=== PATIENT | female | born 1985 | race Caucasian/White ===

== ENCOUNTER 2022-12-13 22:08 | Emergency (ER) | payer MEDICAID, SELFPAY ==
[2022-12-13 22:31] VITALS: BP 152/107; PULSE 109; RESP 18; TEMP 37.3; O2SAT 97; BMI 62.0
--- NOTE | 2022-12-13 22:47 | XR_ITS ---
The [address] [address] Patient Name: ANGELES ORTIZ MRN: [id number] date: 1985 Sex: F Assigned Patient Location: ER Current Patient Location: ER Accession/Order Number: [id number] Exam Date: 12/13/2022 22:50 Report Date: 12/13/2022 23:11 At the request of: GUERDA MONCADA Procedure: XR ankle LT min 3V EXAM: XR ankle LT min 3V HISTORY: Left ankle pain COMPARISON: None. TECHNIQUE: 3 views FINDINGS: Morbid obesity. No osseous lesion, fracture, dislocation or subluxation. Joint spaces are normal. No visualized effusion. No visualized soft tissue edema. IMPRESSION: Morbid obesity with no visualized acute irregularity. Electronically authenticated by: ESTELLA ALVES Date: 12/13/2022 23:11
--- NOTE | 2022-12-14 00:20 | ED.LOWEXI1 ---
HPI - Extremity Injury (Lower) General Chief Complaint: Extremity Injury, Lower Stated Complaint: LOWER EXTREMITY INJURY Time Seen by Provider: 12/14/22 00:11 Source: patient Mode of arrival: Wheelchair Limitations: no limitations History of Present Illness HPI Narrative: patient states she was walking and experienced acute pain of her left ankle. Denies twisting the ankle but did hear a pop. States pain shoot up her leg from her ankle. No numbness or weakness of the ankle. MD complaint: Reports ankle injury Onset (ago): hour(s) Related Data Home Medications Medication Instructions Recorded Confirmed aripiprazole 10 mg tablet 10 mg PO DAILY 12/13/22 12/13/22 buspirone 15 mg tablet 15 mg PO BID 12/13/22 12/13/22 cetirizine 10 mg tablet 10 mg PO DAILY 12/13/22 12/13/22 duloxetine 60 mg capsule,delayed 60 mg PO DAILY 12/13/22 12/13/22 release famotidine 20 mg tablet 20 mg PO Q12H PRN GI 12/13/22 12/13/22 hydroxyzine pamoate 50 mg capsule 50 mg PO DAILY PRN sleep 12/13/22 12/13/22 lamotrigine 100 mg tablet 100 mg PO DAILY 12/13/22 12/13/22 montelukast 10 mg tablet 10 mg PO DAILY 12/13/22 12/13/22 omeprazole 40 mg capsule,delayed 40 mg PO DAILY 12/13/22 12/13/22 release pantoprazole 40 mg tablet,delayed 40 mg PO Q12H PRN GI 12/13/22 12/13/22 release propranolol 60 mg tablet 60 mg PO Q12H 12/13/22 12/13/22 Allergies Allergy/AdvReac Type Severity Reaction Status Date / Time adhesive tape Allergy Rash Verified 12/13/22 22:40 cephalexin [From Keflex] Allergy Rash Verified 12/13/22 22:40 Penicillins Allergy Rash Verified 12/13/22 22:40 amoxicillin [From Augmentin] AdvReac Gastrointestinal Verified 12/13/22 22:38 Upset clavulanic acid AdvReac Gastrointestinal Verified 12/13/22 22:38 [From Augmentin] Upset tramadol [From Ultram] AdvReac Gastrointestinal Verified 12/13/22 22:40 Upset Review of Systems ROS Status of ROS 10 or more systems reviewed and unremarkable except as noted in history and below [facility] Social History Smoking status: Current every day smoker Exam Constitutional Vital Signs - 24 hr 12/13/22 22:31 Temperature 99.2 F Pulse Rate [Monitor] 109 H Respiratory Rate 18 Blood Pressure [Right Radial Artery] 152/107 H Pulse Oximetry 97 Oxygen Delivery Method Room Air Common normals: no apparent distress, oriented x3, no limitations and alert HENMT Common normals: normocephalic and head/scalp atraumatic Eye Common normals: EOMs intact bilaterally and conjunctivae normal Respiratory Common normals: normal respiratory effort, no retractions and no use of accessory muscles Cardio Common normals: regular rate and regular rhythm Extremity Other: lateral malleolus left tender. mild swelling. No warmth or discoloration Neuro Common normals: oriented x3 and CN's II-XII intact bilaterally Psych Appearance: grossly normal Course Vital Signs Vital signs: Vital Signs Temperature 99.2 F 12/13/22 22:31 Pulse Rate 109 H 12/13/22 22:31 Respiratory Rate 18 12/13/22 22:31 Blood Pressure 152/107 H 12/13/22 22:31 Pulse Oximetry 97 12/13/22 22:31 Oxygen Delivery Method Room Air 12/13/22 22:31 Temperature 99.2 F 12/13/22 22:31 Pulse Rate 109 H 12/13/22 22:31 Respiratory Rate 18 12/13/22 22:31 Blood Pressure 152/107 H 12/13/22 22:31 Pulse Oximetry 97 12/13/22 22:31 Oxygen Delivery Method Room Air 12/13/22 22:31 MDM - Extremity Injury (Lower) MDM Narrative Medical decision making narrative: presents complaining of acute left ankle pain that occurred while walking. mild swelling and mod tenderness left lateral malleolus. xray neg for fracture. patient informed of the diagnosis of ankle sprain/strain and discharged home to follow up with her family doctor Discharge Plan Discharge Chief Complaint: Extremity Injury, Lower Clinical Impression: Ankle sprain and strain Patient Disposition: Home, Self-Care Prescriptions / Home Meds: No Action aripiprazole 10 mg tablet 10 mg PO DAILY Patient Comments: HS buspirone 15 mg tablet 15 mg PO BID cetirizine 10 mg tablet 10 mg PO DAILY duloxetine 60 mg capsule,delayed release(DR/EC) 60 mg PO DAILY famotidine 20 mg tablet 20 mg PO Q12H PRN (Reason: GI) hydroxyzine pamoate 50 mg capsule 50 mg PO DAILY PRN (Reason: sleep) lamotrigine 100 mg tablet 100 mg PO DAILY montelukast 10 mg tablet 10 mg PO DAILY omeprazole 40 mg capsule,delayed release(DR/EC) 40 mg PO DAILY pantoprazole 40 mg tablet,delayed release (DR/EC) 40 mg PO Q12H PRN (Reason: GI) propranolol 60 mg tablet 60 mg PO Q12H Instructions: Ankle Sprain (ED) Stand Alone Forms: Portal Instructions Referrals: Physician,Non-Staff, MD [Primary Care Provider] - 1 week Follow Up Appointments: follow up with your doctor next week
[2022-12-14] MEDS: IBUPROFEN 400 MG TABLET 800 MG PO (00:44)
== END 2022-12-14 00:59 | disposition home or self-care (01) ==
PROVIDERS: Emergency Provider Internal Medicine
DX: S93.402A Sprain of unspecified ligament of left ankle, initial encounter (principal); S96.912A Strain of unspecified muscle and tendon at ankle and foot level, left foot, initial encounter; X50.9XXA Other and unspecified overexertion or strenuous movements or postures, initial encounter; Y93.01 Activity, walking, marching and hiking; Z79.899 Other long term (current) drug therapy; F17.210 Nicotine dependence, cigarettes, uncomplicated
CPT/HCPCS: 73610; 99283

== ENCOUNTER 2023-09-14 12:54 | Outpatient (OUT) | payer MEDICAID, SELFPAY ==
--- NOTE | 2023-09-14 13:01 | US_ITS ---
The [address] [address] Patient Name: ANGELES ORTIZ MRN: [id number] date: 1985 Sex: F Assigned Patient Location: [facility] Current Patient Location: [facility] Accession/Order Number: [id number] Exam Date: 09/14/2023 13:02 Report Date: 09/14/2023 13:45 At the request of: KIKO ARGUETA Procedure: US pelvis transvaginal EXAMINATION: US pelvis transvaginal HISTORY: PELVIC PAIN IUD POSITION COMPARISON: No relevant comparison available. FINDINGS: Transvaginal images, Limited exam due to patient body habitus The uterus is normal in size, contour and echotexture measuring 8.9 x 4.3 x 5.7 cm, anteverted, retroflexed The endometrium measures 8 mm, normal. Linear hyperechogenicity within the endometrial cavity consistent with positioned IUD The right ovary is normal measuring 5.2 x 2.6 x 3.4 cm. Normal color and Doppler flow. Multiple follicles The left ovary is not visualized US/US pelvis transvaginal IMPRESSION: Normally positioned IUD Electronically authenticated by: ESTELLA WHITEHEAD Date: 09/14/2023 13:45
== END 2023-09-14 12:55 | disposition home or self-care (01) ==
LOC: NOMS 12:55
PROVIDERS: Visit Provider Obstetrics & Gynecology
DX: R10.2 Pelvic and perineal pain (principal); Z97.5 Presence of (intrauterine) contraceptive device
CPT/HCPCS: 76830

== ENCOUNTER 2023-10-02 08:41 | Outpatient (OUT) | payer MEDICAID, SELFPAY ==
--- NOTE | 2023-10-02 09:22 | ECG_ITS ---
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
== END 2023-10-02 08:42 | disposition home or self-care (01) ==
LOC: PST 08:43
PROVIDERS: PCP Family Medicine; Visit Provider Obstetrics & Gynecology
DX: Z01.810 Encounter for preprocedural cardiovascular examination (principal); T83.39XA Other mechanical complication of intrauterine contraceptive device, initial encounter
CPT/HCPCS: 93005

== ENCOUNTER 2023-10-16 06:13 | Day surgery (SDC) | payer MEDICAID, SELFPAY ==
[2023-10-02 09:24] VITALS: BP 106/64; PULSE 86; TEMP 36.3; O2SAT 96; BMI 64.3
[2023-10-16] VITALS (10 sets, daily range): BP systolic 120–141; BP diastolic 69–88; PULSE 74–91; TEMP 36.4–36.5; O2SAT 94–100; BMI 64.1
--- OUTSIDE RECORDS SUMMARY | 2023-10-16 06:16 | XMS_ITS | CCD ---
Author Organization [facility] Care Team Providers Care Group Leader Name Role Phone GENEVA ESTRADA Unavailable Unavailable RUMSCHLAG, ELIZABET Primary Care Unavailable CHANA THOMAS Referring Unavailable SherrylaKaylin readty Primary Care Provider JASPAL THOMASIS E Referring Unavailable RUMSCHLAG, ELIZABET Primary Care Unavailable KYLAH VARGAS Admitting Unavailable KYLAH VARGAS Attending Unavailable KYLAH VARGAS Referring Unavailable RUMSCHLAG, ELIZABET Primary Care Unavailable Rumschlag Elizabet TRINH Primary Care Provider LucasGeneva mauro CNP Primary Care Provider Prnice Horvath Unavailable Celsa Argueta Unavailable Rupinder Blakely Unavailable Estella Nguyen Unavailable Bambi Gonzalez Unavailable Christa Tyler Unavailable LucasGeneva mauro CNP Primary Care Provider oRb Garcia [facility] Primary Care Provider [phone] NON STAFF Primary Care Provider UnavailROBERT Jo Attending Provider Elizabet Simental Primary Care Provider Kaylin Simentalty Primary Care Provider ARMANDOC, DR JAVED Attending Unavailable MISC, DR JAVED Admitting Unavailable [facility] Primary Care Unavailable MISC, DR JAVED Attending Unavailable MISC, DR JAVED Consulting Unavailable MISC, DR JAVED Admitting Unavailable [facility] Primary Care Unavailable WEST, DR ESTELLA Steiner Consulting Unavailable REQUEST, DR GUTIÉRREZ LISTED Admitting Unavaila ble REQUEST, DR GUTIÉRREZ LISTED Attending Unavaila ble [facility] Primary Care Unavailable MISC, DR JAVED Consulting Unavailable MISC, DR JAVED Consulting Unavailable MISC, DR JAVED Admitting Unavailable [facility] Primary Care Unavailable MISC, DR JAVED Attending Unavailable Darrel Nichols Consulting Unavailable RUMSCHLAG, ELIZABET Consulting Unavailable MISC, DR JAVED Attending Unavailable MISC, DR JAVED Admitting Unavailable [facility] Primary Care Unavailable HAY ., DR STEPHENS Admitting Unavailable HAY ., DR STEPHENS Attending Unavailable [facility] Primary Care Unavailable LAYNECHNANETTE ., MICHELLE MCGINNIS Consulting Unavailabl e ESTELLA ALVES Consulting Unavailable LAYNECHNANETTE ., MICHELLE MCGINNIS Consulting Unavailabl e BERENICE BAKER Admitting Unavailable [facility] Primary Care Unavailable BERENICE BAKER Attending Unavailable MANPREET TORRES Consulting Unavailable JARON FABIAN Admitting Unavailable DENYS ., MR AGUILAR Consulting Unavailable JARON FABIAN Attending Unavailable [facility] Primary Care Unavailable Linda South Unavailable Christa Tyler Attending Unavailable Christa Tyler Admitting Unavailable NON STAFF Primary Care Unavailable Linda South Attending Unavailable Linda South Admitting Unavailable NON STAFF Primary Care Unavailable Rumschlag DO, Eilzabet Primary Care Provider JOE GRANDA Attending Unavailable RUMSCHLAG, ELIZABET Primary Care Unavailable JOE GRANDA Admitting Unavailable JOE GRANDA Attending Unavailable RUMSCHLAG, ELIZABET Primary Care Unavailable JOE GRANDA Admitting Unavailable GORTY, AMINA Referring Unavailable RUMSCHLAG, ELIZABET Primary Care Unavailable MIREILLE DAO Attending Unavailable RUMSCHLAG, ELIZABET Primary Care Unavailable RUMSCHLAG, ELIZABET Primary Care Unavailable JOE GRANDA R Referring Unavailable JOE GRANDA Attending Unavailable RUMSCHLAG, ELIZABET Primary Care Unavailable JOE GRANDA R Referring Unavailable SAADNICKJOE Referring Unavailable RUMSCHLAG, ELIZABET Primary Care Unavailable RUMSCHLAG, ELIZABET Referring Unavailable RUMSCHLAG, ELIZABET Primary Care Unavailable MIREILLE DAO Attending Unavailable RUMSCHLAG, ELIZABET Primary Care Unavailable NONI SUMMERS Referring Unavailable RUMSCHLAG, ELIZABET Primary Care Unavailable GUTNICK, JOE R Referring Unavailable EARL CMGEE Attending Unavailable GUTNICK, JOE R Referring Unavailable RUMSCHLAG, ELIZABET Primary Care Unavailable RUMSCHLAG, ELIZABET Primary Care Unavailable GUTNICK, JOE R Referring Unavailable JAYSHREE HUFFMAN Attending Unavailable RUMSCHLAG, ELIZABET Primary Care Unavailable RUPINDER COLBERT Attending Unavailable GUTNICK, JOE R Referring Unavailable RUMSCHLAG, ELIZABET Primary Care Unavailable GUTNICK, JOE R Referring Unavailable CHRISTOPHER SANTIAGO Attending Unavailable GUTNICK, JOE R Referring Unavailable RUMSCHLAG, ELIZABET Primary Care Unavailable JAYSHREE HUFFMAN Attending Unavailable RUMSCHLAG, ELIZABET Primary Care Unavailable ALEX MONSIVAIS Attending Unavailable GUTNICK, JOE R Referring Unavailable SAYRARUPINDER Attending Unavailable GUTNICK, JOE R Referring Unavailable RUMSCHLAG, ELIZABET Primary Care Unavailable GUTNICK, JOE R Referring Unavailable RUMSCHLAG, ELIZABET Primary Care Unavailable GUTNICK, JOE R Attending Unavailable RUMSCHLAG, ELIZABET Primary Care Unavailable RUMSCHLAG, ELIZABET Primary Care Unavailable JAYSHREE HUFFMAN Referring Unavailable GUTNICK, JOE R Referring Unavailable RUMSCHLAG, ELIZABET Primary Care Unavailable GUTNICK, JOE R Referring Unavailable RUMSCHLAG, ELIZABET Primary Care Unavailable SHAUNNA PERSAUD Attending Unavailable KIKO HARLEY Attending Unavailable KIKO HARLEY Attending Unavailable KATIA LEWIS Attending Unavailable KATIA LEWIS Referring Unavailable OTILIO LEON Attending Unavailable Allergies Allergy Classification Reported Allergen(s) Allergy Type Date of Onset Reaction(s) Facility (2 sources) Adhesive Tape Propensity to adverse reactions to drug 10-11-19 17 [place], [place] (5 sources) Penicillins; Translations: [PENICILLINS] Propensity to adverse reactions to drug 05-29-20 17 Hives, [place], [place] (13 sources) traMADol; Translations: [Ultram TABS] Drug Allergy 08-28-19 13 Hives, [place], [place] (20 sources) Amoxicillin-Pot Clavulanate; Translations: [AMOXICILLIN-POT CLAVULANATE] Propensity to adverse reactions to drug 10-11-19 17 Diarrhea, Other (See Comments) [place], [place] (20 sources) Cephalexin; Translations: [CEPHALEXIN] Drug Allergy 05-06-20 19 Rash, Itching [facility] (1 source) *Adhesive Tape Propensity to adverse reactions 11-10-19 07 [facility] (7 sources) Penicillins Drug Allergy 05-06-20 19 [facility] (20 sources) traMADol; Translations: [TRAMADOL HCL] Drug Allergy 03-13-20 15 Itching [facility] (20 sources) Adhes. Cdlp-Beoj-Fimuprt onium; Translations: [ADHES. OCCT-ACBM-EGAKQMV ONIUM] Drug Allergy 03-13-20 15 Rash [facility] (20 sources) Adhesive Tape-Silicones; Translations: [ADHESIVE TAPE-SILICONES] Drug Allergy 05-06-20 [facility] (9 sources) Amoxicillin / Clavulanate; Translations: [Augmentin TABS] Drug Allergy stomach upset [id number] r 206A [facility] Work Phone: (1 source) Cephalexin; Translations: [Keflex TABS] Drug Allergy [id number] r 206A [facility] Work Phone: (1 source) Penicillins; Translations: [Penicillins] Allergy to drug (finding) [id number] r 206A [facility] Work Phone: (10 sources) Adhesive agent; Translations: [Adhesive] Propensity to adverse reactions 11-10-19 07 rash,blisterin g, [facility] (8 sources) Cephalexin; Translations: [Keflex] Drug Allergy itchy [facility] (9 sources) Doxycycline Drug Allergy stomach upset [facility] Other (9 sources) penicillAMINE Drug Allergy rash [facility] Other (9 sources) Penicillin G Drug Allergy Unknown [facility] Other (20 sources) Penicillins Drug Allergy 11-08-20 19 [facility] (2 sources) Amoxicillin / Clavulanate Drug Allergy 12-18-19 17 stomach upset [facility] (1 source) Penicillins Drug allergy (disorder) [facility] (1 source) traMADol Drug Allergy 08-28-19 13 [facility] Medications Current Medications Medication Drug Class(es) Dates Sig (Normalized) Sig (Original) acetaminophen 500 mg oral tablet (20 sources) Start: 08-11-2023 End: 08-15-2023 take 2 tablets by mouth every six hours acetaminophen (TYLENOL) 500 mg tablet Take 2 tablets by mouth every 6 hours for 4 days. 32 tablet 0 08/11/2023 08/15/2023 Active acetaminophen (T YLENOL) 325 mg tablet Take 650 mg by mouth as needed. 0 Active Comment on above: Take 650 mg by mouth as needed. Take 2 tablets by mo ut every 6 hours for 4 days. Calcium Citrate (10 sources) Calcium Citrate Active take 2 tablets by mo uth once daily, then take 1 tablet by mouth calcium citrate (CALCITRATE) 250 MG TABS tablet Take 500 mg by mouth daily 0 Active 1 ml diphenhydrAMINE hydrochloride 50 mg/ml cartridge (1 source) Histamine-1 Receptor Antagonist Start: 04-06-2020 End: 04-06-2020 diphenhydrAMINE (BENADRYL) injection 12.5 mg docusate sodium 50 mg / sennosides, mcfp 8.6 mg oral tablet (11 sources) Start: 07-20-2023 End: 08-19-2023 take 1 tablet by mouth once daily senna-docusate (SENNA-S) 8.6-50 mg per tablet Take 1 tablet by mouth once daily. 30 tablet 0 07/20/2023 08/19/2023 Active Start: 01-15-2023 take 1-2 tablets by mouth once daily senna-docusate (SENNA-S) 8.6-50 mg per tablet Indications: BMI 60.0-69.9, adult (HCC) , Preop testing Take 1-2 tablets by mouth once daily. Do not take if you have diarrhea, unless otherwise advised. 60 tablet 1 01/15/2023 Active Comment on above: Take 1-2 tablets by mouth once daily. Do not take if you have diarrhea, unless otherwise advised. Take 1 tablet by claudia th once daily. DULoxetine 60 mg delayed release oral capsule (20 sources) Serotonin and Norepinephrine Reuptake Inhibitor Start: 1 take 1 capsule by mouth twice daily DULoxetine [address] Particles capsule DR Take 60 mg by mouth 2 times daily. 0 04/25/2021 Active Start: 07-27-2019 take 1 capsule by [facility] once daily DULoxetine (CYMBALTA) 60 MG extended release capsule TAKE 1 CAPSULE BY MOUTH DAILY 0 07/27/2019 Active Cymbalta Active Comment on above: Take 60 mg by mouth once daily. 2 ml fentaNYL 0.05 mg/ml injection (1 source) Opioid Agonist Start: 0 fentaNYL (SUBLIMAZE) injection 25 mcg fluticasone propionate 0.05 mg/actuat metered dose nasal spray (20 sources) Corticosteroid Start: 1 take 2 spray(s) nasal route once daily fluticasone 50 MCG/ACT Suspension nasal spray instill 2 (TWO) sprays in EACH nostril DAILY 0 04/25/2021 Active End: 03-10-2023 take 2 spray(s) nasal route once daily fluticasone (FLONASE) 50 mcg/actuation nasal spray Use 2 Sprays in each nostril once daily. 0 03/10/2023 Discontinued (Course of therapy completed) Comment on above: Use 2 Sprays in each nostril once daily. 1 ml hydrALAZINE hydrochloride 20 mg/ml injection (1 source) Arteriolar Vasodilator Start: hydrALAZINE (APRESOLINE) injection 5 mg ibuprofen 800 mg oral tablet (2 sources) Nonsteroidal Anti-inflammatory Drug Start: take 1 tablet by mouth three times daily at mealtime as needed Ibuprofen 800 MG 1 tablet with food or milk as needed Orally Three times a day for 10 day(s) October, Active 1 ml meperidine hydrochloride 50 mg/ml injection (1 source) Opioid Agonist Start: meperidine (DEMEROL) injection 12.5 mg methocarbamol 500 mg oral tablet (3 sources) Muscle Relaxant Start: End: take 1 tablet by mouth every eight hours as needed methocarbamol (ROBAXIN) 500 mg tablet Take 1 tablet by mouth three times a day as needed for up to 10 days. 21 tablet 0 08/11/2023 08/21/2023 Active Comment on above: Take 1 tablet by [facility] three times a day as needed for up to 10 days. Multiple Vitamin (Daily-Sandor) tablet (1 source) Start: Multiple Vitamin (Daily-Sandor) tablet 1 tablet daily. 0 04/25/2021 Active mupirocin 0.02 mg/mg topical ointment (1 source) RNA Synthetase Inhibitor Antibacterial Start: Mupirocin 2 % 1 application Externally Three times a day for 7 days Sep, Active omeprazole 40 mg delayed release oral capsule (14 sources) Proton Pump Inhibitor Start: End: take 1 capsule by mouth once daily omeprazole (PRILOSEC) 40 mg capsule Indications: Status post biliopancreatic diversion with duodenal switch Take 1 capsule by mouth once daily. 90 capsule 0 08/17/2023 11/15/2023 Active Start: 08-11-2023 End: 11-09-2023 take 1 capsule by mouth once daily omeprazole (PRILOSEC) 20 mg capsule Take 1 capsule by mouth once daily. 1 capsule 0 08/11/2023 08/17/2023 Discontinued Start: 07-20-2023 End: 10-18-2023 take 1 capsule by mouth twice daily omeprazole (PRILOSEC) 20 mg capsule Take 1 capsule by mouth two times a day. 180 capsule 0 07/20/2023 10/18/2023 Active Start: 03-03-2023 omeprazole (MA ILOSEC) 40 mg capsule TAKE 1 CAPSULE BY MOUTH 30 MINUTES BEFORE morning meal 0 03/03/2023 Active Comment on above: TAKE 1 CAPSULE BY MO [facility] 30 MINUTES BEFORE morning meal Take 1 capsule by mo [facility] two times a day. Take 1 capsule by [facility] once daily. oxyCODONE hydrochloride 5 mg oral tablet (9 sources) Opioid Agonist Start: End: take 1 tablet by mouth every six hours as needed oxyCODONE IR (ROXICODONE) 5 mg immediate release tablet Indications: Postoperative pain Take 1 tablet by mouth every 6 hours as needed for up to 5 days. 10 tablet 0 08/11/2023 08/16/2023 Active Start: 01-15-2023 take 1 tablet by claudia th every eight hours as needed for pain oxyCODONE IR (ROXICODONE) 5 mg immediate release tablet Indications: BMI 60.0-69.9, adult (HCC) , Preop testing Take 1 tablet by mouth every 8 hours as needed for pain. 5 tablet 0 01/15/2023 Active Start: 10-08-2015 End: 09-23-2021 take 5 mg by mouth every four hours as needed oxyCODONE (ROXICODONE) 5 mg/5 mL oral solution Take 5 mL by mouth every 4 hours as needed. 500 mL 0 10/08/2015 09/23/2021 Discontinued (Discontinued by another Health Care Provider) Comment on above: Take 5 mL by mouth e very 4 hours as needed. Take 1 tablet by claudia th every 8 hours as needed for pain. Take 1 tablet by claudia th every 6 hours as needed for up to 5 days. Post-OP Shoe/Soft Top Women - (2 sources) Start: 11-13-2021 Post-OP Shoe/Soft Top Women - as directed left foot sprain October, Active predniSONE 20 mg oral tablet (2 sources) Start: 04-16-2022 take 1 tablet by mouth every twelve hours predniSONE 20 MG 1 tablet Orally 2 times a day for 5 day(s) Mar, Active (8 sources) Active Vit-Fe Fumarate-FA ( VITAMIN PLUS LOW IRON) 27-1 MG TABS (2 sources) Start: 07-27-2019 take 1 tablet by mouth once daily Vit-Fe Fumarate-FA ( VITAMIN PLUS LOW IRON) 27-1 MG TABS TAKE 1 TABLET BY MOUTH DAILY 0 07/27/2019 Active Start: 07-27-2019 take 1 tablet by claudia th once daily Vit-Fe Fumarate-FA ( VITAMIN PLUS LOW IRON) 27-1 MG TABS TAKE 1 TABLET BY MOUTH DAILY 0 07/27/2019 Suspended 1 ml promethazine hydrochloride 25 mg/ml injection (10 sources) Phenothiazine Start: 04-06-2020 End: 04-06-2020 promethazine (PHENERGAN) injection 6.25 mg Start: 05-29-2017 PROMETHAZINE ( Phenergan) up to 50 mg May, 25 mg QUEtiapine 100 mg oral tablet (11 sources) Atypical Antipsychotic Start: 08-03-2019 End: 09-23-2021 take 1 tablet by mouth at bedtime QUEtiapine (SEROQUEL) 100 MG tablet TAKE 1 TABLET BY MOUTH AT BEDTIME 0 08/03/2019 Active SEROquel Not-[place] ing Comment on above: Take 100 mg by mouth once daily as needed. sucralfate 1000 mg oral tablet (20 sources) Aluminum Complex Start: 08-18-2018 take 1 tablet by mouth every six hours Sucralfate 1 GM 1 tablet on an empty stomach Orally four times a day for 30 days Jul, Active End: 03-10-2023 take 1 tablet by mouth four times daily sucralfate (CARAFATE) 1 gram tablet Take 1 g by mouth four times daily. 0 03/10/2023 Discontinued (Course of therapy completed) sucralfate (SCOTTY FATE) 1 GM/10ML suspension Carafate 100 mg/mL oral suspension 0 Active Comment on above: Take 1 g by mouth fo ur times daily. sulfamethoxazole 800 mg / trimethoprim 160 mg oral tablet (1 source) Dihydrofolate Reductase Inhibitor Antibacterial, Sulfonamide Antimicrobial Start: 2 take 1 tablet by mouth every twelve hours Bactrim DS 800-160 MG 1 tablet Orally Twice a day for 10 day(s) Sep, Active Completed/Discontinued Medications Medication Drug Class(es) Dates Sig (Normalized) Sig (Original) ARIPiprazole 10 mg oral tablet (20 sources) Atypical Antipsychotic Start: 11-25-2021 take 1 tablet by mouth once daily at bedtime ARIPiprazole (ABILIFY) 10 mg tablet Take 10 mg by mouth daily at bedtime. 0 11/25/2021 Active Start: 04-30-2021 take 1 tablet by claudia th at bedtime aripiprazole 5 MG tablet Take 5 mg by mouth at bedtime. 0 04/30/2021 Active Comment on above: Take 10 mg by mouth daily at bedtime. busPIRone hydrochloride 15 mg oral tablet (20 sources) Start: 07-08-2023 take 1 tablet by mouth every twelve hours busPIRone (BUSPAR) 15 mg tablet Take 1 tablet by mouth every 12 hours. 0 07/08/2023 Active Start: 11-26-2021 End: 03-10-2023 take 1 tablet by mouth twice daily busPIRone (BUSPAR) 15 mg tablet Take 15 mg by mouth twice daily. 0 11/26/2021 03/10/2023 Discontinued (Course of therapy completed) Start: 04-25-2021 take 1 tablet by claudia th twice daily busPIRone 15 MG tablet Take 15 mg by mouth 2 times daily. 0 04/25/2021 Active take 1 tablet by claudia th twice daily busPIRone (BUSPAR) 5 MG tablet Take 5 mg by mouth 2 times daily 0 Active Comment on above: Take 15 mg by mouth twice daily. Take 1 tablet by claudia th every 12 hours. calcium citrate 1500 mg / cholecalciferol 250 unt oral tablet (1 source) Vitamin D End: take 1 tablet by mouth three times daily at mealtime Calcium Citrate-Vitamin D3 (CITRACAL+D) 315 mg- 250 unit tab Take 1 tablet by mouth three times daily with meals. 0 09/23/2021 Discontinued (Discontinued by another Health Care Provider) Comment on above: Take 1 tablet by claudia th three times daily with meals. cefTRIAXone (9 sources) Cephalosporin Antibacterial Start: 019 ROCEPHIN per 250 mg Sep, 250 mg cetirizine hydrochloride 10 mg oral tablet (20 sources) Histamine-1 Receptor Antagonist Start: 024 take 1 tablet by mouth once cetirizine (ZYRTEC) 10 mg tablet Take 1 tablet by mouth every afternoon. 0 07/08/2023 Active Start: 03-05-2015 End: 03-10-2023 take 1 tablet by mouth once daily cetirizine (ZYRTEC) 10 mg tablet Take 10 mg by mouth once daily. 0 03/05/2015 03/10/2023 Discontinued (Course of therapy completed) Comment on above: Take 10 mg by mouth once daily. Take 1 tablet by claudia th every afternoon. dicyclomine hydrochloride 20 mg oral tablet (20 sources) Anticholinergic Start: 10-22-19 take 1 tablet by mouth every eight hours Dicyclomine HCl 20 MG 1 tablet Orally tid for 30 days Sep, Not-Taking End: 03-10-2023 take 1 tablet by mouth every six hours dicyclomine (BENTYL) 20 mg tablet Take 20 mg by mouth every 6 hours. 0 03/10/2023 Discontinued (Course of therapy completed) End: 09-23-2021 take 1 tablet by mouth four times daily dicyclomine (BENTYL) 20 mg tablet Take 20 mg by mouth four times daily. 0 09/23/2021 Discontinued (Discontinued by another Health Care Provider) Comment on above: Take 20 mg by mouth every 6 hours. Take 20 mg by mouth four times daily. 0.6 ml enoxaparin sodium 100 mg/ml prefilled syringe (9 sources) Low Molecular Weight Heparin Start: 08-11-19 End: 09-10-19 inject 0.6 mL by subcutaneous injection every twelve hours enoxaparin (LOVENOX) 60 mg/0.6 mL syrg Inject 0.6 mL subcutaneously every 12 hours. 36 mL 0 08/11/2023 09/07/2023 Discontinued (Course of therapy completed) Start: 07-20-2023 End: 08-19-2023 inject 0.4 mL by subcutaneous injection once daily enoxaparin (LOVENOX) 40 mg/0.4 mL Inject 0.4 mL subcutaneously once daily. 12 mL 0 07/20/2023 08/19/2023 Active Start: 01-15-2023 inject 0.4 mL by sub cutaneous injection once daily enoxaparin (LOVENOX) 40 mg/0.4 mL Indications: BMI 60.0-69.9, adult (HCC) , Preop testing Inject 0.4 mL subcutaneously once daily. 12 mL 0 01/15/2023 Active Comment on above: Inject 0.4 mL subcut aneously once daily. Inject 0.6 mL subcut aneously every 12 hours. enteric contrast (will be provided with radiology test) (2 sources) Start: 11-04-2021 End: 11-05-2021 enteric contrast (will be provided with radiology test) For CT ABD/PEL W IVCON Routine order Administer, As Directed One Time Only, via Oral, Rectal, both Oral and Rectal, Enteric Tube, Stoma or Indwelling Catheter, Enteric Contrast as designated per enteric contrast guidelines 1 Each 0 11/04/2021 11/05/2021 Start: 11-04-2021 End: 11-05-2021 enteric contrast (will be pr ovided with radiology test) For CT ABD/PEL W IVCON Routine order Administer, As Directed One Time Only, via Oral, Rectal, both Oral and Rectal, Enteric Tube, Stoma or Indwelling Catheter, Enteric Contrast as designated per enteric contrast guidelines 1 Each 0 11/04/2021 11/05/2021 Active Comment on above: For CT ABD/PEL W IVC ON Routine order Administer, As Directed One Time Only, via Oral, Rectal, both Oral and Rectal, Enteric Tube, Stoma or Indwelling Catheter, Enteric Contrast as designated per enteric contrast guidelines esomeprazole 40 mg delayed release oral capsule (1 source) Proton Pump Inhibitor End: 09-24-19 take 1 capsule by mouth once daily esomeprazole (NEXIUM) 40 mg capsule Take 40 mg by mouth once daily. 0 09/23/2021 Discontinued (Discontinued by another Health Care Provider) Comment on above: Take 40 mg by mouth once daily. famotidine 20 mg oral tablet (20 sources) Histamine-2 Receptor Antagonist Start: 10-20-19 take 1 tablet by mouth every twelve hours as needed famotidine (PEPCID) 20 mg tablet Take 20 mg by mouth twice daily as needed. 0 08/26/2021 Active Comment on above: Take 20 mg by mouth twice daily as needed. gabapentin 300 mg oral capsule (2 sources) Anti-epileptic Agent Start: 03-03-20 End: 09-24-19 take 1 capsule by mouth three times daily gabapentin (NEURONTIN) 300 mg capsule Take 300 mg by mouth three times daily. 0 03/03/2015 09/23/2021 Discontinued (Discontinued by another Health Care Provider) Comment on above: Take 300 mg by mouth three times daily. hydrOXYzine pamoate 50 mg oral capsule (20 sources) Antihistamine Start: 07-08-19 take 1 capsule by mouth every twenty-four hours as needed hydrOXYzine pamoate (VISTARIL) 50 mg capsule Take 50 mg by mouth at bedtime as needed. 0 07/08/2023 Active End: 03-10-2023 take 1 capsule by mouth twice daily hydrOXYzine pamoate (VISTARIL) 50 mg capsule Take 50 mg by mouth twice daily. 0 03/10/2023 Discontinued (Course of therapy completed) take 1 capsule by [facility] every twenty-four hours Vistaril 25 MG 1 capsule at bedtime as needed Orally Once a day Active Vistaril Active Comment on above: Take 50 mg by mouth twice daily. Take 50 mg by mouth at bedtime as needed. iv contrast (will be provided with radiology test) (2 sources) Start: 11-04-2021 End: 11-05-2021 iv contrast (will be provided with radiology test) CT ABD/PEL -Inject, intravenously, once for 1 dose.No IV access, insert saline lock prior to the beginning of sedation, infusion, injection of imaging exam. Discontinue saline lock post exam. If Pt. has a central line or IVAD, may access for administration according to line specific nursing protocol. Once exam is complete flush line and de-access according to line specific nursing protocol in the CT contrast administration guidelines link. 1 Each 0 11/04/2021 11/05/2021 Start: 11-04-2021 End: 11-05-2021 iv contrast (will be provide d with radiology test) CT ABD/PEL -Inject, intravenously, once for 1 dose.No IV access, insert saline lock prior to the beginning of sedation, infusion, injection of imaging exam. Discontinue saline lock post exam. If Pt. has a central line or IVAD, may access for administration according to line specific nursing protocol. Once exam is complete flush line and de-access according to line specific nursing protocol in the CT contrast administration guidelines link. 1 Each 0 11/04/2021 11/05/2021 Active Comment on above: CT ABD/PEL -Inject, intravenously, once for 1 dose.No IV access, insert saline lock prior to the beginning of sedation, infusion, injection of imaging exam. Discontinue saline lock post exam. If Pt. has a central line or IVAD, may access for administration according to line specific nursing protocol. Once exam is complete flush line and de-access according to line specific nursing protocol in the [place] contrast administration guidelines link. Ketorolac (20 sources) Nonsteroidal Anti-inflammatory Drug, Cyclooxygenase Inhibitor Start: 11-13-2021 Toradol per 15 mg October, 30 mg Start: 11-09-2019 Toradol per 15 mg October, 30 mg Start: 05-29-2017 Toradol per 15 mg May, 60 mg Start: 04-07-2014 Toradol per 15 mg Mar, 60 mg lamoTRIgine 100 mg oral tablet (20 sources) Mood Stabilizer, Anti-epileptic Agent Start: 11-26-2021 take 1 tablet by mouth once daily in the morning lamoTRIgine (LAMICTAL) 100 mg tablet Take 100 mg by mouth every morning. 0 11/26/2021 Active Start: 04-25-2021 take 1 tablet by claudia th once daily in the morning lamoTRIgine 100 MG tablet Take 100 mg by mouth daily every morning. 0 04/25/2021 Active take 1 tablet by claudia th once daily lamoTRIgine (LAMICTAL) 100 MG tablet Take 100 mg by mouth daily 0 Active Comment on above: Take 100 mg by mouth every morning. levonorgestrel 0.311380 mg/hr intrauterine system (15 sources) Progestin, Progestin-containing Intrauterine Device levonorgestrel (ELISEO NA) 21 mcg/24 hours (8 yrs) 52 mg IUD 1 Each by INTRAUTERINE route one time only. 0 Active Mirena Active Comment on above: 1 Each by INTRAUTERI NE route one time only. lidocaine 0.05 mg/mg medicated patch (6 sources) Antiarrhythmic, Amide Local Anesthetic apply 1 dose transdermal route every twenty-four hours lidocaine (LIDODERM) 5 % Apply 1 Patch as directed every 24 hours. 0 Active Comment on above: Apply 1 Patch as dir ected every 24 hours. loratadine 10 mg oral tablet (20 sources) End: 03-10-20 take 1 tablet by mouth once daily loratadine (CLARITIN) 10 mg tablet Take 10 mg by mouth once daily. 0 03/10/2023 Discontinued (Course of therapy completed) Loratadine Activ e Comment on above: Take 10 mg by mouth once daily. methylPREDNISolone 4 mg oral tablet (1 source) Corticosteroid Start: 2015 End: 2021 take 1 tablet by mouth once methylPREDNISolone (MEDROL, BELÉN,) 4 mg Dose-Pack Take 1 tablet by mouth as directed. As Instructed per package 1 Package 0 10/08/2015 09/23/2021 Discontinued (Discontinued by another Health Care Provider) Comment on above: Take 1 tablet by claudia th as directed. As Instructed per package mometasone furoate 0.001 mg/mg topical ointment (1 source) Corticosteroid Start: 2014 End: 2021 mometasone (ELOCON) 0.1 % ointment Apply 1 application to affected area as needed. 0 03/09/2015 09/23/2021 Discontinued (Discontinued by another Health Care Provider) Comment on above: Apply 1 application to affected area as needed. montelukast 10 mg oral tablet (12 sources) Leukotriene Receptor Antagonist take 1 tablet by mouth once daily at bedtime montelukast (SINGULAIR) 10 mg tablet Take 10 mg by mouth daily at bedtime. 0 Active Comment on above: Take 10 mg by mouth daily at bedtime. ondansetron 4 mg disintegrating oral tablet (20 sources) Serotonin-3 Receptor Antagonist Start: 2023 End: 2023 take 1 tablet by mouth every eight hours as needed for nausea ondansetron orally disintegrating (ZOFRAN ODT) 4 mg disintegrating tablet Indications: prevention of post-operative nausea and vomiting dissolve 1 tablet in mouth every 8 hours as needed for nausea/vomiting. 90 tablet 0 08/17/2023 Active Start: 07-20-2023 take 1 tablet by claudia th every eight hours as needed ondansetron orally disintegrating (ZOFRAN ODT) 4 mg disintegrating tablet Take 1 tablet by mouth every 8 hours as needed for nausea/vomiting for up to 60 doses. 30 tablet 1 07/20/2023 Active Start: 01-15-2023 take 1 tablet by claudia th every eight hours as needed for nausea ondansetron (ZOFRAN) 4 mg tablet Indications: BMI 60.0-69.9, adult (HCC) , Preop testing Take 1 tablet by mouth every 8 hours as needed for nausea/vomiting. 20 tablet 1 01/15/2023 Active Start: 04-06-2020 End: 04-06-2020 ondansetron (ZOFRAN) injecti on 4 mg Start: 10-09-2015 End: 03-10-2023 take 1 tablet by mouth every eight hours as needed ondansetron orally disintegrating (ZOFRAN ODT) 4 mg disintegrating tablet Take 1 tablet by mouth every 8 hours as needed. 20 tablet 0 10/09/2015 03/10/2023 Discontinued (Course of therapy completed) Comment on above: Take 1 tablet by claudia th every 8 hours as needed. Take 1 tablet by claudia th every 8 hours as needed for nausea/vomiting. Take 1 tablet by claudia th every 8 hours as needed for nausea/vomiting for up to 60 doses. dissolve 1 tablet in mouth every 8 hours as needed for nausea/vomiting. OXcarbazepine 300 mg oral tablet (6 sources) Anti-epileptic Agent Start: 4 take 1 tablet by mouth once daily at bedtime OXcarbazepine (TRILEPTAL) 300 mg tablet Take 300 mg by mouth daily at bedtime. 0 07/08/2023 Active Comment on above: Take 300 mg by mouth daily at bedtime. pantoprazole 40 mg delayed release oral tablet (20 sources) Proton Pump Inhibitor Start: 3 End: 3 take 1 tablet by mouth once daily pantoprazole DR (PROTONIX) 40 mg tablet Indications: BMI 60.0-69.9, adult (HCC) , Preop testing Take 1 tablet by mouth once daily. 90 tablet 0 01/15/2023 Active Start: 10-21-2018 take 1 tablet by claudia th every twelve hours Pantoprazole Sodium 40 MG 1 tablet Orally twice a day for 30 days Sep, Active Pantoprazole Sod ium (PROTONIX PO) Take 40 mg by mouth 0 Active Comment on above: Take 40 mg by mouth once daily. Take 1 tablet by claudia th once daily. prazosin 1 mg oral capsule (20 sources) alpha-Adrenergic Jaylon Start: 2 take 1 capsule by mouth once daily at bedtime prazosin (MINIPRESS) 1 mg cap Take 1 mg by mouth daily at bedtime. 0 08/19/2021 Active Comment on above: Take 1 mg by mouth d aily at bedtime. propranolol hydrochloride 60 mg oral tablet (20 sources) beta-Adrenergic Jaylon Start: 2 take 1 tablet by mouth twice daily propranolol (INDERAL) 60 mg tablet Take 60 mg by mouth twice daily. 0 11/25/2021 Active Start: 05-13-2021 take 1 tablet by claudia th twice daily Propranolol HCl 60 MG tablet Take 60 mg by mouth 2 times daily. 0 05/13/2021 Active take 1 tablet by claudia every twenty-four hours Propranolol HCl 60 MG 1 tablet Orally Once a day Active Inderal Active End: 09-23-2021 take 1 tablet by mouth every twelve hours as needed propranolol (INDERAL) 20 mg tablet Take 20 mg by mouth twice daily as needed. 0 09/23/2021 Discontinued (Discontinued by another Health Care Provider) Comment on above: Take 20 mg by mouth twice daily as needed. Take 60 mg by mouth twice daily. topiramate 100 mg oral tablet (20 sources) Start: 03-03-20 End: 03-10-20 take 1 tablet by mouth once daily topiramate (TOPAMAX) 100 mg tablet Take 100 mg by mouth once daily. 0 03/03/2015 03/10/2023 Discontinued (Course of therapy completed) Comment on above: Take 100 mg by mouth once daily. Triamcinolone (10 sources) Corticosteroid Start: 11-09-19 Kenalog -40 mg October, 40 mg Start: 02-06-2015 End: 09-23-2021 triamcinolone acetonide (SAPPHIRE ALOG) 0.1 % cream Apply 1 application to affected area as needed. 0 02/06/2015 09/23/2021 Discontinued (Discontinued by another Health Care Provider) Comment on above: Apply 1 application to affected area as needed. Unspecified Medication (1 source) Start: 10-01-19 Unspecified Medication Quantity: 0 Refills: 0 Ordered: 30-Sep-2021 DO Start : 30-Sep-2021 Active vilazodone hydrochloride 20 mg oral tablet (1 source) Start: 02-19-20 End: 09-24-19 take 20 mg by mouth once daily at breakfast [id number] 20 mg Take 20 mg by mouth daily with breakfast. 0 02/18/2015 09/23/2021 Discontinued (Discontinued by another Health Care Provider) Comment on above: Take 20 mg by mouth daily with breakfast. Problems Active Problems Problem Classification Problem Date Documented Da te Episodic/Chronic Abdominal pain (11 sources) Pain in pelvis; Translations: [Pelvic and perineal pain] Episodic Acute and chronic tonsillitis (20 sources) Enlarged tonsil; Translations: [Hypertrophy of tonsils] Onset: 6 10-04-2015 Chronic Administrative/social admission (6 sources) Patient encounter status; Translations: [Dietary counseling and surveillance] Episodic Complications of surgical procedures or medical care (1 source) Post-surgical malabsorption; Translations: [Postsurgical malabsorption, not elsewhere classified] Chronic Complications of surgical procedures or medical care (1 source) Open wound of abdomen; Translations: [Disruption of external operation (surgical) wound, not elsewhere classified, subsequent encounter] 09-07-2023 Episodic Deficiency and other anemia (9 sources) Iron deficiency anemia; Translations: [Iron deficiency anemia, unspecified] Episodic Diseases of white blood cells (2 sources) Leukocytosis; Translations: [Leukocytosis] Onset: 7 01-17-2017 Chronic E Codes: Struck by; against (1 source) Striking against or struck by other objects, initial encounter; Translations: [STRIKING AGNST/STRUCK OTH OBJ INIT] Onset: 3 Episodic Esophageal disorders (20 sources) Gastroesophageal reflux disease without esophagitis; Translations: [Gastroesophageal reflux disease] Onset: 6 Resolved: 2 02-17-2020 Chronic Fluid and electrolyte disorders (5 sources) Hypokalemia; Translations: [Hypokalemia] Onset: 4 08-07-2023 Episodic Headache; including migraine (20 sources) Refractory migraine with aura; Translations: [Migraine with aura, intractable, without status migrainosus] 03-10-2023 Chronic Headache; including migraine (4 sources) Headache; including migraine; Translations: [HEADACHE UNSPECIFIED] Onset: 3 Immunizations and screening for infectious disease (1 source) Viral screening status; Translations: [Encounter for screening for other viral diseases] Episodic Mood disorders (20 sources) Bipolar disorder; Translations: [Bipolar disorder, unspecified] Onset: 6 10-04-2015 Chronic Mood disorders (2 sources) Bipolar disorder, most recent episode depression; Translations: [Bipolar depression] Onset: 0 02-17-2020 Nausea and vomiting (10 sources) Vomiting; Translations: [Vomiting, unspecified] 08-17-2023 Episodic Neoplasms of unspecified nature or uncertain behavior (1 source) Thrombocytosis; Translations: [Thrombocytosis] Onset: 5 Chronic Osteoarthritis (9 sources) Degenerative joint disease of shoulder region; Translations: [Primary osteoarthritis, right shoulder] Chronic Other aftercare (1 source) Other penitentiary (current) drug therapy; Translations: [OTH [employer]MER CURRENT DRUG THERAPY] Onset: 3 Episodic Other aftercare (2 sources) Surgical follow-up; Translations: [Encounter for follow-up examination after completed treatment for conditions other than malignant neoplasm] 08-17-2023 Episodic Other connective tissue disease (3 sources) Pain in right foot; Translations: [Pain in right foot] Episodic Other connective tissue disease (2 sources) Calcaneal spur, right foot Episodic Other connective tissue disease (2 sources) Plantar fascial fibromatosis Episodic Other connective tissue disease (2 sources) Pain in right foot Episodic Other disorders of stomach and duodenum (2 sources) Gastric fistula; 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] Episodic Other endocrine disorders (9 sources) Hyperprolactinemia; Translations: [Hyperprolactinemia] Chronic Other endocrine disorders (9 sources) Disorder of pituitary gland; Translations: [Disorder of pituitary gland, unspecified] Chronic Other female genital disorders (1 source) Mass of uterine adnexa; Translations: [Other specified symptoms associated with female genital organs] Episodic Other gastrointestinal disorders (1 source) Malabsorption syndrome; Translations: [Other intestinal malabsorption] Chronic Other gastrointestinal disorders (2 sources) Abnormal intestinal absorption; Translations: [Intestinal malabsorption, unspecified] 08-19-2023 Chronic Other gastrointestinal disorders (13 sources) History of sleeve gastrectomy; Translations: [Bariatric surgery status] Onset: 1 Episodic Other gastrointestinal disorders (1 source) Dysphagia; Translations: [Dysphagia, unspecified] Episodic Other gastrointestinal disorders (9 sources) Abdominal bloating; Translations: [Abdominal distension (gaseous)] Episodic Other gastrointestinal disorders (9 sources) Diarrhea; Translations: [Diarrhea, unspecified] Episodic Other gastrointestinal disorders (8 sources) History of bariatric surgical procedure; Translations: [Bariatric surgery status] Onset: 4 Episodic Other injuries and conditions due to external causes (1 source) Other specified injuries of head, initial encounter; Translations: [OTH SPEC INJURIES HEAD INITIAL ENC] Onset: 3 Episodic Other lower respiratory disease (2 sources) Snoring; Translations: [Snoring] Episodic Other nervous system disorders (9 sources) Chronic pain; Translations: [Other chronic pain] Chronic Other nervous system disorders (1 source) Other chronic pain; Translations: [OTHER CHRONIC PAIN] Onset: 2 Chronic Other nervous system disorders (5 sources) Postoperative pain ; Translations: [Other acute postprocedural pain] Onset: 4 08-07-2023 Episodic Other nervous system disorders (1 source) Other acute postprocedural pain; Translations: [Postoperative pain] Onset: 4 Episodic Other non-traumatic joint disorders (1 source) Pain in left ankle and joints of left foot Episodic Other non-traumatic joint disorders (2 sources) Bilateral knee pain; Translations: [Arthralgia of both knees] Onset: 7 01-17-2017 Other nutritional; endocrine; and metabolic disorders (6 sources) Morbid (severe) obesity due to excess calories; Translations: [Morbid (severe) obesity due to excess calories] Onset: 7 Chronic Other nutritional; endocrine; and metabolic disorders (20 sources) Body mass index 40+ - severely obese; Translations: [Body mass index (BMI) 70 or greater, adult] Onset: 0 02-17-2020 Chronic Other nutritional; endocrine; and metabolic disorders (20 sources) Morbid obesity; Translations: [Morbid (severe) obesity due to excess calories] Onset: 1 Chronic Other nutritional; endocrine; and metabolic disorders (3 sources) Severe obesity; Translations: [Morbid (severe) obesity due to excess calories] Chronic Other nutritional; endocrine; and metabolic disorders (3 sources) Body mass index (BMI) 70 or greater, adult; Translations: [BODY MASS INDEX 70/GT ADULT] Onset: 3 Chronic Other nutritional; endocrine; and metabolic disorders (3 sources) Body mass index (BMI) 60.0-69.9, adult; Translations: [BODY MASS INDEX BMI 60.0-69.9 ADULT] Onset: 2 Chronic Other nutritional; endocrine; and metabolic disorders (1 source) Obesity, unspecified; Translations: [OBESITY UNSPECIFIED] Onset: 3 Chronic Other nutritional; endocrine; and metabolic disorders (5 sources) Hypophosphatemia; Translations: [Other disorders of phosphorus metabolism] Onset: 4 08-07-2023 Chronic Other nutritional; endocrine; and metabolic disorders (11 sources) Weight gain; Translations: [Abnormal weight gain] Episodic Other nutritional; endocrine; and metabolic disorders (1 source) Body weight problem; Translations: [Other symptoms and signs concerning food and fluid intake] Episodic Other nutritional; endocrine; and metabolic disorders (2 sources) Abnormal weight gain; Translations: [Abnormal weight gain] Episodic Other skin disorders (9 sources) Hirsutism; Translations: [Hirsutism] Episodic Other upper respiratory disease (9 sources) Seasonal allergy; Translations: [Other seasonal allergic rhinitis] Chronic Other upper respiratory infections (9 sources) Streptococcal sore throat; Translations: [Streptococcal pharyngitis] Episodic Residual codes; unclassified (20 sources) Obstructive sleep apnea syndrome; Translations: [Obstructive sleep apnea (adult) (pediatric)] Onset: 6 02-17-2020 Chronic Residual codes; unclassified (2 sources) Finding related to sleep; Translations: [Sleep apnea, unspecified] Chronic Residual codes; unclassified (5 sources) Obstructive sleep apnea (adult) (pediatric); Translations: [OBSTRUCTIVE SLEEP APNEA] Onset: 6 Chronic Residual codes; unclassified (2 sources) Sleep apnea, unspecified; Translations: [SLEEP APNEA UNSPECIFIED] Onset: 3 Chronic Residual codes; unclassified (9 sources) History of gastrectomy; Translations: [Acquired absence of stomach [part of]] Episodic Residual codes; unclassified (1 source) Left before being seen; Translations: [Procedure and treatment not carried out due to patient leaving prior to being seen by health care provider] 04-13-2023 Episodic Screening and history of mental health and substance abuse codes (2 sources) H/O: anxiety state; Translations: [Personal history of other mental disorders] Onset: 3 Episodic Spondylosis; intervertebral disc disorders; other back problems (20 sources) Other intervertebral disc degeneration, lumbar region; Translations: [Degeneration of lumbar intervertebral disc] Onset: 6 01-06-2017 Chronic Sprains and strains (3 sources) Strain of muscle, fascia and tendon of lower back, initial encounter; Translations: [Unspecified sprain of left foot, initial encounter] Onset: 2 Resolved: 2 Episodic Unclassified (1 source) Other specified postprocedural states; Translations: [Other specified postprocedural states] Onset: 7 Unclassified (1 source) History of sleeve gastrectomy; Translations: [S/P laparoscopic sleeve gastrectomy] Unclassified (2 sources) Finding related to sleep; Translations: [Sleep-disordered breathing] Onset: 7 01-17-2017 Unclassified (1 source) Patient encounter status; Translations: [Preop testing] Unclassified (2 sources) NO SHOW Unclassified (3 sources) LOW BACK PAIN, UNSPECIFIED; Translations: [LOW BACK PAIN, UNSPECIFIED] Onset: 2 Unclassified (1 source) Pain in left ankle and joints of left foot; Translations: [Pain in left ankle and joints of left foot] Onset: 3 Unclassified (1 source) Pain in right foot; Translations: [Pain in right foot] Onset: 2 Viral infection (1 source) Human papilloma virus infection; Translations: [Human papillomavirus in conditions classified elsewhere and of unspecified site] Episodic Past or Other Problems Problem Classification Problem Date Documented Da te Episodic/Chronic Acute and chronic tonsillitis (20 sources) Tonsillitis; Translations: [Acute recurrent tonsillitis, unspecified] Onset: 10-08-2015 10-08-2015 Episodic Fever of unknown origin (2 sources) Fever; Translations: [Fever in adult] Onset: 01-17-2017 01-17-2017 Episodic Headache; including migraine (2 sources) Headache; Translations: [Intractable episodic headache] Onset: 01-17-2017 01-17-2017 Episodic Malaise and fatigue (4 sources) Fatigue; Translations: [Other fatigue] Onset: 08-31-2022 Episodic Neoplasms of unspecified nature or uncertain behavior (20 sources) Thrombocytosis; Translations: [Thrombocytosis] Onset: 03-13-2015 03-13-2015 Episodic Other connective tissue disease (1 source) Pain in left foot Onset: 11-13-2021 Resolved: 11-13-2021 Episodic Other disorders of stomach and duodenum (4 sources) Fistula of stomach and duodenum; Translations: [FISTULA OF STOMACH AND DUODENUM] Onset: 04-11-2022 Episodic Other gastrointestinal disorders (2 sources) Bariatric surgery status; Translations: [BARIATRIC SURGERY STATUS] Onset: 08-31-2022 Episodic Other lower respiratory disease (2 sources) Snoring; Translations: [SNORING] Onset: 08-17-2022 Episodic Other nutritional; endocrine; and metabolic disorders (2 sources) Abnormal weight gain; Translations: [ABNORMAL WEIGHT GAIN] Onset: 08-31-2022 Episodic Residual codes; unclassified (2 sources) Acquired absence of stomach [part of]; Translations: [ACQUIRED ABSENCE OF STOMACH] Onset: 04-14-2022 Episodic Skin and subcutaneous tissue infections (1 source) Cellulitis of buttock Onset: 10-03-2021 Resolved: 10-03-2021 Episodic Spondylosis; intervertebral disc disorders; other back problems (4 sources) Radiculopathy, lumbar region; Translations: [Chronic low back pain] Onset: 01-06-2017 01-17-2017 Episodic Unclassified (1 source) LOW BACK PAIN, UNSPECIFIED; Translations: [LOW BACK PAIN, UNSPECIFIED] Onset: 04-01-2022 Results Test Name Value Interpretation Reference Range Facility [facility] 09-07-2023 CNOV Office Visit (BMINO) SUSI ORTIZ ([id number]) 1985 F FNS Date Time Provider Department 09/07/23 9:30 AM JAYSHREE HUFFMAN During your visit today, we recorded the following information about you: Temperature Pulse Blood pressure Weight 98 degrees 80/minute 107/81 169.9 kg Height 1.626 m Jayshree Huffman APRN.[employer] SALES [employer]ICAL CONSULTANT 09/07/2023 10:12 AM Signed BMI SURGERY Post Op Clinic Note September 07, 2023 INTERVAL HISTORY: Susi Milesenship is here for 1 month post op visit. Her wound is still draining but from a different area now. Drainage is thin, clear but dries yellow. Mild odor Oozes more with standing Index Surgery Date of Surgery: 08/04/2023 Surgeon: Joe Granda MD Surgical Procedure: GASTRECTOMY, GASTRIC RESTRICTIVE PARTIAL (50 TO 100 CM COMMON CHANNEL) TO LIMIT ABSORPTION Pre-surgical weight: 176 kg (388 lb 0.2 oz) Override Index Surgery Information? No Other Bariatric Surgeries Date of Surgery Surgeon Procedure 03/31/2023 Joe Granda MD LAPAROSCOPY ENTEROLYSIS Visit: 4 weeks Today's Visit: Wt 169.9 kg (374 lb 8 oz) BMI 64.28 kg/m2 BMI 64.28 kg/(m2) Last Visit: Wt: 164.2 kg (362 lb) BMI: 62.14 kg/(m2) Total weight loss: 6.128 kg (13 lb 8.2 oz) Reeder weight: 66.1 kg (145 lb 10.6 oz) Excess weight: 109.9 kg (242 lb 5.6 oz) % of excess body weight lost: 6.128 kg (13 lb 8.2 oz) (5.57% of excess weight loss) COMPLICATIONS SINCE LAST VISIT?: Incisional drainage DIET INTAKE: compliant with Phase 3 diet - will add veggies next week Looking for a new protein shake- premier making her sick DAILY SUPPLEMENTS: Calcium: Calcium Citrate w/ vitamin D (1200 - 1500mg) Multivitamin AND Minerals: leida/DS vitamin Iron Supplement: included in multi-vitamin Vitamin B12: included in multivitamin Vitamin D3: included in multi-vitamin Other: biotin EXERCISE: limited Current Outpatient Medications Medication Sig omeprazole (PRILOSEC) 40 mg capsule Take 1 capsule by mouth once daily. ondansetron orally disintegrating (ZOFRAN ODT) 4 mg disintegrating tablet dissolve 1 tablet in mouth every 8 hours as needed for nausea/vomiting. busPIRone (BUSPAR) 15 mg tablet Take 1 tablet by mouth every 12 hours. cetirizine (ZYRTEC) 10 mg tablet Take 1 tablet by mouth every afternoon. hydrOXYzine pamoate (VISTARIL) 50 mg capsule Take 50 mg by mouth at bedtime as needed. OXcarbazepine (TRILEPTAL) 300 mg tablet Take 300 mg by mouth daily at bedtime. levonorgestrel (MIRENA) 21 mcg/24 hours (8 yrs) 52 mg IUD 1 Each by INTRAUTERINE route one time only. montelukast (SINGULAIR) 10 mg tablet Take 10 mg by mouth daily at bedtime. ARIPiprazole (ABILIFY) 10 mg tablet Take 10 mg by mouth daily at bedtime. lamoTRIgine (LAMICTAL) 100 mg tablet Take 100 mg by mouth every morning. prazosin (MINIPRESS) 1 mg cap Take 1 mg by mouth daily at bedtime. propranolol (INDERAL) 60 mg tablet Take 60 mg by mouth twice daily. DULoxetine (CYMBALTA) 60 mg capsule Take 60 mg by mouth once daily. enoxaparin (LOVENOX) 60 mg/0.6 mL syrg Inject 0.6 mL subcutaneously every 12 hours. (Patient not taking: Reported on 09/07/2023) No current facility-administered medications for this visit. REVIEW OF SYSTEMS: +drainage from incisions - no fevers, nausea, vomiting, diarrhea or constipation Denies dumping syndrome, reactive hypoglycemia, gustatory rhinorrhea, Denies abdominal pain, melena, hematochezia, Denies paresthesias, gait abnormality, fatigue, weakness, lower extremity edema, and Denies taking NSAIDs PHYSICAL EXAM: BP 107/81 Pulse 80 Temp 36.7 ?C (98 ?F) (Oral) Ht 162.6 cm (5' 4 ) Wt (!) 169.9 kg (374 lb 8 oz) LMP 07/08/2023 (Approximate) BMI 64.28 kg/m? GENERAL: AANDO, pleasant, NAD RESPIRATORY: non labored ABDOMEN: soft, no tenderness or distention Incision: small opening apx 2 mm, clear drainage expressed. (Examined by Dr Granda). Remainder of incision is closed and healing well NEURO: grossly intact Assessment / PLAN: Susi Ortiz is a 38 year old female with Class III obesity who presented today for 1 month post op follow up s/p GASTRECTOMY, GASTRIC RESTRICTIVE PARTIAL (50 TO 100 CM COMMON CHANNEL) TO LIMIT ABSORPTION - incision draining clear fluid, will monitor for now, pt is keeping it clean and covered. She will call the office with any changes in drainage or appearance of incision - Discussed options for increasing protein intake which will help with both healing and further weight loss - Activity: no heavy lifting/pushing/pulling > 15 lbs until 3 months post op. She can participate in low impact cardio - walking, treadmill, stairs, stationary bike etc. LABS: prior to 3 months follow up: See Epic Orders FOLLOW UP: as scheduled Jayshree Huffman APRN.PRE SALES TECHNICAL CONSULTANT Referring Provider: JOE GRANDA [[id number]] Allergies As of Date: 09/07/2023 Noted Allergy Reaction AD (more content not included)... Normal [facility] ANES POSTPROC EVALon 024 ANES POSTPROC EVAL HNO ID: [id number] Author: AMANDA ALCANTAR DO Service: Anesthesiology Author Type: Physician Type: Anesthesia Postprocedure Evaluation Filed: 08/17/2023 12:02 Note Text: POST ANESTHESIA EVALUATION NOTE : 1985 Procedure Summary Date: 08/04/23 Room / Location: OR / [facility] OR Anesthesia Start: 832 Anesthesia Stop: 1511 Procedure: GASTRECTOMY, GASTRIC RESTRICTIVE PARTIAL (50 TO 100 CM COMMON CHANNEL) TO LIMIT ABSORPTION open biliopancreatic diversion with duodenal switch (Abdomen) Diagnosis: BMI 60.0-69.9, adult (HCC) Preoperative examination (BMI 60.0-69.9, adult (HCC) [Z68.44]) (Preoperative examination [Z01.818]) Surgeons: Joe Granda MD Responsible Provider: Amanda Alcantar DO Anesthesia Type: general ASA Status: 4 Anesthesia Type: general Airway Type: ETT Last Vitals Vitals Value Taken Time BP 117/75 08/17/23 0952 Temp 36.3 ?C (97.3 ?F) 08/17/23 0952 HR SpO2 91 08/04/23 1615 Resp 18 08/11/23 0743 SpO2 97 % 08/17/23 0952 Post Anesthesia Patient Status Patient Evaluation: PACU. PACU/ICU Patient Condition: stable. Anticipated Disposition: inpatient floor planned admission. Neurological Status: aware and responsive. Pulmonary Status: breathing comfortably on room air Airway Control: returned to baseline unsupported. Cardiovascular Status: stable. Pain Management: clinically adequate Postoperative Hydration: acceptable. Intraoperative Events: no significant anesthesia events Post Operative Nausea/Vomiting Status: no significant post operative nausea or vomiting Recommendation: continue current plan of care. Other Remarks: Dentition exam unchanged from preoperative assessment. Anesthesia Observations No Documentation SIGNATURE: Amanda Alcantar DO PATIENT NAME: Susi Milesenship DATE: August 17, 2023 TIME: 11:37 AM CSN: [id number] [facility] [place] CNOVon 08-17-2023 CNOV Office Visit (BMIREJ ) ANGELSUSI ([id number]) 1985 F FNS Date Time Provider Department 08/17/23 10:00 AM JAYSHREE HUFFMAN During your visit today, we recorded the following information about you: Temperature Pulse Blood pressure Weight 97.3 degrees 75/minute 117/75 167.8 kg Height 1.626 m Jayshree Huffman, REY.PRE SALES TECHNICAL CONSULTANT 08/17/2023 10:41 AM Signed Assessment BMI Surgical PostOp Clinic Note August 17, 2023 INTERVAL HISTORY: Susi Ortiz is here for 13 day post op visit. 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 No Other Bariatric Surgeries Date of Surgery Surgeon Procedure 03/31/2023 Joe Granda MD LAPAROSCOPY ENTEROLYSIS Visit: 13 days Today's Visit: Wt 167.8 kg (369 lb 14.9 oz) BMI 63.5 kg/m2 BMI 63.50 kg/(m2) Last Visit: Wt: 176 kg (388 lb 0.2 oz) BMI: 66.60 kg/(m2) Total weight loss: 8.2 kg (18 lb 1.2 oz) Reeder weight: 66.1 kg (145 lb 10.6 oz) Excess weight: 109.9 kg (242 lb 5.6 oz) % of excess body weight lost: 8.2 kg (18 lb 1.2 oz) (7.46% of excess weight loss) Diet: Phase 2 Sugar: Avoiding Dumping syndrome/symptoms: No Wound issues: + drainage mid abdomen incision - sero-sanguinous Abdominal pain: + incisional pain after long car ride Nausea or vomiting: No Reflux: No Gallbladder symptoms: No Hydration status: Good Meeting fluid recommendations from RD? No Do you feel dry/dark urine/progressive fatigue :No Have you had a bowel movement: Yes Symptoms of vitamin deficiency: No Taking PPI Yes If prescribed homegoing lovenox - are you taking your lovenox? Yes Activity: low impact activity Current Outpatient Medications Medication Sig ondansetron orally disintegrating (ZOFRAN ODT) 4 mg disintegrating tablet dissolve 1 tablet in mouth every 8 hours as needed for nausea/vomiting. enoxaparin (LOVENOX) 60 mg/0.6 mL syrg Inject 0.6 mL subcutaneously every 12 hours. omeprazole (PRILOSEC) 20 mg capsule Take 1 capsule by mouth once daily. methocarbamol (ROBAXIN) 500 mg tablet Take 1 tablet by mouth three times a day as needed for up to 10 days. busPIRone (BUSPAR) 15 mg tablet Take 1 tablet by mouth every 12 hours. cetirizine (ZYRTEC) 10 mg tablet Take 1 tablet by mouth every afternoon. hydrOXYzine pamoate (VISTARIL) 50 mg capsule Take 50 mg by mouth at bedtime as needed. levonorgestrel (MIRENA) 21 mcg/24 hours (8 yrs) 52 mg IUD 1 Each by INTRAUTERINE route one time only. senna-docusate (SENNA-S) 8.6-50 mg per tablet Take 1 tablet by mouth once daily. montelukast (SINGULAIR) 10 mg tablet Take 10 mg by mouth daily at bedtime. ARIPiprazole (ABILIFY) 10 mg tablet Take 10 mg by mouth daily at bedtime. lamoTRIgine (LAMICTAL) 100 mg tablet Take 100 mg by mouth every morning. prazosin (MINIPRESS) 1 mg cap Take 1 mg by mouth daily at bedtime. propranolol (INDERAL) 60 mg tablet Take 60 mg by mouth twice daily. DULoxetine (CYMBALTA) 60 mg capsule Take 60 mg by mouth once daily. OXcarbazepine (TRILEPTAL) 300 mg tablet Take 300 mg by mouth daily at bedtime. No current facility-administered medications for this visit. Patient Active Problem List Hypokalemia Hypophosphataemia Post-op pain S/P bariatric surgery Morbid obesity (HCC) Migraine Morbid obesity with body mass index of 60.0-69.9 in adult (HCC) Recurrent tonsillitis Tonsillar enlargement TONEY on CPAP Gastroesophageal reflux disease DDD (degenerative disc disease), lumbar Bipolar affective disorder (HCC) Thrombocytosis Resolved Hospital Problems No resolved problems to display. PHYSICAL EXAM: BP 117/75 Pulse 75 Temp 36.3 ?C (97.3 ?F) (Temporal) Ht 162.6 cm (5' 4 ) Wt (!) 167.8 kg (369 lb 14.9 oz) LMP 07/08/2023 (Approximate) SpO2 97% BMI 63.50 kg/m? AANDO, pleasant, NAD Incision: dermabond prineo intact over entire incision, + leak of thin serous drainage. No erythema, swelling or tenderness. Leak is at center of incision line. 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 She is keeping it clean and covered with a gauze dressing - Ok to advance diet (more content not included)... Normal [facility] Nick 08-13-2023 CNPN Telephone (GENBMI) SUSI ORTIZ ([id number]) 1985 F FNS Date Time Provider Department 08/13/23 NIKI PETERSONI During your visit today, we recorded the following information about you: Niki Peterson, RN 08/13/2023 12:14 PM Signed BMI SPECIALTY CARE COORDINATION POST-OP TELEPHONE CALL BMI Post Op Telephone Call Pt was called on the second day after discharge. DO YOU HAVE A COPY OF YOUR DISCHARGE INSTRUCTIONS YES Is there anything in your discharge instructions that you do not understand? NO Pain: tolerable., taking Tylenol., and taking Oxycodone occasionally. On a scale of 0-10, 0 being not satisfied and 10 being very satisfied, how satisfied were you with your pain management strategy after surgery? 10 ?Patient instructed not to take any narcotic pain medications (such as Roxicodone) within three hours before bedtime as it may cause breathing difficulty. If you are having pain at bedtime you may take Tylenol (liquid form or two extra strength tablets).? Phase 2 full liquid diet: tolerating diet. and pt estimates 90 grams of protein and 90 oz of fluid daily. Incisions: surgical glue intact, scant amount (area the size of pencil eraser head) clear; pink drainage from mid-abdomen incision. Denies fever, pain, redness, swelling. Emotional support provided and encouraged patient to continue to wear loose fitting clothing; use 2 X 2 gauze; Patient verbalized understanding to notify surgery team; use BMI HELP card if has increase in drainage, redness, swelling or fever. GI: + BM and +flatus : WNL Medications: Taking as instructioned at discharge PPI and lovenox pantoprazole DR 40 mg tablet Commonly known as: PROTONIX Take 1 tablet by mouth once daily. enoxaparin 60 mg/0.6 mL Syrg Commonly known as: LOVENOX Inject 0.6 mL subcutaneously every 12 hours. CPAP USE: No Patient states she is waiting to receive replacement machine. States received confirmation from DME replacement should arrive in next 5-7 days. Remind patient of post op appt. Reminded patient of how to reach [facility] or their surgeons office. Patient reminded to seek medical attention if they develop chest pain, a sudden onset of shortness of breath or persistent pain in the calf of their legs - BEST TO ALWAYS present to [facility] hospital where you had your surgery Patient verbalized understanding of all advice and instructions given. Niki Peterson RN Allergies As of Date: 08/13/2023 Noted Allergy Reaction ADHES. [id number] 03/13/2015 2 - Rash ADHESIVE TAPE-SILICONES 05/06/2019 2 - Rash AUGMENTIN (AMOXICILLIN-POT CLAVUL*05/06/2019 6 - Diarrhea KEFLEX (CEPHALEXIN) 05/06/2019 2 - Rash 9 - Itching PENICILLINS 05/06/2019 4 - Hives ULTRAM (TRAMADOL HCL) 03/13/2015 9 - Itching Date Reviewed: 08/11/2023 Reviewed by: Kira Vance RN - Fully Assessed Reason for Visit: Post Op [174] Prescriptions as of 08/13/2023 - acetaminophen (TYLENOL) 500 mg tablet Take 2 tablets by mouth every 6 hours for 4 days. - ondansetron orally disintegrating (ZOFRAN ODT) 4 mg disintegrating tablet dissolve 1 tablet in mouth every 8 hours as needed for nausea/vomiting. - oxyCODONE IR (ROXICODONE) 5 mg immediate release tablet Take 1 tablet by mouth every 6 hours as needed for up to 5 days. - enoxaparin (LOVENOX) 60 mg/0.6 mL syrg Inject 0.6 mL subcutaneously every 12 hours. - omeprazole (PRILOSEC) 20 mg capsule Take 1 capsule by mouth once daily. - methocarbamol (ROBAXIN) 500 mg tablet Take 1 tablet by mouth three times a day as needed for up to 10 days. - busPIRone (BUSPAR) 15 mg tablet Take 1 tablet by mouth every 12 hours. - cetirizine (ZYRTEC) 10 mg tablet Take 1 tablet by mouth every afternoon. - hydrOXYzine pamoate (VISTARIL) 50 mg capsule Take 50 mg by mouth at bedtime as needed. - OXcarbazepine (TRILEPTAL) 300 mg tablet Take 300 mg by mouth daily at bedtime. - levonorgestrel (MIRENA) 21 mcg/24 hours (8 yrs) 52 mg IUD 1 Each by INTRAUTERINE route one time only. - senna-docusate (SENNA-S) 8.6-50 mg per tablet Take 1 tablet by mouth once daily. - montelukast (SINGULAIR) 10 mg tablet Take 10 mg by mouth daily at bedtime. - ARIPiprazole (ABILIFY) 10 mg tablet Take 10 mg by mouth daily at bedtime. - lamoTRIgine (LAMICTAL) 100 mg tablet Take 100 mg by mouth every morning. - prazosin (MINIPRESS) 1 mg cap Take 1 mg by mouth daily at bedtime. - propranolol (INDERAL) 60 mg tablet Take 60 mg by mouth twice daily. - DULoxetine (CYMBALTA) 60 mg capsule Take 60 mg by mouth once daily. Problem List As Of Date 08/13/2023 Noted Resolved Thrombocytosis (HCC) [D75.839] 03/13/2015 Tonsillar enlargement [J35.1] 10/04/2015 TONEY on CPAP [G47.33] 10/04/2015 Gastroesophageal reflux disease [K21.9] 10/04/2015 DDD (degenerative disc disease), lumbar [M51.36]10/04/2015 Bipolar affective dis (more content not included)... Normal [facility] Basic metabolic 2000 panelon 08-11-2023 Anion gap [Moles/Vol] 13 mmol/L Normal 9-18 [facility] Comment on above: Order Comment: Specimen Type: BLOOD SPEC IMENOrdering Facility: [facility] Address: [address] [place] [address] Performed By: #### 1 9123-9, 2777-1, 87817-5 ####[facility]ORATORYCLIA [id number] [place] [id number] [place] Calcium [Mass/Vol] 8.8 mg/dL Normal 8.5-10.2 [facility] Comment on above: Order Comment: Specimen Type: BLOOD SPEC IMENOrdering Facility: [facility] Address: [address] [place] [id number] Performed By: #### 1 9123-9, 2777-1, 51599-1 ####[facility]ORATORYCLIA [id number] [place] [id number] [place] Chloride [Moles/Vol] 105 mmol/L Normal 97-105 [facility] Comment on above: Order Comment: Specimen Type: BLOOD SPEC IMENOrdering Facility: [facility] Address: [address] [place] [address] Performed By: #### 1 9123-9, 2777-, 69600-0 ####[facility]ORATORYCLIA [id number] [place] [id number] [place] CO2 [Moles/Vol] 20 mmol/L Low 22-30 [facility] Comment on above: Order Comment: Specimen Type: BLOOD SPEC IMENOrdering Facility: [facility] Address: [address] [place] [address] Performed By: #### 1 9123-9, 2777-1, 17144-7 ####[facility]ATORYCLIA [id number] [place] [id number] [place] Creatinine [Mass/Vol] 0.57 mg/dL Low 0.58-0.96 [facility] Comment on above: Order Comment: Specimen Type: BLOOD SPEC IMENOrdering Facility: [facility] Address: [address] [place] [address] Performed By: #### 1 9123-9, 2777-1, 58406-5 ####[facility]ATORYCLIA [id number] [place] [id number] [place] Creatinine and Glomerular filtration rate.predicted panel (S/P/Bld) 119 mL/min/1.73m??? Normal >=60 [facility] Comment on above: Order Comment: Specimen Type: BLOOD SPEC IMENOrdering Facility: [facility] Address: [address] [place] [address] Result Comment: Janet mated Glomerular Filtration Rate (eGFR) is calculated using the 2020 CKD-EPI creatinine equation. This equation utilizes serum creatinine, sex, and age as parameters. The creatinine assay has traceable calibration to isotope dilution-mass spectrometry. Refer to KDIGO guidelines for clinical interpretation. In patients with unstable renal function, e.g. those with acute kidney injury, the eGFR may not accurately reflect actual GFR. Performed By: #### 1 9123-9, 2777-1, 75800-7 ####[facility] LABORATORYCLIA [id number] [place] [id number] [place] Glucose [Mass/Vol] 92 mg/dL Normal 74-99 [facility] Comment on above: Order Comment: Specimen Type: BLOOD SPEC IMENOrdering Facility: [facility] Address: [address] [place] [address] Result Comment: The [place] Diabetes Association (ADA) provides guidance for cutoff values for fasting glucose and random glucose. The ADA defines fasting as no caloric intake for at least 8 hours. Fasting plasma glucose results between 100 to 125 mg/dL indicate increased risk for diabetes (prediabetes). Fasting plasma glucose results greater than or equal to 126 mg/dL meet the criteria for diagnosis of diabetes. In the absence of unequivocal hyperglycemia, results should be confirmed by repeat testing. In a patient with classic symptoms of hyperglycemia or hyperglycemic crisis, random plasma glucose results greater than or equal to 200 mg/dL meet the criteria for diagnosis of diabetes. Reference: Standards of Medical Care in Diabetes 2016, [place] [employer]. Diabetes Care. 2016.39(Suppl 1). Performed By: #### 1 9123-9, 2777-, 57941-7 ####[facility]ATORYCLIA [id number] [place] [id number] [place] Potassium [Moles/Vol] 4.2 mmol/L Normal 3.7-5.1 [facility] Comment on above: Order Comment: Specimen Type: BLOOD SPEC IMENOrdering Facility: [facility] Address: [address] [place] [address] Performed By: #### 1 9123-9, 2777, 77679-3 ####[facility] HOSPITALCLIA [id number] [place] [id number] [place] Sodium [Moles/Vol] 138 mmol/L Normal 136-144 [facility] Comment on above: Order Comment: Specimen Type: BLOOD SPEC IMENOrdering Facility: [facility] Address: [address] [place] [address] Performed By: #### 1 9123-9, 2777, 22193-4 ####[facility]ORYCLIA [id number] [place] [id number] [place] Urea nitrogen [Mass/Vol] 3 mg/dL Low 7-21 [facility] Comment on above: Order Comment: Specimen Type: BLOOD SPEC IMENOrdering Facility: [facility] Address: [address] [place] [address] Performed By: #### 1 9123-9, 2777-, 90264-5 ####[facility]ATORYCLIA [id number] [place] [id number] [place] CBC W Auto Differential pane l (Bld)on 08-11-2023 Basophils (Bld) [#/Vol] 0.00 10*3/uL Normal <0.11 [facility] Comment on above: Order Comment: Specimen Type: BLOOD SPEC IMENOrdering Facility: [facility] Address: [address] [place] [address] Performed By: #### 5 7021-8 ####[facility]ORATORYCLIA [id number] [place] [address] [place] Basophils/100 WBC (Bld) 0.0 % Normal [facility] Comment on above: Order Comment: Specimen Type: BLOOD SPEC IMENOrdering Facility: [facility] Address: [address] [place] [address] Performed By: #### 5 7021-8 ####[facility]ATORYCLIA [id number] [address] [place] Differential cell count method Nom (Bld) Manual Normal [facility] Comment on above: Order Comment: Specimen Type: BLOOD SPEC IMENOrdering Facility: [facility] Address: [address] [place] [address] Performed By: #### 5 7021-8 ####[facility] LABORATORYCLIA [id number] [place] [address] [place] Eosinophils (Bld) [#/Vol] 0.62 10*3/uL High <0.46 [facility] Comment on above: Order Comment: Specimen Type: BLOOD SPEC IMENOrdering Facility: [facility] Address: [address] [place] [address] Performed By: #### 5 7021-8 ####[facility] LABORATORYCLIA [id number] [place] [address] [place] Eosinophils/100 WBC (Bld) 4.0 % Normal [facility] Comment on above: Order Comment: Specimen Type: BLOOD SPEC IMENOrdering Facility: [facility] Address: [address] [place] [address] Performed By: #### 5 7021-8 ####[facility] LABORATORYCLIA [id number] [place] [address] [place] Erythrocyte distribution width (RBC) [Ratio] 14.8 % Normal 11.5-15.0 [facility] Comment on above: Order Comment: Specimen Type: BLOOD SPEC IMENOrdering Facility: [facility] Address: [address] [place] [address] Performed By: #### 5 7021-8 ####[facility] LABORATORYCLIA [id number] [place] [id number] [place] Hematocrit (Bld) [Volume fraction] 36.9 % Normal 36.0-46.0 [facility] Comment on above: Order Comment: Specimen Type: BLOOD SPEC IMENOrdering Facility: [facility] Address: [address] [place] [address] Performed By: #### 5 7021-8 ####[facility] LABORATORYCLIA [id number] [place] [address] [place] Hemoglobin (Bld) [Mass/Vol] 11.8 g/dL Normal 11.5-15.5 [facility] Comment on above: Order Comment: Specimen Type: BLOOD SPEC IMENOrdering Facility: [facility] Address: [address] [place] [address] Performed By: #### 5 7021-8 ####[facility] LABORATORYCLIA [id number] [place] [address] [place] Lymphocytes (Bld) [#/Vol] 3.59 10*3/uL Normal 1.00-4.00 [facility] Comment on above: Order Comment: Specimen Type: BLOOD SPEC IMENOrdering Facility: [facility] Address: [address] [place] [address] Performed By: #### 5 7021-8 ####[facility]ORATORYCLIA [id number] [place] [id number] [place] Lymphocytes/100 WBC (Bld) 22.0 % Normal [facility] Comment on above: Order Comment: Specimen Type: BLOOD SPEC IMENOrdering Facility: [facility] Address: [address] [place] [address] Performed By: #### 5 7021-8 ####[facility] LABORATORYCLIA [id number] [address] [place] [facility] MCH (RBC) [Entitic mass] 29.6 pg Normal 26.0-34.0 [facility] Comment on above: Order Comment: Specimen Type: BLOOD SPEC IMENOrdering Facility: [facility] Address: [address] [place] [address] Performed By: #### 5 7021-8 ####[facility] LABORATORYCLIA [id number] [place] [id number] [place] MCHC (RBC) [Mass/Vol] 32.0 g/dL Normal 30.5-36.0 [facility] Comment on above: Order Comment: Specimen Type: BLOOD SPEC IMENOrdering Facility: [facility] Address: [address] [place] [address] Performed By: #### 5 7021-8 ####[facility] LABORATORYCLIA [id number] [address] [place] MCV (RBC) [Entitic vol] 92.7 fL Normal 80.0-100.0 [facility] Comment on above: Order Comment: Specimen Type: BLOOD SPEC IMENOrdering Facility: [facility] Address: [address] [place] [address] Performed By: #### 5 7021-8 ####[facility]ORATORYCLIA [id number] [address] [place] Monocytes (Bld) [#/Vol] 1.56 10*3/uL High <0.87 [facility] Comment on above: Order Comment: Specimen Type: BLOOD SPEC IMENOrdering Facility: [facility] Address: [address] [place] [address] Performed By: #### 5 7021-8 ####[facility] LABORATORYCLIA [id number] [place] [id number] [facility] [place] Monocytes/100 WBC (Bld) 10.0 % Normal [facility] Comment on above: Order Comment: Specimen Type: BLOOD SPEC IMENOrdering Facility: [facility] Address: [address] [place] [address] Performed By: #### 5 7021-8 ####[facility] LABORATORYCLIA [id number] [place] [id number] [place] Neutrophils (Bld) [#/Vol] 9.83 10*3/uL High 1.45-7.50 [facility] Comment on above: Order Comment: Specimen Type: BLOOD SPEC IMENOrdering Facility: [facility] Address: [address] [place] [address] Performed By: #### 5 7021-8 ####[facility] LABORATORYCLIA [id number] [place] [id number] [place] Neutrophils/100 WBC (Bld) 63.0 % Normal [facility] Comment on above: Order Comment: Specimen Type: BLOOD SPEC IMENOrdering Facility: [facility] Address: [address] [place] [address] Performed By: #### 5 7021-8 ####[facility] LABORATORYCLIA [id number] [place] [id number] [place] Nucleated RBC (Bld) [#/Vol] 0.16 10*3/uL High <0.01 [facility] Comment on above: Order Comment: Specimen Type: BLOOD SPEC IMENOrdering Facility: [facility] Address: [address] [place] [address] Performed By: #### 5 7021-8 ####[facility]ATORYCLIA [id number] [place] [id number] [place] Nucleated RBC/100 WBC (Bld) [Ratio] 1.0 /100 WBC Normal [facility] Comment on above: Order Comment: Specimen Type: BLOOD SPEC IMENOrdering Facility: [facility] Address: [address] [place] [address] Performed By: #### 5 7021-8 ####[facility] LABORATORYCLIA [id number] [place] [id number] [place] Platelet mean volume (Bld) [Entitic vol] 9.4 fL Normal 9.0-12.7 [facility] Comment on above: Order Comment: Specimen Type: BLOOD SPEC IMENOrdering Facility: [facility] Address: [address] [place] [address] Performed By: #### 5 7021-8 ####[place] LABORATORYCLIA [id number] [place] [id number] [place] Platelets (Bld) [#/Vol] 579 10*3/uL High 150-400 [facility] Comment on above: Order Comment: Specimen Type: BLOOD SPEC IMENOrdering Facility: [facility] Address: [facility] [place] [address] Performed By: #### 5 7021-8 ####[facility] LABORATORYCLIA [id number] [place] [address] [place] Platelets Estimate (Bld) [#/Vol] Increased Normal [facility] Comment on above: Order Comment: Specimen Type: BLOOD SPEC IMENOrdering Facility: [facility] Address: [address] [place] [address] Performed By: #### 5 7021-8 ####[facility] LABORATORYCLIA [id number] [place] [address] [place] Polychromasia LM Ql (Bld) Slight Normal [facility] Comment on above: Order Comment: Specimen Type: BLOOD SPEC IMENOrdering Facility: [facility] Address: [address] [place] [address] Performed By: #### 5 7021-8 ####[facility] LABORATORYCLIA [id number] [place] [id number] [place] RBC (Bld) [#/Vol] 3.98 10*6/uL Normal 3.90-5.20 [facility] Comment on above: Order Comment: Specimen Type: BLOOD SPEC IMENOrdering Facility: [facility] Address: [address] [place] [address] Performed By: #### 5 7021-8 ####[facility] LABORATORYCLIA [id number] [place] [id number] [place] RED CELL MORPH Reviewed: see result s of individual morphologies Normal [facility] Comment on above: Order Comment: Specimen Type: BLOOD SPEC IMENOrdering Facility: [facility] Address: [address] [place] [address] Performed By: #### 5 7021-8 ####[facility] LABORATORYCLIA [id number] [place] [id number] [place] [facility] [place] Target cells LM Ql (Bld) Few Normal [facility] Comment on above: Order Comment: Specimen Type: BLOOD SPEC IMENOrdering Facility: [facility] Address: [address] [place] [address] Performed By: #### 5 7021-8 ####[facility] LABORATORYCLIA [id number] [place] [id number] [place] [facility] Variant lymphocytes/100 WBC (Bld) 1.0 % Normal [facility] Comment on above: Order Comment: Specimen Type: BLOOD SPEC IMENOrdering Facility: [facility] Address: [address] [place] [address] Performed By: #### 5 7021-8 ####[facility] LABORATORYCLIA [id number] [place] [id number] [place] WBC (Bld) [#/Vol] 15.61 10*3/uL High 3.70-11.00 [facility] Comment on above: Order Comment: Specimen Type: BLOOD SPEC IMENOrdering Facility: [facility] Address: [address] [place] [address] Performed By: #### 5 7021-8 ####[place] LABORATORYCLIA [id number] [place] [id number] [facility] CNDSon 08-11-2023 CNDS HNO ID: [id number] Author: JOE GRANDA MD Service: General Surgery Author Type: Physician Type: Discharge Summary Filed: 08/12/2023 09:13 Note Text: DISCHARGE SUMMARY PATIENT NAME: Susi Ortiz ADMISSION DATE: 08/04/2023 DISCHARGE DATE: 08/11/2023 Attending: Joe Granda MD Reason for Hospitalization: Principal Problem: S/P bariatric surgery (POA: Yes) Active Problems: Post-op pain (POA: Yes) Hypokalemia (POA: No) Hypophosphataemia (POA: No) Resolved Problems: * No resolved hospital problems. 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 Patient tolerated the procedure well and was transferred to the recovery area and then the regular nursing floor for routine post operative care. Recovery was unremarkable. Pain was managed with oral and IV pain medication. Diet was started with phase I and advanced to phase II as tolerated. On the day of discharge, patient was tolerating an oral diet, ambulating well, urinating independently, and pain and nausea were controlled on medications. Patient was deemed stable for discharge home with instructions to schedule outpatient follow up. Outpatient Follow-Up Needs: - follow up with JAYSHREE HUFFMAN NP as listed below Labs AND Procedures Pending at Discharge: No pending results. Patient Condition at Discharge: Stable Discharge Disposition: Home with Self Care Information Provided to Patient: Patient given copy of Discharge Instructions. Discharge Medications: Medication List START taking these medications oxyCODONE IR 5 mg immediate release tablet Commonly known as: ROXICODONE Take 1 tablet by mouth every 6 hours as needed for up to [address] 40 mg tablet Commonly known as: PROTONIX Take 1 tablet by mouth once daily. CHANGE how you take these medications acetaminophen 500 mg tablet Commonly known as: TYLENOL Take 2 tablets by mouth every 6 hours for 4 days. What changed: medication strength how much to take when to take this reasons to take this enoxaparin 60 mg/0.6 mL Syrg Commonly known as: LOVENOX Inject 0.6 mL subcutaneously every 12 hours. What changed: medication strength how much to take when to take this CONTINUE taking these medications ARIPiprazole 10 mg tablet Commonly known as: ABILIFY busPIRone 15 mg tablet Commonly known as: BUSPAR cetirizine 10 mg tablet Commonly known as: ZYRTEC CYMBALTA 60 mg capsule Generic drug: DULoxetine hydrOXYzine pamoate 50 mg capsule Commonly known as: VISTARIL lamoTRIgine 100 mg tablet Commonly known as: LaMICtal MIRENA 21 mcg/24 hours (8 yrs) 52 mg IUD Generic drug: levonorgestrel ondansetron orally disintegrating 4 mg disintegrating tablet Commonly known as: ZOFRAN ODT Take 1 tablet by mouth every 8 hours as needed for nausea/vomiting. OXcarbazepine 300 mg tablet Commonly known as: TRILEPTAL prazosin 1 mg Cap Commonly known as: MINIPRESS propranolol 60 mg tablet Commonly known as: INDERAL senna-docusate 8.6-50 mg per tablet Commonly known as: SENNA-S Take 1 tablet by mouth once daily. SINGULAIR 10 mg tablet Generic drug: montelukast STOP taking these medications famotidine 20 mg tablet Commonly known as: PEPCID omeprazole 20 mg capsule Commonly known as: PriLOSEC omeprazole 40 mg capsule Commonly known as: PriLOSEC Where to Get Your Medications These medications were sent to [facility] [address] [place] [address] Hours: Thursday-Thursday: 7am-7pm, Sat: 9am-1pm acetaminophen 500 mg tablet enoxaparin 60 mg/0.6 mL Syrg ondansetron orally disintegrating 4 mg disintegrating tablet oxyCODONE IR 5 mg immediate release tablet pantoprazole DR 40 mg tablet Appointments for Next 60 Days Date Time Provider Location Dept Phone 08/17/2023 10:00 AM JAYSHREE HUFFMAN [phone] 08/19/2023 11:45 AM ALEX MONSIVAIS [phone] 08/31/2023 9:45 AM [facility] [phone] 08/31/2023 10:30 AM [facility] [phone] 09/07/2023 1:30 PM JAYSHREE HUFFMAN [phone] Highest Readmission Risk Score: 11 The 30 day readmissions risk score is derived from an internally validated risk model which evaluates patient level characteristics, utilization history, medication orders and lab results up until the day of discharge. Patients with a score of 40 or above are considered highest risk for readmission. Specific patient level drivers will be listed at the bottom of the summary. The patient's risk for 30-day readmission is determined using the following contributing factors: Pt variables contributing to increased readmission risk: 22 Active Medication Orders 8.5 First Resulted Calcium (more content not included)... Normal [facility] Magnesium SerPl-mCncon 08-11 Magnesium [Mass/Vol] 2.0 mg/dL Normal 1.7-2.3 [facility] Comment on above: Order Comment: Specimen Type: BLOOD SPEC IMENOrdering Facility: [facility] Address: [address] [place] [id number] Performed By: #### 1 9123-9, 2777-1, 05620-7 ####[facility] LABORATORYCLIA [id number] [place] [id number] [place] NURSING PROGon 08-11-2023 NURSING PROG HNO ID: [id number] Author: KIRA VANCE RN Service: ? Author Type: Registered Nurse Type: Nursing Progress Note Filed: 08/11/2023 13:22 Note Text: Nursing Progress Note: Pt AANDO x 3. Abdomen is soft and tender. Transverse incision open to air with glue. Pt tolerating phase II diet. Pt OOB to bathroom independently. Pt reports flatus. 1+ pitting edema BLE. Pt denies chest pain, SOB, headache, or numbness/tingling. 1320: Pt left unit in stable condition via wheelchair. Pt had all belongings. Reviewed discharge instructions with pt, all questions addressed. IV removed. Pt had prescriptions filled at pharmacy and with belongings. Reviewed that will need to contact providers about all the scheduled appointments due to some may conflict. Pt is concerned due to previous complication, educated to contact provider if anything changes occur. Normal [facility] Phosphate SerPl-mCncon 08-11 Phosphate [Mass/Vol] 4.3 mg/dL Normal 2.7-4.8 [facility] Comment on above: Order Comment: Specimen Type: BLOOD SPEC IMENOrdering Facility: [facility] Address: [address] [place] [address] Performed By: #### 1 9123-9, 2777-1, 03651-7 ####[facility] LABORATORYCLIA [id number] [place] [id number] [place] Basic metabolic 2000 panelon 08-10-2023 Anion gap [Moles/Vol] 12 mmol/L Normal 9-18 [facility] Comment on above: Order Comment: Specimen Type: BLOOD SPEC IMENOrdering Facility: [facility] Address: [address] [place] [address] Performed By: #### 1 9123-9, 44119-1, 2776-06 ####[facility] LABORATORYCLIA [id number] [place] [id number] [place] Calcium [Mass/Vol] 8.7 mg/dL Normal 8.5-10.2 [facility] Comment on above: Order Comment: Specimen Type: BLOOD SPEC IMENOrdering Facility: [facility] Address: [address] [place] [address] Performed By: #### 1 9123-9, 44085-3, 2776-06 ####[facility] LABORATORYCLIA [id number] [place] [address] [place] Chloride [Moles/Vol] 104 mmol/L Normal 97-105 [facility] Comment on above: Order Comment: Specimen Type: BLOOD SPEC IMENOrdering Facility: [facility] Address: [address] [place] [address] Performed By: #### 1 239, , 2776-06 ####[facility] LABORATORYCLIA [id number] [place] [address] [place] CO2 [Moles/Vol] 24 mmol/L Normal 22-30 [facility] Comment on above: Order Comment: Specimen Type: BLOOD SPEC IMENOrdering Facility: [facility] Address: [address] [place] [address] Performed By: #### 1 23-9, , 2776-06 ####[facility] LABORATORYCLIA [id number] [place] [id number] [place] Creatinine [Mass/Vol] 0.65 mg/dL Normal 0.58-0.96 [facility] Comment on above: Order Comment: Specimen Type: BLOOD SPEC IMENOrdering Facility: [facility] Address: [address] [place] [address] Performed By: #### 1 9123-9, 97368-4, 2776-06 ####[facility] LABORATORYCLIA [id number] [place] [address] [place] Creatinine and Glomerular filtration rate.predicted panel (S/P/Bld) 116 mL/min/1.73m??? Normal >=60 [facility] Comment on above: Order Comment: Specimen Type: BLOOD SPEC IMENOrdering Facility: [facility] Address: [address] [place] [address] Result Comment: Janet mated Glomerular Filtration Rate (eGFR) is calculated using the 2020 CKD-EPI creatinine equation. This equation utilizes serum creatinine, sex, and age as parameters. The creatinine assay has traceable calibration to isotope dilution-mass spectrometry. Refer to KDIGO guidelines for clinical interpretation. In patients with unstable renal function, e.g. those with acute kidney injury, the eGFR may not accurately reflect actual GFR. Performed By: #### 1 9123-9, 10648-4, 2776- ####[facility] LABORATORYCLIA [id number] [place] [id number] [place] Glucose [Mass/Vol] 91 mg/dL Normal 74-99 [facility] Comment on above: Order Comment: Specimen Type: BLOOD SPEC IMENOrdering Facility: [facility] Address: [address] [place] [address] Result Comment: The [place] Diabetes Association (ADA) provides guidance for cutoff values for fasting glucose and random glucose. The ADA defines fasting as no caloric intake for at least 8 hours. Fasting plasma glucose results between 100 to 125 mg/dL indicate increased risk for diabetes (prediabetes). Fasting plasma glucose results greater than or equal to 126 mg/dL meet the criteria for diagnosis of diabetes. In the absence of unequivocal hyperglycemia, results should be confirmed by repeat testing. In a patient with classic symptoms of hyperglycemia or hyperglycemic crisis, random plasma glucose results greater than or equal to 200 mg/dL meet the criteria for diagnosis of diabetes. Reference: Standards of Medical Care in Diabetes 2016, [place] [employer]. Diabetes Care. 2016.39(Suppl 1). Performed By: #### 1 9123-9, 09940-3, 2776- ####[facility] LABORATORYCLIA [id number] [place] [id number] [place] Potassium [Moles/Vol] 3.4 mmol/L Low 3.7-5.1 [facility] Comment on above: Order Comment: Specimen Type: BLOOD SPEC IMENOrdering Facility: [facility] Address: [address] [place] [address] Performed By: #### 1 9123-9, 02568-9, 2776-06 ####[facility] LABORATORYCLIA [id number] [place] [id number] [place] Sodium [Moles/Vol] 140 mmol/L Normal 136-144 [facility] Comment on above: Order Comment: Specimen Type: BLOOD SPEC IMENOrdering Facility: [facility] Address: [address] [place] [address] Performed By: #### 1 9123-9, 79243-3, 2776-06 ####[facility] LABORATORYCLIA [id number] [place] [address] [place] Urea nitrogen [Mass/Vol] 3 mg/dL Low 7-21 [facility] Comment on above: Order Comment: Specimen Type: BLOOD SPEC IMENOrdering Facility: [facility] Address: [address] [place] [address] Performed By: #### 1 9123-9, 61751-3, 2776-06 ####[facility] LABORATORYCLIA [id number] [place] [address] [place] CBC W Auto Differential pane l (Bld)on 08-10-2023 Basophils (Bld) [#/Vol] 0.08 10*3/uL Normal <0.11 [facility] Comment on above: Order Comment: Specimen Type: BLOOD SPEC IMENOrdering Facility: [facility] Address: [address] [place] [address] Performed By: #### 5 7021-8 ####[facility] LABORATORYCLIA [id number] [address] [place] Basophils/100 WBC (Bld) 0.6 % Normal [facility] Comment on above: Order Comment: Specimen Type: BLOOD SPEC IMENOrdering Facility: [facility] Address: [address] [place] [address] Performed By: #### 5 7021-8 ####[facility] LABORATORYCLIA [id number] [place] [address] [place] Differential cell count method Nom (Bld) Auto Normal [facility] Comment on above: Order Comment: Specimen Type: BLOOD SPEC IMENOrdering Facility: [facility] Address: [address] [place] [address] Performed By: #### 5 7021-8 ####[facility] LABORATORYCLIA [id number] [place] [address] [place] Eosinophils (Bld) [#/Vol] 0.78 10*3/uL High <0.46 [facility] Comment on above: Order Comment: Specimen Type: BLOOD SPEC IMENOrdering Facility: [facility] Address: [address] [place] [address] Performed By: #### 5 7021-8 ####[facility] LABORATORYCLIA [id number] [address] [place] Eosinophils/100 WBC (Bld) 5.6 % Normal [facility] Comment on above: Order Comment: Specimen Type: BLOOD SPEC IMENOrdering Facility: [facility] Address: [address] [place] [address] Performed By: #### 5 7021-8 ####[facility] LABORATORYCLIA [id number] [address] [place] Erythrocyte distribution width (RBC) [Ratio] 14.7 % Normal 11.5-15.0 [facility] Comment on above: Order Comment: Specimen Type: BLOOD SPEC IMENOrdering Facility: [facility] Address: [address] [place] [address] Performed By: #### 5 7021-8 ####[facility] LABORATORYCLIA [id number] [place] [id number] [place] Hematocrit (Bld) [Volume fraction] 36.9 % Normal 36.0-46.0 [facility] Comment on above: Order Comment: Specimen Type: BLOOD SPEC IMENOrdering Facility: [facility] Address: [address] [place] [address] Performed By: #### 5 7021-8 ####[facility] LABORATORYCLIA [id number] [place] [id number] [place] Hemoglobin (Bld) [Mass/Vol] 11.6 g/dL Normal 11.5-15.5 [facility] Comment on above: Order Comment: Specimen Type: BLOOD SPEC IMENOrdering Facility: [facility] Address: [address] [place] [address] Performed By: #### 5 7021-8 ####[facility] LABORATORYCLIA [id number] [place] [id number] [place] Immature granulocytes (Bld) [#/Vol] 0.11 10*3/uL High <0.10 [facility] Comment on above: Order Comment: Specimen Type: BLOOD SPEC IMENOrdering Facility: [facility] Address: [address] [place] [address] Performed By: #### 5 7021-8 ####[facility] LABORATORYCLIA [id number] [place] [address] [place] Immature granulocytes/100 WBC (Bld) 0.8 % Normal [facility] Comment on above: Order Comment: Specimen Type: BLOOD SPEC IMENOrdering Facility: [facility] Address: [address] [place] [address] Performed By: #### 5 7021-8 ####[facility] LABORATORYCLIA [id number] [place] [id number] [place] Lymphocytes (Bld) [#/Vol] 4.03 10*3/uL High 1.00-4.00 [facility] Comment on above: Order Comment: Specimen Type: BLOOD SPEC IMENOrdering Facility: [facility] Address: [address] [place] [address] Performed By: #### 5 7021-8 ####[facility] LABORATORYCLIA [id number] [place] [id number] [place] Lymphocytes/100 WBC (Bld) 28.8 % Normal [facility] Comment on above: Order Comment: Specimen Type: BLOOD SPEC IMENOrdering Facility: [facility] Address: [address] [place] [address] Performed By: #### 5 7021-8 ####[facility] LABORATORYCLIA [id number] [place] [id number] [place] MCH (RBC) [Entitic mass] 29.2 pg Normal 26.0-34.0 [facility] Comment on above: Order Comment: Specimen Type: BLOOD SPEC IMENOrdering Facility: [facility] Address: [address] [place] [address] Performed By: #### 5 7021-8 ####[facility] LABORATORYCLIA [id number] [place] [address] [place] MCHC (RBC) [Mass/Vol] 31.4 g/dL Normal 30.5-36.0 [facility] Comment on above: Order Comment: Specimen Type: BLOOD SPEC IMENOrdering Facility: [facility] Address: [address] [place] [address] Performed By: #### 5 7021-8 ####[facility] LABORATORYCLIA [id number] [address] [place] MCV (RBC) [Entitic vol] 92.9 fL Normal 80.0-100.0 [facility] Comment on above: Order Comment: Specimen Type: BLOOD SPEC IMENOrdering Facility: [facility] Address: [address] [place] [address] Performed By: #### 5 7021-8 ####[facility] LABORATORYCLIA [id number] [place] [address] [place] Monocytes (Bld) [#/Vol] 1.33 10*3/uL High <0.87 [facility] Comment on above: Order Comment: Specimen Type: BLOOD SPEC IMENOrdering Facility: [facility] Address: [address] [place] [address] Performed By: #### 5 7021-8 ####[facility] LABORATORYCLIA [id number] [address] [place] Monocytes/100 WBC (Bld) 9.5 % Normal [facility] Comment on above: Order Comment: Specimen Type: BLOOD SPEC IMENOrdering Facility: [facility] Address: [address] [place] [address] Performed By: #### 5 7021-8 ####[facility] LABORATORYCLIA [id number] [place] [id number] [place] Neutrophils (Bld) [#/Vol] 7.66 10*3/uL High 1.45-7.50 [facility] Comment on above: Order Comment: Specimen Type: BLOOD SPEC IMENOrdering Facility: [facility] Address: [address] [place] [address] Performed By: #### 5 7021-8 ####[facility] LABORATORYCLIA [id number] [place] [id number] [place] Neutrophils/100 WBC (Bld) 54.7 % Normal [facility] Comment on above: Order Comment: Specimen Type: BLOOD SPEC IMENOrdering Facility: [facility] Address: [address] [place] [address] Performed By: #### 5 7021-8 ####[facility] LABORATORYCLIA [id number] [place] [id number] [place] Nucleated RBC (Bld) [#/Vol] 0.03 10*3/uL High <0.01 [facility] Comment on above: Order Comment: Specimen Type: BLOOD SPEC IMENOrdering Facility: [facility] Address: [address] [place] [address] Performed By: #### 5 7021-8 ####[facility] LABORATORYCLIA [id number] [place] [id number] [place] Nucleated RBC/100 WBC (Bld) [Ratio] 0.2 /100 WBC Normal [facility] Comment on above: Order Comment: Specimen Type: BLOOD SPEC IMENOrdering Facility: [facility] Address: [address] [place] [address] Performed By: #### 5 7021-8 ####[facility] LABORATORYCLIA [id number] [place] [id number] [place] Platelet mean volume (Bld) [Entitic vol] 9.9 fL Normal 9.0-12.7 [facility] Comment on above: Order Comment: Specimen Type: BLOOD SPEC IMENOrdering Facility: [facility] Address: [address] [place] [address] Performed By: #### 5 7021-8 ####[facility] LABORATORYCLIA [id number] [place] [id number] [place] Platelets (Bld) [#/Vol] 557 10*3/uL High 150-400 [facility] Comment on above: Order Comment: Specimen Type: BLOOD SPEC IMENOrdering Facility: [facility] Address: [address] [place] [address] Performed By: #### 5 7021-8 ####[facility] LABORATORYCLIA [id number] [place] [id number] [place] RBC (Bld) [#/Vol] 3.97 10*6/uL Normal 3.90-5.20 [facility] Comment on above: Order Comment: Specimen Type: BLOOD SPEC IMENOrdering Facility: [facility] Address: [address] [place] [address] Performed By: #### 5 7021-8 ####[facility] LABORATORYCLIA [id number] [place] [id number] [place] WBC (Bld) [#/Vol] 13.99 10*3/uL High 3.70-11.00 [facility] Comment on above: Order Comment: Specimen Type: BLOOD SPEC IMENOrdering Facility: [facility] Address: [address] [place] [address] Performed By: #### 5 7021-8 ####[facility] LABORATORYCLIA [id number] [place] [id number] [place] Magnesium SerPl-mCncon 08-10 Magnesium [Mass/Vol] 1.8 mg/dL Normal 1.7-2.3 [facility] Comment on above: Order Comment: Specimen Type: BLOOD SPEC IMENOrdering Facility: [facility] Address: [address] [place] [address] Performed By: #### 1 9123-9, 70764-3, 2776-06 ####[facility] LABORATORYCLIA [id number] [place] [address] [place] NURSING PROGon 08-10-2023 NURSING PROG HNO ID: [id number] Author: SUDHA WELCH, SUSAN Service: ? Author Type: Registered Nurse Type: Nursing Progress Note Filed: 08/10/2023 10:59 Note Text: Other: Alert, doing well getting oob, encouraged to keep walking in the horn; tolerating phase 2 diet, but not taking in much; did c/o abdominal spasms and said she didn't think the robaxin did anything to help, pain management came to talk with her; possible home today, continue to monitor. Normal [facility] Phosphate SerPl-mCncon 08-10 Phosphate [Mass/Vol] 4.2 mg/dL Normal 2.7-4.8 [facility] Comment on above: Order Comment: Specimen Type: BLOOD SPEC IMENOrdering Facility: [facility] Address: [address] [place] [address] Performed By: #### 1 9123-9, , 2776-06 ####[facility] LABORATORYCLIA [id number] [place] [id number] [place] Basic metabolic 2000 panelon 08-09-2023 Anion gap [Moles/Vol] 12 mmol/L Normal 9-18 [facility] Comment on above: Order Comment: Specimen Type: BLOOD SPEC IMENOrdering Facility: [facility] Address: [address] [place] [address] Performed By: #### 2 777-1, , ####[facility] LABORATORYCLIA [id number] [place] [id number] [place] Calcium [Mass/Vol] 8.3 mg/dL Low 8.5-10.2 [facility] Comment on above: Order Comment: Specimen Type: BLOOD SPEC IMENOrdering Facility: [facility] Address: [address] [place] [address] Performed By: #### 2 777-1, , ####[facility] LABORATORYCLIA [id number] [place] [id number] [place] Chloride [Moles/Vol] 103 mmol/L Normal 97-105 [facility] Comment on above: Order Comment: Specimen Type: BLOOD SPEC IMENOrdering Facility: [facility] Address: [address] [place] [address] Performed By: #### 2 777-1, , 87692-5 ####[facility] LABORATORYCLIA [id number] [place] [id number] [place] CO2 [Moles/Vol] 22 mmol/L Normal 22-30 [facility] Comment on above: Order Comment: Specimen Type: BLOOD SPEC IMENOrdering Facility: [facility] Address: [address] [place] [address] Performed By: #### 2 777-1, , ####[facility] LABORATORYCLIA [id number] [place] [id number] [place] Creatinine [Mass/Vol] 0.59 mg/dL Normal 0.58-0.96 [facility] Comment on above: Order Comment: Specimen Type: BLOOD SPEC IMENOrdering Facility: [facility] Address: [address] [place] [address] Performed By: #### 2 777-1, , ####[facility] LABORATORYCLIA [id number] [place] [address] [facility] [place] Creatinine and Glomerular filtration rate.predicted panel (S/P/Bld) 118 mL/min/1.73m??? Normal >=60 [facility] Comment on above: Order Comment: Specimen Type: BLOOD SPEC IMENOrdering Facility: [facility] Address: [address] [place] [address] Result Comment: Janet mated Glomerular Filtration Rate (eGFR) is calculated using the 2020 CKD-EPI creatinine equation. This equation utilizes serum creatinine, sex, and age as parameters. The creatinine assay has traceable calibration to isotope dilution-mass spectrometry. Refer to KDIGO guidelines for clinical interpretation. In patients with unstable renal function, e.g. those with acute kidney injury, the eGFR may not accurately reflect actual GFR. Performed By: #### 2 777-1, , ####[facility] LABORATORYCLIA [id number] [place] [id number] [place] Glucose [Mass/Vol] 98 mg/dL Normal 74-99 [facility] Comment on above: Order Comment: Specimen Type: BLOOD SPEC IMENOrdering Facility: [facility] Address: [address] [place] [address] Result Comment: The [place] Diabetes Association (ADA) provides guidance for cutoff values for fasting glucose and random glucose. The ADA defines fasting as no caloric intake for at least 8 hours. Fasting plasma glucose results between 100 to 125 mg/dL indicate increased risk for diabetes (prediabetes). Fasting plasma glucose results greater than or equal to 126 mg/dL meet the criteria for diagnosis of diabetes. In the absence of unequivocal hyperglycemia, results should be confirmed by repeat testing. In a patient with classic symptoms of hyperglycemia or hyperglycemic crisis, random plasma glucose results greater than or equal to 200 mg/dL meet the criteria for diagnosis of diabetes. Reference: Standards of Medical Care in Diabetes 2016, [place] [employer]. Diabetes Care. 2016.39(Suppl 1). Performed By: #### 2 777-1, , ####[facility] LABORATORYCLIA [id number] [place] [id number] [place] Potassium [Moles/Vol] 3.5 mmol/L Low 3.7-5.1 [facility] Comment on above: Order Comment: Specimen Type: BLOOD SPEC IMENOrdering Facility: [facility] Address: [address] [place] [address] Performed By: #### 2 777-1, , 62315-2 ####[facility] LABORATORYCLIA [id number] [place] [address] [place] Sodium [Moles/Vol] 137 mmol/L Normal 136-144 [facility] Comment on above: Order Comment: Specimen Type: BLOOD SPEC IMENOrdering Facility: [facility] Address: [address] [place] [address] Performed By: #### 2 777-1, , ####[facility] LABORATORYCLIA [id number] [place] [id number] [place] Urea nitrogen [Mass/Vol] 3 mg/dL Low - [facility] Comment on above: Order Comment: Specimen Type: BLOOD SPEC IMENOrdering Facility: [facility] Address: [address] [place] [address] Performed By: #### 2 777-1, , ####[facility] LABORATORYCLIA [id number] [place] [id number] [place] CBC W Auto Differential pane l (Bld)on 08-09-2023 Basophils (Bld) [#/Vol] 0.08 10*3/uL Normal <0.11 [facility] Comment on above: Order Comment: Specimen Type: BLOOD SPEC IMENOrdering Facility: [facility] Address: [address] [place] [address] Performed By: #### 5 7021-8 ####[facility] LABORATORYCLIA [id number] [place] [address] [place] Basophils/100 WBC (Bld) 0.6 % Normal [facility] Comment on above: Order Comment: Specimen Type: BLOOD SPEC IMENOrdering Facility: [facility] Address: [address] [place] [address] Performed By: #### 5 7021-8 ####[facility] LABORATORYCLIA [id number] [place] [id number] [place] Differential cell count method Nom (Bld) Auto Normal [facility] Comment on above: Order Comment: Specimen Type: BLOOD SPEC IMENOrdering Facility: [facility] Address: [address] [place] [address] Performed By: #### 5 7021-8 ####[facility] LABORATORYCLIA [id number] [place] [id number] [place] Eosinophils (Bld) [#/Vol] 0.78 10*3/uL High <0.46 [facility] Comment on above: Order Comment: Specimen Type: BLOOD SPEC IMENOrdering Facility: [facility] Address: [address] [place] [address] Performed By: #### 5 7021-8 ####[facility] LABORATORYCLIA [id number] [place] [id number] [place] Eosinophils/100 WBC (Bld) 5.4 % Normal [facility] Comment on above: Order Comment: Specimen Type: BLOOD SPEC IMENOrdering Facility: [facility] Address: [address] [place] [address] Performed By: #### 5 7021-8 ####[facility] LABORATORYCLIA [id number] [place] [address] [place] Erythrocyte distribution width (RBC) [Ratio] 14.6 % Normal 11.5-15.0 [facility] Comment on above: Order Comment: Specimen Type: BLOOD SPEC IMENOrdering Facility: [facility] Address: [address] [place] [address] Performed By: #### 5 7021-8 ####[facility] LABORATORYCLIA [id number] [place] [address] [place] Hematocrit (Bld) [Volume fraction] 37.6 % Normal 36.0-46.0 [facility] Comment on above: Order Comment: Specimen Type: BLOOD SPEC IMENOrdering Facility: [facility] Address: [address] [place] [address] Performed By: #### 5 7021-8 ####[facility] LABORATORYCLIA [id number] [place] [id number] [place] Hemoglobin (Bld) [Mass/Vol] 11.9 g/dL Normal 11.5-15.5 [facility] Comment on above: Order Comment: Specimen Type: BLOOD SPEC IMENOrdering Facility: [facility] Address: [address] [place] [address] Performed By: #### 5 7021-8 ####[facility] LABORATORYCLIA [id number] [place] [address] [place] Immature granulocytes (Bld) [#/Vol] 0.08 10*3/uL Normal <0.10 [facility] Comment on above: Order Comment: Specimen Type: BLOOD SPEC IMENOrdering Facility: [facility] Address: [address] [place] [address] Performed By: #### 5 7021-8 ####[facility] LABORATORYCLIA [id number] [place] [id number] [facility] Immature granulocytes/100 WBC (Bld) 0.6 % Normal [facility] Comment on above: Order Comment: Specimen Type: BLOOD SPEC IMENOrdering Facility: [facility] Address: [address] [place] [address] Performed By: #### 5 7021-8 ####[facility] LABORATORYCLIA [id number] [address] Lymphocytes (Bld) [#/Vol] 3.71 10*3/uL Normal 1.00-4.00 [facility] Comment on above: Order Comment: Specimen Type: BLOOD SPEC IMENOrdering Facility: [facility] Address: [address] [place] [address] Performed By: #### 5 7021-8 ####[facility] LABORATORYCLIA [id number] [address] Lymphocytes/100 WBC (Bld) 25.7 % Normal [facility] Comment on above: Order Comment: Specimen Type: BLOOD SPEC IMENOrdering Facility: [facility] Address: [address] [place] [address] Performed By: #### 5 7021-8 ####[facility] LABORATORYCLIA [id number] [address] [place] MCH (RBC) [Entitic mass] 29.5 pg Normal 26.0-34.0 [facility] Comment on above: Order Comment: Specimen Type: BLOOD SPEC IMENOrdering Facility: [facility] Address: [address] [place] [address] Performed By: #### 5 7021-8 ####[facility] LABORATORYCLIA [id number] [place] [address] [place] MCHC (RBC) [Mass/Vol] 31.6 g/dL Normal 30.5-36.0 [facility] Comment on above: Order Comment: Specimen Type: BLOOD SPEC IMENOrdering Facility: [facility] Address: [address] [place] [address] Performed By: #### 5 7021-8 ####[facility] LABORATORYCLIA [id number] [place] [id number] [place] MCV (RBC) [Entitic vol] 93.1 fL Normal 80.0-100.0 [facility] Comment on above: Order Comment: Specimen Type: BLOOD SPEC IMENOrdering Facility: [facility] Address: [address] [place] [address] Performed By: #### 5 7021-8 ####[facility] LABORATORYCLIA [id number] [place] [address] [place] Monocytes (Bld) [#/Vol] 1.36 10*3/uL High <0.87 [facility] Comment on above: Order Comment: Specimen Type: BLOOD SPEC IMENOrdering Facility: [facility] Address: [address] [place] [address] Performed By: #### 5 7021-8 ####[facility] LABORATORYCLIA [id number] [place] [id number] [place] Monocytes/100 WBC (Bld) 9.4 % Normal [facility] Comment on above: Order Comment: Specimen Type: BLOOD SPEC IMENOrdering Facility: [facility] Address: [address] [place] [address] Performed By: #### 5 7021-8 ####[facility] LABORATORYCLIA [id number] [place] [id number] [place] Neutrophils (Bld) [#/Vol] 8.44 10*3/uL High 1.45-7.50 [facility] Comment on above: Order Comment: Specimen Type: BLOOD SPEC IMENOrdering Facility: [facility] Address: [address] [place] [address] Performed By: #### 5 7021-8 ####[facility] LABORATORYCLIA [id number] [place] [id number] [place] Neutrophils/100 WBC (Bld) 58.3 % Normal [facility] Comment on above: Order Comment: Specimen Type: BLOOD SPEC IMENOrdering Facility: [facility] Address: [address] [place] [address] Performed By: #### 5 7021-8 ####[facility] LABORATORYCLIA [id number] [place] [id number] [place] Nucleated RBC (Bld) [#/Vol] 0.03 10*3/uL High <0.01 [facility] Comment on above: Order Comment: Specimen Type: BLOOD SPEC IMENOrdering Facility: [facility] Address: [address] [place] [address] Performed By: #### 5 7021-8 ####[facility] LABORATORYCLIA [id number] [place] [id number] [place] Nucleated RBC/100 WBC (Bld) [Ratio] 0.2 /100 WBC Normal [facility] Comment on above: Order Comment: Specimen Type: BLOOD SPEC IMENOrdering Facility: [facility] Address: [address] [place] [address] Performed By: #### 5 7021-8 ####[facility] LABORATORYCLIA [id number] [place] [id number] [place] Platelet mean volume (Bld) [Entitic vol] 9.5 fL Normal 9.0-12.7 [facility] Comment on above: Order Comment: Specimen Type: BLOOD SPEC IMENOrdering Facility: [facility] Address: [address] [place] [address] Performed By: #### 5 7021-8 ####[facility] LABORATORYCLIA [id number] [place] [id number] [place] Platelets (Bld) [#/Vol] 499 10*3/uL High 150-400 [facility] Comment on above: Order Comment: Specimen Type: BLOOD SPEC IMENOrdering Facility: [facility] Address: [address] [place] [address] Performed By: #### 5 7021-8 ####[facility]ORATORYCLIA [id number] [place] [id number] [place] [facility] RBC (Bld) [#/Vol] 4.04 10*6/uL Normal 3.90-5.20 [facility] Comment on above: Order Comment: Specimen Type: BLOOD SPEC IMENOrdering Facility: [facility] Address: [address] [place] [address] Performed By: #### 5 7021-8 ####[facility]ORATORYCLIA [id number] [place] [id number] [facility] WBC (Bld) [#/Vol] 14.45 10*3/uL High 3.70-11.00 [facility] Comment on above: Order Comment: Specimen Type: BLOOD SPEC IMENOrdering Facility: [facility] Address: [address] [place] [address] Performed By: #### 5 7021-8 ####[facility] LABORATORYCLIA [id number] [place] [id number] [facility] CONSULT PROGon 08-09-2023 CONSULT PROG HNO ID: [id number] Author: BUCKY FLORES APRN.PRE SALES TECHNICAL CONSULTANT Service: Pain Management Author Type: Nurse Practitioner Type: Consult Progress Note Filed: 08/09/2023 14:25 Note Text: EPIDURAL REMOVAL NOTE - APMS Epidural catheter has been held since 930 and pain has been well controlled. Pt is agreeable to removal. Available labs reviewed below. Anticoagulation of heparin 7500 units last given 08/08 at 2145. Pt denies neuro motor, sensory symptoms. Epidural catheter was removed at bedside, tip intact. Patient tolerated well. Pt instructed to observe for new sensory or motor symptoms. APTT 30.3 09/06/2015 PT Sec 9.8 09/06/2015 PT INR 0.9 09/06/2015 Hemoglobin 11.9 08/09/2023 Hematocrit 37.6 08/09/2023 Platelet Count 499 08/09/2023 Creatinine, Whole Blood (iSTAT) 0.59 08/09/2023 BUN 3 08/09/2023 Recommendations: Continue Acetaminophen 1000 mg PO Q 6 h Continue home meds (as order per primary team) Continue Fentanyl 25 mcg IV Q 4 h for BTP (none utilized) Continue lidocaine patch QHS Start Oxycodone 5-10 mg PO Q 4 H PRN for moderate to severe pain Start Robaxin 500 mg PO TID for muscle spasms with holding parameters (recommend for 5-7 days at time of discharge) Bowel regimen per primary team Encourage OOB as tolerated Will sign off, thank you for the consult. Please call with questions. SIGNATURE: Bucky Flores APRN.PRE SALES TECHNICAL CONSULTANT PAGER:[phone] DATE of SERVICE: August 09, 2023 TIME of SERVICE: 2:20 PM Normal [facility] Magnesium [facility] 08-09 Magnesium [Mass/Vol] 1.8 mg/dL Normal 1.7-2.3 [facility] Comment on above: Order Comment: Specimen Type: BLOOD SPEC IMENOrdering Facility: [facility] Address: [address] [place] [address] Performed By: #### 2 777-1, 39258-4, 66428-9 ####[facility] LABORATORYCLIA [id number] [place] [id number] [facility] NURSING PROGon 08-09-2023 NURSING PROG HNO ID: [id number] Author: KIRA VANCE RN Service: ? Author Type: Registered Nurse Type: Nursing Progress Note Filed: 08/09/2023 14:29 Note Text: Nursing Progress Note: Pt AANDO x 3. Abdomen is is tender and soft. Transverse incision open to air with glue. SR on tele. Pt is up with standby assist. Epidural is in place but currently on hold per LIP. Pt tolerating a phase II diet. 1221: Sent text page to surgical team, pt is requesting something for nausea. 1429: Epidural removed by LIP. Pt is ambulating in hallway. Normal [facility] [Mass/Vol] 3.2 mg/dL Normal 2.7-4.8 [facility] Comment on above: Order Comment: Specimen Type: BLOOD SPEC IMENOrdering Facility: [facility] Address: [address] [place] [address] Performed By: #### 2 777-1, , ####[facility] LABORATORYCLIA [id number] [place] [address] [place] Basic metabolic 2000 panelon 08-08-2023 Anion gap [Moles/Vol] 12 mmol/L Normal 9-18 [facility] Comment on above: Order Comment: Specimen Type: BLOOD SPEC IMENOrdering Facility: [facility] Address: [address] [place] [address] [place] [address] Performed By: #### 2 777-1, , ####[facility] LABORATORYCLIA [id number] [place] [id number] [place] Calcium [Mass/Vol] 8.6 mg/dL Normal 8.5-10.2 [facility] Comment on above: Order Comment: Specimen Type: BLOOD SPEC IMENOrdering Facility: [facility] Address: [address] [place] [address] Performed By: #### 2 777-1, , ####[facility] LABORATORYCLIA [id number] [place] [id number] [place] Chloride [Moles/Vol] 105 mmol/L Normal 97-105 [facility] Comment on above: Order Comment: Specimen Type: BLOOD SPEC IMENOrdering Facility: [facility] Address: [address] [place] [address] Performed By: #### 2 777-1, , ####[facility] LABORATORYCLIA [id number] [place] [id number] [place] CO2 [Moles/Vol] 21 mmol/L Low 22-30 [facility] Comment on above: Order Comment: Specimen Type: BLOOD SPEC IMENOrdering Facility: [facility] Address: [address] [place], [place] [address] [address] Performed By: #### 2 777-1, , ####[facility] LABORATORYCLIA [id number] [place] [id number] [place] Creatinine [Mass/Vol] 0.58 mg/dL Normal 0.58-0.96 [facility] Comment on above: Order Comment: Specimen Type: BLOOD SPEC IMENOrdering Facility: [facility] Address: [address] [place] [address] Performed By: #### 2 777-1, , ####[facility] LABORATORYCLIA [id number] [place] [id number] [place] Creatinine and Glomerular filtration rate.predicted panel (S/P/Bld) 119 mL/min/1.73m??? Normal >=60 [facility] Comment on above: Order Comment: Specimen Type: BLOOD SPEC IMENOrdering Facility: [facility] Address: [address] [place] [address] Result Comment: Janet mated Glomerular Filtration Rate (eGFR) is calculated using the 2020 CKD-EPI creatinine equation. This equation utilizes serum creatinine, sex, and age as parameters. The creatinine assay has traceable calibration to isotope dilution-mass spectrometry. Refer to KDIGO guidelines for clinical interpretation. In patients with unstable renal function, e.g. those with acute kidney injury, the eGFR may not accurately reflect actual GFR. Performed By: #### 2 777-1, , ####[facility]ORATORYCLIA [id number] [place] [id number] [place] Glucose [Mass/Vol] 97 mg/dL Normal 74-99 [facility] Comment on above: Order Comment: Specimen Type: BLOOD SPEC IMENOrdering Facility: [facility] Address: [address] [place] [address] Result Comment: The [place] [employer] (ADA) provides guidance for cutoff values for fasting glucose and random glucose. The ADA defines fasting as no caloric intake for at least 8 hours. Fasting plasma glucose results between 100 to 125 mg/dL indicate increased risk for diabetes (prediabetes). Fasting plasma glucose results greater than or equal to 126 mg/dL meet the criteria for diagnosis of diabetes. In the absence of unequivocal hyperglycemia, results should be confirmed by repeat testing. In a patient with classic symptoms of hyperglycemia or hyperglycemic crisis, random plasma glucose results greater than or equal to 200 mg/dL meet the criteria for diagnosis of diabetes. Reference: Standards of Medical Care in Diabetes 2016, [place] [employer]. Diabetes Care. 2016.39(Suppl 1). Performed By: #### 2 777-1, , ####[facility] LABORATORYCLIA [id number] [place] [id number] [place] Potassium [Moles/Vol] 3.9 mmol/L Normal 3.7-5.1 [facility] Comment on above: Order Comment: Specimen Type: BLOOD SPEC IMENOrdering Facility: [facility] Address: [address] [place] [address] Performed By: #### 2 777-1, , ####[facility] LABORATORYCLIA [id number] [place] [id number] [place] Sodium [Moles/Vol] 138 mmol/L Normal 136-144 [facility] Comment on above: Order Comment: Specimen Type: BLOOD SPEC IMENOrdering Facility: [facility] Address: [address] [place] [address] Performed By: #### 2 777-1, , ####[facility] [facility] LABORATORYCLIA [id number] [place] [id number] [place] Urea nitrogen [Mass/Vol] 3 mg/dL Low 7-21 [facility] Comment on above: Order Comment: Specimen Type: BLOOD SPEC IMENOrdering Facility: [facility] Address: [address] [place] [address] Performed By: #### 2 777-1, , 84933-7 ####[facility] LABORATORYCLIA [id number] [place] [id number] [place] CBC W Auto Differential pane l (Bld)on 08-08-2023 Basophils (Bld) [#/Vol] 0.08 10*3/uL Normal <0.11 [facility] Comment on above: Order Comment: Specimen Type: BLOOD SPEC IMENOrdering Facility: [facility] Address: [address] [place] [address] Performed By: #### 5 7021-8 ####[facility] LABORATORYCLIA [id number] [place] [id number] [place] Basophils/100 WBC (Bld) 0.5 % Normal [facility] Comment on above: Order Comment: Specimen Type: BLOOD SPEC IMENOrdering Facility: [facility] Address: [address] [place] [address] Performed By: #### 5 7021-8 ####[facility] LABORATORYCLIA [id number] [place] [id number] [place] Differential cell count method Nom (Bld) Auto Normal [facility] Comment on above: Order Comment: Specimen Type: BLOOD SPEC IMENOrdering Facility: [facility] Address: [address] [place] [address] Performed By: #### 5 7021-8 ####[facility] LABORATORYCLIA [id number] [place] [address] [place] Eosinophils (Bld) [#/Vol] 0.70 10*3/uL High <0.46 [facility] Comment on above: Order Comment: Specimen Type: BLOOD SPEC IMENOrdering Facility: [facility] Address: [address] [place] [address] Performed By: #### 5 7021-8 ####[facility] LABORATORYCLIA [id number] [address] [place] Eosinophils/100 WBC (Bld) 4.7 % Normal [facility] Comment on above: Order Comment: Specimen Type: BLOOD SPEC IMENOrdering Facility: [facility] Address: [address] [place] [address] Performed By: #### 5 7021-8 ####[facility] LABORATORYCLIA [id number] [place] [address] [place] Erythrocyte distribution width (RBC) [Ratio] 14.2 % Normal 11.5-15.0 [facility] Comment on above: Order Comment: Specimen Type: BLOOD SPEC IMENOrdering Facility: [facility] Address: [address] [place] [address] Performed By: #### 5 7021-8 ####[facility] LABORATORYCLIA [id number] [place] [id number] [place] Hematocrit (Bld) [Volume fraction] 35.7 % Low 36.0-46.0 [facility] Comment on above: Order Comment: Specimen Type: BLOOD SPEC IMENOrdering Facility: [facility] Address: [address] [place] [address] Performed By: #### 5 7021-8 ####[facility] LABORATORYCLIA [id number] [place] [address] [place] Hemoglobin (Bld) [Mass/Vol] 11.4 g/dL Low 11.5-15.5 [facility] Comment on above: Order Comment: Specimen Type: BLOOD SPEC IMENOrdering Facility: [facility] Address: [address] [place] [address] Performed By: #### 5 7021-8 ####[facility] LABORATORYCLIA [id number] [place] [id number] [place] Immature granulocytes (Bld) [#/Vol] 0.06 10*3/uL Normal <0.10 [facility] Comment on above: Order Comment: Specimen Type: BLOOD SPEC IMENOrdering Facility: [facility] Address: [address] [place] [address] Performed By: #### 5 7021-8 ####[facility] LABORATORYCLIA [id number] [place] [address] [place] Immature granulocytes/100 WBC (Bld) 0.4 % Normal [facility] Comment on above: Order Comment: Specimen Type: BLOOD SPEC IMENOrdering Facility: [facility] Address: [address] [place] [address] Performed By: #### 5 7021-8 ####[facility] LABORATORYCLIA [id number] [place] [id number] [place] Lymphocytes (Bld) [#/Vol] 3.44 10*3/uL Normal 1.00-4.00 [facility] Comment on above: Order Comment: Specimen Type: BLOOD SPEC IMENOrdering Facility: [facility] Address: [address] [place] [address] Performed By: #### 5 7021-8 ####[facility] LABORATORYCLIA [id number] [address] [place] Lymphocytes/100 WBC (Bld) 22.9 % Normal [facility] Comment on above: Order Comment: Specimen Type: BLOOD SPEC IMENOrdering Facility: [facility] Address: [address] [place] [address] Performed By: #### 5 7021-8 ####[facility] LABORATORYCLIA [id number] [address] [place] MCH (RBC) [Entitic mass] 29.6 pg Normal 26.0-34.0 [facility] Comment on above: Order Comment: Specimen Type: BLOOD SPEC IMENOrdering Facility: [facility] Address: [address] [place] [address] Performed By: #### 5 7021-8 ####[facility] LABORATORYCLIA [id number] [address] [place] [facility] MCHC (RBC) [Mass/Vol] 31.9 g/dL Normal 30.5-36.0 [facility] Comment on above: Order Comment: Specimen Type: BLOOD SPEC IMENOrdering Facility: [facility] Address: [address] [place] [address] Performed By: #### 5 7021-8 ####[facility] LABORATORYCLIA [id number] [address] [place] MCV (RBC) [Entitic vol] 92.7 fL Normal 80.0-100.0 [facility] Comment on above: Order Comment: Specimen Type: BLOOD SPEC IMENOrdering Facility: [facility] Address: [address] [place] [address] Performed By: #### 5 7021-8 ####[facility] LABORATORYCLIA [id number] [address] [place] Monocytes (Bld) [#/Vol] 1.42 10*3/uL High <0.87 [facility] Comment on above: Order Comment: Specimen Type: BLOOD SPEC IMENOrdering Facility: [facility] Address: [address] [place] [address] Performed By: #### 5 7021-8 ####[facility] LABORATORYCLIA [id number] [place] [id number] [place] Monocytes/100 WBC (Bld) 9.4 % Normal [facility] Comment on above: Order Comment: Specimen Type: BLOOD SPEC IMENOrdering Facility: [facility] Address: [address] [place] [address] Performed By: #### 5 7021-8 ####[facility] LABORATORYCLIA [id number] [place] [address] [place] Neutrophils (Bld) [#/Vol] 9.33 10*3/uL High 1.45-7.50 [facility] Comment on above: Order Comment: Specimen Type: BLOOD SPEC IMENOrdering Facility: [facility] Address: [address] [place] [address] Performed By: #### 5 7021-8 ####[facility] LABORATORYCLIA [id number] [place] [id number] [place] Neutrophils/100 WBC (Bld) 62.1 % Normal [facility] Comment on above: Order Comment: Specimen Type: BLOOD SPEC IMENOrdering Facility: [facility] Address: [address] [place] [address] Performed By: #### 5 7021-8 ####[facility] LABORATORYCLIA [id number] [place] [id number] [place] Nucleated RBC (Bld) [#/Vol] 10*3/uL Normal <0.01 [facility] Comment on above: Order Comment: Specimen Type: BLOOD SPEC IMENOrdering Facility: [facility] Address: [address] [place] [address] Performed By: #### 5 7021-8 ####[facility] LABORATORYCLIA [id number] [place] [address] [place] Nucleated RBC/100 WBC (Bld) [Ratio] 0.0 /100 WBC Normal [facility] Comment on above: Order Comment: Specimen Type: BLOOD SPEC IMENOrdering Facility: [facility] Address: [address] [place] [address] Performed By: #### 5 7021-8 ####[facility] LABORATORYCLIA [id number] [place] [address] [place] Platelet mean volume (Bld) [Entitic vol] 9.8 fL Normal 9.0-12.7 [facility] Comment on above: Order Comment: Specimen Type: BLOOD SPEC IMENOrdering Facility: [facility] Address: [address] [place] [address] Performed By: #### 5 7021-8 ####[facility] LABORATORYCLIA [id number] [place] [id number] [place] Platelets (Bld) [#/Vol] 457 10*3/uL High 150-400 [facility] Comment on above: Order Comment: Specimen Type: BLOOD SPEC IMENOrdering Facility: [facility] Address: [address] [place] [address] Performed By: #### 5 7021-8 ####[facility] LABORATORYCLIA [id number] [place] [id number] [place] RBC (Bld) [#/Vol] 3.85 10*6/uL Low 3.90-5.20 [facility] Comment on above: Order Comment: Specimen Type: BLOOD SPEC IMENOrdering Facility: [facility] Address: [address] [place] [address] Performed By: #### 5 7021-8 ####[facility] LABORATORYCLIA [id number] [place] [id number] [place] WBC (Bld) [#/Vol] 15.03 10*3/uL High 3.70-11.00 [facility] Comment on above: Order Comment: Specimen Type: BLOOD SPEC IMENOrdering Facility: [facility] Address: [address] [place] [address] Performed By: #### 5 7021-8 ####[facility] LABORATORYCLIA [id number] [place] [id number] [place] CONSULT PROGon 08-08-2023 CONSULT PROG HNO ID: [id number] Author: AUGUSTUS HERRERA PA-C Service: Pain Management Author Type: Physician Detective Supervisor Type: Consult Progress Note Filed: 08/08/2023 10:26 Note Text: EPIDURAL CATHETER PROGRESS NOTE PATIENT NAME: Susi Ortiz SERVICE DATE: 08/08/2023 SERVICE TIME: 8:18 AM PRIMARY SERVICE: General Surgery ASSESSMENT : Susi Ortiz is a 38 year old female with a hx of morbid obesity, TONEY on CPAP, thrombocytosis, bipolar disorder, GERD and migraines. She is now POD# 4 s/p GASTRECTOMY, GASTRIC RESTRICTIVE PARTIAL TO LIMIT ABSORPTION open biliopancreatic diversion with duodenal switch who is recovering as expected postoperatively T7-8 Epidural placed to aid in post op pain control. Patient reports good pain control at rest 10/06. Epidural site without signs or symptoms of infection, no erythema, tenderness, drainage, or warmth. Levels appreciated around T6 - T 12 PLAN/Recs: Continue Bupi 0.0625%/Fent epidural analgesia at 01/30// to promote comfort, mobility, and pulmonary toilet (plan for removal on Thursday pending post-op course) Continue Acetaminophen 1000 mg PO Q 6 h Continue home meds (as order per primary team) Continue Fentanyl 25 mcg IV Q 4 h for BTP (none utilized) Continue lidocaine patch QHS Continue Robaxin 500 mg IV TID for muscle spasms with holding parameters Bowel regimen per primary team The plan was discussed in detail with patient +/- family, bedside RN, APMS staff and primary service, who expressed agreement, understanding and comfort with the plan. Thank you for including us in her care. Please call us with any questions or concerns. APMS will continue to follow. SUBJECTIVE Interval HPI: Susi Ortiz is a 38 year old female who is POD# 4 s/p GASTRECTOMY, GASTRIC RESTRICTIVE PARTIAL TO LIMIT ABSORPTION open biliopancreatic diversion with duodenal switch who is recovering as expected postoperatively T7-8 Epidural placed to aid in post op pain control. Pain at surgical site? Yes, above incision Condition of surgical site: c/d/i Other locations of pain? Yes. Location: mild CHRISTIAN (baseline) Pain score at rest: 4 Pain score with movement (cough, deep breathe, ambulation, etc): 8 Able to cough/deep breathe adequately?:Yes Has patient been out of bed in a chair? Yes Has patient been ambulating?: Yes Is the patient tolerating Physical Therapy?: yes Character: aching and tight band Duration: intermittent Radiation: No Relieved: at times - Epidural bolus Is patient satisfied with pain control: Yes Overnight Events: None Overnight Pain Interventions: no Diet: bariatric phase 1 OBJECTIVE PERTINENT ROS: ALLERGIES ALLERGIES Allergen Reactions Adhes. Loec-Okvh-Kn* Rash Adhesive Tape-Silic* Rash Augmentin [Amoxicil* Diarrhea Keflex [Cephalexin] Rash, Itching Penicillins Hives Ultram [Tramadol Hc* Itching Information retrieved from Allergy section. Is the patient intubated and sedated? No. Numbness?: No Weakness?: No Nausea?: No Vomitting?: No Pruritis?: No Back pain?: No Headache?: Not today Sedation?: No Confusion/Delirium?: No Other: none Epidural Location: Thoracic Epidural catheter placed: Day of surgery MEDICATIONS: Epidural Medications and SHANK CUTTER Settings Bupivacaine 0.0625% + Fentanyl 2 mcg/mL Basal rate: 8 mL/hr. Patient Demand Bolus: 4 mL. Lockout interval: 15 minutes. Patient received 6/16 doses in the last 4 hours. Additional medication(s) given: See below Anticoagulation therapy: Heparin 5000 units TID Last Dose given: 08/08 536 Allergy: ALLERGIES Allergen Reactions Adhes. Rtrw-Xyvl-Ec* Rash Adhesive Tape-Silic* Rash Augmentin [Amoxicil* Diarrhea Keflex [Cephalexin] Rash, Itching Nsaids (Non-Steroid* Contraindication-Medical Surgical History of bariatric surgery Penicillins Hives Ultram [Tramadol Hc* Itching MEDICATIONS: Current Facility-Administered Medications Medication Dose Route Frequency NaCl 0.9% iv flush bag 20 mL INTRAVENOUS PRN bupivacaine 0.0625%-fentaNYL (PF) 2 mcg/mL epidural in NaCl 0.9% 250 mL EPIDURAL CONTINUOUS busPIRone 15 mg tab(s) (BUSPAR) 15 mg ORAL BID lamoTRIgine 100 mg tab(s) (LaMICtal) 100 mg ORAL DAILY OXcarbazepine 300 mg tab(s) (TRILEPTAL) 300 mg ORAL AT BEDTIME hydrOXYzine pamoate 50 mg cap(s) (VISTARIL) 50 mg ORAL AT BEDTIME PRN ARIPiprazole 10 mg tab(s) (ABILIFY) 10 mg ORAL AT BEDTIME montelukast 10 mg tab(s) (SINGULAIR) 10 mg ORAL AT BEDTIME lidocaine 4 % 1 Patch (SALONPAS) 1 Patch TRANSDERMAL DAILY AT 9 PM And lidocaine patch - REMOVE OTHER DAILY And lidocaine - VERIFY PATCH OTHER q 8 H DULoxetine 60 mg cap(s) (CYMBALTA) 60 mg ORAL DAILY phenol 1 [place] (CHLORASEPTIC) 1 [place] MUCOUS MEMBRANE (TOPICAL MOUTH AND THROAT) q 2 H PRN cetirizine 10 mg tab(s) (ZYRTEC) 10 mg ORAL DAILY acetaminophen 1,000 mg tab(s) (TYLENOL) 1,000 mg ORAL q 6 H fentaNYL 50 mcg/mL 25 mcg injection (SUBLI (more content not included)... Normal [facility] Magnesium [facility] 08-08 Magnesium [Mass/Vol] 1.8 mg/dL Normal 1.7-2.3 [facility] Comment on above: Order Comment: Specimen Type: BLOOD SPEC IMENOrdering Facility: [facility] Address: [address] [place] [address] Performed By: #### 2 777-1, 22471-0, 80960-7 ####[facility] LABORATORYCLIA [id number] [address] NURSING PROGon 08-08-2023 NURSING PROG HNO ID: [id number] Author: KIRA VANCE RN Service: ? Author Type: Registered Nurse Type: Nursing Progress Note Filed: 08/08/2023 09:15 Note Text: Nursing Progress Note: Pt AANDO x 3. Abdomen is soft and tender. Upper transverse incision open to air with glue. Epidural infusing per MAR. Lungs diminished on RA. SR on tele. Pt up with 1 assist. Pt tolerating phase II bariatric diet. Normal [facility] Phosphate [facility] 08-08 Phosphate [Mass/Vol] 3.2 mg/dL Normal 2.7-4.8 [facility] Comment on above: Order Comment: Specimen Type: BLOOD SPEC IMENOrdering Facility: [facility] Address: [address] [place] [address] Performed By: #### 2 777-1, 75015-8, 95957-1 ####[place] LABORATORYCLIA [id number] [address] Urinalysis complete panel (U )on 08-08-2023 Bacteria LM.HPF (Urine sed) [#/Area] Rare Abnormal None Seen [facility] Comment on above: Order Comment: Specimen Type: URINE SPEC IMENOrdering Facility: [facility] Address: [address] [place] [address] Performed By: #### 2 4356-8 ####[facility] LABORATORYCLIA [id number] [address] LABCLIA [id number] [address] [place] Bilirubin Ql (U) Negative Normal Negative [facility] Comment on above: Order Comment: Specimen Type: URINE SPEC IMENOrdering Facility: [facility] Address: [address] [place] [address] Performed By: #### 2 4356-8 ####[facility] LABORATORYCLIA [id number] [address] LABCLIA [id number] [address] [place] Clarity (Unsp spec) Turbid Abnormal Clear [facility] Comment on above: Order Comment: Specimen Type: URINE SPEC IMENOrdering Facility: [facility] Address: [address] [place] [address] Performed By: #### 2 4356-8 ####[facility] LABORATORYCLIA [id number] [address] LABCLIA [id number] [address] Color (U) Light [place] Abnormal Yellow [facility] Comment on above: Order Comment: Specimen Type: URINE SPEC IMENOrdering Facility: [facility] Address: [address] [place] [address] Performed By: #### 2 4356-8 ####[facility] LABORATORYCLIA [id number] [address] LABCLIA [id number] [place] [address] [place] Epithelial cells LM.HPF (Urine sed) [#/Area] Moderate Normal [facility] Comment on above: Order Comment: Specimen Type: URINE SPEC IMENOrdering Facility: [facility] Address: [address] [place] [address] Performed By: #### 2 4356-8 ####[facility] LABORATORYCLIA [id number] [address] LABCLIA [id number] [address] [place] Glucose Test strip (U) [Mass/Vol] Negative Normal Trace, Negative [facility] Comment on above: Order Comment: Specimen Type: URINE SPEC IMENOrdering Facility: [facility] Address: [address] [place] [address] Performed By: #### 2 4356-8 ####[facility] LABORATORYCLIA [id number] [address] LABCLIA [id number] [place] [address] [place] Hemoglobin Ql (U) 3+ Abnormal Negative, Trace [facility] Comment on above: Order Comment: Specimen Type: URINE SPEC IMENOrdering Facility: [facility] Address: [address] [place] [address] Performed By: #### 2 4356-8 ####[facility] LABORATORYCLIA [id number] [address] LABCLIA [id number] [place] [address] [place] Ketones Ql (U) 2+ Abnormal Negative, Trace [facility] Comment on above: Order Comment: Specimen Type: URINE SPEC IMENOrdering Facility: [facility] Address: [address] [place] [address] Performed By: #### 2 4356-8 ####[facility] LABORATORYCLIA [id number] [address] LABCLIA [id number] [address] [place] Leukocyte esterase Test strip Ql (U) 250 Ko/uL Abnormal Negative, 25 Ko/uL [facility] Comment on above: Order Comment: Specimen Type: URINE SPEC IMENOrdering Facility: [facility] Address: [address] [place] [address] Performed By: #### 2 4356-8 ####[facility] LABORATORYCLIA [id number] [address] LABCLIA [id number] [address] [place] Nitrite Ql (U) Negative Normal Negative [facility] Comment on above: Order Comment: Specimen Type: URINE SPEC IMENOrdering Facility: [facility] Address: [address] [place] [address] Performed By: #### 2 4356-8 ####[facility] LABORATORYCLIA [id number] [address] LABCLIA [id number] [address] [place] pH (U) 6.0 [pH] Normal 5.0-8.0 [facility] Comment on above: Order Comment: Specimen Type: URINE SPEC IMENOrdering Facility: [facility] Address: [address] [place] [address] Performed By: #### 2 4356-8 ####[facility] LABORATORYCLIA [id number] [address] LABCLIA [id number] [address] [place] Protein (U) [Mass/Vol] 1+ Abnormal Trace, Negative [facility] Comment on above: Order Comment: Specimen Type: URINE SPEC IMENOrdering Facility: [facility] Address: [address] [place] [address] Performed By: #### 2 4356-8 ####[place] [facility]ORATORYCLIA [id number] [address] LABCLIA [id number] [place] [address] [place] RBC LM.HPF (Urine sed) [#/Area] /[HPF] Abnormal 0-3 /HPF [facility] Comment on above: Order Comment: Specimen Type: URINE SPEC IMENOrdering Facility: [facility] Address: [address] [place] [address] Performed By: #### 2 4356-8 ####[facility] LABORATORYCLIA [id number] [address] LABCLIA [id number] [place] [address] [place] Specific gravity (U) [Rel density] 1.011 Normal 1.005-1.03 0 [facility] Comment on above: Order Comment: Specimen Type: URINE SPEC IMENOrdering Facility: [facility] Address: [address] [place] [address] Performed By: #### 2 4356-8 ####[facility] [facility]ORATORYCLIA [id number] [address] LABCLIA [id number] [address] [place] Urobilinogen Ql (U) Normal Normal Normal [facility] Comment on above: Order Comment: Specimen Type: URINE SPEC IMENOrdering Facility: [facility] Address: [address] [place] [address] Performed By: #### 2 4356-8 ####[place] [facility]ORATORYCLIA [id number] [address] LABCLIA [id number] [address] [place] WBC LM.HPF (Urine sed) [#/Area] /[HPF] Abnormal 0-5 /HPF [facility] Comment on above: Order Comment: Specimen Type: URINE SPEC IMENOrdering Facility: [facility] Address: [address] [place] [address] Performed By: #### 2 4356-8 ####[facility] [facility]ORATORYCLIA [id number] [address] LABCLIA [id number] [address] [place] Urinalysis complete pnl Uron 08-08-2023 Urinalysis complete panel (U) COLOR: Light [place] CLARITY: Turbid GLUCOSE, URINE: Negative BILIRUBIN, URINE: Negative KETONES, URINE: 2+ SPECIFIC GRAVITY, UR: 1.011 HEMOGLOBIN/BLOOD, UR: 3+ PH, URINE: 6.0 PROTEIN, URINE: 1+ UROBILINOGEN: Normal NITRITES: Negative LEUKEST: 250 Ko/uL WBC, URINE: >25 /HPF RBC, URINE: >25 /HPF BACTERIA: Rare SQUAMOUS EPITHELIAL CELLS: Moderate ORGANISM ID: 1 50,000-<100,000 CFU/ml Mixed microbiota No further workup Normal [facility] Comment on above: Order Comment: Specimen Type: URINE SPEC IMENOrdering Facility: [facility] Address: [address] [place] [address] Performed By: #### 2 4356-8 ####[facility] [facility]ORATORYCLIA [id number] [address] LABCLIA [id number] [place] [address] [place] Basic metabolic 2000 panelon 08-07-2023 Anion gap [Moles/Vol] 12 mmol/L Normal - [facility] Comment on above: Order Comment: Specimen Type: BLOOD SPEC IMENOrdering Facility: [facility] Address: [address] [place] [address] Performed By: #### 1 9123-9, 14458-5, 2776-06 ####[facility] LABORATORYCLIA [id number] [place] [id number] [place] Calcium [Mass/Vol] 8.4 mg/dL Low 8.5-10.2 [facility] Comment on above: Order Comment: Specimen Type: BLOOD SPEC IMENOrdering Facility: [facility] Address: [address] [place] [address] Performed By: #### 1 9123-9, 91065-8, 2776-06 ####[facility] LABORATORYCLIA [id number] [place] [id number] [place] Chloride [Moles/Vol] 105 mmol/L Normal 97-105 [facility] Comment on above: Order Comment: Specimen Type: BLOOD SPEC IMENOrdering Facility: [facility] Address: [address] [place] [address] Performed By: #### 1 9123-9, , 2776-06 ####[facility] LABORATORYCLIA [id number] [place] [id number] [place] CO2 [Moles/Vol] 22 mmol/L Normal 22-30 [facility] Comment on above: Order Comment: Specimen Type: BLOOD SPEC IMENOrdering Facility: [facility] Address: [address] [place] [address] Performed By: #### 1 9123-9, , 2776-06 ####[facility] LABORATORYCLIA [id number] [place] [id number] [place] Creatinine [Mass/Vol] 0.61 mg/dL Normal 0.58-0.96 [facility] Comment on above: Order Comment: Specimen Type: BLOOD SPEC IMENOrdering Facility: [facility] Address: [address] [place] [address] Performed By: #### 1 9123-9, 44748-3, 2776-06 ####[facility] LABORATORYCLIA [id number] [place] [id number] [place] Creatinine and Glomerular filtration rate.predicted panel (S/P/Bld) 118 mL/min/1.73m??? Normal >=60 [facility] Comment on above: Order Comment: Specimen Type: BLOOD SPEC IMENOrdering Facility: [facility] Address: [address] [place] [address] Result Comment: Janet mated Glomerular Filtration Rate (eGFR) is calculated using the 2020 CKD-EPI creatinine equation. This equation utilizes serum creatinine, sex, and age as parameters. The creatinine assay has traceable calibration to isotope dilution-mass spectrometry. Refer to KDIGO guidelines for clinical interpretation. In patients with unstable renal function, e.g. those with acute kidney injury, the eGFR may not accurately reflect actual GFR. Performed By: #### 1 9123-9, 87759-9, 2777- ####[facility] LABORATORYCLIA [id number] [place] [address] [place] Glucose [Mass/Vol] 99 mg/dL Normal 74-99 [facility] Comment on above: Order Comment: Specimen Type: BLOOD SPEC IMENOrdering Facility: [facility] Address: [address] [facility] [place] [address] Result Comment: The [place] Diabetes Association (ADA) provides guidance for cutoff values for fasting glucose and random glucose. The ADA defines fasting as no caloric intake for at least 8 hours. Fasting plasma glucose results between 100 to 125 mg/dL indicate increased risk for diabetes (prediabetes). Fasting plasma glucose results greater than or equal to 126 mg/dL meet the criteria for diagnosis of diabetes. In the absence of unequivocal hyperglycemia, results should be confirmed by repeat testing. In a patient with classic symptoms of hyperglycemia or hyperglycemic crisis, random plasma glucose results greater than or equal to 200 mg/dL meet the criteria for diagnosis of diabetes. Reference: Standards of Medical Care in Diabetes 2016, [place] [employer] Association. Diabetes Care. 2016.39(Suppl 1). Performed By: #### 1 9123-9, 63464-4, 27712-27 ####[facility] LABORATORYCLIA [id number] [place] [id number] [place] Potassium [Moles/Vol] 3.7 mmol/L Normal 3.7-5.1 [facility] Comment on above: Order Comment: Specimen Type: BLOOD SPEC IMENOrdering Facility: [facility] Address: [address] [place] [address] Performed By: #### 1 9123-9, 06896-0, 2777- ####[facility] LABORATORYCLIA [id number] [place] [address] [place] [facility] Sodium [Moles/Vol] 139 mmol/L Normal 136-144 [facility] Comment on above: Order Comment: Specimen Type: BLOOD SPEC IMENOrdering Facility: [facility] Address: [address] [place] [address] Performed By: #### 1 9123-9, 93256-9, 2777- ####[facility] LABORATORYCLIA [id number] [place] [address] [place] Urea nitrogen [Mass/Vol] 3 mg/dL Low 7-21 [facility] Comment on above: Order Comment: Specimen Type: BLOOD SPEC IMENOrdering Facility: [facility] Address: [address] [place] [address] Performed By: #### 1 9123-9, 16606-5, 2777- ####[facility] LABORATORYCLIA [id number] [place] [id number] [facility] [place] CASE MANAGEMon 08-07-2023 CASE MANAGEM HNO ID: [id number] Author: ARTUR DIAMOND RN Service: ? Author Type: Registered Nurse Type: Care Mgt Progress Note Filed: 08/07/2023 09:33 Note Text: CARE MANAGEMENT WEEKEND PLANNING NOTE POSSIBLE DISCHARGE Date/Time: TBD Disposition: home w/ family support Transport: Car per pt arrangement Other Concerns: S/p Biliopancreatic diversion w/ duodenal switch. Await return of bowel function. On Phase 1 diet. Anticipate no skilled needs at MD. Weekend Clock [place] Pager #: Peyman Pizano [phone] SIGNATURE: Artur Diamond RN PATIENT NAME: Susi Ortiz DATE: August 07, 2023 TIME: 9:29 AM PAGER/CONTACT #: [phone] Normal [facility] CBC W Auto Differential pane l (Bld)on 08-07-2023 Basophils (Bld) [#/Vol] 0.49 10*3/uL High <0.11 [facility] Comment on above: Order Comment: Specimen Type: BLOOD SPEC IMENOrdering Facility: [facility] Address: [address] [place] [address] Performed By: #### 5 7021-8 ####[facility] LABORATORYCLIA [id number] [place] [address] [place] Basophils/100 WBC (Bld) 3.0 % Normal [facility] Comment on above: Order Comment: Specimen Type: BLOOD SPEC IMENOrdering Facility: [facility] Address: [address] [place] [address] Performed By: #### 5 7021-8 ####[facility] LABORATORYCLIA [id number] Differential cell count method Nom (Bld) Manual Normal [facility] Comment on above: Order Comment: Specimen Type: BLOOD SPEC IMENOrdering Facility: [facility] Address: [address] [place] [address] Performed By: #### 5 7021-8 ####[facility] LABORATORYCLIA [id number] [place] [address] [place] Eosinophils (Bld) [#/Vol] 0.00 10*3/uL Normal <0.46 [facility] Comment on above: Order Comment: Specimen Type: BLOOD SPEC IMENOrdering Facility: [facility] Address: [address] [place] [address] Performed By: #### 5 7021-8 ####[facility] LABORATORYCLIA [id number] [address] [place] Eosinophils/100 WBC (Bld) 0.0 % Normal [facility] Comment on above: Order Comment: Specimen Type: BLOOD SPEC IMENOrdering Facility: [facility] Address: [address] [place] [address] Performed By: #### 5 7021-8 ####[facility] LABORATORYCLIA [id number] [place] [address] [place] Erythrocyte distribution width (RBC) [Ratio] 14.2 % Normal 11.5-15.0 [facility] Comment on above: Order Comment: Specimen Type: BLOOD SPEC IMENOrdering Facility: [facility] Address: [address] [place] [address] Performed By: #### 5 7021-8 ####[facility] LABORATORYCLIA [id number] [place] [address] [place] Hematocrit (Bld) [Volume fraction] 37.7 % Normal 36.0-46.0 [facility] Comment on above: Order Comment: Specimen Type: BLOOD SPEC IMENOrdering Facility: [facility] Address: [address] [place] [address] Performed By: #### 5 7021-8 ####[facility] LABORATORYCLIA [id number] [place] [address] [place] Hemoglobin (Bld) [Mass/Vol] 11.8 g/dL Normal 11.5-15.5 [facility] Comment on above: Order Comment: Specimen Type: BLOOD SPEC IMENOrdering Facility: [facility] Address: [address] [place] [address] Performed By: #### 5 7021-8 ####[facility] LABORATORYCLIA [id number] [place] [address] [place] Lymphocytes (Bld) [#/Vol] 4.43 10*3/uL High 1.00-4.00 [facility] Comment on above: Order Comment: Specimen Type: BLOOD SPEC IMENOrdering Facility: [facility] Address: [address] [place] [address] Performed By: #### 5 7021-8 ####[facility] LABORATORYCLIA [id number] [place] [id number] [place] Lymphocytes/100 WBC (Bld) 27.0 % Normal [facility] Comment on above: Order Comment: Specimen Type: BLOOD SPEC IMENOrdering Facility: [facility] Address: [address] [place] [address] Performed By: #### 5 7021-8 ####[facility] LABORATORYCLIA [id number] [address] OF [facility] MCH (RBC) [Entitic mass] 29.4 pg Normal 26.0-34.0 [facility] Comment on above: Order Comment: Specimen Type: BLOOD SPEC IMENOrdering Facility: [facility] Address: [address] [place] [address] Performed By: #### 5 7021-8 ####[facility] LABORATORYCLIA [id number] [place] [id number] [place] MCHC (RBC) [Mass/Vol] 31.3 g/dL Normal 30.5-36.0 [facility] Comment on above: Order Comment: Specimen Type: BLOOD SPEC IMENOrdering Facility: [facility] Address: [address] [place] [address] Performed By: #### 5 7021-8 ####[facility] LABORATORYCLIA [id number] [address] [place] MCV (RBC) [Entitic vol] 94.0 fL Normal 80.0-100.0 [facility] Comment on above: Order Comment: Specimen Type: BLOOD SPEC IMENOrdering Facility: [facility] Address: [address] [place] [address] Performed By: #### 5 7021-8 ####[facility] LABORATORYCLIA [id number] [place] [address] [place] Monocytes (Bld) [#/Vol] 1.48 10*3/uL High <0.87 [facility] Comment on above: Order Comment: Specimen Type: BLOOD SPEC IMENOrdering Facility: [facility] Address: [address] [place] [address] Performed By: #### 5 7021-8 ####[facility] LABORATORYCLIA [id number] [address] [place] Monocytes/100 WBC (Bld) 9.0 % Normal [facility] Comment on above: Order Comment: Specimen Type: BLOOD SPEC IMENOrdering Facility: [facility] Address: [address] [place] [address] Performed By: #### 5 7021-8 ####[facility] LABORATORYCLIA [id number] [place] [id number] [place] Neutrophils (Bld) [#/Vol] 10.00 10*3/uL High 1.45-7.50 [facility] Comment on above: Order Comment: Specimen Type: BLOOD SPEC IMENOrdering Facility: [facility] Address: [address] [place] [address] Performed By: #### 5 7021-8 ####[facility] LABORATORYCLIA [id number] [place] [id number] [place] Neutrophils/100 WBC (Bld) 61.0 % Normal [facility] Comment on above: Order Comment: Specimen Type: BLOOD SPEC IMENOrdering Facility: [facility] Address: [address] [place] [address] Performed By: #### 5 7021-8 ####[facility] LABORATORYCLIA [id number] [place] [id number] [place] Nucleated RBC (Bld) [#/Vol] 10*3/uL Normal <0.01 [facility] Comment on above: Order Comment: Specimen Type: BLOOD SPEC IMENOrdering Facility: [facility] Address: [address] [place] [address] Performed By: #### 5 7021-8 ####[facility] LABORATORYCLIA [id number] [place] [address] [place] Nucleated RBC/100 WBC (Bld) [Ratio] 0.0 /100 WBC Normal [facility] Comment on above: Order Comment: Specimen Type: BLOOD SPEC IMENOrdering Facility: [facility] Address: [address] [place] [address] Performed By: #### 5 7021-8 ####[facility] LABORATORYCLIA [id number] [place] [id number] [place] Platelet mean volume (Bld) [Entitic vol] 9.3 fL Normal 9.0-12.7 [facility] Comment on above: Order Comment: Specimen Type: BLOOD SPEC IMENOrdering Facility: [facility] Address: [address] [place] [address] Performed By: #### 5 7021-8 ####[facility]ORATORYCLIA [id number] [place] [id number] [place] Platelets (Bld) [#/Vol] 409 10*3/uL High 150-400 [facility] Comment on above: Order Comment: Specimen Type: BLOOD SPEC IMENOrdering Facility: [facility] Address: [address] [place] [address] Performed By: #### 5 7021-8 ####[facility]ORATORYCLIA [id number] [place] [id number] [place] Platelets Estimate (Bld) [#/Vol] Increased Normal [facility] Comment on above: Order Comment: Specimen Type: BLOOD SPEC IMENOrdering Facility: [facility] Address: [address] [place] [address] Performed By: #### 5 7021-8 ####[facility] LABORATORYCLIA [id number] [place] [id number] [place] RBC (Bld) [#/Vol] 4.01 10*6/uL Normal 3.90-5.20 [facility] Comment on above: Order Comment: Specimen Type: BLOOD SPEC IMENOrdering Facility: [facility] Address: [address] [place] [address] Performed By: #### 5 7021-8 ####[facility] LABORATORYCLIA [id number] [place] [id number] [facility] [place] RED CELL MORPH Reviewed: unremarkable Normal [facility] Comment on above: Order Comment: Specimen Type: BLOOD SPEC IMENOrdering Facility: [facility] Address: [address] [place] [address] Performed By: #### 5 7021-8 ####[facility] LABORATORYCLIA [id number] [place] [id number] [place] WBC (Bld) [#/Vol] 16.39 10*3/uL High 3.70-11.00 [facility] Comment on above: Order Comment: Specimen Type: BLOOD SPEC IMENOrdering Facility: [facility] Address: [address] [place] [address] Performed By: #### 5 7021-8 ####[facility] [id number] [place] [id number] [place] CONSULT PROGon 08-07-2023 CONSULT PROG HNO ID: [id number] Author: BUCKY FLORES APRN.PRE SALES TECHNICAL CONSULTANT Service: Pain Management Author Type: Nurse Practitioner Type: Consult Progress Note Filed: 08/07/2023 12:35 Note Text: APMS - EPIDURAL PROGRESS NOTE SERVICE DATE: 08/05/2023 SERVICE TIME: 10:57 AM PRIMARY SERVICE: General Surgery ASSESSMENT : Susi Ortiz is a 38 year old female with a hx of morbid obesity, TONEY on CPAP, thrombocytosis, bipolar disorder, GERD and migraines. She is now POD# 3 s/p GASTRECTOMY, GASTRIC RESTRICTIVE PARTIAL TO LIMIT ABSORPTION open biliopancreatic diversion with duodenal switch who is recovering as expected postoperatively T7-8 Epidural placed to aid in post op pain control. This morning, Ms. Ortiz is up to the chair. She reports improved pain this morning, still increased pain with movement. Epidural site without signs or symptoms of infection, no erythema, tenderness, drainage, or warmth. Levels appreciated around T6 - T 12 NGT removed yesterday, she is tolerating bariatric phase 1 with no c/o N/V. PLAN/Recs: Continue Bupi 0.0625%/Fent epidural analgesia at 8/4/15/ to promote comfort, mobility, and pulmonary toilet (plan for removal on Thursday pending post-op course) Continue Acetaminophen 1000 mg PO Q 6 h Continue home meds (as order per primary team) Continue Fentanyl 25 mcg IV Q 4 h for BTP (none utilized) Continue lidocaine patch QHS Continue Robaxin 500 mg IV TID for muscle spasms with holding parameters Bowel regimen per primary team The plan was discussed in detail with patient +/- family, bedside RN, APMS staff and primary service, who expressed agreement, understanding and comfort with the plan. Thank you for including us in her care. Please call us with any questions or concerns. APMS will continue to follow. SUBJECTIVE Interval HPI: Susi Ortiz is a 38 year old female who is POD# 3 s/p GASTRECTOMY, GASTRIC RESTRICTIVE PARTIAL TO LIMIT ABSORPTION open biliopancreatic diversion with duodenal switch who is recovering as expected postoperatively T7-8 Epidural placed to aid in post op pain control. Pain at surgical site? Yes, above incision Condition of surgical site: c/d/i Other locations of pain? Yes. Location: mild CHRISTIAN (baseline) Pain score at rest: 7 Pain score with movement (cough, deep breathe, ambulation, etc): 8 Able to cough/deep breathe adequately?:Yes Has patient been out of bed in a chair? Yes Has patient been ambulating?: Yes Is the patient tolerating Physical Therapy?: yes Character: aching and tight band Duration: intermittent Radiation: No Relieved: at times - Epidural bolus Is patient satisfied with pain control: Yes Overnight Events: None Overnight Pain Interventions: no Diet: bariatric phase 1 OBJECTIVE PERTINENT ROS: ALLERGIES Allergen Reactions Adhes. Gsfo-Zmxy-Fh* Rash Adhesive Tape-Silic* Rash Augmentin [Amoxicil* Diarrhea Keflex [Cephalexin] Rash, Itching Penicillins Hives Ultram [Tramadol Hc* Itching Information retrieved from Allergy section. Is the patient intubated and sedated? No. Numbness?: No Weakness?: No Nausea?: No Vomitting?: No Pruritis?: No Back pain?: No Headache?: Not today Sedation?: No Confusion/Delirium?: No Other: none Epidural Location: Thoracic Epidural catheter placed: Day of surgery MEDICATIONS: Epidural Medications and SHANK CUTTER Settings Bupivacaine 0.0625% + Fentanyl 2 mcg/mL Basal rate: 8 mL/hr. Patient Demand Bolus: 4 mL. Lockout interval: 15 minutes. Patient received 2/4 doses in the last 4 hours. Additional medication(s) given: See below Anticoagulation therapy: Heparin 5000 units TID Last Dose given: 08/07 518 Current Facility-Administered Medications Medication Dose Route Frequency NaCl 0.9% iv flush bag 20 mL INTRAVENOUS PRN bupivacaine 0.0625%-fentaNYL (PF) 2 mcg/mL epidural in NaCl 0.9% 250 mL EPIDURAL CONTINUOUS busPIRone 15 mg tab(s) (BUSPAR) 15 mg ORAL BID lamoTRIgine 100 mg tab(s) (LaMICtal) 100 mg ORAL DAILY OXcarbazepine 300 mg tab(s) (TRILEPTAL) 300 mg ORAL AT BEDTIME hydrOXYzine pamoate 50 mg cap(s) (VISTARIL) 50 mg ORAL AT BEDTIME PRN ARIPiprazole 10 mg tab(s) (ABILIFY) 10 mg ORAL AT BEDTIME montelukast 10 mg tab(s) (SINGULAIR) 10 mg ORAL AT BEDTIME lidocaine 4 % 1 Patch (SALONPAS) 1 Patch TRANSDERMAL DAILY AT 9 PM And lidocaine patch - REMOVE OTHER DAILY And lidocaine - VERIFY PATCH OTHER q 8 H DULoxetine 60 mg cap(s) (CYMBALTA) 60 mg ORAL DAILY phenol 1 [place] (CHLORASEPTIC) 1 [place] MUCOUS MEMBRANE (TOPICAL MOUTH AND THROAT) q 2 H PRN cetirizine 10 mg tab(s) (ZYRTEC) 10 mg ORAL DAILY acetaminophen 1,000 mg tab(s) (TYLENOL) 1,000 mg ORAL q 6 H methocarbamol 500 mg injection (ROBAXIN) 500 mg INTRAVENOUS q 8 H fentaNYL 50 mcg/mL 25 mcg injection (SUBLIMAZE) 25 mcg INTRAVENOUS q 4 H PRN diphenhydrAMINE 25 mg injection (BENADRYL) 25 mg INTRAVENOUS q 6 H PRN lactated ringers iv infusion 100 mL/hr INTRAVENOUS CON (more content not included)... Normal [facility] Magnesium SerPl-mCncon 08-07 Magnesium [Mass/Vol] 1.9 mg/dL Normal 1.7-2.3 [facility] Comment on above: Order Comment: Specimen Type: BLOOD SPEC IMENOrdering Facility: [facility] Address: [address] [place] [address] Performed By: #### 1 9123-9, 24306-6, 2777-1 ####[facility] LABORATORYCLIA [id number] [place] [id number] [place] Phosphate SerPl-mCncon 08-07 Phosphate [Mass/Vol] 2.3 mg/dL Low 2.7-4.8 [facility] Comment on above: Order Comment: Specimen Type: BLOOD SPEC IMENOrdering Facility: [facility] Address: [address] [place] [address] Performed By: #### 1 9123-9, 17866-7, 2777-1 ####[facility] LABORATORYCLIA [id number] [place] [id number] [place] Basic metabolic 2000 panelon 08-06-2023 Anion gap [Moles/Vol] 12 mmol/L Normal 9-18 [facility] Comment on above: Order Comment: Specimen Type: BLOOD SPEC IMENOrdering Facility: [facility] Address: [address] [place] [address] Performed By: #### 2 4321-2, , 2776-06 ####[facility] LABORATORYCLIA [id number] [place] [id number] [place] Calcium [Mass/Vol] 8.0 mg/dL Low 8.5-10.2 [facility] Comment on above: Order Comment: Specimen Type: BLOOD SPEC IMENOrdering Facility: [facility] Address: [address] [place] [address] Performed By: #### 2 4321-2, , 2776-06 ####[facility] LABORATORYCLIA [id number] [place] [id number] [place] Chloride [Moles/Vol] 106 mmol/L High 97-105 [facility] Comment on above: Order Comment: Specimen Type: BLOOD SPEC IMENOrdering Facility: [facility] Address: [address] [place] [address] Performed By: #### 2 4321-2, , 2776-06 ####[facility] LABORATORYCLIA [id number] [place] [id number] [place] CO2 [Moles/Vol] 23 mmol/L Normal 22-30 [facility] Comment on above: Order Comment: Specimen Type: BLOOD SPEC IMENOrdering Facility: [facility] Address: [address] [place] [address] Performed By: #### 2 4321-2, , 2776-06 ####[facility] LABORATORYCLIA [id number] [place] [id number] [place] Creatinine [Mass/Vol] 0.69 mg/dL Normal 0.58-0.96 [facility] Comment on above: Order Comment: Specimen Type: BLOOD SPEC IMENOrdering Facility: [facility] Address: [address] [place] [address] Performed By: #### 2 4321-2, , 2776-06 ####[facility] LABORATORYCLIA [id number] [place] [id number] [place] Creatinine and Glomerular filtration rate.predicted panel (S/P/Bld) 114 mL/min/1.73m??? Normal >=60 [facility] Comment on above: Order Comment: Specimen Type: BLOOD SPEC IMENOrdering Facility: [facility] Address: [address] [place] [address] Result Comment: Janet mated Glomerular Filtration Rate (eGFR) is calculated using the 2020 CKD-EPI creatinine equation. This equation utilizes serum creatinine, sex, and age as parameters. The creatinine assay has traceable calibration to isotope dilution-mass spectrometry. Refer to KDIGO guidelines for clinical interpretation. In patients with unstable renal function, e.g. those with acute kidney injury, the eGFR may not accurately reflect actual GFR. Performed By: #### 2 4321-2, , 2776-06 ####[facility] LABORATORYCLIA [id number] [place] [id number] [place] Glucose [Mass/Vol] 83 mg/dL Normal 74-99 [facility] Comment on above: Order Comment: Specimen Type: BLOOD SPEC IMENOrdering Facility: [facility] Address: [address] [place] [address] Result Comment: The [place] [employer] (ADA) provides guidance for cutoff values for fasting glucose and random glucose. The ADA defines fasting as no caloric intake for at least 8 hours. Fasting plasma glucose results between 100 to 125 mg/dL indicate increased risk for diabetes (prediabetes). Fasting plasma glucose results greater than or equal to 126 mg/dL meet the criteria for diagnosis of diabetes. In the absence of unequivocal hyperglycemia, results should be confirmed by repeat testing. In a patient with classic symptoms of hyperglycemia or hyperglycemic crisis, random plasma glucose results greater than or equal to 200 mg/dL meet the criteria for diagnosis of diabetes. Reference: Standards of Medical Care in Diabetes 2016, [place] [employer]. Diabetes Care. 2016.39(Suppl 1). Performed By: #### 2 4321-2, , 2776-06 ####[facility] LABORATORYCLIA [id number] [place] [id number] [place] Potassium [Moles/Vol] 3.8 mmol/L Normal 3.7-5.1 [facility] Comment on above: Order Comment: Specimen Type: BLOOD SPEC IMENOrdering Facility: [facility] Address: [address] [place] [address] Performed By: #### 2 4321-2, , 2776-06 ####[facility] LABORATORYCLIA [id number] [place] [id number] [place] [place] Sodium [Moles/Vol] 141 mmol/L Normal 136-144 [facility] Comment on above: Order Comment: Specimen Type: BLOOD SPEC IMENOrdering Facility: [facility] Address: [address] [place] [address] Performed By: #### 2 4321-2, , 2776-06 ####[place] LABORATORYCLIA [id number] [place] [id number] [place] Urea nitrogen [Mass/Vol] 5 mg/dL Low 7-21 [facility] Comment on above: Order Comment: Specimen Type: BLOOD SPEC IMENOrdering Facility: [facility] Address: [address] [place] [address] Performed By: #### 2 4321-2, , 2776-06 ####[facility] LABORATORYCLIA [id number] [place] [id number] [place] CBC W Auto Differential pane l (Bld)on 08-06-2023 Basophils (Bld) [#/Vol] 0.37 10*3/uL High <0.11 [facility] Comment on above: Order Comment: Specimen Type: BLOOD SPEC IMENOrdering Facility: [facility] Address: [address] [place] [address] Performed By: #### 5 7021-8 ####[facility]ORATORYCLIA [id number] [place] [id number] [place] Basophils/100 WBC (Bld) 2.0 % Normal [facility] Comment on above: Order Comment: Specimen Type: BLOOD SPEC IMENOrdering Facility: [facility] Address: [address] [place] [address] Performed By: #### 5 7021-8 ####[facility] LABORATORYCLIA [id number] [place] [address] [place] Differential cell count method Nom (Bld) Manual Normal [facility] Comment on above: Order Comment: Specimen Type: BLOOD SPEC IMENOrdering Facility: [facility] Address: [address] [place] [address] Performed By: #### 5 7021-8 ####[facility] LABORATORYCLIA [id number] [place] [address] [place] Eosinophils (Bld) [#/Vol] 0.74 10*3/uL High <0.46 [facility] Comment on above: Order Comment: Specimen Type: BLOOD SPEC IMENOrdering Facility: [facility] Address: [address] [place] [address] Performed By: #### 5 7021-8 ####[facility] LABORATORYCLIA [id number] [place] [address] [place] Eosinophils/100 WBC (Bld) 4.0 % Normal [facility] Comment on above: Order Comment: Specimen Type: BLOOD SPEC IMENOrdering Facility: [facility] Address: [address] [place] [address] Performed By: #### 5 7021-8 ####[facility] LABORATORYCLIA [id number] [address] [place] Erythrocyte distribution width (RBC) [Ratio] 14.6 % Normal 11.5-15.0 [facility] Comment on above: Order Comment: Specimen Type: BLOOD SPEC IMENOrdering Facility: [facility] Address: [address] [place] [address] Performed By: #### 5 7021-8 ####[facility] LABORATORYCLIA [id number] [place] [address] [place] Hematocrit (Bld) [Volume fraction] 38.0 % Normal 36.0-46.0 [facility] Comment on above: Order Comment: Specimen Type: BLOOD SPEC IMENOrdering Facility: [facility] Address: [address] [place] [address] Performed By: #### 5 7021-8 ####[facility] LABORATORYCLIA [id number] [place] [id number] [place] [facility] Hemoglobin (Bld) [Mass/Vol] 11.7 g/dL Normal 11.5-15.5 [facility] Comment on above: Order Comment: Specimen Type: BLOOD SPEC IMENOrdering Facility: [facility] Address: [address] [place] [address] Performed By: #### 5 7021-8 ####[facility] LABORATORYCLIA [id number] [address] Lymphocytes (Bld) [#/Vol] 4.05 10*3/uL High 1.00-4.00 [facility] Comment on above: Order Comment: Specimen Type: BLOOD SPEC IMENOrdering Facility: [facility] Address: [address] [place] [address] Performed By: #### 5 7021-8 ####[facility] LABORATORYCLIA [id number] [place] [id number] [facility] Lymphocytes/100 WBC (Bld) 22.0 % Normal [facility] Comment on above: Order Comment: Specimen Type: BLOOD SPEC IMENOrdering Facility: [facility] Address: [address] [place] [address] Performed By: #### 5 7021-8 ####[facility] LABORATORYCLIA [id number] [place] [id number] [place] MCH (RBC) [Entitic mass] 29.5 pg Normal 26.0-34.0 [facility] Comment on above: Order Comment: Specimen Type: BLOOD SPEC IMENOrdering Facility: [facility] Address: [address] [place] [address] Performed By: #### 5 7021-8 ####[facility] LABORATORYCLIA [id number] [place] [id number] [place] MCHC (RBC) [Mass/Vol] 30.8 g/dL Normal 30.5-36.0 [facility] Comment on above: Order Comment: Specimen Type: BLOOD SPEC IMENOrdering Facility: [facility] Address: [address] [place] [address] Performed By: #### 5 7021-8 ####[facility] LABORATORYCLIA [id number] [place] [id number] [place] MCV (RBC) [Entitic vol] 96.0 fL Normal 80.0-100.0 [facility] Comment on above: Order Comment: Specimen Type: BLOOD SPEC IMENOrdering Facility: [facility] Address: [address] [place] [address] Performed By: #### 5 7021-8 ####[facility] LABORATORYCLIA [id number] [place] [address] [place] Monocytes (Bld) [#/Vol] 1.84 10*3/uL High <0.87 [facility] Comment on above: Order Comment: Specimen Type: BLOOD SPEC IMENOrdering Facility: [facility] Address: [address] [place] [address] Performed By: #### 5 7021-8 ####[facility] LABORATORYCLIA [id number] [place] [id number] [place] Monocytes/100 WBC (Bld) 10.0 % Normal [facility] Comment on above: Order Comment: Specimen Type: BLOOD SPEC IMENOrdering Facility: [facility] Address: [address] [place] [address] Performed By: #### 5 7021-8 ####[facility] LABORATORYCLIA [id number] [place] [id number] [place] Neutrophils (Bld) [#/Vol] 11.42 10*3/uL High 1.45-7.50 [facility] Comment on above: Order Comment: Specimen Type: BLOOD SPEC IMENOrdering Facility: [facility] Address: [address] [place] [address] Performed By: #### 5 7021-8 ####[facility] LABORATORYCLIA [id number] [place] [id number] [place] Neutrophils/100 WBC (Bld) 62.0 % Normal [facility] Comment on above: Order Comment: Specimen Type: BLOOD SPEC IMENOrdering Facility: [facility] Address: [address] [place] [address] Performed By: #### 5 7021-8 ####[facility] LABORATORYCLIA [id number] [place] [id number] [place] Nucleated RBC (Bld) [#/Vol] 10*3/uL Normal <0.01 [facility] Comment on above: Order Comment: Specimen Type: BLOOD SPEC IMENOrdering Facility: [facility] Address: [address] [place] [address] Performed By: #### 5 7021-8 ####[facility] LABORATORYCLIA [id number] [place] [id number] [place] Nucleated RBC/100 WBC (Bld) [Ratio] 0.0 /100 WBC Normal [facility] Comment on above: Order Comment: Specimen Type: BLOOD SPEC IMENOrdering Facility: [facility] Address: [address] [place] [address] Performed By: #### 5 7021-8 ####[facility] LABORATORYCLIA [id number] [place] [id number] [place] Platelet mean volume (Bld) [Entitic vol] 9.4 fL Normal 9.0-12.7 [facility] Comment on above: Order Comment: Specimen Type: BLOOD SPEC IMENOrdering Facility: [facility] Address: [address] [place] [address] Performed By: #### 5 7021-8 ####[facility] LABORATORYCLIA [id number] [place] [id number] [place] Platelets (Bld) [#/Vol] 415 10*3/uL High 150-400 [facility] Comment on above: Order Comment: Specimen Type: BLOOD SPEC IMENOrdering Facility: [facility] Address: [address] [place] [address] Performed By: #### 5 7021-8 ####[facility] [facility]ORATORYCLIA [id number] [place] [id number] [facility] Platelets Estimate (Bld) [#/Vol] Increased Normal [facility] Comment on above: Order Comment: Specimen Type: BLOOD SPEC IMENOrdering Facility: [facility] Address: [address] [place] [address] Performed By: #### 5 7021-8 ####[facility]ORATORYCLIA [id number] [place] [id number] [facility] RBC (Bld) [#/Vol] 3.96 10*6/uL Normal 3.90-5.20 [facility] Comment on above: Order Comment: Specimen Type: BLOOD SPEC IMENOrdering Facility: [facility] Address: [address] [place] [address] Performed By: #### 5 7021-8 ####[facility] [facility]ORATORYCLIA [id number] [address] RED CELL MORPH Reviewed: unremarkable Normal [facility] Comment on above: Order Comment: Specimen Type: BLOOD SPEC IMENOrdering Facility: [facility] Address: [address] [place] [address] Performed By: #### 5 7021-8 ####[facility]ORATORYCLIA [id number] [place] [id number] [facility] WBC (Bld) [#/Vol] 18.42 10*3/uL High 3.70-11.00 [facility] Comment on above: Order Comment: Specimen Type: BLOOD SPEC IMENOrdering Facility: [facility] Address: [address] [place] [address] Performed By: #### 5 7021-8 ####[facility]ORATORYCLIA [id number] [place] [id number] [facility] CONSULT PROGon 08-06-2023 CONSULT PROG HNO ID: [id number] Author: BUCKY FLORES APRN.PRE SALES TECHNICAL CONSULTANT Service: Pain Management Author Type: Nurse Practitioner Type: Consult Progress Note Filed: 08/06/2023 14:54 Note Text: APMS - EPIDURAL PROGRESS NOTE SERVICE DATE: 08/05/2023 SERVICE TIME: 10:58 AM PRIMARY SERVICE: General Surgery ASSESSMENT : Susi Ortiz is a 38 year old female with a hx of morbid obesity, TONEY on CPAP, thrombocytosis, bipolar disorder, GERD and migraines. She is now POD# 2 s/p GASTRECTOMY, GASTRIC RESTRICTIVE PARTIAL TO LIMIT ABSORPTION open biliopancreatic diversion with duodenal switch who is recovering as expected postoperatively T7-8 Epidural placed to aid in post op pain control. This morning, Ms. Ortiz is resting in bed, she continues to report upper abdominal tightness and soreness. Epidural site without signs or symptoms of infection, no erythema, tenderness, drainage, or warmth. Levels appreciated around T6 - T 12 She is NPO with NGT denies N/V. +flatus PLAN/Recs: Continue Bupi 0.0625%/Fent epidural analgesia at 8/4/15/4 to promote comfort, mobility, and pulmonary toilet. Continue Acetaminophen 1000 mg PO Q 6 h Continue home meds (as order per primary team) Continue Fentanyl 25 mcg IV Q 4 h for BTP Continue lidocaine patch QHS Continue Robaxin 500 mg IV TID for muscle spasms with holding parameters Bowel regimen per primary team The plan was discussed in detail with patient +/- family, bedside RN, APMS staff and primary service, who expressed agreement, understanding and comfort with the plan. Thank you for including us in her care. Please call us with any questions or concerns. APMS will continue to follow. SUBJECTIVE Interval HPI: Susi Ortiz is a 38 year old female who is POD# 2 s/p GASTRECTOMY, GASTRIC RESTRICTIVE PARTIAL TO LIMIT ABSORPTION open biliopancreatic diversion with duodenal switch who is recovering as expected postoperatively T7-8 Epidural placed to aid in post op pain control. Pain at surgical site? Yes, above incision Condition of surgical site: c/d/i Other locations of pain? Yes. Location: mild CHRISTIAN (baseline) Pain score at rest: 8 Pain score with movement (cough, deep breathe, ambulation, etc): 8 Able to cough/deep breathe adequately?:Yes Has patient been out of bed in a chair? Yes Has patient been ambulating?: Yes Is the patient tolerating Physical Therapy?: yes Character: aching and tight band Duration: intermittent Radiation: No Relieved: at times - Epidural bolus Is patient satisfied with pain control: Yes Overnight Events: None Overnight Pain Interventions: no Diet: NPO w NGT OBJECTIVE PERTINENT ROS: ALLERGIES Allergen Reactions Adhes. Uvno-Luvt-Nn* Rash Adhesive Tape-Silic* Rash Augmentin [Amoxicil* Diarrhea Keflex [Cephalexin] Rash, Itching Penicillins Hives Ultram [Tramadol Hc* Itching Information retrieved from Allergy section. Is the patient intubated and sedated? No. Numbness?: No Weakness?: No Nausea?: No Vomitting?: No Pruritis?: No Back pain?: No Headache?: Yes (states baseline) Sedation?: No Confusion/Delirium?: No Other: none Epidural Location: Thoracic Epidural catheter placed: Day of surgery MEDICATIONS: Epidural Medications and SHANK CUTTER Settings Bupivacaine 0.0625% + Fentanyl 2 mcg/mL Basal rate: 8 mL/hr. Patient Demand Bolus: 4 mL. Lockout interval: 15 minutes. Patient received doses in the last 4 hours. Additional medication(s) given: See below Anticoagulation therapy: Lovenox 40mg PM dose Last Dose given: 08/05 at 2243 Current Facility-Administered Medications Medication Dose Route Frequency NaCl 0.9% iv flush bag 20 mL INTRAVENOUS PRN bupivacaine 0.0625%-fentaNYL (PF) 2 mcg/mL epidural in NaCl 0.9% 250 mL EPIDURAL CONTINUOUS busPIRone 15 mg tab(s) (BUSPAR) 15 mg ORAL BID lamoTRIgine 100 mg tab(s) (LaMICtal) 100 mg ORAL DAILY OXcarbazepine 300 mg tab(s) (TRILEPTAL) 300 mg ORAL AT BEDTIME hydrOXYzine pamoate 50 mg cap(s) (VISTARIL) 50 mg ORAL AT BEDTIME PRN ARIPiprazole 10 mg tab(s) (ABILIFY) 10 mg ORAL AT BEDTIME montelukast 10 mg tab(s) (SINGULAIR) 10 mg ORAL AT BEDTIME lidocaine 4 % 1 Patch (SALONPAS) 1 Patch TRANSDERMAL DAILY AT 9 PM And lidocaine patch - REMOVE OTHER DAILY And lidocaine - VERIFY PATCH OTHER q 8 H DULoxetine 60 mg cap(s) (CYMBALTA) 60 mg ORAL DAILY phenol 1 [place] (CHLORASEPTIC) 1 [place] MUCOUS MEMBRANE (TOPICAL MOUTH AND THROAT) q 2 H PRN cetirizine 10 mg tab(s) (ZYRTEC) 10 mg ORAL DAILY acetaminophen 1,000 mg tab(s) (TYLENOL) 1,000 mg ORAL q 6 H methocarbamol 500 mg injection (ROBAXIN) 500 mg INTRAVENOUS q 8 H fentaNYL 50 mcg/mL 25 mcg injection (SUBLIMAZE) 25 mcg INTRAVENOUS q 4 H PRN diphenhydrAMINE 25 mg injection (BENADRYL) 25 mg INTRAVENOUS q 6 H PRN lactated ringers iv infusion 100 mL/hr INTRAVENOUS CONTINUOUS pantoprazole 40 mg injection (PROTONIX) 40 mg INTRAVENOUS BID AC (0600/1600) senna-docusate 8.6-50 (more content not included)... Normal [facility] Magnesium [facility] 08-06 Magnesium [Mass/Vol] 2.0 mg/dL Normal 1.7-2.3 [facility] Comment on above: Order Comment: Specimen Type: BLOOD SPEC IMENOrdering Facility: [facility] Address: [address] [place] [address] Performed By: #### 2 4321-2, 86743-1, 2777- ####[facility] LABORATORYCLIA [id number] [address] OF [facility] NURSING PROGon 08-06-2023 NURSING PROG HNO ID: [id number] Author: BUCKY JOSHI RN Service: Nursing Author Type: Registered Nurse Type: Nursing Progress Note Filed: 08/06/2023 18:19 Note Text: Other: 1410: Pt ambulated POD with standby assist. HR 150-170s at this time, returned to normal at rest. Josee MARTINEZ on unit and aware. Normal [facility] Phosphate [Mass/Vol] 3.0 mg/dL Normal 2.7-4.8 [facility] Comment on above: Order Comment: Specimen Type: BLOOD SPEC IMENOrdering Facility: [facility] Address: [address] [place] [address] Performed By: #### 2 4321-2, 74967-5, 2777-1 ####[facility]ORATORYCLIA [id number] [place] [address] [place] Basic metabolic 2000 panelon 08-05-2023 Anion gap [Moles/Vol] 10 mmol/L Normal 9-18 [facility] Comment on above: Order Comment: Specimen Type: BLOOD SPEC IMENOrdering Facility: [facility] Address: [address] [place] [address] Performed By: #### 2 4321-2, HSTNT ####[facility] LABORATORYCLIA [id number] [place] [address] [place] Calcium [Mass/Vol] 7.8 mg/dL Low 8.5-10.2 [facility] Comment on above: Order Comment: Specimen Type: BLOOD SPEC IMENOrdering Facility: [facility] Address: [address] [place] [address] Performed By: #### 2 4321-2, HSTNT ####[facility] LABORATORYCLIA [id number] [place] [address] [place] Chloride [Moles/Vol] 105 mmol/L Normal 97-105 [facility] Comment on above: Order Comment: Specimen Type: BLOOD SPEC IMENOrdering Facility: [facility] Address: [address] [place] [address] Performed By: #### 2 4321-2, HSTNT ####[facility] LABORATORYCLIA [id number] [place] [address] [place] CO2 [Moles/Vol] 24 mmol/L Normal 22-30 [facility] Comment on above: Order Comment: Specimen Type: BLOOD SPEC IMENOrdering Facility: [facility] Address: [address] [place] [address] Performed By: #### 2 4321-2, HSTNT ####[facility] LABORATORYCLIA [id number] [place] [id number] [place] Creatinine [Mass/Vol] 0.77 mg/dL Normal 0.58-0.96 [facility] Comment on above: Order Comment: Specimen Type: BLOOD SPEC IMENOrdering Facility: [facility] Address: [address] [place] [address] Performed By: #### 2 4321-2, HSTNT ####[facility]ORATORYCLIA [id number] [place] [id number] [place] Creatinine and Glomerular filtration rate.predicted panel (S/P/Bld) 101 mL/min/1.73m??? Normal >=60 [facility] Comment on above: Order Comment: Specimen Type: BLOOD SPEC IMENOrdering Facility: [facility] Address: [address] [place] [address] Result Comment: Janet mated Glomerular Filtration Rate (eGFR) is calculated using the 2020 CKD-EPI creatinine equation. This equation utilizes serum creatinine, sex, and age as parameters. The creatinine assay has traceable calibration to isotope dilution-mass spectrometry. Refer to KDIGO guidelines for clinical interpretation. In patients with unstable renal function, e.g. those with acute kidney injury, the eGFR may not accurately reflect actual GFR. Performed By: #### 2 4321-2, HSTNT ####[facility] LABORATORYCLIA [id number] [place] [address] [place] Glucose [Mass/Vol] 93 mg/dL Normal 74-99 [facility] Comment on above: Order Comment: Specimen Type: BLOOD SPEC IMENOrdering Facility: [facility] Address: [address] [place] [address] Result Comment: The [place] Diabetes Association (ADA) provides guidance for cutoff values for fasting glucose and random glucose. The ADA defines fasting as no caloric intake for at least 8 hours. Fasting plasma glucose results between 100 to 125 mg/dL indicate increased risk for diabetes (prediabetes). Fasting plasma glucose results greater than or equal to 126 mg/dL meet the criteria for diagnosis of diabetes. In the absence of unequivocal hyperglycemia, results should be confirmed by repeat testing. In a patient with classic symptoms of hyperglycemia or hyperglycemic crisis, random plasma glucose results greater than or equal to 200 mg/dL meet the criteria for diagnosis of diabetes. Reference: Standards of Medical Care in Diabetes 2016, [place] [employer] Association. Diabetes Care. 2016.39(Suppl 1). Performed By: #### 2 4321-2, HSTNT ####[facility] LABORATORYCLIA [id number] [place] [id number] [place] Potassium [Moles/Vol] 3.4 mmol/L Low 3.7-5.1 [facility] Comment on above: Order Comment: Specimen Type: BLOOD SPEC IMENOrdering Facility: [facility] Address: [address] [place] [address] Performed By: #### 2 4321-2, HSTNT ####[facility]ORATORYCLIA [id number] [place] [id number] [place] Sodium [Moles/Vol] 139 mmol/L Normal 136-144 [facility] Comment on above: Order Comment: Specimen Type: BLOOD SPEC IMENOrdering Facility: [facility] Address: [address] [place] [address] Performed By: #### 2 4321-2, HSTNT ####[facility] LABORATORYCLIA [id number] [place] [address] [place] Urea nitrogen [Mass/Vol] 7 mg/dL Normal 7-21 [facility] Comment on above: Order Comment: Specimen Type: BLOOD SPEC IMENOrdering Facility: [facility] Address: [address] [place] [address] Performed By: #### 2 4321-2, HSTNT ####[facility] LABORATORYCLIA [id number] [place] [address] [place] CBC W Auto Differential pane l (Bld)on 08-05-2023 Basophils (Bld) [#/Vol] 0.15 10*3/uL High <0.11 [facility] Comment on above: Order Comment: Specimen Type: BLOOD SPEC IMENOrdering Facility: [facility] Address: [address] [place] [address] Performed By: #### 5 7021-8 ####[facility] LABORATORYCLIA [id number] [place] [id number] [place] Basophils/100 WBC (Bld) 1.0 % Normal [facility] Comment on above: Order Comment: Specimen Type: BLOOD SPEC IMENOrdering Facility: [facility] Address: [address] [place] [address] Performed By: #### 5 7021-8 ####[facility] LABORATORYCLIA [id number] [place] [id number] [place] Differential cell count method Nom (Bld) Manual Normal [facility] Comment on above: Order Comment: Specimen Type: BLOOD SPEC IMENOrdering Facility: [facility] Address: [address] [place] [address] Performed By: #### 5 7021-8 ####[facility] LABORATORYCLIA [id number] [place] [address] [place] Eosinophils (Bld) [#/Vol] 0.15 10*3/uL Normal <0.46 [facility] Comment on above: Order Comment: Specimen Type: BLOOD SPEC IMENOrdering Facility: [facility] Address: [address] [place] [address] Performed By: #### 5 7021-8 ####[facility] LABORATORYCLIA [id number] [place] [address] [place] Eosinophils/100 WBC (Bld) 1.0 % Normal [facility] Comment on above: Order Comment: Specimen Type: BLOOD SPEC IMENOrdering Facility: [facility] Address: [address] [place] [address] Performed By: #### 5 7021-8 ####[facility] LABORATORYCLIA [id number] [address] [place] Erythrocyte distribution width (RBC) [Ratio] 14.6 % Normal 11.5-15.0 [facility] Comment on above: Order Comment: Specimen Type: BLOOD SPEC IMENOrdering Facility: [facility] Address: [address] [place] [address] Performed By: #### 5 7021-8 ####[facility] LABORATORYCLIA [id number] [place] [id number] [facility] [place] Hematocrit (Bld) [Volume fraction] 38.5 % Normal 36.0-46.0 [facility] Comment on above: Order Comment: Specimen Type: BLOOD SPEC IMENOrdering Facility: [facility] Address: [address] [place] [address] Performed By: #### 5 7021-8 ####[facility] LABORATORYCLIA [id number] [place] [id number] [place] Hemoglobin (Bld) [Mass/Vol] 11.9 g/dL Normal 11.5-15.5 [facility] Comment on above: Order Comment: Specimen Type: BLOOD SPEC IMENOrdering Facility: [facility] Address: [address] [place] [address] Performed By: #### 5 7021-8 ####[facility] LABORATORYCLIA [id number] [place] [address] [place] Lymphocytes (Bld) [#/Vol] 2.79 10*3/uL Normal 1.00-4.00 [facility] Comment on above: Order Comment: Specimen Type: BLOOD SPEC IMENOrdering Facility: [facility] Address: [address] [place] [address] Performed By: #### 5 7021-8 ####[facility] LABORATORYCLIA [id number] [address] [place] Lymphocytes/100 WBC (Bld) 19.0 % Normal [facility] Comment on above: Order Comment: Specimen Type: BLOOD SPEC IMENOrdering Facility: [facility] Address: [address] [place] [address] Performed By: #### 5 7021-8 ####[facility] LABORATORYCLIA [id number] [place] [id number] [place] MCH (RBC) [Entitic mass] 29.2 pg Normal 26.0-34.0 [facility] Comment on above: Order Comment: Specimen Type: BLOOD SPEC IMENOrdering Facility: [facility] Address: [address] [place] [address] Performed By: #### 5 7021-8 ####[facility] LABORATORYCLIA [id number] [place] [id number] [facility] OF [place] MCHC (RBC) [Mass/Vol] 30.9 g/dL Normal 30.5-36.0 [facility] Comment on above: Order Comment: Specimen Type: BLOOD SPEC IMENOrdering Facility: [facility] Address: [address] [place] [address] Performed By: #### 5 7021-8 ####[facility] LABORATORYCLIA [id number] [place] [id number] [place] MCV (RBC) [Entitic vol] 94.6 fL Normal 80.0-100.0 [facility] Comment on above: Order Comment: Specimen Type: BLOOD SPEC IMENOrdering Facility: [facility] Address: [address] [place] [address] Performed By: #### 5 7021-8 ####[facility] LABORATORYCLIA [id number] [place] [id number] [place] Monocytes (Bld) [#/Vol] 0.59 10*3/uL Normal <0.87 [facility] Comment on above: Order Comment: Specimen Type: BLOOD SPEC IMENOrdering Facility: [facility] Address: [address] [place] [address] Performed By: #### 5 7021-8 ####[facility] LABORATORYCLIA [id number] [place] [address] [place] Monocytes/100 WBC (Bld) 4.0 % Normal [facility] Comment on above: Order Comment: Specimen Type: BLOOD SPEC IMENOrdering Facility: [facility] Address: [address] [place] [address] Performed By: #### 5 7021-8 ####[facility] LABORATORYCLIA [id number] [place] [id number] [place] Neutrophils (Bld) [#/Vol] 11.00 10*3/uL High 1.45-7.50 [facility] Comment on above: Order Comment: Specimen Type: BLOOD SPEC IMENOrdering Facility: [facility] Address: [address] [place] [address] Performed By: #### 5 7021-8 ####[facility] LABORATORYCLIA [id number] [place] [address] [place] Neutrophils/100 WBC (Bld) 75.0 % Normal [facility] Comment on above: Order Comment: Specimen Type: BLOOD SPEC IMENOrdering Facility: [facility] Address: [address] [place] [address] Performed By: #### 5 7021-8 ####[facility] LABORATORYCLIA [id number] [place] [id number] [place] Nucleated RBC (Bld) [#/Vol] 10*3/uL Normal <0.01 [facility] Comment on above: Order Comment: Specimen Type: BLOOD SPEC IMENOrdering Facility: [facility] Address: [address] [place] [address] Performed By: #### 5 7021-8 ####[facility] LABORATORYCLIA [id number] [place] [id number] [place] Nucleated RBC/100 WBC (Bld) [Ratio] 0.0 /100 WBC Normal [facility] Comment on above: Order Comment: Specimen Type: BLOOD SPEC IMENOrdering Facility: [facility] Address: [address] [place] [address] Performed By: #### 5 7021-8 ####[facility] LABORATORYCLIA [id number] [place] [id number] [place] Platelet mean volume (Bld) [Entitic vol] 9.2 fL Normal 9.0-12.7 [facility] Comment on above: Order Comment: Specimen Type: BLOOD SPEC IMENOrdering Facility: [facility] Address: [address] [place] [address] Performed By: #### 5 7021-8 ####[facility] LABORATORYCLIA [id number] [place] [id number] [place] Platelets (Bld) [#/Vol] 431 10*3/uL High 150-400 [facility] Comment on above: Order Comment: Specimen Type: BLOOD SPEC IMENOrdering Facility: [facility] Address: [address] [place] [address] Performed By: #### 5 7021-8 ####[facility] LABORATORYCLIA [id number] [place] [id number] [place] Platelets Estimate (Bld) [#/Vol] Increased Normal [facility] Comment on above: Order Comment: Specimen Type: BLOOD SPEC IMENOrdering Facility: [facility] Address: [address] [place] [address] Performed By: #### 5 7021-8 ####[facility] LABORATORYCLIA [id number] [place] [id number] [place] RBC (Bld) [#/Vol] 4.07 10*6/uL Normal 3.90-5.20 [facility] Comment on above: Order Comment: Specimen Type: BLOOD SPEC IMENOrdering Facility: [facility] Address: [address] [place] [address] Performed By: #### 5 7021-8 ####[facility] LABORATORYCLIA [id number] [place] [id number] [facility] Reviewed: unremarkable Normal [facility] Comment on above: Order Comment: Specimen Type: BLOOD SPEC IMENOrdering Facility: [facility] Address: [address] [place] [address] Performed By: #### 5 7021-8 ####[facility] LABORATORYCLIA [id number] [place] [id number] [place] WBC (Bld) [#/Vol] 14.67 10*3/uL High 3.70-11.00 [facility] Comment on above: Order Comment: Specimen Type: BLOOD SPEC IMENOrdering Facility: [facility] Address: [address] [place] [address] Performed By: #### 5 7021-8 ####[facility] LABORATORYCLIA [id number] [place] [address] [facility] CONSULT PROGon 08-05-2023 CONSULT PROG HNO ID: [id number] Author: BRIE ROJO APRN.PRE SALES TECHNICAL CONSULTANT Service: Pain Management Author Type: Nurse Practitioner Type: Consult Progress Note Filed: 08/05/2023 11:26 Note Text: APMS - EPIDURAL PROGRESS NOTE SERVICE DATE: 08/05/2023 SERVICE TIME: 8:58 AM PRIMARY SERVICE: General Surgery ASSESSMENT : Susi Ortiz is a 38 year old female with a hx of morbid obesity, TONEY on CPAP, thrombocytosis, bipolar disorder, GERD and migraines. She is now POD# 1 s/p GASTRECTOMY, GASTRIC RESTRICTIVE PARTIAL TO LIMIT ABSORPTION open biliopancreatic diversion with duodenal switch who is recovering as expected postoperatively T7-8 Epidural placed to aid in post op pain control. This morning, Ms. Ortiz is resting in bed, she reports upper abdominal tightness and soreness. Epidural site without signs or symptoms of infection, no erythema, tenderness, drainage, or warmth. Levels appreciated around T6 - T 12 Incision is c/d/I She is NPO, denies N/V. PLAN/Recs: Continue Bupi 0.0625%/Fent epidural analgesia at 8/4/15/4 to promote comfort, mobility, and pulmonary toilet. Continue Acetaminophen 1000 mg PO Q 6 h Continue home meds (as order per primary team) Added Fentanyl 25 mcg IV Q 4 h for BTP Continue lidocaine patch QHS Added Robaxin 500 mg IV TID for muscle spasms with holding parameters Bowel regimen per primary team The plan was discussed in detail with patient +/- family, bedside RN, APMS staff and primary service, who expressed agreement, understanding and comfort with the plan. Thank you for including us in her care. Please call us with any questions or concerns. APMS will continue to follow. SUBJECTIVE Interval HPI: Susi Ortiz is a 38 year old female who is POD# 1 s/p GASTRECTOMY, GASTRIC RESTRICTIVE PARTIAL TO LIMIT ABSORPTION open biliopancreatic diversion with duodenal switch who is recovering as expected postoperatively T7-8 Epidural placed to aid in post op pain control. Pain at surgical site? Yes, above incision Condition of surgical site: c/d/i Other locations of pain? Yes. Location: mild CHRISTIAN Pain score at rest: 8 Pain score with movement (cough, deep breathe, ambulation, etc): 8 Able to cough/deep breathe adequately?:Yes Has patient been out of bed in a chair? Not yet Has patient been ambulating?: not yet Is the patient tolerating Physical Therapy?: not yet Character: aching and tight band Duration: intermittent Radiation: No Relieved: at times - Epidural bolus Is patient satisfied with pain control: Yes Overnight Events: None Overnight Pain Interventions: no Diet: NPO OBJECTIVE PERTINENT ROS: ALLERGIES Allergen Reactions Adhes. Opgm-Hfih-Fu* Rash Adhesive Tape-Silic* Rash Augmentin [Amoxicil* Diarrhea Keflex [Cephalexin] Rash, Itching Penicillins Hives Ultram [Tramadol Hc* Itching Information retrieved from Allergy section. Is the patient intubated and sedated? No. Numbness?: No Weakness?: No Nausea?: No Vomitting?: No Pruritis?: No Back pain?: No Headache?: No Sedation?: No Confusion/Delirium?: No Other: none Epidural Location: Thoracic Epidural catheter placed: Day of surgery MEDICATIONS: Epidural Medications and SHANK CUTTER Settings Bupivacaine 0.0625% + Fentanyl 2 mcg/mL Basal rate: 8 mL/hr. Patient Demand Bolus: 4 mL. Lockout interval: 15 minutes. Patient received 15 doses in the last 4 hours. Additional medication(s) given: See below Anticoagulation therapy: Lovenox 40mg PM dose Last Dose given: starting tonight Current Facility-Administered Medications Medication Dose Route Frequency pantoprazole 40 mg injection (PROTONIX) 40 mg INTRAVENOUS DAILY (6 AM) NaCl 0.9% iv flush bag 20 mL INTRAVENOUS PRN bupivacaine 0.0625%-fentaNYL (PF) 2 mcg/mL epidural in NaCl 0.9% 250 mL EPIDURAL CONTINUOUS busPIRone 15 mg tab(s) (BUSPAR) 15 mg ORAL BID lamoTRIgine 100 mg tab(s) (LaMICtal) 100 mg ORAL DAILY OXcarbazepine 300 mg tab(s) (TRILEPTAL) 300 mg ORAL AT BEDTIME hydrOXYzine pamoate 50 mg cap(s) (VISTARIL) 50 mg ORAL AT BEDTIME PRN ARIPiprazole 10 mg tab(s) (ABILIFY) 10 mg ORAL AT BEDTIME montelukast 10 mg tab(s) (SINGULAIR) 10 mg ORAL AT BEDTIME lidocaine 4 % 1 Patch (SALONPAS) 1 Patch TRANSDERMAL DAILY AT 9 PM And lidocaine patch - REMOVE OTHER DAILY And lidocaine - VERIFY PATCH OTHER q 8 H DULoxetine 60 mg cap(s) (CYMBALTA) 60 mg ORAL DAILY phenol 1 [place] (CHLORASEPTIC) 1 [place] MUCOUS MEMBRANE (TOPICAL MOUTH AND THROAT) q 2 H PRN cetirizine 10 mg tab(s) (ZYRTEC) 10 mg ORAL DAILY NaCl 0.9% iv infusion 100 mL/hr INTRAVENOUS CONTINUOUS acetaminophen 1,000 mg tab(s) (TYLENOL) 1,000 mg ORAL q 6 H methocarbamol 500 mg injection (ROBAXIN) 500 mg INTRAVENOUS q 8 H fentaNYL 50 mcg/mL 25 mcg injection (SUBLIMAZE) 25 mcg INTRAVENOUS q 4 H PRN diphenhydrAMINE 25 mg injection (BENADRYL) 25 mg INTRAVENOUS q 6 H PRN enoxaparin 40 mg injection (LOVENOX) 40 mg SUBCUTANEOUS q (more content not included)... Normal [facility] HIGH SENSITIVITY TROPONIN To n 08-05-2023 Troponin T.cardiac High sensitivity method [Mass/Vol] <6 Normal <12 [facility] Comment on above: Order Comment: Specimen Type: BLOOD SPEC IMENOrdering Facility: [facility] Address: [address] [place], [place] [address], [place] [address] Result Comment: When assessing risk for acute coronary syndromes: In patients undergoing blood draw greater than or equal to 2 hours from symptom onset, with history of very low to moderate risk and non-ischemic ECG, an initial hs-Troponin T less than 12 ng/L AND a 1 hour delta hs-Troponin T less than 3 ng/L should be considered very low risk for 30 day MACE. Performed By: #### 2 4321-2, HSTNT ####[facility] LABORATORYCLIA [id number] [address] [facility] NURSING PROGon 08-05-2023 NURSING PROG HNO ID: [id number] Author: DIANA PATHAK, RN Service: Radiology Author Type: Registered Nurse Type: Nursing Progress Note Filed: 08/05/2023 11:42 Note Text: Nursing Progress Note Patient Name: Susi Ortiz Patient Location: [id number]/-[id number]-40 Daily Note: 1100: Called to floor for difficult IV access. #22g 2 inch IV started to right FA under US guidance. Flushes well with brisk blood return. This note was completed by: Diana Pathak [facility] [place] NURSING PROG HNO ID: [id number] Author: KIRA VANCE, SUSAN Service: ? Author Type: Registered Nurse Type: Nursing Progress Note Filed: 08/05/2023 11:49 Note Text: Nursing Progress Note: Pt AANDO x 3. Abdomen is soft and tender and distended. Abdominal incision right lateral transverse incision open to air with glue. SR on tele. Lungs diminished on RA. NGT remains in place and secured with light brown output, pt is taking in ice chips. Cates intact and secured and draining yellow/rupinder urine. Epidural intact and infusing per AUG. 802: Called vascular access for a new peripheral IV access, pt is US placement. Vascular access at bedside and placed peripheral IV. [facility] [place] PT EDon 08-05-2023 PT ED HNO ID: [id number] Author: TASNEEM GOOD RD Service: NST-Nutrition Support Team Author Type: Registered Dietitian Type: Patient Education Filed: 08/05/2023 12:22 Note Text: NUTRITION THERAPY PATIENT EDUCATION SERVICE DATE: 08/05/2023 SERVICE TIME: 12:21 PM TOPIC: Diet: Bariatric LEARNING ASSESSMENT Individuals Assessed: Patient Preferred Learning Method: Verbal Instruction and Written Instruction Barriers to Learning: None Evident LEARNING RESPONSE Instruction Provided to: Patient Patient / Family Response: Performs Independently and Verbalizes Understanding Method of Instruction: Written instruction - handouts Verbal instruction Material(s) Provided to Patient: Bariatric Surgery Post Operative Care and Education Materials Provided Nutrition Education CCHS: Post-Bariatric Surgery Nutrition Follow-Up Plan: Follow-up with Primary Care Referral (Recommendation): Nutrition - Outpatient and Primary Care Provider MNT Billing: $ Initial Assessment: 1-15 minutes SIGNATURE: Tasneem Good RD PATIENT NAME: Susi Borjahip DATE: August 05, 2023 TIME: 12:20 PM PAGER: [facility] [place] ANES PRE-OPon 08-04-2023 ANES PRE-OP HNO ID: [id number] Author: AMANDA ALCANTAR DO Service: Anesthesiology Author Type: Physician Type: Anesthesia Preprocedure Evaluation Filed: 08/04/2023 09:29 Note Text: ANESTHESIOLOGY DAY OF SURGERY NOTE : 1985 s/p gastric sleeve in 2017 with leak and re-op gastrotomy and stent extraction shortly after. Attempted laparoscopic procedure 03/2023 but was aborted. Now planned for OPEN biliopancreatic diversion with duodenal switch. Requested thoracic epidural for pain control ? Former smker History bariatric surgery TONEY, currently pending obtaining a cpap DDD hx lumbar-sacral back surgery gerd Bipolar Morbid obesity ANESTHESIA FINDINGS: Intubation History: No history of difficult intubation Final Airway Details 03/31/2023 Final airway type: endotracheal airway Final Endotracheal Airway: ETT Cuffed: yes Successful intubation technique: video laryngoscopy Devices used: Garcia and intubating stylet Endotracheal tube insertion site: oral Blade: Isela Blade size: #4 ETT size (mm): 8.0 Measured from: lips Measurement (cm): 22 Placement verified by: chest auscultation and capnometry Cormack-Lehane Classification: grade I - full view of glottis Number of attempts at approach: 1 Airway not difficult Significant Anesthesia Considerations: None Procedure Information Anesthesia Start Date/Time: 08/04/23 0833 Procedure: GASTRECTOMY, GASTRIC RESTRICTIVE PARTIAL (50 TO 100 CM COMMON CHANNEL) TO LIMIT ABSORPTION (Abdomen) - TAP block Location: [facility] OR06 / [facility] OR Surgeons: oJe Granda MD Estimated body mass index is 66.6 kg/m? as calculated from the following: Height as of 07/22/23: 162.6 cm (5' 4 ). Weight as of 07/22/23: 176 kg (388 lb 0.2 oz). Most recent hematocrit and potassium results: Hematocrit 45.8 07/13/2023 Potassium 4.3 07/13/2023 Relevant Problems ANESTHESIA (+) TONEY on CPAP CARDIO (+) Migraine GI (+) Gastroesophageal reflux disease NEURO-PSYCH (+) Migraine PULMONARY (+) TONEY on CPAP Other (+) Recurrent tonsillitis I - PHYSICAL EVALUATION AIRWAY Patient intubated: No. Tracheostomy tube not present Mallampati: IV. TM distance: >3 FB. Neck ROM: full ROM without neurological symptoms. Mouth opening: adequate. Short neck: yes. Thick neck: yes Microretrognathia/Micronagthia/ Recessed Chin: Yes DENTAL Dental findings: edentulous and missing tooth/teeth. Additional exam findings: yes. ABDOMINAL Obese: obesity present. BACK Previous back surgery: prior surgery to area. II - ANESTHESIA PLAN ASA Score: 4 Anesthetic Plan: general Airway type: ETT The patient is not a current smoker. (former) NPO Status: adequate Beta Jaylon Administration of chronic beta jaylon medication planned. Monitoring Plan Monitoring plan: invasive hemodynamic monitoring and standard ASA. Monitoring method: arterial Line Post Procedure Analgesic Plan Postoperative analgesic plan: multimodal analgesia, per surgical service and epidural. Informed Consent Anesthetic risks, benefits, alternatives, personnel and consent discussed: yes. Patient / Responsible Democrat agrees to proceed: yes Patient / Surrogate agrees to blood products: Yes Significant changes in the patient condition since the History and Physical, not otherwise documented in primary service progress note: no. Potential Anesthesia issues that may suggest increased risk of complications or contraindication to planned procedure: potential difficult IV access and potential difficult intubation. Discussed the possibility of lip / dental damage: yes Vitals Value Taken Time BP 113/92 08/04/23 0830 Pulse 87 08/04/23 0828 Resp 25 08/04/23 0816 Temp 36.5 ?C (97.7 ?F) 08/04/23 0640 SpO2 99 % 08/04/23 0829 Vitals shown include unfiled device data. Facility-Administered Medications as of 08/04/2023 Medication Dose Route Frequency - [COMPLETED] midazolam (PF) 1-2 mg injection (VERSED) 1-2 mg INTRAVENOUS ONCE - heparin 5,000 Units injection 5,000 Units SUBCUTANEOUS ONCE - lidocaine (PF) 10 mg/mL (1 %) 1-2 mg injection (XYLOCAINE) 0.1-0.2 mL INTRADERMAL PRN - lactated ringers iv infusion 5-30 mL/hr INTRAVENOUS CONTINUOUS - NaCl 0.9% iv flush bag 20 mL INTRAVENOUS PRN - vancomycin 1.5 g in NaCl 0.9% 250 mL (VANCOCIN) 1.5 g INTRAVENOUS Pre-Op Once - [COMPLETED] acetaminophen 1,000 mg tab(s) (TYLENOL) 1,000 mg ORAL Pre-Op Once - [COMPLETED] celecoxib 200 mg cap(s) (CeleBREX) 200 mg ORAL Pre-Op Once - [COMPLETED] methocarbamol 1,500 mg tab(s) (ROBAXIN) 1,500 mg ORAL Pre-Op Once - [COMPLETED] pantoprazole DR 40 mg tab(s) (PROTONIX) 40 mg ORAL Pre-Op Once - famotidine 20 mg injection (PEPCID) 20 mg INTRAVENOUS Pre-Op Once - metoclopramide HCl 10 mg injection (REGLAN) 10 mg INTRAVENOUS Pre-Op Once - [COMPLETED] midazolam (PF) 1-2 mg injection (VERSED) 1-2 mg INTRAVENOUS ONCE Outpatient Medications as of 08/04/2023 Medication Sig - montelukast (SINGULA (more content not included)... Normal [facility] BRIEF OP NOTon 08-04-2023 BRIEF OP NOT HNO ID: [id number] Author: JOE GRANDA MD Service: General Surgery Author Type: Physician Type: Brief Op Note Filed: 08/04/2023 15:27 Note Text: BRIEF OPERATIVE NOTE [facility] LOG ID: [id number] SURGERY/PROCEDURE DATE: 08/04/2023 INCISION/PROCEDURE START TIME: 9:39 AM INCISION CLOSE/PROCEDURE END TIME: 2:39 PM SURGEON(S) AND CHILD PROTECTION SPECIALIST(S): Surgeon(s) and Role: * Joe Granda MD - Primary * Som Hampton MD - Fellow * Cony Soler MD No Additional Staff PROCEDURES AND ANESTHESIA: Procedure(s) and Anesthesia Type: * GASTRECTOMY, GASTRIC RESTRICTIVE PARTIAL (50 TO 100 CM COMMON CHANNEL) TO LIMIT ABSORPTION open biliopancreatic diversion with duodenal switch - General Revision: No If CPT is a Band, Brand: N/A Modifiers: Open dudeno-ilial switch with biliopancreatic diversion . TAP Block Performed: No DIAGNOSIS CODE(S): Pre-Op Diagnosis Codes: * BMI 60.0-69.9, adult (HCC) [Z68.44] * Preoperative examination [Z01.818] Post-Op Diagnosis Codes: * Same as preoperative diagnosis ANESTHESIA: Anesthesia Start Time: * No date or time recorded * Anesthesia End Time: * No date or time recorded * Was Temperature Maintained Above 36.5C for the Entire Case: Yes SURGICAL APPROACH: Open DVT PREVENTION: Intermittent venous compression device and Anticoagulation INTAKE/OUTPUT: FLUID REPLACEMENT AMOUNT: 3500 mL crystalloids and 500 cc albumin RBC Transfusion? No Estimated Blood Loss: 100 ml Urine Output: 100 mL DRAINS: No WOUND CLASSIFICATION: Clean Contaminated FINDINGS - LEAK TEST: Negative SPECIMENS: None INTRA-OPERATIVE ADVERSE EVENTS: NONE SIGNATURE: Som Hampton MD PATIENT NAME: Susi Naqvi [facility] DATE: August 04, 2023 TIME: 3:01 PM [id number] Joe Granda MD Normal [facility] Basic metabolic 2000 panelon 08-04-2023 Anion gap [Moles/Vol] 13 mmol/L Normal 9-18 [facility] Comment on above: Order Comment: Specimen Type: BLOOD SPEC IMENOrdering Facility: [facility] Address: [address] [place] [address] Performed By: #### 1 9123-9, 65634-8, 277- ####[facility] LABORATORYCLIA [id number] [place] [id number] [place] Calcium [Mass/Vol] 8.5 mg/dL Normal 8.5-10.2 [facility] Comment on above: Order Comment: Specimen Type: BLOOD SPEC IMENOrdering Facility: [facility] Address: [address] [place] [address] Performed By: #### 1 9123-9, 05454-4, 2776- ####[facility]ORATORYCLIA [id number] [place] [id number] [place] Chloride [Moles/Vol] 101 mmol/L Normal 97-105 [facility] Comment on above: Order Comment: Specimen Type: BLOOD SPEC IMENOrdering Facility: [facility] Address: [address] [place] [address] Performed By: #### 1 9123-9, 28721-0, 2776-06 ####[facility]ORATORYCLIA [id number] [place] [id number] [place] CO2 [Moles/Vol] 20 mmol/L Low 22-30 [facility] Comment on above: Order Comment: Specimen Type: BLOOD SPEC IMENOrdering Facility: [facility] Address: [address] [place] [address] Performed By: #### 1 9123-9, 99198-3, 277- ####[facility]ORATORYCLIA [id number] [place] [id number] [place] Creatinine [Mass/Vol] 0.69 mg/dL Normal 0.58-0.96 [facility] Comment on above: Order Comment: Specimen Type: BLOOD SPEC IMENOrdering Facility: [facility] Address: [address] [place] [address] Performed By: #### 1 9123-9, 92805-5, 2777-1 ####[facility]ORATORYCLIA [id number] [place] [id number] [place] Creatinine and Glomerular filtration rate.predicted panel (S/P/Bld) 114 mL/min/1.73m??? Normal >=60 [facility] Comment on above: Order Comment: Specimen Type: BLOOD SPEC IMENOrdering Facility: [facility] Address: [address] [place] [address] Result Comment: Janet mated Glomerular Filtration Rate (eGFR) is calculated using the 2020 CKD-EPI creatinine equation. This equation utilizes serum creatinine, sex, and age as parameters. The creatinine assay has traceable calibration to isotope dilution-mass spectrometry. Refer to KDIGO guidelines for clinical interpretation. In patients with unstable renal function, e.g. those with acute kidney injury, the eGFR may not accurately reflect actual GFR. Performed By: #### 1 9123-9, 05418-5, 2777-1 ####[facility]ORATORYCLIA [id number] [place] [id number] [place] Glucose [Mass/Vol] 137 mg/dL High 74-99 [facility] Comment on above: Order Comment: Specimen Type: BLOOD SPEC IMENOrdering Facility: [facility] Address: [address] [place] [address] Result Comment: The [place] Diabetes Association (ADA) provides guidance for cutoff values for fasting glucose and random glucose. The ADA defines fasting as no caloric intake for at least 8 hours. Fasting plasma glucose results between 100 to 125 mg/dL indicate increased risk for diabetes (prediabetes). Fasting plasma glucose results greater than or equal to 126 mg/dL meet the criteria for diagnosis of diabetes. In the absence of unequivocal hyperglycemia, results should be confirmed by repeat testing. In a patient with classic symptoms of hyperglycemia or hyperglycemic crisis, random plasma glucose results greater than or equal to 200 mg/dL meet the criteria for diagnosis of diabetes. Reference: Standards of Medical Care in Diabetes 2016, [place] [employer]. Diabetes Care. 2016.39(Suppl 1). Performed By: #### 1 9123-9, 73584-3, 2776- ####[facility] LABORATORYCLIA [id number] [place] [id number] [place] Potassium [Moles/Vol] 5.1 mmol/L Normal 3.7-5.1 [facility] Comment on above: Order Comment: Specimen Type: BLOOD SPEC IMENOrdering Facility: [facility] Address: [facility] [place] [address] Performed By: #### 1 9123-9, 70663-5, 2776- ####[facility]ORATORYCLIA [id number] [place] [id number] [place] Sodium [Moles/Vol] 134 mmol/L Low 136-144 [facility] Comment on above: Order Comment: Specimen Type: BLOOD SPEC IMENOrdering Facility: [facility] Address: [address] [place] [address] Performed By: #### 1 9123-9, 49580-4, 2776-06 ####[facility]ORATORYCLIA [id number] [place] [id number] [place] Urea nitrogen [Mass/Vol] 7 mg/dL Normal 7-21 [facility] Comment on above: Order Comment: Specimen Type: BLOOD SPEC IMENOrdering Facility: [facility] Address: [facility] [place] [address] Performed By: #### 1 9123-9, 58274-9, 2776-06 ####[facility]ORATORYCLIA [id number] [place] [id number] [place] CBC W Auto Differential pane l (Bld)on 08-04-2023 Basophils (Bld) [#/Vol] 0.06 10*3/uL Normal <0.11 [facility] Comment on above: Order Comment: Specimen Type: BLOOD SPEC IMENOrdering Facility: [facility] Address: [facility] [place] [address] Performed By: #### 5 7021-8 ####[facility]ORATORYCLIA [id number] [place] [address] [place] Basophils/100 WBC (Bld) 0.3 % Normal [facility] Comment on above: Order Comment: Specimen Type: BLOOD SPEC IMENOrdering Facility: [facility] Address: [address] [place] [address] Performed By: #### 5 7021-8 ####[facility] LABORATORYCLIA [id number] [place] [id number] [place] Differential cell count method Nom (Bld) Auto Normal [facility] Comment on above: Order Comment: Specimen Type: BLOOD SPEC IMENOrdering Facility: [facility] Address: [address] [place] [address] Performed By: #### 5 7021-8 ####[facility] LABORATORYCLIA [id number] [place] [address] [place] Eosinophils (Bld) [#/Vol] 0.07 10*3/uL Normal <0.46 [facility] Comment on above: Order Comment: Specimen Type: BLOOD SPEC IMENOrdering Facility: [facility] Address: [address] [place] [address] Performed By: #### 5 7021-8 ####[facility] LABORATORYCLIA [id number] [address] [place] Eosinophils/100 WBC (Bld) 0.4 % Normal [facility] Comment on above: Order Comment: Specimen Type: BLOOD SPEC IMENOrdering Facility: [facility] Address: [address] [place] [address] Performed By: #### 5 7021-8 ####[facility]ORATORYCLIA [id number] [place] [id number] [place] Erythrocyte distribution width (RBC) [Ratio] 14.2 % Normal 11.5-15.0 [facility] Comment on above: Order Comment: Specimen Type: BLOOD SPEC IMENOrdering Facility: [facility] Address: [address] [place] [address] Performed By: #### 5 7021-8 ####[facility] LABORATORYCLIA [id number] [place] [id number] [place] Hematocrit (Bld) [Volume fraction] 40.3 % Normal 36.0-46.0 [facility] Comment on above: Order Comment: Specimen Type: BLOOD SPEC IMENOrdering Facility: [facility] Address: [address] [place] [address] Performed By: #### 5 7021-8 ####[facility] LABORATORYCLIA [id number] [place] [id number] [place] Hemoglobin (Bld) [Mass/Vol] 13.0 g/dL Normal 11.5-15.5 [facility] Comment on above: Order Comment: Specimen Type: BLOOD SPEC IMENOrdering Facility: [facility] Address: [address] [place] [address] Performed By: #### 5 7021-8 ####[facility] LABORATORYCLIA [id number] [place] [address] [place] Immature granulocytes (Bld) [#/Vol] 0.05 10*3/uL Normal <0.10 [facility] Comment on above: Order Comment: Specimen Type: BLOOD SPEC IMENOrdering Facility: [facility] Address: [address] [place] [address] Performed By: #### 5 7021-8 ####[facility]ORATORYCLIA [id number] [place] [address] [place] Immature granulocytes/100 WBC (Bld) 0.3 % Normal [facility] Comment on above: Order Comment: Specimen Type: BLOOD SPEC IMENOrdering Facility: [facility] Address: [address] [place] [address] Performed By: #### 5 7021-8 ####[facility] LABORATORYCLIA [id number] [place] [id number] [place] Lymphocytes (Bld) [#/Vol] 1.82 10*3/uL Normal 1.00-4.00 [facility] Comment on above: Order Comment: Specimen Type: BLOOD SPEC IMENOrdering Facility: [facility] Address: [address] [place] [address] Performed By: #### 5 7021-8 ####[facility] LABORATORYCLIA [id number] [place] [address] [place] Lymphocytes/100 WBC (Bld) 9.7 % Normal [facility] Comment on above: Order Comment: Specimen Type: BLOOD SPEC IMENOrdering Facility: [facility] Address: [address] [place] [address] Performed By: #### 5 7021-8 ####[facility] LABORATORYCLIA [id number] [address] [place] [facility] MCH (RBC) [Entitic mass] 29.4 pg Normal 26.0-34.0 [facility] Comment on above: Order Comment: Specimen Type: BLOOD SPEC IMENOrdering Facility: [facility] Address: [address] [place] [address] Performed By: #### 5 7021-8 ####[facility] LABORATORYCLIA [id number] [address] [place] MCHC (RBC) [Mass/Vol] 32.3 g/dL Normal 30.5-36.0 [facility] Comment on above: Order Comment: Specimen Type: BLOOD SPEC IMENOrdering Facility: [facility] Address: [address] [place] [address] Performed By: #### 5 7021-8 ####[facility] LABORATORYCLIA [id number] [address] [place] MCV (RBC) [Entitic vol] 91.2 fL Normal 80.0-100.0 [facility] Comment on above: Order Comment: Specimen Type: BLOOD SPEC IMENOrdering Facility: [facility] Address: [address] [place] [address] Performed By: #### 5 7021-8 ####[facility] LABORATORYCLIA [id number] [address] [place] Monocytes (Bld) [#/Vol] 1.16 10*3/uL High <0.87 [facility] Comment on above: Order Comment: Specimen Type: BLOOD SPEC IMENOrdering Facility: [facility] Address: [address] [place] [address] Performed By: #### 5 7021-8 ####[facility] LABORATORYCLIA [id number] [place] [id number] [place] Monocytes/100 WBC (Bld) 6.2 % Normal [facility] Comment on above: Order Comment: Specimen Type: BLOOD SPEC IMENOrdering Facility: [facility] Address: [address] [place] [address] Performed By: #### 5 7021-8 ####[facility] LABORATORYCLIA [id number] [place] [id number] [place] Neutrophils (Bld) [#/Vol] 15.62 10*3/uL High 1.45-7.50 [facility] Comment on above: Order Comment: Specimen Type: BLOOD SPEC IMENOrdering Facility: [facility] Address: [address] [place] [address] Performed By: #### 5 7021-8 ####[facility] LABORATORYCLIA [id number] [place] [id number] [place] Neutrophils/100 WBC (Bld) 83.1 % Normal [facility] Comment on above: Order Comment: Specimen Type: BLOOD SPEC IMENOrdering Facility: [facility] Address: [address] [place] [address] Performed By: #### 5 7021-8 ####[facility] LABORATORYCLIA [id number] [place] [id number] [place] Nucleated RBC (Bld) [#/Vol] 10*3/uL Normal <0.01 [facility] Comment on above: Order Comment: Specimen Type: BLOOD SPEC IMENOrdering Facility: [facility] Address: [address] [place] [address] Performed By: #### 5 7021-8 ####[facility]ORATORYCLIA [id number] [place] [id number] [place] Nucleated RBC/100 WBC (Bld) [Ratio] 0.0 /100 WBC Normal [facility] Comment on above: Order Comment: Specimen Type: BLOOD SPEC IMENOrdering Facility: [facility] Address: [address] [place] [address] Performed By: #### 5 7021-8 ####[facility]ATORYCLIA [id number] [place] [id number] [place] Platelet mean volume (Bld) [Entitic vol] 9.2 fL Normal 9.0-12.7 [facility] Comment on above: Order Comment: Specimen Type: BLOOD SPEC IMENOrdering Facility: [facility] Address: [address] [place] [address] Performed By: #### 5 7021-8 ####[facility]ATORYCLIA [id number] [place] [id number] [place] Platelets (Bld) [#/Vol] 502 10*3/uL High 150-400 [facility] Comment on above: Order Comment: Specimen Type: BLOOD SPEC IMENOrdering Facility: [facility] Address: [address] [place] [address] Performed By: #### 5 7021-8 ####[facility]ORATORYCLIA [id number] [place] [id number] [place] RBC (Bld) [#/Vol] 4.42 10*6/uL Normal 3.90-5.20 [facility] Comment on above: Order Comment: Specimen Type: BLOOD SPEC IMENOrdering Facility: [facility] Address: [address] [place] [address] Performed By: #### 5 7021-8 ####[facility]ORATORYCLIA [id number] [place] [id number] [place] WBC (Bld) [#/Vol] 18.78 10*3/uL High 3.70-11.00 [facility] Comment on above: Order Comment: Specimen Type: BLOOD SPEC IMENOrdering Facility: [facility] Address: [address] [place] [address] Performed By: #### 5 7021-8 ####[facility]ORATORYCLIA [id number] [place] [id number] [place] HIGH SENSITIVITY TROPONIN To n 08-04-2023 Troponin T.cardiac High sensitivity method [Mass/Vol] 7 ng/L Normal <12 [facility] Comment on above: Order Comment: Specimen Type: BLOOD SPEC IMENOrdering Facility: [facility] Address: [address] [place] [address] Result Comment: When assessing risk for acute coronary syndromes: In patients undergoing blood draw greater than or equal to 2 hours from symptom onset, with history of very low to moderate risk and non-ischemic ECG, an initial hs-Troponin T less than 12 ng/L AND a 1 hour delta hs-Troponin T less than 3 ng/L should be considered very low risk for 30 day MACE. Performed By: #### H STNT ####[facility]ORATORYCLIA [id number] [place] [address] [place] Magnesium SerPl-mCncon 08-04 Magnesium [Mass/Vol] 1.8 mg/dL Normal 1.7-2.3 [facility] Comment on above: Order Comment: Specimen Type: BLOOD SPEC IMENOrdering Facility: [facility] Address: [address] [place] [address] Performed By: #### 1 9123-9, 27883-6, 2777-1 ####[facility]ORATORYCLIA [id number] [place] [id number] [place] NURSING PROGon 08-04-2023 NURSING PROG HNO ID: [id number] Author: KIRA VANCE RN Service: ? Author Type: Registered Nurse Type: Nursing Progress Note Filed: 08/04/2023 17:06 Note Text: Transfer Note: PATIENT NAME: Susi Ortiz Patient Location: [place] [address] [address] Room: [place] [address] Patient transferred into room/unit PK328 in stable condition. Actions taken: No futher actions taken at this time. Will continue to monitor and check with patient. 1705: Sent text page to surgical team, pt has epidural and need order for tele and pulse ox. Normal [facility] NURSING PROG HNO ID: [id number] Author: KINGA HERNANDEZ RN Service: Nursing Author Type: Registered Nurse Type: Nursing Progress Note Filed: 08/04/2023 07:38 Note Text: 0700- Patient refusing PANCHO hose and SCDs at this time. 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 [facility] [place] NURSING PROG HNO ID: [id number] Author: KIEL MALONEY, SUSAN Service: Pain Management Author Type: Registered Nurse Type: Nursing Progress Note Filed: 08/04/2023 08:16 Note Text: THORACIC EPIDURAL ( T8) Dr. Lopez and Dr. Wiggins Patient verbalized understanding of epidural procedure. Patient tolerated procedure very well. [facility] [place] NURSING PROG HNO ID: [id number] Author: KINGA HERNANDEZ RN Service: Nursing Author Type: Registered Nurse Type: Nursing Progress Note Filed: 08/04/2023 06:40 Note Text: PATIENT EDUCATION TOPIC: PROCEDURE / SURGERY: Pre-op Teaching: Surgical Safety Principles PATIENT NAME: Susi Ortiz [place]ATION[place] READINESS TO LEARN COGNITIVE ABILITY: Alert and oriented MOTIVATION TO LEARN: Interested FAMILY SUPPORT: Unable to assess - Family not present INSTRUCTION PROVIDED TO: Patient PATIENT LEARNS BEST BY: Multiple Methods FACTORS AFFECTING LEARNING: None PHYSICAL LIMITATIONS AFFECTING LEARNING: None LEARNING RESPONSE DIAGNOSIS: ADULT: Well Adult PATIENT/FAMILY RESPONSE: Verbalizes understanding of: PRE-OPERATIVE INSTRUCTIONS-Correct action to take to follow pre-operative instructions Information received as demonstrated by interest and questions METHOD OF INSTRUCTION: Individual instruction Verbal instruction FOLLOW-UP PLAN: Complete - No need for follow-up INSTRUCTIONAL AIDS USED: NA SUPPLEMENTAL MATERIAL PROVIDED TO PATIENT: None REFERRAL (RECOMMENDATION): None Electronically Signed By: Kinga Hernandez [facility] [place] OPERATIVE NOon 08-04-2023 OPERATIVE NO HNO ID: [id number] Author: JOE GRANDA MD Service: General Surgery Author Type: Physician Type: Operative Report Filed: 08/05/2023 15:18 Note Text: [facility] - Operative Report SUSI ORTIZ : 1985 AGE: 38. SEX: F PATIENT TYPE: I HOSP SVC: Surgical LOCATION: [facility] ATTENDING PHYSICIAN: Joe Granda M.D. CSN NUMBER: [id number] DATE OF SURGERY/PROCEDURE: 08/04/2023 INCISION/PROCEDURE START TIME: 9:39 AM INCISION CLOSE/PROCEDURE END TIME: 2:39 PM PREOPERATIVE DIAGNOSIS: 1. Persistent morbid obesity. 2. 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 3. History of open splenectomy. POSTOPERATIVE DIAGNOSIS: 1. Persistent morbid obesity. 2. 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 3. History of open splenectomy. SURGEON: Joe Granda M.D. CHILD PROTECTION SPECIALIST: 1. Cony Soler MD. 2. Som Hampton MD. SURGERY/PROCEDURE: Open second-stage biliopancreatic diversion with duodenal switch (appropriate for 22 modifier) ANESTHESIA: General OPERATIVE INDICATIONS: This 38-year-old woman has a history of sleeve gastrectomy with prior leak. She underwent a comprehensive evaluation for revisional metabolic weight loss surgery to treat persistent morbid obesity with BMI 66 kg/sq m. Previously, the diagnostic laparoscopy and she had too much intraabdominal adhesions to safely do a laparoscopic biliopancreatic diversion with duodenal switch. She is brought to the operating room for an open procedure. DESCRIPTION OF PROCEDURE: She was positioned supine with her arms out. The abdomen was clipped, prepped and draped. A right subcostal incision with an extension to the left hand side was created. The abdomen was entered atraumatically. A meticulous lysis was performed using combination of predominantly sharp dissection with some blunt dissection, 1st mobilizing omentum and colon off the anterior abdominal wall and mobilizing the liver off the diaphragm and colon and stomach off the abdominal wall. This allowed enough space for wound protector to be placed. Then, the stomach and duodenum resected off the inferior aspect of the right lobe of the liver. A Payne retractor was placed and a complex sharp enterolysis of the entire small intestine was performed. The entire small intestine was inspected and there were several layers of small serosal injury without full thickness, which were not expected to be of clinical consequence, which were treated with 3-0 Vicryl suture. The entire small bowel length was counted and this was 380 cm. Gt was placed at 120 cm for the common channel and 250 cm for the alimentary limb. A periduodenal dissection was performed beginning at the level of the pylorus proceeding posteriorly around the upper portion of the duodenum. Duodenum was encircled and was divided with the 60 mm johnson staple load. Then, the duodenum was anastomosed to the ileum at the 250 cm gt with a posterior layer of running 3-0 Vicryl from the staple line to the ileum. The pseudo-Trevizo space was closed with a 3-0 Ethibond suture. Then, duodenostomies and ileostomies were created and inner layer of running 3-0 Monocryl was placed and tied, another anterior layer of running 3-0 Vicryl was placed and tied. The efferent limb was divided with a 6 mm johnson staple load to create the biliopancreatic limb proximally. Then, the distal limb was run down to the previously placed suture at the 120 cm gt and this was anastomosed to the tip of the biliopancreatic limb using 2 singer 45 mm staple load in a W-type configuration and a 6 mm johnson load to close the anastomosis. A 3-0 Ethibond was used to close the ileoileal defect. Inspection was made throughout for hemostasis which was complete. The retractor was removed. A complete surgical pause was held and all counts were assured to be correct. The wound protector was removed. The fascia was closed in layers with running #1 PDS. The subcutaneous tissues were irrigated. Joseph's fascia was closed with a running 3-0 Vicryl. Skin was closed with interrupted 3-0 Vicryl deep dermal stitches and a running 4-0 Monocryl. Dressing of Dermabond PRINEO was applied. DRAINS: None. COMPLICATIONS: None. SPECIMENS: None. ESTIMATED BLOOD LOSS: 100 mL. OPERATIVE FINDINGS: Total small bowel length 380 cm. Total alimentary length after biliopancreatic diversion with duodenal switch 250 cm, common channel 120 cm. Multiple hours of enterolysis failed to complete this procedure open, adding more than 50% of the operative time. Procedure appropriate for 22 modifier. ATTESTATION: I performed this procedure with the assistance of Dr. Cony Soler due to the complex preoperative nature of this procedure. He performed portions of the enterolysis and provide exposure during the duodenal dissection. Joe Granda M.D. ESTEFANIA:[id number] /[id number] D: (more content not included)... Normal [facility] 08-04 Phosphate [Mass/Vol] 3.9 mg/dL Normal 2.7-4.8 [facility] Comment on above: Order Comment: Specimen Type: BLOOD SPEC IMENOrdering Facility: [facility] Address: [address] [place] [address] Performed By: #### 1 9123-9, 99396-2, 2777-1 ####[facility]ATORYCLIA [id number] [address] CNPNon 08-03-2023 CNPN Telephone (GENBMI) SUSI ORTIZ ([id number]) 1985 F FNS Date Time Provider Department 08/03/23 SILVIA CURRY During your visit today, we recorded the following information about you: Silvia Curry, RN 08/03/2023 5:00 PM Signed [facility] COORDINATION SURGERY PRE-OP EDUCATION NOTE Phoned patient to reinforce prior pre-op instruction and answer any questions she might have. No answer. Left brief vmm including contact info for this RN and requested call back. Allergies As of Date: 08/03/2023 Noted Allergy Reaction ADHES. [id number] 03/13/2015 2 - Rash ADHESIVE TAPE-SILICONES 05/06/2019 2 - Rash AUGMENTIN (AMOXICILLIN-POT CLAVUL*05/06/2019 6 - Diarrhea KEFLEX (CEPHALEXIN) 05/06/2019 2 - Rash 9 - Itching PENICILLINS 05/06/2019 4 - Hives ULTRAM (TRAMADOL HCL) 03/13/2015 9 - Itching Date Reviewed: 07/22/2023 Reviewed by: Rosa Lacey LPN - Fully Assessed Prescriptions as of 08/03/2023 - busPIRone (BUSPAR) 15 mg tablet Take 1 tablet by mouth every 12 hours. - cetirizine (ZYRTEC) 10 mg tablet Take 1 tablet by mouth every afternoon. - hydrOXYzine pamoate (VISTARIL) 50 mg capsule Take 50 mg by mouth at bedtime as needed. - OXcarbazepine (TRILEPTAL) 300 mg tablet Take 300 mg by mouth daily at bedtime. - levonorgestrel (MIRENA) 21 mcg/24 hours (8 yrs) 52 mg IUD 1 Each by INTRAUTERINE route one time only. - enoxaparin (LOVENOX) 40 mg/0.4 mL Inject 0.4 mL subcutaneously once daily. - omeprazole (PRILOSEC) 20 mg capsule Take 1 capsule by mouth two times a day. - ondansetron orally disintegrating (ZOFRAN ODT) 4 mg disintegrating tablet Take 1 tablet by mouth every 8 hours as needed for nausea/vomiting for up to 60 doses. - senna-docusate (SENNA-S) 8.6-50 mg per tablet Take 1 tablet by mouth once daily. - omeprazole (PRILOSEC) 40 mg capsule TAKE 1 CAPSULE BY MOUTH 30 MINUTES BEFORE morning meal - montelukast (SINGULAIR) 10 mg tablet Take 10 mg by mouth daily at bedtime. - ARIPiprazole (ABILIFY) 10 mg tablet Take 10 mg by mouth daily at bedtime. - famotidine (PEPCID) 20 mg tablet Take 20 mg by mouth twice daily as needed. - lamoTRIgine (LAMICTAL) 100 mg tablet Take 100 mg by mouth every morning. - prazosin (MINIPRESS) 1 mg cap Take 1 mg by mouth daily at bedtime. - propranolol (INDERAL) 60 mg tablet Take 60 mg by mouth twice daily. - DULoxetine (CYMBALTA) 60 mg capsule Take 60 mg by mouth once daily. - acetaminophen (TYLENOL) 325 mg tablet Take 650 mg by mouth as needed. Problem List As Of Date 08/03/2023 Noted Resolved Thrombocytosis (HCC) [D75.839] 03/13/2015 Tonsillar enlargement [J35.1] 10/04/2015 TONEY on CPAP [G47.33] 10/04/2015 Gastroesophageal reflux disease [K21.9] 10/04/2015 DDD (degenerative disc disease), lumbar [M51.36]10/04/2015 Bipolar affective disorder (HCC) [F31.9] 10/04/2015 Recurrent tonsillitis [J03.91] 10/08/2015 Morbid obesity with body mass index of 60.0-69.*02/17/2020 Migraine [G43.909] Morbid obesity (HCC) [E66.01] 03/31/2023 Encounter Status:Closed by SILVIA CURRY on 08/03/23 Normal [facility] [facility] HISTORY PHYSICALon HISTORY PHYSICAL HNO ID: [id number] Author: NONI SUMMERS APRN.PRE SALES TECHNICAL CONSULTANT Service: ? Author Type: Nurse Practitioner Type: H&P Filed: 07/22/2023 13:17 Note Text: HISTORY AND PHYSICAL EXAMINATION SERVICE DATE: 07/22/2023 SERVICE TIME: 12:44 PM PRIMARY CARE PHYSICIAN: Elizabet Simental DO, DO REASON FOR VISIT: Susi Ortiz is a 38 year old female who is scheduled for GASTRECTOMY, GASTRIC RESTRICTIVE PARTIAL (50 TO 100 CM COMMON CHANNEL) TO LIMIT ABSORPTION at the request of Dr. Joe Granda for consultation. My final recommendation will be communicated back to the requesting physician by way of shared medical record or letter. Assessment/Plan Morbid obesity with body mass index of 60.0-69.9 in adult (HCC) Assessment: Body mass index is 66.6 kg/m?. TONEY on CPAP Assessment: Noncompliant with CPAP Thrombocytosis (HCC) Assessment: chronic leukocytosis and thrombocytosis Most recent labs CBC with diff: WBC 13.23 07/13/2023 Platelet Count 555 07/13/2023 Bipolar affective disorder (HCC) Assessment: managed on medication by PCP and psych Gastroesophageal reflux disease Assessment: Controlled on medication Migraine Assessment: managed on medication Follows with neuro- Dr. Mccauley METS: Climb a flight of stairs or walk up a hill (5.50 METs) Patient denies any chest pain or undue shortness of breath with the above physical activity. ANESTHESIA FINDINGS: Intubation History: No history of difficult intubation Final Airway Details 03/31/2023 Final airway type: endotracheal airway Final Endotracheal Airway: ETT Cuffed: yes Successful intubation technique: video laryngoscopy Devices used: Garcia and intubating stylet Endotracheal tube insertion site: oral Blade: Isela Blade size: #4 ETT size (mm): 8.0 Measured from: lips Measurement (cm): 22 Placement verified by: chest auscultation and capnometry Cormack-Lehane Classification: grade I - full view of glottis Number of attempts at approach: 1 Airway not difficult Significant Anesthesia Considerations: None Airway Exam: General: Morbid obesity Mallampati Score is CLASS III ULBT: Class II - Lower incisors can bite the upper lip below the jacinta line Neck: Short neck Mouth: Normal tongue size Dentition: Upper denture and Lower denture Airway History: No abnormal airway history The patient has the following: ACTIVE PROBLEM LIST Thrombocytosis Tonsillar Enlargement Toney On Cpap Gastroesophageal Reflux Disease Ddd (Degenerative Disc Disease), Lumbar Bipolar Affective Disorder (Hcc) Recurrent Tonsillitis Morbid Obesity With Body Mass Index of 60.0-69.9 in Adult (Hcc) Migraine Morbid Obesity (Hcc) Subjective CHIEF COMPLAINT: Morbid obesity HPI: 38 year old year old female presents today for PACC. Patient morbid obese, BMI Body mass index is 66.6 kg/m?., s/p gastric sleeve in 2017 with leak and re-op gastrotomy and stent extraction shortly after. Attempted laparoscopic procedure 03/2023 but was aborted. Now planned for OPEN biliopancreatic diversion with duodenal switch PAST MEDICAL HISTORY Diagnosis Date Bipolar disorder (HCC) DDD (degenerative disc disease), lumbar Depression Eczema GERD (gastroesophageal reflux disease) Migraine PAST SURGICAL HISTORY Procedure Laterality Date CHOLECYSTECTOMY HX 06/29/2007 LAP SLEEVE GASTRECTOMY 2017 NEUROPLASTY AND/TRANSPOS MEDIAN NRV CARPAL TUNNE 2008;2009 bilateral S PROBE PERC LUMBAR DISCECTOMY 2011; 2012 L4, L5 and L5 S1 SPLENECTOMY TOTAL SEPARATE PROCEDURE 06/29/2014 FAMILY HISTORY Problem Relation Age of Onset Thyroid Mother hypothyrodism Obesity Mother Obesity Father Diabetes Father HTN; Lymphoma Obesity Sister other (Migraines [Other]) Sister None Daughter None Son Diabetes Paternal Uncle Diabetes Paternal Grandmother Stroke Paternal Grandfather Difficulty with anesthesia No Family History SOCIAL HISTORY: Social History Tobacco Use Smoking status: Former Packs/day: 0.50 Years: 5.00 Additional pack years: 0.00 Total pack years: 2.50 Types: Cigarettes Quit date: 12/27/2013 Years since quittin.5 Smokeless tobacco: Never Vaping Use Vaping Use: Never used Substance Use Topics Alcohol use: Not Currently Comment: None since 2012 Drug use: Never Prior to Admission medications as of 07/22/23 1258 Medication Sig Last Dose Taking busPIRone (BUSPAR) 15 mg tablet Take 1 tablet by mouth every 12 hours. Yes cetirizine (ZYRTEC) 10 mg tablet Take 1 tablet by mouth every afternoon. Yes hydrOXYzine pamoate (VISTARIL) 50 mg capsule Take 50 mg by mouth at bedtime as needed. Yes OXcarbazepine (TRILEPTAL) 300 mg tablet Take 300 mg by mouth daily at bedtime. Yes levonorgestrel (MIRENA) 21 mcg/24 hours (8 yrs) 52 mg IUD 1 Each by INTRAUTERINE route one time only. Yes omeprazole (PRILOSEC) 20 mg capsule Take 1 capsule by mouth two times a day. Yes ondansetron orally disintegrat (more content not included)... Normal [facility] TYPE AND SCREEN,30 DAYon ABO A Normal [facility] Comment on above: Order Comment: Specimen Type: BLOOD SPEC IMENOrdering Facility: [facility] Address: [address] [place] [address] Performed By: #### T SCR30 ####CC MAIN BLOOD BANKCLIA [id number] [address] [place] HISTORICAL AB SCR STATUS Negative Normal [facility] Comment on above: Order Comment: Specimen Type: BLOOD SPEC IMENOrdering Facility: [facility] Address: [address] [place] [address] Performed By: #### T SCR30 ####CC MAIN BLOOD BANKCLIA [id number] [place] [address] [place] Rh Nom (Bld) Positive Normal [facility] Comment on above: Order Comment: Specimen Type: BLOOD SPEC IMENOrdering Facility: [facility] Address: [address] [place] [address] Performed By: #### T SCR30 ####CC MAIN BLOOD BANKCLIA [id number] [place] [address] [place] CNOVon 07-20-2023 CNOV Office Visit (BMIREJ ) ORTIZSUSI ([id number]) 1985 F FNS Date Time Provider Department 07/20/23 11:50 AM JOE GRANDA BMIREJ During your visit today, we recorded the following information about you: Pulse Blood pressure Weight Height 77/minute 121/78 175 kg 1.626 m Last Period 07/08/23 Joe Granda MD 07/20/2023 2:06 PM Signed SURGERY PREOPERATIVE VISIT NOTE Name: Susi Ortiz Medical Record: [id number] Encounter No.: [id number] Susi Ortiz is a 38 year old female seen in surgery clinic today for their final preoperative assessment. INTERVAL NOTE: Well prepared for surgery. Prior aborted laparoscopic procedure. VTE RISK CALCULATION: 0.42 % PLANNED PROCEDURE: OPEN biliopancreatic diversion with duodenal switch PAST MEDICAL HISTORY: PAST MEDICAL HISTORY Diagnosis Date Bipolar disorder (HCC) DDD (degenerative disc disease), lumbar Depression Eczema GERD (gastroesophageal reflux disease) Migraine PAST SURGICAL HISTORY: PAST SURGICAL HISTORY Procedure Laterality Date CHOLECYSTECTOMY HX 06/29/2007 LAP SLEEVE GASTRECTOMY 2017 NEUROPLASTY AND/TRANSPOS MEDIAN NRV CARPAL TUNNE 2008;2009 bilateral S PROBE PERC LUMBAR DISCECTOMY 2011; 2012 L4, L5 and L5 S1 SPLENECTOMY TOTAL SEPARATE PROCEDURE 06/29/2014 SOCIAL HISTORY: Social History Tobacco Use Smoking status: Former Packs/day: 0.50 Years: 5.00 Additional pack years: 0.00 Total pack years: 2.50 Types: Cigarettes Quit date: 12/27/2013 Years since quittin.5 Smokeless tobacco: Never Vaping Use Vaping Use: Never used Substance Use Topics Alcohol use: Not Currently Comment: None since 2012 Drug use: Never ALLERGIES: ALLERGIES Allergen Reactions Adhes. Xzkr-Gzcj-Mt* Rash Adhesive Tape-Silic* Rash Augmentin [Amoxicil* Diarrhea Keflex [Cephalexin] Rash, Itching Penicillins Hives Ultram [Tramadol Hc* Itching MEDICATIONS: Prior to Admission Medications: omeprazole (PRILOSEC) 40 mg capsule TAKE 1 CAPSULE BY MOUTH 30 MINUTES BEFORE morning meal lidocaine (LIDODERM) 5 % Apply 1 Patch as directed every 24 hours. montelukast (SINGULAIR) 10 mg tablet Take 10 mg by mouth daily at bedtime. oxyCODONE IR (ROXICODONE) 5 mg immediate release tablet Take 1 tablet by mouth every 8 hours as needed for pain. pantoprazole DR (PROTONIX) 40 mg tablet Take 1 tablet by mouth once daily. ondansetron (ZOFRAN) 4 mg tablet Take 1 tablet by mouth every 8 hours as needed for nausea/vomiting. senna-docusate (SENNA-S) 8.6-50 mg per tablet Take 1-2 tablets by mouth once daily. Do not take if you have diarrhea, unless otherwise advised. ARIPiprazole (ABILIFY) 10 mg tablet Take 10 mg by mouth daily at bedtime. famotidine (PEPCID) 20 mg tablet Take 20 mg by mouth twice daily as needed. lamoTRIgine (LAMICTAL) 100 mg tablet Take 100 mg by mouth every morning. prazosin (MINIPRESS) 1 mg cap Take 1 mg by mouth daily at bedtime. propranolol (INDERAL) 60 mg tablet Take 60 mg by mouth twice daily. DULoxetine (CYMBALTA) 60 mg capsule Take 60 mg by mouth once daily. acetaminophen (TYLENOL) 325 mg tablet Take 650 mg by mouth as needed. No current facility-administered medications for this visit. VISIT NOTE This patient was seen in clinic today to obtain informed consent, to discuss the details of their upcoming operation including the appropriate expectations for perioperative and postoperative care. In addition, preoperative and postoperative relevant prescriptions were provided and explained during this clinic visit. Based on co morbidities, age and gender, DVT risk is elevated. ERAS protocol discussed. Narcotics sparing postop recovery discussed. The consent discussion included the risks, benefits and anticipated outcomes of the procedure, the risks and benefits of the alternatives to the procedure, and the roles and tasks of the personnel to be involved. Patient is scheduled for OPEN biliopancreatic diversion with duodenal switch. I have discussed the risks of surgery including infection, bleeding including injury to the spleen, the mesenteric blood vessels, conversion in the open, postoperative leak requiring stenting, reoperation, resection or repair, stricture requiring dilation or revision, marginal ulcer requiring treatment including reoperation, and incisional hernias. I have also discussed the long-term and short-term risks of internal hernias and complications related to it. I have discussed regarding unsatisfactory weight loss as well as penitentiary weight regain. I have also discussed medical complications including urinary tract infections, myocardial infarction, DVT, PE, prolonged ICU stay, and possible postoperative mechanical ventilation and the risk of mortality. I have reviewed with this patient needed nutritional changes, post-operative recovery, and the potential (more content not included)... Normal [facility] CBC W Auto Differential pane l (Bld)on 07-13-2023 Basophils (Bld) [#/Vol] 0.11 10*3/uL High <0.11 [facility] Comment on above: Order Comment: Specimen Type: BLOOD SPEC IMENOrdering Facility: [facility] Address: [address] [place] [address] Performed By: #### 5 7021-8 ####[facility] LABCLIA [id number] [place] [address] Basophils/100 WBC (Bld) 0.8 % Normal [facility] Comment on above: Order Comment: Specimen Type: BLOOD SPEC IMENOrdering Facility: [facility] Address: [address] [place] [address] Performed By: #### 5 7021-8 ####[facility] LABCLIA [id number] [place] [address] Differential cell count method Nom (Bld) Auto Normal [facility] Comment on above: Order Comment: Specimen Type: BLOOD SPEC IMENOrdering Facility: [facility] Address: [address] [place] [address] Performed By: #### 5 7021-8 ####[facility] LABCLIA [id number] [place] [address] Eosinophils (Bld) [#/Vol] 0.31 10*3/uL Normal <0.46 [facility] Comment on above: Order Comment: Specimen Type: BLOOD SPEC IMENOrdering Facility: [facility] Address: [address] [place] [address] Performed By: #### 5 7021-8 ####[facility] LABCLIA [id number] [place] [address] Eosinophils/100 WBC (Bld) 2.3 % Normal [facility] Comment on above: Order Comment: Specimen Type: BLOOD SPEC IMENOrdering Facility: [facility] Address: [address] [place] [address] Performed By: #### 5 7021-8 ####[facility] LABCLIA [id number] [place] [address] Erythrocyte distribution width (RBC) [Ratio] 14.1 % Normal 11.5-15.0 [facility] Comment on above: Order Comment: Specimen Type: BLOOD SPEC IMENOrdering Facility: [facility] Address: [address] [place] [address] Performed By: #### 5 7021-8 ####[facility] LABCLIA [id number] [place] [address] Hematocrit (Bld) [Volume fraction] 45.8 % Normal 36.0-46.0 [facility] Comment on above: Order Comment: Specimen Type: BLOOD SPEC IMENOrdering Facility: [facility] Address: [address] [place] [address] Performed By: #### 5 7021-8 ####[facility] LABCLIA [id number] [place] [address] Hemoglobin (Bld) [Mass/Vol] 14.7 g/dL Normal 11.5-15.5 [facility] Comment on above: Order Comment: Specimen Type: BLOOD SPEC IMENOrdering Facility: [facility] Address: [address] [place] [address] Performed By: #### 5 7021-8 ####[facility] LABCLIA [id number] [place] [address] Immature granulocytes (Bld) [#/Vol] 0.05 10*3/uL Normal <0.10 [facility] Comment on above: Order Comment: Specimen Type: BLOOD SPEC IMENOrdering Facility: [facility] Address: [address] [place] [address] Performed By: #### 5 7021-8 ####[facility] LABCLIA [id number] [place] [address] Immature granulocytes/100 WBC (Bld) 0.4 % Normal [facility] Comment on above: Order Comment: Specimen Type: BLOOD SPEC IMENOrdering Facility: [facility] Address: [address] [place] [address] Performed By: #### 5 7021-8 ####[facility] LABCLIA [id number] [place] [address] Lymphocytes (Bld) [#/Vol] 3.61 10*3/uL Normal 1.00-4.00 [facility] Comment on above: Order Comment: Specimen Type: BLOOD SPEC IMENOrdering Facility: [facility] Address: [address] [place] [address] Performed By: #### 5 7021-8 ####[facility] LABCLIA [id number] [place] [address] Lymphocytes/100 WBC (Bld) 27.3 % Normal [facility] Comment on above: Order Comment: Specimen Type: BLOOD SPEC IMENOrdering Facility: [facility] Address: [address] [place] [address] Performed By: #### 5 7021-8 ####[facility] LABCLIA [id number] [place] [address] MCH (RBC) [Entitic mass] 28.9 pg Normal 26.0-34.0 [facility] Comment on above: Order Comment: Specimen Type: BLOOD SPEC IMENOrdering Facility: [facility] Address: [address] [place] [address] Performed By: #### 5 7021-8 ####[facility] LABCLIA [id number] [place] [address] MCHC (RBC) [Mass/Vol] 32.1 g/dL Normal 30.5-36.0 [facility] Comment on above: Order Comment: Specimen Type: BLOOD SPEC IMENOrdering Facility: [facility] Address: [address] [place] [address] Performed By: #### 5 7021-8 ####[facility] LABCLIA [id number] [place] [address] MCV (RBC) [Entitic vol] 90.0 fL Normal 80.0-100.0 [facility] Comment on above: Order Comment: Specimen Type: BLOOD SPEC IMENOrdering Facility: [facility] Address: [address] [place] [address] Performed By: #### 5 7021-8 ####[facility] LABCLIA [id number] [place] [address] Monocytes (Bld) [#/Vol] 1.10 10*3/uL High <0.87 [facility] Comment on above: Order Comment: Specimen Type: BLOOD SPEC IMENOrdering Facility: [facility] Address: [address] [place] [address] Performed By: #### 5 7021-8 ####[facility] LABCLIA [id number] [place] [address] Monocytes/100 WBC (Bld) 8.3 % Normal [facility] Comment on above: Order Comment: Specimen Type: BLOOD SPEC IMENOrdering Facility: [facility] Address: [address] [place] [address] Performed By: #### 5 7021-8 ####[facility] LABIA [id number] [place] [address] Neutrophils (Bld) [#/Vol] 8.05 10*3/uL High 1.45-7.50 [facility] Comment on above: Order Comment: Specimen Type: BLOOD SPEC IMENOrdering Facility: [facility] Address: [address] [place] [address] Performed By: #### 5 7021-8 ####[facility] LABCLIA [id number] [place] [address] Neutrophils/100 WBC (Bld) 60.9 % Normal [facility] Comment on above: Order Comment: Specimen Type: BLOOD SPEC IMENOrdering Facility: [facility] Address: [address] [place] [address] Performed By: #### 5 7021-8 ####[facility] LABCLIA [id number] [place] [address] Nucleated RBC (Bld) [#/Vol] 10*3/uL Normal <0.01 [facility] Comment on above: Order Comment: Specimen Type: BLOOD SPEC IMENOrdering Facility: [facility] Address: [address] [place] [address] Performed By: #### 5 7021-8 ####[facility] LABCLIA [id number] [place] [address] Nucleated RBC/100 WBC (Bld) [Ratio] 0.0 /100 WBC Normal [facility] Comment on above: Order Comment: Specimen Type: BLOOD SPEC IMENOrdering Facility: [facility] Address: [address] [place] [address] Performed By: #### 5 7021-8 ####[facility] LABCLIA [id number] [place] [address] Platelet mean volume (Bld) [Entitic vol] 9.1 fL Normal 9.0-12.7 [facility] Comment on above: Order Comment: Specimen Type: BLOOD SPEC IMENOrdering Facility: [facility] Address: [address] [place] [address] Performed By: #### 5 7021-8 ####[facility] LABIA [id number] [place] [address] Platelets (Bld) [#/Vol] 555 10*3/uL High 150-400 [facility] Comment on above: Order Comment: Specimen Type: BLOOD SPEC IMENOrdering Facility: [facility] Address: [address] [place] [address] Performed By: #### 5 7021-8 ####[facility] LABCLIA [id number] [place] [address] RBC (Bld) [#/Vol] 5.09 10*6/uL Normal 3.90-5.20 [facility] Comment on above: Order Comment: Specimen Type: BLOOD SPEC IMENOrdering Facility: [facility] Address: [address] [place] [address] Performed By: #### 5 7021-8 ####[facility] LABIA [id number] [place] [address] WBC (Bld) [#/Vol] 13.23 10*3/uL High 3.70-11.00 [facility] Comment on above: Order Comment: Specimen Type: BLOOD SPEC IMENOrdering Facility: [facility] Address: [address] [place] [address] Performed By: #### 5 7021-8 ####[facility] LABIA [id number] [place] [address] Comprehensive metabolic 2000 panelon 07-13-2023 Albumin [Mass/Vol] 4.5 g/dL Normal 3.9-4.9 [facility] Comment on above: Order Comment: Specimen Type: BLOOD SPEC IMENOrdering Facility: [facility] Address: [address] [place] [address] Performed By: #### 2 4323-8 ####[facility] LABIA [id number] [place] [address] ALP [Catalytic activity/Vol] 124 U/L High 34-123 [facility] Comment on above: Order Comment: Specimen Type: BLOOD SPEC IMENOrdering Facility: [facility] Address: [address] [place] [address] Performed By: #### 2 4323-8 ####[facility] LABCLIA [id number] [place] [address] ALT [Catalytic activity/Vol] 18 U/L Normal 7-38 [facility] Comment on above: Order Comment: Specimen Type: BLOOD SPEC IMENOrdering Facility: [facility] Address: [address] [place] [address] Performed By: #### 2 4323-8 ####[facility] LABCLIA [id number] [place] [address] Anion gap [Moles/Vol] 11 mmol/L Normal 9-18 [facility] Comment on above: Order Comment: Specimen Type: BLOOD SPEC IMENOrdering Facility: [facility] Address: [address] [place] [address] Performed By: #### 2 4323-8 ####[facility] LABCLIA [id number] [place] [address] AST [Catalytic activity/Vol] 21 U/L Normal 13-35 [facility] Comment on above: Order Comment: Specimen Type: BLOOD SPEC IMENOrdering Facility: [facility] Address: [address] [place] [address] Performed By: #### 2 4323-8 ####[facility] LABCLIA [id number] [place] [address] Bilirubin [Mass/Vol] 0.3 mg/dL Normal 0.2-1.3 [facility] Comment on above: Order Comment: Specimen Type: BLOOD SPEC IMENOrdering Facility: [facility] Address: [address] [place] [address] Performed By: #### 2 4323-8 ####[facility] LABCLIA [id number] [place] [address] Calcium [Mass/Vol] 10.0 mg/dL Normal 8.5-10.2 [facility] Comment on above: Order Comment: Specimen Type: BLOOD SPEC IMENOrdering Facility: [facility] Address: [address] [place] [address] Performed By: #### 2 4323-8 ####[facility] LABCLIA [id number] [place] [address] Chloride [Moles/Vol] 101 mmol/L Normal 97-105 [facility] Comment on above: Order Comment: Specimen Type: BLOOD SPEC IMENOrdering Facility: [facility] Address: [address] [place] [address] Performed By: #### 2 4323-8 ####[facility] LABCLIA [id number] [place] [address] CO2 [Moles/Vol] 25 mmol/L Normal 22-30 [facility] Comment on above: Order Comment: Specimen Type: BLOOD SPEC IMENOrdering Facility: [facility] Address: [address] [place] [address] Performed By: #### 2 4323-8 ####[facility] LABCLIA [id number] [place] [address] Creatinine [Mass/Vol] 0.73 mg/dL Normal 0.58-0.96 [facility] Comment on above: Order Comment: Specimen Type: BLOOD SPEC IMENOrdering Facility: [facility] Address: [address] [place] [address] Performed By: #### 2 4323-8 ####[facility] LABCLIA [id number] [place] [address] Creatinine and Glomerular filtration rate.predicted panel (S/P/Bld) 108 mL/min/1.73m??? Normal >=60 [facility] Comment on above: Order Comment: Specimen Type: BLOOD SPEC IMENOrdering Facility: [facility] [facility] Address: [address] [place] [address] Result Comment: Janet mated Glomerular Filtration Rate (eGFR) is calculated using the 2020 CKD-EPI creatinine equation. This equation utilizes serum creatinine, sex, and age as parameters. The creatinine assay has traceable calibration to isotope dilution-mass spectrometry. Refer to KDIGO guidelines for clinical interpretation. In patients with unstable renal function, e.g. those with acute kidney injury, the eGFR may not accurately reflect actual GFR. Performed By: #### 2 4323-8 ####[facility] LABCLIA [id number] [place] [address] Glucose [Mass/Vol] 115 mg/dL High 74-99 [facility] Comment on above: Order Comment: Specimen Type: BLOOD SPEC IMENOrdering Facility: [facility] Address: [address] [place], [place] [id number] Result Comment: The [place] Diabetes Association (ADA) provides guidance for cutoff values for fasting glucose and random glucose. The ADA defines fasting as no caloric intake for at least 8 hours. Fasting plasma glucose results between 100 to 125 mg/dL indicate increased risk for diabetes (prediabetes). Fasting plasma glucose results greater than or equal to 126 mg/dL meet the criteria for diagnosis of diabetes. In the absence of unequivocal hyperglycemia, results should be confirmed by repeat testing. In a patient with classic symptoms of hyperglycemia or hyperglycemic crisis, random plasma glucose results greater than or equal to 200 mg/dL meet the criteria for diagnosis of diabetes. Reference: Standards of Medical Care in Diabetes 2016, [place] [employer] Association. Diabetes Care. 2016.39(Suppl 1). Performed By: #### 2 4323-8 ####[facility] LABCLIA [id number] [place] [address] Potassium [Moles/Vol] 4.3 mmol/L Normal 3.7-5.1 [facility] Comment on above: Order Comment: Specimen Type: BLOOD SPEC IMENOrdering Facility: [facility] Address: [address] [place] [address] Performed By: #### 2 4323-8 ####[facility] LABCLIA [id number] [place] [address] Protein [Mass/Vol] 8.1 g/dL High 6.3-8.0 [facility] Comment on above: Order Comment: Specimen Type: BLOOD SPEC IMENOrdering Facility: [facility] Address: [address] [place] [address] Performed By: #### 2 4323-8 ####[facility] LABCLIA [id number] [place] [address] Sodium [Moles/Vol] 137 mmol/L Normal 136-144 [facility] Comment on above: Order Comment: Specimen Type: BLOOD SPEC IMENOrdering Facility: [facility] Address: [address] [facility] [place] [place] [address] Performed By: #### 2 4323-8 ####[facility] LABCLIA [id number] [place] [address] Urea nitrogen [Mass/Vol] 10 mg/dL Normal 7-21 [facility] Comment on above: Order Comment: Specimen Type: BLOOD SPEC IMENOrdering Facility: [facility] Address: [address] [place] [address] Performed By: #### 2 4323-8 ####[facility] LABCLIA [id number] [place] [address] Nick 04-27-2023 CNPN Telephone (BMIREJ) SUSI ORTIZ ([id number]) 1985 [facility] Date Time Provider Department 04/27/23 JOE GRANDA BMIJAN During your visit today, we recorded the following information about you: Joe Granda MD 04/27/2023 10:53 AM Signed This patient underwent a diagnostic laparoscopy with some enterolysis when she was intended to have a duodenal switch procedure, completed laparoscopically. My impression was that this was not possible at this time for several reasons. 1 was the severity of her adhesions would require an open operation and likely the assistance of a second staff surgeon because of her complex prior surgical history including a leak after sleeve gastrectomy causing significant intra-abdominal adhesions that were not amenable to laparoscopic treatment. The second was severe intra-abdominal obesity due to her BMI of 67 that did not allow her ileum to be retracted upwards much at all. Therefore I decided to stop the procedure, continue her on a protein sparing modified fast diet, and return for a planned open duodenal switch operation with the availability of a second staff surgeon for assistance because of the severe intra-abdominal adhesions from her prior surgery and leakage. This was also discussed with the patient afterwards and she was appreciative and understood all of these necessities to give her the best chance for a safe and effective weight loss operation. We will plan on scheduling her and she will continue on the protein sparing modified fast until then. Joe Granda MD Allergies As of Date: 04/27/2023 Noted Allergy Reaction ADHES. [id number] 03/13/2015 2 - Rash ADHESIVE TAPE-SILICONES 05/06/2019 2 - Rash AUGMENTIN (AMOXICILLIN-POT CLAVUL*05/06/2019 6 - Diarrhea KEFLEX (CEPHALEXIN) 05/06/2019 2 - Rash 9 - Itching PENICILLINS 05/06/2019 4 - Hives ULTRAM (TRAMADOL HCL) 03/13/2015 9 - Itching Date Reviewed: 03/31/2023 Reviewed by: Hina Monet RN - Fully Assessed Prescriptions as of 04/27/2023 - omeprazole (PRILOSEC) 40 mg capsule TAKE 1 CAPSULE BY MOUTH 30 MINUTES BEFORE morning meal - lidocaine (LIDODERM) 5 % Apply 1 Patch as directed every 24 hours. - montelukast (SINGULAIR) 10 mg tablet Take 10 mg by mouth daily at bedtime. - oxyCODONE IR (ROXICODONE) 5 mg immediate release tablet Take 1 tablet by mouth every 8 hours as needed for pain. - pantoprazole DR (PROTONIX) 40 mg tablet Take 1 tablet by mouth once daily. - ondansetron (ZOFRAN) 4 mg tablet Take 1 tablet by mouth every 8 hours as needed for nausea/vomiting. - senna-docusate (SENNA-S) 8.6-50 mg per tablet Take 1-2 tablets by mouth once daily. Do not take if you have diarrhea, unless otherwise advised. - ARIPiprazole (ABILIFY) 10 mg tablet Take 10 mg by mouth daily at bedtime. - famotidine (PEPCID) 20 mg tablet Take 20 mg by mouth twice daily as needed. - lamoTRIgine (LAMICTAL) 100 mg tablet Take 100 mg by mouth every morning. - prazosin (MINIPRESS) 1 mg cap Take 1 mg by mouth daily at bedtime. - propranolol (INDERAL) 60 mg tablet Take 60 mg by mouth twice daily. - DULoxetine (CYMBALTA) 60 mg capsule Take 60 mg by mouth once daily. - acetaminophen (TYLENOL) 325 mg tablet Take 650 mg by mouth as needed. Problem List As Of Date 04/27/2023 Noted Resolved Thrombocytosis (HCC) [D75.839] 03/13/2015 Tonsillar enlargement [J35.1] 10/04/2015 TONEY on CPAP [G47.33] 10/04/2015 Gastroesophageal reflux disease [K21.9] 10/04/2015 DDD (degenerative disc disease), lumbar [M51.36]10/04/2015 Bipolar affective disorder (HCC) [F31.9] 10/04/2015 Recurrent tonsillitis [J03.91] 10/08/2015 Morbid obesity with body mass index of 60.0-69.*02/17/2020 Migraine [G43.909] Morbid obesity (HCC) [E66.01] 03/31/2023 Encounter Status:Closed by JOE GRANDA on 04/27/23 Normal [facility] Basic metabolic 2000 panelon 04-01-2023 Anion gap [Moles/Vol] 10 mmol/L Normal 9-18 [facility] Comment on above: Order Comment: Specimen Type: BLOOD SPEC IMENOrdering Facility: [facility] Address: [address] [id number] Performed By: #### 2 4321-2 ####[facility]ORY[facility] [id number] [place] [address] [place] Calcium [Mass/Vol] 9.1 mg/dL Normal 8.5-10.2 [facility] Comment on above: Order Comment: Specimen Type: BLOOD SPEC IMENOrdering Facility: [facility] Address: [address] [place] [address] Performed By: #### 2 4321-2 ####[facility] LABORATORYCLIA [id number] [address] STATES OF [facility] Chloride [Moles/Vol] 102 mmol/L Normal 97-105 [facility] Comment on above: Order Comment: Specimen Type: BLOOD SPEC IMENOrdering Facility: [facility] Address: [address] [place] [address] Performed By: #### 2 4321-2 ####[facility] LABORATORYCLIA [id number] [address] CO2 [Moles/Vol] 25 mmol/L Normal 22-30 [facility] Comment on above: Order Comment: Specimen Type: BLOOD SPEC IMENOrdering Facility: [facility] Address: [address] [place] [address] Performed By: #### 2 4321-2 ####[facility] LABORATORYCLIA [id number] [address] Creatinine [Mass/Vol] 0.59 mg/dL Normal 0.58-0.96 [facility] Comment on above: Order Comment: Specimen Type: BLOOD SPEC IMENOrdering Facility: [facility] Address: [address] [place] [address] Performed By: #### 2 4321-2 ####[facility] LABORATORYCLIA [id number] [address] Creatinine and Glomerular filtration rate.predicted panel (S/P/Bld) 119 mL/min/1.73m??? Normal >=60 [facility] Comment on above: Order Comment: Specimen Type: BLOOD SPEC IMENOrdering Facility: [facility] Address: [address] [place] [address] Result Comment: Janet mated Glomerular Filtration Rate (eGFR) is calculated using the 2020 CKD-EPI creatinine equation. This equation utilizes serum creatinine, sex, and age as parameters. The creatinine assay has traceable calibration to isotope dilution-mass spectrometry. Refer to KDIGO guidelines for clinical interpretation. In patients with unstable renal function, e.g. those with acute kidney injury, the eGFR may not accurately reflect actual GFR. Performed By: #### 2 4321-2 ####[facility]ORYCLIA [id number] [place] [id number] [place] Glucose [Mass/Vol] 130 mg/dL High 74-99 [facility] Comment on above: Order Comment: Specimen Type: BLOOD SPEC IMENOrdering Facility: [facility] Address: [address] [place] [address] Result Comment: The [place] Diabetes Association (ADA) provides guidance for cutoff values for fasting glucose and random glucose. The ADA defines fasting as no caloric intake for at least 8 hours. Fasting plasma glucose results between 100 to 125 mg/dL indicate increased risk for diabetes (prediabetes). Fasting plasma glucose results greater than or equal to 126 mg/dL meet the criteria for diagnosis of diabetes. In the absence of unequivocal hyperglycemia, results should be confirmed by repeat testing. In a patient with classic symptoms of hyperglycemia or hyperglycemic crisis, random plasma glucose results greater than or equal to 200 mg/dL meet the criteria for diagnosis of diabetes. Reference: Standards of Medical Care in Diabetes 2016, [place] [employer]. Diabetes Care. 2016.39(Suppl 1). Performed By: #### 2 4321-2 ####[facility]ORYCLIA [id number] [place] [id number] [place] Potassium [Moles/Vol] 4.2 mmol/L Normal 3.7-5.1 [facility] Comment on above: Order Comment: Specimen Type: BLOOD SPEC IMENOrdering Facility: [facility] Address: [address] [place] [address] Performed By: #### 2 4321-2 ####[facility]ORYCLIA [id number] [place] [id number] [place] Sodium [Moles/Vol] 137 mmol/L Normal 136-144 [facility] Comment on above: Order Comment: Specimen Type: BLOOD SPEC IMENOrdering Facility: [facility] Address: [address] [place] [address] Performed By: #### 2 4321-2 ####[facility]ORYCLIA [id number] [place] [address] [place] Urea nitrogen [Mass/Vol] 5 mg/dL Low 7-21 [facility] Comment on above: Order Comment: Specimen Type: BLOOD SPEC IMENOrdering Facility: [facility] Address: [address] [address] Performed By: #### 2 4321-2 ####[facility]ORYCLIA [id number] [address] [place] CBC panel Auto (Bld)on 04-01 Erythrocyte distribution width (RBC) [Ratio] 15.1 % High 11.5-15.0 [facility] Comment on above: Order Comment: Specimen Type: BLOOD SPEC IMENOrdering Facility: [facility] Address: [address] [address] Performed By: #### 5 8410-2 ####[facility]ATORYCLIA [id number] [address] [place] [facility] Hematocrit (Bld) [Volume fraction] 39.2 % Normal 36.0-46.0 [facility] Comment on above: Order Comment: Specimen Type: BLOOD SPEC IMENOrdering Facility: [facility] Address: [address] [address] Performed By: #### 5 8410-2 ####[facility]ATORYCLIA [id number] [address] [place] Hemoglobin (Bld) [Mass/Vol] 12.7 g/dL Normal 11.5-15.5 [facility] Comment on above: Order Comment: Specimen Type: BLOOD SPEC IMENOrdering Facility: [facility] Address: [address] [address] Performed By: #### 5 8410-2 ####[facility]ATORYCLIA [id number] [address] [place] MCH (RBC) [Entitic mass] 29.3 pg Normal 26.0-34.0 [facility] Comment on above: Order Comment: Specimen Type: BLOOD SPEC IMENOrdering Facility: [facility] Address: [address] [address] Performed By: #### 5 8410-2 ####[facility]ORYCLIA [id number] [address] [place] MCHC (RBC) [Mass/Vol] 32.4 g/dL Normal 30.5-36.0 [facility] Comment on above: Order Comment: Specimen Type: BLOOD SPEC IMENOrdering Facility: [facility] Address: [address] [place] [address] Performed By: #### 5 8410-2 ####[facility] LABORATORYCLIA [id number] [address] [place] MCV (RBC) [Entitic vol] 90.3 fL Normal 80.0-100.0 [facility] Comment on above: Order Comment: Specimen Type: BLOOD SPEC IMENOrdering Facility: [facility] Address: [address] [place] [address] Performed By: #### 5 8410-2 ####[facility]ORYCLIA [id number] [address] [place] Nucleated RBC (Bld) [#/Vol] 10*3/uL Normal <0.01 [facility] Comment on above: Order Comment: Specimen Type: BLOOD SPEC IMENOrdering Facility: [facility] Address: [address] [place] [address] Performed By: #### 5 8410-2 ####[facility]ATORYCLIA [id number] [place] [address] [place] Platelet mean volume (Bld) [Entitic vol] 9.7 fL Normal 9.0-12.7 [facility] Comment on above: Order Comment: Specimen Type: BLOOD SPEC IMENOrdering Facility: [facility] Address: [address] [place] [address] Performed By: #### 5 8410-2 ####[facility] LABORATORYCLIA [id number] [address] [place] Platelets (Bld) [#/Vol] 463 10*3/uL High 150-400 [facility] Comment on above: Order Comment: Specimen Type: BLOOD SPEC IMENOrdering Facility: [facility] Address: [address] Performed By: #### 5 8410-2 ####[facility]ATORYCLIA [id number] [place] [id number] [place] RBC (Bld) [#/Vol] 4.34 10*6/uL Normal 3.90-5.20 [facility] Comment on above: Order Comment: Specimen Type: BLOOD SPEC IMENOrdering Facility: [facility] Address: [address] [address] Performed By: #### 5 8410-2 ####[facility]ORYCLIA [id number] [place] [id number] [place] WBC (Bld) [#/Vol] 15.94 10*3/uL High 3.70-11.00 [facility] Comment on above: Order Comment: Specimen Type: BLOOD SPEC IMENOrdering Facility: [facility] Address: [address] [place] [address] Performed By: #### 5 8410-2 ####[facility]ORYCLIA [id number] [place] [id number] [place] NURSING PROGon 04-01-2023 NURSING PROG HNO ID: [id number] Author: Susi Ruffin, SUSAN Service: Nursing Author Type: Registered Nurse Type: Nursing Progress Note Filed: 04/01/2023 4:52 PM Note Text: Daily Note 1645 Pt discharged in stable condition and all of belongings left with pt. Discussed discharge paperwork, follow-up appointments, and clarified questions. IV removed and transport called to wheel pt out. Normal [facility] NURSING PROG HNO ID: [id number] Author: Hina Monet RN Service: ? Author Type: Registered Nurse Type: Nursing Progress Note Filed: 04/01/2023 3:24 AM Note Text: Pt tolerating clears. Given oxycodone twice tonight for abd pain. States passing flatus. up to BR with standby assist. Steady, stable. Normal [facility] PT EDon 04-01-2023 PT ED HNO ID: [id number] Author: Tasneem Good RD Service: NST-Nutrition Support Team Author Type: Registered Dietitian Type: Patient Education Filed: 04/01/2023 12:24 PM Note Text: NUTRITION THERAPY PATIENT EDUCATION SERVICE DATE: 04/01/2023 SERVICE TIME: 12:23 PM TOPIC: Diet: Bariatric LEARNING ASSESSMENT Individuals Assessed: Patient Preferred Learning Method: Verbal Instruction and Written Instruction Barriers to Learning: None Evident LEARNING RESPONSE Instruction Provided to: Patient Patient / Family Response: Performs Independently, Verbalizes Understanding, and Recommend Cont. Instruction Method of Instruction: Written instruction - handouts Verbal instruction Material(s) Provided to Patient: Education Materials Provided Nutrition Education [facility]: Post-Bariatric Surgery Nutrition Follow-Up Plan: Follow-up with Primary Care Referral (Recommendation): Nutrition - Outpatient and Primary Care Provider MNT Billing: $ Initial Assessment: 1-15 minutes SIGNATURE: Tasneem Good RD PATIENT NAME: Susi Milesenship DATE: April 01, 2023 TIME: 12:23 PM PAGER: [facility] [place] ANES POSTPROC EVALon 023 ANES POSTPROC EVAL HNO ID: [id number] Author: Darrel Conklin MD Service: Anesthesiology Author Type: Anesthesiologist Type: Anesthesia Postprocedure Evaluation Filed: 03/31/2023 2:40 PM Note Text: POST ANESTHESIA EVALUATION NOTE : 1985 Procedure Summary Date: 03/31/23 Room / Location: OR06 / [facility] OR Anesthesia Start: 1023 Anesthesia Stop: 1308 Procedure: Laparoscopic ENTEROLYSIS ADULT with EDG (Abdomen) Diagnosis: Morbid obesity with BMI of 70 and over, adult (HCC) (Morbid obesity with BMI of 70 and over, adult (HCC) [E66.01, Z68.45]) Surgeons: Joe Granda MD Responsible Provider: Darrel Conklin MD Anesthesia Type: general ASA Status: 3 Anesthesia Type: general Airway Type: ETT Last Vitals Vitals Value Taken Time BP 123/53 03/31/23 1430 Temp 36.7 ?C (98.1 ?F) 03/31/23 1303 Pulse 83 03/31/23 1439 Resp 9 03/31/23 1439 SpO2 96 % 03/31/23 1439 Vitals shown include unvalidated device data. Post Anesthesia Patient Status Patient Evaluation: PACU. PACU/ICU Patient Condition: stable. Anticipated Disposition: phase 2 then home. Neurological Status: aware and responsive. Pulmonary Status: breathing comfortably on room air Airway Control: returned to baseline unsupported. Cardiovascular Status: stable. Pain Management: clinically adequate Postoperative Hydration: acceptable. Intraoperative Events: no significant anesthesia events Recommendation: continue current plan of care. Anesthesia Observations No Documentation SIGNATURE: Darrel Conklin MD PATIENT NAME: Susi Milesenship DATE: March 31, 2023 TIME: 2:40 PM CSN: [id number] [facility] [place] ANES PRE-OPon 03-31-2023 ANES PRE-OP HNO ID: [id number] Author: Darrel Conklin MD Service: Anesthesiology Author Type: Anesthesiologist Type: Anesthesia Preprocedure Evaluation Filed: 03/31/2023 9:13 AM Note Text: ANESTHESIOLOGY DAY OF SURGERY NOTE : 1985 Procedure Information Date/Time: 03/31/23929 Procedure: LAPAROSCOPY SURGICAL GASTRIC RESTRICTIVE PROCEDURE BILIOPANCREATIC DIVERSION WITH DUODENAL SWITCH (Abdomen) Location: OR06 / OR Surgeons: Joe Granda MD Estimated body mass index is 68.66 kg/m? as calculated from the following: Height as of 03/10/23: 162.6 cm (5' 4 ). Weight as of 03/10/23: 181.4 kg (400 lb). Most recent hematocrit and potassium results: Hematocrit 46.2 01/23/2023 Potassium 4.5 01/23/2023 Relevant Problems ANESTHESIA (+) TONEY on CPAP CARDIO (+) Migraine GI (+) Gastroesophageal reflux disease NEURO-PSYCH (+) Migraine PULMONARY (+) TONEY on CPAP Other (+) Recurrent tonsillitis I - PHYSICAL EVALUATION AIRWAY Patient intubated: No. Tracheostomy tube not present Mallampati: III. TM distance: <3 FB. Neck ROM: full ROM without neurological symptoms. Mouth opening: adequate. Short neck: yes. Thick neck: yes DENTAL Dental findings: edentulous. Additional exam findings: yes. CARDIOVASCULAR Normal cardiovascular observations. PULMONARY Normal pulmonary observations. Breath sounds clear to auscultation. II - ANESTHESIA PLAN ASA Score: 3 Anesthetic Plan: general Airway type: ETT The patient is not a current smoker. NPO Status: adequate Beta Jaylon Monitoring Plan Monitoring plan: standard ASA. Post Procedure Analgesic Plan Postoperative analgesic plan: multimodal analgesia. Informed Consent Anesthetic risks, benefits, alternatives, personnel and consent discussed: yes. Patient / Responsible Democrat agrees to proceed: yes Patient / Surrogate agrees to blood products: Yes DNR status not reviewed with patient and/or family prior to surgery. Significant changes in the patient condition since the History and Physical, not otherwise documented in primary service progress note: no. Potential Anesthesia issues that may suggest increased risk of complications or contraindication to planned procedure: none. Vitals Value Taken Time BP 127/76 03/31/23857 Pulse 83 03/31/23857 Resp 18 03/31/23857 Temp 36.4 ?C (97.5 ?F) 03/31/23857 SpO2 97 % 03/31/23857 Facility-Administered Medications as of 03/31/2023 Medication Dose Route Frequency - [COMPLETED] acetaminophen 1,000 mg tab(s) (TYLENOL) 1,000 mg ORAL ONCE - [COMPLETED] promethazine 12.5 mg tab(s) (PHENERGAN) 12.5 mg ORAL NOW - lactated ringers iv infusion 30 mL/hr INTRAVENOUS CONTINUOUS Outpatient Medications as of 03/31/2023 Medication Sig - ARIPiprazole (ABILIFY) 10 mg tablet Take 10 mg by mouth daily at bedtime. - famotidine (PEPCID) 20 mg tablet Take 20 mg by mouth twice daily as needed. - lamoTRIgine (LAMICTAL) 100 mg tablet Take 100 mg by mouth every morning. - prazosin (MINIPRESS) 1 mg cap Take 1 mg by mouth daily at bedtime. - propranolol (INDERAL) 60 mg tablet Take 60 mg by mouth twice daily. - DULoxetine (CYMBALTA) 60 mg capsule Take 60 mg by mouth once daily. - acetaminophen (TYLENOL) 325 mg tablet Take 650 mg by mouth as needed. I have interviewed and examined the patient. I have reviewed the medical record and/or the pre-anesthesia evaluation, pertinent labs, and test results. This contains updated information obtained within 48 hours of Surgery/Procedure. SIGNATURE: Darrel Conklin MD PATIENT NAME: Susi Borjahip DATE: March 31, 2023 TIME: 9:13 AM CSN: [id number] [facility] [place] BRIEF OP NOTon 03-31-2023 BRIEF OP NOT HNO ID: [id number] Author: Joe Abraham MD Service: General Surgery Author Type: Resident Type: Brief Op Note Filed: 03/31/2023 12:53 PM Note Text: Attestation signed by Joe Granda MD at 03/31/2023 2:33 PM [id number] Joe Granda MD GENERAL SURGERY BRIEF OP NOTE LOG ID: [id number] Surgery/Procedure Date: 03/31/2023 Incision/Procedure Start Time: 11:11 AM Incision Close/Procedure End Time: 12:52 PM Surgeon(s) and Detective Supervisor(s): Surgeon(s) and Role: * Joe Granda MD - Primary * Joe Abraham MD - Resident - Assisting No Additional Staff Procedure(s): Diagnostic laparoscopy Laparoscopic lysis of adhesion EGD Anesthesia: General Findings: aborted DS due to no SB reach, please see operative report for full details Tubes/Drains: None Estimated Blood Loss: 10 cc Specimens: * No specimens in log * Implant: * No implants in log * Wound Classification: Class 1, operative wound clean, non-traumatic, with no inflammation encountered, no break in technique, gastrointestinal and genitor-urinary tracts not entered Complications: None Pre-Op/Pre-Procedure Diagnosis: Pre-Op Diagnosis Codes: * Morbid obesity with BMI of 70 and over, adult (HCC) [E66.01, Z68.45] Post-Op/Post-Procedure Diagnosis: Same SIGNATURE: Joe Abraham MD PATIENT NAME: Susi Ortiz DATE: March 31, 2023 TIME: 12:52 PM PAGER/CONTACT #: [phone] [facility] [place] NURSING PROGon 03-31-2023 NURSING PROG HNO ID: [id number] Author: Susi Ruffin RN Service: Nursing Author Type: Registered Nurse Type: Nursing Progress Note Filed: 03/31/2023 5:08 PM Note Text: Transfer Note: PATIENT NAME: Susi Ortiz Patient Location: [place] [address] [address] Room: [place] [address] Patient transferred in stable condition. Actions taken: Report given/called to [facility]. Orders signed and held were transferred over. [facility] [place] NURSING PROG HNO ID: [id number] Author: Cathleen Hubbard RN Service: Nursing Author Type: Registered Nurse Type: Nursing Progress Note Filed: 03/31/2023 8:48 AM Note Text: PATIENT EDUCATION TOPIC: PROCEDURE / SURGERY: Pre-op Teaching: Logistics Protocols PATIENT NAME: Susi Ortiz PATIENT LOCATION: [place]/ [place] TO LEARN COGNITIVE ABILITY: Alert and oriented MOTIVATION TO LEARN: Eager Interested FAMILY SUPPORT: None - Unavailable/disinterested INSTRUCTION PROVIDED TO: Patient PATIENT LEARNS BEST BY: Verbal Instruction FACTORS AFFECTING LEARNING: None PHYSICAL LIMITATIONS AFFECTING LEARNING: None LEARNING RESPONSE DIAGNOSIS: ADULT: Well Adult PATIENT/FAMILY RESPONSE: Verbalizes understanding of: PRE-OPERATIVE INSTRUCTIONS-Correct action to take to follow pre-operative instructions PRE-PROCEDURE INSTRUCTIONS-Correct action to take to follow pre-procedure instructions METHOD OF INSTRUCTION: Verbal instruction FOLLOW-UP PLAN: Complete - No need for follow-up INSTRUCTIONAL AIDS USED: NA SUPPLEMENTAL MATERIAL PROVIDED TO PATIENT: None REFERRAL (RECOMMENDATION): None Electronically Signed By: Cathleen Hubbard [facility] [place] OPERATIVE NOon 03-31-2023 OPERATIVE NO HNO ID: [id number] Author: Joe Granda MD Service: General Surgery Author Type: Physician Type: Operative Report Filed: 04/09/2023 3:22 PM Note Text: [facility] - Operative Report SUSI ORTIZ : 1985 AGE: 37. SEX: F PATIENT TYPE: I [place]P [facility] [place] LOCATION: [facility] ATTENDING PHYSICIAN: Joe Granda M.D. CSN NUMBER: [id number] DATE OF SURGERY/PROCEDURE: 03/31/2023 INCISION/PROCEDURE START TIME: 11:11 AM INCISION CLOSE/PROCEDURE END TIME: 12:50 PM PREOPERATIVE DIAGNOSIS: 1. Morbid obesity. BMI 68 kg/sq m. 2. History of sleeve gastrectomy. 3. Obstructive sleep apnea. 4. History of sleeve leak. POSTOPERATIVE DIAGNOSIS: 1. Morbid obesity. BMI 68 kg/sq m. 2. History of sleeve gastrectomy. 3. Obstructive sleep apnea. 4. History of sleeve leak. SURGEON: Joe Granda M.D. CHILD PROTECTION SPECIALIST: Joe Abraham. SURGERY/PROCEDURE: Laparoscopic enterolysis. ANESTHESIA: General OPERATIVE INDICATIONS: This 37-year-old woman underwent a comprehensive evaluation for revisional metabolic weight loss surgery. She had a history of sleeve gastrectomy, which was complicated by leak. The operative plan was for conversion to a duodenal switch. OPERATIVE FINDINGS: I did not complete the duodenal switch for 2 reasons. The first was due to her body habitus, she had a foreshortened mesentery and the ileum did not reach up to the area near the duodenum. The second was that she had extensive proximal interloop adhesions that were not amenable to a laparoscopic lysis as well as significant adhesions around the duodenum and stomach. My plan is for her to be on a modified fast for additional weight loss to help with intestinal reach and an open approach after some time when she has achieved some additional weight loss. DESCRIPTION OF PROCEDURE: The patient was positioned supine with her arms out. The abdomen was clipped, prepped, and draped. The abdomen was entered with a 10 mm 0- degree laparoscope within a 12 mm optical trocar in the periumbilical space. There was no trauma from the Veress needle and it was removed. After preinjection with local anesthesia, 2 additional 5 mm ports were placed in the right lower quadrant. General laparoscopy demonstrated significant right upper quadrant and left upper quadrant adhesions of the omentum such that the liver was not visible. General laparoscopy of the small intestine demonstrated a few adhesions on the distal ileum, moderate adhesions in the mid ileum, and significant adhesions in the jejunum. Using a combination of blunt dissection, sharp dissection and LigaSure device, I meticulously took down the omental adhesions to the anterior abdominal wall on the right-hand side taking care to avoid the transverse colon. The liver was identified in the transverse colon and omentum were taken down off the right lobe of the liver using the falciform ligament as a guide for orientation toward the area of the yimi hepatis. Dissection continued medially taking down the transverse colon from the mid abdomen and finally exposing the distal stomach and proximal duodenum. I then elevated the transverse for further exam of the small intestine beginning from the ileocecal valve and proceeding proximally. After 100 cm of ileum, there were multiple interloop adhesions, which were divided sharply and I continued this division up to approximately 250 cm from the ileocecal valve where the interloop adhesions were quite dense and I did not feel even with meticulous dissection that it would be appropriate to continue laparoscopically lysing, then measure the reach from the ileum at this location as well as the locations distally to the level of the duodenum and there was not appropriate reach due to tension on the mesentery and also the duodenum being higher than typical likely secondary to the adhesions and inflammation from her prior sleeve leak. Even with a retrocolic approach, I do not think it would be feasible to perform a duodenal switch today. I asked my colleague, Dr. Cony Soler, to come and he came in without scrubbing in and I demonstrated the current anatomy and he agreed with stopping the procedure and working on her with some preoperative weight loss and then returning in an open fashion if she desired after discussion of her risk-benefit profile with the proposed surgery. I then made a full inspection for hemostasis. I passed the Olympus adult upper endoscope down the esophagus into the stomach to the level of the duodenum. I irrigated over the area of the duodenum dissected and there were no air bubbles indicating negative leak test. Stomach and duodenum were desufflated. The endoscope was removed. The irrigation was suctioned free. The abdomen was desufflated and the ports were removed. The skin was injected with local anesthesia. The skin was closed with 4-0 Monocryl an (more content not included)... Normal [facility] [id number] 03-10-2023 ECG01 Ventricular Rate : 7 5 BPM Atrial Rate : 75 BPM P-R Interval : 172 ms QRS Duration : 96 ms Q-T Interval : 390 ms QTC Calculation(Bazett) : 435 ms Calculated P [place] : 22 degrees Calculated R [place] : 25 degrees Calculated T [place] : 27 degrees NORMAL SINUS RHYTHM NORMAL ECG Confirmed by Penelope Fowler M.D. ([id number]) on 03/13/2023 4:51:16 PM NAME : SUSI ORTIZ PID : [id number] : 1985 Gender : Female Race : ORD : Procedure Date : Mar 10 2023 12:52:21 Edit Date : Mar 13 2023 16:51:17 Diagnosis: NORMAL SINUS RHYTHM NORMAL ECG Confirmed by Penelope Fowler M.D. ([id number]) on 03/13/2023 4:51:16 PM Test Reason : Location : 145 : LOCARD Overread By : Penelope Fowler M.D. Edited By : Penelope Fowler M.D. Referred By : JOE GRANDA Acquired by : Winsome viera [facility] HISTORY PHYSICALon HISTORY PHYSICAL HNO ID: [id number] Author: Shruti Alvarado APRN.PRE SALES TECHNICAL CONSULTANT Service: ? Author Type: Nurse Practitioner Type: HANDP Filed: 03/10/2023 2:11 PM Note Text: HISTORY AND PHYSICAL EXAMINATION SERVICE DATE: 03/10/2023 SERVICE TIME: 1:33 PM PRIMARY CARE PHYSICIAN: Elizabet Simental DO REASON FOR VISIT: Susi Ortiz is a 37 year old female who is scheduled for LAPAROSCOPY SURGICAL GASTRIC RESTRICTIVE PROCEDURE BILIOPANCREATIC DIVERSION WITH DUODENAL SWITCH at the request of Dr. Joe Granda for consultation. My final recommendation will be communicated back to the requesting physician by way of shared medical record or letter. The patient has the following: ACTIVE PROBLEM LIST Thrombocytosis Tonsillar Enlargement Toney On Cpap Gastroesophageal Reflux Disease Ddd (Degenerative Disc Disease), Lumbar Bipolar Affective Disorder (Hcc) Recurrent Tonsillitis Morbid Obesity With Body Mass Index of 60.0-69.9 in Adult (Hcc) Migraine Subjective CHIEF COMPLAINT: Morbid obesity HPI: 37 year old female with my morbid obesity. s/p gastric sleeve in 2017 with leak and re-op gastrotomy and stent extraction shortly after. She reports some ongoing GERD symptoms that have worsened since her bariatric surgery. She is on pantoprazole, pepcid, and carafate with minimal relief. Symptoms are generally worsened with meals but can occur anytime. She admits to some nausea and upper abdominal pain but no changes in bowel movements, major weight changes, or changes in appetite per patient. PAST MEDICAL HISTORY Diagnosis Date Bipolar disorder (HCC) DDD (degenerative disc disease), lumbar Depression Eczema GERD (gastroesophageal reflux disease) Migraine PAST SURGICAL HISTORY Procedure Laterality Date CHOLECYSTECTOMY HX 06/29/2007 LAP SLEEVE GASTRECTOMY 2017 NEUROPLASTY AND/TRANSPOS MEDIAN NRV CARPAL TUNNE 2008;2009 bilateral S PROBE PERC LUMBAR DISCECTOMY 2011; 2012 L4, L5 and L5 S1 SPLENECTOMY TOTAL SEPARATE PROCEDURE 06/29/2014 FAMILY HISTORY Problem Relation Age of Onset Thyroid Mother hypothyrodism Obesity Mother Obesity Father Diabetes Father HTN; Lymphoma Obesity Sister other (Migraines [Other]) Sister Diabetes Paternal Grandmother Stroke Paternal Grandfather None Daughter None Son Diabetes Paternal Uncle SOCIAL HISTORY: Social History Tobacco Use Smoking status: Former Packs/day: 0.50 Years: 5.00 Additional pack years: 0.00 Total pack years: 2.50 Types: Cigarettes Quit date: 12/27/2013 Years since quittin.2 Smokeless tobacco: Never Vaping Use Vaping Use: Never used Substance Use Topics Alcohol use: Not Currently Comment: None since 2012 Drug use: Never Prior to Admission medications as of 03/10/23 1357 Medication Sig Last Dose Taking omeprazole (PRILOSEC) 40 mg capsule TAKE 1 CAPSULE BY MOUTH 30 MINUTES BEFORE morning meal Yes lidocaine (LIDODERM) 5 % Apply 1 Patch as directed every 24 hours. Yes montelukast (SINGULAIR) 10 mg tablet Take 10 mg by mouth daily at bedtime. Yes oxyCODONE IR (ROXICODONE) 5 mg immediate release tablet Take 1 tablet by mouth every 8 hours as needed for pain. Yes pantoprazole DR (PROTONIX) 40 mg tablet Take 1 tablet by mouth once daily. Yes ondansetron (ZOFRAN) 4 mg tablet Take 1 tablet by mouth every 8 hours as needed for nausea/vomiting. Yes senna-docusate (SENNA-S) 8.6-50 mg per tablet Take 1-2 tablets by mouth once daily. Do not take if you have diarrhea, unless otherwise advised. Yes enoxaparin (LOVENOX) 40 mg/0.4 mL Inject 0.4 mL subcutaneously once daily. Yes ARIPiprazole (ABILIFY) 10 mg tablet Take 10 mg by mouth daily at bedtime. Yes famotidine (PEPCID) 20 mg tablet Take 20 mg by mouth twice daily as needed. Yes lamoTRIgine (LAMICTAL) 100 mg tablet Take 100 mg by mouth every morning. Yes prazosin (MINIPRESS) 1 mg cap Take 1 mg by mouth daily at bedtime. Yes propranolol (INDERAL) 60 mg tablet Take 60 mg by mouth twice daily. Yes DULoxetine (CYMBALTA) 60 mg capsule Take 60 mg by mouth once daily. Yes acetaminophen (TYLENOL) 325 mg tablet Take 650 mg by mouth as needed. Yes No medication comments found. ALLERGIES Allergen Reactions Adhes. Ratx-Qzer-Bb* Rash Adhesive Tape-Silic* Rash Augmentin [Amoxicil* Diarrhea Keflex [Cephalexin] Rash, Itching Penicillins Hives Ultram [Tramadol Hc* Itching COVID VACCINATION STATUS: Fully vaccinated REVIEW OF SYSTEMS: PAIN ASSESSMENT: General: No weight loss, malaise or fevers. Neuro: No history of TIA's, stroke, [employer] tumor, impaired sensorium, hemiplegia, paraplegia or quadraplegia. No neurological symptoms or problems. Positive for Migraines on Inderal Respiratory: Positive for TONEY non compliant with CPAP , Negative for No history of current cough or dyspnea, or pneumonia in the past 6 weeks. No history of respiratory/pulmonary symptoms or problems Cardiovascular: No history of HTN requiring medication, n (more content not included)... Normal [facility] CBC W Auto Differential pane l (Bld)on 01-23-2023 Anisocytosis Ql (Bld) Present Normal [facility] Comment on above: Order Comment: Specimen Type: BLOOD SPEC IMENOrdering Facility: [facility] Address: [address] [place] [address] Performed By: #### 5 7021-8 ####[facility] [id number] [place] [address] [place] Basophils (Bld) [#/Vol] 0.14 10*3/uL High <0.11 [facility] Comment on above: Order Comment: Specimen Type: BLOOD SPEC IMENOrdering Facility: [facility] Address: [address] Performed By: #### 5 7021-8 ####[facility] [id number] [address] [place] Basophils/100 WBC (Bld) 1.0 % Normal [facility] Comment on above: Order Comment: Specimen Type: BLOOD SPEC IMENOrdering Facility: [facility] Address: [address] Performed By: #### 5 7021-8 ####[facility] [id number] [place] [address] [place] Differential cell count method Nom (Bld) Manual Normal [facility] Comment on above: Order Comment: Specimen Type: BLOOD SPEC IMENOrdering Facility: [facility] Address: [address] Performed By: #### 5 7021-8 ####[facility] [id number] [place] [address] [place] Eosinophils (Bld) [#/Vol] 0.41 10*3/uL Normal <0.46 [facility] Comment on above: Order Comment: Specimen Type: BLOOD SPEC IMENOrdering Facility: [facility] Address: [address] Performed By: #### 5 7021-8 ####[facility] [id number] [address] [place] Eosinophils/100 WBC (Bld) 3.0 % Normal [facility] Comment on above: Order Comment: Specimen Type: BLOOD SPEC IMENOrdering Facility: [facility] Address: [address] [place] [address] Performed By: #### 5 7021-8 ####[facility] [id number] [place] [id number] [place] Erythrocyte distribution width (RBC) [Ratio] 15.2 % High 11.5-15.0 [facility] Comment on above: Order Comment: Specimen Type: BLOOD SPEC IMENOrdering Facility: [facility] Address: [address] [place] [address] Performed By: #### 5 7021-8 ####[facility] [id number] [place] [address] [place] Hematocrit (Bld) [Volume fraction] 46.2 % High 36.0-46.0 [facility] Comment on above: Order Comment: Specimen Type: BLOOD SPEC IMENOrdering Facility: [facility] Address: [address] [place] [address] Performed By: #### 5 7021-8 ####[facility] [id number] [place] [address] [place] Hemoglobin (Bld) [Mass/Vol] 14.5 g/dL Normal 11.5-15.5 [facility] Comment on above: Order Comment: Specimen Type: BLOOD SPEC IMENOrdering Facility: [facility] Address: [address] [place] [address] Performed By: #### 5 7021-8 ####[facility] [id number] [place] [address] [place] Lymphocytes (Bld) [#/Vol] 5.61 10*3/uL High 1.00-4.00 [facility] Comment on above: Order Comment: Specimen Type: BLOOD SPEC IMENOrdering Facility: [facility] Address: [address] [place], [place] [address] Performed By: #### 5 7021-8 ####[facility] [id number] [place] [address] [place] Lymphocytes/100 WBC (Bld) 41.0 % Normal [facility] Comment on above: Order Comment: Specimen Type: BLOOD SPEC IMENOrdering Facility: [facility] Address: [address] [place] [address] Performed By: #### 5 7021-8 ####[facility] [id number] [address] MCH (RBC) [Entitic mass] 28.2 pg Normal 26.0-34.0 [facility] Comment on above: Order Comment: Specimen Type: BLOOD SPEC IMENOrdering Facility: [facility] Address: [address] Performed By: #### 5 7021-8 ####[facility] [id number] [address] MCHC (RBC) [Mass/Vol] 31.4 g/dL Normal 30.5-36.0 [facility] Comment on above: Order Comment: Specimen Type: BLOOD SPEC IMENOrdering Facility: [facility] Address: [address] Performed By: #### 5 7021-8 ####[facility] [id number] [address] [place] [facility] MCV (RBC) [Entitic vol] 89.9 fL Normal 80.0-100.0 [facility] Comment on above: Order Comment: Specimen Type: BLOOD SPEC IMENOrdering Facility: [facility] Address: [address] [place], [place] [address] Performed By: #### 5 7021-8 ####[facility] [id number] [place] [address] [place] [facility] [place] Monocytes (Bld) [#/Vol] 0.68 10*3/uL Normal <0.87 [facility] Comment on above: Order Comment: Specimen Type: BLOOD SPEC IMENOrdering Facility: [facility] Address: [address] [place], [place] [address] Performed By: #### 5 7021-8 ####[facility] [id number] [place] [address] [place] Monocytes/100 WBC (Bld) 5.0 % Normal [facility] Comment on above: Order Comment: Specimen Type: BLOOD SPEC IMENOrdering Facility: [facility] Address: [address] [place], [place] [address] Performed By: #### 5 7021-8 ####[facility] [id number] [place] [address] [place] Neutrophils (Bld) [#/Vol] 6.84 10*3/uL Normal 1.45-7.50 [facility] Comment on above: Order Comment: Specimen Type: BLOOD SPEC IMENOrdering Facility: [facility] Address: [address] [place] [address] Performed By: #### 5 7021-8 ####[facility] [id number] [place] [address] [place] Neutrophils/100 WBC (Bld) 50.0 % Normal [facility] Comment on above: Order Comment: Specimen Type: BLOOD SPEC IMENOrdering Facility: [facility] Address: [address] [place], [place] [address] Performed By: #### 5 7021-8 ####[facility] [id number] [place] [address] [place] Nucleated RBC (Bld) [#/Vol] 10*3/uL Normal <0.01 [facility] Comment on above: Order Comment: Specimen Type: BLOOD SPEC IMENOrdering Facility: [facility] Address: [address] [place] [address] Performed By: #### 5 7021-8 ####[facility] [id number] [place] [address] [place] Nucleated RBC/100 WBC (Bld) [Ratio] 0.0 /100 WBC Normal [facility] Comment on above: Order Comment: Specimen Type: BLOOD SPEC IMENOrdering Facility: [facility] Address: [address] Performed By: #### 5 7021-8 ####[facility] [id number] [place] [address] [place] Platelet mean volume (Bld) [Entitic vol] 10.1 fL Normal 9.0-12.7 [facility] Comment on above: Order Comment: Specimen Type: BLOOD SPEC IMENOrdering Facility: [facility] Address: [address] Performed By: #### 5 7021-8 ####[facility] [id number] [place] [address] [place] Platelets (Bld) [#/Vol] 624 10*3/uL High 150-400 [facility] Comment on above: Order Comment: Specimen Type: BLOOD SPEC IMENOrdering Facility: [facility] Address: [address] [place], [place] [address] Performed By: #### 5 7021-8 ####[facility] [id number] [place] [address] [place] Platelets Estimate (Bld) [#/Vol] Increased Normal [facility] Comment on above: Order Comment: Specimen Type: BLOOD SPEC IMENOrdering Facility: [facility] Address: [address] [place], [place] Performed By: #### 5 7021-8 ####[facility] [id number] [place] [address] [place] RBC (Bld) [#/Vol] 5.14 10*6/uL Normal 3.90-5.20 [facility] Comment on above: Order Comment: Specimen Type: BLOOD SPEC IMENOrdering Facility: [facility] Address: [address] [place] [id number] Performed By: #### 5 7021-8 ####[facility] [id number] [place] [address] [place] RED CELL MORPH Reviewed: see result s of individual morphologies Normal [facility] Comment on above: Order Comment: Specimen Type: BLOOD SPEC IMENOrdering Facility: [facility] Address: [address] [place] [address] Performed By: #### 5 7021-8 ####[facility] [id number] [place] [address] [place] WBC (Bld) [#/Vol] 13.68 10*3/uL High 3.70-11.00 [facility] Comment on above: Order Comment: Specimen Type: BLOOD SPEC IMENOrdering Facility: [facility] Address: [address] [place] [address] Performed By: #### 5 7021-8 ####[facility] [id number] [place] [address] [place] Comprehensive metabolic 2000 panelon 01-23-2023 Albumin [Mass/Vol] 3.9 g/dL Normal 3.9-4.9 [facility] Comment on above: Order Comment: Specimen Type: BLOOD SPEC IMENOrdering Facility: [facility] Address: [address] [place], [place] Performed By: #### 2 4323-8 ####[facility] [id number] [place] [address] [place] ALP [Catalytic activity/Vol] 101 U/L Normal 34-123 [facility] Comment on above: Order Comment: Specimen Type: BLOOD SPEC IMENOrdering Facility: [facility] Address: [address] [place], [place] Performed By: #### 2 4323-8 ####[facility] [id number] [place] [id number] [place] ALT [Catalytic activity/Vol] 17 U/L Normal 7-38 [facility] Comment on above: Order Comment: Specimen Type: BLOOD SPEC IMENOrdering Facility: [facility] Address: [address] [place] [address] Performed By: #### 2 4323-8 ####[facility] [id number] [place] [address] [place] Anion gap [Moles/Vol] 16 mmol/L Normal 9-18 [facility] [facility] Comment on above: Order Comment: Specimen Type: BLOOD SPEC IMENOrdering Facility: [facility] Address: [address] [place] [address] Performed By: #### 2 4323-8 ####[facility] LABCLIA [id number] [place] [address] [place] AST [Catalytic activity/Vol] 33 U/L Normal 13-35 [facility] Comment on above: Order Comment: Specimen Type: BLOOD SPEC IMENOrdering Facility: [facility] Address: [address] [place], [place] [address] Performed By: #### 2 4323-8 ####[facility] LABCLIA [id number] [place] [address] [place] Bilirubin [Mass/Vol] 0.2 mg/dL Normal 0.2-1.3 [facility] Comment on above: Order Comment: Specimen Type: BLOOD SPEC IMENOrdering Facility: [facility] Address: [address] [place], [place] [address] Performed By: #### 2 4323-8 ####[facility] LABCLIA [id number] [place] [address] [place] Calcium [Mass/Vol] 10.2 mg/dL Normal 8.5-10.2 [facility] Comment on above: Order Comment: Specimen Type: BLOOD SPEC IMENOrdering Facility: [facility] Address: [address] [place] [address] Performed By: #### 2 4323-8 ####[facility] LABCLIA [id number] [place] [address] [place] Chloride [Moles/Vol] 100 mmol/L Normal 97-105 [facility] Comment on above: Order Comment: Specimen Type: BLOOD SPEC IMENOrdering Facility: [facility] Address: [address] [place] [address] Performed By: #### 2 4323-8 ####[facility] LABIA [id number] [place] [address] [place] CO2 [Moles/Vol] 19 mmol/L Low 22-30 [facility] Comment on above: Order Comment: Specimen Type: BLOOD SPEC IMENOrdering Facility: [facility] Address: [address] [place] [address] Performed By: #### 2 4323-8 ####[facility] LABIA [id number] [place] [address] [place] Creatinine [Mass/Vol] 0.64 mg/dL Normal 0.58-0.96 [facility] Comment on above: Order Comment: Specimen Type: BLOOD SPEC IMENOrdering Facility: [facility] Address: [address] [place] [address] Performed By: #### 2 4323-8 ####[facility] LABIA [id number] [address] [place] ESTIMATED GLOMERULAR FILTRATION RATE 117 mL/min/1.73m??? Normal >=60 [facility] Comment on above: Order Comment: Specimen Type: BLOOD SPEC IMENOrdering Facility: [facility] Address: [address] [place] [address] Result Comment: Janet mated Glomerular Filtration Rate (eGFR) is calculated using the 2020 CKD-EPI creatinine equation. This equation utilizes serum creatinine, sex, and age as parameters. The creatinine assay has traceable calibration to isotope dilution-mass spectrometry. Refer to KDIGO guidelines for clinical interpretation. In patients with unstable renal function, e.g. those with acute kidney injury, the eGFR may not accurately reflect actual GFR. Performed By: #### 2 4323-8 ####[facility] LABCLIA [id number] [place] [address] [place] Glucose [Mass/Vol] 73 mg/dL Low 74-99 [facility] Comment on above: Order Comment: Specimen Type: BLOOD SPEC IMENOrdering Facility: [facility] Address: [address] [id number] Result Comment: The [place] Diabetes Association (ADA) provides guidance for cutoff values for fasting glucose and random glucose. The ADA defines fasting as no caloric intake for at least 8 hours. Fasting plasma glucose results between 100 to 125 mg/dL indicate increased risk for diabetes (prediabetes). Fasting plasma glucose results greater than or equal to 126 mg/dL meet the criteria for diagnosis of diabetes. In the absence of unequivocal hyperglycemia, results should be confirmed by repeat testing. In a patient with classic symptoms of hyperglycemia or hyperglycemic crisis, random plasma glucose results greater than or equal to 200 mg/dL meet the criteria for diagnosis of diabetes. Reference: Standards of Medical Care in Diabetes 2016, [place] [employer] Association. Diabetes Care. 2016.39(Suppl 1). Performed By: #### 2 4323-8 ####[facility] LABCLIA [id number] [place] [address] [place] Potassium [Moles/Vol] 4.5 mmol/L Normal 3.7-5.1 [facility] Comment on above: Order Comment: Specimen Type: BLOOD SPEC IMENOrdering Facility: [facility] Address: [address] [place] [address] Performed By: #### 2 4323-8 ####[facility] LABCLIA [id number] [place] [id number] [place] Protein [Mass/Vol] 7.8 g/dL Normal 6.3-8.0 [facility] Comment on above: Order Comment: Specimen Type: BLOOD SPEC IMENOrdering Facility: [facility] Address: [address] [place] [address] Performed By: #### 2 4323-8 ####[facility] LABIA [id number] [address] [place] Sodium [Moles/Vol] 135 mmol/L Low 136-144 [facility] Comment on above: Order Comment: Specimen Type: BLOOD SPEC IMENOrdering Facility: [facility] Address: [address] [place] [address] Performed By: #### 2 4323-8 ####[facility] LABIA [id number] [address] [place] Urea nitrogen [Mass/Vol] 7 mg/dL Normal 7-21 [facility] Comment on above: Order Comment: Specimen Type: BLOOD SPEC IMENOrdering Facility: [facility] Address: [place] [address] Performed By: #### 2 4323-8 ####[facility] [id number] [address] OF [facility] CNPShanon 01-05-2023 CNPN Telephone (JADON) SUSI ORTIZ ([id number]) 1985 F Date Time Provider Department 01/05/23 JOE GRANDA During your visit today, we recorded the following information about you: Pao Hodgson RN 01/05/2023 4:03 PM Signed [facility] SURGERY APPROVAL CALL Received e-mail confirmation of insurance approval for bariatric surgery.Pre-operative call placed to the patient, this RN spoke with patient and agreed upon a surgery date of February 03 2023. Surgical episode request sent to [facility] surgery scheduling. 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 Creatinine level 0.81 Patient instructed to start pre-op 800 calorie total protein liquid diet daily beginning 2 weeks prior to surgery. - Stop all ASA and NSAID products, [place] 3 fish oil, herbal products such as ginko etc. Stop vitamins EXCEPT B COMPLEX- take this up to the day before surgery - Medication List reviewed and patient will contact prescribing physician regarding use of medications while on pre-operative diet. - Patient denies use of estrogen products . Talk with your prescribing MD if you take the following - should be monitored closely during the preoperative liquid diet with most held at the start of the diet given the . ALL of these medications should AT LEAST be held the day prior to surgery. Actos Amaryl Glipizide Glucophage Metformin Anti-obesity medications - stop 1 week before surgery Phentermine Qsymia Contrave Vyvanse Diethylproprion Phendimetrazine Saxenda Wegovy SGLT2 inhibitors should be stopped 3-4 days before surgery - avoid using during the first weeks following bariatric surgery because of the risk of dehydration, Jardiance Farxiga Invokana Sleep apnea requiring treatment? Yes, Patient tolerating C-PAP and advised to bring C-PAP mask and tubing DOS. If you have been diagnosed with moderate/severe sleep apnea you must wear CPAP/BIPAP a minimum of 4 hours nightly 2 weeks before surgery,. It is very important to treat TONEY pre op as well as continuing to use the CPAP post operatively- Do not stop using the machine without prior testing. Patient will require FMLA forms to be completed? Yes, Pt instructed to fax FMLA forms to [phone] and allow 7-10 days for completion. - Deandra video assigned. - All questions and concerns addressed and patient verbalized understanding. - Patient case reviewed. All nutrition appointments completed, psychology clearance obtained, surgeon visit and procedure type verified, medical optimization obtained and all testing complete. 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 Yes, patient has Con ABO. Pao Hodgson RN Allergies As of Date: 01/05/2023 Noted Allergy Reaction ADHES. [id number] 03/13/2015 2 - Rash ADHESIVE TAPE-SILICONES 05/06/2019 2 - Rash AUGMENTIN (AMOXICILLIN-POT CLAVUL*05/06/2019 6 - Diarrhea KEFLEX (CEPHALEXIN) 05/06/2019 2 - Rash 9 - Itching PENICILLINS 05/06/2019 4 - Hives ULTRAM (TRAMADOL HCL) 03/13/2015 9 - Itching Date Reviewed: 12/15/2022 Reviewed by: Mireille Dao RD - Fully Assessed Reason for Visit: Schedule Surgery [1330] Cmt: DS Prescriptions as of 03/10/2023 - omeprazole (PRILOSEC) 40 mg capsule TAKE 1 CAPSULE BY MOUTH 30 MINUTES BEFORE morning meal - lidocaine (LIDODERM) 5 % Apply 1 Patch as directed every 24 hours. - montelukast (SINGULAIR) 10 mg tablet Take 10 mg by mouth daily at bedtime. - oxyCODONE IR (ROXICODONE) 5 mg immediate release tablet Take 1 tablet by mouth every 8 hours as needed for pain. - pantoprazole DR (PROTONIX) 40 mg tablet Take 1 tablet by mouth once daily. - ondansetron (ZOFRAN) 4 mg tablet Take 1 tablet by mouth every 8 hours as needed for nausea/vomiting. - senna-docusate (SENNA-S) 8.6-50 mg per tablet Take 1-2 tablets by mouth once daily. Do not take if you have diarrhea, unless otherwise advised. - enoxaparin (LOVENOX) 40 mg/0.4 mL Inject 0.4 mL subcutaneously once daily. - ARIPiprazole (ABILIFY) 10 mg tablet Take 10 mg by mouth daily at bedtime. - famotidine (PEPCID) 20 mg tablet Take 20 mg by mouth twice daily as needed. - lamoTRIgine (LAMICTAL) 100 mg tablet Take 100 mg by mouth every morning. - prazosin (MINIPRESS) 1 mg cap Take 1 mg by mouth daily at bedtime. - propranolol (INDERAL) 60 mg tablet Take 60 mg by mouth twice daily. - DULoxetine (CYMBALTA) 60 mg capsule Take 60 mg by mouth once daily. - acetaminophen (TYLENOL) 325 mg tablet Take 650 mg by mouth as needed. Problem List As Of Date 01/05/2023 Noted Resolved Thrombocytosis (HCC) [D75.839] 03/13/2015 Tonsillar enlargement [J35.1] 10/04/2015 TONEY on CPAP [G47.33] 10/04/2015 Gastroesophageal reflux disease [K21.9] 10/04/2015 DDD (degenerative disc disease), lumbar [M51.36]10/04/2015 Bipolar affective disorder (HCC) (more content not included)... Normal [facility] XR ankle LT min 3V*on 2022 XR ankle LT min 3V* [facility] [employer] Other XR ankle LT min 3V* [facility] [employer] Other XR ankle LT min 3V* [address] [place] [address] [employer] Other XR ankle LT min 3V* KHUSHBOO Horan [address] [place] [employer] Other XR ankle LT min 3V* XRay Report [employer] Other XR ankle LT min 3V* Signed [employer] Other XR ankle LT min 3V* Patient: Susi Ortiz MR#: M [employer] Other XR ankle LT min 3V* [id number] [employer] Other XR ankle LT min 3V* : 1985 Acct:[id number] [employer] Other XR ankle LT min 3V* Age/Sex: 37 / F ADM Date: 12/13/22 [employer] Other XR ankle LT min 3V* Loc: XDUCLY Room: Type: REG CLI [employer] Other XR ankle LT min 3V* Attending Dr: Linda South [employer]BL[employer] Other XR ankle LT min 3V* Copies to: Linda South [employer] Other XR ankle LT min 3V* Ordering Provider: Linda South APRN [employer] Other XR ankle LT min 3V* Date of Service: 12/13/22 [employer] Other XR ankle LT min 3V* XR/XR ankle LT min 3V*: Acute left ankle pain [employer] Other XR ankle LT min 3V* LEFT ANKLE - 3 views [employer] Other XR ankle LT min 3V* CLINICAL DATA: Patient felt a pop at the ankle while walking this morning. Lateral pain and Placester Other XR ankle LT min 3V* swelling. [employer] Other XR ankle LT min 3V* COMPARISON: LEFT FOOT 11/13/2021 [employer] Other XR ankle LT min 3V* AP, lateral and oblique views were obtained. There is no evidence of fracture or dislocation. [employer] Other XR ankle LT min 3V* The talar dome is intact. Posterior and plantar calcaneal spurs are visualized. There is diffuse [employer] Other XR ankle LT min 3V* soft tissue prominence related to body habitus. [employer] Other XR ankle LT min 3V* XR/XR ankle LT min 3V* [employer] Other XR ankle LT min 3V* IMPRESSION: [employer] Other XR ankle LT min 3V* NO ACUTE BONY FINDINGS. [employer] Other XR ankle LT min 3V* Impression dictated by: Diana Rojas M.D.12/13/2022 10:38 AM [employer] Other XR ankle LT min 3V* Dictation Location: [place] [address] [employer] Other XR ankle LT min 3V* Transcribed By: GENO 12/13/22 1038 [employer] Other XR ankle LT min 3V* Dictated By: Diana Rojas MD 12/13/22 1036 [employer] Other XR ankle LT min 3V* Signed By: [employer] Other XR ankle LT min 3V* 12/13/22 8440 [employer] Other XR ankle LT min 3V* [facility] Main [place] [address] [place] [address] XRay Report Signed Patient: Susi Ortiz MR#: [id number] : 1985 Acct:[id number] Age/Sex: 37 / F ADM Date: 12/13/22 Loc: XDUC Room: Type: [facility] Attending Dr: Linda South APRN Copies to: Linda South APRN Ordering Provider: Linda South APRN Date of Service: 12/13/22 XR/XR ankle LT min 3V*: Acute left ankle pain LEFT ANKLE - 3 views CLINICAL DATA: Patient felt a pop at the ankle while walking this morning. Lateral pain and swelling. COMPARISON: LEFT FOOT 11/13/2021 AP, lateral and oblique views were obtained. There is no evidence of fracture or dislocation. The talar dome is intact. Posterior and plantar calcaneal spurs are visualized. There is diffuse soft tissue prominence related to body habitus. XR/XR ankle LT min 3V* IMPRESSION: NO ACUTE BONY FINDINGS. Impression dictated by: Diana Rojas M.D.12/13/2022 10:38 AM Dictation Location: [place] [address] Transcribed By: [facility] 12/13/22 1038 Dictated By: Diana Rojas MD 12/13/22 1036 Signed By: 12/13/[address] [facility] CNCOon 12-02-2022 CNCO Letter Text Normal [facility] CNPNon 11-18-2022 CNPN Telephone (GENI) SUSI ORTIZ ([id number]) 1985 F Date Time Provider Department 11/18/22 LYUBOV VILLATORO During your visit today, we recorded the following information about you: Lyubov Villatoro LPN 11/28/2022 1:49 PM Addendum Pt called into office concerning faxed test results. Gave pt lab results with recommendations from provider. Pt verbalized understanding. Allergies As of Date: 11/18/2022 Noted Allergy Reaction ADHES. [id number] 03/13/2015 2 - Rash ADHESIVE TAPE-SILICONES 05/06/2019 2 - Rash AUGMENTIN (AMOXICILLIN-POT CLAVUL*05/06/2019 6 - Diarrhea KEFLEX (CEPHALEXIN) 05/06/2019 2 - Rash 9 - Itching PENICILLINS 05/06/2019 4 - Hives ULTRAM (TRAMADOL HCL) 03/13/2015 9 - Itching Date Reviewed: 07/09/2022 Reviewed by: Mireille Dao RD - Fully Assessed Reason for Visit: Patient Question [7767] Prescriptions as of 12/04/2022 - ARIPiprazole (ABILIFY) 10 mg tablet Take 10 mg by mouth daily at bedtime. - busPIRone (BUSPAR) 15 mg tablet Take 15 mg by mouth twice daily. - famotidine (PEPCID) 20 mg tablet Take 20 mg by mouth twice daily as needed. - lamoTRIgine (LAMICTAL) 100 mg tablet Take 100 mg by mouth every morning. - prazosin (MINIPRESS) 1 mg cap Take 1 mg by mouth daily at bedtime. - propranolol (INDERAL) 60 mg tablet Take 60 mg by mouth twice daily. - hydrOXYzine pamoate (VISTARIL) 50 mg capsule Take 50 mg by mouth twice daily. - sucralfate (CARAFATE) 1 gram tablet Take 1 g by mouth four times daily. - DULoxetine (CYMBALTA) 60 mg capsule Take 60 mg by mouth once daily. - pantoprazole DR (PROTONIX) 40 mg tablet Take 40 mg by mouth once daily. - loratadine (CLARITIN) 10 mg tablet Take 10 mg by mouth once daily. - ondansetron orally disintegrating (ZOFRAN ODT) 4 mg disintegrating tablet Take 1 tablet by mouth every 8 hours as needed. - acetaminophen (TYLENOL) 325 mg tablet Take 650 mg by mouth as needed. - dicyclomine (BENTYL) 20 mg tablet Take 20 mg by mouth every 6 hours. - fluticasone (FLONASE) 50 mcg/actuation nasal spray Use 2 Sprays in each nostril once daily. - cetirizine (ZYRTEC) 10 mg tablet Take 10 mg by mouth once daily. - topiramate (TOPAMAX) 100 mg tablet Take 100 mg by mouth once daily. Problem List As Of Date 11/18/2022 Noted Resolved Thrombocytosis (HCC) [D75.839] 03/13/2015 Tonsillar enlargement [J35.1] 10/04/2015 TONEY on CPAP [G47.33, Z99.89] 10/04/2015 Gastroesophageal reflux disease [K21.9] 10/04/2015 DDD (degenerative disc disease), lumbar [M51.36]10/04/2015 Bipolar affective disorder (HCC) [F31.9] 10/04/2015 Recurrent tonsillitis [J03.91] 10/08/2015 Morbid obesity with body mass index of 60.0-69.*02/17/2020 Encounter Status:Closed by LYUBOV VILLATORO on 11/19/22 Normal [facility] CT HEAD WO CONon 08-19-2022 CT HEAD WO CON NONCONTRAST CT SCAN OF THE HEAD CT HEAD WO CON HISTORY: HEADACHE after striking his head on freezer door TECHNIQUE: Multiple axial images are taken from the level the vertex down to the base of the skull without the use of IV contrast. Images were then reconstructed in the sagittal and coronal planes. This exam was performed according to our departmental dose-optimization program which includes use of Automated Exposure Control, adjustment of the mA and/or kV according to patient size and/or use of iterative reconstruction technique. COMPARISON: 01/16/2017 CT head FINDINGS: Brain Parenchyma: No intracranial mass. No intracranial hemorrhage. Singer-white matter within expected limits of normal for patient's age. Posterior fossa: Normal. Midline shift: None Extra-axial fluid collection: None Ventricles: Normal. Mastoid air cells: Normal. Sinuses: Normal. Cranium: No depressed skull fracture. Soft tissues: Normal. Orbits: Normal. IMPRESSION: 1. No noncontrast CT evidence for acute intracranial pathology. 2. If symptoms continue and if clinically indicated, MRI may help better delineate. Electronically authenticated by: MANPREET TORRES Date: 2022-08-19 18:23 Normal [facility] VITAMIN B1 (THIAMINE)on 03-29 Vit. B1, Whole Blood 113.1 nmol/L Normal 66.5-200.0 [facility] Comment on above: Performed By: #### FETIBC, VITAD, B12FOL #### [facility] [address] [address] [address] Gentry Harmon XR foot RT min 3V*on 022 XR foot RT min 3V* [facility] Main [place] [address] [place] [address] XRay Report Signed Patient: Susi Ortiz MR#: [id number] : 1985 Acct:[id number] Age/Sex: 36 / F ADM Date: 04/16/22 Loc: XDUCLY Room: Type: [facility] Attending Dr: Christa JONES Copies to: ROBERT Feliciano Ordering Provider: ROBERT Feliciano Date of Service: 04/16/22 XR/XR foot RT min 3V*: Right foot pain XR foot RT min 3V* 04/16/2022 6:45 PM SIGNS AND SYMPTOMS: Popping sensation in right foot PROTOCOL: Frontal, lateral, and oblique radiographs of the right COMPARISON: 11/04/2018 FINDINGS: The bones are in anatomic alignment. Degenerative changes without evidence of fracture or dislocation. There is diffuse soft tissue swelling. There is plantar and Achilles surface calc aneal spurring. Degenerative changes are noted in the talonavicular joint. XR/XR foot RT min 3V* IMPRESSION: No fracture. There is diffuse soft tissue swelling which is new. Mild degenerative changes are noted at the talonavicular junction with spurring at the plantar and Achilles surface of the calcaneus. Impression dictated by: Gt Ventura M.D.04/16/2022 7:09 PM Dictation Location: [place] [address] Transcribed By: [facility] 04/16/221908 Dictated By: Gt Ventura II, MD 04/16/221903 Signed By: 04/16/221908 Normal [facility] XR foot RT min 3V* [facility] [employer] Other XR foot RT min 3V* [facility] [employer] Other XR foot RT min 3V* [address] [place] [address] [employer] Other XR foot RT min 3V* [place] [address] [employer] Other XR foot RT min 3V* XRay Report [employer] Other XR foot RT min 3V* Signed [employer] Other XR foot RT min 3V* Patient: Susi Ortiz MR#: M [employer] Other XR foot RT min 3V* [id number] [employer] Other XR foot RT min 3V* : 1985 Acct:[id number] [employer] Other XR foot RT min 3V* Age/Sex: 36 / F ADM Date: 04/16/22 [employer] Other XR foot RT min 3V* Loc: XDUCLY Room: Type: [facility] [employer] Other XR foot RT min 3V* Attending Dr: Christa JONES [employer] Other XR foot RT min 3V* Copies to: ROBERT Feliciano [employer] Other XR foot RT min 3V* Ordering Provider: ROBERT Feliciano [facility] [employer] Other XR foot RT min 3V* Date of Service: 04/16/22 [place] [employer] Other XR foot RT min 3V* XR/XR foot RT min 3V*: Right foot pain [facility] [employer] Other XR foot RT min 3V* XR foot RT min 3V* 04/16/2022 6:45 PM [facility] [employer] Other XR foot RT min 3V* SIGNS AND SYMPTOMS: Popping sensation in right foot [facility] [employer] Other XR foot RT min 3V* PROTOCOL: Frontal, lateral, and oblique radiographs of the right [employer] Other XR foot RT min 3V* COMPARISON: 11/04/2018 [employer] Other XR foot RT min 3V* FINDINGS: [employer] Other XR foot RT min 3V* The bones are in anatomic alignment. Degenerative changes without evidence of fracture or [facility] [employer] Other XR foot RT min 3V* dislocation. There is diffuse soft tissue swelling. There is plantar and Achilles surface calc [employer] Other XR foot RT min 3V* aneal spurring. Degenerative changes are noted in the talonavicular joint. [employer] Other XR foot RT min 3V* XR/XR foot RT min 3V* [employer] Other XR foot RT min 3V* IMPRESSION: [employer] Other XR foot RT min 3V* No fracture. [employer] Other XR foot RT min 3V* There is diffuse soft tissue swelling which is new. [employer] Other XR foot RT min 3V* Mild degenerative changes are noted at the talonavicular junction with spurring at the plantar and [employer] Other XR foot RT min 3V* Achilles surface of the calcaneus. [employer] Other XR foot RT min 3V* Impression dictated by: Gt Ventura M.D.04/16/2022 7:09 PM [facility] [employer] Other XR foot RT min 3V* Dictation Location: [place] [address] [employer] Other XR foot RT min 3V* Transcribed By: GENO 04/16/221908 [employer] Other XR foot RT min 3V* Dictated By: Gt Ventura II, MD 04/16/221903 [employer] Other XR foot RT min 3V* Signed By: [employer] Other XR foot RT min 3V* 04/16/221908 [employer] Other CBC AUTO DIFFon 04-11-2022 BASO # 0.1 103/ul Normal 0.0-0.1 [facility] Comment on above: Performed By: #### FETIBC, VITAD, B12FOL #### [facility] [address] [address] [address] Gentry Harmon Basophils/100 WBC (Bld) 0.5 % Normal 0.2-2.0 [facility] Comment on above: Performed By: #### FETIBC, VITAD, B12FOL #### [facility] [address] [address] [address] Gentry Harmon EO # 0.2 103/ul Normal 0.0-0.7 [facility] Comment on above: Performed By: #### FETIBC, VITAD, B12FOL #### [facility] [address] [address] [address] Gentry Harmon Eosinophils/100 WBC (Bld) 0.9 % Normal 0.9-7.0 [facility] Comment on above: Performed By: #### FETIBC, VITAD, B12FOL #### [facility] [address] [place] [address] Dr. Gentry Harmon Erythrocyte distribution width (RBC) [Ratio] 14.3 % Normal 11.0-15.0 [facility] Comment on above: Performed By: #### FETIBC, VITAD, B12FOL #### [facility] [address] [address] [address] Gentry Harmon Hematocrit (Bld) [Volume fraction] 41.9 % Normal 36.0-48.0 [facility] Comment on above: Performed By: #### FETIBC, VITAD, B12FOL #### [facility] [address] [place] [address] Dr. Gentry Harmon Hemoglobin (Bld) [Mass/Vol] 13.4 g/dL Normal 12.0-16.0 [facility] Comment on above: Performed By: #### FETIBC, VITAD, B12FOL #### [facility] [address] [place] [address] Dr. Gentry Harmon IG # 0.06 10e3/ul Critically high 0.00-0.03 [facility] Comment on above: Performed By: #### FETIBC, VITAD, B12FOL #### [facility] [address] [place] [address] Dr. Gentry Harmon IG % 0.3 % Normal 0.0-0.5 [facility] Comment on above: Performed By: #### FETIBC, VITAD, B12FOL #### [facility] [address] [place] [address] Dr. Gentry Harmon LYMPH # 5.9 103/ul Critically high 1.2-3.8 [facility] Comment on above: Performed By: #### FETIBC, VITAD, B12FOL #### [facility] [address] [place] [address] Dr. Gentry Harmon Lymphocytes/100 WBC (Bld) 34.0 % Normal 20.5-60.0 [facility] Comment on above: Performed By: #### FETIBC, VITAD, B12FOL #### [facility] [address] [place] [address] Dr. Gentry Harmon MANUAL DIFF REQ NO Normal [facility] Comment on above: Performed By: #### FETIBC, VITAD, B12FOL #### [facility] [address] [place] [address] Dr. Gentry Harmon MCH (RBC) [Entitic mass] 28.9 pg Normal 26.7-34.0 [facility] Comment on above: Performed By: #### FETIBC, VITAD, B12FOL #### [facility] [address] [place] [address] Dr. Gentry Harmon MCHC (RBC) [Mass/Vol] 32.0 g/dL Normal 29.9-35.2 [facility] Comment on above: Performed By: #### FETIBC, VITAD, B12FOL #### [facility] [address] [place] [address] Dr. Gentry Harmon MCV (RBC) [Entitic vol] 90.3 fL Normal 81.0-99.0 [facility] Comment on above: Performed By: #### FETIBC, VITAD, B12FOL #### [facility] [address] [place] [address] Dr. Gentry Harmon MONO # 1.3 103/ul Critically high 0.3-0.8 [facility] Comment on above: Performed By: #### FETIBC, VITAD, B12FOL #### [facility] [address] [place] [address] Dr. Gentry Harmon Monocytes/100 WBC (Bld) 7.8 % Normal 1.7-12.0 [facility] Comment on above: Performed By: #### FETIBC, VITAD, B12FOL #### [facility] [address] [place] [address] Dr. Gentry Harmon NEUT # 9.8 103/ul Critically high 1.4-6.5 [facility] Comment on above: Performed By: #### FETIBC, VITAD, B12FOL #### [facility] [address] [address] [address] Gentry Harmon Neutrophils/100 WBC (Bld) 56.5 % Normal 43.0-75.0 [facility] Comment on above: Performed By: #### FETIBC, VITAD, B12FOL #### [facility] [address] [place] [address] Dr. Gentry Harmon Platelet mean volume (Bld) [Entitic vol] 9.3 fL Critically low 9.5-13.5 [facility] Comment on above: Performed By: #### FETIBC, VITAD, B12FOL #### [facility] [address] [place] [address] Dr. Gentry Harmon PLT 522 103/ul Critically high 150-450 [facility] Comment on above: Performed By: #### FETIBC, VITAD, B12FOL #### [facility] [address] [place] [address] Dr. Gentry Harmon RBC 4.64 106/ul Normal 4.20-5.40 [facility] Comment on above: Performed By: #### FETIBC, VITAD, B12FOL #### [facility] [address] [place] [address] Dr. Gentry Harmon WBC 17.3 103/ul Critically high 4.0-11.0 [facility] Comment on above: Performed By: #### FETIBC, VITAD, B12FOL #### [facility] [address] [place] [address] Dr. Gentry Harmon IRON AND TIBCon 04-11-2022 % SATURATION 15.7 % Normal [facility] Comment on above: Performed By: #### FETIBC, VITAD, B12FOL #### [facility] [address] [place] [address] Dr. Gentry Harmon Iron [Mass/Vol] 58.0 ug/dL Normal 50.0-170.0 [facility] Comment on above: Performed By: #### FETIBC, VITAD, B12FOL #### [facility] [address] [address] [address] Gentry Harmon TIBC DIRECT 369.0 ug/dL Normal 250.0-450. 0 [facility] Comment on above: Performed By: #### FETIBC, VITAD, B12FOL #### [facility] [address] [address] [address] Gentry Harmon PREALBUMINon 04-11-2022 Prealbumin [Mass/Vol] 27.8 mg/dL Normal 20.9-45.5 [facility] Comment on above: Performed By: #### CMP, PREALB #### [facility] [address] [place] [address] Dr. Gentry Harmon PROF 14(COMP METB)on 022 Albumin [Mass/Vol] 3.3 g/dL Critically low 3.4-5.0 [facility] Comment on above: Performed By: #### CMP, PREALB #### [facility] [address] [place] [address] Dr. Gentry Harmon Albumin/Globulin [Mass ratio] 0.8 {ratio} Normal [facility] Comment on above: Performed By: #### CMP, PREALB #### [facility] [address] [place] [address] Dr. Gentry Harmon ALP [Catalytic activity/Vol] 89 U/L Normal 46-116 [facility] Comment on above: Performed By: #### CMP, PREALB #### [facility] [address] [place] [address] Dr. Gentry Harmon ALT [Catalytic activity/Vol] 16 U/L Normal 14-59 [facility] Comment on above: Performed By: #### CMP, PREALB #### [facility] [address] [place] [address] Dr. Gentry Harmon Anion gap [Moles/Vol] 11.3 mmol/L Normal [facility] Comment on above: Performed By: #### CMP, PREALB #### [facility] [address] [place] [address] Dr. Gentry Harmon AST [Catalytic activity/Vol] 11 U/L Critically low 15-37 [facility] Comment on above: Performed By: #### CMP, PREALB #### [facility] [address] [place] [address] Dr. Gentry Harmon Bilirubin [Mass/Vol] 0.1 mg/dL Critically low 0.2-1.0 [facility] Comment on above: Performed By: #### CMP, PREALB #### [facility] [address] [place] [address] Dr. Gentry Harmon Calcium [Mass/Vol] 8.8 mg/dL Normal 8.5-10.1 [facility] Comment on above: Performed By: #### CMP, PREALB #### [facility] [address] [place] [address] Dr. Gentry Harmon Chloride [Moles/Vol] 103 mmol/L Normal 98-107 [facility] Comment on above: Performed By: #### CMP, PREALB #### [facility] [address] [place] [address] Dr. Gentry Harmon CO2 [Moles/Vol] 25.6 mmol/L Normal 21.0-32.0 [facility] Comment on above: Performed By: #### CMP, PREALB #### [facility] [address] [place] [address] Dr. Gentry Harmon Creatinine [Mass/Vol] 0.81 mg/dL Normal 0.55-1.02 [facility] Comment on above: Performed By: #### CMP, PREALB #### [facility] [address] [place] [address] Dr. Gentry Harmon EGFR-AF BRUNEIAN >60 Normal >=60 [facility] Comment on above: Performed By: #### CMP, PREALB #### [facility] [address] [place] [address] Dr. Gentry Harmon EGFR-NON AF BRUNEIAN >60 Normal >=60 [facility] Comment on above: Performed By: #### CMP, PREALB #### [facility] [address] [place] [address] Dr. Gentry Harmon Globulin (S) [Mass/Vol] 4.4 g/dL Normal [facility] Comment on above: Performed By: #### CMP, PREALB #### [facility] [address] [place] [address] Dr. Gentry Harmon Glucose [Mass/Vol] 101 mg/dL Normal 74-106 [facility] Comment on above: Performed By: #### CMP, PREALB #### [facility] [address] [place] [address] Dr. Gentry Harmon Potassium [Moles/Vol] 3.9 mmol/L Normal 3.5-5.1 [facility] Comment on above: Performed By: #### CMP, PREALB #### [facility] [address] [place] [address] Dr. Gentry Harmon Protein [Mass/Vol] 7.7 g/dL Normal 6.4-8.2 [facility] Comment on above: Performed By: #### CMP, PREALB #### [facility] [address] [place] [address] Dr. Gentry Harmon Sodium [Moles/Vol] 136 mmol/L Normal 136-145 [facility] Comment on above: Performed By: #### CMP, PREALB #### [facility] [address] [place] [address] Dr. Gentry Harmon Urea nitrogen [Mass/Vol] 10.0 mg/dL Normal 7.0-18.0 [facility] Comment on above: Performed By: #### CMP, PREALB #### [facility] [address] [place] [address] Dr. Gentry Harmon Urea nitrogen/Creatin ine [Mass ratio] 12.3 mg/mg Normal [facility] Comment on above: Performed By: #### CMP, PREALB #### [facility] [address] [place] [address] Dr. Gentry Harmon VIT B12 AND FOLATEon 022 Cobalamin (Vitamin B12) [Mass/Vol] 226.0 pg/mL Normal 193.0-986. 0 [facility] Comment on above: Performed By: #### FETIBC, VITAD, B12FOL #### [facility] [address] [address] [address] Gentry Harmon FOLATE 3.20 ng/mL Critically low 8.60-58.90 [facility] Comment on above: Performed By: #### FETIBC, VITAD, B12FOL #### [facility] [address] [address] [address] Gentry Harmon VITAMIN D 25 OHon 04-11-2022 VIT D 25-OH 23.6 ng/mL Normal [facility] Comment on above: Performed By: #### FETIBC, VITAD, B12FOL #### [facility] [address] [address] [address] Gentry Harmon VIT D RANGES SEE BELOW Normal [facility] Comment on above: Result Comment: <20 ng/mL Vit D deficien t 20 - <30 ng/mL Vit D insufficient 30 - 100 ng/mL Vit D sufficient >100 ng/mL Potential Toxicity Performed By: #### F ETIBC, VITAD, B12FOL #### [facility] [address] [address] [address] Gentry Harmon XR LSPINE 2_3 VIEWSon 2021 XR LSPINE 2_3 VIEWS EXAM: XR LSPINE 2_3 VIEWS HISTORY: Back pain COMPARISON: Lumbar spine x-rays 09/19/2021 TECHNIQUE: 4 views FINDINGS: Maintenance of the normal lumbar lordosis.. Vertebral body heights and alignments exhibit no fracture or listhesis. Intervertebral disc space heights are unremarkable. Facet arthrosis at L3-L4, L4-L5 and L5-S1. Surgical clips within the bilateral upper quadrants of the abdomen. IMPRESSION: Facet arthropathy with no acute abnormality Electronically authenticated by: ESTELLA ALVES Date: 2022-04-01 19:22 Normal [facility] CT ABD/PEL W IVCONon 022 CT ABD/PEL W IVCON * * *Final Report* * * DATE OF EXAM: Feb 12 2022 2:57PM [facility] 0530 - CT ABD/PEL W IVCON / PROCEDURE REASON: multiple diagnoses * * * * Physician Interpretation * * * * EXAMINATION: CT ABDOMEN AND PELVIS WITH IV CONTRAST CLINICAL HISTORY: History of sleeve gastrectomy Gastric fistula . TECHNIQUE: CT of the abdomen and pelvis was performed using standard technique, scanning from just above the dome of the diaphragm to the iliac crest. Contrast: IV: 150 ml of Omnipaque 350 Oral: 250 ml of Omni 350 10-25ml diluted with water CT Radiation dose: Integrated Dose-length product (DLP) for this visit = 1638 mGy*cm. CT Dose Reduction Employed: Automated exposure control(AEC) and iterative recon COMPARISON: None. Abdomen / Pelvis: Liver: No focal hepatic lesions. Spleen: Splenectomy. Pancreas: No focal pancreatic lesions. Adrenals: No mass. Biliary: No bile duct dilation. Status post cholecystectomy. Kidneys: Symmetric nephrograms bilaterally without hydronephrosis. Vasculature: The celiac axis and SMA are patent. The portal vein and branches, splenic vein, SMV, and hepatic veins are patent. Abdominal aorta is normal in caliber. GI tract: Sleeve gastrectomy. Small gastric remnant near the gastric fundus. No bowel obstruction. Small hiatal hernia. Normal appendix. Lymph nodes: No lymphadenopathy by CT size criteria. Mesentery/Peritoneum: No ascites, fluid collection, or mass. Pelvis: IUD in the endometrial canal. 3.5 cm left ovarian cyst is a functional cyst. Urinary bladder is unremarkable. Bones/Soft tissues: No aggressive osseous lesions. Lower thorax: Lower lungs are clear. Manager Asset Management (topogram) images: Unremarkable. IMPRESSION: No acute process in the abdomen or pelvis. Internal Audit Director: DENISE Transcribe Date/Time: Feb 12 2022 3:04P Dictated by : MARIELA GRECO MD This examination was interpreted and the report reviewed and electronically signed by: MARIELA GRECO MD on Feb 12 2022 3:19PM EST [id number] Normal [facility] NURSING PROGon 02-12-2022 NURSING PROG HNO ID: [id number] Author: Elizabeth Stephens RN Service: Radiology Author Type: Registered Nurse Type: Nursing Progress Note Filed: 02/12/2022 2:42 PM Note Text: Radiology Service Progress Note DATE OF SERVICE: February 12, 2022 TIME: 2:30 PM PATIENT WEIGHT: 395LBS PATIENT IDENTITY VERIFICATION COMPLETED USING TWO (2) STANDARD IDENTIFIERS: Name and Date of confirmed by patient verbally and Name and Date of confirmed by identification band. FALL SCREENING: Has the patient had 2 falls in the last year or 1 fall with injury or currently using an Ambulatory Assistive Device (Walker, Cane, Wheelchair, Crutches, etc.)? No PATIENT GENDER DATA: Female. status: : No status: NO. ALLERGIES: Reviewed and unchanged CONTRAST ALLERGY: No EXAM: CT -CONTRAST INDUCED NEPHROPATHY RISK FACTORS: Not applicable CREATININE: Creatinine Date Value Ref Range Status 10/04/2015 0.71 0.70 - 1.40 mg/dL Final 09/06/2015 0.82 0.70 - 1.40 mg/dL Final Creatinine, Whole Blood (iSTAT) Date Value Ref Range Status 03/13/2015 0.80 0.70 - 1.40 mg/dL Final eGFR-All Other Races Date Value Ref Range Status 10/04/2015 >60 . Final Comment: eGFR (Estimated GFR) Units of measure: mL/min/1.73 meters squared eGFR is derived from the reexpressed MDRD Study equation using the following parameters: serum creatinine, age, gender and race. The creatinine assay has been calibrated to be traceable to IDMS. An eGFR <60 mL/min/1.73m2 for >3 months is consistent with chronic kidney disease. Refer to KDOQI guidelines for clinical interpretation. In patients with unstable renal function, e.g. those with acute kidney injury, the eGFR may not accurately reflect actual GFR. eGFR- Date Value Ref Range Status 10/04/2015 >60 Final P.O.C.T. RESULTS: N/A February 12, 2022 TREATMENT: N/A IV SITE: Ambulatory: A peripheral IV was started in the Left antecubital site with a Angio cath: 22 gauge.difusics IV SITE APPEARANCE: Clean,Dry and Intact SIGNATURE: Eilzabeth Stephens RN PATIENT NAME: Susi Milesenship DATE: February 12, 2022 TIME: 2:30 PM [facility] ANES POSTPROC EVALon 022 ANES POSTPROC EVAL HNO ID: [id number] Author: Carolina Pink MD Service: Anesthesiology Author Type: Physician Type: Anesthesia Postprocedure Evaluation Filed: 12/18/2021 3:11 PM Note Text: POST ANESTHESIA EVALUATION NOTE : 1985 Procedure Summary Date: 12/18/21 Room / Location: Procedures Anesthesia Start: 1214 Anesthesia Stop: 1230 Procedure: EGD DIAGNOSTIC Diagnosis: TONEY on CPAP Gastroesophageal reflux disease, unspecified whether esophagitis present S/P laparoscopic sleeve gastrectomy (Epigastric abdominal pain) Scheduled Providers: Joe Granda MD; Carolina Pink MD; Sami Murcia APRN.MELT SUPERVISOR Responsible Provider: Carolina Pink MD Anesthesia Type: MAC ASA Status: 3 Anesthesia Type: MAC Last Vitals Vitals Value Taken Time BP 129/95 12/18/21 1234 Temp 36.1 ?C (96.9 ?F) 12/18/21 1234 HR SpO2 106 12/18/21 1234 Resp 20 12/18/21 1234 SpO2 97 % 12/18/21 1238 Vitals shown include unvalidated device data. Post Anesthesia Patient Status Patient Evaluation: PACU. PACU/ICU Patient Condition: stable. Anticipated Disposition: phase 2 then home. Neurological Status: aware and responsive. Pulmonary Status: breathing comfortably on room air Airway Control: returned to baseline unsupported. Cardiovascular Status: stable. Pain Management: clinically adequate - multimodal analgesia pain management approach Postoperative Hydration: acceptable. Intraoperative Events: no significant anesthesia events Recommendation: continue current plan of care. Anesthesia Observations No Documentation SIGNATURE: Carolina Pink MD PATIENT NAME: Susi Ortiz DATE: December 18, 2021 TIME: 3:11 PM CSN: [id number] Normal [facility] ANES PRE-OPon 12-18-2021 ANES PRE-OP HNO ID: [id number] Author: Carolina Pink MD Service: Anesthesiology Author Type: Physician Type: Anesthesia Preprocedure Evaluation Filed: 12/18/2021 11:23 AM Note Text: ANESTHESIOLOGY DAY OF SURGERY NOTE : 1985 Procedure Information Date/Time: 12/18/21 1115 Scheduled providers: Joe Granda MD; Carolina Pink MD; Sami Murcia APRN.MELT SUPERVISOR Procedure: EGD DIAGNOSTIC Location: Procedures Estimated body mass index is 66.09 kg/m? as calculated from the following: Height as of 12/05/21: 162.6 cm (5' 4 ). Weight as of 12/05/21: 174.6 kg (385 lb). Most recent hematocrit and potassium results: Hematocrit 43.5 10/04/2015 Potassium 3.8 10/04/2015 Relevant Problems ANESTHESIA (+) TONEY on CPAP GI (+) Gastroesophageal reflux disease PULMONARY (+) TONEY on CPAP Other (+) Morbid obesity with body mass index of 60.0-69.9 in adult (HCC) (+) Recurrent tonsillitis I - PHYSICAL EVALUATION AIRWAY Patient intubated: No. Tracheostomy tube not present Mallampati: III. TM distance: >3 FB. Neck ROM: full ROM without neurological symptoms. Mouth opening: adequate. Short neck: yes. Thick neck: yes DENTAL Normal dental observations. Dental findings: teeth intact. Additional exam findings: yes. CARDIOVASCULAR Rhythm: regular Rate: normal PULMONARY Breath sounds clear to auscultation. ABDOMINAL Obese: obesity present. II - ANESTHESIA PLAN ASA Score: 3 Anesthetic Plan: MAC NPO Status: adequate Monitoring plan: Standard ASA. Postoperative analgesic plan: parenteral or oral opioids and multimodal analgesia. Informed Consent Anesthetic risks, benefits, alternatives, personnel and consent discussed: yes. Patient / Responsible Democrat agrees to proceed: yes Patient / Surrogate agrees to blood products: blood products not planned DNR status not reviewed with patient and/or family prior to surgery. Significant changes in the patient condition since the History and Physical, not otherwise documented in primary service progress note: no. Potential Anesthesia issues that may suggest increased risk of complications or contraindication to planned procedure:. BMI 66 Vitals Value Taken Time BP 150/106 12/18/21 1104 Pulse 106 12/18/21 1104 Resp 16 12/18/21 1104 Temp 36 ?C (96.8 ?F) 12/18/21 1104 SpO2 100 % 12/18/21 1104 Outpatient Medications as of 12/18/2021 Medication Sig - ARIPiprazole (ABILIFY) 10 mg tablet Take 10 mg by mouth daily at bedtime. - busPIRone (BUSPAR) 15 mg tablet Take 15 mg by mouth twice daily. - famotidine (PEPCID) 20 mg tablet Take 20 mg by mouth twice daily as needed. - lamoTRIgine (LAMICTAL) 100 mg tablet Take 100 mg by mouth every morning. - prazosin (MINIPRESS) 1 mg cap Take 1 mg by mouth daily at bedtime. - propranolol (INDERAL) 60 mg tablet Take 60 mg by mouth twice daily. - hydrOXYzine pamoate (VISTARIL) 50 mg capsule Take 50 mg by mouth twice daily. - sucralfate (CARAFATE) 1 gram tablet Take 1 g by mouth four times daily. - DULoxetine (CYMBALTA) 60 mg capsule Take 60 mg by mouth once daily. - pantoprazole DR (PROTONIX) 40 mg tablet Take 40 mg by mouth once daily. - loratadine (CLARITIN) 10 mg tablet Take 10 mg by mouth once daily. - acetaminophen (TYLENOL) 325 mg tablet Take 650 mg by mouth as needed. - dicyclomine (BENTYL) 20 mg tablet Take 20 mg by mouth every 6 hours. - fluticasone (FLONASE) 50 mcg/actuation nasal spray Use 2 Sprays in each nostril once daily. - cetirizine (ZYRTEC) 10 mg tablet Take 10 mg by mouth once daily. - topiramate (TOPAMAX) 100 mg tablet Take 100 mg by mouth once daily. - ondansetron orally disintegrating (ZOFRAN ODT) 4 mg disintegrating tablet Take 1 tablet by mouth every 8 hours as needed. No current facility-administered medications on file as of 12/18/2021. I have interviewed and examined the patient. I have reviewed the medical record and/or the pre-anesthesia evaluation, pertinent labs, and test results. This contains updated information obtained within 48 hours of Surgery/Procedure. SIGNATURE: Carolina Pink MD PATIENT NAME: Susi Milesenship DATE: December 18, 2021 TIME: 11:22 AM CSN: [id number] Normal [facility] EGD DIAGNOSTICon 12-18-2021 [facility] Upper GI endoscopyon 022 Upper GI endoscopy [facility] Gastrointestinal Endoscopy Patient Name: Susi Ortiz Procedure Date: 12/18/2021 12:11 PM Date of : 1985 Admit Type: Outpatient Age: 36 Room: PROCEDURE A Gender: Female Note Status: Finalized Attending MD: Joe Granda MD Procedure: Upper GI endoscopy Indications: Epigastric abdominal pain, Heartburn, Failure to respond to medical treatment, Postop assessment of anastomotic leak following bariatric surgery Providers: Joe Granda MD Patient Profile: This is a 36 year old female. Refer to note in patient chart for documentation of history and physical. Patient has symptoms of chronic epigastric abdominal pain, chronic heartburn and chronic nausea. She is status post laparoscopic sleeve gastrectomy within the past several years. Referring Physician: Jayshree Huffman CNP (Referring MD) Medicines: Monitored Anesthesia Care Complications: No immediate complications. Requesting Provider: Procedure: Pre-Anesthesia Assessment: - Prior to the procedure, a History and Physical was performed, and patient medications and allergies were reviewed. The patient is competent. The risks and benefits of the procedure and the sedation options and risks were discussed with the patient. All questions were answered and informed consent was obtained. Patient identification and proposed procedure were verified by the physician, the nurse and the library services dean in the pre-procedure area in the endoscopy suite. Mental Status Examination: alert and oriented. Airway Examination: normal oropharyngeal airway and neck mobility. Respiratory Examination: clear to auscultation. CV Examination: normal. Prophylactic Antibiotics: The patient does not require prophylactic antibiotics. Prior Anticoagulants: The patient has taken no previous anticoagulant or antiplatelet agents. ASA Grade Assessment: III - A patient with severe systemic disease. After reviewing the risks and benefits, the patient was deemed in satisfactory condition to undergo the procedure. The anesthesia plan was to use monitored anesthesia care (MAC). Immediately prior to administration of medications, the patient was re-assessed for adequacy to receive sedatives. The heart rate, respiratory rate, oxygen saturations, blood pressure, adequacy of pulmonary ventilation, and response to care were monitored throughout the procedure. The physical status of the patient was re-assessed after the procedure. After obtaining informed consent, the endoscope was passed under direct vision. Throughout the procedure, the patient's blood pressure, pulse, and oxygen saturations were monitored continuously. The Endoscope was introduced through the mouth, and advanced to the second part of duodenum. The upper GI endoscopy was accomplished without difficulty. The patient tolerated the procedure well. Moderate Sedation: MAC anesthesia was administered by the anesthesia team. Total Procedure Duration: 0 hours 3 minutes 43 seconds Findings: The esophagus was normal. Bilious fluid was found in the stomach. Evidence of a sleeve gastrectomy was found in the stomach. This was characterized by redundant proximal fundus and diverticulum in antrum staple line. Impression: - Normal esophagus. - Bilious gastric fluid. - A sleeve gastrectomy was found, characterized by redundant proximal fundus and diverticulum in antrum staple line. - No specimens collected. Recommendation: - Discharge patient to home. - Resume previous diet. - Continue present medications. - Await pathology results. - Return to Bariatric clinic as previously scheduled. Procedure Code(s): --- Professional --- 76725, Esophagogastroduodenoscopy, flexible, transoral; diagnostic, including collection of specimen(s) by brushing or washing, when performed (separate procedure) Diagnosis Code(s): --- Professional --- Z98.84, Bariatric surgery status R10.13, Epigastric pain R12, Heartburn K95.89, Other complications of other bariatric procedure CPT copyright 2019 [employer]. All rights reserved. The codes documented in this report are preliminary and upon development manager review may be revised to meet current compliance requirements. Attending Participation: I personally performed the entire procedure. Scope In: 12:23:05 PM Scope Out: 12:26:48 PM MD Joe Gomez MD 12/18/2021 12:32:03 PM This report has been signed electronically by Joe Granda MD Number of Addenda: 0 Note Initiated On: 12/18/2021 12:11 PM Estimated Blood Loss: Estimated blood loss: none. [facility] HISTORY PHYSICALon HISTORY PHYSICAL HNO ID: [id number] Author: Melissa Olivas PA-C Service: ? Author Type: Physician Detective Supervisor Type: HANDP Filed: 12/10/2021 1:13 PM Note Text: HISTORY AND PHYSICAL EXAMINATION SERVICE DATE: 12/05/2021 SERVICE TIME: 1:12 PM PRIMARY CARE PHYSICIAN: Geneva Estrada, PRE SALES TECHNICAL CONSULTANT, PRE SALES TECHNICAL CONSULTANT This is a virtual visit using alternative video platform. It required patient-provider interaction for the medical decision making as documented below. REASON FOR VISIT: Susi Ortiz is a 36 year old female who is scheduled for EGD at the request of Dr. Joe Granda for consultation. My final recommendation will be communicated back to the requesting physician by way of shared medical record or letter. Subjective The patient has the following: ACTIVE PROBLEM LIST Thrombocytosis Tonsillar Enlargement Toney On Cpap Gastroesophageal Reflux Disease Ddd (Degenerative Disc Disease), Lumbar Bipolar Affective Disorder (Hcc) Recurrent Tonsillitis Morbid Obesity With Body Mass Index of 60.0-69.9 in Adult (Hcc) COVID-19 Immunization Status Overdue - COVID-19 VACCINE (3 - Booster for Pfizer series) Overdue since 12/01/2021 07/03/2021 Imm Admin: COVID-19 vaccine, age 12+ yr (PFIZER-BIONTECH - PURPLE TOP) 06/13/2021 Imm Admin: COVID-19 vaccine, age 12+ yr (PFIZER-BIONTECH - PURPLE TOP) Patient reports being fully vaccinated against COVID-19. CHIEF COMPLAINT: history of bariatric surgery HPI: Susi Ortiz is a 36 year old female who presents s/p gastric sleeve in 2017 with leak and re-op gastrotomy and stent extraction shortly after. She reports some ongoing GERD symptoms that have worsened since her bariatric surgery. She is on pantoprazole, pepcid, and carafate with minimal relief. Symptoms are generally worsened with meals but can occur anytime. She admits to some nausea and upper abdominal pain but no changes in bowel movements, major weight changes, or changes in appetite per patient. REVIEW OF SYSTEMS: General: No weight loss, malaise or fevers. Neurological: Denies dizziness or lightheadedness Negative for: headaches, seizures, TIA and strokes. Respiratory: Positive for: obstructive sleep apnea and CPAP/BiPAP noncompliant. Negative for: asthma, COPD, current cough, dyspnea and home oxygen. Cardiovascular: Denies palpitations or syncope Negative for: chest pain, DVT/PE, hyperlipidemia, hypertension and murmur/valvular heart disease. GI: See HPI. Negative for: liver disease. : Negative for: dysuria, frequent urination and hematuria. 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 Hematology: +hx thrombocytosis s/p splenectomy 2014 Negative for: anemia and chronic anti-coagulation/platelet meds. Oncology: No history of CA metastasis, chemo within 30 days, or radiotherapy within 90 days. No history of oncological symptoms or problems. Psych: +bipolar affective per chart Musculoskeletal: Positive for: back pain (occasional, s/p lumbar surgeries). Skin: Negative for lesions, rash and itching. PAST MEDICAL HISTORY Diagnosis Date - Bipolar disorder (HCC) - DDD (degenerative disc disease), lumbar - Depression - Eczema - GERD (gastroesophageal reflux disease) - Migraine PAST SURGICAL HISTORY Procedure Laterality Date - CHOLECYSTECTOMY HX 06/29/2007 - LAP SLEEVE GASTRECTOMY 2017 - NEUROPLASTY AND/TRANSPOS MEDIAN NRV CARPAL TUNNE 2008;2009 bilateral - S PROBE PERC LUMBAR DISCECTOMY 2011; 2012 L4, L5 and L5 S1 - SPLENECTOMY TOTAL SEPARATE PROCEDURE 06/29/2014 FAMILY HISTORY Problem Relation Age of Onset - Thyroid Mother hypothyrodism - Obesity Mother - Obesity Father - Diabetes Father HTN; Lymphoma - Obesity Sister - other (Migraines [Other]) Sister - Diabetes Paternal Grandmother - Stroke Paternal Grandfather - None Daughter - None Son - Diabetes Paternal Uncle Social History Tobacco Use - Smoking status: Former Smoker Packs/day: 0.50 Years: 5.00 Pack years: 2.50 Types: Cigarettes Quit date: 12/27/2013 Years since quittin.9 - Smokeless tobacco: Never Used Vaping Use - Vaping Use: Never used Substance Use Topics - Alcohol use: Not Currently Comment: None since 2012 - Drug use: Never Prior to Admission medications as of 12/05/21 1319 Medication Sig Last Dose Taking ARIPiprazole (ABILIFY) 10 mg tablet Take 10 mg by mouth daily at bedtime. Taking Yes busPIRone (BUSPAR) 15 mg tablet Take 15 mg by mouth twice daily. Taking Yes famotidine (PEPCID) 20 mg tablet Take 20 mg by mouth twice daily as needed. Taking Yes lamoTRIgine (LAMICTAL) 100 mg tablet Take 100 mg by mouth every morning. Taking Yes prazosin (MINIPRESS) 1 mg cap Take 1 mg by mouth daily at bedtime. Taking Yes propranolol (INDERAL) 60 mg tablet Take 60 mg by mouth twice daily. Taking Yes hydrOXYzine pamoate (VISTARIL) 50 mg capsule Take 50 mg by mouth twice daily. Britt (more content not included)... [facility] XR foot LT min 3V*on 022 XR foot LT min 3V* [facility] [employer] Other XR foot LT min 3V* [facility] [employer] Other XR foot LT min 3V* [facility] [employer] Other XR foot LT min 3V* KHUSHBOO Horan [address] [employer] Other XR foot LT min 3V* XRay Report [employer] Other XR foot LT min 3V* Signed [employer] Other XR foot LT min 3V* Patient: Susi Ortiz MR#: M [employer] Other XR foot LT min 3V* [id number] [employer] Other XR foot LT min 3V* : 1985 Acct:[id number] [employer] Other XR foot LT min 3V* Age/Sex: 36 / F ADM Date: 11/13/21 [employer] Other XR foot LT min 3V* Loc: [facility] Room: Type: REG I [employer] Other XR foot LT min 3V* Attending Dr: Christa JONES [employer] Other XR foot LT min 3V* Ordering Provider: ROBERT Feliciano [employer] Other XR foot LT min 3V* Date of Service: 11/13/21 [employer] Other XR foot LT min 3V* XR/XR foot LT min 3V*: Left foot pain [employer] Other XR foot LT min 3V* Copies to: ROBERT Feliciano [employer] Other XR foot LT min 3V* Left foot 11/13/2021. [employer] Other XR foot LT min 3V* CLINICAL DATA: Left foot pain. N [facility] [employer] Other XR foot LT min 3V* FINDINGS: 3 views of the left foot were obtained and are compared with a prior study 03/21/2019. [employer] Other XR foot LT min 3V* No acute fracture or dislocation is identified. There is calcaneal spurring. No other bony [employer] Other XR foot LT min 3V* abnormality is seen. No localized soft tissue swelling is noted. [employer] Other XR foot LT min 3V* XR/XR foot LT min 3V* [employer] Other XR foot LT min 3V* IMPRESSION: Calcaneal spurring. No acute bony abnormality. [employer] Other XR foot LT min 3V* Impression dictated by: Pawan Gallardo Jr., M.D.11/13/2021 11:30 AM [employer] Other XR foot LT min 3V* Dictation Location: [place] [address] [employer] Other XR foot LT min 3V* Transcribed By: GENO 11/13/21 1130 [employer] Other XR foot LT min 3V* Dictated By: Pawan Gallardo Jr, MD 11/13/21 1127 [employer] Other XR foot LT min 3V* Signed By: [employer] Other XR foot LT min 3V* 11/13/21 1130 [employer] Other AGRISCIENCE TEACHER - Office Visiton AGRISCIENCE TEACHER - Office Visit Diagnoses/Problems Assessed Adnexal mass (625.8) (N94.89) Pelvic pain (R10.2) Orders Alpha Fetoprotein, Serum; Status:Active; Requested for:88Qrk5697; Cancer Antigen, 125; Status:Active; Requested for:52Qgw2642; Cancer Antigen, GI Ca 19-9; Status:Active; Requested for:30Sep2021; Carcinoembryonic Antigen; Status:Active; Requested for:30Sep2021; HCG, Beta Quantitative; Status:Active; Requested for:30Sep2021; LDH; Status:Active; Requested for:30Sep2021; IO Ultrasound, pelvic complete; Status:Hold For - Scheduling; Requested for:30Sep2021; Radiologist to Determine Optimal Study : Y What are the patient's signs and symptoms? : adnexal mass, pelvic pain Tobacco Use Screening; Status:Complete; Done: 30Sep2021 Patient Discussion/Summary Susi is a 36-year-old female who is referred today for evaluation and treatment of a complex right ovarian cyst, pelvic pain. The patient's prior records were reviewed and discussed with the patient, and all questions were answered to her satisfaction. Unfortunately we do not have a copy of her prior operative reports for images from prior ultrasound/CT scans. At this point, we will plan to repeat imaging, check tumor markers, and obtain these operative reports. Once this work-up is complete, patient is to follow-up with me to discuss options and next steps. Plan: [x ] GREIGE GOODS INSPECTOR ultrasound, patient is to contact our office to schedule [x ] we will check tumor markers [x ] our office staff will reach out to the patient to sign medical record release forms for her operative procedures performed at [facility] [x ] patient is to follow-up with me once this work-up is complete A copy of this note was sent electronically to Dr. Cherri Horvath MD [facility] [phone] [place] [phone] [facility] Provider Impressions Susi is a 36-year-old female who is referred today for evaluation and treatment of a complex right ovarian cyst, pelvic pain. The patient's prior records were reviewed and discussed with the patient, and all questions were answered to her satisfaction. Unfortunately we do not have a copy of her prior operative reports for images from prior ultrasound/CT scans. At this point, we will plan to repeat imaging, check tumor markers, and obtain these operative reports. Once this work-up is complete, patient is to follow-up with me to discuss options and next steps. Plan: [x ] GREIGE GOODS INSPECTOR ultrasound, patient is to contact our office to schedule [x ] we will check tumor markers [x ] our office staff will reach out to the patient to sign medical record release forms for her operative procedures performed at [facility] [x ] patient is to follow-up with me once this work-up is complete A copy of this note was sent electronically to Dr. Cherri Horvath MD [facility] [phone] [place] [phone] [facility] Appointment Duration:. 45 minutes; greater than half of the time was spent on counseling. Chief Complaint An interactive audio and video telecommunication system which permits real time communications between the patient (at the originating site) and provider (at the distant site) was utilized to provide this telehealth service. The patient is being seen today for a New Patient Visit regarding Cyst on Right Ovary. History of Present Oeynbra8109/30/2021 9:15AM SUSI ORTIZ , 36 year is contacted for an (audio-visual, or audio only) Telehealth visit. Today's visit was provided through telemedicine conferencing: Using Sec[employer] platform. Consent: The concept of telemedicine? has been described to the patient. Patient has been informed of the anticipated benefits and possible risks. Patient understands the information provided regarding telemedicine, has had the opportunity to ask questions about this information, and all questions have been answered to patient's satisfaction. Patient consents for the use of telemedicine in his/her medical care and authorizes the transmission of any relevant medical information to providers and their staff involved in patient's medical or mental health care. The location of the patient : home The location of the provider: office The following staff and their role did participate in today's encounter visit: Prince Horvath MD HPI Referred by: Dr. Harley Accompanied today by: Self DATE OF COVID VACCINE: 2 doses of Pfizer vaccine History of present illness: Ssui is a 36 year year old female who presents with a cyst on her Right ovary. She reports that she began having pain that occurred daily in December 2020. She reports that this pain was located in her right lower quadrant, came and went throughout the day, and was not related to any specific activity. 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 She was taken (more content not included)... Normal [facility] Tobacco Screening.on 022 Fall risk assessment a) No falls within the last year KA-PHCQE-UqfwChanning mcpherson 206A IVF Work Phone: Last menstrual period start date MIRENA OV-HRUXQ-AvloChanning mcpherson 206A IVF Work Phone: Tobacco use status CPHS b) No RU-YIXWQ-VwazChanning mcpherson 206A IVF Work Phone: POCT urine pregnancyon 04-06 Beta HCG ( test) Ql (U) Negative NEGATIVE [facility], [place] Comment on above: Specimens with hCG levels near the thres hold of the test (25 mIU/mL) may give a negative or indeterminate result. In such cases, another test should be performed with a new specimen in 48-72 hours. If early is suspected clinically in this setting, correlation with quantitative serum b-hCG level is suggested. TESTING PERFORMED AT [place] [id number] Surgical Pathologyon 020 Surgical Pathology (NOTE) -- Diagnosis -- STOMACH, BIOPSIES: - MILD CHRONIC INACTIVE GASTRITIS. - NEGATIVE FOR ACTIVE GASTRITIS, INTESTINAL METAPLASIA OR DYSPLASIA. Ignacio Harris M.D. Electronically Signed Out /04/10/2020 Clinical Information Pre-op Diagnosis: OBESITY Operative Findings: STOMACH BIOPSY TO RULE OUT H. PYLORI STAIN Operation Performed: EGD BIOPSY Source of Specimen 1: STOMACH BIOPSY TO RULE OUT H. PYLORI (A) Gross Description SUSI ORTIZ, STOMACH BIOPSY TO RULE OUT H. PYLORI STAIN [place]johnson tissue fragments, each 0.2 x 0.2 x 0.2 cm and are 0.4 x 0.2 x 0.2 cm. Entirely 1cs. mpb tm Microscopic Description Sections of gastric mucosa show lamina propria with slightly increased lymphocytes and plasma cells. There is no evidence of acute inflammation, intestinal metaplasia or dysplasia. There is no evidence of organisms suspicious for Helicobacter with the routine CELINA stain. SURGICAL PATHOLOGY CONSULTATION Patient Name: SUSI ORTIZ [facility] Rec: [id number] Path Number: [id number] [facility] ANATOMIC PATHOLOGY [address] [place] [phone] Normal [facility] Comment on above: Performed By: #### PPPVS #### [facility] [address] [place], [place] [id number] Silviculture Professor: Tito Balderrama MD [id number] 04-04-2020 SARS-CoV-2 Not Detected Normal Not Detected [facility] Comment on above: Result Comment: (NOTE) This nucleic acid amplification test was developed and its performance characteristics determined by [facility]. Nucleic acid amplification tests include PCR and TMA. This test has not been FDA cleared or approved. This test has been authorized by FDA under an Emergency Use Authorization (EUA). This test is only authorized for the duration of time the declaration that circumstances exist justifying the authorization of the emergency use of in vitro diagnostic tests for detection of SARS-CoV-2 virus and/or diagnosis of COVID-19 infection under section 564(b)(1) of the Act, 21 U.S.C. 360bbb-3(b) (1), unless the authorization is terminated or revoked sooner. When diagnostic testing is negative, the possibility of a false negative result should be considered in the context of a patient's recent exposures and the presence of clinical signs and symptoms consistent with COVID-19. An individual without symptoms of COVID- 19 and who is not shedding SARS-CoV-2 virus would expect to have a negative (not detected) result in this assay. Performed At: [facility] [address] [facility], [place] [id number] You Naqvi MD Ph:[phone] Performed By: #### A COV #### [facility] [address] [place] [address] Silviculture Professor: Olivier Espinosa MD Covid-19 Ambulatoryon 2019 SARS-CoV-2, ASH Not Detected Not Detected [place], [place] Comment on above: (NOTE) This nucleic acid amplification test was developed and its performance characteristics determined by [facility]. Nucleic acid amplification tests include PCR and TMA. This test has not been FDA cleared or approved. This test has been authorized by FDA under an Emergency Use Authorization (EUA). This test is only authorized for the duration of time the declaration that circumstances exist justifying the authorization of the emergency use of in vitro diagnostic tests for detection of SARS-CoV-2 virus and/or diagnosis of COVID-19 infection under section 564(b)(1) of the Act, 21 U.S.C. 360bbb-3(b) (1), unless the authorization is terminated or revoked sooner. When diagnostic testing is negative, the possibility of a false negative result should be considered in the context of a patient's recent exposures and the presence of clinical signs and symptoms consistent with COVID-19. An individual without symptoms of COVID- 19 and who is not shedding SARS-CoV-2 virus would expect to have a negative (not detected) result in this assay. Performed At: [facility] [address] [facility], [place] [id number] You Naqvi MD Ph:[phone] Drug Scr,Pain Mgmt Uon 01-09 7-Aminoclonazep, Ur Not Detected Normal [facility] Comment on above: Performed By: #### ADAUPM ####[address] [place] [address] Acetaminophen mass conc Not Detected Normal [facility] Comment on above: Performed By: #### ADAUPM ####[address] [place] [address] Evdea-BU-Viqzdi, Ur Not Detected Normal [facility] Comment on above: Performed By: #### ADAUPM ####[address] [place] [address] Alprazolam, Ur Not Detected Normal [facility] Comment on above: Performed By: #### ADAUPM ####[address] [place] [address] Amphetamine, Ur Not Detected Normal [facility] Comment on above: Performed By: #### ADAUPM ####[facility] [facility] [place] [address] Barbiturates, Ur Not Detected Normal [facility] Comment on above: Performed By: #### ADAUPM ####[facility] [place] [address] Benzoylecgonine, Ur Not Detected Normal [facility] Comment on above: Performed By: #### ADAUPM ####[facility] [place] [address] Buprenorphine, Ur Not Detected Normal [facility] Comment on above: Performed By: #### ADAUPM ####[address] [address] Carisoprodol, Ur Not Detected Normal [facility] Comment on above: Result Comment: (NOTE)The carisoprodol i mmunoassay has cross-reactivity to carisoprodoland meprobamate. Performed By: #### A DAUPM ####[facility] [place] [address] Clonazepam, Ur Not Detected Normal [facility] Comment on above: Performed By: #### ADAUPM ####[facility] [place] [address] Codeine, Ur Not Detected Normal [facility] Comment on above: Performed By: #### ADAUPM ####[address] [address] Creatinine 52.1 mg/dL Normal 20.0-400.0 [facility] Comment on above: Performed By: #### ADAUPM ####[address] [address] Diazepam, Ur Not Detected Normal [facility] Comment on above: Performed By: #### ADAUPM ####[facility] [place] [address] EER Hi Res Interp Ur See Note Normal [facility] Comment on above: Result Comment: (NOTE)Access Tradono ed Report using either link below:-Direct access: [email or web address] Username, Password: [email or web address]: [email or web address] by [facility],[address] [place] [address],[place] [address] [email or web address], Ari Lwoe MD, Lab. DirectorPerformed at [facility] [address] [place] [address] Performed By: #### A DAUPM ####[facility] [place] [address] Fentanyl, Ur Not Detected Normal [facility] Comment on above: Performed By: #### ADAUPM ####[address] [address] Glucose mass conc Not Detected Normal [facility] Comment on above: Performed By: #### ADAUPM ####[facility] [place] [address] Hydrocodone, Ur Not Detected Normal [facility] Comment on above: Performed By: #### ADAUPM ####[address] [address] Hydromorphone, Ur Not Detected Normal [facility] Comment on above: Performed By: #### ADAUPM ####[address] [address] Lorazepam, Ur Not Detected Normal [facility] Comment on above: Performed By: #### ADAUPM ####[facility] [facility] [place] [address] Marijuana Metab, Ur Not Detected Normal [facility] Comment on above: Performed By: #### ADAUPM ####[facility] [place] [address].[place] [address] MDA, Ur Not Detected Normal [facility] Comment on above: Performed By: #### ADAUPM ####[facility] [place] [address].[place] [address] MDEA, Terra, Ur Not Detected Normal [facility] Comment on above: Performed By: #### ADAUPM ####[facility] [place] [address].[place] [address] MDMA, Ecstasy, Ur Not Detected Normal [facility] Comment on above: Performed By: #### ADAUPM ####[facility] [place] [address] Meperidine metab, Ur Not Detected Normal [facility] Comment on above: Performed By: #### ADAUPM ####[facility] [place] [address].[place] [address] Methadone, Ur Not Detected Normal [facility] Comment on above: Performed By: #### ADAUPM ####[facility] [place] [address] Methamphetamine, Ur Not Detected Normal [facility] Comment on above: Performed By: #### ADAUPM ####[facility] [place] [address].[place] [address] Methylphenidate Not Detected Normal [facility] Comment on above: Performed By: #### ADAUPM ####[facility] [facility] [place] [address] Midazolam, Ur Not Detected Normal [facility] Comment on above: Performed By: #### ADAUPM ####[facility] [place] [address], [place] [address] Morphine, Ur Not Detected Normal [facility] Comment on above: Performed By: #### ADAUPM ####[facility] [place] [address], [place] [address] Norbuprenorphine , Ur Not Detected Normal [facility] Comment on above: Performed By: #### ADAUPM ####[facility] [place] [address], [place] [address] Nordiazepam, Ur Not Detected Normal [facility] Comment on above: Performed By: #### ADAUPM ####[facility] [place] [address], [place] [address] Norfentanyl, Ur Not Detected Normal [facility] Comment on above: Performed By: #### ADAUPM ####[facility] [place] [address] [place] [address] Norhydrocodone, Ur Not Detected Normal [facility] Comment on above: Performed By: #### ADAUPM ####[facility] [place] [address], [place] [address] Noroxycodone, Ur Not Detected Normal [facility] Comment on above: Performed By: #### ADAUPM ####[address] [place] [address] Noroxymorphone, Ur Not Detected Normal [facility] Comment on above: Performed By: #### ADAUPM ####[facility] [place] [address] [place] [address] Oxazepam, Ur Not Detected Normal [facility] Comment on above: Performed By: #### ADAUPM ####[facility] [facility] [place] [address] Oxycodone, Ur Not Detected Normal [facility] Comment on above: Performed By: #### ADAUPM ####[facility] [facility] [place] [address] Oxymorphone, Ur Not Detected Normal [facility] Comment on above: Performed By: #### ADAUPM ####[facility] [facility] [place] [address] Pain Mgt Drg Handely, Ur See Below Normal [facility] Comment on above: Result Comment: (NOTE)Methodology: Quali tative Enzyme Immunoassay and Qualitative LiquidChromatography-Time of Flight-Mass Spectrometry, QuantitativeSpectrophotometryThe absence of expected drug(s) and/or drug metabolite(s) mayindicate non-compliance, inappropriate timing of specimencollection relative to drug administration, poor drug absorption,diluted/adulterated urine, or limitations of testing. Theconcentration must be greater than or equal to the cutoff to bereported as present. If specific drug concentrations arerequired, contact the laboratory within two weeks of specimencollection to request quantification by a second analyticaltechnique. Interpretive questions should be directed to thelaboratory.Results based on immunoassay detection that do not match clinicalexpectations should beinterpreted with caution. Confirmatory testing by massspectrometry for immunoassay-based results is available, ifordered within two weeks of specimen collection. Additionalcharges apply.For medical purposes only; not valid for forensic use.This test was developed and its performance characteristicsdetermined by [employer]. The U.S. Food and DrugAdministration has not approved or cleared this test; however, FDAclearance or approval is not currently required for clinical use.The results are not intended to be used as the sole means forclinical diagnosis or patient management decisions. Performed By: #### A DAUPM ####[facility] [place] [address] PCP, Ur Not Detected Normal [facility] Comment on above: Performed By: #### ADAUPM ####[facility] [place] [address] Phentermine, Ur Not Detected Normal [facility] Comment on above: Performed By: #### ADAUPM ####[facility] [place] [address] Pn Mg Drg Handley Int Ur Consistent Normal [facility] Comment on above: Result Comment: (NOTE) _DRUGS EXPECTED:NO DRUGS EXPECTED ___CONSISTENT with medications provided:NO DRUGS DETECTED ___INTERPRETIVE INFORMATION:Pain Mgt Handley, High Res/EMIT, Ur, InterpInterpretation depends on accuracy and completeness of patientmedication information submitted by client. Performed By: #### A DAUPM ####[facility] [place] [address] Propoxyphene, Ur Not Detected Normal [facility] Comment on above: Performed By: #### ADAUPM ####[facility] [place] [address] Tapentadol o Sul, Ur Not Detected Normal [facility] Comment on above: Performed By: #### ADAUPM ####[facility] [place] [address] Tapentadol, Ur Not Detected Normal [facility] Comment on above: Performed By: #### ADAUPM ####[facility] [place] [id number] Temazepam, Ur Not Detected Normal [facility] Comment on above: Performed By: #### ADAUPM ####[facility] [place] [address] Tramadol, Ur Not Detected Normal [facility] Comment on above: Performed By: #### ADAUPM ####[facility] [place] [address] Zolpidem, Ur Not Detected Normal [facility] Comment on above: Performed By: #### ADAUPM ####[address] [address] Drug Scr,Pain Mgmt Uon 01-06 Drugs Expected, Ur NONE Normal [facility] Comment on above: Performed By: #### ADAUPM ####[facility] [place] [address] Vital Signs Date Time Vital Sign Value Performing Clinician Facility 09-07-2023 09:30-0400 Body height 162.6 cm Jayshree Huffman APRN.PRE SALES TECHNICAL CONSULTANT Work Phone: [facility] 09-07-2023 09:30-0400 Body temperature 98.01 [degF] Jayshree Huffman APRN.PRE SALES TECHNICAL CONSULTANT Work Phone: [facility] 09-07-2023 09:30-0400 Body weight 169.87 kg Jayshree Nathanael PRODUCTION TROUBLESHOOTER.PRE SALES TECHNICAL CONSULTANT Work Phone: [facility] 09-07-2023 09:30-0400 Diastolic blood pressure 81 mm[Hg] Jayshree Huffman PRODUCTION TROUBLESHOOTER.PRE SALES TECHNICAL CONSULTANT Work Phone: [facility] 09-07-2023 09:30-0400 Heart rate 80 /min Jayshree Huffman PRODUCTION TROUBLESHOOTER.PRE SALES TECHNICAL CONSULTANT Work Phone: [facility] 09-07-2023 09:30-0400 Systolic blood pressure 107 mm[Hg] Jayshree Huffman PRODUCTION TROUBLESHOOTER.PRE SALES TECHNICAL CONSULTANT Work Phone: [facility] 08-31-2023 12:07-0500 Body height 162.[address] Work Phone: [facility] 08-31-2023 12:07-0500 Body weight 164.[address] Work Phone: [facility] 08-19-2023 12:14-0500 Body height 162.[address] Work Phone: [facility] 08-19-2023 12:14-0500 Body weight 167.[address] Work Phone: [facility] 08-17-2023 09:52-0500 Body height 162.6 cm Jayshree Huffman PRODUCTION TROUBLESHOOTER.PRE SALES TECHNICAL CONSULTANT Work Phone: [facility] 08-17-2023 09:52-0500 Body temperature 97.3 [degF] Jayshree Huffman PRODUCTION TROUBLESHOOTER.PRE SALES TECHNICAL CONSULTANT Work Phone: [facility] 08-17-2023 09:52-0500 Body weight 167.8 kg Jayshree Huffman PRODUCTION TROUBLESHOOTER.PRE SALES TECHNICAL CONSULTANT Work Phone: [facility] 08-17-2023 09:52-0500 Diastolic blood pressure 75 mm[Hg] Jayshree Huffman PRODUCTION TROUBLESHOOTER.PRE SALES TECHNICAL CONSULTANT Work Phone: [facility] 08-17-2023 09:52-0500 Heart rate 75 /min Jayshree Huffman PRODUCTION TROUBLESHOOTER.PRE SALES TECHNICAL CONSULTANT Work Phone: [facility] 08-17-2023 09:52-0500 SaO2% (BldA) [Mass fraction] 97 % Jayshree Huffman PRODUCTION TROUBLESHOOTER.PRE SALES TECHNICAL CONSULTANT Work Phone: [facility] 08-17-2023 09:52-0500 Systolic blood pressure 117 mm[Hg] Jayshree Huffman PRODUCTION TROUBLESHOOTER.PRE SALES TECHNICAL CONSULTANT Work Phone: [facility] 03-10-2023 13:33-0400 Body height 162.6 cm Pacc 2 Work Phone: [facility] 03-10-2023 13:33-0400 Body temperature 97 [degF] Pacc 2 Work Phone: [facility] 03-10-2023 13:33-0400 Body weight 181.44 kg Pacc 2 Work Phone: [facility] 03-10-2023 13:33-0400 Diastolic blood pressure 66 mm[Hg] Pacc 2 Work Phone: [facility] 03-10-2023 13:33-0400 Heart rate 73 /min Pacc 2 Work Phone: [facility] 03-10-2023 13:33-0400 Respiratory rate 16 /min Pacc 2 Work Phone: [facility] 03-10-2023 13:33-0400 SaO2% (BldA) [Mass fraction] 97 % Pacc 2 Work Phone: [facility] 03-10-2023 13:33-0400 Systolic blood pressure 138 mm[Hg] Pacc 2 Work Phone: [facility] 03-05-2023 12:54-0400 Body height [address] Work Phone: [facility] 12-15-2022 15:09-0400 Body height [address] Work Phone: [facility] 12-15-2022 15:09-0400 Body weight 174.[address] Work Phone: [facility] 12-13-2022 09:30-0400 Body height 162.56 cm Linda South Other [employer] Other 12-13-2022 09:30-0400 Body mass index (BMI) [Ratio] 66.08 kg/m2 Linda Akosua Other [employer] Other 12-13-2022 09:30-0400 Body temperature 98.2 [degF] Linda South Other [facility] Other 12-13-2022 09:30-0400 Body weight 174.64 kg Linda Akosua Other [employer] Other 12-13-2022 09:30-0400 Respiratory rate 18 /min Linda Akosua Other [employer] Other 12-13-2022 09:30-0400 SaO2% (BldA) [Mass fraction] 96 % Linda Akosua Other [employer] Other 06-04-2022 11:04-0500 Body weight 185.07 kg Amina Nieto MD Work Phone: [facility] 04-16-2022 19:25-0400 Body height 162.56 cm Christa Tyler Other [employer] Other 04-16-2022 19:25-0400 Body mass index (BMI) [Ratio] 60.07 kg/m2 Christa Tyler Other [employer] Other 04-16-2022 19:25-0400 Body temperature 98.6 [degF] Christa Tyler Other [employer] Other 04-16-2022 19:25-0400 Body weight 158.76 kg Christa Tyler Other [employer] Other 04-16-2022 19:25-0400 Respiratory rate 18 /min Christa Tyler Other [employer] Other 04-16-2022 19:25-0400 SaO2% (BldA) [Mass fraction] 97 % Christa Tyler Other [employer] Other 01-17-2022 09:12-0400 Body height [address] Work Phone: [facility] 01-17-2022 09:12-0400 Body weight 179.[address] Work Phone: [facility] 12-18-2021 12:45-0400 Diastolic blood pressure 103 mm[Hg] Joe Granda MD Work Phone: [facility] 12-18-2021 12:45-0400 SaO2% (BldA) [Mass fraction] 100 % Joe Granda MD Work Phone: [facility] 12-18-2021 12:45-0400 Systolic blood pressure 123 mm[Hg] Joe Granda MD Work Phone: [facility] 12-18-2021 12:34-0400 Body temperature 96.91 [degF] Joe Granda MD Work Phone: [facility] 12-18-2021 12:34-0400 Heart rate 106 /min Joe Granda MD Work Phone: [facility] 12-18-2021 12:34-0400 Respiratory rate 20 /min Joe Granda MD Work Phone: [facility] 11-13-2021 11:30-0400 Body height 162.56 cm Christa Nayeli Other [employer] Other 11-13-2021 11:30-0400 Body mass index (BMI) [Ratio] 68.65 kg/m2 Christa Tyler Other [facility] Other 11-13-2021 11:30-0400 Body temperature 98.3 [degF] Chritsa Tyler Other [facility] Other 11-13-2021 11:30-0400 Body weight 181.44 kg Christa Tyler Other [facility] Other 11-13-2021 11:30-0400 Diastolic blood pressure 77 mm[Hg] Christa Tyler Other [employer] Other 11-13-2021 11:30-0400 Respiratory rate 18 /min Christa Tyler Other [employer] Other 11-13-2021 11:30-0400 SaO2% (BldA) [Mass fraction] 100 % Christa Tyler Other [employer] Other 11-13-2021 11:30-0400 Systolic blood pressure 125 mm[Hg] Christa Tyler Other [employer] Other 11-04-2021 12:44-0400 Body height [address] Work Phone: [facility] 11-04-2021 12:44-0400 Body weight 184.[address] Work Phone: [facility] 11-04-2021 11:13-0400 Body height 160 cm Joe Granda MD Work Phone: [facility] 11-04-2021 11:13-0400 Body weight 184.61 kg Joe Granda MD Work Phone: [facility] 11-04-2021 11:13-0400 Diastolic blood pressure 74 mm[Hg] Joe Granda MD Work Phone: [facility] 11-04-2021 11:13-0400 Heart rate 86 /min Joe Granda MD Work Phone: [facility] 11-04-2021 11:13-0400 Systolic blood pressure 133 mm[Hg] Joe Granda MD Work Phone: [facility] 10-11-2021 14:45-0400 Body height 162.56 cm Bambi Gonzalez Other [facility] Other 10-11-2021 14:45-0400 Body mass index (BMI) [Ratio] 64.36 kg/m2 Bambi Gonzalez Other [facility] Other 10-11-2021 14:45-0400 Body temperature 97.3 [degF] Bambi Gonzalez Other [facility] Other 10-11-2021 14:45-0400 Body weight 170.1 kg Bambi Gonzalez Other [facility] Other 10-11-2021 14:45-0400 Respiratory rate 26 /min Bambi Gonzalez Other [employer] Other 10-11-2021 14:45-0400 SaO2% (BldA) [Mass fraction] 94 % Bambi Gonzalez Other [employer] Other 10-03-2021 13:25-0400 Body height 162.56 cm Rupinder Blakely Other [employer] Other 10-03-2021 13:25-0400 Body mass index (BMI) [Ratio] 68.82 kg/m2 Rupinder Blakely Other [facility] Other 10-03-2021 13:25-0400 Body temperature 97.5 [degF] Rupinder Blakely Other [facility] Other 10-03-2021 13:25-0400 Body weight 181.89 kg Rupinder Blakely Other [employer] Other 10-03-2021 13:25-0400 Diastolic blood pressure 57 mm[Hg] Rupinder Blakely Other [facility] Other 10-03-2021 13:25-0400 Respiratory rate 18 /min Rupinder Blakely Other [employer] Other 10-03-2021 13:25-0400 SaO2% (BldA) [Mass fraction] 99 % Rupinder Blakely Other [facility] Other 10-03-2021 13:25-0400 Systolic blood pressure 118 mm[Hg] Rupinder Blakely Other [employer] Other 09-30-2021 09:03-0400 Body height 162.56 cm Prince Horvath Work Phone: [id number] [facility] Work Phone: 09-30-2021 09:03-0400 Body mass index (BMI) [Ratio] 60.08 kg/m2 Prince Horvath Work Phone: [id number] [facility] Work Phone: 09-30-2021 09:03-0400 Body surface area Derived from formula 2.48 m2 Prince Horvath Work Phone: [id number] [facility] Work Phone: 09-30-2021 09:03-0400 Body weight 158.76 kg Prince Horvath Work Phone: [id number] [facility] Work Phone: 09-30-2021 09:03-0400 2 1 Prince Horvath Work Phone: [id number] [facility] Work Phone: Comment on above: GRAV PARA 09-30-2021 09:03-0400 0 1 Prince Horvath Work Phone: [id number] [facility] Work Phone: Comment on above: [employer] 09-23-2021 11:00-0400 Body height 160 cm Jayshree Huffman PRODUCTION TROUBLESHOOTER.PRE SALES TECHNICAL CONSULTANT Work Phone: [facility] 09-23-2021 11:00-0400 Body weight 165.56 kg Jayshree Huffman PRODUCTION TROUBLESHOOTER.PRE SALES TECHNICAL CONSULTANT Work Phone: [facility] 05-17-2021 11:18-0500 Body height 160 cm Humza Walter MD Work Phone: [facility] 05-17-2021 11:18-0500 Body mass index (BMI) [Ratio] 68.09 kg/m2 Humza Walter MD Work Phone: [facility] 05-17-2021 11:18-0500 Body temperature 96.3 [degF] Humza Walter MD Work Phone: [facility] 05-17-2021 11:18-0500 Body weight 174.36 kg Humza Walter MD Work Phone: [facility] 05-17-2021 11:18-0500 Diastolic blood pressure 77 mm[Hg] Humza Walter MD Work Phone: [facility] 05-17-2021 11:18-0500 Heart rate 75 /min Humza Walter MD Work Phone: [facility] 05-17-2021 11:18-0500 SaO2% (BldA) [Mass fraction] 95 % Humza Walter MD Work Phone: [facility] 05-17-2021 11:18-0500 Systolic blood pressure 133 mm[Hg] Humza Walter MD Work Phone: [facility] 04-06-2020 09:25-0400 BP Diastolic 77 mm[Hg] [facility] [employer] [facility], [place] 04-06-2020 09:25-0400 BP Systolic 129 mm[Hg] [facility] [employer] [facility], [place] 04-06-2020 09:25-0400 Pulse (Heart Rate) 85 /min [place], [place] 04-06-2020 09:25-0400 Pulse Oximetry 100 % [place], [place] 04-06-2020 09:25-0400 Respiratory Rate 17 /min [place], [place] 04-06-2020 08:54-0400 Body Temperature 97.81 [degF] [place] 04-06-2020 08:06-0400 BMI (Body Mass Index) 64.68 kg/m2 [place], [place] 04-06-2020 08:06-0400 Body weight 165.62 kg [facility] [employer] [place], [place] 04-06-2020 08:06-0400 Height 160 cm [place], [place] Encounters Encounter Date Encounter Type Care Provider Facility Start: 10-13-2023 End: 10-13-2023 ambulatory OTILIO LEON Not Available Start: 10-07-2023 End: 10-08-2023 ambulatory KATIA LEWIS Not Available Start: 09-16-2023 End: 09-16-2023 ambulatory KIKO HARLEY Not Available Start: 09-07-2023 End: 09-07-2023 ambulatory JOE GRANDA Facility:[facility] Start: 09-07-2023 End: 09-07-2023 Patient encounter procedure Jayshree Huffman APRN.PRE SALES TECHNICAL CONSULTANT Work Phone: General Surgery Comment on above: S/P gastrointestinal surgery, follow-up exam (Primary Dx); S/P biliopancreatic diversion with duodenal switch; Open abdominal incision with drainage, subsequent encounter; Impaired intestinal absorption; Class 3 severe obesity with body mass index (BMI) of 60.0 to 69.9 in adult, unspecified obesity type, unspecified whether serious comorbidity present (HCC) Start: 09-01-2023 End: 09-01-2023 ambulatory KIKO HARLEY Not Available Start: 08-31-2023 End: 08-31-2023 [facility] Start: 08-31-2023 End: 08-31-2023 Admission to same day surgery center Rupinder Colbert RD Work Phone: General Surgery Comment on above: S/P bariatric surger y (Primary Dx); Body mass index (BMI) 60.0-69.9, adult (HCC); Dietary counseling and surveillance Start: 08-31-2023 End: 08-31-2023 Telemedicine consultation with patient Rupinder Colbert RD Work Phone: [facility] Start: 08-19-2023 End: 08-19-2023 ambulatory [facility]ABET [facility] Facility:[facility] Start: 08-19-2023 End: 08-19-[address] Work Phone: Endocrinology BMI Comment on above: Impaired intestinal absorption (Primary Dx); S/P biliopancreatic diversion with duodenal switch; Class 3 severe obesity with body mass index (BMI) of 60.0 to 69.9 in adult, unspecified obesity type, unspecified whether serious comorbidity present (HCC); Dietary counseling and surveillance Start: 08-19-2023 End: 08-19-2023 Telemedicine consultation with patient Alex Monsivais RD Work Phone: [facility]WAN [facility] Start: 08-17-2023 End: 08-17-2023 ambulatory ELIZABET RUMSCHLAG Facility:[facility] Start: 08-17-2023 End: 08-17-2023 Patient encounter procedure Jayshree Huffman APRN.CNP Work Phone: Endocrinology BMI Comment on above: S/P gastrointestinal surgery, follow-up exam (Primary Dx); Status post biliopancreatic diversion with duodenal switch; Post-operative nausea and vomiting Start: 08-13-2023 Telephone encounter Niki Peterson RN General Surgery Comment on above: Post Op Start: 08-04-2023 End: 08-11-2023 Evaluation and management of inpatient JOE GRANDA Facility:[facility] Start: 08-03-2023 Telephone encounter Silvia Curry RN General Surgery Start: 07-22-2023 End: 07-23-2023 ambulatory ELIZABET RUMSCHAZG Facility:[facility] Start: 07-22-2023 Encounter for other preprocedural examination AMINA NIETO [facility] Start: 07-21-2023 End: 07-21-2023 [facility] Start: 07-20-2023 End: 07-20-2023 [facility] Facility:[facility] Start: 07-14-2023 End: 07-14-2023 ambulatory JOE GRANDA Facility:[facility] Start: 07-13-2023 End: 07-13-2023 [facility] Start: 05-09-2023 [facility] Joe Granda MD Work Phone: Endocrinology BMI Comment on above: About surgery Start: 05-09-2023 ambulatory Joe izquierdo MD Work Phone: [facility]WAN [facility] Start: 05-08-2023 ambulatory Joe izquierdo MD Work Phone: General Surgery Comment on above: Confirming Or Date Start: 05-08-2023 E-mail encounter fro m caregiver Joe Granda MD Work Phone: [facility] Start: 04-30-2023 End: 05-01-2023 ambulatory JOE GRANDA Facility:[facility] Start: 04-27-2023 Telephone encounter Joe sargent MD Work Phone: Endocrinology BMI Start: 04-13-2023 End: 04-13-2023 ambulatory RUPINDER COLBERT Facility:[facility] Start: 04-13-2023 End: 04-13-[address] Work Phone: General Surgery Comment on above: Patient left without being seen (Primary Dx) Start: 04-13-2023 End: 04-13-2023 Telemedicine consultation with patient Rupinder Colbert RD Work Phone: [facility] Start: 03-31-2023 End: 04-01-2023 Evaluation and management of inpatient JOE GRANDA Facility:[facility] Start: 03-10-2023 End: 03-10-2023 ambulatory JOE Edie KALEE Facility:[facility] Start: 03-10-2023 End: 03-10-2023 PAT [facility] [place] [facility] Work Phone: Pre Anesthesia Comment on above: Pre-op evaluation (P rimary Dx); Morbid obesity with body mass index of 60.0-69.9 in adult ([facility]); Gastroesophageal reflux disease, unspecified whether esophagitis present; TONEY on CPAP; Bipolar affective disorder, remission status unspecified ([facility]); Thrombocytosis; Migraine without status migrainosus, not intractable, unspecified migraine type Surgery question Start: 03-10-2023 End: 03-10-2023 Preprocedural examination done [facility] [place] [facility] Work Phone: [facility] Work Phone: Start: 03-05-2023 Encounter for other preprocedural examination MIREILLE DAO [facility] Start: 03-05-2023 End: 03-05-2023 [facility] Mireille Dao RD Work Phone: General Surgery Comment on above: Weight gain followin g gastric bypass surgery (Primary Dx); Abnormal weight gain; Preop testing; Snoring; Sleep-disordered breathing; Fatigue, unspecified type; S/P bariatric surgery; S/P gastric sleeve procedure; Dietary counseling and surveillance; BMI 60.0-69.9, adult (HCC) Start: 03-05-2023 End: 03-05-2023 Patient encounter status Mireille Dao RD Work Phone: [facility] Work Phone: Start: 02-26-2023 End: 02-26-2023 ambulatory JOE GRANDA Facility:[facility] Start: 01-23-2023 End: 01-23-2023 [facility] Start: 01-15-2023 End: 01-15-2023 ambulatory JOE GRANDA Facility:[facility] Start: 01-09-2023 End: 01-09-2023 ambulatory JOE GRANDA Facility:[facility] Start: 01-05-2023 Telephone encounter Joe sargent MD Work Phone: Endocrinology BMI Comment on above: Schedule Surgery (DS ) Start: 12-15-2022 End: 12-15-2022 ambulatory [facility] Facility:[facility] Start: 12-15-2022 End: 12-15-2022 Admission to same day surgery center Mireille Davismichelle OLIVAS Work Phone: General Surgery Comment on above: S/P gastric sleeve p rocedure (Primary Dx); Weight gain following gastric bypass surgery; BMI 60.0-69.9, adult (HCC); Dietary counseling and surveillance Start: 12-15-2022 End: 12-15-2022 Telemedicine consultation with patient Mireille Dao RD Work Phone: [facility] Start: 12-13-2022 Office outpatient vi sit 15 minutes Linda [place] [facility] Start: 12-13-2022 End: 12-13-2022 ambulatory Linda [facility] Other Start: 12-03-2022 Admission to same da y surgery center Joe Granda MD Work Phone: General Surgery Comment on above: Insurance Authorizat ion (Not Real Surgery Date) Start: 12-03-2022 ambulatory oJe izquierdo MD Work Phone: [facility] Start: 11-03-2022 End: 11-04-[address] DOCTOR ALFARO Facility:[facility] Start: 08-27-2022 End: 08-28-[address] DOCTOR ALFARO Facility:[facility] Start: 08-19-2022 End: 08-19-2022 ambulatory MICHELLE GOMEZ . Facility:[facility] Start: 08-17-2022 Encounter for other preprocedural examination DR DOCTOR ALFARO [facility] Start: 08-12-2022 End: 08-13-[address] DOCTOR ALFARO Facility:[facility] Start: 08-12-2022 End: 08-13-2022 Encounter for other preprocedural examination DR DOCTOR ALFARO Facility:[facility] Start: 07-22-[address] DOCTOR ALFARO Facility :[facility] Start: 06-04-2022 End: 06-04-2022 [facility] Amina Nieto MD Work Phone: Endocrinology BMI Comment on above: Weight disorder (Nataliia july Dx); BMI 70 and over, adult (HCC); Preop testing; Abnormal weight gain; Snoring; Sleep-disordered breathing; Fatigue, unspecified type; S/P bariatric surgery Start: 06-04-2022 End: 06-04-2022 Patient encounter status Amina Nieto MD Work Phone: Endocrinology BMI Start: 05-02-2022 Telephone encounter Joe sargent MD Work Phone: Endocrinology BMI Comment on above: Patient Update (Garcia ge in surgery type) Start: 05-01-2022 Telephone encounter Joe sargent MD Work Phone: Endocrinology BMI Comment on above: Patient Question Start: 04-18-2022 ambulatory Joe izquierdo MD Work Phone: Endocrinology BMI Comment on above: 06/10/2022 (Laparosc opic partial gastrectomy with gastrojejunostomy) Start: 04-18-2022 Telephone encounter Pao toscano RN Work Phone: Endocrinology BMI Comment on above: Schedule Surgery ([place] paroscopic partial gastrectomy with gastrojejunostomy) Start: 04-16-2022 End: 04-16-2022 ambulatory Christa Tyler Facility:[facility] Start: 04-16-2022 End: 04-16-2022 Patient encounter procedure [facility] Start: 04-16-2022 End: 04-16-2022 ambulatory Joe Granda MD Work Phone: Endocrinology BMI Comment on above: Morbid obesity with body mass index of 60.0-69.9 in adult (HCC) (Primary Dx); Gastroesophageal reflux disease, unspecified whether esophagitis present Start: 04-16-2022 End: 04-16-2022 Telemedicine consultation with patient Joe Granda MD Work Phone: PAWAN MALIK [facility] Start: 04-16-2022 End: 04-16-2022 ambulatory NON STAFF [facility] Work Phone: Start: 04-16-2022 Office outpatient vi sit 15 minutes [facility] Start: 04-15-2022 ambulatory Pao Hodgson RN Work Phone: Endocrinology BMI Comment on above: Upper GI Series Start: 04-15-2022 E-mail encounter fro m caregiver Pao Hodgson RN Work Phone: PAWAN MALIK [facility] Start: 04-11-2022 End: 04-12-[address] ESTELLA WHITEHEAD Facility:[facility] Start: 04-01-2022 End: 04-01-[address] KAT MUNGUIA . Facility:[facility] Start: 03-27-2022 End: 03-27-2022 ambulatory Rob Garcia Other [facility] Other Start: 03-27-2022 Telephone encounter Rob FOWLER [facility] Start: 03-10-2022 End: 03-10-2022 ambulatory Joe Granda MD Work Phone: Endocrinology BMI Comment on above: History of sleeve ga strectomy (Primary Dx) Start: 03-10-2022 End: 03-10-2022 Telemedicine consultation with patient Joe Granda MD Work Phone: PAWAN MALIK [facility] Start: 02-17-2022 End: 02-17-2022 ambulatory Joe Granda MD Work Phone: Endocrinology BMI Comment on above: NO SHOW (Primary Dx) Start: 02-17-2022 End: 02-17-2022 Telemedicine consultation with patient Joe Granda MD Work Phone: PAWAN Lyles K[facility] Start: 02-12-2022 End: 02-12-2022 Subsequent hospital visit by physician [facility] Work Phone: [facility] Radiology CT Scan Comment on above: 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 Facility: Start: 01-20-2022 End: 01-20-2022 ambulatory Joe Granda MD Work Phone: Endocrinology BMI Comment on above: Epigastric pain (Nataliia july Dx); Gastroesophageal reflux disease without esophagitis; History of sleeve gastrectomy Start: 01-20-2022 End: 01-20-2022 Telemedicine consultation with patient Joe Granda MD Work Phone: PAWAN MALIK [facility] Start: 01-17-2022 End: 01-17-[address] Work Phone: General Surgery Comment on above: Reassessment; Patien t Education Start: 12-18-2021 End: 12-18-2021 Subsequent hospital visit by physician Joe Granda MD Work Phone: Procedures Comment on above: TONEY on CPAP [G47.33, Z99.89] Start: 12-05-2021 End: 12-05-[address] Work Phone: General Surgery Comment on above: NO SHOW (Primary Dx) Start: 12-05-2021 End: 12-05-2021 Telemedicine consultation with patient Akosua Peraza RD Work Phone: [facility] Start: 11-13-2021 End: 11-13-2021 ambulatory Christa Tyler Other [facility] Other Start: 11-13-2021 Office outpatient vi sit 15 minutes Christa Tyler [facility] Start: 11-04-2021 End: 11-04-2021 ambulatory Alex Macarioveronica OLIVAS Work Phone: Endocrinology BMI Comment on above: Reassessment; Patien t Education Start: 11-04-2021 End: 11-04-2021 Patient encounter procedure Joe Granda MD Work Phone: Endocrinology BMI Comment on above: History of sleeve ga strectomy (Primary Dx); Gastric fistula Start: 10-28-2021 End: 10-28-2021 ambulatory Estella Nguyen Other [employer] Other Start: 10-28-2021 Telephone encounter Estella Nguyen [facility] Gastroenterology Start: 10-23-2021 End: 10-23-2021 ambulatory Celsa Argueta Other [facility] Other Start: 10-23-2021 Telephone encounter Celsa Argueta [facility] Start: 10-11-2021 End: 10-11-2021 ambulatory Bambi Gonzalez Other [employer] Other Start: 10-11-2021 Patient encounter procedure Bambi Gonzalez [facility] Start: 10-03-2021 End: 10-03-2021 ambulatory Rupinder Blakely Other [employer] Other Start: 10-03-2021 Office outpatient vi sit 25 minutes Rupinder Blakely [facility] Start: 09-30-2021 Office consultation new/estab patient 40 min Prince Horvath Work Phone: [id number] Work Phone: Start: 09-25-2021 Orders Only Joe izquierdo MD Work Phone: General Surgery Comment on above: Dysphagia, unspecifi ed type (Primary Dx); Gastroesophageal reflux disease, unspecified whether esophagitis present; History of sleeve gastrectomy Start: 09-24-2021 E-mail encounter rajiv m caregiver Jayshree Huffman [employer] SALES TECHNICAL CONSULTANT Work Phone: [facility] Start: 09-24-2021 Follow-up encounter Jayshree jorgensenjustyna ADAMSONPRE SALES TECHNICAL CONSULTANT Work Phone: General Surgery Comment on above: Appointment follow u p Start: 09-23-2021 End: 09-23-2021 ambulatory Jayshree Huffman [employer] SAL[employer] TECHNICAL CONSULTANT Work Phone: General Surgery Comment on above: Gastroesophageal ref lux disease, unspecified whether esophagitis present (Primary Dx); Class 3 severe obesity with serious comorbidity and body mass index (BMI) of 60.0 to 69.9 in adult, unspecified obesity type (HCC); TONEY on CPAP; S/P laparoscopic sleeve gastrectomy; Postoperative malabsorption Start: 09-23-2021 End: 09-23-2021 Telemedicine consultation with patient Jayshree Huffman APRN.PRE SALES TECHNICAL CONSULTANT Work Phone: [facility] Start: 05-17-2021 End: 05-17-2021 Office outpatient new 45 minutes Humza Walter MD Work Phone: [facility] Comment on above: S/P laparoscopic sle terra gastrectomy (Primary Dx); TONEY on CPAP; Morbid obesity with body mass index of 50 or higher; Gastroesophageal reflux disease, unspecified whether esophagitis present; Screening for viral disease; Other intestinal malabsorption Start: 04-06-2020 End: 04-06-2020 Patient encounter procedure KYLAH VARGAS [facility] Start: 04-06-2020 End: 04-06-2020 Subsequent hospital visit by physician Kylah Vargas [facility] Comment on above: S/P laparoscopic sle terra gastrectomy (Primary Dx) Start: 04-02-2020 End: 04-07-2020 [facility] Start: 04-02-2020 Patient encounter procedure ELIZABET SIMENTAL [facility] Start: 04-02-2020 End: 04-06-2020 Subsequent hospital visit by physician Franklin Ponce Pat Screening Schedule MTHZ PRE ADMIT Comment on above: Preop testing Start: 01-06-2017 End: 01-07-2017 Ambulatory GENEVA ESTRADA [facility] Procedures Date Procedure Procedure Detail Performing Clinician Start: 07-22-2023 Antibody screen AMINA NIETO Comment on above: Order Comment: Specimen Type: BLOOD SPEC IMENOrdering Facility: [facility] Address: [address] [place] [address] Performed By: #### T [id number] ####CC MAIN BLOOD BANKCLIA [id number] [address] [place] Start: 04-16-2022 X-ray of right foot Start: 02-12-2022 Ct abdomen & pelvis w/contrast material Joe Granda MD Work Phone: Start: 12-18-2021 Esophagogastroduodenoscopy transoral diagnostic Jayshree Huffman APRN.PRE SALES TECHNICAL CONSULTANT Work Phone: Start: 08-19-2021 Adult depression screening assessment Jayshree Huffman APRN.PRE SALES TECHNICAL CONSULTANT Work Phone: Start: 04-06-2020 Level iv surg pathology gross&microscopic exam KYLAH VARGAS Start: 04-06-2020 DISCHARGE PATIENT KYLAH VARGAS Start: 04-06-2020 ASSESS KYLAH VARGAS Start: 04-06-2020 BEDREST KYLAH VARGAS Start: 04-06-2020 ENCOURAGE DEEP BREATHING AND COUGHING KYLAH VARGAS Start: 04-06-2020 INITIATE OXYGEN THERAPY PROTOCOL KYLAH VARGAS Start: 04-06-2020 NEURO/VASCULAR CHECKS KYLAH VARGAS Start: 04-06-2020 NOTIFY PHYSICIAN (SPECIFY) KYLAH RAMIREZ Start: 04-06-2020 NURSING COMMUNICATION KYLAH VARGAS Start: 04-06-2020 REMOVE IV KYLAH VARGAS Start: 04-06-2020 TELEMETRY MONITORING KYLAH VARGAS Start: 04-06-2020 VITAL SIGNS KYLAH VARGAS Start: 04-06-2020 Urine test visual color cmprsn meths KYLAH VARGAS Start: 04-06-2020 Urine test visual color cmprsn larissa Vargas Work Phone: Start: 04-02-2020 COVID-19 AMBULATORY CHANA THOMAS Start: 04-02-2020 COVID-19 AMBULATORY Jimy Thomas Work Phone: Start: 01-06-2017 DRUG SCREEN, PAIN GENEVA AICHHOLZ Cholecystectomy Prince giles Work Phone: Decompression of median nerve Prince Horvath Work Phone: Comment on above: Bilateral; History of gastroint estinal tract bypass Status post biliopancreatic diversion with duodenal switch Jayshree Nathanael [employer]ODUCTION TR[employer]BLES[employer]OTER.PRE SALES TECHNICAL CONSULTANT Work Phone: History of gastroint estinal tract bypass S/P biliopancreatic diversion with duodenal switch Alex Monsivais RD Work Phone: History of gastroint estinal tract bypass S/P biliopancreatic diversion with duodenal switch Jayshree Nathanael PRODUCTION TROUBLESHOOTER.PRE SALES TECHNICAL CONSULTANT Work Phone: Splenectomy Prince ramírez Work Phone: Plan of Treatment Date Care Activity Detail Author Start: 08-11-2029 DTaP/Tdap/Td vaccine (2 - Td) DTaP/Tdap/Td vaccine (2 - Td) [place] Start: 08-11-2029 Urine microalbumin profile DTaP,Tdap,Td Vaccine (2 - Td or Tdap) [facility] Start: 01-03-2025 Meningococcal (ACWY) vaccine (3 - Risk start after 7 months 2-dose series) Meningococcal (ACWY) vaccine (3 - Risk start after 7 months 2-dose series) [place], [place] Start: 10-26-2023 End: 01-25-2024 25-hydroxyvitamin D3 [Mass/volume] in Serum or Plasma VITAMIN D 25 HYDROXY Lab Routine S/P biliopancreatic diversion with duodenal switch Impaired intestinal absorption Expected: 10/26/2023 (Approximate), Expires: 01/25/2024 [facility] Work Phone: Comment on above: Expected: 10/26/2023 (Approximate), Expi res: 01/25/2024 Start: 10-26-2023 End: 01-25-2024 Alpha tocopherol [Mass/volume] in Serum or Plasma VITAMIN E/TOCOPHEROL Lab Routine S/P biliopancreatic diversion with duodenal switch Impaired intestinal absorption Expected: 10/26/2023 (Approximate), Expires: 01/25/2024 [facility] Work Phone: Comment on above: Expected: 10/26/2023 (Approximate), Expi res: 01/25/2024 Start: 10-26-2023 End: 01-25-2024 CBC panel - Blood by Automated count CBC Lab Routine S/P biliopancreatic diversion with duodenal switch Open abdominal incision with drainage, subsequent encounter Impaired intestinal absorption Expected: 10/26/2023 (Approximate), Expires: 01/25/2024 [facility] Work Phone: Comment on above: Expected: 10/26/2023 (Approximate), Expi res: 01/25/2024 Start: 10-26-2023 End: 01-25-2024 Cobalamin (Vitamin B12) [Mass/volume] in Serum or Plasma VITAMIN B12 BLOOD Lab Routine S/P biliopancreatic diversion with duodenal switch Impaired intestinal absorption Expected: 10/26/2023 (Approximate), Expires: 01/25/2024 [facility] Work Phone: Comment on above: Expected: 10/26/2023 (Approximate), Expi res: 01/25/2024 Start: 10-26-2023 End: 01-25-2024 Comprehensive metabolic 2000 panel - Serum or Plasma COMP METABOLIC PANEL Lab Routine S/P biliopancreatic diversion with duodenal switch Impaired intestinal absorption Expected: 10/26/2023 (Approximate), Expires: 01/25/2024 [facility] Work Phone: Comment on above: Expected: 10/26/2023 (Approximate), Expi res: 01/25/2024 Start: 10-26-2023 End: 01-25-2024 Ferritin [Mass/volume] in Serum or Plasma FERRITIN BLD Lab Routine S/P biliopancreatic diversion with duodenal switch Impaired intestinal absorption Expected: 10/26/2023 (Approximate), Expires: 01/25/2024 [facility] Work Phone: Comment on above: Expected: 10/26/2023 (Approximate), Expi res: 01/25/2024 Start: 10-26-2023 End: 01-25-2024 Folate [Mass/volume] in Serum or Plasma FOLATE SERUM Lab Routine S/P biliopancreatic diversion with duodenal switch Impaired intestinal absorption Expected: 10/26/2023 (Approximate), Expires: 01/25/2024 [facility] Work Phone: Comment on above: Expected: 10/26/2023 (Approximate), Expi res: 01/25/2024 Start: 10-26-2023 End: 01-25-2024 Hemoglobin A1c in Blood HGB A1C Lab Routine S/P biliopancreatic diversion with duodenal switch Impaired intestinal absorption Expected: 10/26/2023 (Approximate), Expires: 01/25/2024 [facility] Work Phone: Comment on above: Expected: 10/26/2023 (Approximate), Expi res: 01/25/2024 Start: 10-26-2023 End: 01-25-2024 Iron and Iron binding capacity panel - Serum or Plasma IRON + TIBC Lab Routine S/P biliopancreatic diversion with duodenal switch Impaired intestinal absorption Expected: 10/26/2023 (Approximate), Expires: 01/25/2024 [facility] Work Phone: Comment on above: Expected: 10/26/2023 (Approximate), Expi res: 01/25/2024 Start: 10-26-2023 End: 01-25-2024 Parathyrin.intact [Mass/volume] in Serum or Plasma PTH INTACT BLD Lab Routine S/P biliopancreatic diversion with duodenal switch Impaired intestinal absorption Expected: 10/26/2023 (Approximate), Expires: 01/25/2024 [facility] Work Phone: Comment on above: Expected: 10/26/2023 (Approximate), Expi res: 01/25/2024 Start: 10-26-2023 End: 01-25-2024 Retinol [Mass/volume] in Serum or Plasma VITAMIN A/RETINOL Lab Routine S/P biliopancreatic diversion with duodenal switch Impaired intestinal absorption Expected: 10/26/2023 (Approximate), Expires: 01/25/2024 [facility] Work Phone: Comment on above: Expected: 10/26/2023 (Approximate), Expi res: 01/25/2024 Start: 10-26-2023 End: 01-25-2024 VITAMIN B1 (THIAMINE), WHOLE BLOOD VITAMIN B1 (THIAMINE), WHOLE BLOOD Lab Routine S/P biliopancreatic diversion with duodenal switch Impaired intestinal absorption Expected: 10/26/2023 (Approximate), Expires: 01/25/2024 [facility] Work Phone: Comment on above: Expected: 10/26/2023 (Approximate), Expi res: 01/25/2024 Start: 10-26-2023 End: 01-25-2024 VITAMIN K VITAMIN K Lab Routine S/P biliopancreatic diversion with duodenal switch Impaired intestinal absorption Expected: 10/26/2023 (Approximate), Expires: 01/25/2024 [facility] Work Phone: Comment on above: Expected: 10/26/2023 (Approximate), Expi res: 01/25/2024 Start: 10-26-2023 End: 01-25-2024 Zinc [Mass/volume] in Serum or Plasma ZINC BLD Lab Routine S/P biliopancreatic diversion with duodenal switch Impaired intestinal absorption Expected: 10/26/2023 (Approximate), Expires: 01/25/2024 [facility] Work Phone: Comment on above: Expected: 10/26/2023 (Approximate), Expi res: 01/25/2024 Start: 06-29-2023 Depression Assessment Depression Assessment [facility] Start: 02-27-2023 Covid-19 Vaccine () Covid-19 Vaccine () [facility] Start: 02-27-2023 Influenza vaccination [facility] Start: 08-19-2022 Adult depression screening assessment DEPRESSION SCREENING [facility] Start: 06-29-2022 DEPRESSION ASSESSMENT DEPRESSION ASSESSMENT [facility] Start: 05-13-2022 End: 08-23-2022 Coagulation factor VIII activity actual/normal in Platelet poor plasma by Coagulation assay FACTOR VIII:C ASSAY Lab Routine BMI 70 and over, adult (HCC) Gastroesophageal reflux disease, unspecified whether esophagitis present Expected: 05/13/2022 (Approximate), Expires: 08/23/2022 [facility] Work Phone: Comment on above: Expected: 05/13/2022 (Approximate), Expi res: 08/23/2022 Start: 05-13-2022 End: 08-23-2022 CONFIRM BLOOD TYPE CONFIRM BLOOD TYPE Blood Bank Routine BMI 70 and over, adult (HCC) Gastroesophageal reflux disease, unspecified whether esophagitis present Expected: 05/13/2022 (Approximate), Expires: 08/23/2022 [facility] Work Phone: Comment on above: Expected: 05/13/2022 (Approximate), Expi res: 08/23/2022 Start: 05-13-2022 End: 08-23-2022 TYPE AND SCREEN,30 DAY TYPE AND SCREEN,30 DAY Blood Bank Routine BMI 70 and over, adult (HCC) Gastroesophageal reflux disease, unspecified whether esophagitis present Expected: 05/13/2022 (Approximate), Expires: 08/23/2022 [facility] Work Phone: Comment on above: Expected: 05/13/2022 (Approximate), Expi res: 08/23/2022 Start: 03-10-2022 End: 05-10-2022 25-hydroxyvitamin D3 [Mass/volume] in Serum or Plasma VITAMIN D 25 HYDROXY Lab Routine History of sleeve gastrectomy Expected: 03/10/2022, Expires: 05/10/2022 [facility] Work Phone: Comment on above: Expected: 03/10/2022, Expires: Start: 03-10-2022 End: 05-10-2022 CBC W Auto Differential panel - Blood CBC + DIFF Lab Routine History of sleeve gastrectomy Expected: 03/10/2022, Expires: 05/10/2022 [facility] Work Phone: Comment on above: Expected: 03/10/2022, Expires: 2 Start: 03-10-2022 End: 05-10-2022 Cobalamin (Vitamin B12) [Mass/volume] in Serum or Plasma VITAMIN B12 BLOOD Lab Routine History of sleeve gastrectomy Expected: 03/10/2022, Expires: 05/10/2022 [facility] Work Phone: Comment on above: Expected: 03/10/2022, Expires: 2 Start: 03-10-2022 End: 05-10-2022 Comprehensive metabolic 2000 panel - Serum or Plasma COMP METABOLIC PANEL Lab Routine History of sleeve gastrectomy Expected: 03/10/2022, Expires: 05/10/2022 [facility] Work Phone: Comment on above: Expected: 03/10/2022, Expires: 2 Start: 03-10-2022 End: 05-10-2022 Folate [Mass/volume] in Serum or Plasma FOLATE SERUM Lab Routine History of sleeve gastrectomy Expected: 03/10/2022, Expires: 05/10/2022 [facility] Work Phone: Comment on above: Expected: 03/10/2022, Expires: 2 Start: 03-10-2022 End: 05-10-2022 Iron and Iron binding capacity panel - Serum or Plasma IRON + TIBC Lab Routine History of sleeve gastrectomy Expected: 03/10/2022, Expires: 05/10/2022 [facility] Work Phone: Comment on above: Expected: 03/10/2022, Expires: 2 Start: 03-10-2022 End: 05-10-2022 Prealbumin [Mass/volume] in Serum or Plasma PREALBUMIN BLD Lab Routine History of sleeve gastrectomy Expected: 03/10/2022, Expires: 05/10/2022 [facility] Work Phone: Comment on above: Expected: 03/10/2022, Expires: 2 Start: 03-10-2022 End: 05-10-2022 VITAMIN B1 (THIAMINE), WHOLE BLOOD VITAMIN B1 (THIAMINE), WHOLE BLOOD Lab Routine History of sleeve gastrectomy Expected: 03/10/2022, Expires: 05/10/2022 [facility] Work Phone: Comment on above: Expected: 03/10/2022, Expires: 2 Start: 02-27-2022 Influenza vaccination INFLUENZA (#1) [facility] Start: 12-01-2021 COVID-19 VACCINE (3 - Booster for Pfizer series) COVID-19 VACCINE (3 - Booster for Pfizer series) [facility] Start: 11-04-2021 End: 01-04-2022 CBC W Auto Differential panel - Blood CBC + DIFF Lab Routine History of sleeve gastrectomy Expected: 11/04/2021, Expires: 01/04/2022 [facility] Work Phone: Comment on above: Expected: 11/04/2021, Expires: 2 Start: 11-04-2021 End: 01-04-2022 Comprehensive metabolic 2000 panel - Serum or Plasma COMP METABOLIC PANEL Lab Routine History of sleeve gastrectomy Expected: 11/04/2021, Expires: 01/04/2022 [facility] Work Phone: Comment on above: Expected: 11/04/2021, Expires: 2 Start: 11-04-2021 End: 01-04-2022 Folate [Mass/volume] in Serum or Plasma FOLATE SERUM Lab Routine History of sleeve gastrectomy Expected: 11/04/2021, Expires: 01/04/2022 [facility] Work Phone: Comment on above: Expected: 11/04/2021, Expires: 2 Start: 11-04-2021 End: 01-04-2022 IRON + TIBC IRON + TIBC Lab Routine History of sleeve gastrectomy Expected: 11/04/2021, Expires: 01/04/2022 [facility] Work Phone: Comment on above: Expected: 11/04/2021, Expires: 2 Start: 11-04-2021 End: 01-04-2022 LIPID PANEL BASIC LIPID PANEL BASIC Lab Routine History of sleeve gastrectomy Expected: 11/04/2021, Expires: 01/04/2022 [facility] Work Phone: Comment on above: Expected: 11/04/2021, Expires: 2 Start: 11-04-2021 End: 01-04-2022 Prealbumin [Mass/volume] in Serum or Plasma PREALBUMIN BLD Lab Routine History of sleeve gastrectomy Expected: 11/04/2021, Expires: 01/04/2022 [facility] Work Phone: Comment on above: Expected: 11/04/2021, Expires: 2 Start: 11-04-2021 End: 01-04-2022 VITAMIN B1 (THIAMINE), WHOLE BLOOD VITAMIN B1 (THIAMINE), WHOLE BLOOD Lab Routine History of sleeve gastrectomy Expected: 11/04/2021, Expires: 01/04/2022 [facility] Work Phone: Comment on above: Expected: 11/04/2021, Expires: 2 Start: 11-04-2021 End: 01-04-2022 VITAMIN B12 BLOOD VITAMIN B12 BLOOD Lab Routine History of sleeve gastrectomy Expected: 11/04/2021, Expires: 01/04/2022 [facility] Work Phone: Comment on above: Expected: 11/04/2021, Expires: 2 Start: 11-04-2021 End: 01-04-2022 VITAMIN D 25 HYDROXY VITAMIN D 25 HYDROXY Lab Routine History of sleeve gastrectomy Expected: 11/04/2021, Expires: 01/04/2022 [facility] Work Phone: Comment on above: Expected: 11/04/2021, Expires: 2 Start: 09-23-2021 End: 11-23-2021 CBC panel - Blood by Automated count CBC Lab Routine Gastroesophageal reflux disease, unspecified whether esophagitis present Class 3 severe obesity with serious comorbidity and body mass index (BMI) of 60.0 to 69.9 in adult, unspecified obesity type (HCC) Postoperative malabsorption Expected: 09/23/2021, Expires: 11/23/2021 [facility] Work Phone: Comment on above: Expected: 09/23/2021, Expires: 2 Start: 09-23-2021 End: 11-23-2021 Choriogonadotropin ( test) [Presence] in Urine HCG QUAL UR Lab Routine Gastroesophageal reflux disease, unspecified whether esophagitis present Class 3 severe obesity with serious comorbidity and body mass index (BMI) of 60.0 to 69.9 in adult, unspecified obesity type (HCC) Postoperative malabsorption Expected: 09/23/2021, Expires: 11/23/2021 [facility] Work Phone: Comment on above: Expected: 09/23/2021, Expires: 2 Start: 09-23-2021 End: 11-23-2021 Comprehensive metabolic 2000 panel - Serum or Plasma COMP METABOLIC PANEL Lab Routine Gastroesophageal reflux disease, unspecified whether esophagitis present Class 3 severe obesity with serious comorbidity and body mass index (BMI) of 60.0 to 69.9 in adult, unspecified obesity type (HCC) Postoperative malabsorption Expected: 09/23/2021, Expires: 11/23/2021 [facility] Work Phone: Comment on above: Expected: 09/23/2021, Expires: 2 Start: 09-23-2021 End: 11-23-2021 FERRITIN BLD FERRITIN BLD Lab Routine Gastroesophageal reflux disease, unspecified whether esophagitis present Class 3 severe obesity with serious comorbidity and body mass index (BMI) of 60.0 to 69.9 in adult, unspecified obesity type (HCC) Postoperative malabsorption Expected: 09/23/2021, Expires: 11/23/2021 [facility] Work Phone: Comment on above: Expected: 09/23/2021, Expires: 2 Start: 09-23-2021 End: 11-23-2021 Folate [Mass/volume] in Serum or Plasma FOLATE SERUM Lab Routine Gastroesophageal reflux disease, unspecified whether esophagitis present Class 3 severe obesity with serious comorbidity and body mass index (BMI) of 60.0 to 69.9 in adult, unspecified obesity type (HCC) Postoperative malabsorption Expected: 09/23/2021, Expires: 11/23/2021 [facility] Work Phone: Comment on above: Expected: 09/23/2021, Expires: 2 Start: 09-23-2021 End: 11-23-2021 Hemoglobin A1c/Hemoglobin.total in Blood HGB A1C Lab Routine Gastroesophageal reflux disease, unspecified whether esophagitis present Class 3 severe obesity with serious comorbidity and body mass index (BMI) of 60.0 to 69.9 in adult, unspecified obesity type (HCC) Postoperative malabsorption Expected: 09/23/2021, Expires: 11/23/2021 [facility] Work Phone: Comment on above: Expected: 09/23/2021, Expires: 2 Start: 09-23-2021 End: 11-23-2021 IRON + TIBC IRON + TIBC Lab Routine Gastroesophageal reflux disease, unspecified whether esophagitis present Class 3 severe obesity with serious comorbidity and body mass index (BMI) of 60.0 to 69.9 in adult, unspecified obesity type (HCC) Postoperative malabsorption Expected: 09/23/2021, Expires: 11/23/2021 [facility] Work Phone: Comment on above: Expected: 09/23/2021, Expires: 2 Start: 09-23-2021 End: 11-23-2021 LIPID PANEL BASIC LIPID PANEL BASIC Lab Routine Gastroesophageal reflux disease, unspecified whether esophagitis present Class 3 severe obesity with serious comorbidity and body mass index (BMI) of 60.0 to 69.9 in adult, unspecified obesity type (HCC) Postoperative malabsorption Expected: 09/23/2021, Expires: 11/23/2021 [facility] Work Phone: Comment on above: Expected: 09/23/2021, Expires: 2 Start: 09-23-2021 End: 11-23-2021 NICOTINE & METAB, UR NICOTINE & METAB, UR Lab Routine Gastroesophageal reflux disease, unspecified whether esophagitis present Class 3 severe obesity with serious comorbidity and body mass index (BMI) of 60.0 to 69.9 in adult, unspecified obesity type (HCC) Postoperative malabsorption Expected: 09/23/2021, Expires: 11/23/2021 [facility] Work Phone: Comment on above: Expected: 09/23/2021, Expires: 2 Start: 09-23-2021 End: 11-23-2021 PTH INTACT BLD PTH INTACT BLD Lab Routine Gastroesophageal reflux disease, unspecified whether esophagitis present Class 3 severe obesity with serious comorbidity and body mass index (BMI) of 60.0 to 69.9 in adult, unspecified obesity type (HCC) Postoperative malabsorption Expected: 09/23/2021, Expires: 11/23/2021 [facility] Work Phone: Comment on above: Expected: 09/23/2021, Expires: 2 Start: 09-23-2021 End: 11-23-2021 Thyrotropin [Units/volume] in Serum or Plasma TSH BLD Lab Routine Gastroesophageal reflux disease, unspecified whether esophagitis present Class 3 severe obesity with serious comorbidity and body mass index (BMI) of 60.0 to 69.9 in adult, unspecified obesity type (HCC) Postoperative malabsorption Expected: 09/23/2021, Expires: 11/23/2021 [facility] Work Phone: Comment on above: Expected: 09/23/2021, Expires: 2 Start: 09-23-2021 End: 11-23-2021 TOX SCREEN ROUT UR TOX SCREEN ROUT UR Lab Routine Gastroesophageal reflux disease, unspecified whether esophagitis present Class 3 severe obesity with serious comorbidity and body mass index (BMI) of 60.0 to 69.9 in adult, unspecified obesity type (HCC) Postoperative malabsorption Expected: 09/23/2021, Expires: 11/23/2021 [facility] Work Phone: Comment on above: Expected: 09/23/2021, Expires: 2 Start: 09-23-2021 End: 11-23-2021 VITAMIN B1 (THIAMINE), WHOLE BLOOD VITAMIN B1 (THIAMINE), WHOLE BLOOD Lab Routine Gastroesophageal reflux disease, unspecified whether esophagitis present Class 3 severe obesity with serious comorbidity and body mass index (BMI) of 60.0 to 69.9 in adult, unspecified obesity type (HCC) Postoperative malabsorption Expected: 09/23/2021, Expires: 11/23/2021 [facility] Work Phone: Comment on above: Expected: 09/23/2021, Expires: 2 Start: 09-23-2021 End: 11-23-2021 VITAMIN B12 BLOOD VITAMIN B12 BLOOD Lab Routine Gastroesophageal reflux disease, unspecified whether esophagitis present Class 3 severe obesity with serious comorbidity and body mass index (BMI) of 60.0 to 69.9 in adult, unspecified obesity type (HCC) Postoperative malabsorption Expected: 09/23/2021, Expires: 11/23/2021 [facility] Work Phone: Comment on above: Expected: 09/23/2021, Expires: 2 Start: 09-23-2021 End: 11-23-2021 VITAMIN D 25 HYDROXY VITAMIN D 25 HYDROXY Lab Routine Gastroesophageal reflux disease, unspecified whether esophagitis present Class 3 severe obesity with serious comorbidity and body mass index (BMI) of 60.0 to 69.9 in adult, unspecified obesity type (HCC) Postoperative malabsorption Expected: 09/23/2021, Expires: 11/23/2021 [facility] Work Phone: Comment on above: Expected: 09/23/2021, Expires: 2 Start: 08-28-2021 COVID-19 VACCINE (3 - Booster for Pfizer series) COVID-19 VACCINE (3 - Booster for Pfizer series) [facility] Start: 08-28-2021 COVID-19 VACCINE (3 - Pfizer series) COVID-19 VACCINE (3 - Pfizer series) [facility] Start: 06-29-2021 DEPRESSION ASSESSMENT DEPRESSION ASSESSMENT [facility] Start: 05-30-2021 End: 05-30-2021 Nutrition therapy 05/30/2021 Clinical Support Encounter Nutrition and Dietetics Angelo Cedillo, BRENDON [address] [place] [address] [facility] Start: 05-17-2021 End: 05-17-2022 B12/folate level B12 & FOLATE Lab Routine S/P laparoscopic sleeve gastrectomy TONEY on CPAP Morbid obesity with body mass index of 50 or higher Gastroesophageal reflux disease, unspecified whether esophagitis present Other intestinal malabsorption Expected: 05/17/2021, Expires: 05/17/2022 [facility] Comment on above: Expected: 05/17/2021, Expires: 2 Start: 05-17-2021 End: 05-17-2022 Complete blood count with white cell differential, automated CBC, EDIF, PLATELET Lab Routine S/P laparoscopic sleeve gastrectomy TONEY on CPAP Morbid obesity with body mass index of 50 or higher Gastroesophageal reflux disease, unspecified whether esophagitis present Other intestinal malabsorption Expected: 05/17/2021, Expires: 05/17/2022 [facility] Comment on above: Expected: 05/17/2021, Expires: 2 Start: 05-17-2021 End: 05-17-2022 Comprehensive metabolic 2000 panel - Serum or Plasma COMPREHENSIVE METABOLIC PANEL Lab Routine S/P laparoscopic sleeve gastrectomy TONEY on CPAP Morbid obesity with body mass index of 50 or higher Gastroesophageal reflux disease, unspecified whether esophagitis present Other intestinal malabsorption Expected: 05/17/2021, Expires: 05/17/2022 [facility] Comment on above: Expected: 05/17/2021, Expires: 2 Start: 05-17-2021 End: 05-17-2022 Diagnostic radiography of chest, combined PA and lateral XR CHEST PA AND LATERAL Imaging Routine S/P laparoscopic sleeve gastrectomy TONEY on CPAP Morbid obesity with body mass index of 50 or higher Gastroesophageal reflux disease, unspecified whether esophagitis present Other intestinal malabsorption Expected: 05/17/2021, Expires: 05/17/2022 [facility] Comment on above: Expected: 05/17/2021, Expires: 2 Start: 05-17-2021 End: 05-17-2022 Fluoroscopy of upper gastrointestinal tract XR FLUORO UPPER GI, WATER SOLUBLE AND/OR BARIUM CONTRAST Imaging Routine S/P laparoscopic sleeve gastrectomy Gastroesophageal reflux disease, unspecified whether esophagitis present Expected: 05/17/2021, Expires: 05/17/2022 [facility] Comment on above: Expected: 05/17/2021, Expires: 2 Start: 05-17-2021 End: 05-17-2022 Hemoglobin A1c/Hemoglobin.total in Blood HEMOGLOBIN A1C Lab Routine S/P laparoscopic sleeve gastrectomy TONEY on CPAP Morbid obesity with body mass index of 50 or higher Gastroesophageal reflux disease, unspecified whether esophagitis present Other intestinal malabsorption Expected: 05/17/2021, Expires: 05/17/2022 [facility] Comment on above: Expected: 05/17/2021, Expires: 2 Start: 05-17-2021 End: 05-17-2022 IRON/IRON BINDING/TRANSFERRIN IRON/IRON BINDING/TRANSFERRIN Lab Routine S/P laparoscopic sleeve gastrectomy TONEY on CPAP Morbid obesity with body mass index of 50 or higher Gastroesophageal reflux disease, unspecified whether esophagitis present Other intestinal malabsorption Expected: 05/17/2021, Expires: 05/17/2022 [facility] Comment on above: Expected: 05/17/2021, Expires: 2 Start: 05-17-2021 End: 05-17-2022 LIPID PANEL W CALCULATED LDL LIPID PANEL W CALCULATED LDL Lab Routine S/P laparoscopic sleeve gastrectomy TONEY on CPAP Morbid obesity with body mass index of 50 or higher Gastroesophageal reflux disease, unspecified whether esophagitis present Other intestinal malabsorption Expected: 05/17/2021, Expires: 05/17/2022 [facility] Comment on above: Expected: 05/17/2021, Expires: 2 Start: 05-17-2021 End: 05-17-2022 NOVEL CORONAVIRUS LAB 1 - NASOPHARYNGEAL NOVEL CORONAVIRUS LAB 1 - NASOPHARYNGEAL Microbiology STAT Screening for viral disease Expected: 05/17/2021, Expires: 05/17/2022 [facility] Comment on above: Expected: 05/17/2021, Expires: 2 Start: 05-17-2021 End: 05-17-2022 Standard ECG ECG ECG Routine S/P laparoscopic sleeve gastrectomy TONEY on CPAP Morbid obesity with body mass index of 50 or higher Gastroesophageal reflux disease, unspecified whether esophagitis present Other intestinal malabsorption Expected: 05/17/2021, Expires: 05/17/2022 [facility] Comment on above: Expected: 05/17/2021, Expires: 2 Start: 05-17-2021 End: 05-17-2022 Thyrotropin [Units/volume] in Serum or Plasma TSH Lab Routine S/P laparoscopic sleeve gastrectomy TONEY on CPAP Morbid obesity with body mass index of 50 or higher Gastroesophageal reflux disease, unspecified whether esophagitis present Other intestinal malabsorption Expected: 05/17/2021, Expires: 05/17/2022 [facility] Comment on above: Expected: 05/17/2021, Expires: 2 Start: 05-17-2021 End: 05-17-2022 VITAMIN B1 VITAMIN B1 Lab Routine S/P laparoscopic sleeve gastrectomy TONEY on CPAP Morbid obesity with body mass index of 50 or higher Gastroesophageal reflux disease, unspecified whether esophagitis present Other intestinal malabsorption Expected: 05/17/2021, Expires: 05/17/2022 [facility] Comment on above: Expected: 05/17/2021, Expires: 2 Start: 05-17-2021 End: 05-17-2022 VITAMIN D (25-HYDROXY,TOTAL) VITAMIN D (25-HYDROXY,TOTAL) Lab Routine S/P laparoscopic sleeve gastrectomy TONEY on CPAP Morbid obesity with body mass index of 50 or higher Gastroesophageal reflux disease, unspecified whether esophagitis present Other intestinal malabsorption Expected: 05/17/2021, Expires: 05/17/2022 [facility] Comment on above: Expected: 05/17/2021, Expires: 2 Start: 05-17-2021 End: 05-17-2022 ZINC, SERUM ZINC, SERUM Lab Routine S/P laparoscopic sleeve gastrectomy TONEY on CPAP Morbid obesity with body mass index of 50 or higher Gastroesophageal reflux disease, unspecified whether esophagitis present Other intestinal malabsorption Expected: 05/17/2021, Expires: 05/17/2022 [facility] Comment on above: Expected: 05/17/2021, Expires: 2 Start: 02-27-2021 Influenza vaccination INFLUENZA VACCINE (#1) [facility] Start: 04-06-2020 End: 04-06-2021 FL UGI FL UGI Imaging Routine S/P laparoscopic sleeve gastrectomy Expected: 04/06/2020, Expires: 04/06/2021 [place] Comment on above: Expected: 04/06/2020, Expires: Start: 02-28-2020 Influenza vaccination Flu vaccine (#1) [place] Start: 02-27-2020 Pneumococcal 0-64 years Vaccine (2 of 3 - PPSV23) Pneumococcal 0-64 years Vaccine (2 of 3 - PPSV23) [place] Start: 08-31-2019 Hepatitis B Vaccine (3 of 3 - 19+ 3-dose series) Hepatitis B Vaccine (3 of 3 - 19+ 3-dose series) [facility] Start: 2015 HPV TESTING HPV TESTING [facility] Start: 2015 Screening for malignant neoplasm of cervix HPV Testing [facility] Start: 10-16-2011 PAP TESTING PAP TESTING [facility] Start: 10-16-2011 Screening for malignant neoplasm of cervix Pap Testing [facility] Start: 2006 Screening for malignant neoplasm of cervix [facility] Start: 2004 Third diphtheria, tetanus and acellular pertussis (DTaP) vaccination TDAP (ADULT) [facility] Start: 2004 Urine microalbumin profile DTAP,TDAP,TD (1 - Tdap) [facility] Start: 2003 HEPATITIS C SCREENING HEPATITIS C SCREENING [facility] Start: 2003 Hepatitis C screening Hepatitis C Screening [facility] Start: 2003 HIV SCREENING HIV SCREENING [facility] Start: 2003 HIV screening HIV Screening [facility] Start: 2003 Tetanus vaccination TETANUS [facility] Start: 2000 HIV screening [facility] Start: 1995 Meningococcal B vaccine (1 of 4 - Increased Risk Bexsero 2-dose series) Meningococcal B vaccine (1 of 4 - Increased Risk Bexsero 2-dose series) [place] Start: 1990 COVID-19 VACCINE (1) COVID-19 VACCINE (1) [facility] Start: 1986 Varicella vaccine (1 of 2 - 2-dose childhood series) Varicella vaccine (1 of 2 - 2-dose childhood series) [place] Start: 1985 HEPATITIS B (1 of 3 - 3-dose series) HEPATITIS B (1 of 3 - 3-dose series) [facility] Start: 1985 Hepatitis C antibody, confirmatory test HEPATITIS C VIRUS SCREENING [facility] End: 04-02-2020 COVID-19 Ambulatory COVID-19 Ambulatory Lab Routine Preop testing 1 Occurrences starting 04/02/2020 until 04/02/2020 [place] Comment on above: 1 Occurrences starting 04/02/2020 until 04/02/2020 End: 12-04-2022 Ct abdomen & pelvis w/contrast material CT ABD/PEL W IVCON Radiology Routine History of sleeve gastrectomy Gastric fistula 1 Occurrences starting 11/04/2021 until 12/04/2022 [facility] Work Phone: Comment on above: 1 Occurrences starting 11/04/2021 until 12/04/2022 End: 09-23-2022 ECG COMPLETE ECG COMPLETE ECG Routine TONEY on CPAP Gastroesophageal reflux disease, unspecified whether esophagitis present Class 3 severe obesity with serious comorbidity and body mass index (BMI) of 60.0 to 69.9 in adult, unspecified obesity type (HCC) Postoperative malabsorption 1 Occurrences starting 09/23/2021 until 09/23/2022 [facility] Work Phone: Comment on above: 1 Occurrences starting 09/23/2021 until 09/23/2022 End: 05-31-2023 ECG COMPLETE ECG COMPLETE ECG Routine Abnormal weight gain Preop testing Snoring Sleep-disordered breathing Fatigue, unspecified type S/P bariatric surgery BMI 70 and over, adult (HCC) 1 Occurrences starting 06/04/2022 until 05/31/2023 [facility] Work Phone: Comment on above: 1 Occurrences starting 06/04/2022 until 05/31/2023 End: 03-10-2024 ECG COMPLETE ECG COMPLETE ECG Routine Pre-op evaluation Morbid obesity with body mass index of 60.0-69.9 in adult (HCC) Gastroesophageal reflux disease, unspecified whether esophagitis present TONEY on CPAP Bipolar affective disorder, remission status unspecified ([facility]) Thrombocytosis Migraine without status migrainosus, not intractable, unspecified migraine type 1 Occurrences starting 03/10/2023 until 03/10/2024 [facility] Work Phone: Comment on above: 1 Occurrences starting 03/10/2023 until 03/10/2024 Oxygen therapy [[facility] Data Set] Initiate Oxygen Therapy Protocol Respiratory Care Routine Daily until discontinued [facility]: Daily until discontinued starting 2019 Phase I & II - meter ed glucose Phase I & II - metered glucose Point of Care Testing Routine As Needed until discontinued starting 04/06/2020 [facility], RADHA Comment on above: As Needed until discontinued starting End: 05-31-2023 Polysomnogram POLYSOMNOGRAM (PSG) Procedures Routine Abnormal weight gain Preop testing Snoring Sleep-disordered breathing Fatigue, unspecified type S/P bariatric surgery BMI 70 and over, adult (HCC) 1 Occurrences starting 06/04/2022 until 05/31/2023 [facility] Work Phone: Comment on above: 1 Occurrences starting 06/04/2022 until 05/31/2023 End: 10-23-2022 Radiologic exam chest 2 views XR CHEST 2V FRONTAL/LAT Radiology Routine TONEY on CPAP Gastroesophageal reflux disease, unspecified whether esophagitis present Class 3 severe obesity with serious comorbidity and body mass index (BMI) of 60.0 to 69.9 in adult, unspecified obesity type (HCC) Postoperative malabsorption 1 Occurrences starting 09/23/2021 until 10/23/2022 [facility] Work Phone: Comment on above: 1 Occurrences starting 09/23/2021 until 10/23/2022 End: 05-18-2023 Radiologic exam chest 2 views XR CHEST 2V FRONTAL/LAT Radiology Routine BMI 70 and over, adult (HCC) Gastroesophageal reflux disease, unspecified whether esophagitis present 1 Occurrences starting 04/18/2022 until 05/18/2023 [facility] Work Phone: Comment on above: 1 Occurrences starting 04/18/2022 until 05/18/2023 End: 07-01-2023 Radiologic exam chest 2 views XR CHEST 2V FRONTAL/LAT Radiology Routine Abnormal weight gain Preop testing Snoring Sleep-disordered breathing Fatigue, unspecified type S/P bariatric surgery BMI 70 and over, adult (HCC) 1 Occurrences starting 06/04/2022 until 07/01/2023 [facility] Work Phone: Comment on above: 1 Occurrences starting 06/04/2022 until 07/01/2023 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 Procedures Routine BMI 70 and over, adult (HCC) Gastroesophageal reflux disease, unspecified whether esophagitis present Ordered: 04/18/2022 [facility] Work Phone: Comment on above: Ordered: 04/18/2022 Surgical Pathology Surgical Path ology Lab Routine Release Upon Ordering for 1 Occurrences starting 04/06/2020 [place] Comment on above: Release Upon Ordering for 1 Occurrences starting 04/06/2020 End: 10-23-2022 XR UPPER GI SINGLE CONTRAST XR UPPER GI SINGLE CONTRAST Radiology Routine Gastroesophageal reflux disease, unspecified whether esophagitis present S/P laparoscopic sleeve gastrectomy Class 3 severe obesity with serious comorbidity and body mass index (BMI) of 60.0 to 69.9 in adult, unspecified obesity type (HCC) 1 Occurrences starting 09/23/2021 until 10/23/2022 [facility] Work Phone: Comment on above: 1 Occurrences starting 09/23/2021 until 10/23/2022 End: 12-04-2022 XR UPPER GI SINGLE CONTRAST XR UPPER GI SINGLE CONTRAST Radiology Routine History of sleeve gastrectomy Gastric fistula 1 Occurrences starting 11/04/2021 until 12/04/2022 [facility] Work Phone: Comment on above: 1 Occurrences starting 11/04/2021 until 12/04/2022 [facility] c [facility] c [facility] c [facility] c [facility] c [facility] Immunizations Immunization Date Immunization Notes Care Provider Octavio camacho 06-13-2021 Influenza, injectabl e, Madin [place] Canine Kidney, preservative free, quadrivalent Pacc 2 Work Phone: [facility] 06-13-2021 influenza virus vacc ine, unspecified formulation Pacc 2 Work Phone: [facility] 01-04-2020 meningococcal oligosaccharide (groups A, C, Y and W-135) diphtheria toxoid conjugate vaccine (MCV4O) Pacc 2 Work Phone: [facility] 01-04-2020 meningococcal vaccin e of unknown formulation and unknown serogroups [place], [place] 01-02-2020 pneumococcal conjuga te vaccine, 13 valent Pacc 2 Work Phone: [facility] 08-11-2019 tetanus toxoid, redu herbie diphtheria toxoid, and acellular pertussis vaccine, adsorbed Pacc 2 Work Phone: [facility] 06-20-2019 influenza, injectabl e, quadrivalent, preservative free Pacc 2 Work Phone: [facility] 06-07-2019 influenza, injectabl e, quadrivalent, preservative free Pacc 2 Work Phone: [facility] 05-30-2019 influenza, high dose seasonal, preservative-free Pacc 2 Work Phone: [facility] 04-04-2019 hepatitis B vaccine, adult dosage Pacc 2 Work Phone: [facility] 03-02-2019 hepatitis B vaccine, adult dosage Pacc 2 Work Phone: [facility] 05-12-2017 influenza, injectabl e, quadrivalent, preservative free Pacc 2 Work Phone: [facility] 04-27-2015 influenza, injectabl e, madin jared canine kidney, preservative free Pacc 2 Work Phone: [facility] 12-18-2014 haemophilus influenz ae type b vaccine, PRP-T conjugate Pacc 2 Work Phone: [facility] 12-18-2014 meningococcal oligosaccharide (groups A, C, Y and W-135) diphtheria toxoid conjugate vaccine (MCV4O) Pac 2 Work Phone: [facility] Payers Date Payer Category Payer Medicaid [id number] 2022 Self-pay [id number] 2020 Medicaid [id number] 2020 Unknown [id number] 2014 Unknown [id number] 1985 Unknown [id number] [id number] 1985 Unknown [id number] [id number] 1985 Unknown [id number] [id number] 1985 Unknown [id number] [id number] 1985 Unknown [id number] 2.16.840.1.881965.3.579.2.593 1985 Unknown [id number] [id number] 1985 Unknown [id number] 2.16.840.1.459411.3.579.2.593 1985 Unknown [id number] 2.16.840.1.809417.3.579.2.593 1985 Unknown [id number] 2.16.840.1.012002.3.579.2.593 1985 Unknown [id number] 2.16.840.1.428061.3.579.2.593 1985 Unknown [id number] 2.16.840.1.577571.3.579.2.593 1985 Unknown [id number] 2.16.840.1.054902.3.579.2.1259 1985 Unknown [id number] 2.16.840.1.354167.3.579.2.1259 1985 Unknown [id number] 2.16.840.1.005963.3.579.2.1259 1985 Unknown [id number] 2.16.840.1.130117.3.579.2.1259 1985 Unknown [id number] [id number] 1959 Unknown [id number] [id number] Unknown [facility] [employer] MEDICAID Unknown [id number] Unknown [id number] Social History Date Type Detail Facility Start: 04-06-2020 End: 03-10-2023 Tobacco smoking status ILIS Former smoker [facility] Start: 04-06-2020 Tobacco use and exposure Former user [place] Start: 04-06-2020 Alcohol intake Current non-dr buyer liaison of alcohol (finding) [place] Start: 1985 Sex Assigned At Not on file [place] Start: 10-25-2021 End: 02-12-2022 Exposure to SARS-CoV-2 (event) Not sure [place] Start: 05-17-2021 Tobacco smoking stat us ILIS Never smoked tobacco [facility] Start: 05-17-2021 End: 03-10-2023 Tobacco use and exposure Smokeless tobacco non-user [facility] Start: 05-17-2021 Alcohol intake Lifetime non-d suresh (finding) [facility] End: 12-27-2013 History of tobacco use Current smoker [facility] End: 12-27-2013 History of tobacco use Cigarette Smoker [facility] Start: 05-06-2019 End: 01-15-2023 Cigarettes smoked current (pack per day) - Reported 0.5 [facility] Comment on above: [employer]; Start: 09-23-2021 End: 09-07-2023 Alcohol intake Ex-drinker (finding) [facility] Start: 09-23-2021 History SDOH Alcohol Comment None since 2012 [facility] Start: 1985 Sex Assigned At Female C [facility] Start: 12-05-2021 End: 01-15-2023 Sex Assigned At [facility] Adult Depression Screening Assessment 0 [facility] Start: 07-09-2021 Gender identity Identifies as female gender (finding) [facility] Start: 07-09-2021 Sexual orientation Heterosexual (davide vital) [facility] Has the [employer], or water [employer] threatened to shut off services in your home in past 12Mo No [facility] (I/We) worried wheth er (my/our) food would run out before (I/we) got money to buy more. Never true [facility] [facility] Clinical Notes 05-17-2021 to 09-07-2023 Jayshree Huffman APRN.CNP - 09/07/2023 9:35 AM EDTPatient InstructionsSoRupinder gaston RD - 08/31/2023 9:45 AM ESTPatient InstructionsAlex Monsivais RD - 08/19/2023 12:15 PM ESTPatient Instructions Note Date & Type Note Facility 09-07-2023 Note HNO ID: [id number] Author: JAYSHREE HUFFMAN APRN.KATTY Service: ? Author Type: Nurse Practitioner Type: Progress Notes Filed: 09/07/2023 10:12 Note Text: BMI SURGERY Post Op Clinic Note September 07, 2023 INTERVAL HISTORY: Susi Ortiz is here for 1 month post op visit. Her wound is still draining but from a different area now. Drainage is thin, clear but dries yellow. Mild odor Oozes more with standing Index Surgery Date of Surgery: 08/04/2023 Surgeon: Joe Granda MD Surgical Procedure: GASTRECTOMY, GASTRIC RESTRICTIVE PARTIAL (50 TO 100 CM COMMON CHANNEL) TO LIMIT ABSORPTION Pre-surgical weight: 176 kg (388 lb 0.2 oz) Override Index Surgery Information? No Other Bariatric Surgeries Date of Surgery Surgeon Procedure 03/31/2023 Joe Granda MD LAPAROSCOPY ENTEROLYSIS Visit: 4 weeks Today's Visit: Wt 169.9 kg (374 lb 8 oz) BMI 64.28 kg/m2 BMI 64.28 kg/(m2) Last Visit: Wt: 164.2 kg (362 lb) BMI: 62.14 kg/(m2) Total weight loss: 6.128 kg (13 lb 8.2 oz) Reeder weight: 66.1 kg (145 lb 10.6 oz) Excess weight: 109.9 kg (242 lb 5.6 oz) % of excess body weight lost: 6.128 kg (13 lb 8.2 oz) (5.57% of excess weight loss) COMPLICATIONS SINCE LAST VISIT?: Incisional drainage DIET INTAKE: compliant with Phase 3 diet - will add veggies next week Looking for a new protein shake- premier making her sick DAILY SUPPLEMENTS: Calcium: Calcium Citrate w/ vitamin D (1200 - 1500mg) Multivitamin AND Minerals: leida/DS vitamin Iron Supplement: included in multi-vitamin Vitamin B12: included in multivitamin Vitamin D3: included in multi-vitamin Other: biotin EXERCISE: limited Current Outpatient Medications Medication Sig omeprazole (PRILOSEC) 40 mg capsule Take 1 capsule by mouth once daily. ondansetron orally disintegrating (ZOFRAN ODT) 4 mg disintegrating tablet dissolve 1 tablet in mouth every 8 hours as needed for nausea/vomiting. busPIRone (BUSPAR) 15 mg tablet Take 1 tablet by mouth every 12 hours. cetirizine (ZYRTEC) 10 mg tablet Take 1 tablet by mouth every afternoon. hydrOXYzine pamoate (VISTARIL) 50 mg capsule Take 50 mg by mouth at bedtime as needed. OXcarbazepine (TRILEPTAL) 300 mg tablet Take 300 mg by mouth daily at bedtime. levonorgestrel (MIRENA) 21 mcg/24 hours (8 yrs) 52 mg IUD 1 Each by INTRAUTERINE route one time only. montelukast (SINGULAIR) 10 mg tablet Take 10 mg by mouth daily at bedtime. ARIPiprazole (ABILIFY) 10 mg tablet Take 10 mg by mouth daily at bedtime. lamoTRIgine (LAMICTAL) 100 mg tablet Take 100 mg by mouth every morning. prazosin (MINIPRESS) 1 mg cap Take 1 mg by mouth daily at bedtime. propranolol (INDERAL) 60 mg tablet Take 60 mg by mouth twice daily. DULoxetine (CYMBALTA) 60 mg capsule Take 60 mg by mouth once daily. enoxaparin (LOVENOX) 60 mg/0.6 mL syrg Inject 0.6 mL subcutaneously every 12 hours. (Patient not taking: Reported on 09/07/2023) No current facility-administered medications for this visit. REVIEW OF SYSTEMS: +drainage from incisions - no fevers, nausea, vomiting, diarrhea or constipation Denies dumping syndrome, reactive hypoglycemia, gustatory rhinorrhea, Denies abdominal pain, melena, hematochezia, Denies paresthesias, gait abnormality, fatigue, weakness, lower extremity edema, and Denies taking NSAIDs PHYSICAL EXAM: BP 107/81 Pulse 80 Temp 36.7 ?C (98 ?F) (Oral) Ht 162.6 cm (5' 4 ) Wt (!) 169.9 kg (374 lb 8 oz) LMP 07/08/2023 (Approximate) BMI 64.28 kg/m? GENERAL: AANDO, pleasant, NAD RESPIRATORY: non labored ABDOMEN: soft, no tenderness or distention Incision: small opening apx 2 mm, clear drainage expressed. (Examined by Dr Granda). Remainder of incision is closed and healing well NEURO: grossly intact Assessment / PLAN: Susi Ortiz is a 38 year old female with Class III obesity who presented today for 1 month post op follow up s/p GASTRECTOMY, GASTRIC RESTRICTIVE PARTIAL (50 TO 100 CM COMMON CHANNEL) TO LIMIT ABSORPTION - incision draining clear fluid, will monitor for now, pt is keeping it clean and covered. She will call the office with any changes in drainage or appearance of incision - Discussed options for increasing protein intake which will help with both healing and further weight loss - Activity: no heavy lifting/pushing/pulling > 15 lbs until 3 months post op. She can participate in low impact cardio - walking, treadmill, stairs, stationary bike etc. LABS: prior to 3 months follow up: See Epic Orders FOLLOW UP: as scheduled Jayshree Huffman APRN.PRE SALES TECHNICAL CONSULTANT [facility] 09-07-2023 History of Presen t illness Narrative BMI SURGERY Post Op Clinic Note September 07, 2023 INTERVAL HISTORY: Susi Ortiz is here for 1 month post op visit. Her wound is still draining but from a different area now. Drainage is thin, clear but dries yellow. Mild odor Oozes more with standing Index Surgery Date of Surgery: 08/04/2023 Surgeon: Joe Granda MD Surgical Procedure: GASTRECTOMY, GASTRIC RESTRICTIVE PARTIAL (50 TO 100 CM COMMON CHANNEL) TO LIMIT ABSORPTION Pre-surgical weight: 176 kg (388 lb 0.2 oz) Override Index Surgery Information? No Other Bariatric Surgeries Date of Surgery Surgeon Procedure 03/31/2023 Joe rGanda MD LAPAROSCOPY ENTEROLYSIS Visit: 4 weeks Today's Visit: Wt 169.9 kg (374 lb 8 oz) BMI 64.28 kg/m2 BMI 64.28 kg/(m^2) Last Visit: Wt: 164.2 kg (362 lb) BMI: 62.14 kg/(m^2) Total weight loss: 6.128 kg (13 lb 8.2 oz) Reeder weight: 66.1 kg (145 lb 10.6 oz) Excess weight: 109.9 kg (242 lb 5.6 oz) % of excess body weight lost: 6.128 kg (13 lb 8.2 oz) (5.57% of excess weight loss) COMPLICATIONS SINCE LAST VISIT?: Incisional drainage DIET INTAKE: compliant with Phase 3 diet - will add veggies next week Looking for a new protein shake- premier making her sick DAILY SUPPLEMENTS: Calcium: Calcium Citrate w/ vitamin D (1200 - 1500mg) Multivitamin & Minerals: leida/DS vitamin Iron Supplement: included in multi-vitamin Vitamin B12: included in multivitamin Vitamin D3: included in multi-vitamin Other: biotin EXERCISE: limited Current Outpatient Medications Medication Sig omeprazole (PRILOSEC) 40 mg capsule Take 1 capsule by mouth once daily. ondansetron orally disintegrating (ZOFRAN ODT) 4 mg disintegrating tablet dissolve 1 tablet in mouth every 8 hours as needed for nausea/vomiting. busPIRone (BUSPAR) 15 mg tablet Take 1 tablet by mouth every 12 hours. cetirizine (ZYRTEC) 10 mg tablet Take 1 tablet by mouth every afternoon. hydrOXYzine pamoate (VISTARIL) 50 mg capsule Take 50 mg by mouth at bedtime as needed. OXcarbazepine (TRILEPTAL) 300 mg tablet Take 300 mg by mouth daily at bedtime. levonorgestrel (MIRENA) 21 mcg/24 hours (8 yrs) 52 mg IUD 1 Each by INTRAUTERINE route one time only. montelukast (SINGULAIR) 10 mg tablet Take 10 mg by mouth daily at bedtime. ARIPiprazole (ABILIFY) 10 mg tablet Take 10 mg by mouth daily at bedtime. lamoTRIgine (LAMICTAL) 100 mg tablet Take 100 mg by mouth every morning. prazosin (MINIPRESS) 1 mg cap Take 1 mg by mouth daily at bedtime. propranolol (INDERAL) 60 mg tablet Take 60 mg by mouth twice daily. DULoxetine (CYMBALTA) 60 mg capsule Take 60 mg by mouth once daily. enoxaparin (LOVENOX) 60 mg/0.6 mL syrg Inject 0.6 mL subcutaneously every 12 hours. (Patient not taking: Reported on 09/07/2023) No current facility-administered medications for this visit. REVIEW OF SYSTEMS: +drainage from incisions - no fevers, nausea, vomiting, diarrhea or constipation Denies dumping syndrome, reactive hypoglycemia, gustatory rhinorrhea, Denies abdominal pain, melena, hematochezia, Denies paresthesias, gait abnormality, fatigue, weakness, lower extremity edema, and Denies taking NSAIDs PHYSICAL EXAM: BP 107/81 Pulse 80 Temp 36.7 C (98 F) (Oral) Ht 162.6 cm (5' 4 ) Wt (!) 169.9 kg (374 lb 8 oz) LMP 07/08/2023 (Approximate) BMI 64.28 kg/m GENERAL: A&O, pleasant, NAD RESPIRATORY: non labored ABDOMEN: soft, no tenderness or distention Incision: small opening apx 2 mm, clear drainage expressed. (Examined by Dr Granda). Remainder of incision is closed and healing well NEURO: grossly intact Assessment / PLAN: Susi Ortiz is a 38 year old female with Class III obesity who presented today for 1 month post op follow up s/p GASTRECTOMY, GASTRIC RESTRICTIVE PARTIAL (50 TO 100 CM COMMON CHANNEL) TO LIMIT ABSORPTION - incision draining clear fluid, will monitor for now, pt is keeping it clean and covered. She will call the office with any changes in drainage or appearance of incision - Discussed options for increasing protein intake which will help with both healing and further weight loss - Activity: no heavy lifting/pushing/pulling > 15 lbs until 3 months post op. She can participate in low impact cardio - walking, treadmill, stairs, stationary bike etc. LABS: prior to 3 months follow up: See Epic Orders FOLLOW UP: as scheduled Jayshree Huffman APRN.CNP documented in this encounter [facility] 08-31-2023 Note HNO ID: [id number] Author: CHRISTOPHER SANTIAGO, PhD Service: ? Author Type: Psychologist Type: Progress Notes Filed: 08/31/2023 11:36 Note Text: [facility] Cost Center: [facility] Billing code: Gautam CPT Code: 09205 GROUP PSYCHOTHERAPY 65361 Brief Emotional/Behavioral Assessment with scoring/documentation (3 units) Bariatric Behavioral Services Progress Note 08/31/2023 Start/Stop Time: 10:30am to 11:15am Surgery date: 08/04/23 Current weight: 362 lbs. Pre-surgical weight: 388 lbs. Surgeon: Dr. Granda Type of surgery: Open Duodenal Switch Psychologist: Judy Barrow, Ph.D. Psychologist This appointment was conducted remotely via video virtual visit. The patient e-signed the Informed Consent for Psychological Evaluation AND Care Form, and the behavioral health care insurance benefits, fees for service, emergency procedures, and the limits of confidentiality that may pertain with any given case were discussed with the patient. The patient was given a copy of the consent form on testhub. The patient consented to a virtual visit and their location was confirmed. I have communicated my name and active licensure. The patient's identity and physical location were verified at the time of this visit. Either the patient or their legal asset protection representative has been informed of the risks and benefits of -- and alternatives to -- treatment through a remote evaluation and consents to proceed with the evaluation remotely. Subjective: Patient attended a one month postsurgery behavioral health psychotherapy session in an group, virtual format. Patients were reminded of the limits of confidentiality in the group setting and agreed to hold in confidence all matters discussed in the group. The patient's hospital experience and adjustment postsurgery were discussed. Patient discussed benefits they were experiencing after surgery and processed complications. Tools to enhance postsurgical outcomes, including coping skills for social situations and resources such as bariatric support groups, were offered. Patient set goals for lifestyle changes to enhance surgical outcomes. Patient identified challenges to accomplishing goals and lifestyle changes. Discussed normalization of adjustment issues. Topics discussed included: maintaining motivation, managing weight loss plateaus, risks of alcohol, tobacco, and substances after surgery, coping with stress, managing social reactions, implementing regular exercise, changes in mood, and maladaptive eating patterns. Interventions included: self-monitoring, goal setting, delay/distraction, implementing regular meals/planning, engaging supports/support groups, cognitive challenging/restructuring, and mindfulness. Post-surgically, the patient reports the following medical complications: leaking from incision. The following post-surgical psychological complications were reported: None reported. The patient reports the following health behaviors: obtaining 64 oz of water, eating regular meals, taking vitamins, eating slowly, and eating AND drinking. The patients notes the following problematic behaviors: difficulty obtaining 60 gm protein a day and not exercising. Note that pt denies nicotine use; however, camera was pointed above pt's head for a few minutes during appointment, and smoke was visible. This could be from humidifier, non-nicotine vapor product, another individual in the home, or another cause. Encouraged continuing to avoid all substances including nicotine. Messaged team about concerns. Patient has noticed the following benefits postsurgery with weight loss: improvement in health. Future goals include: continued weight loss, start/increase exercise, and improve health problems Objective: Affect is: Mood congruent. Patient Data Alcohol Use Disorders Identification Test - Short Version (AUDIT-C) AUDIT-C 04/23/2023 08/26/2023 TOTAL SCORE 0 0 How often do you have a drink containing alcohol? Never Never How many drinks containing alcohol do you have on a typical day when you are drinking? 0 - 2 0 - 2 How often do you have four or more drinks on one occasion? Never Never In men, a score of 4 or more is considered positive; in women, a score of 3 or more is considered positive. Generally, the higher the AUDIT-C score, the more likely it is that the patient's drinking is affecting his/her health and safety Generalized Anxiety Disorder Scale (KHALIF-7) KHALIF - 7 SCORES 06/28/2022 04/23/2023 08/26/2023 KHALIF-7 Score 0 0 0 (0-4) minimal anxiety, (5-9) mild anxiety, (10-14) moderate anxiety, (15-21) severe anxiety Patient Health Questionnaire (PHQ-9) PHQ-9 06/28/2022 04/23/2023 08/26/2023 Score 3 6 4 (0-4) minimal depression, (5-9) mild depression, (10-14) moderate depression, (15-19) moderately severe depression, (20-27) severe depression PROMIS Global Health PROMIS Global Health (more content not included)... [facility] 08-31-[address] - 08/31/2023 12:14 PM EST Reviewed nutrition principles of: 1. Continue to take all recommended vitamin/minerals - ProCare DS/LEIDA Bariatric multivitamin with 60 mg Iron (1x per day) AND 0227-8434 mg calcium citrate daily 2. Protein goal: 96-128 grams protein/day 3. Fluid goal: 64 ounces per day (no carbonation, caffeine, calories, alcohol) 4. Exercise goal: increase as tolerated to goal of 200 minutes/week combination cardiovascular and strength training exercise. 5. Practice mindful eating habits-take small portions, eat slowly, chew thoroughly, separate food and drink by 30 min before and after eating You may advance your diet to phase IV ~2 months post op. Refer to your BMI Guideline booklet for recipes and instructions. The goal is to consume at least 96-128 grams of protein per day with the addition of adding vegetables. Inadequate protein intake can lead to fatigue, loss of lean body mass and increase your risk of infection and other illnesses. Consume 3-4 ounces of protein 3 times per day (3-4 ounces for breakfast; 3-4 ounces for lunch; 3-4 ounces for dinner). As an estimate, 1 ounce of protein is approximately 7 grams. For example, if you consume 3 ounces of chicken, this would equal approximately 21 grams of protein. Always eat your protein foods first before eating the vegetable. Do not begin eating your vegetable first. Vegetables contain little or no protein and protein is essential. During Phase IV, no breads, no cereals, no rice, no noodles, no pastas, no crackers, no potatoes (sweet or white), no yams, no corn, no plantain, no yucca, no fruits, no fruit juices, no carbonation, no caffeine, no alcoholic beverages. Continue to consume sugar-free, noncarbonated, decaffeinated clear liquids in between high protein foods for a total of 64 ounces (8 cups) per day Follow the 30-Minute Rule to fluid intake: Wait 30 minutes before and after your food to drink fluids. Important considerations about adding vegetables: When incorporating vegetables, it is recommended that you begin with softly cooked vegetables first. Avoid vegetables that do not become soft when cooked. Avoid fibrous stalks like those found in asparagus, broccoli, celery, stalks of uriel lettuce, kale, etc. Be cautious of seeds and peels. You may introduce raw vegetables only after you can tolerate a variety of cooked vegetables. Remember to always check for food tolerance. Slowly increase your variety of choices only after you know that you can tolerate it. When eating raw vegetables, it is recommended that you first try softer vegetables such as broccoli florets, Hidalgo lettuce, red-leaf lettuce or Victoria lettuce. Remember to chew vegetables thoroughly (chew 25 times) and swallow only when chewing has made it into a mushy pureed consistency. If you have trouble with gas, avoid eating gas-producing vegetables such as onions, cauliflower, garlic, scallions, leeks, Newcomb sprouts and cabbage. Avoid starchy vegetables such as potatoes (sweet and white), yams, yucca, plantain and corn at this time. Nutrition Monitoring & Evaluation: BMI < 60 Criteria: weight check and patient update Need for Follow up: 3 months post op, scheduling [phone] documented in this encounter [facility] 08-31-2023 Note HNO ID: [id number] Author: RUPINDER COLBERT RD Service: ? Author Type: Registered Dietitian Type: Progress Notes Filed: 08/31/2023 12:14 Note Text: I have communicated my name and active licensure. The patient's identity and physical location were verified at the time of this visit. Either the patient or their legal asset protection representative has been informed of the risks and benefits of -- and alternatives to -- treatment through a remote evaluation and consents to proceed with the evaluation remotely. Patient reports weight (as measured by home scale) of 362 pounds. AMBULATORY PATIENT EDUCATION NOTE-Shared Nutrition Group TOPIC: LIFE STYLE CHANGES: Post-op weight loss surgery: Diet and Exercise READINESS TO LEARN COGNITIVE ABILITY: Alert and oriented MOTIVATION TO LEARN: Interested FAMILY SUPPORT: Unable to assess - Family not present INSTRUCTION PROVIDED TO: Patient and group PATIENT LEARNS BEST BY: Multiple Methods FACTORS AFFECTING LEARNING: None PHYSICAL LIMITATIONS AFFECTING LEARNING: None LEARNING RESPONSE DIAGNOSIS: Inadequate protein-energy intake, related to: altered GI tract, as evidenced by s/p bariatric surgery Overweight Obesity, related to; food and nutrition related knowledge deficit, as evidenced by BMI above normative standard for age and gender Malnutrition Screening Significant unintentional weight loss? No Eating less than 75% of usual intake for more than 2 weeks? Yes, advancing diet per bariatric protocol Nutritional status: METHOD OF INSTRUCTION: Individual instruction Group class instruction PATIENT / FAMILY RESPONSE: Nutrition outcome statement: Expect attention to diet to assist with weight management and minimum 1200 calories/2 liters of fluids per day. 1 months post op BPD-DS ([facility]e 08/04/23) Net weight loss 39 pounds (401 lbs initial) Pre-surgery weight: 388 pounds (26 lbs lost since surgery) 7% TWL tracking as anticipated from surgery Weight loss since last session 7 lbs (369.1 lbs) Diet recall indicates consistent eating pattern with small meals. She is following phase III diet appropriate, however struggling to meet elevated protein needs due to small portions. She continues using protein shake to help supplement intake but feels she is not tolerating well - may benefit from trying lactose free or plant based option. Beverages are appropriate with primarily water and diet juice. She is adherent with taking recommended vitamins. Gradually increasing physical activity yet falls below recommendations. 600-800 calories/day - not meeting needs 70-80 g protein/day - not meeting needs >64 oz fluid/day - adequate Taking daily vitamin/minerals - ProCare DS and 2400 mg calcium citrate. Labs not available to assess Resting Metabolic Rate: 2308 Energy needs for weight loss 5913-6158 kcal/day (10-15 harpreet/kg current weight) Protein needs: 96-128 grams protein per day (1.2 g/kg IBW kg) Reviewed nutrition principles of: 1. Continue to take all recommended vitamin/minerals - ProCare DS/LEIDA Bariatric multivitamin with 60 mg Iron (1x per day) AND 8909-9169 mg calcium citrate daily 2. Protein goal: 96-128 grams protein/day 3. Fluid goal: 64 ounces per day (no carbonation, caffeine, calories, alcohol) 4. Exercise goal: increase as tolerated to goal of 200 minutes/week combination cardiovascular and strength training exercise. 5. Practice mindful eating habits-take small portions, eat slowly, chew thoroughly, separate food and drink by 30 min before and after eating You may advance your diet to phase IV ~2 months post op. Refer to your BMI Guideline booklet for recipes and instructions. The goal is to consume at least 96-128 grams of protein per day with the addition of adding vegetables. Inadequate protein intake can lead to fatigue, loss of lean body mass and increase your risk of infection and other illnesses. Consume 3-4 ounces of protein 3 times per day (3-4 ounces for breakfast; 3-4 ounces for lunch; 3-4 ounces for dinner). As an estimate, 1 ounce of protein is approximately 7 grams. For example, if you consume 3 ounces of chicken, this would equal approximately 21 grams of protein. Always eat your protein foods first before eating the vegetable. Do not begin eating your vegetable first. Vegetables contain little or no protein and protein is essential. During Phase IV, no breads, no cereals, no rice, no noodles, no pastas, no crackers, no potatoes (sweet or white), no yams, no corn, no plantain, no yucca, no fruits, no fruit juices, no carbonation, no caffeine, no alcoholic beverages. Continue to consume sugar-free, noncarbonated, decaffeinated clear liquids in between high protein foods for a total of 64 ounces (8 cups) per day Follow the ?30-Minute Rule? to fluid intake: Wait 30 minutes before and after your food to drink fluids. Important considerations about adding vegetables: When incorporating vegetables, it is recommended (more content not included)... [facility] 08-31-2023 History of Presen t illness Narrative I have communicated my name and active licensure. The patient's identity and physical location were verified at the time of this visit. Either the patient or their legal asset protection representative has been informed of the risks and benefits of -- and alternatives to -- treatment through a remote evaluation and consents to proceed with the evaluation remotely. Patient reports weight (as measured by home scale) of 362 pounds. AMBULATORY PATIENT EDUCATION NOTE-Shared Nutrition Group TOPIC: LIFE STYLE CHANGES: Post-op weight loss surgery: Diet and Exercise READINESS TO LEARN COGNITIVE ABILITY: Alert and oriented MOTIVATION TO LEARN: Interested FAMILY SUPPORT: Unable to assess - Family not present INSTRUCTION PROVIDED TO: Patient and group PATIENT LEARNS BEST BY: Multiple Methods FACTORS AFFECTING LEARNING: None PHYSICAL LIMITATIONS AFFECTING LEARNING: None LEARNING RESPONSE DIAGNOSIS: Inadequate protein-energy intake, related to: altered GI tract, as evidenced by s/p bariatric surgery Overweight Obesity, related to; food and nutrition related knowledge deficit, as evidenced by BMI above normative standard for age and gender Malnutrition Screening Significant unintentional weight loss? No Eating less than 75% of usual intake for more than 2 weeks? Yes, advancing diet per bariatric protocol Nutritional status: METHOD OF INSTRUCTION: Individual instruction Group class instruction PATIENT / FAMILY RESPONSE: Nutrition outcome statement: Expect attention to diet to assist with weight management and minimum 1200 calories/2 liters of fluids per day. 1 months post op BPD-DS ([facility]e 08/04/23) Net weight loss 39 pounds (401 lbs initial) Pre-surgery weight: 388 pounds (26 lbs lost since surgery) 7% TWL tracking as anticipated from surgery Weight loss since last session 7 lbs (369.1 lbs) Diet recall indicates consistent eating pattern with small meals. She is following phase III diet appropriate, however struggling to meet elevated protein needs due to small portions. She continues using protein shake to help supplement intake but feels she is not tolerating well - may benefit from trying lactose free or plant based option. Beverages are appropriate with primarily water and diet juice. She is adherent with taking recommended vitamins. Gradually increasing physical activity yet falls below recommendations. 600-800 calories/day - not meeting needs 70-80 g protein/day - not meeting needs >64 oz fluid/day - adequate Taking daily vitamin/minerals - ProCare DS and 2400 mg calcium citrate. Labs not available to assess Resting Metabolic Rate: 2308 Energy needs for weight loss 2594-6020 kcal/day (10-15 harpreet/kg current weight) Protein needs: 96-128 grams protein per day (1.2 g/kg IBW kg) Reviewed nutrition principles of: 1. Continue to take all recommended vitamin/minerals - ProCare DS/LEIDA Bariatric multivitamin with 60 mg Iron (1x per day) AND 3254-2109 mg calcium citrate daily 2. Protein goal: 96-128 grams protein/day 3. Fluid goal: 64 ounces per day (no carbonation, caffeine, calories, alcohol) 4. Exercise goal: increase as tolerated to goal of 200 minutes/week combination cardiovascular and strength training exercise. 5. Practice mindful eating habits-take small portions, eat slowly, chew thoroughly, separate food and drink by 30 min before and after eating You may advance your diet to phase IV ~2 months post op. Refer to your BMI Guideline booklet for recipes and instructions. The goal is to consume at least 96-128 grams of protein per day with the addition of adding vegetables. Inadequate protein intake can lead to fatigue, loss of lean body mass and increase your risk of infection and other illnesses. Consume 3-4 ounces of protein 3 times per day (3-4 ounces for breakfast; 3-4 ounces for lunch; 3-4 ounces for dinner). As an estimate, 1 ounce of protein is approximately 7 grams. For example, if you consume 3 ounces of chicken, this would equal approximately 21 grams of protein. Always eat your protein foods first before eating the vegetable. Do not begin eating your vegetable first. Vegetables contain little or no protein and protein is essential. During Phase IV, no breads, no cereals, no rice, no noodles, no pastas, no crackers, no potatoes (sweet or white), no yams, no corn, no plantain, no yucca, no fruits, no fruit juices, no carbonation, no caffeine, no alcoholic beverages. Continue to consume sugar-free, noncarbonated, decaffeinated clear liquids in between high protein foods for a total of 64 ounces (8 cups) per day Follow the 30-Minute Rule to fluid intake: Wait 30 minutes before and after your food to drink fluids. Important considerations about adding vegetables: When incorporating vegetables, it is recommended that you begin with softly cooked vegetables first. Avoid vegetables that do not become soft when cooked. Avoid fibrous stalks like those found in asparagus, broccoli, celery, stalks of uriel lettuce, kale, etc. Be cautious of seeds and peels. You may introduce raw vegetables only after you can tolerate a variety of cooked vegetables. Remember to always check for food tolerance. Slowly increase your variety of choices only after you know that you can tolerate it. When eating raw vegetables, it is recommended that you first try softer vegetables such as broccoli florets, Claudio lettuce, red-leaf lettuce or Victoria lettuce. Remember to chew vegetables thoroughly (chew 25 times) and swallow only when chewing has made it into a mushy pureed consistency. If you have trouble with gas, avoid eating gas-producing vegetables such as onions, cauliflower, garlic, scallions, leeks, Newcomb sprouts and cabbage. Avoid starchy vegetables such as potatoes (sweet and white), yams, yucca, plantain and corn at this time. Nutrition Monitoring & Evaluation: BMI < 60 Criteria: weight check and patient update Need for Follow up: 3 months post op, scheduling [phone] Appointment Start Time: 9:45am Appointment End Time: 10:35am Time Spent on Consult: 50 minutes - Group Rupinder Colbert RD documented in this encounter [facility] 08-19-2023 Note HNO ID: [id number] Author: ALEX MONSIVAIS RD Service: ? Author Type: Registered Dietitian Type: Progress Notes Filed: 08/19/2023 12:19 Note Text: This visit was performed virtually due to the COVID-19 epidemic as an effort to protect patients and minimize exposure. Consent from patient received to conduct visit virtually. This Team Access Model visit is a virtual GROUP encounter. It required patient-provider interaction for the medical decision making as documented below. I have communicated my name and active licensure. The patient?s identity and physical location were verified at the time of this visit. Either the patient or their legal asset protection representative has been informed of the risks and benefits of -- and alternatives to -- treatment through a remote evaluation and consents to proceed with the evaluation remotely. Patient reports weight (as measured by home scale) of 369.1 pounds. AMBULATORY PATIENT EDUCATION NOTE-Shared Nutrition Group TOPIC: LIFE STYLE CHANGES: Post-op weight loss surgery: Diet and Exercise READINESS TO LEARN COGNITIVE ABILITY: Alert and oriented MOTIVATION TO LEARN: Interested FAMILY SUPPORT: Unable to assess - Family not present INSTRUCTION PROVIDED TO: Patient PATIENT LEARNS BEST BY: Multiple Methods FACTORS AFFECTING LEARNING: None PHYSICAL LIMITATIONS AFFECTING LEARNING: None LEARNING RESPONSE DIAGNOSIS: Inadequate protein-energy intake, related to: s/p bariatric surgery, as evidenced by patient update, diet recall, and group discussion Overweight Obesity, related to; food/nutrition - related knowledge deficit, as evidenced by BMI above normative standard for age and gender Malnutrition Screening Significant unintentional weight loss? No Eating less than 75% of usual intake for more than 2 weeks? Yes, advancing diet per bariatric protocol Nutritional status: METHOD OF INSTRUCTION: Individual instruction Group class instruction PATIENT / FAMILY RESPONSE: Nutrition outcome statement: Expect attention to diet to assist with weight management and minimum 500 calories/2 liters of fluids per day. Patient participated in a 2 week post-op shared nutrition group. Post-op weight loss surgery (BPD w/ DS) (Dr. Granda) . Weight loss: 32 lbs since initial assessment (401 lbs); 8% loss total body weight. Pre surgery weight: 388 lbs. Weight loss tracking as expected from surgery. Tolerating phase 3 diet without difficulty. Protein needs estimated at 96-128 grams protein per day (1.5- 2.0 g/kg IBW kg). Current intake meeting ~ 70% protein needs. Fluid consumption adequate and includes water as primary beverage Patient not yet taking recommended vitamin/minerals, however plans for NimbusBase ADEK + 2000 mg calcium citrate. Exercise includes walking most days. Labs not available to evaluate. Reviewed nutrition principles of: 1. Continue vitamins Research post-op vitamins for LEIDA/DS procedure: - Bariatric Fusion ADEK Complete Capsule (3x per day) AND 1470-2564 mg calcium citrate OR - Bariatric Advantage High ADEK Chewable Multivitamin (2x per day) AND 0680-7876 mg calcium citrate OR -Celebrate multi-ADEK chewable (3x per day) AND 2321-7002 mg calcium citrate AND 1 chewable Iron 45-60 mg AND OR -ProCare DS/LEIDA Bariatric multivitamin with 60 mg Iron (1x per day) AND 2487-7647 mg calcium citrate daily 2. Protein goal: 96-128 grams protein/day 3. Fluid goal: 64 ounces per day (no carbonation, caffeine, calories, alcohol) - separate foods and fluids by 20 minutes, small sips, no straw 4. Exercise goal: begin low intensity exercise until cleared by surgeon. 5. Practice mindful eating habits-take small portions, eat slowly, and chew thoroughly You have lost 8% total weight loss (average 6-9% at 1 month) The Bariatric [facility] Metabolic [place] [facility] has 2 virtual support group meetings: This is the iOculi link with meeting number that will be used for all of the THURSDAY virtual support groups this year, on the Thursday of each month 5:30-6:30PM Join from the meeting link [email or web address] Join by meeting number Meeting number (access code): [phone] Meeting password: [email or web address] The schedule with dates, times, topics, and facilitators can be found here: [email or web address] This is the iOculi link with meeting number that will be used for the Open Discussion ( Food for Thought ) support group on the Thursday of each month 5:30-6:30PM Join from the meeting link [email or web address] Join by meeting number Meeting number (access code): [phone] Meeting password: [email or web address] Hope to see you there! Nutrition Monitoring AND Evaluation: Advance diet to phase 3 by next visit Criteria: patient recall Need for Follow up: 1 month (more content not included)... [facility] 08-19-[address] - 08/19/2023 12:18 PM EST 1. Continue vitamins Research post-op vitamins for LEIDA/DS procedure: - Bariatric Fusion ADEK Complete Capsule (3x per day) AND 6073-8762 mg calcium citrate OR - Bariatric Advantage High ADEK Chewable Multivitamin (2x per day) AND 7668-1159 mg calcium citrate OR -Celebrate multi-ADEK chewable (3x per day) AND 0073-8595 mg calcium citrate AND 1 chewable Iron 45-60 mg AND OR -ProCare DS/LEIDA Bariatric multivitamin with 60 mg Iron (1x per day) AND 8810-5296 mg calcium citrate daily 2. Protein goal: 96-128 grams protein/day 3. Fluid goal: 64 ounces per day (no carbonation, caffeine, calories, alcohol) - separate foods and fluids by 20 minutes, small sips, no straw 4. Exercise goal: begin low intensity exercise until cleared by surgeon. 5. Practice mindful eating habits-take small portions, eat slowly, and chew thoroughly You have lost 8% total weight loss (average 6-9% at 1 month) The [facility] [place] has 2 virtual support group meetings: This is the iOculi link with meeting number that will be used for all of the THURSDAY virtual support groups this year, on the Thursday of each month 5:30-6:30PM Join from the meeting link [email or web address] Join by meeting number Meeting number (access code): [phone] Meeting password: [email or web address] The schedule with dates, times, topics, and facilitators can be found here: [email or web address] This is the iOculi link with meeting number that will be used for the Open Discussion ( Food for Thought ) support group on the Thursday of each month 5:30-6:30PM Join from the meeting link [email or web address] Join by meeting number Meeting number (access code): [phone] Meeting password: [facility] Hope to see you there! Nutrition Monitoring & Evaluation: Advance diet to phase 3 by next visit Criteria: patient recall Need for Follow up: 1 month post op documented in this encounter [facility] 08-19-2023 History of Presen t illness Narrative This visit was performed virtually due to the COVID-19 epidemic as an effort to protect patients and minimize exposure. Consent from patient received to conduct visit virtually. This Team Access Model visit is a virtual GROUP encounter. It required patient-provider interaction for the medical decision making as documented below. I have communicated my name and active licensure. The patient s identity and physical location were verified at the time of this visit. Either the patient or their legal asset protection representative has been informed of the risks and benefits of -- and alternatives to -- treatment through a remote evaluation and consents to proceed with the evaluation remotely. Patient reports weight (as measured by home scale) of 369.1 pounds. AMBULATORY PATIENT EDUCATION NOTE-Shared Nutrition Group TOPIC: LIFE STYLE CHANGES: Post-op weight loss surgery: Diet and Exercise READINESS TO LEARN COGNITIVE ABILITY: Alert and oriented MOTIVATION TO LEARN: Interested FAMILY SUPPORT: Unable to assess - Family not present INSTRUCTION PROVIDED TO: Patient PATIENT LEARNS BEST BY: Multiple Methods FACTORS AFFECTING LEARNING: None PHYSICAL LIMITATIONS AFFECTING LEARNING: None LEARNING RESPONSE DIAGNOSIS: Inadequate protein-energy intake, related to: s/p bariatric surgery, as evidenced by patient update, diet recall, and group discussion Overweight Obesity, related to; food/nutrition - related knowledge deficit, as evidenced by BMI above normative standard for age and gender Malnutrition Screening Significant unintentional weight loss? No Eating less than 75% of usual intake for more than 2 weeks? Yes, advancing diet per bariatric protocol Nutritional status: METHOD OF INSTRUCTION: Individual instruction Group class instruction PATIENT / FAMILY RESPONSE: Nutrition outcome statement: Expect attention to diet to assist with weight management and minimum 500 calories/2 liters of fluids per day. Patient participated in a 2 week post-op shared nutrition group. Post-op weight loss surgery (BPD w/ DS) (Dr. Granda) . Weight loss: 32 lbs since initial assessment (401 lbs); 8% loss total body weight. Pre surgery weight: 388 lbs. Weight loss tracking as expected from surgery. Tolerating phase 3 diet without difficulty. Protein needs estimated at 96-128 grams protein per day (1.5- 2.0 g/kg IBW kg). Current intake meeting ~ 70% protein needs. Fluid consumption adequate and includes water as primary beverage Patient not yet taking recommended vitamin/minerals, however plans for NimbusBase ADEK + 2000 mg calcium citrate. Exercise includes walking most days. Labs not available to evaluate. Reviewed nutrition principles of: 1. Continue vitamins Research post-op vitamins for LEIDA/DS procedure: - Bariatric Fusion ADEK Complete Capsule (3x per day) AND 0099-2303 mg calcium citrate OR - Bariatric Advantage High ADEK Chewable Multivitamin (2x per day) AND 6433-0500 mg calcium citrate OR -Celebrate multi-ADEK chewable (3x per day) AND 2295-2333 mg calcium citrate AND 1 chewable Iron 45-60 mg AND OR -ProCare DS/LEIDA Bariatric multivitamin with 60 mg Iron (1x per day) AND 5674-6364 mg calcium citrate daily 2. Protein goal: 96-128 grams protein/day 3. Fluid goal: 64 ounces per day (no carbonation, caffeine, calories, alcohol) - separate foods and fluids by 20 minutes, small sips, no straw 4. Exercise goal: begin low intensity exercise until cleared by surgeon. 5. Practice mindful eating habits-take small portions, eat slowly, and chew thoroughly You have lost 8% total weight loss (average 6-9% at 1 month) The [facility] [place] has 2 virtual support group meetings: This is the iOculi link with meeting number that will be used for all of the THURSDAY virtual support groups this year, on the Thursday of each month 5:30-6:30PM Join from the meeting link [email or web address] Join by meeting number Meeting number (access code): [phone] Meeting password: [email or web address] The schedule with dates, times, topics, and facilitators can be found here: [email or web address] This is the iOculi link with meeting number that will be used for the Open Discussion ( Food for Thought ) support group on the First Thursday of each month 5:30-6:30PM Join from the meeting link [email or web address] Join by meeting number Meeting number (access code): [phone] Meeting password: [email or web address] Hope to see you there! Nutrition Monitoring & Evaluation: Advance diet to phase 3 by next visit Criteria: patient recall Need for Follow up: 1 month post op Appointment Start Time: 11:45 AM Appointment End Time: 12:15 PM Time Spent on Consult: 30 minutes - Group Alex Monsivais RD documented in this encounter [facility] 08-17-2023 Note HNO ID: [id number] Author: JAYSHREE HUFFMAN APRN.PRE SALES TECHNICAL CONSULTANT Service: ? Author Type: Nurse Practitioner Type: Progress Notes Filed: 08/17/2023 10:41 Note Text: Assessment BMI Surgical PostOp Clinic Note August 17, 2023 INTERVAL HISTORY: Susi Donya Ortiz is here for 13 day post op visit. 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 No Other Bariatric Surgeries Date of Surgery Surgeon Procedure 03/31/2023 Joe Granda MD LAPAROSCOPY ENTEROLYSIS Visit: 13 days Today's Visit: Wt 167.8 kg (369 lb 14.9 oz) BMI 63.5 kg/m2 BMI 63.50 kg/(m2) Last Visit: Wt: 176 kg (388 lb 0.2 oz) BMI: 66.60 kg/(m2) Total weight loss: 8.2 kg (18 lb 1.2 oz) Reeder weight: 66.1 kg (145 lb 10.6 oz) Excess weight: 109.9 kg (242 lb 5.6 oz) % of excess body weight lost: 8.2 kg (18 lb 1.2 oz) (7.46% of excess weight loss) Diet: Phase 2 Sugar: Avoiding Dumping syndrome/symptoms: No Wound issues: + drainage mid abdomen incision - sero-sanguinous Abdominal pain: + incisional pain after long car ride Nausea or vomiting: No Reflux: No Gallbladder symptoms: No Hydration status: Good Meeting fluid recommendations from RD? No Do you feel dry/dark urine/progressive fatigue :No Have you had a bowel movement: Yes Symptoms of vitamin deficiency: No Taking PPI Yes If prescribed homegoing lovenox - are you taking your lovenox? Yes Activity: low impact activity Current Outpatient Medications Medication Sig ondansetron orally disintegrating (ZOFRAN ODT) 4 mg disintegrating tablet dissolve 1 tablet in mouth every 8 hours as needed for nausea/vomiting. enoxaparin (LOVENOX) 60 mg/0.6 mL syrg Inject 0.6 mL subcutaneously every 12 hours. omeprazole (PRILOSEC) 20 mg capsule Take 1 capsule by mouth once daily. methocarbamol (ROBAXIN) 500 mg tablet Take 1 tablet by mouth three times a day as needed for up to 10 days. busPIRone (BUSPAR) 15 mg tablet Take 1 tablet by mouth every 12 hours. cetirizine (ZYRTEC) 10 mg tablet Take 1 tablet by mouth every afternoon. hydrOXYzine pamoate (VISTARIL) 50 mg capsule Take 50 mg by mouth at bedtime as needed. levonorgestrel (MIRENA) 21 mcg/24 hours (8 yrs) 52 mg IUD 1 Each by INTRAUTERINE route one time only. senna-docusate (SENNA-S) 8.6-50 mg per tablet Take 1 tablet by mouth once daily. montelukast (SINGULAIR) 10 mg tablet Take 10 mg by mouth daily at bedtime. ARIPiprazole (ABILIFY) 10 mg tablet Take 10 mg by mouth daily at bedtime. lamoTRIgine (LAMICTAL) 100 mg tablet Take 100 mg by mouth every morning. prazosin (MINIPRESS) 1 mg cap Take 1 mg by mouth daily at bedtime. propranolol (INDERAL) 60 mg tablet Take 60 mg by mouth twice daily. DULoxetine (CYMBALTA) 60 mg capsule Take 60 mg by mouth once daily. OXcarbazepine (TRILEPTAL) 300 mg tablet Take 300 mg by mouth daily at bedtime. No current facility-administered medications for this visit. Patient Active Problem List Hypokalemia Hypophosphataemia Post-op pain S/P bariatric surgery Morbid obesity (HCC) Migraine Morbid obesity with body mass index of 60.0-69.9 in adult (HCC) Recurrent tonsillitis Tonsillar enlargement TONEY on CPAP Gastroesophageal reflux disease DDD (degenerative disc disease), lumbar Bipolar affective disorder (HCC) Thrombocytosis Resolved Hospital Problems No resolved problems to display. PHYSICAL EXAM: BP 117/75 Pulse 75 Temp 36.3 ?C (97.3 ?F) (Temporal) Ht 162.6 cm (5' 4 ) Wt (!) 167.8 kg (369 lb 14.9 oz) LMP 07/08/2023 (Approximate) SpO2 97% BMI 63.50 kg/m? AANDO, pleasant, NAD Incision: dermabond prineo intact over entire incision, + leak of thin serous drainage. No erythema, swelling or tenderness. Leak is at center of incision line. 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 She is keeping it clean and covered with a gauze dressing - Ok to advance diet at 2 weeks post op - reviewed. She has an RD appt this week. She'll start with yogurt/cottage cheese - will begin bariatric vitamins this week and stop b complex - continue lovenox until prescription runs out - continue PPI until 3 months post op (refilled) - refilled zofran Activity: (more content not included)... [facility] 08-17-2023 History of Presen t illness Narrative Assessment BMI Surgical PostOp Clinic Note August 17, 2023 INTERVAL HISTORY: Susi Ortiz is here for 13 day post op visit. 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 No Other Bariatric Surgeries Date of Surgery Surgeon Procedure 03/31/2023 Joe Granda MD LAPAROSCOPY ENTEROLYSIS Visit: 13 days Today's Visit: Wt 167.8 kg (369 lb 14.9 oz) BMI 63.5 kg/m2 BMI 63.50 kg/(m^2) Last Visit: Wt: 176 kg (388 lb 0.2 oz) BMI: 66.60 kg/(m^2) Total weight loss: 8.2 kg (18 lb 1.2 oz) Reeder weight: 66.1 kg (145 lb 10.6 oz) Excess weight: 109.9 kg (242 lb 5.6 oz) % of excess body weight lost: 8.2 kg (18 lb 1.2 oz) (7.46% of excess weight loss) Diet: Phase 2 Sugar: Avoiding Dumping syndrome/symptoms: No Wound issues: + drainage mid abdomen incision - sero-sanguinous Abdominal pain: + incisional pain after long car ride Nausea or vomiting: No Reflux: No Gallbladder symptoms: No Hydration status: Good Meeting fluid recommendations from RD? No Do you feel dry/dark urine/progressive fatigue :No Have you had a bowel movement: Yes Symptoms of vitamin deficiency: No Taking PPI Yes If prescribed homegoing lovenox - are you taking your lovenox? Yes Activity: low impact activity Current Outpatient Medications Medication Sig ondansetron orally disintegrating (ZOFRAN ODT) 4 mg disintegrating tablet dissolve 1 tablet in mouth every 8 hours as needed for nausea/vomiting. enoxaparin (LOVENOX) 60 mg/0.6 mL syrg Inject 0.6 mL subcutaneously every 12 hours. omeprazole (PRILOSEC) 20 mg capsule Take 1 capsule by mouth once daily. methocarbamol (ROBAXIN) 500 mg tablet Take 1 tablet by mouth three times a day as needed for up to 10 days. busPIRone (BUSPAR) 15 mg tablet Take 1 tablet by mouth every 12 hours. cetirizine (ZYRTEC) 10 mg tablet Take 1 tablet by mouth every afternoon. hydrOXYzine pamoate (VISTARIL) 50 mg capsule Take 50 mg by mouth at bedtime as needed. levonorgestrel (MIRENA) 21 mcg/24 hours (8 yrs) 52 mg IUD 1 Each by INTRAUTERINE route one time only. senna-docusate (SENNA-S) 8.6-50 mg per tablet Take 1 tablet by mouth once daily. montelukast (SINGULAIR) 10 mg tablet Take 10 mg by mouth daily at bedtime. ARIPiprazole (ABILIFY) 10 mg tablet Take 10 mg by mouth daily at bedtime. lamoTRIgine (LAMICTAL) 100 mg tablet Take 100 mg by mouth every morning. prazosin (MINIPRESS) 1 mg cap Take 1 mg by mouth daily at bedtime. propranolol (INDERAL) 60 mg tablet Take 60 mg by mouth twice daily. DULoxetine (CYMBALTA) 60 mg capsule Take 60 mg by mouth once daily. OXcarbazepine (TRILEPTAL) 300 mg tablet Take 300 mg by mouth daily at bedtime. No current facility-administered medications for this visit. Patient Active Problem List Hypokalemia Hypophosphataemia Post-op pain S/P bariatric surgery Morbid obesity (HCC) Migraine Morbid obesity with body mass index of 60.0-69.9 in adult (HCC) Recurrent tonsillitis Tonsillar enlargement TONEY on CPAP Gastroesophageal reflux disease DDD (degenerative disc disease), lumbar Bipolar affective disorder (HCC) Thrombocytosis Resolved Hospital Problems No resolved problems to display. PHYSICAL EXAM: BP 117/75 Pulse 75 Temp 36.3 C (97.3 F) (Temporal) Ht 162.6 cm (5' 4 ) Wt (!) 167.8 kg (369 lb 14.9 oz) LMP 07/08/2023 (Approximate) SpO2 97% BMI 63.50 kg/m A&O, pleasant, NAD Incision: dermabond prineo intact over entire incision, + leak of thin serous drainage. No erythema, swelling or tenderness. Leak is at center of incision line. 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 She is keeping it clean and covered with a gauze dressing - Ok to advance diet at 2 weeks post op - reviewed. She has an RD appt this week. She'll start with yogurt/cottage cheese - will begin bariatric vitamins this week and stop b complex - continue lovenox until prescription runs out - continue PPI until 3 months post op (refilled) - refilled zofran Activity: No heavy lifting, pushing, pulling > 10-15 lbs until 4 weeks post op Plan: Next visit 1 month post op visit. Jayshree Huffman APRN.KATTY documented in this encounter [facility] 08-13-2023 Miscellaneous Notes BMI SPECIALTY CARE COORDINATION POST-OP TELEPHONE CALL BMI Post Op Telephone Call Pt was called on the second day after discharge. DO YOU HAVE A COPY OF YOUR DISCHARGE INSTRUCTIONS YES Is there anything in your discharge instructions that you do not understand? NO Pain: tolerable., taking Tylenol., and taking Oxycodone occasionally. On a scale of 0-10, 0 being not satisfied and 10 being very satisfied, how satisfied were you with your pain management strategy after surgery? 10 Patient instructed not to take any narcotic pain medications (such as Roxicodone) within three hours before bedtime as it may cause breathing difficulty. If you are having pain at bedtime you may take Tylenol (liquid form or two extra strength tablets). Phase 2 full liquid diet: tolerating diet. and pt estimates 90 grams of protein and 90 oz of fluid daily. Incisions: surgical glue intact, scant amount (area the size of pencil eraser head) clear; pink drainage from mid-abdomen incision. Denies fever, pain, redness, swelling. Emotional support provided and encouraged patient to continue to wear loose fitting clothing; use 2 X 2 gauze; Patient verbalized understanding to notify surgery team; use BMI HELP card if has increase in drainage, redness, swelling or fever. GI: + BM and +flatus : WNL Medications: Taking as instructioned at discharge PPI and lovenox pantoprazole DR 40 mg tablet Commonly known as: PROTONIX Take 1 tablet by mouth once daily. enoxaparin 60 mg/0.6 mL Syrg Commonly known as: LOVENOX Inject 0.6 mL subcutaneously every 12 hours. CPAP USE: No Patient states she is waiting to receive replacement machine. States received confirmation from DME replacement should arrive in next 5-7 days. Remind patient of post op appt. Reminded patient of how to reach [facility] or their surgeons office. Patient reminded to seek medical attention if they develop chest pain, a sudden onset of shortness of breath or persistent pain in the calf of their legs - BEST TO ALWAYS present to [facility] where you had your surgery Patient verbalized understanding of all advice and instructions given. Niki Peterson RN documented in this encounter [facility] 08-11-2023 Note HNO ID: [id number] Author: ?, ?, ? Service: ? Author Type: ? Type: Plan of Care Filed: 08/11/2023 17:07 Note Text: PHARMACY BEDSIDE DELIVERY SERVICE Patient Name: Susi Ortiz The marked outpatient medications were Filled at: [place] and delivered to the patient's bedside to [facility] Medication List START taking these medications methocarbamol 500 mg tablet Commonly known as: ROBAXIN Take 1 tablet by mouth three times a day as needed for up to 10 days. oxyCODONE IR 5 mg immediate release tablet Commonly known as: ROXICODONE Take 1 tablet by mouth every 6 hours as needed for up to 5 days. CHANGE how you take these medications acetaminophen 500 mg tablet Commonly known as: TYLENOL Take 2 tablets by mouth every 6 hours for 4 days. What changed: medication strength how much to take when to take this reasons to take this enoxaparin 60 mg/0.6 mL Syrg Commonly known as: LOVENOX Inject 0.6 mL subcutaneously every 12 hours. What changed: medication strength how much to take when to take this omeprazole 20 mg capsule Commonly known as: PriLOSEC Take 1 capsule by mouth once daily. What changed: medication strength See the new instructions. Another medication with the same name was removed. Continue taking this medication, and follow the directions you see here. CONTINUE taking these medications ARIPiprazole 10 mg tablet Commonly known as: ABILIFY busPIRone 15 mg tablet Commonly known as: BUSPAR cetirizine 10 mg tablet Commonly known as: ZYRTEC CYMBALTA 60 mg capsule Generic drug: DULoxetine hydrOXYzine pamoate 50 mg capsule Commonly known as: VISTARIL lamoTRIgine 100 mg tablet Commonly known as: LaMICtal MIRENA 21 mcg/24 hours (8 yrs) 52 mg IUD Generic drug: levonorgestrel ondansetron orally disintegrating 4 mg disintegrating tablet Commonly known as: ZOFRAN ODT dissolve 1 tablet in mouth every 8 hours as needed for nausea/vomiting. OXcarbazepine 300 mg tablet Commonly known as: TRILEPTAL prazosin 1 mg Cap Commonly known as: MINIPRESS propranolol 60 mg tablet Commonly known as: INDERAL senna-docusate 8.6-50 mg per tablet Commonly known as: SENNA-S Take 1 tablet by mouth once daily. SINGULAIR 10 mg tablet Generic drug: montelukast You might also be taking other medications not listed above. If you have questions about any of your other medications, talk to the person who prescribed them or your Primary Care Provider. 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 Pain Control: Pain controlled with multimodal management CV/P: Hgb stable, encourage IS GI: Continue phase 2 diet FEN/Endo: HLIV, replace electrolytes as needed Drains: none Abx: None Ppx: Lovenox 60 mg twice daily MSK: OOB to chair Dispo: RNF, will discharge home today with 2 weeks of Lovenox 60 mg twice daily Plan to be discussed with staff Glenis Nazario MD General Surgery, Resident Please contact [facility] pager for any questions [phone] during the daytime hours from 6a to 6p. Contact [phone] for nights and weekends Subjective -No acute events overnight -Pain: Controlled -N/V: No nausea , tolerating phase 2 -Bowel function: passing gas and BM -Ambulating: yes -White blood count 15 Objective Vital Signs BP 150/76 Pulse 82 Temp 36.4 ?C (97.5 ?F) (Oral) Resp 16 Ht 162.6 cm (5' 4 ) Wt (!) 179.9 kg (396 lb 8 oz) LMP 09/24/2015 SpO2 93% BMI 68.06 kg/m? Body mass index is 68.06 kg/m?. Input and Output No intake or output data in the 24 hours ending 08/11/23 0705 Physical Exam GENERAL: alert, no distress SKIN: No rashes, normal skin turgor NEUROLOGIC: Aox3 HEENT: Normocephalic, EOMI LUNGS: Breathing comfortably on RA CARDIAC: Hemodynamically stable, warm, well-perfused ABDOMEN: Soft, appropriately tender, nondistended EXTREMITIES: No deformities, edema, clubbing WOUND: Clean, dry, intact Recent Labs 08/11/23 0434 08/10/23 0637 08/09/23 0431 WBC 15.61* 13.99* 14.45* HB 11.8 11.6 11.9 HCT 36.9 36.9 37.6 PLT 579* 557* 499* NA 138 140 137 K 4.2 3.4* 3.5* CHLOR 105 104 103 CO2 20* 24 22 BUN 3* 3* 3* CREAT 0.57* 0.65 0.59 GLUC 92 91 98 MG 2.0 1.8 1.8 Imaging None today [facility] 08-10-2023 Note HNO ID: [id number] Author: GLENIS ANZARIO MD Service: General Surgery Author Type: Resident Type: Progress Notes Filed: 08/10/2023 08:01 Note Text: General Surgery Progress Note Name: Susi Ortiz Bed: -PK3C28/CK3K-17 ASSESSMENT AND PLAN Susi Ortiz is a 38 year old female with a PMHx of morbid obesity, TONEY on CPAP, thrombocytosis, bipolar disorder, GERD and migraines now POD 6 s/p 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 Pain Control: Pain controlled with multimodal management, epidural cath discontinued CV/P: Hgb stable, encourage IS GI: Continue phase 2 diet FEN/Endo: HLIV, replace electrolytes as needed Drains: none Abx: None Ppx: Lovenox 60 mg twice daily MSK: OOB to chair Dispo: [facility], likely DC tomorrow 08/11 Plan to be discussed with staff Glenis Nazario MD General Surgery, Resident Please contact [facility] pager for any questions [phone] during the daytime hours from 6a to 6p. Contact [phone] for nights and weekends Subjective -No acute events overnight -Pain: Controlled -N/V: mild nausea , tolerating phase 2; pt did not reach protein shake goal -Bowel function: passing gas and BM -Ambulating: yes Objective Vital Signs BP 135/62 Pulse 90 Temp 36.5 ?C (97.7 ?F) (Oral) Resp 14 Ht 162.6 cm (5' 4 ) Wt (!) 179.9 kg (396 lb 8 oz) LMP 09/24/2015 SpO2 94% BMI 68.06 kg/m? Body mass index is 68.06 kg/m?. Input and Output Intake/Output Summary (Last 24 hours) at 08/10/2023 0757 Last data filed at 08/09/2023 2337 Gross per 24 hour Intake 200 ml Output 1350 ml Net -1150 ml Physical Exam GENERAL: alert, no distress SKIN: No rashes, normal skin turgor NEUROLOGIC: Aox3 HEENT: Normocephalic, EOMI LUNGS: Breathing comfortably on RA CARDIAC: Hemodynamically stable, warm, well-perfused ABDOMEN: Soft, appropriately tender, nondistended EXTREMITIES: No deformities, edema, clubbing WOUND: Clean, dry, intact Recent Labs 08/09/23 0431 08/08/23 0433 WBC 14.45* 15.03* HB 11.9 11.4* HCT 37.6 35.7* PLT 499* 457* NA 137 138 K 3.5* 3.9 CHLOR 103 105 CO2 22 21* BUN 3* 3* CREAT 0.59 0.58 GLUC 98 97 MG 1.8 1.8 Imaging None today [facility] 08-09-2023 Note HNO ID: [id number] Author: ANGELA COPELAND MD Service: General Surgery Author Type: Physician Type: Progress Notes Filed: 08/09/2023 09:41 Note Text: General Surgery Progress Note Name: Susi Ortiz Bed: [address] Date: August 08, 2023 ASSESSMENT AND PLAN Susi Ortiz is a 38 year old female with a PMHx of morbid obesity, TONEY on CPAP, thrombocytosis, bipolar disorder, GERD and migraines now POD 5 s/p 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 Pain Control: Pain controlled with multimodal management, epidural cath in place as per APMS- likely to remove today CV/P: Hgb stable, encourage IS GI: Continue phase 2 diet FEN/Endo: HLIV, replace electrolytes as needed Drains: none Abx: None Ppx: Heparin SQ 7,500 TID MSK: OOB to chair Dispo: RNF, likely DC tomorrow Plan to be discussed with staff Patrica Anaya MD General Surgery, Resident [phone] Please contact [facility] pager for any questions [phone] during the daytime hours from 6a to 6p. Contact [phone] for nights and weekends Subjective -No acute events overnight -Pain: Controlled -N/V: No, tolerating phase 2 -Bowel function: passing gas and BM -Ambulating: yes Objective Vital Signs BP 128/58 Pulse 93 Temp 36.7 ?C (98.1 ?F) (Oral) Resp 20 Ht 162.6 cm (5' 4 ) Wt (!) 179.9 kg (396 lb 8 oz) LMP 09/24/2015 SpO2 97% BMI 68.06 kg/m? Body mass index is 68.06 kg/m?. Input and Output Intake/Output Summary (Last 24 hours) at 08/09/2023 0929 Last data filed at 08/09/2023 0330 Gross per 24 hour Intake 340 ml Output 1800 ml Net -1460 ml Physical Exam GENERAL: alert, no distress SKIN: No rashes, normal skin turgor NEUROLOGIC: Aox3 HEENT: Normocephalic, EOMI LUNGS: Breathing comfortably on RA CARDIAC: Hemodynamically stable, warm, well-perfused ABDOMEN: Soft, non-tender. No masses or organomegaly EXTREMITIES: No deformities, edema, clubbing WOUND: Clean, dry, intact Recent Labs 08/09/23 04308/08/23 04308/07/23 043 WBC 14.45* 15.03* 16.39* HB 11.9 11.4* 11.8 HCT 37.6 35.7* 37.7 PLT 499* 457* 409* NA 137 138 139 K 3.5* 3.9 3.7 CHLOR 103 105 105 CO2 22 21* 22 BUN 3* 3* 3* CREAT 0.59 0.58 0.61 GLUC 98 97 99 MG 1.8 1.8 1.9 Imaging None today I saw and evaluated the patient. Discussed with the resident and agree with resident's findings and plan as documented in the resident's note. Patient overall feeling well but does have pressure in her RUQ near her incision. Tolerating some fluids. Philly Copeland MD [facility] 08-09-2023 Note HNO ID: [id number] Author: MAYANK VELARDE RN Service: ? Author Type: Registered Nurse Type: Nursing Progress Note Filed: 08/09/2023 06:08 Note Text: 0608: page SROC pt potassium came back 3.5 this morning. 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 Pain Control: Pain controlled with multimodal management, keep epidural catheter, plan to remove epidural catheter possibly over the weekend CV/P: Hgb stable, encourage IS GI: Continue phase 2 diet FEN/Endo: DC mIVF, replace electrolytes as needed Drains: Remove cates catheter Abx: None Ppx: Heparin SQ 7,500 TID MSK: OOB to chair Dispo: Keep RNF Plan to be discussed with staff Maico Mcclain, PGY-1 Subjective -No acute events overnight -Pain: Controlled -N/V: No, tolerating phase 2 -Bowel function: passing gas and BM -Ambulating: yes Objective Vital Signs BP 108/57 Pulse 95 Temp 36.6 ?C (97.9 ?F) (Oral) Resp 16 Ht 162.6 cm (5' 4 ) Wt (!) 179.9 kg (396 lb 8 oz) LMP 09/24/2015 SpO2 95% BMI 68.06 kg/m? Body mass index is 68.06 kg/m?. Input and Output Intake/Output Summary (Last 24 hours) at 08/08/2023 0853 Last data filed at 08/08/2023 0730 Gross per 24 hour Intake -- Output 2350 ml Net -2350 ml Physical Exam GENERAL: alert, no distress SKIN: No rashes, normal skin turgor NEUROLOGIC: Aox3 HEENT: Normocephalic, EOMI LUNGS: Breathing comfortably on RA CARDIAC: Hemodynamically stable, warm, well-perfused ABDOMEN: Soft, non-tender. No masses or organomegaly EXTREMITIES: No deformities, edema, clubbing WOUND: Clean, dry, intact Recent Labs 08/08/23 0433 08/07/23 0435 08/06/23 0500 WBC 15.03* 16.39* 18.42* HB 11.4* 11.8 11.7 HCT 35.7* 37.7 38.0 PLT 457* 409* 415* NA 138 139 141 K 3.9 3.7 3.8 CHLOR 105 105 106* CO2 21* 22 23 BUN 3* 3* 5* CREAT 0.58 0.61 0.69 GLUC 97 99 83 MG 1.8 1.9 2.0 Imaging None today I saw and evaluated the patient. Discussed with the resident and agree with resident's findings and plan as documented in the resident's note. Patient doing well, pain controlled. No gas yet today. Philly Copeland MD [facility] 08-07-2023 Note HNO ID: [id number] Author: MAICO MCCLAIN MD Service: General Surgery Author Type: Resident Type: Progress Notes Filed: 08/07/2023 09:26 Note Text: General Surgery Progress Note Name: Susi Ortiz [facility] Date: August 07, 2023 ASSESSMENT AND PLAN Susi Ortiz is a 38 year old female with a PMHx of morbid obesity, TONEY on CPAP, thrombocytosis, bipolar disorder, GERD and migraines now POD 2 s/p 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 Pain Control: Pain controlled with multimodal management, keep epidural catheter, plan to remove epidural catheter possibly over the weekend CV/P: Hgb stable, encourage IS GI: Keep phase 1 bariatric diet until she passes a BM, then diet can be advanced to phase 2, give senna-s FEN/Endo: mIVF 100cc/hr, replace electrolytes as needed Drains: Remove cates catheter Abx: None Ppx: Increase Heparin SQ 7,500 TID MSK: OOB to chair Dispo: Keep RNF Plan to be discussed with staff Maico Mcclain, PGY-1 Subjective -No acute events overnight -Pain: Controlled, reports mild epigastric pain -N/V: No, tolerating phase 1 -Bowel function: passing gas no BM -Ambulating: No, not getting out of bed Objective Vital Signs BP 132/78 Pulse 91 Temp 36.4 ?C (97.5 ?F) (Oral) Resp 15 Ht 162.6 cm (5' 4 ) Wt (!) 179.9 kg (396 lb 8 oz) LMP 09/24/2015 SpO2 97% BMI 68.06 kg/m? Body mass index is 68.06 kg/m?. Input and Output Intake/Output Summary (Last 24 hours) at 08/07/2023 0923 Last data filed at 08/07/2023 0834 Gross per 24 hour Intake 2397 ml Output 1650 ml Net 747 ml Physical Exam GENERAL: alert, no distress SKIN: No rashes, normal skin turgor NEUROLOGIC: Aox3 HEENT: Normocephalic, EOMI LUNGS: Breathing comfortably on RA CARDIAC: Hemodynamically stable, warm, well-perfused ABDOMEN: Soft, non-tender. No masses or organomegaly EXTREMITIES: No deformities, edema, clubbing WOUND: Clean, dry, intact Recent Labs 08/07/23 0435 08/06/23 0500 08/05/23 1517 08/04/23201008/04/23 1850 WBC 16.39* 18.42* 14.67* < > -- HB 11.8 11.7 11.9 < > -- HCT 37.7 38.0 38.5 < > -- PLT 409* 415* 431* < > -- NA 139 141 139 -- 134* K 3.7 3.8 3.4* -- 5.1 CHLOR 105 106* 105 -- 101 CO2 22 23 24 -- 20* BUN 3* 5* 7 -- 7 CREAT 0.61 0.69 0.77 -- 0.69 GLUC 99 83 93 -- 137* MG 1.9 2.0 -- -- 1.8 < > = values in this interval not displayed. 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 Pain Control: Pain controlled with multimodal management, keep epidural catheter CV/P: Hgb stable, encourage IS GI: Remove NG tube, start phase 1 bariatric diet FEN/Endo: mIVF 100cc/hr, replace electrolytes as needed Drains: Remove cates catheter Abx: None Ppx: Heparin SQ TID MSK: OOB to chair Dispo: Keep RNF Plan to be discussed with staff Maico Mcclain, PGY-1 Subjective -No acute events overnight -Pain: Controlled, reports mild epigastric pain -N/V: No -Bowel function: passing gas -Ambulating: No Objective Vital Signs BP 104/55 Pulse 101 Temp 36.6 ?C (97.9 ?F) (Oral) Resp 18 Ht 162.6 cm (5' 4 ) Wt (!) 176 kg (388 lb) LMP 09/24/2015 SpO2 98% BMI 66.60 kg/m? Body mass index is 66.6 kg/m?. Input and Output Intake/Output Summary (Last 24 hours) at 08/06/2023 1553 Last data filed at 08/06/2023 1054 Gross per 24 hour Intake 1677 ml Output 2275 ml Net -598 ml Physical Exam GENERAL: alert, no distress SKIN: No rashes, normal skin turgor NEUROLOGIC: Aox3 HEENT: Normocephalic, EOMI LUNGS: Breathing comfortably on RA CARDIAC: Hemodynamically stable, warm, well-perfused ABDOMEN: Soft, non-tender. No masses or organomegaly EXTREMITIES: No deformities, edema, clubbing WOUND: Clean, dry, intact Recent Labs 08/06/23 0500 08/05/23 1517 08/04/23201008/04/23 1850 WBC 18.42* 14.67* 18.78* -- HB 11.7 11.9 13.0 -- HCT 38.0 38.5 40.3 -- PLT 415* 431* 502* -- NA 141 139 -- 134* K 3.8 3.4* -- 5.1 CHLOR 106* 105 -- 101 CO2 23 24 -- 20* BUN 5* 7 -- 7 CREAT 0.69 0.77 -- 0.69 GLUC 83 93 -- 137* MG 2.0 -- -- 1.8 Imaging None today [facility] 08-06-2023 Note HNO ID: [id number] Author: JOE GRANDA MD Service: General Surgery Author Type: Physician Type: Progress Notes Filed: 08/06/2023 14:19 Note Text: August 06, 2023 Incisional discomfort. Walking in room only. Passed flatus. BP 104/55 Pulse 101 Temp 36.6 ?C (97.9 ?F) (Oral) Resp 18 Ht 162.6 cm (5' 4 ) Wt (!) 176 kg (388 lb) LMP 09/24/2015 SpO2 98% BMI 66.60 kg/m? Incision clean dry intact under dermabond prineo dressing Urine clear Labs reviewed. Leukocytosis interpreted in light of her baseline leukocytosis post splenectomy. Thrombocytosis same. PLAN NG removed on rounds Start phase 1 diet Contact APMS to see if cates can be removed with this level of epidural and to see if she can go to higher level of VTE prophylactic dosing Joe Granda MD [facility] 08-05-2023 Note HNO ID: [id number] Author: JOE GRANDA MD Service: General Surgery Author Type: Physician Type: Progress Notes Filed: 08/05/2023 15:58 Note Text: General Surgery Progress Note Name: Susi Ortiz Bed: [address]28 Date: August 05, 2023 ASSESSMENT AND PLAN Susi Ortiz is a 38 year old female with a PMHx of morbid obesity, TONEY on CPAP, thrombocytosis, bipolar disorder, GERD and migraines now POD 1 s/p 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 Pain Control: Pain controlled with multimodal management CV/P: Hgb stable, encourage IS GI: NPO, NGT to LIWS FEN/Endo: increase mIVF 100cc/hr, give 1L bolus replace electrolytes as needed Drains: NG tube Abx: None Ppx: Heparin SQ TID MSK: OOB to chair Dispo: Keep RNF Plan to be discussed with staff Maico Mcclain, PGY-1 Subjective -No acute events overnight -Pain: Controlled, reports mild epigastric pain -N/V: No -Bowel function: No -Ambulating: No - Soft BP Objective Vital Signs BP 104/54 Pulse 95 Temp 36.4 ?C (97.5 ?F) Resp 16 Ht 162.6 cm (5' 4 ) Wt (!) 176 kg (388 lb) LMP 09/24/2015 SpO2 100% BMI 66.60 kg/m? Body mass index is 66.6 kg/m?. Input and Output Intake/Output Summary (Last 24 hours) at 08/05/2023 1240 Last data filed at 08/05/2023 1008 Gross per 24 hour Intake 2240 ml Output 1520 ml Net 720 ml Physical Exam GENERAL: alert, no distress SKIN: No rashes, normal skin turgor NEUROLOGIC: Aox3 HEENT: Normocephalic, EOMI LUNGS: Breathing comfortably on RA CARDIAC: Hemodynamically stable, warm, well-perfused ABDOMEN: Soft, non-tender. No masses or organomegaly : Cates EXTREMITIES: No deformities, edema, clubbing WOUND: Clean, dry, intact Recent Labs 08/04/23201008/04/23 1850 WBC 18.78* -- HB 13.0 -- HCT 40.3 -- PLT 502* -- NA -- 134* K -- 5.1 CHLOR -- 101 CO2 -- 20* BUN -- 7 CREAT -- 0.69 GLUC -- 137* MG -- 1.8 Imaging None today I saw and evaluated the patient. Discussed with the resident and agree with resident's findings and plan as documented in the resident's note. Doing well POD 1. Joe Granda MD [facility] 08-05-2023 Note HNO ID: [id number] Author: ALMA CONNORS LSW Service: Care Management Author Type: Customer Response Representative Type: Care Mgt Initial Assessment Filed: 08/05/2023 12:20 Note Text: CARE MANAGEMENT: ASSESSMENT AND DISCHARGE PLAN SERVICE DATE: August 05, 2023 SERVICE TIME: 12:17 PM PCP: Elizabet Simental DO, DO Primary Contact: Extended Emergency Contact Information Primary Emergency Contact: Evita Eckert [facility] Mobile Relation: Grandparent Secondary Emergency Contact: Ritchie Stephens [facility] Mobile Relation: Mother Admission Status: Inpatient Insurance Provider: TERRY CAO [employer]ICAID OF [place] Discharge Planning requested by: Per Department Practice Potential Transition Plans No Services Indicated Advance Directives Current Advance Directive: None Personal Property Assessor Attempted to Assist with AD Completion: Yes Action: Patient Unwilling Current Living Arrangements and Support Lives with: Children Type of Residence: Private Residence (Apartment or Condo) Does the patient have to climb stairs at home?: Yes;stairs outside the home Support: Family members How do you manage to accomplish the following: Independent: Ambulation;Transportation to appointments/community;Bathe/Lashaun wer;Dress;Meals/Meal Prep;Going to the bathroom;Medication Management Current Services/Equipment Current Post-Acute Service(s): None Discharge Planning Patient Goal(s): General wellness, Be able to go home [place] of Choice Explained: [place] of Choice Given: No Reason Not Given: No placements necessary Are you interested in bedside delivery of your medications? No Discharge Planning Participant(s): Patient Patient/Family Comments: none Caregiver Assessment: Caregiver is ready, willing and able to meet the patient's needs as recommended by the inter-professional team: No Caregiver needed Transport at Discharge: Transportation Arrangements: Car Needs Prior to Discharge: Needs Prior to Discharge: None Post-Acute Discharge Plan: Pt admitted s/p .open second-stage biliopancreatic diversion with duodenal switch. PMHx morbid obesity, sleeve gastrectomy, open splenectomy. Independent of ADLS and iADLS, from home, lives with 2 kids age 15AND9 in a walk-up apt, unemployed, drives. Does not utilize any DME, long-term or community resources. No skilled needs identified at this time. DC transportation will be provided by family. SIGNATURE: LELAND Kumar PATIENT NAME: Susi Ortiz DATE: August 05, 2023 TIME: 12:17 PM CONTACT #: [phone] [facility] 08-05-2023 Note HNO ID: [id number] Author: RADHA LARSON MD Service: General Surgery Author Type: Resident Type: Plan of Care Filed: 08/05/2023 00:18 Note Text: GENERAL SURGERY CONSULT NOTE NAME: Susi Ortiz DATE: 08/04/2023 TIME: 10:23 PM Assessment AND Plan: Susi Ortiz is a 38 year old female with a PMHx of morbid obesity, TONEY on CPAP, thrombocytosis, bipolar disorder, GERD and migraines now Day of Surgery s/p GASTRECTOMY, GASTRIC RESTRICTIVE PARTIAL (50 TO 100 CM COMMON CHANNEL) TO LIMIT ABSORPTION open biliopancreatic diversion with duodenal switch who is recovering as expected postoperatively PLAN: - continue multimodal pain control, TAPs, salonpas and chloraseptic spray added for comfort - home hydroxyzine ordered for allergy to adhesive - home buspirone, lamotrigine, oxcarbazepine, aripiprazole, montelukast, and duloxetine ordered - continue PRN anti-nausea medications - SQH 5000 q8h - Continue NPO Radha Larson MD [facility] Pager [phone] Subjective: pain well controlled on current regimen, only with NGT discomfort No n/v Sore mostly over incision. Otherwise TAPs working REVIEW OF SYSTEMS: See HPI PAST MEDICAL HISTORY: PAST MEDICAL HISTORY Diagnosis Date Bipolar disorder (HCC) DDD (degenerative disc disease), lumbar Depression Eczema GERD (gastroesophageal reflux disease) Migraine PAST SURGICAL HISTORY: PAST SURGICAL HISTORY Procedure Laterality Date CHOLECYSTECTOMY HX 06/29/2007 LAP SLEEVE GASTRECTOMY 2017 NEUROPLASTY AND/TRANSPOS MEDIAN NRV CARPAL TUNNE 2008;2009 bilateral S PROBE PERC LUMBAR DISCECTOMY 2011; 2012 L4, L5 and L5 S1 SPLENECTOMY TOTAL SEPARATE PROCEDURE 06/29/2014 FAMILY HISTORY: FAMILY HISTORY Problem Relation Age of Onset Thyroid Mother hypothyrodism Obesity Mother Obesity Father Diabetes Father HTN; Lymphoma Obesity Sister other (Migraines [Other]) Sister None Daughter None Son Diabetes Paternal Uncle Diabetes Paternal Grandmother Stroke Paternal Grandfather Difficulty with anesthesia No Family History SOCIAL HISTORY: Social History Tobacco Use Smoking status: Former Packs/day: 0.50 Years: 5.00 Additional pack years: 0.00 Total pack years: 2.50 Types: Cigarettes Quit date: 12/27/2013 Years since quittin.6 Smokeless tobacco: Never Vaping Use Vaping Use: Never used Substance Use Topics Alcohol use: Not Currently Comment: None since 2012 Drug use: Never MEDICATIONS: Prior to Admission Medications: busPIRone (BUSPAR) 15 mg tablet, Take 1 tablet by mouth every 12 hours., Disp: , Rfl: , 08/03/2023 cetirizine (ZYRTEC) 10 mg tablet, Take 1 tablet by mouth every afternoon., Disp: , Rfl: , 08/03/2023 hydrOXYzine pamoate (VISTARIL) 50 mg capsule, Take 50 mg by mouth at bedtime as needed., Disp: , Rfl: , 08/03/2023 OXcarbazepine (TRILEPTAL) 300 mg tablet, Take 300 mg by mouth daily at bedtime., Disp: , Rfl: , 08/03/2023 omeprazole (PRILOSEC) 20 mg capsule, Take 1 capsule by mouth two times a day., Disp: 180 capsule, Rfl: 0, 08/03/2023 montelukast (SINGULAIR) 10 mg tablet, Take 10 mg by mouth daily at bedtime., Disp: , Rfl: , 08/03/2023 ARIPiprazole (ABILIFY) 10 mg tablet, Take 10 mg by mouth daily at bedtime., Disp: , Rfl: , 08/03/2023 famotidine (PEPCID) 20 mg tablet, Take 20 mg by mouth twice daily as needed., Disp: , Rfl: , 08/03/2023 lamoTRIgine (LAMICTAL) 100 mg tablet, Take 100 mg by mouth every morning., Disp: , Rfl: , 08/03/2023 prazosin (MINIPRESS) 1 mg cap, Take 1 mg by mouth daily at bedtime., Disp: , Rfl: , 08/03/2023 propranolol (INDERAL) 60 mg tablet, Take 60 mg by mouth twice daily., Disp: , Rfl: , 08/03/2023 DULoxetine (CYMBALTA) 60 mg capsule, Take 60 mg by mouth once daily., Disp: , Rfl: , 08/03/2023 levonorgestrel (MIRENA) 21 mcg/24 hours (8 yrs) 52 mg IUD, 1 Each by INTRAUTERINE route one time only., Disp: , Rfl: enoxaparin (LOVENOX) 40 mg/0.4 mL, Inject 0.4 mL subcutaneously once daily., Disp: 12 mL, Rfl: 0 ondansetron orally disintegrating (ZOFRAN ODT) 4 mg disintegrating tablet, Take 1 tablet by mouth every 8 hours as needed for nausea/vomiting for up to 60 doses., Disp: 30 tablet, Rfl: 1 senna-docusate (SENNA-S) 8.6-50 mg per tablet, Take 1 tablet by mouth once daily., Disp: 30 tablet, Rfl: 0 omeprazole (PRILOSEC) 40 mg capsule, TAKE 1 CAPSULE BY MOUTH 30 MINUTES BEFORE morning meal, Disp: , Rfl: acetaminophen (TYLENOL) 325 mg tablet, Take 650 mg by mouth as needed., Disp: , Rfl: Current Facility-Administered Medications Medication Dose Route Frequency [START ON 08/05/2023] heparin 5,000 Units injection 5,000 Units SUBCUTANEOUS q 8 H [START ON 08/05/2023] pantoprazole 40 mg injection (PROTONIX) 40 mg INTRAVENOUS DAILY (6 AM) NaCl 0.9% iv flush bag 20 mL INTRAVENOUS PRN bupivacaine 0.0625%-fentaNYL (PF) 2 mcg/mL epidural in NaCl 0.9% 250 mL EPIDURAL CONTINUOUS ALLERGIES: ALLERGIES Allergen Reacti (more content not included)... [facility] 08-04-2023 Note HNO ID: [id number] Author: MARIIA AGUERO APRN.CRNA Service: ? Author Type: Nurse Microsoft Bi Consultant Type: Anesthesia Procedure Notes Filed: 08/04/2023 14:30 Note Text: ANESTHESIOLOGY PROCEDURE NOTE Gastric Tube General Information Procedure Start Time/Medication Administration: 08/04/2023 1:15 PM Patient location during procedure: OR Indication: gastric decompression Staffing Anesthesiologist: Amanda Alcantar DO MELT SUPERVISOR: Mariia Aguero APRN.MELT SUPERVISOR Performed by: CHEKO Procedure Details Type: Nasogastric tube Cortrak monitor used: No Size: 18 Fr cm Distance Advanced: 55 cm Securement: taped to the nose Placement Confirmation: KUB ordered/pending Successful Placement: yes Post-Procedure Details SIGNATURE: Mariia Aguero APRN.CRNA PATIENT NAME: Susi Milesenship DATE: August 04, 2023 TIME: 2:23 PM CSN: [id number] [facility] 08-04-2023 Note HNO ID: [id number] Author: JUDE LOPEZ DO Service: Anesthesiology Author Type: Anesthesiologist Type: Anesthesia Procedure Notes Filed: 08/04/2023 12:19 Note Text: ANESTHESIOLOGY PROCEDURE NOTE Epidural Block General Information Procedure Start Time/Medication Administration: 08/04/2023 7:27 AM Patient location during procedure: pre-op Informed Consent Consent Obtained: Written [place] Protocol A moment to CARE was completed. SIGN IN Sign in communication not applicable due to emergent procedure. Personnel directly involved with the procedure wore the appropriate PPE. Special Equipment: N/A Patient/Surrogate Stated/Verified: Patient name, Date of , Relevant allergies and Intended procedure TIME OUT Intended patient and procedure match the source document(s). Consent documented and matches the intended procedure. Relevant labs, photos, and/or imaging studies have been reviewed. Correct side/site marked and visible. Medications required for procedure verified. Fire risk assessed and interventions discussed. Reason for block: post-op pain management/at surgeon's request Staffing Anesthesiologist: Jude Lopez DO Resident: Shiva Wiggins DO Preparation Sterility Preparation: hand hygiene performed prior to procedure, sterile gloves, drapes, and procedure tray, surgical cap used, mask used, sterile drape used during line insertion, skin prep agent completely dried prior to procedure Sterility Technique Not Completely Performed Due to Extreme Emergency: No Site Prep: Duraprep Procedure Details Patient position: sitting Ultrasound Guided: No Patient monitoring: Pulse OX, EKG and NIBP Approach: midline Injection technique: PHILIP saline Region: thoracic Estimated Interspace: 8-9 Number of Attempts: >3 and 3 Needle and Epidural Catheter Needle type: DataKraft Needle gauge: 17G Needle length: 6 in Needle insertion depth: 10.5 cm Catheter Catheter type: side hole Catheter size: 19 G Catheter at skin depth: 16.5 cmTest Dose Response: negative AssessmentBeginning Pain Score: 0/10 Pain Score After Treatment: 0/10 Events: tolerated well without discomfort SIGN OUT All instruments, equipment, possible retained foreign bodies accounted for. Comments Difficult placement. Two levels attempted. T7-T8 level loss was achieved but unable to thread catheter, likely positioning issue. Dropped down to level T8-T9 and loss achieved at similar depth with easy threading of the catheter. Negative aspirate, negative test dose. SIGNATURE: Jude Lopez DO PATIENT NAME: Susi Naqvi Ortiz DATE: August 04, 2023 TIME: 12:10 PM CSN: [id number] [facility] 08-04-2023 Note HNO ID: [id number] Author: MARIIA AGUERO APRN.MELT SUPERVISOR Service: ? Author Type: Nurse Microsoft Bi Consultant Type: Anesthesia Procedure Notes Filed: 08/04/2023 10:01 Note Text: ANESTHESIOLOGY PROCEDURE NOTE Airway General Information Procedure Start Time/Medication Administration: 08/04/2023 8:47 AM Patient location during procedure: OR Patient identity confirmed: arm band and patient Staffing Anesthesiologist: Amanda Alcantar DO MELT SUPERVISOR: Mariia Aguero APRN.MELT SUPERVISOR Performed by: other anesthesia staff Indications and Patient Condition Indications for airway management: anesthesia Preoxygenated: yes anesthesia circuit Patient position: sniffing Method: modified rapid sequence Difficult Mask: No Airway Accessory: oral airway Final Airway Details Final airway type: endotracheal airway Final Endotracheal Airway: ETT Cuffed: yes Successful intubation technique: video laryngoscopy Devices used: [email or web address] Endotracheal tube insertion site: oral Blade size: #4 ETT size (mm): 7.5 Measured from: lips Measurement (cm): 22 Placement verified by: capnometry Cormack-Lehane Classification: grade I - full view of glottis Number of attempts at approach: 1 Airway not difficult Comments Atraumatic intubation. Dentition and lips remain the same as preop. Critical care DIRECTOR OF CONSULTING SERVICES performed intubation. SIGNATURE: Mariia Aguero APRN.MELT SUPERVISOR PATIENT NAME: Susi Naqvi Ortiz DATE: August 04, 2023 TIME: 9:58 AM CSN: [id number] [facility] 08-04-2023 Note HNO ID: [id number] Author: AMANDA ALCANTAR DO Service: Anesthesiology Author Type: Physician Type: Anesthesia Procedure Notes Filed: 08/04/2023 09:33 Note Text: ANESTHESIOLOGY PROCEDURE NOTE A-Line General Information Procedure Start Time/Medication Administration: 08/04/2023 9:02 AM Patient location during procedure: OR Consent Obtained: Yes Indications: continuous blood pressure monitoring Staffing Anesthesiologist: Amanda Alcantar DO MELT SUPERVISOR: Mariia Aguero APRN.MELT SUPERVISOR Performed by: anesthesiologist Preparation Sterility Preparation: hand hygiene performed prior to procedure, sterile gloves, drapes, and procedure tray, surgical cap used, mask used, sterile drape used during line insertion, skin prep agent completely dried prior to procedure Site Prep: Chlorhexidine Procedure Details Catheter Size: 20 G Catheter Length: 5.25 in Micropuncture Kit Used: Yes Guidewire Used: Yes Guidewire Removed Intact: Yes Laterality: left Site: radial artery Ultrasound Guided: Yes Image in Chart: No Sites: potential access sites evaluated, selected vessel patent, concurrent real time ultrasound visualization of vascular needle entry Vessel: target vessel identified and guidewire advanced into vessel Line Secured: Tegaderm and tape SIGNATURE: Amanda Alcantar DO PATIENT NAME: Susi Naqvi Ortiz DATE: August 04, 2023 TIME: 9:32 AM CSN: [id number] [facility] 08-04-2023 Note HNO ID: [id number] Author: AMANDA ALCANTAR DO Service: Anesthesiology Author Type: Physician Type: Anesthesia Procedure Notes Filed: 08/04/2023 09:32 Note Text: ANESTHESIOLOGY PROCEDURE NOTE PIV General Information Procedure Start Time/Medication Administration: 08/04/2023 9:20 AM Patient Location: OR Staffing Anesthesiologist: Amanda Alcantar DO MELT SUPERVISOR: Mariia Aguero APRN.MELT SUPERVISOR Other anesthesia staff/rotator: Cari Elizondo APRN.MELT SUPERVISOR Performed by: anesthesiologist Preparation Sterility Preparation: hand hygiene performed prior to procedure Site Prep: Betadine and chlorhexidine Procedure Details Indication: need for IV access Needle Size/Type: 14 gauge angiocath Orientation: Left Location: Antecubital Imaging Guidance Used: Yes Image in Chart: Yes SIGNATURE: Amanda Alcantar DO PATIENT NAME: Susi Naqvi Ortiz DATE: August 04, 2023 TIME: 9:30 AM CSN: [id number] [facility] 08-03-2023 Miscellaneous Notes BMI SPECIALTY CARE COORDINATION SURGERY PRE-OP EDUCATION NOTE Phoned patient to reinforce prior pre-op instruction and answer any questions she might have. No answer. Left brief vmm including contact info for this RN and requested call back. documented in this encounter [facility] 07-21-2023 Note HNO ID: [id number] Author: EARL MCGEE RD Service: ? Author Type: Registered Dietitian Type: Progress Notes Filed: 07/21/2023 13:02 Note Text: This visit was performed virtually due to the COVID-19 epidemic as an effort to protect patients and minimize exposure. Consent from patient received to conduct visit virtually. This Team Access Model visit is a virtual GROUP encounter. It required patient-provider interaction for the medical decision making as documented below. I have communicated my name and active licensure. The patient?s identity and physical location were verified at the time of this visit. Either the patient or their legal asset protection representative has been informed of the risks and benefits of -- and alternatives to -- treatment through a remote evaluation and consents to proceed with the evaluation remotely. Patient's weight per yesterdays appointment of 385 lbs, 12.9 oz TOPIC: LIFE STYLE CHANGES: Pre-op weight loss surgery (BPD-DS): Diet and Exercise PROGRESS: Nutrition Intervention (date of last encounter 03/05/23): Instructions for Liquid Diet before surgery Start the full liquid diet 3 weeks before surgery - Use only the approved protein shakes: 4.5 bottles/day Slim Fast Advanced Nutrition OR 5.5 packets/day Light Start [place] Breakfast Essentials mixed with 1% or skim milk OR 5 bottles/day Atkins Protein Shake (15 gm protein version) OR 4.5 bottles/day Boost Glucose Control OR 4.5 bottles/day OWYN (20 gm protein and 180 calories version) - Drink at least 64 oz of fluid per day (no calories, no caffeine, no carbonation) - Other clear liquids you can include: clear broth, sugar free jello or popsicles, decaffeinated coffee or tea, no sugar added flavoring packets such as Crystal Lite - Take a Super B Complex vitamin (75-100 mg of Thiamin) daily during the liquid diet 2. Day before surgery: - Finish your last protein shake before 6 pm - Drink at least 64 oz of fluid per day (no calories, no caffeine, no carbonation) - Drink 28-32 fl oz of regular sports drink (Gatorade, Powerade, etc.) 3. Day of surgery: - Drink 12-20 fl oz of regular sports drink - Stop drinking liquids 2 hours before scheduled arrival time 4. Advance diet as tolerated after surgery: - Phase 1- Clear liquids (only in the hospital) - Phase 2- Full liquids. Try to consume at least 60 grams of protein per day in the form of a liquid, high protein shake. Aim to drink 4-8 fl oz of protein shake 3 times per day. Try to drink at least 64 oz per day of water or other clear liquids between shakes. - Phase 3- Soft, high protein foods. Try to consume 3-4 oz of protein 3 times per day from poultry, beef, fish, seafood, eggs, cheese, Bhutanese yogurt, cottage cheese, beans, lentils, tofu. Choose meat products that are tender, shredded and/or ground to increase tolerance. Remember to chew food well, eat slow, take small bites CHANGES IN TREATMENT: Patient met goal(s): Yes Diagnosis: has not changed. Allergies: Adhes. Eizc-Knsd-Twtazcrnjbaq, Adhesive Tape-Silicones, Augmentin [Amoxicillin-Pot Clavulanate], Keflex [Cephalexin], Penicillins, and Ultram [Tramadol Hcl] Medications: Current Outpatient Medications Medication Sig Dispense Refill omeprazole (PRILOSEC) 40 mg capsule TAKE 1 CAPSULE BY MOUTH 30 MINUTES BEFORE morning meal lidocaine (LIDODERM) 5 % Apply 1 Patch as directed every 24 hours. montelukast (SINGULAIR) 10 mg tablet Take 10 mg by mouth daily at bedtime. oxyCODONE IR (ROXICODONE) 5 mg immediate release tablet Take 1 tablet by mouth every 8 hours as needed for pain. [address] (PROTONIX) 40 mg tablet Take 1 tablet by mouth once daily. 90 tablet 0 ondansetron (ZOFRAN) 4 mg tablet Take 1 tablet by mouth every 8 hours as needed for nausea/vomiting. 20 tablet 1 senna-docusate (SENNA-S) 8.6-50 mg per tablet Take 1-2 tablets by mouth once daily. Do not take if you have diarrhea, unless otherwise advised. 60 tablet 1 ARIPiprazole (ABILIFY) 10 mg tablet Take 10 mg by mouth daily at bedtime. famotidine (PEPCID) 20 mg tablet Take 20 mg by mouth twice daily as needed. lamoTRIgine (LAMICTAL) 100 mg tablet Take 100 mg by mouth every morning. prazosin (MINIPRESS) 1 mg cap Take 1 mg by mouth daily at bedtime. propranolol (INDERAL) 60 mg tablet Take 60 mg by mouth twice daily. DULoxetine (CYMBALTA) 60 mg capsule Take 60 mg by mouth once daily. acetaminophen (TYLENOL) 325 mg tablet Take 650 mg by mouth as needed. No current facility-administered medications for this visit. (currently taking) ; Anthropometrics: Height: Last 1 Encounter Ht Readings: Date: Ht: 03/10/2023 162.6 cm (5' 4 ) Current weight: Last 1 Encounter Wt Readings: Date: Wt: 03/10/2023 181.4 kg (400 lb) There is no height or weight on file to calculate BMI. RMR can't be calculated - Weight unrecorded in last 120 days. Malnutrition Screening Significant unintentional weight (more content not included)... [facility] 07-20-2023 Note HNO ID: [id number] Author: JOE GRANDA MD Service: ? Author Type: Physician Type: Progress Notes Filed: 07/20/2023 14:06 Note Text: SURGERY PREOPERATIVE VISIT NOTE Name: Susi Ortiz Medical Record: [id number] Encounter No.: [id number] Susi Ortiz is a 38 year old female seen in surgery clinic today for their final preoperative assessment. INTERVAL NOTE: Well prepared for surgery. Prior aborted laparoscopic procedure. VTE RISK CALCULATION: 0.42 % PLANNED PROCEDURE: OPEN biliopancreatic diversion with duodenal switch PAST MEDICAL HISTORY: PAST MEDICAL HISTORY Diagnosis Date Bipolar disorder (HCC) DDD (degenerative disc disease), lumbar Depression Eczema GERD (gastroesophageal reflux disease) Migraine PAST SURGICAL HISTORY: PAST SURGICAL HISTORY Procedure Laterality Date CHOLECYSTECTOMY HX 06/29/2007 LAP SLEEVE GASTRECTOMY 2017 NEUROPLASTY AND/TRANSPOS MEDIAN NRV CARPAL TUNNE 2008;2009 bilateral S PROBE PERC LUMBAR DISCECTOMY 2011; 2012 L4, L5 and L5 S1 SPLENECTOMY TOTAL SEPARATE PROCEDURE 06/29/2014 SOCIAL HISTORY: Social History Tobacco Use Smoking status: Former Packs/day: 0.50 Years: 5.00 Additional pack years: 0.00 Total pack years: 2.50 Types: Cigarettes Quit date: 12/27/2013 Years since quittin.5 Smokeless tobacco: Never Vaping Use Vaping Use: Never used Substance Use Topics Alcohol use: Not Currently Comment: None since 2012 Drug use: Never ALLERGIES: ALLERGIES Allergen Reactions Adhes. Wbxt-Sahn-Do* Rash Adhesive Tape-Silic* Rash Augmentin [Amoxicil* Diarrhea Keflex [Cephalexin] Rash, Itching Penicillins Hives Ultram [Tramadol Hc* Itching MEDICATIONS: Prior to Admission Medications: omeprazole (PRILOSEC) 40 mg capsule TAKE 1 CAPSULE BY MOUTH 30 MINUTES BEFORE morning meal lidocaine (LIDODERM) 5 % Apply 1 Patch as directed every 24 hours. montelukast (SINGULAIR) 10 mg tablet Take 10 mg by mouth daily at bedtime. oxyCODONE IR (ROXICODONE) 5 mg immediate release tablet Take 1 tablet by mouth every 8 hours as needed for pain. pantoprazole DR (PROTONIX) 40 mg tablet Take 1 tablet by mouth once daily. ondansetron (ZOFRAN) 4 mg tablet Take 1 tablet by mouth every 8 hours as needed for nausea/vomiting. senna-docusate (SENNA-S) 8.6-50 mg per tablet Take 1-2 tablets by mouth once daily. Do not take if you have diarrhea, unless otherwise advised. ARIPiprazole (ABILIFY) 10 mg tablet Take 10 mg by mouth daily at bedtime. famotidine (PEPCID) 20 mg tablet Take 20 mg by mouth twice daily as needed. lamoTRIgine (LAMICTAL) 100 mg tablet Take 100 mg by mouth every morning. prazosin (MINIPRESS) 1 mg cap Take 1 mg by mouth daily at bedtime. propranolol (INDERAL) 60 mg tablet Take 60 mg by mouth twice daily. DULoxetine (CYMBALTA) 60 mg capsule Take 60 mg by mouth once daily. acetaminophen (TYLENOL) 325 mg tablet Take 650 mg by mouth as needed. No current facility-administered medications for this visit. VISIT NOTE This patient was seen in clinic today to obtain informed consent, to discuss the details of their upcoming operation including the appropriate expectations for perioperative and postoperative care. In addition, preoperative and postoperative relevant prescriptions were provided and explained during this clinic visit. Based on co morbidities, age and gender, DVT risk is elevated. ERAS protocol discussed. Narcotics sparing postop recovery discussed. The consent discussion included the risks, benefits and anticipated outcomes of the procedure, the risks and benefits of the alternatives to the procedure, and the roles and tasks of the personnel to be involved. Patient is scheduled for OPEN biliopancreatic diversion with duodenal switch. I have discussed the risks of surgery including infection, bleeding including injury to the spleen, the mesenteric blood vessels, conversion in the open, postoperative leak requiring stenting, reoperation, resection or repair, stricture requiring dilation or revision, marginal ulcer requiring treatment including reoperation, and incisional hernias. I have also discussed the long-term and short-term risks of internal hernias and complications related to it. I have discussed regarding unsatisfactory weight loss as well as penitentiary weight regain. I have also discussed medical complications including urinary tract infections, myocardial infarction, DVT, PE, prolonged ICU stay, and possible postoperative mechanical ventilation and the risk of mortality. I have reviewed with this patient needed nutritional changes, post-operative recovery, and the potential for excess skin following surgery and subsequent weight loss. Risks of nicotine before and after bariatric surgery were also discussed with patient. I have discussed in detail regarding postoperative hospital stay as well as recovery. She understands this is a malabsorptive procedure well and christian (more content not included)... [place] [facility] 06-11-2023 Note HNO ID: [id number] Author: Heidy Dsouza RN Service: ? Author Type: ? Type: Progress Notes Filed: 06/11/2023 5:30 PM Note Text: Received approval for open LEIDA. Scheduled on 08/04/[address] Granda at . [facility] 04-30-2023 Note HNO ID: [id number] Author: Shaunna Persaud, PhD Service: ? Author Type: Psychologist Type: Progress Notes Filed: 04/30/2023 9:45 AM Note Text: [facility] Progress Note 04/30/2023 Billing code: Robert Patient did not attend, cancel, or reschedule this appointment. Shaunna Persaud, Ph.D. Clinical Health Psychologist [facility] 04-27-2023 Miscellaneous Notes This patient underwent a diagnostic laparoscopy with some enterolysis when she was intended to have a duodenal switch procedure, completed laparoscopically. My impression was that this was not possible at this time for several reasons. 1 was the severity of her adhesions would require an open operation and likely the assistance of a second staff surgeon because of her complex prior surgical history including a leak after sleeve gastrectomy causing significant intra-abdominal adhesions that were not amenable to laparoscopic treatment. The second was severe intra-abdominal obesity due to her BMI of 67 that did not allow her ileum to be retracted upwards much at all. Therefore I decided to stop the procedure, continue her on a protein sparing modified fast diet, and return for a planned open duodenal switch operation with the availability of a second staff surgeon for assistance because of the severe intra-abdominal adhesions from her prior surgery and leakage. This was also discussed with the patient afterwards and she was appreciative and understood all of these necessities to give her the best chance for a safe and effective weight loss operation. We will plan on scheduling her and she will continue on the protein sparing modified fast until then. Joe Granda MD documented in this encounter [facility] 04-13-2023 Note HNO ID: [id number] Author: Rupinder Colbert RD Service: ? Author Type: Registered Dietitian Type: Progress Notes Filed: 04/13/2023 5:48 PM Note Text: Patient presented for virtual visit, however she has not yet had bariatric surgery and does not need 2 week post op visit at this time. Will be rescheduled 2 weeks before surgery once scheduled. Rupinder Colbert RD, LD [facility] 04-13-2023 History of Presen t illness Narrative Patient presented for virtual visit, however she has not yet had bariatric surgery and does not need 2 week post op visit at this time. Will be rescheduled 2 weeks before surgery once scheduled. Rupinder Colbert RD, LD documented in this encounter [facility] 04-11-2023 Note HNO ID: [id number] Author: Note, Interface Service: ? Author Type: ? Type: Progress Notes Filed: 04/11/2023 3:29 AM Note Text: Epic Scheduled Downtime: 04/11/2023 1:00:00 AM to 04/11/2023 1:28:00 AM [facility] 04-01-2023 Note HNO ID: [id number] Author: Mary Hughes MD Service: General Surgery Author Type: Resident Type: Progress Notes Filed: 04/01/2023 9:09 AM Note Text: GENERAL SURGERY SURGERY PROGRESS NOTE Service Date: April 01, 2023 Assessment and Plan: Susi Ortiz is a 37 year old female PMH morbid obesity s/p 10/ diagnostic lap, EGD and aborted duodenal switch due to short mesentery. Advance to FLD diet Pain control DVT ppx with BID LVX Continue home abilify, cymbalta, lamictal and prazosin Continue home singulair DC potentially later today pending FLD tolerance and pain control Plan discussed with staff Dr Kalee Hughes M.D. General Surgery Resident For team paging 6AM-6PM during weekdays: [phone] for [facility] Team For team paging after 6PM or on weekend / holidays: [phone] for General Surgery Subjective: - No acute events overnight - Pain: well controlled on current regimen - Diet: tolerating CLD, no N/V/D - Flatus: + - Bowel movement: none yet PHYSICAL EXAM BP 122/66 Pulse 79 Temp 36.6 ?C (97.9 ?F) (Oral) Resp 18 Ht 162.6 cm (5' 4 ) Wt (!) 177.8 kg (392 lb) LMP 09/24/2015 SpO2 91% BMI 67.29 kg/m? Intake/Output Summary (Last 24 hours) at 04/01/2023 0904 Last data filed at 04/01/2023 0202 Gross per 24 hour Intake 1543 ml Output 1750 ml Net -207 ml Constitutional: well appearing, no acute distress Cardiovascular: regular rate and rhythm, wwp Resp: normal wob GI: Soft, Non-tender, and Non-distended Integumentary: warm and dry Neurological/Psychiatric: alert and oriented Wound/Surgical Site: incisions c/d/i Labs: CBC, BMP, MG, PHOS Recent Labs 04/01/23 0718 01/23/23 1536 10/04/15 1405 09/06/15 1006 WBC 15.94* 13.68* 12.92* 14.43* HB 12.7 14.5 14.0 14.0 HCT 39.2 46.2* 43.5 42.9 PLT 463* 624* 707* 558* NA 137 135* 140 139 K 4.2 4.5 3.8 4.1 CHLOR 102 100 104 104 CO2 25 19* 18* 25 BUN 5* 7 13 10 CREAT 0.59 0.64 0.71 0.82 GLUC 130* 73* 91 98 CA 9.1 10.2 9.9 9.0 Liver Function, Amylase, AND Lipase Recent Labs 01/23/23 1536 03/13/15 1333 TPROT 7.8 6.6 ALB 3.9 3.8 ALT 17 18 AST 33 20 ALKPHOS 101 109 TBILI 0.2 <0.2 Coags Recent Labs 09/06/15 1006 APTT 30.3 INR 0.9 Cardiac Enzymes [facility] 03-31-2023 Note HNO ID: [id number] Author: Heber Riddle SRNA Service: ? Author Type: Student Type: Anesthesia Procedure Notes Filed: 03/31/2023 11:20 AM Note Text: ANESTHESIOLOGY PROCEDURE NOTE Airway General Information Procedure Start Time/Medication Administration: 03/31/2023 10:35 AM Patient location during procedure: OR Timeout Performed Pre-procedure: timeout performed Consent Obtained: Yes Patient identity confirmed: arm band and patient Staffing Anesthesiologist: Darrel Conklin MD MELT SUPERVISOR: Sheridan Claire APRN.MELT SUPERVISOR SRNA: Heber Riddle SRNA Performed by: LILIANA Indications and Patient Condition Indications for airway management: anesthesia Preoxygenated: yes anesthesia circuit Patient position: sniffing and ramp Method: asleep Difficult Mask: No Airway Accessory: oral airway Final Airway Details Final airway type: endotracheal airway Final Endotracheal Airway: ETT Cuffed: yes Successful intubation technique: video laryngoscopy Devices used: Garcia and intubating stylet Endotracheal tube insertion site: oral Blade: Isela Blade size: #4 ETT size (mm): 8.0 Measured from: lips Measurement (cm): 22 Placement verified by: chest auscultation and capnometry Cormack-Lehane Classification: grade I - full view of glottis Number of attempts at approach: 1 Airway not difficult SIGNATURE: LILIANA Posada PATIENT NAME: Susi Naqvi Ortiz DATE: March 31, 2023 TIME: 11:18 AM CSN: [id number] [facility] 03-10-2023 Instructions Shruti Alvarado APRN.[facility] - 03/10/2023 2:02 PM EDT PATIENT PREOPERATIVE INSTRUCTIONS Joe Granda MD has scheduled you for your procedure at this surgery center: [facility]: [phone] --[id number] [id number]. Please check in on the 1st floor at registration desk 6. Please read below carefully for your personalized instructions. Dietary Restrictions: - FOLLOW SURGEONS INSTRUCTIONS Medications: Unless instructed differently below, stay on all of your medications until your surgery. If you start any new medications after today's visit, please contact your surgeon. Pre-Surgery Med Instructions Medication Instructions omeprazole (PRILOSEC) 40 mg capsule Take the day of surgery with a small sip of water pantoprazole DR (PROTONIX) 40 mg tablet Take the day of surgery with a small sip of water ARIPiprazole (ABILIFY) 10 mg tablet Do not take the day of surgery famotidine (PEPCID) 20 mg tablet Take the day of surgery with a small sip of water lamoTRIgine (LAMICTAL) 100 mg tablet Take the day of surgery with a small sip of water prazosin (MINIPRESS) 1 mg cap Do not take the day of surgery propranolol (INDERAL) 60 mg tablet Take the day of surgery with a small sip of water DULoxetine (CYMBALTA) 60 mg capsule Take the day of surgery with a small sip of water If you start any new medications after today's visit, please contact the surgeon's office. Blood Thinning Medications: - Stop NSAIDS (Ibuprofen, Advil, Aleve, Motrin, Celebrex, Mobic, etc.) 7 days before surgery, as directed by your surgeon. - Stop Aspirin 7 days before surgery, as directed by your surgeon. - Stop Vitamin E, ALL multi-vitamins, herbals and dietary supplements 7 days before surgery. - You may take Tylenol (Acetaminophen) or any of your pain medications that do not contain aspirin or NSAIDS as needed. Important Reminders: - Candy, mints, and tobacco products are NOT permitted the morning of surgery. - Hearing aids, dentures and glasses may be worn the morning of surgery. - NO jewelry, body piercings, makeup, hairpins or contacts are to be worn the day of surgery. If you develop symptoms such as a fever, cold, or flu, or have other changes to your health within TWO DAYS of scheduled surgery or the morning of surgery, please contact the surgery center above. Personal Belongings: -Please have photo ID and insurance cards. -If you do not have a copy of advance directives on file with us, please bring a copy with you on the day of surgery. - Leave ALL valuables and money at home or with family members. For Outpatient Procedures: - YOU MUST HAVE A RESPONSIBLE TRIM MECHANIC TAKE YOU HOME. A BLACKSMITH SUPERVISOR OR ARTIST'S REPRESENTATIVE CANNOT BE MADE A RESPONSIBLE TRIM MECHANIC. - We recommend that a responsible person stays with you overnight to take care of you. - You cannot stay in a hotel alone after outpatient surgery. You will not be permitted to have your surgery, if you do not have someone to take care of you. Arrival Time for Surgery: - The Surgery Center or hospital where you are having surgery will call the afternoon before surgery (or Thursday for Thursday surgery) with a scheduled arrival time. - If you have not heard by 4 pm, please contact the surgery center above. Please be aware that emergency situations arise, which may delay or change your surgical time. If this happens, we will notify you as soon as possible and regret any inconvenience. If you already have an Advance Directive, please fax a copy to [phone] or email to for it to be added to your chart. If you do not have an Advance Directive, you can find the appropriate form and more information at [email or web address]. We recommend that you complete the Advance Directive form found on the website and bring it with you the day of your surgery. It can be witnessed and scanned into your chart that day. Shruti Alvarado APRN.KATTY documented in this encounter [facility] 03-10-2023 History and physical note HISTORY AND PHYSICAL EXAMINATION SERVICE DATE: 03/10/2023 SERVICE TIME: 1:33 PM PRIMARY CARE PHYSICIAN: Elizabet Simental DO REASON FOR VISIT: Susi Ortiz is a 37 year old female who is scheduled for LAPAROSCOPY SURGICAL GASTRIC RESTRICTIVE PROCEDURE BILIOPANCREATIC DIVERSION WITH DUODENAL SWITCH at the request of Dr. Joe Granda for consultation. My final recommendation will be communicated back to the requesting physician by way of shared medical record or letter. The patient has the following: ACTIVE PROBLEM LIST Thrombocytosis Tonsillar Enlargement Toney On Cpap Gastroesophageal Reflux Disease Ddd (Degenerative Disc Disease), Lumbar Bipolar Affective Disorder (Hcc) Recurrent Tonsillitis Morbid Obesity With Body Mass Index of 60.0-69.9 in Adult (Hcc) Migraine Subjective CHIEF COMPLAINT: Morbid obesity HPI: 37 year old female with my morbid obesity. s/p gastric sleeve in 2017 with leak and re-op gastrotomy and stent extraction shortly after. She reports some ongoing GERD symptoms that have worsened since her bariatric surgery. She is on pantoprazole, pepcid, and carafate with minimal relief. Symptoms are generally worsened with meals but can occur anytime. She admits to some nausea and upper abdominal pain but no changes in bowel movements, major weight changes, or changes in appetite per patient. PAST MEDICAL HISTORY Diagnosis Date Bipolar disorder ([facility]) DDD (degenerative disc disease), lumbar Depression Eczema GERD (gastroesophageal reflux disease) Migraine PAST SURGICAL HISTORY Procedure Laterality Date CHOLECYSTECTOMY HX 06/29/2007 LAP SLEEVE GASTRECTOMY 2017 NEUROPLASTY &/TRANSPOS MEDIAN NRV CARPAL TUNNE 2008;2009 bilateral S PROBE PERC LUMBAR DISCECTOMY 2011; 2012 L4, L5 and L5 S1 SPLENECTOMY TOTAL SEPARATE PROCEDURE 06/29/2014 FAMILY HISTORY Problem Relation Age of Onset Thyroid Mother hypothyrodism Obesity Mother Obesity Father Diabetes Father HTN; Lymphoma Obesity Sister other (Migraines [Other]) Sister Diabetes Paternal Grandmother Stroke Paternal Grandfather None Daughter None Son Diabetes Paternal Uncle SOCIAL HISTORY: Social History Tobacco Use Smoking status: Former Packs/day: 0.50 Years: 5.00 Additional pack years: 0.00 Total pack years: 2.50 Types: Cigarettes Quit date: 12/27/2013 Years since quittin.2 Smokeless tobacco: Never Vaping Use Vaping Use: Never used Substance Use Topics Alcohol use: Not Currently Comment: None since 2012 Drug use: Never Prior to Admission medications as of 03/10/23 1527 Medication Sig Last Dose Taking omeprazole (PRILOSEC) 40 mg capsule TAKE 1 CAPSULE BY MOUTH 30 MINUTES BEFORE morning meal Yes lidocaine (LIDODERM) 5 % Apply 1 Patch as directed every 24 hours. Yes montelukast (SINGULAIR) 10 mg tablet Take 10 mg by mouth daily at bedtime. Yes oxyCODONE IR (ROXICODONE) 5 mg immediate release tablet Take 1 tablet by mouth every 8 hours as needed for pain. Yes pantoprazole DR (PROTONIX) 40 mg tablet Take 1 tablet by mouth once daily. Yes ondansetron (ZOFRAN) 4 mg tablet Take 1 tablet by mouth every 8 hours as needed for nausea/vomiting. Yes senna-docusate (SENNA-S) 8.6-50 mg per tablet Take 1-2 tablets by mouth once daily. Do not take if you have diarrhea, unless otherwise advised. Yes enoxaparin (LOVENOX) 40 mg/0.4 mL Inject 0.4 mL subcutaneously once daily. Yes ARIPiprazole (ABILIFY) 10 mg tablet Take 10 mg by mouth daily at bedtime. Yes famotidine (PEPCID) 20 mg tablet Take 20 mg by mouth twice daily as needed. Yes lamoTRIgine (LAMICTAL) 100 mg tablet Take 100 mg by mouth every morning. Yes prazosin (MINIPRESS) 1 mg cap Take 1 mg by mouth daily at bedtime. Yes propranolol (INDERAL) 60 mg tablet Take 60 mg by mouth twice daily. Yes DULoxetine (CYMBALTA) 60 mg capsule Take 60 mg by mouth once daily. Yes acetaminophen (TYLENOL) 325 mg tablet Take 650 mg by mouth as needed. Yes No medication comments found. ALLERGIES Allergen Reactions Adhes. Lifi-Habq-My* Rash Adhesive Tape-Silic* Rash Augmentin [Amoxicil* Diarrhea Keflex [Cephalexin] Rash, Itching Penicillins Hives Ultram [Tramadol Hc* Itching COVID VACCINATION STATUS: Fully vaccinated REVIEW OF SYSTEMS: PAIN ASSESSMENT: General: No weight loss, malaise or fevers. Neuro: No history of TIA's, stroke, SUPERVISOR ELECTRIC MOTOR TESTING tumor, impaired sensorium, hemiplegia, paraplegia or quadraplegia. No neurological symptoms or problems. Positive for Migraines on Inderal Respiratory: Positive for TONEY non compliant with CPAP , Negative for No history of current cough or dyspnea, or pneumonia in the past 6 weeks. No history of respiratory/pulmonary symptoms or problems Cardiovascular: No history of HTN requiring medication, no history of angina, CHF, LA, cardiac surgery or stents. Denies rest pain, gangrene or revascularization/amputation for PVD. No history of cardiovascular symptoms or problems. GI: See HPI : No history of dysuria, frequency or incontinence,, stones or chronic kidney disease, No difficulty urinating, nocturia > 1 time per night or hematuria GREIGE GOODS INSPECTOR: Negative for abnormal vaginal bleeding, abnormal vaginal discharge. : Denies, Patient's last menstrual period was 09/24/2015. Endocrine: No history of diabetes. Has not taken steroids within the past 30 days. No history of endocrinological symptoms or problems. Hematology: Bleeding / clotting disorders (Thrombocytopenia) s/p splenectomy in 2015 Oncology: No history of CA metastasis, chemo within 30 days, or radiotherapy within 90 days. Has not lost 10% of body wt in 6 months. No history of oncological symptoms or problems. Psych: Bipolar disorder Musculoskeletal: Back pain Skin: Negative for lesions, rash and itching. Objective PHYSICAL EXAM: VITALS: BP 138/66 Pulse 73 Temp (Src) 97 (Temporal) Resp 16 Ht 5' 4 (1.63m) Wt 400 lb (181.4kg) SpO2 97% LMP 09/24/2015 BMI 68.63 kg/(m^2). General: Alert and oriented, No acute distress, Obese Skin: Normal color, no rash, no lesions. HEENT: EOM, pupils equal, round and reactive., No carotid bruits Cardiovascular: Normal S1 & S2, no rubs, murmurs or gallops. No JVD. Pulse regular. Lungs: Normal breath sounds, no wheezes or crackles. Abdomen: Soft, non-tender, no rigidity., Positive bowel sounds Extremities: No deformity, no edema or tenderness, no joint swelling or clubbing. Neurological: Normal cognition and motor skills. Gait normal. No weakness or sensory deficit. Pulses: Carotid and radial pulses normal +2. Diagnostic tests reviewed for today's visit: Lab Value Units Date High Low HB 14.5 g/dL 01/23/2023 15.5 11.5 HCT 46.2 % 01/23/2023 46.0 36.0 WBC 13.68 k/uL 01/23/2023 11.00 3.70 PLT 624 k/uL 01/23/2023 400 150 NA 135 mmol/L 01/23/2023 144 136 K 4.5 mmol/L 01/23/2023 5.1 3.7 GLUC 73 mg/dL 01/23/2023 99 74 BUN 7 mg/dL 01/23/2023 21 7 CREAT 0.64 mg/dL 01/23/2023 0.96 0.58 PTSEC No results within date range. INR No results within date range. APTT No results within date range. ALT 17 U/L 01/23/2023 38 7 AST 33 U/L 01/23/2023 35 13 TBILI 0.2 mg/dL 01/23/2023 1.3 0.2 TSH No results within date range. Lab Value Units Date High Low HCGQT No results within date range. UHCG No results within date range. HCG, BODY* No results within date range. Lab Value Units Date High Low ABORHD No results within date range. ABSCREEN No results within date range. No results found for: HBA1C Most recent EKG: normal sinus rhythm, normal axis, normal intervals, reviewed by myself., reviewed by technical spec. All in [facility] Assessment/Plan TONEY on CPAP Assessment: non compliant with CPAP Gastroesophageal reflux disease Assessment: stable on PPI Bipolar affective disorder ([facility]) Assessment: stable on medication Denies any suicidal ideations Morbid obesity with body mass index of 60.0-69.9 in adult ([facility]) Assessment: Body mass index is 68.66 kg/m . Thrombocytosis ([facility]) Assessment: s/p splenectomy in 2014, Elevated Platelet count Platelet Count Date Value Ref Range Status 01/23/2023 624 (H) 150 - 400 k/uL Final Migraine Assessment: stable on Inderal twice a day METS: Walk a block or two on level ground (2.75 METs) Do moderate work around the house such as vacuuming, sweeping floors, or carrying in groceries (3.50 METs) Patient denies any chest pain or undue shortness of breath with the above physical activity. ANESTHESIA FINDINGS: Intubation History: No history of difficult intubation Significant Anesthesia Considerations: None Airway Exam: General: Morbid obesity Mallampati Score is CLASS III ULBT: Class II - Lower incisors can bite the upper lip below the jacinta line Neck: Distance from hyoid to mentum during neck extension is at least 3 finger breaths, Short neck, Distance from hyoid to mentum during neck extension is NOT 3 finger breaths, thick neck Mouth: Normal tongue size and Mouth opening greater than 2 finger breaths Dentition: Intact Airway History: No abnormal airway history Sleep Apnea Probability Snores loudly: Yes Tired, fatigued or sleepy in daytime: Yes Stops breathing or choking/gasping during sleep: Yes High blood pressure: No Sleep Apnea Probability Score 03/04/2023 11/28/2021 Sleep Apnea Screen V2 59 (Recommend sleep study) 61.57 (Recommend sleep study) PLAN This patient is optimally prepared for surgery. CONSULTS: Patient does not require consults for optimization at this time. The Following Tests/Procedures Have Been Initiated: Labs not indicated per [facility] protocol, EKG not indicated per [facility] protocol Planned Anesthetic: Per anesthesia choice Instructions Given to Patient: Instructions located in the after visit summary. Patient given verbal and written preop instructions and voices comprehension and compliance. SIGNATURE: Shruti Alvarado APRN.CNP PATIENT NAME: Susi Milesenship DATE: March 10, 2023 TIME: 1:33 PM documented in this encounter [facility] 03-05-2023 Note HNO ID: [id number] Author: Mireille Dao RD Service: ? Author Type: Registered Dietitian Type: Progress Notes Filed: 03/05/2023 1:53 PM Note Text: I have communicated my name and active licensure. The patient's identity and physical location were verified at the time of this visit. Either the patient or their legal asset protection representative has been informed of the risks and benefits of -- and alternatives to -- treatment through a remote evaluation and consents to proceed with the evaluation remotely. Patient reports weight (as measured by home scale) of ? pounds. TOPIC: LIFE STYLE CHANGES: Pre-op weight loss surgery (conversion of LSG to BPD/DS): Diet and Exercise Nutrition Intervention 03/05/2023: Instructions for Liquid Diet before surgery Start the full liquid diet 3 weeks before surgery - Use only the approved protein shakes: 4.5 bottles/day Slim Fast Advanced Nutrition OR 5.5 packets/day Light Start [place] Breakfast Essentials mixed with 1% or skim milk OR 5 bottles/day Atkins Protein Shake (15 gm protein version) OR 4.5 bottles/day Boost Glucose Control OR 4.5 bottles/day OWYN (20 gm protein and 180 calories version) - Drink at least 64 oz of fluid per day (no calories, no caffeine, no carbonation) - Other clear liquids you can include: clear broth, sugar free jello or popsicles, decaffeinated coffee or tea, no sugar added flavoring packets such as Crystal Lite - Take a Super B Complex vitamin (75-100 mg of Thiamin) daily during the liquid diet 2. Day before surgery: - Finish your last protein shake before 6 pm - Drink at least 64 oz of fluid per day (no calories, no caffeine, no carbonation) - Drink 28-32 fl oz of regular sports drink (Gatorade, Powerade, etc.) 3. Day of surgery: - Drink 12-20 fl oz of regular sports drink - Stop drinking liquids 2 hours before scheduled arrival time 4. Advance diet as tolerated after surgery: - Phase 1- Clear liquids (only in the hospital) - Phase 2- Full liquids. Try to consume at least 60 grams of protein per day in the form of a liquid, high protein shake. Aim to drink 4-8 fl oz of protein shake 3 times per day. Try to drink at least 64 oz per day of water or other clear liquids between shakes. - Phase 3- Soft, high protein foods. Try to consume 3-4 oz of protein 3 times per day from poultry, beef, fish, seafood, eggs, cheese, Bhutanese yogurt, cottage cheese, beans, lentils, tofu. Choose meat products that are tender, shredded and/or ground to increase tolerance. Remember to chew food well, eat slow, take small bites CHANGES IN TREATMENT: Patient met goal(s): Partially Diagnosis: has not changed. Allergies: Adhes. Mdak-Uhwh-Oqpiiemrutau, Adhesive Tape-Silicones, Augmentin [Amoxicillin-Pot Clavulanate], Keflex [Cephalexin], Penicillins, and Ultram [Tramadol Hcl] Anthropometrics: Height: Last 1 Encounter Ht Readings: Date: Ht: 03/05/2023 160 cm (5' 3 ) Weight: Last 1 Encounter Wt Readings: Date: Wt: 12/15/2022 174.6 kg (385 lb) Body mass index is 68.2 kg/m?. Resting Metabolic Rate: 2401 Malnutrition Screening Significant unintentional weight loss? No Eating less than 75% of usual intake for more than 2 weeks? No Nutritional status: Educational materials provided: none this visit READINESS TO LEARN Cognitive ability: Alert and oriented Motivation to learn: Interested Family support: Unable to assess - Family not present Instruction provided to: Patient Patient learns best by: Multiple Methods Factors affecting learning: None Physical limitations affecting learning: None Likelihood of Adherence: Moderate Patient participated in preop bariatric surgery shared nutrition appointment. Patient participated actively in group. She is scheduled for surgery 03/31/23 and was instructed to start the pre-op diet on 03/15. She will follow the full liquid diet and is using Slim Fast protein shakes. Patient has all appropriate beverages and B complex supplement. She plans to take Procare ADEK and Ca citrate supplements after surgery. Nutrition Diagnosis: Overweight/obesity, related to, decreased energy needs, as evidenced by BMI above normative standard for age and gender. PROGRESS: Nutrition Intervention (date of last encounter 12/15/22): 1. Eat consistently with 3 meals per day. Drink a protein shake to avoid skipping meals. 2. Consume 77 grams of protein per day. After surgery protein needs increase to 96-128 grams per day. 3. Aim for 20-30 grams of protein per meal and include high protein snacks as needed to meet daily protein goal. 4. Have balanced meals that include 4 oz lean protein, half plate of vegetables, and 1/2-1 cup of whole grain starch. 5. Exercise: Strive for daily activity you enjoy! Include strength training and cardio with a goal of 30 minutes 5-6 days per week. 6. Drink at least 64 fl oz per day of water or other beverages that are caffeine and sugar free. Avoid carbonat (more content not included)... [facility] 03-05-2023 Instructions Mireille Dao, BRENDON - 03/05/2023 1:53 PM EDT Instructions for Liquid Diet before surgery Start the full liquid diet 3 weeks before surgery - Use only the approved protein shakes: 4.5 bottles/day Slim Fast Advanced Nutrition OR 5.5 packets/day Light Start Woodrow Breakfast Essentials mixed with 1% or skim milk OR 5 bottles/day Atkins Protein Shake (15 gm protein version) OR 4.5 bottles/day Boost Glucose Control OR 4.5 bottles/day OWYN (20 gm protein and 180 calories version) - Drink at least 64 oz of fluid per day (no calories, no caffeine, no carbonation) - Other clear liquids you can include: clear broth, sugar free jello or popsicles, decaffeinated coffee or tea, no sugar added flavoring packets such as Crystal Lite - Take a Super B Complex vitamin (75-100 mg of Thiamin) daily during the liquid diet 2. Day before surgery: - Finish your last protein shake before 6 pm - Drink at least 64 oz of fluid per day (no calories, no caffeine, no carbonation) - Drink 28-32 fl oz of regular sports drink (Gatorade, Powerade, etc.) 3. Day of surgery: - Drink 12-20 fl oz of regular sports drink - Stop drinking liquids 2 hours before scheduled arrival time 4. Advance diet as tolerated after surgery: - Phase 1- Clear liquids (only in the hospital) - Phase 2- Full liquids. Try to consume at least 60 grams of protein per day in the form of a liquid, high protein shake. Aim to drink 4-8 fl oz of protein shake 3 times per day. Try to drink at least 64 oz per day of water or other clear liquids between shakes. - Phase 3- Soft, high protein foods. Try to consume 3-4 oz of protein 3 times per day from poultry, beef, fish, seafood, eggs, cheese, Bhutanese yogurt, cottage cheese, beans, lentils, tofu. Choose meat products that are tender, shredded and/or ground to increase tolerance. Remember to chew food well, eat slow, take small bites documented in this encounter [facility] 03-05-2023 History of Presen t illness Narrative I have communicated my name and active licensure. The patient's identity and physical location were verified at the time of this visit. Either the patient or their legal asset protection representative has been informed of the risks and benefits of -- and alternatives to -- treatment through a remote evaluation and consents to proceed with the evaluation remotely. Patient reports weight (as measured by home scale) of ? pounds. TOPIC: LIFE STYLE CHANGES: Pre-op weight loss surgery (conversion of LSG to BPD/DS): Diet and Exercise Nutrition Intervention 03/05/2023: Instructions for Liquid Diet before surgery Start the full liquid diet 3 weeks before surgery - Use only the approved protein shakes: 4.5 bottles/day Slim Fast Advanced Nutrition OR 5.5 packets/day Light Start Woodrow Breakfast Essentials mixed with 1% or skim milk OR 5 bottles/day Atkins Protein Shake (15 gm protein version) OR 4.5 bottles/day Boost Glucose Control OR 4.5 bottles/day OWYN (20 gm protein and 180 calories version) - Drink at least 64 oz of fluid per day (no calories, no caffeine, no carbonation) - Other clear liquids you can include: clear broth, sugar free jello or popsicles, decaffeinated coffee or tea, no sugar added flavoring packets such as Crystal Lite - Take a Super B Complex vitamin (75-100 mg of Thiamin) daily during the liquid diet 2. Day before surgery: - Finish your last protein shake before 6 pm - Drink at least 64 oz of fluid per day (no calories, no caffeine, no carbonation) - Drink 28-32 fl oz of regular sports drink (Gatorade, Powerade, etc.) 3. Day of surgery: - Drink 12-20 fl oz of regular sports drink - Stop drinking liquids 2 hours before scheduled arrival time 4. Advance diet as tolerated after surgery: - Phase 1- Clear liquids (only in the hospital) - Phase 2- Full liquids. Try to consume at least 60 grams of protein per day in the form of a liquid, high protein shake. Aim to drink 4-8 fl oz of protein shake 3 times per day. Try to drink at least 64 oz per day of water or other clear liquids between shakes. - Phase 3- Soft, high protein foods. Try to consume 3-4 oz of protein 3 times per day from poultry, beef, fish, seafood, eggs, cheese, Bhutanese yogurt, cottage cheese, beans, lentils, tofu. Choose meat products that are tender, shredded and/or ground to increase tolerance. Remember to chew food well, eat slow, take small bites CHANGES IN TREATMENT: Patient met goal(s): Partially Diagnosis: has not changed. Allergies: Adhes. Jzvt-Ikep-Iecypbbzbhvw, Adhesive Tape-Silicones, Augmentin [Amoxicillin-Pot Clavulanate], Keflex [Cephalexin], Penicillins, and Ultram [Tramadol Hcl] Anthropometrics: Height: Last 1 Encounter Ht Readings: Date: Ht: 03/05/2023 160 cm (5' 3 ) Weight: Last 1 Encounter Wt Readings: Date: Wt: 12/15/2022 174.6 kg (385 lb) Body mass index is 68.2 kg/m . Resting Metabolic Rate: 2401 Malnutrition Screening Significant unintentional weight loss? No Eating less than 75% of usual intake for more than 2 weeks? No Nutritional status: Educational materials provided: none this visit READINESS TO LEARN Cognitive ability: Alert and oriented Motivation to learn: Interested Family support: Unable to assess - Family not present Instruction provided to: Patient Patient learns best by: Multiple Methods Factors affecting learning: None Physical limitations affecting learning: None Likelihood of Adherence: Moderate Patient participated in preop bariatric surgery shared nutrition appointment. Patient participated actively in group. She is scheduled for surgery 03/31/23 and was instructed to start the pre-op diet on 03/15. She will follow the full liquid diet and is using Slim Fast protein shakes. Patient has all appropriate beverages and B complex supplement. She plans to take Procare ADEK and Ca citrate supplements after surgery. Nutrition Diagnosis: Overweight/obesity, related to, decreased energy needs, as evidenced by BMI above normative standard for age and gender. PROGRESS: Nutrition Intervention (date of last encounter 12/15/22): 1. Eat consistently with 3 meals per day. Drink a protein shake to avoid skipping meals. 2. Consume 77 grams of protein per day. After surgery protein needs increase to 96-128 grams per day. 3. Aim for 20-30 grams of protein per meal and include high protein snacks as needed to meet daily protein goal. 4. Have balanced meals that include 4 oz lean protein, half plate of vegetables, and 1/2-1 cup of whole grain starch. 5. Exercise: Strive for daily activity you enjoy! Include strength training and cardio with a goal of 30 minutes 5-6 days per week. 6. Drink at least 64 fl oz per day of water or other beverages that are caffeine and sugar free. Avoid carbonated and high sugar beverages. Practice food and beverage by 30 minutes. 7. Starting 2-3 weeks after surgery. Take daily: Complete multivitamin with 15 mg of Zinc & 1-2 mg of Copper - Vitamin B-complex with 75-100 mg of Thiamin - Iron 45-60 mg - Calcium 1,800-2,000 mg - Vitamin B12 500 mg - Vitamin A 10,000 international unit(s) - Vitamin D3 3,000 international unit(s) - Vitamin E 15 mg, Vitamin K 300 mcg OR choose ONE of the combined bariatric vitamin/mineral supplements: - 3 per day Bariatric Fusion ADEK Complete Capsules AND 1800- 2400 mg per day Calcium Citrate https://www.bariatricfusion.com/ collections/adek/products/bariat ixt-qvakmqsudicl-rhab-adek-vitam yu-jblu-jztk OR - 2 per day Bariatric Advantage High ADEK Multivitamin Capsules AND 6906-7802 mg per day Calcium Citrate AND 45-60 mg per day Iron https://www.bariatricadvantage.c om/jogd-mgyx-btlmdnefgtxf-capsul es OR - 2 per day Celebrate Multi-ADEK with Iron Chewable Tablets AND 6130-8067 mg per day Calcium Citrate https://[employer].evolso/pr oducts/soiek-eqep-lhlt-iron?vari nzm=[id number] OR -1 per day ProCare DS/LEIDA Bariatric Multivitamin with 60 mg Iron AND 0170-9422 mg per day Calcium Citrate https://Talentory.com/procare-h bkyyr-ikjl-hrumg-bariatric-multi mhqlral-bhpyycm-bt-leida/?sku=Vit -VohtDctjME-DFSE-25gs S-LEIDA-30ct Nutrition Monitoring & Evaluation: Follow pre op diet and fluid guidelines Criteria: weight check Need for Follow up: 2 weeks post op Appointment Start Time: 1:00 pm Appointment End Time: 1:21 pm Time Spent on Consult: 21 minutes - Group SIGNATURE: Mireille Dao RD PATIENT NAME: Susi Borjahip DATE: 03/05/2023 TIME: 12:55 PM PAGER: documented in this encounter [facility] 02-26-2023 Note HNO ID: [id number] Author: Pao Hodgson RN Service: ? Author Type: Registered Nurse Type: Progress Notes Filed: 02/26/2023 2:35 PM Note Text: Surgery date rescheduled to 03/31/2023. Pao Hodgson RN [facility] 07-20-2023 Note HNO ID: [id number] Author: Joe Granda MD Service: ? Author Type: Physician Type: Progress Notes Filed: 01/15/2023 11:40 AM Note Text: VIRTUAL VISIT PROGRESS NOTE This is a virtual visit using testhub video visit. It required patient-provider interaction for the medical decision making as documented below. I have communicated my name and active licensure. The patient's identity and physical location were verified at the time of this visit. Either the patient or their legal asset protection representative has been informed of the risks and benefits of -- and alternatives to -- treatment through a remote evaluation and consents to proceed with the evaluation remotely. PREOPERATIVE VISIT NOTE Name: Susi Ortiz Medical Record: [id number] Encounter No.: [id number] Susi Ortiz is a 37 year old female seen in surgery clinic today for their final preoperative assessment. INTERVAL NOTE: Off steroids PLANNED PROCEDURE: 02/03/2023 VTE RISK CALCULATION: 0.27 % LAPAROSCOPY SURGICAL GASTRIC RESTRICTIVE PROCEDURE BILIOPANCREATIC DIVERSION WITH DUODENAL SWITCH HISTORY REVIEWED (electronic chart updated): PAST MEDICAL HISTORY Diagnosis Date Bipolar disorder (HCC) DDD (degenerative disc disease), lumbar Depression Eczema GERD (gastroesophageal reflux disease) Migraine PAST SURGICAL HISTORY Procedure Laterality Date CHOLECYSTECTOMY HX 06/29/2007 LAP SLEEVE GASTRECTOMY 2017 NEUROPLASTY AND/TRANSPOS MEDIAN NRV CARPAL TUNNE 2008;2009 bilateral S PROBE PERC LUMBAR DISCECTOMY 2011; 2012 L4, L5 and L5 S1 SPLENECTOMY TOTAL SEPARATE PROCEDURE 06/29/2014 FAMILY HISTORY Problem Relation Age of Onset Thyroid Mother hypothyrodism Obesity Mother Obesity Father Diabetes Father HTN; Lymphoma Obesity Sister other (Migraines [Other]) Sister Diabetes Paternal Grandmother Stroke Paternal Grandfather None Daughter None Son Diabetes Paternal Uncle Social History Tobacco Use Smoking status: Former Packs/day: 0.50 Years: 5.00 Total pack years: 2.50 Types: Cigarettes Quit date: 12/27/2013 Years since quittin.0 Smokeless tobacco: Never Vaping Use Vaping Use: Never used Substance Use Topics Alcohol use: Not Currently Comment: None since 2012 Drug use: Never Current Outpatient Medications Medication Sig ARIPiprazole (ABILIFY) 10 mg tablet Take 10 mg by mouth daily at bedtime. busPIRone (BUSPAR) 15 mg tablet Take 15 mg by mouth twice daily. famotidine (PEPCID) 20 mg tablet Take 20 mg by mouth twice daily as needed. lamoTRIgine (LAMICTAL) 100 mg tablet Take 100 mg by mouth every morning. prazosin (MINIPRESS) 1 mg cap Take 1 mg by mouth daily at bedtime. propranolol (INDERAL) 60 mg tablet Take 60 mg by mouth twice daily. hydrOXYzine pamoate (VISTARIL) 50 mg capsule Take 50 mg by mouth twice daily. sucralfate (CARAFATE) 1 gram tablet Take 1 g by mouth four times daily. DULoxetine (CYMBALTA) 60 mg capsule Take 60 mg by mouth once daily. pantoprazole DR (PROTONIX) 40 mg tablet Take 40 mg by mouth once daily. loratadine (CLARITIN) 10 mg tablet Take 10 mg by mouth once daily. ondansetron orally disintegrating (ZOFRAN ODT) 4 mg disintegrating tablet Take 1 tablet by mouth every 8 hours as needed. acetaminophen (TYLENOL) 325 mg tablet Take 650 mg by mouth as needed. dicyclomine (BENTYL) 20 mg tablet Take 20 mg by mouth every 6 hours. fluticasone (FLONASE) 50 mcg/actuation nasal spray Use 2 Sprays in each nostril once daily. cetirizine (ZYRTEC) 10 mg tablet Take 10 mg by mouth once daily. topiramate (TOPAMAX) 100 mg tablet Take 100 mg by mouth once daily. No current facility-administered medications for this visit. ALLERGIES Allergen Reactions Adhes. Tsds-Xikt-Gb* Rash Adhesive Tape-Silic* Rash Augmentin [Amoxicil* Diarrhea Keflex [Cephalexin] Rash, Itching Penicillins Hives Ultram [Tramadol Hc* Itching VISIT NOTE This patient was seen in clinic today to obtain informed consent, to discuss the details of their upcoming operation including the appropriate expectations for perioperative and postoperative care. In addition, preoperative and postoperative relevant prescriptions were provided and explained during this clinic visit. Based on co morbidities, age and gender, DVT risk is elevated. ERAS protocol discussed. Narcotics sparing postop recovery discussed. The consent discussion included the risks, benefits and anticipated outcomes of the procedure, the risks and benefits of the alternatives to the procedure, and the roles and tasks of the personnel to be involved. Patient is scheduled for laparoscopic possible open second stage BPD/DS, possible liver biopsy, and intraoperative EGD. I have discussed the risks of surgery including infection, bleeding including injury to the spleen, the mesenteric blood vessels, conversion in the open, postoperative leak requiring stenting, reoperation, resection or repair, stric (more content not included)... [facility] 01-05-2023 Note HNO ID: [id number] Author: Pao Hodgson RN Service: ? Author Type: Registered Nurse Type: Progress Notes Filed: 01/30/2023 10:27 AM Note Text: Surgery date rescheduled to 03/17/2023. Pao Hodgson RN [facility] 01-05-2023 Miscellaneous Notes [facility] COORDINATION SURGERY APPROVAL CALL Received e-mail confirmation of insurance approval for bariatric surgery.Pre-operative call placed to the patient, this RN spoke with patient and agreed upon a surgery date of February 03 2023. Surgical episode request sent to [facility] surgery scheduling. 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 Creatinine level 0.81 Patient instructed to start pre-op 800 calorie total protein liquid diet daily beginning 2 weeks prior to surgery. - Stop all ASA and NSAID products, [place] 3 fish oil, herbal products such as ginko etc. Stop vitamins EXCEPT B COMPLEX- take this up to the day before surgery - Medication List reviewed and patient will contact prescribing physician regarding use of medications while on pre-operative diet. - Patient denies use of estrogen products . Talk with your prescribing MD if you take the following - should be monitored closely during the preoperative liquid diet with most held at the start of the diet given the . ALL of these medications should AT LEAST be held the day prior to surgery. Actos Amaryl Glipizide Glucophage Metformin Anti-obesity medications - stop 1 week before surgery Phentermine Qsymia Contrave Vyvanse Diethylproprion Phendimetrazine Saxenda Wegovy SGLT2 inhibitors should be stopped 3-4 days before surgery - avoid using during the first weeks following bariatric surgery because of the risk of dehydration, Jardiance Farxiga Invokana Sleep apnea requiring treatment? Yes, Patient tolerating C-PAP and advised to bring C-PAP mask and tubing DOS. If you have been diagnosed with moderate/severe sleep apnea you must wear CPAP/BIPAP a minimum of 4 hours nightly 2 weeks before surgery,. It is very important to treat TONEY pre op as well as continuing to use the CPAP post operatively- Do not stop using the machine without prior testing. Patient will require FMLA forms to be completed? Yes, Pt instructed to fax FMLA forms to [phone] and allow 7-10 days for completion. - Deandra video assigned. - All questions and concerns addressed and patient verbalized understanding. - Patient case reviewed. All nutrition appointments completed, psychology clearance obtained, surgeon visit and procedure type verified, medical optimization obtained and all testing complete. 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 Yes, patient has Con ABO. Pao Hodgson RN documented in this encounter [facility] 12-15-2022 Note HNO ID: [id number] Author: Mireille Dao RD Service: ? Author Type: Registered Dietitian Type: Progress Notes Filed: 12/15/2022 3:32 PM Note Text: [facility] Nutrition Therapy: Virtual Consult - Re-assessment I have communicated my name and active licensure. The patient's identity and physical location were verified at the time of this visit. Either the patient or their legal asset protection representative has been informed of the risks and benefits of -- and alternatives to -- treatment through a remote evaluation and consents to proceed with the evaluation remotely. Nutrition Diagnosis: Overweight/obesity, related to, food/nutrition - related knowledge deficit, as evidenced by BMI above normative standard for age and gender RECOMMENDED MALNUTRITION DIAGNOSIS: NO MALNUTRITION IDENTIFIED NUTRITION CARE PLAN: Nutrition Intervention 12/15/2022: Modify type and amount of food at meals and snacks 1. Eat consistently with 3 meals per day. Drink a protein shake to avoid skipping meals. 2. Consume 77 grams of protein per day. After surgery protein needs increase to 96-128 grams per day. 3. Aim for 20-30 grams of protein per meal and include high protein snacks as needed to meet daily protein goal. 4. Have balanced meals that include 4 oz lean protein, half plate of vegetables, and 1/2-1 cup of whole grain starch. 5. Exercise: Strive for daily activity you enjoy! Include strength training and cardio with a goal of 30 minutes 5-6 days per week. 6. Drink at least 64 fl oz per day of water or other beverages that are caffeine and sugar free. Avoid carbonated and high sugar beverages. Practice food and beverage by 30 minutes. 7. Starting 2-3 weeks after surgery. Take daily: Complete multivitamin with 15 mg of Zinc AND 1-2 mg of Copper - Vitamin B-complex with 75-100 mg of Thiamin - Iron 45-60 mg - Calcium 1,800-2,000 mg - Vitamin B12 500 mg - Vitamin A 10,000 international unit(s) - Vitamin D3 3,000 international unit(s) - Vitamin E 15 mg, Vitamin K 300 mcg OR choose ONE of the combined bariatric vitamin/mineral supplements: - 3 per day Bariatric Fusion ADEK Complete Capsules AND 1800- 2400 mg per day Calcium Citrate https://www.bariatricfusion.com/ collections/adek/products/bariat libby-multivi dgrsf-ejal-wkui-hwnnexc-gujt-isb n OR - 2 per day Bariatric Advantage High ADEK Multivitamin Capsules AND 3277-5769 mg per day Calcium Citrate AND 45-60 mg per day Iron https://www.bariatricadvantage.c om/lvgj-idry-xzgetcfmtwep-capsul es OR - 2 per day Celebrate Multi-ADEK with Iron Chewable Tablets AND 9206-7666 mg per day Calcium Citrate https://[employer].evolso/pr oducts/xetkn-dfhi-kbdi-iron?vari ywc=[id number] OR -1 per day ProCare DS/LEIDA Bariatric Multivitamin with 60 mg Iron AND 8483-0335 mg per day Calcium Citrate https://Talentory.com/procare-h qiizu-jpox-rnroz-bariatric-multi vitamin-cap lxnc-vg-wifz/?sku=Vit-BariCapsDS -LEIDA-30ct S-LEIDA-30ct Nutrition Monitoring AND Evaluation: Weight loss of 1-2 pounds per week and adherence to above recommendations Need for Follow up: 3 weeks pre-op PROGRESS: Interval History: Patient presents for follow up nutrition consult in preparation for bariatric surgery, interested in conversion of LSG to DS. Patient cleared for surgery by nutrition at previous appointment, clearance remains. Height and weight discussed today. Patient has experienced 23 lb weight loss since previous reported weight 6 months ago. Diet recall reveals consistent eating pattern with 3 meals per day. Attention to protein intake at meals and snacks. Fluids are sufficient with water as primary beverage. She is fluids and food intake. Exercise has been more limited recently since ankle injury several days ago. Was previously walking consistently. Supplements reviewed for post-op. Nutrition Intervention 07/09/22 1. Starting ~3 weeks after surgery take daily: Complete Multivitamin with 15 mg of Zinc and 1-2 mg of Copper, Vitamin B-complex with 75-100 mg of Thiamin, Iron 45-60 mg, Calcium 1,800-2,000 mg, Vitamin B12 500 mg, Vitamin A 10,000 IU, Vitamin D3 3,000 IU, Vitamin E 15 mg, Vitamin K 300 mcg OR combined bariatric vitamin/mineral supplements: - Bariatric Fusion ADEK Complete Capsule (3x per day) AND 1866-8245 mg calcium citrate https://www.bariatricfusion.com/ collections/adek/products/bariat libby-multivi oikfa-qtgn-unzy-mnntmey-hjbu-vwe n OR - Bariatric Advantage High ADEK Chewable Multivitamin (2x per day) AND 8189-6268 mg calcium citrate https://www.bariatricadvantage.c om/lgyd-zcom-sghwiolqvpnt-capsul es OR -Celebrate multi-ADEK chewable (3x per day) AND 5100-3988 mg calcium citrate AND 1 chewable Iron 45-60 mg https://celebratevitamins.com/pr oducts/multi-adek?cbesvjk=[id number] [id number] OR -ProCare DS/LEIDA Bariatric multivitamin with 60 mg Iron (1x per day) AND 8751-9893 mg calcium citrate daily https://procaren (more content not included)... [facility] 12-15-2022 Instructions Mireille Dao, RD - 12/15/2022 3:28 PM EDT 1. Eat consistently with 3 meals per day. Drink a protein shake to avoid skipping meals. 2. Consume 77 grams of protein per day. After surgery protein needs increase to 96-128 grams per day. 3. Aim for 20-30 grams of protein per meal and include high protein snacks as needed to meet daily protein goal. 4. Have balanced meals that include 4 oz lean protein, half plate of vegetables, and 1/2-1 cup of whole grain starch. 5. Exercise: Strive for daily activity you enjoy! Include strength training and cardio with a goal of 30 minutes 5-6 days per week. 6. Drink at least 64 fl oz per day of water or other beverages that are caffeine and sugar free. Avoid carbonated and high sugar beverages. Practice food and beverage by 30 minutes. 7. Starting 2-3 weeks after surgery. Take daily: Complete multivitamin with 15 mg of Zinc & 1-2 mg of Copper - Vitamin B-complex with 75-100 mg of Thiamin - Iron 45-60 mg - Calcium 1,800-2,000 mg - Vitamin B12 500 mg - Vitamin A 10,000 international unit(s) - Vitamin D3 3,000 international unit(s) - Vitamin E 15 mg, Vitamin K 300 mcg OR choose ONE of the combined bariatric vitamin/mineral supplements: - 3 per day Bariatric Fusion ADEK Complete Capsules AND 1800- 2400 mg per day Calcium Citrate https://www.bariatricfusion.com/ collections/adek/products/bariat tql-spplqznupcaz-yeqc-adek-vitam zv-xiel-pjam OR - 2 per day Bariatric Advantage High ADEK Multivitamin Capsules AND 2438-3455 mg per day Calcium Citrate AND 45-60 mg per day Iron https://www.bariatricadvantage.c om/xxwa-gkfp-pjlyaglolmsu-capsul es OR - 2 per day Celebrate Multi-ADEK with Iron Chewable Tablets AND 3163-8008 mg per day Calcium Citrate https://[employer].evolso/pr oducts/pryxw-gkru-xpbe-iron?vari dnk=[id number] OR -1 per day ProCare DS/LEIDA Bariatric Multivitamin with 60 mg Iron AND 7822-8795 mg per day Calcium Citrate https://Symptom.ly.evolso/procare-h cainm-mfqw-avbud-bariatric-multi cbyzlyf-lxkakmf-yh-leida/?sku=Vit -BevpLeobQJ-ZVFV-86om S-LEIDA-30ct documented in this encounter [facility] 12-15-2022 History of Presen t illness Narrative [facility] Nutrition Therapy: Virtual Consult - Re-assessment I have communicated my name and active licensure. The patient's identity and physical location were verified at the time of this visit. Either the patient or their legal asset protection representative has been informed of the risks and benefits of -- and alternatives to -- treatment through a remote evaluation and consents to proceed with the evaluation remotely. Nutrition Diagnosis: Overweight/obesity, related to, food/nutrition - related knowledge deficit, as evidenced by BMI above normative standard for age and gender RECOMMENDED MALNUTRITION DIAGNOSIS: NO MALNUTRITION IDENTIFIED NUTRITION CARE PLAN: Nutrition Intervention 12/15/2022: Modify type and amount of food at meals and snacks 1. Eat consistently with 3 meals per day. Drink a protein shake to avoid skipping meals. 2. Consume 77 grams of protein per day. After surgery protein needs increase to 96-128 grams per day. 3. Aim for 20-30 grams of protein per meal and include high protein snacks as needed to meet daily protein goal. 4. Have balanced meals that include 4 oz lean protein, half plate of vegetables, and 1/2-1 cup of whole grain starch. 5. Exercise: Strive for daily activity you enjoy! Include strength training and cardio with a goal of 30 minutes 5-6 days per week. 6. Drink at least 64 fl oz per day of water or other beverages that are caffeine and sugar free. Avoid carbonated and high sugar beverages. Practice food and beverage by 30 minutes. 7. Starting 2-3 weeks after surgery. Take daily: Complete multivitamin with 15 mg of Zinc & 1-2 mg of Copper - Vitamin B-complex with 75-100 mg of Thiamin - Iron 45-60 mg - Calcium 1,800-2,000 mg - Vitamin B12 500 mg - Vitamin A 10,000 international unit(s) - Vitamin D3 3,000 international unit(s) - Vitamin E 15 mg, Vitamin K 300 mcg OR choose ONE of the combined bariatric vitamin/mineral supplements: - 3 per day Bariatric Fusion ADEK Complete Capsules AND 1800- 2400 mg per day Calcium Citrate https://www.bariatricfusion.com/ collections/adek/products/bariat uwj-slnngleevhyo-dqan-adek-vitam le-lmzk-wimy OR - 2 per day Bariatric Advantage High ADEK Multivitamin Capsules AND 0059-5400 mg per day Calcium Citrate AND 45-60 mg per day Iron https://www.bariatricadvantage.c om/hikw-ksxl-glevkdgqmhhp-capsul es OR - 2 per day Celebrate Multi-ADEK with Iron Chewable Tablets AND 5175-4509 mg per day Calcium Citrate https://[employer].evolso/pr oducts/djmzg-fldu-rmhi-iron?vari xei=[id number] OR -1 per day ProCare DS/LEIDA Bariatric Multivitamin with 60 mg Iron AND 3563-1184 mg per day Calcium Citrate https://Talentory.com/procare-h cgajw-klzr-chczb-bariatric-multi xndpcah-zilcyqf-ys-leida/?sku=Vit -OpmeFhboWU-DCAI-27ir S-LEIDA-30ct Nutrition Monitoring & Evaluation: Weight loss of 1-2 pounds per week and adherence to above recommendations Need for Follow up: 3 weeks pre-op PROGRESS: Interval History: Patient presents for follow up nutrition consult in preparation for bariatric surgery, interested in conversion of LSG to DS. Patient cleared for surgery by nutrition at previous appointment, clearance remains. Height and weight discussed today. Patient has experienced 23 lb weight loss since previous reported weight 6 months ago. Diet recall reveals consistent eating pattern with 3 meals per day. Attention to protein intake at meals and snacks. Fluids are sufficient with water as primary beverage. She is fluids and food intake. Exercise has been more limited recently since ankle injury several days ago. Was previously walking consistently. Supplements reviewed for post-op. Nutrition Intervention 07/09/22 1. Starting ~3 weeks after surgery take daily: Complete Multivitamin with 15 mg of Zinc and 1-2 mg of Copper, Vitamin B-complex with 75-100 mg of Thiamin, Iron 45-60 mg, Calcium 1,800-2,000 mg, Vitamin B12 500 mg, Vitamin A 10,000 IU, Vitamin D3 3,000 IU, Vitamin E 15 mg, Vitamin K 300 mcg OR combined bariatric vitamin/mineral supplements: - Bariatric Fusion ADEK Complete Capsule (3x per day) AND 0390-7693 mg calcium citrate https://www.bariatricfusion.com/ collections/adek/products/bariat joq-rxmmpbydzcxh-emot-adek-vitam bs-nuas-uwvz OR - Bariatric Advantage High ADEK Chewable Multivitamin (2x per day) AND 7549-3035 mg calcium citrate https://www.bariatricadvantage.c om/qgwy-ezia-gwrthliswzan-capsul es OR -Celebrate multi-ADEK chewable (3x per day) AND 2992-9453 mg calcium citrate AND 1 chewable Iron 45-60 mg https://celebrateExeliss.com/pr oducts/multi-adek?lfkcojy=[id number] OR -ProCare DS/LEIDA Bariatric multivitamin with 60 mg Iron (1x per day) AND 8661-3226 mg calcium citrate daily https://Talentory.com/procare-h wtdae-zblq-vvqbw-bariatric-multi epbkhre-dmnxmzm-kf-leida/?sku=Vit -KaayWkegJB-FKHN-12wl 2. Protein goal: 77 grams protein/day. Protein needs increase to 96-128 grams per day after duodenal switch procedure. 3. Fluid goal: 64 fl oz of water per day (no calories, no caffeine, no carbonation, no alcohol) 4. Exercise goal: move as much as possible with walking, taking stairs, and weight bearing activity 5. Practice mindful eating habits: take small portions, eat slowly, chew thoroughly 6. Start the full liquid diet 3 weeks prior to surgery: - Use only the approved protein shakes: 4.5 bottles/day Slim Fast Advanced Nutrition OR 5.5 packets/day Light Start [place]row Breakfast Essentials mixed with 1% or skim milk OR 5 bottles/day Atkins Protein Shake (15 gm protein version) OR 4.5 bottles/day Boost Glucose Control OR 4.5 bottles/day OWYN (20 gm protein and 180 calories version) - Continue drinking a minimum of 64 fl oz of water per day - No solid food. May have sugar free popsicle and sugar free jello - During the 2 week liquid diet before surgery include a daily Super B-Complex vitamin (75-100 mg of Thiamin) 7. Advance diet as tolerated after surgery. 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 Resting Metabolic Rate: 2401 Malnutrition Screening Significant unintentional weight loss? No Eating less than 75% of usual intake for more than 2 weeks? No Potential Signs of Inflammation: no identifiable sources Nutritional status: Education Materials Provided: None this visit READINESS TO LEARN Cognitive ability: Alert and oriented Motivation to learn: Interested Family support: Unable to assess - Family not present Instruction provided to: Patient Patient learns best by: Multiple Methods Factors affecting learning: None Physical limitations affecting learning: None Likelihood of Adherence: Moderate Referred/Supervised by: Kalee BEVERLY Billing Type: Re-assess/15 min 1 unit SIGNATURE: Mireille Dao RD PATIENT NAME: Susi Ortiz DATE: 12/15/2022 TIME: 3:08 PM PAGER: documented in this encounter [facility] 12-13-2022 Evaluation note Encounter Date Diagnosis Assessment Notes Nov, Acute left ankle pain (ICD-10 - M25.572) Nov, Sprain of left ankle, unspecified ligament, initial encounter (ICD-10 - S93.402A) X-ray completed to rule out fracture given severity of pain, difficulty weightbearing. X-rays negative for any acute fracture or dislocation. Discussed with patient pain is likely related to sprain of ankle. Left ankle wrapped with Trent wrap for support. Advised may wear Trent wrap during the day. Elevation and ice encouraged over the next 48 hours. May alternate ibuprofen and Tylenol for discomfort. May take up to 800 mg of ibuprofen 3 times a day. Discussed should be consistently improving over the next week. Discussed with patient she may use crutches temporarily if she is having trouble weightbearing, patient states she has crutches at home. Discussed if she is not able to bear weight on ankle over the next week with improving symptoms, should follow-up with PCP for recheck at that time. Patient verbalized understanding treatment plan. [employer] Other 06-07-2023 NoteHNO ID: [id number] Author: Heidy Dsouza RN Service: ? Author Type: ? Type: Progress Notes Filed: 12/03/2022 2:02 PM Note Text: 01/04/2023 NOT ACTUAL DATE FOR SURGERY This is a phantom date of surgery to gain insurance approval before scheduling actual date of surgery. The surgeon's office will contact patient to select ACTUAL surgery date once insurance authorization received. A prior authorization from insurance necessary before selecting actual surgery date. Heidy Dsouza RN Boiler House Operator for Cony Soler MD [facility] History of Present illness Narrative* Heidy Dsouza RN - 12/03/2022 1:57 PM EDT 01/04/2023 NOT ACTUAL DATE FOR SURGERY This is a phantom date of surgery to gain insurance approval before scheduling actual date of surgery. The surgeon's office will contact patient to select ACTUAL surgery date once insurance authorization received. A prior authorization from insurance necessary before selecting actual surgery date. Heidy Dsouza RN Boiler House Operator for Cony Soler MD Covering for Joe Granda MD [facility] NoteEXAMINATION: XR CHEST 2 V HISTORY: Abnormal weight gain ; presurgical evaluation COMPARISON: No relevant comparison available. FINDINGS: LUNGS: No significant pulmonary parenchymal abnormalities. VASCULATURE: No increased pulmonary vasculature. PLEURA: No pneumothorax, effusion, or pleural thickening. CARDIAC: No cardiomegaly or cardiac silhouette abnormality. MEDIASTINUM: No visible mass or adenopathy. BONES: No fracture or visible bone lesion. OTHER: Negative. IMPRESSION: 1. No acute cardiopulmonary process. Electronically authenticated by: DARREL NICHOLS Date: 2022-08-12 15:04[facility]12-07-2022 Instructions* Patient Instructions* Amina Nieto MD - 06/04/2022 6:53 PM EST INSTRUCTIONS: 1) Please contact me (Dr. Nieto) if you have not heard about your test results within a few days after you had them done. Thank you: Contact information: [facility]/Attention: Dr. Nieto [address] [place] [address] 2) Please check with your insurance company regarding cost/coverage of any tests ordered prior to having them completed. Edinson Ortiz , Thank you for completing your visit today and we welcome you to the surgical program. We are sure that you will still have some additional questions and encourage you to reach out to your care provider via [employer] OR your Patient Navigator. Patient Navigators are assigned alphabetically by patient last name. The contact information for each Navigator is listed below. Last names A-E= KatiaMike Last names F-L = JoannaMike Last names M-R= AlmaMike Last names S-Z= Jesusitaquirino Additionally, you may find many of the answers to your questions in our Guide To Surgery book. Thisbook includes step by step instructions for completing your surgical path and resources for the surgical procedures, medical information, and nutrition/diet information. We would like you to review this book as your providers will refer to information contained in it. For now, please follow the link below to read online version of the book, but next time you have a FACE to FACE visit with one of your providers, please feel free to ask for a hard copy. [email or web address] Once you complete all of the requirements (testing, consultations, diet, etc) from each provider, please call [phone] and select option #5 to initiate insurance approval. Please note scheduling information It is important to keep track of your scheduled appointments to ensure successful completion of oursurgical program. Any missed appointments can further delay your pre-surgical work-up. [facility] does offer an opt-in option for getting text message appointment reminders. Please follow the link below if you would like to opt into this service. [email or web address] As part of your surgical work up, SOME or ALL of the following tests may have been ordered. It willbe your responsibility to schedule and complete these tests in order to proceed with your bariatricsurgery. Please review the following instructions on how to get your testing scheduled. -EKG, Chest X-ray, Ultrasound- An appointment is needed for each of these tests. You may call your local [facility] to get an appointment. - Lab work- No appointment is needed for this, you may complete at any [facility] Laboratory.These are usually fasting labs, please be sure to fast (only water permitted) for 10-12 hours priorto the test. -Sleep Study- Please call [phone] or [phone] to get this appointment set up. -Sleep Medicine Consult- (Only needed if sleep study confirms sleep apnea) Please call [phone] to schedule an appointment. Any testing that is completed outside of [facility] will need faxed to [phone]. We look forward to working with you on this journey, Amina Nieto MD documented [facility] History of Present illness Narrative* Amina Nieto MD - 06/04/2022 11:15 AM EST This Team Access Model visit is a virtual encounter. It required patient- provider interaction for the medical decision making as documented below. Both audio and visual components utilized for this visit. Consent from patient received to conduct visit using telehealth. This visit was performed virtuallydue to the COVID-19 pandemic as an effort to protect patients and minimize exposure. CC/HPI: 36 year old lady presents for medical evaluation prior to anticipated medical/surgical treatment ofobesity. The patient is interested in surgical weight loss/revision. Goal/motivation for weight loss? Health/QOL/GERD -04/16/2022 OV BMI/[place] Weight gain history: Age of onset: whole life; then had sleeve and lost a lot, but then life got in the way and started gaining weight again Inciting/contributing factors to weight gain: father got sick w cancer and she was taking care of him What gets in the way of your weight loss? Minimum weight: 250 lbs Maximum weight: 408 lbs What is your weight loss goal? Previous weight loss attempts: s/p sleeve surgery; WW; has tried keto; Atkins; Adipex; portion control, watching what and how much she eats Medications (prescription or non-prescription) for weight loss? Adipex What has worked the best so far for you in the past? History of Eating disorders? (bulimia, anorexia, binge eating?) Family history of obesity? Diet: -B: sausage -L: oatmeal -D: beef broth noodles -snacks: none -beverages: advised to make water her main beverage-avoid carbonated beverages, no pop/soda; caloric/sugary beverages Exercise: walks as much as she can until her back starts hurting Functional Capacity: -Walk 4 blocks on level ground without symptoms? -Climb 2 flights of stairs without symptoms? Can walk up a flight of stairs -heavy housework without symptoms? Can carry in groceries/do laundry Previous stress testing/cardiac testing and why? -no recent testing Sleep apnea screen: her last sleep study was longer than a few years ago; not currently wearing a cpap (she moved after she got it and lost her cpap machine)- used to wear the cpap *S-snore? yes *T-feel tired, fatigued, daytime sleepiness? yes *O-observed patient stop breathing during sleep? yes P-does patient have, or being treated for high blood pressure? *B-is BMI >35? Yes A-Age >50 no N-Neck circumference >15.75 inches? ? G-Male gender? 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 busPIRone (BUSPAR) 15 mg tablet Take 15 mg by mouth twice daily. famotidine (PEPCID) 20 mg tablet Take 20 mg by mouth twice daily as needed. lamoTRIgine (LAMICTAL) 100 mg tablet Take 100 mg by mouth every morning. prazosin (MINIPRESS) 1 mg cap Take 1 mg by mouth daily at bedtime. propranolol (INDERAL) 60 mg tablet Take 60 mg by mouth twice daily. hydrOXYzine pamoate (VISTARIL) 50 mg capsule Take 50 mg by mouth twice daily. sucralfate (CARAFATE) 1 gram tablet Take 1 g by mouth four times daily. DULoxetine (CYMBALTA) 60 mg capsule Take 60 mg by mouth once daily. pantoprazole DR (PROTONIX) 40 mg tablet Take 40 mg by mouth once daily. loratadine (CLARITIN) 10 mg tablet Take 10 mg by mouth once daily. ondansetron orally disintegrating (ZOFRAN ODT) 4 mg disintegrating tablet Take 1 tablet by mouth every 8 hours as needed. acetaminophen (TYLENOL) 325 mg tablet Take 650 mg by mouth as needed. dicyclomine (BENTYL) 20 mg tablet Take 20 mg by mouth every 6 hours. fluticasone (FLONASE) 50 mcg/actuation nasal spray Use 2 Sprays in each nostril once daily. cetirizine (ZYRTEC) 10 mg tablet Take 10 mg by mouth once daily. topiramate (TOPAMAX) 100 mg tablet Take 100 mg by mouth once daily. PAST MEDICAL HISTORY Diagnosis Date Bipolar disorder (HCC) DDD (degenerative disc disease), lumbar Depression Eczema GERD (gastroesophageal reflux disease) Migraine PAST SURGICAL HISTORY Procedure Laterality Date CHOLECYSTECTOMY HX 06/29/2007 LAP SLEEVE GASTRECTOMY 2017 NEUROPLASTY &/TRANSPOS MEDIAN NRV CARPAL TUNNE 2008;2009 bilateral S PROBE PERC LUMBAR DISCECTOMY 2011; 2012 L4, L5 and L5 S1 SPLENECTOMY TOTAL SEPARATE PROCEDURE 06/29/2014 Review of patient's allergies indicates: Trent Inhibitors Cough Sulfa (Sulfonamide * Unknown Ultram (Tramadol Hc* Hives PHYSICAL EXAMINATION: Wt (!) 185.1 kg (408 lb) LMP 09/24/2015 BMI 72.27 kg/m General: alert and appropriate, in no distress, well-hydrated, well nourished, happy, smiling, interactive, and pleasant lady Skin: no rash noted Head: normocephalic, no abnormality or lesion noted Eyes: no injection and visual acuity is grossly normal Respiratory: breathing non-labored REVIEW OF SYSTEMS General: As per HPI; no recent fevers/chills/fatigue, or recent hospitalizations. Weight and appetite stable. No recent travel, medication or diet changes. Overall health generally stable. *overall stable HEENT: No history of, or new or out-of-the ordinary, vision, hearing or other ENT problems *no hearing or vision problems CV: No history of CAD, CVA or other cardiovascular disease or conditions. No new or out of the ordinary chest pain/palpitations/NELSON/orthopnea/PND/claudication/other cardiac, valvular or vascular issues *no h/o LA, CHF, CAD, no cp/palpitations Respiratory: Denies any known h/o lung disease, disorders or conditions. No new or out of the ordinary SOB/cough/other respiratory disease *no asthma/cough/sob GI: Denies any known h/o stomach, liver, pancreas, intestinal or colonic disease, Disorders or conditions. No odyno/dysphagia/abdominal pain/N/V/diarrhea/constipation/bloody stools or other GI issues *+GERD; no liver/colon or intestine; s/p GB surgery : B)women: LMP?//rash/discharge/pelvic pain/menstrual problems C) either: No known h/o any chronic kidney; urinary or bladder disease, disorders or conditions; Denies any renal stones/dysuria/hematuria/urgency/polyuria/other issues/concerns *no h/o CKD or bladder problems Heme/onc: No known h/o any bleeding or clotting disorder, PE/DVT/anemia, or other blood disorder orcondition No h/o cancer/bleeding or clotting problems/unusual bruising or other hematologic/oncologic issues *no h/o cancer or Pe/DVT; has had problems w anemia Neuro: No new or unusual CHRISTIAN/weakness/dizziness. No paresthesias/temperature sensation changes or disturbances/weakness/h/o CVA or seizures or other neurologic problems *no h/o CVA/sz or other neuro Endo: No known thryoid or DM or other endocrine or metabolic disease, disorders or conditions *no h/o Dm Or thyroid or other endo Musk/Rheum: Denies any h/o disabling or chronic back or other pain; no h/o gout, SLE, RA or other types of arthritis. No new/unusual arthralgias, bone, muscle or joint problems, h/o autoimmune disease, gout or arthritis Autoimmune/Allergy: Skin: No rashes/pruritis/color changes. No other skin problems or issues. Psych: No h/o anxiety/depression or other psychiatric problems Other providers: -PCP -OB-gyne ASSESSMENT: Reviewed principles of energy metabolism, caloric intake and expenditure, and rationale for treatment program. Also reinforced need for reduced calorie, low fat diet and increased physical Activity. 1)Morbid obesity May be considered at acceptable risk to proceed with bariatric surgery if the following conditions met: baseline ECG normal, or stable/unchanged compared to previous examinations. No further noninvasive cardiac testing needed IF the patient has no intermediate clinical risk factors, (IDDM, renal failure, CHF, CAD, and CVA) and has a normal or adequate functional capacity, and depending on the resultsof tests, consults (and prior records/test results if requested) -she had labs done at her local facility-[facility]; check remaining presurgical labs, CXR, EKG (had recent CT abd); will try to get the labs from [place]; Will mail her orders so she can get them done locally and try to obtain recent labs from [facility] 2)Sleep disordered breathing: external sleep study scanned in [facility]-+TONEY -check sleep study and refer to Sleep medicine-she will try to have these done locally. Amina Nieto MD I spent a total of 45 minutes on the date of the service which included preparing to see the patient, lgco-yw-yhys patient care, completing clinical documentation, obtaining and/or reviewing separately obtained history, counseling and educating the patient/family/caregiver, ordering medications, keli ts, or procedures, and care coordination (not separately reported). documented in this encounterC[facility]11[facility] Miscellaneous Notes* Telephone Encounter - Pao Hodgson RN - 05/14/2022 4:20 PM EST I spoke to patient and reviewed that Dr. Granda would like her to complete the process to be cleared by bariatric medicine, nutrition and psychology. I advised that with the change to the duodenal switch we want to make sure she is prepared for the changes required for a duodenal switch. Patient stated understanding and had no further questions. Pao Hodgson RN * Telephone Encounter - Pao Hodgson RN - 05/09/2022 4:[address] Granda is supportive of the change to duodenal switch and spoke to patient. Patient called to see what additional appointments she will need to be cleared for surgery. I advised that I had notified the navigation team and was waiting to hear back. I advised that I will reach out again and update her once I have additional information. Pao Hodgson RN * Telephone Encounter - Pao Hodgson RN - 05/01/2022 2:56 PM EDT Patient states has done research and wanted to know about duodenal switch instead of the current planned surgery. She states she is aware of the risk for malabsorption and diarrhea but feels it may be a better option for her for weight loss pen[facility]. Pao Hodgson RN * Telephone Encounter - Jessica Rodriguez - 05/01/2022 1:55 PM EDT Pt has questions regarding upcoming surgery PH: [phone] documented in this encounterC[facility] Miscellaneous Notes* Telephone Encounter - Pao Hodgson RN - 05/02/2022 9:59 AM EDT I spoke to patient to confirm that she understands she will have to complete the bariatric program for clearance and it is unlikely we will be able to keep her current surgery date. Patient stated understanding and states she is willing to delay surgery to make sure she does the right procedure forher needs. [facility] navigator notified. Pao Hodgson RN * Telephone Encounter - Joe Granda MD - 05/02/2022 9:20 AM EDT AMBULATORY TELEPHONE VISIT Susi Naqvi Angel has consented to this telephone encounter. Persons Present: patient Chief Complaint/Reason: discuss revision options. HPI: patient researching revision options. Wants to do DS for more weight loss. Understands it willlikely not help her reflux. Data Reviewed: EGD, UGI, CT Assessment: (E66.01, Z68.44) Morbid obesity with body mass index of 60.0-69.9 in adult (HCC) (primary encounterdiagnosis) Plan: Will plan for conversion to biliopancreatic diversion with duodenal switch. Joe Granda MD documented in this encounterC[facility]10-21-2022 Miscellaneous Notes* Telephone Encounter - Pao Hodgson RN - 04/18/2022 1:34 PM EDT [facility] SPECIAL[facility] CARE COORDINATION SURGERY SCHEDULING CALL Received e-mail confirmation of insurance approval for bariatric surgery.Pre- operative call placed to the patient, this RN spoke with patient and agreed upon a surgery date of June 10 2022. Surgical episode request sent to [facility] surgery scheduling. Patient understands that the surgery type is partial gastrectomy with gastrojejunostomy . Creatinine level pending results Patient instructed to start pre-op 800 calorie total protein liquid diet daily beginning 2 weeks prior to surgery provided creatinine is in range. - Stop all ASA and NSAID products, [place] 3 fish oil, herbal products such as ginko etc. Stop vitamins EXCEPT B COMPLEX- take this up to the day before surgery - Medication List reviewed and patient will contact prescribing physician regarding use of prescribed while on pre-operative diet. - Patient denies use of estrogen products . Talk with your prescribing MD if you take the following - should be monitored closely during the preoperative liquid diet with most held at the start of the diet given the . ALL of these medications should AT LEAST be held the day prior to surgery. Actos Amaryl Glipizide Glucophage Metformin Anti-obesity medications - stop 1 week before surgery Phentermine Qsymia Contrave Vyvanse Diethylproprion Phendimetrazine Saxenda Wegovy SGLT2 inhibitors should be stopped 3-4 days before surgery - avoid using during the first weeks following bariatric surgery because of the risk of dehydration, Jardiance Farxiga Invokana - Patient tolerating C-PAP and advised to bring C-PAP mask and tubing DOS. - If you have been diagnosed with moderate/severe sleep apnea you must wear CPAP/BIPAP a minimum of4 hours nightly 2 weeks before surgery,. It is very important to treat TONEY pre op as well as continuing to use the CPAP post operatively- Do not stop using the machine without prior testing. - Pt instructed to fax [place] forms to [phone] and allow 7-10 days for completion. Deandra video assigned and Pt will view Drop video during pre-op nurse visit. All questions and concerns addressed and patient verbalized understanding. - Patient case reviewed. All nutrition appointments completed, psychology clearance obtained, surgeon visit and procedure type verified, medical optimization obtained and all testing complete. Con ABO No, to be ordered Pao Hodgson RN documented in this encounterC[facility]10-19-2022 History of Present illness Narrative* Joe Granda MD - 04/16/2022 2:20 PM EDT Assessment ESTABLISHED PATIENT Susi Ortiz is a 36 year old female with sleeve gastrectomy with prior leakage stent migration and stent removal. She is seeking partial gastrectomy with Jayy-en-Y gastrojejunostomy. From my perspective she is cleared for surgery as long as she is off of steroids for at least 4 weeks before surgery, and still need upper GI series. She understands that this is to minimize the risk of leakage, although this risk remains quite high. She also may be a plan ICU admission postoperatively. She also understands that because of her degree of obesity with a BMI of 70 I may not be able to obtain reach of her small intestine up to the upper stomach. In that case surgery may be stopped and she may be required to lose more weight before this can of conversion. She has had a hard time converting because she is been on the steroids that have caused her to gain weight or maintain herweight. A/ morbid obesity, history of sleeve, history of sleeve leak, reflux. PLAN/needs - off steroids >1 month - UGI series I spent a total of 35 minutes on the date of the service which included preparing to see the patient, [id number] patient care, and completing clinical documentation, test ordering, care coordination. Joe Granda MD documented in this encounterC[facility]10-19-2022 Evaluation note* Encounter Date Diagnosis Assessment Notes Treatment Notes Treatment Clinical Notes Mar, Calcaneal spur of right foot (ICD-10 - M77.31) Mar, Plantar fasciitis of right foot (ICD-10 - M72.2) Plantar fasciitis home care material was printed Drink plenty fluids, get plenty of rest. Take the prednisone as prescribed until gone. Ice your foot several times a day. _insert a gel pad into the heel of your right shoe. Follow-up with your family physician if no improvement in 3 to 5 days. Mar, Right foot pain (ICD-10 - M79.671) [facility] Other 10-14-2022 NotePROCEDURE: XR GI UPPER W KUB SINGLE CONTRAST, XR CINERADIOGRAPHY COMPARISON: None. HISTORY: Gastroesophageal reflux disease TECHNIQUE: An air contrast upper gastrointestinal series was performed in the usual manner. Standard level fluoroscopic mode of operation utilized. FINDINGS: ESOPHAGUS:Mild amount of gastroesophageal reflux with the patient in supine position. Normal clearance. No focal mass STOMACH: The gastric lumen appears small consistent with known gastric sleeve procedure. No extraluminal leak is observed. No focal intrinsic or extrinsic mass. DUODENUM:Normal. No ulceration or diverticulum. OTHER: Negative. IMPRESSION: Small amount of gastroesophageal reflux Electronically authenticated by: ESTELLA WHITEHEAD Date: 2022-04-11 10:21[facility]10-14-2022 NotePROCEDURE: XR GI UPPER W KUB SINGLE CONTRAST, XR CINERADIOGRAPHY COMPARISON: None. HISTORY: Gastroesophageal reflux disease TECHNIQUE: An air contrast upper gastrointestinal series was performed in the usual manner. Standard level fluoroscopic mode of operation utilized. FINDINGS: ESOPHAGUS:Mild amount of gastroesophageal reflux with the patient in supine position. Normal clearance. No focal mass STOMACH: The gastric lumen appears small consistent with known gastric sleeve procedure. No extraluminal leak is observed. No focal intrinsic or extrinsic mass. DUODENUM:Normal. No ulceration or diverticulum. OTHER: Negative. IMPRESSION: Small amount of gastroesophageal reflux Electronically authenticated by: ESTELLA WHITEHEAD Date: 2022-04-11 10:21[facility]09-29-2022 Evaluation note* Encounter Date Diagnosis Assessment Notes Treatment Notes Treatment Clinical Notes Feb, Gastroesophageal ref lux disease, esophagitis presence not specified (ICD-10 - K21.9) [facility] Other 09-12-2022 History of Present illness Narrative* Joe Granda MD - 03/10/2022 3:37 PM EDT VIRTUAL VISIT PROGRESS NOTE This is a virtual visit using testhub video visit. It required patient-provider interaction for themedical decision making as documented below. Susi Ortiz is a 36 year old female seen for follow up and workup. Has not obtained upperGI series that I had previously ordered. Gained weight that she attributes to recent steroid use due to sinus issues and back pain. PHYSICAL EXAMINATION: VIDEO EXAM: (if completed, performed via video enabled technology) GENERAL: alert and appropriate, in no distress, well-hydrated, well nourished, and happy, smiling, interactive ASSESSMENT: (Z90.3) History of sleeve gastrectomy (primary encounter diagnosis) PLAN: Obtain upper GI series Tentative plan for gastric bypass depending on results of above. Reviewed the importance of no steroids within 30 days of surgery if/when it is scheduled due to leak risk with steroids. I spent a total of 20 minutes on the date of the service which included preparing to see the patient, [id number] patient care, completing clinical documentation, obtaining and/or reviewing separately obtained history, and care coordination (not separately reported) Joe Granda MD documented in this encounterCleveland Clinic [facility]08-17-2022 NoteHNO ID: [id number] Author: EUSEBIA Solo Service: Radiology Author Type: Technologist Type: Progress Notes Filed: 02/12/2022 2:58 PM Note Text: Radiology Service Progress Note PATIENT NAME: Susi Ortiz DATE OF SERVICE: February 12, 2022 TIME: 2:58 PM PATIENT IDENTITY VERIFICATION COMPLETED USING TWO (2) IDENTIFIERS: Name and Date of confirmed by patient verbally. FALL SCREENING: Has the patient had 2 falls in the last year or 1 fall with injury or currently using an Ambulatory Assistive Device (Walker, Cane, Wheelchair, Crutches, etc.)? No PATIENT GENDER DATA: Female. status: : No status: NO. PATIENT RELEVANT IMPLANT DATA REVIEWED: Not Applicable RADIOLOGY DEPARTMENT: CT; Exam(s) Completed: Abdomen/Pelvis PERIPHERAL IV DATA: Site assessment: Clean,Dry and Intact, Site disposition Discontinued SIGNED BY: EUSEBIA SOLO February 12, 2022 2:58 PMAvon [id number] History of Present illness Narrative* EUSEBIA Solo - 02/12/2022 3:30 PM EDT Radiology Service Progress Note PATIENT NAME: Susi Ortiz DATE OF SERVICE: February 12, 2022 TIME: 2:58 PM PATIENT IDENTITY VERIFICATION COMPLETED USING TWO (2) IDENTIFIERS: Name and Date of confirmedby patient verbally. FALL SCREENING: Has the patient had 2 falls in the last year or 1 fall with injury or currently using an Ambulatory Assistive Device (Walker, Cane, Wheelchair, Crutches, etc.)? No PATIENT GENDER DATA: Female. status: : No status: NO. PATIENT RELEVANT IMPLANT DATA REVIEWED: Not Applicable RADIOLOGY DEPARTMENT: CT; Exam(s) Completed: Abdomen/Pelvis PERIPHERAL IV DATA: Site assessment: Clean,Dry and Intact, Site disposition Discontinued SIGNED BY: EUSEBIA SOLO February 12, 2022 2:58 PM documented in this encounterCleveland [facility]08-17-2022 Nurse Note* Elizabeth Stephens RN - 02/12/2022 3:30 PM EDT Radiology Service Progress Note DATE OF SERVICE: February 12, 2022 TIME: 2:30 PM PATIENT WEIGHT: 395LBS PATIENT IDENTITY VERIFICATION COMPLETED USING TWO (2) STANDARD IDENTIFIERS: Name and Date of confirmed by patient verbally and Name and Date of confirmed by identification band. FALL SCREENING: Has the patient had 2 falls in the last year or 1 fall with injury or currently using an Ambulatory Assistive Device (Walker, Cane, Wheelchair, Crutches, etc.)? No PATIENT GENDER DATA: Female. status: : No status: NO. ALLERGIES: Reviewed and unchanged CONTRAST ALLERGY: No EXAM: CT -CONTRAST INDUCED NEPHROPATHY RISK FACTORS: Not applicable CREATININE: Creatinine Date Value Ref Range Status 10/04/2015 0.71 0.70 - 1.40 mg/dL Final 09/06/2015 0.82 0.70 - 1.40 mg/dL Final Creatinine, Whole Blood (iSTAT) Date Value Ref Range Status 03/13/2015 0.80 0.70 - 1.40 mg/dL Final eGFR-All Other Races Date Value Ref Range Status 10/04/2015 >60 . Final Comment: eGFR (Estimated GFR) Units of measure: mL/min/1.73 meters squared eGFR is derived from the reexpressed MDRD Study equation using the following parameters: serum creatinine, age, gender and race. The creatinine assay has been calibrated to be traceable to IDMS. An eGFR <60 mL/min/1.73m2 for >3 months is consistent with chronic kidney disease. Refer to KDOQI guidelines for clinical interpretation. In patients with unstable renal function, e.g. those with acute kidney injury, the eGFR may not accurately reflect actual GFR. eGFR- Date Value Ref Range Status 10/04/2015 >60 Final P.O.C.T. RESULTS: N/A February 12, 2022 TREATMENT: N/A IV SITE: Ambulatory: A peripheral IV was started in the Left antecubital site with a Angio cath: 22gauge.difusics IV SITE APPEARANCE: Clean,Dry and Intact SIGNATURE: Elizabeth Stephens RN PATIENT NAME: Susi Ortiz DATE: February 12, 2022 TIME: 2:30 PM documented in this encounterCleveland Clinic [facility]07-25-2022 History of Present illness Narrative* Joe Granda MD - 01/20/2022 2:37 PM EDT VIRTUAL VISIT PROGRESS NOTE This is a virtual visit using testhub video visit. It required patient-provider interaction for themedical decision making as documented below. Susi Ortiz is a 36 year old female seen for follow-up after her recent endoscopy. It demonstrated a somewhat redundant fundus and a sleeve than a diverticulum on the distal sleeve staple line or I expect that her slipped stent being been previously removed. She reports increased reflux and abdominal pain after eating. Somewhat mixed messages some stating that she is unable to eat anything and then she is also able to recall he will eat a fair bit of food. She states she is focusing on protein rich foods but she has not been able to lose any additionalweight. She is not obtained the recommended imaging of an upper GI series and CT abdomen and pelvis.. HISTORY REVIEWED (electronic chart updated): PAST MEDICAL HISTORY Diagnosis Date Bipolar disorder (HCC) DDD (degenerative disc disease), lumbar Depression Eczema GERD (gastroesophageal reflux disease) Migraine PAST SURGICAL HISTORY Procedure Laterality Date CHOLECYSTECTOMY HX 06/29/2007 LAP SLEEVE GASTRECTOMY 2017 NEUROPLASTY &/TRANSPOS MEDIAN NRV CARPAL TUNNE 2008;2009 bilateral S PROBE PERC LUMBAR DISCECTOMY 2011; 2012 L4, L5 and L5 S1 SPLENECTOMY TOTAL SEPARATE PROCEDURE 06/29/2014 FAMILY HISTORY Problem Relation Age of Onset Thyroid Mother hypothyrodism Obesity Mother Obesity Father Diabetes Father HTN; Lymphoma Obesity Sister other (Migraines [Other]) Sister Diabetes Paternal Grandmother Stroke Paternal Grandfather None Daughter None Son Diabetes Paternal Uncle Social History Tobacco Use Smoking status: Former Smoker Packs/day: 0.50 Years: 5.00 Pack years: 2.50 Types: Cigarettes Quit date: 12/27/2013 Years since quittin.0 Smokeless tobacco: Never Used Vaping Use Vaping Use: Never used Substance Use Topics Alcohol use: Not Currently Comment: None since 2012 Drug use: Never Current Outpatient Medications Medication Sig ARIPiprazole (ABILIFY) 10 mg tablet Take 10 mg by mouth daily at bedtime. busPIRone (BUSPAR) 15 mg tablet Take 15 mg by mouth twice daily. famotidine (PEPCID) 20 mg tablet Take 20 mg by mouth twice daily as needed. lamoTRIgine (LAMICTAL) 100 mg tablet Take 100 mg by mouth every morning. prazosin (MINIPRESS) 1 mg cap Take 1 mg by mouth daily at bedtime. propranolol (INDERAL) 60 mg tablet Take 60 mg by mouth twice daily. hydrOXYzine pamoate (VISTARIL) 50 mg capsule Take 50 mg by mouth twice daily. sucralfate (CARAFATE) 1 gram tablet Take 1 g by mouth four times daily. DULoxetine (CYMBALTA) 60 mg capsule Take 60 mg by mouth once daily. pantoprazole DR (PROTONIX) 40 mg tablet Take 40 mg by mouth once daily. loratadine (CLARITIN) 10 mg tablet Take 10 mg by mouth once daily. ondansetron orally disintegrating (ZOFRAN ODT) 4 mg disintegrating tablet Take 1 tablet by mouth every 8 hours as needed. acetaminophen (TYLENOL) 325 mg tablet Take 650 mg by mouth as needed. dicyclomine (BENTYL) 20 mg tablet Take 20 mg by mouth every 6 hours. fluticasone (FLONASE) 50 mcg/actuation nasal spray Use 2 Sprays in each nostril once daily. cetirizine (ZYRTEC) 10 mg tablet Take 10 mg by mouth once daily. topiramate (TOPAMAX) 100 mg tablet Take 100 mg by mouth once daily. No current facility-administered medications for this visit. ALLERGIES Allergen Reactions Adhes. Vfog-Xmtt-Hf* Rash Adhesive Tape-Silic* Rash Augmentin [Amoxicil* Diarrhea Keflex [Cephalexin] Rash, Itching Penicillins Hives Ultram [Tramadol Hc* Itching PHYSICAL EXAMINATION: VIDEO EXAM: (if completed, performed via video enabled technology) GENERAL: alert and appropriate, in no distress, appears tired and overweight ASSESSMENT: (R10.13) Epigastric pain (primary encounter diagnosis) (K21.9) Gastroesophageal reflux disease without esophagitis (Z90.3) History of sleeve gastrectomy PLAN: She is already on maximal antireflux therapy. I am discussed with her the importance of obtaining the upper GI series to evaluate how her sleeve function with the flow through it and for any functional strictures. Even more important in her situation is the CT abdomen and pelvis to assess for any persistent gastric fistula. In particular I think this is important given her recent increase in abdominal pain postprandially. These would significantly change my intraoperative plan and preoperative planning. I also discussed with her the importance of preoperative weight loss. At a BMI of 70 it isoften not technically feasible to perform a gastric bypass with a short pouch because of issues of reach. This is particularly true in her situation since it is a complex revision with a history of sleeve leakage and a prior splenectomy. The renal I discussed this in amanda terms I am not sure she fully understood the implications of this and the high risk nature of revisional surgery in her case I am reaching out to obesity RD and psych to see if she can be more optimally prepared. I spent a total of 25 minutes on the date of the service which included preparing to see the patient, [id number] patient care, completing clinical documentation, obtaining and/or reviewing separately obtained history, performing a medically appropriate examination, counseling and educating the pat ient/family/caregiver, ordering medications, tests, or procedures, communicating with other HCPs (not separately reported) and care coordination (not separately reported) Joe Granda MD documented in this encounterCleveland Clinic [facility]07-22-2022 History of Present illness Narrative* Alex Yodit, RD - 01/17/2022 9:12 AM EDT AMBULATORY PATIENT EDUCATION NOTE- Shared Virtual Nutrition Group This group visit was performed virtually due to the COVID-19 epidemic as an effort to protect patients and minimize exposure. Consent from patient received to conduct a group visit virtually. This Team Access Model visit is a virtual group encounter. It required patient-provider interaction for themedical decision making as documented below. Patient reports weight (as measured by home scale) of 396 pounds. TOPIC: LIFE STYLE CHANGES: Pre-op weight loss surgery (Revision LSG to ?Gastrectomy/DS): Diet and Exercise PAIN: Is the patient having any pain that is interfering with oral / enteral intake? No: 0 on a scale of 0 to 10 PROGRESS: Nutrition Intervention (date of last encounter 11/04/21): 1. Research the post-op vitamin options (can change depending on what procedure is done) Some examples of vitamins/mineral companies: - Bariatric Fusion: 4 Complete Chewable Multivitamins per day (2 in the AM, 2 in the PM) www.bariatricfusion.evolso - Pro[employer] Health: 1 Bariatric Multivitamin and Calcium Citrate (total of 1200- 1500 mg/day) * take calcium citrate separately from Multivitamin with iron at least 2 hours apart and 4 hours apart from additional calcium www.Talentory.com - Bariatric Choice: 4 Complete Multivitamins (chewables) per day Www.WinLocal.evolso - Bariatric Advantage: 2 Multivitamins and 3 Calcium Citrate Chewables per day * take calcium citrate separately from Multivitamin with iron at least 2 hours apart and 4 hours apart from additional calcium [email or web address].bariatricadKloutage.[email or web address] 2. Do not skip meals. 3. Use protein shake 1-2x per day to replace any skipped meals or for breakfast 4. Use the Healthy Plate Method of portion control for lunch and dinner 4 oz lean meat (fish, chicken, pork tenderloin, turkey, seafood, eggs/cheese) 1/2 plate non starchy vegetables (salad, greens, cabbage, spinach, brussels sprouts, broccoli, carrots, celery, peppers, green beans, cauliflower) 1 cup starch/starchy vegetables (corn, peas, beans, winter squash, sweet potato, brown rice, whole grain pasta, whole grain bread products, quinoa) 5. Physical activity: Continue to aim for at least 150 minutes per week. Include both cardio and weight resistance. 6. Drink 64 ounces per day water. Fluids should follow these guidelines: No carbonation, no caffeine, no calories, no alcohol. 7. Try the 2 week liquid diet protein shake options Slim Fast Advanced Nutrition OR Light Start [place] Breakfast Essentials mixed with 1% or skim milk OR Atkins Protein Shakes (15 gm protein version) OR Glucose Controlled Boost Pre-op goal weight: 380 pounds - per Dr. Granda Protein needs: 77 gm per day CHANGES IN TREATMENT: Patient met goal(s): Yes Actions to implement interventions: Breakfast - Protein Shake (Premier) OR oatmeal Snack - none Lunch - turkey/ham and cheese roll up Snack - none Dinner - chicken and vegetables Snack - sometimes, cheese OR deviled egg Fluids - water (64 oz), diet juice Exercise - walking, stairs 3-4x per week Diagnosis: has not changed. Anthropometrics: Resting Metabolic Rate: 2456 Body mass index is 70.15 kg/m . Malnutrition Screening Significant unintentional weight loss? No Eating less than 75% of usual intake for more than 2 weeks? No Nutritional status: Educational materials provided: none this visit READINESS TO LEARN Cognitive ability: Alert and oriented Motivation to learn: Interested Family support: Unable to assess - Family not present Instruction provided to: Patient Patient learns best by: Multiple Methods Factors affecting learning: None Physical limitations affecting learning: None Likelihood of Adherence: High Patient participated in preop bariatric surgery shared nutrition appointment. Patient participated actively in group. Since last assessment Patient reports weight loss of 11 pounds. Diet recall reveals continued difficulty with daily reflux and vomiting. Consistent meal pattern with attention to protein intake and portion control. Utilizing protein shake as meal replacement appropriately. Fluids meeting recommendations with sufficient daily water intake. Physical activity continues to be consistent and meets low-end recommendations. After session today, patient able to verbalize protein/fluid/exercise goals, recommendations for vitamin/minerals, use of protein shakes for meal replacement and for 2 week full liquid diet phase. Also able to demonstrate post op diet advancement/portion control using food models. Anticipate post op compliance. The patient has been thoroughly evaluated and educated on good dietary practices. Patient is capable of following these guidelines pre-and post- surgically. From nutrition standpoint, the patient is cleared for weight loss surgery. If the patient desires, may continue to follow-up with the dietitianon a monthly basis until all surgical requirements are met. Nutrition Diagnosis: Overweight/obesity, related to, food/nutrition - related knowledge deficit, asevidenced by BMI above normative standard for age and gender. Nutrition Intervention: Modify type and amount of intake at meals and snacks Please call [phone], option 5. Leave a message for the navigation team when you are finishedwith all clearances (nutrition, psychology, medical, surgeon) 1.Starting ~3 weeks after surgery take: daily multivitamin Vit D3 3,000 international unit(s) Vit B12 500 mcg Vit B1 20-100 mg Iron 45 mg Calcium CITRATE 4348-0057 mg/day OR It is okay to use combination vitamin/minerals to reduce pill volume. (Examples [id number] Wireless Bariatric Multivitamin- 45 (1) chewable/day AND 7322-1079 mg calcium citrate OR Bariatric Fusion chewable complete bariatric vitamin (2) chews, twice daily. IF DS: - Bariatric Fusion ADEK Complete Capsule (3x per day) AND 3926-8691 mg calcium citrate OR - Bariatric Advantage High ADEK Chewable Multivitamin (2x per day) AND 7147-4046 mg calcium citrate OR -Celebrate multi-ADEK chewable (3x per day) AND 2167-1777 mg calcium citrate AND 1 chewable Iron 45-60 mg AND OR -ProCare DS/LEIDA Bariatric multivitamin with 60 mg Iron (1x per day) AND 1800- 2400 mg calcium citrate daily 2. Protein goal: 77 grams protein/day OR if DS: 96 gm per day 3. Fluid goal: 64oz per day water. (no calories, no caffeine, no carbonation, no alcohol) 4. Exercise goal: 150-250 minutes combination cardio/strength training/week 5. Practice mindful eating habits-take small portions, eat slowly, chew thoroughly 6. Start the full liquid diet (2) weeks prior to surgery using the approved protein shakes listed below, continue a minimum of 64 oz water per day during this time. No solid food. May have sugar freepopsicle and sugar free jello -During the 2 week liquid diet before surgery include a daily Super B-Complex vitamin -Liquid diet protein shake options: 4.5 bottles Slim Fast Advanced Nutrition OR 5.5 packets Light Start Woodrow Breakfast Essentials mixed with 1% or skim milk OR 5 Atkins Protein Shakes (15 gm protein version) OR 4.5 bottles Glucose Controlled Boost 7. Advance diet as tolerated after surgery. Use the Your Guide to Surgery for guidance and meal plans Preop weight goal: 380 pounds Nutrition Monitoring & Evaluation: 1-2 # weight loss per week prior to surgery Criteria: Weight check Need for Follow up: 2 weeks pre-op Group Appointment Start Time: 8:00 AM Group Appointment End Time: 8:45 AM Time Spent on Consult: 45 minutes - Group Signed by: Alex Monsivais RD documented in this encounterC[facility] Instructions* Patient Instructions* Alex Monsivais RD - 01/17/2022 9:12 AM EDT Please call [phone], option 5. Leave a message for the navigation team when you are finishedwith all clearances (nutrition, psychology, medical, surgeon) 1.Starting ~3 weeks after surgery take: daily multivitamin Vit D3 3,000 international unit(s) Vit B12 500 mcg Vit B1 20-100 mg Iron 45 mg Calcium CITRATE 2478-4712 mg/day OR It is okay to use combination vitamin/minerals to reduce pill volume. (Examples Pro[employer] Health Bariatric Multivitamin- 45 (1) chewable/day AND 4585-8839 mg calcium citrate OR Bariatric Fusion chewable complete bariatric vitamin (2) chews, twice daily. IF DS: - Bariatric Fusion ADEK Complete Capsule (3x per day) AND 6307-2914 mg calcium citrate OR - Bariatric Advantage High ADEK Chewable Multivitamin (2x per day) AND 1001-6280 mg calcium citrate OR -Celebrate multi-ADEK chewable (3x per day) AND 1480-2875 mg calcium citrate AND 1 chewable Iron 45-60 mg AND OR -ProCare DS/LEIDA Bariatric multivitamin with 60 mg Iron (1x per day) AND 1800- 2400 mg calcium citrate daily 2. Protein goal: 77 grams protein/day OR if DS: 96 gm per day 3. Fluid goal: 64oz per day water. (no calories, no caffeine, no carbonation, no alcohol) 4. Exercise goal: 150-250 minutes combination cardio/strength training/week 5. Practice mindful eating habits-take small portions, eat slowly, chew thoroughly 6. Start the full liquid diet (2) weeks prior to surgery using the approved protein shakes listed below, continue a minimum of 64 oz water per day during this time. No solid food. May have sugar freepopsicle and sugar free jello -During the 2 week liquid diet before surgery include a daily Super B-Complex vitamin -Liquid diet protein shake options: 4.5 bottles Slim Fast Advanced Nutrition OR 5.5 packets Light Start Woodrow Breakfast Essentials mixed with 1% or skim milk OR 5 Atkins Protein Shakes (15 gm protein version) OR 4.5 bottles Glucose Controlled Boost 7. Advance diet as tolerated after surgery. Use the Your Guide to Surgery for guidance and meal plans Preop weight goal: 380 pounds Nutrition Monitoring & Evaluation: 1-2 # weight loss per week prior to surgery Criteria: Weight check Need for Follow up: 2 weeks pre-op documented in this encounterC[facility]06[facility]22 History and physical note * Joe Granda MD - 12/18/2021 11:15 AM EDT UPDATED HISTORY AND PHYSICAL EXAMINATION SERVICE DATE: 12/18/2021 SERVICE TIME: 12:10 PM PHYSICAL EXAM MUST BE COMPLETED ON ADMISSION The History and Physical (completed in the past 30 days) has been reviewed and the patient has beenexamined. The contents accurately reflect the patient's condition with the following additions or revisions since the H&P was completed. Examination indicates no changes. This H&P can be found in the attached. SIGNATURE: Joe Granda MD PATIENT NAME: Susi Ortiz DATE: December 18, 2021 TIME: 12:10 PM * Melissa Olivas PA-C - 12/05/2021 1:10 PM EDT HISTORY AND PHYSICAL EXAMINATION SERVICE DATE: 12/05/2021 SERVICE TIME: 1:12 PM PRIMARY CARE PHYSICIAN: Geneva Estrada, KATTY, PRE SALES TECHNICAL CONSULTANT This is a virtual visit using alternative video platform. It required patient- provider interaction for the medical decision making as documented below. REASON FOR VISIT: Susi Ortiz is a 36 year old female who is scheduled for EGD at the request of Dr. Joe Granda for consultation. My final recommendation will be communicated back to the requesting physician by way of shared medical record or letter. Subjective The patient has the following: ACTIVE PROBLEM LIST Thrombocytosis Tonsillar Enlargement Toney On Cpap Gastroesophageal Reflux Disease Ddd (Degenerative Disc Disease), Lumbar Bipolar Affective Disorder (Hcc) Recurrent Tonsillitis Morbid Obesity With Body Mass Index of 60.0-69.9 in Adult ([facility]) COVID-19 Immunization Status Overdue - COVID-19 VACCINE (3 - Booster for Pfizer series) Overdue since 12/01/2021 07/03/2021 Imm Admin: COVID-19 vaccine, age 12+ yr (PFIZER-BIONTECH - PURPLE TOP) 06/13/2021 Imm Admin: COVID-19 vaccine, age 12+ yr (PFIZER-BIONTECH - PURPLE TOP) Patient reports being fully vaccinated against COVID-19. CHIEF COMPLAINT: history of bariatric surgery HPI: Susi Ortiz is a 36 year old female who presents s/p gastric sleeve in 2017 with leak and re-op gastrotomy and stent extraction shortly after. She reports some ongoing GERD symptoms that have worsened since her bariatric surgery. She is on pantoprazole, pepcid, and carafate with minimal relief. Symptoms are generally worsened with meals but can occur anytime. She admits to some nausea and upper abdominal pain but no changes in bowel movements, major weight changes, or changes in appetite per patient. REVIEW OF SYSTEMS: General: No weight loss, malaise or fevers. Neurological: Denies dizziness or lightheadedness Negative for: headaches, seizures, TIA and strokes. Respiratory: Positive for: obstructive sleep apnea and CPAP/BiPAP noncompliant. Negative for: asthma, COPD, current cough, dyspnea and home oxygen. Cardiovascular: Denies palpitations or syncope Negative for: chest pain, DVT/PE, hyperlipidemia, hypertension and murmur/valvular heart disease. GI: See HPI. Negative for: liver disease. : Negative for: dysuria, frequent urination and hematuria. 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 Hematology: +hx thrombocytosis s/p splenectomy 2014 Negative for: anemia and chronic anti-coagulation/platelet meds. Oncology: No history of CA metastasis, chemo within 30 days, or radiotherapy within 90 days. No history of oncological symptoms or problems. Psych: +bipolar affective per chart Musculoskeletal: Positive for: back pain (occasional, s/p lumbar surgeries). Skin: Negative for lesions, rash and itching. PAST MEDICAL HISTORY Diagnosis Date Bipolar disorder (HCC) DDD (degenerative disc disease), lumbar Depression Eczema GERD (gastroesophageal reflux disease) Migraine PAST SURGICAL HISTORY Procedure Laterality Date CHOLECYSTECTOMY HX 06/29/2007 LAP SLEEVE GASTRECTOMY 2017 NEUROPLASTY &/TRANSPOS MEDIAN NRV CARPAL TUNNE 2008;2009 bilateral S PROBE PERC LUMBAR DISCECTOMY 2011; 2012 L4, L5 and L5 S1 SPLENECTOMY TOTAL SEPARATE PROCEDURE 06/29/2014 FAMILY HISTORY Problem Relation Age of Onset Thyroid Mother hypothyrodism Obesity Mother Obesity Father Diabetes Father HTN; Lymphoma Obesity Sister other (Migraines [Other]) Sister Diabetes Paternal Grandmother Stroke Paternal Grandfather None Daughter None Son Diabetes Paternal Uncle Social History Tobacco Use Smoking status: Former Smoker Packs/day: 0.50 Years: 5.00 Pack years: 2.50 Types: Cigarettes Quit date: 12/27/2013 Years since quittin.9 Smokeless tobacco: Never Used Vaping Use Vaping Use: Never used Substance Use Topics Alcohol use: Not Currently Comment: None since 2012 Drug use: Never Prior to Admission medications as of 12/05/21 1319 Medication Sig Last Dose Taking ARIPiprazole (ABILIFY) 10 mg tablet Take 10 mg by mouth daily at bedtime. Taking Yes busPIRone (BUSPAR) 15 mg tablet Take 15 mg by mouth twice daily. Taking Yes famotidine (PEPCID) 20 mg tablet Take 20 mg by mouth twice daily as needed. Taking Yes lamoTRIgine (LAMICTAL) 100 mg tablet Take 100 mg by mouth every morning. Taking Yes prazosin (MINIPRESS) 1 mg cap Take 1 mg by mouth daily at bedtime. Taking Yes propranolol (INDERAL) 60 mg tablet Take 60 mg by mouth twice daily. Taking Yes hydrOXYzine pamoate (VISTARIL) 50 mg capsule Take 50 mg by mouth twice daily. Taking Yes sucralfate (CARAFATE) 1 gram tablet Take 1 g by mouth four times daily. Taking Yes DULoxetine (CYMBALTA) 60 mg capsule Take 60 mg by mouth once daily. Taking Yes pantoprazole DR (PROTONIX) 40 mg tablet Take 40 mg by mouth once daily. Taking Yes loratadine (CLARITIN) 10 mg tablet Take 10 mg by mouth once daily. Taking Yes ondansetron orally disintegrating (ZOFRAN ODT) 4 mg disintegrating tablet Take 1 tablet by mouth every 8 hours as needed. Taking Yes dicyclomine (BENTYL) 20 mg tablet Take 20 mg by mouth every 6 hours. Taking Yes fluticasone (FLONASE) 50 mcg/actuation nasal spray Use 2 Sprays in each nostril once daily. Taking Yes cetirizine (ZYRTEC) 10 mg tablet Take 10 mg by mouth once daily. Taking Yes topiramate (TOPAMAX) 100 mg tablet Take 100 mg by mouth once daily. Taking Yes acetaminophen (TYLENOL) 325 mg tablet Take 650 mg by mouth as needed. No medication comments found. ALLERGIES Allergen Reactions Adhes. Espo-[id number]-Xs* Rash Adhesive Tape-Silic* Rash Augmentin [Amoxicil* Diarrhea Keflex [Cephalexin] Rash, Itching Penicillins Hives Ultram [Tramadol Hc* Itching Objective PHYSICAL EXAM: (if completed, exam performed via video enabled technology) General: alert and oriented and healthy appearance. Pertinent negatives noted - not distressed. Skin: normal color, no rash or lesions. HEENT: Normocephalic, atraumatic. Cardiovascular: Not examined virtually. Respiratory: Equal rise and fall of chest with deep inspirations, no acute respiratory distress. Abdomen: Not examined. Extremities: Not examined. Neurological: Grossly normal cognition and speech. PAIN ASSESSMENT: VITALS: Ht 5' 4 [reported by patient[ (1.63m) Wt 385 lb (174.6kg) LMP 09/24/2015 BMI 66.05 kg/(m^2). Diagnostic tests reviewed for today's visit: Lab Value Units Date High Low HB No results within date range. HCT No results within date range. WBC No results within date range. PLT No results within date range. NA No results within date range. K No results within date range. GLUC No results within date range. BUN No results within date range. CREAT No results within date range. PTSEC No results within date range. INR No results within date range. APTT No results within date range. ALT No results within date range. AST No results within date range. TBILI No results within date range. TSH No results within date range. Lab Value Units Date High Low HCGQT No results within date range. UHCG No results within date range. HCG, BODY* No results within date range. Lab Value Units Date High Low ABORHD No results within date range. ABSCREEN No results within date range. No results found for: HBA1C No results found for this or any previous visit (from the past 8760 hour(s)). No results found for this or any previous visit (from the past 90426 hour(s)). Assessment TONEY on CPAP Assessment: not currently using CPAP Thrombocytosis ([facility]) Assessment: s/p splenectomy in 2014, last labs available in [facility] from 01/2021 showing platelets at 488, plan to discuss with Dr. Granda for review. Bipolar affective disorder ([facility]) Assessment: stable on current rx per patient Gastroesophageal reflux disease Assessment: on PPI and sucralfate Morbid obesity with body mass index of 60.0-69.9 in adult ([facility]) Assessment: Body mass index is 66.09 kg/m . Dugan Activity Status Index: METS: Climb a flight of stairs or walk up a hill (5.50 METs) DASI Score: 5.5 Patient denies any chest pain or undue shortness of breath with the above physical activity. Clinical Frailty Scale: 3. Well, with treated comorbid disease [id number] Score: Age: <65 Sex: female [id number] Score: 1 ARISCAT Score: Age: <=50 ARISCAT Score: ASA Class: 3 ANESTHESIA FINDINGS: Intubation History: No history of difficult intubation. No abnormal airway history Significant Anesthesia Considerations: none Airway History: No history of difficult airway No abnormal airway history I - PHYSICAL EVALUATION AIRWAY Tracheostomy tube not present Mallampati: II. TM distance: >3 FB. Neck ROM: full ROM without neurological symptoms. Mouth opening: adequate. Short neck: yes. Thick neck: yes DENTAL Dental findings: teeth intact. II - ANESTHESIA PLAN ASA Score: 3 Anesthetic Plan: MAC Prepared for Surgery: optimally prepared for surgery, pending (see comment). Dr. Granda's review of labs CONSULTS: Patient does not require consults for optimization at this time Planned Anesthetic: MAC The Following Tests/Procedures Have Been Initiated: Orders Placed This Encounter ARIPiprazole (ABILIFY) 10 mg tablet Sig: Take 10 mg by mouth daily at bedtime. busPIRone (BUSPAR) 15 mg tablet Sig: Take 15 mg by mouth twice daily. famotidine (PEPCID) 20 mg tablet Sig: Take 20 mg by mouth twice daily as needed. lamoTRIgine (LAMICTAL) 100 mg tablet Sig: Take 100 mg by mouth every morning. prazosin (MINIPRESS) 1 mg cap Sig: Take 1 mg by mouth daily at bedtime. propranolol (INDERAL) 60 mg tablet Sig: Take 60 mg by mouth twice daily. Instructions Given to Patient: Instructions located in the after visit summary. Patient given verbal and written preop instructions and voices comprehension and compliance. SIGNATURE: Melissa Olivas PA-C PATIENT NAME: Susi Ortiz DATE: December 05, 2021 TIME: 1:10 PM PAGER/CONTACT #: documented in this encounterC[facility]06-09-2022 History of Present illness Narrative* Akosua Peraza RD - 12/05/2021 11:45 AM EDT No show for nutrition appointment on 12/05/21. Signed by: Akosua Peraza RD documented in this encounterC[facility]05-18-2022 Evaluation note* Encounter Date Diagnosis Assessment Notes Treatment Notes Treatment Clinical Notes October, Left foot pain (ICD-10 - M79.672) Wear the Trent wrap for comfort and compression to your foot. Wear the postop shoe for comfort and compression for 7 to 10 days. If no improvement after 7 to 10 days, follow-up with your family physician for reevaluation. Take the ibuprofen as prescribed as needed for mild to moderate pain. Add 2 extra strength Tylenol to your dose of Motrin for severe pain. Limit your lifting and bending. October, Strain of lumbar region, initial encounter (ICD-10 - S39.012A) October, Sprain of left foot, initial encounter (ICD-10 - S93.602A) October, Other Foot sprain elsa e care material was printed [employer] Other 05-11-2022 History of Present illness Narrative* Joe Granda MD - 11/06/2021 9:40 AM EDT Assessment NEW BARIATRIC PATIENT PATIENT NAME: Susi Ortiz REASON FOR CONSULT: Morbid Obesity REQUESTING PHYSICIAN: Self DATE of SERVICE: 11/06/2021 TIME of SERVICE: 9:40 AM PCP: Geneva Estrada, PRE SALES TECHNICAL CONSULTANT, PRE SALES TECHNICAL CONSULTANT CC: Morbid Obesity HPI: Ms. Ortiz is a 36 year old female who is seen for 2 issues. One is for reflux after sleeve gastrectomy. The other is persistent morbid obesity. In 2017 this patient underwent a laparoscopic sleeve gastrectomy at another institution. This leaked. Review of the postoperative EGD describes a proximal leak with stent placement. The stent was attempted to be removed however it broke. Reviewof her discharge summary but I was not able to identify the operative report and the shared medicalrecord they describe she had a reoperation with gastrotomy and extraction of the stent through the gastrotomy and closure of the stomach. This was complicated by the left upper quadrant abscess but without additional leakage. This was treated with a radiologic drain. She has daily reflux symptoms. She also desires additional weight loss. PAST MEDICAL HISTORY: PAST MEDICAL HISTORY Diagnosis Date Bipolar disorder (HCC) DDD (degenerative disc disease), lumbar Depression Eczema GERD (gastroesophageal reflux disease) Migraine PAST SURGICAL HISTORY: PAST SURGICAL HISTORY Procedure Laterality Date CHOLECYSTECTOMY HX 06/29/2007 LAP SLEEVE GASTRECTOMY 2017 NEUROPLASTY &/TRANSPOS MEDIAN NRV CARPAL TUNNE 2008;2009 bilateral S PROBE PERC LUMBAR DISCECTOMY 2011; 2012 L4, L5 and L5 S1 SPLENECTOMY TOTAL SEPARATE PROCEDURE 06/29/2014 SOCIAL HISTORY: Social History Tobacco Use Smoking status: Former Smoker Packs/day: 0.50 Years: 5.00 Pack years: 2.50 Types: Cigarettes Quit date: 12/27/2013 Years since quittin.8 Smokeless tobacco: Never Used Vaping Use Vaping Use: Never used Substance Use Topics Alcohol use: Not Currently Comment: None since 2012 Drug use: Never ALLERGIES: ALLERGIES Allergen Reactions Adhes. [id number]* Rash Adhesive Tape-Silic* Rash Augmentin [Amoxicil* Diarrhea Keflex [Cephalexin] Rash, Itching Penicillins Hives Ultram [Tramadol Hc* Itching FAMILY HISTORY: FAMILY HISTORY Problem Relation Age of Onset Thyroid Mother hypothyrodism Obesity Mother Obesity Father Diabetes Father HTN; Lymphoma Obesity Sister other (Migraines [Other]) Sister Diabetes Paternal Grandmother Stroke Paternal Grandfather None Daughter None Son Diabetes Paternal Uncle MEDICATIONS: Prior to Admission Medications: hydrOXYzine pamoate (VISTARIL) 50 mg capsule Take 50 mg by mouth twice daily. sucralfate (CARAFATE) 1 gram tablet Take 1 g by mouth four times daily. DULoxetine (CYMBALTA) 60 mg capsule Take 60 mg by mouth once daily. pantoprazole DR (PROTONIX) 40 mg tablet Take 40 mg by mouth once daily. loratadine (CLARITIN) 10 mg tablet Take 10 mg by mouth once daily. ondansetron orally disintegrating (ZOFRAN ODT) 4 mg disintegrating tablet Take 1 tablet by mouth every 8 hours as needed. acetaminophen (TYLENOL) 325 mg tablet Take 650 mg by mouth as needed. dicyclomine (BENTYL) 20 mg tablet Take 20 mg by mouth every 6 hours. fluticasone (FLONASE) 50 mcg/actuation nasal spray Use 2 Sprays in each nostril once daily. cetirizine (ZYRTEC) 10 mg tablet Take 10 mg by mouth once daily. topiramate (TOPAMAX) 100 mg tablet Take 100 mg by mouth once daily. No current facility-administered medications for this visit. FAMILY HISTORY: FAMILY HISTORY Problem Relation Age of Onset Thyroid Mother hypothyrodism Obesity Mother Obesity Father Diabetes Father HTN; Lymphoma Obesity Sister other (Migraines [Other]) Sister Diabetes Paternal Grandmother Stroke Paternal Grandfather None Daughter None Son Diabetes Paternal Uncle COMPLETE REVIEW OF SYSTEMS Constitutional--Negative for fevers, chills, fatigue. Cardiovascular--Negative for orthopnea, PND Gastrointestinal--See HPI Pulmonary--Negative for intermittent dyspnea cough or hemoptysis : No history of dysuria, frequency or incontinence A complete review of systems was otherwise negative PHYSICAL EXAMINATION: BP 133/74 Pulse 86 Ht 160 cm (5' 3 ) Wt (!) 184.6 kg (407 lb) LMP 09/24/2015 BMI 72.10 kg/m General appearance: Well appearing, alert, in no acute distress, well-hydrated, well nourished. Abdomen - quite obese IMPRESSION and PLAN The fact that she had a sleeve leak at her first operation and she currently has a very high BMI at72. She also has reflux so would like that to be treated. This changes her situation as ideally with a BMI this high and a prior sleeve a conversion to a biliopancreatic diversion with duodenal switch would be the recommended treatment of persistent morbid obesity. However this would not improve her reflux. I would like to obtain a EGD, upper GI series, and CT of the abdomen and pelvis to evaluate her current sleeve anatomy and evaluate for any persistent fistulas or abscesses which can be subclinical in patients with morbid obesity. I will plan for her to follow-up with me after this testing is completed. I spent a total of 30 minutes on the date of the service which included preparing to see the patient, [id number] patient care, completing clinical documentation, obtaining and/or reviewing separately obtained history, ordering medications, tests, or procedures and care coordination (not separately reported). Joe Granda MD documented in this encounterCleveland Clinic [facility]05-09-2022 Instructions* Patient Instructions* Alex Monsivais, RD - 11/04/2021 12:44 PM EDT 1. Research the post-op vitamin options (can change depending on what procedure is done) Some examples of vitamins/mineral companies: - Bariatric Fusion: 4 Complete Chewable Multivitamins per day (2 in the AM, 2 in the PM) www.bariatricfusion.com - Procare Health: 1 Bariatric Multivitamin and Calcium Citrate (total of 1200- 1500 mg/day) * take calcium citrate separately from Multivitamin with iron at least 2 hours apart and 4 hours apart from additional calcium [email or web address] - Bariatric Choice: 4 Complete Multivitamins (chewables) per day Www.bariatricchoice.com - Bariatric Advantage: 2 Multivitamins and 3 Calcium Citrate Chewables per day * take calcium citrate separately from Multivitamin with iron at least 2 hours apart and 4 hours apart from additional calcium [email or web address].[email or web address] 2. Do not skip meals. 3. Use protein shake 1-2x per day to replace any skipped meals or for breakfast 4. Use the Healthy Plate Method of portion control for lunch and dinner 4 oz lean meat (fish, chicken, pork tenderloin, turkey, seafood, eggs/cheese) 1/2 plate non starchy vegetables (salad, greens, cabbage, spinach, brussels sprouts, broccoli, carrots, celery, peppers, green beans, cauliflower) 1 cup starch/starchy vegetables (corn, peas, beans, winter squash, sweet potato, brown rice, whole grain pasta, whole grain bread products, quinoa) 5. Physical activity: Continue to aim for at least 150 minutes per week. Include both cardio and weight resistance. 6. Drink 64 ounces per day water. Fluids should follow these guidelines: No carbonation, no caffeine, no calories, no alcohol. 7. Try the 2 week liquid diet protein shake options Slim Fast Advanced Nutrition OR Light Start Woodrow Breakfast Essentials mixed with 1% or skim milk OR Atkins Protein Shakes (15 gm protein version) OR Glucose Controlled Boost Pre-op goal weight: 380 pounds - per Dr. Granda Protein needs: 77 gm per day Nutrition Monitoring & Evaluation: 1-2 # weight loss per week prior to surgery Criteria: Weight check Need for Follow up: 1 month, [phone] documented in this encounterCleveland Clinic Avon [facility] History of Present illness Narrative* Alex Monsivais RD - 11/04/2021 12:43 PM EDT AMBULATORY PATIENT EDUCATION NOTE- Shared Virtual Nutrition Group This group visit was performed virtually due to the COVID-19 epidemic as an effort to protect patients and minimize exposure. Consent from patient received to conduct a group visit virtually. This Team Access Model visit is a virtual group encounter. It required patient-provider interaction for themedical decision making as documented below. Patient reports weight (as measured by office scale earlier today) of 407 pounds. TOPIC: LIFE STYLE CHANGES: Pre-op weight loss surgery (Revision - possible gastrectomy): Diet and Exercise PAIN: Is the patient having any pain that is interfering with oral / enteral intake? No: 0 on a scale of 0 to 10 PROGRESS: Nutrition Intervention (date of last encounter 10/08/21): 1. Read Nutritional Guidelines Section of Your Guide to Surgery by next session [email or web address] 2. Do not skip meals. 3. Use protein shake 1x per day to replace any skipped meals or for breakfast 4. Use the Healthy Plate Method of portion control for lunch and dinner 4 oz lean meat (fish, chicken, pork tenderloin, turkey, seafood, eggs/cheese) 1/2 plate non starchy vegetables (salad, greens, cabbage, spinach, brussels sprouts, broccoli, carrots, celery, peppers, green beans, cauliflower) 1 cup starch/starchy vegetables (corn, peas, beans, winter squash, sweet potato, brown rice, whole grain pasta, whole grain bread products, quinoa) 5. Physical activity: Aim for 150 minutes of physical activity per week. 6. Drink 64 ounces per day water. Fluids should follow these guidelines: No carbonation, no caffeine, no calories, no alcohol. 7. Start to explore vitamins and minerals for post-op (3 weeks after surgery): Some examples of vitamins/mineral companies: - Bariatric Fusion: 4 Complete Chewable Multivitamins per day (2 in the AM, 2 in the PM). www.[email or web address].com - [employer] Health: 1 Bariatric Multivitamin and Calcium Citrate (total of 1200- 1500 mg/day) * take calcium citrate separately from Multivitamin with iron at least 2 hours apart and 4 hours apart from additional calcium [email or web address] - Bariatric Choice: 4 Complete Multivitamins (chewables) per day [email or web address] - Bariatric Advantage: 2 Multivitamins and 3 Calcium Citrate Chewables per day * take calcium citrate separately from Multivitamin with iron at least 2 hours apart and 4 hours apart from additional calcium. [email or web address] For reflux: 1. Try to eat something every 2-3 hours and do not skip meals. Large meals may increase stomach pressure and make your reflux worse. 2. Avoid possible trigger foods as follows: Caffeine (regular coffee, regular tea) Carbonated beverages Mints (peppermint, spearmint) Fried, greasy foods Garlic and onions [place] fruits, juices Alcohol Tomato products Spicy foods Chocolate 3. Drink at least 8-12 cups of non-caffeinated, non-carbonated, alcohol-free fluids daily. 4. Sit upright while eating and for 45-60 minutes afterward. 5. Avoid eating at least three hours before bedtime. 6. Incorporate walking daily as discussed. Pre-op goal weight: [address] Granda Protein needs: 77 gm per day CHANGES IN TREATMENT: Patient met goal(s): Yes Actions to implement interventions: Breakfast - Protein Shake (premier) Snack - none Lunch - eggs and cheese Snack - sometimes, cheese OR yogurt smoothie Dinner - chicken with vegetables Snack - none Fluids - water (48-64 oz) Exercise - walking most days (pool aerobics in the future) Diagnosis: has not changed. Anthropometrics: Resting Metabolic Rate: 2506 Body mass index is 72.1 kg/m . Malnutrition Screening Significant unintentional weight loss? No Eating less than 75% of usual intake for more than 2 weeks? No Nutritional status: Educational materials provided: none this visit READINESS TO LEARN Cognitive ability: Alert and oriented Motivation to learn: Interested Family support: Unable to assess - Family not present Instruction provided to: Patient Patient learns best by: Multiple Methods Factors affecting learning: None Physical limitations affecting learning: None Likelihood of Adherence: Moderate Patient participated in preop bariatric surgery shared nutrition appointment. Patient participated actively in group. Since last assessment Patient reports weight gain of 6 pounds. Diet recall reveals consistent meal pattern with rare missed meals. Meals are generally protein-dense, however some inconsistent carbohydrate intake and potentially calorie-dense snack choices which may be limiting desired weight loss. Utilizing protein shake as meal replacement appropriately. Fluids falling slightlybelow recommendations, however water is primary beverage. Physical activity is consistent and meetslow-end recommendations. Patient reports surgeon has not yet fully decided which type of revision procedure to pursue - potential for full gastrectomy per patient. Patient does meet National Institutes Health guidelines for weight loss surgery, however needs to demonstrate consistent effort in making dietary changes before being cleared for surgery. It is anticipated that the patient will need at least 1 nutritional follow-up visits prior to clearance for surgery. Today is visit #2. Nutrition Diagnosis: Overweight/obesity, related to, food/nutrition - related knowledge deficit, asevidenced by BMI above normative standard for age and gender. Nutrition Intervention: Modify type and amount of intake at meals and snacks 1. Research the post-op vitamin options (can change depending on what procedure is done) Some examples of vitamins/mineral companies: - Bariatric Fusion: 4 Complete Chewable Multivitamins per day (2 in the AM, 2 in the PM) www.bariatricfusion.com - [employer]: 1 Bariatric Multivitamin and Calcium Citrate (total of 1200- 1500 mg/day) * take calcium citrate separately from Multivitamin with iron at least 2 hours apart and 4 hours apart from additional calcium [email or web address] - Bariatric Choice: 4 Complete Multivitamins (chewables) per day [email or web address] - Bariatric Advantage: 2 Multivitamins and 3 Calcium Citrate Chewables per day * take calcium citrate separately from Multivitamin with iron at least 2 hours apart and 4 hours apart from additional calcium [email or web address] 2. Do not skip meals. 3. Use protein shake 1-2x per day to replace any skipped meals or for breakfast 4. Use the Healthy Plate Method of portion control for lunch and dinner 4 oz lean meat (fish, chicken, pork tenderloin, turkey, seafood, eggs/cheese) 1/2 plate non starchy vegetables (salad, greens, cabbage, spinach, brussels sprouts, broccoli, carrots, celery, peppers, green beans, cauliflower) 1 cup starch/starchy vegetables (corn, peas, beans, winter squash, sweet potato, brown rice, whole grain pasta, whole grain bread products, quinoa) 5. Physical activity: Continue to aim for at least 150 minutes per week. Include both cardio and weight resistance. 6. Drink 64 ounces per day water. Fluids should follow these guidelines: No carbonation, no caffeine, no calories, no alcohol. 7. Try the 2 week liquid diet protein shake options Slim Fast Advanced Nutrition OR Light Start [place] Breakfast Essentials mixed with 1% or skim milk OR Atkins Protein Shakes (15 gm protein version) OR Glucose Controlled Boost Pre-op goal weight: 380 pounds - per Dr. Granda Protein needs: 77 gm per day Nutrition Monitoring & Evaluation: 1-2 # weight loss per week prior to surgery Criteria: Weight check Need for Follow up: 1 month, [phone] Group Appointment Start Time: 11:45 AM Group Appointment End Time: 12:29 PM Time Spent on Consult: 44 minutes - Group Signed by: Alex Monsivais RD [facility]* Encounter Date Diagnosis Assessment Notes Treatment Notes Treatment Clinical Notes October, Gastroesophageal ref lux disease, esophagitis presence not specified (ICD-10 - K21.9) [facility] [employer] Other 04-15-2022 Evaluation note* Encounter Date Diagnosis Assessment Notes Treatment Notes Treatment Clinical Notes Sep, Other d/t progessi vely worsening shortness of breath and hypoxia, patient was recommended to go to ER for higher acuity care [facility] [employer] Other 04-07-2022 Evaluation note* Encounter Date Diagnosis Assessment Notes Treatment Notes Treatment Clinical Notes Sep, Cellulitis of left buttock (ICD-10 - L03.317) Discussed diagnosis with patient in detail. Instructed patient to take antibiotic as directed, complete entire course even if feeling better, take with food and plenty of water. Reviewed allergies and recent antibiotic use. Instructed close monitoring of wound. Wound care as discussed. Avoid picking at scab or scrubbing, clean by letting warm soapy water run over. May leave open to air, cover with non-adherent dressing as needed if rubbing on pant leg or draining. Apply Mupirocin as directed. Follow up with PCP in the next 2-3 days. Immediate eval by ER if fever, chills, body aches, increase in swelling or redness, red streaking from wound, pain with ambulation, calf swelling, tenderness, redness warmth, SOB, difficulty breathing, chest pain, or any new or concerning symptoms. Patient verbalizes understanding and is agreeable to treatment plan Sep, Other Cellulitis: [facility] material was printed [facility] Other 04-04-2022 History of Present illness Narrative* 09/30/2021 * 9:15AM * SUSI ORTIZ , 36 year is contacted for an (audio-visual, or audio only) Telehealth visit. * Today's visit was provided through telemedicine conferencing: Using [employer] platform. * Consent: * The concept of telemedicine has been described to the patient. Patient has been informed of the anticipated benefits and possible risks. Patient understands the information provided regarding telemedicine, has had the opportunity to ask questions about this information, and all questions have beenanswered to patient's satisfaction. Patient consents for the use of telemedicine in his/her medicalcare and authorizes the transmission of any relevant medical information to providers and their staff involved in patient's medical or mental health care. * The location of the patient : home * The location of the provider: office * The following staff and their role did participate in today's encounter visit: Prince Horvath MD * HPI * Referred by: Dr. Harley * Accompanied today by: Self * DATE OF COVID VACCINE: 2 doses of Pfizer vaccine * History of present illness: Susi is a 36 year year old female who presents with a cyst on her Right ovary. She reports that she began having pain that occurred daily in December 2020. She reportsthat this pain was located in her right lower quadrant, came and went throughout the day, and was not related to any specific activity. 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 She was taken for surgery at [facility] later that month, and reports that the cyst was unable to be removed, but is uncertain why. U nfortunately the operative report from this procedure is not available today. Susi states that this pain is continued since the time of the surgery, and she still finds it to be bothersome. Records from office notes indicate that tumor markers were negative prior to proceeding with surgery, the patient reports that her cyst has not been imaged since prior to her surgery. * Patient reports that she is not currently sexually active, though she is interested in retaining the ability to become in the future. She currently has a Mirena IUD in place for contraception and to control menses. Menses are not regular with a Mirena in place. She reports menstrual irregul arity prior to Mirena placement, and states that they came monthly, though they would vary in interval length each month. She does report becoming spontaneously in 2007 and 2013, though reports that it took a while to become each time. She did not pursue fertility work-up or treatm ent. The patient also reports having a cyst removed from her right ovary in 2018, which was also performed at [facility]. 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: * History of STI or PID: HPV * Last pap smear: Unknown * History of abnormal paps: Yes * Mammogram: No * Coitus: x/fertile week- N/A * Pelvic pain: Only where the cyst is * Pain with intercourse, bowel movements or full bladder: No * MENSTRUAL HISTORY: * LMP: Mirena, has not had a period in a few years * Menarche: 11 * Contraception: Mirena (Currently) * Cycle length: N/A * Bleeding length: N/A * Heavy bleeding: N/A * Dysmenorrhea: N/A * ENDOCRINE/INFERTILITY HISTORY: * Duration of infertility: N/A * Coital Activity/week: N/A * Nipple Discharge: No * Vision changes / headaches: No * Excess hair growth: No * Acne/oily skin: Acne and oily skin * Recent weight change: No * Exercise: Yes * PMH: Bipolar Depression, Anxiety, gastroesophageal reflux disease * MEDICATION: Carafate, Pepcid, Protonix, Topamax, BuSpar, Abilify * PSH: Splenectomy, Carpal Tunnel both wrists, Gallbladder removed, Back surgery, 2 cyst removals, Gastric sleeve surgery in 2017 (reports that she lost 120 pounds, weight has been stable for approximately 1 year). 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 We are sure that you will still have some additional questions and encourage you to reach out to your care provider via Socialscopet OR your Patient Navigator. Patient Navigators are assigned alphabetically by patient last name. The contact information for each Navigator is listed below. Last names A-E= Malorie Last names F-L = Yoshi Last names M-R= Neida Last names S-Z= Dawson Additionally, you may find many of the answers to your questions in our Guide To Surgery book. Thisbook includes step by step instructions for completing your surgical path and resources for the surgical procedures, medical information, and nutrition/diet information. We would like you to review this book as your providers will refer to information contained in it. For now, please follow the link below to read online version of the book, but next time you have a FACE to FACE visit with one of your providers, please feel free to ask for a hard copy. [email or web address] Once you complete all of the requirements (testing, consultations, diet, etc) from each provider, please call [phone] and select option #5 to initiate insurance approval. Please note scheduling information It is important to keep track of your scheduled appointments to ensure successful completion of oursurgical program. Any missed appointments can further delay your pre-surgical work-up. [facility] does offer an opt-in option for getting text message appointment reminders. Please follow the link below if you would like to opt into this service. [email or web address] As part of your surgical work up, the following tests have been ordered. It will be your responsibility to schedule and complete these tests in order to proceed with your bariatric surgery. Please review the following instructions on how to get your testing scheduled. -EKG -Chest X-ray, - Lab work- fasting (10 hours) -Upper GI -EGD I will help to coordinate this -Provider follow up visit or rescheduling, Please call [phone] OR [phone] Any testing that is completed outside of [facility] will need faxed to [phone]. We look forward to working with you on this journey, Jayshree Huffman APRN.KATTY documented in this encounterC[facility]03-28-[facility]22 History of Present illness Narrative* Jayshree Huffman APRN.CNP - 09/23/2021 11:00 AM EDT BMI Obesity Medicine Initial Bariatric Surgery Consult Virtual visit Virtual Visit (Audio/Visual) I have discussed the nature of this visit with the patient which will occur via Distance [facility] (Phone, Virtual Visit) and she agrees to proceed with this interaction . Patient Summary:: Susi Ortiz is a 36 year old female who presents on September 23, 2021 for surgical evaluation and treatment of obesity. The patient is interested in revision surgery due to severe GERD. Sleeve in 2016 at [facility], in [place]. She is seeking revision due to weight regain and persistentreflux with abdominal pain since 4-5 months post op (2018). She has tried bentyl, PPI's, carafate, pepcid - with all of these, she continues to get breakthrough symptomatic acid reflux. She has to sleep upright. Last EGD was in 2018 Post op complications: within 2 weeks of surgery she was found to have a leak, later developed infections/abcesses. Finally resolved 08/2017. Pre-surgical weight: 388 lbs. Post-surgical weight: down to 275 lbs apx , maintained until 2019, then weight increased after the loss of her Dad, increased stress, depression, also went through otherpersonal stressors that affected weight Weight History: She reports a strong family history of obesity and childhood onset weight gain. Weight goal: Relief of reflux, reduce medications Vitamins: multivitamin Calcium citrate B12 tab Diet: Follows 30-30-30 rule Last few days: B: yogurt or protein shake- premier Snack: cheese or yogurt (low fat/fat free) L: chicken or ham - deli with cheese Snack: none D: mashed potato, beef and noodles beverages: water, tea, shake, skim milk Characterization of diet:Structured and low in vegetables. History of eating disorders: negative Previous Obesity Treatments: commercial diets, self-directed and anti-obesity medications Phentermine. Exercise: Regular exercise: walking - seated exercises Barriers to regular exercise? Back pain Stress test: no Functional Status: Walk a block or two on level ground (2.75 METs) Do moderate work around the house such as vacuuming, sweeping floors, or carrying in groceries (3.50 METs) Patient denies any chest pain or undue shortness of breath with the above physical activity. limited by back pain ?Sleep: TONEY YES ; CPAP YES Quality:adequate, Generally restful Dental Scheduler Work? YES STOP BANG TONEY uses CPAP/BiPAP Past Medical History PAST MEDICAL HISTORY Diagnosis Date Bipolar disorder (HCC) DDD (degenerative disc disease), lumbar Depression Eczema GERD (gastroesophageal reflux disease) Migraine No history of [place], COPD, asthma, peptic ulcer disease, dyslipidemia, hypothyroidism, HTN, cancer, DVT, PE, CVA, T2DM, gout, CKD, Current Outpatient Medications Medication Sig hydrOXYzine pamoate (VISTARIL) 50 mg capsule Take 50 mg by mouth twice daily. sucralfate (CARAFATE) 1 gram tablet Take 1 g by mouth four times daily. DULoxetine (CYMBALTA) 60 mg capsule Take 60 mg by mouth once daily. pantoprazole DR (PROTONIX) 40 mg tablet Take 40 mg by mouth once daily. loratadine (CLARITIN) 10 mg tablet Take 10 mg by mouth once daily. ondansetron orally disintegrating (ZOFRAN ODT) 4 mg disintegrating tablet Take 1 tablet by mouth every 8 hours as needed. oxyCODONE (ROXICODONE) 5 mg/5 mL oral solution Take 5 mL by mouth every 4 hours as needed. methylPREDNISolone (MEDROL, BELÉN,) 4 mg Dose-Pack Take 1 tablet by mouth as directed. As Instructed per package acetaminophen (TYLENOL) 325 mg tablet Take 650 mg by mouth as needed. dicyclomine (BENTYL) 20 mg tablet Take 20 mg by mouth every 6 hours. esomeprazole (NEXIUM) 40 mg capsule Take 40 mg by mouth once daily. fluticasone (FLONASE) 50 mcg/actuation nasal spray Use 2 Sprays in each nostril once daily. cetirizine (ZYRTEC) 10 mg tablet Take 10 mg by mouth once daily. gabapentin (NEURONTIN) 300 mg capsule Take 300 mg by mouth three times daily. mometasone (ELOCON) 0.1 % ointment Apply 1 application to affected area as needed. topiramate (TOPAMAX) 100 mg tablet Take 100 mg by mouth once daily. triamcinolone acetonide (KENALOG) 0.1 % cream Apply 1 application to affected area as needed. VIIBRYD 20 mg Take 20 mg by mouth daily with breakfast. No current facility-administered medications for this visit. ALLERGIES Allergen Reactions Adhes. Diwb-Wtjo-Dp* Rash Adhesive Tape-Silic* Rash Augmentin [Amoxicil* Diarrhea Keflex [Cephalexin] Rash, Itching Penicillins Hives Ultram [Tramadol Hc* Itching PAST SURGICAL HISTORY Procedure Laterality Date CHOLECYSTECTOMY HX 06/29/2007 LAP SLEEVE GASTRECTOMY 2017 NEUROPLASTY &/TRANSPOS MEDIAN NRV CARPAL TUNNE 2008;2009 bilateral S PROBE PERC LUMBAR DISCECTOMY 2011; 2012 L4, L5 and L5 S1 SPLENECTOMY TOTAL SEPARATE PROCEDURE 06/29/2014 Any problems with anesthesia with the above surgeries: No Patient Active Problem List Recurrent tonsillitis Tonsillar enlargement TONEY on CPAP Gastroesophageal reflux disease DDD (degenerative disc disease), lumbar Bipolar affective disorder (HCC) Thrombocytosis Resolved Hospital Problems No resolved problems to display. FAMILY HISTORY Problem Relation Age of Onset Thyroid Mother hypothyrodism Obesity Mother Obesity Father Diabetes Father HTN; Lymphoma Obesity Sister other (Migraines [Other]) Sister Diabetes Paternal Grandmother Stroke Paternal Grandfather None Daughter None Son Diabetes Paternal Uncle Social History Tobacco Use Smoking status: Former Smoker Packs/day: 0.50 Years: 5.00 Pack years: 2.50 Types: Cigarettes Quit date: 12/27/2013 Years since quittin.7 Smokeless tobacco: Never Used Vaping Use Vaping Use: Never used Substance Use Topics Alcohol use: Not Currently Comment: None since 2012 Drug use: Never Review Of Systems Skin: eczema Respiratory: No history of cough, hemoptysis, asthma, recent chest infection, wheezing Cardiovascular: No history of chest pain,palpitation,orthopnea,cynosis,pedel edema Gastrointestinal: No blood in stool, pain with BM, tarry stool, persistent diarrhea or constipation, + Reflux intractable Genitourinary: No burning with urination, blood in urine or incontinence. Hematology/Lymphology Negative for prolonged bleeding, bruising easily or swollen nodes Musculoskeletal: back pain and joint pain knees Psychiatric: sleep disturbance and mood d/o Endocrine: No history of thyroid disorder,diabetes,cold intolerance,heat,intolerance,polydypsia Neuro: No history of syncope, paralysis, seizures or tremors. + hx migraine Physical Exam- video, limited Ht 160 cm (5' 3 ) Wt (!) 165.6 kg (365 lb) LMP 09/24/2015 BMI 64.66 kg/m BMI = Body mass index is 64.66 kg/m . GENERAL: A&O, pleasant,NAD Respiratory: Non labored Neuro: no obvious deficits Impression Susi Ortiz is a 36 year old female with Class III obesity who presented today for medical evaluation as she prepares for possible revision bariatric surgery. She is seeking revision surgery primarily to obtain relief of intractable reflux and abdominal pain. She had a complicated post opcourse with leak discovered, subsequent infection formation and repeat hospital stays. She has the following metabolic complications of obesity obstructive sleep apnea and other medical conditions as noted above. She is a candidate for bariatric and metabolic surgery. she will be evaluated by our multidisciplinary team in preparation for surgery. Pt is aware of post op vitamins and reports good adherence to daily vitamin intake. Plan Based on the severity of her reflux and persistent symptoms, and the resistance of the obesity to more conservative weight loss approaches, and her I believe a surgical intervention is the best and most appropriate intervention. 1. Gastroesophageal reflux disease, unspecified whether esophagitis present - ICD9: 530.81, ICD10: K21.9 (primary diagnosis) - Last EGD in 2018 - intractable reflux and abdominal discomfort - despite maximum therapy - will arrange for EGD with Dr Granda - UGI study ordered 2. Class 3 severe obesity with serious comorbidity and body mass index (BMI) of 60.0 to 69.9 in adult, unspecified obesity type (HCC) - ICD9: 278.01, V85.44, ICD10: E66.01, Z68.44 -We reviewed principles of energy metabolism, caloric intake and expenditure, and rationale for treatment program. We discussed the importance of healthy lifestyle modification. -Reviewed BMI Nutritional Tips for Bariatric Surgery, pt directed to Guide to Surgery booklet -Encouraged the patient to improve physical activity. We discussed the benefits of both cardiovascular and strength exercises. - CBC - COMP METABOLIC PANEL - FERRITIN BLD - FOLATE SERUM - HGB A1C - IRON + TIBC - VITAMIN D 25 HYDROXY - VITAMIN B12 BLOOD - VITAMIN B1 (THIAMINE), WHOLE BLOOD - TSH BLD - TOX SCREEN ROUT UR - PTH INTACT BLD - LIPID PANEL BASIC - NICOTINE & METAB, UR - HCG QUAL UR - ECG COMPLETE - XR CHEST 2V FRONTAL/LAT - XR UPPER GI SINGLE CONTRAST 3. TONEY on CPAP - ICD9: 327.23, V46.8, ICD10: G47.33, Z99.89 - Using it every night, sometimes unable to keep it on all nigh - ECG COMPLETE - XR CHEST 2V FRONTAL/LAT 4. S/P laparoscopic sleeve gastrectomy - ICD9: V45.86, ICD10: Z98.84 Check anatomy: - EGD - XR UPPER GI SINGLE CONTRAST 5. Postoperative malabsorption - ICD9: 579.3, ICD10: K91.2 - adherent with vitamins and is avoiding eating and drinking together - CBC - COMP METABOLIC PANEL - FERRITIN BLD - FOLATE SERUM - HGB A1C - IRON + TIBC - VITAMIN D 25 HYDROXY - VITAMIN B12 BLOOD - VITAMIN B1 (THIAMINE), WHOLE BLOOD - TSH BLD - TOX SCREEN ROUT UR - PTH INTACT BLD - LIPID PANEL BASIC - NICOTINE & METAB, UR - HCG QUAL UR Follow up after testing completed : Recommend that she should not become for 18-24 months after surgery due to increased risks of micronutrient deficiency. I counseled her on the perioperative use of estrogen therapy, instructing her not to take oral estrogen (eg OCPs) one month before and one month after surgery due to increased VTE risk. We reviewed alternate forms of contraception and encouraged the patient to speak with her physician/provider to formulate a perioperative plan. If she is considering a Jayy-en Y gastric bypass, I counseled her that oral methods of control may not be as effective after surgery and that they should consider alternate contraception to reduce the risk of . I spent a total of 54 minutes on the date of the service which included preparing to see the patient, [id number] patient care, completing clinical documentation, obtaining and/or reviewing separately obtained history, counseling and educating the patient/family/caregiver, ordering medications, keli ts, or procedures and communicating with other HCPs (not separately reported). Medical Decision Making Jayshree Huffman APRN.CNP [facility] History and physical note * Humza Walter MD - 05/17/2021 11:00 AM EST BARIATRIC SURGERY NEW PATIENT CONSULTATION HISTORY AND PHYSICAL Date: 05/17/2021 Time: 11:47 AM Name: Susi Ortiz This is a 35 y.o. female with morbid obesity (Body mass index is 68.09 kg/m .) who presents to clinic for follow up of bariatric surgery. She had a sleeve gastrectomy done in 2017 at [facility]. Her preop weight was 380 lbs. Max weight loss was 120-125 lbs post op. She has regained all of herweight - this started when she was caring for her father with cancer, during COVID, and has worsened since her father . She does still feel restriction. She does not exercise. Due to back pain. She only sometimes eats 3meals per day. She most frequently skips breakfast. She snacks sometimes - apple, yogurt, lunch meat. She drinks pop and sweetened tea. Takes a daily multivitamin. She had a leak after her sleeve which was managed by a stent. PMH: severe GERD - worsened after surgery (takes famotidine BID, carafate, dicyclomine, protonix), TONEY (noncompliant with CPAP). 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 Denies smoking/regular EtOH/drug use. No personal/family hx of VTE. The risks of sleeve gastrectomy, Jayy-en-Y gastric bypass, and duodenal switch surgery including bleeding, leak, wound infection, dehydration, ulcers, internal hernia, DVT/PE, prolonged nausea/vomiting, incomplete resolution of associated medical conditions, reflux, weight regain, vitamin/mineral deficiencies, and have been explained to the patient and Susi Ortiz has expressed understanding and acceptance of them. The increased risk of substance and alcohol abuse following bariatric surgery was discussed with the patient, along with the negative consequences of substance/alcohol use after surgery including addiction, worsening of mental health disorders, and injury to the stomach. The risk of smoking and vaping (tobacco or any other substance) after bariatric surgery was explained to the patient. This includes risk of anastamotic ulcers, gastritis, bleeding, perforation, stricture, and PO intolerance. The patient expressed understanding and acceptance of these risks. The patient was advised not to become within 12-18 months following bariatric surgery. Shewas educated on the increased risks to mother and fetus associated with within 2 years ofbariatric surgery. She has an IUD. The benefits of the above surgeries including weight loss, improvement/resolution of associated medical and mental health conditions, improved mobility, and decreased mortality have been explained the the patient and Susi Ortiz has expressed understanding and acceptance of them. PAST MEDICAL HISTORY: Past Medical History: Diagnosis Date Anxiety Bipolar depression Degenerative disc disease, lumbar Sacral as well GERD (gastroesophageal reflux disease) TONEY (obstructive sleep apnea) PAST SURGICAL HISTORY: Past Surgical History: Procedure Laterality Date CHOLECYSTECTOMY GASTRECTOMY LONGITUDINAL (SLEEVE) LAPAROSCOPIC 2016 OVARIAN CYST REMOVAL x2 RELEASE CARPAL TUNNEL Left and Right SPLENECTOMY TONSILLECTOMY FAMILY HISTORY: Family History Problem Relation Age of Onset Other - Specify Mother Cancer- Other Father Diabetes Father Other - Specify Sister SOCIAL HISTORY: Social History Tobacco Use Smoking status: Never Smoker Smokeless tobacco: Never Used Substance Use Topics Alcohol use: Never Drug use: Never MEDICATIONS: Prior to Admission Medications: Current Outpatient Medications Medication Sig Last Dose Start Date End Date Authorizing Provider aripiprazole 5 MG tablet 5 mg, Oral, DAILY AT BEDTIME Taking 04/30/21 Historical Provider busPIRone 15 MG tablet 15 mg, Oral, 2 TIMES DAILY Taking 04/25/21 Historical Provider cetirizine 10 MG tablet 10 mg, Oral, DAILY Taking 04/25/21 Historical Provider DULoxetine [address] Particles capsule DR 60 mg, Oral, 2 TIMES DAILY Taking 04/25/21 Historical Provider faMOTIdine 20 MG tablet 20 mg, Oral, 2 TIMES DAILY Taking 05/13/21 Historical Provider fluticasone 50 MCG/ACT Suspension nasal spray instill 2 (TWO) sprays in EACH nostril DAILY Taking 04/25/21 Historical Provider lamoTRIgine 100 MG tablet 100 mg, Oral, DAILY EVERY MORNING Taking 04/25/21 Historical Provider Multiple Vitamin (Daily-Sandor) tablet 1 tablet, DAILY Taking 04/25/21 Historical Provider Propranolol HCl 60 MG tablet 60 mg, Oral, 2 TIMES DAILY Taking 05/13/21 Historical Provider ALLERGIES: Allergies Allergen Reactions *Adhesive Tape Amoxicillin-Pot Clavulanate Cephalexin Penicillins Tramadol REVIEW OF SYSTEMS: GENERAL: Negative for malaise, significant weight loss and fever HEAD: Negative for headache, swelling. NECK: Negative for lumps, goiter, pain and significant neck swelling RESPIRATORY: Negative for cough, wheezing or shortness of breath. CARDIOVASCULAR: Negative for chest pain, leg swelling or palpitations. GI: Negative for abdominal discomfort, blood in stools or black stools or change in bowel habits : No history of dysuria, frequency or incontinence MUSCULOSKELETAL: Negative for joint pain or swelling, back pain or muscle pain. SKIN: Negative for lesions, rash, and itching. PSYCH: Negative for sleep disturbance, mood disorder and recent psychosocial stressors. ENDOCRINE: Negative for cold or heat intolerance, polyuria, polydipsia and goiter. PHYSICAL EXAM: Visit Vitals BP 133/77 (BP Location: Left arm, BP Position: Sitting) Pulse 75 Temp 96.3 F (35.7 C) (Temporal) Ht 1.6 m (5' 3 ) Wt (!) 174.4 kg (384 lb 6.4 oz) SpO2 95% BMI 68.09 kg/m General appearance: obese, NAD Neuro: AOx3 Head: EOMI; no swelling or lesions of scalp or face ENT: no lumps or lymphadenopathy, thyroid normal to palpation; oropharynx clear, no swelling or erythema Skin: warm, no erythema or rashes Lungs: clear to percussion and auscultation Heart: regular rhythm and S1, S2 normal Abdomen: soft, non-tender, no masses, no organomegaly Extremities: Normal exam of the extremities. No swelling or pain. Psych: no hurried speech, no flight of ideas, normal affect IMPRESSION: Susi Ortiz is a 35 y.o. female with the following diagnosis and co-morbidities: Body mass index is 68.09 kg/m . TONEY on CPAP GERD Diagnosis noted as above, no additional diagnosis at this time. This patient does meet the criteria for a surgical weight loss procedure according to NIH guidelines. PLAN: The plan of treatment for Susi Ortiz is to continue with the consultations and tests ordered today in hopes of qualifying for pre-operative clearance for bariatric surgery. This includes: Consult Nutrition for education and 3 mo SWL Consult Psychology 35 lb weight loss goal Start water aerobics excercise Labs/CXR/EKG ordered EGD with Smith pH probe - refer to Dr Goodrich PCP for medical optimization Consult sleep medicine - concern for TONEY Switch to diet drinks. Patient is interested in: revision of sleeve gastrectomy to RYGB 45 minutes were spent with patient including history, physical exam, and education. Humza Walter MD Bariatric and Minimally Invasive General Surgery documented in this encounterAv[facility] HospitalChief complaint Narrative - Reported* An interactive audio and video telecommunication system which permits real time communications between the patient (at the originating site) and provider (at the distant site) was utilized to providethis telehealth service. * The patient is being seen today for a New Patient Visit regarding Cyst on Right Ovary. [facility] Work Phone: Evaluation note* Diagnosis S/P laparoscopic sleeve gastrectomy- Primary TONEY on CPAP Obstructive sleep apnea (adult) (pediatric) Morbid obesity with body mass index of 50 or higher Gastroesophageal reflux disease, unspecified whether esophagitis present Screening for viral disease Special screening examination for unspecified viral disease Other intestinal malabsorption documented in this encounter [facility]* Diagnosis Gastroesophageal reflux disease, unspecified whether esophagitis present- Primary Class 3 severe obesity with serious comorbidity and body mass index (BMI) of 60.0 to 69.9 in adult, unspecified obesity type (HCC) TONEY on CPAP Obstructive sleep apnea (adult) (pediatric) S/P laparoscopic sleeve gastrectomy Bariatric surgery status Postoperative malabsorption Other and unspecified postsurgical nonabsorption [facility]* Diagnosis Dysphagia, unspecified type- Primary Gastroesophageal reflux disease, unspecified whether esophagitis present History of sleeve gastrectomy [facility]* Diagnosis History of sleeve gastrectomy- Primary BMI 70 and over, adult (HCC) Body Mass Index 70 and over, adult Dietary counseling and surveillance Dietary surveillance and counseling [facility]* Diagnosis History of sleeve gastrectomy- Primary Gastric fistula Fistula of stomach or duodenum documented [facility] this encounter [facility]* Diagnosis NO SHOW- Primary documented [facility]* Diagnosis TONEY on CPAP Obstructive sleep apnea (adult) (pediatric) Gastroesophageal reflux disease, unspecified whether esophagitis present S/P laparoscopic sleeve gastrectomy Bariatric surgery status documented [facility]No InformationN[facility] [place] Other Evaluation note* Diagnosis Gastroesophageal reflux disease, unspecified whether esophagitis present- Primary BMI 70 and over, adult (HCC) Body Mass Index 70 and over, adult History of sleeve gastrectomy Dietary counseling and surveillance Dietary surveillance and counseling documented in this encounter [facility] note* Diagnosis Epigastric pain- Primary Abdominal pain, epigastric Gastroesophageal reflux disease without esophagitis Esophageal reflux History of sleeve gastrectomy documented in this encounter [facility] note* Diagnosis History of sleeve gastrectomy Gastric fistula Fistula of stomach or duodenum documented in this encounter [facility] note* Diagnosis NO SHOW- Primary documented in this encounter [facility] note* Diagnosis History of sleeve gastrectomy- Primary documented in this encounter [facility] noteNo assessment information [facility] Work Phone: Evaluation note* Diagnosis Gastroesophageal reflux disease, unspecified whether esophagitis present- Primary BMI 70 and over, adult (HCC) Body Mass Index 70 and over, adult documented in this encounter [facility] note* Diagnosis Morbid obesity with body mass index of 60.0-69.9 in adult (HCC)- Primary Morbid obesity Gastroesophageal reflux disease, unspecified whether esophagitis present BMI 70 and over, adult (HCC) Body Mass Index 70 and over, adult Gastroesophageal reflux disease, unspecified whether esophagitis present documented in this encounter [facility] note* Diagnosis Morbid obesity with body mass index of 60.0-69.9 in adult (HCC)- Primary Morbid obesity documented in this encounter [facility] note* Diagnosis Weight disorder- Primary Other symptoms concerning nutrition, metabolism, and development BMI 70 and over, adult (HCC) Body Mass Index 70 and over, adult Preop testing Preoperative examination, unspecified Abnormal weight gain Snoring Other dyspnea and respiratory abnormality Sleep-disordered breathing Other sleep disturbances Fatigue, unspecified type S/P bariatric surgery Bariatric surgery status documented in this encounter [facility] note* Diagnosis Morbid obesity with BMI of 70 and over, adult (HCC)- Primary Morbid obesity documented in this encounter [facility] note* Diagnosis S/P gastric sleeve procedure- Primary Weight gain following gastric bypass surgery BMI 60.0-69.9, adult ([facility]) Body Mass Index 60.0-69.9, adult Dietary counseling and surveillance Dietary surveillance and counseling documented in this encounter [facility] note* Diagnosis Weight gain following gastric bypass surgery- Primary Abnormal weight gain Preop testing Preoperative examination, unspecified Snoring Other dyspnea and respiratory abnormality Sleep-disordered breathing Other sleep disturbances Fatigue, unspecified type S/P bariatric surgery Bariatric surgery status S/P gastric sleeve procedure Dietary counseling and surveillance Dietary surveillance and counseling BMI 60.0-69.9, adult ([facility]) Body Mass Index 60.0-69.9, adult documented in this encounter [facility] note* Diagnosis Pre-op evaluation- Primary Preoperative examination, unspecified Morbid obesity with body mass index of 60.0-69.9 in adult ([facility]) Morbid obesity Gastroesophageal reflux disease, unspecified whether esophagitis present TONEY on CPAP Obstructive sleep apnea (adult) (pediatric) Bipolar affective disorder, remission status unspecified ([facility]) Thrombocytosis Essential thrombocythemia Migraine without status migrainosus, not intractable, unspecified migraine type documented in this encounter [facility] note* Diagnosis Patient left without being seen- Primary Surgical or other procedure not carried out because of patient's decision documented in this encounter [facility] note* Diagnosis S/P gastrointestinal surgery, follow-up exam- Primary Follow-up examination, following other surgery Status post biliopancreatic diversion with duodenal switch Post-operative nausea and vomiting Nausea with vomiting documented in this encounter [facility] note* Diagnosis Impaired intestinal absorption- Primary Unspecified intestinal malabsorption S/P biliopancreatic diversion with duodenal switch Class 3 severe obesity with body mass index (BMI) of 60.0 to 69.9 in adult, unspecified obesity type, unspecified whether serious comorbidity present ([facility]) Dietary counseling and surveillance Dietary surveillance and counseling documented in this encounter [facility] note* Diagnosis S/P bariatric surgery- Primary Bariatric surgery status Body mass index (BMI) 60.0-69.9, adult ([facility]) Dietary counseling and surveillance Dietary surveillance and counseling documented in this encounter [facility] note* Diagnosis S/P gastrointestinal surgery, follow-up exam- Primary Follow-up examination, following other surgery S/P biliopancreatic diversion with duodenal switch Open abdominal incision with drainage, subsequent encounter Impaired intestinal absorption Unspecified intestinal malabsorption Class 3 severe obesity with body mass index (BMI) of 60.0 to 69.9 in adult, unspecified obesity type, unspecified whether serious comorbidity present (HCC) documented in this encounter [facility] general Narrative - Reported* Type Description Date Medical History GERD Medical History depression Medical History bi-polar Medical History herniated disc Medical History pituitary microadenoma 3 mm Medical History migraines Medical History Fibromyalgia Surgical History cholecystectomy 2008 Surgical History Procedure:Carpal Tunnel 2008, 2 010 Surgical History bilat carpal tunnel Surgical History Procedure:Gall Bladder 2008 Surgical History diskectomy x's 2 Surgical History Procedure:Back surgery Surgical History spleenectomy 11/06/2014 Surgical History splenectomy 11/06/2014 Surgical History tonsillectomy Surgical History tonsillectomy 10/08/2015 Surgical History gastric sleeve Surgical History Gastric Sleeve 05/2017 Surgical History cyst removed from right ovary. Hospitalization History [facility]ILD X'S 2 Hospitalization History SEE ABOVE SURGERY iOculi Other History general Narrative - Reported* Type Description Date Medical History GERD Medical History depression Medical History bi-polar Medical History herniated disc Medical History pituitary microadenoma 3 mm Medical History migraines Medical History Fibromyalgia Surgical History cholecystectomy 2008 Surgical History bilat carpal tunnel Surgical History Procedure:Gall Bladder 2008 Surgical History diskectomy x's 2 Surgical History Procedure:Back surgery Surgical History 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 Hospitalization History [facility]ILD X'S 2 Hospitalization History SEE ABOVE SURGERY iOculi Other Reason for referral (narrative)* Diagnostic Procedure Only (Routine) - Pending Review Specialty Diagnoses / Procedures Referred By Tiarra t Referred To Contact XR IMAGING Diagnoses Gastroesophageal reflux disease, unspecified whether esophagitis present S/P laparoscopic sleeve gastrectomy Class 3 severe obesity with serious comorbidity and body mass index (BMI) of 60.0 to 69.9 in adult, unspecified obesity type (HCC) Procedures XR UPPER GI SINGLE CONTRAST RADIOLOGIC EXAM UPR GI TRC SINGLE CONTRAST STUDY Jayshree Huffman, REY.PRE SALES TECHNICAL CONSULTANT [address] [place] [address] Xr Imaging Referral ID Status Reason Start Date Expiration Date Visits Requested Visits Authorized [id number] Pending Review Auto-Generat ed Referral 09/23/2021 10/23/2022 1 1 * Outpatient Procedure (Routine) - Pending Review Specialty Diagnoses / Procedures Referred By Tiarra somers Referred To Contact [facility] [place] Diagnoses TONEY on CPAP Gastroesophageal reflux disease, unspecified whether esophagitis present Class 3 severe obesity with serious comorbidity and body mass index (BMI) of 60.0 to 69.9 in adult, unspecified obesity type (HCC) Postoperative malabsorption Procedures ECG COMPLETE ECG ROUTINE ECG W/LEAST 12 LDS W/I&R Jayshree Huffman APRN.CNP [address] [place] [address] [facility] [address] [address] Referral ID Status Reason Start Date Expiration Date Visits Requested Visits Authorized [id number] Pending Review Auto-Generat ed Referral 09/23/2021 09/23/2022 1 1 [facility] for referral (narrative)* Outpatient Procedure (Routine) - Closed Specialty Diagnoses / Procedures Referred By Tiarra somers Referred To Contact [facility] Diagnoses TONEY on CPAP Gastroesophageal reflux disease, unspecified whether esophagitis present S/P laparoscopic sleeve gastrectomy Procedures EGD DIAGNOSTIC ESOPHAGOGASTRODUODENOSCO PY TRANSORAL DIAGNOSTIC Jayshree Huffman APRN.PRE SALES TECHNICAL CONSULTANT [address] [facility] [place] [address] [facility] [place] [address] [place] [address] Referral ID Status Reason Start Date Expiration Date V isits Requested Visits Authorized [id number] Closed Auto-Generate d Referral 09/24/2021 09/24/2022 1 1 [facility] for referral (narrative)* Outpatient Procedure (Routine) - Pending Review Specialty Diagnoses / Procedures Referred By Contac t Referred To Contact [facility] [place] Diagnoses Abnormal weight gain Preop testing Snoring Sleep-disordered breathing Fatigue, unspecified type S/P bariatric surgery BMI 70 and over, adult ([facility]) Procedures ECG COMPLETE ECG ROUTINE ECG W/LEAST 12 LDS W/I&R Amina Nieto MD [address] [place] [address] [facility] [place] [address] [place] [address] Referral ID Status Reason Start Date Expiration Date Visits Requested Visits Authorized [id number] Pending Review Auto-Generat ed Referral 06/04/2022 05/31/2023 1 1 * Consult, Test, Treat (Routine) - Authorized Specialty Diagnoses / Procedures Referred By Tiarra somers Referred To Contact Diagnoses Abnormal weight gain Preop testing Snoring Sleep-disordered breathing Fatigue, unspecified type S/P bariatric surgery BMI 70 and over, adult ([facility]) Procedures CONSULT TO SLEEP MEDICINE - ADULT OFFICE/OUTPATIENT [facility] MDM 60-74 MINUTES Amina Nieto MD [address] [place] [address] Referral ID Status Reason Start Date Expiration Date Visits Requested Visits Authorized [id number] Authorized PCP Requested Referral 06/04/2022 05/31/2023 1 1 [facility] for referral (narrative)* Outpatient Procedure (Routine) - Pending Review Specialty Diagnoses / Procedures Referred By Contraymond t Referred To Contact [facility] [place] Diagnoses Pre-op evaluation Morbid obesity with body mass index of 60.0-69.9 in adult ([facility]) Gastroesophageal reflux disease, unspecified whether esophagitis present TONEY on CPAP Bipolar affective disorder, remission status unspecified ([facility]) Thrombocytosis Migraine without status migrainosus, not intractable, unspecified migraine type Procedures ECG COMPLETE ECG ROUTINE ECG W/LEAST 12 LDS W/I&R Shruti Alvarado, PRODUCTION TROUBLESHOOTER.PRE SALES TECHNICAL CONSULTANT [address] [place] [address] [facility] [address] [place] [address] Referral ID Status Reason Start Date Expiration Date Visits Requested Visits Authorized [id number] Pending Review Auto-Generat ed Referral 03/10/2023 03/09/2024 1 1 [facility] for visit Narrative* Outpatient Procedure (Routine) - Closed Specialty Diagnoses / Procedures Referred By Tiarra t Referred To Contact [facility] Diagnoses TONEY on CPAP Gastroesophageal reflux disease, unspecified whether esophagitis present S/P laparoscopic sleeve gastrectomy Procedures EGD DIAGNOSTIC ESOPHAGOGASTRODUODENOSCO PY TRANSORAL DIAGNOSTIC Jayshree Huffman APRN.CNP [address] [place] [address] [facility] [address] [place] [address] Referral ID Status Reason Start Date Expiration Date V isits Requested Visits Authorized [id number] Closed Auto-Generate d Referral 09/24/2021 09/24/2022 1 1 [facility] Summary Purpose Family History No Family History Records FoundNo Family History Records FoundNo Family History Records FoundNo Family History Records FoundNo Family History Records FoundNo Family History Records FoundNo Family History Records FoundNo Family History Records FoundNo Family History Records FoundNo Family History Records FoundNo Family History Records FoundNo Family History Records Found Advance Directives No Advanced Directives Records FoundDocuments on File Type Date Recorded 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 ACP-Advance Directive ACP-Power of Etl Software Engineer Latest Code Status on File Code Status Date Activated Date Inactivated Comments Full Code 01/16/2017 11:20 PM 01/21/2017 5:23 PM Documents on File Type Date Recorded 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 ACP-Advance Directive ACP-Power of Etl Software Engineer Latest Code Status on File Code Status Date Activated Date Inactivated Comments Full Code 01/16/2017 11:20 PM 01/21/2017 5:23 PM Documents on File Type Date Recorded 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 anation Advance Directive(s) 10/04/2015 12:43 PM Advance Directive(s) 09/25/2015 12:29 PM Documents on File Type Date Recorded 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 anation Advance Directive(s) 10/04/2015 12:43 PM Advance Directive(s) 09/25/2015 12:29 PM Advance Directive Response Recorded Date/ Time Advance Directives No October 07, 2 019 3:58pm Reason for Referral Status Reason Specialty Diagnoses / Procedures Referre d By Contact Referred To Contact Open Radiology Diagnoses S/P laparoscopic sleeve gastrectomy Procedures FL UGI FL UGI Shaylee Miles, DO [address] [place] [address] Specialty Diagnoses / Procedures Referred By Contac t Referred To Contact Diagnoses S/P laparoscopic sleeve gastrectomy Gastroesophageal reflux disease, unspecified whether esophagitis present Procedures XR FLUORO UPPER GI, WATER SOLUBLE AND/OR BARIUM CONTRAST Humza Walter MD [address] [place] [address] Referral ID Status Reason Start Date Expiration Date V isits Requested Visits Authorized [id number] Auth Not Needed 05/17/2021 06/11/2022 1 1 Specialty Diagnoses / Procedures Referred By Contac t Referred To Contact Diagnoses S/P laparoscopic sleeve gastrectomy TONEY on CPAP Morbid obesity with body mass index of 50 or higher Gastroesophageal reflux disease, unspecified whether esophagitis present Other intestinal malabsorption Procedures ECG Humza Walter MD [address] [place] [address] Referral ID Status Reason Start Date Expiration Date V isits Requested Visits Authorized [id number] New Request 05/17/2021 06/11/2022 1 1 Specialty Diagnoses / Procedures Referred By Contac t Referred To Contact Psychology Diagnoses S/P laparoscopic sleeve gastrectomy TONEY on CPAP Morbid obesity with body mass index of 50 or higher Gastroesophageal reflux disease, unspecified whether esophagitis present Other intestinal malabsorption Humza Walter MD [address] [place] [address] Referral ID Status Reason Start Date Expiration Date V isits Requested Visits Authorized [id number] New Request 05/17/2021 06/11/2022 1 1 Specialty Diagnoses / Procedures Referred By Contac t Referred To Contact Nutrition and Dietetics Diagnoses S/P laparoscopic sleeve gastrectomy TONEY on CPAP Morbid obesity with body mass index of 50 or higher Gastroesophageal reflux disease, unspecified whether esophagitis present Other intestinal malabsorption Humza Walter MD [address] [place] [address] Referral ID Status Reason Start Date Expiration Date V isits Requested Visits Authorized [id number] New Request 05/17/2021 06/11/2022 1 1 Specialty Diagnoses / Procedures Referred By Contac t Referred To Contact CT IMAGING Diagnoses History of sleeve gastrectomy Gastric fistula Procedures CT ABD/PEL W IVCON CT ABD & PEL[place] [address] [place] [address] Ct Imaging Referral ID Status Reason Start Date Expiration Date Visits Requested Visits Authorized [id number] Pending Review Auto-Generat ed Referral 11/04/2021 12/04/2022 1 1 Specialty Diagnoses / Procedures Referred By Contac t Referred To Contact XR IMAGING Diagnoses History of sleeve gastrectomy Gastric fistula Procedures XR UPPER GI SINGLE CONTRAST RADIOLOGIC EXAM [facility] GI TR[place] [address] [place] [address] Xr Imaging Referral ID Status Reason Start Date Expiration Date Visits Requested Visits Authorized [id number] Pending Review Auto-Generat ed Referral 11/04/2021 12/04/2022 1 1 Referral ID Status Reason Start Date Expiration Date V isits Requested Visits Authorized [id number] Closed Auto-Generate d Referral 01/05/2022 06/28/2022 2 2 Specialty Diagnoses / Procedures Referred By Contac t Referred To Contact Diagnoses BMI 70 and over, adult (HCC) Gastroesophageal reflux disease, unspecified whether esophagitis present Procedures IN PERSON CONSULT TO PACC Jayshree Huffman APRN.PRE SALES TECHNICAL CONSULTANT [address] [place] [address] Referral ID Status Reason Start Date Expiration Date Visits Requested Visits Authorized [id number] Ref Not Required PCP Requested Referral 2 07/17/2022 1 1 Discharge Instructions * Instructions* Shaylee Miles, DO - 04/06/2020 POST-ENDOSCOPY INSTRUCTIONS 1. ACTIVITY No driving, operating machinery, or making important decisions for 24 hours. Resume normal activity after 24 hours. You may return to work after 24 hours. 2. DIET EGD: Resume your usual diet unless specified below. Diet Modification: Regularr 3. MEDICATIONS (Do not consume alcohol, tranquilizers, or sleeping medications for 24 hours unless advised by your physician) Resume your usual medications 4. PHYSICIAN FOLLOW-UP Please continue with your previously scheduled appointments See your primary care physician as planned. 6. NORMAL CHANGES YOU MAY EXPERIENCE AFTER ENDOSCOPY: EGD: Sore throat, some abdominal pain and cramping. 7. CALL YOUR PHYSICIAN IF YOU EXPERIENCE ANY OF THE FOLLOWING A. Passing blood rectally or vomiting blood (color may be red or black) B. Severe abdominal pain or tenderness (that is not relieved by passing air) C. Fever, chills, or excessive sweating D. Persistent nausea or vomiting E. Redness or swelling at the IV site If you have additional questions, PLEASE call your doctor or the [facility] at documented in this encounter Assessments Diagnosis S/P laparoscopic sleeve gastrectomy Diagnosis Preop testing Preoperative examination, unspecified Medications Administered Section Administered Medications Medication Order MAR Action Action Date Dose Rate Site tuberculin skin test (TST-PPD), purified protein derivative, intradermal Intramuscular Given 01/02/2020 Right Lower Fo rearm tuberculin skin test (TST-PPD), purified protein derivative, intradermal Intramuscular Given 12/26/2019 Left Lower For earm Additional Source Comments INFORMATION SOURCE (unrecogn ized section and content) DATE CREATED AUTHOR 12/23/2017 [facility] DATE CREATED AUTHOR AUTHOR'S ORGANIZ ATION 03/29/2020 [facility] DATE CREATED AUTHOR AUTHOR'S ORGANIZ ATION 04/07/2020 [facility] DATE CREATED AUTHOR AUTHOR'S ORGANIZ ATION 04/11/2020 [facility] DATE CREATED AUTHOR AUTHOR'S ORGANIZ ATION 10/01/2021 [facility] DATE CREATED AUTHOR AUTHOR'S ORGANIZ ATION 12/11/2021 [facility] DATE CREATED AUTHOR AUTHOR'S ORGANIZ ATION 02/19/2022 [facility] DATE CREATED AUTHOR AUTHOR'S ORGANIZ ATION 11/07/2022 [facility] DATE CREATED AUTHOR AUTHOR'S ORGANIZ ATION 12/15/2022 [facility] DATE CREATED AUTHOR AUTHOR'S ORGANIZ ATION 08/18/2023 [facility] DATE CREATED AUTHOR AUTHOR'S ORGANIZ ATION 09/07/2023 [facility] DATE CREATED AUTHOR AUTHOR'S ORGANIZ ATION 10/14/2023 [facility] EPIC Reason for Visit (unrecogniz ed section and content) Status Reason Specialty Diagnoses / Procedures Re ferred By Contact Referred To Contact Diagnoses Obesity OBESITY Procedures MA ESOPHAGOGASTRODUODENOSCOPY TRANSORAL DIAGNOSTIC EGD ESOPHAGOGASTRODUODENOSCOPY Kylah Vargas, DO [address] [facility] [address] [place] [address] [facility] Reason Comments Consult Est Care/Revision/ S leeve 05/2017 Reason Comments Obesity GERD Reason Onset Date Comments Reassessment 11/04/2021 Patient Education 11/04/2021 Reason Comments New Patient Reason Comments No Show Reason Onset Date Comments Reassessment 01/17/2022 Patient Education 01/17/2022 Specialty Diagnoses / Procedures Referred By Tiarra somers Referred To Contact Nutrition / GENERAL SURGERY Diagnoses Follow-up exam OrangePurple/0 diet/[place] LSG-complications gerd Procedures PHYS/QHP TELEPHONE EVALUATION 5-10 MIN VIDEO GROUP (ZOOM) MD Yodit Jason Erin, RD [address] [place] [address] Referral ID Status Reason Start Date Expiration Date Visits Re quested Visits Authorized [id number] Closed 01/17/2022 06/28/2022 1 1 Reason Comments Obesity Specialty Diagnoses / Procedures Referred By Tiarra somers Referred To Contact General Surgery / GENERAL SURGERY Diagnoses Follow-up exam imaging follow up Procedures PHYS/QHP TELEPHONE EVALUATION 5-10 [place] [address] [place] [address] [place] [address] [place] [address] Referral ID Status Reason Start Date Expiration Date Visits Re quested Visits Authorized [id number] Closed 01/20/2022 06/28/2022 1 1 Specialty Diagnoses / Procedures Referred By Contac t Referred To Contact CT IMAGING Diagnoses History of sleeve gastrectomy Gastric fistula Procedures CT ABD/PEL W IVCON CT ABD & PELVIS W/[place] [address] [place] [address] Ct Imaging Referral ID Status Reason Start Date Expiration Date V isits Requested Visits Authorized [id number] Closed Auto-Generate d Referral 01/05/2022 06/28/2022 2 2 Reason Comments No Show Reason Comments Schedule Surgery Laparoscopic partial gastrectomy with gastrojejunostomy Reason Comments 06/10/2022 Laparoscopic partial gastrectomy with gastrojejunostomy Reason Comments GERD Reason Comments Patient Update Change in surgery ty pe Reason Comments Patient Question Reason Comments Insurance Authorization Not Real Surgery Date Reason Comments Patient Education Reassessment Reason Comments Schedule Surgery DS Reason Comments Reassessment Patient Education Specialty Diagnoses / Procedures Referred By Contac t Referred To Contact Diagnoses Abnormal weight gain Preop testing Snoring Sleep-disordered breathing Fatigue, unspecified type S/P bariatric surgery BMI 70 and over, adult (HCC) Procedures CONSULT TO SLEEP MEDICINE - ADULT OFFICE/OUTPATIENT [facility] 60-74 MINUTES Amina Nieto MD [address] [place] [address] Referral ID Status Reason Start Date Expiration Date V isits Requested Visits Authorized [id number] Closed PCP Requested Referral 06/04/2022 05/31/2023 1 1 Reason Comments Anesthesia Consult Specialty Diagnoses / Procedures [facility]erred To Contact ANESTHESIOLOGY Diagnoses Preop examination Procedures PREOP ANES OR PROXY B/4 SURG Joe Granda MD [address] [place] [address] Pre Anes [address] [place] [id number] Referral ID Status Reason Start Date Expiration Date V isits Requested Visits Authorized [id number] Authorized 06/29/2022 06/28/2023 99 99 Reason Comments Patient Left Without Being Seen Specialty Diagnoses / Procedures Referred By Contac t Referred To Contact ANESTHESIOLOGY Diagnoses Preop examination Procedures PREOP ANES OR PROXY SURG Joe Granda MD [address] [place] [address] Pre [address] [place] [address] Reason Comments Post Op Reason Comments Post Op 7-10 day gastrectomy Care Teams (unrecognized sec tion and content) Group Leader Relationship Specialty Start Date End Date Kaylin SimentaltyDO [address] [place] [address] PCP - General Family Medicine 03/21/21 Group Leader Relationship Specialty Start Date End Date Geneva Estrada, PRE SALES TECHNICAL CONSULTANT [address] [place] [address] PCP - General Family Practice 10/01/11 Group Leader Relationship Specialty Start Date End Date LucasGeneva mauro, PRE SALES TECHNICAL CONSULTANT [address] [place] [address] PCP - General Family Practice 10/01/11 Group Leader Relationship Specialty Start Date End Date LucasGeneva mauro, PRE SALES TECHNICAL CONSULTANT [address] [place] [address] PCP - General Family Practice 10/01/11 Group Leader Relationship Specialty Start Date End Date Geneva Estrada, PRE SALES TECHNICAL CONSULTANT [address] [place] [address] PCP - General Family Practice 10/01/11 Group Leader Relationship Specialty Start Date End Date Geneva Estrada, PRE SALES TECHNICAL CONSULTANT [address] [place] [address] PCP - General Family Practice 10/01/11 Group Leader Relationship Specialty Start Date End Date [facility] PRE SALES TECHNICAL CONSULTANT [address] [place] [address] PCP - General Family Practice 10/01/11 Group Leader Relationship Specialty Start Date End Date [facility] whit[facility], PRE SALES TECHNICAL CONSULTANT [address] [place] [address] PCP - General Family Practice 10/01/11 Group Leader Relationship Specialty Start Date End Date [facility], PRE SALES TECHNICAL CONSULTANT [address] [place] [address] PCP - General Family Practice 10/01/11 Group Leader Relationship Specialty Start Date End Date Geneva Estrada, PRE SALES TECHNICAL CONSULTANT [address] [place] [address] PCP - General Family Practice 10/01/11 Group Leader Relationship Specialty Start Date End Date Geneva Estrada, PRE SALES TECHNICAL CONSULTANT [address] [place] [address] PCP - General Family Practice 10/01/11 Group Leader Relationship Specialty Start Date End Date Geneva Estrada, PRE SALES TECHNICAL CONSULTANT [address] [place] [address] PCP - General Family Practice 10/01/11 Group Leader Relationship Specialty Start Date End Date Geneva Estrada, PRE SALES TECHNICAL CONSULTANT [address] [place] [address] PCP - General Family Medicine 10/01/11 Team Status: Inactive Member Role Status Dates NON STAFF Primary Care Provider Active ROBERT Monteiro Attending Provider Active Team Status: Active Member Role Status Dates NON STAFF Primary Care Provider Active Group Leader Relationship Specialty Start Date End Date Rumschlaroro, Elizabet [address] [place] [address] PCP - General Family Medicine 04/16/22 Group Leader Relationship Specialty Start Date End Date Rumschlaroro Elizabet [address] [place] [address] PCP - General Family Medicine 04/16/22 Group Leader Relationship Specialty Start Date End Date Rumschlaroro Elizabet [address] [place] [address] PCP - General Family Medicine 04/16/22 Group Leader Relationship Specialty Start Date End Date RumKaylin gandaraty [address] [place], [place] [address] PCP - General Family Medicine 04/16/22 Group Leader Relationship Specialty Start Date End Date Rumjuliocesar Elizabet [address] [place], [place] [address] PCP - General Family Medicine 04/16/22 Group Leader Relationship Specialty Start Date End Date Kaylin Simentalty [address] [place] [address] PCP - General Family Medicine 04/16/22 Group Leader Relationship Specialty Start Date End Date RumKaylin gandaraty [address] [place] [address] PCP - General Family Medicine 04/16/22 Group Leader Relationship Specialty Start Date End Date Rumschmendy Elizabet [address] [place], [place] [address] PCP - General Family Medicine 04/16/22 Group Leader Relationship Specialty Start Date End Date Elizabet Simental [address] [place] [address] PCP - General Family Medicine 04/16/22 Group Leader Relationship Specialty Start Date End Date Rumschlag, Elizabet [address] [place] [address] PCP - General Family Medicine 04/16/22 Group Leader Relationship Specialty Start Date End Date Rumschlag, Elizabet [address] [place] [address] PCP - General Family Medicine 04/16/22 Group Leader Relationship Specialty Start Date End Date Rumschlag, Elizabet [address] [place] [address] PCP - General Family Medicine 04/16/22 Group Leader Relationship Specialty Start Date End Date Rumschlag, Elizabet [address] [place] [address] PCP - General Family Medicine 04/16/22 Group Leader Relationship Specialty Start Date End Date Rumschlag Elizabet, DO [address] [place] [address] PCP - General Family Medicine 04/16/22 Group Leader Relationship Specialty Start Date End Date Rumschlag, Elizabet, DO [address] [place] [address] PCP - General Family Medicine 04/16/22 Group Leader Relationship Specialty Start Date End Date Rumschlag, Elizabet, DO [address] [place] [address] PCP - General Family Medicine 04/16/22 Group Leader Relationship Specialty Start Date End Date Rumschlag, Elizabet, DO [address] [place] [address] PCP - General Family Medicine 04/16/22 Group Leader Relationship Specialty Start Date End Date Elizabet Simental DO [address] [place] [address] PCP - General Family Medicine 04/16/22 Group Leader Relationship Specialty Start Date End Date Elizabet Simental DO [address] [place] [id number] PCP - General Family Medicine 04/16/22 Source Comments (unrecognize d section and content) In the event this informatio n is protected by the Federal Confidentiality of Alcohol and Drug Abuse Patient Records regulations: The Federal rules restrict any use of the information to criminally investigate or prosecute any alcohol or drug abuse patient.[facility] the event this information is protected by the Federal Confidentiality of Alcohol and Drug Abuse Patient Records regulations: The Federal rules restrict any use of the information to criminally investigate or prosecute any alcohol or drug abuse patient.[facility] Hospital[facility] the event this information is protected by the Federal Confidentiality of Alcohol and Drug Abuse Patient Records regulations: The Federal rules restrict any use of the information to criminally investigate or prosecute any alcohol or drug abuse patient.[facility] Hospital[facility] the event this information is protected by the Federal Confidentiality of Alcohol and Drug Abuse Patient Records regulations: The Federal rules restrict any use of the information to criminally investigate or prosecute any alcohol or drug abuse patient.[facility] HospitalIn the event this information is protected by the Federal Confidentiality of Alcohol and Drug Abuse Patient Records regulations: The Federal rules restrict any use of the information to criminally investigate or prosecute any alcohol or drug abuse patient.[facility] Hospital[facility] the event this information is protected by the Federal Confidentiality of Alcohol and Drug Abuse Patient Records regulations: The Federal rules restrict any use of the information to criminally investigate or prosecute any alcohol or drug abuse patient.[facility] Hospital[facility] the event this information is protected by the Federal Confidentiality of Alcohol and Drug Abuse Patient Records regulations: The Federal rules restrict any use of the information to criminally investigate or prosecute any alcohol or drug abuse patient.[facility] Hospital[facility] the event this information is protected by the Federal Confidentiality of Alcohol and Drug Abuse Patient Records regulations: The Federal rules restrict any use of the information to criminally investigate or prosecute any alcohol or drug abuse patient.[facility] Hospital[facility] the event this information is protected by the Federal Confidentiality of Alcohol and Drug Abuse Patient Records regulations: The Federal rules restrict any use of the information to criminally investigate or prosecute any alcohol or drug abuse patient.[facility] HospitalIn the event this information is protected by the Federal Confidentiality of Alcohol and Drug Abuse Patient Records regulations: The Federal rules restrict any use of the information to criminally investigate or prosecute any alcohol or drug abuse patient.[facility] HospitalIn the event this information is protected by the Federal Confidentiality of Alcohol and Drug Abuse Patient Records regulations: The Federal rules restrict any use of the information to criminally investigate or prosecute any alcohol or drug abuse patient.[facility] HospitalIn the event this information is protected by the Federal Confidentiality of Alcohol and Drug Abuse Patient Records regulations: The Federal rules restrict any use of the information to criminally investigate or prosecute any alcohol or drug abuse patient.[facility] HospitalIn the event this information is protected by the Federal Confidentiality of Alcohol and Drug Abuse Patient Records regulations: The Federal rules restrict any use of the information to criminally investigate or prosecute any alcohol or drug abuse patient.[facility] HospitalIn the event this information is protected by the Federal Confidentiality of Alcohol and Drug Abuse Patient Records regulations: The Federal rules restrict any use of the information to criminally investigate or prosecute any alcohol or drug abuse patient.[facility] HospitalIn the event this information is protected by the Federal Confidentiality of Alcohol and Drug Abuse Patient Records regulations: The Federal rules restrict any use of the information to criminally investigate or prosecute any alcohol or drug abuse patient.[facility] HospitalIn the event this information is protected by the Federal Confidentiality of Alcohol and Drug Abuse Patient Records regulations: The Federal rules restrict any use of the information to criminally investigate or prosecute any alcohol or drug abuse patient.[facility] HospitalIn the event this information is protected by the Federal Confidentiality of Alcohol and Drug Abuse Patient Records regulations: The Federal rules restrict any use of the information to criminally investigate or prosecute any alcohol or drug abuse patient.[facility] HospitalIn the event this information is protected by the Federal Confidentiality of Alcohol and Drug Abuse Patient Records regulations: The Federal rules restrict any use of the information to criminally investigate or prosecute any alcohol or drug abuse patient.[facility] HospitalIn the event this information is protected by the Federal Confidentiality of Alcohol and Drug Abuse Patient Records regulations: The Federal rules restrict any use of the information to criminally investigate or prosecute any alcohol or drug abuse patient.[facility] HospitalIn the event this information is protected by the Federal Confidentiality of Alcohol and Drug Abuse Patient Records regulations: The Federal rules restrict any use of the information to criminally investigate or prosecute any alcohol or drug abuse patient.[facility] HospitalIn the event this information is protected by the Federal Confidentiality of Alcohol and Drug Abuse Patient Records regulations: The Federal rules restrict any use of the information to criminally investigate or prosecute any alcohol or drug abuse patient.[facility] HospitalIn the event this information is protected by the Federal Confidentiality of Alcohol and Drug Abuse Patient Records regulations: The Federal rules restrict any use of the information to criminally investigate or prosecute any alcohol or drug abuse patient.[facility] HospitalIn the event this information is protected by the Federal Confidentiality of Alcohol and Drug Abuse Patient Records regulations: The Federal rules restrict any use of the information to criminally investigate or prosecute any alcohol or drug abuse patient.[facility] HospitalIn the event this information is protected by the Federal Confidentiality of Alcohol and Drug Abuse Patient Records regulations: The Federal rules restrict any use of the information to criminally investigate or prosecute any alcohol or drug abuse patient.[facility] HospitalIn the event this information is protected by the Federal Confidentiality of Alcohol and Drug Abuse Patient Records regulations: The Federal rules restrict any use of the information to criminally investigate or prosecute any alcohol or drug abuse patient.[facility] HospitalIn the event this information is protected by the Federal Confidentiality of Alcohol and Drug Abuse Patient Records regulations: The Federal rules restrict any use of the information to criminally investigate or prosecute any alcohol or drug abuse patient.[facility] HospitalIn the event this information is protected by the Federal Confidentiality of Alcohol and Drug Abuse Patient Records regulations: The Federal rules restrict any use of the information to criminally investigate or prosecute any alcohol or drug abuse patient.[facility] HospitalIn the event this information is protected by the Federal Confidentiality of Alcohol and Drug Abuse Patient Records regulations: The Federal rules restrict any use of the information to criminally investigate or prosecute any alcohol or drug abuse patient.[facility] HospitalIn the event this information is protected by the Federal Confidentiality of Alcohol and Drug Abuse Patient Records regulations: The Federal rules restrict any use of the information to criminally investigate or prosecute any alcohol or drug abuse patient.[facility] HospitalIn the event this information is protected by the Federal Confidentiality of Alcohol and Drug Abuse Patient Records regulations: The Federal rules restrict any use of the information to criminally investigate or prosecute any alcohol or drug abuse patient.[facility] HospitalIn the event this information is protected by the Federal Confidentiality of Alcohol and Drug Abuse Patient Records regulations: The Federal rules restrict any use of the information to criminally investigate or prosecute any alcohol or drug abuse patient.[facility] HospitalIn the event this information is protected by the Federal Confidentiality of Alcohol and Drug Abuse Patient Records regulations: The Federal rules restrict any use of the information to criminally investigate or prosecute any alcohol or drug abuse patient.[facility] HospitalIn the event this information is protected by the Federal Confidentiality of Alcohol and Drug Abuse Patient Records regulations: The Federal rules restrict any use of the information to criminally investigate or prosecute any alcohol or drug abuse patient.[facility] HospitalIn the event this information is protected by the Federal Confidentiality of Alcohol and Drug Abuse Patient Records regulations: The Federal rules restrict any use of the information to criminally investigate or prosecute any alcohol or drug abuse patient.[facility] HospitalIn the event this information is protected by the Federal Confidentiality of Alcohol and Drug Abuse Patient Records regulations: The Federal rules restrict any use of the information to criminally investigate or prosecute any alcohol or drug abuse patient.[facility] HospitalIn the event this information is protected by the Federal Confidentiality of Alcohol and Drug Abuse Patient Records regulations: The Federal rules restrict any use of the information to criminally investigate or prosecute any alcohol or drug abuse patient.[facility] Goals (unrecognized section and content) Goals may be documented in a n alternate section FOR RECORDS PERTAINING TO PATIENTS WHO ARE OR HAVE BEEN ENROLLED IN A CHEMICAL DEPENDENCY/SUBSTANCEABUSE PROGRAM, SOME INFORMATION MAY BE OMITTED. This clinical summary was aggregated from multiple sources. Caution should be exercised in using it in the provision of clinical care. This summary normalizes information from multiple sources, and as a consequence, information in this document may materially change the coding, format and clinical context of patient data. In addition, data may be omitted in some cases. CLINICAL DECISIONS SHOULD BE BASED ON THE PRIMARY CLINICAL RECORDS. [facility]. provides no warranty or guarantee of the accuracy or completeness of information in this document.
[2023-10-16 06:23] LABS: Hematocrit 44.4 % (36.0-48.0); Hemoglobin 13.3 g/dL (12.0-16.0); Mean Corpuscular Volume 93.5 fL (81.0-99.0); Mean Platelet Volume 9.1 fL (9.5-13.5); Platelet Count 596 10^3/uL (150-450); Red Blood Count 4.75 10^6/uL (4.20-5.40); Red Cell Distribution Width 14.1 % (11.0-15.0); White Blood Count 15.2 10^3/uL (4.0-11.0)
[2023-10-16 06:49] LABS: Atypical Lymphocytes Abs Man 1.21; Eosinophils Absolute Manual 1.06 10^3/uL (0.00-0.70); HCG Quantitative <1 mIU/mL; Lymphocytes Absolute Manual 3.64 10^3/uL (1.20-3.80); Monocytes Absolute Manual 0.45 10^3/uL (0.30-0.80); Segmented Neut Absolute Manual 8.81 10^3/uL (1.4-6.5); Smudge Cells SEEN
[2023-10-16] MEDS: LACTATED RINGER'S SOLUTION 1,000 ML 50 ML IV (06:54)
--- NOTE | 2023-10-16 09:10 | PM.ONB ---
Brief Operative Note Date of procedure: 10/16/23 Pre-op diagnosis general: retained iud Post-op diagnosis: same as pre-op Procedure: NAME OF PROCEDURE: removal and insertion of iud PROCEDURE: The patient was taken back to the Operating Room where she was prepped and draped in normal sterile fashion after being placed under general anesthesia without difficulty. She was also placed in the dorsal lithotomy position. A weighted speculum was placed in the patient?s vagina. The anterior lip of the cervix was identified and grasped with a single tooth tenaculum. The patient?s uterus was then sounded roughly to [? 8] cm. The patient was then gently dilated using Hegar dilators. The uterus was explored with polyp forcep the iud was grasp and removed without difficulty, the mirena device was then placed through the cervix and into the uterus, the device was deployed and iud placed without difficulty, the strings were cut. The single tooth tenaculum was then removed from the patient's anterior lip of the cervix where excellent hemostasis was noted. All instruments were removed from the patient?s vagina. The patient tolerated the procedure well. Sponge, lap and needle counts were correct times two. The patient was taken to the Recovery Room in stable condition.Room in stable condition. Anesthesia: VAN Surgeon: Jamie Harley Estimated blood loss (mL): 5 Pathology: none sent Condition: stable Disposition: PACU
== END 2023-10-16 09:27 | disposition home or self-care (01) ==
PROVIDERS: Visit Provider Obstetrics & Gynecology
PROC: (CPT 940; principal; 2023-10-16 07:30)
DX: T83.39XA Other mechanical complication of intrauterine contraceptive device, initial encounter (principal); Z30.433 Encounter for removal and reinsertion of intrauterine contraceptive device; G47.30 Sleep apnea, unspecified; K21.9 Gastro-esophageal reflux disease without esophagitis; F31.9 Bipolar disorder, unspecified; Z87.891 Personal history of nicotine dependence; Z98.84 Bariatric surgery status; Z90.81 Acquired absence of spleen; E66.01 Morbid (severe) obesity due to excess calories; Z68.44 Body mass index [BMI] 60.0-69.9, adult
CPT/HCPCS: 58300; 58301; 36415; 84702; 85007; 85027; J1094; J2704

== ENCOUNTER 2024-03-06 18:24 | Emergency (ER) | payer MEDICAID, SELFPAY ==
[2024-03-06 18:28] VITALS: BP 165/74; PULSE 84; TEMP 36.7; O2SAT 97; BMI 61.8
--- OUTSIDE RECORDS SUMMARY | 2024-03-06 18:31 | XMS_ITS | CCD ---
Author Organization [facility] Care Team Providers Care Development Writer Name Role Phone GENEVA ESTRADA Unavailable Unavailable RUMSCHLARoro ELIZABET Primary Care Unavailable CHANA THOMAS Referring Unavailable Elizabet Simental Primary Care Provider [phone] CHANA THOMAS Referring Unavailable RUMNORAHLARoro, ELIZABET Primary Care Unavailable KYLAH VARGAS Admitting Unavailable KYLAH VARGAS Attending Unavailable KYLAH VARGAS Referring Unavailable ZACK SIMENTALTY Primary Care Unavailable Elizabet Simental DO Primary Care Provider LucasGeneva mauro CNP Primary Care Provider [phone] [place] Unavailable Celsa Argueta Unavailable Rupinder Blakely Unavailable Estella Nguyen Unavailable Bambi Gonzalez Unavailable Christa Tyler Unavailable LucasGeneva mauro CNP Primary Care Provider Rob Garcia Un[facility] Primary Care Provider NON STAFF Primary Care Provider UnavailROBERT Jo Attending Provider [phone] Elizabet Simental Primary Care Provider [phone] Elizabet Simental Primary Care Provider DOMINIC, DR JAVED Attending Unavailable MISC, DR JAVED Admitting Unavailable [facility] Primary Care Unavailable MISC, DR DOCTOR Attending Unavailable MISC, DR JAVED Consulting Unavailable MISC, DR JAVED Admitting Unavailable [facility] Primary Care Unavailable WEST, DR ESTELLA Steiner Consulting Unavailable REQUEST, DR GUTIÉRREZ LISTED Admitting Unavaila ble REQUEST, DR GUTIÉRREZ LISTED Attending Unavaila ble [facility] Primary Care Unavailable MISC, DR JAVED Consulting Unavailable MISC, DR JAVED Consulting Unavailable MISC, DR JAVED Admitting Unavailable [facility] Primary Care Unavailable MISC, DR JAVED Attending Unavailable Darrel Nichols Consulting Unavailable RUMSCHLAG, ELIZABET Consulting Unavailable MISC, DR JAVED Attending Unavailable MISC, DR JAVED Admitting Unavailable [facility] Primary Care Unavailable HAY ., DR STEPHENS Admitting Unavailable HAY ., DR STEPHENS Attending Unavailable [facility] Primary Care Unavailable GRECHNANETTE ., MICHELLE MCGINNIS Consulting Unavailabl e ESTELLA ALVES Consulting Unavailable GRECHNY ., MICHELLE MCGINNIS Consulting Unavailabl e BERENICE BAKER Admitting Unavailable [facility] Primary Care Unavailable BERENICE BAKER Attending Unavailable MANPREET TORRES Consulting Unavailable JARON FABIAN Admitting Unavailable DENYS ., MR AGUILAR Consulting Unavailable JARON FABIAN Attending Unavailable [facility] Primary Care Unavailable Linda South Unavailable Christa Tyler Attending Unavailable Christa Tyler Admitting Unavailable NON STAFF Primary Care Unavailable Linda South Attending Unavailable Linda South Admitting Unavailable NON STAFF Primary Care Unavailable Rumschlag DO, Elizabet Primary Care Provider JOE GRANDA Attending Unavailable RUMSCHLAG, ELIZABET Primary Care Unavailable JOE GRANDA Admitting Unavailable JOE GRANDA Attending Unavailable RUMSCHLAG, ELIZABET Primary Care Unavailable KALEE, JOE R Admitting Unavailable Rumschlag DO, Elizabet Primary Care Provider JOE GRANDA Referring Unavailable RUMSCHLAG, ELIZABET Primary Care Unavailable RUMSCHLAG, ELIZABET Primary Care Unavailable JOE GRANDA Attending Unavailable RUMSCHLAG, ELIZABET Primary Care Unavailable JAYSHREE HUFFMAN Referring Unavailable MIREILLE DAO Attending Unavailable RUMSCHLAG, ELIZABET Referring Unavailable RUMSCHLAG, ELIZABET Primary Care Unavailable ALEJANDRA GRANDAE R Referring Unavailable RUMSCHLAG, ELIZABET Primary Care Unavailable JAYSHREE HUFFMAN Attending Unavailable ALEJANDRA GRANDAE R Referring Unavailable RUMSCHLAG, ELIZABET Primary Care Unavailable ALEX MONSIVAIS Attending Unavailable ALEJANDRA GRANDAE R Referring Unavailable EARL MCGEE Attending Unavailable RUMSCHLAG, ELIZABET Primary Care Unavailable RUMSCHLAG, ELIZABET Primary Care Unavailable ALEJANDRA GRANDAE R Referring Unavailable RUMSCHLAG, ELIZABET Primary Care Unavailable NONI SUMMERS Referring Unavailable ALEJANDRA GRANDAE R Referring Unavailable JAYHSREE HUFFMAN Attending Unavailable RUMSCHLAG, ELIZABET Primary Care Unavailable SHAUNNA PERSAUD Attending Unavailable RUMSCHLAG, ELIZABET Primary Care Unavailable JOE GRANDA R Referring Unavailable RUMSCHLAG, ELIZABET Primary Care Unavailable RUMSCHLAG, ELIZABET Primary Care Unavailable JAYSHREE HUFFMAN Referring Unavailable ALEJANDRA GRANDAE R Referring Unavailable RUPINDER COLBERT Attending Unavailable RUMSCHLAG, ELIZABET Primary Care Unavailable ALEJANDRA GRANDAE R Referring Unavailable RUMSCHLAG, ELIZABET Primary Care Unavailable CHRISTOPHER SANTIAGO Attending Unavailable RUMSCHLAG, ELIZABET Primary Care Unavailable ALEJANDRA GRANDAE R Referring Unavailable RUMSCHLAG, ELIZABET Primary Care Unavailable JAYSHREE HUFFMAN Attending Unavailable AMINA NIETO Attending Unavailable RUMSCHLAG, ELIZABET Primary Care Unavailable RUMSCHLAG, ELIZABET Primary Care Unavailable JAYSHREE HUFFMAN Referring Unavailable RUMSCHLAG, ELIZABET Primary Care Unavailable ALEJANDRA GRANDAE R Referring Unavailable MIREILLE DAO Attending Unavailable AMINA NIETO Referring Unavailable RUMSCHLAG, ELIZABET Primary Care Unavailable RUMSCHLAG, ELIZABET Primary Care Unavailable ALEJANDRA GRANDAE R Referring Unavailable RUMSCHLAG, ELIZABET Primary Care Unavailable RUPINDER COLBERT Attending Unavailable ALEJANDRA GRANDAE R Referring Unavailable GUTALEJANDRA REYNOLDSE R Referring Unavailable RUMSCHLAG, ELIZABET Primary Care Unavailable RUPINDER COLBERT Attending Unavailable ALEJANDRA GRANDAE R Referring Unavailable RUMSCHLAG, ELIZABET Primary Care Unavailable JOE GRANDA R Attending Unavailable OTILIO LEON Referring Unavailable SERVICES, [facility] Primary Care Unava ilable OTILIO LEON Referring Unavailable SERVICES, [facility] Primary Care Unava ilable OTILIO LEON Attending Unavailable CAROLYN, OTILIO Naqvi Referring Unavailable SERVICES, [facility] Unava ilable CAROLYN, OTILIO Naqvi Admitting Unavailable CAROLYN, OTILIO Naqvi Attending Unavailable CAROLYN, OTILIO Naqvi Referring Unavailable SERVICES, [facility] Unava ilable YOSHI DELGADO Attending Unavailable SERVICES, [facility] Unava ilable CAROLYN, OTILIO Naqvi Admitting Unavailable CAROLYN, OTILIO Naqvi Attending Unavailable CAROLYN, OTILIO Naqvi Referring Unavailable SERVICES, [facility] Unava ilable YOSHI DELGADO Attending Unavailable SERVICES, [facility] Unava ilable CHERRI, KIKO Attending Unavailable CHERRI, KIKO Attending Unavailable APLING, BUSHRA Mart Attending Unavailable APLING, BUSHRA Mart Referring Unavailable CAROLYN, OTILIO Naqvi Attending Unavailable APLING, BUSHRA Mart Attending Unavailable CAROLYN, OTILIO Naqvi Attending Unavailable APLING, BUSHRA Mart Attending Unavailable APLING, BUSHRA Mart Attending Unavailable BERRY, PUJA Attending Unavailable MYERHOLTZ ZOHRA Referring Unavailable Allergies Allergy Classification Reported Allergen(s) Allergy Type Date of Onset Reaction(s) Facility (2 sources) Adhesive Tape Propensity to adverse reactions to drug 10-11-19 17 [place], [place] (6 sources) Penicillins; Translations: [PENICILLINS] Propensity to adverse reactions to drug 05-29-20 17 Hives, [place], [place] (14 sources) traMADol; Translations: [Ultram TABS] Drug Allergy 08-28-19 13 Hives, [place], [place] (20 sources) Amoxicillin-Pot Clavulanate; Translations: [AMOXICILLIN-POT CLAVULANATE] Propensity to adverse reactions to drug 10-11-19 17 Diarrhea, Other (See Comments) [place], [place] (20 sources) Cephalexin; Translations: [CEPHALEXIN] Drug Allergy 05-06-20 19 Rash, Itching [facility] (1 source) *Adhesive Tape Propensity to adverse reactions 11-10-19 07 [facility] (7 sources) Penicillins Drug Allergy 05-06-20 19 Hives [facility] (20 sources) traMADol; Translations: [TRAMADOL HCL] Drug Allergy 03-13-20 15 Itching [facility] (20 sources) Adhes. Kntj-Czcq-Iyvszgn onium; Translations: [ADHES. [id number]-[id number]-TIOMAVD ONIUM] Drug Allergy 03-13-20 15 [facility] (20 sources) Adhesive Tape-Silicones; Translations: [ADHESIVE TAPE-SILICONES] Drug Allergy 05-06-20 19 [facility] (9 sources) Amoxicillin / Clavulanate; Translations: [Augmentin TABS] Drug Allergy stomach upset [id number] r 206A [facility] Work Phone: (1 source) Cephalexin; Translations: [Keflex TABS] Drug Allergy [id number]-[id number]-[id number] r 206A IV[facility] Work Phone: (1 source) Penicillins; Translations: [Penicillins] Allergy to drug (finding) [id number]-[id number]-Bmpcmr r 206A [facility] Work Phone: (11 sources) Adhesive agent; Translations: [Adhesive] Propensity to adverse reactions 11-10-19 07 rash,blisterin g, [facility] (8 sources) Cephalexin; Translations: [Keflex] Drug Allergy itchy [facility] (9 sources) Doxycycline Drug Allergy stomach upset Index [facility] [employer] Other (9 sources) penicillAMINE Drug Allergy rash Index [facility] [employer] Other (9 sources) Penicillin G Drug Allergy Unknown [employer] Other (20 sources) Penicillins Drug Allergy 05-06-20 19 [facility] (2 sources) Amoxicillin / Clavulanate Drug Allergy 12-18-19 17 stomach upset [facility] (1 source) Penicillins Drug allergy (disorder) [facility] (1 source) traMADol Drug Allergy 08-28-19 13 [facility] Medications Current Medications Medication Drug Class(es) [...] as needed. Take 2 tablets by mo [facility] every 6 hours for 4 days. ARIPiprazole 10 mg oral tablet (20 sources) Atypical Antipsychotic Start: 11-26-19 take 1 tablet by mouth once daily at bedtime ARIPiprazole (ABILIFY) 10 mg tablet Take 10 mg by mouth daily at bedtime. 11/25/2021 Active Start: 04-30-2021 take 1 tablet by claudia at bedtime aripiprazole 5 MG tablet Take 5 mg by mouth at bedtime. 0 04/30/2021 Active Comment on above: Take 10 mg by mouth daily at bedtime. busPIRone hydrochloride 15 mg oral tablet (20 sources) Start: 07-08-2023 take 1 tablet by mouth every twelve hours busPIRone (BUSPAR) 15 mg tablet Take 1 tablet by mouth every 12 hours. 07/08/2023 Active Start: 11-26-2021 End: 03-10-2023 take 1 tablet by mouth twice daily busPIRone (BUSPAR) 15 mg tablet Take 15 mg by mouth twice daily. 0 11/26/2021 03/10/2023 Discontinued (Course of therapy completed) Start: 04-25-2021 take 1 tablet by claudia twice daily busPIRone 15 MG tablet Take 15 mg by mouth 2 times daily. 0 04/25/2021 Active take 1 tablet by claudia twice daily busPIRone (BUSPAR) 5 MG tablet Take 5 mg by mouth 2 times daily 0 Active Comment on above: Take 15 mg by mouth twice daily. Take 1 tablet by claudia every 12 hours. Calcium Citrate (10 sources) Calcium Citrate Active take 2 tablets by mo [facility] once daily, then take 1 tablet by mouth calcium citrate (CALCITRATE) 250 MG TABS tablet Take 500 mg by mouth daily 0 Active cetirizine hydrochloride 10 mg oral tablet (20 sources) Histamine-1 Receptor Antagonist Start: 07-08-2023 take 1 tablet by mouth once cetirizine (ZYRTEC) 10 mg tablet Take 1 tablet by mouth every afternoon. 07/08/2023 Active Start: 03-05-2015 End: 03-10-2023 take 1 tablet by mouth once daily cetirizine (ZYRTEC) 10 mg tablet Take 10 mg by mouth once daily. 0 03/05/2015 03/10/2023 Discontinued (Course of therapy completed) Comment on above: Take 10 mg by mouth once daily. Take 1 tablet by claudia every afternoon. cholecalciferol 0.025 mg oral capsule (3 sources) Vitamin D Start: take 2 capsules by mouth once daily Cholecalciferol, Vitamin D3, 25 mcg (1,000 unit) cap Indications: Impaired intestinal absorption , S/P bariatric surgery , Vitamin D deficiency Take 2 capsules by mouth once daily. 60 capsule 2 11/02/2023 Active 1 ml diphenhydrAMINE hydrochloride 50 mg/ml cartridge (1 source) Histamine-1 Receptor Antagonist Start: End: diphenhydrAMINE (BENADRYL) injection 12.5 mg docusate sodium 50 mg / sennosides, care home 8.6 mg oral tablet (11 sources) Start: End: take 1 tablet by mouth once daily [...] unless otherwise advised. [facility] DULoxetine 60 mg delayed release oral capsule (20 sources) Serotonin and Norepinephrine Reuptake Inhibitor Start: take 1 capsule by mouth twice daily DULoxetine [address] Particles capsule DR Take 60 mg by mouth 2 times daily. 0 04/25/2021 Active Start: 07-27-2019 take 1 capsule by mo [facility] once daily DULoxetine (CYMBALTA) 60 MG extended release capsule TAKE 1 CAPSULE BY MOUTH DAILY 0 07/27/2019 Active Cymbalta Active Comment on above: Take 60 mg by mouth once daily. 2 ml fentaNYL 0.05 mg/ml injection (1 source) Opioid Agonist Start: 0 fentaNYL (SUBLIMAZE) injection 25 mcg ferrous sulfate 325 mg oral tablet (3 sources) Start: 4 take 1 tablet by mouth once daily ferrous sulfate 325 mg (65 mg iron) tablet Indications: Impaired intestinal absorption , S/P bariatric surgery , Iron deficiency Take 1 tablet by mouth once daily. 30 tablet 2 11/02/2023 Active fluticasone propionate 0.05 mg/actuat metered dose nasal [...] mg/ml injection (1 source) Arteriolar Vasodilator Start: 04-06-20 20 hydrALAZINE (APRESOLINE) injection 5 mg hydrOXYzine pamoate 50 mg oral capsule (20 sources) Antihistamine Start: 07-08-19 24 take 1 capsule by mouth every twenty-four hours as needed hydrOXYzine pamoate (VISTARIL) 50 mg capsule Take 50 mg by mouth at bedtime as needed. 07/08/2023 Active End: 03-10-2023 take 1 capsule by mouth twice daily hydrOXYzine pamoate (VISTARIL) 50 mg capsule Take 50 mg by mouth twice daily. 0 03/10/2023 Discontinued (Course of therapy completed) take 1 capsule by mo [facility] every twenty-four hours Vistaril 25 MG 1 capsule at bedtime as needed Orally Once a day Active Vistaril Active Comment on above: Take 50 mg by mouth twice daily. Take 50 mg by mouth at bedtime as needed. ibuprofen 800 mg oral tablet (2 sources) Nonsteroidal Anti-inflammatory Drug Start: 2 take 1 tablet by mouth three times daily at mealtime as needed Ibuprofen 800 MG 1 tablet with food or milk as needed Orally Three times a day for 10 day(s) October, Active lamoTRIgine 100 mg oral tablet (20 sources) Mood Stabilizer, Anti-epileptic Agent Start: 2 take 1 tablet by mouth once daily in the morning lamoTRIgine (LAMICTAL) 100 mg tablet Take 100 mg by mouth every morning. 11/26/2021 Active Start: 04-25-2021 take 1 tablet by claudia th once daily in the morning lamoTRIgine 100 MG tablet Take 100 mg by mouth daily every morning. 0 04/25/2021 Active take 1 tablet by claudia th once daily lamoTRIgine (LAMICTAL) 100 MG tablet Take 100 mg by mouth daily 0 Active Comment on above: Take 100 mg by mouth every morning. levonorgestrel 0.013010 mg/hr intrauterine system (19 sources) Progestin, Progestin-containing Intrauterine Device levonorgestrel (ELISEO NA) 21 mcg/24 hours (8 yrs) 52 mg IUD 1 Each by INTRAUTERINE route one time only. Active Mirena Active Comment on above: 1 Each by INTRAUTERI NE route one time only. 1 ml meperidine hydrochloride 50 mg/ml injection (1 source) Opioid Agonist Start: meperidine (DEMEROL) injection 12.5 mg 24 hr metFORMIN hydrochloride 500 mg extended release oral tablet (3 sources) Biguanide Start: End: take 1 tablet by mouth once daily at dinner metFORMIN ER (GLUCOPHAGE XR) 500 mg 24 hr tablet take 1 tablet by mouth daily with dinner 30 tablet 3 03/04/2024 Active methocarbamol 500 mg oral tablet (3 sources) Muscle Relaxant Start: End: take 1 tablet by mouth every eight hours as needed methocarbamol (ROBAXIN) 500 mg tablet Take 1 tablet by mouth three times a day as needed for up to 10 days. 21 tablet 0 08/11/2023 08/21/2023 Active Comment on above: Take 1 tablet by claudia th three times a day as needed for up to 10 days. montelukast 10 mg oral tablet (16 sources) Leukotriene Receptor Antagonist take 1 tablet by mouth once daily at bedtime montelukast (SINGULAIR) 10 mg tablet Take 10 mg by mouth daily at bedtime. Active Comment on above: Take 10 mg by mouth daily at bedtime. Multiple Vitamin (Daily-Sandor) tablet (1 source) Start: Multiple Vitamin (Daily-Sandor) tablet 1 tablet daily. 0 04/25/2021 Active mupirocin 0.02 mg/mg topical ointment (1 source) RNA Synthetase Inhibitor Antibacterial Start: Mupirocin 2 % 1 application Externally Three times a day for 7 days Sep, Active omeprazole 40 mg delayed release oral capsule (18 sources) Proton Pump Inhibitor Start: End: take 1 capsule by mouth once daily omeprazole (PRILOSEC) 40 mg capsule Indications: Status post biliopancreatic diversion with duodenal switch Take 1 capsule by mouth once daily. 90 capsule 08/17/2023 Active Start: 08-11-2023 End: 11-09-2023 take 1 [...] 0 07/20/2023 10/18/2023 Active Start: 03-03-2023 omeprazole (DC ILOSEC) 40 mg capsule TAKE 1 CAPSULE BY MOUTH 30 MINUTES BEFORE morning meal 0 03/03/2023 Active Comment on above: TAKE 1 CAPSULE BY MO UT 30 MINUTES BEFORE morning meal Take 1 capsule by mo ut two times a day. Take 1 capsule by mo uth once daily. ondansetron 4 mg disintegrating oral tablet (20 sources) Serotonin-3 Receptor Antagonist Start: 08-11-19 End: 08-17-19 take 1 tablet by mouth every eight hours as needed for nausea ondansetron orally disintegrating (ZOFRAN ODT) 4 mg disintegrating tablet Indications: prevention of post-operative nausea and vomiting dissolve 1 tablet in mouth every 8 hours as needed for nausea/vomiting. 90 tablet 08/17/2023 Active Start: 07-20-2023 take 1 tablet [...] for nausea/vomiting. OXcarbazepine 300 mg oral tablet (10 sources) Anti-epileptic Agent Start: 4 take 1 tablet by mouth once daily at bedtime OXcarbazepine (TRILEPTAL) 300 mg tablet Take 300 mg by mouth daily at bedtime. 07/08/2023 Active Comment on above: Take 300 mg by mouth daily at bedtime. oxyCODONE hydrochloride 5 mg oral tablet (9 sources) Opioid Agonist Start: 4 End: 4 take 1 tablet by mouth every six [...] as directed left foot sprain October, Active prazosin 1 mg oral capsule (20 sources) alpha-Adrenergic Jaylon Start: 08-19-2021 take 1 capsule by mouth once daily at bedtime prazosin (MINIPRESS) 1 mg cap Take 1 mg by mouth daily at bedtime. 08/19/2021 Active Comment on above: Take 1 mg by mouth d aily at bedtime. predniSONE 20 mg oral tablet (2 sources) [...] up to 50 mg May, 25 mg propranolol hydrochloride 60 mg oral tablet (20 sources) beta-Adrenergic Jaylon Start: 11-25-2021 take 1 tablet by mouth twice daily propranolol (INDERAL) 60 mg tablet Take 60 mg by mouth twice daily. 11/25/2021 Active Start: 05-13-2021 take 1 tablet by claudia th twice daily Propranolol HCl 60 MG tablet Take 60 mg by mouth 2 times daily. 0 05/13/2021 Active take 1 tablet by claudia th every twenty-four hours Propranolol HCl 60 MG [...] Take 60 mg by mouth twice daily. QUEtiapine 100 mg oral tablet (11 sources) Atypical Antipsychotic Start: 0 End: 2 take 1 tablet by mouth at bedtime [...] Dihydrofolate Reductase Inhibitor Antibacterial, Sulfonamide Antimicrobial Start: 10-04-19 take 1 tablet by mouth every twelve hours Bactrim DS 800-160 MG 1 tablet Orally Twice a day for 10 day(s) Sep, Active zinc acetate 25 mg oral capsule (3 sources) Start: 11-02-19 take 1 capsule by mouth once daily Zinc Acetate, Oral, 25 mg (zinc) cap Indications: Impaired intestinal absorption , S/P bariatric surgery , Dietary zinc deficiency Take 1 capsule by mouth once daily. 30 capsule 2 11/02/2023 Active Completed/Discontinued Medications Medication Drug Class(es) Dates Sig (Normalized) Sig (Original) calcium citrate 1500 mg / cholecalciferol 250 unt oral tablet (1 source) Vitamin D End: 09-23-2021 take 1 tablet by mouth three times daily at mealtime Calcium Citrate-Vitamin D3 (CITRACAL+D) 315 mg- 250 unit tab Take 1 tablet by mouth three times daily with meals. 0 09/23/2021 Discontinued (Discontinued by another Health Care Provider) Comment on above: Take 1 tablet by claudia th three times daily with meals. cefTRIAXone (9 sources) Cephalosporin Antibacterial Start: 10-05-2018 ROCEPHIN per 250 mg Sep, 250 mg dicyclomine hydrochloride 20 mg oral tablet (20 sources) Anticholinergic Start: 10-21-2018 take 1 tablet by mouth every eight [...] 300 mg by mouth three times daily. iv contrast (will be provided with radiology test) (2 sources) Start: 11-05-19 End: 11-06-19 iv contrast (will be provided with radiology [...] Toradol per 15 mg Mar, 60 mg lidocaine 0.05 mg/mg medicated patch (6 sources) Antiarrhythmic, Amide Local Anesthetic apply 1 dose transdermal route every twenty-four hours lidocaine (LIDODERM) 5 % Apply 1 Patch as directed every 24 hours. 0 Active Comment on above: Apply 1 Patch as dir ected every 24 hours. loratadine 10 mg oral tablet (20 sources) End: 023 take 1 tablet by mouth once daily [...] 1 application to affected area as needed. pantoprazole 40 mg delayed release oral tablet (20 sources) Proton Pump Inhibitor Start: 2022 End: 2022 take 1 tablet by mouth once daily [...] 1 tablet by claudia th once daily. topiramate 100 mg oral tablet (20 [...] tonsils] Onset: 6 10-04-2015 Chronic Administrative/social admission (7 sources) Patient encounter status; Translations: [Dietary counseling [...] disease] Onset: 6 Resolved: 2 02-17-2020 Chronic Headache; including migraine (20 sources) Refractory migraine [...] source) Thrombocytosis; Translations: [Thrombocytosis] Onset: 5 Chronic Nutritional deficiencies (1 source) Vitamin D deficiency; Translations: [Vitamin D deficiency, unspecified] 11-02-2023 Chronic Osteoarthritis (9 sources) Degenerative joint disease of shoulder region; Translations: [Primary osteoarthritis, right shoulder] Chronic Other aftercare (1 source) 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; Translations: [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 CURRENT DRUG THERAPY] Onset: 3 Episodic Other aftercare (3 sources) Surgical follow-up; Translations: [Encounter for follow-up [...] [Other intestinal malabsorption] Chronic Other gastrointestinal disorders (8 sources) Abnormal intestinal absorption; Translations: [Intestinal malabsorption, unspecified] Onset: 4 08-19-2023 Chronic Other gastrointestinal disorders (13 sources) History of sleeve gastrectomy; Translations: [Bariatric surgery status] Onset: 1 Episodic Other gastrointestinal disorders (1 source) Dysphagia; Translations: [Dysphagia, unspecified] Episodic Other gastrointestinal disorders (9 sources) Abdominal bloating; Translations: [Abdominal distension (gaseous)] Episodic Other gastrointestinal disorders (9 sources) Diarrhea; Translations: [Diarrhea, unspecified] Episodic Other gastrointestinal disorders (11 sources) History of bariatric surgical procedure; Translations: [...] Onset: 2 Chronic Other nervous system disorders (1 source) [...] Chronic Other nutritional; endocrine; and metabolic disorders (4 sources) Body mass index (BMI) 60.0-69.9, adult; Translations: [BODY MASS INDEX BMI 60.0-69.9 ADULT] Onset: 2 Chronic Other nutritional; endocrine; and metabolic disorders (1 source) Obesity, unspecified; Translations: [OBESITY UNSPECIFIED] Onset: 3 Chronic Other nutritional; endocrine; and metabolic disorders (9 sources) Hypophosphatemia; Translations: [Other disorders of phosphorus [...] Translations: [Pain in right foot] Onset: 2 Unclassified (1 source) left ulnar neuropathy Onset: 4 Viral infection (1 source) Human papilloma virus infection; Translations: [Human papillomavirus in conditions classified elsewhere and of unspecified site] Episodic Past or Other Problems Problem Classification Problem Date Documented Da te Episodic/Chronic Acute and chronic tonsillitis (20 sources) Tonsillitis; Translations: [Acute recurrent tonsillitis, unspecified] Onset: 10-08-2015 10-08-2015 Episodic Fever of unknown origin (2 sources) Fever; Translations: [Fever in adult] Onset: 01-17-2017 01-17-2017 Episodic Fluid and electrolyte disorders (9 sources) Hypokalemia; Translations: [Hypokalemia] Onset: 08-07-2023 08-07-2023 Episodic Headache; including migraine (2 sources) Headache; Translations: [Intractable episodic headache] Onset: 01-17-2017 01-17-2017 Episodic Malaise and fatigue (4 sources) Fatigue; Translations: [Other fatigue] Onset: 08-31-2022 Episodic Neoplasms of unspecified nature or uncertain behavior (20 sources) Thrombocytosis; Translations: [Thrombocytosis] Onset: 03-13-2015 03-13-2015 Episodic Nutritional deficiencies (10 sources) Iron deficiency; Translations: [Iron deficiency] Onset: 11-02-2023 11-02-2023 Episodic Other connective tissue disease (1 source) [...] Snoring; Translations: [SNORING] Onset: 08-17-2022 Episodic Other nervous system disorders (9 sources) Postoperative pain ; Translations: [Other acute postprocedural pain] Onset: 08-05-2023 08-07-2023 Episodic Other nutritional; endocrine; and metabolic disorders [...] Test Name Value Interpretation Reference Range Facility HCG ( test) Ql (U)o n 12-02-2023 Beta HCG ( test) Ql (U) Negative Normal NEG [facility] Comment on above: Performed By: #### 2106-3 #### [facility] ([id number]) [address] [place] [address], [place] [address] VITAMIN John 11-27-2023 VITAMIN K 0.75 nmol/L Normal 0.22-4.88 [facility] Comment on above: Order Comment: Specimen Type: BLOOD SPEC IMENOrdering Facility: [facility] Address: [address] [place], [place] [address] Result Comment: INTE RPRETIVE INFORMATION: Vitamin K1, Serum Vitamin K concentration is reported as nanomoles per liter (nmol/L). To convert concentration to nanograms per milliliter (ng/mL), multiply the result by 0.45. This test was developed and its performance characteristics determined by [employer]. It has not been cleared or approved by the US Food and Drug Administration. This test was performed in a CLIA certified laboratory and is intended for clinical purposes. Performed By: [facility] [address] [place] [address] Scrap Crane Operator: John Newsome MD, PhD CLIA Number: [id number] Performed By: #### V ITK ####[facility] [id number] [place] [address] HCG ( test) Ql (U)o n 11-04-2023 Beta HCG ( test) Ql (U) Negative Normal NEG [facility] Comment on above: Performed By: #### 2106-3 #### [facility] ([id number]) [address] [place] [address], [place] [address] 25(OH)D3 [facility]-yumion 2023 25-hydroxyvitami n D3 [Mass/Vol] 29.3 ng/mL Low 31.0-80.0 [facility] Comment on above: Order Comment: Specimen Type: BLOOD SPEC IMEN [facility] Facility: [facility] Address: [address] [place] [address] Performed By: #### 2 284-8, 2731-8, 2132-9 #### [facility] CLIA [id number] [address] [place] [address] [id number] [place] [address] [place] A-Tocopherol Vit E SerPl-mCn con 10-28-2023 Alpha tocopherol [Mass/Vol] 7.0 mg/L Normal 6.0-23.0 [facility] Comment on above: Order Comment: Specimen Type: BLOOD SPEC IMENOrdering Facility: [facility] Address: [address] [place] [address] Performed By: #### 2 923-1, 18208-30 ####[facility] [id number] [place] [address] [place] Alpha tocopherol [Mass/Vol]o n 10-28-2023 Beta+gamma tocopherol [Mass/Vol] 0.7 mg/L Normal 0.3-3.2 [facility] Comment on above: Order Comment: Specimen Type: BLOOD SPEC IMENOrdering Facility: [facility] Address: [address] [place] [address] Result Comment: This test was developed and its performance characteristics determined by [facility]'s [facility] [place] ([facility] It has not been cleared or approved by the FDA. [facility] is regulated under CLIA as qualified to perform high-complexity testing. This test is used for clinical purposes. It should not be regarded as investigational or for research. Performed By: #### 2 923-, 1822-09 ####[facility] [id number] [place] [address] [place] CBC panel Auto (Bld)on 10-27 Erythrocyte distribution width (RBC) [Ratio] 14.3 % Normal 11.5-15.0 [facility] Comment on above: Order Comment: Specimen Type: BLOOD SPEC IMENOrdering Facility: [facility] Address: [address] [place] [address] Performed By: #### 5 8410-2 ####[facility] [id number] [place] [address] Hematocrit (Bld) [Volume fraction] 43.5 % Normal 36.0-46.0 [facility] Comment on above: Order Comment: Specimen Type: BLOOD SPEC IMENOrdering Facility: [facility] Address: [address] [place] [address] Performed By: #### 5 8410-2 ####[facility] [id number] [place] [address] Hemoglobin (Bld) [Mass/Vol] 13.6 g/dL Normal 11.5-15.5 [facility] Comment on above: Order Comment: Specimen Type: BLOOD SPEC IMENOrdering Facility: [facility] Address: [address] [place] [address] Performed By: #### 5 8410-2 ####[facility] [id number] [place] [address] MCH (RBC) [Entitic mass] 27.5 pg Normal 26.0-34.0 [facility] Comment on above: Order Comment: Specimen Type: BLOOD SPEC IMENOrdering Facility: [facility] Address: [address] [place] [address] Performed By: #### 5 8410-2 ####[facility] [id number] [place] [address] MCHC (RBC) [Mass/Vol] 31.3 g/dL Normal 30.5-36.0 [facility] Comment on above: Order Comment: Specimen Type: BLOOD SPEC IMENOrdering Facility: [facility] Address: [address] [place] [address] Performed By: #### 5 8410-2 ####[facility] [id number] [place] [address] MCV (RBC) [Entitic vol] 88.1 fL Normal 80.0-100.0 [facility] Comment on above: Order Comment: Specimen Type: BLOOD SPEC IMENOrdering Facility: [facility] Address: [address] [place] [address] Performed By: #### 5 8410-2 ####[facility]IA [id number] [place] [address] Nucleated RBC (Bld) [#/Vol] 10*3/uL Normal <0.01 [facility] Comment on above: Order Comment: Specimen Type: BLOOD SPEC IMENOrdering Facility: [facility] Address: [address] [place] [address] Performed By: #### 5 8410-2 ####[facility] [id number] [place] [address] Platelet mean volume (Bld) [Entitic vol] 8.8 fL Low 9.0-12.7 [facility] Comment on above: Order Comment: Specimen Type: BLOOD SPEC IMENOrdering Facility: [facility] Address: [address] [place] [address] Performed By: #### 5 8410-2 ####[facility] LABCL[facility] [id number] [place] [address] Platelets (Bld) [#/Vol] 722 10*3/uL High 150-400 [facility] Comment on above: Order Comment: Specimen Type: BLOOD SPEC IMENOrdering Facility: [facility] Address: [address] [place] [address] Performed By: #### 5 8410-2 ####[facility]CL[facility] [id number] [place] [address] RBC (Bld) [#/Vol] 4.94 10*6/uL Normal 3.90-5.20 [facility] Comment on above: Order Comment: Specimen Type: BLOOD SPEC IMENOrdering Facility: [facility] Address: [address] [place] [address] Performed By: #### 5 8410-2 ####[facility] LABCL[facility] [id number] [place] [address] WBC (Bld) [#/Vol] 14.70 10*3/uL High 3.70-11.00 [facility] Comment on above: Order Comment: Specimen Type: BLOOD SPEC IMENOrdering Facility: [facility] Address: [address] [place] [address] Performed By: #### 5 8410-2 ####[facility] LABCLIA [id number] [place] [address] Comprehensive metabolic 2000 panelon 10-28-2023 Albumin [Mass/Vol] 4.2 g/dL Normal 3.9-4.9 [facility] Comment on above: Order Comment: Specimen Type: BLOOD SPEC IMEN [facility] Address: [address] [place] [address] Performed By: #### 2 284-8, 2731-8, 2132-02 #### [facility] CLIA [id number] [address] [place] [address] [place] ALP [Catalytic activity/Vol] 137 U/L High 34-123 [facility] Comment on above: Order Comment: Specimen Type: BLOOD SPEC IMEN [facility] Address: [address] [place] [address] Performed By: #### 2 284-8, 2730-8, 2132-02 #### [facility] CLIA [id number] [address] [place] [address] [place] ALT [Catalytic activity/Vol] 37 U/L Normal 7-38 [facility] Comment on above: Order Comment: Specimen Type: BLOOD SPEC IMEN [facility] Address: [address] [place] [address] Performed By: #### 2 284-8, 2730-8, 2132-02 #### [facility] CLIA [id number] [address] [place] [address] [place] Anion gap [Moles/Vol] 10 mmol/L Normal 9-18 [facility] Comment on above: Order Comment: Specimen Type: BLOOD SPEC IMEN [facility] Address: [address] [place] [address] Performed By: #### 2 284-8, 273-8, 9 #### [facility] CLIA [id number] [address] [place] [address] [place] AST [Catalytic activity/Vol] 25 U/L Normal 13-35 [facility] Comment on above: Order Comment: Specimen Type: BLOOD SPEC IMEN [facility] Address: [address] [place] [address] Performed By: #### 2 284-8, 2730-8, 2132-02 #### [facility] CLIA [id number] [address] [place] [address] [place] Bilirubin [Mass/Vol] mg/dL Low 0.2-1.3 [facility] Comment on above: Order Comment: Specimen Type: BLOOD SPEC IMEN [facility] Address: [address] [place] [address] Performed By: #### 2 284-8, 2730-8, 2132-02 #### [facility] CLIA [id number] [address] [place] [address] [place] Calcium [Mass/Vol] 9.5 mg/dL Normal 8.5-10.2 [facility] Comment on above: Order Comment: Specimen Type: BLOOD SPEC IMEN [facility] Address: [address] [place] [address] Performed By: #### 2 284-8, 8, 2132-02 #### [facility] CLIA [id number] [address] [place] [address] [place] Chloride [Moles/Vol] 101 mmol/L Normal 97-105 [facility] Comment on above: Order Comment: Specimen Type: BLOOD SPEC IMEN [facility] Address: [address] [place] [address] Performed By: #### 2 284-8, 8, 2132-02 #### [facility] CLIA [id number] [address] [place] [address] [place] CO2 [Moles/Vol] 26 mmol/L Normal 22-30 [facility] Comment on above: Order Comment: Specimen Type: BLOOD SPEC IMEN [facility] Address: [address] [place] [address] Performed By: #### 2 284-8, 8, 2132-02 #### [facility] CLIA [id number] [address] [place] [address] [place] Creatinine [Mass/Vol] 0.76 mg/dL Normal 0.58-0.96 [facility] Comment on above: Order Comment: Specimen Type: BLOOD SPEC IMEN [facility] Address: [address] [place] [address] Performed By: #### 2 284-8, 8, 2132-02 #### [facility] CLIA [id number] [address] [place] [address] [place] Creatinine and Glomerular filtration rate.predicted panel (S/P/Bld) 103 mL/min/1.73m??? Normal >=60 [facility] Comment on above: Order Comment: Specimen Type: BLOOD SPEC IMEN [facility] Address: [address] [place] [address] Result Comment: Janet mated Glomerular Filtration Rate [...] reflect actual GFR. Performed By: #### 2 284-8, 8, 2132-02 #### [facility] CLIA [id number] [address] [place] [address] [place] Glucose [Mass/Vol] 155 mg/dL High 74-99 [facility] Comment on above: Order Comment: Specimen Type: BLOOD SPEC IMEN [facility] Address: [address] [place] [address] Result Comment: The [place] Diabetes Association (ADA) provides guidance for cutoff [...] Standards of Medical Care in Diabetes 2016, [place] Diabetes Association. Diabetes Care. 2016.39(Suppl 1). Performed By: #### 2 284-8, 2730-8, 2132-02 #### [facility] CLIA [id number] [address] [place] [address] [place] Potassium [Moles/Vol] 3.7 mmol/L Normal 3.7-5.1 [facility] Comment on above: Order Comment: Specimen Type: BLOOD SPEC IMEN [facility] Address: [address] [place] [address] Performed By: #### 2 284-8, 2731-01, 2132-02 #### [facility] CLIA [id number] [address] [place] [address] [place] Protein [Mass/Vol] 7.9 g/dL Normal 6.3-8.0 [facility] Comment on above: Order Comment: Specimen Type: BLOOD SPEC IMEN [facility] Address: [address] [place] [address] Performed By: #### 2 284-8, 8, 2132-02 #### [facility] CLIA [id number] [address] [place] [address] [place] Sodium [Moles/Vol] 137 mmol/L Normal 136-144 [facility] Comment on above: Order Comment: Specimen Type: BLOOD SPEC IMEN [facility] Address: [address] [place] [address] Performed By: #### 2 284-8, 2731-8, 9 #### [facility] CLIA [id number] [address] [place] [address] [place] Urea nitrogen [Mass/Vol] 11 mg/dL Normal 7-21 [facility] Comment on above: Order Comment: Specimen Type: BLOOD SPEC IMEN [facility] Address: [address] [place] [address] Performed By: #### 2 284-8, 2731-8, 9 #### [facility] CLIA [id number] [address] [place] [address] [place] Ferritin SerPl-ncon 2023 Ferritin [Mass/Vol] 50.4 ng/mL Normal 14.7-205.1 [facility] Comment on above: Order Comment: Specimen Type: BLOOD SPEC IMENOrdering Facility: [facility] Address: [address] [place] [address] Performed By: #### 2 276-4, 52259-5 ####[facility] LAB[facility]IA [id number] [place] [address] [place] Folate SerPl-mCncon 10-28-19 24 Folate [Mass/Vol] 15.7 ng/mL Normal >4.7 [facility] Comment on above: Order Comment: Specimen Type: BLOOD SPEC IMEN [facility] Address: [address] [place] [address] Performed By: #### 2 284-8, 2731-8, 9 #### [facility] CLIA [id number] [address] [place] [address] [place] HbA1c (Bld)on 10-28-2023 Average glucose Estimated from glycated hemoglobin (Bld) [Mass/Vol] 128 mg/dL Normal [facility] Comment on above: Order Comment: Specimen Type: BLOOD SPEC IMEN [facility] Address: [address] [place] [address] Result Comment: eAG: (Estimated average glucose) is a calculated value from HgbA1c and is telemarketing sales representative of the average blood glucose level in the last 2-3 month period. Performed By: #### 5 5454-3 #### [facility] CLIA [id number] [address] [place] [address] [place] HbA1c (Bld) [Mass fraction] 6.1 % High 4.3-5.6 [facility] Comment on above: Order Comment: Specimen Type: BLOOD SPEC IMEN [facility] Address: [address] [place] [address] Result Comment: Amer [place] Diabetes Association guidelines indicate that patients with HgbA1c in the range 5.7-6.4% are at increased risk for development of diabetes, and intervention by lifestyle modification may be beneficial. HgbA1c greater or equal to 6.5% is considered diagnostic of diabetes. Performed By: #### 5 5454-3 #### [facility] CLIA [id number] [address] [place] [address] [place] Iron and Iron binding capaci ty panelon 10-28-2023 Iron [Mass/Vol] 29 ug/dL Low 41-186 [facility] Comment on above: Order Comment: Specimen Type: BLOOD SPEC IMENOrdering Facility: [facility] Address: [address] [place] [address] Performed By: #### 2 276-4, 22133-9 ####[facility] LAB[facility]IA [id number] [place] [address] [place] Iron binding capacity [Mass/Vol] 369 ug/dL Normal 232-386 [facility] Comment on above: Order Comment: Specimen Type: BLOOD SPEC IMENOrdering Facility: [facility] Address: [address] [place] [address] Performed By: #### 2 276-4, 52432-7 ####[facility] LAB[facility]IA [id number] [place] [address] [place] Iron/TIBC [Molar ratio] 7.9 % Low 15.0-57.0 [facility] Comment on above: Order Comment: Specimen Type: BLOOD SPEC IMENOrdering Facility: [facility] Address: [address] [place] [address] Performed By: #### 2 276-4, 56842-6 ####[facility] LAB[facility]IA [id number] [place] [address] [place] PTH-Intact SerPl-mCncon 05-0 Parathyrin.intac t [Mass/Vol] 60 pg/mL Normal 15-65 [facility] Comment on above: Order Comment: Specimen Type: BLOOD SPEC IMEN [facility] Address: [address] [place] [address] Performed By: #### 2 284-8, 2731-8, 2132-9 #### [facility] CLIA [id number] [address] [place] [address] [place] VITAMIN B1 (THIAMINE), WHOLE BLOODon 10-28-2023 Thiamine (Bld) [Moles/Vol] 289.8 nmol/L High 84.3-213.3 [facility] Comment on above: Order Comment: Specimen Type: BLOOD SPEC IMENOrdering Facility: [facility] Address: [address] [place] [address] Result Comment: This assay measures the concentration of thiamine diphosphate (TDP), the primary active form of vitamin B1. Approximately 90 percent of vitamin B1 present in whole blood is TDP. Thiamine and thiamine monophosphate, which comprise the remaining 10 percent, are not measured. This test was developed and its performance characteristics determined by [facility]'s [facility] [place] (-[facility]). It has not been cleared or approved by the FDA. -[facility] is regulated under CLIA as qualified to perform high-complexity testing. This test is used for clinical purposes. It should not be regarded as investigational or for research. Performed By: #### B 1WB ####[facility] LAB[facility]IA [id number] [place] [address] [place] VITAMIN John 10-28-2023 VITAMIN K 6.74 nmol/L High 0.22-4.88 [facility] Comment on above: Order Comment: Specimen Type: BLOOD SPEC IMEN [facility] Address: [address] [place] [address] Result Comment: Elevated vitamin K concentration may be associated with increased lipid concentration. INTERPRETIVE INFORMATION: Vitamin K1, Serum Vitamin K concentration is reported as nanomoles per liter (nmol/L). To convert concentration to nanograms per milliliter (ng/mL), multiply the result by 0.45. This test was developed and its performance characteristics determined by [employer]. It has not been cleared or approved by the US Food and Drug Administration. This test was performed in a CLIA certified laboratory and is intended for clinical purposes. Performed By: [facility] [address] [place] [address] Scrap Crane Operator: John Newsome MD, PhD CLIA Number: [id number] Performed By: #### 2 284-8, 2731-8, 2132-9 #### [facility] CLIA [id number] [address] [place] [address] [place] Vit A SerPl-mCncon 4 Retinol [Mass/Vol] 0.37 mg/L Normal 0.30-1.20 [facility] Comment on above: Order Comment: Specimen Type: BLOOD SPEC IMENOrdering Facility: [facility] Address: [address] [place] [address] Result Comment: This test was developed and its performance characteristics determined by [facility]'s [facility] [facility] [place] ([facility]). It has not been cleared or approved by the FDA. [facility] is regulated under CLIA as qualified to perform high-complexity testing. This test is used for clinical purposes. It should not be regarded as investigational or for research. Performed By: #### 2 923-1, 1823-4 ####[facility] LAB[facility]IA [id number] [place] [address] [place] Vit B12 SerPl[facility]24 Cobalamin (Vitamin B12) [Mass/Vol] 817 pg/mL Normal 232-1245 [facility] Comment on above: Order Comment: Specimen Type: BLOOD SPEC IMEN [facility] Address: [address] [place] [address] Performed By: #### 2 284-8, 8, 2132-02 #### [facility] CLIA [id number] [address] [place] [address] [place] Zinc SerPl-[facility] 10-28-2023 Zinc [Mass/Vol] 45 ug/dL Low 60-120 [facility] Comment on above: Order Comment: Specimen Type: BLOOD SPEC IMEN [facility] Address: [address] [place] [address] Result Comment: This test was developed and its performance characteristics determined by [facility] [place] ([facility] It has not been cleared or approved by the FDA. -[facility] is regulated under CLIA as qualified to perform high-complexity testing. This test is used for clinical purposes. It should not be regarded as investigational or for research. Performed By: #### 2 284-8, 2730-8, 2132-02 #### [facility] CLIA [id number] [address] [place] [address] [place] BASIC METABOLIC PANLon 10-19 Anion gap [Moles/Vol] 12 mmol/L Normal 5-15 [facility] Comment on above: Performed By: #### BMP #### [facility] ([id number]) [address] [place] [address], [address] [place] [address] Calcium [Mass/Vol] 9.7 mg/dL Normal 8.5-10.5 [facility] Comment on above: Performed By: #### BMP #### [facility] ([id number]) [address] [place] [address], [address] [place] [address] Chloride [Moles/Vol] 100 mmol/L Normal 98-109 [facility] Comment on above: Performed By: #### BMP #### [facility] ([id number]) [address], [address] [place] [address] CO2 [Moles/Vol] 25 mmol/L Normal 22-32 [facility] [facility] Comment on above: Performed By: #### BMP #### [facility] ([id number]) [address], [address] [place] [address] Creatinine [Mass/Vol] 0.72 mg/dL Normal 0.40-1.00 [facility] Comment on above: Result Comment: METHOD TRACEABLE TO IDMS STANDARD Performed By: #### B MP #### [facility] ([id number]) [address] [place] [address] eGFR (CKD-EPI) NON-RACE DEPENDENT >90 Normal >59 [facility] Comment on above: Result Comment: Reported eGFR is based on the CKD-EPI 2020 equation that does not use a race coefficient. Performed By: #### B MP #### [facility] ([id number]) [address], [address] [place] [address] Glucose [Mass/Vol] 89 mg/dL Normal 65-99 [facility] Comment on above: Performed By: #### BMP #### [facility] ([id number]) [address] [place] [address] Potassium [Moles/Vol] 4.0 mmol/L Normal 3.5-5.0 [facility] Comment on above: Performed By: #### BMP #### [facility] ([id number]) [address], [address] [place] [address] Sodium [Moles/Vol] 137 mmol/L Normal 134-146 [facility] Comment on above: Performed By: #### BMP #### [facility] ([id number]) [address], [address] [place] [address] Urea nitrogen [Mass/Vol] 18 mg/dL Normal 5-23 [facility] Comment on above: Performed By: #### BMP #### [facility] ([id number]) [address] [place] [address] CNOVon 09-07-2023 CNOV Office Visit (BMINO) ANGELSUSI A ([id number]) 1985 F FNS Date Time Provider Department 09/07/23 9:30 AM JAYSHREE HUFFMAN During your visit today, we recorded the following information about you: Temperature Pulse Blood pressure Weight 98 degrees 80/minute 107/81 169.9 kg Height 1.626 m Jayshree Huffman APRN.ENTRY LEVEL 09/07/2023 10:12 AM Signed BMI SURGERY Post [...] loss: 6.128 kg (13 lb 8.2 oz) [place] weight: 66.1 kg (145 lb 10.6 oz) [...] Orders FOLLOW UP: as scheduled Jayshree Huffman APRN.ENTRY LEVEL Referring Provider: JOE GRANDA [[id number]] Allergies As of Date: 09/07/2023 Noted Allergy Reaction AD (more content not included)... Normal [facility] ANES POSTPROC EVALon 024 ANES POSTPROC EVAL HNO ID: [id number] Author: AMANDA ALCANTAR DO Service: Anesthesiology Author Type: Physician Type: Anesthesia Postprocedure Evaluation Filed: 08/17/2023 12:02 Note Text: POST ANESTHESIA EVALUATION NOTE : 1985 Procedure Summary Date: 08/04/23 Room / Location: OR06 / FV OR Anesthesia Start: 832 Anesthesia Stop: 151 Procedure: GASTRECTOMY, GASTRIC RESTRICTIVE PARTIAL (50 TO [...] Amanda Alcantar DO PATIENT NAME: Susi Naqvi Angel DATE: August 17, 2023 TIME: 11:37 AM CSN: [id number] [facility] CNOVon 08-17-2023 CNOV Office Visit (BMIREJ ) ANGELSUSI Naqvi ([id number]) 1985 F FNS Date Time Provider Department 08/17/23 10:00 AM JAYSHREE HUFFMAN BMIREJ During your visit today, we recorded the following information about you: Temperature Pulse Blood pressure Weight 97.3 degrees 75/minute 117/75 167.8 kg Height 1.626 m Jayshree HuffmanKRISH 08/17/2023 10:41 AM Signed Assessment BMI Surgical [...] loss: 8.2 kg (18 lb 1.2 oz) [place] weight: 66.1 kg (145 lb 10.6 oz) [...] 07/08/2023 (Approximate) SpO2 97% BMI 63.50 kg/m? ARMOND, hayden, BRANDY Incision: dermabond prineo intact over entire incision, [...] advance diet (more content not included)... Normal [facility] SUSI ORTIZ ([id number]) 1985 F FNS Date Time Provider Department 08/13/23 NIKI PETERSON GENBMI During your visit today, we recorded the following information about you: Niki Peterson RN 08/13/2023 12:14 PM Signed BMI SPECIALTY [...] appt. Reminded patient of how to reach [facility] or their surgeons office. Patient reminded to seek medical attention if they develop chest pain, a sudden onset of shortness of breath or persistent pain in the calf of their legs - BEST TO ALWAYS present to [facility] hospital where you had your surgery Patient verbalized understanding of all advice and instructions given. Niki Peterson RN Allergies As of Date: 08/13/2023 Noted Allergy Reaction ADHES. [id number] 03/13/2015 2 - Rash ADHESIVE TAPE-SILICONES 05/06/2019 [...] affective dis (more content not included)... Normal [facility] Basic metabolic 2000 panelon 08-11-2023 Anion gap [Moles/Vol] 13 mmol/L Normal 9-18 [facility] Comment on above: Order Comment: Specimen Type: BLOOD SPEC IMENOrdering Facility: [facility] Address: [address] [place] [address] Performed By: #### 1 9123-9, 2777-, 29160-0 ####[facility]ORY[facility] [id number] [place] [id number] [place] Calcium [Mass/Vol] 8.8 mg/dL Normal 8.5-10.2 [facility] Comment on above: Order Comment: Specimen Type: BLOOD SPEC IMENOrdering Facility: [facility] Address: [address] [place] [address] Performed By: #### 1 9123-9, 2777, 60026-6 ####[facility]ORATORYCLIA [id number] [place] [id number] [place] Chloride [Moles/Vol] 105 mmol/L Normal 97-105 [facility] Comment on above: Order Comment: Specimen Type: BLOOD SPEC IMENOrdering Facility: [facility] Address: [address] [place] [address] Performed By: #### 1 9123-9, 2777, 66124-5 ####[facility]ORATORYCLIA [id number] [place] [id number] [place] CO2 [Moles/Vol] 20 mmol/L Low 22-30 [facility] Comment on above: Order Comment: Specimen Type: BLOOD SPEC IMENOrdering Facility: [facility] Address: [facility] [place] [address] Performed By: #### 1 9123-9, 2777-, 21478-5 ####[facility]ATORYCLIA [id number] [place] [id number] [place] Creatinine [Mass/Vol] 0.57 mg/dL Low 0.58-0.96 [facility] Comment on above: Order Comment: Specimen Type: BLOOD SPEC IMENOrdering Facility: [facility] Address: [address] [place] [address] Performed By: #### 1 9123-9, 2777-1, 11878-3 ####[facility]ORATORYCLIA [id number] [place] [id number] [place] Creatinine and Glomerular filtration rate.predicted panel (S/P/Bld) 119 mL/min/1.73m??? Normal >=60 [facility] Comment on above: Order Comment: Specimen Type: BLOOD SPEC IMENOrdering Facility: [facility] Address: [address] [place] [address] Result Comment: Janet mated Glomerular Filtration Rate [...] GFR. Performed By: #### 1 9123-9, 2777-1, 90443-0 ####[facility]ATORYCLIA [id number] [place] [id number] [place] Glucose [Mass/Vol] 92 mg/dL Normal 74-99 [facility] Comment on above: Order Comment: Specimen Type: BLOOD SPEC IMENOrdering Facility: [facility] Address: [address] [place] [address] Result Comment: The [place] Diabetes Association (ADA) provides guidance for cutoff [...] Standards of Medical Care in Diabetes 2016, [place] [employer]. Diabetes Care. 2016.39(Suppl 1). Performed By: #### 1 9123-9, 2777-1, 37334-4 ####[facility] LABORATORYCLIA [id number] [place] [address] [place] Potassium [Moles/Vol] 4.2 mmol/L Normal 3.7-5.1 [facility] Comment on above: Order Comment: Specimen Type: BLOOD SPEC IMENOrdering Facility: [facility] Address: [address] [place] [address] Performed By: #### 1 9123-9, 2777-, 27605-1 ####[facility] LABORATORYCLIA [id number] [place] [id number] [place] Sodium [Moles/Vol] 138 mmol/L Normal 136-144 [facility] Comment on above: Order Comment: Specimen Type: BLOOD SPEC IMENOrdering Facility: [facility] Address: [address] [place] [address] Performed By: #### 1 9123-9, 2777-, 32262-3 ####[facility]ORATORYCLIA [id number] [place] [id number] [place] Urea nitrogen [Mass/Vol] 3 mg/dL Low 7-21 [facility] Comment on above: Order Comment: Specimen Type: BLOOD SPEC IMENOrdering Facility: [facility] Address: [address] [place] [address] Performed By: #### 1 9123-9, 2777-, 96362-1 ####[facility]ORATORYCLIA [id number] [place] [id number] [place] CBC W Auto Differential pane l (Bld)on 08-11-2023 Basophils (Bld) [#/Vol] 0.00 10*3/uL Normal <0.11 [facility] Comment on above: Order Comment: Specimen Type: BLOOD SPEC IMENOrdering Facility: [facility] Address: [address] [place] [address] Performed By: #### 5 7021-8 ####[facility] LABORATORYCLIA [id number] [place] [address] [place] Basophils/100 WBC (Bld) 0.0 % Normal [facility] Comment on above: Order Comment: Specimen Type: BLOOD SPEC IMENOrdering Facility: [facility] Address: [address] [place] [address] Performed By: #### 5 7021-8 ####[facility] LABORATORYCLIA [id number] [place] [id number] [place] Differential cell count method Nom (Bld) Manual Normal [facility] Comment on above: Order Comment: Specimen Type: BLOOD SPEC IMENOrdering Facility: [facility] Address: [address] [place] [address] Performed By: #### 5 7021-8 ####[facility] LABORATORYCLIA [id number] [place] [address] [place] Eosinophils (Bld) [#/Vol] 0.62 10*3/uL High <0.46 [facility] Comment on above: Order Comment: Specimen Type: BLOOD SPEC IMENOrdering Facility: [facility] Address: [address] [place] [address] Performed By: #### 5 7021-8 ####[facility] LABORATORYCLIA [id number] [address] [place] Eosinophils/100 WBC (Bld) 4.0 % Normal [facility] Comment on above: Order Comment: Specimen Type: BLOOD SPEC IMENOrdering Facility: [facility] Address: [address] [place] [address] Performed By: #### 5 7021-8 ####[facility] LABORATORYCLIA [id number] [place] [id number] [place] Erythrocyte distribution width (RBC) [Ratio] 14.8 % Normal 11.5-15.0 [facility] Comment on above: Order Comment: Specimen Type: BLOOD SPEC IMENOrdering Facility: [facility] Address: [address] [place] [address] Performed By: #### 5 7021-8 ####[facility] LABORATORYCLIA [id number] [address] [place] Hematocrit (Bld) [Volume fraction] 36.9 % Normal 36.0-46.0 [facility] Comment on above: Order Comment: Specimen Type: BLOOD SPEC IMENOrdering Facility: [facility] Address: [address] [place] [address] Performed By: #### 5 7021-8 ####[facility] LABORATORYCLIA [id number] [place] [id number] [place] Hemoglobin (Bld) [Mass/Vol] 11.8 g/dL Normal 11.5-15.5 [facility] Comment on above: Order Comment: Specimen Type: BLOOD SPEC IMENOrdering Facility: [facility] Address: [address] [place] [address] Performed By: #### 5 7021-8 ####[facility] LABORATORYCLIA [id number] [place] [address] [place] Lymphocytes (Bld) [#/Vol] 3.59 10*3/uL Normal 1.00-4.00 [facility] Comment on above: Order Comment: Specimen Type: BLOOD SPEC IMENOrdering Facility: [facility] Address: [address] [place] [address] Performed By: #### 5 7021-8 ####[facility] LABORATORYCLIA [id number] [address] [place] Lymphocytes/100 WBC (Bld) 22.0 % Normal [facility] Comment on above: Order Comment: Specimen Type: BLOOD SPEC IMENOrdering Facility: [facility] Address: [address] [place] [address] Performed By: #### 5 7021-8 ####[facility] LABORATORYCLIA [id number] [place] [id number] [place] MCH (RBC) [Entitic mass] 29.6 pg Normal 26.0-34.0 [facility] Comment on above: Order Comment: Specimen Type: BLOOD SPEC IMENOrdering Facility: [facility] Address: [address] [place] [address] Performed By: #### 5 7021-8 ####[facility] LABORATORYCLIA [id number] [place] [id number] [place] MCHC (RBC) [Mass/Vol] 32.0 g/dL Normal 30.5-36.0 [facility] Comment on above: Order Comment: Specimen Type: BLOOD SPEC IMENOrdering Facility: [facility] Address: [address] [place] [address] Performed By: #### 5 7021-8 ####[facility] LABORATORYCLIA [id number] [place] [id number] [place] MCV (RBC) [Entitic vol] 92.7 fL Normal 80.0-100.0 [facility] Comment on above: Order Comment: Specimen Type: BLOOD SPEC IMENOrdering Facility: [facility] Address: [address] [place] [address] Performed By: #### 5 7021-8 ####[facility] LABORATORYCLIA [id number] [place] [id number] [place] Monocytes (Bld) [#/Vol] 1.56 10*3/uL High <0.87 [facility] Comment on above: Order Comment: Specimen Type: BLOOD SPEC IMENOrdering Facility: [facility] Address: [address] [place] [address] Performed By: #### 5 7021-8 ####[facility] LABORATORYCLIA [id number] [place] [id number] [place] Monocytes/100 WBC (Bld) 10.0 % Normal [facility] Comment on above: Order Comment: Specimen Type: BLOOD SPEC IMENOrdering Facility: [facility] Address: [address] [place] [address] Performed By: #### 5 7021-8 ####[facility] LABORATORYCLIA [id number] [place] [id number] [place] Neutrophils (Bld) [#/Vol] 9.83 10*3/uL High 1.45-7.50 [facility] Comment on above: Order Comment: Specimen Type: BLOOD SPEC IMENOrdering Facility: [facility] Address: [address] [place] [address] Performed By: #### 5 7021-8 ####[facility] LABORATORYCLIA [id number] [place] [id number] [place] Neutrophils/100 WBC (Bld) 63.0 % Normal [facility] Comment on above: Order Comment: Specimen Type: BLOOD SPEC IMENOrdering Facility: [facility] Address: [address] [place] [address] Performed By: #### 5 7021-8 ####[facility] LABORATORYCLIA [id number] [place] [id number] [place] Nucleated RBC (Bld) [#/Vol] 0.16 10*3/uL High <0.01 [facility] Comment on above: Order Comment: Specimen Type: BLOOD SPEC IMENOrdering Facility: [facility] Address: [address] [place] [address] Performed By: #### 5 7021-8 ####[facility] LABORATORYCLIA [id number] [place] [id number] [place] Nucleated RBC/100 WBC (Bld) [Ratio] 1.0 /100 WBC Normal [facility] Comment on above: Order Comment: Specimen Type: BLOOD SPEC IMENOrdering Facility: [facility] Address: [address] [place] [address] Performed By: #### 5 7021-8 ####[facility] LABORATORYCLIA [id number] [place] [id number] [place] Platelet mean volume (Bld) [Entitic vol] 9.4 fL Normal 9.0-12.7 [facility] Comment on above: Order Comment: Specimen Type: BLOOD SPEC IMENOrdering Facility: [facility] Address: [address] [place] [address] Performed By: #### 5 7021-8 ####[facility] LABORATORYCLIA [id number] [place] [id number] [place] Platelets (Bld) [#/Vol] 579 10*3/uL High 150-400 [facility] Comment on above: Order Comment: Specimen Type: BLOOD SPEC IMENOrdering Facility: [facility] Address: [address] [place] [address] Performed By: #### 5 7021-8 ####[facility] LABORATORYCLIA [id number] [place] [id number] [facility] [place] Platelets Estimate (Bld) [#/Vol] Increased Normal [facility] Comment on above: Order Comment: Specimen Type: BLOOD SPEC IMENOrdering Facility: [facility] Address: [address] [place] [address] Performed By: #### 5 7021-8 ####[facility] LABORATORYCLIA [id number] [address] [place] Polychromasia LM Ql (Bld) Slight Normal [facility] Comment on above: Order Comment: Specimen Type: BLOOD SPEC IMENOrdering Facility: [facility] Address: [address] [place] [address] Performed By: #### 5 7021-8 ####[facility] LABORATORYCLIA [id number] [address] [place] RBC (Bld) [#/Vol] 3.98 10*6/uL Normal 3.90-5.20 [facility] Comment on above: Order Comment: Specimen Type: BLOOD SPEC IMENOrdering Facility: [facility] Address: [address] [place] [address] Performed By: #### 5 7021-8 ####[facility] LABORATORYCLIA [id number] [address] [place] RED CELL MORPH Reviewed: see result s of individual morphologies Normal [facility] Comment on above: Order Comment: Specimen Type: BLOOD SPEC IMENOrdering Facility: [facility] Address: [address] [place] [address] Performed By: #### 5 7021-8 ####[facility] LABORATORYCLIA [id number] [address] [place] Target cells LM Ql (Bld) Few Normal [facility] Comment on above: Order Comment: Specimen Type: BLOOD SPEC IMENOrdering Facility: [facility] Address: Former[facility] [place] [address] Performed By: #### 5 7021-8 ####[facility] LABORATORYCLIA [id number] [place] [id number] [place] [facility] Variant lymphocytes/100 WBC (Bld) 1.0 % Normal [facility] Comment on above: Order Comment: Specimen Type: BLOOD SPEC IMENOrdering Facility: [facility] Address: [address] [place] [address] Performed By: #### 5 7021-8 ####[facility] LABORATORYCLIA [id number] [place] [id number] [place] WBC (Bld) [#/Vol] 15.61 10*3/uL High 3.70-11.00 [facility] Comment on above: Order Comment: Specimen Type: BLOOD SPEC IMENOrdering Facility: [facility] Address: [address] [place] [address] Performed By: #### 5 7021-8 ####[facility] LABORATORYCLIA [id number] [place] [id number] [facility] CNDSon 08-11-2023 CNDS HNO ID: [id number] Author: JOE GRANDA MD Service: General Surgery Author Type: Physician Type: Discharge Summary Filed: 08/12/2023 09:13 Note Text: DISCHARGE SUMMARY PATIENT NAME: Susi Borjahip ADMISSION DATE: 08/04/2023 DISCHARGE DATE: 08/11/2023 Attending: [...] Your Medications These medications were sent to [facility] [address] [place] [address] Hours: Thursday-Thursday: 7am-7pm, Sat: 9am-1pm acetaminophen 500 mg tablet enoxaparin 60 mg/0.6 mL Syrg ondansetron orally disintegrating 4 mg disintegrating tablet oxyCODONE IR 5 mg immediate release tablet pantoprazole DR 40 mg tablet Appointments for Next 60 Days Date Time Provider Location Dept Phone 08/17/2023 10:00 AM JAYSHREE HUFFMAN [phone] 08/19/2023 11:45 AM ALEX MONSIVAIS [phone] 08/31/2023 9:45 AM RUPINDER COLBERT [facility] [phone] 08/31/2023 10:30 AM CHRISTOPHER SANTIAGO [facility] [phone] 09/07/2023 1:30 PM JAYSHREE HUFFMAN [phone] Highest Readmission Risk Score: 11 The 30 [...] Resulted Calcium (more content not included)... Normal [facility] Magnesium SerPl-mCncon 08-11 Magnesium [Mass/Vol] 2.0 mg/dL Normal 1.7-2.3 [facility] Comment on above: Order Comment: Specimen Type: BLOOD SPEC IMENOrdering Facility: [facility] Address: [address] [place], [place] [address] Performed By: #### 1 9123-9, 2777-1, 69426-3 ####[facility] LABORATORYCLIA [id number] [place] [id number] [place] NURSING PROGon 08-11-2023 NURSING PROG HNO ID: [id number] Author: KIRA VANCE RN Service: ? Author [...] contact provider if anything changes occur. Normal [facility] Phosphate SerPl-mCncon 08-11 Phosphate [Mass/Vol] 4.3 mg/dL Normal 2.7-4.8 [facility] Comment on above: Order Comment: Specimen Type: BLOOD SPEC IMENOrdering Facility: [facility] Address: [address] [place] [address] Performed By: #### 1 9123-9, 2777-1, 51833-7 ####[facility] LABORATORYCLIA [id number] [place] [id number] [place] Basic metabolic 2000 panelon 08-10-2023 Anion gap [Moles/Vol] 12 mmol/L Normal 9-18 [facility] Comment on above: Order Comment: Specimen Type: BLOOD SPEC IMENOrdering Facility: [facility] Address: [address] [place] [address] Performed By: #### 1 9123-9, 08442-7, 2777- ####[facility] LABORATORYCLIA [id number] [place] [id number] [place] Calcium [Mass/Vol] 8.7 mg/dL Normal 8.5-10.2 [facility] Comment on above: Order Comment: Specimen Type: BLOOD SPEC IMENOrdering Facility: [facility] Address: [address] [place] [address] Performed By: #### 1 9123-9, 48772-8, 2776- ####[facility] LABORATORYCLIA [id number] [place] [id number] [place] Chloride [Moles/Vol] 104 mmol/L Normal 97-105 [facility] Comment on above: Order Comment: Specimen Type: BLOOD SPEC IMENOrdering Facility: [facility] Address: [address] [place] [address] Performed By: #### 1 9123-9, 23666-1, 2776-06 ####[facility] LABORATORYCLIA [id number] [place] [address] [place] CO2 [Moles/Vol] 24 mmol/L Normal 22-30 [facility] Comment on above: Order Comment: Specimen Type: BLOOD SPEC IMENOrdering Facility: [facility] Address: [address] [place] [address] Performed By: #### 1 9123-9, 32339-5, 2776-06 ####[facility] LABORATORYCLIA [id number] [place] [id number] [place] Creatinine [Mass/Vol] 0.65 mg/dL Normal 0.58-0.96 [facility] Comment on above: Order Comment: Specimen Type: BLOOD SPEC IMENOrdering Facility: [facility] Address: [address] [place] [address] Performed By: #### 1 9123-9, 55126-4, 2776-06 ####[facility] LABORATORYCLIA [id number] [place] [id number] [facility] [place] Creatinine and Glomerular filtration rate.predicted panel (S/P/Bld) 116 mL/min/1.73m??? Normal >=60 [facility] Comment on above: Order Comment: Specimen Type: BLOOD SPEC IMENOrdering Facility: [facility] Address: [address] [place] [address] Result Comment: Janet mated Glomerular Filtration Rate [...] actual GFR. Performed By: #### 1 9123-9, 81435-4, 2776-06 ####[facility] LABORATORYCLIA [id number] [place] [address] [place] Glucose [Mass/Vol] 91 mg/dL Normal 74-99 [facility] Comment on above: Order Comment: Specimen Type: BLOOD SPEC IMENOrdering Facility: [facility] Address: [address] [place] [address] Result Comment: The [place] [employer] (ADA) provides guidance for cutoff [...] Standards of Medical Care in Diabetes 2016, [place] [employer]. Diabetes Care. 2016.39(Suppl 1). Performed By: #### 1 9123-9, 92568-4, 2776-06 ####[facility] LABORATORYCLIA [id number] [place] [id number] [place] Potassium [Moles/Vol] 3.4 mmol/L Low 3.7-5.1 [facility] Comment on above: Order Comment: Specimen Type: BLOOD SPEC IMENOrdering Facility: [facility] Address: [address] [place] [address] Performed By: #### 1 9123-9, 20195-8, 2776- ####[facility] LABORATORYCLIA [id number] [place] [address] [place] Sodium [Moles/Vol] 140 mmol/L Normal 136-144 [facility] Comment on above: Order Comment: Specimen Type: BLOOD SPEC IMENOrdering Facility: [facility] Address: [address] [place] [address] Performed By: #### 1 9123-9, 23332-0, 2777-1 ####[facility] LABORATORYCLIA [id number] [place] [id number] [place] Urea nitrogen [Mass/Vol] 3 mg/dL Low 7-21 [facility] Comment on above: Order Comment: Specimen Type: BLOOD SPEC IMENOrdering Facility: [facility] Address: [address] [place] [address] Performed By: #### 1 9123-9, 19492-0, 2777- ####[facility] LABORATORYCLIA [id number] [address] [place] CBC W Auto Differential pane l (Bld)on 08-10-2023 Basophils (Bld) [#/Vol] 0.08 10*3/uL Normal <0.11 [facility] Comment on above: Order Comment: Specimen Type: BLOOD SPEC IMENOrdering Facility: [facility] Address: [address] [place] [address] Performed By: #### 5 7021-8 ####GEORGE LABORATORYCLIA [id number] [place] [id number] [place] Basophils/100 WBC (Bld) 0.6 % Normal [facility] Comment on above: Order Comment: Specimen Type: BLOOD SPEC IMENOrdering Facility: [facility] Address: [address] [place] [address] Performed By: #### 5 7021-8 ####GEORGE LABORATORYCLIA [id number] [address] [place] Differential cell count method Nom (Bld) Auto Normal [facility] Comment on above: Order Comment: Specimen Type: BLOOD SPEC IMENOrdering Facility: [facility] Address: [address] [place] [address] Performed By: #### 5 7021-8 ####[facility] LABORATORYCLIA [id number] [place] [id number] [place] Eosinophils (Bld) [#/Vol] 0.78 10*3/uL High <0.46 [facility] Comment on above: Order Comment: Specimen Type: BLOOD SPEC IMENOrdering Facility: [facility] Address: [address] [place] [address] Performed By: #### 5 7021-8 ####[facility] LABORATORYCLIA [id number] [place] [address] [place] Eosinophils/100 WBC (Bld) 5.6 % Normal [facility] Comment on above: Order Comment: Specimen Type: BLOOD SPEC IMENOrdering Facility: [facility] Address: [address] [place] [address] Performed By: #### 5 7021-8 ####GEORGE LABORATORYCLIA [id number] [place] [address] [place] Erythrocyte distribution width (RBC) [Ratio] 14.7 % Normal 11.5-15.0 [facility] Comment on above: Order Comment: Specimen Type: BLOOD SPEC IMENOrdering Facility: [facility] Address: [address] [place] [address] Performed By: #### 5 7021-8 ####GEORGE LABORATORYCLIA [id number] [place] [id number] [place] Hematocrit (Bld) [Volume fraction] 36.9 % Normal 36.0-46.0 [facility] Comment on above: Order Comment: Specimen Type: BLOOD SPEC IMENOrdering Facility: [facility] Address: [address] [place] [address] Performed By: #### 5 7021-8 ####[facility] LABORATORYCLIA [id number] [place] [id number] [facility] [place] Hemoglobin (Bld) [Mass/Vol] 11.6 g/dL Normal 11.5-15.5 [facility] Comment on above: Order Comment: Specimen Type: BLOOD SPEC IMENOrdering Facility: [facility] Address: [address] [place] [address] Performed By: #### 5 7021-8 ####[facility] LABORATORYCLIA [id number] [place] [id number] [place] Immature granulocytes (Bld) [#/Vol] 0.11 10*3/uL High <0.10 [facility] Comment on above: Order Comment: Specimen Type: BLOOD SPEC IMENOrdering Facility: [facility] Address: [address] [place] [address] Performed By: #### 5 7021-8 ####[facility] LABORATORYCLIA [id number] [place] [id number] [facility] [place] Immature granulocytes/100 WBC (Bld) 0.8 % Normal [facility] Comment on above: Order Comment: Specimen Type: BLOOD SPEC IMENOrdering Facility: [facility] Address: [address] [place] [address] Performed By: #### 5 7021-8 ####[facility] LABORATORYCLIA [id number] [place] [address] [place] Lymphocytes (Bld) [#/Vol] 4.03 10*3/uL High 1.00-4.00 [facility] Comment on above: Order Comment: Specimen Type: BLOOD SPEC IMENOrdering Facility: [facility] Address: [address] [place] [address] Performed By: #### 5 7021-8 ####[facility] LABORATORYCLIA [id number] [place] [id number] [place] Lymphocytes/100 WBC (Bld) 28.8 % Normal [facility] Comment on above: Order Comment: Specimen Type: BLOOD SPEC IMENOrdering Facility: [facility] Address: [address] [place] [address] Performed By: #### 5 7021-8 ####[facility] LABORATORYCLIA [id number] [place] [address] [place] MCH (RBC) [Entitic mass] 29.2 pg Normal 26.0-34.0 [facility] Comment on above: Order Comment: Specimen Type: BLOOD SPEC IMENOrdering Facility: [facility] Address: [address] [place] [address] Performed By: #### 5 7021-8 ####[facility] LABORATORYCLIA [id number] [place] [id number] [place] MCHC (RBC) [Mass/Vol] 31.4 g/dL Normal 30.5-36.0 [facility] Comment on above: Order Comment: Specimen Type: BLOOD SPEC IMENOrdering Facility: [facility] Address: [address] [place] [address] Performed By: #### 5 7021-8 ####[facility] LABORATORYCLIA [id number] [place] [address] [place] MCV (RBC) [Entitic vol] 92.9 fL Normal 80.0-100.0 [facility] Comment on above: Order Comment: Specimen Type: BLOOD SPEC IMENOrdering Facility: [facility] Address: [address] [place] [address] Performed By: #### 5 7021-8 ####[facility] LABORATORYCLIA [id number] [place] [address] [place] Monocytes (Bld) [#/Vol] 1.33 10*3/uL High <0.87 [facility] Comment on above: Order Comment: Specimen Type: BLOOD SPEC IMENOrdering Facility: [facility] Address: [address] [place] [address] Performed By: #### 5 7021-8 ####[facility] LABORATORYCLIA [id number] [place] [id number] [place] Monocytes/100 WBC (Bld) 9.5 % Normal [facility] Comment on above: Order Comment: Specimen Type: BLOOD SPEC IMENOrdering Facility: [facility] Address: [address] [place] [address] Performed By: #### 5 7021-8 ####[facility] LABORATORYCLIA [id number] [place] [id number] [place] Neutrophils (Bld) [#/Vol] 7.66 10*3/uL High 1.45-7.50 [facility] Comment on above: Order Comment: Specimen Type: BLOOD SPEC IMENOrdering Facility: [facility] Address: [address] [place] [address] Performed By: #### 5 7021-8 ####[facility] LABORATORYCLIA [id number] [place] [id number] [place] Neutrophils/100 WBC (Bld) 54.7 % Normal [facility] Comment on above: Order Comment: Specimen Type: BLOOD SPEC IMENOrdering Facility: [facility] Address: [address] [place] [address] Performed By: #### 5 7021-8 ####[facility] LABORATORYCLIA [id number] [place] [address] [place] Nucleated RBC (Bld) [#/Vol] 0.03 10*3/uL High <0.01 [facility] Comment on above: Order Comment: Specimen Type: BLOOD SPEC IMENOrdering Facility: [facility] Address: [address] [place] [address] Performed By: #### 5 7021-8 ####[facility] LABORATORYCLIA [id number] [place] [address] [place] Nucleated RBC/100 WBC (Bld) [Ratio] 0.2 /100 WBC Normal [facility] Comment on above: Order Comment: Specimen Type: BLOOD SPEC IMENOrdering Facility: [facility] Address: [address] [place] [address] Performed By: #### 5 7021-8 ####[facility] LABORATORYCLIA [id number] [place] [address] [place] Platelet mean volume (Bld) [Entitic vol] 9.9 fL Normal 9.0-12.7 [facility] Comment on above: Order Comment: Specimen Type: BLOOD SPEC IMENOrdering Facility: [facility] Address: [address] [place] [address] Performed By: #### 5 7021-8 ####GEOR[facility] LABORATORYCLIA [id number] [address] [place] Platelets (Bld) [#/Vol] 557 10*3/uL High 150-400 [facility] Comment on above: Order Comment: Specimen Type: BLOOD SPEC IMENOrdering Facility: [facility] Address: [address] [place] [address] Performed By: #### 5 7021-8 ####[facility] LABORATORYCLIA [id number] [place] [id number] [place] RBC (Bld) [#/Vol] 3.97 10*6/uL Normal 3.90-5.20 [facility] Comment on above: Order Comment: Specimen Type: BLOOD SPEC IMENOrdering Facility: [facility] Address: [address] [place] [address] Performed By: #### 5 7021-8 ####[facility] LABORATORYCLIA [id number] [place] [address] [place] WBC (Bld) [#/Vol] 13.99 10*3/uL High 3.70-11.00 [facility] Comment on above: Order Comment: Specimen Type: BLOOD SPEC IMENOrdering Facility: [facility] Address: [address] [place] [address] Performed By: #### 5 7021-8 ####[facility] LABORATORYCLIA [id number] [place] [id number] [facility] [place] Magnesium SerPl-mCncon 08-10 Magnesium [Mass/Vol] 1.8 mg/dL Normal 1.7-2.3 [facility] Comment on above: Order Comment: Specimen Type: BLOOD SPEC IMENOrdering Facility: [facility] Address: [address] [place] [address] Performed By: #### 1 9123-9, 36697-2, 2777-1 ####[facility] LABORATORYCLIA [id number] [place] [id number] [facility] [place] NURSING PROGon 08-10-2023 NURSING PROG HNO ID: [id number] Author: SUDHA WELCH RN Service: ? Author Type: Registered Nurse [...] possible home today, continue to monitor. Normal [facility] Phosphate SerPl-mCncon 08-10 Phosphate [Mass/Vol] 4.2 mg/dL Normal 2.7-4.8 [facility] Comment on above: Order Comment: Specimen Type: BLOOD SPEC IMENOrdering Facility: [facility] Address: [address] [place] [address] Performed By: #### 1 9123-9, 16271-5, 2777-1 ####[facility] LABORATORYCLIA [id number] [place] [address] [place] Basic metabolic 2000 panelon 08-09-2023 Anion gap [Moles/Vol] 12 mmol/L Normal 9-18 [facility] Comment on above: Order Comment: Specimen Type: BLOOD SPEC IMENOrdering Facility: [facility] Address: [address] [place] [id number] Performed By: #### 2 777-1, , 04746-2 ####[facility] LABORATORYCLIA [id number] [place] [id number] [place] Calcium [Mass/Vol] 8.3 mg/dL Low 8.5-10.2 [facility] Comment on above: Order Comment: Specimen Type: BLOOD SPEC IMENOrdering Facility: [facility] Address: [address] [place] [address] Performed By: #### 2 777-1, , 70800-6 ####[facility] LABORATORYCLIA [id number] [place] [id number] [place] Chloride [Moles/Vol] 103 mmol/L Normal 97-105 [facility] Comment on above: Order Comment: Specimen Type: BLOOD SPEC IMENOrdering Facility: [facility] Address: [address] [place] [address] Performed By: #### 2 777-1, , ####[facility] LABORATORYCLIA [id number] [place] [id number] [place] CO2 [Moles/Vol] 22 mmol/L Normal 22-30 [facility] Comment on above: Order Comment: Specimen Type: BLOOD SPEC IMENOrdering Facility: [facility] Address: [address] [place] [address] Performed By: #### 2 777-1, , ####[facility] LABORATORYCLIA [id number] [place] [id number] [place] Creatinine [Mass/Vol] 0.59 mg/dL Normal 0.58-0.96 [facility] Comment on above: Order Comment: Specimen Type: BLOOD SPEC IMENOrdering Facility: [facility] Address: [address] [place] [address] Performed By: #### 2 777-1, , ####[facility] LABORATORYCLIA [id number] [place] [id number] [place] Creatinine and Glomerular filtration rate.predicted panel (S/P/Bld) 118 mL/min/1.73m??? Normal >=60 [facility] Comment on above: Order Comment: Specimen Type: BLOOD SPEC IMENOrdering Facility: [facility] Address: [address] [place] [address] Result Comment: Janet mated Glomerular Filtration Rate [...] GFR. Performed By: #### 2 777-1, , ####[facility] LABORATORYCLIA [id number] [place] [address] [place] Glucose [Mass/Vol] 98 mg/dL Normal 74-99 [facility] Comment on above: Order Comment: Specimen Type: BLOOD SPEC IMENOrdering Facility: [facility] Address: [address] [place] [address] Result Comment: The [place] [employer] (ADA) provides guidance for cutoff [...] Standards of Medical Care in Diabetes 2016, [place] [employer]. Diabetes Care. 2016.39(Suppl 1). Performed By: #### 2 777-1, , ####[facility] LABORATORYCLIA [id number] [place] [address] [place] Potassium [Moles/Vol] 3.5 mmol/L Low 3.7-5.1 [facility] Comment on above: Order Comment: Specimen Type: BLOOD SPEC IMENOrdering Facility: [facility] Address: [address] [place] [address] Performed By: #### 2 777-1, , ####[facility] LABORATORYCLIA [id number] [place] [id number] [place] Sodium [Moles/Vol] 137 mmol/L Normal 136-144 [facility] Comment on above: Order Comment: Specimen Type: BLOOD SPEC IMENOrdering Facility: [facility] Address: [address] [place] [address] Performed By: #### 2 777-1, , ####[facility] LABORATORYCLIA [id number] [place] [id number] [place] Urea nitrogen [Mass/Vol] 3 mg/dL Low 7-21 [facility] Comment on above: Order Comment: Specimen Type: BLOOD SPEC IMENOrdering Facility: [facility] Address: [address] [place] [address] Performed By: #### 2 777-1, 17703-6, 33686-8 ####[facility] LABORATORYCLIA [id number] [place] [id number] [place] CBC W Auto Differential pane l (Bld)on 08-09-2023 Basophils (Bld) [#/Vol] 0.08 10*3/uL Normal <0.11 [facility] Comment on above: Order Comment: Specimen Type: BLOOD SPEC IMENOrdering Facility: [facility] Address: [address] [place] [address] Performed By: #### 5 7021-8 ####GE[facility] LABORATORYCLIA [id number] [place] [address] [place] Basophils/100 WBC (Bld) 0.6 % Normal [facility] Comment on above: Order Comment: Specimen Type: BLOOD SPEC IMENOrdering Facility: [facility] Address: [address] [place] [address] Performed By: #### 5 7021-8 ####GEOR[facility] LABORATORYCLIA [id number] [place] [address] [place] Differential cell count method Nom (Bld) Auto Normal [facility] Comment on above: Order Comment: Specimen Type: BLOOD SPEC IMENOrdering Facility: [facility] Address: [address] [place] [address] Performed By: #### 5 7021-8 ####GEORGE LABORATORYCLIA [id number] [place] [id number] [place] Eosinophils (Bld) [#/Vol] 0.78 10*3/uL High <0.46 [facility] Comment on above: Order Comment: Specimen Type: BLOOD SPEC IMENOrdering Facility: [facility] Address: [address] [place] [address] Performed By: #### 5 7021-8 ####GEORGE LABORATORYCLIA [id number] [place] [id number] [place] Eosinophils/100 WBC (Bld) 5.4 % Normal [facility] Comment on above: Order Comment: Specimen Type: BLOOD SPEC IMENOrdering Facility: [facility] Address: [facility] [place] [address] Performed By: #### 5 7021-8 ####GEORGE LABORATORYCLIA [id number] [place] [address] [place] Erythrocyte distribution width (RBC) [Ratio] 14.6 % Normal 11.5-15.0 [facility] Comment on above: Order Comment: Specimen Type: BLOOD SPEC IMENOrdering Facility: [facility] Address: [address] [place] [address] Performed By: #### 5 7021-8 ####GEORGE LABORATORYCLIA [id number] [place] [address] [place] Hematocrit (Bld) [Volume fraction] 37.6 % Normal 36.0-46.0 [facility] Comment on above: Order Comment: Specimen Type: BLOOD SPEC IMENOrdering Facility: [facility] Address: [address] [place] [address] Performed By: #### 5 7021-8 ####[facility] LABORATORYCLIA [id number] [place] [address] [place] Hemoglobin (Bld) [Mass/Vol] 11.9 g/dL Normal 11.5-15.5 [facility] Comment on above: Order Comment: Specimen Type: BLOOD SPEC IMENOrdering Facility: [facility] Address: [address] [place] [address] Performed By: #### 5 7021-8 ####GEORGE LABORATORYCLIA [id number] [place] [id number] [place] Immature granulocytes (Bld) [#/Vol] 0.08 10*3/uL Normal <0.10 [facility] Comment on above: Order Comment: Specimen Type: BLOOD SPEC IMENOrdering Facility: [facility] Address: [address] [place] [address] Performed By: #### 5 7021-8 ####GEOR[facility] LABORATORYCLIA [id number] [place] [address] [place] Immature granulocytes/100 WBC (Bld) 0.6 % Normal [facility] Comment on above: Order Comment: Specimen Type: BLOOD SPEC IMENOrdering Facility: [facility] Address: [address] [place] [address] Performed By: #### 5 7021-8 ####GEORGE LABORATORYCLIA [id number] [place] [address] [place] Lymphocytes (Bld) [#/Vol] 3.71 10*3/uL Normal 1.00-4.00 [facility] Comment on above: Order Comment: Specimen Type: BLOOD SPEC IMENOrdering Facility: [facility] Address: [address] [place] [address] Performed By: #### 5 7021-8 ####GEORGE LABORATORYCLIA [id number] [address] [place] Lymphocytes/100 WBC (Bld) 25.7 % Normal [facility] Comment on above: Order Comment: Specimen Type: BLOOD SPEC IMENOrdering Facility: [facility] Address: [address] [place] [address] Performed By: #### 5 7021-8 ####GEORGE LABORATORYCLIA [id number] [place] [address] [place] MCH (RBC) [Entitic mass] 29.5 pg Normal 26.0-34.0 [facility] Comment on above: Order Comment: Specimen Type: BLOOD SPEC IMENOrdering Facility: [facility] Address: [address] [place] [address] Performed By: #### 5 7021-8 ####GEOR[facility] LABORATORYCLIA [id number] [place] [address] [place] MCHC (RBC) [Mass/Vol] 31.6 g/dL Normal 30.5-36.0 [facility] Comment on above: Order Comment: Specimen Type: BLOOD SPEC IMENOrdering Facility: [facility] Address: [address] [place] [address] Performed By: #### 5 7021-8 ####GEORGE LABORATORYCLIA [id number] [place] [id number] [place] MCV (RBC) [Entitic vol] 93.1 fL Normal 80.0-100.0 [facility] Comment on above: Order Comment: Specimen Type: BLOOD SPEC IMENOrdering Facility: [facility] Address: [address] [place] [address] Performed By: #### 5 7021-8 ####[facility] LABORATORYCLIA [id number] [place] [address] [place] Monocytes (Bld) [#/Vol] 1.36 10*3/uL High <0.87 [facility] Comment on above: Order Comment: Specimen Type: BLOOD SPEC IMENOrdering Facility: [facility] Address: [address] [place] [address] Performed By: #### 5 7021-8 ####[facility] LABORATORYCLIA [id number] [place] [id number] [place] Monocytes/100 WBC (Bld) 9.4 % Normal [facility] Comment on above: Order Comment: Specimen Type: BLOOD SPEC IMENOrdering Facility: [facility] Address: [address] [place] [address] Performed By: #### 5 7021-8 ####[facility] LABORATORYCLIA [id number] [place] [address] [place] Neutrophils (Bld) [#/Vol] 8.44 10*3/uL High 1.45-7.50 [facility] Comment on above: Order Comment: Specimen Type: BLOOD SPEC IMENOrdering Facility: [facility] Address: [address] [place] [address] Performed By: #### 5 7021-8 ####[facility] LABORATORYCLIA [id number] [place] [id number] [place] Neutrophils/100 WBC (Bld) 58.3 % Normal [facility] Comment on above: Order Comment: Specimen Type: BLOOD SPEC IMENOrdering Facility: [facility] Address: [address] [place] [address] Performed By: #### 5 7021-8 ####[facility] LABORATORYCLIA [id number] [place] [id number] [place] Nucleated RBC (Bld) [#/Vol] 0.03 10*3/uL High <0.01 [facility] Comment on above: Order Comment: Specimen Type: BLOOD SPEC IMENOrdering Facility: [facility] Address: [address] [place] [address] Performed By: #### 5 7021-8 ####[facility] LABORATORYCLIA [id number] [place] [id number] [place] Nucleated RBC/100 WBC (Bld) [Ratio] 0.2 /100 WBC Normal [facility] Comment on above: Order Comment: Specimen Type: BLOOD SPEC IMENOrdering Facility: [facility] Address: [address] [place] [address] Performed By: #### 5 7021-8 ####[facility] LABORATORYCLIA [id number] [place] [id number] [place] Platelet mean volume (Bld) [Entitic vol] 9.5 fL Normal 9.0-12.7 [facility] Comment on above: Order Comment: Specimen Type: BLOOD SPEC IMENOrdering Facility: [facility] Address: [address] [place] [address] Performed By: #### 5 7021-8 ####[facility] LABORATORYCLIA [id number] [place] [id number] [place] Platelets (Bld) [#/Vol] 499 10*3/uL High 150-400 [facility] Comment on above: Order Comment: Specimen Type: BLOOD SPEC IMENOrdering Facility: [facility] Address: [address] [place] [address] Performed By: #### 5 7021-8 ####[facility] LABORATORYCLIA [id number] [place] [id number] [place] RBC (Bld) [#/Vol] 4.04 10*6/uL Normal 3.90-5.20 [facility] Comment on above: Order Comment: Specimen Type: BLOOD SPEC IMENOrdering Facility: [facility] Address: [address] [id number] Performed By: #### 5 7021-8 ####[facility] LABORATORYCLIA [id number] [place] [id number] [facility] WBC (Bld) [#/Vol] 14.45 10*3/uL High 3.70-11.00 [facility] Comment on above: Order Comment: Specimen Type: BLOOD SPEC IMENOrdering Facility: [facility] Address: [address] [id number] Performed By: #### 5 7021-8 ####[facility] LABORATORYCLIA [id number] [place] [id number] [facility] CONSULT PROGon 08-09-2023 CONSULT PROG HNO ID: [id number] Author: BUCKY FLORES APRN.ENTRY LEVEL Service: Pain Management Author Type: Nurse Practitioner [...] Please call with questions. SIGNATURE: Bucky Flores APRN.ENTRY LEVEL PAGER:[phone] DATE of SERVICE: August 09, 2023 TIME of SERVICE: 2:20 PM Normal [facility] Magnesium [facility]09 Magnesium [Mass/Vol] 1.8 mg/dL Normal 1.7-2.3 [facility] Comment on above: Order Comment: Specimen Type: BLOOD SPEC IMENOrdering Facility: [facility] Address: [address] [place] [address] Performed By: #### 2 777-1, , ####[facility] LABORATORYCLIA [id number] [address] [place] NURSING PROGon 08-09-2023 NURSING PROG HNO ID: [id number] Author: KIRA VANCE RN Service: ? Author [...] LIP. Pt is ambulating in hallway. Normal [facility] Phosphate [facility] 08-09 Phosphate [Mass/Vol] 3.2 mg/dL Normal 2.7-4.8 [facility] Comment on above: Order Comment: Specimen Type: BLOOD SPEC IMENOrdering Facility: [facility] Address: [address] [id number] Performed By: #### 2 777-1, , ####[facility] LABORATORYCLIA [id number] [place] [id number] [place] Basic metabolic 2000 panelon 08-08-2023 Anion gap [Moles/Vol] 12 mmol/L Normal 9-18 [facility] Comment on above: Order Comment: Specimen Type: BLOOD SPEC IMENOrdering Facility: [facility] Address: [address] [id number] Performed By: #### 2 777-1, , ####[facility] LABORATORYCLIA [id number] [place] [address] [place] Calcium [Mass/Vol] 8.6 mg/dL Normal 8.5-10.2 [facility] Comment on above: Order Comment: Specimen Type: BLOOD SPEC IMENOrdering Facility: [facility] Address: [address] [place] [address] Performed By: #### 2 777-1, , ####[facility] LABORATORYCLIA [id number] [place] [id number] [place] Chloride [Moles/Vol] 105 mmol/L Normal 97-105 [facility] Comment on above: Order Comment: Specimen Type: BLOOD SPEC IMENOrdering Facility: [facility] Address: [address] [place] [address] Performed By: #### 2 777-1, , ####[facility] LABORATORYCLIA [id number] [place] [id number] [place] CO2 [Moles/Vol] 21 mmol/L Low 22-30 [facility] Comment on above: Order Comment: Specimen Type: BLOOD SPEC IMENOrdering Facility: [facility] Address: [address] [place] [address] Performed By: #### 2 777-1, , ####[facility] LABORATORYCLIA [id number] [place] [id number] [place] Creatinine [Mass/Vol] 0.58 mg/dL Normal 0.58-0.96 [facility] Comment on above: Order Comment: Specimen Type: BLOOD SPEC IMENOrdering Facility: [facility] Address: [address] [place] [address] Performed By: #### 2 777-1, , ####[facility] LABORATORYCLIA [id number] [place] [id number] [place] Creatinine and Glomerular filtration rate.predicted panel (S/P/Bld) 119 mL/min/1.73m??? Normal >=60 [facility] Comment on above: Order Comment: Specimen Type: BLOOD SPEC IMENOrdering Facility: [facility] Address: [address] [place] [address] Result Comment: Janet mated Glomerular Filtration Rate [...] actual GFR. Performed By: #### 2 777-1, 95029-9, 45864-3 ####[facility] LABORATORYCLIA [id number] [place] [id number] [place] Glucose [Mass/Vol] 97 mg/dL Normal 74-99 [facility] Comment on above: Order Comment: Specimen Type: BLOOD SPEC IMENOrdering Facility: [facility] Address: [address] [place] [address] Result Comment: The [place] Diabetes Association (ADA) provides guidance for cutoff [...] Standards of Medical Care in Diabetes 2016, [place] [employer]. Diabetes Care. 2016.39(Suppl 1). Performed By: #### 2 777-1, 91833-8, 67398-6 ####[facility] LABORATORYCLIA [id number] [place] [id number] [place] Potassium [Moles/Vol] 3.9 mmol/L Normal 3.7-5.1 [facility] Comment on above: Order Comment: Specimen Type: BLOOD SPEC IMENOrdering Facility: [facility] Address: [address] [place] [address] Performed By: #### 2 777-1, , ####[facility] LABORATORYCLIA [id number] [place] [id number] [place] Sodium [Moles/Vol] 138 mmol/L Normal 136-144 [facility] Comment on above: Order Comment: Specimen Type: BLOOD SPEC IMENOrdering Facility: [facility] Address: [address] [place] [address] Performed By: #### 2 777-1, , ####[facility] LABORATORYCLIA [id number] [place] [address] [place] Urea nitrogen [Mass/Vol] 3 mg/dL Low 7-21 [facility] Comment on above: Order Comment: Specimen Type: BLOOD SPEC IMENOrdering Facility: [facility] Address: [address] [place] [address] Performed By: #### 2 777-1, , ####[facility] LABORATORYCLIA [id number] [place] [address] [place] CBC W Auto Differential pane l (Bld)on 08-08-2023 Basophils (Bld) [#/Vol] 0.08 10*3/uL Normal <0.11 [facility] Comment on above: Order Comment: Specimen Type: BLOOD SPEC IMENOrdering Facility: [facility] Address: [address] [place] [address] Performed By: #### 5 7021-8 ####[facility] LABORATORYCLIA [id number] [place] [address] [place] Basophils/100 WBC (Bld) 0.5 % Normal [facility] Comment on above: Order Comment: Specimen Type: BLOOD SPEC IMENOrdering Facility: [facility] Address: [address] [place] [address] Performed By: #### 5 7021-8 ####[facility] LABORATORYCLIA [id number] [place] [id number] [place] Differential cell count method Nom (Bld) Auto Normal [facility] Comment on above: Order Comment: Specimen Type: BLOOD SPEC IMENOrdering Facility: [facility] Address: [facility] [place] [address] Performed By: #### 5 7021-8 ####[facility] LABORATORYCLIA [id number] [place] [address] [place] Eosinophils (Bld) [#/Vol] 0.70 10*3/uL High <0.46 [facility] Comment on above: Order Comment: Specimen Type: BLOOD SPEC IMENOrdering Facility: [facility] Address: [address] [place] [address] Performed By: #### 5 7021-8 ####[facility] LABORATORYCLIA [id number] [place] [address] [place] Eosinophils/100 WBC (Bld) 4.7 % Normal [facility] Comment on above: Order Comment: Specimen Type: BLOOD SPEC IMENOrdering Facility: [facility] Address: [address] [place] [address] Performed By: #### 5 7021-8 ####[facility] LABORATORYCLIA [id number] [address] [place] Erythrocyte distribution width (RBC) [Ratio] 14.2 % Normal 11.5-15.0 [facility] Comment on above: Order Comment: Specimen Type: BLOOD SPEC IMENOrdering Facility: [facility] Address: [address] [place] [address] Performed By: #### 5 7021-8 ####[facility] LABORATORYCLIA [id number] [address] [place] Hematocrit (Bld) [Volume fraction] 35.7 % Low 36.0-46.0 [facility] Comment on above: Order Comment: Specimen Type: BLOOD SPEC IMENOrdering Facility: [facility] Address: [address] [place], [place] [address] Performed By: #### 5 7021-8 ####[facility] LABORATORYCLIA [id number] [place] [id number] [place] Hemoglobin (Bld) [Mass/Vol] 11.4 g/dL Low 11.5-15.5 [facility] Comment on above: Order Comment: Specimen Type: BLOOD SPEC IMENOrdering Facility: [facility] Address: [address] [place] [address] Performed By: #### 5 7021-8 ####[facility] LABORATORYCLIA [id number] [place] [address] [place] Immature granulocytes (Bld) [#/Vol] 0.06 10*3/uL Normal <0.10 [facility] Comment on above: Order Comment: Specimen Type: BLOOD SPEC IMENOrdering Facility: [facility] Address: [address] [place] [address] Performed By: #### 5 7021-8 ####[facility] LABORATORYCLIA [id number] [place] [address] [place] Immature granulocytes/100 WBC (Bld) 0.4 % Normal [facility] Comment on above: Order Comment: Specimen Type: BLOOD SPEC IMENOrdering Facility: [facility] Address: [address] [place] [address] Performed By: #### 5 7021-8 ####[facility] LABORATORYCLIA [id number] [place] [id number] [place] Lymphocytes (Bld) [#/Vol] 3.44 10*3/uL Normal 1.00-4.00 [facility] Comment on above: Order Comment: Specimen Type: BLOOD SPEC IMENOrdering Facility: [facility] Address: [address] [place] [address] Performed By: #### 5 7021-8 ####[facility] LABORATORYCLIA [id number] [place] [id number] [place] Lymphocytes/100 WBC (Bld) 22.9 % Normal [facility] Comment on above: Order Comment: Specimen Type: BLOOD SPEC IMENOrdering Facility: [facility] Address: [address] [place] [address] Performed By: #### 5 7021-8 ####[facility] LABORATORYCLIA [id number] [address] MCH (RBC) [Entitic mass] 29.6 pg Normal 26.0-34.0 [facility] Comment on above: Order Comment: Specimen Type: BLOOD SPEC IMENOrdering Facility: [facility] Address: [address] [place] [address] Performed By: #### 5 7021-8 ####[facility] LABORATORYCLIA [id number] [address] [place] MCHC (RBC) [Mass/Vol] 31.9 g/dL Normal 30.5-36.0 [facility] Comment on above: Order Comment: Specimen Type: BLOOD SPEC IMENOrdering Facility: [facility] Address: [address] [place] [address] Performed By: #### 5 7021-8 ####[facility] LABORATORYCLIA [id number] [address] [place] MCV (RBC) [Entitic vol] 92.7 fL Normal 80.0-100.0 [facility] Comment on above: Order Comment: Specimen Type: BLOOD SPEC IMENOrdering Facility: [facility] Address: [address] [place] [address] Performed By: #### 5 7021-8 ####[facility] LABORATORYCLIA [id number] [address] [place] Monocytes (Bld) [#/Vol] 1.42 10*3/uL High <0.87 [facility] Comment on above: Order Comment: Specimen Type: BLOOD SPEC IMENOrdering Facility: [facility] Address: [address] [place] [address] Performed By: #### 5 7021-8 ####[facility] LABORATORYCLIA [id number] [address] [place] Monocytes/100 WBC (Bld) 9.4 % Normal [facility] Comment on above: Order Comment: Specimen Type: BLOOD SPEC IMENOrdering Facility: [facility] Address: [address] [place] [address] Performed By: #### 5 7021-8 ####[facility] LABORATORYCLIA [id number] [place] [id number] [place] Neutrophils (Bld) [#/Vol] 9.33 10*3/uL High 1.45-7.50 [facility] Comment on above: Order Comment: Specimen Type: BLOOD SPEC IMENOrdering Facility: [facility] Address: [address] [place] [address] Performed By: #### 5 7021-8 ####[facility] LABORATORYCLIA [id number] [place] [id number] [place] Neutrophils/100 WBC (Bld) 62.1 % Normal [facility] Comment on above: Order Comment: Specimen Type: BLOOD SPEC IMENOrdering Facility: [facility] Address: [address] [place] [address] Performed By: #### 5 7021-8 ####[facility] LABORATORYCLIA [id number] [place] [id number] [place] Nucleated RBC (Bld) [#/Vol] 10*3/uL Normal <0.01 [facility] Comment on above: Order Comment: Specimen Type: BLOOD SPEC IMENOrdering Facility: [facility] Address: [address] [place] [address] Performed By: #### 5 7021-8 ####[facility] LABORATORYCLIA [id number] [place] [id number] [place] Nucleated RBC/100 WBC (Bld) [Ratio] 0.0 /100 WBC Normal [facility] Comment on above: Order Comment: Specimen Type: BLOOD SPEC IMENOrdering Facility: [facility] Address: [address] [place] [address] Performed By: #### 5 7021-8 ####[facility] LABORATORYCLIA [id number] [place] [id number] [place] Platelet mean volume (Bld) [Entitic vol] 9.8 fL Normal 9.0-12.7 [facility] Comment on above: Order Comment: Specimen Type: BLOOD SPEC IMENOrdering Facility: [facility] Address: [address] [place] [address] Performed By: #### 5 7021-8 ####[facility] LABORATORYCLIA [id number] [place] [id number] [place] Platelets (Bld) [#/Vol] 457 10*3/uL High 150-400 [facility] Comment on above: Order Comment: Specimen Type: BLOOD SPEC IMENOrdering Facility: [facility] Address: [address] [place] [address] Performed By: #### 5 7021-8 ####[facility] LABORATORYCLIA [id number] [place] [address] [place] RBC (Bld) [#/Vol] 3.85 10*6/uL Low 3.90-5.20 [facility] Comment on above: Order Comment: Specimen Type: BLOOD SPEC IMENOrdering Facility: [facility] Address: [address] [place] [address] Performed By: #### 5 7021-8 ####[facility] LABORATORYCLIA [id number] [place] [id number] [place] WBC (Bld) [#/Vol] 15.03 10*3/uL High 3.70-11.00 [facility] Comment on above: Order Comment: Specimen Type: BLOOD SPEC IMENOrdering Facility: [facility] Address: [address] [place] [address] Performed By: #### 5 7021-8 ####[facility] LABORATORYCLIA [id number] [place] [id number] [facility] [place] CONSULT PROGon 08-08-2023 CONSULT PROG HNO ID: [id number] Author: AUGUSTUS HERRERA PA-C Service: Pain Management Author Type: Physician Academic Director Type: Consult Progress Note Filed: 08/08/2023 10:26 [...] PLAN/Recs: Continue Bupi 0.0625%/Fent epidural analgesia at 01/30/11/10 to promote comfort, mobility, and pulmonary toilet [...] PERTINENT ROS: ALLERGIES ALLERGIES Allergen Reactions Adhes. Ftoo-Thzh-Wr* Rash Adhesive Tape-Silic* Rash Augmentin [Amoxicil* Diarrhea [...] Day of surgery MEDICATIONS: Epidural Medications and MEDICATION ASSISTANT Settings Bupivacaine 0.0625% + Fentanyl 2 mcg/mL Basal rate: 8 mL/hr. Patient Demand Bolus: 4 mL. Lockout interval: 15 minutes. Patient received 6/16 doses in the last 4 hours. Additional medication(s) given: See below Anticoagulation therapy: Heparin 5000 units TID Last Dose given: 08/08 536 Allergy: ALLERGIES Allergen Reactions Adhes. Topi-Mmwh-Oz* Rash Adhesive Tape-Silic* Rash Augmentin [Amoxicil* Diarrhea [...] (CYMBALTA) 60 mg ORAL DAILY phenol 1 Ethel (CHLORASEPTIC) 1 Ethel MUCOUS MEMBRANE (TOPICAL MOUTH AND THROAT) q 2 H PRN cetirizine 10 mg tab(s) (ZYRTEC) 10 mg ORAL DAILY acetaminophen 1,000 mg tab(s) (TYLENOL) 1,000 mg ORAL q 6 H fentaNYL 50 mcg/mL 25 mcg injection (SUBLI (more content not included)... Normal [facility] Magnesium [facility] Magnesium [Mass/Vol] 1.8 mg/dL Normal 1.7-2.3 [facility] Comment on above: Order Comment: Specimen Type: BLOOD SPEC IMENOrdering Facility: [facility] Address: [address] [place] [id number] Performed By: #### 2 777-1, , 57097-9 ####[facility] LABORATORYCLIA [id number] [address] [place] NURSING PROGon 08-08-2023 NURSING PROG HNO ID: [id number] Author: KIRA VANCE, RN Service: ? Author Type: Registered Nurse Type: Nursing Progress Note Filed: 08/08/2023 09:15 Note Text: Nursing Progress Note: Pt AANDO x 3. Abdomen is soft and tender. Upper transverse incision open to air with glue. Epidural infusing per MAR. Lungs diminished on RA. SR on tele. Pt up with 1 assist. Pt tolerating phase II bariatric diet. Normal [facility] Phosphate [facility]08 Phosphate [Mass/Vol] 3.2 mg/dL Normal 2.7-4.8 [facility] Comment on above: Order Comment: Specimen Type: BLOOD SPEC IMENOrdering Facility: [facility] Address: [address] [place] [address] Performed By: #### 2 777-1, , ####[facility] LABORATORYCLIA [id number] [place] [id number] [facility] Urinalysis complete panel (U )on 08-08-2023 Bacteria LM.HPF (Urine sed) [#/Area] Rare Abnormal None Seen [facility] Comment on above: Order Comment: Specimen Type: URINE SPEC IMENOrdering Facility: [facility] Address: [address] [place] [address] Performed By: #### 2 4356-8 ####[facility] LABORATORYCLIA [id number] [address] LABCLIA [id number] [place] [address] [place] Bilirubin Ql (U) Negative Normal Negative [facility] Comment on above: Order Comment: Specimen Type: URINE SPEC IMENOrdering Facility: [facility] Address: [address] [place] [address] Performed By: #### 2 4356-8 ####[facility] LABORATORYCLIA [id number] [address] LABCLIA [id number] [place] [address] [place] Clarity (Unsp spec) Turbid Abnormal Clear [facility] Comment on above: Order Comment: Specimen Type: URINE SPEC IMENOrdering Facility: [facility] Address: [address] [place] [address] Performed By: #### 2 4356-8 ####[facility] LABORATORYCLIA [id number] [address] LABCLIA [id number] [place] [address] [place] Color (U) Light Dawes Abnormal Yellow [facility] Comment on above: Order Comment: Specimen Type: URINE SPEC IMENOrdering Facility: [facility] Address: [address] [place] [address] Performed By: #### 2 4356-8 ####[facility] LABORATORYCLIA [id number] [place] [id number] [facility] LABCLIA [id number] [facility] [place] [address] [place] Epithelial cells LM.HPF (Urine sed) [#/Area] Moderate Normal [facility] Comment on above: Order Comment: Specimen Type: URINE SPEC IMENOrdering Facility: [facility] Address: [address] [place] [address] Performed By: #### 2 4356-8 ####[facility] LABORATORYCLIA [id number] [address] LABCLIA [id number] [address] [place] Glucose Test strip (U) [Mass/Vol] Negative Normal Trace, Negative [facility] Comment on above: Order Comment: Specimen Type: URINE SPEC IMENOrdering Facility: [facility] Address: [address] [place] [address] Performed By: #### 2 4356-8 ####[facility] LABORATORYCLIA [id number] [address] LABCLIA [id number] [place] [address] [place] Hemoglobin Ql (U) 3+ Abnormal Negative, Trace [facility] Comment on above: Order Comment: Specimen Type: URINE SPEC IMENOrdering Facility: [facility] Address: [address] [place] [address] Performed By: #### 2 4356-8 ####[facility] LABORATORYCLIA [id number] [address] LABCLIA [id number] [address] [place] Ketones Ql (U) 2+ Abnormal Negative, Trace [facility] Comment on above: Order Comment: Specimen Type: URINE SPEC IMENOrdering Facility: [facility] Address: [address] [place] [address] Performed By: #### 2 4356-8 ####[facility] LABORATORYCLIA [id number] [address] LABCLIA [id number] [address] Leukocyte esterase Test strip Ql (U) 250 Ko/uL Abnormal Negative, 25 Ko/uL [facility] Comment on above: Order Comment: Specimen Type: URINE SPEC IMENOrdering Facility: [facility] Address: [address] [place] [address] Performed By: #### 2 4356-8 ####[facility] LABORATORYCLIA [id number] [address] LABCLIA [id number] [address] [place] Nitrite Ql (U) Negative Normal Negative [facility] Comment on above: Order Comment: Specimen Type: URINE SPEC IMENOrdering Facility: [facility] Address: [address] [place] [address] Performed By: #### 2 4356-8 ####[facility] LABORATORYCLIA [id number] [address] LABCLIA [id number] [address] [place] pH (U) 6.0 [pH] Normal 5.0-8.0 [facility] Comment on above: Order Comment: Specimen Type: URINE SPEC IMENOrdering Facility: [facility] Address: [address] [place] [address] Performed By: #### 2 4356-8 ####[facility] LABORATORYCLIA [id number] [address] LABCLIA [id number] [place] [address] [place] Protein (U) [Mass/Vol] 1+ Abnormal Trace, Negative [facility] Comment on above: Order Comment: Specimen Type: URINE SPEC IMENOrdering Facility: [facility] Address: [address] [place] [address] Performed By: #### 2 4356-8 ####[facility] LABORATORYCLIA [id number] [address] LABCLIA [id number] [place] [address] [place] RBC LM.HPF (Urine sed) [#/Area] /[HPF] Abnormal 0-3 /HPF [facility] Comment on above: Order Comment: Specimen Type: URINE SPEC IMENOrdering Facility: [facility] Address: [address] [place] [address] Performed By: #### 2 4356-8 ####[facility] LABORATORYCLIA [id number] [address] LABCLIA [id number] [place] [address] [place] Specific gravity (U) [Rel density] 1.011 Normal 1.005-1.03 0 [facility] Comment on above: Order Comment: Specimen Type: URINE SPEC IMENOrdering Facility: [facility] Address: [address] [place] [address] Performed By: #### 2 4356-8 ####[facility]ORATORYCLIA [id number] [address] LABCLIA [id number] [address] OF [place] Urobilinogen Ql (U) Normal Normal Normal [facility] Comment on above: Order Comment: Specimen Type: URINE SPEC IMENOrdering Facility: [facility] Address: [address] [place], [place] [address] Performed By: #### 2 4356-8 ####[facility] LABORATORYCLIA [id number] [address] LABCLIA [id number] [place] [address] [place] WBC LM.HPF (Urine sed) [#/Area] /[HPF] Abnormal 0-5 /HPF [facility] Comment on above: Order Comment: Specimen Type: URINE SPEC IMENOrdering Facility: [facility] Address: [address] [place] [address] Performed By: #### 2 4356-8 ####[facility] LABORATORYCLIA [id number] [address] LABCLIA [id number] [address] [place] Urinalysis complete pnl Uron 08-08-2023 Urinalysis complete panel (U) COLOR: Light Dawes CLARITY: Turbid GLUCOSE, URINE: Negative BILIRUBIN, URINE: Negative KETONES, URINE: 2+ SPECIFIC GRAVITY, UR: 1.011 HEMOGLOBIN/BLOOD, UR: 3+ PH, URINE: 6.0 PROTEIN, URINE: 1+ UROBILINOGEN: Normal NITRITES: Negative LEUKEST: 250 Ko/uL WBC, URINE: >25 /HPF RBC, URINE: >25 /HPF BACTERIA: Rare SQUAMOUS EPITHELIAL CELLS: Moderate ORGANISM ID: 1 50,000-<100,000 CFU/ml Mixed microbiota No further workup Normal [facility] Comment on above: Order Comment: Specimen Type: URINE SPEC IMENOrdering Facility: [facility] Address: [address] [place] [address] Performed By: #### 2 4356-8 ####[facility]ORGE LABORATORYCLIA [id number] [place] [id number] [facility] LABCLIA [id number] [place] [address] [place] Basic metabolic 2000 panelon 08-07-2023 Anion gap [Moles/Vol] 12 mmol/L Normal 9-18 [facility] Comment on above: Order Comment: Specimen Type: BLOOD SPEC IMENOrdering Facility: [facility] Address: [address] [place] [address] Performed By: #### 1 9123-9, 42501-7, 2777-1 ####GEORGE LABORATORYCLIA [id number] [place] [address] [place] Calcium [Mass/Vol] 8.4 mg/dL Low 8.5-10.2 [facility] Comment on above: Order Comment: Specimen Type: BLOOD SPEC IMENOrdering Facility: [facility] Address: [address] [place] [address] Performed By: #### 1 9123-9, 91088-3, 2776- ####[facility] LABORATORYCLIA [id number] [place] [id number] [place] Chloride [Moles/Vol] 105 mmol/L Normal 97-105 [facility] Comment on above: Order Comment: Specimen Type: BLOOD SPEC IMENOrdering Facility: [facility] Address: [address] [place] [address] Performed By: #### 1 9123-9, 02144-1, 2776- ####[facility] LABORATORYCLIA [id number] [place] [id number] [place] CO2 [Moles/Vol] 22 mmol/L Normal 22-30 [facility] Comment on above: Order Comment: Specimen Type: BLOOD SPEC IMENOrdering Facility: [facility] Address: [address] [place] [address] Performed By: #### 1 9123-9, 71013-8, 2776-06 ####[facility] LABORATORYCLIA [id number] [place] [id number] [place] Creatinine [Mass/Vol] 0.61 mg/dL Normal 0.58-0.96 [facility] Comment on above: Order Comment: Specimen Type: BLOOD SPEC IMENOrdering Facility: [facility] Address: [address] [place] [address] Performed By: #### 1 9123-9, 10612-6, 2776-06 ####[facility] LABORATORYCLIA [id number] [place] [id number] [facility] [place] Creatinine and Glomerular filtration rate.predicted panel (S/P/Bld) 118 mL/min/1.73m??? Normal >=60 [facility] Comment on above: Order Comment: Specimen Type: BLOOD SPEC IMENOrdering Facility: [facility] Address: [address] [place] [address] Result Comment: Janet mated Glomerular Filtration Rate [...] actual GFR. Performed By: #### 1 9123-9, 61855-2, 2776-06 ####[facility] LABORATORYCLIA [id number] [place] [id number] [place] Glucose [Mass/Vol] 99 mg/dL Normal 74-99 [facility] Comment on above: Order Comment: Specimen Type: BLOOD SPEC IMENOrdering Facility: [facility] Address: [address] [place] [address] Result Comment: The [place] Diabetes Association (ADA) provides guidance for cutoff [...] Standards of Medical Care in Diabetes 2016, [place] [employer]. Diabetes Care. 2016.39(Suppl 1). Performed By: #### 1 9123-9, 86551-7, 2776-06 ####[facility] LABORATORYCLIA [id number] [place] [id number] [place] Potassium [Moles/Vol] 3.7 mmol/L Normal 3.7-5.1 [facility] Comment on above: Order Comment: Specimen Type: BLOOD SPEC IMENOrdering Facility: [facility] Address: [address] [place] [id number] Performed By: #### 1 9123-9, 83500-3, 2776-06 ####[facility] LABORATORYCLIA [id number] [place] [id number] [place] Sodium [Moles/Vol] 139 mmol/L Normal 136-144 [facility] Comment on above: Order Comment: Specimen Type: BLOOD SPEC IMENOrdering Facility: [facility] Address: [address] [place] [address] Performed By: #### 1 9123-9, 32333-2, 2777- ####[facility] LABORATORYCLIA [id number] [place] [id number] [facility] Urea nitrogen [Mass/Vol] 3 mg/dL Low 7-21 [facility] Comment on above: Order Comment: Specimen Type: BLOOD SPEC IMENOrdering Facility: [facility] Address: [address] [place] [address] Performed By: #### 1 9123-9, 28987-1, 27712-27 ####[facility] LABORATORYCLIA [id number] [place] [id number] [facility] CASE MANAGEMon 08-07-2023 CASE MANAGEM HNO ID: [id number] Author: ARTUR DIAMOND RN Service: ? Author Type: Registered Nurse Type: Care Mgt Progress Note Filed: 08/07/2023 09:33 Note Text: CARE MANAGEMENT WEEKEND PLANNING NOTE POSSIBLE DISCHARGE Date/Time: TBD Disposition: home w/ family support Transport: Car per pt arrangement Other Concerns: S/p Biliopancreatic diversion w/ duodenal switch. Await return of bowel function. On Phase 1 diet. Anticipate no skilled needs at [place]. Weekend Hot Room Attendant Pager #: Peyman Pizano [phone] SIGNATURE: Artur Diamond RN PATIENT NAME: Susi Jeanenship DATE: August 07, 2023 TIME: 9:29 AM PAGER/CONTACT #: [phone] Normal [facility] CBC W Auto Differential pane l (Bld)on 08-07-2023 Basophils (Bld) [#/Vol] 0.49 10*3/uL High <0.11 [facility] Comment on above: Order Comment: Specimen Type: BLOOD SPEC IMENOrdering Facility: [facility] Address: [address] [place] [address] Performed By: #### 5 7021-8 ####[facility] LABORATORYCLIA [id number] [place] [address] [place] Basophils/100 WBC (Bld) 3.0 % Normal [facility] Comment on above: Order Comment: Specimen Type: BLOOD SPEC IMENOrdering Facility: [facility] Address: [address] [place] [address] Performed By: #### 5 7021-8 ####[facility] LABORATORYCLIA [id number] [place] [address] [place] Differential cell count method Nom (Bld) Manual Normal [facility] Comment on above: Order Comment: Specimen Type: BLOOD SPEC IMENOrdering Facility: [facility] Address: [address] [place] [address] Performed By: #### 5 7021-8 ####[facility]OR[facility] LABORATORYCLIA [id number] [place] [address] [place] Eosinophils (Bld) [#/Vol] 0.00 10*3/uL Normal <0.46 [facility] Comment on above: Order Comment: Specimen Type: BLOOD SPEC IMENOrdering Facility: [facility] Address: [address] [place] [address] Performed By: #### 5 7021-8 ####[facility] LABORATORYCLIA [id number] [address] [place] Eosinophils/100 WBC (Bld) 0.0 % Normal [facility] Comment on above: Order Comment: Specimen Type: BLOOD SPEC IMENOrdering Facility: [facility] Address: [address] [place] [address] Performed By: #### 5 7021-8 ####[facility] LABORATORYCLIA [id number] [place] [address] [place] Erythrocyte distribution width (RBC) [Ratio] 14.2 % Normal 11.5-15.0 [facility] Comment on above: Order Comment: Specimen Type: BLOOD SPEC IMENOrdering Facility: [facility] Address: [address] [place] [address] Performed By: #### 5 7021-8 ####[facility] LABORATORYCLIA [id number] [address] [place] Hematocrit (Bld) [Volume fraction] 37.7 % Normal 36.0-46.0 [facility] Comment on above: Order Comment: Specimen Type: BLOOD SPEC IMENOrdering Facility: [facility] Address: [address] [place] [address] Performed By: #### 5 7021-8 ####[facility] LABORATORYCLIA [id number] [place] [id number] [place] Hemoglobin (Bld) [Mass/Vol] 11.8 g/dL Normal 11.5-15.5 [facility] Comment on above: Order Comment: Specimen Type: BLOOD SPEC IMENOrdering Facility: [facility] Address: [address] [place] [address] Performed By: #### 5 7021-8 ####[facility] LABORATORYCLIA [id number] [place] [address] [place] Lymphocytes (Bld) [#/Vol] 4.43 10*3/uL High 1.00-4.00 [facility] Comment on above: Order Comment: Specimen Type: BLOOD SPEC IMENOrdering Facility: [facility] Address: [address] [place] [address] Performed By: #### 5 7021-8 ####[facility]OR[facility] LABORATORYCLIA [id number] [address] [place] Lymphocytes/100 WBC (Bld) 27.0 % Normal [facility] Comment on above: Order Comment: Specimen Type: BLOOD SPEC IMENOrdering Facility: [facility] Address: [address] [place] [address] Performed By: #### 5 7021-8 ####[facility] LABORATORYCLIA [id number] [place] [id number] [place] MCH (RBC) [Entitic mass] 29.4 pg Normal 26.0-34.0 [facility] Comment on above: Order Comment: Specimen Type: BLOOD SPEC IMENOrdering Facility: [facility] Address: [address] [place] [address] Performed By: #### 5 7021-8 ####[facility] LABORATORYCLIA [id number] [place] [id number] [place] MCHC (RBC) [Mass/Vol] 31.3 g/dL Normal 30.5-36.0 [facility] Comment on above: Order Comment: Specimen Type: BLOOD SPEC IMENOrdering Facility: [facility] Address: [address] [place] [address] Performed By: #### 5 7021-8 ####[facility] LABORATORYCLIA [id number] [place] [id number] [place] MCV (RBC) [Entitic vol] 94.0 fL Normal 80.0-100.0 [facility] Comment on above: Order Comment: Specimen Type: BLOOD SPEC IMENOrdering Facility: [facility] Address: [address] [place] [address] Performed By: #### 5 7021-8 ####[facility] LABORATORYCLIA [id number] [place] [id number] [place] Monocytes (Bld) [#/Vol] 1.48 10*3/uL High <0.87 [facility] Comment on above: Order Comment: Specimen Type: BLOOD SPEC IMENOrdering Facility: [facility] Address: [address] [place] [address] Performed By: #### 5 7021-8 ####[facility] LABORATORYCLIA [id number] [place] [id number] [place] Monocytes/100 WBC (Bld) 9.0 % Normal [facility] Comment on above: Order Comment: Specimen Type: BLOOD SPEC IMENOrdering Facility: [facility] Address: [address] [place] [address] Performed By: #### 5 7021-8 ####[facility] LABORATORYCLIA [id number] [place] [id number] [place] Neutrophils (Bld) [#/Vol] 10.00 10*3/uL High 1.45-7.50 [facility] Comment on above: Order Comment: Specimen Type: BLOOD SPEC IMENOrdering Facility: [facility] Address: [address] [place] [address] Performed By: #### 5 7021-8 ####[facility] LABORATORYCLIA [id number] [place] [id number] [place] Neutrophils/100 WBC (Bld) 61.0 % Normal [facility] Comment on above: Order Comment: Specimen Type: BLOOD SPEC IMENOrdering Facility: [facility] Address: [facility] [place] [address] Performed By: #### 5 7021-8 ####[facility] LABORATORYCLIA [id number] [place] [id number] [place] Nucleated RBC (Bld) [#/Vol] 10*3/uL Normal <0.01 [facility] Comment on above: Order Comment: Specimen Type: BLOOD SPEC IMENOrdering Facility: [facility] Address: [address] [place] [address] Performed By: #### 5 7021-8 ####GEOR[facility] LABORATORYCLIA [id number] [place] [id number] [place] Nucleated RBC/100 WBC (Bld) [Ratio] 0.0 /100 WBC Normal [facility] Comment on above: Order Comment: Specimen Type: BLOOD SPEC IMENOrdering Facility: [facility] Address: [address] [place] [address] Performed By: #### 5 7021-8 ####GEOR[facility] LABORATORYCLIA [id number] [place] [id number] [place] Platelet mean volume (Bld) [Entitic vol] 9.3 fL Normal 9.0-12.7 [facility] Comment on above: Order Comment: Specimen Type: BLOOD SPEC IMENOrdering Facility: [facility] Address: [address] [place] [address] Performed By: #### 5 7021-8 ####[facility] LABORATORYCLIA [id number] [place] [id number] [place] Platelets (Bld) [#/Vol] 409 10*3/uL High 150-400 [facility] Comment on above: Order Comment: Specimen Type: BLOOD SPEC IMENOrdering Facility: [facility] Address: [address] [place] [address] Performed By: #### 5 7021-8 ####[facility] LABORATORYCLIA [id number] [place] [id number] [place] Platelets Estimate (Bld) [#/Vol] Increased Normal [facility] Comment on above: Order Comment: Specimen Type: BLOOD SPEC IMENOrdering Facility: [facility] Address: [address] [place] [address] Performed By: #### 5 7021-8 ####[facility] LABORATORYCLIA [id number] [place] [id number] [place] RBC (Bld) [#/Vol] 4.01 10*6/uL Normal 3.90-5.20 [facility] Comment on above: Order Comment: Specimen Type: BLOOD SPEC IMENOrdering Facility: [facility] Address: [address] [place] [address] Performed By: #### 5 7021-8 ####[facility] LABORATORYCLIA [id number] [address] [place]ORPH Reviewed: unremarkable Normal [facility] Comment on above: Order Comment: Specimen Type: BLOOD SPEC IMENOrdering Facility: [facility] Address: [address] [place] [address] Performed By: #### 5 7021-8 ####[facility] LABORATORYCLIA [id number] [place] [id number] [facility] [place] WBC (Bld) [#/Vol] 16.39 10*3/uL High 3.70-11.00 [facility] Comment on above: Order Comment: Specimen Type: BLOOD SPEC IMENOrdering Facility: [facility] Address: [address] [place] [address] Performed By: #### 5 7021-8 ####[facility] LABORATORYCLIA [id number] [place] [id number] [facility] [place] [facility] CONSULT PROGon 08-07-2023 CONSULT PROG HNO ID: [id number] Author: BUCKY FLORES APRN.ENTRY LEVEL Service: Pain Management Author Type: Nurse Practitioner [...] PLAN/Recs: Continue Bupi 0.0625%/Fent epidural analgesia at 01/30/11/10 to promote comfort, mobility, and pulmonary toilet [...] OBJECTIVE PERTINENT ROS: ALLERGIES Allergen Reactions Adhes. Cflz-Ybln-Lr* Rash Adhesive Tape-Silic* Rash Augmentin [Amoxicil* Diarrhea [...] Day of surgery MEDICATIONS: Epidural Medications and MEDICATION ASSISTANT Settings Bupivacaine 0.0625% + Fentanyl 2 mcg/mL [...] (CYMBALTA) 60 mg ORAL DAILY phenol 1 Ethel (CHLORASEPTIC) 1 Ethel MUCOUS MEMBRANE (TOPICAL MOUTH AND THROAT) q [...] INTRAVENOUS CON (more content not included)... Normal [facility] Magnesium SerPl-ncon 08-07 Magnesium [Mass/Vol] 1.9 mg/dL Normal 1.7-2.3 [facility] Comment on above: Order Comment: Specimen Type: BLOOD SPEC IMENOrdering Facility: [facility] Address: [address] [place] [address] Performed By: #### 1 9123-9, 22473-0, 2777- ####[facility] LABORATORYCLIA [id number] [place] [id number] [place] Phosphate SerPl-mCncon 08-07 Phosphate [Mass/Vol] 2.3 mg/dL Low 2.7-4.8 [facility] Comment on above: Order Comment: Specimen Type: BLOOD SPEC IMENOrdering Facility: [facility] Address: [address] [place] [address] Performed By: #### 1 9123-9, 18096-8, 2777- ####[facility] LABORATORYCLIA [id number] [place] [id number] [place] Basic metabolic 2000 panelon 08-06-2023 Anion gap [Moles/Vol] 12 mmol/L Normal 9-18 [facility] Comment on above: Order Comment: Specimen Type: BLOOD SPEC IMENOrdering Facility: [facility] Address: [address] [place] [address] Performed By: #### 2 4321-2, , 2776-06 ####[facility] LABORATORYCLIA [id number] [place] [address] [place] Calcium [Mass/Vol] 8.0 mg/dL Low 8.5-10.2 [facility] Comment on above: Order Comment: Specimen Type: BLOOD SPEC IMENOrdering Facility: [facility] Address: [address] [place] [address] Performed By: #### 2 4321-2, , 2776-06 ####[facility] LABORATORYCLIA [id number] [place] [id number] [place] Chloride [Moles/Vol] 106 mmol/L High 97-105 [facility] Comment on above: Order Comment: Specimen Type: BLOOD SPEC IMENOrdering Facility: [facility] Address: [address] [place] [address] Performed By: #### 2 4321-2, , 2776-06 ####[facility] LABORATORYCLIA [id number] [place] [id number] [place] CO2 [Moles/Vol] 23 mmol/L Normal 22-30 [facility] Comment on above: Order Comment: Specimen Type: BLOOD SPEC IMENOrdering Facility: [facility] Address: [address] [place] [address] Performed By: #### 2 1-2, , 2776-06 ####[facility] LABORATORYCLIA [id number] [place] [id number] [place] Creatinine [Mass/Vol] 0.69 mg/dL Normal 0.58-0.96 [facility] Comment on above: Order Comment: Specimen Type: BLOOD SPEC IMENOrdering Facility: [facility] Address: [address] [place] [address] Performed By: #### 2 4321-2, , 2776-06 ####[facility] LABORATORYCLIA [id number] [place] [id number] [place] Creatinine and Glomerular filtration rate.predicted panel (S/P/Bld) 114 mL/min/1.73m??? Normal >=60 [facility] Comment on above: Order Comment: Specimen Type: BLOOD SPEC IMENOrdering Facility: [facility] Address: [address] [place] [address] Result Comment: Janet mated Glomerular Filtration Rate [...] actual GFR. Performed By: #### 2 4321-2, 63110-1, 2776-06 ####[facility] LABORATORYCLIA [id number] [place] [id number] [place] Glucose [Mass/Vol] 83 mg/dL Normal 74-99 [facility] Comment on above: Order Comment: Specimen Type: BLOOD SPEC IMENOrdering Facility: [facility] Address: [address] [address] Result Comment: The [place] Diabetes Association (ADA) provides guidance for cutoff [...] Standards of Medical Care in Diabetes 2016, [place] [employer]. Diabetes Care. 2016.39(Suppl 1). Performed By: #### 2 4321-2, 82695-3, 2776-06 ####[facility] LABORATORYCLIA [id number] [place] [id number] [place] Potassium [Moles/Vol] 3.8 mmol/L Normal 3.7-5.1 [facility] Comment on above: Order Comment: Specimen Type: BLOOD SPEC IMENOrdering Facility: [facility] Address: [address] [place] [address] Performed By: #### 2 4321-2, , 2776-06 ####[facility]OR[facility] LABORATORYCLIA [id number] [place] [id number] [place] Sodium [Moles/Vol] 141 mmol/L Normal 136-144 [facility] Comment on above: Order Comment: Specimen Type: BLOOD SPEC IMENOrdering Facility: [facility] Address: [address] [place] [address] Performed By: #### 2 4321-2, , 2776-06 ####GEORGE LABORATORYCLIA [id number] [place] [id number] [place] Urea nitrogen [Mass/Vol] 5 mg/dL Low 7-21 [facility] Comment on above: Order Comment: Specimen Type: BLOOD SPEC IMENOrdering Facility: [facility] Address: [address] [place], [place] [address] [address] Performed By: #### 2 4321-2, , 2776-06 ####GEOR[facility] LABORATORYCLIA [id number] [place] [id number] [place] CBC W Auto Differential pane l (Bld)on 08-06-2023 Basophils (Bld) [#/Vol] 0.37 10*3/uL High <0.11 [facility] Comment on above: Order Comment: Specimen Type: BLOOD SPEC IMENOrdering Facility: [facility] Address: Former[facility] [place] [address] Performed By: #### 5 7021-8 ####GEORGE LABORATORYCLIA [id number] [place] [id number] [place] Basophils/100 WBC (Bld) 2.0 % Normal [facility] Comment on above: Order Comment: Specimen Type: BLOOD SPEC IMENOrdering Facility: [facility] Address: [address] [place] [address] Performed By: #### 5 7021-8 ####GEOR[facility] LABORATORYCLIA [id number] [place] [id number] [place] Differential cell count method Nom (Bld) Manual Normal [facility] Comment on above: Order Comment: Specimen Type: BLOOD SPEC IMENOrdering Facility: [facility] Address: [facility] [place] [address] Performed By: #### 5 7021-8 ####GEORGE LABORATORYCLIA [id number] [place] [address] [place] Eosinophils (Bld) [#/Vol] 0.74 10*3/uL High <0.46 [facility] Comment on above: Order Comment: Specimen Type: BLOOD SPEC IMENOrdering Facility: [facility] Address: [address] [place] [address] Performed By: #### 5 7021-8 ####[facility] LABORATORYCLIA [id number] [address] [place] Eosinophils/100 WBC (Bld) 4.0 % Normal [facility] Comment on above: Order Comment: Specimen Type: BLOOD SPEC IMENOrdering Facility: [facility] Address: [address] [place] [address] Performed By: #### 5 7021-8 ####[facility] LABORATORYCLIA [id number] [address] [place] Erythrocyte distribution width (RBC) [Ratio] 14.6 % Normal 11.5-15.0 [facility] Comment on above: Order Comment: Specimen Type: BLOOD SPEC IMENOrdering Facility: [facility] Address: [address] [place] [address] Performed By: #### 5 7021-8 ####GEORGE LABORATORYCLIA [id number] [place] [address] [place] Hematocrit (Bld) [Volume fraction] 38.0 % Normal 36.0-46.0 [facility] Comment on above: Order Comment: Specimen Type: BLOOD SPEC IMENOrdering Facility: [facility] Address: [address] [place] [address] Performed By: #### 5 7021-8 ####GEORGE LABORATORYCLIA [id number] [place] [address] [place] Hemoglobin (Bld) [Mass/Vol] 11.7 g/dL Normal 11.5-15.5 [facility] Comment on above: Order Comment: Specimen Type: BLOOD SPEC IMENOrdering Facility: [facility] Address: [address] [place] [address] Performed By: #### 5 7021-8 ####[facility]IOOUR [facility] LABORATORYCLIA [id number] [place] [address] [place] [place] Lymphocytes (Bld) [#/Vol] 4.05 10*3/uL High 1.00-4.00 [facility] Comment on above: Order Comment: Specimen Type: BLOOD SPEC IMENOrdering Facility: [facility] Address: [address] [place] [address] Performed By: #### 5 7021-8 ####[facility] LABORATORYCLIA [id number] [address] [place] Lymphocytes/100 WBC (Bld) 22.0 % Normal [facility] Comment on above: Order Comment: Specimen Type: BLOOD SPEC IMENOrdering Facility: [facility] Address: [address] [place] [address] Performed By: #### 5 7021-8 ####[facility] LABORATORYCLIA [id number] [address] [place] MCH (RBC) [Entitic mass] 29.5 pg Normal 26.0-34.0 [facility] Comment on above: Order Comment: Specimen Type: BLOOD SPEC IMENOrdering Facility: [facility] Address: [address] [place] [address] Performed By: #### 5 7021-8 ####[facility] LABORATORYCLIA [id number] [place] [id number] [place] MCHC (RBC) [Mass/Vol] 30.8 g/dL Normal 30.5-36.0 [facility] Comment on above: Order Comment: Specimen Type: BLOOD SPEC IMENOrdering Facility: [facility] Address: [address] [place] [address] Performed By: #### 5 7021-8 ####GEOR[facility] LABORATORYCLIA [id number] [place] [id number] [place] MCV (RBC) [Entitic vol] 96.0 fL Normal 80.0-100.0 [facility] Comment on above: Order Comment: Specimen Type: BLOOD SPEC IMENOrdering Facility: [facility] Address: [address] [place] [address] Performed By: #### 5 7021-8 ####[facility] LABORATORYCLIA [id number] [place] [address] [place] Monocytes (Bld) [#/Vol] 1.84 10*3/uL High <0.87 [facility] Comment on above: Order Comment: Specimen Type: BLOOD SPEC IMENOrdering Facility: [facility] Address: [address] [place] [address] Performed By: #### 5 7021-8 ####[facility] LABORATORYCLIA [id number] [place] [id number] [place] Monocytes/100 WBC (Bld) 10.0 % Normal [facility] Comment on above: Order Comment: Specimen Type: BLOOD SPEC IMENOrdering Facility: [facility] Address: [address] [place] [address] Performed By: #### 5 7021-8 ####[facility] LABORATORYCLIA [id number] [place] [address] [place] Neutrophils (Bld) [#/Vol] 11.42 10*3/uL High 1.45-7.50 [facility] Comment on above: Order Comment: Specimen Type: BLOOD SPEC IMENOrdering Facility: [facility] Address: [address] [place] [address] Performed By: #### 5 7021-8 ####[facility] LABORATORYCLIA [id number] [place] [id number] [place] Neutrophils/100 WBC (Bld) 62.0 % Normal [facility] Comment on above: Order Comment: Specimen Type: BLOOD SPEC IMENOrdering Facility: [facility] Address: [address] [place] [address] Performed By: #### 5 7021-8 ####[facility] LABORATORYCLIA [id number] [place] [id number] [place] Nucleated RBC (Bld) [#/Vol] 10*3/uL Normal <0.01 [facility] Comment on above: Order Comment: Specimen Type: BLOOD SPEC IMENOrdering Facility: [facility] Address: [address] [place] [address] Performed By: #### 5 7021-8 ####[facility] LABORATORYCLIA [id number] [place] [id number] [place] Nucleated RBC/100 WBC (Bld) [Ratio] 0.0 /100 WBC Normal [facility] Comment on above: Order Comment: Specimen Type: BLOOD SPEC IMENOrdering Facility: [facility] Address: [address] [place] [address] Performed By: #### 5 7021-8 ####[facility] LABORATORYCLIA [id number] [place] [id number] [place] Platelet mean volume (Bld) [Entitic vol] 9.4 fL Normal 9.0-12.7 [facility] Comment on above: Order Comment: Specimen Type: BLOOD SPEC IMENOrdering Facility: [facility] Address: [address] [place] [address] Performed By: #### 5 7021-8 ####[facility] LABORATORYCLIA [id number] [place] [id number] [place] Platelets (Bld) [#/Vol] 415 10*3/uL High 150-400 [facility] Comment on above: Order Comment: Specimen Type: BLOOD SPEC IMENOrdering Facility: [facility] Address: [address] [place] [address] Performed By: #### 5 7021-8 ####[facility] LABORATORYCLIA [id number] [place] [id number] [place] Platelets Estimate (Bld) [#/Vol] Increased Normal [facility] Comment on above: Order Comment: Specimen Type: BLOOD SPEC IMENOrdering Facility: [facility] Address: [address] [place] [address] Performed By: #### 5 7021-8 ####[facility] LABORATORYCLIA [id number] [place] [id number] [place] RBC (Bld) [#/Vol] 3.96 10*6/uL Normal 3.90-5.20 [facility] Comment on above: Order Comment: Specimen Type: BLOOD SPEC IMENOrdering Facility: [facility] Address: [address] [place] [address] Performed By: #### 5 7021-8 ####[facility] LABORATORYCLIA [id number] [place] [id number] [facility] [place] RED CELL MORPH Reviewed: unremarkable Normal [facility] Comment on above: Order Comment: Specimen Type: BLOOD SPEC IMENOrdering Facility: [facility] Address: [address] [place] [address] Performed By: #### 5 7021-8 ####[facility] LABORATORYCLIA [id number] [place] [id number] [place] WBC (Bld) [#/Vol] 18.42 10*3/uL High 3.70-11.00 [facility] Comment on above: Order Comment: Specimen Type: BLOOD SPEC IMENOrdering Facility: [facility] Address: [address] [place] [address] Performed By: #### 5 7021-8 ####[facility] LABORATORYCLIA [id number] [place] [id number] [facility] [place] [facility] CONSULT PROGon 08-06-2023 CONSULT PROG HNO ID: [id number] Author: BUCKY FLORES APRN.ENTRY LEVEL Service: Pain Management Author Type: Nurse Practitioner [...] PLAN/Recs: Continue Bupi 0.0625%/Fent epidural analgesia at 8/15/4 to promote comfort, mobility, and pulmonary toilet. [...] OBJECTIVE PERTINENT ROS: ALLERGIES Allergen Reactions Adhes. Jrit-Alwu-Bs* Rash Adhesive Tape-Silic* Rash Augmentin [Amoxicil* Diarrhea [...] Day of surgery MEDICATIONS: Epidural Medications and MEDICATION ASSISTANT Settings Bupivacaine 0.0625% + Fentanyl 2 mcg/mL [...] (CYMBALTA) 60 mg ORAL DAILY phenol 1 Ethel (CHLORASEPTIC) 1 Ethel MUCOUS MEMBRANE (TOPICAL MOUTH AND THROAT) q [...] senna-docusate 8.6-50 (more content not included)... Normal [facility] Magnesium [facility] 08-06 Magnesium [Mass/Vol] 2.0 mg/dL Normal 1.7-2.3 [facility] Comment on above: Order Comment: Specimen Type: BLOOD SPEC IMENOrdering Facility: [facility] Address: [address] [place] [address] Performed By: #### 2 4321-2, , 2776-06 ####[facility] LABORATORYCLIA [id number] [place] [id number] [place] NURSING PROGon 08-06-2023 NURSING PROG HNO ID: [id number] Author: BUCKY JOSHI RN Service: Nursing Author Type: Registered Nurse Type: Nursing Progress Note Filed: 08/06/2023 18:19 Note Text: Other: 1410: Pt ambulated POD with standby assist. HR 150-170s at this time, returned to normal at rest. Josee MARTINEZ on unit and aware. Normal [facility] Phosphate [facility] 08-06 Phosphate [Mass/Vol] 3.0 mg/dL Normal 2.7-4.8 [facility] Comment on above: Order Comment: Specimen Type: BLOOD SPEC IMENOrdering Facility: [facility] Address: [address] [place] [address] Performed By: #### 2 4321-2, , 2776-06 ####[facility] LABORATORYCLIA [id number] [place] [id number] [place] Basic metabolic 2000 panelon 08-05-2023 Anion gap [Moles/Vol] 10 mmol/L Normal 9-18 [facility] Comment on above: Order Comment: Specimen Type: BLOOD SPEC IMENOrdering Facility: [facility] Address: [address] [place] [address] Performed By: #### 2 4321-2, HSTNT ####[facility] LABORATORYCLIA [id number] [place] [id number] [place] Calcium [Mass/Vol] 7.8 mg/dL Low 8.5-10.2 [facility] Comment on above: Order Comment: Specimen Type: BLOOD SPEC IMENOrdering Facility: [facility] Address: [address] [place] [address] Performed By: #### 2 4321-2, HSTNT ####[facility] LABORATORYCLIA [id number] [place] [address] [place] Chloride [Moles/Vol] 105 mmol/L Normal 97-105 [facility] Comment on above: Order Comment: Specimen Type: BLOOD SPEC IMENOrdering Facility: [facility] Address: [address] [place] [address] Performed By: #### 2 4321-2, HSTNT ####[facility] LABORATORYCLIA [id number] [place] [address] [place] CO2 [Moles/Vol] 24 mmol/L Normal 22-30 [facility] Comment on above: Order Comment: Specimen Type: BLOOD SPEC IMENOrdering Facility: [facility] Address: [address] [place] [address] Performed By: #### 2 4321-2, HSTNT ####[facility] LABORATORYCLIA [id number] [place] [id number] [place] Creatinine [Mass/Vol] 0.77 mg/dL Normal 0.58-0.96 [facility] Comment on above: Order Comment: Specimen Type: BLOOD SPEC IMENOrdering Facility: [facility] Address: [address] [place] [address] Performed By: #### 2 4321-2, HSTNT ####[facility] LABORATORYCLIA [id number] [place] [id number] [place] Creatinine and Glomerular filtration rate.predicted panel (S/P/Bld) 101 mL/min/1.73m??? Normal >=60 [facility] Comment on above: Order Comment: Specimen Type: BLOOD SPEC IMENOrdering Facility: [facility] Address: [address] [place] [address] Result Comment: Janet mated Glomerular Filtration Rate [...] GFR. Performed By: #### 2 4321-2, HSTNT ####[facility] LABORATORYCLIA [id number] [place] [address] [place] Glucose [Mass/Vol] 93 mg/dL Normal 74-99 [facility] Comment on above: Order Comment: Specimen Type: BLOOD SPEC IMENOrdering Facility: [facility] Address: [address] [place] [address] Result Comment: The [place] [employer] (ADA) provides guidance for cutoff [...] Standards of Medical Care in Diabetes 2016, [place] [employer]. Diabetes Care. 2016.39(Suppl 1). Performed By: #### 2 4321-2, HSTNT ####[facility] LABORATORYCLIA [id number] [place] [id number] [place] Potassium [Moles/Vol] 3.4 mmol/L Low 3.7-5.1 [facility] Comment on above: Order Comment: Specimen Type: BLOOD SPEC IMENOrdering Facility: [facility] Address: [address] [place] [address] Performed By: #### 2 4321-2, HSTNT ####[facility] LABORATORYCLIA [id number] [place] [id number] [place] Sodium [Moles/Vol] 139 mmol/L Normal 136-144 [facility] Comment on above: Order Comment: Specimen Type: BLOOD SPEC IMENOrdering Facility: [facility] Address: [address] [place] [address] Performed By: #### 2 4321-2, HSTNT ####[facility] LABORATORYCLIA [id number] [place] [id number] [place] Urea nitrogen [Mass/Vol] 7 mg/dL Normal 7-21 [facility] Comment on above: Order Comment: Specimen Type: BLOOD SPEC IMENOrdering Facility: [facility] Address: [address] [place] [address] Performed By: #### 2 4321-2, HSTNT ####[facility] LABORATORYCLIA [id number] [place] [address] [place] CBC W Auto Differential pane l (Bld)on 08-05-2023 Basophils (Bld) [#/Vol] 0.15 10*3/uL High <0.11 [facility] Comment on above: Order Comment: Specimen Type: BLOOD SPEC IMENOrdering Facility: [facility] Address: [address] [place] [address] Performed By: #### 5 7021-8 ####[facility] LABORATORYCLIA [id number] [place] [id number] [place] Basophils/100 WBC (Bld) 1.0 % Normal [facility] Comment on above: Order Comment: Specimen Type: BLOOD SPEC IMENOrdering Facility: [facility] Address: [address] [place] [address] Performed By: #### 5 7021-8 ####[facility] LABORATORYCLIA [id number] [address] [place] Differential cell count method Nom (Bld) Manual Normal [facility] Comment on above: Order Comment: Specimen Type: BLOOD SPEC IMENOrdering Facility: [facility] Address: [address] [place] [address] Performed By: #### 5 7021-8 ####[facility] LABORATORYCLIA [id number] [place] [id number] [place] Eosinophils (Bld) [#/Vol] 0.15 10*3/uL Normal <0.46 [facility] Comment on above: Order Comment: Specimen Type: BLOOD SPEC IMENOrdering Facility: [facility] Address: [address] [place] [address] Performed By: #### 5 7021-8 ####[facility] LABORATORYCLIA [id number] [place] [address] [place] Eosinophils/100 WBC (Bld) 1.0 % Normal [facility] Comment on above: Order Comment: Specimen Type: BLOOD SPEC IMENOrdering Facility: [facility] Address: [address] [place] [address] Performed By: #### 5 7021-8 ####[facility] LABORATORYCLIA [id number] [address] [place] Erythrocyte distribution width (RBC) [Ratio] 14.6 % Normal 11.5-15.0 [facility] Comment on above: Order Comment: Specimen Type: BLOOD SPEC IMENOrdering Facility: [facility] Address: [address] [place] [address] Performed By: #### 5 7021-8 ####[facility] LABORATORYCLIA [id number] [place] [id number] [place] Hematocrit (Bld) [Volume fraction] 38.5 % Normal 36.0-46.0 [facility] Comment on above: Order Comment: Specimen Type: BLOOD SPEC IMENOrdering Facility: [facility] Address: [address] [place] [address] Performed By: #### 5 7021-8 ####[facility] LABORATORYCLIA [id number] [place] [id number] [place] Hemoglobin (Bld) [Mass/Vol] 11.9 g/dL Normal 11.5-15.5 [facility] Comment on above: Order Comment: Specimen Type: BLOOD SPEC IMENOrdering Facility: [facility] Address: [address] [place] [address] Performed By: #### 5 7021-8 ####[facility] LABORATORYCLIA [id number] [place] [address] [place] Lymphocytes (Bld) [#/Vol] 2.79 10*3/uL Normal 1.00-4.00 [facility] Comment on above: Order Comment: Specimen Type: BLOOD SPEC IMENOrdering Facility: [facility] Address: [address] [place] [address] Performed By: #### 5 7021-8 ####[facility] LABORATORYCLIA [id number] [address] Lymphocytes/100 WBC (Bld) 19.0 % Normal [facility] Comment on above: Order Comment: Specimen Type: BLOOD SPEC IMENOrdering Facility: [facility] Address: [address] [place] [address] Performed By: #### 5 7021-8 ####[facility] LABORATORYCLIA [id number] [place] [address] [place] MCH (RBC) [Entitic mass] 29.2 pg Normal 26.0-34.0 [facility] Comment on above: Order Comment: Specimen Type: BLOOD SPEC IMENOrdering Facility: [facility] Address: [address] [place] [address] Performed By: #### 5 7021-8 ####[facility] LABORATORYCLIA [id number] [address] [place] MCHC (RBC) [Mass/Vol] 30.9 g/dL Normal 30.5-36.0 [facility] Comment on above: Order Comment: Specimen Type: BLOOD SPEC IMENOrdering Facility: [facility] Address: [address] [place] [address] Performed By: #### 5 7021-8 ####[facility] LABORATORYCLIA [id number] [address] [place] MCV (RBC) [Entitic vol] 94.6 fL Normal 80.0-100.0 [facility] Comment on above: Order Comment: Specimen Type: BLOOD SPEC IMENOrdering Facility: [facility] Address: [address] [place] [address] Performed By: #### 5 7021-8 ####[facility] LABORATORYCLIA [id number] [place] [id number] [place] Monocytes (Bld) [#/Vol] 0.59 10*3/uL Normal <0.87 [facility] Comment on above: Order Comment: Specimen Type: BLOOD SPEC IMENOrdering Facility: [facility] Address: [address] [place] [address] Performed By: #### 5 7021-8 ####[facility] LABORATORYCLIA [id number] [place] [id number] [place] Monocytes/100 WBC (Bld) 4.0 % Normal [facility] Comment on above: Order Comment: Specimen Type: BLOOD SPEC IMENOrdering Facility: [facility] Address: [address] [place] [address] Performed By: #### 5 7021-8 ####[facility] LABORATORYCLIA [id number] [place] [address] [place] Neutrophils (Bld) [#/Vol] 11.00 10*3/uL High 1.45-7.50 [facility] Comment on above: Order Comment: Specimen Type: BLOOD SPEC IMENOrdering Facility: [facility] Address: [address] [place] [address] Performed By: #### 5 7021-8 ####[facility] LABORATORYCLIA [id number] [place] [id number] [place] Neutrophils/100 WBC (Bld) 75.0 % Normal [facility] Comment on above: Order Comment: Specimen Type: BLOOD SPEC IMENOrdering Facility: [facility] Address: [address] [place] [address] Performed By: #### 5 7021-8 ####[facility] LABORATORYCLIA [id number] [place] [id number] [place] Nucleated RBC (Bld) [#/Vol] 10*3/uL Normal <0.01 [facility] Comment on above: Order Comment: Specimen Type: BLOOD SPEC IMENOrdering Facility: [facility] Address: [address] [place] [address] Performed By: #### 5 7021-8 ####[facility] LABORATORYCLIA [id number] [place] [id number] [place] Nucleated RBC/100 WBC (Bld) [Ratio] 0.0 /100 WBC Normal [facility] Comment on above: Order Comment: Specimen Type: BLOOD SPEC IMENOrdering Facility: [facility] Address: [address] [place] [address] Performed By: #### 5 7021-8 ####[facility] LABORATORYCLIA [id number] [place] [address] [place] Platelet mean volume (Bld) [Entitic vol] 9.2 fL Normal 9.0-12.7 [facility] Comment on above: Order Comment: Specimen Type: BLOOD SPEC IMENOrdering Facility: [facility] Address: [address] [place] [address] Performed By: #### 5 7021-8 ####[facility] LABORATORYCLIA [id number] [place] [address] [place] Platelets (Bld) [#/Vol] 431 10*3/uL High 150-400 [facility] Comment on above: Order Comment: Specimen Type: BLOOD SPEC IMENOrdering Facility: [facility] Address: [address] [place] [address] Performed By: #### 5 7021-8 ####[facility] LABORATORYCLIA [id number] [place] [id number] [place] Platelets Estimate (Bld) [#/Vol] Increased Normal [facility] Comment on above: Order Comment: Specimen Type: BLOOD SPEC IMENOrdering Facility: [facility] Address: [address] [place] [address] Performed By: #### 5 7021-8 ####[facility] LABORATORYCLIA [id number] [place] [address] [place] RBC (Bld) [#/Vol] 4.07 10*6/uL Normal 3.90-5.20 [facility] Comment on above: Order Comment: Specimen Type: BLOOD SPEC IMENOrdering Facility: [facility] Address: [address] [place] [address] Performed By: #### 5 7021-8 ####[facility] LABORATORYCLIA [id number] [address] [place] Reviewed: unremarkable Normal [facility] Comment on above: Order Comment: Specimen Type: BLOOD SPEC IMENOrdering Facility: [facility] Address: [address] [place] [address] Performed By: #### 5 7021-8 ####[facility] LABORATORYCLIA [id number] [address] [place] WBC (Bld) [#/Vol] 14.67 10*3/uL High 3.70-11.00 [facility] Comment on above: Order Comment: Specimen Type: BLOOD SPEC IMENOrdering Facility: [facility] Address: [address] [place] [address] Performed By: #### 5 7021-8 ####[facility] LABORATORYCLIA [id number] [address] CONSULT PROGon 08-05-2023 CONSULT PROG HNO ID: [id number] Author: BRIE ROJO APRN.ENTRY LEVEL Service: Pain Management Author Type: Nurse Practitioner [...] OBJECTIVE PERTINENT ROS: ALLERGIES Allergen Reactions Adhes. Ijmx-Bbhn-Rw* Rash Adhesive Tape-Silic* Rash Augmentin [Amoxicil* Diarrhea Keflex [Cephalexin] Rash, Itching Penicillins Hives Ultram [Tramadol Hc* Itching Information retrieved from Allergy section. Is the patient intubated and sedated? No. Numbness?: No Weakness?: No Nausea?: No Vomitting?: No Pruritis?: No Back pain?: No Headache?: No Sedation?: No Confusion/Delirium?: No Other: none Epidural Location: Thoracic Epidural catheter placed: Day of surgery MEDICATIONS: Epidural Medications and MEDICATION ASSISTANT Settings Bupivacaine 0.0625% + Fentanyl 2 mcg/mL [...] (CYMBALTA) 60 mg ORAL DAILY phenol 1 Ethel (CHLORASEPTIC) 1 Ethel MUCOUS MEMBRANE (TOPICAL MOUTH AND THROAT) q [...] SUBCUTANEOUS q (more content not included)... Normal [facility] HIGH SENSITIVITY TROPONIN To n 08-05-2023 Troponin T.cardiac High sensitivity method [Mass/Vol] <6 Normal <12 [facility] Comment on above: Order Comment: Specimen Type: BLOOD SPEC IMENOrdering Facility: [facility] Address: [address] [place], [place] [address] [address] Result Comment: When assessing risk for acute [...] MACE. Performed By: #### 2 4321-2, HSTNT ####[facility] LABORATORYCLIA [id number] [address] NURSING PROGon 08-05-2023 NURSING PROG HNO ID: [id number] Author: DIANA PATHAK, SUSAN Service: Radiology Author Type: Registered Nurse Type: Nursing Progress Note Filed: 08/05/2023 11:42 Note Text: Nursing Progress Note Patient Name: Susi Ortiz Patient Location: [place] [address] [address] Daily Note: 1100: Called to floor for difficult IV access. #22g 2 inch IV started to right FA under US guidance. Flushes well with brisk blood return. This note was completed by: Diana Pathak [facility] NURSING PROG HNO ID: [id number] Author: KIRA VANCE RN Service: ? Author [...] yellow/rupinder urine. Epidural intact and infusing per 802: Called vascular access for a new peripheral IV access, pt is US placement. Vascular access at bedside and placed peripheral IV. [facility] PT EDon 08-05-2023 PT ED HNO ID: [id number] Author: TASNEEM GOOD RD Service: NST-Nutrition Support [...] SIGNATURE: Tasneem Good RD PATIENT NAME: Susi Ortiz DATE: August 05, 2023 TIME: 12:20 PM PAGER: [facility] ANES PRE-OPon 08-04-2023 ANES PRE-OP HNO ID: [id number] Author: AMANDA ALCANTAR DO Service: Anesthesiology Author [...] Location: [facility] OR06 / [facility] Surgeons: Joe Granda MD Estimated body [...] and consent discussed: yes. Patient / Responsible Republican agrees to proceed: yes Patient / Surrogate [...] montelukast (SINGULA (more content not included)... Normal [facility] BRIEF OP NOTon 02-06-2024 BRIEF OP NOT HNO ID: [id number] Author: JOE GRANDA MD Service: General Surgery Author Type: Physician Type: Brief Op Note Filed: 08/04/2023 15:27 Note Text: BRIEF OPERATIVE NOTE [facility] LOG ID: [id number] SURGERY/PROCEDURE DATE: 08/04/2023 INCISION/PROCEDURE START TIME: 9:39 AM INCISION CLOSE/PROCEDURE END TIME: 2:39 PM SURGEON(S) AND SECURITY REPRESENTATIVE(S): Surgeon(s) and Role: * Joe Granda MD [...] Som Hampton MD PATIENT NAME: Susi Naqvi Ortiz DATE: August 04, 2023 TIME: 3:01 PM [id number] Joe Granda MD [facility] Basic metabolic 2000 panelon 08-04-2023 Anion gap [Moles/Vol] 13 mmol/L Normal -18 [facility] Comment on above: Order Comment: Specimen Type: BLOOD SPEC IMENOrdering Facility: [facility] Address: [address] [place], [place] [address] [id number] Performed By: #### 1 9123-9, 45384-9, 2776-06 ####[facility] LABORATORYCLIA [id number] [place] [id number] [place] Calcium [Mass/Vol] 8.5 mg/dL Normal 8.5-10.2 [facility] Comment on above: Order Comment: Specimen Type: BLOOD SPEC IMENOrdering Facility: [facility] Address: [address] [place] [address] Performed By: #### 1 9123-9, 73657-7, 2776-06 ####[facility]OR[facility] LABORATORYCLIA [id number] [place] [address] [place] Chloride [Moles/Vol] 101 mmol/L Normal 97-105 [facility] Comment on above: Order Comment: Specimen Type: BLOOD SPEC IMENOrdering Facility: [facility] Address: [address] [place] [address] Performed By: #### 1 9123-9, 41554-8, 2776-06 ####[facility] LABORATORYCLIA [id number] [place] [id number] [place] CO2 [Moles/Vol] 20 mmol/L Low 22-30 [facility] Comment on above: Order Comment: Specimen Type: BLOOD SPEC IMENOrdering Facility: [facility] Address: [address] [place] [address] Performed By: #### 1 9123-9, 16588-5, 2776-06 ####[facility] LABORATORYCLIA [id number] [place] [id number] [place] Creatinine [Mass/Vol] 0.69 mg/dL Normal 0.58-0.96 [facility] Comment on above: Order Comment: Specimen Type: BLOOD SPEC IMENOrdering Facility: [facility] Address: [address] [place] [address] Performed By: #### 1 9123-9, 14981-6, 2776-06 ####[facility] LABORATORYCLIA [id number] [place] [id number] [place] Creatinine and Glomerular filtration rate.predicted panel (S/P/Bld) 114 mL/min/1.73m??? Normal >=60 [facility] Comment on above: Order Comment: Specimen Type: BLOOD SPEC IMENOrdering Facility: [facility] Address: [address] [place] [address] Result Comment: Janet mated Glomerular Filtration Rate [...] actual GFR. Performed By: #### 1 9123-9, 48436-7, 2776- ####[facility] LABORATORYCLIA [id number] [place] [address] [place] Glucose [Mass/Vol] 137 mg/dL High 74-99 [facility] Comment on above: Order Comment: Specimen Type: BLOOD SPEC IMENOrdering Facility: [facility] Address: [address] [place] [address] Result Comment: The [place] Diabetes Association (ADA) provides guidance for cutoff [...] Standards of Medical Care in Diabetes 2016, [place] [employer]. Diabetes Care. 2016.39(Suppl 1). Performed By: #### 1 9123-9, 94496-7, 2776-06 ####[facility] LABORATORYCLIA [id number] [place] [id number] [place] Potassium [Moles/Vol] 5.1 mmol/L Normal 3.7-5.1 [facility] Comment on above: Order Comment: Specimen Type: BLOOD SPEC IMENOrdering Facility: [facility] Address: [address] [place] [address] Performed By: #### 1 9123-9, 29461-6, 2776-06 ####GEOR[facility] LABORATORYCLIA [id number] [place] [address] [place] Sodium [Moles/Vol] 134 mmol/L Low 136-144 [facility] Comment on above: Order Comment: Specimen Type: BLOOD SPEC IMENOrdering Facility: [facility] Address: [address] [place] [address] Performed By: #### 1 9123-9, 53285-1, 2776-06 ####GEOR[facility] LABORATORYCLIA [id number] [place] [address] [place] Urea nitrogen [Mass/Vol] 7 mg/dL Normal 7-21 [facility] Comment on above: Order Comment: Specimen Type: BLOOD SPEC IMENOrdering Facility: [facility] Address: [address] [place] [address] Performed By: #### 1 9123-9, 46979-8, 2776-06 ####GEOR[facility] LABORATORYCLIA [id number] [place] [address] [place] CBC W Auto Differential pane l (Bld)on 08-04-2023 Basophils (Bld) [#/Vol] 0.06 10*3/uL Normal <0.11 [facility] Comment on above: Order Comment: Specimen Type: BLOOD SPEC IMENOrdering Facility: [facility] Address: [address] [place] [address] Performed By: #### 5 7021-8 ####GEOR[facility] LABORATORYCLIA [id number] [place] [id number] [place] Basophils/100 WBC (Bld) 0.3 % Normal [facility] Comment on above: Order Comment: Specimen Type: BLOOD SPEC IMENOrdering Facility: [facility] Address: [address] [place] [address] Performed By: #### 5 7021-8 ####GEOR[facility] LABORATORYCLIA [id number] [place] [address] [place] Differential cell count method Nom (Bld) Auto Normal [facility] Comment on above: Order Comment: Specimen Type: BLOOD SPEC IMENOrdering Facility: [facility] Address: [address] [place] [address] Performed By: #### 5 7021-8 ####GEOR[facility] LABORATORYCLIA [id number] [place] [address] [place] Eosinophils (Bld) [#/Vol] 0.07 10*3/uL Normal <0.46 [facility] Comment on above: Order Comment: Specimen Type: BLOOD SPEC IMENOrdering Facility: [facility] Address: [address] [place] [address] Performed By: #### 5 7021-8 ####[facility] LABORATORYCLIA [id number] [place] [address] [place] Eosinophils/100 WBC (Bld) 0.4 % Normal [facility] Comment on above: Order Comment: Specimen Type: BLOOD SPEC IMENOrdering Facility: [facility] Address: [address] [place] [address] Performed By: #### 5 7021-8 ####[facility] LABORATORYCLIA [id number] [address] [place] Erythrocyte distribution width (RBC) [Ratio] 14.2 % Normal 11.5-15.0 [facility] Comment on above: Order Comment: Specimen Type: BLOOD SPEC IMENOrdering Facility: [facility] Address: [address] [place] [address] Performed By: #### 5 7021-8 ####[facility] LABORATORYCLIA [id number] [address] [place] Hematocrit (Bld) [Volume fraction] 40.3 % Normal 36.0-46.0 [facility] Comment on above: Order Comment: Specimen Type: BLOOD SPEC IMENOrdering Facility: [facility] Address: [address] [place] [address] Performed By: #### 5 7021-8 ####[facility] LABORATORYCLIA [id number] [place] [id number] [place] Hemoglobin (Bld) [Mass/Vol] 13.0 g/dL Normal 11.5-15.5 [facility] Comment on above: Order Comment: Specimen Type: BLOOD SPEC IMENOrdering Facility: [facility] Address: [address] [place] [address] Performed By: #### 5 7021-8 ####[facility] LABORATORYCLIA [id number] [place] [id number] [place] Immature granulocytes (Bld) [#/Vol] 0.05 10*3/uL Normal <0.10 [facility] Comment on above: Order Comment: Specimen Type: BLOOD SPEC IMENOrdering Facility: [facility] Address: [address] [place] [address] Performed By: #### 5 7021-8 ####GEOR[facility] LABORATORYCLIA [id number] [place] [address] [place] Immature granulocytes/100 WBC (Bld) 0.3 % Normal [facility] Comment on above: Order Comment: Specimen Type: BLOOD SPEC IMENOrdering Facility: [facility] Address: [address] [place] [address] Performed By: #### 5 7021-8 ####GE[facility] LABORATORYCLIA [id number] [place] [address] [place] Lymphocytes (Bld) [#/Vol] 1.82 10*3/uL Normal 1.00-4.00 [facility] Comment on above: Order Comment: Specimen Type: BLOOD SPEC IMENOrdering Facility: [facility] Address: [address] [place] [address] Performed By: #### 5 7021-8 ####[facility] LABORATORYCLIA [id number] [place] [id number] [place] Lymphocytes/100 WBC (Bld) 9.7 % Normal [facility] Comment on above: Order Comment: Specimen Type: BLOOD SPEC IMENOrdering Facility: [facility] Address: [address] [place], [place] [address] Performed By: #### 5 7021-8 ####[facility] LABORATORYCLIA [id number] [place] [id number] [place] MCH (RBC) [Entitic mass] 29.4 pg Normal 26.0-34.0 [facility] Comment on above: Order Comment: Specimen Type: BLOOD SPEC IMENOrdering Facility: [facility] Address: [address] [place] [address] Performed By: #### 5 7021-8 ####[facility] LABORATORYCLIA [id number] [place] [address] [place] MCHC (RBC) [Mass/Vol] 32.3 g/dL Normal 30.5-36.0 [facility] Comment on above: Order Comment: Specimen Type: BLOOD SPEC IMENOrdering Facility: [facility] Address: [address] [place] [address] Performed By: #### 5 7021-8 ####[facility] LABORATORYCLIA [id number] [place] [address] [place] MCV (RBC) [Entitic vol] 91.2 fL Normal 80.0-100.0 [facility] Comment on above: Order Comment: Specimen Type: BLOOD SPEC IMENOrdering Facility: [facility] Address: [address] [place] [address] Performed By: #### 5 7021-8 ####[facility] LABORATORYCLIA [id number] [place] [id number] [place] Monocytes (Bld) [#/Vol] 1.16 10*3/uL High <0.87 [facility] Comment on above: Order Comment: Specimen Type: BLOOD SPEC IMENOrdering Facility: [facility] Address: [address] [place] [address] Performed By: #### 5 7021-8 ####[facility] LABORATORYCLIA [id number] [address] [place] Monocytes/100 WBC (Bld) 6.2 % Normal [facility] Comment on above: Order Comment: Specimen Type: BLOOD SPEC IMENOrdering Facility: [facility] Address: [address] [place] [address] Performed By: #### 5 7021-8 ####[facility] LABORATORYCLIA [id number] [place] [id number] [place] Neutrophils (Bld) [#/Vol] 15.62 10*3/uL High 1.45-7.50 [facility] Comment on above: Order Comment: Specimen Type: BLOOD SPEC IMENOrdering Facility: [facility] Address: [address] [place] [address] Performed By: #### 5 7021-8 ####[facility] LABORATORYCLIA [id number] [place] [id number] [place] Neutrophils/100 WBC (Bld) 83.1 % Normal [facility] Comment on above: Order Comment: Specimen Type: BLOOD SPEC IMENOrdering Facility: [facility] Address: [address] [place] [address] Performed By: #### 5 7021-8 ####[facility] LABORATORYCLIA [id number] [place] [id number] [place] Nucleated RBC (Bld) [#/Vol] 10*3/uL Normal <0.01 [facility] Comment on above: Order Comment: Specimen Type: BLOOD SPEC IMENOrdering Facility: [facility] Address: [address] [place] [address] Performed By: #### 5 7021-8 ####[facility] LABORATORYCLIA [id number] [place] [id number] [place] Nucleated RBC/100 WBC (Bld) [Ratio] 0.0 /100 WBC Normal [facility] Comment on above: Order Comment: Specimen Type: BLOOD SPEC IMENOrdering Facility: [facility] Address: [address] [place] [address] Performed By: #### 5 7021-8 ####[facility] LABORATORYCLIA [id number] [place] [id number] [place] Platelet mean volume (Bld) [Entitic vol] 9.2 fL Normal 9.0-12.7 [facility] Comment on above: Order Comment: Specimen Type: BLOOD SPEC IMENOrdering Facility: [facility] Address: [address] [place] [address] Performed By: #### 5 7021-8 ####[facility] LABORATORYCLIA [id number] [place] [id number] [place] Platelets (Bld) [#/Vol] 502 10*3/uL High 150-400 [facility] Comment on above: Order Comment: Specimen Type: BLOOD SPEC IMENOrdering Facility: [facility] Address: [address] [place] [address] Performed By: #### 5 7021-8 ####[facility] LABORATORYCLIA [id number] [place] [id number] [place] RBC (Bld) [#/Vol] 4.42 10*6/uL Normal 3.90-5.20 [facility] Comment on above: Order Comment: Specimen Type: BLOOD SPEC IMENOrdering Facility: [facility] Address: [address] [place] [address] Performed By: #### 5 7021-8 ####[facility] LABORATORYCLIA [id number] [place] [id number] [place] WBC (Bld) [#/Vol] 18.78 10*3/uL High 3.70-11.00 [facility] Comment on above: Order Comment: Specimen Type: BLOOD SPEC IMENOrdering Facility: [facility] Address: [address] [place] [address] Performed By: #### 5 7021-8 ####[facility] LABORATORYCLIA [id number] [place] [id number] [facility] [place] HIGH SENSITIVITY TROPONIN To n 08-04-2023 Troponin T.cardiac High sensitivity method [Mass/Vol] 7 ng/L Normal <12 [facility] Comment on above: Order Comment: Specimen Type: BLOOD SPEC IMENOrdering Facility: [facility] Address: [address] [place] [address] Result Comment: When assessing risk for acute [...] day MACE. Performed By: #### H STNT ####[facility] LABORATORYCLIA [id number] [place] [id number] [place] Magnesium SerPl-mCncon 08-04 Magnesium [Mass/Vol] 1.8 mg/dL Normal 1.7-2.3 [facility] Comment on above: Order Comment: Specimen Type: BLOOD SPEC IMENOrdering Facility: [facility] Address: Formerly named [facility] [place] [address] Performed By: #### 1 9123-9, 90160-2, 2777-1 ####[facility] LABORATORYCLIA [id number] [address] [place] NURSING PROGon 08-04-2023 NURSING PROG HNO ID: [id number] Author: KIRA VANCE, SUSAN Service: ? Author Type: Registered Nurse Type: Nursing Progress Note Filed: 08/04/2023 17:06 Note Text: Transfer Note: PATIENT NAME: Susi Ortiz Patient Location: [place] [address] [address] Room: [place] [address] Patient transferred into room/unit PK32 in stable condition. Actions taken: No futher actions taken at this time. Will continue to monitor and check with patient. 1705: Sent text page to surgical team, pt has epidural and need order for tele and pulse ox. [facility] NURSING PROG HNO ID: [id number] Author: KINGA HERNANDEZ, SUSAN Service: Nursing Author Type: Registered Nurse Type: Nursing Progress Note Filed: 08/04/2023 07:38 Note Text: 0700- Patient refusing PANCHO hose and SCDs at this time. 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 [facility] NURSING PROG HNO ID: [id number] Author: KIEL MALONEY, SUSAN Service: Pain Management Author Type: Registered Nurse Type: Nursing Progress Note Filed: 08/04/2023 08:16 Note Text: THORACIC EPIDURAL ( T8) Dr. Lopez and Dr. Wiggins Patient verbalized understanding of epidural procedure. Patient tolerated procedure very well. [facility] NURSING PROG HNO ID: [id number] Author: KINGA HERNANDEZ, RN Service: Nursing Author Type: Registered Nurse Type: Nursing Progress Note Filed: 08/04/2023 06:40 Note Text: PATIENT EDUCATION TOPIC: PROCEDURE / SURGERY: Pre-op Teaching: Surgical Safety Principles PATIENT NAME: Susi Ortiz PATIENT LOCATION: OR [place]/FV OR POOL READINESS TO LEARN COGNITIVE ABILITY: [...] (RECOMMENDATION): None Electronically Signed By: Kinga Hernandez [facility] OPERATIVE NOon 08-04-2023 OPERATIVE NO HNO ID: [id number] Author: JOE GRANDA MD Service: General Surgery Author Type: Physician Type: Operative Report Filed: 08/05/2023 15:18 Note Text: [facility] - Operative Report SUSI ORTIZ : 1985 AGE: 38. SEX: F PATIENT TYPE: I HOSP SVC: Surgical LOCATION: [facility] ATTENDING PHYSICIAN: Joe Granda M.D. CSN NUMBER: [id number] DATE OF SURGERY/PROCEDURE: 08/04/2023 INCISION/PROCEDURE START TIME: 9:39 AM INCISION CLOSE/PROCEDURE END TIME: 2:39 PM PREOPERATIVE DIAGNOSIS: 1. Persistent morbid obesity. 2. 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 3. History of open splenectomy. POSTOPERATIVE DIAGNOSIS: 1. Persistent morbid obesity. 2. 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 3. History of open splenectomy. SURGEON: Joe Granda M.D. SECURITY REPRESENTATIVE: 1. Cony Soler MD. 2. Som Hampton [...] during the duodenal dissection. Joe Granda M.D. ESTEFANIA:[id number] /[id number] D: (more content not included)... Normal [facility] Phosphate SerPl-mCncon 08-04 Phosphate [Mass/Vol] 3.9 mg/dL Normal 2.7-4.8 [facility] Comment on above: Order Comment: Specimen Type: BLOOD SPEC IMENOrdering Facility: [facility] Address: [address] [place] [address] [place] [address] Performed By: #### 1 9123-9, 48709-6, 2777-1 ####[facility] [id number] [address] Nick 08-03-2023 CNPN Telephone (GENI) ANGELSUSI Naqvi ([id number]) 1985 F FNS Date Time Provider Department 08/03/23 SILVIA CURRY During your visit today, we recorded the following information about you: Silvia Curry, RN 08/03/2023 5:00 PM Signed [facility] COORDINATION SURGERY PRE-OP EDUCATION NOTE Phoned patient to reinforce prior pre-op instruction and answer any questions she might have. No answer. Left brief vmm including contact info for this RN and requested call back. Allergies As of Date: 08/03/2023 Noted Allergy Reaction ADHES. [id number] 03/13/2015 2 - Rash ADHESIVE TAPE-SILICONES 05/06/2019 [...] Status:Closed by SILVIA CURRY on 08/03/23 Normal [facility] HISTORY PHYSICALon HISTORY PHYSICAL HNO ID: [id number] Author: NONI SUMMERS APRN.ENTRY LEVEL Service: ? Author Type: Nurse Practitioner Type: [...] on CPAP Assessment: Noncompliant with CPAP Thrombocytosis ([facility]) Assessment: chronic leukocytosis and thrombocytosis Most recent labs CBC with diff: WBC 13.23 07/13/2023 Platelet Count 555 07/13/2023 Bipolar affective disorder ([facility]) Assessment: managed on medication by PCP and [...] orally disintegrat (more content not included)... Normal [facility] TYPE AND SCREEN,30 DAYon ABO A Normal [facility] Comment on above: Order Comment: Specimen Type: BLOOD SPEC IMEN [facility] Address: [address] [place] [address] Performed By: #### 2 284-8, 27308, 2132-02 #### [facility] CLIA [id number] [address] [place] [address] [place] HISTORICAL AB SCR STATUS Negative Normal [facility] Comment on above: Order Comment: Specimen Type: BLOOD SPEC IMEN [facility] Address: [address] [place] [address] Performed By: #### 2 284-8, 27308, 2132-02 #### [facility] CLIA [id number] [address] [place] [address] [place] Rh Nom (Bld) Positive Normal [facility] Comment on above: Order Comment: Specimen Type: BLOOD SPEC IMEN [facility] Address: [address] [place] [address] Performed By: #### 2 284-8, 2738, 2132-02 #### [facility] CLIA [id number] [address] [place] [address] [place] CNOVon 07-20-2023 CNOV Office Visit (BMIREJ ) SUSI ORTIZ ([id number]) 1985 F FNS Date Time Provider Department 07/20/23 11:50 AM JOE GRANDA [facility] During your visit today, we recorded the following information about you: Pulse Blood pressure Weight Height 77/minute 121/78 175 kg 1.626 m Last Period 07/08/23 Joe Granda MD 07/20/2023 2:06 PM Signed SURGERY PREOPERATIVE VISIT NOTE Name: Susi Ortiz Medical Record: [id number] Encounter No.: [id number] Susi Ortiz is a 38 year old [...] use: Never ALLERGIES: ALLERGIES Allergen Reactions Adhes. 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 I have also discussed medical complications including urinary tract infections, myocardial infarction, DVT, PE, prolonged ICU stay, and possible postoperative mechanical ventilation and the risk of mortality. I have reviewed with this patient needed nutritional changes, post-operative recovery, and the potential (more content not included)... Normal [facility] CBC W Auto Differential pane l (Bld)on 07-13-2023 Basophils (Bld) [#/Vol] 0.11 10*3/uL High <0.11 [facility] Comment on above: Order Comment: Specimen Type: BLOOD SPEC IMENOrdering Facility: [facility] Address: [address] [place] [address] Performed By: #### 5 7021-8 ####[facility] LABCLIA [id number] [place] [address] Basophils/100 WBC (Bld) 0.8 % Normal [facility] Comment on above: Order Comment: Specimen Type: BLOOD SPEC IMENOrdering Facility: [facility] Address: [address] [place] [address] Performed By: #### 5 7021-8 ####[facility] LABCLIA [id number] [place] [address] Differential cell count method Nom (Bld) Auto Normal [facility] Comment on above: Order Comment: Specimen Type: BLOOD SPEC IMENOrdering Facility: [facility] Address: [address] [place] [address] Performed By: #### 5 7021-8 ####[facility] LABCLIA [id number] [place] [address] Eosinophils (Bld) [#/Vol] 0.31 10*3/uL Normal <0.46 [facility] Comment on above: Order Comment: Specimen Type: BLOOD SPEC IMENOrdering Facility: [facility] Address: [address] [place] [address] Performed By: #### 5 7021-8 ####[facility] LABCLIA [id number] [place] [address] Eosinophils/100 WBC (Bld) 2.3 % Normal [facility] Comment on above: Order Comment: Specimen Type: BLOOD SPEC IMENOrdering Facility: [facility] Address: [address] [place] [address] Performed By: #### 5 7021-8 ####[facility] LABCLIA [id number] [place] [address] Erythrocyte distribution width (RBC) [Ratio] 14.1 % Normal 11.5-15.0 [facility] Comment on above: Order Comment: Specimen Type: BLOOD SPEC IMENOrdering Facility: [facility] Address: [address] [place] [address] Performed By: #### 5 7021-8 ####[facility] LABCLIA [id number] [place] [address] Hematocrit (Bld) [Volume fraction] 45.8 % Normal 36.0-46.0 [facility] Comment on above: Order Comment: Specimen Type: BLOOD SPEC IMENOrdering Facility: [facility] Address: [address] [place] [address] Performed By: #### 5 7021-8 ####[facility] LABCLIA [id number] [place] [address] Hemoglobin (Bld) [Mass/Vol] 14.7 g/dL Normal 11.5-15.5 [facility] Comment on above: Order Comment: Specimen Type: BLOOD SPEC IMENOrdering Facility: [facility] Address: [address] [place] [address] Performed By: #### 5 7021-8 ####[facility] LABCLIA [id number] [place] [address] Immature granulocytes (Bld) [#/Vol] 0.05 10*3/uL Normal <0.10 [facility] Comment on above: Order Comment: Specimen Type: BLOOD SPEC IMENOrdering Facility: [facility] Address: [address] [place], [place] [address] Performed By: #### 5 7021-8 ####[facility] LABCLIA [id number] [place] [address] Immature granulocytes/100 WBC (Bld) 0.4 % Normal [facility] Comment on above: Order Comment: Specimen Type: BLOOD SPEC IMENOrdering Facility: [facility] Address: [address] [place] [address] Performed By: #### 5 7021-8 ####[facility] LABCLIA [id number] [place] [address] Lymphocytes (Bld) [#/Vol] 3.61 10*3/uL Normal 1.00-4.00 [facility] Comment on above: Order Comment: Specimen Type: BLOOD SPEC IMENOrdering Facility: [facility] Address: [address] [place] [address] Performed By: #### 5 7021-8 ####[facility] LABCLIA [id number] [place] [address] Lymphocytes/100 WBC (Bld) 27.3 % Normal [facility] Comment on above: Order Comment: Specimen Type: BLOOD SPEC IMENOrdering Facility: [facility] Address: [address] [place] [address] Performed By: #### 5 7021-8 ####[facility] LABCLIA [id number] [place] [address] MCH (RBC) [Entitic mass] 28.9 pg Normal 26.0-34.0 [facility] Comment on above: Order Comment: Specimen Type: BLOOD SPEC IMENOrdering Facility: [facility] Address: [address] [place] [address] Performed By: #### 5 7021-8 ####[facility] LABIA [id number] [place] [address] MCHC (RBC) [Mass/Vol] 32.1 g/dL Normal 30.5-36.0 [facility] Comment on above: Order Comment: Specimen Type: BLOOD SPEC IMENOrdering Facility: [facility] Address: [address] [place] [address] Performed By: #### 5 7021-8 ####[facility] LABCLIA [id number] [place] [address] MCV (RBC) [Entitic vol] 90.0 fL Normal 80.0-100.0 [facility] Comment on above: Order Comment: Specimen Type: BLOOD SPEC IMENOrdering Facility: [facility] Address: [address] [place] [address] Performed By: #### 5 7021-8 ####[facility] LABCLIA [id number] [place] [address] Monocytes (Bld) [#/Vol] 1.10 10*3/uL High <0.87 [facility] Comment on above: Order Comment: Specimen Type: BLOOD SPEC IMENOrdering Facility: [facility] Address: [address] [place] [address] Performed By: #### 5 7021-8 ####[facility] LABIA [id number] [place] [address] Monocytes/100 WBC (Bld) 8.3 % Normal [facility] Comment on above: Order Comment: Specimen Type: BLOOD SPEC IMENOrdering Facility: [facility] Address: [address] [place] [address] Performed By: #### 5 7021-8 ####[facility] LABCLIA [id number] [place] [address] Neutrophils (Bld) [#/Vol] 8.05 10*3/uL High 1.45-7.50 [facility] Comment on above: Order Comment: Specimen Type: BLOOD SPEC IMENOrdering Facility: [facility] Address: [address] [place] [address] Performed By: #### 5 7021-8 ####[facility] LABCLIA [id number] [place] [address] Neutrophils/100 WBC (Bld) 60.9 % Normal [facility] Comment on above: Order Comment: Specimen Type: BLOOD SPEC IMENOrdering Facility: [facility] Address: [address] [place] [address] Performed By: #### 5 7021-8 ####[facility] LABIA [id number] [place] [address] Nucleated RBC (Bld) [#/Vol] 10*3/uL Normal <0.01 [facility] Comment on above: Order Comment: Specimen Type: BLOOD SPEC IMENOrdering Facility: [facility] Address: [address] [place] [address] Performed By: #### 5 7021-8 ####[facility] LABIA [id number] [place] [address] Nucleated RBC/100 WBC (Bld) [Ratio] 0.0 /100 WBC Normal [facility] Comment on above: Order Comment: Specimen Type: BLOOD SPEC IMENOrdering Facility: [facility] Address: [address] [place] [address] Performed By: #### 5 7021-8 ####[facility] LABIA [id number] [place] [address] Platelet mean volume (Bld) [Entitic vol] 9.1 fL Normal 9.0-12.7 [facility] Comment on above: Order Comment: Specimen Type: BLOOD SPEC IMENOrdering Facility: [facility] Address: [address] [place] [address] Performed By: #### 5 7021-8 ####[facility] LABIA [id number] [place] [address] Platelets (Bld) [#/Vol] 555 10*3/uL High 150-400 [facility] Comment on above: Order Comment: Specimen Type: BLOOD SPEC IMENOrdering Facility: [facility] Address: [address] [place] [address] Performed By: #### 5 7021-8 ####[facility] LABCLIA [id number] [place] [address] RBC (Bld) [#/Vol] 5.09 10*6/uL Normal 3.90-5.20 [facility] Comment on above: Order Comment: Specimen Type: BLOOD SPEC IMENOrdering Facility: [facility] Address: [address] [place] [address] Performed By: #### 5 7021-8 ####[facility] LABCLIA [id number] [place] [address] WBC (Bld) [#/Vol] 13.23 10*3/uL High 3.70-11.00 [facility] Comment on above: Order Comment: Specimen Type: BLOOD SPEC IMENOrdering Facility: [facility] Address: [address] [place] [address] Performed By: #### 5 7021-8 ####[facility] LABCLIA [id number] [place] [address] Comprehensive metabolic 2000 panelon 07-13-2023 Albumin [Mass/Vol] 4.5 g/dL Normal 3.9-4.9 [facility] Comment on above: Order Comment: Specimen Type: BLOOD SPEC IMEN [facility] Address: [address] [place] [address] Performed By: #### 2 284-8, 2738, 2132-02 #### [facility] CLIA [id number] [address] [place] [id number] [place] ALP [Catalytic activity/Vol] 124 U/L High 34-123 [facility] Comment on above: Order Comment: Specimen Type: BLOOD SPEC IMEN [facility] Address: [address] [place] [address] Performed By: #### 2 284-8, 273-8, 2132-02 #### [facility] CLIA [id number] [address] [place] [address] [place] ALT [Catalytic activity/Vol] 18 U/L Normal 7-38 [facility] Comment on above: Order Comment: Specimen Type: BLOOD SPEC IMEN [facility] Address: [address] [place] [address] Performed By: #### 2 284-8, 2731-8, 2132-02 #### [facility] CLIA [id number] [address] [place] [address] [place] Anion gap [Moles/Vol] 11 mmol/L Normal 9-18 [facility] Comment on above: Order Comment: Specimen Type: BLOOD SPEC IMEN [facility] Address: [address] [place] [address] Performed By: #### 2 284-8, 2730-8, 2132-02 #### [facility] CLIA [id number] [address] [place] [address] [place] AST [Catalytic activity/Vol] 21 U/L Normal 13-35 [facility] Comment on above: Order Comment: Specimen Type: BLOOD SPEC IMEN [facility] Address: [address] [place] [address] Performed By: #### 2 284-8, 2730-8, 2132-02 #### [facility] CLIA [id number] [address] [place] [address] [place] Bilirubin [Mass/Vol] 0.3 mg/dL Normal 0.2-1.3 [facility] Comment on above: Order Comment: Specimen Type: BLOOD SPEC IMEN [facility] Address: [address] [place] [address] Performed By: #### 2 284-8, 273-8, 2132-02 #### [facility] CLIA [id number] [address] [place] [address] [place] Calcium [Mass/Vol] 10.0 mg/dL Normal 8.5-10.2 [facility] Comment on above: Order Comment: Specimen Type: BLOOD SPEC IMEN [facility] Address: [address] [place] [address] Performed By: #### 2 284-8, 8, 2132-02 #### [facility] CLIA [id number] [address] [place] [address] [place] Chloride [Moles/Vol] 101 mmol/L Normal 97-105 [facility] Comment on above: Order Comment: Specimen Type: BLOOD SPEC IMEN [facility] Address: [address] [place] [address] Performed By: #### 2 284-8, 8, 2132-02 #### [facility] CLIA [id number] [address] [place] [address] [place] CO2 [Moles/Vol] 25 mmol/L Normal 22-30 [facility] Comment on above: Order Comment: Specimen Type: BLOOD SPEC IMEN [facility] Address: [address] [place] [address] Performed By: #### 2 284-8, 8, 2132-02 #### [facility] CLIA [id number] [address] [place] [address] [place] Creatinine [Mass/Vol] 0.73 mg/dL Normal 0.58-0.96 [facility] Comment on above: Order Comment: Specimen Type: BLOOD SPEC IMEN [facility] Address: [address] [place] [address] Performed By: #### 2 284-8, 8, 2132-02 #### [facility] CLIA [id number] [address] [place] [address] [place] Creatinine and Glomerular filtration rate.predicted panel (S/P/Bld) 108 mL/min/1.73m??? Normal >=60 [facility] Comment on above: Order Comment: Specimen Type: BLOOD SPEC IMEN [facility] Address: [address] [place] [address] Result Comment: Janet mated Glomerular Filtration Rate [...] reflect actual GFR. Performed By: #### 2 284-8, 2730-8, 2132-02 #### [facility] CLIA [id number] [address] [place] [address] [place] Glucose [Mass/Vol] 115 mg/dL High 74-99 [facility] Comment on above: Order Comment: Specimen Type: BLOOD SPEC IMEN [facility] Address: [address] [place] [address] Result Comment: The [place] [employer] (ADA) provides guidance for cutoff [...] Standards of Medical Care in Diabetes 2016, [place] [employer]. Diabetes Care. 2016.39(Suppl 1). Performed By: #### 2 284-8, 2730-8, 2132-02 #### [facility] CLIA [id number] [address] [place] [address] [place] Potassium [Moles/Vol] 4.3 mmol/L Normal 3.7-5.1 [facility] Comment on above: Order Comment: Specimen Type: BLOOD SPEC IMEN [facility] Address: [address] [place] [address] Performed By: #### 2 284-8, 2731-8, 9 #### [facility] CLIA [id number] [address] [place] [address] [place] Protein [Mass/Vol] 8.1 g/dL High 6.3-8.0 [facility] Comment on above: Order Comment: Specimen Type: BLOOD SPEC IMEN [facility] Address: [address] [place] [address] Performed By: #### 2 284-8, 2731-8, 9 #### [facility] CLIA [id number] [address] [place] [address] [place] Sodium [Moles/Vol] 137 mmol/L Normal 136-144 [facility] Comment on above: Order Comment: Specimen Type: BLOOD SPEC IMEN [facility] Address: [address] [place] [address] Performed By: #### 2 284-8, 273-8, 9 #### [facility] CLIA [id number] [address] [place] [address] [place] Urea nitrogen [Mass/Vol] 10 mg/dL Normal 7-21 [facility] Comment on above: Order Comment: Specimen Type: BLOOD SPEC IMEN [facility] Address: [address] [place] [address] Performed By: #### 2 284-8, 2731-8, 9 #### [facility] CLIA [id number] [address] [place] [address] [place] Nick 04-27-2023 KATTYN Telephone (BMIREJ) SUSI ORTIZ ([id number]) 1985 F FNS Date Time Provider Department 04/27/23 JOE GRANDAREJ During your visit today, we recorded the [...] of Date: 04/27/2023 Noted Allergy Reaction ADHES. [id number] 03/13/2015 2 - Rash ADHESIVE TAPE-SILICONES 05/06/2019 [...] Status:Closed by JOE GRANDA on 04/27/23 Normal [facility] Basic metabolic 2000 panelon 04-01-2023 Anion gap [Moles/Vol] 10 mmol/L Normal 9-18 [facility] Comment on above: Order Comment: Specimen Type: BLOOD SPEC IMENOrdering Facility: [facility] Address: [address] [address] Performed By: #### 2 4321-2 ####[facility]ORATORYCLIA [id number] [place] [address] [place] Calcium [Mass/Vol] 9.1 mg/dL Normal 8.5-10.2 [facility] Comment on above: Order Comment: Specimen Type: BLOOD SPEC IMENOrdering Facility: [facility] Address: [address] [address] Performed By: #### 2 4321-2 ####[facility] LABORATORYCLIA [id number] [place] [address] [place] Chloride [Moles/Vol] 102 mmol/L Normal 97-105 [facility] Comment on above: Order Comment: Specimen Type: BLOOD SPEC IMENOrdering Facility: [facility] Address: [address] [address] Performed By: #### 2 4321-2 ####[facility] LABORATORYCLIA [id number] [place] [address] [place] CO2 [Moles/Vol] 25 mmol/L Normal 22-30 [facility] Comment on above: Order Comment: Specimen Type: BLOOD SPEC IMENOrdering Facility: [facility] Address: [address] [address] Performed By: #### 2 4321-2 ####[facility]ORATORYCLIA [id number] [place] [address] [place] Creatinine [Mass/Vol] 0.59 mg/dL Normal 0.58-0.96 [facility] Comment on above: Order Comment: Specimen Type: BLOOD SPEC IMENOrdering Facility: [facility] Address: [address] [address] Performed By: #### 2 4321-2 ####[facility] LABORATORYCLIA [id number] [place] [address] [place] Creatinine and Glomerular filtration rate.predicted panel (S/P/Bld) 119 mL/min/1.73m??? Normal >=60 [facility] Comment on above: Order Comment: Specimen Type: BLOOD SPEC IMENOrdering Facility: [facility] Address: [address] [place] [address] Result Comment: Janet mated Glomerular Filtration Rate [...] actual GFR. Performed By: #### 2 4321-2 ####[facility] [id number] [place] [address] [place] Glucose [Mass/Vol] 130 mg/dL High 74-99 [facility] Comment on above: Order Comment: Specimen Type: BLOOD SPEC IMENOrdering Facility: [facility] Address: [address] [place] [address] Result Comment: The [place] Diabetes [employer] (ADA) provides guidance for cutoff [...] Standards of Medical Care in Diabetes 2016, [place] [employer]. Diabetes Care. 2016.39(Suppl 1). Performed By: #### 2 4321-2 ####[facility]ORY[facility] [id number] [place] [id number] [place] Potassium [Moles/Vol] 4.2 mmol/L Normal 3.7-5.1 [facility] Comment on above: Order Comment: Specimen Type: BLOOD SPEC IMENOrdering Facility: [facility] Address: [address] [address] Performed By: #### 2 4321-2 ####[facility] LABORATORYCLIA [id number] [place] [id number] [facility] Sodium [Moles/Vol] 137 mmol/L Normal 136-144 [facility] Comment on above: Order Comment: Specimen Type: BLOOD SPEC IMENOrdering Facility: [facility] Address: [address] [address] Performed By: #### 2 4321-2 ####[facility] LABORATORYCLIA [id number] [place] [id number] [place] Urea nitrogen [Mass/Vol] 5 mg/dL Low 7-21 [facility] Comment on above: Order Comment: Specimen Type: BLOOD SPEC IMENOrdering Facility: [facility] Address: [address] [address] Performed By: #### 2 4321-2 ####[facility] LABORATORYCLIA [id number] [address] [place] CBC panel Auto (Bld)on 04-01 Erythrocyte distribution width (RBC) [Ratio] 15.1 % High 11.5-15.0 [facility] Comment on above: Order Comment: Specimen Type: BLOOD SPEC IMENOrdering Facility: [facility] Address: [address] [address] Performed By: #### 5 8410-2 ####[facility] LABORATORYCLIA [id number] [place] [id number] [facility] Hematocrit (Bld) [Volume fraction] 39.2 % Normal 36.0-46.0 [facility] Comment on above: Order Comment: Specimen Type: BLOOD SPEC IMENOrdering Facility: [facility] Address: [address] [address] Performed By: #### 5 8410-2 ####[facility] LABORATORYCLIA [id number] [place] [id number] [place] Hemoglobin (Bld) [Mass/Vol] 12.7 g/dL Normal 11.5-15.5 [facility] Comment on above: Order Comment: Specimen Type: BLOOD SPEC IMENOrdering Facility: [facility] Address: [address] [address] Performed By: #### 5 8410-2 ####[facility]ATORYCLIA [id number] [address] [place] [facility] MCH (RBC) [Entitic mass] 29.3 pg Normal 26.0-34.0 [facility] Comment on above: Order Comment: Specimen Type: BLOOD SPEC IMENOrdering Facility: [facility] Address: [address] [address] Performed By: #### 5 8410-2 ####[facility]ATORYCLIA [id number] [address] [place] [facility] MCHC (RBC) [Mass/Vol] 32.4 g/dL Normal 30.5-36.0 [facility] Comment on above: Order Comment: Specimen Type: BLOOD SPEC IMENOrdering Facility: [facility] Address: [address] [address] Performed By: #### 5 8410-2 ####[facility] LABORATORYCLIA [id number] [address] [place] MCV (RBC) [Entitic vol] 90.3 fL Normal 80.0-100.0 [facility] Comment on above: Order Comment: Specimen Type: BLOOD SPEC IMENOrdering Facility: [facility] Address: [address] [address] Performed By: #### 5 8410-2 ####[facility]ATORYCLIA [id number] [address] [place] Nucleated RBC (Bld) [#/Vol] 10*3/uL Normal <0.01 [facility] Comment on above: Order Comment: Specimen Type: BLOOD SPEC IMENOrdering Facility: [facility] Address: [address] [address] Performed By: #### 5 8410-2 ####[facility]ORYCLIA [id number] [place] [address] [place] Platelet mean volume (Bld) [Entitic vol] 9.7 fL Normal 9.0-12.7 [facility] Comment on above: Order Comment: Specimen Type: BLOOD SPEC IMENOrdering Facility: [facility] Address: [address] [place] [address] Performed By: #### 5 8410-2 ####[facility]ORYCLIA [id number] [place] [address] [place] Platelets (Bld) [#/Vol] 463 10*3/uL High 150-400 [facility] Comment on above: Order Comment: Specimen Type: BLOOD SPEC IMENOrdering Facility: [facility] Address: [address] [place] [address] Performed By: #### 5 8410-2 ####[facility]ORYCLIA [id number] [place] [address] [place] RBC (Bld) [#/Vol] 4.34 10*6/uL Normal 3.90-5.20 [facility] Comment on above: Order Comment: Specimen Type: BLOOD SPEC IMENOrdering Facility: [facility] Address: [address] [place] [address] Performed By: #### 5 8410-2 ####[facility]ORYCLIA [id number] [place] [address] [place] WBC (Bld) [#/Vol] 15.94 10*3/uL High 3.70-11.00 [facility] Comment on above: Order Comment: Specimen Type: BLOOD SPEC IMENOrdering Facility: [facility] Address: [address] [place] [address] Performed By: #### 5 8410-2 ####[facility]ATORYCLIA [id number] [place] [id number] [facility] [place] NURSING PROGon 04-01-2023 NURSING PROG HNO ID: [id number] Author: Susi Ruffin RN Service: Nursing Author Type: Registered Nurse Type: Nursing Progress Note Filed: 04/01/2023 4:52 PM Note Text: Daily Note 1645 Pt discharged in stable condition and all of belongings left with pt. Discussed discharge paperwork, follow-up appointments, and clarified questions. IV removed and transport called to wheel pt out. [facility] NURSING PROG HNO ID: [id number] Author: Hina Monet RN Service: ? Author Type: Registered Nurse Type: Nursing Progress Note Filed: 04/01/2023 3:24 AM Note Text: Pt tolerating clears. Given oxycodone twice tonight for abd pain. States passing flatus. up to BR with standby assist. Steady, stable. [facility] PT EDon 04-01-2023 PT ED HNO ID: [id number] Author: Tasneem Good RD Service: NST-Nutrition Support [...] minutes SIGNATURE: Tasneem Good RD PATIENT NAME: Suis Borjahip DATE: April 01, 2023 TIME: 12:23 PM PAGER: [facility] ANES POSTPROC EVALon 023 ANES POSTPROC EVAL HNO ID: [id number] Author: Darrel Conklin MD Service: Anesthesiology Author Type: Anesthesiologist Type: Anesthesia Postprocedure Evaluation Filed: 03/31/2023 2:40 PM Note Text: POST ANESTHESIA EVALUATION NOTE : 1985 Procedure Summary Date: 03/31/23 Room / Location: [facility] OR06 / [facility] OR Anesthesia Start: 1023 [...] SIGNATURE: Darrel Conklin MD PATIENT NAME: Susi Jeanenship DATE: March 31, 2023 TIME: 2:40 PM CSN: [id number] [facility] ANES PRE-OPon 03-31-2023 ANES PRE-OP HNO ID: [id number] Author: Darrel Conklin MD Service: Anesthesiology Author Type: Anesthesiologist Type: Anesthesia Preprocedure Evaluation Filed: 03/31/2023 9:13 AM Note Text: ANESTHESIOLOGY DAY OF SURGERY NOTE : 1985 Procedure Information Date/Time: 03/31/23929 Procedure: LAPAROSCOPY SURGICAL GASTRIC RESTRICTIVE PROCEDURE BILIOPANCREATIC DIVERSION WITH DUODENAL SWITCH (Abdomen) Location: [facility]06 / [facility] OR Surgeons: Joe Granda MD Estimated body [...] and consent discussed: yes. Patient / Responsible Republican agrees to proceed: yes Patient / Surrogate [...] none. Vitals Value Taken Time BP 127/76 03/31/23 0858 Pulse 83 03/31/23 0858 Resp 18 03/31/2358 Temp 36.4 ?C (97.5 ?F) 03/31/23 08 SpO2 97 % 03/31/23 0858 Facility-Administered Medications as of 03/31/2023 Medication Dose [...] SIGNATURE: Darrel Conklin MD PATIENT NAME: Susi Jeanenship DATE: March 31, 2023 TIME: 9:13 AM CSN: [id number] [facility] BRIEF OP NOTon 03-31-2023 BRIEF OP NOT HNO ID: [id number] Author: Joe Abraham MD Service: General Surgery Author Type: Resident Type: Brief Op Note Filed: 03/31/2023 12:53 PM Note Text: Attestation signed by Joe Granda MD at 03/31/2023 2:33 PM [id number] Joe Granda MD GENERAL SURGERY BRIEF OP NOTE LOG ID: [id number] Surgery/Procedure Date: 03/31/2023 Incision/Procedure Start Time: 11:11 AM Incision Close/Procedure End Time: 12:52 PM Surgeon(s) and Academic Director(s): Surgeon(s) and Role: * Joe Granda MD [...] 31, 2023 TIME: 12:52 PM PAGER/CONTACT #: [phone] [facility] NURSING PROGon 03-31-2023 NURSING PROG HNO ID: [id number] Author: Susi Ruffin RN Service: Nursing Author Type: Registered Nurse Type: Nursing Progress Note Filed: 03/31/2023 5:08 PM Note Text: Transfer Note: PATIENT NAME: Susi Ortiz Patient Location: [place] [address] [address] Room: [place] [address] Patient transferred in stable condition. Actions taken: Report given/called to [facility]. Orders signed and held were transferred over. [facility] NURSING PROG HNO ID: [id number] Author: Cathleen Hubbard RN Service: Nursing Author Type: Registered Nurse Type: Nursing Progress Note Filed: 03/31/2023 8:48 AM Note Text: PATIENT EDUCATION TOPIC: PROCEDURE / SURGERY: Pre-op Teaching: Logistics Protocols PATIENT NAME: Susi Ortiz PATIENT LOCATION: [facility] OR POOL/[place] OR POOL READINESS TO LEARN COGNITIVE ABILITY: [...] REFERRAL (RECOMMENDATION): None Electronically Signed By: Cathleen Schumacher [facility] OPERATIVE NOon 03-31-2023 OPERATIVE NO HNO ID: [id number] Author: Joe Granda MD Service: General Surgery Author Type: Physician Type: Operative Report Filed: 04/09/2023 3:22 PM Note Text: [facility] - Operative Report SUSI ORTIZ : 1985 AGE: 37. SEX: F PATIENT TYPE: I HOSP SVC: Surgical LOCATION: [facility] ATTENDING PHYSICIAN: Joe Granda M.D. CSN NUMBER: [id number] DATE OF SURGERY/PROCEDURE: 03/31/2023 INCISION/PROCEDURE START TIME: [...] of sleeve leak. SURGEON: Joe Granda M.D. SECURITY REPRESENTATIVE: Joe Abraham. SURGERY/PROCEDURE: Laparoscopic enterolysis. ANESTHESIA: General [...] Monocryl an (more content not included)... Normal [facility] [id number] 03-10-2023 ECG01 Ventricular Rate : 7 5 BPM Atrial Rate : 75 BPM P-R Interval : 172 ms QRS Duration : 96 ms Q-T Interval : 390 ms QTC Calculation(Bazett) : 435 ms Calculated P [place] : 22 degrees Calculated R [place] : 25 degrees Calculated T [place] : 27 degrees NORMAL SINUS RHYTHM NORMAL ECG Confirmed by Penelope Fowler M.D. ([id number]) on 03/13/2023 4:51:16 PM NAME : SUSI ORTIZ PID : [id number] : 1985 Gender : Female Race : [...] By : JOE GRANDA Acquired by : am, Winsome [facility] HISTORY PHYSICALon 3 HISTORY PHYSICAL HNO ID: [id number] Author: Shruti Alvarado APRN.KATTY Service: ? Author Type: Nurse Practitioner [...] medication comments found. ALLERGIES Allergen Reactions Adhes. Nkio-Herx-Oa* Rash Adhesive Tape-Silic* Rash Augmentin [Amoxicil* Diarrhea Keflex [Cephalexin] Rash, Itching Penicillins Hives Ultram [Tramadol Hc* Itching COVID VACCINATION STATUS: Fully vaccinated REVIEW OF SYSTEMS: PAIN ASSESSMENT: General: No weight loss, malaise or fevers. Neuro: No history of TIA's, stroke, [employer] tumor, impaired sensorium, hemiplegia, paraplegia or quadraplegia. No neurological symptoms or problems. Positive for Migraines on Inderal Respiratory: Positive for TONEY non compliant with CPAP , Negative for No history of current cough or dyspnea, or pneumonia in the past 6 weeks. No history of respiratory/pulmonary symptoms or problems Cardiovascular: No history of HTN requiring medication, n (more content not included)... Normal [facility] CBC W Auto Differential pane l (Bld)on 01-23-2023 Anisocytosis Ql (Bld) Present Normal [facility] Comment on above: Order Comment: Specimen Type: BLOOD SPEC IMEN Ordering Facility: [facility] Address: [address] [place] [address] Performed By: #### 2 284-8, 2730-8, 2132-02 #### [facility] CLIA [id number] [address] [place] [address] [place] Basophils (Bld) [#/Vol] 0.14 10*3/uL High <0.11 [facility] Comment on above: Order Comment: Specimen Type: BLOOD SPEC IMEN Ordering Facility: [facility] Address: [address] [place] [address] Performed By: #### 2 284-8, 2731-01, 2132-02 #### [facility] CLIA [id number] [address] [place] [address] [place] Basophils/100 WBC (Bld) 1.0 % Normal [facility] Comment on above: Order Comment: Specimen Type: BLOOD SPEC IMEN Ordering Facility: [facility] Address: [address] [place] [address] Performed By: #### 2 284-8, 8, 2132-02 #### [facility] CLIA [id number] [address] [place] [address] [place] Differential cell count method Nom (Bld) Manual Normal [facility] Comment on above: Order Comment: Specimen Type: BLOOD SPEC IMEN Ordering Facility: [facility] Address: [address] [place] [address] Performed By: #### 2 284-8, 2730-8, 2132-02 #### [facility] CLIA [id number] [address] [place] [address] [place] Eosinophils (Bld) [#/Vol] 0.41 10*3/uL Normal <0.46 [facility] Comment on above: Order Comment: Specimen Type: BLOOD SPEC IMEN Ordering Facility: [facility] Address: [address] [place] [address] Performed By: #### 2 284-8, 8, 2132-02 #### [facility] CLIA [id number] [address] [place] [address] [place] Eosinophils/100 WBC (Bld) 3.0 % Normal [facility] Comment on above: Order Comment: Specimen Type: BLOOD SPEC IMEN Ordering Facility: [facility] Address: [address] [place] [address] Performed By: #### 2 284-8, 2731-01, 2132-02 #### [facility] CLIA [id number] [address] [place] [address] [place] Erythrocyte distribution width (RBC) [Ratio] 15.2 % High 11.5-15.0 [facility] Comment on above: Order Comment: Specimen Type: BLOOD SPEC IMEN Ordering Facility: [facility] Address: [address] [place] [address] Performed By: #### 2 284-8, 2731-01, 2132-02 #### [facility] CLIA [id number] [address] [place] [address] [place] Hematocrit (Bld) [Volume fraction] 46.2 % High 36.0-46.0 [facility] Comment on above: Order Comment: Specimen Type: BLOOD SPEC IMEN Ordering Facility: [facility] Address: [address] [place] [address] Performed By: #### 2 284-8, 8, 2132-02 #### [facility] CLIA [id number] [address] [place] [address] [place] Hemoglobin (Bld) [Mass/Vol] 14.5 g/dL Normal 11.5-15.5 [facility] Comment on above: Order Comment: Specimen Type: BLOOD SPEC IMEN Ordering Facility: [facility] Address: [address] [place] [address] Performed By: #### 2 284-8, 8, 2132-02 #### [facility] CLIA [id number] [address] [place] [address] [place] Lymphocytes (Bld) [#/Vol] 5.61 10*3/uL High 1.00-4.00 [facility] Comment on above: Order Comment: Specimen Type: BLOOD SPEC IMEN Ordering Facility: [facility] Address: [address] [place] [address] Performed By: #### 2 284-8, 8, 2132-02 #### [facility] CLIA [id number] [address] [place] [address] [place] Lymphocytes/100 WBC (Bld) 41.0 % Normal [facility] Comment on above: Order Comment: Specimen Type: BLOOD SPEC IMEN Ordering Facility: [facility] Address: [address] [place] [address] Performed By: #### 2 284-8, 8, 2132-02 #### [facility] CLIA [id number] [address] [place] [address] [place] MCH (RBC) [Entitic mass] 28.2 pg Normal 26.0-34.0 [facility] Comment on above: Order Comment: Specimen Type: BLOOD SPEC IMEN Ordering Facility: [facility] Address: [address] [place] [address] Performed By: #### 2 284-8, 8, 2132-02 #### [facility] CLIA [id number] [address] [place] [address] [place] MCHC (RBC) [Mass/Vol] 31.4 g/dL Normal 30.5-36.0 [facility] Comment on above: Order Comment: Specimen Type: BLOOD SPEC IMEN Ordering Facility: [facility] Address: [address] [place] [address] Performed By: #### 2 284-8, 8, 2132-02 #### [facility] CLIA [id number] [address] [place] [address] [place] MCV (RBC) [Entitic vol] 89.9 fL Normal 80.0-100.0 [facility] Comment on above: Order Comment: Specimen Type: BLOOD SPEC IMEN Ordering Facility: [facility] Address: [address] [place] [address] Performed By: #### 2 284-8, 8, 2132-02 #### [facility] CLIA [id number] [address] [place] [address] [place] Monocytes (Bld) [#/Vol] 0.68 10*3/uL Normal <0.87 [facility] Comment on above: Order Comment: Specimen Type: BLOOD SPEC IMEN Ordering Facility: [facility] Address: [address] [place] [address] Performed By: #### 2 284-8, 8, 2132-02 #### [facility] CLIA [id number] [address] [place] [address] [place] Monocytes/100 WBC (Bld) 5.0 % Normal [facility] Comment on above: Order Comment: Specimen Type: BLOOD SPEC IMEN Ordering Facility: [facility] Address: [address] [place] [address] Performed By: #### 2 284-8, 8, 2132-02 #### [facility] CLIA [id number] [address] [place] [address] [place] Neutrophils (Bld) [#/Vol] 6.84 10*3/uL Normal 1.45-7.50 [facility] Comment on above: Order Comment: Specimen Type: BLOOD SPEC IMEN Ordering Facility: [facility] Address: [address] [place] [address] Performed By: #### 2 284-8, 2731-8, 2132-02 #### [facility] CLIA [id number] [address] [place] [address] [place] Neutrophils/100 WBC (Bld) 50.0 % Normal [facility] Comment on above: Order Comment: Specimen Type: BLOOD SPEC IMEN Ordering Facility: [facility] Address: [address] [place] [address] Performed By: #### 2 284-8, 273-8, 2132-02 #### [facility] CLIA [id number] [address] [place] [address] [place] Nucleated RBC (Bld) [#/Vol] 10*3/uL Normal <0.01 [facility] Comment on above: Order Comment: Specimen Type: BLOOD SPEC IMEN Ordering Facility: [facility] Address: [address] [place] [address] Performed By: #### 2 284-8, 2730-8, 2132-02 #### [facility] CLIA [id number] [address] [place] [address] [place] Nucleated RBC/100 WBC (Bld) [Ratio] 0.0 /100 WBC Normal [facility] Comment on above: Order Comment: Specimen Type: BLOOD SPEC IMEN Ordering Facility: [facility] Address: [address] [place] [address] Performed By: #### 2 284-8, 273-8, 2132-02 #### [facility] CLIA [id number] [address] [place] [address] [place] Platelet mean volume (Bld) [Entitic vol] 10.1 fL Normal 9.0-12.7 [facility] Comment on above: Order Comment: Specimen Type: BLOOD SPEC IMEN Ordering Facility: [facility] Address: [address] [place] [address] Performed By: #### 2 284-8, 2730-8, 2132-02 #### [facility] CLIA [id number] [address] [place] [address] [place] Platelets (Bld) [#/Vol] 624 10*3/uL High 150-400 [facility] Comment on above: Order Comment: Specimen Type: BLOOD SPEC IMEN Ordering Facility: [facility] Address: [address] [place] [address] Performed By: #### 2 284-8, 8, 2132-02 #### [facility] CLIA [id number] [address] [place] [address] [place] Platelets Estimate (Bld) [#/Vol] Increased Normal [facility] Comment on above: Order Comment: Specimen Type: BLOOD SPEC IMEN Ordering Facility: [facility] Address: [address] [place] [address] Performed By: #### 2 284-8, 8, 2132-02 #### [facility] CLIA [id number] [address] [place] [address] [place] RBC (Bld) [#/Vol] 5.14 10*6/uL Normal 3.90-5.20 [facility] Comment on above: Order Comment: Specimen Type: BLOOD SPEC IMEN Ordering Facility: [facility] Address: [address] [place] [address] Performed By: #### 2 284-8, 8, 2132-02 #### [facility] CLIA [id number] [address] [place] [address] [place] RED CELL MORPH Reviewed: see result s of individual morphologies Normal [facility] Comment on above: Order Comment: Specimen Type: BLOOD SPEC IMEN Ordering Facility: [facility] Address: [address] [place] [address] Performed By: #### 2 284-8, 8, 2132-02 #### [facility] CLIA [id number] [address] [place] [address] [place] WBC (Bld) [#/Vol] 13.68 10*3/uL High 3.70-11.00 [facility] Comment on above: Order Comment: Specimen Type: BLOOD SPEC IMEN Ordering Facility: [facility] Address: [address] [place] [address] Performed By: #### 2 284-8, 273-8, 2132-02 #### [facility] CLIA [id number] [address] [place] [address] [place] Comprehensive metabolic 2000 panelon 01-23-2023 Albumin [Mass/Vol] 3.9 g/dL Normal 3.9-4.9 [facility] Comment on above: Order Comment: Specimen Type: BLOOD SPEC IMEN Ordering Facility: [facility] Address: [address] [place] [address] Performed By: #### 2 284-8, 2730-8, 2132-02 #### [facility] CLIA [id number] [address] [place] [address] [place] ALP [Catalytic activity/Vol] 101 U/L Normal 34-123 [facility] Comment on above: Order Comment: Specimen Type: BLOOD SPEC IMEN Ordering Facility: [facility] Address: [address] [place] [address] Performed By: #### 2 284-8, 2730-8, 2132-02 #### [facility] CLIA [id number] [address] [place], [place] [id number] [place] ALT [Catalytic activity/Vol] 17 U/L Normal 7-38 [facility] Comment on above: Order Comment: Specimen Type: BLOOD SPEC IMEN Ordering Facility: [facility] Address: [address] [place] [address] Performed By: #### 2 284-8, 2731-8, 9 #### [facility] CLIA [id number] [address] [place] [address] [place] Anion gap [Moles/Vol] 16 mmol/L Normal 9-18 [facility] Comment on above: Order Comment: Specimen Type: BLOOD SPEC IMEN Ordering Facility: [facility] Address: [address] [place] [address] Performed By: #### 2 284-8, 2731-8, 2132-02 #### [facility] CLIA [id number] [address] [place] [address] [place] AST [Catalytic activity/Vol] 33 U/L Normal 13-35 [facility] Comment on above: Order Comment: Specimen Type: BLOOD SPEC IMEN Ordering Facility: [facility] Address: [address] [place] [address] Performed By: #### 2 284-8, 273-8, 2132-02 #### [facility] CLIA [id number] [address] [place] [address] [place] Bilirubin [Mass/Vol] 0.2 mg/dL Normal 0.2-1.3 [facility] Comment on above: Order Comment: Specimen Type: BLOOD SPEC IMEN Ordering Facility: [facility] Address: [address] [place] [address] Performed By: #### 2 284-8, 273-8, 2132-02 #### [facility] CLIA [id number] [address] [place] [address] [place] Calcium [Mass/Vol] 10.2 mg/dL Normal 8.5-10.2 [facility] Comment on above: Order Comment: Specimen Type: BLOOD SPEC IMEN Ordering Facility: [facility] Address: [address] [place] [address] Performed By: #### 2 284-8, 2731-8, 2132-02 #### [facility] CLIA [id number] [address] [place] [address] [place] Chloride [Moles/Vol] 100 mmol/L Normal 97-105 [facility] Comment on above: Order Comment: Specimen Type: BLOOD SPEC IMEN Ordering Facility: [facility] Address: [address] [place] [address] Performed By: #### 2 284-8, 8, 2132-02 #### [facility] CLIA [id number] [address] [place] [address] [place] CO2 [Moles/Vol] 19 mmol/L Low 22-30 [facility] Comment on above: Order Comment: Specimen Type: BLOOD SPEC IMEN Ordering Facility: [facility] Address: [address] [place] [address] Performed By: #### 2 284-8, 8, 2132-02 #### [facility] CLIA [id number] [address] [place] [address] [place] Creatinine [Mass/Vol] 0.64 mg/dL Normal 0.58-0.96 [facility] Comment on above: Order Comment: Specimen Type: BLOOD SPEC IMEN Ordering Facility: [facility] Address: [address] [place] [address] Performed By: #### 2 284-8, 8, 2132-02 #### [facility] CLIA [id number] [address] [place] [address] [place] ESTIMATED GLOMERULAR FILTRATION RATE 117 mL/min/1.73m??? Normal >=60 [facility] Comment on above: Order Comment: Specimen Type: BLOOD SPEC IMEN Ordering Facility: [facility] Address: [address] [place] [address] Result Comment: Janet mated Glomerular Filtration Rate [...] reflect actual GFR. Performed By: #### 2 284-8, 8, 2132-02 #### [facility] CLIA [id number] [address] [place] [address] [place] Glucose [Mass/Vol] 73 mg/dL Low 74-99 [facility] Comment on above: Order Comment: Specimen Type: BLOOD SPEC IMEN Ordering Facility: [facility] Address: [address] [place] [address] Result Comment: The [place] Diabetes Association (ADA) provides guidance for cutoff [...] Standards of Medical Care in Diabetes 2016, [place] [employer] Association. Diabetes Care. 2016.39(Suppl 1). Performed By: #### 2 284-8, 2731-01, 2132-02 #### [facility] CLIA [id number] [address] [place] [address] [place] Potassium [Moles/Vol] 4.5 mmol/L Normal 3.7-5.1 [facility] Comment on above: Order Comment: Specimen Type: BLOOD SPEC IMEN Ordering Facility: [facility] Address: [address] [place] [address] Performed By: #### 2 284-8, 8, 2132-02 #### [facility] CLIA [id number] [address] [place] [address] [place] Protein [Mass/Vol] 7.8 g/dL Normal 6.3-8.0 [facility] Comment on above: Order Comment: Specimen Type: BLOOD SPEC IMEN Ordering Facility: [facility] Address: [address] [place] [address] Performed By: #### 2 284-8, 2731-8, 9 #### [facility] CLIA [id number] [address] [place] [address] [place] Sodium [Moles/Vol] 135 mmol/L Low 136-144 [facility] Comment on above: Order Comment: Specimen Type: BLOOD SPEC IMEN Ordering Facility: [facility] Address: [address] [place] [address] Performed By: #### 2 284-8, 2731-8, 9 #### [facility] CLIA [id number] [address] [place] [address] [place] Urea nitrogen [Mass/Vol] 7 mg/dL Normal 7-21 [facility] Comment on above: Order Comment: Specimen Type: BLOOD SPEC IMEN Ordering Facility: [facility] Address: [address] [place] [address] Performed By: #### 2 284-8, 2731-8, 9 #### [facility] CLIA [id number] [address] [place] [address] [place] CNPShanon 01-05-2023 CNPN Telephone (BMIEVERTJ) SUSI ORTIZ ([id number]) 1985 F Date Time Provider Department 01/05/23 [...] 03 2023. Surgical episode request sent to [facility] surgery scheduling. 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 Creatinine level 0.81 Patient instructed to start pre-op 800 calorie total protein liquid diet daily beginning 2 weeks prior to surgery. - Stop all ASA and NSAID products, [place] 3 fish oil, herbal products such as [...] Pt instructed to fax FMLA forms to [phone] and allow 7-10 days for completion. - [...] of Date: 01/05/2023 Noted Allergy Reaction ADHES. [id number] 03/13/2015 2 - Rash ADHESIVE TAPE-SILICONES 05/06/2019 [...] disorder (HCC) (more content not included)... Normal [facility] XR ankle LT min 3V*on 2022 XR ankle LT min 3V* [facility] [employer] Other XR ankle LT min 3V* [facility] [employer] Other XR ankle LT min 3V* [address] [place] [address] [employer] Other XR ankle LT min 3V* [place] [address] [employer] Other XR ankle LT min 3V* XRay Report [employer] Other XR ankle LT min 3V* Signed [employer] Other XR ankle LT min 3V* Patient: Susi Ortiz MR#: M [employer] Other XR ankle LT min 3V* [id number] [employer] Other XR ankle LT min 3V* : 1985 Acct:[id number] [employer] Other XR ankle LT min 3V* Age/Sex: 37 / F ADM Date: 12/13/22 [employer] Other XR ankle LT min 3V* Loc: XDUCLY Room: Type: [facility] [employer] Other XR ankle LT min 3V* Attending Dr: Linda South [facility] [employer] Other XR ankle LT min 3V* Copies to: Linda South [facility] [employer] Other XR ankle LT min 3V* Ordering Provider: Linda South APRN [employer] Other XR ankle LT min 3V* Date of Service: 12/13/22 [employer] Other XR ankle LT min 3V* XR/XR ankle LT min 3V*: Acute left ankle pain [employer] Other XR ankle LT min 3V* LEFT ANKLE - 3 views [employer] Other XR ankle LT min 3V* CLINICAL DATA: Patient felt a pop at the ankle while walking this morning. Lateral pain and Index [facility] [employer] Other XR ankle LT min 3V* swelling. [employer] Other XR ankle LT min 3V* COMPARISON: LEFT FOOT 11/13/2021 [employer] Other XR ankle LT min 3V* AP, lateral and oblique views were obtained. There is no evidence of fracture or dislocation. [employer] Other XR ankle LT min 3V* The talar dome is intact. Posterior and plantar calcaneal spurs are visualized. There is diffuse [employer] Other XR ankle LT min 3V* soft tissue prominence related to body habitus. [employer] Other XR ankle LT min 3V* XR/XR ankle LT min 3V* [employer] Other XR ankle LT min 3V* IMPRESSION: [employer] Other XR ankle LT min 3V* NO ACUTE BONY FINDINGS. [employer] Other XR ankle LT min 3V* Impression dictated by: Diana Rojas M.D.12/13/2022 10:38 AM [employer] Other XR ankle LT min 3V* Dictation Location: [place] [address] [employer] Other XR ankle LT min 3V* Transcribed By: GENO 12/13/22 1038 [employer] Other XR ankle LT min 3V* Dictated By: Diana Rojas MD 12/13/22 1036 [facility] [employer] Other XR ankle LT min 3V* Signed By: [employer] Other XR ankle LT min 3V* 12/13/22 3753 [employer] Other XR ankle LT min 3V* [facility] [place] [address] [place] [address] XRay Report Signed Patient: Susi Ortiz MR#: [id number] : 1985 Acct:[id number] Age/Sex: 37 / F ADM Date: 12/13/22 Loc: XDUC Room: Type: [facility] Attending Dr: Linda South APRN Copies to: [...] Diana Rojas M.D.12/13/2022 10:38 AM Dictation Location: [place] [address] Transcribed By: GENO 12/13/22 1038 Dictated By: Diana Rojas MD 12/13/22 1036 Signed By: 12/13/22 [address] [facility] [address] HEAD WO CONon 08-19-2022 CT HEAD [...] MANPREET TORRES Date: 2022-08-19 18:23 Normal [facility] VITAMIN B1 (THIAMINE)on 03-29 Vit. B1, Whole Blood 113.1 nmol/L Normal 66.5-200.0 [facility] Comment on above: Performed By: #### FETIBC, VITAD, B12FOL #### [facility] [address] [address] [address] Gentry Harmon XR foot RT min 3V*on 022 XR foot RT min 3V* [facility] Main [place] [address] [place] [address] XRay Report Signed Patient: Susi Ortiz MR#: Inna [id number] : 1985 Acct:[id number] Age/Sex: 36 / F ADM Date: 04/16/22 Loc: XDUCLY Room: Type: [facility] Attending Dr: Christa JONES Copies to: ROBERT [...] Gt Ventura M.D.04/16/2022 7:09 PM Dictation Location: [place] [address] Transcribed By: [facility] 04/16/221908 Dictated By: Gt Ventura II, MD 04/16/221903 Signed By: 04/16/221908 [facility] XR foot RT min 3V* [facility] [employer] Other XR foot RT min 3V* [facility] Main [place] [employer] Other XR foot RT min 3V* [address] [place] [address] [employer] Other XR foot RT min 3V* [place] [address] [employer] Other XR foot RT min 3V* XRay Report [employer] Other XR foot RT min 3V* Signed [employer] Other XR foot RT min 3V* Patient: Susi Ortiz MR#: M [employer] Other XR foot RT min 3V* [id number] [employer] Other XR foot RT min 3V* : 1985 Acct:[id number] [employer] Other XR foot RT min 3V* Age/Sex: 36 / F ADM Date: 04/16/22 [employer] Other XR foot RT min 3V* Loc: XDUCLY Room: Type: REG CLI [employer] Other XR foot RT min 3V* Attending Dr: Christa COCHRAN [employer] Other XR foot RT min 3V* Copies to: ROBERT Feliciano [employer] Other XR foot RT min 3V* Ordering Provider: ROBERT Feliciano [employer] Other XR foot RT min 3V* Date of Service: 04/16/22 [employer] Other XR foot RT min 3V* XR/XR foot RT min 3V*: Right foot pain [employer] Other XR foot RT min 3V* XR foot RT min 3V* 04/16/2022 6:45 PM [employer] Other XR foot RT min 3V* SIGNS AND SYMPTOMS: Popping sensation in right foot [employer] Other XR foot RT min 3V* PROTOCOL: Frontal, lateral, and oblique radiographs of the right [employer] Other XR foot RT min 3V* COMPARISON: 11/04/2018 [employer] Other XR foot RT min 3V* FINDINGS: [employer] Other XR foot RT min 3V* The bones are in anatomic alignment. Degenerative changes without evidence of fracture or [facility] [employer] Other XR foot RT min 3V* dislocation. There is diffuse soft tissue swelling. There is plantar and Achilles surface calc [employer] Other XR foot RT min 3V* aneal spurring. Degenerative changes are noted in the talonavicular joint. [employer] Other XR foot RT min 3V* XR/XR foot RT min 3V* [employer] Other XR foot RT min 3V* IMPRESSION: [employer] Other XR foot RT min 3V* No fracture. [employer] Other XR foot RT min 3V* There is diffuse soft tissue swelling which is new. [employer] Other XR foot RT min 3V* Mild degenerative changes are noted at the talonavicular junction with spurring at the plantar and [employer] Other XR foot RT min 3V* Achilles surface of the calcaneus. [employer] Other XR foot RT min 3V* Impression dictated by: Gt Ventura M.D.04/16/2022 7:09 PM [employer] Other XR foot RT min 3V* Dictation Location: [place] [address] [employer] Other XR foot RT min 3V* Transcribed By: PWS 04/16/221908 [employer] Other XR foot RT min 3V* Dictated By: Gt Ventura II, MD 04/16/221903 [employer] Other XR foot RT min 3V* Signed By: [employer] Other XR foot RT min 3V* 04/16/221908 [employer] Other CBC AUTO DIFFon 04-11-2022 BASO # 0.1 103/ul Normal 0.0-0.1 [facility] Comment on above: Performed By: #### MAI CASTILLO, B12FOL #### [facility] [address] [address] [address] Gentry Harmon Basophils/100 WBC (Bld) 0.5 % Normal 0.2-2.0 [facility] Comment on above: Performed By: #### FETIBC, VITAD, B12FOL #### [facility] [address] [place] [address] Dr. Gentry Harmon EO # 0.2 103/ul Normal 0.0-0.7 [facility] Comment on above: Performed By: #### FETIBC, VITAD, B12FOL #### [facility] [address] [place] [address] Dr. Gentry Harmon Eosinophils/100 WBC (Bld) 0.9 % Normal 0.9-7.0 [facility] Comment on above: Performed By: #### FETIBC, VITAD, B12FOL #### [facility] [address] [place] [address] Dr. Gentry Harmon Erythrocyte distribution width (RBC) [Ratio] 14.3 % Normal 11.0-15.0 [facility] Comment on above: Performed By: #### FETIBC, VITAD, B12FOL #### [facility] [address] [place] [address] Dr. Gentry Harmon Hematocrit (Bld) [Volume fraction] 41.9 % Normal 36.0-48.0 [facility] Comment on above: Performed By: #### FETIBC, VITAD, B12FOL #### [facility] [address] [place] [address] Dr. Gentry Harmon Hemoglobin (Bld) [Mass/Vol] 13.4 g/dL Normal 12.0-16.0 [facility] Comment on above: Performed By: #### FETIBC, VITAD, B12FOL #### [facility] [address] [place] [address] Dr. Gentry Harmon IG # 0.06 10e3/ul Critically high 0.00-0.03 [facility] Comment on above: Performed By: #### FETIBC, VITAD, B12FOL #### [facility] [address] [place] [address] Dr. Gentry Harmon IG % 0.3 % Normal 0.0-0.5 [facility] Comment on above: Performed By: #### FETIBC, VITAD, B12FOL #### [facility] [address] [place] [address] Dr. Gentry Harmon LYMPH # 5.9 103/ul Critically high 1.2-3.8 [facility] Comment on above: Performed By: #### FETIBC, VITAD, B12FOL #### [facility] [address] [place] [address] Dr. Gentry Harmon Lymphocytes/100 WBC (Bld) 34.0 % Normal 20.5-60.0 [facility] Comment on above: Performed By: #### FETIBC, VITAD, B12FOL #### [facility] [address] [place] [address] Dr. Gentry Harmon MANUAL DIFF REQ NO Normal [facility] Comment on above: Performed By: #### FETIBC, VITAD, B12FOL #### [facility] [address] [place] [address] Dr. Gentry Harmon MCH (RBC) [Entitic mass] 28.9 pg Normal 26.7-34.0 [facility] Comment on above: Performed By: #### FETIBC, VITAD, B12FOL #### [facility] [address] [place] [address] Dr. Gentry Harmon MCHC (RBC) [Mass/Vol] 32.0 g/dL Normal 29.9-35.2 [facility] Comment on above: Performed By: #### FETIBC, VITAD, B12FOL #### [facility] [address] [place] [address] Dr. Gentry Harmon MCV (RBC) [Entitic vol] 90.3 fL Normal 81.0-99.0 [facility] Comment on above: Performed By: #### FETIBC, VITAD, B12FOL #### [facility] [address] [place] [address] Dr. Gentry Harmon MONO # 1.3 103/ul Critically high 0.3-0.8 [facility] Comment on above: Performed By: #### FETIBC, VITAD, B12FOL #### [facility] [address] [place] [address] Dr. Gentry Harmon Monocytes/100 WBC (Bld) 7.8 % Normal 1.7-12.0 [facility] Comment on above: Performed By: #### FETIBC, VITAD, B12FOL #### [facility] [address] [address] [address] Gentry Harmon NEUT # 9.8 103/ul Critically high 1.4-6.5 [facility] Comment on above: Performed By: #### FETIBC, VITAD, B12FOL #### [facility] [address] [address] [address] Gentry Harmon Neutrophils/100 WBC (Bld) 56.5 % Normal 43.0-75.0 [facility] Comment on above: Performed By: #### FETIBC, VITAD, B12FOL #### [facility] [address] [place] [address] Dr. Gentry Harmon Platelet mean volume (Bld) [Entitic vol] 9.3 fL Critically low 9.5-13.5 [facility] Comment on above: Performed By: #### FETIBC, VITAD, B12FOL #### [facility] [address] [address] [address] Gentry Harmon PLT 522 103/ul Critically high 150-450 [facility] Comment on above: Performed By: #### FETIBC, VITAD, B12FOL #### [facility] [address] [place] [address] Dr. Gentry Harmon RBC 4.64 106/ul Normal 4.20-5.40 [facility] Comment on above: Performed By: #### FETIBC, VITAD, B12FOL #### [facility] [address] [place] [address] Dr. Gentry Harmon WBC 17.3 103/ul Critically high 4.0-11.0 [facility] Comment on above: Performed By: #### FETIBC, VITAD, B12FOL #### [facility] [address] [place] [address] Dr. Gentry Harmon IRON AND TIBCon 04-11-2022 % SATURATION 15.7 % Normal [facility] Comment on above: Performed By: #### FETIBC, VITAD, B12FOL #### [facility] [address] [place] [address] Dr. Getnry Harmon Iron [Mass/Vol] 58.0 ug/dL Normal 50.0-170.0 [facility] Comment on above: Performed By: #### FETIBC, VITAD, B12FOL #### [facility] [address] [place] [address] Dr. Gentry Harmon TIBC DIRECT 369.0 ug/dL Normal 250.0-450. 0 [facility] Comment on above: Performed By: #### FETIBC, VITAD, B12FOL #### [facility] [address] [place] [address] Dr. Gentry Harmon PREALBUMINon 04-11-2022 Prealbumin [Mass/Vol] 27.8 mg/dL Normal 20.9-45.5 [facility] Comment on above: Performed By: #### CMP, PREALB #### [facility] [address] [place] [address] Dr. Gentry Harmon PROF 14(COMP METB)on 04-11- 022 Albumin [Mass/Vol] 3.3 g/dL Critically low 3.4-5.0 [facility] Comment on above: Performed By: #### CMP, PREALB #### [facility] [address] [place] [address] Dr. Gentry Harmon Albumin/Globulin [Mass ratio] 0.8 {ratio} Normal [facility] Comment on above: Performed By: #### CMP, PREALB #### [facility] [address] [place] [address] Dr. Gentry Harmon ALP [Catalytic activity/Vol] 89 U/L Normal 46-116 [facility] Comment on above: Performed By: #### CMP, PREALB #### [facility] [address] [place] [address] Dr. Gentry Harmon ALT [Catalytic activity/Vol] 16 U/L Normal 14-59 [facility] Comment on above: Performed By: #### CMP, PREALB #### [facility] [address] [address] [address] Gentry Harmon Anion gap [Moles/Vol] 11.3 mmol/L Normal [facility] Comment on above: Performed By: #### CMP, PREALB #### [facility] [address] [address] [address] Gentry Harmon AST [Catalytic activity/Vol] 11 U/L Critically low 15-37 [facility] Comment on above: Performed By: #### CMP, PREALB #### [facility] [address] [address] [address] Gentry Harmon Bilirubin [Mass/Vol] 0.1 mg/dL Critically low 0.2-1.0 [facility] Comment on above: Performed By: #### CMP, PREALB #### [facility] [address] [address] [address] Gentry Harmon Calcium [Mass/Vol] 8.8 mg/dL Normal 8.5-10.1 [facility] Comment on above: Performed By: #### CMP, PREALB #### [facility] [address] [address] [address] Gentry Harmon Chloride [Moles/Vol] 103 mmol/L Normal 98-107 [facility] Comment on above: Performed By: #### CMP, PREALB #### [facility] [address] [address] [address] Gentry Harmon CO2 [Moles/Vol] 25.6 mmol/L Normal 21.0-32.0 [facility] Comment on above: Performed By: #### CMP, PREALB #### [facility] [address] [address] [address] Gentry Harmon Creatinine [Mass/Vol] 0.81 mg/dL Normal 0.55-1.02 [facility] Comment on above: Performed By: #### CMP, PREALB #### [facility] [address] [address] [address] Gentry Harmon EGFR-AF [place] >60 Normal >=60 [facility] Comment on above: Performed By: #### CMP, PREALB #### [facility] [address] [address] [address] Gentry Harmon EGFR-NON AF [place] >60 Normal >=60 [facility] Comment on above: Performed By: #### CMP, PREALB #### [facility] [address] [address] [address] Gentry Harmon Globulin (S) [Mass/Vol] 4.4 g/dL Normal [facility] Comment on above: Performed By: #### CMP, PREALB #### [facility] [address] [address] [address] Gentry Harmon Glucose [Mass/Vol] 101 mg/dL Normal 74-106 [facility] Comment on above: Performed By: #### CMP, PREALB #### [facility] [address] [address] [address] Gentry Harmon Potassium [Moles/Vol] 3.9 mmol/L Normal 3.5-5.1 [facility] Comment on above: Performed By: #### CMP, PREALB #### [facility] [address] [address] [address] Gentry Harmon Protein [Mass/Vol] 7.7 g/dL Normal 6.4-8.2 [facility] Comment on above: Performed By: #### CMP, PREALB #### [facility] [address] [address] [address] Gentry Harmon Sodium [Moles/Vol] 136 mmol/L Normal 136-145 [facility] Comment on above: Performed By: #### CMP, PREALB #### [facility] [address] [address] [address] Gentry Harmon Urea nitrogen [Mass/Vol] 10.0 mg/dL Normal 7.0-18.0 [facility] Comment on above: Performed By: #### CMP, PREALB #### [facility] [address] [address] [address] Gentry Harmon Urea nitrogen/Creatin ine [Mass ratio] 12.3 mg/mg Normal [facility] Comment on above: Performed By: #### CMP, PREALB #### [facility] [address] [address] [address] Gentry Harmon VIT B12 AND FOLATEon 022 Cobalamin (Vitamin B12) [Mass/Vol] 226.0 pg/mL Normal 193.0-986. 0 [facility] Comment on above: Performed By: #### FETIBC, VITAD, B12FOL #### [facility] [address] [address] [address] Gentry Harmon FOLATE 3.20 ng/mL Critically low 8.60-58.90 [facility] Comment on above: Performed By: #### FETIBC, VITAD, B12FOL #### [facility] [address] [place] [address] Dr. Gentry Harmon VITAMIN D 25 OHon 04-11-2022 VIT D 25-OH 23.6 ng/mL Normal [facility] Comment on above: Performed By: #### FETIBC, VITAD, B12FOL #### [facility] [address] [place] [address] Dr. Gentry Harmon VIT D RANGES SEE BELOW Normal [facility] Comment on above: Result Comment: <20 ng/mL Vit D deficien t 20 - <30 ng/mL Vit D insufficient 30 - 100 ng/mL Vit D sufficient >100 ng/mL Potential Toxicity Performed By: #### F ETIBC, VITAD, B12FOL #### [facility] [address] [place] [address] Dr. Gentry Harmon XR LSPINE 2_3 VIEWSon [...] by: ESTELLA ALVES Date: 2022-04-01 19:22 Normal [facility] CT ABD/PEL W IVCONon 022 CT ABD/PEL W IVCON * * *Final Report* * * DATE OF EXAM: Feb 12 2022 2:57PM [facility] 0530 - CT ABD/PEL W IVCON / [...] lesions. Lower thorax: Lower lungs are clear. Nutrition Representative (topogram) images: Unremarkable. IMPRESSION: No acute process in the abdomen or pelvis. Architecture Faculty Member: PSCB Transcribe Date/Time: Feb 12 2022 3:04P Dictated by : MARIELA GRECO MD This examination was interpreted and the report reviewed and electronically signed by: MARIELA GRECO MD on Feb 12 2022 3:19PM EST [id number] Normal [facility] NURSING PROGon 02-12-2022 NURSING PROG [facility] ID: [id number] Author: Elizabeth Stephens RN Service: Radiology Author [...] SIGNATURE: Elizabeth Stephens RN PATIENT NAME: Susi A Ortiz DATE: February 12, 2022 TIME: 2:30 PM [facility] ANES POSTPROC EVALon 022 ANES POSTPROC EVAL HNO ID: [id number] Author: Carolina Pink MD Service: Anesthesiology Author [...] Granda MD; Carolina Pink MD; Sami Murcia APRN.MOBILE APPLICATION TESTER Responsible Provider: Carolina Pink MD Anesthesia Type: [...] SIGNATURE: Carolina Pink MD PATIENT NAME: Susi Naqvi Ortiz DATE: December 18, 2021 TIME: 3:11 PM [facility]: [id number] [facility] 12-18-2021 ANES PRE-OP HNO ID: [id number] Author: Carolina Pink MD Service: Anesthesiology Author Type: Physician Type: Anesthesia Preprocedure Evaluation Filed: 12/18/2021 11:23 AM Note Text: ANESTHESIOLOGY DAY OF SURGERY NOTE : 1985 Procedure Information Date/Time: 12/18/21 1115 Scheduled providers: Joe Granda MD; Carolina Pink MD; Sami Murcia APRN.MOBILE APPLICATION TESTER Procedure: EGD DIAGNOSTIC Location: Procedures Estimated body [...] and consent discussed: yes. Patient / Responsible Republican agrees to proceed: yes Patient / Surrogate [...] SIGNATURE: Carolina Pink MD PATIENT NAME: Susi Jeanenship DATE: December 18, 2021 TIME: 11:22 AM CSN: [id number] Normal [facility] EGD DIAGNOSTICon 12-18-2021 [facility] GI endoscopyon 022 Upper GI endoscopy [facility] Gastrointestinal Endoscopy Patient Name: Susi Ortiz Procedure [...] within the past several years. Referring Physician: Jasyhree Huffman CNP (Referring MD) Medicines: Monitored Anesthesia [...] by the physician, the nurse and the finish remover in the pre-procedure area in the endoscopy [...] previously scheduled. Procedure Code(s): --- Professional --- 05051, Esophagogastroduodenoscopy, flexible, transoral; diagnostic, including collection of specimen(s) by brushing or washing, when performed (separate procedure) Diagnosis Code(s): --- Professional --- Z98.84, Bariatric surgery status R10.13, Epigastric pain R12, Heartburn K95.89, Other complications of other bariatric procedure CPT copyright 2019 [employer]. All rights reserved. The codes documented in this report are preliminary and upon twist packer review may be revised to meet current compliance requirements. Attending Participation: I personally performed the entire procedure. Scope In: 12:23:05 PM Scope Out: 12:26:48 PM MD Joe Gomez MD 12/18/2021 12:32:03 PM This report has been signed electronically by Joe Granda MD Number of Addenda: 0 Note Initiated On: 12/18/2021 12:11 PM Estimated Blood Loss: Estimated blood loss: none. Normal [facility] HISTORY PHYSICALon HISTORY PHYSICAL HNO ID: [id number] Author: Melissa Olivas PA-C Service: ? Author Type: Physician Academic Director Type: HANDP Filed: 12/10/2021 1:13 PM Note Text: HISTORY AND PHYSICAL EXAMINATION SERVICE DATE: 12/05/2021 SERVICE TIME: 1:12 PM PRIMARY CARE PHYSICIAN: Geneva Estrada, ENTRY LEVEL, ENTRY LEVEL This is a virtual visit using alternative [...] Negative for: dysuria, frequent urination and hematuria. NEWSPAPER EDITOR: +amenorrhea with IUD Endocrine: Negative for: diabetes [...] CHOLECYSTECTOMY HX 06/29/2007 - LAP SLEEVE GASTRECTOMY 2016 - NEUROPLASTY AND/TRANSPOS MEDIAN NRV CARPAL TUNNE [...] Take 50 mg by mouth twice daily. Takin (more content not included)... Normal [facility] XR foot LT min 3V*on 022 XR foot LT min 3V* [facility] [employer] Other XR foot LT min 3V* [facility] Main [facility] [employer] Other XR foot LT min 3V* [facility] [employer] Other XR foot LT min 3V* [place] [address] [employer] Other XR foot LT min 3V* XRay Report [employer] Other XR foot LT min 3V* Signed [employer] Other XR foot LT min 3V* Patient: Susi Ortiz MR#: M [employer] Other XR foot LT min 3V* [id number] [employer] Other XR foot LT min 3V* : 1985 Acct:[id number] [employer] Other XR foot LT min 3V* Age/Sex: 36 / F ADM Date: 11/13/21 [employer] Other XR foot LT min 3V* Loc: XDUCLY Room: Type: REG CLI [employer] Other XR foot LT min 3V* Attending Dr: Christa JONES [employer] Other XR foot LT min 3V* Ordering Provider: ROBERT Feliciano [employer] Other XR foot LT min 3V* Date of Service: 11/13/21 [employer] Other XR foot LT min 3V* XR/XR foot LT min 3V*: Left foot pain [employer] Other XR foot LT min 3V* Copies to: DIMAS FelicianoC [employer] Other XR foot LT min 3V* Left foot 11/13/2021. [employer] Other XR foot LT min 3V* CLINICAL DATA: Left foot pain. [employer] Other XR foot LT min 3V* FINDINGS: 3 views of the left foot were obtained and are compared with a prior study 03/21/2019. [employer] Other XR foot LT min 3V* No acute fracture or dislocation is identified. There is calcaneal spurring. No other bony [employer] Other XR foot LT min 3V* abnormality is seen. No localized soft tissue swelling is noted. [employer] Other XR foot LT min 3V* XR/XR foot LT min 3V* [employer] Other XR foot LT min 3V* IMPRESSION: Calcaneal spurring. No acute bony abnormality. [employer] Other XR foot LT min 3V* Impression dictated by: Pawan Gallardo Jr., M.D.11/13/2021 11:30 AM [employer] Other XR foot LT min 3V* Dictation Location: [facility]-- [employer] Other XR foot LT min 3V* Transcribed By: GENO 11/13/21 1130 [employer] Other XR foot LT min 3V* Dictated By: Pawan Gallardo Jr, MD 11/13/21 1127 [employer] Other XR foot LT min 3V* Signed By: [employer] Other XR foot LT min 3V* 11/13/21 1130 [employer] Other REGISTERED NURSING PROFESSOR - Office Visiton REGISTERED NURSING PROFESSOR - Office Visit Diagnoses/Problems Assessed Adnexal mass (625.8) (N94.89) Pelvic pain (R10.2) Orders Alpha Fetoprotein, Serum; Status:Active; Requested for:[id number]; Cancer Antigen, 125; Status:Active; Requested for:35Hbp0738; Cancer Antigen, GI Ca 19-9; Status:Active; Requested for:15Qwv4830; Carcinoembryonic Antigen; Status:Active; Requested for:30Sep2021; HCG, Beta [...] options and next steps. Plan: [x ] NEWSPAPER EDITOR ultrasound, patient is to contact our office to schedule [x ] we will check tumor markers [x ] our office staff will reach out to the patient to sign medical record release forms for her operative procedures performed at [facility] [x ] patient is to follow-up with me once this work-up is complete A copy of this note was sent electronically to Dr. Cherri Horvath MD [facility] [phone] [place] [phone] [place] Provider Impressions Susi is a 36-year-old female [...] options and next steps. Plan: [x ] NEWSPAPER EDITOR ultrasound, patient is to contact our office to schedule [x ] we will check tumor markers [x ] our office staff will reach out to the patient to sign medical record release forms for her operative procedures performed at [facility] [x ] patient is to follow-up with me once this work-up is complete A copy of this note was sent electronically to Dr. Cherri Horvath MD [facility] [phone] [place] [phone] [place] Appointment Duration:. 45 minutes; greater than half [...] Cyst on Right Ovary. History of Present Ngjsqym4909/30/2021 9:15AM SUSI ORTIZ , 36 year is contacted for an (audio-visual, or audio only) Telehealth visit. Today's visit was provided through telemedicine conferencing: Using [employer] platform. Consent: The concept of telemedicine? has [...] of Pfizer vaccine History of present illness: Susi is a [...] She went in for evaluation with her REGISTERED NURSING PROFESSOR in early January 2021, and was subsequently found to have a complex ovarian cyst. She was taken (more content not included)... Normal [employer] Tobacco Screening.on 022 Fall risk assessment a) No falls within the last year RJ-XFPDF-Jhlb ker 206A IVF Work Phone: Last menstrual period start date MIRENA JY-JAOID-Ytwi ker 206A IV[facility] Work Phone: Tobacco use status CPHS b) No JH-HFOXB-Pxqc ker 206A IVF Work Phone: POCT urine pregnancyon 04-06 Beta HCG ( test) Ql (U) Negative NEGATIVE [place], [place] Comment on above: Specimens with hCG levels near the thres hold of the test (25 mIU/mL) may give a negative or indeterminate result. In such cases, another test should be performed with a new specimen in 48-72 hours. If early is suspected clinically in this setting, correlation with quantitative serum b-hCG level is suggested. [place] [address] Surgical Pathologyon 020 Surgical Pathology (NOTE) -- Diagnosis -- STOMACH, BIOPSIES: - MILD CHRONIC INACTIVE GASTRITIS. - NEGATIVE FOR ACTIVE GASTRITIS, INTESTINAL METAPLASIA OR DYSPLASIA. Ignacio Harris M.D. Electronically Signed Out 04/10/2020 Clinical Information Pre-op Diagnosis: OBESITY Operative Findings: STOMACH BIOPSY TO RULE OUT H. PYLORI STAIN Operation Performed: EGD BIOPSY Source of Specimen 1: STOMACH BIOPSY TO RULE OUT H. PYLORI (A) Gross Description SUSI JEANENSHIP, STOMACH BIOPSY TO RULE OUT H. PYLORI STAIN Arimo-johnson tissue fragments, each 0.2 x 0.2 x [...] SURGICAL PATHOLOGY CONSULTATION Patient Name: SUSI ORTIZ Rec: [id number] Path Number: [id number] [facility] ANATOMIC PATHOLOGY [address] [place] [id number] Normal [facility] Comment on above: Performed By: #### PPPVS #### [address] [address] Critical Care Cns: Tito Balderrama MD [id number]-5bd 04-04-2020 SARS-CoV-2 Not Detected Normal Not Detected [facility] Comment on above: Result Comment: (NOTE) This nucleic acid amplification test was developed and its performance characteristics determined by [employer]. Nucleic acid amplification tests include PCR and [...] detected) result in this assay. Performed At: [facility] [address] [place], [place] [id number] You Naqvi MD Ph:[phone] Performed By: #### A COV #### [facility] [address] [place] [address] Critical Care Cns: Olivier Espinosa MD Covid-19 Ambulatoryon 2019 SARS-CoV-2, ASH Not Detected Not Detected [place], [place] Comment on above: (NOTE) This nucleic acid amplification test was developed and its performance characteristics determined by [employer]. Nucleic acid amplification tests include PCR and [...] detected) result in this assay. Performed At: [facility] [address] [facility] [place] [id number] You Naqvi MD Ph:[phone] Drug Scr,Pain Mgmt Uon 01-09 7-Aminoclonazep, Ur Not Detected Normal [facility] Comment on above: Performed By: #### ADAUPM ####[place] [id number] [facility] [place] [address] Acetaminophen mass conc Not Detected Normal [facility] Comment on above: Performed By: #### ADAUPM ####[address] [place] [address] Xrycn-AW-Qrsqjm, Ur Not Detected Normal [facility] Comment on above: Performed By: #### ADAUPM ####[address] [address] Alprazolam, Ur Not Detected Normal [facility] Comment on above: Performed By: #### ADAUPM ####[facility] [facility] [place] [address] Amphetamine, Ur Not Detected Normal [facility] Comment on above: Performed By: #### ADAUPM ####[facility] [place] [address], [place] [address] Barbiturates, Ur Not Detected Normal [facility] Comment on above: Performed By: #### ADAUPM ####[facility] [place] [address], [place] [address] Benzoylecgonine, Ur Not Detected Normal [facility] Comment on above: Performed By: #### ADAUPM ####[facility] [place] [address] [place] [address] Buprenorphine, Ur Not Detected Normal [facility] Comment on above: Performed By: #### ADAUPM ####[address] [place] [address] Carisoprodol, Ur Not Detected Normal [facility] Comment on above: Result Comment: (NOTE)The carisoprodol i mmunoassay has cross-reactivity to carisoprodoland meprobamate. Performed By: #### A DAUPM ####[facility] [place] [address] Clonazepam, Ur Not Detected Normal [facility] Comment on above: Performed By: #### ADAUPM ####[facility] [place] [address] [place] [address] Codeine, Ur Not Detected Normal [facility] Comment on above: Performed By: #### ADAUPM ####[facility] [facility] [place] [address] Creatinine 52.1 mg/dL Normal 20.0-400.0 [facility] Comment on above: Performed By: #### ADAUPM ####[facility] [place] [address] Diazepam, Ur Not Detected Normal [facility] Comment on above: Performed By: #### ADAUPM ####[address] [address] EER Hi Res Interp Ur See Note Normal [facility] Comment on above: Result Comment: (NOTE)Access Contatta ed Report using either link below:-Direct access: [email or web address] Username, Password: [email or web address]: [email or web address]: [email or web address] by [employer],[address] [place] [address] hwt.[employer], Ari Lowe MD, Lab. DirectorPerformed at [facility] [address] [place] [address] Performed By: #### A DAUPM ####[address] [address] Fentanyl, Ur Not Detected Normal [facility] Comment on above: Performed By: #### ADAUPM ####[address] [address] Glucose mass conc Not Detected Normal [facility] Comment on above: Performed By: #### ADAUPM ####[address] [address] Hydrocodone, Ur Not Detected Normal [facility] Comment on above: Performed By: #### ADAUPM ####[facility] [facility] [place] [address] Hydromorphone, Ur Not Detected Normal [facility] Comment on above: Performed By: #### ADAUPM ####[facility] [place] [address].[place] [address] Lorazepam, Ur Not Detected Normal [facility] Comment on above: Performed By: #### ADAUPM ####[facility] [place] [address].[place] [address] Marijuana Metab, Ur Not Detected Normal [facility] Comment on above: Performed By: #### ADAUPM ####[address] [place] [address] MDA, Ur Not Detected Normal [facility] Comment on above: Performed By: #### ADAUPM ####[facility] [place] [address].[place] [address] MDEA, Terra, Ur Not Detected Normal [facility] Comment on above: Performed By: #### ADAUPM ####[address] [place] [address] MDMA, Ecstasy, Ur Not Detected Normal [facility] Comment on above: Performed By: #### ADAUPM ####[address] [place] [address] Meperidine metab, Ur Not Detected Normal [facility] Comment on above: Performed By: #### ADAUPM ####[address] [place] [address] Methadone, Ur Not Detected Normal [facility] Comment on above: Performed By: #### ADAUPM ####[address] [place] [address] Methamphetamine, Ur Not Detected Normal [facility] Comment on above: Performed By: #### ADAUPM ####[facility] [place] [address] Methylphenidate Not Detected Normal [facility] Comment on above: Performed By: #### ADAUPM ####[facility] [place] [address] [place] [address] Midazolam, Ur Not Detected Normal [facility] Comment on above: Performed By: #### ADAUPM ####[address] [place] [address] Morphine, Ur Not Detected Normal [facility] Comment on above: Performed By: #### ADAUPM ####[address] [place] [address] Norbuprenorphine , Ur Not Detected Normal [facility] Comment on above: Performed By: #### ADAUPM ####[address] [place] [address] Nordiazepam, Ur Not Detected Normal [facility] Comment on above: Performed By: #### ADAUPM ####[address] [place] [address] Norfentanyl, Ur Not Detected Normal [facility] Comment on above: Performed By: #### ADAUPM ####[address] [place] [address] Norhydrocodone, Ur Not Detected Normal [facility] Comment on above: Performed By: #### ADAUPM ####[address] [place] [address] Noroxycodone, Ur Not Detected Normal [facility] Comment on above: Performed By: #### ADAUPM ####[facility] [facility] [place] [address] Noroxymorphone, Ur Not Detected Normal [facility] Comment on above: Performed By: #### ADAUPM ####[facility] [facility] [place] [address] Oxazepam, Ur Not Detected Normal [facility] Comment on above: Performed By: #### ADAUPM ####[facility] [facility] [place] [address] Oxycodone, Ur Not Detected Normal [facility] Comment on above: Performed By: #### ADAUPM ####[facility] [facility] [place] [address] Oxymorphone, Ur Not Detected Normal [facility] Comment on above: Performed By: #### ADAUPM ####[facility] [facility] [place] [address] Pain Mgt [address]g Handley, Ur See Below Normal [facility] Comment on above: Result Comment: (NOTE)Methodology: Quali [...] was developed and its performance characteristicsdetermined by [employer]. The U.S. Food and DrugAdministration has not approved or cleared this test; however, FDAclearance or approval is not currently required for clinical use.The results are not intended to be used as the sole means forclinical diagnosis or patient management decisions. Performed By: #### A DAUPM ####[facility] [place] [address] PCP, Ur Not Detected Normal [facility] Comment on above: Performed By: #### ADAUPM ####[facility] [place] [address] Phentermine, Ur Not Detected Normal [facility] Comment on above: Performed By: #### ADAUPM ####[facility] [place], [place] [id number] Pn Mg Drg Handley Int Ur Consistent Normal [facility] Comment on above: Result Comment: (NOTE) _DRUGS EXPECTED:NO DRUGS EXPECTED ___CONSISTENT with medications provided:NO DRUGS DETECTED ___INTERPRETIVE INFORMATION:Pain Mgt Handley, High Res/EMIT, Ur, InterpInterpretation depends on accuracy and completeness of patientmedication information submitted by client. Performed By: #### A DAUPM ####[address] [address] Propoxyphene, Ur Not Detected Normal [facility] Comment on above: Performed By: #### ADAUPM ####[address] [address] Tapentadol o Sul, Ur Not Detected Normal [facility] Comment on above: Performed By: #### ADAUPM ####[address] [address] Tapentadol, Ur Not Detected Normal [facility] Comment on above: Performed By: #### ADAUPM ####[address] [address] Temazepam, Ur Not Detected Normal [facility] Comment on above: Performed By: #### ADAUPM ####[address] [address] Tramadol, Ur Not Detected Normal [facility] Comment on above: Performed By: #### ADAUPM ####[address] [address] Zolpidem, Ur Not Detected Normal [facility] Comment on above: Performed By: #### ADAUPM ####[address] [address] Drug Scr,Pain Mgmt Uon 01-06 Drugs Expected, Ur NONE Normal [facility] Comment on above: Performed By: #### ADAUPM ####[address] [address] Vital Signs Date Time Vital Sign Value Performing Clinician Facility 11-03-2023 10:45-0400 Body mass index (BMI) [Ratio] 63.34 kg/m2 Amina Nieto MD Work Phone: [facility] 11-03-2023 10:45-0400 Body weight 167.38 kg Amina Nieto MD Work Phone: [facility] 11-02-2023 12:53-0400 Body mass index (BMI) [Ratio] 63.34 kg/m2 Jayshree Huffman APRN.ENTRY LEVEL Work Phone: [facility] 11-02-2023 12:53-0400 Body weight 167.38 kg Jayshree Huffman APRN.ENTRY LEVEL Work Phone: [facility] 11-02-2023 10:22-0400 Body height 162.[address] Work Phone: [facility] 11-02-2023 10:22-0400 Body mass index (BMI) [Ratio] 63.48 kg/m2 Rupinder Sayra RD Work Phone: [facility] 11-02-2023 10:22-0400 Body weight 167.[address] Work Phone: [facility] Comment on above: verbal 09-07-2023 09:30-0400 Body height 162.6 cm Jayshree Huffman APRN.ENTRY LEVEL Work Phone: [facility] 09-07-2023 09:30-0400 Body temperature 98.01 [degF] Jayshree Huffman APRN.ENTRY LEVEL Work Phone: [facility] 09-07-2023 09:30-0400 Body weight 169.87 kg Jayshree Huffman APRN.ENTRY LEVEL Work Phone: [facility] 09-07-2023 09:30-0400 Diastolic blood pressure 81 mm[Hg] Jayshree Huffman APRN.ENTRY LEVEL Work Phone: [facility] 09-07-2023 09:30-0400 Heart rate 80 /min Jayshree Huffman APRN.ENTRY LEVEL Work Phone: [facility] 09-07-2023 09:30-0400 Systolic blood pressure 107 mm[Hg] Jayshree Huffman SLAB LIFTING ENGINEER.ENTRY LEVEL Work Phone: [facility] 08-31-2023 12:07-0500 Body height 162.[address] Work Phone: [facility] 08-31-2023 12:07-0500 Body weight 164.[address] Work Phone: [facility] 08-19-2023 12:14-0500 Body height 162.[address] Work Phone: [facility] 08-19-2023 12:14-0500 Body weight 167.[address] Work Phone: [facility] 08-17-2023 09:52-0500 Body height 162.6 cm Jayshree Huffman SLAB LIFTING ENGINEER.ENTRY LEVEL Work Phone: [facility] 08-17-2023 09:52-0500 Body temperature 97.3 [degF] Jayshree Huffman SLAB LIFTING ENGINEER.ENTRY LEVEL Work Phone: [facility] 08-17-2023 09:52-0500 Body weight 167.8 kg Jayshree Huffman APRN.ENTRY LEVEL Work Phone: [facility] 08-17-2023 09:52-0500 Diastolic blood pressure 75 mm[Hg] Jayshree Huffman APRN.ENTRY LEVEL Work Phone: [facility] 08-17-2023 09:52-0500 Heart rate 75 /min Jayshree Huffman APRN.ENTRY LEVEL Work Phone: [facility] 08-17-2023 09:52-0500 SaO2% (BldA) [Mass fraction] 97 % Jayshree Huffman APRN.ENTRY LEVEL Work Phone: [facility] 08-17-2023 09:52-0500 Systolic blood pressure 117 mm[Hg] Jayshree Huffman SLAB LIFTING ENGINEER.ENTRY LEVEL Work Phone: [facility] 03-10-2023 13:33-0400 Body height 162.6 cm Pacc 2 Work Phone: [facility] 03-10-2023 13:33-0400 Body temperature 97 [degF] Pacc 2 Work Phone: [facility] 03-10-2023 13:33-0400 Body weight 181.44 kg Pacc 2 Work Phone: [facility] 03-10-2023 13:33-0400 Diastolic blood pressure 66 mm[Hg] Pacc 2 Work Phone: [facility] 03-10-2023 13:33-0400 Heart rate 73 /min Pacc 2 Work Phone: [facility] 03-10-2023 13:33-0400 Respiratory rate 16 /min Pacc 2 Work Phone: [facility] 03-10-2023 13:33-0400 SaO2% (BldA) [Mass fraction] 97 % Pacc 2 Work Phone: [facility] 03-10-2023 13:33-0400 Systolic blood pressure 138 mm[Hg] Pacc 2 Work Phone: [facility] 03-05-2023 12:54-0400 Body height [address] Work Phone: [facility] 12-15-2022 15:09-0400 Body height [address] Work Phone: [facility] 12-15-2022 15:09-0400 Body weight 174.[address] Work Phone: [facility] 12-13-2022 09:30-0400 Body height 162.56 cm Linda South Other [employer] Other 12-13-2022 09:30-0400 Body mass index (BMI) [Ratio] 66.08 kg/m2 Linda South Other [employer] Other 12-13-2022 09:30-0400 Body temperature 98.2 [degF] Linda Zhangley Other [employer] Other 12-13-2022 09:30-0400 Body weight 174.64 kg Linda South Other [employer] Other 12-13-2022 09:30-0400 Respiratory rate 18 /min Linda Zhangley Other [employer] Other 12-13-2022 09:30-0400 SaO2% (BldA) [Mass fraction] 96 % Linda Zhangley Other [employer] Other 06-04-2022 11:04-0500 Body weight 185.07 kg Amina Nieto MD Work Phone: [facility] 04-16-2022 19:25-0400 Body height 162.56 cm Christa Nayeli Other [employer] Other 04-16-2022 19:25-0400 Body mass index (BMI) [Ratio] 60.07 kg/m2 Christa Nayeli Other [employer] Other 04-16-2022 19:25-0400 Body temperature 98.6 [degF] Christa Nayeli Other [employer] Other 04-16-2022 19:25-0400 Body weight 158.76 kg Christa Nayeli Other [employer] Other 04-16-2022 19:25-0400 Respiratory rate 18 /min Christa Nayeli Other [employer] Other 04-16-2022 19:25-0400 SaO2% (BldA) [Mass fraction] 97 % Christa Tyler Other [employer] Other 01-17-2022 09:12-0400 Body height [address] Work Phone: [facility] 01-17-2022 09:12-0400 Body weight 179.[address] Work Phone: [facility] 12-18-2021 12:45-0400 Diastolic blood pressure 103 mm[Hg] Joe Granda MD Work Phone: [facility] 12-18-2021 12:45-0400 SaO2% (BldA) [Mass fraction] 100 % Joe Granda MD Work Phone: [facility] 12-18-2021 12:45-0400 Systolic blood pressure 123 mm[Hg] Joe Granda MD Work Phone: [facility] 12-18-2021 12:34-0400 Body temperature 96.91 [degF] Joe Granda MD Work Phone: [facility] 12-18-2021 12:34-0400 Heart rate 106 /min Joe Granda MD Work Phone: [facility] 12-18-2021 12:34-0400 Respiratory rate 20 /min Joe Granda MD Work Phone: [facility] 11-13-2021 11:30-0400 Body height 162.56 cm Christa Tyler Other [employer] Other 11-13-2021 11:30-0400 Body mass index (BMI) [Ratio] 68.65 kg/m2 Christa Tyler Other [employer] Other 11-13-2021 11:30-0400 Body temperature 98.3 [degF] Christa Tyler Other [employer] Other 11-13-2021 11:30-0400 Body weight 181.44 kg Christa Tyler Other [employer] Other 11-13-2021 11:30-0400 Diastolic blood pressure 77 mm[Hg] Christa Tyler Other [employer] Other 11-13-2021 11:30-0400 Respiratory rate 18 /min Christa Tyler Other [employer] Other 11-13-2021 11:30-0400 SaO2% (BldA) [Mass fraction] 100 % Christa Tyler Other [employer] Other 11-13-2021 11:30-0400 Systolic blood pressure 125 mm[Hg] Christa Tyler Other [employer] Other 11-04-2021 12:44-0400 Body height [address] Work Phone: [facility] 11-04-2021 12:44-0400 Body weight 184.[address] Work Phone: [facility] 11-04-2021 11:13-0400 Body height 160 cm Joe Granda MD Work Phone: [facility] 11-04-2021 11:13-0400 Body weight 184.61 kg Joe Granda MD Work Phone: [facility] 11-04-2021 11:13-0400 Diastolic blood pressure 74 mm[Hg] Joe Granda MD Work Phone: [facility] 11-04-2021 11:13-0400 Heart rate 86 /min Joe Granda MD Work Phone: [facility] 11-04-2021 11:13-0400 Systolic blood pressure 133 mm[Hg] Joe Granda MD Work Phone: [facility] 10-11-2021 14:45-0400 Body height 162.56 cm Bambi Gonzalez Other [employer] Other 10-11-2021 14:45-0400 Body mass index (BMI) [Ratio] 64.36 kg/m2 Bambi Gonzalez Other [employer] Other 10-11-2021 14:45-0400 Body temperature 97.3 [degF] Bambi Gonzalez Other [employer] Other 10-11-2021 14:45-0400 Body weight 170.1 kg Bambi Gonzalez Other [employer] Other 10-11-2021 14:45-0400 Respiratory rate 26 /min Bambi Gonzalez Other [employer] Other 10-11-2021 14:45-0400 SaO2% (BldA) [Mass fraction] 94 % Bambi Gonzalez Other [employer] Other 10-03-2021 13:25-0400 Body height 162.56 cm Rupinder Reddy Other [employer] Other 10-03-2021 13:25-0400 Body mass index (BMI) [Ratio] 68.82 kg/m2 Rupinder Reddy Other [employer] Other 10-03-2021 13:25-0400 Body temperature 97.5 [degF] Rupinder Reddy Other [employer] Other 10-03-2021 13:25-0400 Body weight 181.89 kg Rupinder Reddy Other [employer] Other 10-03-2021 13:25-0400 Diastolic blood pressure 57 mm[Hg] Rupinder Blakely Other [employer] Other 10-03-2021 13:25-0400 Respiratory rate 18 /min Rupinder Blakely Other [employer] Other 10-03-2021 13:25-0400 SaO2% (BldA) [Mass fraction] 99 % Rupinder Blakely Other [employer] Other 10-03-2021 13:25-0400 Systolic blood pressure 118 mm[Hg] Rupinder Blakely Other [employer] Other 09-30-2021 09:03-0400 Body height 162.56 cm Prince Lyles Yuliet Work Phone: [id number] 206A IVF Work Phone: 09-30-2021 09:03-0400 Body mass index (BMI) [Ratio] 60.08 kg/m2 Prince Trupti Horvath Work Phone: [id number] 206A IVF Work Phone: 09-30-2021 09:03-0400 Body surface area Derived from formula 2.48 m2 Prince Trupti Horvath Work Phone: [id number] 206A IVF Work Phone: 09-30-2021 09:03-0400 Body weight 158.76 kg Prince Horvath Work Phone: [id number] 206A IVF Work Phone: 09-30-2021 09:03-0400 2 1 Prince Horvath Work Phone: [id number] 206A IVF Work Phone: Comment on above: GRAV PARA 09-30-2021 09:03-0400 0 1 Prince Horvath Work Phone: [id number] 206A IVF Work Phone: Comment on above: [employer] 09-23-2021 11:00-0400 Body height 160 cm Jayshree Huffman SLAB LIFTING ENGINEER.ENTRY LEVEL Work Phone: [facility] 09-23-2021 11:00-0400 Body weight 165.56 kg Jayshree Huffman [employer] L[employer]ING ENGINEER.ENTRY LEVEL Work Phone: [facility] 05-17-2021 11:18-0500 Body height 160 cm Humza Walter MD Work Phone: [facility] 05-17-2021 11:18-0500 Body mass index (BMI) [Ratio] 68.09 kg/m2 Humza Walter MD Work Phone: [facility] 05-17-2021 11:18-0500 Body temperature 96.3 [degF] Humza Walter MD Work Phone: [facility] 05-17-2021 11:18-0500 Body weight 174.36 kg Humza Walter MD Work Phone: [facility] 05-17-2021 11:18-0500 Diastolic blood pressure 77 mm[Hg] Humza Walter MD Work Phone: [facility] 05-17-2021 11:18-0500 Heart rate 75 /min Humza Walter MD Work Phone: [facility] 05-17-2021 11:18-0500 SaO2% (BldA) [Mass fraction] 95 % Humza aWlter MD Work Phone: [facility] 05-17-2021 11:18-0500 Systolic blood pressure 133 mm[Hg] Humza Walter MD Work Phone: [facility] 04-06-2020 09:25-0400 BP Diastolic 77 mm[Hg] [facility] 04-06-2020 09:25-0400 BP Systolic 129 mm[Hg] [facility] 04-06-2020 09:25-0400 Pulse (Heart Rate) 85 /min [facility] 04-06-2020 09:25-0400 Pulse Oximetry 100 % [facility] 04-06-2020 09:25-0400 Respiratory Rate 17 /min [facility] [place] 04-06-2020 08:54-0400 Body Temperature 97.81 [degF] [facility] 04-06-2020 08:06-0400 BMI (Body Mass Index) 64.68 kg/m2 [facility] [place] 04-06-2020 08:06-0400 Body weight 165.62 kg [facility] 04-06-2020 08:06-0400 Height 160 cm [facility] En[facility]ters Encounter Date Encounter Type Care Provider Facility Start: 03-04-2024 End: 03-04-2024 Refill Amina Nieto MD Work Phone: General Surgery Comment on above: Refill Request Start: 03-04-2024 End: 03-04-2024 ambulatory PUJA BERRY Not Available Start: 01-06-2024 End: 01-06-2024 ambulatory BUSHRA B APLING Not Available Start: 12-09-2023 End: 12-09-2023 ambulatory BUSHRA B APLING Not Available Start: 12-07-2023 End: 12-07-2023 Evaluation and management of inpatient YOHSI DELGADO [facility] Start: 12-02-2023 End: 12-02-2023 Evaluation and management of inpatient OTILIO LEON [facility] Start: 11-27-2023 End: 11-27-2023 ambulatory ELIZABET SIMENTAL Facility:[facility] Start: 11-17-2023 End: 11-17-2023 ambulatory OTILIO LEON Not Available Start: 11-11-2023 End: 11-11-2023 ambulatory BUSHRA LEWIS Not Available Start: 11-04-2023 End: 11-04-2023 Evaluation and management of inpatient YOSHI DELGADO [facility] Start: 11-04-2023 End: 11-04-2023 Evaluation and management of inpatient OTILIO Naqvi [facility] Start: 11-03-2023 End: 11-03-2023 Admission to same day surgery center Amina Nieto MD Work Phone: General Surgery Comment on above: BMI 60.0-69.9, adult (HCC) (Primary Dx); S/P bariatric surgery Start: 11-03-2023 End: 11-03-2023 Telemedicine consultation with patient Amina Nieto MD Work Phone: General Surgery Start: 11-03-2023 End: 11-03-2023 ambulatory AMINA NIETO Facility:[facility] Start: 11-02-2023 End: 11-02-2023 Admission to same day surgery center Rupinder Colbert RD Work Phone: General Surgery Comment on above: S/P bariatric surger y (Primary Dx); Impaired intestinal absorption; Body mass index (BMI) 60.0-69.9, adult (HCC); Dietary counseling and surveillance Encounter for surgic al aftercare following surgery of digestive system (Primary Dx); Impaired intestinal absorption; S/P biliopancreatic diversion with duodenal switch; Iron deficiency; Dietary zinc deficiency; Vitamin D deficiency; S/P bariatric surgery Start: 11-02-2023 End: 11-02-2023 ambulatory [facility] Facility:[facility] Start: 11-02-2023 End: 11-02-2023 Telemedicine consultation with patient Rupinder Colbert RD Work Phone: General Surgery Start: 10-28-2023 End: 10-28-2023 ambulatory [facility] Facility:[facility] Start: 10-20-2023 End: [facility] Start: 10-20-2023 Encounter for other preprocedural examination OTILIO [facility] Start: 10-20-2023 End: 10-22-2023 ambulatory OTILIO Naqvi [facility] Start: 10-13-2023 End: 10-13-2023 ambulatory OTILIO LEON Not Available Start: 10-07-2023 End: 10-07-2023 ambulatory BUSHRA LEWIS Not Available Start: 09-16-2023 End: 09-16-2023 ambulatory KIKO HARLEY Not Available Start: 09-07-2023 End: 09-07-2023 ambulatory JOE GRANDA Facility:[facility] Start: 09-07-2023 End: 09-07-2023 Patient encounter procedure Jayshree Nathanael RUTHERFORD Work Phone: General Surgery Comment on above: [...] HARLEY Not Available Start: 08-31-2023 End: 08-31-2023 Admission to same day surgery center Rupinder Colbert RD Work Phone: General Surgery Comment on above: S/P bariatric surger y (Primary Dx); Body mass index (BMI) 60.0-69.9, adult (HCC); Dietary counseling and surveillance Start: 08-31-2023 End: 08-31-2023 ambulatory JOE GRANDA Facility:[facility] Start: 08-31-2023 End: 08-31-2023 Telemedicine consultation with patient Rupinder Colbert RD [facility] Phone[facility] Start: 08-19-2023 End: 08-19-2023 ambulatory Alex Monsivais [...] RD Work Phone: PAWAN MALIK [facility] Start: 08-17-2023 End: 08-17-2023 ambulatory JOE GRANDA Facility:[facility] Start: 08-17-2023 End: 08-17-2023 Patient encounter procedure Jayshree Huffman [employer] L[employer]ING ENGINEER.ENTRY LEVEL Work Phone: Endocrinology BMI Comment on above: S/P gastrointestinal surgery, follow-up exam (Primary Dx); Status post biliopancreatic diversion with duodenal switch; Post-operative nausea and vomiting Start: 08-13-2023 Telephone encounter Niki Peterson RN General Surgery Comment on above: Post Op Start: 08-04-2023 End: 08-11-2023 Evaluation and management of inpatient JOE GRANDA Facility:[facility] Start: 08-03-2023 Telephone encounter Silvia Curry RN General Surgery Start: 07-22-2023 End: 07-22-2023 ambulatory ELIZABET SIMENTAL Facility:[facility] Start: 07-22-2023 Encounter for other preprocedural examination JOE GRANDA [facility] Start: 07-21-2023 End: 07-21-2023 ambulatory JOE GRANDA Facility:[facility] Start: 07-20-2023 End: 07-20-2023 ambulatory JOE GRANDA Facility:[facility] Start: 07-14-2023 End: 07-14-2023 ambulatory ELIZABET RUMSCHLARoro Facility:[facility] Start: 07-13-2023 End: 07-13-2023 ambulatory ELIZABET RUMSCHLAG Facility:[facility] Start: 05-09-2023 Admission [facility] Joe Granda MD Work Phone: Endocrinology BMI Comment on above: About surgery Start: 05-09-2023 ambulatory Joe izquierdo MD Work Phone: PAWAN MALIK [facility] Start: 05-08-2023 ambulatory Joe izquierdo MD Work Phone: General Surgery Comment on above: Confirming Or Date Start: 05-08-2023 E-mail encounter rajiv girard caregiver Joe Granda MD Work Phone: [facility] Start: 04-30-2023 End: 04-30-2023 ambulatory SHAUNNA PERSAUD Facility:[facility] Start: 04-27-2023 Telephone encounter Joe sargent MD Work Phone: Endocrinology BMI Start: 04-13-2023 End: 04-13-[address] Work Phone: General Surgery Comment on above: Patient left without being seen (Primary Dx) Start: 04-13-2023 End: 04-13-2023 Telemedicine consultation with patient Rupinder Sayra OLIVAS Work Phone: [facility] Start: 03-31-2023 End: 04-01-2023 Evaluation and management of inpatient JOE GRANDA Facility:[facility] Start: 03-10-2023 End: 03-10-2023 PAT [facility] Work Phone: Pre Anesthesia Comment on above: Pre-op evaluation (P rimary Dx); Morbid obesity with body mass index of 60.0-69.9 in adult ([facility]); Gastroesophageal reflux disease, unspecified whether esophagitis present; TONEY on CPAP; Bipolar affective disorder, remission status unspecified ([facility]); Thrombocytosis; Migraine without status migrainosus, not intractable, unspecified migraine type Surgery question Start: 03-10-2023 End: 03-10-2023 Preprocedural examination done [facility] Work Phone: [facility] Work Phone: Start: 03-05-2023 End: 03-05-2023 [facility] Mireille Dao RD Work Phone: General Surgery Comment on above: Weight gain followin g gastric bypass surgery (Primary Dx); Abnormal weight gain; Preop testing; Snoring; Sleep-disordered breathing; Fatigue, unspecified type; S/P bariatric surgery; S/P gastric sleeve procedure; Dietary counseling and surveillance; BMI 60.0-69.9, adult (HCC) Start: 03-05-2023 End: 03-05-2023 Patient encounter status Mireille Dao BRENDON Work Phone: [facility] Work Phone: Start: 02-26-2023 End: 02-26-2023 ambulatory [facility] Facility:[facility] Start: 01-23-2023 End: 01-23-2023 ambulatory [facility] Facility:[facility] Start: 01-15-2023 End: 01-15-2023 ambulatory [facility] Facility:[facility] Start: 01-15-2023 Encounter for other preprocedural examination JOE GRANDA [facility] Start: 01-09-2023 End: 01-09-2023 ambulatory JOE GRANDA Facility:[facility] Start: 01-05-2023 Telephone encounter Joe sargent MD Work Phone: Endocrinology BMI Comment on above: Schedule Surgery (DS ) Start: 12-15-2022 End: 12-15-2022 Admission to same day surgery center Mireille Dao BRENDON Work Phone: General Surgery Comment on above: S/P gastric sleeve p rocedure (Primary Dx); Weight gain following gastric bypass surgery; BMI 60.0-69.9, adult (HCC); Dietary counseling and surveillance Start: 12-15-2022 End: 12-15-2022 ambulatory MIREILLE FELIBERTO Facility:[facility] Start: 12-15-2022 End: 12-15-2022 Telemedicine consultation with patient Mireille Dao RD Work Phone: [facility] Start: 12-13-2022 Office outpatient vi sit 15 minutes [facility] Start: 12-13-2022 End: 12-13-2022 ambulatory [facility] Other Start: 12-03-2022 Admission to same y surgery center Joe Granda MD Work Phone: General Surgery Comment on above: Insurance Authorizat ion (Not Real Surgery Date) Start: 12-03-2022 ambulatory Joe izquierdo MD Work Phone: [facility] Start: 11-03-2022 End: 11-04-[address] DOCTOR ALFARO Facility:[facility] Start: 08-27-2022 End: 08-28-[address] DOCTOR ALFARO Facility:[facility] Start: 08-19-2022 End: 08-19-2022 ambulatory MICHELLE GOMEZ . Facility:[facility] Start: 08-17-2022 Encounter for other preprocedural examination DR DOCTOR ALFARO [facility] Start: 08-12-2022 End: 08-13-[address] DOCTOR ALFARO Facility:[facility] Start: 08-12-2022 End: 08-13-2022 Encounter for other preprocedural examination DR DOCTOR ALFARO Facility:[facility] Start: 07-22-[address] DOCTOR ALFARO Facility :[facility] Start: 06-04-2022 End: 06-04-2022 [facility] Amina Nieto MD Work Phone: Endocrinology [...] Endocrinology BMI Comment on above: Patient Update (Jose lemons in surgery type) Start: 05-01-2022 Telephone encounter [...] Start: 04-16-2022 End: 04-16-2022 ambulatory Christa Tyler Facility:[facility] Start: 04-16-2022 End: 04-16-2022 Patient encounter procedure [facility] Start: 04-16-2022 End: 04-16-2022 ambulatory Joe Granda MD Work Phone: Endocrinology BMI Comment on above: Morbid obesity with body mass index of 60.0-69.9 in adult (HCC) (Primary Dx); Gastroesophageal reflux disease, unspecified whether esophagitis present Start: 04-16-2022 End: 04-16-2022 Telemedicine consultation with patient Joe Granda MD Work Phone: PAWAN MALIK [facility] Start: 04-16-2022 End: 04-16-2022 ambulatory NON STAFF [facility] Work Phone: Start: 04-16-2022 Office outpatient vi sit 15 minutes Christa Tyler [facility] Start: 04-15-2022 ambulatory Pao Hodgson RN Work Phone: Endocrinology BMI Comment on above: Upper GI Series Start: 04-15-2022 E-mail encounter fro m caregiver Pao Hodgson RN Work Phone: PAWAN MALIK [facility] Start: 04-11-2022 End: 04-12-[address] ESTELLA WHITEHEAD Facility:[facility] Start: 04-01-2022 End: 04-01-[address] KAT MUNGUIA . Facility:[facility] Start: 03-27-2022 End: 03-27-2022 ambulatory Rob Garcia Other [employer] Other Start: 03-27-2022 Telephone encounter Rob FOWLER [facility] Gastro[facility] Start: 03-10-2022 End: 03-10-2022 ambulatory Joe Granda MD Work Phone: Endocrinology BMI Comment on above: History of sleeve ga strectomy (Primary Dx) Start: 03-10-2022 End: 03-10-2022 Telemedicine consultation with patient Joe Granda MD Work Phone: PAWAN MALIK [facility] Start: 02-17-2022 End: 02-17-2022 ambulatory Joe Granda MD Work Phone: Endocrinology BMI Comment on above: NO SHOW (Primary Dx) Start: 02-17-2022 End: 02-17-2022 Telemedicine consultation with patient Joe Granda MD Work Phone: PAWAN MALIK [facility] Start: 02-12-2022 End: 02-12-2022 Subsequent hospital visit by physician Eusebia Pagan [facility] Work Phone: [facility] Radiology CT Scan Comment on above: Acquired [...] MD Work Phone: PAWAN MALIK [facility] Start: 01-17-2022 End: 01-17-[address] Work Phone: General Surgery Comment on above: Reassessment; Patien t Education Start: 12-18-2021 End: 12-18-2021 Subsequent hospital visit by physician Joe Granda MD Work Phone: Procedures Comment on above: TONEY on CPAP [G47.33, Z99.89] Start: 12-05-2021 End: 12-05-2021 ambulatory Akosua Peraza BRENDON Work Phone: General Surgery Comment on above: NO SHOW (Primary Dx) Start: 12-05-2021 End: 12-05-2021 Telemedicine consultation with patient Akosua Peraza RD Work Phone: [facility] Start: 11-13-2021 End: 11-13-2021 ambulatory Christa Tyler Other [employer] Other Start: 11-13-2021 Office outpatient vi sit 15 minutes Christaraymundo Tyler [facility] Start: 11-04-2021 End: 11-04-[address] Work Phone: Endocrinology BMI Comment on above: Reassessment; Carol somers Education Start: 11-04-2021 End: 11-04-2021 Patient encounter procedure Joe Granda MD Work Phone: Endocrinology BMI Comment on above: History of sleeve ga strectomy (Primary Dx); Gastric fistula Start: 10-28-2021 End: 10-28-2021 ambulatory Estella Nguyen Other [employer] Other Start: 10-28-2021 Telephone encounter Estella Nguyen [facility] Gastroenterology Start: 10-23-2021 End: 10-23-2021 ambulatory Celsa Argueta Other [employer] Other Start: 10-23-2021 Telephone encounter Celsa Argueta [facility] Start: 10-11-2021 End: 10-11-2021 ambulatory Bambi Gonzalez Other [employer] Other Start: 10-11-2021 Patient encounter procedure Bambi Gonzalez [facility] Start: 10-03-2021 End: 10-03-2021 ambulatory Rupinder Blakely Other [employer] Other Start: 10-03-2021 Office outpatient vi sit 25 minutes Rupinder Meredithler [facility] Start: 09-30-2021 Office consultation new/estab patient 40 min Prince Horvath Work Phone: [id number] 206A IVF Work Phone: Start: 09-25-2021 Orders Only Joe izquierdo MD Work Phone: General Surgery Comment on above: Dysphagia, unspecifi ed type (Primary Dx); Gastroesophageal reflux disease, unspecified whether esophagitis present; History of sleeve gastrectomy Start: 09-24-2021 E-mail encounter fro m caregiver Jayshree Huffman APRN.ENTRY LEVEL Work Phone: [facility] Start: 09-24-2021 Follow-up encounter Jayshree tilley APRN.ENTRY LEVEL Work Phone: General Surgery Comment on above: Appointment follow u p Start: 09-23-2021 End: 09-23-2021 ambulatory Jayshree Nathanael ADAMSONENTRY LEVEL Work Phone: General Surgery Comment on above: Gastroesophageal ref lux disease, unspecified whether esophagitis present (Primary Dx); Class 3 severe obesity with serious comorbidity and body mass index (BMI) of 60.0 to 69.9 in adult, unspecified obesity type (HCC); TONEY on CPAP; S/P laparoscopic sleeve gastrectomy; Postoperative malabsorption Start: 09-23-2021 End: 09-23-2021 Telemedicine consultation with patient Jayshree Huffman REY.ENTRY LEVEL Work Phone: [facility] Start: 05-17-2021 End: 05-17-2021 Office outpatient new 45 minutes Humza Walter MD Work Phone: [facility] Comment on above: S/P laparoscopic sle terra gastrectomy (Primary Dx); TONEY on CPAP; Morbid obesity with body mass index of 50 or higher; Gastroesophageal reflux disease, unspecified whether esophagitis present; Screening for viral disease; Other intestinal malabsorption Start: 04-06-2020 End: 04-06-2020 [facility] Start: 04-06-2020 End: 04-06-2020 Subsequent hospital visit by physician Kylah Vargas Work Phone: [facility] [place] Comment on above: S/P laparoscopic sle terra gastrectomy (Primary Dx) Start: 04-02-2020 End: 04-07-2020 Patient encounter procedure CHANA THOMAS [facility] Start: 04-02-2020 Patient encounter procedure ELIZABET SIMENTAL [facility] Start: 04-02-2020 End: 04-06-2020 Subsequent hospital visit by physician [facility] Covid19 Pat Screening Schedule MTHZ PRE ADMIT Comment on above: Preop testing Start: 01-06-2017 End: 01-07-2017 [facility] Procedures Date Procedure Procedure Detail Performing Clinician Start: 08-04-2023 History of gastrointestinal tract bypass S/P biliopancreatic diversion with duodenal switch Rupinder Colbert RD Work Phone: Start: 07-22-2023 Antibody screen JOE GRANDA Comment on above: Order Comment: Specimen Type: BLOOD SPEC IMEN Ordering Facility: [facility] Address: [address] [place] [address] Performed By: #### 2 [id number], [id number] #### [facility] CLIA [id number] [address] [place] [address] [place] Start: 04-16-2022 X-ray of right foot Start: 02-12-2022 Ct abdomen & pelvis w/contrast material Joe Granda MD Work Phone: Start: 12-18-2021 Esophagogastroduodenoscopy transoral diagnostic Jyashree Huffman APRN.ENTRY LEVEL Work Phone: Start: 08-19-2021 Adult depression screening assessment Jayshree Huffman APRN.ENTRY LEVEL Work Phone: Start: 04-06-2020 Level iv surg pathology gross&microscopic exam KYLAH VARGAS Start: 04-06-2020 DISCHARGE PATIENT KYLAH VARGAS Start: 04-06-2020 ASSESS KYLAH VARGAS Start: 04-06-2020 BEDREST KYLAH VARGAS Start: 04-06-2020 ENCOURAGE DEEP BREATHING AND COUGHING KYLAH VARGAS Start: 04-06-2020 INITIATE OXYGEN THERAPY PROTOCOL KYLAH VARGAS Start: 04-06-2020 NEURO/VASCULAR CHECKS KYLAH VARGAS Start: 04-06-2020 NOTIFY PHYSICIAN (SPECIFY) KYLAH COREY ASHLEY Start: 04-06-2020 NURSING COMMUNICATION KYLAH VARGAS Start: 04-06-2020 REMOVE IV KYLAH VARGAS Start: 04-06-2020 TELEMETRY MONITORING KYLAH VARGAS Start: 04-06-2020 VITAL SIGNS KYLAH VARGAS Start: 04-06-2020 Urine test visual color cmprsn meths KYLAH VARGAS Start: 04-06-2020 Urine test visual color cmprsn meths Kylah Irizarry Vargas Work Phone: Start: 04-02-2020 COVID-19 AMBULATORY CHANA THOMAS Start: 04-02-2020 COVID-19 AMBULATORY Jose Miguel Thomas Work Phone: Start: 01-06-2017 DRUG SCREEN, PAIN GENEVA ASHISH Cholecystectomy Prince igles Work Phone: Decompression of median nerve Prince Horvath Work Phone: Comment on above: Bilateral; History of gastroint estinal tract bypass Status post biliopancreatic diversion with duodenal switch Jayshree Nathanael SLAB LIFTING ENGINEER.ENTRY LEVEL Work Phone: History of gastroint estinal tract bypass S/P biliopancreatic diversion with duodenal switch Alex Monsivais RD Work Phone: History of gastroint estinal tract bypass S/P biliopancreatic diversion with duodenal switch Jayshree Nathanael SLAB LIFTING ENGINEER.ENTRY LEVEL Work Phone: History of gastroint estinal tract bypass S/P biliopancreatic diversion with duodenal switch Jayshree Nathanael SLAB LIFTING ENGINEER.ENTRY LEVEL Work Phone: Splenectomy Prince ramírez Work Phone: Plan of Treatment Date Care Activity Detail Author Start: 08-11-2029 DTaP/Tdap/Td vaccine (2 - Td) DTaP/Tdap/Td vaccine (2 - Td) [place] Start: 08-11-2029 Urine microalbumin profile DTaP,Tdap,Td Vaccine (2 - Td or Tdap) [facility] Start: 01-03-2025 Meningococcal (ACWY) vaccine (3 - Risk start after 7 months 2-dose series) Meningococcal (ACWY) vaccine (3 - Risk start after 7 months 2-dose series) [place], [place] Start: 05-05-2024 End: 05-05-2024 Patient encounter procedure Endocrinology BMI Comment on above: 6 mo post op Start: 04-19-2024 End: 04-19-2024 Follow-up encounter 04/19/2024 11:30 AM EDT [facility] General Surgery [address] [place] [address] Amina Nieto MD [address] [place] [address] FOLLOW UP General Surgery Comment on above: FOLLOW UP Start: 02-28-2024 Covid-19 Vaccine ( season) Covid-19 Vaccine ( season) [facility] Start: 02-28-2024 Influenza vaccination [facility] Start: 02-10-2024 End: 02-10-2024 Follow-up encounter 02/10/2024 2:15 PM EDT [facility] Endocrinology BMI [address] [place] [address] Amina Nieto MD [address] [place] [address] follow up Endocrinology BMI Comment on above: follow up Start: 11-18-2023 End: 11-18-2023 ambulatory 11/18/2023 11:30 AM EDT Results Only [facility] [address] [place] [address] [place] [address] [facility] Start: 10-26-2023 End: 01-25-2024 25-hydroxyvitamin D3 [Mass/volume] in Serum or Plasma VITAMIN D 25 HYDROXY Lab Routine S/P biliopancreatic diversion with duodenal switch Impaired intestinal absorption Expected: 10/26/2023 (Approximate), Expires: 01/25/2024 [facility] Work Phone: Comment on above: Expected: 10/26/2023 (Approximate), Expi res: 01/25/2024 Start: 10-26-2023 End: 01-25-2024 Alpha tocopherol [Mass/volume] in Serum or Plasma VITAMIN E/TOCOPHEROL Lab Routine S/P biliopancreatic diversion with duodenal switch Impaired intestinal absorption Expected: 10/26/2023 (Approximate), Expires: 01/25/2024 [facility] Work Phone: Comment on above: Expected: 10/26/2023 (Approximate), Expi res: 01/25/2024 Start: 10-26-2023 End: 01-25-2024 CBC panel - Blood by Automated count CBC Lab Routine S/P biliopancreatic diversion with duodenal switch Open abdominal incision with drainage, subsequent encounter Impaired intestinal absorption Expected: 10/26/2023 (Approximate), Expires: 01/25/2024 [facility] Work Phone: Comment on above: Expected: 10/26/2023 (Approximate), Expi res: 01/25/2024 Start: 10-26-2023 End: 01-25-2024 Cobalamin (Vitamin B12) [Mass/volume] in Serum or Plasma VITAMIN B12 BLOOD Lab Routine S/P biliopancreatic diversion with duodenal switch Impaired intestinal absorption Expected: 10/26/2023 (Approximate), Expires: 01/25/2024 [facility] Work Phone: Comment on above: Expected: 10/26/2023 (Approximate), Expi res: 01/25/2024 Start: 10-26-2023 End: 01-25-2024 Comprehensive metabolic 2000 panel - Serum or Plasma COMP METABOLIC PANEL Lab Routine S/P biliopancreatic diversion with duodenal switch Impaired intestinal absorption Expected: 10/26/2023 (Approximate), Expires: 01/25/2024 [facility] Work Phone: Comment on above: Expected: 10/26/2023 (Approximate), Expi res: 01/25/2024 Start: 10-26-2023 End: 01-25-2024 Ferritin [Mass/volume] in Serum or Plasma FERRITIN BLD Lab Routine S/P biliopancreatic diversion with duodenal switch Impaired intestinal absorption Expected: 10/26/2023 (Approximate), Expires: 01/25/2024 [facility] Work Phone: Comment on above: Expected: 10/26/2023 (Approximate), Expi res: 01/25/2024 Start: 10-26-2023 End: 01-25-2024 Folate [Mass/volume] in Serum or Plasma FOLATE SERUM Lab Routine S/P biliopancreatic diversion with duodenal switch Impaired intestinal absorption Expected: 10/26/2023 (Approximate), Expires: 01/25/2024 [facility] Work Phone: Comment on above: Expected: 10/26/2023 (Approximate), Expi res: 01/25/2024 Start: 10-26-2023 End: 01-25-2024 Hemoglobin A1c in Blood HGB A1C Lab Routine S/P biliopancreatic diversion with duodenal switch Impaired intestinal absorption Expected: 10/26/2023 (Approximate), Expires: 01/25/2024 [facility] Work Phone: Comment on above: Expected: 10/26/2023 (Approximate), Expi res: 01/25/2024 Start: 10-26-2023 End: 01-25-2024 Iron and Iron binding capacity panel - Serum or Plasma IRON + TIBC Lab Routine S/P biliopancreatic diversion with duodenal switch Impaired intestinal absorption Expected: 10/26/2023 (Approximate), Expires: 01/25/2024 [facility] Work Phone: Comment on above: Expected: 10/26/2023 (Approximate), Expi res: 01/25/2024 Start: 10-26-2023 End: 01-25-2024 Parathyrin.intact [Mass/volume] in Serum or Plasma PTH INTACT BLD Lab Routine S/P biliopancreatic diversion with duodenal switch Impaired intestinal absorption Expected: 10/26/2023 (Approximate), Expires: 01/25/2024 [facility] Work Phone: Comment on above: Expected: 10/26/2023 (Approximate), Expi res: 01/25/2024 Start: 10-26-2023 End: 01-25-2024 Retinol [Mass/volume] in Serum or Plasma VITAMIN A/RETINOL Lab Routine S/P biliopancreatic diversion with duodenal switch Impaired intestinal absorption Expected: 10/26/2023 (Approximate), Expires: 01/25/2024 [facility] Work Phone: Comment on above: Expected: 10/26/2023 (Approximate), Expi res: 01/25/2024 Start: 10-26-2023 End: 01-25-2024 VITAMIN B1 (THIAMINE), WHOLE BLOOD VITAMIN B1 (THIAMINE), WHOLE BLOOD Lab Routine S/P biliopancreatic diversion with duodenal switch Impaired intestinal absorption Expected: 10/26/2023 (Approximate), Expires: 01/25/2024 [facility] Work Phone: Comment on above: Expected: 10/26/2023 (Approximate), Expi res: 01/25/2024 Start: 10-26-2023 End: 01-25-2024 VITAMIN K VITAMIN K Lab Routine S/P biliopancreatic diversion with duodenal switch Impaired intestinal absorption Expected: 10/26/2023 (Approximate), Expires: 01/25/2024 [facility] Work Phone: Comment on above: Expected: 10/26/2023 (Approximate), Expi res: 01/25/2024 Start: 10-26-2023 End: 01-25-2024 Zinc [Mass/volume] in Serum or Plasma ZINC BLD Lab Routine S/P biliopancreatic diversion with duodenal switch Impaired intestinal absorption Expected: 10/26/2023 (Approximate), Expires: 01/25/2024 [facility] Work Phone: Comment on above: Expected: 10/26/2023 (Approximate), Expi res: 01/25/2024 Start: 06-29-2023 Depression Assessment Depression Assessment [facility] Start: 02-27-2023 Covid-19 Vaccine () Covid-19 Vaccine () [facility] Start: 02-27-2023 Influenza vaccination [facility] Start: 08-19-2022 Adult depression screening assessment DEPRESSION SCREENING [facility] Start: 06-29-2022 DEPRESSION ASSESSMENT DEPRESSION ASSESSMENT [facility] Start: 05-13-2022 End: 08-23-2022 Coagulation factor VIII activity actual/normal in Platelet poor plasma by Coagulation assay FACTOR VIII:C ASSAY Lab Routine BMI 70 and over, adult (HCC) Gastroesophageal reflux disease, unspecified whether esophagitis present Expected: 05/13/2022 (Approximate), Expires: 08/23/2022 [facility] Work Phone: Comment on above: Expected: 05/13/2022 (Approximate), Expi res: 08/23/2022 Start: 05-13-2022 End: 08-23-2022 CONFIRM BLOOD TYPE CONFIRM BLOOD TYPE Blood Bank Routine BMI 70 and over, adult (HCC) Gastroesophageal reflux disease, unspecified whether esophagitis present Expected: 05/13/2022 (Approximate), Expires: 08/23/2022 [facility] Work Phone: Comment on above: Expected: 05/13/2022 (Approximate), Expi res: 08/23/2022 Start: 05-13-2022 End: 08-23-2022 TYPE AND SCREEN,30 DAY TYPE AND SCREEN,30 DAY Blood Bank Routine BMI 70 and over, adult (HCC) Gastroesophageal reflux disease, unspecified whether esophagitis present Expected: 05/13/2022 (Approximate), Expires: 08/23/2022 [facility] Work Phone: Comment on above: Expected: 05/13/2022 (Approximate), Expi res: 08/23/2022 Start: 03-10-2022 End: 05-10-2022 25-hydroxyvitamin D3 [Mass/volume] in Serum or Plasma VITAMIN D 25 HYDROXY Lab Routine History of sleeve gastrectomy Expected: 03/10/2022, Expires: 05/10/2022 [facility] Work Phone: Comment on above: Expected: 03/10/2022, Expires: Start: 03-10-2022 End: 05-10-2022 CBC W Auto Differential panel - Blood CBC + DIFF Lab Routine History of sleeve gastrectomy Expected: 03/10/2022, Expires: 05/10/2022 [facility] Work Phone: Comment on above: Expected: 03/10/2022, Expires: 2 Start: 03-10-2022 End: 05-10-2022 Cobalamin (Vitamin B12) [Mass/volume] in Serum or Plasma VITAMIN B12 BLOOD Lab Routine History of sleeve gastrectomy Expected: 03/10/2022, Expires: 05/10/2022 [facility] Work Phone: Comment on above: Expected: 03/10/2022, Expires: 2 Start: 03-10-2022 End: 05-10-2022 Comprehensive metabolic 2000 panel - Serum or Plasma COMP METABOLIC PANEL Lab Routine History of sleeve gastrectomy Expected: 03/10/2022, Expires: 05/10/2022 [facility] Work Phone: Comment on above: Expected: 03/10/2022, Expires: 2 Start: 03-10-2022 End: 05-10-2022 Folate [Mass/volume] in Serum or Plasma FOLATE SERUM Lab Routine History of sleeve gastrectomy Expected: 03/10/2022, Expires: 05/10/2022 [facility] Work Phone: Comment on above: Expected: 03/10/2022, Expires: 2 Start: 03-10-2022 End: 05-10-2022 Iron and Iron binding capacity panel - Serum or Plasma IRON + TIBC Lab Routine History of sleeve gastrectomy Expected: 03/10/2022, Expires: 05/10/2022 [facility] Work Phone: Comment on above: Expected: 03/10/2022, Expires: 2 Start: 03-10-2022 End: 05-10-2022 Prealbumin [Mass/volume] in Serum or Plasma PREALBUMIN BLD Lab Routine History of sleeve gastrectomy Expected: 03/10/2022, Expires: 05/10/2022 [facility] Work Phone: Comment on above: Expected: 03/10/2022, Expires: 2 Start: 03-10-2022 End: 05-10-2022 VITAMIN B1 (THIAMINE), WHOLE BLOOD VITAMIN B1 (THIAMINE), WHOLE BLOOD Lab Routine History of sleeve gastrectomy Expected: 03/10/2022, Expires: 05/10/2022 [facility] Work Phone: Comment on above: Expected: 03/10/2022, Expires: 2 Start: 02-27-2022 Influenza vaccination INFLUENZA (#1) [facility] Start: 12-01-2021 COVID-19 VACCINE (3 - Booster for Pfizer series) COVID-19 VACCINE (3 - Booster for Pfizer series) [facility] Start: 11-04-2021 End: 01-04-2022 CBC W Auto Differential panel - Blood CBC + DIFF Lab Routine History of sleeve gastrectomy Expected: 11/04/2021, Expires: 01/04/2022 [facility] Work Phone: Comment on above: Expected: 11/04/2021, Expires: 2 Start: 11-04-2021 End: 01-04-2022 Comprehensive metabolic 2000 panel - Serum or Plasma COMP METABOLIC PANEL Lab Routine History of sleeve gastrectomy Expected: 11/04/2021, Expires: 01/04/2022 [facility] Work Phone: Comment on above: Expected: 11/04/2021, Expires: 2 Start: 11-04-2021 End: 01-04-2022 Folate [Mass/volume] in Serum or Plasma FOLATE SERUM Lab Routine History of sleeve gastrectomy Expected: 11/04/2021, Expires: 01/04/2022 [facility] Work Phone: Comment on above: Expected: 11/04/2021, Expires: 2 Start: 11-04-2021 End: 01-04-2022 IRON + TIBC IRON + TIBC Lab Routine History of sleeve gastrectomy Expected: 11/04/2021, Expires: 01/04/2022 [facility] Work Phone: Comment on above: Expected: 11/04/2021, Expires: 2 Start: 11-04-2021 End: 01-04-2022 LIPID PANEL BASIC LIPID PANEL BASIC Lab Routine History of sleeve gastrectomy Expected: 11/04/2021, Expires: 01/04/2022 [facility] Work Phone: Comment on above: Expected: 11/04/2021, Expires: 2 Start: 11-04-2021 End: 01-04-2022 Prealbumin [Mass/volume] in Serum or Plasma PREALBUMIN BLD Lab Routine History of sleeve gastrectomy Expected: 11/04/2021, Expires: 01/04/2022 [facility] Work Phone: Comment on above: Expected: 11/04/2021, Expires: 2 Start: 11-04-2021 End: 01-04-2022 VITAMIN B1 (THIAMINE), WHOLE BLOOD VITAMIN B1 (THIAMINE), WHOLE BLOOD Lab Routine History of sleeve gastrectomy Expected: 11/04/2021, Expires: 01/04/2022 [facility] Work Phone: Comment on above: Expected: 11/04/2021, Expires: 2 Start: 11-04-2021 End: 01-04-2022 VITAMIN B12 BLOOD VITAMIN B12 BLOOD Lab Routine History of sleeve gastrectomy Expected: 11/04/2021, Expires: 01/04/2022 [facility] Work Phone: Comment on above: Expected: 11/04/2021, Expires: 2 Start: 11-04-2021 End: 01-04-2022 VITAMIN D 25 HYDROXY VITAMIN D 25 HYDROXY Lab Routine History of sleeve gastrectomy Expected: 11/04/2021, Expires: 01/04/2022 [facility] Work Phone: Comment on above: Expected: 11/04/2021, Expires: 2 Start: 09-23-2021 End: 11-23-2021 CBC panel - Blood by Automated count CBC Lab Routine Gastroesophageal reflux disease, unspecified whether esophagitis present Class 3 severe obesity with serious comorbidity and body mass index (BMI) of 60.0 to 69.9 in adult, unspecified obesity type (HCC) Postoperative malabsorption Expected: 09/23/2021, Expires: 11/23/2021 [facility] Work Phone: Comment on above: Expected: 09/23/2021, Expires: 2 Start: 09-23-2021 End: 11-23-2021 Choriogonadotropin ( test) [Presence] in Urine HCG QUAL UR Lab Routine Gastroesophageal reflux disease, unspecified whether esophagitis present Class 3 severe obesity with serious comorbidity and body mass index (BMI) of 60.0 to 69.9 in adult, unspecified obesity type (HCC) Postoperative malabsorption Expected: 09/23/2021, Expires: 11/23/2021 [facility] Work Phone: Comment on above: Expected: 09/23/2021, Expires: 2 Start: 09-23-2021 End: 11-23-2021 Comprehensive metabolic 2000 panel - Serum or Plasma COMP METABOLIC PANEL Lab Routine Gastroesophageal reflux disease, unspecified whether esophagitis present Class 3 severe obesity with serious comorbidity and body mass index (BMI) of 60.0 to 69.9 in adult, unspecified obesity type (HCC) Postoperative malabsorption Expected: 09/23/2021, Expires: 11/23/2021 [facility] Work Phone: Comment on above: Expected: 09/23/2021, Expires: 2 Start: 09-23-2021 End: 11-23-2021 FERRITIN BLD FERRITIN BLD Lab Routine Gastroesophageal reflux disease, unspecified whether esophagitis present Class 3 severe obesity with serious comorbidity and body mass index (BMI) of 60.0 to 69.9 in adult, unspecified obesity type (HCC) Postoperative malabsorption Expected: 09/23/2021, Expires: 11/23/2021 [facility] Work Phone: Comment on above: Expected: 09/23/2021, Expires: 2 Start: 09-23-2021 End: 11-23-2021 Folate [Mass/volume] in Serum or Plasma FOLATE SERUM Lab Routine Gastroesophageal reflux disease, unspecified whether esophagitis present Class 3 severe obesity with serious comorbidity and body mass index (BMI) of 60.0 to 69.9 in adult, unspecified obesity type (HCC) Postoperative malabsorption Expected: 09/23/2021, Expires: 11/23/2021 [facility] Work Phone: Comment on above: Expected: 09/23/2021, Expires: 2 Start: 09-23-2021 End: 11-23-2021 Hemoglobin A1c/Hemoglobin.total in Blood HGB A1C Lab Routine Gastroesophageal reflux disease, unspecified whether esophagitis present Class 3 severe obesity with serious comorbidity and body mass index (BMI) of 60.0 to 69.9 in adult, unspecified obesity type (HCC) Postoperative malabsorption Expected: 09/23/2021, Expires: 11/23/2021 [facility] Work Phone: Comment on above: Expected: 09/23/2021, Expires: 2 Start: 09-23-2021 End: 11-23-2021 IRON + TIBC IRON + TIBC Lab Routine Gastroesophageal reflux disease, unspecified whether esophagitis present Class 3 severe obesity with serious comorbidity and body mass index (BMI) of 60.0 to 69.9 in adult, unspecified obesity type (HCC) Postoperative malabsorption Expected: 09/23/2021, Expires: 11/23/2021 [facility] Work Phone: Comment on above: Expected: 09/23/2021, Expires: 2 Start: 09-23-2021 End: 11-23-2021 LIPID PANEL BASIC LIPID PANEL BASIC Lab Routine Gastroesophageal reflux disease, unspecified whether esophagitis present Class 3 severe obesity with serious comorbidity and body mass index (BMI) of 60.0 to 69.9 in adult, unspecified obesity type (HCC) Postoperative malabsorption Expected: 09/23/2021, Expires: 11/23/2021 [facility] Work Phone: Comment on above: Expected: 09/23/2021, Expires: 2 Start: 09-23-2021 End: 11-23-2021 NICOTINE & METAB, UR NICOTINE & METAB, UR Lab Routine Gastroesophageal reflux disease, unspecified whether esophagitis present Class 3 severe obesity with serious comorbidity and body mass index (BMI) of 60.0 to 69.9 in adult, unspecified obesity type (HCC) Postoperative malabsorption Expected: 09/23/2021, Expires: 11/23/2021 [facility] Work Phone: Comment on above: Expected: 09/23/2021, Expires: 2 Start: 09-23-2021 End: 11-23-2021 PTH INTACT BLD PTH INTACT BLD Lab Routine Gastroesophageal reflux disease, unspecified whether esophagitis present Class 3 severe obesity with serious comorbidity and body mass index (BMI) of 60.0 to 69.9 in adult, unspecified obesity type (HCC) Postoperative malabsorption Expected: 09/23/2021, Expires: 11/23/2021 [facility] Work Phone: Comment on above: Expected: 09/23/2021, Expires: 2 Start: 09-23-2021 End: 11-23-2021 Thyrotropin [Units/volume] in Serum or Plasma TSH BLD Lab Routine Gastroesophageal reflux disease, unspecified whether esophagitis present Class 3 severe obesity with serious comorbidity and body mass index (BMI) of 60.0 to 69.9 in adult, unspecified obesity type (HCC) Postoperative malabsorption Expected: 09/23/2021, Expires: 11/23/2021 [facility] Work Phone: Comment on above: Expected: 09/23/2021, Expires: 2 Start: 09-23-2021 End: 11-23-2021 TOX SCREEN ROUT UR TOX SCREEN ROUT UR Lab Routine Gastroesophageal reflux disease, unspecified whether esophagitis present Class 3 severe obesity with serious comorbidity and body mass index (BMI) of 60.0 to 69.9 in adult, unspecified obesity type (HCC) Postoperative malabsorption Expected: 09/23/2021, Expires: 11/23/2021 [facility] Work Phone: Comment on above: Expected: 09/23/2021, Expires: 2 Start: 09-23-2021 End: 11-23-2021 VITAMIN B1 (THIAMINE), WHOLE BLOOD VITAMIN B1 (THIAMINE), WHOLE BLOOD Lab Routine Gastroesophageal reflux disease, unspecified whether esophagitis present Class 3 severe obesity with serious comorbidity and body mass index (BMI) of 60.0 to 69.9 in adult, unspecified obesity type (HCC) Postoperative malabsorption Expected: 09/23/2021, Expires: 11/23/2021 [facility] Work Phone: Comment on above: Expected: 09/23/2021, Expires: 2 Start: 09-23-2021 End: 11-23-2021 VITAMIN B12 BLOOD VITAMIN B12 BLOOD Lab Routine Gastroesophageal reflux disease, unspecified whether esophagitis present Class 3 severe obesity with serious comorbidity and body mass index (BMI) of 60.0 to 69.9 in adult, unspecified obesity type (HCC) Postoperative malabsorption Expected: 09/23/2021, Expires: 11/23/2021 [facility] Work Phone: Comment on above: Expected: 09/23/2021, Expires: 2 Start: 09-23-2021 End: 11-23-2021 VITAMIN D 25 HYDROXY VITAMIN D 25 HYDROXY Lab Routine Gastroesophageal reflux disease, unspecified whether esophagitis present Class 3 severe obesity with serious comorbidity and body mass index (BMI) of 60.0 to 69.9 in adult, unspecified obesity type (HCC) Postoperative malabsorption Expected: 09/23/2021, Expires: 11/23/2021 [facility] Work Phone: Comment on above: Expected: 09/23/2021, Expires: 2 Start: 08-28-2021 COVID-19 VACCINE (3 - Booster for Pfizer series) COVID-19 VACCINE (3 - Booster for Pfizer series) [facility] Start: 08-28-2021 COVID-19 VACCINE (3 - Pfizer series) COVID-19 VACCINE (3 - Pfizer series) [facility] Start: 06-29-2021 DEPRESSION ASSESSMENT DEPRESSION ASSESSMENT [facility] Start: 05-30-2021 End: 05-30-2021 Nutrition therapy 05/30/2021 Clinical Support Encounter Nutrition and Dietetics Angelo Cedillo, RD [address] [place] [id number] [facility] Start: 05-17-2021 End: 05-17-2022 B12/folate level B12 & FOLATE Lab Routine S/P laparoscopic sleeve gastrectomy TONEY on CPAP Morbid obesity with body mass index of 50 or higher Gastroesophageal reflux disease, unspecified whether esophagitis present Other intestinal malabsorption Expected: 05/17/2021, Expires: 05/17/2022 [facility] Comment on above: Expected: 05/17/2021, Expires: 2 Start: 05-17-2021 End: 05-17-2022 Complete blood count with white cell differential, automated CBC, EDIF, PLATELET Lab Routine S/P laparoscopic sleeve gastrectomy TONEY on CPAP Morbid obesity with body mass index of 50 or higher Gastroesophageal reflux disease, unspecified whether esophagitis present Other intestinal malabsorption Expected: 05/17/2021, Expires: 05/17/2022 [facility] Comment on above: Expected: 05/17/2021, Expires: 2 Start: 05-17-2021 End: 05-17-2022 Comprehensive metabolic 2000 panel - Serum or Plasma COMPREHENSIVE METABOLIC PANEL Lab Routine S/P laparoscopic sleeve gastrectomy TONEY on CPAP Morbid obesity with body mass index of 50 or higher Gastroesophageal reflux disease, unspecified whether esophagitis present Other intestinal malabsorption Expected: 05/17/2021, Expires: 05/17/2022 [facility] Comment on above: Expected: 05/17/2021, Expires: 2 Start: 05-17-2021 End: 05-17-2022 Diagnostic radiography of chest, combined PA and lateral XR CHEST PA AND LATERAL Imaging Routine S/P laparoscopic sleeve gastrectomy TONEY on CPAP Morbid obesity with body mass index of 50 or higher Gastroesophageal reflux disease, unspecified whether esophagitis present Other intestinal malabsorption Expected: 05/17/2021, Expires: 05/17/2022 [facility] Comment on above: Expected: 05/17/2021, Expires: 2 Start: 05-17-2021 End: 05-17-2022 Fluoroscopy of upper gastrointestinal tract XR FLUORO UPPER GI, WATER SOLUBLE AND/OR BARIUM CONTRAST Imaging Routine S/P laparoscopic sleeve gastrectomy Gastroesophageal reflux disease, unspecified whether esophagitis present Expected: 05/17/2021, Expires: 05/17/2022 [facility] Comment on above: Expected: 05/17/2021, Expires: 2 Start: 05-17-2021 End: 05-17-2022 Hemoglobin A1c/Hemoglobin.total in Blood HEMOGLOBIN A1C Lab Routine S/P laparoscopic sleeve gastrectomy TONEY on CPAP Morbid obesity with body mass index of 50 or higher Gastroesophageal reflux disease, unspecified whether esophagitis present Other intestinal malabsorption Expected: 05/17/2021, Expires: 05/17/2022 [facility] Comment on above: Expected: 05/17/2021, Expires: 2 Start: 05-17-2021 End: 05-17-2022 IRON/IRON BINDING/TRANSFERRIN IRON/IRON BINDING/TRANSFERRIN Lab Routine S/P laparoscopic sleeve gastrectomy TONEY on CPAP Morbid obesity with body mass index of 50 or higher Gastroesophageal reflux disease, unspecified whether esophagitis present Other intestinal malabsorption Expected: 05/17/2021, Expires: 05/17/2022 [facility] Comment on above: Expected: 05/17/2021, Expires: 2 Start: 05-17-2021 End: 05-17-2022 LIPID PANEL W CALCULATED LDL LIPID PANEL W CALCULATED LDL Lab Routine S/P laparoscopic sleeve gastrectomy TONEY on CPAP Morbid obesity with body mass index of 50 or higher Gastroesophageal reflux disease, unspecified whether esophagitis present Other intestinal malabsorption Expected: 05/17/2021, Expires: 05/17/2022 [facility] Comment on above: Expected: 05/17/2021, Expires: 2 Start: 05-17-2021 End: 05-17-2022 NOVEL CORONAVIRUS LAB 1 - NASOPHARYNGEAL NOVEL CORONAVIRUS LAB 1 - NASOPHARYNGEAL Microbiology STAT Screening for viral disease Expected: 05/17/2021, Expires: 05/17/2022 [facility] Comment on above: Expected: 05/17/2021, Expires: 2 Start: 05-17-2021 End: 05-17-2022 Standard ECG ECG ECG Routine S/P laparoscopic sleeve gastrectomy TONEY on CPAP Morbid obesity with body mass index of 50 or higher Gastroesophageal reflux disease, unspecified whether esophagitis present Other intestinal malabsorption Expected: 05/17/2021, Expires: 05/17/2022 [facility] Comment on above: Expected: 05/17/2021, Expires: 2 Start: 05-17-2021 End: 05-17-2022 Thyrotropin [Units/volume] in Serum or Plasma TSH Lab Routine S/P laparoscopic sleeve gastrectomy TONEY on CPAP Morbid obesity with body mass index of 50 or higher Gastroesophageal reflux disease, unspecified whether esophagitis present Other intestinal malabsorption Expected: 05/17/2021, Expires: 05/17/2022 [facility] Comment on above: Expected: 05/17/2021, Expires: 2 Start: 05-17-2021 End: 05-17-2022 VITAMIN B1 VITAMIN B1 Lab Routine S/P laparoscopic sleeve gastrectomy TONEY on CPAP Morbid obesity with body mass index of 50 or higher Gastroesophageal reflux disease, unspecified whether esophagitis present Other intestinal malabsorption Expected: 05/17/2021, Expires: 05/17/2022 [facility] Comment on above: Expected: 05/17/2021, Expires: 2 Start: 05-17-2021 End: 05-17-2022 VITAMIN D (25-HYDROXY,TOTAL) VITAMIN D (25-HYDROXY,TOTAL) Lab Routine S/P laparoscopic sleeve gastrectomy TONEY on CPAP Morbid obesity with body mass index of 50 or higher Gastroesophageal reflux disease, unspecified whether esophagitis present Other intestinal malabsorption Expected: 05/17/2021, Expires: 05/17/2022 [facility] Comment on above: Expected: 05/17/2021, Expires: 2 Start: 05-17-2021 End: 05-17-2022 ZINC, SERUM ZINC, SERUM Lab Routine S/P laparoscopic sleeve gastrectomy TONEY on CPAP Morbid obesity with body mass index of 50 or higher Gastroesophageal reflux disease, unspecified whether esophagitis present Other intestinal malabsorption Expected: 05/17/2021, Expires: 05/17/2022 [facility] Comment on above: Expected: 05/17/2021, Expires: 2 Start: 02-27-2021 Influenza vaccination INFLUENZA VACCINE (#1) [facility] Start: 04-06-2020 End: 04-06-2021 FL UGI FL UGI Imaging Routine S/P laparoscopic sleeve gastrectomy Expected: 04/06/2020, Expires: 04/06/2021 [place] Comment on above: Expected: 04/06/2020, Expires: 1 Start: 02-28-2020 Influenza vaccination Flu vaccine (#1) [place] Start: 02-27-2020 Pneumococcal 0-64 years Vaccine (2 of 3 - PPSV23) Pneumococcal 0-64 years Vaccine (2 of 3 - PPSV23) [place] Start: 08-31-2019 Hepatitis B Vaccine (3 of 3 - 19+ 3-dose series) Hepatitis B Vaccine (3 of 3 - 19+ 3-dose series) [facility] Start: 2015 HPV TESTING HPV TESTING [facility] Start: 2015 Screening for malignant neoplasm of cervix HPV Testing [facility] Start: 10-16-2011 PAP TESTING PAP TESTING [facility] Start: 10-16-2011 Screening for malignant neoplasm of cervix Pap Testing [facility] Start: 10-15-2009 Screening for malignant neoplasm of cervix Cervical Cancer Screening [facility] Start: 2006 Screening for malignant neoplasm of cervix [facility] Start: 2004 Third diphtheria, tetanus and acellular pertussis (DTaP) vaccination TDAP (ADULT) [facility] Start: 2004 Urine microalbumin profile DTAP,TDAP,TD (1 - Tdap) [facility] Start: 2003 Anxiety Screening Anxiety Screening [facility] Start: 2003 Depression Screening Depression Screening [facility] Start: 2003 HEPATITIS C SCREENING HEPATITIS C SCREENING [facility] Start: 2003 Hepatitis C screening Hepatitis C Screening [facility] Start: 2003 HIV SCREENING HIV SCREENING [facility] Start: 2003 HIV screening HIV Screening [facility] Start: 2003 Tetanus vaccination TETANUS [facility] Start: 2000 HIV screening [facility] Start: 1995 Meningococcal B vaccine (1 of 4 - Increased Risk Bexsero 2-dose series) Meningococcal B vaccine (1 of 4 - Increased Risk Bexsero 2-dose series) [place] Start: 1990 COVID-19 VACCINE (1) COVID-19 VACCINE (1) [facility] Start: 1986 Varicella vaccine (1 of 2 - 2-dose childhood series) Varicella vaccine (1 of 2 - 2-dose childhood series) [place] Start: 1985 HEPATITIS B (1 of 3 - 3-dose series) HEPATITIS B (1 of 3 - 3-dose series) [facility] Start: 1985 Hepatitis C antibody, confirmatory test HEPATITIS C VIRUS SCREENING [facility] End: 04-02-2020 COVID-19 Ambulatory COVID-19 Ambulatory Lab Routine Preop testing 1 Occurrences starting 04/02/2020 until 04/02/2020 [place] Comment on above: 1 Occurrences starting 04/02/2020 until 04/02/2020 End: 12-04-2022 Ct abdomen & pelvis w/contrast material CT ABD/PEL W IVCON Radiology Routine History of sleeve gastrectomy Gastric fistula 1 Occurrences starting 11/04/2021 until 12/04/2022 [facility] Work Phone: Comment on above: 1 Occurrences starting 11/04/2021 until 12/04/2022 End: 09-23-2022 ECG COMPLETE ECG COMPLETE ECG Routine TONEY on CPAP Gastroesophageal reflux disease, unspecified whether esophagitis present Class 3 severe obesity with serious comorbidity and body mass index (BMI) of 60.0 to 69.9 in adult, unspecified obesity type (HCC) Postoperative malabsorption 1 Occurrences starting 09/23/2021 until 09/23/2022 [facility] Work Phone: Comment on above: 1 Occurrences starting 09/23/2021 until 09/23/2022 End: 05-31-2023 ECG COMPLETE ECG COMPLETE ECG Routine Abnormal weight gain Preop testing Snoring Sleep-disordered breathing Fatigue, unspecified type S/P bariatric surgery BMI 70 and over, adult (HCC) 1 Occurrences starting 06/04/2022 until 05/31/2023 [facility] Work Phone: Comment on above: 1 Occurrences starting 06/04/2022 until 05/31/2023 End: 03-10-2024 ECG COMPLETE ECG COMPLETE ECG Routine Pre-op evaluation Morbid obesity with body mass index of 60.0-69.9 in adult ([facility]) Gastroesophageal reflux disease, unspecified whether esophagitis present TONEY on CPAP Bipolar affective disorder, remission status unspecified (HCC) Thrombocytosis Migraine without status migrainosus, not intractable, unspecified migraine type 1 Occurrences starting 03/10/2023 until 03/10/2024 [facility] Work Phone: Comment on above: 1 Occurrences starting 03/10/2023 until 03/10/2024 Oxygen therapy [[facility] Data Set] Initiate Oxygen Therapy Protocol Respiratory Care Routine Daily until discontinued starting 04/06/2020 [facility] on above: Daily until discontinued starting 2019 Phase I & II - meter ed glucose Phase I & II - metered glucose Point of Care Testing Routine As Needed until discontinued starting 04/06/2020 [facility] Comment on above: As Needed until discontinued starting End: 05-31-2023 Polysomnogram POLYSOMNOGRAM (PSG) Procedures Routine Abnormal weight gain Preop testing Snoring Sleep-disordered breathing Fatigue, unspecified type S/P bariatric surgery BMI 70 and over, adult ([facility]) 1 Occurrences starting 06/04/2022 until 05/31/2023 [facility] Work Phone: Comment on above: 1 Occurrences [...] malabsorption 1 Occurrences starting 09/23/2021 until 10/23/2022 [facility] Work Phone: Comment on above: 1 Occurrences starting 09/23/2021 until 10/23/2022 End: 05-18-2023 Radiologic exam chest 2 views XR CHEST 2V FRONTAL/LAT Radiology Routine BMI 70 and over, adult ([facility]) Gastroesophageal reflux disease, unspecified whether esophagitis present 1 Occurrences starting 04/18/2022 until 05/18/2023 [facility] Work Phone: Comment on above: 1 Occurrences starting 04/18/2022 until 05/18/2023 End: 07-01-2023 Radiologic exam chest 2 views XR CHEST 2V FRONTAL/LAT Radiology Routine Abnormal weight gain Preop testing Snoring Sleep-disordered breathing Fatigue, unspecified type S/P bariatric surgery BMI 70 and over, adult (HCC) 1 Occurrences starting 06/04/2022 until 07/01/2023 [facility] Work Phone: Comment on above: 1 Occurrences starting 06/04/2022 until 07/01/2023 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 Procedures Routine BMI 70 and over, adult (HCC) Gastroesophageal reflux disease, unspecified whether esophagitis present Ordered: 04/18/2022 [facility] Work Phone: Comment on above: Ordered: 04/18/2022 Surgical Pathology Surgical Path ology Lab Routine Release Upon Ordering for 1 Occurrences starting 04/06/2020 [place] Comment on above: Release Upon Ordering [...] (HCC) 1 Occurrences starting 09/23/2021 until 10/23/2022 [facility] Work Phone: Comment on above: 1 Occurrences starting 09/23/2021 until 10/23/2022 End: 12-04-2022 XR UPPER GI SINGLE CONTRAST XR UPPER GI SINGLE CONTRAST Radiology Routine History of sleeve gastrectomy Gastric fistula 1 Occurrences starting 11/04/2021 until 12/04/2022 [facility] Work Phone: Comment on above: 1 Occurrences starting 11/04/2021 until 12/04/2022 [facility] Immunizations Immunization Date Immunization Notes Care Provider Octavio camacho 06-13-2021 Influenza, injectabl e, Madin [place] Canine Kidney, preservative free, quadrivalent Pacc 2 Work Phone: [facility] 06-13-2021 influenza virus vacc ine, unspecified formulation Pacc 2 Work Phone: [facility] 01-04-2020 meningococcal oligosaccharide (groups A, C, Y and W-135) diphtheria toxoid conjugate vaccine (MCV4O) Pacc 2 Work Phone: [facility] 01-04-2020 meningococcal vaccin e of unknown formulation and unknown serogroups [place], [place] 01-02-2020 pneumococcal conjuga te vaccine, 13 valent Pacc 2 Work Phone: [facility] 01-02-2020 tuberculin skin test ; purified protein derivative solution, intradermal Amina Nieto MD Work Phone: [facility] 12-26-2019 tuberculin skin test ; purified protein derivative solution, intradermal Amina Nieto MD Work Phone: [facility] 08-11-2019 tetanus toxoid, redu herbie diphtheria toxoid, and acellular pertussis vaccine, adsorbed Pacc 2 Work Phone: [facility] 06-20-2019 influenza, injectabl e, quadrivalent, preservative free Pacc 2 Work Phone: [facility] 06-07-2019 influenza, injectabl e, quadrivalent, preservative free Pacc 2 Work Phone: [facility] 05-30-2019 influenza, high dose seasonal, preservative-free Pacc 2 Work Phone: [facility] 04-04-2019 hepatitis B vaccine, adult dosage Pac 2 Work Phone: [facility] 03-02-2019 hepatitis B vaccine, adult dosage Pacc 2 Work Phone: [facility] 05-12-2017 influenza, injectabl e, quadrivalent, preservative free Pac 2 Work Phone: [facility] 04-27-2015 influenza, injectabl e, madin [place] canine kidney, preservative free Pac 2 Work Phone: [facility] 12-18-2014 haemophilus influenz ae type b vaccine, PRP-T conjugate Pac 2 Work Phone: [facility] 12-18-2014 meningococcal oligosaccharide (groups A, C, Y and W-135) diphtheria toxoid conjugate vaccine (MCV4O) Pac 2 Work Phone: [facility] Payers Date Payer Category Payer Medicaid [id number] 2022 Self-pay [id number] 2020 Medicaid [id number] 2020 Unknown [id number] [id number] 2014 Unknown [id number] 1985 Unknown [id number] 2.16.840.1.454507.3.579.2.177 1985 Unknown [id number] 2.16.840.1.427802.3.579.2.173 1985 Unknown [id number] 2.16.840.1.647359.3.579.2.175 1985 Unknown [id number] 2.16.840.1.839036.3.579.2.593 1985 Unknown [id number] 2.16.840.1.454240.3.579.2.593 1985 Unknown [id number] 2.16.840.1.925172.3.579.2.593 1985 Unknown [id number] 2.16.840.1.532918.3.579.2.593 1985 Unknown [id number] 2.16.840.1.425857.3.579.2.593 1985 Unknown [id number] 2.16.840.1.950437.3.579.2.593 1985 Unknown [id number] 2.16.840.1.195170.3.579.2.593 1985 Unknown [id number] 2.16.840.1.273327.3.579.2.593 1985 Unknown [id number] 2.16.840.1.509737.3.579.2.128 1985 Unknown [id number] 2.16.840.1.916860.3.579.2.1285 1985 Unknown [id number] 2.16.840.1.101498.3.579.2.1285 1985 Unknown [id number] 2.16.840.1.651304.3.579.2.1285 1985 Unknown [id number] 2.16840.1.912405.3.579.2.1285 1985 Unknown [id number] 2.16.840.1.505572.3.579.2.1285 1985 Unknown [id number] 2.16.840.1.327849.3.579.2.1285 1985 Unknown [id number] 2.16.840.1.588332.3.579.2.1285 1985 Unknown [id number] 2.16.840.1.072849.3.579.2.1285 1985 Unknown [id number] 2.16.840.1.195758.3.579.2.1259 1985 Unknown [id number] 2.16.840.1.874852.3.579.2.9 1985 Unknown [id number] 2.16.840.1.390898.3.579.2.9 1985 Unknown [id number] 2.16.840.1.664473.3.579.2.9 1985 Unknown [id number] 2.16.840.1.566340.3.579.2.9 1985 Unknown [id number] 2.16.840.1.666966.3.579.2.9 1985 Unknown [id number] 2.16.840.1.551433.3.579.2.9 1985 Unknown [id number] 2.16.840.1.727028.3.579.2.9 1985 Unknown [id number] 2.16.840.1.705197.3.579.2.9 1985 Unknown [id number] 2.16.840.1.867674.3.579.2.1259 1959 Unknown [id number] 2.16.840.1.364780.19 Unknown [employer] MEDICAID Unknown [id number] 2.16.840.1.228754.3.579.2.531 Unknown [id number] 2.16.840.1.398338.3.579.2.531 Social History Date Type Detail Facility Start: 04-06-2020 End: 03-10-2023 Tobacco smoking status WYIS Former smoker [facility] Start: 04-06-2020 Tobacco use and exposure Former user [place] Start: 04-06-2020 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 (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) [place], [place] Start: 1985 Sex Assigned At Not on file [place], [place] Start: 10-25-2021 End: 02-12-2022 Exposure to SARS-CoV-2 (event) Not sure [facility] [place], [place] Start: 05-17-2021 Tobacco smoking stat us NHIS Never smoked tobacco [facility] Start: 05-17-2021 End: 03-10-2023 Tobacco use and exposure Smokeless tobacco non-user [facility] Start: 05-17-2021 Alcohol intake Lifetime non-d suresh (finding) [facility] Start: 12-27-2008 End: 12-27-2013 History of tobacco use Current smoker [facility] Start: 12-27-2008 End: 12-27-2013 History of tobacco use Cigarette Smoker [facility] Start: 05-06-2019 End: 01-15-2023 Cigarettes smoked current (pack per day) - Reported 0.5 [facility] 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; Start: 09-23-2021 End: 11-02-2023 Alcohol intake Ex-drinker (finding) [facility] Start: 09-23-2021 History SDOH Alcohol Comment None since 2012 [facility] Start: 1985 Sex Assigned At Female [facility] Start: 12-05-2021 End: 01-15-2023 Sex Assigned At [facility] Adult Depression Screening Assessment 0 [facility] Start: 07-09-2021 Gender identity Identifies as female gender (finding) [facility] Start: 07-09-2021 Sexual orientation Heterosexual (davide vital) [facility] Has the [employer], [employer], oil, or water company threatened to shut off services in your home in past 12Mo No [facility] (I/We) worried wheth er (my/our) food would run out before (I/we) got money to buy more. Never true [facility] Clinical Notes 05-17-2021 to 11-03-2023 Amina Nieto MD - 11/03/2023 11:00 AM EDTPatient Jayshree Rizvi APRN.KATTY - 11/02/2023 12:52 PM EDTPatient Rupinder Forrester RD - 11/02/2023 9:45 AM EDTPatient Instructions Note Date & Type Note Facility 11-03-2023 History of Presen t illness Narrative I have communicated my name and active licensure. The patient's identity and physical location were verified at the time of this visit. Either the patient or their legal telemarketing sales representative has been informed of the risks and benefits of -- and alternatives to -- treatment through a remote evaluation and consents to proceed with the evaluation remotely. Name: Susi Ortiz Index Surgery Date of Surgery: 08/04/2023 Surgeon: Joe Granda MD Surgical Procedure: GASTRECTOMY, GASTRIC RESTRICTIVE PARTIAL (50 TO 100 CM COMMON CHANNEL) TO LIMIT ABSORPTION Pre-surgical weight: 176 kg (388 lb 0.2 oz) Override Index Surgery Information? No Other Bariatric Surgeries Date of Surgery Surgeon Procedure 03/31/2023 Joe Granda MD LAPAROSCOPY ENTEROLYSIS Visit: 3 months Today's Visit: Wt 167.4 kg (369 lb) BMI 63.34 kg/m2 BMI 63.34 kg/(m^2) Last Visit: Wt: 167.4 kg (369 lb) BMI: 63.34 kg/(m^2) Total weight loss: 8.623 kg (19 lb 0.2 oz) [place] weight: 66.1 kg (145 lb 10.6 oz) Excess weight: 109.9 kg (242 lb 5.6 oz) % of excess body weight lost: 8.623 kg (19 lb 0.2 oz) (7.84% of excess weight loss) COMPLICATIONS SINCE LAST VISIT?: NONE DIET INTAKE: tolerates Phase V diet See recent Car Racer appointment -B: protein shake, -snack: [place] bkft -L: ham and cheese -roll up -snack: [place] -D: chicken -snacks: -beverages: she gets enough fluids in; advised to avoid skipping meals and to try healthy protein shake as a meal replacement; also advised to avoid carbonated/sugary/caloric/alcoho lic beverages DAILY SUPPLEMENTS: Calcium: Calcium Citrate w/ vitamin D (1200 - 1500mg) Multivitamin & Minerals: takes DS with ADEK plus iron Iron Supplement: included in multi-vitamin Vitamin B12: included in multivitamin Vitamin D3: included in multi-vitamin Other: N/A EXERCISE: walks 30 min day, 2x a day; suggested adding strength training a couple of times per week Current Outpatient Medications Medication Sig Zinc Acetate, Oral, 25 mg (zinc) cap Take 1 capsule by mouth once daily. Cholecalciferol, Vitamin D3, 25 mcg (1,000 unit) cap Take 2 capsules by mouth once daily. ferrous sulfate 325 mg (65 mg iron) tablet Take 1 tablet by mouth once daily. omeprazole (PRILOSEC) 40 mg capsule Take 1 [...] Take 60 mg by mouth once daily. No current facility-administered medications for this visit. 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 Granda -concerned for weight loss stall-consider Metformin, Top as options and possibly phentermine, Wegovy or Zepbound in future, around 6 month postop gt. -continue follow up with BMI Nutrition and Psychology -Metformin-some common s/e/r/b discussed and patient is interested in trial. Sent to pharmacy on file and to follow up in approximately 3 months for her 6 month postop. DISPOSITION: Return 3 month to Post-op follow up/ individual office visit EDUCATION: Encouraged to continue with healthy lifestyle changes and incorporate cardiovascular and resistance training, Discussed weight loss expectations after bariatric and metabolic surgery, or Discussed importance of protein intake as per the RDN note REFERRALS: N/A LABS: Today: See Epic Orders In 3 months: CBC W DIFF, CMP, Vitamin B1, Vitamin B12, Folate, PTH Intact, Vitamin D25OH, Iron/TIBC/Ferritin, Lipids, HBA1C, and See Epic Orders Amina Nieto MD I spent a total of 30 minutes on the date of the service which included preparing to see the patient, [id number] patient care, obtaining and/or reviewing separately obtained history, counseling and educating the patient/family/caregiver, ordering medications, tests, or procedures, and care coordination (not separately reported). (OTHER): -11/02/23 OV BMI/MTanya Huffman -11/02/23 OV BMI/Nutrition/ATanya Colbert CARDIAC: -Procedure Date : Mar 10 2023 EKG Diagnosis: NORMAL SINUS RHYTHM NORMAL ECG documented in this encounter [facility] 11-03-2023 Note HNO ID: [id number] Author: AMINA NIETO MD Service: ? Author Type: Physician Type: Progress Notes Filed: 11/04/2023 16:46 Note Text: I have communicated my name and active licensure. The patient's identity and physical location were verified at the time of this visit. Either the patient or their legal telemarketing sales representative has been informed of the risks and benefits of -- and alternatives to -- treatment through a remote evaluation and consents to proceed with the evaluation remotely. Name: Susi Ortiz Index Surgery Date of Surgery: 08/04/2023 Surgeon: Joe Granda MD Surgical Procedure: GASTRECTOMY, GASTRIC RESTRICTIVE PARTIAL (50 TO 100 CM COMMON CHANNEL) TO LIMIT ABSORPTION Pre-surgical weight: 176 kg (388 lb 0.2 oz) Override Index Surgery Information? No Other Bariatric Surgeries Date of Surgery Surgeon Procedure 03/31/2023 Joe Granda MD LAPAROSCOPY ENTEROLYSIS Visit: 3 months Today's Visit: Wt 167.4 kg (369 lb) BMI 63.34 kg/m2 BMI 63.34 kg/(m2) Last Visit: Wt: 167.4 kg (369 lb) BMI: 63.34 kg/(m2) Total weight loss: 8.623 kg (19 lb 0.2 oz) [place] weight: 66.1 kg (145 lb 10.6 oz) Excess weight: 109.9 kg (242 lb 5.6 oz) % of excess body weight lost: 8.623 kg (19 lb 0.2 oz) (7.84% of excess weight loss) COMPLICATIONS SINCE LAST VISIT?: NONE DIET INTAKE: tolerates Phase V diet See recent Car Racer appointment -B: protein shake, -snack: [place] bkft -L: ham and cheese -roll up -snack: [place] -D: chicken -snacks: -beverages: she gets enough fluids in; advised to avoid skipping meals and to try healthy protein shake as a meal replacement; also advised to avoid carbonated/sugary/caloric/alcoho lic beverages DAILY SUPPLEMENTS: Calcium: Calcium Citrate w/ vitamin D (1200 - 1500mg) Multivitamin AND Minerals: takes DS with ADEK plus iron Iron Supplement: included in multi-vitamin Vitamin B12: included in multivitamin Vitamin D3: included in multi-vitamin Other: N/A EXERCISE: walks 30 min day, 2x a day; suggested adding strength training a couple of times per week Current Outpatient Medications Medication Sig Zinc Acetate, Oral, 25 mg (zinc) cap Take 1 capsule by mouth once daily. Cholecalciferol, Vitamin D3, 25 mcg (1,000 unit) cap Take 2 capsules by mouth once daily. ferrous sulfate 325 mg (65 mg iron) tablet Take 1 tablet by mouth once daily. omeprazole (PRILOSEC) 40 mg capsule Take 1 [...] Take 60 mg by mouth once daily. No current facility-administered medications for this visit. REVIEW OF SYSTEMS: Denies abdominal pain, constipation, diarrhea, melena, hematochezia PHYSICAL EXAM: Wt (!) 167.4 kg (369 lb) LMP 07/08/2023 (Approximate) BMI 63.34 kg/m? 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 Granda -concerned for weight loss stall-consider Metformin, Top as options and possibly phentermine, Wegovy or Zepbound in future, around 6 month postop gt. -continue follow up with BMI Nutrition and Psychology -Metformin-some common s/e/r/b discussed and patient is interested in trial. Sent to pharmacy on file and to follow up in approximately 3 months for her 6 month postop. DISPOSITION: Return 3 month to Post-op follow up/ individual office visit EDUCATION: Encouraged to continue with healthy lifestyle changes and incorporate cardiovascular and resistance training, Discussed weight loss expectations after bariatric and metabolic surgery, or Discussed importance of protein intake as per the RDN note REFERRALS: N/A LABS: Today: See E (more content not included)... [facility] 11-02-2023 Instructions Jayshree Huffman APRN.KATTY - 11/02/2023 4:43 PM EDT Please make a follow up with Dr Nieto for help with further weight loss. You can call the [employer] [phone] to schedule. Let me know if you have trouble getting an appointment documented in this encounter [facility] 11-02-2023 Note HNO ID: [id number] Author: JAYSHREE HUFFMAN APRN.CNP Service: ? Author Type: Nurse Practitioner Type: Progress Notes Filed: 11/02/2023 16:45 Note Text: BMI SURGERY Post Op Clinic Note - virtual visit I have communicated my name and active licensure. The patient's identity and physical location were verified at the time of this visit. Either the patient or their legal telemarketing sales representative has been informed of the risks and benefits of -- and alternatives to -- treatment through a remote evaluation and consents to proceed with the evaluation remotely. November 02, 2023 INTERVAL HISTORY: Susi Ortiz is here for 3 month post op visit. She is feeling well overall, though is concerned she has not lost much weight since her surgery in July Index Surgery Date of Surgery: 08/04/2023 Surgeon: Joe Granda MD Surgical Procedure: GASTRECTOMY, GASTRIC RESTRICTIVE PARTIAL (50 TO 100 CM COMMON CHANNEL) TO LIMIT ABSORPTION Pre-surgical weight: 176 kg (388 lb 0.2 oz) Override Index Surgery Information? No Other Bariatric Surgeries Date of Surgery Surgeon Procedure 03/31/2023 Joe Granda MD LAPAROSCOPY ENTEROLYSIS Visit: 3 months Today's Visit: Wt 167.4 kg (369 lb) BMI 63.34 kg/m2 BMI 63.34 kg/(m2) Last Visit: Wt: 167.7 kg (369 lb 12.8 oz) BMI: 63.48 kg/(m2) Total weight loss: 8.623 kg (19 lb 0.2 oz) [place] weight: 66.1 kg (145 lb 10.6 oz) Excess weight: 109.9 kg (242 lb 5.6 oz) % of excess body weight lost: 8.623 kg (19 lb 0.2 oz) (7.84% of excess weight loss) COMPLICATIONS SINCE LAST VISIT?: NONE DIET INTAKE: Meeting - protein and fluid requirements Minute maid zero juices B - protein shake - premier Snack - oikos yogurt L - Ham - deli black forest 3 slices and cheese (portuguese 2 slices) Snack yesterday - 000 yogurt D- lean 3 oz burger/1 cheese/mustard and pickles, sugar free ketchup DAILY SUPPLEMENTS: Calcium: Calcium Citrate w/ vitamin D (1200 - 1500mg) Multivitamin AND Minerals: leida/DS vitamin Iron Supplement: included in multi-vitamin Vitamin B12: included in multivitamin Vitamin D3: included in multi-vitamin Other: biotin EXERCISE: Walking 1/2 hour 2 times per day - Weights - none Current Outpatient Medications Medication Sig omeprazole (PRILOSEC) [...] Take 60 mg by mouth once daily. No current facility-administered medications for this visit. REVIEW OF SYSTEMS: Incision has closed completely now Denies nausea, vomiting, dumping syndrome, reactive hypoglycemia, gustatory rhinorrhea, Denies abdominal pain, constipation, diarrhea, melena, hematochezia, Denies paresthesias, gait abnormality, fatigue, weakness, lower extremity edema, and Denies taking NSAIDs PHYSICAL EXAM: Wt (!) 167.4 kg (369 lb) LMP 07/08/2023 (Approximate) BMI 63.34 kg/m? GENERAL: AANDO, pleasant, NAD RESPIRATORY: non labored ABDOMEN: not well seen NEURO: no obvious deficits Assessment / PLAN: Susi Ortiz is a 38 year old female with Class III obesity who presented today for 3 month post op follow up s/p GASTRECTOMY, GASTRIC RESTRICTIVE PARTIAL (50 TO 100 CM COMMON CHANNEL) TO LIMIT ABSORPTION. - weight loss below expected - we discussed intake and activity at length - her diet is limited in vegetables, but otherwise reports appropriate intake for phase 4. Labs indicate pre - diabetes, elevated blood glucose. She will check the food and beverages she is taking in to see if there are hidden sugars / carbs - Follow up with Obesity medicine for help with further weight loss - labs low in iron, vitamin D and zinc. All 3 were sent to the pharmacy - recheck in 3 months - encouraged increased daily activity EDUCATION: Encouraged to continue with healthy lifestyle changes and incorporate cardiovascular and resistance training, Discussed weight loss expectations after bariatric and metabolic surgery, Advised PT to avoid NSAIDs, smoking tobacco given increased (more content not included)... [facility] 11-02-2023 History of Presen t illness Narrative BMI SURGERY Post Op Clinic Note - virtual visit I have communicated my name and active licensure. The patient's identity and physical location were verified at the time of this visit. Either the patient or their legal telemarketing sales representative has been informed of the risks and benefits of -- and alternatives to -- treatment through a remote evaluation and consents to proceed with the evaluation remotely. November 02, 2023 INTERVAL HISTORY: Susi Ortiz is here for 3 month post op visit. She is feeling well overall, though is concerned she has not lost much weight since her surgery in July Index Surgery Date of Surgery: 08/04/2023 Surgeon: Joe rGanda MD Surgical Procedure: GASTRECTOMY, GASTRIC RESTRICTIVE PARTIAL (50 TO 100 CM COMMON CHANNEL) TO LIMIT ABSORPTION Pre-surgical weight: 176 kg (388 lb 0.2 oz) Override Index Surgery Information? No Other Bariatric Surgeries Date of Surgery Surgeon Procedure 03/31/2023 Joe Granda MD LAPAROSCOPY ENTEROLYSIS Visit: 3 months Today's Visit: Wt 167.4 kg (369 lb) BMI 63.34 kg/m2 BMI 63.34 kg/(m^2) Last Visit: Wt: 167.7 kg (369 lb 12.8 oz) BMI: 63.48 kg/(m^2) Total weight loss: 8.623 kg (19 lb 0.2 oz) [place] weight: 66.1 kg (145 lb 10.6 oz) Excess weight: 109.9 kg (242 lb 5.6 oz) % of excess body weight lost: 8.623 kg (19 lb 0.2 oz) (7.84% of excess weight loss) COMPLICATIONS SINCE LAST VISIT?: NONE DIET INTAKE: Meeting - protein and fluid requirements Minute maid zero juices B - protein shake - premier Snack - oikos yogurt L - Ham - deli black forest 3 slices and cheese (portuguese 2 slices) Snack yesterday - 000 yogurt D- lean 3 oz burger/1 cheese/mustard and pickles, sugar free ketchup DAILY SUPPLEMENTS: Calcium: Calcium Citrate w/ vitamin D (1200 - 1500mg) Multivitamin & Minerals: leida/DS vitamin Iron Supplement: included in multi-vitamin Vitamin B12: included in multivitamin Vitamin D3: included in multi-vitamin Other: biotin EXERCISE: Walking 1/2 hour 2 times per day - Weights - none Current Outpatient Medications Medication Sig omeprazole (PRILOSEC) [...] Take 60 mg by mouth once daily. No current facility-administered medications for this visit. REVIEW OF SYSTEMS: Incision has closed completely now Denies nausea, vomiting, dumping syndrome, reactive hypoglycemia, gustatory rhinorrhea, Denies abdominal pain, constipation, diarrhea, melena, hematochezia, Denies paresthesias, gait abnormality, fatigue, weakness, lower extremity edema, and Denies taking NSAIDs PHYSICAL EXAM: Wt (!) 167.4 kg (369 lb) LMP 07/08/2023 (Approximate) BMI 63.34 kg/m GENERAL: A&O, pleasant, NAD RESPIRATORY: non labored ABDOMEN: not well seen NEURO: no obvious deficits Assessment / PLAN: Susi Ortiz is a 38 year old female with Class III obesity who presented today for 3 month post op follow up s/p GASTRECTOMY, GASTRIC RESTRICTIVE PARTIAL (50 TO 100 CM COMMON CHANNEL) TO LIMIT ABSORPTION. - weight loss below expected - we discussed intake and activity at length - her diet is limited in vegetables, but otherwise reports appropriate intake for phase 4. Labs indicate pre - diabetes, elevated blood glucose. She will check the food and beverages she is taking in to see if there are hidden sugars / carbs - Follow up with Obesity medicine for help with further weight loss - labs low in iron, vitamin D and zinc. All 3 were sent to the pharmacy - recheck in 3 months - encouraged increased daily activity EDUCATION: Encouraged to continue with healthy lifestyle changes and incorporate cardiovascular and resistance training, Discussed weight loss expectations after bariatric and metabolic surgery, Advised PT to avoid NSAIDs, smoking tobacco given increased risk of marginal ulcers, or Discussed importance of protein intake as per the RDN note DISPOSITION: Follow up with OM and BRENDON Huffman APRN.CNP Medical Decision Making: Problems: Moderate: 1+ chronic illnesses with change and 2+ stable chronic illnesses Data: Unique test result(s) reviewed: 3+ Risk: Low: Low risk from testing/treatment Medical Decision Making Level: 4 - Moderate documented in this encounter [facility] 11-02-[address] - 11/02/2023 10:34 AM EDT Reviewed nutrition principles of: 1. Continue to take all recommended vitamin/minerals -ProCare DS/LEIDA Bariatric multivitamin with 60 mg Iron (1x per day) AND 9336-9288 mg calcium citrate daily taken in divided doses 2. Continue Phase 4 diet. Protein goal: 96-128 grams protein/day. You may include one serving of fruit daily (paired with protein). 3. Track daily intake with goal of ~1200 calories/day - try Baritastic, Myfitnesspal or Lose It 4. Fluid goal: 64 ounces per day (no carbonation, caffeine, calories, alcohol) 5. Exercise goal: increase as tolerated to goal of 200 minutes/week combination cardiovascular and strength training exercise. 6. Practice mindful eating habits-take small portions, eat slowly, chew thoroughly, separate food and drink by 30 min before and after eating Nutrition Monitoring & Evaluation: BMI < 60 Criteria: weight check and patient update Need for Follow up: 6 months post op, scheduling [phone] documented in this encounter [facility] 11-02-2023 History of Presen t illness Narrative I have communicated my name and active licensure. The patient's identity and physical location were verified at the time of this visit. Either the patient or their legal telemarketing sales representative has been informed of the risks and benefits of -- and alternatives to -- treatment through a remote evaluation and consents to proceed with the evaluation remotely. Patient reports weight (as measured by home scale) of 369.8 pounds. AMBULATORY PATIENT EDUCATION NOTE-[facility] [employer] [facility] [...] 1200 calories/2 liters of fluids per day. 3 months post op BPD-DS ([place]e 08/04/23) Net weight loss 31.2 pounds (401 lbs initial) 8% TWL tracking lower than anticipated Pre-surgery weight: 388 pounds - 18.2 lbs/5% wt loss from surgery Weight gain since last session +7.7 lbs (362.1 lbs) Diet recall indicates patient is following phase IV diet appropriately and eating 5-6 small protein dense meals/snacks daily. Meeting protein needs with variety of protein sources including protein shakes, chicken, yogurt, cheese. Vegetable intake is not consistent. Fluids meet recommendations with primarily water. Exercise is routine with walking daily however lacks strength/resistance. 1000 calories/day - not meeting needs 100 g protein/day - meets needs >64 oz fluid/day - adequate Taking all vitamin/minerals - Procare DS + 1800 mg calcium citrate/day. Labs reveal low zinc, low iron, low vit D Resting Metabolic Rate: 2344 Energy needs for weight loss 2583-3438 kcal/day (10-15 harpreet/kg current weight) Protein needs: 96-128 grams protein per day (1.2 g/kg IBW kg) Reviewed nutrition principles of: 1. Continue to take all recommended vitamin/minerals -ProCare DS/LEIDA Bariatric multivitamin with 60 mg Iron (1x per day) AND 7502-7844 mg calcium citrate daily taken in divided doses 2. Continue Phase 4 diet. Protein goal: 96-128 grams protein/day. You may include one serving of fruit daily (paired with protein). 3. Track daily intake with goal of ~1200 calories/day - try Baritastic, Myfitnesspal or Lose It 4. Fluid goal: 64 ounces per day (no carbonation, caffeine, calories, alcohol) 5. Exercise goal: increase as tolerated to goal of 200 minutes/week combination cardiovascular and strength training exercise. 6. Practice mindful eating habits-take small portions, eat slowly, chew thoroughly, separate food and drink by 30 min before and after eating Nutrition Monitoring & Evaluation: BMI < 60 Criteria: weight check and patient update Need for Follow up: 6 months post op, scheduling [phone] Appointment Start Time: 9:45am Appointment End Time: 10:20am Time Spent on Consult: 35 minutes - Group Rupinder Colbert RD documented in this encounter [facility] 11-02-2023 Note HNO ID: [id number] Author: RUPINDER COLBERT RD Service: ? Author Type: Registered Dietitian Type: Progress Notes Filed: 11/02/2023 10:34 Note Text: I have communicated my name and active licensure. The patient's identity and physical location were verified at the time of this visit. Either the patient or their legal telemarketing sales representative has been informed of the risks and benefits of -- and alternatives to -- treatment through a remote evaluation and consents to proceed with the evaluation remotely. Patient reports weight (as measured by home scale) of 369.8 pounds. AMBULATORY PATIENT EDUCATION NOTE-Shared [employer] [...] 1200 calories/2 liters of fluids per day. 3 months post op BPD-DS (Kalee 08/04/23) Net weight loss 31.2 pounds (401 lbs initial) 8% TWL tracking lower than anticipated Pre-surgery weight: 388 pounds - 18.2 lbs/5% wt loss from surgery Weight gain since last session +7.7 lbs (362.1 lbs) Diet recall indicates patient is following phase IV diet appropriately and eating 5-6 small protein dense meals/snacks daily. Meeting protein needs with variety of protein sources including protein shakes, chicken, yogurt, cheese. Vegetable intake is not consistent. Fluids meet recommendations with primarily water. Exercise is routine with walking daily however lacks strength/resistance. 1000 calories/day - not meeting needs 100 g protein/day - meets needs >64 oz fluid/day - adequate Taking all vitamin/minerals - Procare DS + 1800 mg calcium citrate/day. Labs reveal low zinc, low iron, low vit D Resting Metabolic Rate: 2344 Energy needs for weight loss 8682-5787 kcal/day (10-15 harpreet/kg current weight) Protein needs: 96-128 grams protein per day (1.2 g/kg IBW kg) Reviewed nutrition principles of: 1. Continue to take all recommended vitamin/minerals -ProCare DS/LEIDA Bariatric multivitamin with 60 mg Iron (1x per day) AND 1736-2288 mg calcium citrate daily taken in divided doses 2. Continue Phase 4 diet. Protein goal: 96-128 grams protein/day. You may include one serving of fruit daily (paired with protein). 3. Track daily intake with goal of ~1200 calories/day - try Baritastic, Myfitnesspal or Lose It 4. Fluid goal: 64 ounces per day (no carbonation, caffeine, calories, alcohol) 5. Exercise goal: increase as tolerated to goal of 200 minutes/week combination cardiovascular and strength training exercise. 6. Practice mindful eating habits-take small portions, eat slowly, chew thoroughly, separate food and drink by 30 min before and after eating Nutrition Monitoring AND Evaluation: BMI < 60 Criteria: weight check and patient update Need for Follow up: 6 months post op, scheduling [phone] Appointment Start Time: 9:45am Appointment End Time: 10:20am Time Spent on Consult: 35 minutes - Group Rupinder Colbert RD [facility] 09-07-2023 Note HNO ID: [id number] Author: JAYSHREE HUFFMAN APRN.ENTRY LEVEL Service: ? Author Type: Nurse Practitioner Type: [...] loss: 6.128 kg (13 lb 8.2 oz) [place] weight: 66.1 kg (145 lb 10.6 oz) [...] FOLLOW UP: as scheduled Jayshree Huffman APRN.CNP [facility] 09-07-2023 History of Presen t illness Narrative [...] loss: 6.128 kg (13 lb 8.2 oz) [place] weight: 66.1 kg (145 lb 10.6 oz) [...] well NEURO: grossly intact Assessment / PLAN: uSsi Ortiz is a 38 year old female [...] Jayshree Huffman APRN.CNP documented in this encounter [facility] 08-31-[address] - 08/31/2023 12:14 PM EST Reviewed nutrition principles of: 1. Continue to take all recommended vitamin/minerals - ProCare DS/LEIDA Bariatric multivitamin with 60 mg Iron (1x per day) AND 7051-6470 mg calcium citrate daily 2. Protein goal: [...] try softer vegetables such as broccoli florets, [place] lettuce, red-leaf lettuce or [place] lettuce. Remember to chew vegetables thoroughly (chew 25 times) and swallow only when chewing has made it into a mushy pureed consistency. If you have trouble with gas, avoid eating gas-producing vegetables such as onions, cauliflower, garlic, scallions, leeks, [place] sprouts and cabbage. Avoid starchy vegetables such as potatoes (sweet and white), yams, yucca, plantain and corn at this time. Nutrition Monitoring & Evaluation: BMI < 60 Criteria: weight check and patient update Need for Follow up: 3 months post op, scheduling [phone] documented in this encounter [facility] 08-31-2023 Note HNO ID: [id number] Author: CHRISTOPHER SANTIAGO, PhD Service: ? Author Type: Psychologist Type: Progress Notes Filed: 08/31/2023 11:36 Note Text: [facility] Cost Center: [facility] Billing code: Gautam CPT Code: 06199 GROUP PSYCHOTHERAPY 24286 Brief Emotional/Behavioral Assessment with scoring/documentation (3 units) [...] [facility] The patient consented to a virtual visit and their location was confirmed. I have communicated my name and active licensure. The patient's identity and physical location were verified at the time of this visit. Either the patient or their legal telemarketing sales representative has been informed of the risks [...] PROMIS Global Health (more content not included)... [facility] 08-31-2023 History of Presen t illness Narrative I have communicated my name and active licensure. The patient's identity and physical location were verified at the time of this visit. Either the patient or their legal telemarketing sales representative has been informed of the risks [...] Rate: 2308 Energy needs for weight loss 3121-4836 kcal/day (10-15 harpreet/kg current weight) Protein needs: 96-128 grams protein per day (1.2 g/kg IBW kg) Reviewed nutrition principles of: 1. Continue to take all recommended vitamin/minerals - ProCare DS/LEIDA Bariatric multivitamin with 60 mg Iron (1x per day) AND 0716-7874 mg calcium citrate daily 2. Protein goal: [...] try softer vegetables such as broccoli florets, [place] lettuce, red-leaf lettuce or [place] lettuce. Remember to chew vegetables thoroughly (chew 25 times) and swallow only when chewing has made it into a mushy pureed consistency. If you have trouble with gas, avoid eating gas-producing vegetables such as onions, cauliflower, garlic, scallions, leeks, [place] sprouts and cabbage. Avoid starchy vegetables such as potatoes (sweet and white), yams, yucca, plantain and corn at this time. Nutrition Monitoring & Evaluation: BMI < 60 Criteria: weight check and patient update Need for Follow up: 3 months post op, scheduling [phone] Appointment Start Time: 9:45am Appointment End Time: 10:35am Time Spent on Consult: 50 minutes - Group Rupinder Colbert RD documented in this encounter [facility] 08-31-2023 Note HNO ID: [id number] Author: RUPINDER COLBERT RD Service: ? Author Type: Registered Dietitian Type: Progress Notes Filed: 08/31/2023 12:14 Note Text: I have communicated my name and active licensure. The patient's identity and physical location were verified at the time of this visit. Either the patient or their legal telemarketing sales representative has been informed of the risks [...] Rate: 2308 Energy needs for weight loss 4425-9370 kcal/day (10-15 harpreet/kg current weight) Protein needs: 96-128 grams protein per day (1.2 g/kg IBW kg) Reviewed nutrition principles of: 1. Continue to take all recommended vitamin/minerals - ProCare DS/LEIDA Bariatric multivitamin with 60 mg Iron (1x per day) AND 5459-1398 mg calcium citrate daily 2. Protein goal: [...] it is recommended (more content not included)... [facility] 08-19-2023 Instructions Alex Monsivais, BRENDON - 08/19/2023 12:18 PM EST 1. Continue vitamins Research post-op vitamins for LEIDA/DS procedure: - Bariatric Fusion ADEK Complete Capsule (3x per day) AND 1631-3661 mg calcium citrate OR - Bariatric Advantage High ADEK Chewable Multivitamin (2x per day) AND 0485-9636 mg calcium citrate OR -Celebrate multi-ADEK chewable (3x per day) AND 6721-5404 mg calcium citrate AND 1 chewable Iron 45-60 mg AND OR -ProCare DS/LEIDA Bariatric multivitamin with 60 mg Iron (1x per day) AND 9123-0312 mg calcium citrate daily 2. Protein goal: [...] at 1 month) The Bariatric & Metabolic [place] [facility] has 2 virtual support group meetings: This is the [employer] link with meeting number that will be used for all of the THURSDAY virtual support groups this year, on the Thursday of each month 5:30-6:30PM Join from the meeting link [email or web address] Join by meeting number Meeting number (access code): [id number] Meeting password: [email or web address] The schedule with dates, times, topics, and facilitators can be found here: [email or web address] This is the [employer] link with meeting number that will be used for the Open Discussion ( Food for Thought ) support group on the First Thursday of each month 5:30-6:30PM Join from the meeting link [email or web address] Join by meeting number Meeting number (access code): [phone] Meeting password: [email or web address] Hope to see you there! Nutrition Monitoring & Evaluation: Advance diet to phase 3 by next visit Criteria: patient recall Need for Follow up: 1 month post op documented in this encounter [facility] 08-19-2023 Note HNO ID: [id number] Author: ALEX MONSIVAIS RD Service: ? Author [...] visit. Either the patient or their legal telemarketing sales representative has been informed of the risks [...] yet taking recommended vitamin/minerals, however plans for [employer] Pictures ADEK + 2000 mg calcium citrate. Exercise includes walking most days. Labs not available to evaluate. Reviewed nutrition principles of: 1. Continue vitamins Research post-op vitamins for LEIDA/DS procedure: - Bariatric Fusion ADEK Complete Capsule (3x per day) AND 4191-1638 mg calcium citrate OR - Bariatric Advantage High ADEK Chewable Multivitamin (2x per day) AND 7770-4675 mg calcium citrate OR -Celebrate multi-ADEK chewable (3x per day) AND 4033-9590 mg calcium citrate AND 1 chewable Iron 45-60 mg AND OR -ProCare DS/LEIDA Bariatric multivitamin with 60 mg Iron (1x per day) AND 2917-1600 mg calcium citrate daily 2. Protein goal: [...] at 1 month) The Bariatric AND Metabolic [place] [facility] has 2 virtual support group meetings: This is the [employer] link with meeting number that will be used for all of the THURSDAY virtual support groups this year, on the Thursday of each month 5:30-6:30PM Join from the meeting link [email or web address] Join by meeting number Meeting number (access code): [phone] Meeting password: [email or web address] The schedule with dates, times, topics, and facilitators can be found here: [email or web address] This is the Connect[employer] link with meeting number that will be used for the Open Discussion ( Food for Thought ) support group on the Thursday of each month 5:30-6:30PM Join from the meeting link [email or web address] Join by meeting number Meeting number (access code): [phone] Meeting password: [email or web address] Hope to see you there! Nutrition Monitoring AND Evaluation: Advance diet to phase 3 by next visit Criteria: patient recall Need for Follow up: 1 month (more content not included)... [facility] 08-19-2023 History of Presen t illness Narrative [...] visit. Either the patient or their legal telemarketing sales representative has been informed of the risks [...] yet taking recommended vitamin/minerals, however plans for Tiny Pictures ADEK + 2000 mg calcium citrate. Exercise includes walking most days. Labs not available to evaluate. Reviewed nutrition principles of: 1. Continue vitamins Research post-op vitamins for LEIDA/DS procedure: - Bariatric Fusion ADEK Complete Capsule (3x per day) AND 1801-9508 mg calcium citrate OR - Bariatric Advantage High ADEK Chewable Multivitamin (2x per day) AND 6398-4303 mg calcium citrate OR -Celebrate multi-ADEK chewable (3x per day) AND 8506-3629 mg calcium citrate AND 1 chewable Iron 45-60 mg AND OR -ProCare DS/LEIDA Bariatric multivitamin with 60 mg Iron (1x per day) AND 3826-3118 mg calcium citrate daily 2. Protein goal: [...] at 1 month) The [facility] [place] at [facility] has 2 virtual support group meetings: This is the ConnectS[employer] link with meeting number that will be used for all of the THURSDAY virtual support groups this year, on the Thursday of each month 5:30-6:30PM Join from the meeting link [email or web address] Join by meeting number Meeting number (access code): [phone] Meeting password: [email or web address] The schedule with dates, times, topics, and facilitators can be found here: [email or web address] This is the ConnectS[employer] link with meeting number that will be used for the Open Discussion ( Food for Thought ) support group on the Thursday of each month 5:30-6:30PM Join from the meeting link [email or web address] Join by meeting number Meeting number (access code): [phone] Meeting password: [email or web address] Hope to see you there! Nutrition Monitoring & Evaluation: Advance diet to phase 3 by next visit Criteria: patient recall Need for Follow up: 1 month post op Appointment Start Time: 11:45 AM Appointment End Time: 12:15 PM Time Spent on Consult: 30 minutes - Group Alex Monsivais RD documented in this encounter [facility] 08-17-2023 Note HNO ID: [id number] Author: JAYSHREE HUFFMAN APRN.ENTRY LEVEL Service: ? Author Type: Nurse Practitioner Type: [...] loss: 8.2 kg (18 lb 1.2 oz) [place] weight: 66.1 kg (145 lb 10.6 oz) [...] refilled zofran Activity: (more content not included)... [facility] 08-17-2023 History of Presen t illness Narrative [...] loss: 8.2 kg (18 lb 1.2 oz) [place] weight: 66.1 kg (145 lb 10.6 oz) [...] Jayshree Huffman APRN.KATTY documented in this encounter [facility] 08-13-2023 Miscellaneous Notes BMI SPECIALTY CARE [...] appt. Reminded patient of how to reach [facility] or their surgeons office. Patient reminded to seek medical attention if they develop chest pain, a sudden onset of shortness of breath or persistent pain in the calf of their legs - BEST TO ALWAYS present to PSYCHIATRIC hospital where you had your surgery Patient verbalized understanding of all advice and instructions given. Niki Peterson RN documented in this encounter [facility] 08-11-2023 Note HNO ID: [id number] Author: ?, ?, ? Service: ? Author Type: ? Type: Plan of Care Filed: 08/11/2023 17:07 Note Text: PHARMACY BEDSIDE DELIVERY SERVICE Patient Name: Susi Ortiz The marked outpatient medications were Filled at: [facility] and delivered to the patient's bedside to [facility] Medication List START taking these medications methocarbamol [...] mg tablet Commonly known as: ABBEY López (Electronic Warfare Officer) PAGER: [phone] August 11, 2023 5:05 PM [facility] 08-11-2023 Note HNO ID: [id number] Author: GLENIS NAZARIO MD Service: General Surgery Author Type: Resident Type: Progress Notes Filed: 08/11/2023 07:06 Note Text: General Surgery Progress Note Name: Susi Ortiz [facility]NH4C-96 ASSESSMENT AND PLAN Susi Ortiz is a [...] Nazario MD General Surgery, Resident Please contact [facility] Team pager for any questions [phone] during the daytime hours from 6a to 6p. Contact [phone] for nights and weekends Subjective -No acute [...] MG 2.0 1.8 1.8 Imaging None today [facility] 08-10-2023 Note HNO ID: [id number] Author: GLENIS NAZARIO MD Service: General Surgery Author Type: Resident Type: Progress Notes Filed: 08/10/2023 08:01 Note Text: General Surgery Progress Note Name: Susi Ortiz [facility]C28/[id number] ASSESSMENT AND PLAN Susi Ortiz is a [...] daily MSK: OOB to chair Dispo: RNF, likely DC tomorrow 08/11 Plan to be discussed with staff Glenis Nazario MD General Surgery, Resident Please contact [facility] pager for any questions [phone] during the daytime hours from 6a to 6p. Contact [phone] for nights and weekends Subjective -No acute [...] 97 MG 1.8 1.8 Imaging None today [facility] 08-09-2023 Note HNO ID: [id number] Author: ANGELA COPELAND MD Service: General Surgery Author Type: Physician Type: Progress Notes Filed: 08/09/2023 09:41 Note Text: General Surgery Progress Note Name: Susi Ortiz Bed: FV-PK3C28/FV-WR7Z-76 Date: August 08, 2023 ASSESSMENT AND PLAN [...] staff Patrica Anaya MD General Surgery, Resident [phone] Please contact [facility] Team pager for any questions [phone] during the daytime hours from 6a to 6p. Contact [phone] for nights and weekends Subjective -No acute [...] intact Recent Labs 08/09/23 0431 08/08/23 0433 08/07/23 0435 WBC 14.45* 15.03* 16.39* HB 11.9 11.4* [...] incision. Tolerating some fluids. Philly Copeland MD [facility] 08-09-2023 Note HNO ID: [id number] Author: MAYANK VELARDE RN Service: ? Author Type: Registered Nurse Type: Nursing Progress Note Filed: 08/09/2023 06:08 Note Text: 0608: page SROC pt potassium came back 3.5 this morning. [facility] 08-08-2023 Note HNO ID: [id number] Author: ANGELA COPELAND MD Service: General Surgery Author Type: Physician Type: Progress Notes Filed: 08/08/2023 09:33 Note Text: General Surgery Progress Note Name: Susi Ortiz Bed: [address] Date: August 08, 2023 ASSESSMENT AND PLAN [...] No gas yet today. Philly Copeland MD [facility] 08-07-2023 Note HNO ID: [id number] Author: MAICO MCCLAIN MD Service: General Surgery Author Type: Resident Type: Progress Notes Filed: 08/07/2023 09:26 Note Text: General Surgery Progress Note Name: Susi Ortiz Bed: FV-PK3C28/FV-TD6Z-35 Date: August 07, 2023 ASSESSMENT AND PLAN [...] this interval not displayed. Imaging None today [facility] 08-06-2023 Note HNO ID: [id number] Author: MAICO MCCLAIN MD Service: General Surgery Author Type: Resident Type: Progress Notes Filed: 08/06/2023 15:58 Note Text: General Surgery Progress Note Name: Susi Ortiz Bed: [address] Date: August 06, 2023 ASSESSMENT AND PLAN [...] 2.0 -- -- 1.8 Imaging None today [facility] 08-06-2023 Note HNO ID: [id number] Author: JOE GRANDA MD Service: General Surgery [...] to higher level of VTE prophylactic dosing oJe Granda MD [facility] 08-05-2023 Note HNO ID: [id number] Author: JOE GRANDA MD Service: General Surgery Author Type: Physician Type: Progress Notes Filed: 08/05/2023 15:58 Note Text: General Surgery Progress Note Name: Susi Borjahip Bed: [place] [address] Date: August 05, 2023 ASSESSMENT AND [...] Doing well POD 1. Joe Granda MD [facility] 08-05-2023 Note HNO ID: [id number] Author: ALMA CONNORS LSW Service: Care Management Author Type: Evening Or Night Nurse Supervisor Type: Care Mgt Initial Assessment Filed: 08/05/2023 12:20 Note Text: CARE MANAGEMENT: ASSESSMENT AND DISCHARGE PLAN SERVICE DATE: August 05, 2023 SERVICE TIME: 12:17 PM PCP: Elizabet Simental DO, DO Primary Contact: Extended Emergency Contact Information Primary Emergency Contact: Evita Eckert [facility] Mobile Relation: Grandparent Secondary Emergency Contact: Ritchie Stephens [facility] Mobile Relation: Mother Admission Status: Inpatient Insurance Provider: TERRY CAO MEDICAID OF [place] Discharge Planning requested by: Per Department Practice Potential Transition Plans No Services Indicated Advance Directives Current Advance Directive: None Research Aide Attempted to Assist with AD Completion: Yes [...] General wellness, Be able to go home [place] Choice Explained: [place] Given: No Reason Not Given: [...] unemployed, drives. Does not utilize any DME, intermediate or community resources. No skilled needs identified at this time. DC transportation will be provided by family. SIGNATURE: LELAND Kumar PATIENT NAME: Susi Ortiz DATE: August 05, 2023 TIME: 12:17 PM CONTACT #: [phone] [facility] 08-05-2023 Note HNO ID: [id number] Author: RADHA LARSON MD Service: General Surgery [...] q8h - Continue NPO Radha Larson MD [facility] Pager [phone] Subjective: pain well controlled on current regimen, [...] ALLERGIES Allergen Reacti (more content not included)... [facility] 08-04-2023 Note HNO ID: [id number] Author: MARIIA AGUERO APRN.MOBILE APPLICATION TESTER Service: ? Author Type: Nurse Inventory Associate And Driver Type: Anesthesia Procedure Notes Filed: 08/04/2023 14:30 Note Text: ANESTHESIOLOGY PROCEDURE NOTE Gastric Tube General Information Procedure Start Time/Medication Administration: 08/04/2023 1:15 PM Patient location during procedure: OR Indication: gastric decompression Staffing Anesthesiologist: Amanda Alcantar DO MOBILE APPLICATION TESTER: Mariia Aguero APRN.MOBILE APPLICATION TESTER Performed by: CHEKO Procedure Details Type: Nasogastric tube Cortrak monitor used: No Size: 18 Fr cm Distance Advanced: 55 cm Securement: taped to the nose Placement Confirmation: KUB ordered/pending Successful Placement: yes Post-Procedure Details SIGNATURE: Mariia Aguero APRN.CRNA PATIENT NAME: Susi Naqvi Ortiz DATE: August 04, 2023 TIME: 2:23 PM CSN: [id number] [facility] 08-04-2023 Note HNO ID: [id number] Author: JUDE LOPEZ DO Service: Anesthesiology Author Type: Anesthesiologist Type: Anesthesia Procedure Notes Filed: 08/04/2023 12:19 Note Text: ANESTHESIOLOGY PROCEDURE NOTE Epidural Block General Information Procedure Start Time/Medication Administration: 08/04/2023 7:27 AM Patient location during procedure: pre-op Informed Consent Consent Obtained: Written [place] Protocol A moment to CARE was completed. [...] 3 Needle and Epidural Catheter Needle type: SCS Group Needle gauge: 17G Needle length: 6 in [...] August 04, 2023 TIME: 12:10 PM CSN: [id number] [facility] 08-04-2023 Note HNO ID: [id number] Author: MARIIA AGUERO APRN.CRNA Service: ? Author Type: Nurse Inventory Associate And Driver Type: Anesthesia Procedure Notes Filed: 08/04/2023 10:01 Note Text: ANESTHESIOLOGY PROCEDURE NOTE Airway General Information Procedure Start Time/Medication Administration: 08/04/2023 8:47 AM Patient location during procedure: OR Patient identity confirmed: arm band and patient Staffing Anesthesiologist: Amanda Alcantar DO MOBILE APPLICATION TESTER: Mariia Aguero APRN.MOBILE APPLICATION TESTER Performed by: other anesthesia staff Indications and Patient Condition Indications for airway management: anesthesia Preoxygenated: yes anesthesia circuit Patient position: sniffing Method: modified rapid sequence Difficult Mask: No Airway Accessory: oral airway Final Airway Details Final airway type: endotracheal airway Final Endotracheal Airway: ETT Cuffed: yes Successful intubation technique: video laryngoscopy Devices used: Garcia Endotracheal tube insertion site: oral Blade size: #4 ETT size (mm): 7.5 Measured from: lips Measurement (cm): 22 Placement verified by: capnometry Cormack-Lehane Classification: grade I - full view of glottis Number of attempts at approach: 1 Airway not difficult Comments Atraumatic intubation. Dentition and lips remain the same as preop. Critical care MILK TANKER DRIVER performed intubation. SIGNATURE: Mariia Aguero APRN.CRNA PATIENT NAME: Susi Naqvi Ortiz DATE: August 04, 2023 TIME: 9:58 AM CSN: [id number] [facility] 08-04-2023 Note HNO ID: [id number] Author: AMANDA ALCANTAR DO Service: Anesthesiology Author Type: Physician Type: Anesthesia Procedure Notes Filed: 08/04/2023 09:33 Note Text: ANESTHESIOLOGY PROCEDURE NOTE A-Line General Information Procedure Start Time/Medication Administration: 08/04/2023 9:02 AM Patient location during procedure: OR Consent Obtained: Yes Indications: continuous blood pressure monitoring Staffing Anesthesiologist: Amanda Alcantar DO MOBILE APPLICATION TESTER: Mariia Aguero APRN.MOBILE APPLICATION TESTER Performed by: anesthesiologist Preparation Sterility Preparation: hand [...] August 04, 2023 TIME: 9:32 AM CSN: [id number] [facility] 08-04-2023 Note HNO ID: [id number] Author: AMANDA ALCANTAR DO Service: Anesthesiology Author Type: Physician Type: Anesthesia Procedure Notes Filed: 08/04/2023 09:32 Note Text: ANESTHESIOLOGY PROCEDURE NOTE PIV General Information Procedure Start Time/Medication Administration: 08/04/2023 9:20 AM Patient Location: OR Staffing Anesthesiologist: Amanda Alcantar DO MOBILE APPLICATION TESTER: Mariia Aguero APRN.MOBILE APPLICATION TESTER Other anesthesia staff/rotator: Cari Elizondo APRN.MOBILE APPLICATION TESTER Performed by: anesthesiologist Preparation Sterility Preparation: hand hygiene performed prior to procedure Site Prep: Betadine and chlorhexidine Procedure Details Indication: need for IV access Needle Size/Type: 14 gauge angiocath Orientation: Left Location: Antecubital Imaging Guidance Used: Yes Image in Chart: Yes SIGNATURE: Amanda Alcantar DO PATIENT NAME: Susi Ortiz DATE: August 04, 2023 TIME: 9:30 AM CSN: [id number] [facility] 08-03-2023 Miscellaneous Notes BMI SPECIALTY CARE COORDINATION SURGERY PRE-OP EDUCATION NOTE Phoned patient to reinforce prior pre-op instruction and answer any questions she might have. No answer. Left brief vmm including contact info for this RN and requested call back. documented in this encounter [facility] 07-21-2023 Note HNO ID: [id number] Author: EARL MCGEE RD Service: ? Author [...] visit. Either the patient or their legal telemarketing sales representative has been informed of the risks [...] Advanced Nutrition OR 5.5 packets/day Light Start [place] Breakfast Essentials mixed with 1% or skim [...] from poultry, beef, fish, seafood, eggs, cheese, [place] yogurt, cottage cheese, beans, lentils, tofu. Choose meat products that are tender, shredded and/or ground to increase tolerance. Remember to chew food well, eat slow, take small bites CHANGES IN TREATMENT: Patient met goal(s): Yes Diagnosis: has not changed. Allergies: Adhes. Ypnk-Qfpv-Ltnjrwrmxylh, Adhesive Tape-Silicones, Augmentin [Amoxicillin-Pot Clavulanate], Keflex [Cephalexin], [...] Significant unintentional weight (more content not included)... [facility] 07-20-2023 Note HNO ID: [id number] Author: JOE GRANDA MD Service: ? Author Type: Physician Type: Progress Notes Filed: 07/20/2023 14:06 Note Text: SURGERY PREOPERATIVE VISIT NOTE Name: Susi Ortiz Medical Record: [id number] Encounter No.: [id number] Susi Ortiz is a 38 year old [...] use: Never ALLERGIES: ALLERGIES Allergen Reactions Adhes. Pktt-Kqyd-En* Rash Adhesive Tape-Silic* Rash Augmentin [Amoxicil* Diarrhea [...] regarding unsatisfactory weight loss as well as half-way weight regain. I have also discussed medical [...] well and christian (more content not included)... [facility] 06-11-2023 Note HNO ID: [id number] Author: Heidy Dsouza RN Service: ? Author Type: ? Type: Progress Notes Filed: 06/11/2023 5:30 PM Note Text: Received approval for open LEIDA. Scheduled on 08/04/[address] Granda at . [facility] 04-30-2023 Note HNO ID: [id number] Author: Shaunna Persaud, PhD Service: ? Author Type: Psychologist Type: Progress Notes Filed: 04/30/2023 9:45 AM Note Text: [facility] Progress Note 04/30/2023 Billing code: Robert Patient did not attend, cancel, or reschedule this appointment. Shaunna Persaud, Ph.D. Clinical Health Psychologist [facility] 04-27-2023 Miscellaneous Notes This patient underwent a [...] Joe Granda MD documented in this encounter [facility] 04-13-2023 Note HNO ID: [id number] Author: Rupindre Colbert RD Service: ? Author Type: Registered Dietitian Type: Progress Notes Filed: 04/13/2023 5:48 PM Note Text: Patient presented for virtual visit, however she has not yet had bariatric surgery and does not need 2 week post op visit at this time. Will be rescheduled 2 weeks before surgery once scheduled. Rupinder Colbert RD, LD [facility] 04-13-2023 History of Presen t illness Narrative Patient presented for virtual visit, however she has not yet had bariatric surgery and does not need 2 week post op visit at this time. Will be rescheduled 2 weeks before surgery once scheduled. Rupinder Colbert RD, LD documented in this encounter [facility] 04-11-2023 Note HNO ID: [id number] Author: Note, Interface Service: ? Author Type: ? Type: Progress Notes Filed: 04/11/2023 3:29 AM Note Text: Epic Scheduled Downtime: 04/11/2023 1:00:00 AM to 04/11/2023 1:28:00 AM 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 Advance to FLD diet Pain control DVT ppx with BID LVX Continue home abilify, cymbalta, lamictal and prazosin Continue home singulair DC potentially later today pending FLD tolerance and pain control Plan discussed with staff Dr Kalee Hughes M.D. General Surgery Resident For team paging 6AM-6PM during weekdays: [phone] for [facility] Team For team paging after 6PM or on weekend / holidays: [phone] for General Surgery Subjective: - No acute [...] 1006 APTT 30.3 INR 0.9 Cardiac Enzymes [facility] 03-31-2023 Note HNO ID: [id number] Author: Heber Riddle SRNA Service: ? Author Type: Student Type: Anesthesia Procedure Notes Filed: 03/31/2023 11:20 AM Note Text: ANESTHESIOLOGY PROCEDURE NOTE Airway General Information Procedure Start Time/Medication Administration: 03/31/2023 10:35 AM Patient location during procedure: OR Timeout Performed Pre-procedure: timeout performed Consent Obtained: Yes Patient identity confirmed: arm band and patient Staffing Anesthesiologist: Darrel Conklin MD MOBILE APPLICATION TESTER: Sheridan Claire APRN.MOBILE APPLICATION TESTER SRNA: Heber Riddle SRNA Performed by: LILIANA [...] March 31, 2023 TIME: 11:18 AM CSN: [id number] [facility] 03-10-2023 Instructions Shruti Alvarado APRN.ENTRY LEVEL - 03/10/2023 2:02 PM EDT PATIENT PREOPERATIVE INSTRUCTIONS Joe Granda MD has scheduled you for your procedure at this surgery center: [facility]: [phone] --[id number] [place] [id number]. Please check in on the 1st floor [...] Procedures: - YOU MUST HAVE A RESPONSIBLE WHEEL LACER AND TRUER TAKE YOU HOME. A NEWSPAPER EDITOR OR PULL OUT OPERATOR CANNOT BE MADE A RESPONSIBLE WHEEL LACER AND TRUER. - We recommend that a responsible person [...] Advance Directive, please fax a copy to [phone] or email to for it to be [...] Shruti Alvarado APRN.KATTY documented in this encounter [facility] 03-10-2023 History and physical note HISTORY [...] medication comments found. ALLERGIES Allergen Reactions Adhes. Gdnh-Wixd-Wq* Rash Adhesive Tape-Silic* Rash Augmentin [Amoxicil* Diarrhea Keflex [Cephalexin] Rash, Itching Penicillins Hives Ultram [Tramadol Hc* Itching COVID VACCINATION STATUS: Fully vaccinated REVIEW OF SYSTEMS: PAIN ASSESSMENT: General: No weight loss, malaise or fevers. Neuro: No history of TIA's, stroke, PASSPORT SUPPORT ASSOCIATE tumor, impaired sensorium, hemiplegia, paraplegia or quadraplegia. No neurological symptoms or problems. Positive for Migraines on Inderal Respiratory: Positive for TONEY non compliant with CPAP , Negative for No history of current cough or dyspnea, or pneumonia in the past 6 weeks. No history of respiratory/pulmonary symptoms or problems Cardiovascular: No history of HTN requiring medication, no history of angina, CHF, CA, cardiac surgery or stents. Denies rest pain, gangrene or revascularization/amputation for PVD. No history of cardiovascular symptoms or problems. GI: See HPI : No history of dysuria, frequency or incontinence,, stones or chronic kidney disease, No difficulty urinating, nocturia > 1 time per night or hematuria NEWSPAPER EDITOR: Negative for abnormal vaginal bleeding, abnormal vaginal discharge. : Denies, Patient's last menstrual period was 09/24/2015. Endocrine: No history of diabetes. Has not taken steroids within the past 30 days. No history of endocrinological symptoms or problems. Hematology: Bleeding / clotting disorders (Thrombocytopenia) s/p splenectomy in 2014 Oncology: No history of CA metastasis, chemo [...] normal intervals, reviewed by myself., reviewed by stock selector. All in [facility] Assessment/Plan TONEY on CPAP Assessment: non compliant with CPAP Gastroesophageal reflux disease Assessment: stable on PPI Bipolar affective disorder ([facility]) Assessment: stable on medication Denies any suicidal ideations Morbid obesity with body mass index of 60.0-69.9 in adult ([facility]) Assessment: Body mass index is 68.66 kg/m . Thrombocytosis ([facility]) Assessment: s/p splenectomy in 2014, Elevated Platelet [...] SIGNATURE: Shruti Alvarado APRN.CNP PATIENT NAME: Susi Naqvi Ortiz DATE: March 10, 2023 TIME: 1:33 PM documented in this encounter [facility] 03-05-[address] - 03/05/2023 1:53 PM EDT Instructions for Liquid Diet before surgery Start the full liquid diet 3 weeks before surgery - Use only the approved protein shakes: 4.5 bottles/day Slim Fast Advanced Nutrition OR 5.5 packets/day Light Start [place] Breakfast Essentials mixed with 1% or skim [...] from poultry, beef, fish, seafood, eggs, cheese, [place]or[place] yogurt, cottage cheese, beans, lentils, tofu. Choose meat products that are tender, shredded and/or ground to increase tolerance. Remember to chew food well, eat slow, take small bites documented in this encounter [facility] 03-05-2023 Note HNO ID: [id number] Author: Mireille Dao RD Service: ? Author Type: Registered Dietitian Type: Progress Notes Filed: 03/05/2023 1:53 PM Note Text: I have communicated my name and active licensure. The patient's identity and physical location were verified at the time of this visit. Either the patient or their legal telemarketing sales representative has been informed of the risks [...] Advanced Nutrition OR 5.5 packets/day Light Start [place] Breakfast Essentials mixed with 1% or skim [...] from poultry, beef, fish, seafood, eggs, cheese, Andorran yogurt, cottage cheese, beans, lentils, tofu. Choose meat products that are tender, shredded and/or ground to increase tolerance. Remember to chew food well, eat slow, take small bites CHANGES IN TREATMENT: Patient met goal(s): Partially Diagnosis: has not changed. Allergies: Adhes. Lkin-Nmcb-Qialcinnqtdd, Adhesive Tape-Silicones, Augmentin [Amoxicillin-Pot Clavulanate], Keflex [Cephalexin], [...] free. Avoid carbonat (more content not included)... [facility] 03-05-2023 History of Presen t illness Narrative I have communicated my name and active licensure. The patient's identity and physical location were verified at the time of this visit. Either the patient or their legal telemarketing sales representative has been informed of the risks [...] Advanced Nutrition OR 5.5 packets/day Light Start [place] Breakfast Essentials mixed with 1% or skim [...] from poultry, beef, fish, seafood, eggs, cheese, Andorran yogurt, cottage cheese, beans, lentils, tofu. Choose meat products that are tender, shredded and/or ground to increase tolerance. Remember to chew food well, eat slow, take small bites CHANGES IN TREATMENT: Patient met goal(s): Partially Diagnosis: has not changed. Allergies: Adhes. Bneb-Rvun-Foshrtzfnjzf, Adhesive Tape-Silicones, Augmentin [Amoxicillin-Pot Clavulanate], Keflex [Cephalexin], [...] mg per day Calcium Citrate https://www.bariatricfusion.com/ collections/adek/products/bariat nrh-cpcfdcqljeqy-yley-adek-vitam hn-tvqm-iyuv OR - 2 per day Bariatric Advantage High ADEK Multivitamin Capsules AND 9571-8815 mg per day Calcium Citrate AND 45-60 mg per day Iron https://www.bariatricadvantage.c om/rnoq-khdv-bzuxjnbmjewd-capsul es OR - 2 per day Celebrate Multi-ADEK with Iron Chewable Tablets AND 1368-0530 mg per day Calcium Citrate https://Filepicker.ios.Magic Leap/pr oducts/mncxu-hqfq-dhke-iron?vari jzu=[id number] OR -1 per day ProCare DS/LEIDA Bariatric Multivitamin with 60 mg Iron AND 3672-1378 mg per day Calcium Citrate https://Humanoid/Zuldi-Shenzhen Hasee computer vraac-tmrn-peytr-bariatric-multi tcqddoc-tzhwyek-bq-leida/?sku=Vit -JjjkUfkfHA-JYAZ-71oi S-LEIDA-30ct Nutrition Monitoring & Evaluation: Follow pre op diet and fluid guidelines Criteria: weight check Need for Follow up: 2 weeks post op Appointment Start Time: 1:00 pm Appointment End Time: 1:21 pm Time Spent on Consult: 21 minutes - Group SIGNATURE: Mireille Dao RD PATIENT NAME: Susi Otriz DATE: 03/05/2023 TIME: 12:55 PM PAGER: documented in this encounter [facility] 02-26-2023 Note HNO ID: [id number] Author: Pao Hodgson RN Service: ? Author Type: Registered Nurse Type: Progress Notes Filed: 02/26/2023 2:35 PM Note Text: Surgery date rescheduled to 03/31/2023. Pao Hodgson RN [facility] 01-15-2023 Note HNO ID: [id number] Author: Joe Granda MD Service: ? Author Type: Physician Type: Progress Notes Filed: 01/15/2023 11:40 AM Note Text: VIRTUAL VISIT PROGRESS NOTE This is a virtual visit using Unveil video visit. It required patient-provider interaction for the medical decision making as documented below. I have communicated my name and active licensure. The patient's identity and physical location were verified at the time of this visit. Either the patient or their legal telemarketing sales representative has been informed of the risks and benefits of -- and alternatives to -- treatment through a remote evaluation and consents to proceed with the evaluation remotely. PREOPERATIVE VISIT NOTE Name: Susi Ortiz Medical Record: [id number] Encounter No.: [id number] Susi Ortiz is a 37 year old [...] for this visit. ALLERGIES Allergen Reactions Adhes. Oxzy-Hata-Mw* Rash Adhesive Tape-Silic* Rash Augmentin [Amoxicil* Diarrhea [...] or repair, stric (more content not included)... [facility] 01-05-2023 Note HNO ID: [id number] Author: Pao Hodgson RN Service: ? Author Type: Registered Nurse Type: Progress Notes Filed: 01/30/2023 10:27 AM Note Text: Surgery date rescheduled to 03/17/2023. Pao Hodgson RN [facility] 01-05-2023 Miscellaneous Notes [facility] SPECIALTY CARE COORDINATION SURGERY APPROVAL CALL Received e-mail confirmation of insurance approval for bariatric surgery.Pre-operative call placed to the patient, this RN spoke with patient and agreed upon a surgery date of February 03 2023. Surgical episode request sent to [facility] surgery scheduling. 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 Creatinine level 0.81 Patient instructed to start pre-op 800 calorie total protein liquid diet daily beginning 2 weeks prior to surgery. - Stop all ASA and NSAID products, [place] 3 fish oil, herbal products such as [...] Pt instructed to fax FMLA forms to [phone] and allow 7-10 days for completion. - Deandra video assigned. - All questions and concerns addressed and patient verbalized understanding. - Patient case reviewed. All nutrition appointments completed, psychology clearance obtained, surgeon visit and procedure type verified, medical optimization obtained and all testing complete. 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 Yes, patient has Con ABO. Pao Hodgson RN documented in this encounter [facility] 12-15-[address] - 12/15/2022 3:28 PM EDT 1. [...] mg per day Calcium Citrate https://www.bariatricfusion.com/ collections/adek/products/bariat rxc-whqmyrrodmpt-aoqz-adek-vitam yf-qhid-itmw OR - 2 per day Bariatric Advantage High ADEK Multivitamin Capsules AND 7332-2208 mg per day Calcium Citrate AND 45-60 mg per day Iron https://www.bariatricadvantage.c om/oqen-idtm-xhsbulyicmoj-capsul es OR - 2 per day Celebrate Multi-ADEK with Iron Chewable Tablets AND 7143-1920 mg per day Calcium Citrate https://celebrateGC Aestheticss.com/pr oducts/nezry-uklz-qokw-iron?vari jeg=[id number] OR -1 per day ProCare DS/LEIDA Bariatric Multivitamin with 60 mg Iron AND 2272-3068 mg per day Calcium Citrate https://Humanoid/procare-h frlkx-huxa-chziq-bariatric-multi hhisqbk-lvlmlds-tl-leida/?sku=Vit -LtsjAyanFE-UCRX-83vv S-LEIDA-30ct documented in this encounter [facility] 12-15-2022 Note HNO ID: [id number] Author: Mireille Dao RD Service: ? Author Type: Registered Dietitian Type: Progress Notes Filed: 12/15/2022 3:32 PM Note Text: [facility] Nutrition Therapy: Virtual Consult - Re-assessment I have communicated my name and active licensure. The patient's identity and physical location were verified at the time of this visit. Either the patient or their legal telemarketing sales representative has been informed of the risks [...] per day Calcium Citrate https://www.bariatricfusion.com/ collections/adek/products/bariat libby-multivi xvrbj-onkh-hdma-wtcgvwo-qtjf-bqs n OR - 2 per day Bariatric Advantage High ADEK Multivitamin Capsules AND 0710-2230 mg per day Calcium Citrate AND 45-60 mg per day Iron https://www.bariatricadvantage.c om/gatq-uiur-fxgvbjdawtuw-capsul es OR - 2 per day Celebrate Multi-ADEK with Iron Chewable Tablets AND 4751-9681 mg per day Calcium Citrate https://SmartDrive Systems.Magic Leap/pr oducts/svivu-nxaa-gayt-iron?vari wfs=[id number] [id number] OR -1 per day ProCare DS/LEIDA Bariatric Multivitamin with 60 mg Iron AND 8936-4442 mg per day Calcium Citrate https://Humanoid/procare-h cahfa-pewa-lldiw-bariatric-multi vitamin-cap fmol-kx-ztie/?sku=Vit-BariCapsDS -LEIDA-30ct S-LEIDA-30ct Nutrition Monitoring AND Evaluation: Weight [...] ADEK Complete Capsule (3x per day) AND 6629-1603 mg calcium citrate https://www.bariatricfusion.com/ collections/adek/products/bariat libby-multivi vmzlk-cdzh-sqnx-zjocrio-reqq-aqq n OR - Bariatric Advantage High ADEK Chewable Multivitamin (2x per day) AND 3825-2669 mg calcium citrate https://www.bariatricadvantage.c om/qmjh-mhqs-vkuabqfsheim-capsul es OR -Celebrate multi-ADEK chewable (3x per day) AND 3327-5421 mg calcium citrate AND 1 chewable Iron 45-60 mg https://AdlyebrateGC Aestheticss.Magic Leap/pr oducts/multi-adek?lfvdrsu=742270 7552925 OR -ProCare DS/LEIDA Bariatric multivitamin with 60 mg Iron (1x per day) AND 9536-2991 mg calcium citrate daily https://procaren (more content not included)... [facility] 12-15-2022 History of Presen t illness Narrative [facility] Nutrition Therapy: Virtual Consult - Re-assessment I have communicated my name and active licensure. The patient's identity and physical location were verified at the time of this visit. Either the patient or their legal telemarketing sales representative has been informed of the risks [...] mg per day Calcium Citrate https://www.bariatricfusion.com/ collections/adek/products/bariat wof-eaoqqrtnmdwf-ynzw-adek-vitam zw-qqza-jrhk OR - 2 per day Bariatric Advantage High ADEK Multivitamin Capsules AND 0569-5022 mg per day Calcium Citrate AND 45-60 mg per day Iron https://www.bariatricadvantage.c om/fshv-poyq-nslwwiponnrw-capsul es OR - 2 per day Celebrate Multi-ADEK with Iron Chewable Tablets AND 6680-3618 mg per day Calcium Citrate https://Filepicker.ios.Magic Leap/pr oducts/zxsyr-bajm-mtpl-iron?vari wte=[id number] OR -1 per day ProCare DS/LEIDA Bariatric Multivitamin with 60 mg Iron AND 4045-8857 mg per day Calcium Citrate https://Humanoid/procare-h fcavp-jqio-addcl-bariatric-multi lwhvumz-ekkhwnn-xd-leida/?sku=Vit -KkjjNxbeTD-LXRQ-51mw S-LEIDA-30ct Nutrition Monitoring & Evaluation: Weight loss [...] ADEK Complete Capsule (3x per day) AND 6886-3911 mg calcium citrate https://www.bariatricfusion.com/ collections/adek/products/bariat qsv-ndzckqlveasc-frwm-adek-vitam xs-nbei-frdx OR - Bariatric Advantage High ADEK Chewable Multivitamin (2x per day) AND 6179-3280 mg calcium citrate https://www.bariatricadvantage.c om/zuxo-oybc-pggrqbquozrj-capsul es OR -Celebrate multi-ADEK chewable (3x per day) AND 7036-5623 mg calcium citrate AND 1 chewable Iron 45-60 mg https://celebrateGC Aestheticss.com/pr oducts/multi-adek?fvqdhqh=368895 6891067 OR -ProCare DS/LEIDA Bariatric multivitamin with 60 mg Iron (1x per day) AND 2328-9948 mg calcium citrate daily https://Humanoid/procare-h zmqnn-wati-fymln-bariatric-multi xylrgzz-nrklmgo-kr-leida/?sku=Vit -NxryWqsxLH-YXQW-13uu 2. Protein goal: 77 grams protein/day. Protein [...] Advanced Nutrition OR 5.5 packets/day Light Start [place] Breakfast Essentials mixed with 1% or skim [...] SIGNATURE: Mireille Dao RD PATIENT NAME: Susi Jeanenship DATE: 12/15/2022 TIME: 3:08 PM PAGER: documented in this encounter [facility] 12-13-2022 Evaluation note Encounter Date Diagnosis [...] that time. Patient verbalized understanding treatment plan. [employer] Other 06-07-2023 History of Present illness Narrative* Heidy Dsouza [...] selecting actual surgery date. Heidy Dsouza RN Tassel Snipper for Cony Soler MD Covering for Joe Granda MD documented in [facility] encounter[facility] NoteEXAMINATION: XR CHEST 2 V HISTORY: [...] Electronically authenticated by: DARREL NICHOLS Date: 2022-08-12 15:04[facility]12-07-2022 Instructions* Patient Instructions* Amina Nieto MD - 06/04/2022 6:53 PM EST INSTRUCTIONS: 1) Please contact me (Dr. Nieto) if you have not heard about your test results within a few days after you had them done. Thank you: Contact information: [facility] [place] [facility]/Attention: Dr. Nieto [address] [place] [address] 2) Please check with your insurance company regarding cost/coverage of any tests ordered prior to having them completed. Edinson Ortiz , Thank you for completing your visit today and we welcome you to the surgical program. We are sure that you will still have some additional questions and encourage you to reach out to your care provider via [employer]Vasc OR your Patient Navigator. Patient Navigators are assigned alphabetically by patient last name. The contact information for each Navigator is listed below. Last names A-E= Kody Last names F-L = Joanna- Last names M-R= Alma- Last names S-Z= JesusitaMike Additionally, you may find many of the [...] free to ask for a hard copy. [email or web address] Once you complete all of the requirements (testing, consultations, diet, etc) from each provider, please call [phone] and select option #5 to initiate insurance approval. Please note scheduling information It is important to keep track of your scheduled appointments to ensure successful completion of oursurgical program. Any missed appointments can further delay your pre-surgical work-up. [facility] does offer an opt-in option for getting text message appointment reminders. Please follow the link below if you would like to opt into this service. [email or web address] As part of your surgical work up, [...] these tests. You may call your local [facility] to get an appointment. - Lab work- No appointment is needed for this, you may complete at any [facility] Laboratory.These are usually fasting labs, please be sure to fast (only water permitted) for 10-12 hours priorto the test. -Sleep Study- Please call [phone] or [phone] to get this appointment set up. -Sleep Medicine Consult- (Only needed if sleep study confirms sleep apnea) Please call [phone] [phone] to schedule an appointment. Any testing that is completed outside of [facility] will need faxed to [phone]. 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) -tobacco use: non-smoker -ETOH: doesn't drink ALL: SEe Epic LABS: IMAGING: PROC: CARDIAC: MEDS: See Epic PMH: -bipolar/depression/anxiety-on Abilify, Buspar, on Lamictal, Mini-press, [...] cardiac, valvular or vascular issues *no h/o CA, CHF, CAD, no cp/palpitations Respiratory: Denies any [...] -she had labs done at her local facility-[facility]; check remaining presurgical labs, CXR, EKG (had recent CT abd); will try to get the labs from [facility]; Will mail her orders so she can get them done locally and try to obtain recent labs from [facility] 2)Sleep disordered breathing: external sleep study scanned in Epic-+TONEY -check sleep study and refer to Sleep medicine-she will try to have these done locally. Amina Nieto MD I spent a total of 45 minutes on the date of the service which included preparing to see the patient, qqrb-rj-etov patient care, completing clinical documentation, obtaining and/or reviewing separately obtained history, counseling and educating the patient/family/caregiver, ordering medications, keli ts, or procedures, and care coordination (not separately reported). documented in this encounterJoint [facility]11[facility] Miscellaneous Notes* Telephone Encounter - Pao [...] Hodgson RN * Telephone Encounter - Pao Hogdson RN - 05/09/2022 4:[address] [...] better option for her for weight loss half-way. Pao Hodgson RN * Telephone Encounter - Jessica Rodriguez - 05/01/2022 1:55 PM EDT Pt has questions regarding upcoming surgery PH: [phone] documented in this encounterJoint [facility]11-[facility]-2022 Miscellaneous Notes* Telephone Encounter - Pao [...] she does the right procedure forher needs. BMI navigator notified. Pao Hodgson RN * Telephone [...] switch. Joe Granda MD documented in this encounterJoint [facility]10-[facility]-2022 Miscellaneous Notes* Telephone Encounter - Pao Hodgson RN - 04/18/2022 1:34 PM EDT [facility] SPECIALTY CARE COORDINATION SURGERY SCHEDULING CALL Received e-mail confirmation of insurance approval for bariatric surgery.Pre- operative call placed to the patient, this RN spoke with patient and agreed upon a surgery date of June 10 2022. Surgical episode request sent to [facility] surgery scheduling. Patient understands that the surgery type is partial gastrectomy with gastrojejunostomy . Creatinine level pending results Patient instructed to start pre-op 800 calorie total protein liquid diet daily beginning 2 weeks prior to surgery provided creatinine is in range. - Stop all ASA and NSAID products, [place] 3 fish oil, herbal products such as [...] prior testing. - Pt instructed to fax FMLA forms to [phone] and allow 7-10 days for completion. Deandra video assigned and Pt will view Drop video during pre-op nurse visit. All questions and concerns addressed and patient verbalized understanding. - Patient case reviewed. All nutrition appointments completed, psychology clearance obtained, surgeon visit and procedure type verified, medical optimization obtained and all testing complete. Con ABO No, to be ordered Pao Foster, RN documented in this encounterJoint [facility]10-[facility] History of Present illness Narrative* Joe [...] which included preparing to see the patient, jhat-va-wagf patient care, and completing clinical documentation, test ordering, care coordination. Joe Granda MD documented in this encounterJoint [facility]10-19-2022 Evaluation note* Encounter Date Diagnosis Assessment [...] Mar, Right foot pain (ICD-10 - M79.671) [employer] Other 10-14-2022 NotePROCEDURE: XR GI UPPER W [...] Electronically authenticated by: ESTELLA WHITEHEAD Date: 2022-04-11 10:21[facility]10-14-2022 NotePROCEDURE: XR GI UPPER W KUB [...] Electronically authenticated by: ESTELLA WHITEHEAD Date: 2022-04-11 10:21[facility]09-29-2022 Evaluation note* Encounter Date Diagnosis Assessment Notes Treatment Notes Treatment Clinical Notes Feb, Gastroesophageal ref lux disease, esophagitis presence not specified (ICD-10 - K21.9) [employer] Other 09-12-2022 History of Present illness Narrative* Joe Granda MD - 03/10/2022 3:37 PM EDT VIRTUAL VISIT PROGRESS NOTE This is a virtual visit using Unveil video visit. It required patient-provider interaction for themedical decision making as documented below. Susi Donya Ortiz is a 36 year old female [...] which included preparing to see the patient, rhfw-nu-prcx patient care, completing clinical documentation, obtaining and/or reviewing separately obtained history, and care coordination (not separately reported) Joe Granda MD documented in this encounterJoint [facility]08-17-2022 NoteHNO ID: [id number] Author: EUSEBIA Solo Service: Radiology Author Type: [...] BY: EUSEBIA SOLO February 12, 2022 2:58 [id number] History of Present illness Narrative* EUSEBIA Solo [...] 12, 2022 2:58 PM documented in this encounterJoint [facility]08-17-2022 Nurse Note* Elizabeth Stephens RN - [...] 2022 TIME: 2:30 PM documented in this encounterJoint [facility]07-25-2022 History of Present illness Narrative* Joe Granda MD - 01/20/2022 2:37 PM EDT VIRTUAL VISIT PROGRESS NOTE This is a virtual visit using Unveil video visit. It required patient-provider interaction for [...] for this visit. ALLERGIES Allergen Reactions Adhes. Djvv-Sxfk-Li* Rash Adhesive Tape-Silic* Rash Augmentin [Amoxicil* Diarrhea [...] which included preparing to see the patient, pjqw-fd-eewd patient care, completing clinical documentation, obtaining and/or reviewing separately obtained history, performing a medically appropriate examination, counseling and educating the pat ient/family/caregiver, ordering medications, tests, or procedures, communicating with other HCPs (not separately reported) and care coordination (not separately reported) Joe Granda MD documented in this encounterJoint [facility] Hospital07-22-2022 History of Present illness Narrative* Alex Macarioi, RD - 01/17/2022 9:12 AM EDT AMBULATORY [...] and 4 hours apart from additional calcium www.Path LogicareChurn Labs.Magic Leap - Bariatric Choice: 4 Complete Multivitamins (chewables) [...] Slim Fast Advanced Nutrition OR Light Start [place] Breakfast Essentials mixed with 1% or skim [...] intake at meals and snacks Please call [phone], option 5. Leave a message for the navigation team when you are finishedwith all clearances (nutrition, psychology, medical, surgeon) 1.Starting ~3 weeks after surgery take: daily multivitamin Vit D3 3,000 international unit(s) Vit B12 500 mcg Vit B1 20-100 mg Iron 45 mg Calcium CITRATE 8714-2652 mg/day OR It is okay to use combination vitamin/minerals to reduce pill volume. (Examples [employer] Bariatric Multivitamin- 45 (1) chewable/day AND 9765-6320 mg calcium citrate OR Bariatric Fusion chewable complete bariatric vitamin (2) chews, twice daily. IF DS: - Bariatric Fusion ADEK Complete Capsule (3x per day) AND 0184-2875 mg calcium citrate OR - Bariatric Advantage High ADEK Chewable Multivitamin (2x per day) AND 1294-1106 mg calcium citrate OR -Celebrate multi-ADEK chewable (3x per day) AND 7407-6054 mg calcium citrate AND 1 chewable Iron [...] Advanced Nutrition OR 5.5 packets Light Start [place] Breakfast Essentials mixed with 1% or skim [...] by: Alex Monsivais RD documented in this encounterJoint Township District Memorial Hospital07-22-2022 Instructions* Patient Instructions* Alex Monsivais RD - 01/17/2022 9:12 AM EDT Please call [phone], option 5. Leave a message for the navigation team when you are finishedwith all clearances (nutrition, psychology, medical, surgeon) 1.Starting ~3 weeks after surgery take: daily multivitamin Vit D3 3,000 international unit(s) Vit B12 500 mcg Vit B1 20-100 mg Iron 45 mg Calcium CITRATE 2657-8309 mg/day OR It is okay to use combination vitamin/minerals to reduce pill volume. (Examples [facility] Bariatric Multivitamin- 45 (1) chewable/day AND 9379-0425 mg calcium citrate OR Bariatric Fusion chewable complete bariatric vitamin (2) chews, twice daily. IF DS: - Bariatric Fusion ADEK Complete Capsule (3x per day) AND 0448-0511 mg calcium citrate OR - Bariatric Advantage High ADEK Chewable Multivitamin (2x per day) AND 7003-5869 mg calcium citrate OR -Celebrate multi-ADEK chewable (3x per day) AND 2793-7191 mg calcium citrate AND 1 chewable Iron [...] Advanced Nutrition OR 5.5 packets Light Start [place] Breakfast Essentials mixed with 1% or skim [...] up: 2 weeks pre-op documented in this encounterJoint [facility]06-22-2022 History and physical note * Joe [...] SIGNATURE: Joe Granda MD PATIENT NAME: Susi Naqvi Ortiz DATE: December 18, 2021 TIME: 12:10 PM * Melissa Olivas PA-C - 12/05/2021 1:10 PM EDT HISTORY AND PHYSICAL EXAMINATION SERVICE DATE: 12/05/2021 SERVICE TIME: 1:12 PM PRIMARY CARE PHYSICIAN: Geneva Estrada, ENTRY LEVEL, ENTRY LEVEL This is a virtual visit using alternative [...] Body Mass Index of 60.0-69.9 in Adult ([facility]) COVID-19 Immunization Status Overdue - COVID-19 VACCINE [...] Negative for: dysuria, frequent urination and hematuria. NEWSPAPER EDITOR: +amenorrhea with IUD Endocrine: Negative for: diabetes [...] medication comments found. ALLERGIES Allergen Reactions Adhes. Ylhc-Sryk-Cr* Rash Adhesive Tape-Silic* Rash Augmentin [Amoxicil* Diarrhea [...] or any previous visit (from the past 02854 hour(s)). Assessment TONEY on CPAP Assessment: not currently using CPAP Thrombocytosis ([facility]) Assessment: s/p splenectomy in 2014, last labs available in [facility]where from 01/2021 showing platelets at 488, plan to discuss with Dr. Granda for review. Bipolar affective disorder (HCC) Assessment: stable on current rx per patient Gastroesophageal reflux disease Assessment: on PPI and sucralfate Morbid obesity with body mass index of 60.0-69.9 in adult ([facility]) Assessment: Body mass index is 66.09 kg/m . Dugan Activity Status Index: METS: Climb a flight of stairs or walk up a hill (5.50 METs) DASI Score: 5.5 Patient denies any chest pain or undue shortness of breath with the above physical activity. Clinical Frailty Scale: 3. Well, with treated comorbid disease [id number] Score: Age: <65 Sex: female [id number] Score: 1 ARISCAT Score: Age: <=50 ARISCAT [...] 1:10 PM PAGER/CONTACT #: documented in this encounterJoint [facility] History of Present illness Narrative* Akosua Peraza RD - 12/05/2021 11:45 AM EDT No show for nutrition appointment on 12/05/21. Signed by: Akosua Peraza RD documented in this encounterJoint [facility]05-[facility] Evaluation note* Encounter Date Diagnosis Assessment [...] sprain elsa e care material was printed [employer] Other 05-11-2022 History of Present illness Narrative* Joe Granda MD - 11/06/2021 9:40 AM EDT Assessment NEW BARIATRIC PATIENT PATIENT NAME: Susi Ortiz REASON FOR CONSULT: Morbid Obesity REQUESTING PHYSICIAN: Self DATE of SERVICE: 11/06/2021 TIME of SERVICE: 9:40 AM PCP: Geneva Estrada, ENTRY LEVEL, ENTRY LEVEL CC: Morbid Obesity HPI: Ms. Ortiz is a 36 year old female who is seen for 2 issues. One is for reflux after sleeve gastrectomy. The other is persistent morbid obesity. In 2016 this patient underwent a laparoscopic sleeve gastrectomy [...] use: Never ALLERGIES: ALLERGIES Allergen Reactions Adhes. Exmb-Nqph-He* Rash Adhesive Tape-Silic* Rash Augmentin [Amoxicil* Diarrhea [...] which included preparing to see the patient, suib-ms-oioc patient care, completing clinical documentation, obtaining and/or reviewing separately obtained history, ordering medications, tests, or procedures and care coordination (not separately reported). Joe Granda MD documented in this encounterJoint [facility]05-09-2022 Instructions* Patient Instructions* Alex Monsivais, RD [...] and 4 hours apart from additional calcium www.[email or web address] [email or web address].Magic Leap - Bariatric Choice: 4 Complete Multivitamins (chewables) [...] Slim Fast Advanced Nutrition OR Light Start [place] Breakfast Essentials mixed with 1% or skim milk OR Atkins Protein Shakes (15 gm protein version) OR Glucose Controlled Boost Pre-op goal weight: 380 pounds - per Dr. Granda Protein needs: 77 gm per day Nutrition Monitoring & Evaluation: 1-2 # weight loss per week prior to surgery Criteria: Weight check Need for Follow up: 1 month, [phone] documented in this encounterJoint [facility]05-09-2022 History of Present illness Narrative* Alex [...] Your Guide to Surgery by next session [email or web address] n 2. Do not skip meals. [...] AM, 2 in the PM). www.bariatricfusion.com - [facility]: 1 Bariatric Multivitamin and Calcium Citrate (total of 1200- 1500 mg/day) * take calcium citrate separately from Multivitamin with iron at least 2 hours apart and 4 hours apart from additional calcium www.Path LogicarenoFrequency.Magic Leap - Bariatric Choice: 4 Complete Multivitamins (chewables) per day Www.bariatricchoice.com - Bariatric Advantage: 2 Multivitamins and 3 Calcium Citrate Chewables per day * take calcium citrate separately from Multivitamin with iron at least 2 hours apart and 4 hours apart from additional calcium. Www.bariatricadvantage.com For reflux: 1. Try to eat something every 2-3 hours and do not skip meals. Large meals may increase stomach pressure and make your reflux worse. 2. Avoid possible trigger foods as follows: Caffeine (regular coffee, regular tea) Carbonated beverages Mints (peppermint, spearmint) Fried, greasy foods Garlic and onions [place] fruits, juices Alcohol Tomato products Spicy foods Chocolate 3. Drink at least 8-12 cups of non-caffeinated, non-carbonated, alcohol-free fluids daily. 4. Sit upright while eating and for 45-60 minutes afterward. 5. Avoid eating at least three hours before bedtime. 6. Incorporate walking daily as discussed. Pre-op goal weight: [address] Gradna Protein needs: 77 gm per day CHANGES [...] in the AM, 2 in the PM) www.bariatricfusion.Magic Leap - [facility]: 1 Bariatric Multivitamin and Calcium Citrate (total of 1200- 1500 mg/day) * take calcium citrate separately from Multivitamin with iron at least 2 hours apart and 4 hours apart from additional calcium www.Humanoid - Bariatric Choice: 4 Complete Multivitamins (chewables) per day Www.bariatricBadoo.Magic Leap - Bariatric Advantage: 2 Multivitamins and 3 Calcium Citrate Chewables per day * take calcium citrate separately from Multivitamin with iron at least 2 hours apart and 4 hours apart from additional calcium Www.bariatricadvantage.Magic Leap 2. Do not skip meals. 3. Use [...] Slim Fast Advanced Nutrition OR Light Start [place] Breakfast Essentials mixed with 1% or skim milk OR Atkins Protein Shakes (15 gm protein version) OR Glucose Controlled Boost Pre-op goal weight: 380 pounds - per Dr. Granda Protein needs: 77 gm per day Nutrition Monitoring & Evaluation: 1-2 # weight loss per week prior to surgery Criteria: Weight check Need for Follow up: 1 month, [phone] Group Appointment Start Time: 11:45 AM Group Appointment End Time: 12:29 PM Time Spent on Consult: 44 minutes - Group Signed by: Alex Monsivais RD documented in this encounterJoint [facility]05-02-2022 Evaluation note* Encounter Date Diagnosis Assessment Notes Treatment Notes Treatment Clinical Notes October, Gastroesophageal ref lux disease, esophagitis presence not specified (ICD-10 - K21.9) [facility] [employer] Other 04-15-2022 Evaluation note* Encounter Date Diagnosis Assessment Notes Treatment Notes Treatment Clinical Notes Sep, Other d/t progessi vely worsening shortness of breath and hypoxia, patient was recommended to go to ER for higher acuity care [facility] [employer] Other 04-07-2022 Evaluation note* Encounter Date Diagnosis [...] ramon lt home care material was printed [employer] Other 04-04-2022 History of Present illness Narrative* 09/30/2021 * 9:15AM * SUSI ORTIZ , 36 year is contacted for an (audio-visual, or audio only) Telehealth visit. * Today's visit was provided through telemedicine conferencing: Using Inveni platform. * Consent: * The concept of [...] She went in for evaluation with her REGISTERED NURSING PROFESSOR in early January 2021, and was subsequently found to have a complex ovarian cyst. She was taken for surgery at [facility] later that month, and reports that the [...] cyst removed from her right ovary in 2019, which was also performed at [facility]. 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 We are sure that you will still have some additional questions and encourage you to reach out to your care provider via NanoV[employer] OR your Patient Navigator. Patient Navigators are assigned alphabetically by patient last name. The contact information for each Navigator is listed below. Last names A-E= Malorie Last names F-L = JoannaMike Last names M-R= Neida Last names S-Z= [...] free to ask for a hard copy. [email or web address] Once you complete all of the requirements (testing, consultations, diet, etc) from each provider, please call [phone] and select option #5 to initiate insurance approval. Please note scheduling information It is important to keep track of your scheduled appointments to ensure successful completion of oursurgical program. Any missed appointments can further delay your pre-surgical work-up. [facility] does offer an opt-in option for getting text message appointment reminders. Please follow the link below if you would like to opt into this service. [email or web address] As part of your surgical work up, [...] follow up visit or rescheduling, Please call [phone] OR [phone] Any testing that is completed outside of [facility] will need faxed to [phone]. We look forward to working with you on this journey, Jayshree Huffman APRN.KTATY documented in this encounterJoint Township District [facility]03-28-2022 History of Present illness Narrative* Jayshree [...] to severe GERD. Sleeve in 2016 at [facility], in [place]. 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 ALLERGIES Allergen Reactions Adhes. Vckf-Qdnl-Oa* Rash Adhesive Tape-Silic* Rash Augmentin [Amoxicil* Diarrhea [...] which included preparing to see the patient, rnat-ym-furb patient care, completing clinical documentation, obtaining and/or reviewing separately obtained history, counseling and educating the patient/family/caregiver, ordering medications, keli ts, or procedures and communicating with other HCPs (not separately reported). Medical Decision Making Jayshree Huffman APRN.CNP documented in this encounterJoint [facility]11-19-2021 History and physical note * Humza [...] a sleeve gastrectomy done in 2017 at [facility]. Her preop weight was 380 lbs. [...] Laterality Date CHOLECYSTECTOMY GASTRECTOMY LONGITUDINAL (SLEEVE) LAPAROSCOPIC 2017 OVARIAN CYST REMOVAL x2 RELEASE CARPAL TUNNEL [...] Minimally Invasive General Surgery documented in this encounterCincinnati Shriners HospitalChief complaint Narrative - Reported* An interactive audio and video telecommunication system which permits real time communications between the patient (at the originating site) and provider (at the distant site) was utilized to providethis telehealth service. * The patient is being seen today for a New Patient Visit regarding Cyst on Right Ovary. [facility] [address] [facility] Work Phone: Evaluation note* Diagnosis S/P laparoscopic sleeve gastrectomy- Primary TONEY on CPAP Obstructive sleep apnea (adult) (pediatric) Morbid obesity with body mass index of 50 or higher Gastroesophageal reflux disease, unspecified whether esophagitis present Screening for viral disease Special screening examination for unspecified viral disease Other intestinal malabsorption [facility] Diagnosis Gastroesophageal reflux disease, unspecified whether esophagitis present- Primary Class 3 severe obesity with serious comorbidity and body mass index (BMI) of 60.0 to 69.9 in adult, unspecified obesity type (HCC) TONEY on CPAP Obstructive sleep apnea (adult) (pediatric) S/P laparoscopic sleeve gastrectomy Bariatric surgery status Postoperative malabsorption Other and unspecified postsurgical nonabsorption [facility] Diagnosis Dysphagia, unspecified type- Primary Gastroesophageal reflux disease, unspecified whether esophagitis present History of sleeve gastrectomy documented in this encounter [facility] note* Diagnosis History of sleeve gastrectomy- Primary BMI 70 and over, adult (HCC) Body Mass Index 70 and over, adult Dietary counseling and surveillance Dietary surveillance and counseling documented in this encounter [facility] note* Diagnosis History of sleeve gastrectomy- Primary Gastric fistula Fistula of stomach or duodenum documented in this encounter [facility] note* Diagnosis NO SHOW- Primary documented in this encounter [facility] note* Diagnosis TONEY on CPAP Obstructive sleep apnea (adult) (pediatric) Gastroesophageal reflux disease, unspecified whether esophagitis present S/P laparoscopic sleeve gastrectomy Bariatric surgery status documented in this encounter [facility] noteNo [facility] [employer] Other Evaluation note* Diagnosis Gastroesophageal reflux disease, unspecified whether esophagitis present- Primary BMI 70 and over, adult (HCC) Body Mass Index 70 and over, adult History of sleeve gastrectomy Dietary counseling and surveillance Dietary surveillance and counseling documented in this encounter [facility] note* Diagnosis Epigastric pain- Primary Abdominal pain, epigastric Gastroesophageal reflux disease without esophagitis Esophageal reflux History of sleeve gastrectomy documented in this encounter [facility] note* Diagnosis History of sleeve gastrectomy 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 Work Phone: Evaluation note* Diagnosis Gastroesophageal reflux disease, unspecified whether esophagitis present- Primary BMI 70 and over, adult (HCC) Body Mass Index 70 and over, adult documented in this encounter [facility] note* Diagnosis Morbid obesity with body mass index of 60.0-69.9 in adult (HCC)- Primary Morbid obesity Gastroesophageal reflux disease, unspecified whether esophagitis present BMI 70 and over, adult (HCC) Body Mass Index 70 and over, adult Gastroesophageal reflux disease, unspecified whether esophagitis present documented in this encounter [facility] note* Diagnosis Morbid obesity with body mass index of 60.0-69.9 in adult ([facility])- Primary Morbid obesity documented in this encounter [facility] note* Diagnosis Weight disorder- Primary Other symptoms concerning nutrition, metabolism, and development BMI 70 and over, adult ([facility]) Body Mass Index 70 and over, adult Preop testing Preoperative examination, unspecified Abnormal weight gain Snoring Other dyspnea and respiratory abnormality Sleep-disordered breathing Other sleep disturbances Fatigue, unspecified type S/P bariatric surgery Bariatric surgery status documented in this encounter [facility] note* Diagnosis Morbid obesity with BMI of 70 and over, adult ([facility])- Primary Morbid obesity documented in this encounter [facility] note* Diagnosis S/P gastric sleeve procedure- Primary Weight gain following gastric bypass surgery BMI 60.0-69.9, adult ([facility]) Body Mass Index 60.0-69.9, adult Dietary counseling and surveillance Dietary surveillance and counseling documented in this encounter [facility] note* Diagnosis Weight gain following gastric bypass surgery- Primary Abnormal weight gain Preop testing Preoperative examination, unspecified Snoring Other dyspnea and respiratory abnormality Sleep-disordered breathing Other sleep disturbances Fatigue, unspecified type S/P bariatric surgery Bariatric surgery status S/P gastric sleeve procedure Dietary counseling and surveillance Dietary surveillance and counseling BMI 60.0-69.9, adult ([facility]) Body Mass Index 60.0-69.9, adult documented in this encounter [facility] note* Diagnosis Pre-op evaluation- Primary Preoperative examination, unspecified Morbid obesity with body mass index of 60.0-69.9 in adult ([facility]) Morbid obesity Gastroesophageal reflux disease, unspecified whether esophagitis present TONEY on CPAP Obstructive sleep apnea (adult) (pediatric) Bipolar affective disorder, remission status unspecified ([facility]) Thrombocytosis Essential thrombocythemia Migraine without status migrainosus, not intractable, unspecified migraine type documented in this encounter [facility] note* Diagnosis Patient left without being seen- Primary Surgical or other procedure not carried out because of patient's decision documented in this encounter [facility] note* Diagnosis S/P gastrointestinal surgery, follow-up exam- Primary Follow-up examination, following other surgery Status post biliopancreatic diversion with duodenal switch Post-operative nausea and vomiting Nausea with vomiting documented in this encounter [facility] note* Diagnosis Impaired intestinal absorption- Primary Unspecified intestinal malabsorption S/P biliopancreatic diversion with duodenal switch Class 3 severe obesity with body mass index (BMI) of 60.0 to 69.9 in adult, unspecified obesity type, unspecified whether serious comorbidity present (HCC) Dietary counseling and surveillance Dietary surveillance and counseling [facility] Diagnosis S/P bariatric surgery- Primary Bariatric surgery status Body mass index (BMI) 60.0-69.9, adult ([facility]) Dietary counseling and surveillance Dietary surveillance and counseling documented in this encounter [facility] note* Diagnosis S/P gastrointestinal surgery, follow-up exam- Primary Follow-up examination, following other surgery S/P biliopancreatic diversion with duodenal switch Open abdominal incision with drainage, subsequent encounter Impaired intestinal absorption Unspecified intestinal malabsorption Class 3 severe obesity with body mass index (BMI) of 60.0 to 69.9 in adult, unspecified obesity type, unspecified whether serious comorbidity present (HCC) documented in this encounter [facility] note* Diagnosis S/P bariatric surgery- Primary Bariatric surgery status Impaired intestinal absorption Unspecified intestinal malabsorption Body mass index (BMI) 60.0-69.9, adult ([facility]) Dietary counseling and surveillance Dietary surveillance and counseling documented in this encounter [facility] note* Diagnosis Encounter for surgical aftercare following surgery of digestive system- Primary Aftercare following surgery of the teeth, oral cavity and digestive system, NEC Impaired intestinal absorption Unspecified intestinal malabsorption S/P biliopancreatic diversion with duodenal switch Iron deficiency Iron deficiency anemia, unspecified Dietary zinc deficiency Mineral deficiency, not elsewhere classified Vitamin D deficiency Unspecified vitamin D deficiency S/P bariatric surgery Bariatric surgery status documented in this encounter [facility]* Diagnosis BMI 60.0-69.9, adult (HCC)- Primary Body Mass Index 60.0-69.9, adult S/P bariatric surgery Bariatric surgery status documented in this encounter [facility] Narrative - Reported* Type Description Date Medical History GERD Medical History depression Medical History bi-polar Medical History herniated disc Medical History pituitary microadenoma 3 mm Medical History migraines Medical History Fibromyalgia Surgical History cholecystectomy 2007 Surgical History Procedure:Carpal Tunnel 2009, 2 010 Surgical History bilat carpal tunnel Surgical History Procedure:Gall Bladder 2007 Surgical History diskectomy x's 2 Surgical History Procedure:Back surgery 2011, 20 13 Surgical History spleenectomy 11/06/2014 Surgical History splenectomy 11/06/2014 Surgical History tonsillectomy Surgical History tonsillectomy 10/08/2015 Surgical History gastric sleeve Surgical History Gastric Sleeve 05/2017 Surgical History cyst removed from right ovary. Hospitalization History [facility] 2 Hospitalization History SEE ABOVE SURGERY [employer] Other History general Narrative - Reported* Type Description Date Medical History GERD Medical History depression Medical History bi-polar Medical History herniated disc Medical History pituitary microadenoma 3 mm Medical History migraines Medical History Fibromyalgia Surgical History cholecystectomy 2007 Surgical History bilat carpal tunnel Surgical History Procedure:Gall Bladder 2008 Surgical History diskectomy x's 2 Surgical History Procedure:Back surgery Surgical History 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 Hospitalization History [facility] X'[facility] 2 Hospitalization History SEE ABOVE SURGERY [employer] Other Reason for referral (narrative)* Diagnostic Procedure Only (Routine) - Pending Review Specialty Diagnoses / Procedures Referred By Tiarra somers Referred To Contact XR IMAGING Diagnoses Gastroesophageal reflux disease, unspecified whether esophagitis present S/P laparoscopic sleeve gastrectomy Class 3 severe obesity with serious comorbidity and body mass index (BMI) of 60.0 to 69.9 in adult, unspecified obesity type (HCC) Procedures XR UPPER GI SINGLE CONTRAST RADIOLOGIC EXAM UPR GI TRC SINGLE CONTRAST STUDY Jayshree Huffman APRN.CNP [address] [place] [address] Xr Imaging Referral ID Status Reason Start Date Expiration Date Visits Requested Visits Authorized [id number] Pending Review Auto-Generat ed Referral 09/23/2021 10/23/2022 1 1 * Outpatient Procedure (Routine) - Pending Review Specialty Diagnoses / Procedures Referred By Tiarra somers [facility] Diagnoses TONEY on CPAP Gastroesophageal reflux disease, unspecified whether esophagitis present Class 3 severe obesity with serious comorbidity and body mass index (BMI) of 60.0 to 69.9 in adult, unspecified obesity type (HCC) Postoperative malabsorption Procedures ECG COMPLETE ECG ROUTINE ECG W/LEAST 12 LDS W/I&R Jayshree Huffman APRN.ENTRY LEVEL [address] [place] [address] [id number] [place] [address] Referral ID Status Reason Start Date Expiration Date Visits Requested Visits Authorized [id number] Pending Review Auto-Generat ed Referral 09/23/2021 09/23/2022 1 1 [facility] for referral (narrative)* Outpatient Procedure (Routine) - Closed Specialty Diagnoses / Procedures Referred By Tiarra somers Referred To Contact [facility] Diagnoses TONEY on CPAP Gastroesophageal reflux disease, unspecified whether esophagitis present S/P laparoscopic sleeve gastrectomy Procedures EGD DIAGNOSTIC ESOPHAGOGASTRODUODENOSCO PY TRANSORAL DIAGNOSTIC Jayshree Huffman APRN.ENTRY LEVEL [address] [place] [address] [address] Referral ID Status Reason Start Date Expiration Date V isits Requested Visits Authorized [id number] Closed Auto-Generate d Referral 09/24/2021 09/24/2022 1 1 [facility] for referral (narrative)* Outpatient Procedure (Routine) - Pending Review Specialty Diagnoses / Procedures Referred By Tiarra somers Referred To Contact [facility] Diagnoses Abnormal weight gain Preop testing Snoring Sleep-disordered breathing Fatigue, unspecified type S/P bariatric surgery BMI 70 and over, adult (HCC) Procedures ECG COMPLETE ECG ROUTINE ECG W/LEAST 12 LDS W/I&R Amina Nieto MD [address] [place] [address] [facility] [address] [place] [id number] Referral ID Status Reason Start Date Expiration Date Visits Requested Visits Authorized [id number] Pending Review Auto-Generat ed Referral 06/04/2022 05/31/2023 1 1 * Consult, Test, Treat (Routine) - Authorized Specialty Diagnoses / Procedures Referred By Tirara somers Referred To Contact Diagnoses Abnormal weight gain Preop testing Snoring Sleep-disordered breathing Fatigue, unspecified type S/P bariatric surgery BMI 70 and over, adult (HCC) Procedures CONSULT TO SLEEP MEDICINE - ADULT OFFICE/OUTPATIENT [facility] MDM 60-74 MINUTES Amina Nieto MD [address] [place] [address] Referral ID Status Reason Start Date Expiration Date Visits Requested Visits Authorized [id number] Authorized PCP Requested Referral 06/04/2022 05/31/2023 1 1 [facility] for referral (narrative)* Outpatient Procedure (Routine) - Pending Review Specialty Diagnoses / Procedures Referred By Tiarra somers Ref[facility] Diagnoses Pre-op evaluation Morbid obesity with body mass index of 60.0-69.9 in adult (HCC) Gastroesophageal reflux disease, unspecified whether esophagitis present TONEY on CPAP Bipolar affective disorder, remission status unspecified ([facility]) Thrombocytosis Migraine without status migrainosus, not intractable, unspecified migraine type Procedures ECG COMPLETE ECG ROUTINE ECG W/LEAST 12 LDS W/I&R Shruti Alvarado APRN.[address] [place] [address] [facility] [address] [place] [address] Referral ID Status Reason Start Date Expiration Date Visits Requested Visits Authorized [id number] Pending Review Auto-Generat ed Referral 03/10/2023 03/09/2024 1 1 [facility] for visit Narrative* Outpatient Procedure (Routine) - Closed Specialty Diagnoses / Procedures Referred By Tiarra somers Referred To Contact [facility] Diagnoses TONEY on CPAP Gastroesophageal reflux disease, unspecified whether esophagitis present S/P laparoscopic sleeve gastrectomy Procedures EGD DIAGNOSTIC ESOPHAGOGASTRODUODENOSCO PY TRANSORAL DIAGNOSTIC Nathanael, Jayshree, SLAB LIFTING ENGINEER.[address] [place] [address] [facility] [address] [place] [address] Referral ID Status Reason Start Date Expiration Date V isits Requested Visits Authorized [id number] Closed Auto-Generate d Referral 09/24/2021 09/24/2022 1 1 [facility] Summary Purpose Family History No Family [...] FoundDocuments on File Type Date Recorded Patient [place] Expl anation ACP-Advance Directive ACP-Power of Environmental Attorney Latest Code Status on File Code Status Date Activated Date Inactivated Comments Full Code 01/16/2017 11:20 PM 01/21/2017 5:23 PM Documents on File Type Date Recorded Patient [place] Expl anation ACP-Advance Directive ACP-Power of Environmental Attorney Latest Code Status on File Code Status Date Activated Date Inactivated Comments Full Code 01/16/2017 11:20 PM 01/21/2017 5:23 PM Documents on File Type Date Recorded Patient [place] Expl anation Advance Directive(s) 10/04/2015 12:43 PM Advance Directive(s) 09/25/2015 12:29 PM Documents on File Type Date Recorded Patient [place] Expl anation Advance Directive(s) 10/04/2015 12:43 PM Advance Directive(s) 09/25/2015 12:29 PM Advance Directive Response Recorded Date/ Time Advance Directives No October 07, 2 019 3:58pm Reason for Referral Status Reason Specialty Diagnoses / Procedures Referre d By Contact Referred To Contact [facility] Diagnoses S/P laparoscopic sleeve gastrectomy Procedures FL UGI FL UGI Shaylee Miles DO [address] [place] [address] Specialty Diagnoses / Procedures Referred By Contac t Referred To Contact Diagnoses S/P laparoscopic sleeve gastrectomy Gastroesophageal reflux disease, unspecified whether esophagitis present Procedures XR FLUORO UPPER GI, WATER SOLUBLE AND/OR BARIUM CONTRAST Humza Walter MD [address] [place] [address] Referral ID Status Reason Start Date Expiration Date V isits Requested Visits Authorized [id number] Auth Not Needed 05/17/2021 06/11/2022 1 1 Specialty Diagnoses / Procedures Referred By Contac t Referred To Contact Diagnoses S/P laparoscopic sleeve gastrectomy TONEY on CPAP Morbid obesity with body mass index of 50 or higher Gastroesophageal reflux disease, unspecified whether esophagitis present Other intestinal malabsorption Procedures ECG Humza Walter MD [address] [place], [place] [id number] Referral ID Status Reason Start Date Expiration Date V isits Requested Visits Authorized [id number] New Request 05/17/2021 06/11/2022 1 1 Specialty Diagnoses / Procedures Referred By Contac t Referred To Contact Psychology Diagnoses S/P laparoscopic sleeve gastrectomy TONEY on CPAP Morbid obesity with body mass index of 50 or higher Gastroesophageal reflux disease, unspecified whether esophagitis present Other intestinal malabsorption Humza Walter MD [address] [place] [address] Referral ID Status Reason Start Date Expiration Date V isits Requested Visits Authorized [id number] New Request 05/17/2021 06/11/2022 1 1 Specialty Diagnoses / Procedures Referred By Contac t Referred To Contact Nutrition and Dietetics Diagnoses S/P laparoscopic sleeve gastrectomy TONEY on CPAP Morbid obesity with body mass index of 50 or higher Gastroesophageal reflux disease, unspecified whether esophagitis present Other intestinal malabsorption Humza Walter MD [address] [place] [address] Referral ID Status Reason Start Date Expiration Date V isits Requested Visits Authorized [id number] New Request 05/17/2021 06/11/2022 1 1 Specialty Diagnoses / Procedures Referred By Contac t Referred To Contact CT IMAGING Diagnoses History of sleeve gastrectomy Gastric fistula Procedures CT ABD/PEL W IVCON CT ABD & PEL[place] [address] [place] [address] Ct Imaging Referral ID Status Reason Start Date Expiration Date Visits Requested Visits Authorized [id number] Pending Review Auto-Generat ed Referral 11/04/2021 12/04/2022 1 1 Specialty Diagnoses / Procedures Referred By Contac t Referred To Contact XR IMAGING Diagnoses History of sleeve gastrectomy Gastric fistula Procedures XR UPPER GI SINGLE CONTRAST RADIOLOGIC EXAM UPR GI [place] [address] [place] [id number] Xr Imaging Referral ID Status Reason Start Date Expiration Date Visits Requested Visits Authorized [id number] Pending Review Auto-Generat ed Referral 11/04/2021 12/04/2022 1 1 Referral ID Status Reason Start Date Expiration Date V isits Requested Visits Authorized [id number] Closed Auto-Generate d Referral 01/05/2022 06/28/2022 2 2 Specialty Diagnoses / Procedures Referred By Tiarra t Referred To Contact Diagnoses BMI 70 and over, adult (HCC) Gastroesophageal reflux disease, unspecified whether esophagitis present Procedures IN PERSON CONSULT TO PACC Jayshree Huffman APRN.[address] [place] [address] Referral ID Status Reason Start Date Expiration Date Visits Requested Visits Authorized [id number] Ref Not Required PCP Requested Referral 2 07/17/2022 1 1 Discharge Instructions * Instructions* Shaylee Miles, - 04/06/2020 POST-ENDOSCOPY INSTRUCTIONS 1. ACTIVITY No [...] questions, PLEASE call your doctor or the [facility] at documented in this [...] section and content) DATE CREATED AUTHOR 12/23/2017 [facility] DATE CREATED AUTHOR AUTHOR'S ORGANIZ ATION [facility]/29[facility] DATE CREATED AUTHOR AUTHOR'S ORGANIZ ATION 04/07/2020 [facility] DATE CREATED AUTHOR AUTHOR'S ORGANIZ ATION 04/11/2020 [facility] DATE CREATED AUTHOR AUTHOR'S ORGANIZ ATION 10/01/2021 [facility] DATE CREATED AUTHOR AUTHOR'S ORGANIZ ATION 12/11/2021 [facility] DATE CREATED AUTHOR AUTHOR'S ORGANIZ ATION 02/19/2022 [facility] DATE CREATED AUTHOR AUTHOR'S ORGANIZ ATION 11/07/2022 [facility] DATE CREATED AUTHOR AUTHOR'S ORGANIZ ATION 12/15/2022 [facility] DATE CREATED AUTHOR AUTHOR'S ORGANIZ ATION 08/18/2023 [facility] DATE CREATED AUTHOR AUTHOR'S ORGANIZ ATION 12/05/2023 [facility] DATE CREATED AUTHOR AUTHOR'S ORGANIZ ATION 12/13/2023 [facility] DATE CREATED AUTHOR AUTHOR'S ORGANIZ ATION 03/06/2024 [facility] EPIC Reason for Visit (unrecogniz ed section and content) Status Reason Specialty Diagnoses / Procedures Re ferred By Contact Referred To Contact Diagnoses Obesity OBESITY Procedures DC ESOPHAGOGASTRODUODENOSCOPY TRANSORAL DIAGNOSTIC EGD ESOPHAGOGASTRODUODENOSCOPY Kylah Vargas DO [address] [place] [phone] [facility] Reason Comments Consult Est Care/Revision/ S leeve 05/2017 Reason Comments Obesity GERD Reason Onset Date Comments Reassessment 11/04/2021 Patient Education 11/04/2021 Reason Comments New Patient Reason Comments No Show Reason Onset Date Comments Reassessment 01/17/2022 Patient Education 01/17/2022 Specialty Diagnoses / Procedures Referred By Contac t Referred To Contact Nutrition / GENERAL SURGERY Diagnoses Follow-up exam [place]/0 diet/[place]/05/2017 LSG-complications gerd Procedures PHYS/QHP TELEPHONE EVALUATION 5-10 MIN VIDEO GROUP (ZOOM) MD Yodit Jason Erin, RD [address] [place] [address] Referral ID Status Reason Start Date Expiration Date Visits Re quested Visits Authorized [id number] Closed 01/17/2022 06/28/2022 1 1 Reason Comments Obesity Specialty Diagnoses / Procedures Referred By Contac t Referred To Contact General Surgery / GENERAL SURGERY Diagnoses Follow-up exam imaging follow up Procedures PHYS/QHP TELEPHONE EVALUATION 5-10 [place] [address] [place] [address] [place] [address] [place] [address] Referral ID Status Reason Start Date Expiration Date Visits Re quested Visits Authorized [id number] Closed 01/20/2022 06/28/2022 1 1 Specialty Diagnoses / Procedures Referred By Contac t Referred To Contact CT IMAGING Diagnoses History of sleeve gastrectomy Gastric fistula Procedures CT ABD/PEL W IVCON CT ABD & PELVIS [place] [address] [place] [address] Ct Imaging Referral ID Status Reason Start Date Expiration Date V isits Requested Visits Authorized [id number] Closed Auto-Generate d Referral 01/05/2022 06/28/2022 2 [...] CONSULT TO SLEEP MEDICINE - ADULT OFFICE/OUTPATIENT [facility] 60-74 MINUTES Amina Nieto MD [address] [place] [address] Referral ID Status Reason Start Date Expiration Date V isits Requested Visits Authorized [id number] Closed PCP Requested Referral 06/04/2022 05/31/2023 1 1 Reason Comments Anesthesia Consult Specialty Diagnoses / Procedures Referred By Contac t Referred To Contact ANESTHESIOLOGY Diagnoses Preop examination Procedures PREOP ANES OR PROXY B/4 [place]G [place] Granda MD [address] [place] [address] Pre Anes Main [address] [place] [address] Referral ID Status Reason Start Date Expiration Date V isits Requested Visits Authorized [id number] Authorized 06/29/2022 06/28/2023 99 99 Reason Comments Patient Left Without Being Seen Specialty Diagnoses / Procedures Referred By Contac t Referred To Contact ANESTHESIOLOGY Diagnoses Preop examination Procedures PREOP ANES OR PROXY B/4 SURG Joe Granda MD [address] [place] [address] Pre Anes Main [address] [place] [address] Reason Comments Post Op Reason Comments Post Op 7-10 day gastrectomy Reason Comments Post Op S/p BPD/DS 2/6/24 Reason Comments Follow Up Weight Loss Surgery Reason Comments Refill Request Care Teams (unrecognized sec tion and content) Development Writer Relationship Specialty Start Date End Date KieshaElizabet readDO [address] [place] [address] PCP - General Family Medicine 03/21/21 Development Writer Relationship Specialty Start Date End Date Geneva Estrada, [address] [place] [address] PCP - General Family Practice 10/01/11 Development Writer Relationship Specialty Start Date End Date [facility], [address] [place] [address] PCP - General Family Practice 10/01/11 Development Writer Relationship Specialty Start Date End Date Geneva Estrada, [address] [place] [address] PCP - General Family Practice 10/01/11 Development Writer Relationship Specialty Start Date End Date Geneva Estrada, EN[address] [place] [address] PCP - General Family Practice 10/01/11 Development Writer Relationship Specialty Start Date End Date Geneva Estrada, EN[address] [place] [address] PCP - General Family Practice 10/01/11 Development Writer Relationship Specialty Start Date End Date Geneva Estrada, EN[address] [place] [address] PCP - General Family Practice 10/01/11 Development Writer Relationship Specialty Start Date End Date Geneva Estrada, EN[address] [place] [address] PCP - General Family Practice 10/01/11 Development Writer Relationship Specialty Start Date End Date Geneva Estrada, EN[address] [place] [address] PCP - General Family Practice 10/01/11 Development Writer Relationship Specialty Start Date End Date Geneva Estrada, EN[address] [place] [address] PCP - General Family Practice 10/01/11 Development Writer Relationship Specialty Start Date End Date Geneva sEtrada, EN[address] [place] [address] PCP - General Family Practice 10/01/11 Development Writer Relationship Specialty Start Date End Date [facility], [address] [place] [address] PCP - General Family Practice 10/01/11 Development Writer Relationship Specialty Start Date End Date LucasshermanGeneva mauro, [address] [place] [address] PCP - General Family Medicine 10/01/11 Team Status: Inactive Member Role Status Dates NON STAFF Primary Care Provider Active ROBERT Monteiro Attending Provider Active Team Status: Active Member Role Status Dates NON STAFF Primary Care Provider Active Development Writer Relationship Specialty Start Date End Date Zack Simentalty [address] [place] [address] PCP - General Family Medicine 04/16/22 Development Writer Relationship Specialty Start Date End Date eWstjuliocesar Elizabet [address] [place] [address] PCP - General Family Medicine 04/16/22 Development Writer Relationship Specialty Start Date End Date Rumschlag, Elizabet [address] [place] [address] PCP - General Family Medicine 04/16/22 Development Writer Relationship Specialty Start Date End Date Rumschlag, Elizabet [address] [place] [address] PCP - General Family Medicine 04/16/22 Development Writer Relationship Specialty Start Date End Date Rumschlag, Elizabet [address] [place] [address] PCP - General Family Medicine 04/16/22 Development Writer Relationship Specialty Start Date End Date Rumschlaroro, Elizabet [address] [place] [address] PCP - General Family Medicine 04/16/22 Development Writer Relationship Specialty Start Date End Date Rumschlaroro, Elizabet [address] [place] [address] PCP - General Family Medicine 04/16/22 Development Writer Relationship Specialty Start Date End Date Rumjuliocesar Elizabet [address] [place] [address] PCP - General Family Medicine 04/16/22 Development Writer Relationship Specialty Start Date End Date Rumjuliocesar Elizabet [address] [place] [address] PCP - General Family Medicine 04/16/22 Development Writer Relationship Specialty Start Date End Date Rumschlaroro Elizabet [address] [place] [address] PCP - General Family Medicine 04/16/22 Development Writer Relationship Specialty Start Date End Date Rumschmendy Elizabet [address] [place] [address] PCP - General Family Medicine 04/16/22 Development Writer Relationship Specialty Start Date End Date Rumschlag, Elizabet [address] [place] [address] PCP - General Family Medicine 04/16/22 Development Writer Relationship Specialty Start Date End Date Rumschlag, Elizabet [address] [place] [address] PCP - General Family Medicine 04/16/22 Development Writer Relationship Specialty Start Date End Date Rumschlag, Elizabet, DO [address] [place] [address] PCP - General Family Medicine 04/16/22 Development Writer Relationship Specialty Start Date End Date Rumschlag, Elizabet, DO [address] [place] [address] PCP - General Family Medicine 04/16/22 Development Writer Relationship Specialty Start Date End Date Rumschlag, Elizabet, DO [address] [place] [address] PCP - General Family Medicine 04/16/22 Development Writer Relationship Specialty Start Date End Date Rumschlag, Elizabet, DO [address] [place] [address] PCP - General Family Medicine 04/16/22 Development Writer Relationship Specialty Start Date End Date Rumschlag, Elizabet, DO [address] [place] [address] PCP - General Family Medicine 04/16/22 Development Writer Relationship Specialty Start Date End Date Rumschlag Elizabet, DO [address] [place] [address] PCP - General Family Medicine 04/16/22 Development Writer Relationship Specialty Start Date End Date Rumschlag Elizabet, DO [address] [place] [address] PCP - General Family Medicine 04/16/22 Development Writer Relationship Specialty Start Date End Date Rumschlag, Elizabet, DO [address] [place] [address] PCP - General Family Medicine 04/16/22 Development Writer Relationship Specialty Start Date End Date Rumschlag, Elizabet, DO [address] [place] [address] PCP - General Family Medicine 04/16/22 Development Writer Relationship Specialty Start Date End Date Rumschlag Elizabet, DO [address] [place] [address] PCP - General Family Medicine 04/16/22 Source Comments (unrecognize d section and content) In the event this informatio n is protected by the Federal Confidentiality of Alcohol and Drug Abuse Patient Records regulations: The Federal rules restrict any use of the information to criminally investigate or prosecute any alcohol or drug abuse patient.[facility] the event this information is protected by the Federal Confidentiality of Alcohol and Drug Abuse Patient Records regulations: The Federal rules restrict any use of the information to criminally investigate or prosecute any alcohol or drug abuse patient.[facility] the event this information is protected by the Federal Confidentiality of Alcohol and Drug Abuse Patient Records regulations: The Federal rules restrict any use of the information to criminally investigate or prosecute any alcohol or drug abuse patient.[facility] the event this information is protected by the Federal Confidentiality of Alcohol and Drug Abuse Patient Records regulations: The Federal rules restrict any use of the information to criminally investigate or prosecute any alcohol or drug abuse patient.[facility] the event this information is protected by the Federal Confidentiality of Alcohol and Drug Abuse Patient Records regulations: The Federal rules restrict any use of the information to criminally investigate or prosecute any alcohol or drug abuse patient.[facility] the event this information is protected by the Federal Confidentiality of Alcohol and Drug Abuse Patient Records regulations: The Federal rules restrict any use of the information to criminally investigate or prosecute any alcohol or drug abuse patient.[facility] the event this information is protected by the Federal Confidentiality of Alcohol and Drug Abuse Patient Records regulations: The Federal rules restrict any use of the information to criminally investigate or prosecute any alcohol or drug abuse patient.[facility] the event this information is protected by the Federal Confidentiality of Alcohol and Drug Abuse Patient Records regulations: The Federal rules restrict any use of the information to criminally investigate or prosecute any alcohol or drug abuse patient.[facility] the event this information is protected by the Federal Confidentiality of Alcohol and Drug Abuse Patient Records regulations: The Federal rules restrict any use of the information to criminally investigate or prosecute any alcohol or drug abuse patient.[facility] Hospital[facility] the event this information is protected by the Federal Confidentiality of Alcohol and Drug Abuse Patient Records regulations: The Federal rules restrict any use of the information to criminally investigate or prosecute any alcohol or drug abuse patient.[facility] Hospital[facility] the event this information is protected by the Federal Confidentiality of Alcohol and Drug Abuse Patient Records regulations: The Federal rules restrict any use of the information to criminally investigate or prosecute any alcohol or drug abuse patient.[facility] Hospital[facility] the event this information is protected by the Federal Confidentiality of Alcohol and Drug Abuse Patient Records regulations: The Federal rules restrict any use of the information to criminally investigate or prosecute any alcohol or drug abuse patient.[facility] Hospital[facility] the event this information is protected by the Federal Confidentiality of Alcohol and Drug Abuse Patient Records regulations: The Federal rules restrict any use of the information to criminally investigate or prosecute any alcohol or drug abuse patient.[facility] Hospital[facility] the event this information is protected by the Federal Confidentiality of Alcohol and Drug Abuse Patient Records regulations: The Federal rules restrict any use of the information to criminally investigate or prosecute any alcohol or drug abuse patient.[facility] Hospital[facility] the event this information is protected by the Federal Confidentiality of Alcohol and Drug Abuse Patient Records regulations: The Federal rules restrict any use of the information to criminally investigate or prosecute any alcohol or drug abuse patient.[facility] Hospital[facility] the event this information is protected by the Federal Confidentiality of Alcohol and Drug Abuse Patient Records regulations: The Federal rules restrict any use of the information to criminally investigate or prosecute any alcohol or drug abuse patient.[facility] Hospital[facility] the event this information is protected by the Federal Confidentiality of Alcohol and Drug Abuse Patient Records regulations: The Federal rules restrict any use of the information to criminally investigate or prosecute any alcohol or drug abuse patient.[facility] Hospital[facility] the event this information is protected by the Federal Confidentiality of Alcohol and Drug Abuse Patient Records regulations: The Federal rules restrict any use of the information to criminally investigate or prosecute any alcohol or drug abuse patient.[facility] HospitalIn the event this information is protected by the Federal Confidentiality of Alcohol and Drug Abuse Patient Records regulations: The Federal rules restrict any use of the information to criminally investigate or prosecute any alcohol or drug abuse patient.[facility] HospitalIn the event this information is protected by the Federal Confidentiality of Alcohol and Drug Abuse Patient Records regulations: The Federal rules restrict any use of the information to criminally investigate or prosecute any alcohol or drug abuse patient.[facility] HospitalIn the event this information is protected by the Federal Confidentiality of Alcohol and Drug Abuse Patient Records regulations: The Federal rules restrict any use of the information to criminally investigate or prosecute any alcohol or drug abuse patient.[facility] HospitalIn the event this information is protected by the Federal Confidentiality of Alcohol and Drug Abuse Patient Records regulations: The Federal rules restrict any use of the information to criminally investigate or prosecute any alcohol or drug abuse patient.[facility] HospitalIn the event this information is protected by the Federal Confidentiality of Alcohol and Drug Abuse Patient Records regulations: The Federal rules restrict any use of the information to criminally investigate or prosecute any alcohol or drug abuse patient.[facility] HospitalIn the event this information is protected by the Federal Confidentiality of Alcohol and Drug Abuse Patient Records regulations: The Federal rules restrict any use of the information to criminally investigate or prosecute any alcohol or drug abuse patient.[facility] HospitalIn the event this information is protected by the Federal Confidentiality of Alcohol and Drug Abuse Patient Records regulations: The Federal rules restrict any use of the information to criminally investigate or prosecute any alcohol or drug abuse patient.[facility] HospitalIn the event this information is protected by the Federal Confidentiality of Alcohol and Drug Abuse Patient Records regulations: The Federal rules restrict any use of the information to criminally investigate or prosecute any alcohol or drug abuse patient.[facility] HospitalIn the event this information is protected by the Federal Confidentiality of Alcohol and Drug Abuse Patient Records regulations: The Federal rules restrict any use of the information to criminally investigate or prosecute any alcohol or drug abuse patient.[facility] HospitalIn the event this information is protected by the Federal Confidentiality of Alcohol and Drug Abuse Patient Records regulations: The Federal rules restrict any use of the information to criminally investigate or prosecute any alcohol or drug abuse patient.[facility] HospitalIn the event this information is protected by the Federal Confidentiality of Alcohol and Drug Abuse Patient Records regulations: The Federal rules restrict any use of the information to criminally investigate or prosecute any alcohol or drug abuse patient.[facility] HospitalIn the event this information is protected by the Federal Confidentiality of Alcohol and Drug Abuse Patient Records regulations: The Federal rules restrict any use of the information to criminally investigate or prosecute any alcohol or drug abuse patient.[facility] HospitalIn the event this information is protected by the Federal Confidentiality of Alcohol and Drug Abuse Patient Records regulations: The Federal rules restrict any use of the information to criminally investigate or prosecute any alcohol or drug abuse patient.[facility] HospitalIn the event this information is protected by the Federal Confidentiality of Alcohol and Drug Abuse Patient Records regulations: The Federal rules restrict any use of the information to criminally investigate or prosecute any alcohol or drug abuse patient.[facility] HospitalIn the event this information is protected by the Federal Confidentiality of Alcohol and Drug Abuse Patient Records regulations: The Federal rules restrict any use of the information to criminally investigate or prosecute any alcohol or drug abuse patient.[facility] HospitalIn the event this information is protected by the Federal Confidentiality of Alcohol and Drug Abuse Patient Records regulations: The Federal rules restrict any use of the information to criminally investigate or prosecute any alcohol or drug abuse patient.[facility] HospitalIn the event this information is protected by the Federal Confidentiality of Alcohol and Drug Abuse Patient Records regulations: The Federal rules restrict any use of the information to criminally investigate or prosecute any alcohol or drug abuse patient.[facility] HospitalIn the event this information is protected by the Federal Confidentiality of Alcohol and Drug Abuse Patient Records regulations: The Federal rules restrict any use of the information to criminally investigate or prosecute any alcohol or drug abuse patient.[facility] HospitalIn the event this information is protected by the Federal Confidentiality of Alcohol and Drug Abuse Patient Records regulations: The Federal rules restrict any use of the information to criminally investigate or prosecute any alcohol or drug abuse patient.[facility] HospitalIn the event this information is protected by the Federal Confidentiality of Alcohol and Drug Abuse Patient Records regulations: The Federal rules restrict any use of the information to criminally investigate or prosecute any alcohol or drug abuse patient.[facility] HospitalIn the event this information is protected by the Federal Confidentiality of Alcohol and Drug Abuse Patient Records regulations: The Federal rules restrict any use of the information to criminally investigate or prosecute any alcohol or drug abuse patient.[facility] HospitalIn the event this information is protected by the Federal Confidentiality of Alcohol and Drug Abuse Patient Records regulations: The Federal rules restrict any use of the information to criminally investigate or prosecute any alcohol or drug abuse patient.[facility] Goals (unrecognized section and content) Goals [...] BE BASED ON THE PRIMARY CLINICAL RECORDS. [facility]. provides no warranty or guarantee of the accuracy or completeness of information in this document.
--- NOTE | 2024-03-06 18:53 | ED.ABDPAIN1 ---
HPI - Abdominal Pain General Chief Complaint: Abdominal Pain Stated Complaint: Lower Abdominal Pain Time Seen by Provider: 03/06/24 18:41 Source: patient Mode of arrival: walk-in History of Present Illness HPI narrative: The patient presented to us with a right lower quadrant pain for the last 3 days, he mentioned that she also have a history of cholecystectomy and gastric bypass, she has been having this pain for the last 3 days in the right lower quadrant, normal bowel movement, and the patient have no fever or chills but she have nausea and vomiting, the patient did not have her menstruation recently as she had an IUD She denies any other complaints Related Data Home Medications ?Medication ?Instructions ?Recorded ?Confirmed aripiprazole 10 mg tablet 15 mg PO DAILY 12/13/22 10/02/23 buspirone 15 mg tablet 15 mg PO BID 12/13/22 10/02/23 cetirizine 10 mg tablet 10 mg PO DAILY 12/13/22 10/02/23 duloxetine 60 mg capsule,delayed 60 mg PO DAILY 12/13/22 10/02/23 release famotidine 20 mg tablet 20 mg PO Q12H PRN GI 12/13/22 10/02/23 hydroxyzine pamoate 50 mg capsule 50 mg PO DAILY PRN sleep 12/13/22 10/02/23 lamotrigine 100 mg tablet 100 mg PO DAILY 12/13/22 10/02/23 montelukast 10 mg tablet 10 mg PO DAILY 12/13/22 10/02/23 omeprazole 40 mg capsule,delayed 40 mg PO DAILY 12/13/22 10/02/23 release pantoprazole 40 mg tablet,delayed 40 mg PO DAILY GI 12/13/22 10/02/23 release propranolol 60 mg tablet 60 mg PO Q12H 12/13/22 10/02/23 hydrochlorothiazide 12.5 mg tablet 12.5 mg PO QDAY 10/02/23 10/02/23 rizatriptan 10 mg disintegrating 10 mg PO Q2H PRN migraine headache 10/02/23 10/02/23 tablet Allergies Allergy/AdvReac Type Severity Reaction Status Date / Time adhesive tape Allergy Rash Verified 12/13/22 22:40 cephalexin [From Keflex] Allergy Rash Verified 12/13/22 22:40 Penicillins Allergy Rash Verified 12/13/22 22:40 amoxicillin [From Augmentin] AdvReac Gastrointestinal Verified 12/13/22 22:38 Upset clavulanic acid AdvReac Gastrointestinal Verified 12/13/22 22:38 [From Augmentin] Upset tramadol [From Ultram] AdvReac Gastrointestinal Verified 12/13/22 22:40 Upset Review of Systems ROS Status of ROS 10 or more systems reviewed and unremarkable except as noted in history and below [facility] Medical History (Updated 10/16/23 @ 06:53 by Sherrill Mcmahon) Ulnar neuropathy ?G56.20 - Lesion of ulnar nerve, unspecified upper limb (ICD-10) Anemia ?D64.9 - Anemia, unspecified (ICD-10) Insomnia ?G47.00 - Insomnia, unspecified (ICD-10) PTSD (post-traumatic stress disorder) ?F43.10 - Post-traumatic stress disorder, unspecified (ICD-10) Panic attacks ?F41.0 - Panic disorder [episodic paroxysmal anxiety] (ICD-10) Anxiety ?F41.9 - Anxiety disorder, unspecified (ICD-10) Depression ?F32.A - Depression, unspecified (ICD-10) COVID-19 ?U07.1 - COVID-19 (ICD-10) Migraine ?G43.909 - Migraine, unspecified, not intractable, without status migrainosus (ICD-10) Kidney stones ?N20.0 - Calculus of kidney (ICD-10) Heartburn ?R12 - Heartburn (ICD-10) Hypertension ?I10 - Essential (primary) hypertension (ICD-10) Sleep apnea ?G47.30 - Sleep apnea, unspecified (ICD-10) Pituitary tumor ?D49.7 - Neoplasm of unspecified behavior of endocrine glands and other parts of nervous system (ICD-10) GERD (gastroesophageal reflux disease) ?K21.9 - Gastro-esophageal reflux disease without esophagitis (ICD-10) Eczema ?L30.9 - Dermatitis, unspecified (ICD-10) Chronic back pain ?M54.9 - Dorsalgia, unspecified (ICD-10) ?G89.29 - Other chronic pain (ICD-10) Bipolar depression ?F31.9 - Bipolar disorder, unspecified (ICD-10) Retained intrauterine contraceptive device (IUD) ?T83.39XA - Other mechanical complication of intrauterine contraceptive device, initial encounter (ICD-10) Surgical History (Updated 10/02/23 @ 09:19 by Mariia Moscoso NP) History of esophagogastroduodenoscopy (EGD) ?Z98.890 - Other specified postprocedural states (ICD-10) 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 - Bariatric surgery status (ICD-10) History of tonsillectomy ?Z90.89 - Acquired absence of other organs (ICD-10) History of cholecystectomy ?Z90.49 - Acquired absence of other specified parts of digestive tract (ICD-10) History of carpal tunnel release ?Z98.890 - Other specified postprocedural states (ICD-10) History of spinal surgery ?Z98.890 - Other specified postprocedural states (ICD-10) History of spinal surgery ?Z98.890 - Other specified postprocedural states (ICD-10) H/O splenectomy ?Z90.81 - Acquired absence of spleen (ICD-10) H/O laparoscopy ?Z98.890 - Other specified postprocedural states (ICD-10) H/O gastric sleeve ?Z90.3 - Acquired absence of stomach [part of] (ICD-10) Family History (Updated 10/02/23 @ 09:19 by Mariia Moscoso NP) Other Family history of diabetes mellitus Family history of hypertension Family history of myocardial infarction Lymphoma Social History (Updated 10/02/23 @ 09:14 by Mariia Moscoso NP) Within the past year, how often did you have a drink containing alcohol: never Score interpretation: A score less than 3 is consistent with normal alcohol consumption. Smoking status: Former smoker Non-prescribed substance use: denies use Highest level of school completed/degree received: Associate degree: occupational, technical, vocational program Little interest or pleasure in doing things: not at all Feeling down, depressed, or hopeless: not at all Exam Narrative Exam Narrative: Nurses notes and vital signs reviewed and patient is not hypoxic. General: Well-appearing and in no apparent distress. Skin: Warm, dry, no pallor noted. No rash. Head: Normocephalic, atraumatic. Neck: Supple, non-tender. Eye: Pupils are equal, round and EOMI. No scleral icterus. Ears, Nose, Mouth, and Throat: TM are clear, no nasal mucosal hypertrophy. Oral mucosa is moist, no posterior oropharynx erythema, uvula is mid-line Cardiovascular: Regular Rate and Rhythm without murmur, gallop or rub. Respiratory: No accessory muscle use or respiratory distress. Lungs are clear to auscultation, no wheezing, rales or rhonchi Chest Wall: no tenderness Back: No midline thoracic or lumbar vertebral tenderness. No CVA tenderness Musculoskeletal: normal ROM, no calf or popliteal tenderness, no lower extremity edema/swelling GI: Abdomen is soft, right lower quadrant tenderness noted Neurological: A&O x4. No cranial nerve dysfunction observed. No truncal ataxia. Moves all extremities. Sensation intact. Psychiatric: Cooperative and interactive. Normal mood and affect. Constitutional Vital Signs, click to edit/add: Last Vital Signs Temp 98.0 F 03/06/24 18:28 Pulse 84 03/06/24 18:28 Resp 20 03/06/24 18:28 BP 165/74 H 03/06/24 18:28 Pulse Ox 97 03/06/24 18:28 O2 Del Method Room Air 03/06/24 18:28 Course Vital Signs Vital signs: Vital Signs Temperature 98.0 F 03/06/24 18:28 Pulse Rate 84 03/06/24 18:28 Respiratory Rate 20 03/06/24 18:28 Blood Pressure 165/74 H 03/06/24 18:28 Pulse Oximetry 97 03/06/24 18:28 Oxygen Delivery Method Room Air 03/06/24 18:28 Temperature 98.0 F 03/06/24 18:28 Pulse Rate 84 03/06/24 18:28 Respiratory Rate 20 03/06/24 18:28 Blood Pressure 165/74 H 03/06/24 18:28 Pulse Oximetry 97 03/06/24 18:28 Oxygen Delivery Method Room Air 03/06/24 18:28 MDM - Abdominal Pain MDM Narrative Medical decision making narrative: The patient presented to us with a right lower quadrant pain Blood workup ordered including a CBC chemistry and test and the patient care will be transferred to Dr. Winn Discharge Plan Discharge Patient Disposition: Still a Patient
[2024-03-06 19:11] LABS: Basophils Absolute Auto 0.1 10^3/uL (0.0-0.1); Basophils Percent Auto 0.8 % (0.2-2.0); Eosinophils Absolute Auto 0.5 10^3/uL (0.0-0.7); Eosinophils Percent Auto 3.1 % (0.9-7.0); Hematocrit 44.2 % (36.0-48.0); Hemoglobin 14.3 g/dL (12.0-16.0); Immature Granulocytes Abs Auto 0.09 10^3/uL (0.00-0.03); Immature Granulocytes Pct Auto 0.6 % (0.0-0.5); Lymphocytes Absolute Auto 4.7 10^3/uL (1.2-3.8); Lymphocytes Percent Auto 29.4 % (20.5-60.0); Mean Corpuscular HGB Conc 32.4 g/dL (29.9-35.2); Mean Corpuscular Hemoglobin 28.5 pg (26.7-34.0); Mean Corpuscular Volume 88.2 fL (81.0-99.0); Mean Platelet Volume 9.1 fL (9.5-13.5); Monocytes Absolute Auto 1.4 10^3/uL (0.3-0.8); Monocytes Percent Auto 8.6 % (1.7-12.0); Neutrophils Absolute Auto 9.2 10^3/uL (1.4-6.5); Neutrophils Percent Auto 57.5 % (43.0-75.0); Platelet Count 606 10^3/uL (150-450); Red Blood Count 5.01 10^6/uL (4.20-5.40); Red Cell Distribution Width 15.5 % (11.0-15.0)
--- NOTE | 2024-03-06 19:12 | PC.NURSE ---
pt resting on ED cart alert with no distress at this time. pt aware of pending results at this time and denies current needs.
[2024-03-06 19:14] LABS: Bilirubin Urine NEGATIVE (NEGATIVE); Blood Urine TRACE-I (NEGATIVE); Clarity Urine CLEAR (CLEAR); Color Urine LT. YELLOW (YELLOW); Glucose Urine UA NEGATIVE (NEGATIVE); Ketones Urine NEGATIVE (NEGATIVE); Leukocyte Esterase Urine SMALL (NEGATIVE); Nitrite Urine NEGATIVE (NEGATIVE); Protein Urine NEGATIVE (NEG/TRACE); Specific Gravity Urine 1.015 (1.005-1.025); Urobilinogen Urine 0.2 EU/dL (0.2-1.0)
[2024-03-06 19:18] LABS: Urine Microscopic Indicated YES
[2024-03-06 19:21] LABS: Bacteria Urine SMALL #/HPF (NONE SEEN); Cast Seen? NONE SEEN #/LPF (NONE SEEN); Crystals Seen? None Seen #/HPF (None Seen); Mucus Urine NONE SEEN (NONE SEEN); RBC Urine 0-2 #/HPF (0-2); Squamous Epithelial Cell Urine MODERATE #/LPF (NONE/RARE); Urine Culture Indicated YES
[2024-03-06 19:24] LABS: HCG Qualitative NEGATIVE (NEGATIVE); Internal Control Within Normal Limits
[2024-03-06 19:29] LABS: Alanine Aminotransferase 25 U/L (14-59); Albumin Globulin Ratio 0.7; Albumin Level 3.2 g/dL (3.4-5.0); Alkaline Phosphatase 120 U/L (46-116); Anion Gap 7.8; Aspartate Amino Transferase 32 U/L (15-37); BUN Creatinine Ratio 9.1; Bilirubin Total 0.3 mg/dL (0.2-1.0); Calcium 9.1 mg/dL (8.5-10.1); Carbon Dioxide 31.3 mmol/L (21.0-32.0); Chloride 98 mmol/L (98-107); Estimated GFR (African America >60 (>=60); Estimated GFR (Non-African Ame >60 (>=60); Globulin 4.7 g/dL; Glucose 89 mg/dL (74-106); Potassium 4.1 mmol/L (3.5-5.1); Sodium 133 mmol/L (136-145); Total Protein 7.9 g/dL (6.4-8.2)
--- NOTE | 2024-03-06 19:46 | CT_ITS ---
[address] [address] Patient Name: ANGELES ORTIZ MRN: [id number] date: 1985 Sex: F Assigned Patient Location: ER Current Patient Location: Accession/Order Number: [id number] Exam Date: 03/06/2024 21:18 Report Date: 03/06/2024 22:08 At the request of: RICHARD MARKER Procedure: CT abdomen pelvis w con EXAM: CT abdomen pelvis w con TECHNIQUE: Axial CT images were obtained of the abdomen and pelvis with intravenous contrast. Sagittal and coronal reformatted images were also obtained. Dose reduction techniques were achieved by using automated exposure control and/or adjustment of mA and/or kV according to patient size and/or use of iterative reconstruction technique. HISTORY: RLQ abd pain COMPARISON: Ultrasound 09/06/2023 FINDINGS: Lower chest: The lower lungs are clear. Liver: The liver is homogeneous with normal contours and normal size. Gallbladder: Status post cholecystectomy. No significant biliary dilatation. Pancreas: The pancreas is homogeneous without evidence for mass lesion or inflammation. Spleen: The spleen is unremarkable without evidence for mass lesion. Adrenal glands: The adrenal glands are unremarkable Kidneys and bladder: 2 mm stone of the lower pole right kidney. Unremarkable left kidney. The ureters demonstrate normal caliber. The urinary bladder is unremarkable. GI Tract: Postsurgical changes of the stomach. Post surgical changes of the proximal small bowel. No small bowel obstruction. The appendix is unremarkable.The visualized portion of the large bowel is unremarkable. Reproductive: Intrauterine device in place. 5.6 cm cystic appearing lesion of the right ovary. Lymph nodes: No retroperitoneal or abdominal lymphadenopathy. Vascular: The aorta is not dilated. Mesenteric, renal and iliac arteries are patent. Peritoneum: No free intraperitoneal air or fluid. No acute inflammation. Abdominal wall: Severe degenerative disc disease L5-S1. CT/CT abdomen pelvis w con IMPRESSION: Cystic enlargement of the right ovary. Consider further evaluation with pelvic ultrasound. No additional acute abdominal findings. Electronically authenticated by: LEONID RUBIO Date: 03/06/2024 22:08
--- NOTE | 2024-03-06 19:50 | ED_ITS ---
HPI - Abdominal Pain General Chief Complaint: Abdominal Pain Stated Complaint: Lower Abdominal Pain Time Seen by Provider: 03/06/24 18:41 Source: patient Mode of arrival: walk-in History of Present Illness HPI narrative: This 38-year-old female who has had a duodenal surgery for weight loss in July at [facility] was signed out to me at shift change pending evaluation of her urine and labs. She presents for evaluation of right lower quadrant abdominal pain which started on Thursday associated with nausea and decreased appetite. She has not had any vomiting or fever. She has noted to have an elevated white count at 16. Electrolytes are normal. She has a mild elevation in her alkaline phosphatase. Urine shows 5-10 white blood cells per high-power field. An IV will be placed and she will be medicated with IV fluids, Zofran, Toradol and a CT scan with oral and IV contrast will be ordered to rule out appendicitis or other abnormality related to her weight loss surgery. CT scan of the abdomen pelvis is included in the body of this report and shows a normal appendix but a 5.6 cm right ovarian cyst. This was discussed with the patient and she was given a copy of her report. I offered to get an ultrasound of her ovaries before she left the emergency department this evening but she prefers to follow-up as an outpatient or with Dr. Harley as her daughter is here with her and she needs to get her home to go to school tomorrow. She was encouraged to return to the emergency department for worsening or severe abdominal pain, worsening or severe nausea or vomiting or any concerns. At this time she is resting comfortably on the bed and does not appear to be in any distress and I suspect she is not having an ovarian torsion at this time. Related Data Home Medications ?Medication ?Instructions ?Recorded ?Confirmed aripiprazole 10 mg tablet 15 mg PO DAILY 12/13/22 10/02/23 buspirone 15 mg tablet 15 mg PO BID 12/13/22 10/02/23 cetirizine 10 mg tablet 10 mg PO DAILY 12/13/22 10/02/23 duloxetine 60 mg capsule,delayed 60 mg PO DAILY 12/13/22 10/02/23 release famotidine 20 mg tablet 20 mg PO Q12H PRN GI 12/13/22 10/02/23 hydroxyzine pamoate 50 mg capsule 50 mg PO DAILY PRN sleep 12/13/22 10/02/23 lamotrigine 100 mg tablet 100 mg PO DAILY 12/13/22 10/02/23 montelukast 10 mg tablet 10 mg PO DAILY 12/13/22 10/02/23 omeprazole 40 mg capsule,delayed 40 mg PO DAILY 12/13/22 10/02/23 release pantoprazole 40 mg tablet,delayed 40 mg PO DAILY GI 12/13/22 10/02/23 release propranolol 60 mg tablet 60 mg PO Q12H 12/13/22 10/02/23 hydrochlorothiazide 12.5 mg tablet 12.5 mg PO QDAY 10/02/23 10/02/23 rizatriptan 10 mg disintegrating 10 mg PO Q2H PRN migraine headache 10/02/23 10/02/23 tablet Allergies Allergy/AdvReac Type Severity Reaction Status Date / Time adhesive tape Allergy Rash Verified 12/13/22 22:40 cephalexin [From Keflex] Allergy Rash Verified 12/13/22 22:40 Penicillins Allergy Rash Verified 12/13/22 22:40 amoxicillin [From Augmentin] AdvReac Gastrointestinal Verified 12/13/22 22:38 Upset clavulanic acid AdvReac Gastrointestinal Verified 12/13/22 22:38 [From Augmentin] Upset tramadol [From Ultram] AdvReac Gastrointestinal Verified 12/13/22 22:40 Upset PFSH PFSH Medical History (Updated 03/06/24 @ 22:29 by Anisha Winn MD) Ulnar neuropathy ?G56.20 - Lesion of ulnar nerve, unspecified upper limb (ICD-10) Anemia ?D64.9 - Anemia, unspecified (ICD-10) Insomnia ?G47.00 - Insomnia, unspecified (ICD-10) PTSD (post-traumatic stress disorder) ?F43.10 - Post-traumatic stress disorder, unspecified (ICD-10) Panic attacks ?F41.0 - Panic disorder [episodic paroxysmal anxiety] (ICD-10) Anxiety ?F41.9 - Anxiety disorder, unspecified (ICD-10) Depression ?F32.A - Depression, unspecified (ICD-10) COVID-19 ?U07.1 - COVID-19 (ICD-10) Migraine ?G43.909 - Migraine, unspecified, not intractable, without status migrainosus (ICD-10) Kidney stones ?N20.0 - Calculus of kidney (ICD-10) Heartburn ?R12 - Heartburn (ICD-10) Hypertension ?I10 - Essential (primary) hypertension (ICD-10) Sleep apnea ?G47.30 - Sleep apnea, unspecified (ICD-10) Pituitary tumor ?D49.7 - Neoplasm of unspecified behavior of endocrine glands and other parts of nervous system (ICD-10) GERD (gastroesophageal reflux disease) ?K21.9 - Gastro-esophageal reflux disease without esophagitis (ICD-10) Eczema ?L30.9 - Dermatitis, unspecified (ICD-10) Chronic back pain ?M54.9 - Dorsalgia, unspecified (ICD-10) ?G89.29 - Other chronic pain (ICD-10) Bipolar depression ?F31.9 - Bipolar disorder, unspecified (ICD-10) Retained intrauterine contraceptive device (IUD) ?T83.39XA - Other mechanical complication of intrauterine contraceptive device, initial encounter (ICD-10) Surgical History (Updated 10/02/23 @ 09:19 by Mariia Moscoso NP) History of esophagogastroduodenoscopy (EGD) ?Z98.890 - Other specified postprocedural states (ICD-10) 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 - Bariatric surgery status (ICD-10) History of tonsillectomy ?Z90.89 - Acquired absence of other organs (ICD-10) History of cholecystectomy ?Z90.49 - Acquired absence of other specified parts of digestive tract (ICD- 10) History of carpal tunnel release ?Z98.890 - Other specified postprocedural states (ICD-10) History of spinal surgery ?Z98.890 - Other specified postprocedural states (ICD-10) History of spinal surgery ?Z98.890 - Other specified postprocedural states (ICD-10) H/O splenectomy ?Z90.81 - Acquired absence of spleen (ICD-10) H/O laparoscopy ?Z98.890 - Other specified postprocedural states (ICD-10) H/O gastric sleeve ?Z90.3 - Acquired absence of stomach [part of] (ICD-10) Family History (Updated 10/02/23 @ 09:19 by Mariia Moscoso NP) Other Family history of diabetes mellitus Family history of hypertension Family history of myocardial infarction Lymphoma Social History (Updated 10/02/23 @ 09:14 by Mariia Moscoso NP) Within the past year, how often did you have a drink containing alcohol: never Score interpretation: A score less than 3 is consistent with normal alcohol consumption. Smoking status: Former smoker Non-prescribed substance use: denies use Highest level of school completed/degree received: Associate degree: occupational, technical, vocational program Little interest or pleasure in doing things: not at all Feeling down, depressed, or hopeless: not at all Exam Constitutional Vital Signs, click to edit/add: Last Vital Signs Temp 98.0 F 03/06/24 18:28 Pulse 79 03/06/24 22:45 Resp 20 03/06/24 22:45 BP 165/74 H 03/06/24 18:28 Pulse Ox 97 03/06/24 22:45 O2 Del Method Room Air 03/06/24 22:45 Course Vital Signs Vital signs: Vital Signs Temperature 98.0 F 03/06/24 18:28 Pulse Rate 84 03/06/24 18:28 Respiratory Rate 20 03/06/24 18:28 Blood Pressure 165/74 H 03/06/24 18:28 Pulse Oximetry 97 03/06/24 18:28 Oxygen Delivery Method Room Air 03/06/24 18:28 Temperature 98.0 F 03/06/24 18:28 Pulse Rate 79 03/06/24 22:45 Respiratory Rate 20 03/06/24 22:45 Blood Pressure 165/74 H 03/06/24 18:28 Pulse Oximetry 97 03/06/24 22:45 Oxygen Delivery Method Room Air 03/06/24 22:45 MDM - Abdominal Pain Medical Records Medical records narrative: [place] [address] CT Scan Report Signed Patient: ANGELES ORTIZ MR#: [id number] : 1985 Acct:[id number] Age/Sex: 38 / F ADM Date: 03/06/24 Loc: ER Attending Dr: Ordering Physician: Anisha Winn Date of Service: 03/06/24 Procedure(s): CT abdomen pelvis w con Accession Number(s): [id number] cc: Lisa Roberts NP~ The [address] [address] Patient Name: ANGELES ORTIZ MRN: [id number] date: 1985 Sex: F Assigned Patient Location: ER Current Patient Location: ER Accession/Order Number: [id number] Exam Date: 03/06/2024 21:18 Report Date: 03/06/2024 22:08 At the request of: ANISHA MARKER Procedure: CT abdomen pelvis w con EXAM: CT abdomen pelvis w con TECHNIQUE: Axial CT images were obtained of the abdomen and pelvis with intravenous contrast. Sagittal and coronal reformatted images were also obtained. Dose reduction techniques were achieved by using automated exposure control and/or adjustment of mA and/or kV according to patient size and/or use of iterative reconstruction technique. HISTORY: RLQ abd pain COMPARISON: Ultrasound 09/06/2023 FINDINGS: Lower chest: The lower lungs are clear. Liver: The liver is homogeneous with normal contours and normal size. Gallbladder: Status post cholecystectomy. No significant biliary dilatation. Pancreas: The pancreas is homogeneous without evidence for mass lesion or inflammation. Spleen: The spleen is unremarkable without evidence for mass lesion. Adrenal glands: The adrenal glands are unremarkable Kidneys and bladder: 2 mm stone of the lower pole right kidney. Unremarkable left kidney. The ureters demonstrate normal caliber. The urinary bladder is unremarkable. GI Tract: Postsurgical changes of the stomach. Post surgical changes of the proximal small bowel. No small bowel obstruction. The appendix is unremarkable.The visualized portion of the large bowel is unremarkable. Reproductive: Intrauterine device in place. 5.6 cm cystic appearing lesion of the right ovary. Lymph nodes: No retroperitoneal or abdominal lymphadenopathy. Vascular: The aorta is not dilated. Mesenteric, renal and iliac arteries are patent. Peritoneum: No free intraperitoneal air or fluid. No acute inflammation. Abdominal wall: Severe degenerative disc disease L5-S1. CT/CT abdomen pelvis w con IMPRESSION: Cystic enlargement of the right ovary. Consider further evaluation with pelvic ultrasound. No additional acute abdominal findings. Electronically authenticated by: LEONID RUBIO Date: 03/06/2024 22:08 Lab Data Attestation: I reviewed the patient's lab results. Labs: Lab Results 03/06/24 03/06/24 Range/Units 19:00 19:03 WBC 16.0 H (4.0-11.0) 10^3/uL RBC 5.01 (4.20-5.40) 10^6/uL Hgb 14.3 (12.0-16.0) g/dL Hct 44.2 (36.0-48.0) % MCV 88.2 (81.0-99.0) fL MCH 28.5 (26.7-34.0) pg MCHC 32.4 (29.9-35.2) g/dL RDW 15.5 H (11.0-15.0) % Plt Count 606 H (150-450) 10^3/uL MPV 9.1 L (9.5-13.5) fL Neut % (Auto) 57.5 (43.0-75.0) % Lymph % (Auto) 29.4 (20.5-60.0) % [place] % (Auto) 8.6 (1.7-12.0) % Eos % (Auto) 3.1 (0.9-7.0) % Baso % (Auto) 0.8 (0.2-2.0) % Neut # (Auto) 9.2 H (1.4-6.5) 10^3/uL Lymph # (Auto) 4.7 H (1.2-3.8) 10^3/uL [place] # (Auto) 1.4 H (0.3-0.8) 10^3/uL Eos # (Auto) 0.5 (0.0-0.7) 10^3/uL Baso # (Auto) 0.1 (0.0-0.1) 10^3/uL Abs Immat Gran (auto) 0.09 H (0.00-0.03) 10^3/uL Imm/Tot Granulo (auto) 0.6 H (0.0-0.5) % Sodium 133 L (136-145) mmol/L Potassium 4.1 (3.5-5.1) mmol/L Chloride 98 (98-107) mmol/L Carbon Dioxide 31.3 (21.0-32.0) mmol/L Anion Gap 7.8 BUN 9.0 (7.0-18.0) mg/dL Creatinine 0.99 (0.55-1.02) mg/dL Est GFR ( Amer) >60 (>=60) Est GFR (Non-Af Amer) >60 (>=60) BUN/Creatinine Ratio 9.1 Glucose 89 (74-106) mg/dL Calcium 9.1 (8.5-10.1) mg/dL Total Bilirubin 0.3 (0.2-1.0) mg/dL AST 32 (15-37) U/L ALT 25 (14-59) U/L Alkaline Phosphatase 120 H (46-116) U/L Total Protein 7.9 (6.4-8.2) g/dL Albumin 3.2 L (3.4-5.0) g/dL Globulin 4.7 g/dL Albumin/Globulin Ratio 0.7 Serum HCG, Qual Negative (NEGATIVE) Urine Color Lt. yellow (YELLOW) Urine Clarity Clear (CLEAR) Urine pH 6.0 (5.0-9.0) Ur Specific [place] 1.015 (1.005-1.025) Urine Protein Negative (NEG/TRACE) mg/dL Urine Glucose (UA) Negative (NEGATIVE) mg/dL Urine Ketones Negative (NEGATIVE) mg/dL Urine Occult Blood Trace-i (NEGATIVE) Urine Nitrite Negative (NEGATIVE) Urine Bilirubin Negative (NEGATIVE) Urine Urobilinogen 0.2 (0.2-1.0) EU/dL Ur Leukocyte Esterase Small A (NEGATIVE) Urine RBC 0-2 (0-2) #/HPF Urine WBC 5-10 A (NONE SEEN) #/HPF Ur Squamous Epith Cells Moderate A (NONE/RARE) #/LPF Urine Crystals None seen (None Seen) #/HPF Urine Bacteria Small A (NONE SEEN) #/HPF Urine Casts None seen (NONE SEEN) #/LPF Urine Mucus None seen (NONE SEEN) Ur Culture Indicated? Yes Discharge Plan Discharge Chief Complaint: Abdominal Pain Clinical Impression: Ovarian cyst Patient Disposition: Home, Self-Care Time of Disposition Decision: 22:27 Condition: Good Prescriptions / Home Meds: No Action rizatriptan 10 mg tablet,disintegrating 10 mg PO Q2H PRN (Reason: migraine headache) hydrochlorothiazide 12.5 mg tablet 12.5 mg PO QDAY aripiprazole 10 mg tablet 15 mg PO DAILY Patient Comments: HS buspirone 15 mg tablet 15 mg PO BID cetirizine 10 mg tablet 10 mg PO DAILY duloxetine 60 mg capsule,delayed release(DR/EC) 60 mg PO DAILY famotidine 20 mg tablet 20 mg PO Q12H PRN (Reason: GI) hydroxyzine pamoate 50 mg capsule 50 mg PO DAILY PRN (Reason: sleep) lamotrigine 100 mg tablet 100 mg PO DAILY montelukast 10 mg tablet 10 mg PO DAILY omeprazole 40 mg capsule,delayed release(DR/EC) 40 mg PO DAILY pantoprazole 40 mg tablet,delayed release (DR/EC) 40 mg PO DAILY propranolol 60 mg tablet 60 mg PO Q12H Print Language: Luxembourgish Instructions: Ovarian Cyst (ED) Additional Instructions: Call tomorrow for an outpatient ultrasound. Use pain medications and nausea medications as needed. Please return to the emergency department for worsening or severe abdominal pain or uncontrollable nausea and vomiting. Follow-up with Dr. Harley for further evaluation and treatment of your ovarian cyst. Referrals: Jamie Harley DO [Physician] - As soon as possible Lisa Roberts NP [Primary Care Provider] - 1 week Discharge Date/Time: 03/06/24 22:47
[2024-03-06] MEDS: 0.9 % SODIUM CHLORIDE 1,000 ML 1000 ML IV (20:13)
[2024-03-06] MEDS: KETOROLAC TROMETHAMINE 30 MG/ML VIAL IVP (20:15)
[2024-03-06] MEDS: ONDANSETRON PF 4 MG/2 ML VIAL IV (20:15)
[2024-03-06] MEDS: ONDANSETRON 4 MG RAPDIS TABLET SL (22:42)
[2024-03-06] MEDS: HYDROCODONE/ACET 5-325 MG TABLET 2 TAB PO (22:43)
[2024-03-06 22:45] VITALS: PULSE 79; O2SAT 97
== END 2024-03-06 22:47 | disposition home or self-care (01) ==
PROVIDERS: Emergency Medicine; Emergency Provider Emergency Medicine; PCP Nurse Practitioner Family
DX: N83.201 Unspecified ovarian cyst, right side (principal); Z98.84 Bariatric surgery status; Z87.891 Personal history of nicotine dependence
CPT/HCPCS: 36415; 74177; 80053; 81001; 84703; 85025; 87086; 87150; 87186; 96374; 96375; 99285; J1885; J2405; Q0162; Q9967

== ENCOUNTER 2024-03-09 14:02 | Outpatient (OUT) | payer MEDICAID, SELFPAY ==
--- NOTE | 2024-03-09 14:05 | US_ITS ---
The [address] [address] Patient Name: ANGELES ORTIZ MRN: [id number] date: 1985 Sex: F Assigned Patient Location: [facility] Current Patient Location: Accession/Order Number: [id number] Exam Date: 03/09/2024 14:05 Report Date: 03/10/2024 09:03 At the request of: KIKO ARGUETA Procedure: US pelvis w/ transvaginal EXAMINATION: US pelvis w/ transvaginal HISTORY: PELVIC PAIN COMPARISON: No relevant comparison available. FINDINGS: Transabdominal and transvaginal images The uterus is enlarged in size heterogeneous in echotexture measuring 11.0 x 5.0 x 5.3 cm. The uterus is anteverted, anteflexed. No focal myometrial mass. The endometrium measures 1.3 cm. An IUD is reported however images are indeterminate for an IUD The right ovary is enlarged measuring 7.0 x 5.3 x 5.1 cm. Normal color and Doppler flow. Area of anechoic echogenicity with internal low-level echoes and septations but no color flow measuring 5.5 x 4.2 x 3.4 cm Left ovary is not visualized Suboptimal exam secondary to patient body habitus US/US pelvis w/ transvaginal IMPRESSION: 5.5 cm complex cystic structure in the right ovary. Differential diagnosis includes a complex cyst, hemorrhagic cyst or endometrioma Electronically authenticated by: ESTELLA WHITEHEAD Date: 03/10/2024 09:03
== END 2024-03-09 14:03 | disposition home or self-care (01) ==
LOC: NOMS 14:03
PROVIDERS: PCP Nurse Practitioner Family; Visit Provider Obstetrics & Gynecology
DX: R10.2 Pelvic and perineal pain (principal); N83.201 Unspecified ovarian cyst, right side; N83.291 Other ovarian cyst, right side
CPT/HCPCS: 76830; 76856

== ENCOUNTER 2024-03-12 20:46 | Emergency (ER) | payer MEDICAID, SELFPAY ==
[2024-03-12 20:49] VITALS: BP 128/80; PULSE 78; TEMP 36.7; O2SAT 100; BMI 63.2
--- OUTSIDE RECORDS SUMMARY | 2024-03-12 20:52 | XMS_ITS | CCD ---
Author Organization [facility] Care Team Providers Care Patient Accounts Coordinator Name Role Phone GENEVA ESTRADA Unavailable Unavailable RUMSCHLARoro, ELIZABET Primary Care Unavailable CHANA THOMAS Referring Unavailable Kaylin Simentalty Primary Care Provider CHANA THOMAS Referring Unavailable RUMSCHLAG, ELIZABET Primary Care Unavailable KYLAH VARGAS Admitting Unavailable KYLAH VARGAS Attending Unavailable KYLAH VARGAS Referring Unavailable RUMSCHLAG, ELIZABET Primary Care Unavailable Rumschlag Elizabet TRINH Primary Care Provider LucasGeneva mauro CNP Primary Care Provider [place] Unavailable Celsa Argueta Unavailable Rupinder Blakely Unavailable Estella Nguyen Unavailable Bambi Gonzalez Unavailable Christa Tyler Unavailable LucasGeneva mauro CNP Primary Care Provider Rob Garcia Unavailable LucasGeneva mauro CNP Primary Care Provider [phone] NON STAFF Primary Care Provider UnavailROBERT Jo Attending Provider [phone] Elizabet Simental Primary Care Provider [phone] Kaylin Simentalty Primary Care Provider [phone] ARMANDOC, DR JAVED Attending Unavailable MISC, DR JAVED Admitting Unavailable [facility] Primary Care Unavailable MISC, DR JAVED Attending Unavailable MISC, DR JAVED Consulting Unavailable MISC, DR JAVED Admitting Unavailable [facility] Primary Care Unavailable WEST, DR ESTELLA Steiner Consulting Unavailable REQUEST, DR GUTIÉRREZ LISTED Admitting Unavaila ble REQUEST, DR GUTIÉRREZ LISTED Attending Unavaila ble [facility] Primary Care Unavailable MISC, DR JAVED Consulting Unavailable MISC, DR JAVED Consulting Unavailable MISC, DR JAVED Admitting Unavailable [facility] Primary Care Unavailable MISC, DR JAVED Attending Unavailable Darrel Nichols Consulting Unavailable RUMSCHLAG, ELIZABET Consulting Unavailable MISC, DR JAVED Attending Unavailable MISC, DR JAVED Admitting Unavailable [facility] Primary Care Unavailable HAY ., DR STEPHENS Admitting Unavailable HAY ., DR STEPHENS Attending Unavailable [facility] Primary Care Unavailable LAYNECHNANETTE ., MICHELLE MCGINNIS Consulting Unavailabl e ESTELLA ALVES Consulting Unavailable LAYNECHNANETTE ., MICHELLE MCGINNIS Consulting Unavailabl e BERENICE BAKER Admitting Unavailable [facility] Primary Care Unavailable BERENICE BAKER Attending Unavailable MANPREET TORRES Consulting Unavailable JARON FABIAN Admitting Unavailable DENYS ., MR AGUILAR Consulting Unavailable JARON FABIAN Attending Unavailable [facility] Primary Care Unavailable Linda South Unavailable Christa Tyler Attending Unavailable Christa Tyler Admitting Unavailable NON STAFF Primary Care Unavailable Linda South Attending Unavailable Linda Souht Admitting Unavailable NON STAFF Primary Care Unavailable Rumschlag DO, Elizabet Primary Care Provider JOE GRANDA Attending Unavailable RUMSCHLAG, ELIZABET Primary Care Unavailable JOE GRANDA Admitting Unavailable JOE GRANDA Attending Unavailable RUMSCHLAG, ELIZABET Primary Care Unavailable JOE GRANDA Admitting Unavailable Rumschlag DO, Elizabet Primary Care Provider JOE GRANDA Referring Unavailable RUMSCHLAG, ELIZABET Primary Care Unavailable RUMSCHLAG, ELIZABET Primary Care Unavailable JOE GRANDA Attending Unavailable RUMSCHLAG, ELIZABET Primary Care Unavailable JAYSHREE HUFFMAN Referring Unavailable MIREILLE DAO Attending Unavailable RUMSCHLAG, ELIZABET Referring Unavailable RUMSCHLAG, ELIZABET Primary Care Unavailable GUTNICK, JOE R Referring Unavailable RUMSCHLAG, ELIZABET Primary Care Unavailable JAYSHREE HUFFMAN Attending Unavailable GUTALEJANDRA REYNOLDSE R Referring Unavailable RUMSCHLAG, ELIZABET Primary Care Unavailable ALEX MONSIVAIS Attending Unavailable GUTALEJANDRA REYNOLDSE R Referring Unavailable EARL MCGEE Attending Unavailable RUMSCHLAG, ELIZABET Primary Care Unavailable RUMSCHLAG, ELIZABET Primary Care Unavailable GUTRODOLFO, JOE R Referring Unavailable RUMSCHLAG, ELIZABET Primary Care Unavailable NONI SUMMERS Referring Unavailable GUTALEJANDRA REYNOLDSE R Referring Unavailable JAYSHREE HUFFMAN Attending Unavailable RUMSCHLAG, ELIZABET Primary Care Unavailable SHAUNNA PERSAUD Attending Unavailable RUMSCHLAG, ELIZABET Primary Care Unavailable GUTRODOLFO, JOE R Referring Unavailable RUMSCHLAG, ELIZABET Primary [...] Primary Care Unavailable RUPINDER COLBERT Attending Unavailable KALEE, JOE R Referring Unavailable GUTRODOLFO, JOE R Referring Unavailable RUMSCHLAG, ELIZABET Primary Care Unavailable SAYRA RUPINDER Attending Unavailable GUTALEJANDRA ERYNOLDSE R Referring Unavailable RUMSCHLAG, ELIZABET Primary Care Unavailable ALEJANDRA GRANDAE R Attending Unavailable OTILIO LEON Referring Unavailable SERVICES, [facility] Primary Care Unava ilable OTILIO LEON Referring Unavailable SERVICES, [facility] Primary Care Unava ilable OTILIO LEON Attending Unavailable CAROLYN, OTILIO Naqvi Referring Unavailable SERVICES, [facility] Unava ilable CAROLYN, OTILIO Naqvi Admitting Unavailable CAROLYN, OTILIO Naqvi Attending Unavailable CAROLYN, OTILIO Naqvi Referring Unavailable SERVICES, [facility] Unava ilable YOSHI DELGADO Attending Unavailable SERVICES, [facility] Unava ilable CAROLYN, OTILIO Naqvi Admitting Unavailable CAROLYN, OTILIO Naqvi Attending Unavailable CAROLYN, OTILIO Naqvi Referring Unavailable SERVICES, [facility] Unava ilable YOSHI DELGADO Attending Unavailable SERVICES, [facility] Unava ilable CHERRI, KIKO Attending Unavailable CHERRI, KIKO Attending Unavailable APLING, KATIA Mart Attending Unavailable APLING, KATIA Mart Referring Unavailable CAROLYN, OTILIO Naqvi Attending Unavailable APLING, KATIA Mart Attending Unavailable CAROLYN, OTILIO Naqvi Attending Unavailable APLING, KATIA Mart Attending Unavailable APLING, KATIA Mart Attending Unavailable BERRY, PUJA Attending Unavailable MYERHOLTZ, ZOHRA Referring Unavailable CHERRI, KIKO Attending Unavailable Allergies Allergy Classification Reported Allergen(s) Allergy Type Date of Onset Reaction(s) Facility (2 sources) Adhesive Tape Propensity to adverse reactions to drug 10-11-19 17 [place], [place] (6 sources) Penicillins; Translations: [PENICILLINS] Propensity to adverse reactions to drug 05-29-20 17 Hives, [place], [place] (14 sources) traMADol; Translations: [Ultram TABS] Drug Allergy 08-28-19 13 Hives, [place], [place] (20 sources) Amoxicillin-Pot Clavulanate; Translations: [AMOXICILLIN-POT CLAVULANATE] Propensity to adverse reactions to drug 10-11-19 17 Diarrhea, Other (See Comments) [place], [place] (20 sources) Cephalexin; Translations: [CEPHALEXIN] Drug Allergy 05-06-20 19 Rash, Itching [facility] (1 source) *Adhesive Tape Propensity to adverse reactions 11-10-19 07 [facility] (7 sources) Penicillins Drug Allergy 05-06-20 19 Hives [facility] (20 sources) traMADol; Translations: [TRAMADOL HCL] Drug Allergy 03-13-20 15 Itching [facility] (20 sources) Adhes. Imis-Twlt-Wbuxjvo onium; Translations: [ADHES. YBLA-RMOX-BRDTFQY ONIUM] Drug Allergy 03-13-[address] [facility] (20 sources) Adhesive Tape-Silicones; Translations: [ADHESIVE TAPE-SILICONES] Drug Allergy 05-06-[address] [facility] (9 sources) Amoxicillin / Clavulanate; Translations: [Augmentin TABS] Drug Allergy stomach upset RS-QAWQZ-Qeucjs r 206A [facility] Work Phone: (1 source) Cephalexin; Translations: [Keflex TABS] Drug Allergy RW-HPVWZ-Bglawj r 206A [facility] Work Phone: (1 source) Penicillins; Translations: [Penicillins] Allergy to drug (finding) DT-HHNGE-Yheavs r 206A [facility] Work Phone: (11 sources) Adhesive agent; Translations: [Adhesive] Propensity to adverse reactions 11-10-19 07 rash,blisterin g, [facility] (8 sources) Cephalexin; Translations: [Keflex] Drug Allergy itchy [facility] (9 sources) Doxycycline Drug Allergy stomach upset [facility] Other (9 sources) penicillAMINE Drug Allergy rash [facility] Other (9 sources) Penicillin G Drug Allergy Unknown [facility] Other (20 sources) Penicillins Drug Allergy 05-06-20 19 [facility] (2 sources) Amoxicillin / Clavulanate Drug Allergy 12-18-19 17 stomach upset [facility] (1 source) Penicillins Drug allergy (disorder) [facility] (1 source) traMADol Drug Allergy 08-28-19 13 [facility] Medications Current Medications Medication Drug Class(es) [...] as needed. Take 2 tablets by mo [facility] every 6 hours for 4 days. ARIPiprazole [...] Citrate Active take 2 tablets by mo [facility] once daily, then take 1 tablet by [...] mg docusate sodium 50 mg / sennosides, [facility] 8.6 mg oral tablet (11 sources) Start: [...] otherwise advised. Take 1 tablet by claudia once daily. DULoxetine 60 mg delayed release oral capsule (20 sources) Serotonin and Norepinephrine Reuptake Inhibitor Start: take 1 capsule by mouth twice daily DULoxetine [address] Particles capsule DR Take 60 mg by mouth 2 times daily. 0 04/25/2021 Active Start: 07-27-2019 take 1 capsule by mo [facility] once daily DULoxetine (CYMBALTA) 60 MG extended [...] therapy completed) take 1 capsule by mo [facility] every twenty-four hours Vistaril 25 MG 1 [...] 100 mg by mouth every morning. levonorgestrel 0.951037 mg/hr intrauterine system (19 sources) Progestin, Progestin-containing [...] 0 07/20/2023 10/18/2023 Active Start: 03-03-2023 omeprazole (MO ILOSEC) 40 mg capsule TAKE 1 CAPSULE BY MOUTH 30 MINUTES BEFORE morning meal 0 03/03/2023 Active Comment on above: TAKE 1 CAPSULE BY MO UT 30 MINUTES BEFORE morning meal Take 1 capsule by mo uth two times a day. 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 Comment on above: Performed By: #### 2106-3 #### [facility] ([id number]) [address] [place] [address], [place] [address] VITAMIN John 11-27-2023 VITAMIN K 0.75 nmol/L Normal 0.22-4.88 [facility] Comment on above: Order Comment: Specimen Type: BLOOD SPEC IMENOrdering Facility: [facility] Address: [address] [place], [place] [id number] Result Comment: INTE RPRETIVE INFORMATION: Vitamin K1, Serum Vitamin K concentration is reported as nanomoles per liter (nmol/L). To convert concentration to nanograms per milliliter (ng/mL), multiply the result by 0.45. This test was developed and its performance characteristics determined by [facility]. It has not been cleared or approved by the [place] Food and Drug Administration. This test was performed in a CLIA certified laboratory and is intended for clinical purposes. Performed By: [facility] [address] [place] [address] A Operator: John Newsome MD, PhD CLIA Number: [id number] Performed By: #### V ITK ####[facility] [id number] [place] [address] HCG ( test) Ql (U)o n 11-04-2023 Beta HCG ( test) Ql (U) Negative [facility]G [facility] Comment on above: Performed By: #### 2106-3 #### [facility] ([id number]) [address] [place] [address], [place] [address] 25(OH)D3 [facility] 25-hydroxyvitami n D3 [Mass/Vol] 29.3 ng/mL Low 31.0-80.0 [facility] Comment on above: Order Comment: Specimen Type: BLOOD SPEC IMEN [facility] Address: [address] [place] [address] Performed By: #### 2 284-8, 2731-8, 2132-9 #### [facility] CLIA [id number] [address] [place], [place] [address] [address] [place] A-Tocopherol Vit E SerPl-mCn con 10-28-2023 Alpha tocopherol [Mass/Vol] 7.0 mg/L Normal 6.0-23.0 [facility] Comment on above: Order Comment: Specimen Type: BLOOD SPEC IMENOrdering Facility: [facility] Address: [address] [place] [id number] Performed By: #### 2 923-1, 1822-09 ####[facility] LAB[facility] [id number] [place] [id number] [place] Alpha tocopherol [Mass/Vol]o n 10-28-2023 Beta+gamma tocopherol [Mass/Vol] 0.7 mg/L Normal 0.3-3.2 [facility] Comment on above: Order Comment: Specimen Type: BLOOD SPEC IMENOrdering Facility: [facility] Address: [address] [place] [address] Result Comment: This test was developed and its performance characteristics determined by [facility] Pathology and Laboratory Medicine [place] ([facility]). It has not been cleared or approved by the FDA. [facility] is regulated under CLIA as qualified to perform high-complexity testing. This test is used for clinical purposes. It should not be regarded as investigational or for research. Performed By: #### 2 923-, 1822-09 ####[facility]IA [id number] [place] [address] [place] CBC panel Auto (Bld)on 10-27 Erythrocyte distribution width (RBC) [Ratio] 14.3 % Normal 11.5-15.0 [facility] Comment on above: Order Comment: Specimen Type: BLOOD SPEC IMENOrdering Facility: [facility] Address: [address] [place] [address] Performed By: #### 5 8410-2 ####[facility] LABCLIA [id number] [place] [address] Hematocrit (Bld) [Volume fraction] 43.5 % Normal 36.0-46.0 [facility] Comment on above: Order Comment: Specimen Type: BLOOD SPEC IMENOrdering Facility: [facility] Address: [address] [place] [address] Performed By: #### 5 8410-2 ####[facility] LABCLIA [id number] [place] [address] Hemoglobin (Bld) [Mass/Vol] 13.6 g/dL Normal 11.5-15.5 [facility] Comment on above: Order Comment: Specimen Type: BLOOD SPEC IMENOrdering Facility: [facility] Address: [address] [place] [address] Performed By: #### 5 8410-2 ####[facility] LABCLIA [id number] [place] [address] MCH (RBC) [Entitic mass] 27.5 pg Normal 26.0-34.0 [facility] Comment on above: Order Comment: Specimen Type: BLOOD SPEC IMENOrdering Facility: [facility] Address: [address] [place] [address] Performed By: #### 5 8410-2 ####[facility] LABCLIA [id number] [place] [address] MCHC (RBC) [Mass/Vol] 31.3 g/dL Normal 30.5-36.0 [facility] Comment on above: Order Comment: Specimen Type: BLOOD SPEC IMENOrdering Facility: [facility] Address: [address] [place] [address] Performed By: #### 5 8410-2 ####[facility] LABCLIA [id number] [place] [address] MCV (RBC) [Entitic vol] 88.1 fL Normal 80.0-100.0 [facility] Comment on above: Order Comment: Specimen Type: BLOOD SPEC IMENOrdering Facility: [facility] Address: [address] [place] [address] Performed By: #### 5 8410-2 ####[facility] LABIA [id number] [place] [address] Nucleated RBC (Bld) [#/Vol] 10*3/uL Normal <0.01 [facility] Comment on above: Order Comment: Specimen Type: BLOOD SPEC IMENOrdering Facility: [facility] Address: [address] [place] [address] Performed By: #### 5 8410-2 ####[facility] LABCLIA [id number] [place] [address] Platelet mean volume (Bld) [Entitic vol] 8.8 fL Low 9.0-12.7 [facility] Comment on above: Order Comment: Specimen Type: BLOOD SPEC IMENOrdering Facility: [facility] Address: [address] [place] [address] Performed By: #### 5 8410-2 ####[facility] LABCLIA [id number] [place] [address] Platelets (Bld) [#/Vol] 722 10*3/uL High 150-400 [facility] Comment on above: Order Comment: Specimen Type: BLOOD SPEC IMENOrdering Facility: [facility] Address: [address] [place] [address] Performed By: #### 5 8410-2 ####[facility] LABCLIA [id number] [place] [address] RBC (Bld) [#/Vol] 4.94 10*6/uL Normal 3.90-5.20 [facility] Comment on above: Order Comment: Specimen Type: BLOOD SPEC IMENOrdering Facility: [facility] Address: [address] [place] [address] Performed By: #### 5 8410-2 ####[facility] LABCLIA [id number] [place] [address] WBC (Bld) [#/Vol] 14.70 10*3/uL High 3.70-11.00 [facility] Comment on above: Order Comment: Specimen Type: BLOOD SPEC IMENOrdering Facility: [facility] Address: [address] [place] [address] Performed By: #### 5 8410-2 ####[facility] LABCLIA [id number] [place] [address] Comprehensive metabolic 2000 panelon 10-28-2023 Albumin [Mass/Vol] 4.2 g/dL Normal 3.9-4.9 [facility] Comment on above: Order Comment: Specimen Type: BLOOD SPEC IMEN [facility] Address: [address] [place] [address] Performed By: #### 2 284-8, 273-8, 2132-02 #### [facility] CLIA [id number] [address] [place] [address] [place] ALP [Catalytic activity/Vol] 137 U/L High 34-123 [facility] Comment on above: Order Comment: Specimen Type: BLOOD SPEC IMEN [facility] Address: [address] [place] [address] Performed By: #### 2 284-8, 2730-8, 2132-02 #### [facility] CLIA [id number] [address] [place] [address] [place] ALT [Catalytic activity/Vol] 37 U/L Normal 7-38 [facility] Comment on above: Order Comment: Specimen Type: BLOOD SPEC IMEN [facility] Address: [address] [place] [address] Performed By: #### 2 284-8, 2730-8, 2132-02 #### [facility] CLIA [id number] [address] [place], [place] [address] [place] Anion gap [Moles/Vol] 10 mmol/L Normal 9-18 [facility] Comment on above: Order Comment: Specimen Type: BLOOD SPEC IMEN [facility] Address: [address] [place] [address] Performed By: #### 2 284-8, 273-8, 2132-02 #### [facility] CLIA [id number] [address] [place] [address] [place] AST [Catalytic activity/Vol] 25 U/L Normal 13-35 [facility] Comment on above: Order Comment: Specimen Type: BLOOD SPEC IMEN [facility] Address: [address] [place] [address] Performed By: #### 2 284-8, 2730-8, 2132-02 #### [facility] CLIA [id number] [address] [place] [address] [place] Bilirubin [Mass/Vol] mg/dL Low 0.2-1.3 [facility] Comment on above: Order Comment: Specimen Type: BLOOD SPEC IMEN [facility] Address: [address] [place] [address] Performed By: #### 2 284-8, 2730-8, 2132-02 #### [facility] CLIA [id number] [address] [place] [address] [place] Calcium [Mass/Vol] 9.5 mg/dL Normal 8.5-10.2 [facility] Comment on above: Order Comment: Specimen Type: BLOOD SPEC IMEN [facility] Address: [address] [place] [address] Performed By: #### 2 284-8, 2730-8, 2132-02 #### [facility] CLIA [id number] [address] [place] [address] [place] Chloride [Moles/Vol] 101 mmol/L Normal 97-105 [facility] Comment on above: Order Comment: Specimen Type: BLOOD SPEC IMEN [facility] Address: [address] [place] [address] Performed By: #### 2 284-8, 8, 2132-02 #### [facility] CLIA [id number] [address] [place] [address] [place] CO2 [Moles/Vol] 26 mmol/L Normal 22-30 [facility] Comment on above: Order Comment: Specimen Type: BLOOD SPEC IMEN [facility] Address: [address] [place] [address] Performed By: #### 2 284-8, 8, 2132-02 #### [facility] CLIA [id number] [address] [place] [address] [place] Creatinine [Mass/Vol] 0.76 mg/dL Normal 0.58-0.96 [facility] Comment on above: Order Comment: Specimen Type: BLOOD SPEC IMEN [facility] Address: [address] [place] [address] Performed By: #### 2 284-8, 8, 2132-02 #### [facility] CLIA [id number] [address] [place] [address] [place] Creatinine and Glomerular filtration rate.predicted panel (S/P/Bld) 103 mL/min/1.73m??? Normal >=60 [facility] Comment on above: Order Comment: Specimen Type: BLOOD SPEC IMEN [facility] Address: [address] [place] [address] Result Comment: Janet mated Glomerular Filtration Rate [...] By: #### 2 284-8, 8, 2132-02 #### [facility] CLIA [id number] [address] [place] [address] [place] Glucose [Mass/Vol] 155 mg/dL High 74-99 [facility] Comment on above: Order Comment: Specimen Type: BLOOD SPEC IMEN [facility] Address: [address] [place] [address] Result Comment: The [employer] Diabetes Association (ADA) provides guidance for cutoff [...] Standards of Medical Care in Diabetes 2016, [employer]. Diabetes Care. 2016.39(Suppl 1). Performed By: #### 2 284-8, 8, 2132-02 #### [facility] CLIA [id number] [address] [place] [address] [place] Potassium [Moles/Vol] 3.7 mmol/L Normal 3.7-5.1 [facility] Comment on above: Order Comment: Specimen Type: BLOOD SPEC IMEN [facility] Address: [address] [place] [address] Performed By: #### 2 284-8, 2731-01, 2132-02 #### [facility] CLIA [id number] [address] [place] [address] [place] Protein [Mass/Vol] 7.9 g/dL Normal 6.3-8.0 [facility] Comment on above: Order Comment: Specimen Type: BLOOD SPEC IMEN [facility] Address: [address] [place] [address] Performed By: #### 2 284-8, 8, 2132-02 #### [facility] CLIA [id number] [address] [place] [address] [place] Sodium [Moles/Vol] 137 mmol/L Normal 136-144 [facility] Comment on above: Order Comment: Specimen Type: BLOOD SPEC IMEN [facility] Address: [address] [place] [address] Performed By: #### 2 284-8, 2731-8, 9 #### [facility] CLIA [id number] [address] [place] [address] [place] Urea nitrogen [Mass/Vol] 11 mg/dL Normal 7-21 [facility] Comment on above: Order Comment: Specimen Type: BLOOD SPEC IMEN [facility] Address: [address] [place] [address] Performed By: #### 2 284-8, 2731-8, 9 #### [facility] CLIA [id number] [address] [place] [address] [place] Ferritin SerPl-mCncon 2023 Ferritin [Mass/Vol] 50.4 ng/mL Normal 14.7-205.1 [facility] [facility] Comment on above: Order Comment: Specimen Type: BLOOD SPEC IMENOrdering Facility: [facility] Address: [address] [place] [address] Performed By: #### 2 276-4, 80710-7 ####[facility] [id number] [place] [address] [place] Folate SerPl-mCncon 10-28-19 24 Folate [Mass/Vol] 15.7 ng/mL Normal >4.7 [facility] Comment on above: Order Comment: Specimen Type: BLOOD SPEC IMEN [facility] Address: [address] [place] [address] Performed By: #### 2 284-8, 2731-8, 9 #### [facility] CLIA [id number] [address] [place] [address] [place] HbA1c (Bld)on 10-28-2023 Average glucose Estimated from glycated hemoglobin (Bld) [Mass/Vol] 128 mg/dL Normal [facility] Comment on above: Order Comment: Specimen Type: BLOOD SPEC IMEN [facility] Address: [address] [place] [address] Result Comment: eAG: (Estimated average glucose) is a calculated value from HgbA1c and is account retention representative of the average blood glucose level in the last 2-3 month period. Performed By: #### 5 5454-3 #### [facility] CLIA [id number] [address] [place] [address] [place] HbA1c (Bld) [Mass fraction] 6.1 % High 4.3-5.6 [facility] Comment on above: Order Comment: Specimen Type: BLOOD SPEC IMEN [facility] Address: [address] [place] [address] Result Comment: Amer [place] Diabetes Association guidelines indicate that patients with HgbA1c in the range 5.7-6.4% are at increased risk for development of diabetes, and intervention by lifestyle modification may be beneficial. HgbA1c greater or equal to 6.5% is considered diagnostic of diabetes. Performed By: #### 5 5454-3 #### [facility] CLIA [id number] [address] [place] [address] [place] Iron and Iron binding capaci ty panelon 10-28-2023 Iron [Mass/Vol] 29 ug/dL Low 41-186 [facility] Comment on above: Order Comment: Specimen Type: BLOOD SPEC IMENOrdering Facility: [facility] Address: [address] [place] [address] Performed By: #### 2 276-4, 64562-0 ####[facility] LABCLIA [id number] [place] [address] [place] Iron binding capacity [Mass/Vol] 369 ug/dL Normal 232-386 [facility] Comment on above: Order Comment: Specimen Type: BLOOD SPEC IMENOrdering Facility: [facility] Address: [address] [place] [address] Performed By: #### 2 276-4, 46026-8 ####[facility] LABCLIA [id number] [place] [address] [place] Iron/TIBC [Molar ratio] 7.9 % Low 15.0-57.0 [facility] Comment on above: Order Comment: Specimen Type: BLOOD SPEC IMENOrdering Facility: [facility] Address: [address] [place] [address] Performed By: #### 2 276-4, 91440-7 ####[facility] LABCLIA [id number] [place] [address] [place] PTH-Intact SerPl-mCncon 05-0 Parathyrin.intac t [Mass/Vol] 60 pg/mL Normal 15-65 [facility] Comment on above: Order Comment: Specimen Type: BLOOD SPEC IMEN [facility] Address: [address] [place] [address] Performed By: #### 2 284-8, 2731-8, 2132-9 #### [facility] CLIA [id number] [address] [place] [address] [place] VITAMIN B1 (THIAMINE), WHOLE BLOODon 10-28-2023 Thiamine (Bld) [Moles/Vol] 289.8 nmol/L High 84.3-213.3 [facility] Comment on above: Order Comment: Specimen Type: BLOOD SPEC IMENOrdering Facility: [facility] Address: [address] [place] [address] Result Comment: This assay measures the concentration of thiamine diphosphate (TDP), the primary active form of vitamin B1. Approximately 90 percent of vitamin B1 present in whole blood is TDP. Thiamine and thiamine monophosphate, which comprise the remaining 10 percent, are not measured. This test was developed and its performance characteristics determined by [facility]'s Gennaro [facility] Path[facility] [place] (-[facility]). It has not been cleared or approved by the FDA. -[facility] is regulated under CLIA as qualified to perform high-complexity testing. This test is used for clinical purposes. It should not be regarded as investigational or for research. Performed By: #### B 1WB ####[facility] LABCLIA [id number] [place] [address] [place] VITAMIN John 10-28-2023 VITAMIN K 6.74 nmol/L High 0.22-4.88 [facility] Comment on above: Order Comment: Specimen Type: BLOOD SPEC IMEN [facility] Address: [address] [place] [address] Result Comment: Elevated vitamin K concentration may be associated with increased lipid concentration. INTERPRETIVE INFORMATION: Vitamin K1, Serum Vitamin K concentration is reported as nanomoles per liter (nmol/L). To convert concentration to nanograms per milliliter (ng/mL), multiply the result by 0.45. This test was developed and its performance characteristics determined by [facility]. It has not been cleared or approved by the [place] Food and Drug Administration. This test was performed in a CLIA certified laboratory and is intended for clinical purposes. Performed By: [facility] [address] [place] [address] A Operator: John Newsome MD, PhD CLIA Number: [id number] Performed By: #### 2 284-8, 2731-8, 2132-9 #### [facility] CLIA [id number] [address] [place] [address] [place] Vit A SerPl-mCncon 4 Retinol [Mass/Vol] 0.37 mg/L Normal 0.30-1.20 [facility] Comment on above: Order Comment: Specimen Type: BLOOD SPEC IMENOrdering Facility: [facility] Address: [address] [place] [address] Result Comment: This test was developed and its performance characteristics determined by [facility]'s [facility] [place] ([facility]). It has not been cleared or approved by the FDA. [facility] is regulated under CLIA as qualified to perform high-complexity testing. This test is used for clinical purposes. It should not be regarded as investigational or for research. Performed By: #### 2 923-1, 1823-4 ####[facility] LABCLIA [id number] [place] [address] [place] Vit [facility] Cobalamin (Vitamin B12) [Mass/Vol] 817 pg/mL Normal 232-1245 [facility] Comment on above: Order Comment: Specimen Type: BLOOD SPEC IMEN [facility] Address: [address] [place] [address] Performed By: #### 2 284-8, 8, 2132-02 #### [facility] CLIA [id number] [address] [place] [address] [place] Zinc [facility]Pl[facility] 10-28-2023 Zinc [Mass/Vol] 45 ug/dL Low 60-120 [facility] Comment on above: Order Comment: Specimen Type: BLOOD SPEC IMEN [facility] Address: [address] [place] [address] Result Comment: This test was developed and its performance characteristics determined by [facility] [place] ([facility]). It has not been cleared or approved by the FDA. [facility] is regulated under CLIA as qualified to perform high-complexity testing. This test is used for clinical purposes. It should not be regarded as investigational or for research. Performed By: #### 2 284-8, 2730-8, 2132-02 #### [facility] CLIA [id number] [address] [place], [place] [address] [place] BASIC METABOLIC PANLon 10-19 Anion gap [Moles/Vol] 12 mmol/L Normal 5-15 [facility] Comment on above: Performed By: #### BMP #### [facility] ([id number]) [address] [place] [address] Calcium [Mass/Vol] 9.7 mg/dL Normal 8.5-10.5 [facility] Comment on above: Performed By: #### BMP #### [facility] ([id number]) [address], [address] [place] [address] Chloride [Moles/Vol] 100 mmol/L Normal 98-109 [facility] Comment on above: Performed By: #### BMP #### [facility] ([id number]) [address] [place] [address] CO2 [Moles/Vol] 25 mmol/L Normal 22-32 [facility] Comment on above: Performed By: #### BMP #### [facility] ([id number]) [address], [address] [place] [address] Creatinine [Mass/Vol] 0.72 mg/dL Normal 0.40-1.00 [facility] Comment on above: Result Comment: METHOD TRACEABLE TO IDMS STANDARD Performed By: #### B MP #### [facility] ([id number]) [address] [place] [address] eGFR (CKD-EPI) NON-RACE DEPENDENT >90 Normal >59 [facility] Comment on above: Result Comment: Reported eGFR is based on the CKD-EPI 2020 equation that does not use a race coefficient. Performed By: #### B MP #### [facility] ([id number]) [address], [address] [place] [address] Glucose [Mass/Vol] 89 mg/dL Normal 65-99 [facility] Comment on above: Performed By: #### BMP #### [facility] ([id number]) [address] [place] [address] Potassium [Moles/Vol] 4.0 mmol/L Normal 3.5-5.0 [facility] Comment on above: Performed By: #### BMP #### [facility] ([id number]) [address] [place] [address] Sodium [Moles/Vol] 137 mmol/L Normal 134-146 [facility] Comment on above: Performed By: #### BMP #### [facility] ([id number]) [address] [place] [address] Urea nitrogen [Mass/Vol] 18 mg/dL Normal 5-23 [facility] Comment on above: Performed By: #### BMP #### [facility] ([id number]) [address] [facility] [place] [address] CNOVon 09-07-2023 CNOV Office Visit (BMINO) SUSI ORTIZ ([id number]) 1985 F FN Date Time Provider Department 09/07/23 9:30 AM JAYSHREE HUFFMAN During your visit today, we recorded the following information about you: Temperature Pulse Blood pressure Weight 98 degrees 80/minute 107/81 169.9 kg Height 1.626 m Jayshree Huffman APRN.SAW CLE[employer]ER 09/07/2023 10:12 AM Signed BMI SURGERY Post Op Clinic Note September 07, 2023 INTERVAL HISTORY: Susi Jeanenship is here for 1 month post op [...] loss: 6.128 kg (13 lb 8.2 oz) [place] weight: 66.1 kg (145 lb 10.6 oz) [...] Orders FOLLOW UP: as scheduled Jayshree Huffman APRN.SAW [employer]ER Referring Provider: JOE GRANDA [[id number]] Allergies As of Date: 09/07/2023 Noted Allergy Reaction AD (more content not included)... Normal [facility] ANES POSTPROC EVALon 024 ANES POSTPROC EVAL HNO ID: [id number] Author: AMANDA ALCANTAR DO Service: Anesthesiology Author [...] August 17, 2023 TIME: 11:37 AM CSN: [id number] [facility] CNOVon 08-17-2023 CNOV Office Visit (BMIREJ ) ANGELSUSI Naqvi ([id number]) 1985 F FNS Date Time Provider Department 08/17/23 10:00 AM NATHANAEL JAYSHREE BMIREJ During your visit today, we recorded the following information about you: Temperature Pulse Blood pressure Weight 97.3 degrees 75/minute 117/75 167.8 kg Height 1.626 m Jayshree Huffman APRN.CNP 08/17/2023 10:41 AM Signed Assessment BMI Surgical [...] loss: 8.2 kg (18 lb 1.2 oz) [place] weight: 66.1 kg (145 lb 10.6 oz) [...] 07/08/2023 (Approximate) SpO2 97% BMI 63.50 kg/m? hayden LEAHY, BRANDY Incision: dermabond prineo intact over entire [...] advance diet (more content not included)... Normal [facility] 08-13-2023 CNPN Telephone (GENBMI) SUSI ORTIZ ([id number]) 1985 F FNS Date Time Provider Department 08/13/23 NIKI PETERSON GENI During your visit today, we recorded the [...] appt. Reminded patient of how to reach [facility] or their surgeons office. Patient reminded to seek medical attention if they develop chest pain, a sudden onset of shortness of breath or persistent pain in the calf of their legs - BEST TO ALWAYS present to F hospital where you had your surgery Patient verbalized understanding of all advice and instructions given. Niki Peterson RN Allergies As of Date: 08/13/2023 Noted Allergy Reaction ADHES. [id number] 03/13/2015 2 - Rash ADHESIVE TAPE-SILICONES 05/06/2019 2 - Rash AUGMENTIN (AMOXICILLIN-POT CLAVUL*05/06/2019 6 - Diarrhea KEFLEX (CEPHALEXIN) 05/06/2019 2 - Rash 9 - Itching PENICILLINS 05/06/2019 4 - Hives ULTRAM (TRAMADOL HCL) 03/13/2015 9 - Itching Date Reviewed: 08/11/2023 Reviewed by: Kria Vance RN - Fully Assessed Reason for [...] affective dis (more content not included)... Normal [facility] Basic metabolic 2000 panelon 08-11-2023 Anion gap [Moles/Vol] 13 mmol/L Normal 9-18 [facility] Comment on above: Order Comment: Specimen Type: BLOOD SPEC IMENOrdering Facility: [facility] Address: [address] [place] [address] Performed By: #### 1 9123-9, 2777-, 86917-0 ####[facility] [id number] [place] [id number] [place] Calcium [Mass/Vol] 8.8 mg/dL Normal 8.5-10.2 [facility] Comment on above: Order Comment: Specimen Type: BLOOD SPEC IMENOrdering Facility: [facility] Address: [address] [place] [address] Performed By: #### 1 9123-9, 2777, 29833-8 ####[facility]ORY[facility] [id number] [place] [address] [place] Chloride [Moles/Vol] 105 mmol/L Normal 97-105 [facility] Comment on above: Order Comment: Specimen Type: BLOOD SPEC IMENOrdering Facility: [facility] Address: [address] [place] [address] Performed By: #### 1 9123-9, 2777, 16230-8 ####[facility]ORY[facility] [id number] [place] [address] [place] CO2 [Moles/Vol] 20 mmol/L Low 22-30 [facility] Comment on above: Order Comment: Specimen Type: BLOOD SPEC IMENOrdering Facility: [facility] Address: [address] [place] [address] Performed By: #### 1 9123-9, 2777-, 03498-6 ####[facility]ORY[facility] [id number] [place] [address] [place] Creatinine [Mass/Vol] 0.57 mg/dL Low 0.58-0.96 [facility] Comment on above: Order Comment: Specimen Type: BLOOD SPEC IMENOrdering Facility: [facility] Address: [address] [place] [address] Performed By: #### 1 9123-9, 2777-1, 93399-8 ####[facility]ORY[facility] [id number] [place] [address] [place] Creatinine and Glomerular filtration rate.predicted panel (S/P/Bld) 119 mL/min/1.73m??? Normal >=60 [facility] Comment on above: Order Comment: Specimen Type: BLOOD SPEC IMENOrdering Facility: [facility] Address: [address] [place] [address] Result Comment: Janet mated Glomerular Filtration Rate [...] GFR. Performed By: #### 1 9123-9, 2777-1, 09918-6 ####[facility]ORY[facility] [id number] [place] [address] [place] Glucose [Mass/Vol] 92 mg/dL Normal 74-99 [facility] Comment on above: Order Comment: Specimen Type: BLOOD SPEC IMENOrdering Facility: [facility] Address: [address] [place] [address] Result Comment: The [place] Diabetes Association (ADA) provides guidance for cutoff [...] Standards of Medical Care in Diabetes 2016, [place] Diabetes Association. Diabetes Care. 2016.39(Suppl 1). Performed By: #### 1 9123-9, 2777-1, 38834-8 ####[facility]ORY[facility] [id number] [place] [address] [place] Potassium [Moles/Vol] 4.2 mmol/L Normal 3.7-5.1 [facility] Comment on above: Order Comment: Specimen Type: BLOOD SPEC IMENOrdering Facility: [facility] Address: [address] [place] [address] Performed By: #### 1 9123-9, 2777-, 51887-3 ####[facility]ATORYCLIA [id number] [place] [address] [place] Sodium [Moles/Vol] 138 mmol/L Normal 136-144 [facility] Comment on above: Order Comment: Specimen Type: BLOOD SPEC IMENOrdering Facility: [facility] Address: [address] [place] [address] Performed By: #### 1 9123-9, 2777-, 34607-2 ####[facility]ORY[facility] [id number] [place] [address] [place] Urea nitrogen [Mass/Vol] 3 mg/dL Low 7-21 [facility] Comment on above: Order Comment: Specimen Type: BLOOD SPEC IMENOrdering Facility: [facility] Address: [address] [place] [address] Performed By: #### 1 9123-9, 2777, 34689-6 ####[facility]ORY[facility] [id number] [place] [address] [place] CBC W Auto Differential pane l (Bld)on 08-11-2023 Basophils (Bld) [#/Vol] 0.00 10*3/uL Normal <0.11 [facility] Comment on above: Order Comment: Specimen Type: BLOOD SPEC IMENOrdering Facility: [facility] Address: [address] [place] [address] Performed By: #### 5 7021-8 ####[facility]ORY[facility] [id number] [place] [address] [place] Basophils/100 WBC (Bld) 0.0 % Normal [facility] Comment on above: Order Comment: Specimen Type: BLOOD SPEC IMENOrdering Facility: [facility] Address: [address] [place] [address] Performed By: #### 5 7021-8 ####[facility]ORY[facility] [id number] [place] [address] [place] Differential cell count method Nom (Bld) Manual Normal [facility] Comment on above: Order Comment: Specimen Type: BLOOD SPEC IMENOrdering Facility: [facility] Address: [address] [place] [address] Performed By: #### 5 7021-8 ####[facility]ATORYCLIA [id number] [place] [address] [place] Eosinophils (Bld) [#/Vol] 0.62 10*3/uL High <0.46 [facility] Comment on above: Order Comment: Specimen Type: BLOOD SPEC IMENOrdering Facility: [facility] Address: [address] [place] [address] Performed By: #### 5 7021-8 ####[facility]ORYCL[facility] [id number] [place] [address] [place] Eosinophils/100 WBC (Bld) 4.0 % Normal [facility] Comment on above: Order Comment: Specimen Type: BLOOD SPEC IMENOrdering Facility: [facility] Address: [address] [place] [address] Performed By: #### 5 7021-8 ####[facility]ORYCLIA [id number] [place] [address] [place] Erythrocyte distribution width (RBC) [Ratio] 14.8 % Normal 11.5-15.0 [facility] Comment on above: Order Comment: Specimen Type: BLOOD SPEC IMENOrdering Facility: [facility] Address: [address] [place] [address] Performed By: #### 5 7021-8 ####[facility]ORYCLIA [id number] [address] [place] Hematocrit (Bld) [Volume fraction] 36.9 % Normal 36.0-46.0 [facility] Comment on above: Order Comment: Specimen Type: BLOOD SPEC IMENOrdering Facility: [facility] Address: [address] [place] [address] Performed By: #### 5 7021-8 ####[facility]ORATORYCLIA [id number] [place] [address] [place] Hemoglobin (Bld) [Mass/Vol] 11.8 g/dL Normal 11.5-15.5 [facility] Comment on above: Order Comment: Specimen Type: BLOOD SPEC IMENOrdering Facility: [facility] Address: [address] [place] [address] Performed By: #### 5 7021-8 ####[facility] LABORATORYCLIA [id number] [place] [address] [place] Lymphocytes (Bld) [#/Vol] 3.59 10*3/uL Normal 1.00-4.00 [facility] Comment on above: Order Comment: Specimen Type: BLOOD SPEC IMENOrdering Facility: [facility] Address: [address] [place] [address] Performed By: #### 5 7021-8 ####[facility]ORYCLIA [id number] [address] [place] Lymphocytes/100 WBC (Bld) 22.0 % Normal [facility] Comment on above: Order Comment: Specimen Type: BLOOD SPEC IMENOrdering Facility: [facility] Address: [address] [place] [address] Performed By: #### 5 7021-8 ####[facility] LABORATORYCLIA [id number] [place] [address] [place] MCH (RBC) [Entitic mass] 29.6 pg Normal 26.0-34.0 [facility] Comment on above: Order Comment: Specimen Type: BLOOD SPEC IMENOrdering Facility: [facility] Address: [address] [place] [address] Performed By: #### 5 7021-8 ####[facility]ORATORYCLIA [id number] [place] [address] [place] MCHC (RBC) [Mass/Vol] 32.0 g/dL Normal 30.5-36.0 [facility] Comment on above: Order Comment: Specimen Type: BLOOD SPEC IMENOrdering Facility: [facility] Address: [address] [place] [address] Performed By: #### 5 7021-8 ####[facility] LABORATORYCLIA [id number] [place] [address] [place] MCV (RBC) [Entitic vol] 92.7 fL Normal 80.0-100.0 [facility] Comment on above: Order Comment: Specimen Type: BLOOD SPEC IMENOrdering Facility: [facility] Address: [address] [place] [address] Performed By: #### 5 7021-8 ####[facility]ORATORYCLIA [id number] [address] [place] Monocytes (Bld) [#/Vol] 1.56 10*3/uL High <0.87 [facility] Comment on above: Order Comment: Specimen Type: BLOOD SPEC IMENOrdering Facility: [facility] Address: [address] [place] [address] Performed By: #### 5 7021-8 ####[facility] LABORATORYCLIA [id number] [place] [address] [facility] Monocytes/100 WBC (Bld) 10.0 % Normal [facility] Comment on above: Order Comment: Specimen Type: BLOOD SPEC IMENOrdering Facility: [facility] Address: [address] [place] [address] Performed By: #### 5 7021-8 ####[facility]ORATORYCLIA [id number] [place] [address] [facility] [place] Neutrophils (Bld) [#/Vol] 9.83 10*3/uL High 1.45-7.50 [facility] Comment on above: Order Comment: Specimen Type: BLOOD SPEC IMENOrdering Facility: [facility] Address: [address] [place] [address] Performed By: #### 5 7021-8 ####[facility]ORATORYCLIA [id number] [place] [address] [place] Neutrophils/100 WBC (Bld) 63.0 % Normal [facility] Comment on above: Order Comment: Specimen Type: BLOOD SPEC IMENOrdering Facility: [facility] Address: [address] [place] [address] Performed By: #### 5 7021-8 ####[facility]ATORYCLIA [id number] [place] [address] [place] Nucleated RBC (Bld) [#/Vol] 0.16 10*3/uL High <0.01 [facility] Comment on above: Order Comment: Specimen Type: BLOOD SPEC IMENOrdering Facility: [facility] Address: [address] [place] [address] Performed By: #### 5 7021-8 ####[facility]ATORYCLIA [id number] [place] [address] [place] Nucleated RBC/100 WBC (Bld) [Ratio] 1.0 /100 WBC Normal [facility] Comment on above: Order Comment: Specimen Type: BLOOD SPEC IMENOrdering Facility: [facility] Address: [address] [place] [address] Performed By: #### 5 7021-8 ####[facility]ORYCLIA [id number] [place] [address] [place] Platelet mean volume (Bld) [Entitic vol] 9.4 fL Normal 9.0-12.7 [facility] Comment on above: Order Comment: Specimen Type: BLOOD SPEC IMENOrdering Facility: [facility] Address: [address] [place] [address] Performed By: #### 5 7021-8 ####[facility]ORATORYCLIA [id number] [place] [address] [place] Platelets (Bld) [#/Vol] 579 10*3/uL High 150-400 [facility] Comment on above: Order Comment: Specimen Type: BLOOD SPEC IMENOrdering Facility: [facility] Address: [address] [place] [address] Performed By: #### 5 7021-8 ####[facility] LABORATORYCLIA [id number] [place] [address] [place] Platelets Estimate (Bld) [#/Vol] Increased Normal [facility] Comment on above: Order Comment: Specimen Type: BLOOD SPEC IMENOrdering Facility: [facility] Address: [address] [place] [address] Performed By: #### 5 7021-8 ####[facility] LABORATORYCLIA [id number] [address] [place] Polychromasia LM Ql (Bld) Slight Normal [facility] Comment on above: Order Comment: Specimen Type: BLOOD SPEC IMENOrdering Facility: [facility] Address: [address] [place] [address] Performed By: #### 5 7021-8 ####[facility] LABORATORYCLIA [id number] [place] [address] [place] RBC (Bld) [#/Vol] 3.98 10*6/uL Normal 3.90-5.20 [facility] Comment on above: Order Comment: Specimen Type: BLOOD SPEC IMENOrdering Facility: [facility] Address: [address] [place] [address] Performed By: #### 5 7021-8 ####[facility] LABORATORYCLIA [id number] [address] [place] RED CELL MORPH Reviewed: see result s of individual morphologies Normal [facility] Comment on above: Order Comment: Specimen Type: BLOOD SPEC IMENOrdering Facility: [facility] Address: [address] [place] [address] Performed By: #### 5 7021-8 ####[facility] LABORATORYCLIA [id number] [address] [place] Target cells LM Ql (Bld) Few Normal [facility] Comment on above: Order Comment: Specimen Type: BLOOD SPEC IMENOrdering Facility: [facility] Address: [address] [place] [address] Performed By: #### 5 7021-8 ####[facility] LABORATORYCLIA [id number] [place] [address] [place] [facility] Variant lymphocytes/100 WBC (Bld) 1.0 % Normal [facility] Comment on above: Order Comment: Specimen Type: BLOOD SPEC IMENOrdering Facility: [facility] Address: [address] [place] [address] Performed By: #### 5 7021-8 ####[facility] LABORATORYCLIA [id number] [place] [address] [place] WBC (Bld) [#/Vol] 15.61 10*3/uL High 3.70-11.00 [facility] Comment on above: Order Comment: Specimen Type: BLOOD SPEC IMENOrdering Facility: [facility] Address: [address] [place] [address] Performed By: #### 5 7021-8 ####[facility] LABORATORYCLIA [id number] [place] [address] [facility] CNDSon 08-11-2023 CNDS HNO ID: [id number] Author: JOE GRANDA MD Service: General Surgery [...] Needs: - follow up with JAYSHREE HUFFMAN [employer] as listed below Labs AND Procedures Pending [...] Your Medications These medications were sent to [facility] [address] [place] [address] Hours: Thursday-Thursday: 7am-7pm, Sat: 9am-1pm acetaminophen 500 mg tablet enoxaparin 60 mg/0.6 mL Syrg ondansetron orally disintegrating 4 mg disintegrating tablet oxyCODONE IR 5 mg immediate release tablet pantoprazole DR 40 mg tablet Appointments for Next 60 Days Date Time Provider Location Dept Phone 08/17/2023 10:00 AM JAYSHREE HUFFMAN [phone] 08/19/2023 11:45 AM ALEX MONSIVAIS [phone] 08/31/2023 9:45 AM RUPINDER COLBERT [facility] [phone] 08/31/2023 10:30 AM CHRISTOPHER SANTIAGO [facility] [phone] 09/07/2023 1:30 PM JAYSHREE HUFFMAN [phone] Highest Readmission Risk Score: 11 The 30 [...] Resulted Calcium (more content not included)... Normal [facility] Magnesium SerPl-mCyumion 08-11 Magnesium [Mass/Vol] 2.0 mg/dL Normal 1.7-2.3 [facility] Comment on above: Order Comment: Specimen Type: BLOOD SPEC IMENOrdering Facility: [facility] Address: [address] [place] [address] [place] [address] Performed By: #### 1 9123-9, 2777-1, ####[facility] LABORATORYCLIA [id number] [place] [address] [place] NURSING PROGon 08-11-2023 NURSING PROG HNO ID: [id number] Author: KIRA VANCE, SUSAN Service: ? Author [...] contact provider if anything changes occur. Normal [facility] Phosphate SerPl-mCncon 08-11 Phosphate [Mass/Vol] 4.3 mg/dL Normal 2.7-4.8 [facility] Comment on above: Order Comment: Specimen Type: BLOOD SPEC IMENOrdering Facility: [facility] Address: [address] [place] [address] Performed By: #### 1 9123-9, 2777-1, ####[facility] LABORATORYCLIA [id number] [place] [address] [place] Basic metabolic 2000 panelon 08-10-2023 Anion gap [Moles/Vol] 12 mmol/L Normal 9-18 [facility] Comment on above: Order Comment: Specimen Type: BLOOD SPEC IMENOrdering Facility: [facility] Address: [address] [place] [address] Performed By: #### 1 9123-9, 15285-4, 277-1 ####[facility] LABORATORYCLIA [id number] [place] [address] [place] Calcium [Mass/Vol] 8.7 mg/dL Normal 8.5-10.2 [facility] Comment on above: Order Comment: Specimen Type: BLOOD SPEC IMENOrdering Facility: [facility] Address: [address] [place] [address] Performed By: #### 1 9123-9, 32410-5, 2776- ####[facility] LABORATORYCLIA [id number] [place] [address] [place] Chloride [Moles/Vol] 104 mmol/L Normal 97-105 [facility] Comment on above: Order Comment: Specimen Type: BLOOD SPEC IMENOrdering Facility: [facility] Address: [address] [place] [address] Performed By: #### 1 9123-9, 37606-2, 2776-06 ####[facility] LABORATORYCLIA [id number] [place] [address] [place] CO2 [Moles/Vol] 24 mmol/L Normal 22-30 [facility] Comment on above: Order Comment: Specimen Type: BLOOD SPEC IMENOrdering Facility: [facility] Address: [address] [place] [address] Performed By: #### 1 9123-9, 35574-9, 2776-06 ####[facility] LABORATORYCLIA [id number] [place] [address] [place] Creatinine [Mass/Vol] 0.65 mg/dL Normal 0.58-0.96 [facility] Comment on above: Order Comment: Specimen Type: BLOOD SPEC IMENOrdering Facility: [facility] Address: [address] [place] [address] Performed By: #### 1 9123-9, 21172-2, 2776-06 ####[facility] LABORATORYCLIA [id number] [place] [address] [place] Creatinine and Glomerular filtration rate.predicted panel (S/P/Bld) 116 mL/min/1.73m??? Normal >=60 [facility] Comment on above: Order Comment: Specimen Type: BLOOD SPEC IMENOrdering Facility: [facility] Address: [address] [place] [address] Result Comment: Janet mated Glomerular Filtration Rate [...] actual GFR. Performed By: #### 1 9123-9, 86502-5, 2776-06 ####[facility] LABORATORYCLIA [id number] [place] [address] [place] Glucose [Mass/Vol] 91 mg/dL Normal 74-99 [facility] Comment on above: Order Comment: Specimen Type: BLOOD SPEC IMENOrdering Facility: [facility] Address: [address] [place] [address] Result Comment: The [employer] Diabetes Association (ADA) provides guidance for cutoff [...] Standards of Medical Care in Diabetes 2016, [employer]. Diabetes Care. 2016.39(Suppl 1). Performed By: #### 1 9123-9, 35123-6, 2776-06 ####[facility]ORATORYCLIA [id number] [place] [address] [place] Potassium [Moles/Vol] 3.4 mmol/L Low 3.7-5.1 [facility] Comment on above: Order Comment: Specimen Type: BLOOD SPEC IMENOrdering Facility: [facility] Address: [address] [place] [address] Performed By: #### 1 9123-9, 28083-5, 2776- ####[facility] LABORATORYCLIA [id number] [place] [address] [place] Sodium [Moles/Vol] 140 mmol/L Normal 136-144 [facility] Comment on above: Order Comment: Specimen Type: BLOOD SPEC IMENOrdering Facility: [facility] Address: [address] [place] [address] Performed By: #### 1 9123-9, 55773-5, 2777-1 ####[facility] LABORATORYCLIA [id number] [place] [address] [place] Urea nitrogen [Mass/Vol] 3 mg/dL Low 7-21 [facility] Comment on above: Order Comment: Specimen Type: BLOOD SPEC IMENOrdering Facility: [facility] Address: [address] [place] [address] Performed By: #### 1 9123-9, 86599-1, 2777- ####[facility] LABORATORYCLIA [id number] [place] [address] [place] CBC W Auto Differential pane l (Bld)on 08-10-2023 Basophils (Bld) [#/Vol] 0.08 10*3/uL Normal <0.11 [facility] Comment on above: Order Comment: Specimen Type: BLOOD SPEC IMENOrdering Facility: [facility] Address: [address] [place] [address] Performed By: #### 5 7021-8 ####[facility] LABORATORYCLIA [id number] [address] [place] Basophils/100 WBC (Bld) 0.6 % Normal [facility] Comment on above: Order Comment: Specimen Type: BLOOD SPEC IMENOrdering Facility: [facility] Address: [address] [place] [address] Performed By: #### 5 7021-8 ####[facility] LABORATORYCLIA [id number] [address] [place] Differential cell count method Nom (Bld) Auto Normal [facility] Comment on above: Order Comment: Specimen Type: BLOOD SPEC IMENOrdering Facility: [facility] Address: [address] [place] [address] Performed By: #### 5 7021-8 ####[facility] LABORATORYCLIA [id number] [place] [address] [place] Eosinophils (Bld) [#/Vol] 0.78 10*3/uL High <0.46 [facility] Comment on above: Order Comment: Specimen Type: BLOOD SPEC IMENOrdering Facility: [facility] Address: [address] [place] [address] Performed By: #### 5 7021-8 ####[facility] LABORATORYCLIA [id number] [place] [address] [place] Eosinophils/100 WBC (Bld) 5.6 % Normal [facility] Comment on above: Order Comment: Specimen Type: BLOOD SPEC IMENOrdering Facility: [facility] Address: [address] [place] [address] Performed By: #### 5 7021-8 ####[facility] LABORATORYCLIA [id number] [place] [address] [place] Erythrocyte distribution width (RBC) [Ratio] 14.7 % Normal 11.5-15.0 [facility] Comment on above: Order Comment: Specimen Type: BLOOD SPEC IMENOrdering Facility: [facility] Address: [address] [place] [address] Performed By: #### 5 7021-8 ####[facility] LABORATORYCLIA [id number] [place] [address] [place] Hematocrit (Bld) [Volume fraction] 36.9 % Normal 36.0-46.0 [facility] Comment on above: Order Comment: Specimen Type: BLOOD SPEC IMENOrdering Facility: [facility] Address: [address] [place] [address] Performed By: #### 5 7021-8 ####[facility] LABORATORYCLIA [id number] [place] [address] [place] Hemoglobin (Bld) [Mass/Vol] 11.6 g/dL Normal 11.5-15.5 [facility] Comment on above: Order Comment: Specimen Type: BLOOD SPEC IMENOrdering Facility: [facility] Address: [address] [place] [address] Performed By: #### 5 7021-8 ####[facility] LABORATORYCLIA [id number] [place] [address] [place] Immature granulocytes (Bld) [#/Vol] 0.11 10*3/uL High <0.10 [facility] Comment on above: Order Comment: Specimen Type: BLOOD SPEC IMENOrdering Facility: [facility] Address: [address] [place] [address] Performed By: #### 5 7021-8 ####[facility] LABORATORYCLIA [id number] [address] Immature granulocytes/100 WBC (Bld) 0.8 % Normal [facility] Comment on above: Order Comment: Specimen Type: BLOOD SPEC IMENOrdering Facility: [facility] Address: [address] [place] [address] Performed By: #### 5 7021-8 ####[facility] LABORATORYCLIA [id number] [address] [place] Lymphocytes (Bld) [#/Vol] 4.03 10*3/uL High 1.00-4.00 [facility] Comment on above: Order Comment: Specimen Type: BLOOD SPEC IMENOrdering Facility: [facility] Address: [address] [place] [address] Performed By: #### 5 7021-8 ####[facility] LABORATORYCLIA [id number] [address] STATES [facility] Lymphocytes/100 WBC (Bld) 28.8 % Normal [facility] Comment on above: Order Comment: Specimen Type: BLOOD SPEC IMENOrdering Facility: [facility] Address: [address] [place] [address] Performed By: #### 5 7021-8 ####[facility] LABORATORYCLIA [id number] [place] [address] [place] MCH (RBC) [Entitic mass] 29.2 pg Normal 26.0-34.0 [facility] Comment on above: Order Comment: Specimen Type: BLOOD SPEC IMENOrdering Facility: [facility] Address: [address] [place] [address] Performed By: #### 5 7021-8 ####[facility] LABORATORYCLIA [id number] [place] [address] [place] MCHC (RBC) [Mass/Vol] 31.4 g/dL Normal 30.5-36.0 [facility] Comment on above: Order Comment: Specimen Type: BLOOD SPEC IMENOrdering Facility: [facility] Address: [address] [place] [address] Performed By: #### 5 7021-8 ####[facility] LABORATORYCLIA [id number] [place] [address] [place] MCV (RBC) [Entitic vol] 92.9 fL Normal 80.0-100.0 [facility] Comment on above: Order Comment: Specimen Type: BLOOD SPEC IMENOrdering Facility: [facility] Address: [address] [place] [address] Performed By: #### 5 7021-8 ####[facility] LABORATORYCLIA [id number] [place] [address] [place] Monocytes (Bld) [#/Vol] 1.33 10*3/uL High <0.87 [facility] Comment on above: Order Comment: Specimen Type: BLOOD SPEC IMENOrdering Facility: [facility] Address: [address] [place] [address] Performed By: #### 5 7021-8 ####[facility] LABORATORYCLIA [id number] [place] [address] [place] Monocytes/100 WBC (Bld) 9.5 % Normal [facility] Comment on above: Order Comment: Specimen Type: BLOOD SPEC IMENOrdering Facility: [facility] Address: [address] [place] [address] Performed By: #### 5 7021-8 ####[facility] LABORATORYCLIA [id number] [place] [address] [place] Neutrophils (Bld) [#/Vol] 7.66 10*3/uL High 1.45-7.50 [facility] Comment on above: Order Comment: Specimen Type: BLOOD SPEC IMENOrdering Facility: [facility] Address: [facility] [place] [address] Performed By: #### 5 7021-8 ####[facility] LABORATORYCLIA [id number] [place] [address] [place] Neutrophils/100 WBC (Bld) 54.7 % Normal [facility] Comment on above: Order Comment: Specimen Type: BLOOD SPEC IMENOrdering Facility: [facility] Address: [address] [place] [address] Performed By: #### 5 7021-8 ####[facility] LABORATORYCLIA [id number] [place] [address] [place] Nucleated RBC (Bld) [#/Vol] 0.03 10*3/uL High <0.01 [facility] Comment on above: Order Comment: Specimen Type: BLOOD SPEC IMENOrdering Facility: [facility] Address: [address] [place] [address] Performed By: #### 5 7021-8 ####[facility] LABORATORYCLIA [id number] [place] [address] [place] Nucleated RBC/100 WBC (Bld) [Ratio] 0.2 /100 WBC Normal [facility] Comment on above: Order Comment: Specimen Type: BLOOD SPEC IMENOrdering Facility: [facility] Address: [address] [place] [address] Performed By: #### 5 7021-8 ####[facility] LABORATORYCLIA [id number] [place] [address] [place] Platelet mean volume (Bld) [Entitic vol] 9.9 fL Normal 9.0-12.7 [facility] Comment on above: Order Comment: Specimen Type: BLOOD SPEC IMENOrdering Facility: [facility] Address: [address] [place] [address] Performed By: #### 5 7021-8 ####[facility] LABORATORYCLIA [id number] [place] [address] [place] [facility] [place] Platelets (Bld) [#/Vol] 557 10*3/uL High 150-400 [facility] Comment on above: Order Comment: Specimen Type: BLOOD SPEC IMENOrdering Facility: [facility] Address: [address] [place] [address] Performed By: #### 5 7021-8 ####[facility]ORATORYCLIA [id number] [place] [address] [place] RBC (Bld) [#/Vol] 3.97 10*6/uL Normal 3.90-5.20 [facility] Comment on above: Order Comment: Specimen Type: BLOOD SPEC IMENOrdering Facility: [facility] Address: [address] [place] [address] Performed By: #### 5 7021-8 ####[facility] LABORATORYCLIA [id number] [place] [address] [place] WBC (Bld) [#/Vol] 13.99 10*3/uL High 3.70-11.00 [facility] Comment on above: Order Comment: Specimen Type: BLOOD SPEC IMENOrdering Facility: [facility] Address: [address] [place] [address] Performed By: #### 5 7021-8 ####[facility] LABORATORYCLIA [id number] [place] [address] [facility] [place] Magnesium SerPl-mCncon 08-10 Magnesium [Mass/Vol] 1.8 mg/dL Normal 1.7-2.3 [facility] Comment on above: Order Comment: Specimen Type: BLOOD SPEC IMENOrdering Facility: [facility] Address: [address] [place] [address] Performed By: #### 1 9123-9, 33236-6, 2777-1 ####[facility] LABORATORYCLIA [id number] [place] [address] [place] NURSING PROGon 08-10-2023 NURSING PROG HNO ID: [id number] Author: SUDHA WELCH RN Service: ? Author [...] possible home today, continue to monitor. Normal [facility] Phosphate SerPl-mCncon 08-10 Phosphate [Mass/Vol] 4.2 mg/dL Normal 2.7-4.8 [facility] Comment on above: Order Comment: Specimen Type: BLOOD SPEC IMENOrdering Facility: [facility] Address: [address] [place] [address] Performed By: #### 1 9123-9, 60924-0, 2777-1 ####[facility] LABORATORYCLIA [id number] [place] [address] [place] Basic metabolic 2000 panelon 08-09-2023 Anion gap [Moles/Vol] 12 mmol/L Normal 9-18 [facility] Comment on above: Order Comment: Specimen Type: BLOOD SPEC IMENOrdering Facility: [facility] Address: [address] [place] [address] Performed By: #### 2 777-1, , 22399-5 ####[facility] LABORATORYCLIA [id number] [place] [address] [place] Calcium [Mass/Vol] 8.3 mg/dL Low 8.5-10.2 [facility] Comment on above: Order Comment: Specimen Type: BLOOD SPEC IMENOrdering Facility: [facility] Address: [address] [place] [address] Performed By: #### 2 777-1, , 16936-5 ####[facility] LABORATORYCLIA [id number] [place] [address] [place] Chloride [Moles/Vol] 103 mmol/L Normal 97-105 [facility] Comment on above: Order Comment: Specimen Type: BLOOD SPEC IMENOrdering Facility: [facility] Address: [address] [place] [address] Performed By: #### 2 777-1, , ####[facility] LABORATORYCLIA [id number] [place] [address] [place] CO2 [Moles/Vol] 22 mmol/L Normal 22-30 [facility] Comment on above: Order Comment: Specimen Type: BLOOD SPEC IMENOrdering Facility: [facility] Address: [address] [place] [address] Performed By: #### 2 777-1, , ####[facility] LABORATORYCLIA [id number] [place] [address] [place] Creatinine [Mass/Vol] 0.59 mg/dL Normal 0.58-0.96 [facility] Comment on above: Order Comment: Specimen Type: BLOOD SPEC IMENOrdering Facility: [facility] Address: [address] [place] [address] Performed By: #### 2 777-1, , ####[facility] LABORATORYCLIA [id number] [place] [address] [place] Creatinine and Glomerular filtration rate.predicted panel (S/P/Bld) 118 mL/min/1.73m??? Normal >=60 [facility] Comment on above: Order Comment: Specimen Type: BLOOD SPEC IMENOrdering Facility: [facility] Address: [address] [place] [address] Result Comment: Janet mated Glomerular Filtration Rate [...] GFR. Performed By: #### 2 777-1, , ####[facility] LABORATORYCLIA [id number] [place] [address] [place] Glucose [Mass/Vol] 98 mg/dL Normal 74-99 [facility] Comment on above: Order Comment: Specimen Type: BLOOD SPEC IMENOrdering Facility: [facility] Address: [address] [place] [address] Result Comment: The [employer] Diabetes Association (ADA) provides guidance for cutoff [...] Standards of Medical Care in Diabetes 2016, [place] [employer]. Diabetes Care. 2016.39(Suppl 1). Performed By: #### 2 777-1, , ####[facility] LABORATORYCLIA [id number] [place] [address] [place] Potassium [Moles/Vol] 3.5 mmol/L Low 3.7-5.1 [facility] Comment on above: Order Comment: Specimen Type: BLOOD SPEC IMENOrdering Facility: [facility] Address: [address] [place] [address] Performed By: #### 2 777-1, , ####[facility] LABORATORYCLIA [id number] [place] [address] [place] Sodium [Moles/Vol] 137 mmol/L Normal 136-144 [facility] Comment on above: Order Comment: Specimen Type: BLOOD SPEC IMENOrdering Facility: [facility] Address: [address] [place] [address] Performed By: #### 2 777-1, , ####[facility] LABORATORYCLIA [id number] [place] [address] [place] Urea nitrogen [Mass/Vol] 3 mg/dL Low 7-21 [facility] Comment on above: Order Comment: Specimen Type: BLOOD SPEC IMENOrdering Facility: [facility] Address: [address] [place] [address] Performed By: #### 2 777-1, 89309-9, 59063-0 ####[facility] LABORATORYCLIA [id number] [place] [address] [place] CBC W Auto Differential pane l (Bld)on 08-09-2023 Basophils (Bld) [#/Vol] 0.08 10*3/uL Normal <0.11 [facility] Comment on above: Order Comment: Specimen Type: BLOOD SPEC IMENOrdering Facility: [facility] Address: [address] [place] [address] Performed By: #### 5 7021-8 ####[facility] LABORATORYCLIA [id number] [place] [address] [place] Basophils/100 WBC (Bld) 0.6 % Normal [facility] Comment on above: Order Comment: Specimen Type: BLOOD SPEC IMENOrdering Facility: [facility] Address: [address] [place] [address] Performed By: #### 5 7021-8 ####[facility] LABORATORYCLIA [id number] [place] [address] [place] Differential cell count method Nom (Bld) Auto Normal [facility] Comment on above: Order Comment: Specimen Type: BLOOD SPEC IMENOrdering Facility: [facility] Address: [address] [place] [address] Performed By: #### 5 7021-8 ####[facility] LABORATORYCLIA [id number] [place] [address] [place] Eosinophils (Bld) [#/Vol] 0.78 10*3/uL High <0.46 [facility] Comment on above: Order Comment: Specimen Type: BLOOD SPEC IMENOrdering Facility: [facility] Address: [address] [place] [address] Performed By: #### 5 7021-8 ####[facility] LABORATORYCLIA [id number] [place] [address] [place] Eosinophils/100 WBC (Bld) 5.4 % Normal [facility] Comment on above: Order Comment: Specimen Type: BLOOD SPEC IMENOrdering Facility: [facility] Address: [address] [place] [address] Performed By: #### 5 7021-8 ####[facility] LABORATORYCLIA [id number] [place] [address] [place] Erythrocyte distribution width (RBC) [Ratio] 14.6 % Normal 11.5-15.0 [facility] Comment on above: Order Comment: Specimen Type: BLOOD SPEC IMENOrdering Facility: [facility] Address: [address] [place] [address] Performed By: #### 5 7021-8 ####GEORGE LABORATORYCLIA [id number] [place] [address] [place] Hematocrit (Bld) [Volume fraction] 37.6 % Normal 36.0-46.0 [facility] Comment on above: Order Comment: Specimen Type: BLOOD SPEC IMENOrdering Facility: [facility] Address: [address] [place] [address] Performed By: #### 5 7021-8 ####GEORGE LABORATORYCLIA [id number] [place] [address] [place] Hemoglobin (Bld) [Mass/Vol] 11.9 g/dL Normal 11.5-15.5 [facility] Comment on above: Order Comment: Specimen Type: BLOOD SPEC IMENOrdering Facility: [facility] Address: [address] [place] [address] Performed By: #### 5 7021-8 ####GEORGE LABORATORYCLIA [id number] [place] [address] [place] Immature granulocytes (Bld) [#/Vol] 0.08 10*3/uL Normal <0.10 [facility] Comment on above: Order Comment: Specimen Type: BLOOD SPEC IMENOrdering Facility: [facility] Address: [address] [place] [address] Performed By: #### 5 7021-8 ####GEORGE LABORATORYCLIA [id number] [place] [address] [place] Immature granulocytes/100 WBC (Bld) 0.6 % Normal [facility] Comment on above: Order Comment: Specimen Type: BLOOD SPEC IMENOrdering Facility: [facility] Address: [address] [place] [address] Performed By: #### 5 7021-8 ####GEORGE LABORATORYCLIA [id number] [place] [address] [place] Lymphocytes (Bld) [#/Vol] 3.71 10*3/uL Normal 1.00-4.00 [facility] Comment on above: Order Comment: Specimen Type: BLOOD SPEC IMENOrdering Facility: [facility] Address: [address] [place] [address] Performed By: #### 5 7021-8 ####GEORGE LABORATORYCLIA [id number] [place] [address] [place] Lymphocytes/100 WBC (Bld) 25.7 % Normal [facility] Comment on above: Order Comment: Specimen Type: BLOOD SPEC IMENOrdering Facility: [facility] Address: [address] [place] [address] Performed By: #### 5 7021-8 ####GEORGE LABORATORYCLIA [id number] [place] [address] [place] MCH (RBC) [Entitic mass] 29.5 pg Normal 26.0-34.0 [facility] Comment on above: Order Comment: Specimen Type: BLOOD SPEC IMENOrdering Facility: [facility] Address: [address] [place] [address] Performed By: #### 5 7021-8 ####[facility] LABORATORYCLIA [id number] [place] [address] [place] MCHC (RBC) [Mass/Vol] 31.6 g/dL Normal 30.5-36.0 [facility] Comment on above: Order Comment: Specimen Type: BLOOD SPEC IMENOrdering Facility: [facility] Address: [address] [place] [address] Performed By: #### 5 7021-8 ####GEORGE LABORATORYCLIA [id number] [place] [address] [place] MCV (RBC) [Entitic vol] 93.1 fL Normal 80.0-100.0 [facility] Comment on above: Order Comment: Specimen Type: BLOOD SPEC IMENOrdering Facility: [facility] Address: [address] [place] [address] Performed By: #### 5 7021-8 ####[facility] LABORATORYCLIA [id number] [place] [address] [place] Monocytes (Bld) [#/Vol] 1.36 10*3/uL High <0.87 [facility] Comment on above: Order Comment: Specimen Type: BLOOD SPEC IMENOrdering Facility: [facility] Address: [address] [place] [address] Performed By: #### 5 7021-8 ####[facility] LABORATORYCLIA [id number] [place] [address] [place] Monocytes/100 WBC (Bld) 9.4 % Normal [facility] Comment on above: Order Comment: Specimen Type: BLOOD SPEC IMENOrdering Facility: [facility] Address: [address] [place] [address] Performed By: #### 5 7021-8 ####[facility] LABORATORYCLIA [id number] [place] [address] [place] Neutrophils (Bld) [#/Vol] 8.44 10*3/uL High 1.45-7.50 [facility] Comment on above: Order Comment: Specimen Type: BLOOD SPEC IMENOrdering Facility: [facility] Address: [address] [place] [address] Performed By: #### 5 7021-8 ####[facility] LABORATORYCLIA [id number] [place] [address] [place] Neutrophils/100 WBC (Bld) 58.3 % Normal [facility] Comment on above: Order Comment: Specimen Type: BLOOD SPEC IMENOrdering Facility: [facility] Address: [address] [place] [address] Performed By: #### 5 7021-8 ####[facility] LABORATORYCLIA [id number] [place] [address] [place] Nucleated RBC (Bld) [#/Vol] 0.03 10*3/uL High <0.01 [facility] Comment on above: Order Comment: Specimen Type: BLOOD SPEC IMENOrdering Facility: [facility] Address: [address] [place] [address] Performed By: #### 5 7021-8 ####[facility] LABORATORYCLIA [id number] [place] [address] [place] Nucleated RBC/100 WBC (Bld) [Ratio] 0.2 /100 WBC Normal [facility] Comment on above: Order Comment: Specimen Type: BLOOD SPEC IMENOrdering Facility: [facility] Address: [address] [place] [address] Performed By: #### 5 7021-8 ####[facility] LABORATORYCLIA [id number] [place] [address] [place] Platelet mean volume (Bld) [Entitic vol] 9.5 fL Normal 9.0-12.7 [facility] Comment on above: Order Comment: Specimen Type: BLOOD SPEC IMENOrdering Facility: [facility] Address: [address] [place] [address] Performed By: #### 5 7021-8 ####[facility] LABORATORYCLIA [id number] [place] [address] [place] Platelets (Bld) [#/Vol] 499 10*3/uL High 150-400 [facility] Comment on above: Order Comment: Specimen Type: BLOOD SPEC IMENOrdering Facility: [facility] Address: [address] [place] [address] Performed By: #### 5 7021-8 ####[facility] LABORATORYCLIA [id number] [place] [address] [place] RBC (Bld) [#/Vol] 4.04 10*6/uL Normal 3.90-5.20 [facility] Comment on above: Order Comment: Specimen Type: BLOOD SPEC IMENOrdering Facility: [facility] Address: [address] [address] Performed By: #### 5 7021-8 ####[facility] LABORATORYCLIA [id number] [address] WBC (Bld) [#/Vol] 14.45 10*3/uL High 3.70-11.00 [facility] Comment on above: Order Comment: Specimen Type: BLOOD SPEC IMENOrdering Facility: [facility] Address: [address] [place] [address] Performed By: #### 5 7021-8 ####[facility] LABORATORYCLIA [id number] [address] CONSULT PROGon 08-09-2023 CONSULT PROG HNO ID: [id number] Author: BUCKY FLORES APRN.SAW CLEANER Service: Pain Management Author Type: Nurse Practitioner [...] Please call with questions. SIGNATURE: Bucky Flores APRN.SAW CLEANER PAGER:[phone] DATE of SERVICE: August 09, 2023 TIME of SERVICE: 2:20 PM Normal [facility] Magnesium SerPl-mCncon 08-09 Magnesium [Mass/Vol] 1.8 mg/dL Normal 1.7-2.3 [facility] Comment on above: Order Comment: Specimen Type: BLOOD SPEC IMENOrdering Facility: [facility] Address: [address] [place] [address] Performed By: #### 2 777-1, , ####GEORGE LABORATORYCLIA [id number] [address] [place] NURSING PROGon 08-09-2023 NURSING PROG HNO ID: [id number] Author: KIRA VANCE RN Service: ? Author [...] LIP. Pt is ambulating in hallway. Normal [facility] Phosphate SerPl-ncon 08-09 Phosphate [Mass/Vol] 3.2 mg/dL Normal 2.7-4.8 [facility] Comment on above: Order Comment: Specimen Type: BLOOD SPEC IMENOrdering Facility: [facility] Address: [address] [place] [address] Performed By: #### 2 777-1, , ####GEORGE LABORATORYCLIA [id number] [place] [address] [facility] [place] Basic metabolic 2000 panelon 08-08-2023 Anion gap [Moles/Vol] 12 mmol/L Normal 9-18 [facility] Comment on above: Order Comment: Specimen Type: BLOOD SPEC IMENOrdering Facility: [facility] Address: [address] [place] [address] Performed By: #### 2 777-1, , ####GEORGE LABORATORYCLIA [id number] [place] [address] [place] Calcium [Mass/Vol] 8.6 mg/dL Normal 8.5-10.2 [facility] Comment on above: Order Comment: Specimen Type: BLOOD SPEC IMENOrdering Facility: [facility] Address: [address] [place] [address] Performed By: #### 2 777-1, , ####GEORGE LABORATORYCLIA [id number] [place] [address] [place] Chloride [Moles/Vol] 105 mmol/L Normal 97-105 [facility] Comment on above: Order Comment: Specimen Type: BLOOD SPEC IMENOrdering Facility: [facility] Address: [address] [place] [address] Performed By: #### 2 777-1, , ####GEORGE LABORATORYCLIA [id number] [place] [address] [place] CO2 [Moles/Vol] 21 mmol/L Low 22-30 [facility] Comment on above: Order Comment: Specimen Type: BLOOD SPEC IMENOrdering Facility: [facility] Address: [address] [place] [address] Performed By: #### 2 777-1, , ####GEORGE LABORATORYCLIA [id number] [place] [address] [place] Creatinine [Mass/Vol] 0.58 mg/dL Normal 0.58-0.96 [facility] Comment on above: Order Comment: Specimen Type: BLOOD SPEC IMENOrdering Facility: [facility] Address: [address] [facility] [place] [address] Performed By: #### 2 777-1, , ####GEORGE LABORATORYCLIA [id number] [place] [address] [place] Creatinine and Glomerular filtration rate.predicted panel (S/P/Bld) 119 mL/min/1.73m??? Normal >=60 [facility] Comment on above: Order Comment: Specimen Type: BLOOD SPEC IMENOrdering Facility: [facility] Address: [address] [place] [address] Result Comment: Janet mated Glomerular Filtration Rate [...] actual GFR. Performed By: #### 2 777-1, 32997-6, 91455-1 ####GEORGE LABORATORYCLIA [id number] [place] [address] [place] Glucose [Mass/Vol] 97 mg/dL Normal 74-99 [facility] Comment on above: Order Comment: Specimen Type: BLOOD SPEC IMENOrdering Facility: [facility] Address: [address] [place] [address] Result Comment: The [employer] Diabetes Association (ADA) provides guidance for cutoff [...] Standards of Medical Care in Diabetes 2016, [employer]. Diabetes Care. 2016.39(Suppl 1). Performed By: #### 2 777-1, 74030-6, 00447-8 ####GEORGE LABORATORYCLIA [id number] [place] [address] [place] Potassium [Moles/Vol] 3.9 mmol/L Normal 3.7-5.1 [facility] Comment on above: Order Comment: Specimen Type: BLOOD SPEC IMENOrdering Facility: [facility] Address: [address] [place] [address] Performed By: #### 2 777-1, , ####[facility] LABORATORYCLIA [id number] [place] [address] [place] Sodium [Moles/Vol] 138 mmol/L Normal 136-144 [facility] Comment on above: Order Comment: Specimen Type: BLOOD SPEC IMENOrdering Facility: [facility] Address: [address] [place] [address] Performed By: #### 2 777-1, , ####[facility] LABORATORYCLIA [id number] [place] [address] [place] Urea nitrogen [Mass/Vol] 3 mg/dL Low 7-21 [facility] Comment on above: Order Comment: Specimen Type: BLOOD SPEC IMENOrdering Facility: [facility] Address: [address] [place] [address] Performed By: #### 2 777-1, , ####[facility] LABORATORYCLIA [id number] [place] [address] [place] CBC W Auto Differential pane l (Bld)on 08-08-2023 Basophils (Bld) [#/Vol] 0.08 10*3/uL Normal <0.11 [facility] Comment on above: Order Comment: Specimen Type: BLOOD SPEC IMENOrdering Facility: [facility] Address: [address] [place] [address] Performed By: #### 5 7021-8 ####[facility] LABORATORYCLIA [id number] [place] [address] [place] Basophils/100 WBC (Bld) 0.5 % Normal [facility] Comment on above: Order Comment: Specimen Type: BLOOD SPEC IMENOrdering Facility: [facility] Address: [address] [place], [place] [address] Performed By: #### 5 7021-8 ####[facility] LABORATORYCLIA [id number] [place] [address] [place] Differential cell count method Nom (Bld) Auto Normal [facility] Comment on above: Order Comment: Specimen Type: BLOOD SPEC IMENOrdering Facility: [facility] Address: [address] [place] [address] Performed By: #### 5 7021-8 ####[facility] LABORATORYCLIA [id number] [place] [address] [place] Eosinophils (Bld) [#/Vol] 0.70 10*3/uL High <0.46 [facility] Comment on above: Order Comment: Specimen Type: BLOOD SPEC IMENOrdering Facility: [facility] Address: [address] [place] [address] Performed By: #### 5 7021-8 ####GEORGE LABORATORYCLIA [id number] [place] [address] [place] Eosinophils/100 WBC (Bld) 4.7 % Normal [facility] Comment on above: Order Comment: Specimen Type: BLOOD SPEC IMENOrdering Facility: [facility] Address: [address] [place] [address] Performed By: #### 5 7021-8 ####GEORGE LABORATORYCLIA [id number] [address] [place] Erythrocyte distribution width (RBC) [Ratio] 14.2 % Normal 11.5-15.0 [facility] Comment on above: Order Comment: Specimen Type: BLOOD SPEC IMENOrdering Facility: [facility] Address: [address] [place] [address] Performed By: #### 5 7021-8 ####[facility] LABORATORYCLIA [id number] [address] [place] Hematocrit (Bld) [Volume fraction] 35.7 % Low 36.0-46.0 [facility] Comment on above: Order Comment: Specimen Type: BLOOD SPEC IMENOrdering Facility: [facility] Address: [address] [place] [address] Performed By: #### 5 7021-8 ####[facility] LABORATORYCLIA [id number] [place] [address] [place] Hemoglobin (Bld) [Mass/Vol] 11.4 g/dL Low 11.5-15.5 [facility] Comment on above: Order Comment: Specimen Type: BLOOD SPEC IMENOrdering Facility: [facility] Address: [address] [place] [address] Performed By: #### 5 7021-8 ####[facility] LABORATORYCLIA [id number] [place] [address] [place] Immature granulocytes (Bld) [#/Vol] 0.06 10*3/uL Normal <0.10 [facility] Comment on above: Order Comment: Specimen Type: BLOOD SPEC IMENOrdering Facility: [facility] Address: [address] [place] [address] Performed By: #### 5 7021-8 ####[facility] LABORATORYCLIA [id number] [place] [address] [place] Immature granulocytes/100 WBC (Bld) 0.4 % Normal [facility] Comment on above: Order Comment: Specimen Type: BLOOD SPEC IMENOrdering Facility: [facility] Address: [address] [place] [address] Performed By: #### 5 7021-8 ####GEORGE LABORATORYCLIA [id number] [place] [address] [place] Lymphocytes (Bld) [#/Vol] 3.44 10*3/uL Normal 1.00-4.00 [facility] Comment on above: Order Comment: Specimen Type: BLOOD SPEC IMENOrdering Facility: [facility] Address: [address] [place] [address] Performed By: #### 5 7021-8 ####[facility] LABORATORYCLIA [id number] [place] [address] [place] Lymphocytes/100 WBC (Bld) 22.9 % Normal [facility] Comment on above: Order Comment: Specimen Type: BLOOD SPEC IMENOrdering Facility: [facility] Address: [address] [place] [address] Performed By: #### 5 7021-8 ####GEORGE LABORATORYCLIA [id number] [address] MCH (RBC) [Entitic mass] 29.6 pg Normal 26.0-34.0 [facility] Comment on above: Order Comment: Specimen Type: BLOOD SPEC IMENOrdering Facility: [facility] Address: [address] [place] [address] Performed By: #### 5 7021-8 ####[facility] LABORATORYCLIA [id number] [address] [place] MCHC (RBC) [Mass/Vol] 31.9 g/dL Normal 30.5-36.0 [facility] Comment on above: Order Comment: Specimen Type: BLOOD SPEC IMENOrdering Facility: [facility] Address: [address] [place] [address] Performed By: #### 5 7021-8 ####GEORGE LABORATORYCLIA [id number] [address] [place] MCV (RBC) [Entitic vol] 92.7 fL Normal 80.0-100.0 [facility] Comment on above: Order Comment: Specimen Type: BLOOD SPEC IMENOrdering Facility: [facility] Address: [address] [place] [address] Performed By: #### 5 7021-8 ####GEORGE LABORATORYCLIA [id number] [address] [place] Monocytes (Bld) [#/Vol] 1.42 10*3/uL High <0.87 [facility] Comment on above: Order Comment: Specimen Type: BLOOD SPEC IMENOrdering Facility: [facility] Address: [address] [place] [address] Performed By: #### 5 7021-8 ####[facility] LABORATORYCLIA [id number] [address] [place] Monocytes/100 WBC (Bld) 9.4 % Normal [facility] Comment on above: Order Comment: Specimen Type: BLOOD SPEC IMENOrdering Facility: [facility] Address: [facility] [place] [address] Performed By: #### 5 7021-8 ####GEORGE LABORATORYCLIA [id number] [place] [address] [place] Neutrophils (Bld) [#/Vol] 9.33 10*3/uL High 1.45-7.50 [facility] Comment on above: Order Comment: Specimen Type: BLOOD SPEC IMENOrdering Facility: [facility] Address: [address] [place] [address] Performed By: #### 5 7021-8 ####GEORGE LABORATORYCLIA [id number] [place] [address] [place] Neutrophils/100 WBC (Bld) 62.1 % Normal [facility] Comment on above: Order Comment: Specimen Type: BLOOD SPEC IMENOrdering Facility: [facility] Address: [address] [place] [address] Performed By: #### 5 7021-8 ####GEOR[facility] LABORATORYCLIA [id number] [place] [address] [place] Nucleated RBC (Bld) [#/Vol] 10*3/uL Normal <0.01 [facility] Comment on above: Order Comment: Specimen Type: BLOOD SPEC IMENOrdering Facility: [facility] Address: [address] [place] [address] Performed By: #### 5 7021-8 ####GEOR[facility] LABORATORYCLIA [id number] [place] [address] [place] Nucleated RBC/100 WBC (Bld) [Ratio] 0.0 /100 WBC Normal [facility] Comment on above: Order Comment: Specimen Type: BLOOD SPEC IMENOrdering Facility: [facility] Address: [address] [place] [address] Performed By: #### 5 7021-8 ####GEOR[facility] LABORATORYCLIA [id number] [place] [address] [place] Platelet mean volume (Bld) [Entitic vol] 9.8 fL Normal 9.0-12.7 [facility] Comment on above: Order Comment: Specimen Type: BLOOD SPEC IMENOrdering Facility: [facility] Address: [address] [place] [address] Performed By: #### 5 7021-8 ####[facility] LABORATORYCLIA [id number] [place] [address] [place] Platelets (Bld) [#/Vol] 457 10*3/uL High 150-400 [facility] Comment on above: Order Comment: Specimen Type: BLOOD SPEC IMENOrdering Facility: [facility] Address: [address] [place] [address] Performed By: #### 5 7021-8 ####[facility] LABORATORYCLIA [id number] [place] [address] [place] RBC (Bld) [#/Vol] 3.85 10*6/uL Low 3.90-5.20 [facility] Comment on above: Order Comment: Specimen Type: BLOOD SPEC IMENOrdering Facility: [facility] Address: [address] [place] [address] Performed By: #### 5 7021-8 ####[facility] LABORATORYCLIA [id number] [place] [address] [place] WBC (Bld) [#/Vol] 15.03 10*3/uL High 3.70-11.00 [facility] Comment on above: Order Comment: Specimen Type: BLOOD SPEC IMENOrdering Facility: [facility] Address: [address] [place] [address] Performed By: #### 5 7021-8 ####[facility] LABORATORYCLIA [id number] [place] [address] [facility] [place] CONSULT PROGon 08-08-2023 CONSULT PROG HNO ID: [id number] Author: AUGUSTUS HERRERA PA-C Service: Pain Management Author Type: Physician Tobacco Stripper Hand Type: Consult Progress Note Filed: 08/08/2023 10:26 [...] PERTINENT ROS: ALLERGIES ALLERGIES Allergen Reactions Adhes. 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 Patient Demand Bolus: 4 mL. Lockout interval: 15 minutes. Patient received 6/ doses in the last 4 hours. Additional medication(s) given: See below Anticoagulation therapy: Heparin 5000 units TID Last Dose given: 08/08 536 Allergy: ALLERGIES Allergen Reactions Adhes. Cbwc-Fvxh-Ej* Rash Adhesive Tape-Silic* Rash Augmentin [Amoxicil* Diarrhea [...] (CYMBALTA) 60 mg ORAL DAILY phenol 1 Caney (CHLORASEPTIC) 1 Caney MUCOUS MEMBRANE (TOPICAL MOUTH AND THROAT) q 2 H PRN cetirizine 10 mg tab(s) (ZYRTEC) 10 mg ORAL DAILY acetaminophen 1,000 mg tab(s) (TYLENOL) 1,000 mg ORAL q 6 H fentaNYL 50 mcg/mL 25 mcg injection (SUBLI (more content not included)... Normal [facility] Magnesium [Mass/Vol] 1.8 mg/dL Normal 1.7-2.3 [facility] Comment on above: Order Comment: Specimen Type: BLOOD SPEC IMENOrdering Facility: [facility] Address: [address] [place] [address] Performed By: #### 2 777-1, , ####[facility] LABORATORYCLIA [id number] [address] [place] NURSING PROGon 08-08-2023 NURSING PROG HNO ID: [id number] Author: KIRA VANCE, RN Service: ? Author Type: Registered Nurse Type: Nursing Progress Note Filed: 08/08/2023 09:15 Note Text: Nursing Progress Note: Pt AANDO x 3. Abdomen is soft and tender. Upper transverse incision open to air with glue. Epidural infusing per MAR. Lungs diminished on RA. SR on tele. Pt up with 1 assist. Pt tolerating phase II bariatric diet. Normal [facility] Phosphate [facility] 08-08 Phosphate [Mass/Vol] 3.2 mg/dL Normal 2.7-4.8 [facility] Comment on above: Order Comment: Specimen Type: BLOOD SPEC IMENOrdering Facility: [facility] Address: [address] [place] [address] Performed By: #### 2 777-1, , ####[facility] LABORATORYCLIA [id number] [place] [id number] [place] Urinalysis complete panel (U )on 08-08-2023 Bacteria LM.HPF (Urine sed) [#/Area] Rare Abnormal None Seen [facility] Comment on above: Order Comment: Specimen Type: URINE SPEC IMENOrdering Facility: [facility] Address: [address] [place] [address] Performed By: #### 2 4356-8 ####[facility] LABORATORYCLIA [id number] [address] LABCLIA [id number] [place] [address] [place] Bilirubin Ql (U) Negative Normal Negative [facility] Comment on above: Order Comment: Specimen Type: URINE SPEC IMENOrdering Facility: [facility] Address: [address] [place] [address] Performed By: #### 2 4356-8 ####[facility] LABORATORYCLIA [id number] [address] LABCLIA [id number] [address] [place] Clarity (Unsp spec) Turbid Abnormal Clear [facility] Comment on above: Order Comment: Specimen Type: URINE SPEC IMENOrdering Facility: [facility] Address: [address] [place] [address] Performed By: #### 2 4356-8 ####[facility] LABORATORYCLIA [id number] [address] LABCLIA [id number] [address] [place] Color (U) Light [place] Abnormal Yellow [facility] Comment on above: Order Comment: Specimen Type: URINE SPEC IMENOrdering Facility: [facility] Address: [address] [place] [address] Performed By: #### 2 4356-8 ####[facility] LABORATORYCLIA [id number] [place] [address] [facility] LABCLIA [id number] [place] [address] [place] Epithelial cells LM.HPF (Urine sed) [#/Area] Moderate Normal [facility] Comment on above: Order Comment: Specimen Type: URINE SPEC IMENOrdering Facility: [facility] Address: [address] [place] [address] Performed By: #### 2 4356-8 ####[facility] LABORATORYCLIA [id number] [address] LABCLIA [id number] [address] Glucose Test strip (U) [Mass/Vol] Negative Normal Trace, Negative [facility] Comment on above: Order Comment: Specimen Type: URINE SPEC IMENOrdering Facility: [facility] Address: [address] [place] [address] Performed By: #### 2 4356-8 ####[facility] LABORATORYCLIA [id number] [address] LABCLIA [id number] [address] [place] Hemoglobin Ql (U) 3+ Abnormal Negative, Trace [facility] Comment on above: Order Comment: Specimen Type: URINE SPEC IMENOrdering Facility: [facility] Address: [address] [place] [address] Performed By: #### 2 4356-8 ####[facility] LABORATORYCLIA [id number] [address] LABCLIA [id number] [address] [place] Ketones Ql (U) 2+ Abnormal Negative, Trace [facility] Comment on above: Order Comment: Specimen Type: URINE SPEC IMENOrdering Facility: [facility] Address: [address] [place] [address] Performed By: #### 2 4356-8 ####[facility] LABORATORYCLIA [id number] [address] LABCLIA [id number] [address] Leukocyte esterase Test strip Ql (U) 250 Ko/uL Abnormal Negative, 25 Ko/uL [facility] Comment on above: Order Comment: Specimen Type: URINE SPEC IMENOrdering Facility: [facility] Address: [address] [place] [address] Performed By: #### 2 4356-8 ####[facility] LABORATORYCLIA [id number] [address] LABCLIA [id number] [place] [address] [place] Nitrite Ql (U) Negative Normal Negative [facility] Comment on above: Order Comment: Specimen Type: URINE SPEC IMENOrdering Facility: [facility] Address: [address] [place] [address] Performed By: #### 2 4356-8 ####[facility]ORATORYCLIA [id number] [address] LABCLIA [id number] [place] [address] [place] pH (U) 6.0 [pH] Normal 5.0-8.0 [facility] Comment on above: Order Comment: Specimen Type: URINE SPEC IMENOrdering Facility: [facility] Address: [address] [place] [address] Performed By: #### 2 4356-8 ####[facility] LABORATORYCLIA [id number] [address] LABCLIA [id number] [place] [address] [place] Protein (U) [Mass/Vol] 1+ Abnormal Trace, Negative [facility] Comment on above: Order Comment: Specimen Type: URINE SPEC IMENOrdering Facility: [facility] Address: [address] [place] [address] Performed By: #### 2 4356-8 ####[facility] LABORATORYCLIA [id number] [address] LABCLIA [id number] [place] [address] [place] RBC LM.HPF (Urine sed) [#/Area] /[HPF] Abnormal 0-3 /HPF [facility] Comment on above: Order Comment: Specimen Type: URINE SPEC IMENOrdering Facility: [facility] Address: [address] [place] [address] Performed By: #### 2 4356-8 ####[facility] LABORATORYCLIA [id number] [address] LABCLIA [id number] [place] [address] [place] Specific gravity (U) [Rel density] 1.011 Normal 1.005-1.03 0 [facility] Comment on above: Order Comment: Specimen Type: URINE SPEC IMENOrdering Facility: [facility] Address: [address] [place] [address] Performed By: #### 2 4356-8 ####[facility] LABORATORYCLIA [id number] [address] LABCLIA [id number] [address] [place] Urobilinogen Ql (U) Normal Normal Normal [facility] Comment on above: Order Comment: Specimen Type: URINE SPEC IMENOrdering Facility: [facility] Address: [address] [place] [address] Performed By: #### 2 4356-8 ####[facility] LABORATORYCLIA [id number] [address] LABCLIA [id number] [address] [place] WBC LM.HPF (Urine sed) [#/Area] /[HPF] Abnormal 0-5 /HPF [facility] Comment on above: Order Comment: Specimen Type: URINE SPEC IMENOrdering Facility: [facility] Address: [address] [place] [address] Performed By: #### 2 4356-8 ####[facility] LABORATORYCLIA [id number] [place] [address] [facility] LABCLIA [id number] [address] [place] Urinalysis complete pnl Uron 08-08-2023 Urinalysis complete panel (U) COLOR: Light [place] CLARITY: Turbid GLUCOSE, URINE: Negative BILIRUBIN, URINE: Negative KETONES, URINE: 2+ SPECIFIC GRAVITY, UR: 1.011 HEMOGLOBIN/BLOOD, UR: 3+ PH, URINE: 6.0 PROTEIN, URINE: 1+ UROBILINOGEN: Normal NITRITES: Negative LEUKEST: 250 Ko/uL WBC, URINE: >25 /HPF RBC, URINE: >25 /HPF BACTERIA: Rare SQUAMOUS EPITHELIAL CELLS: Moderate ORGANISM ID: 1 50,000-<100,000 CFU/ml Mixed microbiota No further workup Normal [facility] Comment on above: Order Comment: Specimen Type: URINE SPEC IMENOrdering Facility: [facility] Address: [address] [place] [address] Performed By: #### 2 4356-8 ####[facility] LABORATORYCLIA [id number] [place] [address] [facility] LABCLIA [id number] [place] [address] [place] Basic metabolic 2000 panelon 08-07-2023 Anion gap [Moles/Vol] 12 mmol/L Normal 9-18 [facility] Comment on above: Order Comment: Specimen Type: BLOOD SPEC IMENOrdering Facility: [facility] Address: [address] [place] [address] Performed By: #### 1 9123-9, 50182-4, 2777-1 ####[facility] LABORATORYCLIA [id number] [place] [address] [place] Calcium [Mass/Vol] 8.4 mg/dL Low 8.5-10.2 [facility] Comment on above: Order Comment: Specimen Type: BLOOD SPEC IMENOrdering Facility: [facility] Address: [address] [place] [address] Performed By: #### 1 9123-9, 13783-8, 277- ####[facility] LABORATORYCLIA [id number] [place] [address] [place] Chloride [Moles/Vol] 105 mmol/L Normal 97-105 [facility] Comment on above: Order Comment: Specimen Type: BLOOD SPEC IMENOrdering Facility: [facility] Address: [address] [place] [address] Performed By: #### 1 9123-9, 05657-4, 2776- ####[facility] LABORATORYCLIA [id number] [place] [address] [place] CO2 [Moles/Vol] 22 mmol/L Normal 22-30 [facility] Comment on above: Order Comment: Specimen Type: BLOOD SPEC IMENOrdering Facility: [facility] Address: [address] [place] [address] Performed By: #### 1 9123-9, 55429-8, 2776- ####[facility] LABORATORYCLIA [id number] [place] [address] [place] Creatinine [Mass/Vol] 0.61 mg/dL Normal 0.58-0.96 [facility] Comment on above: Order Comment: Specimen Type: BLOOD SPEC IMENOrdering Facility: [facility] Address: [address] [place] [address] Performed By: #### 1 9123-9, 51934-8, 2776- ####[facility] LABORATORYCLIA [id number] [place] [address] [facility] Creatinine and Glomerular filtration rate.predicted panel (S/P/Bld) 118 mL/min/1.73m??? Normal >=60 [facility] Comment on above: Order Comment: Specimen Type: BLOOD SPEC IMENOrdering Facility: [facility] Address: [address] [place] [address] Result Comment: Janet mated Glomerular Filtration Rate [...] actual GFR. Performed By: #### 1 9123-9, 11721-4, 2776-06 ####[facility] LABORATORYCLIA [id number] [place] [address] [place] Glucose [Mass/Vol] 99 mg/dL Normal 74-99 [facility] Comment on above: Order Comment: Specimen Type: BLOOD SPEC IMENOrdering Facility: [facility] Address: [address] [place] [address] Result Comment: The [employer] Diabetes Association (ADA) provides guidance for cutoff [...] Standards of Medical Care in Diabetes 2016, [employer]. Diabetes Care. 2016.39(Suppl 1). Performed By: #### 1 9123-9, 13439-1, 2776-06 ####[facility] LABORATORYCLIA [id number] [place] [address] [place] Potassium [Moles/Vol] 3.7 mmol/L Normal 3.7-5.1 [facility] Comment on above: Order Comment: Specimen Type: BLOOD SPEC IMENOrdering Facility: [facility] Address: [address] [place] [address] Performed By: #### 1 9123-9, 17229-9, 2776-06 ####[facility] LABORATORYCLIA [id number] [place] [address] [place] Sodium [Moles/Vol] 139 mmol/L Normal 136-144 [facility] Comment on above: Order Comment: Specimen Type: BLOOD SPEC IMENOrdering Facility: [facility] Address: [address] [place] [address] Performed By: #### 1 9123-9, 13628-0, 2777-1 ####[facility] LABORATORYCLIA [id number] [address] Urea nitrogen [Mass/Vol] 3 mg/dL Low 7-21 [facility] Comment on above: Order Comment: Specimen Type: BLOOD SPEC IMENOrdering Facility: [facility] Address: [address] [place] [address] Performed By: #### 1 9123-9, 26694-1, 2777 ####[facility] LABORATORYCLIA [id number] [address] CASE MANAGEMon 08-07-2023 CASE MANAGEM HNO ID: [id number] Author: ARTUR DIAMOND RN Service: ? Author Type: Registered Nurse Type: Care Mgt Progress Note Filed: 08/07/2023 09:33 Note Text: CARE MANAGEMENT WEEKEND PLANNING NOTE POSSIBLE DISCHARGE Date/Time: TBD Disposition: home w/ family support Transport: Car per pt arrangement Other Concerns: S/p Biliopancreatic diversion w/ duodenal switch. Await return of bowel function. On Phase 1 diet. Anticipate no skilled needs at [facility]. Weekend Park Guard Pager #: Peyman Pizano [phone] SIGNATURE: Artur Diamond RN PATIENT NAME: Susi Jeanenship DATE: August 07, 2023 TIME: 9:29 AM PAGER/CONTACT #: [phone] Normal [facility] CBC W Auto Differential pane l (Bld)on 08-07-2023 Basophils (Bld) [#/Vol] 0.49 10*3/uL High <0.11 [facility] Comment on above: Order Comment: Specimen Type: BLOOD SPEC IMENOrdering Facility: [facility] Address: [address] [place] [address] Performed By: #### 5 7021-8 ####[facility] LABORATORYCLIA [id number] [place] [address] [place] Basophils/100 WBC (Bld) 3.0 % Normal [facility] Comment on above: Order Comment: Specimen Type: BLOOD SPEC IMENOrdering Facility: [facility] Address: [address] [place] [address] Performed By: #### 5 7021-8 ####[facility] LABORATORYCLIA [id number] [place] [address] [facility] [place] Differential cell count method Nom (Bld) Manual Normal [facility] Comment on above: Order Comment: Specimen Type: BLOOD SPEC IMENOrdering Facility: [facility] Address: [address] [place] [address] Performed By: #### 5 7021-8 ####[facility] LABORATORYCLIA [id number] [place] [address] [place] Eosinophils (Bld) [#/Vol] 0.00 10*3/uL Normal <0.46 [facility] Comment on above: Order Comment: Specimen Type: BLOOD SPEC IMENOrdering Facility: [facility] Address: [address] [place] [address] Performed By: #### 5 7021-8 ####[facility] LABORATORYCLIA [id number] [address] [place] Eosinophils/100 WBC (Bld) 0.0 % Normal [facility] Comment on above: Order Comment: Specimen Type: BLOOD SPEC IMENOrdering Facility: [facility] Address: [address] [place] [address] Performed By: #### 5 7021-8 ####[facility] LABORATORYCLIA [id number] [place] [address] [place] Erythrocyte distribution width (RBC) [Ratio] 14.2 % Normal 11.5-15.0 [facility] Comment on above: Order Comment: Specimen Type: BLOOD SPEC IMENOrdering Facility: [facility] Address: [address] [place] [address] Performed By: #### 5 7021-8 ####[facility] LABORATORYCLIA [id number] [address] [place] Hematocrit (Bld) [Volume fraction] 37.7 % Normal 36.0-46.0 [facility] Comment on above: Order Comment: Specimen Type: BLOOD SPEC IMENOrdering Facility: [facility] Address: [address] [place] [address] Performed By: #### 5 7021-8 ####[facility] LABORATORYCLIA [id number] [place] [address] [place] Hemoglobin (Bld) [Mass/Vol] 11.8 g/dL Normal 11.5-15.5 [facility] Comment on above: Order Comment: Specimen Type: BLOOD SPEC IMENOrdering Facility: [facility] Address: [address] [place] [address] Performed By: #### 5 7021-8 ####[facility] LABORATORYCLIA [id number] [place] [address] [place] Lymphocytes (Bld) [#/Vol] 4.43 10*3/uL High 1.00-4.00 [facility] Comment on above: Order Comment: Specimen Type: BLOOD SPEC IMENOrdering Facility: [facility] Address: [address] [place] [address] Performed By: #### 5 7021-8 ####[facility] LABORATORYCLIA [id number] [address] [place] Lymphocytes/100 WBC (Bld) 27.0 % Normal [facility] Comment on above: Order Comment: Specimen Type: BLOOD SPEC IMENOrdering Facility: [facility] Address: [address] [place] [address] Performed By: #### 5 7021-8 ####[facility] LABORATORYCLIA [id number] [place] [address] [place] MCH (RBC) [Entitic mass] 29.4 pg Normal 26.0-34.0 [facility] Comment on above: Order Comment: Specimen Type: BLOOD SPEC IMENOrdering Facility: [facility] Address: [address] [place] [address] Performed By: #### 5 7021-8 ####[facility] LABORATORYCLIA [id number] [place] [address] [place] MCHC (RBC) [Mass/Vol] 31.3 g/dL Normal 30.5-36.0 [facility] Comment on above: Order Comment: Specimen Type: BLOOD SPEC IMENOrdering Facility: [facility] Address: [address] [place] [address] Performed By: #### 5 7021-8 ####[facility] LABORATORYCLIA [id number] [place] [address] [place] MCV (RBC) [Entitic vol] 94.0 fL Normal 80.0-100.0 [facility] Comment on above: Order Comment: Specimen Type: BLOOD SPEC IMENOrdering Facility: [facility] Address: [address] [place] [address] Performed By: #### 5 7021-8 ####[facility] LABORATORYCLIA [id number] [place] [address] [place] Monocytes (Bld) [#/Vol] 1.48 10*3/uL High <0.87 [facility] Comment on above: Order Comment: Specimen Type: BLOOD SPEC IMENOrdering Facility: [facility] Address: [address] [place] [address] Performed By: #### 5 7021-8 ####[facility] LABORATORYCLIA [id number] [place] [address] [place] Monocytes/100 WBC (Bld) 9.0 % Normal [facility] Comment on above: Order Comment: Specimen Type: BLOOD SPEC IMENOrdering Facility: [facility] Address: [address] [place] [address] Performed By: #### 5 7021-8 ####[facility] LABORATORYCLIA [id number] [place] [address] [place] Neutrophils (Bld) [#/Vol] 10.00 10*3/uL High 1.45-7.50 [facility] Comment on above: Order Comment: Specimen Type: BLOOD SPEC IMENOrdering Facility: [facility] Address: [address] [place] [address] Performed By: #### 5 7021-8 ####[facility] LABORATORYCLIA [id number] [place] [address] [place] Neutrophils/100 WBC (Bld) 61.0 % Normal [facility] Comment on above: Order Comment: Specimen Type: BLOOD SPEC IMENOrdering Facility: [facility] Address: [address] [place] [address] Performed By: #### 5 7021-8 ####[facility] LABORATORYCLIA [id number] [place] [address] [place] Nucleated RBC (Bld) [#/Vol] 10*3/uL Normal <0.01 [facility] Comment on above: Order Comment: Specimen Type: BLOOD SPEC IMENOrdering Facility: [facility] Address: [address] [place] [address] Performed By: #### 5 7021-8 ####[facility] LABORATORYCLIA [id number] [place] [address] [place] Nucleated RBC/100 WBC (Bld) [Ratio] 0.0 /100 WBC Normal [facility] Comment on above: Order Comment: Specimen Type: BLOOD SPEC IMENOrdering Facility: [facility] Address: [address] [place] [address] Performed By: #### 5 7021-8 ####[facility] LABORATORYCLIA [id number] [place] [address] [place] Platelet mean volume (Bld) [Entitic vol] 9.3 fL Normal 9.0-12.7 [facility] Comment on above: Order Comment: Specimen Type: BLOOD SPEC IMENOrdering Facility: [facility] Address: [address] [place] [address] Performed By: #### 5 7021-8 ####[facility] LABORATORYCLIA [id number] [place] [address] [place] Platelets (Bld) [#/Vol] 409 10*3/uL High 150-400 [facility] Comment on above: Order Comment: Specimen Type: BLOOD SPEC IMENOrdering Facility: [facility] Address: [address] [place] [address] Performed By: #### 5 7021-8 ####[facility] LABORATORYCLIA [id number] [place] [address] [place] Platelets Estimate (Bld) [#/Vol] Increased Normal [facility] Comment on above: Order Comment: Specimen Type: BLOOD SPEC IMENOrdering Facility: [facility] Address: [address] [place] [address] Performed By: #### 5 7021-8 ####[facility] LABORATORYCLIA [id number] [place] [address] [place] RBC (Bld) [#/Vol] 4.01 10*6/uL Normal 3.90-5.20 [facility] Comment on above: Order Comment: Specimen Type: BLOOD SPEC IMENOrdering Facility: [facility] Address: [address] [place] [address] Performed By: #### 5 7021-8 ####[facility] LABORATORYCLIA [id number] [address] [place] CELL MORPH Reviewed: unremarkable Normal [facility] Comment on above: Order Comment: Specimen Type: BLOOD SPEC IMENOrdering Facility: [facility] Address: [address] [place] [address] Performed By: #### 5 7021-8 ####[facility] LABORATORYCLIA [id number] [place] [address] [facility] [place] WBC (Bld) [#/Vol] 16.39 10*3/uL High 3.70-11.00 [facility] Comment on above: Order Comment: Specimen Type: BLOOD SPEC IMENOrdering Facility: [facility] Address: [address] [place] [address] Performed By: #### 5 7021-8 ####[facility] LABORATORYCLIA [id number] [place] [address] [facility] [place] CONSULT PROGon 08-07-2023 CONSULT PROG HNO ID: [id number] Author: BUCKY FLORES APRN.[employer] Service: Pain Management Author Type: Nurse Practitioner [...] OBJECTIVE PERTINENT ROS: ALLERGIES Allergen Reactions Adhes. Mmqd-Pjac-Bq* Rash Adhesive Tape-Silic* Rash Augmentin [Amoxicil* Diarrhea [...] Day of surgery MEDICATIONS: Epidural Medications and ASSOCIATE PROFESSOR OF GEOGRAPHY Settings Bupivacaine 0.0625% + Fentanyl 2 mcg/mL [...] (CYMBALTA) 60 mg ORAL DAILY phenol 1 Caney (CHLORASEPTIC) 1 Caney MUCOUS MEMBRANE (TOPICAL MOUTH AND THROAT) q [...] INTRAVENOUS CON (more content not included)... Normal [facility] Magnesium SerPl-mCncon 08-07 Magnesium [Mass/Vol] 1.9 mg/dL Normal 1.7-2.3 [facility] Comment on above: Order Comment: Specimen Type: BLOOD SPEC IMENOrdering Facility: [facility] Address: [address] [place] [address] Performed By: #### 1 9123-9, 42072-7, 2777-1 ####[facility] LABORATORYCLIA [id number] [place] [address] [place] Phosphate SerPl-mCncon 08-07 Phosphate [Mass/Vol] 2.3 mg/dL Low 2.7-4.8 [facility] Comment on above: Order Comment: Specimen Type: BLOOD SPEC IMENOrdering Facility: [facility] Address: [address] [place] [address] Performed By: #### 1 9123-9, 55465-0, 2777-1 ####[facility] LABORATORYCLIA [id number] [place] [address] [place] Basic metabolic 2000 panelon 08-06-2023 Anion gap [Moles/Vol] 12 mmol/L Normal 9-18 [facility] Comment on above: Order Comment: Specimen Type: BLOOD SPEC IMENOrdering Facility: [facility] Address: [address] [place] [address] Performed By: #### 2 4321-2, , 2776-06 ####[facility] LABORATORYCLIA [id number] [place] [address] [place] Calcium [Mass/Vol] 8.0 mg/dL Low 8.5-10.2 [facility] Comment on above: Order Comment: Specimen Type: BLOOD SPEC IMENOrdering Facility: [facility] Address: [address] [place] [address] Performed By: #### 2 4321-2, , 2776-06 ####[facility] LABORATORYCLIA [id number] [place] [address] [place] Chloride [Moles/Vol] 106 mmol/L High 97-105 [facility] Comment on above: Order Comment: Specimen Type: BLOOD SPEC IMENOrdering Facility: [facility] Address: [address] [place] [address] Performed By: #### 2 4321-2, , 2776-06 ####[facility] LABORATORYCLIA [id number] [place] [address] [place] CO2 [Moles/Vol] 23 mmol/L Normal 22-30 [facility] Comment on above: Order Comment: Specimen Type: BLOOD SPEC IMENOrdering Facility: [facility] Address: [address] [place] [address] Performed By: #### 2 4321-2, , 2776-06 ####[facility] LABORATORYCLIA [id number] [place] [address] [place] Creatinine [Mass/Vol] 0.69 mg/dL Normal 0.58-0.96 [facility] Comment on above: Order Comment: Specimen Type: BLOOD SPEC IMENOrdering Facility: [facility] Address: [address] [place] [address] Performed By: #### 2 4321-2, , 2776-06 ####[facility] LABORATORYCLIA [id number] [place] [address] [place] Creatinine and Glomerular filtration rate.predicted panel (S/P/Bld) 114 mL/min/1.73m??? Normal >=60 [facility] Comment on above: Order Comment: Specimen Type: BLOOD SPEC IMENOrdering Facility: [facility] Address: [address] [place] [address] Result Comment: Janet mated Glomerular Filtration Rate [...] actual GFR. Performed By: #### 2 4321-2, 29982-7, 2776-06 ####[facility] LABORATORYCLIA [id number] [place] [address] [place] Glucose [Mass/Vol] 83 mg/dL Normal 74-99 [facility] Comment on above: Order Comment: Specimen Type: BLOOD SPEC IMENOrdering Facility: [facility] Address: [address] [place] [address] Result Comment: The [place] Diabetes [employer] (ADA) provides guidance for cutoff [...] Standards of Medical Care in Diabetes 2016, [employer]. Diabetes Care. 2016.39(Suppl 1). Performed By: #### 2 4321-2, 93879-2, 2776-06 ####[facility] LABORATORYCLIA [id number] [place] [id number] [place] Potassium [Moles/Vol] 3.8 mmol/L Normal 3.7-5.1 [facility] Comment on above: Order Comment: Specimen Type: BLOOD SPEC IMENOrdering Facility: [facility] Address: [address] [place] [address] Performed By: #### 2 4321-2, , 2776-06 ####GEORGE LABORATORYCLIA [id number] [place] [address] [place] Sodium [Moles/Vol] 141 mmol/L Normal 136-144 [facility] Comment on above: Order Comment: Specimen Type: BLOOD SPEC IMENOrdering Facility: [facility] Address: [address] [place] [address] Performed By: #### 2 4321-2, , 2776-06 ####GEORGE LABORATORYCLIA [id number] [place] [address] [place] Urea nitrogen [Mass/Vol] 5 mg/dL Low 7-21 [facility] Comment on above: Order Comment: Specimen Type: BLOOD SPEC IMENOrdering Facility: [facility] Address: [address] [place] [address] Performed By: #### 2 432-2, , 2776-06 ####GEORGE LABORATORYCLIA [id number] [place] [address] [place] CBC W Auto Differential pane l (Bld)on 08-06-2023 Basophils (Bld) [#/Vol] 0.37 10*3/uL High <0.11 [facility] Comment on above: Order Comment: Specimen Type: BLOOD SPEC IMENOrdering Facility: [facility] Address: [address] [place] [address] Performed By: #### 5 7021-8 ####GEORGE LABORATORYCLIA [id number] [place] [address] [place] Basophils/100 WBC (Bld) 2.0 % Normal [facility] Comment on above: Order Comment: Specimen Type: BLOOD SPEC IMENOrdering Facility: [facility] Address: [address] [facility] [place] [address] Performed By: #### 5 7021-8 ####GEORGE LABORATORYCLIA [id number] [address] [place] Differential cell count method Nom (Bld) Manual Normal [facility] Comment on above: Order Comment: Specimen Type: BLOOD SPEC IMENOrdering Facility: [facility] Address: [address] [place] [address] Performed By: #### 5 7021-8 ####GEORGE LABORATORYCLIA [id number] [place] [address] [place] Eosinophils (Bld) [#/Vol] 0.74 10*3/uL High <0.46 [facility] Comment on above: Order Comment: Specimen Type: BLOOD SPEC IMENOrdering Facility: [facility] Address: [address] [place] [address] Performed By: #### 5 7021-8 ####[facility] LABORATORYCLIA [id number] [address] [place] Eosinophils/100 WBC (Bld) 4.0 % Normal [facility] Comment on above: Order Comment: Specimen Type: BLOOD SPEC IMENOrdering Facility: [facility] Address: [address] [place] [address] Performed By: #### 5 7021-8 ####[facility] LABORATORYCLIA [id number] [address] [place] Erythrocyte distribution width (RBC) [Ratio] 14.6 % Normal 11.5-15.0 [facility] Comment on above: Order Comment: Specimen Type: BLOOD SPEC IMENOrdering Facility: [facility] Address: [address] [place] [address] Performed By: #### 5 7021-8 ####GEORGE LABORATORYCLIA [id number] [address] [place] Hematocrit (Bld) [Volume fraction] 38.0 % Normal 36.0-46.0 [facility] Comment on above: Order Comment: Specimen Type: BLOOD SPEC IMENOrdering Facility: [facility] Address: [address] [place] [address] Performed By: #### 5 7021-8 ####GEORGE LABORATORYCLIA [id number] [place] [address] [place] Hemoglobin (Bld) [Mass/Vol] 11.7 g/dL Normal 11.5-15.5 [facility] Comment on above: Order Comment: Specimen Type: BLOOD SPEC IMENOrdering Facility: [facility] Address: [address] [place] [address] Performed By: #### 5 7021-8 ####[facility] LABORATORYCLIA [id number] [place] [address] [place] Lymphocytes (Bld) [#/Vol] 4.05 10*3/uL High 1.00-4.00 [facility] Comment on above: Order Comment: Specimen Type: BLOOD SPEC IMENOrdering Facility: [facility] Address: [address] [place] [address] Performed By: #### 5 7021-8 ####[facility] LABORATORYCLIA [id number] [place] [address] [place] Lymphocytes/100 WBC (Bld) 22.0 % Normal [facility] Comment on above: Order Comment: Specimen Type: BLOOD SPEC IMENOrdering Facility: [facility] Address: [address] [place] [address] Performed By: #### 5 7021-8 ####[facility] LABORATORYCLIA [id number] [place] [address] [place] MCH (RBC) [Entitic mass] 29.5 pg Normal 26.0-34.0 [facility] Comment on above: Order Comment: Specimen Type: BLOOD SPEC IMENOrdering Facility: [facility] Address: [address] [place] [address] Performed By: #### 5 7021-8 ####[facility] LABORATORYCLIA [id number] [place] [address] [place] MCHC (RBC) [Mass/Vol] 30.8 g/dL Normal 30.5-36.0 [facility] Comment on above: Order Comment: Specimen Type: BLOOD SPEC IMENOrdering Facility: [facility] Address: [address] [place] [address] Performed By: #### 5 7021-8 ####GEORGE LABORATORYCLIA [id number] [place] [address] [place] MCV (RBC) [Entitic vol] 96.0 fL Normal 80.0-100.0 [facility] Comment on above: Order Comment: Specimen Type: BLOOD SPEC IMENOrdering Facility: [facility] Address: [address] [place] [address] Performed By: #### 5 7021-8 ####[facility] LABORATORYCLIA [id number] [place] [address] [place] Monocytes (Bld) [#/Vol] 1.84 10*3/uL High <0.87 [facility] Comment on above: Order Comment: Specimen Type: BLOOD SPEC IMENOrdering Facility: [facility] Address: [address] [place] [address] Performed By: #### 5 7021-8 ####[facility] LABORATORYCLIA [id number] [place] [address] [place] Monocytes/100 WBC (Bld) 10.0 % Normal [facility] Comment on above: Order Comment: Specimen Type: BLOOD SPEC IMENOrdering Facility: [facility] Address: [address] [place] [address] Performed By: #### 5 7021-8 ####GEORGE LABORATORYCLIA [id number] [place] [address] [place] Neutrophils (Bld) [#/Vol] 11.42 10*3/uL High 1.45-7.50 [facility] Comment on above: Order Comment: Specimen Type: BLOOD SPEC IMENOrdering Facility: [facility] Address: [address] [place] [address] Performed By: #### 5 7021-8 ####[facility] LABORATORYCLIA [id number] [place] [address] [place] Neutrophils/100 WBC (Bld) 62.0 % Normal [facility] Comment on above: Order Comment: Specimen Type: BLOOD SPEC IMENOrdering Facility: [facility] Address: [address] [place] [address] Performed By: #### 5 7021-8 ####[facility] LABORATORYCLIA [id number] [place] [address] [place] Nucleated RBC (Bld) [#/Vol] 10*3/uL Normal <0.01 [facility] Comment on above: Order Comment: Specimen Type: BLOOD SPEC IMENOrdering Facility: [facility] Address: [address] [place] [address] Performed By: #### 5 7021-8 ####[facility] LABORATORYCLIA [id number] [place] [address] [place] Nucleated RBC/100 WBC (Bld) [Ratio] 0.0 /100 WBC Normal [facility] Comment on above: Order Comment: Specimen Type: BLOOD SPEC IMENOrdering Facility: [facility] Address: [address] [place] [address] Performed By: #### 5 7021-8 ####[facility] LABORATORYCLIA [id number] [place] [address] [place] Platelet mean volume (Bld) [Entitic vol] 9.4 fL Normal 9.0-12.7 [facility] Comment on above: Order Comment: Specimen Type: BLOOD SPEC IMENOrdering Facility: [facility] Address: [address] [place] [address] Performed By: #### 5 7021-8 ####[facility] LABORATORYCLIA [id number] [place] [address] [place] Platelets (Bld) [#/Vol] 415 10*3/uL High 150-400 [facility] Comment on above: Order Comment: Specimen Type: BLOOD SPEC IMENOrdering Facility: [facility] Address: [address] [place] [address] Performed By: #### 5 7021-8 ####[facility] LABORATORYCLIA [id number] [place] [address] [place] Platelets Estimate (Bld) [#/Vol] Increased Normal [facility] Comment on above: Order Comment: Specimen Type: BLOOD SPEC IMENOrdering Facility: [facility] Address: [address] [place] [address] Performed By: #### 5 7021-8 ####[facility] LABORATORYCLIA [id number] [place] [address] [place] RBC (Bld) [#/Vol] 3.96 10*6/uL Normal 3.90-5.20 [facility] Comment on above: Order Comment: Specimen Type: BLOOD SPEC IMENOrdering Facility: [facility] Address: [address] [place] [address] Performed By: #### 5 7021-8 ####[facility] LABORATORYCLIA [id number] [place] [address] [place] RED CELL MORPH Reviewed: unremarkable Normal [facility] Comment on above: Order Comment: Specimen Type: BLOOD SPEC IMENOrdering Facility: [facility] Address: [address] [place] [address] Performed By: #### 5 7021-8 ####[facility] LABORATORYCLIA [id number] [place] [address] [place] WBC (Bld) [#/Vol] 18.42 10*3/uL High 3.70-11.00 [facility] Comment on above: Order Comment: Specimen Type: BLOOD SPEC IMENOrdering Facility: [facility] Address: [address] [place] [address] Performed By: #### 5 7021-8 ####[facility] LABORATORYCLIA [id number] [place] [address] [facility] CONSULT PROGon 08-06-2023 CONSULT PROG HNO ID: [id number] Author: BUCKY FLORES APRN.[employer] Service: Pain Management Author Type: Nurse Practitioner [...] OBJECTIVE PERTINENT ROS: ALLERGIES Allergen Reactions Adhes. Szqc-Mvlp-Gx* Rash Adhesive Tape-Silic* Rash Augmentin [Amoxicil* Diarrhea [...] Day of surgery MEDICATIONS: Epidural Medications and ASSOCIATE PROFESSOR OF GEOGRAPHY Settings Bupivacaine 0.0625% + Fentanyl 2 mcg/mL [...] (CYMBALTA) 60 mg ORAL DAILY phenol 1 Caney (CHLORASEPTIC) 1 Caney MUCOUS MEMBRANE (TOPICAL MOUTH AND THROAT) q [...] senna-docusate 8.6-50 (more content not included)... Normal [facility] Magnesium [facility] Magnesium [Mass/Vol] 2.0 mg/dL Normal 1.7-2.3 [facility] Comment on above: Order Comment: Specimen Type: BLOOD SPEC IMENOrdering Facility: [facility] Address: [address] [place] [address] Performed By: #### 2 4321-2, 25921-0, 2777- ####GEORGE LABORATORYCLIA [id number] [place] [address] [place] NURSING PROGon 08-06-2023 NURSING PROG HNO ID: [id number] Author: BUCKY JOSHI RN Service: Nursing Author Type: Registered Nurse Type: Nursing Progress Note Filed: 08/06/2023 18:19 Note Text: Other: 1410: Pt ambulated POD with standby assist. HR 150-170s at this time, returned to normal at rest. Josee MARTINEZ on unit and aware. Normal [facility] Phosphate [facility] 08[facility]06 Phosphate [Mass/Vol] 3.0 mg/dL Normal 2.7-4.8 [facility] Comment on above: Order Comment: Specimen Type: BLOOD SPEC IMENOrdering Facility: [facility] Address: [address] [place] [address] Performed By: #### 2 4321-2, 99734-1, 277- ####GEORGE LABORATORYCLIA [id number] [place] [address] [place] Basic metabolic 2000 panelon 08-05-2023 Anion gap [Moles/Vol] 10 mmol/L Normal 9-18 [facility] Comment on above: Order Comment: Specimen Type: BLOOD SPEC IMENOrdering Facility: [facility] Address: [address] [place] [address] Performed By: #### 2 4321-2, HSTNT ####[facility] LABORATORYCLIA [id number] [place] [address] [place] Calcium [Mass/Vol] 7.8 mg/dL Low 8.5-10.2 [facility] Comment on above: Order Comment: Specimen Type: BLOOD SPEC IMENOrdering Facility: [facility] Address: [address] [place] [address] Performed By: #### 2 4321-2, HSTNT ####[facility] LABORATORYCLIA [id number] [place] [address] [place] Chloride [Moles/Vol] 105 mmol/L Normal 97-105 [facility] Comment on above: Order Comment: Specimen Type: BLOOD SPEC IMENOrdering Facility: [facility] Address: [address] [place] [address] Performed By: #### 2 4321-2, HSTNT ####[facility] LABORATORYCLIA [id number] [place] [address] [place] CO2 [Moles/Vol] 24 mmol/L Normal 22-30 [facility] Comment on above: Order Comment: Specimen Type: BLOOD SPEC IMENOrdering Facility: [facility] Address: [address] [place] [address] Performed By: #### 2 4321-2, HSTNT ####[facility] LABORATORYCLIA [id number] [place] [address] [place] Creatinine [Mass/Vol] 0.77 mg/dL Normal 0.58-0.96 [facility] Comment on above: Order Comment: Specimen Type: BLOOD SPEC IMENOrdering Facility: [facility] Address: [address] [place] [address] Performed By: #### 2 4321-2, HSTNT ####[facility] LABORATORYCLIA [id number] [place] [address] [place] Creatinine and Glomerular filtration rate.predicted panel (S/P/Bld) 101 mL/min/1.73m??? Normal >=60 [facility] Comment on above: Order Comment: Specimen Type: BLOOD SPEC IMENOrdering Facility: [facility] Address: [address] [place] [address] Result Comment: Janet mated Glomerular Filtration Rate [...] GFR. Performed By: #### 2 4321-2, HSTNT ####[facility] LABORATORYCLIA [id number] [place] [address] [place] Glucose [Mass/Vol] 93 mg/dL Normal 74-99 [facility] Comment on above: Order Comment: Specimen Type: BLOOD SPEC IMENOrdering Facility: [facility] Address: [address] [place] [address] Result Comment: The [employer] Diabetes Association (ADA) provides guidance for cutoff [...] Standards of Medical Care in Diabetes 2016, [employer]. Diabetes Care. 2016.39(Suppl 1). Performed By: #### 2 4321-2, HSTNT ####[facility] LABORATORYCLIA [id number] [place] [address] [place] Potassium [Moles/Vol] 3.4 mmol/L Low 3.7-5.1 [facility] Comment on above: Order Comment: Specimen Type: BLOOD SPEC IMENOrdering Facility: [facility] Address: [address] [place] [address] Performed By: #### 2 4321-2, HSTNT ####GEORGE LABORATORYCLIA [id number] [place] [address] [place] Sodium [Moles/Vol] 139 mmol/L Normal 136-144 [facility] Comment on above: Order Comment: Specimen Type: BLOOD SPEC IMENOrdering Facility: [facility] Address: [address] [place] [address] Performed By: #### 2 4321-2, HSTNT ####GEORGE LABORATORYCLIA [id number] [place] [address] [place] Urea nitrogen [Mass/Vol] 7 mg/dL Normal 7-21 [facility] Comment on above: Order Comment: Specimen Type: BLOOD SPEC IMENOrdering Facility: [facility] Address: [address] [place] [address] Performed By: #### 2 4321-2, HSTNT ####GEORGE LABORATORYCLIA [id number] [place] [address] [place] CBC W Auto Differential pane l (Bld)on 08-05-2023 Basophils (Bld) [#/Vol] 0.15 10*3/uL High <0.11 [facility] Comment on above: Order Comment: Specimen Type: BLOOD SPEC IMENOrdering Facility: [facility] Address: [address] [place] [address] Performed By: #### 5 7021-8 ####GEORGE LABORATORYCLIA [id number] [place] [address] [place] Basophils/100 WBC (Bld) 1.0 % Normal [facility] Comment on above: Order Comment: Specimen Type: BLOOD SPEC IMENOrdering Facility: [facility] Address: [address] [place] [address] Performed By: #### 5 7021-8 ####GEORGE LABORATORYCLIA [id number] [place] [address] [place] Differential cell count method Nom (Bld) Manual Normal [facility] Comment on above: Order Comment: Specimen Type: BLOOD SPEC IMENOrdering Facility: [facility] Address: [address] [place], [place] [address] Performed By: #### 5 7021-8 ####[facility] LABORATORYCLIA [id number] [place] [address] [place] Eosinophils (Bld) [#/Vol] 0.15 10*3/uL Normal <0.46 [facility] Comment on above: Order Comment: Specimen Type: BLOOD SPEC IMENOrdering Facility: [facility] Address: [address] [place] [address] Performed By: #### 5 7021-8 ####GEORGE LABORATORYCLIA [id number] [place] [address] [place] Eosinophils/100 WBC (Bld) 1.0 % Normal [facility] Comment on above: Order Comment: Specimen Type: BLOOD SPEC IMENOrdering Facility: [facility] Address: [address] [place] [address] Performed By: #### 5 7021-8 ####GEORGE LABORATORYCLIA [id number] [place] [address] [place] Erythrocyte distribution width (RBC) [Ratio] 14.6 % Normal 11.5-15.0 [facility] Comment on above: Order Comment: Specimen Type: BLOOD SPEC IMENOrdering Facility: [facility] Address: [address] [place] [address] Performed By: #### 5 7021-8 ####GEORGE LABORATORYCLIA [id number] [place] [address] [place] Hematocrit (Bld) [Volume fraction] 38.5 % Normal 36.0-46.0 [facility] Comment on above: Order Comment: Specimen Type: BLOOD SPEC IMENOrdering Facility: [facility] Address: [address] [place] [address] Performed By: #### 5 7021-8 ####GEORGE LABORATORYCLIA [id number] [place] [address] [place] Hemoglobin (Bld) [Mass/Vol] 11.9 g/dL Normal 11.5-15.5 [facility] Comment on above: Order Comment: Specimen Type: BLOOD SPEC IMENOrdering Facility: [facility] Address: [address] [place] [address] Performed By: #### 5 7021-8 ####[facility] LABORATORYCLIA [id number] [place] [address] [place] Lymphocytes (Bld) [#/Vol] 2.79 10*3/uL Normal 1.00-4.00 [facility] Comment on above: Order Comment: Specimen Type: BLOOD SPEC IMENOrdering Facility: [facility] Address: [address] [place] [address] Performed By: #### 5 7021-8 ####[facility] LABORATORYCLIA [id number] [address] Lymphocytes/100 WBC (Bld) 19.0 % Normal [facility] Comment on above: Order Comment: Specimen Type: BLOOD SPEC IMENOrdering Facility: [facility] Address: [address] [place] [address] Performed By: #### 5 7021-8 ####[facility] LABORATORYCLIA [id number] [address] [place] MCH (RBC) [Entitic mass] 29.2 pg Normal 26.0-34.0 [facility] Comment on above: Order Comment: Specimen Type: BLOOD SPEC IMENOrdering Facility: [facility] Address: [address] [place] [address] Performed By: #### 5 7021-8 ####[facility] LABORATORYCLIA [id number] [address] [place] MCHC (RBC) [Mass/Vol] 30.9 g/dL Normal 30.5-36.0 [facility] Comment on above: Order Comment: Specimen Type: BLOOD SPEC IMENOrdering Facility: [facility] Address: [address] [place] [address] Performed By: #### 5 7021-8 ####[facility] LABORATORYCLIA [id number] [address] [place] MCV (RBC) [Entitic vol] 94.6 fL Normal 80.0-100.0 [facility] Comment on above: Order Comment: Specimen Type: BLOOD SPEC IMENOrdering Facility: [facility] Address: [address] [place] [address] Performed By: #### 5 7021-8 ####[facility] LABORATORYCLIA [id number] [place] [address] [place] Monocytes (Bld) [#/Vol] 0.59 10*3/uL Normal <0.87 [facility] Comment on above: Order Comment: Specimen Type: BLOOD SPEC IMENOrdering Facility: [facility] Address: [address] [place] [address] Performed By: #### 5 7021-8 ####[facility] LABORATORYCLIA [id number] [place] [address] [place] Monocytes/100 WBC (Bld) 4.0 % Normal [facility] Comment on above: Order Comment: Specimen Type: BLOOD SPEC IMENOrdering Facility: [facility] Address: [address] [place] [address] Performed By: #### 5 7021-8 ####[facility] LABORATORYCLIA [id number] [place] [address] [place] Neutrophils (Bld) [#/Vol] 11.00 10*3/uL High 1.45-7.50 [facility] Comment on above: Order Comment: Specimen Type: BLOOD SPEC IMENOrdering Facility: [facility] Address: [address] [place] [address] Performed By: #### 5 7021-8 ####[facility] LABORATORYCLIA [id number] [place] [address] [place] Neutrophils/100 WBC (Bld) 75.0 % Normal [facility] Comment on above: Order Comment: Specimen Type: BLOOD SPEC IMENOrdering Facility: [facility] Address: [address] [place] [address] Performed By: #### 5 7021-8 ####[facility] LABORATORYCLIA [id number] [place] [address] [place] Nucleated RBC (Bld) [#/Vol] 10*3/uL Normal <0.01 [facility] Comment on above: Order Comment: Specimen Type: BLOOD SPEC IMENOrdering Facility: [facility] Address: [facility] [place] [address] Performed By: #### 5 7021-8 ####GEOR[facility] LABORATORYCLIA [id number] [place] [address] [place] Nucleated RBC/100 WBC (Bld) [Ratio] 0.0 /100 WBC Normal [facility] Comment on above: Order Comment: Specimen Type: BLOOD SPEC IMENOrdering Facility: [facility] Address: [address] [place] [address] Performed By: #### 5 7021-8 ####[facility] LABORATORYCLIA [id number] [place] [address] [place] Platelet mean volume (Bld) [Entitic vol] 9.2 fL Normal 9.0-12.7 [facility] Comment on above: Order Comment: Specimen Type: BLOOD SPEC IMENOrdering Facility: [facility] Address: [address] [place] [address] Performed By: #### 5 7021-8 ####[facility] LABORATORYCLIA [id number] [place] [address] [place] Platelets (Bld) [#/Vol] 431 10*3/uL High 150-400 [facility] Comment on above: Order Comment: Specimen Type: BLOOD SPEC IMENOrdering Facility: [facility] Address: [address] [place] [address] Performed By: #### 5 7021-8 ####GEOR[facility] LABORATORYCLIA [id number] [place] [address] [place] Platelets Estimate (Bld) [#/Vol] Increased Normal [facility] Comment on above: Order Comment: Specimen Type: BLOOD SPEC IMENOrdering Facility: [facility] Address: [address] [place] [address] Performed By: #### 5 7021-8 ####[facility] LABORATORYCLIA [id number] [address] RBC (Bld) [#/Vol] 4.07 10*6/uL Normal 3.90-5.20 [facility] Comment on above: Order Comment: Specimen Type: BLOOD SPEC IMENOrdering Facility: [facility] Address: [address] [place] [address] Performed By: #### 5 7021-8 ####[facility] LABORATORYCLIA [id number] [address] RED CELL MORPH Reviewed: unremarkable Normal [facility] Comment on above: Order Comment: Specimen Type: BLOOD SPEC IMENOrdering Facility: [facility] Address: [address] [place] [address] Performed By: #### 5 7021-8 ####[facility] LABORATORYCLIA [id number] [address] WBC (Bld) [#/Vol] 14.67 10*3/uL High 3.70-11.00 [facility] Comment on above: Order Comment: Specimen Type: BLOOD SPEC IMENOrdering Facility: [facility] Address: [address] [place] [address] Performed By: #### 5 7021-8 ####[facility] LABORATORYCLIA [id number] [address] CONSULT PROGon 08-05-2023 CONSULT PROG HNO ID: [id number] Author: BRIE ROJO APRN.SAW CLEANER Service: Pain Management Author Type: Nurse Practitioner [...] OBJECTIVE PERTINENT ROS: ALLERGIES Allergen Reactions Adhes. Fvtz-Rzcj-Gx* Rash Adhesive Tape-Silic* Rash Augmentin [Amoxicil* Diarrhea Keflex [Cephalexin] Rash, Itching Penicillins Hives Ultram [Tramadol Hc* Itching Information retrieved from Allergy section. Is the patient intubated and sedated? No. Numbness?: No Weakness?: No Nausea?: No Vomitting?: No Pruritis?: No Back pain?: No Headache?: No Sedation?: No Confusion/Delirium?: No Other: none Epidural Location: Thoracic Epidural catheter placed: Day of surgery MEDICATIONS: Epidural Medications and ASSOCIATE PROFESSOR OF GEOGRAPHY Settings Bupivacaine 0.0625% + Fentanyl 2 mcg/mL [...] (CYMBALTA) 60 mg ORAL DAILY phenol 1 Caney (CHLORASEPTIC) 1 Caney MUCOUS MEMBRANE (TOPICAL MOUTH AND THROAT) q [...] SUBCUTANEOUS q (more content not included)... Normal [facility] HIGH SENSITIVITY TROPONIN To n 08-05-2023 Troponin T.cardiac High sensitivity method [Mass/Vol] <6 Normal <12 [facility] Comment on above: Order Comment: Specimen Type: BLOOD SPEC IMENOrdering Facility: [facility] Address: [address] [place] [address] Result Comment: When assessing risk for acute [...] MACE. Performed By: #### 2 4321-2, HSTNT ####[facility] LABORATORYCLIA [id number] [address] OF [facility] NURSING PROGon 08-05-2023 NURSING PROG HNO ID: [id number] Author: DIANA PATHAK, RN Service: Radiology Author Type: Registered Nurse Type: Nursing Progress Note Filed: 08/05/2023 11:42 Note Text: Nursing Progress Note Patient Name: Susi Ortiz Patient Location: [place] [address] [address] Daily Note: 1100: Called to floor for difficult IV access. #22g 2 inch IV started to right FA under US guidance. Flushes well with brisk blood return. This note was completed by: Diana Pathak [facility] NURSING PROG HNO ID: [id number] Author: KIRA VANCE RN Service: ? Author [...] urine. Epidural intact and infusing per AUG. 0803: Called vascular access for a new peripheral IV access, pt is US placement. Vascular access at bedside and placed peripheral IV. [facility] PT EDon 08-05-2023 PT ED HNO ID: [id number] Author: TASNEEM GOOD RD Service: NST-Nutrition Support [...] August 05, 2023 TIME: 12:20 PM PAGER: [facility] ANES PRE-OPon 08-04-2023 ANES PRE-OP HNO ID: [id number] Author: AMANDA ALCANTAR DO Service: Anesthesiology Author [...] montelukast (SINGULA (more content not included)... Normal [facility] BRIEF OP NOTon 08-04-2023 BRIEF OP NOT HNO ID: [id number] Author: JOE GRANDA MD Service: General Surgery Author Type: Physician Type: Brief Op Note Filed: 08/04/2023 15:27 Note Text: BRIEF OPERATIVE NOTE [facility] LOG ID: [id number] SURGERY/PROCEDURE DATE: 08/04/2023 INCISION/PROCEDURE START TIME: 9:39 AM INCISION CLOSE/PROCEDURE END TIME: 2:39 PM SURGEON(S) AND MEN'S GOLF COACH(S): Surgeon(s) and Role: * Joe Granda MD [...] SIGNATURE: Som Hampton MD PATIENT NAME: Susi Borjahip DATE: August 04, 2023 TIME: 3:01 PM [id number] Joe Granda MD [facility] Basic metabolic 2000 panelon 08-04-2023 Anion gap [Moles/Vol] 13 mmol/L Normal 9-18 [facility] Comment on above: Order Comment: Specimen Type: BLOOD SPEC IMENOrdering Facility: [facility] Address: [address] [place] [address] Performed By: #### 1 9123-9, 94364-7, 2776-06 ####[facility] LABORATORYCLIA [id number] [place] [address] [place] Calcium [Mass/Vol] 8.5 mg/dL Normal 8.5-10.2 [facility] Comment on above: Order Comment: Specimen Type: BLOOD SPEC IMENOrdering Facility: [facility] Address: [address] [place] [address] Performed By: #### 1 9123-9, 67383-9, 2776-06 ####GEOR[facility] LABORATORYCLIA [id number] [place] [address] [place] Chloride [Moles/Vol] 101 mmol/L Normal 97-105 [facility] Comment on above: Order Comment: Specimen Type: BLOOD SPEC IMENOrdering Facility: [facility] Address: [address] [place] [address] Performed By: #### 1 9123-9, , 2776-06 ####GEORGE LABORATORYCLIA [id number] [place] [address] [place] CO2 [Moles/Vol] 20 mmol/L Low 22-30 [facility] Comment on above: Order Comment: Specimen Type: BLOOD SPEC IMENOrdering Facility: [facility] Address: [address] [place] [address] Performed By: #### 1 9123-9, , 2776-06 ####GEORGE LABORATORYCLIA [id number] [place] [address] [place] Creatinine [Mass/Vol] 0.69 mg/dL Normal 0.58-0.96 [facility] Comment on above: Order Comment: Specimen Type: BLOOD SPEC IMENOrdering Facility: [facility] Address: [address] [place] [address] Performed By: #### 1 9123-9, 91634-5, 2776-06 ####GEORGE LABORATORYCLIA [id number] [place] [address] [place] Creatinine and Glomerular filtration rate.predicted panel (S/P/Bld) 114 mL/min/1.73m??? Normal >=60 [facility] Comment on above: Order Comment: Specimen Type: BLOOD SPEC IMENOrdering Facility: [facility] Address: [address] [place] [address] Result Comment: Janet mated Glomerular Filtration Rate [...] actual GFR. Performed By: #### 1 9123-9, 66204-5, 2776- ####[facility] LABORATORYCLIA [id number] [place] [address] [place] Glucose [Mass/Vol] 137 mg/dL High 74-99 [facility] Comment on above: Order Comment: Specimen Type: BLOOD SPEC IMENOrdering Facility: [facility] Address: [address] [place] [address] Result Comment: The [place] Diabetes Association (ADA) provides guidance for cutoff [...] Standards of Medical Care in Diabetes 2016, [place] Diabetes Association. Diabetes Care. 2016.39(Suppl 1). Performed By: #### 1 9123-9, 33206-8, 2776- ####[facility] LABORATORYCLIA [id number] [place] [address] [place] Potassium [Moles/Vol] 5.1 mmol/L Normal 3.7-5.1 [facility] Comment on above: Order Comment: Specimen Type: BLOOD SPEC IMENOrdering Facility: [facility] Address: [address] [place] [address] Performed By: #### 1 9123-9, 04113-0, 2776-06 ####GEORGE LABORATORYCLIA [id number] [place] [address] [place] Sodium [Moles/Vol] 134 mmol/L Low 136-144 [facility] Comment on above: Order Comment: Specimen Type: BLOOD SPEC IMENOrdering Facility: [facility] Address: [address] [place] [address] Performed By: #### 1 9123-9, 21703-4, 2776-06 ####[facility] LABORATORYCLIA [id number] [place] [address] [place] Urea nitrogen [Mass/Vol] 7 mg/dL Normal 7-21 [facility] Comment on above: Order Comment: Specimen Type: BLOOD SPEC IMENOrdering Facility: [facility] Address: [address] [place] [address] Performed By: #### 1 9123-9, 82259-4, 2776-06 ####GEOR[facility] LABORATORYCLIA [id number] [place] [address] [place] CBC W Auto Differential pane l (Bld)on 08-04-2023 Basophils (Bld) [#/Vol] 0.06 10*3/uL Normal <0.11 [facility] Comment on above: Order Comment: Specimen Type: BLOOD SPEC IMENOrdering Facility: [facility] Address: [address] [place] [address] Performed By: #### 5 7021-8 ####[facility] LABORATORYCLIA [id number] [address] [place] Basophils/100 WBC (Bld) 0.3 % Normal [facility] Comment on above: Order Comment: Specimen Type: BLOOD SPEC IMENOrdering Facility: [facility] Address: [address] [place] [address] Performed By: #### 5 7021-8 ####[facility] LABORATORYCLIA [id number] [place] [address] [place] Differential cell count method Nom (Bld) Auto Normal [facility] Comment on above: Order Comment: Specimen Type: BLOOD SPEC IMENOrdering Facility: [facility] Address: [address] [place] [address] Performed By: #### 5 7021-8 ####[facility] LABORATORYCLIA [id number] [place] [address] [place] Eosinophils (Bld) [#/Vol] 0.07 10*3/uL Normal <0.46 [facility] Comment on above: Order Comment: Specimen Type: BLOOD SPEC IMENOrdering Facility: [facility] Address: [address] [place] [address] Performed By: #### 5 7021-8 ####[facility] LABORATORYCLIA [id number] [address] [place] Eosinophils/100 WBC (Bld) 0.4 % Normal [facility] Comment on above: Order Comment: Specimen Type: BLOOD SPEC IMENOrdering Facility: [facility] Address: [address] [place] [address] Performed By: #### 5 7021-8 ####[facility] LABORATORYCLIA [id number] [address] [place] Erythrocyte distribution width (RBC) [Ratio] 14.2 % Normal 11.5-15.0 [facility] Comment on above: Order Comment: Specimen Type: BLOOD SPEC IMENOrdering Facility: [facility] Address: [address] [place] [address] Performed By: #### 5 7021-8 ####[facility] LABORATORYCLIA [id number] [place] [address] [facility] [place] Hematocrit (Bld) [Volume fraction] 40.3 % Normal 36.0-46.0 [facility] Comment on above: Order Comment: Specimen Type: BLOOD SPEC IMENOrdering Facility: [facility] Address: [address] [place] [address] Performed By: #### 5 7021-8 ####GEORGE LABORATORYCLIA [id number] [place] [address] [place] Hemoglobin (Bld) [Mass/Vol] 13.0 g/dL Normal 11.5-15.5 [facility] Comment on above: Order Comment: Specimen Type: BLOOD SPEC IMENOrdering Facility: [facility] Address: [address] [place] [address] Performed By: #### 5 7021-8 ####[facility] LABORATORYCLIA [id number] [place] [address] [place] Immature granulocytes (Bld) [#/Vol] 0.05 10*3/uL Normal <0.10 [facility] Comment on above: Order Comment: Specimen Type: BLOOD SPEC IMENOrdering Facility: [facility] Address: [address] [place] [address] Performed By: #### 5 7021-8 ####GEOR[facility] LABORATORYCLIA [id number] [place] [address] [place] Immature granulocytes/100 WBC (Bld) 0.3 % Normal [facility] Comment on above: Order Comment: Specimen Type: BLOOD SPEC IMENOrdering Facility: [facility] Address: [address] [place] [address] Performed By: #### 5 7021-8 ####GEOR[facility] LABORATORYCLIA [id number] [place] [address] [place] Lymphocytes (Bld) [#/Vol] 1.82 10*3/uL Normal 1.00-4.00 [facility] Comment on above: Order Comment: Specimen Type: BLOOD SPEC IMENOrdering Facility: [facility] Address: [address] [place] [address] Performed By: #### 5 7021-8 ####[facility] LABORATORYCLIA [id number] [place] [address] [place] Lymphocytes/100 WBC (Bld) 9.7 % Normal [facility] Comment on above: Order Comment: Specimen Type: BLOOD SPEC IMENOrdering Facility: [facility] Address: [address] [place] [address] Performed By: #### 5 7021-8 ####[facility] LABORATORYCLIA [id number] [place] [address] [place] MCH (RBC) [Entitic mass] 29.4 pg Normal 26.0-34.0 [facility] Comment on above: Order Comment: Specimen Type: BLOOD SPEC IMENOrdering Facility: [facility] Address: [address] [place] [address] Performed By: #### 5 7021-8 ####[facility] LABORATORYCLIA [id number] [place] [address] [place] MCHC (RBC) [Mass/Vol] 32.3 g/dL Normal 30.5-36.0 [facility] Comment on above: Order Comment: Specimen Type: BLOOD SPEC IMENOrdering Facility: [facility] Address: [address] [place] [address] Performed By: #### 5 7021-8 ####[facility] LABORATORYCLIA [id number] [address] [place] MCV (RBC) [Entitic vol] 91.2 fL Normal 80.0-100.0 [facility] Comment on above: Order Comment: Specimen Type: BLOOD SPEC IMENOrdering Facility: [facility] Address: [address] [place] [address] Performed By: #### 5 7021-8 ####[facility] LABORATORYCLIA [id number] [place] [address] [place] Monocytes (Bld) [#/Vol] 1.16 10*3/uL High <0.87 [facility] Comment on above: Order Comment: Specimen Type: BLOOD SPEC IMENOrdering Facility: [facility] Address: [address] [place] [address] Performed By: #### 5 7021-8 ####[facility] LABORATORYCLIA [id number] [address] [place] Monocytes/100 WBC (Bld) 6.2 % Normal [facility] Comment on above: Order Comment: Specimen Type: BLOOD SPEC IMENOrdering Facility: [facility] Address: [address] [place] [address] Performed By: #### 5 7021-8 ####[facility] LABORATORYCLIA [id number] [place] [address] [place] Neutrophils (Bld) [#/Vol] 15.62 10*3/uL High 1.45-7.50 [facility] Comment on above: Order Comment: Specimen Type: BLOOD SPEC IMENOrdering Facility: [facility] Address: [address] [place] [address] Performed By: #### 5 7021-8 ####[facility] LABORATORYCLIA [id number] [place] [address] [place] Neutrophils/100 WBC (Bld) 83.1 % Normal [facility] Comment on above: Order Comment: Specimen Type: BLOOD SPEC IMENOrdering Facility: [facility] Address: [address] [place] [address] Performed By: #### 5 7021-8 ####[facility] LABORATORYCLIA [id number] [place] [address] [place] Nucleated RBC (Bld) [#/Vol] 10*3/uL Normal <0.01 [facility] Comment on above: Order Comment: Specimen Type: BLOOD SPEC IMENOrdering Facility: [facility] Address: [address] [place] [address] Performed By: #### 5 7021-8 ####GEOR[facility] LABORATORYCLIA [id number] [place] [address] [place] Nucleated RBC/100 WBC (Bld) [Ratio] 0.0 /100 WBC Normal [facility] Comment on above: Order Comment: Specimen Type: BLOOD SPEC IMENOrdering Facility: [facility] Address: [address] [place] [address] Performed By: #### 5 7021-8 ####[facility] LABORATORYCLIA [id number] [place] [address] [place] Platelet mean volume (Bld) [Entitic vol] 9.2 fL Normal 9.0-12.7 [facility] Comment on above: Order Comment: Specimen Type: BLOOD SPEC IMENOrdering Facility: [facility] Address: [address] [place] [address] Performed By: #### 5 7021-8 ####[facility] LABORATORYCLIA [id number] [place] [address] [place] Platelets (Bld) [#/Vol] 502 10*3/uL High 150-400 [facility] Comment on above: Order Comment: Specimen Type: BLOOD SPEC IMENOrdering Facility: [facility] Address: [address] [place] [address] Performed By: #### 5 7021-8 ####[facility] LABORATORYCLIA [id number] [place] [address] [place] RBC (Bld) [#/Vol] 4.42 10*6/uL Normal 3.90-5.20 [facility] Comment on above: Order Comment: Specimen Type: BLOOD SPEC IMENOrdering Facility: [facility] Address: [address] [place] [address] Performed By: #### 5 7021-8 ####[facility] LABORATORYCLIA [id number] [place] [address] [place] WBC (Bld) [#/Vol] 18.78 10*3/uL High 3.70-11.00 [facility] Comment on above: Order Comment: Specimen Type: BLOOD SPEC IMENOrdering Facility: [facility] Address: [address] [place] [address] Performed By: #### 5 7021-8 ####[facility] LABORATORYCLIA [id number] [place] [address] [facility] [place] HIGH SENSITIVITY TROPONIN To n 08-04-2023 Troponin T.cardiac High sensitivity method [Mass/Vol] 7 ng/L Normal <12 [facility] Comment on above: Order Comment: Specimen Type: BLOOD SPEC IMENOrdering Facility: [facility] Address: [address] [place] [address] Result Comment: When assessing risk for acute [...] day MACE. Performed By: #### H STNT ####[facility] LABORATORYCLIA [id number] [place] [address] [facility] [place] Magnesium SerPl-mCncon 08-04 Magnesium [Mass/Vol] 1.8 mg/dL Normal 1.7-2.3 [facility] Comment on above: Order Comment: Specimen Type: BLOOD SPEC IMENOrdering Facility: [facility] Address: [address] [place] [address] [place] [address] Performed By: #### 1 9123-9, 80222-1, 2777-1 ####[facility] LABORATORYCLIA [id number] [place] [address] [place] NURSING PROGon 08-04-2023 NURSING PROG HNO ID: [id number] Author: KIRA VANCE, SUSAN Service: ? Author Type: Registered Nurse Type: Nursing Progress Note Filed: 08/04/2023 17:06 Note Text: Transfer Note: PATIENT NAME: Susi Ortiz Patient Location: [place] [address] [address] Room: [place] [address] [facility]. Actions taken: No futher actions taken at this time. Will continue to monitor and check with patient. 1705: Sent text page to surgical team, pt has epidural and need order for tele and pulse ox. Normal [facility] NURSING PROG HNO ID: [id number] Author: KINGA HERNANDEZ RN Service: Nursing Author Type: Registered Nurse Type: Nursing Progress Note Filed: 08/04/2023 07:38 Note Text: 0700- Patient refusing PANCHO hose and SCDs at this time. 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 [facility] NURSING PROG HNO ID: [id number] Author: KIEL MALONEY, SUSAN Service: Pain Management Author Type: Registered Nurse Type: Nursing Progress Note Filed: 08/04/2023 08:16 Note Text: THORACIC EPIDURAL ( T8) Dr. Lopez and Dr. Wiggins Patient verbalized understanding of epidural procedure. Patient tolerated procedure very well. [facility] NURSING PROG HNO ID: [id number] Author: KINGA HERNANDEZ RN Service: Nursing Author Type: Registered Nurse Type: Nursing Progress Note Filed: 08/04/2023 06:40 Note Text: PATIENT EDUCATION TOPIC: PROCEDURE / SURGERY: Pre-op Teaching: Surgical Safety Principles PATIENT NAME: Susi Ortiz PATIENT LOCATION: OR [place]/[facility] OR POOL READINESS TO LEARN COGNITIVE ABILITY: [...] (RECOMMENDATION): None Electronically Signed By: Kinga Hernandez [facility] OPERATIVE NOon 08-04-2023 OPERATIVE NO HNO ID: [id number] Author: JOE GRANDA MD Service: General Surgery Author Type: Physician Type: Operative Report Filed: 08/05/2023 15:18 Note Text: [facility] - Operative Report SUSI ORTIZ : 1985 AGE: 38. SEX: F PATIENT TYPE: I HOSP SVC: Surgical LOCATION: [facility] ATTENDING PHYSICIAN: Joe Granda M.D. CSN NUMBER: [id number] DATE OF SURGERY/PROCEDURE: 08/04/2023 INCISION/PROCEDURE START TIME: 9:39 AM INCISION CLOSE/PROCEDURE END TIME: 2:39 PM PREOPERATIVE DIAGNOSIS: 1. Persistent morbid obesity. 2. 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 3. History of open splenectomy. POSTOPERATIVE DIAGNOSIS: 1. Persistent morbid obesity. 2. 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 3. History of open splenectomy. SURGEON: Joe Granda M.D. MEN'S GOLF COACH: 1. Cony Soler MD. 2. Som Hampton [...] during the duodenal dissection. Joe Granda M.D. ESTEFANIA:[id number] /[id number] D: (more content not included)... Normal [facility] Phosphate SerPl-mCncon 08-04 Phosphate [Mass/Vol] 3.9 mg/dL Normal 2.7-4.8 [facility] Comment on above: Order Comment: Specimen Type: BLOOD SPEC IMENOrdering Facility: [facility] Address: [address] [place] [address] [place] [address] Performed By: #### 1 7223-9, 00671-1, 2777-1 ####[facility] [id number] [address] Nick 08-03-2023 CNPN Telephone (GENVIR[place]IAI) ANGELSUSI ([id number]) 1985 F FNS Date Time Provider Department 08/03/23 SILVIA CURRY During your visit today, we recorded the following information about you: Silvia Curry, RN 08/03/2023 5:00 PM Signed [facility] COORDINATION SURGERY PRE-OP EDUCATION NOTE Phoned patient to reinforce prior pre-op instruction and answer any questions she might have. No answer. Left brief vmm including contact info for this RN and requested call back. Allergies As of Date: 08/03/2023 Noted Allergy Reaction ADHES. [id number] 03/13/2015 2 - Rash ADHESIVE TAPE-SILICONES 05/06/2019 [...] Status:Closed by SILVIA CURRY on 08/03/23 Normal [facility] HISTORY PHYSICALon HISTORY PHYSICAL HNO ID: [id number] Author: NONI SUMMERS APRN.SAW CLEANER Service: ? Author Type: Nurse Practitioner Type: [...] on CPAP Assessment: Noncompliant with CPAP Thrombocytosis ([facility]) Assessment: chronic leukocytosis and thrombocytosis Most recent labs CBC with diff: WBC 13.23 07/13/2023 Platelet Count 555 07/13/2023 Bipolar affective disorder ([facility]) Assessment: managed on medication by PCP and [...] orally disintegrat (more content not included)... Normal [facility] TYPE AND SCREEN,30 DAYon ABO A Normal [facility] Comment on above: Order Comment: Specimen Type: BLOOD SPEC IMEN [facility] Address: [address] [place] [address] Performed By: #### 2 284-8, 27308, 2132-02 #### [facility] CLIA [id number] [address] [place] [address] [place] HISTORICAL AB SCR STATUS Negative Normal [facility] Comment on above: Order Comment: Specimen Type: BLOOD SPEC IMEN [facility] Address: [address] [place] [address] Performed By: #### 2 284-8, 27308, 2132-02 #### [facility] CLIA [id number] [address] [place] [address] [place] Rh Nom (Bld) Positive Normal [facility] Comment on above: Order Comment: Specimen Type: BLOOD SPEC IMEN [facility] Address: [address] [place] [address] Performed By: #### 2 284-8, 0538, 2132-02 #### [facility] CLIA [id number] [address] [place] [address] [place] CNOVon 07-20-2023 CNOV Office Visit (BMIREJ ) SUSI ORTIZ ([id number]) 1985 F FNS Date Time Provider Department 07/20/23 11:50 AM JOE GRANDA BMIJAN During your visit today, we recorded the following information about you: Pulse Blood pressure Weight Height 77/minute 121/78 175 kg 1.626 m Last Period 07/08/23 Joe Granda MD 07/20/2023 2:06 PM Signed SURGERY PREOPERATIVE VISIT NOTE Name: Susi Ortiz Medical Record: [id number] Encounter No.: [id number] Susi Ortiz is a 38 year old [...] use: Never ALLERGIES: ALLERGIES Allergen Reactions Adhes. Tsqm-Qwhp-Ae* Rash Adhesive Tape-Silic* Rash Augmentin [Amoxicil* Diarrhea [...] regarding unsatisfactory weight loss as well as group home weight regain. I have also discussed medical complications including urinary tract infections, myocardial infarction, DVT, PE, prolonged ICU stay, and possible postoperative mechanical ventilation and the risk of mortality. I have reviewed with this patient needed nutritional changes, post-operative recovery, and the potential (more content not included)... Normal [facility] CBC W Auto Differential pane l (Bld)on 07-13-2023 Basophils (Bld) [#/Vol] 0.11 10*3/uL High <0.11 [facility] Comment on above: Order Comment: Specimen Type: BLOOD SPEC IMENOrdering Facility: [facility] Address: [address] [place] [address] Performed By: #### 5 7021-8 ####[facility] LABCLIA [id number] [place] [address] Basophils/100 WBC (Bld) 0.8 % Normal [facility] Comment on above: Order Comment: Specimen Type: BLOOD SPEC IMENOrdering Facility: [facility] Address: [address] [place] [address] Performed By: #### 5 7021-8 ####[facility] LABCLIA [id number] [place] [address] Differential cell count method Nom (Bld) Auto Normal [facility] Comment on above: Order Comment: Specimen Type: BLOOD SPEC IMENOrdering Facility: [facility] Address: [address] [place] [address] Performed By: #### 5 7021-8 ####[facility] LABCLIA [id number] [place] [address] Eosinophils (Bld) [#/Vol] 0.31 10*3/uL Normal <0.46 [facility] Comment on above: Order Comment: Specimen Type: BLOOD SPEC IMENOrdering Facility: [facility] Address: [address] [place] [address] Performed By: #### 5 7021-8 ####[facility] LABCLIA [id number] [place] [address] Eosinophils/100 WBC (Bld) 2.3 % Normal [facility] Comment on above: Order Comment: Specimen Type: BLOOD SPEC IMENOrdering Facility: [facility] Address: [address] [place] [address] Performed By: #### 5 7021-8 ####[facility] LABCLIA [id number] [place] [address] Erythrocyte distribution width (RBC) [Ratio] 14.1 % Normal 11.5-15.0 [facility] Comment on above: Order Comment: Specimen Type: BLOOD SPEC IMENOrdering Facility: [facility] Address: [address] [place] [address] Performed By: #### 5 7021-8 ####[facility] LABIA [id number] [place] [address] Hematocrit (Bld) [Volume fraction] 45.8 % Normal 36.0-46.0 [facility] Comment on above: Order Comment: Specimen Type: BLOOD SPEC IMENOrdering Facility: [facility] Address: [address] [place] [address] Performed By: #### 5 7021-8 ####[facility] LABCLIA [id number] [place] [address] Hemoglobin (Bld) [Mass/Vol] 14.7 g/dL Normal 11.5-15.5 [facility] Comment on above: Order Comment: Specimen Type: BLOOD SPEC IMENOrdering Facility: [facility] Address: [address] [place] [address] Performed By: #### 5 7021-8 ####[facility] LABIA [id number] [place] [address] Immature granulocytes (Bld) [#/Vol] 0.05 10*3/uL Normal <0.10 [facility] Comment on above: Order Comment: Specimen Type: BLOOD SPEC IMENOrdering Facility: [facility] Address: [address] [place] [address] Performed By: #### 5 7021-8 ####[facility] LABCLIA [id number] [place] [address] Immature granulocytes/100 WBC (Bld) 0.4 % Normal [facility] Comment on above: Order Comment: Specimen Type: BLOOD SPEC IMENOrdering Facility: [facility] Address: [address] [place] [address] Performed By: #### 5 7021-8 ####[facility] LABCLIA [id number] [place] [address] Lymphocytes (Bld) [#/Vol] 3.61 10*3/uL Normal 1.00-4.00 [facility] Comment on above: Order Comment: Specimen Type: BLOOD SPEC IMENOrdering Facility: [facility] Address: [address] [place] [address] Performed By: #### 5 7021-8 ####[facility] LABIA [id number] [place] [address] Lymphocytes/100 WBC (Bld) 27.3 % Normal [facility] Comment on above: Order Comment: Specimen Type: BLOOD SPEC IMENOrdering Facility: [facility] Address: [address] [place] [address] Performed By: #### 5 7021-8 ####[facility] LABIA [id number] [place] [address] MCH (RBC) [Entitic mass] 28.9 pg Normal 26.0-34.0 [facility] Comment on above: Order Comment: Specimen Type: BLOOD SPEC IMENOrdering Facility: [facility] Address: [address] [place] [address] Performed By: #### 5 7021-8 ####[facility] LABCLIA [id number] [place] [address] MCHC (RBC) [Mass/Vol] 32.1 g/dL Normal 30.5-36.0 [facility] Comment on above: Order Comment: Specimen Type: BLOOD SPEC IMENOrdering Facility: [facility] Address: [address] [place] [address] Performed By: #### 5 7021-8 ####[facility] LABCLIA [id number] [place] [address] MCV (RBC) [Entitic vol] 90.0 fL Normal 80.0-100.0 [facility] Comment on above: Order Comment: Specimen Type: BLOOD SPEC IMENOrdering Facility: [facility] Address: [address] [place] [address] Performed By: #### 5 7021-8 ####[facility] LABCLIA [id number] [place] [address] Monocytes (Bld) [#/Vol] 1.10 10*3/uL High <0.87 [facility] Comment on above: Order Comment: Specimen Type: BLOOD SPEC IMENOrdering Facility: [facility] Address: [address] [place] [address] Performed By: #### 5 7021-8 ####[facility] LABCLIA [id number] [place] [address] Monocytes/100 WBC (Bld) 8.3 % Normal [facility] Comment on above: Order Comment: Specimen Type: BLOOD SPEC IMENOrdering Facility: [facility] Address: [address] [place] [address] Performed By: #### 5 7021-8 ####[facility] LABCLIA [id number] [place] [address] Neutrophils (Bld) [#/Vol] 8.05 10*3/uL High 1.45-7.50 [facility] Comment on above: Order Comment: Specimen Type: BLOOD SPEC IMENOrdering Facility: [facility] Address: [address] [place] [address] Performed By: #### 5 7021-8 ####[facility] LABCLIA [id number] [place] [address] Neutrophils/100 WBC (Bld) 60.9 % Normal [facility] Comment on above: Order Comment: Specimen Type: BLOOD SPEC IMENOrdering Facility: [facility] Address: [address] [place] [address] Performed By: #### 5 7021-8 ####[facility] LABCLIA [id number] [place] [address] Nucleated RBC (Bld) [#/Vol] 10*3/uL Normal <0.01 [facility] Comment on above: Order Comment: Specimen Type: BLOOD SPEC IMENOrdering Facility: [facility] Address: [address] [place] [address] Performed By: #### 5 7021-8 ####[facility] LABIA [id number] [place] [address] Nucleated RBC/100 WBC (Bld) [Ratio] 0.0 /100 WBC Normal [facility] Comment on above: Order Comment: Specimen Type: BLOOD SPEC IMENOrdering Facility: [facility] Address: [address] [place] [address] Performed By: #### 5 7021-8 ####[facility] LABIA [id number] [place] [address] Platelet mean volume (Bld) [Entitic vol] 9.1 fL Normal 9.0-12.7 [facility] Comment on above: Order Comment: Specimen Type: BLOOD SPEC IMENOrdering Facility: [facility] Address: [address] [place] [address] Performed By: #### 5 7021-8 ####[facility] LABIA [id number] [place] [address] Platelets (Bld) [#/Vol] 555 10*3/uL High 150-400 [facility] Comment on above: Order Comment: Specimen Type: BLOOD SPEC IMENOrdering Facility: [facility] Address: [address] [place], [place] [address] Performed By: #### 5 7021-8 ####[facility] LABCLIA [id number] [place] [address] RBC (Bld) [#/Vol] 5.09 10*6/uL Normal 3.90-5.20 [facility] Comment on above: Order Comment: Specimen Type: BLOOD SPEC IMENOrdering Facility: [facility] Address: [address] [place] [address] Performed By: #### 5 7021-8 ####[facility] LABCLIA [id number] [place] [address] WBC (Bld) [#/Vol] 13.23 10*3/uL High 3.70-11.00 [facility] Comment on above: Order Comment: Specimen Type: BLOOD SPEC IMENOrdering Facility: [facility] Address: [address] [place] [address] Performed By: #### 5 7021-8 ####[facility] LABCLIA [id number] [place] [address] Comprehensive metabolic 2000 panelon 07-13-2023 Albumin [Mass/Vol] 4.5 g/dL Normal 3.9-4.9 [facility] Comment on above: Order Comment: Specimen Type: BLOOD SPEC IMEN [facility]ing Facility: [facility] Address: [address] [place] [address] Performed By: #### 2 284-8, 273-8, 2132-02 #### [facility] CLIA [id number] [address] [facility] [id number] [address] [place] ALP [Catalytic activity/Vol] 124 U/L High 34-123 [facility] Comment on above: Order Comment: Specimen Type: BLOOD SPEC IMEN [facility]ing Facility: [facility] Address: [address] [place] [address] Performed By: #### 2 284-8, 273-8, 2132-02 #### [facility] CLIA [id number] [address] [place] [address] [place] ALT [Catalytic activity/Vol] 18 U/L Normal 7-38 [facility] Comment on above: Order Comment: Specimen Type: BLOOD SPEC IMEN [facility]ing Facility: [facility] Address: [address] [place] [address] Performed By: #### 2 284-8, 2731-8, 2132-02 #### [facility] CLIA [id number] [address] [place] [address] [place] Anion gap [Moles/Vol] 11 mmol/L Normal 9-18 [facility] Comment on above: Order Comment: Specimen Type: BLOOD SPEC IMEN [facility]ing Facility: [facility] Address: [address] [place] [address] Performed By: #### 2 284-8, 2730-8, 2132-02 #### [facility] CLIA [id number] [address] [place] [address] [place] AST [Catalytic activity/Vol] 21 U/L Normal 13-35 [facility] Comment on above: Order Comment: Specimen Type: BLOOD SPEC IMEN [facility]ing Facility: [facility] Address: [address] [place] [address] Performed By: #### 2 284-8, 2730-8, 2132-02 #### [facility] CLIA [id number] [address] [place] [address] [place] Bilirubin [Mass/Vol] 0.3 mg/dL Normal 0.2-1.3 [facility] Comment on above: Order Comment: Specimen Type: BLOOD SPEC IMEN Ordering Facility: [facility] Address: [address] [place] [address] Performed By: #### 2 284-8, 2731-8, 2132-02 #### [facility] CLIA [id number] [address] [place] [address] [place] Calcium [Mass/Vol] 10.0 mg/dL Normal 8.5-10.2 [facility] Comment on above: Order Comment: Specimen Type: BLOOD SPEC IMEN Ordering Facility: [facility] Address: [address] [place] [address] Performed By: #### 2 284-8, 8, 2132-02 #### [facility] CLIA [id number] [address] [place] [address] [place] Chloride [Moles/Vol] 101 mmol/L Normal 97-105 [facility] Comment on above: Order Comment: Specimen Type: BLOOD SPEC IMEN [facility]ing Facility: [facility] Address: [address] [place] [address] Performed By: #### 2 284-8, 2731-01, 2132-02 #### [facility] CLIA [id number] [address] [place] [address] [place] CO2 [Moles/Vol] 25 mmol/L Normal 22-30 [facility] Comment on above: Order Comment: Specimen Type: BLOOD SPEC IMEN [facility]ing Facility: [facility] Address: [address] [place] [address] Performed By: #### 2 284-8, 8, 2132-02 #### [facility] CLIA [id number] [address] [place] [address] [place] Creatinine [Mass/Vol] 0.73 mg/dL Normal 0.58-0.96 [facility] Comment on above: Order Comment: Specimen Type: BLOOD SPEC IMEN [facility]ing Facility: [facility] Address: [address] [place] [address] Performed By: #### 2 284-8, 8, 2132-02 #### [facility] CLIA [id number] [address] [place] [address] [place] Creatinine and Glomerular filtration rate.predicted panel (S/P/Bld) 108 mL/min/1.73m??? Normal >=60 [facility] Comment on above: Order Comment: Specimen Type: BLOOD SPEC IMEN [facility]ing Facility: [facility] Address: [address] [place] [address] Result Comment: Janet mated Glomerular Filtration Rate [...] By: #### 2 284-8, 8, 2132-02 #### [facility] CLIA [id number] [address] [place] [address] [place] Glucose [Mass/Vol] 115 mg/dL High 74-99 [facility] Comment on above: Order Comment: Specimen Type: BLOOD SPEC IMEN Ordering Facility: [facility] Address: [address] [place] [address] Result Comment: The [employer] (ADA) provides guidance for cutoff [...] Standards of Medical Care in Diabetes 2016, [employer]. Diabetes Care. 2016.39(Suppl 1). Performed By: #### 2 284-8, 2730-8, 2132-02 #### [facility] CLIA [id number] [address] [place] [address] [place] Potassium [Moles/Vol] 4.3 mmol/L Normal 3.7-5.1 [facility] Comment on above: Order Comment: Specimen Type: BLOOD SPEC IMEN [facility]ing Facility: [facility] Address: [address] [place] [address] Performed By: #### 2 284-8, 2731-8, 9 #### [facility] CLIA [id number] [address] [place] [address] [place] Protein [Mass/Vol] 8.1 g/dL High 6.3-8.0 [facility] Comment on above: Order Comment: Specimen Type: BLOOD SPEC IMEN [facility]ing Facility: [facility] Address: [address] [place] [address] Performed By: #### 2 284-8, 2731-8, 2132-02 #### [facility] CLIA [id number] [address] [place] [address] [place] Sodium [Moles/Vol] 137 mmol/L Normal 136-144 [facility] Comment on above: Order Comment: Specimen Type: BLOOD SPEC IMEN [facility]ing Facility: [facility] Address: [address] [place] [address] Performed By: #### 2 284-8, 273-8, 9 #### [facility] CLIA [id number] [address] [place] [address] [place] Urea nitrogen [Mass/Vol] 10 mg/dL Normal 7-21 [facility] Comment on above: Order Comment: Specimen Type: BLOOD SPEC IMEN [facility]ing Facility: [facility] Address: [address] [place] [address] Performed By: #### 2 284-8, 273-8, 9 #### [facility] CLIA [id number] [address] [place] [address] [place] Nick 04-27-2023 ANANYA Telephone (BMIREJ) ANGELSUSI ([id number]) 1985 [address] [facility] Date Time Provider Department 04/27/23 JOE GRANDAJ During your visit today, we recorded the [...] of Date: 04/27/2023 Noted Allergy Reaction ADHES. [id number] 03/13/2015 2 - Rash ADHESIVE TAPE-SILICONES 05/06/2019 2 - Rash AUGMENTIN (AMOXICILLIN-POT CLAVUL*05/06/2019 6 - Diarrhea KEFLEX (CEPHALEXIN) 05/06/2019 2 - Rash 9 - Itching PENICILLINS 05/06/2019 4 - Hives ULTRAM (TRAMADOL HCL) 03/13/2015 9 - Itching Date Reviewed: 03/31/2023 Reviewed by: Hina Monet, RN - Fully Assessed Prescriptions as of [...] Status:Closed by JOE GRANDA on 04/27/23 Normal [facility] Basic metabolic 2000 panelon 04-01-2023 Anion gap [Moles/Vol] 10 mmol/L Normal 9-18 [facility] Comment on above: Order Comment: Specimen Type: BLOOD SPEC IMENOrdering Facility: [facility] Address: [address] [place] [address] Performed By: #### 2 4321-2 ####[facility]ATORYCLIA [id number] [place] [address] [place] Calcium [Mass/Vol] 9.1 mg/dL Normal 8.5-10.2 [facility] Comment on above: Order Comment: Specimen Type: BLOOD SPEC IMENOrdering Facility: [facility] Address: [address] [place] [address] Performed By: #### 2 4321-2 ####[facility]ORATORYCLIA [id number] [place] [address] [place] Chloride [Moles/Vol] 102 mmol/L Normal 97-105 [facility] Comment on above: Order Comment: Specimen Type: BLOOD SPEC IMENOrdering Facility: [facility] Address: [address] [place] [address] Performed By: #### 2 4321-2 ####[facility] LABORATORYCLIA [id number] [place] [address] [place] CO2 [Moles/Vol] 25 mmol/L Normal 22-30 [facility] Comment on above: Order Comment: Specimen Type: BLOOD SPEC IMENOrdering Facility: [facility] Address: [address] [place] [address] Performed By: #### 2 4321-2 ####[facility]ATORYCLIA [id number] [place] [address] [place] Creatinine [Mass/Vol] 0.59 mg/dL Normal 0.58-0.96 [facility] Comment on above: Order Comment: Specimen Type: BLOOD SPEC IMENOrdering Facility: [facility] Address: [address] [place] [address] Performed By: #### 2 4321-2 ####[facility]ATORYCLIA [id number] [place] [address] [place] Creatinine and Glomerular filtration rate.predicted panel (S/P/Bld) 119 mL/min/1.73m??? Normal >=60 [facility] Comment on above: Order Comment: Specimen Type: BLOOD SPEC IMENOrdering Facility: [facility] Address: [address] [place] [address] Result Comment: Janet mated Glomerular Filtration Rate [...] actual GFR. Performed By: #### 2 4321-2 ####[facility]ORY[facility]IA [id number] [place] [address] [place] Glucose [Mass/Vol] 130 mg/dL High 74-99 [facility] Comment on above: Order Comment: Specimen Type: BLOOD SPEC IMENOrdering Facility: [facility] Address: [address] [place] [address] Result Comment: The [employer] Diabetes Association (ADA) provides guidance for cutoff [...] Standards of Medical Care in Diabetes 2016, [place] Diabetes [employer]. Diabetes Care. 2016.39(Suppl 1). Performed By: #### 2 4321-2 ####[facility]ATORYCLIA [id number] [place] [address] [place] Potassium [Moles/Vol] 4.2 mmol/L Normal 3.7-5.1 [facility] Comment on above: Order Comment: Specimen Type: BLOOD SPEC IMENOrdering Facility: [facility] Address: [address] [place] [address] Performed By: #### 2 4321-2 ####[facility]ATORYCLIA [id number] [address] Sodium [Moles/Vol] 137 mmol/L Normal 136-144 [facility] Comment on above: Order Comment: Specimen Type: BLOOD SPEC IMENOrdering Facility: [facility] Address: [address] [place] [address] Performed By: #### 2 4321-2 ####[facility]ORATORYCLIA [id number] [address] [place] [facility] Urea nitrogen [Mass/Vol] 5 mg/dL Low 7-21 [facility] Comment on above: Order Comment: Specimen Type: BLOOD SPEC IMENOrdering Facility: [facility] Address: [address] [place] [address] Performed By: #### 2 4321-2 ####[facility]ATORYCLIA [id number] [address] CBC panel Auto (Bld)on 04-01 Erythrocyte distribution width (RBC) [Ratio] 15.1 % High 11.5-15.0 [facility] Comment on above: Order Comment: Specimen Type: BLOOD SPEC IMENOrdering Facility: [facility] Address: [address] [place] [address] Performed By: #### 5 8410-2 ####[facility]ORYCLIA [id number] [address] Hematocrit (Bld) [Volume fraction] 39.2 % Normal 36.0-46.0 [facility] Comment on above: Order Comment: Specimen Type: BLOOD SPEC IMENOrdering Facility: [facility] Address: [address] [place] [address] Performed By: #### 5 8410-2 ####[facility]ORYCLIA [id number] [address] Hemoglobin (Bld) [Mass/Vol] 12.7 g/dL Normal 11.5-15.5 [facility] Comment on above: Order Comment: Specimen Type: BLOOD SPEC IMENOrdering Facility: [facility] Address: [address] [place] [address] Performed By: #### 5 8410-2 ####[facility]ORYCLIA [id number] [address] MCH (RBC) [Entitic mass] 29.3 pg Normal 26.0-34.0 [facility] Comment on above: Order Comment: Specimen Type: BLOOD SPEC IMENOrdering Facility: [facility] Address: [address] [place] [address] Performed By: #### 5 8410-2 ####[facility]ORYCLIA [id number] [address] [place] [facility] MCHC (RBC) [Mass/Vol] 32.4 g/dL Normal 30.5-36.0 [facility] Comment on above: Order Comment: Specimen Type: BLOOD SPEC IMENOrdering Facility: [facility] Address: [address] [place] [address] Performed By: #### 5 8410-2 ####[facility]ORYCLIA [id number] [address] MCV (RBC) [Entitic vol] 90.3 fL Normal 80.0-100.0 [facility] Comment on above: Order Comment: Specimen Type: BLOOD SPEC IMENOrdering Facility: [facility] Address: [address] [place] [address] Performed By: #### 5 8410-2 ####[facility]ATORYCLIA [id number] [address] [place] Nucleated RBC (Bld) [#/Vol] 10*3/uL Normal <0.01 [facility] Comment on above: Order Comment: Specimen Type: BLOOD SPEC IMENOrdering Facility: [facility] Address: [address] [place] [address] Performed By: #### 5 8410-2 ####[facility]ATORYCLIA [id number] [place] [address] [place] Platelet mean volume (Bld) [Entitic vol] 9.7 fL Normal 9.0-12.7 [facility] Comment on above: Order Comment: Specimen Type: BLOOD SPEC IMENOrdering Facility: [facility] Address: [address] [place] [address] Performed By: #### 5 8410-2 ####[facility] LABORATORYCLIA [id number] [place] [address] [place] Platelets (Bld) [#/Vol] 463 10*3/uL High 150-400 [facility] Comment on above: Order Comment: Specimen Type: BLOOD SPEC IMENOrdering Facility: [facility] Address: [address] [place] [address] Performed By: #### 5 8410-2 ####[facility] LABORATORYCLIA [id number] [place] [address] [place] RBC (Bld) [#/Vol] 4.34 10*6/uL Normal 3.90-5.20 [facility] Comment on above: Order Comment: Specimen Type: BLOOD SPEC IMENOrdering Facility: [facility] Address: [address] [place] [address] Performed By: #### 5 8410-2 ####[facility] LABORATORYCLIA [id number] [place] [address] [place] WBC (Bld) [#/Vol] 15.94 10*3/uL High 3.70-11.00 [facility] Comment on above: Order Comment: Specimen Type: BLOOD SPEC IMENOrdering Facility: [facility] Address: [address] [place] [address] Performed By: #### 5 8410-2 ####[facility] LABORATORYCLIA [id number] [place] [id number] [facility] [place] NURSING PROGon 04-01-2023 NURSING PROG HNO ID: [id number] Author: Susi Ruffin RN Service: Nursing Author Type: Registered Nurse Type: Nursing Progress Note Filed: 04/01/2023 4:52 PM Note Text: Daily Note 1645 Pt discharged in stable condition and all of belongings left with pt. Discussed discharge paperwork, follow-up appointments, and clarified questions. IV removed and transport called to wheel pt out. [facility] NURSING PROG HNO ID: [id number] Author: Hina Monet RN Service: ? Author Type: Registered Nurse Type: Nursing Progress Note Filed: 04/01/2023 3:24 AM Note Text: Pt tolerating clears. Given oxycodone twice tonight for abd pain. States passing flatus. up to BR with standby assist. Steady, stable. [facility] PT EDon 04-01-2023 PT ED HNO ID: [id number] Author: Tasneem Good RD Service: NST-Nutrition Support [...] SIGNATURE: Tasneem Good RD PATIENT NAME: Susi Jeanenship DATE: April 01, 2023 TIME: 12:23 PM PAGER: [facility] ANES POSTPROC EVALon 023 ANES POSTPROC EVAL HNO ID: [id number] Author: Darrel Conklin MD Service: Anesthesiology Author [...] SIGNATURE: Darrel Conklin MD PATIENT NAME: Susi Naqvi Ortiz DATE: March 31, 2023 TIME: 2:40 PM CSN: [id number] [facility] ANES PRE-OPon 03-31-2023 ANES PRE-OP HNO ID: [id number] Author: Darrel Conklin MD Service: Anesthesiology Author Type: Anesthesiologist Type: Anesthesia Preprocedure Evaluation Filed: 03/31/2023 9:13 AM Note Text: ANESTHESIOLOGY DAY OF SURGERY NOTE : 1985 Procedure Information Date/Time: 03/31/23929 Procedure: LAPAROSCOPY SURGICAL GASTRIC RESTRICTIVE PROCEDURE BILIOPANCREATIC DIVERSION WITH DUODENAL SWITCH (Abdomen) Location: OR06 / [facility] Surgeons: Joe Granda [...] March 31, 2023 TIME: 9:13 AM CSN: [id number] [facility] BRIEF OP NOTon 03-31-2023 BRIEF OP NOT HNO ID: [id number] Author: Joe Abraham MD Service: General Surgery Author Type: Resident Type: Brief Op Note Filed: 03/31/2023 12:53 PM Note Text: Attestation signed by Joe Granda MD at 03/31/2023 2:33 PM [id number] Joe Granda MD GENERAL SURGERY BRIEF OP NOTE LOG ID: [id number] Surgery/Procedure Date: 03/31/2023 Incision/Procedure Start Time: 11:11 AM Incision Close/Procedure End Time: 12:52 PM Surgeon(s) and Tobacco Stripper Hand(s): Surgeon(s) and Role: * Joe Granda MD [...] 31, 2023 TIME: 12:52 PM PAGER/CONTACT #: [phone] [facility] NURSING PROGon 03-31-2023 NURSING PROG HNO ID: [id number] Author: Susi Ruffin RN Service: Nursing Author Type: Registered Nurse Type: Nursing Progress Note Filed: 03/31/2023 5:08 PM Note Text: Transfer Note: PATIENT NAME: Susi Ortiz Patient Location: [place] [address] [address] Room: [place] [address] Patient transferred in stable condition. Actions taken: Report given/called to [facility]. Orders signed and held were transferred over. [facility] NURSING PROG HNO ID: [id number] Author: Cathleen Hubbard RN Service: Nursing Author [...] (RECOMMENDATION): None Electronically Signed By: Cathleen Hubbard [facility] OPERATIVE NOon 03-31-2023 OPERATIVE NO HNO ID: [id number] Author: Joe Granda MD Service: General Surgery Author Type: Physician Type: Operative Report Filed: 04/09/2023 3:22 PM Note Text: [facility] - Operative Report SUSI ORTIZ : 1985 AGE: 37. SEX: F PATIENT TYPE: I HOSP SVC: Surgical LOCATION: [facility] ATTENDING PHYSICIAN: Joe Granda M.D. CSN NUMBER: [id number] DATE OF SURGERY/PROCEDURE: 03/31/2023 INCISION/PROCEDURE START TIME: [...] of sleeve leak. SURGEON: Joe Granda M.D. MEN'S GOLF COACH: Joe Abraham. SURGERY/PROCEDURE: Laparoscopic enterolysis. ANESTHESIA: General [...] Monocryl an (more content not included)... Normal [facility] [id number] 03-10-2023 ECG01 Ventricular Rate : 7 5 BPM Atrial Rate : 75 BPM P-R Interval : 172 ms QRS Duration : 96 ms Q-T Interval : 390 ms QTC Calculation(Bazett) : 435 ms Calculated P [place] : 22 degrees Calculated R [place] : 25 degrees Calculated T [place] : 27 degrees NORMAL SINUS RHYTHM NORMAL ECG Confirmed by Penelope Fowler M.D. ([id number]) on 03/13/2023 4:51:16 PM NAME : SUSI ORTIZ PID : [id number] : 1985 Gender : Female Race : [...] JOE GRANDA Acquired by : Winsome viera [facility] HISTORY PHYSICALon 3 HISTORY PHYSICAL HNO ID: [id number] Author: Shruti Alvarado APRN.[employer] Service: ? Author Type: Nurse Practitioner Type: [...] medication comments found. ALLERGIES Allergen Reactions Adhes. Btgn-Eowb-Br* Rash Adhesive Tape-Silic* Rash Augmentin [Amoxicil* Diarrhea Keflex [Cephalexin] Rash, Itching Penicillins Hives Ultram [Tramadol Hc* Itching COVID VACCINATION STATUS: Fully vaccinated REVIEW OF SYSTEMS: PAIN ASSESSMENT: General: No weight loss, malaise or fevers. 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 No neurological symptoms or problems. Positive for Migraines on Inderal Respiratory: Positive for TONEY non compliant with CPAP , Negative for No history of current cough or dyspnea, or pneumonia in the past 6 weeks. No history of respiratory/pulmonary symptoms or problems Cardiovascular: No history of HTN requiring medication, n (more content not included)... Normal [facility] CBC W Auto Differential pane l (Bld)on 01-23-2023 Anisocytosis Ql (Bld) Present Normal [facility] Comment on above: Order Comment: Specimen Type: BLOOD SPEC IMEN Ordering Facility: [facility] Address: [address] [place] [address] Performed By: #### 2 284-8, 2730-8, 2132-02 #### [facility] CLIA [id number] [address] [place] [address] [place] Basophils (Bld) [#/Vol] 0.14 10*3/uL High <0.11 [facility] Comment on above: Order Comment: Specimen Type: BLOOD SPEC IMEN Ordering Facility: [facility] Address: [address] [place] [address] Performed By: #### 2 284-8, 8, 2132-02 #### [facility] CLIA [id number] [address] [place] [address] [place] Basophils/100 WBC (Bld) 1.0 % Normal [facility] Comment on above: Order Comment: Specimen Type: BLOOD SPEC IMEN Ordering Facility: [facility] Address: [address] [place] [address] Performed By: #### 2 284-8, 8, 2132-02 #### [facility] CLIA [id number] [address] [place] [address] [place] Differential cell count method Nom (Bld) Manual Normal [facility] Comment on above: Order Comment: Specimen Type: BLOOD SPEC IMEN Ordering Facility: [facility] Address: [address] [place] [address] Performed By: #### 2 284-8, 2730-8, 2132-02 #### [facility] CLIA [id number] [address] [place] [address] [place] Eosinophils (Bld) [#/Vol] 0.41 10*3/uL Normal <0.46 [facility] Comment on above: Order Comment: Specimen Type: BLOOD SPEC IMEN Ordering Facility: [facility] Address: [address] [place] [address] Performed By: #### 2 284-8, 8, 2132-02 #### [facility] CLIA [id number] [address] [place] [address] [place] Eosinophils/100 WBC (Bld) 3.0 % Normal [facility] Comment on above: Order Comment: Specimen Type: BLOOD SPEC IMEN Ordering Facility: [facility] Address: [address] [place] [address] Performed By: #### 2 284-8, 2731-01, 2132-02 #### [facility] CLIA [id number] [address] [place] [address] [place] Erythrocyte distribution width (RBC) [Ratio] 15.2 % High 11.5-15.0 [facility] Comment on above: Order Comment: Specimen Type: BLOOD SPEC IMEN Ordering Facility: [facility] Address: [address] [place] [address] Performed By: #### 2 284-8, 2731-01, 2132-02 #### [facility] CLIA [id number] [address] [place] [address] [place] Hematocrit (Bld) [Volume fraction] 46.2 % High 36.0-46.0 [facility] Comment on above: Order Comment: Specimen Type: BLOOD SPEC IMEN Ordering Facility: [facility] Address: [address] [place] [address] Performed By: #### 2 284-8, 2731-01, 2132-02 #### [facility] CLIA [id number] [address] [place] [address] [place] Hemoglobin (Bld) [Mass/Vol] 14.5 g/dL Normal 11.5-15.5 [facility] Comment on above: Order Comment: Specimen Type: BLOOD SPEC IMEN Ordering Facility: [facility] Address: [address] [place] [address] Performed By: #### 2 284-8, 8, 2132-02 #### [facility] CLIA [id number] [address] [place] [address] [place] Lymphocytes (Bld) [#/Vol] 5.61 10*3/uL High 1.00-4.00 [facility] Comment on above: Order Comment: Specimen Type: BLOOD SPEC IMEN Ordering Facility: [facility] Address: [address] [place] [address] Performed By: #### 2 284-8, 2731-01, 2132-02 #### [facility] CLIA [id number] [address] [place] [address] [place] Lymphocytes/100 WBC (Bld) 41.0 % Normal [facility] Comment on above: Order Comment: Specimen Type: BLOOD SPEC IMEN Ordering Facility: [facility] Address: [address] [place] [address] Performed By: #### 2 284-8, 2731-01, 2132-02 #### [facility] CLIA [id number] [address] [place] [address] [place] MCH (RBC) [Entitic mass] 28.2 pg Normal 26.0-34.0 [facility] Comment on above: Order Comment: Specimen Type: BLOOD SPEC IMEN Ordering Facility: [facility] Address: [address] [place] [address] Performed By: #### 2 284-8, 8, 2132-02 #### [facility] CLIA [id number] [address] [place] [address] [place] MCHC (RBC) [Mass/Vol] 31.4 g/dL Normal 30.5-36.0 [facility] Comment on above: Order Comment: Specimen Type: BLOOD SPEC IMEN Ordering Facility: [facility] Address: [address] [place] [address] Performed By: #### 2 284-8, 8, 2132-02 #### [facility] CLIA [id number] [address] [place] [address] [place] MCV (RBC) [Entitic vol] 89.9 fL Normal 80.0-100.0 [facility] Comment on above: Order Comment: Specimen Type: BLOOD SPEC IMEN Ordering Facility: [facility] Address: [address] [place] [address] Performed By: #### 2 284-8, 8, 2132-02 #### [facility] CLIA [id number] [address] [place] [address] [place] Monocytes (Bld) [#/Vol] 0.68 10*3/uL Normal <0.87 [facility] Comment on above: Order Comment: Specimen Type: BLOOD SPEC IMEN Ordering Facility: [facility] Address: [address] [place] [address] Performed By: #### 2 284-8, 8, 2132-02 #### [facility] CLIA [id number] [address] [place] [address] [place] Monocytes/100 WBC (Bld) 5.0 % Normal [facility] Comment on above: Order Comment: Specimen Type: BLOOD SPEC IMEN Ordering Facility: [facility] Address: [address] [place] [address] Performed By: #### 2 284-8, 8, 2132-02 #### [facility] CLIA [id number] [address] [place] [address] [place] Neutrophils (Bld) [#/Vol] 6.84 10*3/uL Normal 1.45-7.50 [facility] Comment on above: Order Comment: Specimen Type: BLOOD SPEC IMEN Ordering Facility: [facility] Address: [address] [place] [address] Performed By: #### 2 284-8, 273-8, 2132-02 #### [facility] CLIA [id number] [address] [place] [address] [place] Neutrophils/100 WBC (Bld) 50.0 % Normal [facility] Comment on above: Order Comment: Specimen Type: BLOOD SPEC IMEN Ordering Facility: [facility] Address: [address] [place] [address] Performed By: #### 2 284-8, 273-8, 2132-02 #### [facility] CLIA [id number] [address] [place] [address] [place] Nucleated RBC (Bld) [#/Vol] 10*3/uL Normal <0.01 [facility] Comment on above: Order Comment: Specimen Type: BLOOD SPEC IMEN Ordering Facility: [facility] Address: [address] [place] [address] Performed By: #### 2 284-8, 273-8, 2132-02 #### [facility] CLIA [id number] [address] [place] [address] [place] Nucleated RBC/100 WBC (Bld) [Ratio] 0.0 /100 WBC Normal [facility] Comment on above: Order Comment: Specimen Type: BLOOD SPEC IMEN Ordering Facility: [facility] Address: [address] [place] [address] Performed By: #### 2 284-8, 273-8, 2132-02 #### [facility] CLIA [id number] [address] [place] [address] [place] Platelet mean volume (Bld) [Entitic vol] 10.1 fL Normal 9.0-12.7 [facility] Comment on above: Order Comment: Specimen Type: BLOOD SPEC IMEN Ordering Facility: [facility] Address: [address] [place] [address] Performed By: #### 2 284-8, 273-8, 2132-02 #### [facility] CLIA [id number] [address] [place] [address] [place] Platelets (Bld) [#/Vol] 624 10*3/uL High 150-400 [facility] Comment on above: Order Comment: Specimen Type: BLOOD SPEC IMEN Ordering Facility: [facility] Address: [address] [place] [address] Performed By: #### 2 284-8, 8, 2132-02 #### [facility] CLIA [id number] [address] [place] [address] [place] Platelets Estimate (Bld) [#/Vol] Increased Normal [facility] Comment on above: Order Comment: Specimen Type: BLOOD SPEC IMEN Ordering Facility: [facility] Address: [address] [place] [address] Performed By: #### 2 284-8, 8, 2132-02 #### [facility] CLIA [id number] [address] [place] [address] [place] RBC (Bld) [#/Vol] 5.14 10*6/uL Normal 3.90-5.20 [facility] Comment on above: Order Comment: Specimen Type: BLOOD SPEC IMEN Ordering Facility: [facility] Address: [address] [place] [address] Performed By: #### 2 284-8, 8, 2132-02 #### [facility] CLIA [id number] [address] [place] [address] [place] RED CELL MORPH Reviewed: see result s of individual morphologies Normal [facility] Comment on above: Order Comment: Specimen Type: BLOOD SPEC IMEN Ordering Facility: [facility] Address: [address] [place] [address] Performed By: #### 2 284-8, 8, 2132-02 #### [facility] CLIA [id number] [address] [place] [address] [place] WBC (Bld) [#/Vol] 13.68 10*3/uL High 3.70-11.00 [facility] Comment on above: Order Comment: Specimen Type: BLOOD SPEC IMEN Ordering Facility: [facility] Address: [address] [place] [address] Performed By: #### 2 284-8, 2730-8, 2132-02 #### [facility] CLIA [id number] [address] [place] [address] [place] Comprehensive metabolic 2000 panelon 01-23-2023 Albumin [Mass/Vol] 3.9 g/dL Normal 3.9-4.9 [facility] Comment on above: Order Comment: Specimen Type: BLOOD SPEC IMEN Ordering Facility: [facility] Address: [address] [place] [address] Performed By: #### 2 284-8, 2730-8, 2132-02 #### [facility] CLIA [id number] [address] [place] [address] [place] ALP [Catalytic activity/Vol] 101 U/L Normal 34-123 [facility] Comment on above: Order Comment: Specimen Type: BLOOD SPEC IMEN Ordering Facility: [facility] Address: [address] [place] [address] Performed By: #### 2 284-8, 2730-8, 2132-02 #### [facility] CLIA [id number] [address] [place], [place] [address] [place] ALT [Catalytic activity/Vol] 17 U/L Normal 7-38 [facility] Comment on above: Order Comment: Specimen Type: BLOOD SPEC IMEN Ordering Facility: [facility] Address: [address] [place] [address] Performed By: #### 2 284-8, 2730-8, 2132-02 #### [facility] CLIA [id number] [address] [place] [address] [place] Anion gap [Moles/Vol] 16 mmol/L Normal 9-18 [facility] Comment on above: Order Comment: Specimen Type: BLOOD SPEC IMEN Ordering Facility: [facility] Address: [address] [place] [address] Performed By: #### 2 284-8, 2731-8, 2132-02 #### [facility] CLIA [id number] [address] [place] [address] [place] AST [Catalytic activity/Vol] 33 U/L Normal 13-35 [facility] Comment on above: Order Comment: Specimen Type: BLOOD SPEC IMEN Ordering Facility: [facility] Address: [address] [place] [address] Performed By: #### 2 284-8, 2730-8, 2132-02 #### [facility] CLIA [id number] [address] [place] [address] [place] Bilirubin [Mass/Vol] 0.2 mg/dL Normal 0.2-1.3 [facility] Comment on above: Order Comment: Specimen Type: BLOOD SPEC IMEN Ordering Facility: [facility] Address: [address] [place] [address] Performed By: #### 2 284-8, 2730-8, 2132-02 #### [facility] CLIA [id number] [address] [place] [address] [place] Calcium [Mass/Vol] 10.2 mg/dL Normal 8.5-10.2 [facility] Comment on above: Order Comment: Specimen Type: BLOOD SPEC IMEN Ordering Facility: [facility] Address: [address] [place] [address] Performed By: #### 2 284-8, 273-8, 2132-02 #### [facility] CLIA [id number] [address] [place] [address] [place] Chloride [Moles/Vol] 100 mmol/L Normal 97-105 [facility] Comment on above: Order Comment: Specimen Type: BLOOD SPEC IMEN Ordering Facility: [facility] Address: [address] [place] [address] Performed By: #### 2 284-8, 2730-8, 2132-02 #### [facility] CLIA [id number] [address] [place] [address] [place] CO2 [Moles/Vol] 19 mmol/L Low 22-30 [facility] Comment on above: Order Comment: Specimen Type: BLOOD SPEC IMEN Ordering Facility: [facility] Address: [address] [place] [address] Performed By: #### 2 284-8, 2730-8, 2132-02 #### [facility] CLIA [id number] [address] [place] [address] [place] Creatinine [Mass/Vol] 0.64 mg/dL Normal 0.58-0.96 [facility] Comment on above: Order Comment: Specimen Type: BLOOD SPEC IMEN Ordering Facility: [facility] Address: [address] [place] [address] Performed By: #### 2 284-8, 8, 2132-02 #### [facility] CLIA [id number] [address] [place] [address] [place] ESTIMATED GLOMERULAR FILTRATION RATE 117 mL/min/1.73m??? Normal >=60 [facility] Comment on above: Order Comment: Specimen Type: BLOOD SPEC IMEN Ordering Facility: [facility] Address: [address] [place] [address] Result Comment: Janet mated Glomerular Filtration Rate [...] By: #### 2 284-8, 8, 2132-02 #### [facility] CLIA [id number] [address] [place] [address] [place] Glucose [Mass/Vol] 73 mg/dL Low 74-99 [facility] Comment on above: Order Comment: Specimen Type: BLOOD SPEC IMEN Ordering Facility: [facility] Address: [address] [place] [address] Result Comment: The [place] Diabetes Association (ADA) provides guidance for cutoff [...] Standards of Medical Care in Diabetes 2016, [place] Diabetes Association. Diabetes Care. 2016.39(Suppl 1). Performed By: #### 2 284-8, 2731-01, 2132-02 #### [facility] CLIA [id number] [address] [place] [address] [place] Potassium [Moles/Vol] 4.5 mmol/L Normal 3.7-5.1 [facility] Comment on above: Order Comment: Specimen Type: BLOOD SPEC IMEN Ordering Facility: [facility] Address: [address] [place] [address] Performed By: #### 2 284-8, 2731-01, 2132-02 #### [facility] CLIA [id number] [address] [place] [address] [place] Protein [Mass/Vol] 7.8 g/dL Normal 6.3-8.0 [facility] Comment on above: Order Comment: Specimen Type: BLOOD SPEC IMEN Ordering Facility: [facility] Address: [address] [place] [address] Performed By: #### 2 284-8, 2731-8, 9 #### [facility] CLIA [id number] [address] [place] [address] [place] Sodium [Moles/Vol] 135 mmol/L Low 136-144 [facility] Comment on above: Order Comment: Specimen Type: BLOOD SPEC IMEN Ordering Facility: [facility] Address: [address] [place] [address] Performed By: #### 2 284-8, 2731-8, 9 #### [facility] CLIA [id number] [address] [place] [address] [place] Urea nitrogen [Mass/Vol] 7 mg/dL Normal 7-21 [facility] Comment on above: Order Comment: Specimen Type: BLOOD SPEC IMEN Ordering Facility: [facility] Address: [address] [place] [address] Performed By: #### 2 284-8, 2731-8, 9 #### [facility] CLIA [id number] [address] [place] [address] [place] CNPNon 01-05-2023 CNPN Telephone (BMIJAN) SUSI ORTIZ ([id number]) 1985 F Date Time Provider Department 01/05/23 [...] - Stop all ASA and NSAID products, [place] 3 fish oil, herbal products such as [...] Pt instructed to fax FMLA forms to [phone] and allow 7-10 days for completion. - [...] of Date: 01/05/2023 Noted Allergy Reaction ADHES. [id number] 03/13/2015 2 - Rash ADHESIVE TAPE-SILICONES 05/06/2019 [...] disorder (HCC) (more content not included)... Normal [facility] XR ankle LT min 3V*on 2022 XR ankle LT min 3V* [facility] [employer] Other XR ankle LT min 3V* [facility] [employer] Other XR ankle LT min 3V* [address] [place] [address] [employer] Other XR ankle LT min 3V* [place] [address] [employer] Other XR ankle LT min 3V* XRay Report [employer] Other XR ankle LT min 3V* Signed [employer] Other XR ankle LT min 3V* Patient: Susi Ortiz MR#: M [employer] Other XR ankle LT min 3V* [id number] [employer] Other XR ankle LT min 3V* : 1985 Acct:[id number] [employer] Other XR ankle LT min 3V* Age/Sex: 37 / F ADM Date: 12/13/22 [employer] Other XR ankle LT min 3V* Loc: XDUCLY Room: Type: [facility] [employer] Other XR ankle LT min 3V* Attending Dr: Linda South [employer] Other XR ankle LT min 3V* Copies to: Linda South [facility] [employer] Other XR ankle LT min 3V* Ordering Provider: Linda South APRN [employer] Other XR ankle LT min 3V* Date of Service: 12/13/22 [employer] Other XR ankle LT min 3V* XR/XR ankle LT min 3V*: Acute left ankle pain [employer] Other XR ankle LT min 3V* LEFT ANKLE - 3 views [employer] Other XR ankle LT min 3V* CLINICAL DATA: Patient felt a pop at the ankle while walking this morning. Lateral pain and [employer] [facility] [employer] Other XR ankle LT min 3V* swelling. [employer] Other XR ankle LT min 3V* COMPARISON: LEFT FOOT 11/13/2021 [employer] Other XR ankle LT min 3V* AP, lateral and oblique views were obtained. There is no evidence of fracture or dislocation. [employer] Other XR ankle LT min 3V* The talar dome is intact. Posterior and plantar calcaneal spurs are visualized. There is diffuse [employer] Other XR ankle LT min 3V* soft tissue prominence related to body habitus. [employer] Other XR ankle LT min 3V* XR/XR ankle LT min 3V* [employer] Other XR ankle LT min 3V* IMPRESSION: [employer] Other XR ankle LT min 3V* NO ACUTE BONY FINDINGS. [employer] Other XR ankle LT min 3V* Impression dictated by: Diana Rojas M.D.12/13/2022 10:38 AM [employer] Other XR ankle LT min 3V* Dictation Location: [place] [address] [employer] Other XR ankle LT min 3V* Transcribed By: GENO 12/13/22 1038 [employer] [facility] [employer] Other XR ankle LT min 3V* Dictated By: Diana Rojas MD 12/13/22 1035 [facility] [employer] Other XR ankle LT min 3V* Signed By: [employer] Other XR ankle LT min 3V* 12/13/22 3068 [employer] [facility] [employer] Other XR ankle LT min 3V* [facility] Main [place] [address] [place] [address] XRay Report Signed Patient: Susi Ortiz MR#: [id number] : 1985 Acct:[id number] Age/Sex: 37 / F ADM Date: 12/13/22 Loc: XDUC Room: Type: [facility] Attending Dr: Linda South POLICY CHANGE CLERK Copies to: Linda South APRN Ordering Provider: [...] Diana Rojas M.D.12/13/2022 10:38 AM Dictation Location: [place] [address] Transcribed By: GENO 12/13/22 1038 Dictated By: Diana Rojas MD 12/13/22 1036 Signed By: 12/13/22 1038 [facility] CT HEAD WO CONon 08-19-2022 CT HEAD [...] MANPREET TORRES Date: 2022-08-19 18:23 Normal [facility] VITAMIN B1 (THIAMINE)on 03-29 Vit. B1, Whole Blood 113.1 nmol/L Normal 66.5-200.0 [facility] Comment on above: Performed By: #### FETIBC, VITAD, B12FOL #### [facility] [address] [place] [address] Dr. Gentry Harmon XR foot RT min 3V*on 022 XR foot RT min 3V* [facility] Main [place] [address] [place] [address] XRay Report Signed Patient: Susi Ortiz MR#: Inna [id number] : 1985 Acct:[id number] Age/Sex: 36 / F ADM Date: 04/16/22 Loc: XDUCLY Room: Type: [facility] Attending Dr: Christa JONES Copies to: ROBERT [...] Gt Ventura M.D.04/16/2022 7:09 PM Dictation Location: [place] [address] Transcribed By: [facility] 04/16/221908 Dictated By: Gt Ventura II, MD 04/16/221903 Signed By: 04/16/221908 Normal [facility] XR foot RT min 3V* [facility] [employer] Other XR foot RT min 3V* [facility] Main [place] [employer] Other XR foot RT min 3V* [address] [place] [address] [employer] Other XR foot RT min 3V* [place] [address] [employer] Other XR foot RT min 3V* XRay Report [employer] Other XR foot RT min 3V* Signed [employer] Other XR foot RT min 3V* Patient: Susi Ortiz MR#: M [employer] Other XR foot RT min 3V* [id number] [employer] Other XR foot RT min 3V* : 1985 Acct:[id number] [employer] Other XR foot RT min 3V* Age/Sex: 36 / F ADM Date: 04/16/22 [employer] Other XR foot RT min 3V* Loc: XDUCLY Room: Type: REG I [employer] Other XR foot RT min 3V* Attending Dr: Christa JONES [employer] Other XR foot RT min 3V* Copies to: ROBERT Feliciano [employer] Other XR foot RT min 3V* Ordering Provider: ROBERT Feliciano [employer] Other XR foot RT min 3V* Date of Service: 04/16/22 [employer] Other XR foot RT min 3V* XR/XR foot RT min 3V*: Right foot pain [employer] Other XR foot RT min 3V* XR foot RT min 3V* 04/16/2022 6:45 PM [employer] Other XR foot RT min 3V* SIGNS AND SYMPTOMS: Popping sensation in right foot [employer] Other XR foot RT min 3V* PROTOCOL: Frontal, lateral, and oblique radiographs of the right [employer] Other XR foot RT min 3V* COMPARISON: 11/04/2018 [employer] Other XR foot RT min 3V* FINDINGS: [employer] Other XR foot RT min 3V* The bones are in anatomic alignment. Degenerative changes without evidence of fracture or [facility] [employer] Other XR foot RT min 3V* dislocation. There is diffuse soft tissue swelling. There is plantar and Achilles surface calc [employer] Other XR foot RT min 3V* aneal spurring. Degenerative changes are noted in the talonavicular joint. [employer] Other XR foot RT min 3V* XR/XR foot RT min 3V* [employer] Other XR foot RT min 3V* IMPRESSION: [employer] Other XR foot RT min 3V* No fracture. [employer] Other XR foot RT min 3V* There is diffuse soft tissue swelling which is new. [employer] Other XR foot RT min 3V* Mild degenerative changes are noted at the talonavicular junction with spurring at the plantar and [employer] Other XR foot RT min 3V* Achilles surface of the calcaneus. [employer] Other XR foot RT min 3V* Impression dictated by: Gt Ventura M.D.04/16/2022 7:09 PM [place] [employer] Other XR foot RT min 3V* Dictation Location: [place] [address] [employer] Other XR foot RT min 3V* Transcribed By: [facility] 04/16/221908 [employer] Other XR foot RT min 3V* Dictated By: Gt Ventura II, MD 04/16/221903 [employer] Other XR foot RT min 3V* Signed By: [employer] Other XR foot RT min 3V* 04/16/221908 [employer] Other CBC AUTO DIFFon 04-11-2022 BASO # 0.1 103/ul Normal 0.0-0.1 [facility] Comment on above: Performed By: #### MAI CASTILLO, B12FOL #### [facility] [address] [place] [address] [address] Gentry Harmon Basophils/100 WBC (Bld) 0.5 % Normal 0.2-2.0 [facility] Comment on above: Performed By: #### MAI CASTILLO, B12FOL #### [facility] [address] [place] [address] Dr. Gentry Harmon EO # 0.2 103/ul Normal 0.0-0.7 [facility] Comment on above: Performed By: #### FETIBC, VITAD, B12FOL #### [facility] [address] [place] [address] Dr. Gentry Harmon Eosinophils/100 WBC (Bld) 0.9 % Normal 0.9-7.0 [facility] Comment on above: Performed By: #### FETIBC, VITAD, B12FOL #### [facility] [address] [place] [address] Dr. Gentry Harmon Erythrocyte distribution width (RBC) [Ratio] 14.3 % Normal 11.0-15.0 [facility] Comment on above: Performed By: #### FETIBC, VITAD, B12FOL #### [facility] [address] [place] [address] Dr. Gentry Harmon Hematocrit (Bld) [Volume fraction] 41.9 % Normal 36.0-48.0 [facility] Comment on above: Performed By: #### FETIBC, VITAD, B12FOL #### [facility] [address] [place] [address] Dr. Gentry Harmon Hemoglobin (Bld) [Mass/Vol] 13.4 g/dL Normal 12.0-16.0 [facility] Comment on above: Performed By: #### FETIBC, VITAD, B12FOL #### [facility] [address] [place] [address] Dr. Gentry Harmon IG # 0.06 10e3/ul Critically high 0.00-0.03 [facility] Comment on above: Performed By: #### FETIBC, VITAD, B12FOL #### [facility] [address] [place] [address] Dr. Gentry Harmon IG % 0.3 % Normal 0.0-0.5 [facility] Comment on above: Performed By: #### FETIBC, VITAD, B12FOL #### [facility] [address] [place] [address] Dr. Gentry Harmon LYMPH # 5.9 103/ul Critically high 1.2-3.8 [facility] Comment on above: Performed By: #### FETIBC, VITAD, B12FOL #### [facility] [address] [place] [address] Dr. Gentry Harmon Lymphocytes/100 WBC (Bld) 34.0 % Normal 20.5-60.0 [facility] Comment on above: Performed By: #### FETIBC, VITAD, B12FOL #### [facility] [address] [place] [address] Dr. Gentry Harmon MANUAL DIFF REQ NO Normal [facility] Comment on above: Performed By: #### FETIBC, VITAD, B12FOL #### [facility] [address] [place] [address] Dr. Gentry Harmon MCH (RBC) [Entitic mass] 28.9 pg Normal 26.7-34.0 [facility] Comment on above: Performed By: #### FETIBC, VITAD, B12FOL #### [facility] [address] [place] [address] Dr. Gentry Harmon MCHC (RBC) [Mass/Vol] 32.0 g/dL Normal 29.9-35.2 [facility] Comment on above: Performed By: #### FETIBC, VITAD, B12FOL #### [facility] [address] [place] [address] Dr. Gentry Harmon MCV (RBC) [Entitic vol] 90.3 fL Normal 81.0-99.0 [facility] Comment on above: Performed By: #### FETIBC, VITAD, B12FOL #### [facility] [address] [place] [address] Dr. Gentry Harmon MONO # 1.3 103/ul Critically high 0.3-0.8 [facility] Comment on above: Performed By: #### FETIBC, VITAD, B12FOL #### [facility] [address] [place] [address] Dr. Gentry Harmon Monocytes/100 WBC (Bld) 7.8 % Normal 1.7-12.0 [facility] Comment on above: Performed By: #### FETIBC, VITAD, B12FOL #### [facility] [address] [place] [address] [address] Gentry Harmon NEUT # 9.8 103/ul Critically high 1.4-6.5 [facility] Comment on above: Performed By: #### FETIBC, VITAD, B12FOL #### [facility] [address] [place] [address] [address] Gentry Harmon Neutrophils/100 WBC (Bld) 56.5 % Normal 43.0-75.0 [facility] Comment on above: Performed By: #### FETIBC, VITAD, B12FOL #### [facility] [address] [place] [address] [address] Gentry Harmon Platelet mean volume (Bld) [Entitic vol] 9.3 fL Critically low 9.5-13.5 [facility] Comment on above: Performed By: #### FETIBC, VITAD, B12FOL #### [facility] [address] [place] [address] [address] Gentry Harmon PLT 522 103/ul Critically high 150-450 [facility] Comment on above: Performed By: #### FETIBC, VITAD, B12FOL #### [facility] [address] [place] [address] [address] Gentry Harmon RBC 4.64 106/ul Normal 4.20-5.40 [facility] Comment on above: Performed By: #### FETIBC, VITAD, B12FOL #### [facility] [address] [place] [address] [address] Gentry Harmon WBC 17.3 103/ul Critically high 4.0-11.0 [facility] Comment on above: Performed By: #### FETIBC, VITAD, B12FOL #### [facility] [address] [place] [address] [address] Gentry Harmon IRON AND TIBCon 04-11-2022 % SATURATION 15.7 % Normal [facility] Comment on above: Performed By: #### FETIBC, VITAD, B12FOL #### [facility] [address] [place] [address] Dr. Gentry Harmon Iron [Mass/Vol] 58.0 ug/dL Normal 50.0-170.0 [facility] Comment on above: Performed By: #### FETIBC, VITAD, B12FOL #### [facility] [address] [place] [address] Dr. Gentry Harmon TIBC DIRECT 369.0 ug/dL Normal 250.0-450. 0 [facility] Comment on above: Performed By: #### FETIBC, VITAD, B12FOL #### [facility] [address] [place] [address] Dr. Gentry Harmon PREALBUMINon 04-11-2022 Prealbumin [Mass/Vol] 27.8 mg/dL Normal 20.9-45.5 [facility] Comment on above: Performed By: #### CMP, PREALB #### [facility] [address] [place] [address] Dr. Gentry Harmon PROF 14(COMP METB)on 022 Albumin [Mass/Vol] 3.3 g/dL Critically low 3.4-5.0 [facility] Comment on above: Performed By: #### CMP, PREALB #### [facility] [address] [place] [address] Dr. Gentry Harmon Albumin/Globulin [Mass ratio] 0.8 {ratio} Normal [facility] Comment on above: Performed By: #### CMP, PREALB #### [facility] [address] [place] [address] Dr. Gentry Harmon ALP [Catalytic activity/Vol] 89 U/L Normal 46-116 [facility] Comment on above: Performed By: #### CMP, PREALB #### [facility] [address] [place] [address] Dr. Gentry Harmon ALT [Catalytic activity/Vol] 16 U/L Normal 14-59 [facility] Comment on above: Performed By: #### CMP, PREALB #### [facility] [address] [place] [address] [address] Gentry Harmon Anion gap [Moles/Vol] 11.3 mmol/L Normal [facility] Comment on above: Performed By: #### CMP, PREALB #### [facility] [address] [place] [address] [address] Gentry Harmon AST [Catalytic activity/Vol] 11 U/L Critically low 15-37 [facility] Comment on above: Performed By: #### CMP, PREALB #### [facility] [address] [place] [address] [address] Gentry Harmon Bilirubin [Mass/Vol] 0.1 mg/dL Critically low 0.2-1.0 [facility] Comment on above: Performed By: #### CMP, PREALB #### [facility] [address] [place] [address] [address] Gentry Harmon Calcium [Mass/Vol] 8.8 mg/dL Normal 8.5-10.1 [facility] Comment on above: Performed By: #### CMP, PREALB #### [facility] [address] [place] [address] [address] Gentry Harmon Chloride [Moles/Vol] 103 mmol/L Normal 98-107 [facility] Comment on above: Performed By: #### CMP, PREALB #### [facility] [address] [place] [address] [address] Gentry Harmon CO2 [Moles/Vol] 25.6 mmol/L Normal 21.0-32.0 [facility] Comment on above: Performed By: #### CMP, PREALB #### [facility] [address] [place] [address] [address] Gentry Harmon Creatinine [Mass/Vol] 0.81 mg/dL Normal 0.55-1.02 [facility] Comment on above: Performed By: #### CMP, PREALB #### [facility] [address] [place] [address] [address] Gentry Harmon EGFR-AF MOLDOVAN >60 Normal >=60 [facility] Comment on above: Performed By: #### CMP, PREALB #### [facility] [address] [place] [address] [address] Gentry Harmon EGFR-NON AF MOLDOVAN >60 Normal >=60 [facility] Comment on above: Performed By: #### CMP, PREALB #### [facility] [address] [place] [address] [address] Gentry Harmon Globulin (S) [Mass/Vol] 4.4 g/dL Normal [facility] Comment on above: Performed By: #### CMP, PREALB #### [facility] [address] [place] [address] [address] Gentry Harmon Glucose [Mass/Vol] 101 mg/dL Normal 74-106 [facility] Comment on above: Performed By: #### CMP, PREALB #### [facility] [address] [place] [address] [address] Gentry Harmon Potassium [Moles/Vol] 3.9 mmol/L Normal 3.5-5.1 [facility] Comment on above: Performed By: #### CMP, PREALB #### [facility] [address] [place] [address] [address] Gentry Harmon Protein [Mass/Vol] 7.7 g/dL Normal 6.4-8.2 [facility] Comment on above: Performed By: #### CMP, PREALB #### [facility] [address] [place] [address] [address] Gentry Harmon Sodium [Moles/Vol] 136 mmol/L Normal 136-145 [facility] Comment on above: Performed By: #### CMP, PREALB #### [facility] [address] [place] [address] [address] Gentry Harmon Urea nitrogen [Mass/Vol] 10.0 mg/dL Normal 7.0-18.0 [facility] Comment on above: Performed By: #### CMP, PREALB #### [facility] [address] [place] [address] [address] Gentry Harmon Urea nitrogen/Creatin ine [Mass ratio] 12.3 mg/mg Normal [facility] Comment on above: Performed By: #### CMP, PREALB #### [facility] [address] [place] [address] [address] Gentry Harmon VIT B12 AND FOLATEon 022 Cobalamin (Vitamin B12) [Mass/Vol] 226.0 pg/mL Normal 193.0-986. 0 [facility] Comment on above: Performed By: #### FETIBC, VITAD, B12FOL #### [facility] [address] [place] [address] [address] Gentry Harmon FOLATE 3.20 ng/mL Critically low 8.60-58.90 [facility] Comment on above: Performed By: #### FETIBC, VITAD, B12FOL #### [facility] [address] [place] [address] Dr. Gentry Harmon VITAMIN D 25 OHon 04-11-2022 VIT D 25-OH 23.6 ng/mL Normal [facility] Comment on above: Performed By: #### FETIBC, VITAD, B12FOL #### [facility] [address] [place] [address] Dr. Gentry Harmon VIT D RANGES SEE BELOW Normal [facility] Comment on above: Result Comment: <20 ng/mL Vit D deficien t 20 - <30 ng/mL Vit D insufficient 30 - 100 ng/mL Vit D sufficient >100 ng/mL Potential Toxicity Performed By: #### F ETIBC, VITAD, B12FOL #### [facility] [address] [place] [address] Dr. Gentry Harmon XR LSPINE 2_3 VIEWSon [...] by: ESTELLA ALVES Date: 2022-04-01 19:[address] [facility] [address] ABD/PEL W IVCONon 022 CT ABD/PEL W IVCON * * *Final Report* * * DATE OF EXAM: Feb 12 2022 2:57PM [facility] 0530 - CT ABD/PEL W IVCON [...] lesions. Lower thorax: Lower lungs are clear. Chauffeur (topogram) images: Unremarkable. IMPRESSION: No acute process in the abdomen or pelvis. Migratory Farm Hand: PSCB Transcribe Date/Time: Feb 12 2022 3:04P Dictated by : MARIELA GRECO MD This examination was interpreted and the report reviewed and electronically signed by: MARIELA GRECO MD on Feb 12 2022 3:19PM EST [id number] Normal [facility] NURSING PROGon 08-17-2022 NURSING PROG HNO ID: [id number] Author: Elizabeth Stephens RN Service: Radiology Author [...] SIGNATURE: Elizabeth Stephens RN PATIENT NAME: Susi Naqvi Ortiz DATE: February 12, 2022 TIME: 2:30 PM [facility] ANES POSTPROC EVALon 022 ANES POSTPROC EVAL HNO ID: [id number] Author: Carolina Pink MD Service: Anesthesiology Author [...] Granda MD; Carolina Pink MD; Sami Murcia APRN.BODY SHOP MECHANIC Responsible Provider: Carolina Pink MD Anesthesia Type: [...] December 18, 2021 TIME: 3:11 PM CSN: [id number] [facility] ANES PRE-OPon 12-18-2021 ANES PRE-OP HNO ID: [id number] Author: Carolina Pnik MD Service: Anesthesiology Author Type: Physician Type: Anesthesia Preprocedure Evaluation Filed: 12/18/2021 11:23 AM Note Text: ANESTHESIOLOGY DAY OF SURGERY NOTE : 1985 Procedure Information Date/Time: 12/18/21 1115 Scheduled providers: Joe Granda MD; Carolina Pink MD; Sami Murcia APRN.BODY SHOP MECHANIC Procedure: EGD DIAGNOSTIC Location: Procedures Estimated body [...] December 18, 2021 TIME: 11:22 AM CSN: [id number] [facility] EGD DIAGNOSTICon 12-18-2021 [facility] Upper GI endoscopyon 022 Upper GI endoscopy [facility] Gastrointestinal Endoscopy Patient Name: Susi Ortiz [...] by the physician, the nurse and the carding doubler in the pre-procedure area in the endoscopy [...] previously scheduled. Procedure Code(s): --- Professional --- 08437, Esophagogastroduodenoscopy, flexible, transoral; diagnostic, including collection of specimen(s) by brushing or washing, when performed (separate procedure) Diagnosis Code(s): --- Professional --- Z98.84, Bariatric surgery status R10.13, Epigastric pain R12, Heartburn K95.89, Other complications of other bariatric procedure CPT copyright 2019 [employer]. All rights reserved. The codes documented in this report are preliminary and upon warehouse insulation worker review may be revised to meet current compliance requirements. Attending Participation: I personally performed the entire procedure. Scope In: 12:23:05 PM Scope Out: 12:26:48 PM MD Joe Gomez MD 12/18/2021 12:32:03 PM This report has been signed electronically by Joe Granda MD Number of Addenda: 0 Note Initiated On: 12/18/2021 12:11 PM Estimated Blood Loss: Estimated blood loss: none. Normal [facility] HISTORY PHYSICALon HISTORY PHYSICAL HNO ID: [id number] Author: Melissa Olivas PA-C Service: ? Author Type: Physician Tobacco Stripper Hand Type: HANDP Filed: 12/10/2021 1:13 PM Note Text: HISTORY AND PHYSICAL EXAMINATION SERVICE DATE: 12/05/2021 SERVICE TIME: 1:12 PM PRIMARY CARE PHYSICIAN: Geneva Estrada, SAW CLEANER, SAW CLEANER This is a virtual visit using alternative video platform. It required patient-provider interaction for the medical decision making as documented below. REASON FOR VISIT: Susi rOtiz is a 36 year old female who [...] Negative for: dysuria, frequent urination and hematuria. COMPANY LABORER: +amenorrhea with IUD Endocrine: Negative for: diabetes [...] daily. Takin (more content not included)... Normal [facility] XR foot LT min 3V*on 022 XR foot LT min 3V* [facility] [employer] Other XR foot LT min 3V* [facility] [employer] Other XR foot LT min 3V* [address] [place] [address] [employer] Other XR foot LT min 3V* [place] [address] [employer] Other XR foot LT min 3V* XRay Report [employer] Other XR foot LT min 3V* Signed [employer] Other XR foot LT min 3V* Patient: Susi Ortiz MR#: M [employer] Other XR foot LT min 3V* [id number] [employer] Other XR foot LT min 3V* : 1985 Acct:[id number] [employer] Other XR foot LT min 3V* Age/Sex: 36 / F ADM Date: 11/13/21 [employer] Other XR foot LT min 3V* Loc: XDUCLY Room: Type: [facility] [employer] Other XR foot LT min 3V* Attending Dr: Christa JONES [employer] Other XR foot LT min 3V* Ordering Provider: ROBERT Feliciano [employer] Other XR foot LT min 3V* Date of Service: 11/13/21 [employer] Other XR foot LT min 3V* XR/XR foot LT min 3V*: Left foot pain [employer] Other XR foot LT min 3V* Copies to: ROBERT Feliciano [employer] Other XR foot LT min 3V* Left foot 11/13/2021. [employer] Other XR foot LT min 3V* CLINICAL DATA: Left foot pain. [facility] [employer] Other XR foot LT min 3V* FINDINGS: 3 views of the left foot were obtained and are compared with a prior study 03/21/2019. [employer] Other XR foot LT min 3V* No acute fracture or dislocation is identified. There is calcaneal spurring. No other bony [employer] Other XR foot LT min 3V* abnormality is seen. No localized soft tissue swelling is noted. [employer] Other XR foot LT min 3V* XR/XR foot LT min 3V* [employer] Other XR foot LT min 3V* IMPRESSION: Calcaneal spurring. No acute bony abnormality. [employer] Other XR foot LT min 3V* Impression dictated by: Pawan Gallardo Jr., M.D.11/13/2021 11:30 AM [employer] Other XR foot LT min 3V* Dictation Location: [place] [address] [employer] Other XR foot LT min 3V* Transcribed By: GENO 11/13/21 1130 [employer] Other XR foot LT min 3V* Dictated By: Pawan Gallardo Jr, MD 11/13/21 1127 [employer] Other XR foot LT min 3V* Signed By: [employer] Other XR foot LT min 3V* 11/13/21 1130 [employer] Other GRAPHITE MILL OPERATOR - Office Visiton 04 GRAPHITE MILL OPERATOR - Office Visit Diagnoses/Problems Assessed Adnexal mass (625.8) (N94.89) Pelvic pain (R10.2) Orders Alpha Fetoprotein, Serum; Status:Active; Requested for:77Ukv5439; Cancer Antigen, 125; Status:Active; Requested for:54Uwc7422; Cancer Antigen, GI Ca 19-9; Status:Active; Requested for:00Vlg5671; Carcinoembryonic Antigen; Status:Active; Requested for:12Smq6128; HCG, Beta Quantitative; Status:Active; Requested for:11Xvx8579; LDH; Status:Active; Requested for:92Via8714; IO Ultrasound, pelvic complete; Status:Hold For - [...] options and next steps. 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 Cherri Horvath MD [facility] [phone] [place] [phone] [place] Provider Impressions Susi is a 36-year-old female [...] options and next steps. 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 Cherri Horvath MD [facility] [phone] [place] [phone] [place] Appointment Duration:. 45 minutes; greater than half [...] Cyst on Right Ovary. History of Present Isblrfn7609/30/2021 9:15AM SUSI ORTIZ , 36 year is contacted for an (audio-visual, or audio only) Telehealth visit. Today's visit was provided through telemedicine conferencing: Using [employer] platform. Consent: The concept of telemedicine? has [...] She went in for evaluation with her GRAPHITE MILL OPERATOR in early January 2021, and was subsequently found to have a complex ovarian cyst. She was taken (more content not included)... Normal [employer] Tobacco Screening.on 022 Fall risk assessment a) No falls within the last year AO-YJJGS-Zeng ker 206A IVF Work Phone: Last menstrual period start date MIRENA MA-GKTKZ-Dduc ker 206A IVF Work Phone: Tobacco use status [facility] b) No UE-XRRUA-Kvjj ker 206A IVF Work Phone: POCT urine pregnancyon 04-06 Beta HCG ( test) Ql (U) Negative NEGATIVE [place], [place] Comment on above: Specimens with hCG levels near the thres hold of the test (25 mIU/mL) may give a negative or indeterminate result. In such cases, another test should be performed with a new specimen in 48-72 hours. If early is suspected clinically in this setting, correlation with quantitative serum b-hCG level is suggested. [place] [address] Surgical Pathologyon 020 Surgical Pathology (NOTE) -- [...] BIOPSY TO RULE OUT H. PYLORI STAIN Bowdens-johnson tissue fragments, each 0.2 x 0.2 x [...] PATHOLOGY CONSULTATION Patient Name: SUSI ORTIZ Rec: [id number] Path Number: [id number] [facility] ANATOMIC PATHOLOGY [address] [place] [id number] Normal [facility] Comment on above: Performed By: #### PPPVS #### [address] [address] Outside Plant Supervisor: Tito Balderrama MD [id number] 04-04-2020 SARS-CoV-2 Not Detected Normal Not Detected [facility] Comment on above: Result Comment: (NOTE) This nucleic acid amplification test was developed and its performance characteristics determined by [employer]. Nucleic acid amplification tests include PCR and [...] detected) result in this assay. Performed At: [facility] [address] [facility], [place] [id number] You Naqvi MD Ph:[phone] Performed By: #### A COV #### [facility] [address] [place] [address] Outside Plant Supervisor: Olivier Espinosa MD Covid-19 Ambulatoryon 2019 SARS-CoV-2, ASH Not Detected Not Detected [place], [place] Comment on above: (NOTE) This nucleic acid amplification test was developed and its performance characteristics determined by [facility]. Nucleic acid amplification tests include PCR and [...] detected) result in this assay. Performed At: [facility] [address] [facility] [place] [id number] You Naqvi MD Ph:[phone] Drug Scr,Pain Mgmt Uon 01-09 7-Aminoclonazep, Ur Not Detected Normal [facility] Comment on above: Performed By: #### ADAUPM ####[place] [address] [facility] [place] [address] Acetaminophen mass conc Not Detected Normal [facility] Comment on above: Performed By: #### ADAUPM ####[place] [address] [facility] [place] [address] Ekhxp-OI-Txdctd, Ur Not Detected Normal [facility] Comment on above: Performed By: #### ADAUPM ####[address] [place] [address] Alprazolam, Ur Not Detected Normal [facility] Comment on above: Performed By: #### ADAUPM ####[facility] [facility] [place] [address] Amphetamine, Ur Not Detected Normal [facility] Comment on above: Performed By: #### ADAUPM ####[facility] [place] [address] [place] [address] Barbiturates, Ur Not Detected Normal [facility] Comment on above: Performed By: #### ADAUPM ####[facility] [place] [address] [place] [address] Benzoylecgonine, Ur Not Detected Normal [facility] Comment on above: Performed By: #### ADAUPM ####[facility] [place] [address] [place] [address] Buprenorphine, Ur Not Detected Normal [facility] Comment on above: Performed By: #### ADAUPM ####[facility] [place] [address] [place] [address] Carisoprodol, Ur Not Detected Normal [facility] Comment on above: Result Comment: (NOTE)The carisoprodol i mmunoassay has cross-reactivity to carisoprodoland meprobamate. Performed By: #### A DAUPM ####[facility] [place] [address] [place] [address] Clonazepam, Ur Not Detected Normal [facility] Comment on above: Performed By: #### ADAUPM ####[facility] [place] [address] [place] [address] Codeine, Ur Not Detected Normal [facility] Comment on above: Performed By: #### ADAUPM ####[facility] [place] [address] Creatinine 52.1 mg/dL Normal 20.0-400.0 [facility] Comment on above: Performed By: #### ADAUPM ####[facility] [place] [address] Diazepam, Ur Not Detected Normal [facility] Comment on above: Performed By: #### ADAUPM ####[address] [address] EER Hi Res Interp Ur See Note Normal [facility] Comment on above: Result Comment: (NOTE)Access [employer] ed Report using either link below:-Direct access: [email or web address] Username, Password: [email or web address]://BrandMakerUsername: [email or web address] by [employer],[address] [place] [id number] yqd.[employer], Ari Lowe MD, Lab. DirectorPerformed at [facility] [address] [place] [address] Performed By: #### A DAUPM ####[facility] [place] [address] Fentanyl, Ur Not Detected Normal [facility] Comment on above: Performed By: #### ADAUPM ####[address] [address] Glucose mass conc Not Detected Normal [facility] Comment on above: Performed By: #### ADAUPM ####[address] [address] Hydrocodone, Ur Not Detected Normal [facility] Comment on above: Performed By: #### ADAUPM ####[facility] [facility] [place] [address] Hydromorphone, Ur Not Detected Normal [facility] Comment on above: Performed By: #### ADAUPM ####[facility] [place] [address].[place] [address] Lorazepam, Ur Not Detected Normal [facility] Comment on above: Performed By: #### ADAUPM ####[facility] [place] [address] [place] [address] Marijuana Metab, Ur Not Detected Normal [facility] Comment on above: Performed By: #### ADAUPM ####[address] [address] MDA, Ur Not Detected Normal [facility] Comment on above: Performed By: #### ADAUPM ####[facility] [place] [address] [place] [address] MDEA, Terra, Ur Not Detected Normal [facility] Comment on above: Performed By: #### ADAUPM ####[address] [address] MDMA, Ecstasy, Ur Not Detected Normal [facility] Comment on above: Performed By: #### ADAUPM ####[facility] [place] [address] [place] [address] Meperidine metab, Ur Not Detected Normal [facility] Comment on above: Performed By: #### ADAUPM ####[address] [place] [address] Methadone, Ur Not Detected Normal [facility] Comment on above: Performed By: #### ADAUPM ####[address] [place] [address] Methamphetamine, Ur Not Detected Normal [facility] Comment on above: Performed By: #### ADAUPM ####[facility] [place] [address] [place] [address] Methylphenidate Not Detected Normal [facility] Comment on above: Performed By: #### ADAUPM ####[facility] [place] [address] [place] [address] Midazolam, Ur Not Detected Normal [facility] Comment on above: Performed By: #### ADAUPM ####[address] [place] [address] Morphine, Ur Not Detected Normal [facility] Comment on above: Performed By: #### ADAUPM ####[address] [place] [address] Norbuprenorphine , Ur Not Detected Normal [facility] Comment on above: Performed By: #### ADAUPM ####[address] [place] [address] Nordiazepam, Ur Not Detected Normal [facility] Comment on above: Performed By: #### ADAUPM ####[address] [place] [address] Norfentanyl, Ur Not Detected Normal [facility] Comment on above: Performed By: #### ADAUPM ####[address] [place] [address] Norhydrocodone, Ur Not Detected Normal [facility] Comment on above: Performed By: #### ADAUPM ####[address] [place] [address] Noroxycodone, Ur Not Detected Normal [facility] Comment on above: Performed By: #### ADAUPM ####[facility] [facility] [place] [address] Noroxymorphone, Ur Not Detected Normal [facility] Comment on above: Performed By: #### ADAUPM ####[facility] [facility] [place] [address] Oxazepam, Ur Not Detected Normal [facility] Comment on above: Performed By: #### ADAUPM ####[facility] [facility] [place] [address] Oxycodone, Ur Not Detected Normal [facility] Comment on above: Performed By: #### ADAUPM ####[facility] [facility] [place] [address] Oxymorphone, Ur Not Detected Normal [facility] Comment on above: Performed By: #### ADAUPM ####[facility] [facility] [place] [address] [address]g Handley, Ur See Below Normal [facility] Comment on above: Result Comment: (NOTE)Methodology: [...] was developed and its performance characteristicsdetermined by [employer]. The U.S. Food and DrugAdministration has not approved or cleared this test; however, FDAclearance or approval is not currently required for clinical use.The results are not intended to be used as the sole means forclinical diagnosis or patient management decisions. Performed By: #### A DAUPM ####[facility] [place] [address] PCP, Ur Not Detected Normal [facility] Comment on above: Performed By: #### ADAUPM ####[facility] [place] [address] Phentermine, Ur Not Detected Normal [facility] Comment on above: Performed By: #### ADAUPM ####[facility] [place] [address] Pn Mg Drg Handley Int Ur Consistent Normal [facility] Comment on above: Result Comment: (NOTE) _DRUGS EXPECTED:NO DRUGS EXPECTED ___CONSISTENT with medications provided:NO DRUGS DETECTED ___INTERPRETIVE INFORMATION:Pain Mgt Handley, High Res/EMIT, Ur, InterpInterpretation depends on accuracy and completeness of patientmedication information submitted by client. Performed By: #### A DAUPM ####[address] [address] Propoxyphene, Ur Not Detected Normal [facility] Comment on above: Performed By: #### ADAUPM ####[address] [address] Tapentadol o Sul, Ur Not Detected Normal [facility] Comment on above: Performed By: #### ADAUPM ####[address] [address] Tapentadol, Ur Not Detected Normal [facility] Comment on above: Performed By: #### ADAUPM ####[address] [address] Temazepam, Ur Not Detected Normal [facility] Comment on above: Performed By: #### ADAUPM ####[address] [address] Tramadol, Ur Not Detected Normal [facility] Comment on above: Performed By: #### ADAUPM ####[address] [address] Zolpidem, Ur Not Detected Normal [facility] Comment on above: Performed By: #### ADAUPM ####[address] [address] Drug Scr,Pain Mgmt Uon 01-06 Drugs Expected, Ur NONE Normal [facility] Comment on above: Performed By: #### ADAUPM ####[address] [address] Vital Signs Date Time Vital Sign Value Performing Clinician Facility 11-03-2023 10:45-0400 Body mass index (BMI) [Ratio] 63.34 kg/m2 Amina Nieto MD Work Phone: [facility] 11-03-2023 10:45-0400 Body weight 167.38 kg Amina Nieto MD Work Phone: [facility] 11-02-2023 12:53-0400 Body mass index (BMI) [Ratio] 63.34 kg/m2 Jayshree Huffman APRN.SAW CLEANER Work Phone: [facility] 11-02-2023 12:53-0400 Body weight 167.38 kg Jayshree Huffman APRN.SAW CLEANER Work Phone: [facility] 11-02-2023 10:22-0400 Body height 162.[address] Work Phone: [facility] 11-02-2023 10:22-0400 Body mass index (BMI) [Ratio] 63.48 kg/m2 Rupinder Sayra RD Work Phone: [facility] 11-02-2023 10:22-0400 Body weight 167.[address] Work Phone: [facility] Comment on above: verbal 09-07-2023 09:30-0400 Body height 162.6 cm Jayshree Huffman APRN.SAW CLEANER Work Phone: [facility] 09-07-2023 09:30-0400 Body temperature 98.01 [degF] Jayshree Huffman APRN.SAW CLEANER Work Phone: [facility] 09-07-2023 09:30-0400 Body weight 169.87 kg Jayshree Huffman APRN.SAW CLEANER Work Phone: [facility] 09-07-2023 09:30-0400 Diastolic blood pressure 81 mm[Hg] Jayshree Huffman APRN.SAW CLEANER Work Phone: [facility] 09-07-2023 09:30-0400 Heart rate 80 /min Jayshree Huffman APRN.SAW CLE[employer]ER Work Phone: [facility] 09-07-2023 09:30-0400 Systolic blood pressure 107 mm[Hg] Jayshree Huffman POLICY CHANGE CLERK.SAW CLEANER Work Phone: [facility] 08-31-2023 12:07-0500 Body height 162.[address] Work Phone: [facility] 08-31-2023 12:07-0500 Body weight 164.[address] Work Phone: [facility] 08-19-2023 12:14-0500 Body height 162.[address] Work Phone: [facility] 08-19-2023 12:14-0500 Body weight 167.[address] Work Phone: [facility] 08-17-2023 09:52-0500 Body height 162.6 cm Jayshree Huffman POLICY CHANGE CLERK.SAW CLEANER Work Phone: [facility] 08-17-2023 09:52-0500 Body temperature 97.3 [degF] Jayshree Huffman POLICY CHANGE CLERK.SAW CLEANER Work Phone: [facility] 08-17-2023 09:52-0500 Body weight 167.8 kg Jayshree Huffman APRN.SAW CLEANER Work Phone: [facility] 08-17-2023 09:52-0500 Diastolic blood pressure 75 mm[Hg] Jayshree Huffman APRN.SAW CLEANER Work Phone: [facility] 08-17-2023 09:52-0500 Heart rate 75 /min Jayshree Huffman APRN.SAW CLEANER Work Phone: [facility] 08-17-2023 09:52-0500 SaO2% (BldA) [Mass fraction] 97 % Jayshree Huffman POLICY CHANGE CLERK.SAW CLEANER Work Phone: [facility] 08-17-2023 09:52-0500 Systolic blood pressure 117 mm[Hg] Jayshree Huffman POLICY CHANGE CLERK.SAW CLEANER Work Phone: [facility] 03-10-2023 13:33-0400 Body height 162.6 cm Pacc 2 Work Phone: [facility] 03-10-2023 13:33-0400 Body temperature 97 [degF] Pacc 2 Work Phone: [facility] 03-10-2023 13:33-0400 Body weight 181.44 kg Pacc 2 Work Phone: [facility] 03-10-2023 13:33-0400 Diastolic blood pressure 66 mm[Hg] Pacc 2 Work Phone: [facility] 03-10-2023 13:33-0400 Heart rate 73 /min Pacc 2 Work Phone: [facility] 03-10-2023 13:33-0400 Respiratory rate 16 /min Pacc 2 Work Phone: [facility] 03-10-2023 13:33-0400 SaO2% (BldA) [Mass fraction] 97 % Pacc 2 Work Phone: [facility] 03-10-2023 13:33-0400 Systolic blood pressure 138 mm[Hg] Pacc 2 Work Phone: [facility] 03-05-2023 12:54-0400 Body height [address] Work Phone: [facility] 12-15-2022 15:09-0400 Body height [address] Work Phone: [facility] 12-15-2022 15:09-0400 Body weight 174.[address] Work Phone: [facility] 12-13-2022 09:30-0400 Body height 162.56 cm Linda South Other [facility] Other 12-13-2022 09:30-0400 Body mass index (BMI) [Ratio] 66.08 kg/m2 Linda South Other [facility] Other 12-13-2022 09:30-0400 Body temperature 98.2 [degF] Linda South Other [facility] Other 12-13-2022 09:30-0400 Body weight 174.64 kg Linda South Other [facility] Other 12-13-2022 09:30-0400 Respiratory rate 18 /min Linda Zhangley Other [facility] Other 12-13-2022 09:30-0400 SaO2% (BldA) [Mass fraction] 96 % Linda South Other [facility] Other 06-04-2022 11:04-0500 Body weight 185.07 kg Amina Nieto MD Work Phone: [facility] 04-16-2022 19:25-0400 Body height 162.56 cm Christa Aguilarmond Other [facility] Other 04-16-2022 19:25-0400 Body mass index (BMI) [Ratio] 60.07 kg/m2 Christa Aguilarmond Other [facility] Other 04-16-2022 19:25-0400 Body temperature 98.6 [degF] Christa Nayeli Other [facility] Other 04-16-2022 19:25-0400 Body weight 158.76 kg Christa Aguilarmond Other [facility] Other 04-16-2022 19:25-0400 Respiratory rate 18 /min Christa Nayeli Other [facility] Other 04-16-2022 19:25-0400 SaO2% (BldA) [Mass fraction] 97 % Christa Tyler Other [facility] Other 01-17-2022 09:12-0400 Body height [address] Work Phone: [facility] 01-17-2022 09:12-0400 Body weight 179.[address] Work Phone: [facility] 12-18-2021 12:45-0400 Diastolic blood pressure 103 mm[Hg] Joe Granda MD Work Phone: [facility] 12-18-2021 12:45-0400 SaO2% (BldA) [Mass fraction] 100 % Joe Granda MD Work Phone: [facility] 12-18-2021 12:45-0400 Systolic blood pressure 123 mm[Hg] Joe Granda MD Work Phone: [facility] 12-18-2021 12:34-0400 Body temperature 96.91 [degF] Joe Granda MD Work Phone: [facility] 12-18-2021 12:34-0400 Heart rate 106 /min Joe Granda MD Work Phone: [facility] 12-18-2021 12:34-0400 Respiratory rate 20 /min Joe Granda MD Work Phone: [facility] 11-13-2021 11:30-0400 Body height 162.56 cm Christa Tyler Other [facility] Other 11-13-2021 11:30-0400 Body mass index (BMI) [Ratio] 68.65 kg/m2 Christa Tyler Other [facility] Other 11-13-2021 11:30-0400 Body temperature 98.3 [degF] Christa Tyler Other [facility] Other 11-13-2021 11:30-0400 Body weight 181.44 kg Christa Tyler Other [facility] Other 11-13-2021 11:30-0400 Diastolic blood pressure 77 mm[Hg] Christa Tyler Other [facility] Other 11-13-2021 11:30-0400 Respiratory rate 18 /min Christa Tyler Other [facility] Other 11-13-2021 11:30-0400 SaO2% (BldA) [Mass fraction] 100 % Christa Tyler Other [facility] Other 11-13-2021 11:30-0400 Systolic blood pressure 125 mm[Hg] Christa Tyler Other [facility] Other 11-04-2021 12:44-0400 Body height [address] Work Phone: [facility] 11-04-2021 12:44-0400 Body weight 184.[address] Work Phone: [facility] 11-04-2021 11:13-0400 Body height 160 cm Joe Granda MD Work Phone: [facility] 11-04-2021 11:13-0400 Body weight 184.61 kg Joe Granda MD Work Phone: [facility] 11-04-2021 11:13-0400 Diastolic blood pressure 74 mm[Hg] Joe Granda MD Work Phone: [facility] 11-04-2021 11:13-0400 Heart rate 86 /min Joe Granda MD Work Phone: [facility] 11-04-2021 11:13-0400 Systolic blood pressure 133 mm[Hg] Joe Granda MD Work Phone: [facility] 10-11-2021 14:45-0400 Body height 162.56 cm Bambi Gonzalez Other [facility] Other 10-11-2021 14:45-0400 Body mass index (BMI) [Ratio] 64.36 kg/m2 Bambi Gonzalez Other [facility] Other 10-11-2021 14:45-0400 Body temperature 97.3 [degF] Bambi Gonzalez Other [facility] Other 10-11-2021 14:45-0400 Body weight 170.1 kg Bambi Gonzalez Other [facility] Other 10-11-2021 14:45-0400 Respiratory rate 26 /min Bambi Gonzalez Other [facility] Other 10-11-2021 14:45-0400 SaO2% (BldA) [Mass fraction] 94 % Bambi Gonzalez Other [facility] Other 10-03-2021 13:25-0400 Body height 162.56 cm Rupinder Blakely Other [facility] Other 10-03-2021 13:25-0400 Body mass index (BMI) [Ratio] 68.82 kg/m2 Rupinder Blakely Other [facility] Other 10-03-2021 13:25-0400 Body temperature 97.5 [degF] Rupinder Blakely Other [facility] Other 10-03-2021 13:25-0400 Body weight 181.89 kg Rupinder Blakely Other [facility] Other 10-03-2021 13:25-0400 Diastolic blood pressure 57 mm[Hg] Rupinder Blakely Other [facility] Other 10-03-2021 13:25-0400 Respiratory rate 18 /min Rupinder Blakely Other [facility] Other 10-03-2021 13:25-0400 SaO2% (BldA) [Mass fraction] 99 % Rupinder Blakely Other [facility] Other 10-03-2021 13:25-0400 Systolic blood pressure 118 mm[Hg] Rupinder Blakely Other [facility] Other 09-30-2021 09:03-0400 Body height 162.56 cm Prince Trupti Horvath Work Phone: [id number] Work Phone: 09-30-2021 09:03-0400 Body mass index (BMI) [Ratio] 60.08 kg/m2 Prince Horvath Work Phone: [id number] Work Phone: 09-30-2021 09:03-0400 Body surface area Derived from formula 2.48 m2 Prince Horvath Work Phone: [id number] [facility] Work Phone: 09-30-2021 09:03-0400 Body weight 158.76 kg Prince Horvath Work Phone: [id number] [facility] Work Phone: 09-30-2021 09:03-0400 2 1 Prince Horvath Work Phone: [id number] [facility] Work Phone: Comment on above: GRAV PARA 09-30-2021 09:03-0400 0 1 Prince Horvath Work Phone: [id number] [facility] Work Phone: Comment on above: [employer] 09-23-2021 11:00-0400 Body height 160 cm Jayshree Nathanael POLICY CHANGE CLERK.SAW CLEANER Work Phone: [facility] 09-23-2021 11:00-0400 Body weight 165.56 kg Jayshree Huffman POLICY CHANGE CLERK.SAW CLEANER Work Phone: [facility] 05-17-2021 11:18-0500 Body height 160 cm Humza Walter MD Work Phone: [facility] 05-17-2021 11:18-0500 Body mass index (BMI) [Ratio] 68.09 kg/m2 Humza Walter MD Work Phone: [facility] 05-17-2021 11:18-0500 Body temperature 96.3 [degF] Humza Walter MD Work Phone: [facility] 05-17-2021 11:18-0500 Body weight 174.36 kg Humza Walter MD [facility] 05-17-2021 11:18-0500 Diastolic blood pressure 77 mm[Hg] Humza Walter MD Work Phone: [facility] 05-17-2021 11:18-0500 Heart rate 75 /min Humza Walter MD [facility] 05-17-2021 11:18-0500 SaO2% (BldA) [Mass fraction] 95 % Humza Walter MD [facility] 05-17-2021 11:18-0500 Systolic blood pressure 133 mm[Hg] Humza Walter MD Work Phone: [facility] 04-06-2020 09:25-0400 BP Diastolic 77 mm[Hg] [facility] , [facility] 04-06-2020 09:25-0400 BP Systolic 129 mm[Hg] Kylah Agudelo [facility], [facility] 04-06-2020 09:25-0400 Pulse (Heart Rate) 85 /min Kylah Agudelo [facility], [facility] 04-06-2020 09:25-0400 Pulse Oximetry 100 % [facility], [facility] 04-06-2020 09:25-0400 Respiratory Rate 17 /min [facility], [facility] 04-06-2020 08:54-0400 Body Temperature 97.81 [degF] [facility], [facility] 04-06-2020 08:06-0400 BMI (Body Mass Index) 64.68 kg/m2 [facility], [facility] 04-06-2020 08:06-0400 Body weight 165.[address] [facility], [facility] 04-06-2020 08:06-0400 Height [address] [facility] Encounter Date Encounter Type Care Provider Facility Start: 03-07-2024 End: 03-07-2024 ambulatory KIKO SEXTONZIO Not Available Start: 03-04-2024 End: 03-04-2024 Refill Amina Nieto MD Work Phone: General Surgery Comment on above: Refill Request Start: 03-04-2024 End: 03-04-2024 ambulatory PUJA BERRY Not Available Start: 01-06-2024 End: 01-06-2024 ambulatory KATIA B APLING Not Available Start: 12-09-2023 End: 12-09-2023 ambulatory KATIA B APLING Not Available Start: 12-07-2023 End: 12-07-2023 Evaluation and management of inpatient YOSHI DELGADO [facility] Start: 12-02-2023 End: 12-02-2023 [facility]: 11-27-2023 End: 11-27-2023 ambulatory ELIZABET SIMENTAL Facility:[facility] Start: 11-17-2023 End: 11-17-2023 ambulatory OTILIO Donya CAROLYN Not Available Start: 11-11-2023 End: 11-11-2023 ambulatory KATIA LEWIS Not Available Start: 11-04-2023 End: 11-04-2023 Evaluation and management of inpatient YOSHI DELGADO [facility] Start: 11-04-2023 End: 11-04-2023 Evaluation and management of inpatient OTILIO LEON [facility] Start: 11-03-2023 End: 11-03-2023 Admission to same day surgery center Amian Nieto MD Work Phone: General Surgery Comment on above: BMI 60.0-69.9, adult (HCC) (Primary Dx); S/P bariatric surgery Start: 11-03-2023 End: 11-03-2023 Telemedicine consultation with patient Amina Nieto MD Work Phone: General Surgery Start: 11-03-2023 End: 11-03-2023 ambulatory AMINA NIETO Facility:[facility] Start: 11-02-2023 End: 11-02-2023 Admission to [...] surgery Start: 11-02-2023 End: 11-02-2023 ambulatory ELIZABET RUMJODYG Facility:[facility] Start: 11-02-2023 End: 11-02-2023 Telemedicine consultation with patient Rupinder Colbert RD Work Phone: General Surgery Start: 10-28-2023 End: 10-28-2023 ambulatory ELIZABET HOLA Facility:[facility] Start: 10-20-2023 End: 10-20-2023 ambulatory [facility] [place] Start: 10-20-2023 Encounter for other preprocedural examination [facility] Start: 10-20-2023 End: 10-22-2023 ambulatory [facility] [place] Start: 10-13-2023 End: 10-13-2023 ambulatory OTILIO WENDLESTON Not Available Start: 10-07-2023 End: 10-07-2023 ambulatory KATIA LEWIS Not Available Start: 09-16-2023 End: 09-16-2023 ambulatory KIKO HARLEY Not Available Start: 09-07-2023 End: 09-07-2023 ambulatory JOE GRANDA Facility:[facility] Start: 09-07-2023 End: 09-07-2023 Patient encounter procedure Jayshree Huffman KRISH Work Phone: General Surgery Comment on above: [...] Start: 08-31-2023 End: 08-31-2023 ambulatory JOE GRANDA Facility:[facility] Start: 08-31-2023 End: 08-31-2023 Telemedicine consultation with patient Rupinder Colbert RD Work Phone: [facility] Start: 08-19-2023 End: 08-19-2023 ambulatory Alex [...] Alex Monsivais RD Work Phone: [facility] Start: 08-17-2023 End: 08-17-2023 ambulatory JOE GRANDA Facility:[facility] Start: 08-17-2023 End: 08-17-2023 Patient encounter procedure Jayshree Huffman POLICY CHANGE CLERK.SAW CLEANER Work Phone: Endocrinology BMI Comment on above: S/P gastrointestinal surgery, follow-up exam (Primary Dx); Status post biliopancreatic diversion with duodenal switch; Post-operative nausea and vomiting Start: 08-13-2023 Telephone encounter Niki Peterson RN General Surgery Comment on above: Post Op Start: 08-04-2023 End: 08-11-2023 Evaluation and management of inpatient JOE GRANDA Facility:[facility] Start: 08-03-2023 Telephone encounter Silvia Curry RN General Surgery Start: 07-22-2023 End: 07-22-2023 ambulatory ELIZABET SIMENTAL Facility:[facility] Start: 07-22-2023 Encounter for other preprocedural examination JOE GRANDA [facility] Start: 07-21-2023 End: 07-21-2023 ambulatory JOE GRANDA Facility:[facility] Start: 07-20-2023 End: 07-20-2023 ambulatory JOE GRANDA Facility:[facility] Start: 07-14-2023 End: 07-14-2023 ambulatory ELIZABET SIMENTAL Facility:[facility] Start: 07-13-2023 End: 07-13-2023 ambulatory ELIZABET SIMENTAL Facility:[facility] Start: 05-09-2023 Admission to [facility] Joe Granda MD Work Phone: Endocrinology BMI Comment on above: About surgery Start: 05-09-2023 ambulatory Joe izquierdo MD Work Phone: [facility] Start: 05-08-2023 ambulatory Joe izquierdo MD Work Phone: General Surgery Comment on above: Confirming Or Date Start: 05-08-2023 E-mail encounter fro m caregiver Joe Granda MD Work Phone: [facility] Start: 04-30-2023 End: 04-30-2023 ambulatory SHAUNNA PERSAUD Facility:[facility] Start: 04-27-2023 Telephone encounter Joe sargent MD Work Phone: Endocrinology BMI Start: 04-13-2023 End: 04-13-[address] Work Phone: General Surgery Comment on above: Patient left without being seen (Primary Dx) Start: 04-13-2023 End: 04-13-2023 Telemedicine consultation with patient Rupinder Sayra OLIVAS Work Phone: [facility] Start: 03-31-2023 End: 04-01-2023 Evaluation and management of inpatient JOE GRANDA Facility:[facility] Start: 03-10-2023 End: 03-10-[address] [facility] Work Phone: Pre Anesthesia Comment on above: Pre-op evaluation (P rimary Dx); Morbid obesity with body mass index of 60.0-69.9 in adult ([facility]); Gastroesophageal reflux disease, unspecified whether esophagitis present; TONEY on CPAP; Bipolar affective disorder, remission status unspecified ([facility]); Thrombocytosis; Migraine without status migrainosus, not intractable, unspecified migraine type Surgery question Start: 03-10-2023 End: 03-10-[address] [facility] Work Phone: [facility] Work Phone: Start: 03-05-2023 End: 03-05-2023 [facility] Mireille Dao RD Work Phone: General Surgery Comment on above: Weight gain followin g gastric bypass surgery (Primary Dx); Abnormal weight gain; Preop testing; Snoring; Sleep-disordered breathing; Fatigue, unspecified type; S/P bariatric surgery; S/P gastric sleeve procedure; Dietary counseling and surveillance; BMI 60.0-69.9, adult (HCC) Start: 03-05-2023 End: 03-05-2023 Patient encounter status Mireille Dao BRENDON Work Phone: [facility] Work Phone: Start: 02-26-2023 End: 02-26-2023 ambulatory [facility] Facility:[facility] Start: 01-23-2023 End: 01-23-2023 ambulatory [facility] Facility:[facility] Start: 01-15-2023 End: 01-15-2023 ambulatory [facility] Facility:[facility] Start: 01-15-2023 Encounter for other preprocedural examination JOE GRANDA [facility] Start: 01-09-2023 End: 01-09-2023 ambulatory JOE GRANDA Facility:[facility] Start: 01-05-2023 Telephone encounter Joe sargent [...] Start: 12-15-2022 End: 12-15-2022 ambulatory MIREILLE FELIBERTO Facility:[facility] Start: 12-15-2022 End: 12-15-2022 Telemedicine consultation with patient Mireille Dao BRENDON Work Phone: [facility] Start: 12-13-2022 Office outpatient vi sit 15 minutes Linda [place] [facility] Start: 12-13-2022 End: 12-13-2022 ambulatory Linda South [facility] Other Start: 12-03-2022 Admission to [facility] Joe Granda MD Work Phone: General Surgery Comment on above: Insurance Authorizat ion (Not Real Surgery Date) Start: 12-03-2022 ambulatory Joe izquierdo MD Work Phone: [facility] Start: 11-03-2022 End: 11-04-[address] DOCTOR ALFARO Facility:[facility] Start: 08-27-2022 End: 08-28-[address] DOCTOR ALFARO Facility:[facility] Start: 08-19-2022 End: 08-19-2022 ambulatory MICHELLE GOMEZ . Facility:[facility] Start: 08-17-2022 Encounter for other preprocedural examination DR DOCTOR ALFARO [facility] Start: 08-12-2022 End: 08-13-[address] DOCTOR ALFARO Facility:[facility] Start: 08-12-2022 End: 08-13-2022 Encounter for other preprocedural examination DR DOCTOR ALFARO Facility:[facility] Start: 07-22-[address] DOCTOR ALFARO Facility :[facility] Start: 06-04-2022 End: 06-04-2022 [facility] Amina Nieto MD Work Phone: Endocrinology [...] Start: 04-16-2022 End: 04-16-2022 ambulatory Christa Tyler Facility:[facility] Start: 04-16-2022 End: 04-16-2022 Patient encounter procedure [facility] Start: 04-16-2022 End: 04-16-2022 ambulatory Joe Granda MD Work Phone: Endocrinology BMI Comment on above: Morbid obesity with body mass index of 60.0-69.9 in adult (HCC) (Primary Dx); Gastroesophageal reflux disease, unspecified whether esophagitis present Start: 04-16-2022 End: 04-16-2022 Telemedicine consultation with patient Joe Granda MD Work Phone: [facility] Start: 04-16-2022 End: 04-16-2022 ambulatory NON STAFF [facility] Work Phone: Start: 04-16-2022 Office outpatient vi sit 15 minutes Christa Nayeli [facility] Start: 04-15-2022 ambulatory Pao Hodgson RN Work Phone: Endocrinology BMI Comment on above: Upper GI Series Start: 04-15-2022 E-mail encounter fro m caregiver Pao Hodgson RN Work Phone: [facility] Start: 04-11-2022 End: 04-12-[address] ESTELLA WHITEHEAD Facility:[facility] Start: 04-01-2022 End: 04-01-[address] KAT MUNGUIA . Facility:[facility] Start: 03-27-2022 End: 03-27-2022 ambulatory Rob Garcia Other [facility] Other Start: 03-27-2022 Telephone encounter Rob FOWLER G Gastroenter[facility] Start: 03-10-2022 End: 03-10-2022 ambulatory Joe Granda MD Work Phone: Endocrinology BMI Comment on above: History of sleeve ga strectomy (Primary Dx) Start: 03-10-2022 End: 03-10-2022 Telemedicine consultation with patient Joe Granda MD Work Phone: [facility] Start: 02-17-2022 End: 02-17-2022 ambulatory Joe Granda MD Work Phone: Endocrinology BMI Comment on above: NO SHOW (Primary Dx) Start: 02-17-2022 End: 02-17-2022 Telemedicine consultation with patient Joe Granda MD Work Phone: [facility] Start: 02-12-2022 End: 02-12-2022 Subsequent hospital visit by physician Eusebia Prep [facility] [employer] [facility] Work Phone: [facility] Radiology CT Scan Comment on above: [...] Joe Granda MD Work Phone: [facility] Start: 01-17-2022 End: 01-17-2022 ambulatory Alex Monsivais [...] with patient Akosua Peraza RD Work Phone: [facility] Start: 11-13-2021 End: 11-13-2021 ambulatory Christa Tyler Other [facility] Other Start: 11-13-2021 Office outpatient vi sit 15 minutes Christa Tyler [facility] Start: 11-04-2021 End: 11-04-[address] Work Phone: Endocrinology BMI Comment on above: Reassessment; Patien t Education Start: 11-04-2021 End: 11-04-2021 Patient encounter procedure Joe Granda MD Work Phone: Endocrinology BMI Comment on above: History of sleeve ga strectomy (Primary Dx); Gastric fistula Start: 10-28-2021 End: 10-28-2021 ambulatory Estella Nguyen Other [facility] Other Start: 10-28-2021 Telephone encounter Estella Nguyen [facility] Gastroenterology Start: 10-23-2021 End: 10-23-2021 ambulatory Celsa Argueta Other [facility] Other Start: 10-23-2021 Telephone encounter Celsa Argueta [facility] Start: 10-11-2021 End: 10-11-2021 ambulatory Bambi Gonzalez Other [facility] Other Start: 10-11-2021 Patient encounter procedure Bambi Gonzalez [facility] Start: 10-03-2021 End: 10-03-2021 ambulatory Rupinder Blakely Other [place] [employer] Other Start: 10-03-2021 Office outpatient vi sit 25 minutes Rupinder Blakely [facility] Start: 09-30-2021 Office consultation new/estab patient 40 min Prince Horvath Work Phone: [id number] Work Phone: Start: 09-25-2021 Orders Only Joe izquierdo MD Work Phone: General Surgery Comment on above: Dysphagia, unspecifi ed type (Primary Dx); Gastroesophageal reflux disease, unspecified whether esophagitis present; History of sleeve gastrectomy Start: 09-24-2021 E-mail encounter rajiv girard caregiver Jayshree Sampsonjustyna ADAMSONSAW CLEANER Work Phone: [facility] Start: 09-24-2021 Follow-up encounter Jayshree tilley APRN.SAW CLEANER Work Phone: General Surgery Comment on above: Appointment follow u p Start: 09-23-2021 End: 09-23-2021 ambulatory Jayshree Nathanael ADAMSONSAW CLEANER Work Phone: General Surgery Comment on above: Gastroesophageal ref lux disease, unspecified whether esophagitis present (Primary Dx); Class 3 severe obesity with serious comorbidity and body mass index (BMI) of 60.0 to 69.9 in adult, unspecified obesity type (HCC); TONEY on CPAP; S/P laparoscopic sleeve gastrectomy; Postoperative malabsorption Start: 09-23-2021 End: 09-23-2021 Telemedicine consultation with patient Jayshree Huffman SAW CLEANER Work Phone: [facility] Start: 05-17-2021 End: 05-17-2021 Office outpatient new 45 minutes Humza Walter MD Work Phone: [facility] Bariatric [facility] Comment on above: S/P laparoscopic sle terra gastrectomy (Primary Dx); TONEY on CPAP; Morbid obesity with body mass index of 50 or higher; Gastroesophageal reflux disease, unspecified whether esophagitis present; Screening for viral disease; Other intestinal malabsorption Start: 04-06-2020 End: 04-06-2020 Patient encounter procedure KYLAH VARGAS [facility] Start: 04-06-2020 End: 04-06-2020 Subsequent hospital visit by physician Kylah Vargas [facility] Comment on above: S/P laparoscopic sle terra gastrectomy (Primary Dx) Start: 04-02-2020 End: 04-07-2020 Patient encounter procedure CHANA THOMAS [facility] Start: 04-02-2020 Patient encounter procedure ELIZABET SIMENTAL [facility] Start: 04-02-2020 End: 04-06-2020 Subsequent hospital visit by physician Franklin Covid19 Pat Screening Schedule MTHZ PRE ADMIT Comment on above: Preop testing Start: 01-06-2017 End: 01-07-2017 [facility] Date Procedure Procedure Detail Performing Clinician Start: 08-04-2023 History of gastrointestinal tract bypass S/P biliopancreatic diversion with duodenal switch Rupinder Colbert RD Work Phone: Start: 07-22-2023 Antibody screen JOE GRANDA Comment on above: Order Comment: Specimen Type: BLOOD SPEC IMEN Ordering Facility: [facility] Address: [address] [place] [address] Performed By: #### 2 [id number], [id number], [id number] #### [facility] CLIA [id number] [address] [place] [address] [place] Start: 04-16-2022 X-ray of right foot Start: 02-12-2022 Ct abdomen & pelvis w/contrast material Joe Granda MD Work Phone: Start: 12-18-2021 Esophagogastroduodenoscopy transoral diagnostic Jayshree Huffman APRN.SAW CLEANER Work Phone: Start: 08-19-2021 Adult depression screening assessment Jayshree Huffman APRN.SAW CLEANER Work Phone: Start: 04-06-2020 Level iv surg [...] Urine test visual color cmprsn meths Kylah Vargas Work Phone: Start: 04-02-2020 COVID-19 AMBULATORY CHANA THOMAS Start: 04-02-2020 COVID-19 AMBULATORY Jose Miguel Thomas Work Phone: Start: 01-06-2017 DRUG SCREEN, PAIN GENEVA AICCODY Cholecystectomy Prince giles Work Phone: Decompression of median nerve Prince Horvath Work Phone: Comment on above: Bilateral; History of gastroint estinal tract bypass Status post biliopancreatic diversion with duodenal switch Jayshree Nathanael POLICY CHANGE CLERK.SAW CLEANER Work Phone: History of gastroint estinal tract bypass S/P biliopancreatic diversion with duodenal switch Alex Monsivais RD Work Phone: History of gastroint estinal tract bypass S/P biliopancreatic diversion with duodenal switch Jayshree Nathanael POLICY CHANGE CLERK.SAW CLEANER Work Phone: History of gastroint estinal tract bypass S/P biliopancreatic diversion with duodenal switch Jayshree Nathanael POLICY CHANGE CLERK.SAW CLEANER Work Phone: Splenectomy Prince ramírez Work Phone: Plan of Treatment Date Care Activity Detail Author Start: 08-11-2029 DTaP/Tdap/Td vaccine (2 - Td) DTaP/Tdap/Td vaccine (2 - Td) [place] Start: 08-11-2029 Urine microalbumin profile DTaP,Tdap,Td Vaccine (2 - Td or Tdap) [facility] Start: 01-03-2025 Meningococcal (ACWY) vaccine (3 - Risk start after 7 months 2-dose series) Meningococcal (ACWY) vaccine (3 - Risk start after 7 months 2-dose series) [place], [place] Start: 05-05-2024 End: 05-05-2024 Patient encounter procedure Endocrinology BMI Comment on above: 6 mo post op Start: 04-19-2024 End: 04-19-2024 Follow-up encounter 04/19/2024 11:30 AM EDT [facility] General Surgery [address] [place] [address] Amina Nieto MD [address] [place] [address] FOLLOW UP General Surgery Comment on above: FOLLOW UP Start: 02-28-2024 Covid-19 Vaccine ( season) Covid-19 Vaccine ( season) [facility] Start: 02-28-2024 Influenza vaccination [facility] Start: 02-10-2024 End: 02-10-2024 Follow-up encounter 02/10/2024 2:15 PM EDT [facility] Endocrinology BMI [id number] [place] [address] Amina Nieto MD [address] [place] [address] follow up Endocrinology BMI Comment on above: follow up Start: 11-18-2023 End: 11-18-2023 ambulatory 11/18/2023 11:30 AM EDT Results Only [facility] [address] [place] [address] [place] [address] [facility] Start: 10-26-2023 End: 01-25-2024 25-hydroxyvitamin D3 [Mass/volume] in Serum or Plasma VITAMIN D 25 HYDROXY Lab Routine S/P biliopancreatic diversion with duodenal switch Impaired intestinal absorption Expected: 10/26/2023 (Approximate), Expires: 01/25/2024 [facility] Work Phone: Comment on above: Expected: 10/26/2023 (Approximate), Expi res: 01/25/2024 Start: 10-26-2023 End: 01-25-2024 Alpha tocopherol [Mass/volume] in Serum or Plasma VITAMIN E/TOCOPHEROL Lab Routine S/P biliopancreatic diversion with duodenal switch Impaired intestinal absorption Expected: 10/26/2023 (Approximate), Expires: 01/25/2024 [facility] Work Phone: Comment on above: Expected: 10/26/2023 (Approximate), Expi res: 01/25/2024 Start: 10-26-2023 End: 01-25-2024 CBC panel - Blood by Automated count CBC Lab Routine S/P biliopancreatic diversion with duodenal switch Open abdominal incision with drainage, subsequent encounter Impaired intestinal absorption Expected: 10/26/2023 (Approximate), Expires: 01/25/2024 [facility] Work Phone: Comment on above: Expected: 10/26/2023 (Approximate), Expi res: 01/25/2024 Start: 10-26-2023 End: 01-25-2024 Cobalamin (Vitamin B12) [Mass/volume] in Serum or Plasma VITAMIN B12 BLOOD Lab Routine S/P biliopancreatic diversion with duodenal switch Impaired intestinal absorption Expected: 10/26/2023 (Approximate), Expires: 01/25/2024 [facility] Work Phone: Comment on above: Expected: 10/26/2023 (Approximate), Expi res: 01/25/2024 Start: 10-26-2023 End: 01-25-2024 Comprehensive metabolic 2000 panel - Serum or Plasma COMP METABOLIC PANEL Lab Routine S/P biliopancreatic diversion with duodenal switch Impaired intestinal absorption Expected: 10/26/2023 (Approximate), Expires: 01/25/2024 [facility] Work Phone: Comment on above: Expected: 10/26/2023 (Approximate), Expi res: 01/25/2024 Start: 10-26-2023 End: 01-25-2024 Ferritin [Mass/volume] in Serum or Plasma FERRITIN BLD Lab Routine S/P biliopancreatic diversion with duodenal switch Impaired intestinal absorption Expected: 10/26/2023 (Approximate), Expires: 01/25/2024 [facility] Work Phone: Comment on above: Expected: 10/26/2023 (Approximate), Expi res: 01/25/2024 Start: 10-26-2023 End: 01-25-2024 Folate [Mass/volume] in Serum or Plasma FOLATE SERUM Lab Routine S/P biliopancreatic diversion with duodenal switch Impaired intestinal absorption Expected: 10/26/2023 (Approximate), Expires: 01/25/2024 [facility] Work Phone: Comment on above: Expected: 10/26/2023 (Approximate), Expi res: 01/25/2024 Start: 10-26-2023 End: 01-25-2024 Hemoglobin A1c in Blood HGB A1C Lab Routine S/P biliopancreatic diversion with duodenal switch Impaired intestinal absorption Expected: 10/26/2023 (Approximate), Expires: 01/25/2024 [facility] Work Phone: Comment on above: Expected: 10/26/2023 (Approximate), Expi res: 01/25/2024 Start: 10-26-2023 End: 01-25-2024 Iron and Iron binding capacity panel - Serum or Plasma IRON + TIBC Lab Routine S/P biliopancreatic diversion with duodenal switch Impaired intestinal absorption Expected: 10/26/2023 (Approximate), Expires: 01/25/2024 [facility] Work Phone: Comment on above: Expected: 10/26/2023 (Approximate), Expi res: 01/25/2024 Start: 10-26-2023 End: 01-25-2024 Parathyrin.intact [Mass/volume] in Serum or Plasma PTH INTACT BLD Lab Routine S/P biliopancreatic diversion with duodenal switch Impaired intestinal absorption Expected: 10/26/2023 (Approximate), Expires: 01/25/2024 [facility] Work Phone: Comment on above: Expected: 10/26/2023 (Approximate), Expi res: 01/25/2024 Start: 10-26-2023 End: 01-25-2024 Retinol [Mass/volume] in Serum or Plasma VITAMIN A/RETINOL Lab Routine S/P biliopancreatic diversion with duodenal switch Impaired intestinal absorption Expected: 10/26/2023 (Approximate), Expires: 01/25/2024 [facility] Work Phone: Comment on above: Expected: 10/26/2023 (Approximate), Expi res: 01/25/2024 Start: 10-26-2023 End: 01-25-2024 VITAMIN B1 (THIAMINE), WHOLE BLOOD VITAMIN B1 (THIAMINE), WHOLE BLOOD Lab Routine S/P biliopancreatic diversion with duodenal switch Impaired intestinal absorption Expected: 10/26/2023 (Approximate), Expires: 01/25/2024 [facility] Work Phone: Comment on above: Expected: 10/26/2023 (Approximate), Expi res: 01/25/2024 Start: 10-26-2023 End: 01-25-2024 VITAMIN K VITAMIN K Lab Routine S/P biliopancreatic diversion with duodenal switch Impaired intestinal absorption Expected: 10/26/2023 (Approximate), Expires: 01/25/2024 [facility] Work Phone: Comment on above: Expected: 10/26/2023 (Approximate), Expi res: 01/25/2024 Start: 10-26-2023 End: 01-25-2024 Zinc [Mass/volume] in Serum or Plasma ZINC BLD Lab Routine S/P biliopancreatic diversion with duodenal switch Impaired intestinal absorption Expected: 10/26/2023 (Approximate), Expires: 01/25/2024 [facility] Work Phone: Comment on above: Expected: 10/26/2023 (Approximate), Expi res: 01/25/2024 Start: 06-29-2023 Depression Assessment Depression Assessment [facility] Start: 02-27-2023 Covid-19 Vaccine () Covid-19 Vaccine () [facility] Start: 02-27-2023 Influenza vaccination [facility] Start: 08-19-2022 Adult depression screening assessment DEPRESSION SCREENING [facility] Start: 06-29-2022 DEPRESSION ASSESSMENT DEPRESSION ASSESSMENT [facility] Start: 05-13-2022 End: 08-23-2022 Coagulation factor VIII activity actual/normal in Platelet poor plasma by Coagulation assay FACTOR VIII:C ASSAY Lab Routine BMI 70 and over, adult (HCC) Gastroesophageal reflux disease, unspecified whether esophagitis present Expected: 05/13/2022 (Approximate), Expires: 08/23/2022 [facility] Work Phone: Comment on above: Expected: 05/13/2022 (Approximate), Expi res: 08/23/2022 Start: 05-13-2022 End: 08-23-2022 CONFIRM BLOOD TYPE CONFIRM BLOOD TYPE Blood Bank Routine BMI 70 and over, adult (HCC) Gastroesophageal reflux disease, unspecified whether esophagitis present Expected: 05/13/2022 (Approximate), Expires: 08/23/2022 [facility] Work Phone: Comment on above: Expected: 05/13/2022 (Approximate), Expi res: 08/23/2022 Start: 05-13-2022 End: 08-23-2022 TYPE AND SCREEN,30 DAY TYPE AND SCREEN,30 DAY Blood Bank Routine BMI 70 and over, adult (HCC) Gastroesophageal reflux disease, unspecified whether esophagitis present Expected: 05/13/2022 (Approximate), Expires: 08/23/2022 [facility] Work Phone: Comment on above: Expected: 05/13/2022 (Approximate), Expi res: 08/23/2022 Start: 03-10-2022 End: 05-10-2022 25-hydroxyvitamin D3 [Mass/volume] in Serum or Plasma VITAMIN D 25 HYDROXY Lab Routine History of sleeve gastrectomy Expected: 03/10/2022, Expires: 05/10/2022 [facility] Work Phone: Comment on above: Expected: 03/10/2022, Expires: 2 Start: 03-10-2022 End: 05-10-2022 CBC W Auto Differential panel - Blood CBC + DIFF Lab Routine History of sleeve gastrectomy Expected: 03/10/2022, Expires: 05/10/2022 [facility] Work Phone: Comment on above: Expected: 03/10/2022, Expires: 2 Start: 03-10-2022 End: 05-10-2022 Cobalamin (Vitamin B12) [Mass/volume] in Serum or Plasma VITAMIN B12 BLOOD Lab Routine History of sleeve gastrectomy Expected: 03/10/2022, Expires: 05/10/2022 [facility] Work Phone: Comment on above: Expected: 03/10/2022, Expires: 2 Start: 03-10-2022 End: 05-10-2022 Comprehensive metabolic 2000 panel - Serum or Plasma COMP METABOLIC PANEL Lab Routine History of sleeve gastrectomy Expected: 03/10/2022, Expires: 05/10/2022 [facility] Work Phone: Comment on above: Expected: 03/10/2022, Expires: 2 Start: 03-10-2022 End: 05-10-2022 Folate [Mass/volume] in Serum or Plasma FOLATE SERUM Lab Routine History of sleeve gastrectomy Expected: 03/10/2022, Expires: 05/10/2022 [facility] Work Phone: Comment on above: Expected: 03/10/2022, Expires: 2 Start: 03-10-2022 End: 05-10-2022 Iron and Iron binding capacity panel - Serum or Plasma IRON + TIBC Lab Routine History of sleeve gastrectomy Expected: 03/10/2022, Expires: 05/10/2022 [facility] Work Phone: Comment on above: Expected: 03/10/2022, Expires: 2 Start: 03-10-2022 End: 05-10-2022 Prealbumin [Mass/volume] in Serum or Plasma PREALBUMIN BLD Lab Routine History of sleeve gastrectomy Expected: 03/10/2022, Expires: 05/10/2022 [facility] Work Phone: Comment on above: Expected: 03/10/2022, Expires: 2 Start: 03-10-2022 End: 05-10-2022 VITAMIN B1 (THIAMINE), WHOLE BLOOD VITAMIN B1 (THIAMINE), WHOLE BLOOD Lab Routine History of sleeve gastrectomy Expected: 03/10/2022, Expires: 05/10/2022 [facility] Work Phone: Comment on above: Expected: 03/10/2022, Expires: 2 Start: 02-27-2022 Influenza vaccination INFLUENZA (#1) [facility] Start: 12-01-2021 COVID-19 VACCINE (3 - Booster for Pfizer series) COVID-19 VACCINE (3 - Booster for Pfizer series) [facility] Start: 11-04-2021 End: 01-04-2022 CBC W Auto Differential panel - Blood CBC + DIFF Lab Routine History of sleeve gastrectomy Expected: 11/04/2021, Expires: 01/04/2022 [facility] Work Phone: Comment on above: Expected: 11/04/2021, Expires: 2 Start: 11-04-2021 End: 01-04-2022 Comprehensive metabolic 2000 panel - Serum or Plasma COMP METABOLIC PANEL Lab Routine History of sleeve gastrectomy Expected: 11/04/2021, Expires: 01/04/2022 [facility] Work Phone: Comment on above: Expected: 11/04/2021, Expires: 2 Start: 11-04-2021 End: 01-04-2022 Folate [Mass/volume] in Serum or Plasma FOLATE SERUM Lab Routine History of sleeve gastrectomy Expected: 11/04/2021, Expires: 01/04/2022 [facility] Work Phone: Comment on above: Expected: 11/04/2021, Expires: 2 Start: 11-04-2021 End: 01-04-2022 IRON + TIBC IRON + TIBC Lab Routine History of sleeve gastrectomy Expected: 11/04/2021, Expires: 01/04/2022 [facility] Work Phone: Comment on above: Expected: 11/04/2021, Expires: 2 Start: 11-04-2021 End: 01-04-2022 LIPID PANEL BASIC LIPID PANEL BASIC Lab Routine History of sleeve gastrectomy Expected: 11/04/2021, Expires: 01/04/2022 [facility] Work Phone: Comment on above: Expected: 11/04/2021, Expires: 2 Start: 11-04-2021 End: 01-04-2022 Prealbumin [Mass/volume] in Serum or Plasma PREALBUMIN BLD Lab Routine History of sleeve gastrectomy Expected: 11/04/2021, Expires: 01/04/2022 [facility] Work Phone: Comment on above: Expected: 11/04/2021, Expires: 2 Start: 11-04-2021 End: 01-04-2022 VITAMIN B1 (THIAMINE), WHOLE BLOOD VITAMIN B1 (THIAMINE), WHOLE BLOOD Lab Routine History of sleeve gastrectomy Expected: 11/04/2021, Expires: 01/04/2022 [facility] Work Phone: Comment on above: Expected: 11/04/2021, Expires: 2 Start: 11-04-2021 End: 01-04-2022 VITAMIN B12 BLOOD VITAMIN B12 BLOOD Lab Routine History of sleeve gastrectomy Expected: 11/04/2021, Expires: 01/04/2022 [facility] Work Phone: Comment on above: Expected: 11/04/2021, Expires: 2 Start: 11-04-2021 End: 01-04-2022 VITAMIN D 25 HYDROXY VITAMIN D 25 HYDROXY Lab Routine History of sleeve gastrectomy Expected: 11/04/2021, Expires: 01/04/2022 [facility] Work Phone: Comment on above: Expected: 11/04/2021, Expires: 2 Start: 09-23-2021 End: 11-23-2021 CBC panel - Blood by Automated count CBC Lab Routine Gastroesophageal reflux disease, unspecified whether esophagitis present Class 3 severe obesity with serious comorbidity and body mass index (BMI) of 60.0 to 69.9 in adult, unspecified obesity type (HCC) Postoperative malabsorption Expected: 09/23/2021, Expires: 11/23/2021 [facility] Work Phone: Comment on above: Expected: 09/23/2021, Expires: 2 Start: 09-23-2021 End: 11-23-2021 Choriogonadotropin ( test) [Presence] in Urine HCG QUAL UR Lab Routine Gastroesophageal reflux disease, unspecified whether esophagitis present Class 3 severe obesity with serious comorbidity and body mass index (BMI) of 60.0 to 69.9 in adult, unspecified obesity type (HCC) Postoperative malabsorption Expected: 09/23/2021, Expires: 11/23/2021 [facility] Work Phone: Comment on above: Expected: 09/23/2021, Expires: 2 Start: 09-23-2021 End: 11-23-2021 Comprehensive metabolic 2000 panel - Serum or Plasma COMP METABOLIC PANEL Lab Routine Gastroesophageal reflux disease, unspecified whether esophagitis present Class 3 severe obesity with serious comorbidity and body mass index (BMI) of 60.0 to 69.9 in adult, unspecified obesity type (HCC) Postoperative malabsorption Expected: 09/23/2021, Expires: 11/23/2021 [facility] Work Phone: Comment on above: Expected: 09/23/2021, Expires: 2 Start: 09-23-2021 End: 11-23-2021 FERRITIN BLD FERRITIN BLD Lab Routine Gastroesophageal reflux disease, unspecified whether esophagitis present Class 3 severe obesity with serious comorbidity and body mass index (BMI) of 60.0 to 69.9 in adult, unspecified obesity type (HCC) Postoperative malabsorption Expected: 09/23/2021, Expires: 11/23/2021 [facility] Work Phone: Comment on above: Expected: 09/23/2021, Expires: 2 Start: 09-23-2021 End: 11-23-2021 Folate [Mass/volume] in Serum or Plasma FOLATE SERUM Lab Routine Gastroesophageal reflux disease, unspecified whether esophagitis present Class 3 severe obesity with serious comorbidity and body mass index (BMI) of 60.0 to 69.9 in adult, unspecified obesity type (HCC) Postoperative malabsorption Expected: 09/23/2021, Expires: 11/23/2021 [facility] Work Phone: Comment on above: Expected: 09/23/2021, Expires: 2 Start: 09-23-2021 End: 11-23-2021 Hemoglobin A1c/Hemoglobin.total in Blood HGB A1C Lab Routine Gastroesophageal reflux disease, unspecified whether esophagitis present Class 3 severe obesity with serious comorbidity and body mass index (BMI) of 60.0 to 69.9 in adult, unspecified obesity type (HCC) Postoperative malabsorption Expected: 09/23/2021, Expires: 11/23/2021 [facility] Work Phone: Comment on above: Expected: 09/23/2021, Expires: 2 Start: 09-23-2021 End: 11-23-2021 IRON + TIBC IRON + TIBC Lab Routine Gastroesophageal reflux disease, unspecified whether esophagitis present Class 3 severe obesity with serious comorbidity and body mass index (BMI) of 60.0 to 69.9 in adult, unspecified obesity type (HCC) Postoperative malabsorption Expected: 09/23/2021, Expires: 11/23/2021 [facility] Work Phone: Comment on above: Expected: 09/23/2021, Expires: 2 Start: 09-23-2021 End: 11-23-2021 LIPID PANEL BASIC LIPID PANEL BASIC Lab Routine Gastroesophageal reflux disease, unspecified whether esophagitis present Class 3 severe obesity with serious comorbidity and body mass index (BMI) of 60.0 to 69.9 in adult, unspecified obesity type (HCC) Postoperative malabsorption Expected: 09/23/2021, Expires: 11/23/2021 [facility] Work Phone: Comment on above: Expected: 09/23/2021, Expires: 2 Start: 09-23-2021 End: 11-23-2021 NICOTINE & METAB, UR NICOTINE & METAB, UR Lab Routine Gastroesophageal reflux disease, unspecified whether esophagitis present Class 3 severe obesity with serious comorbidity and body mass index (BMI) of 60.0 to 69.9 in adult, unspecified obesity type (HCC) Postoperative malabsorption Expected: 09/23/2021, Expires: 11/23/2021 [facility] Work Phone: Comment on above: Expected: 09/23/2021, Expires: 2 Start: 09-23-2021 End: 11-23-2021 PTH INTACT BLD PTH INTACT BLD Lab Routine Gastroesophageal reflux disease, unspecified whether esophagitis present Class 3 severe obesity with serious comorbidity and body mass index (BMI) of 60.0 to 69.9 in adult, unspecified obesity type (HCC) Postoperative malabsorption Expected: 09/23/2021, Expires: 11/23/2021 [facility] Work Phone: Comment on above: Expected: 09/23/2021, Expires: 2 Start: 09-23-2021 End: 11-23-2021 Thyrotropin [Units/volume] in Serum or Plasma TSH BLD Lab Routine Gastroesophageal reflux disease, unspecified whether esophagitis present Class 3 severe obesity with serious comorbidity and body mass index (BMI) of 60.0 to 69.9 in adult, unspecified obesity type (HCC) Postoperative malabsorption Expected: 09/23/2021, Expires: 11/23/2021 [facility] Work Phone: Comment on above: Expected: 09/23/2021, Expires: 2 Start: 09-23-2021 End: 11-23-2021 TOX SCREEN ROUT UR TOX SCREEN ROUT UR Lab Routine Gastroesophageal reflux disease, unspecified whether esophagitis present Class 3 severe obesity with serious comorbidity and body mass index (BMI) of 60.0 to 69.9 in adult, unspecified obesity type (HCC) Postoperative malabsorption Expected: 09/23/2021, Expires: 11/23/2021 [facility] Work Phone: Comment on above: Expected: 09/23/2021, Expires: 2 Start: 09-23-2021 End: 11-23-2021 VITAMIN B1 (THIAMINE), WHOLE BLOOD VITAMIN B1 (THIAMINE), WHOLE BLOOD Lab Routine Gastroesophageal reflux disease, unspecified whether esophagitis present Class 3 severe obesity with serious comorbidity and body mass index (BMI) of 60.0 to 69.9 in adult, unspecified obesity type (HCC) Postoperative malabsorption Expected: 09/23/2021, Expires: 11/23/2021 [facility] Work Phone: Comment on above: Expected: 09/23/2021, Expires: 2 Start: 09-23-2021 End: 11-23-2021 VITAMIN B12 BLOOD VITAMIN B12 BLOOD Lab Routine Gastroesophageal reflux disease, unspecified whether esophagitis present Class 3 severe obesity with serious comorbidity and body mass index (BMI) of 60.0 to 69.9 in adult, unspecified obesity type (HCC) Postoperative malabsorption Expected: 09/23/2021, Expires: 11/23/2021 [facility] Work Phone: Comment on above: Expected: 09/23/2021, Expires: 2 Start: 09-23-2021 End: 11-23-2021 VITAMIN D 25 HYDROXY VITAMIN D 25 HYDROXY Lab Routine Gastroesophageal reflux disease, unspecified whether esophagitis present Class 3 severe obesity with serious comorbidity and body mass index (BMI) of 60.0 to 69.9 in adult, unspecified obesity type (HCC) Postoperative malabsorption Expected: 09/23/2021, Expires: 11/23/2021 [facility] Work Phone: Comment on above: Expected: 09/23/2021, Expires: 2 Start: 08-28-2021 COVID-19 VACCINE (3 - Booster for Pfizer series) COVID-19 VACCINE (3 - Booster for Pfizer series) [facility] Start: 08-28-2021 COVID-19 VACCINE (3 - Pfizer series) COVID-19 VACCINE (3 - Pfizer series) [facility] Start: 06-29-2021 DEPRESSION ASSESSMENT DEPRESSION ASSESSMENT [facility] Start: 05-30-2021 End: 05-30-2021 Nutrition therapy 05/30/2021 Clinical Support Encounter Nutrition and Dietetics Angelo Cedillo, RD [address] [place] [address] [facility] Start: 05-17-2021 End: 05-17-2022 B12/folate level B12 & FOLATE Lab Routine S/P laparoscopic sleeve gastrectomy TONEY on CPAP Morbid obesity with body mass index of 50 or higher Gastroesophageal reflux disease, unspecified whether esophagitis present Other intestinal malabsorption Expected: 05/17/2021, Expires: 05/17/2022 [facility] Comment on above: Expected: 05/17/2021, Expires: 2 Start: 05-17-2021 End: 05-17-2022 Complete blood count with white cell differential, automated CBC, EDIF, PLATELET Lab Routine S/P laparoscopic sleeve gastrectomy TONEY on CPAP Morbid obesity with body mass index of 50 or higher Gastroesophageal reflux disease, unspecified whether esophagitis present Other intestinal malabsorption Expected: 05/17/2021, Expires: 05/17/2022 [facility] Comment on above: Expected: 05/17/2021, Expires: 2 Start: 05-17-2021 End: 05-17-2022 Comprehensive metabolic 2000 panel - Serum or Plasma COMPREHENSIVE METABOLIC PANEL Lab Routine S/P laparoscopic sleeve gastrectomy TONEY on CPAP Morbid obesity with body mass index of 50 or higher Gastroesophageal reflux disease, unspecified whether esophagitis present Other intestinal malabsorption Expected: 05/17/2021, Expires: 05/17/2022 [facility] Comment on above: Expected: 05/17/2021, Expires: 2 Start: 05-17-2021 End: 05-17-2022 Diagnostic radiography of chest, combined PA and lateral XR CHEST PA AND LATERAL Imaging Routine S/P laparoscopic sleeve gastrectomy TONEY on CPAP Morbid obesity with body mass index of 50 or higher Gastroesophageal reflux disease, unspecified whether esophagitis present Other intestinal malabsorption Expected: 05/17/2021, Expires: 05/17/2022 [facility] Comment on above: Expected: 05/17/2021, Expires: 2 Start: 05-17-2021 End: 05-17-2022 Fluoroscopy of upper gastrointestinal tract XR FLUORO UPPER GI, WATER SOLUBLE AND/OR BARIUM CONTRAST Imaging Routine S/P laparoscopic sleeve gastrectomy Gastroesophageal reflux disease, unspecified whether esophagitis present Expected: 05/17/2021, Expires: 05/17/2022 [facility] Comment on above: Expected: 05/17/2021, Expires: 2 Start: 05-17-2021 End: 05-17-2022 Hemoglobin A1c/Hemoglobin.total in Blood HEMOGLOBIN A1C Lab Routine S/P laparoscopic sleeve gastrectomy TONEY on CPAP Morbid obesity with body mass index of 50 or higher Gastroesophageal reflux disease, unspecified whether esophagitis present Other intestinal malabsorption Expected: 05/17/2021, Expires: 05/17/2022 [facility] Comment on above: Expected: 05/17/2021, Expires: 2 Start: 05-17-2021 End: 05-17-2022 IRON/IRON BINDING/TRANSFERRIN IRON/IRON BINDING/TRANSFERRIN Lab Routine S/P laparoscopic sleeve gastrectomy TONEY on CPAP Morbid obesity with body mass index of 50 or higher Gastroesophageal reflux disease, unspecified whether esophagitis present Other intestinal malabsorption Expected: 05/17/2021, Expires: 05/17/2022 [facility] Comment on above: Expected: 05/17/2021, Expires: 2 Start: 05-17-2021 End: 05-17-2022 LIPID PANEL W CALCULATED LDL LIPID PANEL W CALCULATED LDL Lab Routine S/P laparoscopic sleeve gastrectomy TONEY on CPAP Morbid obesity with body mass index of 50 or higher Gastroesophageal reflux disease, unspecified whether esophagitis present Other intestinal malabsorption Expected: 05/17/2021, Expires: 05/17/2022 [facility] Comment on above: Expected: 05/17/2021, Expires: 2 Start: 05-17-2021 End: 05-17-2022 NOVEL CORONAVIRUS LAB 1 - NASOPHARYNGEAL NOVEL CORONAVIRUS LAB 1 - NASOPHARYNGEAL Microbiology STAT Screening for viral disease Expected: 05/17/2021, Expires: 05/17/2022 [facility] Comment on above: Expected: 05/17/2021, Expires: 2 Start: 05-17-2021 End: 05-17-2022 Standard ECG ECG ECG Routine S/P laparoscopic sleeve gastrectomy TONEY on CPAP Morbid obesity with body mass index of 50 or higher Gastroesophageal reflux disease, unspecified whether esophagitis present Other intestinal malabsorption Expected: 05/17/2021, Expires: 05/17/2022 [facility] Comment on above: Expected: 05/17/2021, Expires: 2 Start: 05-17-2021 End: 05-17-2022 Thyrotropin [Units/volume] in Serum or Plasma TSH Lab Routine S/P laparoscopic sleeve gastrectomy TONEY on CPAP Morbid obesity with body mass index of 50 or higher Gastroesophageal reflux disease, unspecified whether esophagitis present Other intestinal malabsorption Expected: 05/17/2021, Expires: 05/17/2022 [facility] Comment on above: Expected: 05/17/2021, Expires: 2 Start: 05-17-2021 End: 05-17-2022 VITAMIN B1 VITAMIN B1 Lab Routine S/P laparoscopic sleeve gastrectomy TONEY on CPAP Morbid obesity with body mass index of 50 or higher Gastroesophageal reflux disease, unspecified whether esophagitis present Other intestinal malabsorption Expected: 05/17/2021, Expires: 05/17/2022 [facility] Comment on above: Expected: 05/17/2021, Expires: 2 Start: 05-17-2021 End: 05-17-2022 VITAMIN D (25-HYDROXY,TOTAL) VITAMIN D (25-HYDROXY,TOTAL) Lab Routine S/P laparoscopic sleeve gastrectomy TONEY on CPAP Morbid obesity with body mass index of 50 or higher Gastroesophageal reflux disease, unspecified whether esophagitis present Other intestinal malabsorption Expected: 05/17/2021, Expires: 05/17/2022 [facility] Comment on above: Expected: 05/17/2021, Expires: 2 Start: 05-17-2021 End: 05-17-2022 ZINC, SERUM ZINC, SERUM Lab Routine S/P laparoscopic sleeve gastrectomy TONEY on CPAP Morbid obesity with body mass index of 50 or higher Gastroesophageal reflux disease, unspecified whether esophagitis present Other intestinal malabsorption Expected: 05/17/2021, Expires: 05/17/2022 [facility] Comment on above: Expected: 05/17/2021, Expires: 2 Start: 02-27-2021 Influenza vaccination INFLUENZA VACCINE (#1) [facility] Start: 04-06-2020 End: 04-06-2021 FL UGI FL UGI Imaging Routine S/P laparoscopic sleeve gastrectomy Expected: 04/06/2020, Expires: 04/06/2021 [place] Comment on above: Expected: 04/06/2020, Expires: 1 Start: 02-28-2020 Influenza vaccination Flu vaccine (#1) [place] Start: 02-27-2020 Pneumococcal 0-64 years Vaccine (2 of 3 - PPSV23) Pneumococcal 0-64 years Vaccine (2 of 3 - PPSV23) [place] Start: 08-31-2019 Hepatitis B Vaccine (3 of 3 - 19+ 3-dose series) Hepatitis B Vaccine (3 of 3 - 19+ 3-dose series) [facility] Start: 2015 HPV TESTING HPV TESTING [facility] Start: 2015 Screening for malignant neoplasm of cervix HPV Testing [facility] Start: 10-16-2011 PAP TESTING PAP TESTING [facility] Start: 10-16-2011 Screening for malignant neoplasm of cervix Pap Testing [facility] Start: 10-15-2009 Screening for malignant neoplasm of cervix Cervical Cancer Screening [facility] Start: 2006 Screening for malignant neoplasm of cervix [facility] Start: 2004 Third diphtheria, tetanus and acellular pertussis (DTaP) vaccination TDAP (ADULT) [facility] Start: 2004 Urine microalbumin profile DTAP,TDAP,TD (1 - Tdap) [facility] Start: 2003 Anxiety Screening Anxiety Screening [facility] Start: 2003 Depression Screening Depression Screening [facility] Start: 2003 HEPATITIS C SCREENING HEPATITIS C SCREENING [facility] Start: 2003 Hepatitis C screening Hepatitis C Screening [facility] Start: 2003 HIV SCREENING HIV SCREENING [facility] Start: 2003 HIV screening HIV Screening [facility] Start: 2003 Tetanus vaccination TETANUS [facility] Start: 2000 HIV screening [facility] Start: 1995 Meningococcal B vaccine (1 of 4 - Increased Risk Bexsero 2-dose series) Meningococcal B vaccine (1 of 4 - Increased Risk Bexsero 2-dose series) [place] Start: 1990 COVID-19 VACCINE (1) COVID-19 VACCINE (1) [facility] Start: 1986 Varicella vaccine (1 of 2 - 2-dose childhood series) Varicella vaccine (1 of 2 - 2-dose childhood series) [place] Start: 1985 HEPATITIS B (1 of 3 - 3-dose series) HEPATITIS B (1 of 3 - 3-dose series) [facility] Start: 1985 Hepatitis C antibody, confirmatory test HEPATITIS C VIRUS SCREENING [facility] End: 04-02-2020 COVID-19 Ambulatory COVID-19 Ambulatory Lab Routine Preop testing 1 Occurrences starting 04/02/2020 until 04/02/2020 [place] Comment on above: 1 Occurrences starting 04/02/2020 until 04/02/2020 End: 12-04-2022 Ct abdomen & pelvis w/contrast material CT ABD/PEL W IVCON Radiology Routine History of sleeve gastrectomy Gastric fistula 1 Occurrences starting 11/04/2021 until 12/04/2022 [facility] Work Phone: Comment on above: 1 Occurrences starting 11/04/2021 until 12/04/2022 End: 09-23-2022 ECG COMPLETE ECG COMPLETE ECG Routine TONEY on CPAP Gastroesophageal reflux disease, unspecified whether esophagitis present Class 3 severe obesity with serious comorbidity and body mass index (BMI) of 60.0 to 69.9 in adult, unspecified obesity type (HCC) Postoperative malabsorption 1 Occurrences starting 09/23/2021 until 09/23/2022 [facility] Work Phone: Comment on above: 1 Occurrences starting 09/23/2021 until 09/23/2022 End: 05-31-2023 ECG COMPLETE ECG COMPLETE ECG Routine Abnormal weight gain Preop testing Snoring Sleep-disordered breathing Fatigue, unspecified type S/P bariatric surgery BMI 70 and over, adult (HCC) 1 Occurrences starting 06/04/2022 until 05/31/2023 [facility] Work Phone: Comment on above: 1 Occurrences starting 06/04/2022 until 05/31/2023 End: 03-10-2024 ECG COMPLETE ECG COMPLETE ECG Routine Pre-op evaluation Morbid obesity with body mass index of 60.0-69.9 in adult ([facility]) Gastroesophageal reflux disease, unspecified whether esophagitis present TONEY on CPAP Bipolar affective disorder, remission status unspecified ([facility]) Thrombocytosis Migraine without status migrainosus, not intractable, unspecified migraine type 1 Occurrences starting 03/10/2023 until 03/10/2024 [facility] Work Phone: Comment on above: 1 Occurrences starting 03/10/2023 until 03/10/2024 Oxygen therapy [[facility] Data Set] Initiate Oxygen Therapy Protocol Respiratory Care Routine Daily until [facility]: Daily until discontinued starting 2019 Phase I & II - meter ed glucose Phase I & II - metered glucose Point of Care Testing Routine As Needed until discontinued starting 04/06/2020 [facility] [employer] Comment on above: As Needed until discontinued starting End: 05-31-2023 Polysomnogram POLYSOMNOGRAM (PSG) Procedures Routine Abnormal weight gain Preop testing Snoring Sleep-disordered breathing Fatigue, unspecified type S/P bariatric surgery BMI 70 and over, adult ([facility]) 1 Occurrences starting 06/04/2022 until 05/31/2023 [facility] Work Phone: Comment on above: 1 Occurrences starting 06/04/2022 until 05/31/2023 End: 10-23-2022 Radiologic exam chest 2 views XR CHEST 2V FRONTAL/LAT Radiology Routine TONEY on CPAP Gastroesophageal reflux disease, unspecified whether esophagitis present Class 3 severe obesity with serious comorbidity and body mass index (BMI) of 60.0 to 69.9 in adult, unspecified obesity type ([facility]) Postoperative malabsorption 1 Occurrences starting 09/23/2021 until 10/23/2022 [facility] Work Phone: Comment on above: 1 Occurrences starting 09/23/2021 until 10/23/2022 End: 05-18-2023 Radiologic exam chest 2 views XR CHEST 2V FRONTAL/LAT Radiology Routine BMI 70 and over, adult (HCC) Gastroesophageal reflux disease, unspecified whether esophagitis present 1 Occurrences starting 04/18/2022 until 05/18/2023 [facility] Work Phone: Comment on above: 1 Occurrences starting 04/18/2022 until 05/18/2023 End: 07-01-2023 Radiologic exam chest 2 views XR CHEST 2V FRONTAL/LAT Radiology Routine Abnormal weight gain Preop testing Snoring Sleep-disordered breathing Fatigue, unspecified type S/P bariatric surgery BMI 70 and over, adult (HCC) 1 Occurrences starting 06/04/2022 until 07/01/2023 [facility] Work Phone: Comment on above: 1 Occurrences starting 06/04/2022 until 07/01/2023 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 Procedures Routine BMI 70 and over, adult (HCC) Gastroesophageal reflux disease, unspecified whether esophagitis present Ordered: 04/18/2022 [facility] Work Phone: Comment on above: Ordered: 04/18/2022 Surgical Pathology Surgical Path ology Lab Routine Release Upon Ordering for 1 Occurrences starting 04/06/2020 [place] [place], [place] Comment on above: Release Upon Ordering [...] (HCC) 1 Occurrences starting 09/23/2021 until 10/23/2022 [facility] Work Phone: Comment on above: 1 Occurrences starting 09/23/2021 until 10/23/2022 End: 12-04-2022 XR UPPER GI SINGLE CONTRAST XR UPPER GI SINGLE CONTRAST Radiology Routine History of sleeve gastrectomy Gastric fistula 1 Occurrences starting 11/04/2021 until 12/04/2022 [facility] Work Phone: Comment on above: 1 Occurrences starting 11/04/2021 until 12/04/2022 [facility] Immunizations Immunization Date Immunization Notes Care Provider Octavio wu 06-13-2021 Influenza, injectabl e, Madin [place] Canine Kidney, preservative free, quadrivalent Pacc 2 Work Phone: [facility] 06-13-2021 influenza virus vacc ine, unspecified formulation Pacc 2 Work Phone: [facility] 01-04-2020 meningococcal oligosaccharide (groups A, C, Y and W-135) diphtheria toxoid conjugate vaccine (MCV4O) Pacc 2 Work Phone: [facility] 01-04-2020 meningococcal vaccin e of unknown formulation and unknown serogroups [place], [place] 01-02-2020 pneumococcal conjuga te vaccine, 13 valent Pacc 2 Work Phone: [facility] 01-02-2020 tuberculin skin test ; purified protein derivative solution, intradermal Amina Nieto MD Work Phone: [facility] 12-26-2019 tuberculin skin test ; purified protein derivative solution, intradermal Amina Nieto MD Work Phone: [facility] 08-11-2019 tetanus toxoid, redu herbie diphtheria toxoid, and acellular pertussis vaccine, adsorbed Pacc 2 Work Phone: [facility] 06-20-2019 influenza, injectabl e, quadrivalent, preservative free Pacc 2 Work Phone: [facility] 06-07-2019 influenza, injectabl e, quadrivalent, preservative free Pacc 2 Work Phone: [facility] 05-30-2019 influenza, high dose seasonal, preservative-free Pac 2 Work Phone: [facility] 04-04-2019 hepatitis B vaccine, adult dosage Pacc 2 Work Phone: [facility] 03-02-2019 hepatitis B vaccine, adult dosage Pac 2 Work Phone: [facility] 05-12-2017 influenza, injectabl e, quadrivalent, preservative free Pac 2 Work Phone: [facility] 04-27-2015 influenza, injectabl e, madin [place] canine kidney, preservative free Pacc 2 Work Phone: [facility] 12-18-2014 haemophilus influenz ae type b vaccine, PRP-T conjugate Pac 2 Work Phone: [facility] 12-18-2014 meningococcal oligosaccharide (groups A, C, Y and W-135) diphtheria toxoid conjugate vaccine (MCV4O) Pac 2 Work Phone: [facility] Payers Date Payer Category Payer Medicaid [id number] 2022 Self-pay [id number] 2020 Medicaid [id number] 2020 Unknown [id number] 1.2.840.279724.1.13.172.2.7.3.6 [id number] 2014 Unknown [id number] 1985 Unknown [id number] 2.16.840.1.652051.3.579.2.177 1985 Unknown [id number] 2.16.840.1.606208.3.579.2.173 1985 Unknown [id number] 2.16.840.1.884722.3.579.2.175 1985 Unknown [id number] 2.16.840.1.037299.3.579.2.593 1985 Unknown [id number] 2.16.840.1.080318.3.579.2.593 1985 Unknown [id number] 2.16.840.1.110840.3.579.2.593 1985 Unknown [id number] 2.16.840.1.636593.3.579.2.593 1985 Unknown [id number] 2.16.840.1.635204.3.579.2.593 1985 Unknown [id number] 2.16.840.1.549534.3.579.2.593 1985 Unknown [id number] 2.16.840.1.107576.3.579.2.593 1985 Unknown [id number] 2.16.840.1.180072.3.579.2.593 1985 Unknown [id number] 2.16.840.1.177119.3.579.2.1286 1985 Unknown [id number] 2.16.840.1.278628.3.579.2.1285 1985 Unknown [id number] 2.16.840.1.458629.3.579.2.1286 1985 Unknown [id number] 2.16.840.1.563155.3.579.2.1285 1985 Unknown [id number] 2.16.840.1.369177.3.579.2.128 1985 Unknown [id number] 2.16.840.1.880584.3.579.2.1285 1985 Unknown [id number] 2.16.840.1.502275.3.579.2.1285 1985 Unknown [id number] 2.16.840.1.125658.3.579.2.1285 1985 Unknown [id number] 2.16.840.1.340420.3.579.2.1286 1985 Unknown [id number] 2.16.840.1.905160.3.579.2.9 1985 Unknown [id number] 2.16.840.1.207853.3.579.2.1259 1985 Unknown [id number] 2.16.840.1.542557.3.579.2.9 1985 Unknown [id number] 2.16.840.1.675527.3.579.2.9 1985 Unknown [id number] 2.16.840.1.309654.3.579.2.9 1985 Unknown [id number] 2.16.840.1.292909.3.579.2.9 1985 Unknown [id number] 2.16.840.1.625882.3.579.2.9 1985 Unknown [id number] 2.16.840.1.682138.3.579.2.9 1985 Unknown [id number] 2.16.840.1.710113.3.579.2.9 1985 Unknown [id number] 2.16.840.1.477102.3.579.2.9 1985 Unknown [id number] 2.16.840.1.486167.3.579.2.1259 1959 Unknown [id number] 2.16.840.1.500146.19 Unknown [employer] Unknown [id number] 2.16.840.1.747750.3.579.2.531 Unknown [id number] 2.16.840.1.484873.3.579.2.531 Social History Date Type Detail Facility Start: 04-06-2020 End: 03-10-2023 Tobacco smoking status NHIS Former smoker [facility] Start: 04-06-2020 Tobacco use and exposure Former user [place] Start: 04-06-2020 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) [place] Start: 1985 Sex Assigned At Not on file [place] Start: 10-25-2021 End: 02-12-2022 Exposure to SARS-CoV-2 (event) Not sure [place] Start: 05-17-2021 Tobacco smoking stat us NHIS Never smoked tobacco [facility] Start: 05-17-2021 End: 03-10-2023 Tobacco use and exposure Smokeless tobacco non-user [facility] Start: 05-17-2021 Alcohol intake Lifetime non-d suresh (finding) [facility] Start: 12-27-2008 End: 12-27-2013 History of tobacco use Current smoker [facility] Start: 12-27-2008 End: 12-27-2013 History of tobacco use Cigarette Smoker [facility] Start: 05-06-2019 End: 01-15-2023 Cigarettes smoked current (pack per day) - Reported 0.5 [facility] 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; Start: 09-23-2021 End: 11-02-2023 Alcohol intake Ex-drinker (finding) [facility] Start: 09-23-2021 History SDOH Alcohol Comment None since 2012 [facility] Start: 1985 Sex Assigned At Female C [facility] Start: 12-05-2021 End: 01-15-2023 Sex Assigned At [facility] Adult Depression Screening Assessment 0 [facility] Start: 07-09-2021 Gender identity Identifies as female gender (finding) [facility] Start: 07-09-2021 Sexual orientation Heterosexual (davide vital) [facility] Has the [employer], or [employer] threatened to shut off services in your home in past 12Mo No [facility] (I/We) worried wheth er (my/our) food would run out before (I/we) got money to buy more. Never true [facility] Clinical Notes 05-17-2021 to 11-03-2023 Amina Nieto MD - 11/03/2023 11:00 AM EDTPatient Jayshree Rizvi APRN.KATTY - 11/02/2023 12:52 PM EDTPatient InstructionsSoRupinder gaston, RD - 11/02/2023 9:45 AM EDTPatient Instructions Note Date & Type Note Facility 11-03-2023 History of Presen t illness Narrative I have communicated my name and active licensure. The patient's identity and physical location were verified at the time of this visit. Either the patient or their legal account retention representative has been informed of the risks [...] loss: 8.623 kg (19 lb 0.2 oz) [place] weight: 66.1 kg (145 lb 10.6 oz) Excess weight: 109.9 kg (242 lb 5.6 oz) % of excess body weight lost: 8.623 kg (19 lb 0.2 oz) (7.84% of excess weight loss) COMPLICATIONS SINCE LAST VISIT?: NONE DIET INTAKE: tolerates Phase V diet See recent Tobacco Curer appointment -B: protein shake, -snack: Oikos bkft [...] which included preparing to see the patient, [id number] patient care, obtaining and/or reviewing separately obtained history, counseling and educating the patient/family/caregiver, ordering medications, tests, or procedures, and care coordination (not separately reported). (OTHER): -11/02/23 OV BMI/MTanya Huffman -11/02/23 OV BMI/Nutrition/ATanya Colbert CARDIAC: -Procedure Date : Mar 10 2023 EKG Diagnosis: NORMAL SINUS RHYTHM NORMAL ECG documented in this encounter [facility] 11-03-2023 Note HNO ID: [id number] Author: AMINA NIETO MD Service: ? Author Type: Physician Type: Progress Notes Filed: 11/04/2023 16:46 Note Text: I have communicated my name and active licensure. The patient's identity and physical location were verified at the time of this visit. Either the patient or their legal account retention representative has been informed of the risks [...] loss: 8.623 kg (19 lb 0.2 oz) [place] weight: 66.1 kg (145 lb 10.6 oz) Excess weight: 109.9 kg (242 lb 5.6 oz) % of excess body weight lost: 8.623 kg (19 lb 0.2 oz) (7.84% of excess weight loss) COMPLICATIONS SINCE LAST VISIT?: NONE DIET INTAKE: tolerates Phase V diet See recent Tobacco Curer appointment -B: protein shake, -snack: Oikos bkft [...] Today: See E (more content not included)... [facility] 11-02-2023 Instructions Jayshree Huffman APRN.CNP - 11/02/2023 4:43 PM EDT Please make a follow up with Dr Nieto for help with further weight loss. You can call the [facility] [phone] to schedule. Let me know if you have trouble getting an appointment documented in this encounter [facility] 11-02-2023 Note HNO ID: [id number] Author: JAYSHREE HUFFMAN APRN.CNP Service: ? Author Type: Nurse Practitioner Type: Progress Notes Filed: 11/02/2023 16:45 Note Text: BMI SURGERY Post Op Clinic Note - virtual visit I have communicated my name and active licensure. The patient's identity and physical location were verified at the time of this visit. Either the patient or their legal account retention representative has been informed of the risks [...] loss: 8.623 kg (19 lb 0.2 oz) [place] weight: 66.1 kg (145 lb 10.6 oz) [...] deli black forest 3 slices and cheese (peruvian 2 slices) Snack yesterday - 000 yogurt [...] tobacco given increased (more content not included)... [facility] 11-02-2023 History of Presen t illness Narrative BMI SURGERY Post Op Clinic Note - virtual visit I have communicated my name and active licensure. The patient's identity and physical location were verified at the time of this visit. Either the patient or their legal account retention representative has been informed of the risks [...] loss: 8.623 kg (19 lb 0.2 oz) [place] weight: 66.1 kg (145 lb 10.6 oz) [...] deli [place] 3 slices and cheese (peruvian 2 slices) Snack yesterday - 000 yogurt [...] 4 - Moderate documented in this encounter [facility] 11-02-[address] - 11/02/2023 10:34 AM EDT Reviewed nutrition principles of: 1. Continue to take all recommended vitamin/minerals -ProCare DS/LEIDA Bariatric multivitamin with 60 mg Iron (1x per day) AND 2556-8992 mg calcium citrate daily taken in divided [...] Follow up: 6 months post op, scheduling [phone] documented in this encounter [facility] 11-02-2023 History of Presen t illness Narrative I have communicated my name and active licensure. The patient's identity and physical location were verified at the time of this visit. Either the patient or their legal account retention representative has been informed of the risks [...] Rate: 2344 Energy needs for weight loss 5528-7482 kcal/day (10-15 harpreet/kg current weight) Protein needs: 96-128 grams protein per day (1.2 g/kg IBW kg) Reviewed nutrition principles of: 1. Continue to take all recommended vitamin/minerals -ProCare DS/LEIDA Bariatric multivitamin with 60 mg Iron (1x per day) AND 7843-6259 mg calcium citrate daily taken in divided [...] Follow up: 6 months post op, scheduling [phone] Appointment Start Time: 9:45am Appointment End Time: 10:20am Time Spent on Consult: 35 minutes - Group Rupinder Colbert RD documented in this encounter [facility] 11-02-2023 Note HNO ID: [id number] Author: RUPINDER COLBERT RD Service: ? Author Type: Registered Dietitian Type: Progress Notes Filed: 11/02/2023 10:34 Note Text: I have communicated my name and active licensure. The patient's identity and physical location were verified at the time of this visit. Either the patient or their legal account retention representative has been informed of the risks [...] Rate: 2344 Energy needs for weight loss 7437-0450 kcal/day (10-15 harpreet/kg current weight) Protein needs: 96-128 grams protein per day (1.2 g/kg IBW kg) Reviewed nutrition principles of: 1. Continue to take all recommended vitamin/minerals -ProCare DS/LEIDA Bariatric multivitamin with 60 mg Iron (1x per day) AND 3546-8610 mg calcium citrate daily taken in divided [...] Follow up: 6 months post op, scheduling [phone] Appointment Start Time: 9:45am Appointment End Time: 10:20am Time Spent on Consult: 35 minutes - Group Rupinder Colbert RD [facility] 09-07-2023 Note HNO ID: [id number] Author: JAYSHREE HUFFMAN APRN.SAW CLEANER Service: ? Author Type: Nurse Practitioner Type: [...] loss: 6.128 kg (13 lb 8.2 oz) [place] weight: 66.1 kg (145 lb 10.6 oz) [...] Orders FOLLOW UP: as scheduled Jayshree Huffman APRN.[facility] 09-07-2023 History of Presen t [...] loss: 6.128 kg (13 lb 8.2 oz) [place] weight: 66.1 kg (145 lb 10.6 oz) [...] Jayshree Huffman APRN.CNP documented in this encounter [facility] 08-31-[address] - 08/31/2023 12:14 PM EST Reviewed nutrition principles of: 1. Continue to take all recommended vitamin/minerals - ProCare DS/LEIDA Bariatric multivitamin with 60 mg Iron (1x per day) AND 5550-6347 mg calcium citrate daily 2. Protein goal: [...] try softer vegetables such as broccoli florets, Long lettuce, red-leaf lettuce or Sherrill lettuce. Remember to chew vegetables thoroughly (chew 25 times) and swallow only when chewing has made it into a mushy pureed consistency. If you have trouble with gas, avoid eating gas-producing vegetables such as onions, cauliflower, garlic, scallions, leeks, [place] sprouts and cabbage. Avoid starchy vegetables such as potatoes (sweet and white), yams, yucca, plantain and corn at this time. Nutrition Monitoring & Evaluation: BMI < 60 Criteria: weight check and patient update Need for Follow up: 3 months post op, scheduling [phone] documented in this encounter [facility] 08-31-2023 Note HNO ID: [id number] Author: CHRISTOPHER SANTIAGO, PhD Service: ? Author Type: Psychologist Type: Progress Notes Filed: 08/31/2023 11:36 Note Text: [facility] Cost Center: [facility] Billing code: Gautam CPT Code: 77155 GROUP PSYCHOTHERAPY 90080 Brief Emotional/Behavioral Assessment with scoring/documentation (3 units) [...] a copy of the consent form on [employer]. The patient consented to a virtual visit and their location was confirmed. I have communicated my name and active licensure. The patient's identity and physical location were verified at the time of this visit. Either the patient or their legal account retention representative has been informed of the risks [...] [employer] (more content not included)... [facility] 08-31-2023 History of Presen t illness Narrative I have communicated my name and active licensure. The patient's identity and physical location were verified at the time of this visit. Either the patient or their legal account retention representative has been informed of the risks [...] Rate: 2308 Energy needs for weight loss 9710-3479 kcal/day (10-15 harpreet/kg current weight) Protein needs: 96-128 grams protein per day (1.2 g/kg IBW kg) Reviewed nutrition principles of: 1. Continue to take all recommended vitamin/minerals - ProCare DS/LEIDA Bariatric multivitamin with 60 mg Iron (1x per day) AND 3663-1578 mg calcium citrate daily 2. Protein goal: [...] broccoli florets, [place] lettuce, red-leaf lettuce or Sherrill lettuce. Remember to chew vegetables thoroughly (chew 25 times) and swallow only when chewing has made it into a mushy pureed consistency. If you have trouble with gas, avoid eating gas-producing vegetables such as onions, cauliflower, garlic, scallions, leeks, [place] sprouts and cabbage. Avoid starchy vegetables such as potatoes (sweet and white), yams, yucca, plantain and corn at this time. Nutrition Monitoring & Evaluation: BMI < 60 Criteria: weight check and patient update Need for Follow up: 3 months post op, scheduling [phone] Appointment Start Time: 9:45am Appointment End Time: 10:35am Time Spent on Consult: 50 minutes - Group Rupinder Colbert RD documented in this encounter [facility] 08-31-2023 Note HNO ID: [id number] Author: RUPINDER COLBERT RD Service: ? Author Type: Registered Dietitian Type: Progress Notes Filed: 08/31/2023 12:14 Note Text: I have communicated my name and active licensure. The patient's identity and physical location were verified at the time of this visit. Either the patient or their legal account retention representative has been informed of the risks [...] Rate: 2308 Energy needs for weight loss 9082-6221 kcal/day (10-15 harpreet/kg current weight) Protein needs: 96-128 grams protein per day (1.2 g/kg IBW kg) Reviewed nutrition principles of: 1. Continue to take all recommended vitamin/minerals - ProCare DS/LEIDA Bariatric multivitamin with 60 mg Iron (1x per day) AND 7357-4212 mg calcium citrate daily 2. Protein goal: [...] it is recommended (more content not included)... [facility] 08-19-2023 Instructions Alex Monsivais, BRENDON - 08/19/2023 12:18 PM EST 1. Continue vitamins Research post-op vitamins for LEIDA/DS procedure: - Bariatric Fusion ADEK Complete Capsule (3x per day) AND 4061-3217 mg calcium citrate OR - Bariatric Advantage High ADEK Chewable Multivitamin (2x per day) AND 9071-1331 mg calcium citrate OR -Celebrate multi-ADEK chewable (3x per day) AND 6626-0841 mg calcium citrate AND 1 chewable Iron 45-60 mg AND OR -ProCare DS/LEIDA Bariatric multivitamin with 60 mg Iron (1x per day) AND 7545-5088 mg calcium citrate daily 2. Protein goal: [...] at 1 month) The [facility] [place] [facility] has 2 virtual support group meetings: This is the Webex link with meeting number that will be used for all of the THURSDAY virtual support groups this year, on the Thursday of each month 5:30-6:30PM Join from the meeting link [email or web address] Join by meeting number Meeting number (access code): [phone] Meeting password: [facility] The schedule with dates, times, topics, and facilitators can be found here: [email or web address] This is the Brightblue link with meeting number that will be used for the Open Discussion ( Food for Thought ) support group on the First Thursday of each month 5:30-6:30PM Join from the meeting link [email or web address] Join by meeting number Meeting number (access code): [phone] Meeting password: [email or web address] Hope to see you there! Nutrition Monitoring & Evaluation: Advance diet to phase 3 by next visit Criteria: patient recall Need for Follow up: 1 month post op documented in this encounter [facility] 08-19-2023 Note HNO ID: [id number] Author: ALEX MONSIVAIS RD Service: ? Author [...] visit. Either the patient or their legal account retention representative has been informed of the risks [...] yet taking recommended vitamin/minerals, however plans for [employer] ADEK + 2000 mg calcium citrate. Exercise includes walking most days. Labs not available to evaluate. Reviewed nutrition principles of: 1. Continue vitamins Research post-op vitamins for LEIDA/DS procedure: - Bariatric Fusion ADEK Complete Capsule (3x per day) AND 6339-3544 mg calcium citrate OR - Bariatric Advantage High ADEK Chewable Multivitamin (2x per day) AND 7664-8061 mg calcium citrate OR -Celebrate multi-ADEK chewable (3x per day) AND 4784-8920 mg calcium citrate AND 1 chewable Iron 45-60 mg AND OR -ProCare DS/LEIDA Bariatric multivitamin with 60 mg Iron (1x per day) AND 5119-1315 mg calcium citrate daily 2. Protein goal: [...] at 1 month) The [facility] [place] [facility] has 2 virtual support group meetings: This is the Brightblue link with meeting number that will be used for all of the THURSDAY virtual support groups this year, on the Thursday of each month 5:30-6:30PM Join from the meeting link [email or web address] Join by meeting number Meeting number (access code): [phone] Meeting password: [email or web address] The schedule with dates, times, topics, and facilitators can be found here: [email or web address] This is the Brightblue link with meeting number that will be used for the Open Discussion ( Food for Thought ) support group on the Thursday of each month 5:30-6:30PM Join from the meeting link [email or web address] Join by meeting number Meeting number (access code): [phone] Meeting password: [email or web address] Hope to see you there! Nutrition Monitoring AND Evaluation: Advance diet to phase 3 by next visit Criteria: patient recall Need for Follow up: 1 month (more content not included)... [facility] 08-19-2023 History of Presen t illness [...] visit. Either the patient or their legal account retention representative has been informed of the risks [...] yet taking recommended vitamin/minerals, however plans for [employer] ADEK + 2000 mg calcium citrate. Exercise includes walking most days. Labs not available to evaluate. Reviewed nutrition principles of: 1. Continue vitamins Research post-op vitamins for LEIDA/DS procedure: - Bariatric Fusion ADEK Complete Capsule (3x per day) AND 5424-3643 mg calcium citrate OR - Bariatric Advantage High ADEK Chewable Multivitamin (2x per day) AND 6388-7759 mg calcium citrate OR -Celebrate multi-ADEK chewable (3x per day) AND 6389-9463 mg calcium citrate AND 1 chewable Iron 45-60 mg AND OR -ProCare DS/LEIDA Bariatric multivitamin with 60 mg Iron (1x per day) AND 2246-8399 mg calcium citrate daily 2. Protein goal: [...] at 1 month) The [facility] [place] [facility] has 2 virtual support group meetings: This is the Brightblue link with meeting number that will be used for all of the THURSDAY virtual support groups this year, on the Thursday of each month 5:30-6:30PM Join from the meeting link [email or web address] Join by meeting number Meeting number (access code): [phone] Meeting password: [email or web address] The schedule with dates, times, topics, and facilitators can be found here: [email or web address] This is the Brightblue link with meeting number that will be used for the Open Discussion ( Food for Thought ) support group on the Thursday of each month 5:30-6:30PM Join from the meeting link [email or web address] Join by meeting number Meeting number (access code): [phone] Meeting password: [email or web address] Hope to see you there! Nutrition Monitoring & Evaluation: Advance diet to phase 3 by next visit Criteria: patient recall Need for Follow up: 1 month post op Appointment Start Time: 11:45 AM Appointment End Time: 12:15 PM Time Spent on Consult: 30 minutes - Group Alex Monsivais RD documented in this encounter [facility] 08-17-2023 Note HNO ID: [id number] Author: JAYSHREE HUFFMAN APRN.SAW CLEANER Service: ? Author Type: Nurse Practitioner Type: [...] loss: 8.2 kg (18 lb 1.2 oz) [place] weight: 66.1 kg (145 lb 10.6 oz) [...] refilled zofran Activity: (more content not included)... [facility] 08-17-2023 History of Presen t illness [...] loss: 8.2 kg (18 lb 1.2 oz) [place] weight: 66.1 kg (145 lb 10.6 oz) [...] 1 month post op visit. Jayshree Huffman APRN.CNP documented in this encounter [facility] 08-13-2023 Miscellaneous Notes BMI SPECIALTY CARE [...] appt. Reminded patient of how to reach [facility] or their surgeons office. Patient reminded to seek medical attention if they develop chest pain, a sudden onset of shortness of breath or persistent pain in the calf of their legs - BEST TO ALWAYS present to [facility] hospital where you had your surgery Patient verbalized understanding of all advice and instructions given. Niki Peterson RN documented in this encounter [facility] 08-11-2023 Note HNO ID: [id number] Author: ?, ?, ? Service: ? Author Type: ? Type: Plan of Care Filed: 08/11/2023 17:07 Note Text: PHARMACY BEDSIDE DELIVERY SERVICE Patient Name: Susi Ortiz The marked outpatient medications were Filled at: [facility] and delivered to the patient's bedside to [facility] Medication List START taking these medications methocarbamol [...] mg tablet Commonly known as: ABBEY López (Gas Refrigerator Servicer) PAGER: [phone] August 11, 2023 5:05 PM [facility] 08-11-2023 Note HNO ID: [id number] Author: GLENIS NAZARIO MD Service: General Surgery Author Type: Resident Type: Progress Notes Filed: 08/11/2023 07:06 Note Text: General Surgery Progress Note Name: Susi Ortiz [id number] ASSESSMENT AND PLAN Susi Ortiz is a [...] Nazario MD General Surgery, Resident Please contact [place] [facility] Team pager for any questions [phone] during the daytime hours from 6a to 6p. Contact [phone] for nights and weekends Subjective -No acute [...] MG 2.0 1.8 1.8 Imaging None today [facility] 08-10-2023 Note HNO ID: [id number] Author: GLENIS NZAARIO MD Service: General Surgery Author Type: Resident Type: Progress Notes Filed: 08/10/2023 08:01 Note Text: General Surgery Progress Note Name: Susi Ortiz [id number] ASSESSMENT AND PLAN Susi Ortiz is a [...] Nazario MD General Surgery, Resident Please contact [facility] Team pager for any questions [phone] during the daytime hours from 6a to 6p. Contact [phone] for nights and weekends Subjective -No acute [...] 97 MG 1.8 1.8 Imaging None today [facility] 08-09-2023 Note HNO ID: [id number] Author: ANGELA COPELAND MD Service: General Surgery Author Type: Physician Type: Progress Notes Filed: 08/09/2023 09:41 Note Text: General Surgery Progress Note Name: Susi Jeanenship Bed: [address]/GO3G-60 Date: August 08, 2023 ASSESSMENT AND PLAN [...] staff Patrica Anaya MD General Surgery, Resident [phone] Please contact [facility] pager for any questions [phone] during the daytime hours from 6a to 6p. Contact [phone] for nights and weekends Subjective -No acute [...] incision. Tolerating some fluids. Philly Copeland MD [facility] 08-09-2023 Note HNO ID: [id number] Author: MAYANK VELARDE RN Service: ? Author Type: Registered Nurse Type: Nursing Progress Note Filed: 08/09/2023 06:08 Note Text: 0608: page SROC pt potassium came back 3.5 this morning. [facility] 08-08-2023 Note HNO ID: [id number] Author: ANGELA COPELAND MD Service: General Surgery Author Type: Physician Type: Progress Notes Filed: 08/08/2023 09:33 Note Text: General Surgery Progress Note Name: Susi Ortiz [facility]CI0P-22 Date: August 08, 2023 ASSESSMENT AND PLAN [...] No gas yet today. Philly Copeland MD [facility] 08-07-2023 Note HNO ID: [id number] Author: MAICO MCCLAIN MD Service: General Surgery Author Type: Resident Type: Progress Notes Filed: 08/07/2023 09:26 Note Text: General Surgery Progress Note Name: Susi Ortiz [facility]RY5J-[id number] Date: August 07, 2023 ASSESSMENT AND PLAN [...] this interval not displayed. Imaging None today [facility] 08-06-2023 Note HNO ID: [id number] Author: MAICO MCCLAIN MD Service: General Surgery Author Type: Resident Type: Progress Notes Filed: 08/06/2023 15:58 Note Text: General Surgery Progress Note Name: Susi Ortiz Bed: [place] [address] Date: August 06, 2023 ASSESSMENT AND PLAN [...] 2.0 -- -- 1.8 Imaging None today [facility] 08-06-2023 Note HNO ID: [id number] Author: JOE GRANDA MD Service: General Surgery [...] of VTE prophylactic dosing Joe Granda MD [facility] 08-05-2023 Note HNO ID: [id number] Author: JOE GRANDA MD Service: General Surgery Author Type: Physician Type: Progress Notes Filed: 08/05/2023 15:58 Note Text: General Surgery Progress Note Name: Susi Ortiz Bed: FV-PK3C28/FV-AW1L-31 Date: August 05, 2023 ASSESSMENT AND PLAN [...] Doing well POD 1. Joe Granda MD [facility] 08-05-2023 Note HNO ID: [id number] Author: ALMA CONNORS LSW Service: Care Management Author Type: Data Reduction Technician Type: Care Mgt Initial Assessment Filed: 08/05/2023 12:20 Note Text: CARE MANAGEMENT: ASSESSMENT AND DISCHARGE PLAN SERVICE DATE: August 05, 2023 SERVICE TIME: 12:17 PM PCP: Elizabet Simental DO, DO Primary Contact: Extended Emergency Contact Information Primary Emergency Contact: Evita Eckert [facility] Mobile Relation: Grandparent Secondary Emergency Contact: Ritchie Stephens [facility] Mobile Relation: Mother Admission Status: Inpatient Insurance Provider: TERRY BCBS [place] OF [place] Discharge Planning requested by: Per Department Practice Potential Transition Plans No Services Indicated Advance Directives Current Advance Directive: None Obstetrical Anesthesiologist Attempted to Assist with AD Completion: Yes [...] General wellness, Be able to go home [place] Explained: [place] Given: No Reason Not Given: [...] unemployed, drives. Does not utilize any DME, care home or community resources. No skilled needs identified at this time. DC transportation will be provided by family. SIGNATURE: LELAND Kumar PATIENT NAME: Susi Ortiz DATE: August 05, 2023 TIME: 12:17 PM CONTACT #: [phone] [facility] 08-05-2023 Note HNO ID: [id number] Author: RADHA LARSON MD Service: General Surgery [...] q8h - Continue NPO Radha Larson MD [facility] Pager [phone] Subjective: pain well controlled on current regimen, [...] ALLERGIES Allergen Reacti (more content not included)... [facility] 08-04-2023 Note HNO ID: [id number] Author: MARIIA AGUERO APRN.BODY SHOP MECHANIC Service: ? Author Type: Nurse Conductor/Brakeman Type: Anesthesia Procedure Notes Filed: 08/04/2023 14:30 Note Text: ANESTHESIOLOGY PROCEDURE NOTE Gastric Tube General Information Procedure Start Time/Medication Administration: 08/04/2023 1:15 PM Patient location during procedure: OR Indication: gastric decompression Staffing Anesthesiologist: Amanda Alcantar DO BODY SHOP MECHANIC: Mariia Aguero APRN.BODY SHOP MECHANIC Performed by: CEHKO Procedure Details Type: Nasogastric tube Cortrak monitor used: No Size: 18 Fr cm Distance Advanced: 55 cm Securement: taped to the nose Placement Confirmation: KUB ordered/pending Successful Placement: yes Post-Procedure Details SIGNATURE: Mariia Aguero APRN.BODY SHOP MECHANIC PATIENT NAME: Susi Naqvi Ortiz DATE: August 04, 2023 TIME: 2:23 PM CSN: [id number] [facility] 08-04-2023 Note HNO ID: [id number] Author: JUDE LOPEZ DO Service: Anesthesiology Author Type: Anesthesiologist Type: Anesthesia Procedure Notes Filed: 08/04/2023 12:19 Note Text: ANESTHESIOLOGY PROCEDURE NOTE Epidural Block General Information Procedure Start Time/Medication Administration: 08/04/2023 7:27 AM Patient location during procedure: pre-op Informed Consent Consent Obtained: Written [place] Protocol A moment to CARE was completed. [...] 3 Needle and Epidural Catheter Needle type: Ashleywilliam Needle gauge: 17G Needle length: 6 in [...] August 04, 2023 TIME: 12:10 PM CSN: [id number] [facility] 08-04-2023 Note HNO ID: [id number] Author: MARIIA AGUERO APRN.BODY SHOP MECHANIC Service: ? Author Type: Nurse Conductor/Brakeman Type: Anesthesia Procedure Notes Filed: 08/04/2023 10:01 Note Text: ANESTHESIOLOGY PROCEDURE NOTE Airway General Information Procedure Start Time/Medication Administration: 08/04/2023 8:47 AM Patient location during procedure: OR Patient identity confirmed: arm band and patient Staffing Anesthesiologist: Amanda Alcantar DO BODY SHOP MECHANIC: Mariia Aguero APRN.BODY SHOP MECHANIC Performed by: other anesthesia staff Indications and Patient Condition Indications for airway management: anesthesia Preoxygenated: yes anesthesia circuit Patient position: sniffing Method: modified rapid sequence Difficult Mask: No Airway Accessory: oral airway Final Airway Details Final airway type: endotracheal airway Final Endotracheal Airway: ETT Cuffed: yes Successful intubation technique: video laryngoscopy Devices used: Netvibes Endotracheal tube insertion site: oral Blade size: #4 ETT size (mm): 7.5 Measured from: lips Measurement (cm): 22 Placement verified by: capnometry Cormack-Lehane Classification: grade I - full view of glottis Number of attempts at approach: 1 Airway not difficult Comments Atraumatic intubation. Dentition and lips remain the same as preop. Critical care CUSHION PADDER performed intubation. SIGNATURE: Mariia Aguero APRN.CRNA PATIENT NAME: Susi Naqvi Ortiz DATE: August 04, 2023 TIME: 9:58 AM CSN: [id number] [facility] 08-04-2023 Note HNO ID: [id number] Author: AMANDA ALCANTAR DO Service: Anesthesiology Author Type: Physician Type: Anesthesia Procedure Notes Filed: 08/04/2023 09:33 Note Text: ANESTHESIOLOGY PROCEDURE NOTE A-Line General Information Procedure Start Time/Medication Administration: 08/04/2023 9:02 AM Patient location during procedure: OR Consent Obtained: Yes Indications: continuous blood pressure monitoring Staffing Anesthesiologist: Amanda Alcantar DO BODY SHOP MECHANIC: Mariia Aguero APRN.BODY SHOP MECHANIC Performed by: anesthesiologist Preparation Sterility Preparation: hand [...] August 04, 2023 TIME: 9:32 AM CSN: [id number] [facility] 08-04-2023 Note HNO ID: [id number] Author: AMANDA ALCANTAR DO Service: Anesthesiology Author Type: Physician Type: Anesthesia Procedure Notes Filed: 08/04/2023 09:32 Note Text: ANESTHESIOLOGY PROCEDURE NOTE PIV General Information Procedure Start Time/Medication Administration: 08/04/2023 9:20 AM Patient Location: OR Staffing Anesthesiologist: Amanda Alcantar DO BODY SHOP MECHANIC: Mariia Aguero APRN.CRNA Other anesthesia staff/rotator: Mikhail, Cari, POLICY CHANGE CLERK.BODY SHOP MECHANIC Performed by: anesthesiologist Preparation Sterility Preparation: hand hygiene performed prior to procedure Site Prep: Betadine and chlorhexidine Procedure Details Indication: need for IV access Needle Size/Type: 14 gauge angiocath Orientation: Left Location: Antecubital Imaging Guidance Used: Yes Image in Chart: Yes SIGNATURE: Amanda Alcantar DO PATIENT NAME: Susi Ortiz DATE: August 04, 2023 TIME: 9:30 AM CSN: [id number] [facility] 08-03-2023 Miscellaneous Notes BMI SPECIALTY CARE COORDINATION SURGERY PRE-OP EDUCATION NOTE Phoned patient to reinforce prior pre-op instruction and answer any questions she might have. No answer. Left brief vmm including contact info for this RN and requested call back. documented in this encounter [facility] 07-21-2023 Note HNO ID: [id number] Author: EARL MCGEE RD Service: ? Author [...] visit. Either the patient or their legal account retention representative has been informed of the risks [...] Advanced Nutrition OR 5.5 packets/day Light Start [place] Breakfast Essentials mixed with 1% or skim [...] from poultry, beef, fish, seafood, eggs, cheese, Gibraltarian yogurt, cottage cheese, beans, lentils, tofu. Choose meat products that are tender, shredded and/or ground to increase tolerance. Remember to chew food well, eat slow, take small bites CHANGES IN TREATMENT: Patient met goal(s): Yes Diagnosis: has not changed. Allergies: Adhes. Lunf-Ugef-Ujupdswuiqpz, Adhesive Tape-Silicones, Augmentin [Amoxicillin-Pot Clavulanate], Keflex [Cephalexin], [...] Significant unintentional weight (more content not included)... [facility] 07-20-2023 Note HNO ID: [id number] Author: JOE GRANDA MD Service: ? Author Type: Physician Type: Progress Notes Filed: 07/20/2023 14:06 Note Text: SURGERY PREOPERATIVE VISIT NOTE Name: Susi Ortiz Medical Record: [id number] Encounter No.: [id number] Susi Ortiz is a 38 year old [...] use: Never ALLERGIES: ALLERGIES Allergen Reactions Adhes. Wnkh-Yrew-Hu* Rash Adhesive Tape-Silic* Rash Augmentin [Amoxicil* Diarrhea [...] regarding unsatisfactory weight loss as well as group home weight regain. I have also discussed medical [...] well and christian (more content not included)... [facility] 06-11-2023 Note HNO ID: [id number] Author: Heidy Dsouza RN Service: ? Author Type: ? Type: Progress Notes Filed: 06/11/2023 5:30 PM Note Text: Received approval for open LEIDA. Scheduled on 08/04/[address] Granda at . [facility] 04-30-2023 Note HNO ID: [id number] Author: Shaunna Persaud, PhD Service: ? Author Type: Psychologist Type: Progress Notes Filed: 04/30/2023 9:45 AM Note Text: [facility] Progress Note 04/30/2023 Billing code: Robert Patient did not attend, cancel, or reschedule this appointment. Shaunna Persaud, Ph.D. Clinical Health Psychologist [facility] 04-27-2023 Miscellaneous Notes This patient underwent [...] Joe Granda MD documented in this encounter [facility] 04-13-2023 Note HNO ID: [id number] Author: Rupinder Colbert RD Service: ? Author Type: Registered Dietitian Type: Progress Notes Filed: 04/13/2023 5:48 PM Note Text: Patient presented for virtual visit, however she has not yet had bariatric surgery and does not need 2 week post op visit at this time. Will be rescheduled 2 weeks before surgery once scheduled. Rupinder Colbert RD, LD [facility] 04-13-2023 History of Presen t illness Narrative Patient presented for virtual visit, however she has not yet had bariatric surgery and does not need 2 week post op visit at this time. Will be rescheduled 2 weeks before surgery once scheduled. Rupinder Colbert RD, LD documented in this encounter [facility] 04-11-2023 Note HNO ID: [id number] Author: Note, Interface Service: ? Author Type: ? Type: Progress Notes Filed: 04/11/2023 3:29 AM Note Text: Epic Scheduled Downtime: 04/11/2023 1:00:00 AM to 04/11/2023 1:28:00 AM [facility] 04-01-2023 Note HNO ID: [id number] Author: Mary Hughes MD Service: General Surgery [...] Resident For team paging 6AM-6PM during weekdays: [phone] for [facility] Team For team paging after 6PM or on weekend / holidays: [phone] for General Surgery Subjective: - No acute [...] 1006 APTT 30.3 INR 0.9 Cardiac Enzymes [facility] 03-31-2023 Note HNO ID: [id number] Author: Heber Riddle SRNA Service: ? Author Type: Student Type: Anesthesia Procedure Notes Filed: 03/31/2023 11:20 AM Note Text: ANESTHESIOLOGY PROCEDURE NOTE Airway General Information Procedure Start Time/Medication Administration: 03/31/2023 10:35 AM Patient location during procedure: OR Timeout Performed Pre-procedure: timeout performed Consent Obtained: Yes Patient identity confirmed: arm band and patient Staffing Anesthesiologist: Darrel Conklin MD BODY SHOP MECHANIC: Sheridan Claire APRN.BODY SHOP MECHANIC SRNA: Heber Riddle SRNA Performed by: LILIANA [...] March 31, 2023 TIME: 11:18 AM CSN: [id number] [facility] 03-10-2023 Instructions Shruti Alvarado APRN.SAW CLEANER - 03/10/2023 2:02 PM EDT PATIENT PREOPERATIVE INSTRUCTIONS Joe Granda MD has scheduled you for your procedure at this surgery center: [facility]: [phone] --[address] [address]. Please check in on the 1st floor [...] Procedures: - YOU MUST HAVE A RESPONSIBLE SHOE HANDLER TAKE YOU HOME. A FREIGHT REPRESENTATIVE OR PAINTING TECHNICIAN CANNOT BE MADE A RESPONSIBLE SHOE HANDLER. - We recommend that a responsible person [...] Advance Directive, please fax a copy to [phone] or email to for it to be [...] into your chart that day. Shruti Alvarado APRN.CNP documented in this encounter [facility] 03-10-2023 History and physical note HISTORY [...] medication comments found. ALLERGIES Allergen Reactions Adhes. Pavf-Ucjs-Ky* Rash Adhesive Tape-Silic* Rash Augmentin [Amoxicil* Diarrhea Keflex [Cephalexin] Rash, Itching Penicillins Hives Ultram [Tramadol Hc* Itching COVID VACCINATION STATUS: Fully vaccinated REVIEW OF SYSTEMS: PAIN ASSESSMENT: General: No weight loss, malaise or fevers. 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 No neurological symptoms or problems. Positive for Migraines on Inderal Respiratory: Positive for TONEY non compliant with CPAP , Negative for No history of current cough or dyspnea, or pneumonia in the past 6 weeks. No history of respiratory/pulmonary symptoms or problems Cardiovascular: No history of HTN requiring medication, no history of angina, CHF, PA, cardiac surgery or stents. Denies rest pain, gangrene or revascularization/amputation for PVD. No history of cardiovascular symptoms or problems. GI: See HPI : No history of dysuria, frequency or incontinence,, stones or chronic kidney disease, No difficulty urinating, nocturia > 1 time per night or hematuria COMPANY LABORER: Negative for abnormal vaginal bleeding, abnormal vaginal [...] normal intervals, reviewed by myself., reviewed by web retailer. All in Epic Assessment/Plan TONEY on CPAP Assessment: non compliant with CPAP Gastroesophageal reflux disease Assessment: stable on PPI Bipolar affective disorder (HCC) Assessment: stable on medication Denies any suicidal ideations Morbid obesity with body mass index of 60.0-69.9 in adult ([facility]) Assessment: Body mass index is 68.66 kg/m . Thrombocytosis ([facility]) Assessment: s/p splenectomy in 2014, Elevated Platelet [...] SIGNATURE: Shruti Alvarado APRN.CNP PATIENT NAME: Susi Ortiz DATE: March 10, 2023 TIME: 1:33 PM documented in this encounter [facility] 03-05-[address] - 03/05/2023 1:53 PM EDT Instructions for Liquid Diet before surgery Start the full liquid diet 3 weeks before surgery - Use only the approved protein shakes: 4.5 bottles/day Slim Fast Advanced Nutrition OR 5.5 packets/day Light Start [place] Breakfast Essentials mixed with 1% or skim [...] from poultry, beef, fish, seafood, eggs, cheese, [place]raltarian yogurt, cottage cheese, beans, lentils, tofu. Choose meat products that are tender, shredded and/or ground to increase tolerance. Remember to chew food well, eat slow, take small bites documented in this encounter [facility] 03-05-2023 Note HNO ID: [id number] Author: Mrieille Dao RD Service: ? Author Type: Registered Dietitian Type: Progress Notes Filed: 03/05/2023 1:53 PM Note Text: I have communicated my name and active licensure. The patient's identity and physical location were verified at the time of this visit. Either the patient or their legal account retention representative has been informed of the risks [...] Advanced Nutrition OR 5.5 packets/day Light Start [place] Breakfast Essentials mixed with 1% or skim [...] from poultry, beef, fish, seafood, eggs, cheese, [place]arian yogurt, cottage cheese, beans, lentils, tofu. Choose meat products that are tender, shredded and/or ground to increase tolerance. Remember to chew food well, eat slow, take small bites CHANGES IN TREATMENT: Patient met goal(s): Partially Diagnosis: has not changed. Allergies: Adhes. Ffzw-Dgno-Vwhpmmgtbgjd, Adhesive Tape-Silicones, Augmentin [Amoxicillin-Pot Clavulanate], Keflex [Cephalexin], [...] free. Avoid carbonat (more content not included)... [facility] 03-05-2023 History of Presen t illness Narrative I have communicated my name and active licensure. The patient's identity and physical location were verified at the time of this visit. Either the patient or their legal account retention representative has been informed of the risks [...] Advanced Nutrition OR 5.5 packets/day Light Start [place] Breakfast Essentials mixed with 1% or skim [...] from poultry, beef, fish, seafood, eggs, cheese, [place]arian yogurt, cottage cheese, beans, lentils, tofu. Choose meat products that are tender, shredded and/or ground to increase tolerance. Remember to chew food well, eat slow, take small bites CHANGES IN TREATMENT: Patient met goal(s): Partially Diagnosis: has not changed. Allergies: Adhes. Oqzo-Gwtc-Gmpjofzfdrpn, Adhesive Tape-Silicones, Augmentin [Amoxicillin-Pot Clavulanate], Keflex [Cephalexin], [...] mg per day Calcium Citrate https://www.bariatricfusion.com/ collections/adek/products/bariat eyq-wpziqiwskpft-luep-adek-vitam jj-qjpl-splc OR - 2 per day Bariatric Advantage High ADEK Multivitamin Capsules AND 6991-2732 mg per day Calcium Citrate AND 45-60 mg per day Iron https://www.bariatricadvantage.c om/lyua-suxh-rrbhttdzovng-capsul es OR - 2 per day Celebrate Multi-ADEK with Iron Chewable Tablets AND 9218-4422 mg per day Calcium Citrate https://Manifest Digitals.SocialVest/pr oducts/yxbqi-jkep-qbqf-iron?vari xmw=[id number] OR -1 per day ProCare DS/LEIDA Bariatric Multivitamin with 60 mg Iron AND 0881-4263 mg per day Calcium Citrate https://Paddle8/procare-h amoaq-ztwl-ifivh-bariatric-multi fgbdlxq-rvzpyrm-jd-leida/?sku=Vit -HxufTyycRU-KSOU-13ip S-LEIDA-30ct Nutrition Monitoring & Evaluation: Follow pre op diet and fluid guidelines Criteria: weight check Need for Follow up: 2 weeks post op Appointment Start Time: 1:00 pm Appointment End Time: 1:21 pm Time Spent on Consult: 21 minutes - Group SIGNATURE: Mireille Dao RD PATIENT NAME: Susi Jeanenship DATE: 03/05/2023 TIME: 12:55 PM PAGER: documented in this encounter [facility] 02-26-2023 Note HNO ID: [id number] Author: Pao Hodgson RN Service: ? Author Type: Registered Nurse Type: Progress Notes Filed: 02/26/2023 2:35 PM Note Text: Surgery date rescheduled to 03/31/2023. Pao Hodgson RN [facility] 01-15-2023 Note HNO ID: [id number] Author: Joe Granda MD Service: ? Author Type: Physician Type: Progress Notes Filed: 01/15/2023 11:40 AM Note Text: VIRTUAL VISIT PROGRESS NOTE This is a virtual visit using Outspark video visit. It required patient-provider interaction for the medical decision making as documented below. I have communicated my name and active licensure. The patient's identity and physical location were verified at the time of this visit. Either the patient or their legal account retention representative has been informed of the risks and benefits of -- and alternatives to -- treatment through a remote evaluation and consents to proceed with the evaluation remotely. PREOPERATIVE VISIT NOTE Name: Susi Jeanenship Medical Record: [id number] Encounter No.: [id number] Susi Ortiz is a 37 year old [...] for this visit. ALLERGIES Allergen Reactions Adhes. Zpbo-Uhht-Xz* Rash Adhesive Tape-Silic* Rash Augmentin [Amoxicil* Diarrhea [...] or repair, stric (more content not included)... [facility] 01-05-2023 Note HNO ID: [id number] Author: Pao Hodgson RN Service: ? Author Type: Registered Nurse Type: Progress Notes Filed: 01/30/2023 10:27 AM Note Text: Surgery date rescheduled to 03/17/2023. Pao Hodgson RN [facility] 01-05-2023 Miscellaneous Notes BMI SPECIALTY CARE COORDINATION SURGERY APPROVAL CALL [...] - Stop all ASA and NSAID products, [place] 3 fish oil, herbal products such as [...] Pt instructed to fax FMLA forms to [phone] and allow 7-10 days for completion. - Deandra video assigned. - All questions and concerns addressed and patient verbalized understanding. - Patient case reviewed. All nutrition appointments completed, psychology clearance obtained, surgeon visit and procedure type verified, medical optimization obtained and all testing complete. 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 Yes, patient has Con ABO. Pao Hodgson RN documented in this encounter [facility] 12-15-2022 Instructions Mireille Dao, RD - [...] mg per day Calcium Citrate https://www.bariatricfusion.com/ collections/adek/products/bariat kwb-hzsnuurcxuoy-clla-adek-vitam rl-uyim-glun OR - 2 per day Bariatric Advantage High ADEK Multivitamin Capsules AND 5713-3976 mg per day Calcium Citrate AND 45-60 mg per day Iron https://www.bariatricadvantage.c om/wnqa-cljw-genctkdukyuq-capsul es OR - 2 per day Celebrate Multi-ADEK with Iron Chewable Tablets AND 7938-0474 mg per day Calcium Citrate https://Manifest Digitals.SocialVest/pr oducts/zgvrn-qzqs-vfct-iron?vari qug=[id number] OR -1 per day ProCare DS/LEIDA Bariatric Multivitamin with 60 mg Iron AND 5544-3867 mg per day Calcium Citrate https://Harbor MedTech.SocialVest/procare-h tiuwu-rave-vquqo-bariatric-multi naetymz-lnpbmoo-fp-leida/?sku=Vit -JxhmUezrRX-OTRW-28ba S-LEIDA-30ct documented in this encounter [facility] 12-15-2022 Note HNO ID: [id number] Author: Mireille Dao RD Service: ? Author Type: Registered Dietitian Type: Progress Notes Filed: 12/15/2022 3:32 PM Note Text: [facility] Nutrition Therapy: Virtual Consult - Re-assessment I have communicated my name and active licensure. The patient's identity and physical location were verified at the time of this visit. Either the patient or their legal account retention representative has been informed of the risks [...] per day Calcium Citrate https://www.bariatricfusion.com/ collections/adek/products/bariat libby-multivi rsane-wvsc-lhks-iwbxohp-gmrz-dvs n OR - 2 per day Bariatric Advantage High ADEK Multivitamin Capsules AND 7731-9024 mg per day Calcium Citrate AND 45-60 mg per day Iron https://www.bariatricadChampionVillage.c om/gkyb-eyur-ovjnrvrqmqha-capsul es OR - 2 per day Celebrate Multi-ADEK with Iron Chewable Tablets AND 3996-4580 mg per day Calcium Citrate https://Novatek/pr oducts/bqmgo-oizj-xfqp-iron?vari lwn=[id number] 4765392 OR -1 per day ProCare DS/LEIDA Bariatric Multivitamin with 60 mg Iron AND 6076-3002 mg per day Calcium Citrate https://Paddle8/procare-h sbdid-qoqc-cvrzr-bariatric-multi vitamin-cap mlgf-xu-zfxy/?sku=Vit-BariCapsDS -LEIDA-30ct S-LEIDA-30ct Nutrition Monitoring AND Evaluation: Weight [...] ADEK Complete Capsule (3x per day) AND 0214-5153 mg calcium citrate https://www.bariatricfusion.com/ collections/adek/products/bariat libby-multivi ujffa-dmvz-nzqh-rmmnami-evtm-ntn n OR - Bariatric Advantage High ADEK Chewable Multivitamin (2x per day) AND 2001-1008 mg calcium citrate https://www.bariatricadvantage.c om/fgks-buea-voyrrmngneyw-capsul es OR -Celebrate multi-ADEK chewable (3x per day) AND 6784-6644 mg calcium citrate AND 1 chewable Iron 45-60 mg https://celebratePioneticss.com/pr oducts/multi-adek?lynlytj=495593 7527647 OR -ProCare DS/LEIDA Bariatric multivitamin with 60 mg Iron (1x per day) AND 5970-7541 mg calcium citrate daily https://procaren (more content not included)... [facility] 12-15-2022 History of Presen t illness Narrative [facility] Nutrition Therapy: Virtual Consult - Re-assessment I have communicated my name and active licensure. The patient's identity and physical location were verified at the time of this visit. Either the patient or their legal account retention representative has been informed of the risks [...] mg per day Calcium Citrate https://www.bariatricfusion.com/ collections/adek/products/bariat fhb-bounzlthrsfz-qubx-adek-vitam es-fjgg-gmpj OR - 2 per day Bariatric Advantage High ADEK Multivitamin Capsules AND 4908-1792 mg per day Calcium Citrate AND 45-60 mg per day Iron https://www.bariatricadvantage.c om/yngh-kpui-vuzcoshjgume-capsul es OR - 2 per day Celebrate Multi-ADEK with Iron Chewable Tablets AND 9520-4183 mg per day Calcium Citrate https://celebratePioneticss.com/pr oducts/liugk-hjfc-stye-iron?vari tom=[id number] OR -1 per day ProCare DS/LEIDA Bariatric Multivitamin with 60 mg Iron AND 4970-2066 mg per day Calcium Citrate https://Paddle8/procare-h ddmzu-kvxl-oulrn-bariatric-multi nrbpqmg-vqfkjri-um-leida/?sku=Vit -NdksKcyvGG-KZLP-15ek S-LEIDA-30ct Nutrition Monitoring & Evaluation: Weight loss [...] ADEK Complete Capsule (3x per day) AND 5018-3954 mg calcium citrate https://www.bariatricfusion.com/ collections/adek/products/bariat uij-rmtpqqcjfgyp-ptoe-adek-vitam de-qdgk-xvfj OR - Bariatric Advantage High ADEK Chewable Multivitamin (2x per day) AND 6593-6449 mg calcium citrate https://www.bariatricadvantage.c om/mlva-mhsu-jmgtmuqsqjdy-capsul es OR -Celebrate multi-ADEK chewable (3x per day) AND 9704-0977 mg calcium citrate AND 1 chewable Iron 45-60 mg https://celebratePioneticss.com/pr oducts/multi-adek?lejgari=606844 2549402 OR -ProCare DS/LEIDA Bariatric multivitamin with 60 mg Iron (1x per day) AND 5985-9703 mg calcium citrate daily https://Paddle8/procare-h zhfuc-nuyb-xdyym-bariatric-multi oxysnex-takppkj-jb-leida/?sku=Vit -NxaqUffoSM-HTMK-66rr 2. Protein goal: 77 grams protein/day. Protein [...] Advanced Nutrition OR 5.5 packets/day Light Start [place] Breakfast Essentials mixed with 1% or skim [...] 3:08 PM PAGER: documented in this encounter [facility] 12-13-2022 Evaluation note Encounter Date Diagnosis [...] that time. Patient verbalized understanding treatment plan. [facility] 06-07-2023 History of Present illness Narrative* [...] selecting actual surgery date. Heidy Dsouza RN Transport Coordinator for Cony Soler MD Covering for Joe Granda MD documented [facility] NoteEXAMINATION: XR CHEST 2 V HISTORY: [...] Electronically authenticated by: DARREL NICHOLS Date: 2022-08-12 15:04[facility]12-07-2022 Instructions* Patient Instructions* Amina Nieto MD - 06/04/2022 6:53 PM EST INSTRUCTIONS: 1) Please contact me (Dr. Nieto) if you have not heard about your test results within a few days after you had them done. Thank you: Contact information: [facility] [place] M[facility]/Attention: Dr. Nieto [address] [place] [address] 2) Please check with your insurance company regarding cost/coverage of any tests ordered prior to having them completed. Edinson Ortiz , Thank you for completing your visit today and we welcome you to the surgical program. We are sure that you will still have some additional questions and encourage you to reach out to your care provider via [employer]ee[employer] OR your Patient Navigator. Patient Navigators are assigned alphabetically by patient last name. The contact information for each Navigator is listed below. Last names A-E= Katia- Last names F-L = Joanna- Last names M-R= Neida Last names S-Z= [...] free to ask for a hard copy. [email or web address]/-/[email or web address]/[email or web address]/[email or web address]/[email or web address] [email or web address]?la=en Once you complete all of the requirements (testing, consultations, diet, etc) from each provider, please call [phone] and select option #5 to initiate insurance approval. Please note scheduling information It is important to keep track of your scheduled appointments to ensure successful completion of oursurgical program. Any missed appointments can further delay your pre-surgical work-up. [facility] does offer an opt-in option for getting text message appointment reminders. Please follow the link below if you would like to opt into this service. [email or web address] qptme-hzshytkab-uqm As part of your surgical work up, [...] these tests. You may call your local [facility] to get an appointment. - Lab work- No appointment is needed for this, you may complete at any [facility] Laboratory.These are usually fasting labs, please be sure to fast (only water permitted) for 10-12 hours priorto the test. -Sleep Study- Please call [phone] or [phone] to get this appointment set up. -Sleep Medicine Consult- (Only needed if sleep study confirms sleep apnea) Please call [phone] to schedule an appointment. Any testing that is completed outside of [facility] will need faxed to [phone]. 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) -tobacco use: non-smoker -ETOH: doesn't drink ALL: [employer] LABS: IMAGING: PROC: CARDIAC: MEDS: See Epic [...] cardiac, valvular or vascular issues *no h/o PA, CHF, CAD, no cp/palpitations Respiratory: Denies any [...] -she had labs done at her local facility-[facility]; check remaining presurgical labs, CXR, EKG (had recent CT abd); will try to get the labs from [place]; Will mail her orders so she can get them done locally and try to obtain recent labs from [facility] 2)Sleep disordered breathing: external sleep study scanned in Epic-+TONEY -check sleep study and refer to Sleep medicine-she will try to have these done locally. Amina Nieto MD I spent a total of 45 minutes on the date of the service which included preparing to see the patient, hssg-sb-xkmb patient care, completing clinical documentation, obtaining and/or reviewing separately obtained history, counseling and educating the patient/family/caregiver, ordering medications, keli ts, or procedures, and care coordination (not separately reported). documented in this encounterShel[facility]11-[facility]22 Miscellaneous Notes* Telephone Encounter - Pao [...] better option for her for weight loss group home. Pao Hodgson RN * Telephone Encounter - Jessica Rodriguez - 05/01/2022 1:55 PM EDT Pt has questions regarding upcoming surgery PH: [phone] documented in this encounterShel[facility]11-04-2022 Miscellaneous Notes* Telephone Encounter - Pao [...] switch. Joe Granda MD documented in this encounterShel[facility]10-21-2022 Miscellaneous Notes* Telephone Encounter - Pao Hodgson RN - 04/18/2022 1:34 PM EDT [facility] CARE COORDINATION SURGERY SCHEDULING CALL Received e-mail confirmation of insurance approval for bariatric surgery.Pre- operative call placed to the patient, this RN spoke with patient and agreed upon a surgery date of June 10 2022. Surgical episode request sent to [facility] surgery scheduling. Patient understands that the surgery type is partial gastrectomy with gastrojejunostomy . Creatinine level pending results Patient instructed to start pre-op 800 calorie total protein liquid diet daily beginning 2 weeks prior to surgery provided creatinine is in range. - Stop all ASA and NSAID products, [place] 3 fish oil, herbal products such as [...] Pt instructed to fax FMLA forms to [phone] and allow 7-10 days for completion. Deandra [...] ordered Pao Hodgson RN documented in this encounterSheltering [facility] Hospital10-19-2022 History of Present illness Narrative* Joe [...] which included preparing to see the patient, qjke-xt-ffdz patient care, and completing clinical documentation, test ordering, care coordination. Joe Granda MD documented in this encounterShel[facility] Hospital10-19-2022 Evaluation note* Encounter Date Diagnosis Assessment [...] Mar, Right foot pain (ICD-10 - M79.671) [facility] Other 10-14-2022 NotePROCEDURE: XR GI UPPER W [...] Electronically authenticated by: ESTELLA WHITEHEAD Date: 2022-04-11 10:21[facility]10-14-2022 NotePROCEDURE: XR GI UPPER W KUB [...] Electronically authenticated by: ESTELLA WHITEHEAD Date: 2022-04-11 10:21[facility]09-29-2022 Evaluation note* Encounter Date Diagnosis Assessment Notes Treatment Notes Treatment Clinical Notes Feb, Gastroesophageal ref lux disease, esophagitis presence not specified (ICD-10 - K21.9) [facility] Other 09-12-2022 History of Present illness Narrative* Joe Granda MD - 03/10/2022 3:37 PM EDT VIRTUAL VISIT PROGRESS NOTE This is a virtual visit using Outspark video visit. It required patient-provider interaction for [...] which included preparing to see the patient, jgat-en-zeal patient care, completing clinical documentation, obtaining and/or reviewing separately obtained history, and care coordination (not separately reported) Joe Granda MD documented in this encounterShel[facility] Hospital08-17-2022 NoteHNO ID: [id number] Author: EUSEBIA Solo Service: Radiology Author Type: [...] BY: EUSEBIA SOLO February 12, 2022 2:58 PMAIntermountain Medical [id number] History of Present illness Narrative* EUSEBIA Solo [...] 12, 2022 2:58 PM documented in this encounterSheltering [facility] Hospital08-17-2022 Nurse Note* Elizabeth Stephens RN - [...] 2022 TIME: 2:30 PM documented in this encounterSheltering [facility] Hospital07-25-2022 History of Present illness Narrative* Joe Granda MD - 01/20/2022 2:37 PM EDT VIRTUAL VISIT PROGRESS NOTE This is a virtual visit using Outspark video visit. It required patient-provider interaction for [...] for this visit. ALLERGIES Allergen Reactions Adhes. Wygm-Acji-Uu* Rash Adhesive Tape-Silic* Rash Augmentin [Amoxicil* Diarrhea [...] which included preparing to see the patient, xgtv-ki-lsrz patient care, completing clinical documentation, obtaining and/or reviewing separately obtained history, performing a medically appropriate examination, counseling and educating the pat ient/family/caregiver, ordering medications, tests, or procedures, communicating with other HCPs (not separately reported) and care coordination (not separately reported) Joe Granda MD documented in this encounterSheltering Arms Hospital07-22-2022 History of Present illness Narrative* Alex Monsivais, RD - 01/17/2022 9:12 AM EDT AMBULATORY [...] and 4 hours apart from additional calcium www.DynasilareSimplebooklet.SocialVest - Bariatric Choice: 4 Complete Multivitamins (chewables) [...] Slim Fast Advanced Nutrition OR Light Start [place] Breakfast Essentials mixed with 1% or skim [...] intake at meals and snacks Please call [phone], option 5. Leave a message for the navigation team when you are finishedwith all clearances (nutrition, psychology, medical, surgeon) 1.Starting ~3 weeks after surgery take: daily multivitamin Vit D3 3,000 international unit(s) Vit B12 500 mcg Vit B1 20-100 mg Iron 45 mg Calcium CITRATE 5349-0666 mg/day OR It is okay to use combination vitamin/minerals to reduce pill volume. (Examples [employer] Bariatric Multivitamin- 45 (1) chewable/day AND 5050-7170 mg calcium citrate OR Bariatric Fusion chewable complete bariatric vitamin (2) chews, twice daily. IF DS: - Bariatric Fusion ADEK Complete Capsule (3x per day) AND 6998-2380 mg calcium citrate OR - Bariatric Advantage High ADEK Chewable Multivitamin (2x per day) AND 6756-2026 mg calcium citrate OR -Celebrate multi-ADEK chewable (3x per day) AND 5265-5919 mg calcium citrate AND 1 chewable Iron [...] Advanced Nutrition OR 5.5 packets Light Start [place] Breakfast Essentials mixed with 1% or skim [...] by: Alex Monsivais RD documented in this encounterSheltering Arms Hospital07-22-2022 Instructions* Patient Instructions* Alex Monsivais RD - 01/17/2022 9:12 AM EDT Please call [phone], option 5. Leave a message for the navigation team when you are finishedwith all clearances (nutrition, psychology, medical, surgeon) 1.Starting ~3 weeks after surgery take: daily multivitamin Vit D3 3,000 international unit(s) Vit B12 500 mcg Vit B1 20-100 mg Iron 45 mg Calcium CITRATE 2629-2866 mg/day OR It is okay to use combination vitamin/minerals to reduce pill volume. (Examples [employer] Bariatric Multivitamin- 45 (1) chewable/day AND 6513-6499 mg calcium citrate OR Bariatric Fusion chewable complete bariatric vitamin (2) chews, twice daily. IF DS: - Bariatric Fusion ADEK Complete Capsule (3x per day) AND 6999-5333 mg calcium citrate OR - Bariatric Advantage High ADEK Chewable Multivitamin (2x per day) AND 6455-7614 mg calcium citrate OR -Celebrate multi-ADEK chewable (3x per day) AND 3045-4558 mg calcium citrate AND 1 chewable Iron [...] Advanced Nutrition OR 5.5 packets Light Start [place] Breakfast Essentials mixed with 1% or skim [...] up: 2 weeks pre-op documented in this encounterSheltering Arms Hospital06-22-2022 History and physical note * Joe [...] can be found in the attached. SIGNATURE: Jeo Granda MD PATIENT NAME: Susi Borjahip DATE: December 18, 2021 TIME: 12:10 PM * Melissa Olivas PA-C - 12/05/2021 1:10 PM EDT HISTORY AND PHYSICAL EXAMINATION SERVICE DATE: 12/05/2021 SERVICE TIME: 1:12 PM PRIMARY CARE PHYSICIAN: Geneva Estrada, SAW CLEANER, SAW CLEANER This is a virtual visit using alternative [...] Negative for: dysuria, frequent urination and hematuria. COMPANY LABORER: +amenorrhea with IUD Endocrine: Negative for: diabetes [...] medication comments found. ALLERGIES Allergen Reactions Adhes. Adfs-Ligd-Se* Rash Adhesive Tape-Silic* Rash Augmentin [Amoxicil* Diarrhea [...] or any previous visit (from the past 51018 hour(s)). Assessment TONEY on CPAP Assessment: not currently using CPAP Thrombocytosis (HCC) Assessment: s/p splenectomy in 2014, last labs available in CareEverywhere from 01/2021 showing platelets at 488, plan to discuss with Dr. Granda for review. Bipolar affective disorder (HCC) Assessment: stable on current rx per patient Gastroesophageal reflux disease Assessment: on PPI and sucralfate Morbid obesity with body mass index of 60.0-69.9 in adult ([facility]) Assessment: Body mass index is 66.09 kg/m . [place]an Activity Status Index: METS: Climb a flight of stairs or walk up a hill (5.50 METs) DASI Score: 5.5 Patient denies any chest pain or undue shortness of breath with the above physical activity. Clinical Frailty Scale: 3. Well, with treated comorbid disease [id number] Score: Age: <65 Sex: female [id number] Score: 1 ARISCAT Score: Age: <=50 ARISCAT [...] 1:10 PM PAGER/CONTACT #: documented in this encounterSheltering Arms Hospital06-09-2022 History of Present illness Narrative* Akosua Peraza RD - 12/05/2021 11:45 AM EDT No show for nutrition appointment on 12/05/21. Signed by: Akosua Peraza RD documented in this encounterSheltering Arms Hospital05-18-2022 Evaluation note* Encounter Date Diagnosis Assessment [...] sprain elsa e care material was printed [facility] Other 05-11-2022 History of Present illness Narrative* Joe Granda MD - 11/06/2021 9:40 AM EDT Assessment NEW BARIATRIC PATIENT PATIENT NAME: Susi Ortiz REASON FOR CONSULT: Morbid Obesity REQUESTING PHYSICIAN: Self DATE of SERVICE: 11/06/2021 TIME of SERVICE: 9:40 AM PCP: Geneva Estrada, SAW CLEANER, SAW CLEANER CC: Morbid Obesity HPI: Ms. Ortiz is [...] use: Never ALLERGIES: ALLERGIES Allergen Reactions Adhes. Czda-Qlbh-Qg* Rash Adhesive Tape-Silic* Rash Augmentin [Amoxicil* Diarrhea [...] which included preparing to see the patient, otan-vt-jydj patient care, completing clinical documentation, obtaining and/or reviewing separately obtained history, ordering medications, tests, or procedures and care coordination (not separately reported). Joe Granda MD documented in this encounterSheltering Arms Hospital05-09-2022 Instructions* Patient Instructions* Alex Monsivais, BRENDON - 11/04/2021 12:44 PM EDT 1. Research the post-op vitamin options (can change depending on what procedure is done) Some examples of vitamins/mineral companies: - Bariatric Fusion: 4 Complete Chewable Multivitamins per day (2 in the AM, 2 in the PM) www.bariatricfusion.com - Neurolixis, Inc.: 1 Bariatric Multivitamin and Calcium Citrate (total of 1200- 1500 mg/day) * take calcium citrate separately from Multivitamin with iron at least 2 hours apart and 4 hours apart from additional calcium www.procarenoPEER.SocialVest - Bariatric Choice: 4 Complete Multivitamins (chewables) [...] Slim Fast Advanced Nutrition OR Light Start [place] Breakfast Essentials mixed with 1% or skim milk OR Atkins Protein Shakes (15 gm protein version) OR Glucose Controlled Boost Pre-op goal weight: 380 pounds - per Dr. Granda Protein needs: 77 gm per day Nutrition Monitoring & Evaluation: 1-2 # weight loss per week prior to surgery Criteria: Weight check Need for Follow up: 1 month, [phone] documented in this encounterSheltering Arms Hospital05-09-2022 History of Present illness Narrative* Alex [...] Guide to Surgery by next session https://my.[email or web address]/-/scassets/files/org/bariatric/guides/[email or web address]?la=e n 2. Do not skip meals. [...] AM, 2 in the PM). www.bariatricfusion.com - Neurolixis, Inc.: 1 Bariatric Multivitamin and Calcium Citrate (total of 1200- 1500 mg/day) * take calcium citrate separately from Multivitamin with iron at least 2 hours apart and 4 hours apart from additional calcium www.Paddle8 - Bariatric Choice: 4 Complete Multivitamins (chewables) per day Www.bariatricchoice.com - Bariatric Advantage: 2 Multivitamins and 3 Calcium Citrate Chewables per day * take calcium citrate separately from Multivitamin with iron at least 2 hours apart and 4 hours apart from additional calcium. Www.bariatricadvantage.SocialVest For reflux: 1. Try to eat something every 2-3 hours and do not skip meals. Large meals may increase stomach pressure and make your reflux worse. 2. Avoid possible trigger foods as follows: Caffeine (regular coffee, regular tea) Carbonated beverages Mints (peppermint, spearmint) Fried, greasy foods Garlic and onions Izard fruits, juices Alcohol Tomato products Spicy foods [...] in the AM, 2 in the PM) www.bariatricfusion.SocialVest - [facility] [facility]: 1 Bariatric Multivitamin and Calcium Citrate (total of 1200- 1500 mg/day) * take calcium citrate separately from Multivitamin with iron at least 2 hours apart and 4 hours apart from additional calcium www.DynasilareSimplebooklet.SocialVest - Bariatric Choice: 4 Complete Multivitamins (chewables) per day Www.bariatricchoOutside.in.SocialVest - Bariatric Advantage: 2 Multivitamins and 3 Calcium Citrate Chewables per day * take calcium citrate separately from Multivitamin with iron at least 2 hours apart and 4 hours apart from additional calcium Www.bariatricadChampionVillage.SocialVest 2. Do not skip meals. 3. Use [...] Slim Fast Advanced Nutrition OR Light Start [place] Breakfast Essentials mixed with 1% or skim milk OR Atkins Protein Shakes (15 gm protein version) OR Glucose Controlled Boost Pre-op goal weight: 380 pounds - per Dr. Granda Protein needs: 77 gm per day Nutrition Monitoring & Evaluation: 1-2 # weight loss per week prior to surgery Criteria: Weight check Need for Follow up: 1 month, [phone] Group Appointment Start Time: 11:45 AM Group Appointment End Time: 12:29 PM Time Spent on Consult: 44 minutes - Group Signed by: Alex Monsivais RD documented in this encounterSheltering Arms Hospital05-02-2022 Evaluation note* Encounter Date Diagnosis Assessment Notes Treatment Notes Treatment Clinical Notes October, Gastroesophageal ref lux disease, esophagitis presence not specified (ICD-10 - K21.9) [facility] Other 04-15-2022 Evaluation note* Encounter Date Diagnosis Assessment Notes Treatment Notes Treatment Clinical Notes Sep, Other d/t progessi vely worsening shortness of breath and hypoxia, patient was recommended to go to ER for higher acuity care [facility] Other 04-07-2022 Evaluation note* Encounter Date Diagnosis [...] ramon lt home care material was printed [facility] Other 04-04-2022 History of Present illness Narrative* 09/30/2021 * 9:15AM * SUSI ORTIZ , 36 year is contacted for an (audio-visual, or audio only) Telehealth visit. * Today's visit was provided through telemedicine conferencing: Using FunnelFire platform. 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 She was taken for surgery at [facility] later that month, and reports that the [...] in 2018, which was also performed at [facility]. 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 We are sure that you will still have some additional questions and encourage you to reach out to your care provider via HomeStay OR your Patient Navigator. Patient Navigators are assigned alphabetically by patient last name. The contact information for each Navigator is listed below. Last names A-E= Malorie - Last names F-L = JoannaMike Last names [...] free to ask for a hard copy. [email or web address] Once you complete all of the requirements (testing, consultations, diet, etc) from each provider, please call [phone] and select option #5 to initiate insurance approval. Please note scheduling information It is important to keep track of your scheduled appointments to ensure successful completion of oursurgical program. Any missed appointments can further delay your pre-surgical work-up. [facility] does offer an opt-in option for getting text message appointment reminders. Please follow the link below if you would like to opt into this service. [email or web address] As part of your surgical work up, [...] follow up visit or rescheduling, Please call [phone] OR [phone] Any testing that is completed outside of [facility] will need faxed to [phone]. We look forward to working with you on this journey, Jayshree Huffman APRN.CNP documented [facility] History of Present illness Narrative* Jayshree [...] surgery due to severe GERD. Sleeve in 2017 at [facility], in [place]. 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 ALLERGIES Allergen Reactions Adhes. Kmab-Ovmi-Ax* Rash Adhesive Tape-Silic* Rash Augmentin [Amoxicil* Diarrhea [...] which included preparing to see the patient, muvx-ix-bmks patient care, completing clinical documentation, obtaining and/or reviewing separately obtained history, counseling and educating the patient/family/caregiver, ordering medications, keli ts, or procedures and communicating with other HCPs (not separately reported). Medical Decision Making Jayshree Huffman APRN.KATTY [facility] History and physical note * Humza [...] a sleeve gastrectomy done in 2017 at [facility]. Her preop weight was 380 lbs. Max [...] Minimally Invasive General Surgery documented in [facility] encounter[facility] Center[facility] complaint Narrative - Reported* An interactive audio and video telecommunication system which permits real time communications between the patient (at the originating site) and provider (at the distant site) was utilized to providethis telehealth service. * The patient is being seen today for a New Patient Visit regarding Cyst on Right Ovary. [facility] IV[facility] Work Phone: Evaluation note* Diagnosis S/P laparoscopic sleeve gastrectomy- Primary TONEY on CPAP Obstructive sleep apnea (adult) (pediatric) Morbid obesity with body mass index of 50 or higher Gastroesophageal reflux disease, unspecified whether esophagitis present Screening for viral disease Special screening examination for unspecified viral disease Other intestinal malabsorption [facility]* Diagnosis Gastroesophageal reflux disease, unspecified whether esophagitis present- Primary Class 3 severe obesity with serious comorbidity and body mass index (BMI) of 60.0 to 69.9 in adult, unspecified obesity type (HCC) TONEY on CPAP Obstructive sleep apnea (adult) (pediatric) S/P laparoscopic sleeve gastrectomy Bariatric surgery status Postoperative malabsorption Other and unspecified postsurgical nonabsorption documented in this encounter [facility] note* Diagnosis Dysphagia, unspecified type- Primary Gastroesophageal reflux disease, unspecified whether esophagitis present History of sleeve gastrectomy documented in this encounter [facility] note* Diagnosis History of sleeve gastrectomy- Primary BMI 70 and over, adult (HCC) Body Mass Index 70 and over, adult Dietary counseling and surveillance Dietary surveillance and counseling documented in this encounter [facility] note* Diagnosis History of sleeve gastrectomy- Primary Gastric fistula Fistula of stomach or duodenum documented in this encounter [facility] note* Diagnosis NO SHOW- Primary documented in this encounter [facility] note* Diagnosis TONEY on CPAP Obstructive sleep apnea (adult) (pediatric) Gastroesophageal reflux disease, unspecified whether esophagitis present S/P laparoscopic sleeve gastrectomy Bariatric surgery status documented in this encounter [facility] noteNo InformationNomineral [facility] [employer] Other Evaluation note* Diagnosis Gastroesophageal reflux disease, unspecified whether esophagitis present- Primary BMI 70 and over, adult (HCC) Body Mass Index 70 and over, adult History of sleeve gastrectomy Dietary counseling and surveillance Dietary surveillance and counseling documented in this encounter [facility] note* Diagnosis Epigastric pain- Primary Abdominal pain, epigastric Gastroesophageal reflux disease without esophagitis Esophageal reflux History of sleeve gastrectomy documented in this encounter [facility] note* Diagnosis History of sleeve gastrectomy Gastric fistula Fistula of stomach or duodenum documented in this encounter [facility] note* Diagnosis NO SHOW- Primary documented in this encounter [facility] note* Diagnosis History of sleeve gastrectomy- Primary documented in this encounter [facility] noteNo assessment information [facility] Work Phone: evalufumtf note* Diagnosis Gastroesophageal reflux disease, unspecified whether esophagitis present- Primary BMI 70 and over, adult (HCC) Body Mass Index 70 and over, adult documented in this encounter [facility] note* Diagnosis Morbid obesity with body mass index of 60.0-69.9 in adult (HCC)- Primary Morbid obesity Gastroesophageal reflux disease, unspecified whether esophagitis present BMI 70 and over, adult ([facility]) Body Mass Index 70 and over, adult Gastroesophageal reflux disease, unspecified whether esophagitis present documented in this encounter [facility] note* Diagnosis Morbid obesity with body mass index of 60.0-69.9 in adult ([facility])- Primary Morbid obesity documented in this encounter [facility] note* Diagnosis Weight disorder- Primary Other symptoms concerning nutrition, metabolism, and development BMI 70 and over, adult ([facility]) Body Mass Index 70 and over, adult Preop testing Preoperative examination, unspecified Abnormal weight gain Snoring Other dyspnea and respiratory abnormality Sleep-disordered breathing Other sleep disturbances Fatigue, unspecified type S/P bariatric surgery Bariatric surgery status documented in this encounter [facility] note* Diagnosis Morbid obesity with BMI of 70 and over, adult ([facility])- Primary Morbid obesity documented in this encounter [facility] note* Diagnosis S/P gastric sleeve procedure- Primary Weight gain following gastric bypass surgery BMI 60.0-69.9, adult ([facility]) Body Mass Index 60.0-69.9, adult Dietary counseling and surveillance Dietary surveillance and counseling documented in this encounter [facility] note* Diagnosis Weight gain following gastric bypass surgery- Primary Abnormal weight gain Preop testing Preoperative examination, unspecified Snoring Other dyspnea and respiratory abnormality Sleep-disordered breathing Other sleep disturbances Fatigue, unspecified type S/P bariatric surgery Bariatric surgery status S/P gastric sleeve procedure Dietary counseling and surveillance Dietary surveillance and counseling BMI 60.0-69.9, adult ([facility]) Body Mass Index 60.0-69.9, adult documented in this encounter [facility] note* Diagnosis Pre-op evaluation- Primary Preoperative examination, unspecified Morbid obesity with body mass index of 60.0-69.9 in adult ([facility]) Morbid obesity Gastroesophageal reflux disease, unspecified whether esophagitis present TONEY on CPAP Obstructive sleep apnea (adult) (pediatric) Bipolar affective disorder, remission status unspecified ([facility]) Thrombocytosis Essential thrombocythemia Migraine without status migrainosus, not intractable, unspecified migraine type documented in this encounter [facility] note* Diagnosis Patient left without being seen- Primary Surgical or other procedure not carried out because of patient's decision documented in this encounter [facility] note* Diagnosis S/P gastrointestinal surgery, follow-up exam- Primary Follow-up examination, following other surgery Status post biliopancreatic diversion with duodenal switch Post-operative nausea and vomiting Nausea with vomiting [facility]* Diagnosis Impaired intestinal absorption- Primary Unspecified intestinal malabsorption S/P biliopancreatic diversion with duodenal switch Class 3 severe obesity with body mass index (BMI) of 60.0 to 69.9 in adult, unspecified obesity type, unspecified whether serious comorbidity present (HCC) Dietary counseling and surveillance Dietary surveillance and counseling documented in this encounter [facility] note* Diagnosis S/P bariatric surgery- Primary Bariatric surgery status Body mass index (BMI) 60.0-69.9, adult ([facility]) Dietary counseling and surveillance Dietary surveillance and counseling documented in this encounter [facility] note* Diagnosis S/P gastrointestinal surgery, follow-up exam- Primary Follow-up examination, following other surgery S/P biliopancreatic diversion with duodenal switch Open abdominal incision with drainage, subsequent encounter Impaired intestinal absorption Unspecified intestinal malabsorption Class 3 severe obesity with body mass index (BMI) of 60.0 to 69.9 in adult, unspecified obesity type, unspecified whether serious comorbidity present (HCC) documented in this encounter [facility] note* Diagnosis S/P bariatric surgery- Primary Bariatric surgery status Impaired intestinal absorption Unspecified intestinal malabsorption Body mass index (BMI) 60.0-69.9, adult ([facility]) Dietary counseling and surveillance Dietary surveillance and counseling documented in this encounter [facility] note* Diagnosis Encounter for surgical aftercare [...] Bariatric surgery status [facility]* Diagnosis BMI 60.0-69.9, adult (HCC)- Primary Body Mass Index 60.0-69.9, adult S/P bariatric surgery Bariatric surgery status documented in this encounter [facility] general Narrative - Reported* Type Description Date Medical History GERD Medical History depression Medical History bi-polar Medical History herniated disc Medical History pituitary microadenoma 3 mm Medical History migraines Medical History Fibromyalgia Surgical History cholecystectomy 2007 Surgical History Procedure:Carpal Tunnel 2009, 2 010 Surgical History bilat carpal tunnel Surgical History Procedure:Gall Bladder 2008 Surgical History diskectomy x's 2 Surgical History Procedure:Back surgery 13 Surgical History spleenectomy 11/06/2014 Surgical History splenectomy 11/06/2014 Surgical History tonsillectomy Surgical History tonsillectomy 10/08/2015 Surgical History gastric sleeve Surgical History Gastric Sleeve 05/2017 Surgical History cyst removed from right ovary. Hospitalization History CHILD X'S 2 Hospitalization History SEE ABOVE SURGERY [facility] Other History general Narrative - Reported* Type [...] X'S 2 Hospitalization History SEE ABOVE SURGERY [facility] Other Reason for referral (narrative)* Diagnostic Procedure [...] TRC SINGLE CONTRAST STUDY Jayshree Huffman APRN.CNP [address] [place] [address] Xr Imaging Referral ID Status Reason Start Date Expiration Date Visits Requested Visits Authorized [id number] Pending Review Auto-Generat ed Referral 09/23/2021 10/23/2022 1 1 * Outpatient Procedure (Routine) - Pending Review Specialty Diagnoses / Procedures Referred By Tiarra somers Referred To Contact [facility] Diagnoses TONEY on CPAP Gastroesophageal reflux disease, unspecified whether esophagitis present Class 3 severe obesity with serious comorbidity and body mass index (BMI) of 60.0 to 69.9 in adult, unspecified obesity type (HCC) Postoperative malabsorption Procedures ECG COMPLETE ECG ROUTINE ECG W/LEAST 12 LDS W/I&R Jayshree Huffman APRN.CNP [address] [place] [address] [facility] [address] [id number] Referral ID Status Reason Start Date Expiration Date Visits Requested Visits Authorized [id number] Pending Review Auto-Generat ed Referral 09/23/2021 09/23/2022 1 1 [facility] for referral (narrative)* Outpatient Procedure (Routine) - Closed Specialty Diagnoses / Procedures Referred By Tiarra somers Referred To Contact [facility] Diagnoses TONEY on CPAP Gastroesophageal reflux disease, unspecified whether esophagitis present S/P laparoscopic sleeve gastrectomy Procedures EGD DIAGNOSTIC ESOPHAGOGASTRODUODENOSCO PY TRANSORAL DIAGNOSTIC Jayshree Huffman APRN.CNP [address] [place] [address] [address] Referral ID Status Reason Start Date Expiration Date V isits Requested Visits Authorized [id number] Closed Auto-Generate d Referral 09/24/2021 09/24/2022 1 1 [facility] for referral (narrative)* Outpatient Procedure (Routine) - Pending Review Specialty Diagnoses / Procedures [facility] Referred To Contact [facility] Diagnoses Abnormal weight gain Preop testing Snoring Sleep-disordered breathing Fatigue, unspecified type S/P bariatric surgery BMI 70 and over, adult (HCC) Procedures ECG COMPLETE ECG ROUTINE ECG W/LEAST 12 LDS W/I&R Amina Nieto MD [address] [place] [address] [facility] [place] [address] [place] [address] Referral ID Status Reason Start Date Expiration Date Visits Requested Visits Authorized [id number] Pending Review Auto-Generat ed Referral 06/04/2022 05/31/2023 1 1 * Consult, Test, Treat (Routine) - Authorized Specialty Diagnoses / Procedures Referred By Tiarra somers Referred To Contact Diagnoses Abnormal weight gain Preop testing Snoring Sleep-disordered breathing Fatigue, unspecified type S/P bariatric surgery BMI 70 and over, adult ([facility]) Procedures CONSULT TO SLEEP MEDICINE - ADULT OFFICE/OUTPATIENT [facility] 60-74 MINUTES Amina Nieto MD [address] [place] [address] Referral ID Status Reason Start Date Expiration Date Visits Requested Visits Authorized [id number] Authorized PCP Requested Referral 06/04/2022 05/31/2023 1 1 [facility] for referral (narrative)* Outpatient Procedure (Routine) - Pending Review Specialty Diagnoses / Procedures Referred By Tiarra somers Referred [facility] Diagnoses Pre-op evaluation Morbid obesity with body mass index of 60.0-69.9 in adult ([facility]) Gastroesophageal reflux disease, unspecified whether esophagitis present TONEY on CPAP Bipolar affective disorder, remission status unspecified ([facility]) Thrombocytosis Migraine without status migrainosus, not intractable, unspecified migraine type Procedures ECG COMPLETE ECG ROUTINE ECG W/LEAST 12 LDS W/I&R Shruti Alvarado APRN.SAW CLEANER [address] [place] [address] [facility] [place] [facility] [place] [address] Referral ID Status Reason Start Date Expiration Date Visits Requested Visits Authorized [id number] Pending Review Auto-Generat ed Referral 03/10/2023 03/09/2024 1 1 [facility] for visit Narrative* Outpatient Procedure (Routine) - Closed Specialty Diagnoses / Procedures Referred By Tiarra somers Referred To Contact [facility] Diagnoses TONEY on CPAP Gastroesophageal reflux disease, unspecified whether esophagitis present S/P laparoscopic sleeve gastrectomy Procedures EGD DIAGNOSTIC ESOPHAGOGASTRODUODENOSCO PY TRANSORAL DIAGNOSTIC NathanaelJayshree, POLICY CHANGE CLERK.SAW CLEANER [address] [place] [address] [facility] [place] [address] [place] [address] Referral ID Status Reason Start Date Expiration Date V isits Requested Visits Authorized [id number] Closed Auto-Generate d Referral 09/24/2021 09/24/2022 1 1 [facility] Summary Purpose Family History No Family [...] FoundDocuments on File Type Date Recorded Patient Superintendent Compressor Stations Expl anation ACP-Advance Directive ACP-Power of Wire Preparation Machine Tender Latest Code Status on File Code Status Date Activated Date Inactivated Comments Full Code 01/16/2017 11:20 PM 01/21/2017 5:23 PM Documents on File Type Date Recorded 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 Superintendent Compressor Stations Expl anation ACP-Advance Directive ACP-Power of Wire Preparation Machine Tender Latest Code Status on File Code Status Date Activated Date Inactivated Comments Full Code 01/16/2017 11:20 PM 01/21/2017 5:23 PM Documents on File Type Date Recorded Patient Superintendent Compressor Stations Expl anation Advance Directive(s) 10/04/2015 12:43 PM Advance Directive(s) 09/25/2015 12:29 PM Documents on File Type Date Recorded Patient Superintendent Compressor Stations Expl anation Advance Directive(s) 10/04/2015 12:43 PM Advance Directive(s) 09/25/2015 12:29 PM Advance Directive Response Recorded Date/ Time Advance Directives No October 07, 2 019 3:58pm Reason for Referral Status Reason Specialty Diagnoses / Procedures Referre d By Contact Referred To Contact [facility] Diagnoses S/P laparoscopic sleeve gastrectomy Procedures FL UGI FL UGI Shaylee Miles, [address] [place] [address] Specialty Diagnoses / Procedures Referred By Contac t Referred To Contact Diagnoses S/P laparoscopic sleeve gastrectomy Gastroesophageal reflux disease, unspecified whether esophagitis present Procedures XR FLUORO UPPER GI, WATER SOLUBLE AND/OR BARIUM CONTRAST Humza Walter MD [address] [place] [id number] Referral ID Status Reason Start Date Expiration Date V isits Requested Visits Authorized [id number] Auth Not Needed 05/17/2021 06/11/2022 1 1 Specialty Diagnoses / Procedures Referred By Contac t Referred To Contact Diagnoses S/P laparoscopic sleeve gastrectomy TONEY on CPAP Morbid obesity with body mass index of 50 or higher Gastroesophageal reflux disease, unspecified whether esophagitis present Other intestinal malabsorption Procedures ECG Humza Walter MD [address] [place] [id number] Referral ID Status Reason Start Date Expiration Date V isits Requested Visits Authorized [id number] New Request 05/17/2021 06/11/2022 1 1 Specialty Diagnoses / Procedures Referred By Contac t Referred To Contact Psychology Diagnoses S/P laparoscopic sleeve gastrectomy TONEY on CPAP Morbid obesity with body mass index of 50 or higher Gastroesophageal reflux disease, unspecified whether esophagitis present Other intestinal malabsorption Humza Walter MD [address] [place] [address] Referral ID Status Reason Start Date Expiration Date V isits Requested Visits Authorized [id number] New Request 05/17/2021 06/11/2022 1 1 Specialty Diagnoses / Procedures Referred By Contac t Referred To Contact Nutrition and Dietetics Diagnoses S/P laparoscopic sleeve gastrectomy TONEY on CPAP Morbid obesity with body mass index of 50 or higher Gastroesophageal reflux disease, unspecified whether esophagitis present Other intestinal malabsorption Humza Walter MD [address] [place] [address] Referral ID Status Reason Start Date Expiration Date V isits Requested Visits Authorized [id number] New Request 05/17/2021 06/11/2022 1 1 Specialty Diagnoses / Procedures Referred By Tiarra t Referred To Contact CT IMAGING Diagnoses History of sleeve gastrectomy Gastric fistula Procedures CT ABD/PEL W IVCON CT ABD & PEL[place] W/[place] [address] [place] [address] Ct Imaging Referral ID Status Reason Start Date Expiration Date Visits Requested Visits Authorized [id number] Pending Review Auto-Generat ed Referral 11/04/2021 12/04/2022 1 1 Specialty Diagnoses / Procedures [facility]erred By [facility] Referred To Contact XR IMAGING Diagnoses History of sleeve gastrectomy Gastric fistula Procedures XR UPPER GI SINGLE CONTRAST RADIOLOGIC EXAM UPR GI [place] [address] [place] [address] Xr Imaging Referral ID Status Reason Start Date Expiration Date Visits Requested Visits Authorized [id number] Pending Review Auto-Generat ed Referral 11/04/2021 12/04/2022 1 1 Referral ID Status Reason Start Date Expiration Date V isits Requested Visits Authorized [id number] Closed Auto-Generate d Referral 01/05/2022 06/28/2022 2 2 Specialty Diagnoses / Procedures Referred By [facility] Referred To Contact Diagnoses BMI 70 and over, adult (HCC) Gastroesophageal reflux disease, unspecified whether esophagitis present Procedures IN PERSON CONSULT TO PACC Jayshree Huffman APRN.SAW CLEANER [address] [place] [address] Referral ID Status Reason Start Date Expiration Date Visits Requested Visits Authorized [id number] Ref Not Required PCP Requested Referral 2 [...] questions, PLEASE call your doctor or the [facility] at documented in this [...] section and content) DATE CREATED AUTHOR 12/23/2017 [facility] DATE CREATED AUTHOR AUTHOR'S ORGANIZ ATION 03/29/2020 [facility] DATE CREATED AUTHOR AUTHOR'S ORGANIZ ATION 04/07/2020 [facility] DATE CREATED AUTHOR AUTHOR'S ORGANIZ ATION 04/11/2020 [facility] DATE CREATED AUTHOR AUTHOR'S ORGANIZ ATION 10/01/2021 [facility] DATE CREATED AUTHOR AUTHOR'S ORGANIZ ATION 12/11/[address] [facility] DATE CREATED AUTHOR AUTHOR'S ORGANIZ ATION 02/19/2022 [facility] DATE CREATED AUTHOR AUTHOR'S ORGANIZ ATION 11/07/[address] [facility] DATE CREATED AUTHOR AUTHOR'S ORGANIZ ATION 12/15/2022 [facility] DATE CREATED AUTHOR AUTHOR'S ORGANIZ ATION 08/18/2023 [facility] DATE CREATED AUTHOR AUTHOR'S ORGANIZ ATION 12/05/2023 [facility] DATE CREATED AUTHOR AUTHOR'S ORGANIZ ATION 12/13/2023 [facility] DATE CREATED AUTHOR AUTHOR'S ORGANIZ ATION 03/08/2024 [facility] EPIC Reason for Visit (unrecogniz ed section and content) Status Reason Specialty Diagnoses / Procedures Re ferred By Contact Referred To Contact Diagnoses Obesity OBESITY Procedures MO ESOPHAGOGASTRODUODENOSCOPY TRANSORAL DIAGNOSTIC EGD ESOPHAGOGASTRODUODENOSCOPY Kylah Vargas, [address] [facility] [address] [place] [address] [facility] Reason Comments Consult Est Care/Revision/ S leeve 05/2017 Reason Comments Obesity GERD Reason Onset Date Comments Reassessment 11/04/2021 Patient Education 11/04/2021 Reason Comments New Patient Reason Comments No Show Reason Onset Date Comments Reassessment 01/17/2022 Patient Education 01/17/2022 Specialty Diagnoses / Procedures Referred By Contac t Referred To Contact Nutrition / GENERAL SURGERY Diagnoses Follow-up exam [place]/0 diet/[place]/05/2017 LSG-complications gerd Procedures PHYS/QHP TELEPHONE EVALUATION 5-10 MIN VIDEO GROUP (ZOOM) [facility] Yodit Erin, RD [address] [place] [address] Referral ID Status Reason Start Date Expiration Date Visits Re quested Visits Authorized [id number] Closed 01/17/2022 06/28/2022 1 1 Reason Comments Obesity Specialty Diagnoses / Procedures Referred By Contac t Referred To Contact General Surgery / GENERAL SURGERY Diagnoses Follow-up exam imaging follow up Procedures PHYS/QHP TELEPHONE EVALUATION 5-10 [place] [address] [place] [address] [place] [address] [place] [address] Referral ID Status Reason Start Date Expiration Date Visits Re quested Visits Authorized [id number] Closed 01/20/2022 06/28/2022 1 1 Specialty Diagnoses / Procedures Referred By Contac t Referred To Contact CT IMAGING Diagnoses History of sleeve gastrectomy Gastric fistula Procedures CT ABD/PEL W IVCON CT ABD & PELVIS W/[place] [address] [place] [address] Ct Imaging Referral ID Status Reason Start Date Expiration Date V isits Requested Visits Authorized [id number] Closed Auto-Generate d Referral 01/05/2022 06/28/2022 2 [...] CONSULT TO SLEEP MEDICINE - ADULT OFFICE/OUTPATIENT [facility] 60-74 MINUTES Amina Nieto MD [address] [place] [address] Referral ID Status Reason Start Date Expiration Date V isits Requested Visits Authorized [id number] Closed PCP Requested Referral 06/04/2022 05/31/2023 1 1 Reason Comments Anesthesia Consult Specialty Diagnoses / Procedures Referred By Tiarra t Referred To Contact ANESTHESIOLOGY Diagnoses Preop examination Procedures PREOP ANES OR PROXY B/4 SURG Joe Granda MD [address] [facility] [place] [address] Pre [address] [place] [address] Referral ID Status Reason Start Date Expiration Date V isits Requested Visits Authorized [id number] Authorized 06/29/2022 06/28/2023 99 99 Reason Comments Patient Left Without Being Seen Specialty Diagnoses / Procedures Referred By Contraymond t Referred To Contact ANESTHESIOLOGY Diagnoses Preop examination Procedures PREOP ANES OR PROXY B/4 SURG Joe Granda MD [address] [place] [address] Pre Anes Main [address] [place] [address] Reason Comments Post Op Reason Comments Post Op 7-10 day gastrectomy Reason Comments Post Op S/p BPD/DS 08/04/23 Reason Comments Follow Up Weight Loss Surgery Reason Comments Refill Request Care Teams (unrecognized sec tion and content) Patient Accounts Coordinator Relationship Specialty Start Date End Date SherryElizabet brookeDO [address] [place] [address] PCP - General Family Medicine 03/21/21 Patient Accounts Coordinator Relationship Specialty Start Date End Date Geneva Estrada, SAW CLE[employer]ER [address] [place] [address] PCP - General Family Practice 10/01/11 Patient Accounts Coordinator Relationship Specialty Start Date End Date Geneva Estrada, SAW CLE[employer] [address] [place] [address] PCP - General Family Practice 10/01/11 Patient Accounts Coordinator Relationship Specialty Start Date End Date LucasGeneva mauro, SAW CLE[employer]ER [address] [place] [address] PCP - General Family Practice 10/01/11 Patient Accounts Coordinator Relationship Specialty Start Date End Date Geneva Estrada, SAW CLE[employer] [address] [place] [address] PCP - General Family Practice 10/01/11 Patient Accounts Coordinator Relationship Specialty Start Date End Date Geneva Estrada, SAW CLE[employer]ER [address] [place] [address] PCP - General Family Practice 10/01/11 Patient Accounts Coordinator Relationship Specialty Start Date End Date Geneva Estrada, SAW CLE[employer]ER [address] [place] [address] PCP - General Family Practice 10/01/11 Patient Accounts Coordinator Relationship Specialty Start Date End Date Geneva Estrada, SAW CLE[employer]ER [address] [place] [address] PCP - General Family Practice 10/01/11 Patient Accounts Coordinator Relationship Specialty Start Date End Date Geneva Estrada, SAW CLE[employer]ER [address] [place] [address] PCP - General Family Practice 10/01/11 Patient Accounts Coordinator Relationship Specialty Start Date End Date Geneva Estrada, SAW CLE[employer]ER [address] [place] [address] PCP - General Family Practice 10/01/11 Patient Accounts Coordinator Relationship Specialty Start Date End Date LucasGeneva mauro, SAW CLEANER [address] [place] [address] PCP - General Family Practice 10/01/11 Patient Accounts Coordinator Relationship Specialty Start Date End Date LucasshermanGeneva mauro, SAW CLEANER [address] [place] [address] PCP - General Family Practice 10/01/11 Patient Accounts Coordinator Relationship Specialty Start Date End Date LucasGeneva mauro, SAW CLEANER [address] [place] [address] PCP - General Family Medicine 10/01/11 Team Status: Inactive Member Role Status Dates NON STAFF Primary Care Provider Active ROBERT Monteiro Attending Provider Active Team Status: Active Member Role Status Dates NON STAFF Primary Care Provider Active Patient Accounts Coordinator Relationship Specialty Start Date End Date Elizabet Simental [address] [place] [address] PCP - General Family Medicine 04/16/22 Patient Accounts Coordinator Relationship Specialty Start Date End Date Rumschlag, Elizabet [address] [place] [address] PCP - General Family Medicine 04/16/22 Patient Accounts Coordinator Relationship Specialty Start Date End Date Rumschlag, Elizabet [address] [place] [address] PCP - General Family Medicine 04/16/22 Patient Accounts Coordinator Relationship Specialty Start Date End Date Rumschlag, Elizabet [address] [place] [address] PCP - General Family Medicine 04/16/22 Patient Accounts Coordinator Relationship Specialty Start Date End Date Rumschlaroro, Elizabet [address] [place] [address] PCP - General Family Medicine 04/16/22 Patient Accounts Coordinator Relationship Specialty Start Date End Date Rumschlaroro, Elizabet [address] [place] [address] PCP - General Family Medicine 04/16/22 Patient Accounts Coordinator Relationship Specialty Start Date End Date Rumschmendy, Elizabet [address] [place] [address] PCP - General Family Medicine 04/16/22 Patient Accounts Coordinator Relationship Specialty Start Date End Date Rumschlag, Elizabet [address] [place] [address] PCP - General Family Medicine 04/16/22 Patient Accounts Coordinator Relationship Specialty Start Date End Date Rumschlaroro Elizabet [address] [place] [address] PCP - General Family Medicine 04/16/22 Patient Accounts Coordinator Relationship Specialty Start Date End Date Rumschmendy Elizabet [address] [place] [address] PCP - General Family Medicine 04/16/22 Patient Accounts Coordinator Relationship Specialty Start Date End Date Rumschlag, Elizabet [address] [place] [address] PCP - General Family Medicine 04/16/22 Patient Accounts Coordinator Relationship Specialty Start Date End Date Rumschlag, Elizabet [address] [place] [address] PCP - General Family Medicine 04/16/22 Patient Accounts Coordinator Relationship Specialty Start Date End Date Rumschlag, Elizabet [address] [place] [address] PCP - General Family Medicine 04/16/22 Patient Accounts Coordinator Relationship Specialty Start Date End Date Rumschlag, Elizabet, DO [address] [place] [address] PCP - General Family Medicine 04/16/22 Patient Accounts Coordinator Relationship Specialty Start Date End Date Rumschlag, Elizabet, DO [address] [place] [address] PCP - General Family Medicine 04/16/22 Patient Accounts Coordinator Relationship Specialty Start Date End Date Rumschlag, Elizabet, DO [address] [place] [address] PCP - General Family Medicine 04/16/22 Patient Accounts Coordinator Relationship Specialty Start Date End Date Rumschlag, Elizabet, DO [address] [place] [address] PCP - General Family Medicine 04/16/22 Patient Accounts Coordinator Relationship Specialty Start Date End Date Rumschlag, Elizabet, DO [address] [place] [address] PCP - General Family Medicine 04/16/22 Patient Accounts Coordinator Relationship Specialty Start Date End Date Rumschlag, Elizabet, DO [address] [place] [address] PCP - General Family Medicine 04/16/22 Patient Accounts Coordinator Relationship Specialty Start Date End Date Rumschlag, Elizabet, DO [address] [place] [address] PCP - General Family Medicine 04/16/22 Patient Accounts Coordinator Relationship Specialty Start Date End Date Rumschlag, Elizabet, DO [address] [place] [address] PCP - General Family Medicine 04/16/22 Patient Accounts Coordinator Relationship Specialty Start Date End Date Rumschlag, Elizabet, DO [address] [place] [address] PCP - General Family Medicine 04/16/22 Patient Accounts Coordinator Relationship Specialty Start Date End Date Rumschlag, Elizabet, DO [address] [place] [address] PCP - General Family Medicine 04/16/22 Source Comments (unrecognize d section and content) In the event this informatio n is protected by the Federal Confidentiality of Alcohol and Drug Abuse Patient Records regulations: The Federal rules restrict any use of the information to criminally investigate or prosecute any alcohol or drug abuse patient.[facility] the event this information is protected by the Federal Confidentiality of Alcohol and Drug Abuse Patient Records regulations: The Federal rules restrict any use of the information to criminally investigate or prosecute any alcohol or drug abuse patient.[facility] HospitalIn the event this information is protected by the Federal Confidentiality of Alcohol and Drug Abuse Patient Records regulations: The Federal rules restrict any use of the information to criminally investigate or prosecute any alcohol or drug abuse patient.[facility] HospitalIn the event this information is protected by the Federal Confidentiality of Alcohol and Drug Abuse Patient Records regulations: The Federal rules restrict any use of the information to criminally investigate or prosecute any alcohol or drug abuse patient.[facility] HospitalIn the event this information is protected by the Federal Confidentiality of Alcohol and Drug Abuse Patient Records regulations: The Federal rules restrict any use of the information to criminally investigate or prosecute any alcohol or drug abuse patient.[facility] HospitalIn the event this information is protected by the Federal Confidentiality of Alcohol and Drug Abuse Patient Records regulations: The Federal rules restrict any use of the information to criminally investigate or prosecute any alcohol or drug abuse patient.[facility] HospitalIn the event this information is protected by the Federal Confidentiality of Alcohol and Drug Abuse Patient Records regulations: The Federal rules restrict any use of the information to criminally investigate or prosecute any alcohol or drug abuse patient.[facility] HospitalIn the event this information is protected by the Federal Confidentiality of Alcohol and Drug Abuse Patient Records regulations: The Federal rules restrict any use of the information to criminally investigate or prosecute any alcohol or drug abuse patient.[facility] HospitalIn the event this information is protected by the Federal Confidentiality of Alcohol and Drug Abuse Patient Records regulations: The Federal rules restrict any use of the information to criminally investigate or prosecute any alcohol or drug abuse patient.[facility] HospitalIn the event this information is protected by the Federal Confidentiality of Alcohol and Drug Abuse Patient Records regulations: The Federal rules restrict any use of the information to criminally investigate or prosecute any alcohol or drug abuse patient.[facility] HospitalIn the event this information is protected by the Federal Confidentiality of Alcohol and Drug Abuse Patient Records regulations: The Federal rules restrict any use of the information to criminally investigate or prosecute any alcohol or drug abuse patient.[facility] HospitalIn the event this information is protected by the Federal Confidentiality of Alcohol and Drug Abuse Patient Records regulations: The Federal rules restrict any use of the information to criminally investigate or prosecute any alcohol or drug abuse patient.[facility] HospitalIn the event this information is protected by the Federal Confidentiality of Alcohol and Drug Abuse Patient Records regulations: The Federal rules restrict any use of the information to criminally investigate or prosecute any alcohol or drug abuse patient.[facility] HospitalIn the event this information is protected by the Federal Confidentiality of Alcohol and Drug Abuse Patient Records regulations: The Federal rules restrict any use of the information to criminally investigate or prosecute any alcohol or drug abuse patient.[facility] HospitalIn the event this information is protected by the Federal Confidentiality of Alcohol and Drug Abuse Patient Records regulations: The Federal rules restrict any use of the information to criminally investigate or prosecute any alcohol or drug abuse patient.[facility] HospitalIn the event this information is protected by the Federal Confidentiality of Alcohol and Drug Abuse Patient Records regulations: The Federal rules restrict any use of the information to criminally investigate or prosecute any alcohol or drug abuse patient.[facility] HospitalIn the event this information is protected by the Federal Confidentiality of Alcohol and Drug Abuse Patient Records regulations: The Federal rules restrict any use of the information to criminally investigate or prosecute any alcohol or drug abuse patient.[facility] HospitalIn the event this information is protected by the Federal Confidentiality of Alcohol and Drug Abuse Patient Records regulations: The Federal rules restrict any use of the information to criminally investigate or prosecute any alcohol or drug abuse patient.[facility] HospitalIn the event this information is protected by the Federal Confidentiality of Alcohol and Drug Abuse Patient Records regulations: The Federal rules restrict any use of the information to criminally investigate or prosecute any alcohol or drug abuse patient.[facility] HospitalIn the event this information is protected by the Federal Confidentiality of Alcohol and Drug Abuse Patient Records regulations: The Federal rules restrict any use of the information to criminally investigate or prosecute any alcohol or drug abuse patient.[facility] HospitalIn the event this information is protected by the Federal Confidentiality of Alcohol and Drug Abuse Patient Records regulations: The Federal rules restrict any use of the information to criminally investigate or prosecute any alcohol or drug abuse patient.[facility] HospitalIn the event this information is protected by the Federal Confidentiality of Alcohol and Drug Abuse Patient Records regulations: The Federal rules restrict any use of the information to criminally investigate or prosecute any alcohol or drug abuse patient.[facility] HospitalIn the event this information is protected by the Federal Confidentiality of Alcohol and Drug Abuse Patient Records regulations: The Federal rules restrict any use of the information to criminally investigate or prosecute any alcohol or drug abuse patient.[facility] HospitalIn the event this information is protected by the Federal Confidentiality of Alcohol and Drug Abuse Patient Records regulations: The Federal rules restrict any use of the information to criminally investigate or prosecute any alcohol or drug abuse patient.[facility] HospitalIn the event this information is protected by the Federal Confidentiality of Alcohol and Drug Abuse Patient Records regulations: The Federal rules restrict any use of the information to criminally investigate or prosecute any alcohol or drug abuse patient.[facility] HospitalIn the event this information is protected by the Federal Confidentiality of Alcohol and Drug Abuse Patient Records regulations: The Federal rules restrict any use of the information to criminally investigate or prosecute any alcohol or drug abuse patient.[facility] HospitalIn the event this information is protected by the Federal Confidentiality of Alcohol and Drug Abuse Patient Records regulations: The Federal rules restrict any use of the information to criminally investigate or prosecute any alcohol or drug abuse patient.[facility] HospitalIn the event this information is protected by the Federal Confidentiality of Alcohol and Drug Abuse Patient Records regulations: The Federal rules restrict any use of the information to criminally investigate or prosecute any alcohol or drug abuse patient.[facility] HospitalIn the event this information is protected by the Federal Confidentiality of Alcohol and Drug Abuse Patient Records regulations: The Federal rules restrict any use of the information to criminally investigate or prosecute any alcohol or drug abuse patient.[facility] HospitalIn the event this information is protected by the Federal Confidentiality of Alcohol and Drug Abuse Patient Records regulations: The Federal rules restrict any use of the information to criminally investigate or prosecute any alcohol or drug abuse patient.[facility] HospitalIn the event this information is protected by the Federal Confidentiality of Alcohol and Drug Abuse Patient Records regulations: The Federal rules restrict any use of the information to criminally investigate or prosecute any alcohol or drug abuse patient.[facility] HospitalIn the event this information is protected by the Federal Confidentiality of Alcohol and Drug Abuse Patient Records regulations: The Federal rules restrict any use of the information to criminally investigate or prosecute any alcohol or drug abuse patient.[facility] HospitalIn the event this information is protected by the Federal Confidentiality of Alcohol and Drug Abuse Patient Records regulations: The Federal rules restrict any use of the information to criminally investigate or prosecute any alcohol or drug abuse patient.[facility] HospitalIn the event this information is protected by the Federal Confidentiality of Alcohol and Drug Abuse Patient Records regulations: The Federal rules restrict any use of the information to criminally investigate or prosecute any alcohol or drug abuse patient.[facility] HospitalIn the event this information is protected by the Federal Confidentiality of Alcohol and Drug Abuse Patient Records regulations: The Federal rules restrict any use of the information to criminally investigate or prosecute any alcohol or drug abuse patient.[facility] HospitalIn the event this information is protected by the Federal Confidentiality of Alcohol and Drug Abuse Patient Records regulations: The Federal rules restrict any use of the information to criminally investigate or prosecute any alcohol or drug abuse patient.[facility] HospitalIn the event this information is protected by the Federal Confidentiality of Alcohol and Drug Abuse Patient Records regulations: The Federal rules restrict any use of the information to criminally investigate or prosecute any alcohol or drug abuse patient.[facility] HospitalIn the event this information is protected by the Federal Confidentiality of Alcohol and Drug Abuse Patient Records regulations: The Federal rules restrict any use of the information to criminally investigate or prosecute any alcohol or drug abuse patient.[facility] HospitalIn the event this information is protected by the Federal Confidentiality of Alcohol and Drug Abuse Patient Records regulations: The Federal rules restrict any use of the information to criminally investigate or prosecute any alcohol or drug abuse patient.[facility] HospitalIn the event this information is protected by the Federal Confidentiality of Alcohol and Drug Abuse Patient Records regulations: The Federal rules restrict any use of the information to criminally investigate or prosecute any alcohol or drug abuse patient.[facility] Goals (unrecognized section and content) Goals [...] BE BASED ON THE PRIMARY CLINICAL RECORDS. [facility]. provides no warranty or guarantee of the accuracy or completeness of information in this document.
--- NOTE | 2024-03-12 22:03 | ED_ITS ---
HPI - Abdominal Pain General Chief Complaint: Abdominal Pain Stated Complaint: ABDOMINAL PAIN Time Seen by Provider: 03/12/24 21:58 Source: patient Mode of arrival: walk-in History of Present Illness HPI narrative: 38-year-old female presents for pain on her right ovary. She was diagnosed with an ovarian cyst. She had been seen here in this emergency department and had a CAT scan. 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 Harley, and he did an ultrasound which report is available to me and it shows a 5.5 cm right ovarian cyst. She has had continued pain, that has not changed in any fashion. No fever or vomiting or injury. Related Data Home Medications ?Medication ?Instructions ?Recorded ?Confirmed aripiprazole 10 mg tablet 15 mg PO DAILY 12/13/22 10/02/23 buspirone 15 mg tablet 15 mg PO BID 12/13/22 10/02/23 cetirizine 10 mg tablet 10 mg PO DAILY 12/13/22 10/02/23 duloxetine 60 mg capsule,delayed 60 mg PO DAILY 12/13/22 10/02/23 release famotidine 20 mg tablet 20 mg PO Q12H PRN GI 12/13/22 10/02/23 hydroxyzine pamoate 50 mg capsule 50 mg PO DAILY PRN sleep 12/13/22 10/02/23 lamotrigine 100 mg tablet 100 mg PO DAILY 12/13/22 10/02/23 montelukast 10 mg tablet 10 mg PO DAILY 12/13/22 10/02/23 omeprazole 40 mg capsule,delayed 40 mg PO DAILY 12/13/22 10/02/23 release pantoprazole 40 mg tablet,delayed 40 mg PO DAILY GI 12/13/22 10/02/23 release propranolol 60 mg tablet 60 mg PO Q12H 12/13/22 10/02/23 hydrochlorothiazide 12.5 mg tablet 12.5 mg PO QDAY 10/02/23 10/02/23 rizatriptan 10 mg disintegrating 10 mg PO Q2H PRN migraine headache 10/02/23 10/02/23 tablet Previous Rx's ?Medication ?Instructions ?Recorded hydrocodone 5 mg-acetaminophen 325 1 tab PO Q6H PRN pain 5 days #20 03/12/24 mg tablet tabs Allergies Allergy/AdvReac Type Severity Reaction Status Date / Time adhesive tape Allergy Rash Verified 12/13/22 22:40 cephalexin [From Keflex] Allergy Rash Verified 12/13/22 22:40 Penicillins Allergy Rash Verified 12/13/22 22:40 amoxicillin [From Augmentin] AdvReac Gastrointestinal Verified 12/13/22 22:38 Upset clavulanic acid AdvReac Gastrointestinal Verified 12/13/22 22:38 [From Augmentin] Upset tramadol [From Ultram] AdvReac Gastrointestinal Verified 12/13/22 22:40 Upset Review of Systems ROS Narrative A ten point review of systems is negative except as noted above. [facility] Medical History (Updated 03/12/24 @ 23:34 by Eitan Cortes MD) Ulnar neuropathy ?G56.20 - Lesion of ulnar nerve, unspecified upper limb (ICD-10) Anemia ?D64.9 - Anemia, unspecified (ICD-10) Insomnia ?G47.00 - Insomnia, unspecified (ICD-10) PTSD (post-traumatic stress disorder) ?F43.10 - Post-traumatic stress disorder, unspecified (ICD-10) Panic attacks ?F41.0 - Panic disorder [episodic paroxysmal anxiety] (ICD-10) Anxiety ?F41.9 - Anxiety disorder, unspecified (ICD-10) Depression ?F32.A - Depression, unspecified (ICD-10) COVID-19 ?U07.1 - COVID-19 (ICD-10) Migraine ?G43.909 - Migraine, unspecified, not intractable, without status migrainosus (ICD-10) Kidney stones ?N20.0 - Calculus of kidney (ICD-10) Heartburn ?R12 - Heartburn (ICD-10) Hypertension ?I10 - Essential (primary) hypertension (ICD-10) Sleep apnea ?G47.30 - Sleep apnea, unspecified (ICD-10) Pituitary tumor ?D49.7 - Neoplasm of unspecified behavior of endocrine glands and other parts of nervous system (ICD-10) GERD (gastroesophageal reflux disease) ?K21.9 - Gastro-esophageal reflux disease without esophagitis (ICD-10) Eczema ?L30.9 - Dermatitis, unspecified (ICD-10) Chronic back pain ?M54.9 - Dorsalgia, unspecified (ICD-10) ?G89.29 - Other chronic pain (ICD-10) Bipolar depression ?F31.9 - Bipolar disorder, unspecified (ICD-10) Retained intrauterine contraceptive device (IUD) ?T83.39XA - Other mechanical complication of intrauterine contraceptive device, initial encounter (ICD-10) Surgical History (Updated 10/02/23 @ 09:19 by Mariia Moscoso NP) History of esophagogastroduodenoscopy (EGD) ?Z98.890 - Other specified postprocedural states (ICD-10) 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 - Bariatric surgery status (ICD-10) History of tonsillectomy ?Z90.89 - Acquired absence of other organs (ICD-10) History of cholecystectomy ?Z90.49 - Acquired absence of other specified parts of digestive tract (ICD- 10) History of carpal tunnel release ?Z98.890 - Other specified postprocedural states (ICD-10) History of spinal surgery ?Z98.890 - Other specified postprocedural states (ICD-10) History of spinal surgery ?Z98.890 - Other specified postprocedural states (ICD-10) H/O splenectomy ?Z90.81 - Acquired absence of spleen (ICD-10) H/O laparoscopy ?Z98.890 - Other specified postprocedural states (ICD-10) H/O gastric sleeve ?Z90.3 - Acquired absence of stomach [part of] (ICD-10) Family History (Updated 10/02/23 @ 09:19 by Mariia Moscoso NP) Other Family history of diabetes mellitus Family history of hypertension Family history of myocardial infarction Lymphoma Social History (Updated 10/02/23 @ 09:14 by Mariia Moscoso NP) Within the past year, how often did you have a drink containing alcohol: never Score interpretation: A score less than 3 is consistent with normal alcohol consumption. Smoking status: Former smoker Non-prescribed substance use: denies use Highest level of school completed/degree received: Associate degree: occu pational, technical, vocational program Little interest or pleasure in doing things: not at all Feeling down, depressed, or hopeless: not at all Exam Narrative Exam Narrative: Nurses note and vital signs reviewed and patient is not hypoxic. General: The patient appears in no apparent distress. Skin: Warm, dry, no pallor noted. There is no rash noted. Head: Normocephalic, atraumatic Eye: Normal conjunctiva, no drainage Ears, Nose, Mouth, and Throat: oral mucosa is moist. Nares patent. Cardiovascular: Regular Rate and Rhythm Respiratory: Patient is in no distress, no accessory muscle use, lungs are clear to auscultation, no wheezing, rales or rhonchi GI: Obese, soft, nondistended. Mild tenderness in the right lower abdomen. Musculoskeletal: The patient has no evidence of calf tenderness, no pitting edema, symmetrical pulses noted bilaterally Neurological: A&O, normal speech Psychiatric: Cooperative Constitutional Vital Signs, click to edit/add: Last Vital Signs Temp 98.1 F 03/12/24 20:49 Pulse 78 03/12/24 20:49 Resp 16 03/12/24 20:49 BP 128/80 03/12/24 20:49 Pulse Ox 100 03/12/24 20:49 O2 Del Method Room Air 03/12/24 20:49 Course Vital Signs Vital signs: Vital Signs Temperature 98.1 F 03/12/24 20:49 Pulse Rate 78 03/12/24 20:49 Respiratory Rate 16 03/12/24 20:49 Blood Pressure 128/80 03/12/24 20:49 Pulse Oximetry 100 03/12/24 20:49 Oxygen Delivery Method Room Air 03/12/24 20:49 Temperature 98.1 F 03/12/24 20:49 Pulse Rate 78 03/12/24 20:49 Respiratory Rate 16 03/12/24 20:49 Blood Pressure 128/80 03/12/24 20:49 Pulse Oximetry 100 03/12/24 20:49 Oxygen Delivery Method Room Air 03/12/24 20:49 MDM - Abdominal Pain MDM Narrative Medical decision making narrative: Blood work is nonspecific. She is feeling improved. I reviewed her ultrasound from a few days ago and it showed a 5.5 cm right ovarian cyst. I have no clinical suspicion of ovarian torsion in this patient. She is able to be discharged home on [place] and will follow-up with her established warehouse delivery driver. Treatment diagnosis and follow-up were discussed with the patient. Differential Diagnosis Differential diagnosis: Likely abdominal pain and other (Ovarian cyst, torsion) Lab Data Attestation: I reviewed the patient's lab results. Labs: Lab Results 03/12/24 03/12/24 Range/Units 22:00 22:20 WBC 17.1 H (4.0-11.0) 10^3/uL RBC 4.71 (4.20-5.40) 10^6/uL Hgb 13.4 (12.0-16.0) g/dL Hct 42.7 (36.0-48.0) % MCV 90.7 (81.0-99.0) fL MCH 28.5 (26.7-34.0) pg MCHC 31.4 (29.9-35.2) g/dL RDW 15.6 H (11.0-15.0) % Plt Count 567 H (150-450) 10^3/uL MPV 9.3 L (9.5-13.5) fL Seg Neuts % (Manual) 57.0 (43.0-75.0) Lymphocytes % (Manual) 24.0 (20.5-60.0) % Atypical Lymphs % (Man) 5.0 % Monocytes % (Manual) 10.0 (1.7-12.0) % Eosinophils % (Manual) 2.0 (0.9-7.0) % Basophils % (Manual) 2.0 (0.2-2.0) % Neutrophils # (Manual) 9.74 H (1.4-6.5) 10^3/uL Lymphocytes # (Manual) 4.10 H (1.20-3.80) 10^3/uL Abs Atypical Lymphs Man 0.85 Monocytes # (Manual) 1.71 H (0.30-0.80) 10^3/uL Eosinophils # (Manual) 0.34 (0.00-0.70) 10^3/uL Basophils # (Manual) 0.34 H (0.00-0.10) 10^3/uL Anisocytosis 1+ Sodium 139 (136-145) mmol/L Potassium 4.0 (3.5-5.1) mmol/L Chloride 102 (98-107) mmol/L Carbon Dioxide 29.9 (21.0-32.0) mmol/L Anion Gap 11.1 BUN 7.0 (7.0-18.0) mg/dL Creatinine 0.73 (0.55-1.02) mg/dL Est GFR ( Amer) >60 (>=60) Est GFR (Non-Af Amer) >60 (>=60) BUN/Creatinine Ratio 9.6 Glucose 96 (74-106) mg/dL Calcium 9.1 (8.5-10.1) mg/dL Serum HCG, Qual Negative (NEGATIVE) Urine Color Lt. yellow (YELLOW) Urine Clarity Clear (CLEAR) Urine pH 7.0 (5.0-9.0) Ur Specific [place] 1.010 (1.005-1.025) Urine Protein Negative (NEG/TRACE) mg/dL Urine Glucose (UA) Negative (NEGATIVE) mg/dL Urine Ketones Negative (NEGATIVE) mg/dL Urine Occult Blood Trace-i (NEGATIVE) Urine Nitrite Negative (NEGATIVE) Urine Bilirubin Negative (NEGATIVE) Urine Urobilinogen 0.2 (0.2-1.0) EU/dL Ur Leukocyte Esterase Negative (NEGATIVE) Urine RBC 0-2 (0-2) #/HPF Urine WBC 0-2 A (NONE SEEN) #/HPF Ur Squamous Epith Cells Few A (NONE/RARE) #/LPF Urine Crystals None seen (None Seen) #/HPF Urine Bacteria Trace A (NONE SEEN) #/HPF Urine Casts None seen (NONE SEEN) #/LPF Urine Mucus None seen (NONE SEEN) Discharge Plan Discharge Chief Complaint: Abdominal Pain Clinical Impression: Ovarian cyst Patient Disposition: Home, Self-Care Time of Disposition Decision: 23:34 Condition: Good Mode of Transportation: Private Vehicle Prescriptions / Home Meds: New hydrocodone-acetaminophen 5-325 mg tablet 1 tab PO Q6H PRN (Reason: pain) 5 Days Qty: 20 0RF No Action rizatriptan 10 mg tablet,disintegrating 10 mg PO Q2H PRN (Reason: migraine headache) hydrochlorothiazide 12.5 mg tablet 12.5 mg PO QDAY aripiprazole 10 mg tablet 15 mg PO DAILY Patient Comments: HS buspirone 15 mg tablet 15 mg PO BID cetirizine 10 mg tablet 10 mg PO DAILY duloxetine 60 mg capsule,delayed release(DR/EC) 60 mg PO DAILY famotidine 20 mg tablet 20 mg PO Q12H PRN (Reason: GI) hydroxyzine pamoate 50 mg capsule 50 mg PO DAILY PRN (Reason: sleep) lamotrigine 100 mg tablet 100 mg PO DAILY montelukast 10 mg tablet 10 mg PO DAILY omeprazole 40 mg capsule,delayed release(DR/EC) 40 mg PO DAILY pantoprazole 40 mg tablet,delayed release (DR/EC) 40 mg PO DAILY propranolol 60 mg tablet 60 mg PO Q12H Print Language: Luxembourgish Instructions: Ovarian Cyst (ED) Additional Instructions: Follow-up with Dr. Harley Referrals: Lisa Roberts NP [Primary Care Provider] - 1 week
[2024-03-12 22:24] LABS: Bilirubin Urine NEGATIVE (NEGATIVE); Blood Urine TRACE-I (NEGATIVE); Clarity Urine CLEAR (CLEAR); Color Urine LT. YELLOW (YELLOW); Glucose Urine UA NEGATIVE (NEGATIVE); Ketones Urine NEGATIVE (NEGATIVE); Leukocyte Esterase Urine NEGATIVE (NEGATIVE); Nitrite Urine NEGATIVE (NEGATIVE); Protein Urine NEGATIVE (NEG/TRACE); Urobilinogen Urine 0.2 EU/dL (0.2-1.0)
[2024-03-12 22:26] LABS: HCG Qualitative NEGATIVE (NEGATIVE); Internal Control Within Normal Limits
[2024-03-12] MEDS: KETOROLAC TROMETHAMINE 30 MG/ML VIAL IVP (22:31)
[2024-03-12] MEDS: ONDANSETRON PF 4 MG/2 ML VIAL IV (22:31)
[2024-03-12 22:37] LABS: Hematocrit 42.7 % (36.0-48.0); Hemoglobin 13.4 g/dL (12.0-16.0); Mean Corpuscular HGB Conc 31.4 g/dL (29.9-35.2); Mean Corpuscular Hemoglobin 28.5 pg (26.7-34.0); Mean Corpuscular Volume 90.7 fL (81.0-99.0); Mean Platelet Volume 9.3 fL (9.5-13.5); Platelet Count 567 10^3/uL (150-450); Red Blood Count 4.71 10^6/uL (4.20-5.40); Red Cell Distribution Width 15.6 % (11.0-15.0); White Blood Count 17.1 10^3/uL (4.0-11.0)
[2024-03-12 22:46] LABS: Anion Gap 11.1; BUN Creatinine Ratio 9.6; Calcium 9.1 mg/dL (8.5-10.1); Carbon Dioxide 29.9 mmol/L (21.0-32.0); Chloride 102 mmol/L (98-107); Estimated GFR (African America >60 (>=60); Estimated GFR (Non-African Ame >60 (>=60); Glucose 96 mg/dL (74-106); Sodium 139 mmol/L (136-145)
[2024-03-12 22:57] LABS: Bacteria Urine TRACE #/HPF (NONE SEEN); Cast Seen? NONE SEEN #/LPF (NONE SEEN); Crystals Seen? None Seen #/HPF (None Seen); Mucus Urine NONE SEEN (NONE SEEN); RBC Urine 0-2 #/HPF (0-2); Squamous Epithelial Cell Urine FEW #/LPF (NONE/RARE); WBC Urine 0-2 #/HPF (NONE SEEN)
[2024-03-12 23:07] LABS: Atypical Lymphocytes Abs Man 0.85; Basophils Abs Manual 0.34 10^3/uL (0.00-0.10); Eosinophils Absolute Manual 0.34 10^3/uL (0.00-0.70); Monocytes Absolute Manual 1.71 10^3/uL (0.30-0.80); Segmented Neut Absolute Manual 9.74 10^3/uL (1.4-6.5)
[2024-03-12 23:09] LABS: Anisocytosis 1+
[2024-03-12] MEDS: HYDROCODONE/ACET 5-325 MG TABLET 1 TAB PO (23:49)
== END 2024-03-12 23:50 | disposition home or self-care (01) ==
PROVIDERS: Emergency Provider Emergency Medicine; PCP Nurse Practitioner Family
DX: N83.201 Unspecified ovarian cyst, right side (principal); Z87.891 Personal history of nicotine dependence
CPT/HCPCS: 36415; 80048; 81001; 84703; 85007; 85027; 99284; J1885; J2405

== ENCOUNTER 2024-03-23 13:57 | Outpatient (OUT) | payer MEDICAID, SELFPAY ==
--- OUTSIDE RECORDS SUMMARY | 2024-03-23 14:14 | XMS_ITS | CCD ---
Author Organization [facility] Care Team Providers Care Talent Acquisition Manager Name Role Phone GENEVA ESTRADA Unavailable Unavailable [...] Unavailable LucasGeneva mauro CNP Primary Care Provider NON STAFF Primary Care Provider UnavailROBERT Jo Attending Provider [phone] Elizabet Simental Primary Care Provider [phone] Kaylin Simentalty Primary Care Provider ARMANDOC, DR JAVED Attending Unavailable MISC, DR JAVED Admitting Unavailable [facility] Primary Care Unavailable MISC, DR JAVED Attending Unavailable MISC, DR JAVED Consulting Unavailable MISC, DR JAVED Admitting Unavailable [facility] Primary Care Unavailable WEST, DR ESTELLA Steiner Consulting Unavailable REQUEST, DR GUTIÉRREZ LISTED Admitting Unavaila ble REQUEST, DR GUTIÉRREZ LISTED Attending Unavaila ble [facility] Primary Care Unavailable MISC, DR JAVED Consulting Unavailable MISC, DR JAVED Consulting Unavailable MISC, DR JAVED Admitting Unavailable [facility] Primary Care Unavailable MISC, DR JAVED Attending Unavailable Darrel Nichols Consulting Unavailable RUMSCHLAG, ELIZABET Consulting Unavailable MISC, DR JAVED Attending Unavailable MISC, DR JAVED Admitting Unavailable [facility] Primary Care Unavailable HAY ., DR STEPHENS Admitting Unavailable HAY ., DR STEPHENS Attending Unavailable [facility] Primary Care Unavailable LAYNECHNANETTE ., MICHELLE MCGINNIS Consulting Unavailabl e ESTELLA ALVES Consulting Unavailable LAYNECHNANETTE ., MICHELLE MCGINNIS Consulting Unavailabl e BERENICE BAKER Admitting Unavailable [facility] Primary Care Unavailable BERENICE BAKER Attending Unavailable MANPREET TORRES Consulting Unavailable JARON FABIAN Admitting Unavailable DENYS ., MR AGUILAR Consulting Unavailable JARON FABIAN Attending Unavailable [facility] Primary Care Unavailable Linda South Unavailable Christa Tyler Attending Unavailable Christa Tyler Admitting Unavailable NON STAFF Primary Care Unavailable Linda South Attending Unavailable Linda South Admitting Unavailable NON STAFF Primary Care Unavailable Rumschlag DO, Elizabet Primary Care Provider JOE GRANDA Attending Unavailable RUMSCHLAG, ELIZABET Primary Care Unavailable JOE GRANDA Admitting Unavailable OJE GRANDA Attending Unavailable RUMSCHLAG, ELIZABET Primary Care [...] Care Unavailable SAYRA RUPINDER Attending Unavailable GUTALEJANDRA REYNOLDSE R Referring Unavailable RUMSCHLAG, ELIZABET Primary Care Unavailable ALEJANDRA GRANDAE R Attending Unavailable OTILIO LEON Referring Unavailable [facility], [facility] Primary Care Unava ilable OTILIO LEON Referring Unavailable [facility], [facility] Primary Care Unava ilable OTILIO LEON Attending Unavailable CAROLYN, OTILIO Naqvi Referring Unavailable SERVICES, [facility] Unava ilable CAROLYN, OTILIO Naqvi Admitting Unavailable CAROLYN, OTILIO Naqvi Attending Unavailable CAROLYN, OTILIO Naqvi Referring Unavailable SERVICES, [facility] Unava ilable YOSHI DELGADO Attending Unavailable SERVICES, [facility] Unava ilable CAROLYN, OTILIO Naqvi Admitting Unavailable CAROLYN, OTILIO Naqvi Attending Unavailable CAROLYN, OTILIO Naqvi Referring Unavailable SERVICES, [facility] Unava ilable YOSHI DELGADO Attending Unavailable SERVICES, [facility] Unava ilable CHERRI, KIKO Attending Unavailable CHERRI, KIKO Attending Unavailable APLING, BUSHRA Mart Attending Unavailable APLING, BUSHRA Mart Referring Unavailable CAROLYN, OTILIO Naqvi Attending Unavailable APLING, BUSHRA Mart Attending Unavailable CAROLYN, OTILIO Naqvi Attending Unavailable APLING, BUSHRA Mart Attending Unavailable APLING, BUSHRA Mart Attending Unavailable PUJA BERRY Attending Unavailable MYZOHRA BELL Referring Unavailable CHERRI, KIKO Attending Unavailable JENS, PAUL Attending Unavailable MYERHOLTZ, ZOHRA Referring Unavailable Allergies Allergy Classification Reported Allergen(s) Allergy Type Date of Onset Reaction(s) Facility (2 sources) Adhesive Tape Propensity to adverse reactions to drug 10-11-19 17 [place] (6 sources) Penicillins; Translations: [PENICILLINS] Propensity to adverse reactions to drug 05-29-20 17 Hives, [place], [place] (14 sources) traMADol; Translations: [Ultram TABS] Drug Allergy 08-28-19 13 Hives, [place], [place] (20 sources) Amoxicillin-Pot Clavulanate; Translations: [AMOXICILLIN-POT CLAVULANATE] Propensity to adverse reactions to drug 10-11-19 17 Diarrhea, Other (See Comments) [place], [place] (20 sources) Cephalexin; Translations: [CEPHALEXIN] Drug Allergy 05-06-20 19 Rash, Itching [facility] (1 source) *Adhesive Tape Propensity to adverse reactions 11-10-19 07 [facility] (7 sources) Penicillins Drug Allergy 05-06-20 19 Hives [facility] (20 sources) traMADol; Translations: [TRAMADOL HCL] Drug Allergy 03-13-20 15 Itching [facility] (20 sources) Adhes. Loun-Npzz-Xdgvzax onium; Translations: [ADHES. DFQM-TNJO-QYCNUDC ONIUM] Drug Allergy 03-13-20 15 [facility] (20 sources) Adhesive Tape-Silicones; Translations: [ADHESIVE TAPE-SILICONES] Drug Allergy 05-06-20 19 [facility] (9 sources) Amoxicillin / Clavulanate; Translations: [Augmentin TABS] Drug Allergy stomach upset EG-WLEWD-Kvoybk r 206A [employer] Work Phone: (1 source) Cephalexin; Translations: [Keflex TABS] Drug Allergy ZY-FTQJH-Riihvi r 206A [facility] Work Phone: (1 source) Penicillins; Translations: [Penicillins] Allergy to drug (finding) HW-YBPMU-Gxthrp r 206A [facility] Work Phone: (11 sources) Adhesive agent; Translations: [Adhesive] Propensity to adverse reactions 11-10-19 07 rash,blisterin g, [facility] (8 sources) Cephalexin; Translations: [Keflex] Drug Allergy itchy [facility] (9 sources) Doxycycline Drug Allergy stomach upset Bitium Other (9 sources) penicillAMINE Drug Allergy rash Bitium Other (9 sources) Penicillin G Drug Allergy Unknown Bitium Other (20 sources) Penicillins Drug Allergy 05-06-20 19 [facility] (2 sources) Amoxicillin / Clavulanate Drug Allergy 12-18-19 17 stomach upset [facility] (1 source) Penicillins Drug allergy (disorder) [facility] (1 source) traMADol Drug Allergy 08-28-19 13 [facility] Medications Current Medications Medication Drug Class(es) [...] as needed. Take 2 tablets by mo [facility] every 6 hours for 4 days. ARIPiprazole [...] Citrate Active take 2 tablets by mo [facility] once daily, then take 1 tablet by [...] mg docusate sodium 50 mg / sennosides, correction 8.6 mg oral tablet (11 sources) Start: [...] unless otherwise advised. [facility]. DULoxetine 60 mg delayed release oral capsule (20 sources) Serotonin and Norepinephrine Reuptake Inhibitor Start: take 1 capsule by mouth twice daily DULoxetine [address] Particles capsule DR Take 60 mg by mouth 2 times daily. 0 04/25/2021 Active Start: 07-27-2019 take 1 capsule by mo [facility] once daily DULoxetine (CYMBALTA) 60 MG extended [...] therapy completed) take 1 capsule by mo [facility] every twenty-four hours Vistaril 25 MG 1 [...] 100 mg by mouth every morning. levonorgestrel 0.745752 mg/hr intrauterine system (19 sources) Progestin, Progestin-containing [...] 0 07/20/2023 10/18/2023 Active Start: 03-03-2023 omeprazole (VT ILOSEC) 40 mg capsule TAKE 1 CAPSULE BY MOUTH 30 MINUTES BEFORE morning meal 0 03/03/2023 Active Comment on above: TAKE 1 CAPSULE BY MO [facility] 30 MINUTES BEFORE morning meal Take 1 capsule by mo [facility] two times a day. Take 1 capsule by mo [facility] once daily. 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; Translations: [OTH USP CURRENT DRUG THERAPY] Onset: 3 Episodic Other [...] test) Ql (U) Negative Normal NEG [facility] Comment on above: Performed By: #### 2106-3 #### [facility] ([id number]) [address] [place] [address], [place] [address] VITAMIN John 11-27-2023 VITAMIN K 0.75 nmol/L Normal 0.22-4.88 [facility] Comment on above: Order Comment: Specimen Type: BLOOD SPEC IMENOrdering Facility: [facility] Address: [address] [place], [place] [address] Result Comment: INTE RPRETIVE INFORMATION: Vitamin K1, Serum Vitamin K concentration is reported as nanomoles per liter (nmol/L). To convert concentration to nanograms per milliliter (ng/mL), multiply the result by 0.45. This test was developed and its performance characteristics determined by [employer]. It has not been cleared or approved by the [place] Food and Drug Administration. This test was performed in a CLIA certified laboratory and is intended for clinical purposes. Performed By: [employer] [address] [place] [address] Plant Protection Superintendent: John Newsome MD, PhD CLIA Number: [id number] Performed By: #### V ITK ####[facility] [id number] [place] [address] HCG ( test) Ql (U)o n 11-04-2023 Beta HCG ( test) Ql (U) Negative Normal NEG [facility] Comment on above: Performed By: #### 2106-3 #### [facility] ([id number]) [address] [place] [address], [place] [address] 25([place]3 [facility] 25-hydroxyvitami n D3 [Mass/Vol] 29.3 ng/mL Low 31.0-80.0 [facility] Comment on above: Order Comment: Specimen Type: BLOOD SPEC IMEN Ordering Facility: [facility] Address: [address] [place] [address] Performed By: #### 2 284-8, 2731-8, 2132-9 #### [facility] CLIA [id number] [address] [place] [address] [place] [address] [place] A-Tocopherol Vit E SerPl-mCn con 10-28-2023 Alpha tocopherol [Mass/Vol] 7.0 mg/L Normal 6.0-23.0 [facility] Comment on above: Order Comment: Specimen Type: BLOOD SPEC IMENOrdering Facility: [facility] Address: [address] [place] [address] Performed By: #### 2 923-1, 182- ####[facility] [id number] [place] [address] [place] Alpha tocopherol [Mass/Vol]o n 10-28-2023 Beta+gamma tocopherol [Mass/Vol] 0.7 mg/L Normal 0.3-3.2 [facility] Comment on above: Order Comment: Specimen Type: BLOOD SPEC IMENOrdering Facility: [facility] Address: [address] [place] [address] Result Comment: This test was developed and its performance characteristics determined by [facility] [place] ([facility]). It has not been cleared or approved by the FDA. [facility] is regulated under CLIA as qualified to perform high-complexity testing. This test is used for clinical purposes. It should not be regarded as investigational or for research. Performed By: #### 2 923-1, 1822-09 ####[facility] [id number] [address] [place] CBC panel Auto (Bld)on 10-27 Erythrocyte distribution width (RBC) [Ratio] 14.3 % Normal 11.5-15.0 [facility] Comment on above: Order Comment: Specimen Type: BLOOD SPEC IMENOrdering Facility: [facility] Address: [address] [place] [address] Performed By: #### 5 8410-2 ####[facility] [id number] [place] [address] Hematocrit (Bld) [Volume fraction] 43.5 % Normal 36.0-46.0 [facility] Comment on above: Order Comment: Specimen Type: BLOOD SPEC IMENOrdering Facility: [facility] Address: [address] [place] [address] Performed By: #### 5 8410-2 ####[facility] [id number] [place] [address] Hemoglobin (Bld) [Mass/Vol] 13.6 g/dL Normal 11.5-15.5 [facility] Comment on above: Order Comment: Specimen Type: BLOOD SPEC IMENOrdering Facility: [facility] Address: [address] [place] [address] Performed By: #### 5 8410-2 ####[facility] [id number] [place] [address] MCH (RBC) [Entitic mass] 27.5 pg Normal 26.0-34.0 [facility] Comment on above: Order Comment: Specimen Type: BLOOD SPEC IMENOrdering Facility: [facility] Address: [address] [place] [address] Performed By: #### 5 8410-2 ####[facility]IA [id number] [place] [address] MCHC (RBC) [Mass/Vol] 31.3 g/dL Normal 30.5-36.0 [facility] Comment on above: Order Comment: Specimen Type: BLOOD SPEC IMENOrdering Facility: [facility] Address: [address] [place] [address] Performed By: #### 5 8410-2 ####[facility]IA [id number] [place] [address] MCV (RBC) [Entitic vol] 88.1 fL Normal 80.0-100.0 [facility] Comment on above: Order Comment: Specimen Type: BLOOD SPEC IMENOrdering Facility: [facility] Address: [address] [place] [address] Performed By: #### 5 8410-2 ####[facility]IA [id number] [place] [address] Nucleated RBC (Bld) [#/Vol] 10*3/uL Normal <0.01 [facility] Comment on above: Order Comment: Specimen Type: BLOOD SPEC IMENOrdering Facility: [facility] Address: [address] [place] [address] Performed By: #### 5 8410-2 ####[facility] [id number] [place] [address] Platelet mean volume (Bld) [Entitic vol] 8.8 fL Low 9.0-12.7 [facility] Comment on above: Order Comment: Specimen Type: BLOOD SPEC IMENOrdering Facility: [facility] Address: [address] [place] [address] Performed By: #### 5 8410-2 ####[facility] [id number] [place] [address] Platelets (Bld) [#/Vol] 722 10*3/uL High 150-400 [facility] Comment on above: Order Comment: Specimen Type: BLOOD SPEC IMENOrdering Facility: [facility] Address: [address] [place] [address] Performed By: #### 5 8410-2 ####[facility] [id number] [place] [address] RBC (Bld) [#/Vol] 4.94 10*6/uL Normal 3.90-5.20 [facility] Comment on above: Order Comment: Specimen Type: BLOOD SPEC IMENOrdering Facility: [facility] Address: [address] [place] [address] Performed By: #### 5 8410-2 ####[facility] LABIA [id number] [place] [address] WBC (Bld) [#/Vol] 14.70 10*3/uL High 3.70-11.00 [facility] Comment on above: Order Comment: Specimen Type: BLOOD SPEC IMENOrdering Facility: [facility] Address: [address] [place] [address] Performed By: #### 5 8410-2 ####[facility] LABCLIA [id number] [place] [address] Comprehensive metabolic 2000 panelon 10-28-2023 Albumin [Mass/Vol] 4.2 g/dL Normal 3.9-4.9 [facility] Comment on above: Order Comment: Specimen Type: BLOOD SPEC IMEN Order[facility] Facility: [facility] Address: [address] [place] [address] Performed By: #### 2 284-8, 2730-8, 2132-02 #### [facility] CLIA [id number] [address] [place] [address] [place] ALP [Catalytic activity/Vol] 137 U/L High 34-123 [facility] Comment on above: Order Comment: Specimen Type: BLOOD SPEC IMEN Order[facility]: [facility] Address: [address] [place] [address] Performed By: #### 2 284-8, 2730-8, 2132-02 #### [facility] CLIA [id number] [address] [place] [address] [place] ALT [Catalytic activity/Vol] 37 U/L Normal 7-38 [facility] Comment on above: Order Comment: Specimen Type: BLOOD SPEC IMEN [facility] Address: [address] [place] [address] Performed By: #### 2 284-8, 8, 2132-02 #### [facility] CLIA [id number] [address] [place], [place] [address] [place] Anion gap [Moles/Vol] 10 mmol/L Normal 9-18 [facility] Comment on above: Order Comment: Specimen Type: BLOOD SPEC IMEN [facility] Facility[facility] Address: [address] [place] [address] Performed By: #### 2 284-8, 273-8, 2132-02 #### [facility] CLIA [id number] [address] [place] [address] [place] AST [Catalytic activity/Vol] 25 U/L Normal 13-35 [facility] Comment on above: Order Comment: Specimen Type: BLOOD SPEC IMEN [facility]: [facility] Address: [address] [place] [address] Performed By: #### 2 284-8, 1-8, 2132-02 #### [facility] CLIA [id number] [address] [place] [address] [place] Bilirubin [Mass/Vol] mg/dL Low 0.2-1.3 [facility] Comment on above: Order Comment: Specimen Type: BLOOD SPEC IMEN [facility]: [facility] Address: [address] [place] [address] Performed By: #### 2 284-8, 8, 2132-02 #### [facility] CLIA [id number] [address] [place] [address] [place] Calcium [Mass/Vol] 9.5 mg/dL Normal 8.5-10.2 [facility] Comment on above: Order Comment: Specimen Type: BLOOD SPEC IMEN Order[facility] Facility: [facility] Address: [address] [place] [address] Performed By: #### 2 284-8, 2730-8, 2132-02 #### [facility] CLIA [id number] [address] [place] [address] [place] Chloride [Moles/Vol] 101 mmol/L Normal 97-105 [facility] Comment on above: Order Comment: Specimen Type: BLOOD SPEC IMEN Order[facility] Facility: [facility] Address: [address] [place] [address] Performed By: #### 2 284-8, 2731-8, 2132-02 #### [facility] CLIA [id number] [address] [place] [address] [place] CO2 [Moles/Vol] 26 mmol/L Normal 22-30 [facility] Comment on above: Order Comment: Specimen Type: BLOOD SPEC IMEN [facility] Facility: [facility] Address: [address] [place] [address] Performed By: #### 2 284-8, 1-8, 2132-02 #### [facility] CLIA [id number] [address] [place] [address] [place] Creatinine [Mass/Vol] 0.76 mg/dL Normal 0.58-0.96 [facility] Comment on above: Order Comment: Specimen Type: BLOOD SPEC IMEN [facility]: [facility] Address: [address] [place] [address] Performed By: #### 2 284-8, 2730-8, 2132-02 #### [facility] CLIA [id number] [address] [place] [address] [place] Creatinine and Glomerular filtration rate.predicted panel (S/P/Bld) 103 mL/min/1.73m??? Normal >=60 [facility] Comment on above: Order Comment: Specimen Type: BLOOD SPEC IMEN [facility] Address: [address] [place] [address] Result Comment: Janet mated Glomerular Filtration Rate [...] By: #### 2 284-8, 2730-8, 2132-02 #### [facility] CLIA [id number] [address] [place] [address] [place] Glucose [Mass/Vol] 155 mg/dL High 74-99 [facility] Comment on above: Order Comment: Specimen Type: BLOOD SPEC IMEN [facility]: [facility] Address: [address] [id number] Result Comment: The [place] Diabetes Association (ADA) provides guidance for cutoff [...] Standards of Medical Care in Diabetes 2016, [place] [employer]. Diabetes Care. 2016.39(Suppl 1). Performed By: #### 2 284-8, 2731-01, 2132-02 #### [facility] CLIA [id number] [address] [place] [address] [place] Potassium [Moles/Vol] 3.7 mmol/L Normal 3.7-5.1 [facility] Comment on above: Order Comment: Specimen Type: BLOOD SPEC IMEN [facility] Facility[facility] Address: [address] [place] [address] Performed By: #### 2 284-8, 2731-01, 2132-02 #### [facility] CLIA [id number] [address] [place] [address] [place] Protein [Mass/Vol] 7.9 g/dL Normal 6.3-8.0 [facility] Comment on above: Order Comment: Specimen Type: BLOOD SPEC IMEN [facility] Address: [address] [place] [address] Performed By: #### 2 284-8, 2731-01, 2132-02 #### [facility] CLIA [id number] [address] [place] [address] [place] Sodium [Moles/Vol] 137 mmol/L Normal 136-144 [facility] Comment on above: Order Comment: Specimen Type: BLOOD SPEC IMEN [facility] Address: [address] [place] [address] Performed By: #### 2 284-8, 2731-8, 9 #### [facility] CLIA [id number] [address] [place] [address] [place] Urea nitrogen [Mass/Vol] 11 mg/dL Normal 7-21 [facility] Comment on above: Order Comment: Specimen Type: BLOOD SPEC IMEN [facility] Facility: [facility] Address: [address] [place] [address] Performed By: #### 2 284-8, 2731-8, 9 #### [facility] CLIA [id number] [address] [place] [address] [place] Ferritin SerPl-mCncon 2023 Ferritin [Mass/Vol] 50.4 ng/mL Normal 14.7-205.1 [facility] Comment on above: Order Comment: Specimen Type: BLOOD SPEC IMENOrdering Facility: [facility] Address: [address] [place] [address] Performed By: #### 2 276-4, 21166-1 ####[facility] [id number] [place] [address] [place] Folate SerPl-mCncon 10-28-19 Folate [Mass/Vol] 15.7 ng/mL Normal >4.7 [facility] Comment on above: Order Comment: Specimen Type: BLOOD SPEC IMEN Order[facility] Facility: [facility] Address: [address] [place] [address] Performed By: #### 2 284-8, 2731-8, 2131-9 #### [facility] CLIA [id number] [address] [place] [address] [place] HbA1c (Bld)on 10-28-2023 Average glucose Estimated from glycated hemoglobin (Bld) [Mass/Vol] 128 mg/dL Normal [facility] Comment on above: Order Comment: Specimen Type: BLOOD SPEC IMEN Order[facility] Facility: [facility] Address: [address] [place] [address] Result Comment: eAG: (Estimated average glucose) is a calculated value from HgbA1c and is delivery representative of the average blood glucose level in the last 2-3 month period. Performed By: #### 5 5454-3 #### [facility] CLIA [id number] [address] [place] [address] [place] [place] HbA1c (Bld) [Mass fraction] 6.1 % High 4.3-5.6 [facility] Comment on above: Order Comment: Specimen Type: BLOOD SPEC IMEN Ordering Facility: [facility] Address: [address] [place] [address] Result Comment: [place] Diabetes Association guidelines indicate that patients with HgbA1c in the range 5.7-6.4% are at increased risk for development of diabetes, and intervention by lifestyle modification may be beneficial. HgbA1c greater or equal to 6.5% is considered diagnostic of diabetes. Performed By: #### 5 5454-3 #### [facility] CLIA [id number] [address] [place] [address] [place] Iron and Iron binding capaci ty panelon 10-28-2023 Iron [Mass/Vol] 29 ug/dL Low 41-186 [facility] Comment on above: Order Comment: Specimen Type: BLOOD SPEC IMENOrdering Facility: [facility] Address: [address] [place] [address] Performed By: #### 2 276-4, 32488-1 ####[facility] [id number] [place] [address] [place] Iron binding capacity [Mass/Vol] 369 ug/dL Normal 232-386 [facility] Comment on above: Order Comment: Specimen Type: BLOOD SPEC IMENOrdering Facility: [facility] Address: [address] [place] [address] Performed By: #### 2 276-4, 46992-0 ####[facility] [id number] [place] [address] [place] Iron/TIBC [Molar ratio] 7.9 % Low 15.0-57.0 [facility] Comment on above: Order Comment: Specimen Type: BLOOD SPEC IMENOrdering Facility: [facility] Address: [address] [place] [address] Performed By: #### 2 276-4, 64811-7 ####[facility] [id number] [place] [address] [place] PTH-Intact SerPl-mCncon 05-0 Parathyrin.intac t [Mass/Vol] 60 pg/mL Normal 15-65 [facility] Comment on above: Order Comment: Specimen Type: BLOOD SPEC IMEN Ordering Facility: [facility] Address: [address] [place] [address] Performed By: #### 2 284-8, 2731-8, 2132-9 #### [facility] CLIA [id number] [address] [place] [address] [place] VITAMIN B1 (THIAMINE), WHOLE BLOODon 10-28-2023 Thiamine (Bld) [Moles/Vol] 289.8 nmol/L High 84.3-213.3 [facility] Comment on above: Order Comment: Specimen Type: BLOOD SPEC IMENOrdering Facility: [facility] Address: [address] [place] [address] Result Comment: This assay measures the concentration of thiamine diphosphate (TDP), the primary active form of vitamin B1. Approximately 90 percent of vitamin B1 present in whole blood is TDP. Thiamine and thiamine monophosphate, which comprise the remaining 10 percent, are not measured. This test was developed and its performance characteristics determined by [facility] ([facility]). It has not been cleared or approved by the FDA. -[facility] is regulated under CLIA as qualified to perform high-complexity testing. This test is used for clinical purposes. It should not be regarded as investigational or for research. Performed By: #### B 1WB ####[facility] [id number] [place] [address] [place] VITAMIN John 10-28-2023 VITAMIN K 6.74 nmol/L High 0.22-4.88 [facility] Comment on above: Order Comment: Specimen Type: BLOOD SPEC IMEN Ordering Facility: [facility] Address: [address] [place] [address] Result Comment: Elevated vitamin K concentration may be associated with increased lipid concentration. INTERPRETIVE INFORMATION: Vitamin K1, Serum Vitamin K concentration is reported as nanomoles per liter (nmol/L). To convert concentration to nanograms per milliliter (ng/mL), multiply the result by 0.45. This test was developed and its performance characteristics determined by [employer]. It has not been cleared or approved by the US Food and Drug Administration. This test was performed in a CLIA certified laboratory and is intended for clinical purposes. Performed By: [employer] [address] [place] [address] Plant Protection Superintendent: John Newsome MD, PhD CLIA Number: [id number] Performed By: #### 2 284-8, 2731-8, 2132-9 #### [facility] CLIA [id number] [address] [place] [address] [place] Vit A SerPl-mCncon 4 Retinol [Mass/Vol] 0.37 mg/L Normal 0.30-1.20 [facility] Comment on above: Order Comment: Specimen Type: BLOOD SPEC IMENOrdering Facility: [facility] Address: [address] [place] [address] Result Comment: This test was developed and its performance characteristics determined by [facility] ([facility]). It has not been cleared or approved by the FDA. -[facility] is regulated under CLIA as qualified to perform high-complexity testing. This test is used for clinical purposes. It should not be regarded as investigational or for research. Performed By: #### 2 923-1, 1823-4 ####[facility] [id number] [place] [address] [place] Vit B12 SerPl-[facility] 024 Cobalamin (Vitamin B12) [Mass/Vol] 817 pg/mL Normal 232-1245 [facility] Comment on above: Order Comment: Specimen Type: BLOOD SPEC IMEN Ordering Facility: [facility] Address: [address] [place] [address] Performed By: #### 2 284-8, 2730-8, 2132-02 #### [facility] CLIA [id number] [address] [place] [address] [place] [facility]2023 Zinc [Mass/Vol] 45 ug/dL Low 60-120 [facility] Comment on above: Order Comment: Specimen Type: BLOOD SPEC IMEN Ordering Facility: [facility] Address: [address] [place] [address] Result Comment: This test was developed and its performance characteristics determined by [facility] ([facility]). It has not been cleared or approved by the FDA. [facility] is regulated under CLIA as qualified to perform high-complexity testing. This test is used for clinical purposes. It should not be regarded as investigational or for research. Performed By: #### 2 284-8, 273-8, 2132-02 #### [facility] CLIA [id number] [address] [place] [address] [place] BASIC METABOLIC PANLon 10-19 Anion gap [Moles/Vol] 12 mmol/L Normal 5-15 [facility] Comment on above: Performed By: #### BMP #### [facility] ([id number]) [address], [address] [place] [address] Calcium [Mass/Vol] 9.7 mg/dL Normal 8.5-10.5 [facility] Comment on above: Performed By: #### BMP #### [facility] ([id number]) [address], [address] [place] [address] Chloride [Moles/Vol] 100 mmol/L Normal 98-109 [facility] Comment on above: Performed By: #### BMP #### [facility] ([id number]) [address], [address] [place] [address] CO2 [Moles/Vol] 25 mmol/L Normal 22-32 [facility] Comment on above: Performed By: #### BMP #### [facility] ([id number]) [address], [address] [place] [address] Creatinine [Mass/Vol] 0.72 mg/dL Normal 0.40-1.00 [facility] Comment on above: Result Comment: METHOD TRACEABLE TO IDMS STANDARD Performed By: #### B MP #### [facility] ([id number]) [address], [address] [place] [address] eGFR (CKD-EPI) NON-RACE DEPENDENT >90 Normal >59 [facility] Comment on above: Result Comment: Reported eGFR is based on the CKD-EPI 2020 equation that does not use a race coefficient. Performed By: #### B MP #### [facility] ([id number]) [address], [address] [place] [address] Glucose [Mass/Vol] 89 mg/dL Normal 65-99 [facility] Comment on above: Performed By: #### BMP #### [facility] ([id number]) [address], [address] [place] [address] Potassium [Moles/Vol] 4.0 mmol/L Normal 3.5-5.0 [facility] Comment on above: Performed By: #### BMP #### [facility] ([id number]) [address], [address] [place] [address] Sodium [Moles/Vol] 137 mmol/L Normal 134-146 [facility] Comment on above: Performed By: #### BMP #### [facility] ([id number]) [address] [place] [address], [address] [place] [address] Urea nitrogen [Mass/Vol] 18 mg/dL Normal 5-23 [facility] Comment on above: Performed By: #### BMP #### [facility] ([id number]) [address], [address] [place] [address] CNOVon 09-07-2023 CNOV Office Visit (BMINO) SUSI ORTIZ ([id number]) 1985 F FNS Date Time Provider Department 09/07/23 9:30 AM JAYSHREE HUFFMAN During your visit today, we recorded the following information about you: Temperature Pulse Blood pressure Weight 98 degrees 80/minute 107/81 169.9 kg Height 1.626 m Jayshree Huffman APRN.CNP 09/07/2023 10:12 AM Signed BMI SURGERY Post [...] loss: 6.128 kg (13 lb 8.2 oz) Hermann weight: 66.1 kg (145 lb 10.6 oz) [...] Orders FOLLOW UP: as scheduled Jayshree Huffman APRN.MEDICAL SCRIBE Referring Provider: JOE GRANDA [[id number]] Allergies As of Date: 09/07/2023 Noted Allergy Reaction AD (more content not included)... Normal [facility] ANES POSTPROC EVALon 024 ANES POSTPROC EVAL HNO ID: [id number] Author: AMANDA ALCANTAR DO Service: Anesthesiology Author [...] August 17, 2023 TIME: 11:37 AM CSN: [id number] [facility] CNOVon 08-17-2023 CNOV Office Visit (BMIREJ ) SUSI ORTIZ ([id number]) 1985 F FNS Date Time Provider Department [...] loss: 8.2 kg (18 lb 1.2 oz) Hermann weight: 66.1 kg (145 lb 10.6 oz) [...] (Approximate) SpO2 97% BMI 63.50 kg/m? AANDO, hayden, NAD Incision: dermabond prineo intact over entire [...] advance diet (more content not included)... Normal [facility] 08-13-2023 CNPN Telephone (GENBMI) SUSI ORTIZ ([id number]) 1985 F FNS Date Time Provider Department [...] appt. Reminded patient of how to reach [facility] or their surgeons office. Patient reminded to seek medical attention if they develop chest pain, a sudden onset of shortness of breath or persistent pain in the calf of their legs - BEST TO ALWAYS present to [facility] hospital where you had your surgery Patient verbalized understanding of all advice and instructions given. Niki Peterson RN Allergies As of Date: 08/13/2023 Noted Allergy Reaction ADHES. [id number]-MZMI-CIDOBXESTFJN 03/13/2015 2 - Rash ADHESIVE TAPE-SILICONES 05/06/2019 [...] (more content not included)... Normal [facility] Basic metabolic 2000 panelon 08-11-2023 Anion gap [Moles/Vol] 13 mmol/L Normal 9-18 [facility] Comment on above: Order Comment: Specimen Type: BLOOD SPEC IMENOrdering Facility: [facility] Address: [address] [place] [address] Performed By: #### 1 9123-9, 2777-, 74608-9 ####[facility] [id number] [place] [id number] [place] Calcium [Mass/Vol] 8.8 mg/dL Normal 8.5-10.2 [facility] Comment on above: Order Comment: Specimen Type: BLOOD SPEC IMENOrdering Facility: [facility] Address: [address] [place] [address] Performed By: #### 1 9123-9, 2777-, 83073-2 ####[facility] [id number] [place] [id number] [place] Chloride [Moles/Vol] 105 mmol/L Normal 97-105 [facility] Comment on above: Order Comment: Specimen Type: BLOOD SPEC IMENOrdering Facility: [facility] Address: [address] [place] [address] Performed By: #### 1 9123-9, 2777, 37761-6 ####[facility] [id number] [place] [id number] [place] CO2 [Moles/Vol] 20 mmol/L Low 22-30 [facility] Comment on above: Order Comment: Specimen Type: BLOOD SPEC IMENOrdering Facility: [facility] Address: [facility] [place] [address] Performed By: #### 1 9123-9, 2777-1, 39525-8 ####[facility] [id number] [place] [id number] [place] Creatinine [Mass/Vol] 0.57 mg/dL Low 0.58-0.96 [facility] Comment on above: Order Comment: Specimen Type: BLOOD SPEC IMENOrdering Facility: [facility] Address: [address] [place] [address] Performed By: #### 1 9123-9, 2777-1, 56767-1 ####[facility] [id number] [place] [id number] [facility] Creatinine and Glomerular filtration rate.predicted panel (S/P/Bld) 119 mL/min/1.73m??? Normal >=60 [facility] Comment on above: Order Comment: Specimen Type: BLOOD SPEC IMENOrdering Facility: [facility] Address: [address] [place] [address] Result Comment: Janet mated Glomerular Filtration Rate [...] GFR. Performed By: #### 1 9123-9, 2777-1, 86136-5 ####[facility] [id number] [place] [id number] [place] Glucose [Mass/Vol] 92 mg/dL Normal 74-99 [facility] Comment on above: Order Comment: Specimen Type: BLOOD SPEC IMENOrdering Facility: [facility] Address: [address] [place] [address] Result Comment: The [place] Diabetes Association (ADA) provides guidance for cutoff [...] Standards of Medical Care in Diabetes 2016, [place] Diabetes Association. Diabetes Care. 2016.39(Suppl 1). Performed By: #### 1 9123-9, 2777-, 60619-1 ####[facility] [id number] [place] [id number] [place] Potassium [Moles/Vol] 4.2 mmol/L Normal 3.7-5.1 [facility] Comment on above: Order Comment: Specimen Type: BLOOD SPEC IMENOrdering Facility: [facility] Address: [address] [place] [address] Performed By: #### 1 9123-9, 27712-27, 23151-3 ####[facility]ATORYCLIA [id number] [place] [id number] [place] Sodium [Moles/Vol] 138 mmol/L Normal 136-144 [facility] Comment on above: Order Comment: Specimen Type: BLOOD SPEC IMENOrdering Facility: [facility] Address: [address] [place] [address] Performed By: #### 1 9123-9, 27712-27, 26383-7 ####[facility]ATORYCLIA [id number] [place] [id number] [place] Urea nitrogen [Mass/Vol] 3 mg/dL Low 7-21 [facility] Comment on above: Order Comment: Specimen Type: BLOOD SPEC IMENOrdering Facility: [facility] Address: [address] [place] [address] Performed By: #### 1 9123-9, 2777, 55176-0 ####[facility] LABORATORYCLIA [id number] [place] [id number] [place] CBC W Auto Differential pane l (Bld)on 08-11-2023 Basophils (Bld) [#/Vol] 0.00 10*3/uL Normal <0.11 [facility] Comment on above: Order Comment: Specimen Type: BLOOD SPEC IMENOrdering Facility: [facility] Address: [address] [place] [address] Performed By: #### 5 7021-8 ####[facility] LABORATORYCLIA [id number] [address] [place] Basophils/100 WBC (Bld) 0.0 % Normal [facility] Comment on above: Order Comment: Specimen Type: BLOOD SPEC IMENOrdering Facility: [facility] Address: [address] [place] [address] Performed By: #### 5 7021-8 ####[facility]ORY[facility] [id number] [address] [place] Differential cell count method Nom (Bld) Manual Normal [facility] Comment on above: Order Comment: Specimen Type: BLOOD SPEC IMENOrdering Facility: [facility] Address: [address] [place] [address] Performed By: #### 5 7021-8 ####[facility] LABORATORYCLIA [id number] [place] [address] [place] Eosinophils (Bld) [#/Vol] 0.62 10*3/uL High <0.46 [facility] Comment on above: Order Comment: Specimen Type: BLOOD SPEC IMENOrdering Facility: [facility] Address: [address] [place] [address] Performed By: #### 5 7021-8 ####[facility] LABORATORYCLIA [id number] [address] Eosinophils/100 WBC (Bld) 4.0 % Normal [facility] Comment on above: Order Comment: Specimen Type: BLOOD SPEC IMENOrdering Facility: [facility] Address: [address] [place] [address] Performed By: #### 5 7021-8 ####[facility]ORYCLIA [id number] [place] [id number] [place] Erythrocyte distribution width (RBC) [Ratio] 14.8 % Normal 11.5-15.0 [facility] Comment on above: Order Comment: Specimen Type: BLOOD SPEC IMENOrdering Facility: [facility] Address: [address] [place] [address] Performed By: #### 5 7021-8 ####[facility]ORYCLIA [id number] [place] [id number] [place] Hematocrit (Bld) [Volume fraction] 36.9 % Normal 36.0-46.0 [facility] Comment on above: Order Comment: Specimen Type: BLOOD SPEC IMENOrdering Facility: [facility] Address: [address] [place] [address] Performed By: #### 5 7021-8 ####[facility] LABORATORYCLIA [id number] [place] [id number] [place] Hemoglobin (Bld) [Mass/Vol] 11.8 g/dL Normal 11.5-15.5 [facility] Comment on above: Order Comment: Specimen Type: BLOOD SPEC IMENOrdering Facility: [facility] Address: [address] [place] [address] Performed By: #### 5 7021-8 ####[facility]ORYCLIA [id number] [place] [address] [place] Lymphocytes (Bld) [#/Vol] 3.59 10*3/uL Normal 1.00-4.00 [facility] Comment on above: Order Comment: Specimen Type: BLOOD SPEC IMENOrdering Facility: [facility] Address: [address] [place] [address] Performed By: #### 5 7021-8 ####[facility]ORYCLIA [id number] [place] [id number] [place] Lymphocytes/100 WBC (Bld) 22.0 % Normal [facility] Comment on above: Order Comment: Specimen Type: BLOOD SPEC IMENOrdering Facility: [facility] Address: [address] [place] [address] Performed By: #### 5 7021-8 ####[facility]ORYCLIA [id number] [place] [id number] [place] MCH (RBC) [Entitic mass] 29.6 pg Normal 26.0-34.0 [facility] Comment on above: Order Comment: Specimen Type: BLOOD SPEC IMENOrdering Facility: [facility] Address: [address] [place] [address] Performed By: #### 5 7021-8 ####[facility] LABORATORYCLIA [id number] [place] [id number] [place] MCHC (RBC) [Mass/Vol] 32.0 g/dL Normal 30.5-36.0 [facility] Comment on above: Order Comment: Specimen Type: BLOOD SPEC IMENOrdering Facility: [facility] Address: [address] [place] [address] Performed By: #### 5 7021-8 ####[facility] LABORATORYCLIA [id number] [place] [id number] [place] MCV (RBC) [Entitic vol] 92.7 fL Normal 80.0-100.0 [facility] Comment on above: Order Comment: Specimen Type: BLOOD SPEC IMENOrdering Facility: [facility] Address: [address] [place] [address] Performed By: #### 5 7021-8 ####[facility] LABORATORYCLIA [id number] [place] [address] [place] Monocytes (Bld) [#/Vol] 1.56 10*3/uL High <0.87 [facility] Comment on above: Order Comment: Specimen Type: BLOOD SPEC IMENOrdering Facility: [facility] Address: [address] [place] [address] Performed By: #### 5 7021-8 ####[facility]ORYCLIA [id number] [place] [id number] [place] Monocytes/100 WBC (Bld) 10.0 % Normal [facility] Comment on above: Order Comment: Specimen Type: BLOOD SPEC IMENOrdering Facility: [facility] Address: [address] [place] [address] Performed By: #### 5 7021-8 ####[facility] LABORATORYCLIA [id number] [place] [id number] [place] Neutrophils (Bld) [#/Vol] 9.83 10*3/uL High 1.45-7.50 [facility] Comment on above: Order Comment: Specimen Type: BLOOD SPEC IMENOrdering Facility: [facility] Address: [address] [place] [address] Performed By: #### 5 7021-8 ####[facility]ATORYCLIA [id number] [place] [id number] [place] Neutrophils/100 WBC (Bld) 63.0 % Normal [facility] Comment on above: Order Comment: Specimen Type: BLOOD SPEC IMENOrdering Facility: [facility] Address: [address] [place] [address] Performed By: #### 5 7021-8 ####[facility] LABORATORYCLIA [id number] [place] [id number] [place] Nucleated RBC (Bld) [#/Vol] 0.16 10*3/uL High <0.01 [facility] Comment on above: Order Comment: Specimen Type: BLOOD SPEC IMENOrdering Facility: [facility] Address: [address] [place] [address] Performed By: #### 5 7021-8 ####[facility]ATORYCLIA [id number] [place] [id number] [place] Nucleated RBC/100 WBC (Bld) [Ratio] 1.0 /100 WBC Normal [facility] Comment on above: Order Comment: Specimen Type: BLOOD SPEC IMENOrdering Facility: [facility] Address: [address] [place] [address] Performed By: #### 5 7021-8 ####[facility]ATORYCLIA [id number] [place] [id number] [place] Platelet mean volume (Bld) [Entitic vol] 9.4 fL Normal 9.0-12.7 [facility] Comment on above: Order Comment: Specimen Type: BLOOD SPEC IMENOrdering Facility: [facility] Address: [address] [place] [address] Performed By: #### 5 7021-8 ####[facility]ORATORYCLIA [id number] [place] [id number] [place] Platelets (Bld) [#/Vol] 579 10*3/uL High 150-400 [facility] Comment on above: Order Comment: Specimen Type: BLOOD SPEC IMENOrdering Facility: [facility] Address: [address] [place] [address] Performed By: #### 5 7021-8 ####[facility]ATORYCLIA [id number] [place] [address] [place] Platelets Estimate (Bld) [#/Vol] Increased Normal [facility] Comment on above: Order Comment: Specimen Type: BLOOD SPEC IMENOrdering Facility: [facility] Address: [address] [place] [address] Performed By: #### 5 7021-8 ####[facility] LABORATORYCLIA [id number] [address] [place] Polychromasia LM Ql (Bld) Slight Normal [facility] Comment on above: Order Comment: Specimen Type: BLOOD SPEC IMENOrdering Facility: [facility] Address: [address] [place] [address] Performed By: #### 5 7021-8 ####[facility] LABORATORYCLIA [id number] [place] [address] [place] RBC (Bld) [#/Vol] 3.98 10*6/uL Normal 3.90-5.20 [facility] Comment on above: Order Comment: Specimen Type: BLOOD SPEC IMENOrdering Facility: [facility] Address: [address] [place] [address] Performed By: #### 5 7021-8 ####[facility] LABORATORYCLIA [id number] [address] [place] RED CELL MORPH Reviewed: see result s of individual morphologies Normal [facility] Comment on above: Order Comment: Specimen Type: BLOOD SPEC IMENOrdering Facility: [facility] Address: [address] [place] [address] Performed By: #### 5 7021-8 ####[facility] LABORATORYCLIA [id number] [address] [place] Target cells LM Ql (Bld) Few Normal [facility] Comment on above: Order Comment: Specimen Type: BLOOD SPEC IMENOrdering Facility: [facility] Address: [address] [place] [address] Performed By: #### 5 7021-8 ####[facility] LABORATORYCLIA [id number] [place] [id number] [facility] Variant lymphocytes/100 WBC (Bld) 1.0 % Normal [facility] Comment on above: Order Comment: Specimen Type: BLOOD SPEC IMENOrdering Facility: [facility] Address: [address] [place] [address] Performed By: #### 5 7021-8 ####[facility] LABORATORYCLIA [id number] [place] [id number] [facility] WBC (Bld) [#/Vol] 15.61 10*3/uL High 3.70-11.00 [facility] Comment on above: Order Comment: Specimen Type: BLOOD SPEC IMENOrdering Facility: [facility] Address: [address] [place] [address] Performed By: #### 5 7021-8 ####[facility] LABORATORYCLIA [id number] [place] [id number] [facility] CNDSon 08-11-2023 CNDS HNO ID: [id number] Author: JOE GRANDA MD Service: General Surgery [...] Needs: - follow up with JAYSHREE HUFFMAN HAND PROFILER as listed below Labs AND Procedures Pending [...] Your Medications These medications were sent to [facility] [address] [place] [address] Hours: Thursday-Thursday: 7am-7pm, Sat: 9am-1pm acetaminophen 500 mg tablet enoxaparin 60 mg/0.6 mL Syrg ondansetron orally disintegrating 4 mg disintegrating tablet oxyCODONE IR 5 mg immediate release tablet pantoprazole DR 40 mg tablet Appointments for Next 60 Days Date Time Provider Location Dept Phone 08/17/2023 10:00 AM JAYSHREE HUFFMAN [phone] 08/19/2023 11:45 AM ALEX MONSIVAIS [phone] 08/31/2023 9:45 AM RUPINDER COLBERT [facility] [phone] 08/31/2023 10:30 AM HCRISTOPHER SANTIAGO [facility] [phone] 09/07/2023 1:30 PM JAYSHREE HUFFMAN [phone] Highest Readmission Risk Score: 11 The 30 [...] Resulted Calcium (more content not included)... Normal [facility] Magnesium SerPl-mCncon 08-11 Magnesium [Mass/Vol] 2.0 mg/dL Normal 1.7-2.3 [facility] Comment on above: Order Comment: Specimen Type: BLOOD SPEC IMENOrdering Facility: [facility] Address: [address] [place] [address] Performed By: #### 1 9123-9, 2777-1, 28656-4 ####[facility] LABORATORYCLIA [id number] [place] [id number] [facility] [place] NURSING PROGon 08-11-2023 NURSING PROG HNO ID: [id number] Author: KIRA VANCE RN Service: ? Author [...] contact provider if anything changes occur. Normal [facility] Phosphate SerPl-mCncon 08-11 Phosphate [Mass/Vol] 4.3 mg/dL Normal 2.7-4.8 [facility] Comment on above: Order Comment: Specimen Type: BLOOD SPEC IMENOrdering Facility: [facility] Address: [address] [place] [address] Performed By: #### 1 9123-9, 2777-1, 40210-7 ####[facility] LABORATORYCLIA [id number] [place] [id number] [place] Basic metabolic 2000 panelon 08-10-2023 Anion gap [Moles/Vol] 12 mmol/L Normal 9-18 [facility] Comment on above: Order Comment: Specimen Type: BLOOD SPEC IMENOrdering Facility: [facility] Address: [address] [place] [address] Performed By: #### 1 9123-9, 34198-0, 2777-1 ####[facility] LABORATORYCLIA [id number] [place] [id number] [place] Calcium [Mass/Vol] 8.7 mg/dL Normal 8.5-10.2 [facility] Comment on above: Order Comment: Specimen Type: BLOOD SPEC IMENOrdering Facility: [facility] Address: [address] [place] [address] Performed By: #### 1 9123-9, 19680-0, 2776- ####[facility] LABORATORYCLIA [id number] [place] [id number] [place] Chloride [Moles/Vol] 104 mmol/L Normal 97-105 [facility] Comment on above: Order Comment: Specimen Type: BLOOD SPEC IMENOrdering Facility: [facility] Address: [address] [place] [address] Performed By: #### 1 9123-9, 43491-7, 2776-06 ####[facility] LABORATORYCLIA [id number] [place] [address] [place] CO2 [Moles/Vol] 24 mmol/L Normal 22-30 [facility] Comment on above: Order Comment: Specimen Type: BLOOD SPEC IMENOrdering Facility: [facility] Address: [address] [place] [address] Performed By: #### 1 9123-9, 25767-8, 2776-06 ####[facility] LABORATORYCLIA [id number] [place] [id number] [place] Creatinine [Mass/Vol] 0.65 mg/dL Normal 0.58-0.96 [facility] Comment on above: Order Comment: Specimen Type: BLOOD SPEC IMENOrdering Facility: [facility] Address: [address] [place] [address] Performed By: #### 1 9123-9, 24970-1, 2776-06 ####[facility] LABORATORYCLIA [id number] [place] [id number] [place] Creatinine and Glomerular filtration rate.predicted panel (S/P/Bld) 116 mL/min/1.73m??? Normal >=60 [facility] Comment on above: Order Comment: Specimen Type: BLOOD SPEC IMENOrdering Facility: [facility] Address: [address] [place] [address] Result Comment: Janet mated Glomerular Filtration Rate [...] actual GFR. Performed By: #### 1 9123-9, 07865-1, 2776- ####[facility] LABORATORYCLIA [id number] [place] [id number] [place] Glucose [Mass/Vol] 91 mg/dL Normal 74-99 [facility] Comment on above: Order Comment: Specimen Type: BLOOD SPEC IMENOrdering Facility: [facility] Address: [address] [place] [address] Result Comment: The [place] Diabetes Association (ADA) provides guidance for cutoff [...] Standards of Medical Care in Diabetes 2016, [place] [employer]. Diabetes Care. 2016.39(Suppl 1). Performed By: #### 1 9123-9, 45312-7, 2776-06 ####[facility] LABORATORYCLIA [id number] [place] [id number] [place] Potassium [Moles/Vol] 3.4 mmol/L Low 3.7-5.1 [facility] Comment on above: Order Comment: Specimen Type: BLOOD SPEC IMENOrdering Facility: [facility] Address: [address] [place] [address] Performed By: #### 1 9123-9, 98802-9, 2776- ####[facility] LABORATORYCLIA [id number] [place] [id number] [place] Sodium [Moles/Vol] 140 mmol/L Normal 136-144 [facility] Comment on above: Order Comment: Specimen Type: BLOOD SPEC IMENOrdering Facility: [facility] Address: [address] [place] [address] Performed By: #### 1 9123-9, 73166-0, 27712-27 ####[facility] LABORATORYCLIA [id number] [place] [address] [place] Urea nitrogen [Mass/Vol] 3 mg/dL Low 7-21 [facility] Comment on above: Order Comment: Specimen Type: BLOOD SPEC IMENOrdering Facility: [facility] Address: [address] [place] [address] Performed By: #### 1 9123-9, 55438-0, 2776-06 ####[facility] LABORATORYCLIA [id number] [place] [address] [place] CBC W Auto Differential pane l (Bld)on 08-10-2023 Basophils (Bld) [#/Vol] 0.08 10*3/uL Normal <0.11 [facility] Comment on above: Order Comment: Specimen Type: BLOOD SPEC IMENOrdering Facility: [facility] Address: [address] [place] [address] Performed By: #### 5 7021-8 ####[facility] LABORATORYCLIA [id number] [address] [place] Basophils/100 WBC (Bld) 0.6 % Normal [facility] Comment on above: Order Comment: Specimen Type: BLOOD SPEC IMENOrdering Facility: [facility] Address: [address] [place] [address] Performed By: #### 5 7021-8 ####[facility] LABORATORYCLIA [id number] [address] [place] Differential cell count method Nom (Bld) Auto Normal [facility] Comment on above: Order Comment: Specimen Type: BLOOD SPEC IMENOrdering Facility: [facility] Address: [address] [place] [address] Performed By: #### 5 7021-8 ####[facility] LABORATORYCLIA [id number] [place] [address] [place] Eosinophils (Bld) [#/Vol] 0.78 10*3/uL High <0.46 [facility] Comment on above: Order Comment: Specimen Type: BLOOD SPEC IMENOrdering Facility: [facility] Address: [address] [place] [address] Performed By: #### 5 7021-8 ####[facility] LABORATORYCLIA [id number] [address] [place] Eosinophils/100 WBC (Bld) 5.6 % Normal [facility] Comment on above: Order Comment: Specimen Type: BLOOD SPEC IMENOrdering Facility: [facility] Address: [address] [place] [address] Performed By: #### 5 7021-8 ####[facility] LABORATORYCLIA [id number] [address] [place] Erythrocyte distribution width (RBC) [Ratio] 14.7 % Normal 11.5-15.0 [facility] Comment on above: Order Comment: Specimen Type: BLOOD SPEC IMENOrdering Facility: [facility] Address: [address] [place] [address] Performed By: #### 5 7021-8 ####[facility] LABORATORYCLIA [id number] [place] [address] [place] Hematocrit (Bld) [Volume fraction] 36.9 % Normal 36.0-46.0 [facility] Comment on above: Order Comment: Specimen Type: BLOOD SPEC IMENOrdering Facility: [facility] Address: [address] [place] [address] Performed By: #### 5 7021-8 ####[facility] LABORATORYCLIA [id number] [place] [address] [place] Hemoglobin (Bld) [Mass/Vol] 11.6 g/dL Normal 11.5-15.5 [facility] Comment on above: Order Comment: Specimen Type: BLOOD SPEC IMENOrdering Facility: [facility] Address: [address] [place] [address] Performed By: #### 5 7021-8 ####[facility] LABORATORYCLIA [id number] [place] [id number] [place] Immature granulocytes (Bld) [#/Vol] 0.11 10*3/uL High <0.10 [facility] Comment on above: Order Comment: Specimen Type: BLOOD SPEC IMENOrdering Facility: [facility] Address: [address] [place] [address] Performed By: #### 5 7021-8 ####[facility] LABORATORYCLIA [id number] [address] Immature granulocytes/100 WBC (Bld) 0.8 % Normal [facility] Comment on above: Order Comment: Specimen Type: BLOOD SPEC IMENOrdering Facility: [facility] Address: [address] [place] [address] Performed By: #### 5 7021-8 ####[facility] LABORATORYCLIA [id number] [place] [id number] [place] Lymphocytes (Bld) [#/Vol] 4.03 10*3/uL High 1.00-4.00 [facility] Comment on above: Order Comment: Specimen Type: BLOOD SPEC IMENOrdering Facility: [facility] Address: [address] [place] [address] Performed By: #### 5 7021-8 ####[facility] LABORATORYCLIA [id number] [place] [id number] [place] Lymphocytes/100 WBC (Bld) 28.8 % Normal [facility] Comment on above: Order Comment: Specimen Type: BLOOD SPEC IMENOrdering Facility: [facility] Address: [address] [place] [address] Performed By: #### 5 7021-8 ####[facility] LABORATORYCLIA [id number] [place] [id number] [place] MCH (RBC) [Entitic mass] 29.2 pg Normal 26.0-34.0 [facility] Comment on above: Order Comment: Specimen Type: BLOOD SPEC IMENOrdering Facility: [facility] Address: [facility] [place] [address] Performed By: #### 5 7021-8 ####[facility] LABORATORYCLIA [id number] [place] [address] [place] MCHC (RBC) [Mass/Vol] 31.4 g/dL Normal 30.5-36.0 [facility] Comment on above: Order Comment: Specimen Type: BLOOD SPEC IMENOrdering Facility: [facility] Address: [address] [place] [address] Performed By: #### 5 7021-8 ####[facility] LABORATORYCLIA [id number] [address] [place] MCV (RBC) [Entitic vol] 92.9 fL Normal 80.0-100.0 [facility] Comment on above: Order Comment: Specimen Type: BLOOD SPEC IMENOrdering Facility: [facility] Address: [address] [place] [address] Performed By: #### 5 7021-8 ####[facility] LABORATORYCLIA [id number] [place] [address] [place] Monocytes (Bld) [#/Vol] 1.33 10*3/uL High <0.87 [facility] Comment on above: Order Comment: Specimen Type: BLOOD SPEC IMENOrdering Facility: [facility] Address: [address] [place] [address] Performed By: #### 5 7021-8 ####[facility] LABORATORYCLIA [id number] [address] [place] Monocytes/100 WBC (Bld) 9.5 % Normal [facility] Comment on above: Order Comment: Specimen Type: BLOOD SPEC IMENOrdering Facility: [facility] Address: [address] [place] [address] Performed By: #### 5 7021-8 ####[facility] LABORATORYCLIA [id number] [place] [address] [place] Neutrophils (Bld) [#/Vol] 7.66 10*3/uL High 1.45-7.50 [facility] Comment on above: Order Comment: Specimen Type: BLOOD SPEC IMENOrdering Facility: [facility] Address: [address] [place] [address] Performed By: #### 5 7021-8 ####[facility] LABORATORYCLIA [id number] [place] [id number] [place] Neutrophils/100 WBC (Bld) 54.7 % Normal [facility] Comment on above: Order Comment: Specimen Type: BLOOD SPEC IMENOrdering Facility: [facility] Address: [address] [place] [address] Performed By: #### 5 7021-8 ####[facility] LABORATORYCLIA [id number] [place] [address] [place] Nucleated RBC (Bld) [#/Vol] 0.03 10*3/uL High <0.01 [facility] Comment on above: Order Comment: Specimen Type: BLOOD SPEC IMENOrdering Facility: [facility] Address: [address] [place] [address] Performed By: #### 5 7021-8 ####[facility] LABORATORYCLIA [id number] [place] [address] [place] Nucleated RBC/100 WBC (Bld) [Ratio] 0.2 /100 WBC Normal [facility] Comment on above: Order Comment: Specimen Type: BLOOD SPEC IMENOrdering Facility: [facility] Address: [address] [place] [address] Performed By: #### 5 7021-8 ####[facility] LABORATORYCLIA [id number] [place] [id number] [place] Platelet mean volume (Bld) [Entitic vol] 9.9 fL Normal 9.0-12.7 [facility] Comment on above: Order Comment: Specimen Type: BLOOD SPEC IMENOrdering Facility: [facility] Address: [address] [place] [address] Performed By: #### 5 7021-8 ####[facility] LABORATORYCLIA [id number] [place] [id number] [place] Platelets (Bld) [#/Vol] 557 10*3/uL High 150-400 [facility] Comment on above: Order Comment: Specimen Type: BLOOD SPEC IMENOrdering Facility: [facility] Address: [address] [place] [address] Performed By: #### 5 7021-8 ####[facility] LABORATORYCLIA [id number] [place] [id number] [place] RBC (Bld) [#/Vol] 3.97 10*6/uL Normal 3.90-5.20 [facility] Comment on above: Order Comment: Specimen Type: BLOOD SPEC IMENOrdering Facility: [facility] Address: [address] [place] [address] Performed By: #### 5 7021-8 ####[facility] LABORATORYCLIA [id number] [place] [id number] [place] [facility] WBC (Bld) [#/Vol] 13.99 10*3/uL High 3.70-11.00 [facility] Comment on above: Order Comment: Specimen Type: BLOOD SPEC IMENOrdering Facility: [facility] Address: [address] [place] [address] Performed By: #### 5 7021-8 ####[facility] LABORATORYCLIA [id number] [place] [id number] [facility] [place] Magnesium SerPl-mCncon 08-10 Magnesium [Mass/Vol] 1.8 mg/dL Normal 1.7-2.3 [facility] Comment on above: Order Comment: Specimen Type: BLOOD SPEC IMENOrdering Facility: [facility] Address: [address] [place] [address] Performed By: #### 1 9123-9, 07649-0, 2777-1 ####[facility] LABORATORYCLIA [id number] [place] [id number] [place] NURSING PROGon 08-10-2023 NURSING PROG HNO ID: [id number] Author: SUDHA WELCH, SUSAN Service: ? Author [...] possible home today, continue to monitor. Normal [facility] Phosphate SerPl-mCncon 08-10 Phosphate [Mass/Vol] 4.2 mg/dL Normal 2.7-4.8 [facility] Comment on above: Order Comment: Specimen Type: BLOOD SPEC IMENOrdering Facility: [facility] Address: [address] [place] [address] Performed By: #### 1 9123-9, 48275-8, 2777-1 ####[facility] LABORATORYCLIA [id number] [place] [id number] [place] Basic metabolic 2000 panelon 08-09-2023 Anion gap [Moles/Vol] 12 mmol/L Normal 9-18 [facility] Comment on above: Order Comment: Specimen Type: BLOOD SPEC IMENOrdering Facility: [facility] Address: [address] [place] [address] Performed By: #### 2 777-1, , ####[facility] LABORATORYCLIA [id number] [place] [id number] [place] Calcium [Mass/Vol] 8.3 mg/dL Low 8.5-10.2 [facility] Comment on above: Order Comment: Specimen Type: BLOOD SPEC IMENOrdering Facility: [facility] Address: [address] [place] [address] Performed By: #### 2 777-1, , ####[facility] LABORATORYCLIA [id number] [place] [id number] [place] Chloride [Moles/Vol] 103 mmol/L Normal 97-105 [facility] Comment on above: Order Comment: Specimen Type: BLOOD SPEC IMENOrdering Facility: [facility] Address: [address] [place] [id number] Performed By: #### 2 777-1, , ####[facility] LABORATORYCLIA [id number] [place] [id number] [place] [facility] CO2 [Moles/Vol] 22 mmol/L Normal 22-30 [facility] Comment on above: Order Comment: Specimen Type: BLOOD SPEC IMENOrdering Facility: [facility] Address: [address] [place] [address] Performed By: #### 2 777-1, , ####[facility] LABORATORYCLIA [id number] [place] [id number] [facility] Creatinine [Mass/Vol] 0.59 mg/dL Normal 0.58-0.96 [facility] Comment on above: Order Comment: Specimen Type: BLOOD SPEC IMENOrdering Facility: [facility] Address: [address] [place] [address] Performed By: #### 2 777-1, , ####[facility] LABORATORYCLIA [id number] [place] [id number] [facility] Creatinine and Glomerular filtration rate.predicted panel (S/P/Bld) 118 mL/min/1.73m??? Normal >=60 [facility] Comment on above: Order Comment: Specimen Type: BLOOD SPEC IMENOrdering Facility: [facility] Address: [address] [place] [address] Result Comment: Janet mated Glomerular Filtration Rate [...] GFR. Performed By: #### 2 777-1, , 05189-2 ####[facility] LABORATORYCLIA [id number] [place] [id number] [place] Glucose [Mass/Vol] 98 mg/dL Normal 74-99 [facility] Comment on above: Order Comment: Specimen Type: BLOOD SPEC IMENOrdering Facility: [facility] Address: [address] [place] [address] Result Comment: The [place] Diabetes Association (ADA) provides guidance for cutoff [...] Standards of Medical Care in Diabetes 2016, [place] [employer]. Diabetes Care. 2016.39(Suppl 1). Performed By: #### 2 777-1, , ####[facility] LABORATORYCLIA [id number] [place] [address] [place] Potassium [Moles/Vol] 3.5 mmol/L Low 3.7-5.1 [facility] Comment on above: Order Comment: Specimen Type: BLOOD SPEC IMENOrdering Facility: [facility] Address: [address] [place] [address] Performed By: #### 2 777-1, , ####[facility] LABORATORYCLIA [id number] [place] [id number] [place] Sodium [Moles/Vol] 137 mmol/L Normal 136-144 [facility] Comment on above: Order Comment: Specimen Type: BLOOD SPEC IMENOrdering Facility: [facility] Address: [address] [place] [address] Performed By: #### 2 777-1, , ####[facility] LABORATORYCLIA [id number] [place] [id number] [place] Urea nitrogen [Mass/Vol] 3 mg/dL Low 7-21 [facility] Comment on above: Order Comment: Specimen Type: BLOOD SPEC IMENOrdering Facility: [facility] Address: [address] [place] [address] Performed By: #### 2 777-1, 70028-2, 62052-7 ####[facility] LABORATORYCLIA [id number] [place] [address] [place] CBC W Auto Differential pane l (Bld)on 08-09-2023 Basophils (Bld) [#/Vol] 0.08 10*3/uL Normal <0.11 [facility] Comment on above: Order Comment: Specimen Type: BLOOD SPEC IMENOrdering Facility: [facility] Address: [address] [place] [address] Performed By: #### 5 7021-8 ####[facility] LABORATORYCLIA [id number] [place] [address] [place] Basophils/100 WBC (Bld) 0.6 % Normal [facility] Comment on above: Order Comment: Specimen Type: BLOOD SPEC IMENOrdering Facility: [facility] Address: [address] [place] [address] Performed By: #### 5 7021-8 ####[facility] LABORATORYCLIA [id number] [place] [address] [place] Differential cell count method Nom (Bld) Auto Normal [facility] Comment on above: Order Comment: Specimen Type: BLOOD SPEC IMENOrdering Facility: [facility] Address: [address] [place] [address] Performed By: #### 5 7021-8 ####[facility] LABORATORYCLIA [id number] [place] [id number] [place] Eosinophils (Bld) [#/Vol] 0.78 10*3/uL High <0.46 [facility] Comment on above: Order Comment: Specimen Type: BLOOD SPEC IMENOrdering Facility: [facility] Address: [address] [place] [address] Performed By: #### 5 7021-8 ####[facility] LABORATORYCLIA [id number] [place] [address] [place] Eosinophils/100 WBC (Bld) 5.4 % Normal [facility] Comment on above: Order Comment: Specimen Type: BLOOD SPEC IMENOrdering Facility: [facility] Address: [address] [place] [address] Performed By: #### 5 7021-8 ####[facility] LABORATORYCLIA [id number] [place] [address] [place] Erythrocyte distribution width (RBC) [Ratio] 14.6 % Normal 11.5-15.0 [facility] Comment on above: Order Comment: Specimen Type: BLOOD SPEC IMENOrdering Facility: [facility] Address: [address] [place] [address] Performed By: #### 5 7021-8 ####GEORGE LABORATORYCLIA [id number] [place] [address] [place] Hematocrit (Bld) [Volume fraction] 37.6 % Normal 36.0-46.0 [facility] Comment on above: Order Comment: Specimen Type: BLOOD SPEC IMENOrdering Facility: [facility] [facility] Address: [address] [place] [address] Performed By: #### 5 7021-8 ####GEORGE LABORATORYCLIA [id number] [place] [address] [place] Hemoglobin (Bld) [Mass/Vol] 11.9 g/dL Normal 11.5-15.5 [facility] Comment on above: Order Comment: Specimen Type: BLOOD SPEC IMENOrdering Facility: [facility] Address: [address] [place] [address] Performed By: #### 5 7021-8 ####GEORGE LABORATORYCLIA [id number] [place] [address] [place] Immature granulocytes (Bld) [#/Vol] 0.08 10*3/uL Normal <0.10 [facility] Comment on above: Order Comment: Specimen Type: BLOOD SPEC IMENOrdering Facility: [facility] Address: [address] [place] [address] Performed By: #### 5 7021-8 ####GEORGE LABORATORYCLIA [id number] [place] [id number] [place] Immature granulocytes/100 WBC (Bld) 0.6 % Normal [facility] Comment on above: Order Comment: Specimen Type: BLOOD SPEC IMENOrdering Facility: [facility] Address: [address] [place] [address] Performed By: #### 5 7021-8 ####GEORGE LABORATORYCLIA [id number] [place] [address] [place] Lymphocytes (Bld) [#/Vol] 3.71 10*3/uL Normal 1.00-4.00 [facility] Comment on above: Order Comment: Specimen Type: BLOOD SPEC IMENOrdering Facility: [facility] Address: [address] [place] [address] Performed By: #### 5 7021-8 ####GEORGE LABORATORYCLIA [id number] [place] [address] [place] Lymphocytes/100 WBC (Bld) 25.7 % Normal [facility] Comment on above: Order Comment: Specimen Type: BLOOD SPEC IMENOrdering Facility: [facility] Address: [address] [place] [address] Performed By: #### 5 7021-8 ####GEORGE LABORATORYCLIA [id number] [address] [place] MCH (RBC) [Entitic mass] 29.5 pg Normal 26.0-34.0 [facility] Comment on above: Order Comment: Specimen Type: BLOOD SPEC IMENOrdering Facility: [facility] Address: [address] [place] [address] Performed By: #### 5 7021-8 ####[facility] LABORATORYCLIA [id number] [address] [place] MCHC (RBC) [Mass/Vol] 31.6 g/dL Normal 30.5-36.0 [facility] Comment on above: Order Comment: Specimen Type: BLOOD SPEC IMENOrdering Facility: [facility] Address: [address] [place], [place] [address] Performed By: #### 5 7021-8 ####[facility] LABORATORYCLIA [id number] [place] [id number] [place] MCV (RBC) [Entitic vol] 93.1 fL Normal 80.0-100.0 [facility] Comment on above: Order Comment: Specimen Type: BLOOD SPEC IMENOrdering Facility: [facility] Address: [address] [place] [address] Performed By: #### 5 7021-8 ####[facility] LABORATORYCLIA [id number] [place] [id number] [place] Monocytes (Bld) [#/Vol] 1.36 10*3/uL High <0.87 [facility] Comment on above: Order Comment: Specimen Type: BLOOD SPEC IMENOrdering Facility: [facility] Address: [address] [place] [address] Performed By: #### 5 7021-8 ####[facility] LABORATORYCLIA [id number] [place] [id number] [place] Monocytes/100 WBC (Bld) 9.4 % Normal [facility] Comment on above: Order Comment: Specimen Type: BLOOD SPEC IMENOrdering Facility: [facility] Address: [address] [place] [address] Performed By: #### 5 7021-8 ####[facility] LABORATORYCLIA [id number] [place] [id number] [place] Neutrophils (Bld) [#/Vol] 8.44 10*3/uL High 1.45-7.50 [facility] Comment on above: Order Comment: Specimen Type: BLOOD SPEC IMENOrdering Facility: [facility] Address: [address] [place] [address] Performed By: #### 5 7021-8 ####[facility] LABORATORYCLIA [id number] [place] [id number] [place] Neutrophils/100 WBC (Bld) 58.3 % Normal [facility] Comment on above: Order Comment: Specimen Type: BLOOD SPEC IMENOrdering Facility: [facility] Address: [address] [place] [address] Performed By: #### 5 7021-8 ####[facility] LABORATORYCLIA [id number] [place] [id number] [place] Nucleated RBC (Bld) [#/Vol] 0.03 10*3/uL High <0.01 [facility] Comment on above: Order Comment: Specimen Type: BLOOD SPEC IMENOrdering Facility: [facility] Address: [address] [place] [address] Performed By: #### 5 7021-8 ####[facility] LABORATORYCLIA [id number] [place] [id number] [place] Nucleated RBC/100 WBC (Bld) [Ratio] 0.2 /100 WBC Normal [facility] Comment on above: Order Comment: Specimen Type: BLOOD SPEC IMENOrdering Facility: [facility] Address: [address] [place] [address] Performed By: #### 5 7021-8 ####[facility] LABORATORYCLIA [id number] [place] [address] [place] Platelet mean volume (Bld) [Entitic vol] 9.5 fL Normal 9.0-12.7 [facility] Comment on above: Order Comment: Specimen Type: BLOOD SPEC IMENOrdering Facility: [facility] Address: [address] [place] [address] Performed By: #### 5 7021-8 ####[facility]ON LABORATORYCLIA [id number] [place] [id number] [place] Platelets (Bld) [#/Vol] 499 10*3/uL High 150-400 [facility] Comment on above: Order Comment: Specimen Type: BLOOD SPEC IMENOrdering Facility: [facility] Address: [address] [place] [address] Performed By: #### 5 7021-8 ####[facility]ON LABORATORYCLIA [id number] [place] [id number] [place] RBC (Bld) [#/Vol] 4.04 10*6/uL Normal 3.90-5.20 [facility] Comment on above: Order Comment: Specimen Type: BLOOD SPEC IMENOrdering Facility: [facility] Address: [address] [place] [id number] Performed By: #### 5 7021-8 ####[facility] LABORATORYCLIA [id number] [address] [place] WBC (Bld) [#/Vol] 14.45 10*3/uL High 3.70-11.00 [facility] Comment on above: Order Comment: Specimen Type: BLOOD SPEC IMENOrdering Facility: [facility] Address: [address] [place] [address] Performed By: #### 5 7021-8 ####[facility]ON LABORATORYCLIA [id number] [address] CONSULT PROGon 08-09-2023 CONSULT PROG HNO ID: [id number] Author: BUCKY FLORES APRN.MEDICAL SCRIBE Service: Pain Management Author Type: Nurse Practitioner [...] Please call with questions. SIGNATURE: Bucky Flores APRN.MEDICAL SCRIBE PAGER:[phone] DATE of SERVICE: August 09, 2023 TIME of SERVICE: 2:20 PM Normal [facility] Magnesium [facility] 08-09 Magnesium [Mass/Vol] 1.8 mg/dL Normal 1.7-2.3 [facility] Comment on above: Order Comment: Specimen Type: BLOOD SPEC IMENOrdering Facility: [facility] Address: [address] [place] [address] Performed By: #### 2 777-1, , ####GEORGE LABORATORYCLIA [id number] [address] [place] NURSING PROGon 08-09-2023 NURSING PROG HNO ID: [id number] Author: KIRA VANCE RN Service: ? Author [...] LIP. Pt is ambulating in hallway. Normal [facility] Phosphate [Mass/Vol] 3.2 mg/dL Normal 2.7-4.8 [facility] Comment on above: Order Comment: Specimen Type: BLOOD SPEC IMENOrdering Facility: [facility] Address: [address] [place] [address] Performed By: #### 2 777-1, , ####GEORGE LABORATORYCLIA [id number] [place] [id number] [place] Basic metabolic 2000 panelon 08-08-2023 Anion gap [Moles/Vol] 12 mmol/L Normal 9-18 [facility] Comment on above: Order Comment: Specimen Type: BLOOD SPEC IMENOrdering Facility: [facility] Address: [address] [place] [address] Performed By: #### 2 777-1, , ####GEORGE LABORATORYCLIA [id number] [place] [address] [place] Calcium [Mass/Vol] 8.6 mg/dL Normal 8.5-10.2 [facility] Comment on above: Order Comment: Specimen Type: BLOOD SPEC IMENOrdering Facility: [facility] Address: [place] [address] Performed By: #### 2 777-1, , ####GEORGE LABORATORYCLIA [id number] [place] [address] [place] Chloride [Moles/Vol] 105 mmol/L Normal 97-105 [facility] Comment on above: Order Comment: Specimen Type: BLOOD SPEC IMENOrdering Facility: [facility] Address: [place] [address] Performed By: #### 2 777-1, , ####GEORGE LABORATORYCLIA [id number] [place] [id number] [place] CO2 [Moles/Vol] 21 mmol/L Low 22-30 [facility] Comment on above: Order Comment: Specimen Type: BLOOD SPEC IMENOrdering Facility: [facility] Address: [address] [place] [address] Performed By: #### 2 777-1, , ####GEORGE LABORATORYCLIA [id number] [place] [id number] [place] Creatinine [Mass/Vol] 0.58 mg/dL Normal 0.58-0.96 [facility] Comment on above: Order Comment: Specimen Type: BLOOD SPEC IMENOrdering Facility: [facility] Address: [address] [place] [address] Performed By: #### 2 777-1, , 39963-1 ####[facility] LABORATORYCLIA [id number] [place] [id number] [place] Creatinine and Glomerular filtration rate.predicted panel (S/P/Bld) 119 mL/min/1.73m??? Normal >=60 [facility] Comment on above: Order Comment: Specimen Type: BLOOD SPEC IMENOrdering Facility: [facility] Address: [address] [place] [address] Result Comment: Janet mated Glomerular Filtration Rate [...] GFR. Performed By: #### 2 777-1, , 83303-2 ####[facility] LABORATORYCLIA [id number] [place] [id number] [place] Glucose [Mass/Vol] 97 mg/dL Normal 74-99 [facility] Comment on above: Order Comment: Specimen Type: BLOOD SPEC IMENOrdering Facility: [facility] Address: [address] [place] [address] Result Comment: The [place] Diabetes Association (ADA) provides guidance for cutoff [...] Standards of Medical Care in Diabetes 2016, [place] [employer] Association. Diabetes Care. 2016.39(Suppl 1). Performed By: #### 2 777-1, , 26913-8 ####[facility] LABORATORYCLIA [id number] [place] [address] [place] Potassium [Moles/Vol] 3.9 mmol/L Normal 3.7-5.1 [facility] Comment on above: Order Comment: Specimen Type: BLOOD SPEC IMENOrdering Facility: [facility] Address: [address] [place] [address] Performed By: #### 2 777-1, , 30586-9 ####GEORGE LABORATORYCLIA [id number] [place] [id number] [place] Sodium [Moles/Vol] 138 mmol/L Normal 136-144 [facility] Comment on above: Order Comment: Specimen Type: BLOOD SPEC IMENOrdering Facility: [facility] Address: [address] [place] [address] Performed By: #### 2 777-1, , ####GEORGE LABORATORYCLIA [id number] [place] [id number] [place] Urea nitrogen [Mass/Vol] 3 mg/dL Low 7-21 [facility] Comment on above: Order Comment: Specimen Type: BLOOD SPEC IMENOrdering Facility: [facility] Address: [address] [place] [address] Performed By: #### 2 777-1, , ####GEORGE LABORATORYCLIA [id number] [place] [id number] [place] CBC W Auto Differential pane l (Bld)on 08-08-2023 Basophils (Bld) [#/Vol] 0.08 10*3/uL Normal <0.11 [facility] Comment on above: Order Comment: Specimen Type: BLOOD SPEC IMENOrdering Facility: [facility] Address: [address] [place] [address] Performed By: #### 5 7021-8 ####HUDSON LABORATORYCLIA [id number] [place] [address] [place] Basophils/100 WBC (Bld) 0.5 % Normal [facility] Comment on above: Order Comment: Specimen Type: BLOOD SPEC IMENOrdering Facility: [facility] Address: [address] [place] [address] Performed By: #### 5 7021-8 ####[facility] LABORATORYCLIA [id number] [place] [id number] [place] Differential cell count method Nom (Bld) Auto Normal [facility] Comment on above: Order Comment: Specimen Type: BLOOD SPEC IMENOrdering Facility: [facility] Address: [address] [place] [address] Performed By: #### 5 7021-8 ####[facility] LABORATORYCLIA [id number] [place] [address] [place] Eosinophils (Bld) [#/Vol] 0.70 10*3/uL High <0.46 [facility] Comment on above: Order Comment: Specimen Type: BLOOD SPEC IMENOrdering Facility: [facility] Address: [address] [place] [address] Performed By: #### 5 7021-8 ####[facility] LABORATORYCLIA [id number] [place] [address] [place] Eosinophils/100 WBC (Bld) 4.7 % Normal [facility] Comment on above: Order Comment: Specimen Type: BLOOD SPEC IMENOrdering Facility: [facility] Address: [address] [place] [address] Performed By: #### 5 7021-8 ####GEORGE LABORATORYCLIA [id number] [place] [id number] [place] Erythrocyte distribution width (RBC) [Ratio] 14.2 % Normal 11.5-15.0 [facility] Comment on above: Order Comment: Specimen Type: BLOOD SPEC IMENOrdering Facility: [facility] Address: [address] [place] [address] Performed By: #### 5 7021-8 ####[facility] LABORATORYCLIA [id number] [place] [id number] [place] Hematocrit (Bld) [Volume fraction] 35.7 % Low 36.0-46.0 [facility] Comment on above: Order Comment: Specimen Type: BLOOD SPEC IMENOrdering Facility: [facility] Address: [address] [place] [address] Performed By: #### 5 7021-8 ####GEORGE LABORATORYCLIA [id number] [place] [id number] [place] Hemoglobin (Bld) [Mass/Vol] 11.4 g/dL Low 11.5-15.5 [facility] Comment on above: Order Comment: Specimen Type: BLOOD SPEC IMENOrdering Facility: [facility] Address: [address] [place] [address] Performed By: #### 5 7021-8 ####GEORGE LABORATORYCLIA [id number] [place] [id number] [place] Immature granulocytes (Bld) [#/Vol] 0.06 10*3/uL Normal <0.10 [facility] Comment on above: Order Comment: Specimen Type: BLOOD SPEC IMENOrdering Facility: [facility] Address: [address] [place] [address] Performed By: #### 5 7021-8 ####GEORGE LABORATORYCLIA [id number] [place] [id number] [place] Immature granulocytes/100 WBC (Bld) 0.4 % Normal [facility] Comment on above: Order Comment: Specimen Type: BLOOD SPEC IMENOrdering Facility: [facility] Address: [address] [place] [address] Performed By: #### 5 7021-8 ####GEORGE LABORATORYCLIA [id number] [place] [id number] [place] Lymphocytes (Bld) [#/Vol] 3.44 10*3/uL Normal 1.00-4.00 [facility] Comment on above: Order Comment: Specimen Type: BLOOD SPEC IMENOrdering Facility: [facility] Address: [address] [place] [address] Performed By: #### 5 7021-8 ####GEORGE LABORATORYCLIA [id number] [place] [id number] [place] Lymphocytes/100 WBC (Bld) 22.9 % Normal [facility] Comment on above: Order Comment: Specimen Type: BLOOD SPEC IMENOrdering Facility: [facility] Address: [address] [place] [address] Performed By: #### 5 7021-8 ####[facility] LABORATORYCLIA [id number] [address] [place] [facility] MCH (RBC) [Entitic mass] 29.6 pg Normal 26.0-34.0 [facility] Comment on above: Order Comment: Specimen Type: BLOOD SPEC IMENOrdering Facility: [facility] Address: [address] [place] [address] Performed By: #### 5 7021-8 ####[facility] LABORATORYCLIA [id number] [address] MCHC (RBC) [Mass/Vol] 31.9 g/dL Normal 30.5-36.0 [facility] Comment on above: Order Comment: Specimen Type: BLOOD SPEC IMENOrdering Facility: [facility] Address: [address] [place] [address] Performed By: #### 5 7021-8 ####[facility] LABORATORYCLIA [id number] [address] MCV (RBC) [Entitic vol] 92.7 fL Normal 80.0-100.0 [facility] Comment on above: Order Comment: Specimen Type: BLOOD SPEC IMENOrdering Facility: [facility] Address: [address] [place] [address] Performed By: #### 5 7021-8 ####[facility]ON LABORATORYCLIA [id number] [address] [place] Monocytes (Bld) [#/Vol] 1.42 10*3/uL High <0.87 [facility] Comment on above: Order Comment: Specimen Type: BLOOD SPEC IMENOrdering Facility: [facility] Address: [address] [place] [address] Performed By: #### 5 7021-8 ####[facility] LABORATORYCLIA [id number] [place] [address] [place] Monocytes/100 WBC (Bld) 9.4 % Normal [facility] Comment on above: Order Comment: Specimen Type: BLOOD SPEC IMENOrdering Facility: [facility] Address: [address] [place] [address] Performed By: #### 5 7021-8 ####[facility] LABORATORYCLIA [id number] [place] [id number] [place] Neutrophils (Bld) [#/Vol] 9.33 10*3/uL High 1.45-7.50 [facility] Comment on above: Order Comment: Specimen Type: BLOOD SPEC IMENOrdering Facility: [facility] Address: [address] [place] [address] Performed By: #### 5 7021-8 ####[facility] LABORATORYCLIA [id number] [place] [address] [place] Neutrophils/100 WBC (Bld) 62.1 % Normal [facility] Comment on above: Order Comment: Specimen Type: BLOOD SPEC IMENOrdering Facility: [facility] Address: [address] [place] [address] Performed By: #### 5 7021-8 ####GEORGE LABORATORYCLIA [id number] [place] [id number] [place] Nucleated RBC (Bld) [#/Vol] 10*3/uL Normal <0.01 [facility] Comment on above: Order Comment: Specimen Type: BLOOD SPEC IMENOrdering Facility: [facility] Address: [address] [place] [address] Performed By: #### 5 7021-8 ####[facility] LABORATORYCLIA [id number] [place] [id number] [place] Nucleated RBC/100 WBC (Bld) [Ratio] 0.0 /100 WBC Normal [facility] Comment on above: Order Comment: Specimen Type: BLOOD SPEC IMENOrdering Facility: [facility] Address: [address] [place] [address] Performed By: #### 5 7021-8 ####GEORGE LABORATORYCLIA [id number] [place] [id number] [place] Platelet mean volume (Bld) [Entitic vol] 9.8 fL Normal 9.0-12.7 [facility] Comment on above: Order Comment: Specimen Type: BLOOD SPEC IMENOrdering Facility: [facility] Address: [address] [place] [address] Performed By: #### 5 7021-8 ####[facility] LABORATORYCLIA [id number] [place] [id number] [place] Platelets (Bld) [#/Vol] 457 10*3/uL High 150-400 [facility] Comment on above: Order Comment: Specimen Type: BLOOD SPEC IMENOrdering Facility: [facility] Address: [address] [place] [address] Performed By: #### 5 7021-8 ####[facility] LABORATORYCLIA [id number] [place] [address] [place] RBC (Bld) [#/Vol] 3.85 10*6/uL Low 3.90-5.20 [facility] Comment on above: Order Comment: Specimen Type: BLOOD SPEC IMENOrdering Facility: [facility] Address: [address] [place] [address] Performed By: #### 5 7021-8 ####[facility] LABORATORYCLIA [id number] [place] [id number] [place] WBC (Bld) [#/Vol] 15.03 10*3/uL High 3.70-11.00 [facility] Comment on above: Order Comment: Specimen Type: BLOOD SPEC IMENOrdering Facility: [facility] Address: [address] [place] [address] Performed By: #### 5 7021-8 ####[facility] LABORATORYCLIA [id number] [place] [id number] [facility] CONSULT PROGon 08-08-2023 CONSULT PROG HNO ID: [id number] Author: AUGUSTUS HERRERA PA-C Service: Pain Management Author Type: Physician [place] Expert Type: Consult Progress Note Filed: 08/08/2023 10:26 [...] PERTINENT ROS: ALLERGIES ALLERGIES Allergen Reactions Adhes. Nbtb-Hgmx-Cv* Rash Adhesive Tape-Silic* Rash Augmentin [Amoxicil* Diarrhea [...] Day of surgery MEDICATIONS: Epidural Medications and SOCIAL INSURANCE ANALYST Settings Bupivacaine 0.0625% + Fentanyl 2 mcg/mL Basal rate: 8 mL/hr. Patient Demand Bolus: 4 mL. Lockout interval: 15 minutes. Patient received 6/ doses in the last 4 hours. Additional medication(s) given: See below Anticoagulation therapy: Heparin 5000 units TID Last Dose given: 08/08 536 Allergy: ALLERGIES Allergen Reactions Adhes. Efcm-Qldr-Xd* Rash Adhesive Tape-Silic* Rash Augmentin [Amoxicil* Diarrhea [...] (CYMBALTA) 60 mg ORAL DAILY phenol 1 [place] (CHLORASEPTIC) 1 [place] MUCOUS MEMBRANE (TOPICAL MOUTH AND THROAT) q 2 H PRN cetirizine 10 mg tab(s) (ZYRTEC) 10 mg ORAL DAILY acetaminophen 1,000 mg tab(s) (TYLENOL) 1,000 mg ORAL q 6 H fentaNYL 50 mcg/mL 25 mcg injection (SUBLI (more content not included)... Normal [facility] Magnesium [Mass/Vol] 1.8 mg/dL Normal 1.7-2.3 [facility] Comment on above: Order Comment: Specimen Type: BLOOD SPEC IMENOrdering Facility: [facility] Address: [address] [place] [address] Performed By: #### 2 777-1, , 51687-0 ####[facility] LABORATORYCLIA [id number] [place] [id number] [facility] NURSING PROGon 08-08-2023 NURSING PROG HNO ID: [id number] Author: KIRA VANCE RN Service: ? Author Type: Registered Nurse Type: Nursing Progress Note Filed: 08/08/2023 09:15 Note Text: Nursing Progress Note: Pt AANDO x 3. Abdomen is soft and tender. Upper transverse incision open to air with glue. Epidural infusing per MAR. Lungs diminished on RA. SR on tele. Pt up with 1 assist. Pt tolerating phase II bariatric diet. Normal [facility] Phosphate [Mass/Vol] 3.2 mg/dL Normal 2.7-4.8 [facility] Comment on above: Order Comment: Specimen Type: BLOOD SPEC IMENOrdering Facility: [facility] Address: [address] [place] [address] Performed By: #### 2 777-1, , 94909-5 ####[facility]ATORYCLIA [id number] [place] [id number] [facility] Urinalysis complete panel (U )on 08-08-2023 Bacteria LM.HPF (Urine sed) [#/Area] Rare Abnormal None Seen [facility] Comment on above: Order Comment: Specimen Type: URINE SPEC IMENOrdering Facility: [facility] Address: [address] [place] [address] Performed By: #### 2 4356-8 ####[facility]ORATORYCLIA [id number] LABCLIA [id number] [address] [place] Bilirubin Ql (U) Negative Normal Negative [place] [facility] Comment on above: Order Comment: Specimen Type: URINE SPEC IMENOrdering Facility: [facility] Address: [address] [place] [address] Performed By: #### 2 4356-8 ####[facility] LABORATORYCLIA [id number] [address] LABCLIA [id number] [address] [place] Clarity (Unsp spec) Turbid Abnormal Clear [facility] Comment on above: Order Comment: Specimen Type: URINE SPEC IMENOrdering Facility: [facility] Address: [address] [place] [address] Performed By: #### 2 4356-8 ####[facility] LABORATORYCLIA [id number] [address] LABCLIA [id number] [address] [place] Color (U) Light Gila Abnormal Yellow [facility] Comment on above: Order Comment: Specimen Type: URINE SPEC IMENOrdering Facility: [facility] Address: [address] [place] [address] Performed By: #### 2 4356-8 ####[facility] LABORATORYCLIA [id number] [address] LABCLIA [id number] [address] [place] Epithelial cells LM.HPF (Urine sed) [#/Area] Moderate Normal [facility] Comment on above: Order Comment: Specimen Type: URINE SPEC IMENOrdering Facility: [facility] Address: [address] [place] [address] Performed By: #### 2 4356-8 ####[facility] LABORATORYCLIA [id number] [address] LABCLIA [id number] [place] [address] [place] Glucose Test strip (U) [Mass/Vol] Negative Normal Trace, Negative [facility] Comment on above: Order Comment: Specimen Type: URINE SPEC IMENOrdering Facility: [facility] Address: [address] [place] [address] Performed By: #### 2 4356-8 ####[facility] LABORATORYCLIA [id number] [address] LABCLIA [id number] [place] [address] [place] Hemoglobin Ql (U) 3+ Abnormal Negative, Trace [facility] Comment on above: Order Comment: Specimen Type: URINE SPEC IMENOrdering Facility: [facility] Address: [address] [place] [address] Performed By: #### 2 4356-8 ####[facility] LABORATORYCLIA [id number] [address] LABCLIA [id number] [place] [address] [place] Ketones Ql (U) 2+ Abnormal Negative, Trace [facility] Comment on above: Order Comment: Specimen Type: URINE SPEC IMENOrdering Facility: [facility] Address: [address] [place] [address] Performed By: #### 2 4356-8 ####[facility] LABORATORYCLIA [id number] [address] [facility] LABCLIA [id number] [place] [address] [place] Leukocyte esterase Test strip Ql (U) 250 Ko/uL Abnormal Negative, 25 Ko/uL [facility] Comment on above: Order Comment: Specimen Type: URINE SPEC IMENOrdering Facility: [facility] Address: [address] [place] [address] Performed By: #### 2 4356-8 ####[facility] LABORATORYCLIA [id number] [address] LABCLIA [id number] [place] [address] [place] Nitrite Ql (U) Negative Normal Negative [facility] Comment on above: Order Comment: Specimen Type: URINE SPEC IMENOrdering Facility: [facility] Address: [address] [place] [address] Performed By: #### 2 4356-8 ####[facility] LABORATORYCLIA [id number] [address] LABCLIA [id number] [place] [address] [place] pH (U) 6.0 [pH] Normal 5.0-8.0 [facility] Comment on above: Order Comment: Specimen Type: URINE SPEC IMENOrdering Facility: [facility] Address: [address] [place] [address] Performed By: #### 2 4356-8 ####[facility] LABORATORYCLIA [id number] [address] LABCLIA [id number] [place] [address] [place] Protein (U) [Mass/Vol] 1+ Abnormal Trace, Negative [facility] Comment on above: Order Comment: Specimen Type: URINE SPEC IMENOrdering Facility: [facility] Address: [address] [place] [address] Performed By: #### 2 4356-8 ####[facility] LABORATORYCLIA [id number] [address] LABCLIA [id number] [place] [address] [place] RBC LM.HPF (Urine sed) [#/Area] /[HPF] Abnormal 0-3 /HPF [facility] Comment on above: Order Comment: Specimen Type: URINE SPEC IMENOrdering Facility: [facility] Address: [address] [place] [address] Performed By: #### 2 4356-8 ####[facility] LABORATORYCLIA [id number] [address] LABCLIA [id number] [address] [place] Specific gravity (U) [Rel density] 1.011 Normal 1.005-1.03 0 [facility] Comment on above: Order Comment: Specimen Type: URINE SPEC IMENOrdering Facility: [facility] Address: [address] [place] [address] Performed By: #### 2 4356-8 ####[facility] LABORATORYCLIA [id number] [address] LABCLIA [id number] [address] [place] Urobilinogen Ql (U) Normal Normal Normal [facility] Comment on above: Order Comment: Specimen Type: URINE SPEC IMENOrdering Facility: [facility] Address: [address] [place] [address] Performed By: #### 2 4356-8 ####[facility] LABORATORYCLIA [id number] [address] LABCLIA [id number] [place] [address] [place] WBC LM.HPF (Urine sed) [#/Area] /[HPF] Abnormal 0-5 /HPF [facility] Comment on above: Order Comment: Specimen Type: URINE SPEC IMENOrdering Facility: [facility] Address: [address] [place] [address] Performed By: #### 2 4356-8 ####[facility] LABORATORYCLIA [id number] [address] STATES OF [facility] LABCLIA [id number] [address] [place] Urinalysis complete pnl Uron 08-08-2023 Urinalysis complete panel (U) COLOR: Light Gila CLARITY: Turbid GLUCOSE, URINE: Negative BILIRUBIN, URINE: Negative KETONES, URINE: 2+ SPECIFIC GRAVITY, UR: 1.011 HEMOGLOBIN/BLOOD, UR: 3+ PH, URINE: 6.0 PROTEIN, URINE: 1+ UROBILINOGEN: Normal NITRITES: Negative LEUKEST: 250 Ko/uL WBC, URINE: >25 /HPF RBC, URINE: >25 /HPF BACTERIA: Rare SQUAMOUS EPITHELIAL CELLS: Moderate ORGANISM ID: 1 50,000-<100,000 CFU/ml Mixed microbiota No further workup Normal [facility] Comment on above: Order Comment: Specimen Type: URINE SPEC IMENOrdering Facility: [facility] Address: [address] [place] [address] Performed By: #### 2 4356-8 ####[facility] LABORATORYCLIA [id number] [address] STATES OF [facility] LABCLIA [id number] [place] [address] [place] Basic metabolic 2000 panelon 08-07-2023 Anion gap [Moles/Vol] 12 mmol/L Normal 9-18 [facility] Comment on above: Order Comment: Specimen Type: BLOOD SPEC IMENOrdering Facility: [facility] Address: [address] [place] [address] Performed By: #### 1 9123-9, 55045-8, 2777-1 ####[facility] LABORATORYCLIA [id number] [place] [address] [place] Calcium [Mass/Vol] 8.4 mg/dL Low 8.5-10.2 [facility] Comment on above: Order Comment: Specimen Type: BLOOD SPEC IMENOrdering Facility: [facility] Address: [address] [place] [address] Performed By: #### 1 9123-9, 14285-2, 2776- ####[facility] LABORATORYCLIA [id number] [place] [id number] [place] Chloride [Moles/Vol] 105 mmol/L Normal 97-105 [facility] Comment on above: Order Comment: Specimen Type: BLOOD SPEC IMENOrdering Facility: [facility] Address: [address] [place] [address] Performed By: #### 1 9123-9, 27349-8, 2776- ####[facility] LABORATORYCLIA [id number] [place] [id number] [place] CO2 [Moles/Vol] 22 mmol/L Normal 22-30 [facility] Comment on above: Order Comment: Specimen Type: BLOOD SPEC IMENOrdering Facility: [facility] Address: [address] [place] [address] Performed By: #### 1 9123-9, 76891-2, 2776-06 ####[facility] LABORATORYCLIA [id number] [place] [id number] [place] Creatinine [Mass/Vol] 0.61 mg/dL Normal 0.58-0.96 [facility] Comment on above: Order Comment: Specimen Type: BLOOD SPEC IMENOrdering Facility: [facility] Address: [address] [place] [address] Performed By: #### 1 9123-9, 62604-4, 2776- ####[facility] LABORATORYCLIA [id number] [place] [id number] [place] Creatinine and Glomerular filtration rate.predicted panel (S/P/Bld) 118 mL/min/1.73m??? Normal >=60 [facility] Comment on above: Order Comment: Specimen Type: BLOOD SPEC IMENOrdering Facility: [facility] Address: [address] [place] [address] Result Comment: Janet mated Glomerular Filtration Rate [...] actual GFR. Performed By: #### 1 9123-9, 76234-2, 2776-06 ####[facility] LABORATORYCLIA [id number] [place] [id number] [place] Glucose [Mass/Vol] 99 mg/dL Normal 74-99 [facility] Comment on above: Order Comment: Specimen Type: BLOOD SPEC IMENOrdering Facility: [facility] Address: [address] [place] [address] Result Comment: The [place] Diabetes Association (ADA) provides guidance for cutoff [...] Standards of Medical Care in Diabetes 2016, [place] [employer]. Diabetes Care. 2016.39(Suppl 1). Performed By: #### 1 9123-9, 50447-0, 2776-06 ####[facility] LABORATORYCLIA [id number] [place] [id number] [place] Potassium [Moles/Vol] 3.7 mmol/L Normal 3.7-5.1 [facility] Comment on above: Order Comment: Specimen Type: BLOOD SPEC IMENOrdering Facility: [facility] Address: [address] [place] [address] Performed By: #### 1 9123-9, 14634-0, 2776- ####[facility] LABORATORYCLIA [id number] [place] [address] [place] Sodium [Moles/Vol] 139 mmol/L Normal 136-144 [facility] Comment on above: Order Comment: Specimen Type: BLOOD SPEC IMENOrdering Facility: [facility] Address: [address] [place] [address] Performed By: #### 1 9123-9, 63793-8, 2777- ####[facility] LABORATORYCLIA [id number] [place] [id number] [facility] Urea nitrogen [Mass/Vol] 3 mg/dL Low 7-21 [facility] Comment on above: Order Comment: Specimen Type: BLOOD SPEC IMENOrdering Facility: [facility] Address: [address] [place] [address] Performed By: #### 1 9123-9, 95869-3, 2777 ####[facility] LABORATORYCLIA [id number] [place] [id number] [facility] CASE MANAGEMon 08-07-2023 CASE MANAGEM HNO ID: [id number] Author: ARTUR DIAMOND RN Service: ? Author Type: Registered Nurse Type: Care Mgt Progress Note Filed: 08/07/2023 09:33 Note Text: CARE MANAGEMENT WEEKEND PLANNING NOTE POSSIBLE DISCHARGE Date/Time: TBD Disposition: home w/ family support Transport: Car per pt arrangement Other Concerns: S/p Biliopancreatic diversion w/ duodenal switch. Await return of bowel function. On Phase 1 diet. Anticipate no skilled needs at [place]. Weekend Agriculture Research Director Pager #: Peyman Pizano [phone] SIGNATURE: Artur Diamond RN PATIENT NAME: Susi Borjahip DATE: August 07, 2023 TIME: 9:29 AM PAGER/CONTACT #: [phone] Normal [facility] CBC W Auto Differential pane l (Bld)on 08-07-2023 Basophils (Bld) [#/Vol] 0.49 10*3/uL High <0.11 [facility] Comment on above: Order Comment: Specimen Type: BLOOD SPEC IMENOrdering Facility: [facility] Address: [address] [place] [address] Performed By: #### 5 7021-8 ####[facility] LABORATORYCLIA [id number] [place] [id number] [place] Basophils/100 WBC (Bld) 3.0 % Normal [facility] Comment on above: Order Comment: Specimen Type: BLOOD SPEC IMENOrdering Facility: [facility] Address: [address] [place] [address] Performed By: #### 5 7021-8 ####[facility] LABORATORYCLIA [id number] [place] [address] [facility] [place] Differential cell count method Nom (Bld) Manual Normal [facility] Comment on above: Order Comment: Specimen Type: BLOOD SPEC IMENOrdering Facility: [facility] Address: [address] [place] [address] Performed By: #### 5 7021-8 ####[facility] LABORATORYCLIA [id number] [place] [address] [place] Eosinophils (Bld) [#/Vol] 0.00 10*3/uL Normal <0.46 [facility] Comment on above: Order Comment: Specimen Type: BLOOD SPEC IMENOrdering Facility: [facility] Address: [address] [place] [address] Performed By: #### 5 7021-8 ####[facility] LABORATORYCLIA [id number] [address] Eosinophils/100 WBC (Bld) 0.0 % Normal [facility] Comment on above: Order Comment: Specimen Type: BLOOD SPEC IMENOrdering Facility: [facility] Address: [address] [place] [address] Performed By: #### 5 7021-8 ####[facility] LABORATORYCLIA [id number] [place] [id number] [place] Erythrocyte distribution width (RBC) [Ratio] 14.2 % Normal 11.5-15.0 [facility] Comment on above: Order Comment: Specimen Type: BLOOD SPEC IMENOrdering Facility: [facility] Address: [address] [place] [address] Performed By: #### 5 7021-8 ####[facility] LABORATORYCLIA [id number] [place] [id number] [place] Hematocrit (Bld) [Volume fraction] 37.7 % Normal 36.0-46.0 [facility] Comment on above: Order Comment: Specimen Type: BLOOD SPEC IMENOrdering Facility: [facility] Address: [address] [place] [address] Performed By: #### 5 7021-8 ####[facility] LABORATORYCLIA [id number] [place] [id number] [place] Hemoglobin (Bld) [Mass/Vol] 11.8 g/dL Normal 11.5-15.5 [facility] Comment on above: Order Comment: Specimen Type: BLOOD SPEC IMENOrdering Facility: [facility] Address: [address] [place] [address] Performed By: #### 5 7021-8 ####[facility] LABORATORYCLIA [id number] [place] [address] [place] Lymphocytes (Bld) [#/Vol] 4.43 10*3/uL High 1.00-4.00 [facility] Comment on above: Order Comment: Specimen Type: BLOOD SPEC IMENOrdering Facility: [facility] Address: [address] [place] [address] Performed By: #### 5 7021-8 ####[facility] LABORATORYCLIA [id number] [place] [id number] [place] Lymphocytes/100 WBC (Bld) 27.0 % Normal [facility] Comment on above: Order Comment: Specimen Type: BLOOD SPEC IMENOrdering Facility: [facility] Address: [address] [place] [address] Performed By: #### 5 7021-8 ####[facility] LABORATORYCLIA [id number] [place] [id number] [place] MCH (RBC) [Entitic mass] 29.4 pg Normal 26.0-34.0 [facility] Comment on above: Order Comment: Specimen Type: BLOOD SPEC IMENOrdering Facility: [facility] Address: [address] [place] [address] Performed By: #### 5 7021-8 ####[facility] LABORATORYCLIA [id number] [place] [id number] [place] MCHC (RBC) [Mass/Vol] 31.3 g/dL Normal 30.5-36.0 [facility] Comment on above: Order Comment: Specimen Type: BLOOD SPEC IMENOrdering Facility: [facility] Address: [address] [place] [address] Performed By: #### 5 7021-8 ####[facility] LABORATORYCLIA [id number] [place] [id number] [place] MCV (RBC) [Entitic vol] 94.0 fL Normal 80.0-100.0 [facility] Comment on above: Order Comment: Specimen Type: BLOOD SPEC IMENOrdering Facility: [facility] Address: [address] [place] [address] Performed By: #### 5 7021-8 ####[facility] LABORATORYCLIA [id number] [place] [address] [place] Monocytes (Bld) [#/Vol] 1.48 10*3/uL High <0.87 [facility] Comment on above: Order Comment: Specimen Type: BLOOD SPEC IMENOrdering Facility: [facility] Address: [address] [place] [address] Performed By: #### 5 7021-8 ####[facility] LABORATORYCLIA [id number] [place] [id number] [place] Monocytes/100 WBC (Bld) 9.0 % Normal [facility] Comment on above: Order Comment: Specimen Type: BLOOD SPEC IMENOrdering Facility: [facility] Address: [address] [place] [address] Performed By: #### 5 7021-8 ####[facility] LABORATORYCLIA [id number] [place] [id number] [place] Neutrophils (Bld) [#/Vol] 10.00 10*3/uL High 1.45-7.50 [facility] Comment on above: Order Comment: Specimen Type: BLOOD SPEC IMENOrdering Facility: [facility] Address: [address] [place] [address] Performed By: #### 5 7021-8 ####[facility] LABORATORYCLIA [id number] [place] [id number] [facility] [place] Neutrophils/100 WBC (Bld) 61.0 % Normal [facility] Comment on above: Order Comment: Specimen Type: BLOOD SPEC IMENOrdering Facility: [facility] Address: [address] [place] [address] Performed By: #### 5 7021-8 ####[facility] LABORATORYCLIA [id number] [place] [id number] [place] Nucleated RBC (Bld) [#/Vol] 10*3/uL Normal <0.01 [facility] Comment on above: Order Comment: Specimen Type: BLOOD SPEC IMENOrdering Facility: [facility] Address: [address] [place] [address] Performed By: #### 5 7021-8 ####[facility] LABORATORYCLIA [id number] [place] [id number] [place] Nucleated RBC/100 WBC (Bld) [Ratio] 0.0 /100 WBC Normal [facility] Comment on above: Order Comment: Specimen Type: BLOOD SPEC IMENOrdering Facility: [facility] Address: [address] [place] [address] Performed By: #### 5 7021-8 ####[facility] LABORATORYCLIA [id number] [place] [id number] [place] Platelet mean volume (Bld) [Entitic vol] 9.3 fL Normal 9.0-12.7 [facility] Comment on above: Order Comment: Specimen Type: BLOOD SPEC IMENOrdering Facility: [facility] Address: [address] [place] [address] Performed By: #### 5 7021-8 ####[facility] LABORATORYCLIA [id number] [place] [id number] [place] Platelets (Bld) [#/Vol] 409 10*3/uL High 150-400 [facility] Comment on above: Order Comment: Specimen Type: BLOOD SPEC IMENOrdering Facility: [facility] Address: [address] [place] [address] Performed By: #### 5 7021-8 ####[facility] LABORATORYCLIA [id number] [place] [address] [place] Platelets Estimate (Bld) [#/Vol] Increased Normal [facility] Comment on above: Order Comment: Specimen Type: BLOOD SPEC IMENOrdering Facility: [facility] Address: [address] [place] [address] Performed By: #### 5 7021-8 ####[facility] LABORATORYCLIA [id number] [place] [id number] [place] RBC (Bld) [#/Vol] 4.01 10*6/uL Normal 3.90-5.20 [facility] Comment on above: Order Comment: Specimen Type: BLOOD SPEC IMENOrdering Facility: [facility] Address: [address] [place] [address] Performed By: #### 5 7021-8 ####[facility] LABORATORYCLIA [id number] [place] [id number] [facility] RED CELL MORPH Reviewed: unremarkable Normal [facility] Comment on above: Order Comment: Specimen Type: BLOOD SPEC IMENOrdering Facility: [facility] Address: [address] [place] [address] Performed By: #### 5 7021-8 ####[facility] LABORATORYCLIA [id number] [place] [id number] [place] WBC (Bld) [#/Vol] 16.39 10*3/uL High 3.70-11.00 [facility] Comment on above: Order Comment: Specimen Type: BLOOD SPEC IMENOrdering Facility: [facility] Address: [address] [place] [address] Performed By: #### 5 7021-8 ####[facility] LABORATORYCLIA [id number] [place] [id number] [place] CONSULT PROGon 08-07-2023 CONSULT PROG HNO ID: [id number] Author: BUCKY LFORES APRN.MEDICAL SCRIBE Service: Pain Management Author Type: Nurse Practitioner [...] PLAN/Recs: Continue Bupi 0.0625%/Fent epidural analgesia at 84/15/4 to promote comfort, mobility, and pulmonary toilet [...] OBJECTIVE PERTINENT ROS: ALLERGIES Allergen Reactions Adhes. Ugtm-Qfld-Ui* Rash Adhesive Tape-Silic* Rash Augmentin [Amoxicil* Diarrhea [...] Day of surgery MEDICATIONS: Epidural Medications and SOCIAL INSURANCE ANALYST Settings Bupivacaine 0.0625% + Fentanyl 2 mcg/mL [...] (CYMBALTA) 60 mg ORAL DAILY phenol 1 [place] (CHLORASEPTIC) 1 [place] MUCOUS MEMBRANE (TOPICAL MOUTH AND THROAT) q [...] INTRAVENOUS CON (more content not included)... Normal [facility] Magnesium SerPl-mCncon 08-07 Magnesium [Mass/Vol] 1.9 mg/dL Normal 1.7-2.3 [facility] Comment on above: Order Comment: Specimen Type: BLOOD SPEC IMENOrdering Facility: [facility] Address: [address] [place] [address] Performed By: #### 1 9123-9, 43308-0, 2777-1 ####[facility] LABORATORYCLIA [id number] [place] [address] [place] Phosphate SerPl-mCncon 08-07 Phosphate [Mass/Vol] 2.3 mg/dL Low 2.7-4.8 [facility] Comment on above: Order Comment: Specimen Type: BLOOD SPEC IMENOrdering Facility: [facility] Address: [address] [place] [address] Performed By: #### 1 9123-9, 14031-2, 2777-1 ####[facility] LABORATORYCLIA [id number] [place] [id number] [place] Basic metabolic 2000 panelon 08-06-2023 Anion gap [Moles/Vol] 12 mmol/L Normal 9-18 [facility] Comment on above: Order Comment: Specimen Type: BLOOD SPEC IMENOrdering Facility: [facility] Address: [address] [place] [id number] Performed By: #### 2 4321-2, , 2776-06 ####[facility] LABORATORYCLIA [id number] [place] [address] [place] Calcium [Mass/Vol] 8.0 mg/dL Low 8.5-10.2 [facility] Comment on above: Order Comment: Specimen Type: BLOOD SPEC IMENOrdering Facility: [facility] Address: [address] [place] [address] Performed By: #### 2 4321-2, , 2776-06 ####[facility] LABORATORYCLIA [id number] [place] [id number] [place] Chloride [Moles/Vol] 106 mmol/L High 97-105 [facility] Comment on above: Order Comment: Specimen Type: BLOOD SPEC IMENOrdering Facility: [facility] Address: [address] [place] [address] Performed By: #### 2 432-2, , 2776-06 ####[facility] LABORATORYCLIA [id number] [place] [id number] [place] CO2 [Moles/Vol] 23 mmol/L Normal 22-30 [facility] Comment on above: Order Comment: Specimen Type: BLOOD SPEC IMENOrdering Facility: [facility] Address: [address] [place] [address] Performed By: #### 2 4321-2, , 2776-06 ####GEORGE LABORATORYCLIA [id number] [place] [id number] [place] Creatinine [Mass/Vol] 0.69 mg/dL Normal 0.58-0.96 [facility] Comment on above: Order Comment: Specimen Type: BLOOD SPEC IMENOrdering Facility: [facility] Address: [address] [place] [address] Performed By: #### 2 4321-2, , 2776-06 ####GEORGE LABORATORYCLIA [id number] [place] [id number] [place] Creatinine and Glomerular filtration rate.predicted panel (S/P/Bld) 114 mL/min/1.73m??? Normal >=60 [facility] Comment on above: Order Comment: Specimen Type: BLOOD SPEC IMENOrdering Facility: [facility] Address: [address] [place] [address] Result Comment: Janet mated Glomerular Filtration Rate [...] Performed By: #### 2 4321-2, , 2776-06 ####[facility]ON LABORATORYCLIA [id number] [place] [address] [place] Glucose [Mass/Vol] 83 mg/dL Normal 74-99 [facility] Comment on above: Order Comment: Specimen Type: BLOOD SPEC IMENOrdering Facility: [facility] Address: [address] [place] [address] Result Comment: The [place] Diabetes Association (ADA) provides guidance for cutoff [...] Standards of Medical Care in Diabetes 2016, [place] Diabetes [employer]. Diabetes Care. 2016.39(Suppl 1). Performed By: #### 2 4321-2, , 2776-06 ####HUDSON LABORATORYCLIA [id number] [place] [id number] [place] Potassium [Moles/Vol] 3.8 mmol/L Normal 3.7-5.1 [facility] Comment on above: Order Comment: Specimen Type: BLOOD SPEC IMENOrdering Facility: [facility] Address: [address] [place] [address] Performed By: #### 2 4321-2, , 2776-06 ####GEORGE LABORATORYCLIA [id number] [place] [id number] [place] Sodium [Moles/Vol] 141 mmol/L Normal 136-144 [facility] Comment on above: Order Comment: Specimen Type: BLOOD SPEC IMENOrdering Facility: [facility] Address: [address] [place] [address] Performed By: #### 2 4321-2, , 2776-06 ####GEORGE LABORATORYCLIA [id number] [place] [address] [place] Urea nitrogen [Mass/Vol] 5 mg/dL Low 7-21 [facility] Comment on above: Order Comment: Specimen Type: BLOOD SPEC IMENOrdering Facility: [facility] Address: [address] [place] [address] Performed By: #### 2 4321-2, , 2776-06 ####GEORGE LABORATORYCLIA [id number] [place] [id number] [place] CBC W Auto Differential pane l (Bld)on 08-06-2023 Basophils (Bld) [#/Vol] 0.37 10*3/uL High <0.11 [facility] Comment on above: Order Comment: Specimen Type: BLOOD SPEC IMENOrdering Facility: [facility] Address: [address] [place] [address] Performed By: #### 5 7021-8 ####GEORGE LABORATORYCLIA [id number] [place] [id number] [place] Basophils/100 WBC (Bld) 2.0 % Normal [facility] Comment on above: Order Comment: Specimen Type: BLOOD SPEC IMENOrdering Facility: [facility] Address: [address] [place] [address] Performed By: #### 5 7021-8 ####GEORGE LABORATORYCLIA [id number] [address] [place] Differential cell count method Nom (Bld) Manual Normal [facility] Comment on above: Order Comment: Specimen Type: BLOOD SPEC IMENOrdering Facility: [facility] Address: [address] [place] [address] Performed By: #### 5 7021-8 ####GEORGE LABORATORYCLIA [id number] [place] [address] [place] Eosinophils (Bld) [#/Vol] 0.74 10*3/uL High <0.46 [facility] Comment on above: Order Comment: Specimen Type: BLOOD SPEC IMENOrdering Facility: [facility] Address: [address] [place] [address] Performed By: #### 5 7021-8 ####GEORGE LABORATORYCLIA [id number] [address] [place] Eosinophils/100 WBC (Bld) 4.0 % Normal [facility] Comment on above: Order Comment: Specimen Type: BLOOD SPEC IMENOrdering Facility: [facility] Address: [address] [place] [address] Performed By: #### 5 7021-8 ####GEORGE LABORATORYCLIA [id number] [address] [place] Erythrocyte distribution width (RBC) [Ratio] 14.6 % Normal 11.5-15.0 [facility] Comment on above: Order Comment: Specimen Type: BLOOD SPEC IMENOrdering Facility: [facility] Address: [address] [place] [address] Performed By: #### 5 7021-8 ####GEORGE LABORATORYCLIA [id number] [place] [id number] [place] Hematocrit (Bld) [Volume fraction] 38.0 % Normal 36.0-46.0 [facility] Comment on above: Order Comment: Specimen Type: BLOOD SPEC IMENOrdering Facility: [facility] Address: [address] [place] [address] Performed By: #### 5 7021-8 ####GEORGE LABORATORYCLIA [id number] [place] [id number] [place] Hemoglobin (Bld) [Mass/Vol] 11.7 g/dL Normal 11.5-15.5 [facility] Comment on above: Order Comment: Specimen Type: BLOOD SPEC IMENOrdering Facility: [facility] Address: [address] [place] [address] Performed By: #### 5 7021-8 ####[facility] LABORATORYCLIA [id number] [place] [address] [place] Lymphocytes (Bld) [#/Vol] 4.05 10*3/uL High 1.00-4.00 [facility] Comment on above: Order Comment: Specimen Type: BLOOD SPEC IMENOrdering Facility: [facility] Address: [address] [place] [address] Performed By: #### 5 7021-8 ####GEORGE LABORATORYCLIA [id number] [address] [place] Lymphocytes/100 WBC (Bld) 22.0 % Normal [facility] Comment on above: Order Comment: Specimen Type: BLOOD SPEC IMENOrdering Facility: [facility] Address: [address] [place] [address] Performed By: #### 5 7021-8 ####GEORGE LABORATORYCLIA [id number] [place] [address] [place] MCH (RBC) [Entitic mass] 29.5 pg Normal 26.0-34.0 [facility] Comment on above: Order Comment: Specimen Type: BLOOD SPEC IMENOrdering Facility: [facility] Address: [address] [place] [address] Performed By: #### 5 7021-8 ####[facility] LABORATORYCLIA [id number] [place] [id number] [place] MCHC (RBC) [Mass/Vol] 30.8 g/dL Normal 30.5-36.0 [facility] Comment on above: Order Comment: Specimen Type: BLOOD SPEC IMENOrdering Facility: [facility] Address: [address] [place], [place] [address] Performed By: #### 5 7021-8 ####[facility] LABORATORYCLIA [id number] [place] [id number] [place] MCV (RBC) [Entitic vol] 96.0 fL Normal 80.0-100.0 [facility] Comment on above: Order Comment: Specimen Type: BLOOD SPEC IMENOrdering Facility: [facility] Address: [address] [place] [address] Performed By: #### 5 7021-8 ####[facility] LABORATORYCLIA [id number] [place] [id number] [place] Monocytes (Bld) [#/Vol] 1.84 10*3/uL High <0.87 [facility] Comment on above: Order Comment: Specimen Type: BLOOD SPEC IMENOrdering Facility: [facility] Address: [address] [place] [address] Performed By: #### 5 7021-8 ####[facility] LABORATORYCLIA [id number] [place] [id number] [place] Monocytes/100 WBC (Bld) 10.0 % Normal [facility] Comment on above: Order Comment: Specimen Type: BLOOD SPEC IMENOrdering Facility: [facility] Address: [address] [place] [address] Performed By: #### 5 7021-8 ####[facility] LABORATORYCLIA [id number] [place] [id number] [place] Neutrophils (Bld) [#/Vol] 11.42 10*3/uL High 1.45-7.50 [facility] Comment on above: Order Comment: Specimen Type: BLOOD SPEC IMENOrdering Facility: [facility] Address: [address] [place] [address] Performed By: #### 5 7021-8 ####[facility] LABORATORYCLIA [id number] [place] [id number] [place] Neutrophils/100 WBC (Bld) 62.0 % Normal [facility] Comment on above: Order Comment: Specimen Type: BLOOD SPEC IMENOrdering Facility: [facility] Address: [address] [place] [address] Performed By: #### 5 7021-8 ####[facility] LABORATORYCLIA [id number] [place] [id number] [place] Nucleated RBC (Bld) [#/Vol] 10*3/uL Normal <0.01 [facility] Comment on above: Order Comment: Specimen Type: BLOOD SPEC IMENOrdering Facility: [facility] Address: [address] [place] [address] Performed By: #### 5 7021-8 ####[facility] LABORATORYCLIA [id number] [place] [id number] [place] Nucleated RBC/100 WBC (Bld) [Ratio] 0.0 /100 WBC Normal [facility] Comment on above: Order Comment: Specimen Type: BLOOD SPEC IMENOrdering Facility: [facility] Address: [address] [place] [address] Performed By: #### 5 7021-8 ####[facility] LABORATORYCLIA [id number] [place] [address] [place] Platelet mean volume (Bld) [Entitic vol] 9.4 fL Normal 9.0-12.7 [facility] Comment on above: Order Comment: Specimen Type: BLOOD SPEC IMENOrdering Facility: [facility] Address: [address] [place] [address] Performed By: #### 5 7021-8 ####[facility] LABORATORYCLIA [id number] [place] [id number] [place] Platelets (Bld) [#/Vol] 415 10*3/uL High 150-400 [facility] Comment on above: Order Comment: Specimen Type: BLOOD SPEC IMENOrdering Facility: [facility] Address: [facility] [place] [address] Performed By: #### 5 7021-8 ####[facility] LABORATORYCLIA [id number] [place] [id number] [place] Platelets Estimate (Bld) [#/Vol] Increased Normal [facility] Comment on above: Order Comment: Specimen Type: BLOOD SPEC IMENOrdering Facility: [facility] Address: [address] [place] [address] Performed By: #### 5 7021-8 ####HU[facility] LABORATORYCLIA [id number] [place] [id number] [facility] RBC (Bld) [#/Vol] 3.96 10*6/uL Normal 3.90-5.20 [facility] Comment on above: Order Comment: Specimen Type: BLOOD SPEC IMENOrdering Facility: [facility] Address: [address] [place] [address] Performed By: #### 5 7021-8 ####HU[facility]ON LABORATORYCLIA [id number] [place] [id number] [facility] RED CELL MORPH Reviewed: unremarkable Normal [facility] Comment on above: Order Comment: Specimen Type: BLOOD SPEC IMENOrdering Facility: [facility] Address: [address] [place] [address] Performed By: #### 5 7021-8 ####HUDSON LABORATORYCLIA [id number] [place] [id number] [facility] [place] WBC (Bld) [#/Vol] 18.42 10*3/uL High 3.70-11.00 [facility] Comment on above: Order Comment: Specimen Type: BLOOD SPEC IMENOrdering Facility: [facility] Address: [address] [place] [address] Performed By: #### 5 7021-8 ####HU[facility]ON LABORATORYCLIA [id number] [place] [id number] [facility] CONSULT PROGon 08-06-2023 CONSULT PROG HNO ID: [id number] Author: BUCKY FLORES APRN.MEDICAL SCRIBE Service: Pain Management Author Type: Nurse Practitioner [...] OBJECTIVE PERTINENT ROS: ALLERGIES Allergen Reactions Adhes. Xzym-Iwwd-Ap* Rash Adhesive Tape-Silic* Rash Augmentin [Amoxicil* Diarrhea [...] Day of surgery MEDICATIONS: Epidural Medications and SOCIAL INSURANCE ANALYST Settings Bupivacaine 0.0625% + Fentanyl 2 mcg/mL [...] (CYMBALTA) 60 mg ORAL DAILY phenol 1 [place] (CHLORASEPTIC) 1 [place] MUCOUS MEMBRANE (TOPICAL MOUTH AND THROAT) q [...] senna-docusate 8.6-50 (more content not included)... Normal [facility] [Mass/Vol] 2.0 mg/dL Normal 1.7-2.3 [facility] Comment on above: Order Comment: Specimen Type: BLOOD SPEC IMENOrdering Facility: [facility] Address: [address] [place] [address] Performed By: #### 2 4321-2, 05153-4, 2776-06 ####GEORGE LABORATORYCLIA [id number] [place] [address] [place] NURSING PROGon 08-06-2023 NURSING PROG HNO ID: [id number] Author: BUCKY JOSHI, RN Service: Nursing Author Type: Registered Nurse Type: Nursing Progress Note Filed: 08/06/2023 18:19 Note Text: Other: 1410: Pt ambulated POD with standby assist. HR 150-170s at this time, returned to normal at rest. Josee MARTINEZ on unit and aware. Normal [facility] Phosphate [facility] 08-06 Phosphate [Mass/Vol] 3.0 mg/dL Normal 2.7-4.8 [facility] Comment on above: Order Comment: Specimen Type: BLOOD SPEC IMENOrdering Facility: [facility] Address: [address] [place] [address] Performed By: #### 2 4321-2, , 2776-06 ####GEORGE LABORATORYCLIA [id number] [place] [id number] [place] Basic metabolic 2000 panelon 08-05-2023 Anion gap [Moles/Vol] 10 mmol/L Normal 9-18 [facility] Comment on above: Order Comment: Specimen Type: BLOOD SPEC IMENOrdering Facility: [facility] Address: [address] [place] [address] Performed By: #### 2 4321-2, HSTNT ####[facility] LABORATORYCLIA [id number] [place] [id number] [place] Calcium [Mass/Vol] 7.8 mg/dL Low 8.5-10.2 [facility] Comment on above: Order Comment: Specimen Type: BLOOD SPEC IMENOrdering Facility: [facility] Address: [address] [place] [address] Performed By: #### 2 4321-2, HSTNT ####[facility] LABORATORYCLIA [id number] [place] [id number] [place] Chloride [Moles/Vol] 105 mmol/L Normal 97-105 [facility] Comment on above: Order Comment: Specimen Type: BLOOD SPEC IMENOrdering Facility: [facility] Address: [address] [place] [address] Performed By: #### 2 4321-2, HSTNT ####[facility] LABORATORYCLIA [id number] [place] [id number] [place] CO2 [Moles/Vol] 24 mmol/L Normal 22-30 [facility] Comment on above: Order Comment: Specimen Type: BLOOD SPEC IMENOrdering Facility: [facility] Address: [address] [place] [address] Performed By: #### 2 4321-2, HSTNT ####GEORGE LABORATORYCLIA [id number] [place] [id number] [place] Creatinine [Mass/Vol] 0.77 mg/dL Normal 0.58-0.96 [facility] Comment on above: Order Comment: Specimen Type: BLOOD SPEC IMENOrdering Facility: [facility] Address: [address] [place] [address] Performed By: #### 2 4321-2, HSTNT ####GEORGE LABORATORYCLIA [id number] [place] [id number] [place] Creatinine and Glomerular filtration rate.predicted panel (S/P/Bld) 101 mL/min/1.73m??? Normal >=60 [facility] Comment on above: Order Comment: Specimen Type: BLOOD SPEC IMENOrdering Facility: [facility] Address: [address] [place] [address] Result Comment: Janet mated Glomerular Filtration Rate [...] GFR. Performed By: #### 2 4321-2, HSTNT ####[facility] LABORATORYCLIA [id number] [place] [address] [place] Glucose [Mass/Vol] 93 mg/dL Normal 74-99 [facility] Comment on above: Order Comment: Specimen Type: BLOOD SPEC IMENOrdering Facility: [facility] Address: [address] [place] [address] Result Comment: The [place] Diabetes Association (ADA) provides guidance for cutoff [...] Standards of Medical Care in Diabetes 2016, [place] Diabetes [employer]. Diabetes Care. 2016.39(Suppl 1). Performed By: #### 2 4321-2, HSTNT ####[facility] LABORATORYCLIA [id number] [place] [id number] [place] Potassium [Moles/Vol] 3.4 mmol/L Low 3.7-5.1 [facility] Comment on above: Order Comment: Specimen Type: BLOOD SPEC IMENOrdering Facility: [facility] Address: [address] [place] [address] Performed By: #### 2 4321-2, HSTNT ####[facility] LABORATORYCLIA [id number] [place] [address] [place] Sodium [Moles/Vol] 139 mmol/L Normal 136-144 [facility] Comment on above: Order Comment: Specimen Type: BLOOD SPEC IMENOrdering Facility: [facility] Address: [address] [place] [address] Performed By: #### 2 4321-2, HSTNT ####[facility] LABORATORYCLIA [id number] [place] [address] [place] Urea nitrogen [Mass/Vol] 7 mg/dL Normal 7-21 [facility] Comment on above: Order Comment: Specimen Type: BLOOD SPEC IMENOrdering Facility: [facility] Address: [address] [place] [address] Performed By: #### 2 4321-2, HSTNT ####[facility] LABORATORYCLIA [id number] [place] [address] [place] CBC W Auto Differential pane l (Bld)on 08-05-2023 Basophils (Bld) [#/Vol] 0.15 10*3/uL High <0.11 [facility] Comment on above: Order Comment: Specimen Type: BLOOD SPEC IMENOrdering Facility: [facility] Address: [address] [place] [address] Performed By: #### 5 7021-8 ####GEORGE LABORATORYCLIA [id number] [place] [address] [place] Basophils/100 WBC (Bld) 1.0 % Normal [facility] Comment on above: Order Comment: Specimen Type: BLOOD SPEC IMENOrdering Facility: [facility] Address: [address] [place] [address] Performed By: #### 5 7021-8 ####[facility] LABORATORYCLIA [id number] [place] [address] [place] Differential cell count method Nom (Bld) Manual Normal [facility] Comment on above: Order Comment: Specimen Type: BLOOD SPEC IMENOrdering Facility: [facility] Address: [address] [place] [address] Performed By: #### 5 7021-8 ####GEORGE LABORATORYCLIA [id number] [place] [address] [place] Eosinophils (Bld) [#/Vol] 0.15 10*3/uL Normal <0.46 [facility] Comment on above: Order Comment: Specimen Type: BLOOD SPEC IMENOrdering Facility: [facility] Address: [address] [place] [address] Performed By: #### 5 7021-8 ####GEORGE LABORATORYCLIA [id number] [address] [place] Eosinophils/100 WBC (Bld) 1.0 % Normal [facility] Comment on above: Order Comment: Specimen Type: BLOOD SPEC IMENOrdering Facility: [facility] Address: [address] [place] [address] Performed By: #### 5 7021-8 ####GEORGE LABORATORYCLIA [id number] [address] [place] Erythrocyte distribution width (RBC) [Ratio] 14.6 % Normal 11.5-15.0 [facility] Comment on above: Order Comment: Specimen Type: BLOOD SPEC IMENOrdering Facility: [facility] Address: [address] [place] [address] Performed By: #### 5 7021-8 ####GEORGE LABORATORYCLIA [id number] [place] [address] [place] Hematocrit (Bld) [Volume fraction] 38.5 % Normal 36.0-46.0 [facility] Comment on above: Order Comment: Specimen Type: BLOOD SPEC IMENOrdering Facility: [facility] Address: [address] [place] [address] Performed By: #### 5 7021-8 ####GEORGE LABORATORYCLIA [id number] [place] [address] [place] Hemoglobin (Bld) [Mass/Vol] 11.9 g/dL Normal 11.5-15.5 [facility] Comment on above: Order Comment: Specimen Type: BLOOD SPEC IMENOrdering Facility: [facility] Address: [address] [place] [address] Performed By: #### 5 7021-8 ####[facility] LABORATORYCLIA [id number] [place] [address] [place] Lymphocytes (Bld) [#/Vol] 2.79 10*3/uL Normal 1.00-4.00 [facility] Comment on above: Order Comment: Specimen Type: BLOOD SPEC IMENOrdering Facility: [facility] Address: [address] [place] [address] Performed By: #### 5 7021-8 ####[facility] LABORATORYCLIA [id number] [address] Lymphocytes/100 WBC (Bld) 19.0 % Normal [facility] Comment on above: Order Comment: Specimen Type: BLOOD SPEC IMENOrdering Facility: [facility] Address: [address] [place] [address] Performed By: #### 5 7021-8 ####[facility] LABORATORYCLIA [id number] [place] [address] [place] MCH (RBC) [Entitic mass] 29.2 pg Normal 26.0-34.0 [facility] Comment on above: Order Comment: Specimen Type: BLOOD SPEC IMENOrdering Facility: [facility] Address: [address] [place] [address] Performed By: #### 5 7021-8 ####[facility] LABORATORYCLIA [id number] [place] [id number] [place] MCHC (RBC) [Mass/Vol] 30.9 g/dL Normal 30.5-36.0 [facility] Comment on above: Order Comment: Specimen Type: BLOOD SPEC IMENOrdering Facility: [facility] Address: [address] [place] [address] Performed By: #### 5 7021-8 ####[facility] LABORATORYCLIA [id number] [address] [place] MCV (RBC) [Entitic vol] 94.6 fL Normal 80.0-100.0 [facility] Comment on above: Order Comment: Specimen Type: BLOOD SPEC IMENOrdering Facility: [facility] Address: [address] [place] [address] Performed By: #### 5 7021-8 ####[facility] LABORATORYCLIA [id number] [place] [id number] [place] Monocytes (Bld) [#/Vol] 0.59 10*3/uL Normal <0.87 [facility] Comment on above: Order Comment: Specimen Type: BLOOD SPEC IMENOrdering Facility: [facility] Address: [address] [place] [address] Performed By: #### 5 7021-8 ####[facility] LABORATORYCLIA [id number] [place] [id number] [place] Monocytes/100 WBC (Bld) 4.0 % Normal [facility] Comment on above: Order Comment: Specimen Type: BLOOD SPEC IMENOrdering Facility: [facility] Address: [address] [place] [address] Performed By: #### 5 7021-8 ####[facility] LABORATORYCLIA [id number] [place] [id number] [place] Neutrophils (Bld) [#/Vol] 11.00 10*3/uL High 1.45-7.50 [facility] Comment on above: Order Comment: Specimen Type: BLOOD SPEC IMENOrdering Facility: [facility] Address: [address] [place] [address] Performed By: #### 5 7021-8 ####[facility] LABORATORYCLIA [id number] [place] [id number] [place] Neutrophils/100 WBC (Bld) 75.0 % Normal [facility] Comment on above: Order Comment: Specimen Type: BLOOD SPEC IMENOrdering Facility: [facility] Address: [address] [place] [address] Performed By: #### 5 7021-8 ####[facility] LABORATORYCLIA [id number] [place] [address] [place] Nucleated RBC (Bld) [#/Vol] 10*3/uL Normal <0.01 [facility] Comment on above: Order Comment: Specimen Type: BLOOD SPEC IMENOrdering Facility: [facility] Address: [address] [place] [address] Performed By: #### 5 7021-8 ####[facility] LABORATORYCLIA [id number] [place] [id number] [place] Nucleated RBC/100 WBC (Bld) [Ratio] 0.0 /100 WBC Normal [facility] Comment on above: Order Comment: Specimen Type: BLOOD SPEC IMENOrdering Facility: [facility] Address: [address] [place] [address] Performed By: #### 5 7021-8 ####GEORGE LABORATORYCLIA [id number] [place] [address] [place] Platelet mean volume (Bld) [Entitic vol] 9.2 fL Normal 9.0-12.7 [facility] Comment on above: Order Comment: Specimen Type: BLOOD SPEC IMENOrdering Facility: [facility] Address: [address] [place] [address] Performed By: #### 5 7021-8 ####GEORGE LABORATORYCLIA [id number] [place] [address] [place] Platelets (Bld) [#/Vol] 431 10*3/uL High 150-400 [facility] Comment on above: Order Comment: Specimen Type: BLOOD SPEC IMENOrdering Facility: [facility] Address: [address] [place] [address] Performed By: #### 5 7021-8 ####GEORGE LABORATORYCLIA [id number] [place] [id number] [place] Platelets Estimate (Bld) [#/Vol] Increased Normal [facility] Comment on above: Order Comment: Specimen Type: BLOOD SPEC IMENOrdering Facility: [facility] Address: [address] [place] [address] Performed By: #### 5 7021-8 ####HUDSON LABORATORYCLIA [id number] [address] STATES [facility] RBC (Bld) [#/Vol] 4.07 10*6/uL Normal 3.90-5.20 [facility] Comment on above: Order Comment: Specimen Type: BLOOD SPEC IMENOrdering Facility: [facility] Address: [address] [place] [address] Performed By: #### 5 7021-8 ####HUDSON LABORATORYCLIA [id number] [address] RED CELL MORPH Reviewed: unremarkable Normal [facility] Comment on above: Order Comment: Specimen Type: BLOOD SPEC IMENOrdering Facility: [facility] Address: [address] [place] [address] Performed By: #### 5 7021-8 ####HUDSON LABORATORYCLIA [id number] [place] [address] [place] WBC (Bld) [#/Vol] 14.67 10*3/uL High 3.70-11.00 [facility] Comment on above: Order Comment: Specimen Type: BLOOD SPEC IMENOrdering Facility: [facility] Address: [address] [place] [address] Performed By: #### 5 7021-8 ####HUDSON LABORATORYCLIA [id number] [address] CONSULT PROGon 08-05-2023 CONSULT PROG HNO ID: [id number] Author: BRIE ROJO APRN.MEDICAL SCRIBE Service: Pain Management Author Type: Nurse Practitioner [...] OBJECTIVE PERTINENT ROS: ALLERGIES Allergen Reactions Adhes. Lqtq-Oypu-Xv* Rash Adhesive Tape-Silic* Rash Augmentin [Amoxicil* Diarrhea Keflex [Cephalexin] Rash, Itching Penicillins Hives Ultram [Tramadol Hc* Itching Information retrieved from Allergy section. Is the patient intubated and sedated? No. Numbness?: No Weakness?: No Nausea?: No Vomitting?: No Pruritis?: No Back pain?: No Headache?: No Sedation?: No Confusion/Delirium?: No Other: none Epidural Location: Thoracic Epidural catheter placed: Day of surgery MEDICATIONS: Epidural Medications and SOCIAL INSURANCE ANALYST Settings Bupivacaine 0.0625% + Fentanyl 2 mcg/mL [...] (CYMBALTA) 60 mg ORAL DAILY phenol 1 [place] (CHLORASEPTIC) 1 [place] MUCOUS MEMBRANE (TOPICAL MOUTH AND THROAT) q [...] SUBCUTANEOUS q (more content not included)... Normal [facility] HIGH SENSITIVITY TROPONIN To n 08-05-2023 Troponin T.cardiac High sensitivity method [Mass/Vol] <6 Normal <12 [facility] Comment on above: Order Comment: Specimen Type: BLOOD SPEC IMENOrdering Facility: [facility] Address: [address] [place], [place] [address] [address] Result Comment: When assessing risk for acute [...] MACE. Performed By: #### 2 4321-2, HSTNT ####HUDSON LABORATORYCLIA [id number] [address] NURSING PROGon 08-05-2023 NURSING PROG HNO ID: [id number] Author: DIANA PATHAK, SUSAN Service: Radiology Author Type: Registered Nurse Type: Nursing Progress Note Filed: 08/05/2023 11:42 Note Text: Nursing Progress Note Patient Name: Susi Ortiz Patient Location: [place] [address] [address] Daily Note: 1100: Called to floor for difficult IV access. #22g 2 inch IV started to right FA under US guidance. Flushes well with brisk blood return. This note was completed by: Diana Pathak [facility] NURSING PROG HNO ID: [id number] Author: KIRA VANCE RN Service: ? Author [...] urine. Epidural intact and infusing per AUG. 08: Called vascular access for a new peripheral IV access, pt is US placement. Vascular access at bedside and placed peripheral IV. [facility] PT EDon 08-05-2023 PT ED HNO ID: [id number] Author: TASNEEM GOOD RD Service: NST-Nutrition Support [...] August 05, 2023 TIME: 12:20 PM PAGER: [facility] ANES PRE-OPon 08-04-2023 ANES PRE-OP HNO ID: [id number] Author: AMANDA ALCANTAR DO Service: Anesthesiology Author [...] and consent discussed: yes. Patient / Responsible Alliance Party agrees to proceed: yes Patient / Surrogate [...] - montelukast (SINGULA (more content not included)... [facility] BRIEF OP NOTon 08-04-2023 BRIEF OP NOT HNO ID: [id number] Author: JOE GRANDA MD Service: General Surgery Author Type: Physician Type: Brief Op Note Filed: 08/04/2023 15:27 Note Text: BRIEF OPERATIVE NOTE [facility] LOG ID: [id number] SURGERY/PROCEDURE DATE: 08/04/2023 INCISION/PROCEDURE START TIME: 9:39 AM INCISION CLOSE/PROCEDURE END TIME: 2:39 PM SURGEON(S) AND AIRPLANE ELECTRICAL REPAIRER(S): Surgeon(s) and Role: * Joe Granda MD [...] DATE: August 04, 2023 TIME: 3:01 PM [id number] Joe Granda MD [facility] Basic metabolic 2000 panelon 08-04-2023 Anion gap [Moles/Vol] 13 mmol/L Normal -18 [facility] Comment on above: Order Comment: Specimen Type: BLOOD SPEC IMENOrdering Facility: [facility] Address: [address] [place] [address] Performed By: #### 1 9123-9, 48135-0, 2776-06 ####GEORGE LABORATORYCLIA [id number] [place] [address] [place] Calcium [Mass/Vol] 8.5 mg/dL Normal 8.5-10.2 [facility] Comment on above: Order Comment: Specimen Type: BLOOD SPEC IMENOrdering Facility: [facility] Address: [address] [place] [address] Performed By: #### 1 9123-9, 20844-0, 2776-06 ####GEORGE LABORATORYCLIA [id number] [place] [id number] [place] Chloride [Moles/Vol] 101 mmol/L Normal 97-105 [facility] Comment on above: Order Comment: Specimen Type: BLOOD SPEC IMENOrdering Facility: [facility] Address: [address] [place] [address] Performed By: #### 1 9123-9, 85605-1, 2776-06 ####GEORGE LABORATORYCLIA [id number] [place] [id number] [place] CO2 [Moles/Vol] 20 mmol/L Low 22-30 [facility] Comment on above: Order Comment: Specimen Type: BLOOD SPEC IMENOrdering Facility: [facility] Address: [address] [place] [address] Performed By: #### 1 9123-9, 64643-3, 2776-06 ####GEORGE LABORATORYCLIA [id number] [place] [id number] [place] Creatinine [Mass/Vol] 0.69 mg/dL Normal 0.58-0.96 [facility] Comment on above: Order Comment: Specimen Type: BLOOD SPEC IMENOrdering Facility: [facility] Address: [address] [place] [address] Performed By: #### 1 9123-9, 25715-9, 2776- ####GEORGE LABORATORYCLIA [id number] [place] [id number] [place] Creatinine and Glomerular filtration rate.predicted panel (S/P/Bld) 114 mL/min/1.73m??? Normal >=60 [facility] Comment on above: Order Comment: Specimen Type: BLOOD SPEC IMENOrdering Facility: [facility] Address: [address] [place] [address] Result Comment: Janet mated Glomerular Filtration Rate [...] actual GFR. Performed By: #### 1 9123-9, 30366-4, 2777- ####[facility] LABORATORYCLIA [id number] [place] [id number] [place] Glucose [Mass/Vol] 137 mg/dL High 74-99 [facility] Comment on above: Order Comment: Specimen Type: BLOOD SPEC IMENOrdering Facility: [facility] Address: [address] [place] [address] Result Comment: The [place] Diabetes Association (ADA) provides guidance for cutoff [...] Standards of Medical Care in Diabetes 2016, [place] Diabetes Association. Diabetes Care. 2016.39(Suppl 1). Performed By: #### 1 9123-9, 71275-2, 2777- ####[facility] LABORATORYCLIA [id number] [place] [id number] [place] Potassium [Moles/Vol] 5.1 mmol/L Normal 3.7-5.1 [facility] Comment on above: Order Comment: Specimen Type: BLOOD SPEC IMENOrdering Facility: [facility] Address: [address] [place] [address] Performed By: #### 1 9123-9, 52864-9, 2776- ####GEORGE LABORATORYCLIA [id number] [place] [id number] [place] Sodium [Moles/Vol] 134 mmol/L Low 136-144 [facility] Comment on above: Order Comment: Specimen Type: BLOOD SPEC IMENOrdering Facility: [facility] Address: [address] [place] [address] Performed By: #### 1 9123-9, 07241-3, 2776-06 ####[facility] LABORATORYCLIA [id number] [place] [address] [place] Urea nitrogen [Mass/Vol] 7 mg/dL Normal 7-21 [facility] Comment on above: Order Comment: Specimen Type: BLOOD SPEC IMENOrdering Facility: [facility] Address: [address] [place] [address] Performed By: #### 1 9123-9, 60951-8, 2776-06 ####GEORGE LABORATORYCLIA [id number] [place] [address] [place] CBC W Auto Differential pane l (Bld)on 08-04-2023 Basophils (Bld) [#/Vol] 0.06 10*3/uL Normal <0.11 [facility] Comment on above: Order Comment: Specimen Type: BLOOD SPEC IMENOrdering Facility: [facility] Address: [address] [place] [address] Performed By: #### 5 7021-8 ####[facility] LABORATORYCLIA [id number] [place] [id number] [place] Basophils/100 WBC (Bld) 0.3 % Normal [facility] Comment on above: Order Comment: Specimen Type: BLOOD SPEC IMENOrdering Facility: [facility] Address: [address] [place] [address] Performed By: #### 5 7021-8 ####[facility] LABORATORYCLIA [id number] [place] [id number] [place] Differential cell count method Nom (Bld) Auto Normal [facility] Comment on above: Order Comment: Specimen Type: BLOOD SPEC IMENOrdering Facility: [facility] Address: [address] [place] [address] Performed By: #### 5 7021-8 ####[facility] LABORATORYCLIA [id number] [place] [address] [place] Eosinophils (Bld) [#/Vol] 0.07 10*3/uL Normal <0.46 [facility] Comment on above: Order Comment: Specimen Type: BLOOD SPEC IMENOrdering Facility: [facility] Address: [address] [place] [address] Performed By: #### 5 7021-8 ####GEORGE LABORATORYCLIA [id number] [address] [place] Eosinophils/100 WBC (Bld) 0.4 % Normal [facility] Comment on above: Order Comment: Specimen Type: BLOOD SPEC IMENOrdering Facility: [facility] Address: [address] [place] [address] Performed By: #### 5 7021-8 ####GEORGE LABORATORYCLIA [id number] [address] [place] Erythrocyte distribution width (RBC) [Ratio] 14.2 % Normal 11.5-15.0 [facility] Comment on above: Order Comment: Specimen Type: BLOOD SPEC IMENOrdering Facility: [facility] Address: [address] [place] [address] Performed By: #### 5 7021-8 ####GEORGE LABORATORYCLIA [id number] [address] [place] Hematocrit (Bld) [Volume fraction] 40.3 % Normal 36.0-46.0 [facility] Comment on above: Order Comment: Specimen Type: BLOOD SPEC IMENOrdering Facility: [facility] Address: [address] [place] [address] Performed By: #### 5 7021-8 ####[facility] LABORATORYCLIA [id number] [place] [id number] [place] Hemoglobin (Bld) [Mass/Vol] 13.0 g/dL Normal 11.5-15.5 [facility] Comment on above: Order Comment: Specimen Type: BLOOD SPEC IMENOrdering Facility: [facility] Address: [address] [place] [address] Performed By: #### 5 7021-8 ####GEORGE LABORATORYCLIA [id number] [place] [id number] [place] Immature granulocytes (Bld) [#/Vol] 0.05 10*3/uL Normal <0.10 [facility] Comment on above: Order Comment: Specimen Type: BLOOD SPEC IMENOrdering Facility: [facility] Address: [address] [place] [address] Performed By: #### 5 7021-8 ####[facility] LABORATORYCLIA [id number] [place] [address] [place] Immature granulocytes/100 WBC (Bld) 0.3 % Normal [facility] Comment on above: Order Comment: Specimen Type: BLOOD SPEC IMENOrdering Facility: [facility] Address: [address] [place] [address] Performed By: #### 5 7021-8 ####GEORGE LABORATORYCLIA [id number] [place] [id number] [place] Lymphocytes (Bld) [#/Vol] 1.82 10*3/uL Normal 1.00-4.00 [facility] Comment on above: Order Comment: Specimen Type: BLOOD SPEC IMENOrdering Facility: [facility] Address: [address] [place] [address] Performed By: #### 5 7021-8 ####[facility] LABORATORYCLIA [id number] [place] [id number] [place] Lymphocytes/100 WBC (Bld) 9.7 % Normal [facility] Comment on above: Order Comment: Specimen Type: BLOOD SPEC IMENOrdering Facility: [facility] Address: [address] [place] [address] Performed By: #### 5 7021-8 ####[facility] LABORATORYCLIA [id number] [address] MCH (RBC) [Entitic mass] 29.4 pg Normal 26.0-34.0 [facility] Comment on above: Order Comment: Specimen Type: BLOOD SPEC IMENOrdering Facility: [facility] Address: [address] [place] [address] Performed By: #### 5 7021-8 ####[facility] LABORATORYCLIA [id number] [address] MCHC (RBC) [Mass/Vol] 32.3 g/dL Normal 30.5-36.0 [facility] Comment on above: Order Comment: Specimen Type: BLOOD SPEC IMENOrdering Facility: [facility] Address: [address] [place] [address] Performed By: #### 5 7021-8 ####[facility] LABORATORYCLIA [id number] [address] [place] MCV (RBC) [Entitic vol] 91.2 fL Normal 80.0-100.0 [facility] Comment on above: Order Comment: Specimen Type: BLOOD SPEC IMENOrdering Facility: [facility] Address: [address] [place] [address] Performed By: #### 5 7021-8 ####[facility] LABORATORYCLIA [id number] [address] OF [place] Monocytes (Bld) [#/Vol] 1.16 10*3/uL High <0.87 [facility] Comment on above: Order Comment: Specimen Type: BLOOD SPEC IMENOrdering Facility: [facility] Address: [address] [place] [address] Performed By: #### 5 7021-8 ####[facility] LABORATORYCLIA [id number] [address] [place] Monocytes/100 WBC (Bld) 6.2 % Normal [facility] Comment on above: Order Comment: Specimen Type: BLOOD SPEC IMENOrdering Facility: [facility] Address: [facility] [place] [address] Performed By: #### 5 7021-8 ####[facility] LABORATORYCLIA [id number] [place] [address] [place] Neutrophils (Bld) [#/Vol] 15.62 10*3/uL High 1.45-7.50 [facility] Comment on above: Order Comment: Specimen Type: BLOOD SPEC IMENOrdering Facility: [facility] Address: [address] [place] [address] Performed By: #### 5 7021-8 ####GEORGE LABORATORYCLIA [id number] [place] [id number] [place] Neutrophils/100 WBC (Bld) 83.1 % Normal [facility] Comment on above: Order Comment: Specimen Type: BLOOD SPEC IMENOrdering Facility: [facility] Address: [address] [place] [address] Performed By: #### 5 7021-8 ####[facility] LABORATORYCLIA [id number] [place] [id number] [place] Nucleated RBC (Bld) [#/Vol] 10*3/uL Normal <0.01 [facility] Comment on above: Order Comment: Specimen Type: BLOOD SPEC IMENOrdering Facility: [facility] Address: [address] [place] [address] Performed By: #### 5 7021-8 ####GEORGE LABORATORYCLIA [id number] [place] [id number] [place] Nucleated RBC/100 WBC (Bld) [Ratio] 0.0 /100 WBC Normal [facility] Comment on above: Order Comment: Specimen Type: BLOOD SPEC IMENOrdering Facility: [facility] Address: [address] [place] [address] Performed By: #### 5 7021-8 ####GEORGE LABORATORYCLIA [id number] [place] [id number] [place] Platelet mean volume (Bld) [Entitic vol] 9.2 fL Normal 9.0-12.7 [facility] Comment on above: Order Comment: Specimen Type: BLOOD SPEC IMENOrdering Facility: [facility] Address: [address] [place] [address] Performed By: #### 5 7021-8 ####HUDSON LABORATORYCLIA [id number] [place] [id number] [place] Platelets (Bld) [#/Vol] 502 10*3/uL High 150-400 [facility] Comment on above: Order Comment: Specimen Type: BLOOD SPEC IMENOrdering Facility: [facility] Address: [address] [place] [address] Performed By: #### 5 7021-8 ####[facility] LABORATORYCLIA [id number] [place] [id number] [place] RBC (Bld) [#/Vol] 4.42 10*6/uL Normal 3.90-5.20 [facility] Comment on above: Order Comment: Specimen Type: BLOOD SPEC IMENOrdering Facility: [facility] Address: [address] [place] [address] Performed By: #### 5 7021-8 ####HUDSON LABORATORYCLIA [id number] [place] [id number] [place] WBC (Bld) [#/Vol] 18.78 10*3/uL High 3.70-11.00 [facility] Comment on above: Order Comment: Specimen Type: BLOOD SPEC IMENOrdering Facility: [facility] Address: [address] [place] [address] Performed By: #### 5 7021-8 ####HU[facility]ON LABORATORYCLIA [id number] [place] [id number] [facility] [place] HIGH SENSITIVITY TROPONIN To n 08-04-2023 Troponin T.cardiac High sensitivity method [Mass/Vol] 7 ng/L Normal <12 [facility] Comment on above: Order Comment: Specimen Type: BLOOD SPEC IMENOrdering Facility: [facility] Address: [address], [place] [address] Result Comment: When assessing risk for acute [...] day MACE. Performed By: #### H STNT ####HUDSON LABORATORYCLIA [id number] [place] [id number] [facility] [place] Magnesium SerPl-mCncon 08-04 Magnesium [Mass/Vol] 1.8 mg/dL Normal 1.7-2.3 [facility] Comment on above: Order Comment: Specimen Type: BLOOD SPEC IMENOrdering Facility: [facility] Address: [address] [place] [address] Performed By: #### 1 9123-9, 86241-7, 2777-1 ####[facility]ON LABORATORYCLIA [id number] [place] [id number] [place] NURSING PROGon 08-04-2023 NURSING PROG HNO ID: [id number] Author: KIRA VANCE RN Service: ? Author Type: Registered Nurse Type: Nursing Progress Note Filed: 08/04/2023 17:06 Note Text: Transfer Note: PATIENT NAME: Susi Ortiz Patient Location: [place] [address] [address] Room: [place] [address] Patient transferred into room/unit [facility] in stable condition. Actions taken: No futher actions taken at this time. Will continue to monitor and check with patient. 1705: Sent text page to surgical team, pt has epidural and need order for tele and pulse ox. Normal [facility] NURSING PROG HNO ID: [id number] Author: KINGA HERNANDEZ, SUSAN Service: Nursing Author Type: Registered Nurse Type: Nursing Progress Note Filed: 08/04/2023 07:38 Note Text: 0700- Patient refusing PANCHO hose and SCDs at this time. 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 Normal [facility] NURSING PROG HNO ID: [id number] Author: KIEL MALONEY, SUSAN Service: Pain Management Author Type: Registered Nurse Type: Nursing Progress Note Filed: 08/04/2023 08:16 Note Text: THORACIC EPIDURAL ( T8) Dr. Lopez and Dr. Wiggins Patient verbalized understanding of epidural procedure. Patient tolerated procedure very well. [facility] NURSING PROG HNO ID: [id number] Author: KINGA HERNANDEZ RN Service: Nursing Author Type: Registered Nurse Type: Nursing Progress Note Filed: 08/04/2023 06:40 Note Text: PATIENT EDUCATION TOPIC: PROCEDURE / SURGERY: Pre-op Teaching: Surgical Safety Principles PATIENT NAME: Susi Ortiz PATIENT LOCATION: [place] [address]/[place] [address] READINESS TO LEARN COGNITIVE ABILITY: Alert and [...] (RECOMMENDATION): None Electronically Signed By: Kinga Hernandez [facility] OPERATIVE NOon 08-04-2023 OPERATIVE NO HNO ID: [id number] Author: JOE GRANDA MD Service: General Surgery Author Type: Physician Type: Operative Report Filed: 08/05/2023 15:18 Note Text: [facility] - Operative Report SUSI ORTIZ : 1985 AGE: 38. SEX: F PATIENT TYPE: I HOSP SVC: Surgical LOCATION: [facility] ATTENDING PHYSICIAN: Joe Granda M.D. CSN NUMBER: [id number] DATE OF SURGERY/PROCEDURE: 08/04/2023 INCISION/PROCEDURE START TIME: 9:39 AM INCISION CLOSE/PROCEDURE END TIME: 2:39 PM PREOPERATIVE DIAGNOSIS: 1. Persistent morbid obesity. 2. 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 3. History of open splenectomy. POSTOPERATIVE DIAGNOSIS: 1. Persistent morbid obesity. 2. 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 3. History of open splenectomy. SURGEON: Joe Granda M.D. AIRPLANE ELECTRICAL REPAIRER: 1. Cony Soler MD. 2. Som Hampton [...] during the duodenal dissection. Joe Granda M.D. ESTEFANIA:[id number] /[id number] D: (more content not included)... Normal [facility] Phosphate SerPl-mCncon 08-04 Phosphate [Mass/Vol] 3.9 mg/dL Normal 2.7-4.8 [facility] Comment on above: Order Comment: Specimen Type: BLOOD SPEC IMENOrdering Facility: [facility] Address: [address] [place] [id number] Performed By: #### 1 9123-9, 77511-6, 2777-1 ####[facility] [id number] [address] Nick 08-03-2023 CNPN Telephone (GENBMI) SUSI ORTIZ ([id number]) 1985 F FNS Date Time Provider Department 08/03/23 SILVIA CURRY During your visit today, we recorded the following information about you: Silvia Curry, RN 08/03/2023 5:00 PM Signed [facility] COORDINATION SURGERY PRE-OP EDUCATION NOTE Phoned patient to reinforce prior pre-op instruction and answer any questions she might have. No answer. Left brief vmm including contact info for this RN and requested call back. Allergies As of Date: 08/03/2023 Noted Allergy Reaction ADHES. [id number] 03/13/2015 2 - Rash ADHESIVE TAPE-SILICONES 05/06/2019 [...] SILVIA CURRY on 08/03/23 Normal [facility] HISTORY PHYSICALon HISTORY PHYSICAL HNO ID: [id number] Author: NONI SUMMERS APRN.CNP Service: ? Author Type: Nurse Practitioner [...] body mass index of 60.0-69.9 in adult ([facility]) Assessment: Body mass index is 66.6 kg/m?. TONEY on CPAP Assessment: Noncompliant with CPAP Thrombocytosis ([facility]) Assessment: chronic leukocytosis and thrombocytosis Most recent labs CBC with diff: WBC 13.23 07/13/2023 Platelet Count 555 07/13/2023 Bipolar affective disorder ([facility]) Assessment: managed on medication by PCP and [...] (more content not included)... Normal [facility] TYPE AND SCREEN,30 DAYon ABO A Normal [facility] Comment on above: Order Comment: Specimen Type: BLOOD SPEC IMEN Ordering Facility: [facility] Address: [address] [place] [address] Performed By: #### 2 284-8, 27308, 2132-02 #### [facility] CLIA [id number] [address] [place] [address] [place] HISTORICAL AB SCR STATUS Negative Normal [facility] Comment on above: Order Comment: Specimen Type: BLOOD SPEC IMEN Ordering Facility: [facility] Address: [address] [place] [address] Performed By: #### 2 284-8, 2730-8, 2132-02 #### [facility] CLIA [id number] [address] [place] [address] [place] Rh Nom (Bld) Positive Normal [facility] Comment on above: Order Comment: Specimen Type: BLOOD SPEC IMEN Ordering Facility: [facility] Address: [address] [place] [address] Performed By: #### 2 284-8, 8328, 2132-02 #### [facility] CLIA [id number] [address] [place] [address] [place] CNOVon 07-20-2023 CNOV Office Visit (BMIREJ ) SUSI ORTIZ ([id number]) 1985 F FNS Date Time Provider Department 07/20/23 11:50 AM JOE GRANDA During your visit today, we recorded the following information about you: Pulse Blood pressure Weight Height 77/minute 121/78 175 kg 1.626 m Last Period 07/08/23 Joe Granda MD 07/20/2023 2:06 PM Signed SURGERY PREOPERATIVE VISIT NOTE Name: Susi Ortiz Medical Record: [id number] Encounter No.: [id number] Susi Ortiz is a 38 year old [...] SLEEVE GASTRECTOMY 2017 NEUROPLASTY AND/TRANSPOS MEDIAN NRV MARIA ELENAAL SANGEETAE 2008;2009 bilateral S PROBE PERC LUMBAR DISCECTOMY [...] use: Never ALLERGIES: ALLERGIES Allergen Reactions Adhes. Uice-Jmpw-Vb* Rash Adhesive Tape-Silic* Rash Augmentin [Amoxicil* Diarrhea [...] regarding unsatisfactory weight loss as well as mcc weight regain. I have also discussed medical complications including urinary tract infections, myocardial infarction, DVT, PE, prolonged ICU stay, and possible postoperative mechanical ventilation and the risk of mortality. I have reviewed with this patient needed nutritional changes, post-operative recovery, and the potential (more content not included)... Normal [facility] CBC W Auto Differential pane l (Bld)on 07-13-2023 Basophils (Bld) [#/Vol] 0.11 10*3/uL High <0.11 [facility] Comment on above: Order Comment: Specimen Type: BLOOD SPEC IMENOrdering Facility: [facility] Address: [address] [place] [address] Performed By: #### 5 7021-8 ####[facility] LABCLIA [id number] [place] [address] Basophils/100 WBC (Bld) 0.8 % Normal [facility] Comment on above: Order Comment: Specimen Type: BLOOD SPEC IMENOrdering Facility: [facility] Address: [address] [place] [address] Performed By: #### 5 7021-8 ####[facility] LABCLIA [id number] [place] [address] Differential cell count method Nom (Bld) Auto Normal [facility] Comment on above: Order Comment: Specimen Type: BLOOD SPEC IMENOrdering Facility: [facility] Address: [address] [place] [address] Performed By: #### 5 7021-8 ####[facility] LABCLIA [id number] [place] [address] Eosinophils (Bld) [#/Vol] 0.31 10*3/uL Normal <0.46 [facility] Comment on above: Order Comment: Specimen Type: BLOOD SPEC IMENOrdering Facility: [facility] Address: [address] [place] [address] Performed By: #### 5 7021-8 ####[facility] LABCLIA [id number] [place] [address] Eosinophils/100 WBC (Bld) 2.3 % Normal [facility] Comment on above: Order Comment: Specimen Type: BLOOD SPEC IMENOrdering Facility: [facility] Address: [address] [place] [address] Performed By: #### 5 7021-8 ####[facility] LABCLIA [id number] [place] [address] Erythrocyte distribution width (RBC) [Ratio] 14.1 % Normal 11.5-15.0 [facility] Comment on above: Order Comment: Specimen Type: BLOOD SPEC IMENOrdering Facility: [facility] Address: [address] [place] [address] Performed By: #### 5 7021-8 ####[facility] LABCLIA [id number] [place] [address] Hematocrit (Bld) [Volume fraction] 45.8 % Normal 36.0-46.0 [facility] Comment on above: Order Comment: Specimen Type: BLOOD SPEC IMENOrdering Facility: [facility] Address: [address] [place] [address] Performed By: #### 5 7021-8 ####[facility] LABCLIA [id number] [place] [address] Hemoglobin (Bld) [Mass/Vol] 14.7 g/dL Normal 11.5-15.5 [facility] Comment on above: Order Comment: Specimen Type: BLOOD SPEC IMENOrdering Facility: [facility] Address: [address] [place] [address] Performed By: #### 5 7021-8 ####[facility] LABCLIA [id number] [place] [address] Immature granulocytes (Bld) [#/Vol] 0.05 10*3/uL Normal <0.10 [facility] Comment on above: Order Comment: Specimen Type: BLOOD SPEC IMENOrdering Facility: [facility] Address: [address] [place] [address] Performed By: #### 5 7021-8 ####[facility] LABCLIA [id number] [place] [address] Immature granulocytes/100 WBC (Bld) 0.4 % Normal [facility] Comment on above: Order Comment: Specimen Type: BLOOD SPEC IMENOrdering Facility: [facility] Address: [address] [place] [address] Performed By: #### 5 7021-8 ####[facility] LABCLIA [id number] [place] [address] Lymphocytes (Bld) [#/Vol] 3.61 10*3/uL Normal 1.00-4.00 [facility] Comment on above: Order Comment: Specimen Type: BLOOD SPEC IMENOrdering Facility: [facility] Address: [address] [place] [address] Performed By: #### 5 7021-8 ####[facility] LABCLIA [id number] [place] [address] Lymphocytes/100 WBC (Bld) 27.3 % Normal [facility] Comment on above: Order Comment: Specimen Type: BLOOD SPEC IMENOrdering Facility: [facility] Address: [address] [place] [address] Performed By: #### 5 7021-8 ####[facility] LABCLIA [id number] [place] [address] MCH (RBC) [Entitic mass] 28.9 pg Normal 26.0-34.0 [facility] Comment on above: Order Comment: Specimen Type: BLOOD SPEC IMENOrdering Facility: [facility] Address: [address] [place] [address] Performed By: #### 5 7021-8 ####[facility] LABCLIA [id number] [place] [address] MCHC (RBC) [Mass/Vol] 32.1 g/dL Normal 30.5-36.0 [facility] Comment on above: Order Comment: Specimen Type: BLOOD SPEC IMENOrdering Facility: [facility] Address: [address] [place] [address] Performed By: #### 5 7021-8 ####[facility] LABCLIA [id number] [place] [address] MCV (RBC) [Entitic vol] 90.0 fL Normal 80.0-100.0 [facility] Comment on above: Order Comment: Specimen Type: BLOOD SPEC IMENOrdering Facility: [facility] Address: [address] [place] [address] Performed By: #### 5 7021-8 ####[facility] LABCLIA [id number] [place] [address] Monocytes (Bld) [#/Vol] 1.10 10*3/uL High <0.87 [facility] Comment on above: Order Comment: Specimen Type: BLOOD SPEC IMENOrdering Facility: [facility] Address: [address] [place] [address] Performed By: #### 5 7021-8 ####[facility] LABCLIA [id number] [place] [address] Monocytes/100 WBC (Bld) 8.3 % Normal [facility] Comment on above: Order Comment: Specimen Type: BLOOD SPEC IMENOrdering Facility: [facility] Address: [address] [place] [address] Performed By: #### 5 7021-8 ####[facility] LABCLIA [id number] [place] [address] Neutrophils (Bld) [#/Vol] 8.05 10*3/uL High 1.45-7.50 [facility] Comment on above: Order Comment: Specimen Type: BLOOD SPEC IMENOrdering Facility: [facility] Address: [address] [place] [address] Performed By: #### 5 7021-8 ####[facility] LABCLIA [id number] [place] [address] Neutrophils/100 WBC (Bld) 60.9 % Normal [facility] Comment on above: Order Comment: Specimen Type: BLOOD SPEC IMENOrdering Facility: [facility] Address: [address] [place] [address] Performed By: #### 5 7021-8 ####[facility] LABCLIA [id number] [place] [address] Nucleated RBC (Bld) [#/Vol] 10*3/uL Normal <0.01 [facility] Comment on above: Order Comment: Specimen Type: BLOOD SPEC IMENOrdering Facility: [facility] Address: [address] [place] [address] Performed By: #### 5 7021-8 ####[facility] LABIA [id number] [place] [address] Nucleated RBC/100 WBC (Bld) [Ratio] 0.0 /100 WBC Normal [facility] Comment on above: Order Comment: Specimen Type: BLOOD SPEC IMENOrdering Facility: [facility] Address: [address] [place] [address] Performed By: #### 5 7021-8 ####[facility] LABIA [id number] [place] [address] Platelet mean volume (Bld) [Entitic vol] 9.1 fL Normal 9.0-12.7 [facility] Comment on above: Order Comment: Specimen Type: BLOOD SPEC IMENOrdering Facility: [facility] Address: [address] [place] [address] Performed By: #### 5 7021-8 ####[facility] LABIA [id number] [place] [address] Platelets (Bld) [#/Vol] 555 10*3/uL High 150-400 [facility] Comment on above: Order Comment: Specimen Type: BLOOD SPEC IMENOrdering Facility: [facility] Address: [address] [place] [address] Performed By: #### 5 7021-8 ####[facility] LABCLIA [id number] [place] [address] RBC (Bld) [#/Vol] 5.09 10*6/uL Normal 3.90-5.20 [facility] Comment on above: Order Comment: Specimen Type: BLOOD SPEC IMENOrdering Facility: [facility] Address: [address] [place] [address] Performed By: #### 5 7021-8 ####[facility] LABCLIA [id number] [place] [address] WBC (Bld) [#/Vol] 13.23 10*3/uL High 3.70-11.00 [facility] Comment on above: Order Comment: Specimen Type: BLOOD SPEC IMENOrdering Facility: [facility] Address: [address] [place] [address] Performed By: #### 5 7021-8 ####[facility] LABCLIA [id number] [place] [address] Comprehensive metabolic 2000 panelon 07-13-2023 Albumin [Mass/Vol] 4.5 g/dL Normal 3.9-4.9 [facility] Comment on above: Order Comment: Specimen Type: BLOOD SPEC IMEN Ordering Facility: [facility] Address: [address] [place] [address] Performed By: #### 2 284-8, 2730-8, 2132-02 #### [facility] CLIA [id number] [address] [facility] [place] [address] [place] ALP [Catalytic activity/Vol] 124 U/L High 34-123 [facility] Comment on above: Order Comment: Specimen Type: BLOOD SPEC IMEN Ordering Facility: [facility] Address: [address] [place] [address] Performed By: #### 2 284-8, 2731-8, 2132-02 #### [facility] CLIA [id number] [address] [place], [place] [address] [place] ALT [Catalytic activity/Vol] 18 U/L Normal 7-38 [facility] Comment on above: Order Comment: Specimen Type: BLOOD SPEC IMEN Ordering Facility: [facility] Address: [address] [place] [address] Performed By: #### 2 284-8, 2731-01, 2132-02 #### [facility] CLIA [id number] [address] [place] [address] [place] Anion gap [Moles/Vol] 11 mmol/L Normal 9-18 [facility] Comment on above: Order Comment: Specimen Type: BLOOD SPEC IMEN Ordering Facility: [facility] Address: [address] [place] [address] Performed By: #### 2 284-8, 2731-01, 2132-02 #### [facility] CLIA [id number] [address] [place] [address] [place] AST [Catalytic activity/Vol] 21 U/L Normal 13-35 [facility] Comment on above: Order Comment: Specimen Type: BLOOD SPEC IMEN Ordering Facility: [facility] Address: [address] [place] [address] Performed By: #### 2 284-8, 8, 2132-02 #### [facility] CLIA [id number] [address] [place] [address] [place] Bilirubin [Mass/Vol] 0.3 mg/dL Normal 0.2-1.3 [facility] Comment on above: Order Comment: Specimen Type: BLOOD SPEC IMEN Ordering Facility: [facility] Address: [address] [place] [address] Performed By: #### 2 284-8, 8, 2132-02 #### [facility] CLIA [id number] [address] [place] [address] [place] Calcium [Mass/Vol] 10.0 mg/dL Normal 8.5-10.2 [facility] Comment on above: Order Comment: Specimen Type: BLOOD SPEC IMEN Ordering Facility: [facility] Address: [address] [place] [address] Performed By: #### 2 284-8, 2731-8, 2132-02 #### [facility] CLIA [id number] [address] [place] [address] [place] Chloride [Moles/Vol] 101 mmol/L Normal 97-105 [facility] Comment on above: Order Comment: Specimen Type: BLOOD SPEC IMEN Ordering Facility: [facility] Address: [address] [place] [address] Performed By: #### 2 284-8, 2730-8, 2132-02 #### [facility] CLIA [id number] [address] [place] [address] [place] CO2 [Moles/Vol] 25 mmol/L Normal 22-30 [facility] Comment on above: Order Comment: Specimen Type: BLOOD SPEC IMEN Ordering Facility: [facility] Address: [address] [place] [address] Performed By: #### 2 284-8, 2730-8, 2132-02 #### [facility] CLIA [id number] [address] [place] [address] [place] Creatinine [Mass/Vol] 0.73 mg/dL Normal 0.58-0.96 [facility] Comment on above: Order Comment: Specimen Type: BLOOD SPEC IMEN Ordering Facility: [facility] Address: [address] [place] [address] Performed By: #### 2 284-8, 273-8, 2132-02 #### [facility] CLIA [id number] [address] [place] [address] [place] Creatinine and Glomerular filtration rate.predicted panel (S/P/Bld) 108 mL/min/1.73m??? Normal >=60 [facility] Comment on above: Order Comment: Specimen Type: BLOOD SPEC IMEN Ordering Facility: [facility] Address: [address] [place] [address] Result Comment: Janet mated Glomerular Filtration Rate [...] By: #### 2 284-8, 8, 2132-02 #### [facility] CLIA [id number] [address] [place] [address] [place] Glucose [Mass/Vol] 115 mg/dL High 74-99 [facility] Comment on above: Order Comment: Specimen Type: BLOOD SPEC IMEN Ordering Facility: [facility] Address: [address] [place] [address] Result Comment: The [place] Diabetes Association (ADA) provides guidance for cutoff [...] Standards of Medical Care in Diabetes 2016, [place] [employer]. Diabetes Care. 2016.39(Suppl 1). Performed By: #### 2 284-8, 2730-8, 2132-02 #### [facility] CLIA [id number] [address] [place] [address] [place] Potassium [Moles/Vol] 4.3 mmol/L Normal 3.7-5.1 [facility] Comment on above: Order Comment: Specimen Type: BLOOD SPEC IMEN Ordering Facility: [facility] Address: [address] [place] [address] Performed By: #### 2 284-8, 273-8, 2132-02 #### [facility] CLIA [id number] [address] [place] [address] [place] Protein [Mass/Vol] 8.1 g/dL High 6.3-8.0 [facility] Comment on above: Order Comment: Specimen Type: BLOOD SPEC IMEN Ordering Facility: [facility] Address: [address] [place] [address] Performed By: #### 2 284-8, 273-8, 2132-02 #### [facility] CLIA [id number] [address] [place] [address] [place] Sodium [Moles/Vol] 137 mmol/L Normal 136-144 [facility] Comment on above: Order Comment: Specimen Type: BLOOD SPEC IMEN Ordering Facility: [facility] Address: [address] [place] [address] Performed By: #### 2 284-8, 273-8, 2132-02 #### [facility] CLIA [id number] [address] [place] [address] [place] Urea nitrogen [Mass/Vol] 10 mg/dL Normal 7-21 [facility] Comment on above: Order Comment: Specimen Type: BLOOD SPEC IMEN Ordering Facility: [facility] Address: [address] [place] [address] Performed By: #### 2 284-8, 273-8, 2132-02 #### [facility] CLIA [id number] [address] [place] [address] [place] CNPShanon 04-27-2023 KATTYN Telephone (BMIREJ) ORTIZSUSI ([id number]) 1985 F FNS Date Time Provider Department 04/27/23 JOE GRANDA BMIREJ During your visit today, [...] of Date: 04/27/2023 Noted Allergy Reaction ADHES. [id number] 03/13/2015 2 - Rash ADHESIVE TAPE-SILICONES 05/06/2019 [...] JOE GRANDA on 04/27/23 Normal [facility] Basic metabolic 2000 panelon 04-01-2023 Anion gap [Moles/Vol] 10 mmol/L Normal 9-18 [facility] Comment on above: Order Comment: Specimen Type: BLOOD SPEC IMENOrdering Facility: [facility] Address: [address] [place] [address] Performed By: #### 2 4321-2 ####[facility] [id number] [place] [address] [place] Calcium [Mass/Vol] 9.1 mg/dL Normal 8.5-10.2 [facility] Comment on above: Order Comment: Specimen Type: BLOOD SPEC IMENOrdering Facility: [facility] Address: [address] [address] Performed By: #### 2 4321-2 ####[facility] [id number] [place] [address] [place] Chloride [Moles/Vol] 102 mmol/L Normal 97-105 [facility] Comment on above: Order Comment: Specimen Type: BLOOD SPEC IMENOrdering Facility: [facility] Address: [address] [address] Performed By: #### 2 4321-2 ####[facility] [id number] [place] [address] [place] CO2 [Moles/Vol] 25 mmol/L Normal 22-30 [facility] Comment on above: Order Comment: Specimen Type: BLOOD SPEC IMENOrdering Facility: [facility] Address: [address] [address] Performed By: #### 2 4321-2 ####[facility] [id number] [place] [address] [place] Creatinine [Mass/Vol] 0.59 mg/dL Normal 0.58-0.96 [facility] Comment on above: Order Comment: Specimen Type: BLOOD SPEC IMENOrdering Facility: [facility] Address: [address] [address] Performed By: #### 2 4321-2 ####[facility] [id number] [place] [id number] [place] Creatinine and Glomerular filtration rate.predicted panel (S/P/Bld) 119 mL/min/1.73m??? Normal >=60 [facility] Comment on above: Order Comment: Specimen Type: BLOOD SPEC IMENOrdering Facility: [facility] Address: [address] [place] [address] Result Comment: Janet mated Glomerular Filtration Rate [...] actual GFR. Performed By: #### 2 4321-2 ####[facility] [id number] [place] [address] [place] Glucose [Mass/Vol] 130 mg/dL High 74-99 [facility] Comment on above: Order Comment: Specimen Type: BLOOD SPEC IMENOrdering Facility: [facility] Address: [address] [place] [address] Result Comment: The [place] Diabetes Association (ADA) provides guidance for cutoff [...] Standards of Medical Care in Diabetes 2016, [place] [employer]. Diabetes Care. 2016.39(Suppl 1). Performed By: #### 2 4321-2 ####[facility] [id number] [place] [id number] [place] Potassium [Moles/Vol] 4.2 mmol/L Normal 3.7-5.1 [facility] Comment on above: Order Comment: Specimen Type: BLOOD SPEC IMENOrdering Facility: [facility] Address: [address] [address] Performed By: #### 2 4321-2 ####[facility] LABORATORYCLIA [id number] [place] [id number] [facility] Sodium [Moles/Vol] 137 mmol/L Normal 136-144 [facility] Comment on above: Order Comment: Specimen Type: BLOOD SPEC IMENOrdering Facility: [facility] Address: [address] [address] Performed By: #### 2 4321-2 ####[facility] LABORATORYCLIA [id number] [address] [facility] Urea nitrogen [Mass/Vol] 5 mg/dL Low 7-21 [facility] Comment on above: Order Comment: Specimen Type: BLOOD SPEC IMENOrdering Facility: [facility] Address: [address] [address] Performed By: #### 2 4321-2 ####[facility] LABORATORYCLIA [id number] [address] [place] CBC panel Auto (Bld)on 04-01 Erythrocyte distribution width (RBC) [Ratio] 15.1 % High 11.5-15.0 [facility] Comment on above: Order Comment: Specimen Type: BLOOD SPEC IMENOrdering Facility: [facility] Address: [address] [address] Performed By: #### 5 8410-2 ####[facility] LABORATORYCLIA [id number] [address] Hematocrit (Bld) [Volume fraction] 39.2 % Normal 36.0-46.0 [facility] Comment on above: Order Comment: Specimen Type: BLOOD SPEC IMENOrdering Facility: [facility] Address: [address] [address] Performed By: #### 5 8410-2 ####[facility] LABORATORYCLIA [id number] [address] Hemoglobin (Bld) [Mass/Vol] 12.7 g/dL Normal 11.5-15.5 [facility] Comment on above: Order Comment: Specimen Type: BLOOD SPEC IMENOrdering Facility: [facility] Address: [address] [address] Performed By: #### 5 8410-2 ####[facility] LABORATORYCLIA [id number] [address] MCH (RBC) [Entitic mass] 29.3 pg Normal 26.0-34.0 [facility] Comment on above: Order Comment: Specimen Type: BLOOD SPEC IMENOrdering Facility: [facility] Address: [address] [place] [address] Performed By: #### 5 8410-2 ####[facility] LABORATORYCLIA [id number] [address] MCHC (RBC) [Mass/Vol] 32.4 g/dL Normal 30.5-36.0 [facility] Comment on above: Order Comment: Specimen Type: BLOOD SPEC IMENOrdering Facility: [facility] Address: [address] [place] [address] Performed By: #### 5 8410-2 ####[facility]ORY[facility] [id number] [address] MCV (RBC) [Entitic vol] 90.3 fL Normal 80.0-100.0 [facility] Comment on above: Order Comment: Specimen Type: BLOOD SPEC IMENOrdering Facility: [facility] Address: [address] [address] Performed By: #### 5 8410-2 ####[facility] LABORATORYCLIA [id number] [address] Nucleated RBC (Bld) [#/Vol] 10*3/uL Normal <0.01 [facility] Comment on above: Order Comment: Specimen Type: BLOOD SPEC IMENOrdering Facility: [facility] Address: [address] [place] [address] Performed By: #### 5 8410-2 ####[facility] LABORATORYCLIA [id number] [place] [id number] [place] Platelet mean volume (Bld) [Entitic vol] 9.7 fL Normal 9.0-12.7 [facility] Comment on above: Order Comment: Specimen Type: BLOOD SPEC IMENOrdering Facility: [facility] Address: [address] [place] [address] Performed By: #### 5 8410-2 ####[facility] LABORATORYCLIA [id number] [place] [id number] [place] Platelets (Bld) [#/Vol] 463 10*3/uL High 150-400 [facility] Comment on above: Order Comment: Specimen Type: BLOOD SPEC IMENOrdering Facility: [facility] Address: [address] [place] [address] Performed By: #### 5 8410-2 ####[facility]ORATORYCLIA [id number] [address] [place] RBC (Bld) [#/Vol] 4.34 10*6/uL Normal 3.90-5.20 [facility] Comment on above: Order Comment: Specimen Type: BLOOD SPEC IMENOrdering Facility: [facility] Address: [address] [place] [address] Performed By: #### 5 8410-2 ####[facility] LABORATORYCLIA [id number] [place] [id number] [place] WBC (Bld) [#/Vol] 15.94 10*3/uL High 3.70-11.00 [facility] Comment on above: Order Comment: Specimen Type: BLOOD SPEC IMENOrdering Facility: [facility] Address: [address] [place] [address] Performed By: #### 5 8410-2 ####[facility] LABORATORYCLIA [id number] [place] [id number] [facility] [place] NURSING PROGon 04-01-2023 NURSING PROG HNO ID: [id number] Author: Susi Ruffin RN Service: Nursing Author Type: Registered Nurse Type: Nursing Progress Note Filed: 04/01/2023 4:52 PM Note Text: Daily Note 1645 Pt discharged in stable condition and all of belongings left with pt. Discussed discharge paperwork, follow-up appointments, and clarified questions. IV removed and transport called to wheel pt out. [facility] NURSING PROG HNO ID: [id number] Author: Hina Monet RN Service: ? Author Type: Registered Nurse Type: Nursing Progress Note Filed: 04/01/2023 3:24 AM Note Text: Pt tolerating clears. Given oxycodone twice tonight for abd pain. States passing flatus. up to BR with standby assist. Steady, stable. [facility] PT EDon 04-01-2023 PT ED HNO ID: [id number] Author: Tasneem Good RD Service: NST-Nutrition Support [...] April 01, 2023 TIME: 12:23 PM PAGER: [facility] ANES POSTPROC EVALon 023 ANES POSTPROC EVAL HNO ID: [id number] Author: Darrel Conklin MD Service: Anesthesiology Author [...] March 31, 2023 TIME: 2:40 PM CSN: [id number] [facility] ANES PRE-OPon 03-31-2023 ANES PRE-OP HNO ID: [id number] Author: Darrel Conklin MD Service: Anesthesiology Author [...] and consent discussed: yes. Patient / Responsible Alliance Party agrees to proceed: yes Patient / Surrogate [...] 0858 Pulse 83 03/31/23 0858 Resp 18 03/31/23 0858 Temp 36.4 ?C (97.5 ?F) 03/31/23 0858 SpO2 97 % 03/31/23 0858 Facility-Administered Medications [...] Susi Milesenship DATE: March 31, 2023 TIME: 9:13 AM CSN: [id number] [facility] BRIEF OP NOTon 03-31-2023 BRIEF OP NOT HNO ID: [id number] Author: Joe Abraham MD Service: General Surgery Author Type: Resident Type: Brief Op Note Filed: 03/31/2023 12:53 PM Note Text: Attestation signed by Joe Granda MD at 03/31/2023 2:33 PM [id number] Joe Granda MD GENERAL SURGERY BRIEF OP NOTE LOG ID: [id number] Surgery/Procedure Date: 03/31/2023 Incision/Procedure Start Time: 11:11 AM Incision Close/Procedure End Time: 12:52 PM Surgeon(s) and Beach Expert(s): Surgeon(s) and Role: * Joe Granda MD [...] 31, 2023 TIME: 12:52 PM PAGER/CONTACT #: [phone] [facility] NURSING PROGon 03-31-2023 NURSING PROG HNO ID: [id number] Author: Susi Ruffin RN Service: Nursing Author Type: Registered Nurse Type: Nursing Progress Note Filed: 03/31/2023 5:08 PM Note Text: Transfer Note: PATIENT NAME: Susi Ortiz Patient Location: [place] [address] [address] Room: [place] [address] Patient transferred in stable condition. Actions taken: Report given/called to [facility]. Orders signed and held were transferred over. [facility] NURSING PROG HNO ID: [id number] Author: Cathleen Hubbard RN Service: Nursing Author [...] (RECOMMENDATION): None Electronically Signed By: Cathleen Hubbard [facility] OPERATIVE NOon 03-31-2023 OPERATIVE NO HNO ID: [id number] Author: Joe Granda MD Service: General Surgery Author Type: Physician Type: Operative Report Filed: 04/09/2023 3:22 PM Note Text: [facility] - Operative Report SUSI ORTIZ : 1985 AGE: 37. SEX: F PATIENT TYPE: I HOSP SVC: Surgical LOCATION: [facility] ATTENDING PHYSICIAN: Joe Granda M.D. CSN NUMBER: [id number] DATE OF SURGERY/PROCEDURE: 03/31/2023 INCISION/PROCEDURE START TIME: [...] of sleeve leak. SURGEON: Joe Granda M.D. AIRPLANE ELECTRICAL REPAIRER: Joe Abraham. SURGERY/PROCEDURE: Laparoscopic enterolysis. ANESTHESIA: General [...] Monocryl an (more content not included)... Normal [facility] [id number] 03-10-2023 ECG01 Ventricular Rate : 7 5 BPM Atrial Rate : 75 BPM P-R Interval : 172 ms QRS Duration : 96 ms Q-T Interval : 390 ms QTC Calculation(Bazett) : 435 ms Calculated P [place] : 22 degrees Calculated R [place] : 25 degrees Calculated T [place] : 27 degrees NORMAL SINUS RHYTHM NORMAL ECG Confirmed by Penelope Fowler M.D. ([id number]) on 03/13/2023 4:51:16 PM NAME : SUSI ORTIZ PID : [id number] : 1985 Gender : Female Race : [...] Acquired by : Winsome viera [facility] HISTORY PHYSICALon 3 HISTORY PHYSICAL HNO ID: [id number] Author: Shruti Alvarado APRN.CNP Service: ? Author Type: Nurse Practitioner [...] medication comments found. ALLERGIES Allergen Reactions Adhes. Sici-Ytcd-Le* Rash Adhesive Tape-Silic* Rash Augmentin [Amoxicil* Diarrhea Keflex [Cephalexin] Rash, Itching Penicillins Hives Ultram [Tramadol Hc* Itching COVID VACCINATION STATUS: Fully vaccinated REVIEW OF SYSTEMS: PAIN ASSESSMENT: General: No weight loss, malaise or fevers. Neuro: No history of TIA's, stroke, [employer]IST tumor, impaired sensorium, hemiplegia, paraplegia or quadraplegia. [...] (more content not included)... Normal [facility] CBC W Auto Differential pane l (Bld)on 01-23-2023 Anisocytosis Ql (Bld) Present Normal [facility] Comment on above: Order Comment: Specimen Type: BLOOD SPEC IMEN [facility] Address: [address] [place] [address] Performed By: #### 2 284-8, 8, 2132-02 #### [facility] CLIA [id number] [address] [place] [address] [place] Basophils (Bld) [#/Vol] 0.14 10*3/uL High <0.11 [facility] Comment on above: Order Comment: Specimen Type: BLOOD SPEC IMEN [facility] Address: [address] [place] [address] Performed By: #### 2 284-8, 8, 2132-02 #### [facility] CLIA [id number] [address] [place] [address] [place] Basophils/100 WBC (Bld) 1.0 % Normal [facility] Comment on above: Order Comment: Specimen Type: BLOOD SPEC IMEN [facility] Address: [address] [place] [address] Performed By: #### 2 284-8, 2731-01, 2132-02 #### [facility] CLIA [id number] [address] [place] [address] [place] Differential cell count method Nom (Bld) Manual Normal [facility] Comment on above: Order Comment: Specimen Type: BLOOD SPEC IMEN [facility] Address: [address] [place] [address] Performed By: #### 2 284-8, 2730-8, 2132-02 #### [facility] CLIA [id number] [address] [place] [address] [place] Eosinophils (Bld) [#/Vol] 0.41 10*3/uL Normal <0.46 [facility] Comment on above: Order Comment: Specimen Type: BLOOD SPEC IMEN [facility] Address: [address] [place] [address] Performed By: #### 2 284-8, 2731-8, 2132-02 #### [facility] CLIA [id number] [address] [place] [address] [place] Eosinophils/100 WBC (Bld) 3.0 % Normal [facility] Comment on above: Order Comment: Specimen Type: BLOOD SPEC IMEN [facility] Address: [address] [place] [address] Performed By: #### 2 284-8, 8, 2132-02 #### [facility] CLIA [id number] [address] [place] [address] [place] Erythrocyte distribution width (RBC) [Ratio] 15.2 % High 11.5-15.0 [facility] Comment on above: Order Comment: Specimen Type: BLOOD SPEC IMEN [facility] Address: [address] [place] [address] Performed By: #### 2 284-8, 8, 2132-02 #### [facility] CLIA [id number] [address] [place] [address] [place] Hematocrit (Bld) [Volume fraction] 46.2 % High 36.0-46.0 [facility] Comment on above: Order Comment: Specimen Type: BLOOD SPEC IMEN [facility] Address: [address] [place] [address] Performed By: #### 2 284-8, 273-8, 2132-02 #### [facility] CLIA [id number] [address] [place] [address] [place] Hemoglobin (Bld) [Mass/Vol] 14.5 g/dL Normal 11.5-15.5 [facility] Comment on above: Order Comment: Specimen Type: BLOOD SPEC IMEN [facility] Address: [address] [place] [address] Performed By: #### 2 284-8, 2731-8, 2132-02 #### [facility] CLIA [id number] [address] [place] [address] [place] Lymphocytes (Bld) [#/Vol] 5.61 10*3/uL High 1.00-4.00 [facility] Comment on above: Order Comment: Specimen Type: BLOOD SPEC IMEN [facility] Address: [address] [place] [address] Performed By: #### 2 284-8, 8, 2132-02 #### [facility] CLIA [id number] [address] [place] [address] [place] Lymphocytes/100 WBC (Bld) 41.0 % Normal [facility] Comment on above: Order Comment: Specimen Type: BLOOD SPEC IMEN [facility] Address: [address] [place] [address] Performed By: #### 2 284-8, 2730-8, 2132-02 #### [facility] CLIA [id number] [address] [place] [address] [place] MCH (RBC) [Entitic mass] 28.2 pg Normal 26.0-34.0 [facility] Comment on above: Order Comment: Specimen Type: BLOOD SPEC IMEN [facility] Address: [address] [place] [address] Performed By: #### 2 284-8, 2730-8, 2132-02 #### [facility] CLIA [id number] [address] [place] [address] [place] MCHC (RBC) [Mass/Vol] 31.4 g/dL Normal 30.5-36.0 [facility] Comment on above: Order Comment: Specimen Type: BLOOD SPEC IMEN [facility] Address: [address] [place] [address] Performed By: #### 2 284-8, 8, 2132-02 #### [facility] CLIA [id number] [address] [place] [address] [place] MCV (RBC) [Entitic vol] 89.9 fL Normal 80.0-100.0 [facility] Comment on above: Order Comment: Specimen Type: BLOOD SPEC IMEN [facility] Address: [address] [place] [address] Performed By: #### 2 284-8, 8, 2132-02 #### [facility] CLIA [id number] [address] [place] [address] [place] Monocytes (Bld) [#/Vol] 0.68 10*3/uL Normal <0.87 [facility] Comment on above: Order Comment: Specimen Type: BLOOD SPEC IMEN [facility] Address: [address] [place] [address] Performed By: #### 2 284-8, 2731-01, 2132-02 #### [facility] CLIA [id number] [address] [place] [address] [place] Monocytes/100 WBC (Bld) 5.0 % Normal [facility] Comment on above: Order Comment: Specimen Type: BLOOD SPEC IMEN [facility] Address: [address] [place] [address] Performed By: #### 2 284-8, 2731-01, 2132-02 #### [facility] CLIA [id number] [address] [place] [address] [place] Neutrophils (Bld) [#/Vol] 6.84 10*3/uL Normal 1.45-7.50 [facility] Comment on above: Order Comment: Specimen Type: BLOOD SPEC IMEN [facility] Address: [address] [place] [address] Performed By: #### 2 284-8, 8, 2132-02 #### [facility] CLIA [id number] [address] [place] [address] [place] Neutrophils/100 WBC (Bld) 50.0 % Normal [facility] Comment on above: Order Comment: Specimen Type: BLOOD SPEC IMEN [facility] Address: [address] [place] [address] Performed By: #### 2 284-8, 8, 2132-02 #### [facility] CLIA [id number] [address] [place] [address] [place] Nucleated RBC (Bld) [#/Vol] 10*3/uL Normal <0.01 [facility] Comment on above: Order Comment: Specimen Type: BLOOD SPEC IMEN [facility] Address: [address] [place] [address] Performed By: #### 2 284-8, 8, 2132-02 #### [facility] CLIA [id number] [address] [place] [address] [place] Nucleated RBC/100 WBC (Bld) [Ratio] 0.0 /100 WBC Normal [facility] Comment on above: Order Comment: Specimen Type: BLOOD SPEC IMEN [facility] Address: [address] [place] [address] Performed By: #### 2 284-8, 8, 2132-02 #### [facility] CLIA [id number] [address] [place] [address] [place] Platelet mean volume (Bld) [Entitic vol] 10.1 fL Normal 9.0-12.7 [facility] Comment on above: Order Comment: Specimen Type: BLOOD SPEC IMEN [facility] Address: [address] [place] [address] Performed By: #### 2 284-8, 273-8, 2132-02 #### [facility] CLIA [id number] [address] [place] [address] [place] Platelets (Bld) [#/Vol] 624 10*3/uL High 150-400 [facility] Comment on above: Order Comment: Specimen Type: BLOOD SPEC IMEN [facility] Address: [address] [place] [address] Performed By: #### 2 284-8, 273-8, 2132-02 #### [facility] CLIA [id number] [address] [place] [address] [place] Platelets Estimate (Bld) [#/Vol] Increased Normal [facility] Comment on above: Order Comment: Specimen Type: BLOOD SPEC IMEN [facility] Address: [address] [place] [address] Performed By: #### 2 284-8, 2730-8, 2132-02 #### [facility] CLIA [id number] [address] [place] [address] [place] RBC (Bld) [#/Vol] 5.14 10*6/uL Normal 3.90-5.20 [facility] Comment on above: Order Comment: Specimen Type: BLOOD SPEC IMEN [facility] Address: [address] [place] [address] Performed By: #### 2 284-8, 2730-8, 9 #### [facility] CLIA [id number] [address] [place] [address] [place] RED CELL MORPH Reviewed: see result s of individual morphologies Normal [facility] Comment on above: Order Comment: Specimen Type: BLOOD SPEC IMEN [facility] Address: [address] [place] [address] Performed By: #### 2 284-8, 2731-8, 2132-02 #### [facility] CLIA [id number] [address] [place] [address] [place] WBC (Bld) [#/Vol] 13.68 10*3/uL High 3.70-11.00 [facility] Comment on above: Order Comment: Specimen Type: BLOOD SPEC IMEN [facility] Address: [address] [place] [address] Performed By: #### 2 284-8, 273-8, 2132-02 #### [facility] CLIA [id number] [address] [place] [address] [place] Comprehensive metabolic 2000 panelon 01-23-2023 Albumin [Mass/Vol] 3.9 g/dL Normal 3.9-4.9 [facility] Comment on above: Order Comment: Specimen Type: BLOOD SPEC IMEN [facility] Address: [address] [place] [address] Performed By: #### 2 284-8, 2730-8, 2132-02 #### [facility] CLIA [id number] [address] [place] [address] [place] ALP [Catalytic activity/Vol] 101 U/L Normal 34-123 [facility] Comment on above: Order Comment: Specimen Type: BLOOD SPEC IMEN [facility] Address: [address] [place] [address] Performed By: #### 2 284-8, 273-8, 2132-02 #### [facility] CLIA [id number] [address] [place] [address] [place] ALT [Catalytic activity/Vol] 17 U/L Normal 7-38 [facility] Comment on above: Order Comment: Specimen Type: BLOOD SPEC IMEN [facility] Address: [address] [place] [address] Performed By: #### 2 284-8, 2731-8, 2132-02 #### [facility] CLIA [id number] [address] [place] [address] [place] Anion gap [Moles/Vol] 16 mmol/L Normal 9-18 [facility] Comment on above: Order Comment: Specimen Type: BLOOD SPEC IMEN [facility] Address: [address] [place] [address] Performed By: #### 2 284-8, 8, 2132-02 #### [facility] CLIA [id number] [address] [place] [address] [place] AST [Catalytic activity/Vol] 33 U/L Normal 13-35 [facility] Comment on above: Order Comment: Specimen Type: BLOOD SPEC IMEN [facility] Address: [address] [place] [address] Performed By: #### 2 284-8, 2731-01, 2132-02 #### [facility] CLIA [id number] [address] [place] [address] [place] Bilirubin [Mass/Vol] 0.2 mg/dL Normal 0.2-1.3 [facility] Comment on above: Order Comment: Specimen Type: BLOOD SPEC IMEN [facility] Address: [address] [place] [address] Performed By: #### 2 284-8, 8, 2132-02 #### [facility] CLIA [id number] [address] [place] [address] [place] Calcium [Mass/Vol] 10.2 mg/dL Normal 8.5-10.2 [facility] Comment on above: Order Comment: Specimen Type: BLOOD SPEC IMEN [facility] Address: [address] [place] [address] Performed By: #### 2 284-8, 8, 2132-02 #### [facility] CLIA [id number] [address] [place] [address] [place] Chloride [Moles/Vol] 100 mmol/L Normal 97-105 [facility] Comment on above: Order Comment: Specimen Type: BLOOD SPEC IMEN [facility] Address: [address] [place] [address] Performed By: #### 2 284-8, 2731-8, 9 #### [facility] CLIA [id number] [address] [place] [address] [place] CO2 [Moles/Vol] 19 mmol/L Low 22-30 [facility] Comment on above: Order Comment: Specimen Type: BLOOD SPEC IMEN [facility] Address: [address] [place] [address] Performed By: #### 2 284-8, 2731-8, 9 #### [facility] CLIA [id number] [address] [place] [address] [place] Creatinine [Mass/Vol] 0.64 mg/dL Normal 0.58-0.96 [facility] Comment on above: Order Comment: Specimen Type: BLOOD SPEC IMEN [facility] Address: [address] [place] [address] Performed By: #### 2 284-8, 2731-8, 9 #### [facility] CLIA [id number] [address] [place] [address] [place] ESTIMATED GLOMERULAR FILTRATION RATE 117 mL/min/1.73m??? Normal >=60 [facility] Comment on above: Order Comment: Specimen Type: BLOOD SPEC IMEN [facility] Address: [address] [place] [address] Result Comment: Janet mated Glomerular Filtration Rate [...] actual GFR. Performed By: #### 2 284-8, 2731-01, 2132-02 #### [facility] CLIA [id number] [address] [place] [address] [place] Glucose [Mass/Vol] 73 mg/dL Low 74-99 [facility] Comment on above: Order Comment: Specimen Type: BLOOD SPEC IMEN [facility] Address: [address] [place] [address] Result Comment: The [place] Diabetes Association (ADA) provides guidance for cutoff [...] Standards of Medical Care in Diabetes 2016, [place] [employer]. Diabetes Care. 2016.39(Suppl 1). Performed By: #### 2 284-8, 2731-01, 2132-02 #### [facility] CLIA [id number] [address] [place] [address] [place] Potassium [Moles/Vol] 4.5 mmol/L Normal 3.7-5.1 [facility] Comment on above: Order Comment: Specimen Type: BLOOD SPEC IMEN [facility]: [facility] Address: [address] [place] [address] Performed By: #### 2 284-8, 2731-01, 2132-02 #### [facility] CLIA [id number] [address] [place] [address] [place] Protein [Mass/Vol] 7.8 g/dL Normal 6.3-8.0 [facility] Comment on above: Order Comment: Specimen Type: BLOOD SPEC IMEN [facility] Address: [address] [place] [address] Performed By: #### 2 284-8, 273-8, 9 #### [facility] CLIA [id number] [address] [place] [address] [place] Sodium [Moles/Vol] 135 mmol/L Low 136-144 [facility] Comment on above: Order Comment: Specimen Type: BLOOD SPEC IMEN [facility] Address: [address] [place] [address] Performed By: #### 2 284-8, 273-8, 9 #### [facility] CLIA [id number] [address] [place] [address] [place] Urea nitrogen [Mass/Vol] 7 mg/dL Normal 7-21 [facility] Comment on above: Order Comment: Specimen Type: BLOOD SPEC IMEN [facility]: [facility] Address: [address] [place] [address] Performed By: #### 2 284-8, 273-8, 9 #### [facility] CLIA [id number] [address] [place] [address] [place] CNPShanon 01-05-2023 CNPN Telephone (BMIJAN) SUSI ORTIZ ([id number]) 1985 F Date Time Provider Department 01/05/23 [...] - Stop all ASA and NSAID products, [place] 3 fish oil, herbal products such as [...] Pt instructed to fax FMLA forms to [phone] and allow 7-10 days for completion. - [...] of Date: 01/05/2023 Noted Allergy Reaction ADHES. [id number] 03/13/2015 2 - Rash ADHESIVE TAPE-SILICONES 05/06/2019 [...] (more content not included)... Normal [facility] XR ankle LT min 3V*on 2022 XR ankle LT min 3V* [facility] [employer] Other XR ankle LT min 3V* [facility] [employer] Other XR ankle LT min 3V* [address] [place] [address] [employer] Other XR ankle LT min 3V* [place] [address] [employer] Other XR ankle LT min 3V* XRay Report [employer] Other XR ankle LT min 3V* Signed [employer] Other XR ankle LT min 3V* Patient: Susi Ortiz MR#: M [employer] Other XR ankle LT min 3V* [id number] [employer] Other XR ankle LT min 3V* : 1985 Acct:[id number] [employer] Other XR ankle LT min 3V* Age/Sex: 37 / F ADM Date: 12/13/22 [employer] Other XR ankle LT min 3V* Loc: XDUCLY Room: Type: [facility] [employer] Other XR ankle LT min 3V* Attending Dr: Linda South APRN [employer] Other XR ankle LT min 3V* Copies to: Linda South APRN [employer] Other XR ankle LT min 3V* Ordering Provider: Linda South APRN [employer] Other XR ankle LT min 3V* Date of Service: 12/13/22 [employer] Other XR ankle LT min 3V* XR/XR ankle LT min 3V*: Acute left ankle pain [employer] Other XR ankle LT min 3V* LEFT ANKLE - 3 views [employer] Other XR ankle LT min 3V* CLINICAL DATA: Patient felt a pop at the ankle while walking this morning. Lateral pain and [email or web address] Other XR ankle LT min 3V* swelling. [employer] Other XR ankle LT min 3V* COMPARISON: LEFT FOOT 11/13/2021 [employer] Other XR ankle LT min 3V* AP, lateral and oblique views were obtained. There is no evidence of fracture or dislocation. [employer] Other XR ankle LT min 3V* The talar dome is intact. Posterior and plantar calcaneal spurs are visualized. There is diffuse [employer] Other XR ankle LT min 3V* soft tissue prominence related to body habitus. [employer] Other XR ankle LT min 3V* XR/XR ankle LT min 3V* [employer] Other XR ankle LT min 3V* IMPRESSION: [employer] Other XR ankle LT min 3V* NO ACUTE BONY FINDINGS. [employer] Other XR ankle LT min 3V* Impression dictated by: Diana Rojas M.D.12/13/2022 10:38 AM [employer] Other XR ankle LT min 3V* Dictation Location: [facility]02 [employer] Other XR ankle LT min 3V* Transcribed By: GENO 12/13/22 1038 [employer] Other XR ankle LT min 3V* Dictated By: Diana Rojas MD 12/13/22 1032 [employer] Other XR ankle LT min 3V* Signed By: [employer] Other XR ankle LT min 3V* 12/13/22 4924 [employer] Other XR ankle LT min 3V* [facility] Main [place] [address] [place] [address] XRay Report Signed Patient: Susi Ortiz MR#: [id number] : 1985 Acct:[id number] Age/Sex: 37 / F ADM Date: 12/13/22 Loc: XDUCLY Room: Type: [facility] Attending Dr: Linda South APRN Copies [...] Diana Rojas M.D.12/13/2022 10:38 AM Dictation Location: [facility]02 Transcribed By: GENO 12/13/22 1038 Dictated By: Diana Rojas MD 12/13/22 1036 Signed By: 12/13/22 1038 Normal [facility] CT HEAD WO CONon 08-19-2022 CT [...] MANPREET TORRES Date: 2022-08-19 18:23 Normal [facility] VITAMIN B1 (THIAMINE)on 03-29 Vit. B1, Whole Blood 113.1 nmol/L Normal 66.5-200.0 [facility] Comment on above: Performed By: #### FETIBC, VITAD, B12FOL #### [facility] [address] [address] [address] Gentry Harmon XR foot RT min 3V*on 022 XR foot RT min 3V* [facility] Main [place] [address] [place] [address] XRay Report Signed Patient: Susi Ortiz MR#: Inna [id number] : 1985 Acct:[id number] Age/Sex: 36 / F ADM Date: 04/16/22 Loc: XDUCLY Room: Type: [facility] Attending Dr: Christa JONES Copies to: [...] Gt Ventura M.D.04/16/2022 7:09 PM Dictation Location: [place] [address] Transcribed By: [facility] 04/16/221908 Dictated By: Gt Ventura II, MD 04/16/221903 Signed By: 04/16/221908 Normal [facility] XR foot RT min 3V* [facility] Other XR foot RT min 3V* [facility] [place] [employer] Other XR foot RT min 3V* [address] [place] [address] [employer] Other XR foot RT min 3V* [place] [address] [employer] Other XR foot RT min 3V* XRay Report [employer] Other XR foot RT min 3V* Signed [employer] Other XR foot RT min 3V* Patient: Susi Ortiz MR#: M [employer] Other XR foot RT min 3V* [id number] [employer] Other XR foot RT min 3V* : 1985 Acct:[id number] [employer] Other XR foot RT min 3V* Age/Sex: 36 / F ADM Date: 04/16/22 [employer] Other XR foot RT min 3V* Loc: XDUCLY [facility] [employer] Other XR foot RT min 3V* Attending Dr: Christa JONES [employer] Other XR foot RT min 3V* Copies to: ROBERT Feliciano [employer] Other XR foot RT min 3V* Ordering Provider: ROBERT Feliciano [employer] Other XR foot RT min 3V* Date of Service: 04/16/22 [employer] Other XR foot RT min 3V* XR/XR foot RT min 3V*: Right foot pain [employer] Other XR foot RT min 3V* XR foot RT min 3V* 04/16/2022 6:45 PM [employer] Other XR foot RT min 3V* SIGNS AND SYMPTOMS: Popping sensation in right foot [employer] Other XR foot RT min 3V* PROTOCOL: Frontal, lateral, and oblique radiographs of the right [employer] Other XR foot RT min 3V* COMPARISON: 11/04/2018 [employer] Other XR foot RT min 3V* FINDINGS: [employer] Other XR foot RT min 3V* The bones are in anatomic alignment. Degenerative changes without evidence of fracture or [facility] [employer] Other XR foot RT min 3V* dislocation. There is diffuse soft tissue swelling. There is plantar and Achilles surface calc [employer] Other XR foot RT min 3V* aneal spurring. Degenerative changes are noted in the talonavicular joint. [employer] Other XR foot RT min 3V* XR/XR foot RT min 3V* [employer] Other XR foot RT min 3V* IMPRESSION: [employer] Other XR foot RT min 3V* No fracture. [employer] Other XR foot RT min 3V* There is diffuse soft tissue swelling which is new. [employer] Other XR foot RT min 3V* Mild degenerative changes are noted at the talonavicular junction with spurring at the plantar and [employer] Other XR foot RT min 3V* Achilles surface of the calcaneus. [employer] Other XR foot RT min 3V* Impression dictated by: Gt Ventura M.D.04/16/2022 7:09 PM [place] [employer] Other XR foot RT min 3V* Dictation Location: [place] [address] [employer] Other XR foot RT min 3V* Transcribed By: GENO 04/16/221908 [employer] Other XR foot RT min 3V* Dictated By: Gt Ventura II, MD 04/16/221903 [employer] Other XR foot RT min 3V* Signed By: [employer] Other XR foot RT min 3V* 04/16/221908 [employer] Other CBC AUTO DIFFon 04-11-2022 BASO # 0.1 103/ul Normal 0.0-0.[address] [facility] Comment on above: Performed By: #### FETIBC, VITAD, B12FOL #### [facility] [address] [address] [address] Gentry Harmon Basophils/100 WBC (Bld) 0.5 % Normal 0.2-2.0 [facility] Comment on above: Performed By: #### FETIBC, VITAD, B12FOL #### [facility] [address] [place] [address] Dr. Gentry Harmon EO # 0.2 103/ul Normal 0.0-0.[address] [facility] Comment on above: Performed By: #### FETIBC, VITAD, B12FOL #### [facility] [address] [place] [address] Dr. Gentry Harmon Eosinophils/100 WBC (Bld) 0.9 % Normal 0.9-7.[address] [facility] Comment on above: Performed By: #### FETIBC, VITAD, B12FOL #### [facility] [address] [place] [address] Dr. Gentry Harmon Erythrocyte distribution width (RBC) [Ratio] 14.3 % Normal 11.0-15.[address] [facility] Comment on above: Performed By: #### FETIBC, VITAD, B12FOL #### [facility] [address] [place] [address] Dr. Gentry Harmon Hematocrit (Bld) [Volume fraction] 41.9 % Normal 36.0-48.[address] [facility] Comment on above: Performed By: #### FETIBC, VITAD, B12FOL #### [facility] [address] [place] [address] Dr. Gentry Harmon Hemoglobin (Bld) [Mass/Vol] 13.4 g/dL Normal 12.0-16.[address] [facility] Comment on above: Performed By: #### FETIBC, VITAD, B12FOL #### [facility] [address] [place] [address] Dr. Gentry Harmon IG # 0.06 10e3/ul Critically high 0.00-0.03 [facility] Comment on above: Performed By: #### FETIBC, VITAD, B12FOL #### [facility] [address] [place] [address] Dr. Gentry Harmon IG % 0.3 % Normal 0.0-0.[address] [facility] Comment on above: Performed By: #### FETIBC, VITAD, B12FOL #### [facility] [address] [place] [address] Dr. Gentry Harmon LYMPH # 5.9 103/ul Critically high 1.2-3.8 [facility] Comment on above: Performed By: #### FETIBC, VITAD, B12FOL #### [facility] [address] [place] [address] Dr. Gentry Harmon Lymphocytes/100 WBC (Bld) 34.0 % Normal 20.5-60.[address] [facility] Comment on above: Performed By: #### FETIBC, VITAD, B12FOL #### [facility] [address] [place] [address] Dr. Gentry Harmon MANUAL DIFF REQ NO Normal [facility] Comment on above: Performed By: #### FETIBC, VITAD, B12FOL #### [facility] [address] [place] [address] Dr. Gentry Harmon MCH (RBC) [Entitic mass] 28.9 pg Normal 26.7-34.[address] [facility] Comment on above: Performed By: #### FETIBC, VITAD, B12FOL #### [facility] [address] [place] [address] Dr. Gentry Harmon MCHC (RBC) [Mass/Vol] 32.0 g/dL Normal 29.9-35.[address] [facility] Comment on above: Performed By: #### FETIBC, VITAD, B12FOL #### [facility] [address] [place] [address] Dr. Gentry Harmon MCV (RBC) [Entitic vol] 90.3 fL Normal 81.0-99.[address] [facility] Comment on above: Performed By: #### FETIBC, VITAD, B12FOL #### [facility] [address] [place] [address] Dr. Gentry Harmon MONO # 1.3 103/ul Critically high 0.3-0.8 [facility] Comment on above: Performed By: #### FETIBC, VITAD, B12FOL #### [facility] [address] [address] [address] Gentry Harmon Monocytes/100 WBC (Bld) 7.8 % Normal 1.7-12.[address] [facility] Comment on above: Performed By: #### FETIBC, VITAD, B12FOL #### [facility] [address] [address] [address] Gentry Harmon NEUT # 9.8 103/ul Critically high 1.4-6.5 [facility] Comment on above: Performed By: #### FETIBC, VITAD, B12FOL #### [facility] [address] [address] [address] Gentry Harmon Neutrophils/100 WBC (Bld) 56.5 % Normal 43.0-75.0 [facility] Comment on above: Performed By: #### FETIBC, VITAD, B12FOL #### [facility] [address] [place] [address] Dr. Gentry Harmon Platelet mean volume (Bld) [Entitic vol] 9.3 fL Critically low 9.5-13.5 [facility] Comment on above: Performed By: #### FETIBC, VITAD, B12FOL #### [facility] [address] [address] [address] Gentry Harmon PLT 522 103/ul Critically high 150-450 [facility] Comment on above: Performed By: #### FETIBC, VITAD, B12FOL #### [facility] [address] [address] [address] Gentry Harmon RBC 4.64 106/ul Normal 4.20-5.40 [facility] Comment on above: Performed By: #### FETIBC, VITAD, B12FOL #### [facility] [address] [place] [address] Dr. Gentry Harmon WBC 17.3 103/ul Critically high 4.0-11.0 [facility] Comment on above: Performed By: #### FETIBC, VITAD, B12FOL #### [facility] [address] [place] [address] Dr. Gentry Harmon IRON AND TIBCon 04-11-2022 % SATURATION 15.7 % Normal [facility] Comment on above: Performed By: #### FETIBC, VITAD, B12FOL #### [facility] [address] [place] [address] Dr. Gentry Harmon Iron [Mass/Vol] 58.0 ug/dL Normal 50.0-170.0 [facility] Comment on above: Performed By: #### FETIBC, VITAD, B12FOL #### [facility] [address] [address] [address] Gentry Harmon TIBC DIRECT 369.0 ug/dL Normal 250.0-450. 0 [facility] Comment on above: Performed By: #### FETIBC, VITAD, B12FOL #### [facility] [address] [place] [address] Dr. Gentry Harmon PREALBUMINon 04-11-2022 Prealbumin [Mass/Vol] 27.8 mg/dL Normal 20.9-45.[address] [facility] Comment on above: Performed By: #### CMP, PREALB #### [facility] [address] [place] [address] Dr. Gentry Harmon PROF 14(COMP METB)on 022 Albumin [Mass/Vol] 3.3 g/dL Critically low 3.4-5.[address] [facility] Comment on above: Performed By: #### CMP, PREALB #### [facility] [address] [place] [address] Dr. Gentry Harmon Albumin/Globulin [Mass ratio] 0.8 {ratio} Normal [facility] Comment on above: Performed By: #### CMP, PREALB #### [facility] [address] [place] [address] Dr. Gentry Harmon ALP [Catalytic activity/Vol] 89 U/L Normal 46-116 [facility] Comment on above: Performed By: #### CMP, PREALB #### [facility] [address] [place] [address] Dr. Gentry Harmon ALT [Catalytic activity/Vol] 16 U/L Normal 14-59 [facility] Comment on above: Performed By: #### CMP, PREALB #### [facility] [address] [place] [address] Dr. Gentry Harmon Anion gap [Moles/Vol] 11.3 mmol/L Normal [facility] Comment on above: Performed By: #### CMP, PREALB #### [facility] [address] [place] [address] Dr. Gentry Harmon AST [Catalytic activity/Vol] 11 U/L Critically low 15-[address] [facility] Comment on above: Performed By: #### CMP, PREALB #### [facility] [address] [place] [address] Dr. Gentry Harmon Bilirubin [Mass/Vol] 0.1 mg/dL Critically low 0.2-1.[address] [facility] Comment on above: Performed By: #### CMP, PREALB #### [facility] [address] [place] [address] Dr. Gentry Harmon Calcium [Mass/Vol] 8.8 mg/dL Normal 8.5-10.1 [facility] Comment on above: Performed By: #### CMP, PREALB #### [facility] [address] [place] [address] Dr. Gentry Harmon Chloride [Moles/Vol] 103 mmol/L Normal 98-107 [facility] Comment on above: Performed By: #### CMP, PREALB #### [facility] [address] [place] [address] Dr. Gentry Harmon CO2 [Moles/Vol] 25.6 mmol/L Normal 21.0-32.0 [facility] Comment on above: Performed By: #### CMP, PREALB #### [facility] [address] [place] [address] Dr. Gentry Harmon Creatinine [Mass/Vol] 0.81 mg/dL Normal 0.55-1.[address] [facility] Comment on above: Performed By: #### CMP, PREALB #### [facility] [address] [place] [address] Dr. Gentry Harmon EGFR-AF FIJIAN >60 Normal >=60 [facility] Comment on above: Performed By: #### CMP, PREALB #### [facility] [address] [place] [address] Dr. Gentry Harmon EGFR-NON AF FIJIAN >60 Normal >=60 [facility] Comment on above: Performed By: #### CMP, PREALB #### [facility] [address] [address] [address] Gentry Harmon Globulin (S) [Mass/Vol] 4.4 g/dL Normal [facility] Comment on above: Performed By: #### CMP, PREALB #### [facility] [address] [place] [address] Dr. Gentry Harmon Glucose [Mass/Vol] 101 mg/dL Normal 74-106 [facility] Comment on above: Performed By: #### CMP, PREALB #### [facility] [address] [place] [address] Dr. Gentry Harmon Potassium [Moles/Vol] 3.9 mmol/L Normal 3.5-5.1 [facility] Comment on above: Performed By: #### CMP, PREALB #### [facility] [address] [place] [address] Dr. Gentry Harmon Protein [Mass/Vol] 7.7 g/dL Normal 6.4-8.2 [facility] Comment on above: Performed By: #### CMP, PREALB #### [facility] [address] [place] [address] Dr. Gentry Harmon Sodium [Moles/Vol] 136 mmol/L Normal 136-145 [facility] Comment on above: Performed By: #### CMP, PREALB #### [facility] [address] [place] [address] Dr. Gentry Harmon Urea nitrogen [Mass/Vol] 10.0 mg/dL Normal 7.0-18.0 [facility] Comment on above: Performed By: #### CMP, PREALB #### [facility] [address] [place] [address] Dr. Gentry Harmon Urea nitrogen/Creatin ine [Mass ratio] 12.3 mg/mg Normal [facility] Comment on above: Performed By: #### CMP, PREALB #### [facility] [address] [address] [address] Gentry Harmon VIT B12 AND FOLATEon 022 Cobalamin (Vitamin B12) [Mass/Vol] 226.0 pg/mL Normal 193.0-986. [address] [facility] Comment on above: Performed By: #### FETIBC, VITAD, B12FOL #### [facility] [address] [address] [address] Gentry Harmon FOLATE 3.20 ng/mL Critically low 8.60-58.90 [facility] Comment on above: Performed By: #### FETIBC, VITAD, B12FOL #### [facility] [address] [place] [address] Dr. Gentry Harmon VITAMIN D 25 OHon 04-11-2022 VIT D 25-OH 23.6 ng/mL Normal [facility] Comment on above: Performed By: #### FETIBC, VITAD, B12FOL #### [facility] [address] [address] [address] Gentry Harmon VIT D RANGES SEE BELOW Normal [facility] Comment on above: Result Comment: <20 ng/mL Vit D deficien t 20 - <30 ng/mL Vit D insufficient 30 - 100 ng/mL Vit D sufficient >100 ng/mL Potential Toxicity Performed By: #### F ETIBC, VITAD, B12FOL #### [facility] [address] [place] [address] Dr. Gentry Harmon XR LSPINE 2_3 VIEWSon [...] by: ESTELLA ALVES Date: 2022-04-01 19:22 Normal [facility] CT ABD/PEL W IVCONon 022 CT ABD/PEL W IVCON * * *Final Report* * * DATE OF EXAM: Feb 12 2022 2:57PM [facility] 0530 - CT ABD/PEL W IVCON [...] lesions. Lower thorax: Lower lungs are clear. Lead Programmer Analyst (topogram) images: Unremarkable. IMPRESSION: No acute process in the abdomen or pelvis. Ui Architect: DENISE Transcribe Date/Time: Feb 12 2022 3:04P Dictated by : MARIELA GRECO MD This examination was interpreted and the report reviewed and electronically signed by: MARIELA GRECO MD on Feb 12 2022 3:19PM EST [id number] [facility] NURSING PROGon 02-12-2022 NURSING PROG HNO ID: [id number] Author: Elizabeth Stephens RN Service: Radiology Author [...] DATE: February 12, 2022 TIME: 2:30 PM [facility] ANES POSTPROC EVALon 022 ANES POSTPROC EVAL HNO ID: [id number] Author: Carolina Pink MD Service: Anesthesiology Author [...] Granda MD; Carolina Pink MD; Sami Murcia APRN.LEATHER BELT MAKER Responsible Provider: Carolina Pink MD Anesthesia Type: [...] December 18, 2021 TIME: 3:11 PM [facility] [id number] [facility] PRE-[facility]on 12-18-2021 ANES PRE-OP HNO ID: [id number] Author: Carolina Pink MD Service: Anesthesiology Author Type: Physician Type: Anesthesia Preprocedure Evaluation Filed: 12/18/2021 11:23 AM Note Text: ANESTHESIOLOGY DAY OF SURGERY NOTE : 1985 Procedure Information Date/Time: 12/18/21 1115 Scheduled providers: Joe Granda MD; Carolina Pink MD; Sami Murcia APRN.LEATHER BELT MAKER Procedure: EGD DIAGNOSTIC Location: Procedures Estimated body [...] and consent discussed: yes. Patient / Responsible Alliance Party agrees to proceed: yes Patient / Surrogate [...] December 18, 2021 TIME: 11:22 AM CSN: [id number] [facility]21 [facility] Upper GI endoscopyon 022 Upper GI endoscopy [facility] Gastrointestinal Endoscopy Patient Name: Susi Ortiz Procedure Date: 12/18/2021 12:11 PM Date of : 1985 Admit Type: Outpatient Age: 36 Room: AV PROCEDURE A Gender: Female Note Status: Finalized [...] by the physician, the nurse and the mortgage or loan underwriter in the pre-procedure area in the endoscopy [...] previously scheduled. Procedure Code(s): --- Professional --- 40294, Esophagogastroduodenoscopy, flexible, transoral; diagnostic, including collection of specimen(s) by brushing or washing, when performed (separate procedure) Diagnosis Code(s): --- Professional --- Z98.84, Bariatric surgery status R10.13, Epigastric pain R12, Heartburn K95.89, Other complications of other bariatric procedure CPT copyright 2019 [employer]. All rights reserved. The codes documented in this report are preliminary and upon tire inspector review may be revised to meet current compliance requirements. Attending Participation: I personally performed the entire procedure. Scope In: 12:23:05 PM Scope Out: 12:26:48 PM MD Joe Gomez MD 12/18/2021 12:32:03 PM This report has been signed electronically by Joe Granda MD Number of Addenda: 0 Note Initiated On: 12/18/2021 12:11 PM Estimated Blood Loss: Estimated blood loss: none. Normal [facility] HISTORY PHYSICALon 2 HISTORY PHYSICAL HNO ID: [id number] Author: Melissa Olivas PA-C Service: ? Author Type: Physician [place] Expert Type: HANDP Filed: 12/10/2021 1:13 PM Note Text: HISTORY AND PHYSICAL EXAMINATION SERVICE DATE: 12/05/2021 SERVICE TIME: 1:12 PM PRIMARY CARE PHYSICIAN: Geneva Estrada, MEDICAL SCRIBE, MEDICAL SCRIBE This is a virtual visit using alternative [...] Body Mass Index of 60.0-69.9 in Adult ([facility]ly [facility]) COVID-19 Immunization Status Overdue - COVID-19 VACCINE [...] Negative for: dysuria, frequent urination and hematuria. CIVILIAN TECHNICIAN: +amenorrhea with IUD Endocrine: Negative for: diabetes [...] daily. Takin (more content not included)... Normal [facility] XR foot LT min 3V*on 022 XR foot LT min 3V* [facility] [employer] Other XR foot LT min 3V* [facility] [employer] Other XR foot LT min 3V* 1111 [facility] [employer] Other XR foot LT min 3V* [place] [address] [employer] Other XR foot LT min 3V* XRay Report [employer] Other XR foot LT min 3V* Signed [employer] Other XR foot LT min 3V* Patient: Susi Ortiz MR#: M [employer] Other XR foot LT min 3V* [id number] [employer] Other XR foot LT min 3V* : 1985 Acct:[id number] [employer] Other XR foot LT min 3V* Age/Sex: 36 / F ADM Date: 11/13/21 [employer] Other XR foot LT min 3V* Loc: XDUCLY Room: Type: [facility] [employer] Other XR foot LT min 3V* Attending Dr: Christa JONES [employer] Other XR foot LT min 3V* Ordering Provider: ROBERT Feliciano [employer] Other XR foot LT min 3V* Date of Service: 11/13/21 [employer] Other XR foot LT min 3V* XR/XR foot LT min 3V*: Left foot pain [employer] Other XR foot LT min 3V* Copies to: DIMAS FelicianoC [employer] Other XR foot LT min 3V* Left foot 11/13/2021. [employer] Other XR foot LT min 3V* CLINICAL DATA: Left foot pain. [employer] Other XR foot LT min 3V* FINDINGS: 3 views of the left foot were obtained and are compared with a prior study 03/21/2019. [employer] Other XR foot LT min 3V* No acute fracture or dislocation is identified. There is calcaneal spurring. No other bony [employer] Other XR foot LT min 3V* abnormality is seen. No localized soft tissue swelling is noted. [employer] Other XR foot LT min 3V* XR/XR foot LT min 3V* [employer] Other XR foot LT min 3V* IMPRESSION: Calcaneal spurring. No acute bony abnormality. [employer] Other XR foot LT min 3V* Impression dictated by: Pawan Gallardo Jr., M.D.11/13/2021 11:30 AM [employer] Other XR foot LT min 3V* Dictation Location: [facility] [employer] Other XR foot LT min 3V* Transcribed By: GENO 11/13/21 1130 [employer] Other XR foot LT min 3V* Dictated By: Pawan Gallardo Jr, MD 11/13/21 1127 [employer] Other XR foot LT min 3V* Signed By: [employer] Other XR foot LT min 3V* 11/13/21 1130 [facility] [employer] Other SITE SAFETY MANAGER - Office Visiton SITE SAFETY MANAGER - Office Visit Diagnoses/Problems Assessed Adnexal mass (625.8) (N94.89) Pelvic pain (R10.2) Orders Alpha Fetoprotein, Serum; Status:Active; Requested for:16Ifp0413; Cancer Antigen, 125; Status:Active; Requested for:53Jxi7972; Cancer Antigen, GI Ca 19-9; Status:Active; Requested for:53Zqw4610; Carcinoembryonic Antigen; Status:Active; Requested for:69Imh4007; HCG, Beta Quantitative; Status:Active; Requested for:36Yno3147; LDH; Status:Active; Requested for:71Yjm5549; IO Ultrasound, pelvic complete; Status:Hold For - [...] options and next steps. Plan: [x ] CIVILIAN TECHNICIAN ultrasound, patient is to contact our office to schedule [x ] we will check tumor markers [x ] our office staff will reach out to the patient to sign medical record release forms for her operative procedures performed at [facility] [x ] patient is to follow-up with me once this work-up is complete A copy of this note was sent electronically to Dr. Cherri Horvath MD Reproductive Endocrinology and Infertility [facility] [phone] [place] [phone] [place] Provider Impressions Susi is a 36-year-old female [...] options and next steps. Plan: [x ] CIVILIAN TECHNICIAN ultrasound, patient is to contact our office to schedule [x ] we will check tumor markers [x ] our office staff will reach out to the patient to sign medical record release forms for her operative procedures performed at [facility] [x ] patient is to follow-up with me once this work-up is complete A copy of this note was sent electronically to Dr. Cherri Horvath MD Reproductive Endocrinology and Infertility [facility] [phone] [place] [phone] [place] Appointment Duration:. 45 minutes; greater than half [...] Cyst on Right Ovary. History of Present Gysvtey1709/30/2021 9:15AM SUSI ORTIZ , 36 year is contacted for an (audio-visual, or audio only) Telehealth visit. Today's visit was provided through telemedicine conferencing: Using [employer] platform. Consent: The concept of telemedicine? has [...] She went in for evaluation with her SITE SAFETY MANAGER in early January 2021, and was subsequently found to have a complex ovarian cyst. She was taken (more content not included)... Normal [employer] Tobacco Screening.on 022 Fall risk assessment a) No falls within the last year HF-NFPDY-Kxtj ker 206A IV[facility] Work Phone: Last menstrual period start date MIRENA ZE-HPHTC-Kpbo Navent 206A IV[facility] Work Phone: Tobacco use status CPHS b) No QT-IWIFW-Hvba Navent 206A IV[facility] Work Phone: POCT urine pregnancyon 04-06 Beta HCG ( test) Ql (U) Negative NEGATIVE [place], [place] Comment on above: Specimens with hCG levels near the thres hold of the test (25 mIU/mL) may give a negative or indeterminate result. In such cases, another test should be performed with a new specimen in 48-72 hours. If early is suspected clinically in this setting, correlation with quantitative serum b-hCG level is suggested. TESTING PERFORMED AT [address] [address] Surgical Pathologyon 020 Surgical Pathology (NOTE) -- [...] OUT H. PYLORI (A) Gross Description SUSI ANGEL, STOMACH BIOPSY TO RULE OUT H. PYLORI STAIN Otho-johnson tissue fragments, each 0.2 x 0.2 x [...] SURGICAL PATHOLOGY CONSULTATION Patient Name: SUSI ORTIZ [facility] Rec: [id number] Path Number: [id number] [facility] ANATOMIC PATHOLOGY [address] [place] [id number] Normal [facility] Comment on above: Performed By: #### PPPVS #### [address] [id number] Utilization Coordinator: Tito Balderrama MD [id number] 04-04-2020 SARS-CoV-2 Not Detected Normal Not Detected [facility] Comment on above: Result Comment: (NOTE) This nucleic acid amplification test was developed and its performance characteristics determined by [employer]. Nucleic acid amplification tests include PCR and [...] detected) result in this assay. Performed At: [facility] [address] [facility], [place] [id number] You Naqvi MD Ph:[phone] Performed By: #### A COV #### [facility] [address] [place], [place] [id number] Utilization Coordinator: Olivier Espinosa MD Covid-19 Ambulatoryon 2019 SARS-CoV-2, ASH Not Detected Not Detected [place], [place] Comment on above: (NOTE) This nucleic acid amplification test was developed and its performance characteristics determined by [employer]. Nucleic acid amplification tests include PCR and [...] detected) result in this assay. Performed At: [facility] [address] [facility] [place] [id number] You Naqvi MD Ph:[phone] Drug Scr,Pain Mgmt Uon 01-09 7-Aminoclonazep, Ur Not Detected Normal [facility] Comment on above: Performed By: #### ADAUPM ####[facility] [facility] [place] [address] Acetaminophen mass conc Not Detected Normal [facility] Comment on above: Performed By: #### ADAUPM ####[facility] [facility] [place] [address] Bziww-KF-Pctfmv, Ur Not Detected Normal [facility] Comment on above: Performed By: #### ADAUPM ####[facility] [facility] [place] [address] Alprazolam, Ur Not Detected Normal [facility] Comment on above: Performed By: #### ADAUPM ####[facility] [facility] [place] [address] Amphetamine, Ur Not Detected Normal [facility] Comment on above: Performed By: #### ADAUPM ####[facility] [place] [address], [place] [address] Barbiturates, Ur Not Detected Normal [facility] Comment on above: Performed By: #### ADAUPM ####[facility] [place] [address], [place] [address] Benzoylecgonine, Ur Not Detected Normal [facility] Comment on above: Performed By: #### ADAUPM ####[facility] [place] [address] [place] [address] Buprenorphine, Ur Not Detected Normal [facility] Comment on above: Performed By: #### ADAUPM ####[facility] [place] [address], [place] [address] Carisoprodol, Ur Not Detected Normal [facility] Comment on above: Result Comment: (NOTE)The carisoprodol i mmunoassay has cross-reactivity to carisoprodoland meprobamate. Performed By: #### A DAUPM ####[facility] [place] [address], [place] [address] Clonazepam, Ur Not Detected Normal [facility] Comment on above: Performed By: #### ADAUPM ####[facility] [place] [address], [place] [address] Codeine, Ur Not Detected Normal [facility] Comment on above: Performed By: #### ADAUPM ####[facility] [place] [address] Creatinine 52.1 mg/dL Normal 20.0-400.0 [facility] Comment on above: Performed By: #### ADAUPM ####[facility] [place] [address] Diazepam, Ur Not Detected Normal [facility] Comment on above: Performed By: #### ADAUPM ####[address] [address] EER Hi Res Interp Ur See Note Normal [facility] Comment on above: Result Comment: (NOTE)Access [facility] ed Report using either link below:-Direct access: [email or web address] Username, Password: https://Invisible SentinelUsername: [email or web address]: [email or web address] by [employer],[address] [place] [id number] nam.[employer], Ari Lowe MD, Lab. DirectorPerformed at [facility] [address] [place] [address] Performed By: #### A DAUPM ####[facility] [place] [address] Fentanyl, Ur Not Detected Normal [facility] Comment on above: Performed By: #### ADAUPM ####[address] [address] Glucose mass conc Not Detected Normal [facility] Comment on above: Performed By: #### ADAUPM ####[address] [address] Hydrocodone, Ur Not Detected Normal [facility] Comment on above: Performed By: #### ADAUPM ####[facility] [place] [address] Hydromorphone, Ur Not Detected Normal [facility] Comment on above: Performed By: #### ADAUPM ####[facility] [place] [address] Lorazepam, Ur Not Detected Normal [facility] Comment on above: Performed By: #### ADAUPM ####[address] [address] Marijuana Metab, Ur Not Detected Normal [facility] Comment on above: Performed By: #### ADAUPM ####[address] [address] MDA, Ur Not Detected Normal [facility] Comment on above: Performed By: #### ADAUPM ####[address] [address] MDEA, Terra, Ur Not Detected Normal [facility] Comment on above: Performed By: #### ADAUPM ####[address] [address] MDMA, Ecstasy, Ur Not Detected Normal [facility] Comment on above: Performed By: #### ADAUPM ####[address] [address] Meperidine metab, Ur Not Detected Normal [facility] Comment on above: Performed By: #### ADAUPM ####[address] [address] Methadone, Ur Not Detected Normal [facility] Comment on above: Performed By: #### ADAUPM ####[facility] [place] [address] Methamphetamine, Ur Not Detected Normal [facility] Comment on above: Performed By: #### ADAUPM ####[facility] [place] [address] [place] [address] Methylphenidate Not Detected Normal [facility] Comment on above: Performed By: #### ADAUPM ####[facility] [place] [address], [place] [address] Midazolam, Ur Not Detected Normal [facility] Comment on above: Performed By: #### ADAUPM ####[facility] [place] [address], [place] [address] Morphine, Ur Not Detected Normal [facility] Comment on above: Performed By: #### ADAUPM ####[facility] [place] [address], [place] [address] Norbuprenorphine , Ur Not Detected Normal [facility] Comment on above: Performed By: #### ADAUPM ####[facility] [place] [address] [place] [address] Nordiazepam, Ur Not Detected Normal [facility] Comment on above: Performed By: #### ADAUPM ####[facility] [place] [address] [place] [address] Norfentanyl, Ur Not Detected Normal [facility] Comment on above: Performed By: #### ADAUPM ####[facility] [place] [address], [place] [address] Norhydrocodone, Ur Not Detected Normal [facility] Comment on above: Performed By: #### ADAUPM ####[address] [place] [address] Noroxycodone, Ur Not Detected Normal [facility] Comment on above: Performed By: #### ADAUPM ####[facility] [facility] [place] [address] Noroxymorphone, Ur Not Detected Normal [facility] Comment on above: Performed By: #### ADAUPM ####[facility] [facility] [place] [address] Oxazepam, Ur Not Detected Normal [facility] Comment on above: Performed By: #### ADAUPM ####[facility] [facility] [place] [address] Oxycodone, Ur Not Detected Normal [facility] Comment on above: Performed By: #### ADAUPM ####[facility] [facility] [place] [address] Oxymorphone, Ur Not Detected Normal [facility] Comment on above: Performed By: #### ADAUPM ####[facility] [facility] [place] [address] Pain Mgt [address]g Handley, Ur See Below Normal [facility] Comment on above: Result Comment: [...] was developed and its performance characteristicsdetermined by [employer]. The U.S. Food and DrugAdministration has not approved or cleared this test; however, FDAclearance or approval is not currently required for clinical use.The results are not intended to be used as the sole means forclinical diagnosis or patient management decisions. Performed By: #### A DAUPM ####[facility] [facility] [place] [address] PCP, Ur Not Detected Normal [facility] Comment on above: Performed By: #### ADAUPM ####[facility] [facility] [place] [address] Phentermine, Ur Not Detected Normal [facility] Comment on above: Performed By: #### ADAUPM ####[facility] [facility] [place] [address] Pn Mg Drg Handley Int Ur Consistent Normal [facility] Comment on above: Result Comment: (NOTE) _DRUGS EXPECTED:NO DRUGS EXPECTED ___CONSISTENT with medications provided:NO DRUGS DETECTED ___INTERPRETIVE INFORMATION:Pain Mgt Handley, High Res/EMIT, Ur, InterpInterpretation depends on accuracy and completeness of patientmedication information submitted by client. Performed By: #### A DAUPM ####[address] [address] Propoxyphene, Ur Not Detected Normal [facility] Comment on above: Performed By: #### ADAUPM ####[address] [address] Tapentadol o Sul, Ur Not Detected Normal [facility] Comment on above: Performed By: #### ADAUPM ####[address] [address] Tapentadol, Ur Not Detected Normal [facility] Comment on above: Performed By: #### ADAUPM ####[address] [address] Temazepam, Ur Not Detected Normal [facility] Comment on above: Performed By: #### ADAUPM ####[address] [address] Tramadol, Ur Not Detected Normal [facility] Comment on above: Performed By: #### ADAUPM ####[address] [address] Zolpidem, Ur Not Detected Normal [facility] Comment on above: Performed By: #### ADAUPM ####[address] [address] Drug Scr,Pain Mgmt Uon 01-06 Drugs Expected, Ur NONE Normal [facility] Comment on above: Performed By: #### ADAUPM ####[address] [address] Vital Signs Date Time Vital Sign Value Performing Clinician Facility 11-03-2023 10:45-0400 Body mass index (BMI) [Ratio] 63.34 kg/m2 Amina Nieto MD Work Phone: [facility] 11-03-2023 10:45-0400 Body weight 167.38 kg Amina Nieto MD Work Phone: [facility] 11-02-2023 12:53-0400 Body mass index (BMI) [Ratio] 63.34 kg/m2 Jayshree Huffman APRN.MEDICAL SCRIBE Work Phone: [facility] 11-02-2023 12:53-0400 Body weight 167.38 kg Jayshree Huffman APRN.MEDICAL SCRIBE Work Phone: [facility] 11-02-2023 10:22-0400 Body height 162.[address] Work Phone: [facility] 11-02-2023 10:22-0400 Body mass index (BMI) [Ratio] 63.48 kg/m2 Rupinder Sayra RD Work Phone: [facility] 11-02-2023 10:22-0400 Body weight 167.[address] Work Phone: [facility] Comment on above: verbal 09-07-2023 09:30-0400 Body height 162.6 cm Jayshree Huffman APRN.MEDICAL SCRIBE Work Phone: [facility] 09-07-2023 09:30-0400 Body temperature 98.01 [degF] Jayshree Huffman APRN.MEDICAL SCRIBE Work Phone: [facility] 09-07-2023 09:30-0400 Body weight 169.87 kg Jayshree Huffman APRN.MEDICAL SCRIBE Work Phone: [facility] 09-07-2023 09:30-0400 Diastolic blood pressure 81 mm[Hg] Jayshree Huffman APRN.MEDICAL SCRIBE Work Phone: [facility] 09-07-2023 09:30-0400 Heart rate 80 /min Jayshree Nathanael JUSTICE PROFESSOR.MEDICAL SCRIBE Work Phone: [facility] 09-07-2023 09:30-0400 Systolic blood pressure 107 mm[Hg] Jayshree Huffman JUSTICE PROFESSOR.MEDICAL SCRIBE Work Phone: [facility] 08-31-2023 12:07-0500 Body height 162.[address] Work Phone: [facility] 08-31-2023 12:07-0500 Body weight 164.[address] Work Phone: [facility] 08-19-2023 12:14-0500 Body height 162.[address] Work Phone: [facility] 08-19-2023 12:14-0500 Body weight 167.[address] Work Phone: [facility] 08-17-2023 09:52-0500 Body height 162.6 cm Jayshree Huffman JUSTICE PROFESSOR.MEDICAL SCRIBE Work Phone: [facility] 08-17-2023 09:52-0500 Body temperature 97.3 [degF] Jayshree Huffman APRN.MEDICAL SCRIBE Work Phone: [facility] 08-17-2023 09:52-0500 Body weight 167.8 kg Jayshree Huffman APRN.MEDICAL SCRIBE Work Phone: [facility] 08-17-2023 09:52-0500 Diastolic blood pressure 75 mm[Hg] Jayshree Huffman APRN.MEDICAL SCRIBE Work Phone: [facility] 08-17-2023 09:52-0500 Heart rate 75 /min Jayshree Huffman APRN.MEDICAL SCRIBE Work Phone: [facility] 08-17-2023 09:52-0500 SaO2% (BldA) [Mass fraction] 97 % Jayshree Huffman APRN.MEDICAL SCRIBE Work Phone: [facility] 08-17-2023 09:52-0500 Systolic blood pressure 117 mm[Hg] Jayshree Huffman JUSTICE PROFESSOR.MEDICAL SCRIBE Work Phone: [facility] 03-10-2023 13:33-0400 Body height 162.6 cm Pacc 2 Work Phone: [facility] 03-10-2023 13:33-0400 Body temperature 97 [degF] Pacc 2 Work Phone: [facility] 03-10-2023 13:33-0400 Body weight 181.44 kg Pacc 2 Work Phone: [facility] 03-10-2023 13:33-0400 Diastolic blood pressure 66 mm[Hg] Pacc 2 Work Phone: [facility] 03-10-2023 13:33-0400 Heart rate 73 /min Pacc 2 Work Phone: [facility] 03-10-2023 13:33-0400 Respiratory rate 16 /min Pacc 2 Work Phone: [facility] 03-10-2023 13:33-0400 SaO2% (BldA) [Mass fraction] 97 % Pacc 2 Work Phone: [facility] 03-10-2023 13:33-0400 Systolic blood pressure 138 mm[Hg] Pacc 2 Work Phone: [facility] 03-05-2023 12:54-0400 Body height [address] Work Phone: [facility] 12-15-2022 15:09-0400 Body height [address] Work Phone: [facility] 12-15-2022 15:09-0400 Body weight 174.[address] Work Phone: [facility] 12-13-2022 09:30-0400 Body height 162.56 cm Linda South Other [employer] Other 12-13-2022 09:30-0400 Body mass index (BMI) [Ratio] 66.08 kg/m2 Linda South Other [facility] Other 12-13-2022 09:30-0400 Body temperature 98.2 [degF] Linda Zhangley Other [facility] Other 12-13-2022 09:30-0400 Body weight 174.64 kg Linda Zhangley Other [facility] Other 12-13-2022 09:30-0400 Respiratory rate 18 /min Linda Zhangley Other [facility] Other 12-13-2022 09:30-0400 SaO2% (BldA) [Mass fraction] 96 % Linda Zhangley Other [facility] Other 06-04-2022 11:04-0500 Body weight 185.07 kg Amina Nieto MD Work Phone: [facility] 04-16-2022 19:25-0400 Body height 162.56 cm Christa Nayeli Other [employer] Other 04-16-2022 19:25-0400 Body mass index (BMI) [Ratio] 60.07 kg/m2 Christa Nayeli Other [facility] Other 04-16-2022 19:25-0400 Body temperature 98.6 [degF] Christa Nayeli Other [facility] Other 04-16-2022 19:25-0400 Body weight 158.76 kg Christa Nayeli Other [facility] Other 04-16-2022 19:25-0400 Respiratory rate 18 /min Christa Nayeli Other [facility] Other 04-16-2022 19:25-0400 SaO2% (BldA) [Mass fraction] 97 % Christa Tyler Other [facility] Other 01-17-2022 09:12-0400 Body height [address] Work Phone: [facility] 01-17-2022 09:12-0400 Body weight 179.[address] Work Phone: [facility] 12-18-2021 12:45-0400 Diastolic blood pressure 103 mm[Hg] Joe Granda MD Work Phone: [facility] 12-18-2021 12:45-0400 SaO2% (BldA) [Mass fraction] 100 % Joe Granda MD Work Phone: [facility] 12-18-2021 12:45-0400 Systolic blood pressure 123 mm[Hg] Joe Granda MD Work Phone: [facility] 12-18-2021 12:34-0400 Body temperature 96.91 [degF] Joe Granda MD Work Phone: [facility] 12-18-2021 12:34-0400 Heart rate 106 /min Joe Granda MD Work Phone: [facility] 12-18-2021 12:34-0400 Respiratory rate 20 /min Joe Granda MD Work Phone: [facility] 11-13-2021 11:30-0400 Body height 162.56 cm Christa Tyler Other [facility] Other 11-13-2021 11:30-0400 Body mass index (BMI) [Ratio] 68.65 kg/m2 Christa Tyler Other [facility] Other 11-13-2021 11:30-0400 Body temperature 98.3 [degF] Christa Tyler Other [facility] Other 11-13-2021 11:30-0400 Body weight 181.44 kg Christa Tyler Other [facility] Other 11-13-2021 11:30-0400 Diastolic blood pressure 77 mm[Hg] Christa Tyler Other [facility] Other 11-13-2021 11:30-0400 Respiratory rate 18 /min Christa Tyler Other [facility] Other 11-13-2021 11:30-0400 SaO2% (BldA) [Mass fraction] 100 % Christa Tyler Other [facility] Other 11-13-2021 11:30-0400 Systolic blood pressure 125 mm[Hg] Christa Tyler Other [facility] Other 11-04-2021 12:44-0400 Body height [address] Work Phone: [facility] 11-04-2021 12:44-0400 Body weight 184.[address] Work Phone: [facility] 11-04-2021 11:13-0400 Body height 160 cm Joe Granda MD Work Phone: [facility] 11-04-2021 11:13-0400 Body weight 184.61 kg Joe Granda MD Work Phone: [facility] 11-04-2021 11:13-0400 Diastolic blood pressure 74 mm[Hg] Joe Granda MD Work Phone: [facility] 11-04-2021 11:13-0400 Heart rate 86 /min Joe Granda MD Work Phone: [facility] 11-04-2021 11:13-0400 Systolic blood pressure 133 mm[Hg] Joe Granda MD Work Phone: [facility] 10-11-2021 14:45-0400 Body height 162.56 cm Bambi Gonzalez Other [facility] Other 10-11-2021 14:45-0400 Body mass index (BMI) [Ratio] 64.36 kg/m2 Bambi Gonzalez Other [facility] Other 10-11-2021 14:45-0400 Body temperature 97.3 [degF] Bambi Gonzalez Other [facility] Other 10-11-2021 14:45-0400 Body weight 170.1 kg Bambi Gonzalez Other [facility] Other 10-11-2021 14:45-0400 Respiratory rate 26 /min Bambi Gonzalez Other [facility] Other 10-11-2021 14:45-0400 SaO2% (BldA) [Mass fraction] 94 % Bambi Gonzalez Other [facility] Other 10-03-2021 13:25-0400 Body height 162.56 cm Rupinder Blakely Other [facility] Other 10-03-2021 13:25-0400 Body mass index (BMI) [Ratio] 68.82 kg/m2 Rupinder Reddy Other [facility] Other 10-03-2021 13:25-0400 Body temperature 97.5 [degF] Rupinder Reddy Other [facility] Other 10-03-2021 13:25-0400 Body weight 181.89 kg Rupinder Blakely Other [facility] Other 10-03-2021 13:25-0400 Diastolic blood pressure 57 mm[Hg] Rupinder Blakely Other [facility] Other 10-03-2021 13:25-0400 Respiratory rate 18 /min Rupinder Blakely Other [facility] Other 10-03-2021 13:25-0400 SaO2% (BldA) [Mass fraction] 99 % Rupinder Blakely Other [facility] Other 10-03-2021 13:25-0400 Systolic blood pressure 118 mm[Hg] Rupinder Blakely Other [facility] Other 09-30-2021 09:03-0400 Body height 162.56 cm Prince Horvath Work Phone: [id number] 206[facility] Work Phone: 09-30-2021 09:03-0400 Body mass index (BMI) [Ratio] 60.08 kg/m2 Prince Horvath Work Phone: [id number] [facility] Work Phone: 09-30-2021 09:03-0400 Body surface area Derived from formula 2.48 m2 Prince Horvath Work Phone: [id number]-Vjuzogk 206[facility] Work Phone: 09-30-2021 09:03-0400 Body weight 158.76 kg Prince Horvath Work Phone: IL-OGIZH-Yuorklr [facility] Work Phone: 09-30-2021 09:03-0400 2 1 Prince Horvath Work Phone: [id number]-Syrodkv [facility] Work Phone: Comment on above: GRAV PARA 09-30-2021 09:03-0400 0 1 Prince Horvath Work Phone: [id number]-Tjujjvt 206[facility] IV[facility] Work Phone: Comment on above: [employer] 09-23-2021 11:00-0400 Body height 160 cm Jayshree Huffman JUSTICE PROFESSOR.MEDICAL SCRIBE Work Phone: [facility] 09-23-2021 11:00-0400 Body weight 165.56 kg Jayshree Huffman JUSTICE PROFESSOR.MEDICAL SCRIBE Work Phone: [facility] 05-17-2021 11:18-0500 Body height 160 cm Humza Walter MD Work Phone: [facility] 05-17-2021 11:18-0500 Body mass index (BMI) [Ratio] 68.09 kg/m2 Humza Walter MD Work Phone: [facility] 05-17-2021 11:18-0500 Body temperature 96.3 [degF] Humza Walter MD Work Phone: [facility] 05-17-2021 11:18-0500 Body weight 174.36 kg Humza Walter MD Work Phone: [facility] 05-17-2021 11:18-0500 Diastolic blood pressure 77 mm[Hg] Humza Walter MD Work Phone: [facility] 05-17-2021 11:18-0500 Heart rate 75 /min Humza aWlter MD Work Phone: [facility] 05-17-2021 11:18-0500 SaO2% (BldA) [Mass fraction] 95 % Humza Walter MD Work Phone: [facility] 05-17-2021 11:18-0500 Systolic blood pressure 133 mm[Hg] Humza Walter MD Work Phone: [facility] 04-06-2020 09:25-0400 BP Diastolic 77 mm[Hg] [facility] 04-06-2020 09:25-0400 BP Systolic 129 mm[Hg] [facility] 04-06-2020 09:25-0400 Pulse (Heart Rate) 85 /min [facility] 04-06-2020 09:25-0400 Pulse Oximetry 100 % Kylah [facility], [facility] 04-06-2020 09:25-0400 Respiratory Rate 17 /min Kylah [facility] 04-06-2020 08:54-0400 Body Temperature 97.81 [degF] Kylah [facility] 04-06-2020 08:06-0400 BMI (Body Mass Index) 64.68 kg/m2 Kylah [facility] 04-06-2020 08:06-0400 Body weight 165.62 kg Kylah [facility], [facility] 04-06-2020 08:06-0400 Height 160 cm [facility] En[facility]ters Encounter Date Encounter Type Care Provider Facility Start: 03-17-2024 End: 03-17-2024 ambulatory PAUL COLINDRES Not Available Start: 03-07-2024 End: 03-07-2024 ambulatory KIKO SEXTONZIO [...] 12-07-2023 Evaluation and management of inpatient YOSHI Kumar [facility] Start: 12-02-2023 End: 12-02-2023 Evaluation and management of inpatient OTILIO LEON [facility] Start: 11-27-2023 End: 11-27-2023 ambulatory [facility] Facility:[facility] Start: 11-17-2023 End: 11-17-2023 ambulatory OTILIO LEON Not Available Start: 11-11-2023 End: 11-11-2023 ambulatory BUSHRA LEWIS Not Available Start: 11-04-2023 End: 11-04-2023 Evaluation and management of inpatient YOSHI DELGADO [facility] Start: 11-04-2023 End: 11-04-2023 Evaluation and management of inpatient OTILIO [facility] Start: 11-03-2023 End: 11-03-2023 Admission to same day surgery center Amina Nieto MD Work Phone: General Surgery Comment on above: BMI 60.0-69.9, adult (HCC) (Primary Dx); S/P bariatric surgery Start: 11-03-2023 End: 11-03-2023 Telemedicine consultation with patient Amina Nieto MD Work Phone: General Surgery Start: 11-03-2023 End: 11-03-2023 ambulatory AMINA NIETO Facility:[facility] Start: 11-02-2023 End: 11-02-2023 Admission to [...] bariatric surgery Start: 11-02-2023 End: 11-02-2023 [facility] Start: 11-02-2023 End: 11-02-2023 Telemedicine consultation with patient Rupinder Colbert RD Work Phone: General Surgery Start: 10-28-2023 End: 10-28-2023 ambulatory ELIZABET SIMENTAL Facility:[facility] Start: 10-20-2023 End: 10-20-2023 ambulatory OTILIO [facility] Start: 10-20-2023 Encounter for other preprocedural examination [facility] Start: 10-20-2023 End: 10-22-2023 ambulatory [facility] Start: 10-13-2023 End: 10-13-2023 ambulatory OTILIO PRITCHETTSTON Not Available Start: 10-07-2023 End: 10-07-2023 ambulatory BUSHRA NORIEGAALISON Not Available Start: 09-16-2023 End: 09-16-2023 ambulatory KIKO SANCHEZO Not Available Start: 09-07-2023 End: 09-07-2023 ambulatory JOE GRANDA Facility:[facility] Start: 09-07-2023 End: 09-07-2023 Patient encounter procedure Jayshree Huffman APRN.CNP Work Phone: General Surgery Comment on above: [...] Start: 08-31-2023 End: 08-31-2023 ambulatory JOE GRANDA Facility:[facility] Start: 08-31-2023 End: 08-31-2023 Telemedicine consultation with patient Rupinder Colbert RD Work Phone: [facility] Start: 08-19-2023 End: 08-19-2023 ambulatory Alex [...] Alex Monsivais RD Work Phone: [facility] Start: 08-17-2023 End: 08-17-2023 ambulatory JOE GRANDA Facility:[facility] Start: 08-17-2023 End: 08-17-2023 Patient encounter procedure Jayshree Huffman APRN.[employer]ICAL SCRIBE Work Phone: Endocrinology BMI Comment on above: S/P gastrointestinal surgery, follow-up exam (Primary Dx); Status post biliopancreatic diversion with duodenal switch; Post-operative nausea and vomiting Start: 08-13-2023 Telephone encounter Niki Peterson RN General Surgery Comment on above: Post Op Start: 08-04-2023 End: 08-11-2023 Evaluation and management of inpatient JOE GRANDA Facility:[facility] Start: 08-03-2023 Telephone encounter Silvia Curry RN General Surgery Start: 07-22-2023 End: 07-22-2023 ambulatory ELIZABET SIMENTAL Facility:[facility] Start: 07-22-2023 Encounter for other preprocedural examination JOE GRANDA [facility] Start: 07-21-2023 End: 07-21-2023 ambulatory JOE GRANDA Facility:[facility] Start: 07-20-2023 End: 07-20-2023 ambulatory JOE GRANDA Facility:[facility] Start: 07-14-2023 End: 07-14-2023 ambulatory ELIZABET SIMENTAL Facility:[facility] Start: 07-13-2023 End: 07-13-2023 ambulatory ELIZABET SIMENTAL Facility:[facility] Start: 05-09-2023 [facility] Joe Granda MD Work Phone: Endocrinology BMI Comment on above: About surgery Start: 05-09-2023 ambulatory Joe izquierdo MD Work Phone: [facility] Start: 05-08-2023 ambulatory Joe izquierdo MD Work Phone: General Surgery Comment on above: Confirming Or Date Start: 05-08-2023 E-mail encounter fro m caregiver Joe Granda MD Work Phone: Start: 04-30-2023 End: 04-30-2023 ambulatory SHAUNNA PERSAUD Facility:[facility] Start: 04-27-2023 Telephone encounter Joe sargent MD Work Phone: Endocrinology BMI Start: 04-13-2023 End: 04-13-[address] Work Phone: General Surgery Comment on above: Patient left without being seen (Primary Dx) Start: 04-13-2023 End: 04-13-2023 Telemedicine consultation with patient Rupinder Sayra OLIVAS Work Phone: [facility] Start: 03-31-2023 End: 04-01-2023 Evaluation and management of inpatient JOE GRANDA Facility:[facility] Start: 03-10-2023 End: 03-10-2023 PAT [facility] [place] [address] Work Phone: Pre Anesthesia Comment on above: Pre-op evaluation (P rimary Dx); Morbid obesity with body mass index of 60.0-69.9 in adult ([facility]); Gastroesophageal reflux disease, unspecified whether esophagitis present; TONEY on CPAP; Bipolar affective disorder, remission status unspecified ([facility]); Thrombocytosis; Migraine without status migrainosus, not intractable, unspecified migraine type Surgery question Start: 03-10-2023 End: 03-10-2023 Preprocedural examination done Pac [place] [facility] Work Phone: [facility] Work Phone: Start: 03-05-2023 End: 03-05-2023 [facility] Mireille Davismichelle OLIVAS Work Phone: General Surgery Comment on above: Weight gain followin g gastric bypass surgery (Primary Dx); Abnormal weight gain; Preop testing; Snoring; Sleep-disordered breathing; Fatigue, unspecified type; S/P bariatric surgery; S/P gastric sleeve procedure; Dietary counseling and surveillance; BMI 60.0-69.9, adult (HCC) Start: 03-05-2023 End: 03-05-2023 Patient encounter status Mireille Davismichelle OLIVAS Work Phone: [facility] Work Phone: Start: 02-26-2023 End: 02-26-2023 ambulatory [facility] Facility:[facility] Start: 01-23-2023 End: 01-23-2023 [facility] Facility:[facility] Start: 01-15-2023 End: 01-15-2023 ambulatory [facility] Facility:[facility] Start: 01-15-2023 Encounter for other preprocedural examination JOE GRANDA [facility] Start: 01-09-2023 End: 01-09-2023 ambulatory JOE GRANDA Facility:[facility] Start: 01-05-2023 Telephone encounter Joe sargent MD Work Phone: Endocrinology BMI Comment on above: Schedule Surgery (DS ) Start: 12-15-2022 End: 12-15-2022 Admission to same day surgery center Mireille Thelma OLIVAS Work Phone: General Surgery Comment on above: S/P gastric sleeve p rocedure (Primary Dx); Weight gain following gastric bypass surgery; BMI 60.0-69.9, adult (HCC); Dietary counseling and surveillance Start: 12-15-2022 End: 12-15-2022 ambulatory MIREILLE DAO Facility:[facility] Start: 12-15-2022 End: 12-15-2022 Telemedicine consultation with patient Mireille Davismichelle OLIVAS Work Phone: [facility] Start: 12-13-2022 Office outpatient vi sit 15 minutes Linda South [facility] Start: 12-13-2022 End: 12-13-2022 ambulatory Linda South [facility] [employer] Other Start: 12-03-2022 Admission to [facility] Joe Granda MD Work Phone: General Surgery Comment on above: Insurance Authorizat ion (Not Real Surgery Date) Start: 12-03-2022 ambulatory Joe izquierdo MD Work Phone: Start: 11-03-2022 End: 11-04-[address] DOCTOR ALFARO Facility:[facility] Start: 08-27-2022 End: 08-28-[address] DOCTOR ALFARO Facility:[facility] Start: 08-19-2022 End: 08-19-2022 ambulatory MICHELLE GOMEZ . Facility:[facility] Start: 08-17-2022 Encounter for other preprocedural examination DR DOCTOR ALFARO [facility] Start: 08-12-2022 End: 08-13-[address] DOCTOR ALFARO Facility:[facility] Start: 08-12-2022 End: 08-13-2022 Encounter for other preprocedural examination DR DOCTOR ALFARO Facility:[facility] Start: 07-22-[address] DOCTOR ALFARO Facility :[facility] Start: 06-04-2022 End: 06-04-2022 [facility] Amina Nieto MD Work Phone: [...] 04-16-2022 End: 04-16-2022 ambulatory Christa Tyler Facility:[facility] Start: 04-16-2022 End: 04-16-2022 Patient encounter procedure [facility] Start: 04-16-2022 End: 04-16-2022 ambulatory Joe Granda MD Work Phone: Endocrinology BMI Comment on above: Morbid obesity with body mass index of 60.0-69.9 in adult (HCC) (Primary Dx); Gastroesophageal reflux disease, unspecified whether esophagitis present Start: 04-16-2022 End: 04-16-2022 Telemedicine consultation with patient Joe Granda MD Work Phone: [facility] Start: 04-16-2022 End: 04-16-2022 ambulatory NON STAFF [facility] Work Phone: Start: 04-16-2022 Office outpatient vi sit 15 minutes Christa Tyler [facility] Start: 04-15-2022 ambulatory Pao Hodgson RN Work Phone: Endocrinology BMI Comment on above: Upper GI Series Start: 04-15-2022 E-mail encounter fro m caregiver Pao Hodgson RN Work Phone: [facility] Start: 04-11-2022 End: 04-12-[address] ESTELLA WHITEHEAD Facility:[facility] Start: 04-01-2022 End: 04-01-[address] KAT Martínez Facility:[facility] Start: 03-27-2022 End: 03-27-2022 ambulatory Rob Garcia Other [facility] [employer] Other Start: 03-27-2022 Telephone encounter Rob Zaldivar Gastroenterology Start: 03-10-2022 End: 03-10-2022 ambulatory Joe Granda MD Work Phone: Endocrinology BMI Comment on above: History of sleeve ga strectomy (Primary Dx) Start: 03-10-2022 End: 03-10-2022 Telemedicine consultation with patient Joe Granda MD Work Phone: [facility] Start: 02-17-2022 End: 02-17-2022 ambulatory Joe Granda MD Work Phone: Endocrinology BMI Comment on above: NO SHOW (Primary Dx) Start: 02-17-2022 End: 02-17-2022 Telemedicine consultation with patient Joe Granda MD Work Phone: [facility] Start: 02-12-2022 End: 02-12-2022 Subsequent hospital visit by physician [facility] Work Phone: [facility] Radiology [...] Joe Granda MD Work Phone: [facility] Start: 01-17-2022 End: 01-17-2022 ambulatory Alex Monsivais [...] with patient Akosua Peraza RD Work Phone: [facility] Start: 11-13-2021 End: 11-13-2021 ambulatory Christa Tyler Other [employer] Other Start: 11-13-2021 Office outpatient vi sit [...] 10-28-2021 End: 10-28-2021 ambulatory Estella Nguyen Other [employer] Other Start: 10-28-2021 Telephone encounter Estella Nguyen [facility] Start: 10-23-2021 End: 10-23-2021 ambulatory Celsa Argueta Other [employer] Other Start: 10-23-2021 Telephone encounter Celsa Argueta [facility] Start: 10-11-2021 End: 10-11-2021 ambulatory Bambi Gonzalez Other [employer] Other Start: 10-11-2021 Patient encounter procedure Bambi Gonzalez [facility] Start: 10-03-2021 End: 10-03-2021 ambulatory Rupinder Blakely Other [place] [employer] Other Start: 10-03-2021 Office outpatient vi sit 25 minutes Rupinder Blakely [facility] Start: 09-30-2021 Office consultation new/estab patient 40 min Prince Horvath Work Phone: [id number] Work Phone: Start: 09-25-2021 Orders Only Joe izquierdo MD Work Phone: General Surgery Comment on above: Dysphagia, unspecifi ed type (Primary Dx); Gastroesophageal reflux disease, unspecified whether esophagitis present; History of sleeve gastrectomy Start: 09-24-2021 E-mail encounter rajiv m caregiver Jayshree Nathanael [facility] Work Phone: [facility] Start: 09-24-2021 Follow-up encounter Jayshree tilley APRN.MEDICAL SCRIBE Work Phone: General Surgery Comment on above: Appointment follow u p Start: 09-23-2021 End: 09-23-2021 ambulatory Jayshree Sampsonjustyna [facility] Work Phone: General Surgery Comment on above: Gastroesophageal ref lux disease, unspecified whether esophagitis present (Primary Dx); Class 3 severe obesity with serious comorbidity and body mass index (BMI) of 60.0 to 69.9 in adult, unspecified obesity type (HCC); TONEY on CPAP; S/P laparoscopic sleeve gastrectomy; Postoperative malabsorption Start: 09-23-2021 End: 09-23-2021 Telemedicine consultation with patient Jayshree Huffman [employer] Work Phone: [facility] Start: 05-17-2021 End: 05-17-2021 Office outpatient new 45 minutes Humza Walter MD Work Phone: [facility] Comment on above: S/P laparoscopic sle terra gastrectomy (Primary Dx); TONEY on CPAP; Morbid obesity with body mass index of 50 or higher; Gastroesophageal reflux disease, unspecified whether esophagitis present; Screening for viral disease; Other intestinal malabsorption Start: 04-06-2020 End: 04-06-2020 Patient encounter procedure KYLAH VARGAS [facility] Start: 04-06-2020 End: 04-06-2020 Subsequent hospital visit by physician Kylah Vargas Work Phone: [facility] Comment on above: S/P laparoscopic sle terra gastrectomy (Primary Dx) Start: 04-02-2020 End: 04-07-2020 Patient encounter procedure CHANA THOMAS [facility] Start: 04-02-2020 Patient encounter procedure ELIZABET MARTINEZAZRoro [facility] Start: 04-02-2020 End: 04-06-2020 Subsequent hospital visit by physician Franklin Covid19 Pat Screening Schedule MTHZ PRE ADMIT Comment on above: Preop testing Start: 01-06-2017 End: 01-07-2017 Ambulatory GENEVA OJEDAKATHY [facility] Procedures Date Procedure Procedure Detail Performing Clinician Start: 08-04-2023 History of gastrointestinal tract bypass S/P biliopancreatic diversion with duodenal switch Rupinder Colbert RD Work Phone: Start: 07-22-2023 Antibody screen JOE GRANDA Comment on above: Order Comment: Specimen Type: BLOOD SPEC IMEN Ordering Facility: [facility] Address: [address] [place] [address] Performed By: #### 2 [id number], [id number] #### [facility] CLIA [id number] [address] [place] [address] [place] Start: 04-16-2022 X-ray of right foot Start: 02-12-2022 Ct abdomen & pelvis w/contrast material Joe Granda MD Work Phone: Start: 12-18-2021 Esophagogastroduodenoscopy transoral diagnostic Jayshree Huffman APRN.[employer]ICAL S[employer]IBE Work Phone: Start: 08-19-2021 Adult depression screening assessment Jayshree Huffman APRN.[employer]E Work Phone: Start: 04-06-2020 Level iv surg pathology gross&microscopic exam KYLAH VARGAS Start: 04-06-2020 DISCHARGE PATIENT KYLAH VARGAS Start: 04-06-2020 ASSESS KYLAH VARGAS Start: 04-06-2020 BEDREST KYLAH VARGAS Start: 04-06-2020 ENCOURAGE DEEP BREATHING AND COUGHING KYLAH VARGAS Start: 04-06-2020 INITIATE OXYGEN THERAPY PROTOCOL KYLAH VARGAS Start: 04-06-2020 NEURO/VASCULAR CHECKS KYLAH ALICIA Start: 04-06-2020 NOTIFY PHYSICIAN (SPECIFY) KYLAH RAMIREZ [...] DRUG SCREEN, PAIN GENEVA ASHISH Cholecystectomy Prince giles Work Phone: Decompression of median nerve Prince Horvath Work Phone: Comment on above: Bilateral; History of gastroint estinal tract bypass Status post biliopancreatic diversion with duodenal switch Jayshree Huffman JUSTICE PROFESSOR.[employer]ICAL [employer]CRIBE Work Phone: History of gastroint estinal tract bypass S/P biliopancreatic diversion with duodenal switch Alex Monsivais RD Work Phone: History of gastroint estinal tract bypass S/P biliopancreatic diversion with duodenal switch Jayshree Huffman JUSTICE PROFESSOR.MEDICAL SCRIBE Work Phone: History of gastroint estinal tract bypass S/P biliopancreatic diversion with duodenal switch Jayshree Huffman JUSTICE PROFESSOR.MEDICAL SCRIBE Work Phone: Rajwinder Elizondo Work Phone: Plan of Treatment Date Care Activity Detail Author Start: 08-11-2029 DTaP/Tdap/Td vaccine (2 - Td) DTaP/Tdap/Td vaccine (2 - Td) [place] Start: 08-11-2029 Urine microalbumin profile DTaP,Tdap,Td Vaccine (2 - Td or Tdap) [facility] Start: 01-03-2025 Meningococcal (ACWY) vaccine (3 - Risk start after 7 months 2-dose series) Meningococcal (ACWY) vaccine (3 - Risk start after 7 months 2-dose series) [place], [place] Start: 05-05-2024 End: 05-05-2024 Patient encounter procedure Endocrinology BMI Comment on above: 6 mo post op Start: 04-19-2024 End: 04-19-2024 Follow-up encounter 04/19/2024 11:30 AM EDT [facility] General Surgery [address] [place] [address] Amina Nieto MD [address] [place] [address] FOLLOW UP General Surgery Comment on above: FOLLOW UP Start: 02-28-2024 Covid-19 Vaccine ( season) Covid-19 Vaccine ( season) [facility] Start: 02-28-2024 Influenza vaccination [facility] Start: 02-10-2024 End: 02-10-2024 Follow-up encounter 02/10/2024 2:15 PM EDT [facility] Endocrinology BMI [address] [place] [address] Amina Nieto MD [address] [place] [address] follow up Endocrinology BMI Comment on above: follow up Start: 11-18-2023 End: 11-18-2023 ambulatory 11/18/2023 11:30 AM EDT Results Only [facility] [address] [place] [address] [place] [address] [facility] Start: 10-26-2023 End: 01-25-2024 25-hydroxyvitamin D3 [Mass/volume] in Serum or Plasma VITAMIN D 25 HYDROXY Lab Routine S/P biliopancreatic diversion with duodenal switch Impaired intestinal absorption Expected: 10/26/2023 (Approximate), Expires: 01/25/2024 [facility] Work Phone: Comment on above: Expected: 10/26/2023 (Approximate), Expi res: 01/25/2024 Start: 10-26-2023 End: 01-25-2024 Alpha tocopherol [Mass/volume] in Serum or Plasma VITAMIN E/TOCOPHEROL Lab Routine S/P biliopancreatic diversion with duodenal switch Impaired intestinal absorption Expected: 10/26/2023 (Approximate), Expires: 01/25/2024 [facility] Work Phone: Comment on above: Expected: 10/26/2023 (Approximate), Expi res: 01/25/2024 Start: 10-26-2023 End: 01-25-2024 CBC panel - Blood by Automated count CBC Lab Routine S/P biliopancreatic diversion with duodenal switch Open abdominal incision with drainage, subsequent encounter Impaired intestinal absorption Expected: 10/26/2023 (Approximate), Expires: 01/25/2024 [facility] Work Phone: Comment on above: Expected: 10/26/2023 (Approximate), Expi res: 01/25/2024 Start: 10-26-2023 End: 01-25-2024 Cobalamin (Vitamin B12) [Mass/volume] in Serum or Plasma VITAMIN B12 BLOOD Lab Routine S/P biliopancreatic diversion with duodenal switch Impaired intestinal absorption Expected: 10/26/2023 (Approximate), Expires: 01/25/2024 [facility] Work Phone: Comment on above: Expected: 10/26/2023 (Approximate), Expi res: 01/25/2024 Start: 10-26-2023 End: 01-25-2024 Comprehensive metabolic 2000 panel - Serum or Plasma COMP METABOLIC PANEL Lab Routine S/P biliopancreatic diversion with duodenal switch Impaired intestinal absorption Expected: 10/26/2023 (Approximate), Expires: 01/25/2024 [facility] Work Phone: Comment on above: Expected: 10/26/2023 (Approximate), Expi res: 01/25/2024 Start: 10-26-2023 End: 01-25-2024 Ferritin [Mass/volume] in Serum or Plasma FERRITIN BLD Lab Routine S/P biliopancreatic diversion with duodenal switch Impaired intestinal absorption Expected: 10/26/2023 (Approximate), Expires: 01/25/2024 [facility] Work Phone: Comment on above: Expected: 10/26/2023 (Approximate), Expi res: 01/25/2024 Start: 10-26-2023 End: 01-25-2024 Folate [Mass/volume] in Serum or Plasma FOLATE SERUM Lab Routine S/P biliopancreatic diversion with duodenal switch Impaired intestinal absorption Expected: 10/26/2023 (Approximate), Expires: 01/25/2024 [facility] Work Phone: Comment on above: Expected: 10/26/2023 (Approximate), Expi res: 01/25/2024 Start: 10-26-2023 End: 01-25-2024 Hemoglobin A1c in Blood HGB A1C Lab Routine S/P biliopancreatic diversion with duodenal switch Impaired intestinal absorption Expected: 10/26/2023 (Approximate), Expires: 01/25/2024 [facility] Work Phone: Comment on above: Expected: 10/26/2023 (Approximate), Expi res: 01/25/2024 Start: 10-26-2023 End: 01-25-2024 Iron and Iron binding capacity panel - Serum or Plasma IRON + TIBC Lab Routine S/P biliopancreatic diversion with duodenal switch Impaired intestinal absorption Expected: 10/26/2023 (Approximate), Expires: 01/25/2024 [facility] Work Phone: Comment on above: Expected: 10/26/2023 (Approximate), Expi res: 01/25/2024 Start: 10-26-2023 End: 01-25-2024 Parathyrin.intact [Mass/volume] in Serum or Plasma PTH INTACT BLD Lab Routine S/P biliopancreatic diversion with duodenal switch Impaired intestinal absorption Expected: 10/26/2023 (Approximate), Expires: 01/25/2024 [facility] Work Phone: Comment on above: Expected: 10/26/2023 (Approximate), Expi res: 01/25/2024 Start: 10-26-2023 End: 01-25-2024 Retinol [Mass/volume] in Serum or Plasma VITAMIN A/RETINOL Lab Routine S/P biliopancreatic diversion with duodenal switch Impaired intestinal absorption Expected: 10/26/2023 (Approximate), Expires: 01/25/2024 [facility] Work Phone: Comment on above: Expected: 10/26/2023 (Approximate), Expi res: 01/25/2024 Start: 10-26-2023 End: 01-25-2024 VITAMIN B1 (THIAMINE), WHOLE BLOOD VITAMIN B1 (THIAMINE), WHOLE BLOOD Lab Routine S/P biliopancreatic diversion with duodenal switch Impaired intestinal absorption Expected: 10/26/2023 (Approximate), Expires: 01/25/2024 [facility] Work Phone: Comment on above: Expected: 10/26/2023 (Approximate), Expi res: 01/25/2024 Start: 10-26-2023 End: 01-25-2024 VITAMIN K VITAMIN K Lab Routine S/P biliopancreatic diversion with duodenal switch Impaired intestinal absorption Expected: 10/26/2023 (Approximate), Expires: 01/25/2024 [facility] Work Phone: Comment on above: Expected: 10/26/2023 (Approximate), Expi res: 01/25/2024 Start: 10-26-2023 End: 01-25-2024 Zinc [Mass/volume] in Serum or Plasma ZINC BLD Lab Routine S/P biliopancreatic diversion with duodenal switch Impaired intestinal absorption Expected: 10/26/2023 (Approximate), Expires: 01/25/2024 [facility] Work Phone: Comment on above: Expected: 10/26/2023 (Approximate), Expi res: 01/25/2024 Start: 06-29-2023 Depression Assessment Depression Assessment [facility] Start: 02-27-2023 Covid-19 Vaccine () Covid-19 Vaccine () [facility] Start: 02-27-2023 Influenza vaccination [facility] Start: 08-19-2022 Adult depression screening assessment DEPRESSION SCREENING [facility] Start: 06-29-2022 DEPRESSION ASSESSMENT DEPRESSION ASSESSMENT [facility] Start: 05-13-2022 End: 08-23-2022 Coagulation factor VIII activity actual/normal in Platelet poor plasma by Coagulation assay FACTOR VIII:C ASSAY Lab Routine BMI 70 and over, adult (HCC) Gastroesophageal reflux disease, unspecified whether esophagitis present Expected: 05/13/2022 (Approximate), Expires: 08/23/2022 [facility] Work Phone: Comment on above: Expected: 05/13/2022 (Approximate), Expi res: 08/23/2022 Start: 05-13-2022 End: 08-23-2022 CONFIRM BLOOD TYPE CONFIRM BLOOD TYPE Blood Bank Routine BMI 70 and over, adult (HCC) Gastroesophageal reflux disease, unspecified whether esophagitis present Expected: 05/13/2022 (Approximate), Expires: 08/23/2022 [facility] Work Phone: Comment on above: Expected: 05/13/2022 (Approximate), Expi res: 08/23/2022 Start: 05-13-2022 End: 08-23-2022 TYPE AND SCREEN,30 DAY TYPE AND SCREEN,30 DAY Blood Bank Routine BMI 70 and over, adult (HCC) Gastroesophageal reflux disease, unspecified whether esophagitis present Expected: 05/13/2022 (Approximate), Expires: 08/23/2022 [facility] Work Phone: Comment on above: Expected: 05/13/2022 (Approximate), Expi res: 08/23/2022 Start: 03-10-2022 End: 05-10-2022 25-hydroxyvitamin D3 [Mass/volume] in Serum or Plasma VITAMIN D 25 HYDROXY Lab Routine History of sleeve gastrectomy Expected: 03/10/2022, Expires: 05/10/2022 [facility] Work Phone: Comment on above: Expected: 03/10/2022, Expires: 2 Start: 03-10-2022 End: 05-10-2022 CBC W Auto Differential panel - Blood CBC + DIFF Lab Routine History of sleeve gastrectomy Expected: 03/10/2022, Expires: 05/10/2022 [facility] Work Phone: Comment on above: Expected: 03/10/2022, Expires: 2 Start: 03-10-2022 End: 05-10-2022 Cobalamin (Vitamin B12) [Mass/volume] in Serum or Plasma VITAMIN B12 BLOOD Lab Routine History of sleeve gastrectomy Expected: 03/10/2022, Expires: 05/10/2022 [facility] Work Phone: Comment on above: Expected: 03/10/2022, Expires: 2 Start: 03-10-2022 End: 05-10-2022 Comprehensive metabolic 2000 panel - Serum or Plasma COMP METABOLIC PANEL Lab Routine History of sleeve gastrectomy Expected: 03/10/2022, Expires: 05/10/2022 [facility] Work Phone: Comment on above: Expected: 03/10/2022, Expires: 2 Start: 03-10-2022 End: 05-10-2022 Folate [Mass/volume] in Serum or Plasma FOLATE SERUM Lab Routine History of sleeve gastrectomy Expected: 03/10/2022, Expires: 05/10/2022 [facility] Work Phone: Comment on above: Expected: 03/10/2022, Expires: 2 Start: 03-10-2022 End: 05-10-2022 Iron and Iron binding capacity panel - Serum or Plasma IRON + TIBC Lab Routine History of sleeve gastrectomy Expected: 03/10/2022, Expires: 05/10/2022 [facility] Work Phone: Comment on above: Expected: 03/10/2022, Expires: 2 Start: 03-10-2022 End: 05-10-2022 Prealbumin [Mass/volume] in Serum or Plasma PREALBUMIN BLD Lab Routine History of sleeve gastrectomy Expected: 03/10/2022, Expires: 05/10/2022 [facility] Work Phone: Comment on above: Expected: 03/10/2022, Expires: 2 Start: 03-10-2022 End: 05-10-2022 VITAMIN B1 (THIAMINE), WHOLE BLOOD VITAMIN B1 (THIAMINE), WHOLE BLOOD Lab Routine History of sleeve gastrectomy Expected: 03/10/2022, Expires: 05/10/2022 [facility] Work Phone: Comment on above: Expected: 03/10/2022, Expires: 2 Start: 02-27-2022 Influenza vaccination INFLUENZA (#1) [facility] Start: 12-01-2021 COVID-19 VACCINE (3 - Booster for Pfizer series) COVID-19 VACCINE (3 - Booster for Pfizer series) [facility] Start: 11-04-2021 End: 01-04-2022 CBC W Auto Differential panel - Blood CBC + DIFF Lab Routine History of sleeve gastrectomy Expected: 11/04/2021, Expires: 01/04/2022 [facility] Work Phone: Comment on above: Expected: 11/04/2021, Expires: 2 Start: 11-04-2021 End: 01-04-2022 Comprehensive metabolic 2000 panel - Serum or Plasma COMP METABOLIC PANEL Lab Routine History of sleeve gastrectomy Expected: 11/04/2021, Expires: 01/04/2022 [facility] Work Phone: Comment on above: Expected: 11/04/2021, Expires: 2 Start: 11-04-2021 End: 01-04-2022 Folate [Mass/volume] in Serum or Plasma FOLATE SERUM Lab Routine History of sleeve gastrectomy Expected: 11/04/2021, Expires: 01/04/2022 [facility] Work Phone: Comment on above: Expected: 11/04/2021, Expires: 2 Start: 11-04-2021 End: 01-04-2022 IRON + TIBC IRON + TIBC Lab Routine History of sleeve gastrectomy Expected: 11/04/2021, Expires: 01/04/2022 [facility] Work Phone: Comment on above: Expected: 11/04/2021, Expires: 2 Start: 11-04-2021 End: 01-04-2022 LIPID PANEL BASIC LIPID PANEL BASIC Lab Routine History of sleeve gastrectomy Expected: 11/04/2021, Expires: 01/04/2022 [facility] Work Phone: Comment on above: Expected: 11/04/2021, Expires: 2 Start: 11-04-2021 End: 01-04-2022 Prealbumin [Mass/volume] in Serum or Plasma PREALBUMIN BLD Lab Routine History of sleeve gastrectomy Expected: 11/04/2021, Expires: 01/04/2022 [facility] Work Phone: Comment on above: Expected: 11/04/2021, Expires: 2 Start: 11-04-2021 End: 01-04-2022 VITAMIN B1 (THIAMINE), WHOLE BLOOD VITAMIN B1 (THIAMINE), WHOLE BLOOD Lab Routine History of sleeve gastrectomy Expected: 11/04/2021, Expires: 01/04/2022 [facility] Work Phone: Comment on above: Expected: 11/04/2021, Expires: 2 Start: 11-04-2021 End: 01-04-2022 VITAMIN B12 BLOOD VITAMIN B12 BLOOD Lab Routine History of sleeve gastrectomy Expected: 11/04/2021, Expires: 01/04/2022 [facility] Work Phone: Comment on above: Expected: 11/04/2021, Expires: 2 Start: 11-04-2021 End: 01-04-2022 VITAMIN D 25 HYDROXY VITAMIN D 25 HYDROXY Lab Routine History of sleeve gastrectomy Expected: 11/04/2021, Expires: 01/04/2022 [facility] Work Phone: Comment on above: Expected: 11/04/2021, Expires: 2 Start: 09-23-2021 End: 11-23-2021 CBC panel - Blood by Automated count CBC Lab Routine Gastroesophageal reflux disease, unspecified whether esophagitis present Class 3 severe obesity with serious comorbidity and body mass index (BMI) of 60.0 to 69.9 in adult, unspecified obesity type (HCC) Postoperative malabsorption Expected: 09/23/2021, Expires: 11/23/2021 [facility] Work Phone: Comment on above: Expected: 09/23/2021, Expires: 2 Start: 09-23-2021 End: 11-23-2021 Choriogonadotropin ( test) [Presence] in Urine HCG QUAL UR Lab Routine Gastroesophageal reflux disease, unspecified whether esophagitis present Class 3 severe obesity with serious comorbidity and body mass index (BMI) of 60.0 to 69.9 in adult, unspecified obesity type (HCC) Postoperative malabsorption Expected: 09/23/2021, Expires: 11/23/2021 [facility] Work Phone: Comment on above: Expected: 09/23/2021, Expires: 2 Start: 09-23-2021 End: 11-23-2021 Comprehensive metabolic 2000 panel - Serum or Plasma COMP METABOLIC PANEL Lab Routine Gastroesophageal reflux disease, unspecified whether esophagitis present Class 3 severe obesity with serious comorbidity and body mass index (BMI) of 60.0 to 69.9 in adult, unspecified obesity type (HCC) Postoperative malabsorption Expected: 09/23/2021, Expires: 11/23/2021 [facility] Work Phone: Comment on above: Expected: 09/23/2021, Expires: 2 Start: 09-23-2021 End: 11-23-2021 FERRITIN BLD FERRITIN BLD Lab Routine Gastroesophageal reflux disease, unspecified whether esophagitis present Class 3 severe obesity with serious comorbidity and body mass index (BMI) of 60.0 to 69.9 in adult, unspecified obesity type (HCC) Postoperative malabsorption Expected: 09/23/2021, Expires: 11/23/2021 [facility] Work Phone: Comment on above: Expected: 09/23/2021, Expires: 2 Start: 09-23-2021 End: 11-23-2021 Folate [Mass/volume] in Serum or Plasma FOLATE SERUM Lab Routine Gastroesophageal reflux disease, unspecified whether esophagitis present Class 3 severe obesity with serious comorbidity and body mass index (BMI) of 60.0 to 69.9 in adult, unspecified obesity type (HCC) Postoperative malabsorption Expected: 09/23/2021, Expires: 11/23/2021 [facility] Work Phone: Comment on above: Expected: 09/23/2021, Expires: 2 Start: 09-23-2021 End: 11-23-2021 Hemoglobin A1c/Hemoglobin.total in Blood HGB A1C Lab Routine Gastroesophageal reflux disease, unspecified whether esophagitis present Class 3 severe obesity with serious comorbidity and body mass index (BMI) of 60.0 to 69.9 in adult, unspecified obesity type (HCC) Postoperative malabsorption Expected: 09/23/2021, Expires: 11/23/2021 [facility] Work Phone: Comment on above: Expected: 09/23/2021, Expires: 2 Start: 09-23-2021 End: 11-23-2021 IRON + TIBC IRON + TIBC Lab Routine Gastroesophageal reflux disease, unspecified whether esophagitis present Class 3 severe obesity with serious comorbidity and body mass index (BMI) of 60.0 to 69.9 in adult, unspecified obesity type (HCC) Postoperative malabsorption Expected: 09/23/2021, Expires: 11/23/2021 [facility] Work Phone: Comment on above: Expected: 09/23/2021, Expires: 2 Start: 09-23-2021 End: 11-23-2021 LIPID PANEL BASIC LIPID PANEL BASIC Lab Routine Gastroesophageal reflux disease, unspecified whether esophagitis present Class 3 severe obesity with serious comorbidity and body mass index (BMI) of 60.0 to 69.9 in adult, unspecified obesity type (HCC) Postoperative malabsorption Expected: 09/23/2021, Expires: 11/23/2021 [facility] Work Phone: Comment on above: Expected: 09/23/2021, Expires: 2 Start: 09-23-2021 End: 11-23-2021 NICOTINE & METAB, UR NICOTINE & METAB, UR Lab Routine Gastroesophageal reflux disease, unspecified whether esophagitis present Class 3 severe obesity with serious comorbidity and body mass index (BMI) of 60.0 to 69.9 in adult, unspecified obesity type (HCC) Postoperative malabsorption Expected: 09/23/2021, Expires: 11/23/2021 [facility] Work Phone: Comment on above: Expected: 09/23/2021, Expires: 2 Start: 09-23-2021 End: 11-23-2021 PTH INTACT BLD PTH INTACT BLD Lab Routine Gastroesophageal reflux disease, unspecified whether esophagitis present Class 3 severe obesity with serious comorbidity and body mass index (BMI) of 60.0 to 69.9 in adult, unspecified obesity type (HCC) Postoperative malabsorption Expected: 09/23/2021, Expires: 11/23/2021 [facility] Work Phone: Comment on above: Expected: 09/23/2021, Expires: 2 Start: 09-23-2021 End: 11-23-2021 Thyrotropin [Units/volume] in Serum or Plasma TSH BLD Lab Routine Gastroesophageal reflux disease, unspecified whether esophagitis present Class 3 severe obesity with serious comorbidity and body mass index (BMI) of 60.0 to 69.9 in adult, unspecified obesity type (HCC) Postoperative malabsorption Expected: 09/23/2021, Expires: 11/23/2021 [facility] Work Phone: Comment on above: Expected: 09/23/2021, Expires: 2 Start: 09-23-2021 End: 11-23-2021 TOX SCREEN ROUT UR TOX SCREEN ROUT UR Lab Routine Gastroesophageal reflux disease, unspecified whether esophagitis present Class 3 severe obesity with serious comorbidity and body mass index (BMI) of 60.0 to 69.9 in adult, unspecified obesity type (HCC) Postoperative malabsorption Expected: 09/23/2021, Expires: 11/23/2021 [facility] Work Phone: Comment on above: Expected: 09/23/2021, Expires: 2 Start: 09-23-2021 End: 11-23-2021 VITAMIN B1 (THIAMINE), WHOLE BLOOD VITAMIN B1 (THIAMINE), WHOLE BLOOD Lab Routine Gastroesophageal reflux disease, unspecified whether esophagitis present Class 3 severe obesity with serious comorbidity and body mass index (BMI) of 60.0 to 69.9 in adult, unspecified obesity type (HCC) Postoperative malabsorption Expected: 09/23/2021, Expires: 11/23/2021 [facility] Work Phone: Comment on above: Expected: 09/23/2021, Expires: 2 Start: 09-23-2021 End: 11-23-2021 VITAMIN B12 BLOOD VITAMIN B12 BLOOD Lab Routine Gastroesophageal reflux disease, unspecified whether esophagitis present Class 3 severe obesity with serious comorbidity and body mass index (BMI) of 60.0 to 69.9 in adult, unspecified obesity type (HCC) Postoperative malabsorption Expected: 09/23/2021, Expires: 11/23/2021 [facility] Work Phone: Comment on above: Expected: 09/23/2021, Expires: 2 Start: 09-23-2021 End: 11-23-2021 VITAMIN D 25 HYDROXY VITAMIN D 25 HYDROXY Lab Routine Gastroesophageal reflux disease, unspecified whether esophagitis present Class 3 severe obesity with serious comorbidity and body mass index (BMI) of 60.0 to 69.9 in adult, unspecified obesity type (HCC) Postoperative malabsorption Expected: 09/23/2021, Expires: 11/23/2021 [facility] Work Phone: Comment on above: Expected: 09/23/2021, Expires: 2 Start: 08-28-2021 COVID-19 VACCINE (3 - Booster for Pfizer series) COVID-19 VACCINE (3 - Booster for Pfizer series) [facility] Start: 08-28-2021 COVID-19 VACCINE (3 - Pfizer series) COVID-19 VACCINE (3 - Pfizer series) [facility] Start: 06-29-2021 DEPRESSION ASSESSMENT DEPRESSION ASSESSMENT [facility] Start: 05-30-2021 End: 05-30-2021 Nutrition therapy 05/30/2021 Clinical Support Encounter Nutrition and Dietetics Angelo Cedillo, RD [address] [place] [address] [facility] Start: 05-17-2021 End: 05-17-2022 B12/folate level B12 & FOLATE Lab Routine S/P laparoscopic sleeve gastrectomy TONEY on CPAP Morbid obesity with body mass index of 50 or higher Gastroesophageal reflux disease, unspecified whether esophagitis present Other intestinal malabsorption Expected: 05/17/2021, Expires: 05/17/2022 [facility] Comment on above: Expected: 05/17/2021, Expires: 2 Start: 05-17-2021 End: 05-17-2022 Complete blood count with white cell differential, automated CBC, EDIF, PLATELET Lab Routine S/P laparoscopic sleeve gastrectomy TONEY on CPAP Morbid obesity with body mass index of 50 or higher Gastroesophageal reflux disease, unspecified whether esophagitis present Other intestinal malabsorption Expected: 05/17/2021, Expires: 05/17/2022 [facility] Comment on above: Expected: 05/17/2021, Expires: 2 Start: 05-17-2021 End: 05-17-2022 Comprehensive metabolic 2000 panel - Serum or Plasma COMPREHENSIVE METABOLIC PANEL Lab Routine S/P laparoscopic sleeve gastrectomy TONEY on CPAP Morbid obesity with body mass index of 50 or higher Gastroesophageal reflux disease, unspecified whether esophagitis present Other intestinal malabsorption Expected: 05/17/2021, Expires: 05/17/2022 [facility] Comment on above: Expected: 05/17/2021, Expires: 2 Start: 05-17-2021 End: 05-17-2022 Diagnostic radiography of chest, combined PA and lateral XR CHEST PA AND LATERAL Imaging Routine S/P laparoscopic sleeve gastrectomy TONEY on CPAP Morbid obesity with body mass index of 50 or higher Gastroesophageal reflux disease, unspecified whether esophagitis present Other intestinal malabsorption Expected: 05/17/2021, Expires: 05/17/2022 [facility] Comment on above: Expected: 05/17/2021, Expires: 2 Start: 05-17-2021 End: 05-17-2022 Fluoroscopy of upper gastrointestinal tract XR FLUORO UPPER GI, WATER SOLUBLE AND/OR BARIUM CONTRAST Imaging Routine S/P laparoscopic sleeve gastrectomy Gastroesophageal reflux disease, unspecified whether esophagitis present Expected: 05/17/2021, Expires: 05/17/2022 [facility] Comment on above: Expected: 05/17/2021, Expires: 2 Start: 05-17-2021 End: 05-17-2022 Hemoglobin A1c/Hemoglobin.total in Blood HEMOGLOBIN A1C Lab Routine S/P laparoscopic sleeve gastrectomy TONEY on CPAP Morbid obesity with body mass index of 50 or higher Gastroesophageal reflux disease, unspecified whether esophagitis present Other intestinal malabsorption Expected: 05/17/2021, Expires: 05/17/2022 [facility] Comment on above: Expected: 05/17/2021, Expires: 2 Start: 05-17-2021 End: 05-17-2022 IRON/IRON BINDING/TRANSFERRIN IRON/IRON BINDING/TRANSFERRIN Lab Routine S/P laparoscopic sleeve gastrectomy TONEY on CPAP Morbid obesity with body mass index of 50 or higher Gastroesophageal reflux disease, unspecified whether esophagitis present Other intestinal malabsorption Expected: 05/17/2021, Expires: 05/17/2022 [facility] Comment on above: Expected: 05/17/2021, Expires: 2 Start: 05-17-2021 End: 05-17-2022 LIPID PANEL W CALCULATED LDL LIPID PANEL W CALCULATED LDL Lab Routine S/P laparoscopic sleeve gastrectomy TONEY on CPAP Morbid obesity with body mass index of 50 or higher Gastroesophageal reflux disease, unspecified whether esophagitis present Other intestinal malabsorption Expected: 05/17/2021, Expires: 05/17/2022 [facility] Comment on above: Expected: 05/17/2021, Expires: 2 Start: 05-17-2021 End: 05-17-2022 NOVEL CORONAVIRUS LAB 1 - NASOPHARYNGEAL NOVEL CORONAVIRUS LAB 1 - NASOPHARYNGEAL Microbiology STAT Screening for viral disease Expected: 05/17/2021, Expires: 05/17/2022 [facility] Comment on above: Expected: 05/17/2021, Expires: 2 Start: 05-17-2021 End: 05-17-2022 Standard ECG ECG ECG Routine S/P laparoscopic sleeve gastrectomy TONEY on CPAP Morbid obesity with body mass index of 50 or higher Gastroesophageal reflux disease, unspecified whether esophagitis present Other intestinal malabsorption Expected: 05/17/2021, Expires: 05/17/2022 [facility] Comment on above: Expected: 05/17/2021, Expires: 2 Start: 05-17-2021 End: 05-17-2022 Thyrotropin [Units/volume] in Serum or Plasma TSH Lab Routine S/P laparoscopic sleeve gastrectomy TONEY on CPAP Morbid obesity with body mass index of 50 or higher Gastroesophageal reflux disease, unspecified whether esophagitis present Other intestinal malabsorption Expected: 05/17/2021, Expires: 05/17/2022 [facility] Comment on above: Expected: 05/17/2021, Expires: 2 Start: 05-17-2021 End: 05-17-2022 VITAMIN B1 VITAMIN B1 Lab Routine S/P laparoscopic sleeve gastrectomy TONEY on CPAP Morbid obesity with body mass index of 50 or higher Gastroesophageal reflux disease, unspecified whether esophagitis present Other intestinal malabsorption Expected: 05/17/2021, Expires: 05/17/2022 [facility] Comment on above: Expected: 05/17/2021, Expires: 2 Start: 05-17-2021 End: 05-17-2022 VITAMIN D (25-HYDROXY,TOTAL) VITAMIN D (25-HYDROXY,TOTAL) Lab Routine S/P laparoscopic sleeve gastrectomy TONEY on CPAP Morbid obesity with body mass index of 50 or higher Gastroesophageal reflux disease, unspecified whether esophagitis present Other intestinal malabsorption Expected: 05/17/2021, Expires: 05/17/2022 [facility] Comment on above: Expected: 05/17/2021, Expires: 2 Start: 05-17-2021 End: 05-17-2022 ZINC, SERUM ZINC, SERUM Lab Routine S/P laparoscopic sleeve gastrectomy TONEY on CPAP Morbid obesity with body mass index of 50 or higher Gastroesophageal reflux disease, unspecified whether esophagitis present Other intestinal malabsorption Expected: 05/17/2021, Expires: 05/17/2022 [facility] Comment on above: Expected: 05/17/2021, Expires: 2 Start: 02-27-2021 Influenza vaccination INFLUENZA VACCINE (#1) [facility] Start: 04-06-2020 End: 04-06-2021 FL UGI FL UGI Imaging Routine S/P laparoscopic sleeve gastrectomy Expected: 04/06/2020, Expires: 04/06/2021 [place] Comment on above: Expected: 04/06/2020, Expires: 1 Start: 02-28-2020 Influenza vaccination Flu vaccine (#1) [place], [place] Start: 02-27-2020 Pneumococcal 0-64 years Vaccine (2 of 3 - PPSV23) Pneumococcal 0-64 years Vaccine (2 of 3 - PPSV23) [place], [place] Start: 08-31-2019 Hepatitis B Vaccine (3 of 3 - 19+ 3-dose series) Hepatitis B Vaccine (3 of 3 - 19+ 3-dose series) [facility] Start: 2015 HPV TESTING HPV TESTING [facility] Start: 2015 Screening for malignant neoplasm of cervix HPV Testing [facility] Start: 10-16-2011 PAP TESTING PAP TESTING [facility] Start: 10-16-2011 Screening for malignant neoplasm of cervix Pap Testing [facility] Start: 10-15-2009 Screening for malignant neoplasm of cervix Cervical Cancer Screening [facility] Start: 2006 Screening for malignant neoplasm of cervix [facility] Start: 2004 Third diphtheria, tetanus and acellular pertussis (DTaP) vaccination TDAP (ADULT) [facility] Start: 2004 Urine microalbumin profile DTAP,TDAP,TD (1 - Tdap) [facility] Start: 2003 Anxiety Screening Anxiety Screening [facility] Start: 2003 Depression Screening Depression Screening [facility] Start: 2003 HEPATITIS C SCREENING HEPATITIS C SCREENING [facility] Start: 2003 Hepatitis C screening Hepatitis C Screening [facility] Start: 2003 HIV SCREENING HIV SCREENING [facility] Start: 2003 HIV screening HIV Screening [facility] Start: 2003 Tetanus vaccination TETANUS [facility] Start: 2000 HIV screening [facility] Start: 1995 Meningococcal B vaccine (1 of 4 - Increased Risk Bexsero 2-dose series) Meningococcal B vaccine (1 of 4 - Increased Risk Bexsero 2-dose series) [place], [place] Start: 1990 COVID-19 VACCINE (1) COVID-19 VACCINE (1) [facility] Start: 1986 Varicella vaccine (1 of 2 - 2-dose childhood series) Varicella vaccine (1 of 2 - 2-dose childhood series) [place] Start: 1985 HEPATITIS B (1 of 3 - 3-dose series) HEPATITIS B (1 of 3 - 3-dose series) [facility] Start: 1985 Hepatitis C antibody, confirmatory test HEPATITIS C VIRUS SCREENING [facility] End: 04-02-2020 COVID-19 Ambulatory COVID-19 Ambulatory Lab Routine Preop testing 1 Occurrences starting 04/02/2020 until 04/02/2020 [place], [place] Comment on above: 1 Occurrences starting 04/02/2020 until 04/02/2020 End: 12-04-2022 Ct abdomen & pelvis w/contrast material CT ABD/PEL W IVCON Radiology Routine History of sleeve gastrectomy Gastric fistula 1 Occurrences starting 11/04/2021 until 12/04/2022 [facility] Work Phone: Comment on above: 1 Occurrences starting 11/04/2021 until 12/04/2022 End: 09-23-2022 ECG COMPLETE ECG COMPLETE ECG Routine TONEY on CPAP Gastroesophageal reflux disease, unspecified whether esophagitis present Class 3 severe obesity with serious comorbidity and body mass index (BMI) of 60.0 to 69.9 in adult, unspecified obesity type (HCC) Postoperative malabsorption 1 Occurrences starting 09/23/2021 until 09/23/2022 [facility] Work Phone: Comment on above: 1 Occurrences starting 09/23/2021 until 09/23/2022 End: 05-31-2023 ECG COMPLETE ECG COMPLETE ECG Routine Abnormal weight gain Preop testing Snoring Sleep-disordered breathing Fatigue, unspecified type S/P bariatric surgery BMI 70 and over, adult ([facility]) 1 Occurrences starting 06/04/2022 until 05/31/2023 [facility] Work Phone: Comment on above: 1 Occurrences starting 06/04/2022 until 05/31/2023 End: 03-10-2024 ECG COMPLETE ECG COMPLETE ECG Routine Pre-op evaluation Morbid obesity with body mass index of 60.0-69.9 in adult ([facility]) Gastroesophageal reflux disease, unspecified whether esophagitis present TONEY on CPAP Bipolar affective disorder, remission status unspecified ([facility]) Thrombocytosis Migraine without status migrainosus, not intractable, unspecified migraine type 1 Occurrences starting 03/10/2023 until 03/10/2024 [facility] Work Phone: Comment on above: 1 Occurrences starting 03/10/2023 until 03/10/2024 Oxygen therapy [[facility] Data Set] Initiate Oxygen Therapy Protocol Respiratory Care Routine Daily until discontinued starting 04/06/2020 [employer] Comment on above: Daily until discontinued starting 2019 Phase I & II - meter ed glucose Phase I & II - metered glucose Point of Care Testing Routine As Needed until discontinued starting 04/06/2020 [employer] Comment on above: As Needed until discontinued starting End: 05-31-2023 Polysomnogram POLYSOMNOGRAM (PSG) Procedures Routine Abnormal weight gain Preop testing Snoring Sleep-disordered breathing Fatigue, unspecified type S/P bariatric surgery BMI 70 and over, adult ([facility]) 1 Occurrences starting 06/04/2022 until 05/31/2023 [facility] Work Phone: Comment on above: 1 Occurrences starting 06/04/2022 until 05/31/2023 End: 10-23-2022 Radiologic exam chest 2 views XR CHEST 2V FRONTAL/LAT Radiology Routine TONEY on CPAP Gastroesophageal reflux disease, unspecified whether esophagitis present Class 3 severe obesity with serious comorbidity and body mass index (BMI) of 60.0 to 69.9 in adult, unspecified obesity type ([facility]) Postoperative malabsorption 1 Occurrences starting 09/23/2021 until 10/23/2022 [facility] Work Phone: Comment on above: 1 Occurrences starting 09/23/2021 until 10/23/2022 End: 05-18-2023 Radiologic exam chest 2 views XR CHEST 2V FRONTAL/LAT Radiology Routine BMI 70 and over, adult (HCC) Gastroesophageal reflux disease, unspecified whether esophagitis present 1 Occurrences starting 04/18/2022 until 05/18/2023 [facility] Work Phone: Comment on above: 1 Occurrences starting 04/18/2022 until 05/18/2023 End: 07-01-2023 Radiologic exam chest 2 views XR CHEST 2V FRONTAL/LAT Radiology Routine Abnormal weight gain Preop testing Snoring Sleep-disordered breathing Fatigue, unspecified type S/P bariatric surgery BMI 70 and over, adult (HCC) 1 Occurrences starting 06/04/2022 until 07/01/2023 [facility] Work Phone: Comment on above: 1 Occurrences starting 06/04/2022 until 07/01/2023 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 Procedures Routine BMI 70 and over, adult (HCC) Gastroesophageal reflux disease, unspecified whether esophagitis present Ordered: 04/18/2022 [facility] Work Phone: Comment on above: Ordered: 04/18/2022 Surgical Pathology Surgical Path ology Lab Routine Release Upon Ordering for 1 Occurrences starting 04/06/2020 [place] Comment on above: Release Upon Ordering [...] (HCC) 1 Occurrences starting 09/23/2021 until 10/23/2022 [facility] Work Phone: Comment on above: 1 Occurrences starting 09/23/2021 until 10/23/2022 End: 12-04-2022 XR UPPER GI SINGLE CONTRAST XR UPPER GI SINGLE CONTRAST Radiology Routine History of sleeve gastrectomy Gastric fistula 1 Occurrences starting 11/04/2021 until 12/04/2022 [facility] Work Phone: Comment on above: 1 Occurrences starting 11/04/2021 until 12/04/2022 [facility] Immunizations Immunization Date Immunization Notes Care Provider Octavio camacho 06-13-2021 Influenza, injectabl e, Madin [place] Canine Kidney, preservative free, quadrivalent Pac 2 Work Phone: [facility] 06-13-2021 influenza virus vacc ine, unspecified formulation Pac 2 Work Phone: [facility] 01-04-2020 meningococcal oligosaccharide (groups A, C, Y and W-135) diphtheria toxoid conjugate vaccine (MCV4O) Pac 2 Work Phone: [facility] 01-04-2020 meningococcal vaccin e of unknown formulation and unknown serogroups [place] 01-02-2020 pneumococcal conjuga te vaccine, 13 valent Pac 2 Work Phone: [facility] 01-02-2020 tuberculin skin test ; purified protein derivative solution, intradermal Amina Nieto MD Work Phone: [facility] 12-26-2019 tuberculin skin test ; purified protein derivative solution, intradermal Amina Nieto MD Work Phone: [facility] 08-11-2019 tetanus toxoid, redu herbie diphtheria toxoid, and acellular pertussis vaccine, adsorbed Pacc 2 Work Phone: [facility] 06-20-2019 influenza, injectabl e, quadrivalent, preservative free Pacc 2 Work Phone: [facility] 06-07-2019 influenza, injectabl e, quadrivalent, preservative free Pacc 2 Work Phone: [facility] 05-30-2019 influenza, high dose seasonal, preservative-free Pacc 2 Work Phone: [facility] 04-04-2019 hepatitis B vaccine, adult dosage Pacc 2 Work Phone: [facility] 03-02-2019 hepatitis B vaccine, adult dosage Pacc 2 Work Phone: [facility] 05-12-2017 influenza, injectabl e, quadrivalent, preservative free Pacc 2 Work Phone: [facility] 04-27-2015 influenza, injectabl e, madin [place] canine kidney, preservative free Pacc 2 Work Phone: [facility] 12-18-2014 haemophilus influenz ae type b vaccine, PRP-T conjugate Pacc 2 Work Phone: [facility] 12-18-2014 meningococcal oligosaccharide (groups A, C, Y and W-135) diphtheria toxoid conjugate vaccine (MCV4O) Pacc 2 Work Phone: [facility] Payers Date Payer Category Payer Medicaid [id number] 2022 Self-pay [id number] 2020 Medicaid [id number] 2020 Unknown [id number] [id number].3.6 [id number] 2014 Unknown [id number] 1985 Unknown [id number] 2.16.840.1.646658.3.579.2.177 1985 Unknown [id number] 2.16.840.1.520644.3.579.2.173 1985 Unknown [id number] 2.16.840.1.453135.3.579.2.175 1985 Unknown [id number] 2.16.840.1.236265.3.579.2.593 1985 Unknown [id number] 2.16.840.1.807335.3.579.2.593 1985 Unknown [id number] 2.16.840.1.040189.3.579.2.593 1985 Unknown [id number] 2.16.840.1.457041.3.579.2.593 1985 Unknown [id number] 2.16.840.1.152237.3.579.2.593 1985 Unknown [id number] 2.16.840.1.177454.3.579.2.593 1985 Unknown [id number] 2.16.840.1.741836.3.579.2.593 1985 Unknown [id number] 2.16.840.1.871158.3.579.2.593 1985 Unknown [id number] 2.16.840.1.888119.3.579.2.1286 1985 Unknown [id number] 2.16.840.1.830325.3.579.2.1286 1985 Unknown [id number] 2.16.840.1.842557.3.579.2.1286 1985 Unknown [id number] 2.16.840.1.418987.3.579.2.1286 1985 Unknown [id number] 2.16.840.1.605684.3.579.2.1286 1985 Unknown [id number] 2.16.840.1.684434.3.579.2.1286 1985 Unknown [id number] 2.16.840.1.866196.3.579.2.1286 1985 Unknown [id number] 2.16.840.1.106049.3.579.2.1286 1985 Unknown [id number] 2.16.840.1.266478.3.579.2.1285 1985 Unknown [id number] 2.16.840.1.208436.3.579.2.1258 1985 Unknown [id number] 2.16.840.1.666097.3.579.2.1258 1985 Unknown [id number] 2.16.840.1.278202.3.579.2.1258 1985 Unknown [id number] 2.16.840.1.993880.3.579.2.1258 1985 Unknown [id number] 2.16.840.1.270838.3.579.2.1258 1985 Unknown [id number] 2.16.840.1.724533.3.579.2.1258 1985 Unknown [id number] 2.16.840.1.935583.3.579.2.1258 1985 Unknown [id number] 2.16.840.1.937988.3.579.2.1258 1985 Unknown [id number] 2.16.840.1.492562.3.579.2.1258 1985 Unknown [id number] 2.16.840.1.588665.3.579.2.1258 1985 Unknown [id number] 2.16.840.1.536666.3.579.2.1258 1985 Unknown [id number] 2.16.840.1.253074.3.579.2.9 1959 Unknown [id number] 2.16.840.1.490658.19 Unknown [facility] MEDICAID Unknown [id number] 2.16.840.1.085160.3.579.2.531 Unknown [id number] 2.16840.1.324070.3.579.2.531 Social History Date Type Detail Facility Start: 04-06-2020 End: 03-10-2023 Tobacco smoking status NHIS Former smoker [facility] Start: 04-06-2020 Tobacco use and exposure Former user [place] Start: 04-06-2020 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 intake 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 (finding) [place], [place] Start: 1985 Sex Assigned At Not on file [place] Start: 10-25-2021 End: 02-12-2022 Exposure to SARS-CoV-2 (event) Not sure [place] Start: 05-17-2021 Tobacco smoking stat us [facility] Never smoked tobacco [facility] Start: 05-17-2021 End: 03-10-2023 Tobacco use and exposure Smokeless tobacco non-user [facility] Start: 05-17-2021 Alcohol intake Lifetime non-d suresh (finding) [facility] Start: 12-27-2008 End: 12-27-2013 History of tobacco use Current smoker [facility] Start: 12-27-2008 End: 12-27-2013 History of tobacco use Cigarette Smoker [facility] Start: 05-06-2019 End: 01-15-2023 Cigarettes smoked current (pack per day) - Reported 0.5 [facility] 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; Start: 09-23-2021 End: 11-02-2023 Alcohol intake Ex-drinker (finding) [facility] Start: 09-23-2021 History SDOH Alcohol Comment None since 2012 [facility] Start: 1985 Sex Assigned At Female [facility] Start: 12-05-2021 End: 01-15-2023 Sex Assigned At [facility] Adult Depression Screening Assessment 0 [facility] Start: 07-09-2021 Gender identity Identifies as female gender (finding) [facility] Start: 07-09-2021 Sexual orientation Heterosexual (davide vital) [facility] Has the electric, [employer] s, oil, or water company threatened to shut off services in your home in past 12Mo No [facility] (I/We) worried wheandrew er (my/our) food would run out before (I/we) got money to buy more. Never true [facility] Clinical Notes 05-17-2021 to 11-03-2023 Amina Nieto MD - 11/03/2023 11:00 AM EDTPatient InstructionsJayshree Huffman APRN.KATTY - 11/02/2023 12:52 PM EDTPatient InstructionsRupinder Colbert RD - 11/02/2023 9:45 AM EDTPatient Instructions Note Date & Type Note Facility 11-03-2023 History of Presen t illness Narrative I have communicated my name and active licensure. The patient's identity and physical location were verified at the time of this visit. 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 (OTHER): -11/02/23 OV BMI/MTanya Huffman -11/02/23 OV BMI/Nutrition/Kristen Colbert CARDIAC: -Procedure Date : Mar 10 2023 EKG Diagnosis: NORMAL SINUS RHYTHM NORMAL ECG documented in this encounter [facility] 11-03-2023 Note HNO ID: [id number] Author: AMINA NIETO MD Service: ? Author Type: Physician Type: Progress Notes Filed: 11/04/2023 16:46 Note Text: I have communicated my name and active licensure. The patient's identity and physical location were verified at the time of this visit. 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 [facility] 11-02-2023 Instructions Jayshree Huffman APRN.CNP - 11/02/2023 4:43 PM EDT Please make a follow up with Dr Nieto for help with further weight loss. You can call the [employer] [phone] to schedule. Let me know if you have trouble getting an appointment documented in this encounter [facility] 11-02-2023 Note HNO ID: [id number] Author: JAYSHREE HUFFMAN APRN.CNP Service: ? Author Type: Nurse Practitioner Type: Progress Notes Filed: 11/02/2023 16:45 Note Text: BMI SURGERY Post Op Clinic Note - virtual visit I have communicated my name and active licensure. The patient's identity and physical location were verified at the time of this visit. Either the patient or their legal delivery representative has been informed of the risks [...] loss: 8.623 kg (19 lb 0.2 oz) Hermann weight: 66.1 kg (145 lb 10.6 oz) [...] deli black forest 3 slices and cheese (italian 2 slices) Snack yesterday - 000 yogurt [...] increased (more content not included)... [facility] 11-02-2023 History of Presen t illness Narrative BMI SURGERY Post Op Clinic Note - virtual visit I have communicated my name and active licensure. The patient's identity and physical location were verified at the time of this visit. Either the patient or their legal delivery representative has been informed of the risks [...] loss: 8.623 kg (19 lb 0.2 oz) Hermann weight: 66.1 kg (145 lb 10.6 oz) [...] deli black forest 3 slices and cheese (italian 2 slices) Snack yesterday - 000 yogurt [...] Follow up with OM and BRENDON Huffman APRN.KATTY Medical Decision Making: Problems: Moderate: 1+ chronic illnesses with change and 2+ stable chronic illnesses Data: Unique test result(s) reviewed: 3+ Risk: Low: Low risk from testing/treatment Medical Decision Making Level: 4 - Moderate documented in this encounter [facility] 11-02-[address] - 11/02/2023 10:34 AM EDT Reviewed nutrition principles of: 1. Continue to take all recommended vitamin/minerals -ProCare DS/LEIDA Bariatric multivitamin with 60 mg Iron (1x per day) AND 6164-6180 mg calcium citrate daily taken in divided [...] Follow up: 6 months post op, scheduling [phone] documented in this encounter [facility] 11-02-2023 History of Presen t illness Narrative I have communicated my name and active licensure. The patient's identity and physical location were verified at the time of this visit. Either the patient or their legal delivery representative has been informed of the risks [...] Rate: 2344 Energy needs for weight loss 6556-5859 kcal/day (10-15 harpreet/kg current weight) Protein needs: 96-128 grams protein per day (1.2 g/kg IBW kg) Reviewed nutrition principles of: 1. Continue to take all recommended vitamin/minerals -ProCare DS/LEIDA Bariatric multivitamin with 60 mg Iron (1x per day) AND 9392-5172 mg calcium citrate daily taken in divided [...] Follow up: 6 months post op, scheduling [phone] Appointment Start Time: 9:45am Appointment End Time: 10:20am Time Spent on Consult: 35 minutes - Group Rupinder Colbert RD documented in this encounter [facility] 11-02-2023 Note HNO ID: [id number] Author: RUPINDER COLBERT RD Service: ? Author Type: Registered Dietitian Type: Progress Notes Filed: 11/02/2023 10:34 Note Text: I have communicated my name and active licensure. The patient's identity and physical location were verified at the time of this visit. Either the patient or their legal delivery representative has been informed of the risks [...] Rate: 2344 Energy needs for weight loss 7585-1325 kcal/day (10-15 harpreet/kg current weight) Protein needs: 96-128 grams protein per day (1.2 g/kg IBW kg) Reviewed nutrition principles of: 1. Continue to take all recommended vitamin/minerals -ProCare DS/LEIDA Bariatric multivitamin with 60 mg Iron (1x per day) AND 8639-5772 mg calcium citrate daily taken in divided [...] Follow up: 6 months post op, scheduling [phone] Appointment Start Time: 9:45am Appointment End Time: 10:20am Time Spent on Consult: 35 minutes - Group Rupinder Colbert RD [facility] 09-07-2023 Note HNO ID: [id number] Author: JAYSHREE HUFFMAN APRN.MEDICAL SCRIBE Service: ? Author Type: Nurse Practitioner Type: [...] loss: 6.128 kg (13 lb 8.2 oz) Hermann weight: 66.1 kg (145 lb 10.6 oz) [...] Orders FOLLOW UP: as scheduled Jayshree Huffman APRN.MEDICAL SCRIBE [facility] 09-07-2023 History of Presen t illness [...] loss: 6.128 kg (13 lb 8.2 oz) Hermann weight: 66.1 kg (145 lb 10.6 oz) [...] Jayshree Huffman APRN.CNP documented in this encounter [facility] 08-31-[address] - 08/31/2023 12:14 PM EST Reviewed nutrition principles of: 1. Continue to take all recommended vitamin/minerals - ProCare DS/LEIDA Bariatric multivitamin with 60 mg Iron (1x per day) AND 4899-5908 mg calcium citrate daily 2. Protein goal: [...] broccoli florets, Claudio lettuce, red-leaf lettuce or Lakota lettuce. Remember to chew vegetables thoroughly (chew 25 times) and swallow only when chewing has made it into a mushy pureed consistency. If you have trouble with gas, avoid eating gas-producing vegetables such as onions, cauliflower, garlic, scallions, leeks, [place] sprouts and cabbage. Avoid starchy vegetables such as potatoes (sweet and white), yams, yucca, plantain and corn at this time. Nutrition Monitoring & Evaluation: BMI < 60 Criteria: weight check and patient update Need for Follow up: 3 months post op, scheduling [phone] documented in this encounter [facility] 08-31-2023 Note HNO ID: [id number] Author: CHRISTOPHER SANTIAGO, PhD Service: ? Author Type: Psychologist Type: Progress Notes Filed: 08/31/2023 11:36 Note Text: [facility] Cost Center: [facility] Billing code: Gautam CPT Code: 20856 GROUP PSYCHOTHERAPY 63785 Brief Emotional/Behavioral Assessment with scoring/documentation (3 units) [...] a copy of the consent form on [employer]. The patient consented to a virtual visit and their location was confirmed. I have communicated my name and active licensure. The patient's identity and physical location were verified at the time of this visit. Either the patient or their legal delivery representative has been informed of the risks [...] Health (more content not included)... [facility] 08-31-2023 History of Presen t illness Narrative I have communicated my name and active licensure. The patient's identity and physical location were verified at the time of this visit. Either the patient or their legal delivery representative has been informed of the risks [...] Rate: 2308 Energy needs for weight loss 6993-8947 kcal/day (10-15 harpreet/kg current weight) Protein needs: 96-128 grams protein per day (1.2 g/kg IBW kg) Reviewed nutrition principles of: 1. Continue to take all recommended vitamin/minerals - ProCare DS/LEIDA Bariatric multivitamin with 60 mg Iron (1x per day) AND 8038-2666 mg calcium citrate daily 2. Protein goal: [...] broccoli florets, Claudio lettuce, red-leaf lettuce or [place] lettuce. Remember to chew vegetables thoroughly (chew 25 times) and swallow only when chewing has made it into a mushy pureed consistency. If you have trouble with gas, avoid eating gas-producing vegetables such as onions, cauliflower, garlic, scallions, leeks, [place] sprouts and cabbage. Avoid starchy vegetables such as potatoes (sweet and white), yams, yucca, plantain and corn at this time. Nutrition Monitoring & Evaluation: BMI < 60 Criteria: weight check and patient update Need for Follow up: 3 months post op, scheduling [phone] Appointment Start Time: 9:45am Appointment End Time: 10:35am Time Spent on Consult: 50 minutes - Group Rupinder Colbert RD documented in this encounter [facility] 08-31-2023 Note HNO ID: [id number] Author: RUPINDER COLBERT RD Service: ? Author Type: Registered Dietitian Type: Progress Notes Filed: 08/31/2023 12:14 Note Text: I have communicated my name and active licensure. The patient's identity and physical location were verified at the time of this visit. Either the patient or their legal delivery representative has been informed of the risks [...] Rate: 2308 Energy needs for weight loss 4526-6896 kcal/day (10-15 harpreet/kg current weight) Protein needs: 96-128 grams protein per day (1.2 g/kg IBW kg) Reviewed nutrition principles of: 1. Continue to take all recommended vitamin/minerals - ProCare DS/LEIDA Bariatric multivitamin with 60 mg Iron (1x per day) AND 0606-7529 mg calcium citrate daily 2. Protein goal: [...] recommended (more content not included)... [facility] 08-19-2023 Instructions Alex Monsivais, BRENDON - 08/19/2023 12:18 PM EST 1. Continue vitamins Research post-op vitamins for LEIDA/DS procedure: - Bariatric Fusion ADEK Complete Capsule (3x per day) AND 3129-9885 mg calcium citrate OR - Bariatric Advantage High ADEK Chewable Multivitamin (2x per day) AND 4323-5187 mg calcium citrate OR -Celebrate multi-ADEK chewable (3x per day) AND 4883-9819 mg calcium citrate AND 1 chewable Iron 45-60 mg AND OR -ProCare DS/LEIDA Bariatric multivitamin with 60 mg Iron (1x per day) AND 5755-5804 mg calcium citrate daily 2. Protein goal: [...] at 1 month) The [facility] has 2 virtual support group meetings: This is the [employer] link with meeting number that will be used for all of the THURSDAY virtual support groups this year, on the Thursday of each month 5:30-6:30PM Join from the meeting link [email or web address] Join by meeting number Meeting number (access code): [phone] Meeting password: [email or web address] The schedule with dates, times, topics, and facilitators can be found here: [email or web address] This is the [employer] link with meeting number that will be used for the Open Discussion ( Food for Thought ) support group on the Thursday of each month 5:30-6:30PM Join from the meeting link [email or web address] Join by meeting number Meeting number (access code): [phone] Meeting password: [email or web address] Hope to see you there! Nutrition Monitoring & Evaluation: Advance diet to phase 3 by next visit Criteria: patient recall Need for Follow up: 1 month post op documented in this encounter [facility] 08-19-2023 Note HNO ID: [id number] Author: ALEX MONSIVAIS RD Service: ? Author [...] visit. Either the patient or their legal delivery representative has been informed of the risks [...] yet taking recommended vitamin/minerals, however plans for Magix ADEK + 2000 mg calcium citrate. Exercise includes walking most days. Labs not available to evaluate. Reviewed nutrition principles of: 1. Continue vitamins Research post-op vitamins for LEIDA/DS procedure: - Bariatric Fusion ADEK Complete Capsule (3x per day) AND 1411-3225 mg calcium citrate OR - Bariatric Advantage High ADEK Chewable Multivitamin (2x per day) AND 1138-7741 mg calcium citrate OR -Celebrate multi-ADEK chewable (3x per day) AND 1429-0844 mg calcium citrate AND 1 chewable Iron 45-60 mg AND OR -ProCare DS/LEIDA Bariatric multivitamin with 60 mg Iron (1x per day) AND 8650-7353 mg calcium citrate daily 2. Protein goal: [...] at 1 month) The [facility] has 2 virtual support group meetings: This is the [employer] link with meeting number that will be used for all of the THURSDAY virtual support groups this year, on the Thursday of each month 5:30-6:30PM Join from the meeting link [email or web address] Join by meeting number Meeting number (access code): [phone] Meeting password: [email or web address] The schedule with dates, times, topics, and facilitators can be found here: [email or web address] This is the [employer] link with meeting number that will be used for the Open Discussion ( Food for Thought ) support group on the Thursday of each month 5:30-6:30PM Join from the meeting link [email or web address] Join by meeting number Meeting number (access code): [phone] Meeting password: [email or web address] Hope to see you there! Nutrition Monitoring AND Evaluation: Advance diet to phase 3 by next visit Criteria: patient recall Need for Follow up: 1 month (more content not included)... [facility] 08-19-2023 History of Presen t illness [...] visit. Either the patient or their legal delivery representative has been informed of the risks [...] yet taking recommended vitamin/minerals, however plans for Magix ADEK + 2000 mg calcium citrate. Exercise includes walking most days. Labs not available to evaluate. Reviewed nutrition principles of: 1. Continue vitamins Research post-op vitamins for LEIDA/DS procedure: - Bariatric Fusion ADEK Complete Capsule (3x per day) AND 6566-1571 mg calcium citrate OR - Bariatric Advantage High ADEK Chewable Multivitamin (2x per day) AND 2350-4785 mg calcium citrate OR -Celebrate multi-ADEK chewable (3x per day) AND 2777-6176 mg calcium citrate AND 1 chewable Iron 45-60 mg AND OR -ProCare DS/LEIDA Bariatric multivitamin with 60 mg Iron (1x per day) AND 9720-0164 mg calcium citrate daily 2. Protein goal: [...] at 1 month) The [facility] has 2 virtual support group meetings: This is the Trovix link with meeting number that will be used for all of the THURSDAY virtual support groups this year, on the Thursday of each month 5:30-6:30PM Join from the meeting link [email or web address] Join by meeting number Meeting number (access code): [phone] Meeting password: [email or web address] The schedule with dates, times, topics, and facilitators can be found here: [email or web address].org/d epartments/bariatric/patient-edu cation/after-surgery This is the Trovix link with meeting number that will be used for the Open Discussion ( Food for Thought ) support group on the Thursday of each month 5:30-6:30PM Join from the meeting link [email or web address] Join by meeting number Meeting number (access code): [phone] Meeting password: [email or web address] Hope to see you there! Nutrition Monitoring & Evaluation: Advance diet to phase 3 by next visit Criteria: patient recall Need for Follow up: 1 month post op Appointment Start Time: 11:45 AM Appointment End Time: 12:15 PM Time Spent on Consult: 30 minutes - Group Alex Monsivais RD documented in this encounter [facility] 08-17-2023 Note HNO ID: [id number] Author: JAYSHREE HUFFMAN APRN.MEDICAL SCRIBE Service: ? Author Type: Nurse Practitioner Type: Progress Notes Filed: 08/17/2023 10:41 Note Text: Assessment BMI Surgical PostOp Clinic Note August 17, 2023 INTERVAL HISTORY: Susi Naqvi Angel is here for 13 day post op [...] loss: 8.2 kg (18 lb 1.2 oz) Hermann weight: 66.1 kg (145 lb 10.6 oz) [...] Activity: (more content not included)... [facility] 08-17-2023 History of Presen t illness [...] loss: 8.2 kg (18 lb 1.2 oz) Hermann weight: 66.1 kg (145 lb 10.6 oz) [...] Jayshree Huffman APRN.KATTY documented in this encounter [facility] 08-13-2023 Miscellaneous Notes BMI SPECIALTY CARE COORDINATION [...] appt. Reminded patient of how to reach [facility] or their surgeons office. Patient reminded to seek medical attention if they develop chest pain, a sudden onset of shortness of breath or persistent pain in the calf of their legs - BEST TO ALWAYS present to [facility] hospital where you had your surgery Patient verbalized understanding of all advice and instructions given. Niki Peterson RN documented in this encounter [facility] 08-11-2023 Note HNO ID: [id number] Author: ?, ?, ? Service: ? Author Type: ? Type: Plan of Care Filed: 08/11/2023 17:07 Note Text: PHARMACY BEDSIDE DELIVERY SERVICE Patient Name: Susi Ortiz The marked outpatient medications were Filled at: [facility] and delivered to the patient's bedside to [facility] Medication List START taking these medications [...] mg tablet Commonly known as: ABBEY López (Rn Integrity) PAGER: [phone] August 11, 2023 5:05 PM [facility] 08-11-2023 Note HNO ID: [id number] Author: GLENIS NAZARIO MD Service: General Surgery Author Type: Resident Type: Progress Notes Filed: 08/11/2023 07:06 Note Text: General Surgery Progress Note Name: Susi Ortiz Bed: FV-PK3C28/-[id number] ASSESSMENT AND PLAN Susi Ortiz is a [...] Nazario MD General Surgery, Resident Please contact [facility] Team pager for any questions [phone] during the daytime hours from 6a to 6p. Contact [phone] for nights and weekends Subjective -No acute [...] MG 2.0 1.8 1.8 Imaging None today [facility] 08-10-2023 Note HNO ID: [id number] Author: GLENIS NAZARIO MD Service: General Surgery Author Type: Resident Type: Progress Notes Filed: 08/10/2023 08:01 Note Text: General Surgery Progress Note Name: Susi Ortiz Bed: FV-PK3C28/FV-FD8K-10 ASSESSMENT AND PLAN Susi Ortiz is a [...] Nazario MD General Surgery, Resident Please contact [facility] Team pager for any questions [phone] during the daytime hours from 6a to 6p. Contact [phone] for nights and weekends Subjective -No acute [...] 97 MG 1.8 1.8 Imaging None today [facility] 08-09-2023 Note HNO ID: [id number] Author: ANGELA COPELAND MD Service: General Surgery Author Type: Physician Type: Progress Notes Filed: 08/09/2023 09:41 Note Text: General Surgery Progress Note Name: Susi Ortiz Bed: FV-PK3C28/FV-EU8A-48 Date: August 08, 2023 ASSESSMENT AND PLAN [...] staff Patrica Anaya MD General Surgery, Resident [phone] Please contact [facility] Team pager for any questions [phone] during the daytime hours from 6a to 6p. Contact [phone] for nights and weekends Subjective -No acute [...] dry, intact Recent Labs 08/09/23 0431 08/08/23 04308/07/23 043 WBC 14.45* 15.03* 16.39* HB [...] incision. Tolerating some fluids. Philly Copeland MD [facility] 08-09-2023 Note HNO ID: [id number] Author: MAYANK VELARDE RN Service: ? Author Type: Registered Nurse Type: Nursing Progress Note Filed: 08/09/2023 06:08 Note Text: 0608: page SROC pt potassium came back 3.5 this morning. [facility] 08-08-2023 Note HNO ID: [id number] Author: ANGELA COPELAND MD Service: General Surgery Author Type: Physician Type: Progress Notes Filed: 08/08/2023 09:33 Note Text: General Surgery Progress Note Name: Susi Ortiz [facility]77 Date: August 08, 2023 ASSESSMENT AND PLAN [...] No gas yet today. Philly Copeland MD [facility] 08-07-2023 Note HNO ID: [id number] Author: MAICO MCCLAIN MD Service: General Surgery Author Type: Resident Type: Progress Notes Filed: 08/07/2023 09:26 Note Text: General Surgery Progress Note Name: Susi Ortiz Bed: -PK3C28/FV-QC7G-55 Date: August 07, 2023 ASSESSMENT AND PLAN [...] this interval not displayed. Imaging None today [facility] 08-06-2023 Note HNO ID: [id number] Author: MAICO MCCLAIN MD Service: General Surgery Author Type: Resident Type: Progress Notes Filed: 08/06/2023 15:58 Note Text: General Surgery Progress Note Name: Susi Ortiz Bed: [facility]/-ZZ7Z-88 Date: August 06, 2023 ASSESSMENT AND PLAN [...] 2.0 -- -- 1.8 Imaging None today [facility] 08-06-2023 Note HNO ID: [id number] Author: JOE GRANDA MD Service: General Surgery [...] of VTE prophylactic dosing Joe Granda MD [facility] 08-05-2023 Note HNO ID: [id number] Author: JOE GRANDA MD Service: General Surgery Author Type: Physician Type: Progress Notes Filed: 08/05/2023 15:58 Note Text: General Surgery Progress Note Name: Susi Ortiz Bed: [facility]/-JN1M-36 Date: August 05, 2023 ASSESSMENT AND PLAN [...] Doing well POD 1. Joe Granda MD [facility] 08-05-2023 Note HNO ID: [id number] Author: ALMA CONNORS LSW Service: Care Management Author Type: Hired Worker Type: Care Mgt Initial Assessment Filed: 08/05/2023 12:20 Note Text: CARE MANAGEMENT: ASSESSMENT AND DISCHARGE PLAN SERVICE DATE: August 05, 2023 SERVICE TIME: 12:17 PM PCP: Elizabet Simental DO, DO Primary Contact: Extended Emergency Contact Information Primary Emergency Contact: Evita Eckert [facility] Mobile Relation: Grandparent Secondary Emergency Contact: Ritchie Stephens [facility] Mobile Relation: Mother Admission Status: Inpatient Insurance Provider: TERRY BCBS [place] OF [place] Discharge Planning requested by: Per Department Practice Potential Transition Plans No Services Indicated Advance Directives Current Advance Directive: None Alloy Weigher Attempted to Assist with AD Completion: Yes [...] General wellness, Be able to go home Lipscomb of Choice Explained: Lipscomb of Choice Given: No Reason Not Given: [...] unemployed, drives. Does not utilize any DME, chcf or community resources. No skilled needs identified at this time. DC transportation will be provided by family. SIGNATURE: LELAND Kumar PATIENT NAME: Susi Ortiz DATE: August 05, 2023 TIME: 12:17 PM CONTACT #: [phone] [facility] 08-05-2023 Note HNO ID: [id number] Author: RADHA LARSON MD Service: General Surgery [...] q8h - Continue NPO Radha Larson MD [facility] Pager [phone] Subjective: pain well controlled on current regimen, [...] ALLERGIES Allergen Reacti (more content not included)... [facility] 08-04-2023 Note HNO ID: [id number] Author: MARIIA AGUERO APRN.LEATHER BELT MAKER Service: ? Author Type: Nurse Satellite Tv Technician Installer Type: Anesthesia Procedure Notes Filed: 08/04/2023 14:30 Note Text: ANESTHESIOLOGY PROCEDURE NOTE Gastric Tube General Information Procedure Start Time/Medication Administration: 08/04/2023 1:15 PM Patient location during procedure: OR Indication: gastric decompression Staffing Anesthesiologist: Amanda Alcantar DO LEATHER BELT MAKER: Mariia Aguero APRN.LEATHER BELT MAKER Performed by: CHEKO Procedure Details Type: Nasogastric tube Cortrak monitor used: No Size: 18 Fr cm Distance Advanced: 55 cm Securement: taped to the nose Placement Confirmation: KUB ordered/pending Successful Placement: yes Post-Procedure Details SIGNATURE: Mariia Aguero APRN.CRNA PATIENT NAME: Susi Naqvi Ortiz DATE: August 04, 2023 TIME: 2:23 PM CSN: [id number] [facility] 08-04-2023 Note HNO ID: [id number] Author: JUDE LOPEZ DO Service: Anesthesiology Author Type: Anesthesiologist Type: Anesthesia Procedure Notes Filed: 08/04/2023 12:19 Note Text: ANESTHESIOLOGY PROCEDURE NOTE Epidural Block General Information Procedure Start Time/Medication Administration: 08/04/2023 7:27 AM Patient location during procedure: pre-op Informed Consent Consent Obtained: Written Skippers Protocol A moment to CARE was completed. [...] 3 Needle and Epidural Catheter Needle type: CreativeWorx Needle gauge: 17G Needle length: 6 in [...] August 04, 2023 TIME: 12:10 PM CSN: [id number] [facility] 08-04-2023 Note HNO ID: [id number] Author: MARIIA AGUERO APRN.LEATHER BELT MAKER Service: ? Author Type: Nurse Satellite Tv Technician Installer Type: Anesthesia Procedure Notes Filed: 08/04/2023 10:01 Note Text: ANESTHESIOLOGY PROCEDURE NOTE Airway General Information Procedure Start Time/Medication Administration: 08/04/2023 8:47 AM Patient location during procedure: OR Patient identity confirmed: arm band and patient Staffing Anesthesiologist: Amanda Alcantar DO LEATHER BELT MAKER: Mariia Aguero APRN.LEATHER BELT MAKER Performed by: other anesthesia staff Indications and Patient Condition Indications for airway management: anesthesia Preoxygenated: yes anesthesia circuit Patient position: sniffing Method: modified rapid sequence Difficult Mask: No Airway Accessory: oral airway Final Airway Details Final airway type: endotracheal airway Final Endotracheal Airway: ETT Cuffed: yes Successful intubation technique: video laryngoscopy Devices used: Gigalo Endotracheal tube insertion site: oral Blade size: #4 ETT size (mm): 7.5 Measured from: lips Measurement (cm): 22 Placement verified by: capnometry Cormack-Lehane Classification: grade I - full view of glottis Number of attempts at approach: 1 Airway not difficult Comments Atraumatic intubation. Dentition and lips remain the same as preop. Critical care HAND PROFILER performed intubation. SIGNATURE: Mariia Aguero APRN.CRNA PATIENT NAME: Susi Naqvi Ortiz DATE: August 04, 2023 TIME: 9:58 AM CSN: [id number] [facility] 08-04-2023 Note HNO ID: [id number] Author: AMANDA ALCANTAR DO Service: Anesthesiology Author Type: Physician Type: Anesthesia Procedure Notes Filed: 08/04/2023 09:33 Note Text: ANESTHESIOLOGY PROCEDURE NOTE A-Line General Information Procedure Start Time/Medication Administration: 08/04/2023 9:02 AM Patient location during procedure: OR Consent Obtained: Yes Indications: continuous blood pressure monitoring Staffing Anesthesiologist: Amanda Alcantar DO LEATHER BELT MAKER: Mariia Aguero APRN.LEATHER BELT MAKER Performed by: anesthesiologist Preparation Sterility Preparation: hand [...] August 04, 2023 TIME: 9:32 AM CSN: [id number] [facility] 08-04-2023 Note HNO ID: [id number] Author: AMANDA ALCANTAR DO Service: Anesthesiology Author Type: Physician Type: Anesthesia Procedure Notes Filed: 08/04/2023 09:32 Note Text: ANESTHESIOLOGY PROCEDURE NOTE PIV General Information Procedure Start Time/Medication Administration: 08/04/2023 9:20 AM Patient Location: OR Staffing Anesthesiologist: Amanda Alcantar DO LEATHER BELT MAKER: Mariia Aguero APRN.LEATHER BELT MAKER Other anesthesia staff/rotator: Cari Elizondo APRN.LEATHER BELT MAKER Performed by: anesthesiologist Preparation Sterility Preparation: hand hygiene performed prior to procedure Site Prep: Betadine and chlorhexidine Procedure Details Indication: need for IV access Needle Size/Type: 14 gauge angiocath Orientation: Left Location: Antecubital Imaging Guidance Used: Yes Image in Chart: Yes SIGNATURE: Amanda Alcantar DO PATIENT NAME: Susi Naqvi Ortiz DATE: August 04, 2023 TIME: 9:30 AM CSN: [id number] [facility] 08-03-2023 Miscellaneous Notes BMI SPECIALTY CARE COORDINATION SURGERY PRE-OP EDUCATION NOTE Phoned patient to reinforce prior pre-op instruction and answer any questions she might have. No answer. Left brief vmm including contact info for this RN and requested call back. documented in this encounter [facility] 07-21-2023 Note HNO ID: [id number] Author: EARL MCGEE RD Service: ? Author [...] visit. Either the patient or their legal delivery representative has been informed of the risks [...] Advanced Nutrition OR 5.5 packets/day Light Start Mcalister Breakfast Essentials mixed with 1% or skim [...] from poultry, beef, fish, seafood, eggs, cheese, Panamanian yogurt, cottage cheese, beans, lentils, tofu. Choose meat products that are tender, shredded and/or ground to increase tolerance. Remember to chew food well, eat slow, take small bites CHANGES IN TREATMENT: Patient met goal(s): Yes Diagnosis: has not changed. Allergies: Adhes. Slhr-Krxg-Zvhvpovpszhn, Adhesive Tape-Silicones, Augmentin [Amoxicillin-Pot Clavulanate], Keflex [Cephalexin], [...] weight (more content not included)... [facility] 07-20-2023 Note HNO ID: [id number] Author: JOE GRANDA MD Service: ? Author Type: Physician Type: Progress Notes Filed: 07/20/2023 14:06 Note Text: SURGERY PREOPERATIVE VISIT NOTE Name: Susi Ortiz Medical Record: [id number] Encounter No.: [id number] Susi Ortiz is a 38 year old [...] use: Never ALLERGIES: ALLERGIES Allergen Reactions Adhes. Kxnl-Ezou-Zs* Rash Adhesive Tape-Silic* Rash Augmentin [Amoxicil* Diarrhea [...] regarding unsatisfactory weight loss as well as mcc weight regain. I have also discussed medical [...] christian (more content not included)... [facility] 06-11-2023 Note HNO ID: [id number] Author: Heidy Dsouza RN Service: ? Author Type: ? Type: Progress Notes Filed: 06/11/2023 5:30 PM Note Text: Received approval for open LEIDA. Scheduled on 08/04/[address] Granda at . [facility] 04-30-2023 Note HNO ID: [id number] Author: Shaunna Persaud, PhD Service: ? Author Type: Psychologist Type: Progress Notes Filed: 04/30/2023 9:45 AM Note Text: [facility] Progress Note 04/30/2023 Billing code: Robert Patient did not attend, cancel, or reschedule this appointment. Shaunna Persaud, Ph.D. Clinical Health Psychologist [facility] 04-27-2023 Miscellaneous Notes This patient underwent [...] Joe Granda MD documented in this encounter [facility] 04-13-2023 Note HNO ID: [id number] Author: Rupinder Colbert RD Service: ? Author Type: Registered Dietitian Type: Progress Notes Filed: 04/13/2023 5:48 PM Note Text: Patient presented for virtual visit, however she has not yet had bariatric surgery and does not need 2 week post op visit at this time. Will be rescheduled 2 weeks before surgery once scheduled. Rupinder Colbert RD, LD [facility] 04-13-2023 History of Presen t illness Narrative Patient presented for virtual visit, however she has not yet had bariatric surgery and does not need 2 week post op visit at this time. Will be rescheduled 2 weeks before surgery once scheduled. Rupinder Colbert RD, LD documented in this encounter [facility] 04-11-2023 Note HNO ID: [id number] Author: Note, Interface Service: ? Author Type: ? Type: Progress Notes Filed: 04/11/2023 3:29 AM Note Text: Epic Scheduled Downtime: 04/11/2023 1:00:00 AM to 04/11/2023 1:28:00 AM [facility] 04-01-2023 Note HNO ID: [id number] Author: Mary Hughes MD Service: General Surgery [...] Resident For team paging 6AM-6PM during weekdays: [phone] for [facility] Team For team paging after 6PM or on weekend / holidays: [phone] for General Surgery Subjective: - No acute [...] 1006 APTT 30.3 INR 0.9 Cardiac Enzymes [facility] 03-31-2023 Note HNO ID: [id number] Author: Heber Riddle SRNA Service: ? Author Type: Student Type: Anesthesia Procedure Notes Filed: 03/31/2023 11:20 AM Note Text: ANESTHESIOLOGY PROCEDURE NOTE Airway General Information Procedure Start Time/Medication Administration: 03/31/2023 10:35 AM Patient location during procedure: OR Timeout Performed Pre-procedure: timeout performed Consent Obtained: Yes Patient identity confirmed: arm band and patient Staffing Anesthesiologist: Darrel Conklin MD LEATHER BELT MAKER: Sheridan Claire APRN.LEATHER BELT MAKER SRNA: Heber Riddle SRNA Performed by: LILIANA [...] March 31, 2023 TIME: 11:18 AM CSN: [id number] [facility] 03-10-2023 Instructions Shruti Alvarado APRN.MEDICAL SCRIBE - 03/10/2023 2:02 PM EDT PATIENT PREOPERATIVE INSTRUCTIONS Joe Granda MD has scheduled you for your procedure at this surgery center: [facility]: [phone] --[id number] [address]. Please check in on the 1st floor [...] Procedures: - YOU MUST HAVE A RESPONSIBLE HUMAN RESOURCES PROFESSIONAL TAKE YOU HOME. A DURABILITY TECHNICIAN OR LANDSCAPE PAINTER CANNOT BE MADE A RESPONSIBLE HUMAN RESOURCES PROFESSIONAL. - We recommend that a responsible person [...] Advance Directive, please fax a copy to [phone] or email to for it to be [...] Shruti Alvarado APRN.KATTY documented in this encounter [facility] 03-10-2023 History and physical note HISTORY AND [...] medication comments found. ALLERGIES Allergen Reactions Adhes. Qpac-Ylza-Xn* Rash Adhesive Tape-Silic* Rash Augmentin [Amoxicil* Diarrhea Keflex [Cephalexin] Rash, Itching Penicillins Hives Ultram [Tramadol Hc* Itching COVID VACCINATION STATUS: Fully vaccinated REVIEW OF SYSTEMS: PAIN ASSESSMENT: General: No weight loss, malaise or fevers. Neuro: No history of TIA's, stroke, WARHEAD MAINTENANCE SPECIALIST tumor, impaired sensorium, hemiplegia, paraplegia or quadraplegia. No neurological symptoms or problems. Positive for Migraines on Inderal Respiratory: Positive for TONEY non compliant with CPAP , Negative for No history of current cough or dyspnea, or pneumonia in the past 6 weeks. No history of respiratory/pulmonary symptoms or problems Cardiovascular: No history of HTN requiring medication, no history of angina, CHF, MT, cardiac surgery or stents. Denies rest pain, gangrene or revascularization/amputation for PVD. No history of cardiovascular symptoms or problems. GI: See HPI : No history of dysuria, frequency or incontinence,, stones or chronic kidney disease, No difficulty urinating, nocturia > 1 time per night or hematuria CIVILIAN TECHNICIAN: Negative for abnormal vaginal bleeding, abnormal vaginal [...] normal intervals, reviewed by myself., reviewed by brush holder inspector. All in [facility] Assessment/Plan TONEY on CPAP Assessment: non compliant with CPAP Gastroesophageal reflux disease Assessment: stable on PPI Bipolar affective disorder ([facility]) Assessment: stable on medication Denies any suicidal ideations Morbid obesity with body mass index of 60.0-69.9 in adult ([facility]) Assessment: Body mass index is 68.66 kg/m . Thrombocytosis ([facility]) Assessment: s/p splenectomy in 2014, Elevated Platelet [...] TIME: 1:33 PM documented in this encounter [facility] 03-05-2023 Instructions Mireille Dao, BRENDON - 03/05/2023 1:53 PM EDT Instructions for Liquid Diet before surgery Start the full liquid diet 3 weeks before surgery - Use only the approved protein shakes: 4.5 bottles/day Slim Fast Advanced Nutrition OR 5.5 packets/day Light Start Mcalister Breakfast Essentials mixed with 1% or skim [...] from poultry, beef, fish, seafood, eggs, cheese, Panamanian yogurt, cottage cheese, beans, lentils, tofu. Choose meat products that are tender, shredded and/or ground to increase tolerance. Remember to chew food well, eat slow, take small bites documented in this encounter [facility] 03-05-2023 Note HNO ID: [id number] Author: Mireille Dao RD Service: ? Author Type: Registered Dietitian Type: Progress Notes Filed: 03/05/2023 1:53 PM Note Text: I have communicated my name and active licensure. The patient's identity and physical location were verified at the time of this visit. Either the patient or their legal delivery representative has been informed of the risks [...] Advanced Nutrition OR 5.5 packets/day Light Start Mcalister Breakfast Essentials mixed with 1% or skim [...] from poultry, beef, fish, seafood, eggs, cheese, Panamanian yogurt, cottage cheese, beans, lentils, tofu. Choose meat products that are tender, shredded and/or ground to increase tolerance. Remember to chew food well, eat slow, take small bites CHANGES IN TREATMENT: Patient met goal(s): Partially Diagnosis: has not changed. Allergies: Adhes. Zfwy-Jenx-Jpahxfgkrtce, Adhesive Tape-Silicones, Augmentin [Amoxicillin-Pot Clavulanate], Keflex [Cephalexin], [...] carbonat (more content not included)... [facility] 03-05-2023 History of Presen t illness Narrative I have communicated my name and active licensure. The patient's identity and physical location were verified at the time of this visit. Either the patient or their legal delivery representative has been informed of the risks [...] Advanced Nutrition OR 5.5 packets/day Light Start Mcalister Breakfast Essentials mixed with 1% or skim [...] from poultry, beef, fish, seafood, eggs, cheese, Panamanian yogurt, cottage cheese, beans, lentils, tofu. Choose meat products that are tender, shredded and/or ground to increase tolerance. Remember to chew food well, eat slow, take small bites CHANGES IN TREATMENT: Patient met goal(s): Partially Diagnosis: has not changed. Allergies: Adhes. Guri-Dgcb-Ltccvzqkgdks, Adhesive Tape-Silicones, Augmentin [Amoxicillin-Pot Clavulanate], Keflex [Cephalexin], [...] mg per day Calcium Citrate https://www.bariatricfusion.com/ collections/adek/products/bariat hzl-nmjgcetpvobw-awka-adek-vitam ve-uyam-chxc OR - 2 per day Bariatric Advantage High ADEK Multivitamin Capsules AND 9895-8247 mg per day Calcium Citrate AND 45-60 mg per day Iron https://www.bariatricadvantage.c om/wuny-qnqm-gajouaabgbzr-capsul es OR - 2 per day Celebrate Multi-ADEK with Iron Chewable Tablets AND 4147-5320 mg per day Calcium Citrate https://Elemental FoundryteBizzingos.Customer BOOM (formerly [employer] BOOM)/pr oducts/jiriq-ftxi-voib-iron?vari pve=[id number] OR -1 per day ProCare DS/LEIDA Bariatric Multivitamin with 60 mg Iron AND 8143-4945 mg per day Calcium Citrate https://Careerise/procare-h foddx-ecqk-ecelo-bariatric-multi vaogewk-oeegkka-ka-leida/?sku=Vit -NrfoAqfcKJ-EZIL-51gy S-LEIDA-30ct Nutrition Monitoring & Evaluation: Follow pre op diet and fluid guidelines Criteria: weight check Need for Follow up: 2 weeks post op Appointment Start Time: 1:00 pm Appointment End Time: 1:21 pm Time Spent on Consult: 21 minutes - Group SIGNATURE: Mireille Dao RD PATIENT NAME: Susi Borjahip DATE: 03/05/2023 TIME: 12:55 PM PAGER: documented in this encounter [facility] 02-26-2023 Note HNO ID: [id number] Author: Pao Hodgson RN Service: ? Author Type: Registered Nurse Type: Progress Notes Filed: 02/26/2023 2:35 PM Note Text: Surgery date rescheduled to 03/31/2023. Pao Hodgson RN [facility] 01-15-2023 Note HNO ID: [id number] Author: Joe Granda MD Service: ? Author Type: Physician Type: Progress Notes Filed: 01/15/2023 11:40 AM Note Text: VIRTUAL VISIT PROGRESS NOTE This is a virtual visit using Zample video visit. It required patient-provider interaction for the medical decision making as documented below. I have communicated my name and active licensure. The patient's identity and physical location were verified at the time of this visit. Either the patient or their legal delivery representative has been informed of the risks and benefits of -- and alternatives to -- treatment through a remote evaluation and consents to proceed with the evaluation remotely. PREOPERATIVE VISIT NOTE Name: Susi Ortiz Medical Record: [id number] Encounter No.: [id number] Susi Ortiz is a 37 year old [...] for this visit. ALLERGIES Allergen Reactions Adhes. Bdjt-Iutq-Bj* Rash Adhesive Tape-Silic* Rash Augmentin [Amoxicil* Diarrhea [...] stric (more content not included)... [facility] 01-05-2023 Note HNO ID: [id number] Author: Pao Hodgson RN Service: ? Author Type: Registered Nurse Type: Progress Notes Filed: 01/30/2023 10:27 AM Note Text: Surgery date rescheduled to 03/17/2023. Pao Hodgson RN [facility] 01-05-2023 Miscellaneous Notes [facility] COORD[facility] SURGERY APPROVAL CALL Received e-mail confirmation of insurance approval for bariatric surgery.Pre-operative call placed to the patient, this RN spoke with patient and agreed upon a surgery date of February 03 2023. Surgical episode request sent to [facility] surgery scheduling. 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 Creatinine level 0.81 Patient instructed to start pre-op 800 calorie total protein liquid diet daily beginning 2 weeks prior to surgery. - Stop all ASA and NSAID products, Cudahy 3 fish oil, herbal products such as [...] Pt instructed to fax FMLA forms to [phone] and allow 7-10 days for completion. - Deandra video assigned. - All questions and concerns addressed and patient verbalized understanding. - Patient case reviewed. All nutrition appointments completed, psychology clearance obtained, surgeon visit and procedure type verified, medical optimization obtained and all testing complete. 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 Yes, patient has Con ABO. Pao Hodgson RN documented in this encounter [facility] 12-15-2022 Instructions Mireille Dao, RD - 12/15/2022 [...] mg per day Calcium Citrate https://www.bariatricfusion.com/ collections/adek/products/bariat bky-yecszwnwlfdn-nzic-adek-vitam wa-urqr-jcun OR - 2 per day Bariatric Advantage High ADEK Multivitamin Capsules AND 0449-8646 mg per day Calcium Citrate AND 45-60 mg per day Iron https://www.bariatricadvantage.c om/asgs-rtws-odcrwuoiwnah-capsul es OR - 2 per day Celebrate Multi-ADEK with Iron Chewable Tablets AND 9571-5308 mg per day Calcium Citrate https://celebratevitamins.com/pr oducts/mvzqj-swxw-dhol-iron?vari rrh=[id number] OR -1 per day ProCare DS/LEIDA Bariatric Multivitamin with 60 mg Iron AND 9603-6383 mg per day Calcium Citrate https://Careerise/procare-h qoplk-rrcf-yefdp-bariatric-multi miulfvw-jdylpfm-sy-leida/?sku=Vit -MafzZqihSP-NROD-01ja S-LEIDA-30ct documented in this encounter [facility] 12-15-2022 Note HNO ID: [id number] Author: Mireille Dao RD Service: ? Author Type: Registered Dietitian Type: Progress Notes Filed: 12/15/2022 3:32 PM Note Text: [facility] Nutrition Therapy: Virtual Consult - Re-assessment I have communicated my name and active licensure. The patient's identity and physical location were verified at the time of this visit. Either the patient or their legal delivery representative has been informed of the risks [...] per day Calcium Citrate https://www.bariatricfusion.com/ collections/adek/products/bariat libby-multivi ztnmh-hmvx-tgfy-vwfzpge-quuw-sts n OR - 2 per day Bariatric Advantage High ADEK Multivitamin Capsules AND 3252-3969 mg per day Calcium Citrate AND 45-60 mg per day Iron https://www.bariatricadvantage.c om/gaep-heos-ghziiuulqkvt-capsul es OR - 2 per day Celebrate Multi-ADEK with Iron Chewable Tablets AND 4039-2724 mg per day Calcium Citrate https://SmartCrowdzs.Customer BOOM (formerly Renter's BOOM)/pr oducts/cavro-aisg-kfpe-iron?vari xep=[id number] OR -1 per day ProCare DS/LEIDA Bariatric Multivitamin with 60 mg Iron AND 2792-3491 mg per day Calcium Citrate https://Careerise/procare-h mjyil-nwik-hdfnz-bariatric-multi vitamin-cap owwq-bp-paer/?sku=Vit-BariCapsDS -LEIDA-30ct S-LEIDA-30ct Nutrition Monitoring AND Evaluation: Weight [...] ADEK Complete Capsule (3x per day) AND 1521-1883 mg calcium citrate https://www.bariatricfusion.com/ collections/adek/products/bariat libby-multivi bhqun-ikvf-aphf-svdxbkt-avsu-gzb n OR - Bariatric Advantage High ADEK Chewable Multivitamin (2x per day) AND 3532-1706 mg calcium citrate https://www.bariatricadvantage.c om/rnyr-pxwi-bgndivatkcui-capsul es OR -Celebrate multi-ADEK chewable (3x per day) AND 1205-0415 mg calcium citrate AND 1 chewable Iron 45-60 mg https://celebratevitamins.com/pr oducts/multi-adek?kufexgh=225541 4262695 OR -ProCare DS/LEIDA Bariatric multivitamin with 60 mg Iron (1x per day) AND 2968-6209 mg calcium citrate daily https://procaren (more content not included)... [facility] 12-15-2022 History of Presen t illness Narrative [facility] Nutrition Therapy: Virtual Consult - Re-assessment I have communicated my name and active licensure. The patient's identity and physical location were verified at the time of this visit. Either the patient or their legal delivery representative has been informed of the risks [...] mg per day Calcium Citrate https://www.bariatricfusion.com/ collections/adek/products/bariat ocy-hpgchuujdtso-nrua-adek-vitam lx-jbfz-rwmd OR - 2 per day Bariatric Advantage High ADEK Multivitamin Capsules AND 4842-6833 mg per day Calcium Citrate AND 45-60 mg per day Iron https://www.bariatricadvantage.c om/inhm-gtwq-ssdglaqzfqaq-capsul es OR - 2 per day Celebrate Multi-ADEK with Iron Chewable Tablets AND 9112-4823 mg per day Calcium Citrate https://Simple Star.Customer BOOM (formerly Renter's BOOM)/pr oducts/hbmsm-zlcg-vkby-iron?vari jwl=[id number] OR -1 per day ProCare DS/LEIDA Bariatric Multivitamin with 60 mg Iron AND 5695-0917 mg per day Calcium Citrate https://Careerise/procare-h azscz-etel-ikcbo-bariatric-multi fcnzzgj-olgthkv-dc-leida/?sku=Vit -YoxzQpkyXS-QGRL-51hh S-LEIDA-30ct Nutrition Monitoring & Evaluation: Weight loss [...] ADEK Complete Capsule (3x per day) AND 3269-5916 mg calcium citrate https://www.bariatricfusion.com/ collections/adek/products/bariat rtm-nvvvhedjrvwv-byaw-adek-vitam xi-zdmy-jnla OR - Bariatric Advantage High ADEK Chewable Multivitamin (2x per day) AND 7322-0838 mg calcium citrate https://www.bariatricadvantage.c om/vdze-tduv-mpcfnoioiyhw-capsul es OR -Celebrate multi-ADEK chewable (3x per day) AND 6318-3036 mg calcium citrate AND 1 chewable Iron 45-60 mg https://celebratevitamins.com/pr oducts/multi-adek?yfejxbi=596110 5565932 OR -ProCare DS/LEIDA Bariatric multivitamin with 60 mg Iron (1x per day) AND 6250-9519 mg calcium citrate daily https://Careerise/procare-h mvong-dipy-ywtyv-bariatric-multi taiajnf-tpaygjr-tw-leida/?sku=Vit -FmwzNtfeBS-INGG-37wd 2. Protein goal: 77 grams protein/day. Protein [...] Advanced Nutrition OR 5.5 packets/day Light Start Mcalister Breakfast Essentials mixed with 1% or skim [...] 3:08 PM PAGER: documented in this encounter [facility] 12-13-2022 Evaluation note Encounter Date Diagnosis Assessment [...] that time. Patient verbalized understanding treatment plan. [facility] Other 06-07-2023 History of Present illness Narrative* [...] selecting actual surgery date. Heidy Dsouza RN Medical Associate for Cony Soler MD Covering for Joe Granda MD [facility]-2023 NoteEXAMINATION: XR CHEST 2 V HISTORY: Abnormal [...] Electronically authenticated by: DARREL NICHOLS Date: 2022-08-12 15:04[facility]12-07-2022 Instructions* Patient Instructions* Amina Nieto MD - 06/04/2022 6:53 PM EST INSTRUCTIONS: 1) Please contact me (Dr. Nieto) if you have not heard about your test results within a few days after you had them done. Thank you: Contact information: [facility] [place] [facility]/Attention: Dr. Nieto [address] [place] [address] 2) Please check with your insurance company regarding cost/coverage of any tests ordered prior to having them completed. Edinson Ortiz , Thank you for completing your visit today and we welcome you to the surgical program. We are sure that you will still have some additional questions and encourage you to reach out to your care provider via Moto Europat OR your Patient Navigator. Patient Navigators are assigned alphabetically by patient last name. The contact information for each Navigator is listed below. Last names A-E= Kody Last names F-L = Joanna- Last names M-R= Alma- Last names S-Z= Jesusita- [email or web address] Additionally, you may find many of the [...] free to ask for a hard copy. [email or web address] Once you complete all of the requirements (testing, consultations, diet, etc) from each provider, please call [phone] and select option #5 to initiate insurance approval. Please note scheduling information It is important to keep track of your scheduled appointments to ensure successful completion of oursurgical program. Any missed appointments can further delay your pre-surgical work-up. [facility] does offer an opt-in option for getting text message appointment reminders. Please follow the link below if you would like to opt into this service. [email or web address] As part of your surgical work up, [...] these tests. You may call your local [facility] to get an appointment. - Lab work- No appointment is needed for this, you may complete at any [facility] Laboratory.These are usually fasting labs, please be sure to fast (only water permitted) for 10-12 hours priorto the test. -Sleep Study- Please call [phone] or [phone] to get this appointment set up. -Sleep Medicine Consult- (Only needed if sleep study confirms sleep apnea) Please call [phone] to schedule an appointment. Any testing that is completed outside of [facility] will need faxed to [phone]. 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) -tobacco use: non-smoker -ETOH: doesn't drink ALL: SE[facility] LABS: IMAGING: PROC: CARDIAC: MEDS: See [facility] PMH: -bipolar/depression/anxiety-on Abilify, Buspar, on Lamictal, Mini-press, [...] bilateral S PROBE PERC LUMBAR DISCECTOMY 2011; 2013 L4, L5 and L5 S1 SPLENECTOMY TOTAL [...] cardiac, valvular or vascular issues *no h/o MT, CHF, CAD, no cp/palpitations Respiratory: Denies any [...] -she had labs done at her local facility-[facility]; check remaining presurgical labs, CXR, EKG (had recent CT abd); will try to get the labs from [place]; Will mail her orders so she can get them done locally and try to obtain recent labs from [facility] 2)Sleep disordered breathing: external sleep study scanned in [facility]-+TONEY -check sleep study and refer to Sleep medicine-she will try to have these done locally. Amina Nieto MD I spent a total of 45 minutes on the date of the service which included preparing to see the patient, tmpx-ak-hgjp patient care, completing clinical documentation, obtaining and/or reviewing separately obtained history, counseling and educating the patient/family/caregiver, ordering medications, keli ts, or procedures, and care coordination (not separately reported). 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 Pao Hodgson RN * Telephone Encounter - Jessica Rodriguez - 05/01/2022 1:55 PM EDT Pt has questions regarding upcoming surgery PH: [phone] documented in this encounterPremier Health11-04-2022 Miscellaneous Notes* Telephone Encounter - Pao Hodgson [...] 9:20 AM EDT AMBULATORY TELEPHONE VISIT Susi Ortiz has consented to this telephone encounter. Persons [...] switch. Joe Granda MD documented in this encounterPremier Health10-21-2022 Miscellaneous Notes* Telephone Encounter - Pao Hodgson RN - 04/18/2022 1:34 PM EDT [facility] CO[facility] SURGERY SCHEDULING CALL Received e-mail confirmation of insurance approval for bariatric surgery.Pre- operative call placed to the patient, this RN spoke with patient and agreed upon a surgery date of June 10 2022. Surgical episode request sent to [facility] surgery scheduling. Patient understands that the surgery type is partial gastrectomy with gastrojejunostomy . Creatinine level pending results Patient instructed to start pre-op 800 calorie total protein liquid diet daily beginning 2 weeks prior to surgery provided creatinine is in range. - Stop all ASA and NSAID products, Cudahy 3 fish oil, herbal products such as [...] Pt instructed to fax FMLA forms to [phone] and allow 7-10 days for completion. Deandra [...] ordered Pao Hodgson RN documented in this encounterPremier Health10-19-2022 History of Present illness Narrative* Joe Granda [...] which included preparing to see the patient, ddxc-hu-splk patient care, and completing clinical documentation, test ordering, care coordination. Joe Granda MD documented in this encounterPremier Health10-19-2022 Evaluation note* Encounter Date Diagnosis Assessment Notes [...] Mar, Right foot pain (ICD-10 - M79.671) [facility] Other 10-14-2022 NotePROCEDURE: XR GI UPPER W [...] Electronically authenticated by: ESTELLA WHITEHEAD Date: 2022-04-11 10:21[facility]10-14-2022 NotePROCEDURE: XR GI UPPER W KUB [...] Electronically authenticated by: ESTELLA WHITEHEAD Date: 2022-04-11 10:21[facility]09-29-2022 Evaluation note* Encounter Date Diagnosis Assessment Notes Treatment Notes Treatment Clinical Notes Feb, Gastroesophageal ref lux disease, esophagitis presence not specified (ICD-10 - K21.9) [facility] Other 09-12-2022 History of Present illness Narrative* Joe Granda MD - 03/10/2022 3:37 PM EDT VIRTUAL VISIT PROGRESS NOTE This is a virtual visit using Zample video visit. It required patient-provider interaction for [...] which included preparing to see the patient, hivh-om-kpjx patient care, completing clinical documentation, obtaining and/or reviewing separately obtained history, and care coordination (not separately reported) Joe Granda MD documented in this encounterPremier Health08-17-2022 NoteHNO ID: [id number] Author: EUSEBIA Solo Service: Radiology Author Type: [...] BY: EUSEBIA SOLO February 12, 2022 2:58 [id number] History of Present illness Narrative* EUSEBIA Solo [...] 12, 2022 2:58 PM documented in this encounterPremier Health08-17-2022 Nurse Note* Elizabeth Stephens RN - 02/12/2022 [...] 2022 TIME: 2:30 PM documented in this encounterPremier Health07-25-2022 History of Present illness Narrative* Joe Granda MD - 01/20/2022 2:37 PM EDT VIRTUAL VISIT PROGRESS NOTE This is a virtual visit using Zample video visit. It required patient-provider interaction for [...] for this visit. ALLERGIES Allergen Reactions Adhes. Ynlb-Usnn-Ns* Rash Adhesive Tape-Silic* Rash Augmentin [Amoxicil* Diarrhea [...] which included preparing to see the patient, jmll-st-vova patient care, completing clinical documentation, obtaining and/or reviewing separately obtained history, performing a medically appropriate examination, counseling and educating the pat ient/family/caregiver, ordering medications, tests, or procedures, communicating with other HCPs (not separately reported) and care coordination (not separately reported) Joe Granda MD documented in this encounterPremier Health07-22-2022 History of Present illness Narrative* Alex Monsivais, [...] AM, 2 in the PM) www.bariatricfusion.com - Coinifyare Health: 1 Bariatric Multivitamin and Calcium Citrate (total of 1200- 1500 mg/day) * take calcium citrate separately from Multivitamin with iron at least 2 hours apart and 4 hours apart from additional calcium www.GoAlbertarenoInnova.Customer BOOM (formerly Renter's BOOM) - Bariatric Choice: 4 Complete Multivitamins (chewables) per day Www.bariatricchoice.com - Bariatric Advantage: 2 Multivitamins and 3 Calcium Citrate Chewables per day * take calcium citrate separately from Multivitamin with iron at least 2 hours apart and 4 hours apart from additional calcium Www.bariatricadvantage.Customer BOOM (formerly Renter's BOOM) 2. Do not skip meals. 3. Use [...] Slim Fast Advanced Nutrition OR Light Start Mcalister Breakfast Essentials mixed with 1% or skim [...] intake at meals and snacks Please call [phone], option 5. Leave a message for the navigation team when you are finishedwith all clearances (nutrition, psychology, medical, surgeon) 1.Starting ~3 weeks after surgery take: daily multivitamin Vit D3 3,000 international unit(s) Vit B12 500 mcg Vit B1 20-100 mg Iron 45 mg Calcium CITRATE 6239-7519 mg/day OR It is okay to use combination vitamin/minerals to reduce pill volume. (Examples Procare Health Bariatric Multivitamin- 45 (1) chewable/day AND 0113-8815 mg calcium citrate OR Bariatric Fusion chewable complete bariatric vitamin (2) chews, twice daily. IF DS: - Bariatric Fusion ADEK Complete Capsule (3x per day) AND 1579-6449 mg calcium citrate OR - Bariatric Advantage High ADEK Chewable Multivitamin (2x per day) AND 4871-1303 mg calcium citrate OR -Celebrate multi-ADEK chewable (3x per day) AND 5001-8739 mg calcium citrate AND 1 chewable Iron [...] Advanced Nutrition OR 5.5 packets Light Start Mcalister Breakfast Essentials mixed with 1% or skim [...] by: Alex Monsivais RD documented in this encounterPremier Health07-22-2022 Instructions* Patient Instructions* Alex Monsivais RD - 01/17/2022 9:12 AM EDT Please call [phone], option 5. Leave a message for the navigation team when you are finishedwith all clearances (nutrition, psychology, medical, surgeon) 1.Starting ~3 weeks after surgery take: daily multivitamin Vit D3 3,000 international unit(s) Vit B12 500 mcg Vit B1 20-100 mg Iron 45 mg Calcium CITRATE 9452-7412 mg/day OR It is okay to use combination vitamin/minerals to reduce pill volume. (Examples [place] Bariatric Multivitamin- 45 (1) chewable/day AND 6439-9108 mg calcium citrate OR Bariatric Fusion chewable complete bariatric vitamin (2) chews, twice daily. IF DS: - Bariatric Fusion ADEK Complete Capsule (3x per day) AND 5999-6835 mg calcium citrate OR - Bariatric Advantage High ADEK Chewable Multivitamin (2x per day) AND 7160-2958 mg calcium citrate OR -Celebrate multi-ADEK chewable (3x per day) AND 6012-4085 mg calcium citrate AND 1 chewable Iron [...] Advanced Nutrition OR 5.5 packets Light Start Mcalister Breakfast Essentials mixed with 1% or skim [...] up: 2 weeks pre-op documented in this encounterPremier Health06-22-2022 History and physical note * Joe Granda [...] PM PRIMARY CARE PHYSICIAN: Geneva Estrada, KATTY, MEDICAL SCRIBE This is a virtual visit using alternative [...] Negative for: dysuria, frequent urination and hematuria. CIVILIAN TECHNICIAN: +amenorrhea with IUD Endocrine: Negative for: diabetes [...] medication comments found. ALLERGIES Allergen Reactions Adhes. Yqui-Csmk-Pv* Rash Adhesive Tape-Silic* Rash Augmentin [Amoxicil* Diarrhea [...] or any previous visit (from the past 68543 hour(s)). Assessment TONEY on CPAP Assessment: not currently using CPAP Thrombocytosis ([facility]) Assessment: s/p splenectomy in 2014, last labs available in [facility] from 01/2021 showing platelets at 488, plan to discuss with Dr. Granda for review. Bipolar affective disorder (HCC) Assessment: stable on current rx per patient Gastroesophageal reflux disease Assessment: on PPI and sucralfate Morbid obesity with body mass index of 60.0-69.9 in adult ([facility]) Assessment: Body mass index is 66.09 kg/m . Dugan Activity Status Index: METS: Climb a flight of stairs or walk up a hill (5.50 METs) DASI Score: 5.5 Patient denies any chest pain or undue shortness of breath with the above physical activity. Clinical Frailty Scale: 3. Well, with treated comorbid disease [id number] Score: Age: <65 Sex: female [id number] Score: 1 ARISCAT Score: Age: <=50 ARISCAT [...] SIGNATURE: Melissa Olivas PA-C PATIENT NAME: Susi Borjahip DATE: December 05, 2021 TIME: 1:10 PM PAGER/CONTACT #: documented in this encounterPremier Health06-09-2022 History of Present illness Narrative* Akosua Peraza RD - 12/05/2021 11:45 AM EDT No show for nutrition appointment on 12/05/21. Signed by: Akosua Peraza RD documented in this encounterPremier Health05-18-2022 Evaluation note* Encounter Date Diagnosis Assessment Notes [...] sprain elsa e care material was printed [facility] Other 05-11-2022 History of Present illness Narrative* Joe Granda MD - 11/06/2021 9:40 AM EDT Assessment NEW BARIATRIC PATIENT PATIENT NAME: Susi Ortiz REASON FOR CONSULT: Morbid Obesity REQUESTING PHYSICIAN: Self DATE of SERVICE: 11/06/2021 TIME of SERVICE: 9:40 AM PCP: Geneva Estrada, KATTY, MEDICAL SCRIBE CC: Morbid Obesity HPI: Ms. Ortiz is [...] use: Never ALLERGIES: ALLERGIES Allergen Reactions Adhes. Ukyl-Lemd-Zt* Rash Adhesive Tape-Silic* Rash Augmentin [Amoxicil* Diarrhea [...] which included preparing to see the patient, xywk-ua-gvko patient care, completing clinical documentation, obtaining and/or reviewing separately obtained history, ordering medications, tests, or procedures and care coordination (not separately reported). Joe Granda MD documented in this encounterPremier Health05-09-2022 Instructions* Patient Instructions* Alex Monsivais, RD - 11/04/2021 12:44 PM EDT 1. Research the post-op vitamin options (can change depending on what procedure is done) Some examples of vitamins/mineral companies: - Bariatric Fusion: 4 Complete Chewable Multivitamins per day (2 in the AM, 2 in the PM) www.bariatricfusion.Customer BOOM (formerly Renter's BOOM) - Procare Health: 1 Bariatric Multivitamin and Calcium Citrate (total of 1200- 1500 mg/day) * take calcium citrate separately from Multivitamin with iron at least 2 hours apart and 4 hours apart from additional calcium www.Electron Database.Customer BOOM (formerly Renter's BOOM) - Bariatric Choice: 4 Complete Multivitamins (chewables) per day Www.bariatricchoice.Customer BOOM (formerly Renter's BOOM) - Bariatric Advantage: 2 Multivitamins and 3 Calcium Citrate Chewables per day * take calcium citrate separately from Multivitamin with iron at least 2 hours apart and 4 hours apart from additional calcium Www.bariatricadVsnapage.Customer BOOM (formerly Renter's BOOM) 2. Do not skip meals. 3. Use [...] Slim Fast Advanced Nutrition OR Light Start Mcalister Breakfast Essentials mixed with 1% or skim milk OR Atkins Protein Shakes (15 gm protein version) OR Glucose Controlled Boost Pre-op goal weight: 380 pounds - per Dr. Granda Protein needs: 77 gm per day Nutrition Monitoring & Evaluation: 1-2 # weight loss per week prior to surgery Criteria: Weight check Need for Follow up: 1 month, [phone] documented in this encounter[facility]05-09-2022 History of Present illness Narrative* Alex Monsivais, RD - 11/04/2021 12:43 PM EDT AMBULATORY [...] to Surgery by next session [email or web address] n 2. Do not skip meals. [...] AM, 2 in the PM). [email or web address] - [employer] [facility]: 1 Bariatric Multivitamin and Calcium Citrate (total of 1200- 1500 mg/day) * take calcium citrate separately from Multivitamin with iron at least 2 hours apart and 4 hours apart from additional calcium www.Careerise - Bariatric Choice: 4 Complete Multivitamins (chewables) per day Www.[email or web address].Customer BOOM (formerly Renter's BOOM) - Bariatric Advantage: 2 Multivitamins and 3 Calcium Citrate Chewables per day * take calcium citrate separately from Multivitamin with iron at least 2 hours apart and 4 hours apart from additional calcium. Www.[email or web address].Customer BOOM (formerly Renter's BOOM) For reflux: 1. Try to eat something every 2-3 hours and do not skip meals. Large meals may increase stomach pressure and make your reflux worse. 2. Avoid possible trigger foods as follows: Caffeine (regular coffee, regular tea) Carbonated beverages Mints (peppermint, spearmint) Fried, greasy foods Garlic and onions Mammoth fruits, juices Alcohol Tomato products Spicy foods [...] and 4 hours apart from additional calcium www.[email or web address] Database.Customer BOOM (formerly Renter's BOOM) - Bariatric Choice: 4 Complete Multivitamins (chewables) [...] Slim Fast Advanced Nutrition OR Light Start Mcalister Breakfast Essentials mixed with 1% or skim milk OR Atkins Protein Shakes (15 gm protein version) OR Glucose Controlled Boost Pre-op goal weight: 380 pounds - per Dr. Granda Protein needs: 77 gm per day Nutrition Monitoring & Evaluation: 1-2 # weight loss per week prior to surgery Criteria: Weight check Need for Follow up: 1 month, [phone] Group Appointment Start Time: 11:45 AM Group Appointment End Time: 12:29 PM Time Spent on Consult: 44 minutes - Group Signed by: Alex Monsivais RD documented in this encounterPremier Health05-02-2022 Evaluation note* Encounter Date Diagnosis Assessment Notes Treatment Notes Treatment Clinical Notes October, Gastroesophageal ref lux disease, esophagitis presence not specified (ICD-10 - K21.9) [place] [facility] Other 04-15-2022 Evaluation note* Encounter Date Diagnosis Assessment Notes Treatment Notes Treatment Clinical Notes Sep, Other d/t progessi vely worsening shortness of breath and hypoxia, patient was recommended to go to ER for higher acuity care [facility] [employer] Other 04-07-2022 Evaluation note* Encounter Date Diagnosis [...] [facility] material was printed [facility] Other 04-04-2022 History of Present illness Narrative* 09/30/2021 * 9:15AM * SUSI ORTIZ , 36 year is contacted for an (audio-visual, or audio only) Telehealth visit. * Today's visit was provided through telemedicine conferencing: Using [employer] platform. * Consent: * The concept of [...] She went in for evaluation with her SITE SAFETY MANAGER in early January 2021, and was subsequently found to have a complex ovarian cyst. She was taken for surgery at [facility] later that month, and reports that the cyst was unable to be removed, but is uncertain why. U saudortunately the operative report from this procedure is [...] in 2019, which was also performed at [facility]. 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 We are sure that you will still have some additional questions and encourage you to reach out to your care provider via [employer] OR your Patient Navigator. Patient Navigators are assigned alphabetically by patient last name. The contact information for each Navigator is listed below. Last names A-E= Malorie Mike Last names F-L = Yoshi Last names [...] free to ask for a hard copy. [email or web address] Once you complete all of the requirements (testing, consultations, diet, etc) from each provider, please call [phone] and select option #5 to initiate insurance approval. Please note scheduling information It is important to keep track of your scheduled appointments to ensure successful completion of oursurgical program. Any missed appointments can further delay your pre-surgical work-up. [facility] does offer an opt-in option for getting text message appointment reminders. Please follow the link below if you would like to opt into this service. [email or web address] As part of your surgical work up, [...] follow up visit or rescheduling, Please call [phone] OR [phone] Any testing that is completed outside of [facility] will need faxed to [phone]. We look forward to working with you on this journey, Jayshree Huffman APRN.CNP documented in this encounterPremier Health03-28-2022 History of Present illness Narrative* Jayshree Huffman [...] to severe GERD. Sleeve in 2017 at [facility] in [place]. 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 ALLERGIES Allergen Reactions Adhes. Binm-Jkkx-Rs* Rash Adhesive Tape-Silic* Rash Augmentin [Amoxicil* Diarrhea [...] which included preparing to see the patient, psyt-pr-mjzt patient care, completing clinical documentation, obtaining and/or reviewing separately obtained history, counseling and educating the patient/family/caregiver, ordering medications, keli ts, or procedures and communicating with other HCPs (not separately reported). Medical Decision Making Jayshree Huffman APRN.CNP documented in this encounterPremier Health11-19-2021 History and physical note * Humza Walter [...] a sleeve gastrectomy done in [address] [facility]. Her preop weight was 380 lbs. Max [...] Minimally Invasive General Surgery documented in this encounterPremier [facility]Chief complaint Narrative - Reported* An interactive audio [...] Other intestinal malabsorption documented in this encounter [facility]* Diagnosis Gastroesophageal reflux disease, unspecified whether esophagitis present- Primary Class 3 severe obesity with serious comorbidity and body mass index (BMI) of 60.0 to 69.9 in adult, unspecified obesity type (HCC) TONEY on CPAP Obstructive sleep apnea (adult) (pediatric) S/P laparoscopic sleeve gastrectomy Bariatric surgery status Postoperative malabsorption Other and unspecified postsurgical nonabsorption documented in this encounter [facility]* Diagnosis Dysphagia, unspecified type- Primary Gastroesophageal reflux disease, unspecified whether esophagitis present History of sleeve gastrectomy documented in this encounter [facility]* Diagnosis History of sleeve gastrectomy- Primary BMI 70 and over, adult (HCC) Body Mass Index 70 and over, adult Dietary counseling and surveillance Dietary surveillance and counseling documented in this encounter [facility] note* Diagnosis History of sleeve gastrectomy- Primary Gastric fistula Fistula of stomach or duodenum documented in this encounter [facility] note* Diagnosis NO SHOW- Primary documented in this encounter [facility] note* Diagnosis TONEY on CPAP Obstructive sleep apnea (adult) (pediatric) Gastroesophageal reflux disease, unspecified whether esophagitis present S/P laparoscopic sleeve gastrectomy Bariatric surgery status documented in this encounter [facility]No [facility] Other Evaluation note* Diagnosis Gastroesophageal reflux disease, unspecified whether esophagitis present- Primary BMI 70 and over, adult (HCC) Body Mass Index 70 and over, adult History of sleeve gastrectomy Dietary counseling and surveillance Dietary surveillance and counseling documented in this encounter [facility] note* Diagnosis Epigastric pain- Primary Abdominal pain, epigastric Gastroesophageal reflux disease without esophagitis Esophageal reflux History of sleeve gastrectomy documented in this encounter [facility] note* Diagnosis History of sleeve gastrectomy Gastric fistula Fistula of stomach or duodenum documented in this encounter [facility] note* Diagnosis NO SHOW- Primary documented in this encounter [facility] note* Diagnosis History of sleeve gastrectomy- Primary documented in this encounter [facility] noteNo assessment information [facility] Work Phone: Evaluation note* Diagnosis Gastroesophageal reflux disease, unspecified whether esophagitis present- Primary BMI 70 and over, adult ([facility]) Body Mass Index 70 and over, adult documented in this encounter [facility] note* Diagnosis Morbid obesity with body mass index of 60.0-69.9 in adult ([facility])- Primary Morbid obesity Gastroesophageal reflux disease, unspecified whether esophagitis present BMI 70 and over, adult ([facility]) Body Mass Index 70 and over, adult Gastroesophageal reflux disease, unspecified whether esophagitis present documented in this encounter [facility] note* Diagnosis Morbid obesity with body mass index of 60.0-69.9 in adult ([facility])- Primary Morbid obesity documented in this encounter [facility] note* Diagnosis Weight disorder- Primary Other symptoms concerning nutrition, metabolism, and development BMI 70 and over, adult ([facility]) Body Mass Index 70 and over, adult Preop testing Preoperative examination, unspecified Abnormal weight gain Snoring Other dyspnea and respiratory abnormality Sleep-disordered breathing Other sleep disturbances Fatigue, unspecified type S/P bariatric surgery Bariatric surgery status documented in this encounter [facility] note* Diagnosis Morbid obesity with BMI of 70 and over, adult ([facility])- Primary Morbid obesity documented in this encounter [facility] note* Diagnosis S/P gastric sleeve procedure- Primary Weight gain following gastric bypass surgery BMI 60.0-69.9, adult ([facility]) Body Mass Index 60.0-69.9, adult Dietary counseling and surveillance Dietary surveillance and counseling documented in this encounter [facility] note* Diagnosis Weight gain following gastric bypass surgery- Primary Abnormal weight gain Preop testing Preoperative examination, unspecified Snoring Other dyspnea and respiratory abnormality Sleep-disordered breathing Other sleep disturbances Fatigue, unspecified type S/P bariatric surgery Bariatric surgery status S/P gastric sleeve procedure Dietary counseling and surveillance Dietary surveillance and counseling BMI 60.0-69.9, adult ([facility]) Body Mass Index 60.0-69.9, adult documented in this encounter [facility] note* Diagnosis Pre-op evaluation- Primary Preoperative examination, unspecified Morbid obesity with body mass index of 60.0-69.9 in adult ([facility]) Morbid obesity Gastroesophageal reflux disease, unspecified whether esophagitis present TONEY on CPAP Obstructive sleep apnea (adult) (pediatric) Bipolar affective disorder, remission status unspecified ([facility]) Thrombocytosis Essential thrombocythemia Migraine without status migrainosus, not intractable, unspecified migraine type documented in this encounter [facility]* Diagnosis Patient left without being seen- Primary Surgical or other procedure not carried out because of patient's decision documented in this encounter [facility]* Diagnosis S/P gastrointestinal surgery, follow-up exam- Primary Follow-up examination, following other surgery Status post biliopancreatic diversion with duodenal switch Post-operative nausea and vomiting Nausea with vomiting documented in this encounter [facility] note* Diagnosis Impaired intestinal absorption- Primary Unspecified intestinal malabsorption S/P biliopancreatic diversion with duodenal switch Class 3 severe obesity with body mass index (BMI) of 60.0 to 69.9 in adult, unspecified obesity type, unspecified whether serious comorbidity present (HCC) Dietary counseling and surveillance Dietary surveillance and counseling documented in this encounter [facility] note* Diagnosis S/P bariatric surgery- Primary Bariatric surgery status Body mass index (BMI) 60.0-69.9, adult ([facility]) Dietary counseling and surveillance Dietary surveillance and counseling documented in this encounter [facility] note* Diagnosis S/P gastrointestinal surgery, follow-up exam- Primary Follow-up examination, following other surgery S/P biliopancreatic diversion with duodenal switch Open abdominal incision with drainage, subsequent encounter Impaired intestinal absorption Unspecified intestinal malabsorption Class 3 severe obesity with body mass index (BMI) of 60.0 to 69.9 in adult, unspecified obesity type, unspecified whether serious comorbidity present (HCC) documented in this encounter [facility]* Diagnosis S/P bariatric surgery- Primary Bariatric surgery status Impaired intestinal absorption Unspecified intestinal malabsorption Body mass index (BMI) 60.0-69.9, adult ([facility]) Dietary counseling and surveillance Dietary surveillance and counseling documented in this encounter [facility] note* Diagnosis Encounter for surgical aftercare following [...] Bariatric surgery status documented in this encounter [facility] note* Diagnosis BMI 60.0-69.9, adult (HCC)- Primary Body Mass Index 60.0-69.9, adult S/P bariatric surgery Bariatric surgery status documented in this encounter [facility] general Narrative - Reported* Type Description Date Medical History GERD Medical History depression Medical History bi-polar Medical History herniated disc Medical History pituitary microadenoma 3 mm Medical History migraines Medical History Fibromyalgia Surgical History cholecystectomy 2008 Surgical History Procedure:Carpal Tunnel 2009, 2 010 [...] X'S 2 Hospitalization History SEE ABOVE SURGERY [facility] - Reported* Type Description Date [...] X'S 2 Hospitalization History SEE ABOVE SURGERY [facility] Other Reason for referral (narrative)* Diagnostic Procedure [...] GI TRC SINGLE CONTRAST STUDY Jayshree Huffman APRN.MEDICAL SCRIBE [address] [place] [address] Xr Imaging Referral ID Status Reason Start Date Expiration Date Visits Requested Visits Authorized [id number] Pending Review Auto-Generat ed Referral 09/23/2021 10/23/2022 1 1 * Outpatient Procedure (Routine) - Pending Review Specialty Diagnoses / Procedures Referred By Tiarra somers Referred To Contact [facility] Diagnoses TONEY on CPAP Gastroesophageal reflux disease, unspecified whether esophagitis present Class 3 severe obesity with serious comorbidity and body mass index (BMI) of 60.0 to 69.9 in adult, unspecified obesity type (HCC) Postoperative malabsorption Procedures ECG COMPLETE ECG ROUTINE ECG W/LEAST 12 LDS W/I&R Jayshree Huffman APRN.CNP [id number] [place] [address] Referral ID Status Reason Start Date Expiration Date Visits Requested Visits Authorized [id number] Pending Review Auto-Generat ed Referral 09/23/2021 09/23/2022 1 1 [facility] for referral (narrative)* Outpatient Procedure (Routine) - Closed Specialty Diagnoses / Procedures Referred By Tiarra somers Referred To Contact [facility] Diagnoses TONEY on CPAP Gastroesophageal reflux disease, unspecified whether esophagitis present S/P laparoscopic sleeve gastrectomy Procedures EGD DIAGNOSTIC ESOPHAGOGASTRODUODENOSCO PY TRANSORAL DIAGNOSTIC Jayshree Huffman APRN.CNP [address] [address] [place] [address] Referral ID Status Reason Start Date Expiration Date V isits Requested Visits Authorized [id number] Closed Auto-Generate d Referral 09/24/2021 09/24/2022 1 1 [facility] for referral (narrative)* Outpatient Procedure (Routine) - Pending Review Specialty Diagnoses / Procedures Referred By Tiarra somers Referred To Contact [facility] Diagnoses Abnormal weight gain Preop testing Snoring Sleep-disordered breathing Fatigue, unspecified type S/P bariatric surgery BMI 70 and over, adult ([facility]) Procedures ECG COMPLETE ECG ROUTINE ECG W/LEAST 12 LDS W/I&R Amina Nieto MD [address] [place] [address] [facility] [address] [address] Referral ID Status Reason Start Date Expiration Date Visits Requested Visits Authorized [id number] Pending Review Auto-Generat ed Referral 06/04/2022 05/31/2023 1 1 * Consult, Test, Treat (Routine) - Authorized Specialty Diagnoses / Procedures Referred By Tiarra somers Referred To Contact Diagnoses Abnormal weight gain Preop testing Snoring Sleep-disordered breathing Fatigue, unspecified type S/P bariatric surgery BMI 70 and over, adult ([facility]) Procedures CONSULT TO SLEEP MEDICINE - ADULT OFFICE/OUTPATIENT [facility] 60-74 MINUTES Amina Nieto MD [address] [id number] Referral ID Status Reason Start Date Expiration Date Visits Requested Visits Authorized [id number] Authorized PCP Requested Referral 06/04/2022 05/31/2023 1 1 [facility] for referral (narrative)* Outpatient Procedure [...] ECG W/LEAST 12 LDS W/I&R Shruti Alvarado, JUSTICE PROFESSOR.MEDICAL SCRIBE [address] [place] [address] [facility] [address] [address] Referral ID Status Reason Start Date Expiration Date Visits Requested Visits Authorized [id number] Pending Review Auto-Generat ed Referral 03/10/2023 03/09/2024 1 1 [facility]* Outpatient Procedure (Routine) - Closed Specialty Diagnoses / Procedures Referred By Contac t Referred To Contact [facility] Diagnoses TONEY on CPAP Gastroesophageal reflux disease, unspecified whether esophagitis present S/P laparoscopic sleeve gastrectomy Procedures EGD DIAGNOSTIC ESOPHAGOGASTRODUODENOSCO PY TRANSORAL DIAGNOSTIC Jayshree Huffman APRN.CNP [address] [place] [address] [facility] [address] [place] [address] Referral ID Status Reason Start Date Expiration Date V isits Requested Visits Authorized [id number] Closed Auto-Generate d Referral 09/24/2021 09/24/2022 1 1 [facility] Summary Purpose Family History No Family History [...] FoundDocuments on File Type Date Recorded Patient 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 Supervisor Expl anation ACP-Advance Directive ACP-Power of Configurator Latest Code Status on File Code Status Date Activated Date Inactivated Comments Full Code 01/16/2017 11:20 PM 01/21/2017 5:23 PM Documents on File Type Date Recorded Patient 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 Controller Supervisor Expl anation ACP-Advance Directive ACP-Power of Configurator Latest Code Status on File Code Status Date Activated Date Inactivated Comments Full Code 01/16/2017 11:20 PM 01/21/2017 5:23 PM Documents on File Type Date Recorded Patient 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 Controller Supervisor Expl anation Advance Directive(s) 10/04/2015 12:43 PM Advance Directive(s) 09/25/2015 12:29 PM Documents on File Type Date Recorded Patient 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 Controller Supervisor Expl anation Advance Directive(s) 10/04/2015 12:43 PM Advance Directive(s) 09/25/2015 12:29 PM Advance Directive Response Recorded Date/ Time Advance Directives No October 07, 2 019 3:58pm Reason for Referral Status Reason Specialty Diagnoses / Procedures Referre d By Contact Referred To Contact [facility] Diagnoses S/P laparoscopic sleeve gastrectomy Procedures FL UGI FL UGI Shaylee Miles, [address] [place] [address] Specialty Diagnoses / Procedures Referred By Contac t Referred To Contact Diagnoses S/P laparoscopic sleeve gastrectomy Gastroesophageal reflux disease, unspecified whether esophagitis present Procedures XR FLUORO UPPER GI, WATER SOLUBLE AND/OR BARIUM CONTRAST Humza Walter MD [address] [place] [id number] Referral ID Status Reason Start Date Expiration Date V isits Requested Visits Authorized [id number] Auth Not Needed 05/17/2021 06/11/2022 1 1 Specialty Diagnoses / Procedures Referred By Contac t Referred To Contact Diagnoses S/P laparoscopic sleeve gastrectomy TONEY on CPAP Morbid obesity with body mass index of 50 or higher Gastroesophageal reflux disease, unspecified whether esophagitis present Other intestinal malabsorption Procedures ECG Humza Walter MD [address] [place] [address] Referral ID Status Reason Start Date Expiration Date V isits Requested Visits Authorized [id number] New Request 05/17/2021 06/11/2022 1 1 Specialty Diagnoses / Procedures Referred By Contac t Referred To Contact Psychology Diagnoses S/P laparoscopic sleeve gastrectomy TONEY on CPAP Morbid obesity with body mass index of 50 or higher Gastroesophageal reflux disease, unspecified whether esophagitis present Other intestinal malabsorption Humza Walter MD [address] [place] [address] Referral ID Status Reason Start Date Expiration Date V isits Requested Visits Authorized [id number] New Request 05/17/2021 06/11/2022 1 1 Specialty Diagnoses / Procedures Referred By Contac t Referred To Contact Nutrition and Dietetics Diagnoses S/P laparoscopic sleeve gastrectomy TONEY on CPAP Morbid obesity with body mass index of 50 or higher Gastroesophageal reflux disease, unspecified whether esophagitis present Other intestinal malabsorption Humza Walter MD [address] [place] [address] Referral ID Status Reason Start Date Expiration Date V isits Requested Visits Authorized [id number] New Request 05/17/2021 06/11/2022 1 1 Specialty Diagnoses / Procedures Referred By Contac t Referred To Contact CT IMAGING Diagnoses History of sleeve gastrectomy Gastric fistula Procedures CT ABD/PEL W IVCON CT ABD & PELVIS W/[place] [address] [place] [address] Ct Imaging Referral ID Status Reason Start Date Expiration Date Visits Requested Visits Authorized [id number] Pending Review Auto-Generat ed Referral 11/04/2021 12/04/2022 1 1 Specialty Diagnoses / Procedures Referred By Contac t Referred To Contact XR IMAGING Diagnoses History of sleeve gastrectomy Gastric fistula Procedures XR UPPER GI SINGLE CONTRAST RADIOLOGIC EXAM UPR GI [place] [address] [place] [address] Xr Imaging Referral ID Status Reason Start Date Expiration Date Visits Requested Visits Authorized [id number] Pending Review Auto-Generat ed Referral 11/04/2021 12/04/2022 1 1 Referral ID Status Reason Start Date Expiration Date V isits Requested Visits Authorized [id number] Closed Auto-Generate d Referral 01/05/2022 06/28/2022 2 2 Specialty Diagnoses / [facility] Referred To Contact Diagnoses BMI 70 and over, adult (HCC) Gastroesophageal reflux disease, unspecified whether esophagitis present Procedures IN PERSON CONSULT TO PACC Jayshree Huffman APRN.MEDICAL SCRIBE [address] [place] [address] Referral ID Status Reason Start Date Expiration Date Visits Requested Visits Authorized [id number] Ref Not Required PCP Requested Referral 2 [...] questions, PLEASE call your doctor or the [facility] at documented in this [...] section and content) DATE CREATED AUTHOR 12/23/2017 [facility] DATE CREATED AUTHOR AUTHOR'S ORGANIZ ATION 03/29/2020 [facility] DATE CREATED AUTHOR AUTHOR'S ORGANIZ ATION 04/07/2020 [facility] DATE CREATED AUTHOR AUTHOR'S ORGANIZ ATION 04/11/2020 [facility] DATE CREATED AUTHOR AUTHOR'S ORGANIZ ATION 10/01/2021 [employer] DATE CREATED AUTHOR AUTHOR'S ORGANIZ ATION 12/11/2021 [facility] DATE CREATED AUTHOR AUTHOR'S ORGANIZ ATION 02/19/2022 [facility] DATE CREATED AUTHOR AUTHOR'S ORGANIZ ATION 11/07/2022 [facility] DATE CREATED AUTHOR AUTHOR'S ORGANIZ ATION 12/15/2022 [facility] DATE CREATED AUTHOR AUTHOR'S ORGANIZ ATION 08/18/2023 [facility] DATE CREATED AUTHOR AUTHOR'S ORGANIZ ATION 12/05/2023 [facility] DATE CREATED AUTHOR AUTHOR'S ORGANIZ ATION 12/13/2023 [facility] DATE CREATED AUTHOR AUTHOR'S ORGANIZ ATION 03/19/2024 [facility] EPIC Reason for Visit (unrecogniz ed section and content) Status Reason Specialty Diagnoses / Procedures Re ferred By Contact Referred To Contact Diagnoses Obesity OBESITY Procedures VT ESOPHAGOGASTRODUODENOSCOPY TRANSORAL DIAGNOSTIC EGD ESOPHAGOGASTRODUODENOSCOPY Kylah Vargas, [address] [facility] [address] [place] [address] [facility] Reason Comments Consult Est Care/Revision/ S leeve 05/2017 Reason Comments Obesity GERD Reason Onset Date Comments Reassessment 11/04/2021 Patient Education 11/04/2021 Reason Comments New Patient Reason Comments No Show Reason Onset Date Comments Reassessment 01/17/2022 Patient Education 01/17/2022 Specialty Diagnoses / Procedures Referred By Contac t Referred To Contact Nutrition / GENERAL SURGERY Diagnoses Follow-up exam OrangePurple/0 diet/Shidler/05/2017 LSG-complications gerd Procedures PHYS/QHP TELEPHONE EVALUATION 5-10 MIN VIDEO GROUP (ZOOM) MD Yodit Jason Erin, RD [address] [place] [address] Referral ID Status Reason Start Date Expiration Date Visits Re quested Visits Authorized [id number] Closed 01/17/2022 06/28/2022 1 1 Reason Comments Obesity Specialty Diagnoses / Procedures Referred By Contac t Referred To Contact General Surgery / GENERAL SURGERY Diagnoses Follow-up exam imaging follow up Procedures PHYS/QHP TELEPHONE EVALUATION 5-10 [place] [address] [place] [address] [place] [address] [place] [address] Referral ID Status Reason Start Date Expiration Date Visits Re quested Visits Authorized [id number] Closed 01/20/2022 06/28/2022 1 1 Specialty Diagnoses / Procedures [facility] Referred To Contact CT IMAGING Diagnoses History of sleeve gastrectomy Gastric fistula Procedures CT ABD/PEL W IVCON CT ABD & PELVIS W/[place] [address] [place] [address] Ct Imaging Referral ID Status Reason Start Date Expiration Date V isits Requested Visits Authorized [id number] Closed Auto-Generate d Referral 01/05/2022 06/28/2022 2 [...] Education Specialty Diagnoses / Procedures [facility] Referred To Contact Diagnoses Abnormal weight gain Preop testing Snoring Sleep-disordered breathing Fatigue, unspecified type S/P bariatric surgery BMI 70 and over, adult (HCC) Procedures CONSULT TO SLEEP MEDICINE - ADULT OFFICE/OUTPATIENT [facility] 60-74 MINUTES Amina Nieto MD [address] [place] [address] Referral ID Status Reason Start Date Expiration Date V isits Requested Visits Authorized [id number] Closed PCP Requested Referral 06/04/2022 05/31/2023 1 1 Reason Comments Anesthesia Consult Specialty Diagnoses / Procedures [facility] Referred To Contact ANESTHESIOLOGY Diagnoses Preop examination Procedures PREOP ANES OR PROXY B/4 SURG Joe Granda MD [address] [place] [address] [address] [place] [address] Referral ID Status Reason Start Date Expiration Date V isits Requested Visits Authorized [id number] Authorized 06/29/2022 06/28/2023 99 99 Reason Comments Patient Left Without Being Seen Specialty Diagnoses / Procedures Referred By Tiarra t Referred To Contact ANESTHESIOLOGY Diagnoses Preop examination Procedures PREOP ANES OR PROXY SURG Joe Granda MD [address] [place] [address] Pre Anes [address] [place] [address] Reason Comments Post Op Reason Comments Post Op 7-10 day gastrectomy Reason Comments Post Op S/p BPD/DS 08/04/23 Reason Comments Follow Up Weight Loss Surgery Reason Comments Refill Request Care Teams (unrecognized sec tion and content) Talent Acquisition Manager Relationship Specialty Start Date End Date Elizabet Simental DO [address] [place] [address] PCP - General Family Medicine 03/21/21 Talent Acquisition Manager Relationship Specialty Start Date End Date Geneva Estrada, MEDICAL SCRIBE [address] [place] [address] PCP - General Family Practice 10/01/11 Talent Acquisition Manager Relationship Specialty Start Date End Date Geneva Estrada, MEDICAL SCRIBE [address] [place] [address] PCP - General Family Practice 10/01/11 Talent Acquisition Manager Relationship Specialty Start Date End Date Geneva Estrada, MEDICAL SCRIBE [address] [place] [address] PCP - General Family Practice 10/01/11 Talent Acquisition Manager Relationship Specialty Start Date End Date Geneva Estrada, MEDICAL SCRIBE [address] [place] [address] PCP - General Family Practice 10/01/11 Talent Acquisition Manager Relationship Specialty Start Date End Date Geneva Estrada, MEDICAL SCRIBE [address] [place] [address] PCP - General Family Practice 10/01/11 Talent Acquisition Manager Relationship Specialty Start Date End Date LucasshermanGeneva mauro, MEDICAL SCRIBE [address] [place] [address] PCP - General Family Practice 10/01/11 Talent Acquisition Manager Relationship Specialty Start Date End Date Geneva Estrada, MEDICAL SCRIBE [address] [place] [address] PCP - General Family Practice 10/01/11 Talent Acquisition Manager Relationship Specialty Start Date End Date Geneva Estrada, MEDICAL SCRIBE [address] [place] [address] PCP - General Family Practice 10/01/11 Talent Acquisition Manager Relationship Specialty Start Date End Date [facility]E [address] [place] [address] PCP - General Family Practice 10/01/11 Talent Acquisition Manager Relationship Specialty Start Date End Date LucasshermanGeneva mauro, MEDICAL SCRIBE [address] [place] [address] PCP - General Family Practice 10/01/11 Talent Acquisition Manager Relationship Specialty Start Date End Date Geneva Estrada, MEDICAL SCRIBE [address] [place] [address] PCP - General Family Practice 10/01/11 Talent Acquisition Manager Relationship Specialty Start Date End Date Geneva Estrada, MEDICAL SCRIBE [address] [place] [address] PCP - General Family Medicine 10/01/11 Team Status: Inactive Member Role Status Dates NON STAFF Primary Care Provider Active Christa Nayeli , HAND PROFILER-C Attending Provider Active Team Status: Active Member Role Status Dates NON STAFF Primary Care Provider Active Talent Acquisition Manager Relationship Specialty Start Date End Date Rumschlaroro, Elizabet [address] [place] [address] PCP - General Family Medicine 04/16/22 Talent Acquisition Manager Relationship Specialty Start Date End Date Rumschlag, Elizabet [address] [place] [address] PCP - General Family Medicine 04/16/22 Talent Acquisition Manager Relationship Specialty Start Date End Date Rumschlag, Elizabet [address] [place] [address] PCP - General Family Medicine 04/16/22 Talent Acquisition Manager Relationship Specialty Start Date End Date Rumschlaroro, Elizabet [address] [place] [address] PCP - General Family Medicine 04/16/22 Talent Acquisition Manager Relationship Specialty Start Date End Date Rumschlaroro, Elizabet [address] [place] [address] PCP - General Family Medicine 04/16/22 Talent Acquisition Manager Relationship Specialty Start Date End Date Rumschlaroro, Elizabet [address] [place] [address] PCP - General Family Medicine 04/16/22 Talent Acquisition Manager Relationship Specialty Start Date End Date Rumschlag, Elizabet [address] [place] [address] PCP - General Family Medicine 04/16/22 Talent Acquisition Manager Relationship Specialty Start Date End Date Rumschlag, Elizabet [address] [place] [address] PCP - General Family Medicine 04/16/22 Talent Acquisition Manager Relationship Specialty Start Date End Date RumschlagKaylinty [address] [place] [address] PCP - General Family Medicine 04/16/22 Talent Acquisition Manager Relationship Specialty Start Date End Date Rumschlag, Elizabet [address] [place] [address] PCP - General Family Medicine 04/16/22 Talent Acquisition Manager Relationship Specialty Start Date End Date Rumschlag, Elizabet [address] [place] [address] PCP - General Family Medicine 04/16/22 Talent Acquisition Manager Relationship Specialty Start Date End Date Rumschlag, Elizabet [address] [place] [address] PCP - General Family Medicine 04/16/22 Talent Acquisition Manager Relationship Specialty Start Date End Date Rumschlag, Elizabet [address] [place] [address] PCP - General Family Medicine 04/16/22 Talent Acquisition Manager Relationship Specialty Start Date End Date Rumschlag, Elizabet, DO [address] [place] [address] PCP - General Family Medicine 04/16/22 Talent Acquisition Manager Relationship Specialty Start Date End Date Rumschlag, Elizabet, DO [address] [place] [address] PCP - General Family Medicine 04/16/22 Talent Acquisition Manager Relationship Specialty Start Date End Date Rumschlag, Elizabet, DO [address] [place] [address] PCP - General Family Medicine 04/16/22 Talent Acquisition Manager Relationship Specialty Start Date End Date Rumschlag, Elizabet, DO [address] [place] [address] PCP - General Family Medicine 04/16/22 Talent Acquisition Manager Relationship Specialty Start Date End Date Rumschlag, Elizabet, DO [address] [place] [address] PCP - General [facility] Medicine 04/16/22 Talent Acquisition Manager Relationship Specialty Start Date End Date Rumschlag, Elizabet, DO [address] [place] [address] PCP - [facility] Medicine 04/16/22 Talent Acquisition Manager Relationship Specialty Start Date End Date Rumschlag, Elizabet, DO [address] [place] [address] PCP - General [facility] Medicine 04/16/22 Talent Acquisition Manager Relationship Specialty Start Date End Date Rumschlag, Elizabet, DO [address] [place] [address] PCP - General [facility] Medicine 04/16/22 Talent Acquisition Manager Relationship Specialty Start Date End Date Rumschlag, Elizabet, DO [address] [place] [address] PCP - General Family Medicine 04/16/22 Talent Acquisition Manager Relationship Specialty Start Date End Date Rumschlag, Elizabet, DO [address] [place] [address] PCP - General Family Medicine 04/16/22 Source Comments (unrecognize d section and content) In the event this informatio n is protected by the [facility] Confidentiality of Alcohol and Drug Abuse Patient Records regulations: The Federal rules restrict any use of the information to criminally investigate or prosecute any alcohol or drug abuse patient.Premier HealthIn the event this information is protected by the Federal Confidentiality of Alcohol and Drug Abuse Patient Records regulations: The Federal rules restrict any use of the information to criminally investigate or prosecute any alcohol or drug abuse patient.Premier HealthIn the event this information is protected by the Federal Confidentiality of Alcohol and Drug Abuse Patient Records regulations: The Federal rules restrict any use of the information to criminally investigate or prosecute any alcohol or drug abuse patient.Premier HealthIn the event this information is protected by [...] or prosecute any alcohol or drug abuse patient.Premier HealthIn the event this information is protected by the Federal Confidentiality of Alcohol and Drug Abuse Patient Records regulations: The Federal rules restrict any use of the information to criminally investigate or prosecute any alcohol or drug abuse patient.Premier HealthIn the event this information is protected by the Federal Confidentiality of Alcohol and Drug Abuse Patient Records regulations: The Federal rules restrict any use of the information to criminally investigate or prosecute any alcohol or drug abuse patient.Premier HealthIn the event this information is protected by the Federal Confidentiality of Alcohol and Drug Abuse Patient Records regulations: The Federal rules restrict any use of the information to criminally investigate or prosecute any alcohol or drug abuse patient.Premier HealthIn the event this information is protected by the Federal Confidentiality of Alcohol and Drug Abuse Patient Records regulations: The Federal rules restrict any use of the information to criminally investigate or prosecute any alcohol or drug abuse patient.Premier HealthIn the event this information is protected by the Federal Confidentiality of Alcohol and Drug Abuse Patient Records regulations: The Federal rules restrict any use of the information to criminally investigate or prosecute any alcohol or drug abuse patient.Premier HealthIn the event this information is protected by the Federal Confidentiality of Alcohol and Drug Abuse Patient Records regulations: The Federal rules restrict any use of the information to criminally investigate or prosecute any alcohol or drug abuse patient.Premier HealthIn the event this information is protected by the Federal Confidentiality of Alcohol and Drug Abuse Patient Records regulations: The Federal rules restrict any use of the information to criminally investigate or prosecute any alcohol or drug abuse patient.Premier HealthIn the event this information is protected by the Federal Confidentiality of Alcohol and Drug Abuse Patient Records regulations: The Federal rules restrict any use of the information to criminally investigate or prosecute any alcohol or drug abuse patient.Premier HealthIn the event this information is protected by the Federal Confidentiality of Alcohol and Drug Abuse Patient Records regulations: The Federal rules restrict any use of the information to criminally investigate or prosecute any alcohol or drug abuse patient.Premier HealthIn the event this information is protected by the Federal Confidentiality of Alcohol and Drug Abuse Patient Records regulations: The Federal rules restrict any use of the information to criminally investigate or prosecute any alcohol or drug abuse patient.Premier HealthIn the event this information is protected by the Federal Confidentiality of Alcohol and Drug Abuse Patient Records regulations: The Federal rules restrict any use of the information to criminally investigate or prosecute any alcohol or drug abuse patient.Premier HealthIn the event this information is protected by the Federal Confidentiality of Alcohol and Drug Abuse Patient Records regulations: The Federal rules restrict any use of the information to criminally investigate or prosecute any alcohol or drug abuse patient.Premier HealthIn the event this information is protected by the Federal Confidentiality of Alcohol and Drug Abuse Patient Records regulations: The Federal rules restrict any use of the information to criminally investigate or prosecute any alcohol or drug abuse patient.Premier HealthIn the event this information is protected by the Federal Confidentiality of Alcohol and Drug Abuse Patient Records regulations: The Federal rules restrict any use of the information to criminally investigate or prosecute any alcohol or drug abuse patient.Premier HealthIn the event this information is protected by the Federal Confidentiality of Alcohol and Drug Abuse Patient Records regulations: The Federal rules restrict any use of the information to criminally investigate or prosecute any alcohol or drug abuse patient.Premier HealthIn the event this information is protected by the Federal Confidentiality of Alcohol and Drug Abuse Patient Records regulations: The Federal rules restrict any use of the information to criminally investigate or prosecute any alcohol or drug abuse patient.Premier HealthIn the event this information is protected by the Federal Confidentiality of Alcohol and Drug Abuse Patient Records regulations: The Federal rules restrict any use of the information to criminally investigate or prosecute any alcohol or drug abuse patient.Premier HealthIn the event this information is protected by the Federal Confidentiality of Alcohol and Drug Abuse Patient Records regulations: The Federal rules restrict any use of the information to criminally investigate or prosecute any alcohol or drug abuse patient.Premier HealthIn the event this information is protected by the Federal Confidentiality of Alcohol and Drug Abuse Patient Records regulations: The Federal rules restrict any use of the information to criminally investigate or prosecute any alcohol or drug abuse patient.Premier HealthIn the event this information is protected by the Federal Confidentiality of Alcohol and Drug Abuse Patient Records regulations: The Federal rules restrict any use of the information to criminally investigate or prosecute any alcohol or drug abuse patient.Premier HealthIn the event this information is protected by the Federal Confidentiality of Alcohol and Drug Abuse Patient Records regulations: The Federal rules restrict any use of the information to criminally investigate or prosecute any alcohol or drug abuse patient.Premier HealthIn the event this information is protected by the Federal Confidentiality of Alcohol and Drug Abuse Patient Records regulations: The Federal rules restrict any use of the information to criminally investigate or prosecute any alcohol or drug abuse patient.Premier HealthIn the event this information is protected by the Federal Confidentiality of Alcohol and Drug Abuse Patient Records regulations: The Federal rules restrict any use of the information to criminally investigate or prosecute any alcohol or drug abuse patient.Premier HealthIn the event this information is protected by the Federal Confidentiality of Alcohol and Drug Abuse Patient Records regulations: The Federal rules restrict any use of the information to criminally investigate or prosecute any alcohol or drug abuse patient.Premier HealthIn the event this information is protected by the Federal Confidentiality of Alcohol and Drug Abuse Patient Records regulations: The Federal rules restrict any use of the information to criminally investigate or prosecute any alcohol or drug abuse patient.Premier HealthIn the event this information is protected by the Federal Confidentiality of Alcohol and Drug Abuse Patient Records regulations: The Federal rules restrict any use of the information to criminally investigate or prosecute any alcohol or drug abuse patient.Premier HealthIn the event this information is protected by the Federal Confidentiality of Alcohol and Drug Abuse Patient Records regulations: The Federal rules restrict any use of the information to criminally investigate or prosecute any alcohol or drug abuse patient.Premier HealthIn the event this information is protected by the Federal Confidentiality of Alcohol and Drug Abuse Patient Records regulations: The Federal rules restrict any use of the information to criminally investigate or prosecute any alcohol or drug abuse patient.Premier HealthIn the event this information is protected by the Federal Confidentiality of Alcohol and Drug Abuse Patient Records regulations: The Federal rules restrict any use of the information to criminally investigate or prosecute any alcohol or drug abuse patient.Premier HealthIn the event this information is protected by the Federal Confidentiality of Alcohol and Drug Abuse Patient Records regulations: The Federal rules restrict any use of the information to criminally investigate or prosecute any alcohol or drug abuse patient.Premier HealthIn the event this information is protected by the Federal Confidentiality of Alcohol and Drug Abuse Patient Records regulations: The Federal rules restrict any use of the information to criminally investigate or prosecute any alcohol or drug abuse patient.Premier HealthIn the event this information is protected by the Federal Confidentiality of Alcohol and Drug Abuse Patient Records regulations: The Federal rules restrict any use of the information to criminally investigate or prosecute any alcohol or drug abuse patient.Premier HealthIn the event this information is protected by the Federal Confidentiality of Alcohol and Drug Abuse Patient Records regulations: The Federal rules restrict any use of the information to criminally investigate or prosecute any alcohol or drug abuse patient.Premier HealthIn the event this information is protected by the Federal Confidentiality of Alcohol and Drug Abuse Patient Records regulations: The Federal rules restrict any use of the information to criminally investigate or prosecute any alcohol or drug abuse patient.Premier HealthIn the event this information is protected by the Federal Confidentiality of Alcohol and Drug Abuse Patient Records regulations: The Federal rules restrict any use of the information to criminally investigate or prosecute any alcohol or drug abuse patient.[facility] Goals (unrecognized section and content) Goals may [...] BE BASED ON THE PRIMARY CLINICAL RECORDS. [email or web address] [facility]. provides no warranty or guarantee of the accuracy or completeness of information in this document.
[2024-03-23 15:42] LABS: Lactate Dehydrogenase 79 U/L (81-234)
[2024-03-24 04:08] LABS: AFP, Serum, Tumor Marker 2.3 ng/mL (0.0-6.4); CEA 1.1 ng/mL (0.0-4.7); Cancer Antigen (CA) 125 5.7 U/mL (0.0-38.1); HCG Tumor Marker <1 mIU/mL (.)
== END 2024-03-23 13:58 | disposition home or self-care (01) ==
LOC: LAB 13:59
PROVIDERS: PCP Nurse Practitioner Family; Visit Provider Obstetrics & Gynecology
DX: N83.299 Other ovarian cyst, unspecified side (principal)
CPT/HCPCS: 36415; 82105; 82378; 83615; 84702; 86304

== ENCOUNTER 2024-03-26 15:43 | Emergency (ER) | payer MEDICAID, SELFPAY ==
[2024-03-26] VITALS (15 sets, daily range): BP systolic 114–145; BP diastolic 67–72; PULSE 76–87; TEMP 36.6; O2SAT 93–97; BMI 63.3
--- OUTSIDE RECORDS SUMMARY | 2024-03-26 15:50 | XMS_ITS | CCD ---
Author Organization [facility] Care Team Providers Care Lathe Winder Name Role Phone GENEVA ESTRADA Unavailable Unavailable [...] Unavailable Rupinder Blakely Unavailable Estella Nguyen Unavailable Bmabi Gonzalez Unavailable Christa Tyler Unavailable LucasGeneva mauro CNP Primary Care Provider Rob Garcia Unavailable LucasGeneva mauro CNP Primary Care Provider NON STAFF Primary Care Provider UnavailROBERT Jo Attending Provider [phone] Elizabet Siemntal Primary Care Provider Kaylin Simentalty Primary Care Provider ARMANDOC, DR JAVED Attending Unavailable MISC, DR JAVED Admitting Unavailable [facility] [place] Care Unavailable MISC, DR JAVED Attending Unavailable MISC, DR JAVED Consulting Unavailable MISC, DR JAVED Admitting Unavailable [facility] [place] Primary Care Unavailable WEST, DR ESTELLA Steiner Consulting Unavailable REQUEST, DR GUTIÉRREZ LISTED Admitting Unavaila ble REQUEST, DR GUTIÉRREZ LISTED Attending Unavaila ble [facility] [place] Primary Care Unavailable MISC, DR JAVED Consulting Unavailable MISC, DR JAVED Consulting Unavailable MISC, DR JAVED Admitting Unavailable [facility] [place] Primary Care Unavailable MISC, DR JAVED Attending Unavailable Darrel Nichols Consulting Unavailable RUMSCHLAG, ELIZABET Consulting Unavailable MISC, DR JAVED Attending Unavailable MISC, DR JAVED Admitting Unavailable [facility] [place] Primary Care Unavailable HAY ., DR STEPHENS Admitting Unavailable HAY ., DR STEPHENS Attending Unavailable [facility] [place] Primary Care Unavailable LAYNECHNANETTE ., MICHELLE MCGINNIS Consulting Unavailabl e ESTELLA ALVES Consulting Unavailable LAYNECHNANETTE ., MICHELLE MCGINNIS Consulting Unavailabl e BERENICE BAKER Admitting Unavailable [facility] [place] Primary Care Unavailable BERENICE BAKER Attending Unavailable MANPREET TORRES Consulting Unavailable JARON FABIAN Admitting Unavailable DENYS ., MR AGUILAR Consulting Unavailable JARON FABIAN Attending Unavailable [facility] [place] Primary Care Unavailable Linda South Unavailable Christa [...] OTILIO LEON Referring Unavailable SERVICES, [facility] Primary Care Unava ilable OTILIO LEON Referring Unavailable SERVICES, [facility] Primary Care Unava ilable OTILIO LEON Attending Unavailable CAROLYN, OTILIO Naqvi Referring Unavailable SERVICES, [facility] Unava ilable CAROLYN, OTILIO Naqvi Admitting Unavailable CAROLYN, OTILIO Naqvi Attending Unavailable CAROLYN, OTILIO Naqvi Referring Unavailable SERVICES, [facility] Unava ilable YOSHI DELGADO Attending Unavailable SERVICES, [facility] Unava ilable CAROLYN, OTILIO Naqvi Admitting Unavailable CAROLYN, OTILIO Naqvi Attending Unavailable CAROLYN, OTILIO Naqvi Referring Unavailable SERVICES, [facility] Unava ilable YOSHI DELGADO Attending Unavailable SERVICES, [facility] Unava ilable CHERRI, KIKO Attending Unavailable CHERRI, [...] to adverse reactions to drug 10-11-19 17 [place], [place] (6 sources) Penicillins; Translations: [PENICILLINS] Propensity to adverse reactions to drug 05-29-20 17 Hives, [place], [place] (14 sources) traMADol; Translations: [Ultram TABS] Drug Allergy 08-28-19 13 Hives, [place], [place] (20 sources) Amoxicillin-Pot Clavulanate; Translations: [AMOXICILLIN-POT CLAVULANATE] Propensity to adverse reactions to drug 10-11-19 17 Diarrhea, Other (See Comments) [place], [place] (20 sources) Cephalexin; Translations: [CEPHALEXIN] Drug Allergy 05-06-20 19 Rash, Itching [facility] (1 source) *Adhesive Tape Propensity to adverse reactions 11-10-19 07 [facility] (7 sources) Penicillins Drug Allergy 05-06-20 19 Hives [facility] (20 sources) traMADol; Translations: [TRAMADOL HCL] Drug Allergy 03-13-20 15 Itching [facility] (20 sources) Adhes. Yaca-Eklq-Rwheyfp onium; Translations: [ADHES. JOFK-QPAX-QAMPOEW ONIUM] Drug Allergy 03-13-20 15 [facility] (20 sources) Adhesive Tape-Silicones; Translations: [ADHESIVE TAPE-SILICONES] Drug Allergy 05-06-20 19 [facility] (9 sources) Amoxicillin / Clavulanate; Translations: [Augmentin TABS] Drug Allergy stomach upset GT-HXFKE-Qbjomd r 206A [facility] Work Phone: (1 source) Cephalexin; Translations: [Keflex TABS] Drug Allergy LA-CQWTC-Dcyekm r 206A IV[facility] Work Phone: (1 source) Penicillins; Translations: [Penicillins] Allergy to drug (finding) BH-YASAN-Fbgdtt r 206A IV[facility] Work Phone: (11 sources) Adhesive agent; Translations: [Adhesive] Propensity to adverse reactions 11-10-19 07 rash,blisterin g, [facility] (8 sources) Cephalexin; Translations: [Keflex] Drug Allergy itchy [facility] (9 sources) Doxycycline Drug Allergy stomach upset [facility] Other (9 sources) penicillAMINE Drug Allergy rash [facility] Other (9 sources) Penicillin G Drug Allergy Unknown [facility] Other (20 sources) Penicillins Drug Allergy 05-06-20 19 [facility] (2 sources) Amoxicillin / Clavulanate Drug Allergy 12-18-19 17 stomach upset [facility] (1 source) Penicillins Drug allergy (disorder) [facility] (1 source) traMADol Drug Allergy 08-28-19 13 [facility] Medications Current Medications Medication Drug [...] as needed. Take 2 tablets by mo [facility] every 6 hours for 4 days. [...] Citrate Active take 2 tablets by mo [facility] once daily, then take 1 tablet [...] mg docusate sodium 50 mg / sennosides, alf 8.6 mg oral tablet (11 sources) Start: [...] unless otherwise advised. [facility]. DULoxetine 60 mg delayed release oral capsule (20 sources) Serotonin and Norepinephrine Reuptake Inhibitor Start: take 1 capsule by mouth twice daily DULoxetine [address] Particles capsule DR Take 60 mg by mouth 2 times daily. 0 04/25/2021 Active Start: 07-27-2019 take 1 capsule by mo [facility] once daily DULoxetine (CYMBALTA) 60 MG [...] therapy completed) take 1 capsule by mo [facility] every twenty-four hours Vistaril 25 MG [...] 100 mg by mouth every morning. levonorgestrel 0.736229 mg/hr intrauterine system (19 sources) Progestin, Progestin-containing [...] 0 07/20/2023 10/18/2023 Active Start: 03-03-2023 omeprazole (AK ILOSEC) 40 mg capsule TAKE 1 CAPSULE BY MOUTH 30 MINUTES BEFORE morning meal 0 03/03/2023 Active Comment on above: TAKE 1 CAPSULE BY MO [facility] 30 MINUTES BEFORE morning meal Take 1 capsule by mo [facility] two times a day. Take 1 capsule by mo [facility] once daily. ondansetron 4 mg disintegrating [...] needed for nausea/vomiting. 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; Translations: [OTH ASSISTED CURRENT DRUG THERAPY] Onset: 3 Episodic Other [...] test) Ql (U) Negative Normal NEG [facility] Comment on above: Performed By: #### 2106-3 #### [facility] ([id number]) [address] [place] [address], [place] [address] VITAMIN John 11-27-2023 VITAMIN K 0.75 nmol/L Normal 0.22-4.88 [facility] Comment on above: Order Comment: Specimen Type: BLOOD SPEC IMENOrdering Facility: [facility] Address: [address] [place], [place] [address] Result Comment: INTE RPRETIVE INFORMATION: Vitamin K1, Serum Vitamin K concentration is reported as nanomoles per liter (nmol/L). To convert concentration to nanograms per milliliter (ng/mL), multiply the result by 0.45. This test was developed and its performance characteristics determined by [facility]. It has not been cleared or approved by the US Food and Drug Administration. This test was performed in a CLIA certified laboratory and is intended for clinical purposes. Performed By: [facility] [address] [place] [address] Cloth Opener Hand: John Newsome MD, PhD CLIA Number: [id number] Performed By: #### V ITK ####[facility] [id number] [place] [address] HCG ( test) Ql (U)o n 11-04-2023 Beta HCG ( test) Ql (U) Negative Normal NEG [facility] Comment on above: Performed By: #### 2106-3 #### [facility] ([id number]) [address] [place] [address], [place] [address] 25(OH)D3 [facility] 25-hydroxyvitami n D3 [Mass/Vol] 29.3 ng/mL Low 31.0-80.0 [facility] Comment on above: Order Comment: Specimen Type: BLOOD SPEC IMEN [facility] Address: [address] [place] [address] Performed By: #### 2 284-8, 2731-8, 2132-9 #### [facility] CLIA [id number] [address] [place] [address] [id number], [place] [address] [place] A-Tocopherol Vit E SerPl-mCn con 10-28-2023 Alpha tocopherol [Mass/Vol] 7.0 mg/L Normal 6.0-23.0 [facility] Comment on above: Order Comment: Specimen Type: BLOOD SPEC IMENOrdering Facility: [facility] Address: [address] [place] [address] Performed By: #### 2 923-1, 182- ####[facility]IA [id number] [place] [address] [place] Alpha tocopherol [Mass/Vol]o n 10-28-2023 Beta+gamma tocopherol [Mass/Vol] 0.7 mg/L Normal 0.3-3.2 [facility] Comment on above: Order Comment: Specimen Type: BLOOD SPEC IMENOrdering Facility: [facility] Address: [address] [place] [address] Result Comment: This test was developed and its performance characteristics determined by [facility] Medicine [place] ([facility]). It has not been cleared or approved by the FDA. [facility] is regulated under CLIA as qualified to perform high-complexity testing. This test is used for clinical purposes. It should not be regarded as investigational or for research. Performed By: #### 2 923-1, 1822-09 ####[facility] [id number] [address] [place] CBC panel Auto (Bld)on 10-27 Erythrocyte distribution width (RBC) [Ratio] 14.3 % Normal 11.5-15.0 [facility] Comment on above: Order Comment: Specimen Type: BLOOD SPEC IMENOrdering Facility: [facility] Address: [address] [place] [address] Performed By: #### 5 8410-2 ####[facility] LABCLIA [id number] [place] [address] Hematocrit (Bld) [Volume fraction] 43.5 % Normal 36.0-46.0 [facility] Comment on above: Order Comment: Specimen Type: BLOOD SPEC IMENOrdering Facility: [facility] Address: [address] [place] [address] Performed By: #### 5 8410-2 ####[facility] LABCLIA [id number] [place] [address] Hemoglobin (Bld) [Mass/Vol] 13.6 g/dL Normal 11.5-15.5 [facility] Comment on above: Order Comment: Specimen Type: BLOOD SPEC IMENOrdering Facility: [facility] Address: [address] [place] [address] Performed By: #### 5 8410-2 ####[facility] LABCLIA [id number] [place] [address] MCH (RBC) [Entitic mass] 27.5 pg Normal 26.0-34.0 [facility] Comment on above: Order Comment: Specimen Type: BLOOD SPEC IMENOrdering Facility: [facility] Address: [address] [place] [address] Performed By: #### 5 8410-2 ####[facility] LABIA [id number] [place] [address] MCHC (RBC) [Mass/Vol] 31.3 g/dL Normal 30.5-36.0 [facility] Comment on above: Order Comment: Specimen Type: BLOOD SPEC IMENOrdering Facility: [facility] Address: [address] [place] [address] Performed By: #### 5 8410-2 ####[facility] LABIA [id number] [place] [address] MCV (RBC) [Entitic vol] 88.1 fL Normal 80.0-100.0 [facility] Comment on above: Order Comment: Specimen Type: BLOOD SPEC IMENOrdering Facility: [facility] Address: [address] [place] [address] Performed By: #### 5 8410-2 ####[facility] LABIA [id number] [place] [address] Nucleated RBC (Bld) [#/Vol] 10*3/uL Normal <0.01 [facility] Comment on above: Order Comment: Specimen Type: BLOOD SPEC IMENOrdering Facility: [facility] Address: [address] [place] [address] Performed By: #### 5 8410-2 ####[facility] LABCLIA [id number] [place] [address] Platelet mean volume (Bld) [Entitic vol] 8.8 fL Low 9.0-12.7 [facility] Comment on above: Order Comment: Specimen Type: BLOOD SPEC IMENOrdering Facility: [facility] Address: [address] [place] [address] Performed By: #### 5 8410-2 ####[facility] LABCLIA [id number] [place] [address] Platelets (Bld) [#/Vol] 722 10*3/uL High 150-400 [facility] Comment on above: Order Comment: Specimen Type: BLOOD SPEC IMENOrdering Facility: [facility] Address: [address] [place] [address] Performed By: #### 5 8410-2 ####[facility] LABCLIA [id number] [place] [address] RBC (Bld) [#/Vol] 4.94 10*6/uL Normal 3.90-5.20 [facility] Comment on above: Order Comment: Specimen Type: BLOOD SPEC IMENOrdering Facility: [facility] Address: [address] [place] [address] Performed By: #### 5 8410-2 ####[facility] LABIA [id number] [place] [address] WBC (Bld) [#/Vol] 14.70 10*3/uL High 3.70-11.00 [facility] Comment on above: Order Comment: Specimen Type: BLOOD SPEC IMENOrdering Facility: [facility] Address: [address] [place] [address] Performed By: #### 5 8410-2 ####[facility] LABCLIA [id number] [place] [address] Comprehensive metabolic 2000 panelon 10-28-2023 Albumin [Mass/Vol] 4.2 g/dL Normal 3.9-4.9 [facility] Comment on above: Order Comment: Specimen Type: BLOOD SPEC IMEN [facility] Address: [address] [place] [address] Performed By: #### 2 284-8, 2730-8, 2132-02 #### [facility] CLIA [id number] [address] [place] [address] [place] ALP [Catalytic activity/Vol] 137 U/L High 34-123 [facility] Comment on above: Order Comment: Specimen Type: BLOOD SPEC IMEN [facility] Address: [address] [place] [address] Performed By: #### 2 284-8, 2730-8, 2132-02 #### [facility] CLIA [id number] [address] [place] [address] [place] ALT [Catalytic activity/Vol] 37 U/L Normal 7-38 [facility] Comment on above: Order Comment: Specimen Type: BLOOD SPEC IMEN [facility] Address: [address] [place] [address] Performed By: #### 2 284-8, 8, 2132-02 #### [facility] CLIA [id number] [address] [place], [place] [address] [place] Anion gap [Moles/Vol] 10 mmol/L Normal 9-18 [facility] Comment on above: Order Comment: Specimen Type: BLOOD SPEC IMEN [facility] Address: [address] [place] [address] Performed By: #### 2 284-8, 273-8, 2132-02 #### [facility] CLIA [id number] [address] [place] [address] [place] AST [Catalytic activity/Vol] 25 U/L Normal 13-35 [facility] Comment on above: Order Comment: Specimen Type: BLOOD SPEC IMEN [facility] Address: [address] [place] [address] Performed By: #### 2 284-8, 1-8, 2132-02 #### [facility] CLIA [id number] [address] [place] [address] [place] Bilirubin [Mass/Vol] mg/dL Low 0.2-1.3 [facility] Comment on above: Order Comment: Specimen Type: BLOOD SPEC IMEN [facility] Address: [address] [place] [address] Performed By: #### 2 284-8, 8, 2132-02 #### [facility] CLIA [id number] [address] [place] [address] [place] Calcium [Mass/Vol] 9.5 mg/dL Normal 8.5-10.2 [facility] Comment on above: Order Comment: Specimen Type: BLOOD SPEC IMEN [facility] Address: [address] [place] [address] Performed By: #### 2 284-8, 2730-8, 2132-02 #### [facility] CLIA [id number] [address] [place] [address] [place] Chloride [Moles/Vol] 101 mmol/L Normal 97-105 [facility] Comment on above: Order Comment: Specimen Type: BLOOD SPEC IMEN [facility] Address: [address] [place] [address] Performed By: #### 2 284-8, 2731-8, 2132-02 #### [facility] CLIA [id number] [address] [place] [address] [place] CO2 [Moles/Vol] 26 mmol/L Normal 22-30 [facility] Comment on above: Order Comment: Specimen Type: BLOOD SPEC IMEN [facility] Address: [address] [place] [address] Performed By: #### 2 284-8, 1-8, 2132-02 #### [facility] CLIA [id number] [address] [place] [address] [place] Creatinine [Mass/Vol] 0.76 mg/dL Normal 0.58-0.96 [facility] Comment on above: Order Comment: Specimen Type: BLOOD SPEC IMEN [facility] Address: [address] [place] [address] Performed By: #### 2 284-8, 2730-8, 2132-02 #### [facility] CLIA [id number] [address] [place] [address] [place] Creatinine and Glomerular filtration rate.predicted panel (S/P/Bld) 103 mL/min/1.73m??? Normal >=60 [facility] Comment on above: Order Comment: Specimen Type: BLOOD SPEC IMEN [facility] Address: [address] [place] [address] Result Comment: Janet mated Glomerular Filtration Rate [...] By: #### 2 284-8, 2730-8, 2132-02 #### [facility] CLIA [id number] [address] [place] [address] [place] Glucose [Mass/Vol] 155 mg/dL High 74-99 [facility] Comment on above: Order Comment: Specimen Type: BLOOD SPEC IMEN [facility] Address: [address] [id number] Result Comment: The [place] Diabetes Association (ADA) provides guidance for cutoff [...] Standards of Medical Care in Diabetes 2016, [place] [employer] Association. Diabetes Care. 2016.39(Suppl 1). Performed By: #### 2 284-8, 2731-01, 2132-02 #### [facility] CLIA [id number] [address] [place] [address] [place] Potassium [Moles/Vol] 3.7 mmol/L Normal 3.7-5.1 [facility] Comment on above: Order Comment: Specimen Type: BLOOD SPEC IMEN [facility] Address: [address] [place] [address] Performed By: #### 2 284-8, 2731-01, 2132-02 #### [facility] CLIA [id number] [address] [place] [address] [place] Protein [Mass/Vol] 7.9 g/dL Normal 6.3-8.0 [facility] Comment on above: Order Comment: Specimen Type: BLOOD SPEC IMEN [facility] Address: [address] [place] [address] Performed By: #### 2 284-8, 2731-01, 2132-02 #### [facility] CLIA [id number] [address] [place] [address] [place] Sodium [Moles/Vol] 137 mmol/L Normal 136-144 [facility] Comment on above: Order Comment: Specimen Type: BLOOD SPEC IMEN [facility] Address: [address] [place] [address] Performed By: #### 2 284-8, 2731-8, 9 #### [facility] CLIA [id number] [address] [place] [address] [place] Urea nitrogen [Mass/Vol] 11 mg/dL Normal 7-21 [facility] Comment on above: Order Comment: Specimen Type: BLOOD SPEC IMEN [facility] Address: [address] [place] [address] Performed By: #### 2 284-8, 2731-8, 9 #### [facility] CLIA [id number] [address] [place] [address] [place] Ferritin SerPl-mCncon 2023 Ferritin [Mass/Vol] 50.4 ng/mL Normal 14.7-205.1 [facility] Comment on above: Order Comment: Specimen Type: BLOOD SPEC IMENOrdering Facility: [facility] Address: [address] [place] [address] Performed By: #### 2 276-4, 94653-0 ####[facility]IA [id number] [place] [address] [place] Folate SerPl-mCncon 10-28-19 Folate [Mass/Vol] 15.7 ng/mL Normal >4.7 [facility] Comment on above: Order Comment: Specimen Type: BLOOD SPEC IMEN [facility] Address: [address] [place] [address] Performed By: #### 2 284-8, 2731-8, 2131-9 #### [facility] CLIA [id number] [address] [place] [address] [place] HbA1c (Bld)on 10-28-2023 Average glucose Estimated from glycated hemoglobin (Bld) [Mass/Vol] 128 mg/dL Normal [facility] Comment on above: Order Comment: Specimen Type: BLOOD SPEC IMEN [facility] Address: [address] [place] [address] Result Comment: eAG: (Estimated average glucose) is a calculated value from HgbA1c and is claims customer service representative of the average blood glucose level in the last 2-3 month period. Performed By: #### 5 5454-3 #### [facility] CLIA [id number] [address] [place] [address] [place] HbA1c (Bld) [Mass fraction] 6.1 % High 4.3-5.6 [facility] Comment on above: Order Comment: Specimen Type: BLOOD SPEC IMEN [facility] Address: [address] [place] [address] Result Comment: [place] Diabetes Association guidelines indicate that patients with HgbA1c in the range 5.7-6.4% are at increased risk for development of diabetes, and intervention by lifestyle modification may be beneficial. HgbA1c greater or equal to 6.5% is considered diagnostic of diabetes. Performed By: #### 5 5454-3 #### [facility] CLIA [id number] [address] [place] [address] [place] Iron and Iron binding capaci ty panelon 10-28-2023 Iron [Mass/Vol] 29 ug/dL Low 41-186 [facility] Comment on above: Order Comment: Specimen Type: BLOOD SPEC IMENOrdering Facility: [facility] Address: [address] [place] [address] Performed By: #### 2 276-4, 62231-6 ####[facility] LABCLIA [id number] [place] [address] [place] Iron binding capacity [Mass/Vol] 369 ug/dL Normal 232-386 [facility] Comment on above: Order Comment: Specimen Type: BLOOD SPEC IMENOrdering Facility: [facility] Address: [address] [place] [address] Performed By: #### 2 276-4, 48821-4 ####[facility] LABCLIA [id number] [place] [address] [place] Iron/TIBC [Molar ratio] 7.9 % Low 15.0-57.0 [facility] Comment on above: Order Comment: Specimen Type: BLOOD SPEC IMENOrdering Facility: [facility] Address: [address] [place] [address] Performed By: #### 2 276-4, 18686-0 ####[facility] LABCLIA [id number] [place] [address] [place] PTH-Intact SerPl-mCncon 05-0 Parathyrin.intac t [Mass/Vol] 60 pg/mL Normal 15-65 [facility] Comment on above: Order Comment: Specimen Type: BLOOD SPEC IMEN [facility] Address: [address] [place] [address] Performed By: #### 2 284-8, 2731-8, 2132-9 #### [facility] CLIA [id number] [address] [place] [address] [place] VITAMIN B1 (THIAMINE), WHOLE BLOODon 10-28-2023 Thiamine (Bld) [Moles/Vol] 289.8 nmol/L High 84.3-213.3 [facility] Comment on above: Order Comment: Specimen Type: BLOOD SPEC IMENOrdering Facility: [facility] Address: [address] [place] [address] Result Comment: This assay measures the concentration of thiamine diphosphate (TDP), the primary active form of vitamin B1. Approximately 90 percent of vitamin B1 present in whole blood is TDP. Thiamine and thiamine monophosphate, which comprise the remaining 10 percent, are not measured. This test was developed and its performance characteristics determined by [facility]'s Gennaro Bee [facility] [place] ([facility]). It has not been cleared or approved by the FDA. -[facility] is regulated under CLIA as qualified to perform high-complexity testing. This test is used for clinical purposes. It should not be regarded as investigational or for research. Performed By: #### B 1WB ####[facility] LABCLIA [id number] [place] [address] [place] VITAMIN John 10-28-2023 VITAMIN K 6.74 nmol/L High 0.22-4.88 [facility] Comment on above: Order Comment: Specimen Type: BLOOD SPEC IMEN [facility] Address: [address] [place] [address] Result Comment: Elevated vitamin K concentration may be associated with increased lipid concentration. INTERPRETIVE INFORMATION: Vitamin K1, Serum Vitamin K concentration is reported as nanomoles per liter (nmol/L). To convert concentration to nanograms per milliliter (ng/mL), multiply the result by 0.45. This test was developed and its performance characteristics determined by [facility]. It has not been cleared or approved by the [place] Food and Drug Administration. This test was performed in a CLIA certified laboratory and is intended for clinical purposes. Performed By: [facility] [address] [place] [address] Cloth Opener Hand: John Newsome MD, PhD CLIA Number: [id number] Performed By: #### 2 284-8, 2731-8, 2132-9 #### [facility] CLIA [id number] [address] [place] [address] [place] Vit A SerPl-mCncon 4 Retinol [Mass/Vol] 0.37 mg/L Normal 0.30-1.20 [facility] Comment on above: Order Comment: Specimen Type: BLOOD SPEC IMENOrdering Facility: [facility] Address: [address] [place] [address] Result Comment: This test was developed and its performance characteristics determined by [facility] [place] ([facility]). It has not been cleared or approved by the FDA. -[facility] is regulated under CLIA as qualified to perform high-complexity testing. This test is used for clinical purposes. It should not be regarded as investigational or for research. Performed By: #### 2 923-1, 1823-4 ####[facility] LABCLIA [id number] [place] [address] [place] Vit B12 SerPl-[facility] 024 Cobalamin (Vitamin B12) [Mass/Vol] 817 pg/mL Normal 232-1245 [facility] Comment on above: Order Comment: Specimen Type: BLOOD SPEC IMEN [facility] Address: [address] [place] [address] Performed By: #### 2 284-8, 2730-8, 2132-02 #### [facility] CLIA [id number] [address] [place] [address] [place] Zinc [facility]on [facility]-2023 Zinc [Mass/Vol] 45 ug/dL Low 60-120 [facility] Comment on above: Order Comment: Specimen Type: BLOOD SPEC IMEN [facility] Address: [address] [place] [address] Result Comment: This test was developed and its performance characteristics determined by [facility] Gennaro JTanya [facility] [place] ([facility]). It has not been cleared or approved by the FDA. [facility] is regulated under CLIA as qualified to perform high-complexity testing. This test is used for clinical purposes. It should not be regarded as investigational or for research. Performed By: #### 2 284-8, 273-8, 2132-02 #### [facility] CLIA [id number] [address] [place] [address] [place] BASIC METABOLIC PANLon 10-19 Anion gap [Moles/Vol] 12 mmol/L Normal 5-15 [facility] Comment on above: Performed By: #### BMP #### [facility] ([id number]) [address], [address] [place] [address] Calcium [Mass/Vol] 9.7 mg/dL Normal 8.5-10.5 [facility] Comment on above: Performed By: #### BMP #### [facility] ([id number]) [address], [address] [place] [address] Chloride [Moles/Vol] 100 mmol/L Normal 98-109 [facility] Comment on above: Performed By: #### BMP #### [facility] ([id number]) [address], [address] [place] [address] CO2 [Moles/Vol] 25 mmol/L Normal 22-32 [facility] Comment on above: Performed By: #### BMP #### [facility] ([id number]) [address], [address] [place] [address] Creatinine [Mass/Vol] 0.72 mg/dL Normal 0.40-1.00 [facility] Comment on above: Result Comment: METHOD TRACEABLE TO IDMS STANDARD Performed By: #### B MP #### [facility] ([id number]) [address], [address] [place] [address] eGFR (CKD-EPI) NON-RACE DEPENDENT >90 Normal >59 [facility] Comment on above: Result Comment: Reported eGFR is based on the CKD-EPI 2020 equation that does not use a race coefficient. Performed By: #### B MP #### [facility] ([id number]) [address], [address] [place] [address] Glucose [Mass/Vol] 89 mg/dL Normal 65-99 [facility] Comment on above: Performed By: #### BMP #### [facility] ([id number]) [address], [address] [place] [address] Potassium [Moles/Vol] 4.0 mmol/L Normal 3.5-5.0 [facility] Comment on above: Performed By: #### BMP #### [facility] ([id number]) [address], [address] [place] [address] Sodium [Moles/Vol] 137 mmol/L Normal 134-146 [facility] Comment on above: Performed By: #### BMP #### [facility] ([id number]) [address] [place] [address], [address] [place] [address] Urea nitrogen [Mass/Vol] 18 mg/dL Normal 5-23 [facility] Comment on above: Performed By: #### BMP #### [facility] ([id number]) [address], [address] [place] [address] CNOVon 09-07-2023 CNOV Office Visit (BMINO) SUSI ORTIZ ([id number]) 1985 F FNS Date Time Provider Department [...] loss: 6.128 kg (13 lb 8.2 oz) [place] weight: 66.1 kg (145 lb 10.6 oz) [...] Orders FOLLOW UP: as scheduled Jayshree Huffman APRN.SEED TRUCKER Referring Provider: JOE GRANDA [[id number]] Allergies As of Date: 09/07/2023 Noted Allergy Reaction AD (more content not included)... Normal [facility] ANES POSTPROC EVALon 024 ANES POSTPROC EVAL HNO ID: [id number] Author: AMANDA ALCANTAR DO Service: Anesthesiology Author [...] August 17, 2023 TIME: 11:37 AM CSN: [id number] [facility] CNOVon 08-17-2023 CNOV Office Visit (BMIREJ ) SUSI ORTIZ ([id number]) 1985 F FNS Date Time Provider Department [...] loss: 8.2 kg (18 lb 1.2 oz) [place] weight: 66.1 kg (145 lb 10.6 oz) [...] advance diet (more content not included)... Normal [facility] 08-13-2023 CNPN Telephone (GENBMI) SUSI ORTIZ ([id number]) 1985 F FNS Date Time Provider Department [...] appt. Reminded patient of how to reach [facility] or their surgeons office. Patient reminded to seek medical attention if they develop chest pain, a sudden onset of shortness of breath or persistent pain in the calf of their legs - BEST TO ALWAYS present to [facility] hospital where you had your surgery Patient verbalized understanding of all advice and instructions given. Niki Peterson RN Allergies As of Date: 08/13/2023 Noted Allergy Reaction ADHES. [id number] 03/13/2015 2 - Rash ADHESIVE TAPE-SILICONES 05/06/2019 [...] affective dis (more content not included)... Normal [facility] Basic metabolic 2000 panelon 08-11-2023 Anion gap [Moles/Vol] 13 mmol/L Normal 9-18 [facility] Comment on above: Order Comment: Specimen Type: BLOOD SPEC IMENOrdering Facility: [facility] Address: [address] [place] [address] Performed By: #### 1 9123-9, 2777-, 67121-6 ####[facility] [id number] [place] [id number] [place] Calcium [Mass/Vol] 8.8 mg/dL Normal 8.5-10.2 [facility] Comment on above: Order Comment: Specimen Type: BLOOD SPEC IMENOrdering Facility: [facility] Address: [address] [place] [address] Performed By: #### 1 9123-9, 2777-, 87549-5 ####[facility]ORYCLIA [id number] [place] [id number] [place] Chloride [Moles/Vol] 105 mmol/L Normal 97-105 [facility] Comment on above: Order Comment: Specimen Type: BLOOD SPEC IMENOrdering Facility: [facility] Address: [address] [place] [address] Performed By: #### 1 9123-9, 2777, 48550-6 ####[facility]ORYCLIA [id number] [place] [id number] [place] CO2 [Moles/Vol] 20 mmol/L Low 22-30 [facility] Comment on above: Order Comment: Specimen Type: BLOOD SPEC IMENOrdering Facility: [facility] Address: [facility] [place] [address] Performed By: #### 1 9123-9, 2777-1, 23509-2 ####[facility]ORYCLIA [id number] [place] [id number] [place] Creatinine [Mass/Vol] 0.57 mg/dL Low 0.58-0.96 [facility] Comment on above: Order Comment: Specimen Type: BLOOD SPEC IMENOrdering Facility: [facility] Address: [address] [place] [address] Performed By: #### 1 9123-9, 2777-1, 04315-6 ####[facility]ATORYCLIA [id number] [place] [id number] [facility] Creatinine and Glomerular filtration rate.predicted panel (S/P/Bld) 119 mL/min/1.73m??? Normal >=60 [facility] Comment on above: Order Comment: Specimen Type: BLOOD SPEC IMENOrdering Facility: [facility] Address: [address] [place] [address] Result Comment: Janet mated Glomerular Filtration Rate [...] GFR. Performed By: #### 1 9123-9, 2777-1, 87721-1 ####[facility]ORYCLIA [id number] [place] [id number] [place] Glucose [Mass/Vol] 92 mg/dL Normal 74-99 [facility] Comment on above: Order Comment: Specimen Type: BLOOD SPEC IMENOrdering Facility: [facility] Address: [address] [place] [address] Result Comment: The [place] [employer] (ADA) provides guidance for cutoff [...] Standards of Medical Care in Diabetes 2016, [place] [employer]. Diabetes Care. 2016.39(Suppl 1). Performed By: #### 1 9123-9, 2777-, 99999-2 ####[facility]ORY[facility] [id number] [place] [id number] [place] Potassium [Moles/Vol] 4.2 mmol/L Normal 3.7-5.1 [facility] Comment on above: Order Comment: Specimen Type: BLOOD SPEC IMENOrdering Facility: [facility] Address: [address] [place] [address] Performed By: #### 1 9123-9, 27712-27, 04634-2 ####[facility] LABORATORYCLIA [id number] [place] [id number] [place] Sodium [Moles/Vol] 138 mmol/L Normal 136-144 [facility] Comment on above: Order Comment: Specimen Type: BLOOD SPEC IMENOrdering Facility: [facility] Address: [address] [place] [address] Performed By: #### 1 9123-9, 27712-27, 92953-2 ####[facility] LABORATORYCLIA [id number] [place] [id number] [place] Urea nitrogen [Mass/Vol] 3 mg/dL Low 7-21 [facility] Comment on above: Order Comment: Specimen Type: BLOOD SPEC IMENOrdering Facility: [facility] Address: [address] [place] [address] Performed By: #### 1 9123-9, 2777, 09786-1 ####[facility] LABORATORYCLIA [id number] [place] [id number] [place] CBC W Auto Differential pane l (Bld)on 08-11-2023 Basophils (Bld) [#/Vol] 0.00 10*3/uL Normal <0.11 [facility] Comment on above: Order Comment: Specimen Type: BLOOD SPEC IMENOrdering Facility: [facility] Address: [address] [place] [address] Performed By: #### 5 7021-8 ####[facility] LABORATORYCLIA [id number] [address] [place] Basophils/100 WBC (Bld) 0.0 % Normal [facility] Comment on above: Order Comment: Specimen Type: BLOOD SPEC IMENOrdering Facility: [facility] Address: [address] [place] [address] Performed By: #### 5 7021-8 ####[facility]ORYCL[facility] [id number] [address] [place] Differential cell count method Nom (Bld) Manual Normal [facility] Comment on above: Order Comment: Specimen Type: BLOOD SPEC IMENOrdering Facility: [facility] Address: [address] [place] [address] Performed By: #### 5 7021-8 ####[facility] LABORATORYCLIA [id number] [place] [address] [place] Eosinophils (Bld) [#/Vol] 0.62 10*3/uL High <0.46 [facility] Comment on above: Order Comment: Specimen Type: BLOOD SPEC IMENOrdering Facility: [facility] Address: [address] [place] [address] Performed By: #### 5 7021-8 ####[facility] LABORATORYCLIA [id number] [address] Eosinophils/100 WBC (Bld) 4.0 % Normal [facility] Comment on above: Order Comment: Specimen Type: BLOOD SPEC IMENOrdering Facility: [facility] Address: [address] [place] [address] Performed By: #### 5 7021-8 ####[facility]ORYCLIA [id number] [place] [id number] [place] Erythrocyte distribution width (RBC) [Ratio] 14.8 % Normal 11.5-15.0 [facility] Comment on above: Order Comment: Specimen Type: BLOOD SPEC IMENOrdering Facility: [facility] Address: [address] [place] [address] Performed By: #### 5 7021-8 ####[facility]ORYCLIA [id number] [place] [id number] [place] Hematocrit (Bld) [Volume fraction] 36.9 % Normal 36.0-46.0 [facility] Comment on above: Order Comment: Specimen Type: BLOOD SPEC IMENOrdering Facility: [facility] Address: [address] [place] [address] Performed By: #### 5 7021-8 ####[facility] LABORATORYCLIA [id number] [place] [id number] [place] Hemoglobin (Bld) [Mass/Vol] 11.8 g/dL Normal 11.5-15.5 [facility] Comment on above: Order Comment: Specimen Type: BLOOD SPEC IMENOrdering Facility: [facility] Address: [address] [place] [address] Performed By: #### 5 7021-8 ####[facility]ATORYCLIA [id number] [place] [address] [place] Lymphocytes (Bld) [#/Vol] 3.59 10*3/uL Normal 1.00-4.00 [facility] Comment on above: Order Comment: Specimen Type: BLOOD SPEC IMENOrdering Facility: [facility] Address: [address] [place] [address] Performed By: #### 5 7021-8 ####[facility]ORYCLIA [id number] [place] [id number] [place] Lymphocytes/100 WBC (Bld) 22.0 % Normal [facility] Comment on above: Order Comment: Specimen Type: BLOOD SPEC IMENOrdering Facility: [facility] Address: [address] [place] [address] Performed By: #### 5 7021-8 ####[facility]ATORYCLIA [id number] [place] [id number] [place] MCH (RBC) [Entitic mass] 29.6 pg Normal 26.0-34.0 [facility] Comment on above: Order Comment: Specimen Type: BLOOD SPEC IMENOrdering Facility: [facility] Address: [address] [place] [address] Performed By: #### 5 7021-8 ####[facility] LABORATORYCLIA [id number] [place] [id number] [place] MCHC (RBC) [Mass/Vol] 32.0 g/dL Normal 30.5-36.0 [facility] Comment on above: Order Comment: Specimen Type: BLOOD SPEC IMENOrdering Facility: [facility] Address: [address] [place] [address] Performed By: #### 5 7021-8 ####[facility] LABORATORYCLIA [id number] [place] [id number] [place] MCV (RBC) [Entitic vol] 92.7 fL Normal 80.0-100.0 [facility] Comment on above: Order Comment: Specimen Type: BLOOD SPEC IMENOrdering Facility: [facility] Address: [address] [place] [address] Performed By: #### 5 7021-8 ####[facility] LABORATORYCLIA [id number] [place] [address] [place] Monocytes (Bld) [#/Vol] 1.56 10*3/uL High <0.87 [facility] Comment on above: Order Comment: Specimen Type: BLOOD SPEC IMENOrdering Facility: [facility] Address: [address] [place] [address] Performed By: #### 5 7021-8 ####[facility]ATORYCLIA [id number] [place] [id number] [place] Monocytes/100 WBC (Bld) 10.0 % Normal [facility] Comment on above: Order Comment: Specimen Type: BLOOD SPEC IMENOrdering Facility: [facility] Address: [address] [place] [address] Performed By: #### 5 7021-8 ####[facility] LABORATORYCLIA [id number] [place] [id number] [place] Neutrophils (Bld) [#/Vol] 9.83 10*3/uL High 1.45-7.50 [facility] Comment on above: Order Comment: Specimen Type: BLOOD SPEC IMENOrdering Facility: [facility] Address: [address] [place] [address] Performed By: #### 5 7021-8 ####[facility]ORATORYCLIA [id number] [place] [id number] [place] Neutrophils/100 WBC (Bld) 63.0 % Normal [facility] Comment on above: Order Comment: Specimen Type: BLOOD SPEC IMENOrdering Facility: [facility] Address: [address] [place] [address] Performed By: #### 5 7021-8 ####[facility] LABORATORYCLIA [id number] [place] [id number] [place] Nucleated RBC (Bld) [#/Vol] 0.16 10*3/uL High <0.01 [facility] Comment on above: Order Comment: Specimen Type: BLOOD SPEC IMENOrdering Facility: [facility] Address: [address] [place] [address] Performed By: #### 5 7021-8 ####[facility]ATORYCLIA [id number] [place] [id number] [place] Nucleated RBC/100 WBC (Bld) [Ratio] 1.0 /100 WBC Normal [facility] Comment on above: Order Comment: Specimen Type: BLOOD SPEC IMENOrdering Facility: [facility] Address: [address] [place] [address] Performed By: #### 5 7021-8 ####[facility]ATORYCLIA [id number] [place] [id number] [place] Platelet mean volume (Bld) [Entitic vol] 9.4 fL Normal 9.0-12.7 [facility] Comment on above: Order Comment: Specimen Type: BLOOD SPEC IMENOrdering Facility: [facility] Address: [address] [place] [address] Performed By: #### 5 7021-8 ####[facility]ATORYCLIA [id number] [place] [id number] [place] Platelets (Bld) [#/Vol] 579 10*3/uL High 150-400 [facility] Comment on above: Order Comment: Specimen Type: BLOOD SPEC IMENOrdering Facility: [facility] Address: [address] [place] [address] Performed By: #### 5 7021-8 ####[facility]ORATORYCLIA [id number] [place] [address] [place] Platelets Estimate (Bld) [#/Vol] Increased Normal [facility] Comment on above: Order Comment: Specimen Type: BLOOD SPEC IMENOrdering Facility: [facility] Address: [address] [place] [address] Performed By: #### 5 7021-8 ####[facility] LABORATORYCLIA [id number] [address] [place] Polychromasia LM Ql (Bld) Slight Normal [facility] Comment on above: Order Comment: Specimen Type: BLOOD SPEC IMENOrdering Facility: [facility] Address: [address] [place] [address] Performed By: #### 5 7021-8 ####[facility] LABORATORYCLIA [id number] [place] [address] [place] RBC (Bld) [#/Vol] 3.98 10*6/uL Normal 3.90-5.20 [facility] Comment on above: Order Comment: Specimen Type: BLOOD SPEC IMENOrdering Facility: [facility] Address: [address] [place] [address] Performed By: #### 5 7021-8 ####[facility] LABORATORYCLIA [id number] [address] [place] RED CELL MORPH Reviewed: see result s of individual morphologies Normal [facility] Comment on above: Order Comment: Specimen Type: BLOOD SPEC IMENOrdering Facility: [facility] Address: [address] [place] [address] Performed By: #### 5 7021-8 ####[facility] LABORATORYCLIA [id number] [address] [place] Target cells LM Ql (Bld) Few Normal [facility] Comment on above: Order Comment: Specimen Type: BLOOD SPEC IMENOrdering Facility: [facility] Address: [address] [place] [address] Performed By: #### 5 7021-8 ####[facility]ATORYCLIA [id number] [place] [id number] [facility] Variant lymphocytes/100 WBC (Bld) 1.0 % Normal [facility] Comment on above: Order Comment: Specimen Type: BLOOD SPEC IMENOrdering Facility: [facility] Address: [address] [place] [address] Performed By: #### 5 7021-8 ####[facility]ATORYCLIA [id number] [place] [id number] [facility] WBC (Bld) [#/Vol] 15.61 10*3/uL High 3.70-11.00 [facility] Comment on above: Order Comment: Specimen Type: BLOOD SPEC IMENOrdering Facility: [facility] Address: [address] [place] [address] Performed By: #### 5 7021-8 ####[facility]ATORYCLIA [id number] [place] [id number] [facility] CNDSon 08-11-2023 CNDS HNO ID: [id number] Author: JOE GRANDA MD Service: General Surgery [...] Needs: - follow up with JAYSHREE HUFFMAN CLINICAL STAFF RN as listed below Labs AND Procedures Pending [...] Your Medications These medications were sent to [facility] [address] [place] [address] Hours: Thursday-Thursday: 7am-7pm, Sat: 9am-1pm acetaminophen 500 mg tablet enoxaparin 60 mg/0.6 mL Syrg ondansetron orally disintegrating 4 mg disintegrating tablet oxyCODONE IR 5 mg immediate release tablet pantoprazole DR 40 mg tablet Appointments for Next 60 Days Date Time Provider Location Dept Phone 08/17/2023 10:00 AM JAYSHREE HUFFMAN [phone] 08/19/2023 11:45 AM ALEX MONSIVAIS [phone] 08/31/2023 9:45 AM RUPINDER COLBERT [facility] [phone] 08/31/2023 10:30 AM CHRISTOPHER SANTIAGO [facility] [phone] 09/07/2023 1:30 PM JAYSHREE HUFFMAN [phone] Highest Readmission Risk Score: 11 The 30 [...] Resulted Calcium (more content not included)... Normal [facility] Magnesium SerPl-mCncon 08-11 Magnesium [Mass/Vol] 2.0 mg/dL Normal 1.7-2.3 [facility] Comment on above: Order Comment: Specimen Type: BLOOD SPEC IMENOrdering Facility: [facility] Address: [address] [address] Performed By: #### 1 9123-9, 2777-1, 25465-5 ####GEORGE LABORATORYCLIA [id number] [place] [id number] [facility] [place] NURSING PROGon 08-11-2023 NURSING PROG HNO ID: [id number] Author: KIRA VANCE RN Service: ? Author [...] contact provider if anything changes occur. Normal [facility] Phosphate SerPl-mCncon 08-11 Phosphate [Mass/Vol] 4.3 mg/dL Normal 2.7-4.8 [facility] Comment on above: Order Comment: Specimen Type: BLOOD SPEC IMENOrdering Facility: [facility] Address: [address] [place] [address] Performed By: #### 1 9123-9, 2777-1, 28231-2 ####GEORGE LABORATORYCLIA [id number] [place] [id number] [place] Basic metabolic 2000 panelon 08-10-2023 Anion gap [Moles/Vol] 12 mmol/L Normal 9-18 [facility] Comment on above: Order Comment: Specimen Type: BLOOD SPEC IMENOrdering Facility: [facility] Address: [address] [place] [address] Performed By: #### 1 9123-9, 26852-5, 2777-1 ####GEORGE LABORATORYCLIA [id number] [place] [id number] [place] Calcium [Mass/Vol] 8.7 mg/dL Normal 8.5-10.2 [facility] Comment on above: Order Comment: Specimen Type: BLOOD SPEC IMENOrdering Facility: [facility] Address: [address] [place] [address] Performed By: #### 1 9123-9, 05576-2, 2776- ####[facility] LABORATORYCLIA [id number] [place] [id number] [place] Chloride [Moles/Vol] 104 mmol/L Normal 97-105 [facility] Comment on above: Order Comment: Specimen Type: BLOOD SPEC IMENOrdering Facility: [facility] Address: [address] [place] [address] Performed By: #### 1 9123-9, 11757-4, 2776-06 ####[facility] LABORATORYCLIA [id number] [place] [address] [place] CO2 [Moles/Vol] 24 mmol/L Normal 22-30 [facility] Comment on above: Order Comment: Specimen Type: BLOOD SPEC IMENOrdering Facility: [facility] Address: [address] [place] [address] Performed By: #### 1 9123-9, 09047-3, 2776-06 ####[facility] LABORATORYCLIA [id number] [place] [id number] [place] Creatinine [Mass/Vol] 0.65 mg/dL Normal 0.58-0.96 [facility] Comment on above: Order Comment: Specimen Type: BLOOD SPEC IMENOrdering Facility: [facility] Address: [address] [place] [address] Performed By: #### 1 9123-9, 91451-9, 2776-06 ####[facility] LABORATORYCLIA [id number] [place] [id number] [place] Creatinine and Glomerular filtration rate.predicted panel (S/P/Bld) 116 mL/min/1.73m??? Normal >=60 [facility] Comment on above: Order Comment: Specimen Type: BLOOD SPEC IMENOrdering Facility: [facility] Address: [address] [place] [address] Result Comment: Janet mated Glomerular Filtration Rate [...] actual GFR. Performed By: #### 1 9123-9, 49699-2, 2776- ####GARDNER LABORATORYCLIA [id number] [place] [id number] [place] Glucose [Mass/Vol] 91 mg/dL Normal 74-99 [facility] Comment on above: Order Comment: Specimen Type: BLOOD SPEC IMENOrdering Facility: [facility] Address: [address] [place] [address] Result Comment: The [place] [employer] (ADA) provides guidance for cutoff [...] Standards of Medical Care in Diabetes 2016, [place] [employer]. Diabetes Care. 2016.39(Suppl 1). Performed By: #### 1 9123-9, 30979-8, 2776-06 ####GARD[facility] LABORATORYCLIA [id number] [place] [id number] [place] Potassium [Moles/Vol] 3.4 mmol/L Low 3.7-5.1 [facility] Comment on above: Order Comment: Specimen Type: BLOOD SPEC IMENOrdering Facility: [facility] Address: [address] [place] [address] Performed By: #### 1 9123-9, 07230-0, 2776- ####[facility] LABORATORYCLIA [id number] [place] [id number] [place] Sodium [Moles/Vol] 140 mmol/L Normal 136-144 [facility] Comment on above: Order Comment: Specimen Type: BLOOD SPEC IMENOrdering Facility: [facility] Address: [address] [place] [address] Performed By: #### 1 9123-9, 22181-5, 27712-27 ####[facility] LABORATORYCLIA [id number] [place] [address] [place] Urea nitrogen [Mass/Vol] 3 mg/dL Low 7-21 [facility] Comment on above: Order Comment: Specimen Type: BLOOD SPEC IMENOrdering Facility: [facility] Address: [address] [place] [address] Performed By: #### 1 9123-9, 07542-1, 2776-06 ####[facility] LABORATORYCLIA [id number] [place] [address] [place] CBC W Auto Differential pane l (Bld)on 08-10-2023 Basophils (Bld) [#/Vol] 0.08 10*3/uL Normal <0.11 [facility] Comment on above: Order Comment: Specimen Type: BLOOD SPEC IMENOrdering Facility: [facility] Address: [address] [place] [address] Performed By: #### 5 7021-8 ####[facility] LABORATORYCLIA [id number] [address] [place] Basophils/100 WBC (Bld) 0.6 % Normal [facility] Comment on above: Order Comment: Specimen Type: BLOOD SPEC IMENOrdering Facility: [facility] Address: [address] [place] [address] Performed By: #### 5 7021-8 ####[facility] LABORATORYCLIA [id number] [address] [place] Differential cell count method Nom (Bld) Auto Normal [facility] Comment on above: Order Comment: Specimen Type: BLOOD SPEC IMENOrdering Facility: [facility] Address: [address] [place] [address] Performed By: #### 5 7021-8 ####GEORGE LABORATORYCLIA [id number] [place] [address] [place] Eosinophils (Bld) [#/Vol] 0.78 10*3/uL High <0.46 [facility] Comment on above: Order Comment: Specimen Type: BLOOD SPEC IMENOrdering Facility: [facility] Address: [address] [place] [address] Performed By: #### 5 7021-8 ####[facility] LABORATORYCLIA [id number] [address] [place] Eosinophils/100 WBC (Bld) 5.6 % Normal [facility] Comment on above: Order Comment: Specimen Type: BLOOD SPEC IMENOrdering Facility: [facility] Address: [address] [place] [address] Performed By: #### 5 7021-8 ####[facility] LABORATORYCLIA [id number] [address] [place] Erythrocyte distribution width (RBC) [Ratio] 14.7 % Normal 11.5-15.0 [facility] Comment on above: Order Comment: Specimen Type: BLOOD SPEC IMENOrdering Facility: [facility] Address: [address] [place] [address] Performed By: #### 5 7021-8 ####GEORGE LABORATORYCLIA [id number] [place] [address] [place] Hematocrit (Bld) [Volume fraction] 36.9 % Normal 36.0-46.0 [facility] Comment on above: Order Comment: Specimen Type: BLOOD SPEC IMENOrdering Facility: [facility] Address: [address] [place] [address] Performed By: #### 5 7021-8 ####GEORGE LABORATORYCLIA [id number] [place] [address] [place] Hemoglobin (Bld) [Mass/Vol] 11.6 g/dL Normal 11.5-15.5 [facility] Comment on above: Order Comment: Specimen Type: BLOOD SPEC IMENOrdering Facility: [facility] Address: [address] [place] [address] Performed By: #### 5 7021-8 ####[facility] LABORATORYCLIA [id number] [place] [id number] [place] Immature granulocytes (Bld) [#/Vol] 0.11 10*3/uL High <0.10 [facility] Comment on above: Order Comment: Specimen Type: BLOOD SPEC IMENOrdering Facility: [facility] Address: [address] [place] [address] Performed By: #### 5 7021-8 ####[facility] LABORATORYCLIA [id number] [address] Immature granulocytes/100 WBC (Bld) 0.8 % Normal [facility] Comment on above: Order Comment: Specimen Type: BLOOD SPEC IMENOrdering Facility: [facility] Address: [address] [place] [address] Performed By: #### 5 7021-8 ####[facility] LABORATORYCLIA [id number] [place] [id number] [place] Lymphocytes (Bld) [#/Vol] 4.03 10*3/uL High 1.00-4.00 [facility] Comment on above: Order Comment: Specimen Type: BLOOD SPEC IMENOrdering Facility: [facility] Address: [address] [place] [address] Performed By: #### 5 7021-8 ####[facility] LABORATORYCLIA [id number] [place] [id number] [place] Lymphocytes/100 WBC (Bld) 28.8 % Normal [facility] Comment on above: Order Comment: Specimen Type: BLOOD SPEC IMENOrdering Facility: [facility] Address: [address] [place] [address] Performed By: #### 5 7021-8 ####[facility] LABORATORYCLIA [id number] [place] [id number] [place] MCH (RBC) [Entitic mass] 29.2 pg Normal 26.0-34.0 [facility] Comment on above: Order Comment: Specimen Type: BLOOD SPEC IMENOrdering Facility: [facility] Address: [facility] [place] [place] [address] Performed By: #### 5 7021-8 ####[facility] LABORATORYCLIA [id number] [place] [address] [place] MCHC (RBC) [Mass/Vol] 31.4 g/dL Normal 30.5-36.0 [facility] Comment on above: Order Comment: Specimen Type: BLOOD SPEC IMENOrdering Facility: [facility] Address: [address] [place] [address] Performed By: #### 5 7021-8 ####[facility] LABORATORYCLIA [id number] [address] [place] MCV (RBC) [Entitic vol] 92.9 fL Normal 80.0-100.0 [facility] Comment on above: Order Comment: Specimen Type: BLOOD SPEC IMENOrdering Facility: [facility] Address: [address] [place] [address] Performed By: #### 5 7021-8 ####[facility] LABORATORYCLIA [id number] [place] [address] [place] Monocytes (Bld) [#/Vol] 1.33 10*3/uL High <0.87 [facility] Comment on above: Order Comment: Specimen Type: BLOOD SPEC IMENOrdering Facility: [facility] Address: [address] [place] [address] Performed By: #### 5 7021-8 ####[facility] LABORATORYCLIA [id number] [address] [place] Monocytes/100 WBC (Bld) 9.5 % Normal [facility] Comment on above: Order Comment: Specimen Type: BLOOD SPEC IMENOrdering Facility: [facility] Address: [address] [place] [address] Performed By: #### 5 7021-8 ####GEORGE LABORATORYCLIA [id number] [place] [address] [place] Neutrophils (Bld) [#/Vol] 7.66 10*3/uL High 1.45-7.50 [facility] Comment on above: Order Comment: Specimen Type: BLOOD SPEC IMENOrdering Facility: [facility] Address: [address] [place] [address] Performed By: #### 5 7021-8 ####GEORGE LABORATORYCLIA [id number] [place] [id number] [place] Neutrophils/100 WBC (Bld) 54.7 % Normal [facility] Comment on above: Order Comment: Specimen Type: BLOOD SPEC IMENOrdering Facility: [facility] Address: [address] [place] [address] Performed By: #### 5 7021-8 ####GEORGE LABORATORYCLIA [id number] [place] [address] [place] Nucleated RBC (Bld) [#/Vol] 0.03 10*3/uL High <0.01 [facility] Comment on above: Order Comment: Specimen Type: BLOOD SPEC IMENOrdering Facility: [facility] Address: [address] [place] [address] Performed By: #### 5 7021-8 ####GEORGE LABORATORYCLIA [id number] [place] [address] [place] Nucleated RBC/100 WBC (Bld) [Ratio] 0.2 /100 WBC Normal [facility] Comment on above: Order Comment: Specimen Type: BLOOD SPEC IMENOrdering Facility: [facility] Address: [address] [place] [address] Performed By: #### 5 7021-8 ####GEORGE LABORATORYCLIA [id number] [place] [id number] [place] Platelet mean volume (Bld) [Entitic vol] 9.9 fL Normal 9.0-12.7 [facility] Comment on above: Order Comment: Specimen Type: BLOOD SPEC IMENOrdering Facility: [facility] Address: [address] [place] [address] Performed By: #### 5 7021-8 ####G[facility] LABORATORYCLIA [id number] [place] [id number] [place] Platelets (Bld) [#/Vol] 557 10*3/uL High 150-400 [facility] Comment on above: Order Comment: Specimen Type: BLOOD SPEC IMENOrdering Facility: [facility] Address: [address] [place] [address] Performed By: #### 5 7021-8 ####[facility] LABORATORYCLIA [id number] [place] [id number] [place] RBC (Bld) [#/Vol] 3.97 10*6/uL Normal 3.90-5.20 [facility] Comment on above: Order Comment: Specimen Type: BLOOD SPEC IMENOrdering Facility: [facility] Address: [address] [place] [address] Performed By: #### 5 7021-8 ####[facility] LABORATORYCLIA [id number] [place] [id number] [place] [facility] WBC (Bld) [#/Vol] 13.99 10*3/uL High 3.70-11.00 [facility] Comment on above: Order Comment: Specimen Type: BLOOD SPEC IMENOrdering Facility: [facility] Address: [address] [place] [address] Performed By: #### 5 7021-8 ####[facility] LABORATORYCLIA [id number] [place] [id number] [facility] [place] Magnesium SerPl-mCncon 08-10 Magnesium [Mass/Vol] 1.8 mg/dL Normal 1.7-2.3 [facility] Comment on above: Order Comment: Specimen Type: BLOOD SPEC IMENOrdering Facility: [facility] Address: [address] [place] [address] Performed By: #### 1 9123-9, 04518-8, 2777-1 ####[facility] LABORATORYCLIA [id number] [place] [id number] [place] NURSING PROGon 08-10-2023 NURSING PROG HNO ID: [id number] Author: SUDHA WELCH, SUSAN Service: ? Author [...] possible home today, continue to monitor. Normal [facility] Phosphate SerPl-mCncon 08-10 Phosphate [Mass/Vol] 4.2 mg/dL Normal 2.7-4.8 [facility] Comment on above: Order Comment: Specimen Type: BLOOD SPEC IMENOrdering Facility: [facility] Address: [address] [place] [address] Performed By: #### 1 9123-9, 92991-9, 2777-1 ####[facility] LABORATORYCLIA [id number] [place] [id number] [place] Basic metabolic 2000 panelon 08-09-2023 Anion gap [Moles/Vol] 12 mmol/L Normal 9-18 [facility] Comment on above: Order Comment: Specimen Type: BLOOD SPEC IMENOrdering Facility: [facility] Address: [address] [place] [address] Performed By: #### 2 777-1, , ####G[facility] LABORATORYCLIA [id number] [place] [id number] [place] Calcium [Mass/Vol] 8.3 mg/dL Low 8.5-10.2 [facility] Comment on above: Order Comment: Specimen Type: BLOOD SPEC IMENOrdering Facility: [facility] Address: [address] [place] [address] Performed By: #### 2 777-1, , ####GARDNER LABORATORYCLIA [id number] [place] [id number] [place] Chloride [Moles/Vol] 103 mmol/L Normal 97-105 [facility] Comment on above: Order Comment: Specimen Type: BLOOD SPEC IMENOrdering Facility: [facility] Address: [address] [place] [id number] Performed By: #### 2 777-1, , ####GEORGE LABORATORYCLIA [id number] [place] [id number] [place] [facility] CO2 [Moles/Vol] 22 mmol/L Normal 22-30 [facility] Comment on above: Order Comment: Specimen Type: BLOOD SPEC IMENOrdering Facility: [facility] Address: [address] [place] [address] Performed By: #### 2 777-1, , ####GEORGE LABORATORYCLIA [id number] [place] [id number] [facility] Creatinine [Mass/Vol] 0.59 mg/dL Normal 0.58-0.96 [facility] Comment on above: Order Comment: Specimen Type: BLOOD SPEC IMENOrdering Facility: [facility] Address: [address] [place] [address] Performed By: #### 2 777-1, , ####GEORGE LABORATORYCLIA [id number] [place] [id number] [facility] Creatinine and Glomerular filtration rate.predicted panel (S/P/Bld) 118 mL/min/1.73m??? Normal >=60 [facility] Comment on above: Order Comment: Specimen Type: BLOOD SPEC IMENOrdering Facility: [facility] Address: [address] [place] [address] Result Comment: Janet mated Glomerular Filtration Rate [...] GFR. Performed By: #### 2 777-1, , 87772-2 ####GEORGE LABORATORYCLIA [id number] [place] [id number] [place] Glucose [Mass/Vol] 98 mg/dL Normal 74-99 [facility] Comment on above: Order Comment: Specimen Type: BLOOD SPEC IMENOrdering Facility: [facility] Address: [address] [place] [address] Result Comment: The [place] [employer] (ADA) provides guidance for cutoff [...] Standards of Medical Care in Diabetes 2016, [place] [employer]. Diabetes Care. 2016.39(Suppl 1). Performed By: #### 2 777-1, , ####GARDNER LABORATORYCLIA [id number] [place] [address] [place] Potassium [Moles/Vol] 3.5 mmol/L Low 3.7-5.1 [facility] Comment on above: Order Comment: Specimen Type: BLOOD SPEC IMENOrdering Facility: [facility] Address: [address] [place] [address] Performed By: #### 2 777-1, , ####GARD[facility] LABORATORYCLIA [id number] [place] [id number] [place] Sodium [Moles/Vol] 137 mmol/L Normal 136-144 [facility] Comment on above: Order Comment: Specimen Type: BLOOD SPEC IMENOrdering Facility: [facility] Address: [address] [place] [address] Performed By: #### 2 777-1, , ####GARDNER LABORATORYCLIA [id number] [place] [id number] [place] Urea nitrogen [Mass/Vol] 3 mg/dL Low 7-21 [facility] Comment on above: Order Comment: Specimen Type: BLOOD SPEC IMENOrdering Facility: [facility] Address: [address] [place] [address] Performed By: #### 2 777-1, 01362-7, 79063-6 ####[facility] LABORATORYCLIA [id number] [place] [address] [place] CBC W Auto Differential pane l (Bld)on 08-09-2023 Basophils (Bld) [#/Vol] 0.08 10*3/uL Normal <0.11 [facility] Comment on above: Order Comment: Specimen Type: BLOOD SPEC IMENOrdering Facility: [facility] Address: [address] [place] [address] Performed By: #### 5 7021-8 ####[facility] LABORATORYCLIA [id number] [place] [address] [place] Basophils/100 WBC (Bld) 0.6 % Normal [facility] Comment on above: Order Comment: Specimen Type: BLOOD SPEC IMENOrdering Facility: [facility] Address: [address] [place] [address] Performed By: #### 5 7021-8 ####[facility] LABORATORYCLIA [id number] [place] [address] [place] Differential cell count method Nom (Bld) Auto Normal [facility] Comment on above: Order Comment: Specimen Type: BLOOD SPEC IMENOrdering Facility: [facility] Address: [address] [place] [address] Performed By: #### 5 7021-8 ####[facility] LABORATORYCLIA [id number] [place] [id number] [place] Eosinophils (Bld) [#/Vol] 0.78 10*3/uL High <0.46 [facility] Comment on above: Order Comment: Specimen Type: BLOOD SPEC IMENOrdering Facility: [facility] Address: [address] [place] [address] Performed By: #### 5 7021-8 ####GEORGE LABORATORYCLIA [id number] [place] [address] [place] Eosinophils/100 WBC (Bld) 5.4 % Normal [facility] Comment on above: Order Comment: Specimen Type: BLOOD SPEC IMENOrdering Facility: [facility] Address: [address] [place] [address] Performed By: #### 5 7021-8 ####GEORGE LABORATORYCLIA [id number] [place] [address] [place] Erythrocyte distribution width (RBC) [Ratio] 14.6 % Normal 11.5-15.0 [facility] Comment on above: Order Comment: Specimen Type: BLOOD SPEC IMENOrdering Facility: [facility] Address: [address] [place] [address] Performed By: #### 5 7021-8 ####GEORGE LABORATORYCLIA [id number] [place] [address] [place] Hematocrit (Bld) [Volume fraction] 37.6 % Normal 36.0-46.0 [facility] Comment on above: Order Comment: Specimen Type: BLOOD SPEC IMENOrdering Facility: [facility] Address: [address] [place] [address] Performed By: #### 5 7021-8 ####GEORGE LABORATORYCLIA [id number] [place] [address] [place] Hemoglobin (Bld) [Mass/Vol] 11.9 g/dL Normal 11.5-15.5 [facility] Comment on above: Order Comment: Specimen Type: BLOOD SPEC IMENOrdering Facility: [facility] Address: [address] [place] [address] Performed By: #### 5 7021-8 ####GEORGE LABORATORYCLIA [id number] [place] [address] [place] Immature granulocytes (Bld) [#/Vol] 0.08 10*3/uL Normal <0.10 [facility] Comment on above: Order Comment: Specimen Type: BLOOD SPEC IMENOrdering Facility: [facility] Address: [address] [place] [address] Performed By: #### 5 7021-8 ####GEORGE LABORATORYCLIA [id number] [place] [id number] [place] Immature granulocytes/100 WBC (Bld) 0.6 % Normal [facility] Comment on above: Order Comment: Specimen Type: BLOOD SPEC IMENOrdering Facility: [facility] Address: [address] [place] [address] Performed By: #### 5 7021-8 ####GEORGE LABORATORYCLIA [id number] [place] [address] [place] Lymphocytes (Bld) [#/Vol] 3.71 10*3/uL Normal 1.00-4.00 [facility] Comment on above: Order Comment: Specimen Type: BLOOD SPEC IMENOrdering Facility: [facility] Address: [address] [place] [address] Performed By: #### 5 7021-8 ####GEORGE LABORATORYCLIA [id number] [place] [address] [place] Lymphocytes/100 WBC (Bld) 25.7 % Normal [facility] Comment on above: Order Comment: Specimen Type: BLOOD SPEC IMENOrdering Facility: [facility] Address: [address] [place] [address] Performed By: #### 5 7021-8 ####GEORGE LABORATORYCLIA [id number] [address] [place] MCH (RBC) [Entitic mass] 29.5 pg Normal 26.0-34.0 [facility] Comment on above: Order Comment: Specimen Type: BLOOD SPEC IMENOrdering Facility: [facility] Address: [address] [place] [address] Performed By: #### 5 7021-8 ####[facility] LABORATORYCLIA [id number] [address] [place] MCHC (RBC) [Mass/Vol] 31.6 g/dL Normal 30.5-36.0 [facility] Comment on above: Order Comment: Specimen Type: BLOOD SPEC IMENOrdering Facility: [facility] Address: [address] [place], [place] [address] Performed By: #### 5 7021-8 ####[facility] LABORATORYCLIA [id number] [place] [id number] [place] MCV (RBC) [Entitic vol] 93.1 fL Normal 80.0-100.0 [facility] Comment on above: Order Comment: Specimen Type: BLOOD SPEC IMENOrdering Facility: [facility] Address: [address] [place] [address] Performed By: #### 5 7021-8 ####[facility] LABORATORYCLIA [id number] [place] [id number] [place] Monocytes (Bld) [#/Vol] 1.36 10*3/uL High <0.87 [facility] Comment on above: Order Comment: Specimen Type: BLOOD SPEC IMENOrdering Facility: [facility] Address: [address] [place] [address] Performed By: #### 5 7021-8 ####[facility] LABORATORYCLIA [id number] [place] [id number] [place] Monocytes/100 WBC (Bld) 9.4 % Normal [facility] Comment on above: Order Comment: Specimen Type: BLOOD SPEC IMENOrdering Facility: [facility] Address: [address] [place] [address] Performed By: #### 5 7021-8 ####[facility] LABORATORYCLIA [id number] [place] [id number] [place] Neutrophils (Bld) [#/Vol] 8.44 10*3/uL High 1.45-7.50 [facility] Comment on above: Order Comment: Specimen Type: BLOOD SPEC IMENOrdering Facility: [facility] Address: [address] [place] [address] Performed By: #### 5 7021-8 ####[facility] LABORATORYCLIA [id number] [place] [id number] [place] Neutrophils/100 WBC (Bld) 58.3 % Normal [facility] Comment on above: Order Comment: Specimen Type: BLOOD SPEC IMENOrdering Facility: [facility] Address: [address] [place] [address] Performed By: #### 5 7021-8 ####[facility] LABORATORYCLIA [id number] [place] [id number] [place] Nucleated RBC (Bld) [#/Vol] 0.03 10*3/uL High <0.01 [facility] Comment on above: Order Comment: Specimen Type: BLOOD SPEC IMENOrdering Facility: [facility] Address: [address] [place] [address] Performed By: #### 5 7021-8 ####[facility] LABORATORYCLIA [id number] [place] [id number] [place] Nucleated RBC/100 WBC (Bld) [Ratio] 0.2 /100 WBC Normal [facility] Comment on above: Order Comment: Specimen Type: BLOOD SPEC IMENOrdering Facility: [facility] Address: [address] [place] [address] Performed By: #### 5 7021-8 ####[facility] LABORATORYCLIA [id number] [place] [address] [place] Platelet mean volume (Bld) [Entitic vol] 9.5 fL Normal 9.0-12.7 [facility] Comment on above: Order Comment: Specimen Type: BLOOD SPEC IMENOrdering Facility: [facility] Address: [address] [place] [address] Performed By: #### 5 7021-8 ####[facility] LABORATORYCLIA [id number] [place] [id number] [place] Platelets (Bld) [#/Vol] 499 10*3/uL High 150-400 [facility] Comment on above: Order Comment: Specimen Type: BLOOD SPEC IMENOrdering Facility: [facility] Address: [address] [place] [address] Performed By: #### 5 7021-8 ####[facility] LABORATORYCLIA [id number] [place] [id number] [place] RBC (Bld) [#/Vol] 4.04 10*6/uL Normal 3.90-5.20 [facility] Comment on above: Order Comment: Specimen Type: BLOOD SPEC IMENOrdering Facility: [facility] Address: [address] [place] [id number] Performed By: #### 5 7021-8 ####[facility] LABORATORYCLIA [id number] [address] [place] WBC (Bld) [#/Vol] 14.45 10*3/uL High 3.70-11.00 [facility] Comment on above: Order Comment: Specimen Type: BLOOD SPEC IMENOrdering Facility: [facility] Address: [address] [place] [id number] Performed By: #### 5 7021-8 ####[facility] LABORATORYCLIA [id number] [address] CONSULT PROGon 08-09-2023 CONSULT PROG HNO ID: [id number] Author: BUCKY FLORES APRN.SEED TRUCKER Service: Pain Management Author Type: Nurse Practitioner [...] Please call with questions. SIGNATURE: Bucky Flores APRN.SEED TRUCKER PAGER:[phone] DATE of SERVICE: August 09, 2023 TIME of SERVICE: 2:20 PM Normal [facility] Magnesium [facility] 08-09 Magnesium [Mass/Vol] 1.8 mg/dL Normal 1.7-2.3 [facility] Comment on above: Order Comment: Specimen Type: BLOOD SPEC IMENOrdering Facility: [facility] Address: [address] [place] [address] Performed By: #### 2 777-1, , ####[facility] LABORATORYCLIA [id number] [address] [place] NURSING PROGon 08-09-2023 NURSING PROG HNO ID: [id number] Author: KIRA VANCE RN Service: ? Author [...] LIP. Pt is ambulating in hallway. Normal [facility] Phosphate [facility] Phosphate [Mass/Vol] 3.2 mg/dL Normal 2.7-4.8 [facility] Comment on above: Order Comment: Specimen Type: BLOOD SPEC IMENOrdering Facility: [facility] Address: [address] [place] [address] Performed By: #### 2 777-1, , ####[facility] LABORATORYCLIA [id number] [place] [id number] [place] Basic metabolic 2000 panelon 08-08-2023 Anion gap [Moles/Vol] 12 mmol/L Normal 9-18 [facility] Comment on above: Order Comment: Specimen Type: BLOOD SPEC IMENOrdering Facility: [facility] Address: [address] [place] [address] Performed By: #### 2 777-1, , ####[facility] LABORATORYCLIA [id number] [place] [address] [place] Calcium [Mass/Vol] 8.6 mg/dL Normal 8.5-10.2 [facility] Comment on above: Order Comment: Specimen Type: BLOOD SPEC IMENOrdering Facility: [facility] Address: [place] [address] Performed By: #### 2 777-1, , ####[facility] LABORATORYCLIA [id number] [place] [address] [place] Chloride [Moles/Vol] 105 mmol/L Normal 97-105 [facility] Comment on above: Order Comment: Specimen Type: BLOOD SPEC IMENOrdering Facility: [facility] Address: [place] [address] Performed By: #### 2 777-1, , ####[facility] LABORATORYCLIA [id number] [place] [id number] [place] CO2 [Moles/Vol] 21 mmol/L Low 22-30 [facility] Comment on above: Order Comment: Specimen Type: BLOOD SPEC IMENOrdering Facility: [facility] Address: [address] [place] [address] Performed By: #### 2 777-1, , ####[facility] LABORATORYCLIA [id number] [place] [id number] [place] Creatinine [Mass/Vol] 0.58 mg/dL Normal 0.58-0.96 [facility] Comment on above: Order Comment: Specimen Type: BLOOD SPEC IMENOrdering Facility: [facility] Address: [address] [place] [address] Performed By: #### 2 777-1, , 77909-6 ####[facility] LABORATORYCLIA [id number] [place] [id number] [place] Creatinine and Glomerular filtration rate.predicted panel (S/P/Bld) 119 mL/min/1.73m??? Normal >=60 [facility] Comment on above: Order Comment: Specimen Type: BLOOD SPEC IMENOrdering Facility: [facility] Address: [address] [place] [address] Result Comment: Janet mated Glomerular Filtration Rate [...] GFR. Performed By: #### 2 777-1, , 06581-2 ####[facility] LABORATORYCLIA [id number] [place] [id number] [place] Glucose [Mass/Vol] 97 mg/dL Normal 74-99 [facility] Comment on above: Order Comment: Specimen Type: BLOOD SPEC IMENOrdering Facility: [facility] Address: [address] [place] [address] Result Comment: The [place] [employer] (ADA) provides guidance for cutoff [...] Standards of Medical Care in Diabetes 2016, [place] [employer]. Diabetes Care. 2016.39(Suppl 1). Performed By: #### 2 777-1, , 25220-6 ####[facility] LABORATORYCLIA [id number] [place] [address] [place] Potassium [Moles/Vol] 3.9 mmol/L Normal 3.7-5.1 [facility] Comment on above: Order Comment: Specimen Type: BLOOD SPEC IMENOrdering Facility: [facility] Address: [address] [place] [address] Performed By: #### 2 777-1, , 08379-1 ####[facility] LABORATORYCLIA [id number] [place] [id number] [place] Sodium [Moles/Vol] 138 mmol/L Normal 136-144 [facility] Comment on above: Order Comment: Specimen Type: BLOOD SPEC IMENOrdering Facility: [facility] Address: [address] [place] [address] Performed By: #### 2 777-1, , ####[facility] LABORATORYCLIA [id number] [place] [id number] [place] Urea nitrogen [Mass/Vol] 3 mg/dL Low 7-21 [facility] Comment on above: Order Comment: Specimen Type: BLOOD SPEC IMENOrdering Facility: [facility] Address: [address] [place] [address] Performed By: #### 2 777-1, , ####[facility] LABORATORYCLIA [id number] [place] [id number] [place] CBC W Auto Differential pane l (Bld)on 08-08-2023 Basophils (Bld) [#/Vol] 0.08 10*3/uL Normal <0.11 [facility] Comment on above: Order Comment: Specimen Type: BLOOD SPEC IMENOrdering Facility: [facility] Address: [address] [place] [address] Performed By: #### 5 7021-8 ####[facility] LABORATORYCLIA [id number] [place] [address] [place] Basophils/100 WBC (Bld) 0.5 % Normal [facility] Comment on above: Order Comment: Specimen Type: BLOOD SPEC IMENOrdering Facility: [facility] Address: [address] [place] [address] Performed By: #### 5 7021-8 ####[facility] LABORATORYCLIA [id number] [place] [id number] [place] Differential cell count method Nom (Bld) Auto Normal [facility] Comment on above: Order Comment: Specimen Type: BLOOD SPEC IMENOrdering Facility: [facility] Address: [address] [place] [address] Performed By: #### 5 7021-8 ####[facility] LABORATORYCLIA [id number] [place] [address] [place] Eosinophils (Bld) [#/Vol] 0.70 10*3/uL High <0.46 [facility] Comment on above: Order Comment: Specimen Type: BLOOD SPEC IMENOrdering Facility: [facility] Address: [address] [place] [address] Performed By: #### 5 7021-8 ####[facility] LABORATORYCLIA [id number] [place] [address] [place] Eosinophils/100 WBC (Bld) 4.7 % Normal [facility] Comment on above: Order Comment: Specimen Type: BLOOD SPEC IMENOrdering Facility: [facility] Address: [address] [place] [address] Performed By: #### 5 7021-8 ####[facility] LABORATORYCLIA [id number] [place] [id number] [place] Erythrocyte distribution width (RBC) [Ratio] 14.2 % Normal 11.5-15.0 [facility] Comment on above: Order Comment: Specimen Type: BLOOD SPEC IMENOrdering Facility: [facility] Address: [address] [place] [address] Performed By: #### 5 7021-8 ####[facility] LABORATORYCLIA [id number] [place] [id number] [place] Hematocrit (Bld) [Volume fraction] 35.7 % Low 36.0-46.0 [facility] Comment on above: Order Comment: Specimen Type: BLOOD SPEC IMENOrdering Facility: [facility] Address: [address] [place] [address] Performed By: #### 5 7021-8 ####[facility] LABORATORYCLIA [id number] [place] [id number] [place] Hemoglobin (Bld) [Mass/Vol] 11.4 g/dL Low 11.5-15.5 [facility] Comment on above: Order Comment: Specimen Type: BLOOD SPEC IMENOrdering Facility: [facility] Address: [address] [place] [address] Performed By: #### 5 7021-8 ####[facility] LABORATORYCLIA [id number] [place] [id number] [place] Immature granulocytes (Bld) [#/Vol] 0.06 10*3/uL Normal <0.10 [facility] Comment on above: Order Comment: Specimen Type: BLOOD SPEC IMENOrdering Facility: [facility] Address: [address] [place] [address] Performed By: #### 5 7021-8 ####[facility] LABORATORYCLIA [id number] [place] [id number] [place] Immature granulocytes/100 WBC (Bld) 0.4 % Normal [facility] Comment on above: Order Comment: Specimen Type: BLOOD SPEC IMENOrdering Facility: [facility] Address: [address] [place] [address] Performed By: #### 5 7021-8 ####[facility] LABORATORYCLIA [id number] [place] [id number] [place] Lymphocytes (Bld) [#/Vol] 3.44 10*3/uL Normal 1.00-4.00 [facility] Comment on above: Order Comment: Specimen Type: BLOOD SPEC IMENOrdering Facility: [facility] Address: [address] [place] [address] Performed By: #### 5 7021-8 ####[facility] LABORATORYCLIA [id number] [place] [id number] [place] Lymphocytes/100 WBC (Bld) 22.9 % Normal [facility] Comment on above: Order Comment: Specimen Type: BLOOD SPEC IMENOrdering Facility: [facility] Address: [address] [place] [address] Performed By: #### 5 7021-8 ####[facility] LABORATORYCLIA [id number] [address] [place] [facility] MCH (RBC) [Entitic mass] 29.6 pg Normal 26.0-34.0 [facility] Comment on above: Order Comment: Specimen Type: BLOOD SPEC IMENOrdering Facility: [facility] Address: [address] [place] [address] Performed By: #### 5 7021-8 ####[facility] LABORATORYCLIA [id number] [address] MCHC (RBC) [Mass/Vol] 31.9 g/dL Normal 30.5-36.0 [facility] Comment on above: Order Comment: Specimen Type: BLOOD SPEC IMENOrdering Facility: [facility] Address: [address] [place] [address] Performed By: #### 5 7021-8 ####[facility] LABORATORYCLIA [id number] [address] MCV (RBC) [Entitic vol] 92.7 fL Normal 80.0-100.0 [facility] Comment on above: Order Comment: Specimen Type: BLOOD SPEC IMENOrdering Facility: [facility] Address: [address] [place] [address] Performed By: #### 5 7021-8 ####[facility] LABORATORYCLIA [id number] [address] [place] Monocytes (Bld) [#/Vol] 1.42 10*3/uL High <0.87 [facility] Comment on above: Order Comment: Specimen Type: BLOOD SPEC IMENOrdering Facility: [facility] Address: [address] [place] [address] Performed By: #### 5 7021-8 ####[facility] LABORATORYCLIA [id number] [place] [address] [place] Monocytes/100 WBC (Bld) 9.4 % Normal [facility] Comment on above: Order Comment: Specimen Type: BLOOD SPEC IMENOrdering Facility: [facility] Address: [address] [place] [address] Performed By: #### 5 7021-8 ####[facility] LABORATORYCLIA [id number] [place] [id number] [place] Neutrophils (Bld) [#/Vol] 9.33 10*3/uL High 1.45-7.50 [facility] Comment on above: Order Comment: Specimen Type: BLOOD SPEC IMENOrdering Facility: [facility] Address: [address] [place] [address] Performed By: #### 5 7021-8 ####[facility] LABORATORYCLIA [id number] [place] [address] [place] Neutrophils/100 WBC (Bld) 62.1 % Normal [facility] Comment on above: Order Comment: Specimen Type: BLOOD SPEC IMENOrdering Facility: [facility] Address: [address] [place] [address] Performed By: #### 5 7021-8 ####[facility] LABORATORYCLIA [id number] [place] [id number] [place] Nucleated RBC (Bld) [#/Vol] 10*3/uL Normal <0.01 [facility] Comment on above: Order Comment: Specimen Type: BLOOD SPEC IMENOrdering Facility: [facility] Address: [address] [place] [address] Performed By: #### 5 7021-8 ####[facility] LABORATORYCLIA [id number] [place] [id number] [place] Nucleated RBC/100 WBC (Bld) [Ratio] 0.0 /100 WBC Normal [facility] Comment on above: Order Comment: Specimen Type: BLOOD SPEC IMENOrdering Facility: [facility] Address: [address] [place] [address] Performed By: #### 5 7021-8 ####[facility] LABORATORYCLIA [id number] [place] [id number] [place] Platelet mean volume (Bld) [Entitic vol] 9.8 fL Normal 9.0-12.7 [facility] Comment on above: Order Comment: Specimen Type: BLOOD SPEC IMENOrdering Facility: [facility] Address: [address] [place] [address] Performed By: #### 5 7021-8 ####[facility] LABORATORYCLIA [id number] [place] [id number] [place] Platelets (Bld) [#/Vol] 457 10*3/uL High 150-400 [facility] Comment on above: Order Comment: Specimen Type: BLOOD SPEC IMENOrdering Facility: [facility] Address: [address] [place] [address] Performed By: #### 5 7021-8 ####[facility] LABORATORYCLIA [id number] [place] [address] [place] RBC (Bld) [#/Vol] 3.85 10*6/uL Low 3.90-5.20 [facility] Comment on above: Order Comment: Specimen Type: BLOOD SPEC IMENOrdering Facility: [facility] Address: [address] [place] [address] Performed By: #### 5 7021-8 ####[facility] LABORATORYCLIA [id number] [place] [id number] [place] WBC (Bld) [#/Vol] 15.03 10*3/uL High 3.70-11.00 [facility] Comment on above: Order Comment: Specimen Type: BLOOD SPEC IMENOrdering Facility: [facility] Address: [address] [place] [address] Performed By: #### 5 7021-8 ####[facility] LABORATORYCLIA [id number] [place] [id number] [facility] CONSULT PROGon 08-08-2023 CONSULT PROG HNO ID: [id number] Author: AUGUSTUS HERRERA PA-C Service: Pain Management Author Type: Physician Seo Executive Type: Consult Progress Note Filed: 08/08/2023 10:26 [...] PERTINENT ROS: ALLERGIES ALLERGIES Allergen Reactions Adhes. Osss-Phho-Ec* Rash Adhesive Tape-Silic* Rash Augmentin [Amoxicil* Diarrhea [...] Day of surgery MEDICATIONS: Epidural Medications and RISK LEAD Settings Bupivacaine 0.0625% + Fentanyl 2 mcg/mL Basal rate: 8 mL/hr. Patient Demand Bolus: 4 mL. Lockout interval: 15 minutes. Patient received 6/ doses in the last 4 hours. Additional medication(s) given: See below Anticoagulation therapy: Heparin 5000 units TID Last Dose given: 08/08 536 Allergy: ALLERGIES Allergen Reactions Adhes. Fuui-Lppr-Pj* Rash Adhesive Tape-Silic* Rash Augmentin [Amoxicil* Diarrhea [...] (CYMBALTA) 60 mg ORAL DAILY phenol 1 Pandora (CHLORASEPTIC) 1 Pandora MUCOUS MEMBRANE (TOPICAL MOUTH AND THROAT) q 2 H PRN cetirizine 10 mg tab(s) (ZYRTEC) 10 mg ORAL DAILY acetaminophen 1,000 mg tab(s) (TYLENOL) 1,000 mg ORAL q 6 H fentaNYL 50 mcg/mL 25 mcg injection (SUBLI (more content not included)... Normal [facility] Magnesium [facility] Magnesium [Mass/Vol] 1.8 mg/dL Normal 1.7-2.3 [facility] Comment on above: Order Comment: Specimen Type: BLOOD SPEC IMENOrdering Facility: [facility] Address: [address] [place] [address] Performed By: #### 2 777-1, , 33408-0 ####[facility] LABORATORYCLIA [id number] [place] [id number] [facility] NURSING PROGon 08-08-2023 NURSING PROG HNO ID: [id number] Author: KIRA VANCE RN Service: ? Author Type: Registered Nurse Type: Nursing Progress Note Filed: 08/08/2023 09:15 Note Text: Nursing Progress Note: Pt AANDO x 3. Abdomen is soft and tender. Upper transverse incision open to air with glue. Epidural infusing per MAR. Lungs diminished on RA. SR on tele. Pt up with 1 assist. Pt tolerating phase II bariatric diet. Normal [facility] Phosphate [facility] Phosphate [Mass/Vol] 3.2 mg/dL Normal 2.7-4.8 [facility] Comment on above: Order Comment: Specimen Type: BLOOD SPEC IMENOrdering Facility: [facility] Address: [address] [place] [address] Performed By: #### 2 777-1, , 25479-7 ####[facility] LABORATORYCLIA [id number] [place] [id number] [facility] Urinalysis complete panel (U )on 08-08-2023 Bacteria LM.HPF (Urine sed) [#/Area] Rare Abnormal None Seen [facility] Comment on above: Order Comment: Specimen Type: URINE SPEC IMENOrdering Facility: [facility] Address: [address] [place] [address] Performed By: #### 2 4356-8 ####[facility] LABORATORYCLIA [id number] [address] LABCLIA [id number] [address] [place] Bilirubin Ql (U) Negative Normal Negative [facility] Comment on above: Order Comment: Specimen Type: URINE SPEC IMENOrdering Facility: [facility] Address: [address] [place] [address] Performed By: #### 2 4356-8 ####[facility] LABORATORYCLIA [id number] [address] LABCLIA [id number] [address] [place] Clarity (Unsp spec) Turbid Abnormal Clear [facility] Comment on above: Order Comment: Specimen Type: URINE SPEC IMENOrdering Facility: [facility] Address: [address] [place] [address] Performed By: #### 2 4356-8 ####[facility] LABORATORYCLIA [id number] [address] LABCLIA [id number] [address] [place] Color (U) Light Wilson Abnormal Yellow [facility] Comment on above: Order Comment: Specimen Type: URINE SPEC IMENOrdering Facility: [facility] Address: [address] [place] [address] Performed By: #### 2 4356-8 ####[facility] LABORATORYCLIA [id number] [address] LABCLIA [id number] [address] [place] Epithelial cells LM.HPF (Urine sed) [#/Area] Moderate Normal [facility] Comment on above: Order Comment: Specimen Type: URINE SPEC IMENOrdering Facility: [facility] Address: [address] [place] [address] Performed By: #### 2 4356-8 ####[facility] LABORATORYCLIA [id number] [address] LABCLIA [id number] [place] [address] [place] Glucose Test strip (U) [Mass/Vol] Negative Normal Trace, Negative [facility] Comment on above: Order Comment: Specimen Type: URINE SPEC IMENOrdering Facility: [facility] Address: [address] [place] [address] Performed By: #### 2 4356-8 ####[facility] LABORATORYCLIA [id number] [address] LABCLIA [id number] [place] [address] [place] Hemoglobin Ql (U) 3+ Abnormal Negative, Trace [facility] Comment on above: Order Comment: Specimen Type: URINE SPEC IMENOrdering Facility: [facility] Address: [address] [place] [address] Performed By: #### 2 4356-8 ####[facility] LABORATORYCLIA [id number] [address] LABCLIA [id number] [place] [address] [place] Ketones Ql (U) 2+ Abnormal Negative, Trace [facility] Comment on above: Order Comment: Specimen Type: URINE SPEC IMENOrdering Facility: [facility] Address: [address] [place] [address] Performed By: #### 2 4356-8 ####[facility] LABORATORYCLIA [id number] [address] [facility] LABCLIA [id number] [place] [address] [place] Leukocyte esterase Test strip Ql (U) 250 Ko/uL Abnormal Negative, 25 Ko/uL [facility] Comment on above: Order Comment: Specimen Type: URINE SPEC IMENOrdering Facility: [facility] Address: [address] [place] [address] Performed By: #### 2 4356-8 ####[facility] LABORATORYCLIA [id number] [address] LABCLIA [id number] [place] [address] [place] Nitrite Ql (U) Negative Normal Negative [facility] Comment on above: Order Comment: Specimen Type: URINE SPEC IMENOrdering Facility: [facility] Address: [address] [place] [address] Performed By: #### 2 4356-8 ####[facility] LABORATORYCLIA [id number] [address] LABCLIA [id number] [place] [address] [place] pH (U) 6.0 [pH] Normal 5.0-8.0 [facility] Comment on above: Order Comment: Specimen Type: URINE SPEC IMENOrdering Facility: [facility] Address: [address] [place] [address] Performed By: #### 2 4356-8 ####[facility] LABORATORYCLIA [id number] [address] LABCLIA [id number] [place] [address] [place] Protein (U) [Mass/Vol] 1+ Abnormal Trace, Negative [facility] Comment on above: Order Comment: Specimen Type: URINE SPEC IMENOrdering Facility: [facility] Address: [address] [place] [address] Performed By: #### 2 4356-8 ####[facility] LABORATORYCLIA [id number] [address] LABCLIA [id number] [place] [address] [place] RBC LM.HPF (Urine sed) [#/Area] /[HPF] Abnormal 0-3 /HPF [facility] Comment on above: Order Comment: Specimen Type: URINE SPEC IMENOrdering Facility: [facility] Address: [address] [place] [address] Performed By: #### 2 4356-8 ####[facility] LABORATORYCLIA [id number] [address] LABCLIA [id number] [address] [place] Specific gravity (U) [Rel density] 1.011 Normal 1.005-1.03 0 [facility] Comment on above: Order Comment: Specimen Type: URINE SPEC IMENOrdering Facility: [facility] Address: [address] [place] [address] Performed By: #### 2 4356-8 ####[facility] LABORATORYCLIA [id number] [address] LABCLIA [id number] [address] [place] Urobilinogen Ql (U) Normal Normal Normal [facility] Comment on above: Order Comment: Specimen Type: URINE SPEC IMENOrdering Facility: [facility] Address: [address] [place] [address] Performed By: #### 2 4356-8 ####[facility] LABORATORYCLIA [id number] [address] LABCLIA [id number] [place] [address] [place] WBC LM.HPF (Urine sed) [#/Area] /[HPF] Abnormal 0-5 /HPF [facility] Comment on above: Order Comment: Specimen Type: URINE SPEC IMENOrdering Facility: [facility] Address: [address] [place] [address] Performed By: #### 2 4356-8 ####GEORGE LABORATORYCLIA [id number] [address] STATES OF [facility] LABCLIA [id number] [address] [place] Urinalysis complete pnl Uron 08-08-2023 Urinalysis complete panel (U) COLOR: Light Wilson CLARITY: Turbid GLUCOSE, URINE: Negative BILIRUBIN, URINE: Negative KETONES, URINE: 2+ SPECIFIC GRAVITY, UR: 1.011 HEMOGLOBIN/BLOOD, UR: 3+ PH, URINE: 6.0 PROTEIN, URINE: 1+ UROBILINOGEN: Normal NITRITES: Negative LEUKEST: 250 Ko/uL WBC, URINE: >25 /HPF RBC, URINE: >25 /HPF BACTERIA: Rare SQUAMOUS EPITHELIAL CELLS: Moderate ORGANISM ID: 1 50,000-<100,000 CFU/ml Mixed microbiota No further workup Normal [facility] Comment on above: Order Comment: Specimen Type: URINE SPEC IMENOrdering Facility: [facility] Address: [address] [place] [address] Performed By: #### 2 4356-8 ####GEORGE LABORATORYCLIA [id number] [address] STATES OF [facility] LABCLIA [id number] [place] [address] [place] Basic metabolic 2000 panelon 08-07-2023 Anion gap [Moles/Vol] 12 mmol/L Normal 9-18 [facility] Comment on above: Order Comment: Specimen Type: BLOOD SPEC IMENOrdering Facility: [facility] Address: [address] [place] [address] Performed By: #### 1 9123-9, 52236-5, 2777-1 ####GEORGE LABORATORYCLIA [id number] [place] [address] [place] Calcium [Mass/Vol] 8.4 mg/dL Low 8.5-10.2 [facility] Comment on above: Order Comment: Specimen Type: BLOOD SPEC IMENOrdering Facility: [facility] Address: [address] [place] [address] Performed By: #### 1 9123-9, 34077-0, 2776- ####[facility] LABORATORYCLIA [id number] [place] [id number] [place] Chloride [Moles/Vol] 105 mmol/L Normal 97-105 [facility] Comment on above: Order Comment: Specimen Type: BLOOD SPEC IMENOrdering Facility: [facility] Address: [address] [place] [address] Performed By: #### 1 9123-9, 37889-1, 2776- ####[facility] LABORATORYCLIA [id number] [place] [id number] [place] CO2 [Moles/Vol] 22 mmol/L Normal 22-30 [facility] Comment on above: Order Comment: Specimen Type: BLOOD SPEC IMENOrdering Facility: [facility] Address: [address] [place] [address] Performed By: #### 1 9123-9, 02873-7, 2776-06 ####[facility] LABORATORYCLIA [id number] [place] [id number] [place] Creatinine [Mass/Vol] 0.61 mg/dL Normal 0.58-0.96 [facility] Comment on above: Order Comment: Specimen Type: BLOOD SPEC IMENOrdering Facility: [facility] Address: [address] [place] [address] Performed By: #### 1 9123-9, 33233-5, 2776- ####[facility] LABORATORYCLIA [id number] [place] [id number] [place] Creatinine and Glomerular filtration rate.predicted panel (S/P/Bld) 118 mL/min/1.73m??? Normal >=60 [facility] Comment on above: Order Comment: Specimen Type: BLOOD SPEC IMENOrdering Facility: [facility] Address: [address] [place] [address] Result Comment: Janet mated Glomerular Filtration Rate [...] actual GFR. Performed By: #### 1 9123-9, 84591-4, 2776-06 ####[facility] LABORATORYCLIA [id number] [place] [id number] [place] Glucose [Mass/Vol] 99 mg/dL Normal 74-99 [facility] Comment on above: Order Comment: Specimen Type: BLOOD SPEC IMENOrdering Facility: [facility] Address: [address] [place] [address] Result Comment: The [place] [employer] (ADA) provides guidance for cutoff [...] Standards of Medical Care in Diabetes 2016, [place] [employer]. Diabetes Care. 2016.39(Suppl 1). Performed By: #### 1 9123-9, 24443-0, 2776-06 ####[facility] LABORATORYCLIA [id number] [place] [id number] [place] Potassium [Moles/Vol] 3.7 mmol/L Normal 3.7-5.1 [facility] Comment on above: Order Comment: Specimen Type: BLOOD SPEC IMENOrdering Facility: [facility] Address: [address] [place] [address] Performed By: #### 1 9123-9, 20269-0, 2776- ####[facility] LABORATORYCLIA [id number] [place] [address] [place] Sodium [Moles/Vol] 139 mmol/L Normal 136-144 [facility] Comment on above: Order Comment: Specimen Type: BLOOD SPEC IMENOrdering Facility: [facility] Address: [address] [place] [address] Performed By: #### 1 9123-9, 48909-3, 2777- ####[facility] LABORATORYCLIA [id number] [place] [id number] [facility] Urea nitrogen [Mass/Vol] 3 mg/dL Low 7-21 [facility] Comment on above: Order Comment: Specimen Type: BLOOD SPEC IMENOrdering Facility: [facility] Address: [address] [place] [address] Performed By: #### 1 9123-9, 06489-8, 2777 ####[facility] LABORATORYCLIA [id number] [place] [id number] [facility] CASE MANAGEMon 08-07-2023 CASE MANAGEM HNO ID: [id number] Author: ARTUR DIAMOND RN Service: ? Author Type: Registered Nurse Type: Care Mgt Progress Note Filed: 08/07/2023 09:33 Note Text: CARE MANAGEMENT WEEKEND PLANNING NOTE POSSIBLE DISCHARGE Date/Time: TBD Disposition: home w/ family support Transport: Car per pt arrangement Other Concerns: S/p Biliopancreatic diversion w/ duodenal switch. Await return of bowel function. On Phase 1 diet. Anticipate no skilled needs at [place]. Weekend International Accounting Manager Pager #: Peyman Pizano [phone] SIGNATURE: Artur Diamond RN PATIENT NAME: Susi Borjahip DATE: August 07, 2023 TIME: 9:29 AM PAGER/CONTACT #: [phone] Normal [facility] CBC W Auto Differential pane l (Bld)on 08-07-2023 Basophils (Bld) [#/Vol] 0.49 10*3/uL High <0.11 [facility] Comment on above: Order Comment: Specimen Type: BLOOD SPEC IMENOrdering Facility: [facility] Address: [address] [place] [address] Performed By: #### 5 7021-8 ####[facility] LABORATORYCLIA [id number] [place] [id number] [place] Basophils/100 WBC (Bld) 3.0 % Normal [facility] Comment on above: Order Comment: Specimen Type: BLOOD SPEC IMENOrdering Facility: [facility] Address: [address] [place] [address] Performed By: #### 5 7021-8 ####GEORGE LABORATORYCLIA [id number] [place] [address] [place] [facility] [place] Differential cell count method Nom (Bld) Manual Normal [facility] Comment on above: Order Comment: Specimen Type: BLOOD SPEC IMENOrdering Facility: [facility] Address: [address] [place] [address] Performed By: #### 5 7021-8 ####GEORGE LABORATORYCLIA [id number] [place] [address] [place] Eosinophils (Bld) [#/Vol] 0.00 10*3/uL Normal <0.46 [facility] Comment on above: Order Comment: Specimen Type: BLOOD SPEC IMENOrdering Facility: [facility] Address: [address] [place] [address] Performed By: #### 5 7021-8 ####GEORGE LABORATORYCLIA [id number] [address] Eosinophils/100 WBC (Bld) 0.0 % Normal [facility] Comment on above: Order Comment: Specimen Type: BLOOD SPEC IMENOrdering Facility: [facility] Address: [address] [place] [address] Performed By: #### 5 7021-8 ####GEORGE LABORATORYCLIA [id number] [place] [id number] [place] Erythrocyte distribution width (RBC) [Ratio] 14.2 % Normal 11.5-15.0 [facility] Comment on above: Order Comment: Specimen Type: BLOOD SPEC IMENOrdering Facility: [facility] Address: [address] [place] [address] Performed By: #### 5 7021-8 ####GEORGE LABORATORYCLIA [id number] [place] [id number] [place] Hematocrit (Bld) [Volume fraction] 37.7 % Normal 36.0-46.0 [facility] Comment on above: Order Comment: Specimen Type: BLOOD SPEC IMENOrdering Facility: [facility] Address: [address] [place] [address] Performed By: #### 5 7021-8 ####[facility] LABORATORYCLIA [id number] [place] [id number] [place] Hemoglobin (Bld) [Mass/Vol] 11.8 g/dL Normal 11.5-15.5 [facility] Comment on above: Order Comment: Specimen Type: BLOOD SPEC IMENOrdering Facility: [facility] Address: [address] [place] [address] Performed By: #### 5 7021-8 ####[facility] LABORATORYCLIA [id number] [place] [address] [place] Lymphocytes (Bld) [#/Vol] 4.43 10*3/uL High 1.00-4.00 [facility] Comment on above: Order Comment: Specimen Type: BLOOD SPEC IMENOrdering Facility: [facility] Address: [address] [place] [address] Performed By: #### 5 7021-8 ####[facility] LABORATORYCLIA [id number] [place] [id number] [place] Lymphocytes/100 WBC (Bld) 27.0 % Normal [facility] Comment on above: Order Comment: Specimen Type: BLOOD SPEC IMENOrdering Facility: [facility] Address: [address] [place] [address] Performed By: #### 5 7021-8 ####[facility] LABORATORYCLIA [id number] [place] [id number] [place] MCH (RBC) [Entitic mass] 29.4 pg Normal 26.0-34.0 [facility] Comment on above: Order Comment: Specimen Type: BLOOD SPEC IMENOrdering Facility: [facility] Address: [address] [place] [address] Performed By: #### 5 7021-8 ####[facility] LABORATORYCLIA [id number] [place] [id number] [place] MCHC (RBC) [Mass/Vol] 31.3 g/dL Normal 30.5-36.0 [facility] Comment on above: Order Comment: Specimen Type: BLOOD SPEC IMENOrdering Facility: [facility] Address: [address] [place] [address] Performed By: #### 5 7021-8 ####[facility] LABORATORYCLIA [id number] [place] [id number] [place] MCV (RBC) [Entitic vol] 94.0 fL Normal 80.0-100.0 [facility] Comment on above: Order Comment: Specimen Type: BLOOD SPEC IMENOrdering Facility: [facility] Address: [address] [place] [address] Performed By: #### 5 7021-8 ####[facility] LABORATORYCLIA [id number] [place] [address] [place] Monocytes (Bld) [#/Vol] 1.48 10*3/uL High <0.87 [facility] Comment on above: Order Comment: Specimen Type: BLOOD SPEC IMENOrdering Facility: [facility] Address: [address] [place] [address] Performed By: #### 5 7021-8 ####[facility] LABORATORYCLIA [id number] [place] [id number] [place] Monocytes/100 WBC (Bld) 9.0 % Normal [facility] Comment on above: Order Comment: Specimen Type: BLOOD SPEC IMENOrdering Facility: [facility] Address: [address] [place] [address] Performed By: #### 5 7021-8 ####[facility] LABORATORYCLIA [id number] [place] [id number] [place] Neutrophils (Bld) [#/Vol] 10.00 10*3/uL High 1.45-7.50 [facility] Comment on above: Order Comment: Specimen Type: BLOOD SPEC IMENOrdering Facility: [facility] Address: [address] [place] [address] Performed By: #### 5 7021-8 ####GEORGE LABORATORYCLIA [id number] [place] [id number] [facility] [place] Neutrophils/100 WBC (Bld) 61.0 % Normal [facility] Comment on above: Order Comment: Specimen Type: BLOOD SPEC IMENOrdering Facility: [facility] Address: [address] [place] [address] Performed By: #### 5 7021-8 ####[facility] LABORATORYCLIA [id number] [place] [id number] [place] Nucleated RBC (Bld) [#/Vol] 10*3/uL Normal <0.01 [facility] Comment on above: Order Comment: Specimen Type: BLOOD SPEC IMENOrdering Facility: [facility] Address: [address] [place] [address] Performed By: #### 5 7021-8 ####GEORGE LABORATORYCLIA [id number] [place] [id number] [place] Nucleated RBC/100 WBC (Bld) [Ratio] 0.0 /100 WBC Normal [facility] Comment on above: Order Comment: Specimen Type: BLOOD SPEC IMENOrdering Facility: [facility] Address: [address] [place] [address] Performed By: #### 5 7021-8 ####GEORGE LABORATORYCLIA [id number] [place] [id number] [place] Platelet mean volume (Bld) [Entitic vol] 9.3 fL Normal 9.0-12.7 [facility] Comment on above: Order Comment: Specimen Type: BLOOD SPEC IMENOrdering Facility: [facility] Address: [address] [place] [address] Performed By: #### 5 7021-8 ####[facility] LABORATORYCLIA [id number] [place] [id number] [place] Platelets (Bld) [#/Vol] 409 10*3/uL High 150-400 [facility] Comment on above: Order Comment: Specimen Type: BLOOD SPEC IMENOrdering Facility: [facility] Address: [address] [place] [address] Performed By: #### 5 7021-8 ####[facility] LABORATORYCLIA [id number] [place] [address] [place] Platelets Estimate (Bld) [#/Vol] Increased Normal [facility] Comment on above: Order Comment: Specimen Type: BLOOD SPEC IMENOrdering Facility: [facility] Address: [address] [place] [address] Performed By: #### 5 7021-8 ####[facility] LABORATORYCLIA [id number] [place] [id number] [place] RBC (Bld) [#/Vol] 4.01 10*6/uL Normal 3.90-5.20 [facility] Comment on above: Order Comment: Specimen Type: BLOOD SPEC IMENOrdering Facility: [facility] Address: [address] [place] [address] Performed By: #### 5 7021-8 ####[facility] LABORATORYCLIA [id number] [place] [id number] [facility] RED CELL MORPH Reviewed: unremarkable Normal [facility] Comment on above: Order Comment: Specimen Type: BLOOD SPEC IMENOrdering Facility: [facility] Address: [address] [place] [address] Performed By: #### 5 7021-8 ####[facility] LABORATORYCLIA [id number] [place] [id number] [place] WBC (Bld) [#/Vol] 16.39 10*3/uL High 3.70-11.00 [facility] Comment on above: Order Comment: Specimen Type: BLOOD SPEC IMENOrdering Facility: [facility] Address: [address] [place] [address] Performed By: #### 5 7021-8 ####G[facility] LABORATORYCLIA [id number] [place] [id number] [place] CONSULT PROGon 08-07-2023 CONSULT PROG HNO ID: [id number] Author: BUCKY FLORES APRN.SEED TRUCKER Service: Pain Management Author Type: Nurse Practitioner [...] OBJECTIVE PERTINENT ROS: ALLERGIES Allergen Reactions Adhes. Dqky-Qhow-Mm* Rash Adhesive Tape-Silic* Rash Augmentin [Amoxicil* Diarrhea [...] Day of surgery MEDICATIONS: Epidural Medications and RISK LEAD Settings Bupivacaine 0.0625% + Fentanyl 2 mcg/mL [...] (CYMBALTA) 60 mg ORAL DAILY phenol 1 Pandora (CHLORASEPTIC) 1 Pandora MUCOUS MEMBRANE (TOPICAL MOUTH AND THROAT) q [...] INTRAVENOUS CON (more content not included)... Normal [facility] Magnesium SerPl-mCncon 08-07 Magnesium [Mass/Vol] 1.9 mg/dL Normal 1.7-2.3 [facility] Comment on above: Order Comment: Specimen Type: BLOOD SPEC IMENOrdering Facility: [facility] Address: [address] [place] [address] Performed By: #### 1 9123-9, 94459-8, 2777-1 ####G[facility] LABORATORYCLIA [id number] [place] [address] [place] Phosphate SerPl-mCncon 08-07 Phosphate [Mass/Vol] 2.3 mg/dL Low 2.7-4.8 [facility] Comment on above: Order Comment: Specimen Type: BLOOD SPEC IMENOrdering Facility: [facility] Address: [address] [place] [address] Performed By: #### 1 9123-9, 87427-3, 2777-1 ####G[facility] LABORATORYCLIA [id number] [place] [id number] [place] Basic metabolic 2000 panelon 08-06-2023 Anion gap [Moles/Vol] 12 mmol/L Normal 9-18 [facility] Comment on above: Order Comment: Specimen Type: BLOOD SPEC IMENOrdering Facility: [facility] Address: [address] [place] [id number] Performed By: #### 2 4321-2, , 2776-06 ####GEORGE LABORATORYCLIA [id number] [place] [address] [place] Calcium [Mass/Vol] 8.0 mg/dL Low 8.5-10.2 [facility] Comment on above: Order Comment: Specimen Type: BLOOD SPEC IMENOrdering Facility: [facility] Address: [address] [place] [address] Performed By: #### 2 4321-2, , 2776-06 ####[facility] LABORATORYCLIA [id number] [place] [id number] [place] Chloride [Moles/Vol] 106 mmol/L High 97-105 [facility] Comment on above: Order Comment: Specimen Type: BLOOD SPEC IMENOrdering Facility: [facility] Address: [address] [place] [address] Performed By: #### 2 432-2, , 2776-06 ####GEORGE LABORATORYCLIA [id number] [place] [id number] [place] CO2 [Moles/Vol] 23 mmol/L Normal 22-30 [facility] Comment on above: Order Comment: Specimen Type: BLOOD SPEC IMENOrdering Facility: [facility] Address: [address] [place] [address] Performed By: #### 2 4321-2, , 2776-06 ####GEORGE LABORATORYCLIA [id number] [place] [id number] [place] Creatinine [Mass/Vol] 0.69 mg/dL Normal 0.58-0.96 [facility] Comment on above: Order Comment: Specimen Type: BLOOD SPEC IMENOrdering Facility: [facility] Address: [address] [place] [address] Performed By: #### 2 4321-2, , 2776-06 ####GEORGE LABORATORYCLIA [id number] [place] [id number] [place] Creatinine and Glomerular filtration rate.predicted panel (S/P/Bld) 114 mL/min/1.73m??? Normal >=60 [facility] Comment on above: Order Comment: Specimen Type: BLOOD SPEC IMENOrdering Facility: [facility] Address: [address] [place] [address] Result Comment: Janet mated Glomerular Filtration Rate [...] Performed By: #### 2 4321-2, , 2776-06 ####GARD[facility] LABORATORYCLIA [id number] [place] [address] [place] Glucose [Mass/Vol] 83 mg/dL Normal 74-99 [facility] Comment on above: Order Comment: Specimen Type: BLOOD SPEC IMENOrdering Facility: [facility] Address: [address] [place] [address] Result Comment: The [place] [employer] (ADA) provides guidance for cutoff [...] Standards of Medical Care in Diabetes 2016, [place] [employer]. Diabetes Care. 2016.39(Suppl 1). Performed By: #### 2 4321-2, , 2776-06 ####[facility] LABORATORYCLIA [id number] [place] [id number] [place] Potassium [Moles/Vol] 3.8 mmol/L Normal 3.7-5.1 [facility] Comment on above: Order Comment: Specimen Type: BLOOD SPEC IMENOrdering Facility: [facility] Address: [address] [place] [address] Performed By: #### 2 4321-2, , 2776-06 ####GEORGE LABORATORYCLIA [id number] [place] [id number] [place] Sodium [Moles/Vol] 141 mmol/L Normal 136-144 [facility] Comment on above: Order Comment: Specimen Type: BLOOD SPEC IMENOrdering Facility: [facility] Address: [address] [place] [address] Performed By: #### 2 4321-2, , 2776-06 ####GEORGE LABORATORYCLIA [id number] [place] [address] [place] Urea nitrogen [Mass/Vol] 5 mg/dL Low 7-21 [facility] Comment on above: Order Comment: Specimen Type: BLOOD SPEC IMENOrdering Facility: [facility] Address: [address] [place] [address] Performed By: #### 2 4321-2, , 2776-06 ####GEORGE LABORATORYCLIA [id number] [place] [id number] [place] CBC W Auto Differential pane l (Bld)on 08-06-2023 Basophils (Bld) [#/Vol] 0.37 10*3/uL High <0.11 [facility] Comment on above: Order Comment: Specimen Type: BLOOD SPEC IMENOrdering Facility: [facility] Address: [address] [place] [address] Performed By: #### 5 7021-8 ####GEORGE LABORATORYCLIA [id number] [place] [id number] [place] Basophils/100 WBC (Bld) 2.0 % Normal [facility] Comment on above: Order Comment: Specimen Type: BLOOD SPEC IMENOrdering Facility: [facility] Address: [address] [place] [address] Performed By: #### 5 7021-8 ####GEORGE LABORATORYCLIA [id number] [address] [place] Differential cell count method Nom (Bld) Manual Normal [facility] Comment on above: Order Comment: Specimen Type: BLOOD SPEC IMENOrdering Facility: [facility] Address: [address] [place] [address] Performed By: #### 5 7021-8 ####GEORGE LABORATORYCLIA [id number] [place] [address] [place] Eosinophils (Bld) [#/Vol] 0.74 10*3/uL High <0.46 [facility] Comment on above: Order Comment: Specimen Type: BLOOD SPEC IMENOrdering Facility: [facility] Address: [address] [place] [address] Performed By: #### 5 7021-8 ####GEORGE LABORATORYCLIA [id number] [address] [place] Eosinophils/100 WBC (Bld) 4.0 % Normal [facility] Comment on above: Order Comment: Specimen Type: BLOOD SPEC IMENOrdering Facility: [facility] Address: [address] [place] [address] Performed By: #### 5 7021-8 ####GEORGE LABORATORYCLIA [id number] [place] Erythrocyte distribution width (RBC) [Ratio] 14.6 % Normal 11.5-15.0 [facility] Comment on above: Order Comment: Specimen Type: BLOOD SPEC IMENOrdering Facility: [facility] Address: [address] [place] [address] Performed By: #### 5 7021-8 ####GEORGE LABORATORYCLIA [id number] [place] [id number] [place] Hematocrit (Bld) [Volume fraction] 38.0 % Normal 36.0-46.0 [facility] Comment on above: Order Comment: Specimen Type: BLOOD SPEC IMENOrdering Facility: [facility] Address: [address] [place] [address] Performed By: #### 5 7021-8 ####GEORGE LABORATORYCLIA [id number] [place] [id number] [place] Hemoglobin (Bld) [Mass/Vol] 11.7 g/dL Normal 11.5-15.5 [facility] Comment on above: Order Comment: Specimen Type: BLOOD SPEC IMENOrdering Facility: [facility] Address: [address] [place] [address] Performed By: #### 5 7021-8 ####[facility] LABORATORYCLIA [id number] [place] [address] [place] Lymphocytes (Bld) [#/Vol] 4.05 10*3/uL High 1.00-4.00 [facility] Comment on above: Order Comment: Specimen Type: BLOOD SPEC IMENOrdering Facility: [facility] Address: [address] [place] [address] Performed By: #### 5 7021-8 ####GEORGE LABORATORYCLIA [id number] [address] [place] Lymphocytes/100 WBC (Bld) 22.0 % Normal [facility] Comment on above: Order Comment: Specimen Type: BLOOD SPEC IMENOrdering Facility: [facility] Address: [address] [place] [address] Performed By: #### 5 7021-8 ####GEORGE LABORATORYCLIA [id number] [place] [address] [place] MCH (RBC) [Entitic mass] 29.5 pg Normal 26.0-34.0 [facility] Comment on above: Order Comment: Specimen Type: BLOOD SPEC IMENOrdering Facility: [facility] Address: [address] [place] [address] Performed By: #### 5 7021-8 ####[facility] LABORATORYCLIA [id number] [place] [id number] [place] MCHC (RBC) [Mass/Vol] 30.8 g/dL Normal 30.5-36.0 [facility] Comment on above: Order Comment: Specimen Type: BLOOD SPEC IMENOrdering Facility: [facility] Address: [address] [place], [place] [address] Performed By: #### 5 7021-8 ####[facility] LABORATORYCLIA [id number] [place] [id number] [place] MCV (RBC) [Entitic vol] 96.0 fL Normal 80.0-100.0 [facility] Comment on above: Order Comment: Specimen Type: BLOOD SPEC IMENOrdering Facility: [facility] Address: [address] [place] [address] Performed By: #### 5 7021-8 ####[facility] LABORATORYCLIA [id number] [place] [id number] [place] Monocytes (Bld) [#/Vol] 1.84 10*3/uL High <0.87 [facility] Comment on above: Order Comment: Specimen Type: BLOOD SPEC IMENOrdering Facility: [facility] Address: [address] [place] [address] Performed By: #### 5 7021-8 ####[facility] LABORATORYCLIA [id number] [place] [id number] [place] Monocytes/100 WBC (Bld) 10.0 % Normal [facility] Comment on above: Order Comment: Specimen Type: BLOOD SPEC IMENOrdering Facility: [facility] Address: [address] [place] [address] Performed By: #### 5 7021-8 ####[facility] LABORATORYCLIA [id number] [place] [id number] [place] Neutrophils (Bld) [#/Vol] 11.42 10*3/uL High 1.45-7.50 [facility] Comment on above: Order Comment: Specimen Type: BLOOD SPEC IMENOrdering Facility: [facility] Address: [address] [place] [address] Performed By: #### 5 7021-8 ####[facility] LABORATORYCLIA [id number] [place] [id number] [place] Neutrophils/100 WBC (Bld) 62.0 % Normal [facility] Comment on above: Order Comment: Specimen Type: BLOOD SPEC IMENOrdering Facility: [facility] Address: [address] [place] [address] Performed By: #### 5 7021-8 ####[facility] LABORATORYCLIA [id number] [place] [id number] [place] Nucleated RBC (Bld) [#/Vol] 10*3/uL Normal <0.01 [facility] Comment on above: Order Comment: Specimen Type: BLOOD SPEC IMENOrdering Facility: [facility] Address: [address] [place] [address] Performed By: #### 5 7021-8 ####[facility] LABORATORYCLIA [id number] [place] [id number] [place] Nucleated RBC/100 WBC (Bld) [Ratio] 0.0 /100 WBC Normal [facility] Comment on above: Order Comment: Specimen Type: BLOOD SPEC IMENOrdering Facility: [facility] Address: [address] [place] [address] Performed By: #### 5 7021-8 ####[facility] LABORATORYCLIA [id number] [place] [address] [place] Platelet mean volume (Bld) [Entitic vol] 9.4 fL Normal 9.0-12.7 [facility] Comment on above: Order Comment: Specimen Type: BLOOD SPEC IMENOrdering Facility: [facility] Address: [address] [place] [address] Performed By: #### 5 7021-8 ####[facility] LABORATORYCLIA [id number] [place] [id number] [place] Platelets (Bld) [#/Vol] 415 10*3/uL High 150-400 [facility] Comment on above: Order Comment: Specimen Type: BLOOD SPEC IMENOrdering Facility: [facility] Address: [facility] [place] [address] Performed By: #### 5 7021-8 ####[facility] LABORATORYCLIA [id number] [place] [id number] [place] Platelets Estimate (Bld) [#/Vol] Increased Normal [facility] Comment on above: Order Comment: Specimen Type: BLOOD SPEC IMENOrdering Facility: [facility] Address: [address] [place] [address] Performed By: #### 5 7021-8 ####[facility] LABORATORYCLIA [id number] [place] [id number] [facility] RBC (Bld) [#/Vol] 3.96 10*6/uL Normal 3.90-5.20 [facility] Comment on above: Order Comment: Specimen Type: BLOOD SPEC IMENOrdering Facility: [facility] Address: [address] [place] [address] Performed By: #### 5 7021-8 ####[facility] LABORATORYCLIA [id number] [place] [id number] [facility] RED CELL MORPH Reviewed: unremarkable Normal [facility] Comment on above: Order Comment: Specimen Type: BLOOD SPEC IMENOrdering Facility: [facility] Address: [address] [place] [address] Performed By: #### 5 7021-8 ####GARD[facility] LABORATORYCLIA [id number] [place] [id number] [facility] [place] WBC (Bld) [#/Vol] 18.42 10*3/uL High 3.70-11.00 [facility] Comment on above: Order Comment: Specimen Type: BLOOD SPEC IMENOrdering Facility: [facility] Address: [address] [place] [address] Performed By: #### 5 7021-8 ####G[facility] LABORATORYCLIA [id number] [place] [id number] [facility] CONSULT PROGon 08-06-2023 CONSULT PROG HNO ID: [id number] Author: BUCKY FLORES APRN.SEED TRUCKER Service: Pain Management Author Type: Nurse Practitioner [...] OBJECTIVE PERTINENT ROS: ALLERGIES Allergen Reactions Adhes. Xlvu-Ekzx-Od* Rash Adhesive Tape-Silic* Rash Augmentin [Amoxicil* Diarrhea [...] Day of surgery MEDICATIONS: Epidural Medications and RISK LEAD Settings Bupivacaine 0.0625% + Fentanyl 2 mcg/mL [...] (CYMBALTA) 60 mg ORAL DAILY phenol 1 Pandora (CHLORASEPTIC) 1 Pandora MUCOUS MEMBRANE (TOPICAL MOUTH AND THROAT) q [...] senna-docusate 8.6-50 (more content not included)... Normal [facility] Magnesium Banneron 08-06 Magnesium [Mass/Vol] 2.0 mg/dL Normal 1.7-2.3 [facility] Comment on above: Order Comment: Specimen Type: BLOOD SPEC IMENOrdering Facility: [facility] Address: [address] [place] [address] Performed By: #### 2 4321-2, 83088-1, 2776-06 ####GEORGE LABORATORYCLIA [id number] [place] [address] [place] NURSING PROGon 08-06-2023 NURSING PROG HNO ID: [id number] Author: BUCKY JOSHI, RN Service: Nursing Author Type: Registered Nurse Type: Nursing Progress Note Filed: 08/06/2023 18:19 Note Text: Other: 1410: Pt ambulated POD with standby assist. HR 150-170s at this time, returned to normal at rest. Josee MARTINEZ on unit and aware. Normal [facility] Phosphate [facility] 08-06 Phosphate [Mass/Vol] 3.0 mg/dL Normal 2.7-4.8 [facility] Comment on above: Order Comment: Specimen Type: BLOOD SPEC IMENOrdering Facility: [facility] Address: [address] [place] [address] Performed By: #### 2 4321-2, , 2776-06 ####GEORGE LABORATORYCLIA [id number] [place] [id number] [place] Basic metabolic 2000 panelon 08-05-2023 Anion gap [Moles/Vol] 10 mmol/L Normal 9-18 [facility] Comment on above: Order Comment: Specimen Type: BLOOD SPEC IMENOrdering Facility: [facility] Address: [address] [place] [address] Performed By: #### 2 4321-2, HSTNT ####[facility] LABORATORYCLIA [id number] [place] [id number] [place] Calcium [Mass/Vol] 7.8 mg/dL Low 8.5-10.2 [facility] Comment on above: Order Comment: Specimen Type: BLOOD SPEC IMENOrdering Facility: [facility] Address: [address] [place] [address] Performed By: #### 2 4321-2, HSTNT ####[facility] LABORATORYCLIA [id number] [place] [id number] [place] Chloride [Moles/Vol] 105 mmol/L Normal 97-105 [facility] Comment on above: Order Comment: Specimen Type: BLOOD SPEC IMENOrdering Facility: [facility] Address: [address] [place] [address] Performed By: #### 2 4321-2, HSTNT ####[facility] LABORATORYCLIA [id number] [place] [id number] [place] CO2 [Moles/Vol] 24 mmol/L Normal 22-30 [facility] Comment on above: Order Comment: Specimen Type: BLOOD SPEC IMENOrdering Facility: [facility] Address: [address] [place] [address] Performed By: #### 2 4321-2, HSTNT ####GEORGE LABORATORYCLIA [id number] [place] [id number] [place] Creatinine [Mass/Vol] 0.77 mg/dL Normal 0.58-0.96 [facility] Comment on above: Order Comment: Specimen Type: BLOOD SPEC IMENOrdering Facility: [facility] Address: [address] [place] [address] Performed By: #### 2 4321-2, HSTNT ####GEORGE LABORATORYCLIA [id number] [place] [id number] [place] Creatinine and Glomerular filtration rate.predicted panel (S/P/Bld) 101 mL/min/1.73m??? Normal >=60 [facility] Comment on above: Order Comment: Specimen Type: BLOOD SPEC IMENOrdering Facility: [facility] Address: [address] [place] [address] Result Comment: Janet mated Glomerular Filtration Rate [...] GFR. Performed By: #### 2 4321-2, HSTNT ####[facility] LABORATORYCLIA [id number] [place] [address] [place] Glucose [Mass/Vol] 93 mg/dL Normal 74-99 [facility] Comment on above: Order Comment: Specimen Type: BLOOD SPEC IMENOrdering Facility: [facility] Address: [address] [place] [address] Result Comment: The [place] [employer] (ADA) provides guidance for cutoff [...] Standards of Medical Care in Diabetes 2016, [place] [employer]. Diabetes Care. 2016.39(Suppl 1). Performed By: #### 2 4321-2, HSTNT ####GARD[facility] LABORATORYCLIA [id number] [place] [id number] [place] Potassium [Moles/Vol] 3.4 mmol/L Low 3.7-5.1 [facility] Comment on above: Order Comment: Specimen Type: BLOOD SPEC IMENOrdering Facility: [facility] Address: [address] [place] [address] Performed By: #### 2 4321-2, HSTNT ####GARD[facility] LABORATORYCLIA [id number] [place] [address] [place] Sodium [Moles/Vol] 139 mmol/L Normal 136-144 [facility] Comment on above: Order Comment: Specimen Type: BLOOD SPEC IMENOrdering Facility: [facility] Address: [address] [place] [address] Performed By: #### 2 4321-2, HSTNT ####GARD[facility] LABORATORYCLIA [id number] [place] [address] [place] Urea nitrogen [Mass/Vol] 7 mg/dL Normal 7-21 [facility] Comment on above: Order Comment: Specimen Type: BLOOD SPEC IMENOrdering Facility: [facility] Address: [address] [place] [address] Performed By: #### 2 4321-2, HSTNT ####[facility] LABORATORYCLIA [id number] [place] [address] [place] CBC W Auto Differential pane l (Bld)on 08-05-2023 Basophils (Bld) [#/Vol] 0.15 10*3/uL High <0.11 [facility] Comment on above: Order Comment: Specimen Type: BLOOD SPEC IMENOrdering Facility: [facility] Address: [address] [place] [address] Performed By: #### 5 7021-8 ####GEORGE LABORATORYCLIA [id number] [place] [address] [place] Basophils/100 WBC (Bld) 1.0 % Normal [facility] Comment on above: Order Comment: Specimen Type: BLOOD SPEC IMENOrdering Facility: [facility] Address: [address] [place] [address] Performed By: #### 5 7021-8 ####[facility] LABORATORYCLIA [id number] [place] [address] [place] Differential cell count method Nom (Bld) Manual Normal [facility] Comment on above: Order Comment: Specimen Type: BLOOD SPEC IMENOrdering Facility: [facility] Address: [address] [place] [address] Performed By: #### 5 7021-8 ####GEORGE LABORATORYCLIA [id number] [place] [address] [place] Eosinophils (Bld) [#/Vol] 0.15 10*3/uL Normal <0.46 [facility] Comment on above: Order Comment: Specimen Type: BLOOD SPEC IMENOrdering Facility: [facility] Address: [address] [place] [address] Performed By: #### 5 7021-8 ####GEORGE LABORATORYCLIA [id number] [address] [place] Eosinophils/100 WBC (Bld) 1.0 % Normal [facility] Comment on above: Order Comment: Specimen Type: BLOOD SPEC IMENOrdering Facility: [facility] Address: [address] [place] [address] Performed By: #### 5 7021-8 ####GEORGE LABORATORYCLIA [id number] [address] [place] Erythrocyte distribution width (RBC) [Ratio] 14.6 % Normal 11.5-15.0 [facility] Comment on above: Order Comment: Specimen Type: BLOOD SPEC IMENOrdering Facility: [facility] Address: [address] [place] [address] Performed By: #### 5 7021-8 ####GEORGE LABORATORYCLIA [id number] [place] [address] [place] Hematocrit (Bld) [Volume fraction] 38.5 % Normal 36.0-46.0 [facility] Comment on above: Order Comment: Specimen Type: BLOOD SPEC IMENOrdering Facility: [facility] Address: [address] [place] [address] Performed By: #### 5 7021-8 ####GEORGE LABORATORYCLIA [id number] [place] [address] [place] Hemoglobin (Bld) [Mass/Vol] 11.9 g/dL Normal 11.5-15.5 [facility] Comment on above: Order Comment: Specimen Type: BLOOD SPEC IMENOrdering Facility: [facility] Address: [address] [place] [address] Performed By: #### 5 7021-8 ####G[facility] LABORATORYCLIA [id number] [place] [address] [place] Lymphocytes (Bld) [#/Vol] 2.79 10*3/uL Normal 1.00-4.00 [facility] Comment on above: Order Comment: Specimen Type: BLOOD SPEC IMENOrdering Facility: [facility] Address: [address] [place] [address] Performed By: #### 5 7021-8 ####[facility] LABORATORYCLIA [id number] [address] Lymphocytes/100 WBC (Bld) 19.0 % Normal [facility] Comment on above: Order Comment: Specimen Type: BLOOD SPEC IMENOrdering Facility: [facility] Address: [address] [place] [address] Performed By: #### 5 7021-8 ####[facility] LABORATORYCLIA [id number] [place] [address] [place] MCH (RBC) [Entitic mass] 29.2 pg Normal 26.0-34.0 [facility] Comment on above: Order Comment: Specimen Type: BLOOD SPEC IMENOrdering Facility: [facility] Address: [address] [place] [address] Performed By: #### 5 7021-8 ####[facility] LABORATORYCLIA [id number] [place] [id number] [place] MCHC (RBC) [Mass/Vol] 30.9 g/dL Normal 30.5-36.0 [facility] Comment on above: Order Comment: Specimen Type: BLOOD SPEC IMENOrdering Facility: [facility] Address: [address] [place] [address] Performed By: #### 5 7021-8 ####[facility] LABORATORYCLIA [id number] [address] [place] MCV (RBC) [Entitic vol] 94.6 fL Normal 80.0-100.0 [facility] Comment on above: Order Comment: Specimen Type: BLOOD SPEC IMENOrdering Facility: [facility] Address: [address] [place] [address] Performed By: #### 5 7021-8 ####[facility] LABORATORYCLIA [id number] [place] [id number] [place] Monocytes (Bld) [#/Vol] 0.59 10*3/uL Normal <0.87 [facility] Comment on above: Order Comment: Specimen Type: BLOOD SPEC IMENOrdering Facility: [facility] Address: [address] [place] [address] Performed By: #### 5 7021-8 ####[facility] LABORATORYCLIA [id number] [place] [id number] [place] Monocytes/100 WBC (Bld) 4.0 % Normal [facility] Comment on above: Order Comment: Specimen Type: BLOOD SPEC IMENOrdering Facility: [facility] Address: [address] [place] [address] Performed By: #### 5 7021-8 ####[facility] LABORATORYCLIA [id number] [place] [id number] [place] Neutrophils (Bld) [#/Vol] 11.00 10*3/uL High 1.45-7.50 [facility] Comment on above: Order Comment: Specimen Type: BLOOD SPEC IMENOrdering Facility: [facility] Address: [address] [place] [address] Performed By: #### 5 7021-8 ####[facility] LABORATORYCLIA [id number] [place] [id number] [place] Neutrophils/100 WBC (Bld) 75.0 % Normal [facility] Comment on above: Order Comment: Specimen Type: BLOOD SPEC IMENOrdering Facility: [facility] Address: [address] [place] [address] Performed By: #### 5 7021-8 ####[facility] LABORATORYCLIA [id number] [place] [address] [place] Nucleated RBC (Bld) [#/Vol] 10*3/uL Normal <0.01 [facility] Comment on above: Order Comment: Specimen Type: BLOOD SPEC IMENOrdering Facility: [facility] Address: [address] [place] [address] Performed By: #### 5 7021-8 ####GEORGE LABORATORYCLIA [id number] [place] [id number] [place] Nucleated RBC/100 WBC (Bld) [Ratio] 0.0 /100 WBC Normal [facility] Comment on above: Order Comment: Specimen Type: BLOOD SPEC IMENOrdering Facility: [facility] Address: [address] [place] [address] Performed By: #### 5 7021-8 ####GEORGE LABORATORYCLIA [id number] [place] [address] [place] Platelet mean volume (Bld) [Entitic vol] 9.2 fL Normal 9.0-12.7 [facility] Comment on above: Order Comment: Specimen Type: BLOOD SPEC IMENOrdering Facility: [facility] Address: [address] [place] [address] Performed By: #### 5 7021-8 ####GEORGE LABORATORYCLIA [id number] [place] [address] [place] Platelets (Bld) [#/Vol] 431 10*3/uL High 150-400 [facility] Comment on above: Order Comment: Specimen Type: BLOOD SPEC IMENOrdering Facility: [facility] Address: [address] [place] [address] Performed By: #### 5 7021-8 ####GEORGE LABORATORYCLIA [id number] [place] [id number] [place] Platelets Estimate (Bld) [#/Vol] Increased Normal [facility] Comment on above: Order Comment: Specimen Type: BLOOD SPEC IMENOrdering Facility: [facility] Address: [address] [place] [address] Performed By: #### 5 7021-8 ####GARD[facility] LABORATORYCLIA [id number] [address] STATES [facility] RBC (Bld) [#/Vol] 4.07 10*6/uL Normal 3.90-5.20 [facility] Comment on above: Order Comment: Specimen Type: BLOOD SPEC IMENOrdering Facility: [facility] Address: [address] [place] [address] Performed By: #### 5 7021-8 ####[facility] LABORATORYCLIA [id number] [address] [place] Reviewed: unremarkable Normal [facility] Comment on above: Order Comment: Specimen Type: BLOOD SPEC IMENOrdering Facility: [facility] Address: [address] [place] [address] Performed By: #### 5 7021-8 ####[facility] LABORATORYCLIA [id number] [place] [address] [place] WBC (Bld) [#/Vol] 14.67 10*3/uL High 3.70-11.00 [facility] Comment on above: Order Comment: Specimen Type: BLOOD SPEC IMENOrdering Facility: [facility] Address: [address] [place] [address] Performed By: #### 5 7021-8 ####G[facility] LABORATORYCLIA [id number] [address] CONSULT PROGon 08-05-2023 CONSULT PROG HNO ID: [id number] Author: BRIE ROJO APRN.SEED TRUCKER Service: Pain Management Author Type: Nurse Practitioner [...] OBJECTIVE PERTINENT ROS: ALLERGIES Allergen Reactions Adhes. Uyps-Agax-Lk* Rash Adhesive Tape-Silic* Rash Augmentin [Amoxicil* Diarrhea Keflex [Cephalexin] Rash, Itching Penicillins Hives Ultram [Tramadol Hc* Itching Information retrieved from Allergy section. Is the patient intubated and sedated? No. Numbness?: No Weakness?: No Nausea?: No Vomitting?: No Pruritis?: No Back pain?: No Headache?: No Sedation?: No Confusion/Delirium?: No Other: none Epidural Location: Thoracic Epidural catheter placed: Day of surgery MEDICATIONS: Epidural Medications and RISK LEAD Settings Bupivacaine 0.0625% + Fentanyl 2 mcg/mL [...] (CYMBALTA) 60 mg ORAL DAILY phenol 1 Pandora (CHLORASEPTIC) 1 Pandora MUCOUS MEMBRANE (TOPICAL MOUTH AND THROAT) q [...] SUBCUTANEOUS q (more content not included)... Normal [facility] HIGH SENSITIVITY TROPONIN To n 08-05-2023 Troponin T.cardiac High sensitivity method [Mass/Vol] <6 Normal <12 [facility] Comment on above: Order Comment: Specimen Type: BLOOD SPEC IMENOrdering Facility: [facility] Address: [address] [place], [place] [address] [address] Result Comment: When assessing risk for acute [...] MACE. Performed By: #### 2 4321-2, HSTNT ####[facility] LABORATORYCLIA [id number] [address] NURSING PROGon 08-05-2023 NURSING PROG HNO ID: [id number] Author: DIANA PATHAK, SUSAN Service: Radiology Author Type: Registered Nurse Type: Nursing Progress Note Filed: 08/05/2023 11:42 Note Text: Nursing Progress Note Patient Name: Susi Ortiz Patient Location: [place] [address] [address] Daily Note: 1100: Called to floor for difficult IV access. #22g 2 inch IV started to right FA under US guidance. Flushes well with brisk blood return. This note was completed by: Diana Pathak [facility] NURSING PROG HNO ID: [id number] Author: KIRA VANCE RN Service: ? Author [...] access at bedside and placed peripheral IV. [facility] PT EDon 08-05-2023 PT ED HNO ID: [id number] Author: TASNEEM GOOD RD Service: NST-Nutrition Support [...] August 05, 2023 TIME: 12:20 PM PAGER: [facility] ANES PRE-OPon 08-04-2023 ANES PRE-OP HNO ID: [id number] Author: AMANDA ALCANTAR DO Service: Anesthesiology Author [...] - montelukast (SINGULA (more content not included)... [facility] BRIEF OP NOTon 08-04-2023 BRIEF OP NOT HNO ID: [id number] Author: JOE GRANDA MD Service: General Surgery Author Type: Physician Type: Brief Op Note Filed: 08/04/2023 15:27 Note Text: BRIEF OPERATIVE NOTE [facility] LOG ID: [id number] SURGERY/PROCEDURE DATE: 08/04/2023 INCISION/PROCEDURE START TIME: 9:39 AM INCISION CLOSE/PROCEDURE END TIME: 2:39 PM SURGEON(S) AND THREADER(S): Surgeon(s) and Role: * Joe Granda MD [...] DATE: August 04, 2023 TIME: 3:01 PM [id number] Joe Granda MD [facility] Basic metabolic 2000 panelon 08-04-2023 Anion gap [Moles/Vol] 13 mmol/L Normal -18 [facility] Comment on above: Order Comment: Specimen Type: BLOOD SPEC IMENOrdering Facility: [facility] Address: [address] [place] [address] Performed By: #### 1 9123-9, 84436-2, 2776-06 ####GEORGE LABORATORYCLIA [id number] [place] [address] [place] Calcium [Mass/Vol] 8.5 mg/dL Normal 8.5-10.2 [facility] Comment on above: Order Comment: Specimen Type: BLOOD SPEC IMENOrdering Facility: [facility] Address: [address] [place] [address] Performed By: #### 1 9123-9, 96843-3, 2776-06 ####GEORGE LABORATORYCLIA [id number] [place] [id number] [place] Chloride [Moles/Vol] 101 mmol/L Normal 97-105 [facility] Comment on above: Order Comment: Specimen Type: BLOOD SPEC IMENOrdering Facility: [facility] Address: [address] [address] Performed By: #### 1 9123-9, 12870-7, 2776-06 ####GEORGE LABORATORYCLIA [id number] [place] [id number] [place] CO2 [Moles/Vol] 20 mmol/L Low 22-30 [facility] Comment on above: Order Comment: Specimen Type: BLOOD SPEC IMENOrdering Facility: [facility] Address: [address] [place] [address] Performed By: #### 1 9123-9, 99531-9, 2776-06 ####[facility] LABORATORYCLIA [id number] [place] [id number] [place] Creatinine [Mass/Vol] 0.69 mg/dL Normal 0.58-0.96 [facility] Comment on above: Order Comment: Specimen Type: BLOOD SPEC IMENOrdering Facility: [facility] Address: [address] [place] [address] Performed By: #### 1 9123-9, 81289-6, 2776- ####[facility]ORGE LABORATORYCLIA [id number] [place] [id number] [place] Creatinine and Glomerular filtration rate.predicted panel (S/P/Bld) 114 mL/min/1.73m??? Normal >=60 [facility] Comment on above: Order Comment: Specimen Type: BLOOD SPEC IMENOrdering Facility: [facility] Address: [address] [place] [address] Result Comment: Janet mated Glomerular Filtration Rate [...] actual GFR. Performed By: #### 1 9123-9, 32658-2, 2777- ####[facility] LABORATORYCLIA [id number] [place] [id number] [place] Glucose [Mass/Vol] 137 mg/dL High 74-99 [facility] Comment on above: Order Comment: Specimen Type: BLOOD SPEC IMENOrdering Facility: [facility] Address: [address] [place] [address] Result Comment: The [place] [employer] (ADA) provides guidance for cutoff [...] Standards of Medical Care in Diabetes 2016, [place] [employer]. Diabetes Care. 2016.39(Suppl 1). Performed By: #### 1 9123-9, 30003-5, 2777- ####[facility] LABORATORYCLIA [id number] [place] [id number] [place] Potassium [Moles/Vol] 5.1 mmol/L Normal 3.7-5.1 [facility] Comment on above: Order Comment: Specimen Type: BLOOD SPEC IMENOrdering Facility: [facility] Address: [address] [place] [address] Performed By: #### 1 9123-9, 64007-0, 2776- ####GEORGE LABORATORYCLIA [id number] [place] [id number] [place] Sodium [Moles/Vol] 134 mmol/L Low 136-144 [facility] Comment on above: Order Comment: Specimen Type: BLOOD SPEC IMENOrdering Facility: [facility] Address: [address] [place] [address] Performed By: #### 1 9123-9, 81533-3, 2776-06 ####[facility] LABORATORYCLIA [id number] [place] [address] [place] Urea nitrogen [Mass/Vol] 7 mg/dL Normal 7-21 [facility] Comment on above: Order Comment: Specimen Type: BLOOD SPEC IMENOrdering Facility: [facility] Address: [address] [place] [address] Performed By: #### 1 9123-9, 90239-6, 2776-06 ####GEORGE LABORATORYCLIA [id number] [place] [address] [place] CBC W Auto Differential pane l (Bld)on 08-04-2023 Basophils (Bld) [#/Vol] 0.06 10*3/uL Normal <0.11 [facility] Comment on above: Order Comment: Specimen Type: BLOOD SPEC IMENOrdering Facility: [facility] Address: [address] [place] [address] Performed By: #### 5 7021-8 ####[facility] LABORATORYCLIA [id number] [place] [id number] [place] Basophils/100 WBC (Bld) 0.3 % Normal [facility] Comment on above: Order Comment: Specimen Type: BLOOD SPEC IMENOrdering Facility: [facility] Address: [address] [place] [address] Performed By: #### 5 7021-8 ####[facility] LABORATORYCLIA [id number] [place] [id number] [place] Differential cell count method Nom (Bld) Auto Normal [facility] Comment on above: Order Comment: Specimen Type: BLOOD SPEC IMENOrdering Facility: [facility] Address: [address] [place] [address] Performed By: #### 5 7021-8 ####[facility] LABORATORYCLIA [id number] [place] [address] [place] Eosinophils (Bld) [#/Vol] 0.07 10*3/uL Normal <0.46 [facility] Comment on above: Order Comment: Specimen Type: BLOOD SPEC IMENOrdering Facility: [facility] Address: [address] [place] [address] Performed By: #### 5 7021-8 ####GEORGE LABORATORYCLIA [id number] [address] [place] Eosinophils/100 WBC (Bld) 0.4 % Normal [facility] Comment on above: Order Comment: Specimen Type: BLOOD SPEC IMENOrdering Facility: [facility] Address: [address] [place] [address] Performed By: #### 5 7021-8 ####GEORGE LABORATORYCLIA [id number] [address] [place] Erythrocyte distribution width (RBC) [Ratio] 14.2 % Normal 11.5-15.0 [facility] Comment on above: Order Comment: Specimen Type: BLOOD SPEC IMENOrdering Facility: [facility] Address: [address] [place] [address] Performed By: #### 5 7021-8 ####GEORGE LABORATORYCLIA [id number] [address] [place] Hematocrit (Bld) [Volume fraction] 40.3 % Normal 36.0-46.0 [facility] Comment on above: Order Comment: Specimen Type: BLOOD SPEC IMENOrdering Facility: [facility] Address: [address] [place] [address] Performed By: #### 5 7021-8 ####[facility] LABORATORYCLIA [id number] [place] [id number] [place] Hemoglobin (Bld) [Mass/Vol] 13.0 g/dL Normal 11.5-15.5 [facility] Comment on above: Order Comment: Specimen Type: BLOOD SPEC IMENOrdering Facility: [facility] Address: [address] [place] [address] Performed By: #### 5 7021-8 ####GEORGE LABORATORYCLIA [id number] [place] [id number] [place] Immature granulocytes (Bld) [#/Vol] 0.05 10*3/uL Normal <0.10 [facility] Comment on above: Order Comment: Specimen Type: BLOOD SPEC IMENOrdering Facility: [facility] Address: [address] [place] [address] Performed By: #### 5 7021-8 ####[facility] LABORATORYCLIA [id number] [place] [address] [place] Immature granulocytes/100 WBC (Bld) 0.3 % Normal [facility] Comment on above: Order Comment: Specimen Type: BLOOD SPEC IMENOrdering Facility: [facility] Address: [address] [place] [address] Performed By: #### 5 7021-8 ####GEORGE LABORATORYCLIA [id number] [place] [id number] [place] Lymphocytes (Bld) [#/Vol] 1.82 10*3/uL Normal 1.00-4.00 [facility] Comment on above: Order Comment: Specimen Type: BLOOD SPEC IMENOrdering Facility: [facility] Address: [address] [place] [address] Performed By: #### 5 7021-8 ####[facility] LABORATORYCLIA [id number] [place] [id number] [place] Lymphocytes/100 WBC (Bld) 9.7 % Normal [facility] Comment on above: Order Comment: Specimen Type: BLOOD SPEC IMENOrdering Facility: [facility] Address: [address] [place] [address] Performed By: #### 5 7021-8 ####[facility] LABORATORYCLIA [id number] [address] MCH (RBC) [Entitic mass] 29.4 pg Normal 26.0-34.0 [facility] Comment on above: Order Comment: Specimen Type: BLOOD SPEC IMENOrdering Facility: [facility] Address: [address] [place] [address] Performed By: #### 5 7021-8 ####[facility] LABORATORYCLIA [id number] [address] MCHC (RBC) [Mass/Vol] 32.3 g/dL Normal 30.5-36.0 [facility] Comment on above: Order Comment: Specimen Type: BLOOD SPEC IMENOrdering Facility: [facility] Address: [address] [place] [address] Performed By: #### 5 7021-8 ####[facility] LABORATORYCLIA [id number] [address] [place] MCV (RBC) [Entitic vol] 91.2 fL Normal 80.0-100.0 [facility] Comment on above: Order Comment: Specimen Type: BLOOD SPEC IMENOrdering Facility: [facility] Address: [address] [place] [address] Performed By: #### 5 7021-8 ####[facility] LABORATORYCLIA [id number] [address] [place] Monocytes (Bld) [#/Vol] 1.16 10*3/uL High <0.87 [facility] Comment on above: Order Comment: Specimen Type: BLOOD SPEC IMENOrdering Facility: [facility] Address: [address] [place] [address] Performed By: #### 5 7021-8 ####[facility] LABORATORYCLIA [id number] [address] [place] Monocytes/100 WBC (Bld) 6.2 % Normal [facility] Comment on above: Order Comment: Specimen Type: BLOOD SPEC IMENOrdering Facility: [facility] Address: [facility] [place] [place] [address] Performed By: #### 5 7021-8 ####[facility] LABORATORYCLIA [id number] [place] [address] [place] Neutrophils (Bld) [#/Vol] 15.62 10*3/uL High 1.45-7.50 [facility] Comment on above: Order Comment: Specimen Type: BLOOD SPEC IMENOrdering Facility: [facility] Address: [address] [place] [address] Performed By: #### 5 7021-8 ####GEORGE LABORATORYCLIA [id number] [place] [id number] [place] Neutrophils/100 WBC (Bld) 83.1 % Normal [facility] Comment on above: Order Comment: Specimen Type: BLOOD SPEC IMENOrdering Facility: [facility] Address: [address] [place] [address] Performed By: #### 5 7021-8 ####[facility] LABORATORYCLIA [id number] [place] [id number] [place] Nucleated RBC (Bld) [#/Vol] 10*3/uL Normal <0.01 [facility] Comment on above: Order Comment: Specimen Type: BLOOD SPEC IMENOrdering Facility: [facility] Address: [address] [place] [address] Performed By: #### 5 7021-8 ####GEORGE LABORATORYCLIA [id number] [place] [id number] [place] Nucleated RBC/100 WBC (Bld) [Ratio] 0.0 /100 WBC Normal [facility] Comment on above: Order Comment: Specimen Type: BLOOD SPEC IMENOrdering Facility: [facility] Address: [address] [place] [address] Performed By: #### 5 7021-8 ####GEORGE LABORATORYCLIA [id number] [place] [id number] [place] Platelet mean volume (Bld) [Entitic vol] 9.2 fL Normal 9.0-12.7 [facility] Comment on above: Order Comment: Specimen Type: BLOOD SPEC IMENOrdering Facility: [facility] Address: [address] [place] [address] Performed By: #### 5 7021-8 ####[facility] LABORATORYCLIA [id number] [place] [id number] [place] Platelets (Bld) [#/Vol] 502 10*3/uL High 150-400 [facility] Comment on above: Order Comment: Specimen Type: BLOOD SPEC IMENOrdering Facility: [facility] Address: [address] [place] [address] Performed By: #### 5 7021-8 ####[facility] LABORATORYCLIA [id number] [place] [id number] [place] RBC (Bld) [#/Vol] 4.42 10*6/uL Normal 3.90-5.20 [facility] Comment on above: Order Comment: Specimen Type: BLOOD SPEC IMENOrdering Facility: [facility] Address: [address] [place] [address] Performed By: #### 5 7021-8 ####[facility] LABORATORYCLIA [id number] [place] [id number] [place] WBC (Bld) [#/Vol] 18.78 10*3/uL High 3.70-11.00 [facility] Comment on above: Order Comment: Specimen Type: BLOOD SPEC IMENOrdering Facility: [facility] Address: [address] [place] [address] Performed By: #### 5 7021-8 ####[facility] LABORATORYCLIA [id number] [place] [id number] [facility] [place] HIGH SENSITIVITY TROPONIN To n 08-04-2023 Troponin T.cardiac High sensitivity method [Mass/Vol] 7 ng/L Normal <12 [facility] Comment on above: Order Comment: Specimen Type: BLOOD SPEC IMENOrdering Facility: [facility] Address: [address], [place] [address] Result Comment: When assessing risk for acute [...] day MACE. Performed By: #### H STNT ####[facility] LABORATORYCLIA [id number] [place] [id number] [facility] [place] Magnesium SerPl-mCncon 08-04 Magnesium [Mass/Vol] 1.8 mg/dL Normal 1.7-2.3 [facility] Comment on above: Order Comment: Specimen Type: BLOOD SPEC IMENOrdering Facility: [facility] Address: [address] [place] [address] Performed By: #### 1 9123-9, 25829-2, 2777-1 ####[facility] LABORATORYCLIA [id number] [place] [id number] [place] NURSING PROGon 08-04-2023 NURSING PROG HNO ID: [id number] Author: KIRA VANCE RN Service: ? Author Type: Registered Nurse Type: Nursing Progress Note Filed: 08/04/2023 17:06 Note Text: Transfer Note: PATIENT NAME: Susi Ortiz Patient Location: [place] [address]/[place] [address] Room: [place] [address] Patient transferred into room/unit [facility] in stable condition. Actions taken: No futher actions taken at this time. Will continue to monitor and check with patient. 1705: Sent text page to surgical team, pt has epidural and need order for tele and pulse ox. Normal [facility] NURSING PROG HNO ID: [id number] Author: KINGA HERNANDEZ, SUSAN Service: Nursing Author Type: Registered Nurse Type: Nursing Progress Note Filed: 08/04/2023 07:38 Note Text: 0700- Patient refusing PANCHO hose and SCDs at this time. 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 Normal [facility] NURSING PROG HNO ID: [id number] Author: KIEL MALONEY, SUSAN Service: Pain Management Author Type: Registered Nurse Type: Nursing Progress Note Filed: 08/04/2023 08:16 Note Text: THORACIC EPIDURAL ( T8) Dr. Lopez and Dr. Wiggins Patient verbalized understanding of epidural procedure. Patient tolerated procedure very well. [facility] NURSING PROG HNO ID: [id number] Author: KINGA HERNANDEZ RN Service: Nursing Author Type: Registered Nurse Type: Nursing Progress Note Filed: 08/04/2023 06:40 Note Text: PATIENT EDUCATION TOPIC: PROCEDURE / SURGERY: Pre-op Teaching: Surgical Safety Principles PATIENT NAME: Susi Ortiz PATIENT LOCATION: [place] READINESS TO LEARN COGNITIVE ABILITY: Alert and [...] (RECOMMENDATION): None Electronically Signed By: Kinga Hernandez [facility] OPERATIVE NOon 08-04-2023 OPERATIVE NO HNO ID: [id number] Author: JOE GRANDA MD Service: General Surgery Author Type: Physician Type: Operative Report Filed: 08/05/2023 15:18 Note Text: [facility] - Operative Report SUSI ORTIZ : 1985 AGE: 38. SEX: F PATIENT TYPE: I HOSP SVC: Surgical LOCATION: [facility] ATTENDING PHYSICIAN: Joe Granda M.D. CSN NUMBER: [id number] DATE OF SURGERY/PROCEDURE: 08/04/2023 INCISION/PROCEDURE START TIME: 9:39 AM INCISION CLOSE/PROCEDURE END TIME: 2:39 PM PREOPERATIVE DIAGNOSIS: 1. Persistent morbid obesity. 2. 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 3. History of open splenectomy. POSTOPERATIVE DIAGNOSIS: 1. Persistent morbid obesity. 2. 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 3. History of open splenectomy. SURGEON: Joe Granda M.D. THREADER: 1. Cony Soler MD. 2. Som Hampton [...] during the duodenal dissection. Joe Granda M.D. ESTEFANIA:[id number] /[id number] D: (more content not included)... Normal [facility] Phosphate SerPl-mCncon 08-04 Phosphate [Mass/Vol] 3.9 mg/dL Normal 2.7-4.8 [facility] Comment on above: Order Comment: Specimen Type: BLOOD SPEC IMENOrdering Facility: [facility] Address: [address] [place] [id number] Performed By: #### 1 9123-9, 50663-4, 2777-1 ####[facility] [id number] [address] Nick 08-03-2023 CNPN Telephone (GENBMI) SUSI ORTIZ ([id number]) 1985 F FNS Date Time Provider Department 08/03/23 SILVIA CURRY During your visit today, we recorded the following information about you: Silvia Curry, RN 08/03/2023 5:00 PM Signed [facility] COORDINATION SURGERY PRE-OP EDUCATION NOTE Phoned patient to reinforce prior pre-op instruction and answer any questions she might have. No answer. Left brief vmm including contact info for this RN and requested call back. Allergies As of Date: 08/03/2023 Noted Allergy Reaction ADHES. OZAI-LMBG-LEGGOZXFRDAM 03/13/2015 2 - Rash ADHESIVE TAPE-SILICONES 05/06/2019 [...] Status:Closed by SILVIA CURRY on 08/03/23 Normal [facility] HISTORY PHYSICALon HISTORY PHYSICAL HNO ID: [id number] Author: NONI SUMMERS APRN.CNP Service: ? Author [...] body mass index of 60.0-69.9 in adult ([facility]) Assessment: Body mass index is 66.6 kg/m?. TONEY on CPAP Assessment: Noncompliant with CPAP Thrombocytosis ([facility]) Assessment: chronic leukocytosis and thrombocytosis Most recent labs CBC with diff: WBC 13.23 07/13/2023 Platelet Count 555 07/13/2023 Bipolar affective disorder ([facility]) Assessment: managed on medication by PCP and [...] orally disintegrat (more content not included)... Normal [facility] TYPE AND SCREEN,30 DAYon ABO A Normal [facility] Comment on above: Order Comment: Specimen Type: BLOOD SPEC IMEN [facility] Address: [address] [place] [address] Performed By: #### 2 284-8, 27308, 2132-02 #### [facility] CLIA [id number] [address] [place] [address] [place] HISTORICAL AB SCR STATUS Negative Normal [facility] Comment on above: Order Comment: Specimen Type: BLOOD SPEC IMEN [facility] Address: [address] [place] [address] Performed By: #### 2 284-8, 2730-8, 2132-02 #### [facility] CLIA [id number] [address] [place] [address] [place] Rh Nom (Bld) Positive Normal [facility] Comment on above: Order Comment: Specimen Type: BLOOD SPEC IMEN [facility] Address: [address] [place] [address] Performed By: #### 2 284-8, 1948, 2132-02 #### [facility] CLIA [id number] [address] [place] [address] [place] CNOVon 07-20-2023 CNOV Office Visit (BMIREJ ) SUSI ORTIZ ([id number]) 1985 F FNS Date Time Provider Department 07/20/23 11:50 AM JOE GRANDA During your visit today, we recorded the following information about you: Pulse Blood pressure Weight Height 77/minute 121/78 175 kg 1.626 m Last Period 07/08/23 Joe Granda MD 07/20/2023 2:06 PM Signed SURGERY PREOPERATIVE VISIT NOTE Name: Susi Ortiz Medical Record: [id number] Encounter No.: [id number] Susi Ortiz is a 38 year old [...] use: Never ALLERGIES: ALLERGIES Allergen Reactions Adhes. Rivo-Yjcx-Cw* Rash Adhesive Tape-Silic* Rash Augmentin [Amoxicil* Diarrhea [...] regarding unsatisfactory weight loss as well as [facility] weight regain. I have also discussed medical complications including urinary tract infections, myocardial infarction, DVT, PE, prolonged ICU stay, and possible postoperative mechanical ventilation and the risk of mortality. I have reviewed with this patient needed nutritional changes, post-operative recovery, and the potential (more content not included)... Normal [facility] CBC W Auto Differential pane l (Bld)on 07-13-2023 Basophils (Bld) [#/Vol] 0.11 10*3/uL High <0.11 [facility] Comment on above: Order Comment: Specimen Type: BLOOD SPEC IMENOrdering Facility: [facility] Address: [address] [place] [address] Performed By: #### 5 7021-8 ####[facility] LABCLIA [id number] [place] [address] Basophils/100 WBC (Bld) 0.8 % Normal [facility] Comment on above: Order Comment: Specimen Type: BLOOD SPEC IMENOrdering Facility: [facility] Address: [address] [place] [address] Performed By: #### 5 7021-8 ####[facility] LABCLIA [id number] [place] [address] Differential cell count method Nom (Bld) Auto Normal [facility] Comment on above: Order Comment: Specimen Type: BLOOD SPEC IMENOrdering Facility: [facility] Address: [address] [place] [address] Performed By: #### 5 7021-8 ####[facility] LABCLIA [id number] [place] [address] Eosinophils (Bld) [#/Vol] 0.31 10*3/uL Normal <0.46 [facility] Comment on above: Order Comment: Specimen Type: BLOOD SPEC IMENOrdering Facility: [facility] Address: [address] [place] [address] Performed By: #### 5 7021-8 ####[facility] LABCLIA [id number] [place] [address] Eosinophils/100 WBC (Bld) 2.3 % Normal [facility] Comment on above: Order Comment: Specimen Type: BLOOD SPEC IMENOrdering Facility: [facility] Address: [address] [place] [address] Performed By: #### 5 7021-8 ####[facility] LABCLIA [id number] [place] [address] Erythrocyte distribution width (RBC) [Ratio] 14.1 % Normal 11.5-15.0 [facility] Comment on above: Order Comment: Specimen Type: BLOOD SPEC IMENOrdering Facility: [facility] Address: [address] [place] [address] Performed By: #### 5 7021-8 ####[facility] LABCLIA [id number] [place] [address] Hematocrit (Bld) [Volume fraction] 45.8 % Normal 36.0-46.0 [facility] Comment on above: Order Comment: Specimen Type: BLOOD SPEC IMENOrdering Facility: [facility] Address: [address] [place] [address] Performed By: #### 5 7021-8 ####[facility] LABCLIA [id number] [place] [address] Hemoglobin (Bld) [Mass/Vol] 14.7 g/dL Normal 11.5-15.5 [facility] Comment on above: Order Comment: Specimen Type: BLOOD SPEC IMENOrdering Facility: [facility] Address: [address] [place] [address] Performed By: #### 5 7021-8 ####[facility] LABCLIA [id number] [place] [address] Immature granulocytes (Bld) [#/Vol] 0.05 10*3/uL Normal <0.10 [facility] Comment on above: Order Comment: Specimen Type: BLOOD SPEC IMENOrdering Facility: [facility] Address: [address] [place] [address] Performed By: #### 5 7021-8 ####[facility] LABCLIA [id number] [place] [address] Immature granulocytes/100 WBC (Bld) 0.4 % Normal [facility] Comment on above: Order Comment: Specimen Type: BLOOD SPEC IMENOrdering Facility: [facility] Address: [address] [place] [address] Performed By: #### 5 7021-8 ####[facility] LABCLIA [id number] [place] [address] Lymphocytes (Bld) [#/Vol] 3.61 10*3/uL Normal 1.00-4.00 [facility] Comment on above: Order Comment: Specimen Type: BLOOD SPEC IMENOrdering Facility: [facility] Address: [address] [place] [address] Performed By: #### 5 7021-8 ####[facility] LABCLIA [id number] [place] [address] Lymphocytes/100 WBC (Bld) 27.3 % Normal [facility] Comment on above: Order Comment: Specimen Type: BLOOD SPEC IMENOrdering Facility: [facility] Address: [address] [place] [address] Performed By: #### 5 7021-8 ####[facility] LABCLIA [id number] [place] [address] MCH (RBC) [Entitic mass] 28.9 pg Normal 26.0-34.0 [facility] Comment on above: Order Comment: Specimen Type: BLOOD SPEC IMENOrdering Facility: [facility] Address: [address] [place] [address] Performed By: #### 5 7021-8 ####[facility] LABCLIA [id number] [place] [address] MCHC (RBC) [Mass/Vol] 32.1 g/dL Normal 30.5-36.0 [facility] Comment on above: Order Comment: Specimen Type: BLOOD SPEC IMENOrdering Facility: [facility] Address: [address] [place] [address] Performed By: #### 5 7021-8 ####[facility] LABCLIA [id number] [place] [address] MCV (RBC) [Entitic vol] 90.0 fL Normal 80.0-100.0 [facility] Comment on above: Order Comment: Specimen Type: BLOOD SPEC IMENOrdering Facility: [facility] Address: [address] [place] [address] Performed By: #### 5 7021-8 ####[facility] LABCLIA [id number] [place] [address] Monocytes (Bld) [#/Vol] 1.10 10*3/uL High <0.87 [facility] Comment on above: Order Comment: Specimen Type: BLOOD SPEC IMENOrdering Facility: [facility] Address: [address] [place] [address] Performed By: #### 5 7021-8 ####[facility] LABCLIA [id number] [place] [address] Monocytes/100 WBC (Bld) 8.3 % Normal [facility] Comment on above: Order Comment: Specimen Type: BLOOD SPEC IMENOrdering Facility: [facility] Address: [address] [place] [address] Performed By: #### 5 7021-8 ####[facility] LABCLIA [id number] [place] [address] Neutrophils (Bld) [#/Vol] 8.05 10*3/uL High 1.45-7.50 [facility] Comment on above: Order Comment: Specimen Type: BLOOD SPEC IMENOrdering Facility: [facility] Address: [address] [place] [address] Performed By: #### 5 7021-8 ####[facility] LABCLIA [id number] [place] [address] Neutrophils/100 WBC (Bld) 60.9 % Normal [facility] Comment on above: Order Comment: Specimen Type: BLOOD SPEC IMENOrdering Facility: [facility] Address: [address] [place] [address] Performed By: #### 5 7021-8 ####[facility] LABCLIA [id number] [place] [address] Nucleated RBC (Bld) [#/Vol] 10*3/uL Normal <0.01 [facility] Comment on above: Order Comment: Specimen Type: BLOOD SPEC IMENOrdering Facility: [facility] Address: [address] [place] [address] Performed By: #### 5 7021-8 ####[facility] LABIA [id number] [place] [address] Nucleated RBC/100 WBC (Bld) [Ratio] 0.0 /100 WBC Normal [facility] Comment on above: Order Comment: Specimen Type: BLOOD SPEC IMENOrdering Facility: [facility] Address: [address] [place] [address] Performed By: #### 5 7021-8 ####[facility] LABIA [id number] [place] [address] Platelet mean volume (Bld) [Entitic vol] 9.1 fL Normal 9.0-12.7 [facility] Comment on above: Order Comment: Specimen Type: BLOOD SPEC IMENOrdering Facility: [facility] Address: [address] [place] [address] Performed By: #### 5 7021-8 ####[facility] LABIA [id number] [place] [address] Platelets (Bld) [#/Vol] 555 10*3/uL High 150-400 [facility] Comment on above: Order Comment: Specimen Type: BLOOD SPEC IMENOrdering Facility: [facility] Address: [address] [place] [address] Performed By: #### 5 7021-8 ####[facility] LABCLIA [id number] [place] [address] RBC (Bld) [#/Vol] 5.09 10*6/uL Normal 3.90-5.20 [facility] Comment on above: Order Comment: Specimen Type: BLOOD SPEC IMENOrdering Facility: [facility] Address: [address] [place] [address] Performed By: #### 5 7021-8 ####[facility] LABCLIA [id number] [place] [address] WBC (Bld) [#/Vol] 13.23 10*3/uL High 3.70-11.00 [facility] Comment on above: Order Comment: Specimen Type: BLOOD SPEC IMENOrdering Facility: [facility] Address: [address] [place] [address] Performed By: #### 5 7021-8 ####[facility] LABCLIA [id number] [place] [address] Comprehensive metabolic 2000 panelon 07-13-2023 Albumin [Mass/Vol] 4.5 g/dL Normal 3.9-4.9 [facility] Comment on above: Order Comment: Specimen Type: BLOOD SPEC IMEN [facility] Address: [address] [place] [address] Performed By: #### 2 284-8, 2730-8, 2132-02 #### [facility] CLIA [id number] [address] [facility] [id number] [address] [place] ALP [Catalytic activity/Vol] 124 U/L High 34-123 [facility] Comment on above: Order Comment: Specimen Type: BLOOD SPEC IMEN [facility] Address: [address] [place] [address] Performed By: #### 2 284-8, 2731-8, 2132-02 #### [facility] CLIA [id number] [address] [place], [place] [address] [place] ALT [Catalytic activity/Vol] 18 U/L Normal 7-38 [facility] Comment on above: Order Comment: Specimen Type: BLOOD SPEC IMEN [facility] Address: [address] [place] [address] Performed By: #### 2 284-8, 2731-01, 2132-02 #### [facility] CLIA [id number] [address] [place] [address] [place] Anion gap [Moles/Vol] 11 mmol/L Normal 9-18 [facility] Comment on above: Order Comment: Specimen Type: BLOOD SPEC IMEN [facility] Address: [address] [place] [address] Performed By: #### 2 284-8, 2731-01, 2132-02 #### [facility] CLIA [id number] [address] [place] [address] [place] AST [Catalytic activity/Vol] 21 U/L Normal 13-35 [facility] Comment on above: Order Comment: Specimen Type: BLOOD SPEC IMEN [facility] Address: [address] [place] [address] Performed By: #### 2 284-8, 8, 2132-02 #### [facility] CLIA [id number] [address] [place] [address] [place] Bilirubin [Mass/Vol] 0.3 mg/dL Normal 0.2-1.3 [facility] Comment on above: Order Comment: Specimen Type: BLOOD SPEC IMEN [facility] Address: [address] [place] [address] Performed By: #### 2 284-8, 8, 2132-02 #### [facility] CLIA [id number] [address] [place] [address] [place] Calcium [Mass/Vol] 10.0 mg/dL Normal 8.5-10.2 [facility] Comment on above: Order Comment: Specimen Type: BLOOD SPEC IMEN [facility] Address: [address] [place] [address] Performed By: #### 2 284-8, 2731-8, 2132-02 #### [facility] CLIA [id number] [address] [place] [address] [place] Chloride [Moles/Vol] 101 mmol/L Normal 97-105 [facility] Comment on above: Order Comment: Specimen Type: BLOOD SPEC IMEN [facility] Address: [address] [place] [address] Performed By: #### 2 284-8, 2730-8, 2132-02 #### [facility] CLIA [id number] [address] [place] [address] [place] CO2 [Moles/Vol] 25 mmol/L Normal 22-30 [facility] Comment on above: Order Comment: Specimen Type: BLOOD SPEC IMEN [facility] Address: [address] [place] [address] Performed By: #### 2 284-8, 2730-8, 2132-02 #### [facility] CLIA [id number] [address] [place] [address] [place] Creatinine [Mass/Vol] 0.73 mg/dL Normal 0.58-0.96 [facility] Comment on above: Order Comment: Specimen Type: BLOOD SPEC IMEN [facility] Address: [address] [place] [address] Performed By: #### 2 284-8, 273-8, 2132-02 #### [facility] CLIA [id number] [address] [place] [address] [place] Creatinine and Glomerular filtration rate.predicted panel (S/P/Bld) 108 mL/min/1.73m??? Normal >=60 [facility] Comment on above: Order Comment: Specimen Type: BLOOD SPEC IMEN [facility] Address: [address] [place] [address] Result Comment: Janet mated Glomerular Filtration Rate [...] By: #### 2 284-8, 8, 2132-02 #### [facility] CLIA [id number] [address] [place] [address] [place] Glucose [Mass/Vol] 115 mg/dL High 74-99 [facility] Comment on above: Order Comment: Specimen Type: BLOOD SPEC IMEN [facility] Address: [address] [place] [address] Result Comment: The [place] [employer] (ADA) provides guidance for cutoff [...] Standards of Medical Care in Diabetes 2016, [place] [employer]. Diabetes Care. 2016.39(Suppl 1). Performed By: #### 2 284-8, 2730-8, 2132-02 #### [facility] CLIA [id number] [address] [place] [address] [place] Potassium [Moles/Vol] 4.3 mmol/L Normal 3.7-5.1 [facility] Comment on above: Order Comment: Specimen Type: BLOOD SPEC IMEN [facility] Address: [address] [place] [address] Performed By: #### 2 284-8, 273-8, 2132-02 #### [facility] CLIA [id number] [address] [place] [address] [place] Protein [Mass/Vol] 8.1 g/dL High 6.3-8.0 [facility] Comment on above: Order Comment: Specimen Type: BLOOD SPEC IMEN [facility] Address: [address] [place] [address] Performed By: #### 2 284-8, 273-8, 2132-02 #### [facility] CLIA [id number] [address] [place] [address] [place] Sodium [Moles/Vol] 137 mmol/L Normal 136-144 [facility] Comment on above: Order Comment: Specimen Type: BLOOD SPEC IMEN [facility] Address: [address] [place] [address] Performed By: #### 2 284-8, 273-8, 2132-02 #### [facility] CLIA [id number] [address] [place] [address] [place] Urea nitrogen [Mass/Vol] 10 mg/dL Normal 7-21 [facility] Comment on above: Order Comment: Specimen Type: BLOOD SPEC IMEN [facility] Address: [address] [place] [address] Performed By: #### 2 284-8, 273-8, 2132-02 #### [facility] CLIA [id number] [address] [place] [address] [place] CNPShanon 04-27-2023 KATTYN Telephone (BMIREJ) ORTIZSUSI ([id number]) 1985 F FNS Date Time Provider Department 04/27/23 JOE RGANDA BMIREJ During your visit today, we recorded [...] of Date: 04/27/2023 Noted Allergy Reaction ADHES. [id number] 03/13/2015 2 - Rash ADHESIVE TAPE-SILICONES 05/06/2019 [...] Status:Closed by JOE GRANDA on 04/27/23 Normal [facility] Basic metabolic 2000 panelon 04-01-2023 Anion gap [Moles/Vol] 10 mmol/L Normal 9-18 [facility] Comment on above: Order Comment: Specimen Type: BLOOD SPEC IMENOrdering Facility: [facility] Address: [address] [place] [address] Performed By: #### 2 4321-2 ####[facility]ORYCLIA [id number] [place] [address] [place] Calcium [Mass/Vol] 9.1 mg/dL Normal 8.5-10.2 [facility] Comment on above: Order Comment: Specimen Type: BLOOD SPEC IMENOrdering Facility: [facility] Address: [address] [address] Performed By: #### 2 4321-2 ####[facility]ATORYCLIA [id number] [place] [address] [place] Chloride [Moles/Vol] 102 mmol/L Normal 97-105 [facility] Comment on above: Order Comment: Specimen Type: BLOOD SPEC IMENOrdering Facility: [facility] Address: [address] [address] Performed By: #### 2 4321-2 ####[facility]ATORYCLIA [id number] [place] [address] [place] CO2 [Moles/Vol] 25 mmol/L Normal 22-30 [facility] Comment on above: Order Comment: Specimen Type: BLOOD SPEC IMENOrdering Facility: [facility] Address: [address] [place] [address] Performed By: #### 2 4321-2 ####[facility]ATORYCLIA [id number] [place] [address] [place] Creatinine [Mass/Vol] 0.59 mg/dL Normal 0.58-0.96 [facility] Comment on above: Order Comment: Specimen Type: BLOOD SPEC IMENOrdering Facility: [facility] Address: [address] [place] [address] Performed By: #### 2 4321-2 ####[facility]ATORYCLIA [id number] [place] [id number] [place] Creatinine and Glomerular filtration rate.predicted panel (S/P/Bld) 119 mL/min/1.73m??? Normal >=60 [facility] Comment on above: Order Comment: Specimen Type: BLOOD SPEC IMENOrdering Facility: [facility] Address: [address] [place] [address] Result Comment: Janet mated Glomerular Filtration Rate [...] actual GFR. Performed By: #### 2 4321-2 ####[facility]ORYCLIA [id number] [place] [address] [place] Glucose [Mass/Vol] 130 mg/dL High 74-99 [facility] Comment on above: Order Comment: Specimen Type: BLOOD SPEC IMENOrdering Facility: [facility] Address: [address] [place] [address] Result Comment: The [place] [employer] (ADA) provides guidance for cutoff [...] Standards of Medical Care in Diabetes 2016, [place] [employer]. Diabetes Care. 2016.39(Suppl 1). Performed By: #### 2 4321-2 ####[facility]ATORYCLIA [id number] [place] [id number] [place] Potassium [Moles/Vol] 4.2 mmol/L Normal 3.7-5.1 [facility] Comment on above: Order Comment: Specimen Type: BLOOD SPEC IMENOrdering Facility: [facility] Address: [address] [place] [address] Performed By: #### 2 4321-2 ####[facility] LABORATORYCLIA [id number] [place] [id number] [facility] Sodium [Moles/Vol] 137 mmol/L Normal 136-144 [facility] Comment on above: Order Comment: Specimen Type: BLOOD SPEC IMENOrdering Facility: [facility] Address: [address] [place] [address] Performed By: #### 2 4321-2 ####[facility] LABORATORYCLIA [id number] [address] [place] [facility] Urea nitrogen [Mass/Vol] 5 mg/dL Low 7-21 [facility] Comment on above: Order Comment: Specimen Type: BLOOD SPEC IMENOrdering Facility: [facility] Address: [address] [place] [address] Performed By: #### 2 4321-2 ####[facility] LABORATORYCLIA [id number] [address] [place] CBC panel Auto (Bld)on 04-01 Erythrocyte distribution width (RBC) [Ratio] 15.1 % High 11.5-15.0 [facility] Comment on above: Order Comment: Specimen Type: BLOOD SPEC IMENOrdering Facility: [facility] Address: [address] [place] [address] Performed By: #### 5 8410-2 ####[facility] LABORATORYCLIA [id number] [address] Hematocrit (Bld) [Volume fraction] 39.2 % Normal 36.0-46.0 [facility] Comment on above: Order Comment: Specimen Type: BLOOD SPEC IMENOrdering Facility: [facility] Address: [address] [place] [address] Performed By: #### 5 8410-2 ####[facility] LABORATORYCLIA [id number] [address] Hemoglobin (Bld) [Mass/Vol] 12.7 g/dL Normal 11.5-15.5 [facility] Comment on above: Order Comment: Specimen Type: BLOOD SPEC IMENOrdering Facility: [facility] Address: [address] [place] [address] Performed By: #### 5 8410-2 ####[facility] LABORATORYCLIA [id number] [address] MCH (RBC) [Entitic mass] 29.3 pg Normal 26.0-34.0 [facility] Comment on above: Order Comment: Specimen Type: BLOOD SPEC IMENOrdering Facility: [facility] Address: [address] [place] [address] Performed By: #### 5 8410-2 ####[facility] LABORATORYCLIA [id number] [address] MCHC (RBC) [Mass/Vol] 32.4 g/dL Normal 30.5-36.0 [facility] Comment on above: Order Comment: Specimen Type: BLOOD SPEC IMENOrdering Facility: [facility] Address: [address] [place] [address] Performed By: #### 5 8410-2 ####[facility]ATORYCLIA [id number] [address] MCV (RBC) [Entitic vol] 90.3 fL Normal 80.0-100.0 [facility] Comment on above: Order Comment: Specimen Type: BLOOD SPEC IMENOrdering Facility: [facility] Address: [address] [place] [address] Performed By: #### 5 8410-2 ####[facility] LABORATORYCLIA [id number] [address] Nucleated RBC (Bld) [#/Vol] 10*3/uL Normal <0.01 [facility] Comment on above: Order Comment: Specimen Type: BLOOD SPEC IMENOrdering Facility: [facility] Address: [address] [place] [address] Performed By: #### 5 8410-2 ####[facility]ATORYCLIA [id number] [place] [address] [place] Platelet mean volume (Bld) [Entitic vol] 9.7 fL Normal 9.0-12.7 [facility] Comment on above: Order Comment: Specimen Type: BLOOD SPEC IMENOrdering Facility: [facility] Address: [address] [place] [address] Performed By: #### 5 8410-2 ####[facility]ATORYCLIA [id number] [place] [id number] [place] Platelets (Bld) [#/Vol] 463 10*3/uL High 150-400 [facility] Comment on above: Order Comment: Specimen Type: BLOOD SPEC IMENOrdering Facility: [facility] Address: [address] [place] [address] Performed By: #### 5 8410-2 ####[facility]ATORYCLIA [id number] [address] [place] RBC (Bld) [#/Vol] 4.34 10*6/uL Normal 3.90-5.20 [facility] Comment on above: Order Comment: Specimen Type: BLOOD SPEC IMENOrdering Facility: [facility] Address: [address] [place] [address] Performed By: #### 5 8410-2 ####[facility]ATORYCLIA [id number] [place] [id number] [place] WBC (Bld) [#/Vol] 15.94 10*3/uL High 3.70-11.00 [facility] Comment on above: Order Comment: Specimen Type: BLOOD SPEC IMENOrdering Facility: [facility] Address: [address] [place] [address] Performed By: #### 5 8410-2 ####[facility]ATORYCLIA [id number] [place] [id number] [facility] [place] NURSING PROGon 04-01-2023 NURSING PROG HNO ID: [id number] Author: Susi Ruffin RN Service: Nursing Author Type: Registered Nurse Type: Nursing Progress Note Filed: 04/01/2023 4:52 PM Note Text: Daily Note 1645 Pt discharged in stable condition and all of belongings left with pt. Discussed discharge paperwork, follow-up appointments, and clarified questions. IV removed and transport called to wheel pt out. [facility] NURSING PROG HNO ID: [id number] Author: Hina Monet RN Service: ? Author Type: Registered Nurse Type: Nursing Progress Note Filed: 04/01/2023 3:24 AM Note Text: Pt tolerating clears. Given oxycodone twice tonight for abd pain. States passing flatus. up to BR with standby assist. Steady, stable. [facility] PT EDon 04-01-2023 PT ED HNO ID: [id number] Author: Tasneem Good RD Service: NST-Nutrition Support [...] April 01, 2023 TIME: 12:23 PM PAGER: [facility] ANES POSTPROC EVALon 023 ANES POSTPROC EVAL HNO ID: [id number] Author: Darrel Conklin MD Service: Anesthesiology Author [...] March 31, 2023 TIME: 2:40 PM CSN: [id number] [facility] ANES PRE-OPon 03-31-2023 ANES PRE-OP HNO ID: [id number] Author: Darrel Conklin MD Service: Anesthesiology Author Type: Anesthesiologist Type: Anesthesia Preprocedure Evaluation Filed: 03/31/2023 9:13 AM Note Text: ANESTHESIOLOGY DAY OF SURGERY NOTE : 1985 Procedure Information Date/Time: 03/31/23929 Procedure: LAPAROSCOPY SURGICAL GASTRIC RESTRICTIVE PROCEDURE BILIOPANCREATIC DIVERSION WITH DUODENAL SWITCH (Abdomen) Location: OR06 / [facility] Surgeons: Joe Grnada MD Estimated body mass index is 68.66 [...] March 31, 2023 TIME: 9:13 AM CSN: [id number] [facility] BRIEF OP NOTon 03-31-2023 BRIEF OP NOT HNO ID: [id number] Author: Joe Abraham MD Service: General Surgery Author Type: Resident Type: Brief Op Note Filed: 03/31/2023 12:53 PM Note Text: Attestation signed by Joe Granda MD at 03/31/2023 2:33 PM [id number] Joe Granda MD GENERAL SURGERY BRIEF OP NOTE LOG ID: [id number] Surgery/Procedure Date: 03/31/2023 Incision/Procedure Start Time: 11:11 AM Incision Close/Procedure End Time: 12:52 PM Surgeon(s) and Seo Executive(s): Surgeon(s) and Role: * Joe Granda MD [...] 31, 2023 TIME: 12:52 PM PAGER/CONTACT #: [phone] [facility] NURSING PROGon 03-31-2023 NURSING PROG HNO ID: [id number] Author: Susi Ruffin RN Service: Nursing Author Type: Registered Nurse Type: Nursing Progress Note Filed: 03/31/2023 5:08 PM Note Text: Transfer Note: PATIENT NAME: Susi Ortiz Patient Location: [place] [address] [address] Room: [place] [address] Patient transferred in stable condition. Actions taken: Report given/called to [facility]. Orders signed and held were transferred over. [facility] NURSING PROG HNO ID: [id number] Author: Cathleen Hubbard RN Service: Nursing Author [...] (RECOMMENDATION): None Electronically Signed By: Cathleen Hubbard [facility] OPERATIVE NOon 03-31-2023 OPERATIVE NO HNO ID: [id number] Author: Joe Granda MD Service: General Surgery Author Type: Physician Type: Operative Report Filed: 04/09/2023 3:22 PM Note Text: [facility] - Operative Report SUSI ORTIZ : 1985 AGE: 37. SEX: F PATIENT TYPE: I HOSP SVC: Surgical LOCATION: [facility] ATTENDING PHYSICIAN: Joe Granda M.D. CSN NUMBER: [id number] DATE OF SURGERY/PROCEDURE: 03/31/2023 INCISION/PROCEDURE START TIME: [...] of sleeve leak. SURGEON: Joe Granda M.D. THREADER: Joe Abraham. SURGERY/PROCEDURE: Laparoscopic enterolysis. ANESTHESIA: General [...] Monocryl an (more content not included)... Normal [facility] [id number] 03-10-2023 ECG01 Ventricular Rate : 7 5 BPM Atrial Rate : 75 BPM P-R Interval : 172 ms QRS Duration : 96 ms Q-T Interval : 390 ms QTC Calculation(Bazett) : 435 ms Calculated P [place] : 22 degrees Calculated R [place] : 25 degrees Calculated T [place] : 27 degrees NORMAL SINUS RHYTHM NORMAL ECG Confirmed by Penelope Fowler M.D. ([id number]) on 03/13/2023 4:51:16 PM NAME : SUSI ORTIZ PID : [id number] : 1985 Gender : Female Race : [...] JOE GRANDA Acquired by : Winsome viera [facility] HISTORY PHYSICALon 3 HISTORY PHYSICAL HNO ID: [id number] Author: Shruti Alvarado APRN.CNP Service: ? Author [...] medication comments found. ALLERGIES Allergen Reactions Adhes. Hnfq-Bdxp-Qb* Rash Adhesive Tape-Silic* Rash Augmentin [Amoxicil* Diarrhea Keflex [Cephalexin] Rash, Itching Penicillins Hives Ultram [Tramadol Hc* Itching COVID VACCINATION STATUS: Fully vaccinated REVIEW OF SYSTEMS: PAIN ASSESSMENT: General: No weight loss, malaise or fevers. Neuro: No history of TIA's, stroke, EMERGENCY DOCTOR tumor, impaired sensorium, hemiplegia, paraplegia or quadraplegia. No neurological symptoms or problems. Positive for Migraines on Inderal Respiratory: Positive for TONEY non compliant with CPAP , Negative for No history of current cough or dyspnea, or pneumonia in the past 6 weeks. No history of respiratory/pulmonary symptoms or problems Cardiovascular: No history of HTN requiring medication, n (more content not included)... Normal [facility] CBC W Auto Differential pane l (Bld)on 01-23-2023 Anisocytosis Ql (Bld) Present Normal [facility] Comment on above: Order Comment: Specimen Type: BLOOD SPEC IMEN [facility] Address: [address] [place] [address] Performed By: #### 2 284-8, 8, 2132-02 #### [facility] CLIA [id number] [address] [place] [address] [place] Basophils (Bld) [#/Vol] 0.14 10*3/uL High <0.11 [facility] Comment on above: Order Comment: Specimen Type: BLOOD SPEC IMEN [facility] Address: [address] [place] [address] Performed By: #### 2 284-8, 8, 2132-02 #### [facility] CLIA [id number] [address] [place] [address] [place] Basophils/100 WBC (Bld) 1.0 % Normal [facility] Comment on above: Order Comment: Specimen Type: BLOOD SPEC IMEN [facility] Address: [address] [place] [address] Performed By: #### 2 284-8, 2731-01, 2132-02 #### [facility] CLIA [id number] [address] [place] [address] [place] Differential cell count method Nom (Bld) Manual Normal [facility] Comment on above: Order Comment: Specimen Type: BLOOD SPEC IMEN Ordering Facility: [facility] Address: [address] [place] [address] Performed By: #### 2 284-8, 2730-8, 2132-02 #### [facility] CLIA [id number] [address] [place] [address] [place] Eosinophils (Bld) [#/Vol] 0.41 10*3/uL Normal <0.46 [facility] Comment on above: Order Comment: Specimen Type: BLOOD SPEC IMEN Ordering Facility: [facility] Address: [address] [place] [address] Performed By: #### 2 284-8, 2731-8, 2132-02 #### [facility] CLIA [id number] [address] [place] [address] [place] Eosinophils/100 WBC (Bld) 3.0 % Normal [facility] Comment on above: Order Comment: Specimen Type: BLOOD SPEC IMEN Ordering Facility: [facility] Address: [address] [place] [address] Performed By: #### 2 284-8, 8, 2132-02 #### [facility] CLIA [id number] [address] [place] [address] [place] Erythrocyte distribution width (RBC) [Ratio] 15.2 % High 11.5-15.0 [facility] Comment on above: Order Comment: Specimen Type: BLOOD SPEC IMEN Ordering Facility: [facility] Address: [address] [place] [address] Performed By: #### 2 284-8, 8, 2132-02 #### [facility] CLIA [id number] [address] [place] [address] [place] Hematocrit (Bld) [Volume fraction] 46.2 % High 36.0-46.0 [facility] Comment on above: Order Comment: Specimen Type: BLOOD SPEC IMEN Ordering Facility: [facility] Address: [address] [place] [address] Performed By: #### 2 284-8, 273-8, 2132-02 #### [facility] CLIA [id number] [address] [place] [address] [place] Hemoglobin (Bld) [Mass/Vol] 14.5 g/dL Normal 11.5-15.5 [facility] Comment on above: Order Comment: Specimen Type: BLOOD SPEC IMEN Ordering Facility: [facility] Address: [address] [place] [address] Performed By: #### 2 284-8, 2731-8, 2132-02 #### [facility] CLIA [id number] [address] [place] [address] [place] Lymphocytes (Bld) [#/Vol] 5.61 10*3/uL High 1.00-4.00 [facility] Comment on above: Order Comment: Specimen Type: BLOOD SPEC IMEN Ordering Facility: [facility] Address: [address] [place] [address] Performed By: #### 2 284-8, 8, 2132-02 #### [facility] CLIA [id number] [address] [place] [address] [place] Lymphocytes/100 WBC (Bld) 41.0 % Normal [facility] Comment on above: Order Comment: Specimen Type: BLOOD SPEC IMEN Ordering Facility: [facility] Address: [address] [place] [address] Performed By: #### 2 284-8, 2730-8, 2132-02 #### [facility] CLIA [id number] [address] [place] [address] [place] MCH (RBC) [Entitic mass] 28.2 pg Normal 26.0-34.0 [facility] Comment on above: Order Comment: Specimen Type: BLOOD SPEC IMEN Ordering Facility: [facility] Address: [address] [place] [address] Performed By: #### 2 284-8, 2730-8, 2132-02 #### [facility] CLIA [id number] [address] [place] [address] [place] MCHC (RBC) [Mass/Vol] 31.4 g/dL Normal 30.5-36.0 [facility] Comment on above: Order Comment: Specimen Type: BLOOD SPEC IMEN Ordering Facility: [facility] Address: [address] [place] [address] Performed By: #### 2 284-8, 8, 2132-02 #### [facility] CLIA [id number] [address] [place] [address] [place] MCV (RBC) [Entitic vol] 89.9 fL Normal 80.0-100.0 [facility] Comment on above: Order Comment: Specimen Type: BLOOD SPEC IMEN Ordering Facility: [facility] Address: [address] [place] [address] Performed By: #### 2 284-8, 8, 2132-02 #### [facility] CLIA [id number] [address] [place] [address] [place] Monocytes (Bld) [#/Vol] 0.68 10*3/uL Normal <0.87 [facility] Comment on above: Order Comment: Specimen Type: BLOOD SPEC IMEN Ordering Facility: [facility] Address: [address] [place] [address] Performed By: #### 2 284-8, 2731-01, 2132-02 #### [facility] CLIA [id number] [address] [place] [address] [place] Monocytes/100 WBC (Bld) 5.0 % Normal [facility] Comment on above: Order Comment: Specimen Type: BLOOD SPEC IMEN Ordering Facility: [facility] Address: [address] [place] [address] Performed By: #### 2 284-8, 2731-01, 2132-02 #### [facility] CLIA [id number] [address] [place] [address] [place] Neutrophils (Bld) [#/Vol] 6.84 10*3/uL Normal 1.45-7.50 [facility] Comment on above: Order Comment: Specimen Type: BLOOD SPEC IMEN Ordering Facility: [facility] Address: [address] [place] [address] Performed By: #### 2 284-8, 8, 2132-02 #### [facility] CLIA [id number] [address] [place] [address] [place] Neutrophils/100 WBC (Bld) 50.0 % Normal [facility] Comment on above: Order Comment: Specimen Type: BLOOD SPEC IMEN Ordering Facility: [facility] Address: [address] [place] [address] Performed By: #### 2 284-8, 8, 2132-02 #### [facility] CLIA [id number] [address] [place] [address] [place] Nucleated RBC (Bld) [#/Vol] 10*3/uL Normal <0.01 [facility] Comment on above: Order Comment: Specimen Type: BLOOD SPEC IMEN Ordering Facility: [facility] Address: [address] [place] [address] Performed By: #### 2 284-8, 8, 2132-02 #### [facility] CLIA [id number] [address] [place] [address] [place] Nucleated RBC/100 WBC (Bld) [Ratio] 0.0 /100 WBC Normal [facility] Comment on above: Order Comment: Specimen Type: BLOOD SPEC IMEN Ordering Facility: [facility] Address: [address] [place] [address] Performed By: #### 2 284-8, 8, 2132-02 #### [facility] CLIA [id number] [address] [place] [address] [place] Platelet mean volume (Bld) [Entitic vol] 10.1 fL Normal 9.0-12.7 [facility] Comment on above: Order Comment: Specimen Type: BLOOD SPEC IMEN Ordering Facility: [facility] Address: [address] [place] [address] Performed By: #### 2 284-8, 273-8, 2132-02 #### [facility] CLIA [id number] [address] [place] [address] [place] Platelets (Bld) [#/Vol] 624 10*3/uL High 150-400 [facility] Comment on above: Order Comment: Specimen Type: BLOOD SPEC IMEN Ordering Facility: [facility] Address: [address] [place] [address] Performed By: #### 2 284-8, 273-8, 2132-02 #### [facility] CLIA [id number] [address] [place] [address] [place] Platelets Estimate (Bld) [#/Vol] Increased Normal [facility] Comment on above: Order Comment: Specimen Type: BLOOD SPEC IMEN Ordering Facility: [facility] Address: [address] [place] [address] Performed By: #### 2 284-8, 2730-8, 2132-02 #### [facility] CLIA [id number] [address] [place] [address] [place] RBC (Bld) [#/Vol] 5.14 10*6/uL Normal 3.90-5.20 [facility] Comment on above: Order Comment: Specimen Type: BLOOD SPEC IMEN Ordering Facility: [facility] Address: [address] [place] [address] Performed By: #### 2 284-8, 2730-8, 9 #### [facility] CLIA [id number] [address] [place] [address] [place] RED CELL MORPH Reviewed: see result s of individual morphologies Normal [facility] Comment on above: Order Comment: Specimen Type: BLOOD SPEC IMEN Ordering Facility: [facility] Address: [address] [place] [address] Performed By: #### 2 284-8, 2731-8, 2132-02 #### [facility] CLIA [id number] [address] [place] [address] [place] WBC (Bld) [#/Vol] 13.68 10*3/uL High 3.70-11.00 [facility] Comment on above: Order Comment: Specimen Type: BLOOD SPEC IMEN Ordering Facility: [facility] Address: [address] [place] [address] Performed By: #### 2 284-8, 273-8, 2132-02 #### [facility] CLIA [id number] [address] [place] [address] [place] Comprehensive metabolic 2000 panelon 01-23-2023 Albumin [Mass/Vol] 3.9 g/dL Normal 3.9-4.9 [facility] Comment on above: Order Comment: Specimen Type: BLOOD SPEC IMEN Ordering Facility: [facility] Address: [address] [place] [address] Performed By: #### 2 284-8, 2730-8, 2132-02 #### [facility] CLIA [id number] [address] [place] [address] [place] ALP [Catalytic activity/Vol] 101 U/L Normal 34-123 [facility] Comment on above: Order Comment: Specimen Type: BLOOD SPEC IMEN Ordering Facility: [facility] Address: [address] [place] [address] Performed By: #### 2 284-8, 273-8, 2132-02 #### [facility] CLIA [id number] [address] [place] [address] [place] ALT [Catalytic activity/Vol] 17 U/L Normal 7-38 [facility] Comment on above: Order Comment: Specimen Type: BLOOD SPEC IMEN Ordering Facility: [facility] Address: [address] [place] [address] Performed By: #### 2 284-8, 2731-8, 2132-02 #### [facility] CLIA [id number] [address] [place] [address] [place] Anion gap [Moles/Vol] 16 mmol/L Normal 9-18 [facility] Comment on above: Order Comment: Specimen Type: BLOOD SPEC IMEN Ordering Facility: [facility] Address: [address] [place] [address] Performed By: #### 2 284-8, 8, 2132-02 #### [facility] CLIA [id number] [address] [place] [address] [place] AST [Catalytic activity/Vol] 33 U/L Normal 13-35 [facility] Comment on above: Order Comment: Specimen Type: BLOOD SPEC IMEN Ordering Facility: [facility] Address: [address] [place] [address] Performed By: #### 2 284-8, 2731-01, 2132-02 #### [facility] CLIA [id number] [address] [place] [address] [place] Bilirubin [Mass/Vol] 0.2 mg/dL Normal 0.2-1.3 [facility] Comment on above: Order Comment: Specimen Type: BLOOD SPEC IMEN Ordering Facility: [facility] Address: [address] [place] [address] Performed By: #### 2 284-8, 8, 2132-02 #### [facility] CLIA [id number] [address] [place] [address] [place] Calcium [Mass/Vol] 10.2 mg/dL Normal 8.5-10.2 [facility] Comment on above: Order Comment: Specimen Type: BLOOD SPEC IMEN Ordering Facility: [facility] Address: [address] [place] [address] Performed By: #### 2 284-8, 8, 2132-02 #### [facility] CLIA [id number] [address] [place] [address] [place] Chloride [Moles/Vol] 100 mmol/L Normal 97-105 [facility] Comment on above: Order Comment: Specimen Type: BLOOD SPEC IMEN Ordering Facility: [facility] Address: [address] [place] [address] Performed By: #### 2 284-8, 2731-8, 9 #### [facility] CLIA [id number] [address] [place] [address] [place] CO2 [Moles/Vol] 19 mmol/L Low 22-30 [facility] Comment on above: Order Comment: Specimen Type: BLOOD SPEC IMEN Ordering Facility: [facility] Address: [address] [place] [address] Performed By: #### 2 284-8, 2731-8, 9 #### [facility] CLIA [id number] [address] [place] [address] [place] Creatinine [Mass/Vol] 0.64 mg/dL Normal 0.58-0.96 [facility] Comment on above: Order Comment: Specimen Type: BLOOD SPEC IMEN Ordering Facility: [facility] Address: [address] [place] [address] Performed By: #### 2 284-8, 2731-8, 9 #### [facility] CLIA [id number] [address] [place] [address] [place] ESTIMATED GLOMERULAR FILTRATION RATE 117 mL/min/1.73m??? Normal >=60 [facility] Comment on above: Order Comment: Specimen Type: BLOOD SPEC IMEN Ordering Facility: [facility] Address: [address] [place] [address] Result Comment: Janet mated Glomerular Filtration Rate [...] By: #### 2 284-8, 2731-01, 2132-02 #### [facility] CLIA [id number] [address] [place] [address] [place] Glucose [Mass/Vol] 73 mg/dL Low 74-99 [facility] Comment on above: Order Comment: Specimen Type: BLOOD SPEC IMEN Ordering Facility: [facility] Address: [address] [place] [address] Result Comment: The [place] [employer] (ADA) provides guidance for cutoff [...] Standards of Medical Care in Diabetes 2016, [place] [employer]. Diabetes Care. 2016.39(Suppl 1). Performed By: #### 2 284-8, 2731-01, 2132-02 #### [facility] CLIA [id number] [address] [place] [address] [place] Potassium [Moles/Vol] 4.5 mmol/L Normal 3.7-5.1 [facility] Comment on above: Order Comment: Specimen Type: BLOOD SPEC IMEN Ordering Facility: [facility] Address: [address] [place] [address] Performed By: #### 2 284-8, 2731-01, 2132-02 #### [facility] CLIA [id number] [address] [place] [address] [place] Protein [Mass/Vol] 7.8 g/dL Normal 6.3-8.0 [facility] Comment on above: Order Comment: Specimen Type: BLOOD SPEC IMEN Ordering Facility: [facility] Address: [address] [place] [address] Performed By: #### 2 284-8, 273-8, 9 #### [facility] CLIA [id number] [address] [place] [address] [place] Sodium [Moles/Vol] 135 mmol/L Low 136-144 [facility] Comment on above: Order Comment: Specimen Type: BLOOD SPEC IMEN Ordering Facility: [facility] Address: [address] [place] [address] Performed By: #### 2 284-8, 273-8, 9 #### [facility] CLIA [id number] [address] [place] [address] [place] Urea nitrogen [Mass/Vol] 7 mg/dL Normal 7-21 [facility] Comment on above: Order Comment: Specimen Type: BLOOD SPEC IMEN Ordering Facility: [facility] Address: [address] [place] [address] Performed By: #### 2 284-8, 273-8, 9 #### [facility] CLIA [id number] [address] [place] [address] [place] CNPShanon 01-05-2023 CNPN Telephone (BMIJAN) SUSI ORTIZ ([id number]) 1985 F Date Time Provider Department 01/05/23 [...] - Stop all ASA and NSAID products, [place] 3 fish oil, herbal products such as [...] Pt instructed to fax FMLA forms to [phone] and allow 7-10 days for completion. - [...] of Date: 01/05/2023 Noted Allergy Reaction ADHES. [id number] 03/13/2015 2 - Rash ADHESIVE TAPE-SILICONES 05/06/2019 [...] disorder (HCC) (more content not included)... Normal [facility] XR ankle LT min 3V*on 2022 XR ankle LT min 3V* [facility] [employer] Other XR ankle LT min 3V* [facility] [employer] Other XR ankle LT min 3V* [address] [place] [address] [employer] Other XR ankle LT min 3V* [place] [address] [employer] Other XR ankle LT min 3V* XRay Report [employer] Other XR ankle LT min 3V* Signed [employer] Other XR ankle LT min 3V* Patient: Susi Ortiz MR#: M [employer] Other XR ankle LT min 3V* [id number] [employer] Other XR ankle LT min 3V* : 1985 Acct:[id number] [employer] Other XR ankle LT min 3V* Age/Sex: 37 / F ADM Date: 12/13/22 [employer] Other XR ankle LT min 3V* Loc: XDUCLY Room: Type: [facility] [employer] Other XR ankle LT min 3V* Attending Dr: Linda South APRN [employer] Other XR ankle LT min 3V* Copies to: Linda South APRN [employer] Other XR ankle LT min 3V* Ordering Provider: Linda South APRN [employer] Other XR ankle LT min 3V* Date of Service: 12/13/22 [employer] Other XR ankle LT min 3V* XR/XR ankle LT min 3V*: Acute left ankle pain [employer] Other XR ankle LT min 3V* LEFT ANKLE - 3 views [employer] Other XR ankle LT min 3V* CLINICAL DATA: Patient felt a pop at the ankle while walking this morning. Lateral pain and [employer] Other XR ankle LT min 3V* swelling. [employer] Other XR ankle LT min 3V* COMPARISON: LEFT FOOT 11/13/2021 [employer] Other XR ankle LT min 3V* AP, lateral and oblique views were obtained. There is no evidence of fracture or dislocation. [employer] Other XR ankle LT min 3V* The talar dome is intact. Posterior and plantar calcaneal spurs are visualized. There is diffuse [employer] Other XR ankle LT min 3V* soft tissue prominence related to body habitus. [employer] Other XR ankle LT min 3V* XR/XR ankle LT min 3V* [employer] Other XR ankle LT min 3V* IMPRESSION: [employer] Other XR ankle LT min 3V* NO ACUTE BONY FINDINGS. [employer] Other XR ankle LT min 3V* Impression dictated by: Diana Rojas M.D.12/13/2022 10:38 AM [employer] Other XR ankle LT min 3V* Dictation Location: [facility] [employer] Other XR ankle LT min 3V* Transcribed By: GENO 12/13/22 1038 [employer] Other XR ankle LT min 3V* Dictated By: Diana Rojas MD 12/13/22 1030 [employer] Other XR ankle LT min 3V* Signed By: [employer] Other XR ankle LT min 3V* 12/13/22 4887 [employer] Other XR ankle LT min 3V* [facility] Main [place] [address] [place] [address] XRay Report Signed Patient: Susi Ortiz MR#: [id number] : 1985 Acct:[id number] Age/Sex: 37 / F ADM Date: 12/13/22 Loc: XDUCLY Room: Type: [facility] Attending Dr: Linda South APRN Copies to: [...] Diana Rojas M.D.12/13/2022 10:38 AM Dictation Location: [facility] Transcribed By: GENO 12/13/22 1038 Dictated By: Diana Rojas MD 12/13/22 1036 Signed By: 12/13/22 1038 Normal [facility] CT HEAD WO CONon 08-19-2022 CT HEAD [...] MANPREET TORRES Date: 2022-08-19 18:23 Normal [facility] VITAMIN B1 (THIAMINE)on 03-29 Vit. B1, Whole Blood 113.1 nmol/L Normal 66.5-200.0 [facility] Comment on above: Performed By: #### FETIBC, VITAD, B12FOL #### [facility] [address] [address] [address] Gentry Harmon XR foot RT min 3V*on 022 XR foot RT min 3V* [facility] Main [place] [address] [place] [address] XRay Report Signed Patient: Susi Ortiz MR#: Inna [id number] : 1985 Acct:[id number] Age/Sex: 36 / F ADM Date: 04/16/22 Loc: XDUCLY Room: Type: [facility] Attending Dr: Christa JONES Copies to: ROBERT [...] Gt Ventura M.D.04/16/2022 7:09 PM Dictation Location: [place] [address] Transcribed By: [facility] 04/16/221908 Dictated By: Gt Ventura II, MD 04/16/221903 Signed By: 04/16/221908 Normal [facility] XR foot RT min 3V* [facility] [employer] Other XR foot RT min 3V* [facility] Main [place] [employer] Other XR foot RT min 3V* [address] [place] [address] [employer] Other XR foot RT min 3V* [place] [address] [employer] Other XR foot RT min 3V* XRay Report [employer] Other XR foot RT min 3V* Signed [employer] Other XR foot RT min 3V* Patient: Susi Ortiz MR#: M [employer] Other XR foot RT min 3V* [id number] [employer] Other XR foot RT min 3V* : 1985 Acct:[id number] [employer] Other XR foot RT min 3V* Age/Sex: 36 / F ADM Date: 04/16/22 [employer] Other XR foot RT min 3V* Loc: XDUCLY [facility] [employer] Other XR foot RT min 3V* Attending Dr: Christa JONES [employer] Other XR foot RT min 3V* Copies to: ROBERT Feliciano [employer] Other XR foot RT min 3V* Ordering Provider: ROBERT Feliciano [employer] Other XR foot RT min 3V* Date of Service: 04/16/22 [employer] Other XR foot RT min 3V* XR/XR foot RT min 3V*: Right foot pain [employer] Other XR foot RT min 3V* XR foot RT min 3V* 04/16/2022 6:45 PM [employer] Other XR foot RT min 3V* SIGNS AND SYMPTOMS: Popping sensation in right foot [employer] Other XR foot RT min 3V* PROTOCOL: Frontal, lateral, and oblique radiographs of the right [employer] Other XR foot RT min 3V* COMPARISON: 11/04/2018 [employer] Other XR foot RT min 3V* FINDINGS: [employer] Other XR foot RT min 3V* The bones are in anatomic alignment. Degenerative changes without evidence of fracture or [facility] [employer] Other XR foot RT min 3V* dislocation. There is diffuse soft tissue swelling. There is plantar and Achilles surface calc [employer] Other XR foot RT min 3V* aneal spurring. Degenerative changes are noted in the talonavicular joint. [employer] Other XR foot RT min 3V* XR/XR foot RT min 3V* [employer] Other XR foot RT min 3V* IMPRESSION: [employer] Other XR foot RT min 3V* No fracture. [employer] Other XR foot RT min 3V* There is diffuse soft tissue swelling which is new. [employer] Other XR foot RT min 3V* Mild degenerative changes are noted at the talonavicular junction with spurring at the plantar and [employer] Other XR foot RT min 3V* Achilles surface of the calcaneus. [employer] Other XR foot RT min 3V* Impression dictated by: Gt Ventura M.D.04/16/2022 7:09 PM [place] [employer] Other XR foot RT min 3V* Dictation Location: [place] [address] [employer] Other XR foot RT min 3V* Transcribed By: GENO 04/16/221908 [employer] Other XR foot RT min 3V* Dictated By: Gt Ventura II, MD 04/16/221903 [employer] Other XR foot RT min 3V* Signed By: [employer] Other XR foot RT min 3V* 04/16/221908 [employer] Other CBC AUTO DIFFon 04-11-2022 BASO # 0.1 103/ul Normal 0.0-0.1 [facility] Comment on above: Performed By: #### FETIBC, VITAD, B12FOL #### [facility] [address] [address] [address] Gentry Harmon Basophils/100 WBC (Bld) 0.5 % Normal 0.2-2.0 [facility] Comment on above: Performed By: #### FETIBC, VITAD, B12FOL #### [facility] [address] [place] [address] Dr. Gentry Harmon EO # 0.2 103/ul Normal 0.0-0.7 [facility] Comment on above: Performed By: #### FETIBC, VITAD, B12FOL #### [facility] [address] [place] [address] Dr. Gentry Harmon Eosinophils/100 WBC (Bld) 0.9 % Normal 0.9-7.0 [facility] Comment on above: Performed By: #### FETIBC, VITAD, B12FOL #### [facility] [address] [place] [address] Dr. Gentry Harmon Erythrocyte distribution width (RBC) [Ratio] 14.3 % Normal 11.0-15.0 [facility] Comment on above: Performed By: #### FETIBC, VITAD, B12FOL #### [facility] [address] [place] [address] Dr. Gentry Harmon Hematocrit (Bld) [Volume fraction] 41.9 % Normal 36.0-48.0 [facility] Comment on above: Performed By: #### FETIBC, VITAD, B12FOL #### [facility] [address] [place] [address] Dr. Gentry Harmon Hemoglobin (Bld) [Mass/Vol] 13.4 g/dL Normal 12.0-16.0 [facility] Comment on above: Performed By: #### FETIBC, VITAD, B12FOL #### [facility] [address] [place] [address] Dr. Gentry Harmon IG # 0.06 10e3/ul Critically high 0.00-0.03 [facility] Comment on above: Performed By: #### FETIBC, VITAD, B12FOL #### [facility] [address] [place] [address] Dr. Gentry Harmon IG % 0.3 % Normal 0.0-0.5 [facility] Comment on above: Performed By: #### FETIBC, VITAD, B12FOL #### [facility] [address] [place] [address] Dr. Gentry Harmon LYMPH # 5.9 103/ul Critically high 1.2-3.8 [facility] Comment on above: Performed By: #### FETIBC, VITAD, B12FOL #### [facility] [address] [place] [address] Dr. Gentry Harmon Lymphocytes/100 WBC (Bld) 34.0 % Normal 20.5-60.0 [facility] Comment on above: Performed By: #### FETIBC, VITAD, B12FOL #### [facility] [address] [place] [address] Dr. Gentry Harmon MANUAL DIFF REQ NO Normal [facility] Comment on above: Performed By: #### FETIBC, VITAD, B12FOL #### [facility] [address] [place] [address] Dr. Gentry Harmon MCH (RBC) [Entitic mass] 28.9 pg Normal 26.7-34.0 [facility] Comment on above: Performed By: #### FETIBC, VITAD, B12FOL #### [facility] [address] [place] [address] Dr. Gentry Harmon MCHC (RBC) [Mass/Vol] 32.0 g/dL Normal 29.9-35.2 [facility] Comment on above: Performed By: #### FETIBC, VITAD, B12FOL #### [facility] [address] [place] [address] Dr. Gentry Harmon MCV (RBC) [Entitic vol] 90.3 fL Normal 81.0-99.0 [facility] Comment on above: Performed By: #### FETIBC, VITAD, B12FOL #### [facility] [address] [place] [address] Dr. Gentry Harmon MONO # 1.3 103/ul Critically high 0.3-0.8 [facility] Comment on above: Performed By: #### FETIBC, VITAD, B12FOL #### [facility] [address] [address] [address] Gentry Harmon Monocytes/100 WBC (Bld) 7.8 % Normal 1.7-12.0 [facility] Comment on above: Performed By: #### FETIBC, VITAD, B12FOL #### [facility] [address] [address] [address] Gentry Harmon NEUT # 9.8 103/ul Critically high 1.4-6.5 [facility] Comment on above: Performed By: #### FETIBC, VITAD, B12FOL #### [facility] [address] [address] [address] Gentry Harmon Neutrophils/100 WBC (Bld) 56.5 % Normal 43.0-75.0 [facility] Comment on above: Performed By: #### FETIBC, VITAD, B12FOL #### [facility] [address] [place] [address] Dr. Gentry Harmon Platelet mean volume (Bld) [Entitic vol] 9.3 fL Critically low 9.5-13.5 [facility] Comment on above: Performed By: #### FETIBC, VITAD, B12FOL #### [facility] [address] [address] [address] Gentry Harmon PLT 522 103/ul Critically high 150-450 [facility] Comment on above: Performed By: #### FETIBC, VITAD, B12FOL #### [facility] [address] [address] [address] Gentry Harmon RBC 4.64 106/ul Normal 4.20-5.40 [facility] Comment on above: Performed By: #### FETIBC, VITAD, B12FOL #### [facility] [address] [place] [address] Dr. Gentry Harmon WBC 17.3 103/ul Critically high 4.0-11.0 [facility] Comment on above: Performed By: #### FETIBC, VITAD, B12FOL #### [facility] [address] [place] [address] Dr. Gentry Harmon IRON AND TIBCon 04-11-2022 % SATURATION 15.7 % Normal [facility] Comment on above: Performed By: #### FETIBC, VITAD, B12FOL #### [facility] [address] [place] [address] Dr. Gentry Harmon Iron [Mass/Vol] 58.0 ug/dL Normal 50.0-170.0 [facility] Comment on above: Performed By: #### FETIBC, VITAD, B12FOL #### [facility] [address] [address] [address] Gentry Harmon TIBC DIRECT 369.0 ug/dL Normal 250.0-450. 0 [facility] Comment on above: Performed By: #### FETIBC, VITAD, B12FOL #### [facility] [address] [place] [address] Dr. Gentry Harmon PREALBUMINon 04-11-2022 Prealbumin [Mass/Vol] 27.8 mg/dL Normal 20.9-45.5 [facility] Comment on above: Performed By: #### CMP, PREALB #### [facility] [address] [place] [address] Dr. Gentry Harmon PROF 14(COMP METB)on 022 Albumin [Mass/Vol] 3.3 g/dL Critically low 3.4-5.0 [facility] Comment on above: Performed By: #### CMP, PREALB #### [facility] [address] [place] [address] Dr. Gentry Harmon Albumin/Globulin [Mass ratio] 0.8 {ratio} Normal [facility] Comment on above: Performed By: #### CMP, PREALB #### [facility] [address] [place] [address] Dr. Gentry Harmon ALP [Catalytic activity/Vol] 89 U/L Normal 46-116 [facility] Comment on above: Performed By: #### CMP, PREALB #### [facility] [address] [place] [address] Dr. Gentry Harmon ALT [Catalytic activity/Vol] 16 U/L Normal 14-59 [facility] Comment on above: Performed By: #### CMP, PREALB #### [facility] [address] [place] [address] Dr. Gentry Harmon Anion gap [Moles/Vol] 11.3 mmol/L Normal [facility] Comment on above: Performed By: #### CMP, PREALB #### [facility] [address] [place] [address] Dr. Gentry Harmon AST [Catalytic activity/Vol] 11 U/L Critically low 15-37 [facility] Comment on above: Performed By: #### CMP, PREALB #### [facility] [address] [place] [address] Dr. Gentry Harmon Bilirubin [Mass/Vol] 0.1 mg/dL Critically low 0.2-1.0 [facility] Comment on above: Performed By: #### CMP, PREALB #### [facility] [address] [place] [address] Dr. Gentry Harmon Calcium [Mass/Vol] 8.8 mg/dL Normal 8.5-10.1 [facility] Comment on above: Performed By: #### CMP, PREALB #### [facility] [address] [place] [address] Dr. Gentry Harmon Chloride [Moles/Vol] 103 mmol/L Normal 98-107 [facility] Comment on above: Performed By: #### CMP, PREALB #### [facility] [address] [place] [address] Dr. Gentry Harmon CO2 [Moles/Vol] 25.6 mmol/L Normal 21.0-32.0 [facility] Comment on above: Performed By: #### CMP, PREALB #### [facility] [address] [place] [address] Dr. Gentry Harmon Creatinine [Mass/Vol] 0.81 mg/dL Normal 0.55-1.02 [facility] Comment on above: Performed By: #### CMP, PREALB #### [facility] [address] [place] [address] Dr. Gentry Harmon EGFR-AF KUWAITI >60 Normal >=60 [facility] Comment on above: Performed By: #### CMP, PREALB #### [facility] [address] [place] [address] Dr. Gentry Harmon EGFR-NON AF [place]I >60 Normal >=60 [facility] Comment on above: Performed By: #### CMP, PREALB #### [facility] [address] [address] [address] Gentry Harmon Globulin (S) [Mass/Vol] 4.4 g/dL Normal [facility] Comment on above: Performed By: #### CMP, PREALB #### [facility] [address] [place] [address] Dr. Gentry Harmon Glucose [Mass/Vol] 101 mg/dL Normal 74-106 [facility] Comment on above: Performed By: #### CMP, PREALB #### [facility] [address] [place] [address] Dr. Gentry Harmon Potassium [Moles/Vol] 3.9 mmol/L Normal 3.5-5.1 [facility] Comment on above: Performed By: #### CMP, PREALB #### [facility] [address] [place] [address] Dr. Gentry Harmon Protein [Mass/Vol] 7.7 g/dL Normal 6.4-8.2 [facility] Comment on above: Performed By: #### CMP, PREALB #### [facility] [address] [place] [address] Dr. Gentry Harmon Sodium [Moles/Vol] 136 mmol/L Normal 136-145 [facility] Comment on above: Performed By: #### CMP, PREALB #### [facility] [address] [place] [address] Dr. Gentry Harmon Urea nitrogen [Mass/Vol] 10.0 mg/dL Normal 7.0-18.0 [facility] Comment on above: Performed By: #### CMP, PREALB #### [facility] [address] [place] [address] Dr. Gentry Harmon Urea nitrogen/Creatin ine [Mass ratio] 12.3 mg/mg Normal [facility] Comment on above: Performed By: #### CMP, PREALB #### [facility] [address] [address] [address] Gentry Harmon VIT B12 AND FOLATEon 022 Cobalamin (Vitamin B12) [Mass/Vol] 226.0 pg/mL Normal 193.0-986. 0 [facility] Comment on above: Performed By: #### FETIBC, VITAD, B12FOL #### [facility] [address] [address] [address] Gentry Harmon FOLATE 3.20 ng/mL Critically low 8.60-58.90 [facility] Comment on above: Performed By: #### FETIBC, VITAD, B12FOL #### [facility] [address] [place] [address] Dr. Gentry Harmon VITAMIN D 25 OHon 04-11-2022 VIT D 25-OH 23.6 ng/mL Normal [facility] Comment on above: Performed By: #### FETIBC, VITAD, B12FOL #### [facility] [address] [address] [address] Gentry Harmon VIT D RANGES SEE BELOW Normal [facility] Comment on above: Result Comment: <20 ng/mL Vit D deficien t 20 - <30 ng/mL Vit D insufficient 30 - 100 ng/mL Vit D sufficient >100 ng/mL Potential Toxicity Performed By: #### F ETIBC, VITAD, B12FOL #### [facility] [address] [place] [address] Dr. Gentry Harmon XR LSPINE 2_3 VIEWSon [...] ESTELLA ALVES Date: 2022-04-01 19:22 Normal [facility] CT ABD/PEL W IVCONon 022 CT ABD/PEL W IVCON * * *Final Report* * * DATE OF EXAM: Feb 12 2022 2:57PM [facility] 0530 - CT ABD/PEL W IVCON [...] lesions. Lower thorax: Lower lungs are clear. Warehouse Picker (topogram) images: Unremarkable. IMPRESSION: No acute process in the abdomen or pelvis. Necktie Turner: DENISE Transcribe Date/Time: Feb 12 2022 3:04P Dictated by : MARIELA GRECO MD This examination was interpreted and the report reviewed and electronically signed by: MARIELA GRECO MD on Feb 12 2022 3:19PM EST [id number] [facility] NURSING PROGon 02-12-2022 NURSING PROG HNO ID: [id number] Author: Elizabeth Stephens RN Service: Radiology Author [...] DATE: February 12, 2022 TIME: 2:30 PM [facility] ANES POSTPROC EVALon 022 ANES POSTPROC EVAL HNO ID: [id number] Author: Carolina Pink MD Service: Anesthesiology Author [...] Granda MD; Carolina Pink MD; Sami Murcia APRN.CRIMINAL JUSTICE DEPARTMENT CHAIR Responsible Provider: Carolina Pink MD Anesthesia Type: [...] December 18, 2021 TIME: 3:11 PM [id number] [facility] 12-18-2021 ANES PRE-OP HNO ID: [id number] Author: Carolina Pink MD Service: Anesthesiology Author Type: Physician Type: Anesthesia Preprocedure Evaluation Filed: 12/18/2021 11:23 AM Note Text: ANESTHESIOLOGY DAY OF SURGERY NOTE : 1985 Procedure Information Date/Time: 12/18/21 1115 Scheduled providers: Joe Granda MD; Carolina Pink MD; Sami Murcia APRN.CRIMINAL JUSTICE 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 Procedure Code(s): --- Professional --- 42390, Esophagogastroduodenoscopy, flexible, transoral; diagnostic, including collection of specimen(s) by brushing or washing, when performed (separate procedure) Diagnosis Code(s): --- Professional --- Z98.84, Bariatric surgery status R10.13, Epigastric pain R12, Heartburn K95.89, Other complications of other bariatric procedure CPT copyright 2019 [employer]. All rights reserved. The codes documented in this report are preliminary and upon perianesthesia rn review may be revised to meet current [...] HISTORY PHYSICALon 2 HISTORY PHYSICAL HNO ID: [id number] Author: Melissa Olivas PA-C Service: ? Author Type: Physician Seo Executive Type: HANDP Filed: 12/10/2021 1:13 PM Note Text: HISTORY AND PHYSICAL EXAMINATION SERVICE DATE: 12/05/2021 SERVICE TIME: 1:12 PM PRIMARY CARE PHYSICIAN: Geneva Estrada, SEED TRUCKER, SEED TRUCKER This is a virtual visit using alternative [...] Body Mass Index of 60.0-69.9 in Adult ([facility]) COVID-19 Immunization Status Overdue - COVID-19 VACCINE [...] Negative for: dysuria, frequent urination and hematuria. PANTS PRESSER: +amenorrhea with IUD Endocrine: Negative for: diabetes [...] daily. Takin (more content not included)... Normal [facility] XR foot LT min 3V*on 022 XR foot LT min 3V* [facility] [employer] Other XR foot LT min 3V* [facility] [employer] Other XR foot LT min 3V* [facility] [employer] Other XR foot LT min 3V* [place]US[place] [address] [employer] Other XR foot LT min 3V* XRay Report [employer] Other XR foot LT min 3V* Signed [employer] Other XR foot LT min 3V* Patient: Susi Ortiz MR#: M [employer] Other XR foot LT min 3V* [id number] [employer] Other XR foot LT min 3V* : 1985 Acct:[id number] [employer] Other XR foot LT min 3V* Age/Sex: 36 / F ADM Date: 11/13/21 [employer] Other XR foot LT min 3V* Loc: XDUCLY Room: Type: [facility] [employer] Other XR foot LT min 3V* Attending Dr: Christa JONES [employer] Other XR foot LT min 3V* Ordering Provider: ROBERT Fleiciano [employer] Other XR foot LT min 3V* Date of Service: 11/13/21 [employer] Other XR foot LT min 3V* XR/XR foot LT min 3V*: Left foot pain [employer] Other XR foot LT min 3V* Copies to: DIMAS FelicianoC [employer] Other XR foot LT min 3V* Left foot 11/13/2021. [employer] Other XR foot LT min 3V* CLINICAL DATA: Left foot pain. N JUN[employer] Other XR foot LT min 3V* FINDINGS: 3 views of the left foot were obtained and are compared with a prior study 03/21/2019. [employer] Other XR foot LT min 3V* No acute fracture or dislocation is identified. There is calcaneal spurring. No other bony [employer] Other XR foot LT min 3V* abnormality is seen. No localized soft tissue swelling is noted. [employer] Other XR foot LT min 3V* XR/XR foot LT min 3V* [employer] Other XR foot LT min 3V* IMPRESSION: Calcaneal spurring. No acute bony abnormality. [employer] Other XR foot LT min 3V* Impression dictated by: Pawan Gallardo Jr., M.D.11/13/2021 11:30 AM [employer] Other XR foot LT min 3V* Dictation Location: [facility]--13 [employer] Other XR foot LT min 3V* Transcribed By: GENO 11/13/21 1130 [employer] Other XR foot LT min 3V* Dictated By: Pawan Gallardo Jr, MD 11/13/21 1127 [employer] Other XR foot LT min 3V* Signed By: [employer] Other XR foot LT min 3V* 11/13/21 1130 [facility] [employer] Other BULLDOGGER - Office Visiton BULLDOGGER - Office Visit Diagnoses/Problems Assessed Adnexal mass (625.8) (N94.89) Pelvic pain (R10.2) Orders Alpha Fetoprotein, Serum; Status:Active; Requested for:47Wqa8265; Cancer Antigen, 125; Status:Active; Requested for:21Obr6522; Cancer Antigen, GI Ca 19-9; Status:Active; Requested for:83Dlb0822; Carcinoembryonic Antigen; Status:Active; Requested for:55Swy3721; HCG, Beta Quantitative; Status:Active; Requested for:49Eht8432; LDH; Status:Active; Requested for:44Wgs8290; IO Ultrasound, pelvic complete; Status:Hold For - [...] options and next steps. Plan: [x ] PANTS PRESSER ultrasound, patient is to contact our office to schedule [x ] we will check tumor markers [x ] our office staff will reach out to the patient to sign medical record release forms for her operative procedures performed at [facility] [x ] patient is to follow-up with me once this work-up is complete A copy of this note was sent electronically to Dr. Cherri Horvath MD Reproductive Endocrinology and Infertility [facility] [phone] [place] [phone] [place] Provider Impressions Susi is a 36-year-old female [...] options and next steps. Plan: [x ] PANTS PRESSER ultrasound, patient is to contact our office to schedule [x ] we will check tumor markers [x ] our office staff will reach out to the patient to sign medical record release forms for her operative procedures performed at [facility] [x ] patient is to follow-up with me once this work-up is complete A copy of this note was sent electronically to Dr. Cherri Horvath MD Reproductive Endocrinology and Infertility [facility] [phone] [place] [phone] [place] Appointment Duration:. 45 minutes; greater than half [...] Cyst on Right Ovary. History of Present Mucxyfv9209/30/2021 9:15AM SUSI ORTIZ , 36 year is contacted for an (audio-visual, or audio only) Telehealth visit. Today's visit was provided through telemedicine conferencing: Using [employer] platform. Consent: The concept of telemedicine? has [...] She went in for evaluation with her BULLDOGGER in early January 2021, and was subsequently found to have a complex ovarian cyst. She was taken (more content not included)... Normal [facility] Tobacco Screening.on 022 Fall risk assessment a) No falls within the last year DM-CKZFY-Lixe [facility] [facility] Work Phone: Last menstrual period start date MIRENA QX-QBZKW-Rgel [employer] [facility] Work Phone: Tobacco use status CPHS b) No RL-URZRM-Jlaz [employer] [address] [facility] Work Phone: POCT urine pregnancyon 04-06 Beta HCG ( test) Ql (U) Negative NEGATIVE [place], [place] Comment on above: Specimens with hCG levels near the thres hold of the test (25 mIU/mL) may give a negative or indeterminate result. In such cases, another test should be performed with a new specimen in 48-72 hours. If early is suspected clinically in this setting, correlation with quantitative serum b-hCG level is suggested. TESTING PERFORMED AT [address] [address] Surgical Pathologyon 020 Surgical Pathology (NOTE) -- [...] BIOPSY TO RULE OUT H. PYLORI STAIN Alicia-johnson tissue fragments, each 0.2 x 0.2 x [...] SURGICAL PATHOLOGY CONSULTATION Patient Name: SUSI ORTIZ [facility] Rec: [id number] Path Number: [id number] [facility] ANATOMIC PATHOLOGY [address] [place] [id number] Normal [facility] Comment on above: Performed By: #### PPPVS #### [address] [id number] Furniture Mechanic: Tito Balderrama MD [id number] 04-04-2020 SARS-CoV-2 Not Detected Normal Not Detected [facility] Comment on above: Result Comment: (NOTE) This nucleic acid amplification test was developed and its performance characteristics determined by [employer]. Nucleic acid amplification tests include PCR and [...] detected) result in this assay. Performed At: [facility] [address] [facility], [place] [id number] You Naqvi MD Ph:[phone] Performed By: #### A COV #### [facility] [address] [place], [place] [id number] Furniture Mechanic: Olivier Espinosa MD Covid-19 Ambulatoryon 2019 SARS-CoV-2, ASH Not Detected Not Detected [place], [place] Comment on above: (NOTE) This nucleic acid amplification test was developed and its performance characteristics determined by [employer]. Nucleic acid amplification tests include PCR and [...] detected) result in this assay. Performed At: [facility] [address] [facility] [place] [id number] You Naqvi MD Ph:[phone] Drug Scr,Pain Mgmt Uon 01-09 7-Aminoclonazep, Ur Not Detected Normal [facility] Comment on above: Performed By: #### ADAUPM ####[facility] [facility] [place] [place] [address] Acetaminophen mass conc Not Detected Normal [facility] Comment on above: Performed By: #### ADAUPM ####[facility] [facility] [place] [place] [address] Waqus-FG-Uoynnr, Ur Not Detected Normal [facility] Comment on above: Performed By: #### ADAUPM ####[facility] [facility] [place] [place] [address] Alprazolam, Ur Not Detected Normal [facility] Comment on above: Performed By: #### ADAUPM ####[facility] [facility] [place] [place] [address] Amphetamine, Ur Not Detected Normal [facility] Comment on above: Performed By: #### ADAUPM ####[facility] [place] [address], [place] [address] Barbiturates, Ur Not Detected Normal [facility] Comment on above: Performed By: #### ADAUPM ####[facility] [place] [address], [place] [address] Benzoylecgonine, Ur Not Detected Normal [facility] Comment on above: Performed By: #### ADAUPM ####[facility] [place] [address] [place] [address] Buprenorphine, Ur Not Detected Normal [facility] Comment on above: Performed By: #### ADAUPM ####[facility] [place] [address], [place] [address] Carisoprodol, Ur Not Detected Normal [facility] Comment on above: Result Comment: (NOTE)The carisoprodol i mmunoassay has cross-reactivity to carisoprodoland meprobamate. Performed By: #### A DAUPM ####[facility] [place] [address], [place] [address] Clonazepam, Ur Not Detected Normal [facility] Comment on above: Performed By: #### ADAUPM ####[facility] [place] [address], [place] [address] Codeine, Ur Not Detected Normal [facility] Comment on above: Performed By: #### ADAUPM ####[facility] [place] [address] Creatinine 52.1 mg/dL Normal 20.0-400.0 [facility] Comment on above: Performed By: #### ADAUPM ####[facility] [place] [address] Diazepam, Ur Not Detected Normal [facility] Comment on above: Performed By: #### ADAUPM ####[address] [address] EER Hi Res Interp Ur See Note Normal [facility] Comment on above: Result Comment: (NOTE)[facility] ed Report using either link below:-Direct access: [email or web address] Username, Password: [email or web address]://J Kumar InfraprojectsUsername: [email or web address]: [email or web address] by [facility],[address] [place] [id number] auc.[employer], Ari Lowe MD, Lab. DirectorPerformed at [facility] [address] [place] [address] Performed By: #### A DAUPM ####[facility] [place] [address] Fentanyl, Ur Not Detected Normal [facility] Comment on above: Performed By: #### ADAUPM ####[address] [address] Glucose mass conc Not Detected Normal [facility] Comment on above: Performed By: #### ADAUPM ####[address] [address] Hydrocodone, Ur Not Detected Normal [facility] Comment on above: Performed By: #### ADAUPM ####[facility] [place] [address] Hydromorphone, Ur Not Detected Normal [facility] Comment on above: Performed By: #### ADAUPM ####[facility] [place] [address] Lorazepam, Ur Not Detected Normal [facility] Comment on above: Performed By: #### ADAUPM ####[address] [address] Marijuana Metab, Ur Not Detected Normal [facility] Comment on above: Performed By: #### ADAUPM ####[address] [address] MDA, Ur Not Detected Normal [facility] Comment on above: Performed By: #### ADAUPM ####[address] [address] MDEA, Terra, Ur Not Detected Normal [facility] Comment on above: Performed By: #### ADAUPM ####[address] [address] MDMA, Ecstasy, Ur Not Detected Normal [facility] Comment on above: Performed By: #### ADAUPM ####[address] [address] Meperidine metab, Ur Not Detected Normal [facility] Comment on above: Performed By: #### ADAUPM ####[address] [address] Methadone, Ur Not Detected Normal [facility] Comment on above: Performed By: #### ADAUPM ####[facility] [place] [address] Methamphetamine, Ur Not Detected Normal [facility] Comment on above: Performed By: #### ADAUPM ####[facility] [place] [address] [place] [address] Methylphenidate Not Detected Normal [facility] Comment on above: Performed By: #### ADAUPM ####[facility] [place] [address], [place] [address] Midazolam, Ur Not Detected Normal [facility] Comment on above: Performed By: #### ADAUPM ####[facility] [place] [address], [place] [address] Morphine, Ur Not Detected Normal [facility] Comment on above: Performed By: #### ADAUPM ####[facility] [place] [address], [place] [address] Norbuprenorphine , Ur Not Detected Normal [facility] Comment on above: Performed By: #### ADAUPM ####[facility] [place] [address] [place] [address] Nordiazepam, Ur Not Detected Normal [facility] Comment on above: Performed By: #### ADAUPM ####[facility] [place] [address] [place] [address] Norfentanyl, Ur Not Detected Normal [facility] Comment on above: Performed By: #### ADAUPM ####[facility] [place] [address], [place] [address] Norhydrocodone, Ur Not Detected Normal [facility] Comment on above: Performed By: #### ADAUPM ####[address] [place] [address] Noroxycodone, Ur Not Detected Normal [facility] Comment on above: Performed By: #### ADAUPM ####[facility] [facility] [place] [place] [address] Noroxymorphone, Ur Not Detected Normal [facility] Comment on above: Performed By: #### ADAUPM ####[facility] [facility] [place] [place] [address] Oxazepam, Ur Not Detected Normal [facility] Comment on above: Performed By: #### ADAUPM ####[facility] [facility] [place] [place] [address] Oxycodone, Ur Not Detected Normal [facility] Comment on above: Performed By: #### ADAUPM ####[facility] [facility] [place] [place] [address] Oxymorphone, Ur Not Detected Normal [facility] Comment on above: Performed By: #### ADAUPM ####[facility] [facility] [place] [place] [address] Pain [address]g Handley, Ur See Below Normal [facility] Comment on above: Result Comment: (NOTE)Methodology: [...] was developed and its performance characteristicsdetermined by [facility]. The U.S. Food and DrugAdministration has not approved or cleared this test; however, FDAclearance or approval is not currently required for clinical use.The results are not intended to be used as the sole means forclinical diagnosis or patient management decisions. Performed By: #### A DAUPM ####[facility] [facility] [place] [place] [address] PCP, Ur Not Detected Normal [facility] Comment on above: Performed By: #### ADAUPM ####[facility] [facility] [place] [place] [address] Phentermine, Ur Not Detected Normal [facility] Comment on above: Performed By: #### ADAUPM ####[facility] [facility] [place] [place] [address] Pn Mg Drg Handley Int Ur Consistent Normal [facility] Comment on above: Result Comment: (NOTE) _DRUGS EXPECTED:NO DRUGS EXPECTED ___CONSISTENT with medications provided:NO DRUGS DETECTED ___INTERPRETIVE INFORMATION:Pain Mgt Handley, High Res/EMIT, Ur, InterpInterpretation depends on accuracy and completeness of patientmedication information submitted by client. Performed By: #### A DAUPM ####[address] [address] Propoxyphene, Ur Not Detected Normal [facility] Comment on above: Performed By: #### ADAUPM ####[address] [address] Tapentadol o Sul, Ur Not Detected Normal [facility] Comment on above: Performed By: #### ADAUPM ####[address] [address] Tapentadol, Ur Not Detected Normal [facility] Comment on above: Performed By: #### ADAUPM ####[address] [address] Temazepam, Ur Not Detected Normal [facility] Comment on above: Performed By: #### ADAUPM ####[address] [address] Tramadol, Ur Not Detected Normal [facility] Comment on above: Performed By: #### ADAUPM ####[address] [address] Zolpidem, Ur Not Detected Normal [facility] Comment on above: Performed By: #### ADAUPM ####[address] [address] Drug Scr,Pain Mgmt Uon 01-06 Drugs Expected, Ur NONE Normal [facility] Comment on above: Performed By: #### ADAUPM ####[address] [address] Vital Signs Date Time Vital Sign Value Performing Clinician Facility 11-03-2023 10:45-0400 Body mass index (BMI) [Ratio] 63.34 kg/m2 Amina Nieto MD Work Phone: [facility] 11-03-2023 10:45-0400 Body weight 167.38 kg Amina Nieto MD Work Phone: [facility] 11-02-2023 12:53-0400 Body mass index (BMI) [Ratio] 63.34 kg/m2 Jayshree Huffman APRN.[employer] Work Phone: [facility] 11-02-2023 12:53-0400 Body weight 167.38 kg Jayshree Huffman APRN.[employer] Work Phone: [facility] 11-02-2023 10:22-0400 Body height 162.[address] Work Phone: [facility] 11-02-2023 10:22-0400 Body mass index (BMI) [Ratio] 63.48 kg/m2 Rupinder Sayra RD Work Phone: [facility] 11-02-2023 10:22-0400 Body weight 167.[address] Work Phone: [facility] Comment on above: verbal 09-07-2023 09:30-0400 Body height 162.6 cm Jayshree Huffman APRN.[employer] Work Phone: [facility] 09-07-2023 09:30-0400 Body temperature 98.01 [degF] Jayshree Huffman APRN.[employer] Work Phone: [facility] 09-07-2023 09:30-0400 Body weight 169.87 kg Jayshree Huffman APRN.[employer] Work Phone: [facility] 09-07-2023 09:30-0400 Diastolic blood pressure 81 mm[Hg] Jayshree Huffman APRN.[employer] Work Phone: [facility] 09-07-2023 09:30-0400 Heart rate 80 /min Jayshree Nathanael MARKET GARDENER.[employer] Work Phone: [facility] 09-07-2023 09:30-0400 Systolic blood pressure 107 mm[Hg] Jayshree Huffman MARKET GARDENER.[employer] Work Phone: [facility] 08-31-2023 12:07-0500 Body height 162.[address] Work Phone: [facility] 08-31-2023 12:07-0500 Body weight 164.[address] Work Phone: [facility] 08-19-2023 12:14-0500 Body height 162.[address] Work Phone: [facility] 08-19-2023 12:14-0500 Body weight 167.[address] Work Phone: [facility] 08-17-2023 09:52-0500 Body height 162.6 cm Jayshree Huffman [employer] Work Phone: [facility] 08-17-2023 09:52-0500 Body temperature 97.3 [degF] Jayshree Huffman APRN.[employer] TR[employer]ER Work Phone: [facility] 08-17-2023 09:52-0500 Body weight 167.8 kg Jayshree Huffman APRN.[employer] Work Phone: [facility] 08-17-2023 09:52-0500 Diastolic blood pressure 75 mm[Hg] Jayshree Huffman APRN.[employer] TR[employer]ER Work Phone: [facility] 08-17-2023 09:52-0500 Heart rate 75 /min Jayshree Huffman APRN.[employer] Work Phone: [facility] 08-17-2023 09:52-0500 SaO2% (BldA) [Mass fraction] 97 % Jayshree Huffman APRN.[employer] TR[employer]ER Work Phone: [facility] 08-17-2023 09:52-0500 Systolic blood pressure 117 mm[Hg] Jayshree Huffman [employer]ENER.[employer] Work Phone: [facility] 03-10-2023 13:33-0400 Body height 162.6 cm Pacc 2 Work Phone: [facility] 03-10-2023 13:33-0400 Body temperature 97 [degF] Pacc 2 Work Phone: [facility] 03-10-2023 13:33-0400 Body weight 181.44 kg Pacc 2 Work Phone: [facility] 03-10-2023 13:33-0400 Diastolic blood pressure 66 mm[Hg] Pacc 2 Work Phone: [facility] 03-10-2023 13:33-0400 Heart rate 73 /min Pacc 2 Work Phone: [facility] 03-10-2023 13:33-0400 Respiratory rate 16 /min Pacc 2 Work Phone: [facility] 03-10-2023 13:33-0400 SaO2% (BldA) [Mass fraction] 97 % Pacc 2 Work Phone: [facility] 03-10-2023 13:33-0400 Systolic blood pressure 138 mm[Hg] Pacc 2 Work Phone: [facility] 03-05-2023 12:54-0400 Body height [address] Work Phone: [facility] 12-15-2022 15:09-0400 Body height [address] Work Phone: [facility] 12-15-2022 15:09-0400 Body weight 174.[address] Work Phone: [facility] 12-13-2022 09:30-0400 Body height 162.56 cm Linda South Other [employer] Other 12-13-2022 09:30-0400 Body mass index (BMI) [Ratio] 66.08 kg/m2 Linda South Other [employer] Other 12-13-2022 09:30-0400 Body temperature 98.2 [degF] Linda Zhangley Other [employer] Other 12-13-2022 09:30-0400 Body weight 174.64 kg Linda Zhangley Other [employer] Other 12-13-2022 09:30-0400 Respiratory rate 18 /min Linda Zhangley Other [employer] Other 12-13-2022 09:30-0400 SaO2% (BldA) [Mass fraction] 96 % Linda Zhangley Other [employer] Other 06-04-2022 11:04-0500 Body weight 185.07 kg Amina Nieto MD Work Phone: [facility] 04-16-2022 19:25-0400 Body height 162.56 cm Christa Nayeli Other [employer] Other 04-16-2022 19:25-0400 Body mass index (BMI) [Ratio] 60.07 kg/m2 Christa Nayeli Other [employer] Other 04-16-2022 19:25-0400 Body temperature 98.6 [degF] Christa Nayeli Other [employer] Other 04-16-2022 19:25-0400 Body weight 158.76 kg Christa Nayeli Other [employer] Other 04-16-2022 19:25-0400 Respiratory rate 18 /min Christa Nayeli Other [employer] Other 04-16-2022 19:25-0400 SaO2% (BldA) [Mass fraction] 97 % Christa Tyler Other [employer] Other 01-17-2022 09:12-0400 Body height [address] Work Phone: [facility] 01-17-2022 09:12-0400 Body weight 179.[address] Work Phone: [facility] 12-18-2021 12:45-0400 Diastolic blood pressure 103 mm[Hg] Joe Granda MD Work Phone: [facility] 12-18-2021 12:45-0400 SaO2% (BldA) [Mass fraction] 100 % Joe Granda MD Work Phone: [facility] 12-18-2021 12:45-0400 Systolic blood pressure 123 mm[Hg] Joe Granda MD Work Phone: [facility] 12-18-2021 12:34-0400 Body temperature 96.91 [degF] Joe Granda MD Work Phone: [facility] 12-18-2021 12:34-0400 Heart rate 106 /min Joe Granda MD Work Phone: [facility] 12-18-2021 12:34-0400 Respiratory rate 20 /min Joe Granda MD Work Phone: [facility] 11-13-2021 11:30-0400 Body height 162.56 cm Christa Tyler Other [employer] Other 11-13-2021 11:30-0400 Body mass index (BMI) [Ratio] 68.65 kg/m2 Christa Tyler Other [employer] Other 11-13-2021 11:30-0400 Body temperature 98.3 [degF] Christa Tyler Other [employer] Other 11-13-2021 11:30-0400 Body weight 181.44 kg Christa Tyler Other [employer] Other 11-13-2021 11:30-0400 Diastolic blood pressure 77 mm[Hg] Christa Tyler Other [employer] Other 11-13-2021 11:30-0400 Respiratory rate 18 /min Christa Tyler Other [employer] Other 11-13-2021 11:30-0400 SaO2% (BldA) [Mass fraction] 100 % Christa Tyler Other [employer] Other 11-13-2021 11:30-0400 Systolic blood pressure 125 mm[Hg] Christa Tyler Other [employer] Other 11-04-2021 12:44-0400 Body height [address] Work Phone: [facility] 11-04-2021 12:44-0400 Body weight 184.[address] Work Phone: [facility] 11-04-2021 11:13-0400 Body height 160 cm Joe Granda MD Work Phone: [facility] 11-04-2021 11:13-0400 Body weight 184.61 kg Joe Granda MD Work Phone: [facility] 11-04-2021 11:13-0400 Diastolic blood pressure 74 mm[Hg] Joe Granda MD Work Phone: [facility] 11-04-2021 11:13-0400 Heart rate 86 /min Joe Granda MD Work Phone: [facility] 11-04-2021 11:13-0400 Systolic blood pressure 133 mm[Hg] Joe Granda MD Work Phone: [facility] 10-11-2021 14:45-0400 Body height 162.56 cm Bambi Gonzalez Other [employer] Other 10-11-2021 14:45-0400 Body mass index (BMI) [Ratio] 64.36 kg/m2 Bambi Gonzalez Other [employer] Other 10-11-2021 14:45-0400 Body temperature 97.3 [degF] Bambi Gonzalez Other [employer] Other 10-11-2021 14:45-0400 Body weight 170.1 kg Bambi Gonzalez Other [employer] Other 10-11-2021 14:45-0400 Respiratory rate 26 /min Bambi Gonzalez Other [employer] Other 10-11-2021 14:45-0400 SaO2% (BldA) [Mass fraction] 94 % Bambi Gonzalez Other [employer] Other 10-03-2021 13:25-0400 Body height 162.56 cm Rupinder Blakely Other [employer] Other 10-03-2021 13:25-0400 Body mass index (BMI) [Ratio] 68.82 kg/m2 Rupinder Reddy Other [employer] Other 10-03-2021 13:25-0400 Body temperature 97.5 [degF] Rupinder Reddy Other [employer] Other 10-03-2021 13:25-0400 Body weight 181.89 kg Rupinder Blakely Other [employer] Other 10-03-2021 13:25-0400 Diastolic blood pressure 57 mm[Hg] Rupinder Blakely Other [employer] Other 10-03-2021 13:25-0400 Respiratory rate 18 /min Rupinder Blakely Other [employer] Other 10-03-2021 13:25-0400 SaO2% (BldA) [Mass fraction] 99 % Rupinder Blakely Other [employer] Other 10-03-2021 13:25-0400 Systolic blood pressure 118 mm[Hg] Rupinder Blakely Other [employer] Other 09-30-2021 09:03-0400 Body height 162.56 cm Prince Horvtah Work Phone: [id number] [facility] Work Phone: 09-30-2021 09:03-0400 Body mass index (BMI) [Ratio] 60.08 kg/m2 Prince Horvath Work Phone: [id number] [facility] Work Phone: 09-30-2021 09:03-0400 Body surface area Derived from formula 2.48 m2 Prince Horvath Work Phone: [id number] [facility] Work Phone: 09-30-2021 09:03-0400 Body weight 158.76 kg Prince Horvath Work Phone: [id number] [facility] Work Phone: 09-30-2021 09:03-0400 2 1 Prince Horvath Work Phone: [id number] [facility] Work Phone: Comment on above: GRAV PARA 09-30-2021 09:03-0400 0 1 Prince Horvath Work Phone: [id number] [facility] Work Phone: Comment on above: [employer] 09-23-2021 11:00-0400 Body height 160 cm Jayshree Huffman MARK[employer] GARDENER.[employer] Work Phone: [facility] 09-23-2021 11:00-0400 Body weight 165.56 kg Jayshree Huffman [employer] Work Phone: [facility] 05-17-2021 11:18-0500 Body height 160 cm Humza Walter MD Work Phone: [facility] 05-17-2021 11:18-0500 Body mass index (BMI) [Ratio] 68.09 kg/m2 Humza Walter MD Work Phone: [facility] 05-17-2021 11:18-0500 Body temperature 96.3 [degF] Humza Walter MD Work Phone: [facility] 05-17-2021 11:18-0500 Body weight 174.36 kg Humza Walter MD Work Phone: [facility] 05-17-2021 11:18-0500 Diastolic blood pressure 77 mm[Hg] Humza Walter MD Work Phone: [facility] 05-17-2021 11:18-0500 Heart rate 75 /min Humza Walter MD Work Phone: [facility] 05-17-2021 11:18-0500 SaO2% (BldA) [Mass fraction] 95 % Humza Walter MD Work Phone: [facility] 05-17-2021 11:18-0500 Systolic blood pressure 133 mm[Hg] Humza Walter MD Work Phone: [facility] 04-06-2020 09:25-0400 BP Diastolic 77 mm[Hg] [facility] [facility] 04-06-2020 09:25-0400 BP Systolic 129 mm[Hg] [facility] 04-06-2020 09:25-0400 Pulse (Heart Rate) 85 /min [facility] 04-06-2020 09:25-0400 Pulse Oximetry 100 % Kylah [facility], [facility] 04-06-2020 09:25-0400 Respiratory Rate 17 /min Kylah [facility] 04-06-2020 08:54-0400 Body Temperature 97.81 [degF] Kylah [facility] 04-06-2020 08:06-0400 BMI (Body Mass Index) 64.68 kg/m2 Kylah [facility] 04-06-2020 08:06-0400 Body weight 165.62 kg Kylah [facility], [facility] 04-06-2020 08:06-0400 Height 160 cm [facility] En[facility]ters Encounter Date Encounter Type Care Provider [...] Evaluation and management of inpatient YOSHI Kumar [facility] Start: 12-02-2023 End: 12-02-2023 Evaluation and management of inpatient OTILIO LEON [facility] Start: 11-27-2023 End: 11-27-2023 ambulatory [facility] Facility:[facility] Start: 11-17-2023 End: 11-17-2023 ambulatory OTILIO LEON Not Available Start: 11-11-2023 End: 11-11-2023 ambulatory BUSHRA LEWIS Not Available Start: 11-04-2023 End: 11-04-2023 Evaluation and management of inpatient YOSHI DELGADO [facility] Start: 11-04-2023 End: 11-04-2023 Evaluation and management of inpatient OTILIO Naqvi [facility] Start: 11-03-2023 End: 11-03-2023 Admission to same day surgery center Amina Nieto MD Work Phone: General Surgery Comment on above: BMI 60.0-69.9, adult (HCC) (Primary Dx); S/P bariatric surgery Start: 11-03-2023 End: 11-03-2023 Telemedicine consultation with patient Amina Nieto MD Work Phone: General Surgery Start: 11-03-2023 End: 11-03-2023 ambulatory AMINA NIETO Facility:[facility] Start: 11-02-2023 End: 11-02-2023 Admission to [...] surgery Start: 11-02-2023 End: 11-02-2023 [facility] Start: 11-02-2023 End: 11-02-2023 Telemedicine consultation with patient Rupinder Colbert RD Work Phone: General Surgery Start: 10-28-2023 End: 10-28-2023 ambulatory ELIZABET SIMENTAL Facility:[facility] Start: 10-20-2023 End: 10-20-2023 ambulatory OTILIO Naqvi [facility] Start: 10-20-2023 Encounter for other preprocedural examination [facility] Start: 10-20-2023 End: 10-22-2023 ambulatory [facility] Start: 10-13-2023 End: 10-13-2023 ambulatory OTILIO PRITCHETTSTON Not Available Start: 10-07-2023 End: 10-07-2023 ambulatory BUSHRA NORIEGAALISON Not Available Start: 09-16-2023 End: 09-16-2023 ambulatory KIKO SANCHEZO Not Available Start: 09-07-2023 End: 09-07-2023 ambulatory JOE GRANDA Facility:[facility] Start: 09-07-2023 End: 09-07-2023 Patient encounter [...] Start: 08-31-2023 End: 08-31-2023 ambulatory JOE GRANDA Facility:[facility] Start: 08-31-2023 End: 08-31-2023 Telemedicine consultation with patient Rupinder Colbert RD Work Phone: [facility] Start: 08-19-2023 End: 08-19-2023 ambulatory Alex [...] Alex Monsivais RD Work Phone: [facility] Start: 08-17-2023 End: 08-17-2023 ambulatory JOE GRANDA Facility:[facility] Start: 08-17-2023 End: 08-17-2023 Patient encounter procedure Jayshree Huffman APRN.SEED TRUCKER Work Phone: Endocrinology BMI Comment on above: S/P gastrointestinal surgery, follow-up exam (Primary Dx); Status post biliopancreatic diversion with duodenal switch; Post-operative nausea and vomiting Start: 08-13-2023 Telephone encounter Niki Peterson RN General Surgery Comment on above: Post Op Start: 08-04-2023 End: 08-11-2023 Evaluation and management of inpatient JOE GRANDA Facility:[facility] Start: 08-03-2023 Telephone encounter Silvia Curry RN General Surgery Start: 07-22-2023 End: 07-22-2023 ambulatory ELIZABET SIMENTAL Facility:[facility] Start: 07-22-2023 Encounter for other preprocedural examination JEO GRANDA [facility] Start: 07-21-2023 End: 07-21-2023 ambulatory JOE GRANDA Facility:[facility] Start: 07-20-2023 End: 07-20-2023 ambulatory JOE GRANDA Facility:[facility] Start: 07-14-2023 End: 07-14-2023 ambulatory ELIZABET SIMENTAL Facility:[facility] Start: 07-13-2023 End: 07-13-2023 ambulatory ELIZABET SIMENTAL Facility:[facility] Start: 05-09-2023 Admission to [facility] Joe Granda MD Work Phone: Endocrinology BMI Comment on above: About surgery Start: 05-09-2023 ambulatory Joe izquierdo MD Work Phone: [facility] Start: 05-08-2023 ambulatory Joe izquierdo MD Work Phone: General Surgery Comment on above: Confirming Or Date Start: 05-08-2023 E-mail encounter fro m caregiver Joe Granda MD Work Phone: [facility] Start: 04-30-2023 End: 04-30-2023 ambulatory SHAUNNA PERSAUD Facility:[facility] Start: 04-27-2023 Telephone encounter Joe sargent MD Work Phone: Endocrinology BMI Start: 04-13-2023 End: 04-13-[address] Work Phone: General Surgery Comment on above: Patient left without being seen (Primary Dx) Start: 04-13-2023 End: 04-13-2023 Telemedicine consultation with patient Rupinder Sayra OLIVAS Work Phone: [facility] Start: 03-31-2023 End: 04-01-2023 Evaluation and management of inpatient JOE GRANDA Facility:[facility] Start: 03-10-2023 End: 03-10-2023 [facility] [place] [facility] Work Phone: Pre Anesthesia Comment on above: Pre-op evaluation (P rimary Dx); Morbid obesity with body mass index of 60.0-69.9 in adult ([facility]); Gastroesophageal reflux disease, unspecified whether esophagitis present; TONEY on CPAP; Bipolar affective disorder, remission status unspecified ([facility]); Thrombocytosis; Migraine without status migrainosus, not intractable, unspecified migraine type Surgery question Start: 03-10-2023 End: 03-10-2023 Preprocedural examination done [place] [facility] Work Phone: [facility] Work Phone: Start: 03-05-2023 End: 03-05-2023 [facility] Mireille Davismichelle OLIVAS Work Phone: General Surgery Comment on above: Weight gain followin g gastric bypass surgery (Primary Dx); Abnormal weight gain; Preop testing; Snoring; Sleep-disordered breathing; Fatigue, unspecified type; S/P bariatric surgery; S/P gastric sleeve procedure; Dietary counseling and surveillance; BMI 60.0-69.9, adult (HCC) Start: 03-05-2023 End: 03-05-2023 Patient encounter status Mireille Davismichelle OLIVAS Work Phone: [facility] Work Phone: Start: 02-26-2023 End: 02-26-2023 ambulatory [facility] Facility:[facility] Start: 01-23-2023 End: 01-23-2023 [facility] Facility:[facility] Start: 01-15-2023 End: 01-15-2023 ambulatory [facility] Facility:[facility] Start: 01-15-2023 Encounter for other preprocedural examination JOE GRANDA [facility] Start: 01-09-2023 End: 01-09-2023 ambulatory JOE GRANDA Facility:[facility] Start: 01-05-2023 Telephone encounter Joe sargent [...] Start: 12-15-2022 End: 12-15-2022 ambulatory MIREILLE DAO Facility:[facility] Start: 12-15-2022 End: 12-15-2022 Telemedicine consultation with patient Mireille Davismichelle OLIVAS Work Phone: [facility] Start: 12-13-2022 Office outpatient vi sit [address] [facility] Start: 12-13-2022 End: 12-13-2022 ambulatory [facility] [employer] Other Start: 12-03-2022 Admission to [facility] Joe Granda MD Work Phone: General Surgery Comment on above: Insurance Authorizat ion (Not Real Surgery Date) Start: 12-03-2022 ambulatory Joe izquierdo MD Work Phone: [facility] Start: 11-03-2022 End: 11-04-2022 ambulatory DR DOCTOR ALFARO Facility:[facility]1 Start: 08-27-2022 End: 08-28-[address] DOCTOR ALFARO Facility:[facility] Start: 08-19-2022 End: 08-19-2022 ambulatory MICHELLE GOMEZ . Facility:[facility] Start: 08-17-2022 Encounter for other preprocedural examination DR DOCTOR ALFARO [facility] Start: 08-12-2022 End: 08-13-[address] DOCTOR ALFARO Facility:[facility] Start: 08-12-2022 End: 08-13-2022 Encounter for other preprocedural examination DR DOCTOR ALFARO Facility:[facility] Start: 07-22-[address] DOCTOR ALFARO Facility :[facility] Start: 06-04-2022 End: 06-04-2022 [facility] Amina Nieto MD Work Phone: Endocrinology BMI [...] Start: 04-16-2022 End: 04-16-2022 ambulatory Christa Tyler Facility:[facility] Start: 04-16-2022 End: 04-16-2022 Patient encounter procedure [facility] Start: 04-16-2022 End: 04-16-2022 ambulatory Joe Granda MD Work Phone: Endocrinology BMI Comment on above: Morbid obesity with body mass index of 60.0-69.9 in adult (HCC) (Primary Dx); Gastroesophageal reflux disease, unspecified whether esophagitis present Start: 04-16-2022 End: 04-16-2022 Telemedicine consultation with patient Joe Granda MD Work Phone: [facility] Start: 04-16-2022 End: 04-16-2022 ambulatory NON STAFF [facility] Work Phone: Start: 04-16-2022 Office outpatient vi sit [address] [facility] Start: 04-15-2022 ambulatory Pao Hodgson RN Work Phone: Endocrinology BMI Comment on above: [facility] Start: 04-15-2022 E-mail encounter fro m caregiver Pao Hodgson RN Work Phone: [facility] Start: 04-11-2022 End: 04-12-[address] ESTELLA WHITEHEAD Facility:[facility] Start: 04-01-2022 End: 04-01-[address] KAT Martínez Facility:[facility] Start: 03-27-2022 End: 03-27-2022 ambulatory Rob Garcia Other [facility] [employer] Other Start: 03-27-2022 Telephone encounter Rob [facility]aldiv[facility] Start: 03-10-2022 End: 03-10-2022 ambulatory Joe Granda MD Work Phone: Endocrinology BMI Comment on above: History of sleeve ga strectomy (Primary Dx) Start: 03-10-2022 End: 03-10-2022 Telemedicine consultation with patient Joe Granda MD Work Phone: [facility] Start: 02-17-2022 End: 02-17-2022 ambulatory Joe Granda MD Work Phone: Endocrinology BMI Comment on above: NO SHOW (Primary Dx) Start: 02-17-2022 End: 02-17-2022 Telemedicine consultation with patient Joe Granda MD Work Phone: [facility] Start: 02-12-2022 End: 02-12-2022 Subsequent hospital visit by physician [facility] Work Phone: [facility] Radiology CT Scan Comment on [...] Joe Granda MD Work Phone: [facility] Start: 01-17-2022 End: 01-17-2022 ambulatory Alex [...] patient Akosua Peraza RD Work Phone: [facility] Start: 11-13-2021 End: 11-13-2021 ambulatory Christa Tyler Other [employer] Other Start: 11-13-2021 Office outpatient vi sit [...] 10-28-2021 End: 10-28-2021 ambulatory Estella Nguyen Other [employer] Other Start: 10-28-2021 Telephone [address] Estella Nguyen [facility] Start: 10-23-2021 End: 10-23-2021 ambulatory Celsa Argueta Other [employer] Other Start: 10-23-2021 Telephone encounter Celsa Argueta [facility] Start: 10-11-2021 End: 10-11-2021 ambulatory Bambi Gonzalez Other [employer] Other Start: 10-11-2021 Patient encounter procedure Bambi Gonzalez [facility] Start: 10-03-2021 End: 10-03-2021 ambulatory Rupinder Blakely Other [facility] [employer] Other Start: 10-03-2021 Office outpatient vi sit 25 minutes Rupinder Blakely [facility] Start: 09-30-2021 Office consultation new/estab patient 40 min Prince Horvath Work Phone: [id number] Work Phone: Start: 09-25-2021 Orders Only Joe izquierdo MD Work Phone: General Surgery Comment on above: Dysphagia, unspecifi ed type (Primary Dx); Gastroesophageal reflux disease, unspecified whether esophagitis present; History of sleeve gastrectomy Start: 09-24-2021 E-mail encounter rajiv m caregiver Jayshree Nathanael [employer] Work Phone: [facility] Start: 09-24-2021 Follow-up encounter Jayshree tilley APRN.SEED TRUCKER Work Phone: General Surgery Comment on above: Appointment follow u p Start: 09-23-2021 End: 09-23-2021 ambulatory Jayshree Sampsonjustyna [employer] Work Phone: General Surgery Comment on above: Gastroesophageal ref lux disease, unspecified whether esophagitis present (Primary Dx); Class 3 severe obesity with serious comorbidity and body mass index (BMI) of 60.0 to 69.9 in adult, unspecified obesity type (HCC); TONEY on CPAP; S/P laparoscopic sleeve gastrectomy; Postoperative malabsorption Start: 09-23-2021 End: 09-23-2021 Telemedicine consultation with patient Jayshree Huffman [employer] Work Phone: [facility] Start: 05-17-2021 End: 05-17-2021 Office outpatient new 45 minutes Humza Walter MD Work Phone: [facility] Comment on above: S/P laparoscopic sle terra gastrectomy (Primary Dx); TONEY on CPAP; Morbid obesity with body mass index of 50 or higher; Gastroesophageal reflux disease, unspecified whether esophagitis present; Screening for viral disease; Other intestinal malabsorption Start: 04-06-2020 End: 04-06-2020 Patient encounter procedure KYLAH VARGAS [facility] Start: 04-06-2020 End: 04-06-2020 Subsequent hospital visit by physician Kylah Vargas Work Phone: [facility] [place] Comment on above: S/P laparoscopic sle terra gastrectomy (Primary Dx) Start: 04-02-2020 End: 04-07-2020 Patient encounter procedure CHANA THOMAS [facility] Start: 04-02-2020 Patient encounter procedure [facility] Start: 04-02-2020 End: 04-06-2020 Subsequent hospital visit by physician Franklin Covid19 Pat Screening Schedule M[facility]Z PRE ADMIT Comment on above: Preop testing Start: 01-06-2017 End: 01-07-2017 Ambulatory GENEVA OJEDAKATHY [facility] Procedures Date Procedure Procedure Detail Performing Clinician Start: 08-04-2023 History of gastrointestinal tract bypass S/P biliopancreatic diversion with duodenal switch Rupinder Colbert RD Work Phone: Start: 07-22-2023 Antibody screen JOE GRANDA Comment on above: Order Comment: Specimen Type: BLOOD SPEC IMEN Ordering Facility: [facility] Address: [address] [place] [address] Performed By: #### 2 [id number], [id number], [id number] #### [facility] CLIA [id number] [address] [place] [address] [place] Start: 04-16-2022 X-ray of right foot Start: 02-12-2022 Ct abdomen & pelvis w/contrast material Joe Granda MD Work Phone: Start: 12-18-2021 Esophagogastroduodenoscopy transoral diagnostic Jayshree Huffman APRN.SEED TRUCKER Work Phone: Start: 08-19-2021 Adult depression screening assessment Jayshree Huffman APRN.SEED TRUCKER Work Phone: Start: 04-06-2020 Level iv surg [...] biliopancreatic diversion with duodenal switch Jayshree Huffman [employer]ARDENER.SE[employer] TRUCKER Work Phone: History of gastroint estinal tract bypass S/P biliopancreatic diversion with duodenal switch Alex Monsivais RD Work Phone: History of gastroint estinal tract bypass S/P biliopancreatic diversion with duodenal switch Jayshree Huffman [employer] GARDENER.SEED TRUCKER Work Phone: History of gastroint estinal tract bypass S/P biliopancreatic diversion with duodenal switch Jayshree Huffman [employer]ET GARDENER.SEED TRUCKER Work Phone: Rajwinder Elizondo Work Phone: Plan of Treatment Date Care Activity Detail Author Start: 08-11-2029 DTaP/Tdap/Td vaccine (2 - Td) DTaP/Tdap/Td vaccine (2 - Td) [place] Start: 08-11-2029 Urine microalbumin profile DTaP,Tdap,Td Vaccine (2 - Td or Tdap) [facility] Start: 01-03-2025 Meningococcal (ACWY) vaccine (3 - Risk start after 7 months 2-dose series) Meningococcal (ACWY) vaccine (3 - Risk start after 7 months 2-dose series) [place] Start: 05-05-2024 End: 05-05-2024 Patient encounter procedure Endocrinology BMI Comment on above: 6 mo post op Start: 04-19-2024 End: 04-19-2024 Follow-up encounter 04/19/2024 11:30 AM EDT [facility] General Surgery [address] [place] [address] Amina Nieto MD [address] [place] [address] FOLLOW UP General Surgery Comment on above: FOLLOW UP Start: 02-28-2024 Covid-19 Vaccine ( season) Covid-19 Vaccine ( season) [facility] Start: 02-28-2024 Influenza vaccination [facility] Start: 02-10-2024 End: 02-10-2024 Follow-up encounter 02/10/2024 2:15 PM EDT [facility] Endocrinology BMI [address] [place] [address] Amina Nieto MD [address] [place] [address] follow up Endocrinology BMI Comment on above: follow up Start: 11-18-2023 End: 11-18-2023 ambulatory 11/18/2023 11:30 AM EDT Results Only [facility] [address] [place] [address] [place] [address] [facility] Start: 10-26-2023 End: 01-25-2024 25-hydroxyvitamin D3 [Mass/volume] in Serum or Plasma VITAMIN D 25 HYDROXY Lab Routine S/P biliopancreatic diversion with duodenal switch Impaired intestinal absorption Expected: 10/26/2023 (Approximate), Expires: 01/25/2024 [facility] Work Phone: Comment on above: Expected: 10/26/2023 (Approximate), Expi res: 01/25/2024 Start: 10-26-2023 End: 01-25-2024 Alpha tocopherol [Mass/volume] in Serum or Plasma VITAMIN E/TOCOPHEROL Lab Routine S/P biliopancreatic diversion with duodenal switch Impaired intestinal absorption Expected: 10/26/2023 (Approximate), Expires: 01/25/2024 [facility] Work Phone: Comment on above: Expected: 10/26/2023 (Approximate), Expi res: 01/25/2024 Start: 10-26-2023 End: 01-25-2024 CBC panel - Blood by Automated count CBC Lab Routine S/P biliopancreatic diversion with duodenal switch Open abdominal incision with drainage, subsequent encounter Impaired intestinal absorption Expected: 10/26/2023 (Approximate), Expires: 01/25/2024 [facility] Work Phone: Comment on above: Expected: 10/26/2023 (Approximate), Expi res: 01/25/2024 Start: 10-26-2023 End: 01-25-2024 Cobalamin (Vitamin B12) [Mass/volume] in Serum or Plasma VITAMIN B12 BLOOD Lab Routine S/P biliopancreatic diversion with duodenal switch Impaired intestinal absorption Expected: 10/26/2023 (Approximate), Expires: 01/25/2024 [facility] Work Phone: Comment on above: Expected: 10/26/2023 (Approximate), Expi res: 01/25/2024 Start: 10-26-2023 End: 01-25-2024 Comprehensive metabolic 2000 panel - Serum or Plasma COMP METABOLIC PANEL Lab Routine S/P biliopancreatic diversion with duodenal switch Impaired intestinal absorption Expected: 10/26/2023 (Approximate), Expires: 01/25/2024 [facility] Work Phone: Comment on above: Expected: 10/26/2023 (Approximate), Expi res: 01/25/2024 Start: 10-26-2023 End: 01-25-2024 Ferritin [Mass/volume] in Serum or Plasma FERRITIN BLD Lab Routine S/P biliopancreatic diversion with duodenal switch Impaired intestinal absorption Expected: 10/26/2023 (Approximate), Expires: 01/25/2024 [facility] Work Phone: Comment on above: Expected: 10/26/2023 (Approximate), Expi res: 01/25/2024 Start: 10-26-2023 End: 01-25-2024 Folate [Mass/volume] in Serum or Plasma FOLATE SERUM Lab Routine S/P biliopancreatic diversion with duodenal switch Impaired intestinal absorption Expected: 10/26/2023 (Approximate), Expires: 01/25/2024 [facility] Work Phone: Comment on above: Expected: 10/26/2023 (Approximate), Expi res: 01/25/2024 Start: 10-26-2023 End: 01-25-2024 Hemoglobin A1c in Blood HGB A1C Lab Routine S/P biliopancreatic diversion with duodenal switch Impaired intestinal absorption Expected: 10/26/2023 (Approximate), Expires: 01/25/2024 [facility] Work Phone: Comment on above: Expected: 10/26/2023 (Approximate), Expi res: 01/25/2024 Start: 10-26-2023 End: 01-25-2024 Iron and Iron binding capacity panel - Serum or Plasma IRON + TIBC Lab Routine S/P biliopancreatic diversion with duodenal switch Impaired intestinal absorption Expected: 10/26/2023 (Approximate), Expires: 01/25/2024 [facility] Work Phone: Comment on above: Expected: 10/26/2023 (Approximate), Expi res: 01/25/2024 Start: 10-26-2023 End: 01-25-2024 Parathyrin.intact [Mass/volume] in Serum or Plasma PTH INTACT BLD Lab Routine S/P biliopancreatic diversion with duodenal switch Impaired intestinal absorption Expected: 10/26/2023 (Approximate), Expires: 01/25/2024 [facility] Work Phone: Comment on above: Expected: 10/26/2023 (Approximate), Expi res: 01/25/2024 Start: 10-26-2023 End: 01-25-2024 Retinol [Mass/volume] in Serum or Plasma VITAMIN A/RETINOL Lab Routine S/P biliopancreatic diversion with duodenal switch Impaired intestinal absorption Expected: 10/26/2023 (Approximate), Expires: 01/25/2024 [facility] Work Phone: Comment on above: Expected: 10/26/2023 (Approximate), Expi res: 01/25/2024 Start: 10-26-2023 End: 01-25-2024 VITAMIN B1 (THIAMINE), WHOLE BLOOD VITAMIN B1 (THIAMINE), WHOLE BLOOD Lab Routine S/P biliopancreatic diversion with duodenal switch Impaired intestinal absorption Expected: 10/26/2023 (Approximate), Expires: 01/25/2024 [facility] Work Phone: Comment on above: Expected: 10/26/2023 (Approximate), Expi res: 01/25/2024 Start: 10-26-2023 End: 01-25-2024 VITAMIN K VITAMIN K Lab Routine S/P biliopancreatic diversion with duodenal switch Impaired intestinal absorption Expected: 10/26/2023 (Approximate), Expires: 01/25/2024 [facility] Work Phone: Comment on above: Expected: 10/26/2023 (Approximate), Expi res: 01/25/2024 Start: 10-26-2023 End: 01-25-2024 Zinc [Mass/volume] in Serum or Plasma ZINC BLD Lab Routine S/P biliopancreatic diversion with duodenal switch Impaired intestinal absorption Expected: 10/26/2023 (Approximate), Expires: 01/25/2024 [facility] Work Phone: Comment on above: Expected: 10/26/2023 (Approximate), Expi res: 01/25/2024 Start: 06-29-2023 Depression Assessment Depression Assessment [facility] Start: 02-27-2023 Covid-19 Vaccine () Covid-19 Vaccine () [facility] Start: 02-27-2023 Influenza vaccination [facility] Start: 08-19-2022 Adult depression screening assessment DEPRESSION SCREENING [facility] Start: 06-29-2022 DEPRESSION ASSESSMENT DEPRESSION ASSESSMENT [facility] Start: 05-13-2022 End: 08-23-2022 Coagulation factor VIII activity actual/normal in Platelet poor plasma by Coagulation assay FACTOR VIII:C ASSAY Lab Routine BMI 70 and over, adult (HCC) Gastroesophageal reflux disease, unspecified whether esophagitis present Expected: 05/13/2022 (Approximate), Expires: 08/23/2022 [facility] Work Phone: Comment on above: Expected: 05/13/2022 (Approximate), Expi res: 08/23/2022 Start: 05-13-2022 End: 08-23-2022 CONFIRM BLOOD TYPE CONFIRM BLOOD TYPE Blood Bank Routine BMI 70 and over, adult (HCC) Gastroesophageal reflux disease, unspecified whether esophagitis present Expected: 05/13/2022 (Approximate), Expires: 08/23/2022 [facility] Work Phone: Comment on above: Expected: 05/13/2022 (Approximate), Expi res: 08/23/2022 Start: 05-13-2022 End: 08-23-2022 TYPE AND SCREEN,30 DAY TYPE AND SCREEN,30 DAY Blood Bank Routine BMI 70 and over, adult (HCC) Gastroesophageal reflux disease, unspecified whether esophagitis present Expected: 05/13/2022 (Approximate), Expires: 08/23/2022 [facility] Work Phone: Comment on above: Expected: 05/13/2022 (Approximate), Expi res: 08/23/2022 Start: 03-10-2022 End: 05-10-2022 25-hydroxyvitamin D3 [Mass/volume] in Serum or Plasma VITAMIN D 25 HYDROXY Lab Routine History of sleeve gastrectomy Expected: 03/10/2022, Expires: 05/10/2022 [facility] Work Phone: Comment on above: Expected: 03/10/2022, Expires: 2 Start: 03-10-2022 End: 05-10-2022 CBC W Auto Differential panel - Blood CBC + DIFF Lab Routine History of sleeve gastrectomy Expected: 03/10/2022, Expires: 05/10/2022 [facility] Work Phone: Comment on above: Expected: 03/10/2022, Expires: 2 Start: 03-10-2022 End: 05-10-2022 Cobalamin (Vitamin B12) [Mass/volume] in Serum or Plasma VITAMIN B12 BLOOD Lab Routine History of sleeve gastrectomy Expected: 03/10/2022, Expires: 05/10/2022 [facility] Work Phone: Comment on above: Expected: 03/10/2022, Expires: 2 Start: 03-10-2022 End: 05-10-2022 Comprehensive metabolic 2000 panel - Serum or Plasma COMP METABOLIC PANEL Lab Routine History of sleeve gastrectomy Expected: 03/10/2022, Expires: 05/10/2022 [facility] Work Phone: Comment on above: Expected: 03/10/2022, Expires: 2 Start: 03-10-2022 End: 05-10-2022 Folate [Mass/volume] in Serum or Plasma FOLATE SERUM Lab Routine History of sleeve gastrectomy Expected: 03/10/2022, Expires: 05/10/2022 [facility] Work Phone: Comment on above: Expected: 03/10/2022, Expires: 2 Start: 03-10-2022 End: 05-10-2022 Iron and Iron binding capacity panel - Serum or Plasma IRON + TIBC Lab Routine History of sleeve gastrectomy Expected: 03/10/2022, Expires: 05/10/2022 [facility] Work Phone: Comment on above: Expected: 03/10/2022, Expires: 2 Start: 03-10-2022 End: 05-10-2022 Prealbumin [Mass/volume] in Serum or Plasma PREALBUMIN BLD Lab Routine History of sleeve gastrectomy Expected: 03/10/2022, Expires: 05/10/2022 [facility] Work Phone: Comment on above: Expected: 03/10/2022, Expires: 2 Start: 03-10-2022 End: 05-10-2022 VITAMIN B1 (THIAMINE), WHOLE BLOOD VITAMIN B1 (THIAMINE), WHOLE BLOOD Lab Routine History of sleeve gastrectomy Expected: 03/10/2022, Expires: 05/10/2022 [facility] Work Phone: Comment on above: Expected: 03/10/2022, Expires: 2 Start: 02-27-2022 Influenza vaccination INFLUENZA (#1) [facility] Start: 12-01-2021 COVID-19 VACCINE (3 - Booster for Pfizer series) COVID-19 VACCINE (3 - Booster for Pfizer series) [facility] Start: 11-04-2021 End: 01-04-2022 CBC W Auto Differential panel - Blood CBC + DIFF Lab Routine History of sleeve gastrectomy Expected: 11/04/2021, Expires: 01/04/2022 [facility] Work Phone: Comment on above: Expected: 11/04/2021, Expires: 2 Start: 11-04-2021 End: 01-04-2022 Comprehensive metabolic 2000 panel - Serum or Plasma COMP METABOLIC PANEL Lab Routine History of sleeve gastrectomy Expected: 11/04/2021, Expires: 01/04/2022 [facility] Work Phone: Comment on above: Expected: 11/04/2021, Expires: 2 Start: 11-04-2021 End: 01-04-2022 Folate [Mass/volume] in Serum or Plasma FOLATE SERUM Lab Routine History of sleeve gastrectomy Expected: 11/04/2021, Expires: 01/04/2022 [facility] Work Phone: Comment on above: Expected: 11/04/2021, Expires: 2 Start: 11-04-2021 End: 01-04-2022 IRON + TIBC IRON + TIBC Lab Routine History of sleeve gastrectomy Expected: 11/04/2021, Expires: 01/04/2022 [facility] Work Phone: Comment on above: Expected: 11/04/2021, Expires: 2 Start: 11-04-2021 End: 01-04-2022 LIPID PANEL BASIC LIPID PANEL BASIC Lab Routine History of sleeve gastrectomy Expected: 11/04/2021, Expires: 01/04/2022 [facility] Work Phone: Comment on above: Expected: 11/04/2021, Expires: 2 Start: 11-04-2021 End: 01-04-2022 Prealbumin [Mass/volume] in Serum or Plasma PREALBUMIN BLD Lab Routine History of sleeve gastrectomy Expected: 11/04/2021, Expires: 01/04/2022 [facility] Work Phone: Comment on above: Expected: 11/04/2021, Expires: 2 Start: 11-04-2021 End: 01-04-2022 VITAMIN B1 (THIAMINE), WHOLE BLOOD VITAMIN B1 (THIAMINE), WHOLE BLOOD Lab Routine History of sleeve gastrectomy Expected: 11/04/2021, Expires: 01/04/2022 [facility] Work Phone: Comment on above: Expected: 11/04/2021, Expires: 2 Start: 11-04-2021 End: 01-04-2022 VITAMIN B12 BLOOD VITAMIN B12 BLOOD Lab Routine History of sleeve gastrectomy Expected: 11/04/2021, Expires: 01/04/2022 [facility] Work Phone: Comment on above: Expected: 11/04/2021, Expires: 2 Start: 11-04-2021 End: 01-04-2022 VITAMIN D 25 HYDROXY VITAMIN D 25 HYDROXY Lab Routine History of sleeve gastrectomy Expected: 11/04/2021, Expires: 01/04/2022 [facility] Work Phone: Comment on above: Expected: 11/04/2021, Expires: 2 Start: 09-23-2021 End: 11-23-2021 CBC panel - Blood by Automated count CBC Lab Routine Gastroesophageal reflux disease, unspecified whether esophagitis present Class 3 severe obesity with serious comorbidity and body mass index (BMI) of 60.0 to 69.9 in adult, unspecified obesity type (HCC) Postoperative malabsorption Expected: 09/23/2021, Expires: 11/23/2021 [facility] Work Phone: Comment on above: Expected: 09/23/2021, Expires: 2 Start: 09-23-2021 End: 11-23-2021 Choriogonadotropin ( test) [Presence] in Urine HCG QUAL UR Lab Routine Gastroesophageal reflux disease, unspecified whether esophagitis present Class 3 severe obesity with serious comorbidity and body mass index (BMI) of 60.0 to 69.9 in adult, unspecified obesity type (HCC) Postoperative malabsorption Expected: 09/23/2021, Expires: 11/23/2021 [facility] Work Phone: Comment on above: Expected: 09/23/2021, Expires: 2 Start: 09-23-2021 End: 11-23-2021 Comprehensive metabolic 2000 panel - Serum or Plasma COMP METABOLIC PANEL Lab Routine Gastroesophageal reflux disease, unspecified whether esophagitis present Class 3 severe obesity with serious comorbidity and body mass index (BMI) of 60.0 to 69.9 in adult, unspecified obesity type (HCC) Postoperative malabsorption Expected: 09/23/2021, Expires: 11/23/2021 [facility] Work Phone: Comment on above: Expected: 09/23/2021, Expires: 2 Start: 09-23-2021 End: 11-23-2021 FERRITIN BLD FERRITIN BLD Lab Routine Gastroesophageal reflux disease, unspecified whether esophagitis present Class 3 severe obesity with serious comorbidity and body mass index (BMI) of 60.0 to 69.9 in adult, unspecified obesity type (HCC) Postoperative malabsorption Expected: 09/23/2021, Expires: 11/23/2021 [facility] Work Phone: Comment on above: Expected: 09/23/2021, Expires: 2 Start: 09-23-2021 End: 11-23-2021 Folate [Mass/volume] in Serum or Plasma FOLATE SERUM Lab Routine Gastroesophageal reflux disease, unspecified whether esophagitis present Class 3 severe obesity with serious comorbidity and body mass index (BMI) of 60.0 to 69.9 in adult, unspecified obesity type (HCC) Postoperative malabsorption Expected: 09/23/2021, Expires: 11/23/2021 [facility] Work Phone: Comment on above: Expected: 09/23/2021, Expires: 2 Start: 09-23-2021 End: 11-23-2021 Hemoglobin A1c/Hemoglobin.total in Blood HGB A1C Lab Routine Gastroesophageal reflux disease, unspecified whether esophagitis present Class 3 severe obesity with serious comorbidity and body mass index (BMI) of 60.0 to 69.9 in adult, unspecified obesity type (HCC) Postoperative malabsorption Expected: 09/23/2021, Expires: 11/23/2021 [facility] Work Phone: Comment on above: Expected: 09/23/2021, Expires: 2 Start: 09-23-2021 End: 11-23-2021 IRON + TIBC IRON + TIBC Lab Routine Gastroesophageal reflux disease, unspecified whether esophagitis present Class 3 severe obesity with serious comorbidity and body mass index (BMI) of 60.0 to 69.9 in adult, unspecified obesity type (HCC) Postoperative malabsorption Expected: 09/23/2021, Expires: 11/23/2021 [facility] Work Phone: Comment on above: Expected: 09/23/2021, Expires: 2 Start: 09-23-2021 End: 11-23-2021 LIPID PANEL BASIC LIPID PANEL BASIC Lab Routine Gastroesophageal reflux disease, unspecified whether esophagitis present Class 3 severe obesity with serious comorbidity and body mass index (BMI) of 60.0 to 69.9 in adult, unspecified obesity type (HCC) Postoperative malabsorption Expected: 09/23/2021, Expires: 11/23/2021 [facility] Work Phone: Comment on above: Expected: 09/23/2021, Expires: 2 Start: 09-23-2021 End: 11-23-2021 NICOTINE & METAB, UR NICOTINE & METAB, UR Lab Routine Gastroesophageal reflux disease, unspecified whether esophagitis present Class 3 severe obesity with serious comorbidity and body mass index (BMI) of 60.0 to 69.9 in adult, unspecified obesity type (HCC) Postoperative malabsorption Expected: 09/23/2021, Expires: 11/23/2021 [facility] Work Phone: Comment on above: Expected: 09/23/2021, Expires: 2 Start: 09-23-2021 End: 11-23-2021 PTH INTACT BLD PTH INTACT BLD Lab Routine Gastroesophageal reflux disease, unspecified whether esophagitis present Class 3 severe obesity with serious comorbidity and body mass index (BMI) of 60.0 to 69.9 in adult, unspecified obesity type (HCC) Postoperative malabsorption Expected: 09/23/2021, Expires: 11/23/2021 [facility] Work Phone: Comment on above: Expected: 09/23/2021, Expires: 2 Start: 09-23-2021 End: 11-23-2021 Thyrotropin [Units/volume] in Serum or Plasma TSH BLD Lab Routine Gastroesophageal reflux disease, unspecified whether esophagitis present Class 3 severe obesity with serious comorbidity and body mass index (BMI) of 60.0 to 69.9 in adult, unspecified obesity type (HCC) Postoperative malabsorption Expected: 09/23/2021, Expires: 11/23/2021 [facility] Work Phone: Comment on above: Expected: 09/23/2021, Expires: 2 Start: 09-23-2021 End: 11-23-2021 TOX SCREEN ROUT UR TOX SCREEN ROUT UR Lab Routine Gastroesophageal reflux disease, unspecified whether esophagitis present Class 3 severe obesity with serious comorbidity and body mass index (BMI) of 60.0 to 69.9 in adult, unspecified obesity type (HCC) Postoperative malabsorption Expected: 09/23/2021, Expires: 11/23/2021 [facility] Work Phone: Comment on above: Expected: 09/23/2021, Expires: 2 Start: 09-23-2021 End: 11-23-2021 VITAMIN B1 (THIAMINE), WHOLE BLOOD VITAMIN B1 (THIAMINE), WHOLE BLOOD Lab Routine Gastroesophageal reflux disease, unspecified whether esophagitis present Class 3 severe obesity with serious comorbidity and body mass index (BMI) of 60.0 to 69.9 in adult, unspecified obesity type (HCC) Postoperative malabsorption Expected: 09/23/2021, Expires: 11/23/2021 [facility] Work Phone: Comment on above: Expected: 09/23/2021, Expires: 2 Start: 09-23-2021 End: 11-23-2021 VITAMIN B12 BLOOD VITAMIN B12 BLOOD Lab Routine Gastroesophageal reflux disease, unspecified whether esophagitis present Class 3 severe obesity with serious comorbidity and body mass index (BMI) of 60.0 to 69.9 in adult, unspecified obesity type (HCC) Postoperative malabsorption Expected: 09/23/2021, Expires: 11/23/2021 [facility] Work Phone: Comment on above: Expected: 09/23/2021, Expires: 2 Start: 09-23-2021 End: 11-23-2021 VITAMIN D 25 HYDROXY VITAMIN D 25 HYDROXY Lab Routine Gastroesophageal reflux disease, unspecified whether esophagitis present Class 3 severe obesity with serious comorbidity and body mass index (BMI) of 60.0 to 69.9 in adult, unspecified obesity type (HCC) Postoperative malabsorption Expected: 09/23/2021, Expires: 11/23/2021 [facility] Work Phone: Comment on above: Expected: 09/23/2021, Expires: 2 Start: 08-28-2021 COVID-19 VACCINE (3 - Booster for Pfizer series) COVID-19 VACCINE (3 - Booster for Pfizer series) [facility] Start: 08-28-2021 COVID-19 VACCINE (3 - Pfizer series) COVID-19 VACCINE (3 - Pfizer series) [facility] Start: 06-29-2021 DEPRESSION ASSESSMENT DEPRESSION ASSESSMENT [facility] Start: 05-30-2021 End: 05-30-2021 Nutrition therapy 05/30/2021 Clinical Support Encounter Nutrition and Dietetics Angelo Cedillo, RD [address] [place] [address] [facility] Start: 05-17-2021 End: 05-17-2022 B12/folate level B12 & FOLATE Lab Routine S/P laparoscopic sleeve gastrectomy TONEY on CPAP Morbid obesity with body mass index of 50 or higher Gastroesophageal reflux disease, unspecified whether esophagitis present Other intestinal malabsorption Expected: 05/17/2021, Expires: 05/17/2022 [facility] Comment on above: Expected: 05/17/2021, Expires: 2 Start: 05-17-2021 End: 05-17-2022 Complete blood count with white cell differential, automated CBC, EDIF, PLATELET Lab Routine S/P laparoscopic sleeve gastrectomy TONEY on CPAP Morbid obesity with body mass index of 50 or higher Gastroesophageal reflux disease, unspecified whether esophagitis present Other intestinal malabsorption Expected: 05/17/2021, Expires: 05/17/2022 [facility] Comment on above: Expected: 05/17/2021, Expires: 2 Start: 05-17-2021 End: 05-17-2022 Comprehensive metabolic 2000 panel - Serum or Plasma COMPREHENSIVE METABOLIC PANEL Lab Routine S/P laparoscopic sleeve gastrectomy TONEY on CPAP Morbid obesity with body mass index of 50 or higher Gastroesophageal reflux disease, unspecified whether esophagitis present Other intestinal malabsorption Expected: 05/17/2021, Expires: 05/17/2022 [facility] Comment on above: Expected: 05/17/2021, Expires: 2 Start: 05-17-2021 End: 05-17-2022 Diagnostic radiography of chest, combined PA and lateral XR CHEST PA AND LATERAL Imaging Routine S/P laparoscopic sleeve gastrectomy TONEY on CPAP Morbid obesity with body mass index of 50 or higher Gastroesophageal reflux disease, unspecified whether esophagitis present Other intestinal malabsorption Expected: 05/17/2021, Expires: 05/17/2022 [facility] Comment on above: Expected: 05/17/2021, Expires: 2 Start: 05-17-2021 End: 05-17-2022 Fluoroscopy of upper gastrointestinal tract XR FLUORO UPPER GI, WATER SOLUBLE AND/OR BARIUM CONTRAST Imaging Routine S/P laparoscopic sleeve gastrectomy Gastroesophageal reflux disease, unspecified whether esophagitis present Expected: 05/17/2021, Expires: 05/17/2022 [facility] Comment on above: Expected: 05/17/2021, Expires: 2 Start: 05-17-2021 End: 05-17-2022 Hemoglobin A1c/Hemoglobin.total in Blood HEMOGLOBIN A1C Lab Routine S/P laparoscopic sleeve gastrectomy TONEY on CPAP Morbid obesity with body mass index of 50 or higher Gastroesophageal reflux disease, unspecified whether esophagitis present Other intestinal malabsorption Expected: 05/17/2021, Expires: 05/17/2022 [facility] Comment on above: Expected: 05/17/2021, Expires: 2 Start: 05-17-2021 End: 05-17-2022 IRON/IRON BINDING/TRANSFERRIN IRON/IRON BINDING/TRANSFERRIN Lab Routine S/P laparoscopic sleeve gastrectomy TONEY on CPAP Morbid obesity with body mass index of 50 or higher Gastroesophageal reflux disease, unspecified whether esophagitis present Other intestinal malabsorption Expected: 05/17/2021, Expires: 05/17/2022 [facility] Comment on above: Expected: 05/17/2021, Expires: 2 Start: 05-17-2021 End: 05-17-2022 LIPID PANEL W CALCULATED LDL LIPID PANEL W CALCULATED LDL Lab Routine S/P laparoscopic sleeve gastrectomy TONEY on CPAP Morbid obesity with body mass index of 50 or higher Gastroesophageal reflux disease, unspecified whether esophagitis present Other intestinal malabsorption Expected: 05/17/2021, Expires: 05/17/2022 [facility] Comment on above: Expected: 05/17/2021, Expires: 2 Start: 05-17-2021 End: 05-17-2022 NOVEL CORONAVIRUS LAB 1 - NASOPHARYNGEAL NOVEL CORONAVIRUS LAB 1 - NASOPHARYNGEAL Microbiology STAT Screening for viral disease Expected: 05/17/2021, Expires: 05/17/2022 [facility] Comment on above: Expected: 05/17/2021, Expires: 2 Start: 05-17-2021 End: 05-17-2022 Standard ECG ECG ECG Routine S/P laparoscopic sleeve gastrectomy TONEY on CPAP Morbid obesity with body mass index of 50 or higher Gastroesophageal reflux disease, unspecified whether esophagitis present Other intestinal malabsorption Expected: 05/17/2021, Expires: 05/17/2022 [facility] Comment on above: Expected: 05/17/2021, Expires: 2 Start: 05-17-2021 End: 05-17-2022 Thyrotropin [Units/volume] in Serum or Plasma TSH Lab Routine S/P laparoscopic sleeve gastrectomy TONEY on CPAP Morbid obesity with body mass index of 50 or higher Gastroesophageal reflux disease, unspecified whether esophagitis present Other intestinal malabsorption Expected: 05/17/2021, Expires: 05/17/2022 [facility] Comment on above: Expected: 05/17/2021, Expires: 2 Start: 05-17-2021 End: 05-17-2022 VITAMIN B1 VITAMIN B1 Lab Routine S/P laparoscopic sleeve gastrectomy TONEY on CPAP Morbid obesity with body mass index of 50 or higher Gastroesophageal reflux disease, unspecified whether esophagitis present Other intestinal malabsorption Expected: 05/17/2021, Expires: 05/17/2022 [facility] Comment on above: Expected: 05/17/2021, Expires: 2 Start: 05-17-2021 End: 05-17-2022 VITAMIN D (25-HYDROXY,TOTAL) VITAMIN D (25-HYDROXY,TOTAL) Lab Routine S/P laparoscopic sleeve gastrectomy TONEY on CPAP Morbid obesity with body mass index of 50 or higher Gastroesophageal reflux disease, unspecified whether esophagitis present Other intestinal malabsorption Expected: 05/17/2021, Expires: 05/17/2022 [facility] Comment on above: Expected: 05/17/2021, Expires: 2 Start: 05-17-2021 End: 05-17-2022 ZINC, SERUM ZINC, SERUM Lab Routine S/P laparoscopic sleeve gastrectomy TONEY on CPAP Morbid obesity with body mass index of 50 or higher Gastroesophageal reflux disease, unspecified whether esophagitis present Other intestinal malabsorption Expected: 05/17/2021, Expires: 05/17/2022 [facility] Comment on above: Expected: 05/17/2021, Expires: 2 Start: 02-27-2021 Influenza vaccination INFLUENZA VACCINE (#1) [facility] Start: 04-06-2020 End: 04-06-2021 FL UGI FL UGI Imaging Routine S/P laparoscopic sleeve gastrectomy Expected: 04/06/2020, Expires: 04/06/2021 [place] Comment on above: Expected: 04/06/2020, Expires: 1 Start: 02-28-2020 Influenza vaccination Flu vaccine (#1) [place] Start: 02-27-2020 Pneumococcal 0-64 years Vaccine (2 of 3 - PPSV23) Pneumococcal 0-64 years Vaccine (2 of 3 - PPSV23) [place] Start: 08-31-2019 Hepatitis B Vaccine (3 of 3 - 19+ 3-dose series) Hepatitis B Vaccine (3 of 3 - 19+ 3-dose series) [facility] Start: 2015 HPV TESTING HPV TESTING [facility] Start: 2015 Screening for malignant neoplasm of cervix HPV Testing [facility] Start: 10-16-2011 PAP TESTING PAP TESTING [facility] Start: 10-16-2011 Screening for malignant neoplasm of cervix Pap Testing [facility] Start: 10-15-2009 Screening for malignant neoplasm of cervix Cervical Cancer Screening [facility] Start: 2006 Screening for malignant neoplasm of cervix [facility] Start: 2004 Third diphtheria, tetanus and acellular pertussis (DTaP) vaccination TDAP (ADULT) [facility] Start: 2004 Urine microalbumin profile DTAP,TDAP,TD (1 - Tdap) [facility] Start: 2003 Anxiety Screening Anxiety Screening [facility] Start: 2003 Depression Screening Depression Screening [facility] Start: 2003 HEPATITIS C SCREENING HEPATITIS C SCREENING [facility] Start: 2003 Hepatitis C screening Hepatitis C Screening [facility] Start: 2003 HIV SCREENING HIV SCREENING [facility] Start: 2003 HIV screening HIV Screening [facility] Start: 2003 Tetanus vaccination TETANUS [facility] Start: 2000 HIV screening [facility] Start: 1995 Meningococcal B vaccine (1 of 4 - Increased Risk Bexsero 2-dose series) Meningococcal B vaccine (1 of 4 - Increased Risk Bexsero 2-dose series) [place] Start: 1990 COVID-19 VACCINE (1) COVID-19 VACCINE (1) [facility] Start: 1986 Varicella vaccine (1 of 2 - 2-dose childhood series) Varicella vaccine (1 of 2 - 2-dose childhood series) [place] Start: 1985 HEPATITIS B (1 of 3 - 3-dose series) HEPATITIS B (1 of 3 - 3-dose series) [facility] Start: 1985 Hepatitis C antibody, confirmatory test HEPATITIS C VIRUS SCREENING [facility] End: 04-02-2020 COVID-19 Ambulatory COVID-19 Ambulatory Lab Routine Preop testing 1 Occurrences starting 04/02/2020 until 04/02/2020 [place] Comment on above: 1 Occurrences starting 04/02/2020 until 04/02/2020 End: 12-04-2022 Ct abdomen & pelvis w/contrast material CT ABD/PEL W IVCON Radiology Routine History of sleeve gastrectomy Gastric fistula 1 Occurrences starting 11/04/2021 until 12/04/2022 [facility] Work Phone: Comment on above: 1 Occurrences starting 11/04/2021 until 12/04/2022 End: 09-23-2022 ECG COMPLETE ECG COMPLETE ECG Routine TONEY on CPAP Gastroesophageal reflux disease, unspecified whether esophagitis present Class 3 severe obesity with serious comorbidity and body mass index (BMI) of 60.0 to 69.9 in adult, unspecified obesity type (HCC) Postoperative malabsorption 1 Occurrences starting 09/23/2021 until 09/23/2022 [facility] Work Phone: Comment on above: 1 Occurrences starting 09/23/2021 until 09/23/2022 End: 05-31-2023 ECG COMPLETE ECG COMPLETE ECG Routine Abnormal weight gain Preop testing Snoring Sleep-disordered breathing Fatigue, unspecified type S/P bariatric surgery BMI 70 and over, adult ([facility]) 1 Occurrences starting 06/04/2022 until 05/31/2023 [facility] Work Phone: Comment on above: 1 Occurrences starting 06/04/2022 until 05/31/2023 End: 03-10-2024 ECG COMPLETE ECG COMPLETE ECG Routine Pre-op evaluation Morbid obesity with body mass index of 60.0-69.9 in adult ([facility]) Gastroesophageal reflux disease, unspecified whether esophagitis present TONEY on CPAP Bipolar affective disorder, remission status unspecified ([facility]) Thrombocytosis Migraine without status migrainosus, not intractable, unspecified migraine type 1 Occurrences starting 03/10/2023 until 03/10/2024 [facility] Work Phone: Comment on above: 1 Occurrences starting 03/10/2023 until 03/10/2024 Oxygen therapy [[facility] Data Set] Initiate Oxygen Therapy Protocol Respiratory Care Routine Daily until discontinued starting 04/06/2020 [employer] Comment on above: Daily until discontinued starting 2019 Phase I & II - meter ed glucose Phase I & II - metered glucose Point of Care Testing Routine As Needed until discontinued starting 04/06/2020 [employer] Comment on above: As Needed until discontinued starting End: 05-31-2023 Polysomnogram POLYSOMNOGRAM (PSG) Procedures Routine Abnormal weight gain Preop testing Snoring Sleep-disordered breathing Fatigue, unspecified type S/P bariatric surgery BMI 70 and over, adult ([facility]) 1 Occurrences starting 06/04/2022 until 05/31/2023 [facility] Work Phone: Comment on above: 1 Occurrences starting 06/04/2022 until 05/31/2023 End: 10-23-2022 Radiologic exam chest 2 views XR CHEST 2V FRONTAL/LAT Radiology Routine TONEY on CPAP Gastroesophageal reflux disease, unspecified whether esophagitis present Class 3 severe obesity with serious comorbidity and body mass index (BMI) of 60.0 to 69.9 in adult, unspecified obesity type ([facility]) Postoperative malabsorption 1 Occurrences starting 09/23/2021 until 10/23/2022 [facility] Work Phone: Comment on above: 1 Occurrences starting 09/23/2021 until 10/23/2022 End: 05-18-2023 Radiologic exam chest 2 views XR CHEST 2V FRONTAL/LAT Radiology Routine BMI 70 and over, adult (HCC) Gastroesophageal reflux disease, unspecified whether esophagitis present 1 Occurrences starting 04/18/2022 until 05/18/2023 [facility] Work Phone: Comment on above: 1 Occurrences starting 04/18/2022 until 05/18/2023 End: 07-01-2023 Radiologic exam chest 2 views XR CHEST 2V FRONTAL/LAT Radiology Routine Abnormal weight gain Preop testing Snoring Sleep-disordered breathing Fatigue, unspecified type S/P bariatric surgery BMI 70 and over, adult (HCC) 1 Occurrences starting 06/04/2022 until 07/01/2023 [facility] Work Phone: Comment on above: 1 Occurrences starting 06/04/2022 until 07/01/2023 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 Procedures Routine BMI 70 and over, adult (HCC) Gastroesophageal reflux disease, unspecified whether esophagitis present Ordered: 04/18/2022 [facility] Work Phone: Comment on above: Ordered: 04/18/2022 Surgical Pathology Surgical Path ology Lab Routine Release Upon Ordering for 1 Occurrences starting 04/06/2020 [place] Comment on above: Release Upon Ordering [...] (HCC) 1 Occurrences starting 09/23/2021 until 10/23/2022 [facility] Work Phone: Comment on above: 1 Occurrences starting 09/23/2021 until 10/23/2022 End: 12-04-2022 XR UPPER GI SINGLE CONTRAST XR UPPER GI SINGLE CONTRAST Radiology Routine History of sleeve gastrectomy Gastric fistula 1 Occurrences starting 11/04/2021 until 12/04/2022 [facility] Work Phone: Comment on above: 1 Occurrences starting 11/04/2021 until 12/04/2022 [facility] Immunizations Immunization Date Immunization Notes Care Provider Octavio camacho 06-13-2021 Influenza, injectabl e, Madin [place] Canine Kidney, preservative free, quadrivalent Pac 2 Work Phone: [facility] 06-13-2021 influenza virus vacc ine, unspecified formulation Pac 2 Work Phone: [facility] 01-04-2020 meningococcal oligosaccharide (groups A, C, Y and W-135) diphtheria toxoid conjugate vaccine (MCV4O) Pac 2 Work Phone: [facility] 01-04-2020 meningococcal vaccin e of unknown formulation and unknown serogroups [place], [place] 01-02-2020 pneumococcal conjuga te vaccine, 13 valent Pac 2 Work Phone: [facility] 01-02-2020 tuberculin skin test ; purified protein derivative solution, intradermal Amina Nieto MD Work Phone: [facility] 12-26-2019 tuberculin skin test ; purified protein derivative solution, intradermal Amina Nieto MD Work Phone: [facility] 08-11-2019 tetanus toxoid, redu herbie diphtheria toxoid, and acellular pertussis vaccine, adsorbed Pacc 2 Work Phone: [facility] 06-20-2019 influenza, injectabl e, quadrivalent, preservative free Pacc 2 Work Phone: [facility] 06-07-2019 influenza, injectabl e, quadrivalent, preservative free Pacc 2 Work Phone: [facility] 05-30-2019 influenza, high dose seasonal, preservative-free Pacc 2 Work Phone: [facility] 04-04-2019 hepatitis B vaccine, adult dosage Pacc 2 Work Phone: [facility] 03-02-2019 hepatitis B vaccine, adult dosage Pacc 2 Work Phone: [facility] 05-12-2017 influenza, injectabl e, quadrivalent, preservative free Pacc 2 Work Phone: [facility] 04-27-2015 influenza, injectabl e, [place]in [place] canine kidney, preservative free Pacc 2 Work Phone: [facility] 12-18-2014 haemophilus influenz ae type b vaccine, PRP-T conjugate Pacc 2 Work Phone: [facility] 12-18-2014 meningococcal oligosaccharide (groups A, C, Y and W-135) diphtheria toxoid conjugate vaccine (MCV4O) Pacc 2 Work Phone: [facility] Payers Date Payer Category Payer Medicaid [id number] 2022 Self-pay [id number] 2020 Medicaid [id number] 2020 Unknown [id number] [id number] 2014 Unknown [id number] 1985 Unknown [id number] 2.16.840.1.246105.3.579.2.177 1985 Unknown [id number] 2.16.840.1.007667.3.579.2.173 1985 Unknown [id number] 2.16.840.1.581171.3.579.2.175 1985 Unknown [id number] 2.16.840.1.705306.3.579.2.593 1985 Unknown [id number] 2.16.840.1.097061.3.579.2.593 1985 Unknown [id number] 2.16.840.1.079807.3.579.2.593 1985 Unknown [id number] 2.16.840.1.274236.3.579.2.593 1985 Unknown [id number] 2.16.840.1.961117.3.579.2.593 1985 Unknown [id number] 2.16.840.1.382682.3.579.2.593 1985 Unknown [id number] 2.16.840.1.014126.3.579.2.593 1985 Unknown [id number] 2.16.840.1.226402.3.579.2.593 1985 Unknown [id number] 2.16.840.1.631701.3.579.2.1286 1985 Unknown [id number] 2.16.840.1.655694.3.579.2.1286 1985 Unknown [id number] 2.16.840.1.988808.3.579.2.1286 1985 Unknown [id number] 2.16.840.1.156291.3.579.2.1286 1985 Unknown [id number] 2.16.840.1.380515.3.579.2.1286 1985 Unknown [id number] 2.16.840.1.898333.3.579.2.1286 1985 Unknown [id number] 2.16.840.1.141428.3.579.2.1286 1985 Unknown [id number] 2.16.840.1.408131.3.579.2.1286 1985 Unknown [id number] 2.16.840.1.050020.3.579.2.1285 1985 Unknown [id number] 2.16.840.1.570751.3.579.2.1258 1985 Unknown [id number] 2.16.840.1.267918.3.579.2.1258 1985 Unknown [id number] 2.16.840.1.637983.3.579.2.1258 1985 Unknown [id number] 2.16.840.1.516723.3.579.2.1258 1985 Unknown [id number] 2.16.840.1.411354.3.579.2.1258 1985 Unknown [id number] 2.16.840.1.734458.3.579.2.1258 1985 Unknown [id number] 2.16.840.1.107845.3.579.2.1258 1985 Unknown [id number] 2.16.840.1.850984.3.579.2.1258 1985 Unknown [id number] 2.16.840.1.264716.3.579.2.1258 1985 Unknown [id number] 2.16.840.1.059085.3.579.2.1258 1985 Unknown [id number] 2.16.840.1.378063.3.579.2.1258 1985 Unknown [id number] 2.16.840.1.257349.3.579.2.9 1959 Unknown [id number] 2.16.840.1.090869.19 Unknown [facility] MEDICA[facility] Unknown [id number] 2.16.840.1.761250.3.579.2.531 Unknown [id number] 2.16840.1.698232.3.579.2.531 Social History Date Type Detail Facility Start: 04-06-2020 End: 03-10-2023 Tobacco smoking status NHIS Former smoker [facility] Start: 04-06-2020 Tobacco use and exposure Former user [place] Start: 04-06-2020 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 (finding) [place] Start: 1985 Sex Assigned At Not on file [place] Start: 10-25-2021 End: 02-12-2022 Exposure to SARS-CoV-2 (event) Not sure [place] Start: 05-17-2021 Tobacco smoking stat us [facility] Never smoked tobacco [facility] Start: 05-17-2021 End: 03-10-2023 Tobacco use and exposure Smokeless tobacco non-user [facility] Start: 05-17-2021 Alcohol intake Lifetime non-d suresh (finding) [facility] Start: 12-27-2008 End: 12-27-2013 History of tobacco use Current smoker [facility] Start: 12-27-2008 End: 12-27-2013 History of tobacco use Cigarette Smoker [facility] Start: 05-06-2019 End: 01-15-2023 Cigarettes smoked current (pack per day) - Reported 0.5 [facility] 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; Start: 09-23-2021 End: 11-02-2023 Alcohol intake Ex-drinker (finding) [facility] Start: 09-23-2021 History SDOH Alcohol Comment None since 2012 [facility] Start: 1985 Sex Assigned At Female C [facility] Start: 12-05-2021 End: 01-15-2023 Sex Assigned At [facility] Adult Depression Screening Assessment 0 [facility] Start: 07-09-2021 Gender identity Identifies as female gender (finding) [facility] Start: 07-09-2021 Sexual orientation Heterosexual (davide vital) [facility] Has the electric, [employer], oil, or water company threatened to shut off services in your home in past 12Mo No [facility] (I/We) worried wheandrew [employer] (my/our) food would run out before (I/we) got money to buy more. Never true [facility] Clinical Notes 05-17-2021 to 11-03-2023 Amina [...] visit. 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 (OTHER): -11/02/23 OV BMI/MTanya Huffman -11/02/23 OV BMI/Nutrition/Kristen Colbert CARDIAC: -Procedure Date : Mar 10 2023 EKG Diagnosis: NORMAL SINUS RHYTHM NORMAL ECG documented in this encounter [facility] 11-03-2023 Note HNO ID: [id number] Author: AMINA NIETO MD Service: ? Author Type: Physician Type: Progress Notes Filed: 11/04/2023 16:46 Note Text: I have communicated my name and active licensure. The patient's identity and physical location were verified at the time of this visit. 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 [facility] 11-02-2023 Instructions Jayshree Huffman APRN.CNP - 11/02/2023 4:43 PM EDT Please make a follow up with Dr Nieto for help with further weight loss. You can call the [facility] [phone] to schedule. Let me know if you have trouble getting an appointment documented in this encounter [facility] 11-02-2023 Note HNO ID: [id number] Author: JAYSHREE HUFFMAN APRN.CNP Service: ? Author Type: Nurse Practitioner Type: Progress Notes Filed: 11/02/2023 16:45 Note Text: BMI SURGERY Post Op Clinic Note - virtual visit I have communicated my name and active licensure. The patient's identity and physical location were verified at the time of this visit. Either the patient or their legal claims customer service representative has been informed of the risks [...] loss: 8.623 kg (19 lb 0.2 oz) [place] weight: 66.1 kg (145 lb 10.6 oz) [...] deli black forest 3 slices and cheese (bahamian 2 slices) Snack yesterday - 000 yogurt [...] tobacco given increased (more content not included)... [facility] 11-02-2023 History of Presen t illness Narrative BMI SURGERY Post Op Clinic Note - virtual visit I have communicated my name and active licensure. The patient's identity and physical location were verified at the time of this visit. Either the patient or their legal claims customer service representative has been informed of the risks [...] loss: 8.623 kg (19 lb 0.2 oz) [place] weight: 66.1 kg (145 lb 10.6 oz) [...] deli black forest 3 slices and cheese (bahamian 2 slices) Snack yesterday - 000 yogurt [...] 4 - Moderate documented in this encounter [facility] 11-02-[address] - 11/02/2023 10:34 AM EDT Reviewed nutrition principles of: 1. Continue to take all recommended vitamin/minerals -ProCare DS/LEIDA Bariatric multivitamin with 60 mg Iron (1x per day) AND 7695-2024 mg calcium citrate daily taken in divided [...] Follow up: 6 months post op, scheduling [phone] documented in this encounter [facility] 11-02-2023 History of Presen t illness Narrative I have communicated my name and active licensure. The patient's identity and physical location were verified at the time of this visit. Either the patient or their legal claims customer service representative has been informed of the risks [...] Rate: 2344 Energy needs for weight loss 6044-5353 kcal/day (10-15 harpreet/kg current weight) Protein needs: 96-128 grams protein per day (1.2 g/kg IBW kg) Reviewed nutrition principles of: 1. Continue to take all recommended vitamin/minerals -ProCare DS/LEIDA Bariatric multivitamin with 60 mg Iron (1x per day) AND 0686-7455 mg calcium citrate daily taken in divided [...] Follow up: 6 months post op, scheduling [phone] Appointment Start Time: 9:45am Appointment End Time: 10:20am Time Spent on Consult: 35 minutes - Group Rupinder Colbert RD documented in this encounter [facility] 11-02-2023 Note HNO ID: [id number] Author: RUPINDER COLBERT RD Service: ? Author Type: Registered Dietitian Type: Progress Notes Filed: 11/02/2023 10:34 Note Text: I have communicated my name and active licensure. The patient's identity and physical location were verified at the time of this visit. Either the patient or their legal claims customer service representative has been informed of the risks [...] Rate: 2344 Energy needs for weight loss 0184-5253 kcal/day (10-15 harpreet/kg current weight) Protein needs: 96-128 grams protein per day (1.2 g/kg IBW kg) Reviewed nutrition principles of: 1. Continue to take all recommended vitamin/minerals -ProCare DS/LEIDA Bariatric multivitamin with 60 mg Iron (1x per day) AND 3908-8529 mg calcium citrate daily taken in divided [...] Follow up: 6 months post op, scheduling [phone] Appointment Start Time: 9:45am Appointment End Time: 10:20am Time Spent on Consult: 35 minutes - Group Rupinder Colbert RD [facility] 09-07-2023 Note HNO ID: [id number] Author: JAYSHREE HUFFMAN APRN.SEED TRUCKER Service: ? Author Type: Nurse Practitioner Type: [...] loss: 6.128 kg (13 lb 8.2 oz) [place] weight: 66.1 kg (145 lb 10.6 oz) [...] Orders FOLLOW UP: as scheduled Jayshree Huffman APRN.SEED TRUCKER [facility] 09-07-2023 History of Presen t illness Narrative [...] loss: 6.128 kg (13 lb 8.2 oz) [place] weight: 66.1 kg (145 lb 10.6 oz) [...] Jayshree Huffman APRN.CNP documented in this encounter [facility] 08-31-[address] - 08/31/2023 12:14 PM EST Reviewed nutrition principles of: 1. Continue to take all recommended vitamin/minerals - ProCare DS/LEIDA Bariatric multivitamin with 60 mg Iron (1x per day) AND 9424-9625 mg calcium citrate daily 2. Protein goal: [...] broccoli florets, Claudio lettuce, red-leaf lettuce or [place] lettuce. Remember to chew vegetables thoroughly (chew 25 times) and swallow only when chewing has made it into a mushy pureed consistency. If you have trouble with gas, avoid eating gas-producing vegetables such as onions, cauliflower, garlic, scallions, leeks, [place] sprouts and cabbage. Avoid starchy vegetables such as potatoes (sweet and white), yams, yucca, plantain and corn at this time. Nutrition Monitoring & Evaluation: BMI < 60 Criteria: weight check and patient update Need for Follow up: 3 months post op, scheduling [phone] documented in this encounter [facility] 08-31-2023 Note HNO ID: [id number] Author: CHRISTOPHER SANTIAGO, PhD Service: ? Author Type: Psychologist Type: Progress Notes Filed: 08/31/2023 11:36 Note Text: [facility] Cost Center: [facility] Billing code: Gautam CPT Code: 45675 GROUP PSYCHOTHERAPY 16493 Brief Emotional/Behavioral Assessment with scoring/documentation (3 units) [...] a copy of the consent form on [employer]. The patient consented to a virtual visit and their location was confirmed. I have communicated my name and active licensure. The patient's identity and physical location were verified at the time of this visit. Either the patient or their legal claims customer service representative has been informed of the risks [...] [employer] (more content not included)... [facility] 08-31-2023 History of Presen t illness Narrative I have communicated my name and active licensure. The patient's identity and physical location were verified at the time of this visit. Either the patient or their legal claims customer service representative has been informed of the risks [...] Rate: 2308 Energy needs for weight loss 4588-5814 kcal/day (10-15 harpreet/kg current weight) Protein needs: 96-128 grams protein per day (1.2 g/kg IBW kg) Reviewed nutrition principles of: 1. Continue to take all recommended vitamin/minerals - ProCare DS/LEIDA Bariatric multivitamin with 60 mg Iron (1x per day) AND 8342-4955 mg calcium citrate daily 2. Protein goal: [...] broccoli florets, Claudio lettuce, red-leaf lettuce or [place] lettuce. Remember to chew vegetables thoroughly (chew 25 times) and swallow only when chewing has made it into a mushy pureed consistency. If you have trouble with gas, avoid eating gas-producing vegetables such as onions, cauliflower, garlic, scallions, leeks, [place] sprouts and cabbage. Avoid starchy vegetables such as potatoes (sweet and white), yams, yucca, plantain and corn at this time. Nutrition Monitoring & Evaluation: BMI < 60 Criteria: weight check and patient update Need for Follow up: 3 months post op, scheduling [phone] Appointment Start Time: 9:45am Appointment End Time: 10:35am Time Spent on Consult: 50 minutes - Group Rupinder Colbert RD documented in this encounter [facility] 08-31-2023 Note HNO ID: [id number] Author: RUPINDER COLBERT RD Service: ? Author Type: Registered Dietitian Type: Progress Notes Filed: 08/31/2023 12:14 Note Text: I have communicated my name and active licensure. The patient's identity and physical location were verified at the time of this visit. Either the patient or their legal claims customer service representative has been informed of the risks [...] Rate: 2308 Energy needs for weight loss 1754-7914 kcal/day (10-15 harpreet/kg current weight) Protein needs: 96-128 grams protein per day (1.2 g/kg IBW kg) Reviewed nutrition principles of: 1. Continue to take all recommended vitamin/minerals - ProCare DS/LEIDA Bariatric multivitamin with 60 mg Iron (1x per day) AND 1068-8827 mg calcium citrate daily 2. Protein goal: [...] it is recommended (more content not included)... [facility] 08-19-2023 Instructions Alex Monsivais, BRENDON - 08/19/2023 12:18 PM EST 1. Continue vitamins Research post-op vitamins for LEIDA/DS procedure: - Bariatric Fusion ADEK Complete Capsule (3x per day) AND 4170-1238 mg calcium citrate OR - Bariatric Advantage High ADEK Chewable Multivitamin (2x per day) AND 9578-6471 mg calcium citrate OR -Celebrate multi-ADEK chewable (3x per day) AND 7600-8644 mg calcium citrate AND 1 chewable Iron 45-60 mg AND OR -ProCare DS/LEIDA Bariatric multivitamin with 60 mg Iron (1x per day) AND 6540-4597 mg calcium citrate daily 2. Protein goal: [...] at 1 month) The [facility] [place] [facility] has 2 virtual support group meetings: This is the [employer] link with meeting number that will be used for all of the THURSDAY virtual support groups this year, on the Thursday of each month 5:30-6:30PM Join from the meeting link [email or web address] Join by meeting number Meeting number (access code): [phone] Meeting password: [email or web address] The schedule with dates, times, topics, and facilitators can be found here: [email or web address] [email or web address] This is the [employer] link with meeting number that will be used for the Open Discussion ( Food for Thought ) support group on the Thursday of each month 5:30-6:30PM Join from the meeting link [email or web address] Join by meeting number Meeting number (access code): [phone] Meeting password: [email or web address] Hope to see you there! Nutrition Monitoring & Evaluation: Advance diet to phase 3 by next visit Criteria: patient recall Need for Follow up: 1 month post op documented in this encounter [facility] 08-19-2023 Note HNO ID: [id number] Author: ALEX MONSIVAIS RD Service: ? Author [...] visit. Either the patient or their legal claims customer service representative has been informed of the risks [...] yet taking recommended vitamin/minerals, however plans for Avaak ADEK + 2000 mg calcium citrate. Exercise includes walking most days. Labs not available to evaluate. Reviewed nutrition principles of: 1. Continue vitamins Research post-op vitamins for LEIDA/DS procedure: - Bariatric Fusion ADEK Complete Capsule (3x per day) AND 7370-5161 mg calcium citrate OR - Bariatric Advantage High ADEK Chewable Multivitamin (2x per day) AND 9300-7312 mg calcium citrate OR -Celebrate multi-ADEK chewable (3x per day) AND 1592-1807 mg calcium citrate AND 1 chewable Iron 45-60 mg AND OR -ProCare DS/LEIDA Bariatric multivitamin with 60 mg Iron (1x per day) AND 4781-6224 mg calcium citrate daily 2. Protein goal: [...] at 1 month) The [facility] [place] [facility] has 2 virtual support group meetings: This is the [employer] link with meeting number that will be used for all of the THURSDAY virtual support groups this year, on the Thursday of each month 5:30-6:30PM Join from the meeting link [email or web address] Join by meeting number Meeting number (access code): [phone] Meeting password: [email or web address] The schedule with dates, times, topics, and facilitators can be found here: [email or web address] [email or web address] etienne This is the [employer] link with meeting number that will be used for the Open Discussion ( Food for Thought ) support group on the Thursday of each month 5:30-6:30PM Join from the meeting link [email or web address] Join by meeting number Meeting number (access code): [phone] Meeting password: [email or web address] Hope to see you there! Nutrition Monitoring AND Evaluation: Advance diet to phase 3 by next visit Criteria: patient recall Need for Follow up: 1 month (more content not included)... [facility] 08-19-2023 History of Presen t illness Narrative [...] visit. Either the patient or their legal claims customer service representative has been informed of the risks [...] yet taking recommended vitamin/minerals, however plans for Avaak ADEK + 2000 mg calcium citrate. Exercise includes walking most days. Labs not available to evaluate. Reviewed nutrition principles of: 1. Continue vitamins Research post-op vitamins for LEIDA/DS procedure: - Bariatric Fusion ADEK Complete Capsule (3x per day) AND 1189-5025 mg calcium citrate OR - Bariatric Advantage High ADEK Chewable Multivitamin (2x per day) AND 7558-0748 mg calcium citrate OR -Celebrate multi-ADEK chewable (3x per day) AND 6515-2376 mg calcium citrate AND 1 chewable Iron 45-60 mg AND OR -ProCare DS/ELIDA Bariatric multivitamin with 60 mg Iron (1x per day) AND 5713-9913 mg calcium citrate daily 2. Protein goal: [...] at 1 month) The [facility] [place] [facility] has 2 virtual support group meetings: This is the [employer] link with meeting number that will be used for all of the THURSDAY virtual support groups this year, on the Thursday of each month 5:30-6:30PM Join from the meeting link [email or web address] Join by meeting number Meeting number (access code): [phone] Meeting password: [email or web address] The schedule with dates, times, topics, and facilitators can be found here: [email or web address] [email or web address] [email or web address] This is the [employer] link with meeting number that will be used for the Open Discussion ( Food for Thought ) support group on the Thursday of each month 5:30-6:30PM Join from the meeting link [email or web address] Join by meeting number Meeting number (access code): [phone] Meeting password: [email or web address] Hope to see you there! Nutrition Monitoring & Evaluation: Advance diet to phase 3 by next visit Criteria: patient recall Need for Follow up: 1 month post op Appointment Start Time: 11:45 AM Appointment End Time: 12:15 PM Time Spent on Consult: 30 minutes - Group Alex Monsivais RD documented in this encounter [facility] 08-17-2023 Note HNO ID: [id number] Author: JAYSHREE HUFFMAN APRN.SEED TRUCKER Service: ? Author Type: Nurse Practitioner Type: [...] loss: 8.2 kg (18 lb 1.2 oz) [place] weight: 66.1 kg (145 lb 10.6 oz) [...] refilled zofran Activity: (more content not included)... [facility] 08-17-2023 History of Presen t illness Narrative [...] loss: 8.2 kg (18 lb 1.2 oz) [place] weight: 66.1 kg (145 lb 10.6 oz) [...] Jayshree Huffman APRN.KATTY documented in this encounter [facility] 08-13-2023 Miscellaneous Notes BMI SPECIALTY CARE [...] appt. Reminded patient of how to reach [facility] or their surgeons office. Patient reminded to seek medical attention if they develop chest pain, a sudden onset of shortness of breath or persistent pain in the calf of their legs - BEST TO ALWAYS present to [facility] hospital where you had your surgery Patient verbalized understanding of all advice and instructions given. Niki Peterson RN documented in this encounter [facility] 08-11-2023 Note HNO ID: [id number] Author: ?, ?, ? Service: ? Author Type: ? Type: Plan of Care Filed: 08/11/2023 17:07 Note Text: PHARMACY BEDSIDE DELIVERY SERVICE Patient Name: Susi Ortiz The marked outpatient medications were Filled at: [facility] and delivered to the patient's bedside to [facility] Medication List START taking these medications methocarbamol [...] mg tablet Commonly known as: ABBEY López (Thrill Performer) PAGER: [phone] August 11, 2023 5:05 PM [facility] 08-11-2023 Note HNO ID: [id number] Author: GLENIS NAZARIO MD Service: General Surgery Author Type: Resident Type: Progress Notes Filed: 08/11/2023 07:06 Note Text: General Surgery Progress Note Name: Susi Ortiz Bed: FV-PK3C28/-[id number]-25 ASSESSMENT AND PLAN Susi Ortiz is a [...] Nazario MD General Surgery, Resident Please contact [facility] pager for any questions [phone] during the daytime hours from 6a to 6p. Contact [phone] for nights and weekends Subjective -No acute [...] MG 2.0 1.8 1.8 Imaging None today [facility] 08-10-2023 Note HNO ID: [id number] Author: GLENIS NAZARIO MD Service: General Surgery Author Type: Resident Type: Progress Notes Filed: 08/10/2023 08:01 Note Text: General Surgery Progress Note Name: Susi Ortiz Bed: FV-PK3C28/FV-[id number]-51 ASSESSMENT AND PLAN Susi Ortiz is a [...] Nazario MD General Surgery, Resident Please contact [facility] pager for any questions [phone] during the daytime hours from 6a to 6p. Contact [phone] for nights and weekends Subjective -No acute [...] 97 MG 1.8 1.8 Imaging None today [facility] 08-09-2023 Note HNO ID: [id number] Author: ANGELA COPELAND MD Service: General Surgery Author Type: Physician Type: Progress Notes Filed: 08/09/2023 09:41 Note Text: General Surgery Progress Note Name: Susi Ortiz Bed: FV-PK3C28/FV-[id number]-99 Date: August 08, 2023 ASSESSMENT AND PLAN [...] staff Patrica Anaya MD General Surgery, Resident [phone] Please contact [facility] pager for any questions [phone] during the daytime hours from 6a to 6p. Contact [phone] for nights and weekends Subjective -No acute [...] incision. Tolerating some fluids. Philly Copeland MD [facility] 08-09-2023 Note HNO ID: [id number] Author: MAYANK VELARDE RN Service: ? Author Type: Registered Nurse Type: Nursing Progress Note Filed: 08/09/2023 06:08 Note Text: 0608: page SROC pt potassium came back 3.5 this morning. [facility] 08-08-2023 Note HNO ID: [id number] Author: ANGELA COPELAND MD Service: General Surgery Author Type: Physician Type: Progress Notes Filed: 08/08/2023 09:33 Note Text: General Surgery Progress Note Name: Susi Ortiz [facility] Date: August 08, 2023 ASSESSMENT AND PLAN [...] No gas yet today. Philly Copeland MD [facility] 08-07-2023 Note HNO ID: [id number] Author: MAICO MCCLAIN MD Service: General Surgery Author Type: Resident Type: Progress Notes Filed: 08/07/2023 09:26 Note Text: General Surgery Progress Note Name: Susi Ortiz Bed: -PK3C28/FV-CN6P-60 Date: August 07, 2023 ASSESSMENT AND PLAN Ssui Ortiz is a 38 year old female [...] this interval not displayed. Imaging None today [facility] 08-06-2023 Note HNO ID: [id number] Author: MAICO MCCLAIN MD Service: General Surgery Author Type: Resident Type: Progress Notes Filed: 08/06/2023 15:58 Note Text: General Surgery Progress Note Name: Susi Ortiz [facility]86 Date: August 06, 2023 ASSESSMENT AND PLAN [...] 2.0 -- -- 1.8 Imaging None today [facility] 08-06-2023 Note HNO ID: [id number] Author: JOE GRANDA MD Service: General Surgery [...] of VTE prophylactic dosing Joe Granda MD [facility] 08-05-2023 Note HNO ID: [id number] Author: JOE GRANDA MD Service: General Surgery Author Type: Physician Type: Progress Notes Filed: 08/05/2023 15:58 Note Text: General Surgery Progress Note Name: Susi Ortiz [facility]CM[facility]Q-02 Date: August 05, 2023 ASSESSMENT AND PLAN [...] Doing well POD 1. Joe Granda MD [facility] 08-05-2023 Note HNO ID: [id number] Author: ALMA CONNORS LSW Service: Care Management Author Type: Geneticist Type: Care Mgt Initial Assessment Filed: 08/05/2023 12:20 Note Text: CARE MANAGEMENT: ASSESSMENT AND DISCHARGE PLAN SERVICE DATE: August 05, 2023 SERVICE TIME: 12:17 PM PCP: Elizabet Simental DO, DO Primary Contact: Extended Emergency Contact Information Primary Emergency Contact: Evita Eckert [facility] Mobile Relation: Grandparent Secondary Emergency Contact: Ritchie Stephens [facility] Mobile Relation: Mother Admission Status: Inpatient Insurance Provider: TERRY BCBS [place] OF [place] Discharge Planning requested by: Per Department Practice Potential Transition Plans No Services Indicated Advance Directives Current Advance Directive: None 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 [facility] 08-04-2023 Note HNO ID: [id number] Author: MARIIA AGUERO APRN.CRIMINAL JUSTICE DEPARTMENT CHAIR Service: ? Author Type: Nurse Office Machine Inspector Type: Anesthesia Procedure Notes Filed: 08/04/2023 14:30 Note Text: ANESTHESIOLOGY PROCEDURE NOTE Gastric Tube General Information Procedure Start Time/Medication Administration: 08/04/2023 1:15 PM Patient location during procedure: OR Indication: gastric decompression Staffing Anesthesiologist: Amanda Alcantar DO CRIMINAL JUSTICE DEPARTMENT CHAIR: Mariia Aguero APRN.CRIMINAL JUSTICE DEPARTMENT CHAIR Performed by: CHEKO Procedure Details Type: Nasogastric tube Cortrak monitor used: No Size: 18 Fr cm Distance Advanced: 55 cm Securement: taped to the nose Placement Confirmation: KUB ordered/pending Successful Placement: yes Post-Procedure Details SIGNATURE: Mariia Aguero APRN.CRNA PATIENT NAME: Susi Naqvi Ortiz DATE: August 04, 2023 TIME: 2:23 PM CSN: [id number] [facility] 08-04-2023 Note HNO ID: [id number] Author: JUDE LOPEZ DO Service: Anesthesiology Author Type: Anesthesiologist Type: Anesthesia Procedure Notes Filed: 08/04/2023 12:19 Note Text: ANESTHESIOLOGY PROCEDURE NOTE Epidural Block General Information Procedure Start Time/Medication Administration: 08/04/2023 7:27 AM Patient location during procedure: pre-op Informed Consent Consent Obtained: Written [place] Protocol A moment to CARE was completed. [...] 3 Needle and Epidural Catheter Needle type: Abacast Needle gauge: 17G Needle length: 6 in [...] August 04, 2023 TIME: 12:10 PM CSN: [id number] [facility] 08-04-2023 Note HNO ID: [id number] Author: MARIIA AGUERO APRN.CRIMINAL JUSTICE DEPARTMENT CHAIR Service: ? Author Type: Nurse Office Machine Inspector Type: Anesthesia Procedure Notes Filed: 08/04/2023 10:01 Note Text: ANESTHESIOLOGY PROCEDURE NOTE Airway General Information Procedure Start Time/Medication Administration: 08/04/2023 8:47 AM Patient location during procedure: OR Patient identity confirmed: arm band and patient Staffing Anesthesiologist: Amanda Alcantar DO CRIMINAL JUSTICE DEPARTMENT CHAIR: Mariia Aguero APRN.CRIMINAL JUSTICE DEPARTMENT CHAIR Performed by: other anesthesia staff Indications and Patient Condition Indications for airway management: anesthesia Preoxygenated: yes anesthesia circuit Patient position: sniffing Method: modified rapid sequence Difficult Mask: No Airway Accessory: oral airway Final Airway Details Final airway type: endotracheal airway Final Endotracheal Airway: ETT Cuffed: yes Successful intubation technique: video laryngoscopy Devices used: Axonify Endotracheal tube insertion site: oral Blade size: #4 ETT size (mm): 7.5 Measured from: lips Measurement (cm): 22 Placement verified by: capnometry Cormack-Lehane Classification: grade I - full view of glottis Number of attempts at approach: 1 Airway not difficult Comments Atraumatic intubation. Dentition and lips remain the same as preop. Critical care CLINICAL STAFF RN performed intubation. SIGNATURE: Mariia Aguero APRN.CRNA PATIENT NAME: Susi Naqvi Ortiz DATE: August 04, 2023 TIME: 9:58 AM CSN: [id number] [facility] 08-04-2023 Note HNO ID: [id number] Author: AMANDA ALCANTAR DO Service: Anesthesiology Author Type: Physician Type: Anesthesia Procedure Notes Filed: 08/04/2023 09:33 Note Text: ANESTHESIOLOGY PROCEDURE NOTE A-Line General Information Procedure Start Time/Medication Administration: 08/04/2023 9:02 AM Patient location during procedure: OR Consent Obtained: Yes Indications: continuous blood pressure monitoring Staffing Anesthesiologist: Amanda Alcantar DO CRIMINAL JUSTICE DEPARTMENT CHAIR: Mariia Aguero APRN.CRIMINAL JUSTICE DEPARTMENT CHAIR Performed by: anesthesiologist Preparation Sterility Preparation: hand [...] Line Secured: Tegaderm and tape SIGNATURE: Amanda Alcnatar DO PATIENT NAME: Susi Naqvi Ortiz DATE: August 04, 2023 TIME: 9:32 AM CSN: [id number] [facility] 08-04-2023 Note HNO ID: [id number] Author: AMANDA ALCANTAR DO Service: Anesthesiology Author Type: Physician Type: Anesthesia Procedure Notes Filed: 08/04/2023 09:32 Note Text: ANESTHESIOLOGY PROCEDURE NOTE PIV General Information Procedure Start Time/Medication Administration: 08/04/2023 9:20 AM Patient Location: OR Staffing Anesthesiologist: Amanda Alcantar DO CRIMINAL JUSTICE DEPARTMENT CHAIR: Mariia Aguero APRN.CRIMINAL JUSTICE DEPARTMENT CHAIR Other anesthesia staff/rotator: Cari Elizondo APRN.CRIMINAL JUSTICE DEPARTMENT CHAIR Performed by: anesthesiologist Preparation Sterility Preparation: hand hygiene performed prior to procedure Site Prep: Betadine and chlorhexidine Procedure Details Indication: need for IV access Needle Size/Type: 14 gauge angiocath Orientation: Left Location: Antecubital Imaging Guidance Used: Yes Image in Chart: Yes SIGNATURE: Amanda Alcantar DO PATIENT NAME: Susi Naqvi Ortiz DATE: August 04, 2023 TIME: 9:30 AM CSN: [id number] [facility] 08-03-2023 Miscellaneous Notes BMI SPECIALTY CARE COORDINATION SURGERY PRE-OP EDUCATION NOTE Phoned patient to reinforce prior pre-op instruction and answer any questions she might have. No answer. Left brief vmm including contact info for this RN and requested call back. documented in this encounter [facility] 07-21-2023 Note HNO ID: [id number] Author: EARL MCGEE RD Service: ? Author [...] visit. Either the patient or their legal claims customer service representative has been informed of the risks [...] Advanced Nutrition OR 5.5 packets/day Light Start Onley Breakfast Essentials mixed with 1% or skim [...] from poultry, beef, fish, seafood, eggs, cheese, Faroese yogurt, cottage cheese, beans, lentils, tofu. Choose meat products that are tender, shredded and/or ground to increase tolerance. Remember to chew food well, eat slow, take small bites CHANGES IN TREATMENT: Patient met goal(s): Yes Diagnosis: has not changed. Allergies: Adhes. Dwwg-Xcdy-Ayzujsqsyeua, Adhesive Tape-Silicones, Augmentin [Amoxicillin-Pot Clavulanate], Keflex [Cephalexin], [...] Significant unintentional weight (more content not included)... [facility] 07-20-2023 Note HNO ID: [id number] Author: JOE GRANDA MD Service: ? Author Type: Physician Type: Progress Notes Filed: 07/20/2023 14:06 Note Text: SURGERY PREOPERATIVE VISIT NOTE Name: Susi Ortiz Medical Record: [id number] Encounter No.: [id number] Susi Ortiz is a 38 year old [...] use: Never ALLERGIES: ALLERGIES Allergen Reactions Adhes. Yfhy-Akip-Gi* Rash Adhesive Tape-Silic* Rash Augmentin [Amoxicil* Diarrhea [...] regarding unsatisfactory weight loss as well as [facility] weight regain. I have also discussed medical [...] well and christian (more content not included)... [facility] 06-11-2023 Note HNO ID: [id number] Author: Heidy Dsouza RN Service: ? Author Type: ? Type: Progress Notes Filed: 06/11/2023 5:30 PM Note Text: Received approval for open LEIDA. Scheduled on 08/04/[address] Granda at . [facility] 04-30-2023 Note HNO ID: [id number] Author: Shaunna Persaud, PhD Service: ? Author Type: Psychologist Type: Progress Notes Filed: 04/30/2023 9:45 AM Note Text: [facility] Progress Note 04/30/2023 Billing code: Robert Patient did not attend, cancel, or reschedule this appointment. Shaunna Persaud, Ph.D. Clinical Health Psychologist [facility] 04-27-2023 Miscellaneous Notes This patient underwent a [...] Joe Granda MD documented in this encounter [facility] 04-13-2023 Note HNO ID: [id number] Author: Rupinder Colbert RD Service: ? Author Type: Registered Dietitian Type: Progress Notes Filed: 04/13/2023 5:48 PM Note Text: Patient presented for virtual visit, however she has not yet had bariatric surgery and does not need 2 week post op visit at this time. Will be rescheduled 2 weeks before surgery once scheduled. Rupinder Colbert RD, LD [facility] 04-13-2023 History of Presen t illness Narrative Patient presented for virtual visit, however she has not yet had bariatric surgery and does not need 2 week post op visit at this time. Will be rescheduled 2 weeks before surgery once scheduled. Rupinder Colbert RD, LD documented in this encounter [facility] 04-11-2023 Note HNO ID: [id number] Author: Note, Interface Service: ? Author Type: ? Type: Progress Notes Filed: 04/11/2023 3:29 AM Note Text: Epic Scheduled Downtime: 04/11/2023 1:00:00 AM to 04/11/2023 1:28:00 AM [facility] 04-01-2023 Note HNO ID: [id number] Author: Mary Hughes MD Service: General Surgery [...] Resident For team paging 6AM-6PM during weekdays: [phone] for [facility] Team For team paging after 6PM or on weekend / holidays: [phone] for General Surgery Subjective: - No acute [...] 1006 APTT 30.3 INR 0.9 Cardiac Enzymes [facility] 03-31-2023 Note HNO ID: [id number] Author: Heber Riddle SRNA Service: ? Author Type: Student Type: Anesthesia Procedure Notes Filed: 03/31/2023 11:20 AM Note Text: ANESTHESIOLOGY PROCEDURE NOTE Airway General Information Procedure Start Time/Medication Administration: 03/31/2023 10:35 AM Patient location during procedure: OR Timeout Performed Pre-procedure: timeout performed Consent Obtained: Yes Patient identity confirmed: arm band and patient Staffing Anesthesiologist: Darrel Conklin MD CRIMINAL JUSTICE DEPARTMENT CHAIR: Sheridan Claire APRN.CRIMINAL JUSTICE DEPARTMENT CHAIR SRNA: Heber Riddle SRNA Performed by: LILIANA [...] March 31, 2023 TIME: 11:18 AM CSN: [id number] [facility] 03-10-2023 Instructions Shruti Alvarado APRN.SEED TRUCKER - 03/10/2023 2:02 PM EDT PATIENT PREOPERATIVE INSTRUCTIONS Joe Granda MD has scheduled you for your procedure at this surgery center: [facility]: [phone] --[id number] [address]. Please check in on the 1st floor [...] Procedures: - YOU MUST HAVE A RESPONSIBLE RAWHIDE BONE ROLLER TAKE YOU HOME. A LEGAL CASHIER OR ADVERTISING SALES ASSOCIATE CANNOT BE MADE A RESPONSIBLE RAWHIDE BONE ROLLER. - We recommend that a responsible person [...] Advance Directive, please fax a copy to [phone] or email to for it to be [...] Shruti Alvarado APRN.KATTY documented in this encounter [facility] 03-10-2023 History and physical note HISTORY [...] medication comments found. ALLERGIES Allergen Reactions Adhes. Drpt-Mwbt-Ge* Rash Adhesive Tape-Silic* Rash Augmentin [Amoxicil* Diarrhea Keflex [Cephalexin] Rash, Itching Penicillins Hives Ultram [Tramadol Hc* Itching COVID VACCINATION STATUS: Fully vaccinated REVIEW OF SYSTEMS: PAIN ASSESSMENT: General: No weight loss, malaise or fevers. Neuro: No history of TIA's, stroke, EMERGENCY DOCTOR tumor, impaired sensorium, hemiplegia, paraplegia or quadraplegia. No neurological symptoms or problems. Positive for Migraines on Inderal Respiratory: Positive for TONEY non compliant with CPAP , Negative for No history of current cough or dyspnea, or pneumonia in the past 6 weeks. No history of respiratory/pulmonary symptoms or problems Cardiovascular: No history of HTN requiring medication, no history of angina, CHF, RI, cardiac surgery or stents. Denies rest pain, gangrene or revascularization/amputation for PVD. No history of cardiovascular symptoms or problems. GI: See HPI : No history of dysuria, frequency or incontinence,, stones or chronic kidney disease, No difficulty urinating, nocturia > 1 time per night or hematuria PANTS PRESSER: Negative for abnormal vaginal bleeding, abnormal vaginal [...] normal intervals, reviewed by myself., reviewed by insulation and flooring assembler. All in [facility] Assessment/Plan TONEY on CPAP Assessment: non compliant with CPAP Gastroesophageal reflux disease Assessment: stable on PPI Bipolar affective disorder ([facility]) Assessment: stable on medication Denies any suicidal ideations Morbid obesity with body mass index of 60.0-69.9 in adult ([facility]) Assessment: Body mass index is 68.66 kg/m . Thrombocytosis ([facility]) Assessment: s/p splenectomy in 2014, Elevated Platelet [...] TIME: 1:33 PM documented in this encounter [facility] 03-05-2023 Instructions Mireille Dao, BRENDON - 03/05/2023 1:53 PM EDT Instructions for Liquid Diet before surgery Start the full liquid diet 3 weeks before surgery - Use only the approved protein shakes: 4.5 bottles/day Slim Fast Advanced Nutrition OR 5.5 packets/day Light Start Onley Breakfast Essentials mixed with 1% or skim [...] from poultry, beef, fish, seafood, eggs, cheese, Faroese yogurt, cottage cheese, beans, lentils, tofu. Choose meat products that are tender, shredded and/or ground to increase tolerance. Remember to chew food well, eat slow, take small bites documented in this encounter [facility] 03-05-2023 Note HNO ID: [id number] Author: Mireille Dao RD Service: ? Author Type: Registered Dietitian Type: Progress Notes Filed: 03/05/2023 1:53 PM Note Text: I have communicated my name and active licensure. The patient's identity and physical location were verified at the time of this visit. Either the patient or their legal claims customer service representative has been informed of the risks [...] Advanced Nutrition OR 5.5 packets/day Light Start Onley Breakfast Essentials mixed with 1% or skim [...] from poultry, beef, fish, seafood, eggs, cheese, Faroese yogurt, cottage cheese, beans, lentils, tofu. Choose meat products that are tender, shredded and/or ground to increase tolerance. Remember to chew food well, eat slow, take small bites CHANGES IN TREATMENT: Patient met goal(s): Partially Diagnosis: has not changed. Allergies: Adhes. Uoeh-Ykse-Hekpbxvvsynd, Adhesive Tape-Silicones, Augmentin [Amoxicillin-Pot Clavulanate], Keflex [Cephalexin], [...] free. Avoid carbonat (more content not included)... [facility] 03-05-2023 History of Presen t illness Narrative I have communicated my name and active licensure. The patient's identity and physical location were verified at the time of this visit. Either the patient or their legal claims customer service representative has been informed of the risks [...] Advanced Nutrition OR 5.5 packets/day Light Start Onley Breakfast Essentials mixed with 1% or skim [...] from poultry, beef, fish, seafood, eggs, cheese, Faroese yogurt, cottage cheese, beans, lentils, tofu. Choose meat products that are tender, shredded and/or ground to increase tolerance. Remember to chew food well, eat slow, take small bites CHANGES IN TREATMENT: Patient met goal(s): Partially Diagnosis: has not changed. Allergies: Adhes. Ngwu-Ujya-Butdjbhcjgfe, Adhesive Tape-Silicones, Augmentin [Amoxicillin-Pot Clavulanate], Keflex [Cephalexin], [...] mg per day Calcium Citrate https://www.bariatricfusion.com/ collections/adek/products/bariat ofx-bkbvaaqgddnf-fjfv-adek-vitam qt-ajef-uiic OR - 2 per day Bariatric Advantage High ADEK Multivitamin Capsules AND 6480-1323 mg per day Calcium Citrate AND 45-60 mg per day Iron https://www.bariatricadvantage.c om/ehzp-qmcz-pizbqkmkkjwi-capsul es OR - 2 per day Celebrate Multi-ADEK with Iron Chewable Tablets AND 4180-4887 mg per day Calcium Citrate https://[employer]Stays.[employer]/pr oducts/fxzjq-tchh-iyak-iron?vari cuh=[id number] OR -1 per day ProCare DS/LEIDA Bariatric Multivitamin with 60 mg Iron AND 4154-7951 mg per day Calcium Citrate https://Creactives/procare-h brbdl-ekxt-yvwer-bariatric-multi ebhgmmr-yvnlbyo-zq-leida/?sku=Vit -FpxeCwvnGX-WJCB-84ji S-LEIDA-30ct Nutrition Monitoring & Evaluation: Follow pre op diet and fluid guidelines Criteria: weight check Need for Follow up: 2 weeks post op Appointment Start Time: 1:00 pm Appointment End Time: 1:21 pm Time Spent on Consult: 21 minutes - Group SIGNATURE: Mireille Dao RD PATIENT NAME: Susi Borjahip DATE: 03/05/2023 TIME: 12:55 PM PAGER: documented in this encounter [facility] 02-26-2023 Note HNO ID: [id number] Author: Pao Hodgson RN Service: ? Author Type: Registered Nurse Type: Progress Notes Filed: 02/26/2023 2:35 PM Note Text: Surgery date rescheduled to 03/31/2023. Pao Hodgson RN [facility] 01-15-2023 Note HNO ID: [id number] Author: Joe Granda MD Service: ? Author Type: Physician Type: Progress Notes Filed: 01/15/2023 11:40 AM Note Text: VIRTUAL VISIT PROGRESS NOTE This is a virtual visit using [employer] video visit. It required patient-provider interaction for the medical decision making as documented below. I have communicated my name and active licensure. The patient's identity and physical location were verified at the time of this visit. Either the patient or their legal claims customer service representative has been informed of the risks and benefits of -- and alternatives to -- treatment through a remote evaluation and consents to proceed with the evaluation remotely. PREOPERATIVE VISIT NOTE Name: Susi Ortiz Medical Record: [id number] Encounter No.: [id number] Susi Ortiz is a 37 year old [...] for this visit. ALLERGIES Allergen Reactions Adhes. Hvwp-Nxru-Of* Rash Adhesive Tape-Silic* Rash Augmentin [Amoxicil* Diarrhea [...] or repair, stric (more content not included)... [facility] 01-05-2023 Note HNO ID: [id number] Author: Pao Hodgson RN Service: ? Author Type: Registered Nurse Type: Progress Notes Filed: 01/30/2023 10:27 AM Note Text: Surgery date rescheduled to 03/17/2023. Pao Hodgson RN [facility] 01-05-2023 Miscellaneous Notes [facility] SPECIALTY CARE COORDINATION SURGERY APPROVAL CALL Received e-mail confirmation of insurance approval for bariatric surgery.Pre-operative call placed to the patient, this RN spoke with patient and agreed upon a surgery date of February 03 2023. Surgical episode request sent to [facility] surgery scheduling. 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 Creatinine level 0.81 Patient instructed to start pre-op 800 calorie total protein liquid diet daily beginning 2 weeks prior to surgery. - Stop all ASA and NSAID products, Mohawk 3 fish oil, herbal products such as [...] Pt instructed to fax FMLA forms to [phone] and allow 7-10 days for completion. - Deandra video assigned. - All questions and concerns addressed and patient verbalized understanding. - Patient case reviewed. All nutrition appointments completed, psychology clearance obtained, surgeon visit and procedure type verified, medical optimization obtained and all testing complete. 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 Yes, patient has Con ABO. Pao Hodgson RN documented in this encounter [facility] 12-15-2022 Instructions Mireille Dao, RD - [...] mg per day Calcium Citrate https://www.bariatricfusion.com/ collections/adek/products/bariat fmr-ydkjpebmvokp-gbii-adek-vitam qm-gwbl-rlfe OR - 2 per day Bariatric Advantage High ADEK Multivitamin Capsules AND 5000-2180 mg per day Calcium Citrate AND 45-60 mg per day Iron https://www.bariatricadvantage.c om/nwaj-bbct-oqscjltexizp-capsul es OR - 2 per day Celebrate Multi-ADEK with Iron Chewable Tablets AND 5336-4484 mg per day Calcium Citrate https://celebratevitamins.com/pr oducts/lvgmi-huyf-ucgo-iron?vari khm=[id number] OR -1 per day ProCare DS/LEIDA Bariatric Multivitamin with 60 mg Iron AND 9922-4930 mg per day Calcium Citrate https://Creactives/procare-h dltxx-fezq-yabgr-bariatric-multi zkeauij-fymoiyb-rz-leida/?sku=Vit -UeybEaqaXE-ALXD-79kk S-LEIDA-30ct documented in this encounter [facility] 12-15-2022 Note HNO ID: [id number] Author: Mireille Dao RD Service: ? Author Type: Registered Dietitian Type: Progress Notes Filed: 12/15/2022 3:32 PM Note Text: [facility] Nutrition Therapy: Virtual Consult - Re-assessment I have communicated my name and active licensure. The patient's identity and physical location were verified at the time of this visit. Either the patient or their legal claims customer service representative has been informed of the risks [...] per day Calcium Citrate https://www.bariatricfusion.com/ collections/adek/products/bariat libby-multivi npbgy-bvqc-cdwo-vwiqztk-eshf-cjs n OR - 2 per day Bariatric Advantage High ADEK Multivitamin Capsules AND 3855-4711 mg per day Calcium Citrate AND 45-60 mg per day Iron https://www.bariatricadvantage.c om/zcpp-uarl-uhcxcckzdaun-capsul es OR - 2 per day Celebrate Multi-ADEK with Iron Chewable Tablets AND 0567-4943 mg per day Calcium Citrate https://Yoopiess.[employer]/pr oducts/uvycz-ehcg-udju-iron?vari rue=4870037 1846301 OR -1 per day ProCare DS/LEIDA Bariatric Multivitamin with 60 mg Iron AND 2881-7736 mg per day Calcium Citrate https://Creactives/procare-h hkykf-yhse-tihan-bariatric-multi vitamin-cap tffv-no-hyyr/?sku=Vit-BariCapsDS -LEIDA-30ct S-LEIDA-30ct Nutrition Monitoring AND Evaluation: Weight [...] ADEK Complete Capsule (3x per day) AND 8001-8564 mg calcium citrate https://www.bariatricfusion.com/ collections/adek/products/bariat libby-multivi stwkp-tyyg-teys-qyqhanz-hoif-beh n OR - Bariatric Advantage High ADEK Chewable Multivitamin (2x per day) AND 2370-9279 mg calcium citrate https://www.bariatricadvantage.c om/vsht-rsha-mydmwyrrsmup-capsul es OR -Celebrate multi-ADEK chewable (3x per day) AND 4027-5013 mg calcium citrate AND 1 chewable Iron 45-60 mg https://celebratevitamins.com/pr oducts/multi-adek?qkibpuc=646300 2003433 OR -ProCare DS/LEIDA Bariatric multivitamin with 60 mg Iron (1x per day) AND 1524-1931 mg calcium citrate daily https://procaren (more content not included)... [facility] 12-15-2022 History of Presen t illness Narrative [facility] Nutrition Therapy: Virtual Consult - Re-assessment I have communicated my name and active licensure. The patient's identity and physical location were verified at the time of this visit. Either the patient or their legal claims customer service representative has been informed of the risks [...] mg per day Calcium Citrate https://www.bariatricfusion.com/ collections/adek/products/bariat rjc-ptplrtxdixdv-yprs-adek-vitam zh-nhkb-yeez OR - 2 per day Bariatric Advantage High ADEK Multivitamin Capsules AND 2674-5244 mg per day Calcium Citrate AND 45-60 mg per day Iron https://www.bariatricadvantage.c om/fdzq-kwua-czlumhravgbg-capsul es OR - 2 per day Celebrate Multi-ADEK with Iron Chewable Tablets AND 5969-5109 mg per day Calcium Citrate https://iPawn.[employer]/pr oducts/craby-hkvb-nfms-iron?vari jrb=[id number] OR -1 per day ProCare DS/LEIDA Bariatric Multivitamin with 60 mg Iron AND 5824-8018 mg per day Calcium Citrate https://Creactives/procare-h hokaz-ouij-yuesb-bariatric-multi wgyzlun-smeimue-gd-leida/?sku=Vit -OtzfNvalMJ-ZFEA-42lk S-LEIDA-30ct Nutrition Monitoring & Evaluation: Weight loss [...] ADEK Complete Capsule (3x per day) AND 8280-8511 mg calcium citrate https://www.bariatricfusion.com/ collections/adek/products/bariat juq-jcryxtewvuhe-vxqq-adek-vitam hg-rytm-nzsd OR - Bariatric Advantage High ADEK Chewable Multivitamin (2x per day) AND 4963-7562 mg calcium citrate https://www.bariatricadvantage.c om/uxlv-qeof-ykugomgmnkrb-capsul es OR -Celebrate multi-ADEK chewable (3x per day) AND 5662-1821 mg calcium citrate AND 1 chewable Iron 45-60 mg https://celebratevitamins.com/pr oducts/multi-adek?jyiidmh=103659 6493561 OR -ProCare DS/LEIDA Bariatric multivitamin with 60 mg Iron (1x per day) AND 6644-7029 mg calcium citrate daily https://Creactives/procare-h hlxod-izgc-fdgkc-bariatric-multi aaitjuz-cyisfje-ge-leida/?sku=Vit -SuzwMyxtUH-VURH-26jj 2. Protein goal: 77 grams protein/day. Protein [...] Advanced Nutrition OR 5.5 packets/day Light Start Onley Breakfast Essentials mixed with 1% or skim [...] 3:08 PM PAGER: documented in this encounter [facility] 12-13-2022 Evaluation note Encounter Date Diagnosis [...] that time. Patient verbalized understanding treatment plan. My [employer] Other 06-07-2023 History of Present illness Narrative* [...] selecting actual surgery date. Heidy Dsouza RN Manager Market for Cony Soler MD Covering for Joe Granda MD [facility] NoteEXAMINATION: XR CHEST 2 V HISTORY: [...] by: DARREL NICHOLS Date: 2022-08-12 15:04[facility]12-07-2022 Instructions* Patient Instructions* Amina Nieto MD - 06/04/2022 6:53 PM EST INSTRUCTIONS: 1) Please contact me (Dr. Nieto) if you have not heard about your test results within a few days after you had them done. Thank you: Contact information: [facility] [place] [facility]/Attention: Dr. Nieto [address] [place] [address] 2) Please check with your insurance company regarding cost/coverage of any tests ordered prior to having them completed. Edinson Ortiz , Thank you for completing your visit today and we welcome you to the surgical program. We are sure that you will still have some additional questions and encourage you to reach out to your care provider via [employer] OR your Patient Navigator. Patient Navigators are assigned alphabetically by patient last name. The contact information for each Navigator is listed below. Last names A-E= Kody Last names F-L = Joanna- Last names M-R= Alma- Last names S-Z= Jesusita- [email or web address] Additionally, you may find many [...] free to ask for a hard copy. [email or web address] Once you complete all of the requirements (testing, consultations, diet, etc) from each provider, please call [phone] and select option #5 to initiate insurance approval. Please note scheduling information It is important to keep track of your scheduled appointments to ensure successful completion of oursurgical program. Any missed appointments can further delay your pre-surgical work-up. [facility] does offer an opt-in option for getting text message appointment reminders. Please follow the link below if you would like to opt into this service. [email or web address] As part of your surgical work up, [...] these tests. You may call your local [facility] to get an appointment. - Lab work- No appointment is needed for this, you may complete at any [facility].These are usually fasting labs, please be sure to fast (only water permitted) for 10-12 hours priorto the test. -Sleep Study- Please call [phone] or [phone] to get this appointment set up. -Sleep Medicine Consult- (Only needed if sleep study confirms sleep apnea) Please call [phone] to schedule an appointment. Any testing that is completed outside of [facility] will need faxed to [phone]. 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) -tobacco use: non-smoker -ETOH: doesn't drink ALL: [employer] LABS: IMAGING: PROC: CARDIAC: MEDS: See [facility] PMH: -bipolar/depression/anxiety-on Abilify, Buspar, on Lamictal, [...] cardiac, valvular or vascular issues *no h/o RI, CHF, CAD, no cp/palpitations Respiratory: Denies any [...] -she had labs done at her local facility-[facility]; check remaining presurgical labs, CXR, EKG (had recent CT abd); will try to get the labs from [place]; Will mail her orders so she can get them done locally and try to obtain recent labs from [facility] 2)Sleep disordered breathing: external sleep study scanned in [facility]-+TONEY -check sleep study and refer to Sleep medicine-she will try to have these done locally. Amina Nieto MD I spent a total of 45 minutes on the date of the service which included preparing to see the patient, nhvu-mn-advk patient care, completing clinical documentation, obtaining and/or reviewing separately obtained history, counseling and educating the patient/family/caregiver, ordering medications, keli ts, or procedures, and care coordination (not separately reported). 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 Pao Hodgson RN * Telephone Encounter - Jessica Rodriguez - 05/01/2022 1:55 PM EDT Pt has questions regarding upcoming surgery PH: [phone] documented in this encounterM[facility]11-04-2022 Miscellaneous Notes* Telephone Encounter - Pao [...] right procedure forher needs. BMI navigator notified. aPo Hodgson RN * Telephone Encounter - Joe [...] switch. Joe Granda MD documented in this encounterM[facility]10-21-2022 Miscellaneous Notes* Telephone Encounter - Pao Hodgson RN - 04/18/2022 1:34 PM EDT [facility] SPECIALTY CARE COORDINATION SURGERY SCHEDULING CALL Received e-mail confirmation of insurance approval for bariatric surgery.Pre- operative call placed to the patient, this RN spoke with patient and agreed upon a surgery date of June 10 2022. Surgical episode request sent to [facility] surgery scheduling. Patient understands that the surgery type is partial gastrectomy with gastrojejunostomy . Creatinine level pending results Patient instructed to start pre-op 800 calorie total protein liquid diet daily beginning 2 weeks prior to surgery provided creatinine is in range. - Stop all ASA and NSAID products, Mohawk 3 fish oil, herbal products such as [...] Pt instructed to fax FMLA forms to [phone] and allow 7-10 days for completion. Deandra [...] ordered Pao Hodgson RN documented in this encounterMckitrick Hospital10-19-2022 History of Present illness Narrative* Joe [...] which included preparing to see the patient, akym-hi-mhfy patient care, and completing clinical documentation, test ordering, care coordination. Joe Granda MD documented in this encounterMckitrick Hospital10-19-2022 Evaluation note* Encounter Date Diagnosis Assessment [...] Mar, Right foot pain (ICD-10 - M79.671) [employer] [facility] Other 10-14-2022 NotePROCEDURE: XR GI UPPER W [...] by: ESTELLA WHITEHEAD Date: 2022-04-11 10:21[facility]10-14-2022 NotePROCEDURE: XR GI UPPER W KUB [...] by: ESTELLA WHITEHEAD Date: 2022-04-11 10:21[facility]09-29-2022 Evaluation note* Encounter Date Diagnosis Assessment Notes Treatment Notes Treatment Clinical Notes Feb, Gastroesophageal ref lux disease, esophagitis presence not specified (ICD-10 - K21.9) [employer] [facility] Other 09-12-2022 History of Present illness Narrative* Joe Granda MD - 03/10/2022 3:37 PM EDT VIRTUAL VISIT PROGRESS NOTE This is a virtual visit using [employer] video visit. It required patient-provider interaction for [...] which included preparing to see the patient, kshd-pm-grgh patient care, completing clinical documentation, obtaining and/or reviewing separately obtained history, and care coordination (not separately reported) Joe Granda MD documented in this encounterMckitrick Hospital08-17-2022 NoteHNO ID: [id number] Author: EUSEBIA Solo Service: Radiology Author Type: [...] BY: EUSEBIA SOLO February 12, 2022 2:58 [id number] History of Present illness Narrative* EUSEBIA Solo [...] 12, 2022 2:58 PM documented in this encounterMckitrick Hospital08-17-2022 Nurse Note* Elizabeth Stephens RN - [...] 2022 TIME: 2:30 PM documented in this encounterMckitrick Hospital07-25-2022 History of Present illness Narrative* Joe Granda MD - 01/20/2022 2:37 PM EDT VIRTUAL VISIT PROGRESS NOTE This is a virtual visit using [employer] video visit. It required patient-provider interaction for [...] for this visit. ALLERGIES Allergen Reactions Adhes. Isqn-Jcek-Tk* Rash Adhesive Tape-Silic* Rash Augmentin [Amoxicil* Diarrhea [...] which included preparing to see the patient, cvdi-sk-dvdz patient care, completing clinical documentation, obtaining and/or reviewing separately obtained history, performing a medically appropriate examination, counseling and educating the pat ient/family/caregiver, ordering medications, tests, or procedures, communicating with other HCPs (not separately reported) and care coordination (not separately reported) Joe Granda MD documented in this encounterMckitrick Hospital07-22-2022 History of Present illness Narrative* Alex [...] AM, 2 in the PM) www.bariatricfusion.com - Housing.comare Health: 1 Bariatric Multivitamin and Calcium Citrate (total of 1200- 1500 mg/day) * take calcium citrate separately from Multivitamin with iron at least 2 hours apart and 4 hours apart from additional calcium www.Exclusive NetworksarenoBaby World Language.[employer] - Bariatric Choice: 4 Complete Multivitamins (chewables) per day Www.bariatricchoice.com - Bariatric Advantage: 2 Multivitamins and 3 Calcium Citrate Chewables per day * take calcium citrate separately from Multivitamin with iron at least 2 hours apart and 4 hours apart from additional calcium Www.bariatricadvantage.[employer] 2. Do not skip meals. 3. Use [...] Slim Fast Advanced Nutrition OR Light Start Onley Breakfast Essentials mixed with 1% or skim [...] intake at meals and snacks Please call [phone], option 5. Leave a message for the navigation team when you are finishedwith all clearances (nutrition, psychology, medical, surgeon) 1.Starting ~3 weeks after surgery take: daily multivitamin Vit D3 3,000 international unit(s) Vit B12 500 mcg Vit B1 20-100 mg Iron 45 mg Calcium CITRATE 0164-8193 mg/day OR It is okay to use combination vitamin/minerals to reduce pill volume. (Examples Procare Health Bariatric Multivitamin- 45 (1) chewable/day AND 1497-4071 mg calcium citrate OR Bariatric Fusion chewable complete bariatric vitamin (2) chews, twice daily. IF DS: - Bariatric Fusion ADEK Complete Capsule (3x per day) AND 2582-0733 mg calcium citrate OR - Bariatric Advantage High ADEK Chewable Multivitamin (2x per day) AND 9568-9124 mg calcium citrate OR -Celebrate multi-ADEK chewable (3x per day) AND 8584-1179 mg calcium citrate AND 1 chewable Iron [...] Advanced Nutrition OR 5.5 packets Light Start Onley Breakfast Essentials mixed with 1% or skim [...] by: Alex Monsivais RD documented in this encounterMckitrick Hospital07-22-2022 Instructions* Patient Instructions* Alex Monsivais RD - 01/17/2022 9:12 AM EDT Please call [phone], option 5. Leave a message for the navigation team when you are finishedwith all clearances (nutrition, psychology, medical, surgeon) 1.Starting ~3 weeks after surgery take: daily multivitamin Vit D3 3,000 international unit(s) Vit B12 500 mcg Vit B1 20-100 mg Iron 45 mg Calcium CITRATE 7700-7543 mg/day OR It is okay to use combination vitamin/minerals to reduce pill volume. (Examples [employer] Bariatric Multivitamin- 45 (1) chewable/day AND 7584-6982 mg calcium citrate OR Bariatric Fusion chewable complete bariatric vitamin (2) chews, twice daily. IF DS: - Bariatric Fusion ADEK Complete Capsule (3x per day) AND 6931-3251 mg calcium citrate OR - Bariatric Advantage High ADEK Chewable Multivitamin (2x per day) AND 1536-5254 mg calcium citrate OR -Celebrate multi-ADEK chewable (3x per day) AND 9875-0002 mg calcium citrate AND 1 chewable Iron [...] Advanced Nutrition OR 5.5 packets Light Start Onley Breakfast Essentials mixed with 1% or skim [...] up: 2 weeks pre-op documented in this encounterMckitrick Hospital06-22-2022 History and physical note * Joe [...] PM PRIMARY CARE PHYSICIAN: Geneva Estrada, KATTY, SEED TRUCKER This is a virtual visit using alternative [...] Negative for: dysuria, frequent urination and hematuria. PANTS PRESSER: +amenorrhea with IUD Endocrine: Negative for: diabetes [...] medication comments found. ALLERGIES Allergen Reactions Adhes. Bagl-Lpfo-Hv* Rash Adhesive Tape-Silic* Rash Augmentin [Amoxicil* Diarrhea [...] or any previous visit (from the past 42006 hour(s)). Assessment TONEY on CPAP Assessment: not currently using CPAP Thrombocytosis ([facility]) Assessment: s/p splenectomy in 2014, last labs available in [facility]where from 01/2021 showing platelets at 488, plan to discuss with Dr. Granda for review. Bipolar affective disorder (HCC) Assessment: stable on current rx per patient Gastroesophageal reflux disease Assessment: on PPI and sucralfate Morbid obesity with body mass index of 60.0-69.9 in adult ([facility]) Assessment: Body mass index is 66.09 kg/m . Dugan Activity Status Index: METS: Climb a flight of stairs or walk up a hill (5.50 METs) DASI Score: 5.5 Patient denies any chest pain or undue shortness of breath with the above physical activity. Clinical Frailty Scale: 3. Well, with treated comorbid disease [id number] Score: Age: <65 Sex: female [id number] Score: 1 ARISCAT Score: Age: <=50 ARISCAT [...] 1:10 PM PAGER/CONTACT #: documented in this encounterMckitrick Hospital06-09-2022 History of Present illness Narrative* Akosua Peraza RD - 12/05/2021 11:45 AM EDT No show for nutrition appointment on 12/05/21. Signed by: Akosua Peraza RD documented in this encounterMckitrick Hospital05-18-2022 Evaluation note* Encounter Date Diagnosis Assessment [...] sprain elsa e care material was printed [facility] Other 05-11-2022 History of Present illness Narrative* Joe Granda MD - 11/06/2021 9:40 AM EDT Assessment NEW BARIATRIC PATIENT PATIENT NAME: Susi Ortiz REASON FOR CONSULT: Morbid Obesity REQUESTING PHYSICIAN: Self DATE of SERVICE: 11/06/2021 TIME of SERVICE: 9:40 AM PCP: Geneva Estrada, KATTY, SEED TRUCKER CC: Morbid Obesity HPI: Ms. Ortiz is [...] use: Never ALLERGIES: ALLERGIES Allergen Reactions Adhes. Srkn-Mlhy-Mb* Rash Adhesive Tape-Silic* Rash Augmentin [Amoxicil* Diarrhea [...] which included preparing to see the patient, czgp-wc-nqwx patient care, completing clinical documentation, obtaining and/or reviewing separately obtained history, ordering medications, tests, or procedures and care coordination (not separately reported). Joe Granda MD documented in this encounterMckitrick Hospital05-09-2022 Instructions* Patient Instructions* Alex Monsivais, RD - 11/04/2021 12:44 PM EDT 1. Research the post-op vitamin options (can change depending on what procedure is done) Some examples of vitamins/mineral companies: - Bariatric Fusion: 4 Complete Chewable Multivitamins per day (2 in the AM, 2 in the PM) www.bariatricfusion.[employer] - Procare Health: 1 Bariatric Multivitamin and Calcium Citrate (total of 1200- 1500 mg/day) * take calcium citrate separately from Multivitamin with iron at least 2 hours apart and 4 hours apart from additional calcium www.[employer] - Bariatric Choice: 4 Complete Multivitamins (chewables) per day Www.bariatricchoice.[employer] - Bariatric Advantage: 2 Multivitamins and 3 Calcium Citrate Chewables per day * take calcium citrate separately from Multivitamin with iron at least 2 hours apart and 4 hours apart from additional calcium Www.bariatricadOptimal Radiologyage.[employer] 2. Do not skip meals. 3. Use [...] Slim Fast Advanced Nutrition OR Light Start Onley Breakfast Essentials mixed with 1% or skim milk OR Atkins Protein Shakes (15 gm protein version) OR Glucose Controlled Boost Pre-op goal weight: 380 pounds - per Dr. Granda Protein needs: 77 gm per day Nutrition Monitoring & Evaluation: 1-2 # weight loss per week prior to surgery Criteria: Weight check Need for Follow up: 1 month, [phone] documented in this encounterMckitrick Hospital05-09-2022 History of Present illness Narrative* Alex Monsivais, [...] Your Guide to Surgery by next session [email or web address] n 2. Do not skip meals. 3. [...] and 4 hours apart from additional calcium www.[employer] - Bariatric Choice: 4 Complete Multivitamins (chewables) per day Www.bariatricchoice.[employer] - Bariatric Advantage: 2 Multivitamins and 3 Calcium Citrate Chewables per day * take calcium citrate separately from Multivitamin with iron at least 2 hours apart and 4 hours apart from additional calcium. Www.bariatricadvantage.[employer] For reflux: 1. Try to eat something every 2-3 hours and do not skip meals. Large meals may increase stomach pressure and make your reflux worse. 2. Avoid possible trigger foods as follows: Caffeine (regular coffee, regular tea) Carbonated beverages Mints (peppermint, spearmint) Fried, greasy foods Garlic and onions [place] fruits, juices Alcohol Tomato products Spicy foods [...] and 4 hours apart from additional calcium www.[employer] - Bariatric Choice: 4 Complete Multivitamins (chewables) [...] Slim Fast Advanced Nutrition OR Light Start Onley Breakfast Essentials mixed with 1% or skim milk OR Atkins Protein Shakes (15 gm protein version) OR Glucose Controlled Boost Pre-op goal weight: 380 pounds - per Dr. Granda Protein needs: 77 gm per day Nutrition Monitoring & Evaluation: 1-2 # weight loss per week prior to surgery Criteria: Weight check Need for Follow up: 1 month, [phone] Group Appointment Start Time: 11:45 AM Group Appointment End Time: 12:29 PM Time Spent on Consult: 44 minutes - Group Signed by: Alex Monsivais RD documented in this encounterMckitrick Hospital05-02-2022 Evaluation note* Encounter Date Diagnosis Assessment Notes Treatment Notes Treatment Clinical Notes October, Gastroesophageal ref lux disease, esophagitis presence not specified (ICD-10 - K21.9) [facility] [employer] Other 04-15-2022 Evaluation note* Encounter Date Diagnosis Assessment Notes Treatment Notes Treatment Clinical Notes Sep, Other d/t progessi vely worsening shortness of breath and hypoxia, patient was recommended to go to ER for higher acuity care [facility] [employer] Other 04-07-2022 Evaluation note* Encounter Date Diagnosis [...] ramon lt home care material was printed [employer] [facility] Other 04-04-2022 History of Present illness Narrative* 09/30/2021 * 9:15AM * SUSI ORTIZ , 36 year is contacted for an (audio-visual, or audio only) Telehealth visit. * Today's visit was provided through telemedicine conferencing: Using [employer] platform. * Consent: * The concept of [...] She went in for evaluation with her BULLDOGGER in early January 2021, and was subsequently found to have a complex ovarian cyst. She was taken for surgery at [facility] later that month, and reports that [...] in 2019, which was also performed at [facility]. 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 We are sure that you will still have some additional questions and encourage you to reach out to your care provider via [employer] OR your Patient Navigator. Patient Navigators are [...] free to ask for a hard copy. [email or web address] Once you complete all of the requirements (testing, consultations, diet, etc) from each provider, please call [phone] and select option #5 to initiate insurance approval. Please note scheduling information It is important to keep track of your scheduled appointments to ensure successful completion of oursurgical program. Any missed appointments can further delay your pre-surgical work-up. [facility] does offer an opt-in option for getting text message appointment reminders. Please follow the link below if you would like to opt into this service. [email or web address] As part of your surgical work up, [...] follow up visit or rescheduling, Please call [phone] OR [phone] Any testing that is completed outside of [facility] will need faxed to [phone]. We look forward to working with you on this journey, Jayshree Huffman APRN.CNP documented in this encounterMckitrick Hospital03-28-2022 History of Present illness Narrative* Jayshree [...] to severe GERD. Sleeve in 2017 at [facility] in [place]. 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 ALLERGIES Allergen Reactions Adhes. Fsom-Bihe-Cu* Rash Adhesive Tape-Silic* Rash Augmentin [Amoxicil* Diarrhea [...] which included preparing to see the patient, ylys-fz-jduc patient care, completing clinical documentation, obtaining and/or reviewing separately obtained history, counseling and educating the patient/family/caregiver, ordering medications, keli ts, or procedures and communicating with other HCPs (not separately reported). Medical Decision Making Jayshree Huffman APRN.CNP documented in this encounterMckitrick Hospital11-19-2021 History and physical note * Humza [...] a sleeve gastrectomy done in 2017 at [facility]. Her preop weight was 380 lbs. [...] Minimally Invasive General Surgery documented in this encounterAdena [facility] CenterChief complaint Narrative - Reported* An interactive [...] Other intestinal malabsorption [facility] Diagnosis Gastroesophageal reflux disease, unspecified whether esophagitis present- Primary Class 3 severe obesity with serious comorbidity and body mass index (BMI) of 60.0 to 69.9 in adult, unspecified obesity type (HCC) TONEY on CPAP Obstructive sleep apnea (adult) (pediatric) S/P laparoscopic sleeve gastrectomy Bariatric surgery status Postoperative malabsorption Other and unspecified postsurgical nonabsorption documented [facility] encounter [facility]* Diagnosis Dysphagia, unspecified type- Primary Gastroesophageal reflux disease, unspecified whether esophagitis present History of sleeve gastrectomy [facility]* Diagnosis History of sleeve gastrectomy- Primary BMI 70 and over, adult (HCC) Body Mass Index 70 and over, adult Dietary counseling and surveillance Dietary surveillance and counseling documented in this encounter [facility] note* Diagnosis History of sleeve gastrectomy- Primary Gastric fistula Fistula of stomach or duodenum documented in this encounter [facility] note* Diagnosis NO SHOW- Primary documented in this encounter [facility] note* Diagnosis TONEY on CPAP Obstructive sleep apnea (adult) (pediatric) Gastroesophageal reflux disease, unspecified whether esophagitis present S/P laparoscopic sleeve gastrectomy Bariatric surgery status documented in this encounter [facility]No InformationN[facility] [employer] Other Evaluation note* Diagnosis Gastroesophageal reflux disease, unspecified whether esophagitis present- Primary BMI 70 and over, adult (HCC) Body Mass Index 70 and over, adult History of sleeve gastrectomy Dietary counseling and surveillance Dietary surveillance and counseling documented in this encounter [facility] note* Diagnosis Epigastric pain- Primary Abdominal pain, epigastric Gastroesophageal reflux disease without esophagitis Esophageal reflux History of sleeve gastrectomy documented in this encounter [facility] note* Diagnosis History of sleeve gastrectomy Gastric fistula Fistula of stomach or duodenum documented in this encounter [facility] note* Diagnosis NO SHOW- Primary documented in this encounter [facility] note* Diagnosis History of sleeve gastrectomy- Primary documented in this encounter [facility] noteNo assessment information [facility] Work Phone: Evaluation note* Diagnosis Gastroesophageal reflux disease, unspecified whether esophagitis present- Primary BMI 70 and over, adult ([facility]) Body Mass Index 70 and over, adult documented in this encounter [facility] note* Diagnosis Morbid obesity with body mass index of 60.0-69.9 in adult ([facility])- Primary Morbid obesity Gastroesophageal reflux disease, unspecified whether esophagitis present BMI 70 and over, adult ([facility]) Body Mass Index 70 and over, adult Gastroesophageal reflux disease, unspecified whether esophagitis present documented in this encounter [facility] note* Diagnosis Morbid obesity with body mass index of 60.0-69.9 in adult ([facility])- Primary Morbid obesity documented in this encounter [facility] note* Diagnosis Weight disorder- Primary Other symptoms concerning nutrition, metabolism, and development BMI 70 and over, adult ([facility]) Body Mass Index 70 and over, adult Preop testing Preoperative examination, unspecified Abnormal weight gain Snoring Other dyspnea and respiratory abnormality Sleep-disordered breathing Other sleep disturbances Fatigue, unspecified type S/P bariatric surgery Bariatric surgery status documented in this encounter [facility] note* Diagnosis Morbid obesity with BMI of 70 and over, adult ([facility])- Primary Morbid obesity documented in this encounter [facility] note* Diagnosis S/P gastric sleeve procedure- Primary Weight gain following gastric bypass surgery BMI 60.0-69.9, adult ([facility]) Body Mass Index 60.0-69.9, adult Dietary counseling and surveillance Dietary surveillance and counseling documented in this encounter [facility] note* Diagnosis Weight gain following gastric bypass surgery- Primary Abnormal weight gain Preop testing Preoperative examination, unspecified Snoring Other dyspnea and respiratory abnormality Sleep-disordered breathing Other sleep disturbances Fatigue, unspecified type S/P bariatric surgery Bariatric surgery status S/P gastric sleeve procedure Dietary counseling and surveillance Dietary surveillance and counseling BMI 60.0-69.9, adult ([facility]) Body Mass Index 60.0-69.9, adult documented in this encounter [facility] note* Diagnosis Pre-op evaluation- Primary Preoperative examination, unspecified Morbid obesity with body mass index of 60.0-69.9 in adult ([facility]) Morbid obesity Gastroesophageal reflux disease, unspecified whether esophagitis present TONEY on CPAP Obstructive sleep apnea (adult) (pediatric) Bipolar affective disorder, remission status unspecified ([facility]) Thrombocytosis Essential thrombocythemia Migraine without status migrainosus, not intractable, unspecified migraine type [facility] Diagnosis Patient left without being seen- Primary Surgical or other procedure not carried out because of patient's decision [facility] Diagnosis S/P gastrointestinal surgery, follow-up exam- Primary Follow-up examination, following other surgery Status post biliopancreatic diversion with duodenal switch Post-operative nausea and vomiting Nausea with vomiting documented in this encounter [facility] note* Diagnosis Impaired intestinal absorption- Primary Unspecified intestinal malabsorption S/P biliopancreatic diversion with duodenal switch Class 3 severe obesity with body mass index (BMI) of 60.0 to 69.9 in adult, unspecified obesity type, unspecified whether serious comorbidity present (HCC) Dietary counseling and surveillance Dietary surveillance and counseling documented in this encounter [facility] note* Diagnosis S/P bariatric surgery- Primary Bariatric surgery status Body mass index (BMI) 60.0-69.9, adult ([facility]) Dietary counseling and surveillance Dietary surveillance and counseling documented in this encounter [facility] note* Diagnosis S/P gastrointestinal surgery, follow-up exam- Primary Follow-up examination, following other surgery S/P biliopancreatic diversion with duodenal switch Open abdominal incision with drainage, subsequent encounter Impaired intestinal absorption Unspecified intestinal malabsorption Class 3 severe obesity with body mass index (BMI) of 60.0 to 69.9 in adult, unspecified obesity type, unspecified whether serious comorbidity present (HCC) [facility] Diagnosis S/P bariatric surgery- Primary Bariatric surgery status Impaired intestinal absorption Unspecified intestinal malabsorption Body mass index (BMI) 60.0-69.9, adult ([facility]) Dietary counseling and surveillance Dietary surveillance and counseling documented in this encounter [facility] note* Diagnosis Encounter for surgical aftercare [...] Bariatric surgery status documented in this encounter [facility] note* Diagnosis BMI 60.0-69.9, adult (HCC)- Primary Body Mass Index 60.0-69.9, adult S/P bariatric surgery Bariatric surgery status documented in this encounter [facility] general Narrative - Reported* Type Description Date [...] X'S 2 Hospitalization History SEE ABOVE SURGERY My Pick Box Other [facility] general Narrative - Reported* Type Description Date [...] X'S 2 Hospitalization History SEE ABOVE SURGERY My Pick Box Other Reason for referral (narrative)* Diagnostic Procedure [...] GI TRC SINGLE CONTRAST STUDY Jayshree Huffman APRN.SEED TRUCKER [address] [place] [address] Xr Imaging Referral ID Status Reason Start Date Expiration Date Visits Requested Visits Authorized [id number] Pending Review Auto-Generat ed Referral 09/23/2021 10/23/2022 1 1 * Outpatient Procedure (Routine) - Pending Review Specialty Diagnoses / Procedures Referred By Tiarra somers Referred To Contact [facility] Diagnoses TONEY on CPAP Gastroesophageal reflux disease, unspecified whether esophagitis present Class 3 severe obesity with serious comorbidity and body mass index (BMI) of 60.0 to 69.9 in adult, unspecified obesity type (HCC) Postoperative malabsorption Procedures ECG COMPLETE ECG ROUTINE ECG W/LEAST 12 LDS W/I&R Jayshree Huffman APRN.CNP [id number] [place] [address] Referral ID Status Reason Start Date Expiration Date Visits Requested Visits Authorized [id number] Pending Review Auto-Generat ed Referral 09/23/2021 09/23/2022 1 1 [facility] for referral (narrative)* Outpatient Procedure (Routine) - Closed Specialty Diagnoses / Procedures Referred By Tiarra somers Referred To Contact [facility] Diagnoses TONEY on CPAP Gastroesophageal reflux disease, unspecified whether esophagitis present S/P laparoscopic sleeve gastrectomy Procedures EGD DIAGNOSTIC ESOPHAGOGASTRODUODENOSCO PY TRANSORAL DIAGNOSTIC Jayshree Huffman APRN.CNP [address] [place] [address] [place] [address] Referral ID Status Reason Start Date Expiration Date V isits Requested Visits Authorized [id number] Closed Auto-Generate d Referral 09/24/2021 09/24/2022 1 1 [facility] for referral (narrative)* Outpatient Procedure (Routine) - Pending Review Specialty Diagnoses / Procedures Referred By Tiarra somers Referred To Contact [facility] Diagnoses Abnormal weight gain Preop testing Snoring Sleep-disordered breathing Fatigue, unspecified type S/P bariatric surgery BMI 70 and over, adult ([facility]) Procedures ECG COMPLETE ECG ROUTINE ECG W/LEAST 12 LDS W/I&R Amina Nieto MD [address] [place] [address] [facility] [address] [address] Referral ID Status Reason Start Date Expiration Date Visits Requested Visits Authorized [id number] Pending Review Auto-Generat ed Referral 06/04/2022 05/31/2023 1 1 * Consult, Test, Treat (Routine) - Authorized Specialty Diagnoses / Procedures Referred By Tiarra somers Referred To Contact Diagnoses Abnormal weight gain Preop testing Snoring Sleep-disordered breathing Fatigue, unspecified type S/P bariatric surgery BMI 70 and over, adult ([facility]) Procedures CONSULT TO SLEEP MEDICINE - ADULT OFFICE/OUTPATIENT [facility] 60-74 MINUTES Amina Nieto MD [address] [id number] Referral ID Status Reason Start Date Expiration Date Visits Requested Visits Authorized [id number] Authorized PCP Requested Referral 06/04/2022 05/31/2023 1 1 [facility] for referral (narrative)* Outpatient Procedure (Routine) [...] ECG W/LEAST 12 LDS W/I&R Shruti Alvarado, MARKET GARDENER.SEED TRUCKER [address] [place] [address] [facility] [address] [address] Referral ID Status Reason Start Date Expiration Date Visits Requested Visits Authorized [id number] Pending Review Auto-Generat ed Referral 03/10/2023 03/09/2024 1 1 [facility] Outpatient Procedure (Routine) - Closed Specialty Diagnoses / Procedures Referred By Contac t Referred To Contact [facility] Diagnoses TONEY on CPAP Gastroesophageal reflux disease, unspecified whether esophagitis present S/P laparoscopic sleeve gastrectomy Procedures EGD DIAGNOSTIC ESOPHAGOGASTRODUODENOSCO PY TRANSORAL DIAGNOSTIC Jayshree Huffman APRN.CNP [address] [place] [address] [facility] [address] [place] [address] Referral ID Status Reason Start Date Expiration Date V isits Requested Visits Authorized [id number] Closed Auto-Generate d Referral 09/24/2021 09/24/2022 1 1 [facility] Summary Purpose Family History No Family [...] FoundDocuments on File Type Date Recorded Patient Supervisor Of Instruction Expl anation ACP-Advance Directive ACP-Power of Freight Loading Supervisor Latest Code Status on File Code Status Date Activated Date Inactivated Comments Full Code 01/16/2017 11:20 PM 01/21/2017 5:23 PM Documents on File Type Date Recorded Patient Supervisor Of Instruction Expl anation ACP-Advance Directive ACP-Power of Freight Loading Supervisor Latest Code Status on File Code Status Date Activated Date Inactivated Comments Full Code 01/16/2017 11:20 PM 01/21/2017 5:23 PM Documents on File Type Date Recorded Patient Supervisor Of Instruction Expl anation Advance Directive(s) 10/04/2015 12:43 PM Advance Directive(s) 09/25/2015 12:29 PM Documents on File Type Date Recorded Patient Supervisor Of Instruction Expl anation Advance Directive(s) 10/04/2015 12:43 PM Advance Directive(s) 09/25/2015 12:29 PM Advance Directive Response Recorded Date/ Time Advance Directives No October 07, 2 019 3:58pm Reason for Referral Status Reason Specialty Diagnoses / Procedures Referre d By Contact Referred To Contact Open Radiology Diagnoses S/P laparoscopic sleeve gastrectomy Procedures FL UGI FL UGI Shaylee Miles, [address] [place] [address] Specialty Diagnoses / Procedures Referred By Contac t Referred To Contact Diagnoses S/P laparoscopic sleeve gastrectomy Gastroesophageal reflux disease, unspecified whether esophagitis present Procedures XR FLUORO UPPER GI, WATER SOLUBLE AND/OR BARIUM CONTRAST Humza Walter MD [address] [place] [address] Referral ID Status Reason Start Date Expiration Date V isits Requested Visits Authorized [id number] Auth Not Needed 05/17/2021 06/11/2022 1 1 Specialty Diagnoses / Procedures Referred By Contac t Referred To Contact Diagnoses S/P laparoscopic sleeve gastrectomy TNOEY on CPAP Morbid obesity with body mass index of 50 or higher Gastroesophageal reflux disease, unspecified whether esophagitis present Other intestinal malabsorption Procedures ECG Humza Walter MD [address] [place] [address] Referral ID Status Reason Start Date Expiration Date V isits Requested Visits Authorized [id number] New Request 05/17/2021 06/11/2022 1 1 Specialty Diagnoses / Procedures Referred By Contac t Referred To Contact Psychology Diagnoses S/P laparoscopic sleeve gastrectomy TONEY on CPAP Morbid obesity with body mass index of 50 or higher Gastroesophageal reflux disease, unspecified whether esophagitis present Other intestinal malabsorption Humza Walter MD [address] [place] [address] Referral ID Status Reason Start Date Expiration Date V isits Requested Visits Authorized [id number] New Request 05/17/2021 06/11/2022 1 1 Specialty Diagnoses / Procedures Referred By Contac t Referred To Contact Nutrition and Dietetics Diagnoses S/P laparoscopic sleeve gastrectomy TONEY on CPAP Morbid obesity with body mass index of 50 or higher Gastroesophageal reflux disease, unspecified whether esophagitis present Other intestinal malabsorption Humza Walter MD [address] [place] [address] Referral ID Status Reason Start Date Expiration Date V isits Requested Visits Authorized [id number] New Request 05/17/2021 06/11/2022 1 1 Specialty Diagnoses / Procedures Referred By Contac t Referred To Contact CT IMAGING Diagnoses History of sleeve gastrectomy Gastric fistula Procedures CT ABD/PEL W IVCON CT ABD & PEL[place] [address] [place] [address] Ct Imaging Referral ID Status Reason Start Date Expiration Date Visits Requested Visits Authorized [id number] Pending Review Auto-Generat ed Referral 11/04/2021 12/04/2022 1 1 Specialty Diagnoses / Procedures Referred By Contac t Referred To Contact XR IMAGING Diagnoses History of sleeve gastrectomy Gastric fistula Procedures XR UPPER GI SINGLE CONTRAST RADIOLOGIC EXAM UPR GI [place] [address] [place] [address] Xr Imaging Referral ID Status Reason Start Date Expiration Date Visits Requested Visits Authorized [id number] Pending Review Auto-Generat ed Referral 11/04/2021 12/04/2022 1 1 Referral ID Status Reason Start Date Expiration Date V isits Requested Visits Authorized [id number] Closed Auto-Generate d Referral 01/05/2022 06/28/2022 2 2 Specialty Diagnoses / Procedures [facility] To Contact Diagnoses BMI 70 and over, adult (HCC) Gastroesophageal reflux disease, unspecified whether esophagitis present Procedures IN PERSON CONSULT TO PACC Jayshree Huffman APRN.SEED TRUCKER [address] [place] [address] Referral ID Status Reason Start Date Expiration Date Visits Requested Visits Authorized [id number] Ref Not Required PCP Requested Referral 2 [...] section and content) DATE CREATED AUTHOR 12/23/2017 [facility] DATE CREATED AUTHOR AUTHOR'S ORGANIZ ATION 03/29/2020 [facility] DATE CREATED AUTHOR AUTHOR'S ORGANIZ ATION 04/07/2020 [facility] DATE CREATED AUTHOR AUTHOR'S ORGANIZ ATION 04/11/2020 [facility] DATE CREATED AUTHOR AUTHOR'S ORGANIZ ATION 10/01/2021 [facility] DATE CREATED AUTHOR AUTHOR'S ORGANIZ ATION 12/11/2021 [facility] DATE CREATED AUTHOR AUTHOR'S ORGANIZ ATION 02/19/2022 [facility] DATE CREATED AUTHOR AUTHOR'S ORGANIZ ATION 11/07/2022 [facility] DATE CREATED AUTHOR AUTHOR'S ORGANIZ ATION 12/15/2022 [facility] DATE CREATED AUTHOR AUTHOR'S ORGANIZ ATION 08/18/2023 [facility] DATE CREATED AUTHOR AUTHOR'S ORGANIZ ATION 12/05/2023 [facility] DATE CREATED AUTHOR AUTHOR'S ORGANIZ ATION 12/13/2023 [facility] DATE CREATED AUTHOR AUTHOR'S ORGANIZ ATION 03/19/2024 [facility] EPIC Reason for Visit (unrecogniz ed section and content) Status Reason Specialty Diagnoses / Procedures Re ferred By Contact Referred To Contact Diagnoses Obesity OBESITY Procedures AK ESOPHAGOGASTRODUODENOSCOPY TRANSORAL DIAGNOSTIC EGD ESOPHAGOGASTRODUODENOSCOPY Kylah Vargas, [address] [facility] [address] [place] [address] [facility] Reason Comments Consult Est Care/Revision/ S leeve 05/2017 Reason Comments Obesity GERD Reason Onset Date Comments Reassessment 11/04/2021 Patient Education 11/04/2021 Reason Comments New Patient Reason Comments No Show Reason Onset Date Comments Reassessment 01/17/2022 Patient Education 01/17/2022 Specialty Diagnoses / Procedures Referred By Contac t Referred To Contact Nutrition / GENERAL SURGERY Diagnoses Follow-up exam OrangePurple/0 diet/Harned/05/2017 LSG-complications gerd Procedures PHYS/QHP TELEPHONE EVALUATION 5-10 MIN VIDEO GROUP (ZOOM) MD Yodit Jason Erin, RD [address] [place] [address] Referral ID Status Reason Start Date Expiration Date Visits Re quested Visits Authorized [id number] Closed 01/17/2022 06/28/2022 1 1 Reason Comments Obesity Specialty Diagnoses / Procedures Referred By Contac t Referred To Contact General Surgery / GENERAL SURGERY Diagnoses Follow-up exam imaging follow up Procedures PHYS/QHP TELEPHONE EVALUATION 5-10 [place] [address] [place] [address] [place] [address] [place] [address] Referral ID Status Reason Start Date Expiration Date Visits Re quested Visits Authorized [id number] Closed 01/20/2022 06/28/2022 1 1 Specialty Diagnoses / Procedures [facility] To Contact CT [facility] Diagnoses History of sleeve gastrectomy Gastric fistula Procedures CT ABD/PEL W IVCON CT ABD & PELVIS W/[place] [address] [place] [address] Ct Imaging Referral ID Status Reason Start Date Expiration Date V isits Requested Visits Authorized [id number] Closed Auto-Generate d Referral 01/05/2022 06/28/2022 2 [...] Education Specialty Diagnoses / Procedures [facility] Referred To Contact Diagnoses Abnormal weight gain Preop testing Snoring Sleep-disordered breathing Fatigue, unspecified type S/P bariatric surgery BMI 70 and over, adult (HCC) Procedures CONSULT TO SLEEP MEDICINE - ADULT OFFICE/OUTPATIENT [facility] 60-74 MINUTES Amina Nieto MD [address] [place] [address] Referral ID Status Reason Start Date Expiration Date V isits Requested Visits Authorized [id number] Closed PCP Requested Referral 06/04/2022 05/31/2023 1 1 Reason Comments Anesthesia Consult Specialty Diagnoses / Procedures [facility] Referred To Contact ANESTHESIOLOGY Diagnoses Preop examination Procedures PREOP ANES OR PROXY B/4 SURG Joe Granda MD [address] [place] [address] Pre [address] [place] [address] Referral ID Status Reason Start Date Expiration Date V isits Requested Visits Authorized [id number] Authorized 06/29/2022 06/28/2023 99 99 Reason Comments Patient Left Without Being Seen Specialty Diagnoses / Procedures Referred By Tiarra t Referred To Contact ANESTHESIOLOGY Diagnoses Preop examination Procedures PREOP ANES OR PROXY SURG Joe Granda MD [address] [place] [address] Pre Anes [address] [place] [address] Reason Comments Post Op Reason Comments Post Op 7-10 day gastrectomy Reason Comments Post Op S/p BPD/DS 08/04/23 Reason Comments Follow Up Weight Loss Surgery Reason Comments Refill Request Care Teams (unrecognized sec tion and content) Lathe Winder Relationship Specialty Start Date End Date Elizabet Simental DO [address] [place] [address] PCP - General Family Medicine 03/21/21 Lathe Winder Relationship Specialty Start Date End Date Geneva Estrada, SEED TRUCKER [address] [place] [address] PCP - General Family Practice 10/01/11 Lathe Winder Relationship Specialty Start Date End Date Geneva Estrada, SEED TRUCKER [address] [place] [address] PCP - General Family Practice 10/01/11 Lathe Winder Relationship Specialty Start Date End Date Geneva Estrada, SEED TRUCKER [address] [place] [address] PCP - General Family Practice 10/01/11 Lathe Winder Relationship Specialty Start Date End Date Geneva Estrada, SEED TRUCKER [address] [place] [address] PCP - General Family Practice 10/01/11 Lathe Winder Relationship Specialty Start Date End Date Geneva Estrada, SEED TRUCKER [address] [place] [address] PCP - General Family Practice 10/01/11 Lathe Winder Relationship Specialty Start Date End Date LucasshermanGeneva mauro, SEED TRUCKER [address] [place] [address] PCP - General Family Practice 10/01/11 Lathe Winder Relationship Specialty Start Date End Date Geneva Estrada, SEED TRUCKER [address] [place] [address] PCP - General Family Practice 10/01/11 Lathe Winder Relationship Specialty Start Date End Date Geneva Estrada, SEED TRUCKER [address] [place] [address] PCP - General Family Practice 10/01/11 Lathe Winder Relationship Specialty Start Date End Date [facility], SEED TRUCKER [address] [place] [address] PCP - General Family Practice 10/01/11 Lathe Winder Relationship Specialty Start Date End Date LucasshermanGeneva mauro, SEED TRUCKER [address] [place] [address] PCP - General Family Practice 10/01/11 Lathe Winder Relationship Specialty Start Date End Date Geneva Estrada, SEED TRUCKER [address] [place] [address] PCP - General Family Practice 10/01/11 Lathe Winder Relationship Specialty Start Date End Date Geneva Estrada, SEED TRUCKER [address] [place] [address] PCP - General Family Medicine 10/01/11 Team Status: Inactive Member Role Status Dates NON STAFF Primary Care Provider Active Christa Nayeli , CLINICAL STAFF RN-C Attending Provider Active Team Status: Active Member Role Status Dates NON STAFF Primary Care Provider Active Lathe Winder Relationship Specialty Start Date End Date Rumschlaroro, Elizabet [address] [place] [address] PCP - General Family Medicine 04/16/22 Lathe Winder Relationship Specialty Start Date End Date Rumschlag, Elizabet [address] [place] [address] PCP - General Family Medicine 04/16/22 Lathe Winder Relationship Specialty Start Date End Date Rumschlag, Elizabet [address] [place] [address] PCP - General Family Medicine 04/16/22 Lathe Winder Relationship Specialty Start Date End Date Rumschlaroro, Elizabet [address] [place] [address] PCP - General Family Medicine 04/16/22 Lathe Winder Relationship Specialty Start Date End Date Rumschlaroro, Elizabet [address] [place] [address] PCP - General Family Medicine 04/16/22 Lathe Winder Relationship Specialty Start Date End Date Rumschlaroro, Elizabet [address] [place] [address] PCP - General Family Medicine 04/16/22 Lathe Winder Relationship Specialty Start Date End Date Rumschlag, Elizabet [address] [place] [address] PCP - General Family Medicine 04/16/22 Lathe Winder Relationship Specialty Start Date End Date Rumschlag, Elizabet [address] [place] [address] PCP - General Family Medicine 04/16/22 Lathe Winder Relationship Specialty Start Date End Date RumschlagKaylinty [address] [place] [address] PCP - General Family Medicine 04/16/22 Lathe Winder Relationship Specialty Start Date End Date Rumschlag, Elizabet [address] [place] [address] PCP - General Family Medicine 04/16/22 Lathe Winder Relationship Specialty Start Date End Date Rumschlag, Elizabet [address] [place] [address] PCP - General Family Medicine 04/16/22 Lathe Winder Relationship Specialty Start Date End Date Rumschlag, Elizabet [address] [place] [address] PCP - General Family Medicine 04/16/22 Lathe Winder Relationship Specialty Start Date End Date Rumschlag, Elizabet [address] [place] [address] PCP - General Family Medicine 04/16/22 Lathe Winder Relationship Specialty Start Date End Date Rumschlag, Elizabet, DO [address] [place] [address] PCP - General Family Medicine 04/16/22 Lathe Winder Relationship Specialty Start Date End Date Rumschlag, Elizabet, DO [address] [place] [address] PCP - General Family Medicine 04/16/22 Lathe Winder Relationship Specialty Start Date End Date Rumschlag, Elizabet, DO [address] [place] [address] PCP - General Family Medicine 04/16/22 Lathe Winder Relationship Specialty Start Date End Date Rumschlag, Elizabet, DO [address] [place] [address] PCP - General Family Medicine 04/16/22 Lathe Winder Relationship Specialty Start Date End Date Rumschlag, Elizabet, DO [address] [place] [address] PCP - General [facility] Medicine 04/16/22 Lathe Winder Relationship Specialty Start Date End Date Rumschlag, Elizabet, DO [address] [place] [address] PCP - [facility] Medicine 04/16/22 Lathe Winder Relationship Specialty Start Date End Date Rumschlag, Elizabet, DO [address] [place] [address] PCP - General [facility] Medicine 04/16/22 Lathe Winder Relationship Specialty Start Date End Date Rumschlag, Elizabet, DO [address] [place] [address] PCP - General [facility] Medicine 04/16/22 Lathe Winder Relationship Specialty Start Date End Date Rumschlag, Elizabet, DO [address] [place] [address] PCP - General Family Medicine 04/16/22 Lathe Winder Relationship Specialty Start Date End Date Rumschlag, Elizabet, DO [address] [place] [address] PCP - General Family Medicine 04/16/22 Source Comments (unrecognize d section and content) In the event this informatio n is protected by the [facility] Confidentiality of Alcohol and Drug Abuse Patient Records regulations: The Federal rules restrict any use of the information to criminally investigate or prosecute any alcohol or drug abuse patient.[facility] the event this information is protected by the Federal Confidentiality of Alcohol and Drug Abuse Patient Records regulations: The Federal rules restrict any use of the information to criminally investigate or prosecute any alcohol or drug abuse patient.[facility] Hospital[facility] the event this information is protected by the Federal Confidentiality of Alcohol and Drug Abuse Patient Records regulations: The Federal rules restrict any use of the information to criminally investigate or prosecute any alcohol or drug abuse patient.[facility] HospitalIn the event this information is protected [...] or prosecute any alcohol or drug abuse patient.[facility] HospitalIn the event this information is protected by the Federal Confidentiality of Alcohol and Drug Abuse Patient Records regulations: The Federal rules restrict any use of the information to criminally investigate or prosecute any alcohol or drug abuse patient.[facility] HospitalIn the event this information is protected by the Federal Confidentiality of Alcohol and Drug Abuse Patient Records regulations: The Federal rules restrict any use of the information to criminally investigate or prosecute any alcohol or drug abuse patient.[facility] HospitalIn the event this information is protected by the Federal Confidentiality of Alcohol and Drug Abuse Patient Records regulations: The Federal rules restrict any use of the information to criminally investigate or prosecute any alcohol or drug abuse patient.[facility] HospitalIn the event this information is protected by the Federal Confidentiality of Alcohol and Drug Abuse Patient Records regulations: The Federal rules restrict any use of the information to criminally investigate or prosecute any alcohol or drug abuse patient.[facility] HospitalIn the event this information is protected by the Federal Confidentiality of Alcohol and Drug Abuse Patient Records regulations: The Federal rules restrict any use of the information to criminally investigate or prosecute any alcohol or drug abuse patient.[facility] HospitalIn the event this information is protected by the Federal Confidentiality of Alcohol and Drug Abuse Patient Records regulations: The Federal rules restrict any use of the information to criminally investigate or prosecute any alcohol or drug abuse patient.[facility] HospitalIn the event this information is protected by the Federal Confidentiality of Alcohol and Drug Abuse Patient Records regulations: The Federal rules restrict any use of the information to criminally investigate or prosecute any alcohol or drug abuse patient.[facility] HospitalIn the event this information is protected by the Federal Confidentiality of Alcohol and Drug Abuse Patient Records regulations: The Federal rules restrict any use of the information to criminally investigate or prosecute any alcohol or drug abuse patient.[facility] HospitalIn the event this information is protected by the Federal Confidentiality of Alcohol and Drug Abuse Patient Records regulations: The Federal rules restrict any use of the information to criminally investigate or prosecute any alcohol or drug abuse patient.[facility] HospitalIn the event this information is protected by the Federal Confidentiality of Alcohol and Drug Abuse Patient Records regulations: The Federal rules restrict any use of the information to criminally investigate or prosecute any alcohol or drug abuse patient.[facility] HospitalIn the event this information is protected by the Federal Confidentiality of Alcohol and Drug Abuse Patient Records regulations: The Federal rules restrict any use of the information to criminally investigate or prosecute any alcohol or drug abuse patient.[facility] HospitalIn the event this information is protected by the Federal Confidentiality of Alcohol and Drug Abuse Patient Records regulations: The Federal rules restrict any use of the information to criminally investigate or prosecute any alcohol or drug abuse patient.[facility] HospitalIn the event this information is protected by the Federal Confidentiality of Alcohol and Drug Abuse Patient Records regulations: The Federal rules restrict any use of the information to criminally investigate or prosecute any alcohol or drug abuse patient.[facility] HospitalIn the event this information is protected by the Federal Confidentiality of Alcohol and Drug Abuse Patient Records regulations: The Federal rules restrict any use of the information to criminally investigate or prosecute any alcohol or drug abuse patient.[facility] HospitalIn the event this information is protected by the Federal Confidentiality of Alcohol and Drug Abuse Patient Records regulations: The Federal rules restrict any use of the information to criminally investigate or prosecute any alcohol or drug abuse patient.[facility] HospitalIn the event this information is protected by the Federal Confidentiality of Alcohol and Drug Abuse Patient Records regulations: The Federal rules restrict any use of the information to criminally investigate or prosecute any alcohol or drug abuse patient.[facility] HospitalIn the event this information is protected by the Federal Confidentiality of Alcohol and Drug Abuse Patient Records regulations: The Federal rules restrict any use of the information to criminally investigate or prosecute any alcohol or drug abuse patient.[facility] HospitalIn the event this information is protected by the Federal Confidentiality of Alcohol and Drug Abuse Patient Records regulations: The Federal rules restrict any use of the information to criminally investigate or prosecute any alcohol or drug abuse patient.[facility] HospitalIn the event this information is protected by the Federal Confidentiality of Alcohol and Drug Abuse Patient Records regulations: The Federal rules restrict any use of the information to criminally investigate or prosecute any alcohol or drug abuse patient.[facility] HospitalIn the event this information is protected by the Federal Confidentiality of Alcohol and Drug Abuse Patient Records regulations: The Federal rules restrict any use of the information to criminally investigate or prosecute any alcohol or drug abuse patient.[facility] HospitalIn the event this information is protected by the Federal Confidentiality of Alcohol and Drug Abuse Patient Records regulations: The Federal rules restrict any use of the information to criminally investigate or prosecute any alcohol or drug abuse patient.[facility] HospitalIn the event this information is protected by the Federal Confidentiality of Alcohol and Drug Abuse Patient Records regulations: The Federal rules restrict any use of the information to criminally investigate or prosecute any alcohol or drug abuse patient.[facility] HospitalIn the event this information is protected by the Federal Confidentiality of Alcohol and Drug Abuse Patient Records regulations: The Federal rules restrict any use of the information to criminally investigate or prosecute any alcohol or drug abuse patient.[facility] HospitalIn the event this information is protected by the Federal Confidentiality of Alcohol and Drug Abuse Patient Records regulations: The Federal rules restrict any use of the information to criminally investigate or prosecute any alcohol or drug abuse patient.[facility] HospitalIn the event this information is protected by the Federal Confidentiality of Alcohol and Drug Abuse Patient Records regulations: The Federal rules restrict any use of the information to criminally investigate or prosecute any alcohol or drug abuse patient.[facility] HospitalIn the event this information is protected by the Federal Confidentiality of Alcohol and Drug Abuse Patient Records regulations: The Federal rules restrict any use of the information to criminally investigate or prosecute any alcohol or drug abuse patient.[facility] HospitalIn the event this information is protected by the Federal Confidentiality of Alcohol and Drug Abuse Patient Records regulations: The Federal rules restrict any use of the information to criminally investigate or prosecute any alcohol or drug abuse patient.[facility] HospitalIn the event this information is protected by the Federal Confidentiality of Alcohol and Drug Abuse Patient Records regulations: The Federal rules restrict any use of the information to criminally investigate or prosecute any alcohol or drug abuse patient.[facility] HospitalIn the event this information is protected by the Federal Confidentiality of Alcohol and Drug Abuse Patient Records regulations: The Federal rules restrict any use of the information to criminally investigate or prosecute any alcohol or drug abuse patient.[facility] HospitalIn the event this information is protected by the Federal Confidentiality of Alcohol and Drug Abuse Patient Records regulations: The Federal rules restrict any use of the information to criminally investigate or prosecute any alcohol or drug abuse patient.[facility] HospitalIn the event this information is protected by the Federal Confidentiality of Alcohol and Drug Abuse Patient Records regulations: The Federal rules restrict any use of the information to criminally investigate or prosecute any alcohol or drug abuse patient.[facility] HospitalIn the event this information is protected by the Federal Confidentiality of Alcohol and Drug Abuse Patient Records regulations: The Federal rules restrict any use of the information to criminally investigate or prosecute any alcohol or drug abuse patient.[facility] HospitalIn the event this information is protected by the Federal Confidentiality of Alcohol and Drug Abuse Patient Records regulations: The Federal rules restrict any use of the information to criminally investigate or prosecute any alcohol or drug abuse patient.[facility] HospitalIn the event this information is protected by the Federal Confidentiality of Alcohol and Drug Abuse Patient Records regulations: The Federal rules restrict any use of the information to criminally investigate or prosecute any alcohol or drug abuse patient.[facility] HospitalIn the event this information is protected by the Federal Confidentiality of Alcohol and Drug Abuse Patient Records regulations: The Federal rules restrict any use of the information to criminally investigate or prosecute any alcohol or drug abuse patient.[facility] Goals (unrecognized section and content) Goals [...] BE BASED ON THE PRIMARY CLINICAL RECORDS. [employer] [facility]. provides no warranty or guarantee of the accuracy or completeness of information in this document.
--- NOTE | 2024-03-26 15:58 | ECG_ITS ---
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
--- NOTE | 2024-03-26 15:58 | XR_ITS ---
[address] [address] Patient Name: ANGELES ORTIZ MRN: [id number] date: 1985 Sex: F Assigned Patient Location: ER Current Patient Location: ER Accession/Order Number: [id number] Exam Date: 03/26/2024 16:08 Report Date: 03/26/2024 17:04 At the request of: JUAN PERDOMO Procedure: XR chest 1V PORTABLE CHEST X-RAY. INDICATION: Chest pain. COMPARISON: None. TECHNIQUE: Single AP portable chest radiograph. FINDINGS: TUBES AND LINES: None. LUNGS: Lungs are clear. PLEURA: No effusions or pneumothorax. HEART AND MEDIASTINUM: Within normal limits for portable technique. OSSEOUS STRUCTURES: No acute abnormality. XR/XR chest 1V IMPRESSION: No acute findings. Electronically authenticated by: SHEYLA BLUM Date: 03/26/2024 17:04
[2024-03-26 16:27] LABS: Hematocrit 42.6 % (36.0-48.0); Hemoglobin 13.9 g/dL (12.0-16.0); Mean Corpuscular HGB Conc 32.6 g/dL (29.9-35.2); Mean Corpuscular Volume 88.9 fL (81.0-99.0); Platelet Count 593 10^3/uL (150-450); Red Blood Count 4.79 10^6/uL (4.20-5.40); Red Cell Distribution Width 15.3 % (11.0-15.0)
[2024-03-26] MEDS: ONDANSETRON PF 4 MG/2 ML VIAL IV (16:33)
[2024-03-26] MEDS: FAMOTIDINE/PF 20 MG/2 ML VIAL IV (16:33)
[2024-03-26 16:41] LABS: Alanine Aminotransferase 26 U/L (14-59); Albumin Globulin Ratio 0.8; Albumin Level 3.2 g/dL (3.4-5.0); Alkaline Phosphatase 106 U/L (46-116); Anion Gap 12.2; Aspartate Amino Transferase 19 U/L (15-37); BUN Creatinine Ratio 8.1; Bilirubin Total 0.2 mg/dL (0.2-1.0); Calcium 9.4 mg/dL (8.5-10.1); Carbon Dioxide 25.7 mmol/L (21.0-32.0); Chloride 101 mmol/L (98-107); Estimated GFR (African America >60 (>=60); Estimated GFR (Non-African Ame >60 (>=60); Globulin 4.2 g/dL; Glucose 97 mg/dL (74-106); Potassium 3.9 mmol/L (3.5-5.1); Sodium 135 mmol/L (136-145); Total Protein 7.4 g/dL (6.4-8.2); Troponin I High Sensitivity 5.3 pg/mL (4.0-51.3)
[2024-03-26 16:43] LABS: D Dimer 0.38 mg/L FEU (<=0.59); HCG Qualitative NEGATIVE (NEGATIVE); Internal Control Within Normal Limits
--- NOTE | 2024-03-26 16:54 | ED_ITS ---
HPI - Chest Pain General Chief Complaint: Chest Pain Stated Complaint: CHEST PAIN Time Seen by Provider: 03/26/24 15:58 Source: patient Mode of arrival: walk-in History of Present Illness HPI narrative: The patient is coming to the ER with a almost 12 hours history of chest pain that is retrosternal, this pain started last night she mentioned that it is associate with nausea, not associated with any coughing difficulty breathing fever or any recent history of immobilization or leg swelling The patient mentioned pain is not associated with taking a deep breath She have no history of previous presentation that is similar Related Data Home Medications ?Medication ?Instructions ?Recorded ?Confirmed aripiprazole 10 mg tablet 15 mg PO DAILY 12/13/22 10/02/23 buspirone 15 mg tablet 15 mg PO BID 12/13/22 10/02/23 cetirizine 10 mg tablet 10 mg PO DAILY 12/13/22 10/02/23 duloxetine 60 mg capsule,delayed 60 mg PO DAILY 12/13/22 10/02/23 release famotidine 20 mg tablet 20 mg PO Q12H PRN GI 12/13/22 10/02/23 hydroxyzine pamoate 50 mg capsule 50 mg PO DAILY PRN sleep 12/13/22 10/02/23 lamotrigine 100 mg tablet 100 mg PO DAILY 12/13/22 10/02/23 montelukast 10 mg tablet 10 mg PO DAILY 12/13/22 10/02/23 omeprazole 40 mg capsule,delayed 40 mg PO DAILY 12/13/22 10/02/23 release pantoprazole 40 mg tablet,delayed 40 mg PO DAILY GI 12/13/22 10/02/23 release propranolol 60 mg tablet 60 mg PO Q12H 12/13/22 10/02/23 hydrochlorothiazide 12.5 mg tablet 12.5 mg PO QDAY 10/02/23 10/02/23 rizatriptan 10 mg disintegrating 10 mg PO Q2H PRN migraine headache 10/02/23 10/02/23 tablet Previous Rx's ?Medication ?Instructions ?Recorded hydrocodone 5 mg-acetaminophen 325 1 tab PO Q6H PRN pain 5 days #20 03/12/24 mg tablet tabs meloxicam 15 mg tablet 15 mg PO DAILY PRN pain #7 tabs 03/26/24 Allergies Allergy/AdvReac Type Severity Reaction Status Date / Time adhesive tape Allergy Rash Verified 12/13/22 22:40 cephalexin [From Keflex] Allergy Rash Verified 12/13/22 22:40 Penicillins Allergy Rash Verified 12/13/22 22:40 amoxicillin [From Augmentin] AdvReac Gastrointestinal Verified 12/13/22 22:38 Upset clavulanic acid AdvReac Gastrointestinal Verified 12/13/22 22:38 [From Augmentin] Upset tramadol [From Ultram] AdvReac Gastrointestinal Verified 12/13/22 22:40 Upset Review of Systems ROS Status of ROS 10 or more systems reviewed and unremark able except as noted in history and below [facility] Medical History (Updated 03/26/24 @ 18:12 by Jeannie Mendez MD) Ulnar neuropathy ?G56.20 - Lesion of ulnar nerve, unspecified upper limb (ICD-10) Anemia ?D64.9 - Anemia, unspecified (ICD-10) Insomnia ?G47.00 - Insomnia, unspecified (ICD-10) PTSD (post-traumatic stress disorder) ?F43.10 - Post-traumatic stress disorder, unspecified (ICD-10) Panic attacks ?F41.0 - Panic disorder [episodic paroxysmal anxiety] (ICD-10) Anxiety ?F41.9 - Anxiety disorder, unspecified (ICD-10) Depression ?F32.A - Depression, unspecified (ICD-10) COVID-19 ?U07.1 - COVID-19 (ICD-10) Migraine ?G43.909 - Migraine, unspecified, not intractable, without status migrainosus (ICD-10) Kidney stones ?N20.0 - Calculus of kidney (ICD-10) Heartburn ?R12 - Heartburn (ICD-10) Hypertension ?I10 - Essential (primary) hypertension (ICD-10) Sleep apnea ?G47.30 - Sleep apnea, unspecified (ICD-10) Pituitary tumor ?D49.7 - Neoplasm of unspecified behavior of endocrine glands and other parts of nervous system (ICD-10) GERD (gastroesophageal reflux disease) ?K21.9 - Gastro-esophageal reflux disease without esophagitis (ICD-10) Eczema ?L30.9 - Dermatitis, unspecified (ICD-10) Chronic back pain ?M54.9 - Dorsalgia, unspecified (ICD-10) ?G89.29 - Other chronic pain (ICD-10) Bipolar depression ?F31.9 - Bipolar disorder, unspecified (ICD-10) Retained intrauterine contraceptive device (IUD) ?T83.39XA - Other mechanical complication of intrauterine contraceptive device, initial encounter (ICD-10) Surgical History (Updated 10/02/23 @ 09:19 by Mariia Moscoso NP) History of esophagogastroduodenoscopy (EGD) ?Z98.890 - Other specified postprocedural states (ICD-10) 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 - Bariatric surgery status (ICD-10) History of tonsillectomy ?Z90.89 - Acquired absence of other organs (ICD-10) History of cholecystectomy ?Z90.49 - Acquired absence of other specified parts of digestive tract (ICD- 10) History of carpal tunnel release ?Z98.890 - Other specified postprocedural states (ICD-10) History of spinal surgery ?Z98.890 - Other specified postprocedural states (ICD-10) History of spinal surgery ?Z98.890 - Other specified postprocedural states (ICD-10) H/O splenectomy ?Z90.81 - Acquired absence of spleen (ICD-10) H/O laparoscopy ?Z98.890 - Other specified postprocedural states (ICD-10) H/O gastric sleeve ?Z90.3 - Acquired absence of stomach [part of] (ICD-10) Family History (Updated 10/02/23 @ 09:19 by Mariia Moscoso NP) Other Family history of diabetes mellitus Family history of hypertension Family history of myocardial infarction Lymphoma Social History (Updated 10/02/23 @ 09:14 by Mariia Moscoso NP) Within the past year, how often did you have a drink containing alcohol: never Score interpretation: A score less than 3 is consistent with normal alcohol consumption. Smoking status: Former smoker Non-prescribed substance use: denies use Highest level of school completed/degree received: Associate degree: occupational, technical, vocational program Little interest or pleasure in doing things: not at all Feeling down, depressed, or hopeless: not at all Exam Narrative Exam Narrative: Nurses notes and vital signs reviewed and patient is not hypoxic. General: Well-appearing and in no apparent distress. Skin: Warm, dry, no pallor noted. No rash. Head: Normocephalic, atraumatic. Neck: Supple, non-tender. Eye: Pupils are equal, round and EOMI. No scleral icterus. Ears, Nose, Mouth, and Throat: TM are clear, no nasal mucosal hypertrophy. Oral mucosa is moist, no posterior oropharynx erythema, uvula is mid-line Cardiovascular: Regular Rate and Rhythm without murmur, gallop or rub. Respiratory: No accessory muscle use or respiratory distress. Lungs are clear to auscultation, no wheezing, rales or rhonchi Chest Wall: no tenderness Back: No midline thoracic or lumbar vertebral tenderness. No CVA tenderness Musculoskeletal: normal ROM, no calf or popliteal tenderness, no lower extremity edema/swelling GI: Abdomen is soft, non-distended. Normal bowel sounds. No masses appreciated. No tenderness to palpation. No rebound, guarding, or rigidity noted. Neurological: A&O x4. No cranial nerve dysfunction observed. No truncal ataxia. Moves all extremities. Sensation intact. Psychiatric: Cooperative and interactive. Normal mood and affect. Constitutional Vital Signs, click to edit/add: Last Vital Signs Temp 97.8 F 03/26/24 15:46 Pulse 76 03/26/24 17:50 Resp 29 H 03/26/24 17:50 BP 114/72 03/26/24 17:00 Pulse Ox 94 L 03/26/24 17:50 O2 Del Method Room Air 03/26/24 15:46 Course Vital Signs Vital signs: Vital Signs Temperature 97.8 F 03/26/24 15:46 Pulse Rate 87 03/26/24 15:46 Respiratory Rate 16 03/26/24 15:46 Blood Pressure 145/70 H 03/26/24 15:46 Pulse Oximetry 97 03/26/24 15:46 Oxygen Delivery Method Room Air 03/26/24 15:46 Temperature 97.8 F 03/26/24 15:46 Pulse Rate 76 03/26/24 17:50 Respiratory Rate 29 H 03/26/24 17:50 Blood Pressure 114/72 03/26/24 17:00 Pulse Oximetry 94 L 03/26/24 17:50 Oxygen Delivery Method Room Air 03/26/24 15:46 MDM - Chest Pain MDM Narrative Medical decision making narrative: EKG in the ER showing sinus rhythm with a heart rate of [address] elevation or depression The patient have a history of chronic leukocytosis that that is not new The chest x-ray the CBC and the chemistry showed no acute pathology otherwise the troponin was repeated twice and found to be negative Patient pain radiated to the back when she take a deep breath and it is induced with palpation of the intrascapular area The patient was feeling better after initial treatment she was discharged home with Mobic for pain in addition to hydration and rest The patient is to follow up with primary care physician in next 2-3 days or to return to the emergency department should any of the signs or symptoms worsen or new symptoms develop. The patient agrees with the following Diagnosis and Treatment plan and the patient will be discharged home. Lab Data Labs: Lab Results 03/26/24 03/26/24 Range/Units 16:17 17:32 WBC 15.0 H (4.0-11.0) 10^3/uL RBC 4.79 (4.20-5.40) 10^6/uL Hgb 13.9 (12.0-16.0) g/dL Hct 42.6 (36.0-48.0) % MCV 88.9 (81.0-99.0) fL MCH 29.0 (26.7-34.0) pg MCHC 32.6 (29.9-35.2) g/dL RDW 15.3 H (11.0-15.0) % Plt Count 593 H (150-450) 10^3/uL MPV 9.0 L (9.5-13.5) fL Seg Neuts % (Manual) 63.0 (43.0-75.0) Lymphocytes % (Manual) 30.0 (20.5-60.0) % Monocytes % (Manual) 3.0 (1.7-12.0) % Eosinophils % (Manual) 3.0 (0.9-7.0) % Basophils % (Manual) 1.0 (0.2-2.0) % Neutrophils # (Manual) 9.45 H (1.4-6.5) 10^3/uL Lymphocytes # (Manual) 4.50 H (1.20-3.80) 10^3/uL Monocytes # (Manual) 0.45 (0.30-0.80) 10^3/uL Eosinophils # (Manual) 0.45 (0.00-0.70) 10^3/uL Basophils # (Manual) 0.15 H (0.00-0.10) 10^3/uL D-Dimer 0.38 (<=0.59) mg/L FEU Sodium 135 L (136-145) mmol/L Potassium 3.9 (3.5-5.1) mmol/L Chloride 101 (98-107) mmol/L Carbon Dioxide 25.7 (21.0-32.0) mmol/L Anion Gap 12.2 BUN 7.0 (7.0-18.0) mg/dL Creatinine 0.86 (0.55-1.02) mg/dL Est GFR ( Amer) >60 (>=60) Est GFR (Non-Af Amer) >60 (>=60) BUN/Creatinine Ratio 8.1 Glucose 97 (74-106) mg/dL Calcium 9.4 (8.5-10.1) mg/dL Total Bilirubin 0.2 (0.2-1.0) mg/dL AST 19 (15-37) U/L ALT 26 (14-59) U/L Alkaline Phosphatase 106 (46-116) U/L Troponin I High Sens 5.3 <4.0 L (4.0-51.3) pg/mL Total Protein 7.4 (6.4-8.2) g/dL Albumin 3.2 L (3.4-5.0) g/dL Globulin 4.2 g/dL Albumin/Globulin Ratio 0.8 Serum HCG, Qual Negative (NEGATIVE) Discharge Plan Discharge Chief Complaint: Chest Pain Clinical Impression: Atypical chest pain Patient Disposition: Home, Self-Care Time of Disposition Decision: 18:12 Condition: Good Prescriptions / Home Meds: New meloxicam 15 mg tablet 15 mg PO DAILY PRN (Reason: pain) Qty: 7 0RF No Action rizatriptan 10 mg tablet,disintegrating 10 mg PO Q2H PRN (Reason: migraine headache) hydrochlorothiazide 12.5 mg tablet 12.5 mg PO QDAY hydrocodone-acetaminophen 5-325 mg tablet 1 tab PO Q6H PRN (Reason: pain) 5 Days Qty: 20 0RF aripiprazole 10 mg tablet 15 mg PO DAILY Patient Comments: HS buspirone 15 mg tablet 15 mg PO BID cetirizine 10 mg tablet 10 mg PO DAILY duloxetine 60 mg capsule,delayed release(/EC) 60 mg PO DAILY famotidine 20 mg tablet 20 mg PO Q12H PRN (Reason: GI) hydroxyzine pamoate 50 mg capsule 50 mg PO DAILY PRN (Reason: sleep) lamotrigine 100 mg tablet 100 mg PO DAILY montelukast 10 mg tablet 10 mg PO DAILY omeprazole 40 mg capsule,delayed release(DR/EC) 40 mg PO DAILY pantoprazole 40 mg tablet,delayed release (DR/EC) 40 mg PO DAILY propranolol 60 mg tablet 60 mg PO Q12H Print Language: Frisian Instructions: Chest Pain (DC) Referrals: Lisa Roberts NP [Primary Care Provider] - 1 week
[2024-03-26 17:06] LABS: Basophils Abs Manual 0.15 10^3/uL (0.00-0.10); Eosinophils Absolute Manual 0.45 10^3/uL (0.00-0.70); Monocytes Absolute Manual 0.45 10^3/uL (0.30-0.80); Segmented Neut Absolute Manual 9.45 10^3/uL (1.4-6.5)
[2024-03-26 17:59] LABS: Troponin I High Sensitivity <4.0 pg/mL (4.0-51.3)
== END 2024-03-26 18:24 | disposition home or self-care (01) ==
PROVIDERS: Emergency Provider Emergency Medicine; PCP Nurse Practitioner Family
DX: R07.89 Other chest pain (principal); Z87.891 Personal history of nicotine dependence
CPT/HCPCS: 36415; 71045; 80053; 84484; 84703; 85007; 85027; 85378; 93005; 96374; 96375; 99285; J2405

== ENCOUNTER 2024-05-15 16:21 | Emergency (ER) | payer MEDICAID, SELFPAY ==
--- OUTSIDE RECORDS SUMMARY | 2024-05-15 16:37 | XMS_ITS | CCD ---
Author Organization [facility] CliniSywy Care Team Providers Care Blood Typer Name Role Phone ROSAURA ESTRADA Unavailable Unavailable RUMSCHLAG, ELIZABET Primary Care Unavailable CHANA THOMAS Referring Unavailable Kaylin Simentalty Primary Care Provider CHANA THOMAS Referring Unavailable RUMSCHLAG, ELIZABET Primary Care Unavailable KYLAH VARGAS Admitting Unavailable KYLAH VARGAS Attending Unavailable KYLAH VARGAS Referring Unavailable RUMSCHLAG, ELIZABET Primary Care Unavailable Rumschlag Elizabet TRINH Primary Care Provider LucasRosaura mauro CNP Primary Care Provider [place] Unavailable Celsa Argueta Unavailable Mary Blakely Unavailable Estella Nguyen Unavailable Bambi Gonzalez Unavailable Christa Tyler Unavailable Rosaura Estrada CNP Primary Care Provider Rob Garcia Unavailable LucasRosaura mauro CNP Primary Care Provider NON STAFF Primary Care Provider UnavailROBERT Jo Attending Provider [phone] Elizabet Simental Primary Care Provider Elizabet Simental Primary Care Provider [phone] ARMANDOC, DR JAVED Attending Unavailable MISC, DR JAVED Admitting Unavailable [facility] Primary Care Unavailable MISC, DR DOCTOR Attending Unavailable MISC, DR JAVED Consulting Unavailable MISC, DR JAVED Admitting Unavailable [facility] Primary Care Unavailable WEST, DR ESTELLA Steiner Consulting Unavailable REQUEST, DR GUTIÉRREZ LISTED Admitting Unavaila ble REQUEST, DR GUTIÉRREZ LISTED Attending Unavaila ble [facility] Primary Care Unavailable MISC, DR JAVED Consulting Unavailable MISC, DR JAVED Consulting Unavailable MISC, DR JAVED Admitting Unavailable [facility] Primary Care Unavailable MISC, DR JAVED Attending Unavailable Darrel Nichols Consulting Unavailable RUMSCHLAG, ELIZABET Consulting Unavailable MISC, DR JAVED Attending Unavailable MISC, DR JAVED Admitting Unavailable [facility] Primary Care Unavailable HAY ., DR STEPHENS Admitting Unavailable HAY ., DR STEPHENS Attending Unavailable [facility] Primary Care Unavailable PATRICIA ., MICHELLE MCGINNIS Consulting Unavailabl e ESTELLA ALVES Consulting Unavailable PATRICIA ., MICHELLE MCGINNIS Consulting Unavailabl e BERENICE BAKER Admitting Unavailable [facility] Primary Care Unavailable BERENICE BAKRE Attending Unavailable MANPREET TORRES Consulting Unavailable JARON FABIAN Admitting Unavailable DENYS ., MR JEFF Consulting Unavailable JARON FABIAN Attending Unavailable [facility] Primary Care Unavailable Linda South Unavailable Christa Tyler Attending Unavailable Christa Tyler Admitting Unavailable NON STAFF Primary Care Unavailable Linda South Attending Unavailable Linda South Admitting Unavailable NON STAFF Primary Care Unavailable Rumschlag DO, Elizabet Primary Care Provider JOE GRANDA Attending Unavailable RUMSCHLAG, ELIZABET Primary Care Unavailable JOE GRANDA Admitting Unavailable JOE GRANDA Attending Unavailable RUMSCHLAG, ELIZABET Primary Care Unavailable LIZBETH GRANDASSTrupti Irizarry Admitting Unavailable Rumschlag DO, Elizabet Primary Care Provider Rumschlag DO, Elizabet Primary Care Provider Shaylee Kendall Unavailable Unavailable OTILIO LEON Referring [facility] Care Unava ilable OTILIO LEON Referring Unavailable SERVICES, [facility] Primary Care Unava ilable OTILIO LEON Attending Unavailable OTILIO LEON Referring Unavailable SERVICES, [facility] Primary Care Unava ilable MONROE, OTILIO Naqvi Admitting Unavailable CAROLYN, OTILIO Naqvi Attending Unavailable CAROLYN, OTILIO Naqvi Referring Unavailable SERVICES, [facility] Unava ilable YOSHI DELGADO Attending Unavailable SERVICES, [facility] Unava ilable MONROE, OTILIO Naqvi Admitting Unavailable CAROLYN, OTILIO Naqvi Attending Unavailable CAROLYN, OTILIO Naqvi Referring Unavailable SERVICES, [facility] Unava ilable YOSHI DELGADO Attending Unavailable SERVICES, [facility] Unava ilable SERVICES, [facility] Unava ilable SERVICES, [facility] Unava ilable LYNDON NORMAN Attending Unavailable CHERRIJAMIE Attending Unavailable CHERRIJAMIE Attending Unavailable APLINGBUSHRA Attending Unavailable APLINGBUSHRA Referring Unavailable CAROLYN, OTILIO Naqvi Attending Unavailable APLINGBUSHRA Attending Unavailable CAROLYN, OTILIO Naqvi Attending Unavailable APLINGBUSHRA Attending Unavailable APLINGBUSHRA Attending Unavailable CUELLARSHERRY Attending Unavailable MYERHOLTZ, ZOHRA Referring Unavailable JAMIE HARLEY Attending Unavailable PRINCE COLINDRES Attending Unavailable MYERHOLTZ, ZOHRA Referring Unavailable CUELLARSHERRY Attending Unavailable MYERHOLTZ, ZOHRA Referring Unavailable PRINCE COLINDRES Attending Unavailable MYERHOLTZ, ZOHRA Referring Unavailable PRINCE COLINDRES Attending Unavailable MYERHOLTZ, ZOHRA Referring Unavailable JENSPRINCE Attending Unavailable MYERHOLTZ, ZOHRA Referring Unavailable APLINGBUSHRA Attending Unavailable CUELLARSHERRY Attending Unavailable MYERHOLTZ, ZOHRA Referring Unavailable PRINCE COLINDRES Attending Unavailable MYERHOLTZ, ZOHRA Referring Unavailable APLINGBUSHRA Attending Unavailable RUMSCHLAG, ELIZABET Primary Care Unavailable RUMSCHLAG, ELIZABET Primary Care Unavailable JOE GRANDA Referring Unavailable JOE GRANDA Attending Unavailable RUMSCHLAG, ELIZABET Primary Care Unavailable JOE GRANDA Referring Unavailable EARL MCGEE Attending Unavailable RUMSCHLAG, ELIZABET Primary Care Unavailable RUMSCHLAG, ELIZABET Primary Care Unavailable JOE GRANDA Referring Unavailable RUMSCHLAG, ELIZABET Primary Care Unavailable NONI SUMMERS Referring Unavailable RUMSCHLAG, ELIZABET Primary Care Unavailable JOE GRANDA Referring Unavailable JAYSHREE HUFFMAN Attending Unavailable RUMSCHLAG, ELIZABET Primary Care Unavailable MONSIVAIS, KARON Attending Unavailable RUMSCHLAG, ELIZABET Primary Care Unavailable GORTY, AMINA A Attending Unavailable RUMSCHLAG, ELIZABET Primary Care Unavailable GUTNICK, JOE R Referring Unavailable RUMSCHLAG, ELIZABET Primary Care Unavailable GUTNICK, JOE R Referring Unavailable MONSIVAIS, KARON Attending Unavailable RUMSCHLAG, ELIZABET Primary Care Unavailable GUTNICK, JOE R Referring Unavailable SAYRA, MARY Attending Unavailable RUMSCHLAG, ELIZABET Primary Care Unavailable GUTNICK, JOE R Referring Unavailable SANTIAGO, CHRISTOPHER Attending Unavailable RUMSCHLAG, ELIZABET Primary Care Unavailable GUTNICK, JOE R Referring Unavailable GITA, JAYSHREE Attending Unavailable RUMSCHLAG, ELIZABET Primary Care Unavailable GITA, JAYSHREE Referring Unavailable RUMSCHLAG, ELIZABET Primary Care Unavailable GUTNICK, JOE R Referring Unavailable SAYRA, MARY Attending Unavailable RUMSCHLAG, ELIZABET Primary Care Unavailable GITA, JAYSHREE Attending Unavailable RUMSCHLAG, ELIZABET Primary Care Unavailable JAYSHREE HUFFMAN Referring Unavailable RUMSCHLAG, ELIZABET Primary Care Unavailable SELF Referring Unavailable GORTY, AMINA A Attending Unavailable Myerholtz, Zohra K Primary Care Unavailab le [place] Attending Unavailable [place] Admitting Unavailable [place] Attending Unavailable [place] Admitting Unavailable Myerholtz, Zohra K Primary Care Unavailab le Allergies Allergy Classification Reported Allergen(s) Allergy Type Date of Onset Reaction(s) Facility (2 sources) Adhesive Tape Propensity to adverse reactions to drug 10-11-19 17 Rash [place] (6 sources) Penicillins; Translations: [PENICILLINS] Propensity to adverse reactions to drug 05-29-20 17 Hives, Rash [place] (20 sources) traMADol; Translations: [Ultram TABS] Drug Allergy 08-28-19 13 Hives, rash, Itching [place] (20 sources) Amoxicillin-Pot Clavulanate; Translations: [AMOXICILLIN-POT CLAVULANATE] Propensity to adverse reactions to drug 10-11-19 17 Diarrhea, Other (See Comments) [place] (20 sources) Cephalexin; Translations: [CEPHALEXIN] Drug Allergy 05-06-20 19 Rash, Itching [facility] (1 source) *Adhesive Tape Propensity to adverse reactions 11-10-19 07 [facility] (7 sources) Penicillins Drug Allergy 05-06-20 19 [facility] (20 sources) traMADol; Translations: [TRAMADOL HCL] Drug Allergy 03-13-20 15 Itching [facility] (20 sources) Adhes. Snep-Ayuu-Pngvsdu onium; Translations: [ADHES. VGMM-[id number]-[id number] ONIUM] Drug Allergy 03-13-20 15 Rash [facility] (20 sources) Adhesive Tape-Silicones; Translations: [ADHESIVE TAPE-SILICONES] Drug Allergy 05-06-20 19 [facility] (9 sources) Amoxicillin / Clavulanate; Translations: [Augmentin TABS] Drug Allergy stomach upset [id number] r 206A [employer] Work Phone: (1 source) Cephalexin; Translations: [Keflex TABS] Drug Allergy [id number]-VAWZC-[id number] r 206A [facility] Work Phone: (1 source) Penicillins; Translations: [Penicillins] Allergy to drug (finding) TS-[id number]-[id number] r 206A [facility] Work Phone: (11 sources) Adhesive agent; Translations: [Adhesive] Propensity to adverse reactions 11-10-19 07 rash,blisterin g, [facility] (8 sources) Cephalexin; Translations: [Keflex] Drug Allergy itchy [facility] (9 sources) Doxycycline Drug Allergy stomach upset pinion-pins Other (9 sources) penicillAMINE Drug Allergy rash [facility] [employer] Other (9 sources) Penicillin G Drug Allergy Unknown [facility] [employer] Other (20 sources) Penicillins Drug Allergy 05-06-20 19 [facility] (2 sources) Amoxicillin / Clavulanate Drug Allergy 12-18-19 17 stomach upset [facility] (1 source) Penicillins Drug allergy (disorder) [facility] (1 source) traMADol Drug Allergy 08-28-19 13 [facility] (18 sources) Penicillins Drug Allergy 05-29-20 17 Hives, Rash [facility] (18 sources) Wound Dressing Adhesive Drug Allergy 03-13-20 15 Rash [facility] Healthcare Medications Current Medications Medication Drug Class(es) Dates [...] as needed. Take 2 tablets by mo uth every 6 hours for 4 days. ARIPiprazole 15 mg oral tablet (20 sources) Atypical Antipsychotic Start: 11-06-19 24 take 1 tablet by mouth at bedtime ARIPiprazole (Abilify) 15 MG tablet Take 15 mg by mouth at bedtime 11/06/2023 Active Start: 11-25-2021 take 1 tablet by claudia th once daily at bedtime ARIPiprazole (ABILIFY) 10 mg tablet Take 10 mg by mouth daily at bedtime. 11/25/2021 Active Start: 04-30-2021 take 1 tablet by claudia th at bedtime aripiprazole 5 MG tablet Take 5 mg by mouth at bedtime. 0 04/30/2021 Active Comment on above: Take 10 mg by mouth daily at bedtime. biotin 10 mg oral tablet (18 sources) biotin 10 MG tablet Take 10 mg by mouth Active busPIRone hydrochloride 15 mg oral tablet (20 [...] by claudia th every 12 hours. calcium carbonate 500 mg oral tablet (18 sources) take 1 tablet by mouth in the morning calcium carbonate (Os-Harpreet) 1250 (500 Ca) MG tablet Take 1,250 mg by mouth in the morning and 1,250 mg before bedtime. Active calcium citrate 1040 mg oral tablet (20 sources) take 2 tablets by mouth once daily calcium citrate 250 MG tablet Take 500 mg by mouth Daily Active Calcium Citrate Active cetirizine hydrochloride 10 mg oral tablet [...] 1 tablet by claudia th every afternoon. cholecalciferol 0.025 mg oral capsule (20 sources) Vitamin D Start: take 2 capsules by mouth once daily Cholecalciferol, Vitamin D3, 25 mcg (1,000 unit) cap Indications: Impaired intestinal absorption , S/P bariatric surgery , Vitamin D deficiency Take 2 capsules by mouth once daily. 60 capsule 2 11/02/2023 Active cholecalciferol (Vitamin D-3) 1.25 MG (18659 UT) capsule Active 1 ml diphenhydrAMINE hydrochloride 50 mg/ml cartridge (1 source) Histamine-1 Receptor Antagonist Start: 04-06-2020 End: 04-06-2020 diphenhydrAMINE (BENADRYL) injection 12.5 mg docusate sodium 50 mg / sennosides, intermediate 8.6 mg oral tablet (11 sources) Start: [...] unless otherwise advised. Take 1 tablet by [facility] once daily. DULoxetine 60 mg delayed release oral capsule (20 sources) Serotonin and Norepinephrine Reuptake Inhibitor Start: take 1 capsule by mouth twice daily DULoxetine [address] Particles capsule DR Take 60 mg by mouth 2 times daily. 0 04/25/2021 Active Start: 07-27-2019 take 1 capsule by [facility] once daily DULoxetine (CYMBALTA) 60 MG extended release capsule TAKE 1 CAPSULE BY MOUTH DAILY 0 07/27/2019 Active Cymbalta Active Comment on above: Take 60 mg by mouth once daily. eletriptan 20 mg oral tablet (18 sources) Serotonin-1b and Serotonin-1d Receptor Agonist eletriptan (Relpax) 20 MG tablet Take 20 mg by mouth 1 (one) time if needed for migraine May repeat in 2 hours if unresolved. Do not exceed 80 mg in 24 hours. Max 3 days a week Active esomeprazole 20 mg delayed release oral capsule (19 sources) Proton Pump Inhibitor esomeprazo le (NexIUM) [address] capsule 1 capsule 1 (one) time each day at the same time Active End: 09-23-2021 take 1 capsule by mouth once daily esomeprazole (NEXIUM) 40 mg capsule Take 40 mg by mouth once daily. 0 09/23/2021 Discontinued (Discontinued by another Health Care Provider) Comment on above: Take 40 mg by mouth once daily. famotidine 20 mg oral tablet (20 sources) Histamine-2 Receptor Antagonist Start: 11-06-2023 take 1 tablet by mouth once daily at bedtime as needed famotidine (Pepcid) 20 MG tablet TAKE 1 TABLET BY MOUTH AT BEDTIME ONCE DAILY NEEDED 11/06/2023 Active Start: 10-20-2019 take 1 tablet by claudia th every twelve hours as needed famotidine (PEPCID) 20 mg tablet Take 20 mg by mouth twice daily as needed. 0 08/26/2021 Active Comment on above: Take 20 mg by mouth twice daily as needed. 2 ml fentaNYL 0.05 mg/ml injection (1 source) Opioid Agonist Start: 04-06-2020 fentaNYL (SUBLIMAZE) injection 25 mcg ferrous sulfate 325 mg oral tablet (20 sources) Start: 11-02-2023 take 1 tablet by mouth once daily ferrous sulfate 325 mg (65 mg iron) tablet Indications: Impaired intestinal absorption , S/P bariatric surgery , Iron deficiency Take 1 tablet by mouth once daily. 30 tablet 2 11/02/2023 Active Start: 11-02-2023 take 1 tablet by claudia th in the morning ferrous sulfate 325 (65 Fe) MG tablet Take 325 mg by mouth in the morning. 11/02/2023 Active fluticasone propionate 0.05 mg/actuat metered dose nasal spray (20 sources) Corticosteroid Start: 04-25-2021 take 2 spray(s) nasal route once daily [...] 20 mg/ml injection (1 source) Arteriolar Vasodilator Start : 04-06 hydrALAZINE (APRESOLINE) injection 5 mg hydroCHLOROthiazide 12.5 mg oral tablet (18 sources) Thiazide Diuretic take 1 tablet by mouth once daily in the morning hydroCHLOROthiazide (HYDRODiuril) 12.5 MG tablet TAKE 1 TABLET BY MOUTH IN THE MORNING EVERY DAY Active hydrOXYzine pamoate 50 mg oral capsule (20 sources) Antihistamine Start : 01-10 -2024 take 1 capsule by mouth every twenty-four hours as needed hydrOXYzine pamoate (VISTARIL) 50 mg capsule Take 50 mg by mouth at bedtime as needed. 07/08/2023 Active End: 03-10-2023 take 1 capsule by mouth twice daily hydrOXYzine pamoate (VISTARIL) 50 mg capsule Take 50 mg by mouth twice daily. 0 03/10/2023 Discontinued (Course of therapy completed) take 1 capsule by mo uth every twenty-four hours Vistaril 25 MG 1 [...] (20 sources) Mood Stabilizer, Anti-epileptic Agent Start: take 1 tablet by mouth once daily in the morning lamoTRIgine (LAMICTAL) 100 mg tablet Take 100 mg by mouth every morning. 11/26/2021 Active Comment on above: Take 100 mg by mouth every morning. levonorgestrel 0.119685 mg/hr intrauterine system (20 sources) Progestin, Progestin-containing Intrauterine Device Start: Levonorgestrel intrauterine device levonorgestrel ( MIRENA) 21 mcg/24 hours (8 yrs) 52 mg IUD 1 Each by INTRAUTERINE route one time only. Active Levonorgestrel ( Mirena, 52 MG,) 20 MCG/DAY intrauterine device 1 each by Intrauterine route Active Mirena Active Comment on above: 1 Each by INTRAUTERI NE route one time only. loratadine 10 mg oral tablet (20 sources) End: 3 take 1 tablet by mouth once daily loratadine (Claritin) 10 MG tablet TAKE 1 TABLET BY MOUTH DAILY Oral for 30 Active Loratadine Activ e Comment on above: Take 10 mg by mouth once daily. LORazepam 0.5 mg oral tablet (3 sources) Benzodiazepine Start: 04-27-2024 LORazepam (Ativan) 0.5 MG tablet Indications: Internal derangement of right knee Take 1 tablet (0.5 mg) by mouth See administration instructions for 1 dose 1 by mouth 1 hour prior to MRI 1 tablet 04/27/2024 Active Start: 04-27-2024 LORazepam (Ati van) 0.5 MG tablet Indications: Internal derangement of right knee Take 1 tablet (0.5 mg) by mouth See administration instructions for 1 dose 1 by mouth 1 hour prior to MRI 1 tablet 04/27/2024 Active 1 ml meperidine hydrochloride 50 mg/ml injection (1 source) Opioid Agonist Start: 04-06-2020 meperidine (DEMEROL) injection 12.5 mg 24 hr metFORMIN hydrochloride 500 mg extended release oral tablet (20 sources) Biguanide Start: 11-03-2023 End: 03-04-2024 take 1 tablet by mouth once daily at dinner metFORMIN ER (GLUCOPHAGE XR) 500 mg 24 hr tablet take 1 tablet by mouth daily with dinner 30 tablet 3 03/04/2024 Active Start: 11-03-2023 take 1 tablet by claudia every twenty-four hours at mealtime metFORMIN XR (Glucophage-XR) 500 MG 24 hr tablet Take 500 mg by mouth in the evening. Take with meals 11/03/2023 Active methocarbamol 500 mg oral tablet (3 sources) Muscle Relaxant Start: 08-11-2023 End: 08-21-2023 take 1 tablet by mouth every eight hours as needed methocarbamol (ROBAXIN) 500 mg tablet Take 1 tablet by mouth three times a day as needed for up to 10 days. 21 tablet 0 08/11/2023 08/21/2023 Active Comment on above: Take 1 tablet by claudia th three times a day as needed for up to 10 days. montelukast 10 mg oral tablet (20 sources) Leukotriene Receptor Antagonist take 1 tablet by mouth once daily at bedtime montelukast (SINGULAIR) 10 mg tablet Take 10 mg by mouth daily at bedtime. Active Comment on above: Take 10 mg by mouth daily at bedtime. Multiple Vitamin (Daily-Sandor) tablet (1 source) Start: 04-25-2021 Multiple Vitamin (Daily-Sandor) tablet 1 tablet daily. 0 04/25/2021 Active Multiple Vitamin (Multi Vitamin) tablet (18 sources) Multiple Vitamin (Multi Vitamin) tablet 1 (one) time each day at the same time Active Multiple Vitamins-Minerals (Bariatric Multivitamins/Iron) capsule (18 sources) Multiple Vitamins-Minerals (Bariatric Multivitamins/Iron ) capsule Take by mouth Active mupirocin 0.02 mg/mg topical ointment (1 source) RNA Synthetase Inhibitor Antibacterial Start: 10-03-2021 Mupirocin 2 % 1 application Externally Three times a day for 7 days Sep, Active omeprazole 40 mg delayed release oral capsule (20 sources) Proton Pump Inhibitor Start: 08-11-2023 End: 11-09-2023 take 1 capsule by mouth once daily omeprazole (PRILOSEC) 20 mg capsule Take 1 capsule by mouth once daily. 1 capsule 0 08/11/2023 08/17/2023 Discontinued Start: 07-20-2023 End: 10-18-2023 take 1 capsule by mouth twice daily omeprazole (PRILOSEC) 20 mg capsule Take 1 capsule by mouth two times a day. 180 capsule 0 07/20/2023 10/18/2023 Active Start: 03-03-2023 End: 11-15-2023 take 1 capsule by mouth once daily omeprazole (PRILOSEC) 40 mg capsule Indications: Status post biliopancreatic diversion with duodenal switch Take 1 capsule by mouth once daily. 90 capsule 08/17/2023 Active Comment on above: TAKE 1 CAPSULE BY MO UT 30 MINUTES BEFORE morning meal Take 1 capsule by mo ut two times a day. Take 1 capsule by mo ut once daily. ondansetron 4 mg disintegrating oral tablet (20 sources) Serotonin-3 Receptor Antagonist Start: 08-11-19 End: 08-17-19 24 take 1 tablet by mouth every eight hours as needed for nausea ondansetron orally disintegrating (ZOFRAN ODT) 4 mg disintegrating tablet Indications: prevention of post-operative nausea and vomiting dissolve 1 tablet in mouth every 8 hours as needed for nausea/vomiting. 90 tablet 08/17/2023 Active Start: 07-20-2023 take 1 tablet by claudia every eight hours as needed ondansetron orally [...] for nausea/vomiting. OXcarbazepine 300 mg oral tablet (20 sources) Anti-epileptic Agent Start: 4 take 1 tablet by mouth once daily at bedtime OXcarbazepine (TRILEPTAL) 300 mg tablet Take 300 mg by mouth daily at bedtime. 07/08/2023 Active Comment on above: Take 300 mg by mouth daily at bedtime. oxyCODONE hydrochloride 5 mg oral tablet (9 sources) Opioid Agonist Start: End: 4 take 1 tablet by mouth [...] by mouth daily at bedtime. 08/19/2021 Active prazosin (Minipr ess) 2 MG capsule 1 (one) time each day at the same time Active Comment on above: Take 1 mg [...] mouth 2 times daily. 0 05/13/2021 Active propranolol (Ind eral) 60 MG tablet every 12 (twelve) hours Active take 1 tablet by claudia th [...] mg by mouth once daily as needed. rizatriptan 10 mg disintegrating oral tablet (18 sources) Serotonin-1b and Serotonin-1d Receptor Agonist Start: 4 rizatriptan TECHNICAL SUPPORT REPRESENTATIVE (Maxalt-TECHNICAL SUPPORT REPRESENTATIVE) 10 MG disintegrating tablet DISSOLVE 1 TABLET BY MOUTH AT ONSET OF MIGRAINE DAILY; CAN REPEAT IN 2 (TWO) HOURS; MAX 2 (TWO) TABLETS IN 24 HOURS AND 3 (THREE) TIMES PER WEEK; MUST LAST 30 DAYS 10/05/2023 Active sucralfate 1000 mg oral tablet (20 sources) Aluminum Complex Start: 9 take 1 tablet by mouth every six [...] Dihydrofolate Reductase Inhibitor Antibacterial, Sulfonamide Antimicrobial Start: 2021 take 1 tablet by mouth every twelve hours Bactrim DS 800-160 MG 1 tablet Orally Twice a day for 10 day(s) Sep, Active SUMAtriptan 50 mg oral tablet (18 sources) Serotonin-1b and Serotonin-1d Receptor Agonist SUMAtriptan (Imitrex) 50 MG tablet Active tirzepatide (MOUNJARO) 2.5 mg/0.5 mL pen injector (2 sources) Start: 2023 End: 2023 inject 2.5 mg by subcutaneous injection every week tirzepatide (MOUNJARO) 2.5 mg/0.5 mL pen injector Indications: BMI 60.0-69.9, adult (HCC) , S/P bariatric surgery , S/P biliopancreatic diversion with duodenal switch , Prediabetes Inject 2.5 mg subcutaneously one time a week. 2 mL 1 04/19/2024 06/14/2024 Active zinc acetate 25 mg oral capsule (20 sources) Start: 2023 take 1 capsule by mouth once daily [...] on above: Take 1 tablet by claudia three times daily with meals. cefTRIAXone (9 [...] Contrast as designated per enteric contrast guidelines gabapentin 300 mg oral capsule (2 sources) Anti-epileptic Agent Start: 5 End: 2 take 1 capsule by mouth three times daily gabapentin (NEURONTIN) 300 mg capsule Take 300 mg by mouth three times daily. 0 03/03/2015 09/23/2021 Discontinued (Discontinued by another Health Care Provider) Comment on above: Take 300 mg by mouth three times daily. iv contrast (will be provided with radiology test) (2 sources) Start: 2 End: 2 iv contrast (will be provided with radiology [...] Patch as dir ected every 24 hours. 1 ml methylPREDNISolone acetate 40 mg/ml injection (9 sources) Corticosteroid Start : 04-27 End: 04-27 methylPREDNISolone acetate (DEPO-Medrol) injection 40 mg Start: 04-27-2024 End: 04-27-2024 40 mg, Intra-articular, Once PRN Procedure, Starting on Thu04/27/24 at 1154, For 1 dose Start: 04-13-2024 End: 04-13-2024 methylPREDNISolone acetate (DEPO-Medrol) injection 40 mg Start: 04-13-2024 End: 04-13-2024 40 mg, Intra-articular, Once PRN Procedure, Starting on Thu04/13/24 at 1208, For 1 dose Start: 10-08-2015 End: 09-23-2021 take 1 tablet by mouth once methylPREDNISolone (MEDROL , BELÉN,) 4 mg Dose-Pack Take 1 tablet by mouth as directed. As Instructed per package 1 Package 0 10/08/2015 09/23/2021 Discontinued (Discontinued by another Health Care Provider) Comment on above: Take 1 tablet by claudia th as directed. As Instructed per package mometasone furoate 0.001 mg/mg topical ointment (1 source) Corticosteroid Start: 03-09-20 End: 09-24-19 mometasone (ELOCON) 0.1 % ointment Apply 1 application to affected area as needed. 0 03/09/2015 09/23/2021 Discontinued (Discontinued by another Health Care Provider) Comment on above: Apply 1 application to affected area as needed. pantoprazole 40 mg delayed release oral tablet (20 sources) Proton Pump Inhibitor Start: 01-16-20 End: 03-10-20 take 1 tablet by mouth [...] tonsils] Onset: 6 10-04-2015 Chronic Administrative/social admission (8 sources) Patient encounter status; Translations: [Dietary counseling [...] anemia; Translations: [Iron deficiency anemia, unspecified] Episodic Diabetes mellitus without complication (1 source) Prediabetes; Translations: [Prediabetes] 04-19-2024 Episodic Diseases of white blood cells (2 [...] [Migraine with aura, intractable, without status migrainosus] Onset: 4 03-10-2023 Chronic Headache; including migraine (4 sources) Headache; including migraine; Translations: [HEADACHE UNSPECIFIED] Onset: 3 Immunizations and screening for infectious disease (1 source) Viral screening status; Translations: [Encounter for screening for other viral diseases] Episodic Joint disorders and dislocations; trauma-related (4 sources) Derangement of right knee; Translations: [Unspecified internal derangement of right knee] 04-27-2024 Chronic Malaise and fatigue (3 sources) Fatigue; Translations: [Other fatigue] Onset: 3 Episodic Mood disorders (20 sources) Bipolar disorder; [...] [Vitamin D deficiency, unspecified] 11-02-2023 Chronic Osteoarthritis (15 sources) Degenerative joint disease of shoulder region; Translations: [Primary osteoarthritis, right shoulder] 04-12-2024 Chronic Other aftercare (1 source) Other penitentiary (current) drug therapy; Translations: [OTH [facility] CURRENT DRUG THERAPY] Onset: 3 Episodic Other [...] [Other intestinal malabsorption] Chronic Other gastrointestinal disorders (11 sources) Abnormal intestinal absorption; Translations: [Intestinal malabsorption, unspecified] Onset: 4 08-19-2023 Chronic Other gastrointestinal disorders (13 sources) History of sleeve gastrectomy; Translations: [Bariatric surgery status] Onset: 1 Episodic Other gastrointestinal disorders (1 source) Dysphagia; Translations: [Dysphagia, unspecified] Episodic Other gastrointestinal disorders (9 sources) Abdominal bloating; Translations: [Abdominal distension (gaseous)] Episodic Other gastrointestinal disorders (9 sources) Diarrhea; Translations: [Diarrhea, unspecified] Episodic Other gastrointestinal disorders (1 source) Bariatric surgery status; Translations: [BARIATRIC SURGERY STATUS] Onset: 3 Episodic Other injuries and conditions due to external causes (1 source) Other specified injuries of head, initial encounter; Translations: [OTH SPEC INJURIES HEAD INITIAL ENC] Onset: 3 Episodic Other lower respiratory disease (2 sources) Snoring; Translations: [Snoring] Episodic Other lower respiratory disease (1 source) Snoring; Translations: [SNORING] Onset: 3 Episodic Other nervous system disorders (9 sources) Chronic pain; Translations: [Other chronic pain] Chronic Other nervous system disorders (1 source) Other chronic pain; Translations: [OTHER CHRONIC PAIN] Onset: 2 Chronic Other nervous system disorders (1 source) Other acute postprocedural pain; Translations: [Postoperative pain] Onset: 4 Episodic Other non-traumatic joint disorders (2 sources) Arthritis of right knee 04-13-2024 Chronic Other non-traumatic joint disorders (2 sources) Arthritis of left knee 04-27-2024 Chronic Other non-traumatic joint disorders (1 source) Pain in left ankle and joints of left foot Episodic Other non-traumatic joint disorders (1 source) Knee pain Onset: 4 Episodic Other non-traumatic joint disorders (2 sources) Pain in left knee; Translations: [Pain in joint, lower leg] 04-27-2024 Episodic Other non-traumatic joint disorders (2 sources) [...] nutritional; endocrine; and metabolic disorders (4 sources) Severe obesity; Translations: [Morbid (severe) obesity due to excess calories] Chronic Other nutritional; endocrine; and metabolic disorders (2 sources) Body mass index (BMI) 70 or [...] nutritional; endocrine; and metabolic disorders (20 sources) Hypophosphatemia; Translations: [Other disorders of phosphorus [...] nutritional; endocrine; and metabolic disorders (1 source) Abnormal weight gain; Translations: [ABNORMAL WEIGHT GAIN] Onset: 3 Episodic Other skin disorders (9 sources) Hirsutism; [...] APNEA] Onset: 6 Chronic Residual codes; unclassified (1 source) Sleep apnea, unspecified; Translations: [SLEEP APNEA UNSPECIFIED] Onset: 3 Chronic Residual codes; unclassified (18 sources) Sleep apnea; Translations: [Sleep apnea, unspecified] Onset: 4 11-09-2023 Chronic Residual codes; unclassified (9 sources) History [...] initial encounter] Onset: 2 Resolved: 2 Episodic Superficial injury; contusion (2 sources) Contusion of right knee; Translations: [Contusion of right knee, initial encounter] 04-27-2024 Episodic Unclassified (1 source) Other specified postprocedural [...] 01-17-2017 01-17-2017 Episodic Fluid and electrolyte disorders (20 sources) Hypokalemia; Translations: [Hypokalemia] Onset: 08-07-2023 08-07-2023 Episodic Headache; including migraine (2 sources) Headache; Translations: [Intractable episodic headache] Onset: 01-17-2017 01-17-2017 Episodic Neoplasms of unspecified nature or uncertain behavior (20 sources) Thrombocytosis; Translations: [Thrombocytosis] Onset: 03-13-2015 03-13-2015 Episodic Nutritional deficiencies (14 sources) Iron deficiency; Translations: [Iron deficiency] Onset: 11-02-2023 11-02-2023 Episodic Other connective tissue disease (1 source) Pain in left foot Onset: 11-13-2021 Resolved: 11-13-2021 Episodic Other connective tissue disease (18 sources) Muscle pain; Translations: [Myalgia, unspecified site] Onset: 11-09-2023 11-09-2023 Episodic Other connective tissue disease (18 sources) Spasm; Translations: [Other muscle spasm] Onset: 11-09-2023 11-09-2023 Episodic Other disorders of stomach and duodenum (4 sources) Fistula of stomach and duodenum; Translations: [FISTULA OF STOMACH AND DUODENUM] Onset: 04-11-2022 Episodic Other gastrointestinal disorders (20 sources) History of bariatric surgical procedure; Translations: [Bariatric surgery status] Onset: 08-04-2023 Episodic Other nervous system disorders (11 sources) Postoperative pain ; Translations: [Other acute postprocedural pain] Onset: 08-05-2023 08-07-2023 Episodic Other non-traumatic joint disorders (20 sources) Pain in right knee; Translations: [Pain in joint, lower leg] Onset: 01-17-2017 10-13-2023 Episodic Residual codes; unclassified (1 source) Acquired absence of stomach [part of]; Translations: [ACQUIRED ABSENCE OF STOMACH] Onset: 04-14-2022 Episodic Residual codes; unclassified (18 sources) Insomnia; Translations: [Insomnia, unspecified] Onset: 11-09-2023 11-09-2023 Episodic Skin and subcutaneous tissue infections (1 source) Cellulitis of buttock Onset: 10-03-2021 Resolved: 10-03-2021 Episodic Spondylosis; intervertebral disc disorders; other back problems (20 sources) Radiculopathy, lumbar region; Translations: [Chronic low back pain] Onset: 01-06-2017 01-17-2017 Episodic Unclassified (1 source) LOW BACK PAIN, UNSPECIFIED; Translations: [LOW BACK PAIN, UNSPECIFIED] Onset: 04-01-2022 Unclassified (2 sources) Contusion of right knee 04-27-2024 Results Test Name Value Interpretation Reference Range Facility 25(OH)D3 [facility] 2023 25-hydroxyvitami n D3 [Mass/Vol] 33.7 ng/mL Normal 31.0-80.0 [facility] Comment on above: Order Comment: Specimen Type: BLOOD SPEC IMEN Ordering Facility: [facility] Address: [address] [id number] Result Comment: Clas sification of 25 OH Vitamin D status: Deficiency/Insufficiency: < or = 30 ng/ml. Sufficiency/Optimal Levels: 31-80 ng/mL Toxicity: > 100 ng/mL. Test performed by chemiluminescent immunoassay. Performed By: #### 5 8410-2 #### [facility] CLIA [id number] [address] [place] [address]3801 CBC panel Auto (Bld)on 04-29 Erythrocyte distribution width (RBC) [Ratio] 15.5 % High 11.5-15.0 [facility] Comment on above: Order Comment: Specimen Type: BLOOD SPEC IMEN Ordering Facility: [facility] Address: [address] [place], [place] [address] Performed By: #### 5 8410-2 #### [facility] CLIA [id number] [address] [place] [address] 24332 Hematocrit (Bld) [Volume fraction] 43.0 % Normal 36.0-46.0 [facility] Comment on above: Order Comment: Specimen Type: BLOOD SPEC IMEN Ordering Facility: [facility] Address: [address] [place], [place] [address] Performed By: #### 5 8410-2 #### [facility] CLIA [id number] [address] [place] [address] 31789 Hemoglobin (Bld) [Mass/Vol] 13.9 g/dL Normal 11.5-15.5 [facility] Comment on above: Order Comment: Specimen Type: BLOOD SPEC IMEN Ordering Facility: [facility] Address: [address] [place] [address] Performed By: #### 5 8410-2 #### [facility] CLIA [id number] [address] [place] [address] 95008 MCH (RBC) [Entitic mass] 29.2 pg Normal 26.0-34.0 [facility] Comment on above: Order Comment: Specimen Type: BLOOD SPEC IMEN Ordering Facility: [facility] Address: [address] [place] [address] Performed By: #### 5 8410-2 #### [facility] CLIA [id number] [address] [place] [address] 42326 MCHC (RBC) [Mass/Vol] 32.3 g/dL Normal 30.5-36.0 [facility] Comment on above: Order Comment: Specimen Type: BLOOD SPEC IMEN Ordering Facility: [facility] Address: [address] [place] [address] Performed By: #### 5 8410-2 #### [facility] CLIA [id number] [address] [place] [address] 17903 MCV (RBC) [Entitic vol] 90.3 fL Normal 80.0-100.0 [facility] Comment on above: Order Comment: Specimen Type: BLOOD SPEC IMEN Ordering Facility: [facility] Address: [address] [place] [address] Performed By: #### 5 8410-2 #### [facility] CLIA [id number] [address] [place] [address] 56144 Nucleated RBC (Bld) [#/Vol] 10*3/uL Normal <0.01 [facility] Comment on above: Order Comment: Specimen Type: BLOOD SPEC IMEN Ordering Facility: [facility] Address: [address] [place] [address] Performed By: #### 5 8410-2 #### [facility] CLIA [id number] [address] [place] [address] 44107 Platelet mean volume (Bld) [Entitic vol] 9.5 fL Normal 9.0-12.7 [facility] Comment on above: Order Comment: Specimen Type: BLOOD SPEC IMEN Ordering Facility: [facility] Address: [address] [place] [address] Performed By: #### 5 8410-2 #### [facility] CLIA [id number] [address] [place] [address] 11163 Platelets (Bld) [#/Vol] 312 10*3/uL Normal 150-400 [facility] Comment on above: Order Comment: Specimen Type: BLOOD SPEC IMEN Ordering Facility: [facility] Address: [address] [place] [address] Performed By: #### 5 8410-2 #### [facility] CLIA [id number] [address] [place] [address] RBC (Bld) [#/Vol] 4.76 10*6/uL Normal 3.90-5.20 [facility] Comment on above: Order Comment: Specimen Type: BLOOD SPEC IMEN Ordering Facility: [facility] Address: [address] [place] [address] Performed By: #### 5 8410-2 #### [facility] CLIA [id number] [address] [place] [address] 21660 WBC (Bld) [#/Vol] 17.40 10*3/uL High 3.70-11.00 [facility] Comment on above: Order Comment: Specimen Type: BLOOD SPEC IMEN Ordering Facility: [facility] Address: [address] [place] [address] Performed By: #### 5 8410-2 #### [facility] CLIA [id number] [address] [place] [address] 03896 Comprehensive metabolic 2000 panelon 04-29-2024 Albumin [Mass/Vol] 4.0 g/dL Normal 3.9-4.9 [facility] Comment on above: Order Comment: Specimen Type: BLOOD SPEC IMEN Ordering Facility: [facility] Address: [address] [place] [address] Performed By: #### 5 8410-2 #### [facility] CLIA [id number] [address] [place] [address] 16967 ALP [Catalytic activity/Vol] 111 U/L Normal 34-123 [facility] Comment on above: Order Comment: Specimen Type: BLOOD SPEC IMEN Ordering Facility: [facility] Address: [address] [place] [address] Performed By: #### 5 8410-2 #### [facility] CLIA [id number] [address] [place] [address] ALT [Catalytic activity/Vol] 22 U/L Normal 7-38 [facility] Comment on above: Order Comment: Specimen Type: BLOOD SPEC IMEN Ordering Facility: [facility] Address: [address] [place] [address] Performed By: #### 5 8410-2 #### [facility] CLIA [id number] [address] [place] [address] 87232 Anion gap [Moles/Vol] 11 mmol/L Normal 8-15 [facility] Comment on above: Order Comment: Specimen Type: BLOOD SPEC IMEN Ordering Facility: [facility] Address: [address] [id number] Performed By: #### 5 8410-2 #### [facility] CLIA [id number] [address] [place] [address] 26741 AST [Catalytic activity/Vol] 17 U/L Normal 13-35 [facility] Comment on above: Order Comment: Specimen Type: BLOOD SPEC IMEN Ordering Facility: [facility] Address: [address] [id number] Performed By: #### 5 8410-2 #### [facility] CLIA [id number] [address] [place] [address] 65259 Bilirubin [Mass/Vol] 0.2 mg/dL Normal 0.2-1.3 [facility] Comment on above: Order Comment: Specimen Type: BLOOD SPEC IMEN Ordering Facility: [facility] Address: [address] [place] [address] Performed By: #### 5 8410-2 #### [facility] CLIA [id number] [address] [place] [address] 51579 Calcium [Mass/Vol] 9.3 mg/dL Normal 8.5-10.2 [facility] Comment on above: Order Comment: Specimen Type: BLOOD SPEC IMEN Ordering Facility: [facility] Address: [address] [id number] Performed By: #### 5 8410-2 #### [facility] CLIA [id number] [address] [place] [address] Chloride [Moles/Vol] 103 mmol/L Normal 98-107 [facility] Comment on above: Order Comment: Specimen Type: BLOOD SPEC IMEN Ordering Facility: [facility] Address: [address] [place] [address] Performed By: #### 5 8410-2 #### [facility] CLIA [id number] [address] [place] [address] 15096 CO2 [Moles/Vol] 24 mmol/L Normal 22-30 [facility] Comment on above: Order Comment: Specimen Type: BLOOD SPEC IMEN Ordering Facility: [facility] Address: [address] [place] [address] Performed By: #### 5 8410-2 #### [facility] CLIA [id number] [address] [place] [address] 59753 Creatinine [Mass/Vol] 0.67 mg/dL Normal 0.58-0.96 [facility] Comment on above: Order Comment: Specimen Type: BLOOD SPEC IMEN Ordering Facility: [facility] Address: [address] [place] [address] Performed By: #### 5 8410-2 #### [facility] CLIA [id number] [address] [place] [address] 23328 Creatinine and Glomerular filtration rate.predicted panel (S/P/Bld) 115 mL/min/1.73m??? Normal >=60 [facility] Comment on above: Order Comment: Specimen Type: BLOOD SPEC IMEN Ordering Facility: [facility] Address: [address] [place] [address] Result Comment: Janet mated Glomerular Filtration Rate [...] accurately reflect actual GFR. Performed By: #### 5 8410-2 #### [facility] CLIA [id number] [address] [place] [address] 76080 Glucose [Mass/Vol] 114 mg/dL High 74-99 [facility] Comment on above: Order Comment: Specimen Type: BLOOD SPEC IMEN Ordering Facility: [facility] Address: [address] [place] [address] Result Comment: The [place] Diabetes Association (ADA) provides guidance for cutoff [...] Standards of Medical Care in Diabetes 2016, [place] Diabetes Association. Diabetes Care. 2016.39(Suppl 1). Performed By: #### 5 8410-2 #### [facility] CLIA [id number] [address] [place] [address]2237 Potassium [Moles/Vol] 4.2 mmol/L Normal 3.7-5.1 [facility] Comment on above: Order Comment: Specimen Type: BLOOD SPEC IMEN Ordering Facility: [facility] Address: [address] [place] [address] Performed By: #### 5 8410-2 #### [facility] CLIA [id number] [address] [place] [address] 20782 Protein [Mass/Vol] 7.5 g/dL Normal 6.3-8.0 [facility] Comment on above: Order Comment: Specimen Type: BLOOD SPEC IMEN Ordering Facility: [facility] Address: [address] [place] [address] Performed By: #### 5 8410-2 #### [facility] CLIA [id number] [address] [id number] Sodium [Moles/Vol] 138 mmol/L Normal 136-144 [facility] Comment on above: Order Comment: Specimen Type: BLOOD SPEC IMEN Ordering Facility: [facility] Address: [address] [place] [address] Performed By: #### 5 8410-2 #### [facility] CLIA [id number] [address] [place], [place] [address] Urea nitrogen [Mass/Vol] 10 mg/dL Normal 7-21 [facility] Comment on above: Order Comment: Specimen Type: BLOOD SPEC IMEN Ordering Facility: [facility] Address: [address] [place] [address] Performed By: #### 5 8410-2 #### [facility] CLIA [id number] [address] [place], [place] [address] Folate SerPl-ncon 04-29-20 24 Folate [Mass/Vol] ng/mL Normal >4.7 [facility] Comment on above: Order Comment: Specimen Type: BLOOD SPEC IMENOrdering Facility: [facility] Address: [address] [place] [address] Result Comment: A re sult of > 20 ng/mL is not necessarily indicative of a pathologic or treatable condition: it reflects a limitation of the test methodology. Assay reference range: 4.8 to 24.2 ng/mL. Suitable for detection of folate deficiency. Reference: Folate III (Folate III) [package insert V 1.0 Chinese]. [facility], [place], [place]: April 2015. Performed By: #### 2 731-8, 2284-8, 2132-9 ####[facility] [id number] [place] [address] [place] HbA1c (Bld)on 04-29-2024 Average glucose Estimated from glycated hemoglobin (Bld) [Mass/Vol] 137 mg/dL Normal [facility] Comment on above: Order Comment: Specimen Type: BLOOD SPEC IMEN Ordering Facility: [facility] Address: [address] [place] [address] Result Comment: eAG: (Estimated average glucose) is a calculated value from HgbA1c and is parts counter representative of the average blood glucose level in the last 2-3 month period. Performed By: #### 2 276-4, 48157-1 #### [facility] CLIA [id number] [address] [place] [address] [place] HbA1c (Bld) [Mass fraction] 6.4 % High 4.3-5.6 [facility] Comment on above: Order Comment: Specimen Type: BLOOD SPEC IMEN Ordering Facility: [facility] Address: [address] [place] [address] Result Comment: [place] Diabetes Association guidelines indicate that patients with HgbA1c in the range 5.7-6.4% are at increased risk for development of diabetes, and intervention by lifestyle modification may be beneficial. HgbA1c greater or equal to 6.5% is considered diagnostic of diabetes. Performed By: #### 2 276-4, 96708-2 #### [facility] CLIA [id number] [address] [place] [address] [place] Iron and Iron binding capaci ty panelon 04-29-2024 Iron [Mass/Vol] 53 ug/dL Normal 41-186 [facility] Comment on above: Order Comment: Specimen Type: BLOOD SPEC IMENOrdering Facility: [facility] Address: [address] [place] [address] Performed By: #### 3 016-3, 92294-6 ####[facility] [id number] [place] [address] [place] Iron binding capacity [Mass/Vol] 366 ug/dL Normal 232-386 [facility] Comment on above: Order Comment: Specimen Type: BLOOD SPEC IMENOrdering Facility: [facility] Address: [address] [place] [address] Performed By: #### 3 016-3, 08126-4 ####[facility] [id number] [place] [id number] [place] Iron/TIBC [Molar ratio] 14.5 % Low 15.0-57.0 [facility] Comment on above: Order Comment: Specimen Type: BLOOD SPEC IMENOrdering Facility: [facility] Address: [address] [place] [address] Performed By: #### 3 016-3, 57730-3 ####[facility] [id number] [place] [id number] [place] PTH-Intact SerPl-mCncon 11-0 Parathyrin.intac t [Mass/Vol] 38 pg/mL Normal 15-65 [facility] Comment on above: Order Comment: Specimen Type: BLOOD SPEC IMENOrdering Facility: [facility] Address: [address] [place] [address] Performed By: #### 2 731-8, 2284-8, 2132-9 ####[facility] [id number] [place] [address] [place] TSH SerPl-aCncon 04-29-2024 TSH Qn 2.600 m[IU]/L Normal 0.270-4.20 0 [facility] Comment on above: Order Comment: Specimen Type: BLOOD SPEC IMENOrdering Facility: [facility] Address: [address] [place] [address] Result Comment: If t he patient is , TSH reference range varies by gestational period: First Trimester (weeks 9-12): 0.180-2.990 mIU/L Second Trimester: 0.110-3.980 mIU/L Third Trimester: 0.480-4.710 mIU/L Jacoby Rush et al. A Practical Approach for the Verifications and Determination of Site- and Trimester-Specific Reference Intervals for Thyroid Function tests in . Thyroid, 2019:29:3:412-420. Amos E, et al. 2017 Guidelines of the [place] Thyroid Association for the Diagnosis and Management of Thyroid Disease during and the . Thyroid, 2017:27:3:315-389. Performed By: #### 3 016-3, 81317-1 ####[facility] [id number] [place] [address] [place] VITAMIN B1 (THIAMINE), WHOLE BLOODon 04-29-2024 Thiamine (Bld) [Moles/Vol] 283.0 nmol/L High 84.3-213.3 [facility] Comment on above: Order Comment: Specimen Type: BLOOD SPEC IMEN Ordering Facility: [facility] Address: [address] [place] [address] Result Comment: This assay measures the concentration of thiamine diphosphate (TDP), the primary active form of vitamin B1. Approximately 90 percent of vitamin B1 present in whole blood is TDP. Thiamine and thiamine monophosphate, which comprise the remaining 10 percent, are not measured. This test was developed, and its performance characteristics determined by the [facility] Department of Pathology and Laboratory Medicine. It has not been cleared or approved by the FDA. The [facility] Department of Pathology and Laboratory Medicine is regulated under CLIA as qualified to perform high-complexity testing. This test is used for clinical purposes. It should not be regarded as investigational or for research. Performed By: #### 2 276-4, 20928-9 #### [facility] CLIA [id number] [address] [place] [address] [place] Vit A SerPl-mCncon 4 Retinol [Mass/Vol] 0.43 mg/L Normal 0.30-1.20 [facility] Comment on above: Order Comment: Specimen Type: BLOOD SPEC IMEN Ordering Facility: [facility] Address: [address] [place] [address] Result Comment: This test was developed and its performance characteristics determined by [facility]. It has not been cleared or approved by the [place] Food and Drug Administration. This test was performed in a CLIA certified laboratory and is intended for clinical purposes. Performed By: #### 2 276-4, 25220-6 #### [facility] CLIA [id number] [address] [place] [address] [place] Vit B12 [facility] Cobalamin (Vitamin B12) [Mass/Vol] 911 pg/mL Normal 232-1245 [facility] Comment on above: Order Comment: Specimen Type: BLOOD SPEC IMENOrdering Facility: [facility] Address: [address] [place] [address] Performed By: #### 2 731-8, 2284-8, 2132-9 ####[facility] LABCLIA [id number] [place] [address] [place] Zinc [facility]2024 Zinc [Mass/Vol] 47 ug/dL Low 60-120 [facility] Comment on above: Order Comment: Specimen Type: BLOOD SPEC IMEN Ordering Facility: [facility] Address: [address] [place] [address] Result Comment: This test was developed, and its performance characteristics determined by the [facility] Department of Pathology and Laboratory Medicine. It has not been cleared or approved by the FDA. The [facility] Department of Pathology and Laboratory Medicine is regulated under CLIA as qualified to perform high-complexity testing. This test is used for clinical purposes. It should not be regarded as investigational or for research. Performed By: #### 2 276-4, 38726-8 #### [facility] CLIA [id number] [address] [place] [address] [place] No Panel Informationon 04-27 Bushra Nevarez NP 1 11:56 AM L Inj/Asp: L knee on 04/27/2024 11:54 AM Indications: pain Details: 20 G needle, anterolateral approach Medications: 40 mg methylPREDNISolone acetate 40 MG/ML UTILIZING ASEPTIC TECHNIQUE PT GIVEN INJECTION IN LEFT KNEE, NEUROVASC INTACT S/P INJ, TOLERATED WELL Procedure, treatment alternatives, risks and benefits explained, specific risks discussed. Consent was given by the patient. [facility] No Panel Informationon 04-13 Bushra Nevarez NP 1 12:09 PM L Inj/Asp: R knee on 04/13/2024 12:08 PM Indications: pain Details: 20 G needle, anterolateral approach Medications: 40 mg methylPREDNISolone acetate 40 MG/ML UTILIZING ASEPTIC TECHNIQUE PT GIVEN INJECTION IN RIGHT KNEE, NEUROVASC INTACT S/P INJ, TOLERATED WELL Procedure, treatment alternatives, risks and benefits explained, specific risks discussed. Consent was given by the patient. [facility] XR KNEE RT 3 VWSon 4 XR KNEE RT 3 VWS XR KNEE RT 3 VWS XR KNEE RT 3 VWS CLINICAL HISTORY: Right knee pain COMPARISON: None. FINDINGS: 3 views are obtained. Soft tissues: Unremarkable. Osseous structures: No acute fracture. No destructive osseous lesion. Joints: No dislocation or malalignment. Mild joint space narrowing in the medial weightbearing compartment. Spiking of the tibial spine and mild spurring in the lateral tibial plateau, femoral condyle and patellar articular surface. IMPRESSION: * No acute fracture or malalignment. * Tricompartment mild degenerative knee arthritis. Finalized by Dione Hardy MD on 04/06/2024 1:14 PM Normal [facility] HCG ( test) Ql (U)o n 12-02-2023 Beta HCG ( test) Ql (U) Negative Normal NEG [facility] Comment on above: Performed By: #### 2106-3 #### [facility] ([id number]) [address] [place] [address], [place] [address] VITAMIN John 11-27-2023 VITAMIN K 0.75 nmol/L Normal 0.22-4.88 [facility] Comment on above: Order Comment: Specimen Type: BLOOD SPEC IMENOrdering Facility: [facility] Address: [address] [place] [address] Result Comment: INTE RPRETIVE INFORMATION: Vitamin K1, Serum Vitamin K concentration is reported as nanomoles per liter (nmol/L). To convert concentration to nanograms per milliliter (ng/mL), multiply the result by 0.45. This test was developed and its performance characteristics determined by [facility]. It has not been cleared or approved by the US Food and Drug Administration. This test was performed in a CLIA certified laboratory and is intended for clinical purposes. Performed By: [facility] [address] [place] [address] Associate Embalmer/Funeral Director: John Newsome MD, PhD CLIA Number: [id number] Performed By: #### V ITK ####[facility] [id number] [place] [address] HCG ( test) Ql (U)o n 11-04-2023 Beta HCG ( test) Ql (U) Negative Normal NEG [facility] Comment on above: Performed By: #### 2106-3 #### [facility] ([id number]) [address] [place] [address], [place] [address] 25(OH)D3 [facility] 25-hydroxyvitami n D3 [Mass/Vol] 29.3 ng/mL Low 31.0-80.0 [facility] Comment on above: Order Comment: Specimen Type: BLOOD SPEC IMEN Ordering Facility: [facility] Address: [address] [place] [address] Performed By: #### 2 276-4, 87731-8 #### [facility] CLIA [id number] [address] [place] [address] [place] A-Tocopherol Vit E [facility]-mCn con 10-28-2023 Alpha tocopherol [Mass/Vol] 7.0 mg/L Normal 6.0-23.0 [facility] Comment on above: Order Comment: Specimen Type: BLOOD SPEC IMENOrdering Facility: [facility] Address: [address] [place] [address] Performed By: #### 1 823-4, 2923-1 ####[facility] LABCLIA [id number] [place] [address] [place] Alpha tocopherol [Mass/Vol]o n 10-28-2023 Beta+gamma tocopherol [Mass/Vol] 0.7 mg/L Normal 0.3-3.2 [facility] Comment on above: Order Comment: Specimen Type: BLOOD SPEC IMENOrdering Facility: [facility] Address: [address] [place] [address] Result Comment: This test was developed and its performance characteristics determined by [facility] [place] ([facility]). It has not been cleared or approved by the FDA. [facility] is regulated under CLIA as qualified to perform high-complexity testing. This test is used for clinical purposes. It should not be regarded as investigational or for research. Performed By: #### 1 823-4, 2923-1 ####[facility] LABCLIA [id number] [address] OF [facility] CBC panel Auto (Bld)on 10-27 Erythrocyte distribution width (RBC) [Ratio] 14.3 % Normal 11.5-15.0 [facility] Comment on above: Order Comment: Specimen Type: BLOOD SPEC IMENOrdering Facility: [facility] Address: [address] [place] [address] Performed By: #### 5 8410-2 ####[facility] LABCLIA [id number] [place] [address] Hematocrit (Bld) [Volume fraction] 43.5 % Normal 36.0-46.0 [facility] Comment on above: Order Comment: Specimen Type: BLOOD SPEC IMENOrdering Facility: [facility] Address: [address] [place] [address] Performed By: #### 5 8410-2 ####[facility] LABCLIA [id number] [place] [address] Hemoglobin (Bld) [Mass/Vol] 13.6 g/dL Normal 11.5-15.5 [facility] Comment on above: Order Comment: Specimen Type: BLOOD SPEC IMENOrdering Facility: [facility] Address: [address] [place] [address] Performed By: #### 5 8410-2 ####[facility] LABCLIA [id number] [place] [address] MCH (RBC) [Entitic mass] 27.5 pg Normal 26.0-34.0 [facility] Comment on above: Order Comment: Specimen Type: BLOOD SPEC IMENOrdering Facility: [facility] Address: [address] [place] [address] Performed By: #### 5 8410-2 ####[facility] LABCLIA [id number] [place] [address] MCHC (RBC) [Mass/Vol] 31.3 g/dL Normal 30.5-36.0 [facility] Comment on above: Order Comment: Specimen Type: BLOOD SPEC IMENOrdering Facility: [facility] Address: [address] [place] [address] Performed By: #### 5 8410-2 ####[facility] LABIA [id number] [place] [address] MCV (RBC) [Entitic vol] 88.1 fL Normal 80.0-100.0 [facility] Comment on above: Order Comment: Specimen Type: BLOOD SPEC IMENOrdering Facility: [facility] Address: [address] [place] [address] Performed By: #### 5 8410-2 ####[facility] LABIA [id number] [place] [address] Nucleated RBC (Bld) [#/Vol] 10*3/uL Normal <0.01 [facility] Comment on above: Order Comment: Specimen Type: BLOOD SPEC IMENOrdering Facility: [facility] Address: [address] [place] [address] Performed By: #### 5 8410-2 ####[facility] LABIA [id number] [place] [address] Platelet mean volume (Bld) [Entitic vol] 8.8 fL Low 9.0-12.7 [facility] Comment on above: Order Comment: Specimen Type: BLOOD SPEC IMENOrdering Facility: [facility] Address: [address] [place] [address] Performed By: #### 5 8410-2 ####[facility] LABCLIA [id number] [place] [address] Platelets (Bld) [#/Vol] 722 10*3/uL High 150-400 [facility] Comment on above: Order Comment: Specimen Type: BLOOD SPEC IMENOrdering Facility: [facility] Address: [address] [place] [address] Performed By: #### 5 8410-2 ####[facility] LABCLIA [id number] [place] [address] RBC (Bld) [#/Vol] 4.94 10*6/uL Normal 3.90-5.20 [facility] Comment on above: Order Comment: Specimen Type: BLOOD SPEC IMENOrdering Facility: [facility] Address: [address] [place] [address] Performed By: #### 5 8410-2 ####[facility] LABCLIA [id number] [place] [address] WBC (Bld) [#/Vol] 14.70 10*3/uL High 3.70-11.00 [facility] Comment on above: Order Comment: Specimen Type: BLOOD SPEC IMENOrdering Facility: [facility] Address: [address] [place] [address] Performed By: #### 5 8410-2 ####[facility] LABCLIA [id number] [place] [address] Comprehensive metabolic 2000 panelon 10-28-2023 Albumin [Mass/Vol] 4.2 g/dL Normal 3.9-4.9 [facility] Comment on above: Order Comment: Specimen Type: BLOOD SPEC IMEN Ordering Facility: [facility] Address: [address] [place] [address] Performed By: #### 5 8410-2 #### [facility] CLIA [id number] [address] [place] [address] ALP [Catalytic activity/Vol] 137 U/L High 34-123 [facility] Comment on above: Order Comment: Specimen Type: BLOOD SPEC IMEN Ordering Facility: [facility] Address: [address] [place] [address] Performed By: #### 5 8410-2 #### [facility] CLIA [id number] [address] [place] [address] ALT [Catalytic activity/Vol] 37 U/L Normal 7-38 [facility] Comment on above: Order Comment: Specimen Type: BLOOD SPEC IMEN Ordering Facility: [facility] Address: [address] [place] [address] Performed By: #### 5 8410-2 #### [facility] CLIA [id number] [address] [place] [address] Anion gap [Moles/Vol] 10 mmol/L Normal 9-18 [facility] Comment on above: Order Comment: Specimen Type: BLOOD SPEC IMEN Ordering Facility: [facility] Address: [address] [place] [address] Performed By: #### 5 8410-2 #### [facility] CLIA [id number] [address] [place] [address] AST [Catalytic activity/Vol] 25 U/L Normal 13-35 [facility] Comment on above: Order Comment: Specimen Type: BLOOD SPEC IMEN Ordering Facility: [facility] Address: [address] [place] [address] Performed By: #### 5 8410-2 #### [facility] CLIA [id number] [address] [place] [address] Bilirubin [Mass/Vol] mg/dL Low 0.2-1.3 [facility] Comment on above: Order Comment: Specimen Type: BLOOD SPEC IMEN Ordering Facility: [facility] Address: [address] [place] [address] Performed By: #### 5 8410-2 #### [facility] CLIA [id number] [address] [place] [address] Calcium [Mass/Vol] 9.5 mg/dL Normal 8.5-10.2 [facility] Comment on above: Order Comment: Specimen Type: BLOOD SPEC IMEN Ordering Facility: [facility] Address: [address] [place] [address] Performed By: #### 5 8410-2 #### [facility] CLIA [id number] [address] [place] [address] Chloride [Moles/Vol] 101 mmol/L Normal 97-105 [facility] Comment on above: Order Comment: Specimen Type: BLOOD SPEC IMEN Ordering Facility: [facility] Address: [address] [place] [address] Performed By: #### 5 8410-2 #### [facility] CLIA [id number] [address] [place] [address] CO2 [Moles/Vol] 26 mmol/L Normal 22-30 [facility] Comment on above: Order Comment: Specimen Type: BLOOD SPEC IMEN Ordering Facility: [facility] Address: [address] [place] [address] Performed By: #### 5 8410-2 #### [facility] CLIA [id number] [address] [place] [address] Creatinine [Mass/Vol] 0.76 mg/dL Normal 0.58-0.96 [facility] Comment on above: Order Comment: Specimen Type: BLOOD SPEC IMEN Ordering Facility: [facility] Address: [address] [place] [address] Performed By: #### 5 8410-2 #### [facility] CLIA [id number] [address] [place] [address] Creatinine and Glomerular filtration rate.predicted panel (S/P/Bld) 103 mL/min/1.73m??? Normal >=60 [facility] Comment on above: Order Comment: Specimen Type: BLOOD SPEC IMEN Ordering Facility: [facility] Address: [address] [place] [address] Result Comment: Janet mated Glomerular Filtration Rate [...] accurately reflect actual GFR. Performed By: #### 5 8410-2 #### [facility] CLIA [id number] [address] [place] [address] Glucose [Mass/Vol] 155 mg/dL High 74-99 [facility] Comment on above: Order Comment: Specimen Type: BLOOD SPEC IMEN Ordering Facility: [facility] Address: [address] [place] [address] Result Comment: The [place] Diabetes Association (ADA) provides guidance for cutoff [...] Standards of Medical Care in Diabetes 2016, [place] Diabetes Association. Diabetes Care. 2016.39(Suppl 1). Performed By: #### 5 8410-2 #### [facility] CLIA [id number] [address] [place] [address] Potassium [Moles/Vol] 3.7 mmol/L Normal 3.7-5.1 [facility] Comment on above: Order Comment: Specimen Type: BLOOD SPEC IMEN Ordering Facility: [facility] Address: [address] [place] [address] Performed By: #### 5 8410-2 #### [facility] CLIA [id number] [address] [place] [address] Protein [Mass/Vol] 7.9 g/dL Normal 6.3-8.0 [facility] Comment on above: Order Comment: Specimen Type: BLOOD SPEC IMEN Ordering Facility: [facility] Address: [address] [place] [address] Performed By: #### 5 8410-2 #### [facility] CLIA [id number] [address] [place] [address] Sodium [Moles/Vol] 137 mmol/L Normal 136-144 [facility] Comment on above: Order Comment: Specimen Type: BLOOD SPEC IMEN Ordering Facility: [facility] Address: [address] [place] [address] Performed By: #### 5 8410-2 #### [facility] CLIA [id number] [address] [place] [address] Urea nitrogen [Mass/Vol] 11 mg/dL Normal 7-21 [facility] Comment on above: Order Comment: Specimen Type: BLOOD SPEC IMEN Ordering Facility: [facility] Address: [address] [place] [address] Performed By: #### 5 8410-2 #### [facility] CLIA [id number] [address] [place] [address] Ferritin SerPl-mCncon 2023 Ferritin [Mass/Vol] 50.4 ng/mL Normal 14.7-205.1 [facility] Comment on above: Order Comment: Specimen Type: BLOOD SPEC IMEN Ordering Facility: [facility] Address: [address] [place] [address] Performed By: #### 2 276-4, 70411-3 #### [facility] CLIA [id number] [address] [place] [id number] [place] [address] [place] Folate SerPl-mCncon 10-28-19 24 Folate [Mass/Vol] 15.7 ng/mL Normal >4.7 [facility] Comment on above: Order Comment: Specimen Type: BLOOD SPEC IMENOrdering Facility: [facility] Address: [address] [place] [address] Performed By: #### 2 284-8, 2731-8, 2132-9 ####[facility] LABCLIA [id number] [place] [address] [place] HbA1c (Bld)on 10-28-2023 Average glucose Estimated from glycated hemoglobin (Bld) [Mass/Vol] 128 mg/dL Normal [facility] Comment on above: Order Comment: Specimen Type: BLOOD SPEC IMENOrdering Facility: [facility] Address: [address] [place] [address] Result Comment: eAG: (Estimated average glucose) is a calculated value from HgbA1c and is parts counter representative of the average blood glucose level in the last 2-3 month period. Performed By: #### 5 5454-3 ####[facility] LABCLIA [id number] [place] [address] [place] HbA1c (Bld) [Mass fraction] 6.1 % High 4.3-5.6 [facility] Comment on above: Order Comment: Specimen Type: BLOOD SPEC IMENOrdering Facility: [facility] Address: [address] [place] [address] Result Comment: [place] Diabetes Association guidelines indicate that patients with HgbA1c in the range 5.7-6.4% are at increased risk for development of diabetes, and intervention by lifestyle modification may be beneficial. HgbA1c greater or equal to 6.5% is considered diagnostic of diabetes. Performed By: #### 5 5454-3 ####[facility] LABCLIA [id number] [place] [address] [place] Iron and Iron binding capaci ty panelon 10-28-2023 Iron [Mass/Vol] 29 ug/dL Low 41-186 [facility] Comment on above: Order Comment: Specimen Type: BLOOD SPEC IMEN Ordering Facility: [facility] Address: [address] [place] [address] Performed By: #### 2 276-4, 26145-2 #### [facility] CLIA [id number] [address] [place] [address] [place] Iron binding capacity [Mass/Vol] 369 ug/dL Normal 232-386 [facility] Comment on above: Order Comment: Specimen Type: BLOOD SPEC IMEN Ordering Facility: [facility] Address: [address] [place] [address] Performed By: #### 2 276-4, 29292-1 #### [facility] CLIA [id number] [address] [place] [address] [place] Iron/TIBC [Molar ratio] 7.9 % Low 15.0-57.0 [facility] Comment on above: Order Comment: Specimen Type: BLOOD SPEC IMEN Ordering Facility: [facility] Address: [address] [place] [address] Performed By: #### 2 276-4, 16608-0 #### [facility] CLIA [id number] [address] [place] [address] [place] PTH-Intact SerPl-ncon 05-0 Parathyrin.intac t [Mass/Vol] 60 pg/mL Normal 15-65 [facility] Comment on above: Order Comment: Specimen Type: BLOOD SPEC IMENOrdering Facility: [facility] Address: [address] [place] [address] Performed By: #### 2 284-8, 2731-8, 2132-9 ####[facility] LABCLIA [id number] [place] [address] [place] VITAMIN B1 (THIAMINE), WHOLE BLOODon 10-28-2023 Thiamine (Bld) [Moles/Vol] 289.8 nmol/L High 84.3-213.3 [facility] Comment on above: Order Comment: Specimen Type: BLOOD SPEC IMENOrdering Facility: [facility] Address: [address] [place] [address] Result Comment: This assay measures the concentration of thiamine diphosphate (TDP), the primary active form of vitamin B1. Approximately 90 percent of vitamin B1 present in whole blood is TDP. Thiamine and thiamine monophosphate, which comprise the remaining 10 percent, are not measured. This test was developed and its performance characteristics determined by [facility] Pathology and Laboratory Medicine [place] ([facility]). It has not been cleared or approved by the FDA. [facility] is regulated under CLIA as qualified to perform high-complexity testing. This test is used for clinical purposes. It should not be regarded as investigational or for research. Performed By: #### B 1WB ####[facility] LABCLIA [id number] [facility] [id number] [address] [place] VITAMIN John 10-28-2023 VITAMIN K 6.74 nmol/L High 0.22-4.88 [facility] Comment on above: Order Comment: Specimen Type: BLOOD SPEC IMEN [facility]ing Facility: [facility] Address: [address] [place] [address] Result Comment: Elevated vitamin K concentration may be associated with increased lipid concentration. INTERPRETIVE INFORMATION: Vitamin K1, Serum Vitamin K concentration is reported as nanomoles per liter (nmol/L). To convert concentration to nanograms per milliliter (ng/mL), multiply the result by 0.45. This test was developed and its performance characteristics determined by [facility]. It has not been cleared or approved by the US Food and Drug Administration. This test was performed in a CLIA certified laboratory and is intended for clinical purposes. Performed By: [facility] [address] [place] [address] Associate Embalmer/Funeral Director: John Newsome MD, PhD CLIA Number: [id number] Performed By: #### 5 8410-2 #### [facility] CLIA [id number] [address] [place] [id number] Vit A SerPl-mCncon 4 Retinol [Mass/Vol] 0.37 mg/L Normal 0.30-1.20 [facility] Comment on above: Order Comment: Specimen Type: BLOOD SPEC IMENOrdering Facility: [facility] Address: [address] [place] [address] Result Comment: This test was developed and its performance characteristics determined by [facility] Pathology and Laboratory Medicine [place] ([facility]). It has not been cleared or approved by the FDA. [facility] is regulated under CLIA as qualified to perform high-complexity testing. This test is used for clinical purposes. It should not be regarded as investigational or for research. Performed By: #### 1 823-4, 2923-1 ####[facility] LABCLIA [id number] [place] [address] [place] Vit B12 SerPl-ncon 024 Cobalamin (Vitamin B12) [Mass/Vol] 817 pg/mL Normal 232-1245 [facility] Comment on above: Order Comment: Specimen Type: BLOOD SPEC IMENOrdering Facility: [facility] Address: [address] [place] [address] Performed By: #### 2 284-8, 2731-8, 2132-9 ####[facility] LABCLIA [id number] [address] [place] Zinc SerPl-mCncon 10-28-2023 Zinc [Mass/Vol] 45 ug/dL Low 60-120 [facility] Comment on above: Order Comment: Specimen Type: BLOOD SPEC IMEN [facility] Address: [address] [place] [address] Result Comment: This test was developed and its performance characteristics determined by [facility] [place] ([facility]). It has not been cleared or approved by the FDA. [facility] is regulated under CLIA as qualified to perform high-complexity testing. This test is used for clinical purposes. It should not be regarded as investigational or for research. Performed By: #### 2 276-4, 61115-6 #### [facility] CLIA [id number] [address] [place] [address] [place] BASIC METABOLIC PANLon 10-19 Anion gap [Moles/Vol] 12 mmol/L Normal 5-[address] [facility] Comment on above: Performed By: #### BMP #### [facility] ([id number]) [address], [address] [place] [address] Calcium [Mass/Vol] 9.7 mg/dL Normal 8.5-10.[address] [facility] Comment on above: Performed By: #### BMP #### [facility] ([id number]) [address], [address] [place] [address] Chloride [Moles/Vol] 100 mmol/L Normal 98-[address] [facility] Comment on above: Performed By: #### BMP #### [facility] ([id number]) [address], [address] [place] [address] CO2 [Moles/Vol] 25 mmol/L Normal 22-[address] [facility] Comment on above: Performed By: #### BMP #### [facility] ([id number]) [address], [address] [place] [address] Creatinine [Mass/Vol] 0.72 mg/dL Normal 0.40-1.[address] [facility] Comment on above: Result Comment: METHOD TRACEABLE TO IDMS STANDARD Performed By: #### B MP #### [facility] ([id number]) [address], [address] [place] [address] eGFR (CKD-EPI) NON-RACE DEPENDENT >90 Normal >[address] [facility] Comment on above: Result Comment: Reported eGFR is based on the CKD-EPI 1 equation that does not use a race coefficient. Performed By: #### B MP #### [facility] ([id number]) [address], [address] [place] [address] Glucose [Mass/Vol] 89 mg/dL Normal 65-[address] [facility] Comment on above: Performed By: #### BMP #### [facility] ([id number]) [address], [address] [place] [address] Potassium [Moles/Vol] 4.0 mmol/L Normal 3.5-5.[address] [facility] Comment on above: Performed By: #### BMP #### [facility] ([id number]) [address], [address] [place] [address] Sodium [Moles/Vol] 137 mmol/L Normal 134-[address] [facility] Comment on above: Performed By: #### BMP #### [facility] ([id number]) [address], [address] [place] [address] Urea nitrogen [Mass/Vol] 18 mg/dL Normal 5-[address] [facility] Comment on above: Performed By: #### BMP #### [facility] ([id number]) [address], [address] [place] [address] CNOVon 09-07-2023 CNOV Office Visit (BMINO) SUSI ORTIZ ([id number]) 1985 F FNS Date Time Provider Department 09/07/23 9:30 AM JAYSHREE HUFFMAN During your visit today, we recorded the following information about you: Temperature Pulse Blood pressure Weight 98 degrees 80/minute 107/81 169.9 kg Height 1.626 m Jayshree Huffman APRN.KATTY 09/07/2023 10:12 AM Signed BMI SURGERY Post [...] loss: 6.128 kg (13 lb 8.2 oz) [place] weight: 66.1 kg (145 lb 10.6 oz) [...] Orders FOLLOW UP: as scheduled Jayshree Huffman APRN.AQUARIUM SPECIALIST Referring Provider: JOE GRANDA [[id number]] Allergies As of Date: 09/07/2023 Noted Allergy Reaction AD (more content not included)... Normal [facility] ANES POSTPROC EVALon 024 ANES POSTPROC EVAL HNO ID: [id number] Author: AMANDA ALCANTAR DO Service: Anesthesiology Author [...] PATIENT NAME: Susi Naqvi Ortiz DATE: August 17, 2023 TIME: 11:37 AM CSN: [id number] [facility] CNOVon 08-17-2023 CNOV Office Visit (BMIREJ ) ANGELSUSI Naqvi ([id number]) 1985 F FNS Date Time Provider Department 08/17/23 10:00 AM JAYSHREE HUFFMAN During your visit today, we recorded the following information about you: Temperature Pulse Blood pressure Weight 97.3 degrees 75/minute 117/75 167.8 kg Height 1.626 m Jayshree Huffman APRN.AQUARIUM SPECIALIST 08/17/2023 10:41 AM Signed Assessment BMI Surgical PostOp Clinic Note August 17, 2023 INTERVAL HISTORY: Susikelli Ortiz is here for 13 day post [...] loss: 8.2 kg (18 lb 1.2 oz) [place] weight: 66.1 kg (145 lb 10.6 oz) [...] included)... Normal [facility] SUS[facility] ORTIZ ([id number]) 1985 F FNS Date Time Provider Department 08/13/23 CYNTHIA PETERSONI During your visit today, we recorded the following information about you: Cynthia Peterson, RN 08/13/2023 12:14 PM Signed BMI [...] appt. Reminded patient of how to reach [facility] or their surgeons office. Patient reminded to seek medical attention if they develop chest pain, a sudden onset of shortness of breath or persistent pain in the calf of their legs - BEST TO ALWAYS present to [facility] hospital where you had your surgery Patient verbalized understanding of all advice and instructions given. Cynthia Peterson RN Allergies As of Date: 08/13/2023 Noted Allergy Reaction ADHES. LTLZ-DDRY-NPCNOUQGVAHI 03/13/2015 2 - Rash ADHESIVE TAPE-SILICONES 05/06/2019 2 - Rash AUGMENTIN (AMOXICILLIN-POT CLAVUL*05/06/2019 6 - Diarrhea KEFLEX (CEPHALEXIN) 05/06/2019 2 - Rash 9 - Itching PENICILLINS 05/06/2019 4 - Hives ULTRAM (TRAMADOL HCL) 03/13/2015 9 - Itching Date Reviewed: 08/11/2023 Reviewed by: Navdeep Vance RN - Fully Assessed Reason for [...] affective dis (more content not included)... Normal [facility] Basic metabolic 2000 panelon 08-11-2023 Anion gap [Moles/Vol] 13 mmol/L Normal 9-18 [facility] Comment on above: Order Comment: Specimen Type: BLOOD SPEC IMENOrdering Facility: [facility] Address: [address] [place] [address] Performed By: #### 1 9123-9, 2777-1, 94363-4 ####[facility] LABORATORYCLIA [id number] [place] [address] [place] Calcium [Mass/Vol] 8.8 mg/dL Normal 8.5-10.2 [facility] Comment on above: Order Comment: Specimen Type: BLOOD SPEC IMENOrdering Facility: [facility] Address: [address] [place] [address] Performed By: #### 1 9123-9, 2777-1, 31854-4 ####[facility] LABORATORYCLIA [id number] [place] [id number] [place] Chloride [Moles/Vol] 105 mmol/L Normal 97-105 [facility] Comment on above: Order Comment: Specimen Type: BLOOD SPEC IMENOrdering Facility: [facility] Address: [address] [place] [address] Performed By: #### 1 9123-9, 2777-1, 76497-8 ####[facility] LABORATORYCLIA [id number] [place] [id number] [place] CO2 [Moles/Vol] 20 mmol/L Low 22-30 [facility] Comment on above: Order Comment: Specimen Type: BLOOD SPEC IMENOrdering Facility: [facility] Address: [address] [place] [address] Performed By: #### 1 9123-9, 2777-1, 99793-4 ####[facility] LABORATORYCLIA [id number] [place] [id number] [place] [facility] Creatinine [Mass/Vol] 0.57 mg/dL Low 0.58-0.96 [facility] Comment on above: Order Comment: Specimen Type: BLOOD SPEC IMENOrdering Facility: [facility] Address: [address] [place] [address] Performed By: #### 1 9123-9, 2777-1, 04085-5 ####[facility] LABORATORYCLIA [id number] [place] [id number] [facility] Creatinine and Glomerular filtration rate.predicted panel (S/P/Bld) 119 mL/min/1.73m??? Normal >=60 [facility] Comment on above: Order Comment: Specimen Type: BLOOD SPEC IMENOrdering Facility: [facility] Address: [address] [place] [address] Result Comment: Janet mated Glomerular Filtration Rate [...] GFR. Performed By: #### 1 9123-9, 2777-1, 74126-4 ####[facility] LABORATORYCLIA [id number] [place] [id number] [place] Glucose [Mass/Vol] 92 mg/dL Normal 74-99 [facility] Comment on above: Order Comment: Specimen Type: BLOOD SPEC IMENOrdering Facility: [facility] Address: [address] [place] [address] Result Comment: The [place] [employer] Association (ADA) provides guidance for cutoff [...] Standards of Medical Care in Diabetes 2016, [place] [employer]. Diabetes Care. 2016.39(Suppl 1). Performed By: #### 1 9123-9, 2777, 26641-4 ####[facility] LABORATORYCLIA [id number] [place] [address] [place] Potassium [Moles/Vol] 4.2 mmol/L Normal 3.7-5.1 [facility] Comment on above: Order Comment: Specimen Type: BLOOD SPEC IMENOrdering Facility: [facility] Address: [address] [place] [address] Performed By: #### 1 9123-9, 27712-27, 64847-6 ####[facility] LABORATORYCLIA [id number] [place] [address] [place] Sodium [Moles/Vol] 138 mmol/L Normal 136-144 [facility] Comment on above: Order Comment: Specimen Type: BLOOD SPEC IMENOrdering Facility: [facility] Address: [address] [place] [address] Performed By: #### 1 9123-9, 27712-27, 75267-2 ####[facility] LABORATORYCLIA [id number] [place] [id number] [place] Urea nitrogen [Mass/Vol] 3 mg/dL Low 7-21 [facility] Comment on above: Order Comment: Specimen Type: BLOOD SPEC IMENOrdering Facility: [facility] Address: [address] [place] [address] Performed By: #### 1 9123-9, 2777, 04937-8 ####[facility] LABORATORYCLIA [id number] [place] [id number] [place] CBC W Auto Differential pane l (Bld)on 08-11-2023 Basophils (Bld) [#/Vol] 0.00 10*3/uL Normal <0.11 [facility] Comment on above: Order Comment: Specimen Type: BLOOD SPEC IMENOrdering Facility: [facility] Address: [address] [place] [address] Performed By: #### 5 7021-8 ####[facility] LABORATORYCLIA [id number] [place] [address] [place] Basophils/100 WBC (Bld) 0.0 % Normal [facility] Comment on above: Order Comment: Specimen Type: BLOOD SPEC IMENOrdering Facility: [facility] Address: [address] [place] [address] Performed By: #### 5 7021-8 ####[facility] LABORATORYCLIA [id number] [place] [address] [place] Differential cell count method Nom (Bld) Manual Normal [facility] Comment on above: Order Comment: Specimen Type: BLOOD SPEC IMENOrdering Facility: [facility] Address: [address] [place] [address] Performed By: #### 5 7021-8 ####[facility] LABORATORYCLIA [id number] [place] [address] [place] Eosinophils (Bld) [#/Vol] 0.62 10*3/uL High <0.46 [facility] Comment on above: Order Comment: Specimen Type: BLOOD SPEC IMENOrdering Facility: [facility] Address: [address] [place] [address] Performed By: #### 5 7021-8 ####[facility] LABORATORYCLIA [id number] [place] [address] [place] Eosinophils/100 WBC (Bld) 4.0 % Normal [facility] Comment on above: Order Comment: Specimen Type: BLOOD SPEC IMENOrdering Facility: [facility] Address: [address] [place] [address] Performed By: #### 5 7021-8 ####GEORGE LABORATORYCLIA [id number] [place] [address] [place] Erythrocyte distribution width (RBC) [Ratio] 14.8 % Normal 11.5-15.0 [facility] Comment on above: Order Comment: Specimen Type: BLOOD SPEC IMENOrdering Facility: [facility] Address: [address] [place] [address] Performed By: #### 5 7021-8 ####[facility] LABORATORYCLIA [id number] [place] [id number] [place] Hematocrit (Bld) [Volume fraction] 36.9 % Normal 36.0-46.0 [facility] Comment on above: Order Comment: Specimen Type: BLOOD SPEC IMENOrdering Facility: [facility] Address: [address] [place] [address] Performed By: #### 5 7021-8 ####[facility] LABORATORYCLIA [id number] [place] [address] [place] Hemoglobin (Bld) [Mass/Vol] 11.8 g/dL Normal 11.5-15.5 [facility] Comment on above: Order Comment: Specimen Type: BLOOD SPEC IMENOrdering Facility: [facility] Address: [address] [place] [address] Performed By: #### 5 7021-8 ####[facility] LABORATORYCLIA [id number] [place] [address] [place] Lymphocytes (Bld) [#/Vol] 3.59 10*3/uL Normal 1.00-4.00 [facility] Comment on above: Order Comment: Specimen Type: BLOOD SPEC IMENOrdering Facility: [facility] Address: [address] [place] [address] Performed By: #### 5 7021-8 ####[facility] LABORATORYCLIA [id number] [place] [id number] [place] Lymphocytes/100 WBC (Bld) 22.0 % Normal [facility] Comment on above: Order Comment: Specimen Type: BLOOD SPEC IMENOrdering Facility: [facility] Address: [address] [place] [address] Performed By: #### 5 7021-8 ####GE[facility] LABORATORYCLIA [id number] [place] [id number] [place] MCH (RBC) [Entitic mass] 29.6 pg Normal 26.0-34.0 [facility] Comment on above: Order Comment: Specimen Type: BLOOD SPEC IMENOrdering Facility: [facility] Address: [address] [place] [address] Performed By: #### 5 7021-8 ####GE[facility] LABORATORYCLIA [id number] [address] [place] MCHC (RBC) [Mass/Vol] 32.0 g/dL Normal 30.5-36.0 [facility] Comment on above: Order Comment: Specimen Type: BLOOD SPEC IMENOrdering Facility: [facility] Address: [address] [place] [address] Performed By: #### 5 7021-8 ####[facility] LABORATORYCLIA [id number] [address] [place] MCV (RBC) [Entitic vol] 92.7 fL Normal 80.0-100.0 [facility] Comment on above: Order Comment: Specimen Type: BLOOD SPEC IMENOrdering Facility: [facility] Address: [address] [place] [address] Performed By: #### 5 7021-8 ####GE[facility] LABORATORYCLIA [id number] [address] [place] Monocytes (Bld) [#/Vol] 1.56 10*3/uL High <0.87 [facility] Comment on above: Order Comment: Specimen Type: BLOOD SPEC IMENOrdering Facility: [facility] Address: [address] [place] [address] Performed By: #### 5 7021-8 ####[facility] LABORATORYCLIA [id number] [address] Monocytes/100 WBC (Bld) 10.0 % Normal [facility] Comment on above: Order Comment: Specimen Type: BLOOD SPEC IMENOrdering Facility: [facility] Address: [address] [place] [address] Performed By: #### 5 7021-8 ####[facility] LABORATORYCLIA [id number] [place] [id number] [place] Neutrophils (Bld) [#/Vol] 9.83 10*3/uL High 1.45-7.50 [facility] Comment on above: Order Comment: Specimen Type: BLOOD SPEC IMENOrdering Facility: [facility] Address: [address] [place] [address] Performed By: #### 5 7021-8 ####[facility] LABORATORYCLIA [id number] [place] [id number] [place] Neutrophils/100 WBC (Bld) 63.0 % Normal [facility] Comment on above: Order Comment: Specimen Type: BLOOD SPEC IMENOrdering Facility: [facility] Address: [address] [place] [address] Performed By: #### 5 7021-8 ####[facility] LABORATORYCLIA [id number] [place] [address] [place] Nucleated RBC (Bld) [#/Vol] 0.16 10*3/uL High <0.01 [facility] Comment on above: Order Comment: Specimen Type: BLOOD SPEC IMENOrdering Facility: [facility] Address: [address] [place] [address] Performed By: #### 5 7021-8 ####[facility] LABORATORYCLIA [id number] [place] [id number] [place] Nucleated RBC/100 WBC (Bld) [Ratio] 1.0 /100 WBC Normal [facility] Comment on above: Order Comment: Specimen Type: BLOOD SPEC IMENOrdering Facility: [facility] Address: [address] [place] [address] Performed By: #### 5 7021-8 ####[facility] LABORATORYCLIA [id number] [place] [id number] [place] Platelet mean volume (Bld) [Entitic vol] 9.4 fL Normal 9.0-12.7 [facility] Comment on above: Order Comment: Specimen Type: BLOOD SPEC IMENOrdering Facility: [facility] Address: [address] [place] [address] Performed By: #### 5 7021-8 ####[facility] LABORATORYCLIA [id number] [place] [id number] [place] Platelets (Bld) [#/Vol] 579 10*3/uL High 150-400 [facility] Comment on above: Order Comment: Specimen Type: BLOOD SPEC IMENOrdering Facility: [facility] Address: [address] [place] [address] Performed By: #### 5 7021-8 ####[facility] LABORATORYCLIA [id number] [place] [address] [place] Platelets Estimate (Bld) [#/Vol] Increased Normal [facility] Comment on above: Order Comment: Specimen Type: BLOOD SPEC IMENOrdering Facility: [facility] Address: [address] [place] [address] Performed By: #### 5 7021-8 ####[facility] LABORATORYCLIA [id number] [place] [address] [place] Polychromasia LM Ql (Bld) Slight Normal [facility] Comment on above: Order Comment: Specimen Type: BLOOD SPEC IMENOrdering Facility: [facility] Address: [address] [place] [address] Performed By: #### 5 7021-8 ####[facility] LABORATORYCLIA [id number] [place] [id number] [place] RBC (Bld) [#/Vol] 3.98 10*6/uL Normal 3.90-5.20 [facility] Comment on above: Order Comment: Specimen Type: BLOOD SPEC IMENOrdering Facility: [facility] Address: [address] [place] [address] Performed By: #### 5 7021-8 ####[facility] LABORATORYCLIA [id number] [place] [address] [place] RED CELL MORPH Reviewed: see result s of individual morphologies Normal [facility] Comment on above: Order Comment: Specimen Type: BLOOD SPEC IMENOrdering Facility: [facility] Address: [address] [place] [address] Performed By: #### 5 7021-8 ####[facility] LABORATORYCLIA [id number] [place] [id number] [place] [facility] Target cells LM Ql (Bld) Few Normal [facility] Comment on above: Order Comment: Specimen Type: BLOOD SPEC IMENOrdering Facility: [facility] Address: [address] [place] [address] Performed By: #### 5 7021-8 ####CONET[facility] LABORATORYCLIA [id number] [place] [id number] [place] [facility] Variant lymphocytes/100 WBC (Bld) 1.0 % Normal [facility] Comment on above: Order Comment: Specimen Type: BLOOD SPEC IMENOrdering Facility: [facility] Address: [address] [place] [address] Performed By: #### 5 7021-8 ####CON[facility] LABORATORYCLIA [id number] [place] [id number] [place] WBC (Bld) [#/Vol] 15.61 10*3/uL High 3.70-11.00 [facility] Comment on above: Order Comment: Specimen Type: BLOOD SPEC IMENOrdering Facility: [facility] Address: [address] [place] [address] Performed By: #### 5 7021-8 ####[facility] LABORATORYCLIA [id number] [place] [id number] [facility] [place] CNDSon 08-11-2023 CNDS HNO ID: [id number] Author: JOE GRANDA MD Service: General Surgery [...] Needs: - follow up with JAYSHREE HUFFMAN [employer] as listed below Labs AND Procedures Pending [...] Your Medications These medications were sent to [facility] [address] [place] [address] Hours: Thursday-Thursday: 7am-7pm, Sat: 9am-1pm acetaminophen 500 mg tablet enoxaparin 60 mg/0.6 mL Syrg ondansetron orally disintegrating 4 mg disintegrating tablet oxyCODONE IR 5 mg immediate release tablet pantoprazole DR 40 mg tablet Appointments for Next 60 Days Date Time Provider Location Dept Phone 08/17/2023 10:00 AM JAYSHREE HUFFMAN [phone] 08/19/2023 11:45 AM KARON MONSIVAIS [phone] 08/31/2023 9:45 AM MARY COLBERT [facility] [phone] 08/31/2023 10:30 AM CHRISTOPHER SANTIAGO [facility] [phone] 09/07/2023 1:30 PM JAYSHREE HUFFMAN [phone] Highest Readmission Risk Score: 11 The 30 [...] Resulted Calcium (more content not included)... Normal [facility] Magnesium SerPl-mCncon 08-11 Magnesium [Mass/Vol] 2.0 mg/dL Normal 1.7-2.3 [facility] Comment on above: Order Comment: Specimen Type: BLOOD SPEC IMENOrdering Facility: [facility] Address: [address] [id number] Performed By: #### 1 9123-9, 2777-1, 47139-1 ####[facility] LABORATORYCLIA [id number] [place] [id number] [place] NURSING PROGon 08-11-2023 NURSING PROG HNO ID: [id number] Author: NAVDEEP VANCE RN Service: ? Author Type: Registered [...] contact provider if anything changes occur. Normal [facility] Phosphate [facility] 08-11 Phosphate [Mass/Vol] 4.3 mg/dL Normal 2.7-4.8 [facility] Comment on above: Order Comment: Specimen Type: BLOOD SPEC IMENOrdering Facility: [facility] Address: [address] [place] [address] Performed By: #### 1 9123-9, 2777-1, 79839-1 ####CONET[facility] LABORATORYCLIA [id number] [place] [id number] [place] Basic metabolic 2000 panelon 08-10-2023 Anion gap [Moles/Vol] 12 mmol/L Normal 9-18 [facility] Comment on above: Order Comment: Specimen Type: BLOOD SPEC IMENOrdering Facility: [facility] Address: [address] [place] [address] Performed By: #### 1 9123-9, 00542-9, 2776-06 ####[facility] LABORATORYCLIA [id number] [place] [address] [place] Calcium [Mass/Vol] 8.7 mg/dL Normal 8.5-10.2 [facility] Comment on above: Order Comment: Specimen Type: BLOOD SPEC IMENOrdering Facility: [facility] Address: [address] [place] [address] Performed By: #### 1 9123-9, 20324-8, 2776-06 ####[facility] LABORATORYCLIA [id number] [place] [id number] [place] Chloride [Moles/Vol] 104 mmol/L Normal 97-105 [facility] Comment on above: Order Comment: Specimen Type: BLOOD SPEC IMENOrdering Facility: [facility] Address: [address] [place] [address] Performed By: #### 1 9123-9, , 2776-06 ####[facility] LABORATORYCLIA [id number] [place] [id number] [place] CO2 [Moles/Vol] 24 mmol/L Normal 22-30 [facility] Comment on above: Order Comment: Specimen Type: BLOOD SPEC IMENOrdering Facility: [facility] Address: [address] [place] [address] Performed By: #### 1 23-9, 17711-5, 2776-06 ####GEORGE LABORATORYCLIA [id number] [place] [id number] [place] Creatinine [Mass/Vol] 0.65 mg/dL Normal 0.58-0.96 [facility] Comment on above: Order Comment: Specimen Type: BLOOD SPEC IMENOrdering Facility: [facility] Address: [address] [place] [address] Performed By: #### 1 9123-9, 85820-6, 2776-06 ####GEORGE LABORATORYCLIA [id number] [place] [id number] [place] Creatinine and Glomerular filtration rate.predicted panel (S/P/Bld) 116 mL/min/1.73m??? Normal >=60 [facility] Comment on above: Order Comment: Specimen Type: BLOOD SPEC IMENOrdering Facility: [facility] Address: [address] [place] [address] Result Comment: Janet mated Glomerular Filtration Rate [...] actual GFR. Performed By: #### 1 9123-9, 64462-9, 277- ####CONETOE LABORATORYCLIA [id number] [place] [id number] [place] Glucose [Mass/Vol] 91 mg/dL Normal 74-99 [facility] Comment on above: Order Comment: Specimen Type: BLOOD SPEC IMENOrdering Facility: [facility] Address: [address] [place] [address] Result Comment: The [place] [employer] (ADA) provides guidance for cutoff [...] Standards of Medical Care in Diabetes 2016, [place] [employer]. Diabetes Care. 2016.39(Suppl 1). Performed By: #### 1 9123-9, 48107-4, 277- ####CONETOE LABORATORYCLIA [id number] [place] [id number] [place] Potassium [Moles/Vol] 3.4 mmol/L Low 3.7-5.1 [facility] Comment on above: Order Comment: Specimen Type: BLOOD SPEC IMENOrdering Facility: [facility] Address: [address] [place] [address] Performed By: #### 1 9123-9, 25190-9, 2776-06 ####CONETOE LABORATORYCLIA [id number] [place] [id number] [place] Sodium [Moles/Vol] 140 mmol/L Normal 136-144 [facility] Comment on above: Order Comment: Specimen Type: BLOOD SPEC IMENOrdering Facility: [facility] Address: [address] [place] [address] Performed By: #### 1 9123-9, 37463-7, 2776-06 ####[facility] LABORATORYCLIA [id number] [place] [address] [place] Urea nitrogen [Mass/Vol] 3 mg/dL Low 7-21 [facility] Comment on above: Order Comment: Specimen Type: BLOOD SPEC IMENOrdering Facility: [facility] Address: [address] [place] [address] Performed By: #### 1 9123-9, 16532-5, 2776-06 ####[facility] LABORATORYCLIA [id number] [place] [address] [place] CBC W Auto Differential pane l (Bld)on 08-10-2023 Basophils (Bld) [#/Vol] 0.08 10*3/uL Normal <0.11 [facility] Comment on above: Order Comment: Specimen Type: BLOOD SPEC IMENOrdering Facility: [facility] Address: [address] [place] [address] Performed By: #### 5 7021-8 ####CONETOE LABORATORYCLIA [id number] [place] [address] [place] Basophils/100 WBC (Bld) 0.6 % Normal [facility] Comment on above: Order Comment: Specimen Type: BLOOD SPEC IMENOrdering Facility: [facility] Address: [address] [place] [address] Performed By: #### 5 7021-8 ####[facility] LABORATORYCLIA [id number] [place] [id number] [place] Differential cell count method Nom (Bld) Auto Normal [facility] Comment on above: Order Comment: Specimen Type: BLOOD SPEC IMENOrdering Facility: [facility] Address: [address] [place] [address] Performed By: #### 5 7021-8 ####[facility] LABORATORYCLIA [id number] [place] [address] [place] Eosinophils (Bld) [#/Vol] 0.78 10*3/uL High <0.46 [facility] Comment on above: Order Comment: Specimen Type: BLOOD SPEC IMENOrdering Facility: [facility] Address: [address] [place] [address] Performed By: #### 5 7021-8 ####GEORGE LABORATORYCLIA [id number] [place] [address] [place] Eosinophils/100 WBC (Bld) 5.6 % Normal [facility] Comment on above: Order Comment: Specimen Type: BLOOD SPEC IMENOrdering Facility: [facility] Address: [address] [place] [address] Performed By: #### 5 7021-8 ####GEORGE LABORATORYCLIA [id number] [address] [place] Erythrocyte distribution width (RBC) [Ratio] 14.7 % Normal 11.5-15.0 [facility] Comment on above: Order Comment: Specimen Type: BLOOD SPEC IMENOrdering Facility: [facility] Address: [address] [place] [address] Performed By: #### 5 7021-8 ####[facility] LABORATORYCLIA [id number] [address] [place] Hematocrit (Bld) [Volume fraction] 36.9 % Normal 36.0-46.0 [facility] Comment on above: Order Comment: Specimen Type: BLOOD SPEC IMENOrdering Facility: [facility] Address: [address] [place] [address] Performed By: #### 5 7021-8 ####[facility] LABORATORYCLIA [id number] [place] [id number] [place] Hemoglobin (Bld) [Mass/Vol] 11.6 g/dL Normal 11.5-15.5 [facility] Comment on above: Order Comment: Specimen Type: BLOOD SPEC IMENOrdering Facility: [facility] Address: [address] [place] [address] Performed By: #### 5 7021-8 ####[facility] LABORATORYCLIA [id number] [place] [id number] [place] Immature granulocytes (Bld) [#/Vol] 0.11 10*3/uL High <0.10 [facility] Comment on above: Order Comment: Specimen Type: BLOOD SPEC IMENOrdering Facility: [facility] Address: [address] [place] [address] Performed By: #### 5 7021-8 ####[facility] LABORATORYCLIA [id number] [place] [id number] [place] Immature granulocytes/100 WBC (Bld) 0.8 % Normal [facility] Comment on above: Order Comment: Specimen Type: BLOOD SPEC IMENOrdering Facility: [facility] Address: [address] [place] [address] Performed By: #### 5 7021-8 ####GEORGE LABORATORYCLIA [id number] [place] [id number] [place] Lymphocytes (Bld) [#/Vol] 4.03 10*3/uL High 1.00-4.00 [facility] Comment on above: Order Comment: Specimen Type: BLOOD SPEC IMENOrdering Facility: [facility] Address: [address] [place] [address] Performed By: #### 5 7021-8 ####[facility] LABORATORYCLIA [id number] [place] [id number] [place] Lymphocytes/100 WBC (Bld) 28.8 % Normal [facility] Comment on above: Order Comment: Specimen Type: BLOOD SPEC IMENOrdering Facility: [facility] Address: [address] [place] [address] Performed By: #### 5 7021-8 ####[facility] LABORATORYCLIA [id number] [address] MCH (RBC) [Entitic mass] 29.2 pg Normal 26.0-34.0 [facility] Comment on above: Order Comment: Specimen Type: BLOOD SPEC IMENOrdering Facility: [facility] Address: [address] [place] [address] Performed By: #### 5 7021-8 ####[facility] LABORATORYCLIA [id number] [address] MCHC (RBC) [Mass/Vol] 31.4 g/dL Normal 30.5-36.0 [facility] Comment on above: Order Comment: Specimen Type: BLOOD SPEC IMENOrdering Facility: [facility] Address: [address] [place] [address] Performed By: #### 5 7021-8 ####[facility] LABORATORYCLIA [id number] [address] [place] MCV (RBC) [Entitic vol] 92.9 fL Normal 80.0-100.0 [facility] Comment on above: Order Comment: Specimen Type: BLOOD SPEC IMENOrdering Facility: [facility] Address: [address] [place] [address] Performed By: #### 5 7021-8 ####GEORGE LABORATORYCLIA [id number] [address] Monocytes (Bld) [#/Vol] 1.33 10*3/uL High <0.87 [facility] Comment on above: Order Comment: Specimen Type: BLOOD SPEC IMENOrdering Facility: [facility] Address: [address] [place] [address] Performed By: #### 5 7021-8 ####[facility] LABORATORYCLIA [id number] [address] [place] Monocytes/100 WBC (Bld) 9.5 % Normal [facility] Comment on above: Order Comment: Specimen Type: BLOOD SPEC IMENOrdering Facility: [facility] Address: [address] [place] [address] Performed By: #### 5 7021-8 ####GEORGE LABORATORYCLIA [id number] [place] [id number] [place] Neutrophils (Bld) [#/Vol] 7.66 10*3/uL High 1.45-7.50 [facility] Comment on above: Order Comment: Specimen Type: BLOOD SPEC IMENOrdering Facility: [facility] Address: [address] [place] [address] Performed By: #### 5 7021-8 ####GEORGE LABORATORYCLIA [id number] [place] [id number] [place] Neutrophils/100 WBC (Bld) 54.7 % Normal [facility] Comment on above: Order Comment: Specimen Type: BLOOD SPEC IMENOrdering Facility: [facility] Address: [address] [place] [address] Performed By: #### 5 7021-8 ####GEORGE LABORATORYCLIA [id number] [place] [id number] [place] Nucleated RBC (Bld) [#/Vol] 0.03 10*3/uL High <0.01 [facility] Comment on above: Order Comment: Specimen Type: BLOOD SPEC IMENOrdering Facility: [facility] Address: [address] [place] [address] Performed By: #### 5 7021-8 ####GEORGE LABORATORYCLIA [id number] [place] [id number] [place] Nucleated RBC/100 WBC (Bld) [Ratio] 0.2 /100 WBC Normal [facility] Comment on above: Order Comment: Specimen Type: BLOOD SPEC IMENOrdering Facility: [facility] Address: [address] [place] [address] Performed By: #### 5 7021-8 ####GEORGE LABORATORYCLIA [id number] [place] [id number] [place] Platelet mean volume (Bld) [Entitic vol] 9.9 fL Normal 9.0-12.7 [facility] Comment on above: Order Comment: Specimen Type: BLOOD SPEC IMENOrdering Facility: [facility] Address: [address] [place] [address] Performed By: #### 5 7021-8 ####CONETOE LABORATORYCLIA [id number] [place] [id number] [place] Platelets (Bld) [#/Vol] 557 10*3/uL High 150-400 [facility] Comment on above: Order Comment: Specimen Type: BLOOD SPEC IMENOrdering Facility: [facility] Address: [address] [place] [address] Performed By: #### 5 7021-8 ####[facility] LABORATORYCLIA [id number] [place] [id number] [place] RBC (Bld) [#/Vol] 3.97 10*6/uL Normal 3.90-5.20 [facility] Comment on above: Order Comment: Specimen Type: BLOOD SPEC IMENOrdering Facility: [facility] Address: [address] [place] [address] Performed By: #### 5 7021-8 ####CONETOE LABORATORYCLIA [id number] [place] [id number] [place] WBC (Bld) [#/Vol] 13.99 10*3/uL High 3.70-11.00 [facility] Comment on above: Order Comment: Specimen Type: BLOOD SPEC IMENOrdering Facility: [facility] Address: [address] [place] [address] Performed By: #### 5 7021-8 ####CONETOE LABORATORYCLIA [id number] [place] [id number] [place] Magnesium SerPl-mCncon 08-10 Magnesium [Mass/Vol] 1.8 mg/dL Normal 1.7-2.3 [facility] Comment on above: Order Comment: Specimen Type: BLOOD SPEC IMENOrdering Facility: [facility] Address: [address] [place] [address] Performed By: #### 1 9123-9, 53390-6, 2777- ####CONETOE LABORATORYCLIA [id number] [place] [id number] [place] NURSING PROGon 08-10-2023 NURSING PROG HNO ID: [id number] Author: SUDHA WELCH RN Service: ? Author [...] possible home today, continue to monitor. Normal [facility] Phosphate SerPl-mCncon 08-10 Phosphate [Mass/Vol] 4.2 mg/dL Normal 2.7-4.8 [facility] Comment on above: Order Comment: Specimen Type: BLOOD SPEC IMENOrdering Facility: [facility] Address: [address] [place] [address] Performed By: #### 1 9123-9, 14830-8, 2776-06 ####CONETOE LABORATORYCLIA [id number] [place] [id number] [place] Basic metabolic 2000 panelon 08-09-2023 Anion gap [Moles/Vol] 12 mmol/L Normal 9-18 [facility] Comment on above: Order Comment: Specimen Type: BLOOD SPEC IMENOrdering Facility: [facility] Address: [address] [place] [address] Performed By: #### 2 777-1, 74240-5, 71449-7 ####CONETOE LABORATORYCLIA [id number] [place] [id number] [place] Calcium [Mass/Vol] 8.3 mg/dL Low 8.5-10.2 [facility] Comment on above: Order Comment: Specimen Type: BLOOD SPEC IMENOrdering Facility: [facility] Address: [address] [place] [address] Performed By: #### 2 777-1, , ####CONETOE LABORATORYCLIA [id number] [place] [id number] [place] Chloride [Moles/Vol] 103 mmol/L Normal 97-105 [facility] Comment on above: Order Comment: Specimen Type: BLOOD SPEC IMENOrdering Facility: [facility] Address: [address] [place] [address] Performed By: #### 2 777-1, , ####CONETOE LABORATORYCLIA [id number] [place] [id number] [place] CO2 [Moles/Vol] 22 mmol/L Normal 22-30 [facility] Comment on above: Order Comment: Specimen Type: BLOOD SPEC IMENOrdering Facility: [facility] Address: [address] [place] [address] Performed By: #### 2 777-1, , ####CONETOE LABORATORYCLIA [id number] [place] [id number] [place] Creatinine [Mass/Vol] 0.59 mg/dL Normal 0.58-0.96 [facility] Comment on above: Order Comment: Specimen Type: BLOOD SPEC IMENOrdering Facility: [facility] Address: [address] [place] [address] Performed By: #### 2 777-1, , ####CONETOE LABORATORYCLIA [id number] [place] [id number] [facility] [place] Creatinine and Glomerular filtration rate.predicted panel (S/P/Bld) 118 mL/min/1.73m??? Normal >=60 [facility] Comment on above: Order Comment: Specimen Type: BLOOD SPEC IMENOrdering Facility: [facility] Address: [address] [place] [address] Result Comment: Janet mated Glomerular Filtration Rate [...] By: #### 2 777-1, , ####GEORGE LABORATORYCLIA [id number] [place] [id number] [place] Glucose [Mass/Vol] 98 mg/dL Normal 74-99 [facility] Comment on above: Order Comment: Specimen Type: BLOOD SPEC IMENOrdering Facility: [facility] Address: [address] [place] [address] Result Comment: The [place] [employer] (ADA) provides guidance for cutoff [...] Standards of Medical Care in Diabetes 2016, [place] [employer]. Diabetes Care. 2016.39(Suppl 1). Performed By: #### 2 777-1, , ####GEORGE LABORATORYCLIA [id number] [place] [id number] [place] Potassium [Moles/Vol] 3.5 mmol/L Low 3.7-5.1 [facility] Comment on above: Order Comment: Specimen Type: BLOOD SPEC IMENOrdering Facility: [facility] Address: [address] [place] [address] Performed By: #### 2 777-1, , ####GEORGE LABORATORYCLIA [id number] [place] [id number] [place] Sodium [Moles/Vol] 137 mmol/L Normal 136-144 [facility] Comment on above: Order Comment: Specimen Type: BLOOD SPEC IMENOrdering Facility: [facility] Address: [address] [place] [address] Performed By: #### 2 777-1, , ####[facility] LABORATORYCLIA [id number] [place] [address] [place] Urea nitrogen [Mass/Vol] 3 mg/dL Low 7- [facility] Comment on above: Order Comment: Specimen Type: BLOOD SPEC IMENOrdering Facility: [facility] Address: [address] [place] [address] Performed By: #### 2 777-1, , ####[facility] LABORATORYCLIA [id number] [place] [id number] [place] CBC W Auto Differential pane l (Bld)on 08-09-2023 Basophils (Bld) [#/Vol] 0.08 10*3/uL Normal <0.11 [facility] Comment on above: Order Comment: Specimen Type: BLOOD SPEC IMENOrdering Facility: [facility] Address: [address] [place] [address] Performed By: #### 5 7021-8 ####[facility] LABORATORYCLIA [id number] [place] [address] [place] Basophils/100 WBC (Bld) 0.6 % Normal [facility] Comment on above: Order Comment: Specimen Type: BLOOD SPEC IMENOrdering Facility: [facility] Address: [address] [place] [address] Performed By: #### 5 7021-8 ####[facility] LABORATORYCLIA [id number] [place] [address] [place] Differential cell count method Nom (Bld) Auto Normal [facility] Comment on above: Order Comment: Specimen Type: BLOOD SPEC IMENOrdering Facility: [facility] Address: [address] [place] [address] Performed By: #### 5 7021-8 ####[facility] LABORATORYCLIA [id number] [place] [address] [place] Eosinophils (Bld) [#/Vol] 0.78 10*3/uL High <0.46 [facility] Comment on above: Order Comment: Specimen Type: BLOOD SPEC IMENOrdering Facility: [facility] Address: [address] [place] [address] Performed By: #### 5 7021-8 ####GEORGE LABORATORYCLIA [id number] [address] Eosinophils/100 WBC (Bld) 5.4 % Normal [facility] Comment on above: Order Comment: Specimen Type: BLOOD SPEC IMENOrdering Facility: [facility] Address: [address] [place] [address] Performed By: #### 5 7021-8 ####[facility] LABORATORYCLIA [id number] [address] Erythrocyte distribution width (RBC) [Ratio] 14.6 % Normal 11.5-15.0 [facility] Comment on above: Order Comment: Specimen Type: BLOOD SPEC IMENOrdering Facility: [facility] Address: [address] [place] [address] Performed By: #### 5 7021-8 ####[facility] LABORATORYCLIA [id number] [address] Hematocrit (Bld) [Volume fraction] 37.6 % Normal 36.0-46.0 [facility] Comment on above: Order Comment: Specimen Type: BLOOD SPEC IMENOrdering Facility: [facility] Address: [address] [place] [address] Performed By: #### 5 7021-8 ####GEORGE LABORATORYCLIA [id number] [address] [place] Hemoglobin (Bld) [Mass/Vol] 11.9 g/dL Normal 11.5-15.5 [facility] Comment on above: Order Comment: Specimen Type: BLOOD SPEC IMENOrdering Facility: [facility] Address: [address] [place] [address] Performed By: #### 5 7021-8 ####GEORGE LABORATORYCLIA [id number] [place] Immature granulocytes (Bld) [#/Vol] 0.08 10*3/uL Normal <0.10 [facility] Comment on above: Order Comment: Specimen Type: BLOOD SPEC IMENOrdering Facility: [facility] Address: [address] [place] [address] Performed By: #### 5 7021-8 ####[facility] LABORATORYCLIA [id number] [address] [place] Immature granulocytes/100 WBC (Bld) 0.6 % Normal [facility] Comment on above: Order Comment: Specimen Type: BLOOD SPEC IMENOrdering Facility: [facility] Address: [address] [place] [address] Performed By: #### 5 7021-8 ####[facility] LABORATORYCLIA [id number] [address] Lymphocytes (Bld) [#/Vol] 3.71 10*3/uL Normal 1.00-4.00 [facility] Comment on above: Order Comment: Specimen Type: BLOOD SPEC IMENOrdering Facility: [facility] Address: [address] [place] [address] Performed By: #### 5 7021-8 ####[facility] LABORATORYCLIA [id number] [address] Lymphocytes/100 WBC (Bld) 25.7 % Normal [facility] Comment on above: Order Comment: Specimen Type: BLOOD SPEC IMENOrdering Facility: [facility] Address: [address] [place] [address] Performed By: #### 5 7021-8 ####[facility] LABORATORYCLIA [id number] [place] [id number] [place] MCH (RBC) [Entitic mass] 29.5 pg Normal 26.0-34.0 [facility] Comment on above: Order Comment: Specimen Type: BLOOD SPEC IMENOrdering Facility: [facility] Address: [address] [place] [address] Performed By: #### 5 7021-8 ####GEORGE LABORATORYCLIA [id number] [place] [id number] [place] MCHC (RBC) [Mass/Vol] 31.6 g/dL Normal 30.5-36.0 [facility] Comment on above: Order Comment: Specimen Type: BLOOD SPEC IMENOrdering Facility: [facility] Address: [address] [place] [address] Performed By: #### 5 7021-8 ####[facility] LABORATORYCLIA [id number] [place] [id number] [place] MCV (RBC) [Entitic vol] 93.1 fL Normal 80.0-100.0 [facility] Comment on above: Order Comment: Specimen Type: BLOOD SPEC IMENOrdering Facility: [facility] Address: [address] [place] [address] Performed By: #### 5 7021-8 ####[facility] LABORATORYCLIA [id number] [place] [id number] [place] Monocytes (Bld) [#/Vol] 1.36 10*3/uL High <0.87 [facility] Comment on above: Order Comment: Specimen Type: BLOOD SPEC IMENOrdering Facility: [facility] Address: [address] [place] [address] Performed By: #### 5 7021-8 ####[facility] LABORATORYCLIA [id number] [place] [address] [place] Monocytes/100 WBC (Bld) 9.4 % Normal [facility] Comment on above: Order Comment: Specimen Type: BLOOD SPEC IMENOrdering Facility: [facility] Address: [address] [place] [address] Performed By: #### 5 7021-8 ####[facility] LABORATORYCLIA [id number] [place] [id number] [place] Neutrophils (Bld) [#/Vol] 8.44 10*3/uL High 1.45-7.50 [facility] Comment on above: Order Comment: Specimen Type: BLOOD SPEC IMENOrdering Facility: [facility] Address: [address] [place] [address] Performed By: #### 5 7021-8 ####[facility] LABORATORYCLIA [id number] [place] [id number] [place] Neutrophils/100 WBC (Bld) 58.3 % Normal [facility] Comment on above: Order Comment: Specimen Type: BLOOD SPEC IMENOrdering Facility: [facility] Address: [address] [place] [address] Performed By: #### 5 7021-8 ####GEORGE LABORATORYCLIA [id number] [place] [id number] [place] Nucleated RBC (Bld) [#/Vol] 0.03 10*3/uL High <0.01 [facility] Comment on above: Order Comment: Specimen Type: BLOOD SPEC IMENOrdering Facility: [facility] Address: [address] [place] [address] Performed By: #### 5 7021-8 ####GEORGE LABORATORYCLIA [id number] [place] [id number] [place] Nucleated RBC/100 WBC (Bld) [Ratio] 0.2 /100 WBC Normal [facility] Comment on above: Order Comment: Specimen Type: BLOOD SPEC IMENOrdering Facility: [facility] Address: [address] [place] [address] Performed By: #### 5 7021-8 ####GEORGE LABORATORYCLIA [id number] [place] [id number] [place] Platelet mean volume (Bld) [Entitic vol] 9.5 fL Normal 9.0-12.7 [facility] Comment on above: Order Comment: Specimen Type: BLOOD SPEC IMENOrdering Facility: [facility] Address: [address] [place] [address] Performed By: #### 5 7021-8 ####GEORGE LABORATORYCLIA [id number] [place] [id number] [place] Platelets (Bld) [#/Vol] 499 10*3/uL High 150-400 [facility] Comment on above: Order Comment: Specimen Type: BLOOD SPEC IMENOrdering Facility: [facility] Address: [address] [place], [place] [address], [place] [address] Performed By: #### 5 7021-8 ####CONETOE LABORATORYCLIA [id number] [place] [id number] [place] RBC (Bld) [#/Vol] 4.04 10*6/uL Normal 3.90-5.20 [facility] Comment on above: Order Comment: Specimen Type: BLOOD SPEC IMENOrdering Facility: [facility] Address: [facility] [place] [address] Performed By: #### 5 7021-8 ####CONETOE LABORATORYCLIA [id number] [place] [id number] [place] WBC (Bld) [#/Vol] 14.45 10*3/uL High 3.70-11.00 [facility] Comment on above: Order Comment: Specimen Type: BLOOD SPEC IMENOrdering Facility: [facility] Address: [facility] [place] [address] Performed By: #### 5 7021-8 ####CONETOE LABORATORYCLIA [id number] [place] [id number] [facility] CONSULT PROGon 08-09-2023 CONSULT PROG HNO ID: [id number] Author: BUCKY FLORES APRN.AQUARIUM SPECIALIST Service: Pain Management Author Type: Nurse Practitioner [...] Please call with questions. SIGNATURE: Bucky Flores APRN.AQUARIUM SPECIALIST PAGER:[phone] DATE of SERVICE: August 09, 2023 TIME of SERVICE: 2:20 PM Normal [facility] Magnesium [facility] 08-09 Magnesium [Mass/Vol] 1.8 mg/dL Normal 1.7-2.3 [facility] Comment on above: Order Comment: Specimen Type: BLOOD SPEC IMENOrdering Facility: [facility] Address: [address] [place] [address] Performed By: #### 2 777-1, 34119-1, 15693-3 ####CONETOE LABORATORYCLIA [id number] [address] OF [facility] NURSING PROGon 08-09-2023 NURSING PROG HNO ID: [id number] Author: NAVDEEP VANCE RN Service: ? Author Type: Registered [...] LIP. Pt is ambulating in hallway. Normal [facility] Phosphate [Mass/Vol] 3.2 mg/dL Normal 2.7-4.8 [facility] Comment on above: Order Comment: Specimen Type: BLOOD SPEC IMENOrdering Facility: [facility] Address: [address] [place], [place] [address] Performed By: #### 2 777-1, , ####GEORGE LABORATORYCLIA [id number] [place] [id number] [place] Basic metabolic 2000 panelon 08-08-2023 Anion gap [Moles/Vol] 12 mmol/L Normal 9-18 [facility] Comment on above: Order Comment: Specimen Type: BLOOD SPEC IMENOrdering Facility: [facility] Address: [address] [place] [address] Performed By: #### 2 777-1, , ####GEORGE LABORATORYCLIA [id number] [place] [id number] [place] Calcium [Mass/Vol] 8.6 mg/dL Normal 8.5-10.2 [facility] Comment on above: Order Comment: Specimen Type: BLOOD SPEC IMENOrdering Facility: [facility] Address: [address] [place] [place] [id number] Performed By: #### 2 777-1, , ####GEORGE LABORATORYCLIA [id number] [place] [address] [place] Chloride [Moles/Vol] 105 mmol/L Normal 97-105 [facility] Comment on above: Order Comment: Specimen Type: BLOOD SPEC IMENOrdering Facility: [facility] Address: [address] [place] [place] [id number] Performed By: #### 2 777-1, , ####GEORGE LABORATORYCLIA [id number] [place] [id number] [place] CO2 [Moles/Vol] 21 mmol/L Low 22-30 [facility] Comment on above: Order Comment: Specimen Type: BLOOD SPEC IMENOrdering Facility: [facility] Address: [address] [place] [place] [id number] Performed By: #### 2 777-1, , 86469-6 ####GEORGE LABORATORYCLIA [id number] [address] STATES OF [facility] Creatinine [Mass/Vol] 0.58 mg/dL Normal 0.58-0.96 [facility] Comment on above: Order Comment: Specimen Type: BLOOD SPEC IMENOrdering Facility: [facility] Address: [address] [place] [address] Performed By: #### 2 777-1, , ####CONETOE LABORATORYCLIA [id number] [place] [id number] [facility] Creatinine and Glomerular filtration rate.predicted panel (S/P/Bld) 119 mL/min/1.73m??? Normal >=60 [facility] Comment on above: Order Comment: Specimen Type: BLOOD SPEC IMENOrdering Facility: [facility] Address: [address] [place] [address] Result Comment: Janet mated Glomerular Filtration Rate [...] GFR. Performed By: #### 2 777-1, , ####CONETOE LABORATORYCLIA [id number] [address] STATES OF [facility] Glucose [Mass/Vol] 97 mg/dL Normal 74-99 [facility] Comment on above: Order Comment: Specimen Type: BLOOD SPEC IMENOrdering Facility: [facility] Address: [address] [place] [address] Result Comment: The [place] Diabetes Association (ADA) provides guidance for cutoff [...] Standards of Medical Care in Diabetes 2016, [place] [employer]. Diabetes Care. 2016.39(Suppl 1). Performed By: #### 2 777-1, , ####GEORGE LABORATORYCLIA [id number] [place] [id number] [place] Potassium [Moles/Vol] 3.9 mmol/L Normal 3.7-5.1 [facility] Comment on above: Order Comment: Specimen Type: BLOOD SPEC IMENOrdering Facility: [facility] Address: [address] [place] [address] Performed By: #### 2 777-1, , ####[facility] LABORATORYCLIA [id number] [place] [id number] [place] Sodium [Moles/Vol] 138 mmol/L Normal 136-144 [facility] Comment on above: Order Comment: Specimen Type: BLOOD SPEC IMENOrdering Facility: [facility] Address: [address] [place] [address] Performed By: #### 2 777-1, , 41490-6 ####[facility] LABORATORYCLIA [id number] [place] [id number] [place] Urea nitrogen [Mass/Vol] 3 mg/dL Low 7-21 [facility] Comment on above: Order Comment: Specimen Type: BLOOD SPEC IMENOrdering Facility: [facility] Address: [address] [place] [address] Performed By: #### 2 777-1, , 86452-9 ####[facility] LABORATORYCLIA [id number] [place] [id number] [place] CBC W Auto Differential pane l (Bld)on 08-08-2023 Basophils (Bld) [#/Vol] 0.08 10*3/uL Normal <0.11 [facility] Comment on above: Order Comment: Specimen Type: BLOOD SPEC IMENOrdering Facility: [facility] Address: [address] [place] [address] Performed By: #### 5 7021-8 ####CONETOE LABORATORYCLIA [id number] [place] [address] [place] Basophils/100 WBC (Bld) 0.5 % Normal [facility] Comment on above: Order Comment: Specimen Type: BLOOD SPEC IMENOrdering Facility: [facility] Address: [address] [place] [address] Performed By: #### 5 7021-8 ####CONETOE LABORATORYCLIA [id number] [place] [address] [place] Differential cell count method Nom (Bld) Auto Normal [facility] Comment on above: Order Comment: Specimen Type: BLOOD SPEC IMENOrdering Facility: [facility] Address: [address] [place] [address] Performed By: #### 5 7021-8 ####[facility] LABORATORYCLIA [id number] [place] [address] [place] Eosinophils (Bld) [#/Vol] 0.70 10*3/uL High <0.46 [facility] Comment on above: Order Comment: Specimen Type: BLOOD SPEC IMENOrdering Facility: [facility] Address: [address] [place] [address] Performed By: #### 5 7021-8 ####[facility] LABORATORYCLIA [id number] [place] [id number] [place] Eosinophils/100 WBC (Bld) 4.7 % Normal [facility] Comment on above: Order Comment: Specimen Type: BLOOD SPEC IMENOrdering Facility: [facility] Address: [address] [place] [address] Performed By: #### 5 7021-8 ####CONETOE LABORATORYCLIA [id number] [place] [id number] [place] Erythrocyte distribution width (RBC) [Ratio] 14.2 % Normal 11.5-15.0 [facility] Comment on above: Order Comment: Specimen Type: BLOOD SPEC IMENOrdering Facility: [facility] Address: [address] [place] [address] Performed By: #### 5 7021-8 ####[facility] LABORATORYCLIA [id number] [place] [id number] [place] Hematocrit (Bld) [Volume fraction] 35.7 % Low 36.0-46.0 [facility] Comment on above: Order Comment: Specimen Type: BLOOD SPEC IMENOrdering Facility: [facility] Address: [address] [place] [address] Performed By: #### 5 7021-8 ####[facility] LABORATORYCLIA [id number] [place] [id number] [place] Hemoglobin (Bld) [Mass/Vol] 11.4 g/dL Low 11.5-15.5 [facility] Comment on above: Order Comment: Specimen Type: BLOOD SPEC IMENOrdering Facility: [facility] Address: [address] [place] [address] Performed By: #### 5 7021-8 ####[facility] LABORATORYCLIA [id number] [place] [address] [place] Immature granulocytes (Bld) [#/Vol] 0.06 10*3/uL Normal <0.10 [facility] Comment on above: Order Comment: Specimen Type: BLOOD SPEC IMENOrdering Facility: [facility] Address: [address] [place] [address] Performed By: #### 5 7021-8 ####[facility] LABORATORYCLIA [id number] [place] [id number] [place] Immature granulocytes/100 WBC (Bld) 0.4 % Normal [facility] Comment on above: Order Comment: Specimen Type: BLOOD SPEC IMENOrdering Facility: [facility] Address: [address] [place] [address] Performed By: #### 5 7021-8 ####[facility] LABORATORYCLIA [id number] [place] [id number] [place] Lymphocytes (Bld) [#/Vol] 3.44 10*3/uL Normal 1.00-4.00 [facility] Comment on above: Order Comment: Specimen Type: BLOOD SPEC IMENOrdering Facility: [facility] Address: [address] [place] [address] Performed By: #### 5 7021-8 ####[facility] LABORATORYCLIA [id number] [place] [address] [place] Lymphocytes/100 WBC (Bld) 22.9 % Normal [facility] Comment on above: Order Comment: Specimen Type: BLOOD SPEC IMENOrdering Facility: [facility] Address: [address] [place] [address] Performed By: #### 5 7021-8 ####[facility] LABORATORYCLIA [id number] [place] [address] [place] MCH (RBC) [Entitic mass] 29.6 pg Normal 26.0-34.0 [facility] Comment on above: Order Comment: Specimen Type: BLOOD SPEC IMENOrdering Facility: [facility] Address: [address] [place] [address] Performed By: #### 5 7021-8 ####[facility] LABORATORYCLIA [id number] [address] [place] MCHC (RBC) [Mass/Vol] 31.9 g/dL Normal 30.5-36.0 [facility] Comment on above: Order Comment: Specimen Type: BLOOD SPEC IMENOrdering Facility: [facility] Address: [address] [place] [address] Performed By: #### 5 7021-8 ####[facility] LABORATORYCLIA [id number] [place] [id number] [place] MCV (RBC) [Entitic vol] 92.7 fL Normal 80.0-100.0 [facility] Comment on above: Order Comment: Specimen Type: BLOOD SPEC IMENOrdering Facility: [facility] Address: [address] [place] [address] Performed By: #### 5 7021-8 ####[facility] LABORATORYCLIA [id number] [address] [place] Monocytes (Bld) [#/Vol] 1.42 10*3/uL High <0.87 [facility] Comment on above: Order Comment: Specimen Type: BLOOD SPEC IMENOrdering Facility: [facility] Address: [address] [place] [address] Performed By: #### 5 7021-8 ####GEORGE LABORATORYCLIA [id number] [place] [id number] [place] Monocytes/100 WBC (Bld) 9.4 % Normal [facility] Comment on above: Order Comment: Specimen Type: BLOOD SPEC IMENOrdering Facility: [facility] Address: [address] [place] [address] Performed By: #### 5 7021-8 ####GEORGE LABORATORYCLIA [id number] [place] [id number] [place] Neutrophils (Bld) [#/Vol] 9.33 10*3/uL High 1.45-7.50 [facility] Comment on above: Order Comment: Specimen Type: BLOOD SPEC IMENOrdering Facility: [facility] Address: [address] [place] [address] Performed By: #### 5 7021-8 ####GEORGE LABORATORYCLIA [id number] [place] [id number] [place] Neutrophils/100 WBC (Bld) 62.1 % Normal [facility] Comment on above: Order Comment: Specimen Type: BLOOD SPEC IMENOrdering Facility: [facility] Address: [address] [place] [address] Performed By: #### 5 7021-8 ####GEORGE LABORATORYCLIA [id number] [place] [id number] [place] Nucleated RBC (Bld) [#/Vol] 10*3/uL Normal <0.01 [facility] Comment on above: Order Comment: Specimen Type: BLOOD SPEC IMENOrdering Facility: [facility] Address: [address] [place] [address] Performed By: #### 5 7021-8 ####GEORGE LABORATORYCLIA [id number] [place] [id number] [place] Nucleated RBC/100 WBC (Bld) [Ratio] 0.0 /100 WBC Normal [facility] Comment on above: Order Comment: Specimen Type: BLOOD SPEC IMENOrdering Facility: [facility] Address: [address] [place] [address] Performed By: #### 5 7021-8 ####GEORGE LABORATORYCLIA [id number] [place] [id number] [place] Platelet mean volume (Bld) [Entitic vol] 9.8 fL Normal 9.0-12.7 [facility] Comment on above: Order Comment: Specimen Type: BLOOD SPEC IMENOrdering Facility: [facility] Address: [address] [place] [address] Performed By: #### 5 7021-8 ####[facility] LABORATORYCLIA [id number] [place] [address] [place] Platelets (Bld) [#/Vol] 457 10*3/uL High 150-400 [facility] Comment on above: Order Comment: Specimen Type: BLOOD SPEC IMENOrdering Facility: [facility] Address: [address] [place] [address] Performed By: #### 5 7021-8 ####[facility] LABORATORYCLIA [id number] [place] [id number] [place] RBC (Bld) [#/Vol] 3.85 10*6/uL Low 3.90-5.20 [facility] Comment on above: Order Comment: Specimen Type: BLOOD SPEC IMENOrdering Facility: [facility] Address: [address] [place] [address] Performed By: #### 5 7021-8 ####GEORGE LABORATORYCLIA [id number] [place] [id number] [place] WBC (Bld) [#/Vol] 15.03 10*3/uL High 3.70-11.00 [facility] Comment on above: Order Comment: Specimen Type: BLOOD SPEC IMENOrdering Facility: [facility] Address: [address] [place] [address] Performed By: #### 5 7021-8 ####GEORGE LABORATORYCLIA [id number] [address] [place] CONSULT PROGon 08-08-2023 CONSULT PROG HNO ID: [id number] Author: AUGUSTUS HERRERA PA-C Service: Pain Management Author Type: Physician [facility] Owner Type: Consult Progress Note Filed: 08/08/2023 10:26 [...] PLAN/Recs: Continue Bupi 0.0625%/Fent epidural analgesia at 8/15/ to promote comfort, mobility, and pulmonary toilet [...] PERTINENT ROS: ALLERGIES ALLERGIES Allergen Reactions Adhes. Yecv-Hovx-Hz* Rash Adhesive Tape-Silic* Rash Augmentin [Amoxicil* Diarrhea [...] Day of surgery MEDICATIONS: Epidural Medications and WINDOW DRAPER Settings Bupivacaine 0.0625% + Fentanyl 2 mcg/mL Basal rate: 8 mL/hr. Patient Demand Bolus: 4 mL. Lockout interval: 15 minutes. Patient received 6/16 doses in the last 4 hours. Additional medication(s) given: See below Anticoagulation therapy: Heparin 5000 units TID Last Dose given: 08/08 536 Allergy: ALLERGIES Allergen Reactions Adhes. Ewlx-Tfyd-Zs* Rash Adhesive Tape-Silic* Rash Augmentin [Amoxicil* Diarrhea [...] (CYMBALTA) 60 mg ORAL DAILY phenol 1 Martin (CHLORASEPTIC) 1 Martin MUCOUS MEMBRANE (TOPICAL MOUTH AND THROAT) q 2 H PRN cetirizine 10 mg tab(s) (ZYRTEC) 10 mg ORAL DAILY acetaminophen 1,000 mg tab(s) (TYLENOL) 1,000 mg ORAL q 6 H fentaNYL 50 mcg/mL 25 mcg injection (SUBLI (more content not included)... Normal [facility] Magnesium [facility] 08-08 Magnesium [Mass/Vol] 1.8 mg/dL Normal 1.7-2.3 [facility] Comment on above: Order Comment: Specimen Type: BLOOD SPEC IMENOrdering Facility: [facility] Address: [address] [place] [address] Performed By: #### 2 777-1, 25364-3, 42176-0 ####GEORGE LABORATORYCLIA [id number] [address] OF [facility] NURSING PROGon 08-08-2023 NURSING PROG HNO ID: [id number] Author: NAVDEEP VANCE RN Service: ? Author Type: Registered Nurse Type: Nursing Progress Note Filed: 08/08/2023 09:15 Note Text: Nursing Progress Note: Pt AANDO x 3. Abdomen is soft and tender. Upper transverse incision open to air with glue. Epidural infusing per MAR. Lungs diminished on RA. SR on tele. Pt up with 1 assist. Pt tolerating phase II bariatric diet. Normal [facility] [Mass/Vol] 3.2 mg/dL Normal 2.7-4.8 [facility] Comment on above: Order Comment: Specimen Type: BLOOD SPEC IMENOrdering Facility: [facility] Address: [address] [place] [address] Performed By: #### 2 777-1, 18088-0, 82579-8 ####GEORGE LABORATORYCLIA [id number] [address] STATES [facility] Urinalysis complete panel (U )on 08-08-2023 Bacteria LM.HPF (Urine sed) [#/Area] Rare Abnormal None Seen [facility] Comment on above: Order Comment: Specimen Type: URINE SPEC IMENOrdering Facility: [facility] Address: [address] [place] [address] Performed By: #### 2 4356-8 ####GEORGE LABORATORYCLIA [id number] [address] LABCLIA [id number] [place] [address] [place] Bilirubin Ql (U) Negative Normal Negative [facility] Comment on above: Order Comment: Specimen Type: URINE SPEC IMENOrdering Facility: [facility] Address: [address] [place] [address] Performed By: #### 2 4356-8 ####GEORGE LABORATORYCLIA [id number] [address] LABCLIA [id number] [address] [place] Clarity (Unsp spec) Turbid Abnormal Clear [facility] Comment on above: Order Comment: Specimen Type: URINE SPEC IMENOrdering Facility: [facility] Address: [address] [place] [address] Performed By: #### 2 4356-8 ####GEORGE LABORATORYCLIA [id number] [address] LABCLIA [id number] [address] [place] Color (U) Light [place] Abnormal Yellow [facility] Comment on above: Order Comment: Specimen Type: URINE SPEC IMENOrdering Facility: [facility] Address: [address] [place] [address] Performed By: #### 2 4356-8 ####GEORGE LABORATORYCLIA [id number] [address] LABCLIA [id number] [place] [address] [place] Epithelial cells LM.HPF (Urine sed) [#/Area] Moderate Normal [facility] Comment on above: Order Comment: Specimen Type: URINE SPEC IMENOrdering Facility: [facility] Address: [address] [place] [address] Performed By: #### 2 4356-8 ####GEORGE LABORATORYCLIA [id number] [address] LABCLIA [id number] [address] [place] Glucose Test strip (U) [Mass/Vol] Negative Normal Trace, Negative [facility] Comment on above: Order Comment: Specimen Type: URINE SPEC IMENOrdering Facility: [facility] Address: [address] [place] [address] Performed By: #### 2 4356-8 ####GEORGE LABORATORYCLIA [id number] [address] LABCLIA [id number] [place] [address] [place] Hemoglobin Ql (U) 3+ Abnormal Negative, Trace [facility] Comment on above: Order Comment: Specimen Type: URINE SPEC IMENOrdering Facility: [facility] Address: [address] [place] [address] Performed By: #### 2 4356-8 ####GEORGE LABORATORYCLIA [id number] [address] LABCLIA [id number] [place] [address] [place] Ketones Ql (U) 2+ Abnormal Negative, Trace [facility] Comment on above: Order Comment: Specimen Type: URINE SPEC IMENOrdering Facility: [facility] Address: [address] [place] [address] Performed By: #### 2 4356-8 ####[facility] LABORATORYCLIA [id number] [address] LABCLIA [id number] [address] Leukocyte esterase Test strip Ql (U) 250 Ko/uL Abnormal Negative, 25 Ko/uL [facility] Comment on above: Order Comment: Specimen Type: URINE SPEC IMENOrdering Facility: [facility] Address: [address] [place] [address] Performed By: #### 2 4356-8 ####CONETOE LABORATORYCLIA [id number] [address] LABCLIA [id number] [address] Nitrite Ql (U) Negative Normal Negative [facility] Comment on above: Order Comment: Specimen Type: URINE SPEC IMENOrdering Facility: [facility] Address: [address] [place] [address] Performed By: #### 2 4356-8 ####CONETOE LABORATORYCLIA [id number] [address] LABCLIA [id number] [address] [place] pH (U) 6.0 [pH] Normal 5.0-8.0 [facility] Comment on above: Order Comment: Specimen Type: URINE SPEC IMENOrdering Facility: [facility] Address: [address] [place] [address] Performed By: #### 2 4356-8 ####CONETOE LABORATORYCLIA [id number] [address] LABCLIA [id number] [address] [place] Protein (U) [Mass/Vol] 1+ Abnormal Trace, Negative [facility] Comment on above: Order Comment: Specimen Type: URINE SPEC IMENOrdering Facility: [facility] Address: [address] [place] [address] Performed By: #### 2 4356-8 ####CONETOE LABORATORYCLIA [id number] [address] LABCLIA [id number] [place] [address] [place] RBC LM.HPF (Urine sed) [#/Area] /[HPF] Abnormal 0-3 /HPF [facility] Comment on above: Order Comment: Specimen Type: URINE SPEC IMENOrdering Facility: [facility] Address: [address] [place] [address] Performed By: #### 2 4356-8 ####CONETOE LABORATORYCLIA [id number] [address] LABCLIA [id number] [address] [place] Specific gravity (U) [Rel density] 1.011 Normal 1.005-1.03 0 [facility] Comment on above: Order Comment: Specimen Type: URINE SPEC IMENOrdering Facility: [facility] Address: [address] [place] [address] Performed By: #### 2 4356-8 ####CONETOE LABORATORYCLIA [id number] [address] LABCLIA [id number] [address] [place] Urobilinogen Ql (U) Normal Normal Normal [facility] Comment on above: Order Comment: Specimen Type: URINE SPEC IMENOrdering Facility: [facility] Address: [address] [place] [address] Performed By: #### 2 4356-8 ####CONETOE LABORATORYCLIA [id number] [address] LABCLIA [id number] [place] [address] [place] WBC LM.HPF (Urine sed) [#/Area] /[HPF] Abnormal 0-5 /HPF [facility] Comment on above: Order Comment: Specimen Type: URINE SPEC IMENOrdering Facility: [facility] Address: [address] [place] [address] Performed By: #### 2 4356-8 ####CONETOE LABORATORYCLIA [id number] [address] LABCLIA [id number] [place] [address] [place] Urinalysis complete pnl [place] 08-08-2023 Urinalysis complete panel (U) COLOR: Light [place] CLARITY: Turbid GLUCOSE, URINE: Negative BILIRUBIN, URINE: Negative KETONES, URINE: 2+ SPECIFIC GRAVITY, UR: 1.011 HEMOGLOBIN/BLOOD, UR: 3+ PH, URINE: 6.0 PROTEIN, URINE: 1+ UROBILINOGEN: Normal NITRITES: Negative LEUKEST: 250 Ko/uL WBC, URINE: >25 /HPF RBC, URINE: >25 /HPF BACTERIA: Rare SQUAMOUS EPITHELIAL CELLS: Moderate ORGANISM ID: 1 50,000-<100,000 CFU/ml Mixed microbiota No further workup Normal [facility] Comment on above: Order Comment: Specimen Type: URINE SPEC IMENOrdering Facility: [facility] Address: [address] [place] [address] Performed By: #### 2 4356-8 ####CONETOE LABORATORYCLIA [id number] [address] LABCLIA [id number] [place] [address] [place] Basic metabolic 2000 panelon 08-07-2023 Anion gap [Moles/Vol] 12 mmol/L Normal 9-18 [facility] Comment on above: Order Comment: Specimen Type: BLOOD SPEC IMENOrdering Facility: [facility] Address: [address] [place] [address] Performed By: #### 1 9123-9, 43744-5, 2776-06 ####CONETOE LABORATORYCLIA [id number] [place] [id number] [place] Calcium [Mass/Vol] 8.4 mg/dL Low 8.5-10.2 [facility] Comment on above: Order Comment: Specimen Type: BLOOD SPEC IMENOrdering Facility: [facility] Address: [address] [place] [address] Performed By: #### 1 9123-9, 85143-6, 2776-06 ####[facility] LABORATORYCLIA [id number] [place] [id number] [place] Chloride [Moles/Vol] 105 mmol/L Normal 97-105 [facility] Comment on above: Order Comment: Specimen Type: BLOOD SPEC IMENOrdering Facility: [facility] Address: [address] [place] [address] Performed By: #### 1 91239, , 2776-06 ####CONETOE LABORATORYCLIA [id number] [place] [id number] [place] CO2 [Moles/Vol] 22 mmol/L Normal 22-30 [facility] Comment on above: Order Comment: Specimen Type: BLOOD SPEC IMENOrdering Facility: [facility] Address: [address] [place] [address] Performed By: #### 1 9123-9, , 2776-06 ####[facility] LABORATORYCLIA [id number] [place] [id number] [place] Creatinine [Mass/Vol] 0.61 mg/dL Normal 0.58-0.96 [facility] Comment on above: Order Comment: Specimen Type: BLOOD SPEC IMENOrdering Facility: [facility] Address: [address] [place] [address] Performed By: #### 1 9123-9, 49765-1, 2776-06 ####[facility] LABORATORYCLIA [id number] [place] [id number] [place] Creatinine and Glomerular filtration rate.predicted panel (S/P/Bld) 118 mL/min/1.73m??? Normal >=60 [facility] Comment on above: Order Comment: Specimen Type: BLOOD SPEC IMENOrdering Facility: [facility] Address: [address] [place] [address] Result Comment: Janet mated Glomerular Filtration Rate [...] actual GFR. Performed By: #### 1 9123-9, 62494-0, 2777- ####CONETOE LABORATORYCLIA [id number] [place] [address] [place] Glucose [Mass/Vol] 99 mg/dL Normal 74-99 [facility] Comment on above: Order Comment: Specimen Type: BLOOD SPEC IMENOrdering Facility: [facility] Address: [address] [place] [address] Result Comment: The [place] [employer] Association (ADA) provides guidance for cutoff [...] Standards of Medical Care in Diabetes 2016, [place] [employer]. Diabetes Care. 2016.39(Suppl 1). Performed By: #### 1 9123-9, 78817-3, 277- ####CONETOE LABORATORYCLIA [id number] [place] [id number] [place] Potassium [Moles/Vol] 3.7 mmol/L Normal 3.7-5.1 [facility] Comment on above: Order Comment: Specimen Type: BLOOD SPEC IMENOrdering Facility: [facility] Address: [address] [place], [place] [address] Performed By: #### 1 9123-9, 56175-1, 2777-1 ####[facility] LABORATORYCLIA [id number] [place] [id number] [place] [facility] Sodium [Moles/Vol] 139 mmol/L Normal 136-144 [facility] Comment on above: Order Comment: Specimen Type: BLOOD SPEC IMENOrdering Facility: [facility] Address: [address] [place] [address] Performed By: #### 1 9123-9, 13105-1, 2777-1 ####[facility] LABORATORYCLIA [id number] [place] [id number] [place] Urea nitrogen [Mass/Vol] 3 mg/dL Low 7-21 [facility] Comment on above: Order Comment: Specimen Type: BLOOD SPEC IMENOrdering Facility: [facility] Address: [address] [place] [address] Performed By: #### 1 9123-9, 22119-5, 2777- ####[facility] LABORATORYCLIA [id number] [place] [id number] [facility] CASE MANAGEMon 08-07-2023 CASE MANAGEM HNO ID: [id number] Author: MARK DIAMOND RN Service: ? Author Type: Registered Nurse Type: Care Mgt Progress Note Filed: 08/07/2023 09:33 Note Text: CARE MANAGEMENT WEEKEND PLANNING NOTE POSSIBLE DISCHARGE Date/Time: TBD Disposition: home w/ family support Transport: Car per pt arrangement Other Concerns: S/p Biliopancreatic diversion w/ duodenal switch. Await return of bowel function. On Phase 1 diet. Anticipate no skilled needs at [place]. Weekend Chemist Steroids Pager #: Peyman Pizano [phone] SIGNATURE: Mark Diamond RN PATIENT NAME: Susi Milesenship DATE: August 07, 2023 TIME: 9:29 AM PAGER/CONTACT #: [phone] Normal [facility] CBC W Auto Differential pane l (Bld)on 08-07-2023 Basophils (Bld) [#/Vol] 0.49 10*3/uL High <0.11 [facility] Comment on above: Order Comment: Specimen Type: BLOOD SPEC IMENOrdering Facility: [facility] Address: [address] [place] [address] Performed By: #### 5 7021-8 ####[facility] LABORATORYCLIA [id number] [place] [id number] [place] Basophils/100 WBC (Bld) 3.0 % Normal [facility] Comment on above: Order Comment: Specimen Type: BLOOD SPEC IMENOrdering Facility: [facility] Address: [address] [place] [address] Performed By: #### 5 7021-8 ####[facility] LABORATORYCLIA [id number] [address] Differential cell count method Nom (Bld) Manual Normal [facility] Comment on above: Order Comment: Specimen Type: BLOOD SPEC IMENOrdering Facility: [facility] Address: [address] [place] [address] Performed By: #### 5 7021-8 ####[facility] LABORATORYCLIA [id number] [address] [place] Eosinophils (Bld) [#/Vol] 0.00 10*3/uL Normal <0.46 [facility] Comment on above: Order Comment: Specimen Type: BLOOD SPEC IMENOrdering Facility: [facility] Address: [address] [place] [address] Performed By: #### 5 7021-8 ####GEORGE LABORATORYCLIA [id number] [place] [id number] [place] Eosinophils/100 WBC (Bld) 0.0 % Normal [facility] Comment on above: Order Comment: Specimen Type: BLOOD SPEC IMENOrdering Facility: [facility] Address: [address] [place] [address] Performed By: #### 5 7021-8 ####[facility] LABORATORYCLIA [id number] [place] [address] [place] Erythrocyte distribution width (RBC) [Ratio] 14.2 % Normal 11.5-15.0 [facility] Comment on above: Order Comment: Specimen Type: BLOOD SPEC IMENOrdering Facility: [facility] Address: [address] [place] [address] Performed By: #### 5 7021-8 ####GEORGE LABORATORYCLIA [id number] [place] [id number] [place] Hematocrit (Bld) [Volume fraction] 37.7 % Normal 36.0-46.0 [facility] Comment on above: Order Comment: Specimen Type: BLOOD SPEC IMENOrdering Facility: [facility] Address: [address] [place] [address] Performed By: #### 5 7021-8 ####[facility] LABORATORYCLIA [id number] [place] [address] [place] Hemoglobin (Bld) [Mass/Vol] 11.8 g/dL Normal 11.5-15.5 [facility] Comment on above: Order Comment: Specimen Type: BLOOD SPEC IMENOrdering Facility: [facility] Address: [address] [place] [address] Performed By: #### 5 7021-8 ####[facility] LABORATORYCLIA [id number] [place] [address] [place] Lymphocytes (Bld) [#/Vol] 4.43 10*3/uL High 1.00-4.00 [facility] Comment on above: Order Comment: Specimen Type: BLOOD SPEC IMENOrdering Facility: [facility] Address: [address] [place] [address] Performed By: #### 5 7021-8 ####GEORGE LABORATORYCLIA [id number] [place] [id number] [place] Lymphocytes/100 WBC (Bld) 27.0 % Normal [facility] Comment on above: Order Comment: Specimen Type: BLOOD SPEC IMENOrdering Facility: [facility] Address: [address] [place] [address] Performed By: #### 5 7021-8 ####GEORGE LABORATORYCLIA [id number] [address] [place] MCH (RBC) [Entitic mass] 29.4 pg Normal 26.0-34.0 [facility] Comment on above: Order Comment: Specimen Type: BLOOD SPEC IMENOrdering Facility: [facility] Address: [address] [place] [address] Performed By: #### 5 7021-8 ####[facility] LABORATORYCLIA [id number] [place] [id number] [place] MCHC (RBC) [Mass/Vol] 31.3 g/dL Normal 30.5-36.0 [facility] Comment on above: Order Comment: Specimen Type: BLOOD SPEC IMENOrdering Facility: [facility] Address: [address] [place] [address] Performed By: #### 5 7021-8 ####[facility] LABORATORYCLIA [id number] [place] [address] [place] MCV (RBC) [Entitic vol] 94.0 fL Normal 80.0-100.0 [facility] Comment on above: Order Comment: Specimen Type: BLOOD SPEC IMENOrdering Facility: [facility] Address: [address] [place] [address] Performed By: #### 5 7021-8 ####[facility] LABORATORYCLIA [id number] [place] [address] [place] Monocytes (Bld) [#/Vol] 1.48 10*3/uL High <0.87 [facility] Comment on above: Order Comment: Specimen Type: BLOOD SPEC IMENOrdering Facility: [facility] Address: [address] [place] [address] Performed By: #### 5 7021-8 ####[facility] LABORATORYCLIA [id number] [address] [place] Monocytes/100 WBC (Bld) 9.0 % Normal [facility] Comment on above: Order Comment: Specimen Type: BLOOD SPEC IMENOrdering Facility: [facility] Address: [address] [place] [address] Performed By: #### 5 7021-8 ####GEORGE LABORATORYCLIA [id number] [place] [id number] [place] Neutrophils (Bld) [#/Vol] 10.00 10*3/uL High 1.45-7.50 [facility] Comment on above: Order Comment: Specimen Type: BLOOD SPEC IMENOrdering Facility: [facility] Address: [address] [place] [address] Performed By: #### 5 7021-8 ####[facility] LABORATORYCLIA [id number] [place] [id number] [place] Neutrophils/100 WBC (Bld) 61.0 % Normal [facility] Comment on above: Order Comment: Specimen Type: BLOOD SPEC IMENOrdering Facility: [facility] Address: [address] [place] [address] Performed By: #### 5 7021-8 ####GEORGE LABORATORYCLIA [id number] [place] [id number] [place] Nucleated RBC (Bld) [#/Vol] 10*3/uL Normal <0.01 [facility] Comment on above: Order Comment: Specimen Type: BLOOD SPEC IMENOrdering Facility: [facility] Address: [address] [place] [address] Performed By: #### 5 7021-8 ####GEORGE LABORATORYCLIA [id number] [place] [id number] [place] Nucleated RBC/100 WBC (Bld) [Ratio] 0.0 /100 WBC Normal [facility] Comment on above: Order Comment: Specimen Type: BLOOD SPEC IMENOrdering Facility: [facility] Address: [address] [place] [address] Performed By: #### 5 7021-8 ####GEORGE LABORATORYCLIA [id number] [place] [id number] [place] Platelet mean volume (Bld) [Entitic vol] 9.3 fL Normal 9.0-12.7 [facility] Comment on above: Order Comment: Specimen Type: BLOOD SPEC IMENOrdering Facility: [facility] Address: [address] [place] [address] Performed By: #### 5 7021-8 ####CONETOE LABORATORYCLIA [id number] [place] [id number] [place] Platelets (Bld) [#/Vol] 409 10*3/uL High 150-400 [facility] Comment on above: Order Comment: Specimen Type: BLOOD SPEC IMENOrdering Facility: [facility] Address: [address] [place] [address] Performed By: #### 5 7021-8 ####CONETOE LABORATORYCLIA [id number] [place] [id number] [place] Platelets Estimate (Bld) [#/Vol] Increased Normal [facility] Comment on above: Order Comment: Specimen Type: BLOOD SPEC IMENOrdering Facility: [facility] Address: [address] [place] [address] Performed By: #### 5 7021-8 ####CONETOE LABORATORYCLIA [id number] [place] [id number] [place] RBC (Bld) [#/Vol] 4.01 10*6/uL Normal 3.90-5.20 [facility] Comment on above: Order Comment: Specimen Type: BLOOD SPEC IMENOrdering Facility: [facility] Address: [address] [place] [address] Performed By: #### 5 7021-8 ####CONETOE LABORATORYCLIA [id number] [place] [id number] [place] RED CELL MORPH Reviewed: unremarkable Normal [facility] Comment on above: Order Comment: Specimen Type: BLOOD SPEC IMENOrdering Facility: [facility] Address: [address] [place] [address] Performed By: #### 5 7021-8 ####CONETOE LABORATORYCLIA [id number] [place] [id number] [place] WBC (Bld) [#/Vol] 16.39 10*3/uL High 3.70-11.00 [facility] Comment on above: Order Comment: Specimen Type: BLOOD SPEC IMENOrdering Facility: [facility] Address: [address] [place] [address] Performed By: #### 5 7021-8 ####[facility] [id number] [place] [id number] [place] CONSULT PROGon 08-07-2023 CONSULT PROG HNO ID: [id number] Author: BUCKY FLORES APRN.AQUARIUM SPECIALIST Service: Pain Management Author Type: Nurse Practitioner [...] PLAN/Recs: Continue Bupi 0.0625%/Fent epidural analgesia at 84/15/ to promote comfort, mobility, and pulmonary toilet [...] OBJECTIVE PERTINENT ROS: ALLERGIES Allergen Reactions Adhes. Jzdn-Rlxb-Gg* Rash Adhesive Tape-Silic* Rash Augmentin [Amoxicil* Diarrhea [...] Day of surgery MEDICATIONS: Epidural Medications and WINDOW DRAPER Settings Bupivacaine 0.0625% + Fentanyl 2 mcg/mL [...] (CYMBALTA) 60 mg ORAL DAILY phenol 1 Martin (CHLORASEPTIC) 1 Martin MUCOUS MEMBRANE (TOPICAL MOUTH AND THROAT) q [...] INTRAVENOUS CON (more content not included)... Normal [facility] Magnesium SerPl-ncon 08-07 Magnesium [Mass/Vol] 1.9 mg/dL Normal 1.7-2.3 [facility] Comment on above: Order Comment: Specimen Type: BLOOD SPEC IMENOrdering Facility: [facility] Address: [address] [place] [address] Performed By: #### 1 9123-9, 41790-6, 2777-1 ####CONETOE LABORATORYCLIA [id number] [place] [address] [place] Phosphate SerPl-mCncon 08-07 Phosphate [Mass/Vol] 2.3 mg/dL Low 2.7-4.8 [facility] Comment on above: Order Comment: Specimen Type: BLOOD SPEC IMENOrdering Facility: [facility] Address: [address] [place] [address] Performed By: #### 1 9123-9, 04873-2, 2777-1 ####CONETOE LABORATORYCLIA [id number] [place] [id number] [place] Basic metabolic 2000 panelon 08-06-2023 Anion gap [Moles/Vol] 12 mmol/L Normal 9-18 [facility] Comment on above: Order Comment: Specimen Type: BLOOD SPEC IMENOrdering Facility: [facility] Address: [address] [place] [address] Performed By: #### 2 4321-2, , 2776-06 ####[facility] LABORATORYCLIA [id number] [place] [id number] [place] Calcium [Mass/Vol] 8.0 mg/dL Low 8.5-10.2 [facility] Comment on above: Order Comment: Specimen Type: BLOOD SPEC IMENOrdering Facility: [facility] Address: [address] [place] [address] Performed By: #### 2 4321-2, , 2776-06 ####[facility] LABORATORYCLIA [id number] [place] [id number] [place] Chloride [Moles/Vol] 106 mmol/L High 97-105 [facility] Comment on above: Order Comment: Specimen Type: BLOOD SPEC IMENOrdering Facility: [facility] Address: [address] [place] [address] Performed By: #### 2 4321-2, , 2776-06 ####[facility] LABORATORYCLIA [id number] [place] [id number] [place] CO2 [Moles/Vol] 23 mmol/L Normal 22-30 [facility] Comment on above: Order Comment: Specimen Type: BLOOD SPEC IMENOrdering Facility: [facility] Address: [address] [place] [address] Performed By: #### 2 4321-2, , 2776-06 ####[facility] LABORATORYCLIA [id number] [place] [id number] [place] Creatinine [Mass/Vol] 0.69 mg/dL Normal 0.58-0.96 [facility] Comment on above: Order Comment: Specimen Type: BLOOD SPEC IMENOrdering Facility: [facility] Address: [address] [place] [address] Performed By: #### 2 4321-2, 30156-9, 7- ####CONETOE LABORATORYCLIA [id number] [place] [id number] [place] Creatinine and Glomerular filtration rate.predicted panel (S/P/Bld) 114 mL/min/1.73m??? Normal >=60 [facility] Comment on above: Order Comment: Specimen Type: BLOOD SPEC IMENOrdering Facility: [facility] Address: [address] [place] [address] Result Comment: Janet mated Glomerular Filtration Rate [...] Performed By: #### 2 4321-2, , 2776-06 ####CONETOE LABORATORYCLIA [id number] [place] [id number] [place] Glucose [Mass/Vol] 83 mg/dL Normal 74-99 [facility] Comment on above: Order Comment: Specimen Type: BLOOD SPEC IMENOrdering Facility: [facility] Address: [address] [place] [address] Result Comment: The [place] [employer] (ADA) provides guidance for cutoff [...] Standards of Medical Care in Diabetes 2016, [place] [employer]. Diabetes Care. 2016.39(Suppl 1). Performed By: #### 2 4321-2, , 2776-06 ####CONET[facility] LABORATORYCLIA [id number] [place] [id number] [place] Potassium [Moles/Vol] 3.8 mmol/L Normal 3.7-5.1 [facility] Comment on above: Order Comment: Specimen Type: BLOOD SPEC IMENOrdering Facility: [facility] Address: [address] [place] [address] Performed By: #### 2 4321-2, , 2776-06 ####CONET[facility] LABORATORYCLIA [id number] [place] [id number] [place] Sodium [Moles/Vol] 141 mmol/L Normal 136-144 [facility] Comment on above: Order Comment: Specimen Type: BLOOD SPEC IMENOrdering Facility: [facility] Address: [address] [place] [address] Performed By: #### 2 4321-2, , 2776-06 ####CONET[facility] LABORATORYCLIA [id number] [place] [id number] [place] Urea nitrogen [Mass/Vol] 5 mg/dL Low 7-21 [facility] Comment on above: Order Comment: Specimen Type: BLOOD SPEC IMENOrdering Facility: [facility] Address: [address] [place] [address] Performed By: #### 2 4321-2, , 2776-06 ####CONET[facility] LABORATORYCLIA [id number] [place] [id number] [place] CBC W Auto Differential pane l (Bld)on 08-06-2023 Basophils (Bld) [#/Vol] 0.37 10*3/uL High <0.11 [facility] Comment on above: Order Comment: Specimen Type: BLOOD SPEC IMENOrdering Facility: [facility] Address: [address] [place] [address] Performed By: #### 5 7021-8 ####CONET[facility] LABORATORYCLIA [id number] [place] [id number] [place] Basophils/100 WBC (Bld) 2.0 % Normal [facility] Comment on above: Order Comment: Specimen Type: BLOOD SPEC IMENOrdering Facility: [facility] Address: [address] [place] [address] Performed By: #### 5 7021-8 ####[facility] LABORATORYCLIA [id number] [place] [id number] [place] Differential cell count method Nom (Bld) Manual Normal [facility] Comment on above: Order Comment: Specimen Type: BLOOD SPEC IMENOrdering Facility: [facility] Address: [address] [place] [address] Performed By: #### 5 7021-8 ####[facility] LABORATORYCLIA [id number] [address] [place] Eosinophils (Bld) [#/Vol] 0.74 10*3/uL High <0.46 [facility] Comment on above: Order Comment: Specimen Type: BLOOD SPEC IMENOrdering Facility: [facility] Address: [address] [place] [address] Performed By: #### 5 7021-8 ####[facility] LABORATORYCLIA [id number] [address] [place] Eosinophils/100 WBC (Bld) 4.0 % Normal [facility] Comment on above: Order Comment: Specimen Type: BLOOD SPEC IMENOrdering Facility: [facility] Address: [address] [place] [address] Performed By: #### 5 7021-8 ####[facility] LABORATORYCLIA [id number] [place] [address] [place] Erythrocyte distribution width (RBC) [Ratio] 14.6 % Normal 11.5-15.0 [facility] Comment on above: Order Comment: Specimen Type: BLOOD SPEC IMENOrdering Facility: [facility] Address: [address] [place] [address] Performed By: #### 5 7021-8 ####[facility] LABORATORYCLIA [id number] [place] [address] [place] Hematocrit (Bld) [Volume fraction] 38.0 % Normal 36.0-46.0 [facility] Comment on above: Order Comment: Specimen Type: BLOOD SPEC IMENOrdering Facility: [facility] Address: [address] [place] [address] Performed By: #### 5 7021-8 ####[facility] LABORATORYCLIA [id number] [place] [id number] [place] Hemoglobin (Bld) [Mass/Vol] 11.7 g/dL Normal 11.5-15.5 [facility] Comment on above: Order Comment: Specimen Type: BLOOD SPEC IMENOrdering Facility: [facility] Address: [address] [place] [address] Performed By: #### 5 7021-8 ####[facility] LABORATORYCLIA [id number] [place] [address] [place] Lymphocytes (Bld) [#/Vol] 4.05 10*3/uL High 1.00-4.00 [facility] Comment on above: Order Comment: Specimen Type: BLOOD SPEC IMENOrdering Facility: [facility] Address: [address] [place] [address] Performed By: #### 5 7021-8 ####[facility] LABORATORYCLIA [id number] [address] [place] Lymphocytes/100 WBC (Bld) 22.0 % Normal [facility] Comment on above: Order Comment: Specimen Type: BLOOD SPEC IMENOrdering Facility: [facility] Address: [address] [place] [address] Performed By: #### 5 7021-8 ####[facility] LABORATORYCLIA [id number] [place] [id number] [place] MCH (RBC) [Entitic mass] 29.5 pg Normal 26.0-34.0 [facility] Comment on above: Order Comment: Specimen Type: BLOOD SPEC IMENOrdering Facility: [facility] Address: [address] [place] [address] Performed By: #### 5 7021-8 ####[facility] LABORATORYCLIA [id number] [place] [id number] [place] MCHC (RBC) [Mass/Vol] 30.8 g/dL Normal 30.5-36.0 [facility] Comment on above: Order Comment: Specimen Type: BLOOD SPEC IMENOrdering Facility: [facility] Address: [address] [place] [address] Performed By: #### 5 7021-8 ####[facility] LABORATORYCLIA [id number] [place] [id number] [place] MCV (RBC) [Entitic vol] 96.0 fL Normal 80.0-100.0 [facility] Comment on above: Order Comment: Specimen Type: BLOOD SPEC IMENOrdering Facility: [facility] Address: [address] [place] [address] Performed By: #### 5 7021-8 ####[facility] LABORATORYCLIA [id number] [place] [id number] [place] Monocytes (Bld) [#/Vol] 1.84 10*3/uL High <0.87 [facility] Comment on above: Order Comment: Specimen Type: BLOOD SPEC IMENOrdering Facility: [facility] Address: [address] [place] [address] Performed By: #### 5 7021-8 ####[facility] LABORATORYCLIA [id number] [address] [place] Monocytes/100 WBC (Bld) 10.0 % Normal [facility] Comment on above: Order Comment: Specimen Type: BLOOD SPEC IMENOrdering Facility: [facility] Address: [address] [place] [address] Performed By: #### 5 7021-8 ####[facility] LABORATORYCLIA [id number] [place] [id number] [place] Neutrophils (Bld) [#/Vol] 11.42 10*3/uL High 1.45-7.50 [facility] Comment on above: Order Comment: Specimen Type: BLOOD SPEC IMENOrdering Facility: [facility] Address: [address] [place] [address] Performed By: #### 5 7021-8 ####[facility] LABORATORYCLIA [id number] [place] [id number] [place] Neutrophils/100 WBC (Bld) 62.0 % Normal [facility] Comment on above: Order Comment: Specimen Type: BLOOD SPEC IMENOrdering Facility: [facility] Address: [address] [place] [address] Performed By: #### 5 7021-8 ####[facility] LABORATORYCLIA [id number] [place] [id number] [place] Nucleated RBC (Bld) [#/Vol] 10*3/uL Normal <0.01 [facility] Comment on above: Order Comment: Specimen Type: BLOOD SPEC IMENOrdering Facility: [facility] Address: [address] [place] [address] Performed By: #### 5 7021-8 ####[facility] LABORATORYCLIA [id number] [place] [id number] [place] Nucleated RBC/100 WBC (Bld) [Ratio] 0.0 /100 WBC Normal [facility] Comment on above: Order Comment: Specimen Type: BLOOD SPEC IMENOrdering Facility: [facility] Address: [address] [place] [address] Performed By: #### 5 7021-8 ####[facility] LABORATORYCLIA [id number] [place] [address] [place] Platelet mean volume (Bld) [Entitic vol] 9.4 fL Normal 9.0-12.7 [facility] Comment on above: Order Comment: Specimen Type: BLOOD SPEC IMENOrdering Facility: [facility] Address: [address] [place] [address] Performed By: #### 5 7021-8 ####[facility] LABORATORYCLIA [id number] [place] [id number] [place] Platelets (Bld) [#/Vol] 415 10*3/uL High 150-400 [facility] Comment on above: Order Comment: Specimen Type: BLOOD SPEC IMENOrdering Facility: [facility] Address: [address] [place] [address], [place] [address] Performed By: #### 5 7021-8 ####CON[facility] LABORATORYCLIA [id number] [place] [id number] [facility] [place] Platelets Estimate (Bld) [#/Vol] Increased Normal [facility] Comment on above: Order Comment: Specimen Type: BLOOD SPEC IMENOrdering Facility: [facility] Address: [address] [place] [address] Performed By: #### 5 7021-8 ####CONET[facility] LABORATORYCLIA [id number] [place] [id number] [facility] [place] RBC (Bld) [#/Vol] 3.96 10*6/uL Normal 3.90-5.20 [facility] Comment on above: Order Comment: Specimen Type: BLOOD SPEC IMENOrdering Facility: [facility] Address: [address] [place] [address] Performed By: #### 5 7021-8 ####CONET[facility] LABORATORYCLIA [id number] [place] [id number] [facility] [place]ORPH Reviewed: unremarkable Normal [facility] Comment on above: Order Comment: Specimen Type: BLOOD SPEC IMENOrdering Facility: [facility] Address: [address] [place] [address] Performed By: #### 5 7021-8 ####CONET[facility] LABORATORYCLIA [id number] [place] [id number] [facility] [place] WBC (Bld) [#/Vol] 18.42 10*3/uL High 3.70-11.00 [facility] Comment on above: Order Comment: Specimen Type: BLOOD SPEC IMENOrdering Facility: [facility] Address: [address] [place] [address] Performed By: #### 5 7021-8 ####CONETOE LABORATORYCLIA [id number] [place] [id number] [facility] CONSULT PROGon 08-06-2023 CONSULT PROG HNO ID: [id number] Author: BUCKY FLORES APRN.AQUARIUM SPECIALIST Service: Pain Management Author Type: Nurse Practitioner [...] OBJECTIVE PERTINENT ROS: ALLERGIES Allergen Reactions Adhes. Ttzv-Zaru-Uj* Rash Adhesive Tape-Silic* Rash Augmentin [Amoxicil* Diarrhea [...] Day of surgery MEDICATIONS: Epidural Medications and WINDOW DRAPER Settings Bupivacaine 0.0625% + Fentanyl 2 mcg/mL [...] (CYMBALTA) 60 mg ORAL DAILY phenol 1 Martin (CHLORASEPTIC) 1 Martin MUCOUS MEMBRANE (TOPICAL MOUTH AND THROAT) q [...] senna-docusate 8.6-50 (more content not included)... Normal [facility] Magnesium [Mass/Vol] 2.0 mg/dL Normal 1.7-2.3 [facility] Comment on above: Order Comment: Specimen Type: BLOOD SPEC IMENOrdering Facility: [facility] Address: [address] [place] [address] Performed By: #### 2 4321-2, 48487-8, 2777-1 ####[facility] LABORATORYCLIA [id number] [place] [id number] [facility] NURSING PROGon 08-06-2023 NURSING PROG HNO ID: [id number] Author: BUCKY JOSHI RN Service: Nursing Author Type: Registered Nurse Type: Nursing Progress Note Filed: 08/06/2023 18:19 Note Text: Other: 1410: Pt ambulated POD with standby assist. HR 150-170s at this time, returned to normal at rest. Josee MARTINEZ on unit and aware. Normal [facility] Phosphate SerPl-ncon 08-06 Phosphate [Mass/Vol] 3.0 mg/dL Normal 2.7-4.8 [facility] Comment on above: Order Comment: Specimen Type: BLOOD SPEC IMENOrdering Facility: [facility] Address: [address] [place] [address] Performed By: #### 2 4321-2, 52973-6, 2777-1 ####[facility] LABORATORYCLIA [id number] [place] [id number] [place] Basic metabolic 2000 panelon 08-05-2023 Anion gap [Moles/Vol] 10 mmol/L Normal 9-18 [facility] Comment on above: Order Comment: Specimen Type: BLOOD SPEC IMENOrdering Facility: [facility] Address: [address] [place] [address] Performed By: #### 2 4321-2, HSTNT ####[facility] LABORATORYCLIA [id number] [place] [id number] [place] Calcium [Mass/Vol] 7.8 mg/dL Low 8.5-10.2 [facility] Comment on above: Order Comment: Specimen Type: BLOOD SPEC IMENOrdering Facility: [facility] Address: [address] [place] [address] Performed By: #### 2 4321-2, HSTNT ####[facility] LABORATORYCLIA [id number] [place] [address] [place] Chloride [Moles/Vol] 105 mmol/L Normal 97-105 [facility] Comment on above: Order Comment: Specimen Type: BLOOD SPEC IMENOrdering Facility: [facility] Address: [address] [place] [address] Performed By: #### 2 4321-2, HSTNT ####[facility] LABORATORYCLIA [id number] [place] [id number] [place] CO2 [Moles/Vol] 24 mmol/L Normal 22-30 [facility] Comment on above: Order Comment: Specimen Type: BLOOD SPEC IMENOrdering Facility: [facility] Address: [address] [place] [address] Performed By: #### 2 4321-2, HSTNT ####[facility] LABORATORYCLIA [id number] [place] [id number] [place] Creatinine [Mass/Vol] 0.77 mg/dL Normal 0.58-0.96 [facility] Comment on above: Order Comment: Specimen Type: BLOOD SPEC IMENOrdering Facility: [facility] Address: [address] [place] [address] Performed By: #### 2 4321-2, HSTNT ####[facility] LABORATORYCLIA [id number] [place] [id number] [place] Creatinine and Glomerular filtration rate.predicted panel (S/P/Bld) 101 mL/min/1.73m??? Normal >=60 [facility] Comment on above: Order Comment: Specimen Type: BLOOD SPEC IMENOrdering Facility: [facility] Address: [address] [place] [address] Result Comment: Janet mated Glomerular Filtration Rate [...] GFR. Performed By: #### 2 4321-2, HSTNT ####[facility] LABORATORYCLIA [id number] [place] [id number] [place] Glucose [Mass/Vol] 93 mg/dL Normal 74-99 [facility] Comment on above: Order Comment: Specimen Type: BLOOD SPEC IMENOrdering Facility: [facility] Address: [address] [place] [address] Result Comment: The [place] [employer] (ADA) provides guidance for cutoff [...] Standards of Medical Care in Diabetes 2016, [place] [employer]. Diabetes Care. 2016.39(Suppl 1). Performed By: #### 2 4321-2, HSTNT ####[facility] LABORATORYCLIA [id number] [place] [address] [place] Potassium [Moles/Vol] 3.4 mmol/L Low 3.7-5.1 [facility] Comment on above: Order Comment: Specimen Type: BLOOD SPEC IMENOrdering Facility: [facility] Address: [address] [place] [address] Performed By: #### 2 4321-2, HSTNT ####[facility] LABORATORYCLIA [id number] [place] [address] [place] Sodium [Moles/Vol] 139 mmol/L Normal 136-144 [facility] Comment on above: Order Comment: Specimen Type: BLOOD SPEC IMENOrdering Facility: [facility] Address: [address] [place] [address] Performed By: #### 2 4321-2, HSTNT ####[facility] LABORATORYCLIA [id number] [place] [address] [place] Urea nitrogen [Mass/Vol] 7 mg/dL Normal 7-21 [facility] Comment on above: Order Comment: Specimen Type: BLOOD SPEC IMENOrdering Facility: [facility] Address: [address] [place] [address] Performed By: #### 2 4321-2, HSTNT ####[facility] LABORATORYCLIA [id number] [place] [address] [place] CBC W Auto Differential pane l (Bld)on 08-05-2023 Basophils (Bld) [#/Vol] 0.15 10*3/uL High <0.11 [facility] Comment on above: Order Comment: Specimen Type: BLOOD SPEC IMENOrdering Facility: [facility] Address: [address] [place] [address] Performed By: #### 5 7021-8 ####[facility] LABORATORYCLIA [id number] [place] [address] [place] Basophils/100 WBC (Bld) 1.0 % Normal [facility] Comment on above: Order Comment: Specimen Type: BLOOD SPEC IMENOrdering Facility: [facility] Address: [address] [place] [address] Performed By: #### 5 7021-8 ####[facility] LABORATORYCLIA [id number] [place] [id number] [place] Differential cell count method Nom (Bld) Manual Normal [facility] Comment on above: Order Comment: Specimen Type: BLOOD SPEC IMENOrdering Facility: [facility] Address: [address] [place] [address] Performed By: #### 5 7021-8 ####[facility] LABORATORYCLIA [id number] [place] [address] [place] Eosinophils (Bld) [#/Vol] 0.15 10*3/uL Normal <0.46 [facility] Comment on above: Order Comment: Specimen Type: BLOOD SPEC IMENOrdering Facility: [facility] Address: [address] [place] [address] Performed By: #### 5 7021-8 ####[facility] LABORATORYCLIA [id number] [place] [address] [place] Eosinophils/100 WBC (Bld) 1.0 % Normal [facility] Comment on above: Order Comment: Specimen Type: BLOOD SPEC IMENOrdering Facility: [facility] Address: [address] [place] [address] Performed By: #### 5 7021-8 ####[facility] LABORATORYCLIA [id number] [address] [place] Erythrocyte distribution width (RBC) [Ratio] 14.6 % Normal 11.5-15.0 [facility] Comment on above: Order Comment: Specimen Type: BLOOD SPEC IMENOrdering Facility: [facility] Address: [address] [place] [address] Performed By: #### 5 7021-8 ####[facility] LABORATORYCLIA [id number] [address] [place] Hematocrit (Bld) [Volume fraction] 38.5 % Normal 36.0-46.0 [facility] Comment on above: Order Comment: Specimen Type: BLOOD SPEC IMENOrdering Facility: [facility] Address: [address] [place] [address], [place] [address] Performed By: #### 5 7021-8 ####[facility] LABORATORYCLIA [id number] [place] [id number] [place] Hemoglobin (Bld) [Mass/Vol] 11.9 g/dL Normal 11.5-15.5 [facility] Comment on above: Order Comment: Specimen Type: BLOOD SPEC IMENOrdering Facility: [facility] Address: [address] [place] [address] Performed By: #### 5 7021-8 ####[facility] LABORATORYCLIA [id number] [place] [address] [place] Lymphocytes (Bld) [#/Vol] 2.79 10*3/uL Normal 1.00-4.00 [facility] Comment on above: Order Comment: Specimen Type: BLOOD SPEC IMENOrdering Facility: [facility] Address: [address] [place] [address] Performed By: #### 5 7021-8 ####[facility] LABORATORYCLIA [id number] [place] [address] [place] Lymphocytes/100 WBC (Bld) 19.0 % Normal [facility] Comment on above: Order Comment: Specimen Type: BLOOD SPEC IMENOrdering Facility: [facility] Address: [address] [place] [address] Performed By: #### 5 7021-8 ####[facility] LABORATORYCLIA [id number] [place] [id number] [place] MCH (RBC) [Entitic mass] 29.2 pg Normal 26.0-34.0 [facility] Comment on above: Order Comment: Specimen Type: BLOOD SPEC IMENOrdering Facility: [facility] Address: [address] [place] [address] Performed By: #### 5 7021-8 ####[facility] LABORATORYCLIA [id number] [place] [id number] [place] MCHC (RBC) [Mass/Vol] 30.9 g/dL Normal 30.5-36.0 [facility] Comment on above: Order Comment: Specimen Type: BLOOD SPEC IMENOrdering Facility: [facility] Address: [address] [place] [address] Performed By: #### 5 7021-8 ####GEOR[facility] LABORATORYCLIA [id number] [place] [id number] [place] MCV (RBC) [Entitic vol] 94.6 fL Normal 80.0-100.0 [facility] Comment on above: Order Comment: Specimen Type: BLOOD SPEC IMENOrdering Facility: [facility] Address: [address] [place] [address] Performed By: #### 5 7021-8 ####GEOR[facility] LABORATORYCLIA [id number] [place] [id number] [place] Monocytes (Bld) [#/Vol] 0.59 10*3/uL Normal <0.87 [facility] Comment on above: Order Comment: Specimen Type: BLOOD SPEC IMENOrdering Facility: [facility] Address: [address] [place] [address] Performed By: #### 5 7021-8 ####[facility] LABORATORYCLIA [id number] [place] [id number] [place] Monocytes/100 WBC (Bld) 4.0 % Normal [facility] Comment on above: Order Comment: Specimen Type: BLOOD SPEC IMENOrdering Facility: [facility] Address: [address] [place] [address] Performed By: #### 5 7021-8 ####[facility]OR[facility] LABORATORYCLIA [id number] [place] [id number] [place] Neutrophils (Bld) [#/Vol] 11.00 10*3/uL High 1.45-7.50 [facility] Comment on above: Order Comment: Specimen Type: BLOOD SPEC IMENOrdering Facility: [facility] Address: [address] [place] [address] Performed By: #### 5 7021-8 ####GEOR[facility] LABORATORYCLIA [id number] [place] [id number] [place] Neutrophils/100 WBC (Bld) 75.0 % Normal [facility] Comment on above: Order Comment: Specimen Type: BLOOD SPEC IMENOrdering Facility: [facility] Address: [address] [place] [address] Performed By: #### 5 7021-8 ####[facility] LABORATORYCLIA [id number] [place] [address] [place] Nucleated RBC (Bld) [#/Vol] 10*3/uL Normal <0.01 [facility] Comment on above: Order Comment: Specimen Type: BLOOD SPEC IMENOrdering Facility: [facility] Address: [address] [place] [address] Performed By: #### 5 7021-8 ####CONETOE LABORATORYCLIA [id number] [place] [address] [place] Nucleated RBC/100 WBC (Bld) [Ratio] 0.0 /100 WBC Normal [facility] Comment on above: Order Comment: Specimen Type: BLOOD SPEC IMENOrdering Facility: [facility] Address: [address] [place] [address] Performed By: #### 5 7021-8 ####CONETOE LABORATORYCLIA [id number] [place] [address] [place] Platelet mean volume (Bld) [Entitic vol] 9.2 fL Normal 9.0-12.7 [facility] Comment on above: Order Comment: Specimen Type: BLOOD SPEC IMENOrdering Facility: [facility] Address: [address] [place] [address] Performed By: #### 5 7021-8 ####CONET[facility] LABORATORYCLIA [id number] [place] [id number] [place] Platelets (Bld) [#/Vol] 431 10*3/uL High 150-400 [facility] Comment on above: Order Comment: Specimen Type: BLOOD SPEC IMENOrdering Facility: [facility] Address: [address] [place] [address] Performed By: #### 5 7021-8 ####CONET[facility] LABORATORYCLIA [id number] [place] [address] [place] Platelets Estimate (Bld) [#/Vol] Increased Normal [facility] Comment on above: Order Comment: Specimen Type: BLOOD SPEC IMENOrdering Facility: [facility] Address: [address] [place] [address] Performed By: #### 5 7021-8 ####CONET[facility] LABORATORYCLIA [id number] [place] [id number] [place] RBC (Bld) [#/Vol] 4.07 10*6/uL Normal 3.90-5.20 [facility] Comment on above: Order Comment: Specimen Type: BLOOD SPEC IMENOrdering Facility: [facility] Address: [address] [place] [address] Performed By: #### 5 7021-8 ####CONETOE LABORATORYCLIA [id number] [address] [place] Reviewed: unremarkable Normal [facility] Comment on above: Order Comment: Specimen Type: BLOOD SPEC IMENOrdering Facility: [facility] Address: [address] [place] [address] Performed By: #### 5 7021-8 ####CONET[facility] LABORATORYCLIA [id number] [place] [id number] [place] WBC (Bld) [#/Vol] 14.67 10*3/uL High 3.70-11.00 [facility] Comment on above: Order Comment: Specimen Type: BLOOD SPEC IMENOrdering Facility: [facility] Address: [address] [place] [address] Performed By: #### 5 7021-8 ####CONETOE LABORATORYCLIA [id number] [place] [id number] [facility] [place] CONSULT PROGon 08-05-2023 CONSULT PROG HNO ID: [id number] Author: BRIE ROJO APRN.AQUARIUM SPECIALIST Service: Pain Management Author Type: Nurse Practitioner [...] OBJECTIVE PERTINENT ROS: ALLERGIES Allergen Reactions Adhes. Kevr-Deqw-Md* Rash Adhesive Tape-Silic* Rash Augmentin [Amoxicil* Diarrhea Keflex [Cephalexin] Rash, Itching Penicillins Hives Ultram [Tramadol Hc* Itching Information retrieved from Allergy section. Is the patient intubated and sedated? No. Numbness?: No Weakness?: No Nausea?: No Vomitting?: No Pruritis?: No Back pain?: No Headache?: No Sedation?: No Confusion/Delirium?: No Other: none Epidural Location: Thoracic Epidural catheter placed: Day of surgery MEDICATIONS: Epidural Medications and WINDOW DRAPER Settings Bupivacaine 0.0625% + Fentanyl 2 mcg/mL [...] (CYMBALTA) 60 mg ORAL DAILY phenol 1 Martin (CHLORASEPTIC) 1 Martin MUCOUS MEMBRANE (TOPICAL MOUTH AND THROAT) q [...] SUBCUTANEOUS q (more content not included)... Normal [facility] HIGH SENSITIVITY TROPONIN To n 08-05-2023 Troponin T.cardiac High sensitivity method [Mass/Vol] <6 Normal <12 [facility] Comment on above: Order Comment: Specimen Type: BLOOD SPEC IMENOrdering Facility: [facility] Address: [address] [place] [address] Result Comment: When assessing risk for acute [...] MACE. Performed By: #### 2 4321-2, HSTNT ####CONETOE LABORATORYCLIA [id number] [address] OF [facility] NURSING PROGon 08-05-2023 NURSING PROG HNO ID: [id number] Author: DIANA PATHAK, SUSAN Service: Radiology Author Type: Registered Nurse Type: Nursing Progress Note Filed: 08/05/2023 11:42 Note Text: Nursing Progress Note Patient Name: Susi Ortiz [facility] Daily Note: 1100: Called to floor for difficult IV access. #22g 2 inch IV started to right FA under US guidance. Flushes well with brisk blood return. This note was completed by: Diana Pathak [facility] NURSING PROG HNO ID: [id number] Author: NAVDEEP VANCE RN Service: ? Author Type: Registered [...] chips. Cates intact and secured and draining yellow/mary urine. Epidural intact and infusing per AUG. 0803: Called vascular access for a new peripheral IV access, pt is US placement. Vascular access at bedside and placed peripheral IV. [facility] PT EDon 08-05-2023 PT ED HNO ID: [id number] Author: ROMERO GOOD RD Service: NST-Nutrition Support Team Author [...] Billing: $ Initial Assessment: 1-15 minutes SIGNATURE: Romero Good RD PATIENT NAME: Susi Borjahip DATE: August 05, 2023 TIME: 12:20 PM PAGER: [facility] ANES PRE-OPon 08-04-2023 ANES PRE-OP HNO ID: [id number] Author: AMANDA ALCANTAR DO Service: Anesthesiology Author [...] Considerations: None Procedure Information Anesthesia Start Date/Time: 08/04/2333 Procedure: GASTRECTOMY, GASTRIC RESTRICTIVE PARTIAL (50 TO [...] - montelukast (SINGULA (more content not included)... [facility] BRIEF OP NOTon 08-04-2023 BRIEF OP NOT HNO ID: [id number] Author: JOE GRANDA MD Service: General Surgery Author Type: Physician Type: Brief Op Note Filed: 08/04/2023 15:27 Note Text: BRIEF OPERATIVE NOTE [facility] LOG ID: [id number] SURGERY/PROCEDURE DATE: 08/04/2023 INCISION/PROCEDURE START TIME: 9:39 AM INCISION CLOSE/PROCEDURE END TIME: 2:39 PM SURGEON(S) AND SECRETARY OFFICE CLERK(S): Surgeon(s) and Role: * Joe Granda MD [...] DATE: August 04, 2023 TIME: 3:01 PM [id number] Joe Granda MD Normal [facility] Basic metabolic 2000 panelon 08-04-2023 Anion gap [Moles/Vol] 13 mmol/L Normal 9-18 [facility] Comment on above: Order Comment: Specimen Type: BLOOD SPEC IMENOrdering Facility: [facility] Address: [address] [place] [address] Performed By: #### 1 9123-9, 57071-2, 2776-06 ####CONETOE LABORATORYCLIA [id number] [place] [id number] [place] Calcium [Mass/Vol] 8.5 mg/dL Normal 8.5-10.2 [facility] Comment on above: Order Comment: Specimen Type: BLOOD SPEC IMENOrdering Facility: [facility] Address: [address] [place] [address] Performed By: #### 1 9123-9, 33737-5, 2776-06 ####CONETOE LABORATORYCLIA [id number] [place] [address] [place] Chloride [Moles/Vol] 101 mmol/L Normal 97-105 [facility] Comment on above: Order Comment: Specimen Type: BLOOD SPEC IMENOrdering Facility: [facility] Address: [address] [place] [address] Performed By: #### 1 9123-9, 21153-9, 2776-06 ####CONETOE LABORATORYCLIA [id number] [place] [id number] [place] CO2 [Moles/Vol] 20 mmol/L Low 22-30 [facility] Comment on above: Order Comment: Specimen Type: BLOOD SPEC IMENOrdering Facility: [facility] Address: [address] [place] [address] Performed By: #### 1 9123-9, 98001-2, 2776- ####CONETOE LABORATORYCLIA [id number] [place] [id number] [place] Creatinine [Mass/Vol] 0.69 mg/dL Normal 0.58-0.96 [facility] Comment on above: Order Comment: Specimen Type: BLOOD SPEC IMENOrdering Facility: [facility] Address: [address] [place] [address] Performed By: #### 1 9123-9, 16148-2, 2777- ####CONETOE LABORATORYCLIA [id number] [place] [id number] [place] Creatinine and Glomerular filtration rate.predicted panel (S/P/Bld) 114 mL/min/1.73m??? Normal >=60 [facility] Comment on above: Order Comment: Specimen Type: BLOOD SPEC IMENOrdering Facility: [facility] Address: [address] [place] [address] Result Comment: Janet mated Glomerular Filtration Rate [...] actual GFR. Performed By: #### 1 9123-9, 33571-1, 2776-06 ####CONETOE LABORATORYCLIA [id number] [place] [id number] [place] Glucose [Mass/Vol] 137 mg/dL High 74-99 [facility] Comment on above: Order Comment: Specimen Type: BLOOD SPEC IMENOrdering Facility: [facility] Address: [address] [place] [address] Result Comment: The [place] [employer] Association (ADA) provides guidance for cutoff [...] Standards of Medical Care in Diabetes 2016, [place] [employer]. Diabetes Care. 2016.39(Suppl 1). Performed By: #### 1 9123-9, 91023-9, 2776- ####GEORGE LABORATORYCLIA [id number] [place] [id number] [place] Potassium [Moles/Vol] 5.1 mmol/L Normal 3.7-5.1 [facility] Comment on above: Order Comment: Specimen Type: BLOOD SPEC IMENOrdering Facility: [facility] Address: [address] [place] [address] Performed By: #### 1 9123-9, 47503-4, 2776- ####[facility] LABORATORYCLIA [id number] [place] [id number] [place] Sodium [Moles/Vol] 134 mmol/L Low 136-144 [facility] Comment on above: Order Comment: Specimen Type: BLOOD SPEC IMENOrdering Facility: [facility] Address: [address] [place] [address] Performed By: #### 1 9123-9, 74897-7, 2776-06 ####[facility] LABORATORYCLIA [id number] [place] [id number] [place] Urea nitrogen [Mass/Vol] 7 mg/dL Normal 7-21 [facility] Comment on above: Order Comment: Specimen Type: BLOOD SPEC IMENOrdering Facility: [facility] Address: [address] [place] [address] Performed By: #### 1 9123-9, 55693-5, 2776-06 ####[facility] LABORATORYCLIA [id number] [place] [id number] [place] CBC W Auto Differential pane l (Bld)on 08-04-2023 Basophils (Bld) [#/Vol] 0.06 10*3/uL Normal <0.11 [facility] Comment on above: Order Comment: Specimen Type: BLOOD SPEC IMENOrdering Facility: [facility] Address: [address] [place] [address] Performed By: #### 5 7021-8 ####GEORGE LABORATORYCLIA [id number] [place] [id number] [place] Basophils/100 WBC (Bld) 0.3 % Normal [facility] Comment on above: Order Comment: Specimen Type: BLOOD SPEC IMENOrdering Facility: [facility] Address: [address] [place] [address] Performed By: #### 5 7021-8 ####GEORGE LABORATORYCLIA [id number] [place] [address] [place] Differential cell count method Nom (Bld) Auto Normal [facility] Comment on above: Order Comment: Specimen Type: BLOOD SPEC IMENOrdering Facility: [facility] Address: [address] [place] [address] Performed By: #### 5 7021-8 ####[facility] LABORATORYCLIA [id number] [place] [address] [place] Eosinophils (Bld) [#/Vol] 0.07 10*3/uL Normal <0.46 [facility] Comment on above: Order Comment: Specimen Type: BLOOD SPEC IMENOrdering Facility: [facility] Address: [address] [place] [address] Performed By: #### 5 7021-8 ####[facility] LABORATORYCLIA [id number] [address] [place] Eosinophils/100 WBC (Bld) 0.4 % Normal [facility] Comment on above: Order Comment: Specimen Type: BLOOD SPEC IMENOrdering Facility: [facility] Address: [address] [place] [address] Performed By: #### 5 7021-8 ####[facility] LABORATORYCLIA [id number] [place] [id number] [place] Erythrocyte distribution width (RBC) [Ratio] 14.2 % Normal 11.5-15.0 [facility] Comment on above: Order Comment: Specimen Type: BLOOD SPEC IMENOrdering Facility: [facility] Address: [address] [place] [address] Performed By: #### 5 7021-8 ####GEORGE LABORATORYCLIA [id number] [place] [id number] [place] Hematocrit (Bld) [Volume fraction] 40.3 % Normal 36.0-46.0 [facility] Comment on above: Order Comment: Specimen Type: BLOOD SPEC IMENOrdering Facility: [facility] Address: [address] [place] [address] Performed By: #### 5 7021-8 ####GEORGE LABORATORYCLIA [id number] [place] [id number] [place] Hemoglobin (Bld) [Mass/Vol] 13.0 g/dL Normal 11.5-15.5 [facility] Comment on above: Order Comment: Specimen Type: BLOOD SPEC IMENOrdering Facility: [facility] Address: [address] [place] [address] Performed By: #### 5 7021-8 ####GEORGE LABORATORYCLIA [id number] [place] [id number] [place] Immature granulocytes (Bld) [#/Vol] 0.05 10*3/uL Normal <0.10 [facility] Comment on above: Order Comment: Specimen Type: BLOOD SPEC IMENOrdering Facility: [facility] Address: [address] [place] [address] Performed By: #### 5 7021-8 ####GEORGE LABORATORYCLIA [id number] [address] [place] Immature granulocytes/100 WBC (Bld) 0.3 % Normal [facility] Comment on above: Order Comment: Specimen Type: BLOOD SPEC IMENOrdering Facility: [facility] Address: [address] [place] [address] Performed By: #### 5 7021-8 ####GEORGE LABORATORYCLIA [id number] [place] [id number] [place] Lymphocytes (Bld) [#/Vol] 1.82 10*3/uL Normal 1.00-4.00 [facility] Comment on above: Order Comment: Specimen Type: BLOOD SPEC IMENOrdering Facility: [facility] Address: [address] [place] [address] Performed By: #### 5 7021-8 ####[facility] LABORATORYCLIA [id number] [address] [place] Lymphocytes/100 WBC (Bld) 9.7 % Normal [facility] Comment on above: Order Comment: Specimen Type: BLOOD SPEC IMENOrdering Facility: [facility] Address: [address] [place] [address] Performed By: #### 5 7021-8 ####[facility] LABORATORYCLIA [id number] [address] [place] MCH (RBC) [Entitic mass] 29.4 pg Normal 26.0-34.0 [facility] Comment on above: Order Comment: Specimen Type: BLOOD SPEC IMENOrdering Facility: [facility] Address: [address] [place] [address] Performed By: #### 5 7021-8 ####[facility] LABORATORYCLIA [id number] [address] STATES [facility] MCHC (RBC) [Mass/Vol] 32.3 g/dL Normal 30.5-36.0 [facility] Comment on above: Order Comment: Specimen Type: BLOOD SPEC IMENOrdering Facility: [facility] Address: [address] [place] [address] Performed By: #### 5 7021-8 ####[facility] LABORATORYCLIA [id number] [address] [place] MCV (RBC) [Entitic vol] 91.2 fL Normal 80.0-100.0 [facility] Comment on above: Order Comment: Specimen Type: BLOOD SPEC IMENOrdering Facility: [facility] Address: [address] [place] [address] Performed By: #### 5 7021-8 ####[facility] LABORATORYCLIA [id number] [address] [place] Monocytes (Bld) [#/Vol] 1.16 10*3/uL High <0.87 [facility] Comment on above: Order Comment: Specimen Type: BLOOD SPEC IMENOrdering Facility: [facility] Address: [address] [place] [address] Performed By: #### 5 7021-8 ####[facility] LABORATORYCLIA [id number] [place] [id number] [place] Monocytes/100 WBC (Bld) 6.2 % Normal [facility] Comment on above: Order Comment: Specimen Type: BLOOD SPEC IMENOrdering Facility: [facility] Address: [address] [place] [address] Performed By: #### 5 7021-8 ####[facility] LABORATORYCLIA [id number] [place] [id number] [place] Neutrophils (Bld) [#/Vol] 15.62 10*3/uL High 1.45-7.50 [facility] Comment on above: Order Comment: Specimen Type: BLOOD SPEC IMENOrdering Facility: [facility] Address: [address] [place] [address] Performed By: #### 5 7021-8 ####[facility] LABORATORYCLIA [id number] [place] [id number] [place] Neutrophils/100 WBC (Bld) 83.1 % Normal [facility] Comment on above: Order Comment: Specimen Type: BLOOD SPEC IMENOrdering Facility: [facility] Address: [address] [place] [address] Performed By: #### 5 7021-8 ####GEORGE LABORATORYCLIA [id number] [place] [id number] [place] Nucleated RBC (Bld) [#/Vol] 10*3/uL Normal <0.01 [facility] Comment on above: Order Comment: Specimen Type: BLOOD SPEC IMENOrdering Facility: [facility] Address: [address] [place] [address] Performed By: #### 5 7021-8 ####[facility] LABORATORYCLIA [id number] [place] [id number] [place] Nucleated RBC/100 WBC (Bld) [Ratio] 0.0 /100 WBC Normal [facility] Comment on above: Order Comment: Specimen Type: BLOOD SPEC IMENOrdering Facility: [facility] Address: [address] [place] [address] Performed By: #### 5 7021-8 ####[facility] LABORATORYCLIA [id number] [place] [id number] [place] Platelet mean volume (Bld) [Entitic vol] 9.2 fL Normal 9.0-12.7 [facility] Comment on above: Order Comment: Specimen Type: BLOOD SPEC IMENOrdering Facility: [facility] Address: [address] [place] [address] Performed By: #### 5 7021-8 ####[facility] LABORATORYCLIA [id number] [place] [id number] [place] Platelets (Bld) [#/Vol] 502 10*3/uL High 150-400 [facility] Comment on above: Order Comment: Specimen Type: BLOOD SPEC IMENOrdering Facility: [facility] Address: [address] [place] [address] Performed By: #### 5 7021-8 ####[facility] LABORATORYCLIA [id number] [place] [id number] [place] RBC (Bld) [#/Vol] 4.42 10*6/uL Normal 3.90-5.20 [facility] Comment on above: Order Comment: Specimen Type: BLOOD SPEC IMENOrdering Facility: [facility] Address: [address] [place] [address] Performed By: #### 5 7021-8 ####[facility] LABORATORYCLIA [id number] [place] [id number] [place] WBC (Bld) [#/Vol] 18.78 10*3/uL High 3.70-11.00 [facility] Comment on above: Order Comment: Specimen Type: BLOOD SPEC IMENOrdering Facility: [facility] Address: [address] [place] [address] Performed By: #### 5 7021-8 ####[facility] LABORATORYCLIA [id number] [place] [id number] [place] HIGH SENSITIVITY TROPONIN To n 08-04-2023 Troponin T.cardiac High sensitivity method [Mass/Vol] 7 ng/L Normal <12 [facility] Comment on above: Order Comment: Specimen Type: BLOOD SPEC IMENOrdering Facility: [facility] Address: [address] [place] [address] Result Comment: When assessing risk for acute [...] day MACE. Performed By: #### H STNT ####CONETOE LABORATORYCLIA [id number] [address] [place] Magnesium SerPl-mCncon 08-04 Magnesium [Mass/Vol] 1.8 mg/dL Normal 1.7-2.3 [facility] Comment on above: Order Comment: Specimen Type: BLOOD SPEC IMENOrdering Facility: [facility] Address: [address] [place] [address] Performed By: #### 1 9123-9, 94239-5, 2777-1 ####CONETOE LABORATORYCLIA [id number] [place] [id number] [place] NURSING PROGon 08-04-2023 NURSING PROG HNO ID: [id number] Author: NAVDEEP VANCE RN Service: ? Author Type: Registered Nurse Type: Nursing Progress Note Filed: 08/04/2023 17:06 Note Text: Transfer Note: PATIENT NAME: Susi Ortiz Patient Location: [place] [address] Room: [place] [address] Patient transferred into room/unit PK328 in stable condition. Actions taken: No futher actions taken at this time. Will continue to monitor and check with patient. 1705: Sent text page to surgical team, pt has epidural and need order for tele and pulse ox. Normal [facility] NURSING PROG HNO ID: [id number] Author: KINGA HERNANDEZ RN Service: Nursing Author Type: Registered Nurse Type: Nursing Progress Note Filed: 08/04/2023 07:38 Note Text: 0700- Patient refusing PANCHO hose and SCDs at this time. 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 [facility] NURSING PROG HNO ID: [id number] Author: KIEL MALONEY RN Service: Pain Management Author Type: Registered Nurse Type: Nursing Progress Note Filed: 08/04/2023 08:16 Note Text: THORACIC EPIDURAL ( T8) Dr. Lopez and Dr. Wiggins Patient verbalized understanding of epidural procedure. Patient tolerated procedure very well. [facility] NURSING PROG HNO ID: [id number] Author: KINGA HERNANDEZ RN Service: Nursing Author Type: Registered Nurse Type: Nursing Progress Note Filed: 08/04/2023 06:40 Note Text: PATIENT EDUCATION TOPIC: PROCEDURE / SURGERY: Pre-op Teaching: Surgical Safety Principles PATIENT NAME: Susi Ortiz PATIENT LOCATION: OR [place] OR POOL READ[place] TO LEARN COGNITIVE ABILITY: [...] (RECOMMENDATION): None Electronically Signed By: Kinga Hernandez [facility] OPERATIVE NOon 08-04-2023 OPERATIVE NO HNO ID: [id number] Author: JOE GRANDA MD Service: General Surgery Author Type: Physician Type: Operative Report Filed: 08/05/2023 15:18 Note Text: [facility] - Operative Report SUSI ORTIZ : 1985 AGE: 38. SEX: F PATIENT TYPE: I HOSP SVC: Surgical LOCATION: POOL05 ATTENDING PHYSICIAN: Joe Granda M.D. CSN NUMBER: [id number] DATE OF SURGERY/PROCEDURE: 08/04/2023 INCISION/PROCEDURE START TIME: 9:39 AM INCISION CLOSE/PROCEDURE END TIME: 2:39 PM PREOPERATIVE DIAGNOSIS: 1. Persistent morbid obesity. 2. 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 3. History of open splenectomy. POSTOPERATIVE DIAGNOSIS: 1. Persistent morbid obesity. 2. 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 3. History of open splenectomy. SURGEON: Joe Granda M.D. SECRETARY OFFICE CLERK: 1. Cony Soler MD. 2. Som Hampton [...] was counted and this was 380 cm. Rosana was placed at 120 cm for the common channel and 250 cm for the alimentary limb. A periduodenal dissection was performed beginning at the level of the pylorus proceeding posteriorly around the upper portion of the duodenum. Duodenum was encircled and was divided with the 60 mm johnson staple load. Then, the duodenum was anastomosed to the ileum at the 250 cm rosana with a posterior layer of running 3-0 [...] previously placed suture at the 120 cm rosana and this was anastomosed to the tip [...] during the duodenal dissection. Joe Granda M.D. ESTEFANIA:[id number] /[id number] D: 02/06/2 (more content not included)... Normal [facility] Phosphate SerPl-mCncon 08-04 Phosphate [Mass/Vol] 3.9 mg/dL Normal 2.7-4.8 [facility] Comment on above: Order Comment: Specimen Type: BLOOD SPEC IMENOrdering Facility: [facility] Address: [address] [place] [address] Performed By: #### 1 9123-9, 77402-9, 2777-1 ####CONETOE LABORATORYCLIA [id number] [address] CNPNon 08-03-2023 CNPN Telephone (GENBMI) SUSI ORTIZ ([id number]) 1985 F FNS Date Time Provider Department 08/03/23 GEN CURRY During your visit today, we recorded the following information about you: Gen Curry, RN 08/03/2023 5:00 PM Signed [facility] C[facility] COORDINATION SURGERY PRE-OP EDUCATION NOTE Phoned patient to reinforce prior pre-op instruction and answer any questions she might have. No answer. Left brief vmm including contact info for this RN and requested call back. Allergies As of Date: 08/03/2023 Noted Allergy Reaction ADHES. APED-OKYI-ILEGQYOUSYNO 03/13/2015 2 - Rash ADHESIVE TAPE-SILICONES 05/06/2019 [...] obesity (HCC) [E66.01] 03/31/2023 Encounter Status:Closed by GEN CURRY on 08/03/23 Normal [facility] HISTORY PHYSICALon HISTORY PHYSICAL HNO ID: [id number] Author: NONI SUMMERS APRN.AQUARIUM SPECIALIST Service: ? Author Type: Nurse Practitioner Type: [...] 2017 NEUROPLASTY AND/TRANSPOS MEDIAN NRV MARIA ELENAAL GRANT 2008;2009 bilateral S PROBE PERC LUMBAR DISCECTOMY [...] orally disintegrat (more content not included)... Normal [facility] TYPE AND SCREEN,30 DAYon ABO A Normal [facility] Comment on above: Order Comment: Specimen Type: BLOOD SPEC IMEN [facility] Address: [address] [place] [address] Performed By: #### 5 8410-2 #### [facility] CLIA [id number] [address] [place] [address] HISTORICAL AB SCR STATUS Negative Normal [facility] Comment on above: Order Comment: Specimen Type: BLOOD SPEC IMEN [facility] Address: [address] [place] [address] Performed By: #### 5 8410-2 #### [facility] CLIA [id number] [address] [place], [place] [address] Rh Nom (Bld) Positive Normal [facility] Comment on above: Order Comment: Specimen Type: BLOOD SPEC IMEN [facility] Address: [address] [place] [address] Performed By: #### 5 8410-2 #### [facility] CLIA [id number] [address] [place], [place] [address] CNOVon 07-20-2023 CNOV Office Visit (BMIREJ ) ORTIZSUSI ([id number]) 1985 F FNS Date Time Provider Department 07/20/23 11:50 AM JOE GRANDA BMIREJ During your visit today, we recorded the following information about you: Pulse Blood pressure Weight Height 77/minute 121/78 175 kg 1.626 m Last Period 07/08/23 Joe Granda MD 07/20/2023 2:06 PM Signed SURGERY PREOPERATIVE VISIT NOTE Name: Susi Ortiz Medical Record: [id number] Encounter No.: [id number] Susi Ortiz is a 38 year old [...] use: Never ALLERGIES: ALLERGIES Allergen Reactions Adhes. Epjs-Pbvc-Jy* Rash Adhesive Tape-Silic* Rash Augmentin [Amoxicil* Diarrhea [...] the potential (more content not included)... Normal [facility] CBC W Auto Differential pane l (Bld)on 07-13-2023 Basophils (Bld) [#/Vol] 0.11 10*3/uL High <0.11 [facility] Comment on above: Order Comment: Specimen Type: BLOOD SPEC IMEN [facility] Address: [address] [place] [address] Performed By: #### 5 8410-2 #### [facility] CLIA [id number] [address] [place] [address] Basophils/100 WBC (Bld) 0.8 % Normal [facility] Comment on above: Order Comment: Specimen Type: BLOOD SPEC IMEN [facility] Address: [address] [place] [address] Performed By: #### 5 8410-2 #### [facility] CLIA [id number] [address] [place] [address] Differential cell count method Nom (Bld) Auto Normal [facility] Comment on above: Order Comment: Specimen Type: BLOOD SPEC IMEN [facility] Address: [address] [place] [address] Performed By: #### 5 8410-2 #### [facility] CLIA [id number] [address] [place] [address] Eosinophils (Bld) [#/Vol] 0.31 10*3/uL Normal <0.46 [facility] Comment on above: Order Comment: Specimen Type: BLOOD SPEC IMEN [facility] Address: [address] [place] [address] Performed By: #### 5 8410-2 #### [facility] CLIA [id number] [address] [place] [address] Eosinophils/100 WBC (Bld) 2.3 % Normal [facility] Comment on above: Order Comment: Specimen Type: BLOOD SPEC IMEN [facility] Address: [address] [place] [address] Performed By: #### 5 8410-2 #### [facility] CLIA [id number] [address] [place] [address] Erythrocyte distribution width (RBC) [Ratio] 14.1 % Normal 11.5-15.0 [facility] Comment on above: Order Comment: Specimen Type: BLOOD SPEC IMEN [facility] Address: [address] [place] [address] Performed By: #### 5 8410-2 #### [facility] CLIA [id number] [address] [place] [address] Hematocrit (Bld) [Volume fraction] 45.8 % Normal 36.0-46.0 [facility] Comment on above: Order Comment: Specimen Type: BLOOD SPEC IMEN [facility] Address: [address] [place] [address] Performed By: #### 5 8410-2 #### [facility] CLIA [id number] [address] [place] [address] Hemoglobin (Bld) [Mass/Vol] 14.7 g/dL Normal 11.5-15.5 [facility] Comment on above: Order Comment: Specimen Type: BLOOD SPEC IMEN [facility] Address: [address] [place] [address] Performed By: #### 5 8410-2 #### [facility] CLIA [id number] [address] [place] [address] Immature granulocytes (Bld) [#/Vol] 0.05 10*3/uL Normal <0.10 [facility] Comment on above: Order Comment: Specimen Type: BLOOD SPEC IMEN [facility] Address: [address] [place] [address] Performed By: #### 5 8410-2 #### [facility] CLIA [id number] [address] [place] [address] Immature granulocytes/100 WBC (Bld) 0.4 % Normal [facility] Comment on above: Order Comment: Specimen Type: BLOOD SPEC IMEN [facility] Address: [address] [place] [address] Performed By: #### 5 8410-2 #### [facility] CLIA [id number] [address] [place] [address] Lymphocytes (Bld) [#/Vol] 3.61 10*3/uL Normal 1.00-4.00 [facility] Comment on above: Order Comment: Specimen Type: BLOOD SPEC IMEN [facility] Address: [address] [place] [address] Performed By: #### 5 8410-2 #### [facility] CLIA [id number] [address] [place] [address] Lymphocytes/100 WBC (Bld) 27.3 % Normal [facility] Comment on above: Order Comment: Specimen Type: BLOOD SPEC IMEN [facility] Address: [address] [place] [address] Performed By: #### 5 8410-2 #### [facility] CLIA [id number] [address] [place] [address] MCH (RBC) [Entitic mass] 28.9 pg Normal 26.0-34.0 [facility] Comment on above: Order Comment: Specimen Type: BLOOD SPEC IMEN [facility] Address: [address] [place] [address] Performed By: #### 5 8410-2 #### [facility] CLIA [id number] [address] [place] [address] MCHC (RBC) [Mass/Vol] 32.1 g/dL Normal 30.5-36.0 [facility] Comment on above: Order Comment: Specimen Type: BLOOD SPEC IMEN [facility] Address: [address] [place] [address] Performed By: #### 5 8410-2 #### [facility] CLIA [id number] [address] [place] [address] 11382 MCV (RBC) [Entitic vol] 90.0 fL Normal 80.0-100.0 [facility] Comment on above: Order Comment: Specimen Type: BLOOD SPEC IMEN Ordering Facility: [facility] Address: [address] [place] [address] Performed By: #### 5 8410-2 #### [facility] CLIA [id number] [address] [place] [address] 78780 Monocytes (Bld) [#/Vol] 1.10 10*3/uL High <0.87 [facility] Comment on above: Order Comment: Specimen Type: BLOOD SPEC IMEN Ordering Facility: [facility] Address: [address] [place] [address] Performed By: #### 5 8410-2 #### [facility] CLIA [id number] [address] [place] [address] 33150 Monocytes/100 WBC (Bld) 8.3 % Normal [facility] Comment on above: Order Comment: Specimen Type: BLOOD SPEC IMEN Ordering Facility: [facility] Address: [address] [place] [address] Performed By: #### 5 8410-2 #### [facility] CLIA [id number] [address] [place] [address] 02536 Neutrophils (Bld) [#/Vol] 8.05 10*3/uL High 1.45-7.50 [facility] Comment on above: Order Comment: Specimen Type: BLOOD SPEC IMEN Ordering Facility: [facility] Address: [address] [place] [address] Performed By: #### 5 8410-2 #### [facility] CLIA [id number] [address] [place] [address] 57547 Neutrophils/100 WBC (Bld) 60.9 % Normal [facility] Comment on above: Order Comment: Specimen Type: BLOOD SPEC IMEN Ordering Facility: [facility] Address: [address] [place] [address] Performed By: #### 5 8410-2 #### [facility] CLIA [id number] [address] [place] [address] 29820 Nucleated RBC (Bld) [#/Vol] 10*3/uL Normal <0.01 [facility] Comment on above: Order Comment: Specimen Type: BLOOD SPEC IMEN Ordering Facility: [facility] Address: [address] [place] [address] Performed By: #### 5 8410-2 #### [facility] CLIA [id number] [address] [place] [address] 00262 Nucleated RBC/100 WBC (Bld) [Ratio] 0.0 /100 WBC Normal [facility] Comment on above: Order Comment: Specimen Type: BLOOD SPEC IMEN Ordering Facility: [facility] Address: [address] [place] [address] Performed By: #### 5 8410-2 #### [facility] CLIA [id number] [address] [place] [address] 18323 Platelet mean volume (Bld) [Entitic vol] 9.1 fL Normal 9.0-12.7 [facility] Comment on above: Order Comment: Specimen Type: BLOOD SPEC IMEN Ordering Facility: [facility] Address: [address] [place] [address] Performed By: #### 5 8410-2 #### [facility] CLIA [id number] [address] [place] [address] 25513 Platelets (Bld) [#/Vol] 555 10*3/uL High 150-400 [facility] Comment on above: Order Comment: Specimen Type: BLOOD SPEC IMEN Ordering Facility: [facility] Address: [address] [place] [address] Performed By: #### 5 8410-2 #### [facility] CLIA [id number] [address] [place] [address] 97760 RBC (Bld) [#/Vol] 5.09 10*6/uL Normal 3.90-5.20 [facility] Comment on above: Order Comment: Specimen Type: BLOOD SPEC IMEN Ordering Facility: [facility] Address: [address] [place] [address] Performed By: #### 5 8410-2 #### [facility] CLIA [id number] [address] [place] [address] 42663 WBC (Bld) [#/Vol] 13.23 10*3/uL High 3.70-11.00 [facility] Comment on above: Order Comment: Specimen Type: BLOOD SPEC IMEN Ordering Facility: [facility] Address: [address] [place] [address] Performed By: #### 5 8410-2 #### [facility] CLIA [id number] [address] [place] [address] 94380 Comprehensive metabolic 2000 panelon 07-13-2023 Albumin [Mass/Vol] 4.5 g/dL Normal 3.9-4.9 [facility] Comment on above: Order Comment: Specimen Type: BLOOD SPEC IMEN Ordering Facility: [facility] Address: [address] [place] [address] Performed By: #### 2 276-4, 49782-2 #### [facility] CLIA [id number] [address] [place], [place] [address]K [id number] [place] [address] [place] ALP [Catalytic activity/Vol] 124 U/L High 34-123 [facility] Comment on above: Order Comment: Specimen Type: BLOOD SPEC IMEN Ordering Facility: [facility] Address: [address] [place] [address] Performed By: #### 2 276-4, 86491-0 #### [facility] CLIA [id number] [address] [place] [address] [place] ALT [Catalytic activity/Vol] 18 U/L Normal 7-38 [facility] Comment on above: Order Comment: Specimen Type: BLOOD SPEC IMEN Ordering Facility: [facility] Address: [address] [place] [address] Performed By: #### 2 276-4, 90245-6 #### [facility] CLIA [id number] [address] [place] [address] [place] Anion gap [Moles/Vol] 11 mmol/L Normal 9-18 [facility] Comment on above: Order Comment: Specimen Type: BLOOD SPEC IMEN Ordering Facility: [facility] Address: [address] [place] [address] Performed By: #### 2 276-4, 45394-5 #### [facility] CLIA [id number] [address] [place] [address] [place] AST [Catalytic activity/Vol] 21 U/L Normal 13-35 [facility] Comment on above: Order Comment: Specimen Type: BLOOD SPEC IMEN Ordering Facility: [facility] Address: [address] [place] [address] Performed By: #### 2 276-4, 41737-5 #### [facility] CLIA [id number] [address] [place] [address] [place] Bilirubin [Mass/Vol] 0.3 mg/dL Normal 0.2-1.3 [facility] Comment on above: Order Comment: Specimen Type: BLOOD SPEC IMEN Ordering Facility: [facility] Address: [address] [place] [address] Performed By: #### 2 276-4, 11775-7 #### [facility] CLIA [id number] [address] [place] [address] [place] Calcium [Mass/Vol] 10.0 mg/dL Normal 8.5-10.2 [facility] Comment on above: Order Comment: Specimen Type: BLOOD SPEC IMEN Ordering Facility: [facility] Address: [address] [place] [address] Performed By: #### 2 276-4, 81562-9 #### [facility] CLIA [id number] [address] [place] [address] [place] Chloride [Moles/Vol] 101 mmol/L Normal 97-105 [facility] Comment on above: Order Comment: Specimen Type: BLOOD SPEC IMEN Ordering Facility: [facility] Address: [address] [place] [address] Performed By: #### 2 276-4, 78890-0 #### [facility] CLIA [id number] [address] [place] [address] [place] CO2 [Moles/Vol] 25 mmol/L Normal 22-30 [facility] Comment on above: Order Comment: Specimen Type: BLOOD SPEC IMEN Ordering Facility: [facility] Address: [address] [place] [address] Performed By: #### 2 276-4, 12764-2 #### [facility] CLIA [id number] [address] [place] [address] [place] Creatinine [Mass/Vol] 0.73 mg/dL Normal 0.58-0.96 [facility] Comment on above: Order Comment: Specimen Type: BLOOD SPEC IMEN Ordering Facility: [facility] Address: [address] [place] [address] Performed By: #### 2 276-4, 90128-0 #### [facility] CLIA [id number] [address] [place] [address] [place] Creatinine and Glomerular filtration rate.predicted panel (S/P/Bld) 108 mL/min/1.73m??? Normal >=60 [facility] Comment on above: Order Comment: Specimen Type: BLOOD SPEC IMEN Ordering Facility: [facility] Address: [address] [place] [address] Result Comment: Janet mated Glomerular Filtration Rate [...] reflect actual GFR. Performed By: #### 2 276-4, 41714-4 #### [facility] CLIA [id number] [address] [place] [address] [place] Glucose [Mass/Vol] 115 mg/dL High 74-99 [facility] Comment on above: Order Comment: Specimen Type: BLOOD SPEC IMEN Ordering Facility: [facility] Address: [address] [place] [address] Result Comment: The [place] [employer] (ADA) provides guidance for cutoff [...] Standards of Medical Care in Diabetes 2016, [place] [employer]. Diabetes Care. 2016.39(Suppl 1). Performed By: #### 2 276-4, 18701-7 #### [facility] CLIA [id number] [address] [place] [address] [place] Potassium [Moles/Vol] 4.3 mmol/L Normal 3.7-5.1 [facility] Comment on above: Order Comment: Specimen Type: BLOOD SPEC IMEN Ordering Facility: [facility] Address: [address] [place] [address] Performed By: #### 2 276-4, 14752-0 #### [facility] CLIA [id number] [address] [place], [place] [address] [place] Protein [Mass/Vol] 8.1 g/dL High 6.3-8.0 [facility] Comment on above: Order Comment: Specimen Type: BLOOD SPEC IMEN Ordering Facility: [facility] Address: [address] [place] [address] Performed By: #### 2 276-4, 72617-3 #### [facility] CLIA [id number] [address] [place] [address] [place] Sodium [Moles/Vol] 137 mmol/L Normal 136-144 [facility] Comment on above: Order Comment: Specimen Type: BLOOD SPEC IMEN Ordering Facility: [facility] Address: [address] [place] [address] Performed By: #### 2 276-4, 56177-8 #### [facility] CLIA [id number] [address] [place] [address] [place] Urea nitrogen [Mass/Vol] 10 mg/dL Normal 7-21 [facility] Comment on above: Order Comment: Specimen Type: BLOOD SPEC IMEN Ordering Facility: [facility] Address: [address] [place] [address] Performed By: #### 2 276-4, 86671-5 #### [facility] CLIA [id number] [address] [place] [address] [place] Basic metabolic 2000 panelon 04-01-2023 Anion gap [Moles/Vol] 10 mmol/L Normal 9-18 [facility] Comment on above: Order Comment: Specimen Type: BLOOD SPEC IMENOrdering Facility: [facility] Address: [address] [id number] Performed By: #### 2 4321-2 ####[facility]ORY[facility] [id number] [place] [address] [place] Calcium [Mass/Vol] 9.1 mg/dL Normal 8.5-10.2 [facility] Comment on above: Order Comment: Specimen Type: BLOOD SPEC IMENOrdering Facility: [facility] Address: [address] [place] [address] Performed By: #### 2 4321-2 ####[facility]ORYCLIA [id number] [address] [place] Chloride [Moles/Vol] 102 mmol/L Normal 97-105 [facility] Comment on above: Order Comment: Specimen Type: BLOOD SPEC IMENOrdering Facility: [facility] Address: [address] [address] Performed By: #### 2 4321-2 ####[facility]ATORYCLIA [id number] [address] [place] CO2 [Moles/Vol] 25 mmol/L Normal 22-30 [facility] Comment on above: Order Comment: Specimen Type: BLOOD SPEC IMENOrdering Facility: [facility] Address: [address] [place] [address] Performed By: #### 2 4321-2 ####[facility]ATORYCLIA [id number] [place] [id number] [place] Creatinine [Mass/Vol] 0.59 mg/dL Normal 0.58-0.96 [facility] Comment on above: Order Comment: Specimen Type: BLOOD SPEC IMENOrdering Facility: [facility] Address: [address] [place] [address] Performed By: #### 2 4321-2 ####[facility]ATORYCLIA [id number] [address] Creatinine and Glomerular filtration rate.predicted panel (S/P/Bld) 119 mL/min/1.73m??? Normal >=60 [facility] Comment on above: Order Comment: Specimen Type: BLOOD SPEC IMENOrdering Facility: [facility] Address: [address] [place] [address] Result Comment: Janet mated Glomerular Filtration Rate [...] actual GFR. Performed By: #### 2 4321-2 ####[facility] LABORATORYCLIA [id number] [place] [address] [place] Glucose [Mass/Vol] 130 mg/dL High 74-99 [facility] Comment on above: Order Comment: Specimen Type: BLOOD SPEC IMENOrdering Facility: [facility] Address: [address] [address] Result Comment: The [place] Diabetes [employer] (ADA) provides guidance for cutoff [...] Standards of Medical Care in Diabetes 2016, [place] [employer]. Diabetes Care. 2016.39(Suppl 1). Performed By: #### 2 4321-2 ####[facility] LABORATORYCLIA [id number] [place] [address] [place] Potassium [Moles/Vol] 4.2 mmol/L Normal 3.7-5.1 [facility] Comment on above: Order Comment: Specimen Type: BLOOD SPEC IMENOrdering Facility: [facility] Address: [address] [address] Performed By: #### 2 4321-2 ####[facility] LABORATORYCLIA [id number] [place] [address] [place] Sodium [Moles/Vol] 137 mmol/L Normal 136-144 [facility] Comment on above: Order Comment: Specimen Type: BLOOD SPEC IMENOrdering Facility: [facility] Address: [address] Performed By: #### 2 4321-2 ####[facility] LABORATORYCLIA [id number] [place] [id number] [place] [facility] Urea nitrogen [Mass/Vol] 5 mg/dL Low 7-21 [facility] Comment on above: Order Comment: Specimen Type: BLOOD SPEC IMENOrdering Facility: [facility] Address: [address] [address] Performed By: #### 2 4321-2 ####[facility] LABORATORYCLIA [id number] [place] [id number] [facility] CBC panel Auto (Bld)on 04-01 Erythrocyte distribution width (RBC) [Ratio] 15.1 % High 11.5-15.0 [facility] Comment on above: Order Comment: Specimen Type: BLOOD SPEC IMENOrdering Facility: [facility] Address: [address] [address] Performed By: #### 5 8410-2 ####[facility] LABORATORYCLIA [id number] [address] Hematocrit (Bld) [Volume fraction] 39.2 % Normal 36.0-46.0 [facility] Comment on above: Order Comment: Specimen Type: BLOOD SPEC IMENOrdering Facility: [facility] Address: [address] [address] Performed By: #### 5 8410-2 ####[facility] LABORATORYCLIA [id number] [place] [id number] [place] [facility] Hemoglobin (Bld) [Mass/Vol] 12.7 g/dL Normal 11.5-15.5 [facility] Comment on above: Order Comment: Specimen Type: BLOOD SPEC IMENOrdering Facility: [facility] Address: [address] [address] Performed By: #### 5 8410-2 ####[facility] LABORATORYCLIA [id number] [address] [place] MCH (RBC) [Entitic mass] 29.3 pg Normal 26.0-34.0 [facility] Comment on above: Order Comment: Specimen Type: BLOOD SPEC IMENOrdering Facility: [facility] Address: [address] [address] Performed By: #### 5 8410-2 ####[facility] LABORATORYCLIA [id number] [address] MCHC (RBC) [Mass/Vol] 32.4 g/dL Normal 30.5-36.0 [facility] Comment on above: Order Comment: Specimen Type: BLOOD SPEC IMENOrdering Facility: [facility] Address: [address] [address] Performed By: #### 5 8410-2 ####[facility] LABORATORYCLIA [id number] [address] MCV (RBC) [Entitic vol] 90.3 fL Normal 80.0-100.0 [facility] Comment on above: Order Comment: Specimen Type: BLOOD SPEC IMENOrdering Facility: [facility] Address: [address] [address] Performed By: #### 5 8410-2 ####[facility] LABORATORYCLIA [id number] [address] Nucleated RBC (Bld) [#/Vol] 10*3/uL Normal <0.01 [facility] Comment on above: Order Comment: Specimen Type: BLOOD SPEC IMENOrdering Facility: [facility] Address: [address] [address] Performed By: #### 5 8410-2 ####[facility]ORATORYCLIA [id number] [address] Platelet mean volume (Bld) [Entitic vol] 9.7 fL Normal 9.0-12.7 [facility] Comment on above: Order Comment: Specimen Type: BLOOD SPEC IMENOrdering Facility: [facility] Address: [address] [address] Performed By: #### 5 8410-2 ####[facility] LABORATORYCLIA [id number] [place] [id number] [place] Platelets (Bld) [#/Vol] 463 10*3/uL High 150-400 [facility] Comment on above: Order Comment: Specimen Type: BLOOD SPEC IMENOrdering Facility: [facility] Address: [address] [place] [address] Performed By: #### 5 8410-2 ####[facility] LABORATORYCLIA [id number] [place] [id number] [place] RBC (Bld) [#/Vol] 4.34 10*6/uL Normal 3.90-5.20 [facility] Comment on above: Order Comment: Specimen Type: BLOOD SPEC IMENOrdering Facility: [facility] Address: [address] [place] [address] Performed By: #### 5 8410-2 ####[facility] LABORATORYCLIA [id number] [place] [id number] [place] WBC (Bld) [#/Vol] 15.94 10*3/uL High 3.70-11.00 [facility] Comment on above: Order Comment: Specimen Type: BLOOD SPEC IMENOrdering Facility: [facility] Address: [address] [place] [address] Performed By: #### 5 8410-2 ####[facility] LABORATORYCLIA [id number] [place] [id number] [facility] [place] NURSING PROGon 04-01-2023 NURSING PROG HNO ID: [id number] Author: Susi Ruffin, SUSAN Service: Nursing Author Type: Registered Nurse Type: Nursing Progress Note Filed: 04/01/2023 4:52 PM Note Text: Daily Note 1645 Pt discharged in stable condition and all of belongings left with pt. Discussed discharge paperwork, follow-up appointments, and clarified questions. IV removed and transport called to wheel pt out. Normal [facility] NURSING PROG HNO ID: [id number] Author: Hina Monet RN Service: ? Author Type: Registered Nurse Type: Nursing Progress Note Filed: 04/01/2023 3:24 AM Note Text: Pt tolerating clears. Given oxycodone twice tonight for abd pain. States passing flatus. up to BR with standby assist. Steady, stable. [facility] PT EDon 04-01-2023 PT ED HNO ID: [id number] Author: Romero Good RD Service: NST-Nutrition Support Team Author [...] Billing: $ Initial Assessment: 1-15 minutes SIGNATURE: Romero Good RD PATIENT NAME: Susi Milesenship DATE: April 01, 2023 TIME: 12:23 PM PAGER: [facility] ANES POSTPROC EVALon 023 ANES POSTPROC EVAL HNO ID: [id number] Author: Darrel Conklin MD Service: Anesthesiology Author [...] March 31, 2023 TIME: 2:40 PM CSN: [id number] [facility] ANES PRE-OPon 03-31-2023 ANES PRE-OP HNO ID: [id number] Author: Darrel Conklin MD Service: Anesthesiology Author [...] SIGNATURE: Darrel Conklin MD PATIENT NAME: Susi Ortiz DATE: March 31, 2023 TIME: 9:13 AM CSN: [id number] [facility] BRIEF OP NOTon 03-31-2023 BRIEF OP NOT HNO ID: [id number] Author: Joe Abraham MD Service: General Surgery Author Type: Resident Type: Brief Op Note Filed: 03/31/2023 12:53 PM Note Text: Attestation signed by Joe Granda MD at 03/31/2023 2:33 PM [id number] Joe Granda MD GENERAL SURGERY BRIEF OP NOTE LOG ID: [id number] Surgery/Procedure Date: 03/31/2023 Incision/Procedure Start Time: 11:11 AM Incision Close/Procedure End Time: 12:52 PM Surgeon(s) [facility] Owner(s): Surgeon(s) and Role: * Joe Granda MD [...] 31, 2023 TIME: 12:52 PM PAGER/CONTACT #: [phone] [facility] NURSING PROGon 03-31-2023 NURSING PROG HNO ID: [id number] Author: Susi Ruffin RN Service: Nursing Author Type: Registered Nurse Type: Nursing Progress Note Filed: 03/31/2023 5:08 PM Note Text: Transfer Note: PATIENT NAME: Susi Ortiz Patient Location: [place] [address] [address] Room: [place] [address] Patient transferred in stable condition. Actions taken: Report given/called to [facility]. Orders signed and held were transferred over. [facility] NURSING PROG HNO ID: [id number] Author: Cathleen Hubbard RN Service: Nursing Author Type: Registered Nurse Type: Nursing Progress Note Filed: 03/31/2023 8:48 AM Note Text: PATIENT EDUCATION TOPIC: PROCEDURE / SURGERY: Pre-op Teaching: Logistics Protocols PATIENT NAME: Susi Ortiz [place] READINESS TO LEARN COGNITIVE ABILITY: Alert and [...] (RECOMMENDATION): None Electronically Signed By: Cathleen Hubbard [facility] OPERATIVE NOon 03-31-2023 OPERATIVE NO HNO ID: [id number] Author: Joe Granda MD Service: General Surgery Author Type: Physician Type: Operative Report Filed: 04/09/2023 3:22 PM Note Text: [facility] - Operative Report SUSI ORTIZ : 1985 AGE: 37. SEX: F PATIENT TYPE: I HOSP SVC: Surgical [facility] ATT[facility]ING PH[facility]ICIAN: Joe Granda M.D. CSN NUMBER: [id number] DATE OF SURGERY/PROCEDURE: 03/31/2023 INCISION/PROCEDURE START TIME: [...] of sleeve leak. SURGEON: Joe Granda M.D. SECRETARY OFFICE CLERK: Joe Abraham. SURGERY/PROCEDURE: Laparoscopic enterolysis. ANESTHESIA: General [...] Monocryl an (more content not included)... Normal [facility] XR ankle LT min 3V*on 2022 XR ankle LT min 3V* [facility] pinion-pins Other XR ankle LT min 3V* [facility] Gem Other XR ankle LT min 3V* [address] [place] [address] pinion-pins Other XR ankle LT min 3V* [place] [address] pinion-pins Other XR ankle LT min 3V* XRay Report pinion-pins Other XR ankle LT min 3V* Signed pinion-pins Other XR ankle LT min 3V* Patient: Susi Ortiz MR#: M pinion-pins Other XR ankle LT min 3V* [id number] pinion-pins Other XR ankle LT min 3V* : 1985 Acct:[id number] pinion-pins Other XR ankle LT min 3V* Age/Sex: 37 / F ADM Date: 12/13/22 pinion-pins Other XR ankle LT min 3V* Loc: [facility] Room: Type: REG CLI pinion-pins Other XR ankle LT min 3V* Attending Dr: Linda South [facility] pinion-pins Other XR ankle LT min 3V* Copies to: Linda South TELEPHONE ENGINEER pinion-pins Other XR ankle LT min 3V* Ordering Provider: Linda South APRN pinion-pins Other XR ankle LT min 3V* Date of Service: 12/13/22 pinion-pins Other XR ankle LT min 3V* XR/XR ankle LT min 3V*: Acute left ankle pain pinion-pins Other XR ankle LT min 3V* LEFT ANKLE - 3 views pinion-pins Other XR ankle LT min 3V* CLINICAL DATA: Patient felt a pop at the ankle while walking this morning. Lateral pain and [employer] Other XR ankle LT min 3V* swelling. pinion-pins Other XR ankle LT min 3V* COMPARISON: LEFT FOOT 11/13/2021 pinion-pins Other XR ankle LT min 3V* AP, lateral and oblique views were obtained. There is no evidence of fracture or dislocation. pinion-pins Other XR ankle LT min 3V* The talar dome is intact. Posterior and plantar calcaneal spurs are visualized. There is diffuse pinion-pins Other XR ankle LT min 3V* soft tissue prominence related to body habitus. pinion-pins Other XR ankle LT min 3V* XR/XR ankle LT min 3V* pinion-pins Other XR ankle LT min 3V* IMPRESSION: pinion-pins Other XR ankle LT min 3V* NO ACUTE BONY FINDINGS. [employer] Other XR ankle LT min 3V* Impression dictated by: Diana Rojas M.D.12/13/2022 10:38 AM [employer] Other XR ankle LT min 3V* Dictation Location: [place] [address] pinion-pins Other XR ankle LT min 3V* Transcribed By: GENO 12/13/22 [facility] pinion-pins Other XR ankle LT min 3V* Dictated By: Diana Rojas MD 12/13/22 1036 [employer] [facility] [employer] Other XR ankle LT min 3V* Signed By: pinion-pins Other XR ankle LT min 3V* 12/13/22 1038 [employer] [facility] [employer] Other XR ankle LT min 3V* [facility] [place] [address] [place] [address] XRay Report Signed Patient: Susi Ortiz MR#: Inna [id number] : 1985 Acct:[id number] Age/Sex: 37 / F ADM Date: 12/13/22 Loc: XDUCLY Room: Type: [facility] Attending Dr: Linda South APRN Copies [...] Diana Rojas M.D.12/13/2022 10:38 AM Dictation Location: [place] [address] Transcribed By: [facility] 12/13/22 1038 Dictated By: Diana Rojas MD 12/13/22 1036 Signed By: 12/13/[address] [facility] CT HEAD WO CONon 08-19-2022 [...] MANPREET TORRES Date: 2022-08-19 18:23 Normal [facility] VITAMIN B1 (THIAMINE)on 03-29 Vit. B1, Whole Blood 113.1 nmol/L Normal 66.5-200.0 [facility] Comment on above: Performed By: #### FETIBC, VITAD, B12FOL #### [facility] [address] [address] [address] Gentry Harmon XR foot RT min 3V*on 022 XR foot RT min 3V* [facility] [place] [address] [place] [address] XRay Report Signed Patient: Susi Ortiz MR#: Inna [id number] : 1985 Acct:[id number] Age/Sex: 36 / F ADM Date: 04/16/22 Loc: XDUCLY Room: Type: [facility] Attending Dr: Christa JONES Copies to: [...] surface of the calcaneus. Impression dictated by: Rosana Ventura M.D.04/16/2022 7:09 PM Dictation Location: [place] [address] Transcribed By: [facility] 04/16/221908 Dictated By: Roasna Ventura II, MD 04/16/221903 Signed By: 04/16/221908 Normal [facility] XR foot RT min 3V* [facility] [employer] Other XR foot RT min 3V* [facility] [employer] Other XR foot RT min 3V* [address] [place] [address] pinion-pins Other XR foot RT min 3V* [place] [address] pinion-pins Other XR foot RT min 3V* XRay Report pinion-pins Other XR foot RT min 3V* Signed pinion-pins Other XR foot RT min 3V* Patient: Susi Ortiz MR#: M pinion-pins Other XR foot RT min 3V* [id number] pinion-pins Other XR foot RT min 3V* : 1985 Acct:[id number] pinion-pins Other XR foot RT min 3V* Age/Sex: 36 / F ADM Date: 04/16/22 pinion-pins Other XR foot RT min 3V* Loc: XDUCLY Room: Type: REG CLI pinion-pins Other XR foot RT min 3V* Attending Dr: Christa JONES [facility] [employer] Other XR foot RT min 3V* Copies to: ROBERT Feliciano [employer] Other XR foot RT min 3V* Ordering Provider: ROBERT Feliciano [facility] [employer] Other XR foot RT min 3V* Date of Service: 04/16/22 [employer] Other XR foot RT min 3V* XR/XR foot RT min 3V*: Right foot pain pinion-pins Other XR foot RT min 3V* XR foot RT min 3V* 04/16/2022 6:45 PM [employer] [facility] [employer] Other XR foot RT min 3V* SIGNS AND SYMPTOMS: Popping sensation in right foot pinion-pins Other XR foot RT min 3V* PROTOCOL: Frontal, lateral, and oblique radiographs of the right pinion-pins Other XR foot RT min 3V* COMPARISON: 11/04/2018 pinion-pins Other XR foot RT min 3V* FINDINGS: pinion-pins Other XR foot RT min 3V* The bones are in anatomic alignment. Degenerative changes without evidence of fracture or [facility] [employer] Other XR foot RT min 3V* dislocation. There is diffuse soft tissue swelling. There is plantar and Achilles surface calc pinion-pins Other XR foot RT min 3V* aneal spurring. Degenerative changes are noted in the talonavicular joint. pinion-pins Other XR foot RT min 3V* XR/XR foot RT min 3V* pinion-pins Other XR foot RT min 3V* IMPRESSION: pinion-pins Other XR foot RT min 3V* No fracture. pinion-pins Other XR foot RT min 3V* There is diffuse soft tissue swelling which is new. pinion-pins Other XR foot RT min 3V* Mild degenerative changes are noted at the talonavicular junction with spurring at the plantar and pinion-pins Other XR foot RT min 3V* Achilles surface of the calcaneus. pinion-pins Other XR foot RT min 3V* Impression dictated by: Rosana Ventura M.D.04/16/2022 7:09 PM [facility] Other XR foot RT min 3V* Dictation Location: [place] [address] pinion-pins Other XR foot RT min 3V* Transcribed By: [facility] 04/16/221908 pinion-pins Other XR foot RT min 3V* Dictated By: Rosana Ventura II, MD 04/16/221903 pinion-pins Other XR foot RT min 3V* Signed By: pinion-pins Other XR foot RT min 3V* 04/16/221908 pinion-pins Other CBC AUTO DIFFon 04-11-2022 BASO # 0.1 103/ul Normal 0.0-0.1 [facility] Comment on above: Performed By: #### FETIBC, VITAD, B12FOL #### [facility] [address] [place] [address] Dr. Gentry Harmon Basophils/100 WBC (Bld) 0.5 % Normal 0.2-2.0 [facility] Comment on above: Performed By: #### FETIBC, VITAD, B12FOL #### [facility] [address] [place] [address] Dr. Gentry Harmon EO # 0.2 103/ul Normal 0.0-0.7 [facility] Comment on above: Performed By: #### FETIBC, VITAD, B12FOL #### [facility] [address] [place] [address] Dr. Gentry Harmon Eosinophils/100 WBC (Bld) 0.9 % Normal 0.9-7.0 [facility] Comment on above: Performed By: #### FETIBC, VITAD, B12FOL #### [facility] [address] [place] [address] Dr. Gentry Harmon Erythrocyte distribution width (RBC) [Ratio] 14.3 % Normal 11.0-15.0 [facility] Comment on above: Performed By: #### FETIBC, VITAD, B12FOL #### [facility] [address] [place] [address] Dr. Gentry Harmon Hematocrit (Bld) [Volume fraction] 41.9 % Normal 36.0-48.0 [facility] Comment on above: Performed By: #### FETIBC, VITAD, B12FOL #### [facility] [address] [place] [address] Dr. Gentry Harmon Hemoglobin (Bld) [Mass/Vol] 13.4 g/dL Normal 12.0-16.0 [facility] Comment on above: Performed By: #### FETIBC, VITAD, B12FOL #### [facility] [address] [place] [address] Dr. Gentry Harmon IG # 0.06 10e3/ul Critically high 0.00-0.03 [facility] Comment on above: Performed By: #### FETIBC, VITAD, B12FOL #### [facility] [address] [place] [address] Dr. Gentry Harmon IG % 0.3 % Normal 0.0-0.5 [facility] Comment on above: Performed By: #### FETIBC, VITAD, B12FOL #### [facility] [address] [place] [address] Dr. Gentry Harmon LYMPH # 5.9 103/ul Critically high 1.2-3.8 [facility] Comment on above: Performed By: #### FETIBC, VITAD, B12FOL #### [facility] [address] [place] [address] Dr. Gentry Harmon Lymphocytes/100 WBC (Bld) 34.0 % Normal 20.5-60.0 [facility] Comment on above: Performed By: #### FETIBC, VITAD, B12FOL #### [facility] [address] [place] [address] Dr. Gentry Harmon MANUAL DIFF REQ NO Normal [facility] Comment on above: Performed By: #### FETIBC, VITAD, B12FOL #### [facility] [address] [place] [address] Dr. Gentry Harmon MCH (RBC) [Entitic mass] 28.9 pg Normal 26.7-34.0 [facility] Comment on above: Performed By: #### FETIBC, VITAD, B12FOL #### [facility] [address] [place] [address] Dr. Gentry Harmon MCHC (RBC) [Mass/Vol] 32.0 g/dL Normal 29.9-35.2 [facility] Comment on above: Performed By: #### FETIBC, VITAD, B12FOL #### [facility] [address] [place] [address] Dr. Gentry Harmon MCV (RBC) [Entitic vol] 90.3 fL Normal 81.0-99.0 [facility] Comment on above: Performed By: #### FETIBC, VITAD, B12FOL #### [facility] [address] [place] [address] Dr. Gentry Harmon MONO # 1.3 103/ul Critically high 0.3-0.8 [facility] Comment on above: Performed By: #### FETIBC, VITAD, B12FOL #### [facility] [address] [place] [address] Dr. Gentry Harmon Monocytes/100 WBC (Bld) 7.8 % Normal 1.7-12.0 [facility] Comment on above: Performed By: #### FETIBC, VITAD, B12FOL #### [facility] [address] [address] [address] Gentry Harmon NEUT # 9.8 103/ul Critically high 1.4-6.5 [facility] Comment on above: Performed By: #### FETIBC, VITAD, B12FOL #### [facility] [address] [address] [address] Gentry Harmon Neutrophils/100 WBC (Bld) 56.5 % Normal 43.0-75.0 [facility] Comment on above: Performed By: #### FETIBC, VITAD, B12FOL #### [facility] [address] [address] [address] Gentry Harmon Platelet mean volume (Bld) [Entitic vol] 9.3 fL Critically low 9.5-13.5 [facility] Comment on above: Performed By: #### FETIBC, VITAD, B12FOL #### [facility] [address] [place] [address] Dr. Gentry Harmon PLT 522 103/ul Critically high 150-450 [facility] Comment on above: Performed By: #### FETIBC, VITAD, B12FOL #### [facility] [address] [place] [address] Dr. Gentry Harmon RBC 4.64 106/ul Normal 4.20-5.40 [facility] Comment on above: Performed By: #### FETIBC, VITAD, B12FOL #### [facility] [address] [place] [address] Dr. Gentry Harmon WBC 17.3 103/ul Critically high 4.0-11.0 [facility] Comment on above: Performed By: #### FETIBC, VITAD, B12FOL #### [facility] [address] [place] [address] Dr. Gentry Harmon IRON AND TIBCon 04-11-2022 % SATURATION 15.7 % Normal [facility] Comment on above: Performed By: #### FETIBC, VITAD, B12FOL #### [facility] [address] [place] [address] Dr. Gentry Harmon Iron [Mass/Vol] 58.0 ug/dL Normal 50.0-170.0 [facility] Comment on above: Performed By: #### FETIBC, VITAD, B12FOL #### [facility] [address] [place] [address] Dr. Gentry aHrmon TIBC DIRECT 369.0 ug/dL Normal 250.0-450. 0 [facility] Comment on above: Performed By: #### FETIBC, VITAD, B12FOL #### [facility] [address] [place] [address] Dr. Gentry Harmon PREALBUMINon 04-11-2022 Prealbumin [Mass/Vol] 27.8 mg/dL Normal 20.9-45.5 [facility] Comment on above: Performed By: #### CMP, PREALB #### [facility] [address] [place] [address] Dr. Gentry Harmon PROF 14(COMP METB)on 04-11- 022 Albumin [Mass/Vol] 3.3 g/dL Critically low 3.4-5.0 [facility] Comment on above: Performed By: #### CMP, PREALB #### [facility] [address] [place] [address] Dr. Gentry Harmon Albumin/Globulin [Mass ratio] 0.8 {ratio} Normal [facility] Comment on above: Performed By: #### CMP, PREALB #### [facility] [address] [place] [address] Dr. Gentry Harmon ALP [Catalytic activity/Vol] 89 U/L Normal 46-116 [facility] Comment on above: Performed By: #### CMP, PREALB #### [facility] [address] [place] [address] Dr. Gentry Harmon ALT [Catalytic activity/Vol] 16 U/L Normal 14-59 [facility] Comment on above: Performed By: #### CMP, PREALB #### [facility] [address] [place], [place] [address] Dr. Gentry Harmon Anion gap [Moles/Vol] 11.3 mmol/L Normal [facility] Comment on above: Performed By: #### CMP, PREALB #### [facility] [address] [address] [address] Gentry Harmon AST [Catalytic activity/Vol] 11 U/L Critically low 15-37 [facility] Comment on above: Performed By: #### CMP, PREALB #### [facility] [address] [address] [address] Gentry Harmon Bilirubin [Mass/Vol] 0.1 mg/dL Critically low 0.2-1.0 [facility] Comment on above: Performed By: #### CMP, PREALB #### [facility] [address] [place] [address] Dr. Gentry Harmon Calcium [Mass/Vol] 8.8 mg/dL Normal 8.5-10.1 [facility] Comment on above: Performed By: #### CMP, PREALB #### [facility] [address] [place] [address] Dr. Gentry Harmon Chloride [Moles/Vol] 103 mmol/L Normal 98-107 [facility] Comment on above: Performed By: #### CMP, PREALB #### [facility] [address] [place] [address] Dr. Gentry Harmon CO2 [Moles/Vol] 25.6 mmol/L Normal 21.0-32.0 [facility] Comment on above: Performed By: #### CMP, PREALB #### [facility] [address] [place] [address] Dr. Gentry Harmon Creatinine [Mass/Vol] 0.81 mg/dL Normal 0.55-1.02 [facility] Comment on above: Performed By: #### CMP, PREALB #### [facility] [address] [place] [address] Dr. Gentry Harmon EGFR-AF SRI LANKAN >60 Normal >=60 [facility] Comment on above: Performed By: #### CMP, PREALB #### [facility] [address] [address] [address] Gentry Harmon EGFR-NON AF SRI LANKAN >60 Normal >=60 [facility] Comment on above: Performed By: #### CMP, PREALB #### [facility] [address] [address] [address] Gentry Harmon Globulin (S) [Mass/Vol] 4.4 g/dL Normal [facility] Comment on above: Performed By: #### CMP, PREALB #### [facility] [address] [address] [address] Gentry Harmon Glucose [Mass/Vol] 101 mg/dL Normal 74-106 [facility] Comment on above: Performed By: #### CMP, PREALB #### [facility] [address] [place] [address] Dr. Gentry Harmon Potassium [Moles/Vol] 3.9 mmol/L Normal 3.5-5.1 [facility] Comment on above: Performed By: #### CMP, PREALB #### [facility] [address] [place] [address] Dr. Gentry Harmon Protein [Mass/Vol] 7.7 g/dL Normal 6.4-8.2 [facility] Comment on above: Performed By: #### CMP, PREALB #### [facility] [address] [place] [address] Dr. Gentry Harmon Sodium [Moles/Vol] 136 mmol/L Normal 136-145 [facility] Comment on above: Performed By: #### CMP, PREALB #### [facility] [address] [place] [address] Dr. Gentry Harmon Urea nitrogen [Mass/Vol] 10.0 mg/dL Normal 7.0-18.0 [facility] Comment on above: Performed By: #### CMP, PREALB #### [facility] [address] [place] [address] Dr. Gentry Harmon Urea nitrogen/Creatin ine [Mass ratio] 12.3 mg/mg Normal [facility] Comment on above: Performed By: #### CMP, PREALB #### [facility] [address] [address] [address] Gentry Harmon VIT B12 AND FOLATEon Cobalamin (Vitamin B12) [Mass/Vol] 226.0 pg/mL Normal 193.0-986. 0 [facility] Comment on above: Performed By: #### FETIBC, VITAD, B12FOL #### [facility] [address] [address] [address] Gentry Harmon FOLATE 3.20 ng/mL Critically low 8.60-58.90 [facility] Comment on above: Performed By: #### FETIBC, VITAD, B12FOL #### [facility] [address] [address] [address] Gentry Harmon VITAMIN D 25 OHon 04-11-2022 VIT D 25-OH 23.6 ng/mL Normal [facility] Comment on above: Performed By: #### FETIBC, VITAD, B12FOL #### [facility] [address] [address] [address] Gentry Harmon VIT D RANGES SEE BELOW Normal [facility] Comment on above: Result Comment: <20 ng/mL Vit D deficien t 20 - <30 ng/mL Vit D insufficient 30 - 100 ng/mL Vit D sufficient >100 ng/mL Potential Toxicity Performed By: #### F ETIBC, VITAD, B12FOL #### [facility] [address] [place] [address] Dr. Gentry Harmon XR LSPINE 2_3 VIEWSon [...] by: ESTELLA ALVES Date: 2022-04-01 19:22 Normal [facility] CT ABD/PEL W IVCONon 022 CT ABD/PEL W IVCON * * *Final Report* * * DATE OF EXAM: Feb 12 2022 2:57PM [facility] 0530 - CT ABD/PEL W IVCON / [...] lesions. Lower thorax: Lower lungs are clear. Cutter Operator Helper (topogram) images: Unremarkable. IMPRESSION: No acute process in the abdomen or pelvis. Senior Payroll Specialist: PSCB Transcribe Date/Time: Feb 12 2022 3:04P Dictated by : MARIELA GRECO MD This examination was interpreted and the report reviewed and electronically signed by: MARIELA GRECO MD on Feb 12 2022 3:19PM EST [id number] Normal [facility] NURSING PROGon 02-12-2022 NURSING PROG HNO ID: [id number] Author: Elizabeth Stephens RN Service: Radiology Author [...] DATE: February 12, 2022 TIME: 2:30 PM [facility] POSTPROC EVALon 022 ANES POSTPROC EVAL HNO ID: [id number] Author: Carolina Pink MD Service: Anesthesiology Author [...] Granda MD; Carolina Pink MD; Sami Murcia APRN.STOCK LAYER Responsible Provider: Carolina Pink MD Anesthesia Type: [...] December 18, 2021 TIME: 3:11 PM CSN: [id number] [facility] ANES PRE-OPon 12-18-2021 ANES PRE-OP HNO ID: [id number] Author: Carolina Pink MD Service: Anesthesiology Author Type: Physician Type: Anesthesia Preprocedure Evaluation Filed: 12/18/2021 11:23 AM Note Text: ANESTHESIOLOGY DAY OF SURGERY NOTE : 1985 Procedure Information Date/Time: 12/18/21 1115 Scheduled providers: Joe Granda MD; Carolina Pink MD; Sami Murcia APRN.STOCK LAYER Procedure: EGD DIAGNOSTIC Location: Procedures Estimated body [...] December 18, 2021 TIME: 11:22 AM CSN: [id number] Normal [facility] EGD DIAGNOSTICon 12-18-2021 [facility] Upper GI endoscopyon 022 Upper GI endoscopy [facility] Gastrointestinal Endoscopy Patient Name: Susi Ortiz Procedure Date: 12/18/2021 12:11 PM Date of : 1985 Admit Type: Outpatient Age: 36 Room: AV PROCEDURE A Gender: Female Note Status: Finalized Attending MD: Joe Granad MD Procedure: Upper GI endoscopy Indications: Epigastric [...] by the physician, the nurse and the dispatch officer in the pre-procedure area in the endoscopy [...] previously scheduled. Procedure Code(s): --- Professional --- 82619, Esophagogastroduodenoscopy, flexible, transoral; diagnostic, including collection of specimen(s) by brushing or washing, when performed (separate procedure) Diagnosis Code(s): --- Professional --- Z98.84, Bariatric surgery status R10.13, Epigastric pain R12, Heartburn K95.89, Other complications of other bariatric procedure CPT copyright 2019 [employer]. All rights reserved. The codes documented in this report are preliminary and upon inspector balance wheel motion review may be revised to meet current compliance requirements. Attending Participation: I personally performed the entire procedure. Scope In: 12:23:05 PM Scope Out: 12:26:48 PM MD Joe Gomez MD 12/18/2021 12:32:03 PM This report has been signed electronically by Joe Granda MD Number of Addenda: 0 Note Initiated On: 12/18/2021 12:11 PM Estimated Blood Loss: Estimated blood loss: none. [facility] HISTORY PHYSICALon HISTORY PHYSICAL HNO ID: [id number] Author: Melissa Olivas PA-C Service: ? Author Type: Physician [facility] Owner Type: HANDP Filed: 12/10/2021 1:13 PM Note Text: HISTORY AND PHYSICAL EXAMINATION SERVICE DATE: 12/05/2021 SERVICE TIME: 1:12 PM PRIMARY CARE PHYSICIAN: Rosaura Estrada, AQUARIUM SPECIALIST, AQUARIUM SPECIALIST This is a virtual visit using alternative [...] Negative for: dysuria, frequent urination and hematuria. AMMUNITION SPECIALIST: +amenorrhea with IUD Endocrine: Negative for: diabetes [...] daily. Takin (more content not included)... Normal [facility] XR foot LT min 3V*on 022 XR foot LT min 3V* [facility] [employer] Other XR foot LT min 3V* [facility] Other XR foot LT min 3V* [address] [place] [address] pinion-pins Other XR foot LT min 3V* [place] [id number] pinion-pins Other XR foot LT min 3V* XRay Report [employer]pins Other XR foot LT min 3V* Signed [employer] Other XR foot LT min 3V* Patient: Susi Ortiz MR#: M [employer]pins Other XR foot LT min 3V* [id number] [employer] Other XR foot LT min 3V* : 1985 Acct:[id number] pinion-pins Other XR foot LT min 3V* Age/Sex: 36 / F ADM Date: 11/13/21 pinion-pins Other XR foot LT min 3V* Loc: XDUCLY Room: Type: REG CLI [employer]ion-pins Other XR foot LT min 3V* Attending Dr: Christa JONES pinion-pins Other XR foot LT min 3V* Ordering Provider: ROBERT Feliciano pinion-pins Other XR foot LT min 3V* Date of Service: 11/13/21 pinion-pins Other XR foot LT min 3V* XR/XR foot LT min 3V*: Left foot pain pinion-pins Other XR foot LT min 3V* Copies to: ROBERT Feliciano pinion-pins Other XR foot LT min 3V* Left foot 11/13/2021. pinion-pins Other XR foot LT min 3V* CLINICAL DATA: Left foot pain. N [employer] Other XR foot LT min 3V* FINDINGS: 3 views of the left foot were obtained and are compared with a prior study 03/21/2019. pinion-pins Other XR foot LT min 3V* No acute fracture or dislocation is identified. There is calcaneal spurring. No other bony [employer]ion[employer]pins Other XR foot LT min 3V* abnormality is seen. No localized soft tissue swelling is noted. pinion-pins Other XR foot LT min 3V* XR/XR foot LT min 3V* [employer]pins Other XR foot LT min 3V* IMPRESSION: Calcaneal spurring. No acute bony abnormality. pinion-pins Other XR foot LT min 3V* Impression dictated by: Pawan Gallardo Jr., M.D.11/13/2021 11:30 AM pinion-pins Other XR foot LT min 3V* Dictation Location: [place] [address] pinion-pins Other XR foot LT min 3V* Transcribed By: GENO 11/13/21 1130 pinion-pins Other XR foot LT min 3V* Dictated By: Pawan Gallardo Jr, MD 11/13/21 1127 pin[employer]-pins Other XR foot LT min 3V* Signed By: pinion-pins Other XR foot LT min 3V* 11/13/21 1130 pinion-pins Other MORTGAGE LOAN OFFICER ORIGINATOR - Office Visiton 04-0 MORTGAGE LOAN OFFICER ORIGINATOR - Office Visit Diagnoses/Problems Assessed Adnexal mass (625.8) (N94.89) Pelvic pain (R10.2) Orders Alpha Fetoprotein, Serum; Status:Active; Requested for:30Sep2021; Cancer Antigen, 125; Status:Active; Requested for:30Sep2021; Cancer Antigen, GI Ca 19-9; Status:Active; Requested [...] options and next steps. Plan: [x ] AMMUNITION SPECIALIST ultrasound, patient is to contact our office to schedule [x ] we will check tumor markers [x ] our office staff will reach out to the patient to sign medical record release forms for her operative procedures performed at [facility] [x ] patient is to follow-up with me once this work-up is complete A copy of this note was sent electronically to Dr. Cherri Horvath MD [facility] [phone] [place] [phone] [place] Provider Impressions Susi is a 36-year-old female [...] options and next steps. Plan: [x ] AMMUNITION SPECIALIST ultrasound, patient is to contact our office to schedule [x ] we will check tumor markers [x ] our office staff will reach out to the patient to sign medical record release forms for her operative procedures performed at [facility] [x ] patient is to follow-up with me once this work-up is complete A copy of this note was sent electronically to Dr. Cherri Horvath MD Reproductive Endocrinology and Infertility [facility] [phone] [place] [phone] [place] Appointment Duration:. 45 minutes; greater than half [...] Cyst on Right Ovary. History of Present [id number]/30/2021 9:15AM SUSI ORTIZ , 36 year is contacted for an (audio-visual, or audio only) Telehealth visit. Today's visit was provided through telemedicine conferencing: Using [employer] platform. Consent: The concept of telemedicine? has [...] She went in for evaluation with her MORTGAGE LOAN OFFICER ORIGINATOR in early January 2021, and was subsequently found to have a complex ovarian cyst. She was taken (more content not included)... Normal [facility] Tobacco Screening.on Fall risk assessment a) No falls within the last year DQ-[id number]-Rbvn [place] [facility] Work Phone: Last menstrual period start date MIRENA QH-FTNYK-Rmfr ker [facility] Work Phone: Tobacco use status CPHS b) No LC-JTBUK-Paue [place] [facility] Work Phone: POCT urine pregnancyon 04-06 Beta HCG ( test) Ql (U) Negative NEGATIVE [place], [place] Comment on above: Specimens with hCG levels near the thres hold of the test (25 mIU/mL) may give a negative or indeterminate result. In such cases, another test should be performed with a new specimen in 48-72 hours. If early is suspected clinically in this setting, correlation with quantitative serum b-hCG level is suggested. TESTING PERFORMED AT [address] [address] Surgical Pathologyon Surgical Pathology (NOTE) -- Diagnosis -- STOMACH, [...] BIOPSY TO RULE OUT H. PYLORI STAIN [place]-johnson tissue fragments, each 0.2 x 0.2 x [...] SURGICAL PATHOLOGY CONSULTATION Patient Name: SUSI ORTIZ [facility] Rec: [id number] Path Number: [id number] [facility] ANATOMIC PATHOLOGY [address] [place] [address]. [place], [place] [address] Normal [facility] Comment on above: Performed By: #### PPPVS #### [address] [id number] Consumer Insights Specialist: Tito Balderrama MD [id number] 04-04-2020 SARS-CoV-2 Not Detected Normal Not Detected [facility] Comment on above: Result Comment: (NOTE) This nucleic acid amplification test was developed and its performance characteristics determined by [employer]. Nucleic acid amplification tests include PCR and [...] detected) result in this assay. Performed At: [facility] [address] [facility], [place] [id number] You Naqvi MD Ph:[phone] Performed By: #### A COV #### [facility] [address] [place] [address] Consumer Insights Specialist: Olivier Espinosa MD Covid-19 Ambulatoryon 2019 SARS-CoV-2, ASH Not Detected Not Detected [place], [place] Comment on above: (NOTE) This nucleic acid amplification test was developed and its performance characteristics determined by [employer]. Nucleic acid amplification tests include PCR and [...] detected) result in this assay. Performed At: [facility] [address] [facility], [place] [id number] You Naqvi MD Ph:[phone] Drug Scr,Pain Mgmt Uon 01-09 7-Aminoclonazep, Ur Not Detected Normal [facility] Comment on above: Performed By: #### ADAUPM ####[place] [address] [facility] [place] [address] Acetaminophen mass conc Not Detected Normal [facility] Comment on above: Performed By: #### ADAUPM ####[facility] [facility] [place] [address] Avsxe-AG-Qzkqii, Ur Not Detected Normal [facility] Comment on above: Performed By: #### ADAUPM ####[place] [address] [facility] [place] [address] Alprazolam, Ur Not Detected Normal [facility] Comment on above: Performed By: #### ADAUPM ####[facility] [place] [address] Amphetamine, Ur Not Detected Normal [facility] Comment on above: Performed By: #### ADAUPM ####[facility] [place] [address] Barbiturates, Ur Not Detected Normal [facility] Comment on above: Performed By: #### ADAUPM ####[facility] [place] [address] Benzoylecgonine, Ur Not Detected Normal [facility] Comment on above: Performed By: #### ADAUPM ####[address] [address] Buprenorphine, Ur Not Detected Normal [facility] Comment on above: Performed By: #### ADAUPM ####[address] [address] Carisoprodol, Ur Not Detected Normal [facility] Comment on above: Result Comment: (NOTE)The carisoprodol i mmunoassay has cross-reactivity to carisoprodoland meprobamate. Performed By: #### A DAUPM ####[facility] [place] [address] Clonazepam, Ur Not Detected Normal [facility] Comment on above: Performed By: #### ADAUPM ####[address] [address] Codeine, Ur Not Detected Normal [facility] Comment on above: Performed By: #### ADAUPM ####[address] [address] Creatinine 52.1 mg/dL Normal 20.0-400.0 [facility] Comment on above: Performed By: #### ADAUPM ####[address] [address] Diazepam, Ur Not Detected Normal [facility] Comment on above: Performed By: #### ADAUPM ####[address] [address] EER Hi Res Interp Ur See Note Normal [facility] Comment on above: Result Comment: (NOTE)Access Knip ed Report using either link below:-Direct access: [email or web address] Username, Password: [email or web address]://Explain My SurgeryUsername: [email or web address] by [facility],[address] [place] [id number] sdi.[facility], Ari Lowe MD, Lab. DirectorPerformed at [address] [address] Performed By: #### A DAUPM ####[address] [address] Fentanyl, Ur Not Detected Normal [facility] Comment on above: Performed By: #### ADAUPM ####[address] [address] Glucose mass conc Not Detected Normal [facility] Comment on above: Performed By: #### ADAUPM ####[address] [address] Hydrocodone, Ur Not Detected Normal [facility] Comment on above: Performed By: #### ADAUPM ####[address] [place] [address] Hydromorphone, Ur Not Detected Normal [facility] Comment on above: Performed By: #### ADAUPM ####[facility] [place] [address] Lorazepam, Ur Not Detected Normal [facility] Comment on above: Performed By: #### ADAUPM ####[facility] [place] [address] Marijuana Metab, Ur Not Detected Normal [facility] Comment on above: Performed By: #### ADAUPM ####[address] [address] MDA, Ur Not Detected Normal [facility] Comment on above: Performed By: #### ADAUPM ####[address] [address] MDEA, Nikki, Ur Not Detected Normal [facility] Comment on above: Performed By: #### ADAUPM ####[address] [address] MDMA, Ecstasy, Ur Not Detected Normal [facility] Comment on above: Performed By: #### ADAUPM ####[address] [address] Meperidine metab, Ur Not Detected Normal [facility] Comment on above: Performed By: #### ADAUPM ####[address] [address] Methadone, Ur Not Detected Normal [facility] Comment on above: Performed By: #### ADAUPM ####[address] [address] Methamphetamine, Ur Not Detected Normal [facility] Comment on above: Performed By: #### ADAUPM ####[facility] [facility] [place] [address] Methylphenidate Not Detected Normal [facility] Comment on above: Performed By: #### ADAUPM ####[facility] [place] [address].[place] [address] Midazolam, Ur Not Detected Normal [facility] Comment on above: Performed By: #### ADAUPM ####[facility] [place] [address], [place] [address] Morphine, Ur Not Detected Normal [facility] Comment on above: Performed By: #### ADAUPM ####[facility] [place] [address].[facility] [place] [address] Norbuprenorphine , Ur Not Detected Normal [facility] Comment on above: Performed By: #### ADAUPM ####[facility] [place] [address], [place] [address] Nordiazepam, Ur Not Detected Normal [facility] Comment on above: Performed By: #### ADAUPM ####[facility] [place] [address] [place] [address] Norfentanyl, Ur Not Detected Normal [facility] Comment on above: Performed By: #### ADAUPM ####[facility] [place] [address] [place] [address] Norhydrocodone, Ur Not Detected Normal [facility] Comment on above: Performed By: #### ADAUPM ####[facility] [place] [address] [place] [address] Noroxycodone, Ur Not Detected Normal [facility] Comment on above: Performed By: #### ADAUPM ####[facility] [facility] [place] [address] Noroxymorphone, Ur Not Detected Normal [facility] Comment on above: Performed By: #### ADAUPM ####[facility] [facility] [place] [address] Oxazepam, Ur Not Detected Normal [facility] Comment on above: Performed By: #### ADAUPM ####[facility] [facility] [place] [address] Oxycodone, Ur Not Detected Normal [facility] Comment on above: Performed By: #### ADAUPM ####[facility] [facility] [place] [address] Oxymorphone, Ur Not Detected Normal [facility] Comment on above: Performed By: #### ADAUPM ####[facility] [facility] [place] [address] Pain Mgt Drg Handley, Ur See Below Normal [facility] Comment on above: Result Comment: (NOTE)Methodology: Quali [...] was developed and its performance characteristicsdetermined by [facility]. The U.S. Food and DrugAdministration has not approved or cleared this test; however, FDAclearance or approval is not currently required for clinical use.The results are not intended to be used as the sole means forclinical diagnosis or patient management decisions. Performed By: #### A DAUPM ####[facility] [facility].[place], [place] [id number] PCP, Ur Not Detected Normal [facility] Comment on above: Performed By: #### ADAUPM ####[place] [address] [facility].[place], [place] [id number] Phentermine, Ur Not Detected Normal [facility] Comment on above: Performed By: #### ADAUPM ####[facility] [place], [place] [id number] Pn Mg Drg Handley Int Ur Consistent Normal [facility] Comment on above: Result Comment: (NOTE) _DRUGS EXPECTED:NO DRUGS EXPECTED ___CONSISTENT with medications provided:NO DRUGS DETECTED ___INTERPRETIVE INFORMATION:Pain Mgt Handley, High Res/EMIT, Ur, InterpInterpretation depends on accuracy and completeness of patientmedication information submitted by client. Performed By: #### A DAUPM ####[address] [place] [address] Propoxyphene, Ur Not Detected Normal [facility] Comment on above: Performed By: #### ADAUPM ####[address] [place] [address] Tapentadol o Sul, Ur Not Detected Normal [facility] Comment on above: Performed By: #### ADAUPM ####[address] [place] [address] Tapentadol, Ur Not Detected Normal [facility] Comment on above: Performed By: #### ADAUPM ####[address] [place] [address] Temazepam, Ur Not Detected Normal [facility] Comment on above: Performed By: #### ADAUPM ####[address] [place] [address] Tramadol, Ur Not Detected Normal [facility] Comment on above: Performed By: #### ADAUPM ####[address] [place] [address] Zolpidem, Ur Not Detected Normal [facility] Comment on above: Performed By: #### ADAUPM ####[address] [place] [address] Drug Scr,Pain Mgmt Uon 01-06 Drugs Expected, Ur NONE Normal [facility] Comment on above: Performed By: #### ADAUPM ####[address] [address] Vital Signs Date Time Vital Sign Value Performing Clinician Facility 05-05-2024 10:53-0500 Body height 162.[address] Work Phone: [facility] 05-05-2024 10:53-0500 Body mass index (BMI) [Ratio] 63.17 kg/m2 Karon Monsivais RD Work Phone: [facility] 05-05-2024 10:53-0500 Body weight 166.[address] Work Phone: [facility] Comment on above: verbal, per patient 04-27-2024 11:49-0400 Body mass index (BMI) [Ratio] 63.48 kg/m2 Bushra Nevarez FINANCIAL INSTITUTION BRANCH MANAGER Work Phone: [facility] 04-27-2024 11:49-0400 Body weight 167.74 kg Bushra Nevarez FINANCIAL INSTITUTION BRANCH MANAGER Work Phone: [facility] 04-19-2024 11:15-0400 Body mass index (BMI) [Ratio] 63.2 kg/m2 Amina Nieto MD Work Phone: [facility] 04-19-2024 11:15-0400 Body weight 167.01 kg Amina Nieto MD Work Phone: [facility] 11-03-2023 10:45-0400 Body mass index (BMI) [Ratio] 63.34 kg/m2 Amina Nieto MD Work Phone: [facility] 11-03-2023 10:45-0400 Body weight 167.38 kg Amina Nieto MD Work Phone: [facility] 11-02-2023 12:53-0400 Body mass index (BMI) [Ratio] 63.34 kg/m2 Jayshree Huffman TELEPHONE ENGINEER.AQUARIUM SPECIALIST Work Phone: [facility] 11-02-2023 12:53-0400 Body weight 167.38 kg Jayshree Huffman TELEPHONE ENGINEER.AQUARIUM SPECIALIST Work Phone: [facility] 11-02-2023 10:22-0400 Body height 162.[address] Work Phone: [facility] 11-02-2023 10:22-0400 Body mass index (BMI) [Ratio] 63.48 kg/m2 Mary Sayra RD Work Phone: [facility] 11-02-2023 10:22-0400 Body weight 167.[address] Work Phone: [facility] Comment on above: verbal 09-07-2023 09:30-0400 Body height 162.6 cm Jayshree Huffman TELEPHONE ENGINEER.AQUARIUM SPECIALIST Work Phone: [facility] 09-07-2023 09:30-0400 Body temperature 98.01 [degF] Jayshree Huffman TELEPHONE ENGINEER.AQUARIUM SPECIALIST Work Phone: [facility] 09-07-2023 09:30-0400 Body weight 169.87 kg Jayshree Huffman TELEPHONE ENGINEER.AQUARIUM SPECIALIST Work Phone: [facility] 09-07-2023 09:30-0400 Diastolic blood pressure 81 mm[Hg] Jayshree Huffman TELEPHONE ENGINEER.AQUARIUM SPECIALIST Work Phone: [facility] 09-07-2023 09:30-0400 Heart rate 80 /min Jayshree Huffman TELEPHONE ENGINEER.AQUARIUM SPECIALIST Work Phone: [facility] 09-07-2023 09:30-0400 Systolic blood pressure 107 mm[Hg] Jayshree Huffman TELEPHONE ENGINEER.AQUARIUM SPECIALIST Work Phone: [facility] 08-31-2023 12:07-0500 Body height 162.[address] Work Phone: [facility] 08-31-2023 12:07-0500 Body weight 164.[address] Work Phone: [facility] 08-19-2023 12:14-0500 Body height 162.[address] Work Phone: [facility] 08-19-2023 12:14-0500 Body weight 167.[address] Work Phone: [facility] 08-17-2023 09:52-0500 Body height 162.6 cm Jayshree Huffman TELEPHONE ENGINEER.AQUARIUM SPECIALIST Work Phone: [facility] 08-17-2023 09:52-0500 Body temperature 97.3 [degF] Jayshree Huffman TELEPHONE ENGINEER.AQUARIUM SPECIALIST Work Phone: [facility] 08-17-2023 09:52-0500 Body weight 167.8 kg Jayshree Huffman TELEPHONE ENGINEER.AQUARIUM SPECIALIST Work Phone: [facility] 08-17-2023 09:52-0500 Diastolic blood pressure 75 mm[Hg] Jayshree Gita TELEPHONE ENGINEER.AQUARIUM SPECIALIST Work Phone: [facility] 08-17-2023 09:52-0500 Heart rate 75 /min Jayshree Gita TELEPHONE ENGINEER.AQUARIUM SPECIALIST Work Phone: [facility] 08-17-2023 09:52-0500 SaO2% (BldA) [Mass fraction] 97 % Jayshree Huffman TELEPHONE ENGINEER.AQUARIUM SPECIALIST Work Phone: [facility] 08-17-2023 09:52-0500 Systolic blood pressure 117 mm[Hg] Jayshree Sampsonyd TELEPHONE ENGINEER.AQUARIUM SPECIALIST Work Phone: [facility] 03-10-2023 13:33-0400 Body height 162.6 cm Pacc 2 Work Phone: [facility] 03-10-2023 13:33-0400 Body temperature 97 [degF] Pacc 2 Work Phone: [facility] 03-10-2023 13:33-0400 Body weight 181.44 kg Pacc 2 Work Phone: [facility] 03-10-2023 13:33-0400 Diastolic blood pressure 66 mm[Hg] Pacc 2 Work Phone: [facility] 03-10-2023 13:33-0400 Heart rate 73 /min Pacc 2 Work Phone: [facility] 03-10-2023 13:33-0400 Respiratory rate 16 /min Pacc 2 Work Phone: [facility] 03-10-2023 13:33-0400 SaO2% (BldA) [Mass fraction] 97 % Pacc 2 Work Phone: [facility] 03-10-2023 13:33-0400 Systolic blood pressure 138 mm[Hg] Pacc 2 Work Phone: [facility] 03-05-2023 12:54-0400 Body height [address] Work Phone: [facility] 12-15-2022 15:09-0400 Body height [address] Work Phone: [facility] 12-15-2022 15:09-0400 Body weight 174.[address] Work Phone: [facility] 12-13-2022 09:30-0400 Body height 162.56 cm Linda South Other [facility] Other 12-13-2022 09:30-0400 Body mass index (BMI) [Ratio] 66.08 kg/m2 Linda South Other [facility] Other 12-13-2022 09:30-0400 Body temperature 98.2 [degF] Linda South Other [facility] Other 12-13-2022 09:30-0400 Body weight 174.64 kg Linda South Other [facility] Other 12-13-2022 09:30-0400 Respiratory rate 18 /min Linda South Other [facility] Other 12-13-2022 09:30-0400 SaO2% (BldA) [Mass fraction] 96 % Linda South Other [facility] Other 06-04-2022 11:04-0500 Body weight 185.07 kg Amina Nieto MD Work Phone: [facility] 04-16-2022 19:25-0400 Body height 162.56 cm Christa Tyler Other [facility] Other 04-16-2022 19:25-0400 Body mass index (BMI) [Ratio] 60.07 kg/m2 Christa Tyler Other [facility] Other 04-16-2022 19:25-0400 Body temperature 98.6 [degF] Christa Tyler Other [facility] Other 04-16-2022 19:25-0400 Body weight 158.76 kg Christa Tyler Other [facility] Other 04-16-2022 19:25-0400 Respiratory rate 18 /min Christa Tyler Other [facility] Other 04-16-2022 19:25-0400 SaO2% (BldA) [Mass fraction] 97 % Christa Tyler Other [facility] Other 01-17-2022 09:12-0400 Body height [address] Work Phone: [facility] 01-17-2022 09:12-0400 Body weight 179.[address] Work Phone: [facility] 12-18-2021 12:45-0400 Diastolic blood pressure 103 mm[Hg] Joe Granda MD Work Phone: [facility] 12-18-2021 12:45-0400 SaO2% (BldA) [Mass fraction] 100 % Joe Granda MD Work Phone: [facility] 12-18-2021 12:45-0400 Systolic blood pressure 123 mm[Hg] Joe Granda MD Work Phone: [facility] 12-18-2021 12:34-0400 Body temperature 96.91 [degF] Joe Granda MD Work Phone: [facility] 12-18-2021 12:34-0400 Heart rate 106 /min Joe Granda MD Work Phone: [facility] 12-18-2021 12:34-0400 Respiratory rate 20 /min Joe Granda MD Work Phone: [facility] 11-13-2021 11:30-0400 Body height 162.56 cm Christa Tyler Other [facility] Other 11-13-2021 11:30-0400 Body mass index (BMI) [Ratio] 68.65 kg/m2 Christa Nayeli Other [facility] Other 11-13-2021 11:30-0400 Body temperature 98.3 [degF] Christa Nayeli Other [facility] Other 11-13-2021 11:30-0400 Body weight 181.44 kg Christa Nayeli Other [facility] Other 11-13-2021 11:30-0400 Diastolic blood pressure 77 mm[Hg] Christaraymundo Tyler Other [facility] Other 11-13-2021 11:30-0400 Respiratory rate 18 /min Christaraymundo Tyler Other [facility] Other 11-13-2021 11:30-0400 SaO2% (BldA) [Mass fraction] 100 % Christa Tyler Other [facility] Other 11-13-2021 11:30-0400 Systolic blood pressure 125 mm[Hg] Christa Tyler Other [facility] Other 11-04-2021 12:44-0400 Body height [address] Work Phone: [facility] 11-04-2021 12:44-0400 Body weight 184.[address] Work Phone: [facility] 11-04-2021 11:13-0400 Body height 160 cm Joe Granda MD Work Phone: [facility] 11-04-2021 11:13-0400 Body weight 184.61 kg Joe Granda MD Work Phone: [facility] 11-04-2021 11:13-0400 Diastolic blood pressure 74 mm[Hg] Joe Granda MD Work Phone: [facility] 11-04-2021 11:13-0400 Heart rate 86 /min Joe Granda MD Work Phone: [facility] 11-04-2021 11:13-0400 Systolic blood pressure 133 mm[Hg] Joe Granda MD Work Phone: [facility] 10-11-2021 14:45-0400 Body height 162.56 cm Bambi Gonzalez Other [facility] Other 10-11-2021 14:45-0400 Body mass index (BMI) [Ratio] 64.36 kg/m2 Bambi Gonzalez Other [facility] Other 10-11-2021 14:45-0400 Body temperature 97.3 [degF] Bambi Gonzalez Other [facility] Other 10-11-2021 14:45-0400 Body weight 170.1 kg Bambi Gonzalez Other [facility] Other 10-11-2021 14:45-0400 Respiratory rate 26 /min Bambi Gonzalez Other [facility] Other 10-11-2021 14:45-0400 SaO2% (BldA) [Mass fraction] 94 % Bambi Gonzalez Other [facility] Other 10-03-2021 13:25-0400 Body height 162.56 cm Mary Blakely Other [facility] Other 10-03-2021 13:25-0400 Body mass index (BMI) [Ratio] 68.82 kg/m2 Mary Blakely Other [facility] Other 10-03-2021 13:25-0400 Body temperature 97.5 [degF] Mary Blakely Other [facility] Other 10-03-2021 13:25-0400 Body weight 181.89 kg Mary Blakely Other [facility] Other 10-03-2021 13:25-0400 Diastolic blood pressure 57 mm[Hg] Mary Blakely Other [facility] Other 10-03-2021 13:25-0400 Respiratory rate 18 /min Mary Blakely Other [facility] Other 10-03-2021 13:25-0400 SaO2% (BldA) [Mass fraction] 99 % Mary Blakely Other [facility] Other 10-03-2021 13:25-0400 Systolic blood pressure 118 mm[Hg] Mary Blakely Other [facility] Other 09-30-2021 09:03-0400 Body height 162.56 cm Prince Horvath Work Phone: EV-GZIST[facility]Oqdkrjo [facility] Work Phone: 09-30-2021 09:03-0400 Body mass index (BMI) [Ratio] 60.08 kg/m2 Prince Horvath Work Phone: AH-PLRPF-Cbqigfz [facility] Work Phone: 09-30-2021 09:03-0400 Body surface area Derived from formula 2.48 m2 Prince Horvath Work Phone: GG-CAOGQ-Ahhzgwc [facility] Work Phone: 09-30-2021 09:03-0400 Body weight 158.76 kg Prince Horvath Work Phone: DV-NZCJI-Boocuye [facility] Work Phone: 09-30-2021 09:03-0400 2 1 Prince Horvath Work Phone: UV-MEJGL-Vzfgwcu [facility] Work Phone: Comment on above: GRAV PARA 09-30-2021 09:03-0400 0 1 Prince Horvath Work Phone: IO-NNGAH-Rszchgi [facility] Work Phone: Comment on above: [employer] 09-23-2021 11:00-0400 Body height 160 cm Jayshree Huffman APRN.AQUARIUM SPECIALIST Work Phone: [facility] 09-23-2021 11:00-0400 Body weight 165.56 kg Jayshree Huffman APRN.AQUARIUM SPECIALIST Work Phone: [facility] 05-17-2021 11:18-0500 Body height 160 cm Humza Walter MD Work Phone: [facility] 05-17-2021 11:18-0500 Body mass index (BMI) [Ratio] 68.09 kg/m2 Humza Walter MD Work Phone: [facility] 05-17-2021 11:18-0500 Body temperature 96.3 [degF] Humza Walter MD Work Phone: [facility] 05-17-2021 11:18-0500 Body weight 174.36 kg Humza Walter MD Work Phone: [facility] 05-17-2021 11:18-0500 Diastolic blood pressure 77 mm[Hg] Humza Walter MD Work Phone: [facility] 05-17-2021 11:18-0500 Heart rate 75 /min Humza Walter MD Work Phone: [facility] 05-17-2021 11:18-0500 SaO2% (BldA) [Mass fraction] 95 % Humza Walter MD Work Phone: [facility] 05-17-2021 11:18-0500 Systolic blood pressure 133 mm[Hg] Humza Walter MD Work Phone: [facility] 04-06-2020 09:25-0400 BP Diastolic 77 mm[Hg] [facility] 04-06-2020 09:25-0400 BP Systolic 129 mm[Hg] [facility] 04-06-2020 09:25-0400 Pulse (Heart Rate) 85 /min [facility] [place] 04-06-2020 09:25-0400 Pulse Oximetry 100 % [facility] 04-06-2020 09:25-0400 Respiratory Rate 17 /min [facility] 04-06-2020 08:54-0400 Body Temperature 97.81 [degF] [facility] 04-06-2020 08:06-0400 BMI (Body Mass Index) 64.68 kg/m2 [facility] 04-06-2020 08:06-0400 Body weight 165.62 kg [facility] H, RADHA 04-06-2020 08:06-0400 Height 160 cm Kylah [facility], RADHA Encounters Encounter Date Encounter Type Care Provider Facility Start: 05-13-2024 ambulatory Zohra Roberts Facility:[facility] Start: 05-12-2024 End: 05-12-2024 ambulatory Rohini Landrum Facility:[facility] Start: 05-05-2024 End: 05-05-2024 ambulatory [facility] Facility:[facility] Start: 05-05-2024 End: 05-05-2024 Patient encounter procedure Karon Monsivais BRENDON Work Phone: [facility] Comment on above: Impaired intestinal absorption (Primary Dx); S/P biliopancreatic diversion with duodenal switch; Class 3 severe obesity with body mass index (BMI) of 60.0 to 69.9 in adult, unspecified obesity type, unspecified whether serious comorbidity present (HCC); Dietary counseling and surveillance Start: 05-05-2024 End: 05-05-2024 Telemedicine consultation with patient Karon Monsivais BRENDON Work Phone: [facility] Start: 04-29-2024 End: 04-29-2024 ambulatory [facility] Facility:[facility] Start: 04-28-2024 End: 04-28-2024 Telephone encounter Prince Colindres HEAD SHIPPER [facility] Comment on above: Cx PT (She called & lm noting she just received a phone call from school and 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 She said she will be here next week for PT.) Start: 04-27-2024 End: 04-27-2024 Bamboo flowsheet Bushra Nevarez FINANCIAL INSTITUTION BRANCH MANAGER Work Phone: [facility] Start: 04-27-2024 End: 04-27-2024 Bamboo flowsheet Bushra Nevarez FINANCIAL INSTITUTION BRANCH MANAGER Work Phone: [facility] Start: 04-27-2024 End: 04-27-2024 Office outpatient visit 25 minutes Bushra Nevarez FINANCIAL INSTITUTION BRANCH MANAGER Work Phone: [facility] Comment on above: Arthritis of right k nee (Primary Dx); Right knee pain, unspecified chronicity; Internal derangement of right knee; Contusion of right knee, initial encounter; Left knee pain, unspecified chronicity; Arthritis of left knee Start: 04-27-2024 End: 04-27-2024 ambulatory BUSHRA NEVAREZ Not Available Start: 04-21-2024 End: 04-21-2024 Bamboo flowsheet Prince Jens HEAD SHIPPER [facility] Start: 04-21-2024 End: 04-21-2024 Bamboo flowsheet Prince Colindres HEAD SHIPPER [facility] Start: 04-21-2024 End: 04-21-2024 ambulatory Prince Colindres HEAD SHIPPER [facility] Comment on above: Low back pain, unspe cified back pain laterality, unspecified chronicity, unspecified whether sciatica present (Primary Dx) Start: 04-19-2024 End: 04-19-2024 Bamboo flowsheet Sherry Cuellar PT [facility] Start: 04-19-2024 End: 04-19-2024 Bamboo flowsheet Sherry Cuellar PT [facility] Start: 04-19-2024 End: 04-19-2024 ambulatory Sherry Cuellar PT [facility] Comment on above: Low back pain, unspe cified back pain laterality, unspecified chronicity, unspecified whether sciatica present (Primary Dx) Start: 04-19-2024 End: 04-19-2024 Admission to same day surgery center Amina Nieto MD Work Phone: General Surgery Comment on above: S/P biliopancreatic diversion with duodenal switch (Primary Dx); BMI 60.0-69.9, adult (HCC); Prediabetes; S/P bariatric surgery Start: 04-19-2024 End: 04-19-2024 [facility] Start: 04-19-2024 End: 04-19-2024 Telemedicine consultation with patient Amina Nieto MD Work Phone: General Surgery Start: 04-13-2024 End: 04-13-2024 Bamboo flowsheet Bushra Nevarez FINANCIAL INSTITUTION BRANCH MANAGER Work Phone: [facility] Start: 04-13-2024 End: 04-13-2024 Bamboo flowsheet Bushra Mart Richardcorina FINANCIAL INSTITUTION BRANCH MANAGER Work Phone: [facility] Start: 04-13-2024 End: 04-13-2024 Office outpatient visit 25 minutes Bushra Nevarez FINANCIAL INSTITUTION BRANCH MANAGER Work Phone: [facility] Comment on above: Right knee pain, uns pecified chronicity (Primary Dx); Arthritis of right knee Start: 04-13-2024 End: 04-13-2024 ambulatory BUSHRA NEVAREZ Not Available Start: 04-12-2024 End: 04-12-2024 Telephone encounter Prince Colindres HEAD SHIPPER [facility] Comment on above: re: Next 2 PT's (She called noting her step-father had this morning and she is traveling out of town; she cx her PT today and on 04/14/24. I reminded and she confirmed PT on 04/19/24.) Start: 04-11-2024 End: 04-11-2024 Emergency department patient visit [facility] Start: 04-07-2024 End: 04-07-2024 Bamboo flowsheet Prince Colindres HEAD SHIPPER [facility] Start: 04-07-2024 End: 04-07-2024 Bamboo flowsheet Prince Jens HEAD SHIPPER [facility] Start: 04-07-2024 End: 04-07-2024 ambulatory Prince Jens HEAD SHIPPER [facility] Comment on above: Low back pain, unspe cified back pain laterality, unspecified chronicity, unspecified whether sciatica present (Primary Dx) Start: 04-06-2024 End: 04-06-2024 Emergency department patient visit [facility] Start: 03-31-2024 End: 03-31-2024 Bamboo flowsheet Prince Colindres HEAD SHIPPER [facility] Start: 03-31-2024 End: 03-31-2024 Bamboo flowsheet Prince Colindres HEAD SHIPPER [facility] Start: 03-31-2024 End: 03-31-2024 ambulatory Prince Jens HEAD SHIPPER [facility] Comment on above: Low back pain, unspe cified back pain laterality, unspecified chronicity, unspecified whether sciatica present (Primary Dx) Start: 03-29-2024 End: 03-29-2024 Bamboo flowsheet Prince Colindres HEAD SHIPPER [facility] Start: 03-29-2024 End: 03-29-2024 Bamboo flowsheet Prince Colindres HEAD SHIPPER [facility] Start: 03-29-2024 End: 03-29-2024 ambulatory Prince Colindres HEAD SHIPPER [facility] Comment on above: Low back pain, unspe cified back pain laterality, unspecified chronicity, unspecified whether sciatica present (Primary Dx) Start: 03-24-2024 End: 03-24-2024 ambulatory SHERRY CUELLAR Not Available Start: 03-17-2024 End: 03-17-2024 ambulatory PRINCE COLINDRES Not Available Start: 03-07-2024 End: 03-07-2024 ambulatory JAMIE HARLEY Not Available Start: 03-04-2024 End: 03-04-2024 Refill Amina Nieto MD Work Phone: General Surgery Comment on above: Refill Request Start: 03-04-2024 End: 03-04-2024 ambulatory SHERRY CUELLAR Not Available Start: 01-06-2024 End: 01-06-2024 ambulatory BUSHRA B APLING Not Available Start: 12-09-2023 End: 12-09-2023 ambulatory BUSHRA B APLING Not Available Start: 12-07-2023 End: 12-07-2023 Evaluation and management of inpatient YOSHI Kumar [facility] Start: 12-02-2023 End: 12-02-2023 Evaluation and management of inpatient OTILIO LEON [facility] Start: 11-27-2023 End: 11-27-2023 ambulatory ELIZABET SIMENTAL Facility:[facility] Start: 11-17-2023 End: 11-17-2023 ambulatory OTILIO LEON Not Available Start: 11-11-2023 End: 11-11-2023 ambulatory BUSHRA B APLING Not Available Start: 11-04-2023 End: 11-04-2023 Evaluation and management of inpatient YOSHI Kumar [facility] Start: 11-04-2023 End: 11-04-2023 Evaluation and management of inpatient [facility] Start: 11-03-2023 End: 11-03-2023 Admission to same day surgery center Amina Nieto MD Work Phone: General Surgery Comment on above: BMI 60.0-69.9, adult (HCC) (Primary Dx); S/P bariatric surgery Start: 11-03-2023 End: 11-03-2023 Telemedicine consultation with patient Amina Nieto MD Work Phone: General Surgery Start: 11-03-2023 End: 11-03-2023 ambulatory [facility] Facility:[facility] Start: 11-02-2023 End: 11-02-2023 Admission to same day surgery center Mary Colbert RD Work Phone: General Surgery Comment [...] surgery Start: 11-02-2023 End: 11-02-2023 [facility] Start: 11-02-2023 End: 11-02-2023 Telemedicine consultation with patient Mary Colbert RD Work Phone: General Surgery Start: 10-28-2023 End: 10-28-2023 [facility] Start: 10-20-2023 End: 10-20-2023 ambulatory [facility] Start: 10-20-2023 Encounter for other preprocedural examination [facility] Start: 10-20-2023 End: 10-22-2023 ambulatory [facility] Start: 10-13-2023 End: 10-13-2023 ambulatory [facility] Not Available Start: 10-07-2023 End: 10-07-2023 ambulatory BUSHRA NEVAREZ Not Available Start: 09-16-2023 End: 09-16-2023 ambulatory JAMIE HARLEY Not Available Start: 09-07-2023 End: 09-07-2023 [facility] Facility:[facility] Start: 09-07-2023 End: 09-07-2023 Patient encounter [...] present (HCC) Start: 09-01-2023 End: 09-01-2023 ambulatory JAMIE HARLEY Not Available Start: 08-31-2023 End: 08-31-2023 Admission to same day surgery center Mary Colbert RD Work Phone: General Surgery Comment on above: S/P bariatric surger y (Primary Dx); Body mass index (BMI) 60.0-69.9, adult (HCC); Dietary counseling and surveillance Start: 08-31-2023 End: 08-31-2023 ambulatory [facility] Facility:[facility] Start: 08-31-2023 End: 08-31-2023 Telemedicine consultation with patient Mary Colbert RD Work Phone: [facility] Start: 08-19-2023 End: 08-19-[address] Work Phone: Endocrinology BMI Comment on above: Impaired intestinal absorption (Primary Dx); S/P biliopancreatic diversion with duodenal switch; Class 3 severe obesity with body mass index (BMI) of 60.0 to 69.9 in adult, unspecified obesity type, unspecified whether serious comorbidity present (HCC); Dietary counseling and surveillance Start: 08-19-2023 End: 08-19-2023 Telemedicine consultation with patient Karon Monsivais RD Work Phone: [facility] Start: 08-17-2023 End: 08-17-2023 ambulatory ELIZABET RUMSCHLAG Facility:[facility] Start: 08-17-2023 End: 08-17-2023 Patient encounter procedure Jayshree Huffman APRNTanyaAQUARIUM SPECIALIST Work Phone: Endocrinology BMI Comment on above: S/P gastrointestinal surgery, follow-up exam (Primary Dx); Status post biliopancreatic diversion with duodenal switch; Post-operative nausea and vomiting Start: 08-13-2023 Telephone encounter Cynthia Peterson RN General Surgery Comment on above: Post Op Start: 08-04-2023 End: 08-11-2023 Evaluation and management of inpatient JOE GRANDA Facility:[facility] Start: 08-03-2023 Telephone encounter Gen Curry RN General Surgery Start: 07-22-2023 End: 07-22-2023 ambulatory ELIZABET RUMSCHLAG Facility:[facility] Start: 07-22-2023 Encounter for other preprocedural examination ELIZABET RUMSCHLAG [facility] Start: 07-21-2023 End: 07-21-2023 ambulatory ELIZABET RUMSCHLAG Facility:[facility] Start: 07-20-2023 End: 07-20-2023 ambulatory ELIZABET RUMSCHLAG Facility:[facility] Start: 07-14-2023 End: 07-14-2023 ambulatory ELIZABET RUMSCHLAG Facility:[facility] Start: 07-13-2023 End: 07-13-2023 ambulatory ELIZABET RUMSCHLAG Facility:[facility] Start: 05-09-2023 Admission to [facility] Joe Granda MD Work Phone: Endocrinology BMI Comment on above: About surgery Start: 05-09-2023 ambulatory Joe izquierdo MD Work Phone: [facility] Start: 05-08-2023 ambulatory Joe izquierdo MD Work Phone: General Surgery Comment on above: Confirming Or Date Start: 05-08-2023 E-mail encounter rajiv girard caregiver Joe Granda MD Work Phone: [facility] Start: 04-27-2023 Telephone encounter Joe sargent MD Work Phone: Endocrinology BMI Start: 04-13-2023 End: 04-13-[address] Work Phone: General Surgery Comment on above: Patient left without being seen (Primary Dx) Start: 04-13-2023 End: 04-13-2023 Telemedicine consultation with patient Mary Colbert RD Work Phone: [facility] Start: 03-31-2023 End: 04-01-2023 Evaluation and management of inpatient JOE GRANDA Facility:[facility] Start: 03-10-2023 End: 03-10-2023 PAT [facility] [facility] Work Phone: Pre Anesthesia Comment on above: Pre-op evaluation (P rimary Dx); Morbid obesity with body mass index of 60.0-69.9 in adult ([facility]); Gastroesophageal reflux disease, unspecified whether esophagitis present; TONEY on CPAP; Bipolar affective disorder, remission status unspecified ([facility]); Thrombocytosis; Migraine without status migrainosus, not intractable, unspecified migraine type Surgery question Start: 03-10-2023 End: 03-10-2023 Preprocedural examination done [facility] Work Phone: [facility] Work Phone: Start: 03-05-2023 End: 03-05-2023 [facility] Isabela Renee RD Work Phone: General Surgery Comment on above: Weight gain followin g gastric bypass surgery (Primary Dx); Abnormal weight gain; Preop testing; Snoring; Sleep-disordered breathing; Fatigue, unspecified type; S/P bariatric surgery; S/P gastric sleeve procedure; Dietary counseling and surveillance; BMI 60.0-69.9, adult (HCC) Start: 03-05-2023 End: 03-05-2023 Patient encounter status Isabela Renee RD Work Phone: [facility] Work Phone: Start: 01-05-2023 Telephone encounter Joe sargent MD Work Phone: Endocrinology BMI Comment on above: Schedule Surgery (DS ) Start: 12-15-2022 End: 12-15-2022 Admission to same day surgery center Isabela Renee RD Work Phone: General Surgery Comment on above: S/P gastric sleeve p rocedure (Primary Dx); Weight gain following gastric bypass surgery; BMI 60.0-69.9, adult (HCC); Dietary counseling and surveillance Start: 12-15-2022 End: 12-15-2022 Telemedicine consultation with patient Isabela Renee RD Work Phone: [facility] Start: 12-13-2022 Office outpatient vi sit 15 minutes Linda South [facility] [place] Start: 12-13-2022 End: 12-13-2022 ambulatory Linda South [facility] [employer] Other Start: 12-03-2022 Admission to same da y surgery center Joe Granda MD Work Phone: General Surgery Comment on above: Insurance Authorizat ion (Not Real Surgery Date) Start: 12-03-2022 ambulatory Joe izquierdo MD Work Phone: [facility] Start: 11-03-2022 End: 11-04-[address] DOCTOR ALFARO Facility:[facility] Start: 08-27-2022 End: 08-28-[address] DOCTOR ALFARO Facility:[facility] Start: 08-19-2022 End: 08-19-2022 ambulatory MICHELLE GOMEZ . Facility:[facility] Start: 08-17-2022 Encounter for other preprocedural examination DR DOCTOR ALFARO [facility] Start: 08-12-2022 End: 08-13-[address] DOCTOR ALFARO Facility:[facility] Start: 08-12-2022 End: 08-13-2022 Encounter for other preprocedural examination DR DOCTOR ALFARO Facility:[facility] Start: 07-22-[address] DOCTOR ALFARO Facility :[facility] Start: 06-04-2022 End: 06-04-2022 [facility] Amina Nieto MD Work Phone: Endocrinology BMI [...] Start: 04-16-2022 End: 04-16-2022 ambulatory Christa Tyler Facility:[facility] Start: 04-16-2022 End: 04-16-2022 Patient encounter procedure [facility] [place] Start: 04-16-2022 End: 04-16-2022 ambulatory Joe Granda MD Work Phone: Endocrinology BMI Comment on above: Morbid obesity with body mass index of 60.0-69.9 in adult (HCC) (Primary Dx); Gastroesophageal reflux disease, unspecified whether esophagitis present Start: 04-16-2022 End: 04-16-2022 Telemedicine consultation with patient Joe Granda MD Work Phone: [facility] Start: 04-16-2022 End: 10-19-2022 ambulatory NON STAFF [facility] Work Phone: Start: 04-16-2022 Office outpatient vi sit 15 minutes Christa Tyler [facility] Start: 04-15-2022 ambulatory Pao Hodgson RN Work Phone: Endocrinology BMI Comment on above: Upper [facility] Start: 04-15-2022 E-mail encounter fro m caregiver Pao Hodgson RN Work Phone: [facility] Start: 04-11-2022 End: 04-12-[address] ESTELLA WHITEHEAD Facility:[facility] Start: 04-01-2022 End: 04-01-[address] KAT MUNGUIA . Facility:[facility] Start: 03-27-2022 End: 03-27-2022 ambulatory Rob Garcia Other [employer] Other Start: 03-27-2022 Telephone encounter Rob FOWLER [facility] Start: 03-10-2022 End: 03-10-2022 ambulatory Joe Granda MD Work Phone: Endocrinology BMI Comment on above: History of sleeve ga strectomy (Primary Dx) Start: 03-10-2022 End: 03-10-2022 Telemedicine consultation with patient Joe Granda MD Work Phone: [facility] Start: 02-17-2022 End: 02-17-2022 ambulatory Joe Granda MD Work Phone: Endocrinology BMI Comment on above: NO SHOW (Primary Dx) Start: 02-17-2022 End: 02-17-2022 Telemedicine consultation with patient Joe Granda MD Work Phone: [facility] Start: 02-12-2022 End: 02-12-2022 Subsequent hospital visit by physician Shireen Pagan [facility] Work Phone: [facility] Scan Comment on above: 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 Facility: Start: 01-20-2022 End: 01-20-2022 ambulatory Joe Granda MD Work Phone: Endocrinology BMI Comment on above: Epigastric pain (Nataliia july Dx); Gastroesophageal reflux disease without esophagitis; History of sleeve gastrectomy Start: 01-20-2022 End: 01-20-2022 Telemedicine consultation with patient Joe Granda MD Work Phone: [facility] Start: 01-17-2022 End: 01-17-[address] Work Phone: General Surgery Comment on above: Reassessment; Patien t Education Start: 12-18-2021 End: 12-18-2021 Subsequent hospital visit by physician Joe Granda MD Work Phone: Procedures Comment on above: TONEY on CPAP [G47.33, Z99.89] Start: 12-05-2021 End: 12-05-[address] Work Phone: General Surgery Comment on above: NO SHOW (Primary Dx) Start: 12-05-2021 End: 12-05-2021 Telemedicine consultation with patient Akosua Peraza RD Work Phone: [facility] Start: 11-13-2021 End: 11-13-2021 ambulatory Christa Tyler Other [employer] Other Start: 11-13-2021 Office outpatient vi sit 15 minutes Christa Tyler [facility] [place] Start: 11-04-2021 End: 11-04-[address] Work Phone: Endocrinology BMI Comment on above: Reassessment; Patien t Education Start: 11-04-2021 End: 11-04-2021 Patient encounter procedure Joe Granda MD Work Phone: Endocrinology BMI Comment on above: History of sleeve ga strectomy (Primary Dx); Gastric fistula Start: 10-28-2021 End: 10-28-2021 ambulatory Estella Nguyen Other [employer] Other Start: 10-28-2021 Telephone encounter Estella Nguyen [facility] Start: 10-23-2021 End: 10-23-2021 ambulatory Celsa Argueta Other [employer] Other Start: 10-23-2021 Telephone encounter C[facility]a [facility] Start: 10-11-2021 End: 10-11-2021 ambulatory Bambi Gonzalez Other [employer] Other Start: 10-11-2021 Patient encounter procedure Bambi Gonzalez [facility] Start: 10-03-2021 End: 10-03-2021 ambulatory Mary Blakely Other [employer] Other Start: 10-03-2021 Office outpatient vi sit 25 minutes Mary Reddy [facility] Start: 09-30-2021 Office consultation new/estab patient 40 min Prince Horvath Work Phone: [id number] Work Phone: Start: 09-25-2021 Orders Only Joe izquierdo MD Work Phone: General Surgery Comment on above: Dysphagia, unspecifi ed type (Primary Dx); Gastroesophageal reflux disease, unspecified whether esophagitis present; History of sleeve gastrectomy Start: 09-24-2021 E-mail encounter fro m caregiver Jayshree Huffman APRN.AQUARIUM SPECIALIST Work Phone: [facility] Start: 09-24-2021 Follow-up encounter Jayshree tilley APRN.CNP Work Phone: General Surgery Comment on above: Appointment follow u p Start: 09-23-2021 End: 09-23-2021 ambulatory Jayshree Huffman APRN.CNP Work Phone: General Surgery Comment on above: Gastroesophageal ref lux disease, unspecified whether esophagitis present (Primary Dx); Class 3 severe obesity with serious comorbidity and body mass index (BMI) of 60.0 to 69.9 in adult, unspecified obesity type (HCC); TONEY on CPAP; S/P laparoscopic sleeve gastrectomy; Postoperative malabsorption Start: 09-23-2021 End: 09-23-2021 Telemedicine consultation with patient Jayshree Huffman APRN.AQUARIUM SPECIALIST Work Phone: [facility] Start: 05-17-2021 End: 05-17-2021 Office outpatient new 45 minutes Humza Walter MD Work Phone: [facility] Comment on above: S/P laparoscopic sle nikki gastrectomy (Primary Dx); TONEY on CPAP; Morbid obesity with body mass index of 50 or higher; Gastroesophageal reflux disease, unspecified whether esophagitis present; Screening for viral disease; Other intestinal malabsorption Start: 04-06-2020 End: 04-06-2020 Patient encounter procedure KYLAH VARGAS [facility] Start: 04-06-2020 End: 04-06-2020 Subsequent hospital visit by physician Kyalh Vargas Work Phone: [facility] Comment on above: S/P laparoscopic sle nikki gastrectomy (Primary Dx) Start: 04-02-2020 End: 04-07-2020 [facility] Start: 04-02-2020 Patient encounter procedure [facility] Start: 04-02-2020 End: 04-06-2020 Subsequent hospital visit by physician Franklin Pérezid19 Pat Screening Schedule [facility] Comment on above: Preop testing Start: 01-06-2017 End: 01-07-2017 Ambulatory ROSAURA OJEDAKATHY [facility] Procedures Date Procedure Procedure Detail Performing Clinician Start: 04-27-2024 Arthrocentesis aspir&/inj major jt/bursa w/o us Bushra Nevarez FINANCIAL INSTITUTION BRANCH MANAGER Work Phone: Start: 04-13-2024 Arthrocentesis aspir&/inj major jt/bursa w/o us Bushra Nevarez FINANCIAL INSTITUTION BRANCH MANAGER Work Phone: Start: 08-31-2023 Adult depression screening assessment Karon Monsivais RD Work Phone: Start: 08-04-2023 History of gastrointestinal tract bypass S/P biliopancreatic diversion with duodenal switch Mary Colbert RD Work Phone: Start: 07-22-2023 Antibody screen ELIZABET SIMENTAL Comment on above: Order Comment: Specimen Type: BLOOD SPEC IMEN Ordering Facility: [facility] Address: [address] [place] [address] Performed By: #### [id number] #### [facility] CLIA [id number] [address] [place] [id number] Start: 04-16-2022 X-ray of right foot Start: 02-12-2022 Ct abdomen & pelvis w/contrast material Joe Granda MD Work Phone: Start: 12-18-2021 Esophagogastroduodenoscopy transoral diagnostic Jayshree Huffman TELEPHONE ENGINEER.AQUARIUM SPECIALIST Work Phone: Start: 08-19-2021 Adult depression screening assessment Jayshree Huffman TELEPHONE ENGINEER.AQUARIUM SPECIALIST Work Phone: Start: 04-06-2020 Level iv surg pathology gross&microscopic exam KYLAH VARGAS Start: 04-06-2020 DISCHARGE PATIENT KYLAH ALICIA Start: 04-06-2020 ASSESS KYLAH VARGAS Start: 04-06-2020 [...] Work Phone: Start: 01-06-2017 DRUG SCREEN, PAIN ROSAURA AICHHOLZ Cholecystectomy Prince giles Work Phone: Decompression of median nerve Prince Horvath Work Phone: Comment on above: Bilateral; History of gastroint estinal tract bypass Status post biliopancreatic diversion with duodenal switch Jayshree Gita TELEPHONE ENGINEER.AQUARIUM SPECIALIST Work Phone: History of gastroint estinal tract bypass S/P biliopancreatic diversion with duodenal switch Karon Monsivais RD Work Phone: History of gastroint estinal tract bypass S/P biliopancreatic diversion with duodenal switch Jayshree Gita TELEPHONE ENGINEER.AQUARIUM SPECIALIST Work Phone: History of gastroint estinal tract bypass S/P biliopancreatic diversion with duodenal switch Jayshree Gita TELEPHONE ENGINEER.AQUARIUM SPECIALIST Work Phone: History of gastroint estinal tract bypass S/P biliopancreatic diversion with duodenal switch Amina Nieto MD Work Phone: History of gastroint estinal tract bypass S/P biliopancreatic diversion with duodenal switch Karon Monsivais RD Work Phone: Splenectomy Prince ramírez Work Phone: Plan of Treatment Date Care Activity Detail Author Start: 08-11-2029 DTaP/Tdap/Td vaccine (2 - Td) DTaP/Tdap/Td vaccine (2 - Td) [place] Start: 08-11-2029 Urine microalbumin profile DTaP,Tdap,Td Vaccine (2 - Td or Tdap) [facility] Start: 01-03-2025 Meningococcal (ACWY) vaccine (3 - Risk start after 7 months 2-dose series) Meningococcal (ACWY) vaccine (3 - Risk start after 7 months 2-dose series) [place], [place] Start: 08-30-2024 Anxiety Screening Anxiety Screening [facility] Start: 08-30-2024 Depression Screening Depression Screening [facility] Start: 05-05-2024 End: 05-05-2024 ambulatory 05/05/2024 1:00 PM EST Treatment [facility] [address] [place] [id number] Babar Lipscomb, HEAD SH[employer] [facility] Start: 05-05-2024 End: 05-05-2024 Patient encounter procedure Endocrinology BMI Comment on above: 6 mo post op Start: 05-03-2024 End: 05-03-2024 Patient encounter procedure 05/03/2024 2:40 PM EST Office Visit [facility] [address] [place] [phone] Jamie Harley DO [address] [place] [address] [facility] Start: 05-03-2024 End: 05-03-2024 ambulatory 05/03/2024 1:30 PM EST Treatment [facility] [address] [facility] [address] [place] [address] Sherry Cuellar, PT [facility] Start: 04-29-2024 End: 04-29-2024 Patient encounter procedure 04/29/2024 1:00 PM EDT Office Visit [facility] [address] [place] [address] [place] [address] lab [facility] Comment on above: lab Start: 04-28-2024 End: 04-28-2024 ambulatory 04/28/2024 1:00 PM EDT Treatment [facility] [address] [facility] [address] [place] [address] Prince Colindres, HEAD SH[employer] [facility] Start: 04-27-2024 End: 04-27-2025 MR Knee - right WO contrast MR knee right wo IV contrast Imaging Routine Internal derangement of right knee Contusion of right knee, initial encounter Expected: 04/27/2024 (Approximate), Expires: 04/27/2025 [facility] Work Phone: Comment on above: Expected: 04/27/2024 (Approximate), Expi res: 04/27/2025 Start: 04-27-2024 End: 04-27-2024 Patient encounter procedure [facility] Comment on above: Arthritis of right knee (Primary Dx) Start: 04-26-2024 End: 04-26-2024 Patient encounter procedure 04/26/2024 1:00 PM EDT Office Visit [facility] [place] [address] [place] [address] Darrel Mccauley MD [address] [place] [address] [facility] [address] [address] Start: 04-26-2024 End: 04-26-2024 ambulatory 04/26/2024 12:30 PM EDT Treatment [facility] [address] [place] [phone] Prince Colindres, LONNY [facility] Start: 04-21-2024 End: 04-21-2024 ambulatory [facility] Comment on above: Arrived Start: 04-19-2024 End: 07-19-2024 25-hydroxyvitamin D3 [Mass/volume] in Serum or Plasma VITAMIN D 25 HYDROXY Lab Routine BMI 60.0-69.9, adult (HCC) S/P bariatric surgery S/P biliopancreatic diversion with duodenal switch Prediabetes Expected: 04/19/2024, Expires: 07/19/2024 [facility] Comment on above: Expected: 04/19/2024, Expires: Start: 04-19-2024 End: 07-19-2024 CBC panel - Blood by Automated count COMPLETE BLOOD COUNT Lab Routine BMI 60.0-69.9, adult (HCC) S/P bariatric surgery S/P biliopancreatic diversion with duodenal switch Prediabetes Expected: 04/19/2024, Expires: 07/19/2024 [facility] Work Phone: Comment on above: Expected: 04/19/2024, Expires: Start: 04-19-2024 End: 07-19-2024 Cobalamin (Vitamin B12) [Mass/volume] in Serum or Plasma VITAMIN B12 Lab Routine BMI 60.0-69.9, adult (HCC) S/P bariatric surgery S/P biliopancreatic diversion with duodenal switch Prediabetes Expected: 04/19/2024, Expires: 07/19/2024 [facility] Comment on above: Expected: 04/19/2024, Expires: Start: 04-19-2024 End: 07-19-2024 Comprehensive metabolic 2000 panel - Serum or Plasma COMPREHENSIVE METABOLIC PANEL Lab Routine BMI 60.0-69.9, adult (HCC) S/P bariatric surgery S/P biliopancreatic diversion with duodenal switch Prediabetes Expected: 04/19/2024, Expires: 07/19/2024 [facility] Comment on above: Expected: 04/19/2024, Expires: Start: 04-19-2024 End: 07-19-2024 Folate [Mass/volume] in Serum or Plasma FOLATE, SERUM Lab Routine BMI 60.0-69.9, adult (HCC) S/P bariatric surgery S/P biliopancreatic diversion with duodenal switch Prediabetes Expected: 04/19/2024, Expires: 07/19/2024 [facility] Comment on above: Expected: 04/19/2024, Expires: Start: 04-19-2024 End: 07-19-2024 Hemoglobin A1c in Blood HEMOGLOBIN A1C Lab Routine BMI 60.0-69.9, adult (HCC) S/P bariatric surgery S/P biliopancreatic diversion with duodenal switch Prediabetes Expected: 04/19/2024, Expires: 07/19/2024 [facility] Comment on above: Expected: 04/19/2024, Expires: Start: 04-19-2024 End: 07-19-2024 Iron and Iron binding capacity panel - Serum or Plasma IRON AND TIBC Lab Routine BMI 60.0-69.9, adult (HCC) S/P bariatric surgery S/P biliopancreatic diversion with duodenal switch Prediabetes Expected: 04/19/2024, Expires: 07/19/2024 [facility] Comment on above: Expected: 04/19/2024, Expires: Start: 04-19-2024 End: 07-19-2024 Lipid 1996 panel - Serum or Plasma LIPID PANEL BASIC Lab Routine BMI 60.0-69.9, adult ([facility]) S/P bariatric surgery S/P biliopancreatic diversion with duodenal switch Prediabetes Expected: 04/19/2024, Expires: 07/19/2024 [facility] Comment on above: Expected: 04/19/2024, Expires: Start: 04-19-2024 End: 07-19-2024 Parathyrin.intact [Mass/volume] in Serum or Plasma PTH INTACT Lab Routine BMI 60.0-69.9, adult ([facility]) S/P bariatric surgery S/P biliopancreatic diversion with duodenal switch Prediabetes Expected: 04/19/2024, Expires: 07/19/2024 [facility] Comment on above: Expected: 04/19/2024, Expires: Start: 04-19-2024 End: 07-19-2024 Retinol [Mass/volume] in Serum or Plasma VITAMIN A/RETINOL Lab Routine BMI 60.0-69.9, adult ([facility]) S/P bariatric surgery S/P biliopancreatic diversion with duodenal switch Prediabetes Expected: 04/19/2024, Expires: 07/19/2024 [facility] Comment on above: Expected: 04/19/2024, Expires: Start: 04-19-2024 End: 07-19-2024 Thyrotropin [Units/volume] in Serum or Plasma THYROID STIMULATING HORMONE Lab Routine BMI 60.0-69.9, adult ([facility]) S/P bariatric surgery S/P biliopancreatic diversion with duodenal switch Prediabetes Expected: 04/19/2024, Expires: 07/19/2024 [facility] Comment on above: Expected: 04/19/2024, Expires: Start: 04-19-2024 End: 07-19-2024 VITAMIN B1 (THIAMINE), WHOLE BLOOD VITAMIN B1 (THIAMINE), WHOLE BLOOD Lab Routine BMI 60.0-69.9, adult (HCC) S/P bariatric surgery S/P biliopancreatic diversion with duodenal switch Prediabetes Expected: 04/19/2024, Expires: 07/19/2024 [facility] Comment on above: Expected: 04/19/2024, Expires: Start: 04-19-2024 End: 07-19-2024 Zinc [Mass/volume] in Serum or Plasma ZINC BLD Lab Routine BMI 60.0-69.9, adult (HCC) S/P bariatric surgery S/P biliopancreatic diversion with duodenal switch Prediabetes Expected: 04/19/2024, Expires: 07/19/2024 [facility] Comment on above: Expected: 04/19/2024, Expires: Start: 04-19-2024 End: 04-19-2024 ambulatory [facility] Comment on above: Arrived Start: 04-19-2024 End: 04-19-2024 Follow-up encounter 04/19/2024 11:30 AM EDT [facility] General Surgery [address] [id number] Amina Nieto MD [address] [place] [address] FOLLOW UP General Surgery Comment on above: FOLLOW UP Start: 04-14-2024 End: 04-14-2024 ambulatory 04/14/2024 12:30 PM EDT Treatment [facility] [address] [place] [phone] Prince Colindres, LONNY [facility] Start: 04-13-2024 End: 04-13-2024 Patient encounter procedure [facility] Comment on above: Right knee pain, unspecified chronicity (Primary Dx); Arthritis of right knee Start: 04-12-2024 End: 04-12-2024 Patient encounter procedure 04/12/2024 2:20 PM EDT Office Visit [facility] [address] [facility] [place] [place] [address] Jamie Harley, [address] [place] [address] [facility] Start: 04-12-2024 End: 04-12-2024 ambulatory 04/12/2024 10:30 AM EDT Treatment [facility] [address] [place] [phone] Prince Colindres, HEAD SHIPPER [facility] Start: 04-07-2024 End: 04-07-2024 ambulatory [facility] Comment on above: Arrived Start: 04-05-2024 End: 04-05-2024 ambulatory 04/05/2024 1:30 PM EDT Treatment [facility] [address] [facility] [address] [place] [phone] Sherry Cuellar, PT [facility] Start: 03-31-2024 End: 03-31-2024 ambulatory [facility] Comment on above: Low back pain, unspecified back pain lat erality, unspecified chronicity, unspecified whether sciatica present (Primary Dx) Start: 02-28-2024 Covid-19 Vaccine ( season) Covid-19 Vaccine ( season) [facility] Start: 02-28-2024 Covid-19 Vaccine ( season) Covid-19 Vaccine ( season) [facility] Start: 02-28-2024 Influenza vaccination [facility] Start: 02-10-2024 End: 02-10-2024 Follow-up encounter 02/10/2024 2:15 PM EDT [facility] Endocrinology BMI [address] [place] [address] Amina Nieto MD [address] [place] [address] follow up Endocrinology BMI Comment on above: follow up Start: 11-18-2023 End: 11-18-2023 ambulatory 11/18/2023 11:30 AM EDT Results Only [facility] [address] [place] [address] [place] [address] [facility] Start: 10-26-2023 End: 01-25-2024 25-hydroxyvitamin D3 [Mass/volume] in Serum or Plasma VITAMIN D 25 HYDROXY Lab Routine S/P biliopancreatic diversion with duodenal switch Impaired intestinal absorption Expected: 10/26/2023 (Approximate), Expires: 01/25/2024 [facility] Work Phone: Comment on above: Expected: 10/26/2023 (Approximate), Expi res: 01/25/2024 Start: 10-26-2023 End: 01-25-2024 Alpha tocopherol [Mass/volume] in Serum or Plasma VITAMIN E/TOCOPHEROL Lab Routine S/P biliopancreatic diversion with duodenal switch Impaired intestinal absorption Expected: 10/26/2023 (Approximate), Expires: 01/25/2024 [facility] Work Phone: Comment on above: Expected: 10/26/2023 (Approximate), Expi res: 01/25/2024 Start: 10-26-2023 End: 01-25-2024 CBC panel - Blood by Automated count CBC Lab Routine S/P biliopancreatic diversion with duodenal switch Open abdominal incision with drainage, subsequent encounter Impaired intestinal absorption Expected: 10/26/2023 (Approximate), Expires: 01/25/2024 [facility] Work Phone: Comment on above: Expected: 10/26/2023 (Approximate), Expi res: 01/25/2024 Start: 10-26-2023 End: 01-25-2024 Cobalamin (Vitamin B12) [Mass/volume] in Serum or Plasma VITAMIN B12 BLOOD Lab Routine S/P biliopancreatic diversion with duodenal switch Impaired intestinal absorption Expected: 10/26/2023 (Approximate), Expires: 01/25/2024 [facility] Work Phone: Comment on above: Expected: 10/26/2023 (Approximate), Expi res: 01/25/2024 Start: 10-26-2023 End: 01-25-2024 Comprehensive metabolic 2000 panel - Serum or Plasma COMP METABOLIC PANEL Lab Routine S/P biliopancreatic diversion with duodenal switch Impaired intestinal absorption Expected: 10/26/2023 (Approximate), Expires: 01/25/2024 [facility] Work Phone: Comment on above: Expected: 10/26/2023 (Approximate), Expi res: 01/25/2024 Start: 10-26-2023 End: 01-25-2024 Ferritin [Mass/volume] in Serum or Plasma FERRITIN BLD Lab Routine S/P biliopancreatic diversion with duodenal switch Impaired intestinal absorption Expected: 10/26/2023 (Approximate), Expires: 01/25/2024 [facility] Work Phone: Comment on above: Expected: 10/26/2023 (Approximate), Expi res: 01/25/2024 Start: 10-26-2023 End: 01-25-2024 Folate [Mass/volume] in Serum or Plasma FOLATE SERUM Lab Routine S/P biliopancreatic diversion with duodenal switch Impaired intestinal absorption Expected: 10/26/2023 (Approximate), Expires: 01/25/2024 [facility] Work Phone: Comment on above: Expected: 10/26/2023 (Approximate), Expi res: 01/25/2024 Start: 10-26-2023 End: 01-25-2024 Hemoglobin A1c in Blood HGB A1C Lab Routine S/P biliopancreatic diversion with duodenal switch Impaired intestinal absorption Expected: 10/26/2023 (Approximate), Expires: 01/25/2024 [facility] Work Phone: Comment on above: Expected: 10/26/2023 (Approximate), Expi res: 01/25/2024 Start: 10-26-2023 End: 01-25-2024 Iron and Iron binding capacity panel - Serum or Plasma IRON + TIBC Lab Routine S/P biliopancreatic diversion with duodenal switch Impaired intestinal absorption Expected: 10/26/2023 (Approximate), Expires: 01/25/2024 [facility] Work Phone: Comment on above: Expected: 10/26/2023 (Approximate), Expi res: 01/25/2024 Start: 10-26-2023 End: 01-25-2024 Parathyrin.intact [Mass/volume] in Serum or Plasma PTH INTACT BLD Lab Routine S/P biliopancreatic diversion with duodenal switch Impaired intestinal absorption Expected: 10/26/2023 (Approximate), Expires: 01/25/2024 [facility] Work Phone: Comment on above: Expected: 10/26/2023 (Approximate), Expi res: 01/25/2024 Start: 10-26-2023 End: 01-25-2024 Retinol [Mass/volume] in Serum or Plasma VITAMIN A/RETINOL Lab Routine S/P biliopancreatic diversion with duodenal switch Impaired intestinal absorption Expected: 10/26/2023 (Approximate), Expires: 01/25/2024 [facility] Work Phone: Comment on above: Expected: 10/26/2023 (Approximate), Expi res: 01/25/2024 Start: 10-26-2023 End: 01-25-2024 VITAMIN B1 (THIAMINE), WHOLE BLOOD VITAMIN B1 (THIAMINE), WHOLE BLOOD Lab Routine S/P biliopancreatic diversion with duodenal switch Impaired intestinal absorption Expected: 10/26/2023 (Approximate), Expires: 01/25/2024 [facility] Work Phone: Comment on above: Expected: 10/26/2023 (Approximate), Expi res: 01/25/2024 Start: 10-26-2023 End: 01-25-2024 VITAMIN K VITAMIN K Lab Routine S/P biliopancreatic diversion with duodenal switch Impaired intestinal absorption Expected: 10/26/2023 (Approximate), Expires: 01/25/2024 [facility] Work Phone: Comment on above: Expected: 10/26/2023 (Approximate), Expi res: 01/25/2024 Start: 10-26-2023 End: 01-25-2024 Zinc [Mass/volume] in Serum or Plasma ZINC BLD Lab Routine S/P biliopancreatic diversion with duodenal switch Impaired intestinal absorption Expected: 10/26/2023 (Approximate), Expires: 01/25/2024 [facility] Work Phone: Comment on above: Expected: 10/26/2023 (Approximate), Expi res: 01/25/2024 Start: 06-29-2023 Depression Assessment Depression Assessment [facility] Start: 02-27-2023 Covid-19 Vaccine () Covid-19 Vaccine () [facility] Start: 02-27-2023 Influenza vaccination [facility] Start: 08-19-2022 Adult depression screening assessment DEPRESSION SCREENING [facility] Start: 06-29-2022 DEPRESSION ASSESSMENT DEPRESSION ASSESSMENT [facility] Start: 05-13-2022 End: 08-23-2022 Coagulation factor VIII activity actual/normal in Platelet poor plasma by Coagulation assay FACTOR VIII:C ASSAY Lab Routine BMI 70 and over, adult (HCC) Gastroesophageal reflux disease, unspecified whether esophagitis present Expected: 05/13/2022 (Approximate), Expires: 08/23/2022 [facility] Work Phone: Comment on above: Expected: 05/13/2022 (Approximate), Expi res: 08/23/2022 Start: 05-13-2022 End: 08-23-2022 CONFIRM BLOOD TYPE CONFIRM BLOOD TYPE Blood Bank Routine BMI 70 and over, adult (HCC) Gastroesophageal reflux disease, unspecified whether esophagitis present Expected: 05/13/2022 (Approximate), Expires: 08/23/2022 [facility] Work Phone: Comment on above: Expected: 05/13/2022 (Approximate), Expi res: 08/23/2022 Start: 05-13-2022 End: 08-23-2022 TYPE AND SCREEN,30 DAY TYPE AND SCREEN,30 DAY Blood Bank Routine BMI 70 and over, adult (HCC) Gastroesophageal reflux disease, unspecified whether esophagitis present Expected: 05/13/2022 (Approximate), Expires: 08/23/2022 [facility] Work Phone: Comment on above: Expected: 05/13/2022 (Approximate), Expi res: 08/23/2022 Start: 03-10-2022 End: 05-10-2022 25-hydroxyvitamin D3 [Mass/volume] in Serum or Plasma VITAMIN D 25 HYDROXY Lab Routine History of sleeve gastrectomy Expected: 03/10/2022, Expires: 05/10/2022 [facility] Work Phone: Comment on above: Expected: 03/10/2022, Expires: 2 Start: 03-10-2022 End: 05-10-2022 CBC W Auto Differential panel - Blood CBC + DIFF Lab Routine History of sleeve gastrectomy Expected: 03/10/2022, Expires: 05/10/2022 [facility] Work Phone: Comment on above: Expected: 03/10/2022, Expires: 2 Start: 03-10-2022 End: 05-10-2022 Cobalamin (Vitamin B12) [Mass/volume] in Serum or Plasma VITAMIN B12 BLOOD Lab Routine History of sleeve gastrectomy Expected: 03/10/2022, Expires: 05/10/2022 [facility] Work Phone: Comment on above: Expected: 03/10/2022, Expires: 2 Start: 03-10-2022 End: 05-10-2022 Comprehensive metabolic 2000 panel - Serum or Plasma COMP METABOLIC PANEL Lab Routine History of sleeve gastrectomy Expected: 03/10/2022, Expires: 05/10/2022 [facility] Work Phone: Comment on above: Expected: 03/10/2022, Expires: 2 Start: 03-10-2022 End: 05-10-2022 Folate [Mass/volume] in Serum or Plasma FOLATE SERUM Lab Routine History of sleeve gastrectomy Expected: 03/10/2022, Expires: 05/10/2022 [facility] Work Phone: Comment on above: Expected: 03/10/2022, Expires: 2 Start: 03-10-2022 End: 05-10-2022 Iron and Iron binding capacity panel - Serum or Plasma IRON + TIBC Lab Routine History of sleeve gastrectomy Expected: 03/10/2022, Expires: 05/10/2022 [facility] Work Phone: Comment on above: Expected: 03/10/2022, Expires: 2 Start: 03-10-2022 End: 05-10-2022 Prealbumin [Mass/volume] in Serum or Plasma PREALBUMIN BLD Lab Routine History of sleeve gastrectomy Expected: 03/10/2022, Expires: 05/10/2022 [facility] Work Phone: Comment on above: Expected: 03/10/2022, Expires: 2 Start: 03-10-2022 End: 05-10-2022 VITAMIN B1 (THIAMINE), WHOLE BLOOD VITAMIN B1 (THIAMINE), WHOLE BLOOD Lab Routine History of sleeve gastrectomy Expected: 03/10/2022, Expires: 05/10/2022 [facility] Work Phone: Comment on above: Expected: 03/10/2022, Expires: 2 Start: 02-27-2022 Influenza vaccination INFLUENZA (#1) [facility] Start: 12-01-2021 COVID-19 VACCINE (3 - Booster for Pfizer series) COVID-19 VACCINE (3 - Booster for Pfizer series) [facility] Start: 11-04-2021 End: 01-04-2022 CBC W Auto Differential panel - Blood CBC + DIFF Lab Routine History of sleeve gastrectomy Expected: 11/04/2021, Expires: 01/04/2022 [facility] Work Phone: Comment on above: Expected: 11/04/2021, Expires: 2 Start: 11-04-2021 End: 01-04-2022 Comprehensive metabolic 2000 panel - Serum or Plasma COMP METABOLIC PANEL Lab Routine History of sleeve gastrectomy Expected: 11/04/2021, Expires: 01/04/2022 [facility] Work Phone: Comment on above: Expected: 11/04/2021, Expires: 2 Start: 11-04-2021 End: 01-04-2022 Folate [Mass/volume] in Serum or Plasma FOLATE SERUM Lab Routine History of sleeve gastrectomy Expected: 11/04/2021, Expires: 01/04/2022 [facility] Work Phone: Comment on above: Expected: 11/04/2021, Expires: 2 Start: 11-04-2021 End: 01-04-2022 IRON + TIBC IRON + TIBC Lab Routine History of sleeve gastrectomy Expected: 11/04/2021, Expires: 01/04/2022 [facility] Work Phone: Comment on above: Expected: 11/04/2021, Expires: 2 Start: 11-04-2021 End: 01-04-2022 LIPID PANEL BASIC LIPID PANEL BASIC Lab Routine History of sleeve gastrectomy Expected: 11/04/2021, Expires: 01/04/2022 [facility] Work Phone: Comment on above: Expected: 11/04/2021, Expires: 2 Start: 11-04-2021 End: 01-04-2022 Prealbumin [Mass/volume] in Serum or Plasma PREALBUMIN BLD Lab Routine History of sleeve gastrectomy Expected: 11/04/2021, Expires: 01/04/2022 [facility] Work Phone: Comment on above: Expected: 11/04/2021, Expires: 2 Start: 11-04-2021 End: 01-04-2022 VITAMIN B1 (THIAMINE), WHOLE BLOOD VITAMIN B1 (THIAMINE), WHOLE BLOOD Lab Routine History of sleeve gastrectomy Expected: 11/04/2021, Expires: 01/04/2022 [facility] Work Phone: Comment on above: Expected: 11/04/2021, Expires: 2 Start: 11-04-2021 End: 01-04-2022 VITAMIN B12 BLOOD VITAMIN B12 BLOOD Lab Routine History of sleeve gastrectomy Expected: 11/04/2021, Expires: 01/04/2022 [facility] Work Phone: Comment on above: Expected: 11/04/2021, Expires: 2 Start: 11-04-2021 End: 01-04-2022 VITAMIN D 25 HYDROXY VITAMIN D 25 HYDROXY Lab Routine History of sleeve gastrectomy Expected: 11/04/2021, Expires: 01/04/2022 [facility] Work Phone: Comment on above: Expected: 11/04/2021, Expires: 2 Start: 09-23-2021 End: 11-23-2021 CBC panel - Blood by Automated count CBC Lab Routine Gastroesophageal reflux disease, unspecified whether esophagitis present Class 3 severe obesity with serious comorbidity and body mass index (BMI) of 60.0 to 69.9 in adult, unspecified obesity type (HCC) Postoperative malabsorption Expected: 09/23/2021, Expires: 11/23/2021 [facility] Work Phone: Comment on above: Expected: 09/23/2021, Expires: 2 Start: 09-23-2021 End: 11-23-2021 Choriogonadotropin ( test) [Presence] in Urine HCG QUAL UR Lab Routine Gastroesophageal reflux disease, unspecified whether esophagitis present Class 3 severe obesity with serious comorbidity and body mass index (BMI) of 60.0 to 69.9 in adult, unspecified obesity type (HCC) Postoperative malabsorption Expected: 09/23/2021, Expires: 11/23/2021 [facility] Work Phone: Comment on above: Expected: 09/23/2021, Expires: 2 Start: 09-23-2021 End: 11-23-2021 Comprehensive metabolic 2000 panel - Serum or Plasma COMP METABOLIC PANEL Lab Routine Gastroesophageal reflux disease, unspecified whether esophagitis present Class 3 severe obesity with serious comorbidity and body mass index (BMI) of 60.0 to 69.9 in adult, unspecified obesity type (HCC) Postoperative malabsorption Expected: 09/23/2021, Expires: 11/23/2021 [facility] Work Phone: Comment on above: Expected: 09/23/2021, Expires: 2 Start: 09-23-2021 End: 11-23-2021 FERRITIN BLD FERRITIN BLD Lab Routine Gastroesophageal reflux disease, unspecified whether esophagitis present Class 3 severe obesity with serious comorbidity and body mass index (BMI) of 60.0 to 69.9 in adult, unspecified obesity type (HCC) Postoperative malabsorption Expected: 09/23/2021, Expires: 11/23/2021 [facility] Work Phone: Comment on above: Expected: 09/23/2021, Expires: 2 Start: 09-23-2021 End: 11-23-2021 Folate [Mass/volume] in Serum or Plasma FOLATE SERUM Lab Routine Gastroesophageal reflux disease, unspecified whether esophagitis present Class 3 severe obesity with serious comorbidity and body mass index (BMI) of 60.0 to 69.9 in adult, unspecified obesity type (HCC) Postoperative malabsorption Expected: 09/23/2021, Expires: 11/23/2021 [facility] Work Phone: Comment on above: Expected: 09/23/2021, Expires: 2 Start: 09-23-2021 End: 11-23-2021 Hemoglobin A1c/Hemoglobin.total in Blood HGB A1C Lab Routine Gastroesophageal reflux disease, unspecified whether esophagitis present Class 3 severe obesity with serious comorbidity and body mass index (BMI) of 60.0 to 69.9 in adult, unspecified obesity type (HCC) Postoperative malabsorption Expected: 09/23/2021, Expires: 11/23/2021 [facility] Work Phone: Comment on above: Expected: 09/23/2021, Expires: 2 Start: 09-23-2021 End: 11-23-2021 IRON + TIBC IRON + TIBC Lab Routine Gastroesophageal reflux disease, unspecified whether esophagitis present Class 3 severe obesity with serious comorbidity and body mass index (BMI) of 60.0 to 69.9 in adult, unspecified obesity type (HCC) Postoperative malabsorption Expected: 09/23/2021, Expires: 11/23/2021 [facility] Work Phone: Comment on above: Expected: 09/23/2021, Expires: 2 Start: 09-23-2021 End: 11-23-2021 LIPID PANEL BASIC LIPID PANEL BASIC Lab Routine Gastroesophageal reflux disease, unspecified whether esophagitis present Class 3 severe obesity with serious comorbidity and body mass index (BMI) of 60.0 to 69.9 in adult, unspecified obesity type (HCC) Postoperative malabsorption Expected: 09/23/2021, Expires: 11/23/2021 [facility] Work Phone: Comment on above: Expected: 09/23/2021, Expires: 2 Start: 09-23-2021 End: 11-23-2021 NICOTINE & METAB, UR NICOTINE & METAB, UR Lab Routine Gastroesophageal reflux disease, unspecified whether esophagitis present Class 3 severe obesity with serious comorbidity and body mass index (BMI) of 60.0 to 69.9 in adult, unspecified obesity type (HCC) Postoperative malabsorption Expected: 09/23/2021, Expires: 11/23/2021 [facility] Work Phone: Comment on above: Expected: 09/23/2021, Expires: 2 Start: 09-23-2021 End: 11-23-2021 PTH INTACT BLD PTH INTACT BLD Lab Routine Gastroesophageal reflux disease, unspecified whether esophagitis present Class 3 severe obesity with serious comorbidity and body mass index (BMI) of 60.0 to 69.9 in adult, unspecified obesity type (HCC) Postoperative malabsorption Expected: 09/23/2021, Expires: 11/23/2021 [facility] Work Phone: Comment on above: Expected: 09/23/2021, Expires: 2 Start: 09-23-2021 End: 11-23-2021 Thyrotropin [Units/volume] in Serum or Plasma TSH BLD Lab Routine Gastroesophageal reflux disease, unspecified whether esophagitis present Class 3 severe obesity with serious comorbidity and body mass index (BMI) of 60.0 to 69.9 in adult, unspecified obesity type (HCC) Postoperative malabsorption Expected: 09/23/2021, Expires: 11/23/2021 [facility] Work Phone: Comment on above: Expected: 09/23/2021, Expires: 2 Start: 09-23-2021 End: 11-23-2021 TOX SCREEN ROUT UR TOX SCREEN ROUT UR Lab Routine Gastroesophageal reflux disease, unspecified whether esophagitis present Class 3 severe obesity with serious comorbidity and body mass index (BMI) of 60.0 to 69.9 in adult, unspecified obesity type (HCC) Postoperative malabsorption Expected: 09/23/2021, Expires: 11/23/2021 [facility] Work Phone: Comment on above: Expected: 09/23/2021, Expires: 2 Start: 09-23-2021 End: 11-23-2021 VITAMIN B1 (THIAMINE), WHOLE BLOOD VITAMIN B1 (THIAMINE), WHOLE BLOOD Lab Routine Gastroesophageal reflux disease, unspecified whether esophagitis present Class 3 severe obesity with serious comorbidity and body mass index (BMI) of 60.0 to 69.9 in adult, unspecified obesity type (HCC) Postoperative malabsorption Expected: 09/23/2021, Expires: 11/23/2021 [facility] Work Phone: Comment on above: Expected: 09/23/2021, Expires: 2 Start: 09-23-2021 End: 11-23-2021 VITAMIN B12 BLOOD VITAMIN B12 BLOOD Lab Routine Gastroesophageal reflux disease, unspecified whether esophagitis present Class 3 severe obesity with serious comorbidity and body mass index (BMI) of 60.0 to 69.9 in adult, unspecified obesity type (HCC) Postoperative malabsorption Expected: 09/23/2021, Expires: 11/23/2021 [facility] Work Phone: Comment on above: Expected: 09/23/2021, Expires: 2 Start: 09-23-2021 End: 11-23-2021 VITAMIN D 25 HYDROXY VITAMIN D 25 HYDROXY Lab Routine Gastroesophageal reflux disease, unspecified whether esophagitis present Class 3 severe obesity with serious comorbidity and body mass index (BMI) of 60.0 to 69.9 in adult, unspecified obesity type (HCC) Postoperative malabsorption Expected: 09/23/2021, Expires: 11/23/2021 [facility] Work Phone: Comment on above: Expected: 09/23/2021, Expires: 2 Start: 08-28-2021 COVID-19 VACCINE (3 - Booster for Pfizer series) COVID-19 VACCINE (3 - Booster for Pfizer series) [facility] Start: 08-28-2021 COVID-19 VACCINE (3 - Pfizer series) COVID-19 VACCINE (3 - Pfizer series) [facility] Start: 06-29-2021 DEPRESSION ASSESSMENT DEPRESSION ASSESSMENT [facility] Start: 05-30-2021 End: 05-30-2021 Nutrition therapy 05/30/2021 Clinical Support Encounter Nutrition and Dietetics Angelo Cedillo, RD [address] [place] [address] [facility] Start: 05-17-2021 End: 05-17-2022 B12/folate level B12 & FOLATE Lab Routine S/P laparoscopic sleeve gastrectomy TONEY on CPAP Morbid obesity with body mass index of 50 or higher Gastroesophageal reflux disease, unspecified whether esophagitis present Other intestinal malabsorption Expected: 05/17/2021, Expires: 05/17/2022 [facility] Comment on above: Expected: 05/17/2021, Expires: 2 Start: 05-17-2021 End: 05-17-2022 Complete blood count with white cell differential, automated CBC, EDIF, PLATELET Lab Routine S/P laparoscopic sleeve gastrectomy TONEY on CPAP Morbid obesity with body mass index of 50 or higher Gastroesophageal reflux disease, unspecified whether esophagitis present Other intestinal malabsorption Expected: 05/17/2021, Expires: 05/17/2022 [facility] Comment on above: Expected: 05/17/2021, Expires: 2 Start: 05-17-2021 End: 05-17-2022 Comprehensive metabolic 2000 panel - Serum or Plasma COMPREHENSIVE METABOLIC PANEL Lab Routine S/P laparoscopic sleeve gastrectomy TONEY on CPAP Morbid obesity with body mass index of 50 or higher Gastroesophageal reflux disease, unspecified whether esophagitis present Other intestinal malabsorption Expected: 05/17/2021, Expires: 05/17/2022 [facility] Comment on above: Expected: 05/17/2021, Expires: 2 Start: 05-17-2021 End: 05-17-2022 Diagnostic radiography of chest, combined PA and lateral XR CHEST PA AND LATERAL Imaging Routine S/P laparoscopic sleeve gastrectomy TONEY on CPAP Morbid obesity with body mass index of 50 or higher Gastroesophageal reflux disease, unspecified whether esophagitis present Other intestinal malabsorption Expected: 05/17/2021, Expires: 05/17/2022 [facility] Comment on above: Expected: 05/17/2021, Expires: 2 Start: 05-17-2021 End: 05-17-2022 Fluoroscopy of upper gastrointestinal tract XR FLUORO UPPER GI, WATER SOLUBLE AND/OR BARIUM CONTRAST Imaging Routine S/P laparoscopic sleeve gastrectomy Gastroesophageal reflux disease, unspecified whether esophagitis present Expected: 05/17/2021, Expires: 05/17/2022 [facility] Comment on above: Expected: 05/17/2021, Expires: 2 Start: 05-17-2021 End: 05-17-2022 Hemoglobin A1c/Hemoglobin.total in Blood HEMOGLOBIN A1C Lab Routine S/P laparoscopic sleeve gastrectomy TONEY on CPAP Morbid obesity with body mass index of 50 or higher Gastroesophageal reflux disease, unspecified whether esophagitis present Other intestinal malabsorption Expected: 05/17/2021, Expires: 05/17/2022 [facility] Comment on above: Expected: 05/17/2021, Expires: 2 Start: 05-17-2021 End: 05-17-2022 IRON/IRON BINDING/TRANSFERRIN IRON/IRON BINDING/TRANSFERRIN Lab Routine S/P laparoscopic sleeve gastrectomy TONEY on CPAP Morbid obesity with body mass index of 50 or higher Gastroesophageal reflux disease, unspecified whether esophagitis present Other intestinal malabsorption Expected: 05/17/2021, Expires: 05/17/2022 [facility] Comment on above: Expected: 05/17/2021, Expires: 2 Start: 05-17-2021 End: 05-17-2022 LIPID PANEL W CALCULATED LDL LIPID PANEL W CALCULATED LDL Lab Routine S/P laparoscopic sleeve gastrectomy TONEY on CPAP Morbid obesity with body mass index of 50 or higher Gastroesophageal reflux disease, unspecified whether esophagitis present Other intestinal malabsorption Expected: 05/17/2021, Expires: 05/17/2022 [facility] Comment on above: Expected: 05/17/2021, Expires: 2 Start: 05-17-2021 End: 05-17-2022 NOVEL CORONAVIRUS LAB 1 - NASOPHARYNGEAL NOVEL CORONAVIRUS LAB 1 - NASOPHARYNGEAL Microbiology STAT Screening for viral disease Expected: 05/17/2021, Expires: 05/17/2022 [facility] Comment on above: Expected: 05/17/2021, Expires: 2 Start: 05-17-2021 End: 05-17-2022 Standard ECG ECG ECG Routine S/P laparoscopic sleeve gastrectomy TONEY on CPAP Morbid obesity with body mass index of 50 or higher Gastroesophageal reflux disease, unspecified whether esophagitis present Other intestinal malabsorption Expected: 05/17/2021, Expires: 05/17/2022 [facility] Comment on above: Expected: 05/17/2021, Expires: 2 Start: 05-17-2021 End: 05-17-2022 Thyrotropin [Units/volume] in Serum or Plasma TSH Lab Routine S/P laparoscopic sleeve gastrectomy TONEY on CPAP Morbid obesity with body mass index of 50 or higher Gastroesophageal reflux disease, unspecified whether esophagitis present Other intestinal malabsorption Expected: 05/17/2021, Expires: 05/17/2022 [facility] Comment on above: Expected: 05/17/2021, Expires: 2 Start: 05-17-2021 End: 05-17-2022 VITAMIN B1 VITAMIN B1 Lab Routine S/P laparoscopic sleeve gastrectomy TONEY on CPAP Morbid obesity with body mass index of 50 or higher Gastroesophageal reflux disease, unspecified whether esophagitis present Other intestinal malabsorption Expected: 05/17/2021, Expires: 05/17/2022 [facility] Comment on above: Expected: 05/17/2021, Expires: 2 Start: 05-17-2021 End: 05-17-2022 VITAMIN D (25-HYDROXY,TOTAL) VITAMIN D (25-HYDROXY,TOTAL) Lab Routine S/P laparoscopic sleeve gastrectomy TONEY on CPAP Morbid obesity with body mass index of 50 or higher Gastroesophageal reflux disease, unspecified whether esophagitis present Other intestinal malabsorption Expected: 05/17/2021, Expires: 05/17/2022 [facility] Comment on above: Expected: 05/17/2021, Expires: 2 Start: 05-17-2021 End: 05-17-2022 ZINC, SERUM ZINC, SERUM Lab Routine S/P laparoscopic sleeve gastrectomy TONEY on CPAP Morbid obesity with body mass index of 50 or higher Gastroesophageal reflux disease, unspecified whether esophagitis present Other intestinal malabsorption Expected: 05/17/2021, Expires: 05/17/2022 [facility] Comment on above: Expected: 05/17/2021, Expires: 2 Start: 02-27-2021 Influenza vaccination INFLUENZA VACCINE (#1) [facility] Start: 04-06-2020 End: 04-06-2021 FL UGI FL UGI Imaging Routine S/P laparoscopic sleeve gastrectomy Expected: 04/06/2020, Expires: 04/06/2021 [place] Comment on above: Expected: 04/06/2020, Expires: 1 Start: 02-28-2020 Influenza vaccination Flu vaccine (#1) [place] Start: 02-27-2020 Pneumococcal 0-64 years Vaccine (2 of 3 - PPSV23) Pneumococcal 0-64 years Vaccine (2 of 3 - PPSV23) [place] Start: 08-31-2019 Hepatitis B Vaccine (3 of 3 - 19+ 3-dose series) Hepatitis B Vaccine (3 of 3 - 19+ 3-dose series) [facility] Start: 2015 HPV TESTING HPV TESTING [facility] Start: 2015 Screening for malignant neoplasm of cervix [facility] Start: 10-16-2011 PAP TESTING PAP TESTING [facility] Start: 10-16-2011 Screening for malignant neoplasm of cervix Pap Testing [facility] Start: 10-15-2009 Screening for malignant neoplasm of cervix Cervical Cancer Screening [facility] Start: 2006 Screening for malignant neoplasm of cervix [facility] Start: 2004 Third diphtheria, tetanus and acellular pertussis (DTaP) vaccination TDAP (ADULT) [facility] Start: 2004 Urine microalbumin profile DTAP,TDAP,TD (1 - Tdap) [facility] Start: 2003 Anxiety Screening Anxiety Screening [facility] Start: 2003 Depression Screening Depression Screening [facility] Start: 2003 HEPATITIS C SCREENING HEPATITIS C SCREENING [facility] Start: 2003 Hepatitis C screening Hepatitis C Screening [facility] Start: 2003 HIV SCREENING HIV SCREENING [facility] Start: 2003 HIV screening HIV Screening [facility] Start: 2003 Tetanus vaccination TETANUS [facility] Start: 2000 HIV screening [facility] Start: 1995 Meningococcal B vaccine (1 of 4 - Increased Risk Bexsero 2-dose series) Meningococcal B vaccine (1 of 4 - Increased Risk Bexsero 2-dose series) [place] Start: 1990 COVID-19 VACCINE (1) COVID-19 VACCINE (1) [facility] Start: 1986 Varicella vaccine (1 of 2 - 2-dose childhood series) Varicella vaccine (1 of 2 - 2-dose childhood series) [place] Start: 1985 HEPATITIS B (1 of 3 - 3-dose series) HEPATITIS B (1 of 3 - 3-dose series) [facility] Start: 1985 Hepatitis C antibody, confirmatory test HEPATITIS C VIRUS SCREENING [facility] End: 04-02-2020 COVID-19 Ambulatory COVID-19 Ambulatory Lab Routine Preop testing 1 Occurrences starting 04/02/2020 until 04/02/2020 [place] Comment on above: 1 Occurrences starting 04/02/2020 until 04/02/2020 End: 12-04-2022 Ct abdomen & pelvis w/contrast material CT ABD/PEL W IVCON Radiology Routine History of sleeve gastrectomy Gastric fistula 1 Occurrences starting 11/04/2021 until 12/04/2022 [facility] Work Phone: Comment on above: 1 Occurrences starting 11/04/2021 until 12/04/2022 End: 09-23-2022 ECG COMPLETE ECG COMPLETE ECG Routine TONEY on CPAP Gastroesophageal reflux disease, unspecified whether esophagitis present Class 3 severe obesity with serious comorbidity and body mass index (BMI) of 60.0 to 69.9 in adult, unspecified obesity type (HCC) Postoperative malabsorption 1 Occurrences starting 09/23/2021 until 09/23/2022 [facility] Work Phone: Comment on above: 1 Occurrences starting 09/23/2021 until 09/23/2022 End: 05-31-2023 ECG COMPLETE ECG COMPLETE ECG Routine Abnormal weight gain Preop testing Snoring Sleep-disordered breathing Fatigue, unspecified type S/P bariatric surgery BMI 70 and over, adult ([facility]) 1 Occurrences starting 06/04/2022 until 05/31/2023 [facility] Work Phone: Comment on above: 1 Occurrences starting 06/04/2022 until 05/31/2023 End: 03-10-2024 ECG COMPLETE ECG COMPLETE ECG Routine Pre-op evaluation Morbid obesity with body mass index of 60.0-69.9 in adult ([facility]) Gastroesophageal reflux disease, unspecified whether esophagitis present TONEY on CPAP Bipolar affective disorder, remission status unspecified ([facility]) Thrombocytosis Migraine without status migrainosus, not intractable, unspecified migraine type 1 Occurrences starting 03/10/2023 until 03/10/2024 [facility] Work Phone: Comment on above: 1 Occurrences starting 03/10/2023 until 03/10/2024 Oxygen therapy [[facility] Data Set] Initiate Oxygen Therapy Protocol Respiratory Care Routine Daily until discontinued starting 04/06/2020 [facility] Comment on above: Daily until discontinued starting 2019 Phase I & II - meter ed glucose Phase I & II - metered glucose Point of Care Testing Routine As Needed until discontinued starting 04/06/2020 [facility] Comment on above: As Needed until discontinued starting End: 05-31-2023 Polysomnogram POLYSOMNOGRAM (PSG) Procedures Routine Abnormal weight gain Preop testing Snoring Sleep-disordered breathing Fatigue, unspecified type S/P bariatric surgery BMI 70 and over, adult ([facility]) 1 Occurrences starting 06/04/2022 until 05/31/2023 [facility] Work Phone: Comment on above: 1 Occurrences starting 06/04/2022 until 05/31/2023 End: 10-23-2022 Radiologic exam chest 2 views XR CHEST 2V FRONTAL/LAT Radiology Routine TONEY on CPAP Gastroesophageal reflux disease, unspecified whether esophagitis present Class 3 severe obesity with serious comorbidity and body mass index (BMI) of 60.0 to 69.9 in adult, unspecified obesity type ([facility]) Postoperative malabsorption 1 Occurrences starting 09/23/2021 until 10/23/2022 [facility] Work Phone: Comment on above: 1 Occurrences starting 09/23/2021 until 10/23/2022 End: 05-18-2023 Radiologic exam chest 2 views XR CHEST 2V FRONTAL/LAT Radiology Routine BMI 70 and over, adult (HCC) Gastroesophageal reflux disease, unspecified whether esophagitis present 1 Occurrences starting 04/18/2022 until 05/18/2023 [facility] Work Phone: Comment on above: 1 Occurrences starting 04/18/2022 until 05/18/2023 End: 07-01-2023 Radiologic exam chest 2 views XR CHEST 2V FRONTAL/LAT Radiology Routine Abnormal weight gain Preop testing Snoring Sleep-disordered breathing Fatigue, unspecified type S/P bariatric surgery BMI 70 and over, adult (HCC) 1 Occurrences starting 06/04/2022 until 07/01/2023 [facility] Work Phone: Comment on above: 1 Occurrences starting 06/04/2022 until 07/01/2023 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 Procedures Routine BMI 70 and over, adult (HCC) Gastroesophageal reflux disease, unspecified whether esophagitis present Ordered: 04/18/2022 [facility] Work Phone: Comment on above: Ordered: 04/18/2022 Surgical Pathology Surgical Path ology Lab Routine Release Upon Ordering for 1 Occurrences starting 04/06/2020 [place] Comment on above: Release Upon Ordering [...] (HCC) 1 Occurrences starting 09/23/2021 until 10/23/2022 [facility] Work Phone: Comment on above: 1 Occurrences starting 09/23/2021 until 10/23/2022 End: 12-04-2022 XR UPPER GI SINGLE CONTRAST XR UPPER GI SINGLE CONTRAST Radiology Routine History of sleeve gastrectomy Gastric fistula 1 Occurrences starting 11/04/2021 until 12/04/2022 [facility] Work Phone: Comment on above: 1 Occurrences starting 11/04/2021 until 12/04/2022 [facility] Immunizations Immunization Date Immunization Notes Care Provider Octavio camacho 06-13-2021 Influenza, injectabl e, Madin [place] Canine Kidney, preservative free, quadrivalent Pac 2 Work Phone: [facility] 06-13-2021 influenza virus vacc ine, unspecified formulation Pacc 2 Work Phone: [facility] 01-04-2020 meningococcal oligosaccharide (groups A, C, Y and W-135) diphtheria toxoid conjugate vaccine (MCV4O) Pac 2 Work Phone: [facility] 01-04-2020 meningococcal vaccin e of unknown formulation and unknown serogroups [place], [place] 01-02-2020 pneumococcal conjuga te vaccine, 13 valent Pac 2 Work Phone: [facility] 01-02-2020 tuberculin skin test ; purified protein derivative solution, intradermal Amina Nieto MD Work Phone: [facility] 12-26-2019 tuberculin skin test ; purified protein derivative solution, intradermal Amina Nieto MD Work Phone: [facility] 08-11-2019 tetanus toxoid, redu herbie diphtheria toxoid, and acellular pertussis vaccine, adsorbed Pacc 2 Work Phone: [facility] 06-20-2019 influenza, injectabl e, quadrivalent, preservative free Pacc 2 Work Phone: [facility] 06-07-2019 influenza, injectabl e, quadrivalent, preservative free Pacc 2 Work Phone: [facility] 05-30-2019 influenza, high dose seasonal, preservative-free Pacc 2 Work Phone: [facility] 04-04-2019 hepatitis B vaccine, adult dosage Pacc 2 Work Phone: [facility] 03-02-2019 hepatitis B vaccine, adult dosage Pacc 2 Work Phone: [facility] 05-12-2017 influenza, injectabl e, quadrivalent, preservative free Pacc 2 Work Phone: [facility] 04-21-2016 influenza, seasonal, injectable, preservative free [facility] 04-27-2015 influenza, injectabl e, madin [place] canine kidney, preservative free Pacc 2 Work Phone: [facility] 12-18-2014 haemophilus influenz ae type b vaccine, PRP-T conjugate Pacc 2 Work Phone: [facility] 12-18-2014 meningococcal oligosaccharide (groups A, C, Y and W-135) diphtheria toxoid conjugate vaccine (MCV4O) Pacc 2 Work Phone: [facility] Payers Date Payer Category Payer Medicaid [id number] 2022 Self-pay [id number] 2020 Medicaid [id number] 2020 Unknown [id number] [id number] 2014 Unknown [id number] 1985 Unknown [id number] 2.16.840.1.384264.3.579.2.177 1985 Unknown [id number] 2.16.840.1.618748.3.579.2.173 1985 Unknown [id number] 2.16.840.1.213488.3.579.2.175 1985 Unknown [id number] 2.16.840.1.060036.3.579.2.593 1985 Unknown [id number] 2.16.840.1.994999.3.579.2.593 1985 Unknown [id number] 2.16.840.1.761669.3.579.2.593 1985 Unknown [id number] 2.16.840.1.127745.3.579.2.593 1985 Unknown [id number] 2.16.840.1.187283.3.579.2.593 1985 Unknown [id number] 2.16.840.1.282014.3.579.2.593 1985 Unknown [id number] 2.16.840.1.352108.3.579.2.593 1985 Unknown [id number] 2.16.840.1.793276.3.579.2.593 1985 Unknown [id number] 2.16.840.1.005991.3.579.2.1286 1985 Unknown [id number] 2.16.840.1.435417.3.579.2.1286 1985 Unknown [id number] 2.16.840.1.451315.3.579.2.1286 1985 Unknown [id number] 2.16.840.1.556869.3.579.2.1286 1985 Unknown [id number] 2.16.840.1.133159.3.579.2.1286 1985 Unknown [id number] 2.16.840.1.363844.3.579.2.1286 1985 Unknown [id number] 2.16.840.1.032669.3.579.2.1286 1985 Unknown [id number] 2.16.840.1.774995.3.579.2.1285 1985 Unknown [id number] 2.16.840.1.666664.3.579.2.1285 1985 Unknown [id number] 2.16.840.1.303410.3.579.2.1285 1985 Unknown [id number] 2.16.840.1.693163.3.579.2.1285 1985 Unknown [id number] 2.16.840.1.210532.3.579.2.1258 1985 Unknown [id number] 2.16.840.1.605374.3.579.2.1258 1985 Unknown [id number] 2.16.840.1.184285.3.579.2.1258 1985 Unknown [id number] 2.16.840.1.605156.3.579.2.1258 1985 Unknown [id number] 2.16.840.1.844658.3.579.2.1258 1985 Unknown [id number] 2.16.840.1.341341.3.579.2.1258 1985 Unknown [id number] 2.16.840.1.973020.3.579.2.1258 1985 Unknown [id number] 2.16.840.1.668123.3.579.2.1258 1985 Unknown [id number] 2.16.840.1.317500.3.579.2.1258 1985 Unknown [id number] 2.16.840.1.302450.3.579.2.1258 1985 Unknown [id number] 2.16.840.1.741619.3.579.2.1258 1985 Unknown [id number] 2.16.840.1.778309.3.579.2.1259 1985 Unknown [id number] 2.16.840.1.898795.3.579.2.9 1985 Unknown [id number] 2.16.840.1.977842.3.579.2.9 1985 Unknown [id number] 2.16.840.1.452850.3.579.2.9 1985 Unknown [id number] 2.16.840.1.620029.3.579.2.9 1985 Unknown [id number] 2.16.840.1.151583.3.579.2.1258 1985 Unknown [id number] 2.16.840.1.454329.3.579.2.9 1985 Unknown [id number] 2.16.840.1.866273.3.579.2.9 1985 Unknown [id number] 2.16.840.1.610111.3.579.2.9 1985 Unknown [id number] 2.16.840.1.370742.3.579.2.8 1985 Unknown [id number] 2.16.840.1.850358.3.579.2.718 1959 Unknown [id number] 2.16.840.1.218724.19 Unknown [facility] MEDICAID Unknown [id number] 2.16.840.1.556197.3.579.2.531 Unknown [id number] 2.16.840.1.756553.3.579.2.531 Social History Date Type Detail Facility Start: 04-06-2020 End: 03-10-2023 Tobacco smoking status OKIS Former smoker [facility] Start: 04-06-2020 Tobacco use and exposure Former user [place] Start: 04-06-2020 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) [place] Start: 1985 Sex Assigned At Not on file M [place], [place] Start: 10-25-2021 End: 02-12-2022 [facility] (event[facility] Start: 05-17-2021 Tobacco smoking stat us OKIS Never smoked tobacco [facility] Start: 05-17-2021 End: 03-10-2023 Tobacco use and exposure Smokeless tobacco non-user [facility] Start: 05-17-2021 Alcohol intake Lifetime non-d suresh (finding) [facility] Start: 06-29-2003 End: 12-27-2013 History of tobacco use Current smoker [facility] Start: 06-29-2003 End: 12-27-2013 History of tobacco use Cigarette Smoker [facility] Start: 05-06-2019 End: 01-15-2023 Cigarettes smoked current (pack per day) - Reported 0.5 [facility] 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 threatened to shut off services in your home in past 12Mo No [facility] (I/We) worried marcos er (my/our) food would run out before (I/we) got money to buy more. Never true [facility] Start: 08-31-2023 Alcohol Comment caffeine: 2-3 cups per day [facility] Clinical Notes 05-17-2021 to 05-05-2024 Patient InstructionsKaron Monsivais, BRENDON - 05/05/2024 10:54 AM Chrystal Nevarez NP - 04/27/2024 11:30 AM Fabi Cuellar PT - 04/19/2024 1:30 PM Amina Bridges MD - 04/19/2024 11:30 AM EDT Note Date & Type Note Facility 05-05-[address] - 05/05/2024 11:17 AM EST 1. Protein: Continue to strive for 96-128 g protein per day. Eat protein first at all meals. Lean meats, low fat/part skim dairy products, peanut butter, eggs, beans. 2. Eat 4 small meals per day or 3 meals and 1-2 small snacks for additional protein 3. Fluids: 64 oz per day, minimum. No carbonation, no caffeine, no calories, no alcohol. 4. Vitamin/minerals: Take daily bariatric vitamins, including: - ProCare DS/LEIDA Bariatric multivitamin with 60 mg Iron (1x per day) AND 0686-0673 mg calcium citrate daily taken in divided doses 5. Exercise: strive for daily activity - combine strength training and cardio for best workouts. Goal is 30 minutes 5-6x per week. 6. Practice these: Eat in this order protein first, vegetable and fruit second and whole grain carbohydrates last. * Separate eating and drinking by 30 minutes * Chew your food 20-30x per bite * Meals should last 30 minutes. 7. Aim for 1800 calories and 75-100 gm carbs per day -include high fiber starch choices such as: fruit, beans, lentils, whole grains, potatoes (with skin), brown rice, quinoa -for recipes: https://bariatricmealprep.[employer] [employer]/bar iatric-recipes/ https://www.bariatricfusion.com/b logs/blog/tagged/bariatric-recipe s https://www.Incentive.com/food-n utrition/e37011492/1-xubzitp-kvgu uy-ylwg-kxym-recipes/ https://www.bariatricmealcoach.co m https://www.bariatriceating.com/ https://www.treofoundation.org/co okbook/ Nutrition Monitoring & Evaluation: BMI < 60 Need for Follow up: 3 months, for annual. [phone] documented in this encounter [facility] 05-05-2024 Note HNO ID: [id number] Author: KARON MONSIVAIS RD Service: ? Author Type: Registered Dietitian Type: Progress Notes Filed: 05/05/2024 11:25 Note Text: [facility] Nutrition Therapy: Virtual Consult - Re-assessment I have communicated my name and active licensure. The patient?s identity and physical location were verified at the time of this visit. Either the patient or their legal parts counter representative has been informed of the risks and benefits of -- and alternatives to -- treatment through a remote evaluation and consents to proceed with the evaluation remotely. Nutrition Diagnosis: Altered Gastrointestinal Tract Function, related to, S/P bariatric surgery, as evidenced by patient update and PSH RECOMMENDED MALNUTRITION DIAGNOSIS: NO MALNUTRITION IDENTIFIED NUTRITION CARE PLAN: Nutrition Intervention 05/05/2024: Modify type and amount of food and beverage 1. Protein: Continue to strive for 96-128 g protein per day. Eat protein first at all meals. Lean meats, low fat/part skim dairy products, peanut butter, eggs, beans. 2. Eat 4 small meals per day or 3 meals and 1-2 small snacks for additional protein 3. Fluids: 64 oz per day, minimum. No carbonation, no caffeine, no calories, no alcohol. 4. Vitamin/minerals: Take daily bariatric vitamins, including: - ProCare DS/LEIDA Bariatric multivitamin with 60 mg Iron (1x per day) AND 1047-5250 mg calcium citrate daily taken in divided doses 5. Exercise: strive for daily activity - combine strength training and cardio for best workouts. Goal is 30 minutes 5-6x per week. 6. Practice these: Eat in this order protein first, vegetable and fruit second and whole grain carbohydrates last. * Separate eating and drinking by 30 minutes * Chew your food 20-30x per bite * Meals should last 30 minutes. 7. Aim for 1800 calories and 75-100 gm carbs per day -include high fiber starch choices such as: fruit, beans, lentils, whole grains, potatoes (with skin), brown rice, quinoa -for recipes: https://bariatricmealScrypt, Incp.com/bar iatric-recipes/ https://www.bariatricfusion.com/b logs/blog/tagged/bariatric-recipe s https://www.Incentive.com/food-n utrition/b81424589/5-jlmejby-hfwm nw-ehhz-xqjl-r ecipes/ https://www.bariatricmealcoach.co m https://www.bariatriceating.com/ https://www.treofoundation.org/co okbook/ Nutrition Monitoring AND Evaluation: BMI < 60 Need for Follow up: 3 months, for annual. [phone] PROGRESS: Interval History: Patient presents for follow up MNT 9 months post-op BPD with DS. Since last assessment Patient reports pursuing medical weight management with Dr. Nieto. Currently waiting on insurance approval for Moun[employer]o. Net weight loss 33 pounds ( 401 lbs initial) 8% TWL Pre-surgery weight: 388 pounds 1 pounds weight loss since last assessment (369 lbs) Patient notes desired weight of <300 pounds Diet recall indicates consistent meal pattern with no missed meals. Meals are balanced, however some inconsistent carb intake. Following Phase 5 diet appropriately. 8162-3126 calories/day - insufficient 110-120 protein intake/day - meeting needs 120 oz+ fluid intake/day - meeting needs Taking all vitamin/minerals. Labs reviewed, note Zinc deficiency and elevated Thiamin Resting Metabolic Rate:2335 Energy needs for weight loss 1095-9005 (10-15 harpreet/kg current weight) Protein needs: 96-128 grams protein per day (1.5 - 2.0 g/kg IBW kg) Exercise - consistent but likely falls below recommendations Nutrition Intervention 11/02/23: 1. Continue to take all recommended vitamin/minerals -ProCare DS/LEIDA Bariatric multivitamin with 60 mg Iron (1x per day) AND 1968-7923 mg calcium citrate daily taken in divided [...] by 30 min before and after eating Actions to implement interventions: Diet History: Breakfast - Protein shake (Premier) OR eggs and sausage Snack - sudanese yogurt Lunch - ham/turkey and cheese roll up Snack - sudanese yogurt Dinner - chicken and green beans, rare carb Snack - sometimes, pickle wrap Beverages - water (120 oz), Zero Sugar Minute Maid (8-10 oz) Alcohol - none Vitamins/Supplements - Pro Care Health MVI DS/LEIDA (1), calcium citrate (2300 mg) Activity: 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 [facility] 05-05-2024 History of Present illness Narrative [facility] Nutrition Therapy: Virtual Consult - Re-assessment I have communicated my name and active licensure. The patient s identity and physical location were verified at the time of this visit. Either the patient or their legal parts counter representative has been informed of the risks and benefits of -- and alternatives to -- treatment through a remote evaluation and consents to proceed with the evaluation remotely. Nutrition Diagnosis: Altered Gastrointestinal Tract Function, related to, S/P bariatric surgery, as evidenced by patient update and PSH RECOMMENDED MALNUTRITION DIAGNOSIS: NO MALNUTRITION IDENTIFIED NUTRITION CARE PLAN: Nutrition Intervention 05/05/2024: Modify type and amount of food and beverage 1. Protein: Continue to strive for 96-128 g protein per day. Eat protein first at all meals. Lean meats, low fat/part skim dairy products, peanut butter, eggs, beans. 2. Eat 4 small meals per day or 3 meals and 1-2 small snacks for additional protein 3. Fluids: 64 oz per day, minimum. No carbonation, no caffeine, no calories, no alcohol. 4. Vitamin/minerals: Take daily bariatric vitamins, including: - ProCare DS/LEIDA Bariatric multivitamin with 60 mg Iron (1x per day) AND 1637-7449 mg calcium citrate daily taken in divided doses 5. Exercise: strive for daily activity - combine strength training and cardio for best workouts. Goal is 30 minutes 5-6x per week. 6. Practice these: Eat in this order protein first, vegetable and fruit second and whole grain carbohydrates last. * Separate eating and drinking by 30 minutes * Chew your food 20-30x per bite * Meals should last 30 minutes. 7. Aim for 1800 calories and 75-100 gm carbs per day -include high fiber starch choices such as: fruit, beans, lentils, whole grains, potatoes (with skin), brown rice, quinoa -for recipes: https://bariatricmealOversi/bar iatric-recipes/ https://www.bariatricfusion.com/b logs/blog/tagged/bariatric-recipe s https://www.Incentive.[employer] [employer]/food-n utrition/s74317483/5-yypmvhf-ksli lt-ihfh-foth-recipes/ https://www.bariatricAllTheRoomsalceyeSight Mobile Technologies.co m https://www.bariatriceating.[employer] [employer]/ https://www.[employer].org/co okbook/ Nutrition Monitoring & Evaluation: BMI < 60 Need for Follow up: 3 months, for annual. [phone] PROGRESS: Interval History: Patient presents for follow up MNT 9 months post-op BPD with DS. Since last assessment Patient reports pursuing medical weight management with Dr. Nieto. Currently waiting on insurance approval for [employer]. Net weight loss 33 pounds ( 401 lbs initial) 8% TWL Pre-surgery weight: 388 pounds 1 pounds weight loss since last assessment (369 lbs) Patient notes desired weight of <300 pounds Diet recall indicates consistent meal pattern with no missed meals. Meals are balanced, however some inconsistent carb intake. Following Phase 5 diet appropriately. 0267-7116 calories/day - insufficient 110-120 protein intake/day - meeting needs 120 oz+ fluid intake/day - meeting needs Taking all vitamin/minerals. Labs reviewed, note Zinc deficiency and elevated Thiamin Resting Metabolic Rate:2335 Energy needs for weight loss 0302-2013 (10-15 harpreet/kg current weight) Protein needs: 96-128 grams protein per day (1.5 - 2.0 g/kg IBW kg) Exercise - consistent but likely falls below recommendations Nutrition Intervention 11/02/23: 1. Continue to take all recommended vitamin/minerals -ProCare DS/LEIDA Bariatric multivitamin with 60 mg Iron (1x per day) AND 7967-3343 mg calcium citrate daily taken in divided [...] by 30 min before and after eating Actions to implement interventions: Diet History: Breakfast - Protein shake (Premier) OR eggs and sausage Snack - sudanese yogurt Lunch - ham/turkey and cheese roll up Snack - sudanese yogurt Dinner - chicken and green beans, rare carb Snack - sometimes, pickle wrap Beverages - water (120 oz), Zero Sugar Minute Maid (8-10 oz) Alcohol - none Vitamins/Supplements - Pro Care Health MVI DS/LEIDA (1), calcium citrate (2300 mg) Activity: 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 RMR can't be calculated - Weight unrecorded in last 120 days. Malnutrition Screening Significant unintentional weight loss? No [...] affecting learning: None Likelihood of Adherence: High Referred by: Alicia BEVERLY Billing Type: Re-assess/15 min 2 units SIGNATURE: Karon Monsivais RD PATIENT NAME: Susi Ortiz DATE: May 05, 2024 TIME: 10:57 AM PAGER: N/A documented in this encounter [facility] 04-27-2024 History of Present illness Narrative Associated Order(s): L Inj/Asp: L knee Post-Procedure Diagnose(s): Arthritis of left knee Images from the original note were not included. Subjective Patient ID: Susi Ortiz is a 38 y.o. female. B/L Knee pain RT>LT 2 weeks s/p Depo medrol injection RT Knee (04/13/24) with 0% improvement. Notes the shot dulled the pain for a few hours but then the pain returned and is worse now. Pt states she fell about 4 weeks ago and fell onto the right knee (she believes on 03/30/24). States she fell forward landing on both knees onto carpet and she fell hard. She is not sure what happened, she states she just stood up and fell onto the knee. Went to [facility] and had xrays, which were negative for fracture. She was advised to ice, elevate and take OTC meds and was referred to ortho. Notes she had issues with both knees prior to the fall. Admits constant right anterior knee pain which is aching, worse with weight-bearing ambulation and radiates distally. Pain can be sharp when she straightens her legs. Admits cracking. Notes when it cracks pain shoots deep into her joint. Denies N/T. She is taking TYL, notes she is on cymbalta and cannot take nsaids. She tried voltaren w/o relief. She is icing. Admits locking/catching which she just noticed today. Admits giving out sensation when it catches. Admits waking at night. Pain at rest 6-7/10. Pain at worst 10/10 when she straightens her knee. States when she straightens her leg she gets a shooting pain deep in the joint. TX: [facility] ER/XR right knee 04/06/24, motrin, ice, depo medrol injection 04/13/24 LT Knee Pt states she fell about 4 weeks ago and fell onto the right knee (she believes on 03/30/24). States she fell forward landing on both knees onto carpet and she fell hard. She is not sure what happened, she states she just stood up and fell onto the knee. Went to [facility] and had xrays, which were negative for fracture. She was advised to ice, elevate and take OTC meds and was referred to ortho. Notes she had issues with both knees prior to the fall. Admits constant left anterior knee pain which is aching, worse with weight-bearing ambulation and radiates distally. Pain can be sharp when she straightens her legs. Admits cracking. Notes when it cracks pain shoots deep into her joint. Denies N/T. Pain worse going up stairs. She is taking TYL, notes she is on cymbalta and cannot take nsaids. She tried voltaren w/o relief. She is icing. Denies locking/catching Denies giving out sensation. Admits waking at night. Pain at rest 4-5/10. Pain at worst 8/10 with activity. States when she straightens her leg she gets a shooting pain deep in the joint. TX: tyl, ice, votlaren, Objective Ortho Exam Knee Musculoskeletal Exam Gait Limp: right Inspection Right Erythema: none Effusion: none Ecchymosis: none Left Erythema: none Effusion: none Edema: none Ecchymosis: none Palpation Right Crepitus: patellofemoral Tenderness: present Patella: moderate Left Crepitus: patellofemoral Tenderness: present Medial joint line: moderate Range of Motion Right Active extension: 0 Active flexion: 115 Left Active extension: 0 Active flexion: 115 L Inj/Asp: L knee on 04/27/2024 11:54 AM Indications: pain Details: 20 G needle, anterolateral approach Medications: 40 mg methylPREDNISolone acetate 40 MG/ML UTILIZING ASEPTIC TECHNIQUE PT GIVEN INJECTION IN LEFT KNEE, NEUROVASC INTACT S/P INJ, TOLERATED WELL Procedure, treatment alternatives, risks and benefits explained, specific risks discussed. Consent was given by the patient. Assessment/Plan Encounter Diagnoses: ICD-10-CM 1. Arthritis of right knee M17.11 2. Right knee pain, unspecified chronicity M25.561 3. Internal derangement of right knee M23.91 LORazepam (Ativan) 0.5 MG tablet In regards to the right knee discussion of due to failure of conservative treatment would recommend an MRI of the right knee without contrast, activities as tolerated, f/u s/p MRI to be done at [facility] in [place] In regards to the left knee Discussion of options, pt notes she would like an injection, side effects of bleeding and infection discussed, would like to proceed with the injection, using aspectic technique 40 mg of depo medrol was injected into the left lateral knee, pt tolerated well, bandaid applied, may do activities as tolerated documented in this encounter [facility] 04-19-2024 History of Present illness Narrative Physical Therapy Treatment Visit Patient Name: Susi Ortiz Today's Date: 04/19/2024 Encounter Diagnoses Name Primary? Low back pain, unspecified back pain laterality, unspecified chronicity, unspecified whether sciatica present Yes Visit number: 7 Timed Code Treatment Minutes: 39 minutes Total Treatment Time: 49 minutes Time In: 1330 Time Out: 1420 History: Pt states she has had back pain for last 20 years. Had 2 surgeries before age 30 and was told would need spine fused but did not want to do at that time. Two prior surgeries were L4/5 and L5/S1 discectomies. Has not been back to neurosurgeon. would like her to try Pain Management and PT before deciding on surgery. Pt states she has been to Pain Management before but always seemed to make pain worse. Precautions: [place] Subjective: Pt states she had injection in right knee last week without relief. Missed last week due to having to care for her grandmother who is pretty much bed bound. Since caring for her grandma; pt states low back pain has gotten bad again and she is getting occasional shooting pain in right buttock. Pain: 4-5/10 Objective: PT Evaluation (03/04/2024) LUMBAR SPINE AROM: flex fingers to mid maradiaga with increase pain, extension limited to neutral with increase LBP, right SB WFL without increase pain, left SB WFL with increase pain at end range. Bilateral hip flexion limited to 90 degrees in supine due to pain. Joint play: Unable to assess due to severe pain with mild pressure Strength: bilateral hips 4-/5 due to pain, knees 4-/5 due to pain with resistance, ankle DF 4-/5 due to pain, great toe ext 4/5 bilateral Muscle length: Palpation: severe tenderness with palpation to central lumbar region; moderate to severe tenderness to bilateral paraspinals Special Test: LBP with bilateral DANA Neurological: Reflexes: hypo bilateral patellar reflex Myotomes: negative bilateral Dermatomes: decrease left L5 dermatome Special Test: negative slump testing bilateral, Treatment: Education: HEP education with demonstration, Educated on Eval Findings and POC Manual Therapy: () Passive ROM, Joint mobilization, Soft Tissue Mobilization, Myofascial Release, Muscle Energy Technique, Neural Mobilization, Myofascial Cupping, Dry Needling, IASTM, and Scar mobilization as needed. SB manual lumbar traction Therapeutic Exercise: (39 minutes) Strength, Endurance, Flexibility, ROM, HEP, Neural Mobilization, Power, and Core Stability as needed. Pt instructed in and performed HEP with good understanding. Discussed importance of core stabilization ex for improved lumbar stability. Therapeutic Activity: Exercises to improve dynamic activities, functional tasks, functional mobility to return to prior activity level as needed. Neuromuscular re-education: () Balance Training, Muscle Facilitation, Dynamic Stability, Core Stabilization, and Blood Flow Restriction Training (BFRT) as needed. Modalities: Heat, Ice, Electrical Stimulation, Ultrasound, Cervical Mechanical Traction, Lumbar Mechanical Traction, Iontophoresis, and Fluidotherapy as needed. CP to lumbar region after ex in supine x 10 minutes Assessment: Pt has completed 7 PT sessions for low back pain. Pt with limited progressions or standing exercises this date due to complaints of increase pain right lower lumbar region. Pt requires occasional sitting rest breaks due to pain. Outcome Measure: Back Index: 34/50 Rehab Diagnosis: low back pain, limited trunk ROM and mobility, decrease core and LE strength Short Term Goal: To be met in 2 weeks Goal 1: Pt to be instructed in home exercise program. Senior Lead Project Manager Goals: To be met in 10 weeks Goal 1: Pt to report independence and compliance with home program. Goal 2: Pt to report pain no greater than 4/10 with function tasks, ADL's, and work related activities. Goal 3: Pt to have full trunk ROM without complaints of increase pain at end ranges to assist with functional tasks. Goal 4: Pt to score no greater than 20 on Back Index indicating improved QOL. Goal 5: Pt to achieve 4 to 4+/5 strength bilateral hips and quads to assist with functional mobility. Pt will benefit from skilled PT for 2x/week from 03/04/2024 to 05/13/2024 to address the above impairments. I hereby deem this POC medically necessary. Please sign below. Date: documented in this encounter [facility] 04-19-2024 History of Present illness Narrative I have communicated my name and active licensure. The patient's identity and physical location were verified at the time of this visit. Either the patient or their legal parts counter representative has been informed of the risks [...] 03/31/2023 Joe Granda MD LAPAROSCOPY ENTEROLYSIS Visit: 8 months Today's Visit: Wt 167 kg (368 lb 3.2 oz) BMI 63.2 kg/m2 BMI 63.20 kg/(m^2) Last Visit: Wt: 167.4 kg (369 lb) BMI: 63.34 kg/(m^2) Total weight loss: 8.985 kg (19 lb 13 oz) [place] weight: 66.1 kg (145 lb 10.6 oz) Excess weight: 109.9 kg (242 lb 5.6 oz) % of excess body weight lost: 8.985 kg (19 lb 13 oz) (8.17% of excess weight loss) COMPLICATIONS SINCE LAST VISIT?: NONE -frustrated by minimal weight loss DIET INTAKE: tolerates Phase V diet-has an appt coming up May [address] -B: protein shake -snack: Oikos Triple Zero yogurt -L: ham and cheese, no bread, roll up -snack: yogurt -D: chicken, and green beans -snacks: -beverages: drinking enough water-always has water with her-advised to avoid skipping meals and to try healthy protein shake as a meal replacement; also advised to avoid carbonated/sugary/caloric/alcohol ic beverages DAILY SUPPLEMENTS: Calcium: Calcium Citrate w/ vitamin D (1200 - 1500mg) Multivitamin & Minerals: Bariatric MVI one a day Procare DS Iron Supplement: included in multi-vitamin Vitamin B12: included in multivitamin Vitamin D3: included in multi-vitamin Other: N/A, Biotin EXERCISE: difficult last 2 weeks (her step-dad ), exercising has been hard; before then was walking 2-3 times a week and PT 2 x a week, she plans to ease her way back into this. Doing core strengthening and suggested d/w PT other strength training she can safely do Current Outpatient Medications Medication Sig metFORMIN ER (GLUCOPHAGE XR) 500 mg 24 hr tablet take 1 tablet by mouth daily with dinner Zinc Acetate, Oral, 25 mg (zinc) cap [...] diarrhea, melena, hematochezia PHYSICAL EXAM: Wt (!) 167 kg (368 lb 3.2 oz) LMP 07/08/2023 (Approximate) BMI 63.20 kg/m General: alert and appropriate, in no [...] modifier) done on: 08/04/[address] Granda -at last visit, concerned for weight loss stall. Advised to look into Met, Top, phentermine, Wegovy or Zepbound as options. -begun on Metformin at last visit. -labs done 11/19; due for 6 month labs (extended labs) Convo: -drinking enough water, and watching what she eats -still taking Metformin-no side effects or issues. Does have Prediabetes-will try Mounjaro; no personal or family h/o MTC; no h/o pancreatitis; may consider Topamax (has taken before, and didn't work well/had side effects pituitary tumor); has taken Phentermine before; Contrave-suggested looking into this as well. -follow up approx Jun or Jul with surgeon/Jayshree, as well RD and medical. DISPOSITION: Return 3 month to Post-op follow up/ individual office visit EDUCATION: Encouraged to continue with healthy lifestyle changes and incorporate cardiovascular and resistance training, Discussed weight loss expectations after bariatric and metabolic surgery, or Discussed importance of protein intake as per the RDN note REFERRALS: Continue follow up with Bariatric RD and psychology if desired LABS: Today: CBC W DIFF, CMP, Vitamin B1, Vitamin B12, Folate, PTH Intact, Vitamin D25OH, Iron/TIBC/Ferritin, Lipids, HBA1C, and See Epic Orders In 6 months: CBC W DIFF, CMP, Vitamin B1, Vitamin B12, Folate, PTH Intact, Vitamin D25OH, Iron/TIBC/Ferritin, Lipids, HBA1C, and See Epic Orders Amina Nieto MD I spent a total of 30 minutes on the date of the service which included preparing to see the patient, [id number] patient care, obtaining and/or reviewing separately obtained history, counseling and educating the patient/family/caregiver, ordering medications, tests, or procedures, and care coordination (not separately reported). (OTHER): -11/03/23 OV BMI/Nadege CARDIAC: -Procedure Date : Mar 10 2023 EKG Diagnosis: NORMAL SINUS RHYTHM NORMAL ECG documented in this encounter [facility] 04-19-2024 Note HNO ID: [id number] Author: AMINA NIETO MD Service: ? Author Type: Physician Type: Progress Notes Filed: 04/20/2024 14:45 Note Text: I have communicated my name and active licensure. The patient's identity and physical location were verified at the time of this visit. Either the patient or their legal parts counter representative has been informed of the risks [...] 03/31/2023 Joe Granda MD LAPAROSCOPY ENTEROLYSIS Visit: 8 months Today's Visit: Wt 167 kg (368 lb 3.2 oz) BMI 63.2 kg/m2 BMI 63.20 kg/(m2) Last Visit: Wt: 167.4 kg (369 lb) BMI: 63.34 kg/(m2) Total weight loss: 8.985 kg (19 lb 13 oz) [place] weight: 66.1 kg (145 lb 10.6 oz) Excess weight: 109.9 kg (242 lb 5.6 oz) % of excess body weight lost: 8.985 kg (19 lb 13 oz) (8.17% of excess weight loss) COMPLICATIONS SINCE LAST VISIT?: NONE -frustrated by minimal weight loss DIET INTAKE: tolerates Phase V diet-has an appt coming up May [address] -B: protein shake -snack: Oikos Triple Zero yogurt -L: ham and cheese, no bread, roll up -snack: yogurt -D: chicken, and green beans -snacks: -beverages: drinking enough water-always has water with her-advised to avoid skipping meals and to try healthy protein shake as a meal replacement; also advised to avoid carbonated/sugary/caloric/alcohol ic beverages DAILY SUPPLEMENTS: Calcium: Calcium Citrate w/ vitamin D (1200 - 1500mg) Multivitamin AND Minerals: Bariatric MVI one a day Coleen LOREDO Iron Supplement: included in multi-vitamin Vitamin B12: included in multivitamin Vitamin D3: included in multi-vitamin Other: N/A, Biotin EXERCISE: difficult last 2 weeks (her step-dad ), exercising has been hard; before then was walking 2-3 times a week and PT 2 x a week, she plans to ease her way back into this. Doing core strengthening and suggested d/w PT other strength training she can safely do Current Outpatient Medications Medication Sig metFORMIN ER (GLUCOPHAGE XR) 500 mg 24 hr tablet take 1 tablet by mouth daily with dinner Zinc Acetate, Oral, 25 mg (zinc) cap [...] diarrhea, melena, hematochezia PHYSICAL EXAM: Wt (!) 167 kg (368 lb 3.2 oz) LMP 07/08/2023 (Approximate) BMI 63.20 kg/m? General: alert and appropriate, in no [...] modifier) done on: 08/04/[address] Granda -at last visit, concerned for weight loss stall. Advised to look into Met, Top, phentermine, Wegovy or Zepbound as options. -begun on Metformin at last visit. -labs done 11/19; due for 6 month labs (extended labs) Convo: -drinking enough water, and watching what she eats -still taking Metformin-no side effects or issues. Does have Prediabetes-will tr (more content not included)... [facility] 04-13-2024 History of Present illness Narrative Associated Order(s): L Inj/Asp: R knee Post-Procedure Diagnose(s): Arthritis of right knee Images from the original note were not included. Subjective Patient ID: Susi Ortiz is a 38 y.o. female. B/L Knee pain RT>LT Pt states she fell about 2 weeks ago and fell onto the right knee (she believes on 03/30/24). States she fell forward landing on both knees onto carpet and she fell hard. She is not sure what happened, she states she just stood up and fell onto the knee. Went to [facility] ER and had xrays, which were negative for fracture. She was advised to ice, elevate and take OTC meds and was referred to ortho. Notes she had issues with both knees prior to the fall. Admits constant right anterior knee pain which is aching, worse with weight-bearing ambulation and radiates distally. Pain can be sharp when she straightens her legs. Admits cracking. Denies N/T. She is taking TYL, notes she is on cymbalta and cannot take nsaids. She is icing. Admits locking/catching which she just noticed today. Admits giving out sensation when it catches. Admits waking at night, notes she wakes up often anyways, unsure if the knee pain wakes her up. Pain at rest 6/10. Pain at worst 9/10 when she straightens her knee. States when she straightens her leg she gets a shooting pain deep in the joint. TX: [facility] ER/XR right knee 04/06/24, motrin, ice Objective Right Knee Exam Tests Drawer: Anterior - normal Posterior - normal Knee Musculoskeletal Exam Inspection Right Erythema: none Effusion: none Ecchymosis: none Palpation Right Crepitus: patellofemoral Tenderness: present Medial joint line: moderate Patella: moderate Range of Motion Right Active extension: 0 Active flexion: 115 Strength Right Extension: 4/5. Flexion: 4/5. Left Extension: 4/5. Flexion: 4/5. Instability Right Varus stress grade: normal Valgus stress grade: normal Anterior drawer: normal Posterior drawer: normal I reviewed the [facility] ([place], [place]) er note from 04/06/24, pt fell on 04/02/24 and had been having pain since, dispensed a knee brace and also had xrays done in the er. I reviewed the xrays of the right knee done on 04/06/[address] [facility] ([place], [place]) reveals Tricompartment mild degenerative knee arthritis. L Inj/Asp: R knee on 04/13/2024 12:08 PM Indications: pain Details: 20 G needle, anterolateral approach Medications: 40 mg methylPREDNISolone acetate 40 MG/ML UTILIZING ASEPTIC TECHNIQUE PT GIVEN INJECTION IN RIGHT KNEE, NEUROVASC INTACT S/P INJ, TOLERATED WELL Procedure, treatment alternatives, risks and benefits explained, specific risks discussed. Consent was given by the patient. Assessment/Plan Encounter Diagnoses: ICD-10-CM 1. Right knee pain, unspecified chronicity M25.561 2. Arthritis of right knee M17.11 Discussion of voltaren gel and also injections. pt notes she would like an injection, side effects of bleeding and infection discussed, would like to proceed with the injection, using aspectic technique 40 mg of depo medrol was injected into the right lateral knee, pt tolerated well, bandaid applied, may do activities as tolerated, f/u in 2 weeks. documented in this encounter [facility] 11-03-2023 History of Present illness Narrative I have communicated my name and active licensure. The patient's identity and physical location were verified at the time of this visit. Either the patient or their legal parts counter representative has been informed of the risks [...] loss: 8.623 kg (19 lb 0.2 oz) [place] weight: 66.1 kg (145 lb 10.6 oz) Excess weight: 109.9 kg (242 lb 5.6 oz) % of excess body weight lost: 8.623 kg (19 lb 0.2 oz) (7.84% of excess weight loss) COMPLICATIONS SINCE LAST VISIT?: NONE DIET INTAKE: tolerates Phase V diet See recent Account Support Rep appointment -B: protein shake, -snack: Oikos bkft -L: ham and cheese -roll up -snack: Oikos -D: chicken -snacks: -beverages: she gets enough fluids in; advised to avoid skipping meals and to try healthy protein shake as a meal replacement; also advised to avoid carbonated/sugary/caloric/alcohol ic beverages DAILY SUPPLEMENTS: Calcium: Calcium Citrate w/ [...] Zepbound in future, around 6 month postop rosana. -continue follow up with BMI Nutrition and [...] which included preparing to see the patient, [id number] patient care, obtaining and/or reviewing separately obtained history, counseling and educating the patient/family/caregiver, ordering medications, tests, or procedures, and care coordination (not separately reported). (OTHER): -11/02/23 OV BMI/M. Gita -11/02/23 OV BMI/Nutrition/A. Sayra CARDIAC: -Procedure Date : Mar 10 2023 EKG Diagnosis: NORMAL SINUS RHYTHM NORMAL ECG documented in this encounter [facility] 11-03-2023 Note HNO ID: [id number] Author: AMINA NIETO MD Service: ? Author Type: Physician Type: Progress Notes Filed: 11/04/2023 16:46 Note Text: I have communicated my name and active licensure. The patient's identity and physical location were verified at the time of this visit. Either the patient or their legal parts counter representative has been informed of the risks and benefits of -- and alternatives to -- treatment through a remote evaluation and consents to proceed with the evaluation remotely. Name: Susi Ortiz Index Surgery Date of Surgery: 08/04/2023 Surgeon: Joe Grnada MD Surgical Procedure: GASTRECTOMY, GASTRIC RESTRICTIVE PARTIAL [...] loss: 8.623 kg (19 lb 0.2 oz) [place] weight: 66.1 kg (145 lb 10.6 oz) Excess weight: 109.9 kg (242 lb 5.6 oz) % of excess body weight lost: 8.623 kg (19 lb 0.2 oz) (7.84% of excess weight loss) COMPLICATIONS SINCE LAST VISIT?: NONE DIET INTAKE: tolerates Phase V diet See recent Account Support Rep appointment -B: protein shake, -snack: Oikos bkft -L: ham and cheese -roll up -snack: Oikos -D: chicken -snacks: -beverages: she gets enough fluids in; advised to avoid skipping meals and to try healthy protein shake as a meal replacement; also advised to avoid carbonated/sugary/caloric/alcohol ic beverages DAILY SUPPLEMENTS: Calcium: Calcium Citrate w/ [...] Zepbound in future, around 6 month postop rosana. -continue follow up with BMI Nutrition and [...] Today: See E (more content not included)... [facility] 11-02-2023 Instructions GitaJayshree APRN.CNP - 11/02/2023 4:43 PM EDT Please make a follow up with Dr Nieto for help with further weight loss. You can call the [facility] [phone] to schedule. Let me know if you have trouble getting an appointment documented in this encounter [facility] 11-02-2023 Note HNO ID: [id number] Author: JAYSHREE HUFFMAN APRN.CNP Service: ? Author Type: Nurse Practitioner Type: Progress Notes Filed: 11/02/2023 16:45 Note Text: BMI SURGERY Post Op Clinic Note - virtual visit I have communicated my name and active licensure. The patient's identity and physical location were verified at the time of this visit. Either the patient or their legal parts counter representative has been informed of the risks [...] loss: 8.623 kg (19 lb 0.2 oz) [place] weight: 66.1 kg (145 lb 10.6 oz) [...] deli black forest 3 slices and cheese (israeli 2 slices) Snack yesterday - 000 yogurt [...] tobacco given increased (more content not included)... [facility] 11-02-2023 History of Present illness Narrative BMI SURGERY Post Op Clinic Note - virtual visit I have communicated my name and active licensure. The patient's identity and physical location were verified at the time of this visit. Either the patient or their legal parts counter representative has been informed of the risks [...] loss: 8.623 kg (19 lb 0.2 oz) [place] weight: 66.1 kg (145 lb 10.6 oz) [...] deli black forest 3 slices and cheese (israeli 2 slices) Snack yesterday - 000 yogurt [...] Follow up with OM and BRENDON Huffman APRN.AQUARIUM SPECIALIST Medical Decision Making: Problems: Moderate: 1+ chronic illnesses with change and 2+ stable chronic illnesses Data: Unique test result(s) reviewed: 3+ Risk: Low: Low risk from testing/treatment Medical Decision Making Level: 4 - Moderate documented in this encounter [facility] 11-02-[address] - 11/02/2023 10:34 AM EDT Reviewed nutrition principles of: 1. Continue to take all recommended vitamin/minerals -ProCare DS/LEIDA Bariatric multivitamin with 60 mg Iron (1x per day) AND 5236-2833 mg calcium citrate daily taken in divided [...] Follow up: 6 months post op, scheduling [phone] documented in this encounter [facility] 11-02-2023 History of Present illness Narrative I have communicated my name and active licensure. The patient's identity and physical location were verified at the time of this visit. Either the patient or their legal parts counter representative has been informed of the risks [...] per day. 3 months post op BPD-DS (Alicia 08/04/23) Net weight loss 31.2 pounds (401 [...] Rate: 2344 Energy needs for weight loss 8088-5672 kcal/day (10-15 harpreet/kg current weight) Protein needs: 96-128 grams protein per day (1.2 g/kg IBW kg) Reviewed nutrition principles of: 1. Continue to take all recommended vitamin/minerals -ProCare DS/LEIDA Bariatric multivitamin with 60 mg Iron (1x per day) AND 1948-7170 mg calcium citrate daily taken in divided [...] Follow up: 6 months post op, scheduling [phone] Appointment Start Time: 9:45am Appointment End Time: 10:20am Time Spent on Consult: 35 minutes - Group Mary Colbert RD documented in this encounter [facility] 11-02-2023 Note HNO ID: [id number] Author: MARY COLBERT RD Service: ? Author Type: Registered Dietitian Type: Progress Notes Filed: 11/02/2023 10:34 Note Text: I have communicated my name and active licensure. The patient's identity and physical location were verified at the time of this visit. Either the patient or their legal parts counter representative has been informed of the risks [...] per day. 3 months post op BPD-DS (Alicia 08/04/23) Net weight loss 31.2 pounds (401 [...] Rate: 2344 Energy needs for weight loss 4113-3239 kcal/day (10-15 harpreet/kg current weight) Protein needs: 96-128 grams protein per day (1.2 g/kg IBW kg) Reviewed nutrition principles of: 1. Continue to take all recommended vitamin/minerals -ProCare DS/LEIDA Bariatric multivitamin with 60 mg Iron (1x per day) AND 3540-9534 mg calcium citrate daily taken in divided [...] Follow up: 6 months post op, scheduling [phone] Appointment Start Time: 9:45am Appointment End Time: 10:20am Time Spent on Consult: 35 minutes - Group Mary Colbert RD [facility] 09-07-2023 Note HNO ID: [id number] Author: JAYSHREE HUFFMAN APRN.AQUARIUM SPECIALIST Service: ? Author Type: Nurse Practitioner Type: [...] loss: 6.128 kg (13 lb 8.2 oz) [place] weight: 66.1 kg (145 lb 10.6 oz) [...] Orders FOLLOW UP: as scheduled Jayshree Huffman APRN.KATTY [facility] 09-07-2023 History of Present illness Narrative BMI SURGERY Post Op Clinic [...] loss: 6.128 kg (13 lb 8.2 oz) [place] weight: 66.1 kg (145 lb 10.6 oz) [...] Orders FOLLOW UP: as scheduled Jayshree Huffman APRN.KATTY documented in this encounter [facility] 08-31-[address] - 08/31/2023 12:14 PM EST Reviewed nutrition principles of: 1. Continue to take all recommended vitamin/minerals - ProCare DS/LEIDA Bariatric multivitamin with 60 mg Iron (1x per day) AND 4503-1577 mg calcium citrate daily 2. Protein goal: [...] try softer vegetables such as broccoli florets, [place] lettuce, red-leaf lettuce or [place] lettuce. Remember to chew vegetables thoroughly (chew 25 times) and swallow only when chewing has made it into a mushy pureed consistency. If you have trouble with gas, avoid eating gas-producing vegetables such as onions, cauliflower, garlic, scallions, leeks, [place] sprouts and cabbage. Avoid starchy vegetables such as potatoes (sweet and white), yams, yucca, plantain and corn at this time. Nutrition Monitoring & Evaluation: BMI < 60 Criteria: weight check and patient update Need for Follow up: 3 months post op, scheduling [phone] documented in this encounter [facility] 08-31-2023 Note HNO ID: [id number] Author: CHRISTOPHER SANTIAGO, PhD Service: ? Author Type: Psychologist Type: Progress Notes Filed: 08/31/2023 11:36 Note Text: [facility] Cost Center: [facility] Billing code: Gautam CPT Code: 57740 GROUP PSYCHOTHERAPY 93453 Brief Emotional/Behavioral Assessment with scoring/documentation (3 units) [...] a copy of the consent form on Addy. The patient consented to a virtual visit and their location was confirmed. I have communicated my name and active licensure. The patient's identity and physical location were verified at the time of this visit. Either the patient or their legal parts counter representative has been informed of the risks [...] PROMIS [employer] (more content not included)... [facility] 08-31-2023 History of Present illness Narrative I have communicated my name and active licensure. The patient's identity and physical location were verified at the time of this visit. Either the patient or their legal parts counter representative has been informed of the risks [...] per day. 1 months post op BPD-DS (Alicia 08/04/23) Net weight loss 39 pounds (401 [...] Rate: 2308 Energy needs for weight loss 0304-1030 kcal/day (10-15 harpreet/kg current weight) Protein needs: 96-128 grams protein per day (1.2 g/kg IBW kg) Reviewed nutrition principles of: 1. Continue to take all recommended vitamin/minerals - ProCare DS/LEIDA Bariatric multivitamin with 60 mg Iron (1x per day) AND 0256-5982 mg calcium citrate daily 2. Protein goal: [...] broccoli florets, [place] lettuce, red-leaf lettuce or [place] lettuce. Remember to chew vegetables thoroughly (chew 25 times) and swallow only when chewing has made it into a mushy pureed consistency. If you have trouble with gas, avoid eating gas-producing vegetables such as onions, cauliflower, garlic, scallions, leeks, [place] sprouts and cabbage. Avoid starchy vegetables such as potatoes (sweet and white), yams, yucca, plantain and corn at this time. Nutrition Monitoring & Evaluation: BMI < 60 Criteria: weight check and patient update Need for Follow up: 3 months post op, scheduling [phone] Appointment Start Time: 9:45am Appointment End Time: 10:35am Time Spent on Consult: 50 minutes - Group Mary Colbert RD documented in this encounter [facility] 08-31-2023 Note HNO ID: [id number] Author: MARY COLBERT RD Service: ? Author Type: Registered Dietitian Type: Progress Notes Filed: 08/31/2023 12:14 Note Text: I have communicated my name and active licensure. The patient's identity and physical location were verified at the time of this visit. Either the patient or their legal parts counter representative has been informed of the risks [...] per day. 1 months post op BPD-DS (Alicia 08/04/23) Net weight loss 39 pounds (401 [...] Rate: 2308 Energy needs for weight loss 0010-6091 kcal/day (10-15 harpreet/kg current weight) Protein needs: 96-128 grams protein per day (1.2 g/kg IBW kg) Reviewed nutrition principles of: 1. Continue to take all recommended vitamin/minerals - ProCare DS/LEIDA Bariatric multivitamin with 60 mg Iron (1x per day) AND 3964-4717 mg calcium citrate daily 2. Protein goal: [...] it is recommended (more content not included)... [facility] 08-19-[address] - 08/19/2023 12:18 PM EST 1. Continue vitamins Research post-op vitamins for LEIDA/DS procedure: - Bariatric Fusion ADEK Complete Capsule (3x per day) AND 4115-0747 mg calcium citrate OR - Bariatric Advantage High ADEK Chewable Multivitamin (2x per day) AND 4553-6605 mg calcium citrate OR -Celebrate multi-ADEK chewable (3x per day) AND 7635-1081 mg calcium citrate AND 1 chewable Iron 45-60 mg AND OR -ProCare DS/LEIDA Bariatric multivitamin with 60 mg Iron (1x per day) AND 3195-7429 mg calcium citrate daily 2. Protein goal: [...] at 1 month) The [facility] [place] [facility] has 2 virtual support group meetings: This is the [employer] link with meeting number that will be used for all of the THURSDAY virtual support groups this year, on the Thursday of each month 5:30-6:30PM Join from the meeting link [email or web address] Join by meeting number Meeting number (access code): [phone] Meeting password: [email or web address] The schedule with dates, times, topics, and facilitators can be found here: [email or web address] [email or web address] This is the [employer] link with meeting number that will be used for the Open Discussion ( Food for Thought ) support group on the Thursday of each month 5:30-6:30PM Join from the meeting link [email or web address] Join by meeting number Meeting number (access code): [phone] Meeting password: [email or web address] Hope to see you there! Nutrition Monitoring & Evaluation: Advance diet to phase 3 by next visit Criteria: patient recall Need for Follow up: 1 month post op documented in this encounter [facility] 08-19-2023 Note HNO ID: [id number] Author: KARON MONSIVAIS RD Service: ? Author Type: Registered [...] visit. Either the patient or their legal parts counter representative has been informed of the risks [...] yet taking recommended vitamin/minerals, however plans for RelateIQ ADEK + 2000 mg calcium citrate. Exercise includes walking most days. Labs not available to evaluate. Reviewed nutrition principles of: 1. Continue vitamins Research post-op vitamins for LEIDA/DS procedure: - Bariatric Fusion ADEK Complete Capsule (3x per day) AND 8601-6234 mg calcium citrate OR - Bariatric Advantage High ADEK Chewable Multivitamin (2x per day) AND 0078-2694 mg calcium citrate OR -Celebrate multi-ADEK chewable (3x per day) AND 0625-1969 mg calcium citrate AND 1 chewable Iron 45-60 mg AND OR -ProCare DS/LEIDA Bariatric multivitamin with 60 mg Iron (1x per day) AND 5992-9078 mg calcium citrate daily 2. Protein goal: [...] at 1 month) The [facility] [place] [facility] has 2 virtual support group meetings: This is the [employer] link with meeting number that will be used for all of the THURSDAY virtual support groups this year, on the Thursday of each month 5:30-6:30PM Join from the meeting link [email or web address] Join by meeting number Meeting number (access code): [phone] Meeting password: [facility] The schedule with dates, times, topics, and facilitators can be found here: [email or web address] [email or web address] This is the [employer] link with meeting number that will be used for the Open Discussion ( Food for Thought ) support group on the First Thursday of each month 5:30-6:30PM Join from the meeting link [email or web address] Join by meeting number Meeting number (access code): [phone] Meeting password: [email or web address] Hope to see you there! Nutrition Monitoring AND Evaluation: Advance diet to phase 3 by next visit Criteria: patient recall Need for Follow up: 1 month (more content not included)... [facility] 08-19-2023 History of Present illness Narrative This visit was performed virtually [...] visit. Either the patient or their legal parts counter representative has been informed of the risks [...] yet taking recommended vitamin/minerals, however plans for RelateIQ ADEK + 2000 mg calcium citrate. Exercise includes walking most days. Labs not available to evaluate. Reviewed nutrition principles of: 1. Continue vitamins Research post-op vitamins for LEIDA/DS procedure: - Bariatric Fusion ADEK Complete Capsule (3x per day) AND 1455-1096 mg calcium citrate OR - Bariatric Advantage High ADEK Chewable Multivitamin (2x per day) AND 2741-6597 mg calcium citrate OR -Celebrate multi-ADEK chewable (3x per day) AND 5960-0085 mg calcium citrate AND 1 chewable Iron 45-60 mg AND OR -ProCare DS/LEIDA Bariatric multivitamin with 60 mg Iron (1x per day) AND 1427-3564 mg calcium citrate daily 2. Protein goal: [...] at 1 month) The [facility] [place] [facility] has 2 virtual support group meetings: This is the [employer] link with meeting number that will be used for all of the THURSDAY virtual support groups this year, on the Thursday of each month 5:30-6:30PM Join from the meeting link [email or web address] Join by meeting number Meeting number (access code): [phone] Meeting password: [email or web address] The schedule with dates, times, topics, and facilitators can be found here: [email or web address] [email or web address]/[email or web address]/patient-educa tion/after-surgery This is the [employer] link with meeting number that will be used for the Open Discussion ( Food for Thought ) support group on the First Thursday of each month 5:30-6:30PM Join from the meeting link [email or web address] .[email or web address] Join by meeting number Meeting number (access code): [phone] Meeting password: [email or web address] Hope to see you there! Nutrition Monitoring & Evaluation: Advance diet to phase 3 by next visit Criteria: patient recall Need for Follow up: 1 month post op Appointment Start Time: 11:45 AM Appointment End Time: 12:15 PM Time Spent on Consult: 30 minutes - Group Karno Monsivais RD documented in this encounter [facility] 08-17-2023 Note HNO ID: [id number] Author: JAYSHREE HUFFMAN APRN.AQUARIUM SPECIALIST Service: ? Author Type: Nurse Practitioner Type: Progress Notes Filed: 08/17/2023 10:41 Note Text: Assessment BMI Surgical PostOp Clinic Note August 17, 2023 INTERVAL HISTORY: Susi Milesenship is here for 13 day post op [...] loss: 8.2 kg (18 lb 1.2 oz) [place] weight: 66.1 kg (145 lb 10.6 oz) [...] refilled zofran Activity: (more content not included)... [facility] 08-17-2023 History of Present illness Narrative Assessment BMI Surgical PostOp Clinic [...] loss: 8.2 kg (18 lb 1.2 oz) [place] weight: 66.1 kg (145 lb 10.6 oz) [...] line. Abdomen: soft, no distention Impression: Susi rOtiz is a 38 year old female with [...] Jayshree Huffman APRN.KATTY documented in this encounter [facility] 08-13-2023 Miscellaneous Notes BMI SPECIALTY CARE [...] appt. Reminded patient of how to reach [facility] or their surgeons office. Patient reminded to seek medical attention if they develop chest pain, a sudden onset of shortness of breath or persistent pain in the calf of their legs - BEST TO ALWAYS present to [facility] hospital where you had your surgery Patient verbalized understanding of all advice and instructions given. Cynthia Peterson RN documented in this encounter [facility] 08-11-2023 Note HNO ID: [id number] Author: ?, ?, ? Service: ? Author Type: ? Type: Plan of Care Filed: 08/11/2023 17:07 Note Text: PHARMACY BEDSIDE DELIVERY SERVICE Patient Name: Susi Ortiz The marked outpatient medications were Filled at: [place] and delivered to the patient's bedside to [facility] Medication List START taking these medications [...] mg tablet Commonly known as: ABBEY López (Photogrammetrist) PAGER: [phone] August 11, 2023 5:05 PM [facility] 08-11-2023 Note HNO ID: [id number] Author: GLENIS NAZARIO MD Service: General Surgery Author Type: Resident Type: Progress Notes Filed: 08/11/2023 07:06 Note Text: General Surgery Progress Note Name: Susi Ortiz Bed: -PK3C28/FV-NX3H-47 ASSESSMENT AND PLAN Susi Ortiz is a [...] Nazario MD General Surgery, Resident Please contact [facility] pager for any questions [phone] during the daytime hours from 6a to 6p. Contact [phone] for nights and weekends Subjective -No acute [...] MG 2.0 1.8 1.8 Imaging None today [facility] 08-10-2023 Note HNO ID: [id number] Author: GLENIS NAZARIO MD Service: General Surgery Author Type: Resident Type: Progress Notes Filed: 08/10/2023 08:01 Note Text: General Surgery Progress Note Name: Susi Ortiz Bed: [place] [address]/[address]28 ASSESSMENT AND PLAN Susi Ortiz is a [...] twice daily MSK: OOB to chair Dispo: law GUZMAN DC tomorrow 08/11 Plan to be discussed with staff Glenis Nazario MD General Surgery, Resident Please contact [facility] pager for any questions [phone] during the daytime hours from 6a to 6p. Contact [phone] for nights and weekends Subjective -No acute [...] 97 MG 1.8 1.8 Imaging None today [facility] 08-09-2023 Note HNO ID: [id number] Author: ANGELA COPELAND MD Service: General Surgery Author Type: Physician Type: Progress Notes Filed: 08/09/2023 09:41 Note Text: General Surgery Progress Note Name: Susi Ortiz [facility] Date: August 08, 2023 ASSESSMENT AND PLAN [...] staff Patrica Anaya MD General Surgery, Resident [phone] Please contact [facility] pager for any questions [phone] during the daytime hours from 6a to 6p. Contact [phone] for nights and weekends Subjective -No acute [...] incision. Tolerating some fluids. Philly Copeland MD [facility] 08-09-2023 Note HNO ID: [id number] Author: MAYANK VELARDE RN Service: ? Author Type: Registered Nurse Type: Nursing Progress Note Filed: 08/09/2023 06:08 Note Text: 0608: page SROC pt potassium came back 3.5 this morning. [facility] 08-08-2023 Note HNO ID: [id number] Author: ANGELA COPELAND MD Service: General Surgery Author Type: Physician Type: Progress Notes Filed: 08/08/2023 09:33 Note Text: General Surgery Progress Note Name: Susi Ortiz Bed: [address]/[facility] Date: August 08, 2023 ASSESSMENT AND PLAN [...] No gas yet today. Philly Copeland MD [facility] 08-07-2023 Note HNO ID: [id number] Author: MAICO MCCLAIN MD Service: General Surgery Author Type: Resident Type: Progress Notes Filed: 08/07/2023 09:26 Note Text: General Surgery Progress Note Name: Susi Ortiz Bed: -PK3C28/FV-EP2L-10 Date: August 07, 2023 ASSESSMENT AND PLAN [...] this interval not displayed. Imaging None today [facility] 08-06-2023 Note HNO ID: [id number] Author: MAICO MCCLAIN MD Service: General Surgery Author Type: Resident Type: Progress Notes Filed: 08/06/2023 15:58 Note Text: General Surgery Progress Note Name: Susi Ortiz Bed: [address] Date: August 06, 2023 ASSESSMENT AND [...] 2.0 -- -- 1.8 Imaging None today [facility] 08-06-2023 Note HNO ID: [id number] Author: JOE GRANDA MD Service: General Surgery [...] of VTE prophylactic dosing Joe Granda MD [facility] 08-05-2023 Note HNO ID: [id number] Author: JOE GRANDA MD Service: General Surgery Author Type: Physician Type: Progress Notes Filed: 08/05/2023 15:58 Note Text: General Surgery Progress Note Name: Susi Ortiz Bed: [place] [address] Date: August 05, 2023 ASSESSMENT AND [...] Doing well POD 1. Joe Granda MD [facility] 08-05-2023 Note HNO ID: [id number] Author: ALMA CONNORS LSW Service: Care Management Author Type: Water Tester Type: Care Mgt Initial Assessment Filed: 08/05/2023 12:20 Note Text: CARE MANAGEMENT: ASSESSMENT AND DISCHARGE PLAN SERVICE DATE: August 05, 2023 SERVICE TIME: 12:17 PM PCP: Elizabet Simental DO, DO Primary Contact: Extended Emergency Contact Information Primary Emergency Contact: Evita Eckert [facility] Mobile Relation: Grandparent Secondary Emergency Contact: Ritchie Stephens [facility] Mobile Relation: Mother Admission Status: Inpatient Insurance Provider: [place] OF [place] Discharge Planning requested by: Per Department Practice Potential Transition Plans No Services Indicated Advance Directives Current Advance Directive: None Java Lead Architect Attempted to Assist with AD Completion: Yes Action: Patient Unwilling Current Living Arrangements and Support Lives with: Children Type of Residence: Private Residence (Apartment or Condo) Does the patient have to climb stairs at home?: Yes;stairs outside the home Support: Family members How do you manage to accomplish the following: Independent: Ambulation;Transportation to appointments/community;Bathe/Show er;Dress;Meals/Meal Prep;Going to the bathroom;Medication Management Current Services/Equipment Current Post-Acute Service(s): None Discharge Planning Patient Goal(s): General wellness, Be able to go home [place] of Choice Explained: [place] of Choice Given: No Reason Not Given: [...] unemployed, drives. Does not utilize any DME, halfway or community resources. No skilled needs identified at this time. DC transportation will be provided by family. SIGNATURE: LELAND Kumar PATIENT NAME: Susi Ortiz DATE: August 05, 2023 TIME: 12:17 PM CONTACT #: [phone] [facility] 08-05-2023 Note HNO ID: [id number] Author: RADHA LARSON MD Service: General Surgery [...] q8h - Continue NPO Radha Larson MD [facility] Pager [phone] Subjective: pain well controlled on current regimen, [...] ALLERGIES Allergen Reacti (more content not included)... [facility] 08-04-2023 Note HNO ID: [id number] Author: MARIIA AGUERO APRN.CRNA Service: ? Author Type: Nurse Sail Cutter Type: Anesthesia Procedure Notes Filed: 08/04/2023 14:30 Note Text: ANESTHESIOLOGY PROCEDURE NOTE Gastric Tube General Information Procedure Start Time/Medication Administration: 08/04/2023 1:15 PM Patient location during procedure: OR Indication: gastric decompression Staffing Anesthesiologist: Amanda Alcantar DO STOCK LAYER: Mariia Aguero APRN.STOCK LAYER Performed by: CHEKO Procedure Details Type: Nasogastric tube Cortrak monitor used: No Size: 18 Fr cm Distance Advanced: 55 cm Securement: taped to the nose Placement Confirmation: KUB ordered/pending Successful Placement: yes Post-Procedure Details SIGNATURE: Mariia Aguero APRN.CRNA PATIENT NAME: Susi Borjahip DATE: August 04, 2023 TIME: 2:23 PM CSN: [id number] [facility] 08-04-2023 Note HNO ID: [id number] Author: JUDE LOPEZ DO Service: Anesthesiology Author Type: Anesthesiologist Type: Anesthesia Procedure Notes Filed: 08/04/2023 12:19 Note Text: ANESTHESIOLOGY PROCEDURE NOTE Epidural Block General Information Procedure Start Time/Medication Administration: 08/04/2023 7:27 AM Patient location during procedure: pre-op Informed Consent Consent Obtained: Written [place] Protocol A moment to CARE was completed. [...] 3 Needle and Epidural Catheter Needle type: Forum Info-Techtead Needle gauge: 17G Needle length: 6 in [...] August 04, 2023 TIME: 12:10 PM CSN: [id number] [facility] 08-04-2023 Note HNO ID: [id number] Author: MARIIA AGUERO APRN.STOCK LAYER Service: ? Author Type: Nurse Sail Cutter Type: Anesthesia Procedure Notes Filed: 08/04/2023 10:01 Note Text: ANESTHESIOLOGY PROCEDURE NOTE Airway General Information Procedure Start Time/Medication Administration: 08/04/2023 8:47 AM Patient location during procedure: OR Patient identity confirmed: arm band and patient Staffing Anesthesiologist: Amanda Alcantar DO STOCK LAYER: Mariia Aguero APRN.STOCK LAYER Performed by: other anesthesia staff Indications and Patient Condition Indications for airway management: anesthesia Preoxygenated: yes anesthesia circuit Patient position: sniffing Method: modified rapid sequence Difficult Mask: No Airway Accessory: oral airway Final Airway Details Final airway type: endotracheal airway Final Endotracheal Airway: ETT Cuffed: yes Successful intubation technique: video laryngoscopy Devices used: [employer] Endotracheal tube insertion site: oral Blade size: #4 ETT size (mm): 7.5 Measured from: lips Measurement (cm): 22 Placement verified by: capnometry Cormack-Lehane Classification: grade I - full view of glottis Number of attempts at approach: 1 Airway not difficult Comments Atraumatic intubation. Dentition and lips remain the same as preop. Critical care FINANCIAL INSTITUTION BRANCH MANAGER performed intubation. SIGNATURE: Mariia Aguero APRN.STOCK LAYER PATIENT NAME: Susi Naqvi Ortiz DATE: August 04, 2023 TIME: 9:58 AM CSN: [id number] [facility] 08-04-2023 Note HNO ID: [id number] Author: AMANDA ALCANTAR DO Service: Anesthesiology Author Type: Physician Type: Anesthesia Procedure Notes Filed: 08/04/2023 09:33 Note Text: ANESTHESIOLOGY PROCEDURE NOTE A-Line General Information Procedure Start Time/Medication Administration: 08/04/2023 9:02 AM Patient location during procedure: OR Consent Obtained: Yes Indications: continuous blood pressure monitoring Staffing Anesthesiologist: Amanda Alcantar DO STOCK LAYER: Mariia Aguero APRN.STOCK LAYER Performed by: anesthesiologist Preparation Sterility Preparation: hand [...] August 04, 2023 TIME: 9:32 AM CSN: [id number] [facility] 08-04-2023 Note HNO ID: [id number] Author: AMANDA ALCANTAR DO Service: Anesthesiology Author Type: Physician Type: Anesthesia Procedure Notes Filed: 08/04/2023 09:32 Note Text: ANESTHESIOLOGY PROCEDURE NOTE PIV General Information Procedure Start Time/Medication Administration: 08/04/2023 9:20 AM Patient Location: OR Staffing Anesthesiologist: Amanda Alcantar DO STOCK LAYER: Mariia Aguero APRN.STOCK LAYER Other anesthesia staff/rotator: Cari Elizondo APRN.STOCK LAYER Performed by: anesthesiologist Preparation Sterility Preparation: hand hygiene performed prior to procedure Site Prep: Betadine and chlorhexidine Procedure Details Indication: need for IV access Needle Size/Type: 14 gauge angiocath Orientation: Left Location: Antecubital Imaging Guidance Used: Yes Image in Chart: Yes SIGNATURE: Amanda Alcantar DO PATIENT NAME: Susi Naqvi [facility] DATE: August 04, 2023 TIME: 9:30 AM CSN: [id number] [facility] 08-03-2023 Miscellaneous Notes BMI SPECIALTY CARE COORDINATION SURGERY PRE-OP EDUCATION NOTE Phoned patient to reinforce prior pre-op instruction and answer any questions she might have. No answer. Left brief vmm including contact info for this RN and requested call back. documented in this encounter [facility] 07-21-2023 Note HNO ID: [id number] Author: EARL MCGEE RD Service: ? Author [...] visit. Either the patient or their legal parts counter representative has been informed of the risks [...] Advanced Nutrition OR 5.5 packets/day Light Start Sinclair Breakfast Essentials mixed with 1% or skim [...] from poultry, beef, fish, seafood, eggs, cheese, [place]orese yogurt, cottage cheese, beans, lentils, tofu. Choose meat products that are tender, shredded and/or ground to increase tolerance. Remember to chew food well, eat slow, take small bites CHANGES IN TREATMENT: Patient met goal(s): Yes Diagnosis: has not changed. Allergies: Adhes. Paow-Gcaq-Bprdqgaziaqb, Adhesive Tape-Silicones, Augmentin [Amoxicillin-Pot Clavulanate], Keflex [Cephalexin], [...] Significant unintentional weight (more content not included)... [facility] 07-20-2023 Note HNO ID: [id number] Author: JOE GRANDA MD Service: ? Author Type: Physician Type: Progress Notes Filed: 07/20/2023 14:06 Note Text: SURGERY PREOPERATIVE VISIT NOTE Name: Susi Ortiz Medical Record: [id number] Encounter No.: [id number] Susi Ortiz is a 38 year old [...] use: Never ALLERGIES: ALLERGIES Allergen Reactions Adhes. Mktc-Jomj-Vy* Rash Adhesive Tape-Silic* Rash Augmentin [Amoxicil* Diarrhea [...] regarding unsatisfactory weight loss as well as nissan sales consultant weight regain. I have also discussed medical [...] well and christian (more content not included)... [facility] 06-11-2023 Note HNO ID: [id number] Author: Heidy Dsouza RN Service: ? Author Type: ? Type: Progress Notes Filed: 06/11/2023 5:30 PM Note Text: Received approval for open LEIDA. Scheduled on 08/04/[address] Granda at . [facility] 04-27-2023 Miscellaneous Notes This patient underwent [...] Joe Granda MD documented in this encounter [facility] 04-13-2023 History of Present illness Narrative Patient presented for virtual visit, however she has not yet had bariatric surgery and does not need 2 week post op visit at this time. Will be rescheduled 2 weeks before surgery once scheduled. Mary Colbert RD, SHERITA documented in this encounter [facility] 04-11-2023 Note HNO ID: [id number] Author: Note, Interface Service: ? Author Type: ? Type: Progress Notes Filed: 04/11/2023 3:29 AM Note Text: Epic Scheduled Downtime: 04/11/2023 1:00:00 AM to 04/11/2023 1:28:00 AM [facility] 04-01-2023 Note HNO ID: [id number] Author: Mary Hughes MD Service: General Surgery [...] pain control Plan discussed with staff Dr Alicia Hughes M.D. General Surgery Resident For team paging 6AM-6PM during weekdays: [phone] for [facility] Team For team paging after 6PM or on weekend / holidays: [phone] for General Surgery Subjective: - No acute [...] 1006 APTT 30.3 INR 0.9 Cardiac Enzymes [facility] 03-31-2023 Note HNO ID: [id number] Author: Heber Riddle SRNA Service: ? Author Type: Student Type: Anesthesia Procedure Notes Filed: 03/31/2023 11:20 AM Note Text: ANESTHESIOLOGY PROCEDURE NOTE Airway General Information Procedure Start Time/Medication Administration: 03/31/2023 10:35 AM Patient location during procedure: OR Timeout Performed Pre-procedure: timeout performed Consent Obtained: Yes Patient identity confirmed: arm band and patient Staffing Anesthesiologist: Darrel Conklin MD STOCK LAYER: Sheridan Claire APRN.STOCK LAYER SRNA: Heber Riddle SRNA Performed by: LILIANA [...] March 31, 2023 TIME: 11:18 AM CSN: [id number] [facility] 03-10-2023 Instructions Shruti Alvarado APRN.AQUARIUM SPECIALIST - 03/10/2023 2:02 PM EDT PATIENT PREOPERATIVE INSTRUCTIONS Joe Granda MD has scheduled you for your procedure at this surgery center: [facility]: [phone] --[id number] [place] [address]. Please check in on the 1st floor [...] Procedures: - YOU MUST HAVE A RESPONSIBLE GROUP CHIEF OPERATOR TAKE YOU HOME. A CUT OFF [employer]ER [employer]ING[employer] OR TAKE OUT WAITER CANNOT BE MADE A RESPONSIBLE GROUP CHIEF OPERATOR. - We recommend that a responsible person [...] Advance Directive, please fax a copy to [phone] or email to for it to be [...] Shruti Alvarado APRN.KATTY documented in this encounter [facility] 03-10-2023 History and physical note HISTORY [...] medication comments found. ALLERGIES Allergen Reactions Adhes. Jjdy-Zsor-Xd* Rash Adhesive Tape-Silic* Rash Augmentin [Amoxicil* Diarrhea Keflex [Cephalexin] Rash, Itching Penicillins Hives Ultram [Tramadol Hc* Itching COVID VACCINATION STATUS: Fully vaccinated REVIEW OF SYSTEMS: PAIN ASSESSMENT: General: No weight loss, malaise or fevers. Neuro: No history of TIA's, stroke, ORACLE TECHNICAL DEVELOPER tumor, impaired sensorium, hemiplegia, paraplegia or quadraplegia. No neurological symptoms or problems. Positive for Migraines on Inderal Respiratory: Positive for TONEY non compliant with CPAP , Negative for No history of current cough or dyspnea, or pneumonia in the past 6 weeks. No history of respiratory/pulmonary symptoms or problems Cardiovascular: No history of HTN requiring medication, no history of angina, CHF, VA, cardiac surgery or stents. Denies rest pain, gangrene or revascularization/amputation for PVD. No history of cardiovascular symptoms or problems. GI: See HPI : No history of dysuria, frequency or incontinence,, stones or chronic kidney disease, No difficulty urinating, nocturia > 1 time per night or hematuria AMMUNITION SPECIALIST: Negative for abnormal vaginal bleeding, abnormal vaginal [...] normal intervals, reviewed by myself., reviewed by inspector tester sorter. All in [facility] Assessment/Plan TONEY on CPAP Assessment: non compliant with CPAP Gastroesophageal reflux disease Assessment: stable on PPI Bipolar affective disorder ([facility]) Assessment: stable on medication Denies any suicidal ideations Morbid obesity with body mass index of 60.0-69.9 in adult ([facility]) Assessment: Body mass index is 68.66 kg/m . Thrombocytosis ([facility]) Assessment: s/p splenectomy in 2014, Elevated [...] TIME: 1:33 PM documented in this encounter [facility] 03-05-[address] - 03/05/2023 1:53 PM EDT Instructions for Liquid Diet before surgery Start the full liquid diet 3 weeks before surgery - Use only the approved protein shakes: 4.5 bottles/day Slim Fast Advanced Nutrition OR 5.5 packets/day Light Start Sinclair Breakfast Essentials mixed with 1% or skim [...] from poultry, beef, fish, seafood, eggs, cheese, [place]orese yogurt, cottage cheese, beans, lentils, tofu. Choose meat products that are tender, shredded and/or ground to increase tolerance. Remember to chew food well, eat slow, take small bites documented in this encounter [facility] 03-05-2023 History of Present illness Narrative I have communicated my name and active licensure. The patient's identity and physical location were verified at the time of this visit. Either the patient or their legal parts counter representative has been informed of the risks [...] Advanced Nutrition OR 5.5 packets/day Light Start Sinclair Breakfast Essentials mixed with 1% or skim [...] from poultry, beef, fish, seafood, eggs, cheese, [place]orese yogurt, cottage cheese, beans, lentils, tofu. Choose meat products that are tender, shredded and/or ground to increase tolerance. Remember to chew food well, eat slow, take small bites CHANGES IN TREATMENT: Patient met goal(s): Partially Diagnosis: has not changed. Allergies: Adhes. Ubdi-Gqpm-Xuysfqttatgd, Adhesive Tape-Silicones, Augmentin [Amoxicillin-Pot Clavulanate], Keflex [Cephalexin], [...] 1800- 2400 mg per day Calcium Citrate https://www.bariatricfusion.com/c ollections/adek/products/bariatri x-ggtxunpkzcoy-ittr-adek-vitamin- with-iron OR - 2 per day Bariatric Advantage High ADEK Multivitamin Capsules AND 4849-8898 mg per day Calcium Citrate AND 45-60 mg per day Iron https://www.bariatricadvantage.co m/edmc-dyvz-hxabrjfrpjlc-capsules OR - 2 per day Celebrate Multi-ADEK with Iron Chewable Tablets AND 3521-7804 mg per day Calcium Citrate https://Tunaspots.[employer] Locksmith/pro ducts/acurh-gjnh-jldq-iron?varian j=[id number] OR -1 per day ProCare DS/LEIDA Bariatric Multivitamin with 60 mg Iron AND 7470-2820 mg per day Calcium Citrate https://Flash Auto Detailing/My-Hammer-Lindsey Shelltnah-flfe-isanl-bariatric-multivi gupmm-moyndpg-fj-leida/?sku=Vit-Ba jkYjftRS-OPXU-09qk S-LEIDA-30ct Nutrition Monitoring & Evaluation: Follow pre op diet and fluid guidelines Criteria: weight check Need for Follow up: 2 weeks post op Appointment Start Time: 1:00 pm Appointment End Time: 1:21 pm Time Spent on Consult: 21 minutes - Group SIGNATURE: Isabela Renee RD PATIENT NAME: Susi Borjahip DATE: 03/05/2023 TIME: 12:55 PM PAGER: documented in this encounter [facility] 01-05-2023 Miscellaneous Notes [facility] SPECIALTY CARE COORDINATION SURGERY APPROVAL CALL Received e-mail confirmation of insurance approval for bariatric surgery.Pre-operative call placed to the patient, this RN spoke with patient and agreed upon a surgery date of February 03 2023. Surgical episode request sent to [facility] surgery scheduling. 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 Creatinine level 0.81 Patient instructed to start pre-op 800 calorie total protein liquid diet daily beginning 2 weeks prior to surgery. - Stop all ASA and NSAID products, [place] 3 fish oil, herbal products such as [...] Pt instructed to fax FMLA forms to [phone] and allow 7-10 days for completion. - Deandra video assigned. - All questions and concerns addressed and patient verbalized understanding. - Patient case reviewed. All nutrition appointments completed, psychology clearance obtained, surgeon visit and procedure type verified, medical optimization obtained and all testing complete. 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 Yes, patient has Con ABO. Pao Hodgson RN documented in this encounter [facility] 12-15-[address] - 12/15/2022 3:28 PM EDT 1. [...] 1800- 2400 mg per day Calcium Citrate https://www.bariatricfusion.com/c ollections/adek/products/bariatri z-twqvjcwsghsh-duyd-adek-vitamin- with-iron OR - 2 per day Bariatric Advantage High ADEK Multivitamin Capsules AND 4892-2140 mg per day Calcium Citrate AND 45-60 mg per day Iron https://www.bariatricadR&M Engineering.BioCision m/kkcr-huvp-jfyxzzhmpdqs-capsules OR - 2 per day Celebrate Multi-ADEK with Iron Chewable Tablets AND 4289-1444 mg per day Calcium Citrate https://Moonfrye/pro ducts/ykzro-qhwv-ssnb-iron?varian o=[id number] OR -1 per day ProCare DS/LEIDA Bariatric Multivitamin with 60 mg Iron AND 2860-2355 mg per day Calcium Citrate https://Flash Auto Detailing/procare-he gqwe-fgds-clpcf-bariatric-multivi jjtny-ofhbfov-xe-leida/?sku=Vit-Ba tiWtvgPX-DBRH-24qb S-LEIDA-30ct documented in this encounter [facility] 12-15-2022 History of Present illness Narrative [facility] Nutrition Therapy: Virtual Consult - Re-assessment I have communicated my name and active licensure. The patient's identity and physical location were verified at the time of this visit. Either the patient or their legal parts counter representative has been informed of the risks [...] 1800- 2400 mg per day Calcium Citrate https://www.bariatricfusion.com/c ollections/adek/products/bariatri f-upxuhubteszq-pken-adek-vitamin- with-iron OR - 2 per day Bariatric Advantage High ADEK Multivitamin Capsules AND 8047-4473 mg per day Calcium Citrate AND 45-60 mg per day Iron https://www.bariatricadvantage.co m/bzdv-mmjm-qlwchokapiew-capsules OR - 2 per day Celebrate Multi-ADEK with Iron Chewable Tablets AND 1758-5299 mg per day Calcium Citrate https://celebrateKaufmann Mercantiles.com/pro ducts/lvvci-zhuo-fjkr-iron?varian p=[id number] OR -1 per day ProCare DS/LEIDA Bariatric Multivitamin with 60 mg Iron AND 7718-1789 mg per day Calcium Citrate https://Flash Auto Detailing/procare-he hwni-nnqc-rlyzx-bariatric-multivi vwljo-vxmhkee-je-leida/?sku=Vit-Ba vqHkfpBE-EPNS-87fv S-LEIDA-30ct Nutrition Monitoring & Evaluation: Weight loss [...] ADEK Complete Capsule (3x per day) AND 9920-0016 mg calcium citrate https://www.bariatricfusion.com/c ollections/adek/products/bariatri h-lwuffqbdfxvt-kefh-adek-vitamin- with-iron OR - Bariatric Advantage High ADEK Chewable Multivitamin (2x per day) AND 3851-6674 mg calcium citrate https://www.bariatricadvantage.co m/ufcz-qzjz-mxdpgfzhuzqp-capsules OR -Celebrate multi-ADEK chewable (3x per day) AND 9811-3352 mg calcium citrate AND 1 chewable Iron 45-60 mg https://GrasprebSoundFocuss.com/pro ducts/multi-adek?xrvvkmp=[id number] 48162 OR -ProCare DS/LEIDA Bariatric multivitamin with 60 mg Iron (1x per day) AND 0222-7421 mg calcium citrate daily https://Flash Auto Detailing/procare-he uczw-clcf-gbvna-bariatric-multivi xsuba-rnttzll-wr-leida/?sku=Vit-Ba igSrlbQW-ANMW-09nq 2. Protein goal: 77 grams protein/day. Protein [...] Advanced Nutrition OR 5.5 packets/day Light Start Sinclair Breakfast Essentials mixed with 1% or skim [...] None Likelihood of Adherence: Moderate Referred/Supervised by: Alicia BEVERLY Billing Type: Re-assess/15 min 1 unit SIGNATURE: Isabela Renee RD PATIENT NAME: Susi Ortiz DATE: 12/15/2022 TIME: 3:08 PM PAGER: documented in this encounter [facility] 12-13-2022 Evaluation note Encounter Date Diagnosis [...] that time. Patient verbalized understanding treatment plan. pinion-pins Other 06-07-2023 History of Present illness Narrative* [...] selecting actual surgery date. Heidy Dsouza RN Senior Engineer for Cony Soler MD Covering for Joe Granda MD [facility]23 NoteEXAMINATION: XR CHEST 2 V HISTORY: [...] Electronically authenticated by: DARREL NICHOLS Date: 2022-08-12 15:04[facility]12-07-2022 Instructions* Patient Instructions* Amina Nieto MD - 06/04/2022 6:53 PM EST INSTRUCTIONS: 1) Please contact me (Dr. Nieto) if you have not heard about your test results within a few days after you had them done. Thank you: Contact information: [facility] [place] M61/Attention: Dr. Nieto [address] [place] [address] 2) Please check with your insurance company regarding cost/coverage of any tests ordered prior to having them completed. Edinson Ortiz , Thank you for completing your visit today and we welcome you to the surgical program. We are sure that you will still have some additional questions and encourage you to reach out to your care provider via [employer] OR your Patient Navigator. Patient Navigators are assigned alphabetically by patient last name. The contact information for each Navigator is listed below. Last names A-E= Bushra- Last names F-L = Joanna- Last names M-R= Alma- Last names S-Z= Dawson Additionally, you may [...] free to ask for a hard copy. https://[email or web address]/-/scassets/files/org/bariatric/guides/bmiguideboo [email or web address]?la=en Once you complete all of the requirements (testing, consultations, diet, etc) from each provider, please call [phone] and select option #5 to initiate insurance approval. Please note scheduling information It is important to keep track of your scheduled appointments to ensure successful completion of oursurgical program. Any missed appointments can further delay your pre-surgical work-up. [facility] does offer an opt-in option for getting text message appointment reminders. Please follow the link below if you would like to opt into this service. [email or web address] As part of your surgical work up, [...] these tests. You may call your local [facility] to get an appointment. - Lab work- No appointment is needed for this, you may complete at any [facility].These are usually fasting labs, please be sure to fast (only water permitted) for 10-12 hours priorto the test. -Sleep Study- Please call [phone] or [phone] to get this appointment set up. -Sleep Medicine Consult- (Only needed if sleep study confirms sleep apnea) Please call [phone] to schedule an appointment. Any testing that is completed outside of [facility] will need faxed to [phone]. 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) -tobacco use: non-smoker -ETOH: doesn't drink ALL: SEe Mandoyo LABS: IMAGING: PROC: CARDIAC: MEDS: See Epic [...] cardiac, valvular or vascular issues *no h/o VA, CHF, CAD, no cp/palpitations Respiratory: Denies any [...] -she had labs done at her local facility-[facility]; check remaining presurgical labs, CXR, EKG (had recent CT abd); will try to get the labs from [place]; Will mail her orders so she can get them done locally and try to obtain recent labs from [facility] 2)Sleep disordered breathing: external sleep study scanned in Epic-+TONEY -check sleep study and refer to Sleep medicine-she will try to have these done locally. Amina Nieto MD I spent a total of 45 minutes on the date of the service which included preparing to see the patient, fepf-yb-bwmx patient care, completing clinical documentation, obtaining and/or reviewing separately obtained history, counseling and educating the patient/family/caregiver, ordering medications, keli ts, or procedures, and care coordination (not separately reported). 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 Pao Hodgson RN * Telephone Encounter - Jessica Rodriguez - 05/01/2022 1:55 PM EDT Pt has questions regarding upcoming surgery PH: [phone] documented in [facility] encounterGrant [facility]11-04-2022 Miscellaneous Notes* Telephone Encounter - Pao Hodgosn RN - 05/02/2022 9:59 AM EDT I [...] 9:20 AM EDT AMBULATORY TELEPHONE VISIT Susi Donya Ortiz has consented to this telephone encounter. [...] switch. Joe Granda MD documented in this encounterGrant Hospital10-21-2022 Miscellaneous Notes* Telephone Encounter - Pao Hodgson RN - 04/18/2022 1:34 PM EDT [facility] COORDINATION SURGERY SCHEDULING CALL Received e-mail confirmation of insurance approval for bariatric surgery.Pre- operative call placed to the patient, this RN spoke with patient and agreed upon a surgery date of June 10 2022. Surgical episode request sent to [facility] surgery scheduling. Patient understands that the surgery type is partial gastrectomy with gastrojejunostomy . Creatinine level pending results Patient instructed to start pre-op 800 calorie total protein liquid diet daily beginning 2 weeks prior to surgery provided creatinine is in range. - Stop all ASA and NSAID products, [place] 3 fish oil, herbal products such as [...] Pt instructed to fax FMLA forms to [phone] and allow 7-10 days for completion. Deandra [...] ordered Pao Hodgson RN documented in this encounterGrant Hospital10-19-2022 History of Present illness Narrative* Joe [...] which included preparing to see the patient, jcrs-iv-lnmo patient care, and completing clinical documentation, test ordering, care coordination. Joe Granda MD documented in this encounterGrant Hospital10-19-2022 Evaluation note* Encounter Date Diagnosis Assessment [...] Mar, Right foot pain (ICD-10 - M79.671) pinion-pins Other 10-14-2022 NotePROCEDURE: XR GI UPPER W [...] Electronically authenticated by: ESTELLA WHITEHEAD Date: 2022-04-11 10:21[facility]10-14-2022 NotePROCEDURE: XR GI UPPER W KUB SINGLE [...] Electronically authenticated by: ESTELLA WHITEHEAD Date: 2022-04-11 10:21[facility]09-29-2022 Evaluation note* Encounter Date Diagnosis Assessment Notes Treatment Notes Treatment Clinical Notes Feb, Gastroesophageal ref lux disease, esophagitis presence not specified (ICD-10 - K21.9) pinion-pins Other 09-12-2022 History of Present illness Narrative* Joe Granda MD - 03/10/2022 3:37 PM EDT VIRTUAL VISIT PROGRESS NOTE This is a virtual visit using Addy video visit. It required patient-provider interaction for [...] which included preparing to see the patient, ljat-pj-vjtg patient care, completing clinical documentation, obtaining and/or reviewing separately obtained history, and care coordination (not separately reported) Joe Granda MD documented in this encounterGrant Hospital08-17-2022 NoteHNO ID: [id number] Author: SHIREEN Solo Service: Radiology Author Type: Technologist Type: [...] and Intact, Site disposition Discontinued SIGNED BY: SHIREEN SOLO February 12, 2022 2:58 PMAMountain [facility] [id number] History of Present illness Narrative* SHIREEN Solo - 02/12/2022 3:30 PM EDT Radiology [...] and Intact, Site disposition Discontinued SIGNED BY: SHIREEN SOLO February 12, 2022 2:58 PM documented in this encounterGrant Hospital08-17-2022 Nurse Note* Elizabeth Stephens RN - [...] 2022 TIME: 2:30 PM documented in this encounterGrant Hospital07-25-2022 History of Present illness Narrative* Joe Granda MD - 01/20/2022 2:37 PM EDT VIRTUAL VISIT PROGRESS NOTE This is a virtual visit using Addy video visit. It required patient-provider interaction for [...] for this visit. ALLERGIES Allergen Reactions Adhes. Cpjy-Ohcf-Gd* Rash Adhesive Tape-Silic* Rash Augmentin [Amoxicil* Diarrhea [...] which included preparing to see the patient, zoef-gj-wrqp patient care, completing clinical documentation, obtaining and/or reviewing separately obtained history, performing a medically appropriate examination, counseling and educating the pat ient/family/caregiver, ordering medications, tests, or procedures, communicating with other HCPs (not separately reported) and care coordination (not separately reported) Joe Granda MD documented in this encounterGrant Hospital07-22-2022 History of Present illness Narrative* Karon Macarioi, RD - 01/17/2022 9:12 AM EDT [...] and 4 hours apart from additional calcium www.SearchlesareAuraSense Therapeutics.[place] L[employer] - Bariatric Choice: 4 Complete Multivitamins (chewables) [...] Slim Fast Advanced Nutrition OR Light Start Sinclair Breakfast Essentials mixed with 1% or skim [...] intake at meals and snacks Please call [phone], option 5. Leave a message for the navigation team when you are finishedwith all clearances (nutrition, psychology, medical, surgeon) 1.Starting ~3 weeks after surgery take: daily multivitamin Vit D3 3,000 international unit(s) Vit B12 500 mcg Vit B1 20-100 mg Iron 45 mg Calcium CITRATE 8505-9135 mg/day OR It is okay to use combination vitamin/minerals to reduce pill volume. (Examples Procare [employer]isk [employer] Bariatric Multivitamin- 45 (1) chewable/day AND 2354-5767 mg calcium citrate OR Bariatric Fusion chewable complete bariatric vitamin (2) chews, twice daily. IF DS: - Bariatric Fusion ADEK Complete Capsule (3x per day) AND 8317-3813 mg calcium citrate OR - Bariatric Advantage High ADEK Chewable Multivitamin (2x per day) AND 2218-6809 mg calcium citrate OR -Celebrate multi-ADEK chewable (3x per day) AND 4819-7464 mg calcium citrate AND 1 chewable Iron [...] Advanced Nutrition OR 5.5 packets Light Start Sinclair Breakfast Essentials mixed with 1% or skim [...] Consult: 45 minutes - Group Signed by: Karon Monsivais RD documented in this encounterGrant Hospital07-22-2022 Instructions* Patient Instructions* Karon Monsivais RD - 01/17/2022 9:12 AM EDT Please call [phone], option 5. Leave a message for the navigation team when you are finishedwith all clearances (nutrition, psychology, medical, surgeon) 1.Starting ~3 weeks after surgery take: daily multivitamin Vit D3 3,000 international unit(s) Vit B12 500 mcg Vit B1 20-100 mg Iron 45 mg Calcium CITRATE 8839-3001 mg/day OR It is okay to use combination vitamin/minerals to reduce pill volume. (Examples [employer] Bariatric Multivitamin- 45 (1) chewable/day AND 1073-3869 mg calcium citrate OR Bariatric Fusion chewable complete bariatric vitamin (2) chews, twice daily. IF DS: - Bariatric Fusion ADEK Complete Capsule (3x per day) AND 4890-4728 mg calcium citrate OR - Bariatric Advantage High ADEK Chewable Multivitamin (2x per day) AND 1425-4159 mg calcium citrate OR -Celebrate multi-ADEK chewable (3x per day) AND 5609-6284 mg calcium citrate AND 1 chewable Iron [...] Advanced Nutrition OR 5.5 packets Light Start Sinclair Breakfast Essentials mixed with 1% or skim [...] up: 2 weeks pre-op documented in this encounterGrant Hospital06-22-2022 History and physical note * Joe [...] SIGNATURE: Joe Granda MD PATIENT NAME: Susi Borjahip DATE: December 18, 2021 TIME: 12:10 PM * Melissa Olivas PA-C - 12/05/2021 1:10 PM EDT HISTORY AND PHYSICAL EXAMINATION SERVICE DATE: 12/05/2021 SERVICE TIME: 1:12 PM PRIMARY CARE PHYSICIAN: Rosaura Estrada, AQUARIUM SPECIALIST, AQUARIUM SPECIALIST This is a virtual visit using alternative [...] Negative for: dysuria, frequent urination and hematuria. AMMUNITION SPECIALIST: +amenorrhea with IUD Endocrine: Negative for: diabetes [...] medication comments found. ALLERGIES Allergen Reactions Adhes. Shpt-Roxn-Dd* Rash Adhesive Tape-Silic* Rash Augmentin [Amoxicil* Diarrhea [...] or any previous visit (from the past 84314 hour(s)). Assessment TONEY on CPAP Assessment: not [...] body mass index of 60.0-69.9 in adult ([facility]) Assessment: Body mass index is 66.09 kg/m . Dugan Activity Status Index: METS: Climb a flight of stairs or walk up a hill (5.50 METs) DASI Score: 5.5 Patient denies any chest pain or undue shortness of breath with the above physical activity. Clinical Frailty Scale: 3. Well, with treated comorbid disease [id number] Score: Age: <65 Sex: female [id number] Score: 1 ARISCAT Score: Age: <=50 ARISCAT [...] SIGNATURE: Melissa Olivas PA-C PATIENT NAME: Susi Milesenship DATE: December 05, 2021 TIME: 1:10 PM PAGER/CONTACT #: documented in this encounterGrant Hospital06-09-2022 History of Present illness Narrative* Akosua Peraza RD - 12/05/2021 11:45 AM EDT No show for nutrition appointment on 12/05/21. Signed by: Akosua Peraza RD documented in this encounterGrant Hospital05-18-2022 Evaluation note* Encounter Date Diagnosis Assessment [...] sprain elsa e care material was printed pinion-pins Other 05-11-2022 History of Present illness Narrative* Joe Granda MD - 11/06/2021 9:40 AM EDT Assessment NEW BARIATRIC PATIENT PATIENT NAME: Susi Ortiz REASON FOR CONSULT: Morbid Obesity REQUESTING PHYSICIAN: Self DATE of SERVICE: 11/06/2021 TIME of SERVICE: 9:40 AM PCP: Rosaura Estrada, AQUARIUM SPECIALIST, AQUARIUM SPECIALIST CC: Morbid Obesity HPI: Ms. Ortiz is [...] use: Never ALLERGIES: ALLERGIES Allergen Reactions Adhes. Tlzh-Cyzh-Lw* Rash Adhesive Tape-Silic* Rash Augmentin [Amoxicil* Diarrhea [...] which included preparing to see the patient, pecs-ca-pbja patient care, completing clinical documentation, obtaining and/or reviewing separately obtained history, ordering medications, tests, or procedures and care coordination (not separately reported). Joe Granda MD documented in this encounterGrant Hospital05-09-2022 Instructions* Patient Instructions* Karon Monsivais, RD - 11/04/2021 12:44 PM EDT 1. Research the post-op vitamin options (can change depending on what procedure is done) Some examples of vitamins/mineral companies: - Bariatric Fusion: 4 Complete Chewable Multivitamins per day (2 in the AM, 2 in the PM) www.bariatricfusion.com - Medxnote: 1 Bariatric Multivitamin and Calcium Citrate (total of 1200- 1500 mg/day) * take calcium citrate separately from Multivitamin with iron at least 2 hours apart and 4 hours apart from additional calcium www.procarenoQuantum4D.[place] L[employer] - Bariatric Choice: 4 Complete Multivitamins (chewables) [...] Slim Fast Advanced Nutrition OR Light Start Sinclair Breakfast Essentials mixed with 1% or skim milk OR Atkins Protein Shakes (15 gm protein version) OR Glucose Controlled Boost Pre-op goal weight: 380 pounds - per Dr. Granda Protein needs: 77 gm per day Nutrition Monitoring & Evaluation: 1-2 # weight loss per week prior to surgery Criteria: Weight check Need for Follow up: 1 month, [phone] documented in this encounterGrant Hospital05-09-2022 History of Present illness Narrative* Karon Monsivais RD - 11/04/2021 12:43 PM EDT [...] Your Guide to Surgery by next session https://my.[facility].org/-/scassets/files/org/bariatric/guides/bmiguidebook-[email or web address]?la=e n 2. Do not skip meals. 3. [...] AM, 2 in the PM). www.bariatricfusion.com - Medxnote: 1 Bariatric Multivitamin and Calcium Citrate (total of 1200- 1500 mg/day) * take calcium citrate separately from Multivitamin with iron at least 2 hours apart and 4 hours apart from additional calcium www.[employer].[place] [employer] - Bariatric Choice: 4 Complete Multivitamins (chewables) per day Www.bariatricchoice.com - Bariatric Advantage: 2 Multivitamins and 3 Calcium Citrate Chewables per day * take calcium citrate separately from Multivitamin with iron at least 2 hours apart and 4 hours apart from additional calcium. Www.bariatricadvantage.[place] Locksmith For reflux: 1. Try to eat something every 2-3 hours and do not skip meals. Large meals may increase stomach pressure and make your reflux worse. 2. Avoid possible trigger foods as follows: Caffeine (regular coffee, regular tea) Carbonated beverages Mints (peppermint, spearmint) Fried, greasy foods Garlic and onions [place] fruits, juices Alcohol Tomato products Spicy foods [...] in the AM, 2 in the PM) www.bariatricfusion.[place] L[employer] - Procare Health: 1 Bariatric Multivitamin and Calcium Citrate (total of 1200- 1500 mg/day) * take calcium citrate separately from Multivitamin with iron at least 2 hours apart and 4 hours apart from additional calcium www.SearchlesareAuraSense Therapeutics.[place] [employer] - Bariatric Choice: 4 Complete Multivitamins (chewables) per day Www.bariatricchoice.[place] L[employer] - Bariatric Advantage: 2 Multivitamins and 3 Calcium Citrate Chewables per day * take calcium citrate separately from Multivitamin with iron at least 2 hours apart and 4 hours apart from additional calcium Www.bariatricadRazumeage.[place] Locksmith 2. Do not skip meals. 3. Use [...] Slim Fast Advanced Nutrition OR Light Start Sinclair Breakfast Essentials mixed with 1% or skim milk OR Atkins Protein Shakes (15 gm protein version) OR Glucose Controlled Boost Pre-op goal weight: 380 pounds - per Dr. Granda Protein needs: 77 gm per day Nutrition Monitoring & Evaluation: 1-2 # weight loss per week prior to surgery Criteria: Weight check Need for Follow up: 1 month, [phone] Group Appointment Start Time: 11:45 AM Group Appointment End Time: 12:29 PM Time Spent on Consult: 44 minutes - Group Signed by: Karon Monsivais RD documented in this encounterGrant Hospital05-02-2022 Evaluation note* Encounter Date Diagnosis Assessment Notes Treatment Notes Treatment Clinical Notes October, Gastroesophageal ref lux disease, esophagitis presence not specified (ICD-10 - K21.9) pinion-pins Other 04-15-2022 Evaluation note* Encounter Date Diagnosis Assessment Notes Treatment Notes Treatment Clinical Notes Sep, Other d/t progessi vely worsening shortness of breath and hypoxia, patient was recommended to go to ER for higher acuity care [place] [facility] Other 04-07-2022 Evaluation note* Encounter Date Diagnosis [...] ramon lt home care material was printed pinion-pins Other 04-04-2022 History of Present illness Narrative* 09/30/2021 * 9:15AM * SUSI ORTIZ , 36 year is contacted for an (audio-visual, or audio only) Telehealth visit. * Today's visit was provided through telemedicine conferencing: Using [employer] platform. * Consent: * The concept of [...] She went in for evaluation with her MORTGAGE LOAN OFFICER ORIGINATOR in early January 2021, and was subsequently found to have a complex ovarian cyst. She was taken for surgery at [facility] later that month, and reports that [...] in 2019, which was also performed at [facility]. 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 We are sure that you will still have some additional questions and encourage you to reach out to your care provider via [employer] OR your Patient Navigator. Patient Navigators are assigned alphabetically by patient last name. The contact information for each Navigator is listed below. Last names A-E= Malorie - Last names F-L = JoannaMike Last names M-R= AlmaMike Last names S-Z= JesusitaMike Additionally, you may [...] diet, etc) from each provider, please call [phone] and select option #5 to initiate insurance approval. Please note scheduling information It is important to keep track of your scheduled appointments to ensure successful completion of oursurgical program. Any missed appointments can further delay your pre-surgical work-up. [facility] offer an opt-in option for getting text message appointment reminders. Please follow the link below if you would like to opt into this service. [email or web address] As part of your surgical work up, [...] follow up visit or rescheduling, Please call [phone] OR [phone] Any testing that is completed outside of [facility] will need faxed to [phone]. We look forward to working with you on this journey, Jayshree Huffman APRN.CNP [facility] History of Present illness Narrative* Jayshree [...] to severe GERD. Sleeve in 2017 at [facility], in [place]. 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 ALLERGIES Allergen Reactions Adhes. Vrsr-Gpgi-Ey* Rash Adhesive Tape-Silic* Rash Augmentin [Amoxicil* Diarrhea [...] Non labored Neuro: no obvious deficits Impression Ssui Ortiz is a 36 year old female [...] which included preparing to see the patient, blym-bn-[id number] patient care, completing clinical documentation, obtaining and/or reviewing separately obtained history, counseling and educating the patient/family/caregiver, ordering medications, keli ts, or procedures and communicating with other HCPs (not separately reported). Medical Decision Making Jayshree Huffman APRN.KATTY documented [facility] History and physical note * Humza [...] a sleeve gastrectomy done in 2017 at [facility]. Her preop weight was 380 lbs. Max [...] Minimally Invasive General Surgery [facility] N[facility]ative - Reported* An interactive audio [...] Other intestinal malabsorption [facility] Diagnosis Gastroesophageal reflux disease, unspecified whether esophagitis present- Primary Class 3 severe obesity with serious comorbidity and body mass index (BMI) of 60.0 to 69.9 in adult, unspecified obesity type (HCC) TONEY on CPAP Obstructive sleep apnea (adult) (pediatric) S/P laparoscopic sleeve gastrectomy Bariatric surgery status Postoperative malabsorption Other and unspecified postsurgical nonabsorption documented in this encounter [facility] note* Diagnosis Dysphagia, unspecified type- Primary Gastroesophageal reflux disease, unspecified whether esophagitis present History of sleeve gastrectomy [facility] [place] [facility] Diagnosis History of sleeve gastrectomy- Primary BMI 70 and over, adult (HCC) Body Mass Index 70 and over, adult Dietary counseling and surveillance Dietary surveillance and counseling documented in this encounter [facility] note* Diagnosis History of sleeve gastrectomy- Primary Gastric fistula Fistula of stomach or duodenum documented in this encounter [facility] note* Diagnosis NO SHOW- Primary documented in this encounter [facility] note* Diagnosis TONEY on CPAP Obstructive sleep apnea (adult) (pediatric) Gastroesophageal reflux disease, unspecified whether esophagitis present S/P laparoscopic sleeve gastrectomy Bariatric surgery status documented in this encounter [facility] noteNo [facility]Nos[facility] Other Evaluation note* Diagnosis Gastroesophageal reflux disease, unspecified whether esophagitis present- Primary BMI 70 and over, adult (HCC) Body Mass Index 70 and over, adult History of sleeve gastrectomy Dietary counseling and surveillance Dietary surveillance and counseling documented in this encounter [facility] note* Diagnosis Epigastric pain- Primary Abdominal pain, epigastric Gastroesophageal reflux disease without esophagitis Esophageal reflux History of sleeve gastrectomy documented in this encounter [facility] note* Diagnosis History of sleeve gastrectomy Gastric fistula Fistula of stomach or duodenum documented in this encounter [facility] note* Diagnosis NO SHOW- Primary documented in this encounter [facility] note* Diagnosis History of sleeve gastrectomy- Primary documented in this encounter [facility] noteNo assessment information [facility] Work Phone: Evaluation note* Diagnosis Gastroesophageal reflux disease, unspecified whether esophagitis present- Primary BMI 70 and over, adult (HCC) Body Mass Index 70 and over, adult documented in this encounter [facility] note* Diagnosis Morbid obesity with body mass index of 60.0-69.9 in adult (HCC)- Primary Morbid obesity Gastroesophageal reflux disease, unspecified whether esophagitis present BMI 70 and over, adult ([facility]) Body Mass Index 70 and over, adult Gastroesophageal reflux disease, unspecified whether esophagitis present documented in this encounter [facility] note* Diagnosis Morbid obesity with body mass index of 60.0-69.9 in adult ([facility])- Primary Morbid obesity documented in this encounter [facility] note* Diagnosis Weight disorder- Primary Other symptoms concerning nutrition, metabolism, and development BMI 70 and over, adult ([facility]) Body Mass Index 70 and over, adult Preop testing Preoperative examination, unspecified Abnormal weight gain Snoring Other dyspnea and respiratory abnormality Sleep-disordered breathing Other sleep disturbances Fatigue, unspecified type S/P bariatric surgery Bariatric surgery status documented in this encounter [facility] note* Diagnosis Morbid obesity with BMI of 70 and over, adult ([facility])- Primary Morbid obesity documented in this encounter [facility] note* Diagnosis S/P gastric sleeve procedure- Primary Weight gain following gastric bypass surgery BMI 60.0-69.9, adult ([facility]) Body Mass Index 60.0-69.9, adult Dietary counseling and surveillance Dietary surveillance and counseling documented in this encounter [facility] note* Diagnosis Weight gain following gastric bypass surgery- Primary Abnormal weight gain Preop testing Preoperative examination, unspecified Snoring Other dyspnea and respiratory abnormality Sleep-disordered breathing Other sleep disturbances Fatigue, unspecified type S/P bariatric surgery Bariatric surgery status S/P gastric sleeve procedure Dietary counseling and surveillance Dietary surveillance and counseling BMI 60.0-69.9, adult ([facility]) Body Mass Index 60.0-69.9, adult documented in this encounter [facility] note* Diagnosis Pre-op evaluation- Primary Preoperative examination, unspecified Morbid obesity with body mass index of 60.0-69.9 in adult ([facility]) Morbid obesity Gastroesophageal reflux disease, unspecified whether esophagitis present TONEY on CPAP Obstructive sleep apnea (adult) (pediatric) Bipolar affective disorder, remission status unspecified ([facility]) Thrombocytosis Essential thrombocythemia Migraine without status migrainosus, not intractable, unspecified migraine type documented in this encounter [facility] note* Diagnosis Patient left without being seen- Primary Surgical or other procedure not carried out because of patient's decision documented in this encounter [facility] note* Diagnosis S/P gastrointestinal surgery, follow-up exam- Primary Follow-up examination, following other surgery Status post biliopancreatic diversion with duodenal switch Post-operative nausea and vomiting Nausea with vomiting documented in this encounter [facility] note* Diagnosis Impaired intestinal absorption- Primary Unspecified intestinal malabsorption S/P biliopancreatic diversion with duodenal switch Class 3 severe obesity with body mass index (BMI) of 60.0 to 69.9 in adult, unspecified obesity type, unspecified whether serious comorbidity present (HCC) Dietary counseling and surveillance Dietary surveillance and counseling documented in this encounter [facility] note* Diagnosis S/P bariatric surgery- Primary Bariatric surgery status Body mass index (BMI) 60.0-69.9, adult ([facility]) Dietary counseling and surveillance Dietary surveillance and counseling documented in this encounter [facility] note* Diagnosis S/P gastrointestinal surgery, follow-up exam- Primary Follow-up examination, following other surgery S/P biliopancreatic diversion with duodenal switch Open abdominal incision with drainage, subsequent encounter Impaired intestinal absorption Unspecified intestinal malabsorption Class 3 severe obesity with body mass index (BMI) of 60.0 to 69.9 in adult, unspecified obesity type, unspecified whether serious comorbidity present (HCC) documented in this encounter [facility] note* Diagnosis S/P bariatric surgery- Primary Bariatric surgery status Impaired intestinal absorption Unspecified intestinal malabsorption Body mass index (BMI) 60.0-69.9, adult ([facility]) Dietary counseling and surveillance Dietary surveillance and counseling documented in this encounter [facility] note* Diagnosis Encounter for surgical aftercare following [...] Bariatric surgery status documented in this encounter [facility] note* Diagnosis BMI 60.0-69.9, adult (HCC)- Primary Body Mass Index 60.0-69.9, adult S/P bariatric surgery Bariatric surgery status documented in this encounter [facility] note* Diagnosis Low back pain, unspecified back pain laterality, unspecified chronicity, unspecified whether sciatica present- Primary [facility] Diagnosis Low back pain, unspecified back pain laterality, unspecified chronicity, unspecified whether sciatica present- Primary documented [facility]* Diagnosis Low back pain, unspecified back pain laterality, unspecified chronicity, unspecified whether sciatica present- Primary documented in this encounter [facility]* Diagnosis Right knee pain, unspecified chronicity- Primary Arthritis of right knee documented in this encounter [facility]* Diagnosis Pre-op evaluation- Primary Preoperative examination, unspecified Morbid obesity with body mass index of 60.0-69.9 in adult ([facility]) Morbid obesity Gastroesophageal reflux disease, unspecified whether esophagitis present TONEY on CPAP Obstructive sleep apnea (adult) (pediatric) Bipolar affective disorder, remission status unspecified ([facility]) Thrombocytosis Essential thrombocythemia Migraine without status migrainosus, not intractable, unspecified migraine type Pre-op evaluation- Primary Preoperative examination, unspecified Morbid obesity ([facility]) Morbid obesity TONEY on CPAP Obstructive sleep apnea (adult) (pediatric) Thrombocytosis Essential thrombocythemia Bipolar affective disorder, remission status unspecified ([facility]) Gastroesophageal reflux disease, unspecified whether esophagitis present Morbid obesity with body mass index of 60.0-69.9 in adult ([facility]) Morbid obesity Migraine without status migrainosus, not intractable, unspecified migraine type S/P biliopancreatic diversion with duodenal switch- Primary BMI 60.0-69.9, adult ([facility]) Body Mass Index 60.0-69.9, adult Prediabetes Other abnormal glucose S/P bariatric surgery Bariatric surgery status [facility] Diagnosis Low back pain, unspecified back pain laterality, unspecified chronicity, unspecified whether sciatica present- Primary Arthritis of right knee- Primary documented in this encounter [facility]* Diagnosis Arthritis of right knee- Primary Right knee pain, unspecified chronicity Internal derangement of right knee Contusion of right knee, initial encounter Left knee pain, unspecified chronicity Arthritis of left knee documented in this encounter [facility]* Diagnosis Pre-op evaluation- Primary Preoperative examination, unspecified Morbid obesity with body mass index of 60.0-69.9 in adult ([facility]) Morbid obesity Gastroesophageal reflux disease, unspecified whether esophagitis present TONEY on CPAP Obstructive sleep apnea (adult) (pediatric) Bipolar affective disorder, remission status unspecified (HCC) Thrombocytosis Essential thrombocythemia Migraine without status migrainosus, not intractable, unspecified migraine type Pre-op evaluation- Primary Preoperative examination, unspecified Morbid obesity (HCC) Morbid obesity TONEY on CPAP Obstructive sleep apnea (adult) (pediatric) Thrombocytosis Essential thrombocythemia Bipolar affective disorder, remission status unspecified (HCC) Gastroesophageal reflux disease, unspecified whether esophagitis present Morbid obesity with body mass index of 60.0-69.9 in adult (HCC) Morbid obesity Migraine without status migrainosus, not intractable, unspecified migraine type Impaired intestinal absorption- Primary Unspecified intestinal malabsorption S/P biliopancreatic diversion with duodenal switch Class 3 severe obesity with body mass index (BMI) of 60.0 to 69.9 in adult, unspecified obesity type, unspecified whether serious comorbidity present ([facility]) Dietary counseling and surveillance Dietary surveillance and counseling documented in this encounter [facility] general Narrative - Reported* Type Description Date [...] X'S 2 Hospitalization History SEE AB[facility] - [facility]* Type Description Date [...] X'S 2 Hospitalization History SEE ABOVE SURGERY pinion-pins Other Reason for referral (narrative)* Diagnostic Procedure [...] XR UPPER GI SINGLE CONTRAST RADIOLOGIC EXAM [facility] GI TRC SINGLE CONTRAST STUDY Jayshree Huffman APRN.CNP [address] [id number] Xr Imaging Referral ID Status Reason Start Date Expiration Date Visits Requested Visits Authorized [id number] Pending Review Auto-Generat ed Referral 09/23/2021 10/23/2022 [...] ECG W/LEAST 12 LDS W/I&R Jayshree Huffman APRN.AQUARIUM SPECIALIST [address] [place] [address] [facility] [place] [address] Referral ID Status Reason Start Date Expiration Date Visits Requested Visits Authorized [id number] Pending Review Auto-Generat ed Referral 09/23/2021 09/23/2022 1 1 [facility] for referral (narrative)* Outpatient Procedure (Routine) - Closed Specialty Diagnoses / Procedures Referred By Tiarra somers Referred To Contact [facility] Diagnoses TONEY on CPAP Gastroesophageal reflux disease, unspecified whether esophagitis present S/P laparoscopic sleeve gastrectomy Procedures EGD DIAGNOSTIC ESOPHAGOGASTRODUODENOSCO PY TRANSORAL DIAGNOSTIC Jayshree Huffman APRN.CNP [address] [place] [address] [facility] [place] [facility] [place] [id number] Referral ID Status Reason Start Date Expiration Date V isits Requested Visits Authorized [id number] Closed Auto-Generate d Referral 09/24/2021 09/24/2022 1 1 [facility] for referral (narrative)* Outpatient Procedure (Routine) - Pending Review Specialty Diagnoses / Procedures Referred By Contac t Referred To [facility] Diagnoses Abnormal weight gain Preop testing Snoring Sleep-disordered breathing Fatigue, unspecified type S/P bariatric surgery BMI 70 and over, adult (HCC) Procedures ECG COMPLETE ECG ROUTINE ECG W/LEAST 12 LDS W/I&R Amina Nieto MD [address] [place] [address] [facility] [place] [id number] Referral ID Status Reason Start Date Expiration Date Visits Requested Visits Authorized [id number] Pending Review Auto-Generat ed Referral 06/04/2022 05/31/2023 1 1 * Consult, Test, Treat (Routine) - Authorized Specialty Diagnoses / Procedures Referred By Contac t Referred To Contact Diagnoses Abnormal weight gain Preop testing Snoring Sleep-disordered breathing Fatigue, unspecified type S/P bariatric surgery BMI 70 and over, adult (HCC) Procedures CONSULT TO SLEEP MEDICINE - ADULT OFFICE/OUTPATIENT [facility] 60-74 MINUTES Amina Nieto MD [address] [place] [address] Referral ID Status Reason Start Date Expiration Date Visits Requested Visits Authorized [id number] Authorized PCP Requested Referral 06/04/2022 05/31/2023 1 1 [facility] for referral (narrative)* Outpatient Procedure (Routine) - [...] ECG W/LEAST 12 LDS W/I&R Shruti Alvarado TELEPHONE ENGINEER.AQUARIUM SPECIALIST [address] [place] [address] [facility] [place] [address] [place] [address] Referral ID Status Reason Start Date Expiration Date Visits Requested Visits Authorized [id number] Pending Review Auto-Generat ed Referral 03/10/2023 03/09/2024 1 1 [facility] for visit Narrative* Outpatient Procedure (Routine) - Closed Specialty Diagnoses / Procedures Referred By Tiarra somers Referred To Contact [facility] Diagnoses TONEY on CPAP Gastroesophageal reflux disease, unspecified whether esophagitis present S/P laparoscopic sleeve gastrectomy Procedures EGD DIAGNOSTIC ESOPHAGOGASTRODUODENOSCO PY TRANSORAL DIAGNOSTIC Jayshree Huffman APRN.AQUARIUM SPECIALIST [address] [place] [address] [facility] [place] [address] [place] [address] Referral ID Status Reason Start Date Expiration Date V isits Requested Visits Authorized [id number] Closed Auto-Generate d Referral 09/24/2021 09/24/2022 1 1 [facility] for visit Narrative* Rehabilitation - Outpatient (Routine) - Authorized Specialty Diagnoses / Procedures Referred By Tiarra somers Referred To Contact Physical Therapy Diagnoses Low back pain, unspecified Procedures AK PHYSICAL THERAPY EVALUATION LOW COMPLEX 20 MINS Zohra Roberts MD [address] [place] [address] Phone: tel: fax: [facility] [address] [place] [address] Phone: tel: fax: Referral ID Status Reason Start Date Expiration Date V isits Requested Visits Authorized [id number] Authorized 02/23/2024 08/21/2024 30 30 [facility] Summary Purpose Family History No Family History [...] FoundDocuments on File Type Date Recorded Patient Aqua Ammonia Operator Expl anation ACP-Advance Directive ACP-Power of Advertising Traffic Manager Latest Code Status on File Code Status Date Activated Date Inactivated Comments Full Code 01/16/2017 11:20 PM 01/21/2017 5:23 PM Documents on File Type Date Recorded Patient Aqua Ammonia Operator Expl anation ACP-Advance Directive ACP-Power of Advertising Traffic Manager Latest Code Status on File Code Status Date Activated Date Inactivated Comments Full Code 01/16/2017 11:20 PM 01/21/2017 5:23 PM Documents on File Type Date Recorded Patient Aqua Ammonia Operator Expl anation Advance Directive(s) 10/04/2015 12:43 PM Advance Directive(s) 09/25/2015 12:29 PM Documents on File Type Date Recorded Patient Aqua Ammonia Operator Expl anation Advance Directive(s) 10/04/2015 12:43 PM Advance Directive(s) 09/25/2015 12:29 PM Advance Directive Response Recorded Date/ Time Advance Directives No October 07, 2 019 3:58pm Reason for Referral Status Reason Specialty Diagnoses / Procedures Referre d By Contact Referred To Contact [facility] Diagnoses S/P laparoscopic sleeve gastrectomy Procedures FL UGI FL UGI Shaylee Miles, DO [address] [place] [address] Specialty Diagnoses / Procedures Referred By Contraymond t Referred To Contact Diagnoses S/P laparoscopic sleeve gastrectomy Gastroesophageal reflux disease, unspecified whether esophagitis present Procedures XR FLUORO UPPER GI, WATER SOLUBLE AND/OR BARIUM CONTRAST Humza Walter MD [address] [place] [address] Referral ID Status Reason Start Date Expiration Date V isits Requested Visits Authorized [id number] Auth Not Needed 05/17/2021 06/11/2022 1 1 Specialty Diagnoses / Procedures Referred By Fabianaac t Referred To Contact Diagnoses S/P laparoscopic sleeve gastrectomy TONEY on CPAP Morbid obesity with body mass index of 50 or higher Gastroesophageal reflux disease, unspecified whether esophagitis present Other intestinal malabsorption Procedures ECG Humza Walter MD [address] [place] [id number] Referral ID Status Reason Start Date Expiration Date V isits Requested Visits Authorized [id number] New Request 05/17/2021 06/11/2022 1 1 Specialty Diagnoses / Procedures Referred By Fabianaac t Referred To Contact Psychology Diagnoses S/P laparoscopic sleeve gastrectomy TONEY on CPAP Morbid obesity with body mass index of 50 or higher Gastroesophageal reflux disease, unspecified whether esophagitis present Other intestinal malabsorption Humza Walter MD [address] [place] [address] Referral ID Status Reason Start Date Expiration Date V isits Requested Visits Authorized [id number] New Request 05/17/2021 06/11/2022 1 1 Specialty Diagnoses / Procedures Referred By Fabianaac t Referred To Contact Nutrition and Dietetics Diagnoses S/P laparoscopic sleeve gastrectomy TONEY on CPAP Morbid obesity with body mass index of 50 or higher Gastroesophageal reflux disease, unspecified whether esophagitis present Other intestinal malabsorption Humza Walter MD [address] [place] [address] Referral ID Status Reason Start Date Expiration Date V isits Requested Visits Authorized [id number] New Request 05/17/2021 06/11/2022 1 1 Specialty Diagnoses / Procedures Referred By Contac t Referred To Contact CT IMAGING Diagnoses History of sleeve gastrectomy Gastric fistula Procedures CT ABD/PEL W IVCON CT ABD & PEL[place] W/[place] [address] [place] [address] Ct Imaging Referral ID Status Reason Start Date Expiration Date Visits Requested Visits Authorized [id number] Pending Review Auto-Generat ed Referral 11/04/2021 12/04/2022 1 1 Specialty Diagnoses / Procedures Referred By Contac t Referred To Contact XR IMAGING Diagnoses History of sleeve gastrectomy Gastric fistula Procedures XR UPPER GI SINGLE CONTRAST RADIOLOGIC EXAM UPR GI TR[place] [address] [place] [address] Xr Imaging Referral ID Status Reason Start Date Expiration Date Visits Requested Visits Authorized [id number] Pending Review Auto-Generat ed Referral 11/04/2021 12/04/2022 1 1 Referral ID Status Reason Start Date Expiration Date V isits Requested Visits Authorized [id number] Closed Auto-Generate d Referral 01/05/2022 06/28/2022 2 2 Specialty Diagnoses / [facility] To Contact Diagnoses BMI 70 and over, adult (HCC) Gastroesophageal reflux disease, unspecified whether esophagitis present Procedures IN PERSON CONSULT TO PACC Jayshree Huffman APRN.AQUARIUM SPECIALIST [address] [id number] Referral ID Status Reason Start Date Expiration Date Visits Requested Visits Authorized [id number] Ref Not Required PCP Requested Referral 07/17/2022 1 1 Specialty Diagnoses / [facility] Referred To Contact Diagnoses BMI 60.0-69.9, adult (HCC) S/P bariatric surgery S/P biliopancreatic diversion with duodenal switch Prediabetes Amina Nieto MD [address] [place] [address] Referral ID Status Reason Start Date Expiration Date V isits Requested Visits Authorized [id number] Pending Review 04/19/2024 06/18/2024 1 1 Discharge Instructions * Instructions* Shaylee [...] questions, PLEASE call your doctor or the [facility] center at documented in [...] section and content) DATE CREATED AUTHOR 12/23/2017 [facility] DATE CREATED AUTHOR AUTHOR'S ORGANIZ ATION 03/29/2020 [facility] DATE CREATED AUTHOR AUTHOR'S ORGANIZ ATION 04/07/2020 [facility] DATE CREATED AUTHOR AUTHOR'S ORGANIZ ATION 04/11/2020 [facility] DATE CREATED AUTHOR AUTHOR'S ORGANIZ ATION 10/01/2021 [employer] DATE CREATED AUTHOR AUTHOR'S ORGANIZ ATION 12/11/2021 [facility] DATE CREATED AUTHOR AUTHOR'S ORGANIZ ATION 02/19/2022 [facility] DATE CREATED AUTHOR AUTHOR'S ORGANIZ ATION 11/07/2022 [facility] DATE CREATED AUTHOR AUTHOR'S ORGANIZ ATION 12/15/2022 [facility] DATE CREATED AUTHOR AUTHOR'S ORGANIZ ATION 08/18/2023 [facility] DATE CREATED AUTHOR AUTHOR'S ORGANIZ ATION 04/13/2024 [facility] DATE CREATED AUTHOR AUTHOR'S ORGANIZ ATION 04/29/2024 [facility] DATE CREATED AUTHOR AUTHOR'S ORGANIZ ATION 05/05/2024 [facility] DATE CREATED AUTHOR AUTHOR'S ORGANIZ ATION 05/15/2024 [facility] Reason for Visit (unrecogniz ed section and content) Status Reason Specialty Diagnoses / Procedures Re ferred By Contact Referred To Contact Diagnoses Obesity OBESITY Procedures AK ESOPHAGOGASTRODUODENOSCOPY TRANSORAL DIAGNOSTIC EGD ESOPHAGOGASTRODUODENOSCOPY Kylah Vargas, [address] [facility] [address] [place] [id number] [facility] Reason Comments Consult Est Care/Revision/ S leeve 05/2017 Reason Comments Obesity GERD Reason Onset Date Comments Reassessment 11/04/2021 Patient Education 11/04/2021 Reason Comments New Patient Reason Comments No Show Reason Onset Date Comments Reassessment 01/17/2022 Patient Education 01/17/2022 Specialty Diagnoses / Procedures Referred By Contac t Referred To Contact Nutrition / GENERAL SURGERY Diagnoses Follow-up exam OrangePurple/0 diet/[place]/05/2017 LSG-complications gerd Procedures PHYS/QHP TELEPHONE EVALUATION 5-10 MIN VIDEO GROUP (ZOOM) MD Yodit Jason Erin, RD [address] [place] [address] Referral ID Status Reason Start Date Expiration Date Visits Re quested Visits Authorized [id number] Closed 01/17/2022 06/28/2022 1 1 Reason Comments Obesity Specialty Diagnoses / Procedures Referred By Contac t Referred To Contact General Surgery / GENERAL SURGERY Diagnoses Follow-up exam imaging follow up Procedures PHYS/QHP TELEPHONE EVALUATION 5-10 [place] [address] [place] [address] [place] [address] [place] [address] Referral ID Status Reason Start Date Expiration Date Visits Re quested Visits Authorized [id number] Closed 01/20/2022 06/28/2022 1 1 Specialty Diagnoses / Procedures Referred By Contac t Referred To Contact CT IMAGING Diagnoses History of sleeve gastrectomy Gastric fistula Procedures CT ABD/PEL W IVCON CT ABD & P[place] [id number] Imaging Referral ID Status Reason Start Date Expiration Date V isits Requested Visits Authorized [id number] Closed Auto-Generate d Referral 01/05/2022 06/28/2022 2 [...] CONSULT TO SLEEP MEDICINE - ADULT OFFICE/OUTPATIENT [facility] 60-74 MINUTES Amina Nieto MD [address] [id number] Referral ID Status Reason Start Date Expiration Date V isits Requested Visits Authorized [id number] Closed PCP Requested Referral 06/04/2022 05/31/2023 1 1 Reason Comments Anesthesia Consult Specialty Diagnoses / Procedures Referred By Contac t Referred To Contact ANESTHESIOLOGY Diagnoses Preop examination Procedures PREOP ANES OR PROXY B/4 SURG Joe Granda MD [address] [place] [address] [address] [place] [address] Referral ID Status Reason Start Date Expiration Date V isits Requested Visits Authorized [id number] Authorized 06/29/2022 06/28/2023 99 99 Reason Comments Patient Left Without Being Seen Specialty Diagnoses / Procedures Referred By Contac t Referred To Contact ANESTHESIOLOGY Diagnoses Preop examination Procedures PREOP ANES OR PROXY B/4 SURG Joe Granda MD [address] [place] [address] Pre Anes [address] [place] [address] Reason Comments Post Op Reason Comments Post Op 7-10 day gastrectomy Reason Comments Post Op S/p BPD/DS 08/04/23 Reason Comments Follow Up Weight Loss Surgery Reason Comments Refill Request Specialty Diagnoses / Procedures Referred By Contac t Referred To Contact Physical Therapy Diagnoses Low back pain, unspecified Procedures AK PHYSICAL THERAPY EVALUATION LOW COMPLEX 20 MINS Zohra Roberts MD [address] [place] [address] [address] [place] [address] Referral ID Status Reason Start Date Expiration Date V isits Requested Visits Authorized [id number] Authorized 02/23/2024 08/21/2024 30 30 Reason Onset Date Comments re: Next 2 PT's 04/12/2024 She called karlene read her step-father had this morning and she is traveling out of town; she cx her PT today and on 04/14/24. I reminded and she confirmed PT on 04/19/24. 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 She said she will be here next week for PT. Care Teams (unrecognized sec tion and content) Blood Typer Relationship Specialty Start Date End Date Elizabet Simental DO [address] [place] [address] PCP - General Family Medicine 03/21/21 Blood Typer Relationship Specialty Start Date End Date Rosaura Estrada, AQUARIUM SPECIALIST [address] [place] [address] PCP - General Family Practice 10/01/11 Blood Typer Relationship Specialty Start Date End Date Rosaura Estrada, AQUARIUM SPECIALIST [address] [place] [address] PCP - General Family Practice 10/01/11 Blood Typer Relationship Specialty Start Date End Date Rosaura Estrada, AQUARIUM SPECIALIST [address] [place] [address] PCP - General Family Practice 10/01/11 Blood Typer Relationship Specialty Start Date End Date Rosaura Estrada, AQUARIUM SPECIALIST [address] [place] [address] PCP - General Family Practice 10/01/11 Blood Typer Relationship Specialty Start Date End Date Rosaura Estrada, AQUARIUM SPECIALIST [address] [place] [address] PCP - General Family Practice 10/01/11 Blood Typer Relationship Specialty Start Date End Date Rosaura Estrada, AQUARIUM SPECIALIST [address] [place] [address] PCP - General Family Practice 10/01/11 Blood Typer Relationship Specialty Start Date End Date Rosaura Estrada, AQUARIUM SPECIALIST [address] [place] [address] PCP - General Family Practice 10/01/11 Blood Typer Relationship Specialty Start Date End Date Rosaura Estrada, AQUARIUM SPECIALIST [address] [place] [address] PCP - General Family Practice 10/01/11 Blood Typer Relationship Specialty Start Date End Date Rosaura Estrada, AQUARIUM SPECIALIST [address] [place] [address] PCP - General Family Practice 10/01/11 Blood Typer Relationship Specialty Start Date End Date Rosaura Estrada, AQUARIUM SPECIALIST [address] [place] [address] PCP - General Family Practice 10/01/11 Blood Typer Relationship Specialty Start Date End Date [facility] AQUARIUM SPECIALIST [address] [place] [address] PCP - General Family Practice 10/01/11 Blood Typer Relationship Specialty Start Date End Date Rosaura Estrada, AQUARIUM SPECIALIST [address] [place] [address] PCP - General Family Medicine 10/01/11 Team Status: Inactive Member Role Status Dates NON STAFF Primary Care Provider Active ROBERT Monteiro Attending Provider Active Team Status: Active Member Role Status Dates NON STAFF Primary Care Provider Active Blood Typer Relationship Specialty Start Date End Date Ju, Elizabet [address] [place] [address] PCP - General Family Medicine 04/16/22 Blood Typer Relationship Specialty Start Date End Date Rumschlaroro, Elizabet [address] [place] [address] PCP - General Family Medicine 04/16/22 Blood Typer Relationship Specialty Start Date End Date Rumschlag, Elizabet [address] [place] [address] PCP - General Family Medicine 04/16/22 Blood Typer Relationship Specialty Start Date End Date Rumschlag, Elizabet [address] [place] [address] PCP - General Family Medicine 04/16/22 Blood Typer Relationship Specialty Start Date End Date Rumschlag, Elizabet [address] [place] [address] PCP - General Family Medicine 04/16/22 Blood Typer Relationship Specialty Start Date End Date Rumschlag, Elizabet [address] [place] [address] PCP - General Family Medicine 04/16/22 Blood Typer Relationship Specialty Start Date End Date Rumschlag, Elizabet [address] [place] [address] PCP - General Family Medicine 04/16/22 Blood Typer Relationship Specialty Start Date End Date Rumschlag, Elizabet [address] [place] [address] PCP - General Family Medicine 04/16/22 Blood Typer Relationship Specialty Start Date End Date Rumschlag, Elizabet [address] [place] [address] PCP - General Family Medicine 04/16/22 Blood Typer Relationship Specialty Start Date End Date Rumschlaroro Elizabet [address] [place] [address] PCP - General Family Medicine 04/16/22 Blood Typer Relationship Specialty Start Date End Date Rumschlag, Elizabet [address] [place] [address] PCP - General Family Medicine 04/16/22 Blood Typer Relationship Specialty Start Date End Date Rumschlag, Elizabet [address] [place] [address] PCP - General Family Medicine 04/16/22 Blood Typer Relationship Specialty Start Date End Date Rumschlag, Elizabet [address] [place] [address] PCP - General Family Medicine 04/16/22 Blood Typer Relationship Specialty Start Date End Date Rumschlag, Elizabet, DO [address] [place] [address] PCP - General Family Medicine 04/16/22 Blood Typer Relationship Specialty Start Date End Date Rumschlag, Elizabet, DO [address] [place] [address] PCP - General Family Medicine 04/16/22 Blood Typer Relationship Specialty Start Date End Date Rumschlag, Elizabet, DO [address] [place] [address] PCP - General Family Medicine 04/16/22 Blood Typer Relationship Specialty Start Date End Date Rumschlag, Elizabet, DO [address] [place] [address] PCP - General Family Medicine 04/16/22 Blood Typer Relationship Specialty Start Date End Date Rumschlag, Elizabet, DO [address] [place] [address] PCP - General Family Medicine 04/16/22 Blood Typer Relationship Specialty Start Date End Date Rumschlag, Elizabet, DO [address] [place] [address] PCP - General Family Medicine 04/16/22 Blood Typer Relationship Specialty Start Date End Date Rumschlag, Elizabet, DO [address] [place] [address] PCP - General Family Medicine 04/16/22 Blood Typer Relationship Specialty Start Date End Date Rumschlag, Elizabet, DO [address] [place] [address] PCP - General Family Medicine 04/16/22 Blood Typer Relationship Specialty Start Date End Date Rumschlag, Elizabet, DO [address] [place] [address] PCP - General Family Medicine 04/16/22 Blood Typer Relationship Specialty Start Date End Date Rumschlag, Elizabet, DO [address] [place] [address] PCP - General Family Medicine 04/16/22 Blood Typer Relationship Specialty Start Date End Date Rumschlag, Elizabet, DO [address] [place] [address] PCP - General Family Medicine 09/16/23 Shaylee Kendall PCP - [facility] Lesvia [facility] 12/28/23 Blood Typer Relationship Specialty Start Date End Date Rumschlag, Elizabet, DO [address] [place] [address] PCP - General Family Medicine 09/16/23 Shaylee Kendall PCP - [facility] Mcneal [employer] 12/28/23 Blood Typer Relationship Specialty Start Date End Date Rumschlag, Elizabet, DO [address] [place] [address] PCP - General Family Medicine 09/16/23 Shaylee Kendall PCP - [facility] Mcneal DIG[employer] ADVISOR 12/28/23 Blood Typer Relationship Specialty Start Date End Date Rumschlag, Elizabet, DO [address] [place] [address] PCP - General Family Medicine 09/16/23 Kromer, Shaylee PCP - [facility] Mcneal [facility] 12/28/23 Blood Typer Relationship Specialty Start Date End Date Rumschlag, Elizabet, DO [address] [place] [address] PCP - General Family Medicine 09/16/23 Jermaineomer, Shaylee PCP - [facility] Mcneal [facility] 12/28/23 Blood Typer Relationship Specialty Start Date End Date Rumschlag, Elizabet, DO [address] [place] [address] PCP - General Family Medicine 09/16/23 Kromer, Shaylee PCP - [facility] Mcneal [facility] 12/28/23 Blood Typer Relationship Specialty Start Date End Date Rumschlag, Elizabet, DO [address] [place] [address] PCP - General Family Medicine 09/16/23 Jermaineomer, Shaylee PCP - [facility] Mcneal [facility] 12/28/23 Blood Typer Relationship Specialty Start Date End Date Rumschlag, Elizabet, DO [address] [place] [address] PCP - General Family Medicine 09/16/23 Kromer, Shaylee PCP - [facility] Mcneal [facility] 12/28/23 Blood Typer Relationship Specialty Start Date End Date Rumschlag, Elizabet, DO [address] [place] [address] PCP - General Family Medicine 09/16/23 Shaylee Kendall PCP - NOMKaley Lakhani [facility] 12/28/23 Blood Typer Relationship Specialty Start Date End Date Rumschlag, Elizabet, DO [address] [place] [address] PCP - General Family Medicine 04/16/22 Blood Typer Relationship Specialty Start Date End Date Rumschlag, Elizabet, DO [address] [place] [address] PCP - General Family Medicine 09/16/23 Jermaineronald Shaylee [facility] 12/28/23 Blood Typer Relationship Specialty Start Date End Date Rumschlag, Elizabet, DO [address] [place] [address] PCP - General Family Medicine 09/16/23 Enoch Shaylee PCP - [facility] 12/28/23 Blood Typer Relationship Specialty Start Date End Date Rumschlag, Elizabet, DO [address] [place] [address] PCP - General Family Medicine 04/16/22 Source Comments (unrecognize d section and content) In the event this informatio n is protected by the Federal Confidentiality of Alcohol and Drug Abuse Patient Records regulations: The Federal rules restrict any use of the information to criminally investigate or prosecute any alcohol or drug abuse patient.[facility] HospitalIn the event this information is protected by the Federal Confidentiality of Alcohol and Drug Abuse Patient Records regulations: The Federal rules restrict any use of the information to criminally investigate or prosecute any alcohol or drug abuse patient.[facility] HospitalIn the event this information is protected by the Federal Confidentiality of Alcohol and Drug Abuse Patient Records regulations: The Federal rules restrict any use of the information to criminally investigate or prosecute any alcohol or drug abuse patient.[facility] HospitalIn the event this information is protected by the Federal Confidentiality of Alcohol and Drug Abuse Patient Records regulations: The Federal rules restrict any use of the information to criminally investigate or prosecute any alcohol or drug abuse patient.[facility] HospitalIn the event this information is protected by the Federal Confidentiality of Alcohol and Drug Abuse Patient Records regulations: The Federal rules restrict any use of the information to criminally investigate or prosecute any alcohol or drug abuse patient.[facility] HospitalIn the event this information is protected by the Federal Confidentiality of Alcohol and Drug Abuse Patient Records regulations: The Federal rules restrict any use of the information to criminally investigate or prosecute any alcohol or drug abuse patient.[facility] HospitalIn the event this information is protected by the Federal Confidentiality of Alcohol and Drug Abuse Patient Records regulations: The Federal rules restrict any use of the information to criminally investigate or prosecute any alcohol or drug abuse patient.[facility] HospitalIn the event this information is protected by the Federal Confidentiality of Alcohol and Drug Abuse Patient Records regulations: The Federal rules restrict any use of the information to criminally investigate or prosecute any alcohol or drug abuse patient.[facility] HospitalIn the event this information is protected by the Federal Confidentiality of Alcohol and Drug Abuse Patient Records regulations: The Federal rules restrict any use of the information to criminally investigate or prosecute any alcohol or drug abuse patient.[facility] HospitalIn the event this information is protected by the Federal Confidentiality of Alcohol and Drug Abuse Patient Records regulations: The Federal rules restrict any use of the information to criminally investigate or prosecute any alcohol or drug abuse patient.[facility] HospitalIn the event this information is protected by the Federal Confidentiality of Alcohol and Drug Abuse Patient Records regulations: The Federal rules restrict any use of the information to criminally investigate or prosecute any alcohol or drug abuse patient.[facility] HospitalIn the event this information is protected by the Federal Confidentiality of Alcohol and Drug Abuse Patient Records regulations: The Federal rules restrict any use of the information to criminally investigate or prosecute any alcohol or drug abuse patient.[facility] HospitalIn the event this information is protected by the Federal Confidentiality of Alcohol and Drug Abuse Patient Records regulations: The Federal rules restrict any use of the information to criminally investigate or prosecute any alcohol or drug abuse patient.[facility] HospitalIn the event this information is protected by the Federal Confidentiality of Alcohol and Drug Abuse Patient Records regulations: The Federal rules restrict any use of the information to criminally investigate or prosecute any alcohol or drug abuse patient.[facility] HospitalIn the event this information is protected by the Federal Confidentiality of Alcohol and Drug Abuse Patient Records regulations: The Federal rules restrict any use of the information to criminally investigate or prosecute any alcohol or drug abuse patient.[facility] HospitalIn the event this information is protected by the Federal Confidentiality of Alcohol and Drug Abuse Patient Records regulations: The Federal rules restrict any use of the information to criminally investigate or prosecute any alcohol or drug abuse patient.[facility] HospitalIn the event this information is protected by the Federal Confidentiality of Alcohol and Drug Abuse Patient Records regulations: The Federal rules restrict any use of the information to criminally investigate or prosecute any alcohol or drug abuse patient.[facility] HospitalIn the event this information is protected by the Federal Confidentiality of Alcohol and Drug Abuse Patient Records regulations: The Federal rules restrict any use of the information to criminally investigate or prosecute any alcohol or drug abuse patient.[facility] HospitalIn the event this information is protected by the Federal Confidentiality of Alcohol and Drug Abuse Patient Records regulations: The Federal rules restrict any use of the information to criminally investigate or prosecute any alcohol or drug abuse patient.[facility] HospitalIn the event this information is protected by the Federal Confidentiality of Alcohol and Drug Abuse Patient Records regulations: The Federal rules restrict any use of the information to criminally investigate or prosecute any alcohol or drug abuse patient.[facility] HospitalIn the event this information is protected by the Federal Confidentiality of Alcohol and Drug Abuse Patient Records regulations: The Federal rules restrict any use of the information to criminally investigate or prosecute any alcohol or drug abuse patient.[facility] the event this information is protected by the Federal Confidentiality of Alcohol and Drug Abuse Patient Records regulations: The Federal rules restrict any use of the information to criminally investigate or prosecute any alcohol or drug abuse patient.[facility] HospitalIn the event this information is protected by the Federal Confidentiality of Alcohol and Drug Abuse Patient Records regulations: The Federal rules restrict any use of the information to criminally investigate or prosecute any alcohol or drug abuse patient.[facility] HospitalIn the event this information is protected [...] or prosecute any alcohol or drug abuse patient.[facility] HospitalIn the event this information is protected by the Federal Confidentiality of Alcohol and Drug Abuse Patient Records regulations: The Federal rules restrict any use of the information to criminally investigate or prosecute any alcohol or drug abuse patient.[facility] HospitalIn the event this information is protected by the Federal Confidentiality of Alcohol and Drug Abuse Patient Records regulations: The Federal rules restrict any use of the information to criminally investigate or prosecute any alcohol or drug abuse patient.[facility] HospitalIn the event this information is protected by the Federal Confidentiality of Alcohol and Drug Abuse Patient Records regulations: The Federal rules restrict any use of the information to criminally investigate or prosecute any alcohol or drug abuse patient.[facility] HospitalIn the event this information is protected by the Federal Confidentiality of Alcohol and Drug Abuse Patient Records regulations: The Federal rules restrict any use of the information to criminally investigate or prosecute any alcohol or drug abuse patient.[facility] HospitalIn the event this information is protected by the Federal Confidentiality of Alcohol and Drug Abuse Patient Records regulations: The Federal rules restrict any use of the information to criminally investigate or prosecute any alcohol or drug abuse patient.[facility] HospitalIn the event this information is protected by the Federal Confidentiality of Alcohol and Drug Abuse Patient Records regulations: The Federal rules restrict any use of the information to criminally investigate or prosecute any alcohol or drug abuse patient.[facility] HospitalIn the event this information is protected by the Federal Confidentiality of Alcohol and Drug Abuse Patient Records regulations: The Federal rules restrict any use of the information to criminally investigate or prosecute any alcohol or drug abuse patient.[facility] HospitalIn the event this information is protected by the Federal Confidentiality of Alcohol and Drug Abuse Patient Records regulations: The Federal rules restrict any use of the information to criminally investigate or prosecute any alcohol or drug abuse patient.[facility] HospitalIn the event this information is protected by the Federal Confidentiality of Alcohol and Drug Abuse Patient Records regulations: The Federal rules restrict any use of the information to criminally investigate or prosecute any alcohol or drug abuse patient.[facility] HospitalIn the event this information is protected by the Federal Confidentiality of Alcohol and Drug Abuse Patient Records regulations: The Federal rules restrict any use of the information to criminally investigate or prosecute any alcohol or drug abuse patient.[facility] HospitalIn the event this information is protected by the Federal Confidentiality of Alcohol and Drug Abuse Patient Records regulations: The Federal rules restrict any use of the information to criminally investigate or prosecute any alcohol or drug abuse patient.[facility] HospitalIn the event this information is protected by the Federal Confidentiality of Alcohol and Drug Abuse Patient Records regulations: The Federal rules restrict any use of the information to criminally investigate or prosecute any alcohol or drug abuse patient.[facility] HospitalIn the event this information is protected by the Federal Confidentiality of Alcohol and Drug Abuse Patient Records regulations: The Federal rules restrict any use of the information to criminally investigate or prosecute any alcohol or drug abuse patient.[facility] HospitalIn the event this information is protected by the Federal Confidentiality of Alcohol and Drug Abuse Patient Records regulations: The Federal rules restrict any use of the information to criminally investigate or prosecute any alcohol or drug abuse patient.[facility] HospitalIn the event this information is protected by the Federal Confidentiality of Alcohol and Drug Abuse Patient Records regulations: The Federal rules restrict any use of the information to criminally investigate or prosecute any alcohol or drug abuse patient.[facility] HospitalIn the event this information is protected by the Federal Confidentiality of Alcohol and Drug Abuse Patient Records regulations: The Federal rules restrict any use of the information to criminally investigate or prosecute any alcohol or drug abuse patient.[facility] Hospital[facility] the event this information is protected by the Federal Confidentiality of Alcohol and Drug Abuse Patient Records regulations: The Federal rules restrict any use of the information to criminally investigate or prosecute any alcohol or drug abuse patient.[facility] Goals (unrecognized section and content) Goals [...] ON THE PRIMARY CLINICAL RECORDS. [facility]. provides no warranty or guarantee of the accuracy or completeness of information in this document.
[2024-05-15 16:51] VITALS: BP 149/82; PULSE 75; TEMP 36.6; O2SAT 97; BMI 63.2
--- NOTE | 2024-05-15 16:57 | CT_ITS ---
The [address] [address] Patient Name: ANGELES ORTIZ MRN: [id number] date: 1985 Sex: F Assigned Patient Location: ER Current Patient Location: ER Accession/Order Number: [id number] Exam Date: 05/15/2024 17:45 Report Date: 05/15/2024 20:03 At the request of: JEFF MCFARLANE Procedure: CT abdomen pelvis w con EXAM: CT abdomen pelvis w con HISTORY: right lower quadrant abdominal pain r/o appendicit COMPARISON: CT abdomen pelvis w con Study Date: 03/06/2024 TECHNIQUE: Multiple axial images of the abdomen and pelvis are obtained following IV contrast administration. FINDINGS: This limited examination due to streak artifact related to patient body habitus. The lung bases appear clear. Heart size is normal. Patient is post cholecystectomy. Surgical clips are seen in the gallbladder fossa. The liver, pancreas and bilateral adrenal glands appear unremarkable. The spleen is not visualized, may be surgically absent. Bilateral kidneys appear grossly unremarkable considering streak artifact. No hydronephrosis is seen bilaterally. The urinary bladder appears unremarkable. Intrauterine device is seen in place. Stable appearing prominent cervix/lower uterine segment may be seen. Please correlate clinically. Nonobstructive bowel pattern is seen. Normal-appearing appendix is visualized. Large volume of stool is seen in the colon. No significant bowel wall thickening is seen. No significant free fluid or abnormal fluid collection is seen in the abdomen and pelvis. The vascular structures demonstrate normal caliber. Abdominal wall and visualized soft tissues appear unremarkable. No destructive osseous lesion is seen. CT/CT abdomen pelvis w con IMPRESSION: No acute abnormality on this limited examination. Normal-appearing appendix is visualized. Intrauterine device is seen in place. Stable appearing prominent cervix/lower uterine segment may be seen. Please correlate clinically. Large volume of stool seen in the colon. Prior cholecystectomy and splenectomy. This limited examination due to streak artifact related to patient body habitus. Electronically authenticated by: JARAD HAWKINS Date: 05/15/2024 20:03
--- NOTE | 2024-05-15 17:00 | ED_ITS ---
HPI HPI - General Adult General Chief complaint: Abdominal Pain Stated complaint: abd pain Time Seen by Provider: 05/15/24 16:50 Source: patient Mode of arrival: walk-in History of Present Illness HPI narrative: 38-year-old female presents to the ER with concerns of right lower quadrant abdominal pain. Patient states she has not felt well for the past 2 days, symptoms started yesterday with pain in the right lower quadrant gradually worsening. Patient reports nausea and loss of appetite, no measurable fever. Patient states she has had ovarian cyst in the past and equates the discomfort to this. She does not have a regular menstrual cycle. Patient denies dysuria. There is been no vomiting or diarrhea. Patient appears uncomfortable noting pain with ambulation and position change. She denies any chest pain or shortness of breath. She is also having her daughter seen for unrelated complaint. Onset (ago): day(s) (2) Location: Reports abdomen Radiation: Reports non-radiation Severity: moderate Quality: Reports aching and sharp Pain Consistency: Reports constant Relieving factors: Reports none Exacerbating factors: Reports movement Related Data Home Medications ?Medication ?Instructions ?Recorded ?Confirmed aripiprazole 10 mg tablet 15 mg PO DAILY 12/13/22 10/02/23 buspirone 15 mg tablet 15 mg PO BID 12/13/22 10/02/23 cetirizine 10 mg tablet 10 mg PO DAILY 12/13/22 10/02/23 duloxetine 60 mg capsule,delayed 60 mg PO DAILY 12/13/22 10/02/23 release famotidine 20 mg tablet 20 mg PO Q12H PRN GI 12/13/22 10/02/23 hydroxyzine pamoate 50 mg capsule 50 mg PO DAILY PRN sleep 12/13/22 10/02/23 lamotrigine 100 mg tablet 100 mg PO DAILY 12/13/22 10/02/23 montelukast 10 mg tablet 10 mg PO DAILY 12/13/22 10/02/23 omeprazole 40 mg capsule,delayed 40 mg PO DAILY 12/13/22 10/02/23 release pantoprazole 40 mg tablet,delayed 40 mg PO DAILY GI 12/13/22 10/02/23 release propranolol 60 mg tablet 60 mg PO Q12H 12/13/22 10/02/23 hydrochlorothiazide 12.5 mg tablet 12.5 mg PO QDAY 10/02/23 10/02/23 rizatriptan 10 mg disintegrating 10 mg PO Q2H PRN migraine headache 10/02/23 10/02/23 tablet Previous Rx's ?Medication ?Instructions ?Recorded hydrocodone 5 mg-acetaminophen 325 1 tab PO Q6H PRN pain 5 days #20 03/12/24 mg tablet tabs meloxicam 15 mg tablet 15 mg PO DAILY PRN pain #7 tabs 03/26/24 orphenadrine citrate 100 mg 100 mg PO ONCE PRN muscle spasm #7 03/26/24 tablet,extended release tabs dicyclomine 20 mg tablet 20 mg PO TID PRN abdominal pain 2 05/15/24 days #6 tabs ibuprofen 600 mg tablet 600 mg PO TID PRN pain #30 tabs 05/15/24 ondansetron HCl 4 mg tablet 4 mg PO Q6H PRN nausea and 05/15/24 vomiting #12 tabs Allergies Allergy/AdvReac Type Severity Reaction Status Date / Time adhesive tape Allergy Rash Verified 12/13/22 22:40 cephalexin (From Keflex) Allergy Rash Verified 12/13/22 22:40 Penicillins Allergy Rash Verified 12/13/22 22:40 amoxicillin (From Augmentin) AdvReac Gastrointestinal Verified 12/13/22 22:38 Upset clavulanic acid (From AdvReac Gastrointestinal Verified 12/13/22 22:38 Augmentin) Upset tramadol (From Ultram) AdvReac Gastrointestinal Verified 12/13/22 22:40 Upset Opioid HPI Opioid Management Most Recent Opioid Data: Last Pain Scale 8 05/15/24 17:22 05/15/24 Last MAR Pain Assessment 05/15/24 17:22 Review of Systems ROS Constitutional Denies: fever or chills Ears, nose, mouth, and throat Denies: throat pain or neck pain Cardiovascular Denies: chest pain, palpitations or edema Respiratory Denies: shortness of breath, cough or wheezing Gastrointestinal Reports: abdominal pain and nausea; Denies: vomiting Genitourinary Denies: painful urination, urinary frequency or blood in urine Musculoskeletal Denies: back pain or neck pain Integumentary/Breast Denies: rash Neurological Denies: headache Psychiatric Denies: anxiety [facility] Medical History (Updated 05/15/24 @ 20:17 by MICHELLE White) Ulnar neuropathy ?G56.20 - Lesion of ulnar nerve, unspecified upper limb (ICD-10) Anemia ?D64.9 - Anemia, unspecified (ICD-10) Insomnia ?G47.00 - Insomnia, unspecified (ICD-10) PTSD (post-traumatic stress disorder) ?F43.10 - Post-traumatic stress disorder, unspecified (ICD-10) Panic attacks ?F41.0 - Panic disorder [episodic paroxysmal anxiety] (ICD-10) Anxiety ?F41.9 - Anxiety disorder, unspecified (ICD-10) Depression ?F32.A - Depression, unspecified (ICD-10) COVID-19 ?U07.1 - COVID-19 (ICD-10) Migraine ?G43.909 - Migraine, unspecified, not intractable, without status migrainosus (ICD-10) Kidney stones ?N20.0 - Calculus of kidney (ICD-10) Heartburn ?R12 - Heartburn (ICD-10) Hypertension ?I10 - Essential (primary) hypertension (ICD-10) Sleep apnea ?G47.30 - Sleep apnea, unspecified (ICD-10) Pituitary tumor ?D49.7 - Neoplasm of unspecified behavior of endocrine glands and other parts of nervous system (ICD-10) GERD (gastroesophageal reflux disease) ?K21.9 - Gastro-esophageal reflux disease without esophagitis (ICD-10) Eczema ?L30.9 - Dermatitis, unspecified (ICD-10) Chronic back pain ?M54.9 - Dorsalgia, unspecified (ICD-10) ?G89.29 - Other chronic pain (ICD-10) Bipolar depression ?F31.9 - Bipolar disorder, unspecified (ICD-10) Retained intrauterine contraceptive device (IUD) ?T83.39XA - Other mechanical complication of intrauterine contraceptive device, initial encounter (ICD-10) Surgical History (Updated 10/02/23 @ 09:19 by Mariia Moscoso NP) History of esophagogastroduodenoscopy (EGD) ?Z98.890 - Other specified postprocedural states (ICD-10) 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 - Bariatric surgery status (ICD-10) History of tonsillectomy ?Z90.89 - Acquired absence of other organs (ICD-10) History of cholecystectomy ?Z90.49 - Acquired absence of other specified parts of digestive tract (ICD- 10) History of carpal tunnel release ?Z98.890 - Other specified postprocedural states (ICD-10) History of spinal surgery ?Z98.890 - Other specified postprocedural states (ICD-10) History of spinal surgery ?Z98.890 - Other specified postprocedural states (ICD-10) H/O splenectomy ?Z90.81 - Acquired absence of spleen (ICD-10) H/O laparoscopy ?Z98.890 - Other specified postprocedural states (ICD-10) H/O gastric sleeve ?Z90.3 - Acquired absence of stomach [part of] (ICD-10) Family History (Updated 10/02/23 @ 09:19 by Mariia Moscoso NP) Other Family history of diabetes mellitus Family history of hypertension Family history of myocardial infarction Lymphoma Social History (Updated 10/02/23 @ 09:14 by Mariia Moscoso NP) Within the past year, how often did you have a drink containing alcohol: never Score interpretation: A score less than 3 is consistent with normal alcohol consumption. Smoking status: Former smoker Non-prescribed substance use: denies use Highest level of school completed/degree received: Associate degree: occupational, technical, vocational program Little interest or pleasure in doing things: not at all Feeling down, depressed, or hopeless: not at all Exam Narrative Exam Narrative: Nurses notes and vital signs reviewed and patient is not hypoxic. General: The patient appears well and in no apparent distress. Patient is resting comfortably on cart. Skin: Warm, dry, no pallor noted. Head: Normocephalic, atraumatic Neck: Supple, trachea mid-line, no tenderness, no lymphadenopathy Eye: Pupils are equal, round and reactive to light, EOMI Ears, Nose, Mouth, and Throat: TM are clear, normal light reflex, oral mucosa is moist, no posterior oropharynx erythema or hypertrophy, uvula is mid-line Cardiovascular: Regular Rate and Rhythm Respiratory: Patient is in no distress, no accessory muscle use, lungs are clear to auscultation, no wheezing, rales or rhonchi. Chest Wall: no tenderness Back: non-tender, no CVA tenderness Musculoskeletal: normal ROM, no tenderness, no swelling GI: Normal bowel sounds, obese abdomen, tenderness noted in the right lower quadrant, mild Rovsing sign. No rigidity. No rebound. Neurological: A&O x4 Psychiatric: Cooperative Constitutional Vital Signs, click to edit/add: Last Vital Signs Temp 97.8 F 05/15/24 16:51 Pulse 75 05/15/24 16:51 Resp 18 05/15/24 16:51 BP 149/82 H 05/15/24 16:51 Pulse Ox 97 05/15/24 16:51 O2 Del Method Room Air 05/15/24 16:51 Course Vital Signs Vital signs: Vital Signs Temperature 97.8 F 05/15/24 16:51 Pulse Rate 75 05/15/24 16:51 Respiratory Rate 18 05/15/24 16:51 Blood Pressure 149/82 H 05/15/24 16:51 Pulse Oximetry 97 05/15/24 16:51 Oxygen Delivery Method Room Air 05/15/24 16:51 Temperature 97.8 F 05/15/24 16:51 Pulse Rate 75 05/15/24 16:51 Respiratory Rate 18 05/15/24 16:51 Blood Pressure 149/82 H 05/15/24 16:51 Pulse Oximetry 97 05/15/24 16:51 Oxygen Delivery Method Room Air 05/15/24 16:51 Medical Decision Making MDM Narrative Medical decision making narrative: Discussed patient's symptoms, concern for discomfort in the right lower quadrant. Patient agreeable to CT study for further evaluation. Evaluated, we discussed her laboratory studies. Patient states she has seen hematology she is asplenic and that is why her white blood cell count is typically elevated along with her platelets. Patient notes nausea still persisting despite receiving Zofran. She is agreeable to a second dose. She plans to drive home this evening with her child who is also seen as a patient. She is aware that we are awaiting the CT results. CT findings. Recommend close follow-up to [facility] for reevaluation. The appendix was noted to be normal, IUD in place. The patient is to followup with primary care physician in next 2-3 days or to return to the emergency department should any of the signs or symptoms worsen or new symptoms develop. Patient had questions answered. The patient agrees with the following Diagnosis and Treatment plan and the patient will be discharged home. Lab Data Labs: Lab Results 05/15/24 05/15/24 Range/Units 17:10 18:25 WBC 19.2 H (4.0-11.0) 10^3/uL RBC 4.71 (4.20-5.40) 10^6/uL Hgb 13.8 (12.0-16.0) g/dL Hct 43.3 (36.0-48.0) % MCV 91.9 (81.0-99.0) fL MCH 29.3 (26.7-34.0) pg MCHC 31.9 (29.9-35.2) g/dL RDW 15.3 H (11.0-15.0) % Plt Count 596 H (150-450) 10^3/uL MPV 8.9 L (9.5-13.5) fL Seg Neuts % (Manual) 64.0 (43.0-75.0) Lymphocytes % (Manual) 17.0 L (20.5-60.0) % Monocytes % (Manual) 14.0 H (1.7-12.0) % Eosinophils % (Manual) 4.0 (0.9-7.0) % Basophils % (Manual) 1.0 (0.2-2.0) % Neutrophils # (Manual) 12.28 H (1.4-6.5) 10^3/uL Lymphocytes # (Manual) 3.26 (1.20-3.80) 10^3/uL Monocytes # (Manual) 2.68 H (0.30-0.80) 10^3/uL Eosinophils # (Manual) 0.76 H (0.00-0.70) 10^3/uL Basophils # (Manual) 0.19 H (0.00-0.10) 10^3/uL Sodium 139 (136-145) mmol/L Potassium 3.9 (3.5-5.1) mmol/L Chloride 102 (98-107) mmol/L Carbon Dioxide 29.2 (21.0-32.0) mmol/L Anion Gap 11.7 BUN 11.0 (7.0-18.0) mg/dL Creatinine 0.89 (0.55-1.02) mg/dL Est GFR ( Amer) >60 (>=60 mL/min/1.73m^2) Est GFR (Non-Af Amer) >60 (>=60 mL/min/1.73m^2) BUN/Creatinine Ratio 12.4 Glucose 100 (74-106) mg/dL Calcium 9.5 (8.5-10.1) mg/dL Total Bilirubin 0.3 (0.2-1.0) mg/dL AST 13 L (15-37) U/L ALT 32 (14-59) U/L Alkaline Phosphatase 101 (46-116) U/L Total Protein 7.4 (6.4-8.2) g/dL Albumin 3.2 L (3.4-5.0) g/dL Globulin 4.2 g/dL Albumin/Globulin Ratio 0.8 Lipase 32.0 (16.0-77.0) U/L Serum HCG, Qual Negative (NEGATIVE) Urine Color Yellow (YELLOW) Urine Clarity Clear (CLEAR) Urine pH 6.0 (5.0-9.0) Ur Specific [place] <=1.005 A (1.005-1.025) Urine Protein Negative (NEG/TRACE) mg/dL Urine Glucose (UA) Negative (NEGATIVE) mg/dL Urine Ketones Trace A (NEGATIVE) mg/dL Urine Occult Blood Negative (NEGATIVE) Urine Nitrite Negative (NEGATIVE) Urine Bilirubin Negative (NEGATIVE) Urine Urobilinogen 1.0 (0.2-1.0) EU/dL Ur Leukocyte Esterase Negative (NEGATIVE) Imaging Data CT scan - abdomen: Radiologist's impression: ITS Impressions Abdomen/Pelvis CT 05/15/24 16:57 IMPRESSION: No acute abnormality on this limited examination. Normal-appearing appendix is visualized. Intrauterine device is seen in place. Stable appearing prominent cervix/lower uterine segment may be seen. Please correlate clinically. Large volume of stool seen in the colon. Prior cholecystectomy and splenectomy. This limited examination due to streak artifact related to patient body habitus. Electronically authenticated by: JARAD HAWKINS Date: 05/15/2024 20:03 Discharge Plan Discharge Chief Complaint: Abdominal Pain Clinical Impression: Abdominal pain, Nausea Patient Disposition: Home, Self-Care Time of Disposition Decision: 20:17 Condition: Good Prescriptions / Home Meds: New ondansetron HCl 4 mg tablet 4 mg PO Q6H PRN (Reason: nausea and vomiting) Qty: 12 0RF ibuprofen 600 mg tablet 600 mg PO TID PRN (Reason: pain) Qty: 30 0RF dicyclomine 20 mg tablet 20 mg PO TID PRN (Reason: abdominal pain) 2 Days Qty: 6 0RF No Action rizatriptan 10 mg tablet,disintegrating 10 mg PO Q2H PRN (Reason: migraine headache) hydrochlorothiazide 12.5 mg tablet 12.5 mg PO QDAY hydrocodone-acetaminophen 5-325 mg tablet 1 tab PO Q6H PRN (Reason: pain) 5 Days Qty: 20 0RF meloxicam 15 mg tablet 15 mg PO DAILY PRN (Reason: pain) Qty: 7 0RF orphenadrine citrate 100 mg tablet extended release 100 mg PO ONCE PRN (Reason: muscle spasm) Qty: 7 0RF aripiprazole 10 mg tablet 15 mg PO DAILY Patient Comments: HS buspirone 15 mg tablet 15 mg PO BID cetirizine 10 mg tablet 10 mg PO DAILY duloxetine 60 mg capsule,delayed release(DR/EC) 60 mg PO DAILY famotidine 20 mg tablet 20 mg PO Q12H PRN (Reason: GI) hydroxyzine pamoate 50 mg capsule 50 mg PO DAILY PRN (Reason: sleep) lamotrigine 100 mg tablet 100 mg PO DAILY montelukast 10 mg tablet 10 mg PO DAILY omeprazole 40 mg capsule,delayed release(DR/EC) 40 mg PO DAILY pantoprazole 40 mg tablet,delayed release (DR/EC) 40 mg PO DAILY propranolol 60 mg tablet 60 mg PO Q12H Print Language: Bengali Instructions: Acute Abdominal Pain (ED) Referrals: Jamie Harley DO [Physician] - As soon as possible Lisa Roberts NP [Primary Care Provider] - As soon as possible
[2024-05-15 17:17] LABS: Hematocrit 43.3 % (36.0-48.0); Hemoglobin 13.8 g/dL (12.0-16.0); Mean Corpuscular HGB Conc 31.9 g/dL (29.9-35.2); Mean Corpuscular Hemoglobin 29.3 pg (26.7-34.0); Mean Corpuscular Volume 91.9 fL (81.0-99.0); Mean Platelet Volume 8.9 fL (9.5-13.5); Platelet Count 596 10^3/uL (150-450); Red Blood Count 4.71 10^6/uL (4.20-5.40); Red Cell Distribution Width 15.3 % (11.0-15.0); White Blood Count 19.2 10^3/uL (4.0-11.0)
[2024-05-15] MEDS: KETOROLAC TROMETHAMINE 30 MG/ML VIAL IVP (17:22)
[2024-05-15] MEDS: ONDANSETRON PF 4 MG/2 ML VIAL IV ×2 (17:22→18:44)
[2024-05-15 17:29] LABS: HCG Qualitative NEGATIVE (NEGATIVE); Internal Control Within Normal Limits
[2024-05-15 17:31] LABS: Alanine Aminotransferase 32 U/L (14-59); Albumin Globulin Ratio 0.8; Albumin Level 3.2 g/dL (3.4-5.0); Alkaline Phosphatase 101 U/L (46-116); Anion Gap 11.7; Aspartate Amino Transferase 13 U/L (15-37); BUN Creatinine Ratio 12.4; Bilirubin Total 0.3 mg/dL (0.2-1.0); Calcium 9.5 mg/dL (8.5-10.1); Carbon Dioxide 29.2 mmol/L (21.0-32.0); Chloride 102 mmol/L (98-107); Estimated GFR (African America >60 (>=60 mL/min/1.73m^2); Estimated GFR (Non-African Ame >60 (>=60 mL/min/1.73m^2); Globulin 4.2 g/dL; Glucose 100 mg/dL (74-106); Potassium 3.9 mmol/L (3.5-5.1); Sodium 139 mmol/L (136-145); Total Protein 7.4 g/dL (6.4-8.2)
[2024-05-15 17:39] LABS: Basophils Abs Manual 0.19 10^3/uL (0.00-0.10); Eosinophils Absolute Manual 0.76 10^3/uL (0.00-0.70); Lymphocytes Absolute Manual 3.26 10^3/uL (1.20-3.80); Monocytes Absolute Manual 2.68 10^3/uL (0.30-0.80); Segmented Neut Absolute Manual 12.28 10^3/uL (1.4-6.5)
[2024-05-15 18:29] LABS: Bilirubin Urine NEGATIVE (NEGATIVE); Blood Urine NEGATIVE (NEGATIVE); Clarity Urine CLEAR (CLEAR); Color Urine YELLOW (YELLOW); Glucose Urine UA NEGATIVE (NEGATIVE); Ketones Urine TRACE mg/dL (NEGATIVE); Leukocyte Esterase Urine NEGATIVE (NEGATIVE); Nitrite Urine NEGATIVE (NEGATIVE); Protein Urine NEGATIVE (NEG/TRACE); Specific Gravity Urine <=1.005 (1.005-1.025)
[2024-05-15 18:31] LABS: Urine Microscopic Indicated NO
== END 2024-05-15 20:27 | disposition home or self-care (01) ==
PROVIDERS: Personal Emergency Response Attendant; Emergency Provider Emergency Medicine; PCP Nurse Practitioner Family
DX: R10.31 Right lower quadrant pain (principal); R11.0 Nausea; Z90.49 Acquired absence of other specified parts of digestive tract; Z90.81 Acquired absence of spleen; Z87.891 Personal history of nicotine dependence
CPT/HCPCS: 36415; 74177; 80053; 81003; 83690; 84703; 85007; 85027; 96374; 96375; 96376; 99285; J1885; J2405; Q9967

== ENCOUNTER 2024-07-01 12:40 | Emergency (ER) | payer MEDICAID, SELFPAY ==
[2024-07-01 12:49] VITALS: BP 129/80; PULSE 77; TEMP 36.5; O2SAT 95; BMI 67.1
--- NOTE | 2024-07-01 13:23 | CT_ITS ---
[address] [address] Patient Name: ANGELES ORTIZ MRN: [id number] date: 1985 Sex: F Assigned Patient Location: ER Current Patient Location: ER Accession/Order Number: [id number] Exam Date: 07/01/2024 14:00 Report Date: 07/01/2024 14:27 At the request of: CHARLIE GRIDER Procedure: CT abdomen pelvis w con EXAMINATION: CT abdomen pelvis w con HISTORY: abd pain COMPARISON: 05/15/2024 TECHNIQUE: CT images were created with IV contrast. Axial, Coronal, and Sagittal images. Dose reduction techniques were achieved by using automated exposure control and/or adjustment of mA and/or kV according to patient size and/or use of iterative reconstruction technique. FINDINGS: LUNG BASES: No visible pulmonary or pleural disease. LIVER: No enlargement, atrophy, abnormal density, or significant focal lesion. BILIARY: Surgical clips from cholecystectomy PANCREAS: No lesion, fluid collection, ductal dilatation, or atrophy. SPLEEN: Surgical clips likely from splenectomy. 4.2 cm soft tissue in the left upper quadrant likely a splenule ADRENALS: No mass or enlargement. KIDNEYS: No mass, obstruction, or calcification. BOWEL/MESENTERY: Multiple surgical suture lines along the stomach. Nonobstructive bowel gas pattern. Normal appendix. AORTA/VASCULAR: No aneurysm or dissection. RETROPERITONEUM: No mass or adenopathy. LYMPH NODES: No adenopathy. URINARY BLADDER: No visible focal wall thickening, lesion, or calculus. PELVIC ORGANS: Complex/septated cystic structure in the right adnexa measuring 11.0 x 8.2 cm in axial image 103. IUD. ABDOMINAL WALL: No mass or hernia. BONES: No bony lesion or fracture. OTHER: Negative. CT/CT abdomen pelvis w con IMPRESSION: 11 cm right adnexal cystic lesion, significantly increased in size from the prior exam Electronically authenticated by: ESTELLA WHITEHEAD Date: 07/01/2024 14:27
[2024-07-01] MEDS: 0.9 % SODIUM CHLORIDE 1,000 ML 100 ML IV (13:55)
[2024-07-01] MEDS: ONDANSETRON PF 4 MG/2 ML VIAL IV (13:55)
[2024-07-01 13:59] LABS: Basophils Absolute Auto 0.1 10^3/uL (0.0-0.1); Basophils Percent Auto 0.8 % (0.2-2.0); Eosinophils Absolute Auto 0.4 10^3/uL (0.0-0.7); Hematocrit 41.6 % (36.0-48.0); Hemoglobin 13.5 g/dL (12.0-16.0); Immature Granulocytes Abs Auto 0.02 10^3/uL (0.00-0.03); Immature Granulocytes Pct Auto 0.2 % (0.0-0.5); Lymphocytes Absolute Auto 3.7 10^3/uL (1.2-3.8); Lymphocytes Percent Auto 28.7 % (20.5-60.0); Mean Corpuscular HGB Conc 32.5 g/dL (29.9-35.2); Mean Corpuscular Hemoglobin 30.6 pg (26.7-34.0); Mean Corpuscular Volume 94.3 fL (81.0-99.0); Mean Platelet Volume 9.3 fL (9.5-13.5); Monocytes Percent Auto 7.5 % (1.7-12.0); Neutrophils Absolute Auto 7.7 10^3/uL (1.4-6.5); Neutrophils Percent Auto 59.8 % (43.0-75.0); Platelet Count 546 10^3/uL (150-450); Red Blood Count 4.41 10^6/uL (4.20-5.40); Red Cell Distribution Width 15.1 % (11.0-15.0); White Blood Count 12.9 10^3/uL (4.0-11.0)
[2024-07-01 14:16] LABS: Anion Gap 9.9
[2024-07-01 14:18] LABS: Alanine Aminotransferase 28 U/L (14-59); Albumin Globulin Ratio 0.8; Albumin Level 3.2 g/dL (3.4-5.0); Alkaline Phosphatase 99 U/L (46-116); Aspartate Amino Transferase 26 U/L (15-37); BUN Creatinine Ratio 12.5; Bilirubin Total 0.2 mg/dL (0.2-1.0); Calcium 9.2 mg/dL (8.5-10.1); Carbon Dioxide 30.1 mmol/L (21.0-32.0); Chloride 102 mmol/L (98-107); Estimated GFR (African America >60 (>=60 mL/min/1.73m^2); Estimated GFR (Non-African Ame >60 (>=60 mL/min/1.73m^2); Globulin 4.1 g/dL; Glucose 98 mg/dL (74-106); Sodium 138 mmol/L (136-145); Total Protein 7.3 g/dL (6.4-8.2); Troponin I High Sensitivity 4.5 pg/mL (4.0-51.3)
--- NOTE | 2024-07-01 14:48 | ED.ABDPAIN1 ---
Documented by User: Kirsty Orlando 07/01/24 17:12 HPI - Abdominal Pain General Chief Complaint: Abdominal Pain Stated Complaint: STOMACH PAINS NAUSEA Time Seen by Provider: 07/01/24 13:20 History of Present Illness HPI narrative: 39-year-old obese female presents here with chief complaint of nausea vomiting. Patient has a history of a gastric bypass other abdominal procedures. She has not lost any weight. She states she recently had difficulty with keeping any food down. She was told to come here for evaluation due to her history of abdominal surgeries. She states her gallbladder is also been removed. Denies any right lower quadrant pain. History of . Related Data Home Medications ?Medication ?Instructions ?Recorded ?Confirmed aripiprazole 10 mg tablet 15 mg PO DAILY 12/13/22 10/02/23 buspirone 15 mg tablet 15 mg PO BID 12/13/22 10/02/23 cetirizine 10 mg tablet 10 mg PO DAILY 12/13/22 10/02/23 duloxetine 60 mg capsule,delayed 60 mg PO DAILY 12/13/22 10/02/23 release famotidine 20 mg tablet 20 mg PO Q12H PRN GI 12/13/22 10/02/23 hydroxyzine pamoate 50 mg capsule 50 mg PO DAILY PRN sleep 12/13/22 10/02/23 lamotrigine 100 mg tablet 100 mg PO DAILY 12/13/22 10/02/23 montelukast 10 mg tablet 10 mg PO DAILY 12/13/22 10/02/23 omeprazole 40 mg capsule,delayed 40 mg PO DAILY 12/13/22 10/02/23 release pantoprazole 40 mg tablet,delayed 40 mg PO DAILY GI 12/13/22 10/02/23 release propranolol 60 mg tablet 60 mg PO Q12H 12/13/22 10/02/23 hydrochlorothiazide 12.5 mg tablet 12.5 mg PO QDAY 10/02/23 10/02/23 rizatriptan 10 mg disintegrating 10 mg PO Q2H PRN migraine headache 10/02/23 10/02/23 tablet Previous Rx's ?Medication ?Instructions ?Recorded hydrocodone 5 mg-acetaminophen 325 1 tab PO Q6H PRN pain 5 days #20 03/12/24 mg tablet tabs meloxicam 15 mg tablet 15 mg PO DAILY PRN pain #7 tabs 03/26/24 orphenadrine citrate 100 mg 100 mg PO ONCE PRN muscle spasm #7 03/26/24 tablet,extended release tabs dicyclomine 20 mg tablet 20 mg PO TID PRN abdominal pain 2 05/15/24 days #6 tabs ibuprofen 600 mg tablet 600 mg PO TID PRN pain #30 tabs 05/15/24 ondansetron HCl 4 mg tablet 4 mg PO Q6H PRN nausea and 05/15/24 vomiting #12 tabs ketorolac 10 mg tablet 10 mg PO Q8H PRN pain 1 day #10 07/01/24 tabs ondansetron 4 mg disintegrating 4 mg PO Q8H PRN nausea and 07/01/24 tablet vomiting 43 days #10 tabs Allergies Allergy/AdvReac Type Severity Reaction Status Date / Time adhesive tape Allergy Rash Verified 12/13/22 22:40 cephalexin (From Keflex) Allergy Rash Verified 12/13/22 22:40 Penicillins Allergy Rash Verified 12/13/22 22:40 amoxicillin (From Augmentin) AdvReac Gastrointestinal Verified 12/13/22 22:38 Upset clavulanic acid (From AdvReac Gastrointestinal Verified 12/13/22 22:38 Augmentin) Upset tramadol (From Ultram) AdvReac Gastrointestinal Verified 12/13/22 22:40 Upset Review of Systems ROS Narrative All Systems are negative except as noted/marked.All systems reviewed and otherwise negative [facility] Medical History (Updated 07/01/24 @ 17:04 by Kirsty Orlando) Ulnar neuropathy ?G56.20 - Lesion of ulnar nerve, unspecified upper limb (ICD-10) Anemia ?D64.9 - Anemia, unspecified (ICD-10) Insomnia ?G47.00 - Insomnia, unspecified (ICD-10) PTSD (post-traumatic stress disorder) ?F43.10 - Post-traumatic stress disorder, unspecified (ICD-10) Panic attacks ?F41.0 - Panic disorder [episodic paroxysmal anxiety] (ICD-10) Anxiety ?F41.9 - Anxiety disorder, unspecified (ICD-10) Depression ?F32.A - Depression, unspecified (ICD-10) COVID-19 ?U07.1 - COVID-19 (ICD-10) Migraine ?G43.909 - Migraine, unspecified, not intractable, without status migrainosus (ICD-10) Kidney stones ?N20.0 - Calculus of kidney (ICD-10) Heartburn ?R12 - Heartburn (ICD-10) Hypertension ?I10 - Essential (primary) hypertension (ICD-10) Sleep apnea ?G47.30 - Sleep apnea, unspecified (ICD-10) Pituitary tumor ?D49.7 - Neoplasm of unspecified behavior of endocrine glands and other parts of nervous system (ICD-10) GERD (gastroesophageal reflux disease) ?K21.9 - Gastro-esophageal reflux disease without esophagitis (ICD-10) Eczema ?L30.9 - Dermatitis, unspecified (ICD-10) Chronic back pain ?M54.9 - Dorsalgia, unspecified (ICD-10) ?G89.29 - Other chronic pain (ICD-10) Bipolar depression ?F31.9 - Bipolar disorder, unspecified (ICD-10) Retained intrauterine contraceptive device (IUD) ?T83.39XA - Other mechanical complication of intrauterine contraceptive device, initial encounter (ICD-10) Surgical History (Updated 10/02/23 @ 09:19 by Mariia Moscoso NP) History of esophagogastroduodenoscopy (EGD) ?Z98.890 - Other specified postprocedural states (ICD-10) 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 - Bariatric surgery status (ICD-10) History of tonsillectomy ?Z90.89 - Acquired absence of other organs (ICD-10) History of cholecystectomy ?Z90.49 - Acquired absence of other specified parts of digestive tract (ICD-10) History of carpal tunnel release ?Z98.890 - Other specified postprocedural states (ICD-10) History of spinal surgery ?Z98.890 - Other specified postprocedural states (ICD-10) History of spinal surgery ?Z98.890 - Other specified postprocedural states (ICD-10) H/O splenectomy ?Z90.81 - Acquired absence of spleen (ICD-10) H/O laparoscopy ?Z98.890 - Other specified postprocedural states (ICD-10) H/O gastric sleeve ?Z90.3 - Acquired absence of stomach [part of] (ICD-10) Family History (Updated 10/02/23 @ 09:19 by Mariia Moscoso NP) Other Family history of diabetes mellitus Family history of hypertension Family history of myocardial infarction Lymphoma Social History (Updated 10/02/23 @ 09:14 by Mariia Moscoso NP) Within the past year, how often did you have a drink containing alcohol: never Score interpretation: A score less than 3 is consistent with normal alcohol consumption. Smoking status: Former smoker Non-prescribed substance use: denies use Highest level of school completed/degree received: Associate degree: occupational, technical, vocational program Little interest or pleasure in doing things: not at all Feeling down, depressed, or hopeless: not at all Exam Narrative Exam Narrative: All Systems are negative except as noted/marked.All systems reviewed and otherwise negative Nurses note and vital signs reviewed and patient is not hypoxic. General: The patient appears well and in no apparent distress. Patient is resting comfortably on cart. Skin: Warm, dry, no pallor noted. There is no rash noted. Head: Normocephalic, atraumatic Eye: Normal conjunctiva, no drainage, EOMI. PERRL Ears, Nose, Mouth, and Throat: oral mucosa is moist. Nares patent. Mouth without vesicles. Ear canals patent. Tm's without Erythema Cardiovascular: Regular Rate and Rhythm Respiratory: Patient is in no distress, no accessory muscle use, lungs are clear to auscultation, no wheezing, rales or rhonchi Back: non-tender, no CVA tenderness bilaterally to percussion. GI: obese Normal bowel sounds, no tenderness to palpation, no masses appreciated. No rebound, guarding, or rigidity noted. Musculoskeletal: The patient has no evidence of calf tenderness, no pitting edema, symmetrical pulses noted bilaterally Neurological: A&O x4, normal speech Psychiatric: Cooperative Constitutional Vital Signs, click to edit/add: Last Vital Signs Temp 97.7 F 07/01/24 12:49 Pulse 77 07/01/24 12:49 Resp 18 07/01/24 12:49 BP 129/80 07/01/24 12:49 Pulse Ox 95 07/01/24 12:49 O2 Del Method Room Air 07/01/24 12:49 Course Vital Signs Vital signs: Vital Signs Temperature 97.7 F 07/01/24 12:49 Pulse Rate 77 07/01/24 12:49 Respiratory Rate 18 07/01/24 12:49 Blood Pressure 129/80 07/01/24 12:49 Pulse Oximetry 95 07/01/24 12:49 Oxygen Delivery Method Room Air 07/01/24 12:49 Temperature 97.7 F 07/01/24 12:49 Pulse Rate 77 07/01/24 12:49 Respiratory Rate 18 07/01/24 12:49 Blood Pressure 129/80 07/01/24 12:49 Pulse Oximetry 95 07/01/24 12:49 Oxygen Delivery Method Room Air 07/01/24 12:49 MDM - Abdominal Pain MDM Narrative Medical decision making narrative: 39-year-old obese female presenting here chief complaint of nausea vomiting. CBC and BMP reviewed. Urinalysis reviewed and unremarkable. CT scan showed a large adnexal mass which she is known to have. Pelvic ultrasound was performed here today as well. 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 Patient also encouraged to follow-up with primary care physician. She will be discharged home with a prescription of Zofran and Toradol. I believe her gastritis is due to body habitus and diet. Patient is told to continue with her omeprazole and Pepcid. No acute surgical abdomen today. Patient stable to discharge to home. Differential Diagnosis Differential diagnosis: Likely abdominal pain, acute appendicitis, calculus of kidney, constipation, diverticulitis and small bowel obstruction Medical Records Attestation: I reviewed the patient's medical records. Lab Data Attestation: I reviewed the patient's lab results. Labs: Lab Results 07/01/24 07/01/24 Range/Units 13:41 15:01 WBC 12.9 H (4.0-11.0) 10^3/uL RBC 4.41 (4.20-5.40) 10^6/uL Hgb 13.5 (12.0-16.0) g/dL Hct 41.6 (36.0-48.0) % MCV 94.3 (81.0-99.0) fL MCH 30.6 (26.7-34.0) pg MCHC 32.5 (29.9-35.2) g/dL RDW 15.1 H (11.0-15.0) % Plt Count 546 H (150-450) 10^3/uL MPV 9.3 L (9.5-13.5) fL Neut % (Auto) 59.8 (43.0-75.0) % Lymph % (Auto) 28.7 (20.5-60.0) % [place] % (Auto) 7.5 (1.7-12.0) % Eos % (Auto) 3.0 (0.9-7.0) % Baso % (Auto) 0.8 (0.2-2.0) % Neut # (Auto) 7.7 H (1.4-6.5) 10^3/uL Lymph # (Auto) 3.7 (1.2-3.8) 10^3/uL [place] # (Auto) 1.0 H (0.3-0.8) 10^3/uL Eos # (Auto) 0.4 (0.0-0.7) 10^3/uL Baso # (Auto) 0.1 (0.0-0.1) 10^3/uL Abs Immat Gran (auto) 0.02 (0.00-0.03) 10^3/uL Imm/Tot Granulo (auto) 0.2 (0.0-0.5) % Sodium 138 (136-145) mmol/L Potassium 4.0 (3.5-5.1) mmol/L Chloride 102 (98-107) mmol/L Carbon Dioxide 30.1 (21.0-32.0) mmol/L Anion Gap 9.9 BUN 10.0 (7.0-18.0) mg/dL Creatinine 0.80 (0.55-1.02) mg/dL Est GFR ( Amer) >60 (>=60 mL/min/1.73m^2) Est GFR (Non-Af Amer) >60 (>=60 mL/min/1.73m^2) BUN/Creatinine Ratio 12.5 Glucose 98 (74-106) mg/dL Calcium 9.2 (8.5-10.1) mg/dL Total Bilirubin 0.2 (0.2-1.0) mg/dL AST 26 (15-37) U/L ALT 28 (14-59) U/L Alkaline Phosphatase 99 (46-116) U/L Troponin I High Sens 4.5 (4.0-51.3) pg/mL Total Protein 7.3 (6.4-8.2) g/dL Albumin 3.2 L (3.4-5.0) g/dL Globulin 4.1 g/dL Albumin/Globulin Ratio 0.8 Urine Color Lt. yellow (YELLOW) Urine Clarity Clear (CLEAR) Urine pH 5.5 (5.0-9.0) Ur Specific [place] <=1.005 A (1.005-1.025) Urine Protein Negative (NEG/TRACE) mg/dL Urine Glucose (UA) Negative (NEGATIVE) mg/dL Urine Ketones Negative (NEGATIVE) mg/dL Urine Occult Blood Small A (NEGATIVE) Urine Nitrite Negative (NEGATIVE) Urine Bilirubin Negative (NEGATIVE) Urine Urobilinogen 0.2 (0.2-1.0) EU/dL Ur Leukocyte Esterase Small A (NEGATIVE) Urine RBC 2-5 A (0-2) #/HPF Urine WBC 0-2 A (NONE SEEN) #/HPF Ur Squamous Epith Cells Moderate A (NONE/RARE) #/LPF Urine Crystals None seen (None Seen) #/HPF Urine Bacteria Trace A (NONE SEEN) #/HPF Urine Casts None seen (NONE SEEN) #/LPF Urine Mucus Trace A (NONE SEEN) Urine HCG, Qual Negative (NEGATIVE) Imaging Data CT scan - abdomen: Radiologist's impression: ITS Impressions Abdomen/Pelvis CT 07/01/24 13:23 IMPRESSION: 11 cm right adnexal cystic lesion, significantly increased in size from the prior exam Electronically authenticated by: ESETLLA WHITEHEAD Date: 07/01/2024 14:27 Transvaginal US 07/01/24 15:01 IMPRESSION: Interval increase in size of complex cystic structure without vascular flow in the right ovary, measuring 10.7 x 7 x 9.6 cm. Pelvic MRI with contrast is recommended for better evaluation. Electronically authenticated by: MAT WOMACK Date: 07/01/2024 18:42 Discharge Plan Discharge Chief Complaint: Abdominal Pain Clinical Impression: Ovarian cyst, Gastritis Patient Disposition: Home, Self-Care Time of Disposition Decision: 17:04 Condition: Good Prescriptions / Home Meds: New ondansetron 4 mg tablet,disintegrating 4 mg PO Q8H PRN (Reason: nausea and vomiting) 43 Days Qty: 10 0RF ketorolac 10 mg tablet 10 mg PO Q8H PRN (Reason: pain) 1 Days Qty: 10 0RF No Action rizatriptan 10 mg tablet,disintegrating 10 mg PO Q2H PRN (Reason: migraine headache) hydrochlorothiazide 12.5 mg tablet 12.5 mg PO QDAY hydrocodone-acetaminophen 5-325 mg tablet 1 tab PO Q6H PRN (Reason: pain) 5 Days Qty: 20 0RF meloxicam 15 mg tablet 15 mg PO DAILY PRN (Reason: pain) Qty: 7 0RF orphenadrine citrate 100 mg tablet extended release 100 mg PO ONCE PRN (Reason: muscle spasm) Qty: 7 0RF aripiprazole 10 mg tablet 15 mg PO DAILY Patient Comments: HS buspirone 15 mg tablet 15 mg PO BID cetirizine 10 mg tablet 10 mg PO DAILY duloxetine 60 mg capsule,delayed release(DR/EC) 60 mg PO DAILY famotidine 20 mg tablet 20 mg PO Q12H PRN (Reason: GI) hydroxyzine pamoate 50 mg capsule 50 mg PO DAILY PRN (Reason: sleep) lamotrigine 100 mg tablet 100 mg PO DAILY montelukast 10 mg tablet 10 mg PO DAILY omeprazole 40 mg capsule,delayed release(DR/EC) 40 mg PO DAILY pantoprazole 40 mg tablet,delayed release (DR/EC) 40 mg PO DAILY propranolol 60 mg tablet 60 mg PO Q12H ondansetron HCl 4 mg tablet 4 mg PO Q6H PRN (Reason: nausea and vomiting) Qty: 12 0RF ibuprofen 600 mg tablet 600 mg PO TID PRN (Reason: pain) Qty: 30 0RF dicyclomine 20 mg tablet 20 mg PO TID PRN (Reason: abdominal pain) 2 Days Qty: 6 0RF Print Language: [place] Instructions: Ovarian Cyst (ED), Gastritis (ED) Referrals: Jamie Harley DO [Physician] - 1 week Lisa Roberts NP [Primary Care Provider] - 1 week Discharge Date/Time: 07/01/24 17:20 Documented by User: Kevin Garcia MD 07/01/24 19:54 HPI - Abdominal Pain General Chief Complaint: Abdominal Pain Stated Complaint: STOMACH PAINS NAUSEA Time Seen by Provider: 07/01/24 13:20 Related Data Home Medications ?Medication ?Instructions ?Recorded ?Confirmed aripiprazole 10 mg tablet 15 mg PO DAILY 12/13/22 10/02/23 buspirone 15 mg tablet 15 mg PO BID 12/13/22 10/02/23 cetirizine 10 mg tablet 10 mg PO DAILY 12/13/22 10/02/23 duloxetine 60 mg capsule,delayed 60 mg PO DAILY 12/13/22 10/02/23 release famotidine 20 mg tablet 20 mg PO Q12H PRN GI 12/13/22 10/02/23 hydroxyzine pamoate 50 mg capsule 50 mg PO DAILY PRN sleep 12/13/22 10/02/23 lamotrigine 100 mg tablet 100 mg PO DAILY 12/13/22 10/02/23 montelukast 10 mg tablet 10 mg PO DAILY 12/13/22 10/02/23 omeprazole 40 mg capsule,delayed 40 mg PO DAILY 12/13/22 10/02/23 release pantoprazole 40 mg tablet,delayed 40 mg PO DAILY GI 12/13/22 10/02/23 release propranolol 60 mg tablet 60 mg PO Q12H 12/13/22 10/02/23 hydrochlorothiazide 12.5 mg tablet 12.5 mg PO QDAY 10/02/23 10/02/23 rizatriptan 10 mg disintegrating 10 mg PO Q2H PRN migraine headache 10/02/23 10/02/23 tablet Previous Rx's ?Medication ?Instructions ?Recorded hydrocodone 5 mg-acetaminophen 325 1 tab PO Q6H PRN pain 5 days #20 03/12/24 mg tablet tabs meloxicam 15 mg tablet 15 mg PO DAILY PRN pain #7 tabs 03/26/24 orphenadrine citrate 100 mg 100 mg PO ONCE PRN muscle spasm #7 03/26/24 tablet,extended release tabs dicyclomine 20 mg tablet 20 mg PO TID PRN abdominal pain 2 05/15/24 days #6 tabs ibuprofen 600 mg tablet 600 mg PO TID PRN pain #30 tabs 05/15/24 ondansetron HCl 4 mg tablet 4 mg PO Q6H PRN nausea and 05/15/24 vomiting #12 tabs ketorolac 10 mg tablet 10 mg PO Q8H PRN pain 1 day #10 07/01/24 tabs ondansetron 4 mg disintegrating 4 mg PO Q8H PRN nausea and 07/01/24 tablet vomiting 43 days #10 tabs Allergies Allergy/AdvReac Type Severity Reaction Status Date / Time adhesive tape Allergy Rash Verified 12/13/22 22:40 cephalexin (From Keflex) Allergy Rash Verified 12/13/22 22:40 Penicillins Allergy Rash Verified 12/13/22 22:40 amoxicillin (From Augmentin) AdvReac Gastrointestinal Verified 12/13/22 22:38 Upset clavulanic acid (From AdvReac Gastrointestinal Verified 12/13/22 22:38 Augmentin) Upset tramadol (From Ultram) AdvReac Gastrointestinal Verified 12/13/22 22:40 Upset PFSH PFSH Medical History (Updated 07/01/24 @ 17:04 by Kirsty Orlando) Ulnar neuropathy ?G56.20 - Lesion of ulnar nerve, unspecified upper limb (ICD-10) Anemia ?D64.9 - Anemia, unspecified (ICD-10) Insomnia ?G47.00 - Insomnia, unspecified (ICD-10) PTSD (post-traumatic stress disorder) ?F43.10 - Post-traumatic stress disorder, unspecified (ICD-10) Panic attacks ?F41.0 - Panic disorder [episodic paroxysmal anxiety] (ICD-10) Anxiety ?F41.9 - Anxiety disorder, unspecified (ICD-10) Depression ?F32.A - Depression, unspecified (ICD-10) COVID-19 ?U07.1 - COVID-19 (ICD-10) Migraine ?G43.909 - Migraine, unspecified, not intractable, without status migrainosus (ICD-10) Kidney stones ?N20.0 - Calculus of kidney (ICD-10) Heartburn ?R12 - Heartburn (ICD-10) Hypertension ?I10 - Essential (primary) hypertension (ICD-10) Sleep apnea ?G47.30 - Sleep apnea, unspecified (ICD-10) Pituitary tumor ?D49.7 - Neoplasm of unspecified behavior of endocrine glands and other parts of nervous system (ICD-10) GERD (gastroesophageal reflux disease) ?K21.9 - Gastro-esophageal reflux disease without esophagitis (ICD-10) Eczema ?L30.9 - Dermatitis, unspecified (ICD-10) Chronic back pain ?M54.9 - Dorsalgia, unspecified (ICD-10) ?G89.29 - Other chronic pain (ICD-10) Bipolar depression ?F31.9 - Bipolar disorder, unspecified (ICD-10) Retained intrauterine contraceptive device (IUD) ?T83.39XA - Other mechanical complication of intrauterine contraceptive device, initial encounter (ICD-10) Surgical History (Updated 10/02/23 @ 09:19 by Mariia Moscoso NP) History of esophagogastroduodenoscopy (EGD) ?Z98.890 - Other specified postprocedural states (ICD-10) 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 - Bariatric surgery status (ICD-10) History of tonsillectomy ?Z90.89 - Acquired absence of other organs (ICD-10) History of cholecystectomy ?Z90.49 - Acquired absence of other specified parts of digestive tract (ICD-10) History of carpal tunnel release ?Z98.890 - Other specified postprocedural states (ICD-10) History of spinal surgery ?Z98.890 - Other specified postprocedural states (ICD-10) History of spinal surgery ?Z98.890 - Other specified postprocedural states (ICD-10) H/O splenectomy ?Z90.81 - Acquired absence of spleen (ICD-10) H/O laparoscopy ?Z98.890 - Other specified postprocedural states (ICD-10) H/O gastric sleeve ?Z90.3 - Acquired absence of stomach [part of] (ICD-10) Family History (Updated 10/02/23 @ 09:19 by Mariia Moscoso NP) Other Family history of diabetes mellitus Family history of hypertension Family history of myocardial infarction Lymphoma Social History (Updated 10/02/23 @ 09:14 by Mariia Moscoso NP) Within the past year, how often did you have a drink containing alcohol: never Score interpretation: A score less than 3 is consistent with normal alcohol consumption. Smoking status: Former smoker Non-prescribed substance use: denies use Highest level of school completed/degree received: Associate degree: occupational, technical, vocational program Little interest or pleasure in doing things: not at all Feeling down, depressed, or hopeless: not at all Exam Constitutional Vital Signs, click to edit/add: Last Vital Signs Temp 97.7 F 07/01/24 12:49 Pulse 77 07/01/24 12:49 Resp 18 07/01/24 12:49 BP 129/80 07/01/24 12:49 Pulse Ox 95 07/01/24 12:49 O2 Del Method Room Air 07/01/24 12:49 Course Vital Signs Vital signs: Vital Signs Temperature 97.7 F 07/01/24 12:49 Pulse Rate 77 07/01/24 12:49 Respiratory Rate 18 07/01/24 12:49 Blood Pressure 129/80 07/01/24 12:49 Pulse Oximetry 95 07/01/24 12:49 Oxygen Delivery Method Room Air 07/01/24 12:49 Temperature 97.7 F 07/01/24 12:49 Pulse Rate 77 07/01/24 12:49 Respiratory Rate 18 07/01/24 12:49 Blood Pressure 129/80 07/01/24 12:49 Pulse Oximetry 95 07/01/24 12:49 Oxygen Delivery Method Room Air 07/01/24 12:49 MDM - Abdominal Pain MDM Narrative Medical decision making narrative: 39-year-old obese female presenting here chief complaint of nausea vomiting. CBC and BMP reviewed. Urinalysis reviewed and unremarkable. CT scan showed a large adnexal mass which she is known to have. Pelvic ultrasound was performed here today as well. 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 Patient also encouraged to follow-up with primary care physician. She will be discharged home with a prescription of Zofran and Toradol. I believe her gastritis is due to body habitus and diet. Patient is told to continue with her omeprazole and Pepcid. No acute surgical abdomen today. Patient stable to discharge to home. I, Dr Garcia, have reviewed the above progress note and course of action in the ER; agree with the above. I have personally gone over history and physical, and discussed disposition and treatment plan with the patient. Lab Data Labs: Lab Results 07/01/24 07/01/24 Range/Units 13:41 15:01 WBC 12.9 H (4.0-11.0) 10^3/uL RBC 4.41 (4.20-5.40) 10^6/uL Hgb 13.5 (12.0-16.0) g/dL Hct 41.6 (36.0-48.0) % MCV 94.3 (81.0-99.0) fL MCH 30.6 (26.7-34.0) pg MCHC 32.5 (29.9-35.2) g/dL RDW 15.1 H (11.0-15.0) % Plt Count 546 H (150-450) 10^3/uL MPV 9.3 L (9.5-13.5) fL Neut % (Auto) 59.8 (43.0-75.0) % Lymph % (Auto) 28.7 (20.5-60.0) % [place] % (Auto) 7.5 (1.7-12.0) % Eos % (Auto) 3.0 (0.9-7.0) % Baso % (Auto) 0.8 (0.2-2.0) % Neut # (Auto) 7.7 H (1.4-6.5) 10^3/uL Lymph # (Auto) 3.7 (1.2-3.8) 10^3/uL [place] # (Auto) 1.0 H (0.3-0.8) 10^3/uL Eos # (Auto) 0.4 (0.0-0.7) 10^3/uL Baso # (Auto) 0.1 (0.0-0.1) 10^3/uL Abs Immat Gran (auto) 0.02 (0.00-0.03) 10^3/uL Imm/Tot Granulo (auto) 0.2 (0.0-0.5) % Sodium 138 (136-145) mmol/L Potassium 4.0 (3.5-5.1) mmol/L Chloride 102 (98-107) mmol/L Carbon Dioxide 30.1 (21.0-32.0) mmol/L Anion Gap 9.9 BUN 10.0 (7.0-18.0) mg/dL Creatinine 0.80 (0.55-1.02) mg/dL Est GFR ( Amer) >60 (>=60 mL/min/1.73m^2) Est GFR (Non-Af Amer) >60 (>=60 mL/min/1.73m^2) BUN/Creatinine Ratio 12.5 Glucose 98 (74-106) mg/dL Calcium 9.2 (8.5-10.1) mg/dL Total Bilirubin 0.2 (0.2-1.0) mg/dL AST 26 (15-37) U/L ALT 28 (14-59) U/L Alkaline Phosphatase 99 (46-116) U/L Troponin I High Sens 4.5 (4.0-51.3) pg/mL Total Protein 7.3 (6.4-8.2) g/dL Albumin 3.2 L (3.4-5.0) g/dL Globulin 4.1 g/dL Albumin/Globulin Ratio 0.8 Urine Color Lt. yellow (YELLOW) Urine Clarity Clear (CLEAR) Urine pH 5.5 (5.0-9.0) Ur Specific [place] <=1.005 A (1.005-1.025) Urine Protein Negative (NEG/TRACE) mg/dL Urine Glucose (UA) Negative (NEGATIVE) mg/dL Urine Ketones Negative (NEGATIVE) mg/dL Urine Occult Blood Small A (NEGATIVE) Urine Nitrite Negative (NEGATIVE) Urine Bilirubin Negative (NEGATIVE) Urine Urobilinogen 0.2 (0.2-1.0) EU/dL Ur Leukocyte Esterase Small A (NEGATIVE) Urine RBC 2-5 A (0-2) #/HPF Urine WBC 0-2 A (NONE SEEN) #/HPF Ur Squamous Epith Cells Moderate A (NONE/RARE) #/LPF Urine Crystals None seen (None Seen) #/HPF Urine Bacteria Trace A (NONE SEEN) #/HPF Urine Casts None seen (NONE SEEN) #/LPF Urine Mucus Trace A (NONE SEEN) Urine HCG, Qual Negative (NEGATIVE) Imaging Data CT scan - abdomen: Radiologist's impression: ITS Impressions Abdomen/Pelvis CT 07/01/24 13:23 IMPRESSION: 11 cm right adnexal cystic lesion, significantly increased in size from the prior exam Electronically authenticated by: ESTELLA WHITEHEAD Date: 07/01/2024 14:27 Transvaginal US 07/01/24 15:01
--- NOTE | 2024-07-01 15:01 | US_ITS ---
The [address] [address] Patient Name: ANGELES ORTIZ MRN: [id number] date: 1985 Sex: F Assigned Patient Location: ER Current Patient Location: Accession/Order Number: [id number] Exam Date: 07/01/2024 15:59 Report Date: 07/01/2024 18:42 At the request of: CHARLIE GRIDER Procedure: US pelvis transvaginal EXAM: US pelvis transvaginal HISTORY: abdominal pain COMPARISON: 09/14/2023 TECHNIQUE: Transvaginal and transabdominal imaging was performed utilizing grayscale, color Doppler, and spectral imaging. LMP: Unknown. : 2 Para: 2 FINDINGS: Anteroverted uterus. Uterine volume: 10 x 4.1 x 5.2 cm = 110.6 mL. Intrauterine device is noted in the fundus. Uterus description: Homogeneous echotexture without evidence of fibroid. Endometrial thickness: 12 mm. (Normal premenopausal thickness is less than 15 mm. Normal postmenopausal thickness is less than 5 mm) Endometrial description: No abnormality demonstrated. Right ovary: Measurements: 11.7 x 7.3 x 10.2 cm = 455 mL. Description: There is a septated anechoic structure measuring 10.7 x 7 x 9.6 cm with internal echo, likely representing cyst with hemorrhage/debris. Finding increased in size compared to the prior study (previously was 5.5 x 4.2 x 3.47). Vasculature: Normal color waveform. Left ovary: Not seen. Adnexa: Unremarkable. Cul-de-sac: No free fluid. Additional findings: None. US/US pelvis transvaginal IMPRESSION: Interval increase in size of complex cystic structure without vascular flow in the right ovary, measuring 10.7 x 7 x 9.6 cm. Pelvic MRI with contrast is recommended for better evaluation. Electronically authenticated by: MAT WOMACK Date: 07/01/2024 18:42
[2024-07-01] MEDS: KETOROLAC TROMETHAMINE 30 MG/ML VIAL IVP (15:18)
[2024-07-01 15:23] LABS: Bilirubin Urine NEGATIVE (NEGATIVE); Blood Urine SMALL (NEGATIVE); Clarity Urine CLEAR (CLEAR); Color Urine LT. YELLOW (YELLOW); Glucose Urine UA NEGATIVE (NEGATIVE); Ketones Urine NEGATIVE (NEGATIVE); Leukocyte Esterase Urine SMALL (NEGATIVE); Nitrite Urine NEGATIVE (NEGATIVE); Protein Urine NEGATIVE (NEG/TRACE); Specific Gravity Urine <=1.005 (1.005-1.025); Urobilinogen Urine 0.2 EU/dL (0.2-1.0); pH Urine 5.5 (5.0-9.0)
[2024-07-01 15:24] LABS: HCG Qualitative Urine* NEGATIVE (NEGATIVE); Internal Control Within Normal Limits
[2024-07-01 15:34] LABS: Bacteria Urine TRACE #/HPF (NONE SEEN); Cast Seen? NONE SEEN #/LPF (NONE SEEN); Crystals Seen? None Seen #/HPF (None Seen); Mucus Urine TRACE (NONE SEEN); Squamous Epithelial Cell Urine MODERATE #/LPF (NONE/RARE); WBC Urine 0-2 #/HPF (NONE SEEN)
== END 2024-07-01 17:20 | disposition home or self-care (01) ==
PROVIDERS: Physician Assistant; Emergency Provider Emergency Medicine; PCP Nurse Practitioner Family
DX: K29.70 Gastritis, unspecified, without bleeding (principal); N83.201 Unspecified ovarian cyst, right side; Z98.84 Bariatric surgery status; Z90.49 Acquired absence of other specified parts of digestive tract; Z90.81 Acquired absence of spleen; Z87.891 Personal history of nicotine dependence; E66.9 Obesity, unspecified
CPT/HCPCS: 36415; 74177; 76830; 80053; 81001; 84484; 84703; 85025; 96361; 96374; 96375; 99285; J1885; J2405; Q9967

== ENCOUNTER 2024-07-16 15:13 | Emergency (ER) | payer MEDICAID, SELFPAY ==
[2024-07-16 15:16] VITALS: PULSE 88; TEMP 36.5; O2SAT 97
[2024-07-16 15:19] VITALS: BP 138/74
--- OUTSIDE RECORDS SUMMARY | 2024-07-16 15:20 | XMS_ITS | CCD ---
Author Organization [facility] Care Team Providers Care Dialysis Rn Name Role Phone ROSAURA ESTRADA Unavailable Unavailable HOLA ELIZABET Primary Care Unavailable CHANA THOMAS Referring Unavailable Elizabet Simental Primary Care Provider [phone] CHANA THOMAS Referring Unavailable RUMNORAHLAZen, ELIZABET Primary Care Unavailable KYLAH VARGAS Admitting Unavailable KYLAH VARGAS Attending Unavailable KYLAH VARGAS Referring Unavailable RUMSCHLAG, ELIZABET Primary Care Unavailable Rumschlag Elizabet TRINH Primary Care Provider Rosaura Estrada CNP Primary Care Provider [place] Unavailable Celsa Argueta Unavailable Mary Blakely Unavailable Estella Nguyen Unavailable Bambi Gonzalez Unavailable Christa Tyler Unavailable Rosaura Estrada CNP Primary Care Provider [phone] Rob Garcia Unavailable Rosaura Estrada CNP Primary Care Provider NON STAFF Primary Care Provider UnavailROBERT Jo Attending Provider Elizabet Simental Primary Care Provider Elizabet Simental Primary Care Provider DR TELLO ALFARO Attending Unavailable MISC, DR DOCTOR Admitting Unavailable [facility] Primary Care Unavailable MISC, DR JAVED Attending Unavailable MISC, DR JAVED Consulting Unavailable MISC, DR JAVED Admitting Unavailable [facility] Primary Care Unavailable WEST, DR ESTELLA Steiner Consulting Unavailable REQUEST, DR GUTIÉRREZ LISTED Admitting Unavaila ble REQUEST, DR GUTIÉRREZ LISTED Attending Unavaila ble [facility] Primary Care Unavailable MISC, DR JAVED Consulting Unavailable MISC, DR JAVED Consulting Unavailable MISC, DR JAVED Admitting Unavailable [facility] Primary Care Unavailable MISC, DR JAVED Attending Unavailable Darrel Nichols Consulting Unavailable RUMSCHLAG, ELIZABET Consulting Unavailable MISC, DR JAVED Attending Unavailable MISC, DR JAVED Admitting Unavailable [facility] Primary Care Unavailable HAY ., DR STEPHENS Admitting Unavailable HAY ., DR STEPHENS Attending Unavailable [facility] Primary Care Unavailable GRECHNANETTE ., MICHELLE MCGINNIS Consulting Unavailabl e ESTELLA ALVES Consulting Unavailable GRECHNANETTE ., MICHELLE MCGINNIS Consulting Unavailabl e BERENICE BAKER Admitting Unavailable [facility] Primary Care Unavailable BERENICE BAKER Attending Unavailable MANPREET TORRES Consulting Unavailable JARON FABIAN Admitting Unavailable DENYS ., MR JEFF Consulting Unavailable JARON FABIAN Attending Unavailable [facility] Primary Care Unavailable Linda South Unavailable Christa [...] Provider Rumschlag DO, Elizabet Primary Care Provider Kromer, Shaylee Unavailable Unavailable RUMSCHLAG, ELIZABET Primary Care Unavailable JOE GRANDA Referring Unavailable EARL MCGEE Attending Unavailable RUMSCHLAG, ELIZABET Primary Care Unavailable GUTNICK, JOE R Referring Unavailable KARON MONSIVAIS Attending Unavailable RUMSCHLAG, ELIZABET Primary Care Unavailable JAYSHREE HUFFMAN Attending Unavailable RUMSCHLAG, ELIZABET Primary Care Unavailable AMINA NIETO Attending Unavailable RUMSCHLAG, ELIZABET Primary Care Unavailable KARON MONSIVAIS Attending Unavailable RUMSCHLAG, ELIZABET Primary Care Unavailable [...] Referring Unavailable RUMSCHLAG, ELIZABET Primary Care Unavailable GUTRODOLFO, JOE R Referring Unavailable JAYSHREE HUFFMAN Attending Unavailable RUMSCHLAG, ELIZABET Primary Care Unavailable GUTNICK, JOE R Referring Unavailable MARY COLBERT Attending Unavailable RUMSCHLAG, ELIZABET Primary Care Unavailable GUTNICK, JOE R Referring Unavailable CHRISTOPHER SANTIAGO Attending Unavailable RUMSCHLAG, ELIZABET Primary Care Unavailable GUTNICK, JOE R Referring Unavailable JAYSHREE HUFFMAN Attending Unavailable RUMSCHLAG, ELIZABET Primary Care Unavailable GUTNICK, JOE R Referring Unavailable SAYRAMARY Attending Unavailable RUMSCHLAG, ELIZABET Primary Care Unavailable GUTNICK, JOE R Referring Unavailable GUTNICK, JOE R Attending Unavailable RUMSCHLAG, ELIZABET Primary Care Unavailable SELF Referring Unavailable AMINA NIETO Attending Unavailable JAMIE HARLEY Attending Unavailable JAMIE HARLEY Attending Unavailable APLINGBUSHRA Attending Unavailable APLINGBUSHRA Referring Unavailable OTILIO JEFFERSON Attending Unavailable APLBUSHRA ROSAS Attending Unavailable OTILIO JEFFERSON Attending Unavailable APLBUSHRA ROSAS Attending Unavailable APLINGBUSHRA Attending Unavailable SHERRY CUELLAR Attending Unavailable AASHISH, ZOHRA Referring Unavailable JAMIE HARLEY Attending Unavailable PRINCE COLINDRES Attending Unavailable AASHISH, ZOHRA Referring Unavailable SHERRY CUELLAR Attending Unavailable AASHISH, ZOHRA Referring Unavailable PRINCE COLINDRES Attending Unavailable ALVARADOERHOLSAMEER, ZOHRA Referring Unavailable JENS, PRINCE Attending Unavailable MYERHOLTZ, ZOHRA Referring Unavailable JENS, PRINCE Attending Unavailable MYERHOLTZ, OZHRA Referring Unavailable APLING, BUSHRA Mart Attending Unavailable SHERRY CUELLAR Attending Unavailable MYERHOLTZ, ZOHRA Referring Unavailable JENS, PRINCE Attending Unavailable MYERHOLTZ, ZOHRA Referring Unavailable APLING, BUSHRA Mart Attending Unavailable APLING, BUSHRA Mart Referring Unavailable Myerholtz, Zohra K Primary Care Unavailab le Knox, Rohini M Attending Unavailable Knox, Rohini M Admitting Unavailable Knox, Rohini M Attending Unavailable Knox, Rohini M Admitting Unavailable Myerholtz, Zohra K Primary Care Unavailab le [place] KRYS, Rohini Schmidt Attending U navailable CAROLYN, OTILIO Naqvi Referring Unavailable SERVICES, [facility] Unava ilable [place], OTILIO Naqvi Referring Unavailable SERVICES, [facility] Unava ilable CAROLYN, OTILIO Naqvi Attending Unavailable CAROLYN, OTILIO Naqvi Referring Unavailable SERVICES, [facility] Unava ilable [place], OTILIO Naqvi Admitting Unavailable CAROLYN, OTILIO Naqvi Attending Unavailable CAROLYN, OTILIO Naqvi Referring Unavailable SERVICES, [facility] Unava ilable YOSHI DELGADO Attending Unavailable SERVICES, [facility] Unava ilable [place], OTILIO Naqvi Admitting Unavailable [place], OTILIO Naqvi Attending Unavailable CAROLYN, OTILIO Naqvi Referring Unavailable SERVICES, [facility] Unava ilable YOSHI DELGADO Attending Unavailable SERVICES, [facility] Unava ilable SERVICES, [facility] Unava ilable SERVICES, [facility] Unava ilable LYNDON NORMAN Attending Unavailable SERVICES, [facility] Unava ilable ANGELITA SANTACRUZ Attending Unavailable Allergies Allergy Classification Reported Allergen(s) Allergy Type Date of Onset Reaction(s) Facility (2 sources) Adhesive Tape Propensity to adverse reactions to drug 10-11-19 17 Rash [place] (6 sources) Penicillins; Translations: [PENICILLINS] Propensity to adverse reactions to drug 05-29-20 17 Hives, Rash [place] (20 sources) traMADol; Translations: [Ultram TABS] Drug Allergy 08-28-19 13 Hives, rash, Itching [place] (20 sources) Amoxicillin-Pot Clavulanate; Translations: [AMOXICILLIN-POT CLAVULANATE] Propensity to adverse reactions to drug 10-11-19 17 Diarrhea, Other (See Comments) [place] (20 sources) Cephalexin; Translations: [CEPHALEXIN] Drug Allergy 05-06-20 Rash, Itching [facility] (1 source) *Adhesive Tape Propensity to adverse reactions 11-10-19 07 [facility] (7 sources) Penicillins Drug Allergy 05-06-20 19 Hives [facility] (20 sources) traMADol; Translations: [TRAMADOL HCL] Drug Allergy 03-13-20 15 Itching [facility] (20 sources) Adhes. Ytch-Zqiy-Bnjgtjz onium; Translations: [ADHES. TPQL-JPLE-ZZBFVVI ONIUM] Drug Allergy 03-13-20 15 Rash [facility] (20 sources) Adhesive Tape-Silicones; Translations: [ADHESIVE TAPE-SILICONES] Drug Allergy 05-06-[address] [facility] (9 sources) Amoxicillin / Clavulanate; Translations: [Augmentin TABS] Drug Allergy stomach upset BN-KMDNZ-Rewdlf r 206A [facility] Work Phone: (1 source) Cephalexin; Translations: [Keflex TABS] Drug Allergy NI-JJPTH-Oyrcbv r 206A [facility] Work Phone: (1 source) Penicillins; Translations: [Penicillins] Allergy to drug (finding) BS-KDRJN-Euhqex r 206A [facility] Work Phone: (11 sources) Adhesive agent; Translations: [Adhesive] Propensity to adverse reactions 11-10-19 07 rash,blisterin g, [facility] (8 sources) Cephalexin; Translations: [Keflex] Drug Allergy itchy [facility] (9 sources) Doxycycline Drug Allergy stomach upset [facility] Other (9 sources) penicillAMINE Drug Allergy rash [facility] Other (9 sources) Penicillin G Drug Allergy Unknown [facility] Other (20 sources) Penicillins Drug Allergy 05-06-20 19 Hives [facility] (2 sources) Amoxicillin / Clavulanate Drug Allergy 12-18-19 17 stomach upset [facility] (1 source) Penicillins Drug allergy (disorder) [facility] (1 source) traMADol Drug Allergy 08-28-19 13 [facility] (20 sources) Penicillins Drug Allergy 05-29-20 17 Hives, Rash [facility] (20 sources) Wound Dressing Adhesive Drug Allergy 03-13-20 15 Rash [facility] Healthcare Medications Current Medications Medication Drug Class(es) [...] at bedtime. biotin 10 mg oral tablet (20 sources) biotin 10 MG tablet Take 10 [...] hours. calcium carbonate 500 mg oral tablet (20 sources) take 1 tablet by mouth in [...] 11/02/2023 Active cholecalciferol (Vitamin D-3) 1.25 MG (11056 UT) capsule Active 1 ml diphenhydrAMINE hydrochloride 50 mg/ml cartridge (1 source) Histamine-1 Receptor Antagonist Start: 04-06-2020 End: 04-06-2020 diphenhydrAMINE (BENADRYL) injection 12.5 mg docusate sodium 50 mg / sennosides, retirement 8.6 mg oral tablet (11 sources) Start: [...] unless otherwise advised. [facility] DULoxetine 60 mg delayed release oral capsule (20 sources) Serotonin and Norepinephrine Reuptake Inhibitor Start: take 1 capsule by mouth twice daily DULoxetine [address] Particles capsule DR Take 60 mg by mouth 2 times daily. 0 04/25/2021 Active Start: 07-27-2019 take 1 capsule by mo [facility] once daily DULoxetine (CYMBALTA) 60 MG extended release capsule TAKE 1 CAPSULE BY MOUTH DAILY 0 07/27/2019 Active Cymbalta Active Comment on above: Take 60 mg by mouth once daily. eletriptan 20 mg oral tablet (20 sources) Serotonin-1b and Serotonin-1d Receptor Agonist eletriptan (Relpax) 20 MG tablet Take 20 mg by mouth 1 (one) time if needed for migraine May repeat in 2 hours if unresolved. Do not exceed 80 mg in 24 hours. Max 3 days a week Active esomeprazole 20 mg delayed release oral capsule (20 sources) Proton Pump Inhibitor esomeprazo le (NexIUM) [...] Start: 11-02-2023 take 1 tablet by mouth in the morning ferrous sulfate 325 (65 Fe) MG tablet Take 325 mg by mouth in the morning. 11/02/2023 Active Start: 11-02-2023 take 1 tablet by claudia th once daily ferrous sulfate 325 mg (65 [...] 5 mg hydroCHLOROthiazide 12.5 mg oral tablet (20 sources) Thiazide Diuretic take 1 tablet by mouth once daily in the morning hydroCHLOROthiazide (HYDRODiuril) 12.5 MG tablet TAKE 1 TABLET BY MOUTH IN THE MORNING EVERY DAY Active hydrOXYzine pamoate 50 mg oral capsule (20 sources) Antihistamine Start : 07-08 take 1 capsule by mouth at bedtime as needed hydrOXYzine pamoate (Vistaril) 50 MG capsule TAKE 1 CAPSULE BY MOUTH AT BEDTIME NEEDED oral at bed time as needed for 90 days 07/08/2023 Active End: 03-10-2023 take 1 capsule [...] 100 mg by mouth every morning. levonorgestrel 0.438363 mg/hr intrauterine system (20 sources) Progestin, Progestin-containing Intrauterine Device Start: Levonorgestrel intrauterine device Levonorgestrel ( Mirena, 52 MG,) 20 MCG/DAY intrauterine device 1 each by Intrauterine route Active levonorgestrel ( MIRENA) 21 mcg/24 hours (8 [...] once daily. LORazepam 0.5 mg oral tablet (6 sources) Benzodiazepine Start: LORazepam (Ativan) 0.5 MG tablet Indications: Internal [...] release oral tablet (20 sources) Biguanide Start: take 1 tablet by mouth every twenty-four hours at mealtime metFORMIN XR (Glucophage-XR) 500 MG 24 hr tablet Take 500 mg by mouth in the evening. Take with meals 11/03/2023 Active Start: 11-03-2023 End: 03-04-2024 take 1 tablet [...] Take 1 tablet by claudia three times a day as needed for up to 10 days. montelukast 10 mg oral tablet (20 sources) Leukotriene Receptor Antagonist montelukast (Singulair) 10 MG tablet 1 (one) time each day at the same time Active Comment on above: Take 10 mg by mouth daily at bedtime. Multiple Vitamin (Daily-Asndor) tablet (1 source) Start: 04-25-2021 Multiple Vitamin (Daily-Sandor) tablet 1 tablet daily. 0 04/25/2021 Active Multiple Vitamin (Multi Vitamin) tablet (20 sources) Multiple Vitamin (Multi Vitamin) tablet 1 (one) time each day at the same time Active Multiple Vitamins-Minerals (Bariatric Multivitamins/Iron) capsule (20 sources) Multiple Vitamins-Minerals (Bariatric Multivitamins/Iron ) capsule [...] on above: TAKE 1 CAPSULE BY MO UTH 30 MINUTES BEFORE morning meal Take 1 capsule by mo uth two times a day. Take 1 capsule by mo uth once daily. ondansetron 4 mg disintegrating oral tablet (20 sources) Serotonin-3 Receptor Antagonist Start: 08-11-2023 End: 08-17-2023 ondansetron ODT (Zofran-ODT) 4 MG disintegrating tablet 08/17/2023 Active Start: 07-20-2023 take 1 [...] oral tablet (20 sources) Anti-epileptic Agent Start: End: 4 take 1.5 tablets by mouth at bedtime OXcarbazepine (Trileptal) 300 MG tablet Indications: Seizure (CMS/HCC) Take 1.5 tablets (450 mg) by mouth at bedtime 45 tablet 05/05/2024 06/04/2024 Active Start: 07-08-2023 take 1 tablet by claudia th once daily at bedtime OXcarbazepine (TRILEPTAL) 300 [...] needed. rizatriptan 10 mg disintegrating oral tablet (20 sources) Serotonin-1b and Serotonin-1d Receptor Agonist Start: 4 rizatriptan SOFTWARE SALES EXECUTIVE (Maxalt-SOFTWARE SALES EXECUTIVE) 10 MG disintegrating tablet DISSOLVE 1 TABLET [...] Sep, Active SUMAtriptan 50 mg oral tablet (20 sources) Serotonin-1b and Serotonin-1d Receptor Agonist SUMAtriptan [...] Start: 2023 take 1 capsule by mouth in the morning Zinc Acetate 25 MG capsule Take 25 mg by mouth in the morning. 11/02/2023 Active Completed/Discontinued Medications Medication Drug Class(es) Dates Sig (Normalized) Sig (Original) acetaminophen 325 mg / HYDROcodone bitartrate 5 mg oral tablet (3 sources) Opioid Agonist Start: 03-07-2024 End: 03-12-2024 take 1 tablet by mouth every six hours for pain HYDROcodone-aceta minophen ([place]) 5-325 MG tablet Indications: Pelvic pain , Right ovarian cyst Take 1 tablet by mouth every 6 (six) hours if needed for severe pain for up to 5 days 20 tablet 03/07/2024 03/12/2024 calcium citrate 1500 mg / cholecalciferol 250 [...] Molecular Weight Heparin Start: 08-11-19 End: 09-10-19 24 inject 0.6 mL by [...] 1 ml methylPREDNISolone acetate 40 mg/ml injection (13 sources) Corticosteroid Start : 06-01 End: 06-01 methylPREDNISolone acetate (DEPO-Medrol) injection 40 mg Start: 06-01-2024 End: 06-01-2024 40 mg, Intra-articular, Once PRN Procedure, Starting on Thu06/01/24 at 1114, For 1 dose Start: 04-27-2024 End: 04-27-2024 methylPREDNISolone acetate (DEPO-Medrol) injection 40 mg Start: [...] (20 sources) Proton Pump Inhibitor Start: 01-16-20 23 End: 03-10-20 23 take 1 tablet by mouth once daily [...] once daily. Take 1 tablet by claudia once daily. topiramate 100 mg oral tablet [...] Date Documented Da te Episodic/Chronic Abdominal pain (14 sources) Pain in pelvis; Translations: [Pelvic and perineal pain] Onset: 5 Episodic Acute and chronic tonsillitis (20 sources) [...] disease] Onset: 6 Resolved: 2 02-17-2020 Chronic Gastritis and duodenitis (1 source) Acute gastritis without bleeding; Translations: [Acute gastritis without bleeding] Onset: 5 Episodic Headache; including migraine (20 sources) Refractory [...] [Vitamin D deficiency, unspecified] 11-02-2023 Chronic Osteoarthritis (17 sources) Degenerative joint disease of shoulder region; Translations: [Primary osteoarthritis, right shoulder] 04-12-2024 Chronic Other aftercare (1 source) 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; Translations: [OTH ORACLE DATA 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 CURRENT DRUG THERAPY] Onset: 3 Episodic Other [...] Onset: 4 Episodic Other non-traumatic joint disorders (4 sources) Arthritis of right knee 04-13-2024 Chronic [...] Streptococcal sore throat; Translations: [Streptococcal pharyngitis] Episodic Ovarian cyst (2 sources) Cyst of right ovary; Translations: [Unspecified ovarian cyst, right side] 03-07-2024 Episodic Residual codes; unclassified (20 sources) Obstructive [...] UNSPECIFIED] Onset: 3 Chronic Residual codes; unclassified (20 sources) Sleep apnea; Translations: [Sleep apnea, unspecified] [...] Resolved: 11-13-2021 Episodic Other connective tissue disease (20 sources) Muscle pain; Translations: [Myalgia, unspecified site] Onset: 11-09-2023 11-09-2023 Episodic Other connective tissue disease (20 sources) Spasm; Translations: [Other muscle spasm] Onset: [...] joint, lower leg] Onset: 01-17-2017 10-13-2023 Episodic Other non-traumatic joint disorders (1 source) Knee pain Onset: 04-06-2024 Episodic Residual codes; unclassified (1 source) Acquired absence of stomach [part of]; Translations: [ACQUIRED ABSENCE OF STOMACH] Onset: 04-14-2022 Episodic Residual codes; unclassified (20 sources) Insomnia; Translations: [Insomnia, unspecified] Onset: 11-09-2023 [...] Test Name Value Interpretation Reference Range Facility CBC AND AUTO DIFFon 07-07-19 25 ABSOLUTE BASOPHIL 0.0 X10E9/L Normal 0.0-0.2 [facility] Comment on above: Performed By: #### CMP, , CBCA, 3 040-3 #### [facility] ([id number]) [address] [place] [address] 10281 ABSOLUTE NEUTROPHIL 7.0 X10E9/L High 1.5-6.6 [facility] Comment on above: Performed By: #### CMP, , CBCA, 3 040-3 #### [facility] ([id number]) [address] [place] [address] 49334 Basophils/100 WBC (Bld) 0.2 % Normal [facility] Comment on above: Performed By: #### CMP, , CBCA, 3 040-3 #### [facility] ([id number]) [address] [place] [address] 23743 Eosinophils (Bld) [#/Vol] 0.4 10*3/uL Normal 0.0-0.4 [facility] Comment on above: Performed By: #### CMP, , CBCA, 3 040-3 #### [facility] ([id number]) [address] [place] [address] 30679 Eosinophils/100 WBC (Bld) 3.5 % Normal [facility] Comment on above: Performed By: #### CMP, , CBCA, 3 040-3 #### [facility] ([id number]) [address] [place] [address] 77392 Erythrocyte distribution width (RBC) [Ratio] 15.4 % High 11.5-15.0 [facility] Comment on above: Performed By: #### BRIA, , CBCA, 3 040-3 #### [facility] ([id number]) [address] [place] [address] 82836 Hematocrit (Bld) [Volume fraction] 41.3 % Normal 35-47 [facility] Comment on above: Performed By: #### BRIA, , CBCA, 3 040-3 #### [facility] ([id number]) [address] [place] [address] 21149 Hemoglobin (Bld) [Mass/Vol] 13.7 g/dL Normal 11.7-15.5 [facility] Comment on above: Performed By: #### BRIA, , CBCA, 3 040-3 #### [facility] ([id number]) [address] [place] [address] 59369 Lymphocytes (Bld) [#/Vol] 4.1 10*3/uL High 1.0-3.5 [facility] Comment on above: Performed By: #### CMP, , CBCA, 3 040-3 #### [facility] ([id number]) [address] [place] [address] 38752 Lymphocytes/100 WBC (Bld) 32.6 % Normal [facility] Comment on above: Performed By: #### CMP, , CBCA, 3 040-3 #### [facility] ([id number]) [address] [place] [address] 84984 MCH (RBC) [Entitic mass] 30.5 pg Normal 27-34 [facility] Comment on above: Performed By: #### BRIA, , CBCA, 3 040-3 #### [facility] ([id number]) [address] [place] [address] 92757 MCHC (RBC) [Mass/Vol] 33.1 g/dL Normal 32-36 [facility] Comment on above: Performed By: #### BRIA, , CBCA, 3 040-3 #### [facility] ([id number]) [address] [place] [address] 10695 MCV (RBC) [Entitic vol] 92 fL Normal 80-100 [facility] Comment on above: Performed By: #### BRIA, , CBCA, 3 040-3 #### [facility] ([id number]) [address] [place] [address] 00033 Monocytes (Bld) [#/Vol] 1.0 10*3/uL High 0-0.9 [facility] Comment on above: Performed By: #### BRIA, , CBCA, 3 040-3 #### [facility] ([id number]) [address] [place] [address] 74383 Monocytes/100 WBC (Bld) 8.3 % Normal [facility] Comment on above: Performed By: #### BRIA, , CBCA, 3 040-3 #### [facility] ([id number]) [address] [place] [address] 37181 Neutrophils/100 WBC (Bld) 55.4 % Normal [facility] Comment on above: Performed By: #### BRIA, , CBCA, 3 040-3 #### [facility] ([id number]) [address] [place] [address] 40975 Platelet mean volume (Bld) [Entitic vol] 7.7 fL Normal 7-12 [facility] Comment on above: Performed By: #### CMP, , CBCA, 3 040-3 #### [facility] ([id number]) [address] [place] [address] 40211 Platelets (Bld) [#/Vol] 572 10*3/uL High 150-450 [facility] Comment on above: Performed By: #### BRIA, , CBCA, 3 040-3 #### [facility] ([id number]) [address] [place] [address] 17822 RBC COUNT 4.49 X10E12/L Normal 3.80-5.20 [facility] Comment on above: Performed By: #### BRIA, , CBCA, 3 040-3 #### [facility] ([id number]) [address] [place] [address] 76874 WBC (Bld) [#/Vol] 12.6 10*3/uL High 4.0-11.0 [facility] Comment on above: Performed By: #### BRIA, , CBCA, 3 040-3 #### [facility] ([id number]) [address] [place] [address] 96185 COMPREHENSIVE METABOLIC PANE Micah 07-07-2024 Albumin [Mass/Vol] 3.8 g/dL Normal 3.2-5.3 [facility] Comment on above: Performed By: #### CMP, 75565-4, CBCA, 3 040-3 #### [facility] ([id number]) [address] [place] [address] 25660 ALP [Catalytic activity/Vol] 87 U/L Normal 39-130 [facility] Comment on above: Performed By: #### BRIA, , CBCA, 3 040-3 #### [facility] ([id number]) [address] [place] [address] 97510 ALT [Catalytic activity/Vol] 35 U/L High 0-31 [facility] Comment on above: Performed By: #### BRIA, , CBCA, 3 040-3 #### [facility] ([id number]) [address] [place] [address] 96626 Anion gap [Moles/Vol] 12 mmol/L Normal 5-15 [facility] Comment on above: Performed By: #### BRIA, , CBCA, 3 040-3 #### [facility] ([id number]) [address] [place] [address] 95294 AST [Catalytic activity/Vol] 46 U/L High 0-41 [facility] Comment on above: Performed By: #### BRIA, , CBCA, 3 040-3 #### [facility] ([id number]) [address] [place] [address] [place] [address] Bilirubin [Mass/Vol] 0.5 mg/dL Normal 0.3-1.2 [facility] Comment on above: Performed By: #### BRIA, , CBCA, 3 040-3 #### [facility] ([id number]) [address] [place] [address] 63402 Calcium [Mass/Vol] 9.2 mg/dL Normal 8.5-10.5 [facility] Comment on above: Performed By: #### BRIA, , CBCA, 3 040-3 #### [facility] ([id number]) [address] [place] [address] 29293 Chloride [Moles/Vol] 99 mmol/L Normal 98-109 [facility] Comment on above: Performed By: #### BRIA, , CBCA, 3 040-3 #### [facility] ([id number]) [address] [place] [address] 33141 CO2 [Moles/Vol] 25 mmol/L Normal 22-32 [facility] Comment on above: Performed By: #### BRIA, , CBCA, 3 040-3 #### [facility] ([id number]) [address] [place] [address] 98803 Creatinine [Mass/Vol] 0.78 mg/dL Normal 0.40-1.00 [facility] Comment on above: Result Comment: METHOD TRACEABLE TO IDMS STANDARD Performed By: #### C MARY JANE, , CBCA, 3040-3 #### [facility] ([id number]) [address] [place] [address]4576 eGFR (CKD-EPI) NON-RACE DEPENDENT >90 Normal >59 [facility] Comment on above: Result Comment: Reported eGFR is based on the CKD-EPI 2020 equation that does not use a race coefficient. Performed By: #### C MARY JANE, , CBCA, 3040-3 #### [facility] ([id number]) [address] [place] [address] 94850 Glucose [Mass/Vol] 103 mg/dL High 65-99 [facility] Comment on above: Performed By: #### BRIA, , CBCA, 3 040-3 #### [facility] ([id number]) [address] [place] [address] 99568 Potassium [Moles/Vol] 4.1 mmol/L Normal 3.5-5.0 [facility] Comment on above: Performed By: #### BRIA, , CBCA, 3 040-3 #### [facility] ([id number]) [address] [place] [address] 89421 Protein [Mass/Vol] 7.5 g/dL Normal 6.0-8.0 [facility] Comment on above: Performed By: #### CMP, 71549-1, CBCA, 3 040-3 #### [facility] ([id number]) [address] [place] [address] Sodium [Moles/Vol] 136 mmol/L Normal 134-146 [facility] Comment on above: Performed By: #### CMP, 67729-1, CBCA, 3 040-3 #### [facility] ([id number]) [address] [place] [address] 83049 Urea nitrogen [Mass/Vol] 8 mg/dL Normal 5-23 [facility] Comment on above: Performed By: #### CMP, 09659-7, CBCA, 3 040-3 #### [facility] ([id number]) [address] [place] [address] ABDOMEN AND PELVIS W CONT on 07-07-2024 CT ABDOMEN AND PELVIS W CONT CT ABDOMEN AND PELVIS W CONT Contrast-enhanced CT of the abdomen, and pelvis dated 07/07/2024. Indication: Abdominal pain. Comparison: CT abdomen pelvis from 09/10/2017 . Technique: Axial images of the abdomen and pelvis were obtained after the injection of intravenous nonionic iodinated contrast. 2-D reformats were obtained. All CT scans at this facility use dose modulation, iterative reconstruction, and/or weight based dosing when appropriate to reduce radiation dose to as low as reasonably achievable. Findings: Overall evaluation is markedly limited due to the patient's habitus residing outside of the field of view causing artifact. The visualized lung bases are unremarkable. Presumed left upper quadrant residual splenic tissue. The gallbladder is surgically absent. No overt interval hepatic mass. The pancreas and adrenal glands appear unremarkable. Left upper quadrant postsurgical changes. The kidneys enhance symmetrically and are without hydronephrosis. Urinary bladder is underdistended therefore incompletely evaluated. No abdominal aortic aneurysm. No lymphadenopathy is noted in the abdomen or pelvis. The appendix is unremarkable. The intestines are without obstruction. 7.3 cm right adnexal lesion. Intrauterine device is noted. No free fluid or free air. Severe lumbosacral degenerative disc disease. No acute or grossly suspicious osseous abnormality. Impression: 1. Overall evaluation is markedly limited as above due to patient's habitus and being outside of the field of view causing artifact however within these limits no acute intra-abdominal/pelvic process identified. 2. 7.3 cm right adnexal lesion for which a pelvic ultrasound is recommended for more complete evaluation. Finalized by Karen Mullen MD on 07/07/2024 8:25 PM Normal [facility] HCG ( test) Ql (U)o n 07-07-2024 Beta HCG ( test) Ql (U) Negative Normal NEG [facility] Comment on above: Performed By: #### 2106-3 #### [facility] ([id number]) [address] [place] [address] 22869 LIPASEon 07-07-2024 Lipase [Catalytic activity/Vol] 25 U/L Normal 17-40 [facility] Comment on above: Performed By: #### CMP, 74537-8, CBCA, 3 040-3 #### [facility] ([id number]) [address] [place] [address] 35022 MAGNESIUMon 07-07-2024 Magnesium [Mass/Vol] 1.8 mg/dL Normal 1.8-2.6 [facility] Comment on above: Performed By: #### CMP, 93558-0, CBCA, 3 040-3 #### [facility] ([id number]) [address] [place] [address] 79597 URN MACROSCOPIC NURon 2024 BILIRUBIN PRIMO Negative Normal NEG [facility] Comment on above: Performed By: #### NUM #### [facility] ([id number]) [address] [place] [address] 67809 BLOOD/HGB PRIMO Trace Abnormal NEG [facility] Comment on above: Performed By: #### NUM #### [facility] ([id number]) [address] [place] [address] 53598 GLUCOSE PRIMO Negative Normal NEG [facility] Comment on above: Performed By: #### NUM #### [facility] ([id number]) [address] [place] [address] 55778 KETONES PRIMO Negative Normal NEG [facility] Comment on above: Performed By: #### NUM #### [facility] ([id number]) [address] [place] [address] 43914 LEUKOCYTE ESTERASE PRIMO Negative Normal NEG [facility] Comment on above: Performed By: #### NUM #### [facility] ([id number]) [address] [place] [address] 79312 NITRITE PRIMO Negative Normal NEG [facility] Comment on above: Performed By: #### NUM #### [facility] ([id number]) [address] [place] [address] 21253 PH PRIMO 5.5 Normal 5.0-8.5 [facility] Comment on above: Performed By: #### NUM #### [facility] ([id number]) [address] [place] [address] 27440 PROTEIN PRIMO Negative Normal NEG [facility] Comment on above: Performed By: #### NUM #### [facility] ([id number]) [address] [place] [address] [place] [address] SPECIFIC GRAVITY PRIMO 1.025 Normal 1.003-1.03 5 [facility] Comment on above: Performed By: #### NUM #### [facility] ([id number]) [address] [place] [address] 42756 UROBILINOGEN PRIMO 1.0 eu/dL Normal <1.1 [facility] Comment on above: Performed By: #### NUM #### [facility] ([id number]) [address] [place] [address] 99112 No Panel Informationon 06-01 Bushra Nevarez NP 1 08/02/2023 11:15 AM L Inj/Asp: R knee on 06/01/2024 11:14 AM Indications: pain Details: 20 G needle, anterolateral approach Medications: 40 mg methylPREDNISolone acetate 40 MG/ML UTILIZING ASEPTIC TECHNIQUE PT GIVEN INJECTION IN RIGHT KNEE, NEUROVASC INTACT S/P INJ, TOLERATED WELL Procedure, treatment alternatives, risks and benefits explained, specific risks discussed. Consent was given by the patient. [facility] Controlled Substances Agreem entson 05-25-2024 Controlled Substances Agreements [id number] - [facility]on 1 07-25-2023 Progress Note - Provider [id number][id number] KNEE RIGHT WO IV CONTRAST on 05-20-2024 MR KNEE RIGHT WO IV CONTRAST EXAMINATION/TECHNIQUE: MR KNEE RIGHT WO IV CONTRAST HISTORY: Fall. Pain at the patella. COMPARISON: None RESULT: Some limitations secondary to patient body habitus. MENISCI: Medial Meniscus: Intact Lateral Meniscus: Intact LIGAMENTS: ACL, PCL, MCL, and LCL complex intact. CARTILAGE: Small area of high-grade partial-thickness chondral loss medial patella. Small osteophytes. TENDONS: Distal quadriceps intact. Patellar tendon intact. Popliteus intact. BONES AND MARROW: No evidence of fracture or bone marrow replacing process. Red marrow reconversion. MUSCLES: Muscle bulk and signal intensity are normal. JOINT FLUID AND SYNOVIUM: No joint effusion. No synovitis. No Rios's cyst. OTHER: Subcutaneous edema, especially anteriorly. No loculated collection. IMPRESSION: Intact appearing menisci and ligaments. No evidence for fracture or bone contusion. Mild patellar chondromalacia. ELECTRONICALLY SIGNED BY: Mark Babb MD Normal Not Available Progress Note - Nurseon 04-30 Progress Note - Nurse Patient left voicemail notifying office that she cannot have her MRI at [facility] due to the weight limit. Patient requesting a call back. Called patient back to inquire whether patient had a preference on where the MRI order will be sent. Requested patient give office a call back to discuss further [Electronically Signed on: 05/20/2024 09:19 EST] Shaylee Casiano RN G [Verified on: 05/20/2024 09:19 EST] Patsyz RN, Shaylee G [facility] Coding Summaryon 05-15-2024 Coding Summary HTMLBase 64 KlbslfiwSDf1kRq+PGhlYWQ+TA0WUCT yZ48mrEJziW3eV5IQMZeBIiowOEXOZC fLPmQymoUhKR8dpESsABPq IC8+UI7cJCNjYqwurMIai5J7cOD1P03 chw4kZKrccXJ0ZTRgBtYtbabtm1wrxN o6JMgwMrdkYvPl RGIexC02JTN5nJ23Hv65uQMzxDJyc8d heXv2OkLlKQYwWBI1dNkzJQjtg9TmQF PlE56ndOKbv6D2 FCAdcAiauWLvGuHbmII0eE3aTIsmlkr rp2rbkamwVph4xp61oSPlk1V9kEB8Y6 WvtjW9ODVrjVIv AarhbMGEnC2ltrubs7xjhuobVaCwGII zMHl3BJm7AHQtiKdjRcChEW59PHU3XA GopmXnX3OoHYZg tExrVbW5j2H2Yk1QD0DNRjfkE3ZRNYM SWTwvdGQ+IN45tn30Y7MgBggpFxr8DD QxMFM3uQO2gH0j TTCvVZkyn5S3kLZ6Y5ZrczIgux3zh7l aVBIfZGiqT69idSDyw5T3WINcqEK2IY MpeUwlLoEwuW36 Oyc+TTGqdRryi6HwNbpag7nvb5tyoYw 2PblaJRYxtfYpgKlqGEU1r5CqRr5oOG IhdGQ0dET3sR4m XdVpWdK9VHkqA074KeZttYUsRympW38 mB5FcgVY+PJFfWev5PJAndKgrZL7dX0 BhZGRpbmctbGVm jMplOO7iPCJegjleWGHekX4aTVXtJ8u 6MrKwNnT8VSnkX7WbELKffwspJt77zZ 8iOoKlDyW8VHqd M7BauiP1UADqbWTbHAhqMRE8N90xb7I 0KQIlGPYcKHM0sNV7mF7zuHlebvcooJ VmdDsgdmVydGlj BJjvUXxeM187DCHjxSpaFxReRGxlEbM EYXRlOiAgMTEvMTcvMjAyNDwvdGQ+PH ZmGPZ6lTchDINf kERjHEvwIz9wtWgiiLxrCS0sEUKnfub oEUQzwI0zGAJitLPnmPkpTK6wMIHhoc zte715VaKlZEY4 CRFcgAZzW7IddM4uXoWwUVUjBRCuH8U mnKObDMslC361VVquZkA2ITOugeFtF6 FsLWFsaWduOiB0 p9G7Vv9Qb2McvuikW2NeeTTwNePqHjc aNLf7K4HfLzlwtML+SC58MBQzVB78MA w3LYH7qZyiGIyv MCIrB0IneY7uUcUvPLTvCOAgTig+PHR hYmxlIHdpZHRoPScxMDAlJyBzdHlsZT 8fKu2eFTCpXWLv lXkokSJlTmPdu5aoGKJmUCbcZO8pdVa sP4QypZO8OSQqe4f9Wp70Q23rL5RcoW A+PUSdqYX3kOU7 mS2fNzKbOmE8ABgqE803ZgMasYKpMnx vn7yqa8lzrId5SmV5CGAhnsAqhOanBT Z1h7LhRh17E67q OTqqSXHkYZVvKYQqVCYzjRmkjo8khN8 wIi8+BGLclNB1nSF0jJ5nNyYzZjS8DC hpR088JrXdsWYa Ntgdv1tra7qkkOo9BbEoWZFhwlDioCw rPBY9r4ThGr35F0JqlAqfz6GaFjf8gt 04zTUsk3U0aEW3 Y4UtDGDsawtycMAreFoaMF9xHMOhpve vFTAaeF2pXPUpD5z3EuBfJdK7WLcnW2 YkouR8LJAbnGSn OJGqhHKWhT3rppnsc4ldmfevYoPaXSX oXOq9RHs6VSWowQogDxAfZOV2DqT9ZD B0tOYbdI1msPpd uksmkF3wVrv+OOU1uWQaeSMWGN4mJzv vdGQ+CKBfAPP0iOikDNgnSYMeaG0gRP DpW9l0ErFvGpL5 HTfaV0YxmuW8KCMwpTEvNGBghOOGiF2 rhnlhv6eqhxulFbZdIZIpXLi2RGw1PL FsaWduOiBsZWZ0 GrO7NJK4lSRhtO0rfBhnmjptiY5oCvn +PbxciReqVRY5SCj0Y7MqPod2QVSpeN wiCS1tzHDyIWpm Wg8biAacyHgrQR2uMFPriyjbi493QnX ax6bnTFUhfODhDSllGVP6M80qa8U6KS NtNRSkYJI2iVF1 gX6vlYttrasncZDsxEkwmhZkmEwzXEl pVSxyY299FEUfgRueWbOlYKb3Y0MfZe u5FBVdcOtwDX8g nXEcVQfqJk2uySlnlRtbDF2eYKBpjlj og700ShJns5asLSNojTAxFVuhNWJ0B6 8on8C7WEFlGKGp HQV7cMB6sM1rtDquwzkdbRZxiOyxacN rvQszPCbrAGujQ375YVYscJtrMaJcvU f1U0OqSpx1LBSt iFwuLJ3wdGOsOVlwRd8zpRxihNsgEV4 qZMVobvaud855UaIhf3wkAICofNGvUN ikVEK3Z65pf1R6 TGEjLKPuUCB6dLL5vL3vlJwrtjcjtLG obToaptZdjQffOTcfIFcjD132VZQlsA snPlBhdGllbnQg UKeeAAp3B7CrRussqXH+RW38RPYoAT6 9rWDxxZWaa7dcxMt0CrQzDRFrDQM3qQ swCBexw0PyVIRu U36nfRCzc8G4AOQdxQemuUVfIkGfyVW 2hK8sKStghcvzx0xetzxiYhmal8kafh 83vQ97B93dKPst DKOpLCEwPCXrCMGqoNrtsi5ifI5nXe9 +BYUlpFN1wWB1uH8rEAPhGoP4EQevG7 49InRvcCIvPjxj j3snf1gbnHk4WqF0YJSonhPabScqYNL 2h4XqZc85J58hRQhbINOlOCMdKKWjJV MpfAuaui8uhR9z Ii8+VSXmmUK0eTJ0bD7cNzPhFdD0MHj dO166AdDojBSnGjcyD34aU6VulAY+PH ZmFxr5IFPhaHdg WA3eqLKjEYmyBf2qXLT6HuHrLkGgUBb rE5MpCGZvkqrnahistDH8JVHaGFAmsC 30Je0xvZesCCYl yMAWiG4thvdmk4eeyysjJtLcNSVhMNi 6BOz0VWQfiWtqTgBrORH5IkN2WMP2pL VljT6uhZtnufos aK2sQ5LaANEjpvstKf62vB4jTmZzAlM 1MGluOyc+QkxBTktFTlNISVAsIEpFU1 YWQ8XmOOpaoGX+ ALRbDEK0nBunFNfjWLRoqY3zTRFlS0m 2DyWiFtN9QZtuI8KvGOIqgcfpTb27xH 6gPtVwOlT9HKxz R9OnpdZ0EOMenLHpENfvRJM9B14ss2L 2WVFyJMMfTQY2nOY1xL0wuNqgevqijE VmdDsgdmVydGlj UQbzNNpbU186SWPnnFkzNjVoEgC5IkG 4PYC7O6DaYns8AXFylBawSL9mwPIiOF wtVi3zmPonzNnk GM5kYPIjxathHGXvjU3dJSStzFDpyKu fND8tBJNctplnp386UpOsBCI8PPMlnF ZbD7KxgI5eHtXw JAMoHWTbT2AdaGXrKRvcA847CElqWsU 9AIRujhFaE2EdLQYblVmfVeM8v7A6Nn 4zOCBZZWFyczwv dGQ+AFMdVIJ4uAxfVXxyADLwhQ3uMGJ mD6p2SbXpYoM1OIztN3OfMMCzzzegNs 12kC6fTxDoEgE4 KWzpH5DxypY5NDEzuMEgWXndPGK9X06 jh3O4ZLSvHDPiIRY5vUA1jH4tzVyfcq ogbGVmdDsgdmVy xBtwZDtqCTgjF070YHXjlFhhDkHPCZP MRTwvdGQ+RGBuYBE8bKhdENmbYHIhwE 1mLZXcV5i6MgPy FmD2OCadV9VfDWFthcedUy98sH7qOqR xDsO0QIhwG7AxwiT6PGGbvNBtAHmnBV O9V53po2N5PQRi RQNrCKC3rCB5iN0soWmdrgqqhXZglFs tlsIkuYivXKsdYGvdT253BYMujRmjTx 0HMB08NR49I4Kj PjwvdGFibGU+PHRhYmxlIHdpZHRoPSc vWNGjCjYyiIntDO6zAx8qIBIjYXJwpK lgrAOmXxRjg8wi DDGzBKkiWH4nrXomJ5CagQF0FBGsq1p 7Gf54T18nB9QmqTH+HRQfnPW3oPN2vZ 7fYwQiGrJ0ORul V578UxWzfOJsWawzm5kdb8qxbUt0IzQ rSDKsoqHrnZfqJZP9k2SwNg92N37kUB dpZHRoPSIyMCUi RZRlbSsiqo8ufQ3eQn0+MPQzaFP7mJH 8aA6eEiIcDjY4ENebK598FrOxsVPwEe tyM73rY1OgsGB+ GQIiVxc3OLFemXqxIQ2oqUFsDWwoAx3 gYZJ6FsXgZlLpPSabX3JfRNGzzhhlmt ksyKG3PPMfCKVw vY51Zw8bbVkfYv4qVBBoATX3QJQlaCZ jP6VjwX4eQrUhLTDvQRTeJ1LxvSGoUE smI058DXfvOxH2 MADvjfVjP6CzYQOgvEfoEgU6k4N1Iq4 SpBzhlGEkQS1vLoLhYJw3G3MaFmc9DQ RebCphJW2roXWc BRdtMk3egRgkvTmsRR6qYGQybjmoi18 2DmScd4lkKGMcsKXxCHhaOLS2H86gc5 R0WDZgIJHiEQU3 sAS2hW8qcAalngsdzOFicLqhnzVysKb tUKbrIUtkP449SRVrbDsoZyQHUrm6P7 OdLhs2LCCgxPnl JV1cqMDrLVgxFr5viGtnvFrtKI9xGLB frlyqk569SaIpd9miVGLuaIFhPFtyQQ K5S42zy9L6MIYx BRMeMRQ3fCD5oM5bzYknlsrvkMPiiCm ptdNzaUvrYOgqQTyvC366KNEdmBcnTg 8YJow3Q7XfPpp8 PKJhhZrvIE3brRNlWHqmYp1rwSqceWe uYG1jWYSyeyiam478SwBzj4fzZLFawY DgZHfeZBV8U24s z7U4XUQkLIJuNJK4vPF5wM2ngGhpbrq boXUjmWmvvzWtfAzaOWpvQBhrG205LO RvcDsnPlBheWVy OjwvdGQ+CS64tx27I1UmIvziTax7JGS fEMH2xKS5rC0dWPPoQQako9F2xHI8H5 RuytVyli4tz3ya YXB (more content not included)... Normal [facility] 25(OH)D3 [facility] 2023 25-hydroxyvitami n D3 [Mass/Vol] 33.7 ng/mL Normal 31.0-80.0 [facility] Comment on above: Order Comment: Specimen Type: BLOOD SPEC IMEN Ordering Facility: [facility] Address: [address] [place] [address] Result Comment: Clas sification of 25 [place] Vitamin D status: Deficiency/Insufficiency: < or = 30 ng/ml. Sufficiency/Optimal Levels: 31-80 ng/mL Toxicity: > 100 ng/mL. Test performed by chemiluminescent immunoassay. Performed By: #### 5 8410-2 #### [facility] CLIA [id number] [address] [place] [address] 44748 CBC panel Auto (Bld)on 04-29 Erythrocyte distribution width (RBC) [Ratio] 15.5 % High 11.5-15.0 [facility] Comment on above: Order Comment: Specimen Type: BLOOD SPEC IMEN Ordering Facility: [facility] Address: [address] [place], [place] [address] Performed By: #### 5 8410-2 #### [facility] CLIA [id number] [address] [place] [address] 88608 Hematocrit (Bld) [Volume fraction] 43.0 % Normal 36.0-46.0 [facility] Comment on above: Order Comment: Specimen Type: BLOOD SPEC IMEN Ordering Facility: [facility] Address: [address] [place] [address] Performed By: #### 5 8410-2 #### [facility] CLIA [id number] [address] [place] [address] 48714 Hemoglobin (Bld) [Mass/Vol] 13.9 g/dL Normal 11.5-15.5 [facility] Comment on above: Order Comment: Specimen Type: BLOOD SPEC IMEN Ordering Facility: [facility] Address: [address] [place] [address] Performed By: #### 5 8410-2 #### [facility] CLIA [id number] [address] [place] [address] 54199 MCH (RBC) [Entitic mass] 29.2 pg Normal 26.0-34.0 [facility] Comment on above: Order Comment: Specimen Type: BLOOD SPEC IMEN Ordering Facility: [facility] Address: [address] [place] [address] Performed By: #### 5 8410-2 #### [facility] CLIA [id number] [address] [place] [address] 27985 MCHC (RBC) [Mass/Vol] 32.3 g/dL Normal 30.5-36.0 [facility] Comment on above: Order Comment: Specimen Type: BLOOD SPEC IMEN Ordering Facility: [facility] Address: [address] [place] [address] Performed By: #### 5 8410-2 #### [facility] CLIA [id number] [address] [place] [address] 60209 MCV (RBC) [Entitic vol] 90.3 fL Normal 80.0-100.0 [facility] Comment on above: Order Comment: Specimen Type: BLOOD SPEC IMEN Ordering Facility: [facility] Address: [address] [place] [address] Performed By: #### 5 8410-2 #### [facility] CLIA [id number] [address] [place] [address] 39643 Nucleated RBC (Bld) [#/Vol] 10*3/uL Normal <0.01 [facility] Comment on above: Order Comment: Specimen Type: BLOOD SPEC IMEN Ordering Facility: [facility] Address: [address] [place] [address] Performed By: #### 5 8410-2 #### [facility] CLIA [id number] [address] [place] [address] 74434 Platelet mean volume (Bld) [Entitic vol] 9.5 fL Normal 9.0-12.7 [facility] Comment on above: Order Comment: Specimen Type: BLOOD SPEC IMEN Ordering Facility: [facility] Address: [address] [place] [address] Performed By: #### 5 8410-2 #### [facility] CLIA [id number] [address] [place] [address] 86085 Platelets (Bld) [#/Vol] 312 10*3/uL Normal 150-400 [facility] Comment on above: Order Comment: Specimen Type: BLOOD SPEC IMEN Ordering Facility: [facility] Address: [address] [place] [address] Performed By: #### 5 8410-2 #### [facility] CLIA [id number] [address] [place] [address] 45708 RBC (Bld) [#/Vol] 4.76 10*6/uL Normal 3.90-5.20 [facility] Comment on above: Order Comment: Specimen Type: BLOOD SPEC IMEN Ordering Facility: [facility] Address: [address] [place] [address] Performed By: #### 5 8410-2 #### [facility] CLIA [id number] [address] [place] [address] 36832 WBC (Bld) [#/Vol] 17.40 10*3/uL High 3.70-11.00 [facility] Comment on above: Order Comment: Specimen Type: BLOOD SPEC IMEN Ordering Facility: [facility] Address: [address] [place] [address] Performed By: #### 5 8410-2 #### [facility] CLIA [id number] [address] [place] [address] 43393 Comprehensive metabolic 2000 panelon 04-29-2024 Albumin [Mass/Vol] 4.0 g/dL Normal 3.9-4.9 [facility] Comment on above: Order Comment: Specimen Type: BLOOD SPEC IMEN Ordering Facility: [facility] Address: [address] [place] [address] Performed By: #### 5 8410-2 #### [facility] CLIA [id number] [address] [place] [address] 76904 ALP [Catalytic activity/Vol] 111 U/L Normal 34-123 [facility] Comment on above: Order Comment: Specimen Type: BLOOD SPEC IMEN Ordering Facility: [facility] Address: [address] [place] [address] Performed By: #### 5 8410-2 #### [facility] CLIA [id number] [address] [place] [address] 13863 ALT [Catalytic activity/Vol] 22 U/L Normal 7-38 [facility] Comment on above: Order Comment: Specimen Type: BLOOD SPEC IMEN Ordering Facility: [facility] Address: [address] [place] [address] Performed By: #### 5 8410-2 #### [facility] CLIA [id number] [address] [place] [address]17 Anion gap [Moles/Vol] 11 mmol/L Normal 8-15 [facility] Comment on above: Order Comment: Specimen Type: BLOOD SPEC IMEN Ordering Facility: [facility] Address: [address] [place] [address] Performed By: #### 5 8410-2 #### [facility] CLIA [id number] [address] [place] [address] AST [Catalytic activity/Vol] 17 U/L Normal 13-35 [facility] Comment on above: Order Comment: Specimen Type: BLOOD SPEC IMEN Ordering Facility: [facility] Address: [address] [place] [address] Performed By: #### 5 8410-2 #### [facility] CLIA [id number] [address] [place] [address] Bilirubin [Mass/Vol] 0.2 mg/dL Normal 0.2-1.3 [facility] Comment on above: Order Comment: Specimen Type: BLOOD SPEC IMEN Ordering Facility: [facility] Address: [address] [place] [address] Performed By: #### 5 8410-2 #### [facility] CLIA [id number] [address] [place] [address] Calcium [Mass/Vol] 9.3 mg/dL Normal 8.5-10.2 [facility] Comment on above: Order Comment: Specimen Type: BLOOD SPEC IMEN Ordering Facility: [facility] Address: [address] [place] [address] Performed By: #### 5 8410-2 #### [facility] CLIA [id number] [address] [place] [address] Chloride [Moles/Vol] 103 mmol/L Normal 98-107 [facility] Comment on above: Order Comment: Specimen Type: BLOOD SPEC IMEN Ordering Facility: [facility] Address: [address] [place] [address] Performed By: #### 5 8410-2 #### [facility] CLIA [id number] [address] [place] [address] CO2 [Moles/Vol] 24 mmol/L Normal 22-30 [facility] Comment on above: Order Comment: Specimen Type: BLOOD SPEC IMEN Ordering Facility: [facility] Address: [address] [place] [address] Performed By: #### 5 8410-2 #### [facility] CLIA [id number] [address] [place] [address] Creatinine [Mass/Vol] 0.67 mg/dL Normal 0.58-0.96 [facility] Comment on above: Order Comment: Specimen Type: BLOOD SPEC IMEN Ordering Facility: [facility] Address: [address] [id number] Performed By: #### 5 8410-2 #### [facility] CLIA [id number] [address] [place] [address]679 Creatinine and Glomerular filtration rate.predicted panel (S/P/Bld) 115 mL/min/1.73m??? Normal >=60 [facility] Comment on above: Order Comment: Specimen Type: BLOOD SPEC IMEN Ordering Facility: [facility] Address: [address] [place] [address] Result Comment: Janet mated Glomerular Filtration Rate [...] GFR. Performed By: #### 5 8410-2 #### [facility] CLIA [id number] [address] [place] [address] Glucose [Mass/Vol] 114 mg/dL High 74-99 [facility] Comment on above: Order Comment: Specimen Type: BLOOD SPEC IMEN Ordering Facility: [facility] Address: [address] [place], [place] [id number] Result Comment: The [place] [employer] (ADA) provides guidance for cutoff [...] Standards of Medical Care in Diabetes 2016, [place] [employer]. Diabetes Care. 2016.39(Suppl 1). Performed By: #### 5 8410-2 #### [facility] CLIA [id number] [address] [place] [address] Potassium [Moles/Vol] 4.2 mmol/L Normal 3.7-5.1 [facility] Comment on above: Order Comment: Specimen Type: BLOOD SPEC IMEN Ordering Facility: [facility] Address: [address] [place] [address] Performed By: #### 5 8410-2 #### [facility] CLIA [id number] [address] [place] [address]22 Protein [Mass/Vol] 7.5 g/dL Normal 6.3-8.0 [facility] Comment on above: Order Comment: Specimen Type: BLOOD SPEC IMEN Ordering Facility: [facility] Address: [address] [place] [address] Performed By: #### 5 8410-2 #### [facility] CLIA [id number] [address] [place] [address] Sodium [Moles/Vol] 138 mmol/L Normal 136-144 [facility] Comment on above: Order Comment: Specimen Type: BLOOD SPEC IMEN Ordering Facility: [facility] Address: [address] [place] [address] Performed By: #### 5 8410-2 #### [facility] CLIA [id number] [address] [place] [address] Urea nitrogen [Mass/Vol] 10 mg/dL Normal 7-21 [facility] Comment on above: Order Comment: Specimen Type: BLOOD SPEC IMEN Ordering Facility: [facility] Address: [address] [place] [address] Performed By: #### 5 8410-2 #### [facility] CLIA [id number] [address] [place] [address]683 Folate SerPl-ncon 04-29-20 24 Folate [Mass/Vol] ng/mL Normal >4.7 [facility] Comment on above: Order Comment: Specimen Type: BLOOD SPEC IMENOrdering Facility: [facility] Address: [address] [place] [address] Result Comment: A re sult of > 20 ng/mL is not necessarily indicative of a pathologic or treatable condition: it reflects a limitation of the test methodology. Assay reference range: 4.8 to 24.2 ng/mL. Suitable for detection of folate deficiency. Reference: Folate III (Folate III) [package insert V 1.0 Kinyarwanda]. [employer], [place], [place]: April 2015. Performed By: #### 2 731-8, 2284-8, 2132-9 ####[facility] [id number] [place] [address] [place] HbA1c (Bld)on 04-29-2024 Average glucose Estimated from glycated hemoglobin (Bld) [Mass/Vol] 137 mg/dL Normal [facility] Comment on above: Order Comment: Specimen Type: BLOOD SPEC IMEN [facility] Address: [address] [place] [address] Result Comment: eAG: (Estimated average glucose) is a calculated value from HgbA1c and is territory service representative of the average blood glucose level in the last 2-3 month period. Performed By: #### 2 276-4, 24471-7 #### [facility] CLIA [id number] [address] [place] [address] [place] HbA1c (Bld) [Mass fraction] 6.4 % High 4.3-5.6 [facility] Comment on above: Order Comment: Specimen Type: BLOOD SPEC IMEN [facility] Address: [address] [place] [address] Result Comment: Amer ican Diabetes Association guidelines indicate that patients with HgbA1c in the range 5.7-6.4% are at increased risk for development of diabetes, and intervention by lifestyle modification may be beneficial. HgbA1c greater or equal to 6.5% is considered diagnostic of diabetes. Performed By: #### 2 276-4, 06980-4 #### [facility] CLIA [id number] [address] [place] [address] [place] Iron and Iron binding capaci ty panelon 04-29-2024 Iron [Mass/Vol] 53 ug/dL Normal 41-186 [facility] Comment on above: Order Comment: Specimen Type: BLOOD SPEC IMENOrdering Facility: [facility] Address: [address] [place] [address] Performed By: #### 3 016-3, 50808-4 ####[facility] [id number] [place] [address] [place] Iron binding capacity [Mass/Vol] 366 ug/dL Normal 232-386 [facility] Comment on above: Order Comment: Specimen Type: BLOOD SPEC IMENOrdering Facility: [facility] Address: [address] [place] [address] Performed By: #### 3 016-3, 26493-0 ####[facility] [id number] [place] [address] [place] Iron/TIBC [Molar ratio] 14.5 % Low 15.0-57.0 [facility] Comment on above: Order Comment: Specimen Type: BLOOD SPEC IMENOrdering Facility: [facility] Address: [address] [place] [address] Performed By: #### 3 016-3, 48298-8 ####[facility] [id number] [place] [id number] [place] PTH-[facility] Parathyrin.intac t [Mass/Vol] 38 pg/mL Normal 15-65 [facility] Comment on above: Order Comment: Specimen Type: BLOOD SPEC IMENOrdering Facility: [facility] Address: [address] [place] [address] Performed By: #### 2 731-8, 2284-8, 2132-9 ####[facility] [id number] [place] [address] [place] TSH SerPl-aCncon 04-29-2024 TSH Qn 2.600 m[IU]/L Normal 0.270-4.20 0 [facility] Comment on above: Order Comment: Specimen Type: BLOOD SPEC IMENOrdering Facility: [facility] Address: [address] [place] [address] Result Comment: If t he patient is , TSH reference range varies by gestational period: First Trimester (weeks 9-12): 0.180-2.990 mIU/L Second Trimester: 0.110-3.980 mIU/L Third Trimester: 0.480-4.710 mIU/L Jacoby Moreno et al. A Practical Approach for the Verifications and Determination of Site- and Trimester-Specific Reference Intervals for Thyroid Function tests in . Thyroid, 2019:29:3:412-420. Amos yLles, et al. 2017 Guidelines of the [place] Thyroid Association for the Diagnosis and Management of Thyroid Disease during and the . Thyroid, 2017:27:3:315-389. Performed By: #### 3 016-3, 95755-4 ####[facility]IA [id number] [place] [address] [place] VITAMIN B1 (THIAMINE), WHOLE BLOODon 04-29-2024 Thiamine (Bld) [Moles/Vol] 283.0 nmol/L High 84.3-213.3 [facility] Comment on above: Order Comment: Specimen Type: BLOOD SPEC IMEN [facility] Address: [address] [place] [address] Result Comment: This assay measures the concentration of thiamine diphosphate (TDP), the primary active form of vitamin B1. Approximately 90 percent of vitamin B1 present in whole blood is TDP. Thiamine and thiamine monophosphate, which comprise the remaining 10 percent, are not measured. This test was developed, and its performance characteristics determined by the [facility] Department of Pathology and Laboratory Medicine. It has not been cleared or approved by the FDA. The [facility] Department of Pathology and Laboratory Medicine is regulated under CLIA as qualified to perform high-complexity testing. This test is used for clinical purposes. It should not be regarded as investigational or for research. Performed By: #### 2 276-4, 32528-5 #### [facility] CLIA [id number] [address] [place] [address] [place] Vit A SerPl-mCncon 4 Retinol [Mass/Vol] 0.43 mg/L Normal 0.30-1.20 [facility] Comment on above: Order Comment: Specimen Type: BLOOD SPEC IMEN [facility] Address: [address] [place] [address] Result Comment: This test was developed and its performance characteristics determined by [facility]. It has not been cleared or approved by the US Food and Drug Administration. This test was performed in a CLIA certified laboratory and is intended for clinical purposes. Performed By: #### 2 276-4, 13356-0 #### [facility] CLIA [id number] [address] [place] [address] [place] Vit B12 SerPl-mCncon 024 Cobalamin (Vitamin B12) [Mass/Vol] 911 pg/mL Normal 232-1245 [facility] Comment on above: Order Comment: Specimen Type: BLOOD SPEC IMENOrdering Facility: [facility] Address: [address] [place] [address] Performed By: #### 2 731-8, 2284-8, 2132-9 ####[facility]IA [id number] [place] [address] [place] Zinc SerPl-mCncon 04-29-2024 Zinc [Mass/Vol] 47 ug/dL Low 60-120 [facility] Comment on above: Order Comment: Specimen Type: BLOOD SPEC IMEN [facility] Address: [address] [place] [address] Result Comment: This test was developed, and its performance characteristics determined by the [facility] Department of Pathology and Laboratory Medicine. It has not been cleared or approved by the FDA. The [facility] Department of Pathology and Laboratory Medicine is regulated under CLIA as qualified to perform high-complexity testing. This test is used for clinical purposes. It should not be regarded as investigational or for research. Performed By: #### 2 276-4, 70292-7 #### [facility] CLIA [id number] [address] [place] [address] [place] [address] [place] No Panel Informationon 04-27 [...] discussed. Consent was given by the patient. [employer] No Panel Informationon 04-13 Bushra Nevarez NP [...] discussed. Consent was given by the patient. [employer] XR KNEE RT 3 VWSon 4 XR [...] Hardy MD on 04/06/2024 1:14 PM Normal [facility] ALL LDHon 03-23-2024 Interpretation and review of laboratory results Abnormal [facility] LDH [Catalytic activity/Vol] 79 U/L Low 81 - 234 U/L [facility] HCG ( test) Ql (U)o n 12-02-2023 Beta HCG ( test) Ql (U) Negative Normal NEG [facility] Comment on above: Performed By: #### 2106-3 #### [facility] ([id number]) [address] [place] [address] VITAMIN John 11-27-2023 VITAMIN K 0.75 nmol/L Normal 0.22-4.88 [facility] Comment on above: Order Comment: Specimen Type: BLOOD SPEC IMENOrdering Facility: [facility] Address: [address] [place] [address] Result Comment: INTE RPRETIVE INFORMATION: Vitamin K1, Serum Vitamin K concentration is reported as nanomoles per liter (nmol/L). To convert concentration to nanograms per milliliter (ng/mL), multiply the result by 0.45. This test was developed and its performance characteristics determined by [employer]. It has not been cleared or approved by the US Food and Drug Administration. This test was performed in a CLIA certified laboratory and is intended for clinical purposes. Performed By: [facility] [address] [place] [address] Management Developer: John Newsome MD, PhD CLIA Number: [id number] Performed By: #### V ITK ####[facility] Financial[facility] [id number] [place] [address] HCG ( test) Ql (U)o n 11-04-2023 Beta HCG ( test) Ql (U) Negative Normal NEG [facility] Comment on above: Performed By: #### 2106-3 #### [facility] ([id number]) [address] [place] [address] [place] [address] 25(OH)D3 [facility]-ncon 2023 25-hydroxyvitami n D3 [Mass/Vol] 29.3 ng/mL Low 31.0-80.0 [facility] Comment on above: Order Comment: Specimen Type: BLOOD SPEC IMEN [facility] Address: [address] [place] [address] Performed By: #### 2 276-4, 18270-5 #### [facility] CLIA [id number] [address] [place] [address] [place] A-Tocopherol Vit E [facility]-n con 10-28-2023 Alpha tocopherol [Mass/Vol] 7.0 mg/L Normal 6.0-23.0 [facility] Comment on above: Order Comment: Specimen Type: BLOOD SPEC IMENOrdering Facility: [facility] Address: [address] [place] [address] Performed By: #### 1 823-4, 2923-1 ####[facility] [id number] [place] [address] [place] Alpha tocopherol [Mass/Vol]o n 10-28-2023 Beta+gamma tocopherol [Mass/Vol] 0.7 mg/L Normal 0.3-3.2 [facility] Comment on above: Order Comment: Specimen Type: BLOOD SPEC IMENOrdering Facility: [facility] Address: [address] [place] [address] Result Comment: This test was developed and its performance characteristics determined by [facility]'s Gennaro JTanya [facility] Pathology and Laboratory Medicine [place] ([facility]). It has not been cleared or approved by the FDA. [facility] is regulated under CLIA as qualified to perform high-complexity testing. This test is used for clinical purposes. It should not be regarded as investigational or for research. Performed By: #### 1 823-4, 2923-1 ####[facility] [id number] [address] [place] CBC panel Auto (Bld)on 10-27 Erythrocyte distribution width (RBC) [Ratio] 14.3 % Normal 11.5-15.0 [facility] Comment on above: Order Comment: Specimen Type: BLOOD SPEC IMENOrdering Facility: [facility] Address: [address] [place] [address] Performed By: #### 5 8410-2 ####[facility]IA [id number] [place] [address] Hematocrit (Bld) [Volume fraction] 43.5 % Normal 36.0-46.0 [facility] Comment on above: Order Comment: Specimen Type: BLOOD SPEC IMENOrdering Facility: [facility] Address: [address] [place] [address] Performed By: #### 5 8410-2 ####[facility]IA [id number] [place] [address] Hemoglobin (Bld) [Mass/Vol] 13.6 g/dL Normal 11.5-15.5 [facility] Comment on above: Order Comment: Specimen Type: BLOOD SPEC IMENOrdering Facility: [facility] Address: [address] [place] [address] Performed By: #### 5 8410-2 ####[facility]IA [id number] [place] [address] MCH (RBC) [Entitic mass] 27.5 pg Normal 26.0-34.0 [facility] Comment on above: Order Comment: Specimen Type: BLOOD SPEC IMENOrdering Facility: [facility] Address: [address] [place] [address] Performed By: #### 5 8410-2 ####[facility]IA [id number] [place] [address] MCHC (RBC) [Mass/Vol] 31.3 g/dL Normal 30.5-36.0 [facility] Comment on above: Order Comment: Specimen Type: BLOOD SPEC IMENOrdering Facility: [facility] Address: [address] [place] [address] Performed By: #### 5 8410-2 ####[facility]IA [id number] [place] [address] MCV (RBC) [Entitic vol] 88.1 fL Normal 80.0-100.0 [facility] Comment on above: Order Comment: Specimen Type: BLOOD SPEC IMENOrdering Facility: [facility] Address: [address] [place] [address] Performed By: #### 5 8410-2 ####[facility] [id number] [place] [address] Nucleated RBC (Bld) [#/Vol] 10*3/uL Normal <0.01 [facility] Comment on above: Order Comment: Specimen Type: BLOOD SPEC IMENOrdering Facility: [facility] Address: [address] [place] [address] Performed By: #### 5 8410-2 ####[facility]IA [id number] [place] [address] Platelet mean volume (Bld) [Entitic vol] 8.8 fL Low 9.0-12.7 [facility] Comment on above: Order Comment: Specimen Type: BLOOD SPEC IMENOrdering Facility: [facility] Address: [address] [place] [address] Performed By: #### 5 8410-2 ####[facility]IA [id number] [place] [address] Platelets (Bld) [#/Vol] 722 10*3/uL High 150-400 [facility] Comment on above: Order Comment: Specimen Type: BLOOD SPEC IMENOrdering Facility: [facility] Address: [address] [place] [address] Performed By: #### 5 8410-2 ####[facility]CLIA [id number] [place] [address] RBC (Bld) [#/Vol] 4.94 10*6/uL Normal 3.90-5.20 [facility] Comment on above: Order Comment: Specimen Type: BLOOD SPEC IMENOrdering Facility: [facility] Address: [address] [place] [address] Performed By: #### 5 8410-2 ####[facility]IA [id number] [place] [address] WBC (Bld) [#/Vol] 14.70 10*3/uL High 3.70-11.00 [facility] Comment on above: Order Comment: Specimen Type: BLOOD SPEC IMENOrdering Facility: [facility] Address: [address] [place] [address] Performed By: #### 5 8410-2 ####[facility]CLIA [id number] [place] [address] Comprehensive metabolic 2000 panelon 10-28-2023 Albumin [Mass/Vol] 4.2 g/dL Normal 3.9-4.9 [facility] Comment on above: Order Comment: Specimen Type: BLOOD SPEC IMEN [facility] Address: [address] [place] [address] Performed By: #### 5 8410-2 #### [facility] CLIA [id number] [address] [place] [address] ALP [Catalytic activity/Vol] 137 U/L High 34-123 [facility] Comment on above: Order Comment: Specimen Type: BLOOD SPEC IMEN [facility] Address: [address] [place] [address] Performed By: #### 5 8410-2 #### [facility] CLIA [id number] [address] [place] [address] ALT [Catalytic activity/Vol] 37 U/L Normal 7-38 [facility] Comment on above: Order Comment: Specimen Type: BLOOD SPEC IMEN [facility] Address: [address] [place] [address] Performed By: #### 5 8410-2 #### [facility] CLIA [id number] [address] [place] [address] Anion gap [Moles/Vol] 10 mmol/L Normal 9-18 [facility] Comment on above: Order Comment: Specimen Type: BLOOD SPEC IMEN [facility] Address: [address] [place] [address] Performed By: #### 5 8410-2 #### [facility] CLIA [id number] [address] [place] [address] AST [Catalytic activity/Vol] 25 U/L Normal 13-35 [facility] Comment on above: Order Comment: Specimen Type: BLOOD SPEC IMEN [facility] Address: [address] [place] [address] Performed By: #### 5 8410-2 #### [facility] CLIA [id number] [address] [place] [address] Bilirubin [Mass/Vol] mg/dL Low 0.2-1.3 [facility] Comment on above: Order Comment: Specimen Type: BLOOD SPEC IMEN [facility] Address: [address] [place] [address] Performed By: #### 5 8410-2 #### [facility] CLIA [id number] [address] [place] [address] Calcium [Mass/Vol] 9.5 mg/dL Normal 8.5-10.2 [facility] Comment on above: Order Comment: Specimen Type: BLOOD SPEC IMEN [facility] Address: [address] [place] [address] Performed By: #### 5 8410-2 #### [facility] CLIA [id number] [address] [place] [address] Chloride [Moles/Vol] 101 mmol/L Normal 97-105 [facility] Comment on above: Order Comment: Specimen Type: BLOOD SPEC IMEN [facility] Address: [address] [place], [place] [address] Performed By: #### 5 8410-2 #### [facility] CLIA [id number] [address] [place] [address] CO2 [Moles/Vol] 26 mmol/L Normal 22-30 [facility] Comment on above: Order Comment: Specimen Type: BLOOD SPEC IMEN [facility] Address: [address] [place] [address] Performed By: #### 5 8410-2 #### [facility] CLIA [id number] [address] [place] [address] Creatinine [Mass/Vol] 0.76 mg/dL Normal 0.58-0.96 [facility] Comment on above: Order Comment: Specimen Type: BLOOD SPEC IMEN [facility] Address: [address] [place] [address] Performed By: #### 5 8410-2 #### [facility] CLIA [id number] [address] [place] [address] Creatinine and Glomerular filtration rate.predicted panel (S/P/Bld) 103 mL/min/1.73m??? Normal >=60 [facility] Comment on above: Order Comment: Specimen Type: BLOOD SPEC IMEN [facility] Address: [address] [place] [address] Result Comment: Janet mated Glomerular Filtration Rate [...] GFR. Performed By: #### 5 8410-2 #### [facility] CLIA [id number] [address] [place] [address] Glucose [Mass/Vol] 155 mg/dL High 74-99 [facility] Comment on above: Order Comment: Specimen Type: BLOOD SPEC IMEN [facility] Address: [address] [place] [address] Result Comment: The [place] Diabetes Association (ADA) provides guidance for cutoff [...] Standards of Medical Care in Diabetes 2016, [place] Diabetes Association. Diabetes Care. 2016.39(Suppl 1). Performed By: #### 5 8410-2 #### [facility] CLIA [id number] [address] [place] [address] Potassium [Moles/Vol] 3.7 mmol/L Normal 3.7-5.1 [facility] Comment on above: Order Comment: Specimen Type: BLOOD SPEC IMEN [facility] Address: [address] [place] [address] Performed By: #### 5 8410-2 #### [facility] CLIA [id number] [address] [place] [address] Protein [Mass/Vol] 7.9 g/dL Normal 6.3-8.0 [facility] Comment on above: Order Comment: Specimen Type: BLOOD SPEC IMEN [facility] Address: [address] [place] [address] Performed By: #### 5 8410-2 #### [facility] CLIA [id number] [address] [place] [address] Sodium [Moles/Vol] 137 mmol/L Normal 136-144 [facility] Comment on above: Order Comment: Specimen Type: BLOOD SPEC IMEN [facility] Address: [address] [place] [address] Performed By: #### 5 8410-2 #### [facility] CLIA [id number] [address] [place] [address] Urea nitrogen [Mass/Vol] 11 mg/dL Normal 7-21 [facility] Comment on above: Order Comment: Specimen Type: BLOOD SPEC IMEN [facility] Address: [address] [place] [address] Performed By: #### 5 8410-2 #### [facility] CLIA [id number] [address] [place] [address] Ferritin SerPl-mCncon 2023 Ferritin [Mass/Vol] 50.4 ng/mL Normal 14.7-205.1 [facility] Comment on above: Order Comment: Specimen Type: BLOOD SPEC IMEN [facility] Address: [address] [place] [address] Performed By: #### 2 276-4, 25844-2 #### [facility] CLIA [id number] [address] [place] [address] [place] Folate SerPl-mCncon 10-28-19 24 Folate [Mass/Vol] 15.7 ng/mL Normal >4.7 [facility] Comment on above: Order Comment: Specimen Type: BLOOD SPEC IMENOrdering Facility: [facility] Address: [address] [place] [address] Performed By: #### 2 132-9, 2284-8, 2731-8 ####[facility] [id number] [place] [address] [place] HbA1c (Bld)on 10-28-2023 Average glucose Estimated from glycated hemoglobin (Bld) [Mass/Vol] 128 mg/dL Normal [facility] Comment on above: Order Comment: Specimen Type: BLOOD SPEC IMENOrdering Facility: [facility] Address: [address] [place] [address] Result Comment: eAG: (Estimated average glucose) is a calculated value from HgbA1c and is territory service representative of the average blood glucose level in the last 2-3 month period. Performed By: #### 5 5454-3 ####[facility] [id number] [place] [address] [place] HbA1c (Bld) [Mass fraction] 6.1 % High 4.3-5.6 [facility] Comment on above: Order Comment: Specimen Type: BLOOD SPEC IMENOrdering Facility: [facility] Address: [address] [place] [address] Result Comment: Amer [place] Diabetes Association guidelines indicate that patients with HgbA1c in the range 5.7-6.4% are at increased risk for development of diabetes, and intervention by lifestyle modification may be beneficial. HgbA1c greater or equal to 6.5% is considered diagnostic of diabetes. Performed By: #### 5 5454-3 ####[facility] [id number] [place] [address] [place] Iron and Iron binding capaci ty panelon 10-28-2023 Iron [Mass/Vol] 29 ug/dL Low 41-186 [facility] Comment on above: Order Comment: Specimen Type: BLOOD SPEC IMEN [facility] Address: [address] [place] [address] Performed By: #### 2 276-4, 25068-6 #### [facility] CLIA [id number] [address] [place] [address] [place] Iron binding capacity [Mass/Vol] 369 ug/dL Normal 232-386 [facility] Comment on above: Order Comment: Specimen Type: BLOOD SPEC IMEN [facility] Address: [address] [place] [address] Performed By: #### 2 276-4, 54468-7 #### [facility] CLIA [id number] [address] [place] [address] [place] Iron/TIBC [Molar ratio] 7.9 % Low 15.0-57.0 [facility] Comment on above: Order Comment: Specimen Type: BLOOD SPEC IMEN [facility] Address: [address] [place] [address] Performed By: #### 2 276-4, 33123-1 #### [facility] CLIA [id number] [address] [place] [address] [place] PTH-Intact SerPl-mCncon 05-0 Parathyrin.intac t [Mass/Vol] 60 pg/mL Normal 15-65 [facility] Comment on above: Order Comment: Specimen Type: BLOOD SPEC IMENOrdering Facility: [facility] Address: [address] [place] [address] Performed By: #### 2 132-9, 2284-8, 2731-8 ####[facility] [id number] [place] [address] [place] VITAMIN B1 (THIAMINE), WHOLE BLOODon 10-28-2023 Thiamine (Bld) [Moles/Vol] 289.8 nmol/L High 84.3-213.3 [facility] Comment on above: Order Comment: Specimen Type: BLOOD SPEC IMENOrdering Facility: [facility] Address: [address] [place] [address] Result Comment: This assay measures the concentration of thiamine diphosphate (TDP), the primary active form of vitamin B1. Approximately 90 percent of vitamin B1 present in whole blood is TDP. Thiamine and thiamine monophosphate, which comprise the remaining 10 percent, are not measured. This test was developed and its performance characteristics determined by [facility]'s Gennaro JTanya [facility] Pathology [facility] [place] ([facility]). It has not been cleared or approved by the FDA. [facility] is regulated under CLIA as qualified to perform high-complexity testing. This test is used for clinical purposes. It should not be regarded as investigational or for research. Performed By: #### B 1WB ####[facility] [id number] [place] [address] [place] VITAMIN John 10-28-2023 VITAMIN K 6.74 nmol/L High 0.22-4.88 [facility] Comment on above: Order Comment: Specimen Type: BLOOD SPEC IMEN [facility] Address: [address] [place] [address] Result Comment: Elevated vitamin K concentration may be associated with increased lipid concentration. INTERPRETIVE INFORMATION: Vitamin K1, Serum Vitamin K concentration is reported as nanomoles per liter (nmol/L). To convert concentration to nanograms per milliliter (ng/mL), multiply the result by 0.45. This test was developed and its performance characteristics determined by [facility]. It has not been cleared or approved by the [place] Food and Drug Administration. This test was performed in a CLIA certified laboratory and is intended for clinical purposes. Performed By: [facility] [address] [place] [address] Management Developer: John Newsome MD, PhD CLIA Number: [id number] Performed By: #### 5 8410-2 #### [facility] CLIA [id number] [address] [place] [address] Vit A SerPl-mCncon 4 Retinol [Mass/Vol] 0.37 mg/L Normal 0.30-1.20 [facility] Comment on above: Order Comment: Specimen Type: BLOOD SPEC IMENOrdering Facility: [facility] Address: [address] [place] [address] Result Comment: This test was developed and its performance characteristics determined by [facility]'s Gennaro Bee [facility] Pathology [facility] [place] ([facility]). It has not been cleared or approved by the FDA. [facility] is regulated under CLIA as qualified to perform high-complexity testing. This test is used for clinical purposes. It should not be regarded as investigational or for research. Performed By: #### 1 823-4, 2923-1 ####[facility] [id number] [place] [address] [place] Vit B12 SerPl-mCncon 024 Cobalamin (Vitamin B12) [Mass/Vol] 817 pg/mL Normal 232-1245 [facility] Comment on above: Order Comment: Specimen Type: BLOOD SPEC IMENOrdering Facility: [facility] Address: [address] [place] [address] Performed By: #### 2 132-9, 2284-8, 2731-8 ####[facility]CL[facility] [id number] [place] [address] [place] Zinc SerPl-mCncon 10-28-2023 Zinc [Mass/Vol] 45 ug/dL Low 60-120 [facility] Comment on above: Order Comment: Specimen Type: BLOOD SPEC IMEN [facility] Address: [address] [place] [address] Result Comment: This test was developed and its performance characteristics determined by [facility]'s [facility] [place] ([facility]). It has not been cleared or approved by the FDA. -[facility] is regulated under CLIA as qualified to perform high-complexity testing. This test is used for clinical purposes. It should not be regarded as investigational or for research. Performed By: #### 2 276-4, 65451-0 #### [facility] CLIA [id number] [address] [place] [address] [place] BASIC METABOLIC PANLon 10-19 Anion gap [Moles/Vol] 12 mmol/L Normal 5-15 [facility] Comment on above: Performed By: #### BMP #### [facility] ([id number]) [address] [place] [address] Calcium [Mass/Vol] 9.7 mg/dL Normal 8.5-10.5 [facility] Comment on above: Performed By: #### BMP #### [facility] ([id number]) [address], [address] [place] [address] Chloride [Moles/Vol] 100 mmol/L Normal 98-109 [facility] Comment on above: Performed By: #### BMP #### [facility] ([id number]) [address], [address] [place] [address] CO2 [Moles/Vol] 25 mmol/L Normal 22-32 [facility] Comment on above: Performed By: #### BMP #### [facility] ([id number]) [address], [address] [place] [address] Creatinine [Mass/Vol] 0.72 mg/dL Normal 0.40-1.00 [facility] Comment on above: Result Comment: METHOD TRACEABLE TO IDMS STANDARD Performed By: #### B MP #### [facility] ([id number]) [address], [address] [place] [address] eGFR (CKD-EPI) NON-RACE DEPENDENT >90 Normal >59 [facility] Comment on above: Result Comment: Reported eGFR is based on the CKD-EPI 2020 equation that does not use a race coefficient. Performed By: #### B MP #### [facility] ([id number]) [address], [address] [place] [address] Glucose [Mass/Vol] 89 mg/dL Normal 65-99 [facility] Comment on above: Performed By: #### BMP #### [facility] ([id number]) [address], [address] [place] [address] Potassium [Moles/Vol] 4.0 mmol/L Normal 3.5-5.0 [facility] Comment on above: Performed By: #### BMP #### [facility] ([id number]) [address], [address] [place] [address] Sodium [Moles/Vol] 137 mmol/L Normal 134-146 [facility] Comment on above: Performed By: #### BMP #### [facility] ([id number]) [address], [address] [place] [address] Urea nitrogen [Mass/Vol] 18 mg/dL Normal 5-23 [facility] Comment on above: Performed By: #### BMP #### [facility] ([id number]) [address] [place] [address] CNOVon 09-07-2023 CNOV Office Visit (BMINO) SUSI ORTIZ Donya ([id number]) 1985 F FNS Date Time Provider Department 09/07/23 9:30 AM JAYSHREE HUFFMAN During your visit today, we recorded the following information about you: Temperature Pulse Blood pressure Weight 98 degrees 80/minute 107/81 169.9 kg Height 1.626 m Jayshree Huffman APRN.BRAND DESIGNER 09/07/2023 10:12 AM Signed BMI SURGERY Post Op Clinic Note September 07, 2023 INTERVAL HISTORY: Susi Naqvi Ortiz is here for 1 month post [...] loss: 6.128 kg (13 lb 8.2 oz) [place] weight: 66.1 kg (145 lb 10.6 oz) [...] Orders FOLLOW UP: as scheduled Jayshree Huffman APRN.BRAND DESIGNER Referring Provider: JOE GRANDA [[id number]] Allergies As of Date: 09/07/2023 Noted Allergy Reaction AD (more content not included)... Normal [facility] ANES POSTPROC EVALon 024 ANES POSTPROC EVAL HNO ID: [id number] Author: AMANDA ALCANTAR DO Service: Anesthesiology Author [...] Amanda Alcantar DO PATIENT NAME: Susi Naqvi Manuel DATE: August 17, 2023 TIME: 11:37 AM CSN: [id number] [facility] 08-17-2023 OV Office Visit (BMIREJ ) MANUELSUSI ([id number]) 1985 F FNS Date Time Provider Department 08/17/23 10:00 AM JAYSHREE HUFFMAN During your visit today, we recorded the following information about you: Temperature Pulse Blood pressure Weight 97.3 degrees 75/minute 117/75 167.8 kg Height 1.626 m Jayshree HuffmanREY.BRAND DESIGNER 08/17/2023 10:41 AM Signed Assessment BMI Surgical [...] loss: 8.2 kg (18 lb 1.2 oz) [place] weight: 66.1 kg (145 lb 10.6 oz) [...] advance diet (more content not included)... [facility]) [facility]US[facility] OR[facility] ([id number]) 1985 F FNS Date Time Provider Department 08/13/23 [facility] During your visit today, we recorded the following information about you: Cynthia Peterson, SUSAN 08/13/2023 12:14 PM Signed BMI SPECIALTY CARE [...] appt. Reminded patient of how to reach [facility] or their surgeons office. Patient reminded to seek medical attention if they develop chest pain, a sudden onset of shortness of breath or persistent pain in the calf of their legs - BEST TO ALWAYS present to [facility] hospital where you had your surgery Patient verbalized understanding of all advice and instructions given. Cynthia Peterson RN Allergies As of Date: 08/13/2023 Noted Allergy Reaction ADHES. [id number] 03/13/2015 2 - Rash ADHESIVE TAPE-SILICONES 05/06/2019 [...] affective dis (more content not included)... Normal [facility] Basic metabolic 2000 panelon 08-11-2023 Anion gap [Moles/Vol] 13 mmol/L Normal 9-18 [facility] Comment on above: Order Comment: Specimen Type: BLOOD SPEC IMENOrdering Facility: [facility] Address: [address] [place] [address] Performed By: #### 1 9123-9, 2776-06, ####[facility]ORYCLIA [id number] [place] [id number] [place] Calcium [Mass/Vol] 8.8 mg/dL Normal 8.5-10.2 [facility] Comment on above: Order Comment: Specimen Type: BLOOD SPEC IMENOrdering Facility: [facility] Address: [address] [place] [address] Performed By: #### 1 9123-9, 2776-06, ####[facility]ATORYCLIA [id number] [place] [id number] [place] Chloride [Moles/Vol] 105 mmol/L Normal 97-105 [facility] Comment on above: Order Comment: Specimen Type: BLOOD SPEC IMENOrdering Facility: [facility] Address: [address] [place] [address] Performed By: #### 1 9123-9, 2776-06, ####[facility]ORYCLIA [id number] [place] [id number] [place] CO2 [Moles/Vol] 20 mmol/L Low 22-30 [facility] Comment on above: Order Comment: Specimen Type: BLOOD SPEC IMENOrdering Facility: [facility] Address: [address] [place] [id number] Performed By: #### 1 9123-9, 27712-27, ####[facility] LABORATORYCLIA [id number] [place] [id number] [place] Creatinine [Mass/Vol] 0.57 mg/dL Low 0.58-0.96 [facility] Comment on above: Order Comment: Specimen Type: BLOOD SPEC IMENOrdering Facility: [facility] Address: [address] [place], [place] [address] Performed By: #### 1 9123-9, 2777-1, 65679-6 ####[facility] LABORATORYCLIA [id number] [place] [id number] [place] Creatinine and Glomerular filtration rate.predicted panel (S/P/Bld) 119 mL/min/1.73m??? Normal >=60 [facility] Comment on above: Order Comment: Specimen Type: BLOOD SPEC IMENOrdering Facility: [facility] Address: [address] [place] [address] Result Comment: Janet mated Glomerular Filtration Rate [...] GFR. Performed By: #### 1 9123-9, 2777-1, 09921-0 ####[facility]ORATORYCLIA [id number] [place] [id number] [place] Glucose [Mass/Vol] 92 mg/dL Normal 74-99 [facility] Comment on above: Order Comment: Specimen Type: BLOOD SPEC IMENOrdering Facility: [facility] Address: [address] [place] [address] Result Comment: The [place] Diabetes Association (ADA) provides guidance for cutoff [...] Standards of Medical Care in Diabetes 2016, [place] [employer] Association. Diabetes Care. 2016.39(Suppl 1). Performed By: #### 1 9123-9, 2777-1, 17547-7 ####[facility] LABORATORYCLIA [id number] [place] [address] [place] Potassium [Moles/Vol] 4.2 mmol/L Normal 3.7-5.1 [facility] Comment on above: Order Comment: Specimen Type: BLOOD SPEC IMENOrdering Facility: [facility] Address: [address] [place] [address] Performed By: #### 1 9123-9, 2777-1, 65464-1 ####[facility]ORYCLIA [id number] [place] [id number] [place] Sodium [Moles/Vol] 138 mmol/L Normal 136-144 [facility] Comment on above: Order Comment: Specimen Type: BLOOD SPEC IMENOrdering Facility: [facility] Address: [address] [place] [address] Performed By: #### 1 9123-9, 2777-1, 24745-1 ####[facility]ATORYCLIA [id number] [place] [address] [place] Urea nitrogen [Mass/Vol] 3 mg/dL Low 7-21 [facility] Comment on above: Order Comment: Specimen Type: BLOOD SPEC IMENOrdering Facility: [facility] Address: [address] [place] [address] Performed By: #### 1 9123-9, 2777-1, 20865-4 ####[facility]ORYCLIA [id number] [place] [id number] [place] CBC W Auto Differential pane l (Bld)on 08-11-2023 Basophils (Bld) [#/Vol] 0.00 10*3/uL Normal <0.11 [facility] Comment on above: Order Comment: Specimen Type: BLOOD SPEC IMENOrdering Facility: [facility] Address: [address] [place] [address] Performed By: #### 5 7021-8 ####[facility]ATORYCLIA [id number] [place] [address] [place] Basophils/100 WBC (Bld) 0.0 % Normal [facility] Comment on above: Order Comment: Specimen Type: BLOOD SPEC IMENOrdering Facility: [facility] Address: [address] [place] [address] Performed By: #### 5 7021-8 ####[facility]ORATORYCLIA [id number] [place] [id number] [place] Differential cell count method Nom (Bld) Manual Normal [facility] Comment on above: Order Comment: Specimen Type: BLOOD SPEC IMENOrdering Facility: [facility] Address: [address] [place] [address] Performed By: #### 5 7021-8 ####[facility]ORATORYCLIA [id number] [place] [address] [place] Eosinophils (Bld) [#/Vol] 0.62 10*3/uL High <0.46 [facility] Comment on above: Order Comment: Specimen Type: BLOOD SPEC IMENOrdering Facility: [facility] Address: [address] [place] [address] Performed By: #### 5 7021-8 ####[facility]ORATORYCLIA [id number] [address] [place] Eosinophils/100 WBC (Bld) 4.0 % Normal [facility] Comment on above: Order Comment: Specimen Type: BLOOD SPEC IMENOrdering Facility: [facility] Address: [address] [place] [address] Performed By: #### 5 7021-8 ####[facility]ORATORYCLIA [id number] [address] [place] Erythrocyte distribution width (RBC) [Ratio] 14.8 % Normal 11.5-15.0 [facility] Comment on above: Order Comment: Specimen Type: BLOOD SPEC IMENOrdering Facility: [facility] Address: [address] [place] [address] Performed By: #### 5 7021-8 ####[facility] LABORATORYCLIA [id number] [address] [place] Hematocrit (Bld) [Volume fraction] 36.9 % Normal 36.0-46.0 [facility] Comment on above: Order Comment: Specimen Type: BLOOD SPEC IMENOrdering Facility: [facility] Address: [address] [place] [address] Performed By: #### 5 7021-8 ####[facility] LABORATORYCLIA [id number] [place] [id number] [place] Hemoglobin (Bld) [Mass/Vol] 11.8 g/dL Normal 11.5-15.5 [facility] Comment on above: Order Comment: Specimen Type: BLOOD SPEC IMENOrdering Facility: [facility] Address: [address] [place] [address] Performed By: #### 5 7021-8 ####[facility] LABORATORYCLIA [id number] [place] [address] [place] Lymphocytes (Bld) [#/Vol] 3.59 10*3/uL Normal 1.00-4.00 [facility] Comment on above: Order Comment: Specimen Type: BLOOD SPEC IMENOrdering Facility: [facility] Address: [address] [place] [address] Performed By: #### 5 7021-8 ####[facility] LABORATORYCLIA [id number] [address] Lymphocytes/100 WBC (Bld) 22.0 % Normal [facility] Comment on above: Order Comment: Specimen Type: BLOOD SPEC IMENOrdering Facility: [facility] Address: [address] [place] [address] Performed By: #### 5 7021-8 ####[facility] LABORATORYCLIA [id number] [place] [id number] [place] MCH (RBC) [Entitic mass] 29.6 pg Normal 26.0-34.0 [facility] Comment on above: Order Comment: Specimen Type: BLOOD SPEC IMENOrdering Facility: [facility] Address: [address] [place] [address] Performed By: #### 5 7021-8 ####[facility] LABORATORYCLIA [id number] [place] [id number] [place] MCHC (RBC) [Mass/Vol] 32.0 g/dL Normal 30.5-36.0 [facility] Comment on above: Order Comment: Specimen Type: BLOOD SPEC IMENOrdering Facility: [facility] Address: [address] [place] [address] Performed By: #### 5 7021-8 ####[facility] LABORATORYCLIA [id number] [place] [id number] [place] MCV (RBC) [Entitic vol] 92.7 fL Normal 80.0-100.0 [facility] Comment on above: Order Comment: Specimen Type: BLOOD SPEC IMENOrdering Facility: [facility] Address: [address] [place] [address] Performed By: #### 5 7021-8 ####[facility] LABORATORYCLIA [id number] [place] [address] [place] Monocytes (Bld) [#/Vol] 1.56 10*3/uL High <0.87 [facility] Comment on above: Order Comment: Specimen Type: BLOOD SPEC IMENOrdering Facility: [facility] Address: [address] [place] [address] Performed By: #### 5 7021-8 ####[facility] LABORATORYCLIA [id number] [place] [id number] [place] Monocytes/100 WBC (Bld) 10.0 % Normal [facility] Comment on above: Order Comment: Specimen Type: BLOOD SPEC IMENOrdering Facility: [facility] Address: [address] [place] [address] Performed By: #### 5 7021-8 ####[facility] LABORATORYCLIA [id number] [place] [id number] [place] Neutrophils (Bld) [#/Vol] 9.83 10*3/uL High 1.45-7.50 [facility] Comment on above: Order Comment: Specimen Type: BLOOD SPEC IMENOrdering Facility: [facility] Address: [address] [place] [address] Performed By: #### 5 7021-8 ####[facility] LABORATORYCLIA [id number] [place] [address] [place] Neutrophils/100 WBC (Bld) 63.0 % Normal [facility] Comment on above: Order Comment: Specimen Type: BLOOD SPEC IMENOrdering Facility: [facility] Address: [address] [place] [address] Performed By: #### 5 7021-8 ####[facility] LABORATORYCLIA [id number] [place] [id number] [place] Nucleated RBC (Bld) [#/Vol] 0.16 10*3/uL High <0.01 [facility] Comment on above: Order Comment: Specimen Type: BLOOD SPEC IMENOrdering Facility: [facility] Address: [address] [place] [address] Performed By: #### 5 7021-8 ####[facility] LABORATORYCLIA [id number] [place] [address] [place] Nucleated RBC/100 WBC (Bld) [Ratio] 1.0 /100 WBC Normal [facility] Comment on above: Order Comment: Specimen Type: BLOOD SPEC IMENOrdering Facility: [facility] Address: [address] [place] [address] Performed By: #### 5 7021-8 ####[facility] LABORATORYCLIA [id number] [place] [address] [place] Platelet mean volume (Bld) [Entitic vol] 9.4 fL Normal 9.0-12.7 [facility] Comment on above: Order Comment: Specimen Type: BLOOD SPEC IMENOrdering Facility: [facility] Address: [address] [place] [address] Performed By: #### 5 7021-8 ####[facility] LABORATORYCLIA [id number] [place] [id number] [place] Platelets (Bld) [#/Vol] 579 10*3/uL High 150-400 [facility] Comment on above: Order Comment: Specimen Type: BLOOD SPEC IMENOrdering Facility: [facility] Address: [address] [place] [address] Performed By: #### 5 7021-8 ####[facility] LABORATORYCLIA [id number] [place] [address] [place] Platelets Estimate (Bld) [#/Vol] Increased Normal [facility] Comment on above: Order Comment: Specimen Type: BLOOD SPEC IMENOrdering Facility: [facility] Address: [address] [place] [address] Performed By: #### 5 7021-8 ####[facility] LABORATORYCLIA [id number] [place] [id number] [place] Polychromasia LM Ql (Bld) Slight Normal [facility] Comment on above: Order Comment: Specimen Type: BLOOD SPEC IMENOrdering Facility: [facility] Address: [address] [place] [address] Performed By: #### 5 7021-8 ####[facility] LABORATORYCLIA [id number] [place] [address] [place] RBC (Bld) [#/Vol] 3.98 10*6/uL Normal 3.90-5.20 [facility] Comment on above: Order Comment: Specimen Type: BLOOD SPEC IMENOrdering Facility: [facility] Address: [address] [place] [address] Performed By: #### 5 7021-8 ####[facility] LABORATORYCLIA [id number] [address] [place] Reviewed: see result s of individual morphologies Normal [facility] Comment on above: Order Comment: Specimen Type: BLOOD SPEC IMENOrdering Facility: [facility] Address: [address] [place] [address] Performed By: #### 5 7021-8 ####[facility] LABORATORYCLIA [id number] [address] [place] Target cells LM Ql (Bld) Few Normal [facility] Comment on above: Order Comment: Specimen Type: BLOOD SPEC IMENOrdering Facility: [facility] Address: [address] [place] [address] Performed By: #### 5 7021-8 ####[facility] LABORATORYCLIA [id number] [address] STATES [facility] Variant lymphocytes/100 WBC (Bld) 1.0 % Normal [facility] Comment on above: Order Comment: Specimen Type: BLOOD SPEC IMENOrdering Facility: [facility] Address: [address] [place] [address] Performed By: #### 5 7021-8 ####[facility]ATORYCLIA [id number] [place] [id number] [place] WBC (Bld) [#/Vol] 15.61 10*3/uL High 3.70-11.00 [facility] Comment on above: Order Comment: Specimen Type: BLOOD SPEC IMENOrdering Facility: [facility] Address: [address] [place] [address] Performed By: #### 5 7021-8 ####[facility]ORATORYCLIA [id number] [place] [id number] [facility] CNDSon 08-11-2023 CNDS HNO ID: [id number] Author: JOE GRANDA MD Service: General Surgery [...] Your Medications These medications were sent to [facility] [address] [address] Hours: Thursday-Thursday: 7am-7pm, Sat: 9am-1pm acetaminophen 500 mg tablet enoxaparin 60 mg/0.6 mL Syrg ondansetron orally disintegrating 4 mg disintegrating tablet oxyCODONE IR 5 mg immediate release tablet pantoprazole DR 40 mg tablet Appointments for Next 60 Days Date Time Provider Location Dept Phone 08/17/2023 10:00 AM JAYSHREE HUFFMAN [phone] 08/19/2023 11:45 AM KARON MONSIVAIS REJ [phone] 08/31/2023 9:45 AM MARY COLBERT [facility] [phone] 08/31/2023 10:30 AM SANTIAGO CHRISTOPHER [facility] [phone] 09/07/2023 1:30 PM JAYSHREE HUFFMAN [facility] [phone] Highest Readmission Risk Score: 11 The 30 [...] Resulted Calcium (more content not included)... Normal [facility] Magnesium SerPl-mCncon 08-11 Magnesium [Mass/Vol] 2.0 mg/dL Normal 1.7-2.3 [facility] Comment on above: Order Comment: Specimen Type: BLOOD SPEC IMENOrdering Facility: [facility] Address: [address] [place] [address] Performed By: #### 1 9123-9, 2777-1, 46878-7 ####[facility] LABORATORYCLIA [id number] [place] [address] [place] NURSING PROGon 08-11-2023 NURSING PROG HNO ID: [id number] Author: NAVDEEP VANCE, RN Service: ? Author Type: Registered [...] contact provider if anything changes occur. Normal [facility] Phosphate SerPl-mCncon 08-11 Phosphate [Mass/Vol] 4.3 mg/dL Normal 2.7-4.8 [facility] Comment on above: Order Comment: Specimen Type: BLOOD SPEC IMENOrdering Facility: [facility] Address: [address] [place] [address] Performed By: #### 1 9123-9, 2777-1, 95474-8 ####[facility] LABORATORYCLIA [id number] [place] [id number] [place] Basic metabolic 2000 panelon 08-10-2023 Anion gap [Moles/Vol] 12 mmol/L Normal 9-18 [facility] Comment on above: Order Comment: Specimen Type: BLOOD SPEC IMENOrdering Facility: [facility] Address: [address] [id number] Performed By: #### 1 9123-9, 89289-4, 2777-1 ####[facility] LABORATORYCLIA [id number] [place] [id number] [place] Calcium [Mass/Vol] 8.7 mg/dL Normal 8.5-10.2 [facility] Comment on above: Order Comment: Specimen Type: BLOOD SPEC IMENOrdering Facility: [facility] Address: [address] [place] [address] Performed By: #### 1 9123-9, 16463-5, 277- ####[facility] LABORATORYCLIA [id number] [place] [id number] [place] Chloride [Moles/Vol] 104 mmol/L Normal 97-105 [facility] Comment on above: Order Comment: Specimen Type: BLOOD SPEC IMENOrdering Facility: [facility] Address: [address] [place] [address] Performed By: #### 1 9123-9, 05371-5, 277- ####[facility] LABORATORYCLIA [id number] [place] [id number] [place] CO2 [Moles/Vol] 24 mmol/L Normal 22-30 [facility] Comment on above: Order Comment: Specimen Type: BLOOD SPEC IMENOrdering Facility: [facility] Address: [address] [place] [address] Performed By: #### 1 9123-9, 55756-6, 2776- ####[facility] LABORATORYCLIA [id number] [place] [id number] [place] Creatinine [Mass/Vol] 0.65 mg/dL Normal 0.58-0.96 [facility] Comment on above: Order Comment: Specimen Type: BLOOD SPEC IMENOrdering Facility: [facility] Address: [address] [place] [address] Performed By: #### 1 9123-9, 13695-5, 277- ####[facility] LABORATORYCLIA [id number] [place] [id number] [facility] Creatinine and Glomerular filtration rate.predicted panel (S/P/Bld) 116 mL/min/1.73m??? Normal >=60 [facility] Comment on above: Order Comment: Specimen Type: BLOOD SPEC IMENOrdering Facility: [facility] Address: [address] [place] [address] Result Comment: Janet mated Glomerular Filtration Rate [...] actual GFR. Performed By: #### 1 9123-9, 02935-2, 2776-06 ####[facility] LABORATORYCLIA [id number] [place] [id number] [place] Glucose [Mass/Vol] 91 mg/dL Normal 74-99 [facility] Comment on above: Order Comment: Specimen Type: BLOOD SPEC IMENOrdering Facility: [facility] Address: [address] [place] [address] Result Comment: The [place] [employer] (ADA) provides guidance for cutoff [...] Standards of Medical Care in Diabetes 2016, [place] [employer]. Diabetes Care. 2016.39(Suppl 1). Performed By: #### 1 9123-9, , 2776-06 ####[facility] LABORATORYCLIA [id number] [place] [id number] [place] Potassium [Moles/Vol] 3.4 mmol/L Low 3.7-5.1 [facility] Comment on above: Order Comment: Specimen Type: BLOOD SPEC IMENOrdering Facility: [facility] Address: [address] [place] [address] Performed By: #### 1 9123-9, 52200-6, 2776-06 ####[facility] LABORATORYCLIA [id number] [place] [id number] [place] Sodium [Moles/Vol] 140 mmol/L Normal 136-144 [facility] Comment on above: Order Comment: Specimen Type: BLOOD SPEC IMENOrdering Facility: [facility] Address: [address] [place] [address] Performed By: #### 1 9123-9, 11331-3, 2777- ####[facility]OR[facility] LABORATORYCLIA [id number] [place] [id number] [place] Urea nitrogen [Mass/Vol] 3 mg/dL Low 7- [facility] Comment on above: Order Comment: Specimen Type: BLOOD SPEC IMENOrdering Facility: [facility] Address: [address] [place] [address] Performed By: #### 1 9123-9, 21825-4, 27712-27 ####GEORGE LABORATORYCLIA [id number] [place] [address] [place] CBC W Auto Differential pane l (Bld)on 08-10-2023 Basophils (Bld) [#/Vol] 0.08 10*3/uL Normal <0.11 [facility] Comment on above: Order Comment: Specimen Type: BLOOD SPEC IMENOrdering Facility: [facility] Address: [address] [place] [address] Performed By: #### 5 7021-8 ####[facility] LABORATORYCLIA [id number] [place] [address] [place] Basophils/100 WBC (Bld) 0.6 % Normal [facility] Comment on above: Order Comment: Specimen Type: BLOOD SPEC IMENOrdering Facility: [facility] Address: [address] [place] [address] Performed By: #### 5 7021-8 ####GEORGE LABORATORYCLIA [id number] [place] [address] [place] Differential cell count method Nom (Bld) Auto Normal [facility] Comment on above: Order Comment: Specimen Type: BLOOD SPEC IMENOrdering Facility: [facility] Address: [address] [place] [address] Performed By: #### 5 7021-8 ####GEORGE LABORATORYCLIA [id number] [place] [address] [place] Eosinophils (Bld) [#/Vol] 0.78 10*3/uL High <0.46 [facility] Comment on above: Order Comment: Specimen Type: BLOOD SPEC IMENOrdering Facility: [facility] Address: [address] [place] [address] Performed By: #### 5 7021-8 ####[facility]OR[facility] LABORATORYCLIA [id number] [place] [id number] [place] Eosinophils/100 WBC (Bld) 5.6 % Normal [facility] Comment on above: Order Comment: Specimen Type: BLOOD SPEC IMENOrdering Facility: [facility] Address: [address] [place] [address] Performed By: #### 5 7021-8 ####GEORGE LABORATORYCLIA [id number] [address] [place] Erythrocyte distribution width (RBC) [Ratio] 14.7 % Normal 11.5-15.0 [facility] Comment on above: Order Comment: Specimen Type: BLOOD SPEC IMENOrdering Facility: [facility] Address: [address] [place] [address] Performed By: #### 5 7021-8 ####[facility] LABORATORYCLIA [id number] [place] [address] [place] Hematocrit (Bld) [Volume fraction] 36.9 % Normal 36.0-46.0 [facility] Comment on above: Order Comment: Specimen Type: BLOOD SPEC IMENOrdering Facility: [facility] Address: [address] [place] [address] Performed By: #### 5 7021-8 ####[facility]OR[facility] LABORATORYCLIA [id number] [place] [id number] [place] Hemoglobin (Bld) [Mass/Vol] 11.6 g/dL Normal 11.5-15.5 [facility] Comment on above: Order Comment: Specimen Type: BLOOD SPEC IMENOrdering Facility: [facility] Address: [address] [place] [address] Performed By: #### 5 7021-8 ####GEORGE LABORATORYCLIA [id number] [place] [address] [place] Immature granulocytes (Bld) [#/Vol] 0.11 10*3/uL High <0.10 [facility] Comment on above: Order Comment: Specimen Type: BLOOD SPEC IMENOrdering Facility: [facility] Address: [address] [place] [address] Performed By: #### 5 7021-8 ####[facility]OR[facility] LABORATORYCLIA [id number] [place] [id number] [place] Immature granulocytes/100 WBC (Bld) 0.8 % Normal [facility] Comment on above: Order Comment: Specimen Type: BLOOD SPEC IMENOrdering Facility: [facility] Address: [address] [place] [address] Performed By: #### 5 7021-8 ####[facility] LABORATORYCLIA [id number] [place] [address] [place] Lymphocytes (Bld) [#/Vol] 4.03 10*3/uL High 1.00-4.00 [facility] Comment on above: Order Comment: Specimen Type: BLOOD SPEC IMENOrdering Facility: [facility] Address: [address] [place] [address] Performed By: #### 5 7021-8 ####GEORGE LABORATORYCLIA [id number] [address] STATES [facility] Lymphocytes/100 WBC (Bld) 28.8 % Normal [facility] Comment on above: Order Comment: Specimen Type: BLOOD SPEC IMENOrdering Facility: [facility] Address: [address] [place] [address] Performed By: #### 5 7021-8 ####[facility] LABORATORYCLIA [id number] [place] [id number] [place] MCH (RBC) [Entitic mass] 29.2 pg Normal 26.0-34.0 [facility] Comment on above: Order Comment: Specimen Type: BLOOD SPEC IMENOrdering Facility: [facility] Address: [address] [place] [address] Performed By: #### 5 7021-8 ####[facility]ORGE LABORATORYCLIA [id number] [place] [id number] [place] MCHC (RBC) [Mass/Vol] 31.4 g/dL Normal 30.5-36.0 [facility] Comment on above: Order Comment: Specimen Type: BLOOD SPEC IMENOrdering Facility: [facility] Address: [address] [place] [address] Performed By: #### 5 7021-8 ####[facility] LABORATORYCLIA [id number] [place] [id number] [place] MCV (RBC) [Entitic vol] 92.9 fL Normal 80.0-100.0 [facility] Comment on above: Order Comment: Specimen Type: BLOOD SPEC IMENOrdering Facility: [facility] Address: [address] [place] [address] Performed By: #### 5 7021-8 ####[facility] LABORATORYCLIA [id number] [place] [id number] [place] Monocytes (Bld) [#/Vol] 1.33 10*3/uL High <0.87 [facility] Comment on above: Order Comment: Specimen Type: BLOOD SPEC IMENOrdering Facility: [facility] Address: [address] [place] [address] Performed By: #### 5 7021-8 ####[facility] LABORATORYCLIA [id number] [place] [id number] [place] Monocytes/100 WBC (Bld) 9.5 % Normal [facility] Comment on above: Order Comment: Specimen Type: BLOOD SPEC IMENOrdering Facility: [facility] Address: [address] [place] [address] Performed By: #### 5 7021-8 ####[facility] LABORATORYCLIA [id number] [place] [id number] [place] Neutrophils (Bld) [#/Vol] 7.66 10*3/uL High 1.45-7.50 [facility] Comment on above: Order Comment: Specimen Type: BLOOD SPEC IMENOrdering Facility: [facility] Address: [address] [place] [address] Performed By: #### 5 7021-8 ####[facility] LABORATORYCLIA [id number] [place] [id number] [place] Neutrophils/100 WBC (Bld) 54.7 % Normal [facility] Comment on above: Order Comment: Specimen Type: BLOOD SPEC IMENOrdering Facility: [facility] Address: [address] [place] [address] Performed By: #### 5 7021-8 ####[facility] LABORATORYCLIA [id number] [place] [id number] [place] Nucleated RBC (Bld) [#/Vol] 0.03 10*3/uL High <0.01 [facility] Comment on above: Order Comment: Specimen Type: BLOOD SPEC IMENOrdering Facility: [facility] Address: [address] [place] [address] Performed By: #### 5 7021-8 ####[facility] LABORATORYCLIA [id number] [place] [id number] [place] Nucleated RBC/100 WBC (Bld) [Ratio] 0.2 /100 WBC Normal [facility] Comment on above: Order Comment: Specimen Type: BLOOD SPEC IMENOrdering Facility: [facility] Address: [address] [place] [address] Performed By: #### 5 7021-8 ####[facility] LABORATORYCLIA [id number] [place] [id number] [place] Platelet mean volume (Bld) [Entitic vol] 9.9 fL Normal 9.0-12.7 [facility] Comment on above: Order Comment: Specimen Type: BLOOD SPEC IMENOrdering Facility: [facility] Address: [address] [place] [address] Performed By: #### 5 7021-8 ####[facility] LABORATORYCLIA [id number] [place] [id number] [place] Platelets (Bld) [#/Vol] 557 10*3/uL High 150-400 [facility] Comment on above: Order Comment: Specimen Type: BLOOD SPEC IMENOrdering Facility: [facility] Address: [address] [place] [address] Performed By: #### 5 7021-8 ####[facility] LABORATORYCLIA [id number] [place] [id number] [place] RBC (Bld) [#/Vol] 3.97 10*6/uL Normal 3.90-5.20 [facility] Comment on above: Order Comment: Specimen Type: BLOOD SPEC IMENOrdering Facility: [facility] Address: [address] [place] [address] Performed By: #### 5 7021-8 ####[facility] LABORATORYCLIA [id number] [place] [id number] [facility] WBC (Bld) [#/Vol] 13.99 10*3/uL High 3.70-11.00 [facility] Comment on above: Order Comment: Specimen Type: BLOOD SPEC IMENOrdering Facility: [facility] Address: [address] [place] [address] Performed By: #### 5 7021-8 ####[facility] LABORATORYCLIA [id number] [place] [id number] [facility] [place] Magnesium SerPl-mCncon 08-10 Magnesium [Mass/Vol] 1.8 mg/dL Normal 1.7-2.3 [facility] Comment on above: Order Comment: Specimen Type: BLOOD SPEC IMENOrdering Facility: [facility] Address: [address] [place] [address] Performed By: #### 1 9123-9, 85916-1, 2777-1 ####[facility] LABORATORYCLIA [id number] [place] [id number] [place] NURSING PROGon 08-10-2023 NURSING PROG HNO ID: [id number] Author: SUDHA WELCH RN Service: ? Author [...] possible home today, continue to monitor. Normal [facility] Phosphate SerPl-mCncon 08-10 Phosphate [Mass/Vol] 4.2 mg/dL Normal 2.7-4.8 [facility] Comment on above: Order Comment: Specimen Type: BLOOD SPEC IMENOrdering Facility: [facility] Address: [facility] [place] [address] Performed By: #### 1 9123-9, 16598-2, 2777-1 ####[facility] LABORATORYCLIA [id number] [place] [id number] [place] Basic metabolic 2000 panelon 08-09-2023 Anion gap [Moles/Vol] 12 mmol/L Normal 9-18 [facility] Comment on above: Order Comment: Specimen Type: BLOOD SPEC IMENOrdering Facility: [facility] Address: [facility] [place] [address] Performed By: #### 2 777-1, , ####[facility] LABORATORYCLIA [id number] [place] [address] [place] Calcium [Mass/Vol] 8.3 mg/dL Low 8.5-10.2 [facility] Comment on above: Order Comment: Specimen Type: BLOOD SPEC IMENOrdering Facility: [facility] Address: [facility] [place] [address] Performed By: #### 2 777-1, , 93432-0 ####[facility] LABORATORYCLIA [id number] [place] [id number] [place] Chloride [Moles/Vol] 103 mmol/L Normal 97-105 [facility] Comment on above: Order Comment: Specimen Type: BLOOD SPEC IMENOrdering Facility: [facility] Address: [address] [place] [address] Performed By: #### 2 777-1, , 40853-5 ####[facility] LABORATORYCLIA [id number] [place] [address] [place] CO2 [Moles/Vol] 22 mmol/L Normal 22-30 [facility] Comment on above: Order Comment: Specimen Type: BLOOD SPEC IMENOrdering Facility: [facility] Address: [address] [place] [address] Performed By: #### 2 777-1, , ####GEOR[facility] LABORATORYCLIA [id number] [place] [id number] [place] [facility] Creatinine [Mass/Vol] 0.59 mg/dL Normal 0.58-0.96 [facility] Comment on above: Order Comment: Specimen Type: BLOOD SPEC IMENOrdering Facility: [facility] Address: [address] [place] [address] Performed By: #### 2 777-1, , ####[facility] LABORATORYCLIA [id number] [address] Creatinine and Glomerular filtration rate.predicted panel (S/P/Bld) 118 mL/min/1.73m??? Normal >=60 [facility] Comment on above: Order Comment: Specimen Type: BLOOD SPEC IMENOrdering Facility: [facility] Address: [address] [place] [address] Result Comment: Janet mated Glomerular Filtration Rate [...] GFR. Performed By: #### 2 777-1, , 91864-1 ####GEOR[facility] LABORATORYCLIA [id number] [place] [id number] [place] Glucose [Mass/Vol] 98 mg/dL Normal 74-99 [facility] Comment on above: Order Comment: Specimen Type: BLOOD SPEC IMENOrdering Facility: [facility] Address: [address], [place] [address] Result Comment: The [place] [employer] (ADA) provides guidance for cutoff [...] Standards of Medical Care in Diabetes 2016, [place] [employer]. Diabetes Care. 2016.39(Suppl 1). Performed By: #### 2 777-1, , ####GEORGE LABORATORYCLIA [id number] [place] [address] [place] Potassium [Moles/Vol] 3.5 mmol/L Low 3.7-5.1 [facility] Comment on above: Order Comment: Specimen Type: BLOOD SPEC IMENOrdering Facility: [facility] Address: [address] [place] [address] Performed By: #### 2 777-, , ####GEORGE LABORATORYCLIA [id number] [place] [id number] [place] Sodium [Moles/Vol] 137 mmol/L Normal 136-144 [facility] Comment on above: Order Comment: Specimen Type: BLOOD SPEC IMENOrdering Facility: [facility] Address: [address] [place] [address] Performed By: #### 2 777-, , ####GEOR[facility] LABORATORYCLIA [id number] [place] [id number] [place] Urea nitrogen [Mass/Vol] 3 mg/dL Low 7-21 [facility] Comment on above: Order Comment: Specimen Type: BLOOD SPEC IMENOrdering Facility: [facility] Address: [address] [place] [address] Performed By: #### 2 777-, , 50286-8 ####[facility]OR[facility] LABORATORYCLIA [id number] [place] [id number] [place] CBC W Auto Differential pane l (Bld)on 08-09-2023 Basophils (Bld) [#/Vol] 0.08 10*3/uL Normal <0.11 [facility] Comment on above: Order Comment: Specimen Type: BLOOD SPEC IMENOrdering Facility: [facility] Address: [address] [place] [address] Performed By: #### 5 7021-8 ####GEOR[facility] LABORATORYCLIA [id number] [place] [id number] [place] Basophils/100 WBC (Bld) 0.6 % Normal [facility] Comment on above: Order Comment: Specimen Type: BLOOD SPEC IMENOrdering Facility: [facility] Address: [address] [place] [address] Performed By: #### 5 7021-8 ####GEOR[facility] LABORATORYCLIA [id number] [place] [address] [place] Differential cell count method Nom (Bld) Auto Normal [facility] Comment on above: Order Comment: Specimen Type: BLOOD SPEC IMENOrdering Facility: [facility] Address: [address] [place] [address] Performed By: #### 5 7021-8 ####[facility]OR[facility] LABORATORYCLIA [id number] [place] [id number] [place] Eosinophils (Bld) [#/Vol] 0.78 10*3/uL High <0.46 [facility] Comment on above: Order Comment: Specimen Type: BLOOD SPEC IMENOrdering Facility: [facility] Address: [address] [place] [address] Performed By: #### 5 7021-8 ####GEORGE LABORATORYCLIA [id number] [address] [place] Eosinophils/100 WBC (Bld) 5.4 % Normal [facility] Comment on above: Order Comment: Specimen Type: BLOOD SPEC IMENOrdering Facility: [facility] Address: [address] [place] [address] Performed By: #### 5 7021-8 ####[facility] LABORATORYCLIA [id number] [place] [id number] [place] Erythrocyte distribution width (RBC) [Ratio] 14.6 % Normal 11.5-15.0 [facility] Comment on above: Order Comment: Specimen Type: BLOOD SPEC IMENOrdering Facility: [facility] Address: [address] [place] [address] Performed By: #### 5 7021-8 ####[facility] LABORATORYCLIA [id number] [place] [address] [place] Hematocrit (Bld) [Volume fraction] 37.6 % Normal 36.0-46.0 [facility] Comment on above: Order Comment: Specimen Type: BLOOD SPEC IMENOrdering Facility: [facility] Address: [address] [place] [address] Performed By: #### 5 7021-8 ####[facility]OR[facility] LABORATORYCLIA [id number] [place] [address] [place] Hemoglobin (Bld) [Mass/Vol] 11.9 g/dL Normal 11.5-15.5 [facility] Comment on above: Order Comment: Specimen Type: BLOOD SPEC IMENOrdering Facility: [facility] Address: [address] [place] [address] Performed By: #### 5 7021-8 ####GEORGE LABORATORYCLIA [id number] [place] [id number] [place] Immature granulocytes (Bld) [#/Vol] 0.08 10*3/uL Normal <0.10 [facility] Comment on above: Order Comment: Specimen Type: BLOOD SPEC IMENOrdering Facility: [facility] Address: [address] [place] [address] Performed By: #### 5 7021-8 ####[facility] LABORATORYCLIA [id number] [place] [address] [place] Immature granulocytes/100 WBC (Bld) 0.6 % Normal [facility] Comment on above: Order Comment: Specimen Type: BLOOD SPEC IMENOrdering Facility: [facility] Address: [address] [place] [address] Performed By: #### 5 7021-8 ####[place] [facility]ORATORYCLIA [id number] [address] [place] [facility] Lymphocytes (Bld) [#/Vol] 3.71 10*3/uL Normal 1.00-4.00 [facility] Comment on above: Order Comment: Specimen Type: BLOOD SPEC IMENOrdering Facility: [facility] Address: [address] [place] [address] Performed By: #### 5 7021-8 ####[facility] LABORATORYCLIA [id number] [address] Lymphocytes/100 WBC (Bld) 25.7 % Normal [facility] Comment on above: Order Comment: Specimen Type: BLOOD SPEC IMENOrdering Facility: [facility] Address: [address] [place] [address] Performed By: #### 5 7021-8 ####[facility] LABORATORYCLIA [id number] [address] STATES [facility] MCH (RBC) [Entitic mass] 29.5 pg Normal 26.0-34.0 [facility] Comment on above: Order Comment: Specimen Type: BLOOD SPEC IMENOrdering Facility: [facility] Address: [address] [place] [address] Performed By: #### 5 7021-8 ####[facility] LABORATORYCLIA [id number] [address] STATES [facility] MCHC (RBC) [Mass/Vol] 31.6 g/dL Normal 30.5-36.0 [facility] Comment on above: Order Comment: Specimen Type: BLOOD SPEC IMENOrdering Facility: [facility] Address: [address] [place] [address] Performed By: #### 5 7021-8 ####[facility] LABORATORYCLIA [id number] [address] [place] MCV (RBC) [Entitic vol] 93.1 fL Normal 80.0-100.0 [facility] Comment on above: Order Comment: Specimen Type: BLOOD SPEC IMENOrdering Facility: [facility] Address: [address] [place] [address] Performed By: #### 5 7021-8 ####[facility] LABORATORYCLIA [id number] [place] [id number] [place] Monocytes (Bld) [#/Vol] 1.36 10*3/uL High <0.87 [facility] Comment on above: Order Comment: Specimen Type: BLOOD SPEC IMENOrdering Facility: [facility] Address: [address] [place] [address] Performed By: #### 5 7021-8 ####[facility]OR[facility] LABORATORYCLIA [id number] [place] [id number] [place] Monocytes/100 WBC (Bld) 9.4 % Normal [facility] Comment on above: Order Comment: Specimen Type: BLOOD SPEC IMENOrdering Facility: [facility] Address: [address] [place] [address] Performed By: #### 5 7021-8 ####[facility]OR[facility] LABORATORYCLIA [id number] [place] [id number] [place] Neutrophils (Bld) [#/Vol] 8.44 10*3/uL High 1.45-7.50 [facility] Comment on above: Order Comment: Specimen Type: BLOOD SPEC IMENOrdering Facility: [facility] Address: [address] [place] [address] Performed By: #### 5 7021-8 ####GEOR[facility] LABORATORYCLIA [id number] [place] [id number] [place] Neutrophils/100 WBC (Bld) 58.3 % Normal [facility] Comment on above: Order Comment: Specimen Type: BLOOD SPEC IMENOrdering Facility: [facility] Address: [address] [place] [address] Performed By: #### 5 7021-8 ####[facility]OR[facility] LABORATORYCLIA [id number] [place] [id number] [place] Nucleated RBC (Bld) [#/Vol] 0.03 10*3/uL High <0.01 [facility] Comment on above: Order Comment: Specimen Type: BLOOD SPEC IMENOrdering Facility: [facility] Address: [address] [place] [address] Performed By: #### 5 7021-8 ####[facility] LABORATORYCLIA [id number] [place] [id number] [place] Nucleated RBC/100 WBC (Bld) [Ratio] 0.2 /100 WBC Normal [facility] Comment on above: Order Comment: Specimen Type: BLOOD SPEC IMENOrdering Facility: [facility] Address: [address] [place] [address] Performed By: #### 5 7021-8 ####[facility] LABORATORYCLIA [id number] [place] [id number] [place] Platelet mean volume (Bld) [Entitic vol] 9.5 fL Normal 9.0-12.7 [facility] Comment on above: Order Comment: Specimen Type: BLOOD SPEC IMENOrdering Facility: [facility] Address: [address] [place] [address] Performed By: #### 5 7021-8 ####[facility] LABORATORYCLIA [id number] [place] [id number] [place] Platelets (Bld) [#/Vol] 499 10*3/uL High 150-400 [facility] Comment on above: Order Comment: Specimen Type: BLOOD SPEC IMENOrdering Facility: [facility] Address: [address] [place] [address] Performed By: #### 5 7021-8 ####[facility] LABORATORYCLIA [id number] [place] [id number] [place] RBC (Bld) [#/Vol] 4.04 10*6/uL Normal 3.90-5.20 [facility] Comment on above: Order Comment: Specimen Type: BLOOD SPEC IMENOrdering Facility: [facility] Address: [address] [place] [address] Performed By: #### 5 7021-8 ####[facility] LABORATORYCLIA [id number] [place] [address] [place] WBC (Bld) [#/Vol] 14.45 10*3/uL High 3.70-11.00 [facility] Comment on above: Order Comment: Specimen Type: BLOOD SPEC IMENOrdering Facility: [facility] Address: [facility] [place] [address] Performed By: #### 5 7021-8 ####[facility] LABORATORYCLIA [id number] [place] [id number] [facility] CONSULT PROGon 08-09-2023 CONSULT PROG HNO ID: [id number] Author: BUCKY FLORES APRN.CNP Service: Pain Management Author Type: Nurse Practitioner [...] Please call with questions. SIGNATURE: Bucky Flores APRN.BRAND DESIGNER PAGER:[phone] DATE of SERVICE: August 09, 2023 TIME of SERVICE: 2:20 PM Normal [facility] Magnesium [facility] 08-09 Magnesium [Mass/Vol] 1.8 mg/dL Normal 1.7-2.3 [facility] Comment on above: Order Comment: Specimen Type: BLOOD SPEC IMENOrdering Facility: [facility] Address: [address] [place] [id number] Performed By: #### 2 777-1, , ####GEORGE LABORATORYCLIA [id number] [place] [id number] [facility] [place] NURSING PROGon 08-09-2023 NURSING PROG HNO ID: [id number] Author: NAVDEEP VANCE RN Service: ? Author [...] LIP. Pt is ambulating in hallway. Normal [facility] Phosphate [facility] Phosphate [Mass/Vol] 3.2 mg/dL Normal 2.7-4.8 [facility] Comment on above: Order Comment: Specimen Type: BLOOD SPEC IMENOrdering Facility: [facility] Address: [address] [place] [id number] Performed By: #### 2 777-1, , ####[facility] LABORATORYCLIA [id number] [place] [id number] [place] Basic metabolic 2000 panelon 08-08-2023 Anion gap [Moles/Vol] 12 mmol/L Normal 9-18 [facility] Comment on above: Order Comment: Specimen Type: BLOOD SPEC IMENOrdering Facility: [facility] Address: [address] [place] [address] Performed By: #### 2 777-, , ####[facility] LABORATORYCLIA [id number] [place] [address] [place] Calcium [Mass/Vol] 8.6 mg/dL Normal 8.5-10.2 [facility] Comment on above: Order Comment: Specimen Type: BLOOD SPEC IMENOrdering Facility: [facility] Address: [address] [place] [address] Performed By: #### 2 777-1, , ####[facility] LABORATORYCLIA [id number] [place] [id number] [place] Chloride [Moles/Vol] 105 mmol/L Normal 97-105 [facility] Comment on above: Order Comment: Specimen Type: BLOOD SPEC IMENOrdering Facility: [facility] Address: [address] [place] [address] Performed By: #### 2 777-1, , ####[facility] LABORATORYCLIA [id number] [place] [id number] [place] CO2 [Moles/Vol] 21 mmol/L Low 22-30 [facility] Comment on above: Order Comment: Specimen Type: BLOOD SPEC IMENOrdering Facility: [facility] Address: [address] [place] [address] Performed By: #### 2 777-1, , ####[facility] LABORATORYCLIA [id number] [place] [id number] [place] Creatinine [Mass/Vol] 0.58 mg/dL Normal 0.58-0.96 [facility] Comment on above: Order Comment: Specimen Type: BLOOD SPEC IMENOrdering Facility: [facility] Address: [address] [place] [address] Performed By: #### 2 777-1, , ####[facility] LABORATORYCLIA [id number] [place] [id number] [place] Creatinine and Glomerular filtration rate.predicted panel (S/P/Bld) 119 mL/min/1.73m??? Normal >=60 [facility] Comment on above: Order Comment: Specimen Type: BLOOD SPEC IMENOrdering Facility: [facility] Address: [address] [facility] [place] [address] Result Comment: Janet mated Glomerular Filtration Rate [...] actual GFR. Performed By: #### 2 777-1, 41516-8, 92588-6 ####[facility] LABORATORYCLIA [id number] [place] [id number] [place] Glucose [Mass/Vol] 97 mg/dL Normal 74-99 [facility] Comment on above: Order Comment: Specimen Type: BLOOD SPEC IMENOrdering Facility: [facility] Address: [address] [place] [address] Result Comment: The [place] [employer] (ADA) provides guidance for cutoff [...] Standards of Medical Care in Diabetes 2016, [place] [employer]. Diabetes Care. 2016.39(Suppl 1). Performed By: #### 2 777-1, 82537-6, 38093-2 ####[facility] LABORATORYCLIA [id number] [place] [id number] [place] Potassium [Moles/Vol] 3.9 mmol/L Normal 3.7-5.1 [facility] Comment on above: Order Comment: Specimen Type: BLOOD SPEC IMENOrdering Facility: [facility] Address: [address] [place] [address] Performed By: #### 2 777-1, , ####[facility] LABORATORYCLIA [id number] [place] [id number] [place] [facility] Sodium [Moles/Vol] 138 mmol/L Normal 136-144 [facility] Comment on above: Order Comment: Specimen Type: BLOOD SPEC IMENOrdering Facility: [facility] Address: [address] [place] [address] Performed By: #### 2 777-1, , ####GEOR[facility] LABORATORYCLIA [id number] [place] [address] [place] Urea nitrogen [Mass/Vol] 3 mg/dL Low 7-21 [facility] Comment on above: Order Comment: Specimen Type: BLOOD SPEC IMENOrdering Facility: [facility] Address: [address] [place] [address] Performed By: #### 2 777-1, , ####[facility] LABORATORYCLIA [id number] [place] [address] [place] CBC W Auto Differential pane l (Bld)on 08-08-2023 Basophils (Bld) [#/Vol] 0.08 10*3/uL Normal <0.11 [facility] Comment on above: Order Comment: Specimen Type: BLOOD SPEC IMENOrdering Facility: [facility] Address: [address] [place], [place] [address] [address] Performed By: #### 5 7021-8 ####[facility] LABORATORYCLIA [id number] [address] [place] Basophils/100 WBC (Bld) 0.5 % Normal [facility] Comment on above: Order Comment: Specimen Type: BLOOD SPEC IMENOrdering Facility: [facility] Address: [address] [place], [place] [address] [address] Performed By: #### 5 7021-8 ####[facility] LABORATORYCLIA [id number] [place] [address] [place] Differential cell count method Nom (Bld) Auto Normal [facility] Comment on above: Order Comment: Specimen Type: BLOOD SPEC IMENOrdering Facility: [facility] Address: [facility] [place] [address] Performed By: #### 5 7021-8 ####[facility] LABORATORYCLIA [id number] [place] [address] [place] Eosinophils (Bld) [#/Vol] 0.70 10*3/uL High <0.46 [facility] Comment on above: Order Comment: Specimen Type: BLOOD SPEC IMENOrdering Facility: [facility] Address: [address] [place] [address] Performed By: #### 5 7021-8 ####[facility] LABORATORYCLIA [id number] [address] [place] Eosinophils/100 WBC (Bld) 4.7 % Normal [facility] Comment on above: Order Comment: Specimen Type: BLOOD SPEC IMENOrdering Facility: [facility] Address: [address] [place] [address] Performed By: #### 5 7021-8 ####[facility] LABORATORYCLIA [id number] [address] [place] Erythrocyte distribution width (RBC) [Ratio] 14.2 % Normal 11.5-15.0 [facility] Comment on above: Order Comment: Specimen Type: BLOOD SPEC IMENOrdering Facility: [facility] Address: [address] [place] [address] Performed By: #### 5 7021-8 ####GEOR[facility] LABORATORYCLIA [id number] [place] [id number] [place] Hematocrit (Bld) [Volume fraction] 35.7 % Low 36.0-46.0 [facility] Comment on above: Order Comment: Specimen Type: BLOOD SPEC IMENOrdering Facility: [facility] Address: [address] [place] [address] Performed By: #### 5 7021-8 ####[facility] LABORATORYCLIA [id number] [place] [address] [place] Hemoglobin (Bld) [Mass/Vol] 11.4 g/dL Low 11.5-15.5 [facility] Comment on above: Order Comment: Specimen Type: BLOOD SPEC IMENOrdering Facility: [facility] Address: [address] [place] [address] Performed By: #### 5 7021-8 ####GEORGE LABORATORYCLIA [id number] [place] [id number] [place] Immature granulocytes (Bld) [#/Vol] 0.06 10*3/uL Normal <0.10 [facility] Comment on above: Order Comment: Specimen Type: BLOOD SPEC IMENOrdering Facility: [facility] Address: [address] [place] [address] Performed By: #### 5 7021-8 ####GEORGE LABORATORYCLIA [id number] [place] [address] [place] Immature granulocytes/100 WBC (Bld) 0.4 % Normal [facility] Comment on above: Order Comment: Specimen Type: BLOOD SPEC IMENOrdering Facility: [facility] Address: [address] [place] [address] Performed By: #### 5 7021-8 ####GEORGE LABORATORYCLIA [id number] [place] [address] [place] Lymphocytes (Bld) [#/Vol] 3.44 10*3/uL Normal 1.00-4.00 [facility] Comment on above: Order Comment: Specimen Type: BLOOD SPEC IMENOrdering Facility: [facility] Address: [address] [place] [address] Performed By: #### 5 7021-8 ####GEOR[facility] LABORATORYCLIA [id number] [place] [address] [place] Lymphocytes/100 WBC (Bld) 22.9 % Normal [facility] Comment on above: Order Comment: Specimen Type: BLOOD SPEC IMENOrdering Facility: [facility] Address: [address] [place] [address] Performed By: #### 5 7021-8 ####GEORGE LABORATORYCLIA [id number] [address] [place] MCH (RBC) [Entitic mass] 29.6 pg Normal 26.0-34.0 [facility] Comment on above: Order Comment: Specimen Type: BLOOD SPEC IMENOrdering Facility: [facility] Address: [address] [place] [address] Performed By: #### 5 7021-8 ####GEORGE LABORATORYCLIA [id number] [place] [id number] [place] MCHC (RBC) [Mass/Vol] 31.9 g/dL Normal 30.5-36.0 [facility] Comment on above: Order Comment: Specimen Type: BLOOD SPEC IMENOrdering Facility: [facility] Address: [address] [place] [address] Performed By: #### 5 7021-8 ####GEOR[facility] LABORATORYCLIA [id number] [address] [place] MCV (RBC) [Entitic vol] 92.7 fL Normal 80.0-100.0 [facility] Comment on above: Order Comment: Specimen Type: BLOOD SPEC IMENOrdering Facility: [facility] Address: [address] [place] [address] Performed By: #### 5 7021-8 ####GEOR[facility] LABORATORYCLIA [id number] [address] [place] Monocytes (Bld) [#/Vol] 1.42 10*3/uL High <0.87 [facility] Comment on above: Order Comment: Specimen Type: BLOOD SPEC IMENOrdering Facility: [facility] Address: [address] [place] [address] Performed By: #### 5 7021-8 ####GEORGE LABORATORYCLIA [id number] [place] [id number] [facility] [place] Monocytes/100 WBC (Bld) 9.4 % Normal [facility] Comment on above: Order Comment: Specimen Type: BLOOD SPEC IMENOrdering Facility: [facility] Address: [address] [place] [address] Performed By: #### 5 7021-8 ####GEORGE LABORATORYCLIA [id number] [place] [id number] [place] Neutrophils (Bld) [#/Vol] 9.33 10*3/uL High 1.45-7.50 [facility] Comment on above: Order Comment: Specimen Type: BLOOD SPEC IMENOrdering Facility: [facility] Address: [address] [place] [address] Performed By: #### 5 7021-8 ####[facility] LABORATORYCLIA [id number] [place] [id number] [place] Neutrophils/100 WBC (Bld) 62.1 % Normal [facility] Comment on above: Order Comment: Specimen Type: BLOOD SPEC IMENOrdering Facility: [facility] Address: [address] [place] [address] Performed By: #### 5 7021-8 ####GEORGE LABORATORYCLIA [id number] [place] [id number] [place] Nucleated RBC (Bld) [#/Vol] 10*3/uL Normal <0.01 [facility] Comment on above: Order Comment: Specimen Type: BLOOD SPEC IMENOrdering Facility: [facility] Address: [address] [place] [address] Performed By: #### 5 7021-8 ####GEORGE LABORATORYCLIA [id number] [place] [id number] [place] Nucleated RBC/100 WBC (Bld) [Ratio] 0.0 /100 WBC Normal [facility] Comment on above: Order Comment: Specimen Type: BLOOD SPEC IMENOrdering Facility: [facility] Address: [address] [place] [address] Performed By: #### 5 7021-8 ####[facility] LABORATORYCLIA [id number] [place] [id number] [place] Platelet mean volume (Bld) [Entitic vol] 9.8 fL Normal 9.0-12.7 [facility] Comment on above: Order Comment: Specimen Type: BLOOD SPEC IMENOrdering Facility: [facility] Address: [address] [place], [place] [address] [address] Performed By: #### 5 7021-8 ####[facility] LABORATORYCLIA [id number] [place] [id number] [place] Platelets (Bld) [#/Vol] 457 10*3/uL High 150-400 [facility] Comment on above: Order Comment: Specimen Type: BLOOD SPEC IMENOrdering Facility: [facility] Address: [address] [place] [address] Performed By: #### 5 7021-8 ####[facility] LABORATORYCLIA [id number] [place] [id number] [place] RBC (Bld) [#/Vol] 3.85 10*6/uL Low 3.90-5.20 [facility] Comment on above: Order Comment: Specimen Type: BLOOD SPEC IMENOrdering Facility: [facility] Address: [address] [place] [address] Performed By: #### 5 7021-8 ####[facility] LABORATORYCLIA [id number] [place] [id number] [place] WBC (Bld) [#/Vol] 15.03 10*3/uL High 3.70-11.00 [facility] Comment on above: Order Comment: Specimen Type: BLOOD SPEC IMENOrdering Facility: [facility] Address: [address] [place], [place] [address] [address] Performed By: #### 5 7021-8 ####[facility] LABORATORYCLIA [id number] [place] [id number] [facility] [place] CONSULT PROGon 08-08-2023 CONSULT PROG HNO ID: [id number] Author: AUGUSTUS HERRERA PA-C Service: Pain Management Author Type: Physician Breaker Oiler Type: Consult Progress Note Filed: 08/08/2023 10:26 [...] Patient reports good pain control at rest /10. Epidural site without signs or symptoms of [...] PERTINENT ROS: ALLERGIES ALLERGIES Allergen Reactions Adhes. Hhae-Vekl-Kc* Rash Adhesive Tape-Silic* Rash Augmentin [Amoxicil* Diarrhea [...] Day of surgery MEDICATIONS: Epidural Medications and OCCASIONAL BABYSITTER Settings Bupivacaine 0.0625% + Fentanyl 2 mcg/mL Basal rate: 8 mL/hr. Patient Demand Bolus: 4 mL. Lockout interval: 15 minutes. Patient received 6/ doses in the last 4 hours. Additional medication(s) given: See below Anticoagulation therapy: Heparin 5000 units TID Last Dose given: 08/08 536 Allergy: ALLERGIES Allergen Reactions Adhes. Alpr-Nmqa-Nn* Rash Adhesive Tape-Silic* Rash Augmentin [Amoxicil* Diarrhea [...] (CYMBALTA) 60 mg ORAL DAILY phenol 1 [place] (CHLORASEPTIC) 1 [place] MUCOUS MEMBRANE (TOPICAL MOUTH AND THROAT) q 2 H PRN cetirizine 10 mg tab(s) (ZYRTEC) 10 mg ORAL DAILY acetaminophen 1,000 mg tab(s) (TYLENOL) 1,000 mg ORAL q 6 H fentaNYL 50 mcg/mL 25 mcg injection (SUBLI (more content not included)... Normal [facility] Magnesium [facility] 08-08 Magnesium [Mass/Vol] 1.8 mg/dL Normal 1.7-2.3 [facility] Comment on above: Order Comment: Specimen Type: BLOOD SPEC IMENOrdering Facility: [facility] Address: [address] [place] [address] Performed By: #### 2 777-1, 02185-9, 30145-6 ####[facility] LABORATORYCLIA [id number] [place] [id number] [facility] [place] NURSING PROGon 08-08-2023 NURSING PROG HNO ID: [id number] Author: NAVDEEP VANCE RN Service: ? Author Type: Registered Nurse Type: Nursing Progress Note Filed: 08/08/2023 09:15 Note Text: Nursing Progress Note: Pt AANDO x 3. Abdomen is soft and tender. Upper transverse incision open to air with glue. Epidural infusing per MAR. Lungs diminished on RA. SR on tele. Pt up with 1 assist. Pt tolerating phase II bariatric diet. Normal [facility] Phosphate [facility] 08-08 Phosphate [Mass/Vol] 3.2 mg/dL Normal 2.7-4.8 [facility] Comment on above: Order Comment: Specimen Type: BLOOD SPEC IMENOrdering Facility: [facility] Address: [address] [place] [address] Performed By: #### 2 777-1, 81173-1, 30102-7 ####[facility] LABORATORYCLIA [id number] [place] [id number] [facility] [place] Urinalysis complete panel (U )on 08-08-2023 Bacteria LM.HPF (Urine sed) [#/Area] Rare Abnormal None Seen [facility] Comment on above: Order Comment: Specimen Type: URINE SPEC IMENOrdering Facility: [facility] Address: [address] [place] [address] Performed By: #### 2 4356-8 ####[facility] LABORATORYCLIA [id number] [address] LABCLIA [id number] [address] [place] Bilirubin Ql (U) Negative Normal Negative [facility] Comment on above: Order Comment: Specimen Type: URINE SPEC IMENOrdering Facility: [facility] Address: [address] [place] [address] Performed By: #### 2 4356-8 ####[facility] LABORATORYCLIA [id number] [address] LABCLIA [id number] [address] [place] Clarity (Unsp spec) Turbid Abnormal Clear [facility] Comment on above: Order Comment: Specimen Type: URINE SPEC IMENOrdering Facility: [facility] Address: [address] [place] [address] Performed By: #### 2 4356-8 ####[facility] LABORATORYCLIA [id number] [address] LABCLIA [id number] [address] [place] Color (U) Light [place] Abnormal Yellow [facility] Comment on above: Order Comment: Specimen Type: URINE SPEC IMENOrdering Facility: [facility] Address: [address] [place] [address] Performed By: #### 2 4356-8 ####[facility] LABORATORYCLIA [id number] [address] LABCLIA [id number] [address] Epithelial cells LM.HPF (Urine sed) [#/Area] Moderate Normal [facility] Comment on above: Order Comment: Specimen Type: URINE SPEC IMENOrdering Facility: [facility] Address: [address] [place], [place] [id number] Performed By: #### 2 4356-8 ####[facility] LABORATORYCLIA [id number] [address] LABCLIA [id number] [place] [address] [place] Glucose Test strip (U) [Mass/Vol] Negative Normal Trace, Negative [facility] Comment on above: Order Comment: Specimen Type: URINE SPEC IMENOrdering Facility: [facility] Address: [address] [place] [address] Performed By: #### 2 4356-8 ####[facility] LABORATORYCLIA [id number] [address] LABCLIA [id number] [address] [place] Hemoglobin Ql (U) 3+ Abnormal Negative, Trace [facility] Comment on above: Order Comment: Specimen Type: URINE SPEC IMENOrdering Facility: [facility] Address: [address] [place] [address] Performed By: #### 2 4356-8 ####[facility] LABORATORYCLIA [id number] [address] LABCLIA [id number] [address] [place] Ketones Ql (U) 2+ Abnormal Negative, Trace [facility] Comment on above: Order Comment: Specimen Type: URINE SPEC IMENOrdering Facility: [facility] Address: [address] [place] [address] Performed By: #### 2 4356-8 ####[facility] LABORATORYCLIA [id number] [address] LABCLIA [id number] [place] [address] [place] Leukocyte esterase Test strip Ql (U) 250 Ko/uL Abnormal Negative, 25 Ko/uL [facility] Comment on above: Order Comment: Specimen Type: URINE SPEC IMENOrdering Facility: [facility] Address: [address] [place] [address] Performed By: #### 2 4356-8 ####[facility] LABORATORYCLIA [id number] [address] LABCLIA [id number] [place] [address] [place] Nitrite Ql (U) Negative Normal Negative [facility] Comment on above: Order Comment: Specimen Type: URINE SPEC IMENOrdering Facility: [facility] Address: [address] [place] [address] Performed By: #### 2 4356-8 ####[facility] LABORATORYCLIA [id number] [address] LABCLIA [id number] [place] [address] [place] pH (U) 6.0 [pH] Normal 5.0-8.0 [facility] Comment on above: Order Comment: Specimen Type: URINE SPEC IMENOrdering Facility: [facility] Address: [address] [place] [address] Performed By: #### 2 4356-8 ####[facility] LABORATORYCLIA [id number] [address] LABCLIA [id number] [place] [address] [place] Protein (U) [Mass/Vol] 1+ Abnormal Trace, Negative [facility] Comment on above: Order Comment: Specimen Type: URINE SPEC IMENOrdering Facility: [facility] Address: [address] [place] [address] Performed By: #### 2 4356-8 ####[facility] LABORATORYCLIA [id number] [address] LABCLIA [id number] [place] [address] [place] RBC LM.HPF (Urine sed) [#/Area] /[HPF] Abnormal 0-3 /HPF [facility] Comment on above: Order Comment: Specimen Type: URINE SPEC IMENOrdering Facility: [facility] Address: [address] [place] [address] Performed By: #### 2 4356-8 ####[facility] LABORATORYCLIA [id number] [address] LABCLIA [id number] [address] OF [facility] Specific gravity (U) [Rel density] 1.011 Normal 1.005-1.03 0 [facility] Comment on above: Order Comment: Specimen Type: URINE SPEC IMENOrdering Facility: [facility] Address: [address] [place] [address] Performed By: #### 2 4356-8 ####[facility] LABORATORYCLIA [id number] [address] LABCLIA [id number] [address] OF [facility] Urobilinogen Ql (U) Normal Normal Normal [facility] Comment on above: Order Comment: Specimen Type: URINE SPEC IMENOrdering Facility: [facility] Address: [address] [place] [address] Performed By: #### 2 4356-8 ####[facility] LABORATORYCLIA [id number] [address] LABCLIA [id number] [address] [place] WBC LM.HPF (Urine sed) [#/Area] /[HPF] Abnormal 0-5 /HPF [facility] Comment on above: Order Comment: Specimen Type: URINE SPEC IMENOrdering Facility: [facility] Address: [address] [place] [address] Performed By: #### 2 4356-8 ####[facility] LABORATORYCLIA [id number] [address] [facility] LABCLIA [id number] [address] [address] [place] Urinalysis complete pnl [facility] 08-08-2023 Urinalysis complete panel (U) COLOR: Light [place] CLARITY: Turbid GLUCOSE, URINE: Negative BILIRUBIN, URINE: Negative KETONES, URINE: 2+ SPECIFIC GRAVITY, UR: 1.011 HEMOGLOBIN/BLOOD, UR: 3+ PH, URINE: 6.0 PROTEIN, URINE: 1+ UROBILINOGEN: Normal NITRITES: Negative LEUKEST: 250 Ko/uL WBC, URINE: >25 /HPF RBC, URINE: >25 /HPF BACTERIA: Rare SQUAMOUS EPITHELIAL CELLS: Moderate ORGANISM ID: 1 50,000-<100,000 CFU/ml Mixed microbiota No further workup Normal [facility] Comment on above: Order Comment: Specimen Type: URINE SPEC IMENOrdering Facility: [facility] Address: [address] [place] [address] Performed By: #### 2 4356-8 ####[facility] LABORATORYCLIA [id number] [place] [id number] [facility] LABCLIA [id number] [place] [address] [place] Basic metabolic 2000 panelon 08-07-2023 Anion gap [Moles/Vol] 12 mmol/L Normal 9-18 [facility] Comment on above: Order Comment: Specimen Type: BLOOD SPEC IMENOrdering Facility: [facility] Address: [address] [place] [address] Performed By: #### 1 9123-9, 52415-5, 2777- ####[facility] LABORATORYCLIA [id number] [place] [id number] [place] Calcium [Mass/Vol] 8.4 mg/dL Low 8.5-10.2 [facility] Comment on above: Order Comment: Specimen Type: BLOOD SPEC IMENOrdering Facility: [facility] Address: [address] [place] [address] Performed By: #### 1 9123-9, 64678-2, 2777- ####[facility] LABORATORYCLIA [id number] [place] [address] [place] Chloride [Moles/Vol] 105 mmol/L Normal 97-105 [facility] Comment on above: Order Comment: Specimen Type: BLOOD SPEC IMENOrdering Facility: [facility] Address: [address] [place] [address] Performed By: #### 1 9123-9, 77784-6, 2777-1 ####[facility] LABORATORYCLIA [id number] [place] [id number] [place] CO2 [Moles/Vol] 22 mmol/L Normal 22-30 [facility] Comment on above: Order Comment: Specimen Type: BLOOD SPEC IMENOrdering Facility: [facility] Address: [address] [place] [address] Performed By: #### 1 9123-9, 09261-5, 2777-1 ####[facility] LABORATORYCLIA [id number] [place] [id number] [place] Creatinine [Mass/Vol] 0.61 mg/dL Normal 0.58-0.96 [facility] Comment on above: Order Comment: Specimen Type: BLOOD SPEC IMENOrdering Facility: [facility] Address: [address] [place] [address] Performed By: #### 1 9123-9, 31822-2, 2777- ####[facility] LABORATORYCLIA [id number] [place] [address] [place] Creatinine and Glomerular filtration rate.predicted panel (S/P/Bld) 118 mL/min/1.73m??? Normal >=60 [facility] Comment on above: Order Comment: Specimen Type: BLOOD SPEC IMENOrdering Facility: [facility] Address: [address] [place] [address] Result Comment: Janet mated Glomerular Filtration Rate [...] actual GFR. Performed By: #### 1 9123-9, 93822-6, 27712-27 ####[facility] LABORATORYCLIA [id number] [place] [id number] [place] Glucose [Mass/Vol] 99 mg/dL Normal 74-99 [facility] Comment on above: Order Comment: Specimen Type: BLOOD SPEC IMENOrdering Facility: [facility] Address: [address] [place] [address] Result Comment: The [place] [employer] (ADA) provides guidance for cutoff [...] Standards of Medical Care in Diabetes 2016, [place] [employer]. Diabetes Care. 2016.39(Suppl 1). Performed By: #### 1 9123-9, 22575-1, 2776-06 ####[facility] LABORATORYCLIA [id number] [place] [id number] [place] Potassium [Moles/Vol] 3.7 mmol/L Normal 3.7-5.1 [facility] Comment on above: Order Comment: Specimen Type: BLOOD SPEC IMENOrdering Facility: [facility] Address: [address] [place] [address] Performed By: #### 1 9123-9, 79653-0, 2776-06 ####[facility] LABORATORYCLIA [id number] [place] [id number] [place] Sodium [Moles/Vol] 139 mmol/L Normal 136-144 [facility] Comment on above: Order Comment: Specimen Type: BLOOD SPEC IMENOrdering Facility: [facility] Address: [address] [place] [address] Performed By: #### 1 9123-9, 35708-9, 2777-1 ####[facility] LABORATORYCLIA [id number] [place] [id number] [place] Urea nitrogen [Mass/Vol] 3 mg/dL Low 7-21 [facility] Comment on above: Order Comment: Specimen Type: BLOOD SPEC IMENOrdering Facility: [facility] Address: [address] [place] [address] Performed By: #### 1 9123-9, 05637-5, 2777- ####[facility] LABORATORYCLIA [id number] [place] [id number] [facility] [place] CASE MANAGEMon 08-07-2023 CASE MANAGEM HNO ID: [id number] Author: MARK DIAMOND RN Service: ? Author Type: Registered Nurse Type: Care Mgt Progress Note Filed: 08/07/2023 09:33 Note Text: CARE MANAGEMENT WEEKEND PLANNING NOTE POSSIBLE DISCHARGE Date/Time: TBD Disposition: home w/ family support Transport: Car per pt arrangement Other Concerns: S/p Biliopancreatic diversion w/ duodenal switch. Await return of bowel function. On Phase 1 diet. Anticipate no skilled needs at DC. 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 #: Peyman Pizano [phone] SIGNATURE: Mark Diamond RN PATIENT NAME: Susi Ortiz DATE: August 07, 2023 TIME: 9:29 AM PAGER/CONTACT #: [phone] Normal [facility] CBC W Auto Differential pane l (Bld)on 08-07-2023 Basophils (Bld) [#/Vol] 0.49 10*3/uL High <0.11 [facility] Comment on above: Order Comment: Specimen Type: BLOOD SPEC IMENOrdering Facility: [facility] Address: [address] [place] [address] Performed By: #### 5 7021-8 ####[facility] LABORATORYCLIA [id number] [place] [id number] [place] Basophils/100 WBC (Bld) 3.0 % Normal [facility] Comment on above: Order Comment: Specimen Type: BLOOD SPEC IMENOrdering Facility: [facility] Address: [address] [place] [address] Performed By: #### 5 7021-8 ####[facility] LABORATORYCLIA [id number] [place] [id number] [place] Differential cell count method Nom (Bld) Manual Normal [facility] Comment on above: Order Comment: Specimen Type: BLOOD SPEC IMENOrdering Facility: [facility] Address: [address] [place] [address] Performed By: #### 5 7021-8 ####[facility] LABORATORYCLIA [id number] [place] [address] [place] Eosinophils (Bld) [#/Vol] 0.00 10*3/uL Normal <0.46 [facility] Comment on above: Order Comment: Specimen Type: BLOOD SPEC IMENOrdering Facility: [facility] Address: [address] [place] [address] Performed By: #### 5 7021-8 ####[facility] LABORATORYCLIA [id number] [place] [address] [place] Eosinophils/100 WBC (Bld) 0.0 % Normal [facility] Comment on above: Order Comment: Specimen Type: BLOOD SPEC IMENOrdering Facility: [facility] Address: [address] [place] [address] Performed By: #### 5 7021-8 ####[facility] LABORATORYCLIA [id number] [address] [place] Erythrocyte distribution width (RBC) [Ratio] 14.2 % Normal 11.5-15.0 [facility] Comment on above: Order Comment: Specimen Type: BLOOD SPEC IMENOrdering Facility: [facility] Address: [address] [place] [address] Performed By: #### 5 7021-8 ####[facility] LABORATORYCLIA [id number] [place] [id number] [place] Hematocrit (Bld) [Volume fraction] 37.7 % Normal 36.0-46.0 [facility] Comment on above: Order Comment: Specimen Type: BLOOD SPEC IMENOrdering Facility: [facility] Address: [address] [place] [address] Performed By: #### 5 7021-8 ####[facility] LABORATORYCLIA [id number] [place] [id number] [place] Hemoglobin (Bld) [Mass/Vol] 11.8 g/dL Normal 11.5-15.5 [facility] Comment on above: Order Comment: Specimen Type: BLOOD SPEC IMENOrdering Facility: [facility] Address: [address] [place] [address] Performed By: #### 5 7021-8 ####[facility] LABORATORYCLIA [id number] [place] [address] [place] Lymphocytes (Bld) [#/Vol] 4.43 10*3/uL High 1.00-4.00 [facility] Comment on above: Order Comment: Specimen Type: BLOOD SPEC IMENOrdering Facility: [facility] Address: [address] [place] [address] Performed By: #### 5 7021-8 ####[facility] LABORATORYCLIA [id number] [place] [id number] [place] Lymphocytes/100 WBC (Bld) 27.0 % Normal [facility] Comment on above: Order Comment: Specimen Type: BLOOD SPEC IMENOrdering Facility: [facility] Address: [address] [place] [address] Performed By: #### 5 7021-8 ####[facility] LABORATORYCLIA [id number] [place] [id number] [place] MCH (RBC) [Entitic mass] 29.4 pg Normal 26.0-34.0 [facility] Comment on above: Order Comment: Specimen Type: BLOOD SPEC IMENOrdering Facility: [facility] Address: [address] [place] [address] Performed By: #### 5 7021-8 ####[facility] LABORATORYCLIA [id number] [place] [id number] [place] MCHC (RBC) [Mass/Vol] 31.3 g/dL Normal 30.5-36.0 [facility] Comment on above: Order Comment: Specimen Type: BLOOD SPEC IMENOrdering Facility: [facility] Address: [address] [place] [address] Performed By: #### 5 7021-8 ####[facility] LABORATORYCLIA [id number] [place] [id number] [place] MCV (RBC) [Entitic vol] 94.0 fL Normal 80.0-100.0 [facility] Comment on above: Order Comment: Specimen Type: BLOOD SPEC IMENOrdering Facility: [facility] Address: [address] [place] [address] Performed By: #### 5 7021-8 ####[facility] LABORATORYCLIA [id number] [place] [id number] [place] Monocytes (Bld) [#/Vol] 1.48 10*3/uL High <0.87 [facility] Comment on above: Order Comment: Specimen Type: BLOOD SPEC IMENOrdering Facility: [facility] Address: [address] [place] [address] Performed By: #### 5 7021-8 ####[facility] LABORATORYCLIA [id number] [address] [place] Monocytes/100 WBC (Bld) 9.0 % Normal [facility] Comment on above: Order Comment: Specimen Type: BLOOD SPEC IMENOrdering Facility: [facility] Address: [address] [place] [address] Performed By: #### 5 7021-8 ####[facility] LABORATORYCLIA [id number] [place] [id number] [place] Neutrophils (Bld) [#/Vol] 10.00 10*3/uL High 1.45-7.50 [facility] Comment on above: Order Comment: Specimen Type: BLOOD SPEC IMENOrdering Facility: [facility] Address: [address] [place] [address] Performed By: #### 5 7021-8 ####[facility] LABORATORYCLIA [id number] [place] [id number] [place] Neutrophils/100 WBC (Bld) 61.0 % Normal [facility] Comment on above: Order Comment: Specimen Type: BLOOD SPEC IMENOrdering Facility: [facility] Address: [address] [place] [address] Performed By: #### 5 7021-8 ####[facility] LABORATORYCLIA [id number] [place] [id number] [place] Nucleated RBC (Bld) [#/Vol] 10*3/uL Normal <0.01 [facility] Comment on above: Order Comment: Specimen Type: BLOOD SPEC IMENOrdering Facility: [facility] Address: [address] [place] [address] Performed By: #### 5 7021-8 ####[facility] LABORATORYCLIA [id number] [place] [address] [place] Nucleated RBC/100 WBC (Bld) [Ratio] 0.0 /100 WBC Normal [facility] Comment on above: Order Comment: Specimen Type: BLOOD SPEC IMENOrdering Facility: [facility] Address: [address] [place] [address] Performed By: #### 5 7021-8 ####[facility] LABORATORYCLIA [id number] [place] [id number] [place] Platelet mean volume (Bld) [Entitic vol] 9.3 fL Normal 9.0-12.7 [facility] Comment on above: Order Comment: Specimen Type: BLOOD SPEC IMENOrdering Facility: [facility] Address: [address] [place] [address] Performed By: #### 5 7021-8 ####[facility] LABORATORYCLIA [id number] [place] [id number] [place] Platelets (Bld) [#/Vol] 409 10*3/uL High 150-400 [facility] Comment on above: Order Comment: Specimen Type: BLOOD SPEC IMENOrdering Facility: [facility] Address: [address] [place] [address] Performed By: #### 5 7021-8 ####[facility] LABORATORYCLIA [id number] [place] [id number] [facility] Platelets Estimate (Bld) [#/Vol] Increased Normal [facility] Comment on above: Order Comment: Specimen Type: BLOOD SPEC IMENOrdering Facility: [facility] Address: [address] [place] [address] Performed By: #### 5 7021-8 ####[facility] LABORATORYCLIA [id number] [place] [id number] [facility] [place] RBC (Bld) [#/Vol] 4.01 10*6/uL Normal 3.90-5.20 [facility] Comment on above: Order Comment: Specimen Type: BLOOD SPEC IMENOrdering Facility: [facility] Address: [address] [place] [address] Performed By: #### 5 7021-8 ####[facility] LABORATORYCLIA [id number] [address] [place] Reviewed: unremarkable Normal [facility] Comment on above: Order Comment: Specimen Type: BLOOD SPEC IMENOrdering Facility: [facility] Address: [address] [place] [address] Performed By: #### 5 7021-8 ####[facility] LABORATORYCLIA [id number] [place] [id number] [facility] WBC (Bld) [#/Vol] 16.39 10*3/uL High 3.70-11.00 [facility] Comment on above: Order Comment: Specimen Type: BLOOD SPEC IMENOrdering Facility: [facility] Address: [address] [place] [address] Performed By: #### 5 7021-8 ####[facility] LABORATORYCLIA [id number] [place] [id number] [facility] CONSULT PROGon 08-07-2023 CONSULT PROG HNO ID: [id number] Author: BUCKY FLORES APRN.BRAND DESIGNER Service: Pain Management Author Type: Nurse Practitioner [...] OBJECTIVE PERTINENT ROS: ALLERGIES Allergen Reactions Adhes. Nvmz-Nuia-Kg* Rash Adhesive Tape-Silic* Rash Augmentin [Amoxicil* Diarrhea [...] Day of surgery MEDICATIONS: Epidural Medications and OCCASIONAL BABYSITTER Settings Bupivacaine 0.0625% + Fentanyl 2 mcg/mL [...] (CYMBALTA) 60 mg ORAL DAILY phenol 1 [place] (CHLORASEPTIC) 1 [place] MUCOUS MEMBRANE (TOPICAL MOUTH AND THROAT) q [...] INTRAVENOUS CON (more content not included)... Normal [facility] Magnesium SerPl-mCncon 08-07 Magnesium [Mass/Vol] 1.9 mg/dL Normal 1.7-2.3 [facility] Comment on above: Order Comment: Specimen Type: BLOOD SPEC IMENOrdering Facility: [facility] Address: [address] [place] [address] Performed By: #### 1 9123-9, 18658-4, 2777-1 ####[facility] LABORATORYCLIA [id number] [place] [address] [place] Phosphate SerPl-mCncon 08-07 Phosphate [Mass/Vol] 2.3 mg/dL Low 2.7-4.8 [facility] Comment on above: Order Comment: Specimen Type: BLOOD SPEC IMENOrdering Facility: [facility] Address: [address] [place] [address] Performed By: #### 1 9123-9, 89641-0, 2777-1 ####[facility] LABORATORYCLIA [id number] [place] [id number] [place] Basic metabolic 2000 panelon 08-06-2023 Anion gap [Moles/Vol] 12 mmol/L Normal 9-18 [facility] Comment on above: Order Comment: Specimen Type: BLOOD SPEC IMENOrdering Facility: [facility] Address: [address] [place] [address] Performed By: #### 2 4321-2, 44683-3, 2777-1 ####[facility] LABORATORYCLIA [id number] [place] [id number] [place] Calcium [Mass/Vol] 8.0 mg/dL Low 8.5-10.2 [facility] Comment on above: Order Comment: Specimen Type: BLOOD SPEC IMENOrdering Facility: [facility] Address: [address] [place] [address] Performed By: #### 2 4321-2, , 2776-06 ####[facility] LABORATORYCLIA [id number] [place] [id number] [place] Chloride [Moles/Vol] 106 mmol/L High 97-105 [facility] Comment on above: Order Comment: Specimen Type: BLOOD SPEC IMENOrdering Facility: [facility] Address: [address] [place] [address] Performed By: #### 2 4321-2, , 2776-06 ####[facility] LABORATORYCLIA [id number] [place] [id number] [place] CO2 [Moles/Vol] 23 mmol/L Normal 22-30 [facility] Comment on above: Order Comment: Specimen Type: BLOOD SPEC IMENOrdering Facility: [facility] Address: [address] [place] [address] Performed By: #### 2 4321-2, , 2776-06 ####[facility] LABORATORYCLIA [id number] [place] [id number] [place] Creatinine [Mass/Vol] 0.69 mg/dL Normal 0.58-0.96 [facility] Comment on above: Order Comment: Specimen Type: BLOOD SPEC IMENOrdering Facility: [facility] Address: [address] [place] [address] Performed By: #### 2 4321-2, , 2776-06 ####[facility] LABORATORYCLIA [id number] [place] [id number] [place] Creatinine and Glomerular filtration rate.predicted panel (S/P/Bld) 114 mL/min/1.73m??? Normal >=60 [facility] Comment on above: Order Comment: Specimen Type: BLOOD SPEC IMENOrdering Facility: [facility] Address: [address] [place] [address] Result Comment: Janet mated Glomerular Filtration Rate [...] Performed By: #### 2 4321-2, , 2776-06 ####[facility] LABORATORYCLIA [id number] [place] [id number] [place] Glucose [Mass/Vol] 83 mg/dL Normal 74-99 [facility] Comment on above: Order Comment: Specimen Type: BLOOD SPEC IMENOrdering Facility: [facility] Address: [address] [place] [address] Result Comment: The [place] [employer] (ADA) provides guidance for cutoff [...] Standards of Medical Care in Diabetes 2016, [place] [employer]. Diabetes Care. 2016.39(Suppl 1). Performed By: #### 2 4321-2, , 2776-06 ####[facility] LABORATORYCLIA [id number] [place] [id number] [place] Potassium [Moles/Vol] 3.8 mmol/L Normal 3.7-5.1 [facility] Comment on above: Order Comment: Specimen Type: BLOOD SPEC IMENOrdering Facility: [facility] Address: [address] [place] [address] Performed By: #### 2 4321-2, , 2776-06 ####[facility]VIEW [facility] LABORATORYCLIA [id number] [place] [address] [place] Sodium [Moles/Vol] 141 mmol/L Normal 136-144 [facility] Comment on above: Order Comment: Specimen Type: BLOOD SPEC IMENOrdering Facility: [facility] Address: [address] [place] [address] Performed By: #### 2 4321-2, 89325-1, 2776- ####[facility]OR[facility] LABORATORYCLIA [id number] [place] [id number] [place] Urea nitrogen [Mass/Vol] 5 mg/dL Low 7-21 [facility] Comment on above: Order Comment: Specimen Type: BLOOD SPEC IMENOrdering Facility: [facility] Address: [address] [place] [address] Performed By: #### 2 4321-2, , 2776-06 ####[facility]OR[facility] LABORATORYCLIA [id number] [place] [id number] [place] CBC W Auto Differential pane l (Bld)on 08-06-2023 Basophils (Bld) [#/Vol] 0.37 10*3/uL High <0.11 [facility] Comment on above: Order Comment: Specimen Type: BLOOD SPEC IMENOrdering Facility: [facility] Address: [address] [place] [address] Performed By: #### 5 7021-8 ####[facility]ORGE LABORATORYCLIA [id number] [place] [id number] [place] Basophils/100 WBC (Bld) 2.0 % Normal [facility] Comment on above: Order Comment: Specimen Type: BLOOD SPEC IMENOrdering Facility: [facility] Address: [address] [place] [address] Performed By: #### 5 7021-8 ####GEORGE LABORATORYCLIA [id number] [place] [id number] [place] Differential cell count method Nom (Bld) Manual Normal [facility] Comment on above: Order Comment: Specimen Type: BLOOD SPEC IMENOrdering Facility: [facility] Address: [address] [place] [address] Performed By: #### 5 7021-8 ####[facility] LABORATORYCLIA [id number] [place] [address] [place] Eosinophils (Bld) [#/Vol] 0.74 10*3/uL High <0.46 [facility] Comment on above: Order Comment: Specimen Type: BLOOD SPEC IMENOrdering Facility: [facility] Address: [address] [place] [address] Performed By: #### 5 7021-8 ####GEORGE LABORATORYCLIA [id number] [place] [address] [place] Eosinophils/100 WBC (Bld) 4.0 % Normal [facility] Comment on above: Order Comment: Specimen Type: BLOOD SPEC IMENOrdering Facility: [facility] Address: [address] [place] [address] Performed By: #### 5 7021-8 ####GEORGE LABORATORYCLIA [id number] [place] [address] [place] Erythrocyte distribution width (RBC) [Ratio] 14.6 % Normal 11.5-15.0 [facility] Comment on above: Order Comment: Specimen Type: BLOOD SPEC IMENOrdering Facility: [facility] Address: [address] [place] [address] Performed By: #### 5 7021-8 ####GEORGE LABORATORYCLIA [id number] [place] [address] [place] Hematocrit (Bld) [Volume fraction] 38.0 % Normal 36.0-46.0 [facility] Comment on above: Order Comment: Specimen Type: BLOOD SPEC IMENOrdering Facility: [facility] Address: [address] [place] [address] Performed By: #### 5 7021-8 ####[facility] LABORATORYCLIA [id number] [place] [address] [place] Hemoglobin (Bld) [Mass/Vol] 11.7 g/dL Normal 11.5-15.5 [facility] Comment on above: Order Comment: Specimen Type: BLOOD SPEC IMENOrdering Facility: [facility] Address: [address] [place] [address] Performed By: #### 5 7021-8 ####[facility] LABORATORYCLIA [id number] [place] [address] [place] Lymphocytes (Bld) [#/Vol] 4.05 10*3/uL High 1.00-4.00 [facility] Comment on above: Order Comment: Specimen Type: BLOOD SPEC IMENOrdering Facility: [facility] Address: [address] [place] [address] Performed By: #### 5 7021-8 ####[facility] LABORATORYCLIA [id number] [address] Lymphocytes/100 WBC (Bld) 22.0 % Normal [facility] Comment on above: Order Comment: Specimen Type: BLOOD SPEC IMENOrdering Facility: [facility] Address: [address] [place] [address] Performed By: #### 5 7021-8 ####[facility] LABORATORYCLIA [id number] [address] [place] MCH (RBC) [Entitic mass] 29.5 pg Normal 26.0-34.0 [facility] Comment on above: Order Comment: Specimen Type: BLOOD SPEC IMENOrdering Facility: [facility] Address: [address] [place] [address] Performed By: #### 5 7021-8 ####[facility] LABORATORYCLIA [id number] [address] STATES [facility] MCHC (RBC) [Mass/Vol] 30.8 g/dL Normal 30.5-36.0 [facility] Comment on above: Order Comment: Specimen Type: BLOOD SPEC IMENOrdering Facility: [facility] Address: [address] [place] [address] Performed By: #### 5 7021-8 ####[facility] LABORATORYCLIA [id number] [address] [place] MCV (RBC) [Entitic vol] 96.0 fL Normal 80.0-100.0 [facility] Comment on above: Order Comment: Specimen Type: BLOOD SPEC IMENOrdering Facility: [facility] Address: [address] [place] [address] Performed By: #### 5 7021-8 ####[facility] LABORATORYCLIA [id number] [place] [id number] [place] Monocytes (Bld) [#/Vol] 1.84 10*3/uL High <0.87 [facility] Comment on above: Order Comment: Specimen Type: BLOOD SPEC IMENOrdering Facility: [facility] Address: [address] [place] [address] Performed By: #### 5 7021-8 ####GEORGE LABORATORYCLIA [id number] [place] [id number] [place] Monocytes/100 WBC (Bld) 10.0 % Normal [facility] Comment on above: Order Comment: Specimen Type: BLOOD SPEC IMENOrdering Facility: [facility] Address: [address] [place] [address] Performed By: #### 5 7021-8 ####GEOR[facility] LABORATORYCLIA [id number] [place] [id number] [place] Neutrophils (Bld) [#/Vol] 11.42 10*3/uL High 1.45-7.50 [facility] Comment on above: Order Comment: Specimen Type: BLOOD SPEC IMENOrdering Facility: [facility] Address: [address] [place] [address] Performed By: #### 5 7021-8 ####GEOR[facility] LABORATORYCLIA [id number] [place] [id number] [place] Neutrophils/100 WBC (Bld) 62.0 % Normal [facility] Comment on above: Order Comment: Specimen Type: BLOOD SPEC IMENOrdering Facility: [facility] Address: [address] [place] [address] Performed By: #### 5 7021-8 ####GEORGE LABORATORYCLIA [id number] [place] [id number] [place] Nucleated RBC (Bld) [#/Vol] 10*3/uL Normal <0.01 [facility] Comment on above: Order Comment: Specimen Type: BLOOD SPEC IMENOrdering Facility: [facility] Address: [facility] [place] [address] Performed By: #### 5 7021-8 ####GEOR[facility] LABORATORYCLIA [id number] [place] [id number] [place] Nucleated RBC/100 WBC (Bld) [Ratio] 0.0 /100 WBC Normal [facility] Comment on above: Order Comment: Specimen Type: BLOOD SPEC IMENOrdering Facility: [facility] Address: [address] [place] [address] Performed By: #### 5 7021-8 ####[facility] LABORATORYCLIA [id number] [place] [address] [place] Platelet mean volume (Bld) [Entitic vol] 9.4 fL Normal 9.0-12.7 [facility] Comment on above: Order Comment: Specimen Type: BLOOD SPEC IMENOrdering Facility: [facility] Address: [address] [place] [address] Performed By: #### 5 7021-8 ####[facility] LABORATORYCLIA [id number] [place] [address] [place] Platelets (Bld) [#/Vol] 415 10*3/uL High 150-400 [facility] Comment on above: Order Comment: Specimen Type: BLOOD SPEC IMENOrdering Facility: [facility] Address: [address] [place] [address] Performed By: #### 5 7021-8 ####[facility] LABORATORYCLIA [id number] [place] [id number] [place] Platelets Estimate (Bld) [#/Vol] Increased Normal [facility] Comment on above: Order Comment: Specimen Type: BLOOD SPEC IMENOrdering Facility: [facility] Address: [address] [place] [address] Performed By: #### 5 7021-8 ####GEORGE LABORATORYCLIA [id number] [address] RBC (Bld) [#/Vol] 3.96 10*6/uL Normal 3.90-5.20 [facility] Comment on above: Order Comment: Specimen Type: BLOOD SPEC IMENOrdering Facility: [facility] Address: [address] [place] [address] Performed By: #### 5 7021-8 ####[facility] LABORATORYCLIA [id number] [address] [place] Reviewed: unremarkable Normal [facility] Comment on above: Order Comment: Specimen Type: BLOOD SPEC IMENOrdering Facility: [facility] Address: [address] [place] [address] Performed By: #### 5 7021-8 ####[facility] LABORATORYCLIA [id number] [address] WBC (Bld) [#/Vol] 18.42 10*3/uL High 3.70-11.00 [facility] Comment on above: Order Comment: Specimen Type: BLOOD SPEC IMENOrdering Facility: [facility] Address: [address] [place] [address] Performed By: #### 5 7021-8 ####[facility] LABORATORYCLIA [id number] [address] CONSULT PROGon 08-06-2023 CONSULT PROG HNO ID: [id number] Author: BUCKY FLORES APRN.BRAND DESIGNER Service: Pain Management Author Type: Nurse Practitioner [...] OBJECTIVE PERTINENT ROS: ALLERGIES Allergen Reactions Adhes. Bnhh-Snaj-Ve* Rash Adhesive Tape-Silic* Rash Augmentin [Amoxicil* Diarrhea [...] Day of surgery MEDICATIONS: Epidural Medications and OCCASIONAL BABYSITTER Settings Bupivacaine 0.0625% + Fentanyl 2 mcg/mL [...] (CYMBALTA) 60 mg ORAL DAILY phenol 1 [place] (CHLORASEPTIC) 1 [place] MUCOUS MEMBRANE (TOPICAL MOUTH AND THROAT) q [...] senna-docusate 8.6-50 (more content not included)... Normal [facility] Magnesium [facility] 08-06 Magnesium [Mass/Vol] 2.0 mg/dL Normal 1.7-2.3 [facility] Comment on above: Order Comment: Specimen Type: BLOOD SPEC IMENOrdering Facility: [facility] Address: [address] [place] [address] Performed By: #### 2 4321-2, , 2776-06 ####[facility] LABORATORYCLIA [id number] [place] [id number] [place] NURSING PROGon 08-06-2023 NURSING PROG HNO ID: [id number] Author: BUCKY JOSHI RN Service: Nursing Author Type: Registered Nurse Type: Nursing Progress Note Filed: 08/06/2023 18:19 Note Text: Other: 1410: Pt ambulated POD with standby assist. HR 150-170s at this time, returned to normal at rest. Josee MARTINEZ on unit and aware. Normal [facility] Phosphate [facility] 08-06 Phosphate [Mass/Vol] 3.0 mg/dL Normal 2.7-4.8 [facility] Comment on above: Order Comment: Specimen Type: BLOOD SPEC IMENOrdering Facility: [facility] Address: [address] [place] [address] Performed By: #### 2 4321-2, , 2776-06 ####[facility] LABORATORYCLIA [id number] [place] [id number] [place] Basic metabolic 2000 panelon 08-05-2023 Anion gap [Moles/Vol] 10 mmol/L Normal 9-18 [facility] Comment on above: Order Comment: Specimen Type: BLOOD SPEC IMENOrdering Facility: [facility] Address: [address] [place] [address] Performed By: #### 2 4321-2, HSTNT ####[facility] LABORATORYCLIA [id number] [place] [id number] [place] Calcium [Mass/Vol] 7.8 mg/dL Low 8.5-10.2 [facility] Comment on above: Order Comment: Specimen Type: BLOOD SPEC IMENOrdering Facility: [facility] Address: [address] [place] [address] Performed By: #### 2 4321-2, HSTNT ####[facility] LABORATORYCLIA [id number] [place] [id number] [place] Chloride [Moles/Vol] 105 mmol/L Normal 97-105 [facility] Comment on above: Order Comment: Specimen Type: BLOOD SPEC IMENOrdering Facility: [facility] Address: [address] [place] [address] Performed By: #### 2 4321-2, HSTNT ####[facility] LABORATORYCLIA [id number] [place] [id number] [place] CO2 [Moles/Vol] 24 mmol/L Normal 22-30 [facility] Comment on above: Order Comment: Specimen Type: BLOOD SPEC IMENOrdering Facility: [facility] Address: [address] [place] [address] Performed By: #### 2 4321-2, HSTNT ####[facility] LABORATORYCLIA [id number] [place] [id number] [place] Creatinine [Mass/Vol] 0.77 mg/dL Normal 0.58-0.96 [facility] Comment on above: Order Comment: Specimen Type: BLOOD SPEC IMENOrdering Facility: [facility] Address: [address] [place] [address] Performed By: #### 2 4321-2, HSTNT ####[facility] LABORATORYCLIA [id number] [place] [id number] [place] Creatinine and Glomerular filtration rate.predicted panel (S/P/Bld) 101 mL/min/1.73m??? Normal >=60 [facility] Comment on above: Order Comment: Specimen Type: BLOOD SPEC IMENOrdering Facility: [facility] Address: [address] [place] [address] Result Comment: Janet mated Glomerular Filtration Rate [...] GFR. Performed By: #### 2 4321-2, HSTNT ####[facility] LABORATORYCLIA [id number] [place] [id number] [place] Glucose [Mass/Vol] 93 mg/dL Normal 74-99 [facility] Comment on above: Order Comment: Specimen Type: BLOOD SPEC IMENOrdering Facility: [facility] Address: [address] [place] [address] Result Comment: The [place] [employer] (ADA) provides guidance for cutoff [...] Standards of Medical Care in Diabetes 2016, [place] [employer]. Diabetes Care. 2016.39(Suppl 1). Performed By: #### 2 4321-2, HSTNT ####[facility] LABORATORYCLIA [id number] [place] [id number] [place] Potassium [Moles/Vol] 3.4 mmol/L Low 3.7-5.1 [facility] Comment on above: Order Comment: Specimen Type: BLOOD SPEC IMENOrdering Facility: [facility] Address: [address] [place] [id number] Performed By: #### 2 4321-2, HSTNT ####[facility] LABORATORYCLIA [id number] [place] [id number] [place] Sodium [Moles/Vol] 139 mmol/L Normal 136-144 [facility] Comment on above: Order Comment: Specimen Type: BLOOD SPEC IMENOrdering Facility: [facility] Address: [address] [place] [address] Performed By: #### 2 4321-2, HSTNT ####[facility] LABORATORYCLIA [id number] [place] [id number] [place] Urea nitrogen [Mass/Vol] 7 mg/dL Normal 7-21 [facility] Comment on above: Order Comment: Specimen Type: BLOOD SPEC IMENOrdering Facility: [facility] Address: [address] [place] [address] Performed By: #### 2 4321-2, HSTNT ####[facility] LABORATORYCLIA [id number] [place] [address] [place] CBC W Auto Differential pane l (Bld)on 08-05-2023 Basophils (Bld) [#/Vol] 0.15 10*3/uL High <0.11 [facility] Comment on above: Order Comment: Specimen Type: BLOOD SPEC IMENOrdering Facility: [facility] Address: [address] [place] [address] Performed By: #### 5 7021-8 ####[facility] LABORATORYCLIA [id number] [place] [address] [place] Basophils/100 WBC (Bld) 1.0 % Normal [facility] Comment on above: Order Comment: Specimen Type: BLOOD SPEC IMENOrdering Facility: [facility] Address: [address] [place] [address] Performed By: #### 5 7021-8 ####[facility]OR[facility] LABORATORYCLIA [id number] [place] [id number] [place] Differential cell count method Nom (Bld) Manual Normal [facility] Comment on above: Order Comment: Specimen Type: BLOOD SPEC IMENOrdering Facility: [facility] Address: [address] [place] [address] Performed By: #### 5 7021-8 ####GEORGE LABORATORYCLIA [id number] [place] [address] [place] Eosinophils (Bld) [#/Vol] 0.15 10*3/uL Normal <0.46 [facility] Comment on above: Order Comment: Specimen Type: BLOOD SPEC IMENOrdering Facility: [facility] Address: [address] [place] [address] Performed By: #### 5 7021-8 ####GEOR[facility] LABORATORYCLIA [id number] [place] [id number] [place] Eosinophils/100 WBC (Bld) 1.0 % Normal [facility] Comment on above: Order Comment: Specimen Type: BLOOD SPEC IMENOrdering Facility: [facility] Address: [address] [place] [address] Performed By: #### 5 7021-8 ####GEORGE LABORATORYCLIA [id number] [address] [place] Erythrocyte distribution width (RBC) [Ratio] 14.6 % Normal 11.5-15.0 [facility] Comment on above: Order Comment: Specimen Type: BLOOD SPEC IMENOrdering Facility: [facility] Address: [address] [place] [address] Performed By: #### 5 7021-8 ####GEOR[facility] LABORATORYCLIA [id number] [place] [address] [place] Hematocrit (Bld) [Volume fraction] 38.5 % Normal 36.0-46.0 [facility] Comment on above: Order Comment: Specimen Type: BLOOD SPEC IMENOrdering Facility: [facility] Address: [address] [place] [address] Performed By: #### 5 7021-8 ####[facility] LABORATORYCLIA [id number] [place] [id number] [place] Hemoglobin (Bld) [Mass/Vol] 11.9 g/dL Normal 11.5-15.5 [facility] Comment on above: Order Comment: Specimen Type: BLOOD SPEC IMENOrdering Facility: [facility] Address: [address] [place] [address] Performed By: #### 5 7021-8 ####GEOR[facility] LABORATORYCLIA [id number] [place] [address] [place] Lymphocytes (Bld) [#/Vol] 2.79 10*3/uL Normal 1.00-4.00 [facility] Comment on above: Order Comment: Specimen Type: BLOOD SPEC IMENOrdering Facility: [facility] Address: [address] [place] [address] Performed By: #### 5 7021-8 ####[facility] LABORATORYCLIA [id number] [address] STATES [facility] Lymphocytes/100 WBC (Bld) 19.0 % Normal [facility] Comment on above: Order Comment: Specimen Type: BLOOD SPEC IMENOrdering Facility: [facility] Address: [address] [place] [address] Performed By: #### 5 7021-8 ####[facility] LABORATORYCLIA [id number] [address] [place] MCH (RBC) [Entitic mass] 29.2 pg Normal 26.0-34.0 [facility] Comment on above: Order Comment: Specimen Type: BLOOD SPEC IMENOrdering Facility: [facility] Address: [address] [place] [address] Performed By: #### 5 7021-8 ####[facility] LABORATORYCLIA [id number] [address] [place] MCHC (RBC) [Mass/Vol] 30.9 g/dL Normal 30.5-36.0 [facility] Comment on above: Order Comment: Specimen Type: BLOOD SPEC IMENOrdering Facility: [facility] Address: [address] [place] [address] Performed By: #### 5 7021-8 ####[facility] LABORATORYCLIA [id number] [place] [id number] [facility] [place] MCV (RBC) [Entitic vol] 94.6 fL Normal 80.0-100.0 [facility] Comment on above: Order Comment: Specimen Type: BLOOD SPEC IMENOrdering Facility: [facility] Address: [address] [place] [address] Performed By: #### 5 7021-8 ####GEOR[facility] LABORATORYCLIA [id number] [place] [id number] [place] Monocytes (Bld) [#/Vol] 0.59 10*3/uL Normal <0.87 [facility] Comment on above: Order Comment: Specimen Type: BLOOD SPEC IMENOrdering Facility: [facility] Address: [address] [place] [address] Performed By: #### 5 7021-8 ####[facility]OR[facility] LABORATORYCLIA [id number] [place] [id number] [place] Monocytes/100 WBC (Bld) 4.0 % Normal [facility] Comment on above: Order Comment: Specimen Type: BLOOD SPEC IMENOrdering Facility: [facility] Address: [address] [place] [address] Performed By: #### 5 7021-8 ####[facility]OR[facility] LABORATORYCLIA [id number] [place] [id number] [place] Neutrophils (Bld) [#/Vol] 11.00 10*3/uL High 1.45-7.50 [facility] Comment on above: Order Comment: Specimen Type: BLOOD SPEC IMENOrdering Facility: [facility] Address: [address] [place] [address] Performed By: #### 5 7021-8 ####[facility]OR[facility] LABORATORYCLIA [id number] [place] [id number] [place] Neutrophils/100 WBC (Bld) 75.0 % Normal [facility] Comment on above: Order Comment: Specimen Type: BLOOD SPEC IMENOrdering Facility: [facility] Address: [address] [place] [address] Performed By: #### 5 7021-8 ####[facility]OR[facility] LABORATORYCLIA [id number] [place] [id number] [place] Nucleated RBC (Bld) [#/Vol] 10*3/uL Normal <0.01 [facility] Comment on above: Order Comment: Specimen Type: BLOOD SPEC IMENOrdering Facility: [facility] Address: [address] [place] [address] Performed By: #### 5 7021-8 ####[facility] LABORATORYCLIA [id number] [place] [id number] [place] Nucleated RBC/100 WBC (Bld) [Ratio] 0.0 /100 WBC Normal [facility] Comment on above: Order Comment: Specimen Type: BLOOD SPEC IMENOrdering Facility: [facility] Address: [address] [place] [address] Performed By: #### 5 7021-8 ####[facility] LABORATORYCLIA [id number] [place] [id number] [place] Platelet mean volume (Bld) [Entitic vol] 9.2 fL Normal 9.0-12.7 [facility] Comment on above: Order Comment: Specimen Type: BLOOD SPEC IMENOrdering Facility: [facility] Address: [address] [place] [address] Performed By: #### 5 7021-8 ####[facility] LABORATORYCLIA [id number] [place] [id number] [place] Platelets (Bld) [#/Vol] 431 10*3/uL High 150-400 [facility] Comment on above: Order Comment: Specimen Type: BLOOD SPEC IMENOrdering Facility: [facility] Address: [address] [place] [address] Performed By: #### 5 7021-8 ####[facility] LABORATORYCLIA [id number] [place] [id number] [place] Platelets Estimate (Bld) [#/Vol] Increased Normal [facility] Comment on above: Order Comment: Specimen Type: BLOOD SPEC IMENOrdering Facility: [facility] Address: [address] [place] [address] Performed By: #### 5 7021-8 ####[facility] LABORATORYCLIA [id number] [place] [id number] [place] RBC (Bld) [#/Vol] 4.07 10*6/uL Normal 3.90-5.20 [facility] Comment on above: Order Comment: Specimen Type: BLOOD SPEC IMENOrdering Facility: [facility] Address: [address] [place] [address] Performed By: #### 5 7021-8 ####[place] LABORATORYCLIA [id number] [place] [id number] [place] [facility]LL M[facility] Reviewed: unremarkable Normal [facility] Comment on above: Order Comment: Specimen Type: BLOOD SPEC IMENOrdering Facility: [facility] Address: [address] [address] Performed By: #### 5 7021-8 ####[place] LABORATORYCLIA [id number] [place] [id number] [place] WBC (Bld) [#/Vol] 14.67 10*3/uL High 3.70-11.00 [facility] Comment on above: Order Comment: Specimen Type: BLOOD SPEC IMENOrdering Facility: [facility] Address: [facility] [place] [address] Performed By: #### 5 7021-8 ####[place] LABORATORYCLIA [id number] [place] [id number] [facility] [place] CONSULT PROGon 08-05-2023 CONSULT PROG HNO ID: [id number] Author: BRIE ROJO APRN.BRAND DESIGNER Service: Pain Management Author Type: Nurse Practitioner [...] OBJECTIVE PERTINENT ROS: ALLERGIES Allergen Reactions Adhes. Ctgl-Mbkn-Sg* Rash Adhesive Tape-Silic* Rash Augmentin [Amoxicil* Diarrhea Keflex [Cephalexin] Rash, Itching Penicillins Hives Ultram [Tramadol Hc* Itching Information retrieved from Allergy section. Is the patient intubated and sedated? No. Numbness?: No Weakness?: No Nausea?: No Vomitting?: No Pruritis?: No Back pain?: No Headache?: No Sedation?: No Confusion/Delirium?: No Other: none Epidural Location: Thoracic Epidural catheter placed: Day of surgery MEDICATIONS: Epidural Medications and OCCASIONAL BABYSITTER Settings Bupivacaine 0.0625% + Fentanyl 2 mcg/mL [...] (CYMBALTA) 60 mg ORAL DAILY phenol 1 [place] (CHLORASEPTIC) 1 [place] MUCOUS MEMBRANE (TOPICAL MOUTH AND THROAT) q [...] SUBCUTANEOUS q (more content not included)... Normal [facility] HIGH SENSITIVITY TROPONIN To n 08-05-2023 Troponin T.cardiac High sensitivity method [Mass/Vol] <6 Normal <12 [facility] Comment on above: Order Comment: Specimen Type: BLOOD SPEC IMENOrdering Facility: [facility] Address: [address] [place] [address] Result Comment: When assessing risk for acute [...] MACE. Performed By: #### 2 4321-2, HSTNT ####[place] LABORATORYCLIA [id number] [address] NURSING PROGon 08-05-2023 NURSING PROG HNO ID: [id number] Author: DIANA PATHAK, RN Service: Radiology Author Type: Registered Nurse Type: Nursing Progress Note Filed: 08/05/2023 11:42 Note Text: Nursing Progress Note Patient Name: Susi Ortiz [address] Location: [address] Daily Note: 1100: Called to floor for difficult IV access. #22g 2 inch IV started to right FA under US guidance. Flushes well with brisk blood return. This note was completed by: Diana Pathak [facility] NURSING PROG HNO ID: [id number] Author: NAVDEEP VANCE, SUSAN Service: ? Author Type: Registered [...] access at bedside and placed peripheral IV. [facility] PT EDon 08-05-2023 PT ED HNO ID: [id number] Author: ROMERO GOOD RD Service: NST-Nutrition Support [...] August 05, 2023 TIME: 12:20 PM PAGER: [facility] ANES PRE-OPon 08-04-2023 ANES PRE-OP HNO ID: [id number] Author: AMANDA ALCANTAR DO Service: Anesthesiology Author [...] - montelukast (SINGULA (more content not included)... [facility] BRIEF OP NOTon 08-04-2023 BRIEF OP NOT HNO ID: [id number] Author: JOE GRANDA MD Service: General Surgery Author Type: Physician Type: Brief Op Note Filed: 08/04/2023 15:27 Note Text: BRIEF OPERATIVE NOTE [facility] LOG ID: [id number] SURGERY/PROCEDURE DATE: 08/04/2023 INCISION/PROCEDURE START TIME: 9:39 AM INCISION CLOSE/PROCEDURE END TIME: 2:39 PM SURGEON(S) AND SANE NURSE(S): Surgeon(s) and Role: * Joe Granda MD [...] SIGNATURE: Som Hampton MD PATIENT NAME: Susi Jeanenship DATE: August 04, 2023 TIME: 3:01 PM [id number] Joe Granda MD Normal [facility] Basic metabolic 2000 panelon 08-04-2023 Anion gap [Moles/Vol] 13 mmol/L Normal 9-18 [facility] Comment on above: Order Comment: Specimen Type: BLOOD SPEC IMENOrdering Facility: [facility] Address: [address] [place] [address] Performed By: #### 1 9123-9, 50424-4, 2777-1 ####[place] LABORATORYCLIA [id number] [place] [address] [place] Calcium [Mass/Vol] 8.5 mg/dL Normal 8.5-10.2 [facility] Comment on above: Order Comment: Specimen Type: BLOOD SPEC IMENOrdering Facility: [facility] Address: [address] [place] [address] Performed By: #### 1 9123-9, 76402-1, 2776- ####[facility] LABORATORYCLIA [id number] [place] [id number] [place] Chloride [Moles/Vol] 101 mmol/L Normal 97-105 [facility] Comment on above: Order Comment: Specimen Type: BLOOD SPEC IMENOrdering Facility: [facility] Address: [address] [place] [address] Performed By: #### 1 9123-9, 29741-2, 2776-06 ####[facility] LABORATORYCLIA [id number] [place] [id number] [place] CO2 [Moles/Vol] 20 mmol/L Low 22-30 [facility] Comment on above: Order Comment: Specimen Type: BLOOD SPEC IMENOrdering Facility: [facility] Address: [address] [place] [address] Performed By: #### 1 9123-9, 54072-9, 2776-06 ####[place] LABORATORYCLIA [id number] [place] [id number] [place] Creatinine [Mass/Vol] 0.69 mg/dL Normal 0.58-0.96 [facility] Comment on above: Order Comment: Specimen Type: BLOOD SPEC IMENOrdering Facility: [facility] Address: [address] [place] [address] Performed By: #### 1 9123-9, 23318-1, 2776-06 ####[place] LABORATORYCLIA [id number] [place] [id number] [place] Creatinine and Glomerular filtration rate.predicted panel (S/P/Bld) 114 mL/min/1.73m??? Normal >=60 [facility] Comment on above: Order Comment: Specimen Type: BLOOD SPEC IMENOrdering Facility: [facility] Address: [address] [place] [address] Result Comment: Janet mated Glomerular Filtration Rate [...] actual GFR. Performed By: #### 1 9123-9, 35993-2, 2776- ####[place] LABORATORYCLIA [id number] [place] [id number] [place] Glucose [Mass/Vol] 137 mg/dL High 74-99 [facility] Comment on above: Order Comment: Specimen Type: BLOOD SPEC IMENOrdering Facility: [facility] Address: [address] [place] [address] Result Comment: The [place] Diabetes Association (ADA) provides guidance for cutoff [...] Standards of Medical Care in Diabetes 2016, [place] [employer] Association. Diabetes Care. 2016.39(Suppl 1). Performed By: #### 1 9123-9, 84063-9, 2776-06 ####[place] LABORATORYCLIA [id number] [place] [id number] [place] Potassium [Moles/Vol] 5.1 mmol/L Normal 3.7-5.1 [facility] Comment on above: Order Comment: Specimen Type: BLOOD SPEC IMENOrdering Facility: [facility] Address: [address] [place] [address] Performed By: #### 1 9123-9, 17086-9, 2777- ####[place] LABORATORYCLIA [id number] [place] [id number] [place] Sodium [Moles/Vol] 134 mmol/L Low 136-144 [facility] Comment on above: Order Comment: Specimen Type: BLOOD SPEC IMENOrdering Facility: [facility] Address: [address] [place] [address] Performed By: #### 1 9123-9, 77810-4, 277- ####[facility] LABORATORYCLIA [id number] [place] [address] [place] Urea nitrogen [Mass/Vol] 7 mg/dL Normal 7-21 [facility] Comment on above: Order Comment: Specimen Type: BLOOD SPEC IMENOrdering Facility: [facility] Address: [address] [place] [address] Performed By: #### 1 9123-9, 76724-1, 2776-06 ####[facility] LABORATORYCLIA [id number] [place] [address] [place] CBC W Auto Differential pane l (Bld)on 08-04-2023 Basophils (Bld) [#/Vol] 0.06 10*3/uL Normal <0.11 [facility] Comment on above: Order Comment: Specimen Type: BLOOD SPEC IMENOrdering Facility: [facility] Address: [address] [place] [address] Performed By: #### 5 7021-8 ####[facility] LABORATORYCLIA [id number] [place] [address] [place] Basophils/100 WBC (Bld) 0.3 % Normal [facility] Comment on above: Order Comment: Specimen Type: BLOOD SPEC IMENOrdering Facility: [facility] Address: [address] [place] [address] Performed By: #### 5 7021-8 ####[facility] LABORATORYCLIA [id number] [place] [id number] [place] Differential cell count method Nom (Bld) Auto Normal [facility] Comment on above: Order Comment: Specimen Type: BLOOD SPEC IMENOrdering Facility: [facility] Address: [address] [place] [address] Performed By: #### 5 7021-8 ####GEORGE LABORATORYCLIA [id number] [place] [address] [place] Eosinophils (Bld) [#/Vol] 0.07 10*3/uL Normal <0.46 [facility] Comment on above: Order Comment: Specimen Type: BLOOD SPEC IMENOrdering Facility: [facility] Address: [address] [place] [address] Performed By: #### 5 7021-8 ####[facility] LABORATORYCLIA [id number] [place] [id number] [facility] [place] Eosinophils/100 WBC (Bld) 0.4 % Normal [facility] Comment on above: Order Comment: Specimen Type: BLOOD SPEC IMENOrdering Facility: [facility] Address: [address] [place] [address] Performed By: #### 5 7021-8 ####GE[place]GE LABORATORYCLIA [id number] [address] [place] Erythrocyte distribution width (RBC) [Ratio] 14.2 % Normal 11.5-15.0 [facility] Comment on above: Order Comment: Specimen Type: BLOOD SPEC IMENOrdering Facility: [facility] Address: [address] [place] [address] Performed By: #### 5 7021-8 ####GEORGE LABORATORYCLIA [id number] [place] [id number] [place] Hematocrit (Bld) [Volume fraction] 40.3 % Normal 36.0-46.0 [facility] Comment on above: Order Comment: Specimen Type: BLOOD SPEC IMENOrdering Facility: [facility] Address: [address] [place] [address] Performed By: #### 5 7021-8 ####[facility] LABORATORYCLIA [id number] [place] [id number] [place] Hemoglobin (Bld) [Mass/Vol] 13.0 g/dL Normal 11.5-15.5 [facility] Comment on above: Order Comment: Specimen Type: BLOOD SPEC IMENOrdering Facility: [facility] Address: [facility] [place] [address] Performed By: #### 5 7021-8 ####GE[facility] LABORATORYCLIA [id number] [place] [address] [place] Immature granulocytes (Bld) [#/Vol] 0.05 10*3/uL Normal <0.10 [facility] Comment on above: Order Comment: Specimen Type: BLOOD SPEC IMENOrdering Facility: [facility] Address: [address] [place] [address] Performed By: #### 5 7021-8 ####GEORGE LABORATORYCLIA [id number] [address] STATES [facility] Immature granulocytes/100 WBC (Bld) 0.3 % Normal [facility] Comment on above: Order Comment: Specimen Type: BLOOD SPEC IMENOrdering Facility: [facility] Address: [address] [place] [address] Performed By: #### 5 7021-8 ####GEORGE LABORATORYCLIA [id number] [place] [address] [place] Lymphocytes (Bld) [#/Vol] 1.82 10*3/uL Normal 1.00-4.00 [facility] Comment on above: Order Comment: Specimen Type: BLOOD SPEC IMENOrdering Facility: [facility] Address: [address] [place] [address] Performed By: #### 5 7021-8 ####GEORGE LABORATORYCLIA [id number] [place] [id number] [place] Lymphocytes/100 WBC (Bld) 9.7 % Normal [facility] Comment on above: Order Comment: Specimen Type: BLOOD SPEC IMENOrdering Facility: [facility] Address: [address] [place] [address] Performed By: #### 5 7021-8 ####GEORGE LABORATORYCLIA [id number] [address] MCH (RBC) [Entitic mass] 29.4 pg Normal 26.0-34.0 [facility] Comment on above: Order Comment: Specimen Type: BLOOD SPEC IMENOrdering Facility: [facility] Address: [address] [place] [address] Performed By: #### 5 7021-8 ####[facility] LABORATORYCLIA [id number] [place] [id number] [place] MCHC (RBC) [Mass/Vol] 32.3 g/dL Normal 30.5-36.0 [facility] Comment on above: Order Comment: Specimen Type: BLOOD SPEC IMENOrdering Facility: [facility] Address: [address] [place] [address] Performed By: #### 5 7021-8 ####[facility] LABORATORYCLIA [id number] [address] [place] MCV (RBC) [Entitic vol] 91.2 fL Normal 80.0-100.0 [facility] Comment on above: Order Comment: Specimen Type: BLOOD SPEC IMENOrdering Facility: [facility] Address: [address] [place] [address] Performed By: #### 5 7021-8 ####[facility] LABORATORYCLIA [id number] [address] [place] Monocytes (Bld) [#/Vol] 1.16 10*3/uL High <0.87 [facility] Comment on above: Order Comment: Specimen Type: BLOOD SPEC IMENOrdering Facility: [facility] Address: [address] [place] [address] Performed By: #### 5 7021-8 ####[facility] LABORATORYCLIA [id number] [address] Monocytes/100 WBC (Bld) 6.2 % Normal [facility] Comment on above: Order Comment: Specimen Type: BLOOD SPEC IMENOrdering Facility: [facility] Address: [address] [place] [address] Performed By: #### 5 7021-8 ####GEORGE LABORATORYCLIA [id number] [place] [address] [place] Neutrophils (Bld) [#/Vol] 15.62 10*3/uL High 1.45-7.50 [facility] Comment on above: Order Comment: Specimen Type: BLOOD SPEC IMENOrdering Facility: [facility] Address: [address] [place] [address] Performed By: #### 5 7021-8 ####GEORGE LABORATORYCLIA [id number] [place] [id number] [place] Neutrophils/100 WBC (Bld) 83.1 % Normal [facility] Comment on above: Order Comment: Specimen Type: BLOOD SPEC IMENOrdering Facility: [facility] Address: [address] [place] [address] Performed By: #### 5 7021-8 ####GEORGE LABORATORYCLIA [id number] [place] [id number] [place] Nucleated RBC (Bld) [#/Vol] 10*3/uL Normal <0.01 [facility] Comment on above: Order Comment: Specimen Type: BLOOD SPEC IMENOrdering Facility: [facility] Address: [address] [place] [address] Performed By: #### 5 7021-8 ####GEORGE LABORATORYCLIA [id number] [place] [id number] [place] Nucleated RBC/100 WBC (Bld) [Ratio] 0.0 /100 WBC Normal [facility] Comment on above: Order Comment: Specimen Type: BLOOD SPEC IMENOrdering Facility: [facility] Address: [address] [place] [address] Performed By: #### 5 7021-8 ####GEORGE LABORATORYCLIA [id number] [place] [id number] [place] Platelet mean volume (Bld) [Entitic vol] 9.2 fL Normal 9.0-12.7 [facility] Comment on above: Order Comment: Specimen Type: BLOOD SPEC IMENOrdering Facility: [facility] Address: [address] [place] [address] Performed By: #### 5 7021-8 ####[place] LABORATORYCLIA [id number] [place] [id number] [place] Platelets (Bld) [#/Vol] 502 10*3/uL High 150-400 [facility] Comment on above: Order Comment: Specimen Type: BLOOD SPEC IMENOrdering Facility: [facility] Address: [address] [place] [address] Performed By: #### 5 7021-8 ####[place] LABORATORYCLIA [id number] [place] [id number] [place] RBC (Bld) [#/Vol] 4.42 10*6/uL Normal 3.90-5.20 [facility] Comment on above: Order Comment: Specimen Type: BLOOD SPEC IMENOrdering Facility: [facility] Address: [address] [place] [address] Performed By: #### 5 7021-8 ####[facility] LABORATORYCLIA [id number] [place] [id number] [place] WBC (Bld) [#/Vol] 18.78 10*3/uL High 3.70-11.00 [facility] Comment on above: Order Comment: Specimen Type: BLOOD SPEC IMENOrdering Facility: [facility] Address: [address] [place] [address] Performed By: #### 5 7021-8 ####[place] LABORATORYCLIA [id number] [place] [id number] [facility] [place] HIGH SENSITIVITY TROPONIN To n 08-04-2023 Troponin T.cardiac High sensitivity method [Mass/Vol] 7 ng/L Normal <12 [facility] Comment on above: Order Comment: Specimen Type: BLOOD SPEC IMENOrdering Facility: [facility] Address: [address] [place] [address] Result Comment: When assessing risk for acute [...] day MACE. Performed By: #### H STNT ####[facility] LABORATORYCLIA [id number] [place] [id number] [place] Magnesium SerPl-mCncon 08-04 Magnesium [Mass/Vol] 1.8 mg/dL Normal 1.7-2.3 [facility] Comment on above: Order Comment: Specimen Type: BLOOD SPEC IMENOrdering Facility: [facility] Address: [facility] [place] [address] Performed By: #### 1 9123-9, 02273-8, 2777-1 ####[facility] LABORATORYCLIA [id number] [place] [address] [place] NURSING PROGon 08-04-2023 NURSING PROG HNO ID: [id number] Author: NAVDEEP VANCE RN Service: ? Author Type: Registered Nurse Type: Nursing Progress Note Filed: 08/04/2023 17:06 Note Text: Transfer Note: PATIENT NAME: Susi Ortiz Patient Location: [place] [address]/[place] [address] Room: [place] [address] Patient transferred into room/unit PK32 in stable condition. Actions taken: No futher actions taken at this time. Will continue to monitor and check with patient. 1705: Sent text page to surgical team, pt has epidural and need order for tele and pulse ox. [facility] NURSING PROG HNO ID: [id number] Author: KINGA HERNANDEZ RN Service: Nursing Author Type: Registered Nurse Type: Nursing Progress Note Filed: 08/04/2023 07:38 Note Text: 0700- Patient refusing PANCHO hose and SCDs at this time. 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 [facility] NURSING PROG HNO ID: [id number] Author: KIEL MALONEY RN Service: Pain Management Author Type: Registered Nurse Type: Nursing Progress Note Filed: 08/04/2023 08:16 Note Text: THORACIC EPIDURAL ( T8) Dr. Lopez and Dr. Chiartas Patient verbalized understanding of epidural procedure. Patient tolerated procedure very well. [facility] NURSING PROG HNO ID: [id number] Author: KINGA HERNANDEZ RN Service: Nursing Author Type: Registered Nurse Type: Nursing Progress Note Filed: 08/04/2023 06:40 Note Text: PATIENT EDUCATION TOPIC: PROCEDURE / SURGERY: Pre-op Teaching: Surgical Safety Principles PATIENT NAME: Susi Ortiz PATIENT LOCATION: [place] [facility] [place] READINESS TO LEARN COGNITIVE ABILITY: Alert and [...] (RECOMMENDATION): None Electronically Signed By: Kinga Hernandez [facility] OPERATIVE NOon 08-04-2023 OPERATIVE NO HNO ID: [id number] Author: JOE GRANDA MD Service: General Surgery Author Type: Physician Type: Operative Report Filed: 08/05/2023 15:18 Note Text: [facility] - Operative Report SUSI ORTIZ : 1985 AGE: 38. SEX: F PATIENT TYPE: I HOSP SVC: Surgical LOCATION: [facility] ATTENDING PHYSICIAN: Joe Granda M.D. CSN NUMBER: [id number] DATE OF SURGERY/PROCEDURE: 08/04/2023 INCISION/PROCEDURE START TIME: 9:39 AM INCISION CLOSE/PROCEDURE END TIME: 2:39 PM PREOPERATIVE DIAGNOSIS: 1. Persistent morbid obesity. 2. 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 3. History of open splenectomy. POSTOPERATIVE DIAGNOSIS: 1. Persistent morbid obesity. 2. 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 3. History of open splenectomy. SURGEON: Joe Granda M.D. SANE NURSE: 1. Cony Soler MD. 2. Som Hampton [...] during the duodenal dissection. Joe Granda M.D. JRG:[id number] /[id number] D: (more content not included)... Normal [facility] Phosphate SerPl-mCncon 08-04 Phosphate [Mass/Vol] 3.9 mg/dL Normal 2.7-4.8 [facility] Comment on above: Order Comment: Specimen Type: BLOOD SPEC IMENOrdering Facility: [facility] Address: [address] [place] [address] Performed By: #### 1 9123-9, 36369-1, 2777-1 ####[facility] LABORATORYCLIA [id number] [address] [place] CNPNon 08-03-2023 CNPN Telephone (GENI) ORTIZSUSI BERRY ([id number]) 1985 F FNS Date Time Provider Department 08/03/23 GEN CURRY [employer] During your visit today, we recorded the following information about you: Gen Curry, RN 08/03/2023 5:00 PM Signed [facility] COORD[facility] SURGERY PRE-OP EDUCATION NOTE Phoned patient to reinforce prior pre-op instruction and answer any questions she might have. No answer. Left brief vmm including contact info for this RN and requested call back. Allergies As of Date: 08/03/2023 Noted Allergy Reaction ADHES. [id number] 03/13/2015 2 - Rash ADHESIVE TAPE-SILICONES 05/06/2019 [...] Status:Closed by GEN CURRY on 08/03/23 Normal [facility] HISTORY PHYSICALon HISTORY PHYSICAL HNO ID: [id number] Author: NONI SUMMERS APRN.BRAND DESIGNER Service: ? Author Type: Nurse Practitioner Type: [...] on CPAP Assessment: Noncompliant with CPAP Thrombocytosis ([facility]) Assessment: chronic leukocytosis and thrombocytosis Most recent labs CBC with diff: WBC 13.23 07/13/2023 Platelet Count 555 07/13/2023 Bipolar affective disorder ([facility]) Assessment: managed on medication by PCP [...] orally disintegrat (more content not included)... Normal [facility] TYPE AND SCREEN,30 DAYon ABO A Normal [facility] Comment on above: Order Comment: Specimen Type: BLOOD SPEC IMEN [facility] Address: [address] [place] [address] Performed By: #### 5 8410-2 #### [facility] CLIA [id number] [address] [place] [address] HISTORICAL AB SCR STATUS Negative Normal [facility] Comment on above: Order Comment: Specimen Type: BLOOD SPEC IMEN [facility] Address: [address] [place] [address] Performed By: #### 5 8410-2 #### [facility] CLIA [id number] [address] [place] [address] Rh Nom (Bld) Positive Normal [facility] Comment on above: Order Comment: Specimen Type: BLOOD SPEC IMEN [facility] Address: [address] [place] [address] Performed By: #### 5 8410-2 #### [facility] CLIA [id number] [address] [place], [place] [address] CNOVon 07-20-2023 CNOV Office Visit (BMIREJ ) SUSI ORTIZ ([id number]) 1985 F FNS Date Time Provider Department 07/20/23 11:50 AM JOE GRANDA During your visit today, we recorded the following information about you: Pulse Blood pressure Weight Height 77/minute 121/78 175 kg 1.626 m Last Period 07/08/23 Joe Granda MD 07/20/2023 2:06 PM Signed SURGERY PREOPERATIVE VISIT NOTE Name: Susi Ortiz Medical Record: [id number] Encounter No.: [id number] Susi Ortiz is a 38 year old [...] use: Never ALLERGIES: ALLERGIES Allergen Reactions Adhes. Ikgz-Nxlu-Rg* Rash Adhesive Tape-Silic* Rash Augmentin [Amoxicil* Diarrhea [...] regarding unsatisfactory weight loss as well as custodial weight regain. I have also discussed medical complications including urinary tract infections, myocardial infarction, DVT, PE, prolonged ICU stay, and possible postoperative mechanical ventilation and the risk of mortality. I have reviewed with this patient needed nutritional changes, post-operative recovery, and the potential (more content not included)... Normal [facility] CBC W Auto Differential catracho moreno (Bld)on 07-13-2023 Basophils (Bld) [#/Vol] 0.11 10*3/uL High <0.11 [facility] Comment on above: Order Comment: Specimen Type: BLOOD SPEC IMEN Ordering Facility: [facility] Address: [address] [place] [address] Performed By: #### 5 8410-2 #### [facility] CLIA [id number] [address] [place] [address] 33628 Basophils/100 WBC (Bld) 0.8 % Normal [facility] Comment on above: Order Comment: Specimen Type: BLOOD SPEC IMEN Ordering Facility: [facility] Address: [address] [place] [address] Performed By: #### 5 8410-2 #### [facility] CLIA [id number] [address] [place] [address] 52280 Differential cell count method Nom (Bld) Auto Normal [facility] Comment on above: Order Comment: Specimen Type: BLOOD SPEC IMEN Ordering Facility: [facility] Address: [address] [place] [address] Performed By: #### 5 8410-2 #### [facility] CLIA [id number] [address] [place] [address] 24435 Eosinophils (Bld) [#/Vol] 0.31 10*3/uL Normal <0.46 [facility] Comment on above: Order Comment: Specimen Type: BLOOD SPEC IMEN Ordering Facility: [facility] Address: [address] [place] [address] Performed By: #### 5 8410-2 #### [facility] CLIA [id number] [address] [place] [address] 30304 Eosinophils/100 WBC (Bld) 2.3 % Normal [facility] Comment on above: Order Comment: Specimen Type: BLOOD SPEC IMEN Ordering Facility: [facility] Address: [address] [place] [address] Performed By: #### 5 8410-2 #### [facility] CLIA [id number] [address] [place] [address] 89790 Erythrocyte distribution width (RBC) [Ratio] 14.1 % Normal 11.5-15.0 [facility] Comment on above: Order Comment: Specimen Type: BLOOD SPEC IMEN Ordering Facility: [facility] Address: [address] [place] [address] Performed By: #### 5 8410-2 #### [facility] CLIA [id number] [address] [place] [address] 36858 Hematocrit (Bld) [Volume fraction] 45.8 % Normal 36.0-46.0 [facility] Comment on above: Order Comment: Specimen Type: BLOOD SPEC IMEN Ordering Facility: [facility] Address: [address] [place] [address] Performed By: #### 5 8410-2 #### [facility] CLIA [id number] [address] [place] [address] 81669 Hemoglobin (Bld) [Mass/Vol] 14.7 g/dL Normal 11.5-15.5 [facility] Comment on above: Order Comment: Specimen Type: BLOOD SPEC IMEN Ordering Facility: [facility] Address: [address] [place] [address] Performed By: #### 5 8410-2 #### [facility] CLIA [id number] [address] [place] [address] 67221 Immature granulocytes (Bld) [#/Vol] 0.05 10*3/uL Normal <0.10 [facility] Comment on above: Order Comment: Specimen Type: BLOOD SPEC IMEN Ordering Facility: [facility] Address: [address] [place] [address] Performed By: #### 5 8410-2 #### [facility] CLIA [id number] [address] [place] [address] 70948 Immature granulocytes/100 WBC (Bld) 0.4 % Normal [facility] Comment on above: Order Comment: Specimen Type: BLOOD SPEC IMEN Ordering Facility: [facility] Address: [address] [place] [address] [place] [address] Performed By: #### 5 8410-2 #### [facility] CLIA [id number] [address] [place] [address] 95584 Lymphocytes (Bld) [#/Vol] 3.61 10*3/uL Normal 1.00-4.00 [facility] Comment on above: Order Comment: Specimen Type: BLOOD SPEC IMEN Ordering Facility: [facility] Address: [address] [place] [address] Performed By: #### 5 8410-2 #### [facility] CLIA [id number] [address] [place] [address] 84508 Lymphocytes/100 WBC (Bld) 27.3 % Normal [facility] Comment on above: Order Comment: Specimen Type: BLOOD SPEC IMEN Ordering Facility: [facility] Address: [address] [place] [address] Performed By: #### 5 8410-2 #### [facility] CLIA [id number] [address] [place] [address] 50036 MCH (RBC) [Entitic mass] 28.9 pg Normal 26.0-34.0 [facility] Comment on above: Order Comment: Specimen Type: BLOOD SPEC IMEN Ordering Facility: [facility] Address: [address] [place] [address] Performed By: #### 5 8410-2 #### [facility] CLIA [id number] [address] [place] [address] 16357 MCHC (RBC) [Mass/Vol] 32.1 g/dL Normal 30.5-36.0 [facility] Comment on above: Order Comment: Specimen Type: BLOOD SPEC IMEN Ordering Facility: [facility] Address: [address] [place] [address] Performed By: #### 5 8410-2 #### [facility] CLIA [id number] [address] [place] [address] 88140 MCV (RBC) [Entitic vol] 90.0 fL Normal 80.0-100.0 [facility] Comment on above: Order Comment: Specimen Type: BLOOD SPEC IMEN Ordering Facility: [facility] Address: [address] [place] [address] Performed By: #### 5 8410-2 #### [facility] CLIA [id number] [address] [place] [address] 65829 Monocytes (Bld) [#/Vol] 1.10 10*3/uL High <0.87 [facility] Comment on above: Order Comment: Specimen Type: BLOOD SPEC IMEN Ordering Facility: [facility] Address: [address] [place] [address] Performed By: #### 5 8410-2 #### [facility] CLIA [id number] [address] [place] [address] 20095 Monocytes/100 WBC (Bld) 8.3 % Normal [facility] Comment on above: Order Comment: Specimen Type: BLOOD SPEC IMEN Ordering Facility: [facility] Address: [address] [place] [address] Performed By: #### 5 8410-2 #### [facility] CLIA [id number] [address] [place] [address] 70141 Neutrophils (Bld) [#/Vol] 8.05 10*3/uL High 1.45-7.50 [facility] Comment on above: Order Comment: Specimen Type: BLOOD SPEC IMEN Ordering Facility: [facility] Address: [address] [place] [address] Performed By: #### 5 8410-2 #### [facility] CLIA [id number] [address] [place] [address] 59768 Neutrophils/100 WBC (Bld) 60.9 % Normal [facility] Comment on above: Order Comment: Specimen Type: BLOOD SPEC IMEN Ordering Facility: [facility] Address: [address] [place] [address] Performed By: #### 5 8410-2 #### [facility] CLIA [id number] [address] [place] [address] 56979 Nucleated RBC (Bld) [#/Vol] 10*3/uL Normal <0.01 [facility] Comment on above: Order Comment: Specimen Type: BLOOD SPEC IMEN Ordering Facility: [facility] Address: [address] [place] [address] Performed By: #### 5 8410-2 #### [facility] CLIA [id number] [address] [place] [address] Nucleated RBC/100 WBC (Bld) [Ratio] 0.0 /100 WBC Normal [facility] Comment on above: Order Comment: Specimen Type: BLOOD SPEC IMEN Ordering Facility: [facility] Address: [address] [place] [address] Performed By: #### 5 8410-2 #### [facility] CLIA [id number] [address] [place] [address] 90455 Platelet mean volume (Bld) [Entitic vol] 9.1 fL Normal 9.0-12.7 [facility] Comment on above: Order Comment: Specimen Type: BLOOD SPEC IMEN Ordering Facility: [facility] Address: [address] [place] [address] Performed By: #### 5 8410-2 #### [facility] CLIA [id number] [address] [place] [address] 89736 Platelets (Bld) [#/Vol] 555 10*3/uL High 150-400 [facility] Comment on above: Order Comment: Specimen Type: BLOOD SPEC IMEN Ordering Facility: [facility] Address: [address] [place] [address] Performed By: #### 5 8410-2 #### [facility] CLIA [id number] [address] [place] [address] 25123 RBC (Bld) [#/Vol] 5.09 10*6/uL Normal 3.90-5.20 [facility] Comment on above: Order Comment: Specimen Type: BLOOD SPEC IMEN Ordering Facility: [facility] Address: [address] [place] [address] Performed By: #### 5 8410-2 #### [facility] CLIA [id number] [address] [place] [address] 82635 WBC (Bld) [#/Vol] 13.23 10*3/uL High 3.70-11.00 [facility] Comment on above: Order Comment: Specimen Type: BLOOD SPEC IMEN Ordering Facility: [facility] Address: [address] [place] [address] Performed By: #### 5 8410-2 #### [facility] CLIA [id number] [address] [place] [address] 23251 Comprehensive metabolic 2000 panelon 07-13-2023 Albumin [Mass/Vol] 4.5 g/dL Normal 3.9-4.9 [facility] Comment on above: Order Comment: Specimen Type: BLOOD SPEC IMEN Ordering Facility: [facility] Address: [address] [place] [address] Performed By: #### 2 276-4, 92839-7 #### [facility] CLIA [id number] [address] [place] [address] [place] ALP [Catalytic activity/Vol] 124 U/L High 34-123 [facility] Comment on above: Order Comment: Specimen Type: BLOOD SPEC IMEN Ordering Facility: [facility] Address: [address] [place] [address] Performed By: #### 2 276-4, 95022-2 #### [facility] CLIA [id number] [address] [place] [address] [place] ALT [Catalytic activity/Vol] 18 U/L Normal 7-38 [facility] Comment on above: Order Comment: Specimen Type: BLOOD SPEC IMEN Ordering Facility: [facility] Address: [address] [place] [address] Performed By: #### 2 276-4, 36354-0 #### [facility] CLIA [id number] [address] [place] [address] [place] Anion gap [Moles/Vol] 11 mmol/L Normal 9-18 [facility] Comment on above: Order Comment: Specimen Type: BLOOD SPEC IMEN Ordering Facility: [facility] Address: [address] [place] [address] Performed By: #### 2 276-4, 42803-9 #### [facility] CLIA [id number] [address] [place] [address] [place] AST [Catalytic activity/Vol] 21 U/L Normal 13-35 [facility] Comment on above: Order Comment: Specimen Type: BLOOD SPEC IMEN Ordering Facility: [facility] Address: [address] [place] [address] Performed By: #### 2 276-4, 63723-3 #### [facility] CLIA [id number] [address] [place] [address] [place] Bilirubin [Mass/Vol] 0.3 mg/dL Normal 0.2-1.3 [facility] Comment on above: Order Comment: Specimen Type: BLOOD SPEC IMEN Ordering Facility: [facility] Address: [address] [place] [address] Performed By: #### 2 276-4, 92985-1 #### [facility] CLIA [id number] [address] [place] [address] [place] Calcium [Mass/Vol] 10.0 mg/dL Normal 8.5-10.2 [facility] Comment on above: Order Comment: Specimen Type: BLOOD SPEC IMEN Ordering Facility: [facility] Address: [address] [place] [address] Performed By: #### 2 276-4, 36360-3 #### [facility] CLIA [id number] [address] [place] [address] [place] Chloride [Moles/Vol] 101 mmol/L Normal 97-105 [facility] Comment on above: Order Comment: Specimen Type: BLOOD SPEC IMEN Ordering Facility: [facility] Address: [address] [place] [address] Performed By: #### 2 276-4, 97074-4 #### [facility] CLIA [id number] [address] [place] [address] [place] CO2 [Moles/Vol] 25 mmol/L Normal 22-30 [facility] Comment on above: Order Comment: Specimen Type: BLOOD SPEC IMEN Ordering Facility: [facility] Address: [address] [place] [address] Performed By: #### 2 276-4, 30555-9 #### [facility] CLIA [id number] [address] [place] [address] [place] Creatinine [Mass/Vol] 0.73 mg/dL Normal 0.58-0.96 [facility] Comment on above: Order Comment: Specimen Type: BLOOD SPEC IMEN Ordering Facility: [facility] Address: [address] [place] [address] Performed By: #### 2 276-4, 69666-8 #### [facility] CLIA [id number] [address] [place] [address] [place] Creatinine and Glomerular filtration rate.predicted panel (S/P/Bld) 108 mL/min/1.73m??? Normal >=60 [facility] Comment on above: Order Comment: Specimen Type: BLOOD SPEC IMEN Ordering Facility: [facility] Address: [address] [place] [address] Result Comment: Janet mated Glomerular Filtration Rate [...] actual GFR. Performed By: #### 2 276-4, 48025-6 #### [facility] CLIA [id number] [address] [place] [address] [place] Glucose [Mass/Vol] 115 mg/dL High 74-99 [facility] Comment on above: Order Comment: Specimen Type: BLOOD SPEC IMEN Ordering Facility: [facility] Address: [address] [place] [address] Result Comment: The [place] [employer] (ADA) provides guidance for cutoff [...] Standards of Medical Care in Diabetes 2016, [place] [employer]. Diabetes Care. 2016.39(Suppl 1). Performed By: #### 2 276-4, 30302-3 #### [facility] CLIA [id number] [address] [place] [address] [place] Potassium [Moles/Vol] 4.3 mmol/L Normal 3.7-5.1 [facility] Comment on above: Order Comment: Specimen Type: BLOOD SPEC IMEN Ordering Facility: [facility] Address: [address] [place] [address] Performed By: #### 2 276-4, 36574-6 #### [facility] CLIA [id number] [address] [place] [address] [place] Protein [Mass/Vol] 8.1 g/dL High 6.3-8.0 [facility] Comment on above: Order Comment: Specimen Type: BLOOD SPEC IMEN Ordering Facility: [facility] Address: [address] [place] [address] Performed By: #### 2 276-4, 29856-4 #### [facility] CLIA [id number] [address] [place], [place] [address] [place] Sodium [Moles/Vol] 137 mmol/L Normal 136-144 [facility] Comment on above: Order Comment: Specimen Type: BLOOD SPEC IMEN Ordering Facility: [facility] Address: [address] [place] [address] Performed By: #### 2 276-4, 61847-7 #### [facility] CLIA [id number] [address] [place] [address] [place] Urea nitrogen [Mass/Vol] 10 mg/dL Normal 7-21 [facility] Comment on above: Order Comment: Specimen Type: BLOOD SPEC IMEN Ordering Facility: [facility] Address: [facility] [place] [address] Performed By: #### 2 276-4, 53772-8 #### [facility] CLIA [id number] [address] [place] [address] [place] Basic metabolic 2000 panelon 04-01-2023 Anion gap [Moles/Vol] 10 mmol/L Normal 9-18 [facility] Comment on above: Order Comment: Specimen Type: BLOOD SPEC IMENOrdering Facility: [facility] Address: [address] Performed By: #### 2 4321-2 ####[facility] [id number] [place] [address] [place] Calcium [Mass/Vol] 9.1 mg/dL Normal 8.5-10.2 [facility] Comment on above: Order Comment: Specimen Type: BLOOD SPEC IMENOrdering Facility: [facility] Address: [address] Performed By: #### 2 4321-2 ####[facility]ORY[facility] [id number] [place] [address] [place] Chloride [Moles/Vol] 102 mmol/L Normal 97-105 [facility] Comment on above: Order Comment: Specimen Type: BLOOD SPEC IMENOrdering Facility: [facility] Address: [address] Performed By: #### 2 4321-2 ####[facility] [id number] [place] [id number] [place] [facility] CO2 [Moles/Vol] 25 mmol/L Normal 22-30 [facility] Comment on above: Order Comment: Specimen Type: BLOOD SPEC IMENOrdering Facility: [facility] Address: [address] [place] [address] Performed By: #### 2 4321-2 ####[facility]ATORYCLIA [id number] [address] Creatinine [Mass/Vol] 0.59 mg/dL Normal 0.58-0.96 [facility] Comment on above: Order Comment: Specimen Type: BLOOD SPEC IMENOrdering Facility: [facility] Address: [address] [place] [address] Performed By: #### 2 4321-2 ####[facility]ATORYCLIA [id number] [address] Creatinine and Glomerular filtration rate.predicted panel (S/P/Bld) 119 mL/min/1.73m??? Normal >=60 [facility] Comment on above: Order Comment: Specimen Type: BLOOD SPEC IMENOrdering Facility: [facility] Address: [address] [place] [address] Result Comment: Janet mated Glomerular Filtration Rate [...] actual GFR. Performed By: #### 2 4321-2 ####[facility] [id number] [address] Glucose [Mass/Vol] 130 mg/dL High 74-99 [facility] Comment on above: Order Comment: Specimen Type: BLOOD SPEC IMENOrdering Facility: [facility] Address: [address] [place] [address] Result Comment: The [place] Diabetes [employer] (ADA) provides guidance for cutoff [...] Standards of Medical Care in Diabetes 2016, [place] [employer]. Diabetes Care. 2016.39(Suppl 1). Performed By: #### 2 4321-2 ####[facility]ORATORYCLIA [id number] [place] [address] [place] Potassium [Moles/Vol] 4.2 mmol/L Normal 3.7-5.1 [facility] Comment on above: Order Comment: Specimen Type: BLOOD SPEC IMENOrdering Facility: [facility] Address: [address] [place] [address] Performed By: #### 2 4321-2 ####[facility]ORY[facility] [id number] [place] [address] [place] Sodium [Moles/Vol] 137 mmol/L Normal 136-144 [facility] Comment on above: Order Comment: Specimen Type: BLOOD SPEC IMENOrdering Facility: [facility] Address: [address] [place] [address] Performed By: #### 2 4321-2 ####[facility]ORY[facility] [id number] [place] [address] [place] Urea nitrogen [Mass/Vol] 5 mg/dL Low 7-21 [facility] Comment on above: Order Comment: Specimen Type: BLOOD SPEC IMENOrdering Facility: [facility] Address: [address] [place] [address] Performed By: #### 2 4321-2 ####[facility] LABORATORYCLIA [id number] [address] CBC panel Auto (Bld)on 04-01 Erythrocyte distribution width (RBC) [Ratio] 15.1 % High 11.5-15.0 [facility] Comment on above: Order Comment: Specimen Type: BLOOD SPEC IMENOrdering Facility: [facility] Address: [address] [place] [address] Performed By: #### 5 8410-2 ####[facility]ORYCL[facility] [id number] [address] Hematocrit (Bld) [Volume fraction] 39.2 % Normal 36.0-46.0 [facility] Comment on above: Order Comment: Specimen Type: BLOOD SPEC IMENOrdering Facility: [facility] Address: [address] [place] [address] Performed By: #### 5 8410-2 ####[facility] LABORATORYCLIA [id number] [address] Hemoglobin (Bld) [Mass/Vol] 12.7 g/dL Normal 11.5-15.5 [facility] Comment on above: Order Comment: Specimen Type: BLOOD SPEC IMENOrdering Facility: [facility] Address: [address] [place] [address] Performed By: #### 5 8410-2 ####[facility]ORYCLIA [id number] [address] MCH (RBC) [Entitic mass] 29.3 pg Normal 26.0-34.0 [facility] Comment on above: Order Comment: Specimen Type: BLOOD SPEC IMENOrdering Facility: [facility] Address: [address] [place] [address] Performed By: #### 5 8410-2 ####[facility] LABORATORYCLIA [id number] [address] MCHC (RBC) [Mass/Vol] 32.4 g/dL Normal 30.5-36.0 [facility] Comment on above: Order Comment: Specimen Type: BLOOD SPEC IMENOrdering Facility: [facility] Address: [address] [place], [place] [address] Performed By: #### 5 8410-2 ####[facility]ORYCLIA [id number] [place] [id number] [facility] [place] MCV (RBC) [Entitic vol] 90.3 fL Normal 80.0-100.0 [facility] Comment on above: Order Comment: Specimen Type: BLOOD SPEC IMENOrdering Facility: [facility] Address: [address] [place] [address] Performed By: #### 5 8410-2 ####[facility]ORYCLIA [id number] [place] [address] [place] Nucleated RBC (Bld) [#/Vol] 10*3/uL Normal <0.01 [facility] Comment on above: Order Comment: Specimen Type: BLOOD SPEC IMENOrdering Facility: [facility] Address: [address] [place] [address] Performed By: #### 5 8410-2 ####[facility]ORYCLIA [id number] [place] [address] [place] Platelet mean volume (Bld) [Entitic vol] 9.7 fL Normal 9.0-12.7 [facility] Comment on above: Order Comment: Specimen Type: BLOOD SPEC IMENOrdering Facility: [facility] Address: [address] [place] [address] Performed By: #### 5 8410-2 ####[facility]ORYCLIA [id number] [place] [address] [place] Platelets (Bld) [#/Vol] 463 10*3/uL High 150-400 [facility] Comment on above: Order Comment: Specimen Type: BLOOD SPEC IMENOrdering Facility: [facility] Address: [address] Performed By: #### 5 8410-2 ####[facility]ORYCLIA [id number] [place] [address] [place] RBC (Bld) [#/Vol] 4.34 10*6/uL Normal 3.90-5.20 [facility] Comment on above: Order Comment: Specimen Type: BLOOD SPEC IMENOrdering Facility: [facility] Address: [address] [place] [address] Performed By: #### 5 8410-2 ####[facility]ORYCLIA [id number] [place] [address] [place] WBC (Bld) [#/Vol] 15.94 10*3/uL High 3.70-11.00 [facility] Comment on above: Order Comment: Specimen Type: BLOOD SPEC IMENOrdering Facility: [facility] Address: [address] Performed By: #### 5 8410-2 ####[facility]ATORYCLIA [id number] [place] [id number] [facility] NURSING PROGon 04-01-2023 NURSING PROG HNO ID: [id number] Author: Susi Ruffin RN Service: Nursing Author Type: Registered Nurse Type: Nursing Progress Note Filed: 04/01/2023 4:52 PM Note Text: Daily Note 1645 Pt discharged in stable condition and all of belongings left with pt. Discussed discharge paperwork, follow-up appointments, and clarified questions. IV removed and transport called to wheel pt out. [facility] NURSING PROG HNO ID: [id number] Author: Hina Monet RN Service: ? Author Type: Registered Nurse Type: Nursing Progress Note Filed: 04/01/2023 3:24 AM Note Text: Pt tolerating clears. Given oxycodone twice tonight for abd pain. States passing flatus. up to BR with standby assist. Steady, stable. [facility] PT EDon 04-01-2023 PT ED HNO ID: [id number] Author: Romero Good RD Service: NST-Nutrition Support [...] SIGNATURE: Romero Good RD PATIENT NAME: Susi Ortiz DATE: April 01, 2023 TIME: 12:23 PM PAGER: [facility] ANES POSTPROC EVALon 023 ANES POSTPROC EVAL HNO ID: [id number] Author: Darrel Conklin MD Service: Anesthesiology Author Type: Anesthesiologist Type: Anesthesia Postprocedure Evaluation Filed: 03/31/2023 2:40 PM Note Text: POST ANESTHESIA EVALUATION NOTE : 1985 Procedure Summary Date: 03/31/23 Room / Location: OR / OR Anesthesia Start: 1023 Anesthesia Stop: 1308 [...] March 31, 2023 TIME: 2:40 PM CSN: [id number] [facility] ANES PRE-OPon 03-31-2023 ANES PRE-OP HNO ID: [id number] Author: Darrel Conklin MD Service: Anesthesiology Author [...] Naqvi Ortiz DATE: March 31, 2023 TIME: 9:13 AM CSN: [id number] [facility] BRIEF OP NOTon 03-31-2023 BRIEF OP NOT HNO ID: [id number] Author: Joe Abraham MD Service: General Surgery Author Type: Resident Type: Brief Op Note Filed: 03/31/2023 12:53 PM Note Text: Attestation signed by Joe Granda MD at 03/31/2023 2:33 PM [id number] Joe Granda MD GENERAL SURGERY BRIEF OP NOTE LOG ID: [id number] Surgery/Procedure Date: 03/31/2023 Incision/Procedure Start Time: 11:11 AM Incision Close/Procedure End Time: 12:52 PM Surgeon(s) and Breaker Oiler(s): Surgeon(s) and Role: * Joe Granda MD [...] 31, 2023 TIME: 12:52 PM PAGER/CONTACT #: [phone] [facility] NURSING PROGon 03-31-2023 NURSING PROG HNO ID: [id number] Author: Susi Ruffin RN Service: Nursing Author Type: Registered Nurse Type: Nursing Progress Note Filed: 03/31/2023 5:08 PM Note Text: Transfer Note: PATIENT NAME: Susi Ortiz Patient Location: [place] [address]/[id number] Room: [place] [address] Patient transferred in stable condition. Actions taken: Report given/called to [facility]. Orders signed and held were transferred over. [facility] NURSING PROG HNO ID: [id number] Author: Cathleen Hubbard RN Service: Nursing Author Type: Registered Nurse Type: Nursing Progress Note Filed: 03/31/2023 8:48 AM Note Text: PATIENT EDUCATION TOPIC: PROCEDURE / SURGERY: Pre-op Teaching: Logistics Protocols PATIENT NAME: Susi Ortiz PATIENT LOCATION: [place]/ [place] READINESS TO LEARN COGNITIVE ABILITY: Alert and [...] (RECOMMENDATION): None Electronically Signed By: Cathleen Hubbard [facility] OPERATIVE NOon 03-31-2023 OPERATIVE NO HNO ID: [id number] Author: Joe Granda MD Service: General Surgery Author Type: Physician Type: Operative Report Filed: 04/09/2023 3:22 PM Note Text: [facility] - Operative Report SUSI ORTIZ : 1985 AGE: 37. SEX: F PATIENT TYPE: I HOSP SVC: Surgical LOCATION: [facility] ATTENDING PHYSICIAN: Joe Granda M.D. CSN NUMBER: [id number] DATE OF SURGERY/PROCEDURE: 03/31/2023 INCISION/PROCEDURE START TIME: [...] of sleeve leak. SURGEON: Joe Granda M.D. SANE NURSE: Joe Abraham. SURGERY/PROCEDURE: Laparoscopic enterolysis. ANESTHESIA: General [...] Monocryl an (more content not included)... Normal [facility] XR ankle LT min 3V*on 2022 XR ankle LT min 3V* [facility] [employer] Other XR ankle LT min 3V* [facility] [employer] Other XR ankle LT min 3V* [address] [facility] [employer] Other XR ankle LT min 3V* [place] [address] [employer] Other XR ankle LT min 3V* XRay Report [employer] Other XR ankle LT min 3V* Signed [employer] Other XR ankle LT min 3V* Patient: Susi Ortiz MR#: M [employer] Other XR ankle LT min 3V* [id number] [employer] Other XR ankle LT min 3V* : 1985 Acct:[id number] [employer] Other XR ankle LT min 3V* Age/Sex: 37 / F ADM Date: 12/13/22 [employer] Other XR ankle LT min 3V* Loc: XDUCLY Room: Type: REG CLI [employer] Other XR ankle LT min 3V* Attending Dr: Linda South CLINICAL NEUROPSYCHOLOGIST [employer] Other XR ankle LT min 3V* Copies to: Linda South CLINICAL NEUROPSYCHOLOGIST [employer] Other XR ankle LT min 3V* Ordering Provider: Linda South APRN [employer] Other XR ankle LT min 3V* Date of Service: 12/13/22 [employer] Other XR ankle LT min 3V* XR/XR ankle LT min 3V*: Acute left ankle pain [employer] Other XR ankle LT min 3V* LEFT ANKLE - 3 views [employer] Other XR ankle LT min 3V* CLINICAL DATA: Patient felt a pop at the ankle while walking this morning. Lateral pain and [employer] [facility] [employer] Other XR ankle LT min 3V* swelling. [employer] Other XR ankle LT min 3V* COMPARISON: LEFT FOOT 11/13/2021 [employer] Other XR ankle LT min 3V* AP, lateral and oblique views were obtained. There is no evidence of fracture or dislocation. [employer] Other XR ankle LT min 3V* The talar dome is intact. Posterior and plantar calcaneal spurs are visualized. There is diffuse [employer] Other XR ankle LT min 3V* soft tissue prominence related to body habitus. [employer] Other XR ankle LT min 3V* XR/XR ankle LT min 3V* [employer] Other XR ankle LT min 3V* IMPRESSION: [employer] Other XR ankle LT min 3V* NO ACUTE BONY FINDINGS. [employer] Other XR ankle LT min 3V* Impression dictated by: Diana Rojas M.D.12/13/2022 10:38 AM [employer] Other XR ankle LT min 3V* Dictation Location: [place] [address] [employer] Other XR ankle LT min 3V* Transcribed By: GENO 12/13/22 1038 [employer] Other XR ankle LT min 3V* Dictated By: Diana Rojas MD 12/13/22 1036 [employer] Other XR ankle LT min 3V* Signed By: [employer] Other XR ankle LT min 3V* 12/13/22 1038 [employer] Other XR ankle LT min 3V* [facility] [place] [address] [place] [address] XRay Report Signed Patient: Susi Ortiz MR#: [id number] : 1985 Acct:[id number] Age/Sex: 37 / F ADM Date: 12/13/22 Loc: XDUCLY Room: Type: [facility] Attending Dr: Linda South APRN Copies [...] Diana Rojas M.D.12/13/2022 10:38 AM Dictation Location: [place] [address] Transcribed By: [facility] 12/13/22 1038 Dictated By: Diana Rojas MD 12/13/22 1036 Signed By: 12/13/22 10[address] [facility] [address] HEAD WO CONon 08-19-2022 CT HEAD [...] Date: 2022-08-19 18:23 Normal [facility] VITAMIN B1 (THIAMINE)on 03-29 Vit. B1, Whole Blood 113.1 nmol/L Normal 66.5-200.0 [facility] Comment on above: Performed By: #### FETIBC, VITAD, B12FOL #### [facility] [address] [place] [address] [address] Gentry Harmon XR foot RT min 3V*on 022 XR foot RT min 3V* [facility] [place] [address] [place] [address] XRay Report Signed Patient: Susi Ortiz MR#: [id number] : 1985 Acct:[id number] Age/Sex: 36 / F ADM Date: 04/16/22 Loc: XDUCLY Room: Type: [facility] Attending Dr: Christa JONES Copies to: [...] Rosana Ventura M.D.04/16/2022 7:09 PM Dictation Location: [place] [address] Transcribed By: GENO 04/16/221908 Dictated By: Rosana Ventura II, MD 04/16/221903 Signed By: 04/16/221908 [facility] XR foot RT min 3V* [facility] [employer] Other XR foot RT min 3V* [facility] [employer] Other XR foot RT min 3V* [address] [place] [address] [employer] Other XR foot RT min 3V* [place] [address] [employer] Other XR foot RT min 3V* XRay Report [employer] Other XR foot RT min 3V* Signed [employer] Other XR foot RT min 3V* Patient: Susi Ortiz MR#: M [employer] Other XR foot RT min 3V* [id number] [employer] Other XR foot RT min 3V* : 1985 Acct:[id number] [employer] Other XR foot RT min 3V* Age/Sex: 36 / F ADM Date: 04/16/22 [employer] Other XR foot RT min 3V* Loc: XDUCLY Room: Type: [facility] [employer] Other XR foot RT min 3V* Attending Dr: Christa JONES [employer] Other XR foot RT min 3V* Copies to: ROBERT Feliciano [employer] Other XR foot RT min 3V* Ordering Provider: ROBERT Feliciano [employer] Other XR foot RT min 3V* Date of Service: 04/16/22 [employer] Other XR foot RT min 3V* XR/XR foot RT min 3V*: Right foot pain [facility] [employer] Other XR foot RT min 3V* XR foot RT min 3V* 04/16/2022 6:45 PM [facility] [employer] Other XR foot RT min 3V* SIGNS AND SYMPTOMS: Popping sensation in right foot [facility] [employer] Other XR foot RT min 3V* PROTOCOL: Frontal, lateral, and oblique radiographs of the right [facility] [employer] Other XR foot RT min 3V* COMPARISON: 11/04/2018 [facility] [employer] Other XR foot RT min 3V* FINDINGS: [employer] [facility] [employer] Other XR foot RT min 3V* The bones are in anatomic alignment. Degenerative changes without evidence of fracture or [facility] [employer] Other XR foot RT min 3V* dislocation. There is diffuse soft tissue swelling. There is plantar and Achilles surface calc [facility] [employer] Other XR foot RT min 3V* aneal spurring. Degenerative changes are noted in the talonavicular joint. [facility] [employer] Other XR foot RT min 3V* XR/XR foot RT min 3V* [facility] [employer] Other XR foot RT min 3V* IMPRESSION: [employer] Other XR foot RT min 3V* No fracture. [employer] [facility] [employer] Other XR foot RT min 3V* There is diffuse soft tissue swelling which is new. [employer] Other XR foot RT min 3V* Mild degenerative changes are noted at the talonavicular junction with spurring at the plantar and [employer] Other XR foot RT min 3V* Achilles surface of the calcaneus. [employer] Other XR foot RT min 3V* Impression dictated by: Rosana Ventura M.D.04/16/2022 7:09 PM [employer] Other XR foot RT min 3V* Dictation Location: [place] [address] [employer] Other XR foot RT min 3V* Transcribed By: PWS 04/16/221908 [employer] Other XR foot RT min 3V* Dictated By: Rosana Ventura II, MD 04/16/221903 [employer] Other XR foot RT min 3V* Signed By: [employer] Other XR foot RT min 3V* 04/16/221908 [employer] Other CBC AUTO DIFFon 04-11-2022 BASO # 0.1 103/ul Normal 0.0-0.1 [facility] Comment on above: Performed By: #### FETIBC, VITAD, B12FOL #### [facility] [address] [place] [address] Dr. Gentry Harmon Basophils/100 WBC (Bld) 0.5 % Normal 0.2-2.0 [facility] Comment on above: Performed By: #### FETIBC, VITAD, B12FOL #### [facility] [address] [place] [address] Dr. Gentry Harmon EO # 0.2 103/ul Normal 0.0-0.7 [facility] Comment on above: Performed By: #### FETIBC, VITAD, B12FOL #### [facility] [address] [place] [address] Dr. Gentry Harmon Eosinophils/100 WBC (Bld) 0.9 % Normal 0.9-7.0 [facility] Comment on above: Performed By: #### FETIBC, VITAD, B12FOL #### [facility] [address] [place] [address] Dr. Gentry Harmon Erythrocyte distribution width (RBC) [Ratio] 14.3 % Normal 11.0-15.0 [facility] Comment on above: Performed By: #### FETIBC, VITAD, B12FOL #### [facility] [address] [place] [address] Dr. Gentry Harmon Hematocrit (Bld) [Volume fraction] 41.9 % Normal 36.0-48.0 [facility] Comment on above: Performed By: #### FETIBC, VITAD, B12FOL #### [facility] [address] [place] [address] Dr. Gentry Harmon Hemoglobin (Bld) [Mass/Vol] 13.4 g/dL Normal 12.0-16.0 [facility] Comment on above: Performed By: #### FETIBC, VITAD, B12FOL #### [facility] [address] [place] [address] Dr. Gentry Harmon IG # 0.06 10e3/ul Critically high 0.00-0.03 [facility] Comment on above: Performed By: #### FETIBC, VITAD, B12FOL #### [facility] [address] [place] [address] [address] Gentry Harmon IG % 0.3 % Normal 0.0-0.5 [facility] Comment on above: Performed By: #### FETIBC, VITAD, B12FOL #### [facility] [address] [place] [address] Dr. Gentry Harmon LYMPH # 5.9 103/ul Critically high 1.2-3.8 [facility] Comment on above: Performed By: #### FETIBC, VITAD, B12FOL #### [facility] [address] [place] [address] Dr. Gentry Harmon Lymphocytes/100 WBC (Bld) 34.0 % Normal 20.5-60.0 [facility] Comment on above: Performed By: #### FETIBC, VITAD, B12FOL #### [facility] [address] [place] [address] Dr. Gentry Harmon MANUAL DIFF REQ NO Normal [facility] Comment on above: Performed By: #### FETIBC, VITAD, B12FOL #### [facility] [address] [place] [address] Dr. Gentry Harmon MCH (RBC) [Entitic mass] 28.9 pg Normal 26.7-34.0 [facility] Comment on above: Performed By: #### FETIBC, VITAD, B12FOL #### [facility] [address] [place] [address] Dr. Gentry Harmon MCHC (RBC) [Mass/Vol] 32.0 g/dL Normal 29.9-35.2 [facility] Comment on above: Performed By: #### FETIBC, VITAD, B12FOL #### [facility] [address] [place] [address] Dr. Gentry Hamron MCV (RBC) [Entitic vol] 90.3 fL Normal 81.0-99.0 [facility] Comment on above: Performed By: #### FETIBC, VITAD, B12FOL #### [facility] [address] [place] [address] Dr. Gentry Harmon MONO # 1.3 103/ul Critically high 0.3-0.8 [facility] Comment on above: Performed By: #### FETIBC, VITAD, B12FOL #### [facility] [address] [place] [address] Dr. Gentry Harmon Monocytes/100 WBC (Bld) 7.8 % Normal 1.7-12.0 [facility] Comment on above: Performed By: #### FETIBC, VITAD, B12FOL #### [facility] [address] [place] [address] Dr. Gentry Harmon NEUT # 9.8 103/ul Critically high 1.4-6.5 [facility] Comment on above: Performed By: #### FETIBC, VITAD, B12FOL #### [facility] [address] [place] [address] Dr. Gentry Harmon Neutrophils/100 WBC (Bld) 56.5 % Normal 43.0-75.0 [facility] Comment on above: Performed By: #### FETIBC, VITAD, B12FOL #### [facility] [address] [place] [address] [address] Gentry Harmon Platelet mean volume (Bld) [Entitic vol] 9.3 fL Critically low 9.5-13.5 [facility] Comment on above: Performed By: #### FETIBC, VITAD, B12FOL #### [facility] [address] [place] [address] [address] Gentry Harmon PLT 522 103/ul Critically high 150-450 [facility] Comment on above: Performed By: #### FETIBC, VITAD, B12FOL #### [facility] [address] [place] [address] Dr. Gentry Harmon RBC 4.64 106/ul Normal 4.20-5.40 [facility] Comment on above: Performed By: #### FETIBC, VITAD, B12FOL #### [facility] [address] [place] [address] Dr. Gentry Harmon WBC 17.3 103/ul Critically high 4.0-11.0 [facility] Comment on above: Performed By: #### FETIBC, VITAD, B12FOL #### [facility] [address] [place] [address] Dr. Gentry Harmon IRON AND TIBCon 04-11-2022 % SATURATION 15.7 % Normal [facility] Comment on above: Performed By: #### FETIBC, VITAD, B12FOL #### [facility] [address] [place] [address] Dr. Gentry Harmon Iron [Mass/Vol] 58.0 ug/dL Normal 50.0-170.0 [facility] Comment on above: Performed By: #### FETIBC, VITAD, B12FOL #### [facility] [address] [place] [address] Dr. Gentry Harmon TIBC DIRECT 369.0 ug/dL Normal 250.0-450. 0 [facility] Comment on above: Performed By: #### FETIBC, VITAD, B12FOL #### [facility] [address] [place] [address] [address] Gentry Harmon PREALBUMINon 04-11-2022 Prealbumin [Mass/Vol] 27.8 mg/dL Normal 20.9-45.5 [facility] Comment on above: Performed By: #### CMP, PREALB #### [facility] [address] [place] [address] [address] Gentry Harmon PROF 14(COMP METB)on 04-11- 022 Albumin [Mass/Vol] 3.3 g/dL Critically low 3.4-5.0 [facility] Comment on above: Performed By: #### CMP, PREALB #### [facility] [address] [place] [address] Dr. Gentry Harmon Albumin/Globulin [Mass ratio] 0.8 {ratio} Normal [facility] Comment on above: Performed By: #### CMP, PREALB #### [facility] [address] [place] [address] Dr. Gentry Harmon ALP [Catalytic activity/Vol] 89 U/L Normal 46-116 [facility] Comment on above: Performed By: #### CMP, PREALB #### [facility] [address] [place] [address] Dr. Gentry Harmon ALT [Catalytic activity/Vol] 16 U/L Normal 14-59 [facility] Comment on above: Performed By: #### CMP, PREALB #### [facility] [address] [place] [address] [address] Gentry Harmon Anion gap [Moles/Vol] 11.3 mmol/L Normal [facility] Comment on above: Performed By: #### CMP, PREALB #### [facility] [address] [place] [address] Dr. Gentry Harmon AST [Catalytic activity/Vol] 11 U/L Critically low 15-37 [facility] Comment on above: Performed By: #### CMP, PREALB #### [facility] [address] [place] [address] Dr. Gentry Harmon Bilirubin [Mass/Vol] 0.1 mg/dL Critically low 0.2-1.0 [facility] Comment on above: Performed By: #### CMP, PREALB #### [facility] [address] [place] [address] Dr. Gentry Harmon Calcium [Mass/Vol] 8.8 mg/dL Normal 8.5-10.1 [facility] Comment on above: Performed By: #### CMP, PREALB #### [facility] [address] [place] [address] Dr. Gentry Harmon Chloride [Moles/Vol] 103 mmol/L Normal 98-107 [facility] Comment on above: Performed By: #### CMP, PREALB #### [facility] [address] [place] [address] Dr. Gentry Harmon CO2 [Moles/Vol] 25.6 mmol/L Normal 21.0-32.0 [facility] Comment on above: Performed By: #### CMP, PREALB #### [facility] [address] [place] [address] Dr. Gentry Harmon Creatinine [Mass/Vol] 0.81 mg/dL Normal 0.55-1.02 [facility] Comment on above: Performed By: #### CMP, PREALB #### [facility] [address] [place] [address] Dr. Gentry Harmon EGFR-AF BELGIAN >60 Normal >=60 [facility] Comment on above: Performed By: #### CMP, PREALB #### [facility] [address] [place] [address] Dr. Gentry Harmon EGFR-NON AF BELGIAN >60 Normal >=60 [facility] Comment on above: Performed By: #### CMP, PREALB #### [facility] [address] [place] [address] Dr. Gentry Harmon Globulin (S) [Mass/Vol] 4.4 g/dL Normal [facility] Comment on above: Performed By: #### CMP, PREALB #### [facility] [address] [place] [address] Dr. Gentry Harmon Glucose [Mass/Vol] 101 mg/dL Normal 74-106 [facility] Comment on above: Performed By: #### CMP, PREALB #### [facility] [address] [place] [address] Dr. Gentry Harmon Potassium [Moles/Vol] 3.9 mmol/L Normal 3.5-5.1 [facility] Comment on above: Performed By: #### CMP, PREALB #### [facility] [address] [place] [address] Dr. Gentry Harmon Protein [Mass/Vol] 7.7 g/dL Normal 6.4-8.2 [facility] Comment on above: Performed By: #### CMP, PREALB #### [facility] [address] [place] [address] Dr. Gentry Harmon Sodium [Moles/Vol] 136 mmol/L Normal 136-145 [facility] Comment on above: Performed By: #### CMP, PREALB #### [facility] [address] [place] [address] Dr. Gentry Harmon Urea nitrogen [Mass/Vol] 10.0 mg/dL Normal 7.0-18.0 [facility] Comment on above: Performed By: #### CMP, PREALB #### [facility] [address] [place] [address] Dr. Gentry Harmon Urea nitrogen/Creatin ine [Mass ratio] 12.3 mg/mg Normal [facility] Comment on above: Performed By: #### CMP, PREALB #### [facility] [address] [place] [address] Dr. Gentry Harmon VIT B12 AND FOLATEon 022 Cobalamin (Vitamin B12) [Mass/Vol] 226.0 pg/mL Normal 193.0-986. 0 [facility] Comment on above: Performed By: #### FETIBC, VITAD, B12FOL #### [facility] [address] [place] [address] Dr. Gentry Harmon FOLATE 3.20 ng/mL Critically low 8.60-58.90 [facility] Comment on above: Performed By: #### FETIBC, VITAD, B12FOL #### [facility] [address] [address] [address] Gentry Harmon VITAMIN D 25 OHon 04-11-2022 VIT D 25-OH 23.6 ng/mL Normal [facility] Comment on above: Performed By: #### FETIBC, VITAD, B12FOL #### [facility] [address] [address] [address] Gentry Harmon VIT D RANGES SEE BELOW Normal [facility] Comment on above: Result Comment: <20 ng/mL Vit D deficien t 20 - <30 ng/mL Vit D insufficient 30 - 100 ng/mL Vit D sufficient >100 ng/mL Potential Toxicity Performed By: #### F ETIBC, VITAD, B12FOL #### [facility] [address] [address] [address] Gentry Harmon XR LSPINE 2_3 VIEWSon [...] ESTELLA ALVES Date: 2022-04-01 19:22 Normal [facility] CT ABD/PEL W IVCONon 022 CT ABD/PEL W IVCON * * *Final Report* * * DATE OF EXAM: Feb 12 2022 2:57PM [facility] 0530 - CT ABD/PEL W IVCON [...] lesions. Lower thorax: Lower lungs are clear. Teacher Tutor (topogram) images: Unremarkable. IMPRESSION: No acute process in the abdomen or pelvis. Lozenge Maker Helper: DENISE Transcribe Date/Time: Feb 12 2022 3:04P Dictated by : MARIELA GRECO MD This examination was interpreted and the report reviewed and electronically signed by: MARIELA GRECO MD on Feb 12 2022 3:19PM EST [id number] Normal [facility] NURSING PROGon 02-12-2022 NURSING PROG HNO ID: [id number] Author: Elizabeth Stephens RN Service: Radiology Author [...] DATE: February 12, 2022 TIME: 2:30 PM [facility] ANES POSTPROC EVALon 022 ANES POSTPROC EVAL HNO ID: [id number] Author: Carolina Pink MD Service: Anesthesiology Author [...] Granda MD; Carolina Pink MD; Sami Murcia APRN.SHEEP FARM MANAGER Responsible Provider: Carolina Pink MD Anesthesia Type: [...] December 18, 2021 TIME: 3:11 PM CSN: [id number] Normal [facility] ANES PRE-OPon 12-18-2021 ANES PRE-OP HNO ID: [id number] Author: Carolina Pink MD Service: Anesthesiology Author Type: Physician Type: Anesthesia Preprocedure Evaluation Filed: 12/18/2021 11:23 AM Note Text: ANESTHESIOLOGY DAY OF SURGERY NOTE : 1985 Procedure Information Date/Time: 12/18/21 1115 Scheduled providers: Joe Granda MD; Carolina Pink MD; Sami Murcia APRN.SHEEP FARM MANAGER Procedure: EGD DIAGNOSTIC Location: Procedures Estimated body [...] December 18, 2021 TIME: 11:22 AM CSN: [id number] Normal [facility] EGD DIAGNOSTICon 12-18-2021 [facility] Upper GI endoscopyon 022 Upper GI endoscopy [facility] Gastrointestinal Endoscopy Patient Name: Susi Ortiz Procedure [...] by the physician, the nurse and the hl7 interface developer in the pre-procedure area in the endoscopy [...] previously scheduled. Procedure Code(s): --- Professional --- 49865, Esophagogastroduodenoscopy, flexible, transoral; diagnostic, including collection of specimen(s) by brushing or washing, when performed (separate procedure) Diagnosis Code(s): --- Professional --- Z98.84, Bariatric surgery status R10.13, Epigastric pain R12, Heartburn K95.89, Other complications of other bariatric procedure CPT copyright 2019 [employer]. All rights reserved. The codes documented in this report are preliminary and upon certified professional coder review may be revised to meet current compliance requirements. Attending Participation: I personally performed the entire procedure. Scope In: 12:23:05 PM Scope Out: 12:26:48 PM MD Joe Gomez MD 12/18/2021 12:32:03 PM This report has been signed electronically by Joe Granda MD Number of Addenda: 0 Note Initiated On: 12/18/2021 12:11 PM Estimated Blood Loss: Estimated blood loss: none. Normal [facility] HISTORY PHYSICALon HISTORY PHYSICAL HNO ID: [id number] Author: Melissa Olivas PA-C Service: ? Author Type: Physician Breaker Oiler Type: HANDP Filed: 12/10/2021 1:13 PM Note Text: HISTORY AND PHYSICAL EXAMINATION SERVICE DATE: 12/05/2021 SERVICE TIME: 1:12 PM PRIMARY CARE PHYSICIAN: Rosaura Estrada, BRAND DESIGNER, BRAND DESIGNER This is a virtual visit using alternative [...] Negative for: dysuria, frequent urination and hematuria. TORPEDO SPECIALIST: +amenorrhea with IUD Endocrine: Negative for: [...] twice daily. Britt (more content not included)... Normal [facility] XR foot LT min 3V*on 022 XR foot LT min 3V* [facility] [employer] Other XR foot LT min 3V* [facility] Main Replaced By [facility] [employer] Other XR foot LT min 3V* 1111 [facility] [employer] Other XR foot LT min 3V* [place] [address] [facility] [employer] Other XR foot LT min 3V* XRay Report [employer] Other XR foot LT min 3V* Signed [employer] Other XR foot LT min 3V* Patient: Susi Ortiz MR#: M [employer] Other XR foot LT min 3V* [id number] [employer] Other XR foot LT min 3V* : 1985 Acct:[id number] [employer] Other XR foot LT min 3V* Age/Sex: 36 / F ADM Date: 11/13/21 [employer] Other XR foot LT min 3V* Loc: XDUCLY Room: Type: [facility] [employer] Other XR foot LT min 3V* Attending Dr: Christa JONES [employer] Other XR foot LT min 3V* Ordering Provider: ROBERT Feliciano [employer] Other XR foot LT min 3V* Date of Service: 11/13/21 [employer] Other XR foot LT min 3V* XR/XR foot LT min 3V*: Left foot pain [employer] Other XR foot LT min 3V* Copies to: ROBERT Feliciano [employer] Other XR foot LT min 3V* Left foot 11/13/2021. [employer] Other XR foot LT min 3V* CLINICAL DATA: Left foot pain. N [facility] Other XR foot LT min 3V* FINDINGS: 3 views of the left foot were obtained and are compared with a prior study 03/21/2019. [employer] Other XR foot LT min 3V* No acute fracture or dislocation is identified. There is calcaneal spurring. No other bony [employer] Other XR foot LT min 3V* abnormality is seen. No localized soft tissue swelling is noted. [employer] Other XR foot LT min 3V* XR/XR foot LT min 3V* [employer] Other XR foot LT min 3V* IMPRESSION: Calcaneal spurring. No acute bony abnormality. [employer] Other XR foot LT min 3V* Impression dictated by: Pawan Gallardo Jr., M.D.11/13/2021 11:30 AM [employer] Other XR foot LT min 3V* Dictation Location: [place] [address] [employer] Other XR foot LT min 3V* Transcribed By: GENO 11/13/21 1130 [employer] Other XR foot LT min 3V* Dictated By: Pawan Gallardo Jr, MD 11/13/21 1127 [employer] Other XR foot LT min 3V* Signed By: [employer] Other XR foot LT min 3V* 11/13/21 1130 [employer] Other CERTIFIED MEDICAL CODER - Office Visiton 04-0 CERTIFIED MEDICAL CODER - Office Visit Diagnoses/Problems Assessed Adnexal mass (625.8) (N94.89) Pelvic pain (R10.2) Orders Alpha Fetoprotein, Serum; Status:Active; Requested for:[id number]; Cancer Antigen, 125; Status:Active; Requested for:05Tcd9151; Cancer Antigen, GI Ca 19-9; Status:Active; Requested for:44Oyy0801; Carcinoembryonic Antigen; Status:Active; Requested for:67Uxr1786; HCG, Beta Quantitative; Status:Active; Requested for:98Yfd2225; LDH; Status:Active; Requested for:30Sep2021; IO Ultrasound, pelvic [...] options and next steps. Plan: [x ] TORPEDO SPECIALIST ultrasound, patient is to contact our office to schedule [x ] we will check tumor markers [x ] our office staff will reach out to the patient to sign medical record release forms for her operative procedures performed at [facility] [x ] patient is to follow-up with me once this work-up is complete A copy of this note was sent electronically to Dr. Cherri Horvath MD [facility] [phone] [place] [phone] [place] Provider Impressions Susi is a 36-year-old female [...] options and next steps. Plan: [x ] TORPEDO SPECIALIST ultrasound, patient is to contact our office to schedule [x ] we will check tumor markers [x ] our office staff will reach out to the patient to sign medical record release forms for her operative procedures performed at [facility] [x ] patient is to follow-up with me once this work-up is complete A copy of this note was sent electronically to Dr. Cherri Horvath MD [facility] [phone] [place] [phone] [place] Appointment Duration:. 45 minutes; greater than half [...] Cyst on Right Ovary. History of Present [id number]/30/2021 9:15AM SUSI ORTIZ , 36 year is contacted for an (audio-visual, or audio only) Telehealth visit. Today's visit was provided through telemedicine conferencing: Using [employer] platform. Consent: The concept of telemedicine? has [...] She went in for evaluation with her CERTIFIED MEDICAL CODER in early January 2021, and was subsequently found to have a complex ovarian cyst. She was taken (more content not included)... Normal e[place]en Tobacco Screening.on 022 Fall risk assessment a) No falls within the last year KU-CTBSV-Ioxb ker 206A IVF Work Phone: Last menstrual period start date MIRENA FJ-MEHLJ-Olee ker 206A IVF Work Phone: Tobacco use status [facility] b) No OT-HGWER-Ymwc ker 206A IVF Work Phone: POCT urine pregnancyon 04-06 Beta HCG ( test) Ql (U) Negative NEGATIVE [facility] [place] Comment on above: Specimens with hCG levels near the thres hold of the test (25 mIU/mL) may give a negative or indeterminate result. In such cases, another test should be performed with a new specimen in 48-72 hours. If early is suspected clinically in this setting, correlation with quantitative serum b-hCG level is suggested. TESTING PERFORMED AT [place] [id number] Surgical Pathologyon 020 Surgical Pathology (NOTE) -- Diagnosis -- STOMACH, BIOPSIES: - MILD CHRONIC INACTIVE GASTRITIS. - NEGATIVE FOR ACTIVE GASTRITIS, INTESTINAL METAPLASIA OR DYSPLASIA. Ignacio Harris M.D. Electronically Signed Out jet/04/10/2020 Clinical Information Pre-op Diagnosis: OBESITY Operative Findings: STOMACH BIOPSY TO RULE OUT H. PYLORI STAIN Operation Performed: EGD BIOPSY Source of Specimen 1: STOMACH BIOPSY TO RULE OUT H. PYLORI (A) Gross Description SUSI JEANENSHIP, STOMACH BIOPSY TO RULE OUT H. PYLORI STAIN Carefree-johnson tissue fragments, each 0.2 x 0.2 x [...] SURGICAL PATHOLOGY CONSULTATION Patient Name: SUSI ORTIZ [facility] Rec: [id number] Path Number: [id number] [facility] ANATOMIC PATHOLOGY [address] [place] [id number] Normal [facility] Comment on above: Performed By: #### PPPVS #### [employer] [address] [place] [address] Diagrammer And Seamer: Tito Balderrama MD [id number] 04-04-2020 SARS-CoV-2 Not Detected Normal Not Detected [facility] Comment on above: Result Comment: (NOTE) This nucleic acid amplification test was developed and its performance characteristics determined by [employer]. Nucleic acid amplification tests include PCR and [...] detected) result in this assay. Performed At: [facility] [address] [facility] [place] [id number] You Naqvi MD Ph:[phone] Performed By: #### A COV #### [facility] [address] [place] [address] Diagrammer And Seamer: Olivier Espinosa MD Covid-19 Ambulatoryon 2019 SARS-CoV-2, AHS Not Detected Not Detected [place], [place] Comment on above: (NOTE) This nucleic acid amplification test was developed and its performance characteristics determined by [employer]. Nucleic acid amplification tests include PCR and [...] detected) result in this assay. Performed At: [facility] [address] [facility] [place] [id number] You Naqvi MD Ph:[phone] Drug Scr,Pain Mgmt Uon 01-09 7-Aminoclonazep, Ur Not Detected Normal [facility] Comment on above: Performed By: #### ADAUPM ####[address] [place] [address] Acetaminophen mass conc Not Detected Normal [facility] Comment on above: Performed By: #### ADAUPM ####[address] [place] [address] Xoxkv-PA-Bvnqwn, Ur Not Detected Normal [facility] Comment on above: Performed By: #### ADAUPM ####[address] [place] [address] Alprazolam, Ur Not Detected Normal [facility] Comment on above: Performed By: #### ADAUPM ####[address] [place] [address] Amphetamine, Ur Not Detected Normal [facility] Comment on above: Performed By: #### ADAUPM ####[address] [place] [address] Barbiturates, Ur Not Detected Normal [facility] Comment on above: Performed By: #### ADAUPM ####[facility] [facility] [place] [address] Benzoylecgonine, Ur Not Detected Normal [facility] Comment on above: Performed By: #### ADAUPM ####[address] [address] Buprenorphine, Ur Not Detected Normal [facility] Comment on above: Performed By: #### ADAUPM ####[address] [address] Carisoprodol, Ur Not Detected Normal [facility] Comment on above: Result Comment: (NOTE)The carisoprodol i mmunoassay has cross-reactivity to carisoprodoland meprobamate. Performed By: #### A DAUPM ####[address] [address] Clonazepam, Ur Not Detected Normal [facility] Comment on above: Performed By: #### ADAUPM ####[address] [address] Codeine, Ur Not Detected Normal [facility] Comment on above: Performed By: #### ADAUPM ####[address] [address] Creatinine 52.1 mg/dL Normal 20.0-400.0 [facility] Comment on above: Performed By: #### ADAUPM ####[address] [address] Diazepam, Ur Not Detected Normal [facility] Comment on above: Performed By: #### ADAUPM ####[address] [address] EER Hi Res Interp Ur See Note Normal [facility] Comment on above: Result Comment: (NOTE)Access [facility] ed Report using either link below:-Direct access: [email or web address] Username, Password: [email or web address]: [email or web address]: [email or web address] by [employer],[facility] [place] [address] yrt.[employer], Ari Lowe MD, Lab. DirectorPerformed at [facility] [address] [place] [address] Performed By: #### A DAUPM ####[address] [address] Fentanyl, Ur Not Detected Normal [facility] Comment on above: Performed By: #### ADAUPM ####[address] [address] Glucose mass conc Not Detected Normal [facility] Comment on above: Performed By: #### ADAUPM ####[address] [address] Hydrocodone, Ur Not Detected Normal [facility] Comment on above: Performed By: #### ADAUPM ####[address] [address] Hydromorphone, Ur Not Detected Normal [facility] Comment on above: Performed By: #### ADAUPM ####[address] [address] Lorazepam, Ur Not Detected Normal [facility] Comment on above: Performed By: #### ADAUPM ####[address] [address] Marijuana Metab, Ur Not Detected Normal [facility] Comment on above: Performed By: #### ADAUPM ####[facility] [facility] [place] [address] MDA, Ur Not Detected Normal [facility] Comment on above: Performed By: #### ADAUPM ####[facility] [place] [address] MDEA, Nikki, Ur Not Detected Normal [facility] Comment on above: Performed By: #### ADAUPM ####[facility] [place] [address] MDMA, Ecstasy, Ur Not Detected Normal [facility] Comment on above: Performed By: #### ADAUPM ####[facility] [place] [address] Meperidine metab, Ur Not Detected Normal [facility] Comment on above: Performed By: #### ADAUPM ####[facility] [place] [address] Methadone, Ur Not Detected Normal [facility] Comment on above: Performed By: #### ADAUPM ####[facility] [place] [address] Methamphetamine, Ur Not Detected Normal [facility] Comment on above: Performed By: #### ADAUPM ####[facility] [place] [address] Methylphenidate Not Detected Normal [facility] Comment on above: Performed By: #### ADAUPM ####[address] [address] Midazolam, Ur Not Detected Normal [facility] Comment on above: Performed By: #### ADAUPM ####[facility] [place] [address] Morphine, Ur Not Detected Normal [facility] Comment on above: Performed By: #### ADAUPM ####[facility] [place] [address] Norbuprenorphine , Ur Not Detected Normal [facility] Comment on above: Performed By: #### ADAUPM ####[facility] [place] [address], [place] [address] Nordiazepam, Ur Not Detected Normal [facility] Comment on above: Performed By: #### ADAUPM ####[facility] [place] [address], [place] [address] Norfentanyl, Ur Not Detected Normal [facility] Comment on above: Performed By: #### ADAUPM ####[facility] [place] [address], [place] [address] Norhydrocodone, Ur Not Detected Normal [facility] Comment on above: Performed By: #### ADAUPM ####[facility] [place] [address], [place] [address] Noroxycodone, Ur Not Detected Normal [facility] Comment on above: Performed By: #### ADAUPM ####[facility] [place] [address], [place] [address] Noroxymorphone, Ur Not Detected Normal [facility] Comment on above: Performed By: #### ADAUPM ####[facility] [place] [address], [place] [address] Oxazepam, Ur Not Detected Normal [facility] Comment on above: Performed By: #### ADAUPM ####[facility] [place] [address], [place] [address] Oxycodone, Ur Not Detected Normal [facility] Comment on above: Performed By: #### ADAUPM ####[facility] [facility] [place] [address] Oxymorphone, Ur Not Detected Normal [facility] Comment on above: Performed By: #### ADAUPM ####[facility] [facility] [place] [address] Pain Mgt [address]g Handley, Ur See Below Normal [facility] Comment on above: Result Comment: (NOTE)Methodology: [...] was developed and its performance characteristicsdetermined by [employer]. The U.S. Food and DrugAdministration has not approved or cleared this test; however, FDAclearance or approval is not currently required for clinical use.The results are not intended to be used as the sole means forclinical diagnosis or patient management decisions. Performed By: #### A DAUPM ####[facility] [facility] [place] [address] PCP, Ur Not Detected Normal [facility] Comment on above: Performed By: #### ADAUPM ####[facility] [place] [address] Phentermine, Ur Not Detected Normal [facility] Comment on above: Performed By: #### ADAUPM ####[facility] [facility] [place] [address] Pn Mg Drg Handley Int Ur Consistent Normal [facility] Comment on above: Result Comment: (NOTE) _DRUGS EXPECTED:NO DRUGS EXPECTED ___CONSISTENT with medications provided:NO DRUGS DETECTED ___INTERPRETIVE INFORMATION:Pain Mgt Handley, High Res/EMIT, Ur, InterpInterpretation depends on accuracy and completeness of patientmedication information submitted by client. Performed By: #### A DAUPM ####[facility] [place] [address] Propoxyphene, Ur Not Detected Normal [facility] Comment on above: Performed By: #### ADAUPM ####[facility] [place] [address] Tapentadol o Sul, Ur Not Detected Normal [facility] Comment on above: Performed By: #### ADAUPM ####[facility] [place] [address] Tapentadol, Ur Not Detected Normal [facility] Comment on above: Performed By: #### ADAUPM ####[address] [address] Temazepam, Ur Not Detected Normal [facility] Comment on above: Performed By: #### ADAUPM ####[address] [address] Tramadol, Ur Not Detected Normal [facility] Comment on above: Performed By: #### ADAUPM ####[address] [address] Zolpidem, Ur Not Detected Normal [facility] Comment on above: Performed By: #### ADAUPM ####[address] [address] Drug Scr,Pain Mgmt Uon 01-06 Drugs Expected, Ur NONE Normal [facility] Comment on above: Performed By: #### ADAUPM ####[address] [address] Vital Signs Date Time Vital Sign Value Performing Clinician Facility 05-05-2024 10:53-0500 Body height 162.[address] Work Phone: [facility] 05-05-2024 10:53-0500 Body mass index (BMI) [Ratio] 63.17 kg/m2 Karon Monsivais RD Work Phone: [facility] 05-05-2024 10:53-0500 Body weight 166.[address] Work Phone: [facility] Comment on above: verbal, per patient 04-27-2024 11:49-0400 Body mass index (BMI) [Ratio] 63.48 kg/m2 Bushra Nevarez NP Work Phone: [facility] 04-27-2024 11:49-0400 Body weight 167.74 kg Bushra Nevarez NP Work Phone: [facility] 04-19-2024 11:15-0400 Body mass index (BMI) [Ratio] 63.2 kg/m2 Amina Nieto MD Work Phone: [facility] 04-19-2024 11:15-0400 Body weight 167.01 kg Amina Nieto MD Work Phone: [facility] 03-07-2024 15:02-0400 Body height 162.6 cm Jamie Cherri DO Work Phone: [facility] 03-07-2024 15:02-0400 Body mass index (BMI) [Ratio] 69.83 kg/m2 Jamie Cherri DO Work Phone: [facility] 03-07-2024 15:02-0400 Body weight 184.52 kg Jamie Cherri DO Work Phone: [facility] 03-07-2024 15:02-0400 Diastolic blood pressure 70 mm[Hg] Jamie Cherri DO Work Phone: [facility] 03-07-2024 15:02-0400 Systolic blood pressure 120 mm[Hg] Jamie Cherri DO Work Phone: [facility] 11-03-2023 10:45-0400 Body mass index (BMI) [Ratio] 63.34 kg/m2 Amina Nieto MD Work Phone: [facility] 11-03-2023 10:45-0400 Body weight 167.38 kg Amina Nieto MD Work Phone: [facility] 11-02-2023 12:53-0400 Body mass index (BMI) [Ratio] 63.34 kg/m2 Jayshree Huffman CLINICAL NEUROPSYCHOLOGIST.BRAND DESIGNER Work Phone: [facility] 11-02-2023 12:53-0400 Body weight 167.38 kg Jayshree Huffman CLINICAL NEUROPSYCHOLOGIST.BRAND DESIGNER Work Phone: [facility] 11-02-2023 10:22-0400 Body height 162.[address] Work Phone: [facility] 11-02-2023 10:22-0400 Body mass index (BMI) [Ratio] 63.48 kg/m2 Mary Sayra RD Work Phone: [facility] 11-02-2023 10:22-0400 Body weight 167.[address] Work Phone: [facility] Comment on above: verbal 09-07-2023 09:30-0400 Body height 162.6 cm Jayshree Huffman CLINICAL NEUROPSYCHOLOGIST.BRAND DESIGNER Work Phone: [facility] 09-07-2023 09:30-0400 Body temperature 98.01 [degF] Jayshree Huffman CLINICAL NEUROPSYCHOLOGIST.BRAND DESIGNER Work Phone: [facility] 09-07-2023 09:30-0400 Body weight 169.87 kg Jayshree Huffman CLINICAL NEUROPSYCHOLOGIST.BRAND DESIGNER Work Phone: [facility] 09-07-2023 09:30-0400 Diastolic blood pressure 81 mm[Hg] Jayshree Huffman CLINICAL NEUROPSYCHOLOGIST.BRAND DESIGNER Work Phone: [facility] 09-07-2023 09:30-0400 Heart rate 80 /min Jayshree Huffman CLINICAL NEUROPSYCHOLOGIST.BRAND DESIGNER Work Phone: [facility] 09-07-2023 09:30-0400 Systolic blood pressure 107 mm[Hg] Jayshree Huffman CLINICAL NEUROPSYCHOLOGIST.BRAND DESIGNER Work Phone: [facility] 08-31-2023 12:07-0500 Body height 162.[address] Work Phone: [facility] 08-31-2023 12:07-0500 Body weight 164.[address] Work Phone: [facility] 08-19-2023 12:14-0500 Body height 162.[address] Work Phone: [facility] 08-19-2023 12:14-0500 Body weight 167.[address] Work Phone: [facility] 08-17-2023 09:52-0500 Body height 162.6 cm Jayshree Huffman CLINICAL NEUROPSYCHOLOGIST.BRAND DESIGNER Work Phone: [facility] 08-17-2023 09:52-0500 Body temperature 97.3 [degF] Jayshree Huffman CLINICAL NEUROPSYCHOLOGIST.BRAND DESIGNER Work Phone: [facility] 08-17-2023 09:52-0500 Body weight 167.8 kg Jayshree Huffman CLINICAL NEUROPSYCHOLOGIST.BRAND DESIGNER Work Phone: [facility] 08-17-2023 09:52-0500 Diastolic blood pressure 75 mm[Hg] Jayshree Huffman CLINICAL NEUROPSYCHOLOGIST.BRAND DESIGNER Work Phone: [facility] 08-17-2023 09:52-0500 Heart rate 75 /min Jayshree Huffman CLINICAL NEUROPSYCHOLOGIST.BRAND DESIGNER Work Phone: [facility] 08-17-2023 09:52-0500 SaO2% (BldA) [Mass fraction] 97 % Jayshree Huffman CLINICAL NEUROPSYCHOLOGIST.BRAND DESIGNER Work Phone: [facility] 08-17-2023 09:52-0500 Systolic blood pressure 117 mm[Hg] Jayshree Huffman CLINICAL NEUROPSYCHOLOGIST.BRAND DESIGNER Work Phone: [facility] 03-10-2023 13:33-0400 Body height 162.6 cm Pacc 2 Work Phone: [facility] 03-10-2023 13:33-0400 Body temperature 97 [degF] Pacc 2 Work Phone: [facility] 03-10-2023 13:33-0400 Body weight 181.44 kg Pacc 2 Work Phone: [facility] [facility] 03-10-2023 13:33-0400 Diastolic blood pressure 66 mm[Hg] Pacc 2 Work Phone: [facility] 03-10-2023 13:33-0400 Heart rate 73 /min Pacc 2 Work Phone: [facility] 03-10-2023 13:33-0400 Respiratory rate 16 /min Pacc 2 Work Phone: [facility] 03-10-2023 13:33-0400 SaO2% (BldA) [Mass fraction] 97 % Pacc 2 Work Phone: [facility] 03-10-2023 13:33-0400 Systolic blood pressure 138 mm[Hg] Pacc 2 Work Phone: [facility] 03-05-2023 12:54-0400 Body height [address] Work Phone: [facility] 12-15-2022 15:09-0400 Body height [address] Work Phone: [facility] 12-15-2022 15:09-0400 Body weight 174.[address] Work Phone: [facility] 12-13-2022 09:30-0400 Body height 162.56 cm Linda South Other [employer] Other 12-13-2022 09:30-0400 Body mass index (BMI) [Ratio] 66.08 kg/m2 Linda South Other [employer] Other 12-13-2022 09:30-0400 Body temperature 98.2 [degF] Linda South Other [employer] Other 12-13-2022 09:30-0400 Body weight 174.64 kg Linda South Other [employer] Other 12-13-2022 09:30-0400 Respiratory rate 18 /min Linda South Other [employer] Other 12-13-2022 09:30-0400 SaO2% (BldA) [Mass fraction] 96 % Linda South Other [employer] Other 06-04-2022 11:04-0500 Body weight 185.07 kg Amina Nieto MD Work Phone: [facility] 04-16-2022 19:25-0400 Body height 162.56 cm Christa Tyler Other [employer] Other 04-16-2022 19:25-0400 Body mass index (BMI) [Ratio] 60.07 kg/m2 Christa Tyler Other [employer] Other 04-16-2022 19:25-0400 Body temperature 98.6 [degF] Christa Tyler Other [employer] Other 04-16-2022 19:25-0400 Body weight 158.76 kg Christa Tyler Other [employer] Other 04-16-2022 19:25-0400 Respiratory rate 18 /min Christa Tyler Other [employer] Other 04-16-2022 19:25-0400 SaO2% (BldA) [Mass fraction] 97 % Christa Tyler Other [employer] Other 01-17-2022 09:12-0400 Body height [address] Work Phone: [facility] 01-17-2022 09:12-0400 Body weight 179.[address] Work Phone: [facility] 12-18-2021 12:45-0400 Diastolic blood pressure 103 mm[Hg] Joe Granda MD Work Phone: [facility] 12-18-2021 12:45-0400 SaO2% (BldA) [Mass fraction] 100 % Joe Granad MD Work Phone: [facility] 12-18-2021 12:45-0400 Systolic blood pressure 123 mm[Hg] Joe Granda MD Work Phone: [facility] 12-18-2021 12:34-0400 Body temperature 96.91 [degF] Joe Granda MD Work Phone: [facility] 12-18-2021 12:34-0400 Heart rate 106 /min Joe Granda MD Work Phone: [facility] 12-18-2021 12:34-0400 Respiratory rate 20 /min Joe Granda MD Work Phone: [facility] 11-13-2021 11:30-0400 Body height 162.56 cm Christa Aguilarmond Other [employer] Other 11-13-2021 11:30-0400 Body mass index (BMI) [Ratio] 68.65 kg/m2 Christa Aguilarmond Other [employer] Other 11-13-2021 11:30-0400 Body temperature 98.3 [degF] Christa Aguilarmond Other [employer] Other 11-13-2021 11:30-0400 Body weight 181.44 kg Christa Aguilarmond Other [employer] Other 11-13-2021 11:30-0400 Diastolic blood pressure 77 mm[Hg] Christa Nayeli Other [employer] Other 11-13-2021 11:30-0400 Respiratory rate 18 /min Christa Aguilarmond Other [employer] Other 11-13-2021 11:30-0400 SaO2% (BldA) [Mass fraction] 100 % Christa Tyler Other [employer] Other 11-13-2021 11:30-0400 Systolic blood pressure 125 mm[Hg] Christa Tyler Other [employer] Other 11-04-2021 12:44-0400 Body height [address] Work Phone: [facility] 11-04-2021 12:44-0400 Body weight 184.[address] Work Phone: [facility] 11-04-2021 11:13-0400 Body height 160 cm Joe Granda MD Work Phone: [facility] 11-04-2021 11:13-0400 Body weight 184.61 kg Joe Granda MD Work Phone: [facility] 11-04-2021 11:13-0400 Diastolic blood pressure 74 mm[Hg] Joe Granda MD Work Phone: [facility] 11-04-2021 11:13-0400 Heart rate 86 /min Joe Granda MD Work Phone: [facility] 11-04-2021 11:13-0400 Systolic blood pressure 133 mm[Hg] Joe Granda MD Work Phone: [facility] 10-11-2021 14:45-0400 Body height 162.56 cm Bambi Gonzalez Other [employer] Other 10-11-2021 14:45-0400 Body mass index (BMI) [Ratio] 64.36 kg/m2 Bambi Gonzalez Other [employer] Other 10-11-2021 14:45-0400 Body temperature 97.3 [degF] Bambi Gonzalez Other [employer] Other 10-11-2021 14:45-0400 Body weight 170.1 kg Bambi Gonzalez Other [employer] Other 10-11-2021 14:45-0400 Respiratory rate 26 /min Bambi Gonzalez Other [employer] Other 10-11-2021 14:45-0400 SaO2% (BldA) [Mass fraction] 94 % Bambi Gonzalez Other [employer] Other 10-03-2021 13:25-0400 Body height 162.56 cm Mary Blakely Other [employer] Other 10-03-2021 13:25-0400 Body mass index (BMI) [Ratio] 68.82 kg/m2 Mary Blakely Other [employer] Other 10-03-2021 13:25-0400 Body temperature 97.5 [degF] Mary Blakely Other [employer] Other 10-03-2021 13:25-0400 Body weight 181.89 kg Mary Blakely Other [employer] Other 10-03-2021 13:25-0400 Diastolic blood pressure 57 mm[Hg] Mary Blakely Other [employer] Other 10-03-2021 13:25-0400 Respiratory rate 18 /min Mary Blakely Other [employer] Other 10-03-2021 13:25-0400 SaO2% (BldA) [Mass fraction] 99 % Mary Blakely Other [employer] Other 10-03-2021 13:25-0400 Systolic blood pressure 118 mm[Hg] Mary Blakely Other [employer] Other 09-30-2021 09:03-0400 Body height 162.56 cm Prince Lyles Yuliet Work Phone: [id number] 206A IV[facility] Work Phone: 09-30-2021 09:03-0400 Body mass index (BMI) [Ratio] 60.08 kg/m2 Prince Lyles Yuliet Work Phone: [id number] 206A IV[facility] Work Phone: 09-30-2021 09:03-0400 Body surface area Derived from formula 2.48 m2 Prince Trupti Horvath Work Phone: [id number] 206A IVF Work Phone: 09-30-2021 09:03-0400 Body weight 158.76 kg Prince Lyles Yuliet Work Phone: [id number] 206A IVF Work Phone: 09-30-2021 09:03-0400 2 1 Prince Horvath Work Phone: [id number] 206A IVF Work Phone: Comment on above: GRAV PARA 09-30-2021 09:03-0400 0 1 Prince Horvath Work Phone: [id number] 206A IVF Work Phone: Comment on above: [employer] 09-23-2021 11:00-0400 Body height 160 cm Jayshree Huffman CLINICAL NEUROPSYCHOLOGIST.BRAND DESIGNER Work Phone: [facility] 09-23-2021 11:00-0400 Body weight 165.56 kg Jayshree Huffman CLINICAL NEUROPSYCHOLOGIST.BRAND DESIGNER Work Phone: [facility] 05-17-2021 11:18-0500 Body height 160 cm Humza Walter MD Work Phone: [facility] 05-17-2021 11:18-0500 Body mass index (BMI) [Ratio] 68.09 kg/m2 Humza Walter MD Work Phone: [facility] 05-17-2021 11:18-0500 Body temperature 96.3 [degF] Humza Walter MD Work Phone: [facility] 05-17-2021 11:18-0500 Body weight 174.36 kg Humza Walter MD Work Phone: [facility] 05-17-2021 11:18-0500 Diastolic blood pressure 77 mm[Hg] Humza Walter MD Work Phone: [facility] 05-17-2021 11:18-0500 Heart rate 75 /min Humza Walter MD Work Phone: [facility] 05-17-2021 11:18-0500 SaO2% (BldA) [Mass fraction] 95 % Humza Walter MD Work Phone: [facility] 05-17-2021 11:18-0500 Systolic blood pressure 133 mm[Hg] Humza Walter MD Work Phone: [facility] 04-06-2020 09:25-0400 BP Diastolic 77 mm[Hg] [facility] [place] [place] 04-06-2020 09:25-0400 BP Systolic 129 mm[Hg] [facility] [place] 04-06-2020 09:25-0400 Pulse (Heart Rate) 85 /min [facility] 04-06-2020 09:25-0400 Pulse Oximetry 100 % [facility] [place] 04-06-2020 09:25-0400 Respiratory Rate 17 /min [facility] 04-06-2020 08:54-0400 Body Temperature 97.81 [degF] [facility], [place] 04-06-2020 08:06-0400 BMI (Body Mass Index) 64.68 kg/m2 [facility] 04-06-2020 08:06-0400 Body weight 165.62 kg [facility]2020 08:06-0400 Height 160 [facility] En[facility]ters Encounter Date Encounter Type Care Provider Facility Start: 07-07-2024 End: 07-07-2024 Emergency department patient visit [facility] Start: 06-01-2024 End: 06-01-2024 Bamboo flowsheet Bushra Nevarez MANAGER SIMULATION Work Phone: [facility] Start: 06-01-2024 End: 06-01-2024 Bamboo flowsheet Bushra Nevarez MANAGER SIMULATION Work Phone: [facility] Start: 06-01-2024 End: 06-01-2024 Office outpatient visit 25 minutes Bushra Nevarez MANAGER SIMULATION Work Phone: [facility] Comment on above: Arthritis of right k nee (Primary Dx); Right knee pain, unspecified chronicity Start: 05-24-2024 End: 05-24-2024 ambulatory Zohra Roberts Facility:[facility] Start: 05-20-2024 End: 05-20-2024 ambulatory BUSHRA NEVAREZ Not Available Start: 05-12-2024 End: 05-12-2024 ambulatory Rohini Girard Knox Facility:[facility] Start: 05-12-2024 End: 05-12-2024 ambulatory Rohini Landrum CLINICAL NEUROPSYCHOLOGIST-BRAND DESIGNER Facility:[facility] Start: 05-05-2024 End: 05-05-2024 ambulatory ELIZABET SIMENTAL Facility:[facility] Start: 05-05-2024 End: 05-05-2024 Patient encounter procedure Karon Monsivais RD Work Phone: [facility] Comment on above: Impaired intestinal absorption (Primary Dx); S/P biliopancreatic diversion with duodenal switch; Class 3 severe obesity with body mass index (BMI) of 60.0 to 69.9 in adult, unspecified obesity type, unspecified whether serious comorbidity present (HCC); Dietary counseling and surveillance Start: 05-05-2024 End: 05-05-2024 Telemedicine consultation with patient Karon Monsivais RD Work Phone: [facility] Start: 04-29-2024 End: 04-29-2024 ambulatory ELIZABET SIMENTAL Facility:[facility] Start: 04-28-2024 End: 04-28-2024 Telephone encounter Prince Colindres SHAPING MACHINE OPERATOR [facility] Comment on above: Cx PT (She called & lm noting she just received a phone call from school and needed to go shredder picker her daughter and take to ER. She said she will be here next week for PT.) Start: 04-27-2024 End: 04-27-2024 Bamboo flowsheet Bushra Nevarez MANAGER SIMULATION Work Phone: [facility] Start: 04-27-2024 End: 04-27-2024 Bamboo flowsheet Bushra Nevarez MANAGER SIMULATION Work Phone: [facility] Start: 04-27-2024 End: 04-27-2024 Office outpatient visit 25 minutes Bushra Nevarez MANAGER SIMULATION Work Phone: [facility] Comment on above: Arthritis of right k nee (Primary Dx); Right knee pain, unspecified chronicity; Internal derangement of right knee; Contusion of right knee, initial encounter; Left knee pain, unspecified chronicity; Arthritis of left knee Start: 04-27-2024 End: 04-27-2024 ambulatory BUSHRA NEVAREZ Not Available Start: 04-21-2024 End: 04-21-2024 Bamboo flowsheet Prince Colindres SHAPING MACHINE OPERATOR [facility] Start: 04-21-2024 End: 04-21-2024 Bamboo flowsheet Prince Colindres SHAPING MACHINE OPERATOR [facility] Start: 04-21-2024 End: 04-21-2024 ambulatory Prince Colindres SHAPING MACHINE OPERATOR [facility] Comment on above: Low [...] surgery Start: 04-19-2024 End: 04-19-2024 ambulatory ELIZABET SIMENTAL Facility:[facility] Start: 04-19-2024 End: 04-19-2024 Telemedicine consultation with patient Amina Nieto MD Work Phone: General Surgery Start: 04-13-2024 End: 04-13-2024 Bamboo flowsheet Bushra Nevarez MANAGER SIMULATION Work Phone: [facility] Start: 04-13-2024 End: 04-13-2024 Bamboo flowsheet Bushra Nevarez MANAGER SIMULATION Work Phone: [facility] Start: 04-13-2024 End: 04-13-2024 Office outpatient visit 25 minutes Bushra Nevarez MANAGER SIMULATION Work Phone: [facility] Comment on above: Right knee pain, uns pecified chronicity (Primary Dx); Arthritis of right knee Start: 04-13-2024 End: 04-13-2024 ambulatory BUSHRA NEVAREZ Not Available Start: 04-12-2024 End: 04-12-2024 Telephone encounter Prince Colindres SHAPING MACHINE OPERATOR [facility] Comment on above: re: Next 2 PT's (She called noting her step-father had this morning and she is traveling out of town; she cx her PT today and on 04/14/24. I reminded and she confirmed PT on 04/19/24.) Start: 04-11-2024 End: 04-11-2024 Emergency department patient visit [facility] Start: 04-07-2024 End: 04-07-2024 Bamboo flowslisa Colindres SHAPING MACHINE OPERATOR [facility] Start: 04-07-2024 End: 04-07-2024 Bamboo flowsheet Prince Colindres SHAPING MACHINE OPERATOR [facility] Start: 04-07-2024 End: 04-07-2024 ambulatory Prince Colindres SHAPING MACHINE OPERATOR [facility] Comment on above: Low back pain, unspe cified back pain laterality, unspecified chronicity, unspecified whether sciatica present (Primary Dx) Start: 04-06-2024 End: 04-06-2024 Emergency department patient visit [facility] Start: 03-31-2024 End: 03-31-2024 Bamboo flowsheet Prince Colindres SHAPING MACHINE OPERATOR [facility] Start: 03-31-2024 End: 03-31-2024 Bamboo flowsheet Prince Colindres SHAPING MACHINE OPERATOR [facility] Start: 03-31-2024 End: 03-31-2024 ambulatory Prince Colindres SHAPING MACHINE OPERATOR [facility] Comment on above: Low back pain, unspe cified back pain laterality, unspecified chronicity, unspecified whether sciatica present (Primary Dx) Start: 03-29-2024 End: 03-29-2024 Bamboo flowsheet Prince Colindres SHAPING MACHINE OPERATOR [facility] Start: 03-29-2024 End: 03-29-2024 Bamboo flowsheet Prince Colindres SHAPING MACHINE OPERATOR [facility] Start: 03-29-2024 End: 03-29-2024 ambulatory Prince Colindres SHAPING MACHINE OPERATOR [facility] Comment on above: Low back pain, unspe cified back pain laterality, unspecified chronicity, unspecified whether sciatica present (Primary Dx) Start: 03-24-2024 End: 03-24-2024 Bamboo flowsheet Sherry Cuellar PT [facility] Start: 03-24-2024 End: 03-24-2024 Bamboo flowsheet Sherry Cuellar PT [facility] Start: 03-24-2024 End: 03-24-2024 ambulatory SHERRY CUELLAR [facility] Comment on above: Low back pain, unspe cified back pain laterality, unspecified chronicity, unspecified whether sciatica present (Primary Dx) Start: 03-23-2024 End: 03-23-2024 Clinisync Result Encounter Jamie Cherri DO Work Phone: [facility] Unsolicited Start: 03-23-2024 End: 03-23-2024 Clinisync Result Encounter Jamie Cherri DO Work Phone: [facility] Unsolicited Start: 03-17-2024 End: 03-17-2024 Bamboo flowsheet Prince Colindres SHAPING MACHINE OPERATOR [facility] Start: 03-17-2024 End: 03-17-2024 Bamboo flowsheet Prince Colindres SHAPING MACHINE OPERATOR [facility] Start: 03-17-2024 End: 03-17-2024 ambulatory PRINCE COLINDRES [facility] Comment on above: Low back pain, unspe cified back pain laterality, unspecified chronicity, unspecified whether sciatica present (Primary Dx) Start: 03-10-2024 End: 03-10-2024 Telephone encounter Sherry Cuellar PT [facility] Comment on above: CX PT today (She harpreet led noting having health issues and unable to make PT today; I reminded of PT 03/15 and she said if unable she'll contact.) Start: 03-07-2024 End: 03-07-2024 Office outpatient visit 15 minutes Jamie Cherri DO Work Phone: [facility] Comment on above: Pelvic pain; Right ovarian cyst Start: 03-07-2024 End: 03-07-2024 ambulatory JAMIE CHERRI Not Available Start: 03-04-2024 End: 03-04-2024 Bamboo flowsheet Sherry Cuellar PT [facility] Start: 03-04-2024 End: 03-04-2024 Bamboo flowsheet Sherry Cuellar PT [facility] Start: 03-04-2024 End: 03-04-2024 Sandhya Nieto MD Work Phone: General Surgery Comment on above: Refill Request Start: 03-04-2024 End: 03-04-2024 ambulatory SHERRY CUELLAR [facility] Comment on above: Low back pain, unspe cified back pain laterality, unspecified chronicity, unspecified whether sciatica present (Primary Dx) Start: 01-06-2024 End: 01-06-2024 ambulatory BUSHRA B APLING Not Available Start: 12-09-2023 End: 12-09-2023 ambulatory BUSHRA B APLING Not Available Start: 12-07-2023 End: 12-07-2023 Evaluation and management of inpatient [facility] Start: 12-02-2023 End: 12-02-2023 Evaluation and management of inpatient [facility] Start: 11-27-2023 End: 11-27-2023 ambulatory [facility] Facility:[facility] Start: 11-17-2023 End: 11-17-2023 ambulatory [facility] Not Available Start: 11-11-2023 End: 11-11-2023 ambulatory BUSHRA Brittny APLING Not Available Start: 11-04-2023 End: 11-04-2023 Evaluation and management of inpatient [facility] Start: 11-04-2023 End: 11-04-2023 Evaluation and management of inpatient [facility] Start: 11-03-2023 End: 11-03-2023 Admission to same day surgery center Amina Nieto MD Work Phone: General Surgery Comment on above: BMI 60.0-69.9, adult (HCC) (Primary Dx); S/P bariatric surgery Start: 11-03-2023 End: 11-03-2023 Telemedicine consultation with patient Amina Nieto MD Work Phone: General Surgery Start: 11-03-2023 End: 11-03-2023 [facility] Start: 11-02-2023 End: 11-02-2023 Admission to same day surgery center Mary Colbert RD Work Phone: General Surgery Comment on above: S/P bariatric surger y (Primary Dx); Impaired intestinal absorption; Body mass index (BMI) 60.0-69.9, adult ([facility]); Dietary counseling and surveillance Encounter for surgic al aftercare following surgery of digestive system (Primary Dx); Impaired intestinal absorption; S/P biliopancreatic diversion with duodenal switch; Iron deficiency; Dietary zinc deficiency; Vitamin D deficiency; S/P bariatric surgery Start: 11-02-2023 End: 11-02-2023 ambulatory [facility] Facility:[facility] Start: 11-02-2023 End: 11-02-2023 Telemedicine consultation with patient Mary Colbert BRENDON Work Phone: General Surgery Start: 10-28-2023 End: 10-28-2023 ambulatory [facility] Facility:[facility] Start: 10-20-2023 End: 10-20-2023 ambulatory [facility] Start: 10-20-2023 Encounter for other preprocedural examination [facility] Start: 10-20-2023 End: 10-22-2023 ambulatory [facility] Start: 10-13-2023 End: 10-13-2023 ambulatory [facility] Not Available Start: 10-07-2023 End: 10-07-2023 ambulatory BUSHRA NEVAREZ Not Available Start: 09-16-2023 End: 09-16-2023 ambulatory JAMIE HARLEY Not Available Start: 09-07-2023 End: 09-07-2023 ambulatory [facility] Facility:[facility] Start: 09-07-2023 End: 09-07-2023 Patient encounter [...] obesity type, unspecified whether serious comorbidity present ([facility]) Start: 09-01-2023 End: 09-01-2023 ambulatory JAMIE HARLEY Not Available Start: 08-31-2023 End: 08-31-2023 Admission to same day surgery center Mary Colbert RD Work Phone: General Surgery Comment on above: S/P bariatric surger y (Primary Dx); Body mass index (BMI) 60.0-69.9, adult (HCC); Dietary counseling and surveillance Start: 08-31-2023 End: 08-31-2023 ambulatory [facility] Facility:[facility] Start: 08-31-2023 End: 08-31-2023 Telemedicine consultation with patient Mary Chiangbelinda OLIVAS Work Phone: [facility] Start: 08-19-2023 End: 08-19-2023 ambulatory Karon Yodit OLIVAS Work Phone: Endocrinology BMI Comment on above: Impaired intestinal absorption (Primary Dx); S/P biliopancreatic diversion with duodenal switch; Class 3 severe obesity with body mass index (BMI) of 60.0 to 69.9 in adult, unspecified obesity type, unspecified whether serious comorbidity present (HCC); Dietary counseling and surveillance Start: 08-19-2023 End: 08-19-2023 Telemedicine consultation with patient Karon Macarioveronica OLIVAS Work Phone: [facility] Start: 08-17-2023 End: 08-17-2023 ambulatory [facility] Facility:[facility] Start: 08-17-2023 End: 08-17-2023 Patient encounter procedure Jayshree Huffman CLINICAL NEUROPSYCHOLOGIST.BRAND DESIGNER Work Phone: Endocrinology BMI Comment on above: S/P gastrointestinal surgery, follow-up exam (Primary Dx); Status post biliopancreatic diversion with duodenal switch; Post-operative nausea and vomiting Start: 08-13-2023 Telephone encounter Cynthia Peterson RN General Surgery Comment on above: Post Op Start: 08-04-2023 End: 08-11-2023 Evaluation and management of inpatient JOE GRANDA Facility:[facility] Start: 08-03-2023 Telephone encounter Gen Curry RN General Surgery Start: 07-22-2023 End: 07-22-2023 ambulatory ELIZABET RUMSCHLAG Facility:[facility] Start: 07-22-2023 Encounter for other preprocedural examination ELIZABET RUMNORAHLAG [facility] Start: 07-21-2023 End: 07-21-2023 ambulatory ELIZABET RUMSCHLAG Facility:[facility] Start: 07-20-2023 End: 07-20-2023 ambulatory ELIZABET RUMSCHLAG Facility:[facility] Start: 07-14-2023 End: 07-14-2023 ambulatory ELIZABET RUMSCHLAG Facility:[facility] Start: 07-13-2023 End: 07-13-2023 ambulatory ELIZABET RUMSCHLAG Facility:[facility] Start: 05-09-2023 Admission to [facility] Joe Granda MD Work Phone: Endocrinology BMI Comment on above: About surgery Start: 05-09-2023 ambulatory Joe izquierdo MD Work Phone: [facility] Start: 05-08-2023 ambulatory Joe izquierdo MD Work Phone: General Surgery Comment on above: Confirming Or Date Start: 05-08-2023 E-mail encounter fro m caregiver Joe Granda MD Work Phone: [facility] Start: 04-27-2023 Telephone encounter Joe sargent MD Work Phone: Endocrinology BMI Start: 04-13-2023 End: 04-13-[address] Work Phone: General Surgery Comment on above: Patient left without being seen (Primary Dx) Start: 04-13-2023 End: 04-13-2023 Telemedicine consultation with patient Mary Sayra OLIVAS Work Phone: [facility] Start: 03-31-2023 End: 04-01-2023 Evaluation and management of inpatient JOE GRANDA Facility:[facility] Start: 03-10-2023 End: 03-10-2023 [facility] Ramon 2 Work Phone: Pre Anesthesia Comment on above: Pre-op evaluation (P rimary Dx); Morbid obesity with body mass index of 60.0-69.9 in adult ([facility]); Gastroesophageal reflux disease, unspecified whether esophagitis present; TONEY on CPAP; Bipolar affective disorder, remission status unspecified ([facility]); Thrombocytosis; Migraine without status migrainosus, not intractable, unspecified migraine type Surgery question Start: 03-10-2023 End: 03-10-2023 Preprocedural examination done [place] [id number] Work Phone: [facility] Work Phone: Start: 03-05-2023 End: 03-05-2023 [facility] Isabela Davismichelle OLIVAS Work Phone: General Surgery Comment on above: Weight gain followin g gastric bypass surgery (Primary Dx); Abnormal weight gain; Preop testing; Snoring; Sleep-disordered breathing; Fatigue, unspecified type; S/P bariatric surgery; S/P gastric sleeve procedure; Dietary counseling and surveillance; BMI 60.0-69.9, adult ([facility]) Start: 03-05-2023 End: 03-05-2023 Patient encounter status Isabela Davismichelle OLIVAS Work Phone: [facility] Work Phone: Start: 01-05-2023 Telephone encounter Joe sargent MD Work Phone: Endocrinology BMI Comment on above: Schedule Surgery (DS ) Start: 12-15-2022 End: 12-15-2022 Admission to same day surgery center Isabela Davismichelle OLIVAS Work Phone: General Surgery Comment on above: S/P gastric sleeve p rocedure (Primary Dx); Weight gain following gastric bypass surgery; BMI 60.0-69.9, adult ([facility]); Dietary counseling and surveillance Start: 12-15-2022 End: 12-15-2022 Telemedicine consultation with patient Isabela Davismichelle OLIVAS Work Phone: [facility] Start: 12-13-2022 Office outpatient vi sit 15 minutes Linda South [facility] [place] Start: 12-13-2022 End: 12-13-2022 ambulatory Linda South [facility] Other Start: 12-03-2022 Admission to [facility] Joe Granda MD Work Phone: General Surgery Comment on above: Insurance Authorizat ion (Not Real Surgery Date) Start: 12-03-2022 ambulatory Joe izquierdo MD Work Phone: [facility] Start: 11-03-2022 End: 11-04-[address] DOCTOR ALFARO Facility:[facility]1 Start: 08-27-2022 End: 08-28-[address] DOCTOR ALFARO Facility:[facility]1 Start: 08-19-2022 End: 08-19-2022 ambulatory MICHELLE GOMEZ . Facility:[facility]1 Start: 08-17-2022 Encounter for other preprocedural examination DR DOCTOR ALFARO [facility] Start: 08-12-2022 End: 08-13-[address] DOCTOR ALFARO Facility:[facility]1 Start: 08-12-2022 End: 08-13-2022 Encounter for other preprocedural examination DR DOCTOR ALFARO Facility:[facility]1 Start: 07-22-[address] DOCTOR ALFARO Facility :[facility]1 Start: 06-04-2022 End: 06-04-2022 [facility] Amina Nieto MD Work Phone: Endocrinology BMI [...] Start: 04-16-2022 End: 04-16-2022 ambulatory Christa [facility] Start: 04-16-2022 End: 04-16-2022 Patient encounter procedure [facility] [place] Start: 04-16-2022 End: 04-16-2022 ambulatory Joe Granda MD Work Phone: Endocrinology BMI Comment on above: Morbid obesity with body mass index of 60.0-69.9 in adult (HCC) (Primary Dx); Gastroesophageal reflux disease, unspecified whether esophagitis present Start: 04-16-2022 End: 04-16-2022 Telemedicine consultation with patient Joe Granda MD Work Phone: [facility] Start: 04-16-2022 End: 04-16-2022 ambulatory NON STAFF [facility] Work Phone: Start: 04-16-2022 Office outpatient vi sit 15 minutes Christa Tyler [facility] [place] Start: 04-15-2022 ambulatory Pao Hodgson RN Work Phone: Endocrinology BMI Comment on above: Upper GI Series Start: 04-15-2022 E-mail encounter fro m caregiver Pao Hodgson RN Work Phone: [facility] Start: 04-11-2022 End: 04-12-[address] ESTELLA WHITEHEAD Facility:[facility]1 Start: 04-01-2022 End: 04-01-[address] KAT MUNGUIA . Facility:[facility]1 Start: 03-27-2022 End: 03-27-2022 ambulatory Rob Garcia Other [employer] Other Start: 03-27-2022 Telephone encounter Rob FOWLER [facility] Start: 03-10-2022 End: 03-10-2022 ambulatory Joe Granda MD Work Phone: Endocrinology BMI Comment on above: History of sleeve ga strectomy (Primary Dx) Start: 03-10-2022 End: 03-10-2022 Telemedicine consultation with patient Joe Granda MD Work Phone: [facility] Start: 02-17-2022 End: 02-17-2022 ambulatory Joe Granda MD Work Phone: Endocrinology BMI Comment on above: NO SHOW (Primary Dx) Start: 02-17-2022 End: 02-17-2022 Telemedicine consultation with patient Joe Granda MD Work Phone: [facility] Start: 02-12-2022 End: 02-12-2022 Subsequent hospital visit by physician Shireen Pagan [facility] Work Phone: [facility] CT Scan Comment on above: Acquired [...] Joe Granda MD Work Phone: [facility] Start: 01-17-2022 End: 01-17-2022 ambulatory [...] End: 12-05-2021 Telemedicine consultation with patient Akosua Karmen OLIVAS Work Phone: [facility] Start: 11-13-2021 End: 11-13-2021 ambulatory Christa Tyler Other [employer] Other Start: 11-13-2021 Office outpatient vi sit 15 minutes Christa Tyler [facility] [place] Start: 11-04-2021 End: 11-04-[address] Work Phone: Endocrinology BMI Comment on above: Reassessment; Patien t Education Start: 11-04-2021 End: 11-04-2021 Patient encounter procedure Joe Granda MD Work Phone: Endocrinology BMI Comment on above: History of sleeve ga strectomy (Primary Dx); Gastric fistula Start: 10-28-2021 End: 10-28-2021 ambulatory Estella Nguyen Other [employer] Other Start: 10-28-2021 Telephone encounter Estella Nguyen [facility] G[facility] Start: 10-23-2021 End: 10-23-2021 ambulatory Celsa Argueta Other [employer] Other Start: 10-23-2021 Telephone encounter Celsa Argueta [facility] Start: 10-11-2021 End: 10-11-2021 ambulatory Bambi Gonzalez Other [employer] Other Start: 10-11-2021 Patient encounter procedure Bambi Gonzalez [facility] [place] Start: 10-03-2021 End: 10-03-2021 ambulatory Mary Blakely Other [employer] Other Start: 10-03-2021 Office outpatient vi sit 25 minutes Mary Blakely [facility] [place] Start: 09-30-2021 Office consultation new/estab patient 40 min Prince Lyles Yuliet Work Phone: [id number] Work Phone: Start: 09-25-2021 Orders Only Joe izquierdo MD Work Phone: General Surgery Comment on above: Dysphagia, unspecifi ed type (Primary Dx); Gastroesophageal reflux disease, unspecified whether esophagitis present; History of sleeve gastrectomy Start: 09-24-2021 E-mail encounter rajiv girard caregiver Jayshree Nathanael ADAMSONBRAND DESIGNER Work Phone: [facility] Start: 09-24-2021 Follow-up encounter Jayshree tilley APRN.BRAND DESIGNER Work Phone: General Surgery Comment on above: Appointment follow u p Start: 09-23-2021 End: 09-23-2021 ambulatory Jayshree Nathanael [employer] DES[employer] Work Phone: General Surgery Comment on above: Gastroesophageal ref lux disease, unspecified whether esophagitis present (Primary Dx); Class 3 severe obesity with serious comorbidity and body mass index (BMI) of 60.0 to 69.9 in adult, unspecified obesity type (HCC); TONEY on CPAP; S/P laparoscopic sleeve gastrectomy; Postoperative malabsorption Start: 09-23-2021 End: 09-23-2021 Telemedicine consultation with patient Jayshree Huffman BRAND DESIGNER Work Phone: [facility] Start: 05-17-2021 End: 05-17-2021 Office outpatient new 45 minutes Humza Walter MD Work Phone: [facility] Comment on above: S/P laparoscopic sle nikki gastrectomy (Primary Dx); TONEY on CPAP; Morbid obesity with body mass index of 50 or higher; Gastroesophageal reflux disease, unspecified whether esophagitis present; Screening for viral disease; Other intestinal malabsorption Start: 04-06-2020 End: 04-06-2020 Patient encounter procedure KYLAH VARGAS [facility] Start: 04-06-2020 End: 04-06-2020 Subsequent hospital visit by physician Kylah Vargas Work Phone: [facility] Figueredo [facility] Comment on above: S/P laparoscopic sle nikki gastrectomy (Primary Dx) Start: 04-02-2020 End: 04-07-2020 Patient encounter procedure CHANA THOMAS [facility] Start: 04-02-2020 Patient encounter procedure ELIZABET SIMENTAL [facility] Start: 04-02-2020 End: 04-06-2020 Subsequent hospital visit by physician Franklin Hernandez19 Pat Screening Schedule MTHZ PRE ADMIT Comment on above: Preop testing Start: 01-06-2017 End: 01-07-2017 [facility] Procedures Date Procedure Procedure Detail Performing Clinician Start: 06-01-2024 Arthrocentesis aspir&/inj major jt/bursa w/o us Bushra Mart Apling MANAGER SIMULATION Work Phone: Start: 04-27-2024 Arthrocentesis aspir&/inj major jt/bursa w/o us Bushra Mart Apling MANAGER SIMULATION Work Phone: Start: 04-13-2024 Arthrocentesis aspir&/inj major jt/bursa w/o us Bushra Mart Apling MANAGER SIMULATION Work Phone: Start: 03-23-2024 [facility] Jamie Cherri DO Work Phone: Start: 08-31-2023 Adult depression screening assessment Karon Monsivais RD Work Phone: Start: 08-04-2023 History of gastrointestinal tract bypass S/P biliopancreatic diversion with duodenal switch Mary Colbert RD Work Phone: Start: 07-22-2023 Antibody screen ELIZABET SIMENTAL Comment on above: Order Comment: Specimen Type: BLOOD SPEC IMEN Ordering Facility: [facility] Address: [address] [place] [address] [place] [address] Performed By: #### [id number] #### [facility] CLIA [id number] [address] [place] [id number] Start: 04-16-2022 X-ray of right foot Start: 02-12-2022 Ct abdomen & pelvis w/contrast material Joe Granda MD Work Phone: Start: 12-18-2021 Esophagogastroduodenoscopy transoral diagnostic Jayshree Huffman CLINICAL NEUROPSYCHOLOGIST.BRAND DESIGNER Work Phone: Start: 08-19-2021 Adult depression screening assessment Jayshree Huffman CLINICAL NEUROPSYCHOLOGIST.BRAND DESIGNER Work Phone: Start: 04-06-2020 Level iv surg [...] Phone: Start: 01-06-2017 DRUG SCREEN, PAIN ROSAURA ASHISH Cholecystectomy Prince giles Work Phone: Decompression of median nerve Prince Horvath Work Phone: Comment on above: Bilateral; History of gastroint estinal tract bypass Status post biliopancreatic diversion with duodenal switch Jayshree Nathanael CLINICAL NEUROPSYCHOLOGIST.BRAND DESIGNER Work Phone: History of gastroint estinal tract bypass S/P biliopancreatic diversion with duodenal switch Karon Monsivais RD Work Phone: History of gastroint estinal tract bypass S/P biliopancreatic diversion with duodenal switch Jayshree Nathanael CLINICAL NEUROPSYCHOLOGIST.BRAND DESIGNER Work Phone: History of gastroint estinal tract bypass S/P biliopancreatic diversion with duodenal switch Jayshree Nathanael CLINICAL NEUROPSYCHOLOGIST.BRAND DESIGNER Work Phone: History of gastroint estinal tract bypass S/P biliopancreatic diversion with duodenal switch Amina Nieto MD Work Phone: History of gastroint estinal tract bypass S/P biliopancreatic diversion with duodenal switch Karon Monsivais RD Work Phone: Splenectomy Prince Cabrera y Work Phone: Plan of Treatment Date Care Activity Detail Author Start: 08-11-2029 DTaP/Tdap/Td vaccine (2 - Td) DTaP/Tdap/Td vaccine (2 - Td) [place] Start: 08-11-2029 Urine microalbumin profile DTaP,Tdap,Td Vaccine (2 - Td or Tdap) [facility] Start: 01-03-2025 Meningococcal (ACWY) vaccine (3 - Risk start after 7 months 2-dose series) Meningococcal (ACWY) vaccine (3 - Risk start after 7 months 2-dose series) [place], [place] Start: 08-30-2024 Anxiety Screening Anxiety Screening [facility] Start: 08-30-2024 Depression Screening Depression Screening [facility] Start: 07-04-2024 End: 07-04-2024 Patient encounter procedure 07/04/2024 2:20 PM EST Office Visit [facility] [address] [place] [id number] Jamie Harley, [address] [place] [address] [facility] Start: 06-13-2024 End: 06-13-2024 Patient encounter procedure 06/13/2024 10:15 AM EST Office Visit [facility] [address] [place] [address] Bushra Nevarez MANAGER SIMULATION [address] [place] [address] [facility] Start: 06-01-2024 End: 06-01-2024 Patient encounter procedure 06/01/2024 10:45 AM EST Office Visit [facility] [address] [place] [address] Bushra Nevarez MANAGER SIMULATION [address] [place] [address] Arthritis of right knee (Primary Dx); Right knee pain, unspecified chronicity [facility] Comment on above: Arthritis of right knee (Primary Dx); Right knee pain, unspecified chronicity Start: 05-05-2024 End: 05-05-2024 ambulatory 05/05/2024 1:00 PM EST Treatment [facility] [address] [place] [address] Babar Lipscomb PTA [facility] Start: 05-05-2024 End: 05-05-2024 Patient encounter procedure Endocrinology BMI Comment on above: 6 mo post op Start: 05-03-2024 End: 05-03-2024 Patient encounter procedure 05/03/2024 2:40 PM EST Office Visit [facility] [address] [place] [address] Jamie Harley, [address] [place] [address] [facility] Start: 05-03-2024 End: 05-03-2024 ambulatory 05/03/2024 1:30 PM EST Treatment [facility] [address] [place] [address] Sherry Cuellar, PT [facility] Start: 04-29-2024 End: 04-29-2024 Patient encounter procedure 04/29/2024 1:[address] Office [address] [facility] [address] [place] [address] [place] [address] [facility] Comment on above: lab Start: 04-28-2024 End: 04-28-2024 ambulatory 04/28/2024 1:00 PM EDT Treatment [facility] [address] [place] [address] Prince Colindres, LONNY [facility] Start: 04-27-2024 End: 04-27-2025 [...] [address] [place] [address] Darrel Mccauley MD [address] [place] [id number] [facility] [address] Start: 04-26-2024 End: 04-26-2024 ambulatory 04/26/2024 12:30 PM EDT Treatment [facility] [address] [place] [address] Prince Colindres, SHAPING MACHINE OPERATOR [facility] Start: 04-21-2024 End: 04-21-2024 ambulatory [facility] Comment on above: Arrived Start: 04-19-2024 End: 07-19-2024 25-hydroxyvitamin D3 [Mass/volume] in Serum or Plasma VITAMIN D 25 HYDROXY Lab Routine BMI 60.0-69.9, adult (HCC) S/P bariatric surgery S/P biliopancreatic diversion with duodenal switch Prediabetes Expected: 04/19/2024, Expires: 07/19/2024 [facility] Comment on above: Expected: 04/19/2024, Expires: Start: 04-19-2024 End: 07-19-2024 CBC panel - Blood by Automated count COMPLETE BLOOD COUNT Lab Routine BMI 60.0-69.9, adult (HCC) S/P bariatric surgery S/P biliopancreatic diversion with duodenal switch Prediabetes Expected: 04/19/2024, Expires: 07/19/2024 [facility] Work Phone: Comment on above: Expected: 04/19/2024, Expires: Start: 04-19-2024 End: 07-19-2024 Cobalamin (Vitamin B12) [Mass/volume] in Serum or Plasma VITAMIN B12 Lab Routine BMI 60.0-69.9, adult (HCC) S/P bariatric surgery S/P biliopancreatic diversion with duodenal switch Prediabetes Expected: 04/19/2024, Expires: 07/19/2024 [facility] Comment on above: Expected: 04/19/2024, Expires: Start: 04-19-2024 End: 07-19-2024 Comprehensive metabolic 2000 panel - Serum or Plasma COMPREHENSIVE METABOLIC PANEL Lab Routine BMI 60.0-69.9, adult (HCC) S/P bariatric surgery S/P biliopancreatic diversion with duodenal switch Prediabetes Expected: 04/19/2024, Expires: 07/19/2024 [facility] Comment on above: Expected: 04/19/2024, Expires: Start: 04-19-2024 End: 07-19-2024 Folate [Mass/volume] in Serum or Plasma FOLATE, SERUM Lab Routine BMI 60.0-69.9, adult (HCC) S/P bariatric surgery S/P biliopancreatic diversion with duodenal switch Prediabetes Expected: 04/19/2024, Expires: 07/19/2024 [facility] Comment on above: Expected: 04/19/2024, Expires: Start: 04-19-2024 End: 07-19-2024 Hemoglobin A1c in Blood HEMOGLOBIN A1C Lab Routine BMI 60.0-69.9, adult ([facility]) S/P bariatric surgery S/P biliopancreatic diversion with duodenal switch Prediabetes Expected: 04/19/2024, Expires: 07/19/2024 [facility] Comment on above: Expected: 04/19/2024, Expires: Start: 04-19-2024 End: 07-19-2024 Iron and Iron binding capacity panel - Serum or Plasma IRON AND TIBC Lab Routine BMI 60.0-69.9, adult ([facility]) S/P bariatric surgery S/P biliopancreatic diversion with duodenal switch Prediabetes Expected: 04/19/2024, Expires: 07/19/2024 [facility] Comment on above: Expected: 04/19/2024, Expires: Start: 04-19-2024 End: 07-19-2024 Lipid 1996 panel - Serum or Plasma LIPID PANEL BASIC Lab Routine BMI 60.0-69.9, adult ([facility]) S/P bariatric surgery S/P biliopancreatic diversion with duodenal switch Prediabetes Expected: 04/19/2024, Expires: 07/19/2024 [facility] Comment on above: Expected: 04/19/2024, Expires: Start: 04-19-2024 End: 07-19-2024 Parathyrin.intact [Mass/volume] in Serum or Plasma PTH INTACT Lab Routine BMI 60.0-69.9, adult ([facility]) S/P bariatric surgery S/P biliopancreatic diversion with duodenal switch Prediabetes Expected: 04/19/2024, Expires: 07/19/2024 [facility] Comment on above: Expected: 04/19/2024, Expires: Start: 04-19-2024 End: 07-19-2024 Retinol [Mass/volume] in Serum or Plasma VITAMIN A/RETINOL Lab Routine BMI 60.0-69.9, adult (HCC) S/P bariatric surgery S/P biliopancreatic diversion with duodenal switch Prediabetes Expected: 04/19/2024, Expires: 07/19/2024 [facility] Comment on above: Expected: 04/19/2024, Expires: Start: 04-19-2024 End: 07-19-2024 Thyrotropin [Units/volume] in Serum or Plasma THYROID STIMULATING HORMONE Lab Routine BMI 60.0-69.9, adult (HCC) S/P bariatric surgery S/P biliopancreatic diversion with duodenal switch Prediabetes Expected: 04/19/2024, Expires: 07/19/2024 [facility] Comment on above: Expected: 04/19/2024, Expires: Start: 04-19-2024 End: 07-19-2024 VITAMIN B1 (THIAMINE), WHOLE BLOOD VITAMIN B1 (THIAMINE), WHOLE BLOOD Lab Routine BMI 60.0-69.9, adult (HCC) S/P bariatric surgery S/P biliopancreatic diversion with duodenal switch Prediabetes Expected: 04/19/2024, Expires: 07/19/2024 [facility] Comment on above: Expected: 04/19/2024, Expires: Start: 04-19-2024 End: 07-19-2024 Zinc [Mass/volume] in Serum or Plasma ZINC BLD Lab Routine BMI 60.0-69.9, adult (HCC) S/P bariatric surgery S/P biliopancreatic diversion with duodenal switch Prediabetes Expected: 04/19/2024, Expires: 07/19/2024 [facility] Comment on above: Expected: 04/19/2024, Expires: Start: 04-19-2024 End: 04-19-2024 ambulatory [facility] Comment on above: Arrived Start: 04-19-2024 End: 04-19-2024 Follow-up encounter 04/19/2024 11:30 AM EDT [facility] [address] [id number] Amina Nieto MD [address] [id number] FOLLOW UP General Surgery Comment on above: FOLLOW UP Start: 04-14-2024 End: 04-14-2024 ambulatory 04/14/2024 12:30 PM EDT Treatment [facility] [address] [facility] [address] [place] [address] Prince Colindres PTA [facility] Start: 04-13-2024 End: 04-13-2024 Patient encounter procedure [facility] Comment on above: Right knee pain, unspecified chronicity (Primary Dx); Arthritis of right knee Start: 04-12-2024 End: 04-12-2024 Patient encounter procedure 04/12/2024 2:20 PM EDT Office Visit [facility] [address] [place] [address] Jamie Harley, [address] [place] [address] [facility] Start: 04-12-2024 End: 04-12-2024 ambulatory 04/12/2024 10:30 AM EDT Treatment [facility] [address] [facility] [address] [place] [address] Prince Colindres, LONNY [facility] Start: 04-07-2024 End: 04-07-2024 ambulatory [facility] Comment on above: Arrived Start: 04-05-2024 End: 04-05-2024 ambulatory 04/05/2024 1:30 PM EDT Treatment [facility] [address] [facility] [address] [place] [address] Sherry Cuellar, PT [facility] Start: 03-31-2024 End: 03-31-2024 ambulatory [facility] Comment on above: Low back pain, unspecified back pain lat erality, unspecified chronicity, unspecified whether sciatica present (Primary Dx) Start: 03-29-2024 End: 03-29-2024 Patient encounter procedure 03/29/2024 2:00 PM EDT Office Visit [facility] [address] [address] [place] [address] Darrel Mccauley MD [address] [place] [address] [facility] [place] [facility] Start: 03-29-2024 End: 03-29-2024 ambulatory 03/29/2024 11:30 AM EDT Treatment [facility] [address] [place] [address] Prince Colindres, SHAPING MACHINE OPERATOR [facility] Start: 03-24-2024 End: 03-24-2024 ambulatory 03/24/2024 1:00 PM EDT Treatment [facility] [address] [place] [address] Sherry Cuellar, PT [facility] Start: 03-22-2024 End: 03-22-2024 ambulatory 03/22/2024 12:30 PM EDT Treatment [facility] [address] [place] [address] Prince Colindres, SHAPING MACHINE OPERATOR [facility] Start: 03-17-2024 End: 03-17-2024 ambulatory [facility] Comment on above: Arrived Start: 03-15-2024 End: 03-15-2024 ambulatory 03/15/2024 12:30 PM EDT Treatment [facility] [address] [place] [address] Sherry Cuellar, PT [facility] Start: 03-10-2024 End: 03-10-2024 ambulatory 03/10/2024 12:30 PM EDT Treatment [facility] [address] [place] [address] Sherry Cuellar, PT [facility] Start: 03-08-2024 End: 03-08-2024 ambulatory 03/08/2024 12:30 PM EDT Treatment [facility] [address] [place] [address] Prince Colindres, SHAPING MACHINE OPERATOR [facility] Start: 03-07-2024 End: 03-07-2024 Patient encounter procedure 03/07/2024 2:40 PM EDT Office Visit [facility] [address] [facility] [place] [address] Jamie Harley DO [address] [place] [address] [facility] Start: 03-07-2024 End: 03-07-2025 US for US PELVIS-TRANSVAG IF INDICATED Imaging Routine Pelvic pain Right ovarian cyst Expected: 03/07/2024 (Approximate), Expires: 03/07/2025 [facility] Work Phone: Comment on above: Expected: 03/07/2024 (Approximate), Expi res: 03/07/2025 Start: 03-04-2024 End: 03-04-2024 ambulatory 03/04/2024 12:30 PM EDT Evaluation [facility] [address] [facility] [address] [place] [address] Sherry Cuellar, PT Arrived [facility] Comment on above: Arrived Start: 02-28-2024 Covid-19 Vaccine ( season) Covid-19 Vaccine ( season) [facility] Start: 02-28-2024 Covid-19 Vaccine ( season) Covid-19 Vaccine ( season) [facility] Start: 02-28-2024 Influenza vaccination [facility] Start: 02-10-2024 End: 02-10-2024 Follow-up encounter 02/10/2024 2:15 PM EDT [facility] Endocrinology BMI [address] [facility] [place], [place] [id number] Amina Nieto MD [address] [place] [address] follow up Endocrinology BMI Comment on above: follow up Start: 11-18-2023 End: 11-18-2023 ambulatory 11/18/2023 11:30 AM EDT Results Only [facility] [address] [facility] [facility] [place] [address] [facility] Start: 10-26-2023 End: 01-25-2024 25-hydroxyvitamin D3 [Mass/volume] in Serum or Plasma VITAMIN D 25 HYDROXY Lab Routine S/P biliopancreatic diversion with duodenal switch Impaired intestinal absorption Expected: 10/26/2023 (Approximate), Expires: 01/25/2024 [facility] Work Phone: Comment on above: Expected: 10/26/2023 (Approximate), Expi res: 01/25/2024 Start: 10-26-2023 End: 01-25-2024 Alpha tocopherol [Mass/volume] in Serum or Plasma VITAMIN E/TOCOPHEROL Lab Routine S/P biliopancreatic diversion with duodenal switch Impaired intestinal absorption Expected: 10/26/2023 (Approximate), Expires: 01/25/2024 [facility] Work Phone: Comment on above: Expected: 10/26/2023 (Approximate), Expi res: 01/25/2024 Start: 10-26-2023 End: 01-25-2024 CBC panel - Blood by Automated count CBC Lab Routine S/P biliopancreatic diversion with duodenal switch Open abdominal incision with drainage, subsequent encounter Impaired intestinal absorption Expected: 10/26/2023 (Approximate), Expires: 01/25/2024 [facility] Work Phone: Comment on above: Expected: 10/26/2023 (Approximate), Expi res: 01/25/2024 Start: 10-26-2023 End: 01-25-2024 Cobalamin (Vitamin B12) [Mass/volume] in Serum or Plasma VITAMIN B12 BLOOD Lab Routine S/P biliopancreatic diversion with duodenal switch Impaired intestinal absorption Expected: 10/26/2023 (Approximate), Expires: 01/25/2024 [facility] Work Phone: Comment on above: Expected: 10/26/2023 (Approximate), Expi res: 01/25/2024 Start: 10-26-2023 End: 01-25-2024 Comprehensive metabolic 2000 panel - Serum or Plasma COMP METABOLIC PANEL Lab Routine S/P biliopancreatic diversion with duodenal switch Impaired intestinal absorption Expected: 10/26/2023 (Approximate), Expires: 01/25/2024 [facility] Work Phone: Comment on above: Expected: 10/26/2023 (Approximate), Expi res: 01/25/2024 Start: 10-26-2023 End: 01-25-2024 Ferritin [Mass/volume] in Serum or Plasma FERRITIN BLD Lab Routine S/P biliopancreatic diversion with duodenal switch Impaired intestinal absorption Expected: 10/26/2023 (Approximate), Expires: 01/25/2024 [facility] Work Phone: Comment on above: Expected: 10/26/2023 (Approximate), Expi res: 01/25/2024 Start: 10-26-2023 End: 01-25-2024 Folate [Mass/volume] in Serum or Plasma FOLATE SERUM Lab Routine S/P biliopancreatic diversion with duodenal switch Impaired intestinal absorption Expected: 10/26/2023 (Approximate), Expires: 01/25/2024 [facility] Work Phone: Comment on above: Expected: 10/26/2023 (Approximate), Expi res: 01/25/2024 Start: 10-26-2023 End: 01-25-2024 Hemoglobin A1c in Blood HGB A1C Lab Routine S/P biliopancreatic diversion with duodenal switch Impaired intestinal absorption Expected: 10/26/2023 (Approximate), Expires: 01/25/2024 [facility] Work Phone: Comment on above: Expected: 10/26/2023 (Approximate), Expi res: 01/25/2024 Start: 10-26-2023 End: 01-25-2024 Iron and Iron binding capacity panel - Serum or Plasma IRON + TIBC Lab Routine S/P biliopancreatic diversion with duodenal switch Impaired intestinal absorption Expected: 10/26/2023 (Approximate), Expires: 01/25/2024 [facility] Work Phone: Comment on above: Expected: 10/26/2023 (Approximate), Expi res: 01/25/2024 Start: 10-26-2023 End: 01-25-2024 Parathyrin.intact [Mass/volume] in Serum or Plasma PTH INTACT BLD Lab Routine S/P biliopancreatic diversion with duodenal switch Impaired intestinal absorption Expected: 10/26/2023 (Approximate), Expires: 01/25/2024 [facility] Work Phone: Comment on above: Expected: 10/26/2023 (Approximate), Expi res: 01/25/2024 Start: 10-26-2023 End: 01-25-2024 Retinol [Mass/volume] in Serum or Plasma VITAMIN A/RETINOL Lab Routine S/P biliopancreatic diversion with duodenal switch Impaired intestinal absorption Expected: 10/26/2023 (Approximate), Expires: 01/25/2024 [facility] Work Phone: Comment on above: Expected: 10/26/2023 (Approximate), Expi res: 01/25/2024 Start: 10-26-2023 End: 01-25-2024 VITAMIN B1 (THIAMINE), WHOLE BLOOD VITAMIN B1 (THIAMINE), WHOLE BLOOD Lab Routine S/P biliopancreatic diversion with duodenal switch Impaired intestinal absorption Expected: 10/26/2023 (Approximate), Expires: 01/25/2024 [facility] Work Phone: Comment on above: Expected: 10/26/2023 (Approximate), Expi res: 01/25/2024 Start: 10-26-2023 End: 01-25-2024 VITAMIN K VITAMIN K Lab Routine S/P biliopancreatic diversion with duodenal switch Impaired intestinal absorption Expected: 10/26/2023 (Approximate), Expires: 01/25/2024 [facility] Work Phone: Comment on above: Expected: 10/26/2023 (Approximate), Expi res: 01/25/2024 Start: 10-26-2023 End: 01-25-2024 Zinc [Mass/volume] in Serum or Plasma ZINC BLD Lab Routine S/P biliopancreatic diversion with duodenal switch Impaired intestinal absorption Expected: 10/26/2023 (Approximate), Expires: 01/25/2024 [facility] Work Phone: Comment on above: Expected: 10/26/2023 (Approximate), Expi res: 01/25/2024 Start: 06-29-2023 Depression Assessment Depression Assessment [facility] Start: 02-27-2023 Covid-19 Vaccine () Covid-19 Vaccine () [facility] Start: 02-27-2023 Influenza vaccination [facility] Start: 08-19-2022 Adult depression screening assessment DEPRESSION SCREENING [facility] Start: 06-29-2022 DEPRESSION ASSESSMENT DEPRESSION ASSESSMENT [facility] Start: 05-13-2022 End: 08-23-2022 Coagulation factor VIII activity actual/normal in Platelet poor plasma by Coagulation assay FACTOR VIII:C ASSAY Lab Routine BMI 70 and over, adult (HCC) Gastroesophageal reflux disease, unspecified whether esophagitis present Expected: 05/13/2022 (Approximate), Expires: 08/23/2022 [facility] Work Phone: Comment on above: Expected: 05/13/2022 (Approximate), Expi res: 08/23/2022 Start: 05-13-2022 End: 08-23-2022 CONFIRM BLOOD TYPE CONFIRM BLOOD TYPE Blood Bank Routine BMI 70 and over, adult (HCC) Gastroesophageal reflux disease, unspecified whether esophagitis present Expected: 05/13/2022 (Approximate), Expires: 08/23/2022 [facility] Work Phone: Comment on above: Expected: 05/13/2022 (Approximate), Expi res: 08/23/2022 Start: 05-13-2022 End: 08-23-2022 TYPE AND SCREEN,30 DAY TYPE AND SCREEN,30 DAY Blood Bank Routine BMI 70 and over, adult (HCC) Gastroesophageal reflux disease, unspecified whether esophagitis present Expected: 05/13/2022 (Approximate), Expires: 08/23/2022 [facility] Work Phone: Comment on above: Expected: 05/13/2022 (Approximate), Expi res: 08/23/2022 Start: 03-10-2022 End: 05-10-2022 25-hydroxyvitamin D3 [Mass/volume] in Serum or Plasma VITAMIN D 25 HYDROXY Lab Routine History of sleeve gastrectomy Expected: 03/10/2022, Expires: 05/10/2022 [facility] Work Phone: Comment on above: Expected: 03/10/2022, Expires: 2 Start: 03-10-2022 End: 05-10-2022 CBC W Auto Differential panel - Blood CBC + DIFF Lab Routine History of sleeve gastrectomy Expected: 03/10/2022, Expires: 05/10/2022 [facility] Work Phone: Comment on above: Expected: 03/10/2022, Expires: 2 Start: 03-10-2022 End: 05-10-2022 Cobalamin (Vitamin B12) [Mass/volume] in Serum or Plasma VITAMIN B12 BLOOD Lab Routine History of sleeve gastrectomy Expected: 03/10/2022, Expires: 05/10/2022 [facility] Work Phone: Comment on above: Expected: 03/10/2022, Expires: 2 Start: 03-10-2022 End: 05-10-2022 Comprehensive metabolic 2000 panel - Serum or Plasma COMP METABOLIC PANEL Lab Routine History of sleeve gastrectomy Expected: 03/10/2022, Expires: 05/10/2022 [facility] Work Phone: Comment on above: Expected: 03/10/2022, Expires: 2 Start: 03-10-2022 End: 05-10-2022 Folate [Mass/volume] in Serum or Plasma FOLATE SERUM Lab Routine History of sleeve gastrectomy Expected: 03/10/2022, Expires: 05/10/2022 [facility] Work Phone: Comment on above: Expected: 03/10/2022, Expires: 2 Start: 03-10-2022 End: 05-10-2022 Iron and Iron binding capacity panel - Serum or Plasma IRON + TIBC Lab Routine History of sleeve gastrectomy Expected: 03/10/2022, Expires: 05/10/2022 [facility] Work Phone: Comment on above: Expected: 03/10/2022, Expires: 2 Start: 03-10-2022 End: 05-10-2022 Prealbumin [Mass/volume] in Serum or Plasma PREALBUMIN BLD Lab Routine History of sleeve gastrectomy Expected: 03/10/2022, Expires: 05/10/2022 [facility] Work Phone: Comment on above: Expected: 03/10/2022, Expires: 2 Start: 03-10-2022 End: 05-10-2022 VITAMIN B1 (THIAMINE), WHOLE BLOOD VITAMIN B1 (THIAMINE), WHOLE BLOOD Lab Routine History of sleeve gastrectomy Expected: 03/10/2022, Expires: 05/10/2022 [facility] Work Phone: Comment on above: Expected: 03/10/2022, Expires: 2 Start: 02-27-2022 Influenza vaccination INFLUENZA (#1) [facility] Start: 12-01-2021 COVID-19 VACCINE (3 - Booster for Pfizer series) COVID-19 VACCINE (3 - Booster for Pfizer series) [facility] Start: 11-04-2021 End: 01-04-2022 CBC W Auto Differential panel - Blood CBC + DIFF Lab Routine History of sleeve gastrectomy Expected: 11/04/2021, Expires: 01/04/2022 [facility] Work Phone: Comment on above: Expected: 11/04/2021, Expires: 2 Start: 11-04-2021 End: 01-04-2022 Comprehensive metabolic 2000 panel - Serum or Plasma COMP METABOLIC PANEL Lab Routine History of sleeve gastrectomy Expected: 11/04/2021, Expires: 01/04/2022 [facility] Work Phone: Comment on above: Expected: 11/04/2021, Expires: 2 Start: 11-04-2021 End: 01-04-2022 Folate [Mass/volume] in Serum or Plasma FOLATE SERUM Lab Routine History of sleeve gastrectomy Expected: 11/04/2021, Expires: 01/04/2022 [facility] Work Phone: Comment on above: Expected: 11/04/2021, Expires: 2 Start: 11-04-2021 End: 01-04-2022 IRON + TIBC IRON + TIBC Lab Routine History of sleeve gastrectomy Expected: 11/04/2021, Expires: 01/04/2022 [facility] Work Phone: Comment on above: Expected: 11/04/2021, Expires: 2 Start: 11-04-2021 End: 01-04-2022 LIPID PANEL BASIC LIPID PANEL BASIC Lab Routine History of sleeve gastrectomy Expected: 11/04/2021, Expires: 01/04/2022 [facility] Work Phone: Comment on above: Expected: 11/04/2021, Expires: 2 Start: 11-04-2021 End: 01-04-2022 Prealbumin [Mass/volume] in Serum or Plasma PREALBUMIN BLD Lab Routine History of sleeve gastrectomy Expected: 11/04/2021, Expires: 01/04/2022 [facility] Work Phone: Comment on above: Expected: 11/04/2021, Expires: 2 Start: 11-04-2021 End: 01-04-2022 VITAMIN B1 (THIAMINE), WHOLE BLOOD VITAMIN B1 (THIAMINE), WHOLE BLOOD Lab Routine History of sleeve gastrectomy Expected: 11/04/2021, Expires: 01/04/2022 [facility] Work Phone: Comment on above: Expected: 11/04/2021, Expires: 2 Start: 11-04-2021 End: 01-04-2022 VITAMIN B12 BLOOD VITAMIN B12 BLOOD Lab Routine History of sleeve gastrectomy Expected: 11/04/2021, Expires: 01/04/2022 [facility] Work Phone: Comment on above: Expected: 11/04/2021, Expires: 2 Start: 11-04-2021 End: 01-04-2022 VITAMIN D 25 HYDROXY VITAMIN D 25 HYDROXY Lab Routine History of sleeve gastrectomy Expected: 11/04/2021, Expires: 01/04/2022 [facility] Work Phone: Comment on above: Expected: 11/04/2021, Expires: 2 Start: 09-23-2021 End: 11-23-2021 CBC panel - Blood by Automated count CBC Lab Routine Gastroesophageal reflux disease, unspecified whether esophagitis present Class 3 severe obesity with serious comorbidity and body mass index (BMI) of 60.0 to 69.9 in adult, unspecified obesity type (HCC) Postoperative malabsorption Expected: 09/23/2021, Expires: 11/23/2021 [facility] Work Phone: Comment on above: Expected: 09/23/2021, Expires: 2 Start: 09-23-2021 End: 11-23-2021 Choriogonadotropin ( test) [Presence] in Urine HCG QUAL UR Lab Routine Gastroesophageal reflux disease, unspecified whether esophagitis present Class 3 severe obesity with serious comorbidity and body mass index (BMI) of 60.0 to 69.9 in adult, unspecified obesity type (HCC) Postoperative malabsorption Expected: 09/23/2021, Expires: 11/23/2021 [facility] Work Phone: Comment on above: Expected: 09/23/2021, Expires: 2 Start: 09-23-2021 End: 11-23-2021 Comprehensive metabolic 2000 panel - Serum or Plasma COMP METABOLIC PANEL Lab Routine Gastroesophageal reflux disease, unspecified whether esophagitis present Class 3 severe obesity with serious comorbidity and body mass index (BMI) of 60.0 to 69.9 in adult, unspecified obesity type (HCC) Postoperative malabsorption Expected: 09/23/2021, Expires: 11/23/2021 [facility] Work Phone: Comment on above: Expected: 09/23/2021, Expires: 2 Start: 09-23-2021 End: 11-23-2021 FERRITIN BLD FERRITIN BLD Lab Routine Gastroesophageal reflux disease, unspecified whether esophagitis present Class 3 severe obesity with serious comorbidity and body mass index (BMI) of 60.0 to 69.9 in adult, unspecified obesity type (HCC) Postoperative malabsorption Expected: 09/23/2021, Expires: 11/23/2021 [facility] Work Phone: Comment on above: Expected: 09/23/2021, Expires: 2 Start: 09-23-2021 End: 11-23-2021 Folate [Mass/volume] in Serum or Plasma FOLATE SERUM Lab Routine Gastroesophageal reflux disease, unspecified whether esophagitis present Class 3 severe obesity with serious comorbidity and body mass index (BMI) of 60.0 to 69.9 in adult, unspecified obesity type (HCC) Postoperative malabsorption Expected: 09/23/2021, Expires: 11/23/2021 [facility] Work Phone: Comment on above: Expected: 09/23/2021, Expires: 2 Start: 09-23-2021 End: 11-23-2021 Hemoglobin A1c/Hemoglobin.total in Blood HGB A1C Lab Routine Gastroesophageal reflux disease, unspecified whether esophagitis present Class 3 severe obesity with serious comorbidity and body mass index (BMI) of 60.0 to 69.9 in adult, unspecified obesity type (HCC) Postoperative malabsorption Expected: 09/23/2021, Expires: 11/23/2021 [facility] Work Phone: Comment on above: Expected: 09/23/2021, Expires: 2 Start: 09-23-2021 End: 11-23-2021 IRON + TIBC IRON + TIBC Lab Routine Gastroesophageal reflux disease, unspecified whether esophagitis present Class 3 severe obesity with serious comorbidity and body mass index (BMI) of 60.0 to 69.9 in adult, unspecified obesity type (HCC) Postoperative malabsorption Expected: 09/23/2021, Expires: 11/23/2021 [facility] Work Phone: Comment on above: Expected: 09/23/2021, Expires: 2 Start: 09-23-2021 End: 11-23-2021 LIPID PANEL BASIC LIPID PANEL BASIC Lab Routine Gastroesophageal reflux disease, unspecified whether esophagitis present Class 3 severe obesity with serious comorbidity and body mass index (BMI) of 60.0 to 69.9 in adult, unspecified obesity type (HCC) Postoperative malabsorption Expected: 09/23/2021, Expires: 11/23/2021 [facility] Work Phone: Comment on above: Expected: 09/23/2021, Expires: 2 Start: 09-23-2021 End: 11-23-2021 NICOTINE & METAB, UR NICOTINE & METAB, UR Lab Routine Gastroesophageal reflux disease, unspecified whether esophagitis present Class 3 severe obesity with serious comorbidity and body mass index (BMI) of 60.0 to 69.9 in adult, unspecified obesity type (HCC) Postoperative malabsorption Expected: 09/23/2021, Expires: 11/23/2021 [facility] Work Phone: Comment on above: Expected: 09/23/2021, Expires: 2 Start: 09-23-2021 End: 11-23-2021 PTH INTACT BLD PTH INTACT BLD Lab Routine Gastroesophageal reflux disease, unspecified whether esophagitis present Class 3 severe obesity with serious comorbidity and body mass index (BMI) of 60.0 to 69.9 in adult, unspecified obesity type (HCC) Postoperative malabsorption Expected: 09/23/2021, Expires: 11/23/2021 [facility] Work Phone: Comment on above: Expected: 09/23/2021, Expires: 2 Start: 09-23-2021 End: 11-23-2021 Thyrotropin [Units/volume] in Serum or Plasma TSH BLD Lab Routine Gastroesophageal reflux disease, unspecified whether esophagitis present Class 3 severe obesity with serious comorbidity and body mass index (BMI) of 60.0 to 69.9 in adult, unspecified obesity type (HCC) Postoperative malabsorption Expected: 09/23/2021, Expires: 11/23/2021 [facility] Work Phone: Comment on above: Expected: 09/23/2021, Expires: 2 Start: 09-23-2021 End: 11-23-2021 TOX SCREEN ROUT UR TOX SCREEN ROUT UR Lab Routine Gastroesophageal reflux disease, unspecified whether esophagitis present Class 3 severe obesity with serious comorbidity and body mass index (BMI) of 60.0 to 69.9 in adult, unspecified obesity type (HCC) Postoperative malabsorption Expected: 09/23/2021, Expires: 11/23/2021 [facility] Work Phone: Comment on above: Expected: 09/23/2021, Expires: 2 Start: 09-23-2021 End: 11-23-2021 VITAMIN B1 (THIAMINE), WHOLE BLOOD VITAMIN B1 (THIAMINE), WHOLE BLOOD Lab Routine Gastroesophageal reflux disease, unspecified whether esophagitis present Class 3 severe obesity with serious comorbidity and body mass index (BMI) of 60.0 to 69.9 in adult, unspecified obesity type (HCC) Postoperative malabsorption Expected: 09/23/2021, Expires: 11/23/2021 [facility] Work Phone: Comment on above: Expected: 09/23/2021, Expires: 2 Start: 09-23-2021 End: 11-23-2021 VITAMIN B12 BLOOD VITAMIN B12 BLOOD Lab Routine Gastroesophageal reflux disease, unspecified whether esophagitis present Class 3 severe obesity with serious comorbidity and body mass index (BMI) of 60.0 to 69.9 in adult, unspecified obesity type (HCC) Postoperative malabsorption Expected: 09/23/2021, Expires: 11/23/2021 [facility] Work Phone: Comment on above: Expected: 09/23/2021, Expires: 2 Start: 09-23-2021 End: 11-23-2021 VITAMIN D 25 HYDROXY VITAMIN D 25 HYDROXY Lab Routine Gastroesophageal reflux disease, unspecified whether esophagitis present Class 3 severe obesity with serious comorbidity and body mass index (BMI) of 60.0 to 69.9 in adult, unspecified obesity type (HCC) Postoperative malabsorption Expected: 09/23/2021, Expires: 11/23/2021 [facility] Work Phone: Comment on above: Expected: 09/23/2021, Expires: 2 Start: 08-28-2021 COVID-19 VACCINE (3 - Booster for Pfizer series) COVID-19 VACCINE (3 - Booster for Pfizer series) [facility] Start: 08-28-2021 COVID-19 VACCINE (3 - Pfizer series) COVID-19 VACCINE (3 - Pfizer series) [facility] Start: 06-29-2021 DEPRESSION ASSESSMENT DEPRESSION ASSESSMENT [facility] Start: 05-30-2021 End: 05-30-2021 Nutrition therapy 05/30/2021 Clinical Support Encounter Nutrition and Dietetics Angelo Cedillo, RD [address] [place] [place] [address] [facility] Start: 05-17-2021 End: 05-17-2022 B12/folate level B12 & FOLATE Lab Routine S/P laparoscopic sleeve gastrectomy TONEY on CPAP Morbid obesity with body mass index of 50 or higher Gastroesophageal reflux disease, unspecified whether esophagitis present Other intestinal malabsorption Expected: 05/17/2021, Expires: 05/17/2022 [facility] Comment on above: Expected: 05/17/2021, Expires: 2 Start: 05-17-2021 End: 05-17-2022 Complete blood count with white cell differential, automated CBC, EDIF, PLATELET Lab Routine S/P laparoscopic sleeve gastrectomy TONEY on CPAP Morbid obesity with body mass index of 50 or higher Gastroesophageal reflux disease, unspecified whether esophagitis present Other intestinal malabsorption Expected: 05/17/2021, Expires: 05/17/2022 [facility] Comment on above: Expected: 05/17/2021, Expires: 2 Start: 05-17-2021 End: 05-17-2022 Comprehensive metabolic 2000 panel - Serum or Plasma COMPREHENSIVE METABOLIC PANEL Lab Routine S/P laparoscopic sleeve gastrectomy TONEY on CPAP Morbid obesity with body mass index of 50 or higher Gastroesophageal reflux disease, unspecified whether esophagitis present Other intestinal malabsorption Expected: 05/17/2021, Expires: 05/17/2022 [facility] Comment on above: Expected: 05/17/2021, Expires: 2 Start: 05-17-2021 End: 05-17-2022 Diagnostic radiography of chest, combined PA and lateral XR CHEST PA AND LATERAL Imaging Routine S/P laparoscopic sleeve gastrectomy TONEY on CPAP Morbid obesity with body mass index of 50 or higher Gastroesophageal reflux disease, unspecified whether esophagitis present Other intestinal malabsorption Expected: 05/17/2021, Expires: 05/17/2022 [facility] Comment on above: Expected: 05/17/2021, Expires: 2 Start: 05-17-2021 End: 05-17-2022 Fluoroscopy of upper gastrointestinal tract XR FLUORO UPPER GI, WATER SOLUBLE AND/OR BARIUM CONTRAST Imaging Routine S/P laparoscopic sleeve gastrectomy Gastroesophageal reflux disease, unspecified whether esophagitis present Expected: 05/17/2021, Expires: 05/17/2022 [facility] Comment on above: Expected: 05/17/2021, Expires: 2 Start: 05-17-2021 End: 05-17-2022 Hemoglobin A1c/Hemoglobin.total in Blood HEMOGLOBIN A1C Lab Routine S/P laparoscopic sleeve gastrectomy TONEY on CPAP Morbid obesity with body mass index of 50 or higher Gastroesophageal reflux disease, unspecified whether esophagitis present Other intestinal malabsorption Expected: 05/17/2021, Expires: [facility]22 [facility] above: Expected: 05/17/2021, Expires: 2 Start: 05-17-2021 End: 05-17-2022 IRON/IRON BINDING/TRANSFERRIN IRON/IRON BINDING/TRANSFERRIN Lab Routine S/P laparoscopic sleeve gastrectomy TONEY on CPAP Morbid obesity with body mass index of 50 or higher Gastroesophageal reflux disease, unspecified whether esophagitis present Other intestinal malabsorption Expected: 05/17/2021, Expires: 05/17/2022 [facility] Comment on above: Expected: 05/17/2021, Expires: 2 Start: 05-17-2021 End: 05-17-2022 LIPID PANEL W CALCULATED LDL LIPID PANEL W CALCULATED LDL Lab Routine S/P laparoscopic sleeve gastrectomy TONEY on CPAP Morbid obesity with body mass index of 50 or higher Gastroesophageal reflux disease, unspecified whether esophagitis present Other intestinal malabsorption Expected: 05/17/2021, Expires: 05/17/2022 [facility] Comment on above: Expected: 05/17/2021, Expires: 2 Start: 05-17-2021 End: 05-17-2022 NOVEL CORONAVIRUS LAB 1 - NASOPHARYNGEAL NOVEL CORONAVIRUS LAB 1 - NASOPHARYNGEAL Microbiology STAT Screening for viral disease Expected: 05/17/2021, Expires: 05/17/2022 [facility] Comment on above: Expected: 05/17/2021, Expires: 2 Start: 05-17-2021 End: 05-17-2022 Standard ECG ECG ECG Routine S/P laparoscopic sleeve gastrectomy TONEY on CPAP Morbid obesity with body mass index of 50 or higher Gastroesophageal reflux disease, unspecified whether esophagitis present Other intestinal malabsorption Expected: 05/17/2021, Expires: 05/17/2022 [facility] Comment on above: Expected: 05/17/2021, Expires: 2 Start: 05-17-2021 End: 05-17-2022 Thyrotropin [Units/volume] in Serum or Plasma TSH Lab Routine S/P laparoscopic sleeve gastrectomy TONEY on CPAP Morbid obesity with body mass index of 50 or higher Gastroesophageal reflux disease, unspecified whether esophagitis present Other intestinal malabsorption Expected: 05/17/2021, Expires: 05/17/2022 [facility] Comment on above: Expected: 05/17/2021, Expires: 2 Start: 05-17-2021 End: 05-17-2022 VITAMIN B1 VITAMIN B1 Lab Routine S/P laparoscopic sleeve gastrectomy TONEY on CPAP Morbid obesity with body mass index of 50 or higher Gastroesophageal reflux disease, unspecified whether esophagitis present Other intestinal malabsorption Expected: 05/17/2021, Expires: 05/17/2022 [facility] Comment on above: Expected: 05/17/2021, Expires: 2 Start: 05-17-2021 End: 05-17-2022 VITAMIN D (25-HYDROXY,TOTAL) VITAMIN D (25-HYDROXY,TOTAL) Lab Routine S/P laparoscopic sleeve gastrectomy TONEY on CPAP Morbid obesity with body mass index of 50 or higher Gastroesophageal reflux disease, unspecified whether esophagitis present Other intestinal malabsorption Expected: 05/17/2021, Expires: 05/17/2022 [facility] Comment on above: Expected: 05/17/2021, Expires: 2 Start: 05-17-2021 End: 05-17-2022 ZINC, SERUM ZINC, SERUM Lab Routine S/P laparoscopic sleeve gastrectomy TONEY on CPAP Morbid obesity with body mass index of 50 or higher Gastroesophageal reflux disease, unspecified whether esophagitis present Other intestinal malabsorption Expected: 05/17/2021, Expires: 05/17/2022 [facility] Comment on above: Expected: 05/17/2021, Expires: 2 Start: 02-27-2021 Influenza vaccination INFLUENZA VACCINE (#1) [facility] Start: 04-06-2020 End: 04-06-2021 FL UGI FL UGI Imaging Routine S/P laparoscopic sleeve gastrectomy Expected: 04/06/2020, Expires: 04/06/2021 [place] Comment on above: Expected: 04/06/2020, Expires: 1 Start: 02-28-2020 Influenza vaccination Flu vaccine (#1) [place] Start: 02-27-2020 Pneumococcal 0-64 years Vaccine (2 of 3 - PPSV23) Pneumococcal 0-64 years Vaccine (2 of 3 - PPSV23) [place] Start: 08-31-2019 Hepatitis B Vaccine (3 of 3 - 19+ 3-dose series) Hepatitis B Vaccine (3 of 3 - 19+ 3-dose series) [facility] Start: 2015 HPV TESTING HPV TESTING [facility] Start: 2015 Screening for malignant neoplasm of cervix [facility] Start: 10-16-2011 PAP TESTING PAP TESTING [facility] Start: 10-16-2011 Screening for malignant neoplasm of cervix Pap Testing [facility] Start: 10-15-2009 Screening for malignant neoplasm of cervix Cervical Cancer Screening [facility] Start: 2006 Screening for malignant neoplasm of cervix [facility] Start: 2004 Third diphtheria, tetanus and acellular pertussis (DTaP) vaccination TDAP (ADULT) [facility] Start: 2004 Urine microalbumin profile DTAP,TDAP,TD (1 - Tdap) [facility] Start: 2003 Anxiety Screening Anxiety Screening [facility] Start: 2003 Depression Screening Depression Screening [facility] Start: 2003 HEPATITIS C SCREENING HEPATITIS C SCREENING [facility] Start: 2003 Hepatitis C screening Hepatitis C Screening [facility] Start: 2003 HIV SCREENING HIV SCREENING [facility] Start: 2003 HIV screening HIV Screening [facility] Start: 2003 Tetanus vaccination TETANUS [facility] Start: 2000 HIV screening [facility] Start: 1995 Meningococcal B vaccine (1 of 4 - Increased Risk Bexsero 2-dose series) Meningococcal B vaccine (1 of 4 - Increased Risk Bexsero 2-dose series) [place] Start: 1990 COVID-19 VACCINE (1) COVID-19 VACCINE (1) [facility] Start: 1986 Varicella vaccine (1 of 2 - 2-dose childhood series) Varicella vaccine (1 of 2 - 2-dose childhood series) [place] Start: 1985 HEPATITIS B (1 of 3 - 3-dose series) HEPATITIS B (1 of 3 - 3-dose series) [facility] Start: 1985 Hepatitis C antibody, confirmatory test HEPATITIS C VIRUS SCREENING [facility] End: 04-02-2020 COVID-19 Ambulatory COVID-19 Ambulatory Lab Routine Preop testing 1 Occurrences starting 04/02/2020 until 04/02/2020 [place] Comment on above: 1 Occurrences starting 04/02/2020 until 04/02/2020 End: 12-04-2022 Ct abdomen & pelvis w/contrast material CT ABD/PEL W IVCON Radiology Routine History of sleeve gastrectomy Gastric fistula 1 Occurrences starting 11/04/2021 until 12/04/2022 [facility] Work Phone: Comment on above: 1 Occurrences starting 11/04/2021 until 12/04/2022 End: 09-23-2022 ECG COMPLETE ECG COMPLETE ECG Routine TONEY on CPAP Gastroesophageal reflux disease, unspecified whether esophagitis present Class 3 severe obesity with serious comorbidity and body mass index (BMI) of 60.0 to 69.9 in adult, unspecified obesity type (HCC) Postoperative malabsorption 1 Occurrences starting 09/23/2021 until 09/23/2022 [facility] Work Phone: Comment on above: 1 Occurrences starting 09/23/2021 until 09/23/2022 End: 05-31-2023 ECG COMPLETE ECG COMPLETE ECG Routine Abnormal weight gain Preop testing Snoring Sleep-disordered breathing Fatigue, unspecified type S/P bariatric surgery BMI 70 and over, adult ([facility]) 1 Occurrences starting 06/04/2022 until 05/31/2023 [facility] Work Phone: Comment on above: 1 Occurrences starting 06/04/2022 until 05/31/2023 End: 03-10-2024 ECG COMPLETE ECG COMPLETE ECG Routine Pre-op evaluation Morbid obesity with body mass index of 60.0-69.9 in adult ([facility]) Gastroesophageal reflux disease, unspecified whether esophagitis present TONEY on CPAP Bipolar affective disorder, remission status unspecified ([facility]) Thrombocytosis Migraine without status migrainosus, not intractable, unspecified migraine type 1 Occurrences starting 03/10/2023 until 03/10/2024 [facility] Work Phone: Comment on above: 1 Occurrences starting 03/10/2023 until 03/10/2024 Oxygen therapy [[facility] Data Set] Initiate Oxygen Therapy Protocol Respiratory Care Routine Daily until discontinued [facility] on above: Daily until discontinued starting 2019 Phase I & II - meter ed glucose Phase I & II - metered glucose Point of Care Testing Routine As Needed until discontinued starting 04/06/2020 [facility] Comment on above: As Needed until discontinued starting End: 05-31-2023 Polysomnogram POLYSOMNOGRAM (PSG) Procedures Routine Abnormal weight gain Preop testing Snoring Sleep-disordered breathing Fatigue, unspecified type S/P bariatric surgery BMI 70 and over, adult ([facility]) 1 Occurrences starting 06/04/2022 until 05/31/2023 [facility] Work Phone: Comment on above: 1 Occurrences starting 06/04/2022 until 05/31/2023 End: 10-23-2022 Radiologic exam chest 2 views XR CHEST 2V FRONTAL/LAT Radiology Routine TONEY on CPAP Gastroesophageal reflux disease, unspecified whether esophagitis present Class 3 severe obesity with serious comorbidity and body mass index (BMI) of 60.0 to 69.9 in adult, unspecified obesity type ([facility]) Postoperative malabsorption 1 Occurrences starting 09/23/2021 until 10/23/2022 [facility] Work Phone: Comment on above: 1 Occurrences starting 09/23/2021 until 10/23/2022 End: 05-18-2023 Radiologic exam chest 2 views XR CHEST 2V FRONTAL/LAT Radiology Routine BMI 70 and over, adult (HCC) Gastroesophageal reflux disease, unspecified whether esophagitis present 1 Occurrences starting 04/18/2022 until 05/18/2023 [facility] Work Phone: Comment on above: 1 Occurrences starting 04/18/2022 until 05/18/2023 End: 07-01-2023 Radiologic exam chest 2 views XR CHEST 2V FRONTAL/LAT Radiology Routine Abnormal weight gain Preop testing Snoring Sleep-disordered breathing Fatigue, unspecified type S/P bariatric surgery BMI 70 and over, adult (HCC) 1 Occurrences starting 06/04/2022 until 07/01/2023 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 Work Phone: Comment on above: Ordered: 04/18/2022 Surgical Pathology Surgical Path ology Lab Routine Release Upon Ordering for 1 Occurrences starting 04/06/2020 [place] Comment on above: Release Upon Ordering [...] (HCC) 1 Occurrences starting 09/23/2021 until 10/23/2022 [facility] Work Phone: Comment on above: 1 Occurrences starting 09/23/2021 until 10/23/2022 End: 12-04-2022 XR UPPER GI SINGLE CONTRAST XR UPPER GI SINGLE CONTRAST Radiology Routine History of sleeve gastrectomy Gastric fistula 1 Occurrences starting 11/04/2021 until 12/04/2022 [facility] Work Phone: Comment on above: 1 Occurrences starting 11/04/2021 until 12/04/2022 [facility] Immunizations Immunization Date Immunization Notes Care Provider Octavio [facility] 06-13-2021 Influenza, injectabl e, Madin [place] Canine Kidney, preservative free, quadrivalent Pac 2 Work Phone: [facility] 06-13-2021 influenza virus vacc ine, unspecified formulation Pac 2 Work Phone: [facility] 01-04-2020 meningococcal oligosaccharide (groups A, C, Y and W-135) diphtheria toxoid conjugate vaccine (MCV4O) Pac 2 Work Phone: [facility] 01-04-2020 meningococcal vaccin e of unknown formulation and unknown serogroups [place] 01-02-2020 pneumococcal conjuga te vaccine, 13 valent Pac 2 Work Phone: [facility] 01-02-2020 tuberculin skin test ; purified protein derivative solution, intradermal Amina Nieto MD Work Phone: [facility] 12-26-2019 tuberculin skin test ; purified protein derivative solution, intradermal Amina Nieto MD Work Phone: [facility] 08-11-2019 tetanus toxoid, redu herbie diphtheria toxoid, and acellular pertussis vaccine, adsorbed Pac 2 Work Phone: [facility] 06-20-2019 influenza, injectabl e, quadrivalent, preservative free Pacc 2 Work Phone: [facility] 06-07-2019 influenza, injectabl e, quadrivalent, preservative free Pacc 2 Work Phone: [facility] 05-30-2019 influenza, high dose seasonal, preservative-free Pacc 2 Work Phone: [facility] 04-04-2019 hepatitis B vaccine, adult dosage Pacc 2 Work Phone: [facility] 03-02-2019 hepatitis B vaccine, adult dosage Pacc 2 Work Phone: [facility] 05-12-2017 influenza, injectabl e, quadrivalent, preservative free Pacc 2 Work Phone: [facility] 04-21-2016 influenza, seasonal, injectable, preservative free [facility] 04-27-2015 influenza, injectabl e, madin jared canine kidney, preservative free Pacc 2 Work Phone: [facility] 12-18-2014 haemophilus influenz ae type b vaccine, PRP-T conjugate Pacc 2 Work Phone: [facility] 12-18-2014 meningococcal oligosaccharide (groups A, C, Y and W-135) diphtheria toxoid conjugate vaccine (MCV4O) Pacc 2 Work Phone: [facility] Payers Date Payer Category Payer Medicaid [id number] 2022 Unknown 2022 Self-pay [id number] 2020 Medicaid [id number] 2020 Unknown [id number] 1.2 .[id number].315 2014 Unknown [id number] 1985 Unknown [id number] 2.16.8 40.1.919770.3.579.2.177 1985 Unknown [id number] 2.16.8 40.1.674408.3.579.2.173 1985 Unknown [id number] 2.16.8 40.1.971112.3.579.2.175 1985 Unknown [id number] 2.16.84 0.1.202581.3.579.2.593 1985 Unknown [id number] 2.16.84 0.1.013455.3.579.2.593 1985 Unknown [id number] 2.16.84 0.1.469070.3.579.2.593 1985 Unknown [id number] 2.16.84 0.1.007564.3.579.2.593 1985 Unknown [id number] 2.16.84 0.1.099170.3.579.2.593 1985 Unknown [id number] 2.16.84 0.1.481290.3.579.2.593 1985 Unknown [id number] 2.16.84 0.1.848217.3.579.2.593 1985 Unknown [id number] 2.16.84 0.1.760965.3.579.2.593 1985 Unknown [id number] 2.16.84 0.1.132990.3.579.2.1259 1985 Unknown [id number] 2.16.84 0.1.166880.3.579.2.1259 1985 Unknown [id number] 2.16.84 0.1.759032.3.579.2.1259 1985 Unknown [id number] 2.16.84 0.1.306112.3.579.2.1259 1985 Unknown [id number] 2.16.84 0.1.553125.3.579.2.1259 1985 Unknown [id number] 2.16.84 0.1.145522.3.579.2.1258 1985 Unknown [id number] 2.16.84 0.1.917111.3.579.2.1258 1985 Unknown [id number] 2.16.84 0.1.406551.3.579.2.1258 1985 Unknown [id number] 2.16.84 0.1.767331.3.579.2.1258 1985 Unknown [id number] 2.16.84 0.1.770182.3.579.2.1258 1985 Unknown [id number] 2.16.84 0.1.171192.3.579.2.1258 1985 Unknown [id number] 2.16.84 0.1.002001.3.579.2.1258 1985 Unknown [id number] 2.16.84 0.1.995280.3.579.2.1258 1985 Unknown [id number] 2.16.84 0.1.745952.3.579.2.1258 1985 Unknown [id number] 2.16.84 0.1.331794.3.579.2.1258 1985 Unknown [id number] 2.16.84 0.1.109566.3.579.2.1258 1985 Unknown [id number] 2.16.84 0.1.548224.3.579.2.1258 1985 Unknown [id number] 2.16.84 0.1.876880.3.579.2.1258 1985 Unknown [id number] 2.16.84 0.1.589680.3.579.2.1258 1985 Unknown [id number] 2.16.84 0.1.059987.3.579.2.1258 1985 Unknown [id number] 2.16.84 0.1.174838.3.579.2.1258 1985 Unknown [id number] 2.16.8 40.1.661029.3.579.2.718 1985 Unknown [id number] 2.16.8 40.1.303951.3.579.2.718 1985 Unknown [id number] 2.16. 840.1.228931.3.579.2.196 1985 Unknown [id number] 2.16. 840.1.867119.3.579.2.1286 1985 Unknown [id number] 2.16.8 40.1.717697.3.579.2.1285 1985 Unknown [id number] 2.16.8 40.1.151863.3.579.2.1285 1985 Unknown [id number] 2.16.8 40.1.670176.3.579.2.1285 1985 Unknown [id number] 2.16.8 40.1.203555.3.579.2.1285 1985 Unknown [id number] 2.16.8 40.1.567794.3.579.2.1285 1985 Unknown [id number] 2.16.8 40.1.350769.3.579.2.1285 1985 Unknown [id number] 2.16.8 40.1.435146.3.579.2.1285 1985 Unknown [id number] 2.16.8 40.1.694204.3.579.2.1285 1985 Unknown [id number] 2.16.8 40.1.676051.3.579.2.1286 1985 Unknown [id number] 2.16.8 40.1.393848.3.579.2.128 1985 Unknown [id number] 2.16.8 40.1.310610.3.579.2.1286 1959 Unknown [id number] 2.1 6.840.1.752527.19 Unknown [id number] 2.16.8 40.1.687514.3.579.2.531 Unknown [id number] 2.16.8 40.1.328851.3.579.2.531 Social History Date Type Detail Facility Start: 04-06-2020 End: 10-13-2023 Tobacco smoking status NHIS Former smoker [facility] Start: 04-06-2020 Tobacco use and exposure Former user [place] Start: 04-06-2020 Alcohol intake 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 (finding) [place] Start: 1985 Sex Assigned At Not on file M [place], [place] Start: 10-25-2021 End: 02-12-2022 Exposure to SARS-CoV-2 (event) Not sure [place] Start: 05-17-2021 Tobacco smoking stat us [facility] Never smoked tobacco [facility] Start: 05-17-2021 End: 10-13-2023 Tobacco use and exposure Smokeless tobacco non-user [facility] Start: 05-17-2021 Alcohol intake Lifetime non-d suresh (finding) [facility] Start: 06-29-2003 End: 12-27-2013 History of tobacco use Current smoker [facility] Start: 06-29-2003 End: 12-27-2013 History of tobacco use Cigarette Smoker [facility] Start: 05-06-2019 End: 01-06-2024 Cigarettes smoked current (pack per day) - Reported 0.5 [facility] 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; Start: 09-23-2021 End: 03-07-2024 Alcohol intake Ex-drinker (finding) [facility] Start: 09-23-2021 History SDOH Alcohol Comment None since 2012 [facility] Start: 1985 Sex Assigned At Female [facility] Start: 12-05-2021 End: 01-06-2024 Sex Assigned At [facility] Adult Depression Screening Assessment 0 [facility] Start: 07-09-2021 Gender identity Identifies as female gender (finding) [facility] Start: 07-09-2021 Sexual orientation Heterosexual (davide vital) [facility] Has the electric, [employer], oil, or water company threatened to shut off services in your home in past 12Mo No [facility] (I/We) worried wheth er (my/our) food would run out before (I/we) got money to buy more. Never true [facility] Start: 08-31-2023 Alcohol Comment caffeine: 2-3 cups per day [facility] Clinical Notes 05-17-2021 to 06-01-2024 Bushra Nevarez, MANAGER SIMULATION - 06/01/2024 10:45 AM ESTPatient Karon Sheikh, RD - 05/05/2024 10:54 AM Chrystal Nevarez, MANAGER SIMULATION - 04/27/2024 11:30 AM EDTSbeatrice Cuellar, PT - 04/19/2024 1:30 PM EDT Note Date & Type Note Facility 06-01-2024 History of Present illness Narrative Associated Order(s): L Inj/Asp: R knee Post-Procedure Diagnose(s): Arthritis of right knee Images from the original note were not included. Subjective Patient ID: Susi Ortiz is a 38 y.o. female. RT knee pain S/p MRI NOMS 05/20/24 RT knee Pt states she fell about 9 weeks ago and fell onto the right knee (she believes on 03/30/24). States she fell forward landing on both knees onto carpet and she fell hard. She is not sure what happened, she states she just stood up and fell onto the knee. Went to [facility] ER and had xrays, which were negative for fracture. She was advised to ice, elevate and take OTC meds and was referred to ortho. Notes she had issues with both knees prior to the fall. States knee has gotten a little worse, more painful more often. Pain is mostly anterior knee. Did have a couple times where she had pain posteriorly. Denies radiation. Taking IBU or TYL. Denies topicals. Pain with flexion and extension. Admits popping and grinding. Denies N/T, swelling. Admits giving out a few times. Does not wake at HS. States she has to constantly reposition her leg. Pain is 7-8/10 today, goes to 10/10 with prolonged WB. Sometimes will be 10/10 with sitting. TX: [facility] ER/XR right knee 04/06/24, motrin, ice, depo medrol injection 04/13/24, MRI NOMS 05/20/24 RT knee Objective Ortho Exam Knee Musculoskeletal Exam Gait Limp: right Inspection Right Erythema: none Effusion: none Edema: none Ecchymosis: none Palpation Right Crepitus: patellofemoral Tenderness: present Patella: moderate Range of Motion Right Active extension: 0 Active flexion: 115 L Inj/Asp: R knee on 06/01/2024 11:14 AM Indications: pain Details: 20 G needle, anterolateral approach Medications: 40 mg methylPREDNISolone acetate 40 MG/ML UTILIZING ASEPTIC TECHNIQUE PT GIVEN INJECTION IN RIGHT KNEE, NEUROVASC INTACT S/P INJ, TOLERATED WELL Procedure, treatment alternatives, risks and benefits explained, specific risks discussed. Consent was given by the patient. I reviewed the [facility] it is unremarkable for fracture, chondromalacia of the patella is noted. Assessment/Plan Encounter Diagnoses: ICD-10-CM 1. Arthritis of right knee M17.11 2. Right knee pain, unspecified chronicity M25.561 Discussion of options, pt notes she would like an injection, side effects of bleeding and infection discussed, would like to proceed with the injection, using aspectic technique 40 mg of depo medrol was injected into the right lateral knee, pt tolerated well, bandaid applied, may do activities as tolerated, f/u in 2 weeks. Discussed therapy in addition and she will think about it I documented in this encounter [facility] 05-05-[address] - 05/05/2024 [...] 60 mg Iron (1x per day) AND 2122-1685 mg calcium citrate daily taken in divided [...] (with skin), brown rice, quinoa -for recipes: https://bariatricmealNet Power Technology.Wishdates/bar iatric-recipes/ https://www.bariatricfusion.com/b logs/blog/tagged/bariatric-recipe s https://www.Maze[employer]olt [employer].com/food-n utrition/k65380631/5-wzbhhqj-vuku hc-ydbo-alkf-recipes/ https://www.bariatricFrengoalcoach.co m https://www.Boursorama Bankeating.Wishdates/ https://www.Gravityation.org/co okbook/ Nutrition Monitoring & Evaluation: BMI < 60 Need for Follow up: 3 months, for annual. [phone] documented in this encounter [facility] 05-05-2024 Note HNO ID: [id number] Author: KARON MONSIVAIS RD Service: ? Author Type: Registered Dietitian Type: Progress Notes Filed: 05/05/2024 11:25 Note Text: [facility] Nutrition Therapy: Virtual Consult - Re-assessment I have communicated my name and active licensure. The patient?s identity and physical location were verified at the time of this visit. Either the patient or their legal territory service representative has been informed of the [...] 60 mg Iron (1x per day) AND 9544-6713 mg calcium citrate daily taken in divided [...] (with skin), brown rice, quinoa -for recipes: https://bariatricmealNet [employer] Technology.Wishdates/bar iatric-recipes/ https://www.bariatricfusion.com/b logs/blog/tagged/bariatric-recipe s https://www.M[employer].com/food-n utrition/k64934154/1-ayjimgc-fwxb rq-xitt-zhew-r ecipes/ https://www.bariatricmealcoach.co m https://www.bariatriceating.com/ https://www.treofoundation.org/co okbook/ Nutrition Monitoring AND Evaluation: BMI < 60 Need for Follow up: 3 months, for annual. [phone] PROGRESS: Interval History: Patient presents for follow up MNT 9 months post-op BPD with DS. Since last assessment Patient reports pursuing medical weight management with Dr. Nieto. Currently waiting on insurance approval for Fabienne. Net weight loss 33 pounds ( 401 lbs initial) 8% TWL Pre-surgery weight: 388 pounds 1 pounds weight loss since last assessment (369 lbs) Patient notes desired weight of <300 pounds Diet recall indicates consistent meal pattern with no missed meals. Meals are balanced, however some inconsistent carb intake. Following Phase 5 diet appropriately. 0610-9507 calories/day - insufficient 110-120 protein intake/day - meeting needs 120 oz+ fluid intake/day - meeting needs Taking all vitamin/minerals. Labs reviewed, note Zinc deficiency and elevated Thiamin Resting Metabolic Rate:2335 Energy needs for weight loss 6020-0572 (10-15 harpreet/kg current weight) Protein needs: 96-128 grams protein per day (1.5 - 2.0 g/kg IBW kg) Exercise - consistent but likely falls below recommendations Nutrition Intervention 11/02/23: 1. Continue to take all recommended vitamin/minerals -ProCare DS/LEIDA Bariatric multivitamin with 60 mg Iron (1x per day) AND 2396-9991 mg calcium citrate daily taken in divided [...] (Premier) OR eggs and sausage Snack - hungarian yogurt Lunch - ham/turkey and cheese roll up Snack - hungarian yogurt Dinner - chicken and green beans, [...] days and PT (more content not included)... [facility] 05-05-2024 History of Present illness Narrative [facility] Nutrition Therapy: Virtual Consult - Re-assessment I have communicated my name and active licensure. The patient s identity and physical location were verified at the time of this visit. Either the patient or their legal territory service representative has been informed of the [...] 60 mg Iron (1x per day) AND 8802-3989 mg calcium citrate daily taken in divided [...] (with skin), brown rice, quinoa -for recipes: https://bariatricmealNet Power Technology.com/bar iatric-recipes/ https://www.bariatricfusion.com/b logs/blog/tagged/bariatric-recipe s https://www.Maze[employer]olt [employer].com/food-n utrition/s31249816/8-wzanebl-vgmn ug-qwsb-tjlp-recipes/ https://www.bariatricmealcoach.co m https://www.bariatriceating.com/ https://www.treofoundation.org/co okbook/ Nutrition Monitoring & Evaluation: BMI < 60 Need for Follow up: 3 months, for annual. [phone] PROGRESS: Interval History: Patient presents for follow up MNT 9 months post-op BPD with DS. Since last assessment Patient reports pursuing medical weight management with Dr. Nieto. Currently waiting on insurance approval for [email or web address]. Net weight loss 33 pounds ( 401 lbs initial) 8% TWL Pre-surgery weight: 388 pounds 1 pounds weight loss since last assessment (369 lbs) Patient notes desired weight of <300 pounds Diet recall indicates consistent meal pattern with no missed meals. Meals are balanced, however some inconsistent carb intake. Following Phase 5 diet appropriately. 4847-8800 calories/day - insufficient 110-120 protein intake/day - meeting needs 120 oz+ fluid intake/day - meeting needs Taking all vitamin/minerals. Labs reviewed, note Zinc deficiency and elevated Thiamin Resting Metabolic Rate:2335 Energy needs for weight loss 3442-5657 (10-15 harpreet/kg current weight) Protein needs: 96-128 grams protein per day (1.5 - 2.0 g/kg IBW kg) Exercise - consistent but likely falls below recommendations Nutrition Intervention 11/02/23: 1. Continue to take all recommended vitamin/minerals -ProCare DS/LEIDA Bariatric multivitamin with 60 mg Iron (1x per day) AND 8842-4993 mg calcium citrate daily taken in divided [...] (Premier) OR eggs and sausage Snack - hungarian yogurt Lunch - ham/turkey and cheese roll up Snack - hungarian yogurt Dinner - chicken and green beans, [...] AM PAGER: N/A documented in this encounter [facility] 04-27-2024 History of Present illness Narrative [...] and fell onto the knee. Went to [facility] ER and had xrays, which were negative [...] shooting pain deep in the joint. [place]: [facility] ER/XR right knee 04/06/24, motrin, ice, depo medrol injection 04/13/24 LT Knee Pt states she fell about 4 weeks ago and fell onto the right knee (she believes on 03/30/24). States she fell forward landing on both knees onto carpet and she fell hard. She is not sure what happened, she states she just stood up and fell onto the knee. Went to [facility] ER and had xrays, which were negative [...] f/u s/p MRI to be done at [facility] in [place] In regards to the left knee Discussion of options, pt notes she would like an injection, side effects of bleeding and infection discussed, would like to proceed with the injection, using aspectic technique 40 mg of depo medrol was injected into the left lateral knee, pt tolerated well, bandaid applied, may do activities as tolerated documented in this encounter [facility] 04-19-2024 History of Present illness Narrative Physical [...] discectomies. Has not been back to neurosurgeon. Dr would like her to try Pain Management and PT before deciding on surgery. Pt states she has been to Pain Management before but always seemed to make pain worse. Precautions: [place] Subjective: Pt states she had injection in [...] to be instructed in home exercise program. Nursing Home Goals: To be met in 10 weeks [...] sign below. Date: documented in this encounter [facility] 04-19-2024 History of Present illness Narrative I have communicated my name and active licensure. The patient's identity and physical location were verified at the time of this visit. Either the patient or their legal territory service representative has been informed of the [...] loss: 8.985 kg (19 lb 13 oz) [place] weight: 66.1 kg (145 lb 10.6 oz) [...] which included preparing to see the patient, [id number] patient care, obtaining and/or reviewing separately obtained history, counseling and educating the patient/family/caregiver, ordering medications, tests, or procedures, and care coordination (not separately reported). (OTHER): -11/03/23 OV BMI/Nadege CARDIAC: -Procedure Date : Mar 10 2023 EKG Diagnosis: NORMAL SINUS RHYTHM NORMAL ECG documented in this encounter [facility] 04-19-2024 Note HNO ID: [id number] Author: AMINA NIETO MD Service: ? Author Type: Physician Type: Progress Notes Filed: 05/13/2024 13:33 Note Text: I have communicated my name and active licensure. The patient's identity and physical location were verified at the time of this visit. Either the patient or their legal territory service representative has been informed of the [...] loss: 8.985 kg (19 lb 13 oz) [place] weight: 66.1 kg (145 lb 10.6 oz) [...] AND Minerals: Bariatric MVI one a day Procare [...] have Prediabetes-will tr (more content not included)... [facility] 04-13-2024 History of Present illness Narrative [...] and fell onto the knee. Went to [facility] ER and had xrays, which were negative [...] shooting pain deep in the joint. [place]: [facility] ER/XR right knee 04/06/24, jefe lizama Objective Right Knee Exam Tests Drawer: Anterior [...] normal Posterior drawer: normal I reviewed the [facility] er note from 04/06/24, pt fell on 04/02/24 and had been having pain since, dispensed a knee brace and also had xrays done in the er. I reviewed the xrays of the right knee done on 04/06/24 at [facility] reveals Tricompartment mild degenerative knee arthritis. L [...] in 2 weeks. documented in this encounter [facility] 03-24-2024 History of Present illness Narrative Physical Therapy Treatment Visit Patient Name: Susi Ortiz Today's Date: 03/24/2024 Encounter Diagnoses Name Primary? Low back pain, unspecified back pain laterality, unspecified chronicity, unspecified whether sciatica present Yes Visit number: 3 Timed Code Treatment Minutes: 26 minutes Total Treatment Time: 26 minutes Time In: 1300 Time Out: 1331 History: Pt states she has had back [...] always seemed to make pain worse. Precautions: [place] Subjective: Pt states pain today rates about 2/10. Pain is more central low back. Pain: 0-10/10 Objective: PT Evaluation (03/04/2024) LUMBAR SPINE AROM: [...] needed. SB manual lumbar traction Therapeutic Exercise: (26 minutes) Strength, Endurance, Flexibility, ROM, HEP, Neural Mobilization, Power, and Core Stability as needed. Pt instructed in and performed HEP with good understanding. Discussed importance of core stabilization ex for improved lumbar stability. Therapeutic Activity: Exercises to improve dynamic activities, functional tasks, functional mobility to return to prior activity level as needed. Neuromuscular re-education: Balance Training, Muscle Facilitation, Dynamic Stability, Core Stabilization, and Blood Flow Restriction Training (BFRT) as needed. Modalities: Heat, Ice, Electrical Stimulation, Ultrasound, Cervical Mechanical Traction, Lumbar Mechanical Traction, Iontophoresis, and Fluidotherapy as needed. Assessment: Pt has completed 3 PT sessions for low back pain. Discussed possible trial of aquatic ex if pain continues with land based therapy; pt voiced good understanding and improved michele to exercises this date. Will continue to progress as pt tolerates. Outcome Measure: Back Index: 34/50 Rehab Diagnosis: low back pain, limited trunk ROM and mobility, decrease core and LE strength Short Term Goal: To be met in 2 weeks Goal 1: Pt to be instructed in home exercise program. Nursing Home Goals: To be met in 10 weeks [...] sign below. Date: documented in this encounter [facility] 03-07-2024 History of Present illness Narrative Reason for Appointment: Patient ID: Susi Ortiz is a 38 y.o. female who presents for right side pelvic pain Patient presents today for Consult appointment. MEDICATIONS Current Outpatient Medications Medication Instructions ARIPiprazole (ABILIFY) 15 mg, Oral, Nightly biotin 10 mg, Oral busPIRone (BUSPAR) 15 mg, Oral, 2 times daily calcium carbonate (OS-HARPREET) 1,250 mg, Oral, 2 times daily calcium citrate 500 mg, Oral, Daily cetirizine (ZYRTEC) 10 mg, Oral, Daily cholecalciferol (Vitamin D-3) 1.25 MG (56263 UT) capsule DULoxetine (CYMBALTA) 60 mg, Oral, Daily eletriptan (RELPAX) 20 mg, Oral, Once as needed, May repeat in 2 hours if unresolved. Do not exceed 80 mg in 24 hours.
Max 3 days a week esomeprazole (NexIUM) [address] capsule 1 capsule, Every 24 hours famotidine (Pepcid) 20 MG tablet TAKE 1 TABLET BY MOUTH AT BEDTIME ONCE DAILY NEEDED ferrous sulfate 325 mg, Oral, Daily RT hydroCHLOROthiazide (HYDRODiuril) 12.5 MG tablet TAKE 1 TABLET BY MOUTH IN THE MORNING EVERY DAY HYDROcodone-acetaminophen ([place]) 5-325 MG tablet 1 tablet, Oral, Every 6 hours PRN hydrOXYzine pamoate (Vistaril) 50 MG capsule TAKE 1 CAPSULE BY MOUTH AT BEDTIME NEEDED oral at bed time as needed for 90 days lamoTRIgine (LaMICtal) 100 MG tablet 1 tablet, Oral, Every morning Levonorgestrel (Mirena, 52 MG,) 20 MCG/DAY intrauterine device 1 each, Intrauterine loratadine (Claritin) 10 MG tablet TAKE 1 TABLET BY MOUTH DAILY Oral for 30 metFORMIN XR (GLUCOPHAGE-XR) 500 mg, Oral, Daily with evening meal montelukast (Singulair) 10 MG tablet Every 24 hours Multiple Vitamin (Multi Vitamin) tablet Every 24 hours Multiple Vitamins-Minerals (Bariatric Multivitamins/Iron) capsule Oral omeprazole (PriLOSEC) [address] capsule Every 24 hours ondansetron ODT (Zofran-ODT) 4 MG disintegrating tablet OXcarbazepine (Trileptal) 300 MG tablet TAKE 1 & 1/2 (ONE AND ONE-HALF) TABLETS BY MOUTH DAILY AT BEDTIME prazosin (Minipress) 2 MG capsule Every 24 hours propranolol (Inderal) 60 MG tablet Every 12 hours rizatriptan SOFTWARE SALES EXECUTIVE (Maxalt-SOFTWARE SALES EXECUTIVE) 10 MG disintegrating tablet DISSOLVE 1 TABLET BY MOUTH AT ONSET OF MIGRAINE DAILY; CAN REPEAT IN 2 (TWO) HOURS; MAX 2 (TWO) TABLETS IN 24 HOURS AND 3 (THREE) TIMES PER WEEK; MUST LAST 30 DAYS SUMAtriptan (Imitrex) 50 MG tablet Zinc Acetate 25 mg, Oral, Daily RT ALLERGIES Allergies Allergen Reactions Amoxicillin-Pot Clavulanate Diarrhea Other Reaction(s): GI Disturbance, Other (See Comments) Tramadol Hives and Itching Other Reaction(s): Unknown Other Reaction(s): Not available Cephalexin Itching and Rash Other Reaction(s): Unknown Penicillins Hives and Rash Other Reaction(s): Unknown Other Reaction(s): Not available Wound Dressing Adhesive Rash Other Reaction(s): Unknown OK TO USE PAPER TAPE Other Reaction(s): Not available Other Reaction(s): Rash Comments: skin peeling. PROBLEMS Active Ambulatory Problems Diagnosis Date Noted Arthralgia of both knees 01/17/2017 Bipolar depression ([facility]) 10/04/2015 DDD (degenerative disc disease), lumbar 10/04/2015 GERD without esophagitis 10/04/2015 Hypokalemia 08/07/2023 Hypophosphatemia ([facility]) 08/07/2023 Morbid obesity ([facility]) 06/10/2017 TONEY on CPAP 10/04/2015 Chronic midline low back pain without sciatica 01/17/2017 S/P bariatric surgery 08/04/2023 Insomnia 11/09/2023 Migraine ([facility]) 11/09/2023 Myalgia 11/09/2023 Sleep apnea 11/09/2023 Muscle spasm 11/09/2023 Tension type headache 11/09/2023 TONEY (obstructive sleep apnea) 11/09/2023 Chronic migraine without aura without status migrainosus, not intractable (CMS/HCC) 11/09/2023 Resolved Ambulatory Problems Diagnosis Date Noted No Resolved Ambulatory Problems Past Medical History: Diagnosis Date Anxiety Bursitis of shoulder Chronic back pain CTS (carpal tunnel syndrome) Depression (CMS/HCC) Eczema Fracture of wrist GERD (gastroesophageal reflux disease) Hypertension (CMS/HCC) Lumbosacral disc disease Migraines (CMS/HCC) Obesity Pituitary tumor RLS (restless legs syndrome) Seborrheic dermatitis HISTORY PAST MEDICAL HISTORY SOCIAL HISTORY Past Medical History: Diagnosis Date Anxiety Bipolar depression (CMS/HCC) Bursitis of shoulder Chronic back pain (herniated disc) CTS (carpal tunnel syndrome) Depression (CMS/HCC) Eczema Fracture of wrist GERD (gastroesophageal reflux disease) Hypertension (CMS/HCC) Lumbosacral disc disease Migraines (CMS/HCC) Obesity Pituitary tumor (3 mm microadenoma) RLS (restless legs syndrome) Seborrheic dermatitis Sleep apnea Social History Tobacco Use Smoking status: Former Current packs/day: 0.00 Average packs/day: 0.5 packs/day for 10.0 years (5.0 ttl pk-yrs) Types: Cigarettes Start date: 06/29/2003 Quit date: 06/29/2013 Years since quittin.6 Smokeless tobacco: Never Vaping Use Vaping status: Every Day Substance Use Topics Alcohol use: Not Currently Comment: caffeine: 2-3 cups per day Drug use: Never FAMILY HISTORY Family History Problem Relation Name Age of Onset Thyroid disease Mother Lymphoma Father [place] Hypertension Father [place] Diabetes Father [place] Cancer Father [place] SURGICAL HISTORY Past Surgical History: Procedure Laterality Date BACK SURGERY 2011, 2013 BARIATRIC SURGERY gastric sleeve BARIATRIC SURGERY 08/04/2023 duodenal switch CARPAL TUNNEL RELEASE 2009, 2010 CARPAL TUNNEL RELEASE Left CARPAL TUNNEL RELEASE Right CHOLECYSTECTOMY GALL BLADDER 2008 LAPAROSCOPY DIAGNOSTIC / BIOPSY / ASPIRATION / LYSIS 01/30/2020 LUMBAR DISCECTOMY OVARIAN CYST REMOVAL Right SPLENECTOMY, TOTAL TONSILLECTOMY ULNAR NERVE REPAIR Left 11/04/2023 Dr. Jefferson/ ulnar nerve decompression ULNAR NERVE TRANSPOSITION Right 12/02/2023 Dr. Jefferson REVIEW OF SYSTEMS Review of Systems: Review of Systems All other systems reviewed and are negative. OBJECTIVE Objective: Physical Exam Constitutional: Appearance: Normal appearance. She is well-developed. Cardiovascular: Rate and Rhythm: Normal rate and regular rhythm. Pulmonary: Effort: Pulmonary effort is normal. Breath sounds: Normal breath sounds. Abdominal: General: Bowel sounds are normal. There is no distension. Palpations: Abdomen is soft. Tenderness: There is no abdominal tenderness. There is no guarding or rebound. Musculoskeletal: General: No swelling. Normal range of motion. Right lower leg: No edema. Left lower leg: No edema. Neurological: Mental Status: She is alert and oriented to person, place, and time. Skin: General: Skin is warm and dry. Psychiatric: Mood and Affect: Mood normal. Behavior: Behavior normal. Vitals and nursing note reviewed. Exam conducted with a glycerine plant operator present. Vitals: Estimated body mass index is 69.83 kg/m as calculated from the following: Height as of this encounter: 5' 4 . Weight as of this encounter: 406 lb 12.8 oz. BP: 120/70 No LMP recorded. Patient has had an implant. ASSESSMENT & PLAN ICD-10-CM 1. Pelvic pain R10.2 US PELVIS-TRANSVAG IF INDICATED HYDROcodone-acetaminophen ([place]) 5-325 MG tablet 2. Right ovarian cyst N83.201 US PELVIS-TRANSVAG IF INDICATED HYDROcodone-acetaminophen ([place]) 5-325 MG tablet Patient presents for follow up ER appointment pelvic pain and right ovarian cyst. Discussed follow up with patient and patient to have repeat US and given scripts for [place]. Patient to setup annual well women appointment in 4 weeks. Documented by Dennise Smith LPN on behalf of: Jamie Harley DO documented in this encounter [facility] 03-04-2024 History of Present illness Narrative Physical Therapy Evaluation Visit Patient Name: Susi Ortiz Today's Date: 03/04/2024 Encounter Diagnoses Name Primary? Low back pain, unspecified back pain laterality, unspecified chronicity, unspecified whether sciatica present Yes Visit number: 1 Timed Code Treatment Minutes: 58 minutes Total Treatment Time: 58 minutes Time In: 1230 Time Out: 1328 History: Pt states she has had back [...] always seemed to make pain worse. Precautions: [place] Subjective: mostly lumbar spine but does radiate out to sides and down a little bit, no c/o pain in buttock or LE's. Pain: 0-10/10 Objective: PT Evaluation (03/04/2024) LUMBAR SPINE AROM: [...] on Eval Findings and POC Manual Therapy: Passive ROM, Joint mobilization, Soft Tissue Mobilization, Myofascial Release, Muscle Energy Technique, Neural Mobilization, Myofascial Cupping, Dry Needling, IASTM, and Scar mobilization as needed. Therapeutic Exercise: (25 minutes) Strength, Endurance, Flexibility, ROM, HEP, Neural Mobilization, Power, and Core Stability as needed. Pt instructed in and performed HEP with good understanding. Discussed importance of core stabilization ex for improved lumbar stability. Therapeutic Activity: Exercises to improve dynamic activities, functional tasks, functional mobility to return to prior activity level as needed. Neuromuscular re-education: Balance Training, Muscle Facilitation, Dynamic Stability, Core Stabilization, and Blood Flow Restriction Training (BFRT) as needed. Modalities: Heat, Ice, Electrical Stimulation, Ultrasound, Cervical Mechanical Traction, Lumbar Mechanical Traction, Iontophoresis, and Fluidotherapy as needed. Assessment: Pt is 38 y/o female with complaints of chronic low back pain. Pt with limited ROM of lumbar region. Decrease core and LE strength; will benefit from further PT. Outcome Measure: Back Index: 34/50 Rehab Diagnosis: low back pain, limited trunk ROM and mobility, decrease core and LE strength Short Term Goal: To be met in 2 weeks Goal 1: Pt to be instructed in home exercise program. Licensed Sales Assistant Goals: To be met in 10 weeks [...] sign below. Date: documented in this encounter [facility] 11-03-2023 History of Present illness Narrative I have communicated my name and active licensure. The patient's identity and physical location were verified at the time of this visit. Either the patient or their legal territory service representative has been informed of the [...] loss: 8.623 kg (19 lb 0.2 oz) [place] weight: 66.1 kg (145 lb 10.6 oz) Excess weight: 109.9 kg (242 lb 5.6 oz) % of excess body weight lost: 8.623 kg (19 lb 0.2 oz) (7.84% of excess weight loss) COMPLICATIONS SINCE LAST VISIT?: NONE DIET INTAKE: tolerates Phase V diet See recent Class C Driver appointment -B: protein shake, -snack: Oikos bkft [...] which included preparing to see the patient, [id number] patient care, obtaining and/or reviewing separately obtained history, counseling and educating the patient/family/caregiver, ordering medications, tests, or procedures, and care coordination (not separately reported). (OTHER): -11/02/23 OV BMI/M. Nathanael -11/02/23 OV BMI/Nutrition/A. Sayra CARDIAC: -Procedure Date : Mar 10 2023 EKG Diagnosis: NORMAL SINUS RHYTHM NORMAL ECG documented in this encounter [facility] 11-03-2023 Note HNO ID: [id number] Author: AMINA NIETO MD Service: ? Author Type: Physician Type: Progress Notes Filed: 11/04/2023 16:46 Note Text: I have communicated my name and active licensure. The patient's identity and physical location were verified at the time of this visit. Either the patient or their legal territory service representative has been informed of the [...] loss: 8.623 kg (19 lb 0.2 oz) [place] weight: 66.1 kg (145 lb 10.6 oz) Excess weight: 109.9 kg (242 lb 5.6 oz) % of excess body weight lost: 8.623 kg (19 lb 0.2 oz) (7.84% of excess weight loss) COMPLICATIONS SINCE LAST VISIT?: NONE DIET INTAKE: tolerates Phase V diet See recent Class C Driver appointment -B: protein shake, -snack: [place]ikos bkft [...] Today: See E (more content not included)... [facility] 11-02-2023 Instructions Jayshree Huffman APRN.CNP - 11/02/2023 4:43 PM EDT Please make a follow up with Dr Nieto for help with further weight loss. You can call the [place] [phone] to schedule. Let me know if you have trouble getting an appointment documented in this encounter [facility] 11-02-2023 Note HNO ID: [id number] Author: JAYSHREE HUFFMAN APRN.CNP Service: ? Author Type: Nurse Practitioner Type: Progress Notes Filed: 11/02/2023 16:45 Note Text: BMI SURGERY Post Op Clinic Note - virtual visit I have communicated my name and active licensure. The patient's identity and physical location were verified at the time of this visit. Either the patient or their legal territory service representative has been informed of the [...] loss: 8.623 kg (19 lb 0.2 oz) [place] weight: 66.1 kg (145 lb 10.6 oz) [...] deli black forest 3 slices and cheese (burundian 2 slices) Snack yesterday - 000 yogurt [...] tobacco given increased (more content not included)... [facility] 11-02-2023 History of Present illness Narrative BMI SURGERY Post Op Clinic Note - virtual visit I have communicated my name and active licensure. The patient's identity and physical location were verified at the time of this visit. Either the patient or their legal territory service representative has been informed of the [...] loss: 8.623 kg (19 lb 0.2 oz) [place] weight: 66.1 kg (145 lb 10.6 oz) [...] deli [place] 3 slices and cheese (burundian 2 slices) Snack yesterday - 000 yogurt [...] Follow up with OM and BRENDON Huffman APRN.BRAND DESIGNER Medical Decision Making: Problems: Moderate: 1+ chronic illnesses with change and 2+ stable chronic illnesses Data: Unique test result(s) reviewed: 3+ Risk: Low: Low risk from testing/treatment Medical Decision Making Level: 4 - Moderate documented in this encounter [facility] 11-02-[address] - 11/02/2023 10:34 AM EDT Reviewed nutrition principles of: 1. Continue to take all recommended vitamin/minerals -ProCare DS/LEIDA Bariatric multivitamin with 60 mg Iron (1x per day) AND 4400-9225 mg calcium citrate daily taken in divided [...] Follow up: 6 months post op, scheduling [phone] documented in this encounter [facility] 11-02-2023 History of Present illness Narrative I have communicated my name and active licensure. The patient's identity and physical location were verified at the time of this visit. Either the patient or their legal territory service representative has been informed of the [...] Rate: 2344 Energy needs for weight loss 9329-5965 kcal/day (10-15 harpreet/kg current weight) Protein needs: 96-128 grams protein per day (1.2 g/kg IBW kg) Reviewed nutrition principles of: 1. Continue to take all recommended vitamin/minerals -ProCare DS/LEIDA Bariatric multivitamin with 60 mg Iron (1x per day) AND 0235-7469 mg calcium citrate daily taken in divided [...] Follow up: 6 months post op, scheduling [phone] Appointment Start Time: 9:45am Appointment End Time: 10:20am Time Spent on Consult: 35 minutes - Group Mary Colbert RD documented in this encounter [facility] 11-02-2023 Note HNO ID: [id number] Author: MARY COLBERT RD Service: ? Author Type: Registered Dietitian Type: Progress Notes Filed: 11/02/2023 10:34 Note Text: I have communicated my name and active licensure. The patient's identity and physical location were verified at the time of this visit. Either the patient or their legal territory service representative has been informed of the [...] Rate: 2344 Energy needs for weight loss 6692-5725 kcal/day (10-15 harpreet/kg current weight) Protein needs: 96-128 grams protein per day (1.2 g/kg IBW kg) Reviewed nutrition principles of: 1. Continue to take all recommended vitamin/minerals -ProCare DS/LEIDA Bariatric multivitamin with 60 mg Iron (1x per day) AND 3081-8820 mg calcium citrate daily taken in divided [...] Follow up: 6 months post op, scheduling [phone] Appointment Start Time: 9:45am Appointment End Time: 10:20am Time Spent on Consult: 35 minutes - Group Mary Colbert RD [facility] 09-07-2023 Note HNO ID: [id number] Author: JAYSHREE HUFFMAN APRN.BRAND DESIGNER Service: ? Author Type: Nurse Practitioner Type: [...] loss: 6.128 kg (13 lb 8.2 oz) [place] weight: 66.1 kg (145 lb 10.6 oz) [...] FOLLOW UP: as scheduled Jayshree Huffman APRN.KATTY [facility] 09-07-2023 History of Present illness Narrative [...] loss: 6.128 kg (13 lb 8.2 oz) [place] weight: 66.1 kg (145 lb 10.6 oz) [...] Jayshree Huffman APRN.CNP documented in this encounter [facility] 08-31-[address] - 08/31/2023 12:14 PM EST Reviewed nutrition principles of: 1. Continue to take all recommended vitamin/minerals - ProCare DS/LEIDA Bariatric multivitamin with 60 mg Iron (1x per day) AND 4494-5203 mg calcium citrate daily 2. Protein goal: [...] try softer vegetables such as broccoli florets, [place] lettuce, red-leaf lettuce or [place] lettuce. Remember to chew vegetables thoroughly (chew 25 times) and swallow only when chewing has made it into a mushy pureed consistency. If you have trouble with gas, avoid eating gas-producing vegetables such as onions, cauliflower, garlic, scallions, leeks, [place] sprouts and cabbage. Avoid starchy vegetables such as potatoes (sweet and white), yams, yucca, plantain and corn at this time. Nutrition Monitoring & Evaluation: BMI < 60 Criteria: weight check and patient update Need for Follow up: 3 months post op, scheduling [phone] documented in this encounter [facility] 08-31-2023 Note HNO ID: [id number] Author: CHRISTOPHER SANTIAGO, PhD Service: ? Author Type: Psychologist Type: Progress Notes Filed: 08/31/2023 11:36 Note Text: [facility] Cost Center: [facility] Billing code: Gautam CPT Code: 09469 GROUP PSYCHOTHERAPY 37948 Brief Emotional/Behavioral Assessment with scoring/documentation (3 units) [...] a copy of the consent form on [employer]. The patient consented to a virtual visit and their location was confirmed. I have communicated my name and active licensure. The patient's identity and physical location were verified at the time of this visit. Either the patient or their legal territory service representative has been informed of the [...] PROMIS Global Health (more content not included)... [facility] 08-31-2023 History of Present illness Narrative I have communicated my name and active licensure. The patient's identity and physical location were verified at the time of this visit. Either the patient or their legal territory service representative has been informed of the [...] Rate: 2308 Energy needs for weight loss 1260-0239 kcal/day (10-15 harpreet/kg current weight) Protein needs: 96-128 grams protein per day (1.2 g/kg IBW kg) Reviewed nutrition principles of: 1. Continue to take all recommended vitamin/minerals - ProCare DS/LEIDA Bariatric multivitamin with 60 mg Iron (1x per day) AND 1403-0125 mg calcium citrate daily 2. Protein goal: [...] broccoli florets, Claudio lettuce, red-leaf lettuce or [place] lettuce. Remember to chew vegetables thoroughly (chew 25 times) and swallow only when chewing has made it into a mushy pureed consistency. If you have trouble with gas, avoid eating gas-producing vegetables such as onions, cauliflower, garlic, scallions, leeks, [place] sprouts and cabbage. Avoid starchy vegetables such as potatoes (sweet and white), yams, yucca, plantain and corn at this time. Nutrition Monitoring & Evaluation: BMI < 60 Criteria: weight check and patient update Need for Follow up: 3 months post op, scheduling [phone] Appointment Start Time: 9:45am Appointment End Time: 10:35am Time Spent on Consult: 50 minutes - Group Mary Colbert RD documented in this encounter [facility] 08-31-2023 Note HNO ID: [id number] Author: MARY COLBERT RD Service: ? Author Type: Registered Dietitian Type: Progress Notes Filed: 08/31/2023 12:14 Note Text: I have communicated my name and active licensure. The patient's identity and physical location were verified at the time of this visit. Either the patient or their legal territory service representative has been informed of the [...] Rate: 2308 Energy needs for weight loss 9775-4722 kcal/day (10-15 harpreet/kg current weight) Protein needs: 96-128 grams protein per day (1.2 g/kg IBW kg) Reviewed nutrition principles of: 1. Continue to take all recommended vitamin/minerals - ProCare DS/LEIDA Bariatric multivitamin with 60 mg Iron (1x per day) AND 4079-0802 mg calcium citrate daily 2. Protein goal: [...] it is recommended (more content not included)... [facility] 08-19-2023 Instructions Karon Monsivais, BRENDON - 08/19/2023 12:18 PM EST 1. Continue vitamins Research post-op vitamins for LEIDA/DS procedure: - Bariatric Fusion ADEK Complete Capsule (3x per day) AND 0544-3462 mg calcium citrate OR - Bariatric Advantage High ADEK Chewable Multivitamin (2x per day) AND 4725-3202 mg calcium citrate OR -Celebrate multi-ADEK chewable (3x per day) AND 0733-7486 mg calcium citrate AND 1 chewable Iron 45-60 mg AND OR -ProCare DS/LEIDA Bariatric multivitamin with 60 mg Iron (1x per day) AND 4337-1955 mg calcium citrate daily 2. Protein goal: [...] at 1 month) The Bariatric & Metabolic [facility] at [facility] has 2 virtual support group meetings: This is the [employer] link with meeting number that will be used for all of the THURSDAY virtual support groups this year, on the Thursday of each month 5:30-6:30PM Join from the meeting link [email or web address] Join by meeting number Meeting number (access code): [phone] Meeting password: [email or web address] The schedule with dates, times, topics, and facilitators can be found here: [email or web address] [email or web address] This is the [employer] link with meeting number that will be used for the Open Discussion ( Food for Thought ) support group on the Thursday of each month 5:30-6:30PM Join from the meeting link [email or web address] Join by meeting number Meeting number (access code): [phone] Meeting password: [email or web address] Hope to see you there! Nutrition Monitoring & Evaluation: Advance diet to phase 3 by next visit Criteria: patient recall Need for Follow up: 1 month post op documented in this encounter [facility] 08-19-2023 Note HNO ID: [id number] Author: KARON MONSIVAIS RD Service: ? Author [...] visit. Either the patient or their legal territory service representative has been informed of the [...] yet taking recommended vitamin/minerals, however plans for [employer] ADEK + 2000 mg calcium citrate. Exercise includes walking most days. Labs not available to evaluate. Reviewed nutrition principles of: 1. Continue vitamins Research post-op vitamins for LEIDA/DS procedure: - Bariatric Fusion ADEK Complete Capsule (3x per day) AND 2983-4294 mg calcium citrate OR - Bariatric Advantage High ADEK Chewable Multivitamin (2x per day) AND 5757-7677 mg calcium citrate OR -Celebrate multi-ADEK chewable (3x per day) AND 1382-9996 mg calcium citrate AND 1 chewable Iron 45-60 mg AND OR -ProCare DS/LEIDA Bariatric multivitamin with 60 mg Iron (1x per day) AND 8280-4583 mg calcium citrate daily 2. Protein goal: [...] at 1 month) The Bariatric AND Metabolic [facility] at [facility] has 2 virtual support group meetings: This is the [employer] link with meeting number that will be used for all of the THURSDAY virtual support groups this year, on the Thursday of each month 5:30-6:30PM Join from the meeting link [email or web address] Join by meeting number Meeting number (access code): [phone] Meeting password: [email or web address] The schedule with dates, times, topics, and facilitators can be found here: [email or web address] [email or web address] etienne This is the [employer] link with meeting number that will be used for the Open Discussion ( Food for Thought ) support group on the First Thursday of each month 5:30-6:30PM Join from the meeting link [email or web address] Join by meeting number Meeting number (access code): [phone] Meeting password: [email or web address] Hope to see you there! Nutrition Monitoring AND Evaluation: Advance diet to phase 3 by next visit Criteria: patient recall Need for Follow up: 1 month (more content not included)... [facility] 08-19-2023 History of Present illness Narrative [...] visit. Either the patient or their legal territory service representative has been informed of the [...] yet taking recommended vitamin/minerals, however plans for [employer] ADEK + 2000 mg calcium citrate. Exercise includes walking most days. Labs not available to evaluate. Reviewed nutrition principles of: 1. Continue vitamins Research post-op vitamins for LEIDA/DS procedure: - Bariatric Fusion ADEK Complete Capsule (3x per day) AND 4840-2132 mg calcium citrate OR - Bariatric Advantage High ADEK Chewable Multivitamin (2x per day) AND 5092-2391 mg calcium citrate OR -Celebrate multi-ADEK chewable (3x per day) AND 2604-4189 mg calcium citrate AND 1 chewable Iron 45-60 mg AND OR -ProCare DS/LEIDA Bariatric multivitamin with 60 mg Iron (1x per day) AND 2371-4530 mg calcium citrate daily 2. Protein goal: [...] at 1 month) The Bariatric & Metabolic [facility] at [facility] has 2 virtual support group meetings: This is the [employer] link with meeting number that will be used for all of the THURSDAY virtual support groups this year, on the Third Thursday of each month 5:30-6:30PM Join from the meeting link [email or web address] Join by meeting number Meeting number (access code): [phone] Meeting password: [facility] The schedule with dates, times, topics, and facilitators can be found here: [email or web address] [email or web address] [email or web address]-surgery This is the [employer] link with meeting number that will be used for the Open Discussion ( Food for Thought ) support group on the Thursday of each month 5:30-6:30PM Join from the meeting link [email or web address] Join by meeting number Meeting number (access code): [phone] Meeting password: [facility] Hope to see you there! Nutrition Monitoring & Evaluation: Advance diet to phase 3 by next visit Criteria: patient recall Need for Follow up: 1 month post op Appointment Start Time: 11:45 AM Appointment End Time: 12:15 PM Time Spent on Consult: 30 minutes - Group Karon Monsivais RD documented in this encounter [facility] 08-17-2023 Note HNO ID: [id number] Author: JAYSHREE HUFFMAN APRN.BRAND DESIGNER Service: ? Author Type: Nurse Practitioner Type: Progress Notes Filed: 08/17/2023 10:41 Note Text: Assessment BMI Surgical PostOp Clinic Note August 17, 2023 INTERVAL HISTORY: Susijorge luis Ortiz is here for 13 day post [...] loss: 8.2 kg (18 lb 1.2 oz) [place] weight: 66.1 kg (145 lb 10.6 oz) [...] refilled zofran Activity: (more content not included)... [facility] 08-17-2023 History of Present illness Narrative [...] loss: 8.2 kg (18 lb 1.2 oz) [place] weight: 66.1 kg (145 lb 10.6 oz) [...] Jayshree Huffman APRN.KATTY documented in this encounter [facility] 08-13-2023 Miscellaneous Notes BMI SPECIALTY [...] appt. Reminded patient of how to reach [facility] or their surgeons office. Patient reminded to seek medical attention if they develop chest pain, a sudden onset of shortness of breath or persistent pain in the calf of their legs - BEST TO ALWAYS present to [facility] hospital where you had your surgery Patient verbalized understanding of all advice and instructions given. Cynthia Peterson RN documented in this encounter [facility] 08-11-2023 Note HNO ID: [id number] Author: ?, ?, ? Service: ? Author Type: ? Type: Plan of Care Filed: 08/11/2023 17:07 Note Text: PHARMACY BEDSIDE DELIVERY SERVICE Patient Name: Susi Ortiz The marked outpatient medications were Filled at: [place] and delivered to the patient's bedside to [...] mg tablet Commonly known as: ABBEY López (Computer Education Professor) PAGER: [phone] August 11, 2023 5:05 PM [facility] 08-11-2023 Note HNO ID: [id number] Author: GLENIS NAZARIO MD Service: General Surgery Author Type: Resident Type: Progress Notes Filed: 08/11/2023 07:06 Note Text: General Surgery Progress Note Name: Susi Ortiz [facility] ASSESSMENT AND PLAN Susi Ortiz is a [...] Nazario MD General Surgery, Resident Please contact [place] [facility] Team pager for any questions [phone] during the daytime hours from 6a to 6p. Contact [phone] for nights and weekends Subjective -No acute [...] MG 2.0 1.8 1.8 Imaging None today [facility] 08-10-2023 Note HNO ID: [id number] Author: GLENIS NAZARIO MD Service: General Surgery Author Type: Resident Type: Progress Notes Filed: 08/10/2023 08:01 Note Text: General Surgery Progress Note Name: Susi Ortiz Bed: [address]-28 ASSESSMENT AND PLAN Susi Ortiz is [...] Nazario MD General Surgery, Resident Please contact [place] [facility] Team pager for any questions [phone] during the daytime hours from 6a to 6p. Contact [phone] for nights and weekends Subjective -No acute [...] 97 MG 1.8 1.8 Imaging None today [facility] 08-09-2023 Note HNO ID: [id number] Author: ANGELA COPELAND MD Service: General Surgery Author Type: Physician Type: Progress Notes Filed: 08/09/2023 09:41 Note Text: General Surgery Progress Note Name: Susi Ortiz Bed: -PK3C28/-NW1O-29 Date: August 08, 2023 ASSESSMENT AND PLAN [...] staff Patrica Anaya MD General Surgery, Resident [phone] Please contact [place] [facility] Team pager for any questions [phone] during the daytime hours from 6a to 6p. Contact [phone] for nights and weekends Subjective -No acute [...] incision. Tolerating some fluids. Philly Copeland MD [facility] 08-09-2023 Note HNO ID: [id number] Author: MAYANK VELARDE, RN Service: ? Author Type: Registered Nurse Type: Nursing Progress Note Filed: 08/09/2023 06:08 Note Text: 0608: page SROC pt potassium came back 3.5 this morning. [facility] 08-08-2023 Note HNO ID: [id number] Author: ANGELA COPELAND MD Service: General Surgery Author Type: Physician Type: Progress Notes Filed: 08/08/2023 09:33 Note Text: General Surgery Progress Note Name: Susi Ortiz Bed: [facility]3C28[facility] Date: August 08, 2023 ASSESSMENT AND PLAN [...] No gas yet today. Philly Copeland MD [facility] 08-07-2023 Note HNO ID: [id number] Author: MAICO MCCLAIN MD Service: General Surgery Author Type: Resident Type: Progress Notes Filed: 08/07/2023 09:26 Note Text: General Surgery Progress Note Name: Susi Oritz Bed: -PK3C28/FV-VD4C-38 Date: August 07, 2023 ASSESSMENT AND PLAN [...] Intake/Output Summary (Last 24 hours) at 08/07/2023 09 Last data filed at 08/07/2023 0834 Gross [...] this interval not displayed. Imaging None today [facility] 08-06-2023 Note HNO ID: [id number] Author: MAICO MCCLAIN MD Service: General Surgery Author Type: Resident Type: Progress Notes Filed: 08/06/2023 15:58 Note Text: General Surgery Progress Note Name: Susi Borjahip Bed: [address]/DA5O-76 Date: August 06, 2023 ASSESSMENT AND PLAN [...] 2.0 -- -- 1.8 Imaging None today [facility] 08-06-2023 Note HNO ID: [id number] Author: JOE GRANDA MD Service: General Surgery [...] of VTE prophylactic dosing Joe Granda MD [facility] 08-05-2023 Note HNO ID: [id number] Author: JOE GRANDA MD Service: General Surgery Author Type: Physician Type: Progress Notes Filed: 08/05/2023 15:58 Note Text: General Surgery Progress Note Name: Susi Ortiz Bed: [facility]3C28/[facility]16 Date: August 05, 2023 ASSESSMENT AND PLAN [...] Doing well POD 1. Joe Granda MD [facility] 08-05-2023 Note HNO ID: [id number] Author: ASHLEE CONNORS LSW Service: Care Management Author Type: Shop Blacksmith Type: Care Mgt Initial Assessment Filed: 08/05/2023 12:20 Note Text: CARE MANAGEMENT: ASSESSMENT AND DISCHARGE PLAN SERVICE DATE: August 05, 2023 SERVICE TIME: 12:17 PM PCP: Elizabet Simental DO, DO Primary Contact: Extended Emergency Contact Information Primary Emergency Contact: Evita Eckert [facility] Mobile Relation: Grandparent Secondary Emergency Contact: Ritchie Stephens 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 [facility] 08-04-2023 Note HNO ID: [id number] Author: AMRIIA AGUERO APRN.CRNA Service: ? Author Type: Nurse Contract Project Manager Type: Anesthesia Procedure Notes Filed: 08/04/2023 14:30 Note Text: ANESTHESIOLOGY PROCEDURE NOTE Gastric Tube General Information Procedure Start Time/Medication Administration: 08/04/2023 1:15 PM Patient location during procedure: OR Indication: gastric decompression Staffing Anesthesiologist: Amanda Alcantar DO SHEEP FARM MANAGER: Mariia Aguero APRN.SHEEP FARM MANAGER Performed by: CHEKO Procedure Details Type: Nasogastric tube Cortrak monitor used: No Size: 18 Fr cm Distance Advanced: 55 cm Securement: taped to the nose Placement Confirmation: KUB ordered/pending Successful Placement: yes Post-Procedure Details SIGNATURE: Mariia Aguero APRN.CRNA PATIENT NAME: Susi Borjahip DATE: August 04, 2023 TIME: 2:23 PM CSN: [id number] [facility] 08-04-2023 Note HNO ID: [id number] Author: JUDE LOPEZ DO Service: Anesthesiology Author Type: Anesthesiologist Type: Anesthesia Procedure Notes Filed: 08/04/2023 12:19 Note Text: ANESTHESIOLOGY PROCEDURE NOTE Epidural Block General Information Procedure Start Time/Medication Administration: 08/04/2023 7:27 AM Patient location during procedure: pre-op Informed Consent Consent Obtained: Written [place] Protocol A moment to CARE was completed. [...] 3 Needle and Epidural Catheter Needle type: Tank Top TVwilliam Needle gauge: 17G Needle length: 6 in [...] August 04, 2023 TIME: 12:10 PM CSN: [id number] [facility] 08-04-2023 Note HNO ID: [id number] Author: MARIIA AGUERO APRN.SHEEP FARM MANAGER Service: ? Author Type: Nurse Contract Project Manager Type: Anesthesia Procedure Notes Filed: 08/04/2023 10:01 Note Text: ANESTHESIOLOGY PROCEDURE NOTE Airway General Information Procedure Start Time/Medication Administration: 08/04/2023 8:47 AM Patient location during procedure: OR Patient identity confirmed: arm band and patient Staffing Anesthesiologist: Amanda Alcantar DO SHEEP FARM MANAGER: Mariia Aguero APRN.SHEEP FARM MANAGER Performed by: other anesthesia staff Indications and Patient Condition Indications for airway management: anesthesia Preoxygenated: yes anesthesia circuit Patient position: sniffing Method: modified rapid sequence Difficult Mask: No Airway Accessory: oral airway Final Airway Details Final airway type: endotracheal airway Final Endotracheal Airway: ETT Cuffed: yes Successful intubation technique: video laryngoscopy Devices used: Skycheckin Endotracheal tube insertion site: oral Blade size: #4 ETT size (mm): 7.5 Measured from: lips Measurement (cm): 22 Placement verified by: capnometry Cormack-Lehane Classification: grade I - full view of glottis Number of attempts at approach: 1 Airway not difficult Comments Atraumatic intubation. Dentition and lips remain the same as preop. Critical care MANAGER SIMULATION performed intubation. SIGNATURE: Mariia Aguero APRN.SHEEP FARM MANAGER PATIENT NAME: Susi Naqvi Ortiz DATE: August 04, 2023 TIME: 9:58 AM CSN: [id number] [facility] 08-04-2023 Note HNO ID: [id number] Author: AMANDA ALCANTAR DO Service: Anesthesiology Author Type: Physician Type: Anesthesia Procedure Notes Filed: 08/04/2023 09:33 Note Text: ANESTHESIOLOGY PROCEDURE NOTE A-Line General Information Procedure Start Time/Medication Administration: 08/04/2023 9:02 AM Patient location during procedure: OR Consent Obtained: Yes Indications: continuous blood pressure monitoring Staffing Anesthesiologist: Amanda Alcantar DO SHEEP FARM MANAGER: Mariia Aguero APRN.SHEEP FARM MANAGER Performed by: anesthesiologist Preparation Sterility Preparation: hand [...] Amanda Alcantar DO PATIENT NAME: Susi Naqvi Ortzi DATE: August 04, 2023 TIME: 9:32 AM CSN: [id number] [facility] 08-04-2023 Note HNO ID: [id number] Author: AMANDA ALCANTAR DO Service: Anesthesiology Author Type: Physician Type: Anesthesia Procedure Notes Filed: 08/04/2023 09:32 Note Text: ANESTHESIOLOGY PROCEDURE NOTE PIV General Information Procedure Start Time/Medication Administration: 08/04/2023 9:20 AM Patient Location: OR Staffing Anesthesiologist: Amanda Alcantar DO SHEEP FARM MANAGER: Mariia Aguero APRN.SHEEP FARM MANAGER Other anesthesia staff/rotator: Cari Elizondo APRN.SHEEP FARM MANAGER Performed by: anesthesiologist Preparation Sterility Preparation: hand hygiene performed prior to procedure Site Prep: Betadine and chlorhexidine Procedure Details Indication: need for IV access Needle Size/Type: 14 gauge angiocath Orientation: Left Location: Antecubital Imaging Guidance Used: Yes Image in Chart: Yes SIGNATURE: Amanda Alcantar DO PATIENT NAME: Susi Naqvi Ortiz DATE: August 04, 2023 TIME: 9:30 AM CSN: [id number] [facility] 08-03-2023 Miscellaneous Notes BMI SPECIALTY CARE COORDINATION SURGERY PRE-OP EDUCATION NOTE Phoned patient to reinforce prior pre-op instruction and answer any questions she might have. No answer. Left brief vmm including contact info for this RN and requested call back. documented in this encounter [facility] 07-21-2023 Note HNO ID: [id number] Author: EARL MCGEE RD Service: ? Author [...] visit. Either the patient or their legal territory service representative has been informed of the [...] Advanced Nutrition OR 5.5 packets/day Light Start [place] Breakfast Essentials mixed with 1% or skim [...] from poultry, beef, fish, seafood, eggs, cheese, [place] Citizen yogurt, cottage cheese, beans, lentils, tofu. Choose meat products that are tender, shredded and/or ground to increase tolerance. Remember to chew food well, eat slow, take small bites CHANGES IN TREATMENT: Patient met goal(s): Yes Diagnosis: has not changed. Allergies: Adhes. Gbqs-Xjfn-Qxziqwbraxkn, Adhesive Tape-Silicones, Augmentin [Amoxicillin-Pot Clavulanate], Keflex [Cephalexin], [...] Significant unintentional weight (more content not included)... [facility] 07-20-2023 Note HNO ID: [id number] Author: JOE GRANDA MD Service: ? Author Type: Physician Type: Progress Notes Filed: 07/20/2023 14:06 Note Text: SURGERY PREOPERATIVE VISIT NOTE Name: Susi Ortiz Medical Record: [id number] Encounter No.: [id number] Susi Ortiz is a 38 year old [...] use: Never ALLERGIES: ALLERGIES Allergen Reactions Adhes. 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 I have also discussed medical [...] this is a malabsorptive procedure well and chrisitan (more content not included)... [facility] 06-11-2023 Note HNO ID: [id number] Author: Heidy Dsouza RN Service: ? Author Type: ? Type: Progress Notes Filed: 06/11/2023 5:30 PM Note Text: Received approval for open LEIDA. Scheduled on 08/04/[address] Granda at . [facility] 04-27-2023 Miscellaneous Notes This patient underwent [...] Joe Granda MD documented in this encounter [facility] 04-13-2023 History of Present illness Narrative Patient presented for virtual visit, however she has not yet had bariatric surgery and does not need 2 week post op visit at this time. Will be rescheduled 2 weeks before surgery once scheduled. Mary Colbert RD, LD documented in this encounter [facility] 04-11-2023 Note HNO ID: [id number] Author: Note, Interface Service: ? Author Type: ? 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 Advance to FLD diet Pain control DVT ppx with BID LVX Continue home abilify, cymbalta, lamictal and prazosin Continue home singulair DC potentially later today pending FLD tolerance and pain control Plan discussed with staff Dr Alicia Hughes M.D. General Surgery Resident For team paging 6AM-6PM during weekdays: [phone] for [facility] Team For team paging after 6PM or on weekend / holidays: [phone] for General Surgery Subjective: - No acute [...] 1006 APTT 30.3 INR 0.9 Cardiac Enzymes [facility] 03-31-2023 Note HNO ID: [id number] Author: Heber Riddle, LILIANA Service: ? Author Type: Student Type: Anesthesia Procedure Notes Filed: 03/31/2023 11:20 AM Note Text: ANESTHESIOLOGY PROCEDURE NOTE Airway General Information Procedure Start Time/Medication Administration: 03/31/2023 10:35 AM Patient location during procedure: OR Timeout Performed Pre-procedure: timeout performed Consent Obtained: Yes Patient identity confirmed: arm band and patient Staffing Anesthesiologist: Darrel Conklin MD SHEEP FARM MANAGER: Sheridan Claire APRN.SHEEP FARM MANAGER SRNA: Heber Riddle SRNA Performed by: LILIANA [...] March 31, 2023 TIME: 11:18 AM CSN: [id number] [facility] 03-10-2023 Instructions Shruti Alvarado APRN.BRAND DESIGNER - 03/10/2023 2:02 PM EDT PATIENT PREOPERATIVE INSTRUCTIONS Joe Granda MD has scheduled you for your procedure at this surgery center: [facility]: [phone] --[address] [address]. Please check in on the 1st floor [...] Procedures: - YOU MUST HAVE A RESPONSIBLE ENVIRONMENTAL EMERGENCIES ASSISTANT TAKE YOU HOME. A AUTO PAINTER OR TOP AND TRIM WORKER CANNOT BE MADE A RESPONSIBLE ENVIRONMENTAL EMERGENCIES ASSISTANT. - We recommend that a responsible person [...] Advance Directive, please fax a copy to [phone] or email to for it to be [...] into your chart that day. Shruti Alvarado APRN.BRAND DESIGNER documented in this encounter [facility] 03-10-2023 History and physical note [...] medication comments found. ALLERGIES Allergen Reactions Adhes. Anld-Vszj-Hr* Rash Adhesive Tape-Silic* Rash Augmentin [Amoxicil* Diarrhea Keflex [Cephalexin] Rash, Itching Penicillins Hives Ultram [Tramadol Hc* Itching COVID VACCINATION STATUS: Fully vaccinated REVIEW OF SYSTEMS: PAIN ASSESSMENT: General: No weight loss, malaise or fevers. Neuro: No history of TIA's, stroke, TRUCK SERVICE MANAGER tumor, impaired sensorium, hemiplegia, paraplegia or quadraplegia. No neurological symptoms or problems. Positive for Migraines on Inderal Respiratory: Positive for TONEY non compliant with CPAP , Negative for No history of current cough or dyspnea, or pneumonia in the past 6 weeks. No history of respiratory/pulmonary symptoms or problems Cardiovascular: No history of HTN requiring medication, no history of angina, CHF, DC, cardiac surgery or stents. Denies rest pain, gangrene or revascularization/amputation for PVD. No history of cardiovascular symptoms or problems. GI: See HPI : No history of dysuria, frequency or incontinence,, stones or chronic kidney disease, No difficulty urinating, nocturia > 1 time per night or hematuria TORPEDO SPECIALIST: Negative for abnormal vaginal bleeding, abnormal [...] normal intervals, reviewed by myself., reviewed by caddy master. All in Epic Assessment/Plan TONEY on CPAP Assessment: non compliant with CPAP Gastroesophageal reflux disease Assessment: stable on PPI Bipolar affective disorder ([facility]) Assessment: stable on medication Denies any suicidal ideations Morbid obesity with body mass index of 60.0-69.9 in adult ([facility]) Assessment: Body mass index is 68.66 kg/m . Thrombocytosis ([facility]) Assessment: s/p splenectomy in 2014, Elevated [...] TIME: 1:33 PM documented in this encounter [facility] 03-05-[address] - 03/05/2023 1:53 PM EDT Instructions for Liquid Diet before surgery Start the full liquid diet 3 weeks before surgery - Use only the approved protein shakes: 4.5 bottles/day Slim Fast Advanced Nutrition OR 5.5 packets/day Light Start [place] Breakfast Essentials mixed with 1% or skim [...] from poultry, beef, fish, seafood, eggs, cheese, [place] Citizen yogurt, cottage cheese, beans, lentils, tofu. Choose meat products that are tender, shredded and/or ground to increase tolerance. Remember to chew food well, eat slow, take small bites documented in this encounter [facility] 03-05-2023 History of Present illness Narrative I have communicated my name and active licensure. The patient's identity and physical location were verified at the time of this visit. Either the patient or their legal territory service representative has been informed of the [...] Advanced Nutrition OR 5.5 packets/day Light Start [place] Breakfast Essentials mixed with 1% or skim [...] from poultry, beef, fish, seafood, eggs, cheese, [place] Citizen yogurt, cottage cheese, beans, lentils, tofu. Choose meat products that are tender, shredded and/or ground to increase tolerance. Remember to chew food well, eat slow, take small bites CHANGES IN TREATMENT: Patient met goal(s): Partially Diagnosis: has not changed. Allergies: Adhes. Umol-Qppb-Poxtbfrspdcu, Adhesive Tape-Silicones, Augmentin [Amoxicillin-Pot Clavulanate], Keflex [Cephalexin], [...] mg per day Calcium Citrate https://www.bariatricfusion.com/c ollections/adek/products/bariatri w-gbrwjhxzmulz-subs-adek-vitamin- with-iron OR - 2 per day Bariatric Advantage High ADEK Multivitamin Capsules AND 1544-5011 mg per day Calcium Citrate AND 45-60 mg per day Iron https://www.bariatricadvantage.co m/oakc-ywti-nogccvyvmaop-capsules OR - 2 per day Celebrate Multi-ADEK with Iron Chewable Tablets AND 2869-9801 mg per day Calcium Citrate https://Perfecto Mobile.Wishdates/pro ducts/mpimv-jabn-qewo-iron?varian o=[id number] OR -1 per day ProCare DS/LEIDA Bariatric Multivitamin with 60 mg Iron AND 0800-5402 mg per day Calcium Citrate https://BeLocal/CarHound-Qranioapxq-kdio-axsbl-bariatric-multivi lgevq-zpxsfwp-ld-leida/?sku=Vit-Ba wzJzacGQ-EDFD-49ag S-LEIDA-30ct Nutrition Monitoring & Evaluation: Follow pre op diet and fluid guidelines Criteria: weight check Need for Follow up: 2 weeks post op Appointment Start Time: 1:00 pm Appointment End Time: 1:21 pm Time Spent on Consult: 21 minutes - Group SIGNATURE: Isabela Renee RD PATIENT NAME: Susi Jeanenship DATE: 03/05/2023 TIME: 12:55 PM PAGER: documented in this encounter [facility] 01-05-2023 Miscellaneous Notes [facility] SURGERY APPROVAL CALL Received e-mail confirmation of insurance approval for bariatric surgery.Pre-operative call placed to the patient, this RN spoke with patient and agreed upon a surgery date of February 03 2023. Surgical episode request sent to [facility] surgery scheduling. 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 Creatinine level 0.81 Patient instructed to start pre-op 800 calorie total protein liquid diet daily beginning 2 weeks prior to surgery. - Stop all ASA and NSAID products, Surprise 3 fish oil, herbal products such as [...] Pt instructed to fax FMLA forms to [phone] and allow 7-10 days for completion. - Deandra video assigned. - All questions and concerns addressed and patient verbalized understanding. - Patient case reviewed. All nutrition appointments completed, psychology clearance obtained, surgeon visit and procedure type verified, medical optimization obtained and all testing complete. 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 Yes, patient has Con ABO. Pao Hodgson RN documented in this encounter [facility] 12-15-[address] - [...] mg per day Calcium Citrate https://www.bariatricfusion.com/c ollections/adek/products/bariatri v-ofbnqxpzwpdh-lzjy-adek-vitamin- with-iron OR - 2 per day Bariatric Advantage High ADEK Multivitamin Capsules AND 8575-6729 mg per day Calcium Citrate AND 45-60 mg per day Iron https://www.bariatricadNew WORC (III) Development & Management.MindFuse m/tvkz-trsb-umlzkxkfdpti-capsules OR - 2 per day Celebrate Multi-ADEK with Iron Chewable Tablets AND 8505-5119 mg per day Calcium Citrate https://FancyBox/pro ducts/rsxwo-pvga-lerz-iron?varian d=[id number] OR -1 per day ProCare DS/LEIDA Bariatric Multivitamin with 60 mg Iron AND 5967-1103 mg per day Calcium Citrate https://BeLocal/procare-he hfyr-qwvs-utzll-bariatric-multivi kyqzd-iwnkmpr-ky-leida/?sku=Vit-Ba vfUelaOA-NGRI-80kl S-LEIDA-30ct documented in this encounter [facility] 12-15-2022 History of Present illness Narrative The [facility] Nutrition Therapy: Virtual Consult - Re-assessment I have communicated my name and active licensure. The patient's identity and physical location were verified at the time of this visit. Either the patient or their legal territory service representative has been informed of the [...] mg per day Calcium Citrate https://www.bariatricfusion.com/c ollections/adek/products/bariatri q-bgwixrenfwms-weiz-adek-vitamin- with-iron OR - 2 per day Bariatric Advantage High ADEK Multivitamin Capsules AND 3611-2335 mg per day Calcium Citrate AND 45-60 mg per day Iron https://www.bariatricadvantage.co m/rhyz-tlkq-kqkjwpfrncxo-capsules OR - 2 per day Celebrate Multi-ADEK with Iron Chewable Tablets AND 0338-7106 mg per day Calcium Citrate https://WhenSoons.Wishdates/pro ducts/xdtvk-drql-fjwv-iron?varian i=59968437954343 OR -1 per day ProCare DS/LEIDA Bariatric Multivitamin with 60 mg Iron AND 6088-8538 mg per day Calcium Citrate https://BeLocal/procare-he ourh-qtqo-mqjpr-bariatric-multivi ljfcs-qcxzpan-gu-leida/?sku=Vit-Ba qdUpsvOW-PYXG-90eg S-LEIDA-30ct Nutrition Monitoring & Evaluation: Weight loss [...] ADEK Complete Capsule (3x per day) AND 0802-8741 mg calcium citrate https://www.bariatricfusion.com/c ollections/adek/products/bariatri n-jgznoedhiccf-rada-adek-vitamin- with-iron OR - Bariatric Advantage High ADEK Chewable Multivitamin (2x per day) AND 2212-2805 mg calcium citrate https://www.bariatricadvantage.co m/kilp-isnj-oghjugwlalhh-capsules OR -Celebrate multi-ADEK chewable (3x per day) AND 8001-1114 mg calcium citrate AND 1 chewable Iron 45-60 mg https://celebrateKleos.com/pro ducts/multi-adek?djbuirb=13704969 53341 OR -ProCare DS/LEIDA Bariatric multivitamin with 60 mg Iron (1x per day) AND 0926-5203 mg calcium citrate daily https://BeLocal/procare-he cbxh-mjhk-sstcf-bariatric-multivi dabzg-ftmqzni-lj-leida/?sku=Vit-Ba cdDljnKU-LAQC-58de 2. Protein goal: 77 grams protein/day. Protein [...] Advanced Nutrition OR 5.5 packets/day Light Start [place] Breakfast Essentials mixed with 1% or skim [...] 3:08 PM PAGER: documented in this encounter [facility] 12-13-2022 Evaluation note Encounter Date [...] that time. Patient verbalized understanding treatment plan. [facility] 06-07-2023 History of Present illness Narrative* [...] selecting actual surgery date. Heidy Dsouza RN Loading Unit Tool Setter for Cony Soler MD Covering for Joe Granda MD documented in this encounter[facility] NoteEXAMINATION: XR CHEST 2 V [...] Electronically authenticated by: DARREL NICHOLS Date: 2022-08-12 15:04[facility]12-07-2022 Instructions* Patient Instructions* Amina Nieto MD - 06/04/2022 6:53 PM EST INSTRUCTIONS: 1) Please contact me (Dr. Nieto) if you have not heard about your test results within a few days after you had them done. Thank you: Contact information: [facility] M[facility]/Attention: Dr. Nieto [address] [place] [address] 2) Please check with your insurance company regarding cost/coverage of any tests ordered prior to having them completed. Edinson Ortiz , Thank you for completing your visit today and we welcome you to the surgical program. We are sure that you will still have some additional questions and encourage you to reach out to your care provider via [employer] OR your Patient Navigator. Patient Navigators are assigned alphabetically by patient last name. The contact information for each Navigator is listed below. Last names A-E= Kody Last names F-L = Yoshi Last names [...] free to ask for a hard copy. [email or web address] Once you complete all of the requirements (testing, consultations, diet, etc) from each provider, please call [phone] and select option #5 to initiate insurance approval. Please note scheduling information It is important to keep track of your scheduled appointments to ensure successful completion of oursurgical program. Any missed appointments can further delay your pre-surgical work-up. [facility] does offer an opt-in option for getting text message appointment reminders. Please follow the link below if you would like to opt into this service. [email or web address] As part of your surgical work up, [...] these tests. You may call your local [facility] to get an appointment. - Lab work- No appointment is needed for this, you may complete at any [facility] Laboratory.These are usually fasting labs, please be sure to fast (only water permitted) for 10-12 hours priorto the test. -Sleep Study- Please call [phone] or [phone] to get this appointment set up. -Sleep Medicine Consult- (Only needed if sleep study confirms sleep apnea) Please call [phone] [phone] to schedule an appointment. Any testing that is completed outside of [facility] will need faxed to [phone]. 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 No paresthesias/temperature sensation changes or disturbances/weakness/h/o CVA [...] -she had labs done at her local facility-[facility]; check remaining presurgical labs, CXR, EKG (had recent CT abd); will try to get the labs from [place]; Will mail her orders so she can get them done locally and try to obtain recent labs from [facility] 2)Sleep disordered breathing: external sleep study scanned in Epic-+TONEY -check sleep study and refer to Sleep medicine-she will try to have these done locally. Amina Nieto MD I spent a total of 45 minutes on the date of the service which included preparing to see the patient, vdoc-ax-bbqn patient care, completing clinical documentation, obtaining and/or reviewing separately obtained history, counseling and educating the patient/family/caregiver, ordering medications, keli ts, or procedures, and care coordination (not separately reported). documented in this encounterMem[facility]11-[facility]22 Miscellaneous Notes* Telephone Encounter - [...] better option for her for weight loss custodial. Pao Hodgson RN * Telephone Encounter - Jessica Rodriguez - 05/01/2022 1:55 PM EDT Pt has questions regarding upcoming surgery PH: [phone] documented in this encounterMem[facility]11-04-2022 Miscellaneous Notes* Telephone Encounter - [...] switch. Joe Granda MD documented in this encounterMem[facility]10-21-2022 Miscellaneous Notes* Telephone Encounter - Pao Hodgson RN - 04/18/2022 1:34 PM EDT [facility]GERY SCHEDULING CALL Received e-mail confirmation of insurance approval for bariatric surgery.Pre- operative call placed to the patient, this RN spoke with patient and agreed upon a surgery date of June 10 2022. Surgical episode request sent to [facility] surgery scheduling. Patient understands that the surgery type is partial gastrectomy with gastrojejunostomy . Creatinine level pending results Patient instructed to start pre-op 800 calorie total protein liquid diet daily beginning 2 weeks prior to surgery provided creatinine is in range. - Stop all ASA and NSAID products, Surprise 3 fish oil, herbal products such as [...] Pt instructed to fax FMLA forms to [phone] and allow 7-10 days for completion. Deandra [...] ordered Pao Hodgson RN documented in this encounterMemorial [facility]10-19-[facility]22 History of Present illness Narrative* [...] which included preparing to see the patient, ssar-hy-ligv patient care, and completing clinical documentation, test ordering, care coordination. Joe Granda MD documented in this encounterMem[facility]10-19-2022 Evaluation note* Encounter Date Diagnosis [...] Mar, Right foot pain (ICD-10 - M79.671) [facility] 10-14-2022 NotePROCEDURE: XR GI UPPER W [...] Electronically authenticated by: ESTELLA WHITEHEAD Date: 2022-04-11 10:21[facility]10-14-2022 NotePROCEDURE: XR GI UPPER W KUB [...] Electronically authenticated by: ESTELLA WHITEHEAD Date: 2022-04-11 10:21[facility]09-29-2022 Evaluation note* Encounter Date Diagnosis Assessment Notes Treatment Notes Treatment Clinical Notes Feb, Gastroesophageal ref lux disease, esophagitis presence not specified (ICD-10 - K21.9) [facility] Other 09-12-2022 History of Present illness Narrative* Joe Granda MD - 03/10/2022 3:37 PM EDT VIRTUAL VISIT PROGRESS NOTE This is a virtual visit using [employer] Interventional video visit. It required patient-provider interaction for [...] which included preparing to see the patient, gdrj-rd-hnbx patient care, completing clinical documentation, obtaining and/or reviewing separately obtained history, and care coordination (not separately reported) Joe Granda MD documented in this encounterMem[facility]08-17-2022 NoteHNO ID: [id number] Author: SHIREEN Solo Service: Radiology Author Type: [...] BY: SHIREEN SOLO February 12, 2022 2:58 PMASteward Health Care [id number] History of Present illness Narrative* SHIREEN Solo [...] 12, 2022 2:58 PM documented in this encounterMemorial [facility]08-17-2022 Nurse Note* Elizabeth Stephens RN [...] 2022 TIME: 2:30 PM documented in this encounterMemorial [facility]07-25-2022 History of Present illness Narrative* Joe Granda MD - 01/20/2022 2:37 PM EDT VIRTUAL VISIT PROGRESS NOTE This is a virtual visit using [employer] Interventional video visit. It required patient-provider interaction for [...] for this visit. ALLERGIES Allergen Reactions Adhes. Jtss-Wglm-Xc* Rash Adhesive Tape-Silic* Rash Augmentin [Amoxicil* Diarrhea [...] which included preparing to see the patient, opvx-ht-dlzu patient care, completing clinical documentation, obtaining and/or reviewing separately obtained history, performing a medically appropriate examination, counseling and educating the pat ient/family/caregiver, ordering medications, tests, or procedures, communicating with other HCPs (not separately reported) and care coordination (not separately reported) Joe Granda MD documented in this encounterMemorial [facility]07-[facility]22 History of Present illness Narrative* Karon [...] and 4 hours apart from additional calcium www.Done In :60 SecondsarenoSifteo.Wishdates - Bariatric Choice: 4 Complete Multivitamins (chewables) per day Www.bariatricchoice.com - Bariatric Advantage: 2 Multivitamins and 3 Calcium Citrate Chewables per day * take calcium citrate separately from Multivitamin with iron at least 2 hours apart and 4 hours apart from additional calcium Www.bariatricadvantage.Wishdates 2. Do not skip meals. 3. Use [...] Slim Fast Advanced Nutrition OR Light Start [place] Breakfast Essentials mixed with 1% or skim [...] intake at meals and snacks Please call [phone], option 5. Leave a message for the navigation team when you are finishedwith all clearances (nutrition, psychology, medical, surgeon) 1.Starting ~3 weeks after surgery take: daily multivitamin Vit D3 3,000 international unit(s) Vit B12 500 mcg Vit B1 20-100 mg Iron 45 mg Calcium CITRATE 1904-5977 mg/day OR It is okay to use combination vitamin/minerals to reduce pill volume. (Examples [employer] Bariatric Multivitamin- 45 (1) chewable/day AND 1075-6516 mg calcium citrate OR Bariatric Fusion chewable complete bariatric vitamin (2) chews, twice daily. IF DS: - Bariatric Fusion ADEK Complete Capsule (3x per day) AND 0285-3606 mg calcium citrate OR - Bariatric Advantage High ADEK Chewable Multivitamin (2x per day) AND 7378-2765 mg calcium citrate OR -Celebrate multi-ADEK chewable (3x per day) AND 1946-5024 mg calcium citrate AND 1 chewable Iron [...] Advanced Nutrition OR 5.5 packets Light Start [place] Breakfast Essentials mixed with 1% or skim [...] by: Karon Monsivais RD documented in this encounterMemorial Health [facility]07-22-2022 Instructions* Patient Instructions* Karon Monsivais RD - 01/17/2022 9:12 AM EDT Please call [phone], option 5. Leave a message for the navigation team when you are finishedwith all clearances (nutrition, psychology, medical, surgeon) 1.Starting ~3 weeks after surgery take: daily multivitamin Vit D3 3,000 international unit(s) Vit B12 500 mcg Vit B1 20-100 mg Iron 45 mg Calcium CITRATE 4231-4774 mg/day OR It is okay to use combination vitamin/minerals to reduce pill volume. (Examples 99.co Bariatric Multivitamin- 45 (1) chewable/day AND 8948-8351 mg calcium citrate OR Bariatric Fusion chewable complete bariatric vitamin (2) chews, twice daily. IF DS: - Bariatric Fusion ADEK Complete Capsule (3x per day) AND 5164-3365 mg calcium citrate OR - Bariatric Advantage High ADEK Chewable Multivitamin (2x per day) AND 0263-3292 mg calcium citrate OR -Celebrate multi-ADEK chewable (3x per day) AND 2626-9311 mg calcium citrate AND 1 chewable Iron [...] Advanced Nutrition OR 5.5 packets Light Start [place] Breakfast Essentials mixed with 1% or skim [...] up: 2 weeks pre-op documented in this encounter[facility] History and physical note * [...] attached. SIGNATURE: Joe Granda MD PATIENT NAME: Susijorge luis Ortiz DATE: December 18, 2021 TIME: 12:10 PM * Melissa Olivas PA-C - 12/05/2021 1:10 PM EDT HISTORY AND PHYSICAL EXAMINATION SERVICE DATE: 12/05/2021 SERVICE TIME: 1:12 PM PRIMARY CARE PHYSICIAN: Rosaura Estrada, BRAND DESIGNER, BRAND DESIGNER This is a virtual visit using alternative [...] Negative for: dysuria, frequent urination and hematuria. TORPEDO SPECIALIST: +amenorrhea with IUD Endocrine: Negative for: [...] medication comments found. ALLERGIES Allergen Reactions Adhes. Afca-Plqr-Kx* Rash Adhesive Tape-Silic* Rash Augmentin [Amoxicil* Diarrhea [...] or any previous visit (from the past [id number] hour(s)). Assessment TONEY on CPAP Assessment: not [...] body mass index of 60.0-69.9 in adult ([facility]) Assessment: Body mass index is 66.09 kg/m . Dugan Activity Status Index: METS: Climb a flight of stairs or walk up a hill (5.50 METs) DASI Score: 5.5 Patient denies any chest pain or undue shortness of breath with the above physical activity. Clinical Frailty Scale: 3. Well, with treated comorbid disease [id number] Score: Age: <65 Sex: female [id number] Score: 1 ARISCAT Score: Age: <=50 ARISCAT [...] 1:10 PM PAGER/CONTACT #: documented in this encounterMem[facility]06-[facility] History of Present illness Narrative* Akosua Peraza RD - 12/05/2021 11:45 AM EDT No show for nutrition appointment on 12/05/21. Signed by: Akosua Peraza RD documented in this encounterMem[facility]22 Evaluation note* Encounter Date Diagnosis [...] sprain elsa e care material was printed [employer] Other 05-11-2022 History of Present illness Narrative* Joe Granda MD - 11/06/2021 9:40 AM EDT Assessment NEW BARIATRIC PATIENT PATIENT NAME: Susi Ortiz REASON FOR CONSULT: Morbid Obesity REQUESTING PHYSICIAN: Self DATE of SERVICE: 11/06/2021 TIME of SERVICE: 9:40 AM PCP: Rosaura Estrada, BRAND DESIGNER, BRAND DESIGNER CC: Morbid Obesity HPI: Ms. Ortiz is [...] use: Never ALLERGIES: ALLERGIES Allergen Reactions Adhes. Ngjq-Erml-Pw* Rash Adhesive Tape-Silic* Rash Augmentin [Amoxicil* Diarrhea [...] which included preparing to see the patient, [id number]-mj-azxc patient care, completing clinical documentation, obtaining and/or reviewing separately obtained history, ordering medications, tests, or procedures and care coordination (not separately reported). Joe Granda MD documented in this encounterMem[facility]05-09-[facility]22 Instructions* Patient Instructions* Karon Monsivais, RD - 11/04/2021 12:44 PM EDT 1. Research the post-op vitamin options (can change depending on what procedure is done) Some examples of vitamins/mineral companies: - Bariatric Fusion: 4 Complete Chewable Multivitamins per day (2 in the AM, 2 in the PM) www.bariatricfusion.com - 99.co: 1 Bariatric Multivitamin and Calcium Citrate (total of 1200- 1500 mg/day) * take calcium citrate separately from Multivitamin with iron at least 2 hours apart and 4 hours apart from additional calcium www.[employer].Wishdates - Bariatric Choice: 4 Complete Multivitamins (chewables) per day [email or web address] - Bariatric Advantage: 2 Multivitamins and 3 Calcium Citrate Chewables per day * take calcium citrate separately from Multivitamin with iron at least 2 hours apart and 4 hours apart from additional calcium Www.[email or web address].Wishdates 2. Do not skip meals. 3. Use [...] Slim Fast Advanced Nutrition OR Light Start [place] Breakfast Essentials mixed with 1% or skim milk OR Atkins Protein Shakes (15 gm protein version) OR Glucose Controlled Boost Pre-op goal weight: 380 pounds - per Dr. Granda Protein needs: 77 gm per day Nutrition Monitoring & Evaluation: 1-2 # weight loss per week prior to surgery Criteria: Weight check Need for Follow up: 1 month, [phone] documented in this encounterMem[facility]05-09-[facility] History of Present illness Narrative* Karon [...] Your Guide to Surgery by next session [email or web address] n 2. Do not skip [...] AM, 2 in the PM). www.bariatricfusion.com - 99.co: 1 Bariatric Multivitamin and Calcium Citrate (total of 1200- 1500 mg/day) * take calcium citrate separately from Multivitamin with iron at least 2 hours apart and 4 hours apart from additional calcium www.Done In :60 [employer].Wishdates - Bariatric Choice: 4 Complete Multivitamins (chewables) per day Www.bariatricchoice.com - Bariatric Advantage: 2 Multivitamins and 3 Calcium Citrate Chewables per day * take calcium citrate separately from Multivitamin with iron at least 2 hours apart and 4 hours apart from additional calcium. Www.bariatricadvantage.Wishdates For reflux: 1. Try to eat something every 2-3 hours and do not skip meals. Large meals may increase stomach pressure and make your reflux worse. 2. Avoid possible trigger foods as follows: Caffeine (regular coffee, regular tea) Carbonated beverages Mints (peppermint, spearmint) Fried, greasy foods Garlic and onions [place] fruits, juices Alcohol Tomato products Spicy foods [...] in the AM, 2 in the PM) www.bariatricfusion.Wishdates - [employer]: 1 Bariatric Multivitamin and Calcium Citrate (total of 1200- 1500 mg/day) * take calcium citrate separately from Multivitamin with iron at least 2 hours apart and 4 hours apart from additional calcium www.Done In :60 [employer].Wishdates - Bariatric Choice: 4 Complete Multivitamins (chewables) per day Www.bariatricchoice.Wishdates - Bariatric Advantage: 2 Multivitamins and 3 Calcium Citrate Chewables per day * take calcium citrate separately from Multivitamin with iron at least 2 hours apart and 4 hours apart from additional calcium Www.bariatricadMobiMagicage.Wishdates 2. Do not skip meals. 3. Use [...] Slim Fast Advanced Nutrition OR Light Start [place] Breakfast Essentials mixed with 1% or skim milk OR Atkins Protein Shakes (15 gm protein version) OR Glucose Controlled Boost Pre-op goal weight: 380 pounds - per Dr. Granda Protein needs: 77 gm per day Nutrition Monitoring & Evaluation: 1-2 # weight loss per week prior to surgery Criteria: Weight check Need for Follow up: 1 month, [phone] Group Appointment Start Time: 11:45 AM Group Appointment End Time: 12:29 PM Time Spent on Consult: 44 minutes - Group Signed by: Karon Monsivais RD documented in this encounterMem[facility]05-02-[facility]22 Evaluation note* Encounter Date Diagnosis Assessment Notes Treatment Notes Treatment Clinical Notes October, Gastroesophageal ref lux disease, esophagitis presence not specified (ICD-10 - K21.9) [employer] Other 04-15-2022 Evaluation note* Encounter Date Diagnosis Assessment Notes Treatment Notes Treatment Clinical Notes Sep, Other d/t progessi vely worsening shortness of breath and hypoxia, patient was recommended to go to ER for higher acuity care Norton [facility] Other 04-07-2022 Evaluation note* Encounter Date Diagnosis [...] [facility] home care material was printed [employer] Other 04-04-2022 History of Present illness Narrative* 09/30/2021 * 9:15AM * SUSI ORTIZ , 36 year is contacted for an (audio-visual, or audio only) Telehealth visit. * Today's visit was provided through telemedicine conferencing: Using Litebi platform. * Consent: * The concept of [...] She went in for evaluation with her CERTIFIED MEDICAL CODER in early January 2021, and was subsequently found to have a complex ovarian cyst. She was taken for surgery at [facility] later that month, and reports that the [...] which was also performed at [facility]. 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 We are sure that you will still have some additional questions and encourage you to reach out to your care provider via [employer] OR your Patient Navigator. Patient Navigators are assigned alphabetically by patient last name. The contact information for each Navigator is listed below. Last names A-E= Malorienilam Last names F-L = Yoshi Last names [...] diet, etc) from each provider, please call [phone] and select option #5 to initiate insurance approval. Please note scheduling information It is important to keep track of your scheduled appointments to ensure successful completion of oursurgical program. Any missed appointments can further delay your pre-surgical work-up. [facility] does offer an opt-in option for getting text message appointment reminders. Please follow the link below if you would like to opt into this service. [email or web address] As part of your surgical work up, [...] follow up visit or rescheduling, Please call [phone] OR [phone] Any testing that is completed outside of [facility] will need faxed to [phone]. We look forward to working with you on this journey, Jayshree Huffman APRN.KATTY documented in this encounterMemorial [facility]03-28-2022 History of Present illness Narrative* [...] to severe GERD. Sleeve in 2017 at [facility], in [place]. 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 ALLERGIES Allergen Reactions Adhes. Qots-Kvtv-Tn* Rash Adhesive Tape-Silic* Rash Augmentin [Amoxicil* Diarrhea [...] which included preparing to see the patient, kqwc-ni-mejo patient care, completing clinical documentation, obtaining and/or reviewing separately obtained history, counseling and educating the patient/family/caregiver, ordering medications, keli ts, or procedures and communicating with other HCPs (not separately reported). Medical Decision Making Jayshree Huffman APRN.KATTY documented in this encounterMem[facility]11-19-2021 History and physical note * [...] She had a sleeve gastrectomy done in 2016 at [facility]. Her preop weight was 380 lbs. [...] Minimally Invasive General Surgery documented in this encounterUniversity [facility]als [facility] CenterChief complaint Narrative - Reported* An [...] Other intestinal malabsorption documented in this encounter [facility]* Diagnosis Gastroesophageal reflux disease, unspecified whether esophagitis present- Primary Class 3 severe obesity with serious comorbidity and body mass index (BMI) of 60.0 to 69.9 in adult, unspecified obesity type (HCC) TONEY on CPAP Obstructive sleep apnea (adult) (pediatric) S/P laparoscopic sleeve gastrectomy Bariatric surgery status Postoperative malabsorption Other and unspecified postsurgical nonabsorption documented in this encounter [facility] HospitalEval[facility] [place] [facility]* Diagnosis Dysphagia, unspecified type- Primary Gastroesophageal reflux disease, unspecified whether esophagitis present History of sleeve gastrectomy documented in this encounter [facility] note* Diagnosis History of sleeve gastrectomy- Primary BMI 70 and over, adult (HCC) Body Mass Index 70 and over, adult Dietary counseling and surveillance Dietary surveillance and counseling documented in this encounter [facility]* Diagnosis History of sleeve gastrectomy- Primary Gastric fistula Fistula of stomach or duodenum documented in this encounter [facility] note* Diagnosis NO SHOW- Primary documented in this encounter [facility] note* Diagnosis TONEY on CPAP Obstructive sleep apnea (adult) (pediatric) Gastroesophageal reflux disease, unspecified whether esophagitis present S/P laparoscopic sleeve gastrectomy Bariatric surgery status documented in this encounter [facility] noteNo InformationNort Nanali Other Evaluation note* Diagnosis Gastroesophageal reflux disease, unspecified whether esophagitis present- Primary BMI 70 and over, adult (HCC) Body Mass Index 70 and over, adult History of sleeve gastrectomy Dietary counseling and surveillance Dietary surveillance and counseling documented in this encounter [facility] note* Diagnosis Epigastric pain- Primary Abdominal pain, epigastric Gastroesophageal reflux disease without esophagitis Esophageal reflux History of sleeve gastrectomy documented in this encounter [facility] note* Diagnosis History of sleeve gastrectomy Gastric fistula Fistula of stomach or duodenum documented in this encounter [facility] note* Diagnosis NO SHOW- Primary documented in this encounter [facility] note* Diagnosis History of sleeve gastrectomy- Primary documented in this encounter [facility] noteNo assessment information [facility] Work Phone: Evalufeucb note* Diagnosis Gastroesophageal reflux disease, unspecified whether esophagitis present- Primary BMI 70 and over, adult (HCC) Body Mass Index 70 and over, adult documented in this encounter [facility] note* Diagnosis Morbid obesity with body mass index of 60.0-69.9 in adult ([facility])- Primary Morbid obesity Gastroesophageal reflux disease, unspecified whether esophagitis present BMI 70 and over, adult ([facility]) Body Mass Index 70 and over, adult Gastroesophageal reflux disease, unspecified whether esophagitis present documented in this encounter [facility]* Diagnosis Morbid obesity with body mass index of 60.0-69.9 in adult ([facility])- Primary Morbid obesity documented in this encounter [facility]* Diagnosis Weight disorder- Primary Other symptoms concerning nutrition, metabolism, and development BMI 70 and over, adult ([facility]) Body Mass Index 70 and over, adult Preop testing Preoperative examination, unspecified Abnormal weight gain Snoring Other dyspnea and respiratory abnormality Sleep-disordered breathing Other sleep disturbances Fatigue, unspecified type S/P bariatric surgery Bariatric surgery status documented in this encounter [facility]* Diagnosis Morbid obesity with BMI of 70 and over, adult ([facility])- Primary Morbid obesity documented in this encounter [facility]* Diagnosis S/P gastric sleeve procedure- Primary Weight gain following gastric bypass surgery BMI 60.0-69.9, adult ([facility]) Body Mass Index 60.0-69.9, adult Dietary counseling and surveillance Dietary surveillance and counseling documented in this encounter [facility] note* Diagnosis Weight gain following gastric bypass surgery- Primary Abnormal weight gain Preop testing Preoperative examination, unspecified Snoring Other dyspnea and respiratory abnormality Sleep-disordered breathing Other sleep disturbances Fatigue, unspecified type S/P bariatric surgery Bariatric surgery status S/P gastric sleeve procedure Dietary counseling and surveillance Dietary surveillance and counseling BMI 60.0-69.9, adult ([facility]) Body Mass Index 60.0-69.9, adult documented in this encounter [facility] note* Diagnosis Pre-op evaluation- Primary Preoperative examination, unspecified Morbid obesity with body mass index of 60.0-69.9 in adult ([facility]) Morbid obesity Gastroesophageal reflux disease, unspecified whether esophagitis present TONEY on CPAP Obstructive sleep apnea (adult) (pediatric) Bipolar affective disorder, remission status unspecified ([facility]) Thrombocytosis Essential thrombocythemia Migraine without status migrainosus, not intractable, unspecified migraine type documented in this encounter [facility] note* Diagnosis Patient left without being seen- Primary Surgical or other procedure not carried out because of patient's decision documented in this encounter [facility] note* Diagnosis S/P gastrointestinal surgery, follow-up exam- Primary Follow-up examination, following other surgery Status post biliopancreatic diversion with duodenal switch Post-operative nausea and vomiting Nausea with vomiting documented in this encounter [facility] note* Diagnosis Impaired intestinal absorption- Primary Unspecified intestinal malabsorption S/P biliopancreatic diversion with duodenal switch Class 3 severe obesity with body mass index (BMI) of 60.0 to 69.9 in adult, unspecified obesity type, unspecified whether serious comorbidity present (HCC) Dietary counseling and surveillance Dietary surveillance and counseling documented in this encounter [facility] note* Diagnosis S/P bariatric surgery- Primary Bariatric surgery status Body mass index (BMI) 60.0-69.9, adult ([facility]) Dietary counseling and surveillance Dietary surveillance and counseling documented in this encounter [facility] note* Diagnosis S/P gastrointestinal surgery, follow-up exam- Primary Follow-up examination, following other surgery S/P biliopancreatic diversion with duodenal switch Open abdominal incision with drainage, subsequent encounter Impaired intestinal absorption Unspecified intestinal malabsorption Class 3 severe obesity with body mass index (BMI) of 60.0 to 69.9 in adult, unspecified obesity type, unspecified whether serious comorbidity present (HCC) documented in this encounter [facility] note* Diagnosis S/P bariatric surgery- Primary Bariatric surgery status Impaired intestinal absorption Unspecified intestinal malabsorption Body mass index (BMI) 60.0-69.9, adult ([facility]) Dietary counseling and surveillance Dietary surveillance and counseling documented in this encounter [facility] note* Diagnosis Encounter for surgical aftercare [...] Bariatric surgery status documented in this encounter [facility] note* Diagnosis BMI 60.0-69.9, adult (HCC)- Primary Body Mass Index 60.0-69.9, adult S/P bariatric surgery Bariatric surgery status documented in this encounter [facility] note* Diagnosis Low back pain, unspecified back pain laterality, unspecified chronicity, unspecified whether sciatica present- Primary [facility] Diagnosis Low back pain, unspecified back pain laterality, unspecified chronicity, unspecified whether sciatica present- Primary [facility] Diagnosis Low back pain, unspecified back pain laterality, unspecified chronicity, unspecified whether sciatica present- Primary [facility]* Diagnosis Right knee pain, unspecified chronicity- Primary Arthritis of right knee [facility]* Diagnosis Pre-op evaluation- Primary Preoperative examination, unspecified Morbid obesity with body mass index of 60.0-69.9 in adult ([facility]) Morbid obesity Gastroesophageal reflux disease, unspecified whether esophagitis present TONEY on CPAP Obstructive sleep apnea (adult) (pediatric) Bipolar affective disorder, remission status unspecified ([facility]) Thrombocytosis Essential thrombocythemia Migraine without status migrainosus, not intractable, unspecified migraine type Pre-op evaluation- Primary Preoperative examination, unspecified Morbid obesity ([facility]) Morbid obesity TONEY on CPAP Obstructive sleep apnea (adult) (pediatric) Thrombocytosis Essential thrombocythemia Bipolar affective disorder, remission status unspecified ([facility]) Gastroesophageal reflux disease, unspecified whether esophagitis present Morbid obesity with body mass index of 60.0-69.9 in adult ([facility]) Morbid obesity Migraine without status migrainosus, not intractable, unspecified migraine type S/P biliopancreatic diversion with duodenal switch- Primary BMI 60.0-69.9, adult ([facility]) Body Mass Index 60.0-69.9, adult Prediabetes Other abnormal glucose S/P bariatric surgery Bariatric surgery status documented in this encounter [facility]* Diagnosis Low back pain, unspecified back pain laterality, unspecified chronicity, unspecified whether sciatica present- Primary Arthritis of right knee- Primary [facility] Diagnosis Arthritis of right knee- Primary Right knee pain, unspecified chronicity Internal derangement of right knee Contusion of right knee, initial encounter Left knee pain, unspecified chronicity Arthritis of left knee [facility] Diagnosis Pre-op evaluation- Primary Preoperative examination, unspecified Morbid obesity with body mass index of 60.0-69.9 in adult ([facility]) Morbid obesity Gastroesophageal reflux disease, unspecified [...] obesity type, unspecified whether serious comorbidity present ([facility]) Dietary counseling and surveillance Dietary surveillance and counseling documented in this encounter [facility]* Diagnosis Arthritis of right knee- Primary Right knee pain, unspecified chronicity documented in this encounter [facility]* Diagnosis Low back pain, unspecified back pain laterality, unspecified chronicity, unspecified whether sciatica present- Primary documented in this encounter [facility]* Diagnosis Pelvic pain Right ovarian cyst Other and unspecified ovarian cyst documented in this encounter [facility]* Diagnosis Low back pain, unspecified back pain laterality, unspecified chronicity, unspecified whether sciatica present- Primary documented in this encounter [facility] general Narrative - Reported* Type Description Date [...] X'S 2 Hospitalization History SEE ABOVE SURGERY [employer] Other History general Narrative - Reported* Type Description Date Medical History GERD Medical History depression Medical History bi-polar Medical History herniated disc Medical History pituitary microadenoma 3 mm Medical History migraines Medical History Fibromyalgia Surgical History cholecystectomy 2007 Surgical History bilat carpal tunnel Surgical History Procedure:Gall Bladder 2008 Surgical History diskectomy x's 2 Surgical History Procedure:Back surgery 2011, 20 13 Surgical History 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 Hospitalization History CHILD X'S 2 Hospitalization History SEE ABOVE SURGERY [employer] Other Reason for referral (narrative)* Diagnostic Procedure [...] GI SINGLE CONTRAST RADIOLOGIC EXAM [facility] GI TRC SINGLE CONTRAST STUDY Jayshree Huffman, KRISH [address] [place] [address] Xr Imaging Referral ID Status Reason Start Date Expiration Date Visits Requested Visits Authorized [id number] Pending Review Auto-Generat ed Referral 09/23/2021 10/23/2022 [...] 12 LDS W/I&R Jayshree Huffman APRN.CNP [address] [place] [address] [facility] [address] [place] [address] Referral ID Status Reason Start Date Expiration Date Visits Requested Visits Authorized [id number] Pending Review Auto-Generat ed Referral 09/23/2021 09/23/2022 1 1 [facility] for referral (narrative)* Outpatient Procedure (Routine) - Closed Specialty Diagnoses / Procedures Referred By [facility] Referred To Contact [facility] Diagnoses TONEY on CPAP Gastroesophageal reflux disease, unspecified whether esophagitis present S/P laparoscopic sleeve gastrectomy Procedures EGD DIAGNOSTIC ESOPHAGOGASTRODUODENOSCO PY TRANSORAL DIAGNOSTIC Jayshree Huffman APRN.CNP [address] [place] [address] [place] [id number] Referral ID Status Reason Start Date Expiration Date V isits Requested Visits Authorized [id number] Closed Auto-Generate d Referral 09/24/2021 09/24/2022 1 1 [facility] for referral (narrative)* Outpatient Procedure (Routine) - Pending Review Specialty Diagnoses / Procedures Referred By [facility] Referred [facility] Contact [facility] Diagnoses Abnormal weight gain Preop testing Snoring Sleep-disordered breathing Fatigue, unspecified type S/P bariatric surgery BMI 70 and over, adult (HCC) Procedures ECG COMPLETE ECG ROUTINE ECG W/LEAST 12 LDS W/I&R Amina Nieto MD [address] [place] [address] [facility] [address] [address] Referral ID Status Reason Start Date Expiration Date Visits Requested Visits Authorized [id number] Pending Review Auto-Generat ed Referral 06/04/2022 05/31/2023 1 1 * Consult, Test, Treat (Routine) - Authorized Specialty Diagnoses / Procedures [facility] Referred To Contact Diagnoses Abnormal weight gain Preop testing Snoring Sleep-disordered breathing Fatigue, unspecified type S/P bariatric surgery BMI 70 and over, adult ([facility]) Procedures CONSULT TO SLEEP MEDICINE - ADULT OFFICE/OUTPATIENT NEW HIGH MDM 60-74 MINUTES Amina Nieto MD [address] [place] [address] Referral ID Status Reason Start Date Expiration Date Visits Requested Visits Authorized [id number] Authorized PCP Requested Referral 06/04/2022 05/31/2023 1 1 [facility] for referral (narrative)* Outpatient Procedure (Routine) - Pending Review Specialty Diagnoses / Procedures Referred By Contac t Referred To Contact [facility] Diagnoses Pre-op evaluation Morbid obesity with body mass index of 60.0-69.9 in adult ([facility]) Gastroesophageal reflux disease, unspecified whether esophagitis present TONEY on CPAP Bipolar affective disorder, remission status unspecified ([facility]) Thrombocytosis Migraine without status migrainosus, not intractable, unspecified migraine type Procedures ECG COMPLETE ECG ROUTINE ECG W/LEAST 12 LDS W/I&R Shruti Alvarado CLINICAL NEUROPSYCHOLOGIST.BRAND DESIGNER [address] [place] [address] [facility] [place] [address] Referral ID Status Reason Start Date Expiration Date Visits Requested Visits Authorized [id number] Pending Review Auto-Generat ed Referral 03/10/2023 03/09/2024 1 1 [facility] for visit Narrative* Outpatient Procedure (Routine) - Closed Specialty Diagnoses / Procedures Referred By Contraymond somers Referred To Contact [facility] Diagnoses TONEY on CPAP Gastroesophageal reflux disease, unspecified whether esophagitis present S/P laparoscopic sleeve gastrectomy Procedures EGD DIAGNOSTIC ESOPHAGOGASTRODUODENOSCO PY TRANSORAL DIAGNOSTIC Jayshree Huffman APRN.BRAND DESIGNER [address] [place] [address] [facility] [address] [place] [address] Referral ID Status Reason Start Date Expiration Date V isits Requested Visits Authorized [id number] Closed Auto-Generate d Referral 09/24/2021 09/24/2022 1 1 [facility] for visit Narrative* Rehabilitation - Outpatient (Routine) - Authorized Specialty Diagnoses / Procedures Referred By Tiarra t Referred To Contact Physical Therapy Diagnoses Low back pain, unspecified Procedures TN PHYSICAL THERAPY EVALUATION LOW COMPLEX 20 MINS Zohra Roberts MD [address] [place] [address] Phone: tel: fax: [facility] [address] [place] [address] Phone: tel: fax: Referral ID Status Reason Start Date Expiration Date V isits Requested Visits Authorized [id number] Authorized 02/23/2024 08/21/2024 30 30 [facility] [...] FoundDocuments on File Type Date Recorded Patient Dial Brusher Expl anation ACP-Advance Directive ACP-Power of Lay Out Former Latest Code Status on File Code Status Date Activated Date Inactivated Comments Full Code 01/16/2017 11:20 PM 01/21/2017 5:23 PM Documents on File Type Date Recorded Patient Dial Brusher Expl anation ACP-Advance Directive ACP-Power of Lay Out Former Latest Code Status on File Code Status Date Activated Date Inactivated Comments Full Code 01/16/2017 11:20 PM 01/21/2017 5:23 PM Documents on File Type Date Recorded Patient Dial Brusher Expl anation Advance Directive(s) 10/04/2015 12:43 PM Advance Directive(s) 09/25/2015 12:29 PM Documents on File Type Date Recorded Patient Dial Brusher Expl anation Advance Directive(s) 10/04/2015 12:43 PM Advance Directive(s) 09/25/2015 12:29 PM Advance Directive Response Recorded Date/ Time Advance Directives No Ayanna 11th, 2 019 3:58pm Reason for Referral Status Reason Specialty Diagnoses / Procedures Referre d By Contact Referred To Contact Open Radiology Diagnoses S/P laparoscopic sleeve gastrectomy Procedures FL UGI FL UGI Shaylee Miles DO [address] [place] [address] Specialty Diagnoses / Procedures Referred By Contac t Referred To Contact Diagnoses S/P laparoscopic sleeve gastrectomy Gastroesophageal reflux disease, unspecified whether esophagitis present Procedures XR FLUORO UPPER GI, WATER SOLUBLE AND/OR BARIUM CONTRAST Humza Walter MD [address] [place] [address] Referral ID Status Reason Start Date Expiration Date V isits Requested Visits Authorized [id number] Auth Not Needed 05/17/2021 06/11/2022 1 1 Specialty Diagnoses / Procedures Referred By Contac t Referred To Contact Diagnoses S/P laparoscopic sleeve gastrectomy TONEY on CPAP Morbid obesity with body mass index of 50 or higher Gastroesophageal reflux disease, unspecified whether esophagitis present Other intestinal malabsorption Procedures ECG Humza Walter MD [address] [place], [place] [id number] Referral ID Status Reason Start Date Expiration Date V isits Requested Visits Authorized [id number] New Request 05/17/2021 06/11/2022 1 1 Specialty Diagnoses / Procedures Referred By Contac t Referred To Contact Psychology Diagnoses S/P laparoscopic sleeve gastrectomy TONEY on CPAP Morbid obesity with body mass index of 50 or higher Gastroesophageal reflux disease, unspecified whether esophagitis present Other intestinal malabsorption Humza Walter MD [address] [place] [address] Referral ID Status Reason Start Date Expiration Date V isits Requested Visits Authorized [id number] New Request 05/17/2021 06/11/2022 1 1 Specialty Diagnoses / Procedures Referred By Contac t Referred To Contact Nutrition and Dietetics Diagnoses S/P laparoscopic sleeve gastrectomy TONEY on CPAP Morbid obesity with body mass index of 50 or higher Gastroesophageal reflux disease, unspecified whether esophagitis present Other intestinal malabsorption Humza Walter MD [address] [place] [address] Referral ID Status Reason Start Date Expiration Date V isits Requested Visits Authorized [id number] New Request 05/17/2021 06/11/2022 1 1 Specialty Diagnoses / Procedures Referred By Contac t Referred To Contact CT IMAGING Diagnoses History of sleeve gastrectomy Gastric fistula Procedures CT ABD/PEL W IVCON CT ABD & PEL[place] [address] [place] [address] Ct Imaging Referral ID Status Reason Start Date Expiration Date Visits Requested Visits Authorized [id number] Pending Review Auto-Generat ed Referral 11/04/2021 12/04/2022 1 1 Specialty Diagnoses / Procedures [facility] Referred To Contact XR IMAGING Diagnoses History of sleeve gastrectomy Gastric fistula Procedures XR UPPER GI SINGLE CONTRAST RADIOLOGIC EXAM UPR GI [place] [address] [place] [address] Xr Imaging Referral ID Status Reason Start Date Expiration Date Visits Requested Visits Authorized [id number] Pending Review Auto-Generat ed Referral 11/04/2021 12/04/2022 1 1 Referral ID Status Reason Start Date Expiration Date V isits Requested Visits Authorized [id number] Closed Auto-Generate d Referral 01/05/2022 06/28/2022 2 2 Specialty Diagnoses / Procedures [facility] Referred To Contact Diagnoses BMI 70 and over, adult (HCC) Gastroesophageal reflux disease, unspecified whether esophagitis present Procedures IN PERSON CONSULT TO PACC Jayshree Huffman APRN.KATTY [address] [place] [address] Referral ID Status Reason Start Date Expiration Date Visits Requested Visits Authorized [id number] Ref Not Required PCP Requested Referral 2 07/17/2022 1 1 Specialty Diagnoses / Procedures [facility] Referred To Contact Diagnoses BMI 60.0-69.9, adult (HCC) S/P bariatric surgery S/P biliopancreatic diversion with duodenal switch Prediabetes Amina Nieto MD [address] [place] [address] Referral ID Status Reason Start Date Expiration Date V isits Requested Visits Authorized [id number] Pending Review 04/19/2024 06/18/2024 1 1 Discharge Instructions * Instructions* AtchisonShaylee, DO - 04/06/2020 POST-ENDOSCOPY INSTRUCTIONS 1. ACTIVITY [...] questions, PLEASE call your doctor or the [facility] center at documented in this [...] section and content) DATE CREATED AUTHOR 12/23/2017 [facility] DATE CREATED AUTHOR AUTHOR'S ORGANIZ ATION 03/29/2020 [facility] DATE CREATED AUTHOR AUTHOR'S ORGANIZ ATION 04/07/2020 [facility] DATE CREATED AUTHOR AUTHOR'S ORGANIZ ATION 04/11/2020 [facility] DATE CREATED AUTHOR AUTHOR'S ORGANIZ ATION 10/01/2021 [facility] DATE CREATED AUTHOR AUTHOR'S ORGANIZ ATION 12/11/2021 [facility] DATE CREATED AUTHOR AUTHOR'S ORGANIZ ATION 02/19/2022 [facility] DATE CREATED AUTHOR AUTHOR'S ORGANIZ ATION 11/07/2022 [facility] DATE CREATED AUTHOR AUTHOR'S ORGANIZ ATION 12/15/2022 [facility] DATE CREATED AUTHOR AUTHOR'S ORGANIZ ATION 08/18/2023 [facility] DATE CREATED AUTHOR AUTHOR'S ORGANIZ ATION 05/16/2024 [facility] DATE CREATED AUTHOR AUTHOR'S ORGANIZ ATION 05/26/2024 [facility] DATE CREATED AUTHOR AUTHOR'S ORGANIZ ATION 05/27/2024 [facility] DATE CREATED AUTHOR AUTHOR'S ORGANIZ ATION 06/11/2024 [facility] DATE CREATED AUTHOR AUTHOR'S ORGANIZ ATION 07/13/2024 [facility] Reason for Visit (unrecogniz ed section and content) Status Reason Specialty Diagnoses / Procedures Re ferred By Contact Referred To Contact Diagnoses Obesity OBESITY Procedures TN ESOPHAGOGASTRODUODENOSCOPY TRANSORAL DIAGNOSTIC EGD ESOPHAGOGASTRODUODENOSCOPY Kylah Vargas, [address] [address] [facility] Reason Comments Consult Est Care/Revision/ S leeve 05/2017 Reason Comments Obesity GERD Reason Onset Date Comments Reassessment 11/04/2021 Patient Education 11/04/2021 Reason Comments New Patient Reason Comments No Show Reason Onset Date Comments Reassessment 01/17/2022 Patient Education 01/17/2022 Specialty Diagnoses / Procedures Referred By Tiarra somers Referred To Contact Nutrition / GENERAL SURGERY Diagnoses Follow-up exam OrangePurple/0 diet/[place]/05/2017 LSG-complications gerd Procedures PHYS/QHP TELEPHONE EVALUATION 5-10 MIN VIDEO GROUP (ZOOM) MD Yodit Jason Erin, RD [address] [place] [address] Referral ID Status Reason Start Date Expiration Date Visits Re quested Visits Authorized [id number] Closed 01/17/2022 06/28/2022 1 1 Reason Comments Obesity Specialty Diagnoses / Procedures [facility] Referred To Contact General Surgery / GENERAL SURGERY Diagnoses Follow-up exam imaging follow up Procedures PHYS/QHP TELEPHONE EVALUATION 5-10 [place] [address] [place] [address] [place] [address] [place] [address] Referral ID Status Reason Start Date Expiration Date Visits Re quested Visits Authorized [id number] Closed 01/20/2022 06/28/2022 1 1 Specialty Diagnoses / Procedures [facility] Referred To Contact CT IMAGING Diagnoses History of sleeve gastrectomy Gastric fistula Procedures CT ABD/PEL W IVCON CT ABD & PEL[place] [address] [place] [address] Ct Imaging Referral ID Status Reason Start Date Expiration Date V isits Requested Visits Authorized [id number] Closed Auto-Generate d Referral 01/05/2022 06/28/2022 2 [...] Specialty Diagnoses / Procedures [facility] Referred To Contact Diagnoses Abnormal weight gain Preop testing Snoring Sleep-disordered breathing Fatigue, unspecified type S/P bariatric surgery BMI 70 and over, adult (HCC) Procedures CONSULT TO SLEEP MEDICINE - ADULT OFFICE/OUTPATIENT [facility] 60-74 MINUTES Amnia Nieto MD [address] [place] [address] Referral ID Status Reason Start Date Expiration Date V isits Requested Visits Authorized [id number] Closed PCP Requested Referral 06/04/2022 05/31/2023 1 1 Reason Comments Anesthesia Consult Specialty Diagnoses / Procedures Referred By Contac t Referred To Contact ANESTHESIOLOGY Diagnoses Preop examination Procedures PREOP ANES OR PROXY B/4 Joe Berger MD [address] [place] [id number] Pre [facility] Main [address] [place] [address] Referral ID Status Reason Start Date Expiration Date V isits Requested Visits Authorized [id number] Authorized 06/29/2022 06/28/2023 99 99 Reason Comments Patient Left Without Being Seen Specialty Diagnoses / Procedures Referred By Fabianaac t Referred To Contact ANESTHESIOLOGY Diagnoses Preop examination Procedures PREOP ANES OR PROXY B/4 Joe Berger MD [address] [place] [address] Pre [facility] Main [address] [place] [address] Reason Comments Post Op Reason Comments Post Op 7-10 day gastrectomy Reason Comments Post Op S/p BPD/DS 08/04/23 Reason Comments Follow Up Weight Loss Surgery Reason Comments Refill Request Specialty Diagnoses / Procedures Referred By Fabianaac t Referred To Contact Physical Therapy Diagnoses Low back pain, unspecified Procedures TN PHYSICAL THERAPY EVALUATION LOW COMPLEX 20 MINS Zohra Roberts MD [address] [place] [address] [address] [facility] [address] [place] [address] Referral ID Status Reason Start Date Expiration Date V isits Requested Visits Authorized [id number] Authorized 02/23/2024 08/21/2024 30 30 Reason Onset [...] call from school and needed to go shredder picker her daughter and take to ER. She said she will be here next week for PT. Reason Comments Follow-up Reason Onset Date Comments CX PT today 03/10/2024 She called karlene read having health issues and unable to make PT today; I reminded of PT 03/15 and she said if unable she'll contact. Reason Comments right side pelvic pain Care Teams (unrecognized sec tion and content) Dialysis Rn Relationship Specialty Start Date End Date Elizabet Simental DO [address] [place] [address] PCP - General Family Medicine 03/21/21 Dialysis Rn Relationship Specialty Start Date End Date Rosaura Estrada, BRAND DESIGNER [address] [place] [address] PCP - General Family Practice 10/01/11 Dialysis Rn Relationship Specialty Start Date End Date [facility] BRAND DESIGNER [address] [place] [address] PCP - General Family Practice 10/01/11 Dialysis Rn Relationship Specialty Start Date End Date Rosaura Estrada, BRAND DESIGNER [address] [place] [address] PCP - General Family Practice 10/01/11 Dialysis Rn Relationship Specialty Start Date End Date Rosaura Estrada, BRAND DESIGNER [address] [place] [address] PCP - General Family Practice 10/01/11 Dialysis Rn Relationship Specialty Start Date End Date Rosaura Estrada, BRAND DESIGNER [address] [place] [address] PCP - General Family Practice 10/01/11 Dialysis Rn Relationship Specialty Start Date End Date [facility] BRAND DESIGNER [address] [place] [address] PCP - General Family Practice 10/01/11 Dialysis Rn Relationship Specialty Start Date End Date Rosaura Estrada, BRAND DESIGNER [address] [place] [address] PCP - General Family Practice 10/01/11 Dialysis Rn Relationship Specialty Start Date End Date [facility] BRAND DESIGNER [address] [place] [address] PCP - General Family Practice 10/01/11 Dialysis Rn Relationship Specialty Start Date End Date [facility] BRAND DESIGNER [address] [place] [address] PCP - General Family Practice 10/01/11 Dialysis Rn Relationship Specialty Start Date End Date LucasRosaura mauro, BRAND DESIGNER [address] [place] [address] PCP - General Family Practice 10/01/11 Dialysis Rn Relationship Specialty Start Date End Date Rosaura Estrada, BRAND DESIGNER [address] [place] [address] PCP - General Family Practice 10/01/11 Dialysis Rn Relationship Specialty Start Date End Date LucasRosaura mauro, BRAND DESIGNER [address] [place] [address] PCP - General Family Medicine 10/01/11 Team Status: Inactive Member Role Status Dates NON STAFF Primary Care Provider Active ROBERT Monteiro Attending Provider Active Team Status: Active Member Role Status Dates NON STAFF Primary Care Provider Active Dialysis Rn Relationship Specialty Start Date End Date Kaylin Simentalty [address] [place] [address] PCP - General Family Medicine 04/16/22 Dialysis Rn Relationship Specialty Start Date End Date RumKaylin gandaraty [address] [place] [address] PCP - General Family Medicine 04/16/22 Dialysis Rn Relationship Specialty Start Date End Date RumschKaylin brookety [address] [place] [address] PCP - General Family Medicine 04/16/22 Dialysis Rn Relationship Specialty Start Date End Date RumschKaylin brookety [address] [place] [address] PCP - General Family Medicine 04/16/22 Dialysis Rn Relationship Specialty Start Date End Date RumKaylin gandaraty [address] [place] [address] PCP - General Family Medicine 04/16/22 Dialysis Rn Relationship Specialty Start Date End Date Elizabet Simental [address] [place] [address] PCP - General Family Medicine 04/16/22 Dialysis Rn Relationship Specialty Start Date End Date Kaylin Simentalty [address] [place] [address] PCP - General Family Medicine 04/16/22 Dialysis Rn Relationship Specialty Start Date End Date RumschKaylin brookety [address] [place] [address] PCP - General Family Medicine 04/16/22 Dialysis Rn Relationship Specialty Start Date End Date Elizabet Simental [address] [place] [address] PCP - General Family Medicine 04/16/22 Dialysis Rn Relationship Specialty Start Date End Date Rumschlag, Elizabet [address] [place] [address] PCP - General Family Medicine 04/16/22 Dialysis Rn Relationship Specialty Start Date End Date Rumschlag, Elizabet [address] [place] [address] PCP - General Family Medicine 04/16/22 Dialysis Rn Relationship Specialty Start Date End Date Rumschlag, Elizabet [address] [place] [address] PCP - General Family Medicine 04/16/22 Dialysis Rn Relationship Specialty Start Date End Date Rumschlag, Elizabet [address] [place] [address] PCP - General Family Medicine 04/16/22 Dialysis Rn Relationship Specialty Start Date End Date Rumschlag, Elizabet, DO [address] [place] [address] PCP - General Family Medicine 04/16/22 Dialysis Rn Relationship Specialty Start Date End Date Rumschlag, Elizabet, DO [address] [place] [address] PCP - General Family Medicine 04/16/22 Dialysis Rn Relationship Specialty Start Date End Date Rumschlag, Elizabet, DO [address] [place] [address] PCP - General Family Medicine 04/16/22 Dialysis Rn Relationship Specialty Start Date End Date Rumschlag, Elizabet, DO [address] [place] [address] PCP - General Family Medicine 04/16/22 Dialysis Rn Relationship Specialty Start Date End Date Rumschlag, Elizabet, DO [address] [place] [address] PCP - General Family Medicine 04/16/22 Dialysis Rn Relationship Specialty Start Date End Date Rumschlag, Elizabet, DO [address] [place] [address] PCP - General Family Medicine 04/16/22 Dialysis Rn Relationship Specialty Start Date End Date Rumschlag, Elizabet, DO [address] [place] [address] PCP - General Family Medicine 04/16/22 Dialysis Rn Relationship Specialty Start Date End Date Rumschlag, Elizabet, DO [address] [place] [address] PCP - General Family Medicine 04/16/22 Dialysis Rn Relationship Specialty Start Date End Date Rumschlag, Elizabet, DO [address] [place] [address] PCP - General Family Medicine 04/16/22 Dialysis Rn Relationship Specialty Start Date End Date Rumschlag, Elizabet, DO [address] [place] [address] PCP - General Family Medicine 04/16/22 Dialysis Rn Relationship Specialty Start Date End Date Rumschlag, Elizabet, DO [address] [place] [address] PCP - General Family Medicine 3/20/24 Kromer, Shaylee PCP - [facility] 12/28/23 Dialysis Rn Relationship Specialty Start Date End Date Rumschlag, Elizabet, DO [address] [place] [address] PCP - General Family Medicine 09/16/23 Kromer, Shaylee PCP - [facility] [place] [facility] 12/28/23 Dialysis Rn Relationship Specialty Start Date End Date Rumschlag, Elizabet, DO [address] [place] [address] PCP - General Family Medicine 09/16/23 Kromer, Shaylee PCP - [facility] [place] [facility] 12/28/23 Dialysis Rn Relationship Specialty Start Date End Date Rumschlag, Elizabet, DO [address] [place] [address] PCP - General Family Medicine 09/16/23 Kromer, Shaylee PCP - [facility] [place] [facility] 12/28/23 Dialysis Rn Relationship Specialty Start Date End Date Rumschlag, Elizabet, DO [address] [place] [address] PCP - General Family Medicine 09/16/23 Kromer, Shaylee PCP - [facility] [place] [facility] 12/28/23 Dialysis Rn Relationship Specialty Start Date End Date Rumschlag, Elizabet, DO [address] [place] [address] PCP - General Family Medicine 09/16/23 Kromer, Shaylee PCP - [facility] [place] [facility] 12/28/23 Dialysis Rn Relationship Specialty Start Date End Date Rumschlag, Elizabet, DO [address] [place] [address] PCP - General Family Medicine 09/16/23 Kromer, Shaylee PCP - [facility] 12/28/23 Dialysis Rn Relationship Specialty Start Date End Date Rumschlag, Elizabet, DO [address] [place] [address] PCP - General Family Medicine 09/16/23 Kromer, Shaylee PCP - [facility] [place] 12/28/23 Dialysis Rn Relationship Specialty Start Date End Date Rumschlag, Elizabet, DO [address] [place] [address] PCP - General Family Medicine 09/16/23 Kromer, Shaylee PCP - [facility] [place] [facility] 12/28/23 Dialysis Rn Relationship Specialty Start Date End Date Rumschlag, Elizabet, DO [address] [place] [address] PCP - General Family Medicine 04/16/22 Dialysis Rn Relationship Specialty Start Date End Date Rumschlag, Elizabet, DO [address] [place] [address] PCP - General Family Medicine 09/16/23 Kromer, Shaylee PCP - [facility] [place] [facility] 12/28/23 Dialysis Rn Relationship Specialty Start Date End Date Rumschlag, Elizabet, DO [address] [place] [address] PCP - General Family Medicine 09/16/23 Kromer, Shaylee PCP - [facility] 12/28/23 Dialysis Rn Relationship Specialty Start Date End Date Rumschlag, Elizabet, DO [address] [place] [address] PCP - General Family Medicine 04/16/22 Dialysis Rn Relationship Specialty Start Date End Date Rumschlag, Elizabet, DO [address] [place] [address] PCP - General Family Medicine 09/16/23 Dialysis Rn Relationship Specialty Start Date End Date Rumschlag, Elizabet, DO [address] [place] [address] PCP - General Family Medicine 09/16/23 Dialysis Rn Relationship Specialty Start Date End Date Rumschlag, Elizabet, DO [address] [place] [address] PCP - General Family Medicine 09/16/23 Dialysis Rn Relationship Specialty Start Date End Date Rumschlag, Elizabet, DO [address] [place] [address] PCP - General Family Medicine 09/16/23 Dialysis Rn Relationship Specialty Start Date End Date Rumschlag, Elizabet, DO [address] [place] [address] PCP - General Family Medicine 09/16/23 Dialysis Rn Relationship Specialty Start Date End Date Rumschlag, Elizabet, DO [address] [place] [address] PCP - General Family Medicine 09/16/23 Shaylee Kendall PCP - [facility] [place] [facility] 12/28/23 Dialysis Rn Relationship Specialty Start Date End Date Elizabet Simental DO [address] [facility] [address] PCP - General Family Medicine 09/16/23 Shaylee Kendall PCP - [facility] [place] [facility] 12/28/23 Source Comments (unrecognize d section and content) In the event this informatio n is protected by the Federal Confidentiality of Alcohol and Drug Abuse Patient Records regulations: The Federal rules restrict any use of the information to criminally investigate or prosecute any alcohol or drug abuse patient.[facility] HospitalIn the event this information is protected by the Federal Confidentiality of Alcohol and Drug Abuse Patient Records regulations: The Federal rules restrict any use of the information to criminally investigate or prosecute any alcohol or drug abuse patient.[facility] HospitalIn the event this information is protected by the Federal Confidentiality of Alcohol and Drug Abuse Patient Records regulations: The Federal rules restrict any use of the information to criminally investigate or prosecute any alcohol or drug abuse patient.[facility] HospitalIn the event this information is protected by the Federal Confidentiality of Alcohol and Drug Abuse Patient Records regulations: The Federal rules restrict any use of the information to criminally investigate or prosecute any alcohol or drug abuse patient.[facility] HospitalIn the event this information is protected by the Federal Confidentiality of Alcohol and Drug Abuse Patient Records regulations: The Federal rules restrict any use of the information to criminally investigate or prosecute any alcohol or drug abuse patient.[facility] HospitalIn the event this information is protected by the Federal Confidentiality of Alcohol and Drug Abuse Patient Records regulations: The Federal rules restrict any use of the information to criminally investigate or prosecute any alcohol or drug abuse patient.[facility] HospitalIn the event this information is protected by the Federal Confidentiality of Alcohol and Drug Abuse Patient Records regulations: The Federal rules restrict any use of the information to criminally investigate or prosecute any alcohol or drug abuse patient.[facility] HospitalIn the event this information is protected by the Federal Confidentiality of Alcohol and Drug Abuse Patient Records regulations: The Federal rules restrict any use of the information to criminally investigate or prosecute any alcohol or drug abuse patient.[facility] HospitalIn the event this information is protected by the Federal Confidentiality of Alcohol and Drug Abuse Patient Records regulations: The Federal rules restrict any use of the information to criminally investigate or prosecute any alcohol or drug abuse patient.[facility] HospitalIn the event this information is protected by the Federal Confidentiality of Alcohol and Drug Abuse Patient Records regulations: The Federal rules restrict any use of the information to criminally investigate or prosecute any alcohol or drug abuse patient.[facility] HospitalIn the event this information is protected by the Federal Confidentiality of Alcohol and Drug Abuse Patient Records regulations: The Federal rules restrict any use of the information to criminally investigate or prosecute any alcohol or drug abuse patient.[facility] HospitalIn the event this information is protected by the Federal Confidentiality of Alcohol and Drug Abuse Patient Records regulations: The Federal rules restrict any use of the information to criminally investigate or prosecute any alcohol or drug abuse patient.[facility] HospitalIn the event this information is protected by the Federal Confidentiality of Alcohol and Drug Abuse Patient Records regulations: The Federal rules restrict any use of the information to criminally investigate or prosecute any alcohol or drug abuse patient.[facility] HospitalIn the event this information is protected by the Federal Confidentiality of Alcohol and Drug Abuse Patient Records regulations: The Federal rules restrict any use of the information to criminally investigate or prosecute any alcohol or drug abuse patient.[facility] HospitalIn the event this information is protected by the Federal Confidentiality of Alcohol and Drug Abuse Patient Records regulations: The Federal rules restrict any use of the information to criminally investigate or prosecute any alcohol or drug abuse patient.[facility] HospitalIn the event this information is protected by the Federal Confidentiality of Alcohol and Drug Abuse Patient Records regulations: The Federal rules restrict any use of the information to criminally investigate or prosecute any alcohol or drug abuse patient.[facility] HospitalIn the event this information is protected by the Federal Confidentiality of Alcohol and Drug Abuse Patient Records regulations: The Federal rules restrict any use of the information to criminally investigate or prosecute any alcohol or drug abuse patient.[facility] HospitalIn the event this information is protected by the Federal Confidentiality of Alcohol and Drug Abuse Patient Records regulations: The Federal rules restrict any use of the information to criminally investigate or prosecute any alcohol or drug abuse patient.[facility] HospitalIn the event this information is protected by the Federal Confidentiality of Alcohol and Drug Abuse Patient Records regulations: The Federal rules restrict any use of the information to criminally investigate or prosecute any alcohol or drug abuse patient.[facility] HospitalIn the event this information is protected by the Federal Confidentiality of Alcohol and Drug Abuse Patient Records regulations: The Federal rules restrict any use of the information to criminally investigate or prosecute any alcohol or drug abuse patient.[facility] HospitalIn the event this information is protected by the Federal Confidentiality of Alcohol and Drug Abuse Patient Records regulations: The Federal rules restrict any use of the information to criminally investigate or prosecute any alcohol or drug abuse patient.[facility] HospitalIn the event this information is protected by the Federal Confidentiality of Alcohol and Drug Abuse Patient Records regulations: The Federal rules restrict any use of the information to criminally investigate or prosecute any alcohol or drug abuse patient.[facility] HospitalIn the event this information is protected by the Federal Confidentiality of Alcohol and Drug Abuse Patient Records regulations: The Federal rules restrict any use of the information to criminally investigate or prosecute any alcohol or drug abuse patient.[facility] HospitalIn the event this information is protected by the Federal Confidentiality of Alcohol and Drug Abuse Patient Records regulations: The Federal rules restrict any use of the information to criminally investigate or prosecute any alcohol or drug abuse patient.[facility] HospitalIn the event this information is protected by the Federal Confidentiality of Alcohol and Drug Abuse Patient Records regulations: The Federal rules restrict any use of the information to criminally investigate or prosecute any alcohol or drug abuse patient.[facility] HospitalIn the event this information is protected by the Federal Confidentiality of Alcohol and Drug Abuse Patient Records regulations: The Federal rules restrict any use of the information to criminally investigate or prosecute any alcohol or drug abuse patient.[facility] HospitalIn the event this information is protected by the Federal Confidentiality of Alcohol and Drug Abuse Patient Records regulations: The Federal rules restrict any use of the information to criminally investigate or prosecute any alcohol or drug abuse patient.[facility] HospitalIn the event this information is protected by the Federal Confidentiality of Alcohol and Drug Abuse Patient Records regulations: The Federal rules restrict any use of the information to criminally investigate or prosecute any alcohol or drug abuse patient.[facility] HospitalIn the event this information is protected by the Federal Confidentiality of Alcohol and Drug Abuse Patient Records regulations: The Federal rules restrict any use of the information to criminally investigate or prosecute any alcohol or drug abuse patient.[facility] HospitalIn the event this information is protected by the Federal Confidentiality of Alcohol and Drug Abuse Patient Records regulations: The Federal rules restrict any use of the information to criminally investigate or prosecute any alcohol or drug abuse patient.[facility] HospitalIn the event this information is protected by the Federal Confidentiality of Alcohol and Drug Abuse Patient Records regulations: The Federal rules restrict any use of the information to criminally investigate or prosecute any alcohol or drug abuse patient.[facility] HospitalIn the event this information is protected by the Federal Confidentiality of Alcohol and Drug Abuse Patient Records regulations: The Federal rules restrict any use of the information to criminally investigate or prosecute any alcohol or drug abuse patient.[facility] HospitalIn the event this information is protected by the Federal Confidentiality of Alcohol and Drug Abuse Patient Records regulations: The Federal rules restrict any use of the information to criminally investigate or prosecute any alcohol or drug abuse patient.[facility] HospitalIn the event this information is protected by the Federal Confidentiality of Alcohol and Drug Abuse Patient Records regulations: The Federal rules restrict any use of the information to criminally investigate or prosecute any alcohol or drug abuse patient.[facility] HospitalIn the event this information is protected by the Federal Confidentiality of Alcohol and Drug Abuse Patient Records regulations: The Federal rules restrict any use of the information to criminally investigate or prosecute any alcohol or drug abuse patient.[facility] HospitalIn the event this information is protected by the Federal Confidentiality of Alcohol and Drug Abuse Patient Records regulations: The Federal rules restrict any use of the information to criminally investigate or prosecute any alcohol or drug abuse patient.[facility] HospitalIn the event this information is protected by the Federal Confidentiality of Alcohol and Drug Abuse Patient Records regulations: The Federal rules restrict any use of the information to criminally investigate or prosecute any alcohol or drug abuse patient.[facility] HospitalIn the event this information is protected by the Federal Confidentiality of Alcohol and Drug Abuse Patient Records regulations: The Federal rules restrict any use of the information to criminally investigate or prosecute any alcohol or drug abuse patient.[facility] HospitalIn the event this information is protected by the Federal Confidentiality of Alcohol and Drug Abuse Patient Records regulations: The Federal rules restrict any use of the information to criminally investigate or prosecute any alcohol or drug abuse patient.[facility] HospitalIn the event this information is protected by the Federal Confidentiality of Alcohol and Drug Abuse Patient Records regulations: The Federal rules restrict any use of the information to criminally investigate or prosecute any alcohol or drug abuse patient.[facility] HospitalIn the event this information is protected by the Federal Confidentiality of Alcohol and Drug Abuse Patient Records regulations: The Federal rules restrict any use of the information to criminally investigate or prosecute any alcohol or drug abuse patient.[facility] HospitalIn the event this information is protected by the Federal Confidentiality of Alcohol and Drug Abuse Patient Records regulations: The Federal rules restrict any use of the information to criminally investigate or prosecute any alcohol or drug abuse patient.[facility] Goals (unrecognized section and content) [...] BE BASED ON THE PRIMARY CLINICAL RECORDS. [facility] [employer] [facility]. provides no warranty or guarantee of the accuracy or completeness of information in this document.
--- NOTE | 2024-07-16 15:48 | ED_ITS ---
HPI - Abdominal Pain General Chief Complaint: Abdominal Pain Stated Complaint: ABDOMINAL PAIN Time Seen by Provider: 07/16/24 15:14 Source: patient Mode of arrival: walk-in History of Present Illness HPI narrative: Patient presents to ED complaining of abdominal pain. Patient has chronic abdominal pain and she has been dealing with an ovarian cyst that is been giving her issues. She states she has had some upper abdominal pain and nausea. She has history of a gastric sleeve. She states she also has a right ovarian cyst that was diagnosed recently. She was just here couple of weeks ago for the same exact thing and had a CT scan that showed nothing acute per patient. She does not have any Zofran ODT but prefers that over the tablets. She also is out of pain medication and she has been in pain. No fever, heart rate normal blood pressure normal. Oxygen saturation normal. She states that she cannot really get rid of her nausea. Normal bowel movements. No vomiting here. Patient was ambulatory in the ED to the bathroom and back. She becomes winded most likely due to body habitus but does not appear to be in any acute distress and that calms down when she rests back in the bed. Patient came in with her son who is also being worked up for abdominal pain. Related Data Home Medications ?Medication ?Instructions ?Recorded ?Confirmed aripiprazole 10 mg tablet 15 mg PO DAILY 12/13/22 10/02/23 buspirone 15 mg tablet 15 mg PO BID 12/13/22 10/02/23 cetirizine 10 mg tablet 10 mg PO DAILY 12/13/22 10/02/23 duloxetine 60 mg capsule,delayed 60 mg PO DAILY 12/13/22 10/02/23 release famotidine 20 mg tablet 20 mg PO Q12H PRN GI 12/13/22 10/02/23 hydroxyzine pamoate 50 mg capsule 50 mg PO DAILY PRN sleep 12/13/22 10/02/23 lamotrigine 100 mg tablet 100 mg PO DAILY 12/13/22 10/02/23 montelukast 10 mg tablet 10 mg PO DAILY 12/13/22 10/02/23 omeprazole 40 mg capsule,delayed 40 mg PO DAILY 12/13/22 10/02/23 release pantoprazole 40 mg tablet,delayed 40 mg PO DAILY GI 12/13/22 10/02/23 release propranolol 60 mg tablet 60 mg PO Q12H 12/13/22 10/02/23 hydrochlorothiazide 12.5 mg tablet 12.5 mg PO QDAY 10/02/23 10/02/23 rizatriptan 10 mg disintegrating 10 mg PO Q2H PRN migraine headache 10/02/23 10/02/23 tablet Previous Rx's ?Medication ?Instructions ?Recorded hydrocodone 5 mg-acetaminophen 325 1 tab PO Q6H PRN pain 5 days #20 03/12/24 mg tablet tabs meloxicam 15 mg tablet 15 mg PO DAILY PRN pain #7 tabs 03/26/24 orphenadrine citrate 100 mg 100 mg PO ONCE PRN muscle spasm #7 03/26/24 tablet,extended release tabs dicyclomine 20 mg tablet 20 mg PO TID PRN abdominal pain 2 05/15/24 days #6 tabs ibuprofen 600 mg tablet 600 mg PO TID PRN pain #30 tabs 05/15/24 ondansetron HCl 4 mg tablet 4 mg PO Q6H PRN nausea and 05/15/24 vomiting #12 tabs ketorolac 10 mg tablet 10 mg PO Q8H PRN pain 1 day #10 07/01/24 tabs ondansetron 4 mg disintegrating 4 mg PO Q8H PRN nausea and 07/01/24 tablet vomiting 43 days #10 tabs hydrocodone 5 mg-acetaminophen 325 1 tab PO Q6H PRN pain #14 tabs 07/16/24 mg tablet ondansetron 4 mg disintegrating 4 mg PO Q6H PRN nausea and 07/16/24 tablet vomiting #20 tabs Allergies Allergy/AdvReac Type Severity Reaction Status Date / Time adhesive tape Allergy Rash Verified 12/13/22 22:40 cephalexin (From Keflex) Allergy Rash Verified 12/13/22 22:40 Penicillins Allergy Rash Verified 12/13/22 22:40 amoxicillin (From Augmentin) AdvReac Gastrointestinal Verified 12/13/22 22:38 Upset clavulanic acid (From AdvReac Gastrointestinal Verified 12/13/22 22:38 Augmentin) Upset tramadol (From Ultram) AdvReac Gastrointestinal Verified 12/13/22 22:40 Upset Review of Systems ROS Status of ROS 10 or more systems reviewed and unremark able except as noted in history and below [facility] Medical History (Updated 07/16/24 @ 15:43 by Betty Moreno DO) Ulnar neuropathy ?G56.20 - Lesion of ulnar nerve, unspecified upper limb (ICD-10) Anemia ?D64.9 - Anemia, unspecified (ICD-10) Insomnia ?G47.00 - Insomnia, unspecified (ICD-10) PTSD (post-traumatic stress disorder) ?F43.10 - Post-traumatic stress disorder, unspecified (ICD-10) Panic attacks ?F41.0 - Panic disorder [episodic paroxysmal anxiety] (ICD-10) Anxiety ?F41.9 - Anxiety disorder, unspecified (ICD-10) Depression ?F32.A - Depression, unspecified (ICD-10) COVID-19 ?U07.1 - COVID-19 (ICD-10) Migraine ?G43.909 - Migraine, unspecified, not intractable, without status migrainosus (ICD-10) Kidney stones ?N20.0 - Calculus of kidney (ICD-10) Heartburn ?R12 - Heartburn (ICD-10) Hypertension ?I10 - Essential (primary) hypertension (ICD-10) Sleep apnea ?G47.30 - Sleep apnea, unspecified (ICD-10) Pituitary tumor ?D49.7 - Neoplasm of unspecified behavior of endocrine glands and other parts of nervous system (ICD-10) GERD (gastroesophageal reflux disease) ?K21.9 - Gastro-esophageal reflux disease without esophagitis (ICD-10) Eczema ?L30.9 - Dermatitis, unspecified (ICD-10) Chronic back pain ?M54.9 - Dorsalgia, unspecified (ICD-10) ?G89.29 - Other chronic pain (ICD-10) Bipolar depression ?F31.9 - Bipolar disorder, unspecified (ICD-10) Retained intrauterine contraceptive device (IUD) ?T83.39XA - Other mechanical complication of intrauterine contraceptive device, initial encounter (ICD-10) Surgical History (Updated 10/02/23 @ 09:19 by Mariia Moscoso NP) History of esophagogastroduodenoscopy (EGD) ?Z98.890 - Other specified postprocedural states (ICD-10) 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 - Bariatric surgery status (ICD-10) History of tonsillectomy ?Z90.89 - Acquired absence of other organs (ICD-10) History of cholecystectomy ?Z90.49 - Acquired absence of other specified parts of digestive tract (ICD- 10) History of carpal tunnel release ?Z98.890 - Other specified postprocedural states (ICD-10) History of spinal surgery ?Z98.890 - Other specified postprocedural states (ICD-10) History of spinal surgery ?Z98.890 - Other specified postprocedural states (ICD-10) H/O splenectomy ?Z90.81 - Acquired absence of spleen (ICD-10) H/O laparoscopy ?Z98.890 - Other specified postprocedural states (ICD-10) H/O gastric sleeve ?Z90.3 - Acquired absence of stomach [part of] (ICD-10) Family History (Updated 10/02/23 @ 09:19 by Mariia Moscoso NP) Other Family history of diabetes mellitus Family history of hypertension Family history of myocardial infarction Lymphoma Social History (Updated 10/02/23 @ 09:14 by Mariia Moscoso NP) Within the past year, how often did you have a drink containing alcohol: never Score interpretation: A score less than 3 is consistent with normal alcohol consumption. Smoking status: Former smoker Non-prescribed substance use: denies use Highest level of school completed/degree received: Associate degree: occupational, technical, vocational program Little interest or pleasure in doing things: not at all Feeling down, depressed, or hopeless: not at all Exam Narrative Exam Narrative: General: alert, no acute distress Cardiovascular: regular rate and rhythm, normal peripheral perfusion. Respiratory: Lungs CTA, respirations non labored. Extremities: no deformity, no trauma. Neurological: oriented x 4, LOC appropriate for age. Abdomen soft, mild epigastric tenderness and mild lower abdominal tenderness. No rebound no guarding. Normal bowel sounds. Obesity. Constitutional Vital Signs, click to edit/add: Last Vital Signs Temp 97.7 F 07/16/24 15:16 Pulse 88 07/16/24 15:16 Resp 18 07/16/24 15:16 BP 138/74 07/16/24 15:19 Pulse Ox 97 07/16/24 15:16 O2 Del Method Room Air 07/16/24 15:16 Course Vital Signs Vital signs: Vital Signs Temperature 97.7 F 07/16/24 15:16 Pulse Rate 88 01/18/25 15:16 Respiratory Rate 18 07/16/24 15:16 Pulse Oximetry 97 07/16/24 15:16 Oxygen Delivery Method Room Air 07/16/24 15:16 Temperature 97.7 F 07/16/24 15:16 Pulse Rate 88 07/16/24 15:16 Respiratory Rate 18 07/16/24 15:16 Blood Pressure 138/74 07/16/24 15:19 Pulse Oximetry 97 07/16/24 15:16 Oxygen Delivery Method Room Air 07/16/24 15:16 MDM - Abdominal Pain MDM Narrative Medical decision making narrative: Patient had a recent CT scan and no acute new abdominal pain. Normal vitals. She has had multiple CT scans in the past as well. She has an appointment with Dr. Harley this coming week for follow-up on the ovarian cyst. I do not think additional imaging is indicated today however if she gets worse please return to the emergency room. I think her issue is more pain control. Patient was given IM Toradol with an ODT Zofran and pain medication and ODT Zofran for home. Patient was very happy with this care plan and will return if anything worsens. Differential Diagnosis Differential diagnosis: Likely abdominal pain, calculus of kidney, constipation, diverticulitis, endometriosis, gastroenteritis and small bowel obstruction Discharge Plan Discharge Chief Complaint: Abdominal Pain Clinical Impression: Abdominal pain, Nausea Patient Disposition: Home, Self-Care Time of Disposition Decision: 15:43 Condition: Good Mode of Transportation: Private Vehicle Prescriptions / Home Meds: New ondansetron 4 mg tablet,disintegrating 4 mg PO Q6H PRN (Reason: nausea and vomiting) Qty: 20 0RF hydrocodone-acetaminophen 5-325 mg tablet 1 tab PO Q6H PRN (Reason: pain) Qty: 14 0RF No Action rizatriptan 10 mg tablet,disintegrating 10 mg PO Q2H PRN (Reason: migraine headache) hydrochlorothiazide 12.5 mg tablet 12.5 mg PO QDAY hydrocodone-acetaminophen 5-325 mg tablet 1 tab PO Q6H PRN (Reason: pain) 5 Days Qty: 20 0RF meloxicam 15 mg tablet 15 mg PO DAILY PRN (Reason: pain) Qty: 7 0RF orphenadrine citrate 100 mg tablet extended release 100 mg PO ONCE PRN (Reason: muscle spasm) Qty: 7 0RF ondansetron 4 mg tablet,disintegrating 4 mg PO Q8H PRN (Reason: nausea and vomiting) 43 Days Qty: 10 0RF ketorolac 10 mg tablet 10 mg PO Q8H PRN (Reason: pain) 1 Days Qty: 10 0RF aripiprazole 10 mg tablet 15 mg PO DAILY Patient Comments: HS buspirone 15 mg tablet 15 mg PO BID cetirizine 10 mg tablet 10 mg PO DAILY duloxetine 60 mg capsule,delayed release(DR/EC) 60 mg PO DAILY famotidine 20 mg tablet 20 mg PO Q12H PRN (Reason: GI) hydroxyzine pamoate 50 mg capsule 50 mg PO DAILY PRN (Reason: sleep) lamotrigine 100 mg tablet 100 mg PO DAILY montelukast 10 mg tablet 10 mg PO DAILY omeprazole 40 mg capsule,delayed release(DR/EC) 40 mg PO DAILY pantoprazole 40 mg tablet,delayed release (DR/EC) 40 mg PO DAILY propranolol 60 mg tablet 60 mg PO Q12H ondansetron HCl 4 mg tablet 4 mg PO Q6H PRN (Reason: nausea and vomiting) Qty: 12 0RF ibuprofen 600 mg tablet 600 mg PO TID PRN (Reason: pain) Qty: 30 0RF dicyclomine 20 mg tablet 20 mg PO TID PRN (Reason: abdominal pain) 2 Days Qty: 6 0RF Print Language: Palestinian Instructions: Abdominal Pain (ED) Referrals: Lisa Roberts NP [Primary Care Provider] - 1 week
[2024-07-16] MEDS: ONDANSETRON 4 MG RAPDIS TABLET SL (15:56)
[2024-07-16] MEDS: KETOROLAC TROMETHAMINE 60 MG/2 ML VIAL IM (15:56)
[2024-07-16 16:14] LABS: Bilirubin Urine NEGATIVE (NEGATIVE); Blood Urine TRACE-L (NEGATIVE); Clarity Urine CLEAR (CLEAR); Color Urine LT. YELLOW (YELLOW); Glucose Urine UA NEGATIVE (NEGATIVE); Ketones Urine NEGATIVE (NEGATIVE); Leukocyte Esterase Urine SMALL (NEGATIVE); Nitrite Urine NEGATIVE (NEGATIVE); Protein Urine NEGATIVE (NEG/TRACE); Specific Gravity Urine 1.015 (1.005-1.025); pH Urine 7.5 (5.0-9.0)
[2024-07-16 16:39] LABS: Urine Microscopic Indicated YES
[2024-07-16 16:46] LABS: Bacteria Urine SMALL #/HPF (NONE SEEN); Mucus Urine NONE SEEN (NONE SEEN); RBC Urine 0-2 #/HPF (0-2); Squamous Epithelial Cell Urine FEW #/LPF (NONE/RARE); WBC Urine 0-2 #/HPF (NONE SEEN)
[2024-07-16 16:47] LABS: Urine Culture Indicated YES
== END 2024-07-16 15:59 | disposition home or self-care (01) ==
PROVIDERS: Emergency Provider Emergency Medicine; PCP Nurse Practitioner Family
DX: R10.9 Unspecified abdominal pain (principal); R11.0 Nausea; Z98.84 Bariatric surgery status; N83.201 Unspecified ovarian cyst, right side; Z90.49 Acquired absence of other specified parts of digestive tract; Z90.81 Acquired absence of spleen; Z87.891 Personal history of nicotine dependence
CPT/HCPCS: 81001; 87086; 96372; 99284; J1885; Q0162

== ENCOUNTER 2024-10-05 16:11 | Emergency (ER) | payer MEDICAID, SELFPAY ==
[2024-10-05 16:20] VITALS: BP 183/110; PULSE 93; TEMP 36.6; O2SAT 98; BMI 67.8
--- NOTE | 2024-10-05 16:51 | ED_ITS ---
Documented by User: MICHELLE Koenig 10/05/24 21:36 HPI HPI - General Adult General Chief complaint: Extremity Problem, Nontraumatic Stated complaint: SWELLING LEGS Time Seen by Provider: 10/05/24 16:11 Source: patient and family Mode of arrival: walk-in Limitations: no limitations History of Present Illness HPI narrative: Patient is a 39-year-old female who presents to the emergency department for multiple complaints. Patient is well-known to this emergency department. She is seen frequently for right lower quadrant pain related to history of ovarian cysts. She states 4 to 5 days ago she developed pain in the right lower quadrant. She has not had a previous appendectomy. She denies a possibility of . She states about 1 month ago and HAND[employer]CHIE[employer] C[employer]TER drained a cyst on her right ovary but did not remove the sac so she was told it may fill up again. She has not had any fevers or vomiting. She does report nausea. She states for the last 3 days her legs have been swollen. She reports that her feet are painful and swollen. No redness, wounds or drainage from the legs. Related Data Home Medications ?Medication ?Instructions ?Recorded ?Confirmed aripiprazole 10 mg tablet 15 mg PO DAILY 12/13/22 10/05/24 buspirone 15 mg tablet 15 mg PO BID 12/13/22 10/05/24 cetirizine 10 mg tablet 10 mg PO DAILY 12/13/22 10/05/24 duloxetine 60 mg capsule,delayed 60 mg PO DAILY 12/13/22 10/05/24 release famotidine 20 mg tablet 20 mg PO Q12H PRN GI 12/13/22 10/05/24 lamotrigine 100 mg tablet 100 mg PO DAILY 12/13/22 10/05/24 montelukast 10 mg tablet 10 mg PO DAILY 12/13/22 10/05/24 omeprazole 40 mg capsule,delayed 40 mg PO DAILY 12/13/22 10/05/24 release pantoprazole 40 mg tablet,delayed 40 mg PO DAILY GI 12/13/22 10/02/23 release propranolol 60 mg tablet 60 mg PO Q12H 12/13/22 10/02/23 hydrochlorothiazide 12.5 mg tablet 12.5 mg PO QDAY 10/02/23 10/05/24 rizatriptan 10 mg disintegrating 10 mg PO Q2H PRN migraine headache 10/02/23 10/02/23 tablet Previous Rx's ?Medication ?Instructions ?Recorded meloxicam 15 mg tablet 15 mg PO DAILY PRN pain #7 tabs 03/26/24 orphenadrine citrate 100 mg 100 mg PO ONCE PRN muscle spasm #7 03/26/24 tablet,extended release tabs ibuprofen 600 mg tablet 600 mg PO TID PRN pain #30 tabs 05/15/24 ondansetron HCl 4 mg tablet 4 mg PO Q6H PRN nausea and 05/15/24 vomiting #12 tabs ketorolac 10 mg tablet 10 mg PO TID PRN pain #10 tabs 10/05/24 ondansetron 4 mg disintegrating 4 mg PO Q6H PRN nausea and 10/05/24 tablet vomiting #12 tabs Allergies Allergy/AdvReac Type Severity Reaction Status Date / Time adhesive tape Allergy Rash Verified 12/13/22 22:40 cephalexin (From Keflex) Allergy Rash Verified 12/13/22 22:40 Penicillins Allergy Rash Verified 12/13/22 22:40 amoxicillin (From Augmentin) AdvReac Gastrointestinal Verified 12/13/22 22:38 Upset clavulanic acid (From AdvReac Gastrointestinal Verified 12/13/22 22:38 Augmentin) Upset tramadol (From Ultram) AdvReac Gastrointestinal Verified 12/13/22 22:40 Upset Opioid HPI Opioid Management Most Recent Opioid Data: Last Pain Scale 8 07/16/24 15:56 07/16/24 Review of Systems ROS Constitutional Denies: fever or chills Ears, nose, mouth, and throat Denies: throat pain or nasal congestion Cardiovascular Denies: chest pain Respiratory Denies: shortness of breath or cough Gastrointestinal Reports: abdominal pain and nausea; Denies: vomiting or diarrhea Musculoskeletal Denies: back pain Integumentary/Breast Denies: rash Neurological Denies: numbness in extremities or weakness in extremities Hematologic/Lymphatic Denies: easy bruising or easy bleeding [facility] Medical History (Updated 10/05/24 @ 21:34 by MICHELLE Koenig) Ulnar neuropathy ?G56.20 - Lesion of ulnar nerve, unspecified upper limb (ICD-10) Anemia ?D64.9 - Anemia, unspecified (ICD-10) Insomnia ?G47.00 - Insomnia, unspecified (ICD-10) PTSD (post-traumatic stress disorder) ?F43.10 - Post-traumatic stress disorder, unspecified (ICD-10) Panic attacks ?F41.0 - Panic disorder [episodic paroxysmal anxiety] (ICD-10) Anxiety ?F41.9 - Anxiety disorder, unspecified (ICD-10) Depression ?F32.A - Depression, unspecified (ICD-10) COVID-19 ?U07.1 - COVID-19 (ICD-10) Migraine ?G43.909 - Migraine, unspecified, not intractable, without status migrainosus (ICD-10) Kidney stones ?N20.0 - Calculus of kidney (ICD-10) Heartburn ?R12 - Heartburn (ICD-10) Hypertension ?I10 - Essential (primary) hypertension (ICD-10) Sleep apnea ?G47.30 - Sleep apnea, unspecified (ICD-10) Pituitary tumor ?D49.7 - Neoplasm of unspecified behavior of endocrine glands and other parts of nervous system (ICD-10) GERD (gastroesophageal reflux disease) ?K21.9 - Gastro-esophageal reflux disease without esophagitis (ICD-10) Eczema ?L30.9 - Dermatitis, unspecified (ICD-10) Chronic back pain ?M54.9 - Dorsalgia, unspecified (ICD-10) ?G89.29 - Other chronic pain (ICD-10) Bipolar depression ?F31.9 - Bipolar disorder, unspecified (ICD-10) Retained intrauterine contraceptive device (IUD) ?T83.39XA - Other mechanical complication of intrauterine contraceptive device, initial encounter (ICD-10) Surgical History (Updated 10/02/23 @ 09:19 by Mariia Moscoso NP) History of esophagogastroduodenoscopy (EGD) ?Z98.890 - Other specified postprocedural states (ICD-10) 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 - Bariatric surgery status (ICD-10) History of tonsillectomy ?Z90.89 - Acquired absence of other organs (ICD-10) History of cholecystectomy ?Z90.49 - Acquired absence of other specified parts of digestive tract (ICD- 10) History of carpal tunnel release ?Z98.890 - Other specified postprocedural states (ICD-10) History of spinal surgery ?Z98.890 - Other specified postprocedural states (ICD-10) History of spinal surgery ?Z98.890 - Other specified postprocedural states (ICD-10) H/O splenectomy ?Z90.81 - Acquired absence of spleen (ICD-10) H/O laparoscopy ?Z98.890 - Other specified postprocedural states (ICD-10) H/O gastric sleeve ?Z90.3 - Acquired absence of stomach [part of] (ICD-10) Family History (Updated 10/02/23 @ 09:19 by Mariia Moscoso NP) Other Family history of diabetes mellitus Family history of hypertension Family history of myocardial infarction Lymphoma Social History Within the past year, how often did you have a drink containing alcohol: never Score interpretation: A score less than 3 is consistent with normal alcohol consumption. Smoking status: Former smoker Non-prescribed substance use: denies use Highest level of school completed/degree received: Associate degree: occupational, technical, vocational program Little interest or pleasure in doing things: not at all Feeling down, depressed, or hopeless: not at all Exam Narrative Exam Narrative: Gen.: Awake, alert, in no distress Head: Normocephalic, atraumatic ENT: Moist mucous membranes Respiratory: No respiratory distress Gastrointestinal: Abdomen is soft, obese, tender to palpation in the right lower quadrant with voluntary guarding. No rebound. Exam is limited by body habitus Extremities: Moves extremities equally, no unilateral swelling noted. Nonpitting edema noted however the patient is morbidly obese. No erythema, red streaking, wounds or drainage noted to the lower extremities Psych: Normal mood and affect Neuro: No focal neuro deficit Skin: Warm, dry, intact Constitutional Vital Signs, click to edit/add: Last Vital Signs Temp 97.8 F 10/05/24 16:20 Pulse 93 H 10/05/24 16:20 Resp 18 10/05/24 16:20 BP 183/110 H 10/05/24 16:20 Pulse Ox 98 10/05/24 16:20 O2 Del Method Room Air 10/05/24 16:20 Course Vital Signs Vital signs: Vital Signs Temperature 97.8 F 10/05/24 16:20 Pulse Rate 93 H 10/05/24 16:20 Respiratory Rate 18 10/05/24 16:20 Blood Pressure 183/110 H 10/05/24 16:20 Pulse Oximetry 98 10/05/24 16:20 Oxygen Delivery Method Room Air 10/05/24 16:20 Temperature 97.8 F 10/05/24 16:20 Pulse Rate 93 H 10/05/24 16:20 Respiratory Rate 18 10/05/24 16:20 Blood Pressure 183/110 H 10/05/24 16:20 Pulse Oximetry 98 10/05/24 16:20 Oxygen Delivery Method Room Air 10/05/24 16:20 Medical Decision Making MDM Narrative Medical decision making narrative: Patient was treated for pain with Zofran and Toradol in the ER as she drove. She was given IV fluids for elevated lactic acid and lab studies are otherwise unremarkable. Ultrasound of the pelvis shows 2 small ovarian cyst on the right ovary with normal Doppler flow. Ultrasound of the lower extremities with no evidence of DVT and CT of the abdomen and pelvis is unremarkable. Patient given education and reassurance. Follow-up with PCP and return to the ER if symptoms change or worsen. Repeat lactic acid prior to discharge has improved. Medical Records Medical records reviewed: Yes I reviewed the patient's medical records Lab Data Lab results reviewed: Yes I reviewed the patient's lab results Labs: Lab Results 10/05/24 10/05/24 10/05/24 Range/Units 16:50 17:37 20:56 WBC 15.6 H (4.0-11.0) 10^3/uL RBC 4.57 (4.20-5.40) 10^6/uL Hgb 14.0 (12.0-16.0) g/dL Hct 43.6 (36.0-48.0) % MCV 95.4 (81.0-99.0) fL MCH 30.6 (26.7-34.0) pg MCHC 32.1 (29.9-35.2) g/dL RDW 14.2 (11.0-15.0) % Plt Count 553 H (150-450) 10^3/uL MPV 9.4 L (9.5-13.5) fL Neut % (Auto) 66.1 (43.0-75.0) % Lymph % (Auto) 23.6 (20.5-60.0) % [place] % (Auto) 7.3 (1.7-12.0) % Eos % (Auto) 2.1 (0.9-7.0) % Baso % (Auto) 0.6 (0.2-2.0) % Neut # (Auto) 10.3 H (1.4-6.5) 10^3/uL Lymph # (Auto) 3.7 (1.2-3.8) 10^3/uL [place] # (Auto) 1.1 H (0.3-0.8) 10^3/uL Eos # (Auto) 0.3 (0.0-0.7) 10^3/uL Baso # (Auto) 0.1 (0.0-0.1) 10^3/uL Abs Immat Gran (auto) 0.04 H (0.00-0.03) 10^3/uL Imm/Tot Granulo (auto) 0.3 (0.0-0.5) % PT 10.1 (9.0-11.6) sec INR 0.95 Sodium 140 (136-145) mmol/L Potassium 3.8 (3.5-5.1) mmol/L Chloride 103 (98-107) mmol/L Carbon Dioxide 29.4 (21.0-32.0) mmol/L Anion Gap 11.4 BUN 7.0 (7.0-18.0) mg/dL Creatinine 0.85 (0.55-1.02) mg/dL Est GFR ( Amer) >60 (>=60 mL/min/1.73m^2) Est GFR (Non-Af Amer) >60 (>=60 mL/min/1.73m^2) BUN/Creatinine Ratio 8.2 Glucose 130 H (74-106) mg/dL Lactate 2.9 H* 2.2 H* (0.4-2.0) mmol/L Calcium 9.2 (8.5-10.1) mg/dL Total Bilirubin 0.2 (0.2-1.0) mg/dL AST 38 H (15-37) U/L ALT 55 (14-59) U/L Alkaline Phosphatase 101 (46-116) U/L NT-Pro-B Natriuret Pep 71.0 (<=450.0) pg/mL Total Protein 7.5 (6.4-8.2) g/dL Albumin 3.5 (3.4-5.0) g/dL Globulin 4.0 g/dL Albumin/Globulin Ratio 0.9 Lipase 35.0 (16.0-77.0) U/L Urine Color Lt. yellow (YELLOW) Urine Clarity Sl cloudy (CLEAR) Urine pH 7.0 (5.0-9.0) Ur Specific [place] 1.015 (1.005-1.025) Urine Protein Negative (NEG/TRACE) mg/dL Urine Glucose (UA) Negative (NEGATIVE) mg/dL Urine Ketones Negative (NEGATIVE) mg/dL Urine Occult Blood Trace-i (NEGATIVE) Urine Nitrite Negative (NEGATIVE) Urine Bilirubin Negative (NEGATIVE) Urine Urobilinogen 0.2 (0.2-1.0) EU/dL Ur Leukocyte Esterase Small A (NEGATIVE) Urine RBC 0-2 (0-2) #/HPF Urine WBC 2-5 A (NONE SEEN) #/HPF Ur Squamous Epith Cells Many A (NONE/RARE) #/LPF Urine Crystals None seen (None Seen) #/HPF Urine Bacteria Large A (NONE SEEN) #/HPF Urine Casts None seen (NONE SEEN) #/LPF Urine Mucus None seen (NONE SEEN) Ur Culture Indicated? Yes-[facility] Urine HCG, Qual Negative (NEGATIVE) Imaging Data CT scan - abdomen: Attestation: I have reviewed the pertinent imaging results. Discharge Plan Discharge Chief Complaint: Extremity Problem, Nontraumatic Clinical Impression: Abdominal pain, Ovarian cyst, Peripheral edema Patient Disposition: Home, Self-Care Time of Disposition Decision: 21:34 Condition: Good Prescriptions / Home Meds: New ketorolac 10 mg tablet 10 mg PO TID PRN (Reason: pain) Qty: 10 0RF ondansetron 4 mg tablet,disintegrating 4 mg PO Q6H PRN (Reason: nausea and vomiting) Qty: 12 0RF No Action rizatriptan 10 mg tablet,disintegrating 10 mg PO Q2H PRN (Reason: migraine headache) hydrochlorothiazide 12.5 mg tablet 12.5 mg PO QDAY meloxicam 15 mg tablet 15 mg PO DAILY PRN (Reason: pain) Qty: 7 0RF orphenadrine citrate 100 mg tablet extended release 100 mg PO ONCE PRN (Reason: muscle spasm) Qty: 7 0RF aripiprazole 10 mg tablet 15 mg PO DAILY Patient Comments: HS buspirone 15 mg tablet 15 mg PO BID cetirizine 10 mg tablet 10 mg PO DAILY duloxetine 60 mg capsule,delayed release(DR/EC) 60 mg PO DAILY famotidine 20 mg tablet 20 mg PO Q12H PRN (Reason: GI) lamotrigine 100 mg tablet 100 mg PO DAILY montelukast 10 mg tablet 10 mg PO DAILY omeprazole 40 mg capsule,delayed release(DR/EC) 40 mg PO DAILY pantoprazole 40 mg tablet,delayed release (DR/EC) 40 mg PO DAILY propranolol 60 mg tablet 60 mg PO Q12H ondansetron HCl 4 mg tablet 4 mg PO Q6H PRN (Reason: nausea and vomiting) Qty: 12 0RF ibuprofen 600 mg tablet 600 mg PO TID PRN (Reason: pain) Qty: 30 0RF Print Language: Georgian Instructions: Ovarian Cyst (ED), Abdominal Pain (ED), Edema (ED) Referrals: Lisa Roberts NP [Primary Care Provider] - 1 week Discharge Date/Time: 10/05/24 21:49 Documented by User: Anisha Winn MD 10/05/24 22:34 HPI HPI - General Adult General Chief complaint: Extremity Problem, Nontraumatic Stated complaint: SWELLING LEGS Time Seen by Provider: 10/05/24 16:11 Related Data Home Medications ?Medication ?Instructions ?Recorded ?Confirmed aripiprazole 10 mg tablet 15 mg PO DAILY 12/13/22 10/05/24 buspirone 15 mg tablet 15 mg PO BID 12/13/22 10/05/24 cetirizine 10 mg tablet 10 mg PO DAILY 12/13/22 10/05/24 duloxetine 60 mg capsule,delayed 60 mg PO DAILY 12/13/22 10/05/24 release famotidine 20 mg tablet 20 mg PO Q12H PRN GI 12/13/22 10/05/24 lamotrigine 100 mg tablet 100 mg PO DAILY 12/13/22 10/05/24 montelukast 10 mg tablet 10 mg PO DAILY 12/13/22 10/05/24 omeprazole 40 mg capsule,delayed 40 mg PO DAILY 12/13/22 10/05/24 release pantoprazole 40 mg tablet,delayed 40 mg PO DAILY GI 12/13/22 10/02/23 release propranolol 60 mg tablet 60 mg PO Q12H 12/13/22 10/02/23 hydrochlorothiazide 12.5 mg tablet 12.5 mg PO QDAY 10/02/23 10/05/24 rizatriptan 10 mg disintegrating 10 mg PO Q2H PRN migraine headache 10/02/23 10/02/23 tablet Previous Rx's ?Medication ?Instructions ?Recorded meloxicam 15 mg tablet 15 mg PO DAILY PRN pain #7 tabs 03/26/24 orphenadrine citrate 100 mg 100 mg PO ONCE PRN muscle spasm #7 03/26/24 tablet,extended release tabs ibuprofen 600 mg tablet 600 mg PO TID PRN pain #30 tabs 05/15/24 ondansetron HCl 4 mg tablet 4 mg PO Q6H PRN nausea and 05/15/24 vomiting #12 tabs ketorolac 10 mg tablet 10 mg PO TID PRN pain #10 tabs 10/05/24 ondansetron 4 mg disintegrating 4 mg PO Q6H PRN nausea and 10/05/24 tablet vomiting #12 tabs Allergies Allergy/AdvReac Type Severity Reaction Status Date / Time adhesive tape Allergy Rash Verified 12/13/22 22:40 cephalexin (From Keflex) Allergy Rash Verified 12/13/22 22:40 Penicillins Allergy Rash Verified 12/13/22 22:40 amoxicillin (From Augmentin) AdvReac Gastrointestinal Verified 12/13/22 22:38 Upset clavulanic acid (From AdvReac Gastrointestinal Verified 12/13/22 22:38 Augmentin) Upset tramadol (From Ultram) AdvReac Gastrointestinal Verified 12/13/22 22:40 Upset Opioid HPI Opioid Management Most Recent Opioid Data: Last Pain Scale 8 07/16/24 15:56 07/16/24 PFSH PFSH Medical History (Updated 10/05/24 @ 21:34 by MICHELLE Koenig) Ulnar neuropathy ?G56.20 - Lesion of ulnar nerve, unspecified upper limb (ICD-10) Anemia ?D64.9 - Anemia, unspecified (ICD-10) Insomnia ?G47.00 - Insomnia, unspecified (ICD-10) PTSD (post-traumatic stress disorder) ?F43.10 - Post-traumatic stress disorder, unspecified (ICD-10) Panic attacks ?F41.0 - Panic disorder [episodic paroxysmal anxiety] (ICD-10) Anxiety ?F41.9 - Anxiety disorder, unspecified (ICD-10) Depression ?F32.A - Depression, unspecified (ICD-10) COVID-19 ?U07.1 - COVID-19 (ICD-10) Migraine ?G43.909 - Migraine, unspecified, not intractable, without status migrainosus (ICD-10) Kidney stones ?N20.0 - Calculus of kidney (ICD-10) Heartburn ?R12 - Heartburn (ICD-10) Hypertension ?I10 - Essential (primary) hypertension (ICD-10) Sleep apnea ?G47.30 - Sleep apnea, unspecified (ICD-10) Pituitary tumor ?D49.7 - Neoplasm of unspecified behavior of endocrine glands and other parts of nervous system (ICD-10) GERD (gastroesophageal reflux disease) ?K21.9 - Gastro-esophageal reflux disease without esophagitis (ICD-10) Eczema ?L30.9 - Dermatitis, unspecified (ICD-10) Chronic back pain ?M54.9 - Dorsalgia, unspecified (ICD-10) ?G89.29 - Other chronic pain (ICD-10) Bipolar depression ?F31.9 - Bipolar disorder, unspecified (ICD-10) Retained intrauterine contraceptive device (IUD) ?T83.39XA - Other mechanical complication of intrauterine contraceptive device, initial encounter (ICD-10) Surgical History (Updated 10/02/23 @ 09:19 by Mariia Moscoso NP) History of esophagogastroduodenoscopy (EGD) ?Z98.890 - Other specified postprocedural states (ICD-10) 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 - Bariatric surgery status (ICD-10) History of tonsillectomy ?Z90.89 - Acquired absence of other organs (ICD-10) History of cholecystectomy ?Z90.49 - Acquired absence of other specified parts of digestive tract (ICD- 10) History of carpal tunnel release ?Z98.890 - Other specified postprocedural states (ICD-10) History of spinal surgery ?Z98.890 - Other specified postprocedural states (ICD-10) History of spinal surgery ?Z98.890 - Other specified postprocedural states (ICD-10) H/O splenectomy ?Z90.81 - Acquired absence of spleen (ICD-10) H/O laparoscopy ?Z98.890 - Other specified postprocedural states (ICD-10) H/O gastric sleeve ?Z90.3 - Acquired absence of stomach [part of] (ICD-10) Family History (Updated 10/02/23 @ 09:19 by Mariia Moscoso NP) Other Family history of diabetes mellitus Family history of hypertension Family history of myocardial infarction Lymphoma Social History Within the past year, how often did you have a drink containing alcohol: never Score interpretation: A score less than 3 is consistent with normal alcohol consumption. Smoking status: Former smoker Non-prescribed substance use: denies use Highest level of school completed/degree received: Associate degree: occupational, technical, vocational program Little interest or pleasure in doing things: not at all Feeling down, depressed, or hopeless: not at all Exam Constitutional Vital Signs, click to edit/add: Last Vital Signs Temp 97.8 F 10/05/24 16:20 Pulse 93 H 10/05/24 16:20 Resp 18 10/05/24 16:20 BP 183/110 H 10/05/24 16:20 Pulse Ox 98 10/05/24 16:20 O2 Del Method Room Air 10/05/24 16:20 Course Vital Signs Vital signs: Vital Signs Temperature 97.8 F 10/05/24 16:20 Pulse Rate 93 H 10/05/24 16:20 Respiratory Rate 18 10/05/24 16:20 Blood Pressure 183/110 H 10/05/24 16:20 Pulse Oximetry 98 10/05/24 16:20 Oxygen Delivery Method Room Air 10/05/24 16:20 Temperature 97.8 F 10/05/24 16:20 Pulse Rate 93 H 10/05/24 16:20 Respiratory Rate 18 10/05/24 16:20 Blood Pressure 183/110 H 10/05/24 16:20 Pulse Oximetry 98 10/05/24 16:20 Oxygen Delivery Method Room Air 10/05/24 16:20 Medical Decision Making MDM Narrative Medical decision making narrative: Patient was treated for pain with Zofran and Toradol in the ER as she drove. She was given IV fluids for elevated lactic acid and lab studies are otherwise unremarkable. Ultrasound of the pelvis shows 2 small ovarian cyst on the right ovary with normal Doppler flow. Ultrasound of the lower extremities with no evidence of DVT and CT of the abdomen and pelvis is unremarkable. Patient given education and reassurance. Follow-up with PCP and return to the ER if symptoms change or worsen. Repeat lactic acid prior to discharge has improved. ED physician addendum; I received a call from radiology that the patient has a right ovarian cyst with minimal peripheral arterial flow noted concerning for an ovarian torsion. I called the patient who states she has been having pain for approximately 1 week in this area. Approximately 1 month ago she had this cyst drained at [facility] by Dr. Holt. The patient states that Dr. Harley is her [employer]TER. I did speak with him who states that he suggest that she get a repeat ultrasound done tomorrow either at this facility or [facility] and follow-up with Dr. Holt as she is not amenable to treatment here due to her size. I discussed this with the patient who verbalizes understanding. She is not having any significant pain or nausea at this time. She was happy to come in for repeat ultrasound tomorrow. She states she cannot come in until after 4 PM. She was agreeable to coming in at 5 PM. I explained to her that the right ovary was enlarged and there was some minimal peripheral arterial flow noted that was concerning for a torsion and Dr. Harley suggested a repeat ultrasound. She is agreeable with this. She was encouraged to return to the emergency department sooner for severe pain, severe nausea or any concerns. She stated that she would prefer to have her ultrasound done here instead of [facility] because she does not want to have to drive to [place] if she does not need to. She does verbalize understanding that she may have to be transferred back to [facility] for further evaluation and treatment if this is deemed to be an ovarian torsion. She was placed on the radiology outpatient schedule for a repeat ultrasound at 5 PM tomorrow Lab Data Labs: Lab Results 10/05/24 10/05/24 10/05/24 Range/Units 16:50 17:37 20:56 WBC 15.6 H (4.0-11.0) 10^3/uL RBC 4.57 (4.20-5.40) 10^6/uL Hgb 14.0 (12.0-16.0) g/dL Hct 43.6 (36.0-48.0) % MCV 95.4 (81.0-99.0) fL MCH 30.6 (26.7-34.0) pg MCHC 32.1 (29.9-35.2) g/dL RDW 14.2 (11.0-15.0) % Plt Count 553 H (150-450) 10^3/uL MPV 9.4 L (9.5-13.5) fL Neut % (Auto) 66.1 (43.0-75.0) % Lymph % (Auto) 23.6 (20.5-60.0) % [place] % (Auto) 7.3 (1.7-12.0) % Eos % (Auto) 2.1 (0.9-7.0) % Baso % (Auto) 0.6 (0.2-2.0) % Neut # (Auto) 10.3 H (1.4-6.5) 10^3/uL Lymph # (Auto) 3.7 (1.2-3.8) 10^3/uL [place] # (Auto) 1.1 H (0.3-0.8) 10^3/uL Eos # (Auto) 0.3 (0.0-0.7) 10^3/uL Baso # (Auto) 0.1 (0.0-0.1) 10^3/uL Abs Immat Gran (auto) 0.04 H (0.00-0.03) 10^3/uL Imm/Tot Granulo (auto) 0.3 (0.0-0.5) % PT 10.1 (9.0-11.6) sec INR 0.95 Sodium 140 (136-145) mmol/L Potassium 3.8 (3.5-5.1) mmol/L Chloride 103 (98-107) mmol/L Carbon Dioxide 29.4 (21.0-32.0) mmol/L Anion Gap 11.4 BUN 7.0 (7.0-18.0) mg/dL Creatinine 0.85 (0.55-1.02) mg/dL Est GFR ( Amer) >60 (>=60 mL/min/1.73m^2) Est GFR (Non-Af Amer) >60 (>=60 mL/min/1.73m^2) BUN/Creatinine Ratio 8.2 Glucose 130 H (74-106) mg/dL Lactate 2.9 H* 2.2 H* (0.4-2.0) mmol/L Calcium 9.2 (8.5-10.1) mg/dL Total Bilirubin 0.2 (0.2-1.0) mg/dL AST 38 H (15-37) U/L ALT 55 (14-59) U/L Alkaline Phosphatase 101 (46-116) U/L NT-Pro-B Natriuret Pep 71.0 (<=450.0) pg/mL Total Protein 7.5 (6.4-8.2) g/dL Albumin 3.5 (3.4-5.0) g/dL Globulin 4.0 g/dL Albumin/Globulin Ratio 0.9 Lipase 35.0 (16.0-77.0) U/L Urine Color Lt. yellow (YELLOW) Urine Clarity Sl cloudy (CLEAR) Urine pH 7.0 (5.0-9.0) Ur Specific [place] 1.015 (1.005-1.025) Urine Protein Negative (NEG/TRACE) mg/dL Urine Glucose (UA) Negative (NEGATIVE) mg/dL Urine Ketones Negative (NEGATIVE) mg/dL Urine Occult Blood Trace-i (NEGATIVE) Urine Nitrite Negative (NEGATIVE) Urine Bilirubin Negative (NEGATIVE) Urine Urobilinogen 0.2 (0.2-1.0) EU/dL Ur Leukocyte Esterase Small A (NEGATIVE) Urine RBC 0-2 (0-2) #/HPF Urine WBC 2-5 A (NONE SEEN) #/HPF Ur Squamous Epith Cells Many A (NONE/RARE) #/LPF Urine Crystals None seen (None Seen) #/HPF Urine Bacteria Large A (NONE SEEN) #/HPF Urine Casts None seen (NONE SEEN) #/LPF Urine Mucus None seen (NONE SEEN) Ur Culture Indicated? Yes-[facility] Urine HCG, Qual Negative (NEGATIVE) Discharge Plan Discharge Chief Complaint: Extremity Problem, Nontraumatic Clinical Impression: Abdominal pain, Ovarian cyst, Peripheral edema Patient Disposition: Home, Self-Care Time of Disposition Decision: 21:34 Condition: Good Prescriptions / Home Meds: New ketorolac 10 mg tablet 10 mg PO TID PRN (Reason: pain) Qty: 10 0RF ondansetron 4 mg tablet,disintegrating 4 mg PO Q6H PRN (Reason: nausea and vomiting) Qty: 12 0RF No Action rizatriptan 10 mg tablet,disintegrating 10 mg PO Q2H PRN (Reason: migraine headache) hydrochlorothiazide 12.5 mg tablet 12.5 mg PO QDAY meloxicam 15 mg tablet 15 mg PO DAILY PRN (Reason: pain) Qty: 7 0RF orphenadrine citrate 100 mg tablet extended release 100 mg PO ONCE PRN (Reason: muscle spasm) Qty: 7 0RF aripiprazole 10 mg tablet 15 mg PO DAILY Patient Comments: HS buspirone 15 mg tablet 15 mg PO BID cetirizine 10 mg tablet 10 mg PO DAILY duloxetine 60 mg capsule,delayed release(DR/EC) 60 mg PO DAILY famotidine 20 mg tablet 20 mg PO Q12H PRN (Reason: GI) lamotrigine 100 mg tablet 100 mg PO DAILY montelukast 10 mg tablet 10 mg PO DAILY omeprazole 40 mg capsule,delayed release(DR/EC) 40 mg PO DAILY pantoprazole 40 mg tablet,delayed release (DR/EC) 40 mg PO DAILY propranolol 60 mg tablet 60 mg PO Q12H ondansetron HCl 4 mg tablet 4 mg PO Q6H PRN (Reason: nausea and vomiting) Qty: 12 0RF ibuprofen 600 mg tablet 600 mg PO TID PRN (Reason: pain) Qty: 30 0RF Print Language: Georgian Instructions: Ovarian Cyst (ED), Abdominal Pain (ED), Edema (ED) Referrals: Lisa Roberts NP [Primary Care Provider] - 1 week Discharge Date/Time: 10/05/24 21:49
[2024-10-05 17:28] LABS: Bilirubin Urine NEGATIVE (NEGATIVE); Blood Urine TRACE-I (NEGATIVE); Clarity Urine SL CLOUDY (CLEAR); Color Urine LT. YELLOW (YELLOW); Glucose Urine UA NEGATIVE (NEGATIVE); Ketones Urine NEGATIVE (NEGATIVE); Leukocyte Esterase Urine SMALL (NEGATIVE); Nitrite Urine NEGATIVE (NEGATIVE); Protein Urine NEGATIVE (NEG/TRACE); Specific Gravity Urine 1.015 (1.005-1.025); Urobilinogen Urine 0.2 EU/dL (0.2-1.0)
[2024-10-05 17:31] LABS: HCG Qualitative Urine* NEGATIVE (NEGATIVE); Internal Control Within Normal Limits
[2024-10-05 17:48] LABS: Bacteria Urine LARGE #/HPF (NONE SEEN); Cast Seen? NONE SEEN #/LPF (NONE SEEN); Crystals Seen? None Seen #/HPF (None Seen); Mucus Urine NONE SEEN (NONE SEEN); RBC Urine 0-2 #/HPF (0-2); Squamous Epithelial Cell Urine MANY #/LPF (NONE/RARE); Urine Culture Indicated YES-FRMC
[2024-10-05 17:51] LABS: Basophils Absolute Auto 0.1 10^3/uL (0.0-0.1); Basophils Percent Auto 0.6 % (0.2-2.0); Eosinophils Absolute Auto 0.3 10^3/uL (0.0-0.7); Eosinophils Percent Auto 2.1 % (0.9-7.0); Hematocrit 43.6 % (36.0-48.0); Immature Granulocytes Abs Auto 0.04 10^3/uL (0.00-0.03); Immature Granulocytes Pct Auto 0.3 % (0.0-0.5); Lymphocytes Absolute Auto 3.7 10^3/uL (1.2-3.8); Lymphocytes Percent Auto 23.6 % (20.5-60.0); Mean Corpuscular HGB Conc 32.1 g/dL (29.9-35.2); Mean Corpuscular Hemoglobin 30.6 pg (26.7-34.0); Mean Corpuscular Volume 95.4 fL (81.0-99.0); Mean Platelet Volume 9.4 fL (9.5-13.5); Monocytes Absolute Auto 1.1 10^3/uL (0.3-0.8); Monocytes Percent Auto 7.3 % (1.7-12.0); Neutrophils Absolute Auto 10.3 10^3/uL (1.4-6.5); Neutrophils Percent Auto 66.1 % (43.0-75.0); Platelet Count 553 10^3/uL (150-450); Red Blood Count 4.57 10^6/uL (4.20-5.40); Red Cell Distribution Width 14.2 % (11.0-15.0); White Blood Count 15.6 10^3/uL (4.0-11.0)
[2024-10-05] MEDS: ONDANSETRON PF 4 MG/2 ML VIAL IV (17:53)
[2024-10-05] MEDS: KETOROLAC TROMETHAMINE 30 MG/ML VIAL IVP (17:53)
[2024-10-05 18:06] LABS: INR 0.95; Prothrombin Time 10.1 sec (9.0-11.6)
[2024-10-05 18:09] LABS: Alanine Aminotransferase 55 U/L (14-59); Albumin Globulin Ratio 0.9; Albumin Level 3.5 g/dL (3.4-5.0); Alkaline Phosphatase 101 U/L (46-116); Anion Gap 11.4; Aspartate Amino Transferase 38 U/L (15-37); BUN Creatinine Ratio 8.2; Bilirubin Total 0.2 mg/dL (0.2-1.0); Carbon Dioxide 29.4 mmol/L (21.0-32.0); Chloride 103 mmol/L (98-107); Estimated GFR (African America >60 (>=60 mL/min/1.73m^2); Estimated GFR (Non-African Ame >60 (>=60 mL/min/1.73m^2); Glucose 130 mg/dL (74-106); Potassium 3.8 mmol/L (3.5-5.1); Sodium 140 mmol/L (136-145); Total Protein 7.5 g/dL (6.4-8.2)
[2024-10-05 18:11] LABS: Lactate/Lactic Acid 2.9 mmol/L (0.4-2.0)
[2024-10-05 18:14] LABS: Calcium 9.2 mg/dL (8.5-10.1)
[2024-10-05] MEDS: 0.9 % SODIUM CHLORIDE 1,000 ML 1000 ML IV (18:54)
[2024-10-05 21:31] LABS: Lactate/Lactic Acid 2.2 mmol/L (0.4-2.0)
== END 2024-10-05 21:49 | disposition home or self-care (01) ==
PROVIDERS: Physician Assistant; Emergency Provider Emergency Medicine; PCP Nurse Practitioner Family
DX: R10.31 Right lower quadrant pain (principal); N83.201 Unspecified ovarian cyst, right side; R60.0 Localized edema; Z90.49 Acquired absence of other specified parts of digestive tract; Z90.81 Acquired absence of spleen; Z87.891 Personal history of nicotine dependence; E66.01 Morbid (severe) obesity due to excess calories; Z68.44 Body mass index [BMI] 60.0-69.9, adult; Z98.84 Bariatric surgery status
CPT/HCPCS: 36415; 74177; 76830; 80053; 81001; 83605; 83690; 83880; 84703; 85025; 85610; 87086; 93970; 96374; 96375; 99285; J1885; J2405; Q9967

== ENCOUNTER 2025-02-15 18:23 | Emergency (ER) | payer MEDICAID, SELFPAY ==
--- OUTSIDE RECORDS SUMMARY | 2025-02-06 15:00 | XMS_ITS | Encounter Summary ---
Author Organization [facility] Address [address] [place] [address] Care Team Providers Care Delivery Lead Name Role Phone Elizabet Dodd DO Primary Care Provider [phone] Source Comments In the event this information is protected by the Federal Confidentiality of Alcohol and Drug AbusePatient Records regulations: The Federal rules restrict any use of the information to criminally investigate or prosecute any alcohol or drug abuse patient.[facility] Reason for Visit * Reason Comments Patient Education Reassessment Encounter Details Date Type Department Care Team (Latest Contact Info) Description 02/06/2025 3:00 PM EDT [facility] General Surgery BMI [address] [place] [address] Lolis Mejía, RD [address] [place] [address] S/P biliopancreatic diversion with duodenal switch (Primary Dx); Dietary counseling and surveillance Social History Tobacco Use Types Packs/Day Years Used Date Smoking Tobacco: Former Cigarettes 0.5 5 0 12/27/2008 - 12/27/2013 Smokeless Tobacco: Never Alcohol Use Standard Drinks/Week Comments Not Currently 0 (1 standard drink = 0.6 oz pur e alcohol) None since 2012 [facility] Utilities Answer Date Recorded In the past 12 months has th e electric, gas, oil, or water company threatened to shut off services in your home? No 08/05/2023 Overall Financial Resource Strain (CARDIA) Answe r Date Recorded How hard is it for you to pa y for the very basics like food, housing, medical care, and heating? Not hard at all 08/05/2023 PHQ-2 Answer Date Recorded PHQ-2 score 2 01/28/2025 Hunger Vital Sign Answer Date Recorded Within the past 12 months, y ou worried that your food would run out before you got the money to buy more. Never true 01/03/20 25 Within the past 12 months, t he food you bought just didn't last and you didn't have money to get more. Never true 01/02/2025 PRAPARE - Transportation Answer Date Re corded In the past 12 months, has l ack of transportation kept you from medical appointments or from getting medications? No 12/2023 In the past 12 months, has l ack of transportation kept you from meetings, work, or from getting things needed for daily living? No 08/05/2023 Housing Stability Vital Sign Answer Kristofer e Recorded In the last 12 months, was t here a time when you were not able to pay the mortgage or rent on time? No 08/05/2023 In the last 12 months, how many places have you lived? 1 08/05/2023 In the last 12 months, was t here a time when you did not have a steady place to sleep or slept in a fci (including now)? No 08/05/2023 Area Deprivation Index Answer Date Wesley rded National Score (1-100), lower number is lower ri sk 64 01/15/2023 State Score (1-10), lower number is lower risk 4 01/15/2023 Data from: https://www.neighborhoodatlas.medicine.[facility].edu/. Last address used for calculation [address] 01/15/2023 Comments No Sex and Gender Information Value Date Recorded Sex Assigned at Female 07/09/2021 1:06 PM EST Legal Sex Female 10:14 AM EST Gender Identity Female 07/09/2021 1:06 PM EST Sexual Orientation Straight 07/09/2021 1: 06 PM EST documented as of this encounter Last Filed Vital Signs Vital Sign Reading Time Taken Comments Blood Pressure - - Pulse - - Temperature - - Respiratory Rate - - Oxygen Saturation - - Inhaled Oxygen Concentration - - Weight 189.1 kg (417 lb) 02/06/2025 2:48 PM EDT Height 162.6 cm (5' 4 ) 02/06/2025 2:48 PM EDT Body Mass Index 71.58 02/06/2025 2:48 PM EDT documented in this encounter Functional Status * Are you deaf or do you have serious difficulty hearing? Answer Date of Assessment Author No 08/11/2023 12:43 PM Kira Sanchez RN * Are you blind or do you have serious difficulty seeing, even when wearing glasses? Answer Date of Assessment Author No 08/11/2023 12:43 PM Kira Sanchez RN * Do you have serious difficulty walking or climbing stairs? Answer Date of Assessment Author No 08/11/2023 12:43 PM Kira Sanchez RN * Do you have difficulty dressing or bathing? Answer Date of Assessment Author No 08/11/2023 12:43 PM Kira Sanchez RN * Because of a physical, mental, or emotional condition, do you have difficulty doing errands alone such as visiting a doctor's office or shopping? Answer Date of Assessment Author No 08/11/2023 12:43 PM Kira Sanchez RN documented as of this encounter Mental Status * Because of a physical, mental, or emotional condition, do you have serious difficulty concentrating, remembering, or making decisions? Answer Entry Date Author No 08/11/2023 12:43 PM Kira Sanchez RN documented in this encounter Progress Notes * Lolis Mejía, RD - 02/06/2025 3:00 PM EDT AMBULATORY PATIENT EDUCATION NOTE- Shared Virtual Nutrition Group This group visit was performed virtually due to the COVID-19 epidemic as an effort to protect patients and minimize exposure. Consent from patient received to conduct a group visit virtually. This Team Access Model visit is a virtual group encounter. It required patient-provider interaction for themedical decision making as documented below. I have communicated my name and active licensure. The patient???s identity and physical location were verified at the time of this visit. Either the patient or their legal national account representative has been informed of the risks and benefits of -- and alternatives to -- treatment through a remote evaluation and consents to proceed with the evaluation remotely. TOPIC: - ReBoot Program Topic Anatomy and Vitamins Multidisciplinary Programs for Weight gain following surgery. READINESS TO LEARN COGNITIVE ABILITY: Alert and oriented MOTIVATION TO LEARN: Interested FAMILY SUPPORT: Unable to assess - Family not present INSTRUCTION PROVIDED TO: Patient PATIENT LEARNS BEST BY: Multiple Methods FACTORS AFFECTING LEARNING: None PHYSICAL LIMITATIONS AFFECTING LEARNING: None LEARNING RESPONSE DIAGNOSIS: Altered Gastrointestinal Tract Function, related to, S/P bariatric surgery, as evidencedby BPD/DS surgery, 1.5 years post op Malnutrition Screening Significant unintentional weight loss? No Eating less than 75% of usual intake for more than 2 weeks? No Potential Signs of Inflammation: no identifiable sources RECOMMENDED MALNUTRITION DIAGNOSIS: NO MALNUTRITION IDENTIFIED Nutritional status: METHOD OF INSTRUCTION: Individual instruction Group class instruction PATIENT / FAMILY RESPONSE: Nutrition outcome statement: Expect attention to consistent vitamin/minerals supplementation and dietary changes to assist with weight management following BPD/DS () 1.5 years post op Height and weight provided by patient. Reports losing 10# since last visit; she had partially met her previous goal of foods and fluids; notes adherent with ADEK vitamins. SMART Goal Progress Desires continued weight loss 1-2 pounds. Resting Metabolic Rate: 2598 Reviewed nutrition principles of: Vitamins and minerals for BPD with DS (patient taking ADEK, 9488-5284 mg calcium citrate vitamins) Anatomy of BPD/DS surgery (as it relates to digestion, absorption, dumping syndrome, and reactive hypoglycemia) following surgery Exercise related to personal SMART goals SMART GOAL: Practice not eating/drinking 3/week Increase protein by 30 grams/day 3/week Increase fluid by 32 ounces 3/week Nutrition Monitoring & Evaluation: - adherence to above goals Criteria: weight check, labs, patient statement Need for Follow up: 1 Week Appointment Start Time: 3:00 PM Appointment End Time: 4:10 PM Time Spent on Consult: 70 minutes - Group MNT Billing Type: Ambulatory Group 2 units Total Time (mins): 70 Lolis Mejía MS, RD,CSOWM,LD documented in this encounter Plan of Treatment Upcoming Encounters Date Type Department Care Team (Latest Contact Info) Description 02/16/2025 1:45 PM EDT [facility] BMI FHC REJ [address] [place] [address] Amina Light MD [address] [place] [address] follow-up weight management 03/06/2025 3:00 PM EDT [facility] General Surgery BMI PSYL [address] [place] [address] Dinah Perez, PhD [address] [place] [address] Exploring your relationship with food 03/13/2025 3:00 PM EDT [facility] BMI PSYL [address] [place] [address] Dinah Perez, PhD [address] [place] [address] Emotional eating 03/20/2025 3:00 PM EDT [facility] BMI [address] [place] [address] Lolis Mejía, BRENDON [address] [place] [address] Protein and Fluids documented as of this encounter Visit Diagnoses Diagnosis S/P biliopancreatic diversion with duodenal switch- Primary Dietary counseling and surveillance Dietary surveillance and counseling documented in this encounter Care Teams Delivery Lead Relationship Specialty Start Date End Date Elizabet Dodd DO [address] [place] [address] PCP - General Family Medicine 04/16/22 documented as of this encounter
--- OUTSIDE RECORDS SUMMARY | 2025-02-09 09:00 | XMS_ITS ---
Author Organization [facility] vices Address [address] [place] [id number] Care Team Providers Care Accounts Receivable Supervisor Name Role Phone Lisa Roberts Primary Care Provider Waqas Lewis [phone] REASON FOR VISIT DM Social History Sex Assigned At : Social History Observation Description Sex Assigned At Female Encounters Encounter Location Date Provider Diagnosis Main [address] [place] [id number] 02/09/2025 Waqas Lewis Plan Of Treatment Next Appt Details Provider Name:Waqas Lewis, 02/28/2025 12:45:00 PM, [address] [place], [id number], Provider Name:Waqas Lewis, 04/03/2025 01:30:00 PM, [address] [place], [id number], Progress Notes * Anabell JACKSONica ADOB: (39 yo F)Acc No.[id number]:02/09/2025 Medical Note Patient: Susi LIVINGSTON Provider: Stephanie Lewis :1985 A ge:39 Y S ex:Female Date:02/09/2025 Address:[address], [id number] Pcp:Lisa Roberts Subjective: * Chief Complaints: * 1 . DM. * Medical History: Objective: * Vitals: Assessment: Plan: * Treatment: * Billing Information: * Visit Code: * Procedure Codes: * Electronic signature of Just in MICHELLE Lewis on 02/15/2025 at 06:32 PM EDT Sign off status: Pending * Provider: Stephanie Lewis Date: 02/09/2025 Generated for Omayra moore/Beatrice/Beltran on: 02/15/2025 06:32 PM EDT
--- OUTSIDE RECORDS SUMMARY | 2025-02-13 15:00 | XMS_ITS | Encounter Summary ---
Author Organization [facility] Address [address] [place] [address] Care Team Providers Care Silver Service Waiter Name Role Phone Elizabet Dodd DO Primary Care Provider [phone] Lolis Mejía RD Unavailable Unavailable Source Comments In the event this information is protected by the Federal Confidentiality of Alcohol and Drug AbusePatient Records regulations: The Federal rules restrict any use of the information to criminally investigate or prosecute any alcohol or drug abuse patient.[facility] Reason for Visit * Reason Comments Obesity Encounter Details Date Type Department Care Team (Latest Contact Info) Description 02/13/2025 3:00 PM EDT [facility] General Surgery BMI PSYL [address] [place] [address] Dinah Perez, PhD [address] [id number] Eating disorder, unspecified type (Primary Dx); Psychological factors affecting medical condition; Class 3 obesity (HCC) Social History Tobacco Use Types Packs/Day Years Used Date Smoking Tobacco: Former Cigarettes 0.5 5 0 12/27/2008 - 12/27/2013 Smokeless Tobacco: Never Alcohol Use Standard Drinks/Week Comments Not Currently 0 (1 standard drink = 0.6 oz pur e alcohol) None since 2012 [facility] Utilities Answer Date Recorded In the past [...] PHQ-2 Answer Date Recorded PHQ-2 score 2 02/11/2025 Hunger Vital Sign Answer Date Recorded Within [...] place to sleep or slept in a group home (including now)? No 08/05/2023 Area Deprivation Index Answer Date Wesley rded National Score (1-100), lower number is lower ri sk 64 01/15/2023 State Score (1-10), lower number is lower risk 4 01/15/2023 Data from: https://www.neighborhoodatlas.medicine.[facility].edu/. Last address used for calculation [address] 01/15/2023 Comments No Sex and Gender Information Value Date Recorded Sex Assigned at Female 07/09/2021 1:06 PM EST Legal Sex Female 10:14 AM EST Gender Identity Female 07/09/2021 1:06 PM EST Sexual Orientation Straight 07/09/2021 1: 06 PM EST documented as of this encounter Functional Status * Are you [...] documented in this encounter Progress Notes * Dinah Perez, PhD - 02/10/2025 8:51 AM EDT Susi Milesenship [id number] February 13, 2025 [facility] Bariatric and Metabolic [facility] M61 Re-Boot Group CPT: - [id number] Virtual Group Psychotherapy 3:00-3:52pm Re-Boot Program Relapse Prevention Patients attended a session part of a 12-week multidisciplinary program for weight regain followingbariatric surgery. Patients previously provided verbal consent related to the use of virtual visits. Reviewed food diaries and progress with last week's behavioral goals. Discussed the distinction between slips and relapses. Strategies for responding to slips, such as practicing compassionate self-talk and using a growth mindset, were reviewed. Patients discussed causes and warning signs of relapses, and developed personal relapse prevention plans. Ongoing support options (e.g., Best Aftercare, virtual support groups, and individual sessions) were reviewed. Patients reflected about their progress in the group. Mrs. Jackson was an active participant in the session. She did verbalize an understanding of the material presented. Patient does appear to be an appropriate group candidate. She has been keepingfood diaries daily. She lost 19 lb since the beginning of the month, which she attributed to takinga GLP-1, reducing portions, and consuming protein first. However, she struggles to meet protein needs due to low appetite. When discussing relapse prevention, she said that stress, emotional eating, high pain days, and negative thoughts such as I blew it are triggers for slips or relapses. Last session's behavioral goals: Practice not eating/drinking 3/week - MET AND EXCEEDED (daily) Increase protein by 30 grams/day 3/week - NOT MET Increase fluid by 32 ounces 3/week - MET Behavioral goals for next session: Increase protein to 30-40 grams/day 2x/week Try chair exercises at least once Objective: Session Attendance Tracking: Topic Date Attended Program Orientation 12/28/24 Anatomy/Vitamins 02/06/25 Exploring your Relationship with Food The Benefits of Physical Activity Emotional Eating Protein and Fluids Cognitive Strategies and Body Image Did not attend Healthful Meal Planning Post-Surgery 01/23/25 Stimulus Control & Mindful Eating 01/16/25 Maintaining an Exercise Routine 01/02/25 Social Eating & Social Support Did not attend Relapse Prevention 02/13/25 Assessment: Eating disorder NOS Psychological Factors Affecting Class 3 Obesity Plan: Return to Re-Boot session in 1 week. Dinah Perez, Ph.D. Psychologist documented in this encounter Plan of Treatment Upcoming Encounters Date Type Department Care Team (Latest Contact Info) Description 02/16/2025 1:45 PM EDT [facility] BMI FHC REJ [address] [place] [address] Amina Light MD [address] [place] [address] follow-up weight management 03/06/2025 3:00 PM EDT [facility] General Surgery BMI PSYL [address] [place] [address] Dinah Perez, PhD [address] [place], [place] [id number] Exploring your relationship with food 03/13/2025 3:00 PM EDT [facility] Surgery BMI PSYL [address] [place] [address] Dinah Perez, PhD [address] [place], [place] [id number] Emotional eating 03/20/2025 3:00 PM EDT [facility] BMI [address] [place], [place] [id number] Lolis Mejía RD [address] [place] [address] Protein and Fluids documented as of this encounter Visit Diagnoses Diagnosis Eating disorder, unspecified type- Primary Psychological factors affecting medical condition Psychic factors associated with diseases classified elsewhere Class 3 obesity (HCC) documented in this encounter Care Teams Silver Service Waiter Relationship Specialty Start Date End Date Elizabet Dodd DO [address] [place] [address] PCP - General Family Medicine 04/16/22 Lolis Mejía RD [address] [place] [address] Nutrition 02/07/25 documented as of this encounter
--- OUTSIDE RECORDS SUMMARY | 2025-02-15 18:30 | XMS_ITS | Clinical Summary ---
Author Organization [facility] Address [address] [place] [address] Care Team Providers Care Landscape Drafter Name Role Phone Elizabet Dodd DO Primary Care Provider [phone] Allergies Active Allergy Reactions Criticality Noted Date Comments *Adhesive Tape 11/09/2006 Amoxicillin-Pot Clavulanate 12/18/19 17 Cephalexin 05/17/2021 Penicillins 05/17/2021 Tramadol 08/27/2012 Medications busPIRone 15 MG tablet Take 15 mg by mouth 2 times daily. 04/25/2021 Active Multiple Vitamin (Daily-Sandor) tablet 1 tablet daily. 04/25/2021 Active Propranolol HCl 60 MG tablet Take 60 mg by mouth 2 times daily. 05/13/2021 Active faMOTIdine 20 MG tablet Take 20 mg by mouth 2 times daily. 05/13/2021 Active DULoxetine [address] Particles capsule DR Take 60 mg by mouth 2 times daily. 04/25/2021 Active cetirizine 10 MG tablet Take 10 mg by mouth daily. 04/25/2021 Active fluticasone 50 MCG/ACT Suspension nasal spray instill 2 (TWO) sprays in EACH nostril DAILY 04/25/2021 Active lamoTRIgine 100 MG tablet Take 100 mg by mouth daily every morning. 04/25/2021 Active aripiprazole 5 MG tablet Take 5 mg by mouth at bedtime. 04/30/2021 Active pantoprazole [address] tablet DR Take 40 mg by mouth daily. Active Active Problems Problem Noted Date Diagnosed Date Morbid obesity with body mass index of 50 or hig her 05/17/2021 S/P laparoscopic sleeve gastrectomy 05/17/2021 GERD (gastroesophageal reflux disease) TONEY on CPAP 05/17/2021 Family History Medical History Relation Name Comments Cancer- Other Father Diabetes Father Other - Specify Mother Other - Specify Sister Relation Name Status Comments Father Other lymphoma Mother Other hypothyroidism Sister Social History Tobacco Use Types Packs/Day Years Used Date Smoking Tobacco: Never Smokeless Tobacco: Never Alcohol Use Standard Drinks/Week Comments Never 0 (1 standard drink = 0.6 oz pur e alcohol) Comments No Sex and Gender Information Value Date Recorded Sex Assigned at Not on file Legal Sex Female 10:06 AM EDT Gender Identity Not on file Sexual Orientation Not on file Last Filed Vital Signs Vital Sign Reading Time Taken Comments Blood Pressure 133/77 05/17/2021 11:18 AM EST Pulse 75 05/17/2021 11:18 AM EST Temperature 35.7 C (96.3 F) 05/17/2021 11:18 AM EST Respiratory Rate - - Oxygen Saturation 95% 05/17/2021 11: 18 AM EST Inhaled Oxygen Concentration - - Weight 174.4 kg (384 lb 6.4 oz) 021 11:18 AM EST Height 160 cm (5' 3 ) 05/17/2021 11:18 AM EST Body Mass Index 68.09 05/17/2021 11:18 AM EST Plan of Treatment Health Maintenance Due Date Last Done Comments HEPATITIS C VIRUS SCREENING 1985 TETANUS 1985 HIV SCREENING DISCUSSION 2000 HEP B VACCINE (1 of 3 - 19+ 3-dose series) 2004 TDAP (ADULT) 2004 CERVICAL CANCER SCREENING DISCUSSION 2006 HPV VACCINE (1 - 3-dose SCDM series) 2012 COVID-19 VACCINE ( - 2023-2 5 season) 2024 INFLUENZA VACCINE (#1) 2025 PNEUMOCOCCAL VACCINE SERIES Aged Out No longer eligible based on patient's age to complete this topic Care Teams Landscape Drafter Relationship Specialty Start Date End Date Elizabet Dodd DO PCP - General Family Medicine 03/21/21
--- OUTSIDE RECORDS SUMMARY | 2025-02-15 18:30 | XMS_ITS | Clinical Summary ---
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 Vbje-Dxxo-Ptamociqcsgp Rash 2014 Adhesive Tape-Silicones Rash 05/06/2019 Amoxicillin-Pot Clavulanate Diarrhea 05/06/20 Cephalexin Rash,Itching 05/06/2019 Penicillins Hives 05/06/2019 Tramadol Hcl Itching 03/13/2015 Medications * This document contains information received from the source organization and may not represent a complete record from that organization. DULoxetine (CYMBALTA) 60 mg capsule Take 60 mg by mouth once daily. Active ARIPiprazole (ABILIFY) 10 mg tablet Take 10 mg by mouth daily at bedtime. Active lamoTRIgine (LAMICTAL) 100 mg tablet Take 100 mg by mouth every morning. Active prazosin (MINIPRESS) 1 mg cap Take 1 mg by mouth daily at bedtime. Active propranolol (INDERAL) 60 mg tablet Take 60 mg by mouth twice daily. Active montelukast (SINGULAIR) 10 mg tablet Take 10 mg by mouth daily at bedtime. Active busPIRone (BUSPAR) 15 mg tablet Take 1 tablet by mouth every 12 hours. 024 Active cetirizine (ZYRTEC) 10 mg tablet Take 1 tablet by mouth every afternoon. Active hydrOXYzine pamoate (VISTARIL) 50 mg capsule Take 50 mg by mouth at bedtime as needed. Active OXcarbazepine (TRILEPTAL) 300 mg tablet Take 300 mg by mouth daily at bedtime. Active levonorgestrel (MIRENA) 21 mcg/24 hours (8 yrs) 52 mg IUD 1 Each by INTRAUTERINE route one time only. Active omeprazole (PRILOSEC) 40 mg capsuleIndication s:Status post biliopancreatic diversion with duodenal switch Take 1 capsule by mouth once daily. 90 capsule Active ondansetron orally disintegrating (ZOFRAN ODT) 4 mg disintegrating tabletIndications :prevention of post-operative nausea and vomiting dissolve 1 tablet in mouth every 8 hours as needed for nausea/vomiting. 90 tablet Active Zinc Acetate, Oral, 25 mg (zinc) capIndications:Im paired intestinal absorption ([facility]),S/P bariatric surgery,Dietary zinc deficiency Take 1 capsule by mouth once daily. 30 capsule 2 Active Cholecalciferol, Vitamin D3, 25 mcg (1,000 unit) capIndications:Im paired intestinal absorption ([facility]),S/P bariatric surgery,Vitamin D deficiency Take 2 capsules by mouth once daily. 60 capsule 2 024 Active ferrous sulfate 325 mg (65 mg iron) tabletIndications :Impaired intestinal absorption ([facility]),S/P bariatric surgery,Iron deficiency Take 1 tablet by mouth once daily. 30 tablet 2 024 Active metFORMIN ER (GLUCOPHAGE XR) 500 mg 24 hr tablet take 1 tablet by mouth daily with dinner 30 tablet 3 024 Active tirzepatide (MOUNJARO) 2.5 mg/0.5 mL pen injectorIndicatio ns:BMI 60.0-69.9, adult ([facility]),S/P bariatric surgery,S/P biliopancreatic diversion with duodenal switch,Prediabete s Inject 2.5 mg subcutaneously one time a week. 2 mL 1 024 Active tirzepatide, weight loss (ZEPBOUND) 2.5 mg/0.5 mL pen injectorIndicatio ns:TONEY (obstructive sleep apnea),S/P biliopancreatic diversion with duodenal switch,BMI 70 and over, adult (HCC) Inject 2.5 mg subcutaneously one time a week. Severe TONEY-AHI >30 2 mL 2 025 Active tirzepatide (MOUNJARO) 2.5 mg/0.5 mL pen injectorIndicatio ns:S/P biliopancreatic diversion with duodenal switch,BMI 70 and over, adult (HCC),TONEY (obstructive sleep apnea),Type 2 diabetes mellitus without complication, without long-term current use of insulin ([facility]) Inject 2.5 mg subcutaneously one time a week. 2 mL 2 025 2024 Active cholecalciferol, Vitamin D3, (VITAMIN D3) 1,250 mcg (50,000 unit) cap capsuleIndication s:S/P biliopancreatic diversion with duodenal switch,BMI 70 and over, adult (HCC),TONEY (obstructive sleep apnea),Type 2 diabetes mellitus without complication, without long-term current use of insulin ([facility]) TAKE 1 CAPSULE BY MOUTH EVERY WEEK 12 capsule 1 025 Active cholecalciferol, vitamin D3, 1,250 mcg (50,000 unit) tabIndications:S/ P biliopancreatic diversion with duodenal switch,BMI 70 and over, adult (HCC),TONEY (obstructive sleep apnea),Type 2 diabetes mellitus without complication, without long-term current use of insulin ([facility]) Take one pill once a week for 12 weeks 12 tablet 1 025 2024 Discontinued Active Problems Problem Noted Date Diagnosed Date Impaired intestinal absorption 11/02/2023 Iron deficiency 11/02/2023 Dietary zinc deficiency 11/02/2023 Hypokalemia 08/07/2023 Hypophosphataemia 08/07/2023 Post-op pain 08/05/2023 S/P biliopancreatic diversion with duodenal swit ch 08/04/2023 Morbid obesity 03/31/2023 Morbid obesity with body mass index of 60.0-69.9 in adult 02/17/2020 Assessment & Plan (07/22/2023 12:58 PM EST): Assessment: Body mass index is 66.6 kg/m . Assessment & Plan (03/10/2023 1:47 PM EDT): Assessment: Body mass index is 68.66 kg/m . Assessment & Plan (12/10/2021 1:12 PM EDT): Assessment: Body mass index is 66.09 kg/m . Recurrent tonsillitis 10/08/2015 Tonsillar enlargement 10/04/2015 TONEY on CPAP 10/04/2015 Assessment & Plan (07/22/2023 12:58 PM EST): Assessment: Noncompliant with CPAP Assessment & Plan (03/10/2023 1:43 PM EDT): Assessment: non compliant with CPAP Assessment & Plan (12/05/2021 3:50 PM EDT): Assessment: not currently using CPAP Gastroesophageal reflux disease 10/04/2015 Assessment & Plan (07/22/2023 1:01 PM EST): Assessment: Controlled on medication Assessment & Plan (03/10/2023 1:47 PM EDT): Assessment: stable on PPI Assessment & Plan (12/10/2021 1:10 PM EDT): Assessment: on PPI and sucralfate DDD (degenerative disc disease), lumbar 10/04/19 16 Bipolar affective disorder 10/04/2015 Assessment & Plan (07/22/2023 1:00 PM EST): Assessment: managed on medication by PCP and psych Assessment & Plan (03/10/2023 1:47 PM EDT): Assessment: stable on medication Denies any suicidal ideations Assessment & Plan (12/05/2021 3:52 PM EDT): Assessment: stable on current rx per patient Thrombocytosis 03/13/2015 Assessment & Plan (07/22/2023 1:00 PM EST): Assessment: chronic leukocytosis and thrombocytosis Most recent labs CBC with diff: WBC 13.23 07/13/2023 Platelet Count 555 07/13/2023 Assessment & Plan (03/10/2023 1:54 PM EDT): Assessment: s/p splenectomy in 2014, Elevated Platelet count Platelet Count Date Value Ref Range Status 01/23/2023 624 (H) 150 - 400 k/uL Final Assessment & Plan (12/10/2021 1:12 PM EDT): Assessment: s/p splenectomy in 2014, last labs available in [facility] from 01/2021 showing platelets at 488, plan to discuss with Dr. Vargas for review. Migraine Assessment & Plan (07/22/2023 1:16 PM EST): Assessment: managed on medication Follows with neuro- Dr. Mccauley Assessment & Plan (03/10/2023 1:57 PM EDT): Assessment: stable on Inderal twice a day Encounters * This document contains information received from the source organization and may not represent a complete record from that organization. Date Type Department Care Team Description 02/15/2025 Telephone Pre Anesthesia [address] [place] [address] Joe Vargas MD 02/13/2025 3:00 PM EDT [facility] General Surgery BMI PSYL [address] [place], [place] [id number] Dinah Perez, PhD Eating disorder, unspecified type (Primary Dx); Psychological factors affecting medical condition; Class 3 obesity (HCC) 02/09/2025 Patient Msg Pre Anesthesia [address] [place] [address] Provider, Ccf PRE OP APPOINTMENT NEEDED 02/08/2025 Patient Msg Pre Anesthesia [address] [place] [address] Provider, Ccf PRE OP APPOINTMENT NEEDED 02/08/2025 Telephone Pre Anesthesia [address] [place] [address] Gloria Balderas, PSYCHIATRIC CLINICIAN No Show 02/06/2025 3:00 PM EDT [facility] [address] [facility] [facility] [place] [address] IvánjerikingsLolis, RD S/P biliopancreatic diversion with duodenal switch (Primary Dx); Dietary counseling and surveillance 02/06/2025 Patient [facility] General Surgery BMI [address] [facility] [place] [address] Provider, Ccf Nutrition summary 01/30/2025 3:00 PM EDT [facility] BMI PSYL [address] [place] [address] Dinah Perez, PhD NO SHOW (Primary Dx) 01/24/2025 [facility] General Surgery [address] [place] [address] Amina Light MD Med Change Request 01/23/2025 3:00 PM EDT [facility] BMI [address] [place] [address] Lolis Mejía, RD S/P biliopancreatic diversion with duodenal switch (Primary Dx); Dietary counseling and surveillance; Type 2 diabetes mellitus without complication, without long-term current use of insulin ([facility]) 01/23/2025 Patient [facility] General Surgery BMI [address] [place] [address] Provider, Ccf Nutrition summary 01/23/2025 Results Follow-Up BMI [facility] REJ [address] [place] [address] Amina Light MD 01/21/2025 Travel 01/16/2025 3:00 PM EDT [facility] BMI PSYL [address] [place] [address] Dinah Perez, PhD Eating disorder, unspecified type (Primary Dx); Psychological factors affecting medical condition; S/P bariatric surgery 01/10/2025 11:00 AM EDT [facility] [address] [place] [address] Amina Light MD S/P biliopancreatic diversion with duodenal switch (Primary Dx); BMI 70 and over, adult (HCC); TONEY (obstructive sleep apnea); Type 2 diabetes mellitus without complication, without long-term current use of insulin (HCC) 01/10/2025 Get Medical Advice General Surgery [address] [place] [address] Amina Light MD Mounjuro question 01/09/2025 3:00 PM EDT [facility] BMI PSYL [address] [place] [address] Dinah Perez, PhD APPOINTMENT CANCELLED (Primary Dx) 01/09/2025 Patient [facility] General Surgery BMI PSYL [address] [place] [address] Dinah Perez, PhD Mindful eating exercise in Reboot on Thursday01/03/2025 Patient Msg Endocrinology [address] [place] [address] Elias Celestin, PhD chair exercises 01/02/2025 8:00 AM EDT [facility] [address] [facility] [place] [address] Impaired intestinal absorption (HCC) (Primary Dx); S/P biliopancreatic diversion with duodenal switch; BMI 70 and over, adult (HCC); Dietary counseling and surveillance 01/02/2025 Get Medical Advice General Surgery [address] [place] [address] Amina Light MD Question regarding a1c results 12/28/2024 3:00 PM EDT [facility] BMI PSYL [address] [place], [place] [id number] Dinah Perez, PhD Eating disorder, unspecified type (Primary Dx); Psychological factors affecting medical condition; Class 3 obesity (HCC) 12/28/2024 Get Medical Advice General Surgery [address] [place] [address] Amina Light MD Question regarding test results 12/21/2024 Travel 12/21/2024 Patient [facility] General Surgery BMI PSYL [address] [place] [address] Dinah Perez, PhD Reboot starting next week! 12/07/2024 Patient Msg General Surgery BMI PSYL [address] [facility] [place] [place] [address] Dinah Perez, PhD Reboot opening 12/06/2024 Get Medical Advice General Surgery [address] [place] [address] Amina Light MD Follow up 11/29/2024 11:00 AM EDT [facility] General Surgery [address] [place] [address] Amina Light MD S/P biliopancreatic diversion with duodenal switch (Primary Dx); BMI 70 and over, adult (HCC); TONEY (obstructive sleep apnea) 11/23/2024 Abstract BMI [facility] REJ [address] [place], [place] [id number] Amina Light MD 11/16/2024 Travel from Last 3 Months Immunizations Immunization Administration Dates Next Due Haemophilus influenzae b (Hi b PRP-T) vaccine, 4-dose series (ACTHIB, HIBERIX) 12/18/2014 hepatitis B (HepB) vaccine ( ENGERIX-B, RECOMBIVAX HB) 04/04/2019,03/02/2019 influenza (HD-IIV3) vaccine, age 65+ yr, high dose, trivalent, PF (FLUZONE HIGH-DOSE) 05/30/2019 influenza (IIV4) vaccine, ag e 6 mo - 64 yr, quadrivalent, PF (AFLURIA, FLUARIX, FLULAVAL, FLUZONE) 06/20/2019,06/07/2019,05/12/2017 influenza (ccIIV3) vaccine, age 6+ mo, trivalent, PF (FLUCELVAX) 04/27/2015 influenza (ccIIV4) vaccine, age 6+ mo, quadrivalent, PF (FLUCELVAX) 06/13/2021 meningococcal (MenACWY-CRM) vaccine, quadrivalent (MENVEO) 01/04/2020,12/18/2014 pneumococcal conjugate (PCV1 3) vaccine, 13 valent (PREVNAR 13) 01/02/2020 tetanus diphtheria pertussis (Tdap) vaccine, age 7+ yr (ADACEL, BOOSTRIX) 08/11/2019 tuberculin skin test (TST-PP D), purified protein derivative, intradermal 01/02/2020,12/26/2019 Family History Medical History Relation Comments None Daughter Diabetes Father HTN; Lymphoma Obesity Father Obesity Mother Thyroid Mother hypothyrodism Stroke Paternal Grandfather Diabetes Paternal Grandmother Diabetes Paternal Uncle Migraines [Other] Sister Obesity Sister None Son Difficulty with anesthesia No Family History Relation Status Comments Daughter Father Mother Paternal Grandfather Paternal Grandmother Paternal Uncle Sister Son Social History Tobacco Use Types Packs/Day Years Used Date Smoking Tobacco: Former Cigarettes 0.5 5 0 12/27/2008 - 12/27/2013 Smokeless Tobacco: Never Tobacco Cessation:Counseling Given: Not Answered Alcohol Use Standard Drinks/Week Comments Not Currently 0 (1 standard drink = 0.6 oz pur e alcohol) None since 2012 [facility] Utilities Answer Date Recorded In the past 12 months has th e [employer], gas, oil, or water [employer] threatened to shut off services in your home? No 08/05/2023 Overall Financial Resource Strain (CARDIA) Answe r Date Recorded How hard is it for you to pa y for the very basics like food, housing, medical care, and heating? Not hard at all 08/05/2023 PHQ-2 Answer Date Recorded PHQ-2 score 3 02/15/2025 Hunger Vital Sign Answer Date Recorded Within [...] place to sleep or slept in a chcf (including now)? No 08/05/2023 Area Deprivation Index Answer Date Wesley rded National Score (1-100), lower number is lower ri sk 64 01/15/2023 State Score (1-10), lower number is lower risk 4 01/15/2023 Data from: https://www.neighborhoodatlas.medicine.[facility] [place] Last address used for calculation [address] 01/15/2023 Comments No Sex and Gender Information Value Date Recorded Sex Assigned at Female 07/09/2021 1:06 PM EST Legal Sex Female 10:14 AM EST Gender Identity Female 07/09/2021 1:06 PM EST Sexual Orientation Straight 07/09/2021 1: 06 PM EST Last Filed Vital Signs Vital Sign Reading Time Taken Comments Blood Pressure 107/81 09/07/2023 9:30 AM EDT Pulse 80 09/07/2023 9:30 AM EDT Temperature 36.7 C (98 F) 09/07/2023 9:30 AM EDT Respiratory Rate 18 08/11/2023 7:43 AM EST Oxygen Saturation 97% 08/17/2023 9:52 AM EST Inhaled Oxygen Concentration - - Weight 189.1 kg (417 lb) 02/06/2025 2:48 PM EDT Height 162.6 cm (5' 4 ) 02/06/2025 2:48 PM EDT Body Mass Index 71.58 02/06/2025 2:48 PM EDT Plan of Treatment Upcoming Encounters Date Type Department Care Team (Latest Contact Info) Description 02/16/2025 1:45 PM EDT [facility] BMI [facility] REJ [address] [place] [address] Amina Light MD [address] [place] [address] follow-up weight management 03/06/2025 3:00 PM EDT [facility] General Surgery BMI PSYL [address] [place] [address] Dinah Perez, PhD [address] [place] [address] Exploring your relationship with food 03/13/2025 3:00 PM EDT [facility] BMI PSYL [address] [place] [address] Dinah Perez, PhD [address] [place] [address] Emotional eating 03/20/2025 3:00 PM EDT [facility] BMI [address] [place] [address] Lolis Mejía, RD [address] [place] [address] Protein and Fluids Health Maintenance Due Date Last Done Comments Diabetic Foot Exam 1995 Dilated Retinal Exam 1995 Urine Albumin:Creatinine Ratio 1995 Annual PCP Team Chronic Dise ase Visit 2003 Anxiety Screening 2003 Depression Screening 2003 HIV Screening 2003 Hepatitis C Screening 2003 LDL Cholesterol 11/27/2007 11/26/2006 Cervical Cancer Screening 10/15/2009 10/15/2006 HPV Vaccine (1 - 3-dose SCDM series) 2012 Hepatitis B Vaccine (3 of 3 - 19+ 3-dose series) 08/31/2019 04/04/2019, 03/02/2019 Pneumococcal Vaccine (2 of 2 - PPSV23, PCV20, or PCV21) 02/27/2020 01/02/2020 Influenza Vaccine (#1) 2025 , 06/13/2021, 06/20/2019, Additional history exists HbA1C 06/29/2025 12/27/2024, 11/0 06/2023, 10/28/2023 DTaP,Tdap,Td Vaccine (2 - Td or Tdap) 08/11/2029 08/11/2019 Procedures Procedure Name Priority Date/Time Associated Diagnosis Comments VITAMIN B1 (THIAMINE), WHOLE BLOOD Routine 12/27/2024 12:41 PM EDT S/P biliopancreatic diversion with duodenal switch BMI 70 and over, adult (HCC) TONEY (obstructive sleep apnea) ZINC BLD Routine 12/27/2024 12:41 PM EDT S/P biliopancreatic diversion with duodenal switch BMI 70 and over, adult (HCC) TONEY (obstructive sleep apnea) VITAMIN D 25 HYDROXY Routine 12/27/2024 12:41 PM EDT S/P biliopancreatic diversion with duodenal switch BMI 70 and over, adult (HCC) TONEY (obstructive sleep apnea) VITAMIN B12 BLOOD Routine 12/27/2024 12: 41 PM EDT S/P biliopancreatic diversion with duodenal switch BMI 70 and over, adult (HCC) TONEY (obstructive sleep apnea) VITAMIN A/RETINOL Routine 12/27/2024 12: 41 PM EDT S/P biliopancreatic diversion with duodenal switch BMI 70 and over, adult (HCC) TONEY (obstructive sleep apnea) TSH BLD Routine 12/27/2024 12:41 PM EDT S/P biliopancreatic diversion with duodenal switch BMI 70 and over, adult (HCC) TONEY (obstructive sleep apnea) PTH INTACT BLD Routine 12/27/2024 12:41 PM EDT S/P biliopancreatic diversion with duodenal switch BMI 70 and over, adult (HCC) TONEY (obstructive sleep apnea) IRON + TIBC Routine 12/27/2024 12:41 PM EDT S/P biliopancreatic diversion with duodenal switch BMI 70 and over, adult (HCC) TONEY (obstructive sleep apnea) HEMOGLOBIN A1C Routine 12/27/2024 12:41 PM EDT S/P biliopancreatic diversion with duodenal switch BMI 70 and over, adult (HCC) TONEY (obstructive sleep apnea) FOLATE SERUM Routine 12/27/2024 12:41 PM EDT S/P biliopancreatic diversion with duodenal switch BMI 70 and over, adult (HCC) TONEY (obstructive sleep apnea) LIPID PANEL, FASTING 11/26/2006 3:00 PM EDT PAP FLUID CERVICAL SCREENING Routine 10/15/2006 2:18 PM EDT Screening Mal Neop-Cervix from Last 3 Months or Most Recently Relevant to Health Maintenance Results * (ABNORMAL) VITAMIN B1 (THIAMINE), WHOLE BLOOD (12/27/2024 12:41 PM EDT) Vitamin B1 (Thiamine diphosphate), Whole Blood 270.7(H) 84.3 - 213.3 nmol/L 12/29/2024 10:53 AM EDT [facility] Comment: This assay measures the concentration of thiamine diphosphate (TDP), the primary active form of vitamin B1. Approximately 90 percent of vitamin B1 present in whole blood is TDP. Thiamine and thiamine monophosphate, which comprise the remaining 10 percent, are not measured. This test was developed, and its performance characteristics determined by the [facility] Department of Pathology and Laboratory Medicine. It has not been cleared or approved by the FDA. The [facility] Department of Pathology and Laboratory Medicine is regulated under CLIA as qualified to perform high- complexity testing. This test is used for clinical purposes. It should not be regarded as investigational or for research. Blood BLOOD SPECIMEN / Unknown Venipuncture / Unknown 12/27/2024 12:41 PM EDT 12/27/2024 12:41 PM EDT us Amina Light MD LABORATORY Final Result [facility] [address] [place] [address], * (ABNORMAL) ZINC BLD (12/27/2024 12:41 PM EDT) Zinc 54(L) 60 - 120 ug/dL 12/28/2024 12:41 PM EDT [facility] Comment:This test was rosa rodriguez, and its performance characteristics determined by the [facility] Department of Pathology and Laboratory Medicine. It has not been cleared or approved by the FDA. The [facility] Department of Pathology and Laboratory Medicine is regulated under CLIA as qualified to perform high- complexity testing. This test is used for clinical purposes. It should not be regarded as investigational or for research. Blood BLOOD SPECIMEN / Unknown Venipuncture / Unknown 12/27/2024 12:41 PM EDT 12/27/2024 12:41 PM EDT Amina Light MD LABORATORY Final Result [facility] [address] [id number], [place] * (ABNORMAL) VITAMIN D 25 HYDROXY (12/27/2024 12:41 PM EDT) Vitamin D 25 Hydroxy 24.3(L) 31.0 - 80.0 ng/mL 12/28/2024 11:37 AM EDT [facility] Blood BLOOD SPECIMEN / Unknown Venipuncture / Unknown 12/27/2024 12:41 PM EDT 12/27/2024 12:41 PM EDT Amina Light MD LABORATORY Final Result Performing Organization Address City/[facility]/ZIP Co de Phone Number [facility] [address] [id number], [place] * VITAMIN B12 (12/27/2024 12:41 PM EDT) Vitamin B12 655 232 - 1,245 pg/mL 12/28/2024 4:57 AM EDT [facility] Blood BLOOD SPECIMEN / Unknown Venipuncture / Unknown 12/27/2024 12:41 PM EDT 12/27/2024 12:41 PM EDT Amina Light MD LABORATORY Final Result Performing Organization Address City/[facility]/ZIP Co de Phone Number [facility] [address] [id number], [place] * VITAMIN A/RETINOL (12/27/2024 12:41 PM EDT) Vitamin A 0.60 0.30 - 1.20 mg/L 01/04/2025 11:07 AM EDT [facility] Comment: Test performed at [facility] in [place], [place]. This test was developed and its performance characteristics determined by [employer]. It has not been cleared or approved by the [place] Food and Drug Administration. This test was performed in a CLIA certified laboratory and is intended for clinical purposes. Blood BLOOD SPECIMEN / Unknown Venipuncture / Unknown 12/27/2024 12:41 PM EDT 12/27/2024 12:41 PM EDT us Amina Light MD LABORATORY Final Result Performing Organization Address City[facility] Co de Phone Number [facility] [address] [place] [address], * THYROID STIMULATING HORMONE (12/27/2024 12:41 PM EDT) TSH 3.540 0.270 - 4.200 mIU/L 12/28/2024 3:56 AM EDT [facility] Comment: If the patient is , TSH reference range varies by gestational period: First Trimester (weeks 9-12): 0.180-2.990 mIU/L Second Trimester: 0.110-3.980 mIU/L Third Trimester: 0.480-4.710 mIU/L Jacoby Rush, et al. A Practical Approach for the Verifications and Determination of Site- and Trimester-Specific Reference Intervals for Thyroid Function tests in . Thyroid, 2019:29:3:412-420. Amos Lyles, et al. 2017 Guidelines of the [place] [employer] for the Diagnosis and Management of Thyroid Disease during and the . Thyroid, 2017:27:3:315-389. Blood BLOOD SPECIMEN / Unknown Venipuncture / Unknown 12/27/2024 12:41 PM EDT 12/27/2024 12:41 PM EDT us Amina Light MD LABORATORY Final Result Performing Organization Address City/[facility]/ZIP Co de Phone Number [facility] [address] [address], [place] * PTH INTACT (12/27/2024 12:41 PM EDT) PTH, Intact 47 15 - 65 pg/mL 12/28/2024 3:55 AM EDT [facility] Blood BLOOD SPECIMEN / Unknown Venipuncture / Unknown 12/27/2024 12:41 PM EDT 12/27/2024 12:41 PM EDT Amina Light MD LABORATORY Final Result Performing Organization Address City/[facility]/ZIP Co de Phone Number [facility] [address] [address], [place] * IRON AND TIBC (12/27/2024 12:41 PM EDT) Iron 71 41 - 186 ug/dL 12/28/2024 3:50 AM EDT [facility] TIBC 362 232 - 386 ug/dL 12/28/2024 3:50 AM EDT [facility] Transferrin Saturation 19.6 15.0 - 57.0 % 12/28/2024 3:50 AM EDT [facility] Blood BLOOD SPECIMEN / Unknown Venipuncture / Unknown 12/27/2024 12:41 PM EDT 12/27/2024 12:41 PM EDT Amina Light MD LABORATORY Final Result [facility] [address] [address], [place] * (ABNORMAL) HEMOGLOBIN A1C (12/27/2024 12:41 PM EDT) Hemoglobin A1C 7.1(H) 4.3 - 5.6 % 12/28/2024 6:02 AM EDT [facility] Comment:[place] [employer] sociation guidelines indicate that patients with HgbA1c in the range 5.7-6.4% are at increased risk for development of diabetes, and intervention by lifestyle modification may be beneficial. HgbA1c greater or equal to 6.5% is considered diagnostic of diabetes. Estimated Average Glucose 157 mg/dL 12/28/2024 6:02 AM EDT [facility] Comment:eAG: (Estimated aver age glucose) is a calculated value from HgbA1c and is outside sales representative of the average blood glucose level in the last 2-3 month period. Blood BLOOD SPECIMEN / Unknown Venipuncture / Unknown 12/27/2024 12:41 PM EDT 12/27/2024 12:41 PM EDT Amina Light MD LABORATORY Final Result Performing Organization Address [facility] Co de Phone Number [facility] [place] [address], * FOLATE, SERUM (12/27/2024 12:41 PM EDT) Folate >20.0 >4.7 ng/mL 12/28/2024 4:57 AM EDT [facility] Comment: A result of > 20 ng/mL is not necessarily indicative of a pathologic or treatable condition: it reflects a limitation of the test methodology. Assay reference range: 4.8 to 24.2 ng/mL. Suitable for detection of folate deficiency. Reference: Folate III (Folate III) [package insert V 1.0 Divehi]. [facility], [place], [place]: April 2015. Blood BLOOD SPECIMEN / Unknown Venipuncture / Unknown 12/27/2024 12:41 PM EDT 12/27/2024 12:41 PM EDT Amina Light MD LABORATORY Final Result Performing Organization Address [facility]/ZIP Co de Phone Number [facility] [address] [phone], * LIPID PANEL BASIC (11/26/2006 3:00 PM EDT) Cholesterol, Total 161 MG/DL [facility] Comment: Desirable level: <200 mg/dL Borderline : 200 - 240 mg/dL High risk : >240 mg/dL Triglyceride 93 0 - 150 MG/DL [facility] HDL Cholesterol 38 MG/DL [facility] Comment: Major risk factor for CHD : <40 mg/dl. Negative risk factor for CHD: >=60 mg/dl. VLDL-Cholesterol 19 MG/DL [facility] LDL Cholesterol, Calculated 104 MG/DL [facility] Comment: Optimal : <100 mg/dL Near/Above Optimal: 100 - 129 mg/dL Borderline High : 130 - 159 mg/dL High : 160 - 189 mg/dL Very High : >=190 mg/dL TC:HDL Ratio 4.2 0.0 - 4.5 [facility] 11/26/2006 3:00 PM EDT 11/26/2006 6:37 PM EDT Rad[facility](Historical) [facility] Final Result [facility] [address] [place] [address] * PAP FLUID CERVICAL SCREENING (10/15/2006 2:18 PM EDT) Cytology Report Specimen #: [id number] Submitting Physician: LORRIE KIRKLAND M.D. ([id number]) SPECIMEN SUBMITTED A: CERVICAL,SCREENING ,FLUID FINAL DIAGNOSIS A. CERVICAL,SCREENING ,FLUID SATISFACTORY FOR INTERPRETATION. NO ENDOCERVICAL COMPONENT NEGATIVE FOR INTRAEPITHELIAL LESION OR MALIGNANCY. This specimen has been analyzed by the ThinPrep Imaging System (Decisyon), an automated imaging and review system, which assists the laboratory in evaluating cells on ThinPrep Pap tests. Following automated imaging, selected wolff from every slide are reviewed by a timber trimmer. EUSEBIA Pérez(ASCP) Electronic Signature CLINICAL DATA Date of Last Menstrual Period: 09/29/06 Clinical History: ROUTINE Additional Testing: Reflex HPV testing for ASCUS result Miguelina Aguiar M.D., Blueprint Clerk : 1985 (Age: 21) F Date of Report: 10/19/2006 Date of Procedure: 10/15/2006 Date of Receipt: 10/15/2006 Submitted by: LORRIE KIRKLAND M.D. ([id number]) Additional Physician(s): Location: A81 [facility] Specimen from uterine cervix (specimen) CERVICAL / Unknown 10/15/2006 2:18 PM EDT 10/15/2006 2:18 PM EDT Lorrie Kirkland MD CYTOLOGY Final Result Performing Organization Address City/State/[facility] Co az Phone Number [facility] [address] [place] [address] from Last 3 Months or Most Recently Relevant to Health Maintenance Insurance [employer] [place] Care Teams Sumo Wrestler Relationship Specialty Start Date End Date Elizabet Dodd DO [address] [place] [address] PCP - General Family Medicine 04/16/22 Lolis Mejía, BRENDON [address] [place] [address] [facility] 02/07/25
--- OUTSIDE RECORDS SUMMARY | 2025-02-15 18:31 | XMS_ITS | Encounter Summary ---
Author Organization [facility] Address [address] [place] [address] Care Team Providers Care Cellular Plastics Cutter Name Role Phone Elizabet Dodd DO Primary Care Provider [phone] Lolis Mejía RD Unavailable Unavailable Source Comments In the event this information is protected by the Federal Confidentiality of Alcohol and Drug AbusePatient Records regulations: The Federal rules restrict any use of the information to criminally investigate or prosecute any alcohol or drug abuse patient.[facility] Encounter Details Date Type Department Care Team (Late st Contact Info) Description 09/25/2022 Patient Msg General Surgery [address] [place] [address] Provider, [facility] Bariatrics patient navigator information Social History Tobacco Use Types Packs/Day Years Used Date Smoking Tobacco: Former Cigarettes 0.5 5 0 12/27/2008 - 12/27/2013 Smokeless Tobacco: Never Alcohol Use Standard Drinks/Week Comments Not Currently 0 (1 standard drink = 0.6 oz pur e alcohol) None since 2012 PHQ-2 Answer Date Recorded PHQ-2 score 0 06/28/2022 Area Deprivation Index Answer Date Wesley rded National Score (1-100), lower number is lower ri sk 63 07/14/2022 State Score (1-10), lower number is lower risk N ot on file 07/14/2022 Data from: https://www.neighborhoodatlas.medicine.[facility]/. Last address used for calculation [address] 07/14/2022 Comments No Sex and Gender Information Value Date Recorded Sex Assigned at Female 07/09/2021 1:06 PM EST Legal Sex Female 10:14 AM EST Gender Identity Female 07/09/2021 1:06 PM EST Sexual Orientation Straight 07/09/2021 1: 06 PM EST documented as of this encounter Functional Status * Are you deaf or do you have serious difficulty hearing? Answer Date of Assessment Author No 10/09/2015 10:58 AM Ken James RN * Are you blind or do you have serious difficulty seeing, even when wearing glasses? Answer Date of Assessment Author No 10/09/2015 10:58 AM Ken James RN * Do you have serious difficulty walking or climbing stairs? Answer Date of Assessment Author No 10/09/2015 10:58 AM Ken James RN * Do you have difficulty dressing or bathing? Answer Date of Assessment Author No 10/09/2015 10:58 AM Ken James RN * Because of a physical, mental, or emotional condition, do you have difficulty doing errands alone such as visiting a doctor's office or shopping? Answer Date of Assessment Author No 10/09/2015 10:58 AM Ken James RN documented as of this encounter Mental Status * Because of a physical, mental, or emotional condition, do you have serious difficulty concentrating, remembering, or making decisions? Answer Entry Date Author No 10/09/2015 10:58 AM Ken James RN documented in this encounter Plan of Treatment Upcoming Encounters Date Type Department Care Team (Latest Contact Info) Description 02/16/2025 1:45 PM EDT [facility] BMI C REJ [address] [place], [place] [id number] Amina Light MD [address] [place] [address] follow-up weight management 03/06/2025 3:00 PM EDT [facility] BMI PSYL [address] [place] [address] Dinah Perez, PhD [address] [place] [address] Exploring your relationship with food 03/13/2025 3:00 PM EDT [facility] BMI PSYL [address] [place] [address] Dinah Perez, PhD [address] [place] [address] Emotional eating 03/20/2025 3:00 PM EDT [facility] BMI [address] [place] [address] Lolis Mejía RD [address] [place] [address] Protein and Fluids documented as of this encounter Visit Diagnoses Not on filedocumented in this encounter Care Teams Cellular Plastics Cutter Relationship Specialty Start Date End Date Elizabet Dodd DO [address] [place] [address] PCP - General Family Medicine 04/16/22 Lolis Mejía RD [address] [place] [address] Nutrition 02/07/25 documented as of this encounter
--- OUTSIDE RECORDS SUMMARY | 2025-02-15 18:31 | XMS_ITS | Encounter Summary ---
Author Organization [facility] Address [address] [place] [address] Care Team Providers Care Customs Director Name Role Phone LucasGeneva whitaker Viviane ALANIZ Primary Care Provider [phone] Elizabet Dodd DO Primary Care Provider [phone] Lolis Mejía RD Unavailable Unavailable Source Comments In the event this information is protected by the Federal Confidentiality of Alcohol and Drug AbusePatient Records regulations: The Federal rules restrict any use of the information to criminally investigate or prosecute any alcohol or drug abuse patient.[facility] Encounter Details Date Type Department Care Team (Late st Contact Info) Description 10/08/2021 Patient Msg General Surgery [address] [place] [address] Provider, [facility]cf Nutrition Summary Social History Tobacco Use Types Packs/Day Years Used Date Smoking Tobacco: Former Cigarettes 0.5 5 0 12/27/2008 - 12/27/2013 Smokeless Tobacco: Never Alcohol Use Standard Drinks/Week Comments Not Currently 0 (1 standard drink = 0.6 oz pur e alcohol) None since 2012 PHQ-2 Answer Date Recorded PHQ-2 score 0 08/19/2021 Area Deprivation Index Answer Date Wesley rded National Score (1-100), lower number is lower ri sk Not on file 2020 State Score (1-10), lower number is lower risk N ot on file 2020 Data from: https://www.neighborhoodatlas.medicine.[facility]/. Last address used for calculation Not on file 2020 Comments No Sex and Gender Information Value [...] 02/16/2025 1:45 PM EDT [facility] REJ [address] [place], [place] [id number] Amina Light MD [address] [place] [address] follow-up weight management 03/06/2025 3:00 PM EDT [facility] BMI PSYL [address] [place] [address] Dinah Perez, PhD [address] [place] [address] Exploring your relationship with food 03/13/2025 3:00 PM EDT [facility] BMI PSYL [address] [place] [address] Dinah Perez, PhD [address] [place] [address] Emotional eating 03/20/2025 3:00 PM EDT [facility] BMI [address] [place] [address] Lolis Mejía RD [address] [place] [address] Protein and Fluids documented as of this encounter Visit Diagnoses Not on filedocumented in this encounter Care Teams Customs Director Relationship Specialty Start Date End Date Geneva Estrada, CUSTOMER RECORDS DIVISION SUPERVISOR [address] [place] [address] PCP - General Family Medicine 10/01/11 04/15/22 Elizabet Dodd DO [address] [place] [address] PCP - General Family Medicine 04/16/22 Lolis Mejía RD [address] [place] [address] Nutrition 02/07/25 documented as of this encounter
--- OUTSIDE RECORDS SUMMARY | 2025-02-15 18:31 | XMS_ITS | Encounter Summary ---
Author Organization [facility] Address [address] [place] [address] Care Team Providers Care Tour Actor Name Role Phone LucasGeneva whitaker Viviane ALANIZ Primary Care Provider [phone] Elizabet Dodd DO Primary Care Provider [phone] Lolis Mejía RD Unavailable Unavailable Source Comments In the event this information is protected by the Federal Confidentiality of Alcohol and Drug AbusePatient Records regulations: The Federal rules restrict any use of the information to criminally investigate or prosecute any alcohol or drug abuse patient.[facility] Encounter Details Date Type Department Care Team (Late st Contact Info) Description 11/04/2021 Patient Msg BMI [facility] REJ [address] [place], [place] [id number] Provider, Ccf Nutrition Summary Social History Tobacco [...] N ot on file 2020 Data from: https://www.neighborhoodatlas.medicine.[facility]/. Last address used for calculation Not on file 2020 Comments No Sex and Gender Information Value Date Recorded Sex Assigned at Female 07/09/2021 1:06 PM EST Legal Sex Female 10:14 AM EST Gender Identity Female 07/09/2021 1:06 PM EST Sexual Orientation Straight 07/09/2021 1: 06 PM EST COVID-19 Exposure Response Date Recorded In the last 10 days, have yo u been in contact with someone who was confirmed or suspected to have Coronavirus/COVID-19? No / Unsure 11/04/2021 11:06 AM EDT documented as of this encounter Functional Status [...] PM EDT [facility] BMI [facility] REJ [address] [place] [address] Amina Light MD [address] [place] [address] follow-up weight management 03/06/2025 3:00 PM EDT [facility] General Surgery BMI PSYL [address] [place] [address] Dinah Perez, PhD [address] [place] [address] Exploring your relationship with food 03/13/2025 3:00 PM EDT [facility] Surgery BMI PSYL [address] [place] [address] Dinah Perez, PhD [address] [place] [address] Emotional eating 03/20/2025 3:00 PM EDT [facility] Surgery BMI [address] [place] [address] Lolis Mejía RD [address] [place] [address] Protein and Fluids documented as of this encounter Visit Diagnoses Not on filedocumented in this encounter Care Teams Tour Actor Relationship Specialty Start Date End Date Geneva Estrada, REMOTE BROADCAST TECHNICIAN [address] [place] [address] PCP - General Family Medicine 10/01/11 04/15/22 Elizabet Dodd DO [address] [place] [address] PCP - General Family Medicine 04/16/22 Lolis Mejía RD [address] [place] [address] Nutrition 02/07/25 documented as of this encounter
--- OUTSIDE RECORDS SUMMARY | 2025-02-15 18:31 | XMS_ITS | Encounter Summary ---
Author Organization [facility] Address [address] [place] [address] Care Team Providers Care Telephone Information Supervisor Name Role Phone Elizabet Dodd DO Primary Care Provider Lolis Mejía RD Unavailable Unavailable Source Comments In the event this information is protected by the Federal Confidentiality of Alcohol and Drug AbusePatient Records regulations: The Federal rules restrict any use of the information to criminally investigate or prosecute any alcohol or drug abuse patient.[facility] Encounter Details Date Type Department Care Team (Late st Contact Info) Description 11/11/2024 Patient Msg Pre Anesthesia [address] [place] [address] Provider, Lin Pre-Anesthesia Consult Clinic appointment (REQUIRED) Social History Tobacco Use Types Packs/Day Years Used Date Smoking Tobacco: Former Cigarettes 0.5 5 0 12/27/2008 - 12/27/2013 Smokeless Tobacco: Never Alcohol Use Standard Drinks/Week Comments Not Currently 0 (1 standard drink = 0.6 oz pur e alcohol) None since 2012 [facility] Utilities Answer Date Recorded In the past 12 months has [employer] gas, oil, or water [employer] threatened to shut off services in your home? No 08/05/2023 Overall Financial Resource Strain (CARDIA) Answe r Date Recorded How hard is it for you to pa y for the very basics like food, housing, medical care, and heating? Not hard at all 08/05/2023 PHQ-2 Answer Date Recorded PHQ-2 score 1 08/26/2023 Hunger Vital Sign Answer Date Recorded Within the past 12 months, y ou worried that your food would run out before you got the money to buy more. Never true 08/05/19 24 Within the past 12 months, t he food you bought just didn't last and you didn't have money to get more. Never true 08/05/2023 PRAPARE - Transportation Answer Date Re corded [...] place to sleep or slept in a long term (including now)? No 08/05/2023 Area Deprivation Index Answer Date Wesley rded National Score (1-100), lower number is lower ri sk 64 01/15/2023 State Score (1-10), lower number is lower risk 4 01/15/2023 Data from: https://www.neighborhoodatlas.medicine.[facility].edu/. Last address used for calculation [address] [...] Kira Sanchez RN documented in this encounter Plan of Treatment Upcoming Encounters Date Type Department Care Team (Latest Contact Info) Description 02/16/2025 1:45 PM EDT [facility] BMI FHC REJ [address] [place] [address] Amina Light MD [address] [place] [address] follow-up weight management 03/06/2025 3:00 PM EDT [facility] General Surgery BMI PSYL [address] [place] [address] Dinah Perez, PhD [address] [place] [address] Exploring your relationship with food 03/13/2025 3:00 PM EDT [facility] General Surgery BMI PSYL [address] [place] [address] Dinah Perez, PhD [address] [place] [address] Emotional eating 03/20/2025 3:00 PM EDT [facility] General Surgery BMI [address] [place] [address] Lolis Mejía RD [address] [place] [address] Protein and Fluids documented as of this encounter Visit Diagnoses Not on filedocumented in this encounter Care Teams Telephone Information Supervisor Relationship Specialty Start Date End Date Elizabet Dodd DO [address] [place] [address] PCP - General Family Medicine 04/16/22 Lolis Mejía RD [address] [place] [address] Nutrition 02/07/25 documented as of this encounter
--- OUTSIDE RECORDS SUMMARY | 2025-02-15 18:31 | XMS_ITS | Clinical Summary ---
Author Organization [employer] Address [facility] [id number] [place] [address] Care Team Providers Care Senior Research Executive Name Role Phone Services, [facility] Primary Care Provider Allergies Active Allergy Reactions Criticality Noted Date Comments Adhesive Rash Low 10/10/2016 OK TO USE PAPER TAPE Amoxicillin-Pot Clavulanate Diarrhea,GI Disturbance Medium 10/10/2016 Cephalexin Rash Low 10/11/2021 Penicillins Rash Low 05/29/2017 Tramadol Hives Medium 10/10/2016 Medications acetaminophen (TYLENOL) 325 mg tablet Take 2 tablets (650 mg total) by mouth every 6 (six) hours as needed for pain. Active VITAMIN PLUS LOW IRON 27 mg iron- 1 mg tablet TAKE 1 TABLET BY MOUTH DAILY 90 tablet 3 9 Active ARIPiprazole (ABILIFY) 5 mg tablet Take 3 tablets (15 mg total) by mouth nightly. Active busPIRone (BUSPAR) 15 mg tablet Take 1 tablet (15 mg total) by mouth in the morning and 1 tablet (15 mg total) before bedtime. Active DULoxetine (CYMBALTA) 60 mg capsule Take 1 capsule (60 mg total) by mouth in the morning. Active famotidine (PEPCID) 20 mg tablet Take 1 tablet (20 mg total) by mouth Daily at 0700. Active propranoloL (INDERAL) 60 mg tablet Take 1 tablet (60 mg total) by mouth in the morning and 1 tablet (60 mg total) before bedtime. Active cetirizine (ZyrTEC) 10 mg tablet Take 1 tablet (10 mg total) by mouth in the morning. Active hydroCHLOROthiazide (HYDRODIURIL) 12.5 mg tablet Take 1 tablet (12.5 mg total) by mouth daily. Active lamoTRIgine (LaMICtal) 100 mg tabletIndications:b ipolar disorder in remission Take 1 tablet (100 mg total) by mouth in the morning. Indications: bipolar disorder in remission. Active rizatriptan HOT STAMP OPERATOR (MAXALT-HOT STAMP OPERATOR) 10 mg disintegrating tablet Dissolve 1 tablet (10 mg total) on tongue once as needed. 4 Active montelukast (SINGULAIR) 10 mg tablet Take 1 tablet (10 mg total) by mouth in the morning. Active omeprazole (PriLOSEC) 40 mg capsule Take 1 capsule (40 mg total) by mouth every morning before breakfast. 4 Active OXcarbazepine (TRILEPTAL) 300 mg tablet Take 1 tablet (300 mg total) by mouth once daily at bedtime. 1.5 tabs 4 Active calcium citrate (CALCITRATE) 200 mg (950 mg) tablet Take 1 tablet (200 mg total) by mouth in the morning. Active cyclobenzaprine (FLEXERIL) 10 mg tablet Take 1 tablet (10 mg total) by mouth 2 (two) times a day as needed for muscle spasms. 10 tablet 4 Active HYDROcodone-acetami nophen (NORCO) 5-325 mg per tabletIndications:R ight ovarian cyst Take 1 tablet by mouth every 6 (six) hours as needed for pain. Max Daily Amount: 4 tablets 28 tablet 5 Active Active Problems Problem Noted Date Diagnosed Date Pelvic mass in female 08/03/2024 Morbid obesity 06/10/2017 Fatigue 10/10/2016 Gastroesophageal reflux disease without esophagi tis 10/10/2016 Resolved Problems Problem Noted Date Diagnosed Date Resolved Date Intra-abdominal abscess 08/29/201709/28 Gastric outlet obstruction 08/06/2017 0 10/16/2017 Gastric anastomotic leak 06/25/2017 Post-operative infection 06/21/2017 Morbid obesity with body mas s index (BMI) of 60.0 to 69.9 in adult 10/10/2016 07/20/2017 Obstructive sleep apnea syndrome 10/10/2016 10/16/2017 Essential hypertension 10/10/201610/16 Immunizations Immunization Administration Dates Next Due Tdap 08/11/2019 Family History Medical History Relation Name Comments Anesthesia problems Neg Hx Social History Tobacco Use Types Packs/Day Years Used Date Smoking Tobacco: Former Cigarettes 0.5 9 0 06/29/2004 - 06/29/2013 Smokeless Tobacco: Never Tobacco Cessation:Counseling Given: Not Answered Alcohol Use Standard Drinks/Week Comments No 0 (1 standard drink = 0.6 oz pur e alcohol) Overall Financial Resource Strain (CARDIA) Answe r Date Recorded How hard is it for you to pa y for the very basics like food, housing, medical care, and heating? Not hard at all 08/23/2024 PRAPARE - Transportation Answer Date Re corded In the past 12 months, has l ack of transportation kept you from medical appointments or from getting medications? No 07/31 In the past 12 months, has l ack of transportation kept you from meetings, work, or from getting things needed for daily living? No 08/23/2024 Housing Instability Answer Date Recorde d Are you worried or concerned that in the next two months you may not have stable housing that you own, rent or stay in as a part of a household? No 08/23/2024 Childcare Answer Date Recorded Childcare Unknown 12/08/2018 Employment Answer Date Recorded Employment Unknown 12/08/2018 Hunger Screening Answer Date Recorded Within the past 12 months we worried whether our food would run out before we got money to buy more. Never True 08/23/2024 Within the past 12 months th e food we bought just didn't last and we didn't have money to get more. Never True 08/23/2024 Purpose - Life Answer Date Recorded Purpose and direction in life Unknown Comments No Sex and Gender Information Value Date Recorded Sex Assigned at Not on file Legal Sex Female 11:28 AM EDT Gender Identity Not on file Sexual Orientation Not on file Last Filed Vital Signs Vital Sign Reading Time Taken Comments Blood Pressure 121/74 09/02/2024 10:57 AM EST Pulse 87 09/02/2024 10:57 AM EST Temperature 36.8 C (98.2 F) 09/02/2024 9:36 AM EST Respiratory Rate 16 09/02/2024 10:57 AM EST Oxygen Saturation 98% 09/02/2024 10:57 AM EST Inhaled Oxygen Concentration - - Weight 193.7 kg (427 lb) 09/02/2024 9:36 AM EST Height 162.6 cm (5' 4 ) 09/02/2024 9:36 AM EST Body Mass Index 73.29 09/02/2024 9:36 AM EST Plan of Treatment Health Maintenance Due Date Last Done Comments Depression Screening 1997 Adult BMI Follow Up Plan 2003 Pap Smear 04/17/2019 04/17/2016 COVID-19 Vaccine (3 - 2023-2 5 season) 2024 07/03/2021, 06/13/2021 Influenza Vaccine 02/27/2025 06/02/2024, , 06/20/2019, Additional history exists Adult BMI Screening 09/02/2025 09/02/2024 Tobacco Screening 09/02/2025 09/02/2024 DTaP,Tdap and Td Vaccines (2 - Td or Tdap) 08/11/2029 08/11/2019 Goals Goal Patient Goal Type Associated Problems Recent Progress Patient-Stated? Author Home General Yes Kirsty Tubbs, RN Note: Evaluation of progress towards goal: Patient's goal is to discharge to home. Medical Devices Implanted Type Area Environmental Sustainability Manager Device Identifier Shelf Expiration Date Model / Serial / Lot Stnt Esph 23mm 18.5fr 15.5cm - [id number] - [id number] Implanted:Qty: 1 on 06/26/2017 by Andrea Platt MD at [facility] [employer] [facility] 11/12/2018 [id number] / [id number] / [id number] Insurance [employer] [facility] MEDICAID Advance Directives * Full Code (Latest Code Status on File) Date Activated Date Inactivated Comments 08/06/2017 6:26 PM 08/18/2017 2:14 PM * Full Code Date Activated Date Inactivated Comments 08/06/2017 11:21 AM 08/06/2017 6:26 PM * Full Code Date Activated Date Inactivated Comments 06/10/2017 10:14 AM 06/12/2017 9:36 PM Care Teams Senior Research Executive Relationship Specialty Start Date End Date [facility], [place] [id number] [place], [place] PCP - General Family Medicine 04/06/24
--- OUTSIDE RECORDS SUMMARY | 2025-02-15 18:31 | XMS_ITS | Encounter Summary ---
Author Organization [facility] Address [facility] [place] [address] Care Team Providers Care Tin Flipper Name Role Phone Elizabet Dodd DO Primary Care Provider [phone] Lolis Mejía RD Unavailable Unavailable Source Comments In the event this information is protected by the Federal Confidentiality of Alcohol and Drug AbusePatient Records regulations: The Federal rules restrict any use of the information to criminally investigate or prosecute any alcohol or drug abuse patient.[facility] Reason for Visit * Reason Comments No Show Encounter Details Date Type Department Care Team (Late st Contact Info) Description 02/08/2025 Telephone Pre Anesthesia [address] [place] [address] Gloria Balderas APRN.[facility] [address] [place] [address] No Show Social History Tobacco Use Types Packs/Day Years Used Date Smoking Tobacco: Former Cigarettes 0.5 5 0 12/27/2008 - 12/27/2013 Smokeless Tobacco: Never Alcohol Use Standard Drinks/Week Comments Not Currently 0 (1 standard drink = 0.6 oz pur e alcohol) None since 2012 [facility] Utilities Answer Date Recorded In the [...] place to sleep or slept in a longterm (including now)? No 08/05/2023 Area Deprivation Index Answer Date Wesley rded National Score (1-100), lower number is lower ri sk 64 01/15/2023 State Score (1-10), lower number is lower risk 4 01/15/2023 Data from: https://www.neighborhoodatlas.medicine.[facility].edu/. Last address used for calculation [address] [...] Kira Sanchez RN documented in this encounter Miscellaneous Notes * Telephone Encounter - Gloria Balderas APRN.CNP - 02/08/2025 3:00 PM EDT Patient did not check in for the virtual [facility] appt today. We called the patient and unable to leavea message as the voicemail was full. Please reschedule the patient. Thank you, KRYS Monson documented in this encounter Plan of Treatment Upcoming Encounters Date Type Department Care Team (Latest Contact Info) Description 02/16/2025 1:45 PM EDT [facility] BMI [facility] REJ [address] [place], [place] [id number] Amina Light MD [address] [place] [address] follow-up weight management 03/06/2025 3:00 PM EDT [facility] BMI PSYL [address] [place] [address] Dinah Perez, PhD [address] [place] [address] Exploring your relationship with food 03/13/2025 3:00 PM EDT [facility] BMI PSYL [address] [place] [address] Dinah Perez, PhD [address] [place] [address] Emotional eating 03/20/2025 3:00 PM EDT [facility] BMI [address] [place] [address] Lolis Mejía RD [address] [place] [address] Protein and Fluids documented as of this encounter Visit Diagnoses Not on filedocumented in this encounter Care Teams Tin Flipper Relationship Specialty Start Date End Date Elizabet Dodd DO [address] [place] [address] PCP - General Family Medicine 04/16/22 Lolis Mejía RD [address] [place] [address] Nutrition 02/07/25 documented as of this encounter
--- OUTSIDE RECORDS SUMMARY | 2025-02-15 18:31 | XMS_ITS | Encounter Summary ---
Author Organization [facility] Address [address] [place] [address] Care Team Providers Care Lathe Scalper Operator Name Role Phone WestElizabet agndara DO Primary Care Provider [phone] Lolis Mejía RD Unavailable Unavailable Source Comments In the event this information is protected by the Federal Confidentiality of Alcohol and Drug AbusePatient Records regulations: The Federal rules restrict any use of the information to criminally investigate or prosecute any alcohol or drug abuse patient.[facility] Encounter Details Date Type Department Care Team (Late st Contact Info) Description 01/23/2025 Results Follow-Up BMI REPLACED BY [facility] REJ [address] [place], [place] [id number] Amina Light MD [address] [place] [address] Social History Tobacco Use Types Packs/Day Years Used Date Smoking Tobacco: Former Cigarettes 0.5 5 0 12/27/2008 - 12/27/2013 Smokeless Tobacco: Never Alcohol Use Standard Drinks/Week Comments Not Currently 0 (1 standard drink = 0.6 oz pur e alcohol) None since 2012 [facility] Utilities Answer Date Recorded In the past [...] PHQ-2 Answer Date Recorded PHQ-2 score 2 01/14/2025 Hunger Vital Sign Answer Date Recorded Within [...] place to sleep or slept in a jail (including now)? No 08/05/2023 Area Deprivation Index Answer Date Wesley rded National Score (1-100), lower number is lower ri sk 64 01/15/2023 State Score (1-10), lower number is lower risk 4 01/15/2023 Data from: https://www.neighborhoodatlas.medicine.[facility].edu/. Last address used for calculation [address] [...] Contact Info) Description 02/16/2025 1:45 PM EDT [facility] BMI [facility]HC REJ [address] [place] [address] Amina Light MD [address] [place] [address] follow-up weight management 03/06/2025 3:00 PM EDT [facility] General Surgery BMI PSYL [address] [place] [address] Dinah Perez, PhD [address] [place] [address] Exploring your relationship with food 03/13/2025 3:00 PM EDT [facility] General Surgery BMI PSYL [address] [place] [address] Dinah Perez, PhD [address] [place] [address] Emotional eating 03/20/2025 3:00 PM EDT [facility] Surgery BMI [address] [place] [address] Lolis Mejía RD [address] [place] [address] Protein and Fluids documented as of this encounter Visit Diagnoses Not on filedocumented in this encounter Care Teams Lathe Scalper Operator Relationship Specialty Start Date End Date Elizabet Dodd DO [address] [place] [address] PCP - General Family Medicine 04/16/22 Lolis Mejía, BRENDON [address] [place] [address] Nutrition 02/07/25 documented as of this encounter
--- OUTSIDE RECORDS SUMMARY | 2025-02-15 18:31 | XMS_ITS | Clinical Summary ---
Author Organization [facility] Address [address] [facility], [address] [place] [address] Care Team Providers Care Computer Education Professor Name Role Phone WestElizabet gandara Primary Care Provider [phone] Allergies Active Allergy Reactions Criticality Noted Date Comments Adhesive Tape Rash Low 10/10/2016 Amoxicillin-Pot Clavulanate Diarrhea,Oth er (See Comments) 10/10/2016 Penicillins Hives,Rash Low 05/29/2017 Tramadol Hives 10/10/2016 Medications DULoxetine (CYMBALTA) 60 MG extended release capsule TAKE 1 CAPSULE BY MOUTH DAILY 0 Active hydrOXYzine (VISTARIL) 50 MG capsule Take 50 mg by mouth Active loratadine (CLARITIN) 10 MG tablet Take 10 mg by mouth Active Vit-Fe Fumarate-FA ( VITAMIN PLUS LOW IRON) 27-1 MG TABS TAKE 1 TABLET BY MOUTH DAILY 0 Active propranolol (INDERAL) 20 MG tablet Take 20 mg by mouth Active QUEtiapine (SEROQUEL) 100 MG tablet TAKE 1 TABLET BY MOUTH AT BEDTIME 0 Active sucralfate (CARAFATE) 1 GM/10ML suspension Carafate 100 mg/mL oral suspension Active dicyclomine (BENTYL) 20 MG tablet Take 20 mg by mouth every 6 hours Active calcium citrate (CALCITRATE) 250 MG TABS tablet Take 500 mg by mouth daily Active Pantoprazole Sodium (PROTONIX PO) Take 40 mg by mouth Active famotidine (PEPCID) 20 MG tablet TAKE 1 TABLET BY MOUTH TWICE DAILY 0 Active lamoTRIgine (LAMICTAL) 100 MG tablet Take 100 mg by mouth daily Active busPIRone (BUSPAR) 5 MG tablet Take 5 mg by mouth 2 times daily Active Active Problems Patient Care Coordination No te Formatting of this note is d ifferent from the original. Surgeon: Lynda Molina wt: 347 HT: 5 4 Revision 3 Visits ITEM ORDERED DONE NOTES LAB WORK- DONE TREATED [x] [] [] [] Reordered labs 04/18/2020 PSYCH EVAL [x] [] EGD H. PYLORI-TREATED STOOL ORDERED [x] [] [] [x] [] [] Done 04/06/2020 neg h-pylori GBUS [] [] UGI [] [] BMI GT 50, Give Lovenox Rx [x] [] MEDICAL CLEARANCE [x] [] 2 WEEK PREOP DIET [x] [] 4 WEEK PREOP DIET [] [] LETTER OF MEDICAL NECESSITY [x] [] PRE OPERATIVE CLASS [x] [] EXERCISE LOG [x] [] NUTRITION GOALS [x] [x] SMOKING CESSATION [] [] OTHER: [] [] Problem Noted Date Diagnosed Date TONEY (obstructive sleep apnea) 02/17/2020 GERD without esophagitis 02/17/2020 Bipolar depression 02/17/2020 Morbid obesity with BMI of 60.0-69.9, adult 01/28 Intractable episodic headache 01/17/2017 Fever in adult 01/17/2017 Arthralgia of both knees 01/17/2017 Sleep-disordered breathing 01/17/2017 Leukocytosis 01/17/2017 Chronic midline low back pain without sciatica 0 01/17/2017 Degenerative disc disease, lumbar Family History Medical History Relation Name Comments Cancer Father Diabetes Father Relation Name Status Comments Father Social History Tobacco Use Types Packs/Day Years Used Date Smoking Tobacco: Former Smokeless Tobacco: Former Alcohol Use Standard Drinks/Week Comments No 0 (1 standard drink = 0.6 oz pur e alcohol) Comments No Sex and Gender Information Value Date Recorded Sex Assigned at Not on file Legal Sex Female 10:26 AM EDT Gender Identity Not on file Sexual Orientation Not on file Last Filed Vital Signs Vital Sign Reading Time Taken Comments Blood Pressure 122/70 07/24/2020 4:16 PM EST Pulse 84 07/24/2020 4:16 PM EST Temperature 36.2 C (97.2 F) 06/20/2020 3:33 PM EST Respiratory Rate 20 07/24/2020 4:16 PM EST Oxygen Saturation 100% 04/06/2020 9:25 AM EDT Inhaled Oxygen Concentration - - Weight 171 kg (377 lb) 07/24/2020 4:16 PM EST Height 162.6 cm (5' 4 ) 07/24/2020 4:16 PM EST Body Mass Index 64.71 07/24/2020 4:16 PM EST Plan of Treatment Not on file Insurance [employer] Advance Directives * Full Code (Latest Code Status on File) Date Activated Date Inactivated Comments 01/16/2017 11:20 PM 01/21/2017 5:23 PM Care Teams Computer Education Professor Relationship Specialty Start Date End Date Elizabet Dodd DO [address] [place] [address] PCP - General Family Medicine 08/26/19
--- OUTSIDE RECORDS SUMMARY | 2025-02-15 18:31 | XMS_ITS | Encounter Summary ---
Author Organization [facility] Address [address] [place] [address] Care Team Providers Care Doll Surgeon Name Role Phone Elizabet Dodd DO Primary Care Provider [phone] Lolis Mejía RD Unavailable Unavailable Source Comments In the event this information is protected by the Federal Confidentiality of Alcohol and Drug AbusePatient Records regulations: The Federal rules restrict any use of the information to criminally investigate or prosecute any alcohol or drug abuse patient.[facility] Encounter Details Date Type Department Care Team (Late st Contact Info) Description 12/15/2022 Patient Msg General Surgery [address] [place] [address] Provider, [facility] Nutrition Summary Social [...] Score (1-100), lower number is lower ri 64 12/15/2022 State Score (1-10), lower number is lower risk 4 12/15/2022 Data from: https://www.neighborhoodatlas.medicine.[facility]/. Last address used for calculation [address] 12/15/2022 Comments No Sex and Gender Information Value [...] 02/16/2025 1:45 PM EDT [facility] BMI [facility] REJ [address] [place], [place] [id number] Amina Light MD [address] [place] [address] follow-up weight management 03/06/2025 3:00 PM EDT [facility] BMI PSYL [address] [place] [address] Dinah Perez, PhD [address] [place] [address] Exploring your relationship with food 03/13/2025 3:00 PM EDT [facility] BMI PSYL [address] [place] [address] Dinah Perez, PhD [address] [place] [address] Emotional eating 03/20/2025 3:00 PM EDT [facility] BMI [address] [place] [address] Lolis Mejía RD [address] [place] [address] Protein and Fluids documented as of this encounter Visit Diagnoses Not on filedocumented in this encounter Care Teams Doll Surgeon Relationship Specialty Start Date End Date Elizabet Dodd DO [address] [place] [address] PCP - General Family Medicine 04/16/22 Lolis Mejía RD [address] [place] [address] Nutrition 02/07/25 documented as of this encounter
--- OUTSIDE RECORDS SUMMARY | 2025-02-15 18:31 | XMS_ITS | Encounter Summary ---
Author Organization [facility] Address [address] [place] [address] Care Team Providers Care Decatizer Name Role Phone LucasGeneva whitaker Viviane ALANIZ Primary Care Provider [phone] Elizabet Dodd DO Primary Care Provider [phone] Lolis Mejía RD Unavailable Unavailable Source Comments In the event this information is protected by the Federal Confidentiality of Alcohol and Drug AbusePatient Records regulations: The Federal rules restrict any use of the information to criminally investigate or prosecute any alcohol or drug abuse patient.[facility] Encounter Details Date Type Department Care Team (Late st Contact Info) Description 01/17/2022 Patient Msg General Surgery [address] [place] [address] Provider, [facility] Nutrition Summary Social [...] lower number is lower ri sk 63 12/05/2021 State Score (1-10), lower number is lower risk N ot on file 12/05/2021 Data from: https://www.neighborhoodatlas.medicine.[facility]/. Last address used for calculation [address] 12/05/2021 Comments No Sex and Gender Information Value [...] suspected to have Coronavirus/COVID-19? No / Unsure 12/18/2021 9:45 AM EDT documented as of this encounter [...] PM EDT [facility] BMI [facility] REJ [address] [place] [address] Amina Light MD [address] [place] [address] follow-up weight management 03/06/2025 3:00 PM EDT [facility] General Surgery BMI PSYL [address] [place] [address] Dinah Perez, PhD [address] [place] [address] Exploring your relationship with food 03/13/2025 3:00 PM EDT [facility] Surgery BMI PSYL [address] [place] [address] Dinah Perez, PhD [address] [place] [address] Emotional eating 03/20/2025 3:00 PM EDT [facility] Surgery BMI [address] [place] [address] Lolis Mejía RD [address] [place] [address] Protein and Fluids documented as of this encounter Visit Diagnoses Not on filedocumented in this encounter Care Teams Decatizer Relationship Specialty Start Date End Date Geneva Estrada, USABILITY ARCHITECT [address] [place] [address] PCP - General Family Medicine 10/01/11 04/15/22 Elizabet Dodd DO [address] [place] [address] PCP - General Family Medicine 04/16/22 Lolis Mejía RD [address] [place] [address] Nutrition 02/07/25 documented as of this encounter
--- OUTSIDE RECORDS SUMMARY | 2025-02-15 18:31 | XMS_ITS | Encounter Summary ---
Author Organization [facility] Address [address] [place] [address] Care Team Providers Care Welcome Wagon Host/Hostess Name Role Phone LucasGeneva whitaker Viviane ALANIZ Primary Care Provider [phone] Elizabet Dodd DO Primary Care Provider [phone] Lolis Mejía RD Unavailable Unavailable Source Comments In the event this information is protected by the Federal Confidentiality of Alcohol and Drug AbusePatient Records regulations: The Federal rules restrict any use of the information to criminally investigate or prosecute any alcohol or drug abuse patient.[facility] Encounter Details Date Type Department Care Team (Late st Contact Info) Description 10/09/2021 Patient Msg [facility] [address] [place], [place] [id number] Provider, Cccholo Welcome to the BMI Program! Social History Tobacco Use Types Packs/Day Years [...] N ot on file 2020 Data from: https://www.neighborhoodatlas.medicine.[facility]/. Last address used for calculation Not on [...] PM EDT Distance [facility] BMI C REJ [address] [place] [address] Amina Light MD [address] [place] [address] follow-up weight management 03/06/2025 3:00 PM EDT [facility] BMI PSYL [address] [place] [address] Dinah Perez, PhD [address] [place] [address] Exploring your relationship with food 03/13/2025 3:00 PM EDT [facility] BMI PSYL [address] [place] [address] Dinah Perez, PhD [address] [place] [address] Emotional eating 03/20/2025 3:00 PM EDT [facility] BMI [address] [place] [address] Lolis Mejía RD [address] [place] [address] Protein and Fluids documented as of this encounter Visit Diagnoses Not on filedocumented in this encounter Care Teams Welcome Wagon Host/Hostess Relationship Specialty Start Date End Date Geneva Estrada CHILD NUTRITION DIRECTOR [address] [place] [address] PCP - General Family Medicine 10/01/11 04/15/22 Elizabet Dodd DO [address] [place] [address] PCP - General Family Medicine 04/16/22 Lolis Mejía RD [address] [place] [address] Nutrition 02/07/25 documented as of this encounter
--- OUTSIDE RECORDS SUMMARY | 2025-02-15 18:31 | XMS_ITS | Encounter Summary ---
Author Organization [facility] Address [address] [place] [address] Care Team Providers Care Exercise Equipment Repair Technician Name Role Phone Elizabet Dodd DO Primary Care Provider [phone] Lolis Mejía RD Unavailable Unavailable Source Comments In the event this information is protected by the Federal Confidentiality of Alcohol and Drug AbusePatient Records regulations: The Federal rules restrict any use of the information to criminally investigate or prosecute any alcohol or drug abuse patient.[facility] Encounter Details Date Type Department Care Team (Late st Contact Info) Description 06/04/2022 Patient Msg General Surgery [address] [place] [address] Flory Sosa LPN [address] [place] [address] orders mailed Social History Tobacco Use Types Packs/Day Years Used Date Smoking Tobacco: Former Cigarettes 0.5 5 0 12/27/2008 - 12/27/2013 Smokeless Tobacco: Never Alcohol Use Standard Drinks/Week Comments Not Currently 0 (1 standard drink = 0.6 oz pur e alcohol) None since 2012 PHQ-2 Answer Date Recorded PHQ-2 score 0 06/02/2022 Area Deprivation Index Answer Date Wesley rded National Score (1-100), lower number is lower ri sk 63 12/05/2021 State Score (1-10), lower number is lower risk N ot on file 12/05/2021 Data from: https://www.neighborhoodatlas.medicine.[facility]/. Last address used for calculation [address] 12/05/2021 Comments No Sex and Gender [...] 02/16/2025 1:45 PM EDT [facility] REJ [address] [place] [address] Amina Light MD [address] [place] [address] follow-up weight management 03/06/2025 3:00 PM EDT [facility] BMI PSYL [address] [place] [address] Dinah Perez, PhD [address] [place] [address] Exploring your relationship with food 03/13/2025 3:00 PM EDT [facility] BMI PSYL [address] [place] [address] Dinah Perez, PhD [address] [place] [address] Emotional eating 03/20/2025 3:00 PM EDT [facility] BMI [address] [place] [address] Lolis Mejía RD [address] [facility] [place] [address] Protein and Fluids documented as of this encounter Visit Diagnoses Not on filedocumented in this encounter Care Teams Exercise Equipment Repair Technician Relationship Specialty Start Date End Date Elizabet Dodd DO [address] [place] [address] PCP - General Family Medicine 04/16/22 Lolis Mejía RD [address] [place] [address] Nutrition 02/07/25 documented as of this encounter
--- OUTSIDE RECORDS SUMMARY | 2025-02-15 18:31 | XMS_ITS | Encounter Summary ---
Author Organization [facility] Address [address] [place] [address] Care Team Providers Care Computer Game Tester Name Role Phone LucasGeneva whitaker Viviane ALANIZ Primary Care Provider [phone] Elizabet Dodd DO Primary Care Provider [phone] Lolis Mejía RD Unavailable Unavailable Source Comments In the event this information is protected by the Federal Confidentiality of Alcohol and Drug AbusePatient Records regulations: The Federal rules restrict any use of the information to criminally investigate or prosecute any alcohol or drug abuse patient.[facility] Encounter Details Date Type Department Care Team (Late st Contact Info) Description 12/05/2021 Patient Msg Pre Anesthesia [address] [place], [place] [id number] Melissa Olivas PA-C [address] [place] [address] Pre-anesthesia Instructions Social History Tobacco Use Types Packs/Day Years [...] N ot on file 12/05/2021 Data from: https://www.neighborhoodatlas.medicine.[facility]/. Last address used for calculation [address] 12/05/2021 Comments No Sex and Gender [...] suspected to have Coronavirus/COVID-19? No / Unsure 12/05/2021 1:14 PM EDT documented as of this encounter Functional [...] Entry Date Author No 10/09/2015 10:58 AM EDT Ken Boswell RN documented in this encounter Plan of Treatment Upcoming Encounters Date Type Department Care Team (Latest Contact Info) Description 02/16/2025 1:45 PM EDT [facility] Health BMI FHC REJ [address] [place] [address] Amina Light MD [address] [place] [address] follow-up weight management 03/06/2025 3:00 PM EDT [facility] General Surgery BMI PSYL [address] [place] [address] Dinah Perez, PhD [address] [place] [address] Exploring your relationship with food 03/13/2025 3:00 PM EDT [facility] Surgery BMI PSYL [address] [place] [address] Dinah Perez, PhD [address] [place] [address] Emotional eating 03/20/2025 3:00 PM EDT [facility] BMI [address] [place] [address] Lolis Mejía RD [address] [place] [address] Protein and Fluids documented as of this encounter Visit Diagnoses Not on filedocumented in this encounter Care Teams Computer Game Tester Relationship Specialty Start Date End Date Geneva Estrada, SPACE CONTROL AGENT [facility] [place] [address] PCP - General Family Medicine 10/01/11 04/15/22 Elizabet Dodd DO [address] [place] [address] PCP - General Family Medicine 04/16/22 Lolis Mejía RD [address] [place] [address] Nutrition 02/07/25 documented as of this encounter
--- OUTSIDE RECORDS SUMMARY | 2025-02-15 18:31 | XMS_ITS | Encounter Summary ---
Author Organization [facility] Address [address] [place] [address] Care Team Providers Care Retail Loss Prevention Investigator Name Role Phone Elizabet Dodd DO Primary Care Provider [phone] Lolis Mejía RD Unavailable Unavailable Source Comments In the event this information is protected by the Federal Confidentiality of Alcohol and Drug AbusePatient Records regulations: The Federal rules restrict any use of the information to criminally investigate or prosecute any alcohol or drug abuse patient.[facility] Encounter Details Date Type Department Care Team (Late st Contact Info) Description 04/27/2023 Patient Msg General Surgery BMI [address] [place] [address] Provider, Cccholo Tomorrow's visit- needs to be rescheduled Social History Tobacco Use Types Packs/Day Years Used Date Smoking Tobacco: Former Cigarettes 0.5 5 0 12/27/2008 - 12/27/2013 Smokeless Tobacco: Never Alcohol Use Standard Drinks/Week Comments Not Currently 0 (1 standard drink = 0.6 oz pur e alcohol) None since 2012 PHQ-2 Answer Date Recorded PHQ-2 score 1 04/23/2023 Area Deprivation Index Answer Date Wesley rded National Score (1-100), lower number is lower ri 64 01/15/2023 State Score (1-10), lower number is lower risk 4 01/15/2023 Data from: https://www.neighborhoodatlas.medicine.[facility]/. Last address used for calculation [address] 01/15/2023 Comments No Sex and Gender [...] hearing? Answer Date of Assessment Author No 04/01/2023 3:56 PM EDT Susi Aquino RN * Are you blind or do you have serious difficulty seeing, even when wearing glasses? Answer Date of Assessment Author No 04/01/2023 3:56 PM EDT Susi Ruffin RN * Do you have serious difficulty walking or climbing stairs? Answer Date of Assessment Author No 04/01/2023 3:56 PM EDT Susi Ruffin RN * Do you have difficulty dressing or bathing? Answer Date of Assessment Author No 04/01/2023 3:56 PM EDT Susi Ruffin RN * Because of a physical, mental, or emotional condition, do you have difficulty doing errands alone such as visiting a doctor's office or shopping? Answer Date of Assessment Author No 04/01/2023 3:56 PM EDT Susi Ruffin RN documented as of this encounter Mental Status * Because of a physical, mental, or emotional condition, do you have serious difficulty concentrating, remembering, or making decisions? Answer Entry Date Author No 04/01/2023 3:56 PM EDT Susi Ruffin RN documented in this encounter Plan of Treatment Upcoming Encounters Date Type Department Care Team (Latest Contact Info) Description 02/16/2025 1:45 PM EDT [facility] BMI C REJ [address] [place] [address] Amina Light MD [address] [place] [address] follow-up weight management 03/06/2025 3:00 PM EDT [facility] BMI PSYL [address] [place] [address] Dinah Perez, PhD [address] [place] [address] Exploring your relationship with food 03/13/2025 3:00 PM EDT [facility] BMI PSYL [address] [place] [address] Dinah Perez, PhD [address] [place] [address] Emotional eating 03/20/2025 3:00 PM EDT [facility] BMI [address] [place] [address] Lolis Mejía RD [address] [place] [address] Protein and Fluids documented as of this encounter Visit Diagnoses Not on filedocumented in this encounter Care Teams Retail Loss Prevention Investigator Relationship Specialty Start Date End Date Elizabet Dodd DO [address] [place] [address] PCP - General Family Medicine 04/16/22 Lolis Mejía RD [address] [place] [address] Nutrition 02/07/25 documented as of this encounter
--- OUTSIDE RECORDS SUMMARY | 2025-02-15 18:31 | XMS_ITS | Encounter Summary ---
Author Organization [facility] Address [address] [place] [address] Care Team Providers Care Electronic Transaction Implementer Name Role Phone Elizabet Dodd DO Primary Care Provider [phone] Lolis Mejía RD Unavailable Unavailable Source Comments In the event this information is protected by the Federal Confidentiality of Alcohol and Drug AbusePatient Records regulations: The Federal rules restrict any use of the information to criminally investigate or prosecute any alcohol or drug abuse patient.[facility] Encounter Details Date Type Department Care Team (Late st Contact Info) Description 02/08/2025 Patient Msg Pre Anesthesia [address] [place] [address] Provider, [facility]cf PRE OP APPOINTMENT NEEDED Social History Tobacco Use Types Packs/Day Years Used Date Smoking Tobacco: Former Cigarettes 0.5 5 0 12/27/2008 - 12/27/2013 Smokeless Tobacco: Never Alcohol Use Standard Drinks/Week Comments Not Currently 0 (1 standard drink = 0.6 oz pur e alcohol) None since 2012 [facility] Utilities Answer Date Recorded In the past 12 months has [employer], gas, oil, or water company threatened to [...] place to sleep or slept in a alf (including now)? No 08/05/2023 Area Deprivation Index Answer Date Wesley rded National Score (1-100), lower number is lower ri sk 64 01/15/2023 State Score (1-10), lower number is lower risk 4 01/15/2023 Data from: https://www.neighborhoodatlas.medicine.[facility].edu/. Last address used for calculation [address] 01/15/2023 Comments No Sex and Gender Information [...] Contact Info) Description 02/16/2025 1:45 PM EDT [facility] BMI FHC REJ [address] [place] [address] Amina Light MD [address] [place] [address] follow-up weight management 03/06/2025 3:00 PM EDT [facility] General Surgery BMI PSYL [address] [place] [address] Dinah Perez, PhD [address] [place] [address] Exploring your relationship with food 03/13/2025 3:00 PM EDT [facility] General Surgery BMI PSYL [address] [place] [address] Dinah Perez, PhD [address] [place] [address] Emotional eating 03/20/2025 3:00 PM EDT [facility] General Surgery BMI [address] [place] [address] Lolis Mejía RD [address] [place] [address] Protein and Fluids documented as of this encounter Visit Diagnoses Not on filedocumented in this encounter Care Teams Electronic Transaction Implementer Relationship Specialty Start Date End Date Elizabet Dodd DO [address] [place] [address] PCP - General Family Medicine 04/16/22 Lolis Mejía RD [address] [place] [address] Nutrition 02/07/25 documented as of this encounter
--- OUTSIDE RECORDS SUMMARY | 2025-02-15 18:31 | XMS_ITS | Encounter Summary ---
Author Organization [facility] Address [address] [place] [address] Care Team Providers Care Wash Oil Pump Operator Name Role Phone Elizabet Dodd DO Primary Care Provider [phone] Lolis Mejía RD Unavailable Unavailable Source Comments In the event this information is protected by the Federal Confidentiality of Alcohol and Drug AbusePatient Records regulations: The Federal rules restrict any use of the information to criminally investigate or prosecute any alcohol or drug abuse patient.[facility] Encounter Details Date Type Department Care Team (Late st Contact Info) Description 01/09/2025 Patient Msg General Surgery BMI PSYL [address] [place], [place] [id number] Dinah Perez, PhD [address] [place] [id number] Mindful eating exercise in [employer] on Thursday Social History Tobacco Use Types Packs/Day Years Used Date Smoking Tobacco: Former Cigarettes 0.5 5 0 12/27/2008 - 12/27/2013 Smokeless Tobacco: Never Alcohol Use Standard Drinks/Week Comments Not Currently 0 (1 standard drink = 0.6 oz pur e alcohol) None since 2012 [facility] Utilities Answer Date Recorded In the past [...] PHQ-2 Answer Date Recorded PHQ-2 score 3 01/02/2025 Hunger Vital Sign Answer Date Recorded Within [...] is lower risk 4 01/15/2023 Data from: https://www.neighborhoodatlas.medicine.[facility].edu/. Last address used for calculation [address] [...] Contact Info) Description 02/16/2025 1:45 PM EDT [facility] BMI FHC REJ [address] [place] [address] Amina Light MD [address] [place] [address] follow-up weight management 03/06/2025 3:00 PM EDT [facility] General Surgery BMI PSYL [address] [place] [address] Dinah Perez, PhD [address] [place] [address] Exploring your relationship with food 03/13/2025 3:00 PM EDT [facility] General Surgery BMI PSYL [address] [place] [address] Dinah Perez, PhD [address] [place] [address] Emotional eating 03/20/2025 3:00 PM EDT [facility] Surgery BMI [address] [place] [address] Lolis Mejía, BRENDON [address] [place] [address] Protein and Fluids documented as of this encounter Visit Diagnoses Not on filedocumented in this encounter Care Teams Wash Oil Pump Operator Relationship Specialty Start Date End Date Elizabet Dodd DO [address] [place] [address] PCP - General Family Medicine 04/16/22 Lolis Mejía, BRENDON [address] [place] [address] Nutrition 02/07/25 documented as of this encounter
--- OUTSIDE RECORDS SUMMARY | 2025-02-15 18:31 | XMS_ITS | Encounter Summary ---
Author Organization [facility] Address [address] [place] [address] Care Team Providers Care Career Center Advisor Name Role Phone LucasGeneva whitaker Viviane ALANIZ Primary Care Provider [phone] Elizabet Dodd DO Primary Care Provider [phone] Lolis Mejía RD Unavailable Unavailable Source Comments In the event this information is protected by the Federal Confidentiality of Alcohol and Drug AbusePatient Records regulations: The Federal rules restrict any use of the information to criminally investigate or prosecute any alcohol or drug abuse patient.[facility] Encounter Details Date Type Department Care Team (Late st Contact Info) Description 09/20/2021 Patient Msg General Surgery [address] [place] [address] Provider, Ccf Upcoming Appointment Social History Tobacco Use Types Packs/Day Years Used Date Smoking Tobacco: Former Cigarettes 0.5 5 0 12/27/2008 - 12/27/2013 Smokeless Tobacco: Never Alcohol Use Standard Drinks/Week Comments Yes 0 (1 standard drink = 0.6 oz pure alcohol) once per month: None since 2012 PHQ-2 Answer Date Recorded PHQ-2 score 0 08/19/2021 Area Deprivation Index Answer Date Wesley rded National Score (1-100), lower number is lower ri sk Not on file 2020 State Score (1-10), lower number is lower risk N ot on file 2020 Data from: https://www.neighborhoodatlas.medicine.[facility]/. Last address used for calculation Not on [...] PM EDT [facility] BMI C REJ [address] [place] [address] Amina Light MD [address] [place] [address] follow-up weight management 03/06/2025 3:00 PM EDT [facility] BMI PSYL [address] [place] [address] Dinah Perez, PhD [address] [place] [address] Exploring your relationship with food 03/13/2025 3:00 PM EDT [facility] BMI PSYL [address] [place] [address] Dinah Perez, PhD [address] [place] [address] Emotional eating 03/20/2025 3:00 PM EDT [facility] BMI [address] [place] [address] Lolis Mejía RD [address] [place] [address] Protein and Fluids documented as of this encounter Visit Diagnoses Not on filedocumented in this encounter Care Teams Career Center Advisor Relationship Specialty Start Date End Date Geneva Estrada, ADVISORY SOFTWARE ENGINEER [address] [place] [address] PCP - General Family Medicine 10/01/11 04/15/22 Elizabet Dodd DO [address] [place] [address] PCP - General Family Medicine 04/16/22 Lolis Mejía RD [address] [place] [address] Nutrition 02/07/25 documented as of this encounter
--- OUTSIDE RECORDS SUMMARY | 2025-02-15 18:31 | XMS_ITS | Encounter Summary ---
Author Organization [facility] Address [address] [place] [address] Care Team Providers Care Continuous Miner Operator Helper Name Role Phone Elizabet Dodd DO Primary Care Provider [phone] Lolis Mejía RD Unavailable Unavailable Source Comments In the event this information is protected by the Federal Confidentiality of Alcohol and Drug AbusePatient Records regulations: The Federal rules restrict any use of the information to criminally investigate or prosecute any alcohol or drug abuse patient.[facility] Encounter Details Date Type Department Care Team (Late st Contact Info) Description 02/09/2025 Patient Msg Pre Anesthesia [address] [place] [address] Provider, [facility] PRE OP APPOINTMENT NEEDED Social History Tobacco Use Types Packs/Day Years Used Date Smoking Tobacco: Former Cigarettes 0.5 5 0 12/27/2008 - 12/27/2013 Smokeless Tobacco: Never Alcohol Use Standard Drinks/Week Comments Not Currently 0 (1 standard drink = 0.6 oz pur e alcohol) None since 2012 [facility] Utilities Answer Date Recorded In the past 12 months has [employer], gas, oil, or water company threatened to [...] is lower risk 4 01/15/2023 Data from: https://www.neighborhoodatlas.medicine.[facility].edu/. Last address used for calculation [address] 01/15/2023 Comments No Sex and Gender Information [...] Contact Info) Description 02/16/2025 1:45 PM EDT [facility] BMI FHC REJ [address] [place] [address] Amina Light MD [address] [place] [address] follow-up weight management 03/06/2025 3:00 PM EDT [facility] General Surgery BMI PSYL [address] [place] [address] Dinah Perez, PhD [address] [place] [address] Exploring your relationship with food 03/13/2025 3:00 PM EDT [facility] General Surgery BMI PSYL [address] [place] [address] Dinah Perez, PhD [address] [place] [address] Emotional eating 03/20/2025 3:00 PM EDT [facility] General Surgery BMI [address] [place] [address] Lolis Mejía RD [address] [place] [address] Protein and Fluids documented as of this encounter Visit Diagnoses Not on filedocumented in this encounter Care Teams Continuous Miner Operator Helper Relationship Specialty Start Date End Date Elizabet Dodd DO [address] [place] [address] PCP - General Family Medicine 04/16/22 Lolis Mejía RD [address] [place] [address] Nutrition 02/07/25 documented as of this encounter
--- OUTSIDE RECORDS SUMMARY | 2025-02-15 18:31 | XMS_ITS | Encounter Summary ---
Author Organization [facility] Address [address] [place] [address] Care Team Providers Care Inventory Control/Shipping Receiving Name Role Phone Elizabet Dodd DO Primary Care Provider [phone] Lolis Mejía RD Unavailable Unavailable Source Comments In the event this information is protected by the Federal Confidentiality of Alcohol and Drug AbusePatient Records regulations: The Federal rules restrict any use of the information to criminally investigate or prosecute any alcohol or drug abuse patient.[facility] Encounter Details Date Type Department Care Team (Late st Contact Info) Description 06/09/2022 Patient Msg General Surgery [address] [place] [address] Provider, Ccf Nutrition Summary Social [...] N ot on file 12/05/2021 Data from: https://www.neighborhoodatlas.medicine.[facility]/. Last address used for calculation [address] 12/05/2021 Comments No Sex and Gender [...] 1:45 PM EDT [facility] REJ [address] [place], [place] [id number] Amina Light MD [address] [place] [address] follow-up weight management 03/06/2025 3:00 PM EDT [facility] BMI PSYL [address] [place] [address] Dinah Perez, PhD [address] [place] [address] Exploring your relationship with food 03/13/2025 3:00 PM EDT [facility] BMI PSYL [address] [place] [address] Dinah Perez, PhD [address] [place] [address] Emotional eating 03/20/2025 3:00 PM EDT [facility] BMI [address] [place] [address] Lolis Mejía RD [address] [place] [address] Protein and Fluids documented as of this encounter Visit Diagnoses Not on filedocumented in this encounter Care Teams Inventory Control/Shipping Receiving Relationship Specialty Start Date End Date Elizabet Dodd DO [address] [place] [address] PCP - General Family Medicine 04/16/22 Lolis Mejía RD [address] [place] [address] Nutrition 02/07/25 documented as of this encounter
--- OUTSIDE RECORDS SUMMARY | 2025-02-15 18:31 | XMS_ITS | Encounter Summary ---
Author Organization [facility] Address [address] [place] [address] Care Team Providers Care Molded Rubber Goods Cutter Name Role Phone WestElizabet gandara DO Primary Care Provider [phone] Lolis Mejía RD Unavailable Unavailable Source Comments In the event this information is protected by the Federal Confidentiality of Alcohol and Drug AbusePatient Records regulations: The Federal rules restrict any use of the information to criminally investigate or prosecute any alcohol or drug abuse patient.[facility] Encounter Details Date Type Department Care Team (Late st Contact Info) Description 01/10/2025 Get Medical Advice General Surgery [address] [place] [address] Amina Light MD [address] [place] [address] Mouniesha question Social History Tobacco Use Types Packs/Day Years Used Date Smoking Tobacco: Former Cigarettes 0.5 5 0 12/27/2008 - 12/27/2013 Smokeless Tobacco: Never Alcohol Use Standard Drinks/Week Comments Not Currently 0 (1 standard drink = 0.6 oz pur e alcohol) None since 2012 [facility] Utilities Answer Date Recorded In the [...] place to sleep or slept in a long-term (including now)? No 08/05/2023 Area Deprivation Index Answer Date Wesley rded National Score (1-100), lower number is lower ri sk 64 01/15/2023 State Score (1-10), lower number is lower risk 4 01/15/2023 Data from: https://www.neighborhoodatlas.medicine.[facility].edu/. Last address used for calculation [address] [...] Contact Info) Description 02/16/2025 1:45 PM EDT [facility] BMI FHC REJ [address] [place] [address] Amina Light MD [address] [place] [address] follow-up weight management 03/06/2025 3:00 PM EDT [facility] General Surgery BMI PSYL [address] [place] [address] Dinah Perez, PhD [address] [place] [address] Exploring your relationship with food 03/13/2025 3:00 PM EDT [facility] General Surgery BMI PSYL [address] [place] [address] Dinah Perez, PhD [address] [place] [address] Emotional eating 03/20/2025 3:00 PM EDT [facility] Surgery BMI [address] [place], [place] [id number] Lolis Mejía, BR[address] [facility] [place] [address] Protein and Fluids documented as of this encounter Visit Diagnoses Not on filedocumented in this encounter Care Teams Molded Rubber Goods Cutter Relationship Specialty Start Date End Date Elizabet Dodd DO [address] [place] [address] PCP - General Family Medicine 04/16/22 Lolis Mejía, BRENDON [address] [place] [address] Nutrition 02/07/25 documented as of this encounter
--- OUTSIDE RECORDS SUMMARY | 2025-02-15 18:31 | XMS_ITS | Encounter Summary ---
Author Organization [facility] Address [address] [place] [address] Care Team Providers Care Custody Officer Name Role Phone Elizabet Dodd DO Primary Care Provider Lolis Mejía RD Unavailable Unavailable Source Comments In the event this information is protected by the Federal Confidentiality of Alcohol and Drug AbusePatient Records regulations: The Federal rules restrict any use of the information to criminally investigate or prosecute any alcohol or drug abuse patient.[facility] Encounter Details Date Type Department Care Team (Late st Contact Info) Description 04/30/2022 Patient Msg BMI [facility] REJ [address] [place], [place] [id number] Pao Hodgson RN [address] [place], [place] [id number] Lab Results Social History Tobacco Use Types Packs/Day Years [...] N ot on file 12/05/2021 Data from: https://www.neighborhoodatlas.medicine.[facility]/. Last address used for calculation [address] 12/05/2021 Comments No Sex and Gender [...] 02/16/2025 1:45 PM EDT [facility] BMI [facility] REJ [address] [place] [address] Amina Light MD [address] [place] [address] follow-up weight management 03/06/2025 3:00 PM EDT [facility] BMI PSYL [address] [place] [address] Dinah Perez, PhD [address] [place] [address] Exploring your relationship with food 03/13/2025 3:00 PM EDT [facility] BMI PSYL [address] [place] [address] Dinah Perez, PhD [address] [place] [address] Emotional eating 03/20/2025 3:00 PM EDT [facility] BMI [address] [place] [address] Lolis Mejía RD [address] [place] [address] Protein and Fluids documented as of this encounter Visit Diagnoses Not on filedocumented in this encounter Care Teams Custody Officer Relationship Specialty Start Date End Date Elizabet Dodd DO [address] [place] [address] PCP - General Family Medicine 04/16/22 Lolis Mejía RD [address] [place] [address] Nutrition 02/07/25 documented as of this encounter
--- OUTSIDE RECORDS SUMMARY | 2025-02-15 18:31 | XMS_ITS | Encounter Summary ---
Author Organization [facility] Address [address] [place] [address] Care Team Providers Care Robotic Machine Operator Name Role Phone Elizabet Dodd DO Primary Care Provider [phone] Lolis Mejía RD Unavailable Unavailable Source Comments In the event this information is protected by the Federal Confidentiality of Alcohol and Drug AbusePatient Records regulations: The Federal rules restrict any use of the information to criminally investigate or prosecute any alcohol or drug abuse patient.[facility] Encounter Details Date Type Department Care Team (Late st Contact Info) Description 01/23/2025 Patient Msg General Surgery BMI [address] [place] [address] Provider, [facility] Nutrition summary Social History Tobacco Use Types Packs/Day Years Used Date Smoking Tobacco: Former Cigarettes 0.5 5 0 12/27/2008 - 12/27/2013 Smokeless Tobacco: Never Alcohol Use Standard Drinks/Week Comments Not Currently 0 (1 standard drink = 0.6 oz pur e alcohol) None since 2012 [facility] Utilities Answer Date Recorded In the past 12 months has e electric, gas, oil, or water company [...] place to sleep or slept in a prison (including now)? No 08/05/2023 Area Deprivation Index Answer Date Wesley rded National Score (1-100), lower number is lower ri sk 64 01/15/2023 State Score (1-10), lower number is lower risk 4 01/15/2023 Data from: https://www.neighborhoodatlas.medicine.[facility].edu/. Last address used for calculation [...] Description 02/16/2025 1:45 PM EDT [facility] BMI FHC REJ [address] [place] [address] Amina Light MD [address] [place] [address] follow-up weight management 03/06/2025 3:00 PM EDT [facility] General Surgery BMI PSYL [address] [place] [address] Dinah Perez, PhD [address] [place] [address] Exploring your relationship with food 03/13/2025 3:00 PM EDT [facility] General Surgery BMI PSYL [address] [place] [address] Dinah Perez, PhD [address] [place] [address] Emotional eating 03/20/2025 3:00 PM EDT [facility] General Surgery BMI [address] [place] [address] Lolis Mejía RD [address] [place] [address] Protein and Fluids documented as of this encounter Visit Diagnoses Not on filedocumented in this encounter Care Teams Robotic Machine Operator Relationship Specialty Start Date End Date Elizabet Dodd DO [address] [place] [address] PCP - General Family Medicine 04/16/22 Lolis Mejía RD [address] [place] [address] Nutrition 02/07/25 documented as of this encounter
--- OUTSIDE RECORDS SUMMARY | 2025-02-15 18:31 | XMS_ITS | Encounter Summary ---
Author Organization [facility] Address [address] [place] [address] Care Team Providers Care Registered Midwife Name Role Phone WestElizabet gandara DO Primary Care Provider [phone] Lolis Mejía RD Unavailable Unavailable Source Comments In the event this information is protected by the Federal Confidentiality of Alcohol and Drug AbusePatient Records regulations: The Federal rules restrict any use of the information to criminally investigate or prosecute any alcohol or drug abuse patient.[facility] Encounter Details Date Type Department Care Team (Late st Contact Info) Description 11/11/2024 Get Medical Advice [facility] REJ [address] [place], [place] [id number] Amina Light MD [address] [place] [address] Medication Social History Tobacco Use Types Packs/Day Years Used Date Smoking Tobacco: Former Cigarettes 0.5 5 0 12/27/2008 - 12/27/2013 Smokeless Tobacco: Never Alcohol Use Standard Drinks/Week Comments Not Currently 0 (1 standard drink = 0.6 oz pur e alcohol) None since 2012 [facility] Utilities Answer Date Recorded In the [...] place to sleep or slept in a mcfp (including now)? No 08/05/2023 Area Deprivation Index Answer Date Wesley rded National Score (1-100), lower number is lower ri sk 64 01/15/2023 State Score (1-10), lower number is lower risk 4 01/15/2023 Data from: https://www.neighborhoodatlas.medicine.[facility].edu/. Last address used for [...] Contact Info) Description 02/16/2025 1:45 PM EDT [facility] BMI FHC REJ [address] [place] [address] Amina Light MD [address] [place] [address] follow-up weight management 03/06/2025 3:00 PM EDT [facility] General Surgery BMI PSYL [address] [place] [address] Dinah Perez, PhD [address] [place] [address] Exploring your relationship with food 03/13/2025 3:00 PM EDT [facility] General Surgery BMI PSYL [address] [place] [address] Dinah Perez, PhD [address] [place] [address] Emotional eating 03/20/2025 3:00 PM EDT [facility] Surgery BMI [address] [place], [place] [address] Lolis Mejía, BRENDON [address] [facility] [place] [address] Protein and Fluids documented as of this encounter Visit Diagnoses Not on filedocumented in this encounter Care Teams Registered Midwife Relationship Specialty Start Date End Date Elizabet Dodd DO [address] [place] [address] PCP - General Family Medicine 04/16/22 Lolis Mejía, BRENDON [address] [place] [address] Nutrition 02/07/25 documented as of this encounter
--- OUTSIDE RECORDS SUMMARY | 2025-02-15 18:31 | XMS_ITS | Encounter Summary ---
Author Organization [facility] Address [address] [place] [address] Care Team Providers Care Toolroom Clerk Name Role Phone LucasGeneva whitaker Viviane ALANIZ Primary Care Provider [phone] Elizabet Dodd DO Primary Care Provider [phone] Lolis Mejía RD Unavailable Unavailable Source Comments In the event this information is protected by the Federal Confidentiality of Alcohol and Drug AbusePatient Records regulations: The Federal rules restrict any use of the information to criminally investigate or prosecute any alcohol or drug abuse patient.[facility] Encounter Details Date Type Department Care Team (Late st Contact Info) Description 11/29/2021 Patient Msg Procedures [address] [place] [address] Provider, [facility]cf EGD Instructions Social History Tobacco Use Types Packs/Day [...] N ot on file 2020 Data from: https://www.neighborhoodatlas.medicine.[facility].edu/. Last address used for calculation Not on [...] Contact Info) Description 02/16/2025 1:45 PM EDT [facility] REJ [address] [place] [address] Amina Light MD [address] [place] [address] follow-up weight management 03/06/2025 3:00 PM EDT [facility] BMI PSYL [address] [place] [address] Dinah Perez, PhD [address] [place] [address] Exploring your relationship with food 03/13/2025 3:00 PM EDT [facility] BMI PSYL [address] [place] [address] Dinah Perez, PhD [address] [place] [address] Emotional eating 03/20/2025 3:00 PM EDT [facility] BMI [address] [place] [address] Lolis Mejía RD [address] [place] [address] Protein and Fluids documented as of this encounter Visit Diagnoses Not on filedocumented in this encounter Care Teams Toolroom Clerk Relationship Specialty Start Date End Date Geneva Estrada, SEAT MENDER [address] [place] [address] PCP - General Family Medicine 10/01/11 04/15/22 Elizabet Dodd DO [address] [place] [address] PCP - General Family Medicine 04/16/22 Lolis Mejía RD [address] [place] [address] Nutrition 02/07/25 documented as of this encounter
--- OUTSIDE RECORDS SUMMARY | 2025-02-15 18:31 | XMS_ITS | Encounter Summary ---
Author Organization [facility] Address [address] [place] [address] Care Team Providers Care Textile Cutting Machine Operator Name Role Phone LucasGeneva whitaker Viviane ALANIZ Primary Care Provider [phone] Elizabet Dodd DO Primary Care Provider [phone] Lolis Mejía RD Unavailable Unavailable Source Comments In the event this information is protected by the Federal Confidentiality of Alcohol and Drug AbusePatient Records regulations: The Federal rules restrict any use of the information to criminally investigate or prosecute any alcohol or drug abuse patient.[facility] Encounter Details Date Type Department Care Team (Late st Contact Info) Description 12/17/2021 GI Preprocedure Call [facility] Surgery [address] [place], [place] [id number] [place] [address] [place] [address] Social History Tobacco Use Types Packs/Day Years [...] N ot on file 12/05/2021 Data from: https://www.neighborhoodatlas.medicine.[facility]/. Last address used for calculation [address] 12/05/2021 Comments No Sex and Gender [...] Contact Info) Description 02/16/2025 1:45 PM EDT [facility] BMI FHC REJ [address] [place] [address] Amina Light MD [address] [place] [address] follow-up weight management 03/06/2025 3:00 PM EDT [facility] General Surgery BMI PSYL [address] [place] [address] Dinah Perez, PhD [address] [place] [address] Exploring your relationship with food 03/13/2025 3:00 PM EDT [facility] Surgery BMI PSYL [address] [place] [address] Dinah Perez, PhD [address] [place] [address] Emotional eating 03/20/2025 3:00 PM EDT [facility] BMI [address] [place] [address] Lolis Mejía RD [address] [place] [address] Protein and Fluids documented as of this encounter Visit Diagnoses Not on filedocumented in this encounter Care Teams Textile Cutting Machine Operator Relationship Specialty Start Date End Date Geneva Estrada, INFORMATION SECURITY [facility] [place] [address] PCP - General Family Medicine 10/01/11 04/15/22 Elizabet Dodd DO [address] [place] [address] PCP - General Family Medicine 04/16/22 Lolis Mejía RD [address] [place] [address] Nutrition 02/07/25 documented as of this encounter
--- OUTSIDE RECORDS SUMMARY | 2025-02-15 18:31 | XMS_ITS | Encounter Summary ---
Author Organization [facility] Address [address] [place] [address] Care Team Providers Care Tax Services Specialist Name Role Phone Elizabet Dodd DO Primary Care Provider [phone] Lolis Mejía RD Unavailable Unavailable Source Comments In the event this information is protected by the Federal Confidentiality of Alcohol and Drug AbusePatient Records regulations: The Federal rules restrict any use of the information to criminally investigate or prosecute any alcohol or drug abuse patient.[facility] Encounter Details Date Type Department Care Team (Late st Contact Info) Description 07/09/2022 Patient Msg General Surgery [address] [place] [address] Provider, Cccholo Nutrion Summary Social History Tobacco Use Types Packs/Day [...] N ot on file 12/05/2021 Data from: https://www.neighborhoodatlas.medicine.[facility]/. Last address used for calculation [address] 12/05/2021 Comments No Sex and Gender [...] 02/16/2025 1:45 PM EDT [facility] BMI [facility] REJ [address] [place], [place] [address] Amina Light MD [address] [place] [address] follow-up weight management 03/06/2025 3:00 PM EDT [facility] BMI PSYL [address] [place] [address] Dinah Perez, PhD [address] [place] [address] Exploring your relationship with food 03/13/2025 3:00 PM EDT [facility] BMI PSYL [address] [place] [address] Dinah Perez, PhD [address] [place] [address] Emotional eating 03/20/2025 3:00 PM EDT [facility] BMI [address] [place] [address] Lolis Mejía RD [address] [place] [address] Protein and Fluids documented as of this encounter Visit Diagnoses Not on filedocumented in this encounter Care Teams Tax Services Specialist Relationship Specialty Start Date End Date Elizabet Dodd DO [address] [place] [address] PCP - General Family Medicine 04/16/22 Lolis Mejía RD [address] [place] [address] Nutrition 02/07/25 documented as of this encounter
--- OUTSIDE RECORDS SUMMARY | 2025-02-15 18:31 | XMS_ITS | Encounter Summary ---
Author Organization [facility] Address [address] [place] [address] Care Team Providers Care Manager Universal Name Role Phone Elizabet Dodd DO Primary Care Provider [phone] Lolis Mejía RD Unavailable Unavailable Source Comments In the event this information is protected by the Federal Confidentiality of Alcohol and Drug AbusePatient Records regulations: The Federal rules restrict any use of the information to criminally investigate or prosecute any alcohol or drug abuse patient.[facility] Encounter Details Date Type Department Care Team (Late st Contact Info) Description 11/01/2024 Patient Msg Pre Anesthesia [address] [place] [address] Provider, [facility] Social History Tobacco Use Types Packs/Day Years Used Date Smoking Tobacco: Former Cigarettes 0.5 5 0 12/27/2008 - 12/27/2013 Smokeless Tobacco: Never Alcohol Use Standard Drinks/Week Comments Not Currently 0 (1 standard drink = 0.6 oz pur e alcohol) None since 2012 [facility] Utilities Answer Date Recorded In the past 12 months has e sfilatino, gas, oil, or water company threatened to [...] place to sleep or slept in a intermediate (including now)? No 08/05/2023 Area Deprivation Index Answer Date Wesley rded National Score (1-100), lower number is lower ri sk 64 01/15/2023 State Score (1-10), lower number is lower risk 4 01/15/2023 Data from: https://www.neighborhoodatlas.medicine.[facility].edu/. Last address used for calculation [...] Contact Info) Description 02/16/2025 1:45 PM EDT [facility] BMI FHC REJ [address] [place] [address] Amina Light MD [address] [place] [address] follow-up weight management 03/06/2025 3:00 PM EDT [facility] General Surgery BMI PSYL [address] [place] [address] Dinah Perez, PhD [address] [place] [address] Exploring your relationship with food 03/13/2025 3:00 PM EDT [facility] General Surgery BMI PSYL [address] [place] [address] Dinah Perez, PhD [address] [place] [address] Emotional eating 03/20/2025 3:00 PM EDT [facility] General Surgery BMI [address] [place] [address] Lolis Mejía RD [address] [place] [address] Protein and Fluids documented as of this encounter Visit Diagnoses Not on filedocumented in this encounter Care Teams Manager Universal Relationship Specialty Start Date End Date Elizabet Dodd DO [address] [place] [address] PCP - General Family Medicine 04/16/22 Lolis Mejía RD [address] [place] [address] Nutrition 02/07/25 documented as of this encounter
--- OUTSIDE RECORDS SUMMARY | 2025-02-15 18:31 | XMS_ITS | Encounter Summary ---
Author Organization [facility] Address [address] [place] [address] Care Team Providers Care Hydroelectric Plant Maintainer Name Role Phone LucasGeneva whitaker Viviane ALANIZ Primary Care Provider [phone] Elizabet Dodd DO Primary Care Provider [phone] Lolis Mejía RD Unavailable Unavailable Source Comments In the event this information is protected by the Federal Confidentiality of Alcohol and Drug AbusePatient Records regulations: The Federal rules restrict any use of the information to criminally investigate or prosecute any alcohol or drug abuse patient.[facility] Encounter Details Date Type Department Care Team (Late st Contact Info) Description 03/14/2022 Patient Msg General Surgery [address] [place] [address] Provider, [facility]cf upper GI Social History Tobacco Use Types Packs/Day Years [...] N ot on file 12/05/2021 Data from: https://www.neighborhoodatlas.medicine.[facility]/. Last address used for calculation [address] 12/05/2021 Comments No Sex and [...] suspected to have Coronavirus/COVID-19? No / Unsure 02/12/2022 7:03 AM EDT documented as of this encounter [...] PM EDT [facility] BMI FHC REJ [address] [place] [address] Amina Light MD [address] [place] [address] follow-up weight management 03/06/2025 3:00 PM EDT [facility] General Surgery BMI PSYL [address] [place] [address] Dinah Perez, PhD [address] [place] [address] Exploring your relationship with food 03/13/2025 3:00 PM EDT [facility] Surgery BMI PSYL [address] [place] [address] Dinah Perez, PhD [address] [place] [address] Emotional eating 03/20/2025 3:00 PM EDT [facility] Surgery BMI [address] [place] [address] Lolis Mejía RD [address] [place] [address] Protein and Fluids documented as of this encounter Visit Diagnoses Not on filedocumented in this encounter Care Teams Hydroelectric Plant Maintainer Relationship Specialty Start Date End Date Geneva Estrada, HOSPITAL LIBRARIAN [address] [place] [address] PCP - General Family Medicine 10/01/11 04/15/22 Elizabet Dodd DO [address] [place] [address] PCP - General Family Medicine 04/16/22 Lolis Mejía RD [address] [place] [address] Nutrition 02/07/25 documented as of this encounter
--- OUTSIDE RECORDS SUMMARY | 2025-02-15 18:31 | XMS_ITS | Encounter Summary ---
Author Organization [facility] Address [id number] [address] [place] [address] Care Team Providers Care Veterinary Toxicologist Name Role Phone Services, [facility] Primary Care Provider Reason for Visit * Reason Onset Date Comments Med Refill 08/31/2017 Encounter Details Date Type Department Care Team (Late st Contact Info) Description 08/31/2017 Refill [facility] - Surgery Pre and Post OP [address] [place] [address] Ursula Gibson RN Social History Tobacco Use Types Packs/Day Years Used Date Smoking Tobacco: Former Cigarettes 0.5 9 0 06/29/2004 - 06/29/2013 Smokeless Tobacco: Never Alcohol Use Standard Drinks/Week Comments No 0 (1 standard drink = 0.6 oz pur e alcohol) Comments No Sex and Gender Information Value Date Recorded Sex Assigned at Not on file Legal Sex Female 11:28 AM EDT Gender Identity Not on file Sexual Orientation Not on file documented as of this encounter Functional Status documented as of this encounter Plan of Treatment Not on file documented as of this encounter Goals Goal Patient Goal Type Associated Problems Recent Progress Patient-Stated? Author Home General Yes Kirsty Tubbs, SUSAN Note: Evaluation of progress towards goal: Patient's goal is to discharge to home. documented as of this encounter Visit Diagnoses Not on filedocumented in this encounter Care Teams Veterinary Toxicologist Relationship Specialty Start Date End Date Services, [facility] [address] [place], [place] PCP - General Family Medicine 04/06/24 documented as of this encounter
--- OUTSIDE RECORDS SUMMARY | 2025-02-15 18:31 | XMS_ITS | Encounter Summary ---
Author Organization [facility] Address [address] [place] [address] Care Team Providers Care Bunch Breaker Name Role Phone Elizabet Dodd DO Primary Care Provider [phone] Lolis Mejía RD Unavailable Unavailable Source Comments In the event this information is protected by the Federal Confidentiality of Alcohol and Drug AbusePatient Records regulations: The Federal rules restrict any use of the information to criminally investigate or prosecute any alcohol or drug abuse patient.[facility] Encounter Details Date Type Department Care Team (Late st Contact Info) Description 03/05/2023 Patient Msg General Surgery [address] [place] [address] Provider, Ccf Nutrition Summary Social [...] is lower risk 4 01/15/2023 Data from: https://www.neighborhoodatlas.medicine.[facility]/. Last address used for calculation [...] 1:45 PM EDT [facility] REJ [address] [place], [place] [id number] Amina Light MD [address] [place] [address] follow-up weight management 03/06/2025 3:00 PM EDT [facility] BMI PSYL [address] [place] [address] Dinah Perez, PhD [address] [place] [address] Exploring your relationship with food 03/13/2025 3:00 PM EDT [facility] BMI PSYL [address] [place] [address] Dinah Perez, PhD [address] [place] [address] Emotional eating 03/20/2025 3:00 PM EDT [facility] BMI [address] [place] [address] Lolis Mejía RD [address] [place] [address] Protein and Fluids documented as of this encounter Visit Diagnoses Not on filedocumented in this encounter Care Teams Bunch Breaker Relationship Specialty Start Date End Date Elizabet Dodd DO [address] [place] [address] PCP - General Family Medicine 04/16/22 Lolis Mejía RD [address] [place] [address] Nutrition 02/07/25 documented as of this encounter
--- OUTSIDE RECORDS SUMMARY | 2025-02-15 18:31 | XMS_ITS | Encounter Summary ---
Author Organization [facility] Address [address] [place] [address] Care Team Providers Care Tax Compliance Manager Name Role Phone WestElizabet gandara DO Primary Care Provider [phone] Lolis Mejía RD Unavailable Unavailable Source Comments In the event this information is protected by the Federal Confidentiality of Alcohol and Drug AbusePatient Records regulations: The Federal rules restrict any use of the information to criminally investigate or prosecute any alcohol or drug abuse patient.[facility] Encounter Details Date Type Department Care Team (Late st Contact Info) Description 11/01/2024 Get Medical Advice [facility] REJ [address] [place], [place] [id number] Amina Light MD [address] [place] [address] Medication question Social History Tobacco Use Types Packs/Day Years Used Date Smoking Tobacco: Former Cigarettes 0.5 5 0 12/27/2008 - 12/27/2013 Smokeless Tobacco: Never Alcohol Use Standard Drinks/Week Comments Not Currently 0 (1 standard drink = 0.6 oz pur e alcohol) None since 2012 [facility] Utilities Answer Date Recorded In [...] is lower risk 4 01/15/2023 Data from: https://www.neighborhoodatlas.medicine.[facility].edu/. Last address used for calculation [address] [...] Contact Info) Description 02/16/2025 1:45 PM EDT [facility] BMI FHC REJ [address] [place] [address] Amina Light MD [address] [place] [address] follow-up weight management 03/06/2025 3:00 PM EDT [facility] General Surgery BMI PSYL [address] [place] [address] Dinah Perez, PhD [address] [place] [address] Exploring your relationship with food 03/13/2025 3:00 PM EDT [facility] General Surgery BMI PSYL [address] [place] [address] Dinah Perez, PhD [address] [place] [address] Emotional eating 03/20/2025 3:00 PM EDT [facility] Surgery BMI [address] [place], [place] [id number] Lolis Mejía, BRENDON [address] [facility] [place] [address] Protein and Fluids documented as of this encounter Visit Diagnoses Not on filedocumented in this encounter Care Teams Tax Compliance Manager Relationship Specialty Start Date End Date Elizabet Dodd DO [address] [place] [address] PCP - General Family Medicine 04/16/22 Lolis Mejía, BRENDON [address] [place] [address] Nutrition 02/07/25 documented as of this encounter
--- OUTSIDE RECORDS SUMMARY | 2025-02-15 18:31 | XMS_ITS | Clinical Summary ---
Author Organization [facility] Address [address] [place] [address] Phone Care Team Providers Care Jacket Changer Name Role Phone Prince Horvath MD Primary Care Provider [phone] Social History Tobacco Use Types Packs/Day Years Used Date Smoking Tobacco: Never Assessed Comments Unknown Sex and Gender Information Value Date Recorded Sex Assigned at Not on file Legal Sex Female 6:48 PM EST Gender Identity Not on file Sexual Orientation Not on file Last Filed Vital Signs Vital Sign Reading Time Taken Comments Blood Pressure - - Pulse - - Temperature - - Respiratory Rate - - Oxygen Saturation - - Inhaled Oxygen Concentration - - Weight 159 kg (350 lb) 09/30/2021 9:03 AM EDT Height 162.6 cm (5' 4 ) 09/30/2021 9:03 AM EDT Body Mass Index 60.08 09/30/2021 9:03 AM EDT Plan of Treatment Not on file Care Teams Jacket Changer Relationship Specialty Start Date End Date Prince Horvath MD [address], [address] [address] PCP - General 09/30/21
--- OUTSIDE RECORDS SUMMARY | 2025-02-15 18:31 | XMS_ITS | Encounter Summary ---
Author Organization [facility] Address [address] [place] [address] Care Team Providers Care Aerial Erector Name Role Phone LucasGeneva whitaker Viviane ALANIZ Primary Care Provider [phone] Elizabet Dodd DO Primary Care Provider [phone] Lolis Mejía RD Unavailable Unavailable Source Comments In the event this information is protected by the Federal Confidentiality of Alcohol and Drug AbusePatient Records regulations: The Federal rules restrict any use of the information to criminally investigate or prosecute any alcohol or drug abuse patient.[facility] Encounter Details Date Type Department Care Team (Late st Contact Info) Description 01/20/2022 Patient Msg Colorectal Surgery [address] [place] [address] Provider, Ccf Ct Scan and Upper GI Xray, Dr. Vargas Social History Tobacco Use Types Packs/Day Years [...] N ot on file 12/05/2021 Data from: https://www.neighborhoodatlas.medicine.[facility]/. Last address used for calculation [address] 12/05/2021 Comments No Sex and Gender [...] suspected to have Coronavirus/COVID-19? No / Unsure 01/21/2022 11:28 AM EDT documented as of this encounter [...] PM EDT [facility] BMI FHC REJ [address] [place] [address] Amina Light MD [address] [place] [address] follow-up weight management 03/06/2025 3:00 PM EDT [facility] General Surgery BMI PSYL [address] [place] [address] Dinah Perez, PhD [address] [place] [address] Exploring your relationship with food 03/13/2025 3:00 PM EDT [facility] General Surgery BMI PSYL [address] [place] [address] Dinah Perez, PhD [address] [place] [address] Emotional eating 03/20/2025 3:00 PM EDT [facility] Surgery BMI [address] [place] [address] Lolis Mejía RD [address] [place] [address] Protein and Fluids documented as of this encounter Visit Diagnoses Not on filedocumented in this encounter Care Teams Aerial Erector Relationship Specialty Start Date End Date Geneva Estrada, CLEAN ROOM ASSEMBLER [address] [place] [address] PCP - General Family Medicine 10/01/11 04/15/22 Elizabet Dodd DO [address] [place] [address] PCP - General Family Medicine 04/16/22 Lolis Mejía RD [address] [place] [address] Nutrition 02/07/25 documented as of this encounter
--- OUTSIDE RECORDS SUMMARY | 2025-02-15 18:31 | XMS_ITS | Encounter Summary ---
Author Organization [facility] Address [id number] [address] [place] [address] Care Team Providers Care Group Contract Analyst Name Role Phone Services, [facility] Primary Care Provider Encounter Details Date Type Department Care Team (Late st Contact Info) Description 08/17/2024 Orders Only [facility], A Department of [facility] [address] [place] [address] Yakelin Cherry RN Pelvic mass in female (Primary Dx); Pain Social History Tobacco Use Types Packs/Day Years [...] care, and heating? Not hard at all 08/13/2024 PRAPARE - Transportation Answer Date Re corded In the past 12 months, has l ack of transportation kept you from medical appointments or from getting medications? No 07/30 In the past 12 months, has l ack of transportation kept you from meetings, work, or from getting things needed for daily living? No 08/13/2024 Housing Instability Answer Date Recorde d Are you worried or concerned that in the next two months you may not have stable housing that you own, rent or stay in as a part of a household? No 08/13/2024 Childcare Answer Date Recorded Childcare Unknown 12/08/2018 Employment Answer Date Recorded Employment Unknown 12/08/2018 Hunger Screening Answer Date Recorded Within the past 12 months we worried whether our food would run out before we got money to buy more. Never True 08/13/2024 Within the past 12 months th e food we bought just didn't last and we didn't have money to get more. Never True 08/13/2024 Purpose - Life Answer Date Recorded Purpose and direction in life Unknown Comments No Sex and Gender Information Value Date Recorded Sex Assigned at Not on file Legal Sex Female 11:28 AM EDT Gender Identity Not on file Sexual Orientation Not on file documented as of this encounter Plan of Treatment Not on file documented as of this encounter Goals Goal Patient Goal Type Associated Problems Recent Progress Patient-Stated? Author Home General Yes Kirsty Tubbs, RN Note: Evaluation of progress towards goal: Patient's goal is to discharge to home. documented as of this encounter Visit Diagnoses Diagnosis Pelvic mass in female- Primary Pain Generalized pain documented in this encounter Care Teams Group Contract Analyst Relationship Specialty Start Date End Date [facility], [facility] [address] [place], [place] PCP - General Family Medicine 04/06/24 documented as of this encounter
--- OUTSIDE RECORDS SUMMARY | 2025-02-15 18:31 | XMS_ITS | Encounter Summary ---
Author Organization [facility] Address [address] [place] [address] Care Team Providers Care Metal Ceiling Builder Name Role Phone Elizabet Dodd DO Primary Care Provider Lolis Mejía RD Unavailable Unavailable Source Comments In the event this information is protected by the Federal Confidentiality of Alcohol and Drug AbusePatient Records regulations: The Federal rules restrict any use of the information to criminally investigate or prosecute any alcohol or drug abuse patient.[facility] Encounter Details Date Type Department Care Team (Late st Contact Info) Description 02/06/2025 Patient Msg General Surgery BMI [address] [place] [address] Provider, [facility] Nutrition summary Social History Tobacco Use Types Packs/Day Years Used Date Smoking Tobacco: Former Cigarettes 0.5 5 0 12/27/2008 - 12/27/2013 Smokeless Tobacco: Never Alcohol Use Standard Drinks/Week Comments Not Currently 0 (1 standard drink = 0.6 oz pur e alcohol) None since 2012 [facility] Utilities Answer Date Recorded In the [...] is lower risk 4 01/15/2023 Data from: https://www.neighborhoodatlas.medicine.[facility].edu/. Last address used for calculation [...] Contact Info) Description 02/16/2025 1:45 PM EDT [facility] BMI FHC REJ [address] [place] [address] Amina Light MD [address] [place] [address] follow-up weight management 03/06/2025 3:00 PM EDT [facility] General Surgery BMI PSYL [address] [place] [address] Dinah Perez, PhD [address] [place] [address] Exploring your relationship with food 03/13/2025 3:00 PM EDT [facility] General Surgery BMI PSYL [address] [place] [address] Dinah Perez, PhD [address] [place] [address] Emotional eating 03/20/2025 3:00 PM EDT [facility] General Surgery BMI [address] [place] [address] Lolis Mejía RD [address] [place] [address] Protein and Fluids documented as of this encounter Visit Diagnoses Not on filedocumented in this encounter Care Teams Metal Ceiling Builder Relationship Specialty Start Date End Date Elizabet Dodd DO [address] [place] [address] PCP - General Family Medicine 04/16/22 Lolis Mejía RD [address] [place] [address] Nutrition 02/07/25 documented as of this encounter
--- OUTSIDE RECORDS SUMMARY | 2025-02-15 18:32 | XMS_ITS | Encounter Summary ---
Author Organization [facility] Address [address] [place] [address] Care Team Providers Care Blow Molding Machine Operator Name Role Phone WestElizabet gandara DO Primary Care Provider Lolis Mejía RD Unavailable Unavailable Source Comments In the event this information is protected by the Federal Confidentiality of Alcohol and Drug AbusePatient Records regulations: The Federal rules restrict any use of the information to criminally investigate or prosecute any alcohol or drug abuse patient.[facility] Encounter Details Date Type Department Care Team (Late st Contact Info) Description 01/02/2025 Get Medical Advice General Surgery [address] [place] [address] Amina Light MD [address] [place] [address] Question regarding a1c results Social History Tobacco Use Types Packs/Day Years Used Date Smoking Tobacco: Former Cigarettes 0.5 5 0 12/27/2008 - 12/27/2013 Smokeless Tobacco: Never Alcohol Use Standard Drinks/Week Comments Not Currently 0 (1 standard drink = 0.6 oz pur e alcohol) None since 2012 [facility] Utilities Answer Date Recorded In the past [...] place to sleep or slept in a senior living (including now)? No 08/05/2023 Area Deprivation Index Answer Date Wesley rded National Score (1-100), lower number is lower ri sk 64 01/15/2023 State Score (1-10), lower number is lower risk 4 01/15/2023 Data from: https://www.neighborhoodatlas.medicine.[facility].edu/. Last address used for calculation [...] Contact Info) Description 02/16/2025 1:45 PM EDT [facility] BMI FHC REJ [address] [place] [address] Amina Light MD [address] [place] [address] follow-up weight management 03/06/2025 3:00 PM EDT [facility] General Surgery BMI PSYL [address] [place] [address] Dinah Perez, PhD [address] [place] [address] Exploring your relationship with food 03/13/2025 3:00 PM EDT [facility] General Surgery BMI PSYL [address] [place] [address] Dinah Perez, PhD [address] [place] [address] Emotional eating 03/20/2025 3:00 PM EDT [facility] Surgery BMI [address] [place], [place] [address] Lolis Mejía, BRENDON [address] [facility] [place] [address] Protein and Fluids documented as of this encounter Visit Diagnoses Not on filedocumented in this encounter Care Teams Blow Molding Machine Operator Relationship Specialty Start Date End Date Elizabet Dodd DO [address] [place] [address] PCP - General Family Medicine 04/16/22 Lolis Mejía, BRENDON [address] [place] [address] Nutrition 02/07/25 documented as of this encounter
--- OUTSIDE RECORDS SUMMARY | 2025-02-15 18:32 | XMS_ITS | Encounter Summary ---
Author Organization [facility] Address [address] [place] [address] Care Team Providers Care Lawn Mower Operator Name Role Phone WestElizabet gandara DO Primary Care Provider [phone] Lolis Mejía RD Unavailable Unavailable Source Comments In the event this information is protected by the Federal Confidentiality of Alcohol and Drug AbusePatient Records regulations: The Federal rules restrict any use of the information to criminally investigate or prosecute any alcohol or drug abuse patient.[facility] Encounter Details Date Type Department Care Team (Late st Contact Info) Description 04/19/2024 Get Medical Advice General Surgery [address] [place] [address] Amina Light MD [address] [place] [address] Medication Social History Tobacco Use Types Packs/Day Years Used Date Smoking Tobacco: Former Cigarettes 0.5 5 0 12/27/2008 - 12/27/2013 Smokeless Tobacco: Never Alcohol Use Standard Drinks/Week Comments Not Currently 0 (1 standard drink = 0.6 oz pur e alcohol) None since [address] [facility] Utilities Answer Date Recorded In the [...] place to sleep or slept in a nursing home (including now)? No 08/05/2023 Area Deprivation Index Answer Date Wesley rded National Score (1-100), lower number is lower ri sk 64 01/15/2023 State Score (1-10), lower number is lower risk 4 01/15/2023 Data from: https://www.neighborhoodatlas.medicine.[place].edu/. Last address used for calculation [address] [...] Contact Info) Description 02/16/2025 1:45 PM EDT [facility] BMI FHC REJ [address] [place] [address] Amina Light MD [address] [place] [address] follow-up weight management 03/06/2025 3:00 PM EDT [facility] General Surgery BMI PSYL [address] [place] [address] Dinah Perez, PhD [address] [place] [address] Exploring your relationship with food 03/13/2025 3:00 PM EDT [facility] General Surgery BMI PSYL [address] [place] [address] Dinah Perez, PhD [address] [place] [address] Emotional eating 03/20/2025 3:00 PM EDT [facility] Surgery BMI [address] [place], [place] [address] Lolis Mejía RD [address] [facility] [place] [address] Protein and Fluids documented as of this encounter Visit Diagnoses Not on filedocumented in this encounter Care Teams Lawn Mower Operator Relationship Specialty Start Date End Date Elizabet Dodd DO [address] [place] [address] PCP - General Family Medicine 04/16/22 Lolis Mejía RD [address] [place] [address] Nutrition 02/07/25 documented as of this encounter
--- OUTSIDE RECORDS SUMMARY | 2025-02-15 18:32 | XMS_ITS | Encounter Summary ---
Author Organization [facility] Address [address] [place] [address] Care Team Providers Care Bistro Server Name Role Phone WestElizabet gandara DO Primary Care Provider [phone] Lolis Mejía RD Unavailable Unavailable Source Comments In the event this information is protected by the Federal Confidentiality of Alcohol and Drug AbusePatient Records regulations: The Federal rules restrict any use of the information to criminally investigate or prosecute any alcohol or drug abuse patient.[facility] Encounter Details Date Type Department Care Team (Late st Contact Info) Description 05/04/2024 Get Medical Advice General Surgery [address] [place] [address] Amina Light MD [address] [place] [address] Medication question Social History Tobacco Use Types Packs/Day Years Used Date Smoking Tobacco: Former Cigarettes 0.5 5 0 12/27/2008 - 12/27/2013 Smokeless Tobacco: Never Alcohol Use Standard Drinks/Week Comments Not Currently 0 (1 standard drink = 0.6 oz pur e alcohol) None since 2012 [facility] Utilities Answer Date Recorded In the past [...] Contact Info) Description 02/16/2025 1:45 PM EDT [facility] BMI FHC REJ [address] [place] [address] Amina Light MD [address] [place] [address] follow-up weight management 03/06/2025 3:00 PM EDT [facility] General Surgery BMI PSYL [address] [place] [address] Dinah Perez, PhD [address] [place] [address] Exploring your relationship with food 03/13/2025 3:00 PM EDT [facility] General Surgery BMI PSYL [address] [place] [address] Dinah Perez, PhD [address] [place] [address] Emotional eating 03/20/2025 3:00 PM EDT [facility] BMI [address] [place] [address] Lolis Mejía RD [address] [facility] [place] [place] [address] Protein and Fluids documented as of this encounter Visit Diagnoses Not on filedocumented in this encounter Care Teams Bistro Server Relationship Specialty Start Date End Date Elizabet Dodd DO [address] [place] [address] PCP - General Family Medicine 04/16/22 Lolis Mejía RD [address] [place] [address] Nutrition 02/07/25 documented as of this encounter
--- OUTSIDE RECORDS SUMMARY | 2025-02-15 18:32 | XMS_ITS | Patient Health Record ---
Author Organization [email or web address] Address [address] [place] [address] Care Team Providers Care Landscape Architect And Planner Name Role Phone DAYNEDonald duarte Primary Care Provider [phone] Allergies Allergen (clinical drug ingredient) Drug/Non Drug Allergy documented on EMR Reaction Allergy Type Onset Date Status tramadol Ultram Unknown Drug Allergy Active Reason For Referral No Information Medications Medication SIG (Take, Route, Frequency, Duration) Notes Start Date End Date Status Lexapro Active SEROquel Active Plan Of Treatment No Information Insurance Providers Payer Name Payer Address Payer Phone Subscriber Number Group Number Insured Name Patient Relationship to Insured Coverage Start Date Coverage End Date [facility] ed [address]. [address] [place] [address] [id number] NONE ANGELES AMANDA Self - patient is the insured zMEDICAID [facility] after [place]UC[place]E-[id number] med 22 [address] [place] [address] [id number] ANGELES AMANDA Self - patient is the insured Medical (General) History Medical History History ICD Code LBP Bipolar Depression Surgical History Surgery Date(Month/Year) cholecystectomy 2007 carpal tunnel surg
--- OUTSIDE RECORDS SUMMARY | 2025-02-15 18:32 | XMS_ITS | Encounter Summary ---
Author Organization [facility] Address [address] [place] [address] Care Team Providers Care Water Pollution Scientist Name Role Phone WestElizabet gandara DO Primary Care Provider [phone] Lolis Mejía RD Unavailable Unavailable Source Comments In the event this information is protected by the Federal Confidentiality of Alcohol and Drug AbusePatient Records regulations: The Federal rules restrict any use of the information to criminally investigate or prosecute any alcohol or drug abuse patient.[facility] Encounter Details Date Type Department Care Team (Late st Contact Info) Description 11/23/2024 Abstract BMI [facility] REJ [address] [place] [address] Amina Light MD [address] [place] [address] Social History Tobacco Use Types Packs/Day Years Used Date Smoking Tobacco: Former Cigarettes 0.5 5 0 12/27/2008 - 12/27/2013 Smokeless Tobacco: Never Alcohol Use Standard Drinks/Week Comments Not Currently 0 (1 standard drink = 0.6 oz pur e alcohol) None since 2012 [facility] Utilities Answer Date Recorded In the [...] place to sleep or slept in a detention (including now)? No 08/05/2023 Area Deprivation Index Answer Date Wesley rded National Score (1-100), lower number is lower ri sk 64 01/15/2023 State Score (1-10), lower number is lower risk 4 01/15/2023 Data from: https://www.neighborhoodatlas.medicine.[facility].edu/. Last address used for calculation [address] [...] Contact Info) Description 02/16/2025 1:45 PM EDT [facility] BMI FHC REJ 318[address] [place] [address] Amina Light MD [address] [place] [address] follow-up weight management 03/06/2025 3:00 PM EDT [facility] General Surgery BMI PSYL [address] [place] [address] Dinah Perez, PhD [address] [place] [address] Exploring your relationship with food 03/13/2025 3:00 PM EDT [facility] General Surgery BMI PSYL [address] [place] [address] Dinah Perez, PhD [address] [place] [address] Emotional eating 03/20/2025 3:00 PM EDT [facility] Surgery BMI [address] [place], [place] [id number] Lolis Mejía RD [address] [facility] [address] Protein and Fluids documented as of this encounter Visit Diagnoses Not on filedocumented in this encounter Care Teams Water Pollution Scientist Relationship Specialty Start Date End Date Elizabet Dodd DO [address] [place] [address] PCP - General Family Medicine 04/16/22 Lolis Mejía RD [address] [place] [address] Nutrition 02/07/25 documented as of this encounter
--- OUTSIDE RECORDS SUMMARY | 2025-02-15 18:32 | XMS_ITS | Encounter Summary ---
Author Organization [facility] [place] [address] Care Team Providers Care Retail Marketing Coordinator Name Role Phone Elizabet Dodd DO Primary Care Provider Lolis Mejía RD Unavailable Unavailable Source Comments In the event this information is protected by the Federal Confidentiality of Alcohol and Drug AbusePatient Records regulations: The Federal rules restrict any use of the information to criminally investigate or prosecute any alcohol or drug abuse patient.[facility] Encounter Details Date Type Department Care Team (Late st Contact Info) Description 11/04/2023 Patient Msg General Surgery [address] [place] [address] Jayshree Huffman APRN.COAL DUMPING EQUIPMENT OPERATOR [address] [place] [address] vitamin K Social History Tobacco Use Types Packs/Day Years Used Date Smoking Tobacco: Former Cigarettes 0.5 5 0 12/27/2008 - 12/27/2013 Smokeless Tobacco: Never Alcohol Use Standard Drinks/Week Comments Not Currently 0 (1 standard drink = 0.6 oz pur e alcohol) None since 2012 [facility] Utilities Answer Date Recorded In the [...] place to sleep or slept in a snf (including now)? No 08/05/2023 Area Deprivation Index Answer Date Wesley rded National Score (1-100), lower number is lower ri sk 64 01/15/2023 State Score (1-10), lower number is lower risk 4 01/15/2023 Data from: https://www.neighborhoodatlas.medicine.[facility].edu/. Last address used for calculation [address] [...] encounter Miscellaneous Notes * Telephone Encounter - Jayshree Huffman APRN.CNP - 11/04/2023 4:02 PM EDT vi documented in this encounter Plan of Treatment Upcoming Encounters Date Type Department Care Team (Latest Contact Info) Description 02/16/2025 1:45 PM EDT [facility] BMI FHC REJ [address] [place] [address] Amina Light MD [address] [place], [place] [id number] follow-up weight management 03/06/2025 3:00 PM EDT [facility] General Surgery BMI PSYL [address] [place] [address] Dinah Perez, PhD [address] [place] [address] Exploring your relationship with food 03/13/2025 3:00 PM EDT [facility] BMI PSYL [address] [facility] [place] [address] Dinah Perez, PhD [address] [place] [address] Emotional eating 03/20/2025 3:00 PM EDT [facility] BMI [address] [place] [address] Lolis Mejía, RD [address] [place] [address] Protein and Fluids documented as of this encounter Results * VITAMIN K (11/27/2023 12:23 PM EDT) Vitamin K 0.75 0.22 - 4.88 nmol/L 12/03/2023 7:19 PM EDT [facility] Comment: INTERPRETIVE INFORMATION: Vitamin K1, Serum Vitamin K concentration is reported as nanomoles per liter (nmol/L). To convert concentration to nanograms per milliliter (ng/mL), multiply the result by 0.45. This test was developed and its performance characteristics determined by [facility]. It has not been cleared or approved by the US Food and Drug Administration. This test was performed in a CLIA certified laboratory and is intended for clinical purposes. Performed By: [facility] [address] [place] [address] Paint Brush Maker: John Newsome MD, PhD CLIA Number: [id number] Blood BLOOD SPECIMEN / Unknown Venipuncture / Unknown 11/27/2023 12:23 PM EDT 11/27/2023 12:23 PM EDT us Jayshree Huffman APRN.COAL DUMPING EQUIPMENT OPERATOR LABORATORY Final Res ult [facility] [address] [place] [address] documented in this encounter Visit Diagnoses Diagnosis High vitamin K1 level- Primary documented in this encounter Care Teams Retail Marketing Coordinator Relationship Specialty Start Date End Date Elizabet Dodd DO [address] [place] [address] PCP - General Family Medicine 04/16/22 Lolis Mejía, [address] [place] [address] Nutrition 02/07/25 documented as of this encounter
--- OUTSIDE RECORDS SUMMARY | 2025-02-15 18:32 | XMS_ITS | Encounter Summary ---
Author Organization [facility] Address [address] [place] [address] Care Team Providers Care Wire Straightening Machine Operator Name Role Phone WestElizabet gandara DO Primary Care Provider [phone] Lolis Mejía RD Unavailable Unavailable Source Comments In the event this information is protected by the Federal Confidentiality of Alcohol and Drug AbusePatient Records regulations: The Federal rules restrict any use of the information to criminally investigate or prosecute any alcohol or drug abuse patient.[facility] Encounter Details Date Type Department Care Team (Late st Contact Info) Description 10/17/2024 Get Medical Advice [facility] REJ [address] [place], [place] [id number] Amina Light MD [address] [place] [address] Medication question Social History Tobacco Use Types Packs/Day Years Used Date Smoking Tobacco: Former Cigarettes 0.5 5 0 12/27/2008 - 12/27/2013 Smokeless Tobacco: Never Alcohol Use Standard Drinks/Week Comments Not Currently 0 (1 standard drink = 0.6 oz pur e alcohol) None since 2012 [facility] Utilities Answer Date Recorded In [...] place to sleep or slept in a skilled nursing (including now)? No 08/05/2023 Area Deprivation Index Answer Date Wesley rded National Score (1-100), lower number is lower ri sk 64 01/15/2023 State Score (1-10), lower number is lower risk 4 01/15/2023 Data from: https://www.neighborhoodatlas.medicine.[facility].edu/. Last address used for calculation [address] [...] Contact Info) Description 02/16/2025 1:45 PM EDT [facility] BMI FHC REJ [address] [place] [address] Amina Light MD [address] [place] [address] follow-up weight management 03/06/2025 3:00 PM EDT [facility] General Surgery BMI PSYL [address] [place] [address] Dinah Perez, PhD [address] [place] [address] Exploring your relationship with food 03/13/2025 3:00 PM EDT [facility] General Surgery BMI PSYL [address] [place] [address] Dinah Perez, PhD [address] [place] [address] Emotional eating 03/20/2025 3:00 PM EDT [facility] Surgery BMI [address] [place], [place] [address] Lolis Mejía, [address] [facility] [place] [address] Protein and Fluids documented as of this encounter Visit Diagnoses Not on filedocumented in this encounter Care Teams Wire Straightening Machine Operator Relationship Specialty Start Date End Date Elizabet Dodd DO [address] [place] [address] PCP - General Family Medicine 04/16/22 Lolis Mejía, [address] [place] [address] Nutrition 02/07/25 documented as of this encounter
--- OUTSIDE RECORDS SUMMARY | 2025-02-15 18:32 | XMS_ITS | Encounter Summary ---
Author Organization [facility] Address [address] [place] [address] Care Team Providers Care Canine Enforcement Officer Name Role Phone Elizabet Dodd DO Primary Care Provider [phone] Lolis Mejía RD Unavailable Unavailable Source Comments In the event this information is protected by the Federal Confidentiality of Alcohol and Drug AbusePatient Records regulations: The Federal rules restrict any use of the information to criminally investigate or prosecute any alcohol or drug abuse patient.[facility] Encounter Details Date Type Department Care Team (Late st Contact Info) Description 12/07/2024 Patient Msg General Surgery BMI PSYL [address] [place], [place] [id number] Dinah Perez, PhD [address] [place] [id number] Reboot opening Social History Tobacco Use Types Packs/Day Years Used Date Smoking Tobacco: Former Cigarettes 0.5 5 0 12/27/2008 - 12/27/2013 Smokeless Tobacco: Never Alcohol Use Standard Drinks/Week Comments Not Currently 0 (1 standard drink = 0.6 oz pur e alcohol) None since 2012 [facility] Utilities Answer Date Recorded In the past [...] place to sleep or slept in a fpc (including now)? No 08/05/2023 Area Deprivation Index Answer Date Wesley rded National Score (1-100), lower number is lower ri sk 64 01/15/2023 State Score (1-10), lower number is lower risk 4 01/15/2023 Data from: https://www.neighborhoodatlas.medicine.[facility].edu/. Last address used for calculation [address] [...] Info) Description 02/16/2025 1:[address] [facility] BMI FHC REJ [address] [place] [address] Amina Light MD [address] [place] [address] follow-up weight management 03/06/2025 3:[address] [facility] General Surgery BMI PSYL [address] [place] [address] Dinah Perez, PhD [address] [place] [address] Exploring your relationship with food 03/13/2025 3:[address] [facility] General Surgery BMI PSYL [address] [place] [address] Dinah Perez, PhD [address] [place] [address] Emotional eating 03/20/2025 3:00 PM EDT [facility] Surgery BMI [address] [place], [place] [address] Lolis Mejía RD [address] [place] [address] Protein and Fluids documented as of this encounter Visit Diagnoses Not on filedocumented in this encounter Care Teams Canine Enforcement Officer Relationship Specialty Start Date End Date Elizabet Dodd DO [address] [place] [address] PCP - General Family Medicine 04/16/22 Lolis Mejía RD [address] [place] [address] Nutrition 02/07/25 documented as of this encounter
--- OUTSIDE RECORDS SUMMARY | 2025-02-15 18:32 | XMS_ITS | Encounter Summary ---
Author Organization [facility] Address [address] [place] [address] Care Team Providers Care Build Manager Name Role Phone Elizabet oDdd DO Primary Care Provider [phone] Lolis Mejía RD Unavailable Unavailable Source Comments In the event this information is protected by the Federal Confidentiality of Alcohol and Drug AbusePatient Records regulations: The Federal rules restrict any use of the information to criminally investigate or prosecute any alcohol or drug abuse patient.[facility] Encounter Details Date Type Department Care Team (Late st Contact Info) Description 11/02/2023 Patient Msg General Surgery [address] [place] [address] Provider, Ccf Nutrition Summary Social History Tobacco Use Types Packs/Day Years Used Date Smoking Tobacco: Former Cigarettes 0.5 5 0 12/27/2008 - 12/27/2013 Smokeless Tobacco: Never Alcohol Use Standard Drinks/Week Comments Not Currently 0 (1 standard drink = 0.6 oz pur e alcohol) None since 2012 [facility] Utilities Answer Date Recorded In the [...] is lower risk 4 01/15/2023 Data from: https://www.neighborhoodatlas.medicine.[facility].edu/. Last address used for calculation [address] [...] Contact Info) Description 02/16/2025 1:45 PM EDT [facility] BMI FHC REJ [address] [place] [address] Amina Light MD [address] [place] [address] follow-up weight management 03/06/2025 3:00 PM EDT [facility] General Surgery BMI PSYL [address] [place] [address] Dinah Perez, PhD [address] [place] [address] Exploring your relationship with food 03/13/2025 3:00 PM EDT [facility] General Surgery BMI PSYL [address] [place] [address] Dinah Perez, PhD [address] [place] [address] Emotional eating 03/20/2025 3:00 PM EDT [facility] General Surgery BMI [address] [place] [address] Lolis Mejía RD [address] [place] [address] Protein and Fluids documented as of this encounter Visit Diagnoses Not on filedocumented in this encounter Care Teams Build Manager Relationship Specialty Start Date End Date Elizabet Dodd DO [address] [place] [address] PCP - General Family Medicine 04/16/22 Lolis Mejía RD [address] [place] [address] Nutrition 02/07/25 documented as of this encounter
--- OUTSIDE RECORDS SUMMARY | 2025-02-15 18:32 | XMS_ITS | Encounter Summary ---
Author Organization [facility] Address [address] [place] [address] Care Team Providers Care Account Engineer Name Role Phone Elizabet Dodd DO Primary Care Provider [phone] Lolis Mejía RD Unavailable Unavailable Source Comments In the event this information is protected by the Federal Confidentiality of Alcohol and Drug AbusePatient Records regulations: The Federal rules restrict any use of the information to criminally investigate or prosecute any alcohol or drug abuse patient.[facility] Encounter Details Date Type Department Care Team (Late st Contact Info) Description 07/21/2023 Patient Msg General Surgery [address] [place] [address] Provider, Ccf Guideline Link Social History Tobacco Use Types Packs/Day Years [...] is lower risk 4 01/15/2023 Data from: https://www.neighborhoodatlas.medicine.[facility]/. Last address used for calculation [address] [...] 3:56 PM EDT Susi Ruffin RN * Are you blind or do [...] PM EDT [facility] BMI C REJ [address] [place] [address] Amina Light MD [address] [place] [address] follow-up weight management 03/06/2025 3:00 PM EDT [facility] BMI PSYL [address] [place] [address] Dinah Perez, PhD [address] [place] [address] Exploring your relationship with food 03/13/2025 3:00 PM EDT [facility] BMI PSYL [address] [place] [address] Dinah Perez, PhD [address] [place] [address] Emotional eating 03/20/2025 3:00 PM EDT [facility] BMI [address] [place] [address] Lolis Mejía RD [address] [place] [address] Protein and Fluids documented as of this encounter Visit Diagnoses Not on filedocumented in this encounter Care Teams Account Engineer Relationship Specialty Start Date End Date Elizabet Dodd DO [address] [facility] [place] [address] PCP - General Family Medicine 04/16/22 Lolis Mejía RD [address] [place] [address] Nutrition 02/07/25 documented as of this encounter
--- OUTSIDE RECORDS SUMMARY | 2025-02-15 18:32 | XMS_ITS | Encounter Summary ---
Author Organization [facility] Address [address] [place] [address] Care Team Providers Care Program Director Scouting Name Role Phone Elizabet Dodd DO Primary Care Provider Lolis Mejía RD Unavailable Unavailable Source Comments In the event this information is protected by the Federal Confidentiality of Alcohol and Drug AbusePatient Records regulations: The Federal rules restrict any use of the information to criminally investigate or prosecute any alcohol or drug abuse patient.[facility] Encounter Details Date Type Department Care Team (Late st Contact Info) Description 07/18/2024 Patient Msg General Surgery [address] [place] [address] Provider, Ccf EGD Social History Tobacco Use Types Packs/Day Years Used Date Smoking Tobacco: Former Cigarettes 0.5 5 0 12/27/2008 - 12/27/2013 Smokeless Tobacco: Never Alcohol Use Standard Drinks/Week Comments Not Currently 0 (1 standard drink = 0.6 oz pur e alcohol) None since 2012 [facility] Utilities Answer Date Recorded In the [...] is lower risk 4 01/15/2023 Data from: https://www.neighborhoodatlas.medicine.[facility].edu/. Last address used for calculation [address] 01/15/2023 Comments No Sex and Gender [...] [facility] BMI FHC REJ [address] [place] [address] Amina Light MD [address] [place] [address] follow-up weight management 03/06/2025 3:00 PM EDT [facility] General Surgery BMI PSYL [address] [place] [address] Dinah Perez, PhD [address] [place] [address] Exploring your relationship with food 03/13/2025 3:00 PM EDT [facility] General Surgery BMI PSYL [address] [place] [address] Dinah Perez, PhD [address] [place] [address] Emotional eating 03/20/2025 3:00 PM EDT [facility] General Surgery BMI [address] [place] [address] Lolis Mejía RD [address] [place] [address] Protein and Fluids documented as of this encounter Visit Diagnoses Not on filedocumented in this encounter Care Teams Program Director Scouting Relationship Specialty Start Date End Date Elizabet Dodd DO [address] [place] [address] PCP - General Family Medicine 04/16/22 Lolis Mejía RD [address] [place] [address] Nutrition 02/07/25 documented as of this encounter
--- OUTSIDE RECORDS SUMMARY | 2025-02-15 18:32 | XMS_ITS | Encounter Summary ---
Author Organization [facility] Address [facility] [place] [address] Care Team Providers Care Metal Base Blocker Name Role Phone Elizabet Dodd DO Primary Care Provider [phone] Lolis Mejía RD Unavailable Unavailable Source Comments In the event this information is protected by the Federal Confidentiality of Alcohol and Drug AbusePatient Records regulations: The Federal rules restrict any use of the information to criminally investigate or prosecute any alcohol or drug abuse patient.[facility] Encounter Details Date Type Department Care Team (Late st Contact Info) Description 08/31/2023 Get Medical Advice General Surgery BMI [address] [place] [address] Jayshree Huffman APRN.SHOULDER BONER [address] [place] [address] Question about incision Social History Tobacco Use Types Packs/Day Years Used Date Smoking Tobacco: Former Cigarettes 0.5 5 0 12/27/2008 - 12/27/2013 Smokeless Tobacco: Never Alcohol Use Standard Drinks/Week Comments Not Currently 0 (1 standard drink = 0.6 oz pur e alcohol) None since 2012 [facility] Utilities Answer Date [...] is lower risk 4 01/15/2023 Data from: https://www.neighborhoodatlas.medicine.[facility].edu/. Last address used for calculation [address] [...] Description 02/16/2025 1:45 PM EDT [facility] BMI FHC REJ [address] [place] [address] Amina Light MD [address] [place] [address] follow-up weight management 03/06/2025 3:00 PM EDT [facility] General Surgery BMI PSYL [address] [place] [address] Dinah Perez, PhD [address] [place] [address] Exploring your relationship with food 03/13/2025 3:00 PM EDT [facility] General Surgery BMI PSYL [address] [place] [address] Dinah Perez, PhD [address] [place] [address] Emotional eating 03/20/2025 3:00 PM EDT [facility] Surgery BMI [address] [place], [place] [address] Lolis Mejía, [address] [facility] [place] [address] Protein and Fluids documented as of this encounter Visit Diagnoses Not on filedocumented in this encounter Care Teams Metal Base Blocker Relationship Specialty Start Date End Date Elizabet Dodd DO [address] [place] [address] PCP - General Family Medicine 04/16/22 Lolis Mejía, [address] [place] [address] Nutrition 02/07/25 documented as of this encounter
--- OUTSIDE RECORDS SUMMARY | 2025-02-15 18:32 | XMS_ITS | Encounter Summary ---
Author Organization [facility] Address [address] [place] [address] Care Team Providers Care Competency Evaluated Nurse Aide Name Role Phone Elizabet Dodd DO Primary Care Provider [phone] Lolis Mejía RD Unavailable Unavailable Source Comments In the event this information is protected by the Federal Confidentiality of Alcohol and Drug AbusePatient Records regulations: The Federal rules restrict any use of the information to criminally investigate or prosecute any alcohol or drug abuse patient.[facility] Encounter Details Date Type Department Care Team (Late st Contact Info) Description 08/31/2023 Patient Msg General Surgery [address] [place] [address] Provider, Ccf Nutrition Summary Social History Tobacco Use Types Packs/Day Years Used Date Smoking Tobacco: Former Cigarettes 0.5 5 0 12/27/2008 - 12/27/2013 Smokeless Tobacco: Never Alcohol Use Standard Drinks/Week Comments Not Currently 0 (1 standard drink = 0.6 oz pur e alcohol) None since 2012 [facility] Utilities Answer Date Recorded In the [...] place to sleep or slept in a correction (including now)? No 08/05/2023 Area Deprivation Index Answer Date Wesley rded National Score (1-100), lower number is lower ri sk 64 01/15/2023 State Score (1-10), lower number is lower risk 4 01/15/2023 Data from: https://www.neighborhoodatlas.medicine.[facility].edu/. Last address used for calculation [...] Contact Info) Description 02/16/2025 1:45 PM EDT [facility] BMI FHC REJ [address] [place] [address] Amina Light MD [address] [place] [address] follow-up weight management 03/06/2025 3:00 PM EDT [facility] General Surgery BMI PSYL [address] [place] [address] Dinah Perez, PhD [address] [place] [address] Exploring your relationship with food 03/13/2025 3:00 PM EDT [facility] General Surgery BMI PSYL [address] [place] [address] Dinah Perez, PhD [address] [place] [address] Emotional eating 03/20/2025 3:00 PM EDT [facility] General Surgery BMI [address] [place] [address] Lolis Mejía RD [address] [place] [address] Protein and Fluids documented as of this encounter Visit Diagnoses Not on filedocumented in this encounter Care Teams Competency Evaluated Nurse Aide Relationship Specialty Start Date End Date Elizabet Dodd DO [address] [place] [address] PCP - General Family Medicine 04/16/22 Lolis Mejía RD [address] [place] [address] Nutrition 02/07/25 documented as of this encounter
--- OUTSIDE RECORDS SUMMARY | 2025-02-15 18:32 | XMS_ITS | Encounter Summary ---
Author Organization [facility] Address [address] [place] [address] Care Team Providers Care Big Machine Consultant Name Role Phone Elizabet Ddod DO Primary Care Provider Lolis Mejía RD Unavailable Unavailable Source Comments In the event this information is protected by the Federal Confidentiality of Alcohol and Drug AbusePatient Records regulations: The Federal rules restrict any use of the information to criminally investigate or prosecute any alcohol or drug abuse patient.[facility] Encounter Details Date Type Department Care Team (Late st Contact Info) Description 01/03/2025 Patient Msg Endocrinology [address] [place] [address] Elias Celestin, PhD [address] [place] [id number] chair exercises Social History Tobacco Use Types Packs/Day Years Used Date Smoking Tobacco: Former Cigarettes 0.5 5 0 12/27/2008 - 12/27/2013 Smokeless Tobacco: Never Alcohol Use Standard Drinks/Week Comments Not Currently 0 (1 standard drink = 0.6 oz pur e alcohol) None since 2012 [facility] Utilities Answer Date Recorded In the [...] place to sleep or slept in a fdc (including now)? No 08/05/2023 Area Deprivation Index Answer Date Wesley rded National Score (1-100), lower number is lower ri sk 64 01/15/2023 State Score (1-10), lower number is lower risk 4 01/15/2023 Data from: https://www.neighborhoodatlas.medicine.[facility].edu/. Last address used for calculation [...] Info) Description 02/16/2025 1:45 PM EDT [facility] BMI FHC REJ [address] [place] [address] Amina Light MD [address] [place] [address] follow-up weight management 03/06/2025 3:00 PM EDT [facility] General Surgery BMI PSYL [address] [place] [address] Dinah Perez, PhD [address] [place] [address] Exploring your relationship with food 03/13/2025 3:00 PM EDT [facility] General Surgery BMI PSYL [address] [place] [address] Dinah Perez, PhD 06[address] [place] [address] Emotional eating 03/20/2025 3:00 PM EDT [facility] Surgery BMI [address] [place], [place] [id number] Lolis Mejía RD [address] [facility] [place] [address] Protein and Fluids documented as of this encounter Visit Diagnoses Not on filedocumented in this encounter Care Teams Big Machine Consultant Relationship Specialty Start Date End Date Elizabet Dodd DO [address] [place] [address] PCP - General Family Medicine 04/16/22 Lolis Mejía RD [address] [place] [address] Nutrition 02/07/25 documented as of this encounter
--- OUTSIDE RECORDS SUMMARY | 2025-02-15 18:32 | XMS_ITS | Encounter Summary ---
Author Organization [facility] Address [address] [place] [address] Care Team Providers Care Brass Molder Helper Name Role Phone Elizabet Dodd DO Primary Care Provider [phone] Lolis Mejía RD Unavailable Unavailable Source Comments In the event this information is protected by the Federal Confidentiality of Alcohol and Drug AbusePatient Records regulations: The Federal rules restrict any use of the information to criminally investigate or prosecute any alcohol or drug abuse patient.[facility] Encounter Details Date Type Department Care Team (Late st Contact Info) Description 08/08/2024 Patient Msg BMI [facility] REJ 55536 [facility] [place], [place] [id number] Provider, Ccf Nutrition Summary Social History Tobacco Use Types Packs/Day Years Used Date Smoking Tobacco: Former Cigarettes 0.5 5 0 12/27/2008 - 12/27/2013 Smokeless Tobacco: Never Alcohol Use Standard Drinks/Week Comments Not Currently 0 (1 standard drink = 0.6 oz pur e alcohol) None since 2012 [facility] Utilities Answer Date Recorded In the past 12 months has e [employer], gas, oil, or water company threatened to [...] Last address used for calculation [address] 01/15/2023 Comments No Sex and Gender [...] Info) Description 02/16/2025 1:45 PM EDT [facility] BMI FHC REJ 244[address] [place] [address] Amina Light MD [address] [place] [address] follow-up weight management 03/06/2025 3:00 PM EDT [facility] General Surgery BMI PSYL [address] [place] [address] Dinah Perez, PhD [address] [place] [address] Exploring your relationship with food 03/13/2025 3:00 PM EDT [facility] General Surgery BMI PSYL [address] [place] [address] Dinah Perez, PhD [address] [place] [address] Emotional eating 03/20/2025 3:00 PM EDT [facility] General Surgery BMI [address] [place] [address] Lolis Mejía RD [address] [place] [address] Protein and Fluids documented as of this encounter Visit Diagnoses Not on filedocumented in this encounter Care Teams Brass Molder Helper Relationship Specialty Start Date End Date Elizabet Dodd DO [address] [place] [address] PCP - General Family Medicine 04/16/22 Lolis Mejía RD [address] [place] [address] Nutrition 02/07/25 documented as of this encounter
--- OUTSIDE RECORDS SUMMARY | 2025-02-15 18:32 | XMS_ITS | Encounter Summary ---
Author Organization [facility] Address [address] [place] [address] Care Team Providers Care Facility Service Manager Name Role Phone Elizabet Dodd DO Primary Care Provider [phone] Lolis Mejía RD Unavailable Unavailable Source Comments In the event this information is protected by the Federal Confidentiality of Alcohol and Drug AbusePatient Records regulations: The Federal rules restrict any use of the information to criminally investigate or prosecute any alcohol or drug abuse patient.[facility] Encounter Details Date Type Department Care Team (Late st Contact Info) Description 08/19/2023 Patient Msg BMI [facility] REJ [address] [place], [place] [id number] Provider, Ccf Nutrition Summary Social History Tobacco Use Types Packs/Day Years Used Date Smoking Tobacco: Former Cigarettes 0.5 5 0 12/27/2008 - 12/27/2013 Smokeless Tobacco: Never Alcohol Use Standard Drinks/Week Comments Not Currently 0 (1 standard drink = 0.6 oz pur e alcohol) None since 2012 [facility] Utilities Answer Date Recorded In the [...] Answer Date Recorded PHQ-2 score 1 04/23/2023 Hunger Vital Sign Answer Date Recorded Within [...] place to sleep or slept in a halfway (including now)? No 08/05/2023 Area Deprivation Index Answer Date Wesley rded National Score (1-100), lower number is lower ri sk 64 01/15/2023 State Score (1-10), lower number is lower risk 4 01/15/2023 Data from: https://www.neighborhoodatlas.medicine.[facility].edu/. Last address used for calculation [address] 01/15/2023 Comments No Sex and Gender [...] EDT [facility] BMI FHC REJ [address] [place] [address] Amina Light MD [address] [place] [address] follow-up weight management 03/06/2025 3:00 PM EDT [facility] General Surgery BMI PSYL [address] [place] [address] Dinah Perez, PhD [address] [place] [address] Exploring your relationship with food 03/13/2025 3:00 PM EDT [facility] General Surgery BMI PSYL [address] [place] [address] Dinah Perez, PhD [address] [place] [address] Emotional eating 03/20/2025 3:00 PM EDT [facility] General Surgery BMI [address] [place] [address] Lolis Mejía RD [address] [place] [address] Protein and Fluids documented as of this encounter Visit Diagnoses Not on filedocumented in this encounter Care Teams Facility Service Manager Relationship Specialty Start Date End Date Elizabet Dodd DO [address] [place] [address] PCP - General Family Medicine 04/16/22 Lolis Mejía RD [address] [place] [address] Nutrition 02/07/25 documented as of this encounter
--- OUTSIDE RECORDS SUMMARY | 2025-02-15 18:32 | XMS_ITS | Encounter Summary ---
Author Organization [facility] Address [address] [place] [address] Care Team Providers Care Supply Planner Name Role Phone WestElizabet gandara DO Primary Care Provider [phone] Lolis Mejía RD Unavailable Unavailable Source Comments In the event this information is protected by the Federal Confidentiality of Alcohol and Drug AbusePatient Records regulations: The Federal rules restrict any use of the information to criminally investigate or prosecute any alcohol or drug abuse patient.[facility] Encounter Details Date Type Department Care Team (Late st Contact Info) Description 12/28/2024 Get Medical Advice General Surgery [address] [place] [address] Amina Light MD [address] [place] [address] Question regarding test results Social History Tobacco Use Types Packs/Day Years Used Date Smoking Tobacco: Former Cigarettes 0.5 5 0 12/27/2008 - 12/27/2013 Smokeless Tobacco: Never Alcohol Use Standard Drinks/Week Comments Not Currently 0 (1 standard drink = 0.6 oz pur e alcohol) None since 2012 [facility] Utilities Answer Date Recorded In the [...] PHQ-2 Answer Date Recorded PHQ-2 score 2 12/28/2024 Hunger Vital Sign Answer Date Recorded Within [...] is lower risk 4 01/15/2023 Data from: https://www.neighborhoodatlas.medicine.[facility].edu/. Last address used for calculation [address] [...] Description 02/16/2025 1:45 PM EDT [facility] BMI FHC REJ [address] [place] [address] Amina Light MD [address] [place] [address] follow-up weight management 03/06/2025 3:00 PM EDT [facility] General Surgery BMI PSYL [address] [place] [address] Dinah Perez, PhD [address] [place] [address] Exploring your relationship with food 03/13/2025 3:00 PM EDT [facility] General Surgery BMI PSYL [address] [place] [address] Dinah Perez, PhD [address] [place] [address] Emotional eating 03/20/2025 3:00 PM EDT [facility] Surgery BMI [address] [place], [place] [id number] Lolis Mejía, [address] [facility] [place] [address] Protein and Fluids documented as of this encounter Visit Diagnoses Not on filedocumented in this encounter Care Teams Supply Planner Relationship Specialty Start Date End Date Elizabet Dodd DO [address] [place] [address] PCP - General Family Medicine 04/16/22 Lolis Mejía, [address] [place] [address] Nutrition 02/07/25 documented as of this encounter
--- OUTSIDE RECORDS SUMMARY | 2025-02-15 18:32 | XMS_ITS | Encounter Summary ---
Author Organization [facility] Address [address] [place] [address] Care Team Providers Care Silo Man Name Role Phone WestElizabet gandara DO Primary Care Provider [phone] Lolis Mejía RD Unavailable Unavailable Source Comments In the event this information is protected by the Federal Confidentiality of Alcohol and Drug AbusePatient Records regulations: The Federal rules restrict any use of the information to criminally investigate or prosecute any alcohol or drug abuse patient.[facility] Encounter Details Date Type Department Care Team (Late st Contact Info) Description 12/06/2024 Get Medical Advice General Surgery [address] [place] [address] Amina Light MD [address] [place] [address] Follow up Social History Tobacco Use Types Packs/Day Years Used Date Smoking Tobacco: Former Cigarettes 0.5 5 0 12/27/2008 - 12/27/2013 Smokeless Tobacco: Never Alcohol Use Standard Drinks/Week Comments Not Currently 0 (1 standard drink = 0.6 oz pur e alcohol) None since 2012 [facility] Utilities Answer Date Recorded In the [...] [facility] BMI FHC REJ [address] [place] [address] Amina Light MD [address] [place] [address] follow-up weight management 03/06/2025 3:00 PM EDT [facility] General Surgery BMI PSYL [address] [place] [address] Dinah Perez, PhD [address] [place] [address] Exploring your relationship with food 03/13/2025 3:00 PM EDT [facility] General Surgery BMI PSYL [address] [place] [address] Dinah Perez, PhD [address] [place] [address] Emotional eating 03/20/2025 3:00 PM EDT [facility] Surgery BMI [address] [place] [address] Lolis Mejía RD [address] [facility] [place] [address] Protein and Fluids documented as of this encounter Visit Diagnoses Not on filedocumented in this encounter Care Teams Silo Man Relationship Specialty Start Date End Date Elizabet Dodd DO [address] [place] [address] PCP - General Family Medicine 04/16/22 Lolis Mejía RD [address] [place] [address] Nutrition 02/07/25 documented as of this encounter
--- OUTSIDE RECORDS SUMMARY | 2025-02-15 18:32 | XMS_ITS | Encounter Summary ---
Author Organization [facility] Address [address] [place] [address] Care Team Providers Care Senior Safety Support Manager Name Role Phone Elizabet Dodd DO Primary Care Provider [phone] Lolis Mejía RD Unavailable Unavailable Source Comments In the event this information is protected by the Federal Confidentiality of Alcohol and Drug AbusePatient Records regulations: The Federal rules restrict any use of the information to criminally investigate or prosecute any alcohol or drug abuse patient.[facility] Encounter Details Date Type Department Care Team (Late st Contact Info) Description 05/05/2024 Patient Msg BMI [facility] REJ [address] [place], [place] [phone] Provider, Ccf Nutrition Summary Social History Tobacco Use Types Packs/Day Years Used Date Smoking Tobacco: Former Cigarettes 0.5 5 0 12/27/2008 - 12/27/2013 Smokeless Tobacco: Never Alcohol Use Standard Drinks/Week Comments Not Currently 0 (1 standard drink = 0.6 oz pur e alcohol) None since 2012 [facility] Utilities Answer Date Recorded In the past [...] is lower risk 4 01/15/2023 Data from: https://www.neighborhoodatlas.medicine.[facility].edu/. Last address used for calculation [address] 01/15/2023 Comments No Sex and Gender [...] Contact Info) Description 02/16/2025 1:45 PM EDT [facility] BMI FHC REJ [address] [place] [address] Amina Light MD [address] [place] [address] follow-up weight management 03/06/2025 3:00 PM EDT [facility] General Surgery BMI PSYL [address]957 [place] [address] Dinah Perez, PhD [address] [place] [address] Exploring your relationship with food 03/13/2025 3:00 PM EDT [facility] General Surgery BMI PSYL [address] [place] [address] Dinah Perez, PhD [address] [place] [address] Emotional eating 03/20/2025 3:00 PM EDT [facility] General Surgery BMI [address] [place] [address] Lolis Mejía RD [address] [place] [address] Protein and Fluids documented as of this encounter Visit Diagnoses Not on filedocumented in this encounter Care Teams Senior Safety Support Manager Relationship Specialty Start Date End Date Elizabet Dodd DO [address] [place] [address] PCP - General Family Medicine 04/16/22 Lolis Mejía RD [address] [place] [address] Nutrition 02/07/25 documented as of this encounter
--- OUTSIDE RECORDS SUMMARY | 2025-02-15 18:32 | XMS_ITS | Encounter Summary ---
Author Organization [facility] Address [address] [place] [address] Care Team Providers Care Premix Operator Concentrate Name Role Phone Elizabet Dodd DO Primary Care Provider [phone] Lolis Mejía RD Unavailable Unavailable Source Comments In the event this information is protected by the Federal Confidentiality of Alcohol and Drug AbusePatient Records regulations: The Federal rules restrict any use of the information to criminally investigate or prosecute any alcohol or drug abuse patient.[facility] Encounter Details Date Type Department Care Team (Late st Contact Info) Description 12/21/2024 Patient Msg General Surgery BMI PSYL [address] [place], [place] [id number] Dinah Perez, PhD [address] [place] [phone] Reboot starting next week! Social History Tobacco Use Types Packs/Day Years Used Date Smoking Tobacco: Former Cigarettes 0.5 5 0 12/27/2008 - 12/27/2013 Smokeless Tobacco: Never Alcohol Use Standard Drinks/Week Comments Not Currently 0 (1 standard drink = 0.6 oz pur e alcohol) None since 2012 [facility] Utilities Answer Date Recorded In the past [...] 08/05/2023 PHQ-2 Answer Date Recorded PHQ-2 score 4 12/21/2024 Hunger Vital Sign Answer Date Recorded Within [...] Contact Info) Description 02/16/2025 1:45 PM EDT [facility] BMI FHC REJ [address] [place] [address] Amina Light MD [address] [place] [address] follow-up weight management 03/06/2025 3:00 PM EDT [facility] General Surgery BMI PSYL [address] [place] [address] Dinah Perez, PhD [address] [place] [address] Exploring your relationship with food 03/13/2025 3:00 PM EDT [facility] General Surgery BMI PSYL [address] [place] [address] Dinah Perez, PhD [address] [place] [address] Emotional eating 03/20/2025 3:00 PM EDT [facility] Surgery BMI [address] [place] [address] Lolis Mejía RD [address] [facility] [place] [address] Protein and Fluids documented as of this encounter Visit Diagnoses Not on filedocumented in this encounter Care Teams Premix Operator Concentrate Relationship Specialty Start Date End Date Elizabet Dodd DO [address] [place] [address] PCP - General Family Medicine 04/16/22 Lolis Mejía RD [address] [place] [address] Nutrition 02/07/25 documented as of this encounter
--- OUTSIDE RECORDS SUMMARY | 2025-02-15 18:32 | XMS_ITS | Encounter Summary ---
Author Organization [facility] Address [address] [place] [address] Care Team Providers Care Director Pharmaceutical Name Role Phone WestElizabet gandara DO Primary Care Provider [phone] Lolis Mejía RD Unavailable Unavailable Source Comments In the event this information is protected by the Federal Confidentiality of Alcohol and Drug AbusePatient Records regulations: The Federal rules restrict any use of the information to criminally investigate or prosecute any alcohol or drug abuse patient.[facility] Reason for Visit * Reason Comments Appointment Encounter Details Date Type Department Care Team (Late st Contact Info) Description 08/08/2024 Telephone BMI [facility] REJ 444[address] [place], [place] [id number] Amina Light MD [address] [place] [address] Appointment Social History Tobacco Use Types Packs/Day Years Used Date Smoking Tobacco: Former Cigarettes 0.5 5 0 12/27/2008 - 12/27/2013 Smokeless Tobacco: Never Alcohol Use Standard Drinks/Week Comments Not Currently 0 (1 standard drink = 0.6 oz pur e alcohol) None since 2012 [facility] Utilities Answer Date Recorded In the [...] is lower risk 4 01/15/2023 Data from: https://www.neighborhoodatlas.medicine.[facility].edu/. Last address used for calculation [...] encounter Miscellaneous Notes * Telephone Encounter - Walt Victor - 08/17/2024 4:02 PM EST Called and spoke with patient. Patient is scheduled. * Telephone Encounter - Amina Light MD - 08/08/2024 9:56 AM EST Follow up approximately October or November. TY documented in this encounter Plan of Treatment Upcoming Encounters Date Type Department Care Team (Latest Contact Info) Description 02/16/2025 1:45 PM EDT [facility] BMI FHC REJ [address] [place] [address] Amina Light MD [address] [place] [address] follow-up weight management 03/06/2025 3:00 PM EDT [facility] BMI PSYL [address] [place] [address] Dinah Perez, PhD [address] [place] [address] Exploring your relationship with food 03/13/2025 3:00 PM EDT [facility] BMI PSYL [address] [place] [address] Dinah Perez, PhD [address] [place] [address] Emotional eating 03/20/2025 3:00 PM EDT [facility] BMI [address] [place] [address] Lolis Mejía RD [address] [place] [place] [address] Protein and Fluids documented as of this encounter Visit Diagnoses Not on filedocumented in this encounter Care Teams Director Pharmaceutical Relationship Specialty Start Date End Date Elizabet Dodd DO [address] [place] [address] PCP - General Family Medicine 04/16/22 Lolis Mejía RD [address] [place] [address] Nutrition 02/07/25 documented as of this encounter
--- OUTSIDE RECORDS SUMMARY | 2025-02-15 18:32 | XMS_ITS | Encounter Summary ---
Author Organization [facility] Address [address] [place] [address] Care Team Providers Care Travel Rn Name Role Phone WestElizabet gandara DO Primary Care Provider [phone] Lolis Mejía RD Unavailable Unavailable Source Comments In the event this information is protected by the Federal Confidentiality of Alcohol and Drug AbusePatient Records regulations: The Federal rules restrict any use of the information to criminally investigate or prosecute any alcohol or drug abuse patient.[facility] Encounter Details Date Type Department Care Team (Late st Contact Info) Description 02/10/2024 Abstract BMI [facility] REJ [address] [place] [address] Amina Light MD [address] [place] [address] Social History Tobacco Use Types Packs/Day Years Used Date Smoking Tobacco: Former Cigarettes 0.5 5 0 12/27/2008 - 12/27/2013 Smokeless Tobacco: Never Alcohol Use Standard Drinks/Week Comments Not Currently 0 (1 standard drink = 0.6 oz pur e alcohol) None since [address] [facility] Utilities Answer Date Recorded In [...] is lower risk 4 01/15/2023 Data from: https://www.neighborhoodatlas.medicine.[facility].edu/. Last address used for calculation [address] [...] Contact Info) Description 02/16/2025 1:45 PM EDT [facility] BMI FHC REJ [address] [place] [address] Amina Light MD [address] [place] [address] follow-up weight management 03/06/2025 3:00 PM EDT [facility] General Surgery BMI PSYL [address] [place] [address] Dinah Perez, PhD [address] [place] [address] Exploring your relationship with food 03/13/2025 3:00 PM EDT [facility] General Surgery BMI PSYL [address] [place] [address] Dinah Perez, PhD [address] [facility] [place] [address] Emotional eating 03/20/2025 3:00 PM EDT [facility] Surgery BMI [address] [place], [place] [id number] Lolis Mejía RD [address] [facility] [place] [address] Protein and Fluids documented as of this encounter Visit Diagnoses Not on filedocumented in this encounter Care Teams Travel Rn Relationship Specialty Start Date End Date Elizabet Dodd DO [address] [place] [address] PCP - General Family Medicine 04/16/22 Lolis Mejía RD [address] [place] [address] Nutrition 02/07/25 documented as of this encounter
--- OUTSIDE RECORDS SUMMARY | 2025-02-15 18:32 | XMS_ITS | Encounter Summary ---
Author Organization [facility] Address [address] [place] [address] Care Team Providers Care Vacuum Bottle Assembler Name Role Phone Elizabet Dodd DO Primary Care Provider [phone] Lolis Mejía RD Unavailable Unavailable Source Comments In the event this information is protected by the Federal Confidentiality of Alcohol and Drug AbusePatient Records regulations: The Federal rules restrict any use of the information to criminally investigate or prosecute any alcohol or drug abuse patient.[facility] Encounter Details Date Type Department Care Team (Late st Contact Info) Description 07/08/2024 Patient Msg [facility] REJ [address] [facility] [place], [place] [id number] [place] [address] [place], [place] [id number] Appointment Request Social History Tobacco Use Types Packs/Day Years [...] lower risk 4 01/15/2023 Data from: https://www.neighborhoodatlas.medicine.[facility].edu/. Last address used for calculation [...] Info) Description 02/16/2025 1:45 PM EDT [facility] BMI FHC REJ [address] [place] [address] Amina Light MD [address] [place] [address] follow-up weight management 03/06/2025 3:00 PM EDT [facility] General Surgery BMI PSYL [address] [place] [address] Dinah Perez, PhD [address] [place] [address] Exploring your relationship with food 03/13/2025 3:00 PM EDT [facility] General Surgery BMI PSYL [address] [place] [address] Dinah Perez, PhD [address] [place] [address] Emotional eating 03/20/2025 3:00 PM EDT [facility] Surgery BMI [address] [place] [address] Lolis Mejía, [address] [facility] [place] [address] Protein and Fluids documented as of this encounter Visit Diagnoses Not on filedocumented in this encounter Care Teams Vacuum Bottle Assembler Relationship Specialty Start Date End Date Elizabet Dodd DO [address] [place] [address] PCP - General Family Medicine 04/16/22 Lolis Mejía, BRENDON [address] [place] [address] Nutrition 02/07/25 documented as of this encounter
--- OUTSIDE RECORDS SUMMARY | 2025-02-15 18:32 | XMS_ITS | Encounter Summary ---
Author Organization [facility] Address [address] [place] [address] Care Team Providers Care Vp Talent Management Name Role Phone WestElizabet gandara DO Primary Care Provider [phone] Lolis Mejía RD Unavailable Unavailable Source Comments In the event this information is protected by the Federal Confidentiality of Alcohol and Drug AbusePatient Records regulations: The Federal rules restrict any use of the information to criminally investigate or prosecute any alcohol or drug abuse patient.[facility] Encounter Details Date Type Department Care Team (Late st Contact Info) Description 11/03/2023 Patient Msg BMI [facility] REJ [address] [place], [place] [id number] Amina Light MD [address] [place] [address] Appointment Request Social History Tobacco Use Types Packs/Day Years Used Date Smoking Tobacco: Former Cigarettes 0.5 5 0 12/27/2008 - 12/27/2013 Smokeless Tobacco: Never Alcohol Use Standard Drinks/Week Comments Not Currently 0 (1 standard drink = 0.6 oz pur e alcohol) None since 2012 [facility] Utilities Answer Date Recorded In the [...] is lower risk 4 01/15/2023 Data from: https://www.neighborhoodatlas.medicine.[facility].edu/. Last address used for calculation [...] Contact Info) Description 02/16/2025 1:45 PM EDT [facility] BMI FHC REJ [address] [place] [address] Amina Light MD [address] [place] [address] follow-up weight management 03/06/2025 3:00 PM EDT [facility] General Surgery BMI PSYL [address] [place] [address] Dinah Perez, PhD [address] [place] [address] Exploring your relationship with food 03/13/2025 3:00 PM EDT [facility] General Surgery BMI PSYL [address] [place] [address] Dinah Perez, PhD [address] [place] [address] Emotional eating 03/20/2025 3:00 PM EDT [facility] Surgery BMI [address] [place], [place] [id number] Lolis Mejía, BRENDON [address] [facility] [address] Protein and Fluids documented as of this encounter Visit Diagnoses Not on filedocumented in this encounter Care Teams Vp Talent Management Relationship Specialty Start Date End Date Elizabet Dodd DO [address] [place] [address] PCP - General Family Medicine 04/16/22 Lolis Mejía, BRENDON [address] [place] [address] Nutrition 02/07/25 documented as of this encounter
[2025-02-15 18:51] VITALS: BP 110/75; PULSE 96; TEMP 35.5; O2SAT 95; BMI 67.8
--- NOTE | 2025-02-15 18:59 | US_ITS ---
The [address] [address] Patient Name: ANGELES ORTIZ MRN: [id number] date: 1985 Sex: F Assigned Patient Location: ED.MAIN Current Patient Location: ED.MAIN Accession/Order Number: [id number] Exam Date: 02/15/2025 20:53 Report Date: 02/15/2025 20:57 At the request of: CHARLIE GRIDER Procedure: US pelvis transvaginal Transabdominal and transvaginal pelvic ultrasound HISTORY: Ovarian cyst. Right pelvic pain. Uterus measures 9.1 x 4.5 x 5.3 cm. IUD in the fundal position in the endometrial cavity. Heterogeneous hypoechoic 2.8 cm lesion in the cervix likely represents fibroid versus complex nabothian cyst. Endometrial thickness of 11 mm. Right ovary measures 4.8 x 3.8 x 3 point centimeters with resistive index of 0.55. Right ovarian complex septated cyst measures up to 3.3 cm. Peripheral vascularity seen. Similar examination 10/05/2024. Left are not visualized. Overlying bowel gas. Large patient body habitus. No free fluid. US/US pelvis transvaginal IMPRESSION: Anteverted uterus. Suspected fibroid versus complex nabothian cyst in the cervical region. IUD present within the endometrial cavity. Color-flow right ovary. 3.3 cm complex septated cystic lesion of the right ovary. Similar findings to examination 10/05/2024. Nonvisualization of left ovary. Impression dictated by: Kevin Jones M.D. 02/15/2025 8:57 PM Dictation Location: [place] [address] Electronically authenticated by: [id number] Y Date: 02/15/2025 20:57
[2025-02-15] MEDS: KETOROLAC TROMETHAMINE 60 MG/2 ML VIAL IM (20:43)
--- NOTE | 2025-02-15 20:45 | ED.FEMALEGU1 ---
HPI - Female Genitourinary General Chief complaint: Urogenital-Female Stated complaint: Cyst on ovary Time Seen by Provider: 02/15/25 18:59 Source: patient Mode of arrival: walk-in History of Present Illness HPI Narrative: 39-year-old female presents here with a chief complaint of a 3 to 4-day history of right lower quadrant abdominal pain. Patient has a known history of ovarian cyst and states the pain is similar. Patient denies any fever chills nausea or vomiting. She denies any urinary symptoms including dysuria or vaginal discharge. She states she is not sexually active. Vital signs are stable. Related Data Home Medications ?Medication ?Instructions ?Recorded ?Confirmed aripiprazole 10 mg tablet 15 mg PO DAILY 12/13/22 02/15/25 buspirone 15 mg tablet 15 mg PO BID 12/13/22 02/15/25 cetirizine 10 mg tablet 10 mg PO DAILY 12/13/22 02/15/25 duloxetine 60 mg capsule,delayed 60 mg PO DAILY 12/13/22 02/15/25 release famotidine 20 mg tablet 20 mg PO Q12H PRN GI 12/13/22 02/15/25 lamotrigine 100 mg tablet 100 mg PO DAILY 12/13/22 02/15/25 montelukast 10 mg tablet 10 mg PO DAILY 12/13/22 02/15/25 omeprazole 40 mg capsule,delayed 40 mg PO DAILY 12/13/22 02/15/25 release pantoprazole 40 mg tablet,delayed 40 mg PO DAILY GI 12/13/22 02/15/25 release propranolol 60 mg tablet 60 mg PO Q12H 12/13/22 02/15/25 hydrochlorothiazide 12.5 mg tablet 12.5 mg PO QDAY 10/02/23 02/15/25 rizatriptan 10 mg disintegrating 10 mg PO Q2H PRN migraine headache 10/02/23 02/15/25 tablet dulaglutide 1.5 mg/0.5 mL 1.5 mg subcut QWEEK 02/15/25 02/15/25 subcutaneous pen injector ([facility]) metformin 500 mg tablet mg 02/15/25 ropinirole 02/15/25 Allergies Allergy/AdvReac Type Severity Reaction Status Date / Time adhesive tape Allergy Rash Verified 02/15/25 18:44 cephalexin (From Keflex) Allergy Rash Verified 02/15/25 18:44 Penicillins Allergy Rash Verified 02/15/25 18:44 amoxicillin (From Augmentin) AdvReac Gastrointestinal Verified 02/15/25 18:44 Upset clavulanic acid (From AdvReac Gastrointestinal Verified 02/15/25 18:44 Augmentin) Upset tramadol (From Ultram) AdvReac Gastrointestinal Verified 02/15/25 18:44 Upset Review of Systems ROS Status of ROS 10 or more systems reviewed and unremarkable except as noted in history and below [facility] Medical History (Updated 02/15/25 @ 21:01 by Kirsty Orlando) Ulnar neuropathy ?G56.20 - Lesion of ulnar nerve, unspecified upper limb (ICD-10) Anemia ?D64.9 - Anemia, unspecified (ICD-10) Insomnia ?G47.00 - Insomnia, unspecified (ICD-10) PTSD (post-traumatic stress disorder) ?F43.10 - Post-traumatic stress disorder, unspecified (ICD-10) Panic attacks ?F41.0 - Panic disorder [episodic paroxysmal anxiety] (ICD-10) Anxiety ?F41.9 - Anxiety disorder, unspecified (ICD-10) Depression ?F32.A - Depression, unspecified (ICD-10) COVID-19 ?U07.1 - COVID-19 (ICD-10) Migraine ?G43.909 - Migraine, unspecified, not intractable, without status migrainosus (ICD-10) Kidney stones ?N20.0 - Calculus of kidney (ICD-10) Heartburn ?R12 - Heartburn (ICD-10) Hypertension ?I10 - Essential (primary) hypertension (ICD-10) Sleep apnea ?G47.30 - Sleep apnea, unspecified (ICD-10) Pituitary tumor ?D49.7 - Neoplasm of unspecified behavior of endocrine glands and other parts of nervous system (ICD-10) GERD (gastroesophageal reflux disease) ?K21.9 - Gastro-esophageal reflux disease without esophagitis (ICD-10) Eczema ?L30.9 - Dermatitis, unspecified (ICD-10) Chronic back pain ?M54.9 - Dorsalgia, unspecified (ICD-10) ?G89.29 - Other chronic pain (ICD-10) Bipolar depression ?F31.9 - Bipolar disorder, unspecified (ICD-10) Retained intrauterine contraceptive device (IUD) ?T83.39XA - Other mechanical complication of intrauterine contraceptive device, initial encounter (ICD-10) Surgical History (Updated 10/02/23 @ 09:19 by Mariia Moscoso NP) History of esophagogastroduodenoscopy (EGD) ?Z98.890 - Other specified postprocedural states (ICD-10) 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 - Bariatric surgery status (ICD-10) History of tonsillectomy ?Z90.89 - Acquired absence of other organs (ICD-10) History of cholecystectomy ?Z90.49 - Acquired absence of other specified parts of digestive tract (ICD-10) History of carpal tunnel release ?Z98.890 - Other specified postprocedural states (ICD-10) History of spinal surgery ?Z98.890 - Other specified postprocedural states (ICD-10) History of spinal surgery ?Z98.890 - Other specified postprocedural states (ICD-10) H/O splenectomy ?Z90.81 - Acquired absence of spleen (ICD-10) H/O laparoscopy ?Z98.890 - Other specified postprocedural states (ICD-10) H/O gastric sleeve ?Z90.3 - Acquired absence of stomach [part of] (ICD-10) Family History (Updated 10/02/23 @ 09:19 by Mariia Moscoso NP) Other Family history of diabetes mellitus Family history of hypertension Family history of myocardial infarction Lymphoma Social History Within the past year, how often did you have a drink containing alcohol: never Score interpretation: A score less than 3 is consistent with normal alcohol consumption. Smoking status: Former smoker Non-prescribed substance use: denies use Highest level of school completed/degree received: Associate degree: occupational, technical, vocational program Little interest or pleasure in doing things: not at all Feeling down, depressed, or hopeless: not at all Exam Narrative Exam Narrative: All Systems are negative except as noted/marked.All systems reviewed and otherwise negative Nurses note and vital signs reviewed and patient is not hypoxic. General: The patient appears well and in no apparent distress. Patient is resting comfortably on cart. Skin: Warm, dry, no pallor noted. There is no rash noted. Head: Normocephalic, atraumatic Eye: Normal conjunctiva, no drainage, EOMI. PERRL Ears, Nose, Mouth, and Throat: oral mucosa is moist. Nares patent. Mouth without vesicles. Ear canals patent. Tm's without Erythema Cardiovascular: Regular Rate and Rhythm Respiratory: Patient is in no distress, no accessory muscle use, lungs are clear to auscultation, no wheezing, rales or rhonchi Back: non-tender, no CVA tenderness bilaterally to percussion. GI: Normal bowel sounds, no tenderness to palpation, no masses appreciated. No rebound, guarding, or rigidity noted. Musculoskeletal: The patient has no evidence of calf tenderness, no pitting edema, symmetrical pulses noted bilaterally Neurological: A&O x4, normal speech Psychiatric: Cooperative Constitutional Vital Signs, click to edit/add: Last Vital Signs Temp 96 F L 02/15/25 18:51 Pulse 96 H 02/15/25 18:51 Resp 18 02/15/25 18:51 BP 110/75 02/15/25 18:51 Pulse Ox 95 02/15/25 18:51 O2 Del Method Room Air 02/15/25 18:51 Course Vital Signs Vital signs: Vital Signs Temperature 96 F L 02/15/25 18:51 Pulse Rate 96 H 02/15/25 18:51 Respiratory Rate 18 02/15/25 18:51 Blood Pressure 110/75 02/15/25 18:51 Pulse Oximetry 95 02/15/25 18:51 Oxygen Delivery Method Room Air 02/15/25 18:51 Temperature 96 F L 02/15/25 18:51 Pulse Rate 96 H 02/15/25 18:51 Respiratory Rate 18 02/15/25 18:51 Blood Pressure 110/75 02/15/25 18:51 Pulse Oximetry 95 02/15/25 18:51 Oxygen Delivery Method Room Air 02/15/25 18:51 MDM - Female Genitourinary MDM Narrative Medical decision making narrative: 39-year-old female presents here with a chief complaint of a 3 to 4-day history of right lower quadrant abdominal pain. Patient has a known history of ovarian cyst and states the pain is similar. Patient denies any fever chills nausea or vomiting. She denies any urinary symptoms including dysuria or vaginal discharge. She states she is not sexually active. Vital signs are stable. Patient presented here chief complaint of right lower quadrant pain consistent ovarian cyst ultrasound confirms right ovarian cyst. She also has a nabothian cyst versus fibroid. She states she sees an [facility] CLEANER in [place]. She will follow-up with them. She had no questions at discharge. Patient is able to be discharged to home at this time. Differential Diagnosis Differential diagnosis: Likely urinary tract infection and ovarian cyst Medical Records Attestation: I reviewed the patient's medical records. Lab Data Attestation: I reviewed the patient's lab results. Imaging Data US - abdomen: Radiologist's impression: ITS Impressions Transvaginal US 02/15/25 18:59 IMPRESSION: Anteverted uterus. Suspected fibroid versus complex nabothian cyst in the cervical region. IUD present within the endometrial cavity. Color-flow right ovary. 3.3 cm complex septated cystic lesion of the right ovary. Similar findings to examination 10/05/2024. Nonvisualization of left ovary. Impression dictated by: Kevin Jones M.D. 02/15/2025 8:57 PM Dictation Location: [employer] Electronically authenticated by: [id number] Y Date: 02/15/2025 20:57 Discharge Plan Discharge Chief Complaint: Urogenital-Female Clinical Impression: Ovarian cyst Patient Disposition: Home, Self-Care Time of Disposition Decision: 21:01 Condition: Good Prescriptions / Home Meds: No Action rizatriptan 10 mg tablet,disintegrating 10 mg PO Q2H PRN (Reason: migraine headache) hydrochlorothiazide 12.5 mg tablet 12.5 mg PO QDAY metformin 500 mg tablet Trulicity 1.5 mg/0.5 mL pen injector 1.5 mg subcut QWEEK ropinirole tablet aripiprazole 10 mg tablet 15 mg PO DAILY Patient Comments: HS buspirone 15 mg tablet 15 mg PO BID cetirizine 10 mg tablet 10 mg PO DAILY duloxetine 60 mg capsule,delayed release(DR/EC) 60 mg PO DAILY famotidine 20 mg tablet 20 mg PO Q12H PRN (Reason: GI) lamotrigine 100 mg tablet 100 mg PO DAILY montelukast 10 mg tablet 10 mg PO DAILY omeprazole 40 mg capsule,delayed release(DR/EC) 40 mg PO DAILY pantoprazole 40 mg tablet,delayed release (DR/EC) 40 mg PO DAILY propranolol 60 mg tablet 60 mg PO Q12H Print Language: Hungarian Instructions: Ovarian Cyst (ED) Referrals: Lisa Roberts NP [Primary Care Provider] - 1 week
[2025-02-15 21:23] VITALS: BP 135/99; PULSE 79; TEMP 36.8; O2SAT 98
--- NOTE | 2025-02-15 21:27 | PC.NURSE ---
i gave this patient verbal and written discharge orders along with 1 Rx and this patient voices yes to understanding these. at time of discharge this patient voices no concerns or needs and this patient shows no signs of distress
== END 2025-02-15 21:26 | disposition home or self-care (01) ==
PROVIDERS: Emergency Provider Emergency Medicine; PCP Nurse Practitioner Family
DX: N83.291 Other ovarian cyst, right side (principal); Z90.49 Acquired absence of other specified parts of digestive tract; Z90.81 Acquired absence of spleen; Z98.84 Bariatric surgery status; Z87.891 Personal history of nicotine dependence
CPT/HCPCS: 76830; 81001; 84703; 96372; 99285; J1885

== ENCOUNTER 2025-03-03 12:16 | Emergency (ER) | payer MEDICAID, SELFPAY ==
--- OUTSIDE RECORDS SUMMARY | 2007-12-20 10:53 | XMS_ITS | Continuity of Care Document ---
Author Organization [facility] Address [address] [place] [address] Phone Care Team Providers Care Insurance Adjustor Name Role Phone Oh Perkins MD Unavailable Unavailable Procedures Procedure Date Offic/outpt E&m Estab Minor 10 08 Colposcopy; W/bx-cerv &/or End 08 Urin Pg Test Visual Color Comp 08 Pp Care Only (separt Proc) Medroxypro [id number] Injection Advance Directives Directive Yes / No Effective Date File Name No Information Encounters Encounter Description Practice Location Reason(s) For Visit Diagnoses Date Provider Providers Copied on Encounter Offic/outpt E&m Estab Minor 10 [facility], [address], [place], [place], [id number], [place] tel:[phone] [facility] No Information 8 Maddie Casiano. [address] [place], [place], [id number] , [place]. tel: [phone] [facility], [address], [place], [place], [id number], [place] tel:[phone] [facility] No Information 8 Maddie Casiano. [address] [place], [place], [id number] , [place]. tel: [phone] [facility], [address], [place], [place], [id number], [place] tel:[phone] [facility] No Information 8 Maddie Casiano. [address] [facility], [place], [place], [id number] , . tel: [phone] Family History Family Member Type Diagnosis Age At Onset No Information Payers Payer name Insurance type Covered alliance party ID Authorkristel watkins(s) Mikey [id number] Social History Type Description Quantity Date Captured Comments Sex Female Smoking Status No Information Chief Complaint And Reason For Visit No Information Reason For Referral Reason For Referral No Information History Of Present Illness Encounter Date Complaint History Of Prese nt Illness No Information Functional Status Date Functional Assessmen t No Information Instructions Date Instruction Additional Infor mation No Information Assessments Type Assessment Date No Information Patient Care Teams Name Effective Dates (start - stop) Status Members No Information
--- OUTSIDE RECORDS SUMMARY | 2015-11-30 11:00 | XMS_ITS | Continuity of Care Document ---
Author Organization [facility] Address [address] [place] [address] [place] [address] Phone Care Team Providers Care Contact Centre Supervisor Name Role Phone Kulwinder Soria MD Unavailable Unavailable Procedures Procedure Date OFFICE/OUTPATIENT VISIT, [facility] OFFICE CONSULTATION Advance Directives Directive Yes / No Effective Date File Name No Information Encounters Encounter Description Practice Location Reason(s) For Visit Diagnoses Date Provider Providers Copied on Encounter OFFICE/OUTPATI ENT VISIT, [facility], [address] [place] [address], [id number], tel:[phone] [facility] No Information Estella Miramontes. [address] [place] [address], [id number], [place]. tel:[phone] Referring Provider: Kulwinder Kelly, [address] [place] [address], [address]. tel:[phone] OFFICE CONSULTATION [facility], [address] [place] [address], [id number], tel:[phone] [facility] No Information Estella Miramontes. [address] [place] [address], [id number], [place]. tel:[phone] Referring Provider: Kulwinder Kelly, [address] [place] [address], [address]. tel:[phone] Family History Family Member Type Diagnosis Age At Onset No Information Payers Payer name Insurance type Covered republican ID Authoriza tijoie(s) [facility] [id number] Social History Type Description Quantity Date Captured [...]
--- OUTSIDE RECORDS SUMMARY | 2025-02-09 09:00 | XMS_ITS ---
Author Organization [facility] vices Address [address] [place] [id number] Care Team Providers Care Cardroom Plastic Card Grader Name Role Phone Debbie Waqas Primary Care Provider [phone] REASON FOR VISIT DM Social History Sex Assigned At : Social History Observation Description Sex Assigned At Female Encounters Encounter Location Date Provider Diagnosis Main [address] [place] [id number] 02/09/2025 Waqas Lewis Plan Of Treatment Next Appt Details Provider Name:Waqas Lewis, 04/03/2025 01:30:00 PM, [address] [place], [id number], Progress Notes * Anabell JACKSONica ADOB: (39 yo F)Acc No.[id number]:02/09/2025 Medical Note Patient: Susi LIVINGSTON Provider: Stephanie Lewis :1985 A ge:39 Y S ex:Female Date:02/09/2025 Address:[address], [id number] Subjective: * Chief Complaints: * 1 . DM. * Medical History: Objective: * Vitals: Assessment: Plan: * Treatment: * Billing Information: * Visit Code: * Procedure Codes: * Electronic signature of MICHELLE Ventura on 03/03/2025 at 12:21 PM EDT Sign off status: Pending * Provider: Stephanie Lewis Date: 02/09/2025 Generated for Omayra moore/Beatrice/Barryitting on: 0 03/03/2025 12:21 PM EDT
--- OUTSIDE RECORDS SUMMARY | 2025-02-28 08:45 | XMS_ITS ---
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 Role Phone Waqas Lewis Primary Care Provider REASON FOR VISIT Handicap Placard Renewal Social History Sex Assigned At : Social History Observation Description Sex Assigned At Female Encounters Encounter Location Date Provider Diagnosis Main [address] [place], [place] [id number] 02/28/2025 Waqas Lewis Plan Of Treatment Next Appt Details Provider Name:Waqas Lewis, 04/03/2025 01:30:00 PM, [address] [place], [place], [id number], Progress Notes * Susi JACKSON ADOB: (39 yo F)Acc No.[id number]:02/28/2025 Medical Note Patient: Susi LIVINGSTON Provider: Stephanie Lewis :1985 A ge:39 Y S ex:Female Date:02/28/2025 Address:[address], [id number] Subjective: * Chief Complaints: * 1 . Handicap Placard Renewal. * Medical History: Objective: * Vitals: Assessment: Plan: * Treatment: * Billing Information: * Visit Code: * Procedure Codes: * Electronic signature of MICHELLE Ventura on 03/03/2025 at 12:20 PM EDT Sign off status: Pending * Provider: Stephanie Lewis Date: 0 02/28/2025 Generated for Omayra moore/Beatrice/Beltran on: 0 03/03/2025 12:20 PM EDT
--- OUTSIDE RECORDS SUMMARY | 2025-03-02 09:45 | XMS_ITS ---
Author Organization [facility] vices Address [address] [place], [place] [id number] Care Team Providers Care Transmission Superintendent Name Role Phone Waqas Lewis Primary Care Provider [phone] Allergies Allergen (clinical drug ingredient) Drug/Non Drug Allergy documented on EMR Reaction Allergy Type Onset Date Status amoxicillin / clavulanate Augmentin Nausea , Diarrhea , Abdominal pain Drug Allergy Active Keflex Itching , Dizziness Drug Allergy Active penicillin G Penicillin G Potassium Rash , Itching , Hives Drug Allergy Active tramadol Ultram Itching Drug Allergy Active Adhesive Rash Comments: skin peeling. Allergy Active REASON FOR VISIT handicap placard Medications Medication SIG (Take, Route, Frequency, Duration) Notes Start Date End Date Status rOPINIRole HCl 1 MG 1 tablet 1 to 3 hours before bedtime Orally Once a day; Duration: 30 day(s) 01/30/2025 Active Diclofenac Sodium 75 MG 1 tablet as need ed Orally Twice a day; Duration: 30 days Active metFORMIN HCl 500 mg TAKE 1 TABLET BY MOUTH TWICE DAILY WITH A MEAL; Duration: 90 days Active hydrOXYzine Pamoate 50 mg 1 capsule as needed for anxiety or sleep oral Twice a day; Duration: 90 days As needed Active Omeprazole 40 MG 1 capsule 30 minutes before morning meal Orally Once a day; Duration: 90 days Active Famotidine 20 MG 1 tablet at bedtime as needed Orally Once a day; Duration: 90 days 08/07/2021 Active hydroCHLOROthiazide 12.5 MG 1 tablet in the morning Orally Once a day; Duration: 90 days Active Montelukast Sodium 10 MG 1 tablet Orally Once a day; Duration: 90 days Active ARIPiprazole 20 MG 1 tablet Orally bed time; Duration: 90 days Active DULoxetine HCl 60 mg 1 capsulee oral every morning; Duration: 90 days Active lamoTRIgine 100 MG 1 tablet oral morning; Duration: 90 days Active traZODone HCl 50 MG 1 tablet at bedtime as needed Orally Once a day; Duration: 90 days As needed Active Prazosin HCl 5 mg TAKE 1 CAPSULE BY MOUTH AT BEDTIME Oral Once a day; Duration: 90 days Active Methocarbamol 750 MG 1 tablet Orally every 4 hrs; Duration: 7 days Active Propranolol HCl 60 MG 1 tablet Orally Twice a day; Duration: 90 days Active Cetirizine HCl 10 mg TAKE 1 TABLET BY MOUTH ONCE DAILY; Duration: 90 Active Rizatriptan Benzoate 10 MG Dissolve 1 tablet (10 mg) by mouth 1 (one) time if needed for migraine; May repeat in 2 hours if unresolved. Do not exceed 30 mg in 24 hours. Oral; Duration: 5 Days Active busPIRone HCl 30 MG 1 tablet oral twice a day; Duration: 90 days 03/29/24. Active Multivitamin - 1 tablet Orally Once a day Active Calcium Citrate-Vitamin D3 315-6.25 MG-MCG 1 tablet Orally Three times a day 2500 daily Active OXcarbazepine 300 MG TAKE 1 TABLET BY MOUTH AT BEDTIME FOR 7 DAYS, then go to TWICE DAILY thereafter Oral; Duration: 18 Days Active Glucometer *whatever brand is covered by insurance 01/09/2025 Active Blood Glucose Test - check blood sugar once a day; Duration: 100 days *whatever brand is covered by insurance 01/09/2025 Active Varenicline Tartrate(Continue) 1 MG 1 tablet after eating Orally Twice a day; Duration: 30 days 01/09/2025 Active Lancets - check blood sugar once a day; Duration: 100 days *whatever brand is covered by insurance 01/09/2025 Active Trulicity 3 MG/0.5ML as directed Subcutaneous weekly; Duration: 28 days increased dose from 1.5mg Active Vitamin D 50 MCG (1999) 1 tablet Orally Once a day Active Zinc 50 MG 1 tablet Orally Once a day Active Social History Sex Assigned At : Social History Observation Description Sex Assigned At Female Vital Signs Temperature 97.1 degrees Fahrenheit 03/02/20 25 Weight 411.2 lbs 03/02/2025 Height 64.002 in 03/02/2025 BMI 70.57 kg/m2 03/02/2025 Blood pressure systolic 141 mm Hg 03/02/20 25 Blood pressure diastolic 98 mm Hg 025 Heart Rate 86 /min 03/02/2025 Respiratory Rate 18 /min 03/02/2025 Oximetry 97 % 03/02/2025 Weight-kg 186.52 kg 03/02/2025 Height-cm 162.57 cm 03/02/2025 left knee. Miguelina Butler 0 03/02/2025 01:43:06 PM EDT > Encounters Encounter Location Date Provider Diagnosis Main [address] [place] , [place] [id number] 03/02/2025 Waqas Lewis Degeneration of intervertebral disc of lumbosacral region with discogenic back pain and lower extremity pain M51.372 and Type 2 diabetes mellitus with hyperglycemia, without long-term current use of insulin E11.65 Assessments Encounter Date Diagnosis (ICD Code) Assessment Notes Treatment Notes Treatment Clinical Notes Section Notes 03/02/2025 Degeneration of intervertebral disc of lumbosacral region with discogenic back pain and lower extremity pain (ICD-10 - M51.372) handicap placard ordered will complete MRI that is ordered as her scheudle alloows 03/02/2025 Type 2 diabetes mellitus with hyperglycemia, without long-term current use of insulin (ICD-10 - E11.65) pt christian sappt diagnosis for refill/increa se of trulciity Plan Of Treatment Medication Medication Name Sig Start Date Stop Date Notes Trulicity 3 MG/0.5ML as directed Subcuta neous weekly; Duration: 28 days Treatment Notes Assessment Notes Degeneration of intervertebr al disc of lumbosacral region with discogenic back pain and lower extremity pain handicap placard ordered will complete MRI that is ordered as her scheudle alloows Type 2 diabetes mellitus wit h hyperglycemia, without long-term current use of insulin pt christian sappt diagnosis for refill/increase of trulciity Next Appt Details Follow Up: prn, Reason: Provider Name:Waqas Lewis, 04/03/2025 01:30:00 PM, [address], [place], [id number], Progress Notes * Susi JACKOSN ADOB: (39 yo F)Acc No.[id number]:03/02/2025 Medical Note Patient: Susi LIVINGSTON Provider: Stephanie Lewis :1985 A ge:39 Y S ex:Female Date:03/02/2025 Address:[facility] [address] [place], [id number] Subjective: * Chief Complaints: * H andicap placard * HPI: I nterim History: pt presents for her degentrtaive disc disease she has not gotten her MRI doen for this reportst that it is wrosening in pain some days are better than others requests her handicap placard be renewed as she can not walk long distances due to the pain. Stacy banks: also requests refill of her trulcity has tolerated it well has appt scheduled for DM in one month currently on the 1.5mg weekly requests to increase to 3.0mg. * ROS: P ositive and negative as described above in the HPI. * Medical History: * Surgical History: L ap Cholecystectomy [id number] carpal tunnel release 6521-85-11Ukqioj Tunnel Surgery - Left [id number] discectomy: L4 and L5.L5 and S1 done in 20130126-95-18Sjiohzzcqmcij 1400-94-20Izcdnegyvje 2730-80-38Rjvzwnx sleeve 2016-06-29R Ovarian cyst removal 2020scar tissue removed 3duodenal switch 08/04/2023ulnar surgery bilateral 11/2023ovarian cyst drainage 09/02/24 * Hospitalization/Major Diagno stic Procedure: g astric sleeve 06/2016doudenal switch 07/2023 * Family History: F ather: , lymphoma, diagnosed with Cancer, Diabetes. M other: alive, COPD, hypothyroidism. P aternal Grand Father: , cerebrovascular accident / stroke. P aternal Grand Mother: alive, hypothyroidism, diagnosed with Diabetes. M aternal Grand Father: alive. M aternal Grand Mother: alive, COPD, congestive heart failure, hypothyroidism. S ister: alive, hyperthyroidism, diagnosed with Cancer. 1 sister(s) . . * Medications: T akingVarenicline Tartrate(Continue) 1 MG Tablet 1 tablet after eating Orally Twice a day Lancets - Miscellaneous check blood sugar once a day , Notes to Pharmacist: *whatever brand is covered by insuranceVitamin D 50 MCG (2000 UT) Tablet 1 tablet Orally Once a day Zinc 50 MG Tablet 1 tablet Orally Once a day Glucometer , Notes to Pharmacist: *whatever brand is covered by insuranceBlood Glucose Test - Strip check blood sugar once a day , Notes to Pharmacist: *whatever brand is covered by insuranceMultivitamin - Tablet 1 tablet Orally Once a day Calcium Citrate- Vitamin D3 315-6.25 MG-MCG Tablet 1 tablet Orally Three times a day , Notes to Pharmacist: 2500 dailyOXcarbazepine 300 MG Tablet TAKE 1 TABLET BY MOUTH AT BEDTIME FOR 7 DAYS, then go to TWICE DAILY thereafter Oral Rizatriptan Benzoate 10 MG Tablet Disintegrating Dissolve 1 tablet (10 mg) by mouth 1 (one) time if needed for migraine; May repeat in 2 hours if unresolved. Do not exceed 30 mg in 24 hours. Oral Methocarbamol 750 MG Tablet 1 tablet Orally every 4 hrs Propranolol HCl 60 MG Tablet 1 tablet Orally Twice a day Cetirizine HCl 10 mg Tablet TAKE 1 TABLET BY MOUTH ONCE DAILY busPIRone HCl 30 MG Tablet 1 tablet oral twice a day 03/29/24.lamoTRIgine 100 MG Tablet 1 tablet oral morning traZODone HCl 50 MG Tablet 1 tablet at bedtime as needed Orally Once a day As neededPrazosin HCl 5 mg Capsule TAKE 1 CAPSULE BY MOUTH AT BEDTIME Oral Once a day ARIPiprazole 20 MG Tablet 1 tablet Orally bed time DULoxetine HCl 60 mg Capsule Delayed Release Particles 1 capsulee oral every morning hydroCHLOROthiazide 12.5 MG Tablet 1 tablet in the morning Orally Once a day Montelukast Sodium 10 MG Tablet 1 tablet Orally Once a day Omeprazole 40 MG Capsule Delayed Release 1 capsule 30 minutes before morning meal Orally Once a day Famotidine 20 MG Tablet 1 tablet at bedtime as needed Orally Once a day hydrOXYzine Pamoate 50 mg Capsule 1 capsule as needed for anxiety or sleep oral Twice a day As neededTrulicity 1.5 MG/0.5ML Solution Auto-injector as directed Subcutaneous weekly rOPINIRole HCl 1 MG Tablet 1 tablet 1 to 3 hours before bedtime Orally Once a day Diclofenac Sodium 75 MG Tablet Delayed Release 1 tablet as needed Orally Twice a day metFORMIN HCl 500 mg Tablet TAKE 1 TABLET BY MOUTH TWICE DAILY WITH A MEAL Taking Varenicline Tartrate(Continue) 1 MG Tablet 1 tablet after eating Orally Twice a day Taking Lancets - Miscellaneous check blood sugar once a day , Notes to Pharmacist: *whatever brand is covered by insuranceTaking Vitamin D 50 MCG (2000 UT) Tablet 1 tablet Orally Once a day Taking Zinc 50 MG Tablet 1 tablet Orally Once a day Taking Glucometer , Notes to Pharmacist: *whatever brand is covered by insuranceTaking Blood Glucose Test - Strip check blood sugar once a day , Notes to Pharmacist: *whatever brand is covered by insuranceTaking Multivitamin - Tablet 1 tablet Orally Once a day Taking Calcium Citrate-Vitamin D3 315-6.25 MG-MCG Tablet 1 tablet Orally Three times a day , Notes to Pharmacist: 2500 dailyTaking OXcarbazepine 300 MG Tablet TAKE 1 TABLET BY MOUTH AT BEDTIME FOR 7 DAYS, then go to TWICE DAILY thereafter Oral Taking Rizatriptan Benzoate 10 MG Tablet Disintegrating Dissolve 1 tablet (10 mg) by mouth 1 (one) time if needed for migraine; May repeat in 2 hours if unresolved. Do not exceed 30 mg in 24 hours. Oral Taking Methocarbamol 750 MG Tablet 1 tablet Orally every 4 hrs Taking Propranolol HCl 60 MG Tablet 1 tablet Orally Twice a day Taking Cetirizine HCl 10 mg Tablet TAKE 1 TABLET BY MOUTH ONCE DAILY Taking busPIRone HCl 30 MG Tablet 1 tablet oral twice a day 03/29/24.Taking lamoTRIgine 100 MG Tablet 1 tablet oral morning Taking traZODone HCl 50 MG Tablet 1 tablet at bedtime as needed Orally Once a day As neededTaking Prazosin HCl 5 mg Capsule TAKE 1 CAPSULE BY MOUTH AT BEDTIME Oral Once a day Taking ARIPiprazole 20 MG Tablet 1 tablet Orally bed time Taking DULoxetine HCl 60 mg Capsule Delayed Release Particles 1 capsulee oral every morning Taking hydroCHLOROthiazide 12.5 MG Tablet 1 tablet in the morning Orally Once a day Taking Montelukast Sodium 10 MG Tablet 1 tablet Orally Once a day Taking Omeprazole 40 MG Capsule Delayed Release 1 capsule 30 minutes before morning meal Orally Once a day Taking Famotidine 20 MG Tablet 1 tablet at bedtime as needed Orally Once a day Taking hydrOXYzine Pamoate 50 mg Capsule 1 capsule as needed for anxiety or sleep oral Twice a day As neededTaking Trulicity 1.5 MG/0.5ML Solution Auto-injector as directed Subcutaneous weekly Taking rOPINIRole HCl 1 MG Tablet 1 tablet 1 to 3 hours before bedtime Orally Once a day Taking Diclofenac Sodium 75 MG Tablet Delayed Release 1 tablet as needed Orally Twice a day Taking metFORMIN HCl 500 mg Tablet TAKE 1 TABLET BY MOUTH TWICE DAILY WITH A MEAL DiscontinuedTrulicity 0.75 MG/0.5ML Solution Auto-injector 0.75 mg Subcutaneous once a week Varenicline Tartrate (Starter) 0.5 MG X 11 & 1 MG X 42 Tablet Therapy Pack 0.5mg daily x 3 days, then 0.5 mg twice a day for 4 days, then 1 mg daily Orally daily Medication List reviewed and reconciled with the patientDiscontinued Trulicity 0.75 MG/0.5ML Solution Auto-injector 0.75 mg Subcutaneous once a week Discontinued Varenicline Tartrate (Starter) 0.5 MG X 11 & 1 MG X 42 Tablet Therapy Pack 0.5mg daily x 3 days, then 0.5 mg twice a day for 4 days, then 1 mg daily Orally daily Medication List reviewed and reconciled with the patient * Allergies: A ugmentin: Nausea , Diarrhea , Abdominal pain - AllergyKeflex: Itching , Dizziness - AllergyPenicillin G Potassium: Rash , Itching , Hives - AllergyUltram: Itching - AllergyAdhesive: Rash Comments: skin peeling. - Allergyno[Allergies Verified] Objective: * Vitals: T emp:97.1F, Wt:411.2lbs, Ht: 64.002 in, BMI:70.57Index, BP:141/98mm Hg, HR:86/min, RR:18/min, Pain scale:81-10, Oxygen sat %:97%, Wt-k.52 kg, Ht-cm: 162.57 cm, Body Surface Area: 2.9. left knee.Miguelina Butler 03/02/2025 01:43:06 PM EDT > . * Examination: C QM Exceptions: Currently taking Aspirin: A spirin Use: N o G eneral Examination: General appearance: D iaphoretic. Heart: r egular rate and rhythm without murmurs, gallops, clicks or rubs. Lungs: c lear to auscultation bilaterally, with good air movement and no rales, rhonchi or wheezes. Back: w ith lumbar spine tenderness, with thoracic spine tenderness. Psych: a lert and oriented x 3. Assessment: * Assessment: 1. D egeneration of intervertebral disc of lumbosacral region with discogenic back pain and lower extremity pain - M51.372 2 . T ype 2 diabetes mellitus with hyperglycemia, without long-term current use of insulin - E11.65 Plan: * Treatment: 2. T ype 2 diabetes mellitus with hyperglycemia, without long-term current use of insulin Refill Trulicity Solution Auto-injector, 3 MG/0.5ML, as directed Subcutaneous weekly increased dose from 1.5mg, 28 days, 2 Milliliter, Refills 0. Notes: pt christian sappt diagnosis for refill/increase of trulciity * Procedure Codes: 3 077F HTN SYST BP >= 1544340Y HTN DIAST BP >= 90 * Follow Up: p rn * Billing Information: * Visit Code: 42103 Office Visit Est 20-29 minutes. * Procedure Codes: 3077F HTN SYST BP >= 140. 3080F HTN DIAST BP >= 90. * Sign off status: Completed true * Provider: Stephanie Lewis Date: 0 03/02/2025 Generated for Omayra moore/Beatrice/Beltran on: 0 03/03/2025 12:21 PM EDT History and Physical Notes * HPI (History of Present Illness) Category Sub-Category Detail Notes Category Not es Diabetes also requests refill of her trulcity has tolerated it well has appt scheduled for DM in one month currently on the 1.5mg weekly requests to increase to 3.0mg Interim History pt presents for her degentrtaive disc disease she has not gotten her MRI doen for this reportst that it is wrosening in pain some days are better than others requests her handicap placard be renewed as she can not walk long distances due to the pain Examination Category Sub-Category Detail Notes Category Not es General Examination General appearance: Diaphoretic Heart: regular rate and rhy thm without murmurs, gallops, clicks or rubs Lungs: clear to auscultatio n bilaterally, with good air movement and no rales, rhonchi or wheezes Back: with lumbar spine te nderness, with thoracic spine tenderness Psych: alert and oriented x 3 CQM Exceptions Currently taking Aspirin: Aspirin Use:: No
--- OUTSIDE RECORDS SUMMARY | 2025-03-03 12:20 | XMS_ITS | Encounter Summary ---
Author Organization [facility] Address [address] [place] [address] Care Team Providers Care Senior System Operator Name Role Phone Elizabet Dodd DO Primary Care Provider [phone] Lolis Mejía RD Unavailable Unavailable Source Comments [...] Msg General Surgery BMI [address] [place] [address] Provider, Cccholo Tomorrow's visit- needs [...] is lower risk 4 01/15/2023 Data from: https://www.neighborhoodatlas.medicine.[facility]/. Last address used [...] of Assessment Author No 04/01/2023 3:56 PM LASHONDAT Susi Ruffin RN documented as of this encounter Mental Status * Because of a physical, mental, or emotional condition, do you have serious difficulty concentrating, remembering, or making decisions? Answer Entry Date Author No 04/01/2023 3:56 PM LASHONDAT Susi Ruffin RN documented in this encounter Plan of Treatment Upcoming Encounters Date Type Department Care Team (Latest Contact Info) Description 03/06/2025 3:00 PM EDT [facility] General Surgery BMI PSYL [address] [place] [address] Dinah Perez, PhD [address] [place] [address] 03/13/2025 3:00 PM EDT [facility] BMI PSYL [address] [place] [address] Dinah Perez, PhD [address] [place] [address] Emotional eating 03/20/2025 3:00 PM EDT [facility] BMI [address] [place], [place] [id number] Lolis Mejía RD [address] [place] [address] Protein and Fluids documented as of this encounter Visit Diagnoses Not on filedocumented in this encounter Care Teams Senior System Operator Relationship Specialty Start Date End Date Elizabet Dodd DO [address] [place] [address] PCP - General Family Medicine 04/16/22 Lolis Mejía RD [address] [place] [address] Nutrition 02/07/25 documented as of this encounter
--- OUTSIDE RECORDS SUMMARY | 2025-03-03 12:20 | XMS_ITS | Clinical Summary ---
Author Organization [facility] Address [address] [place] [address] Care Team Providers Care Garland Machine Operator Name Role Phone Elizabet Dodd DO Primary Care Provider [phone] Allergies Active Allergy Reactions Criticality Noted Date [...] COVID-19 VACCINE ( - 2023-2 5 season) 2025 INFLUENZA VACCINE (#1) 2025 PNEUMOCOCCAL VACCINE SERIES Aged Out No longer eligible based on patient's age to complete this topic Care Teams Garland Machine Operator Relationship Specialty Start Date End Date Elizabet Dodd DO PCP - General Family Medicine 03/21/21
--- OUTSIDE RECORDS SUMMARY | 2025-03-03 12:20 | XMS_ITS | Encounter Summary ---
Author Organization [facility] Address [address] [place] [address] Care Team Providers Care Slat Pickler Name Role Phone LucasGeneva whitaker Viviane ALANIZ Primary Care Provider [phone] Elizabet Dodd DO Primary Care Provider [phone] Lolis Mejía RD Unavailable Unavailable Source Comments In the event this information is protected by the Federal Confidentiality of Alcohol and Drug AbusePatient Records regulations: The Federal rules restrict any use of the information to criminally investigate or prosecute any alcohol or drug abuse patient.[facility] Encounter Details Date Type Department Care Team (Late st Contact Info) Description 01/20/2022 Patient Msg Colorectal Surgery [address] [place] [address] Provider, Ccf Ct Scan and [...] on file 12/05/2021 Data from: https://www.neighborhoodatlas.medicine.[facility]/. Last address used for calculation [address] 12/05/2021 Comments No Sex and Gender [...] Contact Info) Description 03/06/2025 3:00 PM EDT [facility] Surgery BMI PSYL [address] [place] [address] Dinah Perez, PhD [address] [place] [address] 03/13/2025 3:00 PM EDT [facility] BMI PSYL [address] [place] [address] Dinah Perez, PhD [address] [place] [address] Emotional eating 03/20/2025 3:00 PM EDT [facility] BMI [address] [place] [address] Lolis Mejía RD [address] [place] [address] Protein and Fluids documented as of this encounter Visit Diagnoses Not on filedocumented in this encounter Care Teams Slat Pickler Relationship Specialty Start Date End Date Geneva Estrada, DIETETIC AIDE [address] [place] [address] PCP - General Family Medicine 10/01/11 04/15/22 Elizabet Dodd DO [address] [place] [address] PCP - General Family Medicine 04/16/22 Lolis Mejía RD [address] [place] [address] Nutrition 02/07/25 documented as of this encounter
--- OUTSIDE RECORDS SUMMARY | 2025-03-03 12:20 | XMS_ITS | Clinical Summary ---
Author Organization [facility] Address [address] [place] [address] Phone Care Team Providers Care Residential Mortgage Manager Name Role Phone Prince Horvath MD Primary Care Provider [phone] Social History Tobacco Use Types Packs/Day Years [...] of Treatment Not on file Care Teams Residential Mortgage Manager Relationship Specialty Start Date End Date Prince Horvath MD [address] [place], [address] [address] PCP - General 09/30/21
--- OUTSIDE RECORDS SUMMARY | 2025-03-03 12:20 | XMS_ITS | Encounter Summary ---
Author Organization [facility] Address [address] [place] [address] Care Team Providers Care Real Estate Underwriter Name Role Phone Elizabet Dodd DO Primary Care Provider [phone] Lolis Mejía RD Unavailable Unavailable Source Comments In the event this information is protected by the Federal Confidentiality of Alcohol and Drug AbusePatient Records regulations: The Federal rules restrict any use of the information to criminally investigate or prosecute any alcohol or drug abuse patient.[facility] Encounter Details Date Type Department Care Team (Late st Contact Info) Description 12/15/2022 Patient Msg General Surgery [address] [place] [address] Provider, [facility]cf Nutrition Summary Social [...] is lower risk 4 12/15/2022 Data from: https://www.neighborhoodatlas.medicine.[facility]/. Last address used for calculation [address] [...] [facility] General Surgery BMI PSYL [address] [place] [address] Dinah Perez, PhD [address] [place] [address] 03/13/2025 3:00 PM EDT [facility] General Surgery BMI [address]YL [address] [place] [place] [address] Dinah Perez, PhD [address] [place] [address] Emotional eating 03/20/2025 3:00 PM EDT [facility] Surgery BMI [address] [place] [address] Lolis Mejía RD [address] [place] [address] Protein and Fluids documented as of this encounter Visit Diagnoses Not on filedocumented in this encounter Care Teams Real Estate Underwriter Relationship Specialty Start Date End Date Elizabet Dodd DO [address] [place] [address] PCP - General Family Medicine 04/16/22 Lolis Mejía RD [address] [place] [address] Nutrition 02/07/25 documented as of this encounter
--- OUTSIDE RECORDS SUMMARY | 2025-03-03 12:20 | XMS_ITS | Encounter Summary ---
Author Organization [facility] Address [address] [place] [address] Care Team Providers Care Revenue Accounting Manager Name Role Phone LucasGeneva whitaker Viviane ALANIZ Primary Care Provider [phone] Elizabet Dodd DO Primary Care Provider [phone] Lolis Mejía RD Unavailable Unavailable Source Comments In the event this information is protected by the Federal Confidentiality of Alcohol and Drug AbusePatient Records regulations: The Federal rules restrict any use of the information to criminally investigate or prosecute any alcohol or drug abuse patient.[facility] Encounter Details Date Type Department Care Team (Late st Contact Info) Description 12/17/2021 GI Preprocedure Call [facility] Surgery [address] [place], [place] [id number] [place] [address] [place] [address] Social History Tobacco Use Types [...] N ot on file 12/05/2021 Data from: https://www.neighborhoodatlas.medicine.[facility]/. Last address used for calculation [address] 12/05/2021 Comments No Sex and Gender [...] Author No 10/09/2015 10:58 AM EDT Ken Boswell, SUSAN documented in this encounter Plan of Treatment Upcoming Encounters Date Type Department Care Team (Latest Contact Info) Description 03/06/2025 3:00 PM EDT [facility] BMI PSYL [address] [place] [address] Dinah Perez, PhD [address] [place] [address] 03/13/2025 3:00 PM EDT [facility] BMI PSYL [address] [place] [address] Dinah Perez, PhD [address] [place] [address] Emotional eating 03/20/2025 3:00 PM EDT [facility] BMI [address] [place] [address] Lolis Mejaí RD [address] [place] [address] Protein and Fluids documented as of this encounter Visit Diagnoses Not on filedocumented in this encounter Care Teams Revenue Accounting Manager Relationship Specialty Start Date End Date Geneva Estrada, STRIPE MATCHER [address] [place] [address] PCP - General Family Medicine 10/01/11 04/15/22 Elizabet Dodd DO [address] [place] [address] PCP - General Family Medicine 04/16/22 Lolis Mejía RD [address] [place] [address] Nutrition 02/07/25 documented as of this encounter
--- OUTSIDE RECORDS SUMMARY | 2025-03-03 12:20 | XMS_ITS | Encounter Summary ---
Author Organization [facility] Address [address] [place] [address] Care Team Providers Care Chief Digital Officer Name Role Phone Elizabet Dodd DO Primary Care Provider [phone] Lolis Mejía RD Unavailable Unavailable Source Comments In the event this information is protected by the Federal Confidentiality of Alcohol and Drug AbusePatient Records regulations: The Federal rules restrict any use of the information to criminally investigate or prosecute any alcohol or drug abuse patient.[facility] Encounter Details Date Type Department Care Team (Late st Contact Info) Description 06/04/2022 Patient Msg General Surgery [address] [place] [address] Flory Sosa LPN [address] [place] [address] orders mailed Social History Tobacco [...] N ot on file 12/05/2021 Data from: https://www.neighborhoodatlas.medicine.[facility]/. Last address used for calculation [address] 12/05/2021 Comments No Sex and Gender [...] Contact Info) Description 03/06/2025 3:00 PM EDT [facility] General Surgery BMI PSYL [address] [place], [place] [address] Dinah Perez, PhD [address] [place] [address] 03/13/2025 3:00 PM EDT [facility] BMI PSYL [address] [place] [address] Dinah Perez, PhD [address] [place] [address] Emotional eating 03/20/2025 3:00 PM EDT [facility] BMI [address] [place], [place] [address] Lolis Mejía RD [address] [place] [address] Protein and Fluids documented as of this encounter Visit Diagnoses Not on filedocumented in this encounter Care Teams Chief Digital Officer Relationship Specialty Start Date End Date Elizabet Dodd DO [address] [place] [address] PCP - General Family Medicine 04/16/22 Lolis Mejía RD [address] [place] [address] Nutrition 02/07/25 documented as of this encounter
--- OUTSIDE RECORDS SUMMARY | 2025-03-03 12:20 | XMS_ITS | Encounter Summary ---
Author Organization [facility] Address [address] [place] [address] Care Team Providers Care Casino Investigator Name Role Phone Elizabet Dodd DO Primary Care Provider [phone] Artur Hernandez MD Unavailable [phone] Shaylee Kendall Unavailable Unavailable Mariia Quinteros Unavailable Encounter Details Date Type Department Care Team (Late st Contact Info) Description 09/14/2023 Clinisync Result Encounter [facility] External Department Unsolicited Kiko Harley DO [address] [place] [address] Social History Tobacco Use Types Packs/Day Years Used Date Smoking Tobacco: Former Cigarettes Q uit: 2013 Alcohol Use Standard Drinks/Week Comments Never 0 (1 standard drink = 0.6 oz pur e alcohol) caffeine: 2-3 cups per day Comments Unknown Sex and Gender Information Value Date Recorded Sex Assigned at Not on file Legal Sex Female 6:54 PM EDT Gender Identity Not on file Sexual Orientation Not on file documented as of this encounter Plan of Treatment Upcoming Encounters Date Type Department Care Team (Late st Contact Info) Description 03/13/2025 1:30 PM EDT Office Visit [facility] [address] [place] [address] Juan Villar, BETY [address] [place], [place] [id number] documented as of this encounter Procedures Procedure Name Priority Date/Time Associated Diagnosis Comments US PELVIS TRANSVAGINAL 09/14/2023 1:45 PM EDT documented in this encounter Results * US PELVIS TRANSVAGINAL (09/14/2023 1:45 PM EDT) Anatomical Region Laterality Modality Other 09/14/2023 1:45 PM EDT Narrative 09/14/2023 1:48 [place] [address] Ultrasound Report Signed Patient: ANGELES JACKSON MR#: [id number] : 1985 Acct:[id number] Age/Sex: 38 / F ADM Date: 09/14/23 Loc: [facility] Attending Dr: Kiko Harley D.O. Ordering Physician: Kiko Harley D.O. Date of Service: 09/14/23 Procedure(s): US pelvis transvaginal Accession Number(s): [id number] cc: Kiko Harley D.O.; Physician,Non-Staff M.D. [place] [id number] Patient Name: ANGELES JACKSON MRN: [id number] date: 1985 Sex: F Assigned Patient Location: [facility] Current Patient Location: [facility] Accession/Order Number: [id number] Exam Date: 09/14/2023 13:02 Report Date: 09/14/2023 13:45 At the request of: KIKO HARLEY Procedure: US pelvis transvaginal EXAMINATION: US pelvis transvaginal HISTORY: PELVIC PAIN IUD POSITION COMPARISON: No relevant comparison available. FINDINGS: Transvaginal images, Limited exam due to patient body habitus The uterus is normal in size, contour and echotexture measuring 8.9 x 4.3 x 5.7 cm, anteverted, retroflexed The endometrium measures 8 mm, normal. Linear hyperechogenicity within the endometrial cavity consistent with positioned IUD The right ovary is normal measuring 5.2 x 2.6 x 3.4 cm. Normal color and Doppler flow. Multiple follicles The left ovary is not visualized US/US pelvis transvaginal IMPRESSION: Normally positioned IUD Electronically authenticated by: ESTELLA Rajan: 09/14/2023 13:45 Dictated By: Estella Whitehead M.D. Signed By: 09/14/23 1348 DD/ 1345 TD/TT: [employer]: Procedure Note Radiology, Radiologist, - 09/14/2023 [place] [address] Ultrasound Report Signed Patient: ANGELES JACKSON AMR#: [id number] : 1985Acct:[id number] Age/Sex: 38 / FADM Date: 09/14/23 Loc: [facility] Attending Dr: Kiko Harley D.O. Ordering Physician: Kiko Harley D.O. Date of Service: 09/14/23 Procedure(s): US pelvis transvaginal Accession Number(s): [id number] cc: Kiko Harley D.O.; Physician,Non-Staff [place] [facility] [place] [id number] Patient Name: ANGELES JACKSON MRN: [id number] date: 1985 Sex: F Assigned Patient Location: [facility] Current Patient Location: [facility] Accession/Order Number: [id number] Exam Date: 09/14/2023 13:02 Report Date: 09/14/2023 13:45 At the request of: KIKO HARLEY Procedure: US pelvis transvaginal EXAMINATION: US pelvis transvaginal HISTORY: PELVIC PAIN IUD POSITION COMPARISON: No relevant comparison available. FINDINGS: Transvaginal images, Limited exam due to patient body habitus The uterus is normal in size, contour and echotexture measuring 8.9 x 4.3x 5.7 cm, anteverted, retroflexed The endometrium measures 8 mm, normal. Linear hyperechogenicity within the endometrial cavity consistent with positioned IUD The right ovary is normal measuring 5.2 x 2.6 x 3.4 cm. Normal color and Doppler flow. Multiple follicles The left ovary is not visualized US/US pelvis transvaginal IMPRESSION: Normally positioned IUD Electronically authenticated by: ESTELLA WHITEHEAD Date: 09/14/2023 13:45 Dictated By: Estella Whitehead M.D. Signed By:09/14/23 1348 DD/ 1345 TD/TT: Tester Food [employer]: Kiko Cherri DO [facility] Final Result documented in this encounter Visit Diagnoses Not on filedocumented in this encounter Care Teams Casino Investigator Relationship Specialty Start Date End Date Elizabet Dodd DO [address] [place] [address] PCP - General Family Medicine 09/16/23 Artur Hernandez MD [address] [facility] [address] [place], [place] [id number] PCP - [facility] [place] ELECTRONEURODIAGNOSTIC TECHNOLOGIST 09/28/23 12/27/23 Shaylee Kendall PCP - [facility] [place] ELECTRONEURODIAGNOSTIC TECHNOLOGIST 12/28/23 Mariia Quinteros PA [address] [place] [address] Physician Program Therapist Neurology 09/14/24 documented as of this encounter
--- OUTSIDE RECORDS SUMMARY | 2025-03-03 12:20 | XMS_ITS | Encounter Summary ---
Author Organization [facility] Address [address] [place] [address] Care Team Providers Care Scraper Loader Operator Name Role Phone Elizabet Dodd DO Primary Care Provider [phone] Lolis Mejía RD Unavailable Unavailable Source Comments In the event this information is protected by the Federal Confidentiality of Alcohol and Drug AbusePatient Records regulations: The Federal rules restrict any use of the information to criminally investigate or prosecute any alcohol or drug abuse patient.[facility] Encounter Details Date Type Department Care Team (Late st Contact Info) Description 02/15/2025 Telephone Pre Anesthesia [address] [place] [address] [place] [address] [place] [address] Social History Tobacco Use Types Packs/Day Years Used Date Smoking Tobacco: Former Cigarettes 0.5 5 0 12/27/2008 - 12/27/2013 Smokeless Tobacco: Never Alcohol Use Standard Drinks/Week Comments Not Currently 0 (1 standard drink = 0.6 oz pur e alcohol) None since 2012 [facility] Utilities Answer Date Recorded In the past [...] Assessment Author No 08/11/2023 12:43 PM Kira Sacnhez RN documented as of this encounter Mental Status * Because of a physical, mental, or emotional condition, do you have serious difficulty concentrating, remembering, or making decisions? Answer Entry Date Author No 08/11/2023 12:43 PM Kira Sanchez RN documented in this encounter Miscellaneous Notes * Telephone Encounter - Elvira Stephens - 02/28/2025 4:53 PM EDT Patient has not yet rescheduled - phone mailbox is full - could not leave message * Telephone Encounter - Elvira Stephens - 02/16/2025 1:45 PM EDT Lmom to r/s procedure and PACC * Telephone Encounter - Elvira Stephens - 02/16/2025 1:43 PM EDT Patient electively canceled due to appointment conflict. * Telephone Encounter - Susan Pena - 02/15/2025 9:31 AM EDT February 15, 2025 We would like to relay to the office that we have attempted to reach Susi Jackson by [email or web address] and sent a Gripe[employer] message to assist in scheduling their PACC appt for upcoming procedure on 03/03/2025 with no success. Sincerely, PACC Scheduling Team [phone] Thursday - Thursday 8:00 AM - 5:00 PM documented in this encounter Plan of Treatment Upcoming Encounters Date Type Department Care Team (Latest Contact Info) Description 03/06/2025 3:00 PM EDT [facility] Surgery BMI PSYL [address] [place] [address] Dinah Perez, PhD [address] [place] [address] 03/13/2025 3:00 PM EDT [facility] BMI PSYL [address] [place] [address] Dinah Perez, PhD [address] [place] [address] Emotional eating 03/20/2025 3:00 PM EDT [facility] BMI [address] [place] [address] Lolis Mejía RD [address] [place] [address] Protein and Fluids documented as of this encounter Visit Diagnoses Not on filedocumented in this encounter Care Teams Scraper Loader Operator Relationship Specialty Start Date End Date Elizabet Dodd DO [address] [place] [address] PCP - General Family Medicine 04/16/22 Lolis Mejía RD [address] [place] [address] Nutrition 02/07/25 documented as of this encounter
--- OUTSIDE RECORDS SUMMARY | 2025-03-03 12:20 | XMS_ITS | Encounter Summary ---
Author Organization [facility] Address [address] [place] [address] Care Team Providers Care Telesales Supervisor Name Role Phone LucasGeneva whitaker Viviane ALANIZ Primary Care Provider [phone] Elizabet Dodd DO Primary Care Provider [phone] Lolis Mejía RD Unavailable Unavailable Source Comments In the event this information is protected by the Federal Confidentiality of Alcohol and Drug AbusePatient Records regulations: The Federal rules restrict any use of the information to criminally investigate or prosecute any alcohol or drug abuse patient.[facility] Encounter Details Date Type Department Care Team (Late st Contact Info) Description 11/29/2021 Patient Msg Procedures [address] [place] [address] Provider, [facility] EGD Instructions Social History Tobacco [...] N ot on file 2020 Data from: https://www.neighborhoodatlas.medicine.[facility].edu/. Last address used for calculation Not on [...] Contact Info) Description 03/06/2025 3:00 PM EDT [facility] General Surgery BMI PSYL [address] [place] [address] Dinah Perez, PhD [address] [place] [address] 03/13/2025 3:00 PM EDT [facility] BMI PSYL [address] [place] [address] Dinah Perez, PhD [address] [place] [address] Emotional eating 03/20/2025 3:00 PM EDT [facility] BMI [address] [place] [address] Lolis Mejía RD [address] [place] [address] Protein and Fluids documented as of this encounter Visit Diagnoses Not on filedocumented in this encounter Care Teams Telesales Supervisor Relationship Specialty Start Date End Date Geneva Estrada, COTTON BALER [facility] [place] [address] PCP - General Family Medicine 10/01/11 04/15/22 Elizabet Dodd DO [address] [place] [address] PCP - General Family Medicine 04/16/22 Lolis Mejía RD [address] [place] [address] Nutrition 02/07/25 documented as of this encounter
--- OUTSIDE RECORDS SUMMARY | 2025-03-03 12:20 | XMS_ITS | Encounter Summary ---
Author Organization [facility] Address [address] [place] [place] [address] Care Team Providers Care Ship Scraper Name Role Phone Elizabet Dodd DO Primary Care Provider [phone] Artur Hernandez MD Unavailable [phone] Shaylee Kendall Unavailable Unavailable Mariia Quinteros Unavailable Encounter Details Date Type Department Care Team (Late st Contact Info) Description 10/02/2023 Clinisync Result Encounter [facility] External Department Unsolicited Kiko Harley DO [address] [facility] [address] [place] [address] Social History Tobacco Use Types Packs/Day Years Used Date Smoking Tobacco: Former Cigarettes Q uit: 2013 Alcohol Use Standard Drinks/Week Comments Never 0 (1 standard drink = 0.6 oz pur e alcohol) caffeine: 2-3 cups per day Comments No Sex and Gender Information Value Date Recorded Sex Assigned at Not on file Legal Sex Female 6:54 PM EDT Gender Identity Not on file Sexual Orientation Not on file documented as of this encounter Plan of Treatment Upcoming Encounters Date Type Department Care Team (Late st Contact Info) Description 03/13/2025 1:30 PM EDT Office Visit [facility] [address] [place] [address] Juan Villar, BETY [address] [place], [place] [id number] documented as of this encounter Procedures Procedure Name Priority Date/Time Associated Diagnosis Comments ECG 12-LEAD 10/02/2023 9:26 AM EDT documented in this encounter Results * ECG 12-LEAD (10/02/2023 9:26 AM EDT) Anatomical Region Laterality Modality Other 10/02/2023 9:26 AM EDT Narrative 10/03/2023 8:22 AM EDT [facility] [place] [id number] Electrocardiograph Report Signed Patient: ANGELES JACKSON MR#: [id number] : 1985 Acct:[id number] Age/Sex: 38 / F ADM Date: 10/02/23 Loc: PST Attending Dr: Kiko Harley D.O. Ordering Physician: Kiko Harley D.O. Date of Service: 10/02/23 Procedure(s): ECG 12 lead Accession Number(s): [id number] cc: [facility] Test Date: 2023-10-02 Pat Name: ANGELES JACKSON Department: Room: - Gender: Female Fountain Pen Nibs Inspector: : 1985 Requested By: KIKO HARLEY Order Number: [id number] Reading MD: BEN NUGENT Measurements Intervals [place] Rate: 78 P: 38 GA: 171 QRS: 20 QRSD: 106 T: 15 QT: 362 QTc: 412 Interpretive Statements SINUS RHYTHM WITH SINUS ARRHYTHMIA Non-Specific T wave inversion in III LOW QRS VOLTAGE IN PRECORDIAL LEADS [QRS DEFLECTION < 1.0 mV IN CHEST LEADS] Compared to ECG 08/12/2022 14:37:17 No significant changes Electronically Signed On 10-03-2023 8:21:49 EDT by BEN NUGENT Dictated By: Ben Nugent M.D. Signed By: 10/03/23821 DD/ 5 TD/TT: Special Education Professional: Procedure Note Radiology, Radiologist, MD - 10/03/[address] [address] Electrocardiograph Report Signed Patient: ANGELES JACKSON AMR#: [id number] : 1985Acct:[id number] Age/Sex: 38 / FADM Date: 10/02/23 Loc: PST Attending Dr: Kiko Harley D.O. Ordering Physician: Kiko Harley D.O. Date of Service: 10/02/23 Procedure(s): ECG 12 lead Accession Number(s): [id number] cc: [facility] Test Date: 2023-10-02 Pat Name: ANGELES JACKSON Department: Room: - Gender: Female Fountain Pen Nibs Inspector: : 1985 Requested By: KIKO HARLEY Order Number: [id number] Reading MD: BEN NUGENT Measurements Intervals [place] Rate: 78 P: 38 GA: 171 QRS: 20 QRSD: 106 T: 15 QT: 362 QTc: 412 Interpretive Statements SINUS RHYTHM WITH SINUS ARRHYTHMIA Non-Specific T wave inversion in III LOW QRS VOLTAGE IN PRECORDIAL LEADS [QRS DEFLECTION < 1.0 mV IN CHESTLEADS] Compared to ECG 08/12/2022 14:37:17 No significant changes Electronically Signed On 10-03-2023 8:21:49 EDT by BEN NUGENT Dictated By: Ben Nugent M.D. Signed By:10/03/23821 DD/ 5 TD/TT: Special Education Professional: Kiko Harley DO [facility] Final Result documented in this encounter Visit Diagnoses Not on filedocumented in this encounter Care Teams Ship Scraper Relationship Specialty Start Date End Date Elizabet Dodd DO [address] [place] [address] PCP - General Family Medicine 09/16/23 Artur Hernandez MD [address] [facility] [address] [place] [address] PCP - [facility] [place] SOLE ROUGHER 09/28/23 12/27/23 Shaylee Kendall PCP - [facility] [place] SOLE ROUGHER 12/28/23 Mariia Quinteros PA [address] [place] [address] Physician Tracing Lathe Set Up Operator Neurology 09/14/24 documented as of this encounter
--- OUTSIDE RECORDS SUMMARY | 2025-03-03 12:20 | XMS_ITS | Clinical Summary ---
Author Organization [facility] Address [address] [place] [address] Care Team Providers Care Solar Installer Pv Name Role Phone JuElizabet Primary Care Provider [phone] Mejía RD Unavailable Unavailable Allergies Active Allergy Reactions Criticality Noted Date Comments Adhes. Qzhy-Txxa-Jaevngtvhbao Rash 2014 Adhesive Tape-Silicones Rash 05/06/2019 Amoxicillin-Pot [...] 10 mg by mouth daily at bedtime. 11/26/19 22 Active lamoTRIgine (LAMICTAL) 100 mg tablet Take 100 mg by mouth every morning. 11/27/19 22 Active prazosin (MINIPRESS) 1 mg cap Take 1 mg by mouth daily at bedtime. 08/19/19 22 Active propranolol (INDERAL) 60 mg tablet Take 60 mg by mouth twice daily. 11/26/19 22 Active montelukast (SINGULAIR) 10 mg tablet Take 10 mg by mouth daily at bedtime. Active busPIRone (BUSPAR) 15 mg tablet Take 1 tablet by mouth every 12 hours. 07/08/19 24 Active cetirizine (ZYRTEC) 10 mg tablet Take 1 tablet by mouth every afternoon. 07/08/19 24 Active hydrOXYzine pamoate (VISTARIL) 50 mg capsule Take 50 mg by mouth at bedtime as needed. 07/08/19 24 Active OXcarbazepine (TRILEPTAL) 300 mg tablet Take 300 mg by mouth daily at bedtime. 07/08/19 24 Active levonorgestrel (MIRENA) 21 mcg/24 hours (8 yrs) 52 mg IUD 1 Each by INTRAUTERINE route one time only. Active omeprazole (PRILOSEC) 40 mg capsuleIndications :Status post biliopancreatic diversion with duodenal switch Take 1 capsule by mouth once daily. 90 capsule 08/17/19 24 Active ondansetron orally disintegrating (ZOFRAN ODT) 4 mg disintegrating tabletIndications: prevention of post-operative nausea and vomiting dissolve 1 tablet in mouth every 8 hours as needed for nausea/vomiting. 90 tablet 08/17/19 24 Active Zinc Acetate, Oral, 25 mg (zinc) capIndications:Imp aired intestinal absorption (HCC),S/P bariatric surgery,Dietary zinc deficiency Take 1 capsule by mouth once daily. 30 capsule 2 11/02/19 24 Active Cholecalciferol, Vitamin D3, 25 mcg (1,000 unit) capIndications:Imp aired intestinal absorption (HCC),S/P bariatric surgery,Vitamin D deficiency Take 2 capsules by mouth once daily. 60 capsule 2 11/02/19 24 Active ferrous sulfate 325 mg (65 mg iron) tabletIndications: Impaired intestinal absorption (HCC),S/P bariatric surgery,Iron deficiency Take 1 tablet by mouth once daily. 30 tablet 2 11/02/19 24 Active metFORMIN ER (GLUCOPHAGE XR) 500 mg 24 hr tablet take 1 tablet by mouth daily with dinner 30 tablet 3 03/04/20 24 Active tirzepatide (MOUNJARO) 2.5 mg/0.5 mL pen injectorIndication s:BMI 60.0-69.9, adult (HCC),S/P bariatric surgery,S/P biliopancreatic diversion with duodenal switch,Prediabetes Inject 2.5 mg subcutaneously one time a week. 2 mL 1 04/19/20 24 Active tirzepatide, weight loss (ZEPBOUND) 2.5 mg/0.5 mL pen injectorIndication s:TONEY (obstructive sleep apnea),S/P biliopancreatic diversion with duodenal switch,BMI 70 and over, adult (HCC) Inject 2.5 mg subcutaneously one time a week. Severe TONEY-AHI >30 2 mL 2 10/06/19 25 Active tirzepatide (MOUNJARO) 2.5 mg/0.5 mL pen injectorIndication s:S/P biliopancreatic diversion with duodenal switch,BMI 70 and over, adult (HCC),TONEY (obstructive sleep apnea),Type 2 diabetes mellitus without complication, without long-term current use of insulin ([facility]) Inject 2.5 mg subcutaneously one time a week. 2 mL 2 01/11/20 25 025 Active cholecalciferol, Vitamin D3, (VITAMIN D3) 1,250 mcg (50,000 unit) cap capsuleIndications :S/P biliopancreatic diversion with duodenal switch,BMI 70 and over, adult (HCC),TONEY (obstructive sleep apnea),Type 2 diabetes mellitus without complication, without long-term current use of insulin ([facility]) TAKE 1 CAPSULE BY MOUTH EVERY WEEK 12 capsule 1 01/26/20 25 Active Active Problems Problem Noted Date Diagnosed [...] organization. Date Type Department Care Team Description 02/16/2025 Abstract BMI [facility] REJ [address] [place] [address] Amina Light MD 02/15/2025 Telephone Pre Anesthesia [address] [place] [address] Joe Vargas MD 02/13/2025 3:00 PM EDT [facility] BMI PSYL [address] [place] [address] Dinah Perez, PhD Eating disorder, unspecified type (Primary Dx); Psychological factors affecting medical condition; Class 3 obesity (HCC) 02/09/2025 Patient Msg Pre Anesthesia [address] [place] [address] Provider, Ccf PRE OP APPOINTMENT NEEDED 02/08/2025 Patient Msg Pre Anesthesia [address] [place] [address] Provider, Ccf PRE OP APPOINTMENT NEEDED 02/08/2025 Telephone Pre Anesthesia [address] [place] [address] Gloria Balderas, REY.COKE HANDLING SUPERVISOR No Show 02/06/2025 3:00 PM EDT [facility] Surgery BMI [address] [place] [address] Lolis Mejía RD S/P biliopancreatic diversion with duodenal switch (Primary Dx); Dietary counseling and surveillance 02/06/2025 Patient [facility] BMI [address] [place] [address] Provider, Ccf Nutrition summary 01/30/2025 3:00 PM EDT [facility] Surgery BMI PSYL [address] [place] [address] Dinah Perez, PhD NO SHOW (Primary Dx) 01/24/2025 Refill General Surgery [address] [place] [address] Amina Light MD Med Change Request 01/23/2025 3:00 PM EDT [facility] Surgery BMI [address] [place] [address] Lolis Mejía RD S/P biliopancreatic diversion with duodenal switch (Primary Dx); Dietary counseling and surveillance; Type 2 diabetes mellitus without complication, without long-term current use of insulin ([facility]) 01/23/2025 Patient [facility] BMI [address] [place] [address] Provider, Ccf Nutrition summary 01/23/2025 Results Follow-Up BMI [facility] REJ [address] [place] [address] Amina Light MD 01/21/2025 Travel 01/16/2025 3:00 PM EDT [facility] Surgery BMI PSYL [address] [place] [address] Dinah Perez, PhD Eating disorder, unspecified type (Primary Dx); Psychological factors affecting medical condition; S/P bariatric surgery 01/10/2025 11:00 AM EDT [facility] [address] [place] [address] Amina Light MD S/P biliopancreatic diversion with duodenal switch (Primary Dx); BMI 70 and over, adult (HCC); TONEY (obstructive sleep apnea); Type 2 diabetes mellitus without complication, without long-term current use of insulin (HCC) 01/10/2025 Get Medical Advice General Surgery [address] [place] [address] Amina Light MD Mounjuro question 01/09/2025 3:00 PM EDT [facility] Surgery BMI PSYL [address] [place] [address] Dinah Perez, PhD APPOINTMENT CANCELLED (Primary Dx) 01/09/2025 Patient Msg General Surgery BMI PSYL [address] [place] [address] Dinah Perez, PhD Mindful eating exercise in Reboot on Thursday01/03/2025 Patient Msg Endocrinology [address] [place] [address] Elias Celestin, PhD chair exercises 01/02/2025 8:00 AM EDT [facility] [address] [place] [address] Impaired intestinal absorption (HCC) (Primary Dx); S/P biliopancreatic diversion with duodenal switch; BMI 70 and over, adult (HCC); Dietary counseling and surveillance 01/02/2025 Get Medical Advice General Surgery [address] [place] [address] Amina Light MD Question regarding a1c results 12/28/2024 3:00 PM EDT [facility] BMI [place]YL [address] [place] [address] Dinah Perez, PhD Eating disorder, unspecified type (Primary Dx); Psychological factors affecting medical condition; Class 3 obesity (HCC) 12/28/2024 Get Medical Advice General Surgery [address] [place] [address] Amina Light MD Question regarding test results 12/21/2024 Travel 12/21/2024 Patient Msg General Surgery BMI PSYL [address] [place] [address] Dinah Perez, PhD Reboot starting next week! 12/07/2024 Patient Msg General Surgery BMI PSYL [address] [place] [address] Dinah Perez, PhD Reboot opening 12/06/2024 Get Medical Advice General Surgery [address] [place] [id number] Amina Light MD Follow up from Last 3 Months Immunizations Immunization Administration [...] oz pur e alcohol) None since 2012 [facility] Utilities Answer Date Recorded In the past [...] is lower risk 4 01/15/2023 Data from: https://www.neighborhoodatlas.medicine.[facility].edu/. Last address used for calculation [address] [...] Contact Info) Description 03/06/2025 3:00 PM EDT [facility] Surgery BMI PSYL [address] [place] [address] Dinah Perez, PhD [address] [place] [address] 03/13/2025 3:00 PM EDT [facility] Surgery BMI PSYL [address] [place] [address] Dinah Perez, PhD [address] [place] [address] Emotional eating 03/20/2025 3:00 PM EDT [facility] Surgery BMI [address] [place] [address] Lolis Mejía, [address] [place] [address] Protein and Fluids Health Maintenance Due Date [...] adult (HCC) TONEY (obstructive sleep apnea) VITAMIN A (RETINOL), SERUM OR PLASMA Routine 12/27/2024 12:41 PM EDT S/P biliopancreatic [...] - 213.3 nmol/L 12/29/2024 10:[address] [facility] Comment: This assay measures the concentration of thiamine diphosphate (TDP), the primary active form of vitamin B1. Approximately 90 percent of vitamin B1 present in whole blood is TDP. Thiamine and thiamine monophosphate, which comprise the remaining 10 percent, are not measured. This test was developed, and its performance characteristics determined by the [facility] Department of Pathology and Laboratory Medicine. It has not been cleared or approved by the FDA. The [facility] Department of Pathology and Laboratory Medicine is regulated under CLIA as qualified to perform high- complexity testing. This test is used for clinical purposes. It should not be regarded as investigational or for research. Blood BLOOD SPECIMEN / Unknown Venipuncture / Unknown 12/27/2024 12:41 PM EDT 12/27/2024 12:41 PM EDT Amina Light MD LABORATORY Final Result Performing Organization Address [facility] de Phone Number [facility] [address] [address], [place] * (ABNORMAL) ZINC BLD (12/27/2024 12:41 PM EDT) Zinc 54(L) 60 - 120 ug/dL 12/28/2024 12:[address] [facility] Comment:This test was develo ped, and its performance characteristics determined by the [facility] Department of Pathology and Laboratory Medicine. It has not been cleared or approved by the FDA. The [facility] Department of Pathology and Laboratory Medicine is regulated under CLIA as qualified to perform high- complexity testing. This test is used for clinical purposes. It should not be regarded as investigational or for research. Blood BLOOD SPECIMEN / Unknown Venipuncture / Unknown 12/27/2024 12:41 PM EDT 12/27/2024 12:41 PM EDT Amina Light MD LABORATORY Final Result Performing Organization Address [facility] de Phone Number [facility] [address] [address], [place] * (ABNORMAL) VITAMIN D 25 HYDROXY (12/27/2024 12:41 PM EDT) Vitamin D 25 Hydroxy 24.3(L) 31.0 - 80.0 ng/mL 12/28/2024 11:[address] [facility] Blood BLOOD SPECIMEN / Unknown Venipuncture / Unknown 12/27/2024 12:41 PM EDT 12/27/2024 12:41 PM EDT Amina Light MD LABORATORY Final Result [facility] [address] [place] [id number], [place] * VITAMIN B12 (12/27/2024 12:41 PM EDT) Vitamin B12 655 232 - 1,245 pg/mL 12/28/2024 4:[address] [facility] Blood BLOOD SPECIMEN / Unknown Venipuncture / Unknown 12/27/2024 12:41 PM EDT 12/27/2024 12:41 PM EDT Amina Light MD LABORATORY Final Result Performing Organization Address [facility] Co de Phone Number [facility] [address] [place] [phone], [place] * VITAMIN A/RETINOL (12/27/2024 12:41 PM EDT) Vitamin A 0.60 0.30 - 1.20 mg/L 01/04/2025 11:[address] [facility] Comment: Test performed at [facility] in [place], [place]. This test was developed and its performance characteristics determined by [facility]. It has not been cleared or approved by the [place] Food and Drug Administration. This test was performed in a CLIA certified laboratory and is intended for clinical purposes. Blood BLOOD SPECIMEN / Unknown Venipuncture / Unknown 12/27/2024 12:41 PM EDT 12/27/2024 12:41 PM EDT Amina Light MD LABORATORY Final Result Performing Organization Address City/[facility]/ZIP Co de Phone Number [facility] [address] [place] [phone], [place] * THYROID STIMULATING HORMONE (12/27/2024 12:41 PM EDT) TSH 3.540 0.270 - 4.200 mIU/L 12/28/2024 3:[address] [facility] Comment: If the patient is , TSH reference range varies by gestational period: First Trimester (weeks 9-12): 0.180-2.990 mIU/L Second Trimester: 0.110-3.980 mIU/L Third Trimester: 0.480-4.710 mIU/L Jacoby Rush et al. A Practical Approach for the Verifications and Determination of Site- and Trimester-Specific Reference Intervals for Thyroid Function tests in . Thyroid, 2019:29:3:412-420. Amos Lyles, et al. 2017 Guidelines of the [place] Thyroid Association for the Diagnosis and Management of Thyroid Disease during and the . Thyroid, 2017:27:3:315-389. Blood BLOOD SPECIMEN / Unknown Venipuncture / Unknown 12/27/2024 12:41 PM EDT 12/27/2024 12:41 PM EDT Amina Light MD LABORATORY Final Result Performing Organization Address City/[facility]/ZIP Co de Phone Number [facility] [address] [place] [address], [place] * PTH INTACT (12/27/2024 12:41 PM EDT) PTH, Intact 47 15 - 65 pg/mL 12/28/2024 3:[address] [facility] Blood BLOOD SPECIMEN / Unknown Venipuncture / Unknown 12/27/2024 12:41 PM EDT 12/27/2024 12:41 PM EDT Amina Light MD LABORATORY Final Result [facility] [address] [place] [phone], [place] * IRON AND TIBC (12/27/2024 12:41 PM EDT) Iron 71 41 - 186 ug/dL 12/28/2024 3:[address] [facility] TIBC 362 232 - 386 ug/dL 12/28/2024 3:[address] [facility] Transferrin Saturation 19.6 15.0 - 57.0 % 12/28/2024 3:[address] [facility] Blood BLOOD SPECIMEN / Unknown Venipuncture / Unknown 12/27/2024 12:41 PM EDT 12/27/2024 12:41 PM EDT Amina Light MD LABORATORY Final Result Performing Organization Address [facility]/ZIP Co de Phone Number [facility] [address] [place] [phone], [place] * (ABNORMAL) HEMOGLOBIN A1C (12/27/2024 12:41 PM EDT) Hemoglobin A1C 7.1(H) 4.3 - 5.6 % 12/28/2024 6:[address] [facility] Comment:[place] Diabetes As sociation guidelines indicate that patients with HgbA1c in the range 5.7-6.4% are at increased risk for development of diabetes, and intervention by lifestyle modification may be beneficial. HgbA1c greater or equal to 6.5% is considered diagnostic of diabetes. Estimated Average Glucose 157 mg/dL 12/28/2024 6:[address] [facility] Comment:eAG: (Estimated aver age glucose) is a calculated value from HgbA1c and is sales representative cash registers of the average blood glucose level in the last 2-3 month period. Blood BLOOD SPECIMEN / Unknown Venipuncture / Unknown 12/27/2024 12:41 PM EDT 12/27/2024 12:41 PM EDT Amina Light MD LABORATORY Final Result Performing Organization Address City/[facility]/ZIP Co de Phone Number [facility] [address] [place] [phone], [place] * FOLATE, SERUM (12/27/2024 12:41 PM EDT) Folate >20.0 >4.7 ng/mL 12/28/2024 4:[address] [facility] Comment: A result of > 20 ng/mL is not necessarily indicative of a pathologic or treatable condition: it reflects a limitation of the test methodology. Assay reference range: 4.8 to 24.2 ng/mL. Suitable for detection of folate deficiency. Reference: Folate III (Folate III) [package insert V 1.0 Ethiopian]. [facility], [place], [place]: April 2015. Blood BLOOD SPECIMEN / Unknown Venipuncture / Unknown 12/27/2024 12:41 PM EDT 12/27/2024 12:41 PM EDT us Amina Light MD LABORATORY Final Result [facility] [address] [address] * LIPID PANEL BASIC (11/26/2006 3:00 PM EDT) Cholesterol, Total 161 MG/DL [facility] Comment: Desirable level: <200 mg/dL Borderline : 200 - 240 mg/dL High risk : >240 mg/dL Triglyceride 93 0 - 150 MG/DL [facility] HDL Cholesterol 38 MG/DL [facility] Comment: Major risk factor for CHD : <40 mg/dl. Negative risk factor for CHD: >=60 mg/dl. VLDL-Cholesterol 19 MG/DL [facility] LDL Cholesterol, Calculated 104 MG/DL [facility] Comment: Optimal : <100 mg/dL Near/Above Optimal: 100 - 129 mg/dL Borderline High : 130 - 159 mg/dL High : 160 - 189 mg/dL Very High : >=190 mg/dL TC:HDL Ratio 4.2 0.0 - 4.5 [facility] 11/26/2006 3:00 PM EDT 11/26/2006 6:37 PM EDT [facility](Historical) [facility] Final Result [facility] [address] [place] [id number] * PAP FLUID CERVICAL SCREENING (10/15/2006 2:18 PM EDT) Cytology Report Specimen #: [id number] Submitting Physician: LORRIE KIRKLAND M.D. ([id number]) SPECIMEN SUBMITTED A: CERVICAL,SCREENING ,FLUID FINAL DIAGNOSIS A. CERVICAL,SCREENING ,FLUID SATISFACTORY FOR INTERPRETATION. NO ENDOCERVICAL COMPONENT NEGATIVE FOR INTRAEPITHELIAL LESION OR MALIGNANCY. This specimen has been analyzed by the ThinPrep Imaging System (ViViFi), an automated imaging and review system, which assists the laboratory in evaluating cells on ThinPrep Pap tests. Following automated imaging, selected wolff from every slide are reviewed by a fighter pilot. EUSEBIA Pérez(ASCP) Electronic Signature CLINICAL DATA Date of Last Menstrual Period: 09/29/06 Clinical History: ROUTINE Additional Testing: Reflex HPV testing for ASCUS result Miguelina Aguiar M.D., Health Information Internship : 1985 (Age: 21) F Date of Report: 10/19/2006 Date of Procedure: 10/15/2006 Date of Receipt: 10/15/2006 Submitted by: LORRIE KIRKLAND M.D. ([id number]) Additional Physician(s): Location: A81 [facility] Specimen from uterine cervix (specimen) CERVICAL / Unknown 10/15/2006 2:18 PM EDT 10/15/2006 2:18 PM EDT us Lorrie Kirkland MD CYTOLOGY Final Result Performing Organization Address City/State/[facility] Co de Phone Number [facility] [address] [place] [address] from Last 3 Months or Most Recently Relevant to Health Maintenance Insurance [employer] [place] Member Subscriber Plan / Payer (Ef fective 2022-Present) Name:Susi Jackson Relation to Subscriber:Self Name:Anabell Jacksonkelli Naqvi Payer ID:[id number] (NAIC) Group ID:[id number] Type:Medicaid Address: [place] [id number] Care Teams Solar Installer Pv Relationship Specialty Start Date End Date Elizabet Dodd DO [address] [place] [address] PCP - General Family Medicine 04/16/22 Lolis Mejía, RD [address] [place] [address] Nutrition 02/07/25
--- OUTSIDE RECORDS SUMMARY | 2025-03-03 12:20 | XMS_ITS | Clinical Summary ---
Author Organization [facility] Address [id number] [place] [address] Care Team Providers Care Tavern Operator Name Role Phone Services, [facility] Primary Care Provider Allergies Active Allergy [...] Indications: bipolar disorder in remission. Active rizatriptan EMISSIONS TESTING TECHNICIAN (MAXALT-EMISSIONS TESTING TECHNICIAN) 10 mg disintegrating tablet Dissolve 1 tablet [...] to home. Medical Devices Implanted Type Area Gi Physician Device Identifier Shelf Expiration Date Model / Serial / Lot Stnt Esph 23mm 18.5fr 15.5cm - [id number] - [id number] Implanted:Qty: 1 on 06/26/2017 by Andrea Platt MD at [facility] [email or web address] [facility] 11/12/2018 [id number] / [id number] / [id number] Insurance [employer] [facility] MEDICAID Advance Directives * Full Code (Latest Code Status on File) Date Activated Date Inactivated Comments 08/06/2017 6:26 PM 08/18/2017 2:14 PM * Full Code Date Activated Date Inactivated Comments 08/06/2017 11:21 AM 08/06/2017 6:26 PM * Full Code Date Activated Date Inactivated Comments 06/10/2017 10:14 AM 06/12/2017 9:36 PM Care Teams Tavern Operator Relationship Specialty Start Date End Date [facility], [place] [address] [place] PCP - General Family Medicine 04/06/24
--- OUTSIDE RECORDS SUMMARY | 2025-03-03 12:20 | XMS_ITS | Encounter Summary ---
Author Organization [facility] Address [address] [place] [address] Care Team Providers Care Shoe Dyer Name Role Phone Elizabet Dodd DO Primary Care Provider [phone] [address]olis Mejía RD Unavailable Unavailable Source Comments In the event this information is protected by the Federal Confidentiality of Alcohol and Drug AbusePatient Records regulations: The Federal rules restrict any use of the information to criminally investigate or prosecute any alcohol or drug abuse patient.[facility] Encounter Details Date Type Department Care Team (Late st Contact Info) Description 09/25/2022 Patient Msg General Surgery [address] [place] [address] Provider, Ccf Bariatrics patient navigator [...] N ot on file 07/14/2022 Data from: https://www.neighborhoodatlas.medicine.[facility]/. Last address used for calculation [address] 07/14/2022 Comments No Sex and Gender Information [...] Contact Info) Description 03/06/2025 3:00 PM EDT [facility] General Surgery BMI PSYL [address] [place] [address] Dinah Perez, PhD [address] [place] [address] 03/13/2025 3:00 PM EDT [facility] Surgery BMI PSYL [address] [place] [address] Dinah Perez, PhD [address] [place] [address] Emotional eating 03/20/2025 3:00 PM EDT [facility] BMI [address] [place] [address] Lolis Mejía RD [address] [place] [address] Protein and Fluids documented as of this encounter Visit Diagnoses Not on filedocumented in this encounter Care Teams Shoe Dyer Relationship Specialty Start Date End Date Elizabet Dodd DO [address] [place] [address] PCP - General Family Medicine 04/16/22 Lolis Mejía RD [address] [place] [address] Nutrition 02/07/25 documented as of this encounter
--- OUTSIDE RECORDS SUMMARY | 2025-03-03 12:20 | XMS_ITS | Encounter Summary ---
Author Organization [facility] Address [address] [place] [address] Care Team Providers Care Finish Carpenter Name Role Phone LucasGeneva whitaker Viviane ALANIZ Primary Care Provider [phone] Elizabet Dodd DO Primary Care Provider [phone] Lolis Mejía RD Unavailable Unavailable Source Comments In the event this information is protected by the Federal Confidentiality of Alcohol and Drug AbusePatient Records regulations: The Federal rules restrict any use of the information to criminally investigate or prosecute any alcohol or drug abuse patient.[facility] Encounter Details Date Type Department Care Team (Late st Contact Info) Description 10/09/2021 Patient Msg BMI [facility] REJ [address] [place], [place] [id number] Provider, Cccholo Welcome to the BMI Program! [...] N ot on file 2020 Data from: https://www.neighborhoodatlas.medicine.[facility]/. Last address used for calculation Not on [...] Contact Info) Description 03/06/2025 3:00 PM ED[address] [facility] General Surgery BMI PSYL [address] [place], [place] [id number] Dinah Perez, PhD [address] [place] [address] 03/13/2025 3:00 PM EDT [facility] BMI PSYL [address] [facility] [place] [address] Dinah Perez, PhD [address] [place] [address] Emotional eating 03/20/2025 3:00 PM EDT [facility] BMI [address] [place] [address] Lolis Mejía RD [address] [place] [address] Protein and Fluids documented as of this encounter Visit Diagnoses Not on filedocumented in this encounter Care Teams Finish Carpenter Relationship Specialty Start Date End Date Geneva Estrada, SUPERVISOR WET POUR [address] [place] [place] [address] PCP - General Family Medicine 10/01/11 04/15/22 Elizabet Dodd DO [address] [place] [address] PCP - General Family Medicine 04/16/22 Lolis Mejía RD [address] [facility] [place] [address] Nutrition 02/07/25 documented as of this encounter
--- OUTSIDE RECORDS SUMMARY | 2025-03-03 12:20 | XMS_ITS | Encounter Summary ---
Author Organization [facility] Address [address] [place] [address] Care Team Providers Care 8Th Grade Mathematics Teacher Name Role Phone LucasGeneva whitaker Viviane ALANIZ Primary Care Provider [phone] Elizabet Dodd DO Primary Care Provider [phone] Lolis Mejía RD Unavailable Unavailable Source Comments In the event this information is protected by the Federal Confidentiality of Alcohol and Drug AbusePatient Records regulations: The Federal rules restrict any use of the information to criminally investigate or prosecute any alcohol or drug abuse patient.[facility] Encounter Details Date Type Department Care Team (Late st Contact Info) Description 11/04/2021 Patient Msg BMI [facility] REJ [address] [place], [place] [address] Provider, Ccf Nutrition Summary Social History Tobacco [...] N ot on file 2020 Data from: https://www.neighborhoodatlas.medicine.[facility]/. Last address used for calculation Not [...] Contact Info) Description 03/06/2025 3:00 PM EDT [facility] Surgery BMI PSYL [address] [place] [address] Dinah Perez, PhD [address] [place] [address] 03/13/2025 3:00 PM EDT [facility] BMI PSYL [address] [place] [address] Dinah Perez, PhD [address] [place] [address] Emotional eating 03/20/2025 3:00 PM EDT [facility] BMI [address] [place] [address] Lolis Mejía RD [address] [place] [address] Protein and Fluids documented as of this encounter Visit Diagnoses Not on filedocumented in this encounter Care Teams 8Th Grade Mathematics Teacher Relationship Specialty Start Date End Date Geneva Estrada SUPERVISOR COMPRESSED YEAST [facility] [place] [address] PCP - General Family Medicine 10/01/11 04/15/22 Elizabet Dodd DO [address] [place] [address] PCP - General Family Medicine 04/16/22 Lolis Mejía RD [address] [place] [address] Nutrition 02/07/25 documented as of this encounter
--- OUTSIDE RECORDS SUMMARY | 2025-03-03 12:20 | XMS_ITS | Encounter Summary ---
Author Organization [facility] Address [address] [place] [address] Care Team Providers Care Bull Fiddle Player Name Role Phone WestElizabet gandara DO Primary Care Provider [phone] Lolis Mejía RD Unavailable Unavailable Source Comments In the event this information is protected by the Federal Confidentiality of Alcohol and Drug AbusePatient Records regulations: The Federal rules restrict any use of the information to criminally investigate or prosecute any alcohol or drug abuse patient.[facility] Encounter Details Date Type Department Care Team (Late st Contact Info) Description 02/16/2025 Abstract BMI [facility] REJ [address] [place] [address] Amina Light MD [address] [place] [address] Social History Tobacco Use Types Packs/Day Years Used Date Smoking Tobacco: Former Cigarettes 0.5 5 0 12/27/2008 - 12/27/2013 Smokeless Tobacco: Never Alcohol Use Standard Drinks/Week Comments Not Currently 0 (1 standard drink = 0.6 oz pur e alcohol) None since 2012 [facility] Utilities Answer Date Recorded In the [...] Contact Info) Description 03/06/2025 3:00 PM EDT [facility] Surgery BMI PSYL [address] [place] [address] Dinah Perez, PhD [address] [place] [address] 03/13/2025 3:00 PM EDT [facility] BMI PSYL [address] [place] [address] Dinah Perez, PhD [address] [place] [address] Emotional eating 03/20/2025 3:00 PM EDT [facility] BMI [address] [place] [address] Lolis Mejía, RD [address] [place] [address] Protein and Fluids documented as of this encounter Visit Diagnoses Not on filedocumented in this encounter Care Teams Bull Fiddle Player Relationship Specialty Start Date End Date Elizabet Dodd DO [address] [place] [address] PCP - General Family Medicine 04/16/22 Lolis Mejía RD [address] [place] [address] Nutrition 02/07/25 documented as of this encounter
--- OUTSIDE RECORDS SUMMARY | 2025-03-03 12:20 | XMS_ITS | Encounter Summary ---
Author Organization [facility] Address [address] [place] [address] Care Team Providers Care Dry Charge Process Attendant Name Role Phone Elizabet Dodd DO Primary Care Provider [phone] Lolis Mejía RD Unavailable Unavailable Source Comments In the event this information is protected by the Federal Confidentiality of Alcohol and Drug AbusePatient Records regulations: The Federal rules restrict any use of the information to criminally investigate or prosecute any alcohol or drug abuse patient.[facility] Encounter Details Date Type Department Care Team (Late st Contact Info) Description 03/05/2023 Patient Msg General Surgery [address] [place] [address] Provider, Ccf Nutrition Summary Social [...] is lower risk 4 01/15/2023 Data from: https://www.neighborhoodatlas.[facility]/. Last address used for calculation [address] [...] Description 03/06/2025 3:00 PM EDT [facility] General Surgery BMI PSYL [address] [place] [address] Dinah Perez, PhD [address] [place] [address] 03/13/2025 3:00 PM EDT [facility] General Surgery BMI PSYL [address] [facility] [address] Dinah Perez, PhD [address] [place] [address] Emotional eating 03/20/2025 3:00 PM EDT [facility] Surgery BMI [address] [place] [address] Lolis Mejía RD [address] [place] [address] Protein and Fluids documented as of this encounter Visit Diagnoses Not on filedocumented in this encounter Care Teams Dry Charge Process Attendant Relationship Specialty Start Date End Date Elizabet Dodd DO [address] [place] [address] PCP - General Family Medicine 04/16/22 Lolis Mejía RD [address] [place] [address] Nutrition 02/07/25 documented as of this encounter
--- OUTSIDE RECORDS SUMMARY | 2025-03-03 12:20 | XMS_ITS | Encounter Summary ---
Author Organization [facility] Address [address] [place] [address] Care Team Providers Care Toll Bridge Operator Name Role Phone Elizabet Dodd DO Primary Care Provider [phone] Lolis Mejía RD Unavailable Unavailable Source Comments In the event this information is protected by the Federal Confidentiality of Alcohol and Drug AbusePatient Records regulations: The Federal rules restrict any use of the information to criminally investigate or prosecute any alcohol or drug abuse patient.[facility] Encounter Details Date Type Department Care Team (Late st Contact Info) Description 04/30/2022 Patient Msg BMI [facility] REJ [address] [place], [place] [address] Pao Hodgson RN [address] [place], [place] [id number] Lab Results Social History Tobacco Use Types [...] ot on file 12/05/2021 Data from: https://www.neighborhoodatlas.medicine.[facility]/. Last address used for calculation [address] 12/05/2021 Comments No Sex and Gender [...] Contact Info) Description 03/06/2025 3:00 PM EDT [facility] General Surgery BMI PSYL [address] [place] [address] Dinah Perez, PhD [address] [place] [address] 03/13/2025 3:00 PM EDT [facility] BMI PSYL [address] [place] [address] Dinah Perez, PhD [address] [place] [address] Emotional eating 03/20/2025 3:00 PM EDT [facility] BMI [address] [place] [address] Lolis Mejía RD [address] [place] [address] Protein and Fluids documented as of this encounter Visit Diagnoses Not on filedocumented in this encounter Care Teams Toll Bridge Operator Relationship Specialty Start Date End Date Elizabet Dodd DO [address] [place] [address] PCP - General Family Medicine 04/16/22 Lolis Mejía RD [address] [place] [address] Nutrition 02/07/25 documented as of this encounter
--- OUTSIDE RECORDS SUMMARY | 2025-03-03 12:20 | XMS_ITS | Encounter Summary ---
Author Organization [facility] Address [address] [place] [address] Care Team Providers Care Manager Of Corporate Communications Name Role Phone LucasGeneva whitaker Viviane ALANIZ Primary Care Provider [phone] Elizabet Dodd DO Primary Care Provider Lolis Mejía RD Unavailable Unavailable Source Comments In the event this information is protected by the Federal Confidentiality of Alcohol and Drug AbusePatient Records regulations: The Federal rules restrict any use of the information to criminally investigate or prosecute any alcohol or drug abuse patient.[facility] Encounter Details Date Type Department Care Team (Late st Contact Info) Description 10/08/2021 Patient Msg General Surgery [address] [place] [address] Provider, Ccf Nutrition Summary Social [...] N ot on file 2020 Data from: https://www.neighborhoodatlas.medicine.[facility]/. Last address used for [...] Contact Info) Description 03/06/2025 3:00 PM EDT [facility] General Surgery BMI PSYL [address] [place] [address] Dinah Perez, PhD [address] [place] [address] 03/13/2025 3:00 PM EDT [facility] Surgery BMI PSYL [address] [place] [address] Dinah Perez, PhD [address] [place] [address] Emotional eating 03/20/2025 3:00 PM EDT [facility] BMI [address] [place] [address] Lolis Mejía RD [address] [place] [address] Protein and Fluids documented as of this encounter Visit Diagnoses Not on filedocumented in this encounter Care Teams Manager Of Corporate Communications Relationship Specialty Start Date End Date Geneva Estrada, VETERANS REHABILITATION COUNSELOR [address] [facility] [facility] [place] [address] PCP - General Family Medicine 10/01/11 04/15/22 Elizabet Dodd DO [address] [place] [address] PCP - General Family Medicine 04/16/22 Lolis Mejía RD [address] [place] [address] Nutrition 02/07/25 documented as of this encounter
--- OUTSIDE RECORDS SUMMARY | 2025-03-03 12:20 | XMS_ITS | Encounter Summary ---
Author Organization [facility] Address [address] [place] [address] Care Team Providers Care Interior Painter Name Role Phone LucasGeneva whitaker Viviane ALANIZ Primary Care Provider [phone] Elizabet Dodd DO Primary Care Provider [phone] Lolis Mejía RD Unavailable Unavailable Source Comments In the event this information is protected by the Federal Confidentiality of Alcohol and Drug AbusePatient Records regulations: The Federal rules restrict any use of the information to criminally investigate or prosecute any alcohol or drug abuse patient.[facility] Encounter Details Date Type Department Care Team (Late st Contact Info) Description 01/17/2022 Patient Msg General Surgery [address] [place] [address] Provider, Ccf Nutrition Summary Social [...] on file 12/05/2021 Data from: https://www.neighborhoodatlas.medicine.[facility]/. Last address used for calculation [address] 12/05/2021 Comments No Sex and Gender [...] Info) Description 03/06/2025 3:00 PM EDT [facility] Surgery BMI PSYL [address] [place] [address] Dinah Perez, PhD [address] [place] [address] 03/13/2025 3:00 PM EDT [facility] BMI PSYL [address] [place] [address] Dinah Perez, PhD [address] [place] [address] Emotional eating 03/20/2025 3:00 PM EDT [facility] BMI [address] [place] [address] Lolis Mejía RD [address] [place] [address] Protein and Fluids documented as of this encounter Visit Diagnoses Not on filedocumented in this encounter Care Teams Interior Painter Relationship Specialty Start Date End Date Geneva Estrada HORSE TRAINER [facility] [place] [address] PCP - General Family Medicine 10/01/11 04/15/22 Elizabet Dodd DO [address] [place] [address] PCP - General Family Medicine 04/16/22 Lolis Mejía RD [address] [place] [address] Nutrition 02/07/25 documented as of this encounter
--- OUTSIDE RECORDS SUMMARY | 2025-03-03 12:20 | XMS_ITS | Encounter Summary ---
Author Organization [facility] Address [address] [place] [address] Care Team Providers Care Hospital Nursing Assistant Name Role Phone Elizabet Dodd DO Primary Care Provider [phone] Shaylee Kendall Unavailable Unavailable Mariia Quinteros Unavailable Encounter Details Date Type Department Care Team (Late st Contact Info) Description 03/10/2024 Clinisync Result Encounter [facility] External Department Unsolicited Kiko Harley DO [address] [place] [address] Social History Tobacco Use Types Packs/Day Years Used Date Smoking Tobacco: Former Cigarettes 0.5 10 0 06/29/2003 - 06/29/2013 Smokeless Tobacco: Never Alcohol Use [...] 03/13/2025 1:30 PM EDT Office Visit [facility] [address] [place] [address] Juan Villar, BETY [address] [place], [place] [address] documented as of this encounter Procedures Procedure Name Priority Date/Time Associated Diagnosis Comments US PELVIS W/ TRANSVAGINAL 03/10/2024 9:03 AM EDT documented in this encounter Results * US PELVIS W/ TRANSVAGINAL (03/10/2024 9:03 AM EDT) Anatomical Region Laterality Modality Other 03/10/2024 9:03 AM EDT Narrative 03/10/2024 9:06 [place] [address] Ultrasound Report Signed Patient: ANGELES JACKSON MR#: [id number] : 1985 Acct:[id number] Age/Sex: 38 / F ADM Date: 03/09/24 Loc: [facility] Attending Dr: Kiko Harley D.O. Ordering Physician: Kiko Harley D.O. Date of Service: 03/09/24 Procedure(s): US pelvis w/ transvaginal Accession Number(s): [id number] cc: Kiko Harley D.O.; Lisa Roberts NP [place] [address] Patient Name: ANGELES JACKSON MRN: [id number] date: 1985 Sex: F Assigned Patient Location: [facility] Current Patient Location: Accession/Order Number: [id number] Exam Date: 03/09/2024 14:05 Report Date: 03/10/2024 09:03 At the request of: KIKO HARLEY Procedure: US pelvis w/ transvaginal EXAMINATION: US pelvis w/ transvaginal HISTORY: PELVIC PAIN COMPARISON: No relevant comparison available. FINDINGS: Transabdominal and transvaginal images The uterus is enlarged in size heterogeneous in echotexture measuring 11.0 x 5.0 x 5.3 cm. The uterus is anteverted, anteflexed. No focal myometrial mass. The endometrium measures 1.3 cm. An IUD is reported however images are indeterminate for an IUD The right ovary is enlarged measuring 7.0 x 5.3 x 5.1 cm. Normal color and Doppler flow. Area of anechoic echogenicity with internal low-level echoes and septations but no color flow measuring 5.5 x 4.2 x 3.4 cm Left ovary is not visualized Suboptimal exam secondary to patient body habitus US/US pelvis w/ transvaginal IMPRESSION: 5.5 cm complex cystic structure in the right ovary. Differential diagnosis includes a complex cyst, hemorrhagic cyst or endometrioma Electronically authenticated by: ESTELLA WHITEHEAD Date: 03/10/2024 09:03 Dictated By: Estella Whitehead M.D. Signed By: 03/10/24905 DD/ 2 TD/TT: Hander In: Procedure Note Radiology, Radiologist, MD - 03/10/2024 [place] [address] Ultrasound Report Signed Patient: ANGELES JACKSON AMR#: [id number] : 1985Acct:[id number] Age/Sex: 38 / FADM Date: 03/09/24 Loc: [facility] Attending Dr: Kiko Harley D.O. Ordering Physician: Kiko Harley D.O. Date of Service: 03/09/24 Procedure(s): US pelvis w/ transvaginal Accession Number(s): [id number] cc: Kiko Harley D.O.; Lisa Roberts The [place] [address] Patient Name: ANGELES JACKSON MRN: [id number] date: 1985 Sex: F Assigned Patient Location: [facility] Current Patient Location: Accession/Order Number: [id number] Exam Date: 03/09/2024 14:05 Report Date: 03/10/2024 09:03 At the request of: KIKO HARLEY Procedure: US pelvis w/ transvaginal EXAMINATION: US pelvis w/ transvaginal HISTORY: PELVIC PAIN COMPARISON: No relevant comparison available. FINDINGS: Transabdominal and transvaginal images The uterus is enlarged in size heterogeneous in echotexture measuring 11.0x 5.0 x 5.3 cm. The uterus is anteverted, anteflexed. No focal myometrialmass. The endometrium measures 1.3 cm. An IUD is reported however images are indeterminate for an IUD The right ovary is enlarged measuring 7.0 x 5.3 x 5.1 cm. Normal color and Doppler flow. Area of anechoic echogenicity with internal low-level echoesand septations but no color flow measuring 5.5 x 4.2 x 3.4 cm Left ovary is not visualized Suboptimal exam secondary to patient body habitus US/US pelvis w/ transvaginal IMPRESSION: 5.5 cm complex cystic structure in the right ovary. Differential diagnosis includes a complex cyst, hemorrhagic cyst or endometrioma Electronically authenticated by: ESTELLA WHITEHEAD Date: 03/10/2024 09:03 Dictated By: Estella Whitehead M.D. Signed By:03/10/24905 DD/ 2 TD/TT: Hander In: us Kiko Cherri DO [facility] Final Result documented in this encounter Visit Diagnoses Not on filedocumented in this encounter Care Teams Hospital Nursing Assistant Relationship Specialty Start Date End Date Elizabet Dodd DO [address] [place] [address] PCP - General Family Medicine 09/16/23 Shaylee Kendall PCP - [facility] 12/28/23 Mariia Quinteros PA [address] [place] [address] Physician Financial Compliance Manager Neurology 09/14/24 documented as of this encounter
--- OUTSIDE RECORDS SUMMARY | 2025-03-03 12:20 | XMS_ITS | Encounter Summary ---
Author Organization [facility] Address [address] [place] [address] Care Team Providers Care Feed Miller Name Role Phone Elizabet Dodd DO Primary Care Provider [phone] Shaylee Kendall Unavailable Unavailable Mariia Quinteros Unavailable Encounter Details Date Type Department Care Team (Late Contact Info) Description 03/06/2024 Abstract [facility] [address] [place] [address] Jamie Harley DO [address] [facility] [address] Antonella Saeed, [facility] Social History Tobacco Use Types Packs/Day Years [...] Description 03/13/2025 1:30 PM EDT [facility] [address] [place] [address] Juan Villar NP [address] [place], [place] [address] documented as of this encounter Visit Diagnoses Not on filedocumented in this encounter Care Teams Feed Miller Relationship Specialty Start Date End Date Elizabet Dodd DO [address] [place] [address] PCP - General Family Medicine 09/16/23 Shaylee Kendall PCP - [facility] 12/28/23 Mariia Quinteros PA [address] [facility] [address] [place] [address] Physician Senior Test Engineer Neurology 09/14/24 documented as of this encounter
--- OUTSIDE RECORDS SUMMARY | 2025-03-03 12:20 | XMS_ITS | Encounter Summary ---
Author Organization [facility] [employer] Address [id number] [address] [place] [address] Care Team Providers Care Ski Lift Operator Name Role Phone Services, [facility] Primary Care Provider Encounter Details Date Type Department Care Team (Late st Contact Info) Description 08/17/2024 Orders Only [facility] Oncology, A Department of [facility] [address] [place] [address] Yakelin Cherry RN Pelvic mass [...] pain documented in this encounter Care Teams Ski Lift Operator Relationship Specialty Start Date End Date [facility], [facility] [address] [place], [place] PCP - General Family Medicine 04/06/24 documented as of this encounter
--- OUTSIDE RECORDS SUMMARY | 2025-03-03 12:20 | XMS_ITS | Encounter Summary ---
Author Organization [facility] Address [address] [place] [address] Care Team Providers Care Food Service Supervisor Name Role Phone LucasGeneva whitaker Viviane ALANIZ Primary Care Provider [phone] Elizabet Dodd DO Primary Care Provider [phone] Lolis Mejía RD Unavailable Unavailable Source Comments [...] Info) Description 03/14/2022 Patient Msg General Surgery [address] [place] [address] Provider, Ccf upper GI Social [...] N ot on file 12/05/2021 Data from: https://www.neighborhoodatlas.medicine.[facility]/. Last address used for calculation [address] 12/05/2021 Comments No Sex and Gender [...] Contact Info) Description 03/06/2025 3:00 PM EDT [facility] Surgery BMI PSYL [address] [place] [address] Dinah Perez, PhD [address] [place] [address] 03/13/2025 3:00 PM EDT [facility] BMI PSYL [address] [place] [address] Dinah Perez, PhD [address] [place] [address] Emotional eating 03/20/2025 3:00 PM EDT [facility] BMI [address] [place] [address] Lolis Mejía RD [address] [place] [address] Protein and Fluids documented as of this encounter Visit Diagnoses Not on filedocumented in this encounter Care Teams Food Service Supervisor Relationship Specialty Start Date End Date Geneva Estrada, WINTER SPORTS MANAGER [address] [place] [address] PCP - General Family Medicine 10/01/11 04/15/22 Elizabet Dodd DO [address] [place] [address] PCP - General Family Medicine 04/16/22 Lolis Mejía RD [address] [place] [address] Nutrition 02/07/25 documented as of this encounter
--- OUTSIDE RECORDS SUMMARY | 2025-03-03 12:20 | XMS_ITS | Encounter Summary ---
Author Organization [facility] Address [address] [place] [address] Care Team Providers Care Natural Resources Professor Name Role Phone Elizabet Dodd DO Primary Care Provider Lolis Mejía RD Unavailable Unavailable Source Comments In the event this information is protected by the Federal Confidentiality of Alcohol and Drug AbusePatient Records regulations: The Federal rules restrict any use of the information to criminally investigate or prosecute any alcohol or drug abuse patient.[facility] Encounter Details Date Type Department Care Team (Late st Contact Info) Description 07/09/2022 Patient Msg General Surgery [address] [place] [address] Provider, Cccholo Nutrion Summary Social [...] N ot on file 12/05/2021 Data from: https://www.neighborhoodatlas.medicine.[facility]/. Last address used for calculation [address] 12/05/2021 Comments No Sex and Gender [...] of Assessment Author No 10/09/2015 10:58 AM Kne James RN * Because of a physical, [...] Contact Info) Description 03/06/2025 3:[address] [facility] General Surgery BMI PSYL [address] [place] [address] Dinah Perez, PhD [address] [place] [address] 03/13/2025 3:00 PM EDT [facility] General Surgery BMI PSYL [address] [facility] [place] [address] Dinah Perez, PhD [address] [place] [address] Emotional eating 03/20/2025 3:[address] [facility] BMI [address] [place] [address] Lolis Mejía RD [address] [place] [address] Protein and Fluids documented as of this encounter Visit Diagnoses Not on filedocumented in this encounter Care Teams Natural Resources Professor Relationship Specialty Start Date End Date Elizabet Dodd DO [address] [place] [address] PCP - General Family Medicine 04/16/22 Lolis Mejía RD [address] [place] [address] Nutrition 02/07/25 documented as of this encounter
--- OUTSIDE RECORDS SUMMARY | 2025-03-03 12:20 | XMS_ITS | Encounter Summary ---
Author Organization [facility] Sy [facility] Address [id number] [address] [place] [address] Care Team Providers Care Real Estate Office Supervisor Name Role Phone Services, [facility] Primary Care Provider Reason for Visit * Reason Onset Date Comments Med Refill 08/31/2017 Encounter Details Date Type Department Care Team (Late st Contact Info) Description 08/31/2017 Refill [facility] - Surgery Pre and Post OP [address] [place] [address] Ursula Gibson RN Social History [...] in this encounter Care Teams Real Estate Office Supervisor Relationship Specialty Start Date End Date Services, [facility] [address] [place] PCP - General Family Medicine 04/06/24 documented as of this encounter
--- OUTSIDE RECORDS SUMMARY | 2025-03-03 12:20 | XMS_ITS | Encounter Summary ---
Author Organization [facility] Address [address] [place] [address] Care Team Providers Care Staff Certified Nurse Midwife Name Role Phone Elizabet Dodd DO Primary Care Provider Lolis Mejía RD Unavailable Unavailable Source Comments In the event this information is protected by the Federal Confidentiality of Alcohol and Drug AbusePatient Records regulations: The Federal rules restrict any use of the information to criminally investigate or prosecute any alcohol or drug abuse patient.[facility] Encounter Details Date Type Department Care Team (Late st Contact Info) Description 06/09/2022 Patient Msg General Surgery [address] [place] [address] Provider, Ccf Nutrition Summary Social [...] N ot on file 12/05/2021 Data from: https://www.neighborhoodatlas.medicine.[facility]/. Last address used [...] Contact Info) Description 03/06/2025 3:00 PM EDT [facility] General Surgery BMI PSYL [address] [place] [address] Dinah Perez, PhD [address] [place] [address] 03/13/2025 3:00 PM EDT [facility] General Surgery BMI PSYL [address] [place] [address] Dinah Perez, PhD [address] [place] [address] Emotional eating 03/20/2025 3:00 PM EDT [facility] BMI [address] [place] [address] Lolis Mejía RD [address] [place] [address] Protein and Fluids documented as of this encounter Visit Diagnoses Not on filedocumented in this encounter Care Teams Staff Certified Nurse Midwife Relationship Specialty Start Date End Date Elizabet Dodd DO [address] [place] [address] PCP - General Family Medicine 04/16/22 Lolis Mejía RD [address] [place] [address] Nutrition 02/07/25 documented as of this encounter
--- OUTSIDE RECORDS SUMMARY | 2025-03-03 12:21 | XMS_ITS | Clinical Summary ---
Author Organization [facility] Address [address] [place] [address] Care Team Providers Care Oncology Physician Assistant Name Role Phone WestElizabet gandara DO Primary Care Provider [phone] Shaylee Kendall Unavailable Unavailable Mariia Quinteros Unavailable Allergies Active Allergy Reactions Criticality Noted Date Comments Amoxicillin-Pot Clavulanate Diarrhea Medium 10/10/2016 Other Reaction(s): GI Disturbance, Other (See Comments) Cephalexin Itching,Rash Low 05/06/2019 Other Reaction(s): Unknown Penicillins Hives,Rash Low 05/29/2017 Other Reaction(s): Unknown Other Reaction(s): Not available Tramadol Hives,Itching Medium 03/13/2015 Other Reaction(s): Unknown Other Reaction(s): Not available Wound Dressing Adhesive Rash Low 03/13/2015 Other Reaction(s): Unknown OK TO USE PAPER TAPE Other Reaction(s): Not available Other Reaction(s): Rash Comments: skin peeling. Medications esomeprazole (NexIUM) [address] capsule 1 capsule 1 (one) time each day at the same time Active DULoxetine (Cymbalta) [address] capsule Take 60 mg by mouth Daily Active cholecalciferol (Vitamin D-3) 1.25 MG (41879 UT) capsule Active cetirizine (ZyrTEC) 10 MG tablet Take 10 mg by mouth Daily Active calcium citrate 250 MG tablet Take 500 mg by mouth Daily Active Levonorgestrel (Mirena, 52 MG,) 20 MCG/DAY intrauterine device 1 each by Intrauterine route Active busPIRone (Buspar) 30 MG tablet Take 15 mg by mouth Daily Active montelukast (Singulair) 10 MG tablet 1 (one) time each day at the same time Active Multiple Vitamin (Multi Vitamin) tablet 1 (one) time each day at the same time Active omeprazole (PriLOSEC) [address] capsule 1 (one) time each day at the same time Active prazosin (Minipress) 2 MG capsule 1 (one) time each day at the same time Active propranolol (Inderal) 60 MG tablet every 12 (twelve) hours Active hydrOXYzine pamoate (Vistaril) 50 MG capsule TAKE 1 CAPSULE BY MOUTH AT BEDTIME NEEDED oral at bed time as needed for 90 days 07/08/19 24 Active hydroCHLOROthiazid e (HYDRODiuril) 12.5 MG tablet TAKE 1 TABLET BY MOUTH IN THE MORNING EVERY DAY Active lamoTRIgine (LaMICtal) 100 MG tablet Take 1 tablet by mouth in the morning. Active loratadine (Claritin) 10 MG tablet TAKE 1 TABLET BY MOUTH DAILY Oral for 30 Active ondansetron ODT (Zofran-ODT) 4 MG disintegrating tablet 08/17/19 24 Active SUMAtriptan (Imitrex) 50 MG tablet Active Multiple Vitamins-Minerals (Bariatric Multivitamins/Iron ) capsule Take by mouth Active biotin 10 MG tablet Take 10 mg by mouth Active calcium carbonate (Os-Gilberto) 1250 (500 Ca) MG tablet Take 1,250 mg by mouth in the morning and 1,250 mg before bedtime. Active eletriptan (Relpax) 20 MG tablet Take 20 mg by mouth 1 (one) time if needed for migraine May repeat in 2 hours if unresolved. Do not exceed 80 mg in 24 hours. Max 3 days a week Active famotidine (Pepcid) 20 MG tablet TAKE 1 TABLET BY MOUTH AT BEDTIME ONCE DAILY NEEDED 11/06/19 24 Active ARIPiprazole (Abilify) 15 MG tablet Take 15 mg by mouth at bedtime 11/06/19 24 Active Zinc Acetate 25 MG capsule Take 25 mg by mouth in the morning. 11/02/19 24 Active metFORMIN XR (Glucophage-XR) 500 MG 24 hr tablet Take 500 mg by mouth in the evening. Take with meals 11/03/19 24 Active ferrous sulfate 325 (65 Fe) MG tablet Take 325 mg by mouth in the morning. 11/02/19 24 Active LORazepam (Ativan) 0.5 MG tabletIndications: Internal derangement of right knee Take 1 tablet (0.5 mg) by mouth See administration instructions for 1 dose 1 by mouth 1 hour prior to MRI 1 tablet 04/27/20 24 Active Additional Information Patient not taking.Reported on 09/14/2024 ondansetron (Zofran) 4 MG tabletIndications: Nausea Take 1 tablet (4 mg) by mouth every 6 (six) hours if needed for nausea or vomiting for up to 30 doses Take 1 tablet by mouth every 6 hours as needed for nausea. 30 tablet 3 07/06/19 25 Active benzonatate (Tessalon) 200 MG capsule Take 200 mg by mouth 3 (three) times a day as needed 08/14/19 25 Active diclofenac (Voltaren) 75 MG EC tablet Take 75 mg by mouth 2 (two) times a day as needed 09/01/19 25 Active HYDROcodone-acetam inophen (Wharton) 5-325 MG tablet TAKE 1 TABLET BY MOUTH EVERY 6 HOURS NEEDED FOR PAIN FOR 5 DAYS 03/13/20 24 Active methocarbamol (Robaxin) 750 MG tablet Take 750 mg by mouth in the morning and 750 mg at noon and 750 mg in the evening and 750 mg before bedtime. 05/05/20 24 Active traZODone (Desyrel) 50 MG tablet Take 50 mg by mouth as needed at bedtime 09/01/19 25 Active rizatriptan ASSEMBLY MACHINE FEEDER (Maxalt-ASSEMBLY MACHINE FEEDER) 10 MG disintegrating tabletIndications: Migraine without aura and without status migrainosus, not intractable Take 1 tablet (10 mg) by mouth 1 (one) time if needed for migraine for up to 30 doses May repeat in 2 hours if unresolved. Do not exceed 30 mg in 24 hours. 9 tablet 3 09/16/19 25 Active OXcarbazepine (Trileptal) 300 MG tabletIndications: Migraine without aura and without status migrainosus, not intractable 1 tab PO at bedtime for 7 days, then go to BID thereafter 60 tablet 3 09/20/19 25 Active Hospital, Clinic, or Other Facility Administered Medication Ordered Dose Route Frequency Start Date End Date Status Levonorgestrel intrauterine deviceIndications:Encounter for IUD insertion IU Daily 09/01/2023 Active Active Problems Problem Noted Date Diagnosed Date Insomnia 11/09/2023 Migraine 11/09/2023 Myalgia 11/09/2023 Sleep apnea 11/09/2023 Muscle spasm 11/09/2023 Tension type headache 11/09/2023 TONEY (obstructive sleep apnea) 11/09/2023 Chronic migraine without aur a without status migrainosus, not intractable 11/09/2023 Overview (11/09/2023): 38 year old female new patient referred by Dr Dodd for migraines. The patient has a past medical history of bipolar disorder, depression, anxiety, hypertension, GERD, and seasonal allergies. She was seen in 2015 states that they went away afte her gastric sleeve surgery in 2018 and then came back 2 years ago. Headaches are most consitent with migraine headaches associated with a cervicogenic component. Another consideration would be pseudotumor cerebri given her body habitus. Untreated TONEY likely contributing. She has been on multiple medications in the past for headache prevention at low doses without benfit. She has responded fairly well to tirleptal. Relpax was denied by her insurance. I will try to get her maxalt ASSEMBLY MACHINE FEEDER since she just uinderwent a 2nd gastric bypass surgery and risk of poor absorption. Hypokalemia 08/07/2023 Hypophosphatemia 08/07/2023 S/P bariatric surgery 08/04/2023 Morbid obesity 06/10/2017 Arthralgia of both knees 01/17/2017 Chronic midline low back pain without sciatica 0 01/17/2017 Bipolar depression 10/04/2015 Overview (10/13/2023): Last Assessment & Plan: Assessment: managed on medication by PCP and psych DDD (degenerative disc disease), lumbar 10/04/19 16 GERD without esophagitis 10/04/2015 Overview (10/13/2023): Last Assessment & Plan: Assessment: Controlled on medication TONEY on CPAP 10/04/2015 Overview (10/13/2023): Last Assessment & Plan: Assessment: Noncompliant with CPAP Encounters Date Type Department Care Team Description 02/05/2025 Refill [facility] [address] [place] [phone] Mariia Quinteros PA Migraine without aura and without status migrainosus, not intractable from Last 3 Months Immunizations Immunization Administration Dates Next Due Hep B, adult 04/04/2019,03/02/2019 Hib (PRP-T) 12/18/2014 Influenza, High Dose Seasona l, Preservative Free 05/30/2019 Influenza, Injectable, MDCK, preservative free 04/27/2015 Influenza, injectable, MDCK, preservative free, quadrivalent 06/13/2021 Influenza, injectable, quadr ivalent, preservative free 06/20/2019,06/07/2019,05/12/2017 Influenza, seasonal, injecta ble, preservative free 04/21/2016 Meningococcal MCV4O 01/04/2020,12/18/2014 PPD Test 01/02/2020,12/26/2019 Pneumococcal Conjugate PCV 13 01/02/2020 Tdap 08/11/2019 Family History Medical History Relation Name Comments Cancer Father Bee Diabetes Father Bee Hypertension Father Bee Lymphoma Father Bee Thyroid disease Mother Relation Name Status Comments [facility] Mother Alive Social History Tobacco Use Types Packs/Day Years Used Date Smoking Tobacco: Former Cigarettes 0.5 10 0 06/29/2003 - 06/29/2013 Smokeless Tobacco: Never Tobacco Cessation:Counseling [...] Sign Reading Time Taken Comments Blood Pressure 126/82 09/14/2024 2:06 PM EDT Pulse - - Temperature - - Respiratory Rate - - Oxygen Saturation - - Inhaled Oxygen Concentration - - Weight 195 kg (430 lb) 09/14/2024 2:06 PM EDT Height 162.6 cm (5' 4 ) 09/14/2024 2:06 PM EDT Body Mass Index 73.81 09/14/2024 2:06 PM EDT Plan of Treatment Upcoming Encounters Date Type Department Care Team (Late st Contact Info) Description 03/13/2025 1:30 PM EDT Office Visit [facility] [address] [place] [place] [address] Juan Villar, LATHE SET UP PERSON [address] [place], [place] [id number] Health Maintenance Due Date Last Done Comments Pap Smear 2006 Cervical Cancer Screening 2015 HPV/Cotest 2015 Influenza Vaccine (#1) 2025 4, 06/13/2021, 06/20/2019, Additional history exists Insurance [employer] [place] Member Subscriber Plan / Payer (Ef fective 2022-Present) Name:Anabell Jacksonica Relation to Subscriber:Self Name:Jackson, Susi Payer ID:Not on file Group ID:[id number] Type:Not on file Address: [facility] [address] [place] [id number] Care Teams Oncology Physician Assistant Relationship Specialty Start Date End Date Elizabet Dodd DO [address] [place], [place] [id number] PCP - General Family Medicine 09/16/23 Shaylee Kendall PCP - [facility] 12/28/23 Mariia Quinteros PA [address] [place] [address] Physician Special Police Neurology 09/14/24
--- OUTSIDE RECORDS SUMMARY | 2025-03-03 12:21 | XMS_ITS | Encounter Summary ---
Author Organization [facility] Address [address] [place] [address] Care Team Providers Care Room Service Attendant Name Role Phone Elizabet Dodd DO Primary Care Provider [phone] Shaylee Kendall Unavailable Unavailable Mariia Quinteros Unavailable Reason for Visit * Reason Onset Date Comments Med Refill 02/05/2025 Encounter Details Date Type Department Care Team (Late Contact Info) Description 02/05/2025 Refill [facility] CAROL[facility] [address] [place] [address] Mariia Quinteros PA [address] [place], [place] [id number] Migraine without aura and without status migrainosus, not intractable Social History Tobacco Use Types Packs/Day Years [...] Encounters Date Type Department Care Team (Late Contact Info) Description 03/13/2025 1:30 PM EDT Office Visit [facility] [address] [place] [id number] Juan Villar, BETY [address] [place] [address] documented as of this encounter Visit Diagnoses Diagnosis Migraine without aura and without status migrainosus, not intractable documented in this encounter Care Teams Room Service Attendant Relationship Specialty Start Date End Date Elizabet Dodd DO [address] [place] [address] PCP - General Family Medicine 09/16/23 Shaylee Kendall PCP - [facility] 12/28/23 Mariia Quinteros PA [address] [place] [address] Physician Aircraft Log Clerk Neurology 09/14/24 documented as of this encounter
--- OUTSIDE RECORDS SUMMARY | 2025-03-03 12:21 | XMS_ITS | Encounter Summary ---
Author Organization [facility] Address [address] [place] [address] Care Team Providers Care Life Science Technical Officer Name Role Phone Elizabet Dodd DO Primary Care Provider [phone] Lolis Mejía RD Unavailable Unavailable Source Comments In the event this information is protected by the Federal Confidentiality of Alcohol and Drug AbusePatient Records regulations: The Federal rules restrict any use of the information to criminally investigate or prosecute any alcohol or drug abuse patient.[facility] Encounter Details Date Type Department Care Team (Late st Contact Info) Description 01/23/2025 Patient Msg General Surgery [place] [address] [place] [address] Provider, [facility] Nutrition summary Social History Tobacco Use Types Packs/Day Years Used Date Smoking Tobacco: Former Cigarettes 0.5 5 0 12/27/2008 - 12/27/2013 Smokeless Tobacco: Never Alcohol Use Standard Drinks/Week Comments Not Currently 0 (1 standard drink = 0.6 oz pur e alcohol) None since 2012 [facility] Utilities Answer Date Recorded In [...] is lower risk 4 01/15/2023 Data from: https://www.neighborhoodatlas.medicine.[facility].edu/. Last address used for calculation [...] Contact Info) Description 03/06/2025 3:00 PM EDT [facility] General Surgery BMI PSYL [address] [place] [address] Dinah Perez, PhD [address] [place] [address] 03/13/2025 3:00 PM EDT [facility] General Surgery BMI PSYL [address] [place] [address] Dinah Perez, PhD [address] [place] [address] Emotional eating 03/20/2025 3:00 PM EDT [facility] Surgery BMI [address] [place] [address] Lolis Mejía, BRENDON [address] [place] [address] Protein and Fluids documented as of this encounter Visit Diagnoses Not on filedocumented in this encounter Care Teams Life Science Technical Officer Relationship Specialty Start Date End Date Elizabet Dodd DO [address] [place] [address] PCP - General Family Medicine 04/16/22 Lolis Mejía RD [address] [place] [address] Nutrition 02/07/25 documented as of this encounter
--- OUTSIDE RECORDS SUMMARY | 2025-03-03 12:21 | XMS_ITS | Encounter Summary ---
Author Organization [facility] Address [address] [place] [address] Care Team Providers Care Automotive Brake Adjuster Name Role Phone WestElizabet gandara DO Primary Care Provider [phone] Lolis Mejía RD Unavailable Unavailable Source Comments [...] 12/06/2024 Get Medical Advice General Surgery [address] [place] [address] Amina Light MD [address] [place] [address] Follow up Social History Tobacco Use Types Packs/Day Years Used Date Smoking Tobacco: Former Cigarettes 0.5 5 0 12/27/2008 - 12/27/2013 Smokeless Tobacco: Never Alcohol Use Standard Drinks/Week Comments Not Currently 0 (1 standard drink = 0.6 oz pur e alcohol) None since 2012 [facility] Utilities Answer Date Recorded In the [...] Assessment Author No 08/11/2023 12:43 PM Kira Sancehz RN * Are you blind or do [...] Contact Info) Description 03/06/2025 3:00 PM EDT [facility] Surgery BMI PSYL [address] [place] [address] Dinah Perez, PhD [address] [place] [address] 03/13/2025 3:00 PM EDT [facility] Surgery BMI PSYL [address] [place] [address] Dinah Perez, PhD [address] [place] [address] Emotional eating 03/20/2025 3:00 PM EDT [facility] Surgery BMI [address] [place] [address] Lolis Mejía, RD [address] [place] [address] Protein and Fluids documented as of this encounter Visit Diagnoses Not on filedocumented in this encounter Care Teams Automotive Brake Adjuster Relationship Specialty Start Date End Date Elizabet Dodd DO [address] [place] [address] PCP - General Family Medicine 04/16/22 Lolis Mejía RD [address] [place] [address] [facility] 02/07/25 documented as of this encounter
--- OUTSIDE RECORDS SUMMARY | 2025-03-03 12:21 | XMS_ITS | Encounter Summary ---
Author Organization [facility] Address [address] [place] [address] Care Team Providers Care Nc Machinist Name Role Phone LucasGeneva whitaker Viviane ALANIZ Primary Care Provider [phone] Elizabet Dodd DO Primary Care Provider [phone] Lolis Mejía RD Unavailable Unavailable Source Comments In the event this information is protected by the Federal Confidentiality of Alcohol and Drug AbusePatient Records regulations: The Federal rules restrict any use of the information to criminally investigate or prosecute any alcohol or drug abuse patient.[facility] Encounter Details Date Type Department Care Team (Late st Contact Info) Description 12/05/2021 Patient Msg Pre Anesthesia [address] [place], [place] [phone] Melissa Olivas PA-C [address] [place] [address] Pre-anesthesia Instructions Social History Tobacco [...] N ot on file 12/05/2021 Data from: https://www.neighborhoodatlas.medicine.[facility]/. Last address used for calculation [address] 12/05/2021 Comments No Sex and Gender [...] Contact Info) Description 03/06/2025 3:00 PM EDT [facility] BMI PSYL [address] [place] [address] Dinah Perez, PhD [address] [place] [address] 03/13/2025 3:00 PM EDT [facility] BMI PSYL [address] [place] [address] Dinah Perez, PhD [address] [place] [address] Emotional eating 03/20/2025 3:00 PM EDT [facility] BMI [address] [place] [address] Lolis Mejía RD [address] [place] [address] Protein and Fluids documented as of this encounter Visit Diagnoses Not on filedocumented in this encounter Care Teams Nc Machinist Relationship Specialty Start Date End Date Geneva Estrada, MAINTENANCE REPRESENTATIVE [address] [place] [address] PCP - General Family Medicine 10/01/11 04/15/22 Elizabet Dodd DO [address] [place] [address] PCP - General Family Medicine 04/16/22 Lolis Mejía RD [address] [place] [address] Nutrition 02/07/25 documented as of this encounter
--- OUTSIDE RECORDS SUMMARY | 2025-03-03 12:21 | XMS_ITS | Encounter Summary ---
Author Organization [facility] Address [address] [place] [address] Care Team Providers Care Housekeeping Laundry Worker Name Role Phone WestElizabet gandara DO Primary Care Provider [phone] Lolis Mejía RD Unavailable Unavailable Source Comments In the event this information is protected by the Federal Confidentiality of Alcohol and Drug AbusePatient Records regulations: The Federal rules restrict any use of the information to criminally investigate or prosecute any alcohol or drug abuse patient.[facility] Encounter Details Date Type Department Care Team (Late st Contact Info) Description 11/23/2024 Abstract BMI [facility] REJ [address] [place] [address] Amina Light MD [address] [place] [address] Social History Tobacco Use Types Packs/Day Years Used Date Smoking Tobacco: Former Cigarettes 0.5 5 0 12/27/2008 - 12/27/2013 Smokeless Tobacco: Never Alcohol Use Standard Drinks/Week Comments Not Currently 0 (1 standard drink = 0.6 oz pur e alcohol) None since 2012 [facility] Utilities Answer Date Recorded In [...] is lower risk 4 01/15/2023 Data from: https://www.neighborhoodatlas.medicine.[facility].edu/. Last address used for calculation [address] [...] EDT [facility] Surgery BMI PSYL [address] [place] [address] Dinah Perez, PhD [address] [place] [address] 03/13/2025 3:00 PM EDT [facility] BMI PSYL [address] [place] [address] Dinah Perez, PhD [address] [place] [address] Emotional eating 03/20/2025 3:00 PM EDT [facility] BMI [address] [place] [address] Lolis Mejía, RD [address] [place] [address] Protein and Fluids documented as of this encounter Visit Diagnoses Not on filedocumented in this encounter Care Teams Housekeeping Laundry Worker Relationship Specialty Start Date End Date Elizabet Dodd DO [address] [place] [address] PCP - General Family Medicine 04/16/22 Lolis Mejía RD [address] [place] [address] Nutrition 02/07/25 documented as of this encounter
--- OUTSIDE RECORDS SUMMARY | 2025-03-03 12:21 | XMS_ITS | Encounter Summary ---
Author Organization [facility] Address [address] [place] [address] Care Team Providers Care Exchange Floor Manager Name Role Phone Elizabet Dodd DO Primary Care Provider [phone] Lolis Mejía RD Unavailable Unavailable Source Comments In the event this information is protected by the Federal Confidentiality of Alcohol and Drug AbusePatient Records regulations: The Federal rules restrict any use of the information to criminally investigate or prosecute any alcohol or drug abuse patient.[facility] Encounter Details Date Type Department Care Team (Late st Contact Info) Description 02/06/2025 Patient Msg General Surgery BMI [address] [place] [address] Provider, Ccf Nutrition summary Social History Tobacco Use Types Packs/Day Years Used Date Smoking Tobacco: Former Cigarettes 0.5 5 0 12/27/2008 - 12/27/2013 Smokeless Tobacco: Never Alcohol Use Standard Drinks/Week Comments Not Currently 0 (1 standard drink = 0.6 oz pur e alcohol) None since 2012 [facility] Utilities Answer Date Recorded In the [...] is lower risk 4 01/15/2023 Data from: https://www.neighborhoodatlas.medicine.[facility].edu/. Last address used for calculation [...] Contact Info) Description 03/06/2025 3:00 PM EDT [facility] General Surgery BMI PSYL [address] [place] [address] Dinah Perez, PhD [address] [place] [address] 03/13/2025 3:00 PM EDT [facility] General Surgery BMI PSYL [address] [place] [address] Dinah Perez, PhD [address] [place] [address] Emotional eating 03/20/2025 3:00 PM EDT [facility] Surgery BMI [address] [place] [address] Lolis Mejía, BRENDON [address] [place] [address] Protein and Fluids documented as of this encounter Visit Diagnoses Not on filedocumented in this encounter Care Teams Exchange Floor Manager Relationship Specialty Start Date End Date Elizabet Dodd DO [address] [place] [address] PCP - General Family Medicine 04/16/22 Lolis Mejía RD [address] [place] [address] Nutrition 02/07/25 documented as of this encounter
--- OUTSIDE RECORDS SUMMARY | 2025-03-03 12:21 | XMS_ITS | Encounter Summary ---
Author Organization [facility] Address [address] [place] [address] Care Team Providers Care Job Coach/Job Developer Name Role Phone Elizabet Dodd DO Primary Care Provider [phone] Lolis Mejía RD Unavailable Unavailable Source Comments In the event this information is protected by the Federal Confidentiality of Alcohol and Drug AbusePatient Records regulations: The Federal rules restrict any use of the information to criminally investigate or prosecute any alcohol or drug abuse patient.[facility] Encounter Details Date Type Department Care Team (Late st Contact Info) Description 01/09/2025 Patient Msg General Surgery BMI PSYL [address] [place], [place] [id number] iDnah Perez, PhD [address] [place] [id number] Mindful eating exercise in Reboot on Thursday [...] place to sleep or slept in a penitentiary (including now)? No 08/05/2023 Area Deprivation Index Answer Date Wesley rded National Score (1-100), lower number is lower ri sk 64 01/15/2023 State Score (1-10), lower number is lower risk 4 01/15/2023 Data from: https://www.neighborhoodatlas.medicine.[facility].edu/. Last address used for calculation [...] Info) Description 03/06/2025 3:[address] [facility] Surgery BMI PSYL [address] [place] [address] Dinah Perez, PhD [address] [place] [address] 03/13/2025 3:00 PM EDT [facility] BMI PSYL [address] [place] [address] Dinah Perez, PhD [address] [place] [address] Emotional eating 03/20/2025 3:[address] [facility] Surgery BMI [address] [place] [address] Lolis Mejía, RD [address] [place] [address] Protein and Fluids documented as of this encounter Visit Diagnoses Not on filedocumented in this encounter Care Teams Job Coach/Job Developer Relationship Specialty Start Date End Date Elizabet oDdd DO [address] [place] [address] PCP - General Family Medicine 04/16/22 Lolis Mejía RD [address] [place] [address] Nutrition 02/07/25 documented as of this encounter
--- OUTSIDE RECORDS SUMMARY | 2025-03-03 12:21 | XMS_ITS | Encounter Summary ---
Author Organization [facility] Address [address] [place] [address] Care Team Providers Care Fiber Glass Worker Name Role Phone Elizabet Dodd DO Primary Care Provider [phone] Shaylee Kendall Unavailable Unavailable Mariia Quinteros Unavailable Encounter Details Date Type Department Care Team (Late Contact Info) Description 07/07/2024 Abstract [facility] [address] [place] [address] Jamie Harley DO [address] Antonella Saeed, [facility]11 Social History Tobacco Use Types Packs/Day [...] Office Visit [facility] [address] [place] [address] Juan Villar NP [address] [place], [place] [id number] documented as of this encounter Visit Diagnoses Not on filedocumented in this encounter Care Teams Fiber Glass Worker Relationship Specialty Start Date End Date Elizabet Dodd DO [address] [place] [address] PCP - General Family Medicine 09/16/23 Shaylee Kendall PCP - [facility] [place] [facility] 12/28/23 Mariia Quinteros PA [address] [facility] [address] [place] [address] Physician Manager Of Revenue Neurology 09/14/24 documented as of this encounter
--- OUTSIDE RECORDS SUMMARY | 2025-03-03 12:21 | XMS_ITS | Encounter Summary ---
Author Organization [facility] Address [address] [place] [address] Care Team Providers Care Tabulating Machine Mechanic Name Role Phone Elizabet Dodd DO Primary Care Provider [phone] Lolis Mejía RD Unavailable Unavailable Source Comments In the event this information is protected by the Federal Confidentiality of Alcohol and Drug AbusePatient Records regulations: The Federal rules restrict any use of the information to criminally investigate or prosecute any alcohol or drug abuse patient.[facility] Encounter Details Date Type Department Care Team (Late st Contact Info) Description 08/08/2024 Patient Msg BMI [facility] REJ [address] [facility] [address] [place], [place] [id number] Provider, [facility] Nutrition Summary Social History Tobacco Use Types Packs/Day Years Used Date Smoking Tobacco: Former Cigarettes 0.5 5 0 12/27/2008 - 12/27/2013 Smokeless Tobacco: Never Alcohol Use Standard Drinks/Week Comments Not Currently 0 (1 standard drink = 0.6 oz pur e alcohol) None since 2012 [facility] Utilities Answer Date Recorded In the past 12 months has e [employer], gas, oil, or water company threatened to [...] is lower risk 4 01/15/2023 Data from: https://www.neighborhoodatlas.medicine.[facility].edu/. Last address used for calculation [address] 01/15/2023 Comments No Sex and Gender [...] Contact Info) Description 03/06/2025 3:00 PM EDT [facility] Surgery BMI PSYL [address] [place] [address] Dinah Perez, PhD [address] [place] [address] 03/13/2025 3:00 PM EDT [facility] Surgery BMI PSYL [address] [place] [address] Dinah Perez, PhD [address] [place] [address] Emotional eating 03/20/2025 3:00 PM EDT [facility] Surgery BMI [address] [place], [place] [id number] Lolis Mejía, RD [address] [place] [address] Protein and Fluids documented as of this encounter Visit Diagnoses Not on filedocumented in this encounter Care Teams Tabulating Machine Mechanic Relationship Specialty Start Date End Date Elizabet Dodd DO [address] [place] [address] PCP - General Family Medicine 04/16/22 Lolis Mejía RD [address] [place] [address] Nutrition 02/07/25 documented as of this encounter
--- OUTSIDE RECORDS SUMMARY | 2025-03-03 12:21 | XMS_ITS | Encounter Summary ---
Author Organization [facility] Address [address] [place] [address] Care Team Providers Care Branch Examiner Name Role Phone Elizabet Dodd DO Primary Care Provider [phone] Lolis Mejía RD Unavailable Unavailable Source Comments In the event this information is protected by the Federal Confidentiality of Alcohol and Drug AbusePatient Records regulations: The Federal rules restrict any use of the information to criminally investigate or prosecute any alcohol or drug abuse patient.[facility] Encounter Details Date Type Department Care Team (Late st Contact Info) Description 12/21/2024 Patient Msg General Surgery BMI PSYL [address] [place], [place] [id number] Dinah Perez, PhD [address] [place] [id number] Reboot starting next week! Social History Tobacco Use Types Packs/Day Years Used Date Smoking Tobacco: Former Cigarettes 0.5 5 0 12/27/2008 - 12/27/2013 Smokeless Tobacco: Never Alcohol Use Standard Drinks/Week Comments Not Currently 0 (1 standard drink = 0.6 oz pur e alcohol) None since 2012 [facility] Utilities Answer Date Recorded In [...] Contact Info) Description 03/06/2025 3:00 PM EDT [facility] Surgery BMI PSYL [address] [place] [address] Dinah Perez, PhD [address] [place] [address] 03/13/2025 3:00 PM EDT [facility] Surgery BMI PSYL [address] [place] [address] Dinah Perez, PhD [address] [place] [address] Emotional eating 03/20/2025 3:00 PM EDT [facility] Surgery BMI [address] [place] [address] Lolis Mejía, RD [address] [place] [address] Protein and Fluids documented as of this encounter Visit Diagnoses Not on filedocumented in this encounter Care Teams Branch Examiner Relationship Specialty Start Date End Date Elizabet Dodd DO [address] [place] [address] PCP - General Family Medicine 04/16/22 Lolis Mejía RD [address] [place] [address] [facility] 02/07/25 documented as of this encounter
--- OUTSIDE RECORDS SUMMARY | 2025-03-03 12:21 | XMS_ITS | Encounter Summary ---
Author Organization [facility] Address [address] [place] [address] Care Team Providers Care Alternative Medicine Practitioner Name Role Phone Elizabet Dodd DO Primary Care Provider [phone] Lolis Mejía RD Unavailable Unavailable Source Comments In the event this information is protected by the Federal Confidentiality of Alcohol and Drug AbusePatient Records regulations: The Federal rules restrict any use of the information to criminally investigate or prosecute any alcohol or drug abuse patient.[facility] Encounter Details Date Type Department Care Team (Late st Contact Info) Description 08/31/2023 Patient Msg General Surgery [address] [place] [address] Provider, Ccf Nutrition Summary Social History Tobacco Use Types Packs/Day Years Used Date Smoking Tobacco: Former Cigarettes 0.5 5 0 12/27/2008 - 12/27/2013 Smokeless Tobacco: Never Alcohol Use Standard Drinks/Week Comments Not Currently 0 (1 standard drink = 0.6 oz pur e alcohol) None since 2012 [facility] Utilities Answer Date Recorded In [...] lower risk 4 01/15/2023 Data from: https://www.neighborhoodatlas.medicine.[facility].edu/. Last address used for calculation [address] [...] Contact Info) Description 03/06/2025 3:00 PM EDT [facility] General Surgery BMI PSYL [address] [place] [address] Dinah Perez, PhD [address] [place] [address] 03/13/2025 3:00 PM EDT [facility] General Surgery BMI PSYL [address] [place] [address] Dinah Perez, PhD [address] [place] [address] Emotional eating 03/20/2025 3:00 PM EDT [facility] Surgery BMI [address] [place] [address] Lolis Mejía, BRENDON [address] [place] [address] Protein and Fluids documented as of this encounter Visit Diagnoses Not on filedocumented in this encounter Care Teams Alternative Medicine Practitioner Relationship Specialty Start Date End Date Elizabet Dodd DO [address] [place] [address] PCP - General Family Medicine 04/16/22 Lolis Mejía RD [address] [place] [address] Nutrition 02/07/25 documented as of this encounter
--- OUTSIDE RECORDS SUMMARY | 2025-03-03 12:21 | XMS_ITS | Encounter Summary ---
Author Organization [facility] Address [address] [place] [address] Care Team Providers Care 1St Pressman On Web Press Name Role Phone WestElizabet gandara DO Primary Care Provider [phone] Lolis Mejía RD Unavailable Unavailable Source Comments In the event this information is protected by the Federal Confidentiality of Alcohol and Drug AbusePatient Records regulations: The Federal rules restrict any use of the information to criminally investigate or prosecute any alcohol or drug abuse patient.[facility] Encounter Details Date Type Department Care Team (Late st Contact Info) Description 11/11/2024 Get Medical Advice [facility] REJ [address] [place], [place] [id number] Amina Light MD [address] [place] [address] Medication Social History Tobacco Use Types Packs/Day Years Used Date Smoking Tobacco: Former Cigarettes 0.5 5 0 12/27/2008 - 12/27/2013 Smokeless Tobacco: Never Alcohol Use Standard Drinks/Week Comments Not Currently 0 (1 standard drink = 0.6 oz pur e alcohol) None since 2012 [facility] Utilities Answer Date Recorded In the [...] Contact Info) Description 03/06/2025 3:00 PM EDT [facility] Surgery BMI PSYL [address] [place] [address] Dinah Perez, PhD [address] [place] [address] 03/13/2025 3:00 PM EDT [facility] BMI PSYL [address] [place] [address] Dinah Perez, PhD [address] [place] [address] Emotional eating 03/20/2025 3:00 PM EDT [facility] Surgery BMI [address] [place] [address] Lolis Mejía, RD [address] [place] [address] Protein and Fluids documented as of this encounter Visit Diagnoses Not on filedocumented in this encounter Care Teams 1St Pressman On Web Press Relationship Specialty Start Date End Date Elizabet Dodd DO [address] [place] [address] PCP - General Family Medicine 04/16/22 Lolis Mejía RD [address] [place] [address] Nutrition 02/07/25 documented as of this encounter
--- OUTSIDE RECORDS SUMMARY | 2025-03-03 12:21 | XMS_ITS | Encounter Summary ---
Author Organization [facility] Address [address] [place] [address] Care Team Providers Care Mold Hoister Name Role Phone Elizabet Dodd DO Primary Care Provider [phone] Lolis Mejía RD Unavailable Unavailable Source Comments [...] Description 11/01/2024 Patient Msg Pre Anesthesia [address] [place] [address] Provider, [facility] Social History Tobacco Use Types Packs/Day Years Used Date Smoking Tobacco: Former Cigarettes 0.5 5 0 12/27/2008 - 12/27/2013 Smokeless Tobacco: Never Alcohol Use Standard Drinks/Week Comments Not Currently 0 (1 standard drink = 0.6 oz pur e alcohol) None since 2012 [facility] Utilities Answer Date Recorded In the past 12 months has e [employer], gas, oil, or water company threatened to [...] place to sleep or slept in a mcc (including now)? No 08/05/2023 Area Deprivation Index [...] Contact Info) Description 03/06/2025 3:00 PM EDT [facility] Surgery BMI PSYL [address] [place] [address] Dinah Perez, PhD [address] [place] [address] 03/13/2025 3:00 PM EDT [facility] BMI PSYL [address] [place] [address] Dinah Perez, PhD [address] [place] [address] Emotional eating 03/20/2025 3:00 PM EDT [facility] Surgery BMI [address] [place] [address] Lolis Mejía, BRENDON [address] [place] [address] Protein and Fluids documented as of this encounter Visit Diagnoses Not on filedocumented in this encounter Care Teams Mold Hoister Relationship Specialty Start Date End Date Elizabet Dodd DO [address] [place] [address] PCP - General Family Medicine 04/16/22 Lolis Mejía, BRENDON [address] [place] [address] Nutrition 02/07/25 documented as of this encounter
--- OUTSIDE RECORDS SUMMARY | 2025-03-03 12:21 | XMS_ITS | Encounter Summary ---
Author Organization [facility] Address [address] [place] [address] Care Team Providers Care Orthopaedic Nurse Name Role Phone Elizabet Dodd DO Primary Care Provider [phone] Shaylee Kendall Unavailable Unavailable Mariia Quinteros Unavailable Encounter Details Date Type Department Care Team (Late Contact Info) Description 08/01/2024 Abstract [facility] [address] [place] [address] Jamie Harley DO [address] [facility] [address] Antonella Saeed, [facility]11 Social History Tobacco Use Types Packs/Day [...] Office Visit [facility] [address] [place] [address] Juan Villar NP [address] [place] [place], [place] [id number] documented as of this encounter Visit Diagnoses Not on filedocumented in this encounter Care Teams Orthopaedic Nurse Relationship Specialty Start Date End Date Elizabet Dodd DO [address] [place] [address] PCP - General Family Medicine 09/16/23 Shaylee Kendall PCP - [facility] [place] [facility] 12/28/23 Mariia Quinteros PA [address] [facility] [address] [place] [address] Physician Implementation Director Neurology 09/14/24 documented as of this encounter
--- OUTSIDE RECORDS SUMMARY | 2025-03-03 12:21 | XMS_ITS | Encounter Summary ---
Author Organization [facility] Address [address] [place] [address] Care Team Providers Care Auto Repair Technician Name Role Phone WestElizabet gandara DO Primary Care Provider [phone] Lolis Mejía RD Unavailable Unavailable Source Comments In the event this information is protected by the Federal Confidentiality of Alcohol and Drug AbusePatient Records regulations: The Federal rules restrict any use of the information to criminally investigate or prosecute any alcohol or drug abuse patient.[facility] Encounter Details Date Type Department Care Team (Late st Contact Info) Description 04/19/2024 Get Medical Advice General Surgery [address] [place] [address] Amina Light MD [address] [place] [address] Medication Social History Tobacco Use Types Packs/Day Years Used Date Smoking Tobacco: Former Cigarettes 0.5 5 0 12/27/2008 - 12/27/2013 Smokeless Tobacco: Never Alcohol Use Standard Drinks/Week Comments Not Currently 0 (1 standard drink = 0.6 oz pur e alcohol) None since [address] [facility] Utilities Answer Date Recorded In the [...] Contact Info) Description 03/06/2025 3:00 PM EDT [facility] Surgery BMI PSYL [address] [place] [address] Dinah Perez, PhD [address] [place] [address] 03/13/2025 3:00 PM EDT [facility] BMI PSYL [address] [place] [address] Dinah Perez, PhD [address] [place] [address] Emotional eating 03/20/2025 3:00 PM EDT [facility] BMI [address] [place] [address] Lolis Meíja, RD [address] [place] [address] Protein and Fluids documented as of this encounter Visit Diagnoses Not on filedocumented in this encounter Care Teams Auto Repair Technician Relationship Specialty Start Date End Date Elizabet Dodd DO [address] [place] [address] PCP - General Family Medicine 04/16/22 Lolis Mejía RD [address] [place] [address] [facility] 02/07/25 documented as of this encounter
--- OUTSIDE RECORDS SUMMARY | 2025-03-03 12:21 | XMS_ITS | Encounter Summary ---
Author Organization [facility] Address [address] [place] [address] Care Team Providers Care Museum Host/Hostess Name Role Phone WestElizabet gandara DO Primary Care Provider [phone] Lolis Mejía RD Unavailable Unavailable Source Comments In the event this information is protected by the Federal Confidentiality of Alcohol and Drug AbusePatient Records regulations: The Federal rules restrict any use of the information to criminally investigate or prosecute any alcohol or drug abuse patient.[facility] Encounter Details Date Type Department Care Team (Late st Contact Info) Description 05/04/2024 Get Medical Advice General Surgery [address] [place] [address] Amina Light MD [address] [place] [address] Medication question Social History Tobacco Use Types Packs/Day Years Used Date Smoking Tobacco: Former Cigarettes 0.5 5 0 12/27/2008 - 12/27/2013 Smokeless Tobacco: Never Alcohol Use Standard Drinks/Week Comments Not Currently 0 (1 standard drink = 0.6 oz pur e alcohol) None since 2012 [facility] Utilities Answer Date Recorded In the [...] Contact Info) Description 03/06/2025 3:00 PM EDT [facility] Surgery BMI PSYL [address] [place] [address] Dinah Perez, PhD [address] [place] [address] 03/13/2025 3:00 PM EDT [facility] Surgery BMI PSYL [address] [place] [address] Dinah Perez, PhD [address] [place] [address] Emotional eating 03/20/2025 3:00 PM EDT [facility] Surgery BMI [address] [place] [address] Lolis Mejía, RD [address] [place] [address] Protein and Fluids documented as of this encounter Visit Diagnoses Not on filedocumented in this encounter Care Teams Museum Host/Hostess Relationship Specialty Start Date End Date Elizabet Dodd DO [address] [place] [address] PCP - General Family Medicine 04/16/22 Lolis Mejía RD [address] [place] [address] [facility] 02/07/25 documented as of this encounter
--- OUTSIDE RECORDS SUMMARY | 2025-03-03 12:21 | XMS_ITS | Encounter Summary ---
Author Organization [facility] Address [address] [place] [address] Care Team Providers Care Material Handling Supervisor Name Role Phone Elizabet Dodd DO Primary Care Provider [phone] Lolis Mejía RD Unavailable Unavailable Source Comments In the event this information is protected by the Federal Confidentiality of Alcohol and Drug AbusePatient Records regulations: The Federal rules restrict any use of the information to criminally investigate or prosecute any alcohol or drug abuse patient.[facility] Encounter Details Date Type Department Care Team (Late st Contact Info) Description 11/11/2024 Patient Msg Pre Anesthesia [address] [place] [address] Provider, Lin Pre-Anesthesia Consult Clinic appointment (REQUIRED) Social History Tobacco Use Types Packs/Day Years Used Date Smoking Tobacco: Former Cigarettes 0.5 5 0 12/27/2008 - 12/27/2013 Smokeless Tobacco: Never Alcohol Use Standard Drinks/Week Comments Not Currently 0 (1 standard drink = 0.6 oz pur e alcohol) None since 2012 [facility] Utilities Answer Date Recorded In the past 12 months has TabbedOut, gas, oil, or water S B E threatened to shut off services in your [...] is lower risk 4 01/15/2023 Data from: https://www.neighborhoodatlas.medicine.[facility].edu/. Last address used for calculation [...] Contact Info) Description 03/06/2025 3:00 PM EDT [facility] Surgery BMI PSYL [address] [place] [address] Dinah Perez, PhD [address] [place] [address] 03/13/2025 3:00 PM EDT [facility] BMI PSYL [address] [place] [address] Dinah Perez, PhD [address] [place] [address] Emotional eating 03/20/2025 3:00 PM EDT [facility] Surgery BMI [address] [place] [address] Lolis Mejía, RD [address] [place] [address] Protein and Fluids documented as of this encounter Visit Diagnoses Not on filedocumented in this encounter Care Teams Material Handling Supervisor Relationship Specialty Start Date End Date Elizabet Dodd DO [address] [place] [address] PCP - General Family Medicine 04/16/22 Lolis Mejía, BRENDON [address] [place] [address] Nutrition 02/07/25 documented as of this encounter
--- OUTSIDE RECORDS SUMMARY | 2025-03-03 12:21 | XMS_ITS | Encounter Summary ---
Author Organization [facility] Address [address] [place] [address] Care Team Providers Care Shop Tailor Name Role Phone LucasGeneva whitaker Viviane ALANIZ Primary Care Provider [phone] Elizabet Dodd DO Primary Care Provider Lolis Mejía RD Unavailable Unavailable Source Comments In the event this information is protected by the Federal Confidentiality of Alcohol and Drug AbusePatient Records regulations: The Federal rules restrict any use of the information to criminally investigate or prosecute any alcohol or drug abuse patient.[facility] Encounter Details Date Type Department Care Team (Late st Contact Info) Description 09/20/2021 Patient Msg General Surgery [address] [place] [address] Provider, Ccf Upcoming Appointment Social [...] N ot on file 2020 Data from: https://www.neighborhoodatlas.medicine.[facility]/. Last address used for calculation [...] Contact Info) Description 03/06/2025 3:00 PM EDT [facility] General Surgery BMI PSYL [address] [place], [place] [id number] Dinah Perez, PhD [address] [place], [place] [address] 03/13/2025 3:00 PM EDT [facility] BMI PSYL [address] [place] [address] Dinah Perez, PhD [address] [place] [address] Emotional eating 03/20/2025 3:00 PM EDT [facility] BMI [address] [place] [address] Lolis Mejía RD [address] [place] [address] Protein and Fluids documented as of this encounter Visit Diagnoses Not on filedocumented in this encounter Care Teams Shop Tailor Relationship Specialty Start Date End Date Geneva Estrada, ELECTRONIC RESOURCES LIBRARIAN [address] [place] [address] PCP - General Family Medicine 10/01/11 04/15/22 Elizabet Dodd DO [address] [place] [address] PCP - General Family Medicine 04/16/22 Lolis Mejía RD [address] [facility] [place] [address] Nutrition 02/07/25 documented as of this encounter
--- OUTSIDE RECORDS SUMMARY | 2025-03-03 12:21 | XMS_ITS | Encounter Summary ---
Author Organization [facility] Address [address] [place] [address] Care Team Providers Care Home Health Specialist Name Role Phone WestElizabet gandara DO Primary Care Provider [phone] Lolis Mejía RD Unavailable Unavailable Source Comments In the event this information is protected by the Federal Confidentiality of Alcohol and Drug AbusePatient Records regulations: The Federal rules restrict any use of the information to criminally investigate or prosecute any alcohol or drug abuse patient.[facility] Encounter Details Date Type Department Care Team (Late st Contact Info) Description 11/01/2024 Get Medical Advice [facility] REJ [address] [place], [place] [id number] Amina Light MD [address] [place] [address] Medication question Social History Tobacco Use Types Packs/Day Years Used Date Smoking Tobacco: Former Cigarettes 0.5 5 0 12/27/2008 - 12/27/2013 Smokeless Tobacco: Never Alcohol Use Standard Drinks/Week Comments Not Currently 0 (1 standard drink = 0.6 oz pur e alcohol) None since 2012 [facility] Utilities Answer Date Recorded In the [...] is lower risk 4 01/15/2023 Data from: https://www.neighborhoodatlas.medicine.[facility].edu/. Last address used for calculation [address] [...] Contact Info) Description 03/06/2025 3:00 PM EDT [facility] Surgery BMI PSYL [address] [place] [address] Dinah Perez, PhD [address] [place] [address] 03/13/2025 3:00 PM EDT [facility] BMI PSYL [address]104 [place] [address] Dinah Perez, PhD [address] [place] [address] Emotional eating 03/20/2025 3:00 PM EDT [facility] Surgery BMI [address] [place] [address] Lolis Mejía, RD [address] [place] [address] Protein and Fluids documented as of this encounter Visit Diagnoses Not on filedocumented in this encounter Care Teams Home Health Specialist Relationship Specialty Start Date End Date Elizabet Dodd DO [address] [place] [address] PCP - General Family Medicine 04/16/22 Lolis Mejía RD [address] [place] [address] Nutrition 02/07/25 documented as of this encounter
--- OUTSIDE RECORDS SUMMARY | 2025-03-03 12:21 | XMS_ITS | Encounter Summary ---
Author Organization [facility] Address [address] [place] [address] Care Team Providers Care Lingo Cleaner Name Role Phone Elizabet Dodd DO Primary Care Provider [phone] Lolis Mejía RD Unavailable Unavailable Source Comments [...] Info) Description 07/18/2024 Patient Msg General Surgery [address] [place] [address] Provider, Ccf EGD Social History Tobacco Use Types Packs/Day Years Used Date Smoking Tobacco: Former Cigarettes 0.5 5 0 12/27/2008 - 12/27/2013 Smokeless Tobacco: Never Alcohol Use Standard Drinks/Week Comments Not Currently 0 (1 standard drink = 0.6 oz pur e alcohol) None since 2012 [facility] Utilities Answer Date Recorded In the [...] is lower risk 4 01/15/2023 Data from: https://www.neighborhoodatlas.medicine.[facility].edu/. Last address used for calculation [address] 01/15/2023 Comments No Sex and Gender [...] Contact Info) Description 03/06/2025 3:00 PM EDT [facility] Surgery BMI PSYL [address] [place] [address] Dinah Perez, PhD [address] [place] [address] 03/13/2025 3:00 PM EDT [facility] Surgery BMI PSYL [address] [place] [address] Dinah Perez, PhD [address] [place] [address] Emotional eating 03/20/2025 3:00 PM EDT [facility] Surgery BMI [address] [place], [place] [address] Lolis Mejía, RD [address] [place] [address] Protein and Fluids documented as of this encounter Visit Diagnoses Not on filedocumented in this encounter Care Teams Lingo Cleaner Relationship Specialty Start Date End Date Elizabet Dodd DO [address] [place] [address] PCP - General Family Medicine 04/16/22 Lolis Mejía RD [address] [place] [address] Nutrition 02/07/25 documented as of this encounter
--- OUTSIDE RECORDS SUMMARY | 2025-03-03 12:21 | XMS_ITS | Encounter Summary ---
Author Organization [facility] Address [address] [place] [address] Care Team Providers Care Cyber Systems Operations Specialist Name Role Phone Elizabet Dodd DO Primary Care Provider [phone] Lolis Mejía RD Unavailable Unavailable Source Comments In the event this information is protected by the Federal Confidentiality of Alcohol and Drug AbusePatient Records regulations: The Federal rules restrict any use of the information to criminally investigate or prosecute any alcohol or drug abuse patient.[facility] Encounter Details Date Type Department Care Team (Late st Contact Info) Description 08/19/2023 Patient Msg BMI [facility] REJ [address] [facility] [address] [place], [place] [id number] Provider, Ccf Nutrition Summary Social History Tobacco [...] is lower risk 4 01/15/2023 Data from: https://www.neighborhoodatlas.medicine.[facility].edu/. Last address used for calculation [address] 01/15/2023 Comments No Sex and Gender [...] Contact Info) Description 03/06/2025 3:00 PM EDT [facility] Surgery BMI PSYL [address] [place] [address] Dinah Perez, PhD [address] [place] [address] 03/13/2025 3:00 PM EDT [facility] Surgery BMI PSYL [address] [place] [address] Dinah Perez, PhD [address] [place] [address] Emotional eating 03/20/2025 3:00 PM EDT [facility] Surgery BMI [address] [place], [place] [address] Lolis Mejía, RD [address] [place] [address] Protein and Fluids documented as of this encounter Visit Diagnoses Not on filedocumented in this encounter Care Teams Cyber Systems Operations Specialist Relationship Specialty Start Date End Date Elizabet Dodd DO [address] [place] [address] PCP - General Family Medicine 04/16/22 Lolis Mejía RD [address] [place] [address] Nutrition 02/07/25 documented as of this encounter
--- OUTSIDE RECORDS SUMMARY | 2025-03-03 12:21 | XMS_ITS | Encounter Summary ---
Author Organization [facility] Address [address] [place] [address] Care Team Providers Care Analyst Sales Name Role Phone Elizabet Dodd DO Primary Care Provider [phone] Shaylee Kendall Unavailable Unavailable Mariia Quinteros Unavailable Encounter Details Date Type Department Care Team (Late Contact Info) Description 07/21/2024 Abstract [facility] [address] [place] [address] Jamie Harley DO [address] Antonella Saeed, [facility] Social History Tobacco Use Types Packs/Day [...] Office Visit [facility] [address] [place] [address] Juan Villar NP [address] [place], [place] [id number] documented as of this encounter Visit Diagnoses Not on filedocumented in this encounter Care Teams Analyst Sales Relationship Specialty Start Date End Date Elizabet Dodd DO [address] [place] [address] PCP - General Family Medicine 09/16/23 Shaylee Kendall PCP - [facility] 12/28/23 Mariia Quinteros PA [address] [facility] [address] [place] [address] Physician Beam Dyer Recessed Vat Neurology 09/14/24 documented as of this encounter
--- OUTSIDE RECORDS SUMMARY | 2025-03-03 12:21 | XMS_ITS | Clinical Summary ---
Author Organization [facility] Address [address], [address] [place] [address] Care Team Providers Care Mortgage Loan Closer Name Role Phone WestElizabet gandara Primary Care Provider [phone] Allergies Active Allergy Reactions Criticality Noted Date [...] Plan of Treatment Not on file Insurance [employer] Advance Directives * Full Code (Latest Code Status on File) Date Activated Date Inactivated Comments 01/16/2017 11:20 PM 01/21/2017 5:23 PM Care Teams Mortgage Loan Closer Relationship Specialty Start Date End Date Elizabet Dodd DO [address] [place] [address] PCP - General Family Medicine 08/26/19
--- OUTSIDE RECORDS SUMMARY | 2025-03-03 12:21 | XMS_ITS | Encounter Summary ---
Author Organization [facility] Address [address] [place] [address] Care Team Providers Care Video Camera Operator Name Role Phone Elizabet Dodd DO Primary Care Provider [phone] Lolis Mejía RD Unavailable Unavailable Source Comments [...] Contact Info) Description 01/03/2025 Patient Msg Endocrinology [address] [place] [address] Elias Celestin, PhD [address] [place] [id number] chair exercises Social History Tobacco Use Types [...] risk 4 01/15/2023 Data from: https://www.neighborhoodatlas.medicine.[facility].edu/. Last address used for calculation [address] [...] [facility] Surgery BMI PSYL [address] [place] [address] Dinah Perez, PhD [address] [place] [address] 03/13/2025 3:00 PM EDT [facility] BMI PSYL [address] [place] [address] Dinah Perez, PhD [address] [place] [address] Emotional eating 03/20/2025 3:00 PM EDT [facility] BMI [address] [place] [address] Lolis Mejía, RD [address] [place] [address] Protein and Fluids documented as of this encounter Visit Diagnoses Not on filedocumented in this encounter Care Teams Video Camera Operator Relationship Specialty Start Date End Date Elizabet Dodd DO [address] [place] [address] PCP - General Family Medicine 04/16/22 Lolis Mejía RD [address] [place] [address] Nutrition 02/07/25 documented as of this encounter
--- OUTSIDE RECORDS SUMMARY | 2025-03-03 12:21 | XMS_ITS | Encounter Summary ---
Author Organization [facility] Address [address] [place] [address] Care Team Providers Care Management Planner Name Role Phone Elizabet Dodd DO Primary Care Provider [phone] Lolis Mejía RD Unavailable Unavailable Source Comments In the event this information is protected by the Federal Confidentiality of Alcohol and Drug AbusePatient Records regulations: The Federal rules restrict any use of the information to criminally investigate or prosecute any alcohol or drug abuse patient.[facility] Encounter Details Date Type Department Care Team (Late st Contact Info) Description 12/07/2024 Patient Msg General Surgery BMI PSYL [address] [place], [place] [id number] Dinah Perez, PhD [address] [place] [id number] Reboot opening Social History Tobacco Use Types Packs/Day Years Used Date Smoking Tobacco: Former Cigarettes 0.5 5 0 12/27/2008 - 12/27/2013 Smokeless Tobacco: Never Alcohol Use Standard Drinks/Week Comments Not Currently 0 (1 standard drink = 0.6 oz pur e alcohol) None since 2012 [facility] Utilities Answer Date Recorded In the past [...] is lower risk 4 01/15/2023 Data from: https://www.neighborhoodatlas.medicine[facility].edu/. Last address used for calculation [address] [...] Contact Info) Description 03/06/2025 3:00 PM EDT [facility] Surgery BMI PSYL [address] [place] [address] Dinah Perez, PhD [address] [place] [address] 03/13/2025 3:00 PM EDT [facility] BMI PSYL [address] [place] [address] Dinah Perez, PhD [address] [place] [address] Emotional eating 03/20/2025 3:00 PM EDT [facility] BMI [address] [place] [address] Lolis Mejía, BRENDON [address] [place] [address] Protein and Fluids documented as of this encounter Visit Diagnoses Not on filedocumented in this encounter Care Teams Management Planner Relationship Specialty Start Date End Date Elizabet Dodd DO [address] [place] [address] PCP - General Family Medicine 04/16/22 Lolis Mejía RD [address] [place] [address] Nutrition 02/07/25 documented as of this encounter
--- OUTSIDE RECORDS SUMMARY | 2025-03-03 12:21 | XMS_ITS | Encounter Summary ---
Author Organization [facility] Address [address] [place] [address] Care Team Providers Care Group Home Counselor Name Role Phone WestElizabet gandara DO Primary Care Provider [phone] Lolis Mejía RD Unavailable Unavailable Source Comments [...] 12/28/2024 Get Medical Advice General Surgery [address] [place] [address] Amina Light MD [address] [place] [address] Question regarding test results Social History Tobacco Use Types Packs/Day Years Used Date Smoking Tobacco: Former Cigarettes 0.5 5 0 12/27/2008 - 12/27/2013 Smokeless Tobacco: Never Alcohol Use Standard Drinks/Week Comments Not Currently 0 (1 standard drink = 0.6 oz pur e alcohol) None since 2012 [facility] Utilities Answer Date Recorded In the [...] is lower risk 4 01/15/2023 Data from: https://www.neighborhoodatlas.medicine.[facility].edu/. Last address used for calculation [address] [...] Contact Info) Description 03/06/2025 3:00 PM EDT [facility] Surgery BMI PSYL [address] [place] [address] Dinah Perez, PhD [address] [place] [address] 03/13/2025 3:00 PM EDT [facility] BMI PSYL [address] [place] [address] Dinah Perez, PhD [address] [place] [address] Emotional eating 03/20/2025 3:00 PM EDT [facility] Surgery BMI [address] [place] [address] Lolis Mejía, RD [address] [place] [address] Protein and Fluids documented as of this encounter Visit Diagnoses Not on filedocumented in this encounter Care Teams Group Home Counselor Relationship Specialty Start Date End Date Elizabet Dodd DO [address] [place] [address] PCP - General Family Medicine 04/16/22 Lolis Mejía RD [address] [place] [address] Nutrition 02/07/25 documented as of this encounter
--- OUTSIDE RECORDS SUMMARY | 2025-03-03 12:21 | XMS_ITS | Encounter Summary ---
Author Organization [facility] Address [address] [place] [address] Care Team Providers Care Hoop Punch And Coiler Operator Helper Name Role Phone WestElizabet gandara DO Primary Care Provider [phone] Lolis Mejía RD Unavailable Unavailable Source Comments In the event this information is protected by the Federal Confidentiality of Alcohol and Drug AbusePatient Records regulations: The Federal rules restrict any use of the information to criminally investigate or prosecute any alcohol or drug abuse patient.[facility] Reason for Visit * Reason Comments Appointment Encounter Details Date Type Department Care Team (Late st Contact Info) Description 08/08/2024 Telephone BMI [facility] REJ [address] [place], [place] [id number] Amina Light MD [address] [place] [address] Appointment Social History Tobacco Use Types Packs/Day Years Used Date Smoking Tobacco: Former Cigarettes 0.5 5 0 12/27/2008 - 12/27/2013 Smokeless Tobacco: Never Alcohol Use Standard Drinks/Week Comments Not Currently 0 (1 standard drink = 0.6 oz pur e alcohol) None since 2012 [facility] Utilities Answer Date Recorded In the [...] place to sleep or slept in a retirement (including now)? No 08/05/2023 Area Deprivation Index Answer Date Wesley rded National Score (1-100), lower number is lower ri sk 64 01/15/2023 State Score (1-10), lower number is lower risk 4 01/15/2023 Data from: https://www.neighborhoodatlas.medicine.[facility].edu/. Last address used for calculation [...] Contact Info) Description 03/06/2025 3:00 PM EDT [facility] General Surgery BMI PSYL [address] [place] [address] Dinah Perez, PhD [address] [place] [address] 03/13/2025 3:00 PM EDT [facility] BMI PSYL [address] [facility] [address] [address] Dinah Perez, PhD [address] [place] [address] Emotional eating 03/20/2025 3:00 PM EDT [facility] BMI [address] [place], [place] [address] Lolis Mejía RD [address] [place] [address] Protein and Fluids documented as of this encounter Visit Diagnoses Not on filedocumented in this encounter Care Teams Hoop Punch And Coiler Operator Helper Relationship Specialty Start Date End Date Elizabet Dodd DO [address] [place] [address] PCP - General Family Medicine 04/16/22 Lolis Mejía RD [address] [place] [address] Nutrition 02/07/25 documented as of this encounter
--- OUTSIDE RECORDS SUMMARY | 2025-03-03 12:21 | XMS_ITS | Encounter Summary ---
Author Organization [facility] Address [address] [place] [address] Care Team Providers Care Mixing Tank Operator Name Role Phone Elizabet Dodd DO Primary Care Provider Lolis Mejía RD Unavailable Unavailable Source Comments In the event this information is protected by the Federal Confidentiality of Alcohol and Drug AbusePatient Records regulations: The Federal rules restrict any use of the information to criminally investigate or prosecute any alcohol or drug abuse patient.[facility] Encounter Details Date Type Department Care Team (Late st Contact Info) Description 07/08/2024 Patient Msg BMI [facility] REJ [address] [facility] [facility] [place], [place] [id number] [place] [address] [address] [place], [place] [address] Appointment Request Social History Tobacco Use Types [...] place to sleep or slept in a care home (including now)? No 08/05/2023 Area Deprivation [...] Assessment Author No 08/11/2023 12:43 PM Kira Snachez RN * Are you blind or do [...] Contact Info) Description 03/06/2025 3:00 PM EDT [facility] Surgery BMI PSYL [address] [place] [address] Dinah Perez, PhD [address] [place] [address] 03/13/2025 3:00 PM EDT [facility] BMI PSYL [address] [place] [address] Dinah Perez, PhD [address] [place] [address] Emotional eating 03/20/2025 3:00 PM EDT [facility] Surgery BMI [address] [place] [address] Lolis Mejía, RD [address] [place] [address] Protein and Fluids documented as of this encounter Visit Diagnoses Not on filedocumented in this encounter Care Teams Mixing Tank Operator Relationship Specialty Start Date End Date Elizabet Dodd DO [address] [place] [address] PCP - General Family Medicine 04/16/22 Lolis Mejía RD [address] [place] [address] Nutrition 02/07/25 documented as of this encounter
--- OUTSIDE RECORDS SUMMARY | 2025-03-03 12:21 | XMS_ITS | Encounter Summary ---
Author Organization [facility] Address [address] [place] [address] Care Team Providers Care Investment Recovery Technician Name Role Phone WestElizabet gandara DO Primary Care Provider [phone] Lolis Mejía RD Unavailable Unavailable Source Comments [...] Contact Info) Description 01/23/2025 Results Follow-Up BMI [facility] REJ [address] [place], [place] [address] Amina Light MD [address] [place] [address] Social History Tobacco Use Types Packs/Day Years Used Date Smoking Tobacco: Former Cigarettes 0.5 5 0 12/27/2008 - 12/27/2013 Smokeless Tobacco: Never Alcohol Use Standard Drinks/Week Comments Not Currently 0 (1 standard drink = 0.6 oz pur e alcohol) None since 2012 [facility] Utilities Answer Date Recorded In the past [...] is lower risk 4 01/15/2023 Data from: https://www.neighborhoodatlas.medicine.[facility].edu/. Last address used for calculation [address] [...] EDT [facility] Surgery BMI PSYL [address] [place] [address] Dinah Perez, PhD [address] [place] [address] 03/13/2025 3:00 PM EDT [facility] Surgery BMI PSYL [address] [place] [address] Dinah Perez, PhD [address] [place] [address] Emotional eating 03/20/2025 3:00 PM EDT [facility] Surgery BMI [address] [place] [address] Lolis Mejía, RD [address] [place] [address] Protein and Fluids documented as of this encounter Visit Diagnoses Not on filedocumented in this encounter Care Teams Investment Recovery Technician Relationship Specialty Start Date End Date Elizabet Dodd DO [address] [place] [address] PCP - General Family Medicine 04/16/22 Lolis Mejía RD [address] [place] [address] Nutrition 02/07/25 documented as of this encounter
--- OUTSIDE RECORDS SUMMARY | 2025-03-03 12:21 | XMS_ITS | Encounter Summary ---
Author Organization [facility] Address [address] [place] [address] Care Team Providers Care Engineering Job Titles Name Role Phone Elizabet Dodd DO Primary Care Provider [phone] Lolis Mejía RD Unavailable Unavailable Source Comments [...] Info) Description 02/09/2025 Patient Msg Pre Anesthesia [address] [place] [address] Provider, Ccf PRE OP APPOINTMENT NEEDED Social History Tobacco Use Types Packs/Day Years Used Date Smoking Tobacco: Former Cigarettes 0.5 5 0 12/27/2008 - 12/27/2013 Smokeless Tobacco: Never Alcohol Use Standard Drinks/Week Comments Not Currently 0 (1 standard drink = 0.6 oz pur e alcohol) None since 2012 [facility] Utilities Answer Date Recorded In the past 12 months has [employer], gas, oil, or water company threatened to [...] lower risk 4 01/15/2023 Data from: https://www.neighborhoodatlas.medicine.[facility].edu/. Last address used for calculation [address] 01/15/2023 Comments No Sex and Gender Information [...] Contact Info) Description 03/06/2025 3:00 PM EDT [facility] BMI PSYL [address] [place] [address] Dinah Perez, PhD [address] [place] [address] 03/13/2025 3:00 PM EDT [facility] BMI PSYL [address] [place] [address] Dinah Perez, PhD [address] [place] [address] Emotional eating 03/20/2025 3:00 PM EDT [facility] Surgery BMI [address] [place] [address] Lolis Mejía, BRENDON [address] [place] [address] Protein and Fluids documented as of this encounter Visit Diagnoses Not on filedocumented in this encounter Care Teams Engineering Job Titles Relationship Specialty Start Date End Date Elizabet Dodd DO [address] [place] [address] PCP - General Family Medicine 04/16/22 Lolis Mejía RD [address] [place] [address] [facility] 02/07/25 documented as of this encounter
--- OUTSIDE RECORDS SUMMARY | 2025-03-03 12:21 | XMS_ITS | Patient Health Record ---
Author Organization [employer] Address [address] [place] [address] Care Team Providers Care Commissioned Sales Associate Name Role Phone DAYNEDonald duarte Primary Care Provider Allergies Allergen (clinical drug ingredient) Drug/Non Drug [...] Insured Coverage Start Date Coverage End Date [facility] ed 22. [address] [place] [address] [id number] NONE ANGELES AMANDA Self - patient is the insured zMEDICAID [facility] after BUCKEYE-ter med 22 [address] [place] [address] [id number] ANGELES AMANDA Self - patient is the insured Medical (General) History Medical History History ICD Code LBP Bipolar Depression Surgical History Surgery Date(Month/Year) cholecystectomy 2007 carpal tunnel surg
--- OUTSIDE RECORDS SUMMARY | 2025-03-03 12:21 | XMS_ITS | Encounter Summary ---
Author Organization [facility] Address [address] [place] [address] Care Team Providers Care Sound Effects Person Name Role Phone Elizabet Dodd DO Primary Care Provider [phone] Lolis Mejía RD Unavailable Unavailable Source Comments In the event this information is protected by the Federal Confidentiality of Alcohol and Drug AbusePatient Records regulations: The Federal rules restrict any use of the information to criminally investigate or prosecute any alcohol or drug abuse patient.[facility] Encounter Details Date Type Department Care Team (Late st Contact Info) Description 02/08/2025 Patient Msg Pre Anesthesia [address] [place] [address] Provider, Ccf PRE OP APPOINTMENT NEEDED Social History Tobacco Use Types Packs/Day Years Used Date Smoking Tobacco: Former Cigarettes 0.5 5 0 12/27/2008 - 12/27/2013 Smokeless Tobacco: Never Alcohol Use Standard Drinks/Week Comments Not Currently 0 (1 standard drink = 0.6 oz pur e alcohol) None since 2012 [facility] Utilities Answer Date Recorded In the past 12 months has [employer], gas, oil, or water company threatened to [...] is lower risk 4 01/15/2023 Data from: https://www.neighborhoodatlas.medicine.[facility].edu/. Last address used for calculation [address] 01/15/2023 Comments No Sex and Gender Information [...] Contact Info) Description 03/06/2025 3:00 PM EDT [facility] BMI PSYL [address] [place] [address] Dinah Perez, PhD [address] [place] [address] 03/13/2025 3:00 PM EDT [facility] BMI PSYL [address] [place] [address] Dinah Perez, PhD [address] [place] [address] Emotional eating 03/20/2025 3:00 PM EDT [facility] Surgery BMI [address] [place] [address] Lolis Mejía, BRENDON [address] [place] [address] Protein and Fluids documented as of this encounter Visit Diagnoses Not on filedocumented in this encounter Care Teams Sound Effects Person Relationship Specialty Start Date End Date Elizabet Dodd DO [address] [place] [address] PCP - General Family Medicine 04/16/22 Lolis Mejía RD [address] [place] [address] [facility] 02/07/25 documented as of this encounter
--- OUTSIDE RECORDS SUMMARY | 2025-03-03 12:21 | XMS_ITS | Encounter Summary ---
Author Organization [facility] Address [address] [place] [address] Care Team Providers Care Installment Account Checker Name Role Phone Elizabet Dodd DO Primary Care Provider [phone] Lolis Mejía RD Unavailable Unavailable Source Comments In the event this information is protected by the Federal Confidentiality of Alcohol and Drug AbusePatient Records regulations: The Federal rules restrict any use of the information to criminally investigate or prosecute any alcohol or drug abuse patient.[facility] Encounter Details Date Type Department Care Team (Late st Contact Info) Description 05/05/2024 Patient Msg BMI [facility] REJ [address] [facility] [place], [place] [address] Provider, [facility] Nutrition Summary Social History Tobacco [...] is lower risk 4 01/15/2023 Data from: https://www.neighborhoodatlas.medicine.[facility].edu/. Last address used for calculation [address] 01/15/2023 Comments No Sex and Gender [...] No 08/11/2023 12:43 PM Kira Sacnhez RN * Because of a physical, mental, [...] Contact Info) Description 03/06/2025 3:00 PM EDT [facility] Surgery BMI PSYL [address] [place] [address] Dinah Perez, PhD [address] [place] [address] 03/13/2025 3:00 PM EDT [facility] Surgery BMI PSYL [address] [place] [address] Dinah Perez, PhD [address] [place] [address] Emotional eating 03/20/2025 3:00 PM EDT [facility] Surgery BMI [address] [place], [place] [address] Lolis Mejía, RD [address] [place] [address] Protein and Fluids documented as of this encounter Visit Diagnoses Not on filedocumented in this encounter Care Teams Installment Account Checker Relationship Specialty Start Date End Date Elizabet Dodd DO [address] [place] [address] PCP - General Family Medicine 04/16/22 Lolis Mejía RD [address] [place] [address] Nutrition 02/07/25 documented as of this encounter
--- OUTSIDE RECORDS SUMMARY | 2025-03-03 12:21 | XMS_ITS | Encounter Summary ---
Author Organization [facility] Address [address] [place] [address] Care Team Providers Care E Commerce Web Developer Name Role Phone WestElizabet gandara DO Primary Care Provider [phone] Lolis Mejía RD Unavailable Unavailable Source Comments In the event this information is protected by the Federal Confidentiality of Alcohol and Drug AbusePatient Records regulations: The Federal rules restrict any use of the information to criminally investigate or prosecute any alcohol or drug abuse patient.[facility] Encounter Details Date Type Department Care Team (Late st Contact Info) Description 01/02/2025 Get Medical Advice General Surgery [address] [place] [address] Amina Light MD [address] [place] [address] Question regarding a1c results Social History Tobacco Use Types Packs/Day Years Used Date Smoking Tobacco: Former Cigarettes 0.5 5 0 12/27/2008 - 12/27/2013 Smokeless Tobacco: Never Alcohol Use Standard Drinks/Week Comments Not Currently 0 (1 standard drink = 0.6 oz pur e alcohol) None since 2012 [facility] Utilities Answer Date Recorded In the past [...] to sleep or slept in a senior care (including now)? No 08/05/2023 Area Deprivation Index Answer Date Wesley rded National Score (1-100), lower number is lower ri sk 64 01/15/2023 State Score (1-10), lower number is lower risk 4 01/15/2023 Data from: https://www.neighborhoodatlas.medicine.[facility].edu/. Last address used for calculation [...] of Assessment Author No 08/11/2023 12:43 PM Kiar Sanchez RN * Do you have serious [...] Contact Info) Description 03/06/2025 3:00 PM EDT [facility] Surgery BMI PSYL [address] [place] [address] Dinah Perez, PhD [address] [place] [address] 03/13/2025 3:00 PM EDT [facility] BMI PSYL [address] [place] [address] Dinah Perez, PhD [address] [place] [address] Emotional eating 03/20/2025 3:00 PM EDT [facility] Surgery BMI [address] [place] [address] Lolis Mejía, RD [address] [place] [address] Protein and Fluids documented as of this encounter Visit Diagnoses Not on filedocumented in this encounter Care Teams E Commerce Web Developer Relationship Specialty Start Date End Date Elizabet Dodd DO [address] [place] [address] PCP - General Family Medicine 04/16/22 Lolis Mejía RD [address] [place] [address] Nutrition 02/07/25 documented as of this encounter
--- OUTSIDE RECORDS SUMMARY | 2025-03-03 12:21 | XMS_ITS | Encounter Summary ---
Author Organization [facility] Address [address] [place] [address] Care Team Providers Care Forensic Investigator Name Role Phone WestElizabet gandara DO Primary Care Provider [phone] Lolis Mejía RD Unavailable Unavailable Source Comments In the event this information is protected by the Federal Confidentiality of Alcohol and Drug AbusePatient Records regulations: The Federal rules restrict any use of the information to criminally investigate or prosecute any alcohol or drug abuse patient.[facility] Encounter Details Date Type Department Care Team (Late st Contact Info) Description 10/17/2024 Get Medical Advice [facility] REJ [address] [place], [place] [id number] Amina Light MD [address] [place] [address] Medication question Social History Tobacco Use Types Packs/Day Years Used Date Smoking Tobacco: Former Cigarettes 0.5 5 0 12/27/2008 - 12/27/2013 Smokeless Tobacco: Never Alcohol Use Standard Drinks/Week Comments Not Currently 0 (1 standard drink = 0.6 oz pur e alcohol) None since 2012 [facility] Utilities Answer Date Recorded In the [...] risk 4 01/15/2023 Data from: https://www.neighborhoodatlas.medicine.[facility].edu/. Last address used for calculation [address] [...] of Assessment Author No 08/11/2023 12:43 PM iKra Sanchez RN * Because of a physical, [...] Contact Info) Description 03/06/2025 3:00 PM EDT [facility] Surgery BMI PSYL [address] [place] [address] Dinah Perez, PhD [address] [place] [address] 03/13/2025 3:00 PM EDT [facility] BMI PSYL [address] [place] [address] Dinah Perez, PhD [address] [place] [address] Emotional eating 03/20/2025 3:00 PM EDT [facility] Surgery BMI [address] [place] [address] Lolis Mejía, RD [address] [place] [address] Protein and Fluids documented as of this encounter Visit Diagnoses Not on filedocumented in this encounter Care Teams Forensic Investigator Relationship Specialty Start Date End Date Elizabet Dodd DO [address] [place] [address] PCP - General Family Medicine 04/16/22 Lolis Mejía RD [address] [place] [address] Nutrition 02/07/25 documented as of this encounter
--- OUTSIDE RECORDS SUMMARY | 2025-03-03 12:21 | XMS_ITS | Encounter Summary ---
Author Organization [facility] Address [address] [place] [address] Care Team Providers Care Promotions Assistant Sales Marketing Name Role Phone WestElizabet gandara DO Primary Care Provider [phone] Lolis Mejía RD Unavailable Unavailable Source Comments [...] 01/10/2025 Get Medical Advice General Surgery [address] [place] [address] Amina Light MD [address] [place] [address] Mouniesha question Social History Tobacco Use Types Packs/Day Years Used Date Smoking Tobacco: Former Cigarettes 0.5 5 0 12/27/2008 - 12/27/2013 Smokeless Tobacco: Never Alcohol Use Standard Drinks/Week Comments Not Currently 0 (1 standard drink = 0.6 oz pur e alcohol) None since 2012 [facility] Utilities Answer Date Recorded In [...] place to sleep or slept in a residential (including now)? No 08/05/2023 Area Deprivation Index Answer Date Wesley rded National Score (1-100), lower number is lower ri sk 64 01/15/2023 State Score (1-10), lower number is lower risk 4 01/15/2023 Data from: https://www.neighborhoodatlas.medicine.[facility].edu/. Last address used for calculation [address] [...] 03/06/2025 3:00 PM EDT [facility] Surgery BMI PSYL [address] [place] [address] Dinah Perez, PhD [address] [place] [address] 03/13/2025 3:00 PM EDT [facility] BMI PSYL [address] [place] [address] Dinah Perez, PhD [address] [place] [address] Emotional eating 03/20/2025 3:00 PM EDT [facility] Surgery BMI [address] [place] [address] Lolis Mejía, RD [address] [place] [address] Protein and Fluids documented as of this encounter Visit Diagnoses Not on filedocumented in this encounter Care Teams Promotions Assistant Sales Marketing Relationship Specialty Start Date End Date Elizabet Dodd DO [address] [place] [address] PCP - General Family Medicine 04/16/22 Lolis Mejía RD [address] [place] [address] Nutrition 02/07/25 documented as of this encounter
[2025-03-03 12:22] VITALS: BP 155/88; PULSE 80; TEMP 35.6; O2SAT 96; BMI 67.8
--- OUTSIDE RECORDS SUMMARY | 2025-03-03 12:22 | XMS_ITS | Encounter Summary ---
Author Organization [facility] Address [address] [place] [address] Care Team Providers Care Guest Experience Specialist Name Role Phone WestElizabet gandara DO Primary Care Provider [phone] Lolis Mejía RD Unavailable Unavailable Source Comments In the event this information is protected by the Federal Confidentiality of Alcohol and Drug AbusePatient Records regulations: The Federal rules restrict any use of the information to criminally investigate or prosecute any alcohol or drug abuse patient.[facility] Encounter Details Date Type Department Care Team (Late st Contact Info) Description 11/03/2023 Patient Msg BMI [facility] REJ [address] [place], [place] [id number] Amina Light MD [address] [place] [address] Appointment Request Social History Tobacco Use Types Packs/Day Years Used Date Smoking Tobacco: Former Cigarettes 0.5 5 0 12/27/2008 - 12/27/2013 Smokeless Tobacco: Never Alcohol Use Standard Drinks/Week Comments Not Currently 0 (1 standard drink = 0.6 oz pur e alcohol) None since 2012 [facility] Utilities Answer Date Recorded In the [...] place to sleep or slept in a half-way (including now)? No 08/05/2023 Area Deprivation Index Answer Date Wesley rded National Score (1-100), lower number is lower ri sk 64 01/15/2023 State Score (1-10), lower number is lower risk 4 01/15/2023 Data from: https://www.neighborhoodatlas.medicine.[facility].edu/. Last address used for calculation [...] 08/11/2023 12:43 PM iKra Sanchez RN * Do you have difficulty [...] Contact Info) Description 03/06/2025 3:00 PM EDT [facility] Surgery BMI PSYL [address] [place] [address] Dinah Perez, PhD [address] [place] [address] 03/13/2025 3:00 PM EDT [facility] BMI PSYL [address] [place] [address] Dinah Perez, PhD [address] [place] [address] Emotional eating 03/20/2025 3:00 PM EDT [facility] Surgery BMI [address] [place] [address] Lolis Mejía, RD [address] [place] [address] Protein and Fluids documented as of this encounter Visit Diagnoses Not on filedocumented in this encounter Care Teams Guest Experience Specialist Relationship Specialty Start Date End Date Elizabet Dodd DO [address] [place] [address] PCP - General Family Medicine 04/16/22 Lolis Mejía RD [address] [place] [address] Nutrition 02/07/25 documented as of this encounter
--- OUTSIDE RECORDS SUMMARY | 2025-03-03 12:22 | XMS_ITS | Encounter Summary ---
Author Organization [facility] Address [address] [place] [address] Care Team Providers Care Oil And Gas Specialist Name Role Phone Elizabet Dodd DO Primary Care Provider [phone] Lolis Mejía RD Unavailable Unavailable Source Comments In the event this information is protected by the Federal Confidentiality of Alcohol and Drug AbusePatient Records regulations: The Federal rules restrict any use of the information to criminally investigate or prosecute any alcohol or drug abuse patient.[facility] Encounter Details Date Type Department Care Team (Late st Contact Info) Description 11/02/2023 Patient Msg General Surgery [address] [place] [address] Provider, [facility]cf Nutrition Summary Social History Tobacco Use Types Packs/Day Years Used Date Smoking Tobacco: Former Cigarettes 0.5 5 0 12/27/2008 - 12/27/2013 Smokeless Tobacco: Never Alcohol Use Standard Drinks/Week Comments Not Currently 0 (1 standard drink = 0.6 oz pur e alcohol) None since 2012 [facility] Utilities Answer Date Recorded In [...] is lower risk 4 01/15/2023 Data from: https://www.neighborhoodatlas.medicine.[facility].edu/. Last address used for calculation [address] [...] Contact Info) Description 03/06/2025 3:00 PM EDT [facility] General Surgery BMI PSYL [address] [place] [address] Dinah Perez, PhD [address] [place] [address] 03/13/2025 3:00 PM EDT [facility] General Surgery BMI PSYL [address] [place] [address] Dinah Perez, PhD [address] [place] [address] Emotional eating 03/20/2025 3:00 PM EDT [facility] Surgery BMI [address] [place] [address] Lolis Mejía, BRENDON [address] [place] [address] Protein and Fluids documented as of this encounter Visit Diagnoses Not on filedocumented in this encounter Care Teams Oil And Gas Specialist Relationship Specialty Start Date End Date Elizabet Dodd DO [address] [place] [address] PCP - General Family Medicine 04/16/22 Lolis Mejía RD [address] [place] [address] Nutrition 02/07/25 documented as of this encounter
--- OUTSIDE RECORDS SUMMARY | 2025-03-03 12:22 | XMS_ITS | Encounter Summary ---
Author Organization [facility] Address [address] [place] [address] Care Team Providers Care Real Estate Firm Manager Name Role Phone Elizabet Dodd DO Primary Care Provider [phone] Lolis Mejía RD Unavailable Unavailable Source Comments [...] Info) Description 11/04/2023 Patient Msg General Surgery [address] [place] [address] Jayshree Huffman APRN.[employer] [address] [address] [id number] vitamin K Social History Tobacco Use Types Packs/Day Years Used Date Smoking Tobacco: Former Cigarettes 0.5 5 0 12/27/2008 - 12/27/2013 Smokeless Tobacco: Never Alcohol Use Standard Drinks/Week Comments Not Currently 0 (1 standard drink = 0.6 oz pur e alcohol) None since 2012 [facility] Utilities Answer Date Recorded In [...] is lower risk 4 01/15/2023 Data from: https://www.neighborhoodatlas.medicine.[facility].edu/. Last address used for calculation [address] [...] [facility] Surgery BMI PSYL [address] [place] [address] Dinah Perez, PhD [address] [place] [address] 03/13/2025 3:00 PM EDT [facility] General Surgery BMI PSYL [address] [place] [address] Dinah Perez, PhD [address] [place] [address] Emotional eating 03/20/2025 3:00 PM EDT [facility] Surgery BMI [address] [place] [address] Lolis Mejía RD [address] [place] [address] Protein and Fluids documented as of this encounter Results * VITAMIN K (11/27/2023 12:23 PM EDT) Vitamin K 0.75 0.22 - 4.88 nmol/L 12/03/2023 7:19 PM EDT [facility] Comment: INTERPRETIVE INFORMATION: Vitamin K1, Serum Vitamin K concentration is reported as nanomoles per liter (nmol/L). To convert concentration to nanograms per milliliter (ng/mL), multiply the result by 0.45. This test was developed and its performance characteristics determined by [employer]. It has not been cleared or approved by the US Food and Drug Administration. This test was performed in a CLIA certified laboratory and is intended for clinical purposes. Performed By: [employer] [facility] [address] [place] [address] Infrastructure Solutions Architect: John Newsome MD, PhD CLIA Number: [id number] Blood BLOOD SPECIMEN / Unknown Venipuncture / Unknown 11/27/2023 12:23 PM EDT 11/27/2023 12:23 PM EDT us Jayshree Huffman SUPERVISOR FABRICATION DEPARTMENT.[employer] Final Res ult [facility] [address] [place] [address] documented in this encounter Visit Diagnoses Diagnosis High vitamin K1 level- Primary documented in this encounter Care Teams Real Estate Firm Manager Relationship Specialty Start Date End Date Elizabet Dodd DO [address] [place] [address] PCP - General Family Medicine 04/16/22 Lolis Mejía RD [address] [place] [address] Nutrition 02/07/25 documented as of this encounter
--- OUTSIDE RECORDS SUMMARY | 2025-03-03 12:22 | XMS_ITS | Encounter Summary ---
Author Organization [facility] Address [address] [place] [address] Care Team Providers Care Molder Punch Name Role Phone WestElizabet gandara DO Primary Care Provider [phone] Lolis Mejía RD Unavailable Unavailable Source Comments In the event this information is protected by the Federal Confidentiality of Alcohol and Drug AbusePatient Records regulations: The Federal rules restrict any use of the information to criminally investigate or prosecute any alcohol or drug abuse patient.[facility] Encounter Details Date Type Department Care Team (Late st Contact Info) Description 02/10/2024 Abstract BMI [facility] REJ [address] [place] [address] Amina Light MD [address] [place] [address] Social History Tobacco Use Types Packs/Day Years Used Date Smoking Tobacco: Former Cigarettes 0.5 5 0 12/27/2008 - 12/27/2013 Smokeless Tobacco: Never Alcohol Use Standard Drinks/Week Comments Not Currently 0 (1 standard drink = 0.6 oz pur e alcohol) None since 2012 [facility] Utilities Answer Date Recorded In the [...] place to sleep or slept in a usp (including now)? No 08/05/2023 Area Deprivation Index [...] Contact Info) Description 03/06/2025 3:00 PM EDT [facility] Surgery BMI PSYL [address] [place] [address] Dinah Perez, PhD [address] [place] [address] 03/13/2025 3:00 PM EDT [facility] BMI PSYL [address] [place] [address] Dinah Perez, PhD [address] [place] [address] Emotional eating 03/20/2025 3:00 PM EDT [facility] BMI [address] [place] [address] Lolis Mejía, RD [address] [place] [address] Protein and Fluids documented as of this encounter Visit Diagnoses Not on filedocumented in this encounter Care Teams Molder Punch Relationship Specialty Start Date End Date Elizabet Dodd DO [address] [place] [address] PCP - General Family Medicine 04/16/22 Lolis Mejía RD [address] [place] [address] Nutrition 02/07/25 documented as of this encounter
--- OUTSIDE RECORDS SUMMARY | 2025-03-03 12:22 | XMS_ITS | Encounter Summary ---
Author Organization [facility] Address [address] [place] [address] Care Team Providers Care Merchandise Collector Name Role Phone Elizabet Dodd DO Primary Care Provider [phone] Lolis Mejía RD Unavailable Unavailable Source Comments In the event this information is protected by the Federal Confidentiality of Alcohol and Drug AbusePatient Records regulations: The Federal rules restrict any use of the information to criminally investigate or prosecute any alcohol or drug abuse patient.[facility] Encounter Details Date Type Department Care Team (Late st Contact Info) Description 08/31/2023 Get Medical Advice General Surgery BMI [address] [place] [address] Jayshree Huffman APRN.SENIOR SOFTWARE ARCHITECT [address] [place] [address] [id number] Question about incision Social History Tobacco Use Types Packs/Day Years Used Date Smoking Tobacco: Former Cigarettes 0.5 5 0 12/27/2008 - 12/27/2013 Smokeless Tobacco: Never Alcohol Use Standard Drinks/Week Comments Not Currently 0 (1 standard drink = 0.6 oz pur e alcohol) None since 2012 [facility] Utilities Answer Date Recorded In the [...] is lower risk 4 01/15/2023 Data from: https://www.neighborhoodatlas.medicine.[facility].edu/. Last address used for calculation [...] Contact Info) Description 03/06/2025 3:00 PM EDT [facility] Surgery BMI PSYL [address] [place] [address] Dinah Perez, PhD [address] [place] [address] 03/13/2025 3:00 PM EDT [facility] Surgery BMI PSYL [address] [place] [address] Dinah Perez, PhD [address] [place] [address] Emotional eating 03/20/2025 3:00 PM EDT [facility] BMI [address] [place], [place] [id number] Lolis Mejía, RD [address] [place] [address] Protein and Fluids documented as of this encounter Visit Diagnoses Not on filedocumented in this encounter Care Teams Merchandise Collector Relationship Specialty Start Date End Date Elizabet Dodd DO [address] [place] [address] PCP - General Family Medicine 04/16/22 Lolis Mejía RD [address] [place] [address] Nutrition 02/07/25 documented as of this encounter
--- OUTSIDE RECORDS SUMMARY | 2025-03-03 12:22 | XMS_ITS | Encounter Summary ---
Author Organization [facility] Address [address] [place] [address] Care Team Providers Care Fitter Type Bar And Segment Name Role Phone Elizabet Dodd DO Primary Care Provider [phone] Lolis Mejía RD Unavailable Unavailable Source Comments In the event this information is protected by the Federal Confidentiality of Alcohol and Drug AbusePatient Records regulations: The Federal rules restrict any use of the information to criminally investigate or prosecute any alcohol or drug abuse patient.[facility] Encounter Details Date Type Department Care Team (Late st Contact Info) Description 07/21/2023 Patient Msg General Surgery [address] [place] [address] Provider, [facility] Guideline Link Social [...] 4 01/15/2023 Data from: https://www.neighborhoodatlas.medicine.[facility]/. Last address used for calculation [...] 04/01/2023 3:56 PM [place] Susi Ruffin RN * Do you have serious difficulty walking or climbing stairs? Answer Date of Assessment Author No 04/01/2023 3:56 PM EDT Susi Ruffin RN * Do you have difficulty dressing or bathing? Answer Date of Assessment Author No 04/01/2023 3:56 PM [place] Susi Ruffin RN * Because of a [...] Entry Date Author No 04/01/2023 3:56 PM Susi Burroughs RN documented in this encounter Plan of Treatment Upcoming Encounters Date Type Department Care Team (Latest Contact Info) Description 03/06/2025 3:00 PM EDT [facility] Surgery BMI PSYL [address] [place] [address] Dinah Perez, PhD [address] [place] [address] 03/13/2025 3:00 PM EDT [facility] Surgery BMI PSYL [address] [place] [address] Dinah Perez, PhD [address] [place] [address] Emotional eating 03/20/2025 3:00 PM EDT [facility] BMI [address] [place] [address] Lolis Mejía RD [address] [place] [address] Protein and Fluids documented as of this encounter Visit Diagnoses Not on filedocumented in this encounter Care Teams Fitter Type Bar And Segment Relationship Specialty Start Date End Date Elizabet Dodd DO [address] [place] [address] PCP - General Family Medicine 04/16/22 Lolis Mejía RD [address] [place] [address] Nutrition 02/07/25 documented as of this encounter
[2025-03-03 12:30] VITALS: BP 142/83; PULSE 80; TEMP 36.6; O2SAT 95; BMI 67.8
--- OUTSIDE RECORDS SUMMARY | 2025-03-03 12:33 | XMS_ITS | CCD ---
Author Organization [facility] ion [facility] Care Team Providers Care Coal Passer Name Role Phone ROSAURA ESTRADA Unavailable Unavailable HOLA ELIZABET Primary Care Unavailable CHANA THOMAS Referring Unavailable Elizabet Simental Primary Care Provider [phone] CHANA THOMAS Referring Unavailable RUMNORAHLAG, ELIZABET Primary Care Unavailable KYLAH VARGAS Admitting Unavailable KYLAH VARGAS Attending Unavailable KYLAH VARGAS Referring Unavailable HOLA, ELIZABET Primary Care Unavailable Elizabet Simental DO Primary Care Provider Rosaura Estrada CNP Primary Care Provider [place] Unavailable Celsa Argueta Unavailable Tania Blakely Unavailable Estella Nguyen Unavailable Bambi Gonzalez Unavailable Christa Tyler Unavailable Rosaura Estrada CNP Primary Care Provider [phone] Rob Garcia Unavailable LucasRosaura mauro CNP Primary Care Provider NON STAFF Primary Care Provider UnavailROBERT Jo Attending Provider Elizabet Simental Primary Care Provider [phone] Elizabet Simental Primary Care Provider [phone] DR TELLO ALFARO Attending Unavailable DOMINIC, DR JAVED Admitting [facility] Attending Unavailable Darrel Nichols Consulting Unavailable RUMSCHLAELIZABET Read Consulting Unavailable MISC, DR JAVED Attending Unavailable MISC, DR JAVED Admitting Unavailable [facility] Primary Care Unavailable HAY ., DR STEPHENS Admitting Unavailable HAY ., DR STEPHENS Attending Unavailable [facility] Primary Care Unavailable GRECHNY ., MICHELLE MCGINNIS Consulting Unavailabl e ESTELLA ALVES Consulting Unavailable GRECHNY ., MICHELLE MCGINNIS Consulting Unavailabl e BERENICE BAKER Admitting Unavailable [facility] Primary Care Unavailable BERENICE BAKER Attending Unavailable MANPREET TORRES Consulting Unavailable RAFAEL ., JARON Admitting Unavailable DENYS ., MR AGUILAR Consulting Unavailable RAFAEL ., JARON Attending Unavailable [facility] Primary Care Unavailable Linda South Unavailable Hola TRINH Elizabet Primary Care Provider Hola TRINH, Elizabet Primary Care Provider Hola TRINH, Elizabet Primary Care Provider Enoch Shaylee Unavailable Unavailable [place] Rohini MARCANO Attending [facility] Provider OTILIO JEFFERSON Referring Unavailable SERVICES, [facility] Primary Care Unava ilable OTILIO JEFFERSON Referring Un[facility] Unava ilable OTILIO JEFFERSON Attending Unavailable OTILIO JEFFERSON Referring [facility]available [facility] Primary Care Unava ilable OTILIO JEFFERSON Admitting Unavailable OTILIO JEFFERSON Attending Unavailable OTILIO JEFFERSON Referring Unavailable SERVICES, [facility] Care Unava ilable JARED DELGADO Attending Unavailable SERVICES, [facility] Unava ilable CAROLYN, OTILIO Naqvi Admitting Unavailable CAROLYN, OTILIO Naqvi Attending Unavailable OTILIO JEFFERSON Referring Unavailable SERVICES, [facility] Unava ilable JARED DELGADO Attending Unavailable SERVICES, [facility] Unava ilable SERVICES, [facility] Unava ilable SERVICES, [facility] Unava ilable LYNDON NORMAN Attending Unavailable SERVICES, [facility] Unava ilable ANGELITA SANTACRUZ Attending Unavailable PEYMAN HOLT Referring Unavailable SERVICES, [facility] Unava ilable PEYMAN HOLT Attending Unavailable PEYMAN HOLT Referring Unavailable SERVICES, [facility] Unava ilable PEYMAN HOLT Attending Unavailable PEYMAN HOLT Referring Unavailable SERVICES, [facility] Unava ilable SERVICES, [facility] Unava ilable PEYMAN HOLT Admitting Unavailable PEYMAN HOLT Attending Unavailable SERVICES, [facility] Unava ilable SERVICES, [facility] Unava ilable PEYMAN HOLT Attending Unavailable PEYMAN HOLT Referring Unavailable SERVICES, [facility] Unava ilable Ronan Clement Admitting Unavailable JAMIE HARLEY Attending Unavailable MARIIA QUINTEROS Attending Unavailable APLINGBUSHRA Attending Unavailable APLINGBUSHRA Referring Unavailable CAROLYNOTILIO MORA Attending Unavailable APLINGBUSHRA Attending Unavailable CAROLYNOTILIO MORA Attending Unavailable APLINGBUSHRA Attending Unavailable APLINGBUSHRA Attending Unavailable SHERRY CUELLAR Attending Unavailable MYERHOLTZ, ZOHRA Referring Unavailable JAMIE HARLEY Attending Unavailable PRINCE COLINDRES Attending Unavailable MYERHOLTZ, ZOHRA Referring Unavailable CUELLARSHERRY Attending Unavailable MYERHOLTZ, ZOHRA Referring Unavailable DARYL COLINDRESH Attending Unavailable MYERHOLTZ, ZOHRA Referring Unavailable JENSDARYLH Attending Unavailable MYERHOLTZ, ZOHRA Referring Unavailable JENSDARYLH Attending Unavailable MYERHOLTZ, ZOHRA Referring Unavailable APLINGBUSHRA Attending Unavailable SHERRY CUELLAR Attending Unavailable MYERHOLTZ, ZOHRA Referring Unavailable JENS PRINCE Attending Unavailable MYERHOLTZ, ZOHRA Referring Unavailable APLINGBUSHRA Attending Unavailable APLING, BUSHRA Mart Referring Unavailable APLINGBUSHRA Attending Unavailable Mariia Mendoza Unavailable Jesusita Lopez PA-C Attending Provider [phone] Jesusita Lopez Admitting Unavailable Jesusita Lopez Attending Unavailable JOE GRANDA Attending Unavailable JOE GRANDA Referring Unavailable RUMSCHLAG, ELIZABET Primary Care Unavailable Czerwony RD, Mayela A Unavailable Unavailable [place], Rohini M Admitting Unavailable [place], Rohini M Attending Unavailable Myerholtz, Zohra K Primary Care Unavailab le Myerholtz, Zohra K Primary Care Unavailab le [place], Rohini M Admitting Unavailable [place], Rohini M Attending Unavailable Myerholtz, Zohra K Primary Care Unavailab le [place], Rohini M Admitting Unavailable [place], Rohini M Attending Unavailable GORTY, AMINA A Attending Unavailable RUMSCHLAG, ELIZABET Primary Care Unavailable GORTY, AMINA A Attending Unavailable SELF Referring Unavailable RUMSCHLAG, ELIZABET Primary Care Unavailable DINAH PEREZ Attending Unavailable RUMSCHLAG, ELIZABET Primary Care Unavailable RUMSCHLAG, ELIZABET Primary Care Unavailable ESTELLA FREEMAN Attending Unavailable FRANKLYNPADINAH NOGUERA Attending Unavailable RUMSCHLAG, ELIZABET Primary Care Unavailable GORTY, AMINA A Referring Unavailable GORTY, AMINA A Attending Unavailable RUMSCHLAG, ELIZABET Primary Care Unavailable RUMSCHLAG, ELIZABET Primary Care Unavailable DINAH PEREZ Attending Unavailable GORTY, AMINA A Attending Unavailable RUMSCHLAG, ELIZABET Primary Care Unavailable KARON MONSIVAIS Attending Unavailable RUMSCHLAG, ELIZABET Primary Care Unavailable JOE GRANDA Attending Unavailable RUMSCHLAG, ELIZABET Primary Care Unavailable KARON MONSIVAIS Attending Unavailable RUMSCHLAG, ELIZABET Primary Care Unavailable RUMSCHLAG, ELIZABET Primary Care Unavailable CZERWONY, MAYELA A Attending Unavailable RUMSCHLAG, ELIZABET Primary Care Unavailable DINAH PEREZ Attending Unavailable RUMSCHLAG, ELIZABET Primary Care Unavailable CZERWONY, MAYELA A Attending Unavailable RUMSCHLAG, ELIZABET Primary Care Unavailable RUMSCHLAG, ELIZABET Primary Care Unavailable ESTELLA FREEMAN Attending Unavailable KARON MONSIVAIS Attending Unavailable RUMSCHLAG, ELIZABET Primary Care Unavailable GOODPADINAH NOGUERA Attending Unavailable RUMSCHLAG, ELIZABET Primary Care Unavailable GORTY, AMINA A Referring Unavailable RUMSCHLAG, ELIZABET Primary Care Unavailable GORTY, AMINA A Attending Unavailable RUMSCHLAG, ELIZABET Primary Care Unavailable NON STAFF Primary Care Provider UnavailGemini Heath Attending Provider Unavailable Araceli Veliz APRN Attending Provider [phone] Allergies Allergy Classification Reported Allergen(s) Allergy Type Date of Onset Reaction(s) Facility (2 sources) Adhesive Tape Propensity to adverse reactions to drug 10-11-19 17 Rash [place], [place] (9 sources) Penicillins; Translations: [PENICILLINS] Propensity to adverse reactions to drug 05-29-20 17 Hives, Rash [place], [place] (20 sources) traMADol; Translations: [Ultram TABS] Drug Allergy 08-28-19 13 Hives, rash, Itching [place], [place] (20 sources) Amoxicillin-Pot Clavulanate; Translations: [AMOXICILLIN-POT CLAVULANATE] Propensity to adverse reactions to drug 10-11-19 17 Diarrhea, Other (See Comments), GI Disturbance [place], [place] (20 sources) Cephalexin; Translations: [CEPHALEXIN] Drug Allergy 05-06-20 19 Rash, Itching [facility] (1 source) *Adhesive Tape Propensity to adverse reactions 11-10-19 07 [facility] (7 sources) Penicillins Drug Allergy 05-06-20 19 [facility] (20 sources) traMADol; Translations: [TRAMADOL HCL] Drug Allergy 03-13-20 15 Itching [facility] (20 sources) Adhes. Pkze-Kywq-Trdsezk onium; Translations: [ADHES. HJFT-WEHE-SUNTMGH ONIUM] Drug Allergy 03-13-20 15 [facility] (20 sources) Adhesive Tape-Silicones; Translations: [ADHESIVE TAPE-SILICONES] Drug Allergy 05-06-20 19 [facility] (9 sources) Amoxicillin / Clavulanate; Translations: [Augmentin TABS] Drug Allergy stomach upset GN-XDBWY-Fhumni r 206A [facility] Work Phone: (1 source) Cephalexin; Translations: [Keflex TABS] Drug Allergy [id number] r 206A IV[facility] Work Phone: (1 source) Penicillins; Translations: [Penicillins] Allergy to drug (finding) NB-UVXGB-Ibadco r 206A IV[facility] Work Phone: (20 sources) Adhesive agent; Translations: [Adhesive] Propensity to adverse reactions 11-10-19 07 Rash [facility] (8 sources) Cephalexin; Translations: [Keflex] Drug Allergy itchy [facility] (9 sources) Doxycycline Drug Allergy stomach upset Sgrouples Other (12 sources) penicillAMINE Drug Allergy 09-06-19 [facility] (12 sources) Penicillin G Drug Allergy 09-06-19 Unknown, [facility] (20 sources) Penicillins Drug Allergy 05-29-20 17 [facility] (2 sources) Amoxicillin / Clavulanate Drug Allergy 12-18-19 17 stomach upset [facility] (1 source) Penicillins Drug allergy (disorder) [facility] (1 source) traMADol Drug Allergy 08-28-19 13 [facility] (20 sources) Penicillins Drug Allergy 05-29-20 [facility] Wound Dressing Adhesive Drug Allergy 03-13-20 15 [facility] (4 sources) Amoxicillin; Translations: [amoxicillin] [facility] Clavulanate; Translations: [clavulanic acid] Drug Allergy [facility]-06-[facility] Penicillins Drug Allergy 05-06-20 19 [facility] (1 source) Cephalexin Drug Allergy 09-06-19 [facility] (1 source) penicillAMINE Drug Allergy 09-06-19 [facility] (1 source) Penicillin Drug Allergy 09-06-19 [facility] (1 source) traMADol Drug Allergy 09-06-19 [facility] Medications Current Medications Medication Drug Class(es) Dates Sig (Normalized) Sig (Original) acetaminophen 500 mg oral tablet (20 sources) Start: 08-11-2023 End: 08-15-2023 take 2 tablets by mouth every six hours acetaminophen (TYLENOL) 500 mg tablet Take 2 tablets by mouth every 6 hours for 4 days. 32 tablet 0 08/11/2023 08/15/2023 Active take 2 tablets by mo uth every six hours as needed for pain acetaminophen (TYLENOL) 325 mg tablet Ta ke 2 tablets (650 mg total) by mouth every 6 (six) hours as needed for pain. Active Comment on above: Take 650 mg by mouth as needed. Take 2 tablets by mo ut every 6 hours for 4 days. acetaminophen 325 mg / HYDROcodone bitartrate 5 mg oral tablet (6 sources) Opioid Agonist Start: 03-07-20 End: 03-12-20 24 HYDROcodone-acetamin ophen (NORCO) 5-325 mg per tablet Indications: Right ovarian cyst Take 1 tablet by mouth every 6 (six) hours as needed for pain. Max Daily Amount: 4 tablets 28 tablet 08/17/2024 Active ARIPiprazole 15 mg oral tablet (20 sources) Atypical Antipsychotic Start: 11-06-19 take 1 tablet by mouth once daily Aripiprazole 15 mg tablet Active 15 MG PO Daily September 05, 2024 12:00am Complies with drug therapy Start: 11-25-2021 take 1 tablet by claudia once daily at bedtime ARIPiprazole (ABILIFY) 10 mg tablet Take 10 mg by mouth daily at bedtime. 11/25/2021 Active Start: 04-30-2021 take 1 tablet by claudia at bedtime aripiprazole 5 MG tablet Take 5 mg by mouth at bedtime. 0 04/30/2021 Active take 3 tablets by mo ut once daily ARIPiprazole (ABILIFY) 5 mg tablet Take 3 tablets (15 mg total) by mouth nightly. Active Comment on above: Take 10 mg by mouth daily at bedtime. benzonatate 200 mg oral capsule (1 source) Non-narcotic Antitussive Start: 5 take 1 capsule by mouth three times daily as needed benzonatate (Tessalon) 200 MG capsule Take 200 mg by mouth 3 (three) times a day as needed 08/14/2024 Active biotin 10 mg oral tablet (20 sources) End: 5 biotin 10 MG tablet Take 10 mg by mouth Active busPIRone hydrochloride 30 mg oral tablet (20 sources) Start: take 1 tablet by mouth once Buspirone 30 mg tablet Active 30 MG PO Once September 05, 2024 12:00am Complies with drug therapy Start: 07-08-2023 take 1 tablet by claudia th every twelve hours busPIRone (BUSPAR) 15 mg [...] mouth 2 times daily. 0 04/25/2021 Active busPIRone (Buspa r) 30 MG tablet Take 15 mg by mouth Daily Active End: 10-20-2023 busPIRone (BUSPAR) 30 mg tab let Take 100 mg by mouth in the morning and 100 mg before bedtime. 10/20/2023 Discontinued take 1 tablet by claudia th twice [...] Take 500 mg by mouth Daily Active take 1 tablet by mouth in the mo rning calcium citrate (CALCITRATE) 200 mg (950 mg) tablet Take 1 tablet (200 mg total) by mouth in the morning. Active Calcium Citrate Active cetirizine hydrochloride 10 [...] tablet by claudia th every afternoon. cholecalciferol 1.25 mg oral capsule (20 sources) Vitamin D Start: 01-25-2025 cholecalciferol, Vitamin D3, (VITAMIN D3) 1,250 mcg (50,000 unit) cap capsule Indications: S/P biliopancreatic diversion with duodenal switch , BMI 70 and over, adult (HCC) , TONEY (obstructive sleep apnea) , Type 2 diabetes mellitus without complication, without long-term current use of insulin ([facility]) TAKE 1 CAPSULE BY MOUTH EVERY WEEK 12 capsule 1 01/25/2025 Active Start: 01-23-2025 End: 01-25-2025 cholecalciferol, vitamin D3, 1,250 mcg (50,000 unit) tab Indications: S/P biliopancreatic diversion with duodenal switch , BMI 70 and over, adult (HCC) , TONEY (obstructive sleep apnea) , Type 2 diabetes mellitus without complication, without long-term current use of insulin ([facility]) Take one pill once a week for 12 weeks 12 tablet 1 01/23/2025 01/25/2025 Discontinued Start: 11-02-2023 take 2 capsules by m outh once daily Cholecalciferol, Vitamin D3, 25 mcg (1,000 unit) cap Indications: Impaired intestinal absorption (HCC) , S/P bariatric surgery , Vitamin D deficiency Take 2 capsules by mouth once daily. 60 capsule 2 11/02/2023 Active cholecalciferol (Vitamin D-3) 1.25 MG (79140 UT) capsule Active cyclobenzaprine hydrochloride 10 mg oral tablet (8 sources) Muscle Relaxant Start: 04-11-2024 take 1 tablet by mouth twice daily as needed for muscle spasms cyclobenzaprine (FLEXERIL) 10 mg tablet Take 1 tablet (10 mg total) by mouth 2 (two) times a day as needed for muscle spasms. 10 tablet 04/11/2024 Active diclofenac sodium 75 mg delayed release oral tablet (4 sources) Nonsteroidal Anti-inflammatory Drug Start: 09-05-2024 take 1 tablet by mouth once Diclofenac Sodium 75 mg tablet,delayed release (DR/EC) Active 75 MG PO Once September 05, 2024 12:00am Complies with drug therapy Start: 08-31-2024 take 1 tablet by claudia twice daily as needed diclofenac (Voltaren) 75 MG EC tablet Take 75 mg by mouth 2 (two) times a day as needed 08/31/2024 Active 1 ml diphenhydrAMINE hydrochloride 50 mg/ml cartridge (1 source) Histamine-1 Receptor Antagonist Start: 04-06-2020 End: 04-06-2020 diphenhydrAMINE (BENADRYL) injection 12.5 mg docusate sodium 50 mg / sennosides, assisted 8.6 mg oral tablet (11 sources) Start: [...] Take 1 tablet by claudia once daily. 0.5 ml dulaglutide 3 mg/ml auto-injector (1 source) GLP-1 Receptor Agonist Start: 03-01-20 25 Dulaglutide (Trulicity) 1.5 mg/0.5 mL pen injector Active 1.5 MG SUBCUT every week March 01, 2025 12:00am Complies with drug therapy DULoxetine 60 mg delayed release oral capsule (20 sources) Serotonin and Norepinephrine Reuptake Inhibitor Start: 04-25-20 take 1 capsule by mouth twice daily DULoxetine [address] Particles capsule DR Take 60 mg by mouth 2 times daily. 0 04/25/2021 Active Start: 07-27-2019 take 1 capsule by mo uth once daily Duloxetine (Cymbalta) 60 mg capsule,delayed release(DR/EC) Active 1 CAP PO Daily September 20, 2023 12:00am FreeTextSi capsule Orally Once a day; Note: Source Status: Taking; Provider: Akosua Mckeon ( ) Complies with drug therapy End: 10-20-2023 take 1 capsule by mouth once daily DULoxetine (CYMBALTA) 30 mg capsule Take 30 mg by mouth daily. 10/20/2023 Discontinued Cymbalta Active Comment on above: Take 60 [...] BEDTIME ONCE DAILY NEEDED 11/06/2023 Active Start: 09-20-2023 take 1 tablet by claudia th twice daily Famotidine (Pepcid) 20 mg tablet Active 1 TAB PO Twice daily September 20, 2023 12:00am FreeTextSi TABLET Orally TWICE A DAY; Note: Source Status: Taking; Provider: Akousa Mckeon ( ) Complies with drug therapy Start: 10-20-2019 take 1 tablet by claudia th every twelve hours as needed famotidine (PEPCID) 20 mg tablet Take 20 mg by mouth twice daily as needed. 0 08/26/2021 Active End: 10-20-2023 take 1 tablet by mouth in the morning famotidine (PEPCID) 40 mg tablet Take 40 mg by mouth in the morning. 10/20/2023 Discontinued Comment on above: Take 20 mg by mouth twice daily as needed. 2 ml fentaNYL 0.05 mg/ml injection (1 source) Opioid Agonist Start: 04-06-2020 fentaNYL (SUBLIMAZE) injection 25 mcg ferrous sulfate 325 mg oral tablet (20 sources) Start: 11-02-2023 take 1 tablet by mouth once daily ferrous sulfate 325 mg (65 mg iron) tablet Indications: Impaired intestinal absorption (HCC) , S/P bariatric surgery , Iron deficiency Take 1 tablet by mouth once daily. 30 tablet 2 11/02/2023 Active Start: 11-02-2023 take 1 tablet by claudia th in the morning ferrous sulfate 325 (65 Fe) MG tablet Take 325 mg by mouth in the morning. 11/02/2023 Active 1 ml hydrALAZINE hydrochloride 20 mg/ml injection (1 source) Arteriolar Vasodilator Start: 04-06-2020 hydrALAZINE (APRESOLINE) injection 5 mg hydroCHLOROthiazide 12.5 mg oral tablet (20 sources) Thiazide Diuretic Start: 09-05-2024 take 1 tablet by mouth once daily Hydrochlorothiazide 12.5 mg tablet Active 12.5 MG PO Daily September 05, 2024 12:00am Complies with drug therapy hydrOXYzine pamoate 25 mg oral capsule (20 sources) Antihistamine Start: 09-20-2023 take 1 capsule by mouth once daily at bedtime Hydroxyzine Pamoate 25 mg capsule Active 1 CAP PO Daily at bedtime September 20, 2023 12:00am FreeTextSi capsule at bedtime as needed Orally Once a day; Note: Source Status: Taking; Provider: Akosua Mckeon ( ) Complies with drug therapy Start: 07-08-2023 End: 08-09-2024 take 1 capsule by mouth every twenty-four hours as needed hydrOXYzine pamoate (VISTARIL) 50 mg capsule Take 50 mg by mouth at bedtime as needed. 07/08/2023 Active End: 10-20-2023 take 1 capsule by mouth three times daily as needed hydrOXYzine (VISTARIL) 25 mg capsule Take 25 mg by mouth 3 (three) times a day as needed for itching. 10/20/2023 Discontinued End: 03-10-2023 take 1 capsule by mouth twice daily hydrOXYzine pamoate (VISTARIL) 50 mg capsule Take 50 mg by mouth twice daily. 0 03/10/2023 Discontinued (Course of therapy completed) [facility] Vistaril 25 MG 1 capsule at bedtime as needed Orally Once a day Active Vistaril Active Comment on above: Take 50 mg by mouth twice daily. Take 50 mg by mouth at bedtime as needed. ibuprofen 800 mg oral tablet (2 sources) Nonsteroidal Anti-inflammatory Drug Start: 022 take 1 tablet by mouth three times daily at mealtime as needed Ibuprofen 800 MG 1 tablet with food or milk as needed Orally Three times a day for 10 day(s) October, Active Knee Immobilizer unit (1 source) Start: 025 Knee Immobilizer unit Active 0 .Route 1 March 01, 2025 12:00am As directed lamoTRIgine 100 mg oral tablet (20 sources) Mood Stabilizer, Anti-epileptic Agent Start: 021 take 1 tablet by mouth once daily Lamotrigine 100 mg tablet Active 100 MG PO Daily September 05, 2024 12:00am Complies with drug therapy Comment on above: Take 100 mg by mouth every morning. levonorgestrel 0.083270 mg/hr intrauterine system (20 sources) Progestin, Progestin-containing Intrauterine Device Start: 024 Levonorgestrel (Mirena) 21 mcg/24 hours (8 yrs) 52 mg intrauterine device Active 1 DEVICE INTRAUTERI Once September 20, 2023 12:00am Complies with drug therapy Start: 09-01-2023 Levonorgestrel intrauterine device Levonorgestrel ( Mirena, 52 MG,) 20 MCG/DAY intrauterine device 1 each by Intrauterine route Active Mirena Active Comment on above: 1 Each by INTRAUTERI NE route one time only. loratadine 10 mg oral tablet (20 sources) Start: 4 End: 4 take 1 tablet by mouth once daily Loratadine 10 mg tablet Active 10 MG PO Daily September 20, 2023 12:00am Complies with drug therapy Loratadine Activ e Comment on above: Take 10 mg by mouth once daily. LORazepam 0.5 mg oral tablet (9 sources) Benzodiazepine Start: 04-27-2024 LORazepam (Ativan) 0.5 MG tablet Indications: Internal derangement of right knee Take 1 tablet (0.5 mg) by mouth See administration instructions for 1 dose 1 by mouth 1 hour prior to MRI 1 tablet 04/27/2024 Active 1 ml meperidine hydrochloride 50 mg/ml injection (1 source) Opioid Agonist Start: 04-06-2020 meperidine (DEMEROL) injection 12.5 mg metFORMIN hydrochloride 500 mg oral tablet (20 sources) Biguanide Start: 09-05-2024 Metformin 500 mg tablet Active 500 MG PO September 05, 2024 12:00am Complies with drug therapy Start: 11-03-2023 End: 03-04-2024 take 1 tablet by mouth once daily at dinner metFORMIN ER (GLUCOPHAGE XR) 500 mg 24 hr tablet take 1 tablet by mouth daily with dinner 30 tablet 3 03/04/2024 Active Start: 11-03-2023 take 1 tablet by claudia th every twenty-four hours at mealtime metFORMIN XR (Glucophage-XR) 500 MG 24 hr tablet Take 500 mg by mouth in the evening. Take with meals 11/03/2023 Active methocarbamol 750 mg oral tablet (7 sources) Muscle Relaxant Start: 05-05-2024 Methocarbamol 750 mg tablet Active 750 MG PO September 05, 2024 12:00am Complies with drug therapy Start: 08-11-2023 End: 08-21-2023 take 1 tablet [...] oral tablet (20 sources) Leukotriene Receptor Antagonist Start: take 1 tablet by mouth once daily Montelukast 10 mg tablet Active 10 MG PO Daily September 05, 2024 12:00am Complies with drug therapy Comment on above: Take 10 mg by mouth daily at bedtime. Multiple Vitamin (Daily-Sandor) tablet (1 source) Start: 1 Multiple Vitamin (Daily-Sandor) tablet 1 tablet daily. 0 04/25/2021 Active Multiple Vitamin (Multi Vitamin) tablet (20 sources) Multiple Vitamin (Multi Vitamin) tablet 1 (one) time each day at the same time Active Multiple Vitamins-Minerals (Bariatric Multivitamins/Iron) capsule (20 sources) Multiple Vitamins-Minerals (Bariatric Multivitamins/Iron) capsule Take by mouth Active mupirocin 0.02 mg/mg topical ointment (1 source) RNA Synthetase Inhibitor Antibacterial Start: 2 Mupirocin 2 % 1 application Externally Three times a day for 7 days Sep, Active omeprazole 40 mg delayed release oral capsule (20 sources) Proton Pump Inhibitor Start: 5 Omeprazole 40 mg capsule,delayed release(DR/EC) Active 40 MG PO September 05, 2024 12:00am Complies with drug therapy Start: 08-11-2023 End: 11-09-2023 take 1 capsule [...] tablet (20 sources) Serotonin-3 Receptor Antagonist Start: 09-06-19 take 1 tablet by mouth every eight hours as needed for nausea and vomiting Ondansetron 4 mg tablet,disintegrati ng Active 4 MG PO Every 8 hours as needed for nausea and vomiting 7 September 05, 2024 12:00am Complies with drug therapy Start: 07-06-2024 take 1 tablet by claudia th every six hours as needed for nausea and vomiting and nausea and nausea ondansetron (Zofran) 4 MG tablet Indications: Nausea Take 1 tablet (4 mg) by mouth every 6 (six) hours if needed for nausea or vomiting for up to 30 doses Take 1 tablet by mouth every 6 hours as needed for nausea. 30 tablet 3 07/06/2024 Active Start: 08-11-2023 End: 08-17-2023 take 1 tablet by mouth every eight [...] oral tablet (20 sources) Anti-epileptic Agent Start: 5 End: 5 take 1 tablet by mouth twice daily Oxcarbazepine 300 mg tablet Active 300 MG PO Twice daily 60 February 13, 2025 11:18am Complies with drug therapy Start: 05-05-2024 End: 06-04-2024 take 1.5 tablets by mouth at bedtime OXcarbazepine (Trileptal) 300 MG tablet Indications: Seizure (CMS/HCC) Take 1.5 tablets (450 mg) by mouth at bedtime 45 tablet 05/05/2024 06/04/2024 Active Start: 07-08-2023 End: 09-19-2024 take 1 tablet by mouth once daily [...] immediate release tablet Indications: BMI 60.0-69.9, adult ([facility]) , Preop testing Take 1 tablet by [...] directed left foot sprain October, Active prazosin 2 mg oral capsule (20 sources) alpha-Adrenergic Emre Start: 09-05-2024 take 1 capsule by mouth once daily Prazosin 2 mg capsule Active 2 MG PO Daily September 05, 2024 12:00am Complies with drug therapy Start: 09-05-2024 take 1 capsule by mo uth once daily Prazosin 2 mg capsule Active 2 MG PO Daily September 05, 2024 12:00am Start: 08-19-2021 take 1 capsule by mo uth once daily at bedtime prazosin (MINIPRESS) 1 mg cap Take 1 mg by mouth daily at bedtime. 08/19/2021 Active Comment on above: Take 1 mg by mouth d aily at bedtime. (8 sources) Active Vit-Fe Fumarate-FA ( VITAMIN [...] TABLET BY MOUTH DAILY 0 07/27/2019 Suspended VITAMIN PLUS LOW IRON 27 mg iron- 1 mg tablet (9 sources) Start: 06-24-2019 take 1 tablet by mouth once daily VITAMIN PLUS LOW IRON 27 mg iron- 1 mg tablet TAKE 1 TABLET BY MOUTH DAILY 90 tablet 3 06/24/2019 Active 1 ml promethazine hydrochloride 25 mg/ml injection (10 sources) Phenothiazine Start: 04-06-2020 End: 04-06-2020 promethazine (PHENERGAN) injection 6.25 mg Start: 05-29-2017 PROMETHAZINE ( Phenergan) up to 50 mg May, 25 mg propranolol hydrochloride 60 mg oral tablet (20 sources) beta-Adrenergic Emre Start: 09-20-2023 take 1 tablet by mouth once daily Propranolol 60 mg tablet Active 1 TAB PO Daily September 20, 2023 12:00am FreeTextSi tablet Orally Once a day; Note: Source Status: Taking; Provider: Akosua Mckeon ( ) Complies with drug therapy Start: 05-13-2021 take 1 tablet by claudia th twice daily propranolol (INDERAL) 60 mg tablet Take 60 mg by mouth twice daily. 11/25/2021 Active propranolol (Ind eral) 60 MG tablet every 12 (twelve) hours Active End: 10-20-2023 take 1 tablet by mouth three times daily propranolol (INDERAL) 10 mg tablet Take 10 mg by mouth 3 (three) times a day. 10/20/2023 Discontinued take 1 tablet by claudia th every [...] twice daily. QUEtiapine 100 mg oral tablet (12 sources) Atypical Antipsychotic Start: 0 End: 2 take 1 tablet by mouth at bedtime QUEtiapine (SEROQUEL) 100 MG tablet TAKE 1 TABLET BY MOUTH AT BEDTIME 0 08/03/2019 Active End: 10-20-2023 take 1 tablet by mouth once daily QUEtiapine XR (SEROquel XR) 150 mg 24 hr tablet Take 150 mg by mouth daily. 10/20/2023 Discontinued SEROquel Not-Duncan ing Comment on above: Take 100 mg by mouth once daily as needed. rizatriptan 10 mg disintegrating oral tablet (20 sources) Serotonin-1b and Serotonin-1d Receptor Agonist Start: 5 End: 5 take 1 tablet by mouth once Rizatriptan 10 mg tablet,disintegratin g Active 10 MG PO As Directed February 13, 2025 11:19am Take 1 tablet (10 mg) by mouth 1 (one) time if needed for migraine for up to 30 doses May repeat in 2 hours if unresolved. Do not exceed 30 mg in 24 hours. Complies with drug therapy Start: 10-05-2023 End: 09-14-2024 take 1 tablet by mouth once rizatriptan [employer] (Maxalt-ML T) 10 MG disintegrating tablet Indications: Migraine without aura and without status migrainosus, not intractable (CMS/HCC) Take 1 tablet (10 mg) by mouth 1 (one) time if needed for migraine for up to 30 doses May repeat in 2 hours if unresolved. Do not exceed 30 mg in 24 hours. 9 tablet 3 09/15/2024 Active semaglutide, weight loss, (WEGOVY) 0.25 mg/0.5 mL pen injector (4 sources) Start: 08-08-2024 End: 10-31-2024 inject 0.5 mL by subcutaneous injection every week semaglutide, weight loss, (WEGOVY) 0.25 mg/0.5 mL pen injector Indications: S/P biliopancreatic diversion with duodenal switch , BMI 60.0-69.9, adult (HCC) , Prediabetes , S/P bariatric surgery Inject 0.5 mL subcutaneously one time a week. 2 mL 2 08/08/2024 10/31/2024 Active sulfamethoxazole 800 mg / trimethoprim 160 mg oral tablet (1 source) Dihydrofolate Reductase Inhibitor Antibacterial, Sulfonamide Antimicrobial Start: 10-03-2021 take 1 tablet by mouth every twelve hours Bactrim DS 800-160 MG 1 tablet Orally Twice a day for 10 day(s) Sep, Active SUMAtriptan 50 mg oral tablet (20 sources) Serotonin-1b and Serotonin-1d Receptor Agonist SUMAtriptan (Imitrex) 50 MG tablet Active tirzepatide (MOUNJARO) 2.5 mg/0.5 mL pen injector (20 sources) Start: 01-10-2025 End: 04-10-2025 tirzepatide (MOUNJARO) 2.5 mg/0.5 mL pen injector Indications: S/P biliopancreatic diversion with duodenal switch , BMI 70 and over, adult (HCC) , TONEY (obstructive sleep apnea) , Type 2 diabetes mellitus without complication, without long-term current use of insulin ([facility]) Inject 2.5 mg subcutaneously one time a week. 2 mL 2 01/10/2025 04/10/2025 Active Start: 04-19-2024 inject 2.5 mg by sub cutaneous injection every week tirzepatide (MOUNJARO) 2.5 mg/0.5 mL pen injector Indications: BMI 60.0-69.9, adult (HCC) , S/P bariatric surgery , S/P biliopancreatic diversion with duodenal switch , Prediabetes Inject 2.5 mg subcutaneously one time a week. 2 mL 1 04/19/2024 Active Start: 04-19-2024 End: 06-14-2024 inject 2.5 mg by subcutaneous injection every week tirzepatide (MOUNJARO) 2.5 mg/0.5 mL pen injector Indications: BMI 60.0-69.9, adult (HCC) , S/P bariatric surgery , S/P biliopancreatic diversion with duodenal switch , Prediabetes Inject 2.5 mg subcutaneously one time a week. 2 mL 1 04/19/2024 06/14/2024 Active tirzepatide, weight loss (ZEPBOUND) 2.5 mg/0.5 mL pen injector (12 sources) Start: 10-05-2024 inject 2.5 mg by subcutaneous injection every week tirzepatide, weight loss (ZEPBOUND) 2.5 mg/0.5 mL pen injector Indications: TONEY (obstructive sleep apnea) , S/P biliopancreatic diversion with duodenal switch , BMI 70 and over, adult (HCC) Inject 2.5 mg subcutaneously one time a week. Severe TONEY-AHI >30 2 mL 2 10/05/2024 Active Start: 10-05-2024 End: 12-28-2024 inject 2.5 mg by subcutaneous injection every week tirzepatide, weight loss (ZEPBOUND) 2.5 mg/0.5 mL pen injector Indications: TONEY (obstructive sleep apnea) , S/P biliopancreatic diversion with duodenal switch , BMI 70 and over, adult (HCC) Inject 2.5 mg subcutaneously one time a week. Severe TONEY-AHI >30 2 mL 2 10/05/2024 12/28/2024 Active traZODone hydrochloride 50 mg oral tablet (4 sources) Serotonin Reuptake Inhibitor Start: 08-31-2024 Trazodone 50 mg tablet Active 50 MG PO September 05, 2024 12:00am Complies with drug therapy varenicline 1 mg oral tablet (1 source) Partial Cholinergic Nicotinic Agonist Start: 03-01-2025 take 1 tablet by mouth twice daily Varenicline Tartrate (Chantix) 1 mg tablet Active 1 MG PO Twice daily March 01, 2025 12:00am Complies with drug therapy Walker misc (1 source) Start: 03-01-2025 Walker misc Active 0 .Route 1 March 01, 2025 12:00am As directed zinc acetate 25 mg oral capsule (20 sources) Start: 11-02-2023 take 1 capsule by mouth once daily Zinc Acetate, Oral, 25 mg (zinc) cap Indications: Impaired intestinal absorption (HCC) , S/P bariatric surgery , Dietary zinc [...] ROCEPHIN per 250 mg Sep, 250 mg clindamycin 300 mg oral capsule (1 source) Lincosamide Antibacterial Start: 11-04-2024 End: 03-01-2025 take 1 capsule by mouth three times daily Clindamycin Hcl 300 mg capsule Discontinued 300 MG PO Three times daily 30 November 04, 2024 12:00am March 01, 2025 4:53pm dicyclomine hydrochloride 20 mg oral tablet (20 sources) Anticholinergic Start: 10-21-2018 take 1 tablet by mouth every eight hours Dicyclomine HCl 20 MG 1 tablet Orally tid for 30 days Sep, Not-Taking End: 10-20-2023 take 1 tablet by mouth every six hours dicyclomine (BENTYL) 20 mg tablet Take 20 mg by mouth every 6 (six) hours. 10/20/2023 Discontinued End: 09-23-2021 take 1 tablet by mouth [...] Contrast as designated per enteric contrast guidelines fluticasone propionate 0.05 mg/actuat metered dose nasal spray (20 sources) Corticosteroid Start: 4 End: 5 take 2 spray(s) nasal route once daily Fluticasone Propionate (Flonase Allergy Relief) 50 mcg/actuation spray,suspension Discontinued 2 SPRAY INTRANASAL Daily June 15, 2024 1:00am September 05, 2024 2:18pm administer 2 spray into each nostril Start: 04-25-2021 take 2 spray(s) nasa l route once daily fluticasone 50 MCG/ACT Suspension nasal spray instill 2 (TWO) sprays in EACH nostril DAILY 0 04/25/2021 Active End: 03-10-2023 take 2 spray(s) nasal route once daily fluticasone (FLONASE) 50 mcg/actuation nasal spray Use 2 Sprays in each nostril once daily. 0 03/10/2023 Discontinued (Course of therapy completed) Comment on above: Use 2 Sprays in each nostril once daily. gabapentin 300 mg oral capsule (2 sources) [...] Patch as dir ected every 24 hours. methylPREDNISolone 4 mg oral tablet (16 sources) Corticosteroid Start : 06-15 End: 09-05 take 1 tablet by mouth once Methylprednisolone (Medrol (Belén)) 4 mg tablets,dose pack Discontinued 0 PO per package directions June 15, 2024 1:00am September 05, 2024 2:11pm PO PER PKG DIR for 6 days Start: 06-01-2024 End: 06-01-2024 methylPREDNISolone acetate (DEPO-Medrol) injection 40 mg Start: [...] on above: Take 1 tablet by claudia as directed. As Instructed per package mometasone [...] 1 tablet by claudia th once daily. predniSONE 20 mg oral tablet (5 sources) Start: 09-20-2023 End: 06-15-2024 take 1 tablet by mouth twice daily Prednisone 20 mg tablet Discontinued 20 MG PO Twice daily 10 September 20, 2023 12:00am June 15, 2024 7:23pm Start: 04-16-2022 take 1 tablet by claudia th every twelve hours predniSONE 20 MG 1 tablet Orally 2 times a day for 5 day(s) Mar, Active sucralfate 1000 mg oral tablet (20 sources) Aluminum Complex Start: 07-07-2024 End: 08-09-2024 take 1 tablet by mouth at bedtime sucralfate (CARAFATE) 1 gram tablet Take 1 tablet (1 g total) by mouth in the morning and 1 tablet (1 g total) at noon and 1 tablet (1 g total) in the evening and 1 tablet (1 g total) before bedtime. 120 tablet 07/07/2024 08/09/2024 Discontinued (Therapy completed) Start: 08-18-2018 take 1 tablet by claudia th every six hours Sucralfate 1 GM 1 tablet on an empty stomach Orally four times a day for 30 days Jul, Active End: 10-20-2023 take 1 tablet by mouth four times daily sucralfate (CARAFATE) 1 gram tablet Take 1 g by mouth 4 (four) times a day. 10/20/2023 Discontinued sucralfate (SCOTTY FATE) 1 GM/10ML suspension Carafate 100 mg/mL oral suspension 0 Active Comment on above: Take 1 g by mouth fo ur times daily. topiramate 100 mg oral tablet (20 sources) Start: 03-03-20 End: 10-20-19 take 1 tablet by mouth once daily [...] Date Documented Da te Episodic/Chronic Abdominal pain (15 sources) Pain in pelvis; Translations: [Pelvic and perineal pain] Onset: 5 Episodic Acute and chronic tonsillitis (20 sources) Enlarged tonsil; Translations: [Hypertrophy of tonsils] Onset: 6 10-04-2015 Chronic Administrative/social admission (15 sources) Patient encounter status; Translations: [Dietary counseling and surveillance] Onset: 5 Episodic Complications of surgical procedures or medical care (1 source) Post-surgical malabsorption; Translations: [Postsurgical malabsorption, not elsewhere classified] Chronic Deficiency and other anemia (12 sources) Iron deficiency anemia; Translations: [Iron deficiency anemia, unspecified] 06-15-2024 Episodic Diabetes mellitus without complication (5 sources) Type 2 diabetes mellitus; Translations: [Type 2 diabetes mellitus without complications] Onset: 5 01-10-2025 Chronic Diabetes mellitus without complication (2 sources) Prediabetes; Translations: [Prediabetes] 04-19-2024 Episodic Diseases of [...] internal derangement of right knee] 04-27-2024 Chronic Miscellaneous mental health disorders (6 sources) Eating disorder; Translations: [Eating disorder, unspecified] 12-28-2024 Chronic Mood disorders (20 sources) Bipolar disorder; Translations: [Bipolar disorder, unspecified] Onset: 6 10-04-2015 Chronic Mood disorders (2 sources) Bipolar disorder, most recent episode depression; Translations: [Bipolar depression] Onset: 0 02-17-2020 Nausea and vomiting (14 sources) Vomiting; Translations: [Vomiting, unspecified] 08-17-2023 Episodic Nutritional deficiencies (1 source) Vitamin D deficiency; Translations: [Vitamin D deficiency, unspecified] 11-02-2023 Chronic Osteoarthritis (20 sources) Degenerative joint disease of shoulder region; Translations: [Primary osteoarthritis, right shoulder] 04-12-2024 Chronic Other aftercare (1 source) Other long-term (current) drug therapy; Translations: [OTH DRAWING TRACER CURRENT DRUG THERAPY] Onset: 3 Episodic Other aftercare (3 sources) Surgical follow-up; Translations: [Encounter for follow-up examination after completed treatment for conditions other than malignant neoplasm] 08-17-2023 Episodic Other and unspecified benign neoplasm (3 sources) Pituitary microadenoma; Translations: [Benign neoplasm of pituitary gland] 06-15-2024 Episodic Other connective tissue disease (4 sources) Pain in right foot; Translations: [Pain in right foot] 06-15-2024 Episodic Other connective tissue disease (2 sources) Calcaneal spur, right foot Episodic Other connective tissue disease (2 sources) Plantar fascial fibromatosis Episodic Other connective tissue disease (2 sources) Pain in right foot Episodic Other connective tissue disease (3 sources) Fibromyalgia; Translations: [Fibromyalgia] 06-15-2024 Episodic Other connective tissue disease (2 sources) Foot pain; Translations: [Pain in right foot] 06-15-2024 Episodic Other disorders of stomach and duodenum (2 sources) Gastric fistula; 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] Episodic Other endocrine disorders (12 sources) Hyperprolactinemia; Translations: [Hyperprolactinemia] 06-15-2024 Chronic Other endocrine disorders (12 sources) Disorder of pituitary gland; Translations: [Disorder of pituitary gland, unspecified] 06-15-2024 Chronic Other female genital disorders (1 source) Mass of uterine adnexa; Translations: [Other specified symptoms associated with female genital organs] Episodic Other gastrointestinal disorders (1 source) Malabsorption syndrome; Translations: [Other intestinal malabsorption] Chronic Other gastrointestinal disorders (20 sources) Abnormal intestinal absorption; Translations: [Intestinal malabsorption, unspecified] Onset: 4 08-19-2023 Chronic Other gastrointestinal disorders (1 source) Intestinal malabsorption, unspecified; Translations: [Impaired intestinal absorption (HCC)] Onset: 4 Chronic Other gastrointestinal disorders (13 sources) History of sleeve gastrectomy; Translations: [Bariatric surgery status] Onset: 1 Episodic Other gastrointestinal disorders (1 source) Dysphagia; Translations: [Dysphagia, unspecified] Episodic Other gastrointestinal disorders (9 sources) Abdominal bloating; Translations: [Abdominal distension (gaseous)] Episodic Other gastrointestinal disorders (9 sources) Diarrhea; Translations: [Diarrhea, unspecified] Episodic Other gastrointestinal disorders (20 sources) History of bariatric surgical procedure; Translations: [Bariatric surgery status] Onset: 4 Episodic Other gastrointestinal disorders (13 sources) Pelvic mass; Translations: [Intra-abdominal and pelvic swelling, mass and lump, unspecified site] Onset: 5 08-03-2024 Episodic Other gastrointestinal disorders (3 sources) Intra-abdominal and pelvic swelling, mass and lump, unspecified site; Translations: [Intra-abdominal and pelvic swelling, mass and lump, unspecified site] Onset: 5 Episodic Other injuries and conditions due to external causes (1 source) Other specified injuries of head, initial encounter; Translations: [OTH SPEC INJURIES HEAD INITIAL ENC] Onset: 3 Episodic Other lower respiratory disease (2 sources) Snoring; Translations: [Snoring] Episodic Other lower respiratory disease (1 source) Snoring; Translations: [SNORING] Onset: 3 Episodic Other nervous system disorders (12 sources) Chronic pain; Translations: [Other chronic pain] 06-15-2024 Chronic Other nervous system disorders (1 source) Other chronic pain; Translations: [OTHER CHRONIC PAIN] Onset: 2 Chronic Other non-traumatic joint disorders (4 sources) Arthritis [...] 01-17-2017 Other nutritional; endocrine; and metabolic disorders (3 sources) Morbid (severe) obesity due to excess calories; Translations: [Morbid (severe) obesity due to excess calories] Onset: 7 Chronic Other nutritional; endocrine; and metabolic disorders (20 sources) Body mass index 40+ - severely obese; Translations: [Body mass index (BMI) 70 or greater, adult] Onset: 7 Resolved: 8 02-17-2020 Chronic Other nutritional; endocrine; and metabolic disorders (20 sources) Morbid obesity; Translations: [Morbid (severe) obesity due to excess calories] Onset: 7 Chronic Other nutritional; endocrine; and metabolic disorders (5 sources) Severe obesity; Translations: [Morbid (severe) obesity due to excess calories] Chronic Other nutritional; endocrine; and metabolic disorders (2 sources) Body mass index (BMI) 70 or greater, adult; Translations: [BODY MASS INDEX 70/GT ADULT] Onset: 3 Chronic Other nutritional; endocrine; and metabolic disorders (2 sources) Body mass index (BMI) 60.0-69.9, adult; Translations: [BODY MASS INDEX BMI 60.0-69.9 ADULT] Onset: 3 Chronic Other nutritional; endocrine; and metabolic disorders (1 source) Obesity, unspecified; Translations: [OBESITY UNSPECIFIED] Onset: 3 Chronic Other nutritional; endocrine; and metabolic disorders (20 sources) Hypophosphatemia; Translations: [Other disorders of phosphorus metabolism] Onset: 4 08-07-2023 Chronic Other nutritional; endocrine; and metabolic disorders (2 sources) Obese class III; Translations: [Class 3 obesity (HCC)] 12-28-2024 Chronic Other nutritional; endocrine; and metabolic disorders [...] GAIN] Onset: 3 Episodic Other skin disorders (12 sources) Hirsutism; Translations: [Hirsutism] 06-15-2024 Episodic Other upper respiratory disease (12 sources) Seasonal allergy; Translations: [Other seasonal allergic rhinitis] 06-15-2024 Chronic Other upper respiratory infections (14 sources) Streptococcal sore throat; Translations: [Streptococcal pharyngitis] 09-05-2024 Episodic Otitis media and related conditions (4 sources) Serous otitis media; Translations: [Unspecified nonsuppurative otitis media, left ear] 06-15-2024 Episodic Ovarian cyst (7 sources) Cyst of right ovary; Translations: [Unspecified ovarian cyst, right side] Onset: 5 03-07-2024 Episodic Residual codes; unclassified (20 sources) Obstructive sleep apnea syndrome; Translations: [Obstructive sleep apnea (adult) (pediatric)] Onset: 6 Resolved: 8 02-17-2020 Chronic Residual codes; unclassified (2 sources) Finding related to sleep; Translations: [Sleep apnea, unspecified] Chronic Residual codes; unclassified (5 sources) Obstructive sleep apnea (adult) (pediatric); Translations: [OBSTRUCTIVE SLEEP APNEA] Onset: 3 Chronic Residual codes; unclassified (1 source) Sleep [...] Onset: 6 01-06-2017 Chronic Sprains and strains (6 sources) Strain of muscle, fascia and tendon [...] Patient encounter status; Translations: [Preop testing] Unclassified (3 sources) NO SHOW Unclassified (3 sources) LOW BACK PAIN, UNSPECIFIED; Translations: [LOW BACK PAIN, UNSPECIFIED] Onset: 2 Unclassified (1 source) left ulnar neuropathy Onset: 4 Unclassified (1 source) New Patient Onset: 5 Unclassified (1 source) APPOINTMENT CANCELLED 01-09-2025 Unclassified (1 source) No-show for appointment; Translations: [No-show for appointment] Onset: 5 Unclassified (1 source) S86.912A - Strain of unspecified muscle(s) and tendon(s) at lower leg level, left leg, initial encounter Viral infection (1 source) Human papilloma virus infection; Translations: [Human papillomavirus in conditions classified elsewhere and of unspecified site] Episodic Past or Other Problems Problem Classification Problem Date Documented Da te Episodic/Chronic Acute and chronic tonsillitis (20 sources) Tonsillitis; Translations: [Acute recurrent tonsillitis, unspecified] Onset: 10-08-2015 10-08-2015 Episodic Complications of surgical procedures or medical care (19 sources) Open wound of abdomen; Translations: [Disruption of external operation (surgical) wound, not elsewhere classified, subsequent encounter] Onset: 06-21-2017 Resolved: 10-16-2017 09-07-2023 Episodic Essential hypertension (9 sources) Essential hypertension; Translations: [Essential (primary) hypertension] Onset: 10-10-2016 Resolved: 10-16-2017 10-16-2017 Chronic Fever of unknown origin (2 sources) Fever; Translations: [Fever in adult] Onset: 01-17-2017 01-17-2017 Episodic Fluid and electrolyte disorders (20 sources) Hypokalemia; Translations: [Hypokalemia] Onset: 08-07-2023 08-07-2023 Episodic Headache; including migraine (2 sources) Headache; Translations: [Intractable episodic headache] Onset: 01-17-2017 01-17-2017 Episodic Malaise and fatigue (12 sources) Fatigue; Translations: [Other fatigue] Onset: 10-10-2016 Episodic Neoplasms of unspecified nature or uncertain behavior (20 sources) Thrombocytosis; Translations: [Thrombocytosis] Onset: 03-13-2015 03-13-2015 Episodic Nutritional deficiencies (20 sources) Iron deficiency; Translations: [Iron deficiency] Onset: [...] STOMACH AND DUODENUM] Onset: 04-11-2022 Episodic Other disorders of stomach and duodenum (9 sources) Pyloric obstruction; Translations: [Adult hypertrophic pyloric stenosis] Onset: 08-06-2017 Resolved: 10-16-2017 10-16-2017 Episodic Other gastrointestinal disorders (2 sources) Bariatric surgery status; Translations: [BARIATRIC SURGERY STATUS] Onset: 08-31-2022 Episodic Other nervous system disorders (20 sources) Postoperative pain ; Translations: [Other acute postprocedural pain] Onset: 08-05-2023 08-07-2023 Episodic Other non-traumatic joint disorders (20 sources) Pain in right knee; Translations: [Pain in joint, lower leg] Onset: 01-17-2017 10-13-2023 Episodic Other non-traumatic joint disorders (1 source) Knee pain Onset: 04-06-2024 Episodic Peritonitis and intestinal abscess (9 sources) Abdominal abscess; Translations: [Peritoneal abscess] Onset: 08-29-2017 Resolved: 10-16-2017 10-16-2017 Episodic Residual codes; unclassified (1 source) Acquired [...] Test Name Value Interpretation Reference Range Facility [facility] 02[facility]08[facility]25 [facility] SUSI ORTI[facility] ([id number]) 1985 F Date Time Provider Department 02/08/25 ELIESER BALDERAS [facility] During your visit today, we recorded the following information about you: Elieser Balderas APRN.CNP 02/08/2025 3:03 PM Signed Patient did not check in for the virtual [facility] appt today. We called the patient and unable to leave a message as the voicemail was full. Please reschedule the patient. Thank you, Elieser Balderas APRN-BARIATRIC NURSE Allergies As of Date: 02/08/2025 Noted Allergy Reaction ADHES. [id number] 03/13/2015 2 - Rash ADHESIVE TAPE-SILICONES 05/06/2019 2 - Rash AUGMENTIN (AMOXICILLIN-POT CLAVUL*05/06/2019 6 - Diarrhea KEFLEX (CEPHALEXIN) 05/06/2019 2 - Rash 9 - Itching PENICILLINS 05/06/2019 4 - Hives ULTRAM (TRAMADOL HCL) 03/13/2015 9 - Itching Date Reviewed: 02/06/2025 Reviewed by: Czerwony, Mayela A, RD - Fully Assessed Reason for Visit: No Show [1558] Prescriptions as of 02/08/2025 - cholecalciferol, Vitamin D3, (VITAMIN D3) 1,250 mcg (50,000 unit) cap capsule TAKE 1 CAPSULE BY MOUTH EVERY WEEK - tirzepatide (MOUNJARO) 2.5 mg/0.5 mL pen injector Inject 2.5 mg subcutaneously one time a week. - tirzepatide, weight loss (ZEPBOUND) 2.5 mg/0.5 mL pen injector Inject 2.5 mg subcutaneously one time a week. Severe TONEY-AHI >30 - tirzepatide (MOUNJARO) 2.5 mg/0.5 mL pen injector Inject 2.5 mg subcutaneously one time a week. - metFORMIN ER (GLUCOPHAGE XR) 500 mg 24 hr tablet take 1 tablet by mouth daily with dinner - Zinc Acetate, Oral, 25 mg (zinc) cap Take 1 capsule by mouth once daily. - Cholecalciferol, Vitamin D3, 25 mcg (1,000 unit) cap Take 2 capsules by mouth once daily. - ferrous sulfate 325 mg (65 mg iron) tablet Take 1 tablet by mouth once daily. - omeprazole (PRILOSEC) 40 mg capsule Take 1 capsule by mouth once daily. - ondansetron orally disintegrating (ZOFRAN ODT) 4 mg disintegrating tablet dissolve 1 tablet in mouth every 8 hours as needed for nausea/vomiting. - busPIRone (BUSPAR) 15 mg tablet Take [...] by INTRAUTERINE route one time only. - montelukast (SINGULAIR) 10 mg tablet Take [...] once daily. 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 Post-op pain [G89.18] 08/05/2023 Hypokalemia [E87.6] 08/07/2023 Hypophosphataemia [E83.39] 08/07/2023 Impaired intestinal absorption [K90.9] 11/02/2023 Iron deficiency [E61.1] 11/02/2023 Dietary zinc deficiency [E60] 11/02/2023 Encounter Status:Closed by ELIESER BALDERAS on 02/08/25 Normal [facility] 25([place])D3 [facility] 25-hydroxyvitamin D3 [Mass/Vol] 24.3 ng/mL Low 31.0-80.0 [facility] Comment on above: Order Comment: Speci men Type: BLOOD SPECIMENOrdering Facility: [facility] Address: [address] [place] [address] Performed By: #### 1 989-3 ####[facility] [id number] [address] [place] Folate SerPl-ncon 12-28-19 25 Folate [Mass/Vol] ng/mL Normal >4.7 [facility] Comment on above: Order Comment: Ann burroughs Type: BLOOD SPECIMEN Ordering Facility: [facility] Address: [address] [place] [address] Result Comment: A re sult of > 20 ng/mL is not necessarily indicative of a pathologic or treatable condition: it reflects a limitation of the test methodology. Assay reference range: 4.8 to 24.2 ng/mL. Suitable for detection of folate deficiency. Reference: Folate III (Folate III) [package insert V 1.0 Irish]. [facility], [place], [place]: April 2015. Performed By: #### 5 763-8 #### [facility] CLIA [id number] [address] [place] [address] [place] HbA1c (Bld)on 12-27-2024 Average glucose Estimated from glycated hemoglobin (Bld) [Mass/Vol] 157 mg/dL Normal [facility] Comment on above: Order Comment: Ann burroughs Type: BLOOD SPECIMENOrdering Facility: [facility] Address: [address] [place] [address] Result Comment: eAG: (Estimated average glucose) is a calculated value from HgbA1c and is sales representative jewelry of the average blood glucose level in the last 2-3 month period. Performed By: #### 5 5454-3 ####[facility] [id number] [place] [address] [place] HbA1c (Bld) [Mass fraction] 7.1 % High 4.3-5.6 [facility] Comment on above: Order Comment: Ann burroughs Type: BLOOD SPECIMENOrdering Facility: [facility] Address: [address] [place] [address] Result Comment: Amer [place] Diabetes Association guidelines indicate that patients with HgbA1c in the range 5.7-6.4% are at increased risk for development of diabetes, and intervention by lifestyle modification may be beneficial. HgbA1c greater or equal to 6.5% is considered diagnostic of diabetes. Performed By: #### 5 5454-3 ####[facility] [id number] [place] [address] [place] Iron and Iron binding capaci ty panelon 12-27-2024 Iron [Mass/Vol] 71 ug/dL Normal 41-186 [facility] Comment on above: Order Comment: Speci men Type: BLOOD SPECIMEN Ordering Facility: [facility] Address: [address] [place] [address] Performed By: #### 5 763-8 #### [facility] CLIA [id number] [address] [place] [address] [place] Iron binding capacity [Mass/Vol] 362 ug/dL Normal 232-386 [facility] Comment on above: Order Comment: Speci men Type: BLOOD SPECIMEN [facility]ing Facility: [facility] Address: [address] [place] [address] Performed By: #### 5 763-8 #### [facility] CLIA [id number] [address] [place] [address] [place] Iron/TIBC [Molar ratio] 19.6 % Normal 15.0-57.0 [facility] Comment on above: Order Comment: Speci men Type: BLOOD SPECIMEN Ordering Facility: [facility] Address: [address] [place] [address] Performed By: #### 5 763-8 #### [facility] CLIA [id number] [address] [place] [address] [place] PTH-Intact SerPl-ncon 07-0 Parathyrin.intact [Mass/Vol] 47 pg/mL Normal 15-65 [facility] Comment on above: Order Comment: Speci men Type: BLOOD SPECIMEN [facility]: [facility] Address: [address] [place] [address] Performed By: #### 5 763-8 #### [facility] CLIA [id number] [address] [place] [address] [place] TSH SerPl-aCncon 12-27-2024 TSH Qn 3.540 m[IU]/L Normal 0.270-4.20 0 [facility] Comment on above: Order Comment: Ann burroughs Type: BLOOD SPECIMEN [facility]: [facility] Address: [address] [place] [address] Result Comment: If t he patient is , TSH reference range varies by gestational period: First Trimester (weeks 9-12): 0.180-2.990 mIU/L Second Trimester: 0.110-3.980 mIU/L Third Trimester: 0.480-4.710 mIU/L Jacoby Rush et al. A Practical Approach for the Verifications and Determination of Site- and Trimester-Specific Reference Intervals for Thyroid Function tests in . Thyroid, 2019:29:3:412-420. Amos Lyles et al. 2017 Guidelines of the [place] Thyroid Association for the Diagnosis and Management of Thyroid Disease during and the . Thyroid, 2017:27:3:315-389. Performed By: #### 5 763-8 #### [facility] CLIA [id number] [address] [place], [place] [address] [address] [place] VITAMIN B1 (THIAMINE), WHOLE BLOODon 12-27-2024 Thiamine (Bld) [Moles/Vol] 270.7 nmol/L High 84.3-213.3 [facility] Comment on above: Order Comment: Ann burroughs Type: BLOOD SPECIMENOrdering Facility: [facility] Address: [address] [place] [address] Result Comment: This assay measures the concentration of thiamine diphosphate (TDP), the primary active form of vitamin B1. Approximately 90 percent of vitamin B1 present in whole blood is TDP. Thiamine and thiamine monophosphate, which comprise the remaining 10 percent, are not measured. This test was developed, and its performance characteristics determined by the [facility] Department of Pathology and Laboratory Medicine. It has not been cleared or approved by the FDA. The [facility] Department of Pathology and Laboratory Medicine is regulated under CLIA as qualified to perform high-complexity testing. This test is used for clinical purposes. It should not be regarded as investigational or for research. Performed By: #### B 1WB ####[facility] [id number] [place] [address] [place] Vit A SerPl-mCncon 5 Retinol [Mass/Vol] 0.60 mg/L Normal 0.30-1.20 [facility] Comment on above: Order Comment: Speci men Type: BLOOD SPECIMENOrdering Facility: [facility] Address: [address] [place] [address] Result Comment: Test performed at iodine in [place], [place]. This test was developed and its performance characteristics determined by [facility]. It has not been cleared or approved by the US Food and Drug Administration. This test was performed in a CLIA certified laboratory and is intended for clinical purposes. Performed By: #### 2 923-1 ####[facility] [id number] [place] [address] [place] Vit B12 SerPl-mCncon 025 Cobalamin (Vitamin B12) [Mass/Vol] 655 pg/mL Normal 232-1245 [facility] Comment on above: Order Comment: Speci manjeet Type: BLOOD SPECIMEN [facility] Facility: [facility] Address: [address] [place] [address] Performed By: #### 5 763-8 #### [facility] CLIA [id number] [address] [place] [address] [place] Zinc SerPl-mCncon 12-27-2024 Zinc [Mass/Vol] 54 ug/dL Low 60-120 [facility] Comment on above: Order Comment: Speci men Type: BLOOD SPECIMEN [facility]: [facility] Address: [address] [place] [address] Result Comment: This test was developed, and its performance characteristics determined by the [facility] Department of Pathology and Laboratory Medicine. It has not been cleared or approved by the FDA. The [facility] Department of Pathology and Laboratory Medicine is regulated under CLIA as qualified to perform high-complexity testing. This test is used for clinical purposes. It should not be regarded as investigational or for research. Performed By: #### 5 763-8 #### [facility] CLIA [id number] [address] [place] [address] [place] Progress Note - Nurseon 05 Progress Note - Nurse Patient is scheduled for appt with Rohini Landrum CNP on 11/17/24 to review MRI. Per Estrellita at [facility], patient has rescheduled her appointment with them again. This is the 3rd time patient has rescheduled. Stated she is currently scheduled for 11/25/24 @ 1pm. Advised patients authorization is only good until 12/01/24 so if patient cancel's/reschedules her appointment again a new authorization will have to be obtained. Attempted to contact patient however she did not answer and her VM is full. Appt for 11/17/24 will need to be canceled since patient did not complete the testing. Due to patient frequently rescheduling the MRI, patient will need to contact this office to reschedule AFTER she completes the requested testing. Appt has not been canceled yet since we have not been able to speak with patient. Waiting for patient to either return the missed call or cancel herself when the automated appointment reminder calls go out this evening. Will attempt to contact patient again tomorrow if she does not respond to either today. [Electronically Signed on: 11/15/2024 09:56 EDT] Susi Frank [Verified on: 11/15/2024 09:56 EDT] Susi Frank Attempted to contact patient regarding appt for tomorrow, 11/17/24, however she did not answer. Unable to leave a message as the VM is still full. Per call report for appt reminders patient answered the reminder call however did not respond to confirming or cancelling the appt. Since patient has still not been contacted the appt is still scheduled for tomorrow [Electronically Signed on: 11/16/2024 09:07 EDT] Susi Frank Patient called office to cancel her office visit. Patient reports she will call back to reschedule. [Electronically Signed on: 11/16/2024 11:11 EDT] Shaylee Casiano RN [facility] Urine Cultureon 10-05-2024 Bacteria identified Cx Nom (U) >100,000 colonies/ml mixed bacterial skin contaminants 2 Days PERFORMED BY: [place] [address] PATHOLOGIST [employer]DER [employer] JONO MORTENSEN M.D. Normal [facility] Comment on above: Performed By: #### C UU #### [address] COVID Cepheidon 09-05-2024 SARS-CoV-2 (COVID-19) RNA ASH+probe Ql (Unsp spec) COVID Cepheid [facility] Laboratory - Microbiology an d Antimicrobial susceptibilityon 09-05-2024 SARS-CoV-2 (COVID-19) RNA ASH+probe Ql (Unsp spec) Negative [facility] No Panel Informationon 09-05 POC Influenza A (PCR) Negative [facility] POC Influenza B (PCR) Negative [facility] Cytologyon 09-02-2024 Cytology Normal [facility] Comment on above: Result Comment: [facility] [address] [place] [address] Cytology Consultation Patient Name:SUSI ORTIZ:1985 (Age: 39)Gender:FTaken:09/02/2024Reported:09/06/2024 12:31Physician(s):Peyman Holt M.D. ([phone])Copy To: Rec. #:[id number]: #[id number] Final Cytologic Diagnosis Right ovarian cyst fluid: No malignant cells identified. /09/06/2024 Interpretation performed at [facility], [address] [place] [address], License number: [id number].Electronically Signed Out By Lj Torres MD Clinical History Right ovarian cyst Gross Description Received was 150ml of dark bloody fluid unfixed labeled as Ortiz, Right overian cyst fluid . CytoLyt added in lab. Specimen placed in formalin at 15:00 and had a total fixation time of 10 hours. Source of Specimen Right ovarian cyst fluid Cell block for Non-lease operator (M), Level 2 H&E, Non FINANCIAL COORDINATOR ThinPrep Fee Code(s): 1; 38217, 55715 IR ABSC CYST PUNCTURE ASPIRA TIONon 09-02-2024 IR ABSC CYST PUNCTURE ASPIRATION IR ABSC CYST PUNCTURE ASPIRATION Ultrasound-guided guided aspiration of right ovarian cyst CLINICAL INDICATION: Pain in the right lower quadrant, right ovarian cyst. CONSENT: The risks, benefits, and expectations of the procedure were eplained to the patient who signed a written consent. The patient received a total of 100 mcg of fentanyl intravenously for pain control during the procedure. TIME OUT: [place] Protocol Time Out Verification performed. PROCEDURE: In the supine position, the right lower quadrant was evaluated with ultrasound which confirmed the presence of a cystic lesion in the right adnexa measuring 5.2 cm in diameter. The skin was prepped and draped in a sterile fashion and infiltrated with 1% lidocaine. Using real-time ultrasound guidance, an 18-gauge Prodigy Gameeh needle was advanced percutaneously in the right adnexal cyst during direct ultrasound needle visualization and an ultrasound sales representative jewelry image was obtained and saved in PACS. The catheter was connected to a vacuum bottle, and 125 mL of dark brownish fluid was obtained and sent for cytology. The needle was removed and hemostasis obtained by manual compression. A dressing was placed. The patient tolerated the procedure well... Estimated blood loss: 0.1 cc of blood. Cartridge Belt Puncher: None. Complications: None. IMPRESSION: 1. Successful ultrasound-guided percutaneous aspiration of right adnexal cyst, and revealing 125 mL of dark brownish fluid sent for cytology. Finalized by Alexandru Bailey MD on 09/02/2024 12:13 PM [facility] 08-22-2024 [facility] Telephone [facility] ([id number]) 1985 F Date Time Provider Department 08/22/24 RUSSELL SON [facility] During your visit today, we recorded the following information about you: Russell Son PA 08/22/2024 1:22 PM Signed Patient was scheduled for virtual PACC appt at 1pm today. Patient did not check in for visit. Called patient to see if they needed any assistance logging in. Patient did not answer and her VM was full so unable to leave a message. This message routed to [facility] schedulers to contact patient to reschedule [facility]ACC appt. Allergies As of Date: 08/22/2024 Noted Allergy Reaction ADHES. [id number] 03/13/2015 2 - Rash ADHESIVE TAPE-SILICONES 05/06/2019 2 - Rash AUGMENTIN (AMOXICILLIN-POT CLAVUL*05/06/2019 6 - Diarrhea KEFLEX (CEPHALEXIN) 05/06/2019 2 - Rash 9 - Itching PENICILLINS 05/06/2019 4 - Hives ULTRAM (TRAMADOL HCL) 03/13/2015 9 - Itching Date Reviewed: 08/08/2024 Reviewed by: Karon Monsivais RD - Fully Assessed Reason for Visit: No Show [1558] Prescriptions as of 08/22/2024 - semaglutide, weight loss, (WEGOVY) 0.25 mg/0.5 mL pen injector Inject 0.5 mL subcutaneously one time a week. - tirzepatide (MOUNJARO) 2.5 mg/0.5 mL pen injector Inject 2.5 mg subcutaneously one time a week. - metFORMIN ER (GLUCOPHAGE XR) 500 mg 24 hr tablet take 1 tablet by mouth daily with dinner - Zinc Acetate, Oral, 25 mg (zinc) cap Take 1 capsule by mouth once daily. - Cholecalciferol, Vitamin D3, 25 mcg (1,000 unit) cap Take 2 capsules by mouth once daily. - ferrous sulfate 325 mg (65 mg iron) tablet Take 1 tablet by mouth once daily. - omeprazole (PRILOSEC) 40 mg capsule Take 1 capsule by mouth once daily. - ondansetron orally disintegrating (ZOFRAN ODT) 4 mg disintegrating tablet dissolve 1 tablet in mouth every 8 hours as needed for nausea/vomiting. - busPIRone (BUSPAR) 15 mg tablet Take [...] by INTRAUTERINE route one time only. - montelukast (SINGULAIR) 10 mg tablet Take [...] once daily. 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 Post-op pain [G89.18] 08/05/2023 Hypokalemia [E87.6] 08/07/2023 Hypophosphataemia [E83.39] 08/07/2023 Impaired intestinal absorption [K90.9] 11/02/2023 Iron deficiency [E61.1] 11/02/2023 Dietary zinc deficiency [E60] 11/02/2023 Encounter Status:Closed by RUSSELL SON on 08/22/24 Normal [facility] CBC AND AUTO DIFFon 08-09-19 25 Eosinophils (Bld) [#/Vol] 0.5 10*3/uL High 0.0-0.4 [facility] Comment on above: Performed By: #### 2 106-3 #### [facility] ([id number]) [address] [place] [address] 160[address] Eosinophils/100 WBC (Bld) 4.1 % Normal [facility] Comment on above: Performed By: #### 2 106-3 #### [facility] ([id number]) [address] [place] [address] 22533 Erythrocyte distribution width (RBC) [Ratio] 15.4 % High 11.5-15.0 [facility] Comment on above: Performed By: #### 2 106-3 #### [facility] ([id number]) [address] [place] [address] 17925 Hematocrit (Bld) [Volume fraction] 43.2 % Normal 35-47 [facility] Comment on above: Performed By: #### 2 106-3 #### [facility] ([id number]) [address] [place] [address]71 Hemoglobin (Bld) [Mass/Vol] 14.0 g/dL Normal 11.7-15.5 [facility] Comment on above: Performed By: #### 2 106-3 #### [facility] ([id number]) [address] [place] [address]2706 Lymphocytes (Bld) [#/Vol] 3.1 10*3/uL Normal 1.0-3.5 [facility] Comment on above: Performed By: #### 2 106-3 #### [facility] ([id number]) [address] [place] [address] 56557 Lymphocytes/100 WBC (Bld) 25.8 % Normal [facility] Comment on above: Performed By: #### 2 106-3 #### [facility] ([id number]) [address] [place] [address] 17991 MCH (RBC) [Entitic mass] 30.5 pg Normal 27-34 [facility] Comment on above: Performed By: #### 2 106-3 #### [facility] ([id number]) [address] [place] [address] 44464 MCHC (RBC) [Mass/Vol] 32.5 g/dL Normal 32-36 [facility] Comment on above: Performed By: #### 2 106-3 #### [facility] ([id number]) [address] [place] [address] 73818 MCV (RBC) [Entitic vol] 94 fL Normal 80-100 [facility] Comment on above: Performed By: #### 2 106-3 #### [facility] ([id number]) [address] [place] [address] 91547 Monocytes (Bld) [#/Vol] 1.6 10*3/uL High 0-0.9 [facility] Comment on above: Performed By: #### 2 106-3 #### [facility] ([id number]) [address] [place] [address] 23929 Monocytes/100 WBC (Bld) 13.4 % Normal [facility] Comment on above: Performed By: #### 2 106-3 #### [facility] ([id number]) [address] [place] [address] 13705 Neutrophils (Bld) [#/Vol] 6.8 10*3/uL High 1.5-6.6 [facility] Comment on above: Performed By: #### 2 106-3 #### [facility] ([id number]) [address] [place] [address] 57185 Platelet mean volume (Bld) [Entitic vol] 8.3 fL Normal 7-12 [facility] Comment on above: Performed By: #### 2 106-3 #### [facility] ([id number]) [address] [place] [address] 67573 Platelets (Bld) [#/Vol] 604 10*3/uL High 150-450 [facility] Comment on above: Performed By: #### 2 106-3 #### [facility] ([id number]) [address] [place] [address] 81878 RBC COUNT 4.60 X10E12/L Normal 3.80-5.20 [facility] Comment on above: Performed By: #### 2 106-3 #### [facility] ([id number]) [address] [place] [address] 54593 RBC morphology finding Nom (Bld) NORMAL Normal [facility] Comment on above: Performed By: #### 2 106-3 #### [facility] ([id number]) [address] [place] [address] 79905 SEG NEUTROPHIL 56.7 % Normal [facility] Comment on above: Performed By: #### 2 106-3 #### [facility] ([id number]) [address] [place] [address] 07328 WBC (Bld) [#/Vol] 12.0 10*3/uL High 4.0-11.0 [facility] Comment on above: Performed By: #### 2 106-3 #### [facility] ([id number]) [address] [place] [address]5439 COMPREHENSIVE METABOLIC PANE Micah 08-09-2024 Albumin [Mass/Vol] 4.0 g/dL Normal 3.2-5.3 [facility] Comment on above: Performed By: #### 2 106-3 #### [facility] ([id number]) [address] [place] [address] 56561 ALP [Catalytic activity/Vol] 99 U/L Normal 39-130 [facility] Comment on above: Performed By: #### 2 106-3 #### [facility] ([id number]) [address] [place] [address] 79507 ALT [Catalytic activity/Vol] 39 U/L High 0-31 [facility] Comment on above: Performed By: #### 2 106-3 #### [facility] ([id number]) [address] [place] [address] 68800 Anion gap [Moles/Vol] 9 mmol/L Normal 5-15 [facility] Comment on above: Performed By: #### 2 106-3 #### [facility] ([id number]) [address] [place] [address] 19880 AST [Catalytic activity/Vol] 29 U/L Normal 0-41 [facility] Comment on above: Performed By: #### 2 106-3 #### [facility] ([id number]) [address] [place] [address] 29089 Bilirubin [Mass/Vol] 0.2 mg/dL Low 0.3-1.2 [facility] Comment on above: Performed By: #### 2 106-3 #### [facility] ([id number]) [address] [place] [address] 50895 Calcium [Mass/Vol] 9.0 mg/dL Normal 8.5-10.5 [facility] Comment on above: Performed By: #### 2 106-3 #### [facility] ([id number]) [address] [place] [address] 09928 Chloride [Moles/Vol] 101 mmol/L Normal 98-109 [facility] Comment on above: Performed By: #### 2 106-3 #### [facility] ([id number]) [address] [place] [address] 29764 CO2 [Moles/Vol] 29 mmol/L Normal 22-32 [facility] Comment on above: Performed By: #### 2 106-3 #### [facility] ([id number]) [address] [place] [address] 21476 Creatinine [Mass/Vol] 0.66 mg/dL Normal 0.40-1.00 [facility] Comment on above: Result Comment: METH OD TRACEABLE TO IDMS STANDARD Performed By: #### 2 106-3 #### [facility] ([id number]) [address] [place] [address] 75978 eGFR (CKD-EPI) NON-RACE DEPENDENT >90 Normal >59 [facility] Comment on above: Result Comment: Reported eGFR is based on the CKD-EPI 2020 equation that does not use a race coefficient. Performed By: #### 2 106-3 #### [facility] ([id number]) [address] [place] [address] 50588 Glucose [Mass/Vol] 95 mg/dL Normal 65-99 [facility] Comment on above: Performed By: #### 2 106-3 #### [facility] ([id number]) [address] [place] [address] 80879 Potassium [Moles/Vol] 4.3 mmol/L Normal 3.5-5.0 [facility] Comment on above: Performed By: #### 2 106-3 #### [facility] ([id number]) [address] [place] [address] 45344 Protein [Mass/Vol] 7.1 g/dL Normal 6.0-8.0 [facility] Comment on above: Performed By: #### 2 106-3 #### [facility] ([id number]) [address] [place] [address] 23570 Sodium [Moles/Vol] 139 mmol/L Normal 134-146 [facility] Comment on above: Performed By: #### 2 106-3 #### [facility] ([id number]) [address] [place] [address] 30022 Urea nitrogen [Mass/Vol] 7 mg/dL Normal 5-23 [facility] Comment on above: Performed By: #### 2 106-3 #### [facility] ([id number]) [address] [place] [address] 52507 Cancer Ag 125 Qnon CA 125 62 U/mL High 0-35 [facility] Comment on above: Result Comment: The method used for this test is [employer] DXI chemiluminescent immunoassay. Values obtained by different assay methods cannot be used interchangeably. Performed By: #### 2 106-3 #### [facility] ([id number]) [address] [place] [address] 62151 Human epididymis protein 4 [ Moles/Vol]on 08-09-2024 HE4, S 64 pmol/L Normal <=140 [facility] Comment on above: Result Comment: NOTE ADDITIONAL INFORMATION The testing method is an electrochemiluminescence assay manufactured by [employer] and performed on the Modular or Selin system. Values obtained with different assay methods or kits may be different and cannot be used interchangeably. Test results cannot be interpreted as absolute evidence for the presence or absence of malignant disease. Test Performed by: [facility] [address] [place] [address] Physical Therapist: Jayde Babin Ph.D.; CLIA# [id number] Performed By: #### 2 106-3 #### [facility] ([id number]) [address] [place] [address], [place] [address] Nick 07-19-2024 KATTYN Telephone (YARELYNO) SUSI ORTIZ ([id number]) 1985 F Date Time Provider Department 07/19/24 JOE GRANDA During your visit today, we recorded the following information about you: Malissa Vivas 07/19/2024 1:39 PM Signed Phoned patient but no answer. Left VM advising patient that orders for UGI study have been sent via [employer]. Provided callback number if she needs anything or has any questions. Malissa Vivas HEEL MOLDER Room Clerk for Dr. Granda and Jayshree Huffman, BARIATRIC NURSE Allergies As of Date: 07/19/2024 Noted Allergy Reaction ADHES. [id number] 03/13/2015 2 - Rash ADHESIVE TAPE-SILICONES 05/06/2019 2 - Rash AUGMENTIN (AMOXICILLIN-POT CLAVUL*05/06/2019 6 - Diarrhea KEFLEX (CEPHALEXIN) 05/06/2019 2 - Rash 9 - Itching PENICILLINS 05/06/2019 4 - Hives ULTRAM (TRAMADOL HCL) 03/13/2015 9 - Itching Date Reviewed: 05/05/2024 Reviewed by: Karon Monsivais RD - Fully Assessed Reason for Visit: Orders [681] Room Clerk - Other [3602] Prescriptions as of 01/06/2025 - tirzepatide, weight loss (ZEPBOUND) 2.5 mg/0.5 mL pen injector Inject 2.5 mg subcutaneously one time a week. Severe TONEY-AHI >30 - tirzepatide (MOUNJARO) 2.5 mg/0.5 mL pen injector Inject 2.5 mg subcutaneously one time a week. - metFORMIN ER (GLUCOPHAGE XR) 500 mg 24 hr tablet take 1 tablet by mouth daily with dinner - Zinc Acetate, Oral, 25 mg (zinc) cap Take 1 capsule by mouth once daily. - Cholecalciferol, Vitamin D3, 25 mcg (1,000 unit) cap Take 2 capsules by mouth once daily. - ferrous sulfate 325 mg (65 mg iron) tablet Take 1 tablet by mouth once daily. - omeprazole (PRILOSEC) 40 mg capsule Take 1 capsule by mouth once daily. - ondansetron orally disintegrating (ZOFRAN ODT) 4 mg disintegrating tablet dissolve 1 tablet in mouth every 8 hours as needed for nausea/vomiting. - busPIRone (BUSPAR) 15 mg tablet Take [...] by INTRAUTERINE route one time only. - montelukast (SINGULAIR) 10 mg tablet Take [...] once daily. 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 Post-op pain [G89.18] 08/05/2023 Hypokalemia [E87.6] 08/07/2023 Hypophosphataemia [E83.39] 08/07/2023 Impaired intestinal absorption [K90.9] 11/02/2023 Iron deficiency [E61.1] 11/02/2023 Dietary zinc deficiency [E60] 11/02/2023 Encounter Status:Closed by MALISSA VIVAS on 01/06/25 Normal [facility] CBC AND AUTO DIFFon 07-07-19 ABSOLUTE BASOPHIL 0.0 X10E9/L Normal 0.0-0.2 [facility] Comment on above: Performed By: #### [place], [address]-6, CBCA, 3040-3 #### [facility] ([id number]) [address] [place] [address] 32006 ABSOLUTE NEUTROPHIL 7.0 X10E9/L High 1.5-6.6 [facility] Comment on above: Performed By: #### [place], [address]-5, CBCA, 3040-3 #### [facility] ([id number]) [address] [place] [address] [place] [address] Basophils/100 WBC (Bld) 0.2 % Normal [facility] Comment on above: Performed By: #### C MARY JANE, , CBCA, 0-3 #### [facility] ([id number]) [address] [place] [address] 73740 Eosinophils (Bld) [#/Vol] 0.4 10*3/uL Normal 0.0-0.4 [facility] Comment on above: Performed By: #### C MARY JANE, , CBCA, 0-3 #### [facility] ([id number]) [address] [place] [address] 73463 Eosinophils/100 WBC (Bld) 3.5 % Normal [facility] Comment on above: Performed By: #### Nanda HINTON, , CBCA, 3039-3 #### [facility] ([id number]) [address] [place] [address] 03802 Erythrocyte distribution width (RBC) [Ratio] 15.4 % High 11.5-15.0 [facility] Comment on above: Performed By: #### C MARY JANE, , CBCA, 0-3 #### [facility] ([id number]) [address] [place] [address] 10396 Hematocrit (Bld) [Volume fraction] 41.3 % Normal 35-47 [facility] Comment on above: Performed By: #### C MARY JANE, , CBCA, 0-3 #### [facility] ([id number]) [address] [place] [address] 89368 Hemoglobin (Bld) [Mass/Vol] 13.7 g/dL Normal 11.7-15.5 [facility] Comment on above: Performed By: #### C MARY JANE, , CBCA, 0-3 #### [facility] ([id number]) [address] [place] [address] 56198 Lymphocytes (Bld) [#/Vol] 4.1 10*3/uL High 1.0-3.5 [facility] Comment on above: Performed By: #### C MARY JANE, , CBCA, 3040-3 #### [facility] ([id number]) [address] [place] [address] 32101 Lymphocytes/100 WBC (Bld) 32.6 % Normal [facility] Comment on above: Performed By: #### Nanda HINTON, , CBCA, 3040-3 #### [facility] ([id number]) [address] [place] [address] 72264 MCH (RBC) [Entitic mass] 30.5 pg Normal 27-34 [facility] Comment on above: Performed By: #### Nanda HINTON, , CBCA, 0-3 #### [facility] ([id number]) [address] [place] [address] 20288 MCHC (RBC) [Mass/Vol] 33.1 g/dL Normal 32-36 [facility] Comment on above: Performed By: #### Nanda HINTON, , CBCA, 3040-3 #### [facility] ([id number]) [address] [place] [address] 18402 MCV (RBC) [Entitic vol] 92 fL Normal 80-100 [facility] Comment on above: Performed By: #### Nanda HINTON, , CBCA, 3040-3 #### [facility] ([id number]) [address] [place] [address] 99361 Monocytes (Bld) [#/Vol] 1.0 10*3/uL High 0-0.9 [facility] Comment on above: Performed By: #### Nanda HINTON, , CBCA, 3040-3 #### [facility] ([id number]) [address] [place] [address] 33463 Monocytes/100 WBC (Bld) 8.3 % Normal [facility] Comment on above: Performed By: #### C MARY JANE, 79263-7, CBCA, 3040-3 #### [facility] ([id number]) [address] [place] [address] 11299 Neutrophils/100 WBC (Bld) 55.4 % Normal [facility] Comment on above: Performed By: #### C MARY JANE, 37340-5, CBCA, 3040-3 #### [facility] ([id number]) [address] [place] [address] 15272 Platelet mean volume (Bld) [Entitic vol] 7.7 fL Normal 7-12 [facility] Comment on above: Performed By: #### C MARY JANE, , CBCA, 3040-3 #### [facility] ([id number]) [address] [place] [address] 73942 Platelets (Bld) [#/Vol] 572 10*3/uL High 150-450 [facility] Comment on above: Performed By: #### C MARY JANE, , CBCA, 3040-3 #### [facility] ([id number]) [address] [place] [address] 99708 RBC COUNT 4.49 X10E12/L Normal 3.80-5.20 [facility] Comment on above: Performed By: #### C MARY JANE, 96308-6, CBCA, 3040-3 #### [facility] ([id number]) [address] [place] [address] 87091 WBC (Bld) [#/Vol] 12.6 10*3/uL High 4.0-11.0 [facility] Comment on above: Performed By: #### C MARY JANE, , CBCA, 3040-3 #### [facility] ([id number]) [address] [place] [address] 20101 COMPREHENSIVE METABOLIC PANE Micah 07-07-2024 Albumin [Mass/Vol] 3.8 g/dL Normal 3.2-5.3 [facility] Comment on above: Performed By: #### C MARY JANE, , CBCA, 3040-3 #### [facility] ([id number]) [address] [place] [address] 54897 ALP [Catalytic activity/Vol] 87 U/L Normal 39-130 [facility] Comment on above: Performed By: #### C MARY JANE, , CBCA, 0-3 #### [facility] ([id number]) [address] [place] [address] 44549 ALT [Catalytic activity/Vol] 35 U/L High 0-31 [facility] Comment on above: Performed By: #### C MARY JANE, , CBCA, 0-3 #### [facility] ([id number]) [address] [place] [address] 91051 Anion gap [Moles/Vol] 12 mmol/L Normal 5-15 [facility] Comment on above: Performed By: #### C MARY JANE, , CBCA, 3040-3 #### [facility] ([id number]) [address] [place] [address] 37435 AST [Catalytic activity/Vol] 46 U/L High 0-41 [facility] Comment on above: Performed By: #### C MARY JANE, , CBCA, 3040-3 #### [facility] ([id number]) [address] [place] [address] 46870 Bilirubin [Mass/Vol] 0.5 mg/dL Normal 0.3-1.2 [facility] Comment on above: Performed By: #### C MARY JANE, , CBCA, 3040-3 #### [facility] ([id number]) [address] [place] [address] 25396 Calcium [Mass/Vol] 9.2 mg/dL Normal 8.5-10.5 [facility] Comment on above: Performed By: #### C MARY JANE, , CBCA, 3040-3 #### [facility] ([id number]) [address] [place] [address] 31413 Chloride [Moles/Vol] 99 mmol/L Normal 98-109 [facility] Comment on above: Performed By: #### C MARY JANE, , CBCA, 3040-3 #### [facility] ([id number]) [address] [place] [address] 34933 CO2 [Moles/Vol] 25 mmol/L Normal 22-32 [facility] Comment on above: Performed By: #### C MARY JANE, , CBCA, 3040-3 #### [facility] ([id number]) [address] [place] [address] 05258 Creatinine [Mass/Vol] 0.78 mg/dL Normal 0.40-1.00 [facility] Comment on above: Result Comment: METH OD TRACEABLE TO IDMS STANDARD Performed By: #### C MARY JANE, , CBCA, 3040-3 #### [facility] ([id number]) [address] [place] [address] 68100 eGFR (CKD-EPI) NON-RACE DEPENDENT >90 Normal >59 [facility] Comment on above: Result Comment: Reported eGFR is based on the CKD-EPI 2020 equation that does not use a race coefficient. Performed By: #### C MARY JANE, , CBCA, 3040-3 #### [facility] ([id number]) [address] [place] [address] 21187 Glucose [Mass/Vol] 103 mg/dL High 65-99 [facility] Comment on above: Performed By: #### C MARY JANE, , CBCA, 3040-3 #### [facility] ([id number]) [address] [place] [address] 17038 Potassium [Moles/Vol] 4.1 mmol/L Normal 3.5-5.0 [facility] Comment on above: Performed By: #### Nanda HINTON, , CBCA, 3040-3 #### [facility] ([id number]) [address] [place] [address] 08912 Protein [Mass/Vol] 7.5 g/dL Normal 6.0-8.0 [facility] Comment on above: Performed By: #### Nanda HINTON, , CBCA, 3040-3 #### [facility] ([id number]) [address] [place] [address] 04759 Sodium [Moles/Vol] 136 mmol/L Normal 134-146 [facility] Comment on above: Performed By: #### Nanda HINTON, , CBCA, 3040-3 #### [facility] ([id number]) [address] [place] [address] 53121 Urea nitrogen [Mass/Vol] 8 mg/dL Normal 5-23 [facility] Comment on above: Performed By: #### Nanda HINTON, , CBCA, 3040-3 #### [facility] ([id number]) [address] [place] [address] [address] [address] ABDOMEN AND PELVIS W CONT on [...] Mullen MD on 07/07/2024 8:25 PM Normal [facility] HCG ( test) Ql (U)o n 07-07-2024 Beta HCG ( test) Ql (U) Negative Normal NEG [facility] Comment on above: Performed By: #### 2 106-3 #### [facility] ([id number]) [address] [place] [address] 45019 LIPASEon 07-07-2024 Lipase [Catalytic activity/Vol] 25 U/L Normal 17-40 [facility] Comment on above: Performed By: #### [place], 84047-8, CBCA, 3040-3 #### [facility] ([id number]) [address] [place] [address] 12745 MAGNESIUMon 07-07-2024 Magnesium [Mass/Vol] 1.8 mg/dL Normal 1.8-2.6 [facility] Comment on above: Performed By: #### C MP, 50395-2, CBCA, 3040-3 #### [facility] ([id number]) [address] [place] [address] 08733 URN MACROSCOPIC NURon 2024 BILIRUBIN PRIMO Negative Normal NEG [facility] Comment on above: Performed By: #### N UM #### [facility] ([id number]) [address] [place] [address] [place] [address] BLOOD/HGB PRIMO Trace Abnormal NEG [facility] Comment on above: Performed By: #### N UM #### [facility] ([id number]) [address] [place] [address] [place] [address] GLUCOSE PRIMO Negative Normal NEG [facility] Comment on above: Performed By: #### N UM #### [facility] ([id number]) [address] [place] [address] [place] [address] KETONES PRIMO Negative Normal NEG [facility] Comment on above: Performed By: #### N UM #### [facility] ([id number]) [address] [place] [address] [place] [address] LEUKOCYTE ESTERASE PRIMO Negative Normal NEG [facility] Comment on above: Performed By: #### N UM #### [facility] ([id number]) [address] [place] [address] [place] [address] NITRITE PRIMO Negative Normal NEG [facility] Comment on above: Performed By: #### N UM #### [facility] ([id number]) [address] [place] [address] 21776 PH PRIMO 5.5 Normal 5.0-8.5 [facility] Comment on above: Performed By: #### N UM #### [facility] ([id number]) [address] [place] [address] 84116 PROTEIN PRIMO Negative Normal NEG [facility] Comment on above: Performed By: #### N UM #### [facility] ([id number]) [address] [id number] SPECIFIC GRAVITY PRIMO 1.025 Normal 1.003-1.03 5 [facility] Comment on above: Performed By: #### N UM #### [facility] ([id number]) [address] [id number] UROBILINOGEN PRIMO 1.0 eu/dL Normal <1.1 [facility] Comment on above: Performed By: #### N UM #### [facility] ([id number]) [address] [place] [address] No Panel Informationon 06-01 Bushar Nevarez NP 1 08/02/2023 11:15 AM L Inj/Asp: R knee on 06/01/2024 11:14 AM Indications: pain Details: 20 G needle, anterolateral approach Medications: 40 mg methylPREDNISolone acetate 40 MG/ML UTILIZING ASEPTIC TECHNIQUE PT GIVEN INJECTION IN RIGHT KNEE, NEUROVASC INTACT S/P INJ, TOLERATED WELL Procedure, treatment alternatives, risks and benefits explained, specific risks discussed. Consent was given by the patient. [facility] Controlled Substances Agreem entson 05-25-2024 Controlled Substances Agreements [id number] 1 07-25-2023 Progress Note - Provider [id number] IV CONTRAST on [...] contusion. Mild patellar chondromalacia. ELECTRONICALLY SIGNED BY: Artur Babb MD Normal Not Available Progress Note - Nurseon 04-30 Progress Note - Nurse Patient left voicemail notifying office that she cannot have her MRI at [facility] due to the weight limit. Patient requesting a call back. Called patient back to inquire whether patient had a preference on where the MRI order will be sent. Requested patient give office a call back to discuss further [Electronically Signed on: 05/20/2024 09:19 EST] Shayele Casiano RN [Verified on: 05/20/2024 09:19 EST] Shaylee Casiano RN [facility] Coding Summaryon 05-15-2024 [facility] WmvplzlvWBj4xFd+PGhlYWQ+PE1FVE BmJ57nwAFswI0zZ6ZKKGpXIitrHJGP JDhYYdKszqJyHI5uxSXfJWPm IC8+HT8aYFRtRumqwVAoi5Z3hPB1G8 5ryl9dMEonuXU5HEFuFiSfskyat2tg sEb3JFmxWsesRfIf EVOtbD14WMY5tA20Em08zVAvfEJjx8 rzbKo0BzUxJZMlACY9qCrgVRdtg3Rc RRMgP30lbBXku5M6 GHZzrNtclIHcAvHijJS2qR5cXTuqbu pym9aivmbtDru1ll09oBSts6T4zBQ7 T6OydwD6VYVksCJo ThtizAMWuD2aahkjz9puulhuUoWmNP BtWGf9UOg7DKRmlVpnWoQvSF71ADO2 PZTqghEiV9FzHTBl hLloCcF4g6O9Mx9QR2MGYnjvT4XGYF FSWTwvdGQ+BX68fc58I9ReKtzbPml5 NHRfUTI5lVY7kG2w YQChPEzmb4D2fNO2K3QmzcOnfv1yu8 faMATwEUzsG11evOYgd6U9FQWbvWX1 CAKinLimDlIrxP97 Oyc+OQVnrIlhz1NaEbhmv4gjk3fqdD x9CylpJXFljvKelLufGFG0m3ChLi3g TGKjeUW7uAR6uR1v BeVgTjB0SUazN816NgHplAExLpnzC4 9lU9FaqSR+ZYQdYqu8MKHmyByeLP8g F1SjOBBbvidawKWh jErlMN8xLLYfyntaBPZbcN3fCKOuH2 t1UsTmXcZ6GCliG9IsHTLxzbcgMw19 bV2rCnLyJeJ0AQvq P7ZsmvF5CEQreYHuDGlaAQR0C26gz8 I6BITmARIdGMO8sUN5jT8zaBtwkkii bGVmdDsgdmVydGlj CBmdJEdfP800WBWmoFchWtXnOGjiZw BEYXRlOiAgMTEvMTcvMjAyNDwvdGQ+ AXUhZHW9kVixQHSy zNErYLvsWq2ogZvwtJfcHP0bTGNpky viMGDlkV0dHQHwtLVgpEffUZ4mJHTl fwdzp906EtWhNTA2 XONppBLrS4DbvL5vGrMuNTTgRJJbH6 WfkHOnRFgoX149SRrdHeA7TBYcgfJu E7BzWSLytGnjGiI7 w4X2Pw7Sa7YqcrutP0PwdGPdUgXhJt zyHNp8I4JtYemsyXH+WN32LJGeOE12 SVs7FIA5nJkuNSyx VVCyZ1DxjI8iGsSiMFUzCIJeUum+PH RhYmxlIHdpZHRoPScxMDAlJyBzdHls JI9oAj6mDWSmFKIu hWwrzVRbRdAgz2krLXBeOWfpNR4sqZ hbN7CtdTR9YBPeo7f9Kt63G22dN9Kr dXA+PDCifIA4rCX7 tY6gXgRvRoJ4UNkfN193SlGymZCnGn cbn9zrq1nkyUt0GaE1LTEbktZvfXrd SNW3m7QuLr67E76r ZCjjUSGoFZPcSNPsTREswFwdxf4dkH 9wIi8+EFIbmJL7jWM8tD0uPrFgRgO2 TSkmO737VsKvjHVr Rsnfs4fyw1eyhEr6KeXpOYNneqMwaF amXIZ8t6MiXi79I1VqeGzmk6LhCsg7 nf70fBNlw3P3bCF7 O2PfUEObxvntoGRmbHakCC1eDTCqfy viMNIpcF6dKNApB2c9EuQxRcY0UKtm Q0SfeuU9MGHovZFl FJUfnQCPuS1wjipfe6ormkedFbSxUA NtGQd4BNf2UKIwdRwkJsVaULU3NxI5 ISO5iBQesD7moQfc vhfubQ0zSyz+USY3oFAeeUNNNP8zNu wvdGQ+QFWgWUJ1cFfvBQlvWONmyC9o AERvX9q7FkTaJaD6 PRlwN7InnaS9VHQmiXCsOPKsdNEZtN 1dckott3qnmgkyLiFvNTZiVFf1SUq4 LWFsaWduOiBsZWZ0 HiM6FOB7tTElyL3rvTafghabuF8nMa c+QjbfhVrmCER9ASx7S8ReDlz9MNQj bCpiRA6ksWFhLNii Ex8aoQsxzFkcTF0eUFPnhwwam409Uf Vhw9ebBOEzwZHmEMpvAKB1E26xw2I8 DIRzMIDyIXJ3pAB0 cL1iqErsrrzafQAwfVrlwcYqgIuaFL suZYssK797QZAziQirLlDcWUn9G2Nh Nzh8AJYayUswHM0j iMPiYZjtAg6gfVdwwRcmDM1lBSKzve pnf910PtWhc8ojKZUodSTvLUykKIL3 Z75rj6A3OYDjRULe GYE6kXF2mU8inHhlpzhhnPDoyTgqii ObgBiqFAdvAGlvY298YZUaqYleGpZd xNy6O4WkWnq6NTPj iSjdMN6nfXCyCEvbDo8vhOpwnZmgTX 2mUXEtbcuzz601HjBvf6nrNVRivEAv NKniYJB8K26ra9F7 CIKfAJCaAME8oGF4lW2erRcfjsvjmO ScdMgscnDmmXbsCGbgAPdfW788ODPs cDsnPlBhdGllbnQg ZYnzCJy8S9RxVrcelWZ+DE45GIQvDS 20mQMngQPvm3dofAb0TwWvGHIbSDJ3 bEanAZhph7ZjYOVv C70ztQVov8X6PHZiwBuouNGmLxLoaA B4jM8xZVdwppryz7dfwwxlXrzob7ta ku04nP49C88pTXla QRPjHNNzRZXqWKCybSubdm2ypB5dJs 8+CXQalFJ6rZC3uI6uQOXqMlW8YClx K927SuBbpDAjDola j4uva9fpzWj7UvF5JPEnwkOllJpnGJ B6f2PzAm92X09yKImiIRXdHSZyOTNy SFZpgMbfnp3yoI8v Ii8+JCLwwDX5tCK3kD6tRzObGqV8ST oqN129KvZouYAzUnglB93cM1ArgVV+ KUSbAit8TXVilKsd KV0esFIpWGxoAv3uBGD9YuYoDqZfPT uoS2OwFZVlgdmmhqtgpOQ9ICJrENIn tM19Gc9ziQdlUTDe uWZKvM4kdhphk5tkjkrvJtVdYUOfLF l5RGp7KEDlnNsqSoJbXZE4EkJ4RSM9 hBYnlF6teNgkyars sN6kU4CvADGxaywsZn81aG5rArGaXr U5KHggSpa+QkxBTktFTlNISVAsIEpF C8LEJ0EhYQebpUR+ TTHmGCM5kCzyQGyzHVNqrX7tGYMjZ9 d5SeFcLgU4UEbiS1WsMLTkhzcdIx17 wJ0hUrDlCeW4RMyo W8CtesK3FCTraRHlIFhmUNH1R52gj4 L1NRIiSSXzESE4hJC3dV4kaNjridgj bGVmdDsgdmVydGlj PTmxUSjcV557QOElaWzeNtAySnS2Ne I3ROO2X1PwLop6DXFhjUvpSY8xnJHg USvvDk5wfLndkApk PV1tASBhzidkDHDazU6dKKTdiTQyyI yhCH0rXINdonaoy852FqQxWAS8DSZp iIRdE4EoqE9yAnXz DHVxRIRjP0YbdKRxMVusT104VMvdMv Q0JKFumnGcM8YpFMXglIfxXhL3a5I8 Nu6gZCCGERGpwygv dGQ+JAKmFWE3dBonSZgwPJMjtO3yGI VzE1f5JvGyEnX4LQamX6LsJGFmgkro Ei57yE9eNgItJdY1 KPicD6QljwG9OTGweUDsAGwwOEW3M3 2mi2F9ASYpLFAsZRW6vYA8iG9stJjg bjogbGVmdDsgdmVy zXyjUVtrZGlgE801AWGghDygSiLYPL FMRTwvdGQ+WFLeYZX5pRkvPRaxHBOq tW1vOLUjY8g1IqIg NlC2ECrzK9XxDQGgpsujRo43bY2qWu KxDpS4ZSlqE6IqekC4VFJrtIQiCFpf XKY2O95tv5W4YCEo ASHdMQG2eGA0fB6aeLoshwtiqRWjdT mseoPeoZauHDmcWQhqI606DBXoxWbu Qz8HBR93RE17E2Id PjwvdGFibGU+PHRhYmxlIHdpZHRoPS apAYQyHcPbzAhuFA4hPf8kARYuVDGs sBegsQHmTsBfi7qh MGBkXMbbLJ8fyQqmX8OxbLX5SFEcu5 l5Mj88K54xF0DvxGX+IIZceIW7eOI5 kR3cRaGcSlX7SFmw A645XyVbsWQoAiowu1mfv0ftnNx8Kq UiAHJkjdWbqRfdUWR2w8LbWz34I25c IHdpZHRoPSIyMCUi RNExuJypta4mgZ4vSw8+FMWmzGY2sJ Z3jE1iJzNwTfV4XSngD600MeNitVVz HlgeD31yH2KwdZX+ FNYgLdj2PIBiyPbcIV0qyBYbTKkvHs 0bVAM8KkVyHyHtEJotP2HhLFWrmpci mjgyiIF0QXElMRWv kW11Pw2mySyaCi8vIDQpCNG1OSCnuT PlW5DeyJ5kNlGzBQBdOMImG8RbvZTd SWooP153RHfoVtT4 YBAyssRcY6DaJLCtiSfmPtJ5b1G6Oe 4GbWcilLNeLL5fVbHqUWz4E3JlKmy2 YHCoxWzpDU1bgEHs DZxlTv5txOoidLdnPT8pQWLuofdau1 85JgPle6pwKDOmfJPqPQgzLBE8B10e c1N2KQIsWFKjITF5 uPB8yE4nyXhqzpufwPGlbRqndbCxoQ qrBBzpUVptK707XZAnkOqiZqBGIff8 U1GyArw0XRQunGju YE7tlFZeVBohLt2ykXvmjWxpNB5aDT Aqxbspn342IvLox0xnNNYwvCPuUZbs OUQ0G06hg5B4TTPl DFLdLCC6kIA1lG1prZkhewwkhLDswI aynoIuhXwsWOmjTFnxG701JKEyfNsl Cl1REns8X0JfWpb2 YROfhWrqYS9uaKGvYMqiOy6oeQlgyK kfPC5fPXRnueilo574GdLqd2zjKGPq tDYvGMmnNBS3R11w c4S1YVXtRULnPMO8yTM0dY3msXdibp rfpRAvnWatzkNvcGulIGarFHzbP802 IHRvcDsnPlBheWVy OjwvdGQ+TB63wo21V4PxBytvDws0BI YkLUZ0zAB2qI4mPJWbUIpib4P5eJY2 H6VblaBdcp4cl0ji YXB (more content not included)... Normal [facility] 25(OH)D3 [facility] 2023 25-hydroxyvitamin D3 [Mass/Vol] 33.7 ng/mL Normal 31.0-80.0 [facility] Comment on above: Order Comment: Speci men Type: BLOOD SPECIMENOrdering Facility: [facility] Address: [address] [place] [address] Result Comment: Clas sification of 25 [place] Vitamin D status: Deficiency/Insufficiency: < or = 30 ng/ml. Sufficiency/Optimal Levels: 31-80 ng/mL Toxicity: > 100 ng/mL. Test performed by chemiluminescent immunoassay. Performed By: #### 1 989-3 ####[facility] [id number] [facility] [id number] OF [facility] CBC panel Auto (Bld)on 04-29 Erythrocyte distribution width (RBC) [Ratio] 15.5 % High 11.5-15.0 [facility] Comment on above: Order Comment: Speci men Type: BLOOD SPECIMEN [facility] Address: [address] [place] [address] Performed By: #### 5 8410-2 #### [facility] CLIA [id number] [address] [place] [address] Hematocrit (Bld) [Volume fraction] 43.0 % Normal 36.0-46.0 [facility] Comment on above: Order Comment: Speci men Type: BLOOD SPECIMEN [facility]: [facility] Address: [address] [place] [address] Performed By: #### 5 8410-2 #### [facility] CLIA [id number] [address] [place] [address] Hemoglobin (Bld) [Mass/Vol] 13.9 g/dL Normal 11.5-15.5 [facility] [place] Comment on above: Order Comment: Speci men Type: BLOOD SPECIMEN [facility]ing Facility: [facility] Address: [address] [place] [address] Performed By: #### 5 8410-2 #### [facility] CLIA [id number] [address] [place] [address] MCH (RBC) [Entitic mass] 29.2 pg Normal 26.0-34.0 [facility] Comment on above: Order Comment: Speci men Type: BLOOD SPECIMEN [facility]: [facility] Address: [address] [place] [address] Performed By: #### 5 8410-2 #### [facility] CLIA [id number] [address] [place] [address] MCHC (RBC) [Mass/Vol] 32.3 g/dL Normal 30.5-36.0 [facility] Comment on above: Order Comment: Speci men Type: BLOOD SPECIMEN [facility] Address: [address] [place] [address] Performed By: #### 5 8410-2 #### [facility] CLIA [id number] [address] [place] [address] MCV (RBC) [Entitic vol] 90.3 fL Normal 80.0-100.0 [facility] Comment on above: Order Comment: Speci men Type: BLOOD SPECIMEN [facility]: [facility] Address: [address] [place] [address] Performed By: #### 5 8410-2 #### [facility] CLIA [id number] [address] [place] [address]709 Nucleated RBC (Bld) [#/Vol] 10*3/uL Normal <0.01 [facility] [place] Comment on above: Order Comment: Speci men Type: BLOOD SPECIMEN [facility]: [facility] Address: [address] [place] [address] Performed By: #### 5 8410-2 #### [facility] CLIA [id number] [address] [place] [address] 13352 Platelet mean volume (Bld) [Entitic vol] 9.5 fL Normal 9.0-12.7 [facility] [place] Comment on above: Order Comment: Speci men Type: BLOOD SPECIMEN [facility] Address: [address] [place] [address] Performed By: #### 5 8410-2 #### [facility] CLIA [id number] [address] [place] [address]121 Platelets (Bld) [#/Vol] 312 10*3/uL Normal 150-400 [facility] [place] Comment on above: Order Comment: Speci men Type: BLOOD SPECIMEN [facility] Address: [address] [place] [address] Performed By: #### 5 8410-2 #### [facility] CLIA [id number] [address] [place] [address]40 RBC (Bld) [#/Vol] 4.76 10*6/uL Normal 3.90-5.20 [facility] Comment on above: Order Comment: Speci men Type: BLOOD SPECIMEN [facility] Address: [address] [place] [address] Performed By: #### 5 8410-2 #### [facility] CLIA [id number] [address] [place] [address]359 WBC (Bld) [#/Vol] 17.40 10*3/uL High 3.70-11.00 [facility] Comment on above: Order Comment: Speci men Type: BLOOD SPECIMEN [facility] Address: [address] [place] [address] Performed By: #### 5 8410-2 #### [facility] CLIA [id number] [address] [place] [address]358 Comprehensive metabolic 2000 panelon 04-29-2024 Albumin [Mass/Vol] 4.0 g/dL Normal 3.9-4.9 [facility] [place] Comment on above: Order Comment: Speci men Type: BLOOD SPECIMENOrdering Facility: [facility] Address: [address] [place] [address] Performed By: #### 2 4323-8 ####[facility] [id number] [place] [address] ALP [Catalytic activity/Vol] 111 U/L Normal 34-123 [facility] [place] Comment on above: Order Comment: Speci men Type: BLOOD SPECIMENOrdering Facility: [facility] Address: [address] [place] [address] Performed By: #### 2 4323-8 ####[facility] [id number] [place] [address] ALT [Catalytic activity/Vol] 22 U/L Normal 7-38 [facility] [place] Comment on above: Order Comment: Speci men Type: BLOOD SPECIMENOrdering Facility: [facility] Address: [address] [place], [place] [address] Performed By: #### 2 4323-8 ####[facility]IA [id number] [place] [address] Anion gap [Moles/Vol] 11 mmol/L Normal 8-15 [facility] [place] Comment on above: Order Comment: Speci men Type: BLOOD SPECIMENOrdering Facility: [facility] Address: [address] [place] [address] Performed By: #### 2 4323-8 ####[facility] [id number] [place] [address] AST [Catalytic activity/Vol] 17 U/L Normal 13-35 [facility] [place] Comment on above: Order Comment: Speci men Type: BLOOD SPECIMENOrdering Facility: [facility] Address: [address] [place] [address] Performed By: #### 2 4323-8 ####[facility] [id number] [place] [address] Bilirubin [Mass/Vol] 0.2 mg/dL Normal 0.2-1.3 [facility] [place] Comment on above: Order Comment: Speci men Type: BLOOD SPECIMENOrdering Facility: [facility] Address: [address] [place] [address] Performed By: #### 2 4323-8 ####[facility] [id number] [place] [address] Calcium [Mass/Vol] 9.3 mg/dL Normal 8.5-10.2 [facility] [place] Comment on above: Order Comment: Speci men Type: BLOOD SPECIMENOrdering Facility: [facility] Address: [address] [place] [address] Performed By: #### 2 4323-8 ####[facility] [id number] [place] [address] Chloride [Moles/Vol] 103 mmol/L Normal 98-107 [facility] [place] Comment on above: Order Comment: Speci men Type: BLOOD SPECIMENOrdering Facility: [facility] Address: [address] [place] [address] Performed By: #### 2 4323-8 ####[facility] [id number] [place] [address] CO2 [Moles/Vol] 24 mmol/L Normal 22-30 [facility] [place] Comment on above: Order Comment: Speci men Type: BLOOD SPECIMENOrdering Facility: [facility] Address: [address] [place] [address] Performed By: #### 2 4323-8 ####[facility] [id number] [place] [address] Creatinine [Mass/Vol] 0.67 mg/dL Normal 0.58-0.96 [facility] [place] Comment on above: Order Comment: Speci men Type: BLOOD SPECIMENOrdering Facility: [facility] Address: [address] [place] [address] Performed By: #### 2 4323-8 ####[facility] [id number] [place] [address] Creatinine and Glomerular filtration rate.predicted panel (S/P/Bld) 115 mL/min/1.73m??? Normal >=60 [facility] [place] Comment on above: Order Comment: Speci men Type: BLOOD SPECIMENOrdering Facility: [facility] Address: [address] [place] [address] Result Comment: Janet mated Glomerular Filtration Rate [...] actual GFR. Performed By: #### 2 4323-8 ####[facility]IA [id number] [place] [address] Glucose [Mass/Vol] 114 mg/dL High 74-99 [facility] [place] Comment on above: Order Comment: Ann burroughs Type: BLOOD SPECIMENOrdering Facility: [facility] Address: [address] [place] [address] Result Comment: The [place] Diabetes Association (ADA) provides guidance for cutoff [...] Standards of Medical Care in Diabetes 2016, [place] Diabetes Association. Diabetes Care. 2016.39(Suppl 1). Performed By: #### 2 4323-8 ####[facility]IA [id number] [place] [address] Potassium [Moles/Vol] 4.2 mmol/L Normal 3.7-5.1 [facility] Comment on above: Order Comment: Ann burroughs Type: BLOOD SPECIMENOrdering Facility: [facility] Address: [address] [place] [address] Performed By: #### 2 4323-8 ####[facility]IA [id number] [place] [address] Protein [Mass/Vol] 7.5 g/dL Normal 6.3-8.0 [facility] [place] Comment on above: Order Comment: Ann burroughs Type: BLOOD SPECIMENOrdering Facility: [facility] Address: [address] [place] [address] Performed By: #### 2 4323-8 ####[facility] [id number] [place] [address] Sodium [Moles/Vol] 138 mmol/L Normal 136-144 [facility] [place] Comment on above: Order Comment: Speci men Type: BLOOD SPECIMENOrdering Facility: [facility] Address: [address] [place] [address] Performed By: #### 2 4323-8 ####[facility] [id number] [place] [address] Urea nitrogen [Mass/Vol] 10 mg/dL Normal 7-21 [facility] [place] Comment on above: Order Comment: Speci men Type: BLOOD SPECIMENOrdering Facility: [facility] Address: [address] [place] [address] Performed By: #### 2 4323-8 ####[facility]IA [id number] [place] [address] Folate [facility] Folate [Mass/Vol] ng/mL Normal >4.7 [facility] Comment on above: Order Comment: Speci men Type: BLOOD SPECIMENOrdering Facility: [facility] Address: [address] [place] [address] Result Comment: A re sult of > 20 ng/mL is not necessarily indicative of a pathologic or treatable condition: it reflects a limitation of the test methodology. Assay reference range: 4.8 to 24.2 ng/mL. Suitable for detection of folate deficiency. Reference: Folate III (Folate III) [package insert V 1.0 Irish]. [facility], [place], [place]: April 2015. Performed By: #### 2 731-8, 2284-8, 2132-9 ####[facility] [id number] [place] [address] [place] HbA1c (Bld)on 04-29-2024 Average glucose Estimated from glycated hemoglobin (Bld) [Mass/Vol] 137 mg/dL Normal [facility] Comment on above: Order Comment: Abelardoi men Type: BLOOD SPECIMEN [facility] Address: [address] [place] [address] Result Comment: eAG: (Estimated average glucose) is a calculated value from HgbA1c and is sales representative jewelry of the average blood glucose level in the last 2-3 month period. Performed By: #### 5 763-8 #### [facility] CLIA [id number] [address] [place] [address] [place] HbA1c (Bld) [Mass fraction] 6.4 % High 4.3-5.6 [facility] [place] Comment on above: Order Comment: Ann burroughs Type: BLOOD SPECIMEN [facility] Address: [address] [place] [address] Result Comment: [place] Diabetes Association guidelines indicate that patients with HgbA1c in the range 5.7-6.4% are at increased risk for development of diabetes, and intervention by lifestyle modification may be beneficial. HgbA1c greater or equal to 6.5% is considered diagnostic of diabetes. Performed By: #### 5 763-8 #### [facility] CLIA [id number] [address] [place] [address] [place] Iron and Iron binding capaci ty panelon 04-29-2024 Iron [Mass/Vol] 53 ug/dL Normal 41-186 [facility] [place] Comment on above: Order Comment: Ann men Type: BLOOD SPECIMENOrdering Facility: [facility] Address: [address] [place] [address] Performed By: #### 3 016-3, 94074-8 ####[facility] [id number] [place] [address] [place] Iron binding capacity [Mass/Vol] 366 ug/dL Normal 232-386 [facility] [place] Comment on above: Order Comment: Ann men Type: BLOOD SPECIMENOrdering Facility: [facility] Address: [address] [place] [address] Performed By: #### 3 016-3, 83098-1 ####[facility] [id number] [place] [id number] [place] Iron/TIBC [Molar ratio] 14.5 % Low 15.0-57.0 [facility] [place] Comment on above: Order Comment: Speci men Type: BLOOD SPECIMENOrdering Facility: [facility] Address: [address] [place] [address] Performed By: #### 3 016-3, 62542-7 ####[facility] [id number] [place] [address] [place] PTH-Intact SerPl-mCncon -0 Parathyrin.intact [Mass/Vol] 38 pg/mL Normal 15-65 [facility] [place] Comment on above: Order Comment: Speci men Type: BLOOD SPECIMENOrdering Facility: [facility] Address: [address] [place] [address] Performed By: #### 2 731-8, 2284-8, 2132-9 ####[facility] [id number] [place] [address] [place] TSH SerPl-aCncon 04-29-2024 TSH Qn 2.600 m[IU]/L Normal 0.270-4.20 0 [facility] [place] Comment on above: Order Comment: Speci men Type: BLOOD SPECIMENOrdering Facility: [facility] Address: [address] [place] [address] Result Comment: If t he patient is , TSH reference range varies by gestational period: First Trimester (weeks 9-12): 0.180-2.990 mIU/L Second Trimester: 0.110-3.980 mIU/L Third Trimester: 0.480-4.710 mIU/L Jacoby Rush et al. A Practical Approach for the Verifications and Determination of Site- and Trimester-Specific Reference Intervals for Thyroid Function tests in . Thyroid, 2019:29:3:412-420. Amos Lyles, et al. 2017 Guidelines of the [place] Thyroid Association for the Diagnosis and Management of Thyroid Disease during and the . Thyroid, 2017:27:3:315-389. Performed By: #### 3 016-3, 24361-5 ####[facility] [id number] [place] [address] [place] VITAMIN B1 (THIAMINE), WHOLE BLOODon 04-29-2024 Thiamine (Bld) [Moles/Vol] 283.0 nmol/L High 84.3-213.3 [facility] [place] Comment on above: Order Comment: Speci men Type: BLOOD SPECIMEN [facility] Address: [address] [place] [address] Result Comment: This assay measures the concentration of thiamine diphosphate (TDP), the primary active form of vitamin B1. Approximately 90 percent of vitamin B1 present in whole blood is TDP. Thiamine and thiamine monophosphate, which comprise the remaining 10 percent, are not measured. This test was developed, and its performance characteristics determined by the [facility] Department of Pathology and Laboratory Medicine. It has not been cleared or approved by the FDA. The [facility] Department of Pathology and Laboratory Medicine is regulated under CLIA as qualified to perform high-complexity testing. This test is used for clinical purposes. It should not be regarded as investigational or for research. Performed By: #### 5 763-8 #### [facility] CLIA [id number] [address] [place] [address] [place] Vit A SerPl-mCncon 4 Retinol [Mass/Vol] 0.43 mg/L Normal 0.30-1.20 [facility] Comment on above: Order Comment: Abelardoi manjeet Type: BLOOD SPECIMENOrdering Facility: [facility] Address: [address] [place] [address] Result Comment: This test was developed and its performance characteristics determined by [employer]. It has not been cleared or approved by the [place] Food and Drug Administration. This test was performed in a CLIA certified laboratory and is intended for clinical purposes. Performed By: #### 2 923-1 ####[facility] [id number] [place] [address] [place] Vit B12 [facility] 024 Cobalamin (Vitamin B12) [Mass/Vol] 911 pg/mL Normal 232-1245 [facility] Comment on above: Order Comment: Speci men Type: BLOOD SPECIMENOrdering Facility: [facility] Address: [address] [place] [address] Performed By: #### 2 731-8, 2284-8, 2132-9 ####[facility] [id number] [place] [address] [place] Zinc [facility] 04-[facility]-2024 Zinc [Mass/Vol] 47 ug/dL Low 60-120 [facility] Comment on above: Order Comment: Speci men Type: BLOOD SPECIMEN [facility] Address: [address] [place] [address] Result Comment: This test was developed, and its performance characteristics determined by the [facility] Department of Pathology and Laboratory Medicine. It has not been cleared or approved by the FDA. The [facility] Department of Pathology and Laboratory Medicine is regulated under CLIA as qualified to perform high-complexity testing. This test is used for clinical purposes. It should not be regarded as investigational or for research. Performed By: #### 5 763-8 #### [facility] CLIA [id number] [address] [place] [address] [place] No Panel Informationon 04-27 [...] discussed. Consent was given by the patient. [facility] No Panel Informationon 04-13 Bushra Nevarez NP [...] discussed. Consent was given by the patient. [facility] XR KNEE RT 3 VWSon 4 XR [...] Hardy MD on 04/06/2024 1:14 PM Normal [facility] ALL LDHon 03-23-2024 Interpretation and review of laboratory results Abnormal [facility] LDH [Catalytic activity/Vol] 79 U/L Low 81 - 234 U/L [facility] HCG ( test) Ql (U)o n 12-02-2023 Beta HCG ( test) Ql (U) Negative Normal NEG [facility] Comment on above: Performed By: #### 2 106-3 #### [facility] ([id number]) [address] [place] [address] HCG ( test) Ql (U)o n 11-04-2023 Beta HCG ( test) Ql (U) Negative Normal NEG [facility] Comment on above: Performed By: #### 2 106-3 #### [facility] ([id number]) [address] [place] [address] BASIC METABOLIC PANLon 10-19 Anion gap [Moles/Vol] 12 mmol/L Normal 5-15 [facility] Comment on above: Performed By: #### B MP #### [facility] ([id number]) [address], [address] [place] [address] Calcium [Mass/Vol] 9.7 mg/dL Normal 8.5-10.5 [facility] Comment on above: Performed By: #### B MP #### [facility] ([id number]) [address], [address] [place] [address] Chloride [Moles/Vol] 100 mmol/L Normal 98-109 [facility] Comment on above: Performed By: #### B MP #### [facility] ([id number]) [address], [address] [place] [address] CO2 [Moles/Vol] 25 mmol/L Normal 22-32 [facility] Comment on above: Performed By: #### B MP #### [facility] ([id number]) [address], [address] [place] [address] Creatinine [Mass/Vol] 0.72 mg/dL Normal 0.40-1.00 [facility] Comment on above: Result Comment: METH OD TRACEABLE TO IDMS STANDARD Performed By: #### B MP #### [facility] ([id number]) [address], [address] [place] [address] eGFR (CKD-EPI) NON-RACE DEPENDENT >90 Normal >59 [facility] Comment on above: Result Comment: Reported eGFR is based on the CKD-EPI 1 equation that does not use a race coefficient. Performed By: #### B MP #### [facility] ([id number]) [address], [address] [place] [address] Glucose [Mass/Vol] 89 mg/dL Normal 65-99 [facility] Comment on above: Performed By: #### B MP #### [facility] ([id number]) [address], [address] [place] [address] Potassium [Moles/Vol] 4.0 mmol/L Normal 3.5-5.0 [facility] Comment on above: Performed By: #### B MP #### [facility] ([id number]) [address], [address] [place] [address] Sodium [Moles/Vol] 137 mmol/L Normal 134-146 [facility] Comment on above: Performed By: #### B MP #### [facility] ([id number]) [address], [address] [place] [address] Urea nitrogen [Mass/Vol] 18 mg/dL Normal 5-23 [facility] Comment on above: Performed By: #### B MP #### [facility] ([id number]) [address] [place] [address] Basic Metabolic Panelon 09-28 Anion gap [Moles/Vol] 12 mmol/L 5 - 15 mmol/L [facility] Calcium [Mass/Vol] 9.7 mg/dL 8.5 - 10.5 mg/dL [facility] Chloride [Moles/Vol] 100 mmol/L 98 - 109 mmol/L [facility] CO2 [Moles/Vol] 25 mmol/L 22 - 32 mmol/L [facility] Creatinine [Mass/Vol] 0.72 mg/dL 0.40 - 1.00 mg/dL [facility] Comment on above: METHOD TRACEABLE TO IDMS STANDARD eGFR (CKD-EPI)non-race dependent - PINF [facility] Comment on above: Reported eGFR is based on the CKD-EPI 2020 equation that does not use a race coefficient. Glucose [Mass/Vol] 89 mg/dL 65 - 99 mg/dL [facility] Potassium [Moles/Vol] 4.0 mmol/L 3.5 - 5.0 mmol/L [facility] Sodium [Moles/Vol] 137 mmol/L 134 - 146 mmol/L [facility] Urea nitrogen [Mass/Vol] 18 mg/dL 5 - 23 mg/dL [place] [facility] XR ankle LT min 3V*on 2022 XR ankle LT min 3V* [facility] Other XR ankle LT min 3V* [facility] Other XR ankle LT min 3V* [address] [facility] [employer] Other XR ankle LT min 3V* [place] [address] [place] [employer] Other XR ankle LT min 3V* XRay Report [employer] Other XR ankle LT min 3V* Signed [employer] Other XR ankle LT min 3V* Patient: Susi Ortiz MR#: M [employer] Other XR ankle LT min 3V* [id number] [employer] Other XR ankle LT min 3V* : 1985 Acct:[id number] [employer] Other XR ankle LT min 3V* Age/Sex: 37 / F ADM Date: 12/13/22 [employer] Other XR ankle LT min 3V* Loc: XDUCLY Room: Type: REG CLI [employer] Other XR ankle LT min 3V* Attending Dr: Linda South HEALTHCARE ECONOMICS CONSULTANT [employer] Other XR ankle LT min 3V* Copies to: Linda South HEALTHCARE ECONOMICS CONSULTANT [employer] Other XR ankle LT min 3V* Ordering Provider: Linda South APRN [employer] Other XR ankle LT min 3V* Date of Service: 12/13/22 [employer] Other XR ankle LT min 3V* XR/XR ankle LT min 3V*: Acute left ankle pain [employer] Other XR ankle LT min 3V* LEFT ANKLE - 3 views [employer] Other XR ankle LT min 3V* CLINICAL DATA: Patient felt a pop at the ankle while walking this morning. Lateral pain and [facility] Other XR ankle LT min 3V* swelling. [employer] Other XR ankle LT min 3V* COMPARISON: LEFT FOOT 11/13/2021 [employer] Other XR ankle LT min 3V* AP, lateral and oblique views were obtained. There is no evidence of fracture or dislocation. [employer] Other XR ankle LT min 3V* The talar dome is intact. Posterior and plantar calcaneal spurs are visualized. There is diffuse [employer] Other XR ankle LT min 3V* soft tissue prominence related to body habitus. [employer] Other XR ankle LT min 3V* XR/XR ankle LT min 3V* [employer] Other XR ankle LT min 3V* IMPRESSION: [employer] Other XR ankle LT min 3V* NO ACUTE BONY FINDINGS. [employer] Other XR ankle LT min 3V* Impression dictated by: Diana Rojas M.D.12/13/2022 10:38 AM [employer] Other XR ankle LT min 3V* Dictation Location: [place] [address] [employer] Other XR ankle LT min 3V* Transcribed By: GENO 12/13/22 1038 [employer] Other XR ankle LT min 3V* Dictated By: Diana Rojas MD 12/13/22 1036 [employer] Other XR ankle LT min 3V* Signed By: [employer] Other XR ankle LT min 3V* 12/13/[address] HEAD WO CONon 08-19-2022 CT HEAD [...] MANPREET TORRES Date: 2022-08-19 18:23 Normal [facility] VITAMIN B1 (THIAMINE)on 03-29 Vit. B1, Whole Blood 113.1 nmol/L Normal 66.5-200.0 [facility] Comment on above: Performed By: #### F ETIBC, VITAD, B12FOL #### [facility] [address] [place] [address] [address] Gentry Harmon XR foot RT min 3V*on 022 XR foot RT min 3V* [facility] [employer] Other XR foot RT min 3V* [facility] [employer] Other XR foot RT min 3V* [address] [place] [address] [employer] Other XR foot RT min 3V* [place] [address] [employer] Other XR foot RT min 3V* XRay Report [employer] Other XR foot RT min 3V* Signed [employer] Other XR foot RT min 3V* Patient: Susi Ortiz MR#: M [employer] Other XR foot RT min 3V* [id number] [employer] Other XR foot RT min 3V* : 1985 Acct:[id number] [employer] Other XR foot RT min 3V* Age/Sex: 36 / F ADM Date: 04/16/22 [employer] Other XR foot RT min 3V* Loc: XDUCLY Room: Type: [facility] [employer] Other XR foot RT min 3V* Attending Dr: Christa JONES [employer] Other XR foot RT min 3V* Copies to: ROBERT Feliciano [employer] Other XR foot RT min 3V* Ordering Provider: ROBERT Feliciano [employer] Other XR foot RT min 3V* Date of Service: 04/16/22 [employer] Other XR foot RT min 3V* XR/XR foot RT min 3V*: Right foot pain [employer] Other XR foot RT min 3V* XR foot RT min 3V* 04/16/2022 6:45 PM [employer] Other XR foot RT min 3V* SIGNS AND SYMPTOMS: Popping sensation in right foot [employer] Other XR foot RT min 3V* PROTOCOL: Frontal, lateral, and oblique radiographs of the right [employer] Other XR foot RT min 3V* COMPARISON: 11/04/2018 [employer] Other XR foot RT min 3V* FINDINGS: [employer] Other XR foot RT min 3V* The bones are in anatomic alignment. Degenerative changes without evidence of fracture or [employer] Other XR foot RT min 3V* dislocation. There is diffuse soft tissue swelling. There is plantar and Achilles surface calc [employer] Other XR foot RT min 3V* aneal spurring. Degenerative changes are noted in the talonavicular joint. [employer] Other XR foot RT min 3V* XR/XR foot RT min 3V* [employer] Other XR foot RT min 3V* IMPRESSION: [employer] Other XR foot RT min 3V* No fracture. [employer] Other XR foot RT min 3V* There is diffuse soft tissue swelling which is new. [employer] Other XR foot RT min 3V* Mild degenerative changes are noted at the talonavicular junction with spurring at the plantar and [employer] Other XR foot RT min 3V* Achilles surface of the calcaneus. [employer] Other XR foot RT min 3V* Impression dictated by: Rosana Ventura M.D.04/16/2022 7:09 PM [employer] Other XR foot RT min 3V* Dictation Location: [place] [address] [employer] Other XR foot RT min 3V* Transcribed By: GENO 04/16/221908 [employer] Other XR foot RT min 3V* Dictated By: Rosana Ventura II, MD 04/16/221903 [employer] Other XR foot RT min 3V* Signed By: [employer] Other XR foot RT min 3V* 04/16/221908 [employer] Other CBC AUTO DIFFon 04-11-2022 BASO # 0.1 103/ul Normal 0.0-0.1 [facility] Comment on above: Performed By: #### F ETIBC, VITAD, B12FOL #### [facility] [address] [place] [address] Dr. Gentry Harmon Basophils/100 WBC (Bld) 0.5 % Normal 0.2-2.0 [facility] Comment on above: Performed By: #### F ETIBC, VITAD, B12FOL #### [facility] [address] [place] [address] Dr. Gentry Harmon EO # 0.2 103/ul Normal 0.0-0.7 [facility] Comment on above: Performed By: #### F ETIBC, VITAD, B12FOL #### [facility] [address] [place] [address] Dr. Gentry Harmon Eosinophils/100 WBC (Bld) 0.9 % Normal 0.9-7.0 [facility] Comment on above: Performed By: #### F ETIBC, VITAD, B12FOL #### [facility] [address] [place] [address] Dr. Gentry Harmon Erythrocyte distribution width (RBC) [Ratio] 14.3 % Normal 11.0-15.0 [facility] Comment on above: Performed By: #### F ETIBC, VITAD, B12FOL #### [facility] [address] [place] [address] Dr. Gentry Harmon Hematocrit (Bld) [Volume fraction] 41.9 % Normal 36.0-48.0 [facility] Comment on above: Performed By: #### F ETIBC, VITAD, B12FOL #### [facility] [address] [place] [address] Dr. Gentry Harmon Hemoglobin (Bld) [Mass/Vol] 13.4 g/dL Normal 12.0-16.0 [facility] Comment on above: Performed By: #### F ETIBC, VITAD, B12FOL #### [facility] [address] [place] [address] Dr. Gentry Harmon IG # 0.06 10e3/ul Critically high 0.00-0.03 [facility] Comment on above: Performed By: #### F ETIBC, VITAD, B12FOL #### [facility] [address] [place] [address] Dr. Gentry Harmon IG % 0.3 % Normal 0.0-0.5 [facility] Comment on above: Performed By: #### F ETIBC, VITAD, B12FOL #### [facility] [address] [place] [address] Dr. Gentry Harmon LYMPH # 5.9 103/ul Critically high 1.2-3.8 [facility] Comment on above: Performed By: #### F ETIBC, VITAD, B12FOL #### [facility] [address] [place] [address] Dr. Gentry Harmon Lymphocytes/100 WBC (Bld) 34.0 % Normal 20.5-60.0 [facility] Comment on above: Performed By: #### F ETIBC, VITAD, B12FOL #### [facility] [address] [place] [address] Dr. Gentry Harmon MANUAL DIFF REQ NO Normal [facility] Comment on above: Performed By: #### F ETIBC, VITAD, B12FOL #### [facility] [address] [place] [address] Dr. Gentry Harmon MCH (RBC) [Entitic mass] 28.9 pg Normal 26.7-34.0 [facility] Comment on above: Performed By: #### F ETIBC, VITAD, B12FOL #### [facility] [address] [place] [address] Dr. Gentry Harmon MCHC (RBC) [Mass/Vol] 32.0 g/dL Normal 29.9-35.2 [facility] Comment on above: Performed By: #### F ETIBC, VITAD, B12FOL #### [facility] [address] [place] [address] Dr. Gentry Harmon MCV (RBC) [Entitic vol] 90.3 fL Normal 81.0-99.0 [facility] Comment on above: Performed By: #### F ETIBC, VITAD, B12FOL #### [facility] [address] [place] [address] Dr. Gentry Harmon MONO # 1.3 103/ul Critically high 0.3-0.8 [facility] Comment on above: Performed By: #### F ETIBC, VITAD, B12FOL #### [facility] [address] [place] [address] Dr. Gentry Harmon Monocytes/100 WBC (Bld) 7.8 % Normal 1.7-12.0 [facility] Comment on above: Performed By: #### F ETIBC, VITAD, B12FOL #### [facility] [address] [place] [address] Dr. Gentry Harmon NEUT # 9.8 103/ul Critically high 1.4-6.5 [facility] Comment on above: Performed By: #### F ETIBC, VITAD, B12FOL #### [facility] [address] [place] [address] Dr. Gentry Harmon Neutrophils/100 WBC (Bld) 56.5 % Normal 43.0-75.0 [facility] Comment on above: Performed By: #### F ETIBC, VITAD, B12FOL #### [facility] [address] [place] [address] Dr. Gentry Harmon Platelet mean volume (Bld) [Entitic vol] 9.3 fL Critically low 9.5-13.5 [facility] Comment on above: Performed By: #### F ETIBC, VITAD, B12FOL #### [facility] [address] [place] [address] Dr. Gentry Harmon PLT 522 103/ul Critically high 150-450 [facility] Comment on above: Performed By: #### F ETIBC, VITAD, B12FOL #### [facility] [address] [place] [address] [address] Gentry Harmon RBC 4.64 106/ul Normal 4.20-5.40 [facility] Comment on above: Performed By: #### F ETIBC, VITAD, B12FOL #### [facility] [address] [place] [address] [address] Gentry Harmon WBC 17.3 103/ul Critically high 4.0-11.0 [facility] Comment on above: Performed By: #### F ETIBC, VITAD, B12FOL #### [facility] [address] [place] [address] Dr. Gentry Harmon IRON AND TIBCon 04-11-2022 % SATURATION 15.7 % Normal [facility] Comment on above: Performed By: #### F ETIBC, VITAD, B12FOL #### [facility] [address] [place] [address] [address] eGntry Harmon Iron [Mass/Vol] 58.0 ug/dL Normal 50.0-170.0 [facility] Comment on above: Performed By: #### F ETIBC, VITAD, B12FOL #### [facility] [address] [place] [address] Dr. Gentry Harmon TIBC DIRECT 369.0 ug/dL Normal 250.0-450. 0 [facility] Comment on above: Performed By: #### F ETIBC, VITAD, B12FOL #### [facility] [address] [place] [address] Dr. Gentry Harmon PREALBUMINon 04-11-2022 Prealbumin [Mass/Vol] 27.8 mg/dL Normal 20.9-45.5 [facility] Comment on above: Performed By: #### C MP, PREALB #### [facility] [address] [place] [address] Dr. Gentry Harmon PROF 14(COMP METB)on 022 Albumin [Mass/Vol] 3.3 g/dL Critically low 3.4-5.0 [facility] Comment on above: Performed By: #### C MP, PREALB #### [facility] [address] [address] [address] Gentry Harmon Albumin/Globulin [Mass ratio] 0.8 {ratio} Normal [facility] Comment on above: Performed By: #### C MP, PREALB #### [facility] [address] [address] [address] Gentry Harmon ALP [Catalytic activity/Vol] 89 U/L Normal 46-116 [facility] Comment on above: Performed By: #### C MP, PREALB #### [facility] [address] [address] [address] Gentry Harmon ALT [Catalytic activity/Vol] 16 U/L Normal 14-59 [facility] Comment on above: Performed By: #### C MP, PREALB #### [facility] [address] [address] [address] Gentry Harmon Anion gap [Moles/Vol] 11.3 mmol/L Normal [facility] Comment on above: Performed By: #### C MP, PREALB #### [facility] [address] [address] [address] Gentry Harmon AST [Catalytic activity/Vol] 11 U/L Critically low 15-37 [facility] Comment on above: Performed By: #### C MP, PREALB #### [facility] [address] [address] [address] Gentry Harmon Bilirubin [Mass/Vol] 0.1 mg/dL Critically low 0.2-1.0 [facility] Comment on above: Performed By: #### C MP, PREALB #### [facility] [address] [address] [address] Gentry Harmon Calcium [Mass/Vol] 8.8 mg/dL Normal 8.5-10.1 [facility] Comment on above: Performed By: #### C MP, PREALB #### [facility] [address] [address] [address] Gentry Harmon Chloride [Moles/Vol] 103 mmol/L Normal 98-107 [facility] Comment on above: Performed By: #### C MP, PREALB #### [facility] [address] [place] [address] Dr. Gentry Harmon CO2 [Moles/Vol] 25.6 mmol/L Normal 21.0-32.0 [facility] Comment on above: Performed By: #### C MP, PREALB #### [facility] [address] [place] [address] Dr. Gentry Harmon Creatinine [Mass/Vol] 0.81 mg/dL Normal 0.55-1.02 [facility] Comment on above: Performed By: #### C MP, PREALB #### [facility] [address] [place] [address] Dr. Gentry Harmon EGFR-AF UZBEK >60 Normal >=60 [facility] Comment on above: Performed By: #### C MP, PREALB #### [facility] [address] [place] [address] Dr. Gentry Harmon EGFR-NON AF UZBEK >60 Normal >=60 [facility] Comment on above: Performed By: #### C MP, PREALB #### [facility] [address] [place] [address] Dr. Gentry Harmon Globulin (S) [Mass/Vol] 4.4 g/dL Normal [facility] Comment on above: Performed By: #### C MP, PREALB #### [facility] [address] [place] [address] Dr. Gentry Harmon Glucose [Mass/Vol] 101 mg/dL Normal 74-106 [facility] Comment on above: Performed By: #### C MP, PREALB #### [facility] [address] [place] [address] Dr. Gentry Harmon Potassium [Moles/Vol] 3.9 mmol/L Normal 3.5-5.1 [facility] Comment on above: Performed By: #### C MP, PREALB #### [facility] [address] [place] [address] Dr. Gentry Harmon Protein [Mass/Vol] 7.7 g/dL Normal 6.4-8.2 [facility] Comment on above: Performed By: #### C MARY JANE, PREALB #### [facility] [address] [place] [address] Dr. Gentry Harmon Sodium [Moles/Vol] 136 mmol/L Normal 136-145 [facility] Comment on above: Performed By: #### C MARY JANE, PREALB #### [facility] [address] [place] [address] Dr. Gentry Harmon Urea nitrogen [Mass/Vol] 10.0 mg/dL Normal 7.0-18.0 [facility] Comment on above: Performed By: #### C MARY JANE, PREALB #### [facility] [address] [place] [address] Dr. Gentry Harmon Urea nitrogen/Creatini ne [Mass ratio] 12.3 mg/mg Normal [facility] Comment on above: Performed By: #### C MARY JANE, PREALB #### [facility] [address] [place] [address] Dr. Gentry Harmon VIT B12 AND FOLATEon 022 Cobalamin (Vitamin B12) [Mass/Vol] 226.0 pg/mL Normal 193.0-986. 0 [facility] Comment on above: Performed By: #### F ETIBC, VITAD, B12FOL #### [facility] [address] [place] [address] Dr. Gentry Harmon FOLATE 3.20 ng/mL Critically low 8.60-58.90 [facility] Comment on above: Performed By: #### F ETIBC, VITAD, B12FOL #### [facility] [address] [place] [address] Dr. Gentry Harmon VITAMIN D 25 OHon 04-11-2022 VIT D 25-OH 23.6 ng/mL Normal [facility] Comment on above: Performed By: #### F ETIBC, VITAD, B12FOL #### [facility] [address] [place] [address] Dr. Gentry Harmon VIT D RANGES SEE BELOW Normal [facility] Comment on above: Result Comment: <20 ng/mL Vit D deficient 20 - <30 ng/mL Vit D insufficient 30 - 100 ng/mL Vit D sufficient >100 ng/mL Potential Toxicity Performed By: #### F ETIBC, VITAD, B12FOL #### [facility] [address] [address] [address] Gentry Harmon XR LSPINE 2_3 VIEWSon [...] ESTELLA ALVES Date: 2022-04-01 19:22 Normal [facility] CT ABD/PEL W IVCONon 022 CT [...] lesions. Lower thorax: Lower lungs are clear. Climatology Professor (topogram) images: Unremarkable. IMPRESSION: No acute process in the abdomen or pelvis. [employer] Machinery Mechanic: PSCB Transcribe Date/Time: Feb 12 2022 3:04P Dictated by : MARIELA GRECO MD This examination was interpreted and the report reviewed and electronically signed by: MARIELA GRECO MD on Feb 12 2022 3:19PM EST [id number] Normal [facility] NURSING PROGon 02-12-2022 NURSING PROG HNO ID: [id number] Author: Elizabeth Stephens RN Service: Radiology Author [...] 12, 2022 TIME: 2:30 PM [facility] ANES POSTPROC EVALon 022 ANES POSTPROC EVAL HNO ID: [id number] Author: Carolina Pink MD Service: Anesthesiology Author [...] Granda MD; Carolina Pink MD; Sami Murcia APRN.GASSER MACHINE OPERATOR Responsible Provider: Carolina Pink MD Anesthesia Type: [...] Documentation SIGNATURE: Carolina Pink MD PATIENT NAME: Suis Milesenship DATE: December 18, 2021 TIME: 3:11 PM CSN: [id number] Normal [facility] ANES PRE-OPon 12-18-2021 ANES PRE-OP HNO ID: [id number] Author: Carolina Pink MD Service: Anesthesiology Author Type: Physician Type: Anesthesia Preprocedure Evaluation Filed: 12/18/2021 11:23 AM Note Text: ANESTHESIOLOGY DAY OF SURGERY NOTE : 1985 Procedure Information Date/Time: 12/18/21 1115 Scheduled providers: Joe Granda MD; Carolina Pink MD; Sami Murcia APRN.GASSER MACHINE OPERATOR Procedure: EGD DIAGNOSTIC Location: Procedures Estimated body [...] SIGNATURE: Carolina Pink MD PATIENT NAME: Susi Raineship DATE: December 18, 2021 TIME: 11:22 AM CSN: [id number] Normal [facility] EGD DIAGNOSTICon 12-18-2021 [facility] Upper GI endoscopyon 022 Upper GI endoscopy [facility] Gastrointestinal Endoscopy Patient Name: Susi [...] by the physician, the nurse and the acid treater in the pre-procedure area in the endoscopy [...] previously scheduled. Procedure Code(s): --- Professional --- 35351, Esophagogastroduodenoscopy, flexible, transoral; diagnostic, including collection of specimen(s) by brushing or washing, when performed (separate procedure) Diagnosis Code(s): --- Professional --- Z98.84, Bariatric surgery status R10.13, Epigastric pain R12, Heartburn K95.89, Other complications of other bariatric procedure CPT copyright 2019 [employer]. All rights reserved. The codes documented in this report are preliminary and upon medical record coder review may be revised to meet current compliance requirements. Attending Participation: I personally performed the entire procedure. Scope In: 12:23:05 PM Scope Out: 12:26:48 PM MD Joe Gomez MD 12/18/2021 12:32:03 PM This report has been signed electronically by Joe Granda MD Number of Addenda: 0 Note Initiated On: 12/18/2021 12:11 PM Estimated Blood Loss: Estimated blood loss: none. Normal [facility] HISTORY PHYSICALon HISTORY PHYSICAL HNO ID: [id number] Author: Melissa Olivas PA-C Service: ? Author Type: Physician Cartridge Belt Puncher Type: HANDP Filed: 12/10/2021 1:13 PM Note Text: HISTORY AND PHYSICAL EXAMINATION SERVICE DATE: 12/05/2021 SERVICE TIME: 1:12 PM PRIMARY CARE PHYSICIAN: Rosaura Estrada, BARIATRIC NURSE, BARIATRIC NURSE This is a virtual visit using alternative [...] Negative for: dysuria, frequent urination and hematuria. FINANCIAL COORDINATOR: +amenorrhea with IUD Endocrine: Negative for: diabetes [...] daily. Britt (more content not included)... Normal [facility] XR foot LT min 3V*on 022 XR foot LT min 3V* [facility] [employer] Other XR foot LT min 3V* [facility] [employer] Other XR foot LT min 3V* [address] [facility] [employer] Other XR foot LT min 3V* [place] [address] [place] [employer] Other XR foot LT min 3V* XRay Report [employer] Other XR foot LT min 3V* Signed [employer] Other XR foot LT min 3V* Patient: Susi Ortiz MR#: M [employer] Other XR foot LT min 3V* [id number] [employer] Other XR foot LT min 3V* : 1985 Acct:[id number] [employer] Other XR foot LT min 3V* Age/Sex: 36 / F ADM Date: 11/13/21 [employer] Other XR foot LT min 3V* Loc: XDUCLY Room: Type: [facility] [employer] Other XR foot LT min 3V* Attending Dr: Christa JONES [employer] Other XR foot LT min 3V* Ordering Provider: ROBERT Feliciano [employer] Other XR foot LT min 3V* Date of Service: 11/13/21 [employer] Other XR foot LT min 3V* XR/XR foot LT min 3V*: Left foot pain [employer] Other XR foot LT min 3V* Copies to: ROBERT Feliciano [employer] Other XR foot LT min 3V* Left foot 11/13/2021. [employer] Other XR foot LT min 3V* CLINICAL DATA: Left foot pain. N [employer] Other XR foot LT min 3V* FINDINGS: 3 views of the left foot were obtained and are compared with a prior study 03/21/2019. [employer] Other XR foot LT min 3V* No acute fracture or dislocation is identified. There is calcaneal spurring. No other bony [employer] Other XR foot LT min 3V* abnormality is seen. No localized soft tissue swelling is noted. [employer] Other XR foot LT min 3V* XR/XR foot LT min 3V* [employer] Other XR foot LT min 3V* IMPRESSION: Calcaneal spurring. No acute bony abnormality. [employer] Other XR foot LT min 3V* Impression dictated by: Pawan Gallardo Jr., M.D.11/13/2021 11:30 AM [employer] Other XR foot LT min 3V* Dictation Location: [place] [address] [employer] Other XR foot LT min 3V* Transcribed By: GENO 11/13/21 1130 [employer] Other XR foot LT min 3V* Dictated By: Pawan Gallardo Jr, MD 11/13/21 1127 [employer] Other XR foot LT min 3V* Signed By: [employer] Other XR foot LT min 3V* 11/13/21 1130 [employer] Other WELD TECHNICIAN - Office Visiton 04-0 WELD TECHNICIAN - Office Visit Diagnoses/Problems Assessed Adnexal mass (625.8) (N94.89) Pelvic pain (R10.2) Orders Alpha Fetoprotein, Serum; Status:Active; Requested for:[id number]; Cancer Antigen, 125; Status:Active; Requested for:[id number]; Cancer Antigen, GI Ca 19-9; Status:Active; Requested for:[id number]; Carcinoembryonic Antigen; Status:Active; Requested for:[id number]; HCG, Beta Quantitative; Status:Active; Requested for:[id number]; LDH; Status:Active; Requested for:[id number]; IO Ultrasound, pelvic complete; Status:Hold For - [...] options and next steps. Plan: [x ] FINANCIAL COORDINATOR ultrasound, patient is to contact our office to schedule [x ] we will check tumor markers [x ] our office staff will reach out to the patient to sign medical record release forms for her operative procedures performed at [facility] [x ] patient is to follow-up with me once this work-up is complete A copy of this note was sent electronically to Dr. Cherri Horvath MD Reproductive Endocrinology and Infertility [facility] [phone] [place] [phone] [place] Provider Impressions Susi is a 36-year-old female [...] options and next steps. Plan: [x ] FINANCIAL COORDINATOR ultrasound, patient is to contact our office to schedule [x ] we will check tumor markers [x ] our office staff will reach out to the patient to sign medical record release forms for her operative procedures performed at [facility] [x ] patient is to follow-up with me once this work-up is complete A copy of this note was sent electronically to Dr. Cherri Horvath MD Reproductive Endocrinology and Infertility [facility] [phone] Ralph [phone] [place] Appointment Duration:. 45 minutes; greater than half [...] Cyst on Right Ovary. History of Present Trtankk1309/30/2021 9:15AM SUSI ORTIZ , 36 year is contacted for an (audio-visual, or audio only) Telehealth visit. Today's visit was provided through telemedicine conferencing: Using [employer] platform. Consent: The concept of telemedicine? has [...] She went in for evaluation with her WELD TECHNICIAN in early January 2021, and was subsequently found to have a complex ovarian cyst. She was taken (more content not included)... Normal [facility] Tobacco Screening.on 022 Fall risk assessment a) No falls within the last year DL-TZJID-Aqah ker 206A [facility] Work Phone: Last menstrual period start date MIRENA ZJ-FUVJS-Pmtp ker 206A IV[facility] Work Phone: Tobacco use status CPHS b) No VI-VZTPP-Eyra ker 206A IV[facility] Work Phone: POCT urine pregnancyon 04-06 Beta HCG ( test) Ql (U) Negative NEGATIVE [facility] [place], [place] Comment on above: Specimens with hCG l evels near the threshold of the test (25 mIU/mL) may give a negative or indeterminate result. In such cases, another test should be performed with a new specimen in 48-72 hours. If early is suspected clinically in this setting, correlation with quantitative serum b-hCG level is suggested. TESTING PERFORMED AT [place] [id number] Surgical Pathologyon Surgical Pathology (NOTE) -- Diagnosis [...] BIOPSY TO RULE OUT H. PYLORI STAIN [place]-jonhson tissue fragments, each 0.2 x 0.2 x [...] SURGICAL PATHOLOGY CONSULTATION Patient Name: SUSI ORTIZ [facility] Rec: [id number] Path Number: [id number] [facility] [employer] [facility] ANATOMIC PATHOLOGY [address] [place] [address]. [place], [place] [address] [facility] Comment on above: Performed By: #### P PPVS #### [facility] [address] [place] [address] [id number] Physical Therapist: Tito Balderrama MD [id number] 04-04-2020 SARS-CoV-2 Not Detected Normal Not Detected [facility] Comment on above: Result Comment: (NOT E) This nucleic acid amplification test was developed and its performance characteristics determined by [employer]. Nucleic acid amplification tests include PCR and [...] detected) result in this assay. Performed At: [facility] [address] [facility] [place] [id number] You Naqvi MD Ph:[phone] Performed By: #### A COV #### [facility] [address] [place], [place] [id number] Physical Therapist: Olivier Espinosa MD Covid-19 [facility] 2019 SARS-CoV-2, ASH Not Detected Not Detected [place], [place] Comment on above: (NOTE) This nucleic acid amplification test was developed and its performance characteristics determined by [employer]. Nucleic acid amplification tests include PCR and [...] detected) result in this assay. Performed At: [facility] [address] [employer] [facility], [place] [id number] You Naqvi MD Ph:[phone] Drug Scr,Pain Mgmt Uon 01-09 7-Aminoclonazep, Ur Not Detected Normal [facility] Comment on above: Performed By: #### A DAUPM ####[facility] [place] [address] Acetaminophen mass conc Not Detected Normal [facility] Comment on above: Performed By: #### A DAUPM ####[facility] [place] [address] Zcnjl-WH-Ptkbju, Ur Not Detected Normal [facility] Comment on above: Performed By: #### A DAUPM ####[facility] [place] [address] Alprazolam, Ur Not Detected Normal [facility] Comment on above: Performed By: #### A DAUPM ####[facility] [place] [address] Amphetamine, Ur Not Detected Normal [facility] Comment on above: Performed By: #### A DAUPM ####[facility] [place] [address] Barbiturates, Ur Not Detected Normal [facility] Comment on above: Performed By: #### A DAUPM ####[facility] [place] [address] Benzoylecgonine, Ur Not Detected Normal [facility] Comment on above: Performed By: #### A DAUPM ####[address] [address] Buprenorphine, Ur Not Detected Normal [facility] Comment on above: Performed By: #### A DAUPM ####[facility] [facility] [place] [address] Carisoprodol, Ur Not Detected Normal [facility] Comment on above: Result Comment: (NOT E)The carisoprodol immunoassay has cross-reactivity to carisoprodoland meprobamate. Performed By: #### A DAUPM ####[facility] [place] [address].[place] [address] Clonazepam, Ur Not Detected Normal [facility] Comment on above: Performed By: #### A DAUPM ####[facility] [place] [address].[place] [address] Codeine, Ur Not Detected Normal [facility] Comment on above: Performed By: #### A DAUPM ####[facility] [place] [address].[place] [address] Creatinine 52.1 mg/dL Normal 20.0-400.0 [facility] Comment on above: Performed By: #### A DAUPM ####[facility] [place] [address].[place] [address] Diazepam, Ur Not Detected Normal [facility] Comment on above: Performed By: #### A DAUPM ####[facility] [place] [address] EER Hi Res Interp Ur See Note Normal [facility] Comment on above: Result Comment: (NOT E)Access Eyeview Enhanced Report using either link below:-Direct access: [email or web address] Username, Password: [email or web address]: [email or web address] by [employer],[address] [place] [address] orb.[employer], Ari Lowe MD, Lab. DirectorPerformed at [facility] [address] [place] [address] Performed By: #### A DAUPM ####[facility] [place] [address], [place] [address] Fentanyl, Ur Not Detected Normal [facility] Comment on above: Performed By: #### A DAUPM ####[address] [place] [address] Glucose mass conc Not Detected Normal [facility] Comment on above: Performed By: #### A DAUPM ####[address] [place] [address] Hydrocodone, Ur Not Detected Normal [facility] Comment on above: Performed By: #### A DAUPM ####[facility] [place] [address] [place] [address] Hydromorphone, Ur Not Detected Normal [facility] Comment on above: Performed By: #### A DAUPM ####[facility] [place] [address] [place] [address] Lorazepam, Ur Not Detected Normal [facility] Comment on above: Performed By: #### A DAUPM ####[address] [place] [address] Marijuana Metab, Ur Not Detected Normal [facility] Comment on above: Performed By: #### A DAUPM ####[address] [place] [address] MDA, Ur Not Detected Normal [facility] Comment on above: Performed By: #### A DAUPM ####[address] [place] [address] MDEA, Nikki, Ur Not Detected Normal [facility] Comment on above: Performed By: #### A DAUPM ####[address] [address] MDMA, Ecstasy, Ur Not Detected Normal [facility] Comment on above: Performed By: #### A DAUPM ####[facility] [place] [address] Meperidine metab, Ur Not Detected Normal [facility] Comment on above: Performed By: #### A DAUPM ####[address] [address] Methadone, Ur Not Detected Normal [facility] Comment on above: Performed By: #### A DAUPM ####[address] [address] Methamphetamine, Ur Not Detected Normal [facility] Comment on above: Performed By: #### A DAUPM ####[address] [address] Methylphenidate Not Detected Normal [facility] Comment on above: Performed By: #### A DAUPM ####[address] [address] Midazolam, Ur Not Detected Normal [facility] Comment on above: Performed By: #### A DAUPM ####[address] [address] Morphine, Ur Not Detected Normal [facility] Comment on above: Performed By: #### A DAUPM ####[address] [address] Norbuprenorphine, Ur Not Detected Normal [facility] Comment on above: Performed By: #### A DAUPM ####[facility] [facility] [place] [address] Nordiazepam, Ur Not Detected Normal [facility] Comment on above: Performed By: #### A DAUPM ####[facility] [facility] [place] [address] Norfentanyl, Ur Not Detected Normal [facility] Comment on above: Performed By: #### A DAUPM ####[facility] [facility] [place] [address] Norhydrocodone, Ur Not Detected Normal [facility] Comment on above: Performed By: #### A DAUPM ####[facility] [facility] [place] [address] Noroxycodone, Ur Not Detected Normal [facility] Comment on above: Performed By: #### A DAUPM ####[facility] [facility] [place] [address] Noroxymorphone, Ur Not Detected Normal [facility] Comment on above: Performed By: #### A DAUPM ####[facility] [facility] [place] [address] Oxazepam, Ur Not Detected Normal [facility] Comment on above: Performed By: #### A DAUPM ####[facility] [place] [address].[place] [address] Oxycodone, Ur Not Detected Normal [facility] Comment on above: Performed By: #### A DAUPM ####[facility] [place] [address].[place] [address] Oxymorphone, Ur Not Detected Normal [facility] Comment on above: Performed By: #### A DAUPM ####[facility] [place] [address] Pain Mgt [address]g Handley, Ur See Below Normal [facility] Comment on above: Result Comment: (NOT E)Methodology: Qualitative Enzyme Immunoassay and Qualitative LiquidChromatography-Time of Flight-Mass [...] was developed and its performance characteristicsdetermined by [employer]. The U.S. Food and DrugAdministration has not approved or cleared this test; however, FDAclearance or approval is not currently required for clinical use.The results are not intended to be used as the sole means forclinical diagnosis or patient management decisions. Performed By: #### A DAUPM ####[place] [address] [place] [address] PCP, Ur Not Detected Normal [facility] Comment on above: Performed By: #### A DAUPM ####[address] [address] Phentermine, Ur Not Detected Normal [facility] Comment on above: Performed By: #### A DAUPM ####[address] [address] P[address] Mg Drg Handley Int Ur Consistent Normal [facility] Comment on above: Result Comment: (NOTE) __DRUGS EXPECTED:NO DRUGS EXPECTED ____CONSISTENT with medications provided:NO DRUGS DETECTED ____INTERPRETIVE INFORMATION:Pain Mgt Handley, High Res/EMIT, Ur, InterpInterpretation depends on accuracy and completeness of patientmedication information submitted by client. Performed By: #### A DAUPM ####[facility] [place] [address] [place] [address] Propoxyphene, Ur Not Detected Normal [facility] Comment on above: Performed By: #### A DAUPM ####[facility] [place] [address] Tapentadol o Sul, Ur Not Detected Normal [facility] Comment on above: Performed By: #### A DAUPM ####[facility] [place] [address] Tapentadol, Ur Not Detected Normal [facility] Comment on above: Performed By: #### A DAUPM ####[facility] [place] [address] [place] [address] Temazepam, Ur Not Detected Normal [facility] Comment on above: Performed By: #### A DAUPM ####[facility] [facility] [place] [address] Tramadol, Ur Not Detected Normal [facility] Comment on above: Performed By: #### A DAUPM ####[facility] [facility] [place] [address] Zolpidem, Ur Not Detected Normal [facility] Comment on above: Performed By: #### A DAUPM ####[facility] [facility] [place] [address] Drug Scr,Pain Mgmt Uon 01-06 Drugs Expected, Ur NONE Normal [facility] Comment on above: Performed By: #### A DAUPM ####[facility] [place] [address] Vital Signs Date Time Vital Sign Value Performing Clinician Facility 03-01-2025 16:58-0400 Body height 162.56 cm [facility] 03-01-2025 16:58-0400 Body mass index (BMI) [Ratio] 70.7 kg/m2 [facility] 03-01-2025 16:58-0400 Body temperature 97.6 [degF] [facility] 03-01-2025 16:58-0400 Body weight 186.88 kg [facility] 03-01-2025 16:58-0400 Diastolic blood pressure 85 mm[Hg] [facility] 03-01-2025 16:58-0400 Heart rate 114 /min [facility] 03-01-2025 16:58-0400 Respiratory rate 18 /min [facility] 03-01-2025 16:58-0400 SaO2% (BldA) [Mass fraction] 95 % [facility] 03-01-2025 16:58-0400 Systolic blood pressure 147 mm[Hg] [facility] 02-06-2025 14:48-0400 Body height 162.[address] [facility] 02-06-2025 14:48-0400 Body mass index (BMI) [Ratio] 71.58 kg/m2 Mayela Barnhart RD [facility] 02-06-2025 14:48-0400 Body weight 189.[address] [facility] 01-23-2025 16:29-0400 Body height 162.[address] [facility] 01-10-2025 10:58-0400 Body mass index (BMI) [Ratio] 73.29 kg/m2 Amina Nieto MD Work Phone: [facility] 01-10-2025 10:58-0400 Body weight 193.69 kg Amina Nieto MD Work Phone: [facility] 01-02-2025 07:48-0400 Body height 162.[address] Work Phone: [facility] 01-02-2025 07:48-0400 Body mass index (BMI) [Ratio] 73.29 kg/m2 Karon Monsivais RD Work Phone: [facility] 01-02-2025 07:48-0400 Body weight 193.[address] Work Phone: [facility] Comment on above: verbal, per patient 11-29-2024 10:54-0400 Body mass index (BMI) [Ratio] 73.29 kg/m2 Amina Nieto MD Work Phone: [facility] 11-29-2024 10:54-0400 Body weight 193.69 kg Amina Nieto MD Work Phone: [facility] 10-05-2024 13:37-0400 Body mass index (BMI) [Ratio] 73.29 kg/m2 Amina Nieto MD Work Phone: [facility] 10-05-2024 13:37-0400 Body weight 193.69 kg Amina Nieto MD Work Phone: [facility] 09-14-2024 14:06-0400 Body height 162.6 cm Mariia Lowe PA Work Phone: [facility] 09-14-2024 14:06-0400 Body mass index (BMI) [Ratio] 73.81 kg/m2 Mariia Lowe PA Work Phone: [facility] 09-14-2024 14:06-0400 Body weight 195.05 kg Mariia Lowe PA Work Phone: [facility] 09-14-2024 14:06-0400 Diastolic blood pressure 82 mm[Hg] Mariia Lowe PA Work Phone: [facility] 09-14-2024 14:06-0400 Systolic blood pressure 126 mm[Hg] Mariia Lowe PA Work Phone: [facility] 09-05-2024 14:25-0400 Body height 162.56 cm [facility] 09-05-2024 14:25-0400 Body mass index (BMI) [Ratio] 73.4 kg/m2 [facility] 09-05-2024 14:25-0400 Body temperature 98.2 [degF] [facility] 09-05-2024 14:25-0400 Body weight 194.13 kg [facility] 09-05-2024 14:25-0400 Diastolic blood pressure 67 mm[Hg] [facility] 09-05-2024 14:25-0400 Heart rate 74 /min [facility] 09-05-2024 14:25-0400 Respiratory rate 18 /min [facility] 09-05-2024 14:25-0400 SaO2% (BldA) [Mass fraction] 99 % [facility] 09-05-2024 14:25-0400 Systolic blood pressure 109 mm[Hg] [facility] 08-08-2024 09:32-0500 Body mass index (BMI) [Ratio] 67.29 kg/m2 Amina Nieto MD Work Phone: [facility] 08-08-2024 09:32-0500 Body weight 177.81 kg Amina Nieto MD Work Phone: [facility] 08-08-2024 07:47-0500 Body height 162.[address] Work Phone: [facility] 08-08-2024 07:47-0500 Body mass index (BMI) [Ratio] 67.29 kg/m2 Karon Macarioi RD Work Phone: [facility] 08-08-2024 07:47-0500 Body weight 177.[address] Work Phone: [facility] Comment on above: verbal, per patient 08-03-2024 13:10-0500 Diastolic blood pressure 84 mm[Hg] Peyman Holt MD Work Phone: [facility] 08-03-2024 13:10-0500 Heart rate 88 /min Peyman Holt MD Work Phone: [facility] 08-03-2024 13:10-0500 Respiratory rate 20 /min Peyman Holt MD Work Phone: [facility] 08-03-2024 13:10-0500 SaO2% (BldA) [Mass fraction] 96 % Peyman Holt MD Work Phone: [facility] 08-03-2024 13:10-0500 Systolic blood pressure 146 mm[Hg] Peyman Holt MD Work Phone: [facility] 08-03-2024 13:05-0500 Body height 162.6 cm Peyman Holt MD Work Phone: [facility] 08-03-2024 13:05-0500 Body mass index (BMI) [Ratio] 73.26 kg/m2 Peyman Holt MD Work Phone: [facility] 08-03-2024 13:05-0500 Body weight 193.69 kg Peyman Holt MD Work Phone: [facility] 07-21-2024 10:52-0500 Body mass index (BMI) [Ratio] 74.05 kg/m2 Jamie Cherri DO Work Phone: [facility] 07-21-2024 10:52-0500 Body weight 195.68 kg Jamie Cherri DO Work Phone: [facility] 07-21-2024 10:52-0500 Diastolic blood pressure 80 mm[Hg] Jamie Cherri DO Work Phone: [facility] 07-21-2024 10:52-0500 Systolic blood pressure 124 mm[Hg] Jamie Cherri DO Work Phone: [facility] 06-15-2024 18:29-0500 Body height 162.56 cm [facility] 06-15-2024 18:29-0500 Body mass index (BMI) [Ratio] 71.2 kg/m2 [facility] 06-15-2024 18:29-0500 Body temperature 97.7 [degF] [facility] 06-15-2024 18:29-0500 Body weight 188.24 kg [facility] 06-15-2024 18:29-0500 Diastolic blood pressure 82 mm[Hg] [facility] 06-15-2024 18:29-0500 Heart rate 105 /min [facility] 06-15-2024 18:29-0500 Respiratory rate 18 /min [facility] 06-15-2024 18:29-0500 SaO2% (BldA) [Mass fraction] 98 % [facility] 06-15-2024 18:29-0500 Systolic blood pressure 143 mm[Hg] [facility] 05-05-2024 10:53-0500 Body height 162.[address] Work Phone: [facility] 05-05-2024 10:53-0500 Body mass index (BMI) [Ratio] 63.17 kg/m2 Karon Monsivais RD Work Phone: [facility] 05-05-2024 10:53-0500 Body weight 166.[address] Work Phone: [facility] Comment on above: verbal, per patient 04-27-2024 11:49-0400 Body mass index (BMI) [Ratio] 63.48 kg/m2 Bushra Roque ALBERT Work Phone: [facility] 04-27-2024 11:49-0400 Body weight 167.74 kg Bushra Roque [employer] Work Phone: [facility] 04-19-2024 11:15-0400 Body mass index (BMI) [Ratio] 63.2 kg/m2 Amina Nieto MD Work Phone: [facility] 04-19-2024 11:15-0400 Body weight 167.01 kg Amina Nieto MD Work Phone: [facility] 03-07-2024 15:02-0400 Body height 162.6 cm Jamie Cherri DO Work Phone: [facility] 03-07-2024 15:02-0400 Body mass index (BMI) [Ratio] 69.83 kg/m2 Jamie Cherri DO Work Phone: [facility] 03-07-2024 15:02-0400 Body weight 184.52 kg Jamie Cherri DO Work Phone: [facility] 03-07-2024 15:02-0400 Diastolic blood pressure 70 mm[Hg] Jamie Cherri DO Work Phone: [facility] 03-07-2024 15:02-0400 Systolic blood pressure 120 mm[Hg] Jamie Cherri DO Work Phone: [facility] 11-03-2023 10:45-0400 Body mass index (BMI) [Ratio] 63.34 kg/m2 Amina Nieto MD Work Phone: [facility] 11-03-2023 10:45-0400 Body weight 167.38 kg Amina Nieto MD Work Phone: [facility] 11-02-2023 12:53-0400 Body mass index (BMI) [Ratio] 63.34 kg/m2 Jayshree Huffman APRN.CNP Work Phone: [facility] 11-02-2023 12:53-0400 Body weight 167.38 kg Jayshree Huffman HEALTHCARE ECONOMICS CONSULTANT.BARIATRIC NURSE Work Phone: [facility] 11-02-2023 10:22-0400 Body height 162.[address] Work Phone: [facility] 11-02-2023 10:22-0400 Body mass index (BMI) [Ratio] 63.48 kg/m2 Tania Sayra RD Work Phone: [facility] 11-02-2023 10:22-0400 Body weight 167.[address] Work Phone: [facility] Comment on above: verbal 10-20-2023 11:35-0400 Body height 162.6 cm [facility] 2 [facility] 10-20-2023 11:35-0400 Body mass index (BMI) [Ratio] 63.34 kg/m2 [facility] 2 [facility] 10-20-2023 11:35-0400 Body weight 167.38 kg [facility] 2 [facility] 09-07-2023 09:30-0400 Body height 162.6 cm Jayshree Huffman APRN.BARIATRIC NURSE Work Phone: [facility] 09-07-2023 09:30-0400 Body temperature 98.01 [degF] Jayshree Huffman HEALTHCARE ECONOMICS CONSULTANT.BARIATRIC NURSE Work Phone: [facility] 09-07-2023 09:30-0400 Body weight 169.87 kg Jayshree Huffman HEALTHCARE ECONOMICS CONSULTANT.BARIATRIC NURSE Work Phone: [facility] 09-07-2023 09:30-0400 Diastolic blood pressure 81 mm[Hg] Jayshree Huffman HEALTHCARE ECONOMICS CONSULTANT.BARIATRIC NURSE Work Phone: [facility] 09-07-2023 09:30-0400 Heart rate 80 /min Jayshree Huffman APRN.BARIATRIC NURSE Work Phone: [facility] 09-07-2023 09:30-0400 Systolic blood pressure 107 mm[Hg] Jayshree Huffman HEALTHCARE ECONOMICS CONSULTANT.BARIATRIC NURSE Work Phone: [facility] 08-31-2023 12:07-0500 Body height 162.[address] Work Phone: [facility] 08-31-2023 12:07-0500 Body weight 164.[address] Work Phone: [facility] 08-19-2023 12:14-0500 Body height 162.[address] Work Phone: [facility] 08-19-2023 12:14-0500 Body weight 167.[address] Work Phone: [facility] 08-17-2023 09:52-0500 Body height 162.6 cm Jayshree Huffman HEALTHCARE ECONOMICS CONSULTANT.BARIATRIC NURSE Work Phone: [facility] 08-17-2023 09:52-0500 Body temperature 97.3 [degF] Jayshree Huffman APRN.BARIATRIC NURSE Work Phone: [facility] 08-17-2023 09:52-0500 Body weight 167.8 kg Jayshree Huffman APRN.BARIATRIC NURSE Work Phone: [facility] 08-17-2023 09:52-0500 Diastolic blood pressure 75 mm[Hg] Jayshree Huffman APRN.BARIATRIC NURSE Work Phone: [facility] 08-17-2023 09:52-0500 Heart rate 75 /min Jayshree Huffman APRN.BARIATRIC NURSE Work Phone: [facility] 08-17-2023 09:52-0500 SaO2% (BldA) [Mass fraction] 97 % Jayshree Huffman APRN.BARIATRIC NURSE Work Phone: [facility] 08-17-2023 09:52-0500 Systolic blood pressure 117 mm[Hg] Jayshree Huffman APRN.BARIATRIC NURSE Work Phone: [facility] 03-10-2023 13:33-0400 Body height 162.6 cm Pacc 2 Work Phone: [facility] 03-10-2023 13:33-0400 Body temperature 97 [degF] Pacc 2 Work Phone: [facility] 03-10-2023 13:33-0400 Body weight 181.44 kg Pacc 2 Work Phone: [facility] 03-10-2023 13:33-0400 Diastolic blood pressure 66 mm[Hg] Pacc 2 Work Phone: [facility] 03-10-2023 13:33-0400 Heart rate 73 /min Pacc 2 Work Phone: [facility] 03-10-2023 13:33-0400 Respiratory rate 16 /min Pacc 2 Work Phone: [facility] 03-10-2023 13:33-0400 SaO2% (BldA) [Mass fraction] 97 % Pacc 2 Work Phone: [facility] 03-10-2023 13:33-0400 Systolic blood pressure 138 mm[Hg] Pacc 2 Work Phone: [facility] 03-05-2023 12:54-0400 Body height [address] Work Phone: [facility] 12-15-2022 15:09-0400 Body height [address] Work Phone: [facility] 12-15-2022 15:09-0400 Body weight 174.[address] Work Phone: [facility] 12-13-2022 09:30-0400 Body height 162.56 cm Linda South Other [employer] Other 12-13-2022 09:30-0400 Body mass index (BMI) [Ratio] 66.08 kg/m2 Linda South Other [employer] Other 12-13-2022 09:30-0400 Body temperature 98.2 [degF] Linda South Other [employer] Other 12-13-2022 09:30-0400 Body weight 174.64 kg Linda Zhangley Other [employer] Other 12-13-2022 09:30-0400 Respiratory rate 18 /min Linda Zhangley Other [employer] Other 12-13-2022 09:30-0400 SaO2% (BldA) [Mass fraction] 96 % Linda Zhangley Other [employer] Other 06-04-2022 11:04-0500 Body weight 185.07 kg Amina Nieto MD Work Phone: [facility] 04-16-2022 19:25-0400 Body height 162.56 cm Christa Nayeli Other [employer] Other 04-16-2022 19:25-0400 Body mass index (BMI) [Ratio] 60.07 kg/m2 Christa Aguilarmond Other [employer] Other 04-16-2022 19:25-0400 Body temperature 98.6 [degF] Christa Aguilarmond Other [employer] Other 04-16-2022 19:25-0400 Body weight 158.76 kg Christa Nayeli Other [employer] Other 04-16-2022 19:25-0400 Respiratory rate 18 /min Christa Aguilarmond Other [employer] Other 04-16-2022 19:25-0400 SaO2% (BldA) [Mass fraction] 97 % Christa Nayeli Other [employer] Other 01-17-2022 09:12-0400 Body height [address] Work Phone: [facility] 01-17-2022 09:12-0400 Body weight 179.[address] Work Phone: [facility] 12-18-2021 12:45-0400 Diastolic blood pressure 103 mm[Hg] Joe Granda MD Work Phone: [facility] 12-18-2021 12:45-0400 SaO2% (BldA) [Mass fraction] 100 % Joe Granda MD Work Phone: [facility] 12-18-2021 12:45-0400 Systolic blood pressure 123 mm[Hg] Joe Granda MD Work Phone: [facility] 12-18-2021 12:34-0400 Body temperature 96.91 [degF] Joe Granda MD Work Phone: [facility] 12-18-2021 12:34-0400 Heart rate 106 /min Joe Granda MD Work Phone: [facility] 12-18-2021 12:34-0400 Respiratory rate 20 /min Joe Granda MD Work Phone: [facility] 11-13-2021 11:30-0400 Body height 162.56 cm Christa Tyler Other [employer] Other 11-13-2021 11:30-0400 Body mass index (BMI) [Ratio] 68.65 kg/m2 Christa Tyler Other [employer] Other 11-13-2021 11:30-0400 Body temperature 98.3 [degF] Christa Tyler Other [employer] Other 11-13-2021 11:30-0400 Body weight 181.44 kg Christa Tyler Other [employer] Other 11-13-2021 11:30-0400 Diastolic blood pressure 77 mm[Hg] Christa Tyler Other [employer] Other 11-13-2021 11:30-0400 Respiratory rate 18 /min Christa Tyler Other [employer] Other 11-13-2021 11:30-0400 SaO2% (BldA) [Mass fraction] 100 % Christa Tyler Other [employer] Other 11-13-2021 11:30-0400 Systolic blood pressure 125 mm[Hg] Christa Nayeli Other [employer] Other 11-04-2021 12:44-0400 Body height [address] Work Phone: [facility] 11-04-2021 12:44-0400 Body weight 184.[address] Work Phone: [facility] 11-04-2021 11:13-0400 Body height 160 cm Joe Granda MD Work Phone: [facility] 11-04-2021 11:13-0400 Body weight 184.61 kg Joe Granda MD Work Phone: [facility] 11-04-2021 11:13-0400 Diastolic blood pressure 74 mm[Hg] Joe Granda MD Work Phone: [facility] 11-04-2021 11:13-0400 Heart rate 86 /min Joe Granda MD Work Phone: [facility] 11-04-2021 11:13-0400 Systolic blood pressure 133 mm[Hg] Joe Granda MD Work Phone: [facility] 10-11-2021 14:45-0400 Body height 162.56 cm Bambi Gonzalez Other [employer] Other 10-11-2021 14:45-0400 Body mass index (BMI) [Ratio] 64.36 kg/m2 Bambi Gonzalez Other [employer] Other 10-11-2021 14:45-0400 Body temperature 97.3 [degF] Bambi Gonzalez Other [employer] Other 10-11-2021 14:45-0400 Body weight 170.1 kg Bambi Gonzalez Other [employer] Other 10-11-2021 14:45-0400 Respiratory rate 26 /min Bambi Gonzalez Other [employer] Other 10-11-2021 14:45-0400 SaO2% (BldA) [Mass fraction] 94 % Bambi Gonzalez Other [employer] Other 10-03-2021 13:25-0400 Body height 162.56 cm Tania Blakely Other [employer] Other 10-03-2021 13:25-0400 Body mass index (BMI) [Ratio] 68.82 kg/m2 Tania Reddy Other [employer] Other 10-03-2021 13:25-0400 Body temperature 97.5 [degF] Tania Blakely Other [employer] Other 10-03-2021 13:25-0400 Body weight 181.89 kg Tania Blakely Other [employer] Other 10-03-2021 13:25-0400 Diastolic blood pressure 57 mm[Hg] Tania Blakely Other [employer] Other 10-03-2021 13:25-0400 Respiratory rate 18 /min Tania Blakely Other [employer] Other 10-03-2021 13:25-0400 SaO2% (BldA) [Mass fraction] 99 % Tania Blakely Other [employer] Other 10-03-2021 13:25-0400 Systolic blood pressure 118 mm[Hg] Tania Blakely Other [employer] Other 09-30-2021 09:03-0400 Body height 162.56 cm Prince Horvath Work Phone: [id number] [facility] Work Phone: 09-30-2021 09:03-0400 Body mass index (BMI) [Ratio] 60.08 kg/m2 Prince Horvath Work Phone: [id number] [facility] Work Phone: 09-30-2021 09:03-0400 Body surface area Derived from formula 2.48 m2 Prince Horvath Work Phone: [id number] [facility] Work Phone: 09-30-2021 09:03-0400 Body weight 158.76 kg Prince Horvath Work Phone: [id number] [facility] Work Phone: 09-30-2021 09:03-0400 2 1 Prince Horvath Work Phone: [id number] 206[facility] Work Phone: Comment on above: GRAV PARA 09-30-2021 09:03-0400 0 1 Prince Horvath Work Phone: Ashley [facility] Work Phone: Comment on above: [employer] 09-23-2021 11:00-0400 Body height 160 cm Jayshree Huffman HEALTHCARE ECONOMICS CONSULTANT.BARIATRIC NURSE Work Phone: [facility] 09-23-2021 11:00-0400 Body weight 165.56 kg Jayshree Huffman HEALTHCARE ECONOMICS CONSULTANT.BARIATRIC NURSE Work Phone: [facility] 05-17-2021 11:18-0500 Body height 160 cm Humza Walter MD Work Phone: [facility] 05-17-2021 11:18-0500 Body mass index (BMI) [Ratio] 68.09 kg/m2 Humza Walter MD Work Phone: [facility] 05-17-2021 11:18-0500 Body temperature 96.3 [degF] Humza Walter MD Work Phone: [facility] 05-17-2021 11:18-0500 Body weight 174.36 kg Humza Walter MD Work Phone: [facility] 05-17-2021 11:18-0500 Diastolic blood pressure 77 mm[Hg] Humza Walter MD Work Phone: [facility] 05-17-2021 11:18-0500 Heart rate 75 /min Humza Walter MD Work Phone: [facility] 05-17-2021 11:18-0500 SaO2% (BldA) [Mass fraction] 95 % Humza Walter MD Work Phone: [facility] 05-17-2021 11:18-0500 Systolic blood pressure 133 mm[Hg] Humza Walter MD Work Phone: [facility] 04-06-2020 09:25-0400 BP Diastolic 77 mm[Hg] Kylah Vargas [place] 04-06-2020 09:25-0400 BP Systolic 129 mm[Hg] [facility] 04-06-2020 09:25-0400 Pulse (Heart Rate) 85 /min [facility] 04-06-2020 09:25-0400 Pulse Oximetry 100 % [facility] [place] 04-06-2020 09:25-0400 Respiratory Rate 17 /min [facility] 04-06-2020 08:54-0400 Body Temperature 97.81 [degF] [facility] 04-06-2020 08:06-0400 BMI (Body Mass Index) 64.68 kg/m2 Kylah [facility], [place] 04-06-2020 08:06-0400 Body weight 165.62 kg Kylah [facility] [place] [place], [facility] 04-06-2020 08:06-0400 Height 160 cm [facility] Encounters Encounter Date Encounter Type Care Provider Facility Start: 03-03-2025 ambulatory JOE GRANDA [facility] y:[facility] Start: 03-01-2025 End: 03-01-2025 ambulatory NON STAFF [facility] Work Phone: Start: 03-01-2025 End: 03-01-2025 Patient encounter procedure Araceli Keith HEALTHCARE ECONOMICS CONSULTANT -[facility] Work Phone: Start: 02-20-2025 End: 02-20-2025 ambulatory ELIZABET SIMENTAL Facility:[facility] Start: 02-15-2025 End: 02-15-2025 ambulatory Zohra Roberts Facility:[facility] Start: 02-13-2025 End: 02-13-2025 [facility] Dinah Perez PhD Work Phone: General Surgery BMI PSYL Comment on above: Eating disorder, uns pecified type (Primary Dx); Psychological factors affecting medical condition; Class 3 obesity (HCC) Start: 02-13-2025 Non-patient / Non-visit Gemini argueta [facility] Work Phone: Start: 02-08-2025 End: 02-08-2025 Telephone encounter Elieser Balderas KRISH Work Phone: Pre Anesthesia Comment on above: No Show Start: 02-06-2025 End: 02-06-2025 Admission to same day surgery center Mayela Barnhart RD General Surgery BMI Comment on above: S/P biliopancreatic diversion with duodenal switch (Primary Dx); Dietary counseling and surveillance Start: 02-06-2025 End: 02-06-2025 Telemedicine consultation with patient Mayela Barnhart RD General Surgery BMI Start: 02-06-2025 End: 02-06-2025 ambulatory MAYELA Donya OBEY Facility:[facility] Start: 01-30-2025 End: 01-30-2025 [facility] DINAH PEREZ Facility:[facility] Start: 01-30-2025 End: 01-30-2025 Admission to same day surgery center Dinah Perez PhD Work Phone: General Surgery BMI PSYL Comment on above: NO SHOW (Primary Dx) Start: 01-30-2025 End: 01-30-2025 Telemedicine consultation with patient Dinah Perez PhD Work Phone: General Surgery BMI PSYL Start: 01-24-2025 End: 01-25-2025 Sandhya Nieto MD Work Phone: General Surgery Comment on above: Med Change Request Start: 01-23-2025 End: 01-23-2025 Admission to same day surgery center Mayela Barnhart RD General Surgery BMI Comment on above: S/P biliopancreatic diversion with duodenal switch (Primary Dx); Dietary counseling and surveillance; Type 2 diabetes mellitus without complication, without long-term current use of insulin (HCC) Start: 01-23-2025 End: 01-23-2025 Telemedicine consultation with patient Mayela Barnhart RD General Surgery BMI Start: 01-23-2025 End: 01-23-2025 ambulatory MAYELA BARNHART Facility:[facility] Start: 01-16-2025 End: 01-16-2025 [facility] Dinah Perez PhD Work Phone: General Surgery BMI PSYL Comment on above: Eating disorder, uns pecified type (Primary Dx); Psychological factors affecting medical condition; S/P bariatric surgery Start: 01-10-2025 End: 01-10-2025 Admission to same day surgery center Amina Nieto MD Work Phone: General Surgery Comment on above: S/P biliopancreatic diversion with duodenal switch (Primary Dx); BMI 70 and over, adult (HCC); TONEY (obstructive sleep apnea); Type 2 diabetes mellitus without complication, without long-term current use of insulin (HCC) Start: 01-10-2025 End: 01-10-2025 Telemedicine consultation with patient Amina Nieto MD Work Phone: General Surgery Start: 01-10-2025 End: 01-10-2025 ambulatory AMINA NIETO Facility:[facility] Start: 01-09-2025 End: 01-09-2025 ambulatory DINAH PEREZ Facility:[facility] Start: 01-09-2025 End: 01-09-2025 Admission to same day surgery center Dinah Perez PhD Work Phone: General Surgery BMI PSYL Comment on above: APPOINTMENT CANCELLE D (Primary Dx) Start: 01-09-2025 End: 01-09-2025 Telemedicine consultation with patient Dinah Perez PhD Work Phone: General Surgery BMI PSYL Start: 01-02-2025 End: 01-02-2025 ambulatory ELIZABET SIMENTAL Facility:[facility] Start: 01-02-2025 End: 01-02-2025 Admission to same day surgery center Karon Monsivais RD Work Phone: General Surgery Comment on above: Impaired intestinal absorption (HCC) (Primary Dx); S/P biliopancreatic diversion with duodenal switch; BMI 70 and over, adult (HCC); Dietary counseling and surveillance Start: 01-02-2025 End: 01-02-2025 Telemedicine consultation with patient Karon Monsivais RD Work Phone: General Surgery Start: 01-02-2025 End: 01-02-2025 ambulatory KARON MONSIVAIS Facility:[facility] Start: 12-28-2024 End: 12-28-2024 [facility] Dinah Perez PhD Work Phone: General Surgery BMI PSYL Comment on above: Eating disorder, uns pecified type (Primary Dx); Psychological factors affecting medical condition; Class 3 obesity (HCC) Start: 12-27-2024 End: 12-27-2024 ambulatory AMINA NIETO Facility:[facility] Start: 11-29-2024 End: 11-29-2024 Admission to same day surgery center Amnia Nieto MD Work Phone: General Surgery Comment on above: S/P biliopancreatic diversion with duodenal switch (Primary Dx); BMI 70 and over, adult (HCC); TONEY (obstructive sleep apnea) Start: 11-29-2024 End: 11-29-2024 Telemedicine consultation with patient Amina Nieto MD Work Phone: General Surgery Start: 11-29-2024 End: 11-29-2024 ambulatory AMINA NIETO Facility:[facility] Start: 10-05-2024 End: 10-05-2024 ambulatory Jesusita Lopez [facility] Work Phone: Start: 10-05-2024 End: 10-05-2024 Departed Referred Jesusita Lopez PA-C Work Phone: [facility] Start: 10-05-2024 End: 10-05-2024 Patient encounter procedure Amina Nieto MD Work Phone: [facility] Comment on above: S/P biliopancreatic diversion with duodenal switch (Primary Dx); BMI 70 and over, adult (HCC); TONEY (obstructive sleep apnea) Start: 10-05-2024 End: 10-05-2024 Telemedicine consultation with patient Amina Nieto MD Work Phone: [facility] Start: 10-05-2024 End: 10-05-2024 ambulatory AMINA NIETO Facility:[facility] Start: 09-14-2024 End: 09-14-2024 Office outpatient visit 25 minutes Mariia MARTINEZ Work Phone: [facility] Comment on above: Migraine without aur a and without status migrainosus, not intractable (CMS/HCC) (Primary Dx) Start: 09-14-2024 End: 09-14-2024 ambulatory MARIIA QUINTEROS Not Available Start: 09-05-2024 End: 09-05-2024 ambulatory [facility] Work Phone: Start: 09-05-2024 End: 09-05-2024 Patient encounter procedure [facility] Work Phone: Start: 09-02-2024 End: 09-02-2024 ambulatory PEYMAN Vee [facility] Start: 08-25-2024 End: 08-25-2024 Telephone encounter Namita MARTINEZ Work Phone: [facility] Gynecology Oncology, A Department of [facility] Comment on above: Appointment Start: 08-22-2024 End: 08-22-2024 Telephone encounter Russell MARTINEZ Work Phone: Pre Anesthesia Comment on above: No Show Start: 08-17-2024 End: 08-17-2024 Telephone encounter Yakelin Cherry RN [facility] Gynecology Oncology, A Department of [facility] Comment on above: Right ovarian cyst ( Primary Dx) Start: 08-15-2024 End: 08-15-2024 Office outpatient visit 15 minutes Peyman Holt MD Work Phone: [facility]- Medical Oncology Comment on above: Pelvic mass in femal e (Primary Dx); Morbid obesity ([facility]-HCC) Start: 08-15-2024 End: 08-19-2024 ambulatory PEYMAN HOLT [facility] Start: 08-12-2024 End: 08-12-2024 Evaluation and management of inpatient [facility] Start: 08-12-2024 End: 08-12-2024 Evaluation and management of inpatient PEYMAN Vee [place] [facility] Start: 08-11-2024 End: 08-11-2024 Telephone encounter Peyman Holt MD Work Phone: [facility] Gynecology Oncology, A Department of [facility] Comment on above: Procedure Start: 08-09-2024 End: 08-09-2024 ambulatory PEYMAN HOLT [facility] Start: 08-09-2024 End: 08-09-2024 Admission to [facility] Phone Call Provider 3 [facility] Pre-Admission [facility] Start: 08-09-2024 End: 08-09-2024 Evaluation and management of inpatient [facility] Start: 08-08-2024 End: 08-08-2024 Patient encounter status Peyman Holt MD Work Phone: [facility] Start: 08-08-2024 End: 08-09-2024 Orders Only Peyman Holt MD Work Phone: [facility] Gynecology Oncology, A Department of [facility] Comment on above: Pelvic mass in femal e (Primary Dx); Right ovarian cyst; Preop testing Impaired intestinal absorption (Primary Dx); S/P biliopancreatic diversion with duodenal switch; Class 3 severe obesity with body mass index (BMI) of 60.0 to 69.9 in adult, unspecified obesity type, unspecified whether serious comorbidity present (HCC); Dietary counseling and surveillance S/P biliopancreatic diversion with duodenal switch (Primary Dx); BMI 60.0-69.9, adult (HCC); Prediabetes; S/P bariatric surgery [facility] Start: 08-03-2024 End: 08-03-2024 Office outpatient new 60 minutes Peyman Holt MD Work Phone: [facility] Gynecology Oncology, A Department of [facility] Comment on above: Pelvic mass in femal e (Primary Dx); Morbid obesity (CMS-HCC) Start: 08-03-2024 End: 08-03-2024 ambulatory PEYMAN HOLT [facility] Start: 07-21-2024 End: 07-21-2024 Office outpatient visit 15 minutes Jamie Cherri DO Work Phone: [facility] Comment on above: Right ovarian cyst; Follow-up exam Start: 07-21-2024 End: 07-21-2024 ambulatory JAMIE HARLEY Not Available Start: 07-19-2024 End: 01-06-2025 Telephone encounter Joe Granda MD Work Phone: General Surgery Comment on above: Orders; Care Coordin ator - Other Start: 07-18-2024 End: 07-18-2024 Admission to same day surgery center Joe Granda MD Work Phone: General Surgery Comment on above: Epigastric pain (Nataliia july Dx); S/P biliopancreatic diversion with duodenal switch Start: 07-18-2024 End: 07-18-2024 Telemedicine consultation with patient Joe Granda MD Work Phone: General Surgery Start: 07-18-2024 End: 07-18-2024 ambulatory Joe Granda MD Work Phone: General Surgery Start: 07-07-2024 End: 07-07-2024 Emergency department patient visit [facility] Start: 06-15-2024 End: 06-15-2024 Patient encounter procedure [facility] Work Phone: Start: 06-01-2024 End: 06-01-2024 Bamboo flowsheet Bushra Nevarez [employer]SEM[employer]ER [employer] Work Phone: [facility] Start: 06-01-2024 End: 06-01-2024 Bamboo flowsheet Bushra Nevarez [employer] Work Phone: [facility] Start: 06-01-2024 End: 06-01-2024 Office outpatient visit 25 minutes Bushra Nevarez [employer] Work Phone: [facility] Comment on above: Arthritis of right k nee (Primary Dx); Right knee pain, unspecified chronicity Start: 06-01-2024 End: 06-01-2024 ambulatory BUSHRA NEVAREZ Not Available Start: 05-24-2024 End: 05-24-2024 ambulatory Rohini Inna [place] Facility:[facility] Start: 05-20-2024 End: 05-20-2024 ambulatory BUSHRA NEVAREZ Not Available Start: 05-12-2024 End: 05-12-2024 ambulatory Zohra Schuler Armando Facility:[facility] Start: 05-12-2024 End: 05-12-2024 ambulatory Rohini Schmidt [place] HEALTHCARE ECONOMICS CONSULTANT-BARIATRIC NURSE Facility:[facility] Start: 05-05-2024 End: 05-05-2024 ambulatory KARON MONSIVAIS Facility:[facility] Start: 05-05-2024 End: 05-05-2024 Patient encounter procedure Karon Monsivais RD Work Phone: [facility] Comment on above: Impaired intestinal absorption (Primary Dx); S/P biliopancreatic diversion with duodenal switch; Class 3 severe obesity with body mass index (BMI) of 60.0 to 69.9 in adult, unspecified obesity type, unspecified whether serious comorbidity present (HCC); Dietary counseling and surveillance Start: 05-05-2024 End: 05-05-2024 Telemedicine consultation with patient Karon Monsivais RD Work Phone: [facility] Start: 04-29-2024 End: 04-29-2024 ambulatory ELIZABET JUANJORoro Facility:[facility] Start: 04-28-2024 End: 04-28-2024 Telephone encounter Prince Colindres [employer] [facility] Comment on above: Cx PT (She called & lm noting she just received a phone call from school and needed to 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 She said she will be here next week for PT.) Start: 04-27-2024 End: 04-27-2024 Bamboo flowsheet Bushra Nevarez [employer] Work Phone: [facility] Start: 04-27-2024 End: 04-27-2024 Bamboo flowsheet Bushra Nevarez [employer]SEM[employer]ER [employer] Work Phone: [facility] Start: 04-27-2024 End: 04-27-2024 Office outpatient visit 25 minutes Bushra Nevarez [employer] Work Phone: [facility] Comment on above: Arthritis of right k nee (Primary Dx); Right knee pain, unspecified chronicity; Internal derangement of right knee; Contusion of right knee, initial encounter; Left knee pain, unspecified chronicity; Arthritis of left knee Start: 04-27-2024 End: 04-27-2024 ambulatory BUSHRA NEVAREZ Not Available Start: 04-21-2024 End: 04-21-2024 Bamboo flowsheet Prince Colindres [employer] M[employer] [facility] Start: 04-21-2024 End: 04-21-2024 Bamboo flowsheet Prince Colindres [employer]EL M[employer] [facility] Start: 04-21-2024 End: 04-21-2024 ambulatory Prince Colindres [employer] [facility] Comment on above: Low [...] bariatric surgery Start: 04-19-2024 End: 04-19-2024 ambulatory AMINA NIETO Facility:[facility] Start: 04-19-2024 End: 04-19-2024 Telemedicine consultation with patient Amina Nieto MD Work Phone: General Surgery Start: 04-13-2024 End: 04-13-2024 Bamboo flowsheet Bushra Nevarez [employer] Work Phone: [facility] Start: 04-13-2024 End: 04-13-2024 Bamboo flowsheet Bushra Nevarez [employer] Work Phone: [facility] Start: 04-13-2024 End: 04-13-2024 Office outpatient visit 25 minutes Bushra Nevarez [employer] Work Phone: [facility] Comment on above: Right knee pain, uns pecified chronicity (Primary Dx); Arthritis of right knee Start: 04-13-2024 End: 04-13-2024 ambulatory BUSHRA NEVAREZ Not Available Start: 04-12-2024 End: 04-12-2024 Telephone encounter Prince Colindres [employer] [facility] Comment on above: re: Next 2 PT's (She called noting her step-father had this morning and she is traveling out of town; she cx her PT today and on 04/14/24. I reminded and she confirmed PT on 04/19/24.) Start: 04-11-2024 End: 04-11-2024 Emergency department patient visit [facility] Start: 04-07-2024 End: 04-07-2024 Bamboo flowsheet Prince Colindres [employer] M[employer] [facility] Start: 04-07-2024 End: 04-07-2024 Bamboo flowsheet Prince Colindres [employer] M[employer]DER [facility] Start: 04-07-2024 End: 04-07-2024 ambulatory Prince Colindres [employer] M[employer] [facility] Comment on above: Low back pain, unspe cified back pain laterality, unspecified chronicity, unspecified whether sciatica present (Primary Dx) Start: 04-06-2024 End: 04-06-2024 Emergency department patient visit [facility] Start: 03-31-2024 End: 03-31-2024 Bamboo flowsheet Prince Colindres STEEL MOL[employer] [facility] Start: 03-31-2024 End: 03-31-2024 Bamboo flowsheet Prince Colindres STEEL MOLDER [facility] Start: 03-31-2024 End: 03-31-2024 ambulatory Prince Colindres STE[employer] M[employer] [facility] Comment on above: Low back pain, unspe cified back pain laterality, unspecified chronicity, unspecified whether sciatica present (Primary Dx) Start: 03-29-2024 End: 03-29-2024 Bamboo flowsheet Prince Colindres STEEL MOLDER [facility] Start: 03-29-2024 End: 03-29-2024 Bamboo flowsheet Prince Colindres STEEL M[employer]DER [facility] Start: 03-29-2024 End: 03-29-2024 ambulatory Prince Colindres STEEL M[employer] [facility] Comment on above: Low back pain, unspe cified back pain laterality, unspecified chronicity, unspecified whether sciatica present (Primary Dx) Start: 03-24-2024 End: 03-24-2024 Bamboo flowsheet Sherry Cuellar PT [facility] Start: 03-24-2024 End: 03-24-2024 Bamboo flowsheet Sherry Cuellar PT [facility] Start: 03-24-2024 End: 03-24-2024 ambulatory Sherry Cuellar PT [facility] [...] 03-17-2024 End: 03-17-2024 Bamboo flowsheet Prince Colindres STEEL MOLDER [facility] Start: 03-17-2024 End: 03-17-2024 Bamboo flowsheet Prince Colindres STEEL M[employer] [facility] Start: 03-17-2024 End: 03-17-2024 ambulatory Prince Colindres [employer] M[employer] [facility] Comment on above: Low [...] 03-07-2024 Office outpatient visit 15 minutes Jamie Harley DO Work Phone: [facility] Comment on above: Pelvic pain; Right ovarian cyst Start: 03-07-2024 End: 03-07-2024 ambulatory JAMIE SANCHEZO Not Available Start: 03-04-2024 End: 03-04-2024 Bamboo flowsheet Sherry Cuellar PT [facility] Start: 03-04-2024 End: 03-04-2024 Bamboo flowsheet Sherry Cuellar PT [facility] Start: 03-04-2024 End: 03-04-2024 Refill Amina Nieto MD Work Phone: General Surgery Comment on above: Refill Request Start: 03-04-2024 End: 03-04-2024 ambulatory Sherry Cuellar PT [facility] Comment on above: Low back pain, unspe cified back pain laterality, unspecified chronicity, unspecified whether sciatica present (Primary Dx) Start: 01-06-2024 End: 01-06-2024 ambulatory BUSHRA B APLING Not Available Start: 12-09-2023 End: 12-09-2023 ambulatory BUSHRA B APLING Not Available Start: 12-07-2023 End: 12-07-2023 Evaluation and management of inpatient JARED D [facility] Start: 12-02-2023 End: 12-02-2023 Evaluation and management of inpatient [facility] Start: 11-17-2023 End: 11-17-2023 ambulatory [facility] Not Available Start: 11-11-2023 End: 11-11-2023 ambulatory BUSHRA B APLING Not Available Start: 11-04-2023 End: 11-04-2023 Evaluation and management of inpatient JARED [facility] Start: 11-04-2023 End: 11-04-2023 Evaluation and management of inpatient OTILIO [facility] Start: 11-03-2023 End: 11-03-2023 Admission to same day surgery center Amina Nieto MD Work Phone: General Surgery Comment on above: BMI 60.0-69.9, adult (HCC) (Primary Dx); S/P bariatric surgery Start: 11-03-2023 End: 11-03-2023 Telemedicine consultation with patient Amina Nieto MD Work Phone: General Surgery Start: 11-02-2023 End: 11-02-2023 Admission to same day surgery center Tania Colbert RD Work Phone: General Surgery Comment [...] S/P bariatric surgery Start: 11-02-2023 End: 11-02-2023 Telemedicine consultation with patient Tania Colbert RD Work Phone: General Surgery Start: 10-20-2023 End: 10-20-2023 ambulatory [facility] Start: 10-20-2023 Encounter for other preprocedural examination [facility] Start: 10-20-2023 End: 10-20-2023 Patient encounter procedure [facility] Pre-Admission Testing 2 [facility] - Pre Admit Comment on above: Preop examination (P rimary Dx); BMI 60.0-69.9, adult ([facility]) Start: 10-20-2023 End: 10-20-2023 Preprocedural examination done [facility] 2 [facility] Start: 10-20-2023 End: 10-22-2023 ambulatory [facility] Start: 10-13-2023 End: 10-13-2023 ambulatory [facility] Not Available Start: 10-07-2023 End: 10-07-2023 ambulatory BUSHRA NEVAREZ Not Available Start: 09-07-2023 End: 09-07-2023 Patient encounter procedure Jayshree Huffman REY.BARIATRIC NURSE Work Phone: General Surgery Comment on above: S/P gastrointestinal surgery, follow-up exam (Primary Dx); S/P biliopancreatic diversion with duodenal switch; Open abdominal incision with drainage, subsequent encounter; Impaired intestinal absorption; Class 3 severe obesity with body mass index (BMI) of 60.0 to 69.9 in adult, unspecified obesity type, unspecified whether serious comorbidity present (HCC) Start: 08-31-2023 End: 08-31-2023 Admission to same day surgery center Tania Colbert RD Work Phone: General Surgery Comment on above: S/P bariatric surger y (Primary Dx); Body mass index (BMI) 60.0-69.9, adult (HCC); Dietary counseling and surveillance Start: 08-31-2023 End: 08-31-2023 Telemedicine consultation with patient Tania Colbert RD Work Phone: [facility] Start: 08-19-2023 End: 08-19-2023 ambulatory Karon [...] Karon Macarioveronica OLIVAS Work Phone: PAWAN MALIK [facility] Start: 08-17-2023 End: 08-17-2023 Patient encounter procedure Jayshree Huffman REY.BARIATRIC NURSE Work Phone: Endocrinology BMI Comment on above: S/P gastrointestinal surgery, follow-up exam (Primary Dx); Status post biliopancreatic diversion with duodenal switch; Post-operative nausea and vomiting Start: 08-13-2023 Telephone encounter Cynthia Maravilla RN General Surgery Comment on above: Post Op Start: 08-03-2023 Telephone encounter Silvia Curry RN General Surgery Start: 05-09-2023 Admission to [facility] center Joe Granda MD Work Phone: Endocrinology BMI Comment on above: About surgery Start: 05-09-2023 ambulatory Joe schuler MD Work Phone: PAWAN Lyles KING [facility] Start: 05-08-2023 ambulatory Joe schuler MD Work Phone: General Surgery Comment on above: Confirming Or Date Start: 05-08-2023 E-mail encounter rajiv m caregiver Joe Granda MD Work Phone: [facility] Start: 04-27-2023 Telephone encounter Joe sargent MD Work Phone: Endocrinology BMI Start: 04-13-2023 End: 04-13-[address] Work Phone: General Surgery Comment on above: Patient left without being seen (Primary Dx) Start: 04-13-2023 End: 04-13-2023 Telemedicine consultation with patient Tania Colbert RD Work Phone: [facility] Start: 03-10-2023 End: 03-10-2023 PAT [facility] Work Phone: Pre Anesthesia Comment on above: Pre-op evaluation (P rimary Dx); Morbid obesity with body mass index of 60.0-69.9 in adult ([facility]); Gastroesophageal reflux disease, unspecified whether esophagitis present; TONEY on CPAP; Bipolar affective disorder, remission status unspecified ([facility]); Thrombocytosis; Migraine without status migrainosus, not intractable, unspecified migraine type Surgery question Start: 03-10-2023 End: 03-10-2023 Preprocedural examination done [facility] Work Phone: [facility] Work Phone: Start: 03-05-2023 End: 03-05-2023 [facility] Isabela Renee RD Work Phone: General Surgery Comment on above: Weight gain followin g gastric bypass surgery (Primary Dx); Abnormal weight gain; Preop testing; Snoring; Sleep-disordered breathing; Fatigue, unspecified type; S/P bariatric surgery; S/P gastric sleeve procedure; Dietary counseling and surveillance; BMI 60.0-69.9, adult (HCC) Start: 03-05-2023 End: 03-05-2023 Patient encounter status Isabela Renee RD Work Phone: [facility] Work Phone: Start: 01-05-2023 Telephone encounter [...] with patient Isabela Renee RD Work Phone: [facility] Start: 12-13-2022 End: 12-13-2022 ambulatory Linda South Other [facility] Other Start: 12-13-2022 Office outpatient vi sit 15 minutes Linda South [facility] Start: 12-03-2022 Admission to [facility] Joe Granda MD Work Phone: General Surgery Comment on above: Insurance Authorizat ion (Not Real Surgery Date) Start: 12-03-2022 ambulatory Joe schuler MD Work Phone: [facility] Start: 11-03-2022 End: 11-04-[address] DOCTOR ALFARO Facility:H1 Start: 08-27-2022 End: 08-28-[address] DOCTOR ALFARO Facility:[facility]1 Start: 08-19-2022 End: 08-19-2022 ambulatory MICHELLE LOPEZ . Facility:[facility] Start: 08-17-2022 Encounter for other preprocedural examination DR DOCTOR ALFARO [facility] Start: 08-12-2022 End: 08-13-[address] DOCTOR ALFARO Facility:[facility]1 Start: 08-12-2022 End: 08-13-2022 Encounter for other preprocedural examination DR DOCTOR ALFARO Facility:[facility]1 Start: 07-22-[address] DOCTOR ALFARO Facility :H1 Start: 06-04-2022 End: 06-04-2022 [facility] Amina Nieto MD Work Phone: [...] Endocrinology BMI Comment on above: Patient Update (Gacria ge in surgery type) Start: 05-01-2022 Telephone encounter Joe sargent MD Work Phone: Endocrinology BMI Comment on above: Patient Question Start: 04-18-2022 ambulatory Joe schuler MD Work Phone: Endocrinology BMI Comment on above: 06/10/2022 (Laparosc opic partial gastrectomy with gastrojejunostomy) Start: 04-18-2022 Telephone encounter Pao noguera RN Work Phone: Endocrinology BMI Comment on above: Schedule Surgery (La paroscopic partial gastrectomy with gastrojejunostomy) Start: 04-16-2022 End: 04-16-2022 Patient encounter procedure [facility] Start: 04-16-2022 End: 04-16-2022 ambulatory Joe Granda MD Work Phone: Endocrinology BMI Comment on above: Morbid obesity with body mass index of 60.0-69.9 in adult (HCC) (Primary Dx); Gastroesophageal reflux disease, unspecified whether esophagitis present Start: 04-16-2022 End: 04-16-2022 Telemedicine consultation with patient Joe Granda MD Work Phone: PAWAN MALIK [facility] Start: 04-16-2022 End: 04-16-2022 ambulatory NON [facility] Work Phone: Start: 04-16-2022 Office outpatient vi sit 15 minutes Christa Tyler [facility] Start: 04-15-2022 ambulatory Pao Hodgson RN Work Phone: Endocrinology BMI Comment on above: Upper GI Series Start: 04-15-2022 E-mail encounter fro m caregiver Pao Hodgson RN Work Phone: PAWAN MALIK [facility] Start: 04-11-2022 End: 04-12-[address] ESTELLA WHITEHEAD Facility:H1 Start: 04-01-2022 End: 04-01-[address] KAT MUNGUIA . Facility:H1 Start: 03-27-2022 End: 03-27-2022 ambulatory Rob Garcia Other [facility] Other Start: 03-27-2022 Telephone encounter oRb [facility] Start: 03-10-2022 End: 03-10-2022 ambulatory Joe Granda MD Work Phone: Endocrinology BMI Comment on above: History of sleeve ga strectomy (Primary Dx) Start: 03-10-2022 End: 03-10-2022 Telemedicine consultation with patient Joe Granda MD Work Phone: PAWAN MALIK [facility] Start: 02-17-2022 End: 02-17-2022 ambulatory Joe Granda MD Work Phone: Endocrinology BMI Comment on above: NO SHOW (Primary Dx) Start: 02-17-2022 End: 02-17-2022 Telemedicine consultation with patient Joe Granda MD Work Phone: PAWAN MALIK [facility] Start: 02-12-2022 End: 02-12-2022 Subsequent hospital visit by physician Shireen Pagan [facility] Work Phone: [facility] Radiology CT Scan Comment on [...] Joe Granda MD Work Phone: PAWAN MALIK [facility] Start: 01-17-2022 End: 01-17-2022 ambulatory Karon Monsivais [...] with patient Akosua Peraza RD Work Phone: [facility] Start: 11-13-2021 End: 11-13-2021 ambulatory Christa Tyler Other [facility] Other Start: 11-13-2021 Office outpatient vi sit 15 minutes Christa Tyler [facility] Start: 11-04-2021 End: 11-04-[address] Work Phone: Endocrinology BMI Comment on above: Reassessment; Patien t Education Start: 11-04-2021 End: 11-04-2021 Patient encounter procedure Joe Granda MD Work Phone: Endocrinology BMI Comment on above: History of sleeve ga strectomy (Primary Dx); Gastric fistula Start: 10-28-2021 End: 10-28-2021 ambulatory Estella Nguyen Other [facility] Other Start: 10-28-2021 Telephone encounter Estella Nguyen [facility] Start: 10-23-2021 End: 10-23-2021 ambulatory Celsa Argueta Other [facility] Other Start: 10-23-2021 Telephone encounter Celsa Argueta [facility] Start: 10-11-2021 End: 10-11-2021 ambulatory Bambi Gonzalez Other [facility] Other Start: 10-11-2021 Patient encounter procedure Bambi Gonzalez [facility] Start: 10-03-2021 End: 10-03-2021 ambulatory Tania Blakely Other [facility] Other Start: 10-03-2021 Office outpatient vi sit 25 minutes Tania Blakely [facility] Start: 09-30-2021 Office consultation new/estab patient 40 min Prince Horvath Work Phone: [id number] Work Phone: Start: 09-25-2021 Orders Only Joe schuler MD Work Phone: General Surgery Comment on above: Dysphagia, unspecifi ed type (Primary Dx); Gastroesophageal reflux disease, unspecified whether esophagitis present; History of sleeve gastrectomy Start: 09-24-2021 E-mail encounter rajiv m caregiver Jayshree Huffman APRN.BARIATRIC NURSE Work Phone: [facility] Start: 09-24-2021 Follow-up encounter Jayshree tilley KRISH Work Phone: General Surgery Comment on above: Appointment follow u p Start: 09-23-2021 End: 09-23-2021 ambulatory Jayshree Huffman KRISH Work Phone: General Surgery Comment on above: Gastroesophageal ref lux disease, unspecified whether esophagitis present (Primary Dx); Class 3 severe obesity with serious comorbidity and body mass index (BMI) of 60.0 to 69.9 in adult, unspecified obesity type (HCC); TONEY on CPAP; S/P laparoscopic sleeve gastrectomy; Postoperative malabsorption Start: 09-23-2021 End: 09-23-2021 Telemedicine consultation with patient Jayshree Huffman APRKENDRA Work Phone: [facility] Start: 05-17-2021 End: 05-17-2021 Office outpatient new 45 minutes Humza Walter MD Work Phone: [facility] Comment on above: S/P laparoscopic sle nikki gastrectomy (Primary Dx); TONEY on CPAP; Morbid obesity with body mass index of 50 or higher; Gastroesophageal reflux disease, unspecified whether esophagitis present; Screening for viral disease; Other intestinal malabsorption Start: 04-06-2020 End: 04-06-2020 Patient encounter procedure KYLAH VARGAS [facility] Start: 04-06-2020 End: 04-06-2020 Subsequent hospital visit by physician Kylah Vargas Work Phone: [facility] [place] Comment on above: S/P laparoscopic sle nikki gastrectomy (Primary Dx) Start: 04-02-2020 End: 04-07-2020 Patient encounter procedure CHANA THOMAS [facility] Start: 04-02-2020 [facility] Start: 04-02-2020 End: 04-06-2020 Subsequent hospital visit by physician Franklin Pérezid19 Pat Screening Schedule [facility] PRE ADMIT Comment on above: Preop testing Start: 01-06-2017 End: 01-07-2017 Ambulatory ROSAURA CARRENOValerie [facility] Procedures Date Procedure Procedure Detail Performing Clinician Start: 06-01-2024 Arthrocentesis aspir&/inj major jt/bursa w/o us Bushra Nevarez [employer] Work Phone: Start: 04-27-2024 Arthrocentesis aspir&/inj major jt/bursa w/o us Bushra Mart Apling [employer] Work Phone: Start: 04-13-2024 Arthrocentesis aspir&/inj major jt/bursa w/o us Bushra Mart Apling [employer] Work Phone: Start: 03-23-2024 [facility] Jamie Cherri DO Work Phone: Start: 08-31-2023 Adult depression screening assessment Karon Monsivais RD Work Phone: Start: 08-04-2023 History of gastrointestinal tract bypass S/P biliopancreatic diversion with duodenal switch Tania Colbert RD Work Phone: Start: 04-16-2022 X-ray of right foot Start: 02-12-2022 Ct abdomen & pelvis w/contrast material Joe Granda MD Work Phone: Start: 12-18-2021 Esophagogastroduodenoscopy transoral diagnostic Jayshree Huffman APRN.BARIATRIC NURSE Work Phone: Start: 08-19-2021 Adult depression screening assessment Jayshree Huffman APRN.BARIATRIC NURSE Work Phone: Start: 04-06-2020 Level iv surg [...] Start: 01-06-2017 DRUG SCREEN, PAIN ROSAURA ASHISH Start: 04-17-2016 Microscopic observation [Identifier] in Cervix by Cyto stain [facility] 2 Cholecystectomy Prinec giles Work Phone: Decompression of median nerve Prince Horvath Work Phone: Comment on above: Bilateral; History of gastroint estinal tract bypass Status post biliopancreatic diversion with duodenal switch Jayshree Nathanael HEALTHCARE ECONOMICS CONSULTANT.BARIATRIC NURSE Work Phone: History of gastroint estinal tract bypass S/P biliopancreatic diversion with duodenal switch Karon Monsivais RD Work Phone: History of gastroint estinal tract bypass S/P biliopancreatic diversion with duodenal switch Jayshree Nathanael HEALTHCARE ECONOMICS CONSULTANT.BARIATRIC NURSE Work Phone: History of gastroint estinal tract bypass S/P biliopancreatic diversion with duodenal switch Jayshree Nathanael HEALTHCARE ECONOMICS CONSULTANT.BARIATRIC NURSE Work Phone: History of gastroint estinal tract bypass S/P biliopancreatic diversion with duodenal switch Amina Nieto MD Work Phone: History of gastroint estinal tract bypass S/P biliopancreatic diversion with duodenal switch Karon Monsivais RD Work Phone: History of gastroint estinal tract bypass S/P biliopancreatic diversion with duodenal switch Joe Granda MD Work Phone: History of gastroint estinal [...] bypass S/P biliopancreatic diversion with duodenal switch Mayela Barnhart RD History of gastroint estinal tract bypass S/P biliopancreatic diversion with duodenal switch Amina Nieto MD Work Phone: History of gastroint estinal tract bypass S/P biliopancreatic diversion with duodenal switch Mayela Barnhart RD Splenectomy Prince Cabrera y Work Phone: Plan of Treatment Date Care Activity Detail Author Start: 08-11-2029 DTaP,Tdap and Td Vaccines (2 - Td or Tdap) DTaP,Tdap and Td Vaccines (2 - Td or Tdap) [facility] Start: 08-11-2029 DTaP/Tdap/Td vaccine (2 - Td) DTaP/Tdap/Td vaccine (2 - Td) [place] Start: 08-11-2029 Urine microalbumin profile DTaP,Tdap,Td Vaccine (2 - Td or Tdap) [facility] Start: 08-12-2025 Adult BMI Screening Adult BMI Screening [facility] Start: 08-12-2025 Tobacco Screening Tobacco Screening [facility] Start: 08-09-2025 Tobacco Screening Tobacco Screening [facility] Start: 08-03-2025 Adult BMI Screening Adult BMI Screening [facility] Start: 08-03-2025 Tobacco Screening Tobacco Screening [facility] Start: 06-29-2025 Hemoglobin A[facility]c [facility] Start: 03-20-2025 End: 03-20-2025 Admission to same day surgery center 03/20/2025 3:00 PM EDT [facility] General Surgery BMI [address] [place] [address] [place] [address] Protein and Fluids General Surgery BMI Comment on above: Protein and Fluids Start: 03-13-2025 End: 03-13-2025 Admission to same day surgery center 03/13/2025 3:00 PM EDT [facility] General Surgery BMI PSYL [address] [place] [address] Dinah Perez, PhD [address] [place] [address] Emotional eating General Surgery BMI PSYL Comment on above: Emotional eating Start: 03-06-2025 End: 03-06-2025 Admission to same day surgery center 03/06/2025 3:00 PM EDT [facility] Surgery BMI PSYL [address] [place] [address] Dinah Perez, PhD [address] [place] [address] Exploring your relationship with food General Surgery BMI PSYL Comment on above: Exploring your relationship with food Start: 03-03-2025 End: 03-03-2025 Patient encounter procedure 03/03/2025 9:15 AM EDT Appointment [facility] - ENDO [address] [place] [address] [place] [address] [place] [address] Epigastric pain [R10.13] [facility] - ENDO Comment on above: Epigastric pain [R10.13] Start: 03-01-2025 Patient referral [facility] Work Phone: Start: 02-27-2025 Influenza vaccination Influenza Vaccine (#1) [facility] Start: 02-13-2025 End: 02-13-2025 Admission to same day surgery center 02/13/2025 3:00 PM EDT [facility] General Surgery BMI PSYL [address] [place] [address] Dinah Perez, PhD [address] [place] [address] Relapse Prevention General Surgery BMI PSYL Comment on above: Relapse Prevention Start: 02-08-2025 End: 02-08-2025 Anesthesia consultation 02/08/2025 2:30 PM EDT PAT Pre Anesthesia [address] [place] [address] DOS 03/03 Pre Anesthesia Comment on above: DOS 03/03 Start: 02-06-2025 End: 02-06-2025 Admission to same day surgery center 02/06/2025 3:00 PM EDT [facility] General Surgery BMI [address] [place] [address] Mayela Barnhart, BRENDON [address] [place] [address] Anatomy and Vitamins General Surgery BMI Comment on above: Anatomy and Vitamins Start: 01-30-2025 End: 01-30-2025 Admission to same day surgery center 01/30/2025 3:00 PM EDT [facility] General Surgery BMI PSYL [address] [place] [address] Dinah Perez, PhD [address] [place] [address] Cognitive Strategies & Body Image General Surgery BMI PSYL Comment on above: Cognitive Strategies & Body Image Start: 01-27-2025 End: 01-27-2025 Patient encounter procedure 01/27/2025 8:00 AM EDT Appointment [facility] Endoscopy - ENDO [address] [place] [address] Epigastric pain [R10.13] [facility] - ENDO Comment on above: Epigastric pain [R10.13] Start: 01-23-2025 End: 01-23-2025 Admission to same day surgery center 01/23/2025 3:00 PM EDT [facility] General Surgery BMI [address] [place] [address] Mayela Barnhart, BRENDON [address] [place] [address] Healthful Meal Planning Post Surgery General Surgery BMI Comment on above: Healthful Meal Planning Post Surgery Start: 01-16-2025 End: 01-16-2025 Admission to same day surgery center 01/16/2025 3:00 PM EDT [facility] BMI PSYL [address] [place] [address] Dinah Perez, PhD [address] [place] [address] Stimulus Control & Mindful eating General Surgery BMI PSYL Comment on above: Stimulus Control & Mindful eating Start: 01-10-2025 End: 01-10-2025 Follow-up encounter 01/10/2025 11:00 AM EDT [facility] [address] [place] [address] Amina Nieto MD [address] [place] [address] follow-up weight management General Surgery Comment on above: follow-up weight management Start: 01-09-2025 End: 01-09-2025 Admission to same day surgery center General Surgery BMI PSYL Comment on above: Social Eating & Social Support Start: 01-03-2025 Meningococcal (ACWY) vaccine (3 - Risk start after 7 months 2-dose series) Meningococcal (ACWY) vaccine (3 - Risk start after 7 months 2-dose series) [place] Start: 01-02-2025 End: 01-02-2025 Admission to same day surgery center 01/02/2025 8:00 AM EDT [facility] [address] [place] [address] [place] [address] pets salesperson appt General Surgery Comment on above: pets salesperson appt Start: 11-29-2024 End: 02-28-2025 25-hydroxyvitamin D3 [Mass/volume] in Serum or Plasma VITAMIN D 25 HYDROXY Lab Routine S/P biliopancreatic diversion with duodenal switch BMI 70 and over, adult (HCC) TONEY (obstructive sleep apnea) Expected: 11/29/2024, Expires: 02/28/2025 [facility] Comment on above: Expected: 11/29/2024, Expires: Start: 11-29-2024 End: 02-28-2025 Cobalamin (Vitamin B12) [Mass/volume] in Serum or Plasma VITAMIN B12 Lab Routine S/P biliopancreatic diversion with duodenal switch BMI 70 and over, adult (HCC) TONEY (obstructive sleep apnea) Expected: 11/29/2024, Expires: 02/28/2025 [facility] Comment on above: Expected: 11/29/2024, Expires: Start: 11-29-2024 End: 02-28-2025 Folate [Mass/volume] in Serum or Plasma FOLATE, SERUM Lab Routine S/P biliopancreatic diversion with duodenal switch BMI 70 and over, adult (HCC) TONEY (obstructive sleep apnea) Expected: 11/29/2024, Expires: 02/28/2025 [facility] Work Phone: Comment on above: Expected: 11/29/2024, Expires: Start: 11-29-2024 End: 02-28-2025 Hemoglobin A1c in Blood HEMOGLOBIN A1C Lab Routine S/P biliopancreatic diversion with duodenal switch BMI 70 and over, adult (HCC) TONEY (obstructive sleep apnea) Expected: 11/29/2024, Expires: 02/28/2025 [facility] Comment on above: Expected: 11/29/2024, Expires: Start: 11-29-2024 End: 02-28-2025 Iron and Iron binding capacity panel - Serum or Plasma IRON AND TIBC Lab Routine S/P biliopancreatic diversion with duodenal switch BMI 70 and over, adult (HCC) TONEY (obstructive sleep apnea) Expected: 11/29/2024, Expires: 02/28/2025 [facility] Comment on above: Expected: 11/29/2024, Expires: Start: 11-29-2024 End: 02-28-2025 Parathyrin.intact [Mass/volume] in Serum or Plasma PTH INTACT Lab Routine S/P biliopancreatic diversion with duodenal switch BMI 70 and over, adult (HCC) TONEY (obstructive sleep apnea) Expected: 11/29/2024, Expires: 02/28/2025 [facility] Comment on above: Expected: 11/29/2024, Expires: Start: 11-29-2024 End: 02-28-2025 Retinol [Mass/volume] in Serum or Plasma VITAMIN A/RETINOL Lab Routine S/P biliopancreatic diversion with duodenal switch BMI 70 and over, adult (HCC) TONYE (obstructive sleep apnea) Expected: 11/29/2024, Expires: 02/28/2025 [facility] Comment on above: Expected: 11/29/2024, Expires: Start: 11-29-2024 End: 02-28-2025 Thyrotropin [Units/volume] in Serum or Plasma THYROID STIMULATING HORMONE Lab Routine S/P biliopancreatic diversion with duodenal switch BMI 70 and over, adult (HCC) OTNEY (obstructive sleep apnea) Expected: 11/29/2024, Expires: 02/28/2025 [facility] Comment on above: Expected: 11/29/2024, Expires: Start: 11-29-2024 End: 02-28-2025 VITAMIN B1 (THIAMINE), WHOLE BLOOD VITAMIN B1 (THIAMINE), WHOLE BLOOD Lab Routine S/P biliopancreatic diversion with duodenal switch BMI 70 and over, adult (HCC) TONEY (obstructive sleep apnea) Expected: 11/29/2024, Expires: 02/28/2025 [facility] Comment on above: Expected: 11/29/2024, Expires: Start: 11-29-2024 End: 02-28-2025 Zinc [Mass/volume] in Serum or Plasma ZINC BLD Lab Routine S/P biliopancreatic diversion with duodenal switch BMI 70 and over, adult (HCC) TONEY (obstructive sleep apnea) Expected: 11/29/2024, Expires: 02/28/2025 [facility] Comment on above: Expected: 11/29/2024, Expires: Start: 11-23-2024 End: 11-23-2024 Follow-up encounter 11/23/2024 10:45 AM EDT [facility] [address] [place] [address] Amina Nieto MD [address] [place] [address] weight management follow up BMI [facility] Comment on above: weight management follow up Start: 11-14-2024 End: 11-14-2024 Patient encounter procedure 11/14/2024 12:40 PM EDT Office Visit LIZET LEON [address] [place] [phone] Mariia Quinteros PA [address] [place], [place] [id number] LIZET PICHARDOEVUE Start: 10-19-2024 Adult BMI Screening Adult BMI Screening [facility] Start: 10-19-2024 Tobacco Screening Tobacco Screening [facility] Start: 10-05-2024 Urine culture [facility] Start: 10-05-2024 Bacteria identified in Urine by Culture Urine Culture [facility] Start: 09-14-2024 End: 09-14-2024 Patient encounter procedure 09/14/2024 2:20 PM EDT Office Visit LIZET LEON [address] [place] [phone] Mariia Quinteros PA [address] [place] [address] LIZET PICHARDOEVUE Start: 09-09-2024 End: 09-09-2024 Patient encounter procedure 09/09/2024 9:45 AM EDT Appointment [facility] - ENDO [address] [place] [address] [place] [address] [place], [place] [id number] EGD pre op scheduled by phone [facility] - ENDO Comment on above: EGD pre op scheduled by phone Start: 09-02-2024 End: 09-02-2024 Patient encounter procedure 09/02/2024 10:00 AM EST Appointment [facility] Interventional Radiology [address] [place] [phone] Peyman Holt MD [address] [facility] [place] [address] [facility] Start: 08-30-2024 Anxiety Screening Anxiety Screening [facility] Start: 08-30-2024 Depression Screening Depression Screening [facility] Start: 08-24-2024 End: 08-24-2024 Patient encounter procedure 08/24/2024 11:00 AM EST Office Visit Lisbeth Segura [facility] - Medical Oncology [address] [place] [phone] Namita Oconnell PA [address] [facility] [address] [place] [address] Lisbeth L [place] [facility] - Medical Oncology Start: 08-23-2024 End: 08-23-2024 Anesthesia consultation 08/23/2024 2:30 PM EST PAT Pre Anesthesia [address] [place] [address] [facility] [address] [place] [address] [id number] Pre Anesthesia Comment on above: [id number] Start: 08-22-2024 End: 08-22-2024 Anesthesia consultation 08/22/2024 1:00 PM EST PAT Pre Anesthesia [address] [facility] [address] [place] [address] [id number] Pre Anesthesia Comment on above: [id number] Start: 08-15-2024 End: 08-15-2025 Guidance for placement of drainage catheter for abscess IR abscess drain soft tissue Imaging Routine Pelvic mass in female Expected: 08/15/2024, Expires: 08/15/2025 [facility] Work Phone: Comment on above: Expected: 08/15/2024, Expires: Start: 08-12-2024 End: 08-12-2024 Admission to same day surgery center [facility] - Surgery Comment on above: DAVINCI CYSTECTOMY OVARIAN [41727 (CPT ) ] DAVINCI DV5 CYSTECTO MY OVARIAN [02216 (CPT )] Start: 08-12-2024 End: 08-12-2024 Exploratory laparotomy celiotomy w/wo biopsy spx [facility] Start: 08-12-2024 End: 08-12-2024 Laparoscopy w/rmvl adnexal structures [facility] Start: 08-12-2024 End: 08-12-2024 Laps fulg/exc ovary viscera/peritoneal surface [facility] Start: 08-12-2024 Subsequent hospital visit by physician [facility] Start: 08-09-2024 End: 08-09-2024 Admission to establishment 08/09/2024 2:45 PM EST Support Visit [facility] Pre-Admission Clinic On [address] [address] [facility] Pre-Admission Clinic On [facility] Start: 08-08-2024 End: 08-08-2024 Follow-up encounter 08/08/2024 9:30 AM EST [facility] BMI [facility] REJ [address] [place] [address] Amina Nieto MD [address] [place] [address] weight management follow up BMI [facility] Comment on above: weight management follow up Start: 08-08-2024 End: 08-08-2024 Admission to same day surgery center 08/08/2024 8:00 AM EST [facility] General Surgery [address] [place] [address] [place] [address] gastrectomy 08/04/2023, year post op General Surgery Comment on above: gastrectomy 08/04/2023, year post op Start: 07-04-2024 End: 07-04-2024 Patient encounter procedure 07/04/2024 2:20 PM EST Office Visit [facility] [address] [place] [phone] Jamie Harley DO [address] [place] [address] [facility] Start: 06-13-2024 End: 06-13-2024 Patient encounter procedure 06/13/2024 10:15 AM EST Office Visit [facility] [address] [place] [address] Bushra Nevarez [employer] [address] [place] [address] [facility] Start: 06-01-2024 End: 06-01-2024 Patient encounter procedure 06/01/2024 10:45 AM EST Office Visit [facility] [address] [place] [address] Bushra Nevarez [employer] [address] [place] [address] Arthritis of right knee (Primary Dx); Right knee pain, unspecified chronicity [facility] Comment on above: Arthritis of right knee (Primary Dx); Right knee pain, unspecified chronicity Start: 05-05-2024 End: 05-05-2024 ambulatory 05/05/2024 1:00 PM EST Treatment [facility] [address] [place] [address] Babar Lipscomb, LONNY [facility] Start: 05-05-2024 End: 05-05-2024 Patient encounter procedure Endocrinology BMI Comment on above: 6 mo post op Start: 05-03-2024 End: 05-03-2024 Patient encounter procedure 05/03/2024 2:40 PM EST Office Visit [facility] [address] [facility] [place] [phone] Jamie Harley, DO [address] [facility] [address] [place], [place] [phone] [facility] Start: 05-03-2024 End: 05-03-2024 ambulatory 05/03/2024 1:30 PM EST Treatment [facility] [address] [place] [phone] Sherry Cuellar, PT [facility] Start: 04-29-2024 End: 04-29-2024 Patient encounter procedure 04/29/2024 1:00 PM EDT Office Visit [facility] [address] [place] [address] [place] [address] lab [facility] Comment on above: lab Start: 04-28-2024 End: 04-28-2024 ambulatory 04/28/2024 1:00 PM EDT Treatment [facility] [address] [place] [address] Prince Colindres, STE[employer] [facility] Start: 04-27-2024 End: 04-27-2025 [...] [place] [address] [place] [phone] Darrel Mccauley MD [address] [place] [address] [facility] [place] [address] Start: 04-26-2024 End: 04-26-2024 ambulatory 04/26/2024 12:30 PM EDT Treatment [facility] [address] [place] [address] Jens Prince, [employer] [facility] Start: 04-21-2024 End: 04-21-2024 ambulatory [facility] Comment on above: Arrived Start: 04-19-2024 End: 07-19-2024 25-hydroxyvitamin D3 [Mass/volume] in Serum or Plasma VITAMIN D 25 HYDROXY Lab Routine BMI 60.0-69.9, adult (HCC) S/P bariatric surgery S/P biliopancreatic diversion with duodenal switch Prediabetes Expected: 04/19/2024, Expires: 07/19/2024 [facility] Comment on above: Expected: 04/19/2024, Expires: Start: 04-19-2024 End: 07-19-2024 CBC panel - Blood by Automated count COMPLETE BLOOD COUNT Lab Routine BMI 60.0-69.9, adult (HCC) S/P bariatric surgery S/P biliopancreatic diversion with duodenal switch Prediabetes Expected: 04/19/2024, Expires: 07/19/2024 [facility] Work Phone: Comment on above: Expected: 04/19/2024, Expires: Start: 04-19-2024 End: 07-19-2024 Cobalamin (Vitamin B12) [Mass/volume] in Serum or Plasma VITAMIN B12 Lab Routine BMI 60.0-69.9, adult (HCC) S/P bariatric surgery S/P biliopancreatic diversion with duodenal switch Prediabetes Expected: 04/19/2024, Expires: 07/19/2024 [facility] Comment on above: Expected: 04/19/2024, Expires: Start: 04-19-2024 End: 07-19-2024 Comprehensive metabolic 2000 panel - Serum or Plasma COMPREHENSIVE METABOLIC PANEL Lab Routine BMI 60.0-69.9, adult (HCC) S/P bariatric surgery S/P biliopancreatic diversion with duodenal switch Prediabetes Expected: 04/19/2024, Expires: 07/19/2024 [facility] Comment on above: Expected: 04/19/2024, Expires: Start: 04-19-2024 End: 07-19-2024 Folate [Mass/volume] in Serum or Plasma FOLATE, SERUM Lab Routine BMI 60.0-69.9, adult ([facility]) S/P bariatric surgery S/P biliopancreatic diversion with duodenal switch Prediabetes Expected: 04/19/2024, Expires: 07/19/2024 [facility] Comment on above: Expected: 04/19/2024, Expires: Start: 04-19-2024 End: 07-19-2024 Hemoglobin A1c in Blood HEMOGLOBIN A1C Lab Routine BMI 60.0-69.9, adult ([facility]) S/P bariatric surgery S/P biliopancreatic diversion with duodenal switch Prediabetes Expected: 04/19/2024, Expires: 07/19/2024 [facility] Comment on above: Expected: 04/19/2024, Expires: Start: 04-19-2024 End: 07-19-2024 Iron and Iron binding capacity panel - Serum or Plasma IRON AND TIBC Lab Routine BMI 60.0-69.9, adult ([facility]) S/P bariatric surgery S/P biliopancreatic diversion with duodenal switch Prediabetes Expected: 04/19/2024, Expires: 07/19/2024 [facility] Comment on above: Expected: 04/19/2024, Expires: Start: 04-19-2024 End: 07-19-2024 Lipid 1996 panel - Serum or Plasma LIPID PANEL BASIC Lab Routine BMI 60.0-69.9, adult ([facility]) S/P bariatric surgery S/P biliopancreatic diversion with duodenal switch Prediabetes Expected: 04/19/2024, Expires: 07/19/2024 [facility] Comment on above: Expected: 04/19/2024, Expires: Start: 04-19-2024 End: 07-19-2024 Parathyrin.intact [Mass/volume] in Serum or Plasma PTH INTACT Lab Routine BMI 60.0-69.9, adult ([facility]) S/P bariatric surgery S/P biliopancreatic diversion with duodenal switch Prediabetes Expected: 04/19/2024, Expires: 07/19/2024 [facility] Comment on above: Expected: 04/19/2024, Expires: Start: 04-19-2024 End: 07-19-2024 Retinol [Mass/volume] in Serum or Plasma VITAMIN A/RETINOL Lab Routine BMI 60.0-69.9, adult ([facility]) S/P bariatric surgery S/P biliopancreatic diversion with duodenal switch Prediabetes Expected: 04/19/2024, Expires: 07/19/2024 [facility] Comment on above: Expected: 04/19/2024, Expires: Start: 04-19-2024 End: 07-19-2024 Thyrotropin [Units/volume] in Serum or Plasma THYROID STIMULATING HORMONE Lab Routine BMI 60.0-69.9, adult ([facility]) S/P bariatric surgery S/P biliopancreatic diversion with duodenal switch Prediabetes Expected: 04/19/2024, Expires: 07/19/2024 [facility] Comment on above: Expected: 04/19/2024, Expires: Start: 04-19-2024 End: 07-19-2024 VITAMIN B1 (THIAMINE), WHOLE BLOOD VITAMIN B1 (THIAMINE), WHOLE BLOOD Lab Routine BMI 60.0-69.9, adult ([facility]) S/P bariatric surgery S/P biliopancreatic diversion with duodenal switch Prediabetes Expected: 04/19/2024, Expires: 07/19/2024 [facility] Comment on above: Expected: 04/19/2024, Expires: Start: 04-19-2024 End: 07-19-2024 Zinc [Mass/volume] in Serum or Plasma ZINC BLD Lab Routine BMI 60.0-69.9, adult (HCC) S/P bariatric surgery S/P biliopancreatic diversion with duodenal switch Prediabetes Expected: 04/19/2024, Expires: 07/19/2024 [facility] Comment on above: Expected: 04/19/2024, Expires: Start: 04-19-2024 End: 04-19-2024 ambulatory [facility] Comment on above: Arrived Start: 04-19-2024 End: 04-19-2024 Follow-up encounter 04/19/2024 11:30 AM EDT [facility] General Surgery [address] [place] [address] Amina Nieto MD [address] [place], [place] [id number] FOLLOW UP General Surgery Comment on above: FOLLOW UP Start: 04-14-2024 End: 04-14-2024 ambulatory 04/14/2024 12:30 PM EDT Treatment [facility] [address] [facility] [address] [place] [address] Prince Colindres PTA [facility] Start: 04-13-2024 End: 04-13-2024 Patient encounter procedure [facility] Comment on above: Right knee pain, unspecified chronicity (Primary Dx); Arthritis of right knee Start: 04-12-2024 End: 04-12-2024 Patient encounter procedure 04/12/2024 2:20 PM EDT Office Visit [facility] [address] [facility] [place] [phone] Jamie Harley DO [address] [facility] [place] [address] [facility] Start: 04-12-2024 End: 04-12-2024 ambulatory 04/12/2024 10:30 AM EDT Treatment [facility] [address] [place] [address] Prince Colindres PTA [facility] Start: 04-07-2024 End: 04-07-2024 ambulatory [facility] Comment on above: Arrived Start: 04-05-2024 End: 04-05-2024 ambulatory 04/05/2024 1:30 PM EDT Treatment [facility] [address] [place] [address] Sherry Cuellar, PT [facility] Start: 03-31-2024 End: 03-31-2024 ambulatory [facility] Comment on above: Low back pain, unspecified back pain lat erality, unspecified chronicity, unspecified whether sciatica present (Primary Dx) Start: 03-29-2024 End: 03-29-2024 Patient encounter procedure 03/29/2024 2:00 PM EDT Office Visit [facility] [place] [facility] [address] [place] [address] Darrel Mccauley MD [address] [place] [address] [facility] [place] [facility] Start: 03-29-2024 End: 03-29-2024 ambulatory 03/29/2024 11:30 AM EDT Treatment [facility] [address] [facility] [address] [place] [address] Prince Colindres, STE[employer] M[employer] [facility] Start: 03-24-2024 End: 03-24-2024 ambulatory 03/24/2024 1:00 PM EDT Treatment [facility] [address] [facility] [address] [place] [address] Sherry Cuellar, PT [facility] Start: 03-22-2024 End: 03-22-2024 ambulatory 03/22/2024 12:30 PM EDT Treatment [facility] [address] [facility] [address] [place] [address] Prince Colindres, STE[employer] [facility] Start: 03-17-2024 End: 03-17-2024 ambulatory [facility] Comment on above: Arrived Start: 03-15-2024 End: 03-15-2024 ambulatory 03/15/2024 12:30 PM EDT Treatment [facility] [address] [facility] [address] [place] [address] Sherry Cuellar, PT [facility] Start: 03-10-2024 End: 03-10-2024 ambulatory 03/10/2024 12:30 PM EDT Treatment [facility] [address] [facility] [address] [place] [address] Sherry Cuellar, PT [facility] Start: 03-08-2024 End: 03-08-2024 ambulatory 03/08/2024 12:30 PM EDT Treatment [facility] [address] [facility] [address] [place] [address] Prince Colindres PTA [facility] Start: 03-07-2024 End: 03-07-2024 Patient encounter procedure 03/07/2024 2:40 PM EDT Office Visit [facility] [address] [place] [address] Jamie Harley DO [address] [place] [place], [place] [phone] [facility] Start: 03-07-2024 End: 03-07-2025 US for US PELVIS-TRANSVAG IF INDICATED Imaging Routine Pelvic pain Right ovarian cyst Expected: 03/07/2024 (Approximate), Expires: 03/07/2025 [facility] Work Phone: Comment on above: Expected: 03/07/2024 (Approximate), Expi res: 03/07/2025 Start: 03-04-2024 End: 03-04-2024 ambulatory 03/04/2024 12:30 PM EDT Evaluation [facility] [address] [facility] [address] [place] [address] Sherry Cuellar, PT Arrived [facility] Comment on above: Arrived Start: 02-28-2024 Covid-19 Vaccine ( season) Covid-19 Vaccine ( season) [facility] Start: 02-28-2024 Covid-19 Vaccine ( season) Covid-19 Vaccine ( season) [facility] Start: 02-28-2024 Influenza vaccination [facility] Start: 02-10-2024 End: 02-10-2024 Follow-up encounter 02/10/2024 2:15 PM EDT [facility] Endocrinology BMI [address] [place] [address] Amina Nieto MD [address] [place] [address] follow up Endocrinology BMI Comment on above: follow up Start: 11-18-2023 End: 11-18-2023 ambulatory 11/18/2023 11:30 AM EDT Results Only [facility] [address] [facility] [address] [place] [address] [facility] Start: 11-04-2023 End: 11-04-2023 Admission to same day surgery center 11/04/2023 2:45 PM EDT - 11/04/2023 3:30 PM EDT Surgery [facility] [address] [place] [phone] Otilio Jefferson, DO [address] [address] DECOMPRESSION NERVE ULNAR [64472 (CPT )] [facility] Comment on above: DECOMPRESSION NERVE ULNAR [04025 (CPT )] Start: 11-04-2023 End: 11-04-2023 Anesthesia consultation 11/04/2023 2:45 PM EDT Anesthesia Event [facility] Surgery [address] [place] [address] Jared Delgado, DO [address] [place] [address] [facility] - Surgery Start: 11-04-2023 End: 11-04-2023 Neuroplasty &/transposition ulnar nerve elbow DECOMPRESSION NERVE ULNAR left ulnar neuropathy 11/04/2023 2:45 PM EDT [facility] Start: 11-04-2023 Subsequent hospital visit by physician 11/04/2023 2:45 PM EDT Hospital Encounter [facility] Surgery [address] [place] [phone] Otilio Jefferson, DO [address] [place] [address] [place] [address] [facility] Start: 10-26-2023 End: 01-25-2024 25-hydroxyvitamin D3 [Mass/volume] in Serum or Plasma VITAMIN D 25 HYDROXY Lab Routine S/P biliopancreatic diversion with duodenal switch Impaired intestinal absorption Expected: 10/26/2023 (Approximate), Expires: 01/25/2024 [facility] Work Phone: Comment on above: Expected: 10/26/2023 (Approximate), Expi res: 01/25/2024 Start: 10-26-2023 End: 01-25-2024 Alpha tocopherol [Mass/volume] in Serum or Plasma VITAMIN E/TOCOPHEROL Lab Routine S/P biliopancreatic diversion with duodenal switch Impaired intestinal absorption Expected: 10/26/2023 (Approximate), Expires: 01/25/2024 [facility] Work Phone: Comment on above: Expected: 10/26/2023 (Approximate), Expi res: 01/25/2024 Start: 10-26-2023 End: 01-25-2024 CBC panel - Blood by Automated count CBC Lab Routine S/P biliopancreatic diversion with duodenal switch Open abdominal incision with drainage, subsequent encounter Impaired intestinal absorption Expected: 10/26/2023 (Approximate), Expires: 01/25/2024 [facility] Work Phone: Comment on above: Expected: 10/26/2023 (Approximate), Expi res: 01/25/2024 Start: 10-26-2023 End: 01-25-2024 Cobalamin (Vitamin B12) [Mass/volume] in Serum or Plasma VITAMIN B12 BLOOD Lab Routine S/P biliopancreatic diversion with duodenal switch Impaired intestinal absorption Expected: 10/26/2023 (Approximate), Expires: 01/25/2024 [facility] Work Phone: Comment on above: Expected: 10/26/2023 (Approximate), Expi res: 01/25/2024 Start: 10-26-2023 End: 01-25-2024 Comprehensive metabolic 2000 panel - Serum or Plasma COMP METABOLIC PANEL Lab Routine S/P biliopancreatic diversion with duodenal switch Impaired intestinal absorption Expected: 10/26/2023 (Approximate), Expires: 01/25/2024 [facility] Work Phone: Comment on above: Expected: 10/26/2023 (Approximate), Expi res: 01/25/2024 Start: 10-26-2023 End: 01-25-2024 Ferritin [Mass/volume] in Serum or Plasma FERRITIN BLD Lab Routine S/P biliopancreatic diversion with duodenal switch Impaired intestinal absorption Expected: 10/26/2023 (Approximate), Expires: 01/25/2024 [facility] Work Phone: Comment on above: Expected: 10/26/2023 (Approximate), Expi res: 01/25/2024 Start: 10-26-2023 End: 01-25-2024 Folate [Mass/volume] in Serum or Plasma FOLATE SERUM Lab Routine S/P biliopancreatic diversion with duodenal switch Impaired intestinal absorption Expected: 10/26/2023 (Approximate), Expires: 01/25/2024 [facility] Work Phone: Comment on above: Expected: 10/26/2023 (Approximate), Expi res: 01/25/2024 Start: 10-26-2023 End: 01-25-2024 Hemoglobin A1c in Blood HGB A1C Lab Routine S/P biliopancreatic diversion with duodenal switch Impaired intestinal absorption Expected: 10/26/2023 (Approximate), Expires: 01/25/2024 [facility] Work Phone: Comment on above: Expected: 10/26/2023 (Approximate), Expi res: 01/25/2024 Start: 10-26-2023 End: 01-25-2024 Iron and Iron binding capacity panel - Serum or Plasma IRON + TIBC Lab Routine S/P biliopancreatic diversion with duodenal switch Impaired intestinal absorption Expected: 10/26/2023 (Approximate), Expires: 01/25/2024 [facility] Work Phone: Comment on above: Expected: 10/26/2023 (Approximate), Expi res: 01/25/2024 Start: 10-26-2023 End: 01-25-2024 Parathyrin.intact [Mass/volume] in Serum or Plasma PTH INTACT BLD Lab Routine S/P biliopancreatic diversion with duodenal switch Impaired intestinal absorption Expected: 10/26/2023 (Approximate), Expires: 01/25/2024 [facility] Work Phone: Comment on above: Expected: 10/26/2023 (Approximate), Expi res: 01/25/2024 Start: 10-26-2023 End: 01-25-2024 Retinol [Mass/volume] in Serum or Plasma VITAMIN A/RETINOL Lab Routine S/P biliopancreatic diversion with duodenal switch Impaired intestinal absorption Expected: 10/26/2023 (Approximate), Expires: 01/25/2024 [facility] Work Phone: Comment on above: Expected: 10/26/2023 (Approximate), Expi res: 01/25/2024 Start: 10-26-2023 End: 01-25-2024 VITAMIN B1 (THIAMINE), WHOLE BLOOD VITAMIN B1 (THIAMINE), WHOLE BLOOD Lab Routine S/P biliopancreatic diversion with duodenal switch Impaired intestinal absorption Expected: 10/26/2023 (Approximate), Expires: 01/25/2024 [facility] Work Phone: Comment on above: Expected: 10/26/2023 (Approximate), Expi res: 01/25/2024 Start: 10-26-2023 End: 01-25-2024 VITAMIN K VITAMIN K Lab Routine S/P biliopancreatic diversion with duodenal switch Impaired intestinal absorption Expected: 10/26/2023 (Approximate), Expires: 01/25/2024 [facility] Work Phone: Comment on above: Expected: 10/26/2023 (Approximate), Expi res: 01/25/2024 Start: 10-26-2023 End: 01-25-2024 Zinc [Mass/volume] in Serum or Plasma ZINC BLD Lab Routine S/P biliopancreatic diversion with duodenal switch Impaired intestinal absorption Expected: 10/26/2023 (Approximate), Expires: 01/25/2024 [facility] Work Phone: Comment on above: Expected: 10/26/2023 (Approximate), Expi res: 01/25/2024 Start: 06-29-2023 Depression Assessment Depression Assessment [facility] Start: 02-27-2023 Covid-19 Vaccine () Covid-19 Vaccine () [facility] Start: 02-27-2023 Influenza vaccination [facility] Start: 08-19-2022 Adult depression screening assessment DEPRESSION SCREENING [facility] Start: 06-29-2022 DEPRESSION ASSESSMENT DEPRESSION ASSESSMENT [facility] Start: 05-13-2022 End: 08-23-2022 Coagulation factor VIII activity actual/normal in Platelet poor plasma by Coagulation assay FACTOR VIII:C ASSAY Lab Routine BMI 70 and over, adult (HCC) Gastroesophageal reflux disease, unspecified whether esophagitis present Expected: 05/13/2022 (Approximate), Expires: 08/23/2022 [facility] Work Phone: Comment on above: Expected: 05/13/2022 (Approximate), Expi res: 08/23/2022 Start: 05-13-2022 End: 08-23-2022 CONFIRM BLOOD TYPE CONFIRM BLOOD TYPE Blood Bank Routine BMI 70 and over, adult (HCC) Gastroesophageal reflux disease, unspecified whether esophagitis present Expected: 05/13/2022 (Approximate), Expires: 08/23/2022 [facility] Work Phone: Comment on above: Expected: 05/13/2022 (Approximate), Expi res: 08/23/2022 Start: 05-13-2022 End: 08-23-2022 TYPE AND SCREEN,30 DAY TYPE AND SCREEN,30 DAY Blood Bank Routine BMI 70 and over, adult (HCC) Gastroesophageal reflux disease, unspecified whether esophagitis present Expected: 05/13/2022 (Approximate), Expires: 08/23/2022 [facility] Work Phone: Comment on above: Expected: 05/13/2022 (Approximate), Expi res: 08/23/2022 Start: 03-10-2022 End: 05-10-2022 25-hydroxyvitamin D3 [Mass/volume] in Serum or Plasma VITAMIN D 25 HYDROXY Lab Routine History of sleeve gastrectomy Expected: 03/10/2022, Expires: 05/10/2022 [facility] Work Phone: Comment on above: Expected: 03/10/2022, Expires: 2 Start: 03-10-2022 End: 05-10-2022 CBC W Auto Differential panel - Blood CBC + DIFF Lab Routine History of sleeve gastrectomy Expected: 03/10/2022, Expires: 05/10/2022 [facility] Work Phone: Comment on above: Expected: 03/10/2022, Expires: 2 Start: 03-10-2022 End: 05-10-2022 Cobalamin (Vitamin B12) [Mass/volume] in Serum or Plasma VITAMIN B12 BLOOD Lab Routine History of sleeve gastrectomy Expected: 03/10/2022, Expires: 05/10/2022 [facility] Work Phone: Comment on above: Expected: 03/10/2022, Expires: 2 Start: 03-10-2022 End: 05-10-2022 Comprehensive metabolic 2000 panel - Serum or Plasma COMP METABOLIC PANEL Lab Routine History of sleeve gastrectomy Expected: 03/10/2022, Expires: 05/10/2022 [facility] Work Phone: Comment on above: Expected: 03/10/2022, Expires: 2 Start: 03-10-2022 End: 05-10-2022 Folate [Mass/volume] in Serum or Plasma FOLATE SERUM Lab Routine History of sleeve gastrectomy Expected: 03/10/2022, Expires: 05/10/2022 [facility] Work Phone: Comment on above: Expected: 03/10/2022, Expires: 2 Start: 03-10-2022 End: 05-10-2022 Iron and Iron binding capacity panel - Serum or Plasma IRON + TIBC Lab Routine History of sleeve gastrectomy Expected: 03/10/2022, Expires: 05/10/2022 [facility] Work Phone: Comment on above: Expected: 03/10/2022, Expires: 2 Start: 03-10-2022 End: 05-10-2022 Prealbumin [Mass/volume] in Serum or Plasma PREALBUMIN BLD Lab Routine History of sleeve gastrectomy Expected: 03/10/2022, Expires: 05/10/2022 [facility] Work Phone: Comment on above: Expected: 03/10/2022, Expires: 2 Start: 03-10-2022 End: 05-10-2022 VITAMIN B1 (THIAMINE), WHOLE BLOOD VITAMIN B1 (THIAMINE), WHOLE BLOOD Lab Routine History of sleeve gastrectomy Expected: 03/10/2022, Expires: 05/10/2022 [facility] Work Phone: Comment on above: Expected: 03/10/2022, Expires: 2 Start: 02-27-2022 Influenza vaccination INFLUENZA (#1) [facility] Start: 12-01-2021 COVID-19 VACCINE (3 - Booster for Pfizer series) COVID-19 VACCINE (3 - Booster for Pfizer series) [facility] Start: 11-04-2021 End: 01-04-2022 CBC W Auto Differential panel - Blood CBC + DIFF Lab Routine History of sleeve gastrectomy Expected: 11/04/2021, Expires: 01/04/2022 [facility] Work Phone: Comment on above: Expected: 11/04/2021, Expires: 2 Start: 11-04-2021 End: 01-04-2022 Comprehensive metabolic 2000 panel - Serum or Plasma COMP METABOLIC PANEL Lab Routine History of sleeve gastrectomy Expected: 11/04/2021, Expires: 01/04/2022 [facility] Work Phone: Comment on above: Expected: 11/04/2021, Expires: 2 Start: 11-04-2021 End: 01-04-2022 Folate [Mass/volume] in Serum or Plasma FOLATE SERUM Lab Routine History of sleeve gastrectomy Expected: 11/04/2021, Expires: 01/04/2022 [facility] Work Phone: Comment on above: Expected: 11/04/2021, Expires: 2 Start: 11-04-2021 End: 01-04-2022 IRON + TIBC IRON + TIBC Lab Routine History of sleeve gastrectomy Expected: 11/04/2021, Expires: 01/04/2022 [facility] Work Phone: Comment on above: Expected: 11/04/2021, Expires: 2 Start: 11-04-2021 End: 01-04-2022 LIPID PANEL BASIC LIPID PANEL BASIC Lab Routine History of sleeve gastrectomy Expected: 11/04/2021, Expires: 01/04/2022 [facility] Work Phone: Comment on above: Expected: 11/04/2021, Expires: 2 Start: 11-04-2021 End: 01-04-2022 Prealbumin [Mass/volume] in Serum or Plasma PREALBUMIN BLD Lab Routine History of sleeve gastrectomy Expected: 11/04/2021, Expires: 01/04/2022 [facility] Work Phone: Comment on above: Expected: 11/04/2021, Expires: 2 Start: 11-04-2021 End: 01-04-2022 VITAMIN B1 (THIAMINE), WHOLE BLOOD VITAMIN B1 (THIAMINE), WHOLE BLOOD Lab Routine History of sleeve gastrectomy Expected: 11/04/2021, Expires: 01/04/2022 [facility] Work Phone: Comment on above: Expected: 11/04/2021, Expires: 2 Start: 11-04-2021 End: 01-04-2022 VITAMIN B12 BLOOD VITAMIN B12 BLOOD Lab Routine History of sleeve gastrectomy Expected: 11/04/2021, Expires: 01/04/2022 [facility] Work Phone: Comment on above: Expected: 11/04/2021, Expires: 2 Start: 11-04-2021 End: 01-04-2022 VITAMIN D 25 HYDROXY VITAMIN D 25 HYDROXY Lab Routine History of sleeve gastrectomy Expected: 11/04/2021, Expires: 01/04/2022 [facility] Work Phone: Comment on above: Expected: 11/04/2021, Expires: 2 Start: 09-23-2021 End: 11-23-2021 CBC panel - Blood by Automated count CBC Lab Routine Gastroesophageal reflux disease, unspecified whether esophagitis present Class 3 severe obesity with serious comorbidity and body mass index (BMI) of 60.0 to 69.9 in adult, unspecified obesity type (HCC) Postoperative malabsorption Expected: 09/23/2021, Expires: 11/23/2021 [facility] Work Phone: Comment on above: Expected: 09/23/2021, Expires: 2 Start: 09-23-2021 End: 11-23-2021 Choriogonadotropin ( test) [Presence] in Urine HCG QUAL UR Lab Routine Gastroesophageal reflux disease, unspecified whether esophagitis present Class 3 severe obesity with serious comorbidity and body mass index (BMI) of 60.0 to 69.9 in adult, unspecified obesity type (HCC) Postoperative malabsorption Expected: 09/23/2021, Expires: 11/23/2021 [facility] Work Phone: Comment on above: Expected: 09/23/2021, Expires: 2 Start: 09-23-2021 End: 11-23-2021 Comprehensive metabolic 2000 panel - Serum or Plasma COMP METABOLIC PANEL Lab Routine Gastroesophageal reflux disease, unspecified whether esophagitis present Class 3 severe obesity with serious comorbidity and body mass index (BMI) of 60.0 to 69.9 in adult, unspecified obesity type (HCC) Postoperative malabsorption Expected: 09/23/2021, Expires: 11/23/2021 [facility] Work Phone: Comment on above: Expected: 09/23/2021, Expires: 2 Start: 09-23-2021 End: 11-23-2021 FERRITIN BLD FERRITIN BLD Lab Routine Gastroesophageal reflux disease, unspecified whether esophagitis present Class 3 severe obesity with serious comorbidity and body mass index (BMI) of 60.0 to 69.9 in adult, unspecified obesity type (HCC) Postoperative malabsorption Expected: 09/23/2021, Expires: 11/23/2021 [facility] Work Phone: Comment on above: Expected: 09/23/2021, Expires: 2 Start: 09-23-2021 End: 11-23-2021 Folate [Mass/volume] in Serum or Plasma FOLATE SERUM Lab Routine Gastroesophageal reflux disease, unspecified whether esophagitis present Class 3 severe obesity with serious comorbidity and body mass index (BMI) of 60.0 to 69.9 in adult, unspecified obesity type (HCC) Postoperative malabsorption Expected: 09/23/2021, Expires: 11/23/2021 [facility] Work Phone: Comment on above: Expected: 09/23/2021, Expires: 2 Start: 09-23-2021 End: 11-23-2021 Hemoglobin A1c/Hemoglobin.total in Blood HGB A1C Lab Routine Gastroesophageal reflux disease, unspecified whether esophagitis present Class 3 severe obesity with serious comorbidity and body mass index (BMI) of 60.0 to 69.9 in adult, unspecified obesity type (HCC) Postoperative malabsorption Expected: 09/23/2021, Expires: 11/23/2021 [facility] Work Phone: Comment on above: Expected: 09/23/2021, Expires: 2 Start: 09-23-2021 End: 11-23-2021 IRON + TIBC IRON + TIBC Lab Routine Gastroesophageal reflux disease, unspecified whether esophagitis present Class 3 severe obesity with serious comorbidity and body mass index (BMI) of 60.0 to 69.9 in adult, unspecified obesity type (HCC) Postoperative malabsorption Expected: 09/23/2021, Expires: 11/23/2021 [facility] Work Phone: Comment on above: Expected: 09/23/2021, Expires: 2 Start: 09-23-2021 End: 11-23-2021 LIPID PANEL BASIC LIPID PANEL BASIC Lab Routine Gastroesophageal reflux disease, unspecified whether esophagitis present Class 3 severe obesity with serious comorbidity and body mass index (BMI) of 60.0 to 69.9 in adult, unspecified obesity type (HCC) Postoperative malabsorption Expected: 09/23/2021, Expires: 11/23/2021 [facility] Work Phone: Comment on above: Expected: 09/23/2021, Expires: 2 Start: 09-23-2021 End: 11-23-2021 NICOTINE & METAB, UR NICOTINE & METAB, UR Lab Routine Gastroesophageal reflux disease, unspecified whether esophagitis present Class 3 severe obesity with serious comorbidity and body mass index (BMI) of 60.0 to 69.9 in adult, unspecified obesity type (HCC) Postoperative malabsorption Expected: 09/23/2021, Expires: 11/23/2021 [facility] Work Phone: Comment on above: Expected: 09/23/2021, Expires: 2 Start: 09-23-2021 End: 11-23-2021 PTH INTACT BLD PTH INTACT BLD Lab Routine Gastroesophageal reflux disease, unspecified whether esophagitis present Class 3 severe obesity with serious comorbidity and body mass index (BMI) of 60.0 to 69.9 in adult, unspecified obesity type (HCC) Postoperative malabsorption Expected: 09/23/2021, Expires: 11/23/2021 [facility] Work Phone: Comment on above: Expected: 09/23/2021, Expires: 2 Start: 09-23-2021 End: 11-23-2021 Thyrotropin [Units/volume] in Serum or Plasma TSH BLD Lab Routine Gastroesophageal reflux disease, unspecified whether esophagitis present Class 3 severe obesity with serious comorbidity and body mass index (BMI) of 60.0 to 69.9 in adult, unspecified obesity type (HCC) Postoperative malabsorption Expected: 09/23/2021, Expires: 11/23/2021 [facility] Work Phone: Comment on above: Expected: 09/23/2021, Expires: 2 Start: 09-23-2021 End: 11-23-2021 TOX SCREEN ROUT UR TOX SCREEN ROUT UR Lab Routine Gastroesophageal reflux disease, unspecified whether esophagitis present Class 3 severe obesity with serious comorbidity and body mass index (BMI) of 60.0 to 69.9 in adult, unspecified obesity type (HCC) Postoperative malabsorption Expected: 09/23/2021, Expires: 11/23/2021 [facility] Work Phone: Comment on above: Expected: 09/23/2021, Expires: 2 Start: 09-23-2021 End: 11-23-2021 VITAMIN B1 (THIAMINE), WHOLE BLOOD VITAMIN B1 (THIAMINE), WHOLE BLOOD Lab Routine Gastroesophageal reflux disease, unspecified whether esophagitis present Class 3 severe obesity with serious comorbidity and body mass index (BMI) of 60.0 to 69.9 in adult, unspecified obesity type (HCC) Postoperative malabsorption Expected: 09/23/2021, Expires: 11/23/2021 [facility] Work Phone: Comment on above: Expected: 09/23/2021, Expires: 2 Start: 09-23-2021 End: 11-23-2021 VITAMIN B12 BLOOD VITAMIN B12 BLOOD Lab Routine Gastroesophageal reflux disease, unspecified whether esophagitis present Class 3 severe obesity with serious comorbidity and body mass index (BMI) of 60.0 to 69.9 in adult, unspecified obesity type (HCC) Postoperative malabsorption Expected: 09/23/2021, Expires: 11/23/2021 [facility] Work Phone: Comment on above: Expected: 09/23/2021, Expires: 2 Start: 09-23-2021 End: 11-23-2021 VITAMIN D 25 HYDROXY VITAMIN D 25 HYDROXY Lab Routine Gastroesophageal reflux disease, unspecified whether esophagitis present Class 3 severe obesity with serious comorbidity and body mass index (BMI) of 60.0 to 69.9 in adult, unspecified obesity type (HCC) Postoperative malabsorption Expected: 09/23/2021, Expires: 11/23/2021 [facility] Work Phone: Comment on above: Expected: 09/23/2021, Expires: 2 Start: 08-28-2021 COVID-19 VACCINE (3 - Booster for Pfizer series) COVID-19 VACCINE (3 - Booster for Pfizer series) [facility] Start: 08-28-2021 COVID-19 VACCINE (3 - Pfizer series) COVID-19 VACCINE (3 - Pfizer series) [facility] Start: 06-29-2021 DEPRESSION ASSESSMENT DEPRESSION ASSESSMENT [facility] Start: 05-30-2021 End: 05-30-2021 Nutrition therapy 05/30/2021 Clinical Support Encounter Nutrition and Dietetics Angelo Cedillo, RD [address] [place] [id number] [facility] Start: 05-17-2021 End: 05-17-2022 B12/folate level B12 & FOLATE Lab Routine S/P laparoscopic sleeve gastrectomy TONEY on CPAP Morbid obesity with body mass index of 50 or higher Gastroesophageal reflux disease, unspecified whether esophagitis present Other intestinal malabsorption Expected: 05/17/2021, Expires: 05/17/2022 [facility] Comment on above: Expected: 05/17/2021, Expires: 2 Start: 05-17-2021 End: 05-17-2022 Complete blood count with white cell differential, automated CBC, EDIF, PLATELET Lab Routine S/P laparoscopic sleeve gastrectomy TONEY on CPAP Morbid obesity with body mass index of 50 or higher Gastroesophageal reflux disease, unspecified whether esophagitis present Other intestinal malabsorption Expected: 05/17/2021, Expires: 05/17/2022 [facility] Comment on above: Expected: 05/17/2021, Expires: 2 Start: 05-17-2021 End: 05-17-2022 Comprehensive metabolic 2000 panel - Serum or Plasma COMPREHENSIVE METABOLIC PANEL Lab Routine S/P laparoscopic sleeve gastrectomy TONEY on CPAP Morbid obesity with body mass index of 50 or higher Gastroesophageal reflux disease, unspecified whether esophagitis present Other intestinal malabsorption Expected: 05/17/2021, Expires: 05/17/2022 [facility] Comment on above: Expected: 05/17/2021, Expires: 2 Start: 05-17-2021 End: 05-17-2022 Diagnostic radiography of chest, combined PA and lateral XR CHEST PA AND LATERAL Imaging Routine S/P laparoscopic sleeve gastrectomy TONEY on CPAP Morbid obesity with body mass index of 50 or higher Gastroesophageal reflux disease, unspecified whether esophagitis present Other intestinal malabsorption Expected: 05/17/2021, Expires: 05[facility]17/2022 [facility] Comment on above: Expected: 05/17/2021, Expires: 2 Start: 05-17-2021 End: 05-17-2022 Fluoroscopy of upper gastrointestinal tract XR FLUORO UPPER GI, WATER SOLUBLE AND/OR BARIUM CONTRAST Imaging Routine S/P laparoscopic sleeve gastrectomy Gastroesophageal reflux disease, unspecified whether esophagitis present Expected: 05/17/2021, Expires: 05/17/2022 [facility] Comment on above: Expected: 05/17/2021, Expires: 2 Start: 05-17-2021 End: 05-17-2022 Hemoglobin A1c/Hemoglobin.total in Blood HEMOGLOBIN A1C Lab Routine S/P laparoscopic sleeve gastrectomy TONEY on CPAP Morbid obesity with body mass index of 50 or higher Gastroesophageal reflux disease, unspecified whether esophagitis present Other intestinal malabsorption Expected: 05/17/2021, Expires: 05/17/2022 [facility] Comment on above: Expected: 05/17/2021, Expires: 2 Start: 05-17-2021 End: 05-17-2022 IRON/IRON BINDING/TRANSFERRIN IRON/IRON BINDING/TRANSFERRIN Lab Routine S/P laparoscopic sleeve gastrectomy TONEY on CPAP Morbid obesity with body mass index of 50 or higher Gastroesophageal reflux disease, unspecified whether esophagitis present Other intestinal malabsorption Expected: 05/17/2021, Expires: 05/17/2022 [facility] Comment on above: Expected: 05/17/2021, Expires: 2 Start: 05-17-2021 End: 05-17-2022 LIPID PANEL W CALCULATED LDL LIPID PANEL W CALCULATED LDL Lab Routine S/P laparoscopic sleeve gastrectomy TONEY on CPAP Morbid obesity with body mass index of 50 or higher Gastroesophageal reflux disease, unspecified whether esophagitis present Other intestinal malabsorption Expected: 05/17/2021, Expires: 05/17/2022 [facility] Comment on above: Expected: 05/17/2021, Expires: 2 Start: 05-17-2021 End: 05-17-2022 NOVEL CORONAVIRUS LAB 1 - NASOPHARYNGEAL NOVEL CORONAVIRUS LAB 1 - NASOPHARYNGEAL Microbiology STAT Screening for viral disease Expected: 05/17/2021, Expires: 05/17/2022 [facility] Comment on above: Expected: 05/17/2021, Expires: 2 Start: 05-17-2021 End: 05-17-2022 Standard ECG ECG ECG Routine S/P laparoscopic sleeve gastrectomy TONEY on CPAP Morbid obesity with body mass index of 50 or higher Gastroesophageal reflux disease, unspecified whether esophagitis present Other intestinal malabsorption Expected: 05/17/2021, Expires: 05/17/2022 [facility] Comment on above: Expected: 05/17/2021, Expires: 2 Start: 05-17-2021 End: 05-17-2022 Thyrotropin [Units/volume] in Serum or Plasma TSH Lab Routine S/P laparoscopic sleeve gastrectomy TONEY on CPAP Morbid obesity with body mass index of 50 or higher Gastroesophageal reflux disease, unspecified whether esophagitis present Other intestinal malabsorption Expected: 05/17/2021, Expires: 05/17/2022 [facility] Comment on above: Expected: 05/17/2021, Expires: 2 Start: 05-17-2021 End: 05-17-2022 VITAMIN B1 VITAMIN B1 Lab Routine S/P laparoscopic sleeve gastrectomy TONEY on CPAP Morbid obesity with body mass index of 50 or higher Gastroesophageal reflux disease, unspecified whether esophagitis present Other intestinal malabsorption Expected: 05/17/2021, Expires: 05/17/2022 [facility] Comment on above: Expected: 05/17/2021, Expires: 2 Start: 05-17-2021 End: 05-17-2022 VITAMIN D (25-HYDROXY,TOTAL) VITAMIN D (25-HYDROXY,TOTAL) Lab Routine S/P laparoscopic sleeve gastrectomy TONEY on CPAP Morbid obesity with body mass index of 50 or higher Gastroesophageal reflux disease, unspecified whether esophagitis present Other intestinal malabsorption Expected: 05/17/2021, Expires: 05/17/2022 [facility] Comment on above: Expected: 05/17/2021, Expires: 2 Start: 05-17-2021 End: 05-17-2022 ZINC, SERUM ZINC, SERUM Lab Routine S/P laparoscopic sleeve gastrectomy TONEY on CPAP Morbid obesity with body mass index of 50 or higher Gastroesophageal reflux disease, unspecified whether esophagitis present Other intestinal malabsorption Expected: 05/17/2021, Expires: 05/17/2022 [facility] Comment on above: Expected: 05/17/2021, Expires: 2 Start: 02-27-2021 Influenza vaccination INFLUENZA VACCINE (#1) [facility] Start: 04-06-2020 End: 04-06-2021 FL UGI FL UGI Imaging Routine S/P laparoscopic sleeve gastrectomy Expected: 04/06/2020, Expires: 04/06/2021 [place] Comment on above: Expected: 04/06/2020, Expires: 1 Start: 02-28-2020 Influenza vaccination Flu vaccine (#1) [place], [place] Start: 02-27-2020 Pneumococcal 0-64 years Vaccine (2 of 3 - PPSV23) Pneumococcal 0-64 years Vaccine (2 of 3 - PPSV23) [place], [place] Start: 02-27-2020 Pneumococcal vaccination [facility] Start: 08-31-2019 Hepatitis B Vaccine (3 of 3 - 19+ 3-dose series) Hepatitis B Vaccine (3 of 3 - 19+ 3-dose series) [facility] Start: 04-17-2019 Screening for malignant neoplasm of cervix Pap Smear [facility] Start: 2015 HPV TESTING HPV TESTING [facility] Start: 2015 Screening for malignant neoplasm of cervix [facility] Start: 2012 HPV Vaccine (1 - 3-dose SCDM series) HPV Vaccine (1 - 3-dose SCDM series) [facility] Start: 10-16-2011 PAP TESTING PAP TESTING [facility] Start: 10-16-2011 Screening for malignant neoplasm of cervix Pap Testing [facility] Start: 10-15-2009 Screening for malignant neoplasm of cervix Cervical Cancer Screening [facility] Start: 11-27-2007 Hepatitis B surface antibody level LDL Cholesterol [facility] Start: 2006 Screening for malignant neoplasm of cervix [facility] Start: 2004 Third diphtheria, tetanus and acellular pertussis (DTaP) vaccination TDAP (ADULT) [facility] Start: 2004 Urine microalbumin profile DTAP,TDAP,TD (1 - Tdap) [facility] Start: 2003 Adult BMI Follow Up Plan Adult BMI Follow Up Plan [facility] Start: 2003 Annual PCP Team Chronic Disease Visit Annual PCP Team Chronic Disease Visit [facility] Start: 2003 Anxiety Screening Anxiety Screening [facility] Start: 2003 Depression Screening Depression Screening [facility] Start: 2003 HEPATITIS C SCREENING HEPATITIS C SCREENING [facility] Start: 2003 Hepatitis C screening Hepatitis C Screening [facility] Start: 2003 HIV SCREENING HIV SCREENING [facility] Start: 2003 HIV screening HIV Screening [facility] Start: 2003 Tetanus vaccination TETANUS [facility] Start: 2000 HIV screening [facility] Start: 1997 Depression Screening Depression Screening [facility] Start: 1995 Diabetic foot examination Diabetic Foot Exam [facility] Start: 1995 Glaucoma screening Dilated Retinal Exam [facility] Start: 1995 Hepatitis B screening Urine Albumin:Creatinine Ratio [facility] Start: 1995 Meningococcal B vaccine (1 of 4 - Increased Risk Bexsero 2-dose series) Meningococcal B vaccine (1 of 4 - Increased Risk Bexsero 2-dose series) [place], [place] Start: 1990 COVID-19 VACCINE (1) COVID-19 VACCINE (1) [facility] Start: 1986 Varicella vaccine (1 of 2 - 2-dose childhood series) Varicella vaccine (1 of 2 - 2-dose childhood series) [place] Start: 1985 HEPATITIS B (1 of 3 - 3-dose series) HEPATITIS B (1 of 3 - 3-dose series) [facility] Start: 1985 Hepatitis C antibody, confirmatory test HEPATITIS C VIRUS SCREENING [facility] End: 08-03-2025 CA 125 CA 125 Lab Routine Pelvic mass in female 1 Occurrences starting 08/03/2024 until 08/03/2025 [facility] Work Phone: Comment on above: 1 Occurrences starting 08/03/2024 until 08/03/2025 End: 08-08-2025 CBC W Auto Differential panel - Blood CBC with auto diff Lab Routine Pelvic mass in female Right ovarian cyst Preop testing 1 Occurrences starting 08/08/2024 until 08/08/2025 [employer] Work Phone: Comment on above: 1 Occurrences starting 08/08/2024 until 08/08/2025 End: 08-08-2025 Comprehensive metabolic 2000 panel - Serum or Plasma Comprehensive metabolic panel Lab Routine Pelvic mass in female Right ovarian cyst Preop testing 1 Occurrences starting 08/08/2024 until 08/08/2025 [employer] Comment on above: 1 Occurrences starting 08/08/2024 until 08/08/2025 End: 04-02-2020 COVID-19 Ambulatory COVID-19 Ambulatory Lab Routine Preop testing 1 Occurrences starting 04/02/2020 until 04/02/2020 [place] Comment on above: 1 Occurrences starting 04/02/2020 until 04/02/2020 End: 12-04-2022 Ct abdomen & pelvis w/contrast material CT ABD/PEL W IVCON Radiology Routine History of sleeve gastrectomy Gastric fistula 1 Occurrences starting 11/04/2021 until 12/04/2022 [facility] Work Phone: Comment on above: 1 Occurrences starting 11/04/2021 until 12/04/2022 End: 08-15-2025 Cytology Cytology Pathology and Cytology Routine Pelvic mass in female 1 Occurrences starting 08/15/2024 until [facility]: 1 Occurrences starting 08/15/2024 until 08/15/2025 End: 09-23-2022 ECG COMPLETE ECG COMPLETE ECG Routine TONEY on CPAP Gastroesophageal reflux disease, unspecified whether esophagitis present Class 3 severe obesity with serious comorbidity and body mass index (BMI) of 60.0 to 69.9 in adult, unspecified obesity type (HCC) Postoperative malabsorption 1 Occurrences starting 09/23/2021 until 09/23/2022 [facility] Work Phone: Comment on above: 1 Occurrences starting 09/23/2021 until 09/23/2022 End: 05-31-2023 ECG COMPLETE ECG COMPLETE ECG Routine Abnormal weight gain Preop testing Snoring Sleep-disordered breathing Fatigue, unspecified type S/P bariatric surgery BMI 70 and over, adult ([facility]) 1 Occurrences starting 06/04/2022 until 05/31/2023 [facility] Work Phone: Comment on above: 1 Occurrences starting 06/04/2022 until 05/31/2023 End: 03-10-2024 ECG COMPLETE ECG COMPLETE ECG Routine Pre-op evaluation Morbid obesity with body mass index of 60.0-69.9 in adult ([facility]) Gastroesophageal reflux disease, unspecified whether esophagitis present TONEY on CPAP Bipolar affective disorder, remission status unspecified ([facility]) Thrombocytosis Migraine without status migrainosus, not intractable, unspecified migraine type 1 Occurrences starting 03/10/2023 until 03/10/2024 [facility] Work Phone: Comment on above: 1 Occurrences starting 03/10/2023 until 03/10/2024 End: 07-18-2025 EGD DIAGNOSTIC EGD DIAGNOSTIC Endoscopy Routine Epigastric pain 1 Occurrences starting 07/18/2024 until 07/18/2025 [facility] Work Phone: Comment on above: 1 Occurrences starting 07/18/2024 until 07/18/2025 End: 08-03-2025 HE4, S HE4, S Lab Routine Pelvic mass in female 1 Occurrences starting 08/03/2024 until 08/03/2025 [facility] Comment on above: 1 Occurrences starting 08/03/2024 until 08/03/2025 Oxygen therapy [[facility] Data Set] Initiate Oxygen Therapy Protocol Respiratory Care Routine Daily until discontinued starting 04/06/2020 [facility] on above: Daily until discontinued starting 2019 Patient referral [facility] Work Phone: Phase I & II - meter ed glucose Phase I & II - metered glucose Point of Care Testing Routine As Needed until discontinued starting 04/06/2020 [facility] Comment on above: As Needed until discontinued starting End: 05-31-2023 Polysomnogram POLYSOMNOGRAM (PSG) Procedures Routine Abnormal weight gain Preop testing Snoring Sleep-disordered breathing Fatigue, unspecified type S/P bariatric surgery BMI 70 and over, adult (HCC) 1 Occurrences starting 06/04/2022 until 05/31/2023 [facility] Work Phone: Comment on above: 1 Occurrences starting 06/04/2022 until 05/31/2023 End: 08-08-2025 , urine , urine Lab Routine Pelvic mass in female Right ovarian cyst Preop testing 1 Occurrences starting 08/08/2024 until 08/08/2025 [facility] Comment on above: 1 Occurrences starting 08/08/2024 until 08/08/2025 End: 10-23-2022 Radiologic exam chest 2 views XR CHEST 2V FRONTAL/LAT Radiology Routine TONEY on CPAP Gastroesophageal reflux disease, unspecified whether esophagitis present Class 3 severe obesity with serious comorbidity and body mass index (BMI) of 60.0 to 69.9 in adult, unspecified obesity type (HCC) Postoperative malabsorption 1 Occurrences starting 09/23/2021 until 10/23/2022 [facility] Work Phone: Comment on above: 1 Occurrences starting 09/23/2021 until 10/23/2022 End: 05-18-2023 Radiologic exam chest 2 views XR CHEST 2V FRONTAL/LAT Radiology Routine BMI 70 and over, adult (HCC) Gastroesophageal reflux disease, unspecified whether esophagitis present 1 Occurrences starting 04/18/2022 until 05/18/2023 [facility] Work Phone: Comment on above: 1 Occurrences starting 04/18/2022 until 05/18/2023 End: 07-01-2023 Radiologic exam chest 2 views XR CHEST 2V FRONTAL/LAT Radiology Routine Abnormal weight gain Preop testing Snoring Sleep-disordered breathing Fatigue, unspecified type S/P bariatric surgery BMI 70 and over, adult (HCC) 1 Occurrences starting 06/04/2022 until 07/01/2023 [facility] Work Phone: Comment on above: 1 Occurrences starting 06/04/2022 until 07/01/2023 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 Procedures Routine BMI 70 and over, adult (HCC) Gastroesophageal reflux disease, unspecified whether esophagitis present Ordered: 04/18/2022 [facility] Work Phone: Comment on above: Ordered: 04/18/2022 End: 08-17-2025 RF Gastrointestinal tract upper Views W barium contrast PO XR UPPER GI SINGLE CONTRAST Radiology Routine Epigastric pain 1 Occurrences starting 07/18/2024 until 08/17/2025 [facility] Comment on above: 1 Occurrences starting 07/18/2024 until 08/17/2025 Surgical Pathology Surgical Path ology Lab Routine Release Upon Ordering for 1 Occurrences starting 04/06/2020 [place] Comment on above: Release Upon Ordering [...] (HCC) 1 Occurrences starting 09/23/2021 until 10/23/2022 [facility] Work Phone: Comment on above: 1 Occurrences starting 09/23/2021 until 10/23/2022 End: 12-04-2022 XR UPPER GI SINGLE CONTRAST XR UPPER GI SINGLE CONTRAST Radiology Routine History of sleeve gastrectomy Gastric fistula 1 Occurrences starting 11/04/2021 until 12/04/2022 [facility] Work Phone: Comment on above: 1 Occurrences starting 11/04/2021 until 12/04/2022 [facility] Immunizations Immunization Date Immunization Notes Care Provider Octavio camacho 06-02-2024 influenza virus vacc ine, unspecified formulation Dinah Perez PhD Work Phone: [facility] 06-13-2021 Influenza, injectabl e, Madin [place] Canine Kidney, preservative free, quadrivalent Pacc 2 Work Phone: [facility] 06-13-2021 influenza virus vacc ine, unspecified formulation Pacc 2 Work Phone: [facility] 01-04-2020 meningococcal oligosaccharide (groups A, C, Y and W-135) diphtheria toxoid conjugate vaccine (MCV4O) Pacc 2 Work Phone: [facility] 01-04-2020 meningococcal vaccin e of unknown formulation and unknown serogroups [place], [place] 01-02-2020 pneumococcal conjuga te vaccine, 13 valent Pacc 2 Work Phone: [facility] 01-02-2020 tuberculin skin test ; purified protein derivative solution, intradermal Amina Nieto MD Work Phone: [facility] 12-26-2019 tuberculin skin test ; purified protein derivative solution, intradermal Amina Nieto MD Work Phone: [facility] 08-11-2019 tetanus toxoid, redu herbie diphtheria toxoid, and acellular pertussis vaccine, adsorbed Pacc 2 Work Phone: [facility] 06-20-2019 influenza, injectabl e, quadrivalent, preservative free Pacc 2 Work Phone: [facility] 06-07-2019 influenza, injectabl e, quadrivalent, preservative free Pacc 2 Work Phone: [facility] 05-30-2019 influenza, high dose seasonal, preservative-free Pacc 2 Work Phone: [facility] 04-04-2019 hepatitis B vaccine, adult dosage Pacc 2 Work Phone: [facility] 03-02-2019 hepatitis B vaccine, adult dosage Pacc 2 Work Phone: [facility] 05-12-2017 influenza, injectabl e, quadrivalent, preservative free Pacc 2 Work Phone: [facility] 04-21-2016 influenza, seasonal, injectable, preservative free [facility] 04-27-2015 influenza, injectabl e, madin jared canine kidney, preservative free Pacc 2 Work Phone: [facility] 12-18-2014 haemophilus influenz ae type b vaccine, PRP-T conjugate Pacc 2 Work Phone: [facility] 12-18-2014 meningococcal oligosaccharide (groups A, C, Y and W-135) diphtheria toxoid conjugate vaccine (MCV4O) Pacc 2 Work Phone: [facility] Payers Date Payer Category Payer Self-pay [id number] 2022 Medicaid [id number] 2022 Unknown 2020 Medicaid [id number]. [id number] 2020 Unknown [id number] [id number].3. [id number] 2014 Unknown [id number] 2012 Medicaid HMO [employer] ADVANT AGE [id number]. [id number] 1985 Unknown [id number] 2.16.840.1.400946.3.579.2.177 1985 Unknown [id number] 2.16.840.1.043468.3.579.2.173 1985 Unknown [id number] 2.16.840.1.122399.3.579.2.175 1985 Unknown [id number] 2.16.840.1.992402.3.579.2.593 1985 Unknown [id number] 2.16.840.1.212328.3.579.2.593 1985 Unknown [id number] 2.16.840.1.733102.3.579.2.593 1985 Unknown [id number] 2.16.840.1.587934.3.579.2.593 1985 Unknown [id number] 2.16.840.1.607336.3.579.2.593 1985 Unknown [id number] 2.16.840.1.745496.3.579.2.593 1985 Unknown [id number] 2.16.840.1.084167.3.579.2.593 1985 Unknown [id number] 2.16.840.1.006038.3.579.2.593 1985 Unknown [id number] 2.16.840.1.366901.3.579.2.196 1985 Unknown [id number] 2.16.840.1.200067.3.579.2.1286 1985 Unknown [id number] 2.16.840.1.628410.3.579.2.1286 1985 Unknown [id number] 2.16.840.1.419163.3.579.2.1286 1985 Unknown [id number] 2.16.840.1.771964.3.579.2.1286 1985 Unknown [id number] 2.16.840.1.208088.3.579.2.1285 1985 Unknown [id number] 2.16.840.1.240561.3.579.2.1285 1985 Unknown [id number] 2.16.840.1.978979.3.579.2.1285 1985 Unknown [id number] 2.16.840.1.109112.3.579.2.1285 1985 Unknown [id number] 2.16.840.1.314600.3.579.2.1285 1985 Unknown [id number] 2.16.840.1.152256.3.579.2.1285 1985 Unknown [id number] 2.16840.1.274418.3.579.2.1285 1985 Unknown [id number] 2.16840.1.149661.3.579.2.1285 1985 Unknown [id number] 2.16840.1.003048.3.579.2.1285 1985 Unknown [id number] 2.16840.1.454468.3.579.2.1285 1985 Unknown [id number] 2.16.840.1.565826.3.579.2.1285 1985 Unknown [id number] 2.16840.1.094266.3.579.2.1285 1985 Unknown [id number] 2.16840.1.313121.3.579.2.1285 1985 Unknown [id number] 2.16840.1.949488.3.579.2.1285 1985 Unknown [id number] 2.16.840.1.134539.3.579.2.1285 1985 Unknown [id number] 2.16.840.1.331462.3.579.2.1285 1985 Unknown [id number] 2.16840.1.264292.3.579.2.1258 1985 Unknown [id number] 2.16.840.1.270751.3.579.2.1258 1985 Unknown [id number] 2.16.840.1.577019.3.579.2.1258 1985 Unknown [id number] 2.16.840.1.826320.3.579.2.1258 1985 Unknown [id number] 2.16.840.1.177082.3.579.2.1258 1985 Unknown [id number] 2.16.840.1.974925.3.579.2.1258 1985 Unknown [id number] 2.16.840.1.896508.3.579.2.1258 1985 Unknown [id number] 2.840.1.504889.3.579.2.1258 1985 Unknown [id number] 2.16840.1.100637.3.579.2.1258 1985 Unknown [id number] 2.16840.1.976863.3.579.2.1258 1985 Unknown [id number] 2.16.840.1.815977.3.579.2.1258 1985 Unknown [id number] 2.16840.1.051561.3.579.2.1258 1985 Unknown [id number] 2.16.840.1.720685.3.579.2.1258 1985 Unknown [id number] 2.16.840.1.284639.3.579.2.1258 1985 Unknown [id number] 2.16.840.1.006134.3.579.2.1258 1985 Unknown [id number] 2.16840.1.831574.3.579.2.1258 1985 Unknown [id number] 2.16.840.1.094179.3.579.2.1259 1985 Unknown [id number] 2.16.840.1.696081.3.579.2.1259 1985 Unknown [id number] 2.16.840.1.775874.3.579.2.1259 1985 Unknown [id number] 2.16.840.1.479234.3.579.2.9 1985 Unknown [id number] 2.16.840.1.227450.3.579.2.1259 1985 Unknown [id number] 2.16.840.1.303436.3.579.2.1259 1985 Unknown [id number] 2.16.840.1.215942.3.579.2.718 1985 Unknown [id number] 2.16.840.1.254715.3.579.2.8 1985 Unknown [id number] 2.16.840.1.678588.3.579.2.718 1959 Unknown [id number] 2.16.840.1.881293.19 Unknown [id number] 2.16.840.1.126403.3.579.2.531 Social History Date Type Detail Facility Start: 04-06-2020 End: 03-10-2023 Tobacco smoking status OKIS Former smoker [facility] Start: 04-06-2020 Tobacco use and exposure Former user [place] Start: 04-06-2020 End: 08-13-2024 Alcohol intake Current non-drinker of alcohol (finding) [place], [place] Start: 1985 Sex Assigned At Not on file [place] Start: 10-25-2021 End: 02-12-2022 Exposure to SARS-CoV-2 (event) Not sure [place] Start: 05-17-2021 Tobacco smoking stat [facility] Never smoked tobacco [facility] Start: 05-17-2021 End: 03-10-2023 Tobacco use and exposure Smokeless tobacco non-user [facility] Start: 05-17-2021 Alcohol intake Lifetime non-d suresh (finding) [facility] Start: 06-29-2003 End: 12-27-2013 History of tobacco use Current smoker [facility] Start: 06-29-2003 End: 12-27-2013 History of tobacco use Cigarette Smoker [facility] Start: 05-06-2019 End: 01-15-2023 Cigarettes smoked current (pack per day) - Reported 0.5 [facility] Comment on above: [employer]; Start: 09-23-2021 End: 11-02-2023 Alcohol intake Ex-drinker (finding) [facility] Start: 09-23-2021 History SDOH Alcohol Comment None since 2012 [facility] Start: 1985 Sex Assigned At Female C [facility] Start: 12-05-2021 End: 01-15-2023 Sex Assigned At [facility] Start: 05-30-2012 Adult Depression Screening Assessment 0 [facility] Start: 07-09-2021 Gender identity Identifies as female gender (finding) [facility] Start: 07-09-2021 Sexual orientation Heterosexual (fin amanuel) [facility] Has the [employer], oil, or water company threatened to shut off services in your home in past 12Mo No [facility] (I/We) worried wheth er (my/our) food would run out before (I/we) got money to buy more. Never true [facility] Start: 08-31-2023 Alcohol Comment caffeine: 2-3 cups per day [facility] Start: 02-01-2015 End: 10-07-2024 Sex Female (finding) [facility] Start: 11-04-2024 Tobacco smoking stat us [facility]IS Smokes tobacco daily (finding) [facility] Medical Equipment Procedure Code Equipment Code Equipment Origin al Text Equipment Identifier Dates Stnt Esph 23mm 18.5fr 15.5cm - [id number] - [id number] Start: 06-26-2017 Goals Date Patient Goal Desired Activity /State Personal health goal Comment on above: Formatting of this n ote might be different from the original. Evaluation of progress towards goal: Patient's goal is to discharge to home. Functional Status Date Assessment Result Facility 08-11-2023 Are you deaf, or do you have serious difficulty hearing No 08/11/2023 12:43 PM Kira Sanchez RN No [facility] 08-11-2023 Are you blind, or do you have serious difficulty seeing, even when wearing glasses No 08/11/2023 12:43 PM Kira Sanchez, SUSAN No [facility] 08-11-2023 Do you have serious difficulty walking or climbing stairs No 08/11/2023 12:43 PM Kira Sanchez RN No [facility] 08-11-2023 Do you have difficul ty dressing or bathing No 08/11/2023 12:43 PM Kira Sanchez RN No [facility] 08-11-2023 Because of a physica l, mental, or emotional condition, do you have difficulty doing errands alone such as visiting a physician's office or shopping No 08/11/2023 12:43 PM Kira Sanchez RN No [facility] Mental Status Date Assessment Result Facility 08-11-2023 Because of a physica l, mental, or emotional condition, do you have serious difficulty concentrating, remembering, or making decisions No 08/11/2023 12:43 PM Kria Sanchez RN No [facility] Clinical Notes 05-17-2021 to 03-01-2025 Dinah Perez, PhD - 02/10/2025 8:51 AM EDTTelephone Encounter - Elieser Balderas APRN.CNP - 02/08/2025 3:00 PM EDTTelephone Encounter - Elieser Balderas APRN.CNP - 02/08/2025 3:00 PM EDT Note Date & Type Note Facility 03-01-2025 Hospital Discharge instructions Ambulatory OrdersReferral to Orthopedics Time Frame: 03/01/25, Location: None [facility] Work Phone: 02-20-2025 Note HNO ID: [id number] Author: ESTELLA FREEMAN, PhD Service: ? Author Type: Psychologist Type: Progress Notes Filed: 02/20/2025 16:41 Note Text: No show [facility] 02-10-2025 Note HNO ID: [id number] Author: DINAH PEREZ, PhD Service: ? Author Type: Psychologist Type: Progress Notes Filed: 02/13/2025 16:10 Note Text: Susi Ortiz [id number] February 13, 2025 [facility] Bariatric and Metabolic [facility] M61 Re-Boot Group CPT: - 5840585 Virtual Group Psychotherapy 3:00-3:52pm Re-Boot Program Relapse Prevention Patients attended a session part of a 12-week multidisciplinary program for weight regain following bariatric surgery. Patients previously provided verbal consent related [...] about their progress in the group. Mrs. Ortiz was an active participant in the session. She did verbalize an understanding of the material presented. Patient does appear to be an appropriate group candidate. She has been keeping food diaries daily. She lost 19 lb since the beginning of the month, which she attributed to taking a GLP-1, reducing portions, and consuming protein first. [...] Healthful Meal Planning Post-Surgery 01/23/25 Stimulus Control AND Mindful Eating 01/16/25 Maintaining an Exercise Routine 01/02/25 Social Eating AND Social Support Did not attend Relapse Prevention 02/13/25 Assessment: Eating disorder NOS Psychological Factors Affecting Class 3 Obesity Plan: Return to Re-Boot session in 1 week. Dinah Perez, Ph.D. Psychologist [facility] 02-10-2025 History of Present illness Narrative Susi Ortiz [id number] February 13, 2025 [facility] Bariatric and Metabolic [facility] M61 Re-Boot Group CPT: - 3448083 Virtual Group Psychotherapy 3:00-3:52pm Re-Boot Program Relapse Prevention Patients attended a session part of a 12-week multidisciplinary program for weight regain following bariatric surgery. Patients previously provided verbal consent related [...] about their progress in the group. Mrs. Ortiz was an active participant in the session. She did verbalize an understanding of the material presented. Patient does appear to be an appropriate group candidate. She has been keeping food diaries daily. She lost 19 lb since the beginning of the month, which she attributed to taking a GLP-1, reducing portions, and consuming protein first. [...] Perez, Ph.D. Psychologist documented in this encounter [facility] 02-08-2025 Telephone encounter Note Patient did not check in for the virtual PACC appt today. We called the patient and unable to leave a message as the voicemail was full. Please reschedule the patient. Thank you, KRYS Monson [facility] Work Phone: 02-08-2025 Miscellaneous Notes Patient did not check in for the virtual PACC appt today. We called the patient and unable to leave a message as the voicemail was full. Please reschedule the patient. Thank you, KRYS Monson documented in this encounter [facility] 02-06-2025 History of Present illness Narrative AMBULATORY PATIENT EDUCATION NOTE- Shared Virtual Nutrition Group This group visit was performed virtually due to the COVID-19 epidemic as an effort to protect patients and minimize exposure. Consent from patient received to conduct a group visit virtually. This Team Access Model visit is a virtual group encounter. It required patient-provider interaction for the medical decision making as documented below. I have communicated my name and active licensure. The patient s identity and physical location were verified at the time of this visit. Either the patient or their legal sales representative jewelry has been informed of the risks and [...] to, S/P bariatric surgery, as evidenced by BPD/DS surgery, 1.5 years post op Malnutrition [...] for BPD with DS (patient taking ADEK, 9874-2617 mg calcium citrate vitamins) Anatomy of BPD/DS [...] Group 2 units Total Time (mins): 70 Mayela Barnhart MS, RD,CSOWM,LD documented in this encounter [facility] 02-06-2025 Note HNO ID: [id number] Author: MAYELA BARNHART RD Service: ? Author Type: Registered Dietitian Type: Progress Notes Filed: 02/06/2025 16:24 Note Text: AMBULATORY PATIENT EDUCATION NOTE- Shared Virtual Nutrition Group This group visit was performed virtually due to the COVID-19 epidemic as an effort to protect patients and minimize exposure. Consent from patient received to conduct a group visit virtually. This Team Access Model visit is a virtual group encounter. It required patient-provider interaction for the medical decision making as documented below. I have communicated my name and active licensure. The patient?s identity and physical location were verified at the time of this visit. Either the patient or their legal sales representative jewelry has been informed of the risks and [...] to, S/P bariatric surgery, as evidenced by BPD/DS surgery, 1.5 years post op Malnutrition [...] for BPD with DS (patient taking ADEK, 7802-1944 mg calcium citrate vitamins) Anatomy of BPD/DS surgery (as it relates to digestion, absorption, dumping syndrome, and reactive hypoglycemia) following surgery Exercise related to personal SMART goals SMART GOAL: Practice not eating/drinking 3/week Increase protein by 30 grams/day 3/week Increase fluid by 32 ounces 3/week Nutrition Monitoring AND Evaluation: - adherence to above goals Criteria: weight check, labs, patient statement Need for Follow up: 1 Week Appointment Start Time: 3:00 PM Appointment End Time: 4:10 PM Time Spent on Consult: 70 minutes - Group MNT Billing Type: Ambulatory Group 2 units Total Time (mins): 70 Mayela Barnhart MS,RD,CSOWM,LD [facility] 01-27-2025 Note HNO ID: [id number] Author: DINAH PEREZ, PhD Service: ? Author Type: Psychologist Type: Progress Notes Filed: 01/30/2025 15:59 Note Text: [facility] Behavioral Services Progress Note January 30, 2025 Patient did not attend the following Reboot session: Cognitive strategies AND body image. Session Attendance Tracking: Topic Date Attended Program Orientation 12/28/24 Anatomy/Vitamins Exploring your Relationship with Food The Benefits of Physical Activity Emotional Eating Protein and Fluids Cognitive Strategies and Body Image Did not attend Healthful Meal Planning Post-Surgery 01/23/25 Stimulus Control AND Mindful Eating 01/16/25 Maintaining an Exercise Routine 01/02/25 Social Eating AND Social Support Did not attend Relapse Prevention Plan: Return to Re-Boot session in 1 week. Dinah Perez, Ph.D. Psychologist [facility] 01-27-2025 History of Present illness Narrative [facility] Bariatric Behavioral Services Progress Note January 30, 2025 Patient did not attend the following Reboot session: Cognitive strategies & body image. Session Attendance Tracking: Topic Date Attended Program Orientation 12/28/24 Anatomy/Vitamins Exploring your Relationship with Food The Benefits of Physical Activity Emotional Eating Protein and Fluids Cognitive Strategies and Body Image Did not attend Healthful Meal Planning Post-Surgery 01/23/25 Stimulus Control & Mindful Eating 01/16/25 Maintaining an Exercise Routine 01/02/25 Social Eating & Social Support Did not attend Relapse Prevention Plan: Return to Re-Boot session in 1 week. Dinah Perez, Ph.D. Psychologist documented in this encounter [facility] 01-23-2025 History of Present illness Narrative AMBULATORY PATIENT EDUCATION NOTE- Shared Virtual Nutrition Group This group visit was performed virtually due to the COVID-19 epidemic as an effort to protect patients and minimize exposure. Consent from patient received to conduct a group visit virtually. This Team Access Model visit is a virtual group encounter. It required patient-provider interaction for the medical decision making as documented below. I have communicated my name and active licensure. The patient s identity and physical location were verified at the time of this visit. Either the patient or their legal sales representative jewelry has been informed of the risks and benefits of -- and alternatives to -- treatment through a remote evaluation and consents to proceed with the evaluation remotely. TOPIC: - ReBoot Program Topic Healthy Meal Planning Multidisciplinary Programs for Weight gain following surgery. READINESS TO LEARN COGNITIVE ABILITY: Alert and oriented MOTIVATION TO LEARN: Interested FAMILY SUPPORT: Unable to assess - Family not present INSTRUCTION PROVIDED TO: Patient PATIENT LEARNS BEST BY: Multiple Methods FACTORS AFFECTING LEARNING: None PHYSICAL LIMITATIONS AFFECTING LEARNING: None LEARNING RESPONSE DIAGNOSIS: Altered Gastrointestinal Tract Function, related to, S/P bariatric surgery, as evidenced by BPD with LEIDA surgery, 2 years post op Malnutrition Screening Significant unintentional [...] changes to assist with weight management following BPD with DS () 1.5 years post op Height and weight provided by patient. Reports newly diagnosed with DM 2 and added in Trulicity x 3 weeks- she was successful journaling 3 meals/snacks on Boedo daily. SMART Goal Progress Desires continued weight loss 1-2 pounds. Resting Metabolic Rate: 2598 Reviewed nutrition principles of: Track intake for protein, vegetables, whole grains Follow Healthy plate- plate non starchy vegetables, plate lean protein, plan whole grains Total 5 servings of vegetables and fruit per day SMART GOAL: Practice not eating/drinking together at least 1/2 week Keep track of intake with 2000 calories and 96-128 grams protein Protein options include chicken/turkey, fish/seafood, lean beef or pork (3 grams of fat or less per ounce), eggs, cheese, cottage cheese, yogurt, beans, lentils, legumes, seeds, and nuts. OK to supplement with protein shakes or protein bars with at least 20 grams protein per serving. Consume a good variety of foods from all food groups Consume 25-35 grams fiber that includes non starchy vegetables, fruits, and whole grains/nuts/seeds. Discuss need for fiber supplement with RD if having issues with constipation or diarrhea. Consume at least 64 ounces fluids daily- consider limiting carbonation if experiencing heartburn or nausea. Day of injection and into next day: Get in balanced meal with at least 30 grams protein before injection in case you have nausea and limit high fat/high fiber foods and add in as tolerated. Rotate injection sites as needed to manage symptoms. Participate in routine and intentional physical activity with goal 150-250 minutes aerobic exercise and 3 days strength/resistance training. Try to have at least 1 meal per week with plant based proteins- OK to have Textured Vegetable Protein (TVP), Impossible brand, Morning Star, Boca. Consider taking daily mvi with iron and 1200 mg calcium citrate with Vitamin D (in divided doses). Nutrition Monitoring & Evaluation: - adherence to above goals Criteria: weight check, labs, patient statement Need for Follow up: 1 Week Appointment Start Time: 3:00 PM Appointment End Time: 4:07 PM Time Spent on Consult: 67 minutes - Group MNT Billing Type: Ambulatory Group 2 units Total Time (mins): 67 Mayela Barnhart MS, RD,CSOWM,LD documented in this encounter [facility] 01-23-2025 Note HNO ID: [id number] Author: MAYELA BARNHART RD Service: ? Author Type: Registered Dietitian Type: Progress Notes Filed: 01/23/2025 16:34 Note Text: AMBULATORY PATIENT EDUCATION NOTE- Shared Virtual Nutrition Group This group visit was performed virtually due to the COVID-19 epidemic as an effort to protect patients and minimize exposure. Consent from patient received to conduct a group visit virtually. This Team Access Model visit is a virtual group encounter. It required patient-provider interaction for the medical decision making as documented below. I have communicated my name and active licensure. The patient?s identity and physical location were verified at the time of this visit. Either the patient or their legal sales representative jewelry has been informed of the risks and benefits of -- and alternatives to -- treatment through a remote evaluation and consents to proceed with the evaluation remotely. TOPIC: - ReBoot Program Topic Healthy Meal Planning Multidisciplinary Programs for Weight gain following surgery. READINESS TO LEARN COGNITIVE ABILITY: Alert and oriented MOTIVATION TO LEARN: Interested FAMILY SUPPORT: Unable to assess - Family not present INSTRUCTION PROVIDED TO: Patient PATIENT LEARNS BEST BY: Multiple Methods FACTORS AFFECTING LEARNING: None PHYSICAL LIMITATIONS AFFECTING LEARNING: None LEARNING RESPONSE DIAGNOSIS: Altered Gastrointestinal Tract Function, related to, S/P bariatric surgery, as evidenced by BPD with LEIDA surgery, 2 years post op Malnutrition Screening Significant unintentional [...] changes to assist with weight management following BPD with DS () 1.5 years post op Height and weight provided by patient. Reports newly diagnosed with DM 2 and added in Trulicity x 3 weeks- she was successful journaling 3 meals/snacks on Star[place] arun daily. SMART Goal Progress Desires continued weight loss 1-2 pounds. Resting Metabolic Rate: 2598 Reviewed nutrition principles of: Track intake for protein, vegetables, whole grains Follow Healthy plate- ? plate non starchy vegetables, ? plate lean protein, ? plan whole grains Total 5 servings of vegetables and fruit per day SMART GOAL: Practice not eating/drinking together at least 1/2 week Keep track of intake with 2000 calories and 96-128 grams protein Protein options include chicken/turkey, fish/seafood, lean beef or pork (3 grams of fat or less per ounce), eggs, cheese, cottage cheese, yogurt, beans, lentils, legumes, seeds, and nuts. OK to supplement with protein shakes or protein bars with at least 20 grams protein per serving. Consume a good variety of foods from all food groups Consume 25-35 grams fiber that includes non starchy vegetables, fruits, and whole grains/nuts/seeds. Discuss need for fiber supplement with RD if having issues with constipation or diarrhea. Consume at least 64 ounces fluids daily- consider limiting carbonation if experiencing heartburn or nausea. Day of injection and into next day: Get in balanced meal with at least 30 grams protein before injection in case you have nausea and limit high fat/high fiber foods and add in as tolerated. Rotate injection sites as needed to manage symptoms. Participate in routine and intentional physical activity with goal 150-250 minutes aerobic exercise and 3 days strength/resistance training. Try to have at least 1 meal per week with plant based proteins- OK to have Textured Vegetable Protein (TVP), Impossible brand, Morning Star, Boca. Consider taking daily mvi with iron and 1200 mg calcium citrate with Vitamin D (in divided doses). Nutrition Monitoring AND Evaluation: - adherence to above goals Criteria: weight check, labs, patient statement Need for Follow up: 1 Week Appointment Start Time: 3:00 PM Appointment End Time: 4:07 PM Time Spent on Consult: 67 minutes - Group MNT Billing Type: Ambulatory Group 2 units Total Time (mins): 67 Mayela Barnhart MS,RD,CSOWM,LD [facility] [place] 01-13-2025 Note HNO ID: [id number] Author: DINAH PEREZ, PhD Service: ? Author Type: Psychologist Type: Progress Notes Filed: 01/16/2025 16:04 Note Text: Susi Ortiz [id number] January 16, 2025 [facility] Bariatric and Metabolic [facility] M61 Re-Boot Group CPT: - 2248679 Virtual Group Psychotherapy 3:00-4:00pm Re-Boot Program Stimulus Control AND Mindful Eating Patients attended a session part of a 12-week multidisciplinary program for weight regain following bariatric surgery. Patients previously provided verbal consent related to the use of virtual visits. Reviewed food diaries and progress with last week's behavioral goals. Patients identified problem cues in their environment. Reviewed stimulus control strategies for managing these cues. Facilitated a mindful eating exercise. Discussed tools for implementing mindful eating skills at home, including how to slow the pace of eating. Patients set SMART goals for the upcoming week. Ms. Ortiz was an active participant in the session. She did verbalize an understanding of the material presented. Patient does appear to be an appropriate group candidate. She has been keeping food diaries daily. She shared that one week ago, she was diagnosed with T2DM. This seemed to light a fire under to to make several changes, including tracking food intake + blood glucose readings on Baritastic, increasing protein, and eliminating snacking/emotional eating. She said it has been a complete 180. Past triggers for overeating included boredom while watching TV, and having chips at home. Last session's behavioral goals: Track 3/7 days - MET AND EXCEEDED (7x) 2. Try chair exercises - NOT MET Behavioral goals for the week: Separate eating AND drinking 2x/week Track food intake 7x/week Objective: Session Attendance Tracking: Topic Date Attended Program Orientation 12/28/24 Anatomy/Vitamins Exploring your Relationship with Food The Benefits of Physical Activity Emotional Eating Protein and Fluids Cognitive Strategies and Body Image Healthful Meal Planning Post-Surgery Stimulus Control AND Mindful Eating 01/16/25 Maintaining an Exercise Routine 01/02/25 Social Eating AND Social Support Did not attend Relapse Prevention Assessment: Eating disorder NOS Psychological Factors Affecting Class 3 Obesity Plan: Return to Re-Boot session in 1 week. Dinah Perez, Ph.D. Psychologist [facility] 01-13-2025 History of Present illness Narrative Susi Ortiz [id number] January 16, 2025 [facility] Bariatric and Metabolic [facility] M61 Re-Boot Group CPT: - 4157145 Virtual Group Psychotherapy 3:00-4:00pm Re-Boot Program Stimulus Control & Mindful Eating Patients attended a session part of a 12-week multidisciplinary program for weight regain following bariatric surgery. Patients previously provided verbal consent related to the use of virtual visits. Reviewed food diaries and progress with last week's behavioral goals. Patients identified problem cues in their environment. Reviewed stimulus control strategies for managing these cues. Facilitated a mindful eating exercise. Discussed tools for implementing mindful eating skills at home, including how to slow the pace of eating. Patients set SMART goals for the upcoming week. Ms. Ortiz was an active participant in the session. She did verbalize an understanding of the material presented. Patient does appear to be an appropriate group candidate. She has been keeping food diaries daily. She shared that one week ago, she was diagnosed with T2DM. This seemed to light a fire under to to make several changes, including tracking food intake + blood glucose readings on Baritastic, increasing protein, and eliminating snacking/emotional eating. She said it has been a complete 180. Past triggers for overeating included boredom while watching TV, and having chips at home. Last session's behavioral goals: Track 3/7 days - MET AND EXCEEDED (7x) 2. Try chair exercises - NOT MET Behavioral goals for the week: Separate eating & drinking 2x/week Track food intake 7x/week Objective: Session Attendance Tracking: Topic Date Attended Program Orientation 12/28/24 Anatomy/Vitamins Exploring your Relationship with Food The Benefits of Physical Activity Emotional Eating Protein and Fluids Cognitive Strategies and Body Image Healthful Meal Planning Post-Surgery Stimulus Control & Mindful Eating 01/16/25 Maintaining an Exercise Routine 01/02/25 Social Eating & Social Support Did not attend Relapse Prevention Assessment: Eating disorder NOS Psychological Factors Affecting Class 3 Obesity Plan: Return to Re-Boot session in 1 week. Dinah Perez, Ph.D. Psychologist documented in this encounter [facility] 01-10-2025 History of Present illness Narrative I have communicated my name and active licensure. The patient's identity and physical location were verified at the time of this visit. Either the patient or their legal sales representative jewelry has been informed of the risks and benefits of -- and alternatives to -- treatment through a remote evaluation and consents to proceed with the evaluation remotely. CC/HPI: 39 year old lady presents for follow up evaluation for medical weight loss. Intervention: Metformin and potentially Mounjaro as aduncts to TLI (therapeutic lifestyle interventions) for weight and sugar. General Health Updates: Patient specifies the following items as new or significant updates in general health since last appointment here: -currently attending Reboot sessions. Met with her PCP recently, who prescribed Trulicity for her new diagnosis of DM2. Diet: last OV BMI/RD: 01/02/2025 wasn't really hungry yesterday -B: cheesy scrambled eggs, -L: ham and cheese roll up -D: burger w/o the bun -snacks -beverages-does a good job with water-avoids soda/pop/ETOH; if she drinks juice, it's sugar free Physical activity: not too shabby-started doing chair exercises-doesn't do them everyday, depends on her back pain OTHER: -01/09/2025 OV BmI/Goodpaster -01/02/2025 OV BMI/Fawad -01/02/2025 OV BMI/RD/Gloria Monsivais -11/29/2024 OV BMI/Gorty MEDS: See Epic PMH: Women: Control method: PSHX: PAST MEDICAL HISTORY Diagnosis Date Bipolar disorder (HCC) DDD (degenerative disc disease), lumbar Depression Eczema GERD (gastroesophageal reflux disease) Migraine tirzepatide, weight loss (ZEPBOUND) 2.5 mg/0.5 mL pen injector Inject 2.5 mg subcutaneously one time a week. Severe TONEY-AHI >30 tirzepatide (MOUNJARO) 2.5 mg/0.5 mL pen injector Inject 2.5 mg subcutaneously one time a week. metFORMIN ER (GLUCOPHAGE XR) 500 mg 24 [...] Take 60 mg by mouth once daily. ALLERGIES Allergen Reactions Adhes. Vfyd-Ccmj-Bf* Rash Adhesive Tape-Silic* Rash Augmentin [Amoxicil* Diarrhea Keflex [Cephalexin] Rash, Itching Penicillins Hives Ultram [Tramadol Hc* Itching PHYSICAL EXAMINATION: Wt (!) 193.7 kg (427 lb) LMP 07/08/2023 (Approximate) BMI 73.29 kg/m General: alert and appropriate, in no distress, well-hydrated, well nourished, happy, smiling, interactive, and pleasant lady Skin: no rash noted Head: normocephalic, no abnormality or lesion noted Eyes: no injection Respiratory: breathing non-labored REVIEW OF SYSTEMS Non-remarkable except for what is noted in HPI and/or Assessment/plan ASSESSMENT: Reviewed principles of energy metabolism, caloric intake and expenditure, and rationale for treatment program. Also reinforced need for reduced calorie, low fat diet and increased physical Activity. 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 Granda Weight and BMI today (01/10/25) = Weight and BMI previous visit dated: 11/29/2024 = 427 lb -continue Metformin; declines Topamax d/t side effects in the past. Wegovy and Zepbound not covered by insurance. Consider Phentermine or Wellbutrin if approved by her psychiatrist, or Naltrexone. -continue TLI (therapeutic lifestyle interventions) to include strength training; continue Reboot -labs done 01/20 Convo: -saw her PCP yesterday who confirmed her A1c as being high. PCP prescribed Trulicity which was covered by insurance, but wondering about Fabienne. -will send Fabienne. She did ask her psychiatriast about Phentermine and they suggested against trying d/t possible side effects with her other psychiatric medications. Has an appt on the February 09 with her PCP for follow up. Will attempt Fabienne, however, patient does have a prescription for Trulicity which is covered by her insurance. 2)TONEY-consider follow up with Sleep medicine Amina Nieto MD I spent a total of 30 minutes on the date of the service which included preparing to see the patient, [id number] patient care, obtaining and/or reviewing separately obtained history, counseling and educating the patient/family/caregiver, ordering medications, tests, or procedures, and care coordination (not separately reported). documented in this encounter [facility] 01-10-2025 Note HNO ID: [id number] Author: AMINA NIETO MD Service: ? Author Type: Physician Type: Progress Notes Filed: 01/23/2025 14:43 Note Text: I have communicated my name and active licensure. The patient's identity and physical location were verified at the time of this visit. Either the patient or their legal sales representative jewelry has been informed of the risks and benefits of -- and alternatives to -- treatment through a remote evaluation and consents to proceed with the evaluation remotely. CC/HPI: 39 year old lady presents for follow up evaluation for medical weight loss. Intervention: Metformin and potentially Mounjaro as aduncts to TLI (therapeutic lifestyle interventions) for weight and sugar. General Health Updates: Patient specifies the following items as new or significant updates in general health since last appointment here: -currently attending Reboot sessions. Met with her PCP recently, who prescribed Trulicity for her new diagnosis of DM2. Diet: last OV BMI/RD: 01/02/2025 wasn't really hungry yesterday -B: cheesy scrambled eggs, -L: ham and cheese roll up -D: burger w/o the bun -snacks -beverages-does a good job with water-avoids soda/pop/ETOH; if she drinks juice, it's sugar free Physical activity: not too shabby-started doing chair exercises-doesn't do them everyday, depends on her back pain OTHER: -01/09/2025 OV BmI/Goodpaster -01/02/2025 OV BMI/Fawad -01/02/2025 OV BMI/RD/Gloria Monsivais -11/29/2024 OV BMI/Gorty MEDS: See Epic PMH: Women: Control method: PSHX: PAST MEDICAL HISTORY Diagnosis Date Bipolar disorder (HCC) DDD (degenerative disc disease), lumbar Depression Eczema GERD (gastroesophageal reflux disease) Migraine tirzepatide, weight loss (ZEPBOUND) 2.5 mg/0.5 mL pen injector Inject 2.5 mg subcutaneously one time a week. Severe TONEY-AHI >30 tirzepatide (MOUNJARO) 2.5 mg/0.5 mL pen injector Inject 2.5 mg subcutaneously one time a week. metFORMIN ER (GLUCOPHAGE XR) 500 mg 24 [...] Take 60 mg by mouth once daily. ALLERGIES Allergen Reactions Adhes. Txre-Rbdx-[id number]* Rash Adhesive Tape-Silic* Rash Augmentin [Amoxicil* Diarrhea Keflex [Cephalexin] Rash, Itching Penicillins Hives Ultram [Tramadol Hc* Itching PHYSICAL EXAMINATION: Wt (!) 193.7 kg (427 lb) LMP 07/08/2023 (Approximate) BMI 73.29 kg/m? General: alert and appropriate, in no distress, well-hydrated, well nourished, happy, smiling, interactive, and pleasant lady Skin: no rash noted Head: normocephalic, no abnormality or lesion noted Eyes: no injection Respiratory: breathing non-labored REVIEW OF SYSTEMS Non-remarkable except for what is noted in HPI and/or Assessment/plan ASSESSMENT: Reviewed principles of energy metabolism, caloric intake and expenditure, and rationale for treatment program. Also reinforced need for reduced calorie, low fat diet and increased physical Activity. 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 Granda Weight and BMI today (01/10/25) = Weight and BMI previous visit dated: 11/29/2024 = 427 lb -continue Metformin; declines Topamax d/t side effects in the past. Wegovy and Zepbound not covered by insurance. Consider Phentermine or Wellbutrin if approved by her psychiatrist, or Naltrexone. -continue TLI (therapeutic lifestyle interventions) to include strength training; continue Reboot -labs done 01/20 Convo: -saw her PCP yesterday who confirmed her A1c as being high. PCP prescribed Trulicity which was covered by insurance, but wonderin (more content not included)... [facility] 01-06-2025 Note HNO ID: [id number] Author: DINAH PEREZ, PhD Service: ? Author Type: Psychologist Type: Progress Notes Filed: 01/09/2025 16:19 Note Text: [facility]ariat[facility] Behavioral Services Progress Note January 09, 2025 Patient cancelled the following Reboot visit via : Social eating AND social support. Session Attendance Tracking: Topic Date Attended Program Orientation 12/28/24 Anatomy/Vitamins Exploring your Relationship with Food The Benefits of Physical Activity Emotional Eating Protein and Fluids Cognitive Strategies and Body Image Healthful Meal Planning Post-Surgery Stimulus Control AND Mindful Eating Maintaining an Exercise Routine 01/02/25 Social Eating AND Social Support Did not attend Relapse Prevention Plan: Return to Re-Boot session in 1 week. Dinah Perez, Ph.D. Psychologist [facility] 01-06-2025 History of Present illness Narrative [facility] Bariatric Behavioral Services Progress Note January 09, 2025 Patient cancelled the following Reboot visit via MC: Social eating & social support. Session Attendance Tracking: Topic Date Attended Program Orientation 12/28/24 Anatomy/Vitamins Exploring your Relationship with Food The Benefits of Physical Activity Emotional Eating Protein and Fluids Cognitive Strategies and Body Image Healthful Meal Planning Post-Surgery Stimulus Control & Mindful Eating Maintaining an Exercise Routine 01/02/25 Social Eating & Social Support Did not attend Relapse Prevention Plan: Return to Re-Boot session in 1 week. Dinah Perez, Ph.D. Psychologist documented in this encounter [facility] 01-02-2025 Note HNO ID: [id number] Author: ESTELLA FREEMAN, PhD Service: ? Author Type: Psychologist Type: Progress Notes Filed: 01/03/2025 16:10 Note Text: Susi Ortiz [id number] January 02, 2025 [facility] M61 Re-Boot Group CPT: [id number] Virtual GROUP PSYCHOTHERAPY 3:00-4:15pm Re-Boot Program Session 10: Maintaining a Physical Activity Program Patients attended the Maintaining a Physical Activity Program Group as part of a 12-week multidisciplinary program for weight regain following bariatric surgery. Patients new to group provided verbal consent related to the use of virtual visits and were reminded of the limits of confidentiality. Details were previously sent by [employer]. Patients discussed previous week's goals and their success or challenges meeting their goals. Topics covered included the keys to maintaining an exercise program, definitions of an active lifestyle, personal reasons for physical activity, enjoyment, consistency, variety, goal setting, activity snacking, and self monitoring. The FITT principle was also discussed. Goals related to physical activity were set by each participant. Ms. Ortiz was a minimally active participant in the session. She did verbalize an understanding of the material presented. Patient does appear to be an appropriate group candidate. She has been keeping food diaries (several days). She noted she was a little low in protein intake but self-monitoring increased her awareness of portions and calories. She would like to continue self-monitoring her diet. Previous weeks goals: Track food intake 3x/week (partially met 2/3 days) Behavioral goal for the week: Track 3/7 days Try chair exercises Session Attendance Tracking: Topic Date Attended Program Orientation 12/28/24 Anatomy/Vitamins Exploring your Relationship with Food The Benefits of Physical Activity Emotional Eating Protein and Fluids Cognitive Strategies and Body Image Healthful Meal Planning Post-Surgery Stimulus Control AND Mindful Eating Maintaining an Exercise Routine 01/02/25 Social Eating AND Social Support Relapse Prevention Assessment: Eating disorder NOS Psychological Factors Affecting Class 3 Obesity Plan: Return to Re-Boot session in 1 week. Estella Freeman, PhD, RD, LD, [facility] ACS-CEP, Psychologist [facility] [place] 01-02-2025 History of Present illness Narrative [facility] Nutrition Therapy: Virtual Consult - Re-assessment I have communicated my name and active licensure. The patient s identity and physical location were verified at the time of this visit. Either the patient or their legal sales representative jewelry has been informed of the risks and benefits of -- and alternatives to -- treatment through a remote evaluation and consents to proceed with the evaluation remotely. Nutrition Diagnosis: Altered Gastrointestinal Tract Function, related to, S/P bariatric surgery, as evidenced by patient update and PSH and Overweight/obesity, related to, food/nutrition - related knowledge deficit, as evidenced by BMI above normative standard for age and gender RECOMMENDED MALNUTRITION DIAGNOSIS: NO MALNUTRITION IDENTIFIED NUTRITION CARE PLAN: Nutrition Intervention 01/02/2025: Modify type and amount of food and [...] 60 mg Iron (1x per day) AND 1541-5686 mg calcium citrate daily taken in divided [...] should last 30 minutes. 7. Aim for 1700 calories and 100 gm carbs per day - consider tracking once a week on Boracci arun - for recipes: https://bariatricThe [employer]/ba riatric-recipes/ https://www.bariatricfusion.com/ blogs/blog/tagged/bariatric-reci pes https://www.[employer].com/food- nutrition/u60098832/1-taolklc-tm ylft-allt-jqzr-recipes/ https://www.bariatricmealcoach.c om https://www.bariatriceating.com/ https://www.[employer] Technology[employer].org/c ookbook/ Nutrition Monitoring & Evaluation: 1-2 pounds weight loss per week Need for Follow up: 3 months, [phone] PROGRESS: Interval History: Patient presents for follow up MNT ~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 Since last assessment Patient reports recent weight recurrence likely secondary to recurrent steroid therapy. Currently being treated by Dr. Nieto with Metformin and reports no SE. Net weight gain 26 pounds (401 lbs initial) 0% TWL Pre-surgery weight: 388 pounds Ari: 368 pounds 35 pounds weight gain since last assessment (392 lbs) Diet recall indicates consistent meal pattern with no missed meals. Some inconsistent carb intake and insufficient protein intake, likely slowing desired weight loss. Following Phase 5 diet. 3069-7769 calories/day - insufficient 70-90 gm protein intake/day - insufficient 80-100 oz fluid intake/day - meeting needs Taking all vitamin/minerals. Labs reviewed, note elevated A1c Resting Metabolic Rate:2598 Energy needs for weight loss 8089-2505 (10-15 harpreet/kg current weight) Protein needs: 96-128 grams protein per day (1.5 - 2.0 g/kg IBW kg) Exercise - consistent and meets low end recommendations Nutrition Intervention 08/08/2024: Modify type and amount of food and [...] Vitamin/minerals: Take daily bariatric vitamins, including: - [employer]/LEIDA Bariatric multivitamin with 60 mg Iron (1x per day) AND 6249-9191 mg calcium citrate daily taken in divided [...] should last 30 minutes. 7. 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 Resting Metabolic Rate: 2598 Malnutrition Screening Significant unintentional weight loss? No Eating less than 75% of usual intake for more than 2 weeks? No Potential Signs of Inflammation: no identifiable sources Nutritional status: Food Insecurity: No Food Insecurity (01/02/2025) Hunger Vital Sign Worried About Running Out of Food in the Last Year: Never true Ran Out of Food in the Last Year: Never true Education Materials Provided: None this visit READINESS TO LEARN Cognitive ability: Alert and oriented Motivation to learn: Interested Family support: Unable to assess - Family not present Instruction provided to: Patient Patient learns best by: Multiple Methods Factors affecting learning: None Physical limitations affecting learning: None Likelihood of Adherence: Moderate Referred by: Alicia BEVERLY Billing Type: Re-assess 2 units Total Time (mins): 21 SIGNATURE: Karon Monsivais RD PATIENT NAME: Susi Naqvi Ortiz DATE: January 02, 2025 TIME: 7:44 AM PAGER: N/A documented in this encounter [facility] 01-02-2025 Note HNO ID: [id number] Author: KARON MONSIVAIS RD Service: ? Author Type: Registered Dietitian Type: Progress Notes Filed: 01/02/2025 08:22 Note Text: [facility] Nutrition Therapy: Virtual Consult - Re-assessment I have communicated my name and active licensure. The patient?s identity and physical location were verified at the time of this visit. Either the patient or their legal sales representative jewelry has been informed of the risks and benefits of -- and alternatives to -- treatment through a remote evaluation and consents to proceed with the evaluation remotely. Nutrition Diagnosis: Altered Gastrointestinal Tract Function, related to, S/P bariatric surgery, as evidenced by patient update and PSH and Overweight/obesity, related to, food/nutrition - related knowledge deficit, as evidenced by BMI above normative standard for age and gender RECOMMENDED MALNUTRITION DIAGNOSIS: NO MALNUTRITION IDENTIFIED NUTRITION CARE PLAN: Nutrition Intervention 01/02/2025: Modify type and amount of food and [...] 60 mg Iron (1x per day) AND 5071-6764 mg calcium citrate daily taken in divided [...] should last 30 minutes. 7. Aim for 1700 calories and 100 gm carbs per day - consider tracking once a week on Boracci arun - for recipes: https://[employer]/ba Truecallertric-recipes/ https://www.bariatricThisClicks.Simpli.fi/ blogs/blog/tagged/bariatric-reci pes https://www.[employer].com/food- nutrition/r50412083/4-yxicynl-uj noni-opbb-ayte-r ecipes/ https://www.bariatricmealcoach.c om https://www.bariatriceating.com/ https://www.treofoundation.org/c ookbook/ Nutrition Monitoring AND Evaluation: 1-2 pounds weight loss per week Need for Follow up: 3 months, [phone] PROGRESS: Interval History: Patient presents for follow up MNT ~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 Since last assessment Patient reports recent weight recurrence likely secondary to recurrent steroid therapy. Currently being treated by Dr. Nieto with Metformin and reports no SE. Net weight gain 26 pounds (401 lbs initial) 0% TWL Pre-surgery weight: 388 pounds Ari: 368 pounds 35 pounds weight gain since last assessment (392 lbs) Diet recall indicates consistent meal pattern with no missed meals. Some inconsistent carb intake and insufficient protein intake, likely slowing desired weight loss. Following Phase 5 diet. 1029-4128 calories/day - insufficient 70-90 gm protein intake/day - insufficient 80-100 oz fluid intake/day - meeting needs Taking all vitamin/minerals. Labs reviewed, note elevated A1c Resting Metabolic Rate:2598 Energy needs for weight loss 1806-0803 (10-15 harpreet/kg current weight) Protein needs: 96-128 grams protein per day (1.5 - 2.0 g/kg IBW kg) Exercise - consistent and meets low end recommendations Nutrition Intervention 08/08/2024: Modify type and amount of food and [...] 60 mg Iron (1x per day) AND 7023-1571 mg calcium citrate daily taken in divided [...] should last 30 minutes. 7. Aim for 1700 calories and 75-100 gm carbs per day Actions to implement interventions: Diet History: Breakfast - eggs with cheese and ham and toast Snack - none Lunch - ham and cheese roll up (2-3) with pineapple Snack - yogurt Dinner - chicken with green beans Snack - none Beverages - water (80 oz), SF juice (8-16 oz) Alcohol - none Vitamins/Sup (more content not included)... [facility] [place] 12-26-2024 Note HNO ID: [id number] Author: DINAH PEREZ, PhD Service: ? Author Type: Psychologist Type: Progress Notes Filed: 12/28/2024 16:03 Note Text: Susi Ortiz [id number] December 28, 2024 [facility]ariatric [facility] Metabolic [facility] M61 Re-Boot Group CPT: [id number] Virtual GROUP PSYCHOTHERAPY 3:00-3:53pm Re-Boot Program Program Orientation Patients attended the first session of a 12-week multidisciplinary program for weight regain following bariatric surgery. Patients provided verbal consent related to the use of virtual visits and were reminded of the limits of confidentiality. Details were previously sent by [employer]. Orientated patients to the format of sessions and reviewed program expectations. Patients introduced themselves and discussed contributors to weight regain/non-response to bariatric surgery. Introduced concepts of mindful/intuitive eating. Discussed importance of self-monitoring and reviewed how to keep accurate self-monitoring records. Patients set SMART goals for the upcoming week. Ms. Ortiz was an active participant in the session. She did verbalize an understanding of the material presented. Patient does appear to be an appropriate group candidate. She underwent the DS in July 2023 at [facility] (HW: 388 lb, CW: 427 lb), after previously undergoing the LSG in 2017. She is participating in UGAME to help her get back on track, after life happened and she began skipping meals and snacking more in response to stress. Additionally, back pain prevents her from engaging in exercise. She tried food diaries in the past and found them to help her be more mindful, but she would forget to do them consistently. Behavioral goal for the week: Track food intake 3x/week Session Attendance Tracking: Topic Date Attended Program Orientation 12/28/24 Anatomy/Vitamins Exploring your Relationship with Food The Benefits of Physical Activity Emotional Eating Protein and Fluids Cognitive Strategies and Body Image Healthful Meal Planning Post-Surgery Stimulus Control AND Mindful Eating Maintaining an Exercise Routine Social Eating AND Social Support Relapse Prevention Objective: Patient Data Generalized Anxiety Disorder Scale (KHALIF-7) 04/23/2023 08/26/2023 12/21/2024 KHALIF - 7 SCORES Score 0 0 8 (0-4) minimal anxiety, (5-9) mild anxiety, (10-14) moderate anxiety, (15-21) severe anxiety Patient Health Questionnaire (PHQ-9) 04/23/2023 08/26/2023 12/21/2024 PHQ-9 Score 6 4 15 (0-4) minimal depression, (5-9) mild depression, (10-14) moderate depression, (15-19) moderately severe depression, (20-27) severe depression PROMIS Global Health 07/17/2023 08/22/2024 12/21/2024 PROMIS Global Health - (T-Scores - the mean of general population = 50. Five points is a clinically meaningful difference.) Physical T-Score 37.4 39.8 26.7 Mental T-Score 45.8 50.8 33.8 08/19/2021 12/21/2024 Eating Habits Checklist Body Image 3 - I feel very self-conscious about my weight and frequently, I feel intense shame and disgust for myself. I try to avoid social contacts because of my self-consciousness. 3 - I feel very self-conscious about my weight and frequently, I feel intense shame and disgust for myself. I try to avoid social contacts because of my self-consciousness. Eating Speed 0 - I don't have any difficulty eating slowly in the proper manner. 2 - At times, I tend to eat quickly and then, I feel uncomfortably full afterwards. Eating Urges 0 - I feel capable to control my eating urges when I want to. 1 - I feel like I have failed to control my eating more than the average person. Bored Eating 0 - I sometimes eat when I'm bored, but often I'm able to get busy and get my mind off food. 0 - I have a regular habit of eating when I'm bored, but occasionally, I can use some other activity to get my mind off eating. Hungry Feeling 0 - I'm usually physically hungry when I eat something. 1 - Occasionally, I eat something on impulse even though I really am not hungry. Overeating Guilt 1 - After I overeat, occasionally I feel guilt or self-hate. 1 - After I overeat, occasionally I feel guilt or self-hate. Dieting 0 - I don't lose total control of my eating when dieting even after periods when I overeat. 2 - Sometimes when I eat a forbidden food on a diet, I feel like I blew it and eat even more. Amount of Food 0 - I rarely eat so much food that I feel uncomfortably stuffed afterwards. 1 - Usually about once a month, I eat such a quantity of food, I end up feeling very stuffed. Caloric Intake 0 - My level of calorie intake does not go up very high or go down very low on a regular basis. 2 - I have a regular habit of overeating during the night. It seems that my routine is not to be hungry in the morning but overeat in the evening. Urge to East 0 - I usually am able to stop eating when I want to. I know when enough is enough . 1 - Ever (more content not included)... [facility] [place] 12-26-2024 History of Present illness Narrative Images from the original note were not included. Susi Ortiz [id number] December 28, 2024 [facility] Bariatric [facility] Metabolic [facility] M61 Re-Boot Group CPT: [id number] Virtual GROUP PSYCHOTHERAPY 3:00-3:53pm Re-Boot Program Program Orientation Patients attended the first session of a 12-week multidisciplinary program for weight regain following bariatric surgery. Patients provided verbal consent related to the use of virtual visits and were reminded of the limits of confidentiality. Details were previously sent by [employer]. Orientated patients to the format of sessions and reviewed program expectations. Patients introduced themselves and discussed contributors to weight regain/non-response to bariatric surgery. Introduced concepts of mindful/intuitive eating. Discussed importance of self-monitoring and reviewed how to keep accurate self-monitoring records. Patients set SMART goals for the upcoming week. Ms. Ortiz was an active participant in the session. She did verbalize an understanding of the material presented. Patient does appear to be an appropriate group candidate. She underwent the DS in July 2023 at [facility] (HW: 388 lb, CW: 427 lb), after previously undergoing the LSG in 2016. She is participating in UGAME to help her get back on track, after life happened and she began skipping meals and snacking more in response to stress. Additionally, back pain prevents her from engaging in exercise. She tried food diaries in the past and found them to help her be more mindful, but she would forget to do them consistently. Behavioral goal for the week: Track food intake 3x/week Session Attendance Tracking: Topic Date Attended Program Orientation 12/28/24 Anatomy/Vitamins Exploring your Relationship with Food The Benefits of Physical Activity Emotional Eating Protein and Fluids Cognitive Strategies and Body Image Healthful Meal Planning Post-Surgery Stimulus Control & Mindful Eating Maintaining an Exercise Routine Social Eating & Social Support Relapse Prevention Objective: Patient Data Generalized Anxiety Disorder Scale (KHALIF-7) 04/23/2023 08/26/2023 12/21/2024 KHALIF - 7 SCORES Score 0 0 8 (0-4) minimal anxiety, (5-9) mild anxiety, (10-14) moderate anxiety, (15-21) severe anxiety Patient Health Questionnaire (PHQ-9) 04/23/2023 08/26/2023 12/21/2024 PHQ-9 Score 6 4 15 (0-4) minimal depression, (5-9) mild depression, (10-14) moderate depression, (15-19) moderately severe depression, (20-27) severe depression PROMIS Global Health 07/17/2023 08/22/2024 12/21/2024 PROMIS Global Health - (T-Scores - the mean of general population = 50. Five points is a clinically meaningful difference.) Physical T-Score 37.4 39.8 26.7 Mental T-Score 45.8 50.8 33.8 08/19/2021 12/21/2024 Eating Habits Checklist Body Image 3 - I feel very self-conscious about my weight and frequently, I feel intense shame and disgust for myself. I try to avoid social contacts because of my self-consciousness. 3 - I feel very self-conscious about my weight and frequently, I feel intense shame and disgust for myself. I try to avoid social contacts because of my self-consciousness. Eating Speed 0 - I don't have any difficulty eating slowly in the proper manner. 2 - At times, I tend to eat quickly and then, I feel uncomfortably full afterwards. Eating Urges 0 - I feel capable to control my eating urges when I want to. 1 - I feel like I have failed to control my eating more than the average person. Bored Eating 0 - I sometimes eat when I'm bored, but often I'm able to get busy and get my mind off food. 0 - I have a regular habit of eating when I'm bored, but occasionally, I can use some other activity to get my mind off eating. Hungry Feeling 0 - I'm usually physically hungry when I eat something. 1 - Occasionally, I eat something on impulse even though I really am not hungry. Overeating Guilt 1 - After I overeat, occasionally I feel guilt or self-hate. 1 - After I overeat, occasionally I feel guilt or self-hate. Dieting 0 - I don't lose total control of my eating when dieting even after periods when I overeat. 2 - Sometimes when I eat a forbidden food on a diet, I feel like I blew it and eat even more. Amount of Food 0 - I rarely eat so much food that I feel uncomfortably stuffed afterwards. 1 - Usually about once a month, I eat such a quantity of food, I end up feeling very stuffed. Caloric Intake 0 - My level of calorie intake does not go up very high or go down very low on a regular basis. 2 - I have a regular habit of overeating during the night. It seems that my routine is not to be hungry in the morning but overeat in the evening. Urge to East 0 - I usually am able to stop eating when I want to. I know when enough is enough . 1 - Every so often, I experience a compulsion to eat which I can't seem to control. Ability to Stop Eating 0 - I don't have any problem stopping eating when I feel full. 1 - I usually can stop eating when I feel full but occasionally overeat leaving me feeling uncomfortably stuffed after I eat a meal. Eating with Others 0 - I seem to eat just as much when I'm with others (family, social gatherings) as when I'm by myself. 1 - Sometimes, when I'm with other person, I don't eat as much as I want to eat because I'm self-conscious about my eating. Meals per Day 0 - I eat three meals a day with only an occasional between meal snack. 0 - I eat 3 meals a day, but I also normally snack between meals. Unwanted Urges 1 - At least some of the time, I feel my thoughts are pre-occupied with trying to control my eating urges. 1 - At least some of the time, I feel my thoughts are pre-occupied with trying to control my eating urges. Thinking about Food 1 - I have strong cravings for food but they last only for brief periods of time. 1 - I have strong cravings for food but they last only for brief periods of time. Physically Hungry 0 - I usually know whether or not I'm physically hungry. I take the right portion of food to satisfy me. 1 - Occasionally, I feel uncertain about knowing whether or not I'm physically hungry. At these times it's hard to know how much food I should take to satisfy me. Total Score 6 19 Patient-reported <18 = minimal binge eating, 18-26 = moderate binge eating, >27 = severe binge eating AUDIT-C Score: 0 (12/21/2024 1:12 PM) In men, a score of 4 or more is considered positive; in women, a score of 3 or more is considered positive. Generally, the higher the AUDIT-C score, the more likely it is that the patient's drinking is affecting his/her health and safety Assessment: Eating disorder NOS Psychological Factors Affecting Class 3 Obesity Plan: Return to Re-Boot session in 1 week. Dinah Perez, Ph.D. Psychologist documented in this encounter [facility] 11-29-2024 History of Present illness Narrative I have communicated my name and active licensure. The patient's identity and physical location were verified at the time of this visit. Either the patient or their legal sales representative jewelry has been informed of the risks and benefits of -- and alternatives to -- treatment through a remote evaluation and consents to proceed with the evaluation remotely. CC/HPI: 39 year old lady presents for follow up evaluation for medical weight loss. Intervention: Metformin as an adjunct to TLI (therapeutic lifestyle interventions). Has had side effects with Topamax in the past, and Wegovy and Zepbound are not covered by her insurance. General Health Updates: Patient specifies the following items as new or significant updates in general health since last appointment here: Diet: has not seen Social Group Worker recently -B: eggs-scrambled eggs with some cheese -yogurt for a snack -L: can't remember- -snack: couple of deviled eggs -D: chicken-baked with green beans and a little mashed potatoes -snacks -beverages-does a good job with water most days Physical activity: has been doing chair exercises-suggested looking into strength training as tolerated a couple of times per week; patient states she does use resistance bands OTHER: -10/05/24 OV BMI/Gorty MEDS: See Epic CARDIAC: -Procedure Date : Mar 10 2023 EKG Diagnosis: NORMAL SINUS RHYTHM NORMAL ECG PMH: Women: Control method: PSHX: PAST MEDICAL HISTORY Diagnosis Date Bipolar disorder (HCC) DDD (degenerative disc disease), lumbar Depression Eczema GERD (gastroesophageal reflux disease) Migraine tirzepatide, weight loss (ZEPBOUND) 2.5 mg/0.5 mL pen injector Inject 2.5 mg subcutaneously one time a week. Severe TONEY-AHI >30 tirzepatide (MOUNJARO) 2.5 mg/0.5 mL pen injector Inject 2.5 mg subcutaneously one time a week. metFORMIN ER (GLUCOPHAGE XR) 500 mg 24 [...] Take 60 mg by mouth once daily. ALLERGIES Allergen Reactions Adhes. Yftx-Skli-Ng* Rash Adhesive Tape-Silic* Rash Augmentin [Amoxicil* Diarrhea Keflex [Cephalexin] Rash, Itching Penicillins Hives Ultram [Tramadol Hc* Itching PHYSICAL EXAMINATION: Wt (!) 193.7 kg (427 lb) LMP 07/08/2023 (Approximate) BMI 73.29 kg/m General: alert and appropriate, in no distress, well-hydrated, well nourished, happy, smiling, interactive, and pleasant lady Skin: no rash noted Head: normocephalic, no abnormality or lesion noted Eyes: no injection Respiratory: breathing non-labored REVIEW OF SYSTEMS Non-remarkable except for what is noted in HPI and/or Assessment/plan ASSESSMENT: Reviewed principles of energy metabolism, caloric intake and expenditure, and rationale for treatment program. Also reinforced need for reduced calorie, low fat diet and increased physical Activity. 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 Granda Weight and BMI today (11/29/24) = Weight and BMI previous visit dated: 10/05/2024 = 427 lb -continue Metformin; Declines Topamax d/t side effects in the past. Wegovy and Zepbound not covered by insurance. Consider Trulicity, Naltrexone or Wellbutrin or Zepbound self-pay or phentermine (Phentermine if approved by her Psychiatrist, whom she sees next month), or possibly Zonegran - -continue TLI (therapeutic lifestyle interventions), including physical activity as yiberwqho-ywpv-antbhrqn of low impact exercise to include strength training -had recent cmp, cbc; check remaining extended labs, including A1c -will send name for Reboot/y; will refer for individual follow up appointments with BMI RD and Psychology (has seen Karon Monsivais and Ghazala Florez in the past-messages sent to scheduling) -suggested she ask her Psychiatrist re: beginning Adipex-she has an appt next month -check labs as per orders (had recent cbc, cmp); consider GLP1, depending on A1c results. 2)TONEY-consider follow up with Sleep medicine Amina Nieto MD I spent a total of 30 minutes on the date of the service which included preparing to see the patient, cvqa-of-prow patient care, obtaining and/or reviewing separately obtained history, counseling and educating the patient/family/caregiver, ordering medications, tests, or procedures, and care coordination (not separately reported). documented in this encounter [facility] 11-29-2024 Note HNO ID: [id number] Author: AMINA NIETO MD Service: ? Author Type: Physician Type: Progress Notes Filed: 11/30/2024 09:29 Note Text: I have communicated my name and active licensure. The patient's identity and physical location were verified at the time of this visit. Either the patient or their legal sales representative jewelry has been informed of the risks and benefits of -- and alternatives to -- treatment through a remote evaluation and consents to proceed with the evaluation remotely. CC/HPI: 39 year old lady presents for follow up evaluation for medical weight loss. Intervention: Metformin as an adjunct to TLI (therapeutic lifestyle interventions). Has had side effects with Topamax in the past, and Wegovy and Zepbound are not covered by her insurance. General Health Updates: Patient specifies the following items as new or significant updates in general health since last appointment here: Diet: has not seen Social Group Worker recently -B: eggs-scrambled eggs with some cheese -yogurt for a snack -L: can't remember- -snack: couple of deviled eggs -D: chicken-baked with green beans and a little mashed potatoes -snacks -beverages-does a good job with water most days Physical activity: has been doing chair exercises-suggested looking into strength training as tolerated a couple of times per week; patient states she does use resistance bands OTHER: -10/05/24 OV BMI/Nadege MEDS: See Epic CARDIAC: -Procedure Date : Mar 10 2023 EKG Diagnosis: NORMAL SINUS RHYTHM NORMAL ECG PMH: Women: Control method: PSHX: PAST MEDICAL HISTORY Diagnosis Date Bipolar disorder (HCC) DDD (degenerative disc disease), lumbar Depression Eczema GERD (gastroesophageal reflux disease) Migraine tirzepatide, weight loss (ZEPBOUND) 2.5 mg/0.5 mL pen injector Inject 2.5 mg subcutaneously one time a week. Severe TONEY-AHI >30 tirzepatide (MOUNJARO) 2.5 mg/0.5 mL pen injector Inject 2.5 mg subcutaneously one time a week. metFORMIN ER (GLUCOPHAGE XR) 500 mg 24 [...] Take 60 mg by mouth once daily. ALLERGIES Allergen Reactions Adhes. Hwbz-Jawy-Dv* Rash Adhesive Tape-Silic* Rash Augmentin [Amoxicil* Diarrhea Keflex [Cephalexin] Rash, Itching Penicillins Hives Ultram [Tramadol Hc* Itching PHYSICAL EXAMINATION: Wt (!) 193.7 kg (427 lb) LMP 07/08/2023 (Approximate) BMI 73.29 kg/m? General: alert and appropriate, in no distress, well-hydrated, well nourished, happy, smiling, interactive, and pleasant lady Skin: no rash noted Head: normocephalic, no abnormality or lesion noted Eyes: no injection Respiratory: breathing non-labored REVIEW OF SYSTEMS Non-remarkable except for what is noted in HPI and/or Assessment/plan ASSESSMENT: Reviewed principles of energy metabolism, caloric intake and expenditure, and rationale for treatment program. Also reinforced need for reduced calorie, low fat diet and increased physical Activity. 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 Granda Weight and BMI today (11/29/24) = Weight and BMI previous visit dated: 10/05/2024 = 427 lb -continue Metformin; Declines Topamax d/t side effects in the past. Wegovy and Zepbound not covered by insurance. Consider Trulicity, Naltrexone or Wellbutrin or Zepbound self-pay or phentermine (Phentermine if approved by her Psychiatrist, whom she sees next month), or possibly Zonegran - -continue TLI (therapeutic lifestyle interventions), including physical activity as prljijqoy-evol-jldbpnyi of low impact exer (more content not included)... [facility] [place] 10-05-2024 History of Present illness Narrative I have communicated my name and active licensure. The patient's identity and physical location were verified at the time of this visit. Either the patient or their legal sales representative jewelry has been informed of the risks and benefits of -- and alternatives to -- treatment through a remote evaluation and consents to proceed with the evaluation remotely. CC/HPI: 39 year old lady presents for follow up evaluation for medical weight loss. Intervention: Metformin as an adjunct to TLI (therapeutic lifestyle interventions); declines Topamax due to previous side effects. Has taken Phentermine before with benefit. General Health Updates: Patient specifies the following items as new or significant updates in general health since last appointment here: -has been on steroids on and off since May which has resulted in weight gain (had bronchitis, norovirus various conditions etc for which she has been prescribed numerous courses of steroids). Diet: atypical yesterday-was at the hospital with her friend -B: sausage and an egg -L: chicken -D: a couple of taquitos -snacks -beverages-most days drinks enough water Physical activity: walks as much as she can-limited by her miqa-avfu-dnxado workouts-chair exercises; recommended to include strength training a couple of times per week as tolerated OTHER: -09/29/24 OV PCP -08/08/24 OV BMI/Gorty MEDS: See [facility] CARDIAC: -Procedure Date : Mar 10 2023 EKG Diagnosis: NORMAL SINUS RHYTHM NORMAL ECG PMH: Women: Control method: PSHX: PAST MEDICAL HISTORY Diagnosis Date Bipolar disorder (HCC) DDD (degenerative disc disease), lumbar Depression Eczema GERD (gastroesophageal reflux disease) Migraine semaglutide, weight loss, (WEGOVY) 0.25 mg/0.5 mL pen injector Inject 0.5 mL subcutaneously one time a week. tirzepatide (MOUNJARO) 2.5 mg/0.5 mL pen injector Inject 2.5 mg subcutaneously one time a week. metFORMIN ER (GLUCOPHAGE XR) 500 mg 24 [...] Take 60 mg by mouth once daily. ALLERGIES Allergen Reactions Adhes. Pdcr-Kqev-Xa* Rash Adhesive Tape-Silic* Rash Augmentin [Amoxicil* Diarrhea Keflex [Cephalexin] Rash, Itching Penicillins Hives Ultram [Tramadol Hc* Itching PHYSICAL EXAMINATION: Wt (!) 193.7 kg (427 lb) LMP 07/08/2023 (Approximate) BMI 73.29 kg/m General: alert and appropriate, in no distress, well-hydrated, well nourished, happy, smiling, interactive, and pleasant lady Skin: no rash noted Head: normocephalic, no abnormality or lesion noted Eyes: no injection and visual acuity is grossly normal Respiratory: breathing non-labored REVIEW OF SYSTEMS Non-remarkable except for what is noted in HPI and/or Assessment/plan ASSESSMENT: Reviewed principles of energy metabolism, caloric intake and expenditure, and rationale for treatment program. Also reinforced need for reduced calorie, low fat diet and increased physical Activity. 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 Granda Weight and BMI today (10/03/24) = Weight and BMI previous visit dated: 08/08/24 = 392 lb -continue Metformin-Mounjaro and Wegovy not covered. Declines Topamax. Consider Kalpesh, Jhonypbound (has h/o TONEY) Phentermine (has taken before and tolerated well), also Contrave -continue TLI (therapeutic lifestyle interventions), including follow up with Bariatric RD and physical activity as tolerated to include strength training -encouraged to use cpap-consider Zepbound, given severe TONEY on prior report. Some common s/e/r/b discussed and patient is interested in a trial. Back up plan: Kalpesh Barr 2)TONEY-consider follow up with Sleep medicine Amina Nieto MD I spent a total of 30 minutes on the date of the service which included preparing to see the patient, zlcn-hs-lnvu patient care, obtaining and/or reviewing separately obtained history, counseling and educating the patient/family/caregiver, ordering medications, tests, or procedures, and care coordination (not separately reported). documented in this encounter [facility] 10-05-2024 Note HNO ID: [id number] Author: AMINA NIETO MD Service: ? Author Type: Physician Type: Progress Notes Filed: 10/06/2024 13:25 Note Text: I have communicated my name and active licensure. The patient's identity and physical location were verified at the time of this visit. Either the patient or their legal sales representative jewelry has been informed of the risks and benefits of -- and alternatives to -- treatment through a remote evaluation and consents to proceed with the evaluation remotely. CC/HPI: 39 year old lady presents for follow up evaluation for medical weight loss. Intervention: Metformin as an adjunct to TLI (therapeutic lifestyle interventions); declines Topamax due to previous side effects. Has taken Phentermine before with benefit. General Health Updates: Patient specifies the following items as new or significant updates in general health since last appointment here: -has been on steroids on and off since May which has resulted in weight gain (had bronchitis, norovirus various conditions etc for which she has been prescribed numerous courses of steroids). Diet: atypical yesterday-was at the hospital with her friend -B: sausage and an egg -L: chicken -D: a couple of taquitos -snacks -beverages-most days drinks enough water Physical activity: walks as much as she can-limited by her sffj-hbqa-fbkvar workouts-chair exercises; recommended to include strength training a couple of times per week as tolerated OTHER: -09/29/24 OV PCP -08/08/24 OV BMI/Nadege MEDS: See Epic CARDIAC: -Procedure Date : Mar 10 2023 EKG Diagnosis: NORMAL SINUS RHYTHM NORMAL ECG PMH: Women: Control method: PSHX: PAST MEDICAL HISTORY Diagnosis Date Bipolar disorder (HCC) DDD (degenerative disc disease), lumbar Depression Eczema GERD (gastroesophageal reflux disease) Migraine semaglutide, weight loss, (WEGOVY) 0.25 mg/0.5 mL pen injector Inject 0.5 mL subcutaneously one time a week. tirzepatide (MOUNJARO) 2.5 mg/0.5 mL pen injector Inject 2.5 mg subcutaneously one time a week. metFORMIN ER (GLUCOPHAGE XR) 500 mg 24 [...] Take 60 mg by mouth once daily. ALLERGIES Allergen Reactions Adhes. Dyat-Nvqb-No* Rash Adhesive Tape-Silic* Rash Augmentin [Amoxicil* Diarrhea Keflex [Cephalexin] Rash, Itching Penicillins Hives Ultram [Tramadol Hc* Itching PHYSICAL EXAMINATION: Wt (!) 193.7 kg (427 lb) LMP 07/08/2023 (Approximate) BMI 73.29 kg/m? General: alert and appropriate, in no distress, well-hydrated, well nourished, happy, smiling, interactive, and pleasant lady Skin: no rash noted Head: normocephalic, no abnormality or lesion noted Eyes: no injection and visual acuity is grossly normal Respiratory: breathing non-labored REVIEW OF SYSTEMS Non-remarkable except for what is noted in HPI and/or Assessment/plan ASSESSMENT: Reviewed principles of energy metabolism, caloric intake and expenditure, and rationale for treatment program. Also reinforced need for reduced calorie, low fat diet and increased physical Activity. 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 Granda Weight and BMI today (10/03/24) = Weight and BMI previous visit dated: 08/08/24 = 392 lb -continue Metformin-Mounjaro and Wegovy not covered. Declines Topamax. Consider Trulicity, Zepbound (has h/o TONEY) Phentermine (has taken before and tolerated well), also Contrave -continue TLI (therapeutic lifestyle interventions), including follow up with Bariatric RD and physical (more content not included)... [facility] [place] 09-14-2024 History of Present illness Narrative Images from the original note were not included. Subjective Susi Ortiz is a 39 y.o. year old female Chief Complaint Patient presents with Migraine Past Medical History: Diagnosis Date Anxiety Bipolar depression (CMS/HCC) Bursitis of shoulder Chronic back pain (herniated disc) CTS (carpal tunnel syndrome) Depression (CMS/HCC) Eczema Fracture of wrist GERD (gastroesophageal reflux disease) Hypertension (CMS/HCC) Lumbosacral disc disease Migraines (CMS/HCC) Obesity Pituitary tumor (3 mm microadenoma) RLS (restless legs syndrome) Seborrheic dermatitis Sleep apnea Past Surgical History: Procedure Laterality Date BACK SURGERY 2011, 2013 BARIATRIC SURGERY gastric sleeve BARIATRIC SURGERY 08/04/2023 duodenal switch CARPAL TUNNEL RELEASE 2008, 2009 CARPAL TUNNEL RELEASE Left CARPAL TUNNEL RELEASE Right CHOLECYSTECTOMY FL GUIDED ASPIRATION OF ABSCESS, HEMATOMA, CYST 09/02/2024 FL GUIDED ASPIRATION OF ABSCESS, HEMATOMA, CYST 09/02/2024 GALL BLADDER 2008 LAPAROSCOPY DIAGNOSTIC / BIOPSY / ASPIRATION / LYSIS 01/30/2020 LUMBAR DISCECTOMY OVARIAN CYST REMOVAL Right SPLENECTOMY, TOTAL TONSILLECTOMY ULNAR NERVE REPAIR Left 11/04/2023 Dr. Jefferson/ ulnar nerve decompression ULNAR NERVE TRANSPOSITION Right 12/02/2023 Dr. Jefferson Family History Problem Relation Name Age of Onset Thyroid disease Mother Lymphoma Father Barton Hypertension Father Barton Diabetes Father Barton Cancer Father Barton Social History Tobacco Use Smoking status: Former Current packs/day: 0.00 Average packs/day: 0.5 packs/day for 10.0 years (5.0 ttl pk-yrs) Types: Cigarettes Start date: 06/29/2003 Quit date: 06/29/2013 Years since quittin.2 Smokeless tobacco: Never Substance Use Topics Alcohol use: Not Currently Comment: caffeine: 2-3 cups per day Medication Documentation Review Audit Reviewed by MICHELLE Garg (Physician Cartridge Belt Puncher) on 09/14/24 at 1439 Medication Order Taking? Sig Documenting Provider Last Dose Status ARIPiprazole (Abilify) 15 MG tablet [id number] Take 15 mg by mouth at bedtime Bushra Nevarez NP Active benzonatate (Tessalon) 200 MG capsule [id number] Yes Take 200 mg by mouth 3 (three) times a day as needed MICHELLE Garg Active biotin 10 MG tablet [id number] Take 10 mg by mouth Patient not taking: Reported on 09/14/2024 Piedad Freeman NP Active busPIRone (Buspar) 30 MG tablet [id number] Take 15 mg by mouth Daily Bushra Nevarez NP Active calcium carbonate (Os-Harpreet) 1250 (500 Ca) MG tablet [id number] Take 1,250 mg by mouth in the morning and 1,250 mg before bedtime. Piedad Freeman NP Active calcium citrate 250 MG tablet [id number] Take 500 mg by mouth Daily Patient not taking: Reported on 09/14/2024 Jamie Harley DO Active cetirizine (ZyrTEC) 10 MG tablet [id number] Take 10 mg by mouth Daily Jamie Harley DO Active cholecalciferol (Vitamin D-3) 1.25 MG (51501 UT) capsule [id number] Patient not taking: Reported on 09/14/2024 Jamie Harley DO Active diclofenac (Voltaren) 75 MG EC tablet [id number] Yes Take 75 mg by mouth 2 (two) times a day as needed MICHELLE Garg Active DULoxetine (Cymbalta) [address] capsule [id number] Take 60 mg by mouth Daily Jamie Harley DO Active eletriptan (Relpax) 20 MG tablet [id number] Take 20 mg by mouth 1 (one) time if needed for migraine May repeat in 2 hours if unresolved. Do not exceed 80 mg in 24 hours. Max 3 days a week Patient not taking: Reported on 09/14/2024 Piedad Freeman NP Active esomeprazole (NexIUM) [address] capsule [id number] 1 capsule 1 (one) time each day at the same time Patient not taking: Reported on 09/14/2024 Jamie Harley DO Active famotidine (Pepcid) 20 MG tablet [id number] TAKE 1 TABLET BY MOUTH AT BEDTIME ONCE DAILY NEEDED Bushra Nevarez NP Active ferrous sulfate 325 (65 Fe) MG tablet [id number] Take 325 mg by mouth in the morning. Patient not taking: Reported on 09/14/2024 Bushra Nevarez NP Active hydroCHLOROthiazide (HYDRODiuril) 12.5 MG tablet [id number] TAKE 1 TABLET BY MOUTH IN THE MORNING EVERY DAY Otilio Jefferson DO Active HYDROcodone-acetaminophen (Olney) 5-325 MG tablet [id number] Yes TAKE 1 TABLET BY MOUTH EVERY 6 HOURS NEEDED FOR PAIN FOR 5 DAYS MICHELLE Garg Active hydrOXYzine pamoate (Vistaril) 50 MG capsule [id number] TAKE 1 CAPSULE BY MOUTH AT BEDTIME NEEDED oral at bed time as needed for 90 days Bushra Nevarez NP Active lamoTRIgine (LaMICtal) 100 MG tablet [id number] Take 1 tablet by mouth in the morning. Otilio Jefferson DO Active Levonorgestrel (Mirena, 52 MG,) 20 MCG/DAY intrauterine device [id number] 1 each by Intrauterine route Bushra Nevarez NP Active Levonorgestrel intrauterine device [id number] Jamie Harley DO Active loratadine (Claritin) 10 MG tablet [id number] TAKE 1 TABLET BY MOUTH DAILY Oral for 30 Patient not taking: Reported on 09/14/2024 Otilio Jefferson DO Active LORazepam (Ativan) 0.5 MG tablet [id number] Take 1 tablet (0.5 mg) by mouth See administration instructions for 1 dose 1 by mouth 1 hour prior to MRI Patient not taking: Reported on 09/14/2024 Bushra Nevarez NP Active metFORMIN XR (Glucophage-XR) 500 MG 24 hr tablet [id number] Take 500 mg by mouth in the evening. Take with meals Bushra Nevarez NP Active methocarbamol (Robaxin) 750 MG tablet [id number] Yes Take 750 mg by mouth in the morning and 750 mg at noon and 750 mg in the evening and 750 mg before bedtime. MICHELLE Garg Active montelukast (Singulair) 10 MG tablet [id number] 1 (one) time each day at the same time Bushra Nevarez NP Active Multiple Vitamin (Multi Vitamin) tablet [id number] 1 (one) time each day at the same time Bushra Nevarez NP Active Multiple Vitamins-Minerals (Bariatric Multivitamins/Iron) capsule [id number] Take by mouth Patient not taking: Reported on 09/14/2024 Piedad Freeman NP Active omeprazole (PriLOSEC) [address] capsule [id number] 1 (one) time each day at the same time Bushra Nevarez NP Active ondansetron (Zofran) 4 MG tablet [id number] Take 1 tablet (4 mg) by mouth every 6 (six) hours if needed for nausea or vomiting for up to 30 doses Take 1 tablet by mouth every 6 hours as needed for nausea. Jamie Harley DO Active ondansetron ODT (Zofran-ODT) 4 MG disintegrating tablet [id number] Patient not taking: Reported on 09/14/2024 Otilio Jefferson DO Active OXcarbazepine (Trileptal) 300 MG tablet [id number] TAKE 1 & 1/2 (ONE AND ONE-HALF) TABLETS BY MOUTH AT BEDTIME Patient not taking: Reported on 09/14/2024 MICHELLE Garg Active prazosin (Minipress) 2 MG capsule [id number] 1 (one) time each day at the same time Bushra Nevarez NP Active propranolol (Inderal) 60 MG tablet [id number] every 12 (twelve) hours Bushra Nevarez NP Active rizatriptan BUILDING CONSTRUCTION IRONWORKER (Maxalt-BUILDING CONSTRUCTION IRONWORKER) 10 MG disintegrating tablet [id number] DISSOLVE 1 TABLET BY MOUTH AT ONSET OF MIGRAINE DAILY; CAN REPEAT IN 2 (TWO) HOURS; MAX 2 (TWO) TABLETS IN 24 HOURS AND 3 (THREE) TIMES PER WEEK; MUST LAST 30 DAYS Patient not taking: Reported on 09/14/2024 Otiloi Jefferson DO Active SUMAtriptan (Imitrex) 50 MG tablet [id number] Patient not taking: Reported on 09/14/2024 Otilio Jefferson DO Active traZODone (Desyrel) 50 MG tablet [id number] Yes Take 50 mg by mouth as needed at bedtime MICHELLE Garg Active Zinc Acetate 25 MG capsule [id number] Take 25 mg by mouth in the morning. Patient not taking: Reported on 09/14/2024 Bushra Nevarez NP Active HPI MIGRAINE -was on Trileptal and Maxalt -she has been out of her medications for a few weeks -she needs refills -she is getting a migraine once a week -last a few hours to all day -Maxalt does help to abort -admits sound sensitivity and nausea -she is not sleeping well at night -she has trouble falling and staying asleep -she does have TONEY but cannot tolerate the mask -she gets about 4-5 hours -she was started on Trazodone about 1 week ago -she is unsure if this is helping Migraine Associated symptoms include back pain, dizziness, nausea and numbness. ROS Review of Systems Constitutional: Positive for fatigue. Respiratory: Positive for shortness of breath. Cardiovascular: Negative. Gastrointestinal: Positive for nausea. Musculoskeletal: Positive for back pain. Neurological: Positive for dizziness, numbness and headaches. Psychiatric/Behavioral: Positive for sleep disturbance. Objective Visit Vitals BP 126/82 Ht 5' 4 Wt (!) 430 lb BMI 73.81 kg/m OB Status Implant Smoking Status Former BSA 2.97 m Neurological Exam Mental Status Awake, alert and oriented to person, place and time. Oriented to person, place and time. Recent and remote memory are intact. Speech is normal. Language is fluent with no aphasia. Attention and concentration are normal. Cranial Nerves CN II: Visual wolff full to confrontation. CN III, IV, : Extraocular movements intact bilaterally. Normal lids and orbits bilaterally. Pupils equal round and reactive to light bilaterally. CN VII: Right: There is no facial weakness. Left: There is no facial weakness. CN VIII: Hearing is normal. CN IX, X: Palate elevates symmetrically CN XI: Shoulder shrug strength is normal. CN XII: Tongue midline without atrophy or fasciculations. Sensory Light touch is normal in upper and lower extremities. Coordination Epctfl-lw-etml, rapid alternating movements and bace-vu-dgvu normal bilaterally without dysmetria. Gait Normal casual, toe, heel and tandem gait. Motor Examination RUE Strength deltoid, biceps, triceps, wrist extensors, wrist extensors, wrist flexor, acid condenser strength 5/5. LUE Strength deltoid, biceps, triceps, wrist extensors, wrist extensors, wrist flexor, acid condenser strength 5/5. RLE Strength illopsoas, quadriceps, tibialis anterior, and gastrocnemius strength 5/5. LLE Strength illopsoas, quadriceps, tibialis anterior, and gastrocnemius strength 5/5. Tone Normal tone x4 extremities. Reflexes: RUE biceps reflex 2, LUE biceps reflex 2, RLE knee reflex 2, LLE knee reflex 2, Assessment and Plan Migraine without aura and without status migrainosus, not intractable (CMS/HCC) The patient has a past medical history [...] for headache prevention at low doses without benefit including Topamax, Zonegran, Elavil, Magnesium, Zanaflex, and Imitrex. She has responded fairly well to trileptal. Relpax was denied by her insurance. She was started on Maxalt. She has responded well but has been out of medication and her symptoms have increased. Plan: Continue Trileptal 300mg PO BID and will work up to this gradually as she has been out. Continue Maxalt BUILDING CONSTRUCTION IRONWORKER for abortive migraine therapy. I counseled the patient on the side effects of medications. She was advised to call for any new or worsening symptoms. Follow up in 2 months documented in this encounter [facility] 09-05-2024 Evaluation note Diagnosis Onset Date Resolution Nausea and vomiting acute September 05, 2024 1:55pm Viral URI with cough acute 2024 1:55pm [facility] Work Phone: [phone]) 608-118502-27-2025 Miscellaneous Notes* Telephone Encounter - Glenis Ivet - 08/25/2024 8:54 AM EST Die Lay Out Worker left voicemail to reschedule a missed appointment with Namita in [place]. Office number provided. [facility]* Telephone Encounter - Glenis Ivet - 08/25/2024 8:54 AM EST Die Lay Out Worker left voicemail to reschedule a missed appointment with Namita in [place]. Office number provided. [facility] Telephone encounter Note* Telephone Encounter - Russell Son PA - 08/22/2024 1:21 PM EST Patient was scheduled for virtual [facility] appt at 1pm today. Patient did not check in for visit. Called patient to see if they needed any assistance logging in. Patient did not answer and her VM was full so unable to leave a message. This message routed to PACC schedulers to contact patient to reschedule PACC appt. [facility] Work Phone: [phone] Miscellaneous Notes* Telephone Encounter - Russell Son PA - 08/22/2024 1:21 PM EST Patient was scheduled for virtual PACC appt at 1pm today. Patient did not check in for visit. Called patient to see if they needed any assistance logging in. Patient did not answer and her VM was full so unable to leave a message. This message routed to PACC schedulers to contact patient to reschedule PACC appt. documented [facility] Miscellaneous Notes* Telephone Encounter - Yakelin Cherry RN - 08/17/2024 3:51 PM EST Susi called stating pain not relieved with tylenol or ibuprofen. Reviewed with Dr. Holt. Script sent to pharmacy for [place]. Susi aware. documented in this encounterOhio[facility]-19-[facility]25 Telephone encounter Note* Telephone Encounter - Yakelin Cherry RN - 08/17/2024 3:51 PM EST Susi called stating pain not relieved with tylenol or ibuprofen. Reviewed with Dr. Holt. Script sent to pharmacy for [place]. Susi aware. [facility]02-17-[facility] History of Present illness Narrative* Peyman Holt MD - 08/15/2024 11:45 AM EST Called and discussed challenges with ventilation and positioning with aborted operation last Thursday. We discussed IR guided drainage of her ovarian cyst as well as continue to work with the [facility] weight loss team. We will plan to follow up with her in 1 month to see how her pain is as well as understand the progress she is making with weight loss. 26 minutes was spent on the phone, counseling the patient, placing orders and coordinating care with interventional radiology. documented in this encounterOhioHealth [facility]02-13-2025 Miscellaneous Notes* Telephone Encounter - Chantel Villar - 08/11/2024 12:04 PM EST Die Lay Out Worker notes pt is scheduled for surgery at [facility] tomorrow, due to cx pt surgery time is now moved upto 11:00am, show card writer called pt to inform her of time change, pt did not answer, show card writer left pt VM with time change and requested a return call to make sure she gets writers message. documented in this encounterOhioHealth [facility]02-13-2025 Telephone encounter Note* Telephone Encounter - Chantel Villar - 08/11/2024 12:04 PM EST Die Lay Out Worker notes pt is scheduled for surgery at [facility] tomorrow, due to cx pt surgery time is now moved upto 11:00am, show card writer called pt to inform her of time change, pt did not answer, show card writer left pt VM with time change and requested a return call to make sure she gets writers message. [facility]02-11[facility] Instructions* Pre-Procedure Instructions - Bushra Camp RN - 08/09/2024 2:45 PM EST Your surgery/procedure is scheduled at [facility] on 08/12/2024 at 1345 pm Arrival Time 1145 [facility] Address: [address] [place] [address] Park in [address] Parking lot located on [facility]. Report to the Entrance B. Check in at the information desk the surgery. The waiting room located on the second floor. If you have any questions prior to surgery, please call Pre-Admission Clinic at [phone] between 7:30 am and 4:30 pm Thursday through Thursday. If you have questions the morning of surgery, please call the Pre-op Department at [phone]. Notify your SURGEON if you develop any illness such as a cold, cough, fever, sore throat, vomiting or are hospitalized between now and your surgery. Medication Instructions (Do not stop your medications without consulting the prescribing physician). Take the following medications the morning of surgery with a sip of water: lamictal , propranolol, omeprazole,buspar Diabetic or Weight loss medications: HOLD n/a LAST DOSE n/a Take inhalers as prescribed the morning of surgery. Due to the risk associated with these medications. If these medications are not held per instruction below, your surgery is at an increased risk for cancellation. SGLT2 Medications- Hold 3 days prior to surgery: Jardiance, Empagliflozin, Farxiga, Dapagliflozin, Invokana, Canagliflozin, Trijardy, Synjardy GLP-1 Medications (Injection or Pill)- If taken daily hold day of surgery. If taken weekly, hold 1 week prior to surgery: Adlyxin, Byetta, Bydureon, Ozempic, Rybelsus,Trulicity, Victoza, Wegovy, Lixisenatide, Exenatide, Semaglutide, Dulaglutide, Liraglutide GIP/GLP-1(Injection or Pill)- If taken daily hold day of surgery. If taken weekly, hold 1 week prior to surgery: Mounjaro . Blood thinners: Please contact your prescribing physician regarding a stop/hold date for these medications. Medications such as Coumadin, Heparin, Aspirin, Plavix, Eliquis, Pradaxa Diabetics: If you take insulin, contact your prescribing doctor for instructions on how to manage this the night before and the morning of surgery. Non-steriodal Anti-Inflammatory Drugs (NSAIDS)- Hold 7 days prior to surgery unless otherwise directed by your surgeon. Vitamins/Herbal Products: You may continue to take your prescribed vitamins such as potassium, iron, vitamin B, vitamin C, or multivitamin unless specifically instructed by your surgeon to hold. STOPtaking all herbal products/teas one week prior to your surgery. Marijuana: Stop marijuana 72 hours prior to surgery, stop CBD oil 48 hours prior to surgery. If you have been given bowel prep instructions by your surgeon, please call the surgeon's office with any questions about these instructions. What do I do the day of Surgery? Age 2 through adult - Stop all solids by midnight, You may have clear liquids up to 2 hours before surgery, unless otherwise instructed by your surgeon. Clear liquids are: water, sports drinks such as Gatorade or G2, or apple juice. You may NOT have: tube feedings, dairy products, alcoholic beverages, orange juice, or any liquids with solids or pulp in it. If applicable, shower again with CHG soap the morning of your surgery. If you received a green plastic bracelet, bring it with you the day of surgery and your nurse will put it on you. In order to help prevent infection post-operatively, you may be asked to use a CHG mouthwash when you arrive to the Pre-op area. Your nurse will provide instruction the morning of. What do I need to do to prepare for surgery? If you will be going home the same day as your surgery, arrange for an adult over [address] Riding in a bus or taxi by yourself is not permitted. You should not smoke or drink alcohol 24 hours before your surgery. Alcohol thins the blood and may cause bleeding problems during surgery. Smoking increases the risk of breathing problems after surgery. Do not use lotions, creams, powders, perfume, make up, cologne or after-shaves day of surgery. Remove ALL jewelry including wedding rings, body piercings (including dermal piercings ,hair extensions that contain metal, nail canadian, make-up, and contact lens. You may brush your teeth the morning of surgery, but do not swallow the water. Wear your dentures and partial plates to the hospital (no adhesive). Shower the night the before. If applicable, use the CHG (chlorhexidine gluconate) soap or wipes What should I bring to the hospital? If you received a green plastic bracelet, bring it with you the day of surgery and your nurse will put it on you. Eyeglass or contact lens case If you will be spending the night, please bring personal care items and leave them in the car untilyou are taken to your room after surgery. Leave ALL valuables at home. If any of these instructions conflict with those you received from the surgeon, please seek clarification from your surgeon's office. DEEP BREATHING EXERCISES This exercise helps promote good air exchange and helps to prevent pneumonia after surgery. Breathe in slowly and deeply through the nose. Hold your breath for a few seconds and then exhale slowly through the mouth. Repeat this three times and then cough.Coughing helps to clear your lungs. If you have had a surgery with an incision into your abdomen or chest, press gently against your incision with a pillow or a folded blanket when you cough. Please be aware - it may not be allen to cough following some types of surgeries involving the eyes,ears, sinuses and throat. Always follow your doctor's instructions. LEG EXERCISE These exercises help promote good circulation and help to prevent blood clots after surgery. Point your toes to the ceiling and then point them to the wall. Do this slowly about 15-20 times. You may also move your feet in circles. Do the exercise that is most comfortable for you. If you have had surgery involving your shoulder or arm, we recommend you move your fingers. PRACTICING We ask that you begin practicing these exercises before your surgery. After surgery try to do both exercises at least every 2 hours during the day and early evening. SURGICAL SITE INFECTION PREVENTION What is a Surgical Site Infection? Infection can happen to the area of the body where surgery is done. This is called a surgical site infection (SSI). A SSI does not happen very often. Can SSIs be treated? Antibiotics are used to treat SSI. Some patients may need another surgery to treat the infection. The doctor will discuss treatment options with you. What are some of the things that hospitals are doing to prevent SSIs? Soap and water or alcohol hand rub are used before and after caring for each patient. Special soap is used to clean surgery workers hands and arms just before the surgery. Masks, gowns, gloves and hair covers are worn during the surgery to keep the area clean. Hair in the surgery area may be removed with clippers (not razors). A special soap that kills germs is used to clean the skin at the surgery site. Antibiotics may be given before the surgery starts. What can you do to prevent SSIs? Before surgery: You may be asked to shower or bathe with a special soap that kills germs the night before and the day of surgery. Use the soap as you were told. If you smoke, stop or cut down. Ask your doctor about ways to quit. Do not shave near where you will have surgery. Shaving can irritate the skin and make it easier to get and infection. After surgery: Be sure that the doctors and nurses clean their hands before and after touching you. Be sure your family and friends clean their hands before and after visiting you. Do not be afraid to remind them. * Care for your wound at home as told by your doctor or nurse * Call your doctor right away if you have fever, redness, increased pain, or drainage at the surgery site. Further questions? Contact the doctor, nurse or the Infection Prevention and Control department if you have any questions. PATIENT RIGHTS AND RESPONSIBILITIES As a patient at [facility], you have the right to: Receive medical care and be informed of who is taking care of you Be treated with dignity and respect Have a family member/sales representative jewelry of choice and your physician notified of your admission Receive information and actively participate in decisions about your care and treatment Refuse care, treatment and services Decide who may provide your support and speak for you Access confucianist and spiritual services Participate in ethical issues and questions about your care Receive private and confidential care Have appropriate assessment and management of your pain Know guest visitation restrictions or limitations Have an advance directive Access protective services Consent or refuse to participate in research studies or production or recordings, films or other images Have resolution of your complaints Receive information of hospital charges and payment methods Patient/patient sales representative jewelry responsibilities are to: Provide information about health status to facilitate care, treatment and services Follow the treatment, plan, keep appointments and speak up when you do not understand the plan Respect the rights of other patients and healthcare personnel Follow organizational rules and regulations that support quality care and a safe environment Fulfill financial obligations as promptly as possible [facility]02-11-[facility] Miscellaneous Notes* Pre-Procedure Instructions - Bushra Camp RN - 08/09/2024 2:45 PM EST Your surgery/procedure is scheduled at [facility] on 08/12/2024 at 1345 pm Arrival Time 1145 [facility] Address: [address] [place] [address]. [address] in Parking lot located on [facility]. Report to the Entrance B. Check in at the information desk the surgery. The waiting room located on the second floor. If you have any questions prior to surgery, please call Pre-Admission Clinic at [phone] between 7:30 am and 4:30 pm Thursday through Thursday. If you have questions the morning of surgery, please call the Pre-op Department at [phone]. Notify your SURGEON if you develop any illness such as a cold, cough, fever, sore throat, vomiting or are hospitalized between now and your surgery. Medication Instructions (Do not stop your medications without consulting the prescribing physician). Take the following medications the morning of surgery with a sip of water: lamictal , propranolol, omeprazole,buspar Diabetic or Weight loss medications: HOLD n/a LAST DOSE n/a Take inhalers as prescribed the morning of surgery. Due to the risk associated with these medications. If these medications are not held per instruction below, your surgery is at an increased risk for cancellation. SGLT2 Medications- Hold 3 days prior to surgery: Jardiance, Empagliflozin, Farxiga, Dapagliflozin, Invokana, Canagliflozin, Trijardy, Synjardy GLP-1 Medications (Injection or Pill)- If taken daily hold day of surgery. If taken weekly, hold 1 week prior to surgery: Adlyxin, Byetta, Bydureon, Ozempic, Rybelsus,Trulicity, Victoza, Wegovy, Lixisenatide, Exenatide, Semaglutide, Dulaglutide, Liraglutide GIP/GLP-1(Injection or Pill)- If taken daily hold day of surgery. If taken weekly, hold 1 week prior to surgery: Mounjaro . Blood thinners: Please contact your prescribing physician regarding a stop/hold date for these medications. Medications such as Coumadin, Heparin, Aspirin, Plavix, Eliquis, Pradaxa Diabetics: If you take insulin, contact your prescribing doctor for instructions on how to manage this the night before and the morning of surgery. Non-steriodal Anti-Inflammatory Drugs (NSAIDS)- Hold 7 days prior to surgery unless otherwise directed by your surgeon. Vitamins/Herbal Products: You may continue to take your prescribed vitamins such as potassium, iron, vitamin B, vitamin C, or multivitamin unless specifically instructed by your surgeon to hold. STOPtaking all herbal products/teas one week prior to your surgery. Marijuana: Stop marijuana 72 hours prior to surgery, stop CBD oil 48 hours prior to surgery. If you have been given bowel prep instructions by your surgeon, please call the surgeon's office with any questions about these instructions. What do I do the day of Surgery? Age 2 through adult - Stop all solids by midnight, You may have clear liquids up to 2 hours before surgery, unless otherwise instructed by your surgeon. Clear liquids are: water, sports drinks such as Gatorade or G2, or apple juice. You may NOT have: tube feedings, dairy products, alcoholic beverages, orange juice, or any liquids with solids or pulp in it. If applicable, shower again with CHG soap the morning of your surgery. If you received a green plastic bracelet, bring it with you the day of surgery and your nurse will put it on you. In order to help prevent infection post-operatively, you may be asked to use a CHG mouthwash when you arrive to the Pre-op area. Your nurse will provide instruction the morning of. What do I need to do to prepare for surgery? If you will be going home the same day as your surgery, arrange for an adult over [address] Riding in a bus or taxi by yourself is not permitted. You should not smoke or drink alcohol 24 hours before your surgery. Alcohol thins the blood and may cause bleeding problems during surgery. Smoking increases the risk of breathing problems after surgery. Do not use lotions, creams, powders, perfume, make up, cologne or after-shaves day of surgery. Remove ALL jewelry including wedding rings, body piercings (including dermal piercings ,hair extensions that contain metal, nail canadian, make-up, and contact lens. You may brush your teeth the morning of surgery, but do not swallow the water. Wear your dentures and partial plates to the hospital (no adhesive). Shower the night the before. If applicable, use the CHG (chlorhexidine gluconate) soap or wipes What should I bring to the hospital? If you received a green plastic bracelet, bring it with you the day of surgery and your nurse will put it on you. Eyeglass or contact lens case If you will be spending the night, please bring personal care items and leave them in the car untilyou are taken to your room after surgery. Leave ALL valuables at home. If any of these instructions conflict with those you received from the surgeon, please seek clarification from your surgeon's office. DEEP BREATHING EXERCISES This exercise helps promote good air exchange and helps to prevent pneumonia after surgery. Breathe in slowly and deeply through the nose. Hold your breath for a few seconds and then exhale slowly through the mouth. Repeat this three times and then cough.Coughing helps to clear your lungs. If you have had a surgery with an incision into your abdomen or chest, press gently against your incision with a pillow or a folded blanket when you cough. Please be aware - it may not be allen to cough following some types of surgeries involving the eyes,ears, sinuses and throat. Always follow your doctor's instructions. LEG EXERCISE These exercises help promote good circulation and help to prevent blood clots after surgery. Point your toes to the ceiling and then point them to the wall. Do this slowly about 15-20 times. You may also move your feet in circles. Do the exercise that is most comfortable for you. If you have had surgery involving your shoulder or arm, we recommend you move your fingers. PRACTICING We ask that you begin practicing these exercises before your surgery. After surgery try to do both exercises at least every 2 hours during the day and early evening. SURGICAL SITE INFECTION PREVENTION What is a Surgical Site Infection? Infection can happen to the area of the body where surgery is done. This is called a surgical site infection (SSI). A SSI does not happen very often. Can SSIs be treated? Antibiotics are used to treat SSI. Some patients may need another surgery to treat the infection. The doctor will discuss treatment options with you. What are some of the things that hospitals are doing to prevent SSIs? Soap and water or alcohol hand rub are used before and after caring for each patient. Special soap is used to clean surgery workers hands and arms just before the surgery. Masks, gowns, gloves and hair covers are worn during the surgery to keep the area clean. Hair in the surgery area may be removed with clippers (not razors). A special soap that kills germs is used to clean the skin at the surgery site. Antibiotics may be given before the surgery starts. What can you do to prevent SSIs? Before surgery: You may be asked to shower or bathe with a special soap that kills germs the night before and the day of surgery. Use the soap as you were told. If you smoke, stop or cut down. Ask your doctor about ways to quit. Do not shave near where you will have surgery. Shaving can irritate the skin and make it easier to get and infection. After surgery: Be sure that the doctors and nurses clean their hands before and after touching you. Be sure your family and friends clean their hands before and after visiting you. Do not be afraid to remind them. * Care for your wound at home as told by your doctor or nurse * Call your doctor right away if you have fever, redness, increased pain, or drainage at the surgery site. Further questions? Contact the doctor, nurse or the Infection Prevention and Control department if you have any questions. PATIENT RIGHTS AND RESPONSIBILITIES As a patient at [facility], you have the right to: Receive medical care and be informed of who is taking care of you Be treated with dignity and respect Have a family member/sales representative jewelry of choice and your physician notified of your admission Receive information and actively participate in decisions about your care and treatment Refuse care, treatment and services Decide who may provide your support and speak for you Access confucianist and spiritual services Participate in ethical issues and questions about your care Receive private and confidential care Have appropriate assessment and management of your pain Know guest visitation restrictions or limitations Have an advance directive Access protective services Consent or refuse to participate in research studies or production or recordings, films or other images Have resolution of your complaints Receive information of hospital charges and payment methods Patient/patient sales representative jewelry responsibilities are to: Provide information about health status to facilitate care, treatment and services Follow the treatment, plan, keep appointments and speak up when you do not understand the plan Respect the rights of other patients and healthcare personnel Follow organizational rules and regulations that support quality care and a safe environment Fulfill financial obligations as promptly as possible documented in this encounterOhio[facility]02-10-[facility] History of Present illness Narrative* Amina Nieto MD - 08/08/2024 9:30 AM EST I have communicated my name and active licensure. The patient's identity and physical location wereverified at the time of this visit. Either the patient or their legal sales representative jewelry has been informed of the risks and benefits of -- and alternatives to -- treatment through a remote evaluation andconsents to proceed with the evaluation remotely. CC/HPI: 39 year old lady presents for follow up evaluation for medical weight loss. Intervention: attempted Mounjaro as an adjunct to TLI (therapeutic lifestyle interventions); however not covered by insurance. Also previously prescribed Metformin which she is still taking; declinedtaking Topamax d/t reports having side effects when she took it in the past. General Health Updates: Patient specifies the following items as new or significant updates in general health since last appointment here: Diet: had a visit with Karon Yodit this morning-see visit-was a travel day; a normal day. Suggested tracking her intake via [employer] -B: protien shake or yogurt -L: couple of ham and cheese roll ups -D: chicken, or some kind of protein -snacks-will sometimes snack in between -beverages-does a good job with fluids-no pop/juice or soda or alcohol Physical activity: does as much as walking as she can-limited d/t back-suggested chair exercises-orwater workouts (she has a [employer] nearby her) OTHER: -07/19/24 MYM/Alicia-would like UGI done locally -07/18/24 OV BMI/Gutnick-follow up abdominal pain -05/05/24 OV BMI/RD/Gloria Monsivais -04/19/24 OV BMI/Gorty MEDS: See Epic CARDIAC: -Procedure Date : Mar 10 2023 EKG Diagnosis: NORMAL SINUS RHYTHM NORMAL ECG PMH: Women: Control method: PSHX: PAST MEDICAL HISTORY Diagnosis Date Bipolar disorder (HCC) DDD (degenerative disc disease), lumbar Depression Eczema GERD (gastroesophageal reflux disease) Migraine tirzepatide (MOUNJARO) 2.5 mg/0.5 mL pen injector Inject 2.5 mg subcutaneously one time a week. metFORMIN ER (GLUCOPHAGE XR) 500 mg 24 [...] Take 60 mg by mouth once daily. ALLERGIES Allergen Reactions Adhes. Cpoq-Ekwh-Ym* Rash Adhesive Tape-Silic* Rash Augmentin [Amoxicil* Diarrhea Keflex [Cephalexin] Rash, Itching Penicillins Hives Ultram [Tramadol Hc* Itching PHYSICAL EXAMINATION: Wt (!) 177.8 kg (392 lb) LMP 07/08/2023 (Approximate) BMI 67.29 kg/m General: alert and appropriate, in no distress, well-hydrated, well nourished, happy, smiling, interactive, and pleasant lady Skin: no rash noted Head: normocephalic, no abnormality or lesion noted Eyes: no injection and visual acuity is grossly normal Respiratory: breathing non-labored REVIEW OF SYSTEMS Non-remarkable except for what is noted in HPI and/or Assessment/plan ASSESSMENT: Reviewed principles of energy metabolism, caloric intake and expenditure, and rationale for treatment program. Also reinforced need for reduced calorie, low fat diet and increased physical Activity. 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 Granda Weight and BMI today (08/08/24) = 392 lbs Weight and BMI previous visit dated: 04/19/24 = 368 lb -continue Metformin-had attempted Mounjaro at previous visit for prediabetes-had denied personal orfamily h/o MTC; no h/o pancreatitis . Declines Topamax (had side effects in past with this). Consider Trulicity. Consider Phentermine (has taken it before and tolerated well), Contrave. (Briefly discussed and she will think about this). After discussion: today will attempt Wegovy prescription and see other options above as noted for Plan B. -follow up with RD recommended -labs completed 05/22-zinc low; and cbc showed elevated wbc-referred to Hematology. -continue TLI (therapeutic lifestyle interventions), including physical activity to include strength training a couple of times per week (suggested looking into chair exercise or water exercise) alsodiscussed self-care; sleep varies; was put on a sleeping pill to help; supposed to use cpap, but not currently using. Encouraged her to resume cpap. -follow up approximately 3 months or so. 2)TONEY-suggested resuming Her cpap and also Amina Nieto MD I spent a total of 30 minutes on the date of the service which included preparing to see the patient, moam-wm-yeam patient care, completing clinical documentation, obtaining and/or reviewing separately obtained history, counseling and educating the patient/family/caregiver, ordering medications, keli ts, or procedures, and care coordination (not separately reported). documented in [facility]25 NoteHNO ID: [id number] Author: AMINA NIETO MD Service: ? Author Type: Physician Type: Progress Notes Filed: 08/08/2024 14:05 Note Text: I have communicated my name and active licensure. The patient's identity and physical location were verified at the time of this visit. Either the patient or their legal sales representative jewelry has been informed of the risks and benefits of -- and alternatives to -- treatment through a remote evaluation and consents to proceed with the evaluation remotely. CC/HPI: 39 year old lady presents for follow up evaluation for medical weight loss. Intervention: attempted Mounjaro as an adjunct to TLI (therapeutic lifestyle interventions); however not covered by insurance. Also previously prescribed Metformin which she is still taking; declined taking Topamax d/t reports having side effects when she took it in the past. General Health Updates: Patient specifies the following items as new or significant updates in general health since last appointment here: Diet: had a visit with Karon Monsivais this morning-see visit-was a travel day; a normal day. Suggested tracking her intake via Baritastic -B: protien shake or yogurt -L: couple of ham and cheese roll ups -D: chicken, or some kind of protein -snacks-will sometimes snack in between -beverages-does a good job with fluids-no pop/juice or soda or alcohol Physical activity: does as much as walking as she can-limited d/t back-suggested chair exercises-or water workouts (she has a [employer] nearby her) OTHER: -07/19/24 MYM/Alicia-would like UGI done locally -07/18/24 OV BMI/Gutnick-follow up abdominal pain -05/05/24 OV BMI/RD/Gloria Monsivais -04/19/24 OV BMI/Gorty MEDS: See Epic CARDIAC: -Procedure Date : Mar 10 2023 EKG Diagnosis: NORMAL SINUS RHYTHM NORMAL ECG PMH: Women: Control method: PSHX: PAST MEDICAL HISTORY Diagnosis Date Bipolar disorder (HCC) DDD (degenerative disc disease), lumbar Depression Eczema GERD (gastroesophageal reflux disease) Migraine tirzepatide (MOUNJARO) 2.5 mg/0.5 mL pen injector Inject 2.5 mg subcutaneously one time a week. metFORMIN ER (GLUCOPHAGE XR) 500 mg 24 [...] Take 60 mg by mouth once daily. ALLERGIES Allergen Reactions Adhes. Zyjz-Fccn-Yw* Rash Adhesive Tape-Silic* Rash Augmentin [Amoxicil* Diarrhea Keflex [Cephalexin] Rash, Itching Penicillins Hives Ultram [Tramadol Hc* Itching PHYSICAL EXAMINATION: Wt (!) 177.8 kg (392 lb) LMP 07/08/2023 (Approximate) BMI 67.29 kg/m? General: alert and appropriate, in no distress, well-hydrated, well nourished, happy, smiling, interactive, and pleasant lady Skin: no rash noted Head: normocephalic, no abnormality or lesion noted Eyes: no injection and visual acuity is grossly normal Respiratory: breathing non-labored REVIEW OF SYSTEMS Non-remarkable except for what is noted in HPI and/or Assessment/plan ASSESSMENT: Reviewed principles of energy metabolism, caloric intake and expenditure, and rationale for treatment program. Also reinforced need for reduced calorie, low fat diet and increased physical Activity. 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 Granda Weight and BMI today (08/08/24) = 392 lbs Weight and BMI previous visit dated: 04/19/24 = 368 lb -continue Metformin-had attempted Mounjaro at previous visit for prediabetes-had denied personal or family h/o MTC; no h/o pancreatitis . Declines Topamax (had side effects in past with this). Consider Trulicity. Consider Phentermine (more content not included)...[facility] [place]02-[facility] Instructions* Patient Instructions* Karon Monsivais RD - 08/08/2024 8:07 AM EST 1. Protein: Continue to strive [...] AND 1800- 2400 mg calcium citrate daily taken in divided [...] should last 30 minutes. 7. Aim for 1700 calories and 75-100 gm carbs per day Nutrition Monitoring & Evaluation: BMI < 60 Need for Follow up: 6 months, [phone] documented in [facility] encounterGe[facility]25 NoteHNO ID: [id number] Author: KARON MONSIVAIS RD Service: ? Author Type: Registered Dietitian Type: Progress Notes Filed: 08/08/2024 08:14 Note Text: [facility] Therapy: Virtual Consult - Re-assessment I have communicated my name and active licensure. The patient?s identity and physical location were verified at the time of this visit. Either the patient or their legal sales representative jewelry has been informed of the risks and benefits of -- and alternatives to -- treatment through a remote evaluation and consents to proceed with the evaluation remotely. Nutrition Diagnosis: Altered Gastrointestinal Tract Function, related to, S/P bariatric surgery, as evidenced by patient update and PSH RECOMMENDED MALNUTRITION DIAGNOSIS: NO MALNUTRITION IDENTIFIED NUTRITION CARE PLAN: Nutrition Intervention 08/08/2024: Modify type and amount of food and [...] 60 mg Iron (1x per day) AND 1881-6346 mg calcium citrate daily taken in divided [...] should last 30 minutes. 7. Aim for 1700 calories and 75-100 gm carbs per day Nutrition Monitoring AND Evaluation: BMI < 60 Need for Follow up: 6 months, [phone] PROGRESS: Interval History: Patient presents for follow up MNT 1 year post-op BPD with DS (Dr. Granda). Since last assessment Patient reports feeling well overall. Net weight loss 9 pounds (401 lbs initial) 2% TWL Pre-surgery weight: 388 pounds 24 pounds weight gain since last assessment (368 lbs) Patient reports desired weight of < 300 pounds Diet recall indicates consistent meal pattern with no missed meals. Meals are balanced and protein-dense. Following Phase 5 diet appropriately. N/A calories/day 100 gm protein intake/day - meeting needs 80 oz fluid intake/day - meeting needs Taking all vitamin/minerals. Labs not yet available for review. Resting Metabolic Rate: 2439 Energy needs for weight loss 1725-3968 (10-15 harpreet/kg current weight) Protein needs: 96-128 grams protein per day (1.5 - 2.0 g/kg IBW kg) Exercise - limited but consistent with walking and resistance bands Nutrition Intervention 05/05/2024: Modify type and amount [...] 60 mg Iron (1x per day) AND 2074-3835 mg calcium citrate daily taken in divided [...] (with skin), brown rice, quinoa -for recipes: https://bariatricmealAltSchool.Simpli.fi/bariatric-recipes/ https://www.bariatricfusion.com/blogs/blog/tagged/bariatric-recipes https://www.prevention.com/food-nutrition/f63534391/0-kvgeoaw-ziawau-meal-prep-r ecipes/ https://www.bariatricmealcoach.com https://www.bariatriceating.com/ https://www.treofoundation.org/cookbook/ Actions to implement interventions: Diet History: Breakfast - protein shake (Premier) OR peruvian yogurt Snack - peruvian yogurt Lunch - ham and cheese roll ups (2) with pickle Snack - sometimes, peruvian yogurt OR boiled eggs (2) Dinner - chicken with green beans or mushrooms, rare 1/4 cup mashed potatoes Snack - sometimes, peruvian yogurt Beverages - water (64-76 oz), SF fruit juice (8 oz) Alcohol - none Vitamins/Supplements - [facility] DS MVI (1), calcium citrate (2000 mg) Activity: Activities of Daily Living: 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 The patient s identity and physical location wereverified at the time of this visit. Either the patient or their legal sales representative jewelry has been informed of the risks and benefits of -- and alternatives to -- treatment through a remote evaluation andconsents to proceed with the evaluation remotely. Nutrition Diagnosis: Altered Gastrointestinal Tract Function, related to, S/P bariatric surgery, asevidenced by patient update and PSH RECOMMENDED MALNUTRITION DIAGNOSIS: NO MALNUTRITION IDENTIFIED NUTRITION CARE PLAN: Nutrition Intervention 08/08/2024: Modify type and amount of food and [...] AND 1800- 2400 mg calcium citrate daily taken in divided [...] should last 30 minutes. 7. Aim for 1700 calories and 75-100 gm carbs per day Nutrition Monitoring & Evaluation: BMI < 60 Need for Follow up: 6 months, [phone] PROGRESS: Interval History: Patient presents for follow up MNT 1 year post-op BPD with DS (Dr. Granda). Since last assessment Patient reports feeling well overall. Net weight loss 9 pounds (401 lbs initial) 2% TWL Pre-surgery weight: 388 pounds 24 pounds weight gain since last assessment (368 lbs) Patient reports desired weight of < 300 pounds Diet recall indicates consistent meal pattern with no missed meals. Meals are balanced and protein-dense. Following Phase 5 diet appropriately. N/A calories/day 100 gm protein intake/day - meeting needs 80 oz fluid intake/day - meeting needs Taking all vitamin/minerals. Labs not yet available for review. Resting Metabolic Rate: 2439 Energy needs for weight loss 0468-7991 (10-15 harpreet/kg current weight) Protein needs: 96-128 grams protein per day (1.5 - 2.0 g/kg IBW kg) Exercise - limited but consistent with walking and resistance bands Nutrition Intervention 05/05/2024: Modify type and amount [...] AND 1800- 2400 mg calcium citrate daily taken in divided [...] (with skin), brown rice, quinoa -for recipes: https://bariatricmealSpring Metricsp.Simpli.fi/bariatric-recipes/ https://www.bariatricfusion.com/blogs/blog/tagged/bariatric-recipes https://www.Idea Device.com/food-nutrition/x58734697/1-kjswysk-vpflkt-meal-prep-r ecipes/ https://www.bariatricmealcoach.com https://www.bariatriceating.com/ https://www.treofoundation.org/cookbook/ Actions to implement interventions: Diet History: Breakfast - protein shake (Premier) OR peruvian yogurt Snack - peruvian yogurt Lunch - ham and cheese roll ups (2) with pickle Snack - sometimes, peruvian yogurt OR boiled eggs (2) Dinner - chicken with green beans or mushrooms, rare 1/4 cup mashed potatoes Snack - sometimes, peruvian yogurt Beverages - water (64-76 oz), SF fruit juice (8 oz) Alcohol - none Vitamins/Supplements - [employer] DS MVI (1), calcium citrate (2000 mg) Activity: 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 RMR can't be calculated - [...] SIGNATURE: Karon Monsivais RD PATIENT NAME: Susi Naqvi Ortiz DATE: August 08, 2024 TIME: 7:47 AM PAGER: N/A documented in [facility]Ge[facility]02-[facility]25 History of Present illness Narrative* Peyman Holt MD - 08/03/2024 1:00 PM EST Subjective: Susi is a 39 y.o. female here for consultation from for evaluation and management of 11cm right ovarian cyst. She has a significant discomfort from this and had a CT abdomen and pelvis that revealed the above diagnosis. She is here for further management today. We discussed obtaining tumor markers. 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 She strongly desires f uture fertility and wishes to asked to minimally invasive cystectomy versus oophorectomy, with possible laparotomy Oncology History No overview note Susi : Denies Early satiety Denies Abdominal distention Denies Leg swelling Denies Shortness of breath Denies Vaginal bleeding Denies Change in bowel habits Denies Change in bladder habits Denies Nausea and vomiting All other systems negative, unless specifically noted in HPI. Past Gynecologic History: OB History No obstetric history on file. No LMP recorded. (Menstrual status: Continuous control ). Hormonal Contraceptives No HRT use No History of abnormal pap No Past Surgical History: Procedure Laterality Date BACK SURGERY 4100-3458 L4 & L5, L5 S1 CARPAL TUNNEL RELEASE Bilateral 2010 CHOLECYSTECTOMY 2007 DECOMPRESSION NERVE ULNAR Right 12/02/2023 Performed by Otilio Jefferson DO at [facility] DECOMPRESSION NERVE ULNAR Left 11/04/2023 Performed by Otilio Jefferson DO at [facility] EGD WITH STENT N/A 06/26/2017 Performed by Andrea Platt MD at [facility] GASTROPLASTY DUODENAL SWITCH 2023 [facility] INCISION AND DRAINAGE MIDSECTION abdominal wound with wound vac N/A 09/10/2017 Performed by Artur Pinon MD at [facility] LAPAROSCOPIC GASTROSTOMY N/A 08/06/2017 Performed by Artur Pinon MD at [facility] LAPAROSCOPIC SLEEVE GASTRECTOMY WITH LYSIS OF ADHESIONS FOR 75% OF CASE TIME N/A 06/10/2017 Performed by Artur Pinon MD at [facility] OTHER SURGICAL HISTORY gastric stent REMOVAL STENT, EGD N/A 08/06/2017 Performed by Andrea Platt MD at [facility] SPLENECTOMY 2015 [facility] TONSILLECTOMY 2016 Past Medical History: Diagnosis Date Abscess of spleen removed 2014 for enlargement Allergic rhinitis Anemia Anxiety Back pain Bipolar 1 disorder (CMS-HCC) Depression Eczema Fibromyalgia, primary Fractures left wrist-as child Gastric leak GERD (gastroesophageal reflux disease) Hypertension Kidney stone 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 Objective: BP 146/84 Pulse 88 Resp 20 Ht 162.6 cm (5' 4.02 ) Wt (!) 193.7 kg (427 lb) SpO2 96% BMI73.26 kg/m ECO- Asymptomatic General appearance: alert, appears stated age and cooperative Head: Normocephalic, without obvious abnormality, atraumatic Ears: normal TM's and external ear canals both ears Neck: no adenopathy, no carotid bruit, no JVD, supple, symmetrical, trachea midline and thyroid notenlarged, symmetric, no tenderness/mass/nodules Lungs: clear to auscultation bilaterally Breasts: normal appearance, no masses or tenderness Heart: regular rate and rhythm, S1, S2 normal, no murmur, click, rub or gallop Abdomen: abnormal findings: Soft, multiple well-healed incisions, obese Pelvic: Deferred today Extremities: extremities normal, atraumatic, no cyanosis or edema Pulses: 2+ and symmetric Skin: Skin color, texture, turgor normal. No rashes or lesions Lymph nodes: Cervical, supraclavicular, and axillary nodes normal. Neurologic: Grossly normal Labs: Lab Results Component Value Date WBC 12.6 (H) 07/07/2024 HGB 13.7 07/07/2024 HCT 41.3 07/07/2024 MCH 30.5 07/07/2024 MCHC 33.1 07/07/2024 PLT 572 (H) 07/07/2024 MPV 7.7 07/07/2024 RDW 15.4 (H) 07/07/2024 Lab Results Component Value Date BUN 8 07/07/2024 K 4.1 07/07/2024 CL 99 07/07/2024 ALBUMIN 3.8 07/07/2024 AST 46 (H) 07/07/2024 AST 23 05/29/2017 No results found for: GGT No results found for: LDH Lab Results Component Value Date MG 1.8 07/07/2024 No results found for: PHOS No results found for: URIC Assessment: Patient is diagnosed with Patient Active Problem List Diagnosis Fatigue Gastroesophageal reflux disease without esophagitis Morbid obesity ([facility]-HCC) Pelvic mass in female Plan: 1. The patient has a documented plan of care to address pain. 2. Pelvic mass in female-plan for minimally invasive cystectomy, possible oophorectomy, possible laparotomy. 3. Discussed in detail the possibilities of a benign, borderline, or malignant process of the the ovary. Explained in detail that surgical excision with frozen pathologic evaluation and complete surgical staging-including removal of omentum, pelvic and para-aortic lymph nodes and peritoneal biopsies is the standard of care. Discussed the risks of surgery in detail including; bleeding, infection, damage to internal organs, risk of anesthesia including-clots, pneumonia, myocardial infarction, stroke and even . The patient understands the risks and elects to proceed. 4. Total time spent was 63 minutes: Preparing to see the patient (e.g., review of tests) Obtaining and/or reviewing separately obtained history Performing a medically appropriate examination and/or evaluation Counseling and educating the patient/family/caregiver Ordering medications, tests, or procedures Referring and communicating with other health care information associate (not separately reported) Documenting clinical information in the electronic or other health record Peyman Holt MD documented in this encounter[facility] History of Present illness Narrative* Dennise Smith LPN - 07/21/2024 10:30 AM EST Reason for Appointment: Patient ID: Susi Ortiz is a 39 y.o. female who presents for ER Follow-up Patient presents today for Consult appointment. MEDICATIONS Current Outpatient Medications Medication Instructions ARIPiprazole (ABILIFY) 15 mg, Nightly biotin 10 mg busPIRone (BUSPAR) 15 mg, 2 times daily calcium carbonate (OS-HARPREET) 1,250 mg, 2 times daily calcium citrate 500 mg, Daily cetirizine (ZYRTEC) 10 mg, Daily cholecalciferol (Vitamin D-3) 1.25 MG (44281 UT) capsule DULoxetine (CYMBALTA) 60 mg, Daily eletriptan (RELPAX) 20 mg, Once as needed esomeprazole (NexIUM) [address] capsule 1 capsule, Every 24 hours famotidine (Pepcid) 20 MG tablet TAKE 1 TABLET BY MOUTH AT BEDTIME ONCE DAILY NEEDED ferrous sulfate 325 mg, Daily RT hydroCHLOROthiazide (HYDRODiuril) 12.5 MG tablet TAKE 1 TABLET BY MOUTH IN THE MORNING EVERY DAY hydrOXYzine pamoate (Vistaril) 50 MG capsule TAKE 1 CAPSULE BY MOUTH AT BEDTIME NEEDED oral at bed time as needed for 90 days lamoTRIgine (LaMICtal) 100 MG tablet 1 tablet, Every morning Levonorgestrel (Mirena, 52 MG,) 20 MCG/DAY intrauterine device 1 each loratadine (Claritin) 10 MG tablet TAKE 1 TABLET BY MOUTH DAILY Oral for 30 LORazepam (ATIVAN) 0.5 mg, Oral, See admin instructions, 1 by mouth 1 hour prior to MRI metFORMIN XR (GLUCOPHAGE-XR) 500 mg, Daily with evening meal montelukast (Singulair) 10 MG tablet Every 24 hours Multiple Vitamin (Multi Vitamin) tablet Every 24 hours Multiple Vitamins-Minerals (Bariatric Multivitamins/Iron) capsule Take by mouth omeprazole (PriLOSEC) [address] capsule Every 24 hours ondansetron (ZOFRAN) 4 mg, Oral, Every 6 hours PRN, Take 1 tablet by mouth every 6 hours as needed for nausea. ondansetron ODT (Zofran-ODT) 4 MG disintegrating tablet OXcarbazepine (Trileptal) 300 MG tablet TAKE 1 & 1/2 (ONE AND ONE-HALF) TABLETS BY MOUTH AT BEDTIME prazosin (Minipress) 2 MG capsule Every 24 hours propranolol (Inderal) 60 MG tablet Every 12 hours rizatriptan BUILDING CONSTRUCTION IRONWORKER (Maxalt-BUILDING CONSTRUCTION IRONWORKER) 10 MG disintegrating tablet DISSOLVE 1 TABLET BY MOUTH AT ONSET OF MIGRAINE DAILY; CAN REPEAT IN 2 (TWO) HOURS; MAX 2 (TWO) TABLETS IN 24 HOURS AND 3 (THREE) TIMES PER WEEK; MUST LAST 30 DAYS SUMAtriptan (Imitrex) 50 MG tablet Zinc Acetate 25 mg, Daily RT ALLERGIES Allergies Allergen Reactions Amoxicillin-Pot [...] Arthralgia of both knees 01/17/2017 Bipolar depression ([facility]) 10/04/2015 DDD (degenerative disc disease), lumbar 10/04/2015 GERD without esophagitis 10/04/2015 Hypokalemia 08/07/2023 Hypophosphatemia ([facility]) 08/07/2023 Morbid obesity ([facility]) 06/10/2017 TONEY on CPAP 10/04/2015 Chronic midline low back pain without sciatica 01/17/2017 S/P bariatric surgery 08/04/2023 Insomnia 11/09/2023 Migraine ([facility]) 11/09/2023 Myalgia 11/09/2023 Sleep apnea 11/09/2023 Muscle spasm 11/09/2023 Tension type headache 11/09/2023 TONEY (obstructive sleep apnea) 11/09/2023 Chronic migraine without aura without status migrainosus, not intractable ([facility]) 11/09/2023 Resolved Ambulatory Problems Diagnosis Date Noted No Resolved Ambulatory Problems Past Medical History: Diagnosis Date Anxiety Bursitis of shoulder Chronic back pain CTS (carpal tunnel syndrome) Depression ([facility]) Eczema Fracture of wrist GERD (gastroesophageal reflux disease) Hypertension ([facility]) Lumbosacral disc disease Migraines (CMS/HCC) Obesity Pituitary [...] date: 06/29/2003 Quit date: 06/29/2013 Years since quittin.0 Smokeless tobacco: Never Vaping Use Vaping status: Every Day Substance Use Topics Alcohol use: Not Currently Comment: caffeine: 2-3 cups per day Drug use: Never FAMILY HISTORY Family History Problem Relation Name Age of Onset Thyroid disease Mother Lymphoma Father Barton Hypertension Father Barton Diabetes Father Barton Cancer Father Barton SURGICAL HISTORY Past Surgical History: Procedure Laterality Date BACK SURGERY 2011, 2013 BARIATRIC SURGERY gastric sleeve BARIATRIC SURGERY 08/04/2023 duodenal switch CARPAL TUNNEL RELEASE 2008, 2009 CARPAL TUNNEL RELEASE Left CARPAL TUNNEL RELEASE Right CHOLECYSTECTOMY GALL BLADDER 2008 LAPAROSCOPY DIAGNOSTIC / BIOPSY / ASPIRATION / LYSIS 01/30/2020 LUMBAR DISCECTOMY OVARIAN CYST REMOVAL Right SPLENECTOMY, TOTAL TONSILLECTOMY ULNAR NERVE REPAIR Left 11/04/2023 Dr. Jefferson/ ulnar nerve decompression ULNAR NERVE TRANSPOSITION Right 12/02/2023 Dr. Jefferson REVIEW OF SYSTEMS Review of Systems: Review of Systems Genitourinary: Positive for pelvic pain. All other systems reviewed and are negative. [...] nursing note reviewed. Exam conducted with a early years teacher present. Vitals: Estimated body mass index is 74.05 kg/m as calculated from the following: Height as of 03/07/24: 5' 4 . Weight as of this encounter: 431 lb 6.4 oz. BP: 124/80 No LMP recorded. Patient has had an implant. ASSESSMENT & PLAN ICD-10-CM 1. Right ovarian cyst N83.201 2. Follow-up exam Z09 Patient presents to office today follow up ER visit. Reviewed results with patient and informed patient that with 11cm ovarian cyst/mass she will actually be referred to Dr. Peyman Holt. PVU and given prescription for pain meds prior to leaving office today. Patient to be referred to Dr. Peyman Holt for management of ovarian cyst. Patient to return to clinic for any further concerns and routine FINANCIAL COORDINATOR care. Documented by Dennise Smith LPN on behalf of: Jamie Harley DO documented in this encounterSSM [id number] Telephone encounter Note* Telephone Encounter - Malissa Vivas - 07/19/2024 1:38 PM EST Phoned patient but no answer. Left advising patient that orders for UGI study have been sent [facility]. Provided callback number if she needs anything or has any questions. Malissa Vivas RN BSN Room Clerk for Dr. Granda and Jayshree Huffman, KATTY [facility]01-21-2025 Miscellaneous Notes* Telephone Encounter - Malissa Vivas - 07/19/2024 1:38 PM EST Phoned patient but no answer. Left advising patient that orders for UGI study have been sent [facility]. Provided callback number if she needs anything or has any questions. Christopher Vivas HEEL MOLDER Room Clerk for Dr. Granda and Jayshree Huffman, KATTY documented in this encounterGeorgetown [facility]01-20-2025 NoteHNO ID: [id number] Author: ?, ?, ? Service: ? Author Type: ? Type: Progress Notes Filed: 07/18/2024 14:10 Note Text: Patient's EGD has been scheduled and order for upper GI has been mailed to patient - she would like to have the upper GI done closer to where she lives [facility]01-20-2025 History of Present illness Narrative* Magdalena Herman - 07/18/2024 2:09 PM EST Patient's EGD has been scheduled and order for upper GI has been mailed to patient - she would liketo have the upper GI done closer to where she lives documented in this encounterGeorgetown [facility] Hospital01-[facility]25 History of Present illness Narrative* Joe Granda MD - 07/18/2024 2:00 PM EST VIRTUAL VISIT PROGRESS NOTE This is a virtual visit using [employer] Video Visit. It required patient- provider interaction for the medical decision making as documented below. I have communicated my name and active licensure. The patient's identity and physical location wereverified at the time of this visit. Either the patient or their legal sales representative jewelry has been informed of the risks and benefits of -- and alternatives to -- treatment through a remote evaluation andconsents to proceed with the evaluation remotely. Susi Ortiz is a 39 year old female seen for abdominal pain. Recent ER visit for this. Isepigastric, worse when she does not eat. Known DS by me, open due to extensive prior surgery. No change to bowel function. No weight loss. Able to take vitamins. . HISTORY REVIEWED (electronic chart updated): PAST MEDICAL HISTORY Diagnosis Date Bipolar disorder (HCC) DDD (degenerative disc disease), lumbar Depression Eczema GERD (gastroesophageal reflux disease) Migraine PAST SURGICAL HISTORY Procedure Laterality Date CHOLECYSTECTOMY HX 06/29/2007 LAP SLEEVE GASTRECTOMY 2017 LAPAROSCOPIC DUODENAL SWITCH SURGERY 08/04/2023 NEUROPLASTY &/TRANSPOS MEDIAN NRV CARPAL TUNNE 2008;2009 [...] Grandfather Difficulty with anesthesia No Family History Social History Tobacco Use Smoking status: Former Current packs/day: 0.00 Average packs/day: 0.5 packs/day for 5.0 years (2.5 ttl pk-yrs) Types: Cigarettes Start date: 12/27/2008 Quit date: 12/27/2013 Years since quittin.5 Smokeless tobacco: Never Vaping Use Vaping status: Never Used Substance Use Topics Alcohol use: Not Currently Comment: None since 2012 Drug use: Never Current Outpatient Medications Medication Sig tirzepatide (MOUNJARO) 2.5 mg/0.5 mL pen injector Inject 2.5 mg subcutaneously one time a week. metFORMIN ER (GLUCOPHAGE XR) 500 mg 24 [...] for this visit. ALLERGIES Allergen Reactions Adhes. Hpdf-Gzls-Gh* Rash Adhesive Tape-Silic* Rash Augmentin [Amoxicil* Diarrhea Keflex [Cephalexin] Rash, Itching Penicillins Hives Ultram [Tramadol Hc* Itching PHYSICAL EXAMINATION: VIDEO EXAM: (if completed, performed via video enabled technology) GENERAL: alert and appropriate, in no distress and overweight TESTING OSH CT report: indings: Overall evaluation is markedly limited due to the patient's habitus residing outside of the field of view causing artifact. The visualized lung bases are unremarkable. Presumed left upper quadrant residual splenic tissue. The gallbladder is surgically absent. No overt interval hepatic mass. The pancreas and adrenal glandsappear unremarkable. Left upper quadrant postsurgical changes. The [...] however within these limits no acute intra-abdominal/pelvic processidentified. 2. 7.3 cm right adnexal lesion for which a pelvic ultrasound is recommended for more complete evaluation. ASSESSMENT: (R10.13) Epigastric pain (primary encounter diagnosis) (Z98.84) S/P biliopancreatic diversion with duodenal switch PLAN: - obtain CT images - UGI series - EGD Follow up after those. She is scheduled with FINANCIAL COORDINATOR for her adnexal cyst Joe Granda MD documented in this encounterGeorgetown [facility] Hospital01-20-2025 NoteHNO ID: [id number] Author: JOE GRANDA MD Service: ? Author Type: Physician Type: Progress Notes Filed: 07/18/2024 14:02 Note Text: VIRTUAL VISIT PROGRESS NOTE This is a virtual visit using [employer] Video Visit. It required patient-provider interaction for the medical decision making as documented below. I have communicated my name and active licensure. The patient's identity and physical location were verified at the time of this visit. Either the patient or their legal sales representative jewelry has been informed of the risks and benefits of -- and alternatives to -- treatment through a remote evaluation and consents to proceed with the evaluation remotely. Susi Ortiz is a 39 year old female seen for abdominal pain. Recent ER visit for this. Is epigastric, worse when she does not eat. Known DS by me, open due to extensive prior surgery. No change to bowel function. No weight loss. Able to take vitamins. . HISTORY REVIEWED (electronic chart updated): PAST MEDICAL HISTORY Diagnosis Date Bipolar disorder (HCC) DDD (degenerative disc disease), lumbar Depression Eczema GERD (gastroesophageal reflux disease) Migraine PAST SURGICAL HISTORY Procedure Laterality Date CHOLECYSTECTOMY HX 06/29/2007 LAP SLEEVE GASTRECTOMY 2017 LAPAROSCOPIC DUODENAL SWITCH SURGERY 08/04/2023 NEUROPLASTY AND/TRANSPOS MEDIAN NRV CARPAL TUNNE 2008;2009 [...] Grandfather Difficulty with anesthesia No Family History Social History Tobacco Use Smoking status: Former Current packs/day: 0.00 Average packs/day: 0.5 packs/day for 5.0 years (2.5 ttl pk-yrs) Types: Cigarettes Start date: 12/27/2008 Quit date: 12/27/2013 Years since quittin.5 Smokeless tobacco: Never Vaping Use Vaping status: Never Used Substance Use Topics Alcohol use: Not Currently Comment: None since 2012 Drug use: Never Current Outpatient Medications Medication Sig tirzepatide (MOUNJARO) 2.5 mg/0.5 mL pen injector Inject 2.5 mg subcutaneously one time a week. metFORMIN ER (GLUCOPHAGE XR) 500 mg 24 [...] for this visit. ALLERGIES Allergen Reactions Adhes. Gshx-Tbwf-Nn* Rash Adhesive Tape-Silic* Rash Augmentin [Amoxicil* Diarrhea Keflex [Cephalexin] Rash, Itching Penicillins Hives Ultram [Tramadol Hc* Itching PHYSICAL EXAMINATION: VIDEO EXAM: (if completed, performed via video enabled technology) GENERAL: alert and appropriate, in no distress and overweight TESTING OSH CT report: indings: Overall evaluation is markedly limited due to [...] in the abdomen or pelvis. The appendix (more content not included)...[facility]12-18-2024 Evaluation note* Diagnosis Onset Date Resolution Status Admit Date Left serous otitis media acute June 15, 2024 6:20pm [facility] Work Phone: 1(876) 527-443912-04-2024 History of Present illness Narrative* Bushra Nevarez, BETY - 06/01/2024 10:45 AM ESTAssociated Order(s): L Inj/Asp: R knee Post-Procedure Diagnose(s): Arthritis of right knee Images from the original note were not included. Subjective Patient ID: Susi Ortiz is a 38 y.o. female. RT knee pain S/p MRI [facility] 05/20/24 RT knee Pt states she fell about 9 weeks ago and fell onto the right knee (she believes on 03/30/24). Flex fell forward landing on both knees onto carpet and she fell hard. She is not sure what happened, she states she just stood up and fell onto the knee. Went to [facility] ER and had xrays, which were negative [...] Sometimes will be 10/10 with sitting. TX: [facility] ER/XR right knee 04/06/24, motrin, ice, depo medrol injection 04/13/24, MRI [facility] 05/20/24 RTknee Objective Ortho Exam Knee Musculoskeletal Exam Gait [...] mri of the right knee done a [facility] on 05/20/24 it is unremarkable for fracture, chondromalacia of the patella is noted. Assessment/Plan Encounter Diagnoses: ICD-10-CM 1. Arthritis of right knee M17.11 2. Right knee pain, unspecified chronicity M25.561 Discussion of options, pt notes she would like an injection, side effects of bleeding and infectiondiscussed, would like to proceed with the injection, using aspectic technique 40 mg of depo medrol was injected into the right lateral knee, pt tolerated well, bandaid applied, may do activities as tolerated, f/u in 2 weeks. Discussed therapy in addition and she will think about it I documented in this encounterSSM [id number] Instructions* Patient Instructions* Karon Monsivais RD - 05/05/2024 11:17 AM [...] AND 1800- 2400 mg calcium citrate daily taken in divided [...] (with skin), brown rice, quinoa -for recipes: https://bariatricmealAltSchool.Simpli.fi/bariatric-recipes/ https://www.bariatricfusion.com/blogs/blog/tagged/bariatric-recipes https://www.Idea Device.com/food-nutrition/e29070821/0-jgptsmr-omleus-meal-prep-r ecipes/ https://www.bariatricmealcoach.Simpli.fi https://www.bariatriceating.com/ https://www.treofoundation.org/cookbook/ Nutrition Monitoring & Evaluation: BMI < 60 Need for Follow up: 3 months, for annual. [phone] documented in this encounterGeorgetown [facility] Hospital11-07-2024 NoteHNO ID: [id number] Author: KARON MONSIVAIS RD Service: ? Author Type: Registered Dietitian Type: Progress Notes Filed: 05/05/2024 11:25 Note Text: [facility] Nutrition Therapy: Virtual Consult - Re-assessment I have communicated my name and active licensure. The patient?s identity and physical location were verified at the time of this visit. Either the patient or their legal sales representative jewelry has been informed of the risks and [...] 60 mg Iron (1x per day) AND 6004-4003 mg calcium citrate daily taken in divided [...] (with skin), brown rice, quinoa -for recipes: https://bariatricmealAltSchool.Simpli.fi/bariatric-recipes/ https://www.bariatricfusion.com/blogs/blog/tagged/bariatric-recipes https://www.prevention.com/food-nutrition/l53300232/9-qzetakf-swaxbz-meal-prep-r ecipes/ https://www.bariatricmealcoach.com https://www.bariatriceating.com/ https://www.treofoundation.org/cookbook/ Nutrition Monitoring AND Evaluation: BMI < 60 Need for Follow up: 3 months, for annual. [phone] PROGRESS: Interval History: Patient presents for follow up MNT 9 months post-op BPD with DS. Since last assessment Patient reports pursuing medical weight management with Dr. Nieto. Currently waiting on insurance approval for [place]. Net weight loss 33 pounds ( 401 lbs initial) 8% TWL Pre-surgery weight: 388 pounds 1 pounds weight loss since last assessment (369 lbs) Patient notes desired weight of <300 pounds Diet recall indicates consistent meal pattern with no missed meals. Meals are balanced, however some inconsistent carb intake. Following Phase 5 diet appropriately. 5393-0669 calories/day - insufficient 110-120 protein intake/day - meeting needs 120 oz+ fluid intake/day - meeting needs Taking all vitamin/minerals. Labs reviewed, note Zinc deficiency and elevated Thiamin Resting Metabolic Rate:2335 Energy needs for weight loss 3854-8045 (10-15 harpreet/kg current weight) Protein needs: 96-128 grams protein per day (1.5 - 2.0 g/kg IBW kg) Exercise - consistent but likely falls below recommendations Nutrition Intervention 11/02/23: 1. Continue to take all recommended vitamin/minerals -ProCare DS/LEIDA Bariatric multivitamin with 60 mg Iron (1x per day) AND 7384-3023 mg calcium citrate daily taken in divided [...] (Premier) OR eggs and sausage Snack - peruvian yogurt Lunch - ham/turkey and cheese roll up Snack - peruvian yogurt Dinner - chicken and green beans, [...] most days and PT (more content not included)...[facility]11-07-2024 History of Present illness Narrative* Karon MonsivaisBRENDON - 05/05/2024 10:54 AM EST [facility] Nutrition Therapy: Virtual Consult - Re-assessment I have communicated my name and active licensure. The patient s identity and physical location wereverified at the time of this visit. Either the patient or their legal sales representative jewelry has been informed of the risks and benefits of -- and alternatives to -- treatment through a remote evaluation andconsents to proceed with the evaluation remotely. Nutrition Diagnosis: Altered Gastrointestinal Tract Function, related to, S/P bariatric surgery, asevidenced by patient update and PSH RECOMMENDED MALNUTRITION [...] AND 1800- 2400 mg calcium citrate daily taken in divided [...] (with skin), brown rice, quinoa -for recipes: https://bariatricmealSpring Metricsp.com/bariatric-recipes/ https://www.bariatricfusion.com/blogs/blog/tagged/bariatric-recipes https://www.Idea Device.com/food-nutrition/y69658453/4-oyhwimn-xnfqvv-meal-prep-r ecipes/ https://www.bariatricmealcoach.com https://www.bariatriceating.com/ https://www.treofoundation.org/cookbook/ Nutrition Monitoring & Evaluation: BMI < 60 Need for Follow up: 3 months, for annual. [phone] PROGRESS: Interval History: Patient presents for follow up MNT 9 months post-op BPD with DS. Since last assessment Patient reports pursuing medical weight management with Dr. Nieto. Currently waiting on insurance approval for [place]. Net weight loss 33 pounds ( 401 lbs initial) 8% TWL Pre-surgery weight: 388 pounds 1 pounds weight loss since last assessment (369 lbs) Patient notes desired weight of <300 pounds Diet recall indicates consistent meal pattern with no missed meals. Meals are balanced, however some inconsistent carb intake. Following Phase 5 diet appropriately. 1312-5667 calories/day - insufficient 110-120 protein intake/day - meeting needs 120 oz+ fluid intake/day - meeting needs Taking all vitamin/minerals. Labs reviewed, note Zinc deficiency and elevated Thiamin Resting Metabolic Rate:2335 Energy needs for weight loss 8347-6768 (10-15 harpreet/kg current weight) Protein needs: 96-128 grams protein per day (1.5 - 2.0 g/kg IBW kg) Exercise - consistent but likely falls below recommendations Nutrition Intervention 11/02/23: 1. Continue to take all recommended vitamin/minerals -ProCare DS/LEIDA Bariatric multivitamin with 60 mg Iron (1x per day) AND 1262-1275 mg calcium citrate daily taken in divided [...] (Premier) OR eggs and sausage Snack - peruvian yogurt Lunch - ham/turkey and cheese roll up Snack - peruvian yogurt Dinner - chicken and green beans, rare carb Snack - sometimes, pickle wrap Beverages - water (120 oz), Zero Sugar Minute Maid (8-10 oz) Alcohol - none Vitamins/Supplements - app[employer]at[employer] Health MVI DS/LEIDA (1), calcium citrate (2300 [...] SIGNATURE: Karon Monsivais RD PATIENT NAME: Susi Naqvi Ortiz DATE: May 05, 2024 TIME: 10:57 AM PAGER: N/A documented in this encounterGeorgetown [facility] Hospital10-30-2024 History of Present illness Narrative* Bushra Nevarez NP - 04/27/2024 11:30 AM EDTAssociated Order(s): L Inj/Asp: L knee Post-Procedure Diagnose(s): [...] the right knee (she believes on 03/30/24). Flex fell forward landing on both knees onto carpet and she fell hard. She is not sure what happened, she states she just stood up and fell onto the knee. Went to [facility] ER and had xrays, which were negative for fracture. She was advised to ice, elevate and take OTC meds and was referred to ortho. Notes she had issues with both knees prior to the fall. Admits constant right anterior knee pain which is aching, worse with weight- bearing ambulation and radiates distally. Pain can be [...] she straightens her knee. States when she straightensher leg she gets a shooting pain deep in the joint. TX: [facility] ER/XR right knee 04/06/24, motrin, ice, depo medrol injection 04/13/24 LT Knee Pt states she fell about 4 weeks ago and fell onto the right knee (she believes on 03/30/24). Flex fell forward landing on both knees onto carpet and she fell hard. She is not sure what happened, she states she just stood up and fell onto the knee. Went to [facility] ER and had xrays, which were negative for fracture. She was advised to ice, elevate and take OTC meds and was referred to ortho. Notes she had issues with both knees prior to the fall. Admits constant left anterior knee pain which is aching, worse with weight- bearing ambulation and radiates distally. Pain can be [...] States when she straightens her leg she getsa shooting pain deep in the joint. TX: [...] f/u s/p MRI to be done at [facility] in [place] In regards to the left knee Discussion of options, pt notes she would like an injection, side effects of bleeding and infectiondiscussed, would like to proceed with the injection, using aspectic technique 40 mg of depo medrol was injected into the left lateral knee, pt tolerated well, bandaid applied, may do activities as tolerated documented in this encounterSSM [id number] History of Present illness Narrative* Sherry Cuellar, PT - 04/19/2024 1:30 PM EDT Physical Therapy Treatment Visit Patient Name: Susi [...] like her to try Pain Management and PTbefore deciding on surgery. Pt states she has been to Pain Management before but always seemed to make pain worse. Precautions: [place] Subjective: Pt states she had injection in [...] to central lumbar region; moderate to severe tendernessto bilateral paraspinals Special Test: LBP with bilateral [...] minutes) Strength, Endurance, Flexibility, ROM, HEP, Neural Mobilization,Power, and Core Stability as needed. Pt instructed [...] CP to lumbar region after ex in supinex 10 minutes Assessment: Pt has completed 7 [...] to be instructed in home exercise program. Halfway Goals: To be met in 10 weeks [...] Please sign below. Date: documented in this encounterSSM [id number] History of Present illness Narrative* Amina Nieto MD - 04/19/2024 11:30 AM EDT I have communicated my name and active licensure. The patient's identity and physical location wereverified at the time of this visit. Either the patient or their legal sales representative jewelry has been informed of the risks and benefits of -- and alternatives to -- treatment through a remote evaluation andconsents to proceed with the evaluation remotely. Name: Susi Ortiz Index Surgery Date of Surgery: 08/04/2023 Surgeon: Joe Granda MD Surgical Procedure: GASTRECTOMY, GASTRIC RESTRICTIVE PARTIAL (50 TO 100 CM COMMON CHANNEL) TO LIMITABSORPTION Pre-surgical weight: 176 kg (388 lb 0.2 [...] loss: 8.985 kg (19 lb 13 oz) [place] weight: 66.1 kg (145 lb 10.6 oz) [...] a meal replacement; also advised to avoid carbonated/sugary/caloric/alcoholic beverages DAILY SUPPLEMENTS: Calcium: Calcium Citrate w/ vitamin D (1200 - 1500mg) Multivitamin & Minerals: Bariatric MVI one a day Procdiana DS Iron Supplement: included in multi-vitamin Vitamin B12: included in multivitamin Vitamin D3: included in multi-vitamin Other: N/A, Biotin EXERCISE: difficult last 2 weeks (her step-dad ), exercising has been hard; before then was walking 2-3 times a week and PT 2 x a week, she plans to ease her way back into this. Doing corestrengthening and suggested d/w PT other strength training [...] Advised to look into Met, Top, phentermine, Wegovyor Zepbound as options. -begun on Metformin at last visit. -labs done 11/19; due for 6 month labs (extended labs) Convo: -drinking enough water, and watching what she eats -still taking Metformin-no side effects or issues. Does have Prediabetes-will try Mounjaro; no personal or family h/o MTC; no h/o pancreatitis; may consider Topamax (has taken before, and didn't workwell/had side effects pituitary tumor); has taken Phentermine before; Contrave-suggested looking into this as well. -follow up approx Jun or Jul with surgeon/Jayshree, as well RD and medical. DISPOSITION: Return 3 month to Post-op follow up/ individual office visit EDUCATION: Encouraged to continue with healthy lifestyle changes and incorporate cardiovascular andresistance training, Discussed weight loss expectations after bariatric [...] which included preparing to see the patient, isvr-ts-qqtl patient care, obtaining and/or reviewing separately obtained history, counseling andeducating the patient/family/caregiver, ordering medications, tests, or procedures, and care coordination (not separately reported). (OTHER): -11/03/23 OV BMI/Nadege CARDIAC: -Procedure Date : Mar 10 2023 EKG Diagnosis: NORMAL SINUS RHYTHM NORMAL ECG documented in this encounterGeorgetown Behavioral Hospital10-22-2024 NoteHNO ID: [id number] Author: AMINA NIETO MD Service: ? Author Type: Physician Type: Progress Notes Filed: 05/13/2024 13:33 Note Text: I have communicated my name and active licensure. The patient's identity and physical location were verified at the time of this visit. Either the patient or their legal sales representative jewelry has been informed of the risks and [...] loss: 8.985 kg (19 lb 13 oz) [place] weight: 66.1 kg (145 lb 10.6 oz) [...] a meal replacement; also advised to avoid carbonated/sugary/caloric/alcoholic beverages DAILY SUPPLEMENTS: Calcium: Calcium Citrate w/ vitamin D (1200 - 1500mg) Multivitamin AND Minerals: Bariatric MVI one a day Coleen DS Iron Supplement: included in multi-vitamin Vitamin [...] Does have Prediabetes-will tr (more content not included)...[facility]10-16-2024 History of Present illness Narrative* Bushra Nevarez, BETY - 04/13/2024 11:45 AM EDT Associated Order(s): L Inj/Asp: R knee Post-Procedure Diagnose(s): Arthritis of right knee Images from the original note were not included. Subjective Patient ID: Susi Ortiz is a 38 y.o. female. B/L Knee pain RT>LT Pt states she fell about 2 weeks ago and fell onto the right knee (she believes on 03/30/24). Statesshe fell forward landing on both knees onto carpet and she fell hard. She is not sure what happened, she states she just stood up and fell onto the knee. Went to [facility] ER and had xrays, which were negative for fracture. She was advised to ice, elevate and take OTC meds and was referred to ortho. Notes she had issues with both knees prior to the fall. Admits constant right anterior knee pain which is aching, worse with weight- bearing ambulation and radiates distally. Pain can be [...] shooting pain deep in the joint. TX: [facility] ER/XR right knee 04/06/24, motrin, ice Objective [...] normal Posterior drawer: normal I reviewed the [facility] er note from 04/06/24, pt fell on 04/02/24 and had been having pain since, dispensed a knee brace and also had xrays done in the er. I reviewed the xrays of the right knee doneon 04/06/24 at [facility] reveals Tricompartment mild degenerative knee arthritis. L [...] f/u in 2 weeks. documented in this encounterSSM [id number] History of Present illness Narrative* Sherry Cuellar, PT - 03/24/2024 1:00 PM EDT Physical Therapy Treatment Visit Patient Name: Susi [...] like her to try Pain Management and PTbefore deciding on surgery. Pt states she has been to Pain Management before but always seemed to make pain worse. Precautions: [place] Subjective: Pt states pain today rates about [...] to central lumbar region; moderate to severe tendernessto bilateral paraspinals Special Test: LBP with bilateral [...] minutes) Strength, Endurance, Flexibility, ROM, HEP, Neural Mobilization,Power, and Core Stability as needed. Pt instructed [...] to be instructed in home exercise program. Lorry Weigher Goals: To be met in 10 weeks [...] Please sign below. Date: documented in this encounterSSM [id number] History of Present illness Narrative* Dennise Smith, JOHN - 03/07/2024 2:40 PM EDT Reason for Appointment: Patient ID: Susi Ortiz [...] Oral, Daily cholecalciferol (Vitamin D-3) 1.25 MG (47176 UT) capsule DULoxetine (CYMBALTA) 60 mg, Oral, Daily eletriptan (RELPAX) 20 mg, Oral, Once as needed, May repeat in 2 hours if unresolved. Do not jyyrve65 mg in 24 hours.
Max 3 days a week esomeprazole (NexIUM) [address] capsule 1 capsule, Every 24 hours famotidine (Pepcid) 20 MG tablet TAKE 1 TABLET BY MOUTH AT BEDTIME ONCE DAILY NEEDED ferrous sulfate 325 mg, Oral, Daily RT hydroCHLOROthiazide (HYDRODiuril) 12.5 MG tablet TAKE 1 TABLET BY MOUTH IN THE MORNING EVERY DAY HYDROcodone-acetaminophen ([place]) 5-325 MG tablet 1 tablet, Oral, Every [...] 60 MG tablet Every 12 hours rizatriptan BUILDING CONSTRUCTION IRONWORKER (Maxalt-BUILDING CONSTRUCTION IRONWORKER) 10 MG disintegrating tablet DISSOLVE 1 TABLET [...] Arthralgia of both knees 01/17/2017 Bipolar depression ([facility]) 10/04/2015 DDD (degenerative disc disease), lumbar 10/04/2015 GERD without esophagitis 10/04/2015 Hypokalemia 08/07/2023 Hypophosphatemia ([facility]) 08/07/2023 Morbid obesity ([facility]) 06/10/2017 TONEY on CPAP 10/04/2015 Chronic midline low back pain without sciatica 01/17/2017 S/P bariatric surgery 08/04/2023 Insomnia 11/09/2023 Migraine ([facility]) 11/09/2023 Myalgia 11/09/2023 Sleep apnea 11/09/2023 Muscle spasm 11/09/2023 Tension type headache 11/09/2023 TONEY (obstructive sleep apnea) 11/09/2023 Chronic migraine without aura without status migrainosus, not intractable ([facility]) 11/09/2023 Resolved Ambulatory Problems Diagnosis Date Noted No Resolved Ambulatory Problems Past Medical History: Diagnosis Date Anxiety Bursitis of shoulder Chronic back pain CTS (carpal tunnel syndrome) Depression ([facility]) Eczema Fracture of wrist GERD (gastroesophageal reflux disease) Hypertension ([facility]) Lumbosacral disc disease Migraines ([facility]) Obesity Pituitary tumor RLS (restless legs syndrome) Seborrheic dermatitis HISTORY PAST MEDICAL HISTORY SOCIAL HISTORY Past Medical History: Diagnosis Date Anxiety Bipolar depression ([facility]) Bursitis of shoulder Chronic back pain (herniated disc) CTS (carpal tunnel syndrome) Depression ([facility]) Eczema Fracture of wrist GERD (gastroesophageal reflux disease) Hypertension ([facility]) Lumbosacral disc disease Migraines ([facility]) Obesity Pituitary tumor (3 mm microadenoma) RLS [...] of Onset Thyroid disease Mother Lymphoma Father Salmon Hypertension Father Salmon Diabetes Father Salmon Cancer Father Salmon SURGICAL HISTORY Past Surgical History: Procedure Laterality Date BACK SURGERY 2011, 2012 BARIATRIC SURGERY gastric sleeve BARIATRIC SURGERY 08/04/2023 duodenal switch CARPAL TUNNEL RELEASE 2008, 2009 CARPAL TUNNEL RELEASE Left CARPAL TUNNEL RELEASE [...] nursing note reviewed. Exam conducted with a early years teacher present. Vitals: Estimated body mass index is 69.83 kg/m as calculated from the following: Height as of this encounter: 5' 4 . Weight as of this encounter: 406 lb 12.8 oz. BP: 120/70 No LMP recorded. Patient has had an implant. ASSESSMENT & PLAN ICD-10-CM 1. Pelvic pain R10.2 US PELVIS-TRANSVAG IF INDICATED HYDROcodone-acetaminophen ([place]) 5-325 MG tablet 2. Right ovarian cyst N83.201 US PELVIS-TRANSVAG IF INDICATED HYDROcodone-acetaminophen ([place]) 5-325 MG tablet Patient presents for follow up ER appointment pelvic pain and right ovarian cyst. Discussed follow up with patient and patient to have repeat US and given scripts for [place]. Patient to setup annual well women appointment in 4 weeks. Documented by Dennise Smith LPN on behalf of: Jamie Harley DO documented in this encounterSSM [id number] History of Present illness Narrative* Sherry Cuellar, PT - 03/04/2024 12:30 PM EDT Physical Therapy Evaluation Visit Patient Name: Susi [...] like her to try Pain Management and PTbefore deciding on surgery. Pt states she has been to Pain Management before but always seemed to make pain worse. Precautions: [place] Subjective: mostly lumbar spine but does radiate out to sides and down a little bit, no c/o pain inbuttock or LE's. Pain: 0-10/10 Objective: PT Evaluation [...] to central lumbar region; moderate to severe tendernessto bilateral paraspinals Special Test: LBP with bilateral [...] minutes) Strength, Endurance, Flexibility, ROM, HEP, Neural Mobilization,Power, and Core Stability as needed. Pt instructed [...] to be instructed in home exercise program. [place] Goals: To be met in 10 weeks [...] Please sign below. Date: documented in this encounterSSM [id number] History of Present illness Narrative* Amina Nieto MD - 11/03/2023 11:00 AM EDT I have communicated my name and active licensure. The patient's identity and physical location wereverified at the time of this visit. Either the patient or their legal sales representative jewelry has been informed of the risks and benefits of -- and alternatives to -- treatment through a remote evaluation andconsents to proceed with the evaluation remotely. Name: Susi Ortiz Index Surgery Date of Surgery: 08/04/2023 Surgeon: Joe Granda MD Surgical Procedure: GASTRECTOMY, GASTRIC RESTRICTIVE PARTIAL (50 TO 100 CM COMMON CHANNEL) TO LIMITABSORPTION Pre-surgical weight: 176 kg (388 lb 0.2 oz) Override Index Surgery Information? No Other Bariatric Surgeries Date of Surgery Surgeon Procedure 03/31/2023 Joe Granda MD LAPAROSCOPY ENTEROLYSIS Visit: 3 months Today's Visit: Wt 167.4 kg (369 lb) BMI 63.34 kg/m2 BMI 63.34 kg/(m^2) Last Visit: Wt: 167.4 kg (369 lb) BMI: 63.34 kg/(m^2) Total weight loss: 8.623 kg (19 lb 0.2 oz) [place] weight: 66.1 kg (145 lb 10.6 oz) Excess weight: 109.9 kg (242 lb 5.6 oz) % of excess body weight lost: 8.623 kg (19 lb 0.2 oz) (7.84% of excess weight loss) COMPLICATIONS SINCE LAST VISIT?: NONE DIET INTAKE: tolerates Phase V diet See recent Social Group Worker appointment -B: protein shake, -snack: [place] bkft -L: ham and cheese -roll up -snack: Oikos -D: chicken -snacks: -beverages: she gets enough fluids in; advised to avoid skipping meals and to try healthy protein shake as a meal replacement; also advised to avoid carbonated/sugary/caloric/alcoholic beverages DAILY SUPPLEMENTS: Calcium: Calcium Citrate w/ [...] with healthy lifestyle changes and incorporate cardiovascular andresistance training, Discussed weight loss expectations after bariatric [...] which included preparing to see the patient, [id number] patient care, obtaining and/or reviewing separately obtained history, counseling andeducating the patient/family/caregiver, ordering medications, tests, or procedures, and care coordination (not separately reported). (OTHER): -11/02/23 OV BMI/Josee Huffman -11/02/23 OV BMI/Nutrition/Kristen Colbert CARDIAC: -Procedure Date : Mar 10 2023 EKG Diagnosis: NORMAL SINUS RHYTHM NORMAL ECG documented in this encounterGe[facility]24 Instructions* Patient Instructions* Jayshree Huffman APRN.CNP - 11/02/2023 4:43 PM EDT Please make a follow up with Dr Nieto for help with further weight loss. You can call the [email or web address] [phone] to schedule. Let me know if you have trouble getting an appointment documented in this encounterGeorgetown Behavioral [facility]05-06-2024 History of Present illness Narrative* Jayshree Huffman APRN.CNP - 11/02/2023 12:52 PM EDT BMI SURGERY Post Op Clinic Note - virtual visit I have communicated my name and active licensure. The patient's identity and physical location wereverified at the time of this visit. Either the patient or their legal sales representative jewelry has been informed of the risks and benefits of -- and alternatives to -- treatment through a remote evaluation andconsents to proceed with the evaluation remotely. November 02, 2023 INTERVAL HISTORY: Susi Ortiz is here for 3 month post op visit. She is feeling well overall, though is concerned she has not lost much weight since her surgery in July Index Surgery Date of Surgery: 08/04/2023 Surgeon: Joe Granda MD Surgical Procedure: GASTRECTOMY, GASTRIC RESTRICTIVE PARTIAL (50 TO 100 CM COMMON CHANNEL) TO LIMITABSORPTION Pre-surgical weight: 176 kg (388 lb 0.2 [...] loss: 8.623 kg (19 lb 0.2 oz) [place] weight: 66.1 kg (145 lb 10.6 oz) [...] deli [place] 3 slices and cheese (cymro 2 slices) Snack yesterday - 000 yogurt [...] the food and beverages she is taking into see if there are hidden sugars / carbs - Follow up with Obesity medicine for help with further weight loss - labs low in iron, vitamin D and zinc. All 3 were sent to the pharmacy - recheck in 3 months - encouraged increased daily activity EDUCATION: Encouraged to continue with healthy lifestyle changes and incorporate cardiovascular andresistance training, Discussed weight loss expectations after bariatric [...] Level: 4 - Moderate documented in this encounterGeorgetown [facility]05-06-2024 Instructions* Patient Instructions* Tania Colbert RD - 11/02/2023 10:34 AM EDT Reviewed nutrition principles of: 1. Continue to take all recommended vitamin/minerals -ProCare DS/LEIDA Bariatric multivitamin with 60 mg Iron (1x per day) AND 9171-2306 mg calcium citrate daily taken in divided [...] Follow up: 6 months post op, scheduling [phone] documented in this encounterGeorgetown [facility]05-06-2024 History of Present illness Narrative* Tania Colbert RD - 11/02/2023 9:45 AM EDT I have communicated my name and active licensure. The patient's identity and physical location wereverified at the time of this visit. Either the patient or their legal sales representative jewelry has been informed of the risks and benefits of -- and alternatives to -- treatment through a remote evaluation andconsents to proceed with the evaluation remotely. Patient [...] IV diet appropriately and eating 5-6 small proteindense meals/snacks daily. Meeting protein needs with variety of protein sources including protein shakes, chicken, yogurt, cheese. Vegetable intake is not consistent. Fluids meet recommendations withprimarily water. Exercise is routine with walking daily however lacks strength/resistance. 1000 calories/day - not meeting needs 100 g protein/day - meets needs >64 oz fluid/day - adequate Taking all vitamin/minerals - Procare DS + 1800 mg calcium citrate/day. Labs reveal low zinc, low iron, low vit D Resting Metabolic Rate: 2344 Energy needs for weight loss 7406-5724 kcal/day (10-15 harpreet/kg current weight) Protein needs: 96-128 grams protein per day (1.2 g/kg IBW kg) Reviewed nutrition principles of: 1. Continue to take all recommended vitamin/minerals -ProCare DS/LEIDA Bariatric multivitamin with 60 mg Iron (1x per day) AND 0103-0784 mg calcium citrate daily taken in divided [...] Follow up: 6 months post op, scheduling [phone] Appointment Start Time: 9:45am Appointment End Time: 10:20am Time Spent on Consult: 35 minutes - Group Tania Colbert RD documented in this encounterGeorgetown [facility]04-23-2024 Nurse Note* Perioperative Nursing Note - Araceli Correa RN - 10/20/2023 11:[address] Carroll assessed during PAT appointment. [facility] Dobleas [id number] Miscellaneous Notes* Perioperative Nursing Note - Araceli Correa RN - 10/20/2023 11:[address] Carroll assessed during PAT appointment. documented in this encounterOhioHealth [facility]04-23-2024 Instructions* Patient Instructions* Araceli Correa RN - 10/20/2023 11:15 AM EDT Preoperative Education Checklist- General Surgery date: 11/04/23 Surgery time: 245p Arrival time: 1245p 1. Bring a photo ID and your insurance card with you the day of surgery. You will check in at the main lobby of the [facility]- registration desk is straight ahead as soon as you walk in. Tell them you are here for surgery. 2. If you have a Living Will/Durable Power of Stock Crane Operator for Health Care that is not on file here, please bring a copy the day of surgery. 3. Please shower/bathe the night before surgery with the provided soap or wipes. Do not shower the morning of surgery- you will do use wipes when you arrive here at the hospital before getting into your surgical gown. Do not shave the area of your procedure for 2 days prior to your surgery. 4. NO powder, lotion, perfume/cologne, aftershave, make-up, deodorant, or hair products after you have bathed. 5. NO nail canadian/acrylic on at least one finger. If you are having a hand, wrist or foot surgery then all nail canadian and artificial/acrylic nails must be removed from that hand or foot. 6. Avoid ALL Aspirin and non-steroidal anti-inflammatory drugs and certain vitamins (Ibuprofen, Advil, Aleve, Excedrin, Meloxicam, Celebrex, fish/krill oil, etc.) for 7 days prior to surgery as instructed by your surgeon and/or your prescribing doctor. Tylenol IS ALLOWED. If you are on Ticlid, Xarelto, Eliquis, Pradaxa, Plavix or Coumadin, please check with your prescribing doctor for instructions for when to stop them. 7. If you use an inhaler, continue to use it routinely. 8. Nothing to eat or drink (not even water, gum, mints, or hard candy!) AFTER midnight prior to your surgery. 9. Take only medications that you are instructed to on the morning of surgery with a TINY SIP OF WATER. 10. Choose a responsible adult that will be able to drive you home when you are discharged from your hospital stay for your surgery and can stay with you in your home for 24 hours after your procedure. You must NOT drive any vehicle or operate any machinery for 24 hours after surgery. 11. When you dress for your appointment, please wear loose fitting clothing that is appropriate to accommodate your surgical area procedure. BRING WITH YOU ANY DEVICES YOU MAY NEED: PANCHO hose, ice machine, sling/swath, brace or special shoe, oversized zip-up or button up shirt, CPAP machine if staying overnight. 12. Do NOT wear jewelry, watches, or any piercings or metal for surgery- leave these valuables and money at home. 13. Do NOT wear contact lenses for surgery- glasses are okay if needed. 14. The anesthesiologist will talk with you the day of surgery and will ask you to sign a Consent Form. 15. Refrain from smoking or any type of tobacco use for at least 8 hours and marijuana for 24 hoursprior to arrival for your surgery. 16. If a GREEN BLOOD band is given to you, please bring it with you for the day of surgery. 17. Notify your surgeon if you develop any illness before your surgery. 18. If you are staying overnight, please DO NOT BRING your home medications with you. 19. If you have any questions prior to surgery, please call the Preadmission Testing office at [phone], Mon.-Fri. 7 a.m.-3 p.m. Leave a voicemail if needed. Pre-Surgery Instructions: Medication Instructions acetaminophen (TYLENOL) 325 mg tablet Stop taking 0 days prior to procedure ARIPiprazole (ABILIFY) 5 mg tablet Stop taking 0 days prior to procedure hydrOXYzine (VISTARIL) 50 mg capsule Stop taking 0 days prior to procedure omeprazole (PriLOSEC) 40 mg capsule Take morning of procedure OXcarbazepine (TRILEPTAL) 300 mg tablet Stop taking 0 days prior to procedure pantoprazole (PROTONIX) 40 mg EC tablet Take morning of procedure VITAMIN PLUS LOW IRON 27 mg iron- 1 mg tablet Stop taking 0 days prior to procedure rizatriptan BUILDING CONSTRUCTION IRONWORKER (MAXALT-BUILDING CONSTRUCTION IRONWORKER) 10 mg disintegrating tablet Stop taking 0 days prior to procedure biotin 10 mg tablet Stop taking 0 days prior to procedure busPIRone (BUSPAR) 15 mg tablet Stop taking 0 days prior to procedure calcium citrate (CALCITRATE) 200 mg (950 mg) tablet Stop taking 0 days prior to procedure cetirizine (ZyrTEC) 10 mg tablet Stop taking 0 days prior to procedure DULoxetine (CYMBALTA) 60 mg capsule Stop taking 0 days prior to procedure famotidine (PEPCID) 20 mg tablet Take morning of procedure hydroCHLOROthiazide (HYDRODIURIL) 12.5 mg tablet Stop taking 0 days prior to procedure lamoTRIgine (LaMICtal) 100 mg tablet Take morning of procedure if needed montelukast (SINGULAIR) 10 mg tablet Stop taking 0 days prior to procedure propranoloL (INDERAL) 60 mg tablet Stop taking 0 days prior to procedure How to Avoid an Infection after Your Surgery Your doctor will give you specific instructions, but remember: -ALWAYS wash hands before caring for your incision. -No picking, scratching, or rubbing your incision. -No creams, lotion, powder, rubbing alcohol or hydrogen peroxide on the incision (can harm the tissue and slow healing). -Your doctor will give you specific instructions for what type of dressing you will need and how often it will need changed for infection purposes. -No tight clothing on incision. -Do not allow anyone to touch your incision unless they are cleaning, checking, or redressing it (be sure they wash their hands first). -No contact of your incision with pets; avoid sleeping with pets. -Take full course of antibiotic if prescribed for you after surgery- do not stop unless directed giovanny your physician. You may also be given an antibiotic prior to your surgery to help prevent surgical site infections. -Eat a healthy and varied diet including proteins, fruits, and vegetables to help promote wound healing and keep blood sugars under control if you are diabetic. -Smoking slows the healing process by decreasing the amount of oxygen in your blood that is needed for tissue healing. Try to avoid or stop smoking if possible. LOOK at your incision each morning and each night to check the progress of healing. Some soreness, numbness, itching and/or mild bruising around the incision is normal. Call your doctor if you noticeany of the following: -Increased redness or hardening around the incision area. -Increased pain at the incision site. -Incision feels hot to the touch. -Swelling or pulling apart of the incision edges. -Yellow or green drainage or foul odor coming from the incision. -Bleeding from the incision (apply pressure as needed). -Fever higher than 101 degrees Fahrenheit for more than 4 hours. SHOWERING: Your doctor will give you specific instructions, but remember: -Be careful getting into and out of the shower. -Showers should be quick (5 minutes or less). -Use a clean washcloth to gently wash your incision with soap and water and pat the area dry with aclean towel. -No re-using wash cloths or towels; get a fresh one to clean your incision. -Do not soak in the bathtub, go swimming or use a hot tub (Jacuzzi), or perform activities where your hand or arm are submerged in water or exposed to any fluids or substances (washing dishes, cooking, gardening, hunting, etc.) until instructed by your doctor. -If your have the sticky strips (steri-strips) over the incision, it is OK to shower with them. Do not remove them. Let them fall off on their own. If you have a question, call your doctor s office. Go to the follow-up appointment with your doctor. documented in this encounterOhioHealth [facility]03-11-2024 History of Present illness Narrative* NathanaelJayshree APRN.BARIATRIC NURSE - 09/07/2023 9:35 AM EDT BMI SURGERY Post Op Clinic Note September [...] (50 TO 100 CM COMMON CHANNEL) TO LIMITABSORPTION Pre-surgical weight: 176 kg (388 lb 0.2 [...] loss: 6.128 kg (13 lb 8.2 oz) [place] weight: 66.1 kg (145 lb 10.6 oz) [...] is keeping it clean and covered. She willcall the office with any changes in drainage [...] scheduled Jayshree Huffman APRN.KATTY documented in this encounterGeorgetown [facility]03-04-2024 Instructions* Patient Instructions* Tania Colbert RD - 08/31/2023 12:14 PM EST Reviewed nutrition principles of: 1. Continue to take all recommended vitamin/minerals - ProCare DS/LEIDA Bariatric multivitamin with 60 mg Iron (1x per day) AND 4052-8240 mg calcium citrate daily 2. Protein goal: [...] yucca, no fruits, no fruit juices, no carbonation,no caffeine, no alcoholic beverages. Continue to consume [...] you first try softer vegetables such as broccoliflorets, [place] lettuce, red-leaf lettuce or [place] lettuce. Remember to chew vegetables thoroughly (chew 25 times) and swallow only when chewing has made it into a mushy pureed consistency. If you have trouble with gas, avoid eating gas-producing vegetables such as onions, cauliflower, garlic, scallions, leeks, [place] sprouts and cabbage. Avoid starchy vegetables such as potatoes (sweet and white), yams, yucca, plantain and corn at thistime. Nutrition Monitoring & Evaluation: BMI < 60 Criteria: weight check and patient update Need for Follow up: 3 months post op, scheduling [phone] documented in this encounterGeorgetown [facility]03-04-2024 History of Present illness Narrative* Tania Colbert, RD - 08/31/2023 9:45 AM EST I have communicated my name and active licensure. The patient's identity and physical location wereverified at the time of this visit. Either the patient or their legal sales representative jewelry has been informed of the risks and benefits of -- and alternatives to -- treatment through a remote evaluation andconsents to proceed with the evaluation remotely. Patient [...] is not tolerating well - may benefit fromtrying lactose free or plant based option. Beverages [...] Rate: 2308 Energy needs for weight loss 0857-7834 kcal/day (10-15 harpreet/kg current weight) Protein needs: 96-128 grams protein per day (1.2 g/kg IBW kg) Reviewed nutrition principles of: 1. Continue to take all recommended vitamin/minerals - ProCare DS/LEIDA Bariatric multivitamin with 60 mg Iron (1x per day) AND 5732-9222 mg calcium citrate daily 2. Protein goal: [...] [place]ucca, no fruits, no fruit juices, no carbonation,no caffeine, no alcoholic beverages. Continue to consume [...] you first try softer vegetables such as broccoliflorets, [place] lettuce, red-leaf lettuce or [place] lettuce. Remember to chew vegetables thoroughly (chew 25 times) and swallow only when chewing has made it into a mushy pureed consistency. If you have trouble with gas, avoid eating gas-producing vegetables such as onions, cauliflower, garlic, scallions, leeks, [place] sprouts and cabbage. Avoid starchy vegetables such as potatoes (sweet and white), yams, yucca, plantain and corn at thistime. Nutrition Monitoring & Evaluation: BMI < 60 Criteria: weight check and patient update Need for Follow up: 3 months post op, scheduling [phone] Appointment Start Time: 9:45am Appointment End Time: 10:35am Time Spent on Consult: 50 minutes - Group Tania Colbert RD documented in this encounterGeorgetown [facility]* Patient Instructions* Karon Monsivais RD - 08/19/2023 12:18 PM EST 1. Continue vitamins Research post-op vitamins for LEIDA/DS procedure: - Bariatric Fusion ADEK Complete Capsule (3x per day) AND 3992-5051 mg calcium citrate OR - Bariatric Advantage High ADEK Chewable Multivitamin (2x per day) AND 6703-0644 mg calcium citrate OR -Celebrate multi-ADEK chewable (3x per day) AND 8826-1830 mg calcium citrate AND 1 chewable Iron 45-60 mg AND OR -ProCare DS/LEIDA Bariatric multivitamin with 60 mg Iron (1x per day) AND 1800- 2400 mg calcium citrate daily 2. Protein goal: 96-128 grams protein/day 3. Fluid goal: 64 ounces per day (no carbonation, caffeine, calories, alcohol) - separate foods andfluids by 20 minutes, small sips, no straw 4. Exercise goal: begin low intensity exercise until cleared by surgeon. 5. Practice mindful eating habits-take small portions, eat slowly, and chew thoroughly You have lost 8% total weight loss (average 6-9% at 1 month) The [facility] has 2 virtual support group meetings: This is the VOLITIONRX link with meeting number that will be used for all of the THURSDAY virtual support groups this year, on the Thursday of each month 5:30-6:30PM Join from the meeting link [email or web address] Join by meeting number Meeting number (access code): [phone] Meeting password: [email or web address] The schedule with dates, times, topics, and facilitators can be found here: [email or web address] This is the VOLITIONRX link with meeting number that will be used for the Open Discussion ( Food for Thought ) support group on the Thursday of each month 5:30-6:30PM Join from the meeting link [email or web address] Join by meeting number Meeting number (access code): [phone] Meeting password: [email or web address] Hope to see you there! Nutrition Monitoring & Evaluation: Advance diet to phase 3 by next visit Criteria: patient recall Need for Follow up: 1 month post op [facility] History of Present illness Narrative* Karon Monsivais RD - 08/19/2023 12:15 PM EST This visit was performed virtually due to [...] The patient s identity and physical location wereverified at the time of this visit. Either the patient or their legal sales representative jewelry has been informed of the risks and benefits of -- and alternatives to -- treatment through a remote evaluation andconsents to proceed with the evaluation remotely. Patient [...] yet taking recommended vitamin/minerals, however plans for Pinevent ADEK + 2000 mg calcium citrate. Exercise includes walking most days. Labs not available to evaluate. Reviewed nutrition principles of: 1. Continue vitamins Research post-op vitamins for LEIDA/DS procedure: - Bariatric Fusion ADEK Complete Capsule (3x per day) AND 7556-8904 mg calcium citrate OR - Bariatric Advantage High ADEK Chewable Multivitamin (2x per day) AND 9495-6501 mg calcium citrate OR -Celebrate multi-ADEK chewable (3x per day) AND 2723-9744 mg calcium citrate AND 1 chewable Iron 45-60 mg AND OR -ProCare DS/LEIDA Bariatric multivitamin with 60 mg Iron (1x per day) AND 1800- 2400 mg calcium citrate daily 2. Protein goal: 96-128 grams protein/day 3. Fluid goal: 64 ounces per day (no carbonation, caffeine, calories, alcohol) - separate foods andfluids by 20 minutes, small sips, no straw 4. Exercise goal: begin low intensity exercise until cleared by surgeon. 5. Practice mindful eating habits-take small portions, eat slowly, and chew thoroughly You have lost 8% total weight loss (average 6-9% at 1 month) The [facility] has 2 virtual support group meetings: This is the VOLITIONRX link with meeting number that will be used for all of the THURSDAY virtual support groups this year, on the Thursday of each month 5:30-6:30PM Join from the meeting link [email or web address] Join by meeting number Meeting number (access code): [phone] Meeting password: [email or web address] The schedule with dates, times, topics, and facilitators can be found here: [email or web address] This is the VOLITIONRX link with meeting number that will be used for the Open Discussion ( Food for Thought ) support group on the Thursday of each month 5:30-6:30PM Join from the meeting link [email or web address] Join by meeting number Meeting number (access code): [phone] Meeting password: [email or web address] Hope to see you there! Nutrition Monitoring & Evaluation: Advance diet to phase 3 by next visit Criteria: patient recall Need for Follow up: 1 month post op Appointment Start Time: 11:45 AM Appointment End Time: 12:15 PM Time Spent on Consult: 30 minutes - Group Karon Monsivais RD documented [facility]Ge[facility] History of Present illness Narrative* Jayshree Huffman APRN.BARIATRIC NURSE - 08/17/2023 9:55 AM EST Assessment BMI Surgical PostOp Clinic Note August 17, 2023 INTERVAL HISTORY: Susi Ortiz is here for 13 day post op visit. 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 No erythema, swelling or tenderness. Leak is at center of incision line. 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 She is keeping itclean and covered with a gauze dressing - Ok to advance diet at 2 weeks post op - reviewed. She has an RD appt this week. She'll start withyogurt/cottage cheese - will begin bariatric vitamins this week and stop b complex - continue lovenox until prescription runs out - continue PPI until 3 months post op (refilled) - refilled zofran Activity: No heavy lifting, pushing, pulling > 10-15 lbs until 4 weeks post op Plan: Next visit 1 month post op visit. Jayshree Huffman APRN.CNP [facility]Ge[facility]24 Miscellaneous Notes* Telephone Encounter - Cynthia Maravilla RN - 08/13/2023 11:43 AM EST BMI SPECIALTY CARE COORDINATION POST-OP TELEPHONE CALL [...] appt. Reminded patient of how to reach [facility] or their surgeons office. Patient reminded to seek medical attention if they develop chest pain, a sudden onset of shortness of breath or persistent pain in the calf of their legs - BEST TO ALWAYS present to [facility] hospital where you had your surgery Patient verbalized understanding of all advice and instructions given. Cynthia Maravilla RN documented in [facility]Ge[facility]02-05-2024 Miscellaneous Notes* Telephone Encounter - Silvia Curry RN - 08/03/2023 4:52 PM EST BMI SPECIALTY CARE COORDINATION SURGERY PRE-OP EDUCATION NOTE Phoned patient to reinforce prior pre-op instruction and answer any questions she might have. No answer. Left brief vmm including contact info for this RN and requested call back. [facility]Ge[facility]10-30-2023 Miscellaneous Notes* Telephone Encounter - Joe Granda MD - 04/27/2023 10:50 AM EDT This patient underwent a diagnostic laparoscopy with some enterolysis when she was intended to havea duodenal switch procedure, completed laparoscopically. My impression was that this was not possible at this time for several reasons. 1 was the severity of her adhesions would require an open operation and likely the assistance of a second staff surgeon because of her complex prior surgical history including a leak after sleeve gastrectomy causing significant intra- abdominal adhesions that werenot amenable to laparoscopic treatment. The second was severe intra-abdominal obesity due to her BMI of 67 that did not allow her ileum to be retracted upwards much at all. Therefore I decided to stop the procedure, continue her on a protein sparing modified fast diet, and return for a planned openduodenal switch operation with the availability of a second staff surgeon for assistance because ofthe severe intra-abdominal adhesions from her prior surgery [...] then. Joe Granda MD [facility]Ge[facility]10-16-2023 History of Present illness Narrative* Tania Colbert RD - 04/13/2023 5:46 PM EDT Patient presented for virtual visit, however she has not yet had bariatric surgery and does not need 2 week post op visit at this time. Will be rescheduled 2 weeks before surgery once scheduled. Tania Colbert RD, SHERITA documented in this encounterGe[facility]09-12-2023 Instructions* Patient Instructions* Shruti Alvarado APRN.BARIATRIC NURSE - 03/10/2023 2:02 PM EDT PATIENT PREOPERATIVE INSTRUCTIONS Joe Granda MD has scheduled you for your procedure at this surgery center: [facility]: [phone] -[phone] [place] [address]. Please check in on the1st floor at registration desk 6. Please read [...] Procedures: - YOU MUST HAVE A RESPONSIBLE SOA ARCHITECT TAKE YOU HOME. A FACSIMILE MACHINE OPERATOR OR COMMERCIAL COORDINATOR CANNOT BE MADE A RESPONSIBLE SOA ARCHITECT. - We recommend that a responsible person stays with you overnight to take care of you. - You cannot stay in a hotel alone after outpatient surgery. You will not be permitted to have yoursurgery, if you do not have someone to [...] Advance Directive, please fax a copy to [phone] or email to for it to be added to your chart. If you do not have an Advance Directive, you can find the appropriate form and more information at [email or web address]. We recommend that youcomplete the Advance Directive form found on the website and bring it with you the day of your surgery. It can be witnessed and scanned into your chart that day. Shruti Alvarado APRN.CNP documented in this encounterGe[facility]09-12-2023 History and physical note * Shruti Alvarado APRN.CNP - 03/10/2023 1:32 PM EDT HISTORY AND PHYSICAL EXAMINATION SERVICE DATE: 03/10/2023 [...] reports some ongoing GERD symptoms that have worsenedsince her bariatric surgery. She is on pantoprazole, [...] medication comments found. ALLERGIES Allergen Reactions Adhes. Oyic-Ahqn-Df* Rash Adhesive Tape-Silic* Rash Augmentin [Amoxicil* Diarrhea Keflex [Cephalexin] Rash, Itching Penicillins Hives Ultram [Tramadol Hc* Itching COVID VACCINATION STATUS: Fully vaccinated REVIEW OF SYSTEMS: PAIN ASSESSMENT: General: No weight loss, malaise or fevers. Neuro: No history of TIA's, stroke, TORTILLA MAKER tumor, impaired sensorium, hemiplegia, paraplegia or quadraplegia. No neurological symptoms or problems. Positive for Migraines on Inderal Respiratory: Positive for TONEY non compliant with CPAP , Negative for No history of current cough ordyspnea, or pneumonia in the past 6 weeks. No history of respiratory/pulmonary symptoms or problems Cardiovascular: No history of HTN requiring medication, no history of angina, CHF, DE, cardiac surgery or stents. Denies rest pain, gangrene or revascularization/amputation for PVD. No history of cardiovascular symptoms or problems. GI: See HPI : No history of dysuria, frequency or incontinence,, stones or chronic kidney disease, No difficulty urinating, nocturia > 1 time per night or hematuria FINANCIAL COORDINATOR: Negative for abnormal vaginal bleeding, abnormal vaginal [...] normal intervals, reviewed by myself., reviewed by automation test developer. All in [facility] Assessment/Plan TONEY on CPAP Assessment: non compliant with CPAP Gastroesophageal reflux disease Assessment: stable on PPI Bipolar affective disorder ([facility]) Assessment: stable on medication Denies any suicidal ideations Morbid obesity with body mass index of 60.0-69.9 in adult ([facility]) Assessment: Body mass index is 68.66 kg/m . Thrombocytosis ([facility]) Assessment: s/p splenectomy in 2014, Elevated Platelet [...] is at least 3 finger breaths, Short neck,Distance from hyoid to mentum during neck extension [...] 2023 TIME: 1:33 PM documented in this encounterGeorgetown [facility]09-07-2023 Instructions* Patient Instructions* Isabela Renee RD - 03/05/2023 1:53 PM EDT Instructions for Liquid Diet before surgery Start the full liquid diet 3 weeks before surgery - Use only the approved protein shakes: 4.5 bottles/day Slim Fast Advanced Nutrition OR 5.5 packets/day Light Start [place] Breakfast Essentials mixed with 1% or skim [...] of protein 3 times per day from poultry,beef, fish, seafood, eggs, cheese, Green[place]ic yogurt, cottage cheese, beans, lentils, tofu. Choose meat products that are tender, shredded and/or ground to increase tolerance. Remember to chew food well, eat slow, take small bites documented in this encounterGeorgetown [facility]09-07-2023 History of Present illness Narrative* Isabela Renee RD - 03/05/2023 12:55 PM EDT I have communicated my name and active licensure. The patient's identity and physical location wereverified at the time of this visit. Either the patient or their legal sales representative jewelry has been informed of the risks and benefits of -- and alternatives to -- treatment through a remote evaluation andconsents to proceed with the evaluation remotely. Patient [...] Advanced Nutrition OR 5.5 packets/day Light Start [place] Breakfast Essentials mixed with 1% or skim [...] of protein 3 times per day from poultry,beef, fish, seafood, eggs, cheese, [place] yogurt, cottage cheese, beans, lentils, tofu. Choose meat products that are tender, shredded and/or ground to increase tolerance. Remember to chew food well, eat slow, take small bites CHANGES IN TREATMENT: Patient met goal(s): Partially Diagnosis: has not changed. Allergies: Adhes. Iagw-Wfqr-Gxliiiczqfzh, Adhesive Tape-Silicones, Augmentin [Amoxicillin- Pot Clavulanate], Keflex [Cephalexin], Penicillins, and Ultram [Tramadol [...] using Slim Fast protein shakes. Patient has allappropriate beverages and B complex supplement. She plans to take Procare ADEK and Ca citrate supple ments after surgery. Nutrition Diagnosis: Overweight/obesity, related to, [...] multivitamin with 15 mg of Zinc & 1-2mg of Copper - Vitamin B-complex with 75-100 [...] 1800- 2400 mg per day Calcium Citrate https://www.bariatricfusion.com/collections/adek/products/bariatric-multivitamin -pbow-ojmg-aqfiddi-with-iron OR - 2 per day Bariatric Advantage High ADEK Multivitamin Capsules AND 0887-8198 mg per day Calcium Citrate AND 45-60 mg per day Iron https://www.Sutus.com/fqbw-xdty-pdriaiidqzde-capsules OR - 2 per day Celebrate Multi-ADEK with Iron Chewable Tablets AND 0321-9198 mg per day Calcium Citrate https://Kypha/products/apxsh-uaii-ulul-iron?oftsmgr=[email or web address] 91 OR -1 per day ProCare DS/LEIDA Bariatric Multivitamin with 60 mg Iron AND 7490-3177 mg per day Calcium Citrate https://DiscountIF/vbsusse-jdbumj-mkjb-walfr-atcvyovup-csjdbphoowqs-capsule- ds-leida/?sku=Irf-JerlIyqrWZ-TDYP-30ct S-LEIAD-30ct Nutrition Monitoring & Evaluation: Follow pre op diet and fluid guidelines Criteria: weight check Need for Follow up: 2 weeks post op Appointment Start Time: 1:00 pm Appointment End Time: 1:21 pm Time Spent on Consult: 21 minutes - Group SIGNATURE: Isabela Renee RD PATIENT NAME: Susi Raineship DATE: 03/05/2023 TIME: 12:55 PM PAGER: documented in this encounterGeorgetown [facility]al Hospital07-10-2023 Miscellaneous Notes* Telephone Encounter - Pao Hodgson RN - 01/05/2023 3:25 PM EDT BMI SPECIALTY CARE COORDINATION SURGERY APPROVAL CALL Received e-mail confirmation of insurance approval for bariatric surgery.Pre- operative call placed to the patient, this RN spoke with patient and agreed upon a surgery date of February 03 2023. Surgical episode request sent to [facility] surgery scheduling. 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 Creatinine level 0.81 Patient instructed to start pre-op 800 calorie total protein liquid diet daily beginning 2 weeks prior to surgery. - Stop all ASA and NSAID products, [place] 3 fish oil, herbal products such as [...] Pt instructed to fax FMLA forms to [phone] and allow 7-10 days for completion. - Deandra video assigned. - All questions and concerns addressed and patient verbalized understanding. - Patient case reviewed. All nutrition appointments completed, psychology clearance obtained, surgeon visit and procedure type verified, medical optimization obtained and all testing complete. 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 Yes, patient has Con ABO. Pao Hodgson RN documented in this encounterGe[facility]06-19-2023 Instructions* Patient Instructions* Isabela Davisn, RD - 12/15/2022 3:28 PM EDT 1. [...] multivitamin with 15 mg of Zinc & 1-2mg of Copper - Vitamin B-complex with 75-100 [...] 1800- 2400 mg per day Calcium Citrate https://www.bariatricfusion.com/collections/adek/products/bariatric-multivitamin -bpzy-onoi-vqwbbzc-with-iron OR - 2 per day Bariatric Advantage High ADEK Multivitamin Capsules AND 3106-7849 mg per day Calcium Citrate AND 45-60 mg per day Iron https://www.bariatricadvantage.com/jsvm-gpni-yzrxtkqdmxpi-capsules OR - 2 per day Celebrate Multi-ADEK with Iron Chewable Tablets AND 9545-1356 mg per day Calcium Citrate https://[employer].Simpli.fi/products/hajqy-scle-ivbm-iron?cklbkdu=304080885896 91 OR -1 per day ProCare DS/LEIDA Bariatric Multivitamin with 60 mg Iron AND 7719-0091 mg per day Calcium Citrate https://DiscountIF/vvzgwst-skslqb-bnme-jtius-vryoiabey-lioknnossaka-capsule- ds-leida/?sku=Idi-OiesTlzjWS-AUPD-30ct S-LEIDA-30ct documented in this encounterGeorgetown Behavioral Hospital06-19-2023 History of Present illness Narrative* Isabela Renee RD - 12/15/2022 3:07 PM EDT [facility] Nutrition Therapy: Virtual Consult - Re-assessment I have communicated my name and active licensure. The patient's identity and physical location wereverified at the time of this visit. Either the patient or their legal sales representative jewelry has been informed of the risks and benefits of -- and alternatives to -- treatment through a remote evaluation andconsents to proceed with the evaluation remotely. Nutrition [...] multivitamin with 15 mg of Zinc & 1-2mg of Copper - Vitamin B-complex with 75-100 [...] 1800- 2400 mg per day Calcium Citrate https://www.bariatricfusion.com/collections/adek/products/bariatric-multivitamin -vula-ojom-doiaekd-with-iron OR - 2 per day Bariatric Advantage High ADEK Multivitamin Capsules AND 4818-8180 mg per day Calcium Citrate AND 45-60 mg per day Iron https://www.bariatricBruxie.Simpli.fi/ydvi-ajcr-ccuwwhliedrs-capsules OR - 2 per day Celebrate Multi-ADEK with Iron Chewable Tablets AND 0993-1287 mg per day Calcium Citrate https://Kypha/products/jipoo-nxsi-hije-iron?riyaoxs=823375680810 91 OR -1 per day ProCare DS/LEIDA Bariatric Multivitamin with 60 mg Iron AND 7035-6836 mg per day Calcium Citrate https://DiscountIF/khixqpf-xawikx-rbtp-bflar-tketlspjj-madfjhwwrhku-capsule- ds-leida/?sku=Bto-LzvdLqotNG-ONKO-30ct S-LEIDA-30ct Nutrition Monitoring & Evaluation: Weight loss [...] ADEK Complete Capsule (3x per day) AND 1080-4621 mg calcium citrate https://www.bariatricfusion.com/collections/adek/products/bariatric-multivitamin -rtjv-eiob-hdtcmzb-with-iron OR - Bariatric Advantage High ADEK Chewable Multivitamin (2x per day) AND 3256-3437 mg calcium citrate https://www.bariatricBruxie.Simpli.fi/pmoe-yhfs-imsriipgtsnm-capsules OR -Celebrate multi-ADEK chewable (3x per day) AND 0022-9120 mg calcium citrate AND 1 chewable Iron 45-60 mg https://Kypha/products/multi-adek?mmyfjsa=3750319568691 OR -ProCare DS/LEIDA Bariatric multivitamin with 60 mg Iron (1x per day) AND 1800- 2400 mg calcium citrate daily https://DiscountIF/ejzrffn-bothhw-munn-ibkae-bzzykrvrc-jhcmfibfydwz-capsule- ds-leida/?sku=Trk-XoahMulbPM-BFBU-30ct 2. Protein goal: 77 grams protein/day. Protein [...] Advanced Nutrition OR 5.5 packets/day Light Start [place] Breakfast Essentials mixed with 1% or skim [...] TIME: 3:08 PM PAGER: documented in this encounterGeorgetown [facility]al Hospital06-17-2023 Evaluation note* Encounter Date Diagnosis Assessment Notes Treatment Notes Treatment Clinical Notes Nov, Acute left ankle pain (ICD-10 [...] that time. Patient verbalized understanding treatment plan. Sgrouples Other 06-07-2023 History of Present illness Narrative* [...] selecting actual surgery date. Heidy Dsouza RN Room Clerk for Cony Soler MD Covering for Joe Granda MD documented in this encounterGeorgetown Behavioral Hospital02-14-2023 NoteEXAMINATION: XR CHEST 2 V HISTORY: [...] Electronically authenticated by: DARREL NICHOLS Date: 2022-08-12 15:04[facility]12-07-2022 Instructions* Patient Instructions* Amina Nieto MD - 06/04/2022 6:53 PM EST INSTRUCTIONS: 1) Please contact me (Dr. Nieto) if you have not heard about your test results within a few days after you had them done. Thank you: Contact information: [facility] M[facility]/Attention: Dr. Nieto [address] [place] [address] 2) Please check with your insurance company regarding cost/coverage of any tests ordered prior to having them completed. Edinson Milesenship , Thank you for completing your visit today and we welcome you to the surgical program. We are sure that you will still have some additional questions and encourage you to reach out to your care provider via [email or web address] OR your Patient Navigator. Patient Navigators are assigned alphabetically by patient last name. The contact information for each Navigator is listed below. Last names A-E= BushraMike Last names F-L = JoannaMike Last names [...] free to ask for a hard copy. [email or web address] Once you complete all of the requirements (testing, consultations, diet, etc) from each provider, please call [phone] and select option #5 to initiate insurance approval. Please note scheduling information It is important to keep track of your scheduled appointments to ensure successful completion of oursurgical program. Any missed appointments can further delay your pre-surgical work-up. [facility] does offer an opt-in option for getting text message appointment reminders. Please follow the link below if you would like to opt into this service. [email or web address] As part of your surgical work up, [...] You may call your local [facility] to get an appointment. - Lab work- No appointment is needed for this, you may complete at any [facility].These are usually fasting labs, please be sure to fast (only water permitted) for 10-12 hours priorto the test. -Sleep Study- Please call [phone] or [phone] to get this appointment set up. -Sleep Medicine Consult- (Only needed if sleep study confirms sleep apnea) Please call [phone] to schedule an appointment. Any testing that is completed outside of [facility] will need faxed to [phone]. 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 No paresthesias/temperature sensation changes or disturbances/weakness/h/o CVA [...] -she had labs done at her local facility-[facility]; check remaining presurgical labs, CXR, EKG (had recent CT abd); will try to get the labs from [place]; Will mail her orders so she can get them done locally and try to obtain recent labs from [facility] 2)Sleep disordered breathing: external sleep study scanned in [facility]-+TONEY -check sleep study and refer to Sleep medicine-she will try to have these done locally. Amina Nieto MD I spent a total of 45 minutes on the date of the service which included preparing to see the patient, uclt-po-wyfx patient care, completing clinical documentation, obtaining and/or reviewing separately obtained history, counseling and educating the patient/family/caregiver, ordering medications, keli ts, or procedures, and care coordination (not separately reported). documented in this encounterGe[facility]11-16-2022 Miscellaneous Notes* Telephone Encounter - Pao [...] better option for her for weight loss long-term. Pao Hodgson RN * Telephone Encounter - Jessica Rodriguez - 05/01/2022 1:55 PM EDT Pt has questions regarding upcoming surgery PH: [phone] documented in this encounterGeorgetown [facility]11-04-2022 Miscellaneous Notes* Telephone Encounter - Pao [...] AM EDT AMBULATORY TELEPHONE VISIT Susi Naqvi Manuel has consented to this telephone encounter. Persons [...] switch. Joe Granda MD documented in this encounterGe[facility]10-21-2022 Miscellaneous Notes* Telephone Encounter - Pao Hodgson RN - 04/18/2022 1:34 PM EDT [facility] SPECIALTY CARE COORDINATION SURGERY SCHEDULING CALL Received e-mail confirmation of insurance approval for bariatric surgery.Pre- operative call placed to the patient, this RN spoke with patient and agreed upon a surgery date of June 10 2022. Surgical episode request sent to [facility] surgery scheduling. Patient understands that the surgery type is partial gastrectomy with gastrojejunostomy . Creatinine level pending results Patient instructed to start pre-op 800 calorie total protein liquid diet daily beginning 2 weeks prior to surgery provided creatinine is in range. - Stop all ASA and NSAID products, [place] 3 fish oil, herbal products such as [...] Pt instructed to fax FMLA forms to [phone] and allow 7-10 days for completion. Deandra [...] ordered Pao Hodgson RN documented in this encounterGeorgetown Behavioral Hospital10-19-2022 History of Present illness Narrative* Joe [...] which included preparing to see the patient, owlg-cl-wnfw patient care, and completing clinical documentation, test ordering, care coordination. Joe Granda MD documented in this encounterGeorgetown Behavioral Hospital10-19-2022 Evaluation note* Encounter Date Diagnosis Assessment [...] Mar, Right foot pain (ICD-10 - M79.671) [facility] Other 10-14-2022 NotePROCEDURE: XR GI UPPER W [...] Electronically authenticated by: ESTELLA WHITEHEAD Date: 2022-04-11 10:[facility]10-14-2022 NotePROCEDURE: XR GI UPPER W KUB [...] Electronically authenticated by: ESTELLA WHITEHEAD Date: 2022-04-11 10:21[facility]09-29-2022 Evaluation note* Encounter Date Diagnosis Assessment Notes Treatment Notes Treatment Clinical Notes Feb, Gastroesophageal ref lux disease, esophagitis presence not specified (ICD-10 - K21.9) [facility] Other 09-12-2022 History of Present illness Narrative* Joe Granda MD - 03/10/2022 3:37 PM EDT VIRTUAL VISIT PROGRESS NOTE This is a virtual visit using Xceedium video visit. It required patient-provider interaction for [...] which included preparing to see the patient, uptt-mq-lefc patient care, completing clinical documentation, obtaining and/or reviewing separately obtained history, and care coordination (not separately reported) Joe Granda MD documented in this encounterGe[facility] Hospital08-17-2022 NoteHNO ID: [id number] Author: SHIREEN Solo Service: Radiology Author Type: [...] BY: SHIREEN SOLO February 12, 2022 2:58 [facility]MAO[facility] [id number] History of Present illness Narrative* SHIREEN Solo [...] 12, 2022 2:58 PM documented in this encounterGeorgetown Behavioral Hospital08-17-2022 Nurse Note* Elizabeth Stephens RN - [...] 2022 TIME: 2:30 PM documented in this encounterGeorgetown [facility]al Hospital07-25-2022 History of Present illness Narrative* Joe Granda MD - 01/20/2022 2:37 PM EDT VIRTUAL VISIT PROGRESS NOTE This is a virtual visit using Xceedium video visit. It required patient-provider interaction for [...] for this visit. ALLERGIES Allergen Reactions Adhes. Flji-Vmua-Im* Rash Adhesive Tape-Silic* Rash Augmentin [Amoxicil* Diarrhea [...] which included preparing to see the patient, sitw-qr-nqoy patient care, completing clinical documentation, obtaining and/or reviewing separately obtained history, performing a medically appropriate examination, counseling and educating the pat ient/family/caregiver, ordering medications, tests, or procedures, communicating with other HCPs (not separately reported) and care coordination (not separately reported) Joe Granda MD documented in this encounterGeorgetown Behavioral Hospital07-22-2022 History of Present illness Narrative* Karon Monsivais, RD - 01/17/2022 9:12 AM EDT [...] in the AM, 2 in the PM) www.[email or web address] - [employer] [facility]: 1 Bariatric Multivitamin and Calcium Citrate (total of 1200- 1500 mg/day) * take calcium citrate separately from Multivitamin with iron at least 2 hours apart and 4 hours apart from additional calcium www.Stitch.[email or web address] - Bariatric Choice: 4 Complete Multivitamins (chewables) per day Www.[email or web address].fi - Bariatric Advantage: 2 Multivitamins and 3 Calcium Citrate Chewables per day * take calcium citrate separately from Multivitamin with iron at least 2 hours apart and 4 hours apart from additional calcium Www.bariatricadBEST Logistics Technology.Simpli.fi 2. Do not skip meals. 3. Use [...] Slim Fast Advanced Nutrition OR Light Start [place] Breakfast Essentials mixed with 1% or skim [...] intake at meals and snacks Please call [phone], option 5. Leave a message for the navigation team when you are finishedwith all clearances (nutrition, psychology, medical, surgeon) 1.Starting ~3 weeks after surgery take: daily multivitamin Vit D3 3,000 international unit(s) Vit B12 500 mcg Vit B1 20-100 mg Iron 45 mg Calcium CITRATE 2293-9607 mg/day OR It is okay to use combination vitamin/minerals to reduce pill volume. (Examples [employer] [facility] Bariatric Multivitamin- 45 (1) chewable/day AND 2444-7532 mg calcium citrate OR Bariatric Fusion chewable complete bariatric vitamin (2) chews, twice daily. IF DS: - Bariatric Fusion ADEK Complete Capsule (3x per day) AND 8254-0215 mg calcium citrate OR - Bariatric Advantage High ADEK Chewable Multivitamin (2x per day) AND 4226-4836 mg calcium citrate OR -Celebrate multi-ADEK chewable (3x per day) AND 9766-4612 mg calcium citrate AND 1 chewable Iron [...] Advanced Nutrition OR 5.5 packets Light Start [place] Breakfast Essentials mixed with 1% or skim [...] by: Karon Monsivais RD documented in this encounterGeorgetown Behavioral Hospital07-22-2022 Instructions* Patient Instructions* Karon Monsivais RD - 01/17/2022 9:12 AM EDT Please call [phone], option 5. Leave a message for the navigation team when you are finishedwith all clearances (nutrition, psychology, medical, surgeon) 1.Starting ~3 weeks after surgery take: daily multivitamin Vit D3 3,000 international unit(s) Vit B12 500 mcg Vit B1 20-100 mg Iron 45 mg Calcium CITRATE 2416-9327 mg/day OR It is okay to use combination vitamin/minerals to reduce pill volume. (Examples [employer] [facility] Bariatric Multivitamin- 45 (1) chewable/day AND 7610-2477 mg calcium citrate OR Bariatric Fusion chewable complete bariatric vitamin (2) chews, twice daily. IF DS: - Bariatric Fusion ADEK Complete Capsule (3x per day) AND 7273-3768 mg calcium citrate OR - Bariatric Advantage High ADEK Chewable Multivitamin (2x per day) AND 6267-9721 mg calcium citrate OR -Celebrate multi-ADEK chewable (3x per day) AND 6422-8369 mg calcium citrate AND 1 chewable Iron [...] Advanced Nutrition OR 5.5 packets Light Start [place] Breakfast Essentials mixed with 1% or skim [...] up: 2 weeks pre-op documented in this encounterGeorgetown Behavioral Hospital06-22-2022 History and physical note * Joe [...] 1:12 PM PRIMARY CARE PHYSICIAN: Rosaura Estrada, BARIATRIC NURSE, BARIATRIC NURSE This is a virtual visit using alternative [...] Mass Index of 60.0-69.9 in Adult ([facility]) COVID-19 Immunization Status Overdue - COVID-19 VACCINE [...] Negative for: dysuria, frequent urination and hematuria. FINANCIAL COORDINATOR: +amenorrhea with IUD Endocrine: Negative for: diabetes [...] medication comments found. ALLERGIES Allergen Reactions Adhes. Gicb-Znvn-Yj* Rash Adhesive Tape-Silic* Rash Augmentin [Amoxicil* Diarrhea [...] or any previous visit (from the past 32167 hour(s)). Assessment TONEY on CPAP Assessment: not currently using CPAP Thrombocytosis ([facility]) Assessment: s/p splenectomy in 2014, last labs available in CareEverywhere from 01/2021 showing platelets at 488, plan to discuss with Dr. Granda for review. Bipolar affective disorder ([facility]) Assessment: stable on current rx per patient Gastroesophageal reflux disease Assessment: on PPI and sucralfate Morbid obesity with body mass index of 60.0-69.9 in adult ([facility]) Assessment: Body mass index is 66.09 kg/m . [place] Activity Status Index: METS: Climb a flight of stairs or walk up a hill (5.50 METs) DASI Score: 5.5 Patient denies any chest pain or undue shortness of breath with the above physical activity. Clinical Frailty Scale: 3. Well, with treated comorbid disease [id number] Score: Age: <65 Sex: female [id number] Score: 1 ARISCAT Score: Age: <=50 ARISCAT [...] 1:10 PM PAGER/CONTACT #: documented in this encounterGe[facility] Hospital06-09-2022 History of Present illness Narrative* Akosua Peraza RD - 12/05/2021 11:45 AM EDT No show for nutrition appointment on 12/05/21. Signed by: Akosua Peraza RD documented in this encounterGeorgetown Behavioral Hospital05-18-2022 Evaluation note* Encounter Date Diagnosis Assessment [...] sprain elsa e care material was printed [facility] Other 05-11-2022 History of Present illness Narrative* Joe Granda MD - 11/06/2021 9:40 AM EDT Assessment NEW BARIATRIC PATIENT PATIENT NAME: Susi Ortiz REASON FOR CONSULT: Morbid Obesity REQUESTING PHYSICIAN: Eren DATE of SERVICE: 11/06/2021 TIME of SERVICE: 9:40 AM PCP: Rosaura Estrada, BARIATRIC NURSE, BARIATRIC NURSE CC: Morbid Obesity HPI: Ms. Ortiz is [...] use: Never ALLERGIES: ALLERGIES Allergen Reactions Adhes. Jqnp-Qotg-Nv* Rash Adhesive Tape-Silic* Rash Augmentin [Amoxicil* Diarrhea [...] which included preparing to see the patient, cshi-fk-bgtw patient care, completing clinical documentation, obtaining and/or reviewing separately obtained history, ordering medications, tests, or procedures and care coordination (not separately reported). Joe Granda MD documented in this encounterGeorgetown Behavioral Hospital05-09-2022 Instructions* Patient Instructions* Karon Monsivais, BRENDON - 11/04/2021 12:44 PM EDT [...] and 4 hours apart from additional calcium [email or web address] - Bariatric Choice: 4 Complete Multivitamins (chewables) [...] Slim Fast Advanced Nutrition OR Light Start [place] Breakfast Essentials mixed with 1% or skim milk OR Atkins Protein Shakes (15 gm protein version) OR Glucose Controlled Boost Pre-op goal weight: 380 pounds - per Dr. Granda Protein needs: 77 gm per day Nutrition Monitoring & Evaluation: 1-2 # weight loss per week prior to surgery Criteria: Weight check Need for Follow up: 1 month, [phone] documented in this encounterGeorgetown Behavioral Hospital05-09-2022 History of Present illness Narrative* Karon [...] Your Guide to Surgery by next session [email or web address] n 2. Do not skip meals. [...] AM, 2 in the PM). www.bariatricfusion.com - [employer]: 1 Bariatric Multivitamin and Calcium Citrate (total of 1200- 1500 mg/day) * take calcium citrate separately from Multivitamin with iron at least 2 hours apart and 4 hours apart from additional calcium www.DiscountIF - Bariatric Choice: 4 Complete Multivitamins (chewables) per day Www.[email or web address].fi - Bariatric Advantage: 2 Multivitamins and 3 [...] spearmint) Fried, greasy foods Garlic and onions [place] fruits, juices Alcohol Tomato products Spicy foods [...] AM, 2 in the PM) www.bariatricfusion.com - [employer] [facility]: 1 Bariatric Multivitamin and Calcium Citrate (total of 1200- 1500 mg/day) * take calcium citrate separately from Multivitamin with iron at least 2 hours apart and 4 hours apart from additional calcium www.Stitch.[email or web address].fi - Bariatric Choice: 4 Complete Multivitamins (chewables) per day Www.bariatricchoice.[email or web address].fi - Bariatric Advantage: 2 Multivitamins and 3 Calcium Citrate Chewables per day * take calcium citrate separately from Multivitamin with iron at least 2 hours apart and 4 hours apart from additional calcium Www.bariatricadvantage.Simpli.fi 2. Do not skip meals. 3. Use [...] Slim Fast Advanced Nutrition OR Light Start [place] Breakfast Essentials mixed with 1% or skim milk OR Atkins Protein Shakes (15 gm protein version) OR Glucose Controlled Boost Pre-op goal weight: 380 pounds - per Dr. Granda Protein needs: 77 gm per day Nutrition Monitoring & Evaluation: 1-2 # weight loss per week prior to surgery Criteria: Weight check Need for Follow up: 1 month, [phone] Group Appointment Start Time: 11:45 AM Group Appointment End Time: 12:29 PM Time Spent on Consult: 44 minutes - Group Signed by: Karon Monsivais RD documented in this encounterGeorgetown [facility]al Hospital05-02-2022 Evaluation note* Encounter Date Diagnosis Assessment Notes Treatment Notes Treatment Clinical Notes October, Gastroesophageal ref lux disease, esophagitis presence not specified (ICD-10 - K21.9) [facility] Other 04-15-2022 Evaluation note* Encounter Date Diagnosis Assessment Notes Treatment Notes Treatment Clinical Notes Sep, Other d/t progessi vely worsening shortness of breath and hypoxia, patient was recommended to go to ER for higher acuity care [facility] Other 04-07-2022 Evaluation note* Encounter Date Diagnosis [...] ramon lt home care material was printed [facility] Other 04-04-2022 History of Present illness Narrative* 09/30/2021 * 9:15AM * SUSI RAINESHIP , 36 year is contacted for an (audio-visual, or audio only) Telehealth visit. * Today's visit was provided through telemedicine conferencing: Using [employer] platform. * Consent: * The concept of [...] She went in for evaluation with her WELD TECHNICIAN in early January 2021, and was subsequently found to have a complex ovarian cyst. She was taken for surgery at [facility] later that month, and reports that [...] in 2019, which was also performed at [facility]. 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 We are sure that you will still have some additional questions and encourage you to reach out to your care provider via [email or web address] OR your Patient Navigator. Patient Navigators are assigned alphabetically by patient last name. The contact information for each Navigator is listed below. Last names A-E= Malorie Last names F-L = Yoshi Last names M-R= [email or web address] Last names S-Z= Dawson Additionally, you may [...] free to ask for a hard copy. [email or web address] Once you complete all of the requirements (testing, consultations, diet, etc) from each provider, please call [phone] and select option #5 to initiate insurance approval. Please note scheduling information It is important to keep track of your scheduled appointments to ensure successful completion of oursurgical program. Any missed appointments can further delay your pre-surgical work-up. [facility] does offer an opt-in option for getting text message appointment reminders. Please follow the link below if you would like to opt into this service. [email or web address] As part of your surgical work up, [...] follow up visit or rescheduling, Please call [phone] OR [phone] Any testing that is completed outside of [facility] will need faxed to [phone]. We look forward to working with you on this journey, Jayshree Huffman APRN.CNP documented in this encounterGeorgetown Behavioral Hospital03-28-2022 History of Present illness Narrative* Jayshree [...] to severe GERD. Sleeve in 2016 at [facility], in [place]. 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 ALLERGIES Allergen Reactions Adhes. Mfyh-Zqpb-Hc* Rash Adhesive Tape-Silic* Rash Augmentin [Amoxicil* Diarrhea [...] which included preparing to see the patient, zkrr-na-boey patient care, completing clinical documentation, obtaining and/or reviewing separately obtained history, counseling and educating the patient/family/caregiver, ordering medications, keli ts, or procedures and communicating with other HCPs (not separately reported). Medical Decision Making Jayshree Huffman APRN.CNP documented in this encounterGeorgetown [facility]al Hospital11-19-2021 History and physical note * Humza [...] a sleeve gastrectomy done in 2016 at [facility]. Her preop weight was 380 lbs. Max weight loss was 120-125 lbs post op. She has regained all of herweight - this started when she was caring for her father with cancer, during COV, and has worsened since her father . [...] Minimally Invasive General Surgery documented in this encounterCherrington HospitalChief complaint Narrative - Reported* An interactive audio and video telecommunication system which permits real time communications between the patient (at the originating site) and provider (at the distant site) was utilized to providethis telehealth service. * The patient is being seen today for a New Patient Visit regarding Cyst on Right Ovary. CZ-FAPBM-Xbyntpw [facility] Work Phone: Evaluation note* Diagnosis S/P laparoscopic sleeve gastrectomy- Primary TONEY on CPAP Obstructive sleep apnea (adult) (pediatric) Morbid obesity with body mass index of 50 or higher Gastroesophageal reflux disease, unspecified whether esophagitis present Screening for viral disease Special screening examination for unspecified viral disease Other intestinal malabsorption documented in this encounter [facility]* Diagnosis Gastroesophageal reflux disease, unspecified whether esophagitis present- Primary Class 3 severe obesity with serious comorbidity and body mass index (BMI) of 60.0 to 69.9 in adult, unspecified obesity type (HCC) TONEY on CPAP Obstructive sleep apnea (adult) (pediatric) S/P laparoscopic sleeve gastrectomy Bariatric surgery status Postoperative malabsorption Other and unspecified postsurgical nonabsorption documented in this encounter [facility]* Diagnosis Dysphagia, unspecified type- Primary Gastroesophageal reflux disease, unspecified whether esophagitis present History of sleeve gastrectomy documented in [facility] encounter [facility]* Diagnosis History of sleeve gastrectomy- Primary BMI 70 and over, adult (HCC) Body Mass Index 70 and over, adult Dietary counseling and surveillance Dietary surveillance and counseling documented in [facility] encounter [facility]* Diagnosis History of sleeve gastrectomy- Primary Gastric fistula Fistula of stomach or duodenum documented in this encounter [facility]* Diagnosis NO SHOW- Primary documented in this encounter [facility]* Diagnosis TONEY on CPAP Obstructive sleep apnea (adult) (pediatric) Gastroesophageal reflux disease, unspecified whether esophagitis present S/P laparoscopic sleeve gastrectomy Bariatric surgery status documented in this encounter [facility] noteNo InformationNort [facility] Other Evaluation note* Diagnosis Gastroesophageal reflux disease, unspecified whether esophagitis present- Primary BMI 70 and over, adult (HCC) Body Mass Index 70 and over, adult History of sleeve gastrectomy Dietary counseling and surveillance Dietary surveillance and counseling documented in this encounter [facility] note* Diagnosis Epigastric pain- Primary Abdominal pain, epigastric Gastroesophageal reflux disease without esophagitis Esophageal reflux History of sleeve gastrectomy documented in this encounter [facility] note* Diagnosis History of sleeve gastrectomy Gastric fistula Fistula of stomach or duodenum documented in this encounter [facility] note* Diagnosis NO SHOW- Primary documented in this encounter [facility] note* Diagnosis History of sleeve gastrectomy- Primary documented in this encounter [facility] noteNo assessment information [facility] Work Phone: Evaluation note* Diagnosis Gastroesophageal reflux disease, unspecified whether esophagitis present- Primary BMI 70 and over, adult (HCC) Body Mass Index 70 and over, adult documented in this encounter [facility] note* Diagnosis Morbid obesity with body mass index of 60.0-69.9 in adult (HCC)- Primary Morbid obesity Gastroesophageal reflux disease, unspecified whether esophagitis present BMI 70 and over, adult (HCC) Body Mass Index 70 and over, adult Gastroesophageal reflux disease, unspecified whether esophagitis present documented in this encounter [facility] note* Diagnosis Morbid obesity with body mass index of 60.0-69.9 in adult (HCC)- Primary Morbid obesity documented in this encounter [facility] note* Diagnosis Weight disorder- Primary Other symptoms concerning nutrition, metabolism, and development BMI 70 and over, adult (HCC) Body Mass Index 70 and over, adult Preop testing Preoperative examination, unspecified Abnormal weight gain Snoring Other dyspnea and respiratory abnormality Sleep-disordered breathing Other sleep disturbances Fatigue, unspecified type S/P bariatric surgery Bariatric surgery status documented in this encounter [facility] note* Diagnosis Morbid obesity with BMI of 70 and over, adult (HCC)- Primary Morbid obesity documented in this encounter [facility] note* Diagnosis S/P gastric sleeve procedure- Primary Weight gain following gastric bypass surgery BMI 60.0-69.9, adult ([facility]) Body Mass Index 60.0-69.9, adult Dietary counseling and surveillance Dietary surveillance and counseling documented in this encounter [facility] note* Diagnosis Weight gain following gastric bypass surgery- Primary Abnormal weight gain Preop testing Preoperative examination, unspecified Snoring Other dyspnea and respiratory abnormality Sleep-disordered breathing Other sleep disturbances Fatigue, unspecified type S/P bariatric surgery Bariatric surgery status S/P gastric sleeve procedure Dietary counseling and surveillance Dietary surveillance and counseling BMI 60.0-69.9, adult ([facility]) Body Mass Index 60.0-69.9, adult documented in this encounter [facility] note* Diagnosis Pre-op evaluation- Primary Preoperative examination, unspecified Morbid obesity with body mass index of 60.0-69.9 in adult ([facility]) Morbid obesity Gastroesophageal reflux disease, unspecified whether esophagitis present TONEY on CPAP Obstructive sleep apnea (adult) (pediatric) Bipolar affective disorder, remission status unspecified ([facility]) Thrombocytosis Essential thrombocythemia Migraine without status migrainosus, not intractable, unspecified migraine type documented in this encounter [facility] note* Diagnosis Patient left without being seen- Primary Surgical or other procedure not carried out because of patient's decision documented in this encounter [facility] note* Diagnosis S/P gastrointestinal surgery, follow-up exam- Primary Follow-up examination, following other surgery Status post biliopancreatic diversion with duodenal switch Post-operative nausea and vomiting Nausea with vomiting documented in this encounter [facility] note* Diagnosis Impaired intestinal absorption- Primary Unspecified intestinal malabsorption S/P biliopancreatic diversion with duodenal switch Class 3 severe obesity with body mass index (BMI) of 60.0 to 69.9 in adult, unspecified obesity type, unspecified whether serious comorbidity present ([facility]) Dietary counseling and surveillance Dietary surveillance and counseling documented in this encounter [facility] note* Diagnosis S/P bariatric surgery- Primary Bariatric surgery status Body mass index (BMI) 60.0-69.9, adult ([facility]) Dietary counseling and surveillance Dietary surveillance and counseling documented in this encounter [facility] note* Diagnosis S/P gastrointestinal surgery, follow-up exam- Primary Follow-up examination, following other surgery S/P biliopancreatic diversion with duodenal switch Open abdominal incision with drainage, subsequent encounter Impaired intestinal absorption Unspecified intestinal malabsorption Class 3 severe obesity with body mass index (BMI) of 60.0 to 69.9 in adult, unspecified obesity type, unspecified whether serious comorbidity present ([facility]) [facility] Diagnosis S/P bariatric surgery- Primary Bariatric surgery status Impaired intestinal absorption Unspecified intestinal malabsorption Body mass index (BMI) 60.0-69.9, adult ([facility]) Dietary counseling and surveillance Dietary surveillance and counseling documented in this encounter [facility] note* Diagnosis Encounter for surgical aftercare [...] Bariatric surgery status [facility] Diagnosis BMI 60.0-69.9, adult ([facility])- Primary Body Mass Index 60.0-69.9, adult S/P bariatric surgery Bariatric surgery status [facility] Diagnosis Low back pain, unspecified back pain laterality, unspecified chronicity, unspecified whether sciatica present- Primary documented in this encounter [facility]* Diagnosis Low back pain, unspecified back pain laterality, unspecified chronicity, unspecified whether sciatica present- Primary documented in this encounter [facility]* Diagnosis Low back pain, unspecified back pain laterality, unspecified chronicity, unspecified whether sciatica present- Primary documented in this encounter [facility]* Diagnosis Right knee pain, unspecified chronicity- Primary Arthritis of right knee documented in this encounter [facility]* Diagnosis Pre-op evaluation- Primary Preoperative examination, unspecified Morbid obesity with body mass index of 60.0-69.9 in adult ([facility]) Morbid obesity Gastroesophageal reflux disease, unspecified whether esophagitis present TONEY on CPAP Obstructive sleep apnea (adult) (pediatric) Bipolar affective disorder, remission status unspecified ([facility]) Thrombocytosis Essential thrombocythemia Migraine without status migrainosus, not intractable, unspecified migraine type Pre-op evaluation- Primary Preoperative examination, unspecified Morbid obesity (HCC) Morbid obesity TONEY on CPAP Obstructive sleep apnea (adult) (pediatric) Thrombocytosis Essential thrombocythemia Bipolar affective disorder, remission status unspecified ([facility]) Gastroesophageal reflux disease, unspecified whether esophagitis present Morbid obesity with body mass index of 60.0-69.9 in adult ([facility]) Morbid obesity Migraine without status migrainosus, not intractable, unspecified migraine type S/P biliopancreatic diversion with duodenal switch- Primary BMI 60.0-69.9, adult ([facility]) Body Mass Index 60.0-69.9, adult Prediabetes Other abnormal glucose S/P bariatric surgery Bariatric surgery status [facility] Diagnosis Low back pain, unspecified back pain laterality, unspecified chronicity, unspecified whether sciatica present- Primary Arthritis of right knee- Primary documented in this encounter [facility]* Diagnosis Arthritis of right knee- Primary Right knee pain, unspecified chronicity Internal derangement of right knee Contusion of right knee, initial encounter Left knee pain, unspecified chronicity Arthritis of left knee documented in this encounter [facility]* Diagnosis Pre-op evaluation- Primary Preoperative examination, unspecified Morbid obesity with body mass index of 60.0-69.9 in adult ([facility]) Morbid obesity Gastroesophageal reflux disease, unspecified whether esophagitis present TONYE on CPAP Obstructive sleep apnea (adult) (pediatric) Bipolar affective disorder, remission status unspecified ([facility]) Thrombocytosis Essential thrombocythemia Migraine without status migrainosus, not intractable, unspecified migraine type Pre-op evaluation- Primary Preoperative examination, unspecified Morbid obesity ([facility]) Morbid obesity TONEY on CPAP Obstructive sleep apnea (adult) (pediatric) Thrombocytosis Essential thrombocythemia Bipolar affective disorder, remission status unspecified ([facility]) Gastroesophageal reflux disease, unspecified whether esophagitis present Morbid obesity with body mass index of 60.0-69.9 in adult ([facility]) Morbid obesity Migraine without status migrainosus, not intractable, unspecified migraine type Impaired intestinal absorption- Primary Unspecified intestinal malabsorption S/P biliopancreatic diversion with duodenal switch Class 3 severe obesity with body mass index (BMI) of 60.0 to 69.9 in adult, unspecified obesity type, unspecified whether serious comorbidity present ([facility]) Dietary counseling and surveillance Dietary surveillance and counseling [facility]* Diagnosis Arthritis of right knee- Primary Right knee pain, unspecified chronicity documented in this encounter [facility]* Diagnosis Low back pain, unspecified back pain laterality, unspecified chronicity, unspecified whether sciatica present- Primary documented in this encounter [facility]* Diagnosis Pelvic pain Right ovarian cyst Other and unspecified ovarian cyst documented in this encounter [facility]* Diagnosis Low back pain, unspecified back pain laterality, unspecified chronicity, unspecified whether sciatica present- Primary documented in this encounter [facility]* Diagnosis Pre-op evaluation- Primary Preoperative examination, unspecified Morbid obesity with body mass index of 60.0-69.9 in adult ([facility]) Morbid obesity Gastroesophageal reflux disease, unspecified whether esophagitis present TONEY on CPAP Obstructive sleep apnea (adult) (pediatric) Bipolar affective disorder, remission status unspecified ([facility]) Thrombocytosis Essential thrombocythemia Migraine without status migrainosus, not intractable, unspecified migraine type Pre-op evaluation- Primary Preoperative examination, unspecified Morbid obesity ([facility]) Morbid obesity TONEY on CPAP Obstructive sleep apnea (adult) (pediatric) Thrombocytosis Essential thrombocythemia Bipolar affective disorder, remission status unspecified ([facility]) Gastroesophageal reflux disease, unspecified whether esophagitis present Morbid obesity with body mass index of 60.0-69.9 in adult ([facility]) Morbid obesity Migraine without status migrainosus, not intractable, unspecified migraine type Epigastric pain- Primary Abdominal pain, epigastric S/P biliopancreatic diversion with duodenal switch [facility] Right ovarian cyst Other and unspecified ovarian cyst Follow-up exam Unspecified follow-up examination documented in this encounter [facility]* Diagnosis Pelvic mass in female- Primary Morbid obesity ([facility]) Morbid obesity [facility]* Diagnosis Preop examination- Primary Unspecified pre-operative examination BMI 60.0-69.9, adult ([facility]) documented in this encounter [facility]* Diagnosis Pelvic mass in female- Primary Right ovarian cyst Other and unspecified ovarian cyst Preop testing Unspecified pre-operative examination documented in this encounter [facility]* Diagnosis Pre-op evaluation- Primary Preoperative examination, unspecified Morbid obesity with body mass index of 60.0-69.9 in adult ([facility]) Morbid obesity Gastroesophageal reflux disease, unspecified whether [...] thrombocythemia Bipolar affective disorder, remission status unspecified ([facility]) Gastroesophageal reflux disease, unspecified whether esophagitis present Morbid obesity with body mass index of 60.0-69.9 in adult ([facility]) Morbid obesity Migraine without status migrainosus, not intractable, unspecified migraine type Impaired intestinal absorption- Primary Unspecified intestinal malabsorption S/P biliopancreatic diversion with duodenal switch Class 3 severe obesity with body mass index (BMI) of 60.0 to 69.9 in adult, unspecified obesity type, unspecified whether serious comorbidity present ([facility]) Dietary counseling and surveillance Dietary surveillance and counseling documented in this encounter [facility] note* Diagnosis Pre-op evaluation- Primary Preoperative examination, unspecified Morbid obesity with body mass index of 60.0-69.9 in adult ([facility]) Morbid obesity Gastroesophageal reflux disease, unspecified whether esophagitis present TONEY on CPAP Obstructive sleep apnea (adult) (pediatric) Bipolar affective disorder, remission status unspecified ([facility]) Thrombocytosis Essential thrombocythemia Migraine without status migrainosus, not intractable, unspecified migraine type Pre-op evaluation- Primary Preoperative examination, unspecified Morbid obesity ([facility]) Morbid obesity TONEY on CPAP Obstructive sleep apnea (adult) (pediatric) Thrombocytosis Essential thrombocythemia Bipolar affective disorder, remission status unspecified ([facility]) Gastroesophageal reflux disease, unspecified whether esophagitis present Morbid obesity with body mass index of 60.0-69.9 in adult ([facility]) Morbid obesity Migraine without status migrainosus, not intractable, unspecified migraine type S/P biliopancreatic diversion with duodenal switch- Primary BMI 60.0-69.9, adult ([facility]) Body Mass Index 60.0-69.9, adult Prediabetes Other abnormal glucose S/P bariatric surgery Bariatric surgery status [facility]* Diagnosis Pelvic mass in female- Primary Morbid obesity ([facility]) Morbid obesity documented [facility] this [facility]* Diagnosis Right ovarian cyst- Primary Other and unspecified ovarian cyst [facility] Diagnosis Migraine without aura and without status migrainosus, not intractable ([facility]/HCC)- [facility] Diagnosis Pre-op evaluation- Primary Preoperative examination, unspecified Morbid obesity with body mass index of 60.0-69.9 in adult (HCC) Morbid obesity Gastroesophageal reflux disease, unspecified whether esophagitis present TONEY on CPAP Obstructive sleep apnea (adult) (pediatric) Bipolar affective disorder, remission status unspecified ([facility]) Thrombocytosis Essential thrombocythemia Migraine without status migrainosus, not intractable, unspecified migraine type Pre-op evaluation- Primary Preoperative examination, unspecified Morbid obesity (HCC) Morbid obesity TONEY on CPAP Obstructive sleep apnea (adult) (pediatric) Thrombocytosis Essential thrombocythemia Bipolar affective disorder, remission status unspecified ([facility]) Gastroesophageal reflux disease, unspecified whether esophagitis present Morbid obesity with body mass index of 60.0-69.9 in adult ([facility]) Morbid obesity Migraine without status migrainosus, not intractable, unspecified migraine type S/P biliopancreatic diversion with duodenal switch- Primary BMI 70 and over, adult ([facility]) Body Mass Index 70 and over, adult TONEY (obstructive sleep apnea) Obstructive sleep apnea (adult) (pediatric) [facility]* Diagnosis Pre-op evaluation- Primary Preoperative examination, unspecified Morbid obesity with body mass index of 60.0-69.9 in adult (HCC) Morbid obesity Gastroesophageal reflux disease, unspecified whether esophagitis present TONEY on CPAP Obstructive sleep apnea (adult) (pediatric) Bipolar affective disorder, remission status unspecified ([facility]) Thrombocytosis Essential thrombocythemia Migraine without status migrainosus, not intractable, unspecified migraine type Pre-op evaluation- Primary Preoperative examination, unspecified Morbid obesity (HCC) Morbid obesity TONEY on CPAP Obstructive sleep apnea (adult) (pediatric) Thrombocytosis Essential thrombocythemia Bipolar affective disorder, remission status unspecified ([facility]) Gastroesophageal reflux disease, unspecified whether esophagitis present Morbid obesity with body mass index of 60.0-69.9 in adult ([facility]) Morbid obesity Migraine without status migrainosus, not intractable, unspecified migraine type S/P biliopancreatic diversion with duodenal switch- Primary BMI 70 and over, adult ([facility]) Body Mass Index 70 and over, adult TONEY (obstructive sleep apnea) Obstructive sleep apnea (adult) (pediatric) documented in this encounter [facility] note* Diagnosis Pre-op evaluation- Primary Preoperative examination, unspecified Morbid obesity with body mass index of 60.0-69.9 in adult ([facility]) Morbid obesity Gastroesophageal reflux disease, unspecified whether esophagitis present TONEY on CPAP Obstructive sleep apnea (adult) (pediatric) Bipolar affective disorder, remission status unspecified ([facility]) Thrombocytosis Essential thrombocythemia Migraine without status migrainosus, not intractable, unspecified migraine type Pre-op evaluation- Primary Preoperative examination, unspecified Morbid obesity (HCC) Morbid obesity TONEY on CPAP Obstructive sleep apnea (adult) (pediatric) Thrombocytosis Essential thrombocythemia Bipolar affective disorder, remission status unspecified ([facility]) Gastroesophageal reflux disease, unspecified whether esophagitis present Morbid obesity with body mass index of 60.0-69.9 in adult ([facility]) Morbid obesity Migraine without status migrainosus, not intractable, unspecified migraine type Eating disorder, unspecified type- Primary Psychological factors affecting medical condition Psychic factors associated with diseases classified elsewhere Class 3 obesity ([facility]) documented in this encounter [facility] note* Diagnosis Pre-op evaluation- Primary Preoperative examination, unspecified Morbid obesity with body mass index of 60.0-69.9 in adult ([facility]) Morbid obesity Gastroesophageal reflux disease, unspecified whether esophagitis present TONEY on CPAP Obstructive sleep apnea (adult) (pediatric) Bipolar affective disorder, remission status unspecified ([facility]) Thrombocytosis Essential thrombocythemia Migraine without status migrainosus, not intractable, unspecified migraine type Pre-op evaluation- Primary Preoperative examination, unspecified Morbid obesity ([facility]) Morbid obesity TONEY on CPAP Obstructive sleep apnea (adult) (pediatric) Thrombocytosis Essential thrombocythemia Bipolar affective disorder, remission status unspecified ([facility]) Gastroesophageal reflux disease, unspecified whether esophagitis present Morbid obesity with body mass index of 60.0-69.9 in adult ([facility]) Morbid obesity Migraine without status migrainosus, not intractable, unspecified migraine type Impaired intestinal absorption ([facility])- Primary Unspecified intestinal malabsorption S/P biliopancreatic diversion with duodenal switch BMI 70 and over, adult ([facility]) Body Mass Index 70 and over, adult Dietary counseling and surveillance Dietary surveillance and counseling documented in this encounter [facility] note* Diagnosis Pre-op evaluation- Primary Preoperative examination, unspecified Morbid obesity with body mass index of 60.0-69.9 in adult ([facility]) Morbid obesity Gastroesophageal reflux disease, unspecified whether esophagitis present TONEY on CPAP Obstructive sleep apnea (adult) (pediatric) Bipolar affective disorder, remission status unspecified ([facility]) Thrombocytosis Essential thrombocythemia Migraine without status migrainosus, not intractable, unspecified migraine type Pre-op evaluation- Primary Preoperative examination, unspecified Morbid obesity (HCC) Morbid obesity TONEY on CPAP Obstructive sleep apnea (adult) (pediatric) Thrombocytosis Essential thrombocythemia Bipolar affective disorder, remission status unspecified ([facility]) Gastroesophageal reflux disease, unspecified whether esophagitis present Morbid obesity with body mass index of 60.0-69.9 in adult ([facility]) Morbid obesity Migraine without status migrainosus, not intractable, unspecified migraine type APPOINTMENT CANCELLED- Primary [facility]* Diagnosis Pre-op evaluation- Primary Preoperative examination, unspecified Morbid obesity with body mass index of 60.0-69.9 in adult ([facility]) Morbid obesity Gastroesophageal reflux disease, unspecified whether esophagitis present TONEY on CPAP Obstructive sleep apnea (adult) (pediatric) Bipolar affective disorder, remission status unspecified ([facility]) Thrombocytosis Essential thrombocythemia Migraine without status migrainosus, not intractable, unspecified migraine type Pre-op evaluation- Primary Preoperative examination, unspecified Morbid obesity ([facility]) Morbid obesity TONEY on CPAP Obstructive sleep apnea (adult) (pediatric) Thrombocytosis Essential thrombocythemia Bipolar affective disorder, remission status unspecified ([facility]) Gastroesophageal reflux disease, unspecified whether esophagitis present Morbid obesity with body mass index of 60.0-69.9 in adult ([facility] [facility] [place] Morbid obesity Migraine without status migrainosus, not intractable, unspecified migraine type S/P biliopancreatic diversion with duodenal switch- Primary BMI 70 and over, adult ([facility]) Body Mass Index 70 and over, adult TONEY (obstructive sleep apnea) Obstructive sleep apnea (adult) (pediatric) Type 2 diabetes mellitus without complication, without long-term current use of insulin ([facility] documented in this encounter [facility] note* Diagnosis Pre-op evaluation- Primary Preoperative examination, unspecified Morbid obesity with body mass index of 60.0-69.9 in adult ([facility]) Morbid obesity Gastroesophageal reflux disease, unspecified whether esophagitis present TONEY on CPAP Obstructive sleep apnea (adult) (pediatric) Bipolar affective disorder, remission status unspecified ([facility]) Thrombocytosis Essential thrombocythemia Migraine without status migrainosus, not intractable, unspecified migraine type Pre-op evaluation- Primary Preoperative examination, unspecified Morbid obesity (HCC) Morbid obesity TONEY on CPAP Obstructive sleep apnea (adult) (pediatric) Thrombocytosis Essential thrombocythemia Bipolar affective disorder, remission status unspecified ([facility] Gastroesophageal reflux disease, unspecified whether esophagitis present Morbid obesity with body mass index of 60.0-69.9 in adult ([facility]) Morbid obesity Migraine without status migrainosus, not intractable, unspecified migraine type Eating disorder, unspecified type- Primary Psychological factors affecting medical condition Psychic factors associated with diseases classified elsewhere S/P bariatric surgery Bariatric surgery status documented in this encounter [facility] note* Diagnosis Pre-op evaluation- Primary Preoperative examination, unspecified Morbid obesity with body mass index of 60.0-69.9 in adult ([facility]) Morbid obesity Gastroesophageal reflux disease, unspecified whether esophagitis present TONEY on CPAP Obstructive sleep apnea (adult) (pediatric) Bipolar affective disorder, remission status unspecified ([facility] Thrombocytosis Essential thrombocythemia Migraine without status migrainosus, not intractable, unspecified migraine type Pre-op evaluation- Primary Preoperative examination, unspecified Morbid obesity (HCC) Morbid obesity TONEY on CPAP Obstructive sleep apnea (adult) (pediatric) Thrombocytosis Essential thrombocythemia Bipolar affective disorder, remission status unspecified ([facility]) Gastroesophageal reflux disease, unspecified whether esophagitis present Morbid obesity with body mass index of 60.0-69.9 in adult ([facility]) Morbid obesity Migraine without status migrainosus, not intractable, unspecified migraine type S/P biliopancreatic diversion with duodenal switch- Primary Dietary counseling and surveillance Dietary surveillance and counseling Type 2 diabetes mellitus without complication, without long-term current use of insulin ([facility] documented in this encounter [facility] note* Diagnosis Pre-op evaluation- Primary Preoperative examination, unspecified Morbid obesity with body mass index of 60.0-69.9 in adult ([facility]) Morbid obesity Gastroesophageal reflux disease, unspecified whether esophagitis present TONEY on CPAP Obstructive sleep apnea (adult) (pediatric) Bipolar affective disorder, remission status unspecified ([facility]) Thrombocytosis Essential thrombocythemia Migraine without status migrainosus, not intractable, unspecified migraine type Pre-op evaluation- Primary Preoperative examination, unspecified Morbid obesity (HCC) Morbid obesity TONEY on CPAP Obstructive sleep apnea (adult) (pediatric) Thrombocytosis Essential thrombocythemia Bipolar affective disorder, remission status unspecified ([facility]) Gastroesophageal reflux disease, unspecified whether esophagitis present Morbid obesity with body mass index of 60.0-69.9 in adult ([facility]) Morbid obesity Migraine without status migrainosus, not intractable, unspecified migraine type S/P biliopancreatic diversion with duodenal switch BMI 70 and over, adult ([facility]) Body Mass Index 70 and over, adult TONEY (obstructive sleep apnea) Obstructive sleep apnea (adult) (pediatric) Type 2 diabetes mellitus without complication, without long-term current use of insulin ([facility] [place] documented in this encounter [facility] note* Diagnosis Pre-op evaluation- Primary Preoperative examination, unspecified Morbid obesity with body mass index of 60.0-69.9 in adult ([facility]) Morbid obesity Gastroesophageal reflux disease, unspecified whether esophagitis present TONEY on CPAP Obstructive sleep apnea (adult) (pediatric) Bipolar affective disorder, remission status unspecified ([facility]) Thrombocytosis Essential thrombocythemia Migraine without status migrainosus, not intractable, unspecified migraine type Pre-op evaluation- Primary Preoperative examination, unspecified Morbid obesity ([facility]) Morbid obesity TONEY on CPAP Obstructive sleep apnea (adult) (pediatric) Thrombocytosis Essential thrombocythemia Bipolar affective disorder, remission status unspecified ([facility] Gastroesophageal reflux disease, unspecified whether esophagitis present Morbid obesity with body mass index of 60.0-69.9 in adult ([facility]) Morbid obesity Migraine without status migrainosus, not intractable, unspecified migraine type NO SHOW- Primary documented in this encounter [facility] note* Diagnosis Pre-op evaluation- Primary Preoperative examination, unspecified Morbid obesity with body mass index of 60.0-69.9 in adult ([facility]) Morbid obesity Gastroesophageal reflux disease, unspecified whether esophagitis present TONEY on CPAP Obstructive sleep apnea (adult) (pediatric) Bipolar affective disorder, remission status unspecified ([facility]) Thrombocytosis Essential thrombocythemia Migraine without status migrainosus, not intractable, unspecified migraine type Pre-op evaluation- Primary Preoperative examination, unspecified Morbid obesity ([facility]) Morbid obesity TONEY on CPAP Obstructive sleep apnea (adult) (pediatric) Thrombocytosis Essential thrombocythemia Bipolar affective disorder, remission status unspecified ([facility] [place]) Gastroesophageal reflux disease, unspecified whether esophagitis present Morbid obesity with body mass index of 60.0-69.9 in adult ([facility] [place] Morbid obesity Migraine without status migrainosus, not intractable, unspecified migraine type S/P biliopancreatic diversion with duodenal switch- Primary Dietary counseling and surveillance Dietary surveillance and counseling documented in this encounter [facility] note* Diagnosis Pre-op evaluation- Primary Preoperative examination, unspecified Morbid obesity with body mass index of 60.0-69.9 in adult (HCC) Morbid obesity Gastroesophageal reflux disease, unspecified whether [...] status migrainosus, not intractable, unspecified migraine type Eating disorder, unspecified type- Primary Psychological factors affecting medical condition Psychic factors associated with diseases classified elsewhere Class 3 obesity ([facility] documented in this encounter [facility] note* Diagnosis Onset Date Resolution Status Admit Date Strain of left knee acute Septe er 2024 4:50pm [facility] Work Phone: Hisup[facility]x general Narrative - Reported* Type Description Date [...] X'S 2 Hospitalization History SEE ABOVE SURGERY Sgrouples Other Hiszpef general Narrative - Reported* Type Description Date [...] X'S 2 Hospitalization History SEE ABOVE SURGERY Sgrouples Other InstructionsNot on filedocumented in [facility]ed [facility] filedocumented in [facility] on filedocumented in this encounter [facility] filedocumented in this encounter [facility] System[facility] for referral (narrative)* Diagnostic Procedure Only (Routine) [...] TRC SINGLE CONTRAST STUDY Jayshree Huffman APRN.CNP [address] [place] [address] Xr Imaging Referral ID Status Reason Start Date Expiration Date Visits Requested Visits Authorized [id number] Pending Review Auto-Generat ed Referral 09/23/2021 10/23/2022 1 1 * Outpatient Procedure (Routine) - Pending Review Specialty Diagnoses / Procedures Referred By Tirara somers [facility] Diagnoses TONEY on CPAP Gastroesophageal reflux disease, unspecified whether esophagitis present Class 3 severe obesity with serious comorbidity and body mass index (BMI) of 60.0 to 69.9 in adult, unspecified obesity type (HCC) Postoperative malabsorption Procedures ECG COMPLETE ECG ROUTINE ECG W/LEAST 12 LDS W/I&R Jayshree Huffman APRN.BARIATRIC NURSE [address] [place] [address] [facility] [address] [place] [address] Referral ID Status Reason Start Date Expiration Date Visits Requested Visits Authorized [id number] Pending Review Auto-Generat ed Referral 09/23/2021 09/23/2022 1 1 [facility] for referral (narrative)* Outpatient Procedure (Routine) - Closed Specialty Diagnoses / Procedures Referred By Tiarra somers Referred To Contact [facility] Diagnoses TONEY on CPAP Gastroesophageal reflux disease, unspecified whether esophagitis present S/P laparoscopic sleeve gastrectomy Procedures EGD DIAGNOSTIC ESOPHAGOGASTRODUODENOSCO PY TRANSORAL DIAGNOSTIC Jayshree Huffman APRN.BARIATRIC NURSE [address] [place] [address] [address] Referral ID Status Reason Start Date Expiration Date V isits Requested Visits Authorized [id number] Closed Auto-Generate d Referral 09/24/2021 09/24/2022 1 1 T [facility] for referral (narrative)* Outpatient Procedure (Routine) - Pending Review Specialty Diagnoses / Procedures Referred By Tiarra somers Referred To Contact [facility] Diagnoses Abnormal weight gain Preop testing Snoring Sleep-disordered breathing Fatigue, unspecified type S/P bariatric surgery BMI 70 and over, adult (HCC) Procedures ECG COMPLETE ECG ROUTINE ECG W/LEAST 12 LDS W/I&R Amina Nieto MD [address] [place] [address] [id number] [place] [address] Referral ID Status Reason Start Date Expiration Date Visits Requested Visits Authorized [id number] Pending Review Auto-Generat ed Referral 06/04/2022 05/31/2023 1 1 * Consult, Test, Treat (Routine) - Authorized Specialty Diagnoses / Procedures Referred By Tiarra t Referred To Contact Diagnoses Abnormal weight gain Preop testing Snoring Sleep-disordered breathing Fatigue, unspecified type S/P bariatric surgery BMI 70 and over, adult (HCC) Procedures CONSULT TO SLEEP MEDICINE - ADULT OFFICE/OUTPATIENT NEW HIGH MDM 60-74 MINUTES Amina Nieto MD [address] [place] [address] Referral ID Status Reason Start Date Expiration Date Visits Requested Visits Authorized [id number] Authorized PCP Requested Referral 06/04/2022 05/31/2023 1 1 [facility] for referral (narrative)* Outpatient Procedure (Routine) - Pending Review Specialty Diagnoses / Procedures Referred By Tiarra somers Ref[facility] Diagnoses Pre-op evaluation Morbid obesity with body mass index of 60.0-69.9 in adult (HCC) Gastroesophageal reflux disease, unspecified whether esophagitis present TONEY on CPAP Bipolar affective disorder, remission status unspecified ([facility]) Thrombocytosis Migraine without status migrainosus, not intractable, unspecified migraine type Procedures ECG COMPLETE ECG ROUTINE ECG W/LEAST 12 LDS W/I&R Shruti Alvarado APRN.BARIATRIC NURSE [address] [place] [address] [facility] [address] [place] [address] Referral ID Status Reason Start Date Expiration Date Visits Requested Visits Authorized [id number] Pending Review Auto-Generat ed Referral 03/10/2023 03/09/2024 1 1 [facility] for referral (narrative)* Diagnostic Procedure Only (Routine) - New Request Specialty Diagnoses / Procedures Referred By Tiarra somers Referred To Contact XR IMAGING Diagnoses Epigastric pain Procedures XR UPPER GI SINGLE CONTRAST RADIOLOGIC EXAM UPR GI [place] [address] [place] [address] [place] [address] Referral ID Status Reason Start Date Expiration Date Visits Requested Visits Authorized [id number] New Request Auto-Generat ed Referral 07/18/2024 08/17/2025 1 1 * Outpatient Procedure (Routine) - Authorized Specialty Diagnoses / Procedures Referred By Tiarra somers Referred To Contact [facility] Diagnoses Epigastric pain Procedures EGD DIAGNOSTIC ESOPHAGOGASTRODUODENOSC OP[place] [address] [place] [address] [facility] [address] [place], [place] [address] Referral ID Status Reason Start Date Expiration Date Visits Requested Visits Authorized [id number] Authorized Auto-Generat ed Referral 07/18/2024 07/18/2025 1 1 [facility] for visit Narrative* Outpatient Procedure (Routine) - Closed Specialty Diagnoses / Procedures Referred By Tiarra somers Referred To Contact [facility] Diagnoses TONEY on CPAP Gastroesophageal reflux disease, unspecified whether esophagitis present S/P laparoscopic sleeve gastrectomy Procedures EGD DIAGNOSTIC ESOPHAGOGASTRODUODENOSCO PY TRANSORAL DIAGNOSTIC Jayshree Huffman, REY.BARIATRIC NURSE [address] [place] [address] [facility] [address] [place], [place] [address] Referral ID Status Reason Start Date Expiration Date V isits Requested Visits Authorized [id number] Closed Auto-Generate d Referral 09/24/2021 09/24/2022 1 1 [facility] for visit Narrative* Rehabilitation - Outpatient (Routine) - Authorized Specialty Diagnoses / Procedures Referred By Tiarra t Referred To Contact Physical Therapy Diagnoses Low back pain, unspecified Procedures IN PHYSICAL THERAPY EVALUATION LOW COMPLEX 20 MINS Zohra Roberts MD [address] [place] [address] Phone: tel: fax: [facility] [address] [facility] [place] [address] Phone: tel: fax: Referral ID Status Reason Start Date Expiration Date V isits Requested Visits Authorized [id number] Authorized 02/23/2024 08/21/2024 30 30 [facility] Summary Purpose Family History Relationship Condition Age at Onset Recorded Date/T monica father Malignant neoplasm Unknown Type 2 diabetes mellitus Unknown Diabetes mellitus Unknown Hypertension Unknown Unknown mother Family history of thyroid disease Unknown Advance Directives Documents on File Type Date Recorded Patient Veneer Sander Expl anation ACP-Advance Directive 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 Latest Code Status on File Code Status Date Activated Date Inactivated Comments Full Code 01/16/2017 11:20 PM 01/21/2017 5:23 PM Documents on File Type Date Recorded Patient Veneer Sander Expl anation ACP-Advance Directive 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 Latest Code Status on File Code Status Date Activated Date Inactivated Comments Full Code 01/16/2017 11:20 PM 01/21/2017 5:23 PM Documents on File Type Date Recorded Patient Veneer Sander Expl anation Advance Directive(s) 10/04/2015 12:43 PM Advance Directive(s) 09/25/2015 12:29 PM Documents on File Type Date Recorded Patient Veneer Sander Expl anation Advance Directive(s) 10/04/2015 12:43 PM Advance Directive(s) 09/25/2015 12:29 PM Advance Directive Response Recorded Date/ Time Advance Directives No October 07, 2 019 3:58pm Date Activated Date Inactivated Comments 08/06/2017 6:26 PM 08/18/2017 2:14 PM Date Activated Date Inactivated Comments 08/06/2017 11:21 AM 08/06/2017 6:26 PM Date Activated Date Inactivated Comments 06/10/2017 10:14 AM 06/12/2017 9:36 PM Date Activated Date Inactivated Comments 08/06/2017 6:26 PM 08/18/2017 2:14 PM Date Activated Date Inactivated Comments 08/06/2017 11:21 AM 08/06/2017 6:26 PM Date Activated Date Inactivated Comments 06/10/2017 10:14 AM 06/12/2017 9:36 PM Reason for Referral Status Reason Specialty Diagnoses / Procedures Referre d By Contact Referred To Contact [facility] Rad[facility] Diagnoses S/P laparoscopic sleeve gastrectomy Procedures FL UGI FL UGI Jd, Shaylee, DO [address] [place] [address] Specialty Diagnoses / Procedures Referred By Contac t Referred To Contact Diagnoses S/P laparoscopic sleeve gastrectomy Gastroesophageal reflux disease, unspecified whether esophagitis present Procedures XR FLUORO UPPER GI, WATER SOLUBLE AND/OR BARIUM CONTRAST Humza Walter MD [address] [place], [place] [id number] Referral ID Status Reason Start Date Expiration Date V isits Requested Visits Authorized [id number] Auth Not Needed 05/17/2021 06/11/2022 1 1 Specialty Diagnoses / Procedures Referred By Contac t Referred To Contact Diagnoses S/P laparoscopic sleeve gastrectomy TONEY on CPAP Morbid obesity with body mass index of 50 or higher Gastroesophageal reflux disease, unspecified whether esophagitis present Other intestinal malabsorption Procedures ECG Humza Walter MD [address] [place], [place] [id number] Referral ID Status Reason Start Date Expiration Date V isits Requested Visits Authorized [id number] New Request 05/17/2021 06/11/2022 1 1 Specialty Diagnoses / Procedures Referred By Contac t Referred To Contact Psychology Diagnoses S/P laparoscopic sleeve gastrectomy TONEY on CPAP Morbid obesity with body mass index of 50 or higher Gastroesophageal reflux disease, unspecified whether esophagitis present Other intestinal malabsorption Humza Walter MD [address] [place] [address] Referral ID Status Reason Start Date Expiration Date V isits Requested Visits Authorized [id number] New Request 05/17/2021 06/11/2022 1 1 Specialty Diagnoses / Procedures Referred By Contac t Referred To Contact Nutrition and Dietetics Diagnoses S/P laparoscopic sleeve gastrectomy TONEY on CPAP Morbid obesity with body mass index of 50 or higher Gastroesophageal reflux disease, unspecified whether esophagitis present Other intestinal malabsorption Humza Walter MD [address] [place] [address] Referral ID Status Reason Start Date Expiration Date V isits Requested Visits Authorized [id number] New Request 05/17/2021 06/11/2022 1 1 [facility]ty Diagnoses / [facility] Diagnoses History of sleeve gastrectomy Gastric fistula Procedures CT ABD/PEL W IVCON CT ABD & PELVIS W/[place] [address] [place] [address] Ct Imaging Referral ID Status Reason Start Date Expiration Date Visits Requested Visits Authorized [id number] Pending Review Auto-Generat ed Referral 11/04/2021 12/04/2022 1 1 Specialty Diagnoses / [facility] To Contact XR IMAGING Diagnoses History of sleeve gastrectomy Gastric fistula Procedures XR UPPER GI SINGLE CONTRAST RADIOLOGIC EXAM UPR GI [place] [address] [place] [address] Xr Imaging Referral ID Status Reason Start Date Expiration Date Visits Requested Visits Authorized [id number] Pending Review Auto-Generat ed Referral 11/04/2021 12/04/2022 1 1 Referral ID Status Reason Start Date Expiration Date V isits Requested Visits Authorized [id number] Closed Auto-Generate d Referral 01/05/2022 06/28/2022 2 2 Specialty Diagnoses / Procedures [facility] Referred To Contact Diagnoses BMI 70 and over, adult (HCC) Gastroesophageal reflux disease, unspecified whether esophagitis present Procedures IN PERSON CONSULT TO PACC Jayshree Huffman APRN.CNP [address] [place] [address] Referral ID Status Reason Start Date Expiration Date Visits Requested Visits Authorized [id number] Ref Not Required PCP Requested Referral 2 07/17/2022 1 1 Specialty Diagnoses / Procedures [facility] Referred To Contact Diagnoses BMI 60.0-69.9, adult (HCC) S/P bariatric surgery S/P biliopancreatic diversion with duodenal switch Prediabetes Amina Nieto MD [address] [place] [address] Referral ID Status Reason Start Date Expiration Date V isits Requested Visits Authorized [id number] Pending Review 04/19/2024 06/18/2024 1 1 Discharge [...] questions, PLEASE call your doctor or the [facility] at documented in [...] Intramuscular Given 12/26/2019 Left Lower For earm Chief Complaint and Reason for Visit Chief Complaint Admit Date Ear pain June 15, 2024 6:20pm Cough, congestion September 05, 2024 1:5 5pm Reason for Visit Admit Date Left serous otitis media June 15, 2024 6:20pm Chief Complaint Admit Date Cough, congestion September 05, 2024 1:5 5pm Unknown October 05, 2024 4:50 pm Reason for Visit Admit Date Nausea and vomiting September 05, 2024 1:5 5pm Viral URI with cough September 05, 2024 1: 55pm Chief Complaint Admit Date Amb Documentation February 13, 2025 11 :16am Left knee pain w/o March 01, 2025 4:50pm Reason for Visit Admit Date Strain of left knee March 01, 2025 4:50pm Additional Source Comments INFORMATION SOURCE (unrecogn ized section and content) DATE CREATED AUTHOR 12/23/2017 [facility] DATE CREATED AUTHOR AUTHOR'S ORGANIZ ATION 03/29/2020 [facility] DATE CREATED AUTHOR AUTHOR'S ORGANIZ ATION 04/07/2020 [facility] DATE CREATED AUTHOR AUTHOR'S ORGANIZ ATION 04/11/2020 [facility] DATE CREATED AUTHOR AUTHOR'S ORGANIZ ATION 10/01/2021 [employer] DATE CREATED AUTHOR AUTHOR'S ORGANIZ ATION 12/11/[address] [facility] DATE CREATED AUTHOR AUTHOR'S ORGANIZ ATION 02/19/2022 [facility] DATE CREATED AUTHOR AUTHOR'S ORGANIZ ATION 11/07/2022 [facility] DATE CREATED AUTHOR AUTHOR'S ORGANIZ ATION 06/11/2024 [facility] DATE CREATED AUTHOR AUTHOR'S ORGANIZ ATION 08/14/2024 [facility] DATE CREATED AUTHOR AUTHOR'S ORGANIZ ATION 08/21/2024 [facility] DATE CREATED AUTHOR AUTHOR'S ORGANIZ ATION 09/09/2024 [facility] DATE CREATED AUTHOR AUTHOR'S ORGANIZ ATION 09/16/[address] [facility] EPIC DATE CREATED AUTHOR AUTHOR'S ORGANIZ ATION 10/09/2024 [facility] DATE CREATED AUTHOR AUTHOR'S ORGANIZ ATION 02/08/2025 [facility] DATE CREATED AUTHOR AUTHOR'S ORGANIZ ATION 02/16/2025 [facility] DATE CREATED AUTHOR AUTHOR'S ORGANIZ ATION 02/25/2025 [facility] Reason for Visit (unrecogniz ed section and content) Status Reason Specialty Diagnoses / Procedures Re ferred By Contact Referred To Contact Diagnoses Obesity OBESITY Procedures IN ESOPHAGOGASTRODUODENOSCOPY TRANSORAL DIAGNOSTIC EGD ESOPHAGOGASTRODUODENOSCOPY Kylah Vargas, [address] [facility] [address] [place] [address] [facility] Reason Comments Consult Est Care/Revision/ S leeve 05/2017 Reason Comments Obesity GERD Reason Onset Date Comments Reassessment 11/04/2021 Patient Education 11/04/2021 Reason Comments New Patient Reason Comments No Show Reason Onset Date Comments Reassessment 01/17/2022 Patient Education 01/17/2022 Specialty Diagnoses / Procedures Referred By Contac t Referred To Contact Nutrition / GENERAL SURGERY Diagnoses Follow-up exam Orange[place]ple/0 diet/[place]/05/2017 LSG-complications gerd Procedures PHYS/QHP TELEPHONE EVALUATION 5-10 MIN VIDEO GROUP (ZOOM) MD Yodit Jason Erin, RD [address] [place] [address] Referral ID Status Reason Start Date Expiration Date Visits Re quested Visits Authorized [id number] Closed 01/17/2022 06/28/2022 1 1 Reason Comments Obesity Specialty Diagnoses / Procedures Referred By Contac t Referred To Contact General Surgery / GENERAL SURGERY Diagnoses Follow-up exam imaging follow up Procedures PHYS/QHP TELEPHONE EVALUATION 5-10 [place] [address] [place] [address] [place] [address] [place] [address] Referral ID Status Reason Start Date Expiration Date Visits Re quested Visits Authorized [id number] Closed 01/20/2022 06/28/2022 1 1 Specialty Diagnoses / Procedures Referred By Contac t Referred To Contact CT IMAGING Diagnoses History of sleeve gastrectomy Gastric fistula Procedures CT ABD/PEL W IVCON CT ABD & PELVIS [place] [address] [place] [address] Ct Imaging Referral ID Status Reason Start Date Expiration Date V isits Requested Visits Authorized [id number] Closed Auto-Generate d Referral 01/05/2022 06/28/2022 2 [...] CONSULT TO SLEEP MEDICINE - ADULT OFFICE/OUTPATIENT [facility] 60-74 MINUTES Amina Nieto MD [address] [place] [address] Referral ID Status Reason Start Date Expiration Date V isits Requested Visits Authorized [id number] Closed PCP Requested Referral 06/04/2022 05/31/2023 1 1 Reason Comments Anesthesia Consult Specialty Diagnoses / Procedures Referred By Contac t Referred To Contact ANESTHESIOLOGY Diagnoses Preop examination Procedures PREOP ANES OR PROXY B/4 SURG Joe Granda MD [address] [place] [address] Pre Anes Main [address] [place] [address] Referral ID Status Reason Start Date Expiration Date V isits Requested Visits Authorized [id number] Authorized 06/29/2022 06/28/2023 99 99 Reason Comments Patient Left Without Being Seen Specialty Diagnoses / Procedures Referred By Contac t Referred To Contact ANESTHESIOLOGY Diagnoses Preop examination Procedures PREOP ANES OR PROXY B/4 SURG Joe Granda MD [address] [place] [address] Pre Anes Main [address] [place] [address] Reason Comments Post Op Reason Comments Post Op 7-10 day gastrectomy Reason Comments Post Op S/p BPD/DS 08/04/23 Reason Comments Follow Up Weight Loss Surgery Reason Comments Refill Request Specialty Diagnoses / Procedures Referred By Contac t Referred To Contact Physical Therapy Diagnoses Low back pain, unspecified Procedures IN PHYSICAL THERAPY EVALUATION LOW COMPLEX 20 MINS Zohra Roberts MD [address] [place] [address] [address] [place] [address] Referral ID Status Reason Start Date Expiration Date V isits Requested Visits Authorized [id number] Authorized 02/23/2024 08/21/2024 30 30 Reason Onset [...] from school and needed to 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 She said she will be here next week for PT. Reason Comments Follow-up Reason Onset Date Comments CX PT today 03/10/2024 She called karlene read having health issues and unable to make PT today; I reminded of PT 03/15 and she said if unable she'll contact. Reason Comments right side pelvic pain Reason Comments Abdominal Pain Reason Comments ER Follow-up Reason Comments New Patient Reason Comments Follow Up Reason Onset Date Comments Procedure 08/11/2024 Reason Onset Date Comments Appointment 08/25/2024 Reason Comments Migraine Reason Comments Orders Room Clerk - Other Reason Comments Appointment Cancelled Reason Comments Follow Up Reason Comments Patient Education Reassessment Reason Comments Med Change Request Care Teams (unrecognized sec tion and content) Team Status: Active Member Role Status Dates NON STAFF Primary Care Provider Active Team Status: Active Member Role Status Dates NON STAFF Primary Care Provider Active Start: February 13, 2025 Gemini Sloan Attending Provider Active Start: February 13, 2025 Team Status: Inactive Member Role Status Dates NON STAFF Primary Care Provider Active Start: March 01, 2025 End: March 01, 2025 Araceli Veliz APRN Attending Provider Active S tart: March 01, 2025 End: March 01, 2025 Team Status: Active Member Role Status Dates NON STAFF Primary Care Provider Active Team Status: Inactive Member Role Status Dates NON STAFF Primary Care Provider Active Start: June 15, 2024 End: June 15, 2024 Linda South APRN Attending Provider Active Start: June 15, 2024 End: June 15, 2024 Team Status: Inactive Member Role Status Dates NON STAFF Primary Care Provider Active Start: September 05, 2024 End: September 05, 2024 Araceli Veliz APRN Attending Provider Active S tart: September 05, 2024 End: September 05, 2024 Coal Passer Relationship Specialty Start Date End Date KiesharoroKaylinty, DO [address] [place] [address] PCP - General Family Medicine 03/21/21 Coal Passer Relationship Specialty Start Date End Date Rosaura Estrada, BARIATRIC NURSE [address] [place] [address] PCP - General Family Practice 10/01/11 Coal Passer Relationship Specialty Start Date End Date [facility] BARIATRIC NUR[facility] [address] [place] [address] PCP - General Family Practice 10/01/11 Coal Passer Relationship Specialty Start Date End Date Rosaura Estrada, BARIATRIC NURSE [address] [place] [address] PCP - General Family Practice 10/01/11 Coal Passer Relationship Specialty Start Date End Date [facility], BARIATRIC NURSE [address] [place] [address] PCP - General Family Practice 10/01/11 Coal Passer Relationship Specialty Start Date End Date Rosaura Estrada, BARIATRIC NURSE [address] [place] [address] PCP - General Family Practice 10/01/11 Coal Passer Relationship Specialty Start Date End Date Rosaura Estrada, BARIATRIC NURSE [address] [place] [address] PCP - General Family Practice 10/01/11 Coal Passer Relationship Specialty Start Date End Date Rosaura Estrada, BARIATRIC NURSE [address] [place] [address] PCP - General Family Practice 10/01/11 Coal Passer Relationship Specialty Start Date End Date [facility] BARIATRIC NURSE [address] [place] [address] PCP - General Family Practice 10/01/11 Coal Passer Relationship Specialty Start Date End Date Rosaura Estrada, BARIATRIC NURSE [address] [place] [address] PCP - General Family Practice 10/01/11 Coal Passer Relationship Specialty Start Date End Date [facility] [address] [place] [address] PCP - General Family Practice 10/01/11 Coal Passer Relationship Specialty Start Date End Date LucasshermanRosaura mauro, BARIATRIC NURSE [address] [place] [address] PCP - General Family Practice 10/01/11 Coal Passer Relationship Specialty Start Date End Date LucasRosaura mauro, BARIATRIC NURSE [address] [place] [address] PCP - General Family Medicine 10/01/11 Team Status: Inactive Member Role Status Dates NON STAFF Primary Care Provider Active ROBERT Monteiro Attending Provider Active Coal Passer Relationship Specialty Start Date End Date Elizabet Simental [address] [place] [address] PCP - General Family Medicine 04/16/22 Coal Passer Relationship Specialty Start Date End Date Rumschlag, Elizabet [address] [place] [address] PCP - General Family Medicine 04/16/22 Coal Passer Relationship Specialty Start Date End Date Rumschlag, Elizabet [address] [place] [address] PCP - General Family Medicine 04/16/22 Coal Passer Relationship Specialty Start Date End Date Rumschlag, Elizabet [address] [place] [address] PCP - General Family Medicine 04/16/22 Coal Passer Relationship Specialty Start Date End Date Rumschlag, Elizabet [address] [place] [address] PCP - General Family Medicine 04/16/22 Coal Passer Relationship Specialty Start Date End Date Rumschlag, Elizabet [address] [place] [address] PCP - General Family Medicine 04/16/22 Coal Passer Relationship Specialty Start Date End Date Rumschlag, Elizabet [address] [place] [address] PCP - General Family Medicine 04/16/22 Coal Passer Relationship Specialty Start Date End Date Rumschlag, Elizabet [address] [place] [address] PCP - General Family Medicine 04/16/22 Coal Passer Relationship Specialty Start Date End Date Rumschlag, Elizabet [address] [place] [address] PCP - General Family Medicine 04/16/22 Coal Passer Relationship Specialty Start Date End Date Rumschlag, Elizabet [address] [place] [address] PCP - General Family Medicine 04/16/22 Coal Passer Relationship Specialty Start Date End Date Rumschlag, Elizabet [address] [place] [address] PCP - General Family Medicine 04/16/22 Coal Passer Relationship Specialty Start Date End Date Rumschlag, Elizabet [address] [place] [address] PCP - General Family Medicine 04/16/22 Coal Passer Relationship Specialty Start Date End Date Rumschlag, Elizabet [address] [place] [address] PCP - General Family Medicine 04/16/22 Coal Passer Relationship Specialty Start Date End Date Rumschlag, Elizabet, DO [address] [place] [address] PCP - General Family Medicine 04/16/22 Coal Passer Relationship Specialty Start Date End Date Rumschlag, Elizabet, DO [address] [place] [address] PCP - General Family Medicine 04/16/22 Coal Passer Relationship Specialty Start Date End Date Rumschlag, Elizabet, DO [address] [place] [address] PCP - General Family Medicine 04/16/22 Coal Passer Relationship Specialty Start Date End Date Rumschlag, Elizabet, DO [address] [place] [address] PCP - General Family Medicine 04/16/22 Coal Passer Relationship Specialty Start Date End Date Rumschlag, Elizabet, DO [address] [place] [address] PCP - General Family Medicine 04/16/22 Coal Passer Relationship Specialty Start Date End Date Rumschlag, Elizabet, DO [address] [place] [address] PCP - General Family Medicine 04/16/22 Coal Passer Relationship Specialty Start Date End Date Rumschlag, Elizabet, DO [address] [place] [address] PCP - General Family Medicine 04/16/22 Coal Passer Relationship Specialty Start Date End Date Rumschlag, Elizabet, DO [address] [place] [address] PCP - General Family Medicine 04/16/22 Coal Passer Relationship Specialty Start Date End Date Rumschlag, Elizabet, DO [address] [place] [address] PCP - General Family Medicine 04/16/22 Coal Passer Relationship Specialty Start Date End Date Rumschlag, Elizabet, DO [address] [place] [address] PCP - General Family Medicine 04/16/22 Coal Passer Relationship Specialty Start Date End Date Rumschlag, Elizabet, DO [address] [place] [address] PCP - General Family Medicine 09/16/23 Shaylee Kendall PCP - [facility] [place] [facility] 12/28/23 Coal Passer Relationship Specialty Start Date End Date Rumschlag, Elizabet, DO [address] [place] [address] PCP - General Family Medicine 09/16/23 Kromer, Shaylee PCP - [facility] [place] [facility] 12/28/23 Coal Passer Relationship Specialty Start Date End Date Rumschlag, Elizabet, DO [address] [place] [address] PCP - General Family Medicine 09/16/23 Kromer, Shaylee PCP - [facility] [place] [facility] 12/28/23 Coal Passer Relationship Specialty Start Date End Date Rumschlag, Elizabet, DO [address] [place] [address] PCP - General Family Medicine 09/16/23 Kromer, Shaylee PCP - [facility] [place] [facility] 12/28/23 Coal Passer Relationship Specialty Start Date End Date Rumschlag, Elizabet, DO [address] [place] [address] PCP - General Family Medicine 09/16/23 Kromer, Shaylee PCP - [facility] [place] [facility] 12/28/23 Coal Passer Relationship Specialty Start Date End Date Rumschlag, Elizabet, DO [address] [place] [address] PCP - General Family Medicine 09/16/23 Kromer, Shaylee PCP - [facility] [place] [facility] 12/28/23 Coal Passer Relationship Specialty Start Date End Date Rumschlag, Elizabet, DO [address] [place] [address] PCP - General Family Medicine 09/16/23 Kromer, Shaylee PCP - [facility] [place] [employer] 12/28/23 Coal Passer Relationship Specialty Start Date End Date Rumschlag, Elizabet, DO [address] [place] [address] PCP - General Family Medicine 09/16/23 Kromer, Shaylee PCP - [facility] [place] [employer] 12/28/23 Coal Passer Relationship Specialty Start Date End Date Rumschlag, Elizabet, DO [address] [place] [address] PCP - General Family Medicine 09/16/23 Kromer, Shaylee PCP - [facility] [place] [facility] 12/28/23 Coal Passer Relationship Specialty Start Date End Date Rumschlag, Elizabet, DO [address] [place] [address] PCP - General Family Medicine 04/16/22 Coal Passer Relationship Specialty Start Date End Date Rumschlag, Elizabet, DO [address] [place] [address] PCP - General Family Medicine 09/16/23 Kromer, Shaylee PCP - [facility] [place] [employer] 12/28/23 Coal Passer Relationship Specialty Start Date End Date Rumschlag, Elizabet, DO [address] [place] [address] PCP - General Family Medicine 09/16/23 Kromer, Shaylee PCP - [facility] [place] [employer]CH[employer] 12/28/23 Coal Passer Relationship Specialty Start Date End Date Rumschlag, Elizabet, DO [address] [place] [address] PCP - General Family Medicine 04/16/22 Coal Passer Relationship Specialty Start Date End Date Rumschlag, Elizabet, DO [address] [place] [address] PCP - General Family Medicine 09/16/23 Coal Passer Relationship Specialty Start Date End Date Rumschlag, Elizabet, DO [address] [place] [address] PCP - General Family Medicine 09/16/23 Coal Passer Relationship Specialty Start Date End Date Rumschlag, Elizabet, DO [address] [place] [address] PCP - General Family Medicine 09/16/23 Coal Passer Relationship Specialty Start Date End Date Rumschlag, Elizabet, DO [address] [place] [address] PCP - General Family Medicine 09/16/23 Coal Passer Relationship Specialty Start Date End Date Rumschlag, Elizabet, DO [address] [place] [address] PCP - General Family Medicine 09/16/23 Coal Passer Relationship Specialty Start Date End Date Rumschlag, Elizbaet, DO [address] [place] [address] PCP - General Family Medicine 09/16/23 Shaylee Kendall PCP - BOBBY Lak[facility] 12/28/23 Coal Passer Relationship Specialty Start Date End Date Rumschlag, Elizabet, DO [address] [place] [address] PCP - General Family Medicine 09/16/23 Shaylee Kendall PCP - NOM[facility] Lakhani [facility] 12/28/23 Coal Passer Relationship Specialty Start Date End Date Rumschlag, Elizabet, DO [address] [place] [address] PCP - General Family Medicine 04/16/22 Coal Passer Relationship Specialty Start Date End Date Rumschlag, Elizabet, DO [address] [place] [address] PCP - General Family Medicine 04/16/22 Coal Passer Relationship Specialty Start Date End Date Rumschlag, Elizabet, DO [address] [place] [address] PCP - General Family Medicine 09/16/23 Shaylee Kendall PCP - BOBBY Lak[facility] 12/28/23 Coal Passer Relationship Specialty Start Date End Date Services, [facility] [address] [place], [place] PCP - General Family Medicine 04/06/24 Coal Passer Relationship Specialty Start Date End Date Services, [facility] [address] [place] PCP - General Family Medicine 08/11/19 Coal Passer Relationship Specialty Start Date End Date Services, [facility] [address] [place] PCP - General Family Medicine 04/06/24 Coal Passer Relationship Specialty Start Date End Date Rumschlag, Elizabet, DO [address] [place] [address] PCP - General Family Medicine 04/16/22 Coal Passer Relationship Specialty Start Date End Date Services, [facility] [address] [place] PCP - General Family Medicine 04/06/24 Coal Passer Relationship Specialty Start Date End Date Services, [facility] [address] [place] PCP - General Family Medicine 04/06/24 Coal Passer Relationship Specialty Start Date End Date Services, [facility] [address] [place] PCP - General Family Medicine 04/06/24 Coal Passer Relationship Specialty Start Date End Date Services, [facility] [address] [place] PCP - General Family Medicine 04/06/24 Coal Passer Relationship Specialty Start Date End Date Elizabet Simental DO [address] [place] [address] PCP - General Family Medicine 04/16/22 Coal Passer Relationship Specialty Start Date End Date Services, [facility] [address] [place] PCP - General Family Medicine 04/06/24 Coal Passer Relationship Specialty Start Date End Date Elizabet Simental DO [address] [place] [address] PCP - General Family Medicine 09/16/23 Shaylee Kendall PCP - [facility] [place] [facility] 12/28/23 Mariia Quinteros PA [address] [facility] [address] [place] [address] Physician Cartridge Belt Puncher Neurology 09/14/24 Team Status: Inactive Member Role Status Dates Jesusita Lopez PA-C Attending Provider Active Start: October 05, 2024 End: October 05, 2024 Coal Passer Relationship Specialty Start Date End Date Rumschlag, Elizabet, DO [address] [place] [address] PCP - General Family Medicine 04/16/22 Coal Passer Relationship Specialty Start Date End Date Rumschlag, Elizabet, DO [address] [place] [address] PCP - General Family Medicine 04/16/22 Coal Passer Relationship Specialty Start Date End Date Rumschlag, Elizabet, DO [address] [place] [address] PCP - General Family Medicine 04/16/22 Coal Passer Relationship Specialty Start Date End Date Rumschlag, Elizabet, DO [address] [place] [address] PCP - General Family Medicine 04/16/22 Coal Passer Relationship Specialty Start Date End Date Rumschlag, Elizabet, DO [address] [place] [address] PCP - General Family Medicine 04/16/22 Coal Passer Relationship Specialty Start Date End Date Rumschlag, Elizabet, DO [address] [place] [address] PCP - General Family Medicine 04/16/22 Coal Passer Relationship Specialty Start Date End Date Rumschlag, Elizabet, DO [address] [place] [address] PCP - General Family Medicine 04/16/22 Coal Passer Relationship Specialty Start Date End Date Rumschlag, Elizabet, DO [address] [place] [address] PCP - General Family Medicine 04/16/22 Coal Passer Relationship Specialty Start Date End Date Rumschlag, Elizabet, DO [address] [place] [address] PCP - General Family Medicine 04/16/22 Coal Passer Relationship Specialty Start Date End Date Rumschlag, Elizabet, DO [address] [place] [address] PCP - General Family Medicine 04/16/22 Coal Passer Relationship Specialty Start Date End Date Rumschlag, Elizabet, DO [address] [place] [address] PCP - General Family Medicine 04/16/[address] [place] [address] Nutrition 02/07/25 Coal Passer Relationship Specialty Start Date End Date Rumjuliocesar, Elizabet, DO [address] [place] [address] PCP - [facility] 04/16/[address] [place] [address] Nutrition 02/07/25 Team Status: Active Member Role Status Dates NON STAFF Primary Care Provider Active Start: February 13, 2025 Gemini Sloan Attending Provider Active Start: February 13, 2025 Team Status: Inactive Member Role Status Dates NON STAFF Primary Care Provider Active Start: March 01, 2025 End: March 01, 2025 Araceli Veliz APRN Attending Provider Active S tart: March 01, 2025 End: March 01, 2025 Source Comments (unrecognize d section and content) In the event this informatio n is protected by the Federal Confidentiality of Alcohol and Drug Abuse Patient Records regulations: The Federal rules restrict any use of the information to criminally investigate or prosecute any alcohol or drug abuse patient.[facility] the event this information is protected by the Federal Confidentiality of Alcohol and Drug Abuse Patient Records regulations: The Federal rules restrict any use of the information to criminally investigate or prosecute any alcohol or drug abuse patient.[facility] HospitalIn the event this information is protected by the Federal Confidentiality of Alcohol and Drug Abuse Patient Records regulations: The Federal rules restrict any use of the information to criminally investigate or prosecute any alcohol or drug abuse patient.[facility] Hospital[facility] the event this information is protected by the Federal Confidentiality of Alcohol and Drug Abuse Patient Records regulations: The Federal rules restrict any use of the information to criminally investigate or prosecute any alcohol or drug abuse patient.[facility] HospitalIn the event this information is protected by the Federal Confidentiality of Alcohol and Drug Abuse Patient Records regulations: The Federal rules restrict any use of the information to criminally investigate or prosecute any alcohol or drug abuse patient.[facility] HospitalIn the event this information is protected by the Federal Confidentiality of Alcohol and Drug Abuse Patient Records regulations: The Federal rules restrict any use of the information to criminally investigate or prosecute any alcohol or drug abuse patient.[facility] HospitalIn the event this information is protected by the Federal Confidentiality of Alcohol and Drug Abuse Patient Records regulations: The Federal rules restrict any use of the information to criminally investigate or prosecute any alcohol or drug abuse patient.[facility] Hospital[facility] the event this information is protected by the Federal Confidentiality of Alcohol and Drug Abuse Patient Records regulations: The Federal rules restrict any use of the information to criminally investigate or prosecute any alcohol or drug abuse patient.[facility] HospitalIn the event this information is protected by the Federal Confidentiality of Alcohol and Drug Abuse Patient Records regulations: The Federal rules restrict any use of the information to criminally investigate or prosecute any alcohol or drug abuse patient.[facility] HospitalIn the event this information is protected by the Federal Confidentiality of Alcohol and Drug Abuse Patient Records regulations: The Federal rules restrict any use of the information to criminally investigate or prosecute any alcohol or drug abuse patient.[facility] HospitalIn the event this information is protected by the Federal Confidentiality of Alcohol and Drug Abuse Patient Records regulations: The Federal rules restrict any use of the information to criminally investigate or prosecute any alcohol or drug abuse patient.[facility] HospitalIn the event this information is protected by the Federal Confidentiality of Alcohol and Drug Abuse Patient Records regulations: The Federal rules restrict any use of the information to criminally investigate or prosecute any alcohol or drug abuse patient.[facility] HospitalIn the event this information is protected by the Federal Confidentiality of Alcohol and Drug Abuse Patient Records regulations: The Federal rules restrict any use of the information to criminally investigate or prosecute any alcohol or drug abuse patient.[facility] HospitalIn the event this information is protected by the Federal Confidentiality of Alcohol and Drug Abuse Patient Records regulations: The Federal rules restrict any use of the information to criminally investigate or prosecute any alcohol or drug abuse patient.[facility] HospitalIn the event this information is protected by the Federal Confidentiality of Alcohol and Drug Abuse Patient Records regulations: The Federal rules restrict any use of the information to criminally investigate or prosecute any alcohol or drug abuse patient.[facility] HospitalIn the event this information is protected by the Federal Confidentiality of Alcohol and Drug Abuse Patient Records regulations: The Federal rules restrict any use of the information to criminally investigate or prosecute any alcohol or drug abuse patient.[facility] HospitalIn the event this information is protected by the Federal Confidentiality of Alcohol and Drug Abuse Patient Records regulations: The Federal rules restrict any use of the information to criminally investigate or prosecute any alcohol or drug abuse patient.[facility] HospitalIn the event this information is protected by the Federal Confidentiality of Alcohol and Drug Abuse Patient Records regulations: The Federal rules restrict any use of the information to criminally investigate or prosecute any alcohol or drug abuse patient.[facility] HospitalIn the event this information is protected by the Federal Confidentiality of Alcohol and Drug Abuse Patient Records regulations: The Federal rules restrict any use of the information to criminally investigate or prosecute any alcohol or drug abuse patient.[facility] HospitalIn the event this information is protected by the Federal Confidentiality of Alcohol and Drug Abuse Patient Records regulations: The Federal rules restrict any use of the information to criminally investigate or prosecute any alcohol or drug abuse patient.[facility] HospitalIn the event this information is protected by the Federal Confidentiality of Alcohol and Drug Abuse Patient Records regulations: The Federal rules restrict any use of the information to criminally investigate or prosecute any alcohol or drug abuse patient.[facility] HospitalIn the event this information is protected by the Federal Confidentiality of Alcohol and Drug Abuse Patient Records regulations: The Federal rules restrict any use of the information to criminally investigate or prosecute any alcohol or drug abuse patient.[facility] HospitalIn the event this information is protected by the Federal Confidentiality of Alcohol and Drug Abuse Patient Records regulations: The Federal rules restrict any use of the information to criminally investigate or prosecute any alcohol or drug abuse patient.[facility] HospitalIn the event this information is protected by the Federal Confidentiality of Alcohol and Drug Abuse Patient Records regulations: The Federal rules restrict any use of the information to criminally investigate or prosecute any alcohol or drug abuse patient.[facility] HospitalIn the event this information is protected by the Federal Confidentiality of Alcohol and Drug Abuse Patient Records regulations: The Federal rules restrict any use of the information to criminally investigate or prosecute any alcohol or drug abuse patient.[facility] HospitalIn the event this information is protected by the Federal Confidentiality of Alcohol and Drug Abuse Patient Records regulations: The Federal rules restrict any use of the information to criminally investigate or prosecute any alcohol or drug abuse patient.[facility] HospitalIn the event this information is protected by the Federal Confidentiality of Alcohol and Drug Abuse Patient Records regulations: The Federal rules restrict any use of the information to criminally investigate or prosecute any alcohol or drug abuse patient.[facility] HospitalIn the event this information is protected by the Federal Confidentiality of Alcohol and Drug Abuse Patient Records regulations: The Federal rules restrict any use of the information to criminally investigate or prosecute any alcohol or drug abuse patient.[facility] HospitalIn the event this information is protected by the Federal Confidentiality of Alcohol and Drug Abuse Patient Records regulations: The Federal rules restrict any use of the information to criminally investigate or prosecute any alcohol or drug abuse patient.[facility] HospitalIn the event this information is protected by the Federal Confidentiality of Alcohol and Drug Abuse Patient Records regulations: The Federal rules restrict any use of the information to criminally investigate or prosecute any alcohol or drug abuse patient.[facility] HospitalIn the event this information is protected by the Federal Confidentiality of Alcohol and Drug Abuse Patient Records regulations: The Federal rules restrict any use of the information to criminally investigate or prosecute any alcohol or drug abuse patient.[facility] HospitalIn the event this information is protected by the Federal Confidentiality of Alcohol and Drug Abuse Patient Records regulations: The Federal rules restrict any use of the information to criminally investigate or prosecute any alcohol or drug abuse patient.[facility] HospitalIn the event this information is protected by the Federal Confidentiality of Alcohol and Drug Abuse Patient Records regulations: The Federal rules restrict any use of the information to criminally investigate or prosecute any alcohol or drug abuse patient.[facility] HospitalIn the event this information is protected by the Federal Confidentiality of Alcohol and Drug Abuse Patient Records regulations: The Federal rules restrict any use of the information to criminally investigate or prosecute any alcohol or drug abuse patient.[facility] HospitalIn the event this information is protected by the Federal Confidentiality of Alcohol and Drug Abuse Patient Records regulations: The Federal rules restrict any use of the information to criminally investigate or prosecute any alcohol or drug abuse patient.[facility] HospitalIn the event this information is protected by the Federal Confidentiality of Alcohol and Drug Abuse Patient Records regulations: The Federal rules restrict any use of the information to criminally investigate or prosecute any alcohol or drug abuse patient.[facility] HospitalIn the event this information is protected by the Federal Confidentiality of Alcohol and Drug Abuse Patient Records regulations: The Federal rules restrict any use of the information to criminally investigate or prosecute any alcohol or drug abuse patient.[facility] HospitalIn the event this information is protected by the Federal Confidentiality of Alcohol and Drug Abuse Patient Records regulations: The Federal rules restrict any use of the information to criminally investigate or prosecute any alcohol or drug abuse patient.[facility] HospitalIn the event this information is protected by the Federal Confidentiality of Alcohol and Drug Abuse Patient Records regulations: The Federal rules restrict any use of the information to criminally investigate or prosecute any alcohol or drug abuse patient.[facility] HospitalIn the event this information is protected by the Federal Confidentiality of Alcohol and Drug Abuse Patient Records regulations: The Federal rules restrict any use of the information to criminally investigate or prosecute any alcohol or drug abuse patient.[facility] HospitalIn the event this information is protected by the Federal Confidentiality of Alcohol and Drug Abuse Patient Records regulations: The Federal rules restrict any use of the information to criminally investigate or prosecute any alcohol or drug abuse patient.[facility] HospitalIn the event this information is protected by the Federal Confidentiality of Alcohol and Drug Abuse Patient Records regulations: The Federal rules restrict any use of the information to criminally investigate or prosecute any alcohol or drug abuse patient.[facility] HospitalIn the event this information is protected by the Federal Confidentiality of Alcohol and Drug Abuse Patient Records regulations: The Federal rules restrict any use of the information to criminally investigate or prosecute any alcohol or drug abuse patient.[facility] the event this information is protected by the Federal Confidentiality of Alcohol and Drug Abuse Patient Records regulations: The Federal rules restrict any use of the information to criminally investigate or prosecute any alcohol or drug abuse patient.[facility] HospitalIn the event this information is protected by the Federal Confidentiality of Alcohol and Drug Abuse Patient Records regulations: The Federal rules restrict any use of the information to criminally investigate or prosecute any alcohol or drug abuse patient.[facility] HospitalIn the event this information is protected [...] or prosecute any alcohol or drug abuse patient.[facility] HospitalIn the event this information is protected by the Federal Confidentiality of Alcohol and Drug Abuse Patient Records regulations: The Federal rules restrict any use of the information to criminally investigate or prosecute any alcohol or drug abuse patient.[facility] HospitalIn the event this information is protected by the Federal Confidentiality of Alcohol and Drug Abuse Patient Records regulations: The Federal rules restrict any use of the information to criminally investigate or prosecute any alcohol or drug abuse patient.[facility] HospitalIn the event this information is protected by the Federal Confidentiality of Alcohol and Drug Abuse Patient Records regulations: The Federal rules restrict any use of the information to criminally investigate or prosecute any alcohol or drug abuse patient.[facility] HospitalIn the event this information is protected by the Federal Confidentiality of Alcohol and Drug Abuse Patient Records regulations: The Federal rules restrict any use of the information to criminally investigate or prosecute any alcohol or drug abuse patient.[facility] HospitalIn the event this information is protected by the Federal Confidentiality of Alcohol and Drug Abuse Patient Records regulations: The Federal rules restrict any use of the information to criminally investigate or prosecute any alcohol or drug abuse patient.[facility] HospitalIn the event this information is protected by the Federal Confidentiality of Alcohol and Drug Abuse Patient Records regulations: The Federal rules restrict any use of the information to criminally investigate or prosecute any alcohol or drug abuse patient.[facility] HospitalIn the event this information is protected by the Federal Confidentiality of Alcohol and Drug Abuse Patient Records regulations: The Federal rules restrict any use of the information to criminally investigate or prosecute any alcohol or drug abuse patient.[facility] HospitalIn the event this information is protected by the Federal Confidentiality of Alcohol and Drug Abuse Patient Records regulations: The Federal rules restrict any use of the information to criminally investigate or prosecute any alcohol or drug abuse patient.[facility] HospitalIn the event this information is protected by the Federal Confidentiality of Alcohol and Drug Abuse Patient Records regulations: The Federal rules restrict any use of the information to criminally investigate or prosecute any alcohol or drug abuse patient.[facility] HospitalIn the event this information is protected by the Federal Confidentiality of Alcohol and Drug Abuse Patient Records regulations: The Federal rules restrict any use of the information to criminally investigate or prosecute any alcohol or drug abuse patient.[facility] HospitalIn the event this information is protected by the Federal Confidentiality of Alcohol and Drug Abuse Patient Records regulations: The Federal rules restrict any use of the information to criminally investigate or prosecute any alcohol or drug abuse patient.[facility] HospitalIn the event this information is protected by the Federal Confidentiality of Alcohol and Drug Abuse Patient Records regulations: The Federal rules restrict any use of the information to criminally investigate or prosecute any alcohol or drug abuse patient.[facility] HospitalIn the event this information is protected by the Federal Confidentiality of Alcohol and Drug Abuse Patient Records regulations: The Federal rules restrict any use of the information to criminally investigate or prosecute any alcohol or drug abuse patient.[facility] HospitalIn the event this information is protected by the Federal Confidentiality of Alcohol and Drug Abuse Patient Records regulations: The Federal rules restrict any use of the information to criminally investigate or prosecute any alcohol or drug abuse patient.[facility] HospitalIn the event this information is protected by the Federal Confidentiality of Alcohol and Drug Abuse Patient Records regulations: The Federal rules restrict any use of the information to criminally investigate or prosecute any alcohol or drug abuse patient.[facility] Goals (unrecognized section and content) Goals [...] BE BASED ON THE PRIMARY CLINICAL RECORDS. [facility] [employer] [facility] provides no warranty or guarantee of the accuracy or completeness of information in this document.
--- NOTE | 2025-03-04 07:31 | ED.GENADUL1 ---
HPI HPI - General Adult General Chief complaint: Extremity Injury, Lower Stated complaint: L KNEE PAIN Time Seen by Provider: 03/03/25 12:32 Source: patient Mode of arrival: walk-in Limitations: no limitations History of Present Illness HPI narrative: Patient is a 39-year-old female presenting to the emergency department for evaluation of left knee pain. Patient states he was walking on a level surface 1 week ago when she twisted her knee . Since then, she has had progressive pain in the knee. She states she still be diabetic, though it causes her pain. She states that rest makes it better. She states she is an appoint with orthopedic clinic in 10 days for further evaluation. She denies any blunt injuries, and does not think she broke the knee. Other than pain in the left knee, she denies any other injuries. She is otherwise asymptomatic without chest pain, shortness of breath, nausea, vomiting, fevers, or chills. Related Data Home Medications ?Medication ?Instructions ?Recorded ?Confirmed aripiprazole 10 mg tablet 15 mg PO DAILY 12/13/22 03/03/25 buspirone 15 mg tablet 15 mg PO BID 12/13/22 03/03/25 cetirizine 10 mg tablet 10 mg PO DAILY 12/13/22 03/03/25 duloxetine 60 mg capsule,delayed 60 mg PO DAILY 12/13/22 03/03/25 release famotidine 20 mg tablet 20 mg PO Q12H PRN GI 12/13/22 03/03/25 lamotrigine 100 mg tablet 100 mg PO DAILY 12/13/22 03/03/25 montelukast 10 mg tablet 10 mg PO DAILY 12/13/22 03/03/25 omeprazole 40 mg capsule,delayed 40 mg PO DAILY 12/13/22 03/03/25 release pantoprazole 40 mg tablet,delayed 40 mg PO DAILY GI 12/13/22 03/03/25 release propranolol 60 mg tablet 60 mg PO Q12H 12/13/22 03/03/25 hydrochlorothiazide 12.5 mg tablet 12.5 mg PO QDAY 10/02/23 03/03/25 rizatriptan 10 mg disintegrating 10 mg PO Q2H PRN migraine headache 10/02/23 03/03/25 tablet dulaglutide 1.5 mg/0.5 mL 1.5 mg subcut QWEEK 02/15/25 03/03/25 [facility] metformin 500 mg tablet 500 mg PO BID 02/15/25 03/03/25 ropinirole 02/15/25 Allergies Allergy/AdvReac Type Severity Reaction Status Date / Time adhesive tape Allergy Rash Verified 03/03/25 12:31 cephalexin (From Keflex) Allergy Rash Verified 03/03/25 12:31 Penicillins Allergy Rash Verified 03/03/25 12:31 amoxicillin (From Augmentin) AdvReac Gastrointestinal Verified 03/03/25 12:31 Upset clavulanic acid (From AdvReac Gastrointestinal Verified 03/03/25 12:31 Augmentin) Upset tramadol (From Ultram) AdvReac Gastrointestinal Verified 03/03/25 12:31 Upset Opioid HPI Opioid Management Most Recent Opioid Data: Last Pain Scale 7 02/15/25, 21:23 Review of Systems ROS Status of ROS 10 or more systems reviewed and unremarkable except as noted in history and below [facility] Medical History (Updated 03/03/25 @ 12:55 by Dante Tirado DO) Ulnar neuropathy ?G56.20 - Lesion of ulnar nerve, unspecified upper limb (ICD-10) Anemia ?D64.9 - Anemia, unspecified (ICD-10) Insomnia ?G47.00 - Insomnia, unspecified (ICD-10) PTSD (post-traumatic stress disorder) ?F43.10 - Post-traumatic stress disorder, unspecified (ICD-10) Panic attacks ?F41.0 - Panic disorder [episodic paroxysmal anxiety] (ICD-10) Anxiety ?F41.9 - Anxiety disorder, unspecified (ICD-10) Depression ?F32.A - Depression, unspecified (ICD-10) COVID-19 ?U07.1 - COVID-19 (ICD-10) Migraine ?G43.909 - Migraine, unspecified, not intractable, without status migrainosus (ICD-10) Kidney stones ?N20.0 - Calculus of kidney (ICD-10) Heartburn ?R12 - Heartburn (ICD-10) Hypertension ?I10 - Essential (primary) hypertension (ICD-10) Sleep apnea ?G47.30 - Sleep apnea, unspecified (ICD-10) Pituitary tumor ?D49.7 - Neoplasm of unspecified behavior of endocrine glands and other parts of nervous system (ICD-10) GERD (gastroesophageal reflux disease) ?K21.9 - Gastro-esophageal reflux disease without esophagitis (ICD-10) Eczema ?L30.9 - Dermatitis, unspecified (ICD-10) Chronic back pain ?M54.9 - Dorsalgia, unspecified (ICD-10) ?G89.29 - Other chronic pain (ICD-10) Bipolar depression ?F31.9 - Bipolar disorder, unspecified (ICD-10) Retained intrauterine contraceptive device (IUD) ?T83.39XA - Other mechanical complication of intrauterine contraceptive device, initial encounter (ICD-10) Surgical History (Updated 10/02/23 @ 09:19 by Mariia Moscoso NP) History of esophagogastroduodenoscopy (EGD) ?Z98.890 - Other specified postprocedural states (ICD-10) 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 - Bariatric surgery status (ICD-10) History of tonsillectomy ?Z90.89 - Acquired absence of other organs (ICD-10) History of cholecystectomy ?Z90.49 - Acquired absence of other specified parts of digestive tract (ICD-10) History of carpal tunnel release ?Z98.890 - Other specified postprocedural states (ICD-10) History of spinal surgery ?Z98.890 - Other specified postprocedural states (ICD-10) History of spinal surgery ?Z98.890 - Other specified postprocedural states (ICD-10) H/O splenectomy ?Z90.81 - Acquired absence of spleen (ICD-10) H/O laparoscopy ?Z98.890 - Other specified postprocedural states (ICD-10) H/O gastric sleeve ?Z90.3 - Acquired absence of stomach [part of] (ICD-10) Family History (Updated 10/02/23 @ 09:19 by Mariia Moscoso NP) Other Family history of diabetes mellitus Family history of hypertension Family history of myocardial infarction Lymphoma Social History Within the past year, how often did you have a drink containing alcohol: never Score interpretation: A score less than 3 is consistent with normal alcohol consumption. Smoking status: Former smoker Non-prescribed substance use: denies use Highest level of school completed/degree received: Associate degree: occupational, technical, vocational program Little interest or pleasure in doing things: not at all Feeling down, depressed, or hopeless: not at all Exam Narrative Exam Narrative: CONSTITUTIONAL: Well-appearing, answering questions and following commands appropriately SKIN: Was warm and dry. EYES: Sclerae white. EARS, NOSE, THROAT: Moist oral mucosa. RESPIRATORY: Nonlabored respiration CARDIOVASCULAR: Normal rate and regular rhythm. 2+ DP pulse on the left. GASTROINTESTINAL: Abdomen is nondistended. MUSCULOSKELETAL: There is mild tenderness to palpation throughout the anterior, midline left knee. There is full range of motion in the throughout the knee. The knee joint is stable through ligamentous testing including anterior/posterior drawer and varus/valgus stress test. Able to ambulate with a mildly antalgic gait. There is no joint effusion or overlying erythema/induration/drainage/or other infectious changes. NEUROLOGIC: Patient is awake and alert. Equal strength and sensation to light touch in the bilateral lower extremities. Constitutional Vital Signs, click to edit/add: Last Vital Signs Temp 97.9 F 03/03/25 12:30 Pulse 80 03/03/25 12:30 Resp 16 03/03/25 12:30 BP 142/83 H 03/03/25 12:30 Pulse Ox 95 03/03/25 12:30 O2 Del Method Room Air 03/03/25 12:30 Course Vital Signs Vital signs: Vital Signs Temperature 96.0 F L 03/03/25 12:22 Pulse Rate 80 03/03/25 12:22 Respiratory Rate 18 03/03/25 12:22 Blood Pressure 155/88 H 03/03/25 12:22 Pulse Oximetry 96 03/03/25 12:22 Oxygen Delivery Method Room Air 03/03/25 12:22 Temperature 97.9 F 03/03/25 12:30 Pulse Rate 80 03/03/25 12:30 Respiratory Rate 16 03/03/25 12:30 Blood Pressure 142/83 H 03/03/25 12:30 Pulse Oximetry 95 03/03/25 12:30 Oxygen Delivery Method Room Air 03/03/25 12:30 Medical Decision Making MDM Narrative Medical decision making narrative: Patient is a 39-year-old female presenting to the emergency department for evaluation of left knee pain after twisting it 1 week ago while walking on a level surface. The patient has normal vital signs. She is afebrile. Examination as noted above. Other than mild tenderness throughout the anterior knee, her musculoskeletal examination is unremarkable. She is neurovascularly intact throughout the left lower extremity Differential diagnose includes knee sprain, ligamentous injury/tear, skeletal strain. She had no blunt injuries to suggest underlying fracture, I do not believe an x-ray is indicated at this time. There is no overlying joint effusion, limitation with ROM, or infectious changes to suggest septic arthritis/gout. The knee is stable to ligamentous testing. I do believe the patient is stable for discharge. Her knee was placed in an Trent bandage. She was instructed to obtain a knee brace for further joint support. She was instructed follow-up with orthopedic surgeon in 10 days as already scheduled. Return precautions were given including any new or concerning symptoms. Patient understands and agrees to the plan. FINAL IMPRESSION: #Acute left knee sprain DISPOSITION: Discharged home CONDITION: Good Discharge Plan Discharge Chief Complaint: Extremity Injury, Lower Clinical Impression: Acute knee pain Qualifiers: Laterality: left Qualified Code(s): M25.562 - Pain in left knee Patient Disposition: Home, Self-Care Time of Disposition Decision: 12:55 Condition: Good Mode of Transportation: Private Vehicle Prescriptions / Home Meds: No Action rizatriptan 10 mg tablet,disintegrating 10 mg PO Q2H PRN (Reason: migraine headache) hydrochlorothiazide 12.5 mg tablet 12.5 mg PO QDAY metformin 500 mg tablet 500 mg PO BID Trulicity 1.5 mg/0.5 mL pen injector 1.5 mg subcut QWEEK ropinirole tablet aripiprazole 10 mg tablet 15 mg PO DAILY Patient Comments: HS buspirone 15 mg tablet 15 mg PO BID cetirizine 10 mg tablet 10 mg PO DAILY duloxetine 60 mg capsule,delayed release(DR/EC) 60 mg PO DAILY famotidine 20 mg tablet 20 mg PO Q12H PRN (Reason: GI) lamotrigine 100 mg tablet 100 mg PO DAILY montelukast 10 mg tablet 10 mg PO DAILY omeprazole 40 mg capsule,delayed release(DR/EC) 40 mg PO DAILY pantoprazole 40 mg tablet,delayed release (DR/EC) 40 mg PO DAILY propranolol 60 mg tablet 60 mg PO Q12H Print Language: Jamaican Instructions: Knee Pain (ED) Referrals: Lisa Roberts, BETY [Primary Care Provider] - 1 week Discharge Date/Time: 03/03/25 13:05
== END 2025-03-03 13:05 | disposition home or self-care (01) ==
PROVIDERS: Emergency Provider Student in an Organized Health Care Education/Training Program; PCP Nurse Practitioner Family
DX: M25.562 Pain in left knee (principal); E11.9 Type 2 diabetes mellitus without complications; Z79.85 Long-term (current) use of injectable non-insulin antidiabetic drugs; Z79.84 Long term (current) use of oral hypoglycemic drugs; Z90.49 Acquired absence of other specified parts of digestive tract; Z90.81 Acquired absence of spleen; Z98.84 Bariatric surgery status; Z87.891 Personal history of nicotine dependence
CPT/HCPCS: 99281

== ENCOUNTER 2025-03-28 15:13 | Emergency (ER) | payer MEDICAID, SELFPAY ==
--- OUTSIDE RECORDS SUMMARY | 2007-12-20 10:53 | XMS_ITS | Continuity of Care Document ---
Author Organization [facility] Address [address] [place] [address] Phone Care Team Providers Care Mail Superintendent Name Role Phone Oh Perkins MD Unavailable Unavailable Procedures Procedure Date Offic/outpt E&m Estab Minor 10 08 Colposcopy; W/bx-cerv &/or End 08 Urin Pg Test Visual Color Comp 08 Pp Care Only (separt Proc) Medroxypro [id number] Injection Advance Directives Directive Yes / No Effective Date File Name No Information Encounters Encounter Description Practice Location Reason(s) For Visit Diagnoses Date Provider Providers Copied on Encounter Offic/outpt E&m Estab Minor 10 [facility], [address], [place], [place], [id number], [place] tel:[phone] [facility] No Information 8 Maddie Casiano. [address] [place], [place], [id number] , [place]. tel: [phone] [facility], [address], [place], [place], [id number], [place] tel:[phone] [facility] No Information 8 Maddie Casiano. [address] [place], [place], [id number] , [place]. tel: [phone] [facility], [address], [place], [place], [id number], [place] tel:[phone] [facility] No Information 8 Maddie Casiano. [address] [facility], [place], [place], [id number] , . tel: [phone] Family History Family Member Type Diagnosis Age At Onset No Information Payers Payer name Insurance type Covered democrat ID Authorkristel watkins(s) Mikey [id number] Social History Type Description Quantity Date Captured [...]
--- OUTSIDE RECORDS SUMMARY | 2025-02-09 09:00 | XMS_ITS ---
Author Organization [facility] vices Address [address] [place] [id number] Care Team Providers Care Hazmat Cdl A Driver Name Role Phone Debbie Waqas Primary Care Provider REASON FOR VISIT DM Social History Sex Assigned At : Social History Observation Description Sex Assigned At Female Encounters Encounter Location Date Provider Diagnosis Main [address] [place] [id number] 02/09/2025 Waqas Lewis Plan Of Treatment Next Appt Details Provider Name:Waqas Lewis, 03/29/2025 12:45:00 PM, [address] [place], [id number], Progress Notes * Anabell JACKSONica ADOB: (39 yo F)Acc No.[id number]:02/09/2025 Medical Note Patient: Susi LIVINGSTON Provider: Stephanie Lewis :1985 A ge:39 Y S ex:Female Date:02/09/2025 Address:[address], [id number] Subjective: * Chief Complaints: * 1 . DM. * Medical History: Objective: * Vitals: Assessment: Plan: * Treatment: * Billing Information: * Visit Code: * Procedure Codes: * Electronic signature of MICHELLE Ventura on 03/28/2025 at 04:19 PM EDT Sign off status: Pending * Provider: Stephanie Lewis Date: 0 02/09/2025 Generated for Omayra moore/Beatrice/Barryitting on: 0 03/28/2025 04:19 PM EDT
--- OUTSIDE RECORDS SUMMARY | 2025-02-28 08:45 | XMS_ITS ---
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 Name Role Phone Waqas Lewis Primary Care Provider [phone] REASON FOR VISIT Handicap Placard Renewal Social History Sex Assigned At : Social History Observation Description Sex Assigned At Female Encounters Encounter Location Date Provider Diagnosis Main [address] [place], [place] [id number] 02/28/2025 Waqas Lewis Plan Of Treatment Next Appt Details Provider Name:Waqas Lewis, 03/29/2025 12:45:00 PM, [address] [place], [place], [id number], Progress Notes * Susi JACKSON ADOB: (39 yo F)Acc No.[id number]:02/28/2025 Medical Note Patient: Susi LIVINGSTON Provider: Stephanie Lewis :1985 A ge:39 Y S ex:Female Date:02/28/2025 Address:[address], [id number] Subjective: * Chief Complaints: * 1 . Handicap Placard Renewal. * Medical History: Objective: * Vitals: Assessment: Plan: * Treatment: * Billing Information: * Visit Code: * Procedure Codes: * Electronic signature of MICHELLE Ventura on 03/28/2025 at 04:19 PM EDT Sign off status: Pending * Provider: Stephanie Lewis Date: 0 02/28/2025 Generated for Omayra moore/Beatrice/Beltran on: 0 03/28/2025 04:19 PM EDT
[2025-03-28 15:22] VITALS: BP 152/95; PULSE 78; TEMP 36.5; O2SAT 97; BMI 66.3
--- OUTSIDE RECORDS SUMMARY | 2025-03-28 16:19 | XMS_ITS | Encounter Summary ---
Author Organization [facility] Address [address] [place] [address] Care Team Providers Care Web Site Specialist Name Role Phone Elizabet Dodd DO Primary Care Provider [phone] Shaylee Kendall Unavailable Unavailable Mariia Quinteros Unavailable Reason for Visit * Reason Onset Date Comments Med Refill 02/05/2025 Encounter Details Date Type Department Care Team (Late Contact Info) Description 02/05/2025 Refill LIZET CAROLYN [address] [place] [address] Mariia Quinteros PA [address] [place], [place] [address] Migraine without aura and without status migrainosus, [...] Department Care Team (Late Contact Info) Description 04/03/2025 2:30 PM EDT Office Visit [facility] [address] [place] [address] Juan Villar, BETY [address] [place] [address] documented as of this encounter Visit Diagnoses Diagnosis Migraine without aura and without status migrainosus, not intractable documented in this encounter Care Teams Web Site Specialist Relationship Specialty Start Date End Date Elizabet Dodd DO [address] [place] [address] PCP - General Family Medicine 09/16/23 Shaylee Kendall PCP - [facility] 12/28/23 Mariia Quinteros PA [address] [place] [address] Physician Ground Mixer Neurology 09/14/24 documented as of this encounter
--- OUTSIDE RECORDS SUMMARY | 2025-03-28 16:19 | XMS_ITS | Encounter Summary ---
Author Organization [facility] [employer] tem Address [id number] [address] [place] [address] Care Team Providers Care Splicer Operator Name Role Phone Services, [facility] Primary Care Provider Encounter Details Date Type Department Care Team (Late st Contact Info) Description 08/17/2024 Orders Only [facility] Oncology, A Department of [facility] [address] [place] [address] Yakelin Cherry RN Pelvic mass [...] pain documented in this encounter Care Teams Splicer Operator Relationship Specialty Start Date End Date [facility], [facility] [address] [place], [place] PCP - General Family Medicine 04/06/24 documented as of this encounter
--- OUTSIDE RECORDS SUMMARY | 2025-03-28 16:19 | XMS_ITS | Encounter Summary ---
Author Organization [facility] Address [address] [place] [place] [address] Care Team Providers Care Business Integration Analyst Name Role Phone Elizabet Dodd DO Primary Care Provider [phone] Artur Hernandez MD Unavailable [phone] Shaylee Kendall Unavailable Unavailable Mariia Quinteros Unavailable Encounter Details Date Type Department Care Team (Late st Contact Info) Description 09/14/2023 Clinisync Result Encounter [facility] External Department Unsolicited Kiko Harley DO [address] [place] [address] Social History Tobacco Use Types [...] Care Team (Late st Contact Info) Description 04/03/2025 2:30 PM EDT Office Visit [facility] [place] [facility] [address] [place] [address] Juan Villar, BETY [address] [place], [place] [id number] documented as of this encounter Procedures Procedure Name Priority Date/Time Associated Diagnosis Comments US PELVIS TRANSVAGINAL 09/14/2023 1:45 PM EDT documented in this encounter Results * US PELVIS TRANSVAGINAL (09/14/2023 1:45 PM EDT) Anatomical Region Laterality Modality Other 09/14/2023 1:45 PM EDT Narrative 09/14/2023 1:48 [place] [address] Ultrasound Report Signed Patient: ANGELES JACKSON MR#: [id number] : 1985 Acct:[id number] Age/Sex: 38 / F ADM Date: 09/14/23 Loc: [facility] Attending Dr: Kiko Harley D.O. Ordering Physician: Kiko Harley D.O. Date of Service: 09/14/23 Procedure(s): US pelvis transvaginal Accession Number(s): [id number] cc: Kiko Harley D.O.; Physician,Non-Staff M.D. [place] [id number] Patient Name: ANGELES JACKSON MRN: [id number] date: 1985 Sex: F Assigned Patient Location: [facility] Current Patient Location: [facility] Accession/Order Number: [id number] Exam Date: 09/14/2023 13:02 Report Date: 09/14/2023 [...] Signed By: 09/14/23 1348 DD/ 1345 TD/TT: Sonogram Technician: Procedure Note Radiology, Radiologist, - 09/14/2023 [place] [address] Ultrasound Report Signed Patient: ANGELES JACKSON AMR#: [id number] : 1985Acct:[id number] Age/Sex: 38 / FADM Date: 09/14/23 Loc: [facility] Attending Dr: Kiko Harley D.O. Ordering Physician: Kiko Harley D.O. Date of Service: 09/14/23 Procedure(s): US pelvis transvaginal Accession Number(s): [id number] cc: Kiko Harley D.O.; Physician,Non-Staff [place] [id number] Patient Name: ANGELES JACKSON MRN: [id number] date: 1985 Sex: F Assigned Patient Location: [facility] Current Patient Location: [facility] Accession/Order Number: [id number] Exam Date: 09/14/2023 13:02 Report Date: 09/14/2023 [...] M.D. Signed By:09/14/23 1348 DD/ 1345 TD/TT: Sonogram Technician: Kiko Cherri DO [facility] Final Result documented in this encounter Visit Diagnoses Not on filedocumented in this encounter Care Teams Business Integration Analyst Relationship Specialty Start Date End Date Elizabet Dodd DO [address] [place] [address] PCP - General Family Medicine 09/16/23 Artur Hernandez MD [address] [facility] [address] [place], [place] [id number] PCP - [facility] [place] COVERING MACHINE OPERATOR 09/28/23 12/27/23 Shaylee Kendall PCP - [facility] [place] COVERING MACHINE OPERATOR 12/28/23 Mariia Quinteros PA [address] [place] [address] Physician Peritoneal Dialysis Registered Nurse Neurology 09/14/24 documented as of this encounter
--- OUTSIDE RECORDS SUMMARY | 2025-03-28 16:19 | XMS_ITS | Encounter Summary ---
Author Organization [facility] Address [address] [place] [place] [address] Care Team Providers Care Clothing Consultant Name Role Phone Elizabet Dodd DO Primary Care Provider [phone] Shaylee Kendall Unavailable Unavailable Mariia Quinteros Unavailable Encounter Details Date Type Department Care Team (Late Contact Info) Description 08/01/2024 Abstract [facility] [address] [place] [address] Jamie Harley DO [address] Antonella Saeed, [facility]11 Social History Tobacco Use Types Packs/Day Years [...] Description 04/03/2025 2:30 PM EDT Office Visit [facility] [address] [place] [address] Juan Villar NP [address] [place], [place] [address] documented as of this encounter Visit Diagnoses Not on filedocumented in this encounter Care Teams Clothing Consultant Relationship Specialty Start Date End Date Elizabet Dodd DO [address] [place] [address] PCP - General Family Medicine 09/16/23 Shaylee Kendall PCP - [facility] [place] [facility] 12/28/23 Mariia Quinteros PA [address] [facility] [address] [place] [address] Physician Sparker And Patcher Neurology 09/14/24 documented as of this encounter
--- OUTSIDE RECORDS SUMMARY | 2025-03-28 16:19 | XMS_ITS | Encounter Summary ---
Author Organization [facility] Address [address] [place] [address] Care Team Providers Care Faculty Research Physician Name Role Phone Elizabet Dodd DO Primary Care Provider [phone] Shaylee Kendall Unavailable Unavailable Mariia Quinteros Unavailable Encounter Details Date Type Department Care Team (Late Contact Info) Description 07/21/2024 Abstract [facility] [address] [facility] [place] [address] Jamie Harley DO [address] Antonella Saeed, [facility] Social History Tobacco Use Types Packs/Day Years [...] EDT Office Visit [facility] [address] [place] [address] Juan Villar NP [address] [place], [place] [address] documented as of this encounter Visit Diagnoses Not on filedocumented in this encounter Care Teams Faculty Research Physician Relationship Specialty Start Date End Date Elizabet Dodd DO [address] [place] [address] PCP - General Family Medicine 09/16/23 Shaylee Kendall PCP - [facility] [place] [facility] 12/28/23 Mariia Quinteros PA [address] [facility] [address] [place] [address] Physician Insurance Attorney Neurology 09/14/24 documented as of this encounter
--- OUTSIDE RECORDS SUMMARY | 2025-03-28 16:19 | XMS_ITS | Clinical Summary ---
Author Organization [facility] Address [address] [place] [address] Care Team Providers Care Picture Booker Name Role Phone Elizabet Dodd DO Primary Care Provider [phone] Allergies Active Allergy Reactions Criticality Noted Date [...] age to complete this topic Care Teams Picture Booker Relationship Specialty Start Date End Date Elizabet Dodd DO PCP - General Family Medicine 03/21/21
--- OUTSIDE RECORDS SUMMARY | 2025-03-28 16:19 | XMS_ITS | Clinical Summary ---
Author Organization [facility] Address [address] [place] [address] Care Team Providers Care Behavioral Assistant Name Role Phone WestElizabet gandara Primary Care Provider [phone] Allergies Active Allergy Reactions Criticality Noted Date [...] Plan of Treatment Not on file Insurance [employer] Advance Directives * Full Code (Latest Code Status on File) Date Activated Date Inactivated Comments 01/16/2017 11:20 PM 01/21/2017 5:23 PM Care Teams Behavioral Assistant Relationship Specialty Start Date End Date Elizabet Dodd DO [address] [place] [address] PCP - General Family Medicine 08/26/19
--- OUTSIDE RECORDS SUMMARY | 2025-03-28 16:19 | XMS_ITS | Encounter Summary ---
Author Organization [facility] Address [address] [place] [address] Care Team Providers Care Editorial Manager Name Role Phone Elizabet Dodd DO Primary Care Provider [phone] Shaylee Kendall Unavailable Unavailable Mariia Quinteros Unavailable Encounter Details Date Type Department Care Team (Late Contact Info) Description 03/06/2024 Abstract [facility] [address] [place] [address] Jamie Harley DO [address] [facility] [address] Antonella Saeed, [facility]11 Social History Tobacco Use Types Packs/Day [...] Office Visit [facility] [address] [place] [address] Juan Villar NP [address] [place], [place] [address] documented as of this encounter Visit Diagnoses Not on filedocumented in this encounter Care Teams Editorial Manager Relationship Specialty Start Date End Date Elizabet Dodd DO [address] [place] [address] PCP - General Family Medicine 09/16/23 Shaylee Kendall PCP - [facility] [place] [facility] 12/28/23 Mariia Quinteros PA [address] [facility] [address] [place] [address] Physician Laborer Vineyard Neurology 09/14/24 documented as of this encounter
--- OUTSIDE RECORDS SUMMARY | 2025-03-28 16:19 | XMS_ITS | Encounter Summary ---
Author Organization [facility] Address [address] [place] [place] [address] Care Team Providers Care M1 Armor Crewman Name Role Phone Elizabet Dodd DO Primary Care Provider [phone] Shaylee Kendall Unavailable Unavailable Mariia Quinteros Unavailable Encounter Details Date Type Department Care Team (Late st Contact Info) Description 03/10/2024 Clinisync Result Encounter [facility] External Department Unsolicited Kiko Harley DO [address] [place] [address] Social History Tobacco Use Types [...] 04/03/2025 2:30 PM EDT Office Visit [facility] [place] [facility] [address] [place] [address] Juan Villar, BETY [address] [place], [place] [address] documented as of this encounter Procedures Procedure Name Priority Date/Time Associated Diagnosis Comments US PELVIS W/ TRANSVAGINAL 03/10/2024 9:03 AM EDT documented in this encounter Results * US PELVIS W/ TRANSVAGINAL (03/10/2024 9:03 AM EDT) Anatomical Region Laterality Modality Other 03/10/2024 9:03 AM EDT Narrative 03/10/2024 9:06 [place] [address] Ultrasound Report Signed Patient: ANGELES JACKSON MR#: [id number] : 1985 Acct:[id number] Age/Sex: 38 / F ADM Date: 03/09/24 Loc: [facility] Attending Dr: Kiko Harley D.O. Ordering Physician: Kiko Harley D.O. Date of Service: 03/09/24 Procedure(s): US pelvis w/ transvaginal Accession Number(s): [id number] cc: Kiko Harley D.O.; Lisa Roberts NP [place] [address] Patient Name: ANGELES JACKSON MRN: [id number] date: 1985 Sex: F Assigned Patient [facility]: [facility] Current Patient Location: Accession/Order Number: [id number] Exam Date: 03/09/2024 14:05 Report Date: 03/10/2024 [...] M.D. Signed By: 03/10/24905 DD/ 2 TD/TT: Travograph Operator: Procedure Note Radiology, Radiologist, MD - 03/10/2024 [place] [address] Ultrasound Report Signed Patient: ANGELES JACKSON AMR#: [id number] : 1985Acct:[id number] Age/Sex: 38 / FADM Date: 03/09/24 Loc: [facility] Attending Dr: Kiko Harley D.O. Ordering Physician: Kiko Harley D.O. Date of Service: 03/09/24 Procedure(s): US pelvis w/ transvaginal Accession Number(s): [id number] cc: Kiko Harley D.O.; Lisa Roberts The [place] [address] Patient Name: ANGELES JACKSON MRN: [id number] date: 1985 Sex: F Assigned Patient Location: [facility] Current Patient Location: Accession/Order Number: [id number] Exam Date: 03/09/2024 14:05 Report Date: 03/10/2024 [...] [place] M.D. Signed By:03/10/24905 DD/ 2 TD/TT: Travograph Operator: us Kiko Cherri DO [facility] Final Result documented in this encounter Visit Diagnoses Not on filedocumented in this encounter Care Teams M1 Armor Crewman Relationship Specialty Start Date End Date Elizabet Dodd DO [address] [place] [address] PCP - General Family Medicine 09/16/23 Shaylee Kendall PCP - [facility] 12/28/23 Mariia Quinteros PA [address] [place] [address] Physician Machinist/Machine Builder Neurology 09/14/24 documented as of this encounter
--- OUTSIDE RECORDS SUMMARY | 2025-03-28 16:19 | XMS_ITS | Encounter Summary ---
Author Organization [facility] Sy tem Address [id number] [address] [place] [address] Care Team Providers Care Programmer Developer Name Role Phone Services, [facility] Primary Care Provider Reason for Visit * Reason Onset Date Comments Med Refill 08/31/2017 Encounter Details Date Type Department Care Team (Late st Contact Info) Description 08/31/2017 Refill [facility] - Surgery Pre and Post OP [address] [place] [address] Ursula Gibson RN Social History [...] on filedocumented in this encounter Care Teams Programmer Developer Relationship Specialty Start Date End Date Services, [facility] [address] [place], [place] PCP - General Family Medicine 04/06/24 documented as of this encounter
--- OUTSIDE RECORDS SUMMARY | 2025-03-28 16:19 | XMS_ITS | Encounter Summary ---
Author Organization [facility] Address [address] [place] [address] Care Team Providers Care Straw Hat Plunger Operator Name Role Phone Elizabet Dodd DO Primary Care Provider [phone] Shaylee Kendall Unavailable Unavailable Mariia Quinteros Unavailable Encounter Details Date Type Department Care Team (Late Contact Info) Description 07/07/2024 Abstract [facility] [address] [place] [address] Jamie Harley DO [address] [facility] Antonella Saeed, [facility]11 Social History Tobacco Use Types Packs/Day [...] Office Visit [facility] [address] [place] [address] Juan Villar NP [address] [place], [place] [address] documented as of this encounter Visit Diagnoses Not on filedocumented in this encounter Care Teams Straw Hat Plunger Operator Relationship Specialty Start Date End Date Elizabet Dodd DO [address] [place] [address] PCP - General Family Medicine 09/16/23 Shaylee Kendall PCP - [facility] [place] [facility] 12/28/23 Mariia Quinteros PA [address] [facility] [address] [place] [address] Physician Facilities Planner Neurology 09/14/24 documented as of this encounter
--- OUTSIDE RECORDS SUMMARY | 2025-03-28 16:19 | XMS_ITS | Clinical Summary ---
Author Organization [facility] Address [address] [place] [address] Phone Care Team Providers Care Lining Folder Name Role Phone Prince Horvath MD Primary Care Provider [phone] Social History Tobacco Use Types Packs/Day Years [...] of Treatment Not on file Care Teams Lining Folder Relationship Specialty Start Date End Date Prince Horvath MD [address], [address] [address] PCP - General 09/30/21
--- OUTSIDE RECORDS SUMMARY | 2025-03-28 16:19 | XMS_ITS | Clinical Summary ---
Author Organization [facility] Address [id number] [address] [place] [address] Care Team Providers Care Surgical Instruments Inspector Name Role Phone [facility] Primary Care Provider Allergies Active Allergy [...] Indications: bipolar disorder in remission. Active rizatriptan SHAREPOINT MANAGER (MAXALT-SHAREPOINT MANAGER) 10 mg disintegrating tablet Dissolve 1 tablet [...] Amount: 4 tablets 28 tablet 5 Active dulaglutide (TRULICITY) 3 mg/0.5 mL pen injector Inject 3 mg under the skin every 7 days. Active varenicline tartrate (CHANTIX) 1 mg tablet Take 1 tablet (1 mg total) by mouth in the morning and 1 tablet (1 mg total) before bedtime. Take with full glass of water. Active ibuprofen (MOTRIN) 800 mg tablet Take 1 tablet (800 mg total) by mouth every 6 (six) hours as needed for pain. 30 tablet 5 Active Active Problems Problem Noted [...] apnea syndrome 10/10/2016 10/16/2017 Essential hypertension 10/10/201610/16 Encounters Date Type Department Care Team Description 03/06/2025 12:50 PM EDT - 03/06/2025 1:25 PM EDT Emergency [facility] - [facility] [address] [place] [address] Acute pain of left knee (Primary Dx) Discharge Disposition: Home 03/06/2025 Travel from Last 3 Months Immunizations Immunization Administration Dates Next Due Tdap [...] got money to buy more. Never True 03/06/2025 Within the past 12 months th e food we bought just didn't last and we didn't have money to get more. Never True 03/06/2025 Purpose - Life Answer Date Recorded Purpose and direction in life Unknown Comments No Sex and Gender Information Value Date Recorded Sex Assigned at Not on file Legal Sex Female 11:28 AM EDT Gender Identity Not on file Sexual Orientation Not on file Last Filed Vital Signs Vital Sign Reading Time Taken Comments Blood Pressure 134/92 03/06/2025 1:12 PM EDT Pulse 72 03/06/2025 1:12 PM EDT Temperature 36.8 C (98.2 F) 03/06/2025 12:10 PM EDT Respiratory Rate 17 03/06/2025 12:10 PM EDT Oxygen Saturation 95% 03/06/2025 1:12 PM EDT Inhaled Oxygen Concentration - - Weight 179.2 kg (395 lb) 03/06/2025 12:10 PM EDT Height 162.6 cm (5' 4 ) 03/06/2025 12:10 PM EDT Body Mass Index 67.8 03/06/2025 12:10 PM EDT Plan of Treatment Health Maintenance Due Date Last Done Comments Depression Screening 1997 Adult BMI Follow Up Plan 2003 Pap Smear 04/17/2019 04/17/2016 COVID-19 Vaccine (2024-2 6 season) 2025 07/03/2021, 06/13/2021 Influenza Vaccine 02/27/2025 06/02/2024, , 06/20/2019, Additional history exists Adult BMI Screening 03/06/2026 03/06/2025 Tobacco Screening 03/06/2026 03/06/2025 DTaP,Tdap and Td Vaccines (2 - Td or Tdap) 08/11/2029 08/11/2019 Goals Goal Patient Goal Type Associated Problems Recent Progress Patient-Stated? Author Home General Yes Kirsty Tubbs, RN Note: Evaluation of progress towards goal: Patient's goal is to discharge to home. Medical Devices Implanted Type Area Line Haul Owner Operator Device Identifier Shelf Expiration Date Model / Serial / Lot Stnt Esph 23mm 18.5fr 15.5cm - [id number] - [id number] Implanted:Qty: 1 on 06/26/2017 by Andrea Platt MD at [facility] [place] 11/12/2018 [id number] / [id number] / [id number] Procedures Procedure Name Priority Date/Time Associated Diagnosis Comments XR KNEE LT 3 VWS STAT 03/06/2025 12:2 8 PM EDT from Last 3 Months Results * X-ray knee left 3 views (03/06/2025 12:28 PM EDT) Anatomical Region Laterality Modality Lower Extremities, MSK, Knee Left Com puted Radiography 03/06/2025 12:3 4 PM EDT Narrative 03/06/2025 12:35 PM EDT Clinical history: Knee twisting injury. Left knee: 03/06/2025 COMPARISON: None FINDINGS: 3 views the knee were obtained to assess with narrowing, subarticular sclerosis, and marginal new bone formation present. No acute osseous abnormalities evident. Densities projecting over the intercondylar region may represent loose bodies. Phleboliths are present in the anterior soft tissues. There is no large joint effusion. IMPRESSION: Changes of osteoarthritis with no acute osseous abnormality. Finalized by Walt Chapman MD on 03/06/2025 12:35 PM Procedure Note Walt Chapman MD - 03/06/2025 Clinical history: Knee twisting injury. Left knee: 03/06/2025 COMPARISON: None FINDINGS: 3 views the knee were obtained to assess with narrowing, subarticularsclerosis, and marginal new bone formation present. No acute osseousabnormalities evident. Densities projecting over the intercondylar regionmay represent loose bodies. Phleboliths are present in the anterior softtissues. There is no large joint effusion. IMPRESSION: Changes of osteoarthritis with no acute osseous abnormality. Finalized by Walt Chapman MD on 03/06/2025 12:35 PM Olivia Harrison DO IMG DIAGNOSTIC IMAGING ORDERA BLES Final Result from Last 3 Months Insurance [facility] [employer] Advance Directives * Full Code (Latest Code Status on File) Date Activated Date Inactivated Comments 08/06/2017 6:26 PM 08/18/2017 2:14 PM * Full Code Date Activated Date Inactivated Comments 08/06/2017 11:21 AM 08/06/2017 6:26 PM * Full Code Date Activated Date Inactivated Comments 06/10/2017 10:14 AM 06/12/2017 9:36 PM Care Teams Surgical Instruments Inspector Relationship Specialty Start Date End Date [facility] [address] [place] PCP - General Family Medicine 04/06/24
--- OUTSIDE RECORDS SUMMARY | 2025-03-28 16:19 | XMS_ITS | Encounter Summary ---
Author Organization [facility] Address [address] [place] [address] Care Team Providers Care Toll Relief Operator Name Role Phone Elizabet Dodd DO Primary Care Provider [phone] Artur Hernandez MD Unavailable [phone] Shaylee Kendall Unavailable Unavailable Mariia Quinteros Unavailable Encounter Details Date Type Department Care Team (Late st Contact Info) Description 10/02/2023 Clinisync Result Encounter [facility] External Department Unsolicited Kiko Harley DO [address] [place] [address] Social History Tobacco Use Types [...] 04/03/2025 2:30 PM EDT Office Visit [facility] [address] [place] [address] Juan Villar, BETY [address] [place], [place] [id number] documented as of this encounter Procedures Procedure Name Priority Date/Time Associated Diagnosis Comments ECG 12-LEAD 10/02/2023 9:26 AM EDT documented in this encounter Results * ECG 12-LEAD (10/02/2023 9:26 AM EDT) Anatomical Region Laterality Modality Other 10/02/2023 9:26 AM EDT Narrative 10/03/2023 8:22 AM EDT [facility] [place] [id number] Electrocardiograph Report Signed Patient: ANGELES JACKSON MR#: [id number] : 1985 Acct:[id number] Age/Sex: 38 / F ADM Date: 10/02/23 Loc: PST Attending Dr: Kiko Harley D.O. Ordering Physician: Kiko Harley D.O. Date of Service: 10/02/23 Procedure(s): ECG 12 lead Accession Number(s): [id number] cc: [facility] Test Date: 2023-10-02 Pat Name: ANGELES JACKSON Department: Room: - Gender: Female Food Assembler Kitchen: : 1985 Requested By: KIKO HARLEY Order Number: [id number] Reading MD: BEN NUGENT Measurements Intervals [place] Rate: 78 P: 38 ME: 171 QRS: 20 QRSD: 106 T: 15 [...] M.D. Signed By: 10/03/23821 DD/ 5 TD/TT: Agricultural Inspector: Procedure Note Radiology, Radiologist, MD - 10/03/[address] [address] Electrocardiograph Report Signed Patient: ANGELES JACKSON AMR#: [id number] : 1985Acct:[id number] Age/Sex: 38 / FADM Date: 10/02/23 Loc: PST Attending Dr: Kiko Harley D.O. Ordering Physician: Kiko Harley D.O. Date of Service: 10/02/23 Procedure(s): ECG 12 lead Accession Number(s): [id number] cc: [facility] Test Date: 2023-10-02 Pat Name: ANGELES JACKSON Department: Room: - Gender: Female Food Assembler Kitchen: : 1985 Requested By: KIKO HARLEY Order Number: [id number] Reading MD: BEN NUGENT Measurements Intervals [place] Rate: 78 P: 38 ME: 171 QRS: 20 QRSD: 106 T: 15 [...] Nugent M.D. Signed By:10/03/23821 DD/ 5 TD/TT: Agricultural Inspector: Kiko Harley DO [facility] Final Result documented in this encounter Visit Diagnoses Not on filedocumented in this encounter Care Teams Toll Relief Operator Relationship Specialty Start Date End Date Elizabet Dodd DO [address] [place] [address] PCP - General Family Medicine 09/16/23 Artur Hernandez MD [address] [facility] [address] [place] [address] PCP - [facility] [place] NETWORK APPLICATIONS SPECIALIST 09/28/23 12/27/23 Shaylee Kendall PCP - [facility] [place] NETWORK APPLICATION[employer] SPECIALIST 12/28/23 Mariia Quinteros PA [address] [place] [address] Physician Community [facility] Director Neurology 09/14/24 documented as of this encounter
--- OUTSIDE RECORDS SUMMARY | 2025-03-28 16:19 | XMS_ITS | Clinical Summary ---
Author Organization [facility] Address [address] [place] [address] Care Team Providers Care Drill Press Set Up Operator Name Role Phone WestElizabet gandara DO Primary Care Provider [phone] Shaylee Kendall Unavailable Unavailable Mariia Quinteros Unavailable [...] Other Reaction(s): Rash Comments: skin peeling. Medications DULoxetine (Cymbalta) [address] capsule Take 60 mg by mouth Daily Active cholecalciferol (Vitamin D-3) 1.25 MG (02643 UT) capsule Active calcium citrate 250 MG tablet Take [...] needed for 90 days 07/08/19 24 Active hydroCHLOROthiazi de (HYDRODiuril) 12.5 MG tablet TAKE 1 TABLET BY MOUTH IN THE MORNING EVERY DAY Active lamoTRIgine (LaMICtal) 100 MG tablet Take 1 tablet by mouth in the morning. Active loratadine (Claritin) 10 MG tablet TAKE 1 TABLET BY MOUTH DAILY Oral for 30 Active Multiple Vitamins-Minerals (Bariatric Multivitamins/Iro n) capsule Take by mouth Activ e calcium carbonate (Os-Gilberto) 1250 (500 Ca) MG tablet Take 1,250 mg by mouth in the morning and 1,250 mg before bedtime. Active famotidine (Pepcid) 20 MG tablet TAKE [...] mouth in the morning. 11/02/19 24 Active rizatriptan POLE PEELER (Maxalt-POLE PEELER) 10 MG disintegrating tabletIndications :Migraine without aura and without status migrainosus, not intractable Take 1 tablet (10 mg) by mouth 1 (one) time if needed for migraine for up to 30 doses May repeat in 2 hours if unresolved. Do not exceed 30 mg in 24 hours. 9 tablet 3 09/16/19 25 Active OXcarbazepine (Trileptal) 300 MG tabletIndications :Migraine without aura and without status migrainosus, not intractable 1 tab PO at bedtime for 7 days, then go to BID thereafter 60 tablet 3 09/20/19 25 Active varenicline (Chantix) 1 MG tablet Take 1 mg by mouth in the morning and 1 mg before bedtime. Take with full glass of water. Active Dulaglutide 3 MG/0.5ML solution auto-injector Inject under the skin Active esomeprazole (NexIUM) [address] capsule 1 capsule 1 (one) time each day at the same time Disconti nued(The rapy complete d) cetirizine (ZyrTEC) 10 MG tablet Take 10 mg by mouth Daily Disconti nued(The rapy complete d) ondansetron ODT (Zofran-ODT) 4 MG disintegrating tablet 08/17/19 Disconti nued(The rapy complete d) SUMAtriptan (Imitrex) 50 MG tablet Disconti nued(The rapy complete d) biotin 10 MG tablet Take 10 mg by mouth Disconti nu(The rapy complete d) eletriptan (Relpax) 20 MG tablet Take 20 mg by mouth 1 (one) time if needed for migraine May repeat in 2 hours if unresolved. Do not exceed 80 mg in 24 hours. Max 3 days a week Disconti nued(The rapy complete d) LORazepam (Ativan) 0.5 MG tabletIndications :Internal derangement of right knee Take 1 tablet (0.5 mg) by mouth See administration instructions for 1 dose 1 by mouth 1 hour prior to MRI 1 tablet 04/27/20 Disconti nued(The rapy complete d) ondansetron (Zofran) 4 MG tabletIndications :Nausea Take 1 tablet (4 mg) by mouth every 6 (six) hours if needed for nausea or vomiting for up to 30 doses Take 1 tablet by mouth every 6 hours as needed for nausea. 30 tablet 3 07/06/19 025 Disconti nued(The rapy complete d) benzonatate (Tessalon) 200 MG capsule Take 200 mg by mouth 3 (three) times a day as needed 08/14/19 025 Disconti nued(The rapy complete d) diclofenac (Voltaren) 75 MG EC tablet Take 75 mg by mouth 2 (two) times a day as needed 09/01/19 025 Disconti nued(The rapy complete d) HYDROcodone-aceta minophen (Ashton) 5-325 MG tablet TAKE 1 TABLET BY MOUTH EVERY 6 HOURS NEEDED FOR PAIN FOR 5 DAYS 03/13/20 025 Disconti nued(The rapy complete d) methocarbamol (Robaxin) 750 MG tablet Take 750 mg by mouth in the morning and 750 mg at noon and 750 mg in the evening and 750 mg before bedtime. 05/05/20 025 Disconti nued(The rapy complete d) traZODone (Desyrel) 50 MG tablet Take 50 mg by mouth as needed at bedtime 09/01/19 025 [facility] [place]The rapy complete d) Hospital, Clinic, or Other Facility Administered Medication Ordered Dose Route Frequency Start Date End Date Status Levonorgestrel intrauterine deviceIndications:En counter for IUD insertion IU Daily 09/01/2023 Active methylPREDNISolone acetate (DEPO-Medrol) injection 40 mgIndications:Arthri tis of left knee 40 mg IX Once PRN Procedure 03/13/2025 03/13/2025 Ended Active Problems Problem Noted Date Diagnosed Date [...] I will try to get her maxalt POLE PEELER since she just uinderwent a 2nd gastric bypass surgery and risk of poor absorption. Hypokalemia 08/07/2023 Hypophosphatemia 08/07/2023 S/P bariatric surgery 08/04/2023 Morbid obesity 06/10/2017 Arthralgia of both knees 01/17/2017 Chronic midline low back pain without sciatica 0 01/17/2017 Bipolar depression 10/04/2015 Overview (10/13/2023): Last Assessment & Plan: Assessment: managed on medication by PCP and psych DDD (degenerative disc disease), lumbar 10/04/19 GERD without esophagitis 10/04/2015 Overview (10/13/2023): Last Assessment & Plan: Assessment: Controlled on medication TONEY on CPAP 10/04/2015 Overview (10/13/2023): Last Assessment & Plan: Assessment: Noncompliant with CPAP Encounters Date Type Department Care Team Description 03/13/2025 1:30 PM EDT Office Visit [facility] [address] [place] [phone] Juan Villar NP Arthritis of left knee (Primary Dx); Left knee pain, unspecified chronicity 03/13/2025 Bamboo flowsheet [facility] [address] [place] [address] Juan Villar NP 03/13/2025 Travel 03/07/2025 Travel 02/05/2025 Refill [facility] [address] [place] [phone] Mariia Quinteros PA Migraine without aura and [...] Medical History Relation Name Comments Cancer Father [place] Diabetes Father [place] Hypertension Father [place] Lymphoma Father [place] Thyroid disease Mother Relation Name Status Comments [place] Mother Alive Social History Tobacco Use Types [...] 04/03/2025 2:30 PM EDT Office Visit [facility] [address] [place] [address] Juan Villar, CHILD CARE ATTENDANT [address] [place] [address] Health Maintenance Due Date Last Done Comments Pap Smear 2006 Cervical Cancer Screening 2015 HPV/Cotest 2015 Influenza Vaccine (#1) 2025 4, 06/13/2021, 06/20/2019, Additional history exists Procedures Procedure Name Priority Date/Time Associated Diagnosis Comments CA ARTHROCENTESIS ASPIR&/INJ MAJOR JT/BURSA W/O US Routine 03/13/2025 4:24 PM EDT Arthritis of left knee from Last 3 Months Results * CA ARTHROCENTESIS ASPIR&/INJ MAJOR JT/BURSA W/O US (03/13/2025 4:24 PM EDT) Narrative Juan Villar NP - 03/13/2025 4:24 PM EDT Juan Villar NP 03/13/2025 4:26 PM L Inj/Asp: L knee on 03/13/2025 4:24 PM Indications: pain Details: 21 G needle, anterolateral approach Medications: 40 mg methylPREDNISolone acetate 40 MG/ML Outcome: tolerated well, no immediate complications Site was cleaned with isopropyl alcohol Procedure, treatment alternatives, risks and benefits explained, specific risks discussed. Consent was given by the patient. Juan Villar NP IN CLINIC/BEDSIDE ORDERABLES Fi nal Result from Last 3 Months Insurance [facility] [place] Care Teams Drill Press Set Up Operator Relationship Specialty Start Date End Date Elizabet Dodd DO [address] [place] [address] PCP - General Family Medicine 09/16/23 Shaylee Kendall PCP - [facility] 12/28/23 Mariia Quinteros PA [address] [facility] [address] [place] [address] Physician Instructional Designer Neurology 09/14/24
--- OUTSIDE RECORDS SUMMARY | 2025-03-28 16:20 | XMS_ITS | Patient Health Record ---
Author Organization [facility] Address [address] [place] [address] Care Team Providers Care Clay Transporter Name Role Phone DAYNEDonald duarte Primary Care Provider [phone] Allergies Allergen (clinical drug ingredient) Drug/Non Drug [...] Insured Coverage Start Date Coverage End Date [facility] ed 22. [address] [place] [address] [id number] NONE ANGELES AMANDA Self - patient is the insured zMEDICAID [facility] after [id number]-[id number] med [address] [place] [address] [id number] ANGELES AMANDA Self - patient is the insured Medical (General) History Medical History History ICD Code LBP Bipolar Depression Surgical History Surgery Date(Month/Year) cholecystectomy 2007 carpal tunnel surg
[2025-03-28 16:26] LABS: Hematocrit 41.2 % (36.0-48.0); Hemoglobin 13.4 g/dL (12.0-16.0); Immature Granulocytes Abs Auto 0.05 10^3/uL (0.00-0.03); Immature Granulocytes Pct Auto 0.3 % (0.0-0.5); Lymphocytes Absolute Auto 3.8 10^3/uL (1.2-3.8); Mean Corpuscular HGB Conc 32.5 g/dL (29.9-35.2); Mean Corpuscular Hemoglobin 30.2 pg (26.7-34.0); Mean Corpuscular Volume 93.0 fL (81.0-99.0); Platelet Count 585 10^3/uL (150-450); Red Blood Count 4.43 10^6/uL (4.20-5.40); White Blood Count 15.0 10^3/uL (4.0-11.0)
[2025-03-28 16:36] LABS: Alanine Aminotransferase 39 U/L (14-59); Albumin Globulin Ratio 0.8; Albumin Level 3.4 g/dL (3.4-5.0); Alkaline Phosphatase 103 U/L (46-116); Anion Gap 13.5; Aspartate Amino Transferase 25 U/L (15-37); Blood Urea Nitrogen 9.0 mg/dL (7.0-18.0); Calcium 9.3 mg/dL (8.5-10.1); Carbon Dioxide 29.3 mmol/L (21.0-32.0); Chloride 99 mmol/L (98-107); Estimated GFR (African America >60 (>=60 mL/min/1.73m^2); Estimated GFR (Non-African Ame >60 (>=60 mL/min/1.73m^2); Globulin 4.4 g/dL; Glucose 105 mg/dL (74-106); Lipase 39.0 U/L (16.0-77.0); Potassium 3.8 mmol/L (3.5-5.1); Sodium 138 mmol/L (136-145); Total Protein 7.8 g/dL (6.4-8.2)
[2025-03-28 17:23] LABS: Glucose Urine UA NEGATIVE (NEGATIVE)
[2025-03-28 17:26] LABS: HCG Qualitative Urine* NEGATIVE (NEGATIVE)
[2025-03-28 17:31] LABS: Cast Seen? SEEN #/LPF (NONE SEEN); Crystals Seen? Seen #/HPF (None Seen)
--- NOTE | 2025-03-28 17:40 | CT_ITS ---
The [address] [address] Patient Name: ANGELES ORTIZ MRN: [id number] date: 1985 Sex: F Assigned Patient Location: ER Current Patient Location: ER Accession/Order Number: [id number] Exam Date: 03/28/2025 17:13 Report Date: 03/28/2025 18:03 At the request of: JENNI MARTINEZ Procedure: CT abdomen pelvis w con CT Abdomen and Pelvis withcontrast TECHNIQUE: Axial imaging with 2-D reconstruction. The CT exam was performed using one or more the following dose reduction techniques: Automated exposure control, adjustment of the MA and/or Kv according to patient size, or use of the iterative reconstruction technique. COMPARISON: 10/05/2024 History: Epigastric pain for 2 days. Nausea. LIMITATIONS: None LOWER THORAX Unremarkable LIVER: Hepatic steatosis GALLBLADDER: Cholecystectomy clips identified. BILE DUCTS: No dilatation SPLEEN: Unremarkable PANCREAS: Unremarkable ADRENAL GLANDS: Unremarkable KIDNEYS:Left nephrolithiasis measuring up to 5 mm. No hydronephrosis. AORTA: No abdominal aortic aneurysm identified. RETROPERITONEUM: No significant retroperitoneal abnormalities identified. MESENTERY:Unremarkable STOMACH:Postsurgical change SMALL BOWEL: The small bowel loops are nondistended. APPENDIX: The appendix is normal. COLON: Moderate burden of stool throughout the colon. URINARY BLADDER: Urinary bladder is unremarkable. REPRODUCTIVE SYSTEM: Reproductive structures are unremarkable. PNEUMOPERITONEUM: None PERITONEAL FLUID:None BONY STRUCTURES: Degenerative change ABDOMINAL WALL: Unremarkable CT/CT abdomen pelvis w con IMPRESSION: No focal inflammatory changes. No bowel obstruction. Constipation. Hepatic steatosis. Impression dictated by: Kevin Jones M.D. 03/28/2025 6:03 PM Dictation Location[facility] Electron[facility] authenticated by: [id number] Y Date: 03/28/2025 18:03
[2025-03-28 17:58] VITALS: BP 137/84; PULSE 72; O2SAT 95
[2025-03-28 18:29] VITALS: BP 119/73; PULSE 80; O2SAT 96
--- NOTE | 2025-03-28 18:54 | ED.GENADUL1 ---
Documented by User: MICHELLE Reyna 03/29/25 21:39 HPI HPI - General Adult General Chief complaint: Abdominal Pain Stated complaint: SHARP STOMACH PAINS Time Seen by Provider: 03/28/25 15:23 Source: patient Mode of arrival: walk-in Limitations: no limitations History of Present Illness HPI narrative: Patient is a 39 year old female that that is well known to this emergency department, presents with 2 days of epigastric abdominal pain. She states that the pain is constant, but worsening with eating. She states that she does have GERD but denies history of PUD. She did try to take Pepcid and omeprazole prior to arrival without relief of her pain. She is nauseous but denies vomiting or diarrhea. Her last BM was prior to arrival to the ED. She has a history of gastric sleeve, duodenal switch, Splenectomy, and Cholecystectomy. She denies chest pain or SOB. She has been seen here many times for abdominal pain, she has past issues with ovarian cysts and has more recently presented with RLQ pain. She is on the Mirena and has not had a menstrual cycle for 6 to 7 years. She denies any urinary symptoms. Related Data Home Medications ?Medication ?Instructions ?Recorded ?Confirmed aripiprazole 10 mg tablet 15 mg PO DAILY 12/13/22 03/03/25 buspirone 15 mg tablet 15 mg PO BID 12/13/22 03/03/25 cetirizine 10 mg tablet 10 mg PO DAILY 12/13/22 03/03/25 duloxetine 60 mg capsule,delayed 60 mg PO DAILY 12/13/22 03/03/25 release famotidine 20 mg tablet 20 mg PO Q12H PRN GI 12/13/22 03/03/25 lamotrigine 100 mg tablet 100 mg PO DAILY 12/13/22 03/03/25 montelukast 10 mg tablet 10 mg PO DAILY 12/13/22 03/03/25 omeprazole 40 mg capsule,delayed 40 mg PO DAILY 12/13/22 03/03/25 release pantoprazole 40 mg tablet,delayed 40 mg PO DAILY GI 12/13/22 03/03/25 release propranolol 60 mg tablet 60 mg PO Q12H 12/13/22 03/03/25 hydrochlorothiazide 12.5 mg tablet 12.5 mg PO QDAY 10/02/23 03/03/25 rizatriptan 10 mg disintegrating 10 mg PO Q2H PRN migraine headache 10/02/23 03/03/25 tablet dulaglutide 1.5 mg/0.5 mL 1.5 mg subcut QWEEK 02/15/25 03/03/25 subcutaneous pen injector (Trulicity) metformin 500 mg tablet 500 mg PO BID 02/15/25 03/03/25 ropinirole 02/15/25 Allergies Allergy/AdvReac Type Severity Reaction Status Date / Time adhesive tape Allergy Rash Verified 03/28/25 15:22 cephalexin (From Keflex) Allergy Rash Verified 03/28/25 15:22 Penicillins Allergy Rash Verified 03/28/25 15:22 amoxicillin (From Augmentin) AdvReac Gastrointestinal Verified 03/28/25 15:22 Upset clavulanic acid (From AdvReac Gastrointestinal Verified 03/28/25 15:22 Augmentin) Upset tramadol (From Ultram) AdvReac Gastrointestinal Verified 03/28/25 15:22 Upset Opioid HPI Opioid Management Most Recent Opioid Data: Last Pain Scale 8 03/28/25, 17:56 Review of Systems ROS Status of ROS 10 or more systems reviewed and unremarkable except as noted in history and below [facility] Medical History (Updated 03/28/25 @ 18:13 by MICHELLE Reyna) Ulnar neuropathy ?G56.20 - Lesion of ulnar nerve, unspecified upper limb (ICD-10) Anemia ?D64.9 - Anemia, unspecified (ICD-10) Insomnia ?G47.00 - Insomnia, unspecified (ICD-10) PTSD (post-traumatic stress disorder) ?F43.10 - Post-traumatic stress disorder, unspecified (ICD-10) Panic attacks ?F41.0 - Panic disorder [episodic paroxysmal anxiety] (ICD-10) Anxiety ?F41.9 - Anxiety disorder, unspecified (ICD-10) Depression ?F32.A - Depression, unspecified (ICD-10) COVID-19 ?U07.1 - COVID-19 (ICD-10) Migraine ?G43.909 - Migraine, unspecified, not intractable, without status migrainosus (ICD-10) Kidney stones ?N20.0 - Calculus of kidney (ICD-10) Heartburn ?R12 - Heartburn (ICD-10) Hypertension ?I10 - Essential (primary) hypertension (ICD-10) Sleep apnea ?G47.30 - Sleep apnea, unspecified (ICD-10) Pituitary tumor ?D49.7 - Neoplasm of unspecified behavior of endocrine glands and other parts of nervous system (ICD-10) GERD (gastroesophageal reflux disease) ?K21.9 - Gastro-esophageal reflux disease without esophagitis (ICD-10) Eczema ?L30.9 - Dermatitis, unspecified (ICD-10) Chronic back pain ?M54.9 - Dorsalgia, unspecified (ICD-10) ?G89.29 - Other chronic pain (ICD-10) Bipolar depression ?F31.9 - Bipolar disorder, unspecified (ICD-10) Retained intrauterine contraceptive device (IUD) ?T83.39XA - Other mechanical complication of intrauterine contraceptive device, initial encounter (ICD-10) Surgical History (Updated 10/02/23 @ 09:19 by Mariia Moscoso NP) History of esophagogastroduodenoscopy (EGD) ?Z98.890 - Other specified postprocedural states (ICD-10) 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 - Bariatric surgery status (ICD-10) History of tonsillectomy ?Z90.89 - Acquired absence of other organs (ICD-10) History of cholecystectomy ?Z90.49 - Acquired absence of other specified parts of digestive tract (ICD-10) History of carpal tunnel release ?Z98.890 - Other specified postprocedural states (ICD-10) History of spinal surgery ?Z98.890 - Other specified postprocedural states (ICD-10) History of spinal surgery ?Z98.890 - Other specified postprocedural states (ICD-10) H/O splenectomy ?Z90.81 - Acquired absence of spleen (ICD-10) H/O laparoscopy ?Z98.890 - Other specified postprocedural states (ICD-10) H/O gastric sleeve ?Z90.3 - Acquired absence of stomach [part of] (ICD-10) Family History (Updated 10/02/23 @ 09:19 by Mariia Moscoso NP) Other Family history of diabetes mellitus Family history of hypertension Family history of myocardial infarction Lymphoma Social History Within the past year, how often did you have a drink containing alcohol: never Score interpretation: A score less than 3 is consistent with normal alcohol consumption. Smoking status: Former smoker Non-prescribed substance use: denies use Highest level of school completed/degree received: Associate degree: occupational, technical, vocational program Little interest or pleasure in doing things: not at all Feeling down, depressed, or hopeless: not at all Exam Narrative Exam Narrative: General: No distress, age-appropriate, morbidly obese Skin: Warm, dry, no pallor. No rash. Head: Normocephalic, atraumatic. Neck: Supple, non-tender. Eye: Pupils are equal, round and EOMI. No scleral icterus. Cardiovascular: Regular Rate and Rhythm without murmur, gallop or rub. Respiratory: No accessory muscle use or respiratory distress. Lungs are clear to auscultation, no wheezing, rales or rhonchi Musculoskeletal: Full ROM of all extremities, no calf or popliteal tenderness GI: Abdomen is soft, obese, tender with palpation of the epigastric region. No masses appreciated. No rebound, guarding, or rigidity noted. Neurological: A&O x4. No cranial nerve dysfunction observed. No truncal ataxia. Moves all extremities. Sensation intact. Psychiatric: Cooperative and interactive. Normal mood and affect. Constitutional Vital Signs, click to edit/add: Last Vital Signs Temp 97.7 F 03/28/25 15:22 Pulse 80 03/28/25 18:29 Resp 16 03/28/25 18:29 BP 119/73 03/28/25 18:29 Pulse Ox 96 03/28/25 18:29 O2 Del Method Room Air 03/28/25 18:29 Documenting provider has reviewed patient's vital signs: yes Course Vital Signs Vital signs: Vital Signs Temperature 97.7 F 03/28/25 15:22 Pulse Rate 78 03/28/25 15:22 Respiratory Rate 20 03/28/25 15:22 Blood Pressure 152/95 H 03/28/25 15:22 Pulse Oximetry 97 03/28/25 15:22 Oxygen Delivery Method Room Air 03/28/25 15:22 Temperature 97.7 F 03/28/25 15:22 Pulse Rate 80 03/28/25 18:29 Respiratory Rate 16 03/28/25 18:29 Blood Pressure 119/73 03/28/25 18:29 Pulse Oximetry 96 03/28/25 18:29 Oxygen Delivery Method Room Air 03/28/25 18:29 Medical Decision Making MDM Narrative Medical decision making narrative: This is a 39yr old female well known to this emergency department that presented with complaint of 2 days of constant epigastric pain, worse with eating. Recently she has had issues with ovarian cyts and presented with RLQ pain previously. She did try to take Omeprazole without relief. She endorses nausea, no vomiting or diarrhea. She denies chest pain or SOB. On arrival patient is in no distress, vitals stable, patient is afebrile. She is obese and has a large transverse well healed surgical scar over her abdomen. Epigastric ttp, no rebound tenderness. IV placed. CBC, CMP, Lipase, CT Ab/Pel ordered. Zofran 4mg IVP given for nausea. Labs [id number] 15, no left shift, likely reactive to stress/pain CMP-Unremarkable, Wnl Lipase- Wnl UA-unremarkable CT Ab/Pel: No focal inflammatory changes. No bowel obstruction. Constipation. Hepatic steatosis. Labs and testing discussed with patient. Normal labs and imaging argue against pancreatitis, obstruction, perforation, or ischemia. CT showing constipation supports a benign cause. Bowel regimen recommended to patient. We discussed discharge to home with close PCP follow up and patient agrees with plan. Patient discharged in stable condition with plan for bowel regimen, continue PPI, and close follow up with PCP and/or Bariatric Surgeon. ATTENDING ADDENDUM: Dr. Tirado Patient seen and evaluated at bedside with midlevel provider. Agree with plan. Differential Diagnosis Differential Diagnosis: Adhesion, GERD, PUD, Constipation Lab Data Lab results reviewed: Yes I reviewed the patient's lab results Labs: Lab Results 03/28/25 03/28/25 Range/Units 16:06 17:15 WBC 15.0 H (4.0-11.0) 10^3/uL RBC 4.43 (4.20-5.40) 10^6/uL Hgb 13.4 (12.0-16.0) g/dL Hct 41.2 (36.0-48.0) % MCV 93.0 (81.0-99.0) fL MCH 30.2 (26.7-34.0) pg MCHC 32.5 (29.9-35.2) g/dL RDW 13.8 (11.0-15.0) % Plt Count 585 H (150-450) 10^3/uL MPV 9.3 L (9.5-13.5) fL Neut % (Auto) 63.8 (43.0-75.0) % Lymph % (Auto) 25.3 (20.5-60.0) % Mccormick % (Auto) 7.5 (1.7-12.0) % Eos % (Auto) 2.5 (0.9-7.0) % Baso % (Auto) 0.6 (0.2-2.0) % Neut # (Auto) 9.6 H (1.4-6.5) 10^3/uL Lymph # (Auto) 3.8 (1.2-3.8) 10^3/uL Mccormick # (Auto) 1.1 H (0.3-0.8) 10^3/uL Eos # (Auto) 0.4 (0.0-0.7) 10^3/uL Baso # (Auto) 0.1 (0.0-0.1) 10^3/uL Abs Immat Gran (auto) 0.05 H (0.00-0.03) 10^3/uL Imm/Tot Granulo (auto) 0.3 (0.0-0.5) % Sodium 138 (136-145) mmol/L Potassium 3.8 (3.5-5.1) mmol/L Chloride 99 (98-107) mmol/L Carbon Dioxide 29.3 (21.0-32.0) mmol/L Anion Gap 13.5 BUN 9.0 (7.0-18.0) mg/dL Creatinine 0.63 (0.55-1.02) mg/dL Est GFR ( Amer) >60 (>=60 mL/min/1.73m^2) Est GFR (Non-Af Amer) >60 (>=60 mL/min/1.73m^2) BUN/Creatinine Ratio 14.3 Glucose 105 (74-106) mg/dL Calcium 9.3 (8.5-10.1) mg/dL Total Bilirubin 0.3 (0.2-1.0) mg/dL AST 25 (15-37) U/L ALT 39 (14-59) U/L Alkaline Phosphatase 103 (46-116) U/L Total Protein 7.8 (6.4-8.2) g/dL Albumin 3.4 (3.4-5.0) g/dL Globulin 4.4 g/dL Albumin/Globulin Ratio 0.8 Lipase 39.0 (16.0-77.0) U/L Urine Color Yellow (YELLOW) Urine Clarity Sl cloudy (CLEAR) Urine pH 7.0 (5.0-9.0) Ur Specific Baker 1.015 (1.005-1.025) Urine Protein Negative (NEG/TRACE) mg/dL Urine Glucose (UA) Negative (NEGATIVE) mg/dL Urine Ketones Negative (NEGATIVE) mg/dL Urine Occult Blood Negative (NEGATIVE) Urine Nitrite Negative (NEGATIVE) Urine Bilirubin Negative (NEGATIVE) Urine Urobilinogen 2.0 A (0.2-1.0) EU/dL Ur Leukocyte Esterase Trace A (NEGATIVE) Urine RBC 0-2 (0-2) #/HPF Urine WBC 0-2 A (NONE SEEN) #/HPF Ur Squamous Epith Cells Moderate A (NONE/RARE) #/LPF Urine Crystals Seen A (None Seen) #/HPF Amorphous Sediment Few Urine Bacteria Trace A (NONE SEEN) #/HPF Urine Casts Seen A (NONE SEEN) #/LPF Hyaline Casts Rare Urine Mucus Small A (NONE SEEN) Urine HCG, Qual Negative (NEGATIVE) Imaging Data CT scan - abdomen: Attestation: I have reviewed the pertinent imaging results. Radiologist's impression: ITS Impressions Abdomen/Pelvis CT 03/28/25 17:40 IMPRESSION: No focal inflammatory changes. No bowel obstruction. Constipation. Hepatic steatosis. Impression dictated by: Kevin Jones M.D. 03/28/2025 6:03 PM Dictation Location[facility] Electronically authenticated by: [id number] Y Date: 03/28/2025 18:03 Discharge Plan Discharge Chief Complaint: Abdominal Pain Clinical Impression: Constipation Patient Disposition: Home, Self-Care Time of Disposition Decision: 18:12 Condition: Good Mode of Transportation: Private Vehicle Prescriptions / Home Meds: No Action rizatriptan 10 mg tablet,disintegrating 10 mg PO Q2H PRN (Reason: migraine headache) hydrochlorothiazide 12.5 mg tablet 12.5 mg PO QDAY metformin 500 mg tablet 500 mg PO BID Trulicity 1.5 mg/0.5 mL pen injector 1.5 mg subcut QWEEK ropinirole tablet aripiprazole 10 mg tablet 15 mg PO DAILY Patient Comments: HS buspirone 15 mg tablet 15 mg PO BID cetirizine 10 mg tablet 10 mg PO DAILY duloxetine 60 mg capsule,delayed release(DR/EC) 60 mg PO DAILY famotidine 20 mg tablet 20 mg PO Q12H PRN (Reason: GI) lamotrigine 100 mg tablet 100 mg PO DAILY montelukast 10 mg tablet 10 mg PO DAILY omeprazole 40 mg capsule,delayed release(DR/EC) 40 mg PO DAILY pantoprazole 40 mg tablet,delayed release (DR/EC) 40 mg PO DAILY propranolol 60 mg tablet 60 mg PO Q12H Print Language: Libyan Instructions: Constipation (ED), Acute Abdominal Pain (ED) Referrals: Lisa Roberts, [employer] [Primary Care Provider] - 1 week Discharge Date/Time: 03/28/25 18:30 Documented by User: Dante Tirado DO 03/28/25 18:55 HPI HPI - General Adult General Chief complaint: Abdominal Pain Stated complaint: SHARP STOMACH PAINS Time Seen by Provider: 03/28/25 15:23 Related Data Home Medications ?Medication ?Instructions ?Recorded ?Confirmed aripiprazole 10 mg tablet 15 mg PO DAILY 12/13/22 03/03/25 buspirone 15 mg tablet 15 mg PO BID 12/13/22 03/03/25 cetirizine 10 mg tablet 10 mg PO DAILY 12/13/22 03/03/25 duloxetine 60 mg capsule,delayed 60 mg PO DAILY 12/13/22 03/03/25 release famotidine 20 mg tablet 20 mg PO Q12H PRN GI 12/13/22 03/03/25 lamotrigine 100 mg tablet 100 mg PO DAILY 12/13/22 03/03/25 montelukast 10 mg tablet 10 mg PO DAILY 12/13/22 03/03/25 omeprazole 40 mg capsule,delayed 40 mg PO DAILY 12/13/22 03/03/25 release pantoprazole 40 mg tablet,delayed 40 mg PO DAILY GI 12/13/22 03/03/25 release propranolol 60 mg tablet 60 mg PO Q12H 12/13/22 03/03/25 hydrochlorothiazide 12.5 mg tablet 12.5 mg PO QDAY 10/02/23 03/03/25 rizatriptan 10 mg disintegrating 10 mg PO Q2H PRN migraine headache 10/02/23 03/03/25 tablet dulaglutide 1.5 mg/0.5 mL 1.5 mg subcut QWEEK 02/15/25 03/03/25 subcutaneous pen injector ([facility]) metformin 500 mg tablet 500 mg PO BID 02/15/25 03/03/25 ropinirole 02/15/25 Allergies Allergy/AdvReac Type Severity Reaction Status Date / Time adhesive tape Allergy Rash Verified 03/28/25 15:22 cephalexin (From Keflex) Allergy Rash Verified 03/28/25 15:22 Penicillins Allergy Rash Verified 03/28/25 15:22 amoxicillin (From Augmentin) AdvReac Gastrointestinal Verified 03/28/25 15:22 Upset clavulanic acid (From AdvReac Gastrointestinal Verified 03/28/25 15:22 Augmentin) Upset tramadol (From Ultram) AdvReac Gastrointestinal Verified 03/28/25 15:22 Upset Opioid HPI Opioid Management Most Recent Opioid Data: Last Pain Scale 8 03/28/25, 17:56 PFSH PFSH Medical History (Updated 03/28/25 @ 18:13 by MICHELLE Reyna) Ulnar neuropathy ?G56.20 - Lesion of ulnar nerve, unspecified upper limb (ICD-10) Anemia ?D64.9 - Anemia, unspecified (ICD-10) Insomnia ?G47.00 - Insomnia, unspecified (ICD-10) PTSD (post-traumatic stress disorder) ?F43.10 - Post-traumatic stress disorder, unspecified (ICD-10) Panic attacks ?F41.0 - Panic disorder [episodic paroxysmal anxiety] (ICD-10) Anxiety ?F41.9 - Anxiety disorder, unspecified (ICD-10) Depression ?F32.A - Depression, unspecified (ICD-10) COVID-19 ?U07.1 - COVID-19 (ICD-10) Migraine ?G43.909 - Migraine, unspecified, not intractable, without status migrainosus (ICD-10) Kidney stones ?N20.0 - Calculus of kidney (ICD-10) Heartburn ?R12 - Heartburn (ICD-10) Hypertension ?I10 - Essential (primary) hypertension (ICD-10) Sleep apnea ?G47.30 - Sleep apnea, unspecified (ICD-10) Pituitary tumor ?D49.7 - Neoplasm of unspecified behavior of endocrine glands and other parts of nervous system (ICD-10) GERD (gastroesophageal reflux disease) ?K21.9 - Gastro-esophageal reflux disease without esophagitis (ICD-10) Eczema ?L30.9 - Dermatitis, unspecified (ICD-10) Chronic back pain ?M54.9 - Dorsalgia, unspecified (ICD-10) ?G89.29 - Other chronic pain (ICD-10) Bipolar depression ?F31.9 - Bipolar disorder, unspecified (ICD-10) Retained intrauterine contraceptive device (IUD) ?T83.39XA - Other mechanical complication of intrauterine contraceptive device, initial encounter (ICD-10) Surgical History (Updated 10/02/23 @ 09:19 by Mariia Moscoso NP) History of esophagogastroduodenoscopy (EGD) ?Z98.890 - Other specified postprocedural states (ICD-10) 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 - Bariatric surgery status (ICD-10) History of tonsillectomy ?Z90.89 - Acquired absence of other organs (ICD-10) History of cholecystectomy ?Z90.49 - Acquired absence of other specified parts of digestive tract (ICD-10) History of carpal tunnel release ?Z98.890 - Other specified postprocedural states (ICD-10) History of spinal surgery ?Z98.890 - Other specified postprocedural states (ICD-10) History of spinal surgery ?Z98.890 - Other specified postprocedural states (ICD-10) H/O splenectomy ?Z90.81 - Acquired absence of spleen (ICD-10) H/O laparoscopy ?Z98.890 - Other specified postprocedural states (ICD-10) H/O gastric sleeve ?Z90.3 - Acquired absence of stomach [part of] (ICD-10) Family History (Updated 10/02/23 @ 09:19 by Mariia Moscoso NP) Other Family history of diabetes mellitus Family history of hypertension Family history of myocardial infarction Lymphoma Social History Within the past year, how often did you have a drink containing alcohol: never Score interpretation: A score less than 3 is consistent with normal alcohol consumption. Smoking status: Former smoker Non-prescribed substance use: denies use Highest level of school completed/degree received: Associate degree: occupational, technical, vocational program Little interest or pleasure in doing things: not at all Feeling down, depressed, or hopeless: not at all Exam Constitutional Vital Signs, click to edit/add: Last Vital Signs Temp 97.7 F 03/28/25 15:22 Pulse 80 03/28/25 18:29 Resp 16 03/28/25 18:29 BP 119/73 03/28/25 18:29 Pulse Ox 96 03/28/25 18:29 O2 Del Method Room Air 03/28/25 18:29 Course Vital Signs Vital signs: Vital Signs Temperature 97.7 F 03/28/25 15:22 Pulse Rate 78 03/28/25 15:22 Respiratory Rate 20 03/28/25 15:22 Blood Pressure 152/95 H 03/28/25 15:22 Pulse Oximetry 97 03/28/25 15:22 Oxygen Delivery Method Room Air 03/28/25 15:22 Temperature 97.7 F 03/28/25 15:22 Pulse Rate 80 03/28/25 18:29 Respiratory Rate 16 03/28/25 18:29 Blood Pressure 119/73 03/28/25 18:29 Pulse Oximetry 96 03/28/25 18:29 Oxygen Delivery Method Room Air 03/28/25 18:29 Medical Decision Making MDM Narrative Medical decision making narrative: ATTENDING ADDENDUM: Dr. Tirado Patient seen and evaluated at bedside with midlevel provider. Agree with plan. Lab Data Labs: Lab Results 03/28/25 03/28/25 Range/Units 16:06 17:15 WBC 15.0 H (4.0-11.0) 10^3/uL RBC 4.43 (4.20-5.40) 10^6/uL Hgb 13.4 (12.0-16.0) g/dL Hct 41.2 (36.0-48.0) % MCV 93.0 (81.0-99.0) fL MCH 30.2 (26.7-34.0) pg MCHC 32.5 (29.9-35.2) g/dL RDW 13.8 (11.0-15.0) % Plt Count 585 H (150-450) 10^3/uL MPV 9.3 L (9.5-13.5) fL Neut % (Auto) 63.8 (43.0-75.0) % Lymph % (Auto) 25.3 (20.5-60.0) % Mccormick % (Auto) 7.5 (1.7-12.0) % Eos % (Auto) 2.5 (0.9-7.0) % Baso % (Auto) 0.6 (0.2-2.0) % Neut # (Auto) 9.6 H (1.4-6.5) 10^3/uL Lymph # (Auto) 3.8 (1.2-3.8) 10^3/uL Mccormick # (Auto) 1.1 H (0.3-0.8) 10^3/uL Eos # (Auto) 0.4 (0.0-0.7) 10^3/uL Baso # (Auto) 0.1 (0.0-0.1) 10^3/uL Abs Immat Gran (auto) 0.05 H (0.00-0.03) 10^3/uL Imm/Tot Granulo (auto) 0.3 (0.0-0.5) % Sodium 138 (136-145) mmol/L Potassium 3.8 (3.5-5.1) mmol/L Chloride 99 (98-107) mmol/L Carbon Dioxide 29.3 (21.0-32.0) mmol/L Anion Gap 13.5 BUN 9.0 (7.0-18.0) mg/dL Creatinine 0.63 (0.55-1.02) mg/dL Est GFR ( Amer) >60 (>=60 mL/min/1.73m^2) Est GFR (Non-Af Amer) >60 (>=60 mL/min/1.73m^2) BUN/Creatinine Ratio 14.3 Glucose 105 (74-106) mg/dL Calcium 9.3 (8.5-10.1) mg/dL Total Bilirubin 0.3 (0.2-1.0) mg/dL AST 25 (15-37) U/L ALT 39 (14-59) U/L Alkaline Phosphatase 103 (46-116) U/L Total Protein 7.8 (6.4-8.2) g/dL Albumin 3.4 (3.4-5.0) g/dL Globulin 4.4 g/dL Albumin/Globulin Ratio 0.8 Lipase 39.0 (16.0-77.0) U/L Urine Color Yellow (YELLOW) Urine Clarity Sl cloudy (CLEAR) Urine pH 7.0 (5.0-9.0) Ur Specific Baker 1.015 (1.005-1.025) Urine Protein Negative (NEG/TRACE) mg/dL Urine Glucose (UA) Negative (NEGATIVE) mg/dL Urine Ketones Negative (NEGATIVE) mg/dL Urine Occult Blood Negative (NEGATIVE) Urine Nitrite Negative (NEGATIVE) Urine Bilirubin Negative (NEGATIVE) Urine Urobilinogen 2.0 A (0.2-1.0) EU/dL Ur Leukocyte Esterase Trace A (NEGATIVE) Urine RBC 0-2 (0-2) #/HPF Urine WBC 0-2 A (NONE SEEN) #/HPF Ur Squamous Epith Cells Moderate A (NONE/RARE) #/LPF Urine Crystals Seen A (None Seen) #/HPF Amorphous Sediment Few Urine Bacteria Trace A (NONE SEEN) #/HPF Urine Casts Seen A (NONE SEEN) #/LPF Hyaline Casts Rare Urine Mucus Small A (NONE SEEN) Urine HCG, Qual Negative (NEGATIVE) Imaging Data CT scan - abdomen: Radiologist's impression: ITS Impressions Abdomen/Pelvis CT 03/28/25 17:40 IMPRESSION: No focal inflammatory changes. No bowel obstruction. Constipation. Hepatic steatosis. Impression dictated by: Kevin Jones M.D. 03/28/2025 6:03 PM Dictation Location: [place] [address] Electronically authenticated by: [id number] Y Date: 03/28/2025 18:03 Discharge Plan Discharge Chief Complaint: Abdominal Pain Clinical Impression: Constipation Patient Disposition: Home, Self-Care Time of Disposition Decision: 18:12 Condition: Good Mode of Transportation: Private Vehicle Prescriptions / Home Meds: No Action rizatriptan 10 mg tablet,disintegrating 10 mg PO Q2H PRN (Reason: migraine headache) hydrochlorothiazide 12.5 mg tablet 12.5 mg PO QDAY metformin 500 mg tablet 500 mg PO BID Trulicity 1.5 mg/0.5 mL pen injector 1.5 mg subcut QWEEK ropinirole tablet aripiprazole 10 mg tablet 15 mg PO DAILY Patient Comments: HS buspirone 15 mg tablet 15 mg PO BID cetirizine 10 mg tablet 10 mg PO DAILY duloxetine 60 mg capsule,delayed release(DR/EC) 60 mg PO DAILY famotidine 20 mg tablet 20 mg PO Q12H PRN (Reason: GI) lamotrigine 100 mg tablet 100 mg PO DAILY montelukast 10 mg tablet 10 mg PO DAILY omeprazole 40 mg capsule,delayed release(DR/EC) 40 mg PO DAILY pantoprazole 40 mg tablet,delayed release (DR/EC) 40 mg PO DAILY propranolol 60 mg tablet 60 mg PO Q12H Print Language: Libyan Instructions: Constipation (ED), Acute Abdominal Pain (ED) Referrals: Lisa Roberts NP [Primary Care Provider] - 1 week Discharge Date/Time: 03/28/25 18:30
== END 2025-03-28 18:30 | disposition home or self-care (01) ==
PROVIDERS: Physician Assistant; Emergency Provider Student in an Organized Health Care Education/Training Program; PCP Nurse Practitioner Family
DX: K59.00 Constipation, unspecified (principal); K21.9 Gastro-esophageal reflux disease without esophagitis; Z98.84 Bariatric surgery status; Z90.49 Acquired absence of other specified parts of digestive tract; Z90.81 Acquired absence of spleen; Z87.891 Personal history of nicotine dependence; E66.01 Morbid (severe) obesity due to excess calories; Z68.44 Body mass index [BMI] 60.0-69.9, adult
CPT/HCPCS: 36415; 74177; 80053; 81001; 83690; 84703; 85025; 96374; 99284; J2405; Q9967